=== PATIENT | female | born 1960 | race Caucasian/White ===

== ENCOUNTER → 2018-03-12 14:30 | Outpatient (CLI) | payer MEDICARE, OTHER, SELFPAY | PROVIDERS: PCP Physician Assistant Medical; Visit Provider Student in an Organized Health Care Education/Training Program | DX: Z47.89 Encounter for other orthopedic aftercare (principal); M70.22 Olecranon bursitis, left elbow; R22.32 Localized swelling, mass and lump, left upper limb ==

== ENCOUNTER → 2018-03-17 10:00 | Outpatient (CLI) | payer MEDICARE, OTHER, SELFPAY | PROVIDERS: PCP Physician Assistant Medical; Visit Provider Student in an Organized Health Care Education/Training Program | DX: T81.31XD Disruption of external operation (surgical) wound, not elsewhere classified, subsequent encounter (principal) ==

== ENCOUNTER → 2018-04-09 09:15 | Outpatient (CLI) | payer MEDICARE, OTHER, SELFPAY | PROVIDERS: PCP Physician Assistant Medical; Visit Provider Student in an Organized Health Care Education/Training Program | DX: Z47.89 Encounter for other orthopedic aftercare (principal); M70.22 Olecranon bursitis, left elbow | CPT/HCPCS: L3670 ==

== ENCOUNTER → 2018-04-25 09:55 | Outpatient (BNVA) | payer MEDICARE, OTHER, SELFPAY | PROVIDERS: PCP Physician Assistant Medical; Visit Provider Student in an Organized Health Care Education/Training Program | DX: Z47.89 Encounter for other orthopedic aftercare (principal); M70.22 Olecranon bursitis, left elbow ==

== ENCOUNTER → 2018-05-26 09:12 | Outpatient (BNVA) | payer MEDICARE, OTHER, SELFPAY | PROVIDERS: PCP Physician Assistant Medical; Referring Provider Physician Assistant Medical; Visit Provider Student in an Organized Health Care Education/Training Program | DX: T81.31XD Disruption of external operation (surgical) wound, not elsewhere classified, subsequent encounter (principal); M70.22 Olecranon bursitis, left elbow ==

== ENCOUNTER 2018-06-02 15:07 | Outpatient (REF) | payer MEDICARE, OTHER, SELFPAY ==
[2018-06-02 21:12] LABS: ALT 22 U/L (12-78); AST 14 U/L (15-37); Albumin 3.7 g/dL (3.4-5.0); Alkaline Phosphatase 80 U/L (46-116); Anion Gap 8.3 mmol/L (3-11); BUN 22 mg/dL (7-18); Bilirubin, Total 0.2 mg/dL (0.2-1.0); CO2 27.7 mmol/L (21.0-32.0); CREATININE 1.23 mg/dL (0.55-1.02); Calcium 9.5 mg/dL (8.5-10.1); Chloride 105 mmol/L (98-107); Cholesterol 165 mg/dL (50-200); Estimated GFR 45.33 (mL/min/1.73m2); Glucose 107 mg/dL (70-100); HDL Cholesterol 52 mg/dL (40-60); LDL CHOLESTEROL 87 mg/dL (<100); Potassium 4.7 mmol/L (3.5-5.1); Sodium 141 mmol/L (136-145); Total Protein 6.9 g/dL (6.4-8.2); Triglyceride 107 mg/dL (30-150)
== END 2018-06-02 15:27 ==
LOC: NCHCN 15:07
PROVIDERS: PCP Physician Assistant Medical; Visit Provider Physician Assistant Medical
DX: E78.5 Hyperlipidemia, unspecified (principal)
CPT/HCPCS: 80053; 80061; 83721

== ENCOUNTER → 2018-07-11 08:59 | Outpatient (BNVA) | payer MEDICARE, OTHER, SELFPAY | PROVIDERS: PCP Physician Assistant Medical; Referring Provider Physician Assistant Medical; Visit Provider Student in an Organized Health Care Education/Training Program | DX: M25.561 Pain in right knee (principal); T81.31XA Disruption of external operation (surgical) wound, not elsewhere classified, initial encounter; Z47.89 Encounter for other orthopedic aftercare; M70.22 Olecranon bursitis, left elbow | CPT/HCPCS: 99212; 99213 ==

== ENCOUNTER → 2018-08-15 09:59 | Outpatient (BNVA) | payer MEDICARE, OTHER, SELFPAY | PROVIDERS: PCP Physician Assistant Medical; Referring Provider Physician Assistant Medical; Visit Provider Student in an Organized Health Care Education/Training Program | DX: T81.31XD Disruption of external operation (surgical) wound, not elsewhere classified, subsequent encounter (principal); M70.22 Olecranon bursitis, left elbow | CPT/HCPCS: 99213 ==

== ENCOUNTER 2018-10-30 17:15 | Emergency (ER) | payer MEDICARE, OTHER, SELFPAY ==
[2018-10-30 17:39] VITALS: BP 160/90; PULSE 99; RESP 20; TEMP 36.8; O2SAT 97
--- NOTE | 2018-10-30 17:52 | ED.GENADUL_ITS ---
Discharge Plan Disposition Patient Disposition: HOME Condition: Stable Discharge Details Chief Complaint: RespSymp Clinical Impression: COPD exacerbation, Influenza A Primary Care Provider: [facility] ED Provider: Jacob Cevallos [place] Meds and New Rx's Prescriptions: New prednisone 20 mg tablet 60 mg PO DAILY 4 Days Qty: 12 RF: 0 levofloxacin 750 mg tablet 750 mg PO DAILY 4 Days Qty: 4 RF: 0 prochlorperazine maleate [Compazine] 10 mg tablet 10 mg PO TID PRN (Reason: nausea and vomiting) Qty: 30 RF: 0 oseltamivir [Tamiflu] 75 mg capsule 75 mg PO BID 5 Days Qty: 10 RF: 0 No Action ropinirole 2 mg tablet 2 mg PO QHS RF: 0 meloxicam 7.5 mg tablet 7.5 mg PO BID RF: 0 promethazine 25 mg tablet 25 mg PO Q6H PRNRF: 0 diphenoxylate-atropine 2.5-0.025 mg tablet 2 tab PO QID PRNRF: 0 furosemide [Lasix] 20 mg tablet 40 mg PO DAILY RF: 0 bupropion HCl [Wellbutrin SR] 200 mg tablet sustained-release 12 hr 200 mg PO BID RF: 0 ipratropium bromide 42 mcg (0.06 %) spray,non-aerosol 2 spray JOHNY TID RF: 0 albuterol sulfate [Ventolin HFA] 90 mcg/actuation HFA aerosol inhaler 2 puff IH Q6H PRNRF: 0 guaifenesin 200 mg tablet 600 mg PO BID RF: 0 oxycodone 20 mg tablet 20 mg PO BID RF: 0 Oxygen Tank .ROUTE .MEDSUPPLY Qty: 1 RF: 0 montelukast [Singulair] 10 MG tablet 10 mg PO HS RF: 0 rosuvastatin [Crestor] 10 MG tablet 10 mg PO HS RF: 0 loratadine [Claritin Liqui-Gel] 10 MG capsule 10 mg PO DAILY RF: 0 hydrochlorothiazide 25 MG tablet 25 mg PO DAILY RF: 0 Narcan 4 MG spray,non-aerosol 4 mg NS PRN Qty: 2 RF: 0 baclofen 10 mg tablet 10 mg PO TID PRNRF: 0 Dexilant 60 MG capsule,biphase delayed releas 60 mg PO DAILY RF: 0 gabapentin [Neurontin] 300 MG capsule 900 mg PO TID RF: 0 fluticasone propionate 16 GM spray,suspension 2 drp Intranasal DAILY RF: 0 citalopram 40 mg tablet 40 mg PO HS RF: 0 Symbicort 10.2 GM HFA aerosol inhaler 2 inh Inhalation BID RF: 0 lisinopril 10 MG tablet 10 mg PO DAILY RF: 0 Viberzi 100 MG tablet 100 mg PO BID RF: 0 Robitussin Cough and Cold CF 118 ML liquid 118 ml PO PRN PRNRF: 0 acetaminophen [Acetaminophen Extra Strength] 500 MG tablet 1,000 mg PO Q8H PRN PRNQty: 100 RF: 0 oxycodone 10 mg tablet 10 mg PO BID RF: 0 acetaminophen [Mapap Extra Strength] 500 MG tablet 1,000 mg PO QID PRNQty: 90 RF: 3 nystatin 100,000 UNIT/ML suspension 500,000 unit PO QID Qty: 200 RF: 1 Discharge Instructions Instructions: COPD (Chronic Obstructive Pulmonary Disease) (ED), H1N1 Influenza (ED) Additional Instructions: follow up with your primary care provider within a week if you feel you are becoming more ill or having worsening shortness of breath return to the emergency department for reevaluation Medical Decision Making 58 yo female with hx of copd comes in with chief complaint of increased cough for over a week along with myalgias and diarrhea. She denies recent travel or high fevers, has had chills. Denies ivdu, does smoke, denies alcohol. She is in no distress on exam speaking in full sentneces, she has wheezing throughout on her lung exam on both sides. No leg edema or calf pain and no pleuritic chest pain so doubt pe and no chest pressure or pain to suggest acs and physical exam is consistent with copd exacerbation. Will treat her for this wth neb and steroids and given increased cough start abx, will also chest for influenza pt remains hd stable, speaking in full sentences, only has mild apical wheezing now bilaterally. Flu test positive, will start tamiflu and will d/c home, advised f/u with pcp and return precautions given Differential Diagnosis copd exacerbation, uri, influenza, pna Lab Data Lab results reviewed: Yes I reviewed the patient's lab results. HPI General Mode of arrival: ambulatory . Date/Time Provider Initiated Documentation: 10/30/18 17:25 . Limitations to Documentation: no limitations . Information obtained by: patient . History of Present Illness 58 year old F presents to the emergency department with the chief complaint of cough, described as moderate, Patient started experiencing this week(s) (1) and it has been intermittent. No relieving factors improve symptom(s), No exacerbating factors reported . Patient did receive the following treatments prior to arrival, none Related Data Home Medications Medication Instructions Recorded Confirmed Dexilant 60 mg PO DAILY 07/11/13 10/30/18 fluticasone propionate 2 drp INTRANASAL DAILY 07/11/13 10/30/18 gabapentin [Neurontin] 900 mg PO TID 07/11/13 10/30/18 Symbicort 2 inh INHALATION BID 08/14/14 10/30/18 lisinopril 10 mg PO DAILY 08/14/14 10/30/18 montelukast [Singulair] 10 mg PO HS 02/21/17 10/30/18 rosuvastatin [Crestor] 10 mg PO HS 02/21/17 10/30/18 hydrochlorothiazide 25 mg PO DAILY tab-cap 02/25/17 10/30/18 loratadine [Claritin Liqui-Gel] 10 mg PO DAILY 02/25/17 10/30/18 Narcan 4 mg NS PRN #2 spray 06/04/17 10/30/18 acetaminophen [Mapap Extra 1,000 mg PO QID PRN #90 tab 06/04/17 10/30/18 Strength] Robitussin Cough and Cold CF 118 ml PO PRN PRN 03/03/18 10/30/18 Viberzi 100 mg PO BID 03/03/18 10/30/18 acetaminophen [Acetaminophen Extra 1,000 mg PO Q8H PRN PRN #100 tab 03/04/18 10/30/18 Strength] nystatin 500,000 unit PO QID #200 ml 03/18/18 10/30/18 Oxygen #1 each 10/16/18 10/30/18 albuterol sulfate HFA 90 2 puff IH Q6H PRN 10/16/18 10/30/18 mcg/actuation aerosol inhaler baclofen 10 mg tablet 10 mg PO TID PRN tab 10/16/18 10/30/18 bupropion HCl SR 200 mg tablet,12 200 mg PO BID 10/16/18 10/30/18 hr sustained-release citalopram 40 mg tablet 40 mg PO HS 10/16/18 10/30/18 diphenoxylate-atropine 2.5 2 tab PO QID PRN tab 10/16/18 10/30/18 mg-0.025 mg tablet furosemide 20 mg tablet 40 mg PO DAILY tab 10/16/18 10/30/18 guaifenesin 200 mg tablet 600 mg PO BID tab 10/16/18 10/30/18 ipratropium bromide 42 mcg (0.06 2 spray JOHNY TID 10/16/18 10/30/18 %) nasal spray meloxicam 7.5 mg tablet 7.5 mg PO BID tab 10/16/18 10/30/18 oxycodone 10 mg tablet 10 mg PO BID tab 10/16/18 10/30/18 oxycodone 20 mg tablet 20 mg PO BID tab 10/16/18 10/30/18 promethazine 25 mg tablet 25 mg PO Q6H PRN 10/16/18 10/30/18 ropinirole 2 mg tablet 2 mg PO QHS 10/16/18 10/30/18 levofloxacin 750 mg PO DAILY 4 Days #4 tab 10/30/18 oseltamivir [Tamiflu] 75 mg PO BID 5 Days #10 cap 10/30/18 prednisone 60 mg PO DAILY 4 Days #12 tab 10/30/18 prochlorperazine maleate 10 mg PO TID PRN #30 tab 10/30/18 [Compazine] Previous Rx's Medication Instructions Recorded Narcan 4 mg NS PRN #2 spray 06/04/17 acetaminophen [Mapap Extra 1,000 mg PO QID PRN #90 tab 06/04/17 Strength] acetaminophen [Acetaminophen Extra 1,000 mg PO Q8H PRN PRN #100 tab 03/04/18 Strength] nystatin 500,000 unit PO QID #200 ml 03/18/18 levofloxacin 750 mg PO DAILY 4 Days #4 tab 10/30/18 oseltamivir [Tamiflu] 75 mg PO BID 5 Days #10 cap 10/30/18 prednisone 60 mg PO DAILY 4 Days #12 tab 10/30/18 prochlorperazine maleate 10 mg PO TID PRN #30 tab 10/30/18 [Compazine] Allergies Allergy/AdvReac Type Severity Reaction Status Date / Time egg Allergy Mild Itching Unverified 10/30/18 17:42 pneumococcal vaccine Allergy Unknown Unverified 10/30/18 17:42 albuterol AdvReac Agitation Unverified 10/30/18 17:42 General Stated Complaint: RespSymp LATA: 3 Review of Systems Review of Systems All systems reviewed & are unremarkable except as noted in HPI and below Constitutional Denies chills and Denies weakness Eyes Denies loss of vision ENT Denies change in voice Cardiovascular Denies chest pain Gastrointestinal Denies vomiting Genitourinary Denies dysuria Integumentary/Breasts Denies rash Neurologic Denies loss of vision and Denies weakness [facility] Medical History Abdominal pain (Acute) Acute exacerbation of chronic obstructive pulmonary disease (COPD) (Acute) Elevated serum creatinine (Acute) Ganglion cyst (Acute) Hip pain, bilateral (Acute) Impaired fasting glucose (Acute) Knee pain, right (Acute) COPD (chronic obstructive pulmonary disease) (Chronic) Chronic back pain (Chronic) Chronic pain syndrome (Chronic) Depression (Chronic) GERD (gastroesophageal reflux disease) (Chronic) HTN (hypertension) (Chronic) Hyperlipidemia (Chronic) IBS (irritable bowel syndrome) (Chronic) Non-alcoholic fatty liver disease (Chronic) Restrictive lung disease (Chronic) Sleep disturbance (Chronic) Syncope (Chronic) Tobacco use disorder (Chronic) Surgical History Hx of cholecystectomy (Chronic) Social History Smoking/Tobacco Use Status: Current every day Alcohol Intake: never Drug use: Never Substance use type: does not use Do you feel safe in your relationship?: Yes Exam Const General: no acute distress Orientation: alert HENMT Head: normal to inspection Ears: external ears normal General nose exam: external nose normal Mouth: moist mucous membranes Eyes General: appearance normal, both eyes and all related structures Neck Neck: normal visual inspection Resp Effort & Inspection: normal respiratory effort and able to speak in complete sentences Cardio Rate: regular rate Skin General skin exam: no rashes or lesions noted Neuro General: alert and oriented x3 Extrem General: normal to inspection Psych Mental Status: mental status grossly normal Course Vital Signs Temperature 36.8 C 10/30/18 17:39 Pulse 99 H 10/30/18 17:39 Respiratory Rate 20 10/30/18 17:39 Blood Pressure 160/90 H 10/30/18 17:39 Pulse Oximetry 97 10/30/18 17:39 Temperature 36.8 C 10/30/18 17:39 Temperature Source Temporal Artery Scan 10/30/18 17:39 Pulse 99 H 10/30/18 17:39 Respiratory Rate 20 10/30/18 17:39 Respiratory Effort Non-Labored 10/30/18 17:39 Blood Pressure 160/90 H 10/30/18 17:39 Pulse Oximetry 97 10/30/18 17:39 Oxygen Delivery Method Room Air 10/30/18 17:39 Oxygen Flow Rate 0 10/30/18 17:39 Pain Level 12 10/30/18 17:39
[2018-10-30] MEDS: LEVOFLOXACIN 500 MG, LEVOFLOXACIN 250 MG 750 MG PO (18:03)
[2018-10-30] MEDS: methylPREDNISolone SUCC 125 MG VIAL IVP (18:03)
[2018-10-30] MEDS: Normal Saline 1,000 ML 1000 ML IV (18:03)
--- NOTE | 2018-10-30 18:04 | NUR.NOTE ---
patient medicated per MD order Nursing Note:
[2018-10-30 18:06] LABS: Abs Immature Grans 0.01 k/cumm (0.0-0.09); Absolute Basophil Count 0.02 k/cumm (0.0-0.2); Absolute Eosinophil Count 0.01 k/cumm (0.0-0.7); Absolute Monocyte Count 1.21 k/cumm (0.11-0.7); Absolute Neutrophil Count 4.51 k/cumm (1.2-6.7); Basophils % 0.3; Eosinophils % 0.1; HCT 40.7 % (36.0-46.0); HGB 12.9 g/dL (12.0-15.5); Immature Grans % 0.1; Lymphocytes % 18.4; Mean Corp. HGB Concentration 31.7 g/dL (32.0-36.0); Mean Corpuscular Hemoglobin 26.9 pg (27.0-33.0); Monocytes % 17.1; Platelet Count 271 x1000/uL (130-400); RBC 4.79 m/cumm (4.00-5.20); RBC Distribution Width 16.9 % (11.7-14.6); White Blood Cell Count 7.06 k/cumm (4.4-10.8)
[2018-10-30 18:17] LABS: ALT 30 U/L (12-78); AST 20 U/L (15-37); Albumin 3.6 g/dL (3.4-5.0); Alkaline Phosphatase 103 U/L (46-116); Anion Gap 8.6 mmol/L (3-11); BUN 11 mg/dL (7-18); Bilirubin, Total 0.2 mg/dL (0.2-1.0); CO2 28.4 mmol/L (21.0-32.0); CREATININE 1.12 mg/dL (0.55-1.02); Calcium 9.2 mg/dL (8.5-10.1); Chloride 101 mmol/L (98-107); Estimated GFR 50.32 (mL/min/1.73m2); Glucose 92 mg/dL (70-100); Potassium 3.7 mmol/L (3.5-5.1); Sodium 138 mmol/L (136-145); Total Protein 7.9 g/dL (6.4-8.2)
[2018-10-30] MEDS: Oseltamivir 75 MG CAP PO (18:44)
[2018-10-30 18:46] VITALS: BP 158/79; PULSE 93; RESP 20; TEMP 38.5; O2SAT 98
[2018-10-30] MEDS: Acetaminophen 500 MG TAB (19:15)
== END 2018-10-30 19:13 | disposition home or self-care (01) ==
PROVIDERS: Emergency Provider Emergency Medicine; PCP Physician Assistant Medical
DX: J44.1 Chronic obstructive pulmonary disease with (acute) exacerbation (principal); J10.1 Influenza due to other identified influenza virus with other respiratory manifestations; F17.210 Nicotine dependence, cigarettes, uncomplicated; I10 Essential (primary) hypertension
CPT/HCPCS: 36415; 80053; 87449; 96361; 96374; 99284; 85025; J2930

== ENCOUNTER 2018-11-13 04:59 | Inpatient (IN) | payer MEDICARE, OTHER, MEDICAID, SELFPAY ==
[2018-11-13] VITALS (110 sets, daily range): BP systolic 84–223; BP diastolic 54–157; PULSE 78–134; RESP 10–47; TEMP 35.5–36.3; O2SAT 55–95
--- NOTE | 2018-11-13 05:23 | ED.GENADUL_ITS ---
Discharge Plan Disposition Patient Disposition: [facility] INPATIENT Condition: Stable Discharge Details Chief Complaint: AMS/LOC Clinical Impression: Hypoxia, Pneumonia, Altered mental status Primary Care Provider: [facility] ED Provider: Jacob Cevallos [place] Meds and New Rx's Prescriptions: No Action ropinirole 2 mg tablet 2 mg PO QHS RF: 0 meloxicam 7.5 mg tablet 7.5 mg PO BID RF: 0 promethazine 25 mg tablet 25 mg PO Q6H PRNRF: 0 diphenoxylate-atropine 2.5-0.025 mg tablet 2 tab PO QID PRNRF: 0 furosemide [Lasix] 20 mg tablet 40 mg PO DAILY RF: 0 bupropion HCl [Wellbutrin SR] 200 mg tablet sustained-release 12 hr 200 mg PO BID RF: 0 ipratropium bromide 42 mcg (0.06 %) spray,non-aerosol 2 spray JOHNY TID RF: 0 albuterol sulfate [Ventolin HFA] 90 mcg/actuation HFA aerosol inhaler 2 puff IH Q6H PRNRF: 0 guaifenesin 200 mg tablet 600 mg PO BID RF: 0 oxycodone 20 mg tablet 20 mg PO BID RF: 0 Oxygen Tank .ROUTE .MEDSUPPLY Qty: 1 RF: 0 montelukast [Singulair] 10 MG tablet 10 mg PO HS RF: 0 rosuvastatin [Crestor] 10 MG tablet 10 mg PO HS RF: 0 loratadine [Claritin Liqui-Gel] 10 MG capsule 10 mg PO DAILY RF: 0 hydrochlorothiazide 25 MG tablet 25 mg PO DAILY RF: 0 Narcan 4 MG spray,non-aerosol 4 mg NS PRN Qty: 2 RF: 0 baclofen 10 mg tablet 10 mg PO TID PRNRF: 0 Dexilant 60 MG capsule,biphase delayed releas 60 mg PO DAILY RF: 0 gabapentin [Neurontin] 300 MG capsule 900 mg PO TID RF: 0 fluticasone propionate 16 GM spray,suspension 2 drp Intranasal DAILY RF: 0 citalopram 40 mg tablet 40 mg PO HS RF: 0 Symbicort 10.2 GM HFA aerosol inhaler 2 inh Inhalation BID RF: 0 lisinopril 10 MG tablet 10 mg PO DAILY RF: 0 Viberzi 100 MG tablet 100 mg PO BID RF: 0 Robitussin Cough and Cold CF 118 ML liquid 118 ml PO PRN PRNRF: 0 acetaminophen [Acetaminophen Extra Strength] 500 MG tablet 1,000 mg PO Q8H PRN PRNQty: 100 RF: 0 oxycodone 10 mg tablet 10 mg PO BID RF: 0 acetaminophen [Mapap Extra Strength] 500 MG tablet 1,000 mg PO QID PRNQty: 90 RF: 3 nystatin 100,000 UNIT/ML suspension 500,000 unit PO QID Qty: 200 RF: 1 prochlorperazine maleate [Compazine] 10 mg tablet 10 mg PO TID PRN (Reason: nausea and vomiting) Qty: 30 RF: 0 Medical Decision Making 58 yo female with hx of copd, gerd, anxiety, depression, chronic pain, comes in with her with her stating I'm crazy. The states he went to bed around 9pm last night before she goes to bed which is their usual routine. He woke up this morning at his normal time and went into the kitchen and the patient was sleeping standing up with her head on the kitchen table. When he w sukhjinder her up she was shaking her arms and speaking nonsense and gibberish per the so he brought her here. On arrival the patient is speaking in full sentences and does have tremors of her hand. She is oriented to her name and place and year, is not sure of exact time but knows it is morning. Her speech is clear, she does appear anxious on exam as well. PERRL, no focal motor deficits. Denies drug use or alcohol use. She just finished a course of tamiflu last week after being dx'd with influenza. She is noted to be on a lot of different medications, states he has told this to her providers but none have been taken off. She has not had any recent fevers or falls. Broad differential for her altered mental status, she is noted to be in the 70's on room air so this could be hypoxia driven, does have wheezing on exam, will treat with nebs and steroids, and eval for toxic ingestants, electrolyte abnormalities, and obtain imaging of the head to eval for structural causes such as sdh and also imaging of the chest to eval for pna vs pe as a cause for her hypoxia pt was still in the mid 80's after nrb, placed on bipap and had significant improvement with work of breathing and oxygenation now in the mid 90's and speaking better and states she feels much improved. Labs show wbc of 17, mike and anion gap acidosis. On my read of head ct I do not see acute pathology, on ct chest I do not see a PE but likely does have bilateral pna. Will obtain blood cultures, was on levfloxacin within the last 2 weeks so will tx with zosyn and discuss with hospitalist about admission spoke with Dr. Alvarez who accepts for admission and would like vancomycin given as well given recent influenza. CT head and chest reads still pending Differential Diagnosis delirium, pna, copd, polypharmacy, sdh, electrolyte abnormality Imaging Data Radiologic Study: Attestation: I personally reviewed and interpreted this imaging study as follows: Imaging: CT Scan My impression: no acute findings on head ct Radiologic Study #2: Attestation: I personally reviewed and interpreted this imaging study as follows: Imaging: CT Scan My impression: bilateral pneumonia on chest ct Lab Data Lab results reviewed: Yes I reviewed the patient's lab results. ECG Data Attestation: I personally reviewed and interpreted this ECG (s) as follows: Prior ECG tracings: not available for review Interpretation: sinus rhythm, rate of 114, pr 130, mild st depressions in the lateral leads HPI General Mode of arrival: wheelchair . Date/Time Provider Initiated Documentation: 11/13/18 05:01 . Limitations to Documentation: altered mental status . Information obtained by: patient and family . History of Present Illness 58 year old F presents to the emergency department with the chief complaint of I'm Crazy, described as severe, Patient started experiencing this unknown and it has been constant. No relieving factors improve symptom(s), No exacerbating factors reported . Patient did receive the following treatments prior to arrival, none Related Data Home Medications Medication Instructions Recorded Confirmed Dexilant 60 mg PO DAILY 07/11/13 11/13/18 fluticasone propionate 2 drp INTRANASAL DAILY 07/11/13 11/13/18 gabapentin [Neurontin] 900 mg PO TID 07/11/13 11/13/18 Symbicort 2 inh INHALATION BID 08/14/14 11/13/18 lisinopril 10 mg PO DAILY 08/14/14 11/13/18 montelukast [Singulair] 10 mg PO HS 02/21/17 11/13/18 rosuvastatin [Crestor] 10 mg PO HS 02/21/17 11/13/18 hydrochlorothiazide 25 mg PO DAILY tab-cap 02/25/17 11/13/18 loratadine [Claritin Liqui-Gel] 10 mg PO DAILY 02/25/17 11/13/18 Narcan 4 mg NS PRN #2 spray 06/04/17 11/13/18 acetaminophen [Mapap Extra 1,000 mg PO QID PRN #90 tab 06/04/17 11/13/18 Strength] Robitussin Cough and Cold CF 118 ml PO PRN PRN 03/03/18 11/13/18 Viberzi 100 mg PO BID 03/03/18 11/13/18 acetaminophen [Acetaminophen Extra 1,000 mg PO Q8H PRN PRN #100 tab 03/04/18 10/30/18 Strength] nystatin 500,000 unit PO QID #200 ml 03/18/18 11/13/18 Oxygen #1 each 10/16/18 10/30/18 albuterol sulfate HFA 90 2 puff IH Q6H PRN 10/16/18 11/13/18 mcg/actuation aerosol inhaler baclofen 10 mg tablet 10 mg PO TID PRN tab 10/16/18 11/13/18 bupropion HCl SR 200 mg tablet,12 200 mg PO BID 10/16/18 11/13/18 hr sustained-release citalopram 40 mg tablet 40 mg PO HS 10/16/18 11/13/18 diphenoxylate-atropine 2.5 2 tab PO QID PRN tab 10/16/18 11/13/18 mg-0.025 mg tablet furosemide 20 mg tablet 40 mg PO DAILY tab 10/16/18 11/13/18 guaifenesin 200 mg tablet 600 mg PO BID tab 10/16/18 11/13/18 ipratropium bromide 42 mcg (0.06 2 spray JOHNY TID 10/16/18 11/13/18 %) nasal spray meloxicam 7.5 mg tablet 7.5 mg PO BID tab 10/16/18 11/13/18 oxycodone 10 mg tablet 10 mg PO BID tab 10/16/18 11/13/18 oxycodone 20 mg tablet 20 mg PO BID tab 10/16/18 11/13/18 promethazine 25 mg tablet 25 mg PO Q6H PRN 10/16/18 11/13/18 ropinirole 2 mg tablet 2 mg PO QHS 10/16/18 11/13/18 prochlorperazine maleate 10 mg PO TID PRN #30 tab 10/30/18 11/13/18 [Compazine] Previous Rx's Medication Instructions Recorded Narcan 4 mg NS PRN #2 spray 06/04/17 acetaminophen [Mapap Extra 1,000 mg PO QID PRN #90 tab 06/04/17 Strength] acetaminophen [Acetaminophen Extra 1,000 mg PO Q8H PRN PRN #100 tab 03/04/18 Strength] nystatin 500,000 unit PO QID #200 ml 03/18/18 prochlorperazine maleate 10 mg PO TID PRN #30 tab 10/30/18 [Compazine] Allergies Allergy/AdvReac Type Severity Reaction Status Date / Time egg Allergy Mild Itching Unverified 11/13/18 05:37 pneumococcal vaccine Allergy Unknown Unverified 11/13/18 05:37 albuterol AdvReac Agitation Unverified 11/13/18 05:37 General LATA: 3 Review of Systems Review of Systems Unobtainable due to mental status [facility] Social History Smoking/Tobacco Use Status: Current every day Alcohol Intake: never Drug use: Never Substance use type: does not use Do you feel safe in your relationship?: Yes Exam Const General: anxious Orientation: alert HENMT Head: normal to inspection Ears: external ears normal General nose exam: external nose normal Mouth: moist mucous membranes Eyes General: appearance normal, both eyes and all related structures Neck Neck: normal visual inspection Resp Effort & Inspection: other (wheezing) Cardio Rate: tachycardic Skin General skin exam: no rashes or lesions noted Neuro General: alert and oriented Patient Orientation: Person and Place Extrem General: normal to inspection Psych Mental Status: mental status grossly normal Critical Care Time Critical Care Time: Yes Total Critical Care Time: 45 Attestation: time spent with ecg, lab review and frequent monitoring of hemodynamics and pt rechecks and initiating bipap in patient with hypoxia and respiratory distress and potential to deteriorate at any time
[2018-11-13 05:26] LABS: Abs Immature Grans 0.07 k/cumm (0.0-0.09); Basophils % 0.1; HCT 34.1 % (36.0-46.0); HGB 11.1 g/dL (12.0-15.5); Immature Grans % 0.4; Lymphocytes % 8.7; Mean Corp. HGB Concentration 32.6 g/dL (32.0-36.0); Mean Corpuscular Hemoglobin 27.5 pg (27.0-33.0); Mean Corpuscular Volume 84.4 fL (80-95); Mean Platelet Volume 11.1 fL (8.0-11.0); Neutrophils % 83.8; Platelet Count 278 x1000/uL (130-400); RBC 4.04 m/cumm (4.00-5.20); RBC Distribution Width 16.2 % (11.7-14.6); White Blood Cell Count 17.21 k/cumm (4.4-10.8)
[2018-11-13 05:27] LABS: Absolute Basophil Count 0.02 k/cumm (0.0-0.2); Absolute Neutrophil Count 14.42 k/cumm (1.2-6.7)
[2018-11-13] MEDS: Normal Saline 1,000 ML 1000 ML IV (05:30)
[2018-11-13] MEDS: Albuterol/Ipratropium 3 ML UPD VIAL UPD ×3 (05:30→14:34)
[2018-11-13] MEDS: methylPREDNISolone SUCC 125 MG VIAL IVP (05:30)
[2018-11-13 05:37] LABS: Ammonia < 10 umol/L (11-32)
[2018-11-13 05:40] LABS: HCO3 (Venous) 21 mmol/L (22-28); O2 Sat (Venous) 30 % (70-80); TCO2 (Venous) 20 mmol/L (22-29); pCO2 (Venous) 40 mm/Hg (34-47); pH (Venous) 7.33 (7.32-7.43); pO2 (Venous) 19 mm/Hg (28-44)
[2018-11-13 05:41] LABS: ALT 28 U/L (12-78); AST 25 U/L (15-37); Albumin 3.1 g/dL (3.4-5.0); Alkaline Phosphatase 99 U/L (46-116); Anion Gap 17.3 mmol/L (3-11); BUN 27 mg/dL (7-18); Bilirubin, Direct 0.14 mg/dL (0.00-0.20); Bilirubin, Total 0.5 mg/dL (0.2-1.0); CO2 19.7 mmol/L (21.0-32.0); CREATININE 1.92 mg/dL (0.55-1.02); Calcium 9.2 mg/dL (8.5-10.1); Chloride 98 mmol/L (98-107); Estimated GFR 27.02 (mL/min/1.73m2); Glucose 163 mg/dL (70-100); Lipase 77 U/L (73-393); Magnesium 1.3 mg/dL (1.8-2.4); Potassium 4.1 mmol/L (3.5-5.1); Sodium 135 mmol/L (136-145); Total Protein 7.5 g/dL (6.4-8.2)
--- NOTE | 2018-11-13 05:41 | DI.CT_ITS ---
SYMPTOM/DIAGNOSIS: SOB, HYPOXIA, ALTERED MENTAL STATUS PE CHEST CT: CT angiography was performed with multi slice acquisition and multi planar and 3D reconstruction. The examination was carried out with intravenous administration of 70 cc's of Omnipaque 350. There is no evidence of pulmonary embolic disease. Diffuse aveolar and interstitial opacities are noted in the lungs. Also multiple granulomas are identified. The heart is somewhat enlarged. There is no pericardial effusion. There is no evidence of right heart strain. There is no evidence of an aortic aneurysm or dissection. There is no evidence of a pneumothorax or pleural effusion. There is no evidence of lymphadenopathy. Incidental note is made of a 2.8 cm. left adrenal nodule. No acute bony abnormality is seen. The soft tissues are unremarkable. SUMMARY: Suboptimal examination due to patient motion revealing no evidence of pulmonary emboli. Note is made of diffuse aveolar and interstitial opacities, the findings could represent aveolar and interstitial pulmonary edema or conceivably an atypical infection. Note is also made of a 2.8 cm. left adrenal nodule. If a prior examination is not extant, then further assessment with CT or MRI could be performed. NONCONTRAST HEAD CT: A noncontrast enhanced examination was performed. There is no evidence of an intra/extra-axial hemorrhage. The majano white matter differentiation is maintained throughout. There is no mass or fluid collection. The ventricles are unremarkable. There is no evidence of a skull fracture. The paranasal sinuses are normal. There is no mastoid effusion. SUMMARY: No evidence of an acute intracranial abnormality.
[2018-11-13 05:42] LABS: Salicylate 3.7 mg/dL (2.8-20.0)
[2018-11-13 05:44] LABS: Acetaminophen < 2 ug/mL (10-30); PTT Activated 22.9 sec (21.0-31.4); Prothrombin Time 9.9 sec (9.3-11.0)
[2018-11-13 05:49] LABS: ETHANOL BLOOD < 3.0 mg/dL (<3)
[2018-11-13] MEDS: MAGNESIUM SULFATE 2 GM/50 ML BAG IVPB (06:10)
[2018-11-13] MEDS: Omnipaque 350 MG/ML 100 ML BTL IJ (06:11)
--- NOTE | 2018-11-13 06:38 | DI.VRAD_ITS ---
EXAM: CT Head Without Contrast EXAM DATE/TIME: 11/13/2018 5:11 AM CLINICAL HISTORY: 58 years old, female; Signs and symptoms; Alteration of consciousness; Transient alteration of awareness TECHNIQUE: Imaging protocol: Axial computed tomography images of the head/brain without contrast. Coronal and sagittal reformatted images were created and reviewed. Radiation optimization: All CT scans at this facility use at least one of these dose optimization techniques: automated exposure control; mA and/or kV adjustment per patient size (includes targeted exams where dose is matched to clinical indication); or iterative reconstruction. COMPARISON: No relevant prior studies available. FINDINGS: Brain: Typical for age. No hemorrhage. No evidence of acute infarct. No mass. Ventricles: No ventriculomegaly. Bones/joints: Unremarkable. Sinuses: No sinus fluid. Mastoid air cells: Unremarkable. Soft tissues: Unremarkable. IMPRESSION: No acute intracranial abnormality. Dictated and Authenticated by: Apolinar Frye MD. Ordering:ARJUN James MD
--- NOTE | 2018-11-13 06:43 | DI.VRAD_ITS ---
EXAM: CT Angiography Chest With Contrast EXAM DATE/TIME: 11/13/2018 5:18 AM CLINICAL HISTORY: 58 years old, female; Signs and symptoms; Shortness of breath and other: Hypoxia TECHNIQUE: Imaging protocol: Axial computed tomographic angiography images of the chest with intravenous contrast using CT angiography protocol. Coronal and sagittal reformatted images were created and reviewed. 3D rendering: MIP reconstructed images were created and reviewed. Radiation optimization: All CT scans at this facility use at least one of these dose optimization techniques: automated exposure control; mA and/or kV adjustment per patient size (includes targeted exams where dose is matched to clinical indication); or iterative reconstruction. Contrast material: [id number] Contrast volume: 70 ml Contrast route: iv COMPARISON: No relevant prior studies available. FINDINGS: Pulmonary arteries: Unremarkable. No obvious pulmonary emboli. Aorta: Unremarkable. No aortic aneurysm. No aortic dissection. Lungs: Diffuse alveolar and interstitial lung opacities. Multiple calcified granulomas in the lungs. Pleural space: Unremarkable. No pneumothorax. No pleural effusion. Heart: Unremarkable. No pericardial effusion. No obvious heart strain. Adrenals: 2.8 cm left adrenal nodule. Lymph nodes: Unremarkable. No enlarged lymph nodes. Bones/joints: Unremarkable. No acute fracture. Soft tissues: Unremarkable. Other findings: Limited motion degraded study. IMPRESSION: 1. Diffuse alveolar and interstitial lung opacities could be severe alveolar and interstitial pulmonary edema or atypical infection. 2. 2.8 cm left adrenal nodule. If there are no old studies to document stability then CT or MRI adrenal mass protocol could be performed. Dictated and Authenticated by: Apolinar Frye MD. Ordering:ARJUN James MD
[2018-11-13] MEDS: PIPERACILLIN/TAZO 4.5 GM in Normal Saline 100 ML IVPB ×2 (06:59→14:45)
[2018-11-13] MEDS: VANCOMYCIN 1,000 MG in Normal Saline 250 ML 166.6666 MG IVPB (07:20)
--- NOTE | 2018-11-13 07:21 | HPE_ITS ---
Date of service: 11/13/18 Time of Service: 07:21 Assessment and Plan (1) Acute respiratory failure with hypoxia: Current visit: Yes Status: Acute Continue broad-spectrum antibiotics including Zosyn, vancomycin, doxycycline. Patient recently received Levaquin for outpatient treatment of COPD exacerbation. Given her recent influenza A infection she should receive vancomycin for post influenza pneumonia. Zosyn is being used since she failed Levaquin treatment and has structural lung disease is at high risk for gram negatives including Pseudomonas. Patient be given stress dose IV corticosteroids and supportive care with noninvasive positive pressure ventilation. She did not require any Narcan as she exhibited no apneic spells and remains arousable to noxious stimulation. She will be kept n.p.o. until she is more alert and oriented and able to safely protect her airway. (2) COPD exacerbation: Current visit: Yes Status: Acute As above for treatment of complicated community-acquired pneumonia (3) Acute kidney injury (nontraumatic): Current visit: Yes Status: Acute Patient's baseline renal function is normal with a BUN of 11 and a creatinine of 1.12 but she presents with an elevated BUN of 27 and creatinine 1.92. I did a bedside [id number] ultrasound of her heart and lungs. Lung exam shows diffuse multiple B lines and multiple lung chin consistent with an acute interstitial process. Echocardiogram shows normal left ventricular function and an IVC that has greater than 50% respirophasic diameter changes. Suggesting that she is volume responsive. Patient received 1 L of normal saline in the emergency department and I have ordered a second liter of normal saline to go at a rate of 250 mL an hour over 4 hours. Further IV fluids will be adjudicated by the day hospitalist. (4) Community acquired pneumonia: Current visit: Yes Status: Acute Continue broad-spectrum IV antibiotics including doxycycline for atypical coverage, Zosyn for coverage of strep, H flu, Moraxella, gram negatives includin g resistant organisms such as Pseudomonas. Vancomycin has been added for staph coverage in the setting of recent influenza infection. Patient will continue on stress dose IV corticosteroids along with aerosolized bronchodilators and noninvasive positive pressure ventilation. If she becomes more obtunded and unarousable or hypercarbic or hypoxemic on the BiPAP and she will require intubation and mechanical ventilation. Qualifiers: Laterality: unspecified laterality Qualified Code(s): J18.9 - Pneumonia, unspecified organism (5) GERD (gastroesophageal reflux disease): Current visit: No Status: Chronic change dexilant to iv protonix while NPO (6) DVT prophylaxis: Current visit: Yes Status: Acute enoxaparin at renal reduced dosing History of Present Illness Chief Complaint: acute confusion Narrative: 58-year-old female with a history of COPD, depression, chronic pain, GERD, anxiety, hypertension, hyperlipidemia presents emergency department from home brought by her after the patient had been found early this morning sleeping with her head on the kitchen table. Patient's last new her to be in her normal state around 9 PM last night when he went to bed. It is not unusual for her to go to bed after he goes to bed. He got up for work this morning and found her with her head on the kitchen table asleep and when he attempted to wake her she was speaking nonsensical gibberish according to the and was shaking her arms. On arrival to the emergency department she was evaluated by Dr. Jacob Cevallos who found her responsive and able to speak in full sentences and she was oriented to person place time and circumstance but was somewhat tremulous in her arms and hands but no seizures. He did not find any focal motor deficits. She reportedly denied any alcohol or illicit drug use. She had recently been treated for influenza on October 30, 2018 and was also treated for COPD exacerbation with Levaquin and prednisone. She is on multiple medications for her chronic pain including baclofen, gabapentin, oxycodone and has multiple medications for nausea including Compazine and Phenergan as well as medications for her depression anxiety including Wellbutrin and citalopram. She denied any ingestion of extra doses of her medications. While in the emergency room she was noted to be hypoxemic with an oxygen saturation in the 70s on room air and only came up into the mid 80s on nonrebreather mask necessitating initiation of BiPAP noninvasive positive pressure ventilation which brought her saturation into the low to mid 90s. Because of the presentation with acute confusion noncontrast CT scan of the head was performed and showed no acute intracranial abnormality. CTA of the chest was performed was a suboptimal examination due to patient motion artifact but no evidence of pulmonary emboli were noted. Patient was found to have a diffuse alveolar and interstitial opacities which the radiologist read as conceivably atypical infection versus interstitial pulmonary edema. Incidental finding was a 2.8 cm left adrenal nodule. Treatment in the ER included multiple DuoNeb aerosol treatments, antibiotics (Zosyn and Vancomycin) and steroids (Solumedrol). Patient remains somnolent but not having any apnea spells. RR remains steady in the 15 to 18 range and her oxygen saturation remains 93-95%. She is admitted to ICU for treatment of complicated pneumonia and COPD leading to acute hypoxic respiratory failure. Review of Systems Review of Systems Unobtainable due to mental status PFSH Medical History GERD (gastroesophageal reflux disease) (Chronic) Tobacco abuse (Chronic) Essential hypertension (Chronic) Hyperlipidemia (Chronic) Anxiety disorder (Chronic) Depression (Chronic) Acute exacerbation of chronic obstructive pulmonary disease (COPD) (Acute) Elevated serum creatinine (Acute) COPD (chronic obstructive pulmonary disease) (Chronic) Chronic back pain (Chronic) Chronic pain syndrome (Chronic) GERD (gastroesophageal reflux disease) (Chronic) Ganglion cyst (Chronic) Hip pain, bilateral (Chronic) Hyperlipidemia (Chronic) IBS (irritable bowel syndrome) (Chronic) Impaired fasting glucose (Chronic) Knee pain, right (Chronic) Non-alcoholic fatty liver disease (Chronic) Restrictive lung disease (Chronic) Sleep disturbance (Chronic) Syncope (Chronic) Tobacco use disorder (Chronic) Abdominal pain (Resolved) Surgical History Hx of cholecystectomy (Chronic) History of bursectomy (Resolved) History of cholecystectomy (Resolved) Social History Smoking/Tobacco Use Status: Current every day Alcohol Intake: never Drug use: Never Substance use type: does not use Do you feel safe in your relationship?: Yes Meds Home Medications Medication Instructions Recorded Confirmed Type Dexilant 60 mg PO DAILY 07/11/13 11/13/18 History fluticasone propionate 2 drp INTRANASAL DAILY 07/11/13 11/13/18 History gabapentin [Neurontin] 900 mg PO TID 07/11/13 11/13/18 History Symbicort 2 inh INHALATION BID 08/14/14 11/13/18 History lisinopril 10 mg PO DAILY 08/14/14 11/13/18 History montelukast [Singulair] 10 mg PO HS 02/21/17 11/13/18 History rosuvastatin [Crestor] 10 mg PO HS 02/21/17 11/13/18 History hydrochlorothiazide 25 mg PO DAILY tab-cap 02/25/17 11/13/18 History loratadine [Claritin Liqui-Gel] 10 mg PO DAILY 02/25/17 11/13/18 History Narcan 4 mg NS PRN #2 spray 06/04/17 11/13/18 Rx acetaminophen [Mapap Extra 1,000 mg PO QID PRN #90 tab 06/04/17 11/13/18 Rx Strength] Robitussin Cough and Cold CF 118 ml PO PRN PRN 03/03/18 11/13/18 History Viberzi 100 mg PO BID 03/03/18 11/13/18 History acetaminophen [Acetaminophen Extra 1,000 mg PO Q8H PRN PRN #100 tab 03/04/18 10/30/18 Rx Strength] nystatin 500,000 unit PO QID #200 ml 03/18/18 11/13/18 Rx Oxygen #1 each 10/16/18 10/30/18 History albuterol sulfate HFA 90 2 puff IH Q6H PRN 10/16/18 11/13/18 History mcg/actuation aerosol inhaler baclofen 10 mg tablet 10 mg PO TID PRN tab 10/16/18 11/13/18 History bupropion HCl SR 200 mg tablet,12 200 mg PO BID 10/16/18 11/13/18 History hr sustained-release citalopram 40 mg tablet 40 mg PO HS 10/16/18 11/13/18 History diphenoxylate-atropine 2.5 2 tab PO QID PRN tab 10/16/18 11/13/18 History mg-0.025 mg tablet furosemide 20 mg tablet 40 mg PO DAILY tab 10/16/18 11/13/18 History guaifenesin 200 mg tablet 600 mg PO BID tab 10/16/18 11/13/18 History ipratropium bromide 42 mcg (0.06 2 spray JOHNY TID 10/16/18 11/13/18 History %) nasal spray meloxicam 7.5 mg tablet 7.5 mg PO BID tab 10/16/18 11/13/18 History oxycodone 10 mg tablet 10 mg PO BID tab 10/16/18 11/13/18 History oxycodone 20 mg tablet 20 mg PO BID tab 10/16/18 11/13/18 History promethazine 25 mg tablet 25 mg PO Q6H PRN 10/16/18 11/13/18 History ropinirole 2 mg tablet 2 mg PO QHS 10/16/18 11/13/18 History prochlorperazine maleate 10 mg PO TID PRN #30 tab 10/30/18 11/13/18 Rx [Compazine] Allergies Allergy/AdvReac Type Severity Reaction Status Date / Time egg Allergy Mild Itching Unverified 11/13/18 05:37 pneumococcal vaccine Allergy Unknown Unverified 11/13/18 05:37 albuterol AdvReac Agitation Unverified 11/13/18 05:37 Exam Const General: not in acute distress, ill appearing acutely and lethargic Nutritional Appearance: overweight Orientation: obtunded (she is arouseable to sternal rub and will answer my questions w/ repeated) Limitations: altered mental status [facility] Head: normal to inspection, no palpable skull fracture, normocephalic and atraumatic Ears: hearing grossly normal bilaterally General nose exam: external nose normal and nares normal Face and sinus: normal facial exam Mouth: oral mucosae normal Eyes General: appearance normal, both eyes and all related structures Visual Chin: normal visual chin by confrontation Alignment and Position: alignment normal Periorbital: periorbital findings normal Eyelids: eyelids normal Conjunctivae: conjunctivae normal Sclera: sclerae normal Cornea: corneas normal Pupils: PERRL and normal by confrontation EOM: EOM intact bilaterally Neck Neck: normal visual inspection, full ROM, no lymphadenopathy, trachea midline, supple and no JVD Thyroid: thyroid normal Carotids: normal carotid upstroke Lymphatic: no lymphadenopathy noted Chest Chest: normal inspection of the chest Resp Effort & Inspection: normal respiratory effort Auscultation: crackles bilaterally at the base, rhonchi upper bilaterally and lower bilaterally and wheezes scattered wheezes Cardio Jugular venous pressure: no JVD Palpation: normal PMI Rate: regular rate Rhythm: regular rhythm Heart Sounds: S1 normal, S2 normal and no murmurs Pulses: normal peripheral pulses GI Inspection: normal to inspection and obesity Palpation: soft, no hepatosplenomegaly and nontender Percussion: normal to percussion Auscultation: normal bowel sounds Skin General skin exam: no rashes or lesions noted, elasticity normal and turgor normal Neuro General: obtunded (lethargic but arouseable; when awakened she is oriented to person/place/yr) Cranial Nerves: CN's II-XI intact bilaterally Cognition: normal cognition Speech: speech normal Motor: muscle tone normal throughout, strength 5/5 throughout and tremor bilateral upper extremity asterixis Sensory Exam: no sensory deficits noted Pupils: Normal pupillary reactivity/response: bilateral Extrem General: normal to inspection, full ROM, normal capillary refill, no joint enlargement and no clubbing, cyanosis or edema Psych Appearance: well kempt Mental Status: other (somnolent but arouseable; unable to sustain conversation) Speech and Movement: speech and movement normal Mood: other (somnolent but arouseable; unable to sustain conversation) Attitude: cooperative Thought Process: circumstantial Thought Content: normal Insight: other (unable to assess) Judgment: other (unable to assess) Results Imaging CT scan - chest: report reviewed (SUMMARY: Suboptimal examination due to patient motion revealing no evidence of pulmonary emboli. Note is made of diffuse aveolar and interstitial opacities, the findings could represent aveolar and interstitial pulmonary edema or conceivably an atypical infection. Note is also made of a 2.8 cm. ) and image reviewed Additional studies: CT head w/out contrast: SUMMARY: No evidence of an acute intracranial abnormality. Labs : 11/13/18 05:15 11/13/18 05:15 Laboratory Results - last 24 hr 11/13/18 11/13/18 11/13/18 05:15 05:15 05:15 WBC RBC Hgb Hct MCV MCH MCHC RDW Plt Count MPV Immature Gran % Neutrophils % Lymphocytes % Monocytes % Eosinophils % Basophils % Absolute Neutrophils Absolute Lymphocytes Absolute Monocytes Absolute Eosinophils Absolute Basophils PT INR APTT VBG pH VBG pCO2 VBG pO2 VBG HCO3 VBG Total CO2 VBG O2 Saturation VBG Base Excess Sodium 135 L Potassium 4.1 Chloride 98 Carbon Dioxide 19.7 L Anion Gap 17.3 H BUN 27 H Creatinine 1.92 H Estimated GFR/1.73 m2 27.02 Glucose 163 H Calcium 9.2 Magnesium 1.3 L Total Bilirubin 0.5 Conjugated Bilirubin 0.14 AST 25 ALT 28 Alkaline Phosphatase 99 Ammonia < 10 L Total Protein 7.5 Albumin 3.1 L Lipase 77 Salicylates 3.7 Acetaminophen < 2 L Ethyl Alcohol < 3.0 11/13/18 11/13/18 11/13/18 05:15 05:15 05:37 WBC 17.21 H RBC 4.04 Hgb 11.1 L Hct 34.1 L MCV 84.4 MCH 27.5 MCHC 32.6 RDW 16.2 H Plt Count 278 MPV 11.1 H Immature Gran % 0.4 Neutrophils % 83.8 Lymphocytes % 8.7 Monocytes % 7.0 Eosinophils % 0.0 Basophils % 0.1 Absolute Neutrophils 14.42 H Absolute Lymphocytes 1.50 Absolute Monocytes 1.20 H Absolute Eosinophils 0.00 Absolute Basophils 0.02 PT 9.9 INR 1.0 APTT 22.9 VBG pH 7.33 VBG pCO2 40 VBG pO2 19 L VBG HCO3 21 L VBG Total CO2 20 L VBG O2 Saturation 30 L VBG Base Excess -5.0 L Sodium Potassium Chloride Carbon Dioxide Anion Gap BUN Creatinine Estimated GFR/1.73 m2 Glucose Calcium Magnesium Total Bilirubin Conjugated Bilirubin AST ALT Alkaline Phosphatase Ammonia Total Protein Albumin Lipase Salicylates Acetaminophen Ethyl Alcohol Last Vital Signs Temp 36 C L 11/13/18 05:05 Pulse 104 H 11/13/18 06:22 Resp 38 H 11/13/18 06:59 BP 100/68 11/13/18 05:05 Pulse Ox 94 L 11/13/18 06:22
[2018-11-13 07:52] LABS: HCO3 19 mmol/L (22-28); pCO2 36 mmHg (34-47); pH 7.34 (7.35-7.45); pO2 68 mmHg (83-108); sO2 94 % (94-98); tCO2 18 mmol/L (22-29)
[2018-11-13 07:54] LABS: BE -6.3 mmol/L (-3-3)
[2018-11-13 07:55] LABS: FIO2 60 %; FIO2L BIPAP L; Site Right Radial
[2018-11-13] MEDS: Normal Saline 1,000 ML 250 ML IV (08:00)
[2018-11-13 08:08] LABS: Bilirubin Negative (Negative); Blood Trace-lysed (Negative); Clarity Clear; Glucose Negative (Negative); Ketones Negative (Negative); Leukocyte Esterase Negative (Negative); Nitrite Negative (Negative); Urobilinogen 0.2 EU/dL (Up TO 0.2); pH 5.5 (5-8)
[2018-11-13 08:14] LABS: *AMPHETAMINES SCREEN URINE Negative (Negative); *BARBITURATES SCREEN URINE Negative (Negative); *BENZODIAZEPINES SCREEN URINE Negative (Negative); Cannabinoids THC Negative (Negative); Cocaine Screen,Urine Negative (Negative); METHADONE URINE SCREEN Negative (Negative); OPIATES URINE SCREEN POSITIVE (Negative)
[2018-11-13 08:17] LABS: Tricyclic Antidepressants POSITIVE (Negative)
--- NOTE | 2018-11-13 08:18 | NUR.NOTE ---
Nursing Note: Hospitalist in room during bedside echo. Pt more alert, moving all extremities. hernadez draining cyu. LS coarse rhonchi with rhales.per MD hold off administering narcan. pt able to state that she is in the ER at [facility].
[2018-11-13 08:23] LABS: Bacteria Rare HPF (Negative); C & S Indicated? No; Casts Negative LPF (Negative); Crystals Negative HPF (Negative); Epithelial Cells Few HPF (Negative); Mucus Negative (Negative); Other Cells Few Renal (Negative); RBC 0-2 (0-2); WBC 0-2 HPF (0-5)
[2018-11-13] MEDS: Pantoprazole 40 MG VIAL IVP (10:23)
[2018-11-13] MEDS: Enoxaparin 30 MG/0.3 ML SYR SC (10:24)
[2018-11-13] MEDS: Normal Saline Flush 10 ML SYR IVP ×3 (10:24→19:03)
[2018-11-13] MEDS: DOXYCYCLINE 100 MG in Normal Saline 100 ML IVPB (10:33)
[2018-11-13 10:35] LABS: Lactate 2.3 mmol/L (0.6-1.4)
[2018-11-13 10:47] LABS: Troponin I < 0.02 ng/mL (0.00-0.06)
[2018-11-13 10:51] LABS: NT-proBNP 1106 pg/mL
--- NOTE | 2018-11-13 11:05 | RESPIRATORY ---
This copy writer did a bipap check on this patient. Settings were changes by MD. New settings ipap 15/epap 8/70% fio2. Patient in not a retainer.
--- NOTE | 2018-11-13 12:10 | MERGE_ITS ---
*[facility]* *[facility]* [address] [place] [address] Date of study: 11/13/2018 Transthoracic Echocardiography M-mode, complete 2D, complete spectral Doppler, and color Doppler *STUDY CONCLUSIONS* Summary: 1. Left ventricle: The cavity size was normal. Wall thickness was increased in a pattern of mild LVH. Systolic function was normal. The estimated ejection fraction was 60-65%. Wall motion was normal; there were no regional wall motion abnormalities. 2. Right ventricle: The cavity size was at the upper limits of normal. Systolic function was low normal. 3. Ventricular septum: The contour showed diastolic flattening and systolic flattening. These changes are consistent with RV volume and RV pressure overload. 4. Left atrium: The atrium was mildly dilated. 5. Tricuspid valve: There was moderate-severe regurgitation. 6. Pulmonary arteries: Pulmonary systolic pressure was increased, in the range of 55mm Hg to 60mm Hg. *PATIENT PRESENTATION* Height: 154.9cm ((61in) ) S/D Pressure: 96 / 54 Weight: 82.6kg ((181.6lb) ) BSA: 1.92m^2 Test start time: 12:20 PM. Test stop time: 01:30 PM. PERFORMING Unknown PERFORMING [facility] ORDERING Marcial Barron REFERRING Marcial Barron Jeniane L DISTRIBUTOR OPERATOR RT Rossy (R)(CT), WILBER *PROCEDURE DATA* Procedure information: The patient was identified by two identifiers. This study was interpreted by [facility]. Pertinent images and digital data are archived for permanent storage and are available for subsequent review. No prior study was available for comparison. Study status: STAT. Transthoracic echocardiography. M-mode, complete 2D, complete spectral Doppler, and color Doppler. A Transthoracic Echocardiogram was performed. Scanning was performed from the parasternal, apical, subcostal, and suprasternal notch acoustic windows. Images were obtained using an [id number] cardiac ultrasound machine. Image quality was adequate. Study completion: The patient tolerated the procedure well. There were no complications. History: PMH: Acute respiratory failure eval LV RV function. *CARDIAC ANATOMY* Left ventricle: The cavity size was normal. Wall thickness was increased in a pattern of mild LVH. Systolic function was normal. The estimated ejection fraction was 60-65%. Wall motion was normal; there were no regional wall motion abnormalities. Findings consistent with diastolic dysfunction. There was no evidence of elevated ventricular filling pressure by Doppler parameters. Aortic valve: Trileaflet; mildly thickened leaflets. Mobility was not restricted. Doppler: Transvalvular velocity was within the normal range. There was no stenosis. There was no significant regurgitation. VTI ratio of LVOT to aortic valve: 0.76. Valve area (VTI): 2.2cm^2. Indexed valve area (VTI): 1.2cm^2/m^2. Peak velocity ratio of LVOT to aortic valve: 0.72. Valve area (Vmax): 2.1cm^2. Indexed valve area (Vmax): 1.1cm^2/m^2. Mean velocity ratio of LVOT to aortic valve: 0.79. Valve area (Vmean): 2.3cm^2. Indexed valve area (Vmean): 1.2cm^2/m^2. Mean gradient (S): 6.6mm Hg. Peak gradient (S): 11.3mm Hg. Aorta: Aortic root: The aortic root was normal in size. Ascending aorta: The ascending aorta was normal in size. Mitral valve: Structurally normal valve. Mobility was not restricted. Doppler: Transvalvular velocity was within the normal range. There was no evidence for stenosis. There was trivial regurgitation. Valve area by pressure half-time: 5cm^2. Indexed valve area by pressure half-time: 2.6cm^2/m^2. Peak gradient (D): 2.5mm Hg. Left atrium: The atrium was mildly dilated. Right ventricle: The cavity size was at the upper limits of normal. Systolic function was low normal. Ventricular septum: The contour showed diastolic flattening and systolic flattening. These changes are consistent with RV volume and RV pressure overload. Pulmonic valve: The pulmonary valve appears to be grossly normal. Doppler: Transvalvular velocity was within the normal range. There was no evidence for stenosis. There was trivial regurgitation. Tricuspid valve: Structurally normal valve. Doppler: Transvalvular velocity was within the normal range. There was no evidence for stenosis. There was moderate-severe regurgitation. Pulmonary artery: Poorly visualized. Pulmonary systolic pressure was increased, in the range of 55mm Hg to 60mm Hg. Right atrium: The atrium was normal in size. Pericardium: There was no pericardial effusion. Systemic veins: Inferior vena cava: Well visualized. The vessel was patent and normal in size. Patient on BiPAP therapy. Baseline ECG: Normal sinus rhythm. Measurements Left ventricle Value Reference LV ID, ED, PLAX 4.7 cm 3.5 - 6.0 LV ID, ES, PLAX 3.1 cm 2.1 - 4.0 LV PW thickness, ED, PLAX 1.1 cm LV end-diastolic volume, 1-p A2C 69 ml LV ejection fraction, 1-p A2C 67 % LV end-diastolic volume, 1-p A4C 75 ml LV ejection fraction, 1-p A4C 63 % LV e', lateral 0.114 m/sec LV E/e', lateral 7 LV e', medial 0.106 m/sec LV E/e', medial 7 LV e', average 0.11 m/sec LV E/e', average 7 Ventricular septum Value Reference IVS thickness, ED, PLAX 1.1 cm LVOT Value Reference LVOT ID, A-P 1.9 cm LVOT area 2.9 cm^2 LVOT peak velocity, S 1.21 m/sec LVOT mean velocity, S 0.96 m/sec LVOT VTI, S 23.5 cm LVOT peak gradient, S 5.8 mm Hg LVOT mean gradient, S 4 mm Hg Stroke volume (SV), LVOT DP 69 ml Stroke index (SV/bsa), LVOT DP 36 ml/m^2 Aortic valve Value Reference Aortic valve peak velocity, S 1.7 m/sec Aortic valve mean velocity, S 1.22 m/sec Aortic valve VTI, S 31.0 cm Aortic mean gradient, S 6.6 mm Hg Aortic peak gradient, S 11.3 mm Hg VTI ratio, LVOT/AV 0.76 Aortic valve area, VTI 2.2 cm^2 Velocity ratio, peak, LVOT/AV 0.72 Aortic valve area, peak velocity 2.1 cm^2 Velocity ratio, mean, LVOT/AV 0.79 Aortic valve area, mean velocity 2.3 cm^2 Aortic valve area/bsa, mean velocity 1.2 cm^2/m^2 Aorta Value Reference Aortic root ID, ED 3.7 cm Ascending aorta ID, A-P, S 3.7 cm Left atrium Value Reference LA ID, A-P, ES 3.0 cm LA ID/bsa, A-P 1.6 cm/m^2 <=2.2 LA area, ES, A4C 22.5 cm^2 8.8 - 23.4 LA area, ES, A2C 19 cm^2 LA volume/bsa, ES, 1-p A4C 40 ml/m^2 LA volume, ES, 2-p 62 ml LA volume/bsa, ES, 2-p 32 ml/m^2 LA/aortic root ratio 0.81 Mitral valve Value Reference Mitral E-wave peak velocity 0.79 m/sec Mitral A-wave peak velocity 0.59 m/sec Mitral deceleration time 153 ms 150 - 230 Mitral pressure half-time 44 ms Mitral peak gradient, D 2.5 mm Hg Mitral E/A ratio, peak 1.34 Mitral valve area, PHT, DP 5 cm^2 Pulmonary veins Value Reference Pulmonary vein peak velocity, S 0.54 m/sec Pulmonary vein peak velocity, D 0.5 m/sec Pulmonary vein velocity ratio, peak, 1.08 S/D Tricuspid valve Value Reference Tricuspid regurg peak velocity 3.7 m/sec Tricuspid peak RV-RA gradient 54.7 mm Hg Right atrium Value Reference RA area, ES, A4C 17.4 cm^2 8.3 - 19.5 Legend: (L) and (H) esperanza values outside specified reference range. I have personally reviewed the images and have reviewed and edited the reported findings. Electronically signed by Irineo Leo 11/13/2018 14:20
[2018-11-13 13:03] LABS: Lactate 1.9 mmol/L (0.6-1.4)
[2018-11-13 13:23] LABS: Anion Gap 11.8 mmol/L (3-11); BUN 23 mg/dL (7-18); CO2 20.2 mmol/L (21.0-32.0); CREATININE 1.36 mg/dL (0.55-1.02); Calcium 8.3 mg/dL (8.5-10.1); Chloride 104 mmol/L (98-107); Estimated GFR 40.22 (mL/min/1.73m2); Glucose 177 mg/dL (70-100); Potassium 4.3 mmol/L (3.5-5.1); Sodium 136 mmol/L (136-145)
[2018-11-13] MEDS: Normal Saline 250 ML 200 ML IV (13:24)
[2018-11-13] MEDS: methylPREDNISolone SUCC 125 MG VIAL 80 MG IVP (13:40)
[2018-11-13 14:42] LABS: Troponin I < 0.02 ng/mL (0.00-0.06)
[2018-11-13] MEDS: Midazolam 10 MG/10 ML 2 MG IVP (15:54)
[2018-11-13] MEDS: Rocuronium 50 MG/5 ML SYR IVP (16:00)
[2018-11-13] MEDS: Etomidate 20 MG/10 ML VIAL IVP (16:01)
[2018-11-13] MEDS: Succinylcholine 100 MG/5 ML SYR IVP ×2 (16:01→16:48)
[2018-11-13] MEDS: PROPOFOL 1,000 MG/100 ML BTL 40.32 MG IVPB ×2 (16:15→20:10)
[2018-11-13] MEDS: PROPOFOL 1,000 MG/100 ML BTL 84 MG (16:18)
--- NOTE | 2018-11-13 16:26 | DI.RAD_ITS ---
SYMPTOM/DIAGNOSIS: POST INTUBATION, POST CENTRAL LINE PLACEMENT PORTABLE AP CHEST AT 434 PM: There are diffuse bilateral intrapulmonary infiltrates as noted on CT. There is an endotracheal tube in good position and an NG tube is also noted in good position. The pulmonary findings as described may represent CHF, ARDS and/or multi focal pneumonia. PORTABLE AP CHEST AT 512 PM: Left subclavian line has been placed since the examination obtained earlier today and the tip of the left subclavian catheter overlies the superior vena cava. No pneumothorax is seen. Bilateral diffuse intrapulmonary predominantly interstitial infiltrates again noted. ET tube and NG tube in place.
[2018-11-13 16:39] LABS: HCO3 21 mmol/L (22-28); pCO2 54 mmHg (34-47); pO2 40 mmHg (83-108); sO2 63 % (94-98); tCO2 20 mmol/L (22-29)
[2018-11-13 16:40] LABS: BE -7.3 mmol/L (-3-3)
[2018-11-13] MEDS: Furosemide 40 MG/4 ML VIAL IVP (16:40)
[2018-11-13 16:41] LABS: Site Right Radial
[2018-11-13 16:42] LABS: FIO2 100 %
--- NOTE | 2018-11-13 16:54 | DI.VRAD_ITS ---
EXAM: XR Chest, 1 View EXAM DATE/TIME: 11/13/2018 4:27 PM CLINICAL HISTORY: 58 years old, female; Device placement; Other: Post intubation TECHNIQUE: Imaging protocol: XR of the chest, 1 view. COMPARISON: CR CHEST 2 VIEWS PA,LAT 11/10/2014 9:22 AM FINDINGS: Tubes, catheters and devices: Endotracheal tube present with tip 4 cm above the nicolasa. Nasogastric tube present with tip extending into the stomach. Lungs: Diffuse bilateral lung opacities, most prominent in the mid and lower lung zones, consistent with pulmonary edema and/or diffuse pneumonia. Pleural space: No pleural effusion or pneumothorax. Heart/Mediastinum: Unremarkable. No cardiomegaly. Bones/joints: Unremarkable. IMPRESSION: 1. Endotracheal and nasogastric tubes as described above. 2. Diffuse bilateral airspace disease. Dictated and Authenticated by: Kenrick Cisneros MD. Ordering:LOCO Castano MD
--- NOTE | 2018-11-13 16:58 | PDOC.ANES ---
Anesthesia Note At approximately 4 pm called to ER for elective intubation for female patient in respiratory failure. History obtained from Dr. Mccann. Patient becoming fatigued from day of bipap. Discussed with who understands the need. Patient per report from Dr. Morrell is not at baseline cognitively but seems to understand plan for sedation and intubation. Room prep done with equipmant/ meds/ RT present. [place] scope ready. Time out established everyone ready and understands roles. See RN notes for times and list of medications given. Rapid smooth intubation done with positive ETCo2 and bilateral lung sounds. Ascultation by surgeon who is present for possible central line. Patient slow to improvement in Sats, only briefly getting to 80. Tube secured and placed on vent. Poor sats. Stable BP. chest done with good tube position but now question ARDS. abg's pending. Dr. Morrell managing patient.
--- NOTE | 2018-11-13 17:13 | ANES_ITS ---
Anesthesia Note At approximately 4 pm called to ER for elective intubation for female patient in respiratory failure. History obtained from Dr. Mccann. Patient becoming fa tigued from day of bipap. Discussed with who understands the need. Patient per report from Dr. Morrell is not at baseline cognitively but seems to understand plan for sedation and intubation. Room prep done with equipmant/ meds/ RT present. [place] scope ready. Time out established everyone ready and understands roles. See RN notes for times and list of medications given. Rapid smooth intubation done with positive ETCo2 and bilateral lung sounds. Ascultation by surgeon who is present for possible central line. Patient slow to improvement in Sats, only briefly getting to 80. Tube secured and placed on vent. Poor sats. Stable BP. chest done with good tube position but now question ARDS. abg's pending. Dr. Morrell managing patient.
--- NOTE | 2018-11-13 17:23 | W.SURGCON ---
Date of service: 11/13/18 Time of Service: 17:24 Assessment and Plan (1) Acute kidney injury (nontraumatic): Current visit: Yes Status: Acute putting out good urine outptut at this time (2) COPD exacerbation: Current visit: Yes Status: Acute as below (3) Acute respiratory failure with hypoxia: Current visit: Yes Status: Acute intubated (4) ARDS (adult respiratory distress syndrome): Current visit: Yes Status: Acute pt diff to ventilate/oxygenate. results of echo and chest CT noted. appears to be fluid overloaded on CT she did respond to lasix 40mg and put out over 1000cc of urine (5) Poor venous access: Current visit: Yes Status: Acute central line placed. xray shows good position of central line as well as ET and NGT. no PTX. appears to be going in ards vs fluid overload >50% of the time spent with the patient today was spent in counseling regarding; medications, lifestyle modifications, wound care and/or coordinating care. 60 mins spent in acute care time. History of Present Illness Chief Complaint: pt is in the process of being intubated and cannot obtain Hx. per chart- s Narrative: pt is in the process of being intubated. cannot obtain hx from pt and taken from chart. Pt had flu-like illness last week- was on tamiflu. She came in to hosp early this am w/ SOB. she was started on broad spectrum abx. She was started on BiPAP but cont to have poor oxygenation and is being intubated. I was asked to see her for central line placement. Consults Consult date: 11/13/18 Requesting physician: Eyad Mccann Review of Systems Review of Systems Unobtainable due to endotracheal tube [facility] Medical History GERD (gastroesophageal reflux disease) (Chronic) Tobacco abuse (Chronic) Essential hypertension (Chronic) Hyperlipidemia (Chronic) Anxiety disorder (Chronic) Depression (Chronic) Acute exacerbation of chronic obstructive pulmonary disease (COPD) (Acute) Elevated serum creatinine (Acute) COPD (chronic obstructive pulmonary disease) (Chronic) Chronic back pain (Chronic) Chronic pain syndrome (Chronic) GERD (gastroesophageal reflux disease) (Chronic) Ganglion cyst (Chronic) Hip pain, bilateral (Chronic) Hyperlipidemia (Chronic) IBS (irritable bowel syndrome) (Chronic) Impaired fasting glucose (Chronic) Knee pain, right (Chronic) Non-alcoholic fatty liver disease (Chronic) Restrictive lung disease (Chronic) Sleep disturbance (Chronic) Syncope (Chronic) Tobacco use disorder (Chronic) Abdominal pain (Resolved) Surgical History Hx of cholecystectomy (Chronic) History of bursectomy (Resolved) History of cholecystectomy (Resolved) Social History Smoking/Tobacco Use Status: Current every day Alcohol Intake: never Drug use: Never Substance use type: does not use Do you feel safe in your relationship?: Yes Exam HENMT Head: normal to inspection Ears: hearing grossly normal bilaterally General nose exam: external nose normal Mouth: oral mucosae normal Teeth and gingiva: poor dentition and other (did have some gum trauma w/ intubation. no dental trauma ) Resp Auscultation: no rales, no rhonchi and no wheezes Other: diffuse wheeze throughout all will. sats in 70's Cardio Jugular venous pressure: no JVD Rate: tachycardic Rhythm: regular rhythm Other: tachy rhtymn GI Inspection: distended Skin Other: intact Extrem General: cyanosis Results Last Vital Signs Temp 36.3 C L 11/13/18 09:30 Pulse 95 H 11/13/18 15:22 Resp 41 H 11/13/18 15:01 BP 131/101 H 11/13/18 15:01 Pulse Ox 94 L 11/13/18 15:22 Labs : 11/13/18 05:15 11/13/18 12:46 Laboratory Results - last 24 hr 11/13/18 11/13/18 11/13/18 05:15 05:15 05:15 WBC RBC Hgb Hct MCV MCH MCHC RDW Plt Count MPV Immature Gran % Neutrophils % Lymphocytes % Monocytes % Eosinophils % Basophils % Absolute Neutrophils Absolute Lymphocytes Absolute Monocytes Absolute Eosinophils Absolute Basophils PT INR APTT Sample Site pCO2 pO2 O2 Saturation ABG pH ABG HCO3 ABG Total CO2 ABG Base Excess VBG pH VBG pCO2 VBG pO2 VBG HCO3 VBG Total CO2 VBG O2 Saturation VBG Base Excess Oxygen Liter Flow FiO2 Sodium 135 L Potassium 4.1 Chloride 98 Carbon Dioxide 19.7 L Anion Gap 17.3 H BUN 27 H Creatinine 1.92 H Estimated GFR/1.73 m2 27.02 Glucose 163 H Lactate Calcium 9.2 Magnesium 1.3 L Total Bilirubin 0.5 Conjugated Bilirubin 0.14 AST 25 ALT 28 Alkaline Phosphatase 99 Ammonia < 10 L Troponin I NT-Pro-B Natriuret Pep Total Protein 7.5 Albumin 3.1 L Lipase 77 Urine Color Urine Clarity Urine pH Ur Specific [place] Urine Protein Urine Ketones Urine Blood Urine Nitrite Urine Bilirubin Urine Urobilinogen Ur Leukocyte Esterase Urine RBC Urine WBC Ur Epithelial Cells Urine Crystals Urine Bacteria Urine Casts Urine Mucus Urine Other Ur Culture Indicated? Urine Glucose Salicylates 3.7 Urine Opiates Screen Urine Methadone Screen Acetaminophen < 2 L Ur Barbiturates Screen Ur Tricyclics Screen Ur Amphetamines Screen U Benzodiazepines Scrn Urine Cocaine Screen Ur THC Screen Ethyl Alcohol < 3.0 11/13/18 11/13/18 11/13/18 05:15 05:15 05:37 WBC 17.21 H RBC 4.04 Hgb 11.1 L Hct 34.1 L MCV 84.4 MCH 27.5 MCHC 32.6 RDW 16.2 H Plt Count 278 MPV 11.1 H Immature Gran % 0.4 Neutrophils % 83.8 Lymphocytes % 8.7 Monocytes % 7.0 Eosinophils % 0.0 Basophils % 0.1 Absolute Neutrophils 14.42 H Absolute Lymphocytes 1.50 Absolute Monocytes 1.20 H Absolute Eosinophils 0.00 Absolute Basophils 0.02 PT 9.9 INR 1.0 APTT 22.9 Sample Site pCO2 pO2 O2 Saturation ABG pH ABG HCO3 ABG Total CO2 ABG Base Excess VBG pH 7.33 VBG pCO2 40 VBG pO2 19 L VBG HCO3 21 L VBG Total CO2 20 L VBG O2 Saturation 30 L VBG Base Excess -5.0 L Oxygen Liter Flow FiO2 Sodium Potassium Chloride Carbon Dioxide Anion Gap BUN Creatinine Estimated GFR/1.73 m2 Glucose Lactate Calcium Magnesium Total Bilirubin Conjugated Bilirubin AST ALT Alkaline Phosphatase Ammonia Troponin I NT-Pro-B Natriuret Pep Total Protein Albumin Lipase Urine Color Urine Clarity Urine pH Ur Specific [place] Urine Protein Urine Ketones Urine Blood Urine Nitrite Urine Bilirubin Urine Urobilinogen Ur Leukocyte Esterase Urine RBC Urine WBC Ur Epithelial Cells Urine Crystals Urine Bacteria Urine Casts Urine Mucus Urine Other Ur Culture Indicated? Urine Glucose Salicylates Urine Opiates Screen Urine Methadone Screen Acetaminophen Ur Barbiturates Screen Ur Tricyclics Screen Ur Amphetamines Screen U Benzodiazepines Scrn Urine Cocaine Screen Ur THC Screen Ethyl Alcohol 11/13/18 11/13/18 11/13/18 07:47 07:47 07:48 WBC RBC Hgb Hct MCV MCH MCHC RDW Plt Count MPV Immature Gran % Neutrophils % Lymphocytes % Monocytes % Eosinophils % Basophils % Absolute Neutrophils Absolute Lymphocytes Absolute Monocytes Absolute Eosinophils Absolute Basophils PT INR APTT Sample Site Right radial pCO2 36 pO2 68 L O2 Saturation 94 ABG pH 7.34 L ABG HCO3 19 L ABG Total CO2 18 L ABG Base Excess -6.3 L VBG pH VBG pCO2 VBG pO2 VBG HCO3 VBG Total CO2 VBG O2 Saturation VBG Base Excess Oxygen Liter Flow Bipap FiO2 60 Sodium Potassium Chloride Carbon Dioxide Anion Gap BUN Creatinine Estimated GFR/1.73 m2 Glucose Lactate Calcium Magnesium Total Bilirubin Conjugated Bilirubin AST ALT Alkaline Phosphatase Ammonia Troponin I NT-Pro-B Natriuret Pep Total Protein Albumin Lipase Urine Color Yellow Urine Clarity Clear Urine pH 5.5 Ur Specific [place] 1.010 Urine Protein 30 H Urine Ketones Negative Urine Blood Trace-lysed H Urine Nitrite Negative Urine Bilirubin Negative Urine Urobilinogen 0.2 Ur Leukocyte Esterase Negative Urine RBC 0-2 Urine WBC 0-2 Ur Epithelial Cells Few Urine Crystals Negative Urine Bacteria Rare Urine Casts Negative Urine Mucus Negative Urine Other Few renal Ur Culture Indicated? No Urine Glucose Negative Salicylates Urine Opiates Screen Positive Urine Methadone Screen Negative Acetaminophen Ur Barbiturates Screen Negative Ur Tricyclics Screen Positive Ur Amphetamines Screen Negative U Benzodiazepines Scrn Negative Urine Cocaine Screen Negative Ur THC Screen Negative Ethyl Alcohol 11/13/18 11/13/18 11/13/18 10:08 10:08 10:08 WBC RBC Hgb Hct MCV MCH MCHC RDW Plt Count MPV Immature Gran % Neutrophils % Lymphocytes % Monocytes % Eosinophils % Basophils % Absolute Neutrophils Absolute Lymphocytes Absolute Monocytes Absolute Eosinophils Absolute Basophils PT INR APTT Sample Site pCO2 pO2 O2 Saturation ABG pH ABG HCO3 ABG Total CO2 ABG Base Excess VBG pH VBG pCO2 VBG pO2 VBG HCO3 VBG Total CO2 VBG O2 Saturation VBG Base Excess Oxygen Liter Flow FiO2 Sodium Potassium Chloride Carbon Dioxide Anion Gap BUN Creatinine Estimated GFR/1.73 m2 Glucose Lactate 2.3 H* Calcium Magnesium Total Bilirubin Conjugated Bilirubin AST ALT Alkaline Phosphatase Ammonia Troponin I < 0.02 NT-Pro-B Natriuret Pep 1106 H Total Protein Albumin Lipase Urine Color Urine Clarity Urine pH Ur Specific [place] Urine Protein Urine Ketones Urine Blood Urine Nitrite Urine Bilirubin Urine Urobilinogen Ur Leukocyte Esterase Urine RBC Urine WBC Ur Epithelial Cells Urine Crystals Urine Bacteria Urine Casts Urine Mucus Urine Other Ur Culture Indicated? Urine Glucose Salicylates Urine Opiates Screen Urine Methadone Screen Acetaminophen Ur Barbiturates Screen Ur Tricyclics Screen Ur Amphetamines Screen U Benzodiazepines Scrn Urine Cocaine Screen Ur THC Screen Ethyl Alcohol 11/13/18 11/13/18 11/13/18 12:46 12:46 14:15 WBC RBC Hgb Hct MCV MCH MCHC RDW Plt Count MPV Immature Gran % Neutrophils % Lymphocytes % Monocytes % Eosinophils % Basophils % Absolute Neutrophils Absolute Lymphocytes Absolute Monocytes Absolute Eosinophils Absolute Basophils PT INR APTT Sample Site pCO2 pO2 O2 Saturation ABG pH ABG HCO3 ABG Total CO2 ABG Base Excess VBG pH VBG pCO2 VBG pO2 VBG HCO3 VBG Total CO2 VBG O2 Saturation VBG Base Excess Oxygen Liter Flow FiO2 Sodium 136 Potassium 4.3 Chloride 104 Carbon Dioxide 20.2 L Anion Gap 11.8 H BUN 23 H Creatinine 1.36 H Estimated GFR/1.73 m2 40.22 Glucose 177 H Lactate 1.9 H Calcium 8.3 L Magnesium Total Bilirubin Conjugated Bilirubin AST ALT Alkaline Phosphatase Ammonia Troponin I < 0.02 NT-Pro-B Natriuret Pep Total Protein Albumin Lipase Urine Color Urine Clarity Urine pH Ur Specific [place] Urine Protein Urine Ketones Urine Blood Urine Nitrite Urine Bilirubin Urine Urobilinogen Ur Leukocyte Esterase Urine RBC Urine WBC Ur Epithelial Cells Urine Crystals Urine Bacteria Urine Casts Urine Mucus Urine Other Ur Culture Indicated? Urine Glucose Salicylates Urine Opiates Screen Urine Methadone Screen Acetaminophen Ur Barbiturates Screen Ur Tricyclics Screen Ur Amphetamines Screen U Benzodiazepines Scrn Urine Cocaine Screen Ur THC Screen Ethyl Alcohol 11/13/18 11/13/18 15:30 16:30 WBC RBC Hgb Hct MCV MCH MCHC RDW Plt Count MPV Immature Gran % Neutrophils % Lymphocytes % Monocytes % Eosinophils % Basophils % Absolute Neutrophils Absolute Lymphocytes Absolute Monocytes Absolute Eosinophils Absolute Basophils PT INR APTT Sample Site Right radial pCO2 54 H pO2 40 L O2 Saturation 63 L ABG pH 7.20 L ABG HCO3 21 L ABG Total CO2 20 L ABG Base Excess -7.3 L VBG pH VBG pCO2 VBG pO2 VBG HCO3 VBG Total CO2 VBG O2 Saturation VBG Base Excess Oxygen Liter Flow FiO2 100 Sodium Potassium Chloride Carbon Dioxide Anion Gap BUN Creatinine Estimated GFR/1.73 m2 Glucose Lactate 2.0 H Calcium Magnesium Total Bilirubin Conjugated Bilirubin AST ALT Alkaline Phosphatase Ammonia Troponin I NT-Pro-B Natriuret Pep Total Protein Albumin Lipase Urine Color Urine Clarity Urine pH Ur Specific [place] Urine Protein Urine Ketones Urine Blood Urine Nitrite Urine Bilirubin Urine Urobilinogen Ur Leukocyte Esterase Urine RBC Urine WBC Ur Epithelial Cells Urine Crystals Urine Bacteria Urine Casts Urine Mucus Urine Other Ur Culture Indicated? Urine Glucose Salicylates Urine Opiates Screen Urine Methadone Screen Acetaminophen Ur Barbiturates Screen Ur Tricyclics Screen Ur Amphetamines Screen U Benzodiazepines Scrn Urine Cocaine Screen Ur THC Screen Ethyl Alcohol Procedures Central Line Placement Left SC: Time out performed: Yes Patient placed on monitor/pulse ox: Yes MD prep: mask, gown and gloves Central line prep: Chlorhexidine scrub Local anesthesia used: lidocaine 1% Amount of anesthesia used (ml): 5 Ultrasound used for placement: No Central line lumen inserted: triple Post procedure: sutured in place Post procedure x-ray: tip of catheter in good position and no pneumothorax seen Patient tolerated procedure: well Complications: none
[2018-11-13 17:56] LABS: HCO3 23 mmol/L (22-28); pO2 81 mmHg (83-108); sO2 91 % (94-98); tCO2 23 mmol/L (22-29)
[2018-11-13 18:00] LABS: BE -7.4 mmol/L (-3-3); FIO2L Vent L; Site Left Radial; pCO2 80 mmHg (34-47); pH 7.07 (7.35-7.45)
[2018-11-13 18:01] LABS: FIO2 90 %
--- NOTE | 2018-11-13 18:03 | DI.VRAD_ITS ---
EXAM: XR Chest, 1 View EXAM DATE/TIME: 11/13/2018 5:09 PM CLINICAL HISTORY: 58 years old, female; Device placement; Other: Post central line placement TECHNIQUE: Imaging protocol: XR of the chest, 1 view. COMPARISON: SC XR PORTABLE CHEST AP 11/13/2018 4:34 PM FINDINGS: Tubes, catheters and devices: Endotracheal tube terminates 5 cm above the [place]. Enteric tube in place. Left subclavian central venous access line, tip projecting over the lower SVC. Lungs: Redemonstration of diffuse bilateral airspace opacities. Pleural space: No pleural effusion or pneumothorax. Heart/Mediastinum: Cardiac and mediastinal silhouettes are unremarkable. Bones/joints: No acute osseus lesion or fracture. IMPRESSION: 1. Lines and tubes, as above. 2. Redemonstration of diffuse bilateral airspace opacities, which could represent combination of pulmonary edema, multifocal pneumonia, and/or ARDS. Dictated and Authenticated by: Vijay Diggs MD. Ordering:LOCO Castano MD
[2018-11-13 18:10] LABS: Troponin I < 0.02 ng/mL (0.00-0.06)
--- NOTE | 2018-11-13 18:11 | DSE_ITS ---
Date of service: 11/13/18 Time of Service: 17:47 DS: Diagnosis Discharge Diagnosis (1) Acute kidney injury (nontraumatic): Status: Acute (2) COPD exacerbation: Status: Acute (3) Acute respiratory failure with hypoxia: Status: Acute (4) ARDS (adult respiratory distress syndrome): Status: Acute (5) Poor venous access: Status: Acute Discharge Plan Disposition Patient Disposition: [facility] Condition: Poor Discharge Details Reason For Visit: Acute Hypoxic Respiratory Failure Admit Date/Time: 11/13/18 06:37 Admit Provider: Haroldo Barron Attending Provider: Haroldo Barron Primary Care Provider: [facility] Hospital Course Hospital Course: For Details of Patient's initial admission, please see detailed H&P from earlier today by Dr. Barron. In short, 58 year old woman with a prior history of COPD, tobacco use, and obesity, recently diagnosed and treated for Influenza (October 30) with Oseltamivir, as well as a concurrent COPD exacerbation with Levofloxacin and a course of Prednisone via [facility] Emergency Department. Mrs. Mclaughlin returned to the ED early this morning with a reported altered mental status. She was in her normal state at 9pm last night when her went to bed, but was found this morning somnolent and altered. In the ED she was found to be hypoxic, with oxygen saturation in the 70's on room air. CT of her head was negative, and CTA of the chest was significant for diffuse alveolar and interstitial opacities consistent with either atypical infection or interstitial pulmonary edema. She was noted to have ANGE as well as a leukocytosis by labs. She was admitted and initiated on broad spectrum antibiotics with Vancomycin (post-influenza), Pip-Tazo, and Doxycycline for atypical coverage. Unfortunately Mrs. Mclaughlin failed to improve through the day. She required continuous BiPAP, and remained somewhat altered from a mental status standpoint. Consideration was given for potential non-cardiogenic pulmonary edema given the CT findings, and an ECHO was checked by the admitting physician and confirmed a normal LVEF without significant valvulopathy. Note was made of elevated PA pressures and evidence of RV Volume and pressure overload. Decision was made to intubate patient electively. Stat CXR was also obtained showing diffuse bilateral airway disease, clinically appearing to favor ARDS. Following a successful intubation she was noted to have continued worsening of her oxygenation, dropping to as low as 58%. A lot Tidal Volume Mechanical ventilation strategy was pursued, and following aggressive bagging by RT Mrs. Mclaughlin's oxygenation improved to the high 80 to low 90's. She was sedated using propofol. Central Line access was obtained via surgery, and patient has a left SC TLC in place, as well as 2 peripheral IVs. A hernadez catheter was also placed. She also received 40 of IV Lasix with approximately 1 L of output. Following discussion with [facility] she was accepted in transfer for a higher level of care. Current Inpatient Medications: Duonebs Lovenox 30mg Solumedrol 60mg IV Q8 Zosyn Vancomycin Doxycyclin Propofol gtt Home medications as below. Home Meds and New Rx's Prescriptions: Continued ropinirole 2 mg tablet 2 mg PO QHS RF: 0 meloxicam 7.5 mg tablet 7.5 mg PO BID RF: 0 promethazine 25 mg tablet 25 mg PO Q6H PRNRF: 0 diphenoxylate-atropine 2.5-0.025 mg tablet 2 tab PO QID PRNRF: 0 furosemide [Lasix] 20 mg tablet 40 mg PO DAILY RF: 0 bupropion HCl [Wellbutrin SR] 200 mg tablet sustained-release 12 hr 200 mg PO BID RF: 0 ipratropium bromide 42 mcg (0.06 %) spray,non-aerosol 2 spray JOHNY TID RF: 0 albuterol sulfate [Ventolin HFA] 90 mcg/actuation HFA aerosol inhaler 2 puff IH Q6H PRNRF: 0 guaifenesin 200 mg tablet 600 mg PO BID RF: 0 oxycodone 20 mg tablet 20 mg PO BID RF: 0 Oxygen Tank .ROUTE .MEDSUPPLY Qty: 1 RF: 0 montelukast [Singulair] 10 MG tablet 10 mg PO HS RF: 0 rosuvastatin [Crestor] 10 MG tablet 10 mg PO HS RF: 0 loratadine [Claritin Liqui-Gel] 10 MG capsule 10 mg PO DAILY RF: 0 hydrochlorothiazide 25 MG tablet 25 mg PO DAILY RF: 0 Narcan 4 MG spray,non-aerosol 4 mg NS PRN Qty: 2 RF: 0 baclofen 10 mg tablet 10 mg PO TID PRNRF: 0 Dexilant 60 MG capsule,biphase delayed releas 60 mg PO DAILY RF: 0 gabapentin [Neurontin] 300 MG capsule 900 mg PO TID RF: 0 fluticasone propionate 16 GM spray,suspension 2 drp Intranasal DAILY RF: 0 citalopram 40 mg tablet 40 mg PO HS RF: 0 Symbicort 10.2 GM HFA aerosol inhaler 2 inh Inhalation BID RF: 0 lisinopril 10 MG tablet 10 mg PO DAILY RF: 0 Viberzi 100 MG tablet 100 mg PO BID RF: 0 Robitussin Cough and Cold CF 118 ML liquid 118 ml PO PRN PRNRF: 0 acetaminophen [Acetaminophen Extra Strength] 500 MG tablet 1,000 mg PO Q8H PRN PRNQty: 100 RF: 0 oxycodone 10 mg tablet 10 mg PO BID RF: 0 acetaminophen [Mapap Extra Strength] 500 MG tablet 1,000 mg PO QID PRNQty: 90 RF: 3 nystatin 100,000 UNIT/ML suspension 500,000 unit PO QID Qty: 200 RF: 1 prochlorperazine maleate [Compazine] 10 mg tablet 10 mg PO TID PRN (Reason: nausea and vomiting) Qty: 30 RF: 0 Discharge Instructions Activity:: Bedrest Diet:: NPO Discharge Orders Discharge Orders: Discharge Order (Routine); Ordered 11/13/18 Ordered By: Eyad Mccann Exam Narrative Exam Narrative: GEN: Patient is sedated, Intubated, Mechanically ventilated Neck: Supple CV: Regular, Tachycardic Pulmonary: Diffuse crackles with mild diffuse wheezing Abdomen: +BS, soft, NT, ND Vascular: No LE Edema DS: Data Vitals/I&O Vitals and I&O: Vital Signs Temperature 36.3 C L 11/13/18 09:30 Temperature Source Temporal Artery Scan 11/13/18 09:30 Pulse 95 H 11/13/18 15:22 Pulse 102 H 11/13/18 15:01 Respiratory Rate 41 H 11/13/18 15:01 Respiratory Effort Incrsd Work of Breathing 11/13/18 09:30 Respiratory Depth Normal 11/13/18 09:30 Respiratory Pattern Tachypnea 11/13/18 09:30 Blood Pressure 131/101 H 11/13/18 15:01 Blood Pressure Mean 108 11/13/18 15:01 Blood Pressure Position Supine 11/13/18 09:30 Pulse Oximetry 94 L 11/13/18 15:22 Respiratory End-tidal CO2 19 11/13/18 15:01 Oxygen Delivery Method Bi-pap 11/13/18 09:30 Oxygen Flow Rate 0 11/13/18 05:05 Fraction of Inspired Oxygen (FIO2) 80 11/13/18 15:22 Pain Level 0 11/13/18 09:30 Intake & Output 11/12/18 11/13/18 11/13/18 23:59 11:59 23:59 Intake Total 2229.167 / 2530.000 300.833 / 2530.000 Output Total 250 / 250 Balance 2229.167 / 2280.000 50.833 / 2280.000 Weight 84 kg Intake: IV 2229.167 / 2500.000 270.833 / 2500.000 Oral 30 / 30 Output: Urine 250 / 250 Other: Urine Color Yellow Yellow Urine Appearance Clear Clear Completed studies during hospitalization [Text1]: EXAM: CT Head Without Contrast EXAM DATE/TIME: 11/13/2018 5:11 AM CLINICAL HISTORY: 58 years old, female; Signs and symptoms; Alteration of consciousness; Transient alteration of awareness TECHNIQUE: Imaging protocol: Axial computed tomography images of the head/brain without contrast. Coronal and sagittal reformatted images were created and reviewed. Radiation optimization: All CT scans at this facility use at least one of these dose optimization techniques: automated exposure control; mA and/or kV adjustment per patient size (includes targeted exams where dose is matched to clinical indication); or iterative reconstruction. COMPARISON: No relevant prior studies available. FINDINGS: Brain: Typical for age. No hemorrhage. No evidence of acute infarct. No mass. Ventricles: No ventriculomegaly. Bones/joints: Unremarkable. Sinuses: No sinus fluid. Mastoid air cells: Unremarkable. Soft tissues: Unremarkable. IMPRESSION: No acute intracranial abnormality. --------- EXAM: CT Angiography Chest With Contrast EXAM DATE/TIME: 11/13/2018 5:18 AM CLINICAL HISTORY: 58 years old, female; Signs and symptoms; Shortness of breath and other: Hypoxia TECHNIQUE: Imaging protocol: Axial computed tomographic angiography images of the chest with intravenous contrast using CT angiography protocol. Coronal and sagittal reformatted images were created and reviewed. 3D rendering: MIP reconstructed images were created and reviewed. Radiation optimization: All CT scans at this facility use at least one of these dose optimization techniques: automated exposure control; mA and/or kV adjustment per patient size (includes targeted exams where dose is matched to clinical indication); or iterative reconstruction. Contrast material: [id number] Contrast volume: 70 ml Contrast route: iv COMPARISON: No relevant prior studies available. FINDINGS: Pulmonary arteries: Unremarkable. No obvious pulmonary emboli. Aorta: Unremarkable. No aortic aneurysm. No aortic dissection. Lungs: Diffuse alveolar and interstitial lung opacities. Multiple calcified granulomas in the lungs. Pleural space: Unremarkable. No pneumothorax. No pleural effusion. Heart: Unremarkable. No pericardial effusion. No obvious heart strain. Adrenals: 2.8 cm left adrenal nodule. Lymph nodes: Unremarkable. No enlarged lymph nodes. Bones/joints: Unremarkable. No acute fracture. Soft tissues: Unremarkable. Other findings: Limited motion degraded study. IMPRESSION: 1. Diffuse alveolar and interstitial lung opacities could be severe alveolar and interstitial pulmonary edema or atypical infection. 2. 2.8 cm left adrenal nodule. If there are no old studies to document stability then CT or MRI adrenal mass protocol could be performed. -------- Exam(s) a US:US echocardiogram Date of study: 11/13/2018 Transthoracic Echocardiography M-mode, complete 2D, complete spectral Doppler, and color Doppler *STUDY CONCLUSIONS* Summary: 1. Left ventricle: The cavity size was normal. Wall thickness was increased in a pattern of mild LVH. Systolic function was normal. The estimated ejection fraction was 60-65%. Wall motion was normal; there were no regional wall motion abnormalities. 2. Right ventricle: The cavity size was at the upper limits of normal. Systolic function was low normal. 3. Ventricular septum: The contour showed diastolic flattening and systolic flattening. These changes are consistent with RV volume and RV pressure overload. 4. Left atrium: The atrium was mildly dilated. 5. Tricuspid valve: There was moderate-severe regurgitation. 6. Pulmonary arteries: Pulmonary systolic pressure was increased, in the range of 55mm Hg to 60mm Hg. --------- EXAM: XR Chest, 1 View EXAM DATE/TIME: 11/13/2018 4:27 PM CLINICAL HISTORY: 58 years old, female; Device placement; Other: Post intubation TECHNIQUE: Imaging protocol: XR of the chest, 1 view. COMPARISON: CR CHEST 2 VIEWS PA,LAT 11/10/2014 9:22 AM FINDINGS: Tubes, catheters and devices: Endotracheal tube present with tip 4 cm above the nicolasa. Nasogastric tube present with tip extending into the stomach. Lungs: Diffuse bilateral lung opacities, most prominent in the mid and lower lung zones, consistent with pulmonary edema and/or diffuse pneumonia. Pleural space: No pleural effusion or pneumothorax. Heart/Mediastinum: Unremarkable. No cardiomegaly. Bones/joints: Unremarkable. IMPRESSION: 1. Endotracheal and nasogastric tubes as described above. 2. Diffuse bilateral airspace disease. --------- Labs on day of discharge: Labs from last 24 hours 11/13/18 11/13/18 11/13/18 17:41 17:30 16:30 WBC RBC Hgb Hct MCV MCH MCHC RDW Plt Count MPV Immature Gran % Neutrophils % Lymphocytes % Monocytes % Eosinophils % Basophils % Absolute Neutrophils Absolute Lymphocytes Absolute Monocytes Absolute Eosinophils Absolute Basophils PT INR APTT Sample Site Pending Right radial pCO2 Pending 54 H pO2 Pending 40 L O2 Saturation Pending 63 L ABG pH Pending 7.20 L ABG HCO3 Pending 21 L ABG Total CO2 Pending 20 L ABG Base Excess Pending -7.3 L VBG pH VBG pCO2 VBG pO2 VBG HCO3 VBG Total CO2 VBG O2 Saturation VBG Base Excess Oxygen Liter Flow FiO2 100 Sodium Potassium Chloride Carbon Dioxide Anion Gap BUN Creatinine Estimated GFR/1.73 m2 Glucose Lactate Calcium Magnesium Total Bilirubin Conjugated Bilirubin AST ALT Alkaline Phosphatase Ammonia Troponin I Pending NT-Pro-B Natriuret Pep Total Protein Albumin Lipase Urine Color Urine Clarity Urine pH Ur Specific [place] Urine Protein Urine Ketones Urine Blood Urine Nitrite Urine Bilirubin Urine Urobilinogen Ur Leukocyte Esterase Urine RBC Urine WBC Ur Epithelial Cells Urine Crystals Urine Bacteria Urine Casts Urine Mucus Urine Other Ur Culture Indicated? Urine Glucose Salicylates Urine Opiates Screen Urine Methadone Screen Acetaminophen Ur Barbiturates Screen Ur Tricyclics Screen Ur Amphetamines Screen U Benzodiazepines Scrn Urine Cocaine Screen Ur THC Screen Ethyl Alcohol Legionella Source Legionella Reprt Status Legionella Final Result M. pneumoniae Source M. pneumoniae (PCR) Ur Strep pneumoniae Ag 04/04/19 04/04/19 04/04/19 15:30 14:15 12:46 WBC RBC Hgb Hct MCV MCH MCHC RDW Plt Count MPV Immature Gran % Neutrophils % Lymphocytes % Monocytes % Eosinophils % Basophils % Absolute Neutrophils Absolute Lymphocytes Absolute Monocytes Absolute Eosinophils Absolute Basophils PT INR APTT Sample Site pCO2 pO2 O2 Saturation ABG pH ABG HCO3 ABG Total CO2 ABG Base Excess VBG pH VBG pCO2 VBG pO2 VBG HCO3 VBG Total CO2 VBG O2 Saturation VBG Base Excess Oxygen Liter Flow FiO2 Sodium 136 Potassium 4.3 Chloride 104 Carbon Dioxide 20.2 L Anion Gap 11.8 H BUN 23 H Creatinine 1.36 H Estimated GFR/1.73 m2 40.22 Glucose 177 H Lactate 2.0 H Calcium 8.3 L Magnesium Total Bilirubin Conjugated Bilirubin AST ALT Alkaline Phosphatase Ammonia Troponin I < 0.02 NT-Pro-B Natriuret Pep Total Protein Albumin Lipase Urine Color Urine Clarity Urine pH Ur Specific [place] Urine Protein Urine Ketones Urine Blood Urine Nitrite Urine Bilirubin Urine Urobilinogen Ur Leukocyte Esterase Urine RBC Urine WBC Ur Epithelial Cells Urine Crystals Urine Bacteria Urine Casts Urine Mucus Urine Other Ur Culture Indicated? Urine Glucose Salicylates Urine Opiates Screen Urine Methadone Screen Acetaminophen Ur Barbiturates Screen Ur Tricyclics Screen Ur Amphetamines Screen U Benzodiazepines Scrn Urine Cocaine Screen Ur THC Screen Ethyl Alcohol Legionella Source Legionella Reprt Status Legionella Final Result M. pneumoniae Source M. pneumoniae (PCR) Ur Strep pneumoniae Ag 11/13/18 11/13/18 11/13/18 12:46 10:32 10:08 WBC RBC Hgb Hct MCV MCH MCHC RDW Plt Count MPV Immature Gran % Neutrophils % Lymphocytes % Monocytes % Eosinophils % Basophils % Absolute Neutrophils Absolute Lymphocytes Absolute Monocytes Absolute Eosinophils Absolute Basophils PT INR APTT Sample Site pCO2 pO2 O2 Saturation ABG pH ABG HCO3 ABG Total CO2 ABG Base Excess VBG pH VBG pCO2 VBG pO2 VBG HCO3 VBG Total CO2 VBG O2 Saturation VBG Base Excess Oxygen Liter Flow FiO2 Sodium Potassium Chloride Carbon Dioxide Anion Gap BUN Creatinine Estimated GFR/1.73 m2 Glucose Lactate 1.9 H Calcium Magnesium Total Bilirubin Conjugated Bilirubin AST ALT Alkaline Phosphatase Ammonia Troponin I NT-Pro-B Natriuret Pep 1106 H Total Protein Albumin Lipase Urine Color Urine Clarity Urine pH Ur Specific [place] Urine Protein Urine Ketones Urine Blood Urine Nitrite Urine Bilirubin Urine Urobilinogen Ur Leukocyte Esterase Urine RBC Urine WBC Ur Epithelial Cells Urine Crystals Urine Bacteria Urine Casts Urine Mucus Urine Other Ur Culture Indicated? Urine Glucose Salicylates Urine Opiates Screen Urine Methadone Screen Acetaminophen Ur Barbiturates Screen Ur Tricyclics Screen Ur Amphetamines Screen U Benzodiazepines Scrn Urine Cocaine Screen Ur THC Screen Ethyl Alcohol Legionella Source Legionella Reprt Status Legionella Final Result M. pneumoniae Source Pending M. pneumoniae (PCR) Pending Ur Strep pneumoniae Ag 11/13/18 11/13/18 11/13/18 10:08 10:08 07:48 WBC RBC Hgb Hct MCV MCH MCHC RDW Plt Count MPV Immature Gran % Neutrophils % Lymphocytes % Monocytes % Eosinophils % Basophils % Absolute Neutrophils Absolute Lymphocytes Absolute Monocytes Absolute Eosinophils Absolute Basophils PT INR APTT Sample Site Right radial pCO2 36 pO2 68 L O2 Saturation 94 ABG pH 7.34 L ABG HCO3 19 L ABG Total CO2 18 L ABG Base Excess -6.3 L VBG pH VBG pCO2 VBG pO2 VBG HCO3 VBG Total CO2 VBG O2 Saturation VBG Base Excess Oxygen Liter Flow Bipap FiO2 60 Sodium Potassium Chloride Carbon Dioxide Anion Gap BUN Creatinine Estimated GFR/1.73 m2 Glucose Lactate 2.3 H* Calcium Magnesium Total Bilirubin Conjugated Bilirubin AST ALT Alkaline Phosphatase Ammonia Troponin I < 0.02 NT-Pro-B Natriuret Pep Total Protein Albumin Lipase Urine Color Urine Clarity Urine pH Ur Specific [place] Urine Protein Urine Ketones Urine Blood Urine Nitrite Urine Bilirubin Urine Urobilinogen Ur Leukocyte Esterase Urine RBC Urine WBC Ur Epithelial Cells Urine Crystals Urine Bacteria Urine Casts Urine Mucus Urine Other Ur Culture Indicated? Urine Glucose Salicylates Urine Opiates Screen Urine Methadone Screen Acetaminophen Ur Barbiturates Screen Ur Tricyclics Screen Ur Amphetamines Screen U Benzodiazepines Scrn Urine Cocaine Screen Ur THC Screen Ethyl Alcohol Legionella Source Legionella Reprt Status Legionella Final Result M. pneumoniae Source M. pneumoniae (PCR) Ur Strep pneumoniae Ag 11/13/18 11/13/18 11/13/18 07:47 07:47 07:47 WBC RBC Hgb Hct MCV MCH MCHC RDW Plt Count MPV Immature Gran % Neutrophils % Lymphocytes % Monocytes % Eosinophils % Basophils % Absolute Neutrophils Absolute Lymphocytes Absolute Monocytes Absolute Eosinophils Absolute Basophils PT INR APTT Sample Site pCO2 pO2 O2 Saturation ABG pH ABG HCO3 ABG Total CO2 ABG Base Excess VBG pH VBG pCO2 VBG pO2 VBG HCO3 VBG Total CO2 VBG O2 Saturation VBG Base Excess Oxygen Liter Flow FiO2 Sodium Potassium Chloride Carbon Dioxide Anion Gap BUN Creatinine Estimated GFR/1.73 m2 Glucose Lactate Calcium Magnesium Total Bilirubin Conjugated Bilirubin AST ALT Alkaline Phosphatase Ammonia Troponin I NT-Pro-B Natriuret Pep Total Protein Albumin Lipase Urine Color Yellow Urine Clarity Clear Urine pH 5.5 Ur Specific [place] 1.010 Urine Protein 30 H Urine Ketones Negative Urine Blood Trace-lysed H Urine Nitrite Negative Urine Bilirubin Negative Urine Urobilinogen 0.2 Ur Leukocyte Esterase Negative Urine RBC 0-2 Urine WBC 0-2 Ur Epithelial Cells Few Urine Crystals Negative Urine Bacteria Rare Urine Casts Negative Urine Mucus Negative Urine Other Few renal Ur Culture Indicated? No Urine Glucose Negative Salicylates Urine Opiates Screen Positive Urine Methadone Screen Negative Acetaminophen Ur Barbiturates Screen Negative Ur Tricyclics Screen Positive Ur Amphetamines Screen Negative U Benzodiazepines Scrn Negative Urine Cocaine Screen Negative Ur THC Screen Negative Ethyl Alcohol Legionella Source Pending Legionella Reprt Status Pending Legionella Final Result Pending M. pneumoniae Source M. pneumoniae (PCR) Ur Strep pneumoniae Ag Pending 11/13/18 11/13/18 11/13/18 05:37 05:15 05:15 WBC 17.21 H RBC 4.04 Hgb 11.1 L Hct 34.1 L MCV 84.4 MCH 27.5 MCHC 32.6 RDW 16.2 H Plt Count 278 MPV 11.1 H Immature Gran % 0.4 Neutrophils % 83.8 Lymphocytes % 8.7 Monocytes % 7.0 Eosinophils % 0.0 Basophils % 0.1 Absolute Neutrophils 14.42 H Absolute Lymphocytes 1.50 Absolute Monocytes 1.20 H Absolute Eosinophils 0.00 Absolute Basophils 0.02 PT 9.9 INR 1.0 APTT 22.9 Sample Site pCO2 pO2 O2 Saturation ABG pH ABG HCO3 ABG Total CO2 ABG Base Excess VBG pH 7.33 VBG pCO2 40 VBG pO2 19 L VBG HCO3 21 L VBG Total CO2 20 L VBG O2 Saturation 30 L VBG Base Excess -5.0 L Oxygen Liter Flow FiO2 Sodium Potassium Chloride Carbon Dioxide Anion Gap BUN Creatinine Estimated GFR/1.73 m2 Glucose Lactate Calcium Magnesium Total Bilirubin Conjugated Bilirubin AST ALT Alkaline Phosphatase Ammonia Troponin I NT-Pro-B Natriuret Pep Total Protein Albumin Lipase Urine Color Urine Clarity Urine pH Ur Specific [place] Urine Protein Urine Ketones Urine Blood Urine Nitrite Urine Bilirubin Urine Urobilinogen Ur Leukocyte Esterase Urine RBC Urine WBC Ur Epithelial Cells Urine Crystals Urine Bacteria Urine Casts Urine Mucus Urine Other Ur Culture Indicated? Urine Glucose Salicylates Urine Opiates Screen Urine Methadone Screen Acetaminophen Ur Barbiturates Screen Ur Tricyclics Screen Ur Amphetamines Screen U Benzodiazepines Scrn Urine Cocaine Screen Ur THC Screen Ethyl Alcohol Legionella Source Legionella Reprt Status Legionella Final Result M. pneumoniae Source M. pneumoniae (PCR) Ur Strep pneumoniae Ag 11/13/18 11/13/18 11/13/18 05:15 05:15 05:15 WBC RBC Hgb Hct MCV MCH MCHC RDW Plt Count MPV Immature Gran % Neutrophils % Lymphocytes % Monocytes % Eosinophils % Basophils % Absolute Neutrophils Absolute Lymphocytes Absolute Monocytes Absolute Eosinophils Absolute Basophils PT INR APTT Sample Site pCO2 pO2 O2 Saturation ABG pH ABG HCO3 ABG Total CO2 ABG Base Excess VBG pH VBG pCO2 VBG pO2 VBG HCO3 VBG Total CO2 VBG O2 Saturation VBG Base Excess Oxygen Liter Flow FiO2 Sodium 135 L Potassium 4.1 Chloride 98 Carbon Dioxide 19.7 L Anion Gap 17.3 H BUN 27 H Creatinine 1.92 H Estimated GFR/1.73 m2 27.02 Glucose 163 H Lactate Calcium 9.2 Magnesium 1.3 L Total Bilirubin 0.5 Conjugated Bilirubin 0.14 AST 25 ALT 28 Alkaline Phosphatase 99 Ammonia < 10 L Troponin I NT-Pro-B Natriuret Pep Total Protein 7.5 Albumin 3.1 L Lipase 77 Urine Color Urine Clarity Urine pH Ur Specific [place] Urine Protein Urine Ketones Urine Blood Urine Nitrite Urine Bilirubin Urine Urobilinogen Ur Leukocyte Esterase Urine RBC Urine WBC Ur Epithelial Cells Urine Crystals Urine Bacteria Urine Casts Urine Mucus Urine Other Ur Culture Indicated? Urine Glucose Salicylates 3.7 Urine Opiates Screen Urine Methadone Screen Acetaminophen < 2 L Ur Barbiturates Screen Ur Tricyclics Screen Ur Amphetamines Screen U Benzodiazepines Scrn Urine Cocaine Screen Ur THC Screen Ethyl Alcohol < 3.0 Legionella Source Legionella Reprt Status Legionella Final Result M. pneumoniae Source M. pneumoniae (PCR) Ur Strep pneumoniae Ag 11/13/18 10:32 Sputum Sputum Culture - Pending 11/13/18 06:45 Blood Blood Culture - Pending 11/13/18 06:25 Blood Blood Culture - Pending Preliminary micro results at discharge 11/13/18 10:32 Sputum Culture - Pending Sputum 11/13/18 06:45 Blood Culture - Pending Blood 11/13/18 06:25 Blood Culture - Pending Blood [facility] Medical History ARDS (adult respiratory distress syndrome) (Acute) GERD (gastroesophageal reflux disease) (Chronic) Tobacco abuse (Chronic) Essential hypertension (Chronic) Hyperlipidemia (Chronic) Anxiety disorder (Chronic) Depression (Chronic) Acute exacerbation of chronic obstructive pulmonary disease (COPD) (Acute) Elevated serum creatinine (Acute) COPD (chronic obstructive pulmonary disease) (Chronic) Chronic back pain (Chronic) Chronic pain syndrome (Chronic) GERD (gastroesophageal reflux disease) (Chronic) Ganglion cyst (Chronic) Hip pain, bilateral (Chronic) Hyperlipidemia (Chronic) IBS (irritable bowel syndrome) (Chronic) Impaired fasting glucose (Chronic) Knee pain, right (Chronic) Non-alcoholic fatty liver disease (Chronic) Restrictive lung disease (Chronic) Sleep disturbance (Chronic) Syncope (Chronic) Tobacco use disorder (Chronic) Abdominal pain (Resolved) Surgical History Hx of cholecystectomy (Chronic) History of bursectomy (Resolved) History of cholecystectomy (Resolved) Social History Smoking/Tobacco Use Status: Current every day Alcohol Intake: never Drug use: Never Substance use type: does not use Do you feel safe in your relationship?: Yes
[2018-11-13] MEDS: PROPOFOL 1,000 MG/100 ML BTL 37.8 MG IVPB (18:15)
[2018-11-13] MEDS: Normal Saline-STERILE FIELD 0.9% 10 ML SYR (18:46)
[2018-11-13] MEDS: Sodium Bicarbonate 50 MEQ/50 ML SYR 150 MEQ IVP (18:55)
[2018-11-13] MEDS: DEXTROSE 5%-WATER 1,000 ML 50 ML IV (18:57)
--- NOTE | 2018-11-14 10:30 | ROE_ITS ---
DATE OF PROCEDURE: November 13, 2018 PREOPERATIVE DIAGNOSIS: Need for central venous access/respiratory failure/ARDS/pneumonia. POSTOPERATIVE DIAGNOSIS: Same. PROCEDURE: Left subclavian central line insertion. SURGEON: Peg Mercedes D.O. ANESTHESIA: IV Sedation and local. ESTIMATED BLOOD LOSS: 5 cc's CONDITION: The patient tolerated the procedure well without complication, remained intubated and sed ated in the ICU. HISTORY: Ms. Mclaughlin is a 58-year-old female seen at the request of Dr. Mccann regarding central richelle ous access. Informed consent was obtained from her , as the patient is unable to give consent because she is on the ventilator. Risk include bleeding, infection, perforation, aspiration, pneumo thorax, damage to vein, artery, nerve; blood stream infections; fistulas and other unforetold complic ations. PROCEDURE: The patient is placed in the Trendelenburg position. She is intubated and sedated on the vent in the ICU. A time-out is performed. The area of the left subclavian and IJ is prepped and dr aped in the usual sterile fashion using a ChloraPrep scrub solution and infiltrated with 5 cc's of 1% Lidocaine plain. A Cook needle was used to cannulate the left subclavian vein; return or dark red, non-pulsatile blood. Guidewire is easily inserted over the needle and the needle was removed. A christiano k is made with a #11 blade; dilator inserted over the wire and removed, keeping good control of the g uidewire at all times. The previously-flushed catheter is then inserted over the wire to the fifteen esperanza and the wire is removed. Dark red, non-pulsatile blood is aspirated from all of the ports and the ports are flushed. The catheter is sewn into place. A sterile dressing is applied. Portable ch est x-ray shows good position and no PTX. The patient tolerated the procedure well without complication and remained in the ICU throughout the entirety of the procedure.
[2018-11-14 16:54] LABS: Streptococcus Pneumoniae Ag, U Negative (Negative)
[2018-11-15 00:18] LABS: Mycoplasma Pneumoniae PCR Negative; Specimen source SPUTUM
== END 2018-11-13 20:10 | disposition short-term general hospital (02) | DRG 208 ==
LOC: ER 06:54 → ICU 09:38
PROVIDERS: Admitting Provider Internal Medicine; Emergency Provider Emergency Medicine; PCP Physician Assistant Medical; Visit Provider Internal Medicine
DX: J96.01 Acute respiratory failure with hypoxia (principal); J18.9 Pneumonia, unspecified organism; J81.0 Acute pulmonary edema; J44.0 Chronic obstructive pulmonary disease with (acute) lower respiratory infection; J44.1 Chronic obstructive pulmonary disease with (acute) exacerbation; N17.9 Acute kidney failure, unspecified; E87.70 Fluid overload, unspecified; R25.1 Tremor, unspecified; K21.9 Gastro-esophageal reflux disease without esophagitis; I10 Essential (primary) hypertension; E78.5 Hyperlipidemia, unspecified; F41.8 Other specified anxiety disorders; F17.210 Nicotine dependence, cigarettes, uncomplicated; Z78.1 Physical restraint status; R41.82 Altered mental status, unspecified
CPT/HCPCS: 36415; 36592; 71045; 71275; 80048; 80053; 80076; 80307; 82805; 83690; 87040; 87077; 87449; 93005; 93306; 96361; 96365; 96366; 96368; 99222; 99223; 99239; 99253; 99285; 36600; 70450; 80320; 80329; 81003; 81015; 82140; 83605; 83735; 83880; 84484; 85025; 85610; 85730; 87070; 87186; 87205; 87450; 87581; 93010; 94002; 94640; 94660; J1650; J1940; J2250; J2543; J2930; J3490; J7620

== ENCOUNTER 2018-12-26 12:14 | Outpatient (REF) | payer MEDICARE, OTHER, SELFPAY ==
[2018-12-26 20:01] LABS: Abs Immature Grans 0.01 k/cumm (0.0-0.09); Absolute Basophil Count 0.04 k/cumm (0.0-0.2); Absolute Eosinophil Count 0.16 k/cumm (0.0-0.7); Absolute Lymphocyte Count 3.03 k/cumm (1.2-3.4); Absolute Monocyte Count 0.72 k/cumm (0.11-0.7); Absolute Neutrophil Count 4.35 k/cumm (1.2-6.7); Basophils % 0.5; Eosinophils % 1.9; HCT 36.9 % (36.0-46.0); HGB 11.5 g/dL (12.0-15.5); Immature Grans % 0.1; Lymphocytes % 36.5; Mean Corp. HGB Concentration 31.2 g/dL (32.0-36.0); Mean Corpuscular Hemoglobin 27.6 pg (27.0-33.0); Mean Corpuscular Volume 88.7 fL (80-95); Mean Platelet Volume 10.8 fL (8.0-11.0); Monocytes % 8.7; Neutrophils % 52.3; Platelet Count 321 x1000/uL (130-400); RBC 4.16 m/cumm (4.00-5.20); RBC Distribution Width 17.9 % (11.7-14.6); White Blood Cell Count 8.31 k/cumm (4.4-10.8)
[2018-12-26 20:38] LABS: ALT 18 U/L (12-78); AST 14 U/L (15-37); Albumin 3.7 g/dL (3.4-5.0); Alkaline Phosphatase 66 U/L (46-116); Anion Gap 11.8 mmol/L (3-11); BUN 14 mg/dL (7-18); Bilirubin, Total 0.2 mg/dL (0.2-1.0); CO2 25.2 mmol/L (21.0-32.0); CREATININE 1.03 mg/dL (0.55-1.02); Calcium 9.7 mg/dL (8.5-10.1); Chloride 104 mmol/L (98-107); Estimated GFR 55.43 (mL/min/1.73m2); Glucose 97 mg/dL (70-100); Potassium 4.7 mmol/L (3.5-5.1); Sodium 141 mmol/L (136-145); TSH 0.46 uIU/mL (0.358-3.74); Total Protein 7.1 g/dL (6.4-8.2)
[2018-12-27 14:43] LABS: FREE T4 1.09 ng/dL (0.76-1.46)
[2018-12-27 14:45] LABS: Hemoglobin A1C 5.9 % (4.5-6.2)
== END 2018-12-26 12:34 ==
LOC: NCHCN 12:14
PROVIDERS: PCP Physician Assistant Medical; Visit Provider Physician Assistant Medical
DX: I10 Essential (primary) hypertension (principal); R79.89 Other specified abnormal findings of blood chemistry; J96.92 Respiratory failure, unspecified with hypercapnia
CPT/HCPCS: 80053; 83036; 84439; 84443; 85025

== ENCOUNTER 2019-04-14 22:16 | Outpatient (REF) | payer MEDICARE, OTHER, SELFPAY ==
[2019-04-14 21:33] LABS: Hemoglobin A1C 5.9 % (4.5-6.2)
[2019-04-14 21:40] LABS: ALT 15 U/L (14-59); AST 16 U/L (15-37); Albumin 3.6 g/dL (3.4-5.0); Alkaline Phosphatase 82 U/L (46-116); Anion Gap 9.5 mmol/L (3-11); BUN 17 mg/dL (7-18); Bilirubin, Total 0.2 mg/dL (0.2-1.0); CO2 25.5 mmol/L (21.0-32.0); CREATININE 1.14 mg/dL (0.55-1.02); Calcium 9.3 mg/dL (8.5-10.1); Calculated LDL 168 mg/dL; Chloride 104 mmol/L (98-107); Cholesterol 238 mg/dL (50-200); Estimated GFR 49.31 (mL/min/1.73m2); Glucose 90 mg/dL (70-100); HDL Cholesterol 45 mg/dL (40-60); Potassium 4.8 mmol/L (3.5-5.1); Sodium 139 mmol/L (136-145); Total Protein 6.6 g/dL (6.4-8.2); Triglyceride 128 mg/dL (30-150)
== END 2019-04-14 22:36 ==
LOC: NCHCN 22:16
PROVIDERS: PCP Physician Assistant Medical; Visit Provider Physician Assistant Medical
DX: E78.5 Hyperlipidemia, unspecified (principal); I10 Essential (primary) hypertension; R73.01 Impaired fasting glucose
CPT/HCPCS: 80053; 80061; 83036

== ENCOUNTER 2019-05-13 14:59 | Outpatient (REF) | payer MEDICARE, OTHER, SELFPAY ==
--- NOTE | 2019-05-13 13:15 | PAPFT_PTH ---
PATIENT: Poppy Mclaughlin LOC: NCN #:[id number] AGE/SX: 58/F ROOM: RE05/13/[address]: Cb Florence : 1960 BED: DIS: 05/13/2019 SPEC #: [id number] RECD: 05/14/19 12:57 STATUS: LESLIE REChantal #: [id number] WILLIAN: 05/13/19 13:[address]: Cb Florence DEPT: [facility] Cytology RECD BY: Keena Lemus Tissues: 1 - CX/ENDOCX FOR PAP SMEARS Procedures: PAP THIN PREP/UVM Screening HPV DNA PROBE Comments: [id number]
== END 2019-05-13 15:19 ==
LOC: NCHCN 14:59
PROVIDERS: PCP Physician Assistant Medical; Visit Provider Physician Assistant Medical
DX: Z12.4 Encounter for screening for malignant neoplasm of cervix (principal); Z11.51 Encounter for screening for human papillomavirus (HPV)
CPT/HCPCS: 88142; 87624

== ENCOUNTER 2019-06-17 14:50 | Outpatient (REF) | payer MEDICARE, OTHER, SELFPAY ==
[2019-06-17 20:26] LABS: ALT 20 U/L (14-59); AST 10 U/L (15-37); Albumin 3.5 g/dL (3.4-5.0); Alkaline Phosphatase 74 U/L (46-116); Anion Gap 10.9 mmol/L (3-11); BUN 21 mg/dL (7-18); CO2 27.1 mmol/L (21.0-32.0); CREATININE 1.08 mg/dL (0.55-1.02); Calcium 9.2 mg/dL (8.5-10.1); Calculated LDL 112 mg/dL; Chloride 105 mmol/L (98-107); Cholesterol 184 mg/dL (50-200); Estimated GFR 52.48 (mL/min/1.73m2); Glucose 88 mg/dL (70-100); HDL Cholesterol 44 mg/dL (40-60); Potassium 4.3 mmol/L (3.5-5.1); Sodium 143 mmol/L (136-145); Total Protein 6.6 g/dL (6.4-8.2); Triglyceride 142 mg/dL (30-150)
[2019-06-17 21:36] LABS: Hemoglobin A1C 5.6 % (4.5-6.2)
[2019-06-17 21:41] LABS: Bilirubin, Total 0.2 mg/dL (0.2-1.0)
== END 2019-06-17 15:10 ==
LOC: NCHCN 14:50
PROVIDERS: PCP Physician Assistant Medical; Visit Provider Physician Assistant Medical
DX: E78.5 Hyperlipidemia, unspecified (principal); I10 Essential (primary) hypertension; R73.01 Impaired fasting glucose
CPT/HCPCS: 80053; 80061; 83036

== ENCOUNTER 2019-07-13 14:18 | Outpatient (REF) | payer MEDICARE, OTHER, SELFPAY ==
[2019-07-13 20:51] LABS: Anion Gap 11.2 mmol/L (3-11); BUN 21 mg/dL (7-18); CO2 26.8 mmol/L (21.0-32.0); CREATININE 1.19 mg/dL (0.55-1.02); Calcium 9.4 mg/dL (8.5-10.1); Chloride 104 mmol/L (98-107); Estimated GFR 46.92 (mL/min/1.73m2); Glucose 92 mg/dL (74-106); Potassium 4.5 mmol/L (3.5-5.1); Sodium 142 mmol/L (136-145)
== END 2019-07-13 14:38 ==
LOC: NCHCN 14:18
PROVIDERS: PCP Physician Assistant Medical; Visit Provider Physician Assistant Medical
DX: I10 Essential (primary) hypertension (principal)
CPT/HCPCS: 80048

== ENCOUNTER 2019-07-27 13:41 | Outpatient (REF) | payer MEDICARE, OTHER, SELFPAY ==
[2019-07-27 21:24] LABS: BUN 22 mg/dL (7-18); CREATININE 1.12 mg/dL (0.55-1.02); Calcium 9.7 mg/dL (8.5-10.1); Chloride 104 mmol/L (98-107); Estimated GFR 50.32 (mL/min/1.73m2); Glucose 96 mg/dL (74-106); Potassium 5.3 mmol/L (3.5-5.1); Sodium 141 mmol/L (136-145)
== END 2019-07-27 14:01 ==
LOC: NCHCN 13:41
PROVIDERS: PCP Physician Assistant Medical; Visit Provider Physician Assistant Medical
DX: I10 Essential (primary) hypertension (principal)
CPT/HCPCS: 80048

== ENCOUNTER 2019-09-01 21:52 | Outpatient (REF) | payer MEDICARE, OTHER, SELFPAY ==
[2019-09-01 19:22] LABS: Anion Gap 9.6 mmol/L (3-11); BUN 23 mg/dL (7-18); CO2 29.4 mmol/L (21.0-32.0); CREATININE 1.07 mg/dL (0.55-1.02); Calcium 9.3 mg/dL (8.5-10.1); Chloride 104 mmol/L (98-107); Estimated GFR 53.05 (mL/min/1.73m2); Glucose 83 mg/dL (74-106); Potassium 4.5 mmol/L (3.5-5.1); Sodium 143 mmol/L (136-145)
== END 2019-09-01 22:12 ==
LOC: NCHCN 21:52
PROVIDERS: PCP Physician Assistant Medical; Visit Provider Physician Assistant Medical
DX: I10 Essential (primary) hypertension (principal); R79.89 Other specified abnormal findings of blood chemistry
CPT/HCPCS: 80048

== ENCOUNTER 2019-09-30 12:49 | Outpatient (REF) | payer MEDICARE, OTHER, SELFPAY ==
[2019-09-30 20:14] LABS: Abs Immature Grans 0.02 k/cumm (0.0-0.09); Absolute Basophil Count 0.03 k/cumm (0.0-0.2); Absolute Eosinophil Count 0.09 k/cumm (0.0-0.7); Absolute Lymphocyte Count 2.44 k/cumm (1.2-3.4); Absolute Monocyte Count 0.41 k/cumm (0.11-0.7); Absolute Neutrophil Count 6.15 k/cumm (1.2-6.7); Basophils % 0.3; HCT 39.5 % (36.0-46.0); HGB 12.6 g/dL (12.0-15.5); Immature Grans % 0.2 %; Lymphocytes % 26.7; Mean Corp. HGB Concentration 31.9 g/dL (32.0-36.0); Mean Corpuscular Hemoglobin 29.5 pg (27.0-33.0); Mean Corpuscular Volume 92.5 fL (80-95); Mean Platelet Volume 10.7 fL (8.0-11.0); Monocytes % 4.5; Neutrophils % 67.3; Platelet Count 307 x1000/uL (130-400); RBC 4.27 m/cumm (4.00-5.20); RBC Distribution Width 15.3 % (11.7-14.6); White Blood Cell Count 9.14 k/cumm (4.4-10.8)
== END 2019-09-30 13:09 ==
LOC: NCHCN 12:49
PROVIDERS: PCP Physician Assistant Medical; Visit Provider Physician Assistant Medical
DX: M79.675 Pain in left toe(s) (principal)
CPT/HCPCS: 85025; 86140

== ENCOUNTER 2020-03-08 13:13 | Outpatient (REF) | payer MEDICARE, OTHER, SELFPAY ==
[2020-03-08 20:02] LABS: ALT 23 U/L (14-59); AST 12 U/L (15-37); Albumin 3.7 g/dL (3.4-5.0); Alkaline Phosphatase 68 U/L (46-116); Anion Gap 8.7 mmol/L (3-11); BUN 17 mg/dL (7-18); Bilirubin, Total 0.3 mg/dL (0.2-1.0); CO2 28.3 mmol/L (21.0-32.0); Calcium 9.7 mg/dL (8.5-10.1); Chloride 105 mmol/L (98-107); Estimated GFR 42.22 (mL/min/1.73m2); Glucose 89 mg/dL (74-106); Potassium 4.7 mmol/L (3.5-5.1); Sodium 142 mmol/L (136-145); Total Protein 6.7 g/dL (6.4-8.2); Vitamin B12 228 pg/mL (193-986)
== END 2020-03-08 13:33 ==
LOC: NCHCN 13:13
PROVIDERS: PCP Physician Assistant Medical; Visit Provider Physician Assistant Medical
DX: R79.89 Other specified abnormal findings of blood chemistry (principal); R25.9 Unspecified abnormal involuntary movements
CPT/HCPCS: 80053; 82607

== ENCOUNTER 2020-05-03 13:49 | Outpatient (REF) | payer MEDICARE, OTHER, SELFPAY ==
[2020-05-03 19:14] LABS: Anion Gap 5.8 mmol/L (3-11); BUN 19 mg/dL (7-18); CO2 30.2 mmol/L (21.0-32.0); CREATININE 1.26 mg/dL (0.55-1.02); Calcium 9.2 mg/dL (8.5-10.1); Chloride 106 mmol/L (98-107); Estimated GFR 43.77 (mL/min/1.73m2); Glucose 80 mg/dL (74-106); Potassium 4.9 mmol/L (3.5-5.1); Sodium 142 mmol/L (136-145)
[2020-05-03 19:17] LABS: Abs Immature Grans 0.03 10^3/uL (0.0-0.06); Absolute Basophil Count 0.06 10^3/uL (0.0-0.2); Absolute Eosinophil Count 0.39 10^3/uL (0.0-0.7); Absolute Lymphocyte Count 3.32 10^3/uL (1.2-3.4); Absolute Monocyte Count 0.49 10^3/uL (0.1-0.8); Absolute Neutrophil Count 4.13 10^3/uL (1.2-6.7); Basophils % 0.7; Eosinophils % 4.6; HCT 36.3 % (36.0-46.0); HGB 11.4 g/dL (11.2-15.7); Immature Grans % 0.4; Lymphocytes % 39.4; MCH 28.9 pg (27.0-33.0); MCHC 31.4 % (32.0-36.0); MCV 92.1 fL (80-95); MPV 10.8 fL (8.0-11.0); Monocytes % 5.8; Neutrophils % 49.1; Nucleated RBC 0 %; Platelet Count 267 10^3/uL (130-400); RBC 3.94 10^6/uL (3.93-5.22); RDW-SD 54.6 fL; WBC 8.42 10^3/uL (4.4-10.8)
[2020-05-03 20:05] LABS: Hemoglobin A1C 5.7 % (<5.7)
== END 2020-05-03 14:09 ==
LOC: NCHCN 13:49
PROVIDERS: PCP Physician Assistant Medical; Visit Provider Physician Assistant Medical
DX: R73.01 Impaired fasting glucose (principal); I10 Essential (primary) hypertension; Z01.818 Encounter for other preprocedural examination
CPT/HCPCS: 80048; 83036; 85025

== ENCOUNTER 2020-09-13 16:29 | Outpatient (REF) | payer MEDICARE, OTHER, SELFPAY ==
[2020-09-13 15:59] LABS: ALT 19 U/L (14-59); AST 11 U/L (15-37); Albumin 3.6 g/dL (3.4-5.0); Alkaline Phosphatase 72 U/L (46-116); Anion Gap 7.4 mmol/L (3-11); BUN 21 mg/dL (7-18); Bilirubin, Total 0.2 mg/dL (0.2-1.0); CO2 27.6 mmol/L (21.0-32.0); CREATININE 1.1 mg/dL (0.55-1.02); Calculated LDL 166 mg/dL (<100); Chloride 106 mmol/L (98-107); Cholesterol 251 mg/dL (<200); Estimated GFR 51.02 (mL/min/1.73m2); Glucose 90 mg/dL (74-106); HDL Cholesterol 51 mg/dL (40-60); Potassium 4.5 mmol/L (3.5-5.1); Sodium 141 mmol/L (136-145); Total Protein 6.7 g/dL (6.4-8.2); Triglyceride 171 mg/dL (<150)
== END 2020-09-13 16:30 | disposition home or self-care (01) ==
LOC: NCHCN 16:29
PROVIDERS: PCP Physician Assistant Medical; Visit Provider Physician Assistant Medical
DX: E78.5 Hyperlipidemia, unspecified (principal); R79.89 Other specified abnormal findings of blood chemistry
CPT/HCPCS: 80053; 80061

== ENCOUNTER 2021-01-11 15:12 | Outpatient (REF) | payer MEDICARE, OTHER, SELFPAY ==
[2021-01-11 15:31] LABS: ALT 16 U/L (14-59); AST 10 U/L (15-37); Albumin 3.6 g/dL (3.4-5.0); Alkaline Phosphatase 76 U/L (46-116); Anion Gap 7.8 mmol/L (3-11); BUN 15 mg/dL (7-18); Bilirubin, Total 0.3 mg/dL (0.2-1.0); CO2 27.2 mmol/L (21.0-32.0); CREATININE 1.3 mg/dL (0.55-1.02); Calcium 8.9 mg/dL (8.5-10.1); Calculated LDL 92 mg/dL (<100); Chloride 105 mmol/L (98-107); Cholesterol 164 mg/dL (<200); Estimated GFR 42.07 (mL/min/1.73m2); Glucose 89 mg/dL (74-106); HDL Cholesterol 42 mg/dL (40-60); Potassium 4.8 mmol/L (3.5-5.1); Sodium 140 mmol/L (136-145); Total Protein 6.6 g/dL (6.4-8.2); Triglyceride 150 mg/dL (<150)
== END 2021-01-11 15:13 | disposition home or self-care (01) ==
LOC: NCHCN 15:12
PROVIDERS: PCP Physician Assistant Medical; Visit Provider Physician Assistant Medical
DX: E78.5 Hyperlipidemia, unspecified (principal)
CPT/HCPCS: 80053; 80061

== ENCOUNTER → 2021-05-01 12:51 | Outpatient (BNVA) | payer MEDICARE, OTHER, SELFPAY | PROVIDERS: PCP Physician Assistant Medical; Referring Provider Physician Assistant Medical; Visit Provider Student in an Organized Health Care Education/Training Program | DX: L72.8 Other follicular cysts of the skin and subcutaneous tissue (principal) | CPT/HCPCS: 99213 ==

== ENCOUNTER 2021-05-15 02:53 | Outpatient (CLI) | payer MEDICARE, OTHER, SELFPAY ==
[2021-05-15 12:43] LABS: Source Nasal/Nares
[2021-05-15 21:31] LABS: COVID-19 PCR Negative (Negative)
== END 2021-05-15 02:54 | disposition home or self-care (01) ==
LOC: LBO 02:53
PROVIDERS: PCP Physician Assistant Medical; Visit Provider Student in an Organized Health Care Education/Training Program
DX: Z20.822 Contact with and (suspected) exposure to COVID-19 (principal); Z01.818 Encounter for other preprocedural examination
CPT/HCPCS: 87635

== ENCOUNTER 2021-05-16 12:18 | Day surgery (SDC) | payer MEDICARE, OTHER, SELFPAY ==
--- NOTE | 2021-05-16 12:44 | PDOC.DSDIS_ITS ---
Discharge Plan Disposition Patient Disposition: HOME Condition: Good Discharge Details Reason For Visit: Right hand cyst Attending Provider: Dion Lopez Primary Care Provider: Cb Florence Home Meds and New Rx's Prescriptions: New hydrocodone-acetaminophen 5-325 mg tablet 1 tab PO Q8H PRN (Reason: severe pain) Qty: 3 RF: 0 Continued meloxicam 7.5 mg tablet 7.5 mg PO BID RF: 0 promethazine 25 mg tablet 25 mg PO Q6H PRNRF: 0 diphenoxylate-atropine 2.5-0.025 mg tablet 2 tab PO QID PRNRF: 0 bupropion HCl [Wellbutrin SR] 200 mg tablet sustained-release 12 hr 200 mg PO DAILY RF: 0 albuterol sulfate [Ventolin HFA] 90 mcg/actuation HFA aerosol inhaler 2 puff IH Q6H PRNRF: 0 guaifenesin 200 mg tablet 600 mg PO BID PRNRF: 0 (DME) Oxygen Tank See Dose Instructions .ROUTE .MEDSUPPLY Qty: 1 RF: 0 Belsomra 10 mg tablet 10 mg PO QHS RF: 0 montelukast [Singulair] 10 MG tablet 10 mg PO DAILY RF: 0 rosuvastatin [Crestor] 10 MG tablet 10 mg PO HS RF: 0 loratadine [Claritin Liqui-Gel] 10 MG capsule 10 mg PO DAILY RF: 0 Narcan 4 MG spray,non-aerosol 4 mg NS PRN Qty: 2 RF: 0 baclofen 10 mg tablet 10 mg PO TID PRNRF: 0 budesonide-formoterol [Symbicort] 10.2 GM HFA aerosol inhaler 2 inh Inhalation BID RF: 0 lisinopril 10 MG tablet 10 mg PO DAILY RF: 0 Robitussin Cough and Cold CF 118 ML liquid 118 ml PO PRN PRNRF: 0 acetaminophen [Mapap Extra Strength] 500 MG tablet 1,000 mg PO QID PRNQty: 90 RF: 3 nystatin 100,000 UNIT/ML suspension 500,000 unit PO QID Qty: 200 RF: 1 prochlorperazine maleate [Compazine] 10 mg tablet 10 mg PO TID PRN (Reason: nausea and vomiting) Qty: 30 RF: 0 tramadol 50 mg tablet 50 mg PO TID RF: 0 pregabalin 150 mg capsule 150 mg PO BID RF: 0 Spiriva Respimat 2.5 mcg/actuation mist 2 puff INHALATION PRN PRNRF: 0 Discharge Instructions Additional Instructions: Cyst Excision Discharge Instructions Activity: You may use your fingers for light activity. You should limit any excessive motion or forceful gripping until the sutures have been removed. Dressings: You should keep the initial surgical dressing in place for at least 3 days. You may remove your dressings and get the wound wet after 3 days. You should keep the dressings and the wound clean at all times. You may keep the initial dressing in place until your follow-up but keep the wound covered with light gauze until the sutures are removed. Medications: - You should take Tylenol and Ibuprofen around the clock per instructional design specialist's recommendations. - You take meloxicam at baseline - please feel free to either continue with meloxicam as previously prescribed or take ibuprofen. Both ibuprofen and meloxicam are from the medication class and should not be taken together. - You have been prescribed a narcotic medication, hydrocodone, to help with breakthrough pain as needed. Follow-up: 7-10 days for wound check and suture removal. Referrals: Dion Lopez MD [ [facility] STAFF PHYSICIAN] - Activity:: Elevate Remove Dressings/Wound Care:: 72 hours Shower/Bathe:: 72 hours Diet:: As Tolerated Discharge Orders Discharge Orders: Discharge Order (Routine); Ordered 05/16/21 Ordered By: Peg Talbot DS: Diagnosis Discharge Diagnosis (1) Cyst in hand: Status: Acute
[2021-05-16 12:52] VITALS: BP 133/87; PULSE 76; RESP 20; TEMP 36.6; O2SAT 92
[2021-05-16] MEDS: Sodium Bicarbonate 50 MEQ/50 ML VIAL (14:25)
[2021-05-16 14:29] VITALS: BP 157/87; PULSE 74; RESP 16; TEMP 36.3; O2SAT 93
--- NOTE | 2021-05-17 08:16 | W.PM.OP ---
Date of service: 05/16/21 Time of Service: 14:42 Operative Note Operative Note DATE OF PROCEDURE: 05/16/21 PRE-OP DIAGNOSIS: Right Hand Mass POST-OP DIAGNOSIS: other Right 1st Webspace Inclusion Cyst PROCEDURE: Excision of Subcutaneous Cyst - Right hand SURGEON: Dion Lopez ANESTHESIA TYPE: Local By Surgeon Refer to Anesthesia Record ESTIMATED BLOOD LOSS: 0 PATHOLOGY: none sent TOURNIQUET TIME: 0 COMPLICATIONS: None Patient was transported to: same day Patient's condition: stable Indications: I have seen Poppy for a mass in the first abscess of the right hand. It causes pain and occasionally has a discharge to it. Is been present for some time and has not gone away. Therefore, I offered excision of this likely inclusion cyst. I discussed the risk of the procedure to include recurrence, pain, stiffness, damage to nerves and vessels, infection, wound healing complications. Despite these risk, she elects to proceed. Findings: There is a defect of the skin which is currently scarred over with a dense mass underlying it. This was excised completely including the skin. The hard nodule deep to the skin was an inclusion cyst. Procedure Description: Poppy was greeted in the preoperative holding area where the correct side was identified and marked. The consent was reviewed with the patient and signed. All questions were answered. Poppy was taken back to the operating room. The patient was placed into the supine position on the operating room table with the right arm on an arm board. All bony prominences were well padded. No prophylactic antibiotics were administered since this was a clean, elective hand surgical case. The right arm was then prepped with Chloraprep and draped in a standard fashion with stockinette and extremity drape. A timeout to confirm correct identity, side and site, procedure, allergies, anesthesia, and medical concerns was performed. The surgical site was marked as a ellipse around the skin and subtendinous mass. This area was then anesthetized with 1% Lidocaine. The patient tolerated this well and once the anesthetic had setup, the procedure began. The incision was carried through skin only, approximately 1cm. The mass was directly connected to the skin and was excised sharply with the skin. Once the density was passed, the tissues were transected and this was removed in whole. It was examined on the back table which showed to be an inclusion cyst. There is no other signs of infection or other remnant mass. There was some thickening of the skin. The wound was then thoroughly irrigated. The skin was closed with a 4-0 Nylon. This was dressed with gauze and a Conform dressing. The patient tolerated the procedure well and was returned to the Same Day Surgery area in a stable condition suffering no known complication.
== END 2021-05-16 14:59 | disposition home or self-care (01) ==
PROVIDERS: PCP Physician Assistant Medical; Visit Provider Student in an Organized Health Care Education/Training Program
PROC: (CPT 26160; principal; 2021-05-16 14:30)
DX: L72.0 Epidermal cyst (principal)
CPT/HCPCS: 11421

== ENCOUNTER → 2021-05-25 11:10 | Outpatient (BNVA) | payer MEDICARE, OTHER, SELFPAY | PROVIDERS: PCP Physician Assistant Medical; Referring Provider Physician Assistant Medical; Visit Provider Student in an Organized Health Care Education/Training Program | DX: Z47.89 Encounter for other orthopedic aftercare (principal) ==

== ENCOUNTER 2021-06-20 13:00 | Outpatient (REF) | payer MEDICARE, OTHER, SELFPAY ==
[2021-06-20 14:38] LABS: Abs Immature Grans 0.01 10^3/uL (0.0-0.06); Absolute Basophil Count 0.03 10^3/uL (0.0-0.2); Absolute Lymphocyte Count 2.97 10^3/uL (1.2-3.4); Absolute Monocyte Count 0.41 10^3/uL (0.1-0.8); Absolute Neutrophil Count 5.03 10^3/uL (1.2-6.7); Basophils % 0.3; Eosinophils % 2.3; HCT 38.2 % (36.0-46.0); Immature Grans % 0.1; Lymphocytes % 34.3; MCH 29.4 pg (27.0-33.0); MCHC 31.4 % (32.0-36.0); MCV 93.6 fL (80-95); MPV 11.9 fL (8.0-11.0); Monocytes % 4.7; Neutrophils % 58.3; Nucleated RBC 0 %; Platelet Count 179 10^3/uL (130-400); RBC 4.08 10^6/uL (3.93-5.22); RDW 13.9 % (11.7-14.6); RDW-SD 47.4 fL; WBC 8.65 10^3/uL (4.4-10.8)
[2021-06-20 14:45] LABS: Prothrombin Time 9.9 sec (9.3-11.0)
[2021-06-21 00:20] LABS: Albumin 3.6 g/dL (3.4-5.0); Alkaline Phosphatase 80 U/L (46-116); BUN 22 mg/dL (7-18); Bilirubin, Total 0.3 mg/dL (0.2-1.0); CREATININE 1.3 mg/dL (0.55-1.02); Calcium 9.3 mg/dL (8.5-10.1); Estimated GFR 42.07 (mL/min/1.73m2); Glucose 90 mg/dL (74-106); Total Protein 6.3 g/dL (6.4-8.2)
[2021-06-21 00:21] LABS: ALT 19 U/L (14-59); AST 12 U/L (15-37); Anion Gap 7.3 mmol/L (3-11); CO2 30.7 mmol/L (21.0-32.0); Chloride 106 mmol/L (98-107); Potassium 4.9 mmol/L (3.5-5.1); Sodium 144 mmol/L (136-145)
== END 2021-06-20 13:01 | disposition home or self-care (01) ==
LOC: NCHCN 13:00
PROVIDERS: PCP Physician Assistant Medical; Visit Provider Physician Assistant Medical
DX: Z01.818 Encounter for other preprocedural examination (principal)
CPT/HCPCS: 80053; 85025; 85610

== ENCOUNTER 2021-10-25 19:12 | Outpatient (REF) | payer MEDICARE, OTHER, SELFPAY ==
[2021-10-25 21:35] LABS: Abs Immature Grans 0.01 10^3/uL (0.0-0.06); Absolute Basophil Count 0.06 10^3/uL (0.0-0.2); Absolute Eosinophil Count 0.22 10^3/uL (0.0-0.7); Absolute Lymphocyte Count 2.51 10^3/uL (1.2-3.4); Absolute Monocyte Count 0.45 10^3/uL (0.1-0.8); Absolute Neutrophil Count 4.86 10^3/uL (1.2-6.7); Basophils % 0.7; Eosinophils % 2.7; HCT 36.2 % (36.0-46.0); Immature Grans % 0.1; Lymphocytes % 30.9; MCH 26.3 pg (27.0-33.0); MCHC 30.4 % (32.0-36.0); MCV 86.6 fL (80-95); MPV 11.9 fL (8.0-11.0); Monocytes % 5.5; Neutrophils % 60.1; Nucleated RBC 0 %; Platelet Count 212 10^3/uL (130-400); RBC 4.18 10^6/uL (3.93-5.22); RDW 16.7 % (11.7-14.6); RDW-SD 52.1 fL; WBC 8.11 10^3/uL (4.4-10.8)
[2021-10-25 21:50] LABS: Hemoglobin A1C 6.2 % (<5.7)
[2021-10-25 21:54] LABS: ALT 20 U/L (14-59); AST 14 U/L (15-37); Albumin 3.6 g/dL (3.4-5.0); Alkaline Phosphatase 89 U/L (46-116); Anion Gap 8.2 mmol/L (3-11); BUN 14 mg/dL (7-18); Bilirubin, Total 0.2 mg/dL (0.2-1.0); CO2 27.8 mmol/L (21.0-32.0); CREATININE 1.2 mg/dL (0.55-1.02); Calcium 8.9 mg/dL (8.5-10.1); Chloride 104 mmol/L (98-107); Estimated GFR 45.98 (mL/min/1.73m2); Glucose 84 mg/dL (74-106); Potassium 4.3 mmol/L (3.5-5.1); Sodium 140 mmol/L (136-145); Total Protein 6.9 g/dL (6.4-8.2)
== END 2021-10-25 19:13 | disposition home or self-care (01) ==
LOC: NCHCN 19:12
PROVIDERS: PCP Physician Assistant Medical; Visit Provider Physician Assistant Medical
DX: R73.03 Prediabetes (principal)
CPT/HCPCS: 80053; 83036; 83735; 85025

== ENCOUNTER → 2022-01-19 00:10 | Outpatient (CLI) | payer MEDICARE, OTHER, SELFPAY ==
--- NOTE | 2022-01-19 13:00 | DI.CTLCSR_ITS ---
Exam(s) CT CHEST LUNG CANCER SCREEN EXAM: CT CHEST LUNG CANCER SCREEN CLINICAL HISTORY: [employer], F17.210 TECHNIQUE: Imaging Protocol: Axial computed tomography images with coronal and sagittal reformatted images were created and reviewed COMPARISON: CT ABD PELVIS WITH CONTRAST from 09/11/[address] CHEST PE CTA from 11/13/2018 FINDINGS: Tracheobronchial tree: Patent where visualized. Pulmonary parenchyma: Scarring or atelectasis is seen in the lingula and right middle lobe. Mild efren trilobular emphysematous changes are present. Lung Nodules: There are multiple calcified granulomas present. There is a 5 mm noncalcified pulmonar y nodule in the left upper lobe. Mediastinum and Barb: No dominant adenopathy or fluid collection. The esophagus is unremarkable. Thyroid gland: Unremarkable. Lymph nodes: Unremarkable. Pleura: No effusion or pneumothorax. Heart: The heart is not dilated. Coronary artery calcifications are present. No pericardial effusion . Aorta: Thoracic aorta non-dilated.Atherosclerosis is present. Upper abdomen: There is a stable 2.7 cm left adrenal nodule. This is unchanged dating back to 2011. This likely reflects an adenoma. No follow-up is recommended. Soft Tissues: Unremarkable. Bones: Within normal limits. There are postsurgical changes seen in the lower cervical spine. IMPRESSION: 1. 5 mm noncalcified pulmonary nodule in the left upper lobe. 2. Multiple calcified granulomas. 3. Mild centrilobular emphysema. Lung RADS Cat 2 - Benign Appearance / Behavior: Nodules with a very low likelihood of becoming a clin ically active cancer due to size or lack of growth Lung-RADS 1.0 CATEGORIES: Category 0 - Prior chest CT exam(s) being located for comparison. Category 1 - Annual screening in 12 months. No nodules or definitely benign nodules. Category 2 - Annual screening in 12 months. Benign appearance. Nodules with low likelihood of becomin g active cancer. Category 3 - 6-month follow-up. Probably benign. Short-term follow-up suggested. Nodules with low lik elihood of becoming active cancer. Category 4A - 3-month follow-up and CT/PET if >8 mm in size. Suspicious finding. Findings which requi re additional testing. Category 4B - Findings which require additional testing and tissue sampling. Suspicious finding. Category 4X - Category 3 or 4 nodules with additional features or imaging findings that increases the suspicion of malignancy. Modifier S- Potentially clinically significant finding. (Non lung cancer) RADIATION DOSE DELIVERED: 87.6mGy.cm Total DLP 2.21mGyCTDIvol 87.6mGy.cm Total DLP 2.21mGy CTDIvol DATA REPOSITORY: All CT scans at this facility are submitted to the National Radiology Data Registry (NRDR) Dose Index Registry (DIR) with the [employer] (A[employer]). RADIATION OPTIMIZATION: All CT scans at this facility use at least one of these dose optimization te chniques: automated exposure control; mA and/or kV adjustment per patient size (includes targeted exa ms where dose is matched to clinical indication); or iterative reconstruction.
--- NOTE | 2022-01-19 13:48 | DI.MAMMO_ITS ---
Exam(s) MAMMO SCREENING EXAM: MAMMO SCREENING CLINICAL HISTORY: BASELINE SCREENING, [facility], Z00.00 TECHNIQUE: Bilateral full field digital CC and MLO mammographic images were obtained with 3D tomosyn thesis and utilizing computer aided detection (CAD). COMPARISON: None. FINDINGS: Masses/Architectural Distortion: There is an ovoid density in the upper-outer quadrant of the right b reast. Microcalcifications: No suspicious pleomorphic-type are seen. Skin Thickening/Nipple Retraction: None. IMPRESSION: 1. There is an ovoid density in the upper-outer quadrant of the right breast. 2. This area should be further evaluated with a spot compression view. Ultrasound may be indicated a t that time. BI-RADS Category 0 - Assessment Incomplete: Need additional imaging evaluation Breast Density - Category B - Scattered areas of fibroglandular density Breast density category C or D implies that the patient has dense breast tissue. Dense breast tissue is very common and is not abnormal but dense breast tissue can make it harder to find cancer on a ma mmogram. Also, dense breast tissue may increase their breast cancer risk. This information about the result of the mammogram report was provided to the patient to raise their awareness. Use this report when you speak with the patient about their risks for breast cancer, which includes their family hist ory. At that time, you may recommend for more screening tests (Ultrasound or MRI) as they might be us eful based on their risk. A negative radiographic report should not delay biopsy if a dominant or clinically suspicious mass is present. Up to ten percent of cancers are not identified on mammography. A negative report may reinforce clinical impression. Adenosis and dense breasts may obscure an underlying neoplasm. False positive reports average 6 to 10%. Patient will receive a letter notifying them of these results.
== END ==
PROVIDERS: PCP Physician Assistant Medical; Visit Provider Family Medicine
DX: Z12.31 Encounter for screening mammogram for malignant neoplasm of breast (principal); R92.8 Other abnormal and inconclusive findings on diagnostic imaging of breast; Z12.2 Encounter for screening for malignant neoplasm of respiratory organs; F17.210 Nicotine dependence, cigarettes, uncomplicated; J43.2 Centrilobular emphysema; J98.4 Other disorders of lung; R91.1 Solitary pulmonary nodule
CPT/HCPCS: 71271; 77063; 77067

== ENCOUNTER → 2022-01-30 00:16 | Outpatient (CLI) | payer MEDICARE, OTHER, SELFPAY | PROVIDERS: PCP Physician Assistant Medical; Visit Provider Physician Assistant Medical ==

== ENCOUNTER 2022-02-23 12:08 | Outpatient (REF) | payer MEDICARE, OTHER, SELFPAY ==
[2022-02-23 17:31] LABS: Hemoglobin A1C 6.1 % (<5.7)
[2022-02-23 18:10] LABS: ALT 15 U/L (14-59); AST 12 U/L (15-37); Albumin 3.6 g/dL (3.4-5.0); Alkaline Phosphatase 72 U/L (46-116); Anion Gap 7.9 mmol/L (3-11); BUN 11 mg/dL (7-18); Bilirubin, Total 0.2 mg/dL (0.2-1.0); CO2 28.1 mmol/L (21.0-32.0); CREATININE 1.2 mg/dL (0.55-1.02); Calcium 9.2 mg/dL (8.5-10.1); Calculated LDL 75 mg/dL (<100); Chloride 106 mmol/L (98-107); Cholesterol 154 mg/dL (<200); Estimated GFR 45.98 (mL/min/1.73m2); Glucose 103 mg/dL (74-106); HDL Cholesterol 43 mg/dL (40-60); Potassium 4.1 mmol/L (3.5-5.1); Sodium 142 mmol/L (136-145); Total Protein 7.3 g/dL (6.4-8.2); Triglyceride 183 mg/dL (<150)
== END 2022-02-23 12:09 | disposition home or self-care (01) ==
LOC: NCHCN 12:08
PROVIDERS: PCP Physician Assistant Medical; Visit Provider Physician Assistant Medical
DX: I10 Essential (primary) hypertension (principal); R73.03 Prediabetes
CPT/HCPCS: 80053; 80061; 83036

== ENCOUNTER 2022-05-18 16:12 | Outpatient (REF) | payer MEDICARE, OTHER, SELFPAY | END 2022-05-18 16:13 | disposition home or self-care (01) | LOC: NCHCN 16:12 | PROVIDERS: PCP Physician Assistant Medical; Visit Provider Physician Assistant Medical | DX: R21 Rash and other nonspecific skin eruption (principal) | CPT/HCPCS: 87077; 87070; 87186; 87205 ==

== ENCOUNTER 2022-09-14 13:42 | Outpatient (REF) | payer MEDICARE, OTHER, SELFPAY ==
[2022-09-14 16:14] LABS: *AMPHETAMINES SCREEN URINE Negative (Negative); *BARBITURATES SCREEN URINE Negative (Negative); *BENZODIAZEPINES SCREEN URINE Negative (Negative); Cannabinoids THC Negative (Negative); Cocaine Screen,Urine Negative (Negative); METHADONE URINE SCREEN Negative (Negative); OPIATES URINE SCREEN Negative (Negative); Tricyclic Antidepressants Negative (Negative)
== END 2022-09-14 13:43 | disposition home or self-care (01) ==
LOC: NCHCN 13:42
PROVIDERS: PCP Physician Assistant Medical; Visit Provider Physician Assistant Medical
DX: Z02.89 Encounter for other administrative examinations (principal); Z51.81 Encounter for therapeutic drug level monitoring
CPT/HCPCS: 80307

== ENCOUNTER 2023-03-19 13:21 | Outpatient (REF) | payer MEDICARE, OTHER, SELFPAY ==
[2023-03-19 16:12] LABS: Abs Immature Grans 0.01 10^3/uL (0.0-0.06); Absolute Basophil Count 0.03 10^3/uL (0.0-0.2); Absolute Eosinophil Count 0.23 10^3/uL (0.0-0.7); Absolute Lymphocyte Count 2.93 10^3/uL (1.2-3.4); Absolute Monocyte Count 0.36 10^3/uL (0.1-0.8); Basophils % 0.3; Eosinophils % 2.6; HCT 37.4 % (36.0-46.0); HGB 12.2 g/dL (11.2-15.7); Immature Grans % 0.1; Lymphocytes % 33.4; MCH 29.5 pg (27.0-33.0); MCHC 32.6 % (32.0-36.0); MCV 91 fL (80-95); MPV 11.8 fL (8.0-11.0); Monocytes % 4.1; Neutrophils % 59.5; Platelet Count 191 10^3/uL (130-400); RBC 4.13 10^6/uL (3.93-5.22); RDW 15.2 % (11.7-14.6); RDW-SD 50.5 fL; WBC 8.76 10^3/uL (4.4-10.8)
[2023-03-19 16:29] LABS: ALT 15 U/L (14-59); AST 15 U/L (15-37); Albumin 3.5 g/dL (3.4-5.0); Alkaline Phosphatase 64 U/L (46-116); Anion Gap 6.9 mmol/L (3-11); BUN 14 mg/dL (7-18); Bilirubin, Total 0.3 mg/dL (0.2-1.0); CO2 29.1 mmol/L (21.0-32.0); CREATININE 1.3 mg/dL (0.55-1.02); Calcium 9.2 mg/dL (8.5-10.1); Calculated LDL 83 mg/dL (<100); Chloride 106 mmol/L (98-107); Cholesterol 152 mg/dL (<200); Estimated GFR 47.08 (mL/min/1.73m2); Glucose 89 mg/dL (74-106); HDL Cholesterol 52 mg/dL (40-60); Potassium 4.1 mmol/L (3.5-5.1); Sodium 142 mmol/L (136-145); Total Protein 6.7 g/dL (6.4-8.2); Triglyceride 87 mg/dL (<150)
[2023-03-19 16:48] LABS: Hemoglobin A1C 5.7 % (<5.7)
== END 2023-03-19 13:22 | disposition home or self-care (01) ==
LOC: NCHCN 13:21
PROVIDERS: PCP Physician Assistant Medical; Visit Provider Physician Assistant Medical
DX: E78.5 Hyperlipidemia, unspecified (principal); R73.03 Prediabetes; R79.89 Other specified abnormal findings of blood chemistry
CPT/HCPCS: 80053; 80061; 83036; 85025

== ENCOUNTER → 2023-09-16 09:00 | Outpatient (BNVA) | payer MEDICARE, OTHER, MEDICAID, SELFPAY | PROVIDERS: PCP Physician Assistant Medical; Referring Provider Physician Assistant Medical; Visit Provider Student in an Organized Health Care Education/Training Program | DX: M65.331 Trigger finger, right middle finger (principal) | CPT/HCPCS: 99213 ==

== ENCOUNTER 2023-10-09 05:58 | Day surgery (SDC) | payer MEDICARE, OTHER, MEDICAID, SELFPAY ==
[2023-10-09 06:22] VITALS: BP 110/86; PULSE 79; RESP 18; TEMP 36.7; O2SAT 95
--- NOTE | 2023-10-09 07:21 | W.PM.DSUDISC ---
Date of service: 10/09/23 Time of Service: 07:21 Discharge Plan Disposition Patient Disposition: Home Condition: Good Discharge Details Reason For Visit: RMF Trigger Release Attending Provider: Dion Lopez Primary Care Provider: Cb Florence Home Meds and New Rx's Prescriptions: Continued promethazine 25 mg tablet 25 mg PO Q6H PRN bupropion HCl [Wellbutrin SR] 200 mg tablet sustained-release 12 hr 200 mg PO DAILY albuterol sulfate [Ventolin HFA] 90 mcg/actuation HFA aerosol inhaler 2 puff IH Q6H PRN (DME) Oxygen Tank See Dose Instructions .ROUTE .MEDSUPPLY Qty: 1 Rx Instructions: As directed 2LPM at night trazodone 100 mg tablet 100 mg PO QHS PRN montelukast [Singulair] 10 MG tablet 10 mg PO DAILY rosuvastatin [Crestor] 10 MG tablet 10 mg PO HS Claritin Liqui-Gel 10 MG capsule 10 mg PO DAILY baclofen 10 mg tablet 10 mg PO TID PRN Patient Comments: Pt reports 10mg, 10mg, 20mg HS 05/16/21 celecoxib [Celebrex] 200 mg capsule 200 mg PO DAILY duloxetine 60 mg capsule,delayed release(DR/EC) 60 mg PO DAILY budesonide-formoterol [Symbicort] 10.2 GM HFA aerosol inhaler 2 inh Inhalation BID Patient Comments: 03/03/18 uses only sometime gives her thrush per pt.jw lisinopril 10 MG tablet 10 mg PO DAILY Patient Comments: 03/03/18 per not only takes sometimesjw 02/08/17 pt records show 5mg/day.HE tizanidine 4 mg tablet Patient Comments: TAKE 1 TABLET BY MOUTH THREE TIMES DAILY NEEDED famotidine 40 mg tablet Patient Comments: TAKE 1 TABLET BY MOUTH ONCE DAILY FOR GERD/INDIGESTION trazodone 150 mg tablet Patient Comments: TAKE 1 TABLET BY MOUTH AT BEDTIME Spiriva Respimat 2.5 mcg/actuation mist INHALATION acetaminophen [Mapap Extra Strength] 500 MG tablet 1,000 mg PO QID PRNQty: 90 3RF prochlorperazine maleate [Compazine] 10 mg tablet 10 mg PO TID PRN (Reason: nausea and vomiting) Qty: 30 0RF tramadol 50 mg tablet 50 mg PO TID Patient Comments: TAKE 1 TABLET BY MOUTH THREE TIMES DAILY NEEDED FOR PAIN pregabalin 150 mg capsule 150 mg PO BID Patient Comments: TAKE 1 CAPSULE BY MOUTH TWICE DAILY Discharge Instructions Additional Instructions: You should continue your Celebrex and Tylenol for pain control. Stand Alone Forms: Jessica Levi Finger Release Activity:: Activity as Tolerated Remove Dressings/Wound Care:: 48 hours Shower/Bathe:: 48 hours Diet:: As Tolerated Discharge Orders Discharge Orders: Discharge Order (Routine); Ordered 10/09/23 Ordered By: Joshua Sabillon DS: Diagnosis Discharge Diagnosis (1) Trigger finger, right middle finger: Status: Acute
[2023-10-09] MEDS: Lidocaine 1% Multi-Dose W/EPI 1/100,000 50 ML VIAL (07:34)
[2023-10-09] MEDS: Sodium Bicarbonate 50 MEQ/50 ML VIAL (07:35)
[2023-10-09 07:40] VITALS: BP 115/82; PULSE 69; RESP 18; TEMP 36.6; O2SAT 95
--- NOTE | 2023-10-09 07:41 | ROE_ITS ---
Date of service: 10/09/23 Time of Service: 07:25 Operative Note Operative Note DATE OF PROCEDURE: 10/09/23 PRE-OP DIAGNOSIS: Right Middle Finger Trigger Finger POST-OP DIAGNOSIS: same PROCEDURE: Trigger Finger Release - Right Middle Finger SURGEON: Dion Lopez ANESTHESIA TYPE: Local By Surgeon Refer to Anesthesia Record ESTIMATED BLOOD LOSS: 0 PATHOLOGY: none sent TOURNIQUET TIME: 0 COMPLICATIONS: None Patient was transported to: same day Patient's condition: stable Indications: I have seen Poppy in clinic for symptoms of a trigger finger. The catching, clicking, locking, and pain limited function. The diagnosis of trigger finger was evident. The symptoms had not responded to conservative measures. I d iscussed trigger finger release with the patient. I reviewed the risks of the procedure to include, but not limited to, bleeding, infection, pain, stiffness, incomplete release, damage to nerves or vessels, continued catching, recurrence. Despite these risks, the patient elected to proceed. Findings: There was a tightened A1 xuan which was released. The flexor tendons were inspected and the patient was able to move the finger without any catching, clicking, or locking. Procedure Description: Poppy was greeted in the preoperative holding area where the correct side was identified and marked. The consent was reviewed with the patient and signed. All questions were answered. She was taken back to the operating room. The patient was placed into the supine position on the operating room table with the right arm on an arm board. All bony prominences were well padded. No prophylactic antibiotics were administered since this was a clean, elective hand surgical case. The right arm was then prepped with Chloraprep and draped in a standard fashion with stockinette and extremity drape. A timeout to confirm correct identity, side and site, procedure, allergies, anesthesia, and medical concerns was performed. The surgical site was marked over the distal palmar flexion crease over the A1 xuan of the involved digit. This was confirmed with palpation during finger flexion. This area, overlying the metacarpal head, was then anesthetized with 1% Lidocaine. The patient tolerated this well and once the anesthetic had setup, the procedure began. A longitudinal incision was made through skin only, approximately 1cm. The deep tissues were dissected bluntly. Once the A1 xuan and flexor tendons were identified the soft tissue including neurovascular structures were retracted medially and laterally. There were no crossing structures over the A1 xuan. The proximal edge of the xuan was identified and the xuan was incised with tenotomy scissors. There was a release of the tendons once this was fully released. The tendons were then removed from the wound and inspected. Excess synovium was resected. The tendons were then returned and the patient was asked to move the finger into deep flexion and back to extension. There was no recreation of the pre-operative symptoms. The hand was then once more inspected for any A0 xuan or area of possible constriction. The wound was then irrigated and the skin was closed with a 4-0 Nylon. This was dressed with gauze and a Conform dressing. The patient tolerated the procedure well and was returned to the Same Day Surgery area in a stable condition suffering no known complication.
== END 2023-10-09 08:01 | disposition home or self-care (01) ==
PROVIDERS: PCP Physician Assistant Medical; Visit Provider Student in an Organized Health Care Education/Training Program
PROC: (CPT 26055; principal; 2023-10-09 07:30)
DX: M65.331 Trigger finger, right middle finger (principal)
CPT/HCPCS: 26055; J2004

== ENCOUNTER → 2023-10-18 08:56 | Outpatient (BNVA) | payer MEDICARE, OTHER, MEDICAID, SELFPAY | PROVIDERS: PCP Physician Assistant Medical; Referring Provider Physician Assistant Medical | DX: Z47.89 Encounter for other orthopedic aftercare (principal); M65.331 Trigger finger, right middle finger ==

== ENCOUNTER → 2023-11-01 08:42 | Outpatient (BNVA) | payer MEDICARE, OTHER, MEDICAID, SELFPAY | PROVIDERS: PCP Physician Assistant Medical; Referring Provider Physician Assistant Medical; Visit Provider Physician Assistant | DX: Z47.89 Encounter for other orthopedic aftercare (principal); M65.331 Trigger finger, right middle finger ==

== ENCOUNTER → 2024-01-20 03:43 | Outpatient (CLI) | payer MEDICARE, OTHER, MEDICAID, SELFPAY ==
--- NOTE | 2024-01-20 | DI.MAMMO_ITS ---
Exam(s) MAMMO SCREENING EXAM: MAMMO SCREENING CLINICAL HISTORY: SCREENING, Z12.31. TECHNIQUE: Bilateral full field digital CC and MLO mammographic images were obtained with 3D tomosyn thesis and utilizing computer aided detection (CAD). COMPARISON: Prior baseline mammogram of January 2022 was reviewed. FINDINGS: There are no new left breast findings. In the right breast there is again noted an abnormal oval density located 6 cm in from the nipple and measuring 1.5 by 0.7 cm.. Further imaging required. There are no malignant-appearing microcalcification groups in this region nor elsewhere in either samuel ast. There is no significant architectural distortion nor skin thickening-retraction. IMPRESSION: 1. No radiographic evidence of malignancy in left breast. 2. Oval noncalcified well-defined 15 x 7 mm nodule posteriorly in the right breast. Spot compression view and ultrasound recommended. BI-RADS Category 0 - Assessment Incomplete: Need additional imaging evaluation Breast Density - Category B - Scattered areas of fibroglandular density Breast density Category C or D implies that the patient has dense breast tissue. Dense breast tissue can make it harder to find cancer on a mammogram. Dense breast tissue is also associated with an incr eased risk of breast cancer. This information about the result of the mammogram report was provided to the patient to raise their awareness. Use this report when you speak with the patient about their risks for breast cancer, which includes their family history. At that time, you may recommend additional screening tests (Ultrasoun d or MRI) as these tests may add significant information. A negative radiographic report should not delay biopsy if a dominant or clinically suspicious mass is present. Up to ten percent of cancers are not identified on mammography. A negative report may reinforce clinical impression. Adenosis and dense breasts may obscure an underlying neoplasm. False positive reports average 6 to 10%. Patient will receive a letter notifying them of these results.
--- NOTE | 2024-01-20 12:51 | DI.CTLCSR_ITS ---
Exam(s) CT CHEST LUNG CANCER SCREEN EXAM: CT CHEST LUNG CANCER SCREEN CLINICAL HISTORY: SCREENING FOR LUNG CANCER, NICOTINE DEPENDENCE, F17.210. TECHNIQUE: Imaging Protocol: Low Dose Technique CONTRAST MATERIAL: None COMPARISON: CT CT CHEST LUNG CANCER SCREEN from 01/19/2022 FINDINGS: CHEST: LUNGS: There are numerous calcified granulomas throughout both lung will.. The previously describe d 5 millimeter nodule in the left upper lobe is unchanged. There are no new noncalcified nodules, co nfluent infiltrates, nor pleural effusions. There are no significant focal findings in the trachea a nd mainstem bronchi. MEDIASTINUM: There is no obvious hilar nor mediastinal adenopathy. CARDIAC: Heart size is normal. There is no pericardial effusion.The diameter of the ascending thorac ic aorta is enlarged, measuring 4.1 cm. The diameter of the aortic arch is also prominent. Diameter of the descending thoracic aorta is upper normal. OTHER: OSSEOUS: No significant osseous lesions.No fractures. Chlor due fixation plate lower cervical spine again noted. Mild loss of height of superior endplate of T4 is unchanged. No new compression fractu res.. IMPRESSION: 1. Stable appearance of the solitary noncalcified 5 millimeter nodule in the left upper lobe. There are numerous benign small calcified granulomas throughout both lung will again noted. There are no new noncalcified lung nodules. 2. No infiltrates nor pleural effusions nor intrathoracic adenopathy. Dilated ascending thoracic aor ta noted which exhibits diameter of 4.1 cm. This requires follow-up. 3. Lung RADS Cat 2S - Benign Appearance / Behavior: Nodules with a very low likelihood of becoming a clinically active cancer due to size or lack of growth Lung-RADS 1.0 CATEGORIES: Category 0 - Prior chest CT exam(s) being located for comparison. Category 1 - Annual screening in 12 months. No nodules or definitely benign nodules. Category 2 - Annual screening in 12 months. Benign appearance. Nodules with low likelihood of becomin g active cancer. Category 3 - 6-month follow-up. Probably benign. Short-term follow-up suggested. Nodules with low lik elihood of becoming active cancer. Category 4A - 3-month follow-up and CT/PET if >8 mm in size. Suspicious finding. Findings which requi re additional testing. Category 4B - Findings which require additional testing and tissue sampling. Category 4X - Category 3 or 4 nodules with additional features or imaging findings that increases the suspicion of malignancy. Modifier S- Potentially clinically significant findings (non lung cancer) RADIATION DOSE DELIVERED: 69.87mGy.cm Total DLP DATA REPOSITORY: All CT scans at this facility are submitted to the National Radiology Data Registry (NRDR) Dose Index Registry (DIR) with the [employer] (ACR). RADIATION OPTIMIZATION: All CT scans at this facility use at least one of these dose optimization te chniques: automated exposure control; mA and/or kV adjustment per patient size (includes targeted exa ms where dose is matched to clinical indication); or iterative reconstruction.
== END ==
PROVIDERS: PCP Physician Assistant Medical; Visit Provider Physician Assistant Medical
DX: F17.210 Nicotine dependence, cigarettes, uncomplicated (principal); Z12.31 Encounter for screening mammogram for malignant neoplasm of breast; Z12.2 Encounter for screening for malignant neoplasm of respiratory organs; R91.1 Solitary pulmonary nodule
CPT/HCPCS: 71271; 77063; 77067

== ENCOUNTER → 2024-01-24 00:40 | Outpatient (CLI) | payer MEDICARE, OTHER, MEDICAID, SELFPAY ==
--- NOTE | 2024-01-24 | DI.MAMMO_ITS ---
Exam(s) MG MAMMO SCREEN CALL BACK UNI US BREAST RT COMPLETE EXAM: MG MAMMO SCREEN CALL BACK UNI-RIGHT AND COMPLETE RIGHT BREAST ULTRASOUND CLINICAL HISTORY: F/U MAMMO, RT BREAST DENSITY,/NODULE,R92.8. TECHNIQUE: Unilateral RIGHT BREAST spot mammographic images obtained with 3D tomosynthesisand utiliz ing computer aided detection (CAD). . Complete RIGHT breast Ultrasound was also performed, including all 4 quadrants, the retroareolar michele on, and the ipsilateral axilla. COMPARISON: Prior mammograms were reviewed. Her baseline mammogram was in January 2022.. This additio nal imaging was performed due to findings described on the recent screening mammogram of 01/20/2024. FINDINGS: DIAGNOSTIC MAMMOGRAM: Additional mammographic views performed todaydoes not dissipate this finding. We proceeded with ultr asound... COMPLETE RIGHT BREAST ULTRASOUND: Ultrasound performed today reveals a solitary finding which is at the 7 o'clock position and correspo nds to the oval well-defined finding on the mammogram. This is a slightly lobulated solid nodule wit h neutral through transmission, with maximum measurement of 1.5 x 0.5 cm. It has appearance of a pro bable fibroadenoma.. There are no other focal findings in all 4 quadrants of the right breast. Scanning of the ipsilateral axilla reveals no significant adenopathy. IMPRESSION: 1. At the 7 o'clock position of the right breast there is a 15 x 5 mm lobulated solid well-defined n odule which has appearance of a probable fibroadenoma. Exhibits no significant change in size on the mammogram when compared to her baseline mammogram of 2 years ago (January 2022). She did not have an u ltrasound at that time. Appropriate follow-up given that this is probably a fibroadenoma is repeat right breast mammogram and ultrasound in 6 months to ensure stability. Unfortunately the mammogram of January 2022 was her 1st ma mmogram and therefore there are none more remote to compare. The patient was informed of these findings and recommendations by myself prior to leaving the departm ent today. BI-RADS Category 3 - 6 month - Probably Benign Finding: Recommend follow-up mammography and ultrasoun d in 6 months Breast Density - Category B - Scattered areas of fibroglandular density Breast density Category C or D implies that the patient has dense breast tissue. Dense breast tissue can make it harder to find cancer on a mammogram. Dense breast tissue is also associated with an incr eased risk of breast cancer. This information about the result of the mammogram report was provided to the patient to raise their awareness. Use this report when you speak with the patient about their risks for breast cancer, which includes their family history. At that time, you may recommend additional screening tests (Ultrasoun d or MRI) as these tests may add significant information. A negative radiographic report should not delay biopsy if a dominant or clinically suspicious mass is present. Up to ten percent of cancers are not identified on mammography. A negative report may reinforce clinical impression. Adenosis and dense breasts may obscure an underlying neoplasm. False positive reports average 6 to 10%. Patient will receive a letter notifying them of these results.
== END ==
PROVIDERS: PCP Physician Assistant Medical; Visit Provider Physician Assistant Medical
DX: Z12.31 Encounter for screening mammogram for malignant neoplasm of breast (principal); R92.8 Other abnormal and inconclusive findings on diagnostic imaging of breast
CPT/HCPCS: 76642; 77063; 77067

== ENCOUNTER 2024-02-19 09:14 | Day surgery (SDC) | payer MEDICARE, OTHER, MEDICAID, SELFPAY ==
[2024-02-19 09:28] VITALS: BP 153/85; PULSE 71; RESP 18; TEMP 36.4; O2SAT 96
--- NOTE | 2024-02-19 11:36 | W.PM.DSUDISC ---
Date of service: 02/19/24 Time of Service: 11:36 Discharge Plan Disposition Patient Disposition: Home Condition: Good Discharge Details Reason For Visit: Excision Dupuytren's R hand Attending Provider: Dion Lopez Primary Care Provider: Cb Florence Home Meds and New Rx's Prescriptions: New acetaminophen 500 mg tablet 1,000 mg PO TID Qty: 90 0RF tramadol 50 mg tablet 50 mg PO Q4H PRNQty: 8 0RF Continued promethazine 25 mg tablet 25 mg PO Q6H PRN bupropion HCl [Wellbutrin SR] 200 mg tablet sustained-release 12 hr 200 mg PO DAILY albuterol sulfate [Ventolin HFA] 90 mcg/actuation HFA aerosol inhaler 2 puff IH Q6H PRN (DME) Oxygen Tank See Dose Instructions .ROUTE .MEDSUPPLY Qty: 1 Rx Instructions: As directed 2LPM at night trazodone 100 mg tablet 100 mg PO QHS PRN montelukast [Singulair] 10 MG tablet 10 mg PO DAILY rosuvastatin [Crestor] 10 MG tablet 10 mg PO HS Claritin Liqui-Gel 10 MG capsule 10 mg PO DAILY baclofen 10 mg tablet 10 mg PO TID PRN Patient Comments: Pt reports 10mg, 10mg, 20mg HS 05/16/21 celecoxib [Celebrex] 200 mg capsule 200 mg PO DAILY duloxetine 60 mg capsule,delayed release(DR/EC) 60 mg PO DAILY budesonide-formoterol [Symbicort] 10.2 GM HFA aerosol inhaler 2 inh Inhalation BID Patient Comments: 03/03/18 uses only sometime gives her thrush per pt.jw lisinopril 10 MG tablet 10 mg PO DAILY Patient Comments: 03/03/18 per not only takes sometimesjw 02/08/17 pt records show 5mg/day.HE tizanidine 4 mg tablet Patient Comments: TAKE 1 TABLET BY MOUTH THREE TIMES DAILY NEEDED famotidine 40 mg tablet Patient Comments: TAKE 1 TABLET BY MOUTH ONCE DAILY FOR GERD/INDIGESTION trazodone 150 mg tablet Patient Comments: TAKE 1 TABLET BY MOUTH AT BEDTIME Spiriva Respimat 2.5 mcg/actuation mist INHALATION prochlorperazine maleate [Compazine] 10 mg tablet 10 mg PO TID PRN (Reason: nausea and vomiting) Qty: 30 0RF pregabalin 150 mg capsule 150 mg PO BID Patient Comments: TAKE 1 CAPSULE BY MOUTH TWICE DAILY Discontinued acetaminophen [Mapap Extra Strength] 500 MG tablet 1,000 mg PO QID PRNQty: 90 3RF tramadol 50 mg tablet 50 mg PO TID Patient Comments: TAKE 1 TABLET BY MOUTH THREE TIMES DAILY NEEDED FOR PAIN Discharge Instructions Additional Instructions: Dupuytren's Contracture Discharge Instructions Activity: You may use your fingers for light activity. You should limit any excessive motion or forceful gripping until the sutures have been removed. Dressings: You should keep the initial surgical dressing in place for at least 3 days. You may remove your dressings and get the wound wet after 3 days. You should keep the dressings and the wound clean at all times. You may keep the initial dressing in place until your follow-up but keep the wound covered with light gauze until the sutures are removed. Medications: - You should take Tylenol and Ibuprofen around the clock as prescribed or per chief supply chain officer's recommendations. - You have tramadol prescribed for breakthrough pain control. Take only as needed and limit use as much as possible. This may cause constipation. Follow-up: 7-10 days for wound check and suture removal. Stand Alone Forms: Jerome Antonio (U) Referrals: Dion Lopez MD [ [facility] STAFF PHYSICIAN] - 03/02/24 1:00 pm Activity:: Activity as Tolerated Remove Dressings/Wound Care:: Do Not Remove Shower/Bathe:: Cover Diet:: As Tolerated Discharge Orders Discharge Orders: Discharge Order (Routine); Ordered 02/19/24 Ordered By: Joshua Sabillon DS: Diagnosis Discharge Diagnosis (1) Dupuytren's contracture of right hand: Status: Acute
[2024-02-19] MEDS: Sodium Bicarbonate 50 MEQ/50 ML VIAL (12:50)
[2024-02-19] MEDS: Lidocaine 1% Multi-Dose W/EPI 1/100,000 50 ML VIAL (12:50)
[2024-02-19 13:35] VITALS: BP 147/82; PULSE 66; RESP 18; TEMP 36.2; O2SAT 94
--- NOTE | 2024-02-19 14:09 | W.PM.OP ---
Date of service: 02/19/24 Time of Service: 13:00 Operative Note Operative Note DATE OF PROCEDURE: 02/19/24 PRE-OP DIAGNOSIS: Dupuytren's Contracture - Right Hand POST-OP DIAGNOSIS: same PROCEDURE: Partial palmar fasciectomy?right hand SURGEON: Dion Lopez ANESTHESIA TYPE: Local By Surgeon Refer to Anesthesia Record ESTIMATED BLOOD LOSS: 5 COMPLICATIONS: None Patient was transported to: same day Patient's condition: stable Indications: Heather is a 63-year-old female who is status post right middle finger trigger release. Unfortunate, after her surgery she started developing contracture about the right hand which is clearly Dupuytren's contracture and worsened. The nodularity and contracture interfere with her daily activities. It is primarily about the middle finger ray but also extending over the ring finger ray. Given the persistent of the symptoms she desired this to be removed. Therefore I offered partial palmar fasciectomy. I reviewed the risk to include bleeding, infection, pain, stiffness, recurrence, damage to nerves and vessels. Despite these risk, she elected to proceed. Findings: There was a dense central cord about the middle finger ray with adhesions to the underlying xuan region. There is also some natatory contributions to a ring finger central cord. This pathologic tissue was removed. Procedure Description: Poppy was greeted in the preoperative holding area. Her identity was confirmed the correct site identified and marked. The consent was reviewed the patient and signed. History and physical was updated. She was taken to the operating room placed in the supine position with the right hand on a hand table. The right hand was then prepped ChloraPrep draped in a standard fashion. No antibiotics were used given these clean elective nature of this case. A timeout was performed for safe surgery. A incision was drawn out on the skin within the distal palmar flexion crease and then extending obliquely back towards the proximal hand overlying the middle finger central cord as well as a portion of the ring finger central cord. This area is then anesthetized with 1% lidocaine with epinephrine, buffered with sodium bicarbonate. Once that set up, surgery began. The skin was incised sharply through the skin only. Deep dissection was carried down through with tenotomy scissors. The scissors were used to free the overlying skin from the underlying cord. The cord was identified proximally where was transected and elevated out of the wound. This cord was quite dense and adherent at the level of the A1 xuan. It was removed in whole such that the flexor tendon was these identifiable and the A1 xuan was noticed to be released. There is some natatory contributions over to the ring finger. These were transected. I then identified the central cord about the ring finger ray. This was elevated from the skin overlying and the deep tissues underneath. It was transected proximally and removed. The wound was then thoroughly irrigated. There was no significant bleeding. The skin was closed with interrupted 4-0 nylon sutures. The wound was dressed with Xeroform, 4 x 4's, conformer dressing. A short arm splint was applied with the fingers in extension.
== END 2024-02-19 13:55 | disposition home or self-care (01) ==
PROVIDERS: PCP Physician Assistant Medical; Visit Provider Student in an Organized Health Care Education/Training Program
PROC: (CPT 26123; principal; 2024-02-19 13:00)
DX: M72.0 Palmar fascial fibromatosis [Dupuytren] (principal)
CPT/HCPCS: 26123; J2004

== ENCOUNTER → 2024-03-02 12:58 | Outpatient (BNVA) | payer MEDICARE, OTHER, MEDICAID, SELFPAY | PROVIDERS: PCP Physician Assistant Medical; Referring Provider Physician Assistant Medical; Visit Provider Student in an Organized Health Care Education/Training Program | DX: Z47.89 Encounter for other orthopedic aftercare (principal); M79.641 Pain in right hand ==

== ENCOUNTER → 2024-03-09 09:44 | Outpatient (BNVA) | payer MEDICARE, OTHER, MEDICAID, SELFPAY | PROVIDERS: PCP Physician Assistant Medical; Visit Provider Student in an Organized Health Care Education/Training Program | DX: Z47.89 Encounter for other orthopedic aftercare (principal) ==

== ENCOUNTER 2024-03-17 18:21 | Outpatient (REF) | payer MEDICARE, OTHER, MEDICAID, SELFPAY ==
[2024-03-17 15:32] LABS: Abs Immature Grans 0.02 10^3/uL (0.0-0.06); Absolute Basophil Count 0.06 10^3/uL (0.0-0.2); Absolute Eosinophil Count 0.34 10^3/uL (0.0-0.7); Absolute Lymphocyte Count 3.18 10^3/uL (1.2-3.4); Absolute Monocyte Count 0.53 10^3/uL (0.1-0.8); Absolute Neutrophil Count 4.96 10^3/uL (1.2-6.7); Basophils % 0.7 %; Eosinophils % 3.7 %; HGB 12.3 g/dL (11.2-15.7); Immature Grans % 0.2 %; MCH 30.1 pg (27.0-33.0); MCHC 33.2 % (32.0-36.0); MCV 91 fL (80-95); MPV 11.2 fL (8.0-11.0); Monocytes % 5.8 %; Neutrophils % 54.6 %; Platelet Count 188 10^3/uL (130-400); RBC 4.09 10^6/uL (3.93-5.22); WBC 9.09 10^3/uL (4.4-10.8)
[2024-03-17 16:48] LABS: ALT 23 U/L (14-59); AST 15 U/L (15-37); Albumin 3.6 g/dL (3.4-5.0); Alkaline Phosphatase 62 U/L (46-116); Anion Gap 6.4 mmol/L (3-11); BUN 24 mg/dL (7-18); Bilirubin, Total 0.27 mg/dL (0.2-1.0); CO2 29.6 mmol/L (21.0-32.0); CREATININE 1.2 mg/dL (0.55-1.02); Calcium 9.6 mg/dL (8.5-10.1); Calculated LDL 119 mg/dL (<100); Chloride 105 mmol/L (98-107); Cholesterol 197 mg/dL (<200); Glucose 94 mg/dL (74-106); HDL Cholesterol 49 mg/dL (40-60); Potassium 4.2 mmol/L (3.5-5.1); Sodium 141 mmol/L (136-145); Total Protein 6.8 g/dL (6.4-8.2); Triglyceride 146 mg/dL (<150)
--- OUTSIDE RECORDS SUMMARY | 2024-03-17 18:25 | XMS_ITS | Encounter Summary ---
Author Organization [facility] [place] [address] Care Team Providers Care Reference Librarian Name Role Phone Cb Florence Primary Care Provider [phone] Encounter Details Date Type Department Care Team (Latest Contact Info) Description 07/19/2022 4:20 PM EST Office Visit [facility] [place] [address] Rios Acuna MD [facility] [place] [address] s/p Right L4-5 hemilaminectomy and L4-S1 instrumented fusion on 07/11/21 (Dr. Acuna) Social History Tobacco Use Types Packs/Day Years Used Date Smoking Tobacco: Former Cigarettes 1 20 Smokeless Tobacco: Never Alcohol Use Standard Drinks/Week Comments No 0 (1 standard drink = 0.6 oz pur e alcohol) quit 2011 Sex and Gender Information Value Date Recorded Sex Assigned at Not on file Gender Identity Not on file Sexual Orientation Not on file documented as of this encounter Progress Notes * Melissa Pardo LNA - 07/19/2022 4:20 PM EST Reason for today's visit/goal for visit in patient's words: follow up, right L4- L5 hemilami with complete facetectomy, [id number] Patient accompanied by: [employer] Handicapper or pocket talker required? no Pain Score ( scale of 0-10) Today: 7 In past 7 days Best: 5 Worst: 8 Weight: 175lb Miranda: 5'0 * Rios Acuna MD - 07/19/2022 4:20 PM EST Date of surgery: 07/11/2021 ?? Surgery: Revision right L4-L5 hemilaminectomy with transpedicular discectomy and L4-S1 posterolateral instrumented fusion using right iliac crest bone graft Interval history: Ms. Mclaughlin returns today about 1 year out from surgery. She is doing fairly well.She continues to have back pain with prolonged sitting or prolonged standing with some radiation toher right buttock. She had some intermittent numbness and tingling in her right lower extremity. The severe right lower extremity pain that she had before surgery is resolved. She has been doing physical therapy making some progress. She is currently taking tramadol, tizanidine, Lyrica, they do nothelp much. She has not had any recent injections. Physical exam General: Patient is comfortable, no acute distress Back: She has a well-healed incision. Her back is tender to palpation in the midline. She can flex 80 degrees and extend 5 degrees. Neurological exam: She has 5/5 strength of all lower extreme motors. She has mildly altered sensation in her right lateral thigh. Hip exam: She is tender palpation over her right greater trochanter. Imaging: AP and lateral x-rays of the lumbar spine from 08/02 were reviewed. These demonstrate no change in line of the spine or the hardware. There is nothing to suggest hardware failure or loosening. There is mature bone graft present bilaterally. Assessment/plan: Ms. Mclaughlin is 1 year out from her lumbar decompression and fusion, and she has made some progress since I saw her last. She continues to have back pain. I encouraged her to continue with physical therapy. I suggested she could try ibuprofen if tolerated. I suggested that she could see a pain provider if she is interested in injections. She indicated she may call Dr. Hartman in [facility]. She has seen him in the past. If she wants to see one of our pain providers, she can call and I can make that referral. I will follow-up with her on an as-needed basis. documented in this encounter Plan of Treatment Not on file documented as of this encounter Visit Diagnoses Diagnosis s/p Right L4-5 hemilaminectomy and L4-S1 instrumented fusion on 07/11/21 (Dr. Acuna) Arthrodesis status documented in this encounter Care Teams Reference Librarian Relationship Specialty Start Date End Date Cb Florence PA [address] [place] [address] PCP - General Family Medicine 04/08/20 documented as of this encounter
--- OUTSIDE RECORDS SUMMARY | 2024-03-17 18:25 | XMS_ITS | Encounter Summary ---
Author Organization [facility] Address [facility] [place] [address] Care Team Providers Care Biology Lecturer Name Role Phone Cb Florence Primary Care Provider [phone]- [phone] Encounter Details Date Type Department Care Team (Latest Contact Info) Description 07/19/2022 3:16 PM EST - 07/19/2022 11:59 PM [facility] Hospital Encounter XRay at [address] [place] [address] Rios Acuna MD [facility] [place] [address] s/p Right L4-5 hemilaminectomy and L4-S1 instrumented fusion on 07/11/21 (Dr. Acuna) Discharge Disposition: Home Social History Tobacco Use Types Packs/Day Years [...] on file documented as of this encounter Medications at Time of Discharge Medication Sig Dispensed Refills Start Date End Date tiZANidine (Zanaflex) 4 mg Tablet 4 mg every 8 hours as needed. 07/16/2022 acetaminophen (Tylenol) 500 mg Tablet Take 2 tablets by mouth every 6 hours. 0 07/14/[address] (Cymbalta) 30 mg Capsule, Delayed Release(E.C.) TAKE 1 CAPSULE BY MOUTH ONCE DAILY 03/17/2021 Narcan 4 mg/actuation [place], Non-Aerosol ADMINISTER A SINGLE SPRAY INTRANASALLY INTO ONE NOSTRIL. CALL 911. MAY REPEAT X1. 01/11/2021 pregabalin (LYRICA) 150 mg Capsule 2 times daily. 05/01/2021 triamcinolone (Kenalog) 0.1 % Ointment as needed. 01/11/2021 buPROPion SR (Wellbutrin SR) 200 mg tablet sustained-release 12 hr daily. 05/17/2020 fluconazole (Diflucan) 150 mg Tablet as needed. 05/18/2020 lisinopriL (Prinivil;Zestril) 10 mg Tablet daily. 03/14/2020 traZODone (Desyrel) 50 mg Tablet nightly. 05/14/2020 Miscellaneous Medical Supply MiscIndications:PAH (pulmonary artery hypertension) Face mask for nocturnal O2, and appropriate accessories. 1 each 04/18/2020 rosuvastatin (CRESTOR) 10 mg Tablet Take 10 mg by mouth nightly. prochlorperazine (COMPAZINE) 10 mg Tablet Take 10 mg by mouth every 8 hours as needed for Nausea. montelukast (SINGULAIR) 10 mg Tablet Take 10 mg by mouth every morning. benzonatate (TESSALON) 100 mg Capsule Take 100 mg by mouth 3 times daily as needed for Cough. guaiFENesin 600 mg Tablet Extended Release 12hrIndications:COPD, moderate Take 1 tablet by mouth 2 times daily. 60 tablet 11 10/03/2016 SYMBICORT 160-4.5 mcg/actuation HFA Aerosol Inhaler Inhale 2 puffs into the lungs 2 times daily. 05/02/2016 OXYGEN-AIR DELIVERY SYSTEMS ( CLASSIC OXYGEN CONCENTRATOR MISC) 3 L by Misc.(Non-Drug; Combo Route) route nightly. diphenoxylate-atropine (LOMOTIL) 2.5-0.025 mg Tablet Take 1 tablet by mouth 4 times daily. DO NOT restarted this unless you are having diarrhea. 120 tablet 7 06/11/2014 albuterol (PROVENTIL HFA;VENTOLIN HFA) 90 mcg/actuation HFA Aerosol Inhaler Inhale 2 puffs into the lungs every 4 hours as needed. Use with spacer Inhalational Spacing Device Spcr 2 puffs by [facility] [place].(Non-Drug; Combo Route) route daily. promethazine (PHENERGAN) 25 mg tablet Take 25 mg by mouth every 6 hours as needed. MULTIVITAMIN ORAL Take 2 tablets by mouth daily. ASCORBATE CALCIUM (VITAMIN C ORAL) Take 1 tablet by mouth daily. oxyCODONE (Roxicodone) 5 mg Tablet Take 0.5-1 tablets by mouth every 6 hours as needed for Pain. Max of 5 tabs in 24 hrs; less as able. 25 tablet 08/03/2021 Belsomra 10 mg Tablet TAKE 1 TABLET BY MOUTH ONCE DAILY AT BEDTIME 04/01/2021 diazePAM (Valium) 5 mg Tablet TAKE 1 TABLET BY MOUTH TWICE DAILY NEEDED FOR PAIN 01/12/2021 OneTouch Ultra Blue Test Strip Strip USE 1 STRIP TO CHECK GLUCOSE ONCE DAILY DIRECTED 04/11/2020 Chantix Starting Month Box 0.5 mg (11)- 1 mg (42) Tablets, Dose Pack TAKE 1 TABLET BY MOUTH IN MORNING WITH FOOD FOR 3 DAYS THEN INCREASE TO 1 TABLET BY MOUTH TWICE DAILY WITH FOOD THEREAFTER DIRECTED ON PA 04/28/2020 baclofen (LIORESAL) 10 mg Tablet Take 10 mg by mouth 3 times daily. Takes 20mg at night 06/23/2016 albuterol (PROVENTIL) 2.5 mg /3 mL (0.083 %) Solution for Nebulization Take 2.5 mg by nebulization every 4 hours as needed for Wheezing. chlorpheniramine (CHLOR-TRIMETON) 4 mg Tablet Take 4 mg by mouth every 6 hours as needed for Allergies. cholecalciferol, Vitamin D3, 400 unit tablet Take 400 Units by mouth daily. loratadine (CLARITIN) 10 mg tabletIndications:Mult iple nodules of lung Take 10 mg by mouth daily. documented as of this encounter Plan of Treatment Not on file documented as of this encounter Procedures Procedure Name Priority Date/Time Associated Diagnosis Comments XR LUMBAR SPINE 2 OR 3 VIEWS Routine 07/19/2022 3:45 PM EST s/p Right L4-5 hemilaminectomy and L4-S1 instrumented fusion on 07/11/21 (Dr. Acuna) documented in this encounter Results * XR Lumbar Spine 2 Or 3 Views (Generic) (07/19/2022 3:45 PM EST) Anatomical Region Laterality Modality L-spine N/A Digital Radiogra phy Impressions 07/20/2022 1:52 PM EST Lower lumbar instrumented fusion without complication. Thank you for letting us participate in the care of this patient. ??If you are a health care provider and have any questions regarding this report, please contact the number below. ??For patients who have questions please contact the health home care aide that requested your imaging first. ? Narrative 07/20/2022 1:52 PM EST EXAMINATION: XR LUMBAR SPINE 2 OR 3 VIEWS (GENERIC) CLINICAL HISTORY: s/p fusion TECHNIQUE: 2 views of the lumbar spine COMPARISON: Lumbar radiograph 10/01/2021. FINDINGS: Status post posterior instrumented fusion of L4-S1 without screw fracture or change in hardware position. Associated bone graft. A 3 mm anterolisthesis at L4-L5 and 7 mm anterolisthesis at L5-S1 are similar to comparison radiographs. Slight levoconvex lumbar curvature. No new spondylolisthesis or spinal curvature. Vertebral body heights are normal. Mild disc space height loss. Sacroiliac joint degenerative changes including sclerosis and osteophytes. Aortic calcification. Procedure Note Viri Richter MD - 07/20/2022 EXAMINATION: XR LUMBAR SPINE 2 OR 3 VIEWS (GENERIC) CLINICAL HISTORY: s/p fusion TECHNIQUE: 2 views of the lumbar spine COMPARISON: Lumbar radiograph 10/01/2021. FINDINGS: Status post posterior instrumented fusion of L4-S1 without screw fractureor change in hardware position. Associated bone graft. A 3 mm anterolisthesisat L4-L5 and 7 mm anterolisthesis at L5-S1 are similar to comparisonradiographs. Slight levoconvex lumbar curvature. No new spondylolisthesis or spinal curvature. Vertebral body heights are normal. Mild disc space heightloss. Sacroiliac joint degenerative changes including sclerosis andosteophytes. Aortic calcification. IMPRESSION Lower lumbar instrumented fusion without complication. Thank you for letting us participate in the care of this patient. If youare a health care provider and have any questions regarding this report,please contact the number below. For patients who have questions please contactthe health home care aide that requested your imaging first. Rios Acuna MD IMG DX ORDERABLES documented in this encounter Visit Diagnoses Diagnosis s/p Right L4-5 hemilaminectomy and L4-S1 instrumented fusion on 07/11/21 (Dr. Acuna) Arthrodesis status documented in this encounter Care Teams Biology Lecturer Relationship Specialty Start Date End Date Cb Florence PA [address] [place] [address] PCP - General Family Medicine 04/08/20 documented as of this encounter
--- OUTSIDE RECORDS SUMMARY | 2024-03-17 18:25 | XMS_ITS | Continuity of Care Document ---
Author Organization [facility] Address [address] [place] [address] Care Team Providers Care Webmethods Consultant Name Role Phone DEMAR RABAGO PA-C Primary Care Ronnie henderson Encounter LTTL_SC FIN NBR [id number] Date(s): 06/05/23 - 06/05/[address] [address] Encounter Diagnosis Encounter for other administrative examinations(Final) - Discharge Disposition: Home or Self Care Attending Physician: Katia Thao APRN Admitting Physician: Katia Thao APRN Allergies, Adverse Reactions, Alerts Substance Reaction Severity Status albuterol Moderate Active Assessment and Plan Future Scheduled Tests Radiology* XR Ankle Complete 3+ Views Right 06/04/23 Medications buPROPion 200 mg/12 hours (SR) oral tablet, extended release 90 EA, 0 Refill(s), TAKE 1 TABLET BY MOUTH ONCE DAILY, 0 Refill(s) Start Date: 06/05/23 Status: Ordered celecoxib 200 mg oral capsule 200 mg = 1 cap, Oral, Daily, Take once daily for 14 days - in addition to 200mg celebrex capsules once daily, # 14 cap, 0 Refill(s), Pharmacy: [id number] Start Date: 05/03/23 Stop Date: 05/17/23 Status: Ordered DULoxetine 60 mg oral delayed release capsule 90 EA, 0 Refill(s), TAKE 1 CAPSULE BY MOUTH ONCE DAILY, 0 Refill(s) Start Date: 06/05/23 Status: Ordered famotidine 20 mg oral tablet 90 EA, 0 Refill(s), TAKE 1 TABLET BY MOUTH ONCE DAILY FOR GERD/INDIGESTION, 0 Refill(s) Start Date: 06/05/23 Status: Ordered famotidine 40 mg oral tablet 90 EA, 0 Refill(s), TAKE 1 TABLET BY MOUTH ONCE DAILY FOR GERD/INDIGESTION, 0 Refill(s) Start Date: 06/05/23 Status: Ordered lisinopril 10 mg oral tablet 90 EA, 0 Refill(s), TAKE 1 TABLET BY MOUTH ONCE DAILY, 0 Refill(s) Start Date: 06/05/23 Status: Ordered montelukast 10 mg oral tablet 90 EA, 0 Refill(s), TAKE 1 TABLET BY MOUTH ONCE DAILY, 0 Refill(s) Start Date: 06/05/23 Status: Ordered pregabalin 150 mg oral capsule 180 EA, 0 Refill(s), TAKE 1 CAPSULE BY MOUTH TWICE DAILY, 0 Refill(s) Start Date: 06/05/23 Status: Ordered rosuvastatin 10 mg oral tablet 90 EA, 0 Refill(s), TAKE 1 TABLET BY MOUTH ONCE DAILY AT NIGHT, 0 Refill(s) Start Date: 06/05/23 Status: Ordered tiZANidine 4 mg oral tablet 90 EA, 0 Refill(s), TAKE 1 TABLET BY MOUTH THREE TIMES DAILY NEEDED, 0 Refill(s) Start Date: 06/05/23 Status: Ordered traMADol 50 mg oral tablet 90 EA, 0 Refill(s), TAKE 1 TABLET BY MOUTH THREE TIMES DAILY NEEDED, 0 Refill(s) Start Date: 06/05/23 Status: Ordered traZODone 150 mg oral tablet 90 EA, 0 Refill(s), TAKE 1 TABLET BY MOUTH AT BEDTIME, 0 Refill(s) Start Date: 06/05/23 Status: Ordered Social History Social History Type Response Tobacco Current everyday tob acco user Tobacco Use:. 30 per day. Sex Patient Care team information Care Team Personnel Name: DEMAR RABAGO PA-C Position: No Access Member Role: Primary Care Physician Address: Address: [place] [address]- Care Team Related Persons Name: LIBERTY PINO Address: Home [address] [place] [phone] [facility] Name: DANETTE PATEL Address: Home [address] [place] [address] Name: DANETTE PATEL Address: Home [address] [place] [phone] [facility]
--- OUTSIDE RECORDS SUMMARY | 2024-03-17 18:25 | XMS_ITS | Continuity of Care Document ---
Author Organization [facility] Address [address] [place] [phone] Care Team Providers Care Roll Weigher Name Role Phone CARMELLA AGUILERA D.O. Primary Care Physician Unavailable Encounter LTTL_MI FIN NBR [id number] Date(s): 05/17/22 - 02/04/[address] [address]- Encounter Diagnosis Arthrodesis status(Final) - Discharge Disposition: Home-No Follow Up Attending Physician: Virgie Webber Referring Physician: EMILE GONZALEZ Physical therapy Progress note * Event Display: Physical Therapy Progress Note * Event Display: Physical Therapy Progress Note Patient Care team information Care Team Related Persons Name: LIBERTY PINO Address: Home [address] [place] [id number] [place]
--- OUTSIDE RECORDS SUMMARY | 2024-03-17 18:25 | XMS_ITS | Continuity of Care Document ---
Author Organization [facility] Ambulatory Clinics Address [address] [place] [address] Care Team Providers Care Bankruptcy Law Specialist Name Role Phone DEMAR RABAGO PA-C Primary Care Ronnie henderson Encounter [facility] NBR [id number] Date(s): 06/05/23 - 06/05/23 [facility] Ambulatory Clinics [address] [place], [place] [address] Encounter Diagnosis Osteoarthritis of right knee(Discharge Diagnosis) - 06/05/23 Discharge Disposition: Home or Self Care Attending Physician: Katia Thao APRN Referring Physician: Sanaz Diaz PA-C Allergies, Adverse Reactions, Alerts Substance Reaction Severity [...] daily, # 14 cap, 0 Refill(s), Pharmacy: [id number] Start Date: 05/03/23 Stop Date: 05/17/23 Status: [...] 0 Refill(s) Start Date: 06/05/23 Status: Ordered Vital Signs Most recent to oldest [Reference Range]: 1 Peripheral Pulse Rate [60-100 bpm] 81 bp m (06/05/23 7:46 AM) Blood Pressure [90-140/60-90 mmHg] 124/8 2mmHg (06/05/23 7:46 AM) Mean Arterial Pressure, Cuff [65-140 mmH g] 96 mmHg (06/05/23 7:46 AM) Weight 84.64 kg (06/05/23 7:46 AM) Weight Measured (lbs) 186.599 lb (06/05/23 7:46 AM) [place] Body Weight Calculated 45.5 kg (06/05/23 7:46 AM) Height 152.40 cm (06/05/23 7:46 AM) Height/Length Measured (inches) 60 inch (06/05/23 7:46 AM) BSA Measured 1.89 m2 (06/05/23 7:46 AM) Body Mass Index 36.44 kg/m2 (06/05/23 7:46 AM) Social History Social History Type Response Tobacco Current everyday tob acco user Tobacco Use:. 30 per day. Sex Physician Outpatient Note * Katia Thao, ART MODEL: PERFORM Event Display: Office Clinic Note Physician Authored Date: [id number] REBECCAQUINCY SOTOGERMÁN Del Cid :[id number] Age:62 years Sex:Female Visit Date:06/05/2023 Primary Care Physician: GEM CARRILLO, DEMAR VASQUEZ Chief Complaint Right Knee Pain History of Present Illness Heather??is a 62-year-old female, was evaluated in urgent care on 05/03/2023,??2 weeks prior to that she had had a trip forward onto her right lower extremity, she also??at that time had tweaked her lowback and her??left shoulder.?? X-rays were obtained,??she was told to follow-up with orthopedics should her symptoms not relent.?? She is here today for follow-up of her right knee??mostly.?? She is a new patient to our clinic.?? She has been feeling in her normal state of health.?? Taking celebrexand tylenol.?? On O2 at night, smoker. ?? Right knee did not bother really until this slip and fall, she does have a history of right knee arthroscopy and Dr Lopez.?? At that time it was popping and grinding. ?? Now she is having a burning pain, numbness anterior thigh and to ankle, my leg goes dumb, weakness as well-this chronic.?? The knee pain to ankle is more intense. The knee is popping and medial pain, moves more than it should,?? standing causes more pain, stairs are difficult, pivoting causes a pop. ?? 2020 had an MRI right neural foraminal narrowing, is seen at [facility] Dr Acuna, has not seen them recently. Review of Systems Constitutional:?No??fevers,?No??chills,?No??sweats Eye:?No??recent visual problems ENT:?No??ear pain,?No??nasal congestion,?No??sore throat Respiratory:?No??shortness of breath,?No??cough Cardiovascular:?No??Chest pain,?No??palpitations,?No??syncope Gastrointestinal:?Nonausea,?No??vomiting,?No??diarrhea Genitourinary:?No??hematuria Vladislav/Lymph:?No??bruising tendency,?No??swollen lymph glands Endocrine:?No??excessive thirst,??No??excessive hunger Musculoskeletal:??No??back pain,??No??neck pain,??Positive for??joint pain,??No??muscle pain,??No??decreased range of motion Integumentary:?No??rash,?No??pruritus,?No??abrasions Neurologic: Alert & oriented X 4 Psychiatric:?No??anxiety,?No??depression Physical Exam Vitals & Measurements HR:??81??(Peripheral)?? BP:??124/82?? SpO2:??91%?? HT:??152.40??cm?? WT:??84.64??kg?? BMI:??36.44?? BSA:??1.89?? General: ??appears stated age, well dressed HEENT: no loss of hearing, normocephalic, EOMs intact Neuro: ??grossly intact, if indicated see specific neurology exam Psych: ??alert and oriented to place and time, pleasant, cooperative Dermatology: ??no gross open areas of skin-see exam of limb for specifics Lymphatics: ??no lymphedema of affected limb Gait: Normal Vascular: ??pulses distally of limb are 2+?? Musculoskeletal: Right knee: To inspection there are well-healed prior arthroscopy portals, there is slight swelling in the popliteal fossa, no redness no erythema. ??She is able to fully extend she is able to flex healed but??varus valgus stress with solid endpoint anterior drawer with solid endpoint there is tenderness to palpation of the medial joint line less with the lateral joint line patellar prehension and grind are negative. ??Shea's test is negative. Procedure Risks and benefit of injection are discussed with the patient to include but not limited to steroidflare, fat atrophy, infection, neurovascular injury, incomplete resolutions of their symptoms, theygive verbal consent, the right anterior??lateral joint space is prepped with alcohol x3, 3 mL's of 1% lidocaine plain and 40 mg Kenalog sterilely injected intra-articularly they tolerated the procedure very well and a sterile dressing is applied. ?? I did asked that they do not take a shower or bath this evening to try to reduce risk of infection, they may shower and bathe in 24 hours. ??Bandage to remain in place for the next 12 hours at least. Assessment/Plan 1.??Osteoarthritis of right knee??M17.11 [facility] which shows medial joint space narrowing of the femoral??tibial joint,??PFJ with very small osteophytes, no acute change such as fracture ?? Heather and I spent 30 minutes together today with 20 those minutes spent reviewing her injury, where she is at about 6 weeks later, the fact that she is still having some soreness and achiness, shedoes seem to have some underlying??stenotic symptoms of this right leg which seems to be chronic, Idid discuss with her that possibly she should follow-up at [facility] for that.?? In any rate??after physical exam today I think this is likely an arthritic exacerbation, we discussed continuing Celebrex and??Tylenol as well as icing and it should relent, or we could try CSI to see if we could get it along. ??She did decide on CSI today, hopefully this will provide symptomatic benefit, if she is not quite a lot better in 2 weeks she is encouraged to call and likely I would consider MRI to look for possible torn cartilage although she does have??fairly degenerative knee on x-ray.?? Viscosupplementation could also be considered. Orders: XR Ankle Complete 3+ Views Right, 06/04/23, Routine, Reason: ankle pain, Transport Mode: Ambulatory, Ankle pain, right, ABN Status: Not Required Problem List/Past Medical History Ongoing No qualifying data Historical No qualifying data Medications CeleBREX celecoxib 200 mg oral capsule, 200 mg= 1 cap, Oral, Daily Crestor, 10 mg, Oral, Daily Cymbalta, 60 mg, Oral, Daily lisinopril, 10 mg, Oral, Daily tiZANidine, 4 mg, Oral, every 8 hr, PRN traMADol, 50 mg, Oral, every 8 hr, PRN traZODone, 150 mg, Oral, every night at bedtime Wellbutrin, See Instructions Allergies albuterol Social History Alcohol Current, Beer, Wine, Liquor, 1-2 times per month Electronic Cigarette/Vaping Electronic Cigarette Use: Never. Substance Use Never Tobacco Current everyday tobacco user Tobacco Use:. 30 per day. Health Maintenance ?Pending??(in the next year) ?Due?Adult Wellness Exam due?06/05/23?and every 1?years ?Alcohol Use Screening due?06/05/23?and every 1?years ?Annual Wellness Visit (Medicare) due?06/05/23?and every 1?years ?Breast Cancer Screening due?06/05/23?and every 2?years ?Cervical Cancer Screening due?06/05/23?Variable frequency ?Colorectal Cancer Screening due?06/05/23?Variable frequency ?Depression Screening due?06/05/23?and every 1?years ?Glaucoma Screening due?06/05/23?and every 1?years ?HIV Screening due?06/05/23?and every 1?years ?Hepatitis C Screening due?06/05/23?One-time only ?Initial Preventative Physical Examination (Medicare) due?06/05/23?One-time only ?Lipid Screening due?06/05/23?and every 5?years ?Satisfied??(in the past 1 year) ?Satisfied?Body Mass Index on?06/05/23.?Satisfied by Caitlin Scott ?? Electronically Signed on 06/05/23 08:14 AM Katia Thao APRN Patient Care team information Care Team Personnel Name: DEMAR RABAGO PA-C Position: No Access Member Role: Primary Care Physician Address: Address: [place] [address]- Care Team Related Persons Name: LIBERTY PINO Address: Home [address] Name: DANETTE PATEL Address: Home [address] Name: DANETTE PATEL Address: Home [address]
--- OUTSIDE RECORDS SUMMARY | 2024-03-17 18:25 | XMS_ITS | Clinical Summary ---
Author Organization [facility] Address [facility] [place] [address] Care Team Providers Care Waste Reduction Coordinator Name Role Phone Cb Florence Primary Care Provider [phone] Allergies Active Allergy Reactions Criticality Noted Date Comments Albuterol Other (See Comments) 11/09/2011 Liquid--Per patient, she gets hyperactivity. Pneumococcal Vaccine Other (See Comments) High 11/18 Cold/Flu like symptoms Medications Medication Sig Dispensed Refills Start Date End Date Status loratadine (CLARITIN) 10 mg tabletIndications:M ultiple nodules of lung Take 10 mg by mouth daily. Active ASCORBATE CALCIUM (VITAMIN C ORAL) Take 1 tablet by mouth daily. Active MULTIVITAMIN ORAL Take 2 tablets by mouth daily. Active cholecalciferol, Vitamin D3, 400 unit tablet Take 400 Units by mouth daily. Active promethazine (PHENERGAN) 25 mg tablet Take 25 mg by mouth every 6 hours as needed. Active Inhalational Spacing Device Spcr 2 puffs by [facility].(Non-Drug; Combo Route) route daily. Active albuterol (PROVENTIL HFA;VENTOLIN HFA) 90 mcg/actuation HFA Aerosol Inhaler Inhale 2 puffs into the lungs every 4 hours as needed. Use with spacer Active diphenoxylate-atrop ine (LOMOTIL) 2.5-0.025 mg Tablet Take 1 tablet by mouth 4 times daily. DO NOT restarted this unless you are having diarrhea. 120 tablet 7 06/11/2014 Active Additional Information Patient taking differently:1 tablet OralPRN, DO NOT restarted this unless you are having diarrhea., Reported on 05/16/2016 OXYGEN-AIR DELIVERY SYSTEMS ( CLASSIC OXYGEN CONCENTRATOR MISC) 3 L by [facility].(Non-Drug; Combo Route) route nightly. Active chlorpheniramine (CHLOR-TRIMETON) 4 mg Tablet Take 4 mg by mouth every 6 hours as needed for Allergies. Active albuterol (PROVENTIL) 2.5 mg /3 mL (0.083 %) Solution for Nebulization Take 2.5 mg by nebulization every 4 hours as needed for Wheezing. Active SYMBICORT 160-4.5 mcg/actuation HFA Aerosol Inhaler Inhale 2 puffs into the lungs 2 times daily. 05/02/2016 Active baclofen (LIORESAL) 10 mg Tablet Take 10 mg by mouth 3 times daily. 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 60 tablet 11 10/03/2016 Active benzonatate (TESSALON) 100 mg Capsule Take 100 mg by mouth 3 times daily as needed for Cough. Active rosuvastatin (CRESTOR) 10 mg Tablet Take 10 mg by mouth nightly. Active prochlorperazine (COMPAZINE) 10 mg Tablet Take 10 mg by mouth every 8 hours as needed for Nausea. Active montelukast (SINGULAIR) 10 mg Tablet Take 10 mg by mouth every morning. Active Miscellaneous Medical Supply MiscIndications:PAH (pulmonary artery hypertension) Face mask for nocturnal O2, and appropriate accessories. 1 each 04/18/2020 Active OneTouch Ultra Blue Test Strip Strip USE 1 STRIP TO CHECK GLUCOSE ONCE DAILY DIRECTED 04/11/2020 Active buPROPion SR (Wellbutrin SR) 200 mg tablet sustained-release 12 hr daily. 05/17/2020 Active fluconazole (Diflucan) 150 mg Tablet as needed. 05/18/2020 Active lisinopriL (Prinivil;Zestril) 10 mg Tablet daily. 03/14/2020 Active traZODone (Desyrel) 50 mg Tablet nightly. 05/14/2020 Active Chantix Starting Month Box 0.5 mg (11)- 1 mg (42) Tablets, Dose Pack TAKE 1 TABLET BY MOUTH IN MORNING WITH FOOD FOR 3 DAYS THEN INCREASE TO 1 TABLET BY MOUTH TWICE DAILY WITH FOOD THEREAFTER DIRECTED ON PA 04/28/2020 Active diazePAM (Valium) 5 mg Tablet TAKE 1 TABLET BY MOUTH TWICE DAILY NEEDED FOR PAIN 01/12/[address] (Cymbalta) 30 mg Capsule, Delayed Release(E.C.) TAKE 1 CAPSULE BY MOUTH ONCE DAILY 03/17/2021 Active Narcan 4 mg/actuation [place], Non-Aerosol ADMINISTER A SINGLE SPRAY INTRANASALLY INTO ONE NOSTRIL. CALL 911. MAY REPEAT X1. 01/11/2021 Active pregabalin (LYRICA) 150 mg Capsule 2 times daily. 05/01/2021 Active Belsomra 10 mg Tablet TAKE 1 TABLET BY MOUTH ONCE DAILY AT BEDTIME 04/01/2021 Active triamcinolone (Kenalog) 0.1 % Ointment as needed. 01/11/2021 Active acetaminophen (Tylenol) 500 mg Tablet Take 2 tablets by mouth every 6 hours. 0 07/14/2021 Active oxyCODONE (Roxicodone) 5 mg Tablet Take 0.5-1 tablets by mouth every 6 hours as needed for Pain. Max of 5 tabs in 24 hrs; less as able. 25 tablet 08/03/2021 Active Additional Information Patient not taking.Reported on 10/09/2021 tiZANidine (Zanaflex) 4 mg Tablet 4 mg every 8 hours as needed. 07/16/2022 Active Active Problems Problem Noted Date Diagnosed Date s/p Right L4-5 hemilaminecto my and L4-S1 instrumented fusion on 07/11/21 (Dr. 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 09/08/2015 Chronic low back pain 02/27/2016 Syncope 08/29/2015 PAH (pulmonary artery hypertension) 08/29/2015 COPD, moderate 02/21/2015 Thrush 02/21/2015 Edema 08/03/2014 Trochanteric bursitis 06/03/2014 Radiculopathy of lumbar region 04/07/2014 Urinary retention with incom plete bladder emptying- improved 09/09/2013 Cigarette smoker 09/09/2013 Allergic rhinitis 09/09/2013 Depression 09/09/2013 Anxiety 09/09/2013 Esophageal reflux 09/09/2013 Chronic diarrhea 09/09/2013 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 09/09/2013 Hypertension 09/09/2013 Herniated nucleus pulposus, C6-7 Right, S/P C5-7 ACDF 09/08/13 11/03/2012 Biliary colic 10/27/2012 Dyspnea 10/14/2012 Multiple nodules of lung 08/28/2012 Abdominal distention 12/27/2011 Family History Medical History Relation Comments Cancer Father Coronary Artery Disease Father Diabetes Father Heart Disease Father High Cholesterol Father Coronary Artery Disease Maternal Grandfather Coronary Artery Disease Mother Relation Status Comments Father Maternal Grandfather Mother Social History Tobacco Use Types Packs/Day Years Used Date Smoking Tobacco: Former Cigarettes 1 20 Smokeless Tobacco: Never Tobacco Cessation:Counseling Given: Yes Alcohol Use Standard Drinks/Week Comments No 0 (1 standard drink = 0.6 oz pur e alcohol) quit 2011 Sex and Gender Information Value Date Recorded Sex Assigned at Not on file Gender Identity Not on file Sexual Orientation Not on file Last Filed Vital Signs Vital Sign Reading Time Taken Comments Blood Pressure 143/72 10/09/2021 9:54 AM EST Pulse 69 10/09/2021 9:54 AM EST Temperature 37 ??C (98.6 ??F) 07/14/2021 12:34 PM EST Respiratory Rate 17 07/14/2021 12:34 PM EST Oxygen Saturation 93% 07/14/2021 12:34 PM EST Inhaled Oxygen Concentration - - Weight 83.5 kg (184 lb) 10/09/2021 9:54 AM EST Height 154.9 cm (5' 1) 10/09/2021 9:54 AM EST Body Mass Index 34.77 10/09/2021 9:54 AM EST Plan of Treatment Health Maintenance Due Date Last Done Comments CT Colonography 1962 Colonoscopy 1962 Colorectal Cancer Screening 1962 FIT DNA 1962 FIT 1962 Sigmoidoscopy (10 year) with FIT yearly 1962 Sigmoidoscopy 1962 Pneumococcal Vaccine: At-Ris k 5-64yrs (1 of 2 - PCV) 1968 HIV screen 1980 Hepatitis C Screening 1980 Tdap adult 1981 Tetanus vaccine 1981 HPV test 1992 PAP Smear 1992 Breast Cancer Share Decision Needed 2002 Breast Cancer screening 2002 Zoster vaccine (1 of 2) 2012 Advance Directive 2017 Covid-19 Vaccine (1 - 2022-2 4 season) 2023 Influenza (Flu) vaccine (1 o f 1 - Influenza standard series) 04/12/2024 Diabetes Screening (HgbA1C o r Glucose) 07/14/2024 07/14/2021, 07/13/2021, 07/12/2021, Additional history exists Medical Devices Implanted Type Area 8Th Grade Mathematics Teacher Device Identifier Shelf Expiration Date Model / Serial / Lot Allograft,Bne,Cer v,7mm ([id number]) (Autoreq) - [id number] Implanted:Qty: 1 on 09/08/2013 by Rios Acuna MD at [facility] IMPLANTS DO NOT USE Palmer Hargre[employer] - [id number] 10/08/2017 835.207 / / [id number] Allograft,Bne,Cer v,7mm ([id number]) (Autoreq) - [id number] Implanted:Qty: 1 on 09/08/2013 by Rios Acuna MD at [facility] IMPLANTS DO NOT USE Palmer [employer]argre[employer] - [id number] 11/14/2015 835.207 / / [id number] Plate,Prvdce,Cerv ,2-Lvl,30mm ([id number]) (Autoreq) - [id number] Implanted:Qty: 1 on 09/08/2013 by Rios Acuna MD at [facility] IMPLANTS DO NOT USE Palmer [employer]argreaves - [id number] 150.230 / / Screw,Prvdce,Jason, Stap,4.2x14mm ([id number]) (Autoreq) - [id number] Implanted:Qty: 6 on 09/08/2013 by Rios Acuna MD at [facility] IMPLANTS DO NOT USE Palmer Hargreaves - [id number] 150.814 / / Anderson Spinal 5.5x60mm Lumbar Prebent Ti ([id number]) ([employer]oreq) - [id number] Implanted:Qty: 2 on 07/11/2021 by Rios Acuna MD at [facility] IMPLANTS Spine Lumbar [employer] [id number] / / End Cap Spinal 5.5mm Thoracolumbar Locking Ti ([id number]) ([employer]oreq) - [id number] Implanted:Qty: 6 on 07/11/2021 by Rios Acuna MD at [facility] IMPLANTS Spine Lumbar [employer] [id number] / / Screw Spinal 6.5x40mm Pedicle Plaxl Thread Sld ([id number]) ([employer]oreq) - [id number] Implanted:Qty: 2 on 07/11/2021 by Rios Acuna MD at [facility] IMPLANTS Spine Lumbar [employer] [id number] / / Screw Spinal 6.5x45mm Pedicle Plaxl Thread Sld ([id number]) ([employer]oreq) - [id number] Implanted:Qty: 3 on 07/11/2021 by Rios Acuna MD at [facility] IMPLANTS Spine Lumbar [employer] [id number] / / Screw Spinal 6.5x50mm Pedicle Plaxl Thread Sld ([id number]) ([employer]oreq) - [id number] Implanted:Qty: 1 on 07/11/2021 by Rios Acuna MD at [facility] IMPLANTS Spine Lumbar [employer] [id number] / / Explanted Type Area 8Th Grade Mathematics Teacher Device Identifier Shelf Expiration Date Model / Serial / Lot Screw,Disctn,1 4mm ([id number]) - [id number] Explanted:Qty: 2 on 09/08/2013 at [facility] IMPLANTS SPINAL [employer] - [id number] / / Procedures Procedure Name Priority Date/Time Associated Diagnosis Comments HC VENIPUNCTURE Routine 07/14/2021 11:33 AM EST from Last 3 Months or Most Recently Relevant to Health Maintenance Results * Basic Metabolic Panel (non-fasting) (07/14/2021 11:33 AM EST) [facility] Signature Glucose 115 65 - 199 mg/dL [facility] Comment:Diabetes: >=200 mg/d L plus symptoms Blood Urea Nitrogen 16 8 - 18 mg/dL [facility] Creatinine 0.96 0.70 - 1.20 mg/dL [facility] Sodium 137 135 - 145 mmol/L [facility] Potassium 4.4 3.5 - 5.0 mmol/L [facility] Comment: Please note: ??Patients with WBC >100,000 may have falsely elevated Potassium levels. ??For accurate Potassium quantification in these patients send serum separator tube (gold top) for subsequent determinations. ??Contact the Clinical Chemistry Laboratory if there are any questions. Chloride 99 98 - 107 mmol/L [facility] Carbon Dioxide 27 22 - 31 mmol/L [facility] Anion Gap 11 5 - 15 mmol/L [facility] Calcium 9.8 8.5 - 10.5 mg/dL [facility] Est Glomerular Filtration Rate 65 >=60 mL/min/1. 73 m?? [facility] Comment: This patient? s estimated glomerular filtration rate (eGFR) is between 65 mL/min/1.73 m2 (patients with less muscle mass) and 76 mL/min/1.73 m2 (patients with more muscle mass) as determined by the CKD-EPI equation. Assessment of eGFR is not appropriate when creatinine concentrations are rapidly changing. For clinical decisions where creatinine clearance will affect therapy, a 24-hour urine creatinine clearance may be advised. Assignment of CKD stage 1 - 5 for patients with an eGFR near the transition point between stages may be based on clinical assessment of muscle mass and symptoms in addition to eGFR. Blood 07/14/2021 11:3 3 AM EST 07/14/2021 12:15 PM EST Narrative Resulting Agency Comment Spec In Lab Jane León APRN CHEMISTRY ORDERABLE S [facility] [place] [address] from Last 3 Months or Most Recently Relevant to Health Maintenance Advance Directives * Attempt Cardiopulmonary Resuscitation - Inpatient (Latest Code Status on File) Date Activated Date Inactivated Comments 07/11/2021 3:56 PM 07/14/2021 4:15 PM Question Answer Comments Code Status decision made by: Patient * Full Code Date Activated Date Inactivated Comments 11/20/2018 3:30 PM 11/25/2018 3:26 PM Question Answer Comments Does patient have capacity to make decision: Yes * Full Code Date Activated Date Inactivated Comments 11/13/2018 9:49 PM 11/20/2018 3:30 PM Question Answer Comments Does patient have capacity to make decision: No Code Status decision being made per: Discussion with next of kin Name (and relationship if needed): will discuss with next of kin * Full Code Date Activated Date Inactivated Comments 10/02/2016 1:03 PM 10/02/2016 4:52 PM Question Answer Comments Does patient have capacity to make decision: Yes * Full Code Date Activated Date Inactivated Comments 09/08/2013 3:22 PM 09/09/2013 7:12 PM Care Teams Waste Reduction Coordinator Relationship Specialty Start Date End Date Cb Florence PA [address] [facility] [place] [address] PCP - General Family Medicine 04/08/20
--- OUTSIDE RECORDS SUMMARY | 2024-03-17 18:25 | XMS_ITS | Continuity of Care Document ---
Author Organization [facility] Address [address] [place] [address] Care Team Providers Care Chalk Cutter Name Role Phone CARMELLA AGUILERA D.O. Primary Care Physician Unavailable Encounter [facility] FIN NBR [id number] Date(s): 05/03/23 - 05/03/23 [facility] [address] [place], [place] [address] Encounter Diagnosis Contusion of lower leg, left(Discharge Diagnosis) - 05/03/23 Knee injury(Discharge Diagnosis) - 05/03/23 Shoulder injury(Discharge Diagnosis) - 05/03/23 Low back strain(Discharge Diagnosis) - 05/03/23 Discharge Disposition: Home or Self Care Attending Physician: Sanaz Diaz PA-C Admitting Physician: Sanaz Diaz PA-C Allergies, Adverse Reactions, Alerts Substance Reaction Severity Status albuterol Moderate Active Medications CeleBREX 0 Refill(s) Start Date: 05/03/23 Status: Ordered celecoxib 200 mg oral capsule 200 mg = 1 cap, Oral, Daily, Take once daily for 14 days - in addition to 200mg celebrex capsules once daily, # 14 cap, 0 Refill(s), Pharmacy: [id number] Start Date: 05/03/23 Stop Date: 05/17/23 Status: Ordered Crestor 0 Refill(s) Start Date: 05/03/23 Status: Ordered Cymbalta 0 Refill(s) Start Date: 05/03/23 Status: Ordered lisinopril 0 Refill(s) Start Date: 05/03/23 Status: Ordered tiZANidine 0 Refill(s) Start Date: 05/03/23 Status: Ordered traMADol 0 Refill(s) Start Date: 05/03/23 Status: Ordered traZODone 0 Refill(s) Start Date: 05/03/23 Status: Ordered Wellbutrin 0 Refill(s) Start Date: 05/03/23 Status: Ordered Vital Signs Most recent to oldest [Reference Range]: 1 Temperature Tympanic [36.6-37.9 Deg C] 3 6.8 Deg C (05/03/23 5:25 PM) Peripheral Pulse Rate [60-100 bpm] 90 bp m (05/03/23 5:25 PM) Respiratory Rate [12-24 br/min] 18 br/mi n (05/03/23 5:25 PM) Blood Pressure [90-140/60-90 mmHg] 147/8 2mmHg *HI* (05/03/23 5:25 PM) Weight 77.1 kg (05/03/23 5:25 PM) Weight Measured (lbs) 169.976 lb (05/03/23 5:25 PM) Height 156 cm (05/03/23 5:25 PM) Height/Length Measured (inches) 61.42 in ch (05/03/23 5:25 PM) BSA Measured 1.83 m2 (05/03/23 5:25 PM) Body Mass Index 31.68 kg/m2 (05/03/23 5:25 PM) Social History Social History Type Response Tobacco Current everyday tob acco user Tobacco Use:. 30 per day. Sex Hospital Discharge Instructions Patient Education 05/03/2023 17:28:39 Acute Pain, Adult Acute Pain, Adult Acute pain is a type of sudden pain that may last for just a few days or for as long as six months.It is often related to an illness, injury, or medical procedure. Acute pain may be mild, moderate, or severe. Pain can make it hard for you to do your normal, daily activities. It can cause anxiety and lead toother problems if it is left untreated. Treatment depends on the cause and severity of your pain. Acute pain usually goes away once your injury has healed or you are no longer ill. Follow these instructions at home: Medicines ??? Take smds-via-khktqak and prescription medicines only as told by your health care provider. ??? Take the lowest dose of medicine for the shortest amount of time needed to relieve the pain. ??? If you are taking prescription pain medicine: ??? Do not stop taking the medicine suddenly. Talk to your health care provider about how and when to discontinue prescription medicine. ??? Do not take more pills than told by your health care provider even if your pain is severe. ??? Do not take other fcwn-cpe-hjhxhha pain medicines in addition to prescription pain medicine unless told by your health care provider. ??? Ask your health care provider if the medicine requires you to avoid driving or using heavy machinery. ??? Ask your health care provider if the medicine can cause constipation. You may need to take these actions to prevent or treat constipation: ??? Drink enough fluid to keep your urine pale yellow. ??? Eat foods that are high in fiber, such as beans, whole grains, and fresh fruits and vegetables. ??? Take qncg-vaz-chhsrvn or prescription medicines. ??? Limit foods that are high in fat and processed sugars, such as fried or sweet foods. Managing pain, stiffness, and swelling If directed, put ice on the affected area. To do this: ??? Put ice in a plastic bag. ??? Place a towel between your skin and the bag. ??? Leave the ice on for 20 minutes, 2???3 times a day. If directed, apply heat to the affected area as often as told by your health care provider. Use theheat source that your health care provider recommends, such as a moist heat pack or a heating pad. ??? Place a towel between your skin and the heat source. ??? Leave the heat on for 20???30 minutes. ??? Remove the heat if your skin turns bright red. This is especially important if you are unable to feel pain, heat, or cold. You may have a greater risk of getting burned. Activity ??? Rest as told by your health care provider. ??? Return to your normal activities as told by your health care provider. Ask your health care provider what activities are safe for you. General instructions ??? Check your pain level as told by your health care provider. ??? Ask your health care provider if other strategies such as distraction, relaxation, or physical therapies can help your pain. ??? Keep all follow-up visits as told by your health care provider. This is important. Contact a health care provider if: ??? Your pain is not controlled by medicine. ??? Your pain does not improve or gets worse. ??? You have side effects from pain medicines, such as vomiting or confusion. Get help right away if you: ??? Have severe pain. ??? Have trouble breathing. ??? Lose consciousness. ??? Have chest pain or pressure that lasts for more than a few minutes, or if you have other symptoms along with chest pain, including if you: ??? Have pain or discomfort in one or both arms, your back, neck, jaw, or stomach. ??? Have shortness of breath. ??? Break out in a cold sweat. ??? Feel nauseous. ??? Become light-headed. These symptoms may represent a serious problem that is an emergency. Do not wait to see if the symptoms will go away. Get medical help right away. Call your local emergency services (911 in the [place] Do not drive yourself to the hospital. Summary ??? Acute pain may be mild, moderate, or severe. It usually goes away once your injury has healed or you are no longer ill. ??? Take fyow-yid-yspolss and prescription medicines only as told by your health care provider. ??? Ask your health care provider if the medicine prescribed to you can cause constipation. ??? Contact a health care provider if your pain is not controlled by medicine. This information is not intended to replace advice given to you by your health care provider. Make sure you discuss any questions you have with your health care provider. Document Revised: 12/14/2019 Document Reviewed: 12/14/2019 [employer] Patient Education ?? 2022 [employer]. Physician Outpatient Note * Sanaz Diaz PA-C: PERFORM Event Display: Office Clinic Note Physician Authored Date: [id number] DEEPAK PINO :1960 Age:62 years Sex:Female Visit Date:05/03/2023 Primary Care Physician: CARMELLA AGUILERA D.O. Chief Complaint Pt states that a couple of weeks ago pt fell and hit L awan, R knee, L shoulder. Pt states pain hasremained History of Present Illness The patient is a 62-year-old female??that presents to the urgent care office today with 2-week history??of??right anterior knee??pain, left midshaft anterior awan??pain, left shoulder??pain??and??lowback pain??after she had??tripped??and fallen forward.?? Associated??sharp pain??down the right lower extremity, no weakness??of the foot. ??There is no head injury or loss of consciousness.?? Not onany anticoagulants.?? She has been taking yvzv-oyv-dbtezui Tylenol with minimal improvement of symptoms.?? This is the first time being evaluated??by provider or having any imaging. Review of Systems see HPI Physical Exam Vitals & Measurements T:??36.8?C ??(Tympanic)?? HR:??90??(Peripheral)?? RR:??18?? BP:??147/82?? SpO2:??90%?? HT:??156??cm?? WT:??77.1??kg?? BMI:??31.68?? Pain Score:??8?? BSA:??1.83?? Appears much older than stated age, smells of tobacco. Ambulating without any assistance. Good range of motion of the left shoulder joint. ??No appreciable swelling redness or warmth.?? Tenderness localized to the posterior shoulder joint.?? Normal handgrip. Right knee: Tenderness localized to the patella, no crepitus.?? Normal range of motion in flexion and extension. ??No tenderness at the popliteal fossa, medial or lateral epicondyles.?? No edema. Left anterior awan: Palpable contusion along mid aspect??with depressed deformity of tibial cartilage.?? Minimal edema. Normal dorsiflexion and plantarflexion of both ankles. Reduced range of motion of lumbar spine. ??Well-healed vertical surgical incision??overlying??lumbar??region. Medical Decision Making: Trip and fall: 62-year-old female??that sustained a mechanical??trip and fall??2 weeks ago. ??She sustained soft tissue injury to the right knee, left anterior awan, left shoulder and low back. ??Radiograph of right knee did not reveal any??acute finding, only??arthritic changes.?? I recommended increasing her??Celebrex to 200 mg twice daily x14 days, alternate with Tylenol. ??She is agreeable with this plan. ??I did refer her to orthopedics for follow-up of the right knee??for eval. return precautions provided, please see discharge instructions. Assessment/Plan 1.??Contusion of lower leg, left??S80.12XA Soft tissue injury. ??Recommended topical??ice??twice daily. Ordered: celecoxib 200 mg oral capsule, 200 mg = 1 cap, Oral, Daily, Take once daily for 14 days - in addition to 200mg celebrex capsules once daily, # 14 cap, 0 Refill(s), Pharmacy: [id number] ?? 2.??Knee injury??S89.90XA Plan XR reveals??mild arthritic changes. ??No fracture. Increase Celebrex??200 mg twice a day x 14 days Ordered: celecoxib 200 mg oral capsule, 200 mg = 1 cap, Oral, Daily, Take once daily for 14 days - in addition to 200mg celebrex capsules once daily, # 14 cap, 0 Refill(s), Pharmacy: [facility] ?? 3.??Shoulder injury??S49.90XA Soft tissue. Ordered: celecoxib 200 mg oral capsule, 200 mg = 1 cap, Oral, Daily, Take once daily for 14 days - in addition to 200mg celebrex capsules once daily, # 14 cap, 0 Refill(s), Pharmacy: [facility] ?? 4.??Low back strain??S39.012A ?? Patient Instructions Continue the Celebrex 200 mg capsules once daily. Take the additional Celebrex 200 mg capsule for 14 days You may use??topical ice as well as??Joshua bandage around the knee. You also have referral to orthopedics for follow-up of the right knee injury/pain. Referral Orders Referral Management, Medical Service: Orthopedics, Reason: R knee pain - [facility], Start: 05/03/23 Patient Education Acute Pain, Adult Problem List/Past Medical History Ongoing No qualifying data Historical No qualifying data Medications CeleBREX celecoxib 200 mg oral capsule, 200 mg= 1 cap, Oral, Daily Crestor Cymbalta lisinopril tiZANidine traMADol traZODone Wellbutrin Allergies albuterol Social History Alcohol Current, Beer, Wine, Liquor, 1-2 times per month Electronic Cigarette/Vaping Electronic Cigarette Use: Never. Substance Use Never Tobacco Current everyday tobacco user Tobacco Use:. 30 per day. Electronically Signed on 05/03/23 07:47 PM Sanaz Diaz PA-C Outpatient Summary note * Sanaz Diaz PA-C: PERFORM Event Display: Ambulatory Patient Summary Authored Date: [id number] DEEPAK PINO :1960 Age:62 years Sex:Female Visit Date:05/03/2023 Primary Care Physician: CARMELLA AGUILERA D.O. Ambulatory Visit Instructions We would like to thank you for allowing us to assist you with your healthcare needs. The following includes patient education materials and information regarding your injury/illness. Your Next Steps Instructions From Your Care Team Continue the Celebrex 200 mg capsules once daily. Take the additional Celebrex 200 mg capsule for 14 days You may use??topical ice as well as??Joshua bandage around the knee. You also have referral to orthopedics for follow-up of the right knee injury/pain. Someone Will Contact You Regarding Your Referrals Referral Management, Medical Service: Orthopedics, Reason: R knee pain - [facility], Start: 05/03/23 Medications What How Much When Why Instructions Changed celecoxib (CeleBREX) Changed celecoxib (celecoxib 200 mg oral capsule) 1 Capsules Oral (given by mouth) Every day Contusion of lower leg, left Knee injury Shoulder injury Duration: 14 Days Take once daily for 14 days - in addition to 200mg celebrex capsules once daily ?? Pickup at [facility] Unchanged buPROPion (Wellbutrin) Unchanged DULoxetine (Cymbalta) Unchanged lisinopril Unchanged rosuvastatin (Crestor) Unchanged tiZANidine Unchanged traMADol Unchanged traZODone Pharmacy Information [facility]: [address], [place] [phone] Your Summary Your Diagnosis Contusion of lower leg, left Knee injury Shoulder injury Your Care Team Admitting Physician - Sanaz Diaz PA-C Attending Physician - Sanaz Diaz PA-C Primary Care Physician - CARMELLA AGUILERA D.O. Discharge Vitals Temperature??(Tympanic) 98.2 ??F (36.8 ??C) Heart Rate??(Peripheral) 90 Respiratory Rate?? 18 Blood Pressure?? 147/82?? Height?? 61.42 in (156 cm) Weight?? 170.01 lb (77.1 kg) BMI?? 31.68 Allergies albuterol Education Materials Acute Pain, Adult Acute pain is a type of sudden pain that may last for just a few days or for as long as six months.It is often related to an illness, injury, or medical procedure. Acute pain may be mild, moderate, or severe. Pain can make it hard for you to do your normal, daily activities. It can cause anxiety and lead toother problems if it is left untreated. Treatment depends on the cause and severity of your pain. Acute pain usually goes away once your injury has healed or you are no longer ill. Follow these instructions at home: Medicines ? Take gkaq-uoy-qaggzpv and prescription medicines only as told by your health care provider. ? Take the lowest dose of medicine for the shortest amount of time needed to relieve the pain. ? If you are taking prescription pain medicine: ? Do not stop taking the medicine suddenly. Talk to your health care provider about how and when to discontinue prescription medicine. ? Do not take more pills than told by your health care provider even if your pain is severe. ? Do not take other sdnl-jaa-kpgnvwo pain medicines in addition to prescription pain medicine unless told by your health care provider. ? Ask your health care provider if the medicine requires you to avoid driving or using heavy machinery. ? Ask your health care provider if the medicine can cause constipation. You may need to take these actions to prevent or treat constipation: ? Drink enough fluid to keep your urine pale yellow. ? Eat foods that are high in fiber, such as beans, whole grains, and fresh fruits and vegetables. ? Take yogi-aab-lneajxu or prescription medicines. ? Limit foods that are high in fat and processed sugars, such as fried or sweet foods. Managing pain, stiffness, and swelling If directed, put ice on the affected area. To do this: ? Put ice in a plastic bag. ? Place a towel between your skin and the bag. ? Leave the ice on for 20 minutes, 2???3 times a day. If directed, apply heat to the affected area as often as told by your health care provider. Use theheat source that your health care provider recommends, such as a moist heat pack or a heating pad. ? Place a towel between your skin and the heat source. ? Leave the heat on for 20???30 minutes. ? Remove the heat if your skin turns bright red. This is especially important if you are unable to feel pain, heat, or cold. You may have a greater risk of getting burned. Activity ? Rest as told by your health care provider. ? Return to your normal activities as told by your health care provider. Ask your health care provider what activities are safe for you. General instructions ? Check your pain level as told by your health care provider. ? Ask your health care provider if other strategies such as distraction, relaxation, or physical therapies can help your pain. ? Keep all follow-up visits as told by your health care provider. This is important. Contact a health care provider if: ? Your pain is not controlled by medicine. ? Your pain does not improve or gets worse. ? You have side effects from pain medicines, such as vomiting or confusion. Get help right away if you: ? Have severe pain. ? Have trouble breathing. ? Lose consciousness. ? Have chest pain or pressure that lasts for more than a few minutes, or if you have other symptoms along with chest pain, including if you: ? Have pain or discomfort in one or both arms, your back, neck, jaw, or stomach. ? Have shortness of breath. ? Break out in a cold sweat. ? Feel nauseous. ? Become light-headed. These symptoms may represent a serious problem that is an emergency. Do not wait to see if the symptoms will go away. Get medical help right away. Call your local emergency services (911 in the [place] Do not drive yourself to the hospital. Summary ? Acute pain may be mild, moderate, or severe. It usually goes away once your injury has healed or you are no longer ill. ? Take wlfo-prk-aixylxg and prescription medicines only as told by your health care provider. ? Ask your health care provider if the medicine prescribed to you can cause constipation. ? Contact a health care provider if your pain is not controlled by medicine. This information is not intended to replace advice given to you by your health care provider. Make sure you discuss any questions you have with your health care provider. Document Revised: 12/14/2019 Document Reviewed: 12/14/2019 [employer] Patient Education ?? 2022 [employer] Electronically Signed on: 05/03/2023 18:29 EDTSigned by: Patient Care team information Care Team Related Persons Name: LIBERTY PINO Address: Home [address] [place] [phone] [facility] Name: DANETTE PATEL Address: Home [address] [place] [phone] [facility] Name: DANETTE PATEL Address: Home [address] [place] [address] [facility]
--- OUTSIDE RECORDS SUMMARY | 2024-03-17 18:25 | XMS_ITS | Continuity of Care Document ---
Author Organization [facility] Address [address] [place] [address] Care Team Providers Care Video Effects Editor Name Role Phone CARMELLA AGUILERA D.O. Primary Care Physician Unavailable Encounter [facility] FIN NBR [id number] Date(s): 05/03/23 - 05/03/[address] [address] Discharge Disposition: Home or Self Care Attending [...] daily, # 14 cap, 0 Refill(s), Pharmacy: [id number] Start Date: 05/03/23 Stop Date: [...] 0 Refill(s) Start Date: 05/03/23 Status: Ordered Results Radiology Reports * Exam Date Time Procedure Performing Provider Status 05/03/23 6:14 PM XR Knee 3 Views Right Constance Galvan ; Auth (Verified) Notes: (XR Knee 3 Views Right) Reason For Exam: R knee injury XR Knee 3 Views Right PROCEDURE INFORMATION: Exam: XR Right Knee Exam date and time: 05/03/2023 6:07 PM Age: 62 years old Clinical indication: Unspecified injury of shoulder and upper arm, unspecified arm, initial encounter; Unspecified injury of shoulder and upper arm, unspecified arm, initial encounter; Contusion of left lower leg, initial encounter; Contusion of left lower leg, initial encounter; Unspecified injury of unspecified lower leg, initial encounter; Unspecified injury of unspecified lower leg, initial encounter; Additional info: R knee injury TECHNIQUE: Imaging protocol: Radiologic exam of the right knee. Views: 3 views. COMPARISON: No relevant prior studies available. FINDINGS: Bones/joints: No acute fracture. Soft tissues: Unremarkable. IMPRESSION: No acute osseous process. THIS DOCUMENT HAS BEEN ELECTRONICALLY SIGNED BY NENO JOSEPH MD on 05/03/2023 06:31 PM Final Signed by: Neno Joseph MD Signed (Electronic Signature): 05/03/2023 6:31 pm Social History Social History Type Response Tobacco Current everyday tob acco user Tobacco Use:. 30 per day. Sex Patient Care team information Care Team Related Persons Name: LIBERTY PINO Address: Home [address] [place] [phone] [facility] Name: DANETTE PATEL Address: Home [address] [place] [phone] [facility] Name: DANETTE PATEL Address: Home [address] [place], [place] [address] [facility]
--- OUTSIDE RECORDS SUMMARY | 2024-03-17 18:26 | XMS_ITS | Encounter Summary ---
[place] [address] Care Team Providers Care Director Search Name Role Phone Cb [place] Primary Care Provider +1- [phone] Reason for Visit * Reason Onset Date Comments Medication Refill 07/20/2021 Encounter Details Date Type Department Care Team (Late st Contact Info) Description 07/20/2021 Refill [facility] [place] [phone] Chen Valencia, RN Social History Tobacco Use Types Packs/Day Years [...] on file documented as of this encounter Miscellaneous Notes * Telephone Encounter - Chen Valencia, RN - 07/20/2021 9:18 AM EST Received return call from pt requesting medication refill. We had left 2 messages for her followingan incoming VM message from her on 07/18 advising we needed to speak with her prior to rprocessing refill request. Pt indicated she had not recieived eithr message. Pt is s/p R L4-5 lami, bilat L4-[address] Corbett 07/11/21 ( 1+ wk); Pt was discharged home on07/14/21 w script for on oxycodone 5 mg, 1/2- 1 tab q 4 hrs prn, # 30 tabs.. Pt has scheduled FU w Xray pending on 08/10/21. ?? PDMP query performed. Acute Opioid Prescribing: Opioid PDMP 07/20/2021 05/04/2021 [place] Query Date 07/20/2021 05/05/2021 Comment pdmp query performed; noted historical tramadol scripts; the oxycodone script which was filed at d/c on 07/14 for #30 was not listed. Query done. Patient takes Tramadol 50 mg routinely for past year, prescribed by Cb [place] MS PA-C No flowsheet data found. Acute Opioid Specific Questions 05/04/2021 Date Acute Consent signed 05/05/2021 Comment Discussed and reviewed opioid consent. No questions. Patient expresses understanding. Declines a copy. Considered the risk of opioid misuse, abuse, diversion? Yes Comment Discussed and reviewed the proper use of, misuse/abuse of opioid medication. Patient expresses understanding. Considered options for non-pharmacological modalities and non-opioid therapy? Yes Comment Discussed and reviewed the use of ice, repositioning, Tylenol and Ibuprofen as the first line of defense for pain management. Patient expresses understanding. Some recent data might be hidden Calculations performed; pt is taking opioid as instructed. Was taking 1 tablet every 4 hrs or pain;Has reduced to 1/2 tab to make supply last but is interested in taking a full tablet for some dosesto achieve appropriate pain mgmt. Pt reports Back, right hip and tingling sensation in right anterior thigh and great toe. Pt reportsthat at times her prop sxs are less; at other times her current akhtar level is very similar to that postoperatively. Pt is icing as instructed and using tylenol regularly. Pt reports having been takingthe tylenol every 4 hrs with her oxycodone; Advised pt that that was excessive tylenol use; that she needed to reduce use to 2 Tylenol ES three times/day. Pt reports understanding. Reviewed other non opioid pain mgmt strategies to include activity modification, Activity restrictions and regularly assuming the position of most comfort as a respite. Pt understand that opioid use is for moderate to severe pain not managed by all the non opioid pain mgmt options. Informed pt that Dr Corbett was in clinic that I would pend a script for him to sign; that we wouldbe doing calculations allowng for a mix of 1/2 tab and 1 tab dosing. Pt familiar with med use and dosing instructions. Reviewed date/time for pending HCK. informed pt that I would watch for the script to be signed off and try to call to advise her it was al set. Script pended to Dr corbett. documented in this encounter Plan of Treatment Not on file documented as of this encounter Visit Diagnoses Not on filedocumented in this encounter Care Teams Director Search Relationship Specialty Start Date End Date Cb [place] PA [address] [place] [address] PCP - General Family Medicine 04/08/20 documented as of this encounter
--- OUTSIDE RECORDS SUMMARY | 2024-03-17 18:26 | XMS_ITS | Encounter Summary ---
[place] [address] Care Team Providers Care Jet Inspector Name Role Phone Cb [place] Primary Care Provider +1- [phone] Encounter Details Date Type Department Care Team (Late st Contact Info) Description 08/10/2021 Notes Only [facility] [place] [address] Milvia Fernandez RN Social History Tobacco Use Types Packs/Day [...] as of this encounter Progress Notes * Milvia Fernandez RN - 08/10/2021 4:32 PM EST Per order of Dr. Acuna patient's sutures were removed without difficulty. Steri strips were applied with mastisol. documented in this encounter Plan of Treatment Not on file documented as of this encounter Visit Diagnoses Not on filedocumented in this encounter Care Teams Jet Inspector Relationship Specialty Start Date End Date Cb [place] PA [address] [place] [address] PCP - General Family Medicine 04/08/20 documented as of this encounter
--- OUTSIDE RECORDS SUMMARY | 2024-03-17 18:26 | XMS_ITS | Encounter Summary ---
Author Organization [facility] Address [facility] [place] [address] Care Team Providers Care Asbestos Shingle Inspector Name Role Phone Cb [place] Primary Care Provider +1- [phone] Encounter Details Date Type Department Care Team (Latest Contact Info) Description 08/10/2021 2:48 PM EST - 08/10/2021 11:59 PM [facility] Hospital Encounter XRay at [address] [place] [address] Rios Acuna MD [facility] [place] [address] Spondylolisthesis of lumbar region Discharge Disposition: Home Social History Tobacco Use [...] Sig Dispensed Refills Start Date End Date acetaminophen (Tylenol) 500 mg Tablet Take 2 tablets by mouth every 6 hours. 0 07/14/[address] (Cymbalta) 30 mg Capsule, Delayed Release(E.C.) TAKE 1 CAPSULE BY MOUTH ONCE DAILY 03/17/2021 Narcan 4 mg/actuation [place], Non-Aerosol ADMINISTER A SINGLE SPRAY INTRANASALLY INTO [...] CLASSIC OXYGEN CONCENTRATOR MISC) 3 L by [facility].(Non-Drug; Combo Route) route nightly. diphenoxylate-atropin e (LOMOTIL) 2.5-0.025 mg Tablet Take 1 tablet by mouth 4 times daily. DO NOT restarted this unless you are having diarrhea. 120 tablet 7 06/11/2014 albuterol (PROVENTIL HFA;VENTOLIN HFA) 90 mcg/actuation HFA Aerosol Inhaler Inhale 2 puffs into the lungs every 4 hours as needed. Use with spacer Inhalational Spacing Device Spcr 2 puffs by [facility].(Non-Drug; Combo Route) route daily. promethazine (PHENERGAN) 25 [...] by mouth daily. loratadine (CLARITIN) 10 mg tabletIndications:Mul tiple nodules of lung Take 10 mg by mouth daily. senna-docusate (Pericolace) 8.6-50 mg Tablet Take 2 tablets by mouth 2 times daily as needed for Constipation for up to 30 days. 0 07/14/2021 08/13/2021 polyethylene glycoL (Miralax) 17 gram/dose Powder Take 17 g by mouth 2 times daily as needed for up to 30 days. 0 07/14/2021 08/13/2021 documented as of this encounter Plan of Treatment Not on file documented as of this encounter Procedures Procedure Name Priority Date/Time Associated Diagnosis Comments XR LUMBAR SPINE 2 OR 3 VIEWS Routine 08/10/2021 2:58 PM EST Spondylolisthesis of lumbar region documented in this encounter Results * XR Lumbar Spine 2 Or 3 Views (Generic) (08/10/2021 2:58 PM EST) Anatomical Region Laterality Modality L-spine N/A Digital Radiogra phy Impressions 08/10/2021 3:04 PM EST L4 L4-S1 spinal fusion without evidence of complication. No change in alignment. Thank you for letting us participate in the care of this patient. ??If you are a health care provider and have any questions regarding this report, please contact the number below. ??For patients who have questions please contact the health rn critical care that requested your imaging first. ? Electronically signed by: Dion Austni MD, [facility] ([phone]), at 08/10/2021 3:04 PM Narrative 08/10/2021 3:04 PM EST EXAMINATION: XR LUMBAR SPINE 2 OR 3 VIEWS (GENERIC) CLINICAL HISTORY: s/p surgery TECHNIQUE: AP and lateral views of the lumbar spine COMPARISON: Lumbar spine radiographs 07/11/2021 FINDINGS: Instrumented spinal fusion of L4-S1. The hardware is intact and unchanged in appearance. Unchanged grade 1 anterolisthesis of L4-L5 and L5 on S1. No spondylolisthesis at the remaining lumbar levels. The vertebral bodies and intervertebral disc spaces are normal in height. Moderate bilateral sacroiliac joint arthropathy. Mineralization is diffusely decreased. Procedure Note Dion Austin MD - 08/10/2021 EXAMINATION: XR LUMBAR SPINE 2 OR 3 VIEWS (GENERIC) CLINICAL HISTORY: s/p surgery TECHNIQUE: AP and lateral views of the lumbar spine COMPARISON: Lumbar spine radiographs 07/11/2021 FINDINGS: Instrumented spinal fusion of L4-S1. The hardware is intact and unchangedin appearance. Unchanged grade 1 anterolisthesis of L4-L5 and L5 on S1. No spondylolisthesis at the remaining lumbar levels. The vertebral bodiesand intervertebral disc spaces are normal in height. Moderate bilateralsacroiliac joint arthropathy. Mineralization is diffusely decreased. IMPRESSION L4 L4-S1 spinal fusion without evidence of complication. No change inalignment. Thank you for letting us participate in the care of this patient. If youare a health care provider and have any questions regarding this report,please contact the number below. For patients who have questions please contactthe health rn critical care that requested your imaging first. Rios Acuna MD IMG DX ORDERABLES documented in this encounter Visit Diagnoses Diagnosis Spondylolisthesis of lumbar region Acquired spondylolisthesis documented in this encounter Care Teams Asbestos Shingle Inspector Relationship Specialty Start Date End Date Cb [place] PA [address] [place] [address] PCP - General Family Medicine 04/08/20 documented as of this encounter
--- OUTSIDE RECORDS SUMMARY | 2024-03-17 18:26 | XMS_ITS | Encounter Summary ---
[place] [address] Care Team Providers Care Behavior Analyst Name Role Phone Cb [place] Primary Care Provider +1- [phone] Encounter Details Date Type Department Care Team (Late st Contact Info) Description 08/14/2021 Telephone [facility] [place] [phone] Lucretia Moreno LPN Social History Tobacco Use Types Packs/Day Years [...] encounter Miscellaneous Notes * Telephone Encounter - Lucretia Moreno LPN - 08/14/2021 1:28 PM EST PT called to advise they are dc'ing home PT as Poppy is independent with exercises. documented in this encounter Plan of Treatment Not on file documented as of this encounter Visit Diagnoses Not on filedocumented in this encounter Care Teams Behavior Analyst Relationship Specialty Start Date End Date Cb [place] PA [address] [place] [address] PCP - General Family Medicine 04/08/20 documented as of this encounter
--- OUTSIDE RECORDS SUMMARY | 2024-03-17 18:26 | XMS_ITS | Encounter Summary ---
[place] [address] Care Team Providers Care Db2 Systems Programmer Name Role Phone Cb [place] Primary Care Provider +1- [phone] Reason for Referral * Physical Therapy (Routine) - Closed Specialty Diagnoses / Procedures Referred By Chava alejo Referred To Contact Physical Therapy Diagnoses Status post lumbar spinal fusion Rios Acuna MD [facility] [place] [address] Rehab, [address] [address] Referral ID Status Reason Start Date Expiration Date V isits Requested Visits Authorized [id number] Closed Evaluate and Treat 10/09/2021 04/07/2022 1 1 Reason for Visit * Reason Comments Follow Up Surgery Encounter Details Date Type Department Care Team (Latest Contact Info) Description 10/09/2021 10:00 AM EST Office Visit [facility] [place] [address] Rios Acuna MD [facility] [place] [address] s/p Right L4-5 hemilaminectomy and L4-S1 instrumented [...] on file documented as of this encounter Last Filed Vital Signs Vital Sign Reading Time Taken Comments Blood Pressure 143/72 10/09/2021 9:54 AM EST Pulse 69 10/09/2021 9:54 AM EST Temperature - - Respiratory Rate - - Oxygen Saturation - - Inhaled Oxygen Concentration - - Weight 83.5 kg (184 lb) 10/09/2021 9:54 AM EST Height 154.9 cm (5' 1) 10/09/2021 9:54 AM EST Body Mass Index 34.77 10/09/2021 9:54 AM EST documented in this encounter Patient Instructions * Patient Instructions* Rios Acuna MD - 10/09/2021 10:46 AM EST X-rays prior to next visit. documented in this encounter Progress Notes * Rios Acuna MD - 10/09/2021 10:00 AM EST Date of surgery: 07/11/2021 ?? Surgery: Revision right L4-L5 hemilaminectomy with transpedicular discectomy and L4-S1 posterolateral instrumented fusion using right iliac crest bone graft Interval history: Ms. Mclaughlin returns today about 3 months out from surgery. She reports that she continues to make progress. She gets some pain in her low back that radiates to her right buttock but no pain going distally. She continues to have some numbness and tingling in her right anterolateral thigh, though she notes this is also improving. She has been gradually increasing her activity and did some home physical therapy. She has not yet started outpatient physical therapy. She is taking Tylenol and tramadol as needed. Overall, she is pleased with how she is doing. Physical exam General: Patient is comfortable, no acute distress Back: She has a well-healed incision. There is a scab present just to the right of the incision andthe cranial aspect of the wound, similar to when I saw her last. There is no drainage or surrounding erythema. Neurological exam: She has 5/5 strength of all lower extremity motors. She has mildly altered sensation in her right anterolateral thigh. Imaging: AP and lateral x-rays of the lumbar spine from 10/09/2021 were reviewed. These demonstrate no change in alignment of the spine or the hardware. There is nothing to suggest hardware failure orloosening. There is maturing bone graft present bilaterally. Assessment/plan: Ms. Mclaughlin is 3 months out from her lumbar decompression and fusion, and she continues to make good progress. I gave her a referral for physical therapy. I offered referral to the wound clinic for them to assess the chronic scab just the right of her wound, though she declined that. I will plan to see her back in 9 months with repeat x-rays at that time documented in this encounter Plan of Treatment Scheduled Referrals Name Type Priority Associated Diagnoses Orde r Schedule Referral to Physical Therapy Outpatient Referral Routine s/p Right L4-5 hemilaminectomy and L4-S1 instrumented fusion on 07/11/21 (Dr. Acuna) Ordered: 10/09/2021 documented as of this encounter Results * XR Lumbar Spine [...] who have questions please contact the health critical care rn that requested your imaging first. ? Electronically signed by: VIRI RICHTER MD, [facility] ([phone]), at 07/20/2022 1:52 PM Narrative 07/20/2022 1:52 PM EST EXAMINATION: XR [...] patients who have questions please contactthe health critical care rn that requested your imaging first. Rios Acuna MD IMG DX ORDERABLES documented in this encounter Visit Diagnoses Diagnosis s/p Right L4-5 hemilaminectomy and L4-S1 instrumented fusion on 07/11/21 (Dr. Acuna) Arthrodesis status s/p Right L4-5 hemilaminectomy and L4-S1 instrumented fusion on 07/11/21 (Dr. Acuna) Arthrodesis status documented in this encounter Care Teams Db2 Systems Programmer Relationship Specialty Start Date End Date Cb [place] PA [address] [place] [address] PCP - General Family Medicine 04/08/20 documented as of this encounter
--- OUTSIDE RECORDS SUMMARY | 2024-03-17 18:26 | XMS_ITS | Encounter Summary ---
[place] [address] Care Team Providers Care Sheet Metal Assembler Name Role Phone Cb [place] Primary Care Provider +1- [phone] Reason for Visit * Reason Onset Date Comments Oxygen Dependence 01/24/2022 Confirmation o f Order Form Encounter Details Date Type Department Care Team (Late st Contact Info) Description 01/24/2022 Telephone [place] [phone] Suzanne Sears RN Oxygen Dependence (Confirmation of Order Form) Social History Tobacco Use Types Packs/Day Years [...] encounter Miscellaneous Notes * Telephone Encounter - Suzanne Sears RN - 01/24/2022 1:05 PM EDT Faxed completed Written Confirmation of Order form for oxygen, signed by Dr. Holloway, to [employer]. This covered the following items: E1390 - Concentrator Oxlife 3LPM E1392 - Portable Oxygen E0424 - Regulator O2 Stationary 0-8 LPM Fax submission confirmation time stamped for 01/24/2022 @ 0743. 2 pages with cover sheet. Copy of Written Confirmation of Order form sent to scanning for inclusion to patient records. documented in this encounter Plan of Treatment Not on file documented as of this encounter Visit Diagnoses Not on filedocumented in this encounter Care Teams Sheet Metal Assembler Relationship Specialty Start Date End Date Cb [place] PA [address] [place] [address] PCP - General Family Medicine 04/08/20 documented as of this encounter
--- OUTSIDE RECORDS SUMMARY | 2024-03-17 18:26 | XMS_ITS | Encounter Summary ---
Author Organization [facility] [address] Care Team Providers Care Live Games Dealer Name Role Phone Cb [place] Primary Care Provider +1- [phone] Encounter Details Date Type Department Care Team (Late st Contact Info) Description 09/14/2021 [place] [address] Osmany Holloway MD [facility] [place] [address] COPD, moderate; PAH (pulmonary artery hypertension) Social History Tobacco Use Types Packs/Day Years [...] on file documented as of this encounter Plan of Treatment Not on file documented as of this encounter Visit Diagnoses Diagnosis COPD, moderate Chronic airway obstruction, not elsewhere classified PAH (pulmonary artery hypertension) Other chronic pulmonary heart diseases documented in this encounter Care Teams Live Games Dealer Relationship Specialty Start Date End Date Cb [place] PA [address] [place] [address] PCP - General Family Medicine 04/08/20 documented as of this encounter
--- OUTSIDE RECORDS SUMMARY | 2024-03-17 18:26 | XMS_ITS | Encounter Summary ---
Author Organization [facility] [address] Care Team Providers Care Rn Infusion Name Role Phone Cb [place] Primary Care Provider +1- [phone] Encounter Details Date Type Department Care Team (Late st Contact Info) Description 07/14/2021 Telephone [place] [phone] Vj Reyes MD [facility] [place] [address] Social History Tobacco Use Types Packs/Day Years [...] encounter Miscellaneous Notes * Telephone Encounter - Vj Reyes MD - 07/14/2021 5:19 PM EST [facility] pharmacy called because only 26 pills of oxycodone 5mg were in stock. The patient was prescribed 30 pills. I informed pharmacy that 26 pills would be acceptable and that patient has dischargeinstructions and can contact clinic if more pain medication is needed. documented in this encounter Plan of Treatment Not on file documented as of this encounter Visit Diagnoses Not on filedocumented in this encounter Care Teams Rn Infusion Relationship Specialty Start Date End Date Cb [place] PA [address] [place] [address] PCP - General Family Medicine 04/08/20 documented as of this encounter
--- OUTSIDE RECORDS SUMMARY | 2024-03-17 18:26 | XMS_ITS | Encounter Summary ---
[place] [address] Care Team Providers Care Bird Cage Assembler Name Role Phone Cb [place] Primary Care Provider +1- [phone] Encounter Details Date Type Department Care Team (Late st Contact Info) Description 07/28/2021 Telephone [facility] [place] [phone] Lucretia Moreno LPN Social History Tobacco Use [...] Telephone Encounter - Lucretia Moreno LPN - 07/28/2021 4:07 PM EST Images from the original note were not included. Poppy sent in this pic of her wound today. She is s/p 07/11/21 1. L4-S1 posterolateral fusion 2. Right L4-L5 revision transpedicular discectomy 3. Right L4-L5 hemilaminectomy with facetectomy and foraminotomies 4. Pedicle screw instrumentation L4-S1 5. Right iliac crest bone grafting Will route to Dr. Acuna for his review Patient aware that Dr. Acuna thinks the wound looks good and sees no red flags. She is to have sutures out later this week, and that provider will make judgement as to whether they come out or not.She follows up with Dr. Acuna 08-10-2021 documented in this encounter Plan of Treatment Not on file documented as of this encounter Visit Diagnoses Not on filedocumented in this encounter Care Teams Bird Cage Assembler Relationship Specialty Start Date End Date Cb [place] PA [address] [place] [address] PCP - General Family Medicine 04/08/20 documented as of this encounter
--- OUTSIDE RECORDS SUMMARY | 2024-03-17 18:26 | XMS_ITS | Encounter Summary ---
[place] [address] Care Team Providers Care Document Control Associate Name Role Phone Cb Florence Primary Care Provider [phone] Reason for Visit * Reason Onset Date Comments Pre Procedure Call 05/04/2021 Encounter Details Date Type Department Care Team (Late st Contact Info) Description 05/04/2021 Telephone [facility] [place] [address] Virgie Lopez RN Pre Procedure Call Social History Tobacco Use Types Packs/Day Years Used Date Smoking Tobacco: Every Day Cigarettes 1 20 Smokeless Tobacco: Never Comments:pt would like to sp eak with someone about quiting. Tobacco cessation packet given Alcohol Use Standard Drinks/Week Comments No 0 (1 standard drink = 0.6 oz pur e alcohol) quit 2011 Sex and Gender Information Value Date Recorded Sex Assigned at Not on file Gender Identity Not on file Sexual Orientation Not on file documented as of this encounter Miscellaneous Notes * Telephone Encounter - Virgie Lopez RN - 05/05/2021 2:12 PM EDT Met with today following the surgical evaluation for purpose of providing pre and post operative instructions and to plan for any pre/post- operative discharge needs. Pre-op Medication Holds: Advised pt of need to hold anticoagulants, NSAIDs, ASA products, and Fish Oil for ~10 days preoperatively. Reviewed medication list. Pt agreed to hold her Meloxicam as instructed. Ms Mclaughlin is not noted to be taking any prescription anticoagulants. Opioid Risks and Pain Management: Reviewed salient points within Acute Opioid Therapy Informed Consent. denies any questions or concerns. Offered pt a copy of consent for home reference. Signed Consent Form passed to the [facility] counsellors for scanning. Reviewed with that she is likely to experience some postoperative incisional and extremity pain, to include expectations re potential new or increased N/T. Explained that the timing and intensity of this pain is variable. Reviewed in detail non-opioid pain mgmt strategies that should be put in place postoperatively to minimize opioid use. Strategies discussed included: rest and relaxation, activity modification, regular repositioning, regular Acetaminophen use, hourly ice application for local analgesia/inflammation. Explained that the non-opioid pain mgmt strategies are intended to be the first line of treatment t o assist with her postop pain. Instructed to Initiate the regular use of ice and OTC medication immediately upon return home, even if this was not documented in her discharge instructions. Reinforced with pt that she should continue the non-opioid pain mgmt treatments for as long as he isrequiring any opioids; that the opioid is the first treatment that should be discontinued. Advised that any opioid pain medication that is prescribed is to be used to supplement the non-opioid methods. Advised pt that she is to take the least amt of opioid possible, and the expectation is that she will reduce use as the postoperative pain subsides. Advised pt that she should never exceed the prescribed amt without obtaining authorization from the prescribing provider. See PDMP query below. Reviewed current and historical opioid use. Yes reviewed is noted to be on opioids currently as prescribed by Cb Florence MS, PA-C Opioid Contract: Yes Reviewed with pt to make efforts to minimize opioid use preop as this will aid post-op pain management. - Call her prescribing provider to advise of surgical plans and determine their willingness to manage postoperative opioid needs after the initial script (typically 1 wk). Call made/response: Call to Ms Florence's office,( ) I spoke to Deep (nursing) for arequest to Ms Florence to take over pain management after discharge, (with anticipated 1 week pain med script on discharge) I gave them out phone number for a response from Ms Florence. Acute post-operative pain mgmt is expected to be managed by: [facility], initially, the hope is to transfer this medication to Ms Florence after initial discharge script. Call out to Provider Provided instructions and general expectations re prescription refill practices/timing. Acute Opioid Prescribing: Opioid PDMP 05/04/2021 [place] PDMP Query Date 05/05/2021 Comment Query done. Patient takes Tramadol 50 mg routinely for past year, prescribed by Cb Florence MS GERARDO No flowsheet data found. Acute Opioid Specific [...] understanding. Some recent data might be hidden Activity: Reviewed with our expectations re activity postoperatively, to include use of good body mechanics, to relax when moving rather than tensing/guarding, and our expectations re progressive walking upon return home. Advised that he would not be able to drive while taking opioid painmedication. Home Support/Services Expected: Discussed home environment and support available following discharge. Patient has the support of her , José Manuel at discharge. It's anticipated that pt will go home. Employment Status/Disability/FMLA: Employment status: Patient is out on Disability Job demands: Usual Activities of Daily Living Expected first day of disability: Day of Surgery Length of time pt is expecting to be OOW: 8-12 weeks. Reviewed with pt where to send disability forms and expectations regarding completion. Postoperative PT Evaluation: Given provider preference, current physical capacity, and/or work demands, discussed value of and timing of a [facility] PT evaluation in coordination with surgeon's hospital check. has opted to defer PT at this time. A copy of [facility] Pre/Post-Operative Reference sheet provided to pt; reviewed the content. Encouraged to review these instructions prior to coming into the hospital and then again uponreturn home so that the instructions will be recalled easily. verbalized understanding of the information reviewed.. was given the contact information for the [facility] Nursing staff; she was encouraged to call pre or postoperatively withany questions or concerns. documented in this encounter Plan of Treatment Not on file documented as of this encounter Visit Diagnoses Not on filedocumented in this encounter Care Teams Document Control Associate Relationship Specialty Start Date End Date Cb Florence PA [address] [place] [address] PCP - General Family Medicine 04/08/20 documented as of this encounter
--- OUTSIDE RECORDS SUMMARY | 2024-03-17 18:26 | XMS_ITS | Encounter Summary ---
Author Organization [facility] [address] Care Team Providers Care [employer] Volley[employer] Coach Name Role Phone Cb Florence Primary Care Provider +1- [phone] Reason for Visit * Auth/Cert Specialty Diagnoses / Procedures Referred By Chava alejo Referred To Contact Diagnoses Status post lumbar spinal fusion Degenerative spondylolisthesis with spinal stenosis Procedures PRO LUMBAR SPINE FUSN, POST TECH PRO SPINE FUSN, POST TECH, EA ADDNL SGMT PRO LAMINEC/FACETECT/FORAMIN, LUMBAR 1 SEG PRO LAMINEC/FACETECT/FORAMIN, EACH ADDNL PRO POSTERIOR SEGMENTAL INSTRUMENTATION 3-6 VRT SEG PRO AUTOGRAFT SPINE SURGERY MORSELIZED SEP INCISION ARTHRODESIS, LUMBAR SPINE, SINGLE LEVEL (WRVU 23.53) ARTHRODESIS, POSTERIOR VERTEBRAL EA.ADD. SEGMENT (WRVU 6.43) LAMINECTOMY, FACETECTOMY & FORAMINOTOMY,LUMBAR, ONE LEVEL (WRVU 15.37) ADD'L INTERSPACES CX., THORACIC, LUMBAR (WRVU 3.47) POST SPINAL INSTRUMENTATION, 3-6 VERTEBRA, NON SEGMENTAL (WRVU 12.56) AUTOGRAFT FOR SPINE SURGERY ONLY; MORSELIZED (THROUGH SEPARATE SKIN OR FASCIAL INCISION) (WRVU 2.79) MODIFIER GLOBUS CREO MODIFIER L4 MODIFIER L5 Referral ID Status Reason Start Date Expiration Date Visits Re quested Visits Authorized [id number] 1 1 Encounter Details Date Type Department Care Team (Late st Contact Info) Description 07/11/2021 10:22 AM EST Anesthesia Event [place] [address] Natali Zaldivar MD [facility] [place] [address] Anesthesia Record Procedure Summary Procedure Name Responsible Anesthesiologist Anesthesia Start Time Anesthesia Stop Time ARTHRODESIS, LUMBAR SPINE, SINGLE INTERSPACE (WRVU 23.53) (Bilateral: Back) Natali Zaldivar MD 07/11/21 1022 07/11/21 1527 Events Date Time Event Comment 07/11/2021 0948 1022 AN Verify 1022 Start 1022 An Start Data 1030 An Induction 1033 An Intubation 1040 Anesthesia Ready 1133 Break/Relief In I assumed ca re for Break Relief before which we: 1. Identified the patient 2. Identified the responsible provider(s) 3. Reviewed the pertinent medical history 4. Discussed the surgical plan and course 5. Reviewed intra-op anesthesia management and issues during anesthesia 6. Set expectations for the relief (and/or post-procedure) period 7. Allowed opportunity for questions and acknowledgement of understanding Chastity De Guzman CRNA 1147 An Data Art Surgeon leaning on NIBP Cuff, cuff moved to forearm 1202 Break/Relief Out 1503 Break/Relief In I assumed ca re for Break Relief before which we: 1. Identified the patient 2. Identified the responsible provider(s) 3. Reviewed the pertinent medical history 4. Discussed the surgical plan and course 5. Reviewed intra-op anesthesia management and issues during anesthesia 6. Set expectations for the relief (and/or post-procedure) period 7. Allowed opportunity for questions and acknowledgement of understanding Dominic Gamez CRNA 1516 Extubation/LMA Out Extubatio n criteria met including spontaneous Vt > 5 mL/kg, spontaneous RR > 7 bpm, full reversal of muscle relaxation, and intact cough/gag reflexes. Oropharynx suctioned and patient extubated to 8 L of oxygen via facemask with a 90mm OPA in place. Hemodynamically stable and spontaneous ventilation maintained. 1519 an stop data 1527 Recovery or ICU Handoff Kathy ent care was transferred to the destination unit staff after review of the patient's medical history, current anesthetic/surgical status and plan, according to the Provider Handoff Checklist. 1527 Stop Meds Name Total Midazolam 2 mg fentaNYL 50 mcg IV Lidocaine 100 mg Propofol 200 mg Rocuronium 50 mg PHENYLephrine 160 mcg ePHEDrine 5 mg Ondansetron 8 mg Dexamethasone 4 mg Neostigmine 3 mg Glycopyrrolate 0.4 mg ceFAZolin (Ancef) 2 g in dextrose 5% 100 mL infusion 4 g tranexamic acid (Cyklokapron ) 1,286 mg in sodium chloride 0.9% 112.86 mL infusion 1,286 mg tranexamic acid (Cyklokapron ) (10 mg/mL) in sodium chloride 100 mL continuous infusion 314.23 mg Ketamine 10 mg/mL 100 mg Propofol INF 634.18 mg PHENYLephrine INF 10,430 mcg HYDROmorphone 2 mg/mL 2 mg acetaminophen IV 1,000 mg Lactated Ringers 2,000 mL * Agents Name O2 Air N2O Sevoflurane (et) * Blood No blood administrations on file. Lines, Drains, and Airways Type Details Placement Removal Incision 07/11/21; 1104; lumb ar spine 07/11/21 1104 by Peg Flores RN Incision 11/04/12; 1412; abdomen; LDA not present upon assessment (healed); 07/12/21; 0157 11/04/12 1412 by Jesus Fritz RN 07/12/21 0157 by Shobha Padilla RN Incision 09/08/13; 1156; cervical spine; LDA not present upon assessment (healed); 07/12/21; 0157 09/08/13 1156 by Sanaz Briscoe RN 07/12/21 0157 by Shobha Padilla RN Incision 08/31/14; lumbar spi ne; L4 L5 ; LDA not present upon assessment (healed); 07/12/21; 0158 08/31/14 0000 by Yana Yuen RN 07/12/21 0158 by Shobha Padilla RN Wound 11/21/18; 0902; gluteal; LDA not present upon assessment (healed); 07/12/21; 0158 11/21/18 0902 by Puja Colindres RN 07/12/21 0158 by Shobha Padilla RN (RETIRED) Peripheral IV Line - Single Lumen 07/11/21; 1011; metacarpal vein (top of hand), right; [id number] catheter system; Anatomical Landmarks; 20 gauge; distraction; LDA not present upon assessment; 07/14/21; 1423 07/11/21 1011 by Sydnee Cantu RN 07/14/21 1423 by Lucretia Samuel RN ETT Mask Ventilation: Ea sy (1); ETT Type: Cuffed, Oral; ETT Size: 7 mm; Mac Blade: 3; Attempts: 1; Laryngoscopy Grade: 2; ETT Placement Verified By: Auscultation, Capnometry, Visual; Secured at Teeth: 22 cm; Inserted by: Sanaz Coffey CRNA; Removal Date: 07/11/21; Removal Time: 151507/11/21 1032 by Sanaz Coffey CRNA 07/11/21 1516 by Dominic Gamez CRNA (RETIRED) Peripheral IV Line - Single Lumen 07/11/21; 1045; dorsal arch vein (top of hand), left; [id number] catheter system; Anatomical Landmarks; 18 gauge; Sanaz Coffey CLINICAL TRIAL DATA MANAGER; no longer indicated, catheter/device intact; 07/14/21; 1342 07/11/21 1045 by Sanaz Coffey CLINICAL TRIAL DATA MANAGER 07/14/21 1342 by Sanaz Greco Urethral Catheter 07/11/21; 1045; Surg gabby longer than 2 hours, Physician order; indwelling catheter with core temperature probe; 100% silicone; 14; inserted at this facility; 1; 5; 10; none; drainage bag to dependent drainage; 07/12/21; 0835 07/11/21 1045 by Ana Luisa Robertson 07/12/21 0835 by Nina Valenzuela Drain/Device Site 07/11/21; 1458; Left ; lower; back; collapsible closed device; 07/13/21; 1321 07/11/21 1458 by Ana Luisa Robertson 07/13/21 1321 by Fabian Koenig Jr. RN documented in this encounter Social History Tobacco Use Types Packs/Day Years [...] on file documented as of this encounter OR Notes * Anesthesia Postprocedure Evaluation - Natali Zaldivar MD - 07/11/2021 4:53 PM EST Department of Anesthesiology Post-procedure Note Patient: Poppy Mclaughlin Procedure Summary Date: 07/11/21 Room / Location: [facility] OR [facility] MAIN OR Anesthesia Start: 1022 Anesthesia Stop: 1526 Procedures: ARTHRODESIS, LUMBAR SPINE, SINGLE LEVEL (WRVU 23.53) (Bilateral Back) ARTHRODESIS, POSTERIOR VERTEBRAL EA.ADD. SEGMENT (WRVU 6.43) (Bilateral ) ADD'L INTERSPACES CX., THORACIC, LUMBAR (WRVU 3.47) (Bilateral Spine Thoracic) POST SPINAL INSTRUMENTATION, 3-6 VERTEBRA, NON SEGMENTAL (WRVU 12.56) (Bilateral Spine Lumbar) AUTOGRAFT FOR SPINE SURGERY ONLY; MORSELIZED (THROUGH SEPARATE SKIN OR FASCIAL INCISION) (WRVU 2.79) (Bilateral ) MODIFIER GLOBUS CREO (Bilateral Back) MODIFIER L4 (Bilateral ) MODIFIER L5 (Bilateral ) TRANSPEDICULAR LUMBAR DECOMPRESSION SPINAL CORD,EQUINA & NERVE ROOTS, ONE LVL. (WRVU 21.86) (N/A Back) LAMINECTOMY, FACETECTOMY & FORAMINOTOMY,LUMBAR, ONE LEVEL (WRVU 15.37) (N/A Spine Lumbar) Diagnosis: Spondylolisthesis of lumbar region (Degenerative spondylolisthesis with spinal stenosis) Surgeons: Rios Acuna MD Responsible Provider: Natali Zaldivar MD Anesthesia Type: general ASA Status: 3 All Anesthesia Providers: Anesthesiologist: Natali Zaldivar MD CLINICAL TRIAL DATA MANAGER: Beth Pinon CRNA; Sanaz Coffey CRNA Vitals Value Taken Time BP 109/70 07/11/21 1645 Temp Pulse 80 07/11/21 1653 Resp 14 07/11/21 1653 SpO2 96 % 07/11/21 1653 Pain Level 8 07/11/21 1625 Vitals shown include unvalidated device data. Patient Location: PACU/SDP Level of Consciousness: Conscious but Sleepy Pain Management: Pain Being Addressed PONV: None Cardiovascular Status: Hemodynamically Stable Respiratory Status: Supplemental O2 (NC or FM) Postoperative Fluid Status: Intravascular EUvolemia Possible Anesthetic Complications: NONE apparent at time of evaluation Final Primary Anesthesia Type: General (The anesthetic type performed was the same as planned.) Comments: NATALI ZALDIVAR MD * Anesthesia Preprocedure Evaluation - Natali Zaldivar MD - 07/11/2021 9:43 AM EST Pre-Anesthesia Evaluation for: Poppy Mclaughlin a 60 y.o. female. Procedure(s): ARTHRODESIS, LUMBAR SPINE, SINGLE LEVEL (WRVU 23.53) ARTHRODESIS, POSTERIOR VERTEBRAL EA.ADD. SEGMENT (WRVU 6.43) LAMINECTOMY, FACETECTOMY & FORAMINOTOMY,LUMBAR, ONE LEVEL (WRVU 15.37) ADD'L INTERSPACES CX., THORACIC, LUMBAR (WRVU 3.47) POST SPINAL INSTRUMENTATION, 3-6 VERTEBRA, NON SEGMENTAL (WRVU 12.56) AUTOGRAFT FOR SPINE SURGERY ONLY; MORSELIZED (THROUGH SEPARATE SKIN OR FASCIAL INCISION) (WRVU 2.79) MODIFIER GLOBUS CREO MODIFIER L4 MODIFIER L5 Patient Active Problem List Diagnosis ??? Spondylolisthesis ??? Influenza due to identified novel H1N1 influenza virus with identified novel H1N1 influenza pneumonia ??? Viral sepsis ??? Acquired hypothyroidism ??? ANGE (acute kidney injury) ??? ARDS (adult respiratory distress syndrome) ??? Influenza vaccination contraindicated ??? Mixed restrictive and obstructive lung disease ??? Chronic low back pain ??? Syncope ??? PAH (pulmonary artery hypertension) ??? COPD, moderate ??? Thrush ??? Edema ??? Trochanteric bursitis ??? Radiculopathy of lumbar region ??? Urinary retention with incomplete bladder emptying- improved ??? Cigarette smoker ??? Allergic rhinitis ??? Depression ??? Anxiety ??? Esophageal reflux ??? Chronic diarrhea ??? 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 Hypertension ??? Herniated nucleus pulposus, C6-7 Right, S/P C5-7 ACDF 09/08/13 ??? Biliary colic ??? Dyspnea ??? Multiple nodules of lung ??? Abdominal distention Past Medical History: Diagnosis Date ??? Allergy liquid abuterol, egg sensitivity ??? Breathing problem im seeing dr zapata ??? Chronic pain ??? Diabetes mellitus 03/19/2016 ??? Digestive problems 12-11 ?? gerd, nutcracker syndrome abdominal gistention dr holder ??? ENT disease 3-[address] alex ??? Headache(784.0) ? Hypertensive disease they have said my bp is running high ??? Skin disorder ?? acne Past Surgical History: Procedure Laterality Date ??? PRG UNLISTED DIAGNOSTIC GASTROENTEROLOGY PROCEDURE [address] jimenez ??? PRO ALLOGRAFT FOR SPINE SURGERY ONLY STRUCTURAL 09/08/2013 ALLOGRAFT FOR SPINE SURGERY ONLY; STRUCTUAL performed by Rios Acuna MD at [facility] MAIN OR ??? PRO ANTERIOR INSTRUMENTATION 2-3 VERTEBRAL SEGMENTS 09/08/2013 @ANT. SPINAL INSTRUMENTATION, 2-3 VERTEBRA, SEGMENTED performed by Rios Acuna MD at [facility] [place] ??? PRO ARTHRD ANT INTERDY CERVCL BELW C2 EA ADDL NTRSPC 09/08/2013 @ARTHRODESIS ANT INTERBDY CERVCL BELOW C2 EA ADDL INTRSPACE performed by Rois Acuna MD at [facility] MAIN OR ??? PRO ARTHRODESIS, ANT INTERBODY,DECOMPRESSION; CERVICAL BELOW C2 09/08/2013 ARTHRODESIS, ANT INTERBODY,DECOMPRESSION; CERVICAL BELOW C2 performed by Rios Acuna MD at [facility] MAIN OR ??? PRO DECOMPRESS SPINAL CORD, 1 SEG Right 08/31/2014 TRANSPEDICULAR LUMBAR DECOMPRESSION SPINAL CORD,EQUINA & NERVE ROOTS, ONE LVL. performed by Rios Acuna MD at [facility] MAIN OR ??? PRO LAP, CHOLECYSTECTOMY/GRAPH 11/04/2012 LAPAROSCOPIC CHOLECYSTECTOMY WITH CHOLANGIOGRAM performed by Abel Carlton MD at [facility] MAIN OR ??? PRO UPPER GI ENDOSCOPY, BIOPSY N/A 10/26/2015 UPPER GASTROINTESTINAL ENDOSCOPY,WITH BIOPSY SINGLE OR MULTIPLE performed by Apolinar Sepulveda MDat [facility] ENDOSCOPY ??? PRO UPPER GI ENDOSCOPY, DIAGNOSTIC N/A 10/26/2015 EGD, UPPER GI ENDOSCOPY performed by Apolinar Sepulveda MD at [facility] ENDOSCOPY ??? PRO UPPER GI ENDOSCOPY, DIAGNOSTIC N/A 10/02/2016 EGD, UPPER GI ENDOSCOPY performed by Justin Starkey MD at [facility] ENDOSCOPY ??? PRO UPPER GI ENDOSCOPY, W/DIR SUBMUC INJ 11/05/2017 EGD, W DIRECTED SUBMUCOSAL INJECTION(S) performed by Osmany Keller MD at [facility] ENDOSCOPY Social History Tobacco Use ??? Smoking status: Current Every Day Smoker Packs/day: 1.00 Years: 20.00 Pack years: 20.00 Types: Cigarettes ??? Smokeless tobacco: Never Used ??? Tobacco comment: pt would like to speak with someone about quiting. Tobacco cessation packet given Substance Use Topics ??? Alcohol use: No Comment: quit 2011 Social History Substance and Sexual Activity Drug Use Not Currently ??? Types: Narcotics Comment: pain meds 3x day Allergies Allergen Reactions ??? Pneumococcal Vaccine Other (See Comments) Cold/Flu like symptoms ??? Albuterol Other (See Comments) Liquid--Per patient, she gets hyperactivity. Medications: MAR and/or home medications have been reviewed. Physical Exam: Preprocedure Vitals Current as of 07/11/21 0943 BP: Pulse: 76 Resp: SpO2: 99 Temp: Height: 154.9 cm (5' 1) (05/04/21) Weight: 85.7 kg (189 lb) (05/04/21) BMI: 35.71 IBW: 47.8 kg (105 lb 4.8 oz) Last edited 07/11/21 0939 by CD Airway Assessment: Mallampati: II Neck ROM: limited Limited extension Hx of Mac 3 Gr 1 Cardiovascular Assessment: Rate: normal Pulmonary Assessment: (+) decreased breath sounds Dental Assessment: Comment: No upper teeth Poor lower dentition Misc Assessment: IV access: Peripheral line Last Filed Perioperative Cognitive Screening None Anesthesia Plan: ASA 3 general, with a(n) intravenous induction 60 yo with chronic back pain (baclofen, lyrica, tramadol 2-3 per day) presents for L4-5 facetomy and L4-S1 fusion + smoker had quit recently but now 1/2 PPD, last cig this am COPD 3L oxygen at night Complex digestive problems Depression/Anxiety Hx prior cervical and lumbar spine surgeries Reports rough to wake up but no other problems with anesthesia HTN ELO but has not tolerated CPAP FVC 71%, FEV1 60% Room air sat 94-98% after our conversation After last spine surgery and difficult pain to control in PACU but also very sleepy per notes Risks and benefits (including but not limited to worsening pain and pulmonary problems discussed) All questions answered NATALI ZALDIVAR MD Region - Other Informed Consent: Anesthetic plan and risks discussed with patient and spouse. Use of blood products discussed with patient who consented to blood products. Plan discussed with CLINICAL TRIAL DATA MANAGER. Anesthesia Screening documented in this encounter Plan of Treatment Not on file documented as of this encounter Visit Diagnoses Not on filedocumented in this encounter Administered Medications Inactive Administered Medications - up to 3 most recent administrations Medication Order MAR Action Action Date Dose Rate Site acetaminophen (Ofirmev) (1000 mg/100 mL) infusion Intravenous, Administer over 15 Minutes, PRN, Starting on Sat07/11/21 at 1426, Until Sat07/11/21 at 1527, Anesthesia Intra-op, Routine Given 07/11/2021 2:26 PM EST 1,000 mg ceFAZolin (Ancef) 2 g in dextrose 5% 100 mL infusion 2 g, Intravenous, EVERY 3 HOURS, 1 dose, First dose on Sat07/11/21 at 1000, Administer over 30 Minutes, Redose after 3 hours., Intra-Operative (Intra-Procedure), Indication for (Active or Suspected): Prophylaxis Given 07/11/2021 2:33 PM EST 2 g Given 07/11/2021 10:43 AM EST 2 g dexamethasone (Decadron) injection Intravenous, PRN, Starting on Sat07/11/21 at 1121, Until Sat07/11/21 at 1527, Anesthesia Intra-op, Routine Given 07/11/2021 11:21 AM EST 4 mg ePHEDrine sulfate (5 mg/mL) multi-dose injection Intravenous, PRN, Starting on Sat07/11/21 at 1156, Until Sat07/11/21 at 1527, Anesthesia Intra-op, Routine Given 07/11/2021 11:56 AM EST 5 mg fentaNYL (pf) (50 mcg/mL) multi-dose injection Intravenous, PRN, Starting on Sat07/11/21 at 1030, Until Sat07/11/21 at 1527, Anesthesia Intra-op, Routine Given 07/11/2021 10:30 AM EST 50 mcg glycopyrrolate (Robinul) (0.2 mg/mL) multi-dose injection Intravenous, PRN, Starting on Sat07/11/21 at 1430, Until Sat07/11/21 at 1527, Anesthesia Intra-op, Routine Given 07/11/2021 2:30 PM EST 0.4 mg HYDROmorphone (Dilaudid) (2 mg/mL) multi-dose injection solution Intravenous, PRN, Starting on Sat07/11/21 at 1125, Until Sat07/11/21 at 1527, Anesthesia Intra-op, Routine Given 07/11/2021 2:43 PM EST 0.4 mg Given 07/11/2021 2:30 PM EST 0.6 mg Given 07/11/2021 1:46 PM EST 0.4 mg ketamine (Ketalar) (10 mg/mL) IV bolus injection (Anesthesia) Intravenous, PRN, Starting on Sat07/11/21 at 1030, Until Sat07/11/21 at 1527, Anesthesia Intra-op Given 07/11/2021 11:01 AM EST 50 mg Given 07/11/2021 10:30 AM EST 50 mg lactated ringers infusion Intravenous, CONTINUOUS PRN, Starting on Sat07/11/21 at 1022, Until Sat07/11/21 at 1527, Anesthesia Intra-op New Bag 07/11/2021 10:22 AM EST lidocaine (pf) (Xylocaine) (20 mg/mL) 2% injection syringe Intravenous, PRN, Starting on Sat07/11/21 at 1030, Until Sat07/11/21 at 1527, Anesthesia Intra-op, Routine Given 07/11/2021 10:30 AM EST 100 mg midazolam (pf) (Versed) (1 mg/mL) multi-dose injection Intravenous, PRN, Starting on Sat07/11/21 at 1022, Until Sat07/11/21 at 1527, Anesthesia Intra-op, Routine Given 07/11/2021 10:22 AM EST 2 mg neostigmine (Bloxiver) (1 mg/mL) injection Intravenous, PRN, Starting on Sat07/11/21 at 1430, Until Sat07/11/21 at 1527, Anesthesia Intra-op, Routine Given 07/11/2021 2:30 PM EST 3 mg ondansetron (pf) (Zofran) (2 mg/mL) injection Intravenous, PRN, Starting on Sat07/11/21 at 1042, Until Sat07/11/21 at 1527, Anesthesia Intra-op, Routine Given 07/11/2021 11:21 AM EST 4 mg Given 07/11/2021 10:42 AM EST 4 mg PHENYLephrine (Marques-Synephrine) (80 mcg/mL) in sodium chloride 0.9% 250 mL infusion Intravenous, CONTINUOUS PRN, Starting on Sat07/11/21 at 1037, Until Sat07/11/21 at 1527, Anesthesia Intra-op, Routine Rate/Dose Change 07/11/2021 2:44 PM EST 20 mcg/min 15 mL/hr Rate/Dose Change 07/11/2021 12:29 PM EST 40 mcg/min 30 mL/ hr Rate/Dose Change 07/11/2021 11:55 AM EST 60 mcg/min 45 mL/ hr PHENYLephrine in NS (PF) (MARQUES-SYNEPHRINE) 0.8 mg/10 mL (80 mcg/mL) multi-dose injection Syrg Intravenous, PRN, Starting on Sat07/11/21 at 1051, Until Sat07/11/21 at 1527, Anesthesia Intra-op, Routine Given 07/11/2021 12:12 PM EST 80 mcg Given 07/11/2021 10:51 AM EST 80 mcg propofoL (Diprivan) (10 mg/mL) infusion Intravenous, CONTINUOUS PRN, Starting on Sat07/11/21 at 1040, Until Sat07/11/21 at 1527, Anesthesia Intra-op, Routine Rate/Dose Change 07/11/2021 11:02 AM EST 30 mcg/kg/min 15.426 mL/hr New Bag 07/11/2021 10:40 AM EST 50 mcg/kg/min 25.71 mL/ hr propofoL (Diprivan) 10 mg/mL bolus injection (Anesthesia) Intravenous, PRN, Starting on Sat07/11/21 at 1030, Until Sat07/11/21 at 1527, Anesthesia Intra-op Given 07/11/2021 10:30 AM EST 200 mg rocuronium (Zemuron) (10 mg/mL) multi-dose injection Intravenous, PRN, Starting on Sat07/11/21 at 1032, Until Sat07/11/21 at 1527, Anesthesia Intra-op, Routine Given 07/11/2021 10:32 AM EST 50 mg tranexamic acid (Cyklokapron) (10 mg/mL) in sodium chloride 100 mL continuous infusion 1 mg/kg/hr ? 85.7 kg (8.57 mL/hr, rounded to 8.6 mL/hr), Intravenous, CONTINUOUS, Starting on Sat07/11/21 at 1000, Until Sat07/11/21 at 2008 New Bag 07/11/2021 11:05 AM EST 1 mg/kg/hr 8.57 mL/hr tranexamic acid (Cyklokapron) 1,286 mg in sodium chloride 0.9% 112.86 mL infusion 1,286 mg (rounded from 1,285.5 mg = 15 mg/kg/dose ? 85.7 kg), Intravenous, ONCE, 1 dose, On Sat07/11/21 at 1000, Administer over 30 Minutes, Day of Surgery (Day of Procedure) New Bag 07/11/2021 11:05 AM EST 1,286 mg documented in this encounter Care Teams [employer] Volleyball Coach Relationship Specialty Start Date End Date Cb Florence PA [address] [place] [address] PCP - General Family Medicine 04/08/20 documented as of this encounter
--- OUTSIDE RECORDS SUMMARY | 2024-03-17 18:26 | XMS_ITS | Encounter Summary ---
[place] [address] Care Team Providers Care Sap Payroll Consultant Name Role Phone Cb Florence Primary Care Provider [phone]- [phone] Reason for Visit * Reason Onset Date Comments Medication Refill 07/18/2021 Encounter Details Date Type Department Care Team (Late st Contact Info) Description 07/18/2021 Telephone [facility] [place] [address] Chen Valencia, large animal veterinarian Refill Social History Tobacco Use Types Packs/Day Years [...] Telephone Encounter - Chen Valencia, RN - 07/18/2021 2:53 PM EST Received VM message from pt w requesting medication refill. Pt is s/p R L4-5 lami, bilat L4-[address] Acuna 07/11/21; Pt was discharged home on07/14/21 w script for on oxycodone 5 mg, 1/2- 1 tab q 4 hrs prn, # 30 tabs.. Pt has scheduled FU w Xray pending on 08/10/21. Two calls out to pt, leaving messages for pt to return call to spine nsg office (ph # provided) to allow us to gather more information re pain and med use, script needs; Awaiting return call. documented in this encounter Plan of Treatment Not on file documented as of this encounter Visit Diagnoses Not on filedocumented in this encounter Care Teams Sap Payroll Consultant Relationship Specialty Start Date End Date Cb Florence PA [address] [place] [address] PCP - General Family Medicine 04/08/20 documented as of this encounter
--- OUTSIDE RECORDS SUMMARY | 2024-03-17 18:26 | XMS_ITS | Encounter Summary ---
[place] [address] Care Team Providers Care Jewelry Sales Associate Name Role Phone Cb Florence Primary Care Provider [phone]- [phone] Encounter Details Date Type Department Care Team (Late st Contact Info) Description 08/02/2021 Telephone [facility] [place] [id number] Lucretia Moreno LPN Social History Tobacco Use [...] Telephone Encounter - Lucretia Moreno LPN - 08/02/2021 10:04 AM EST Rec'd call from PT, they were to take out Armaan sutures today but did not have the supplies, Poppy wants to wait until her appt here 08-10-21. documented in this encounter Plan of Treatment Not on file documented as of this encounter Visit Diagnoses Not on filedocumented in this encounter Care Teams Jewelry Sales Associate Relationship Specialty Start Date End Date Cb Florence PA [address] [place] [address] PCP - General Family Medicine 04/08/20 documented as of this encounter
--- OUTSIDE RECORDS SUMMARY | 2024-03-17 18:26 | XMS_ITS | Encounter Summary ---
Author Organization [facility] [place] [address] Care Team Providers Care Biochemist Name Role Phone Cb Florence Primary Care Provider +1- [phone] Reason for Visit * Auth/Cert Specialty Diagnoses [...] Expiration Date Visits Re quested Visits Authorized [id number] 1 1 Encounter Details Date Type Department Care Team (Latest Contact Info) Description 07/11/2021 8:15 AM EST Laboratory Appointment Lab [address] [place] [address] Spondylolisthesis of lumbar region; Pain in extremity, unspecified extremity Social History Tobacco Use Types Packs/Day Years [...] Procedure Name Priority Date/Time Associated Diagnosis Comments TYPE AND SCREEN VALIDITY Routine 07/11/2021 9:01 AM EST ABORH RECHECK STATUS Routine 07/11/2021 9:01 AM EST HEMOGRAM Routine 07/11/2021 9:01 AM EST Pain in extremity, unspecified extremity Spondylolisthesis of lumbar region DIFFERENTIAL, AUTOMATED Routine 07/11/2021 9:01 AM EST Pain in extremity, unspecified extremity Spondylolisthesis of lumbar region HC ANTIBODY DETECTION,CAPTURE-R Routine 07/11/2021 9:01 AM EST Spondylolisthesis of lumbar region ABO/RH TYPING Routine 07/11/2021 9:01 AM EST Spondylolisthesis of lumbar region HC PROTHROMBIN TIME Routine 07/11/2021 9 :01 AM EST Pain in extremity, unspecified extremity Spondylolisthesis of lumbar region HC CBC,PLT & AUTO DIFF Routine 07/11/2021 9:01 AM EST Pain in extremity, unspecified extremity Spondylolisthesis of lumbar region ANTIBODY SCREEN Routine 07/11/2021 9:01 AM EST Spondylolisthesis of lumbar region BASIC METABOLIC PANEL Routine 07/11/2021 9:01 AM EST Spondylolisthesis of lumbar region documented in this encounter Results * Type and Screen Validity (07/11/2021 9:01 AM EST) Pathologist [facility] T&S only valid at [facility] LABORATORY Comment:This Type and Screen result is only valid at the [facility] Blood 07/11/2021 9:01 AM EST 07/11/2021 9:07 AM EST Narrative Resulting Agency Comment Spec In Lab Rios Acuna MD BLOOD BANK LAB ORDER DAMARIS [facility] [place] [address] * ABORH Recheck Status (07/11/2021 9:01 AM EST) [facility] ABORH Type Recheck Completed [facility] Blood 07/11/2021 9:01 AM EST 07/11/2021 9:07 AM EST Narrative Resulting Agency Comment Spec In Lab Rios Acuna MD BLOOD BANK LAB ORDER DAMARIS Performing Organization Address City/[facility]/ZIP Co de Phone Number [facility] [place] [address] * (ABNORMAL) Differential, Automated (07/11/2021 9:01 AM EST) [facility] Neutrophil % 52.5 % [facility] Neutrophil Absolute 4.89 1.70 - 6.10 x10(3)/mc L [facility] Lymph % 38.5 % [facility] Lymphocytes Abs 3.6(H) 0.9 - 3.2 x10(3)/mc L [facility] Monocyte % 5.3 % [facility] Monocyte Abs 0.5 0.3 - 0.9 x10(3)/mc L [facility] Eos % 3.1 % [facility] Eosinophils Abs 0.3 0.0 - 0.4 x10(3)/mc L [facility] Basophil % 0.5 % [facility] Baso Absolute 0.0 0.0 - 0.1 x10(3)/ L [facility] Immature Gran % 0.10 % [facility] Comment: Immature granulocytes(IG's)percentage and absolute count will include metamyelocytes, myelocytes, and promyelocytes. Blood smears from CBCs yielding IG's will be scanned manually for concordance. If this scan disagrees with the automated IG or if promyelocytes are noted, a manual differential will be performed. Immature Gran Absolute 0.01 0.00 - 0.04 x10(3)/ L [facility] Blood 07/11/2021 9:01 AM EST 07/11/2021 9:10 AM EST Narrative Resulting Agency Comment Spec In Lab Rios Acuna MD HEMATOLOGY ORDERABLE S Performing Organization Address City/State/[facility] Co de Phone Number [facility] [place] [address] * (ABNORMAL) Hemogram (07/11/2021 9:01 AM EST) White Blood Cell 9.3 4.0 - 9.5 x10(3)/[facility] LABORATORY Red Blood Cell 4.26 4.00 - 5.21 x10(6)/ L [facility] Hemoglobin 12.6 11.7 - 15.5 g/dL [facility] Hematocrit 39.7 35.7 - 45.8 % [facility] Mean Cell Volume 93.2 82.6 - 94.4 fL [facility] Mean Cell Hemoglobin 29.6 27.1 - 32.0 pg [facility] Mean Cell Hemoglobin Concentration 31.7 31.7 - 35.0 g/dL [facility] Platelet 207 145 - 357 x10(3)/ L [facility] RDW Standard Deviation 46.5(H) 37.0 - 46.0 fL [facility] RDW coefficient of variation 13.7 11.5 - 14.1 % [facility] Mean Platelet Volume 11.1 7.6 - 12.9 fL [facility] NRBC% auto 0.0 % [facility] NRBC Absolute 0.000 0.000 - 0.000 x10(3)/mc L [facility] Blood 07/11/2021 9:01 AM EST 07/11/2021 9:10 AM EST Narrative Resulting Agency Comment Spec In Lab Rios Acuna MD HEMATOLOGY ORDERABLE S Performing Organization Address City/[facility]/ZIP Co de Phone Number [facility] [place] [address] * Antibody screen (07/11/2021 9:01 AM EST) Ab Screen Interp Negative [facility] Expires at [id number] on: 07/14/2021 [facility] Blood 07/11/2021 9:01 AM EST 07/11/2021 9:07 AM EST Narrative Resulting Agency Comment Spec In Lab Rios Acuna MD BLOOD BANK LAB ORDER DAMARIS Performing Organization Address City/[facility]/ZIP Co de Phone Number [facility] [place] [address] * ABO/Rh Typing (07/11/2021 9:01 AM EST) ABORH Type A Pos [facility] Blood 07/11/2021 9:01 AM EST 07/11/2021 9:07 AM EST Narrative Resulting Agency Comment Spec In Lab Rios Acuna MD BLOOD BANK LAB ORDER DAMARIS Performing Organization Address City/[facility]/ZIP Co de Phone Number [facility] [place] [address] * (ABNORMAL) Basic Metabolic Panel (non-fasting) (07/11/2021 9:01 AM EST) Glucose 84 65 - 199 mg/dL [facility] Comment:Diabetes: >=200 mg/d L plus symptoms Blood Urea Nitrogen 22(H) 8 - 18 mg/dL [facility] Creatinine 1.26(H) 0.70 - 1.20 mg/dL [facility] Sodium 141 135 - 145 mmol/L [facility] Potassium 3.9 3.5 - 5.0 mmol/L [facility] Comment: Please note: ??Patients with WBC >100,000 may have falsely elevated Potassium levels. ??For accurate Potassium quantification in these patients send serum separator tube (gold top) for subsequent determinations. ??Contact the Clinical Chemistry Laboratory if there are any questions. Chloride 104 98 - 107 mmol/L [facility] Carbon Dioxide 26 22 - 31 mmol/L [facility] Anion Gap 11 5 - 15 mmol/L [facility] Calcium 9.7 8.5 - 10.5 mg/dL [facility] Est Glomerular Filtration Rate 47(L) >=60 mL/min/1. 73 m?? [facility] Comment: This patient? s estimated glomerular filtration rate (eGFR) is between 47 mL/min/1.73 m2 (patients with less muscle mass) and 54 mL/min/1.73 m2 (patients with more muscle mass) [...] and symptoms in addition to eGFR. Blood 07/11/2021 9:01 AM EST 07/11/2021 9:11 AM EST Narrative Resulting Agency Comment Spec In Lab Rios Acuna MD CHEMISTRY ORDERABLES [facility] [place] [place] [address] * Prothrombin Time (07/11/2021 9:01 AM EST) Prothrombin Time 11.2 9.4 - 12.5 sec [facility] International Normalization Ratio 1.0 [facility] Comment: An INR <2.0 indicates adequate procoagulant activity for hemostasis in most patients without underlying bleeding disorders, though the INR may not adequately reflect hemostatic capacity in patients with liver disease and synthetic impairment. The recommended target INR range for therapeutic anticoagulation is 2.0 ? 3.0 for most applications, though lower and higher ranges may be appropriate depending on clinical circumstances. Blood 07/11/2021 9:01 AM EST 07/11/2021 9:10 AM EST Narrative Resulting Agency Comment Spec In Lab Rios Acuna MD HEMATOLOGY ORDERABLE S [facility] [place] [address] documented in this encounter Visit Diagnoses Diagnosis Spondylolisthesis of lumbar region Acquired spondylolisthesis Pain in extremity, unspecified extremity documented in this encounter Care Teams Biochemist Relationship Specialty Start Date End Date Cb Florence PA [address] [place] [address] PCP - General Family Medicine 04/08/20 documented as of this encounter
--- OUTSIDE RECORDS SUMMARY | 2024-03-17 18:26 | XMS_ITS | Encounter Summary ---
Author Organization [facility] Address [facility] [place] [address] Care Team Providers Care Harness Puller Name Role Phone Cb Florence Primary Care Provider +1- [phone] Encounter Details Date Type Department Care Team (Latest Contact Info) Description 10/09/2021 8:46 AM EST - 10/09/2021 11:59 PM [facility] Hospital Encounter XRay at [address] [place] [address] Rios Acuna MD [facility] [place] [address] s/p Right L4-5 hemilaminectomy and L4-S1 instrumented [...] MOUTH ONCE DAILY 03/17/2021 Narcan 4 mg/actuation [place], Non-Aerosol ADMINISTER A SINGLE SPRAY INTRANASALLY INTO [...] CLASSIC OXYGEN CONCENTRATOR MISC) 3 L by [facility]Non-Drug; Combo Route) route nightly. diphenoxylate-atropine (LOMOTIL) 2.5-0.025 mg Tablet Take 1 tablet by mouth 4 times daily. DO NOT restarted this unless you are having diarrhea. 120 tablet 7 06/11/2014 albuterol (PROVENTIL HFA;VENTOLIN HFA) 90 mcg/actuation HFA Aerosol Inhaler Inhale 2 puffs into the lungs every 4 hours as needed. Use with spacer Inhalational Spacing Device Spcr 2 puffs by [facility]Non-Drug; Combo Route) route daily. promethazine (PHENERGAN) 25 [...] LUMBAR SPINE 2 OR 3 VIEWS Routine 10/09/2021 9:30 AM EST s/p Right L4-5 hemilaminectomy and L4-S1 instrumented fusion on 07/11/21 (Dr. Acuna) documented in this encounter Results * XR Lumbar Spine 2 Or 3 Views (Generic) (10/09/2021 9:30 AM EST) Anatomical Region Laterality Modality L-spine N/A Digital Radiogra phy Impressions 10/09/2021 11:30 AM EST Post L4-S1 posterior instrumented effusion, without complication. I have personally reviewed the image(s) and the resident's interpretation and agree with the findings, Kermit Reyna MD at 10/09/2021 11:30 AM Thank you for letting us participate in the care of this patient. ??If you are a health care provider and have any questions regarding this report, please contact the number below. ??For patients who have questions please contact the health day care teacher that requested your imaging first. ? Electronically signed by: Kermit Reyna MD, [facility] ([phone]), at 10/09/2021 11:30 AM Narrative 10/09/2021 11:30 AM EST EXAMINATION: XR LUMBAR SPINE 2 OR 3 VIEWS (GENERIC) CLINICAL HISTORY: s/p fusion TECHNIQUE: 2 views of the lumbar spine COMPARISON: Lumbar spine x-ray dated 08/10/2021. FINDINGS: Posterior fusion hardware from L4 through S1. The hardware is intact. No evidence of loosening. Minimal levoscoliosis centered at L4-L5. Grade 1 anterolisthesis of L4 on L5, and L5 on S1, unchanged. Vertebral body heights are largely maintained. Mild disc height loss at L3-L4, L4-L5, and L5-S1. Procedure Note Kermit Reyna MD - 10/09/2021 EXAMINATION: XR LUMBAR SPINE 2 OR 3 VIEWS (GENERIC) CLINICAL HISTORY: s/p fusion TECHNIQUE: 2 views of the lumbar spine COMPARISON: Lumbar spine x-ray dated 08/10/2021. FINDINGS: Posterior fusion hardware from L4 through S1. The hardware is intact. No evidence of loosening. Minimal levoscoliosis centered at L4-L5. Grade 1 anterolisthesis of L4 on L5, and L5 on S1, unchanged. Vertebral bodyheights are largely maintained. Mild disc height loss at L3-L4, L4-L5, and L5-S1. IMPRESSION Post L4-S1 posterior instrumented effusion, without complication. I have personally reviewed the image(s) and the resident's interpretationand agree with the findings, Kermit Reyna MD at 10/09/2021 11:30 AM Thank you for letting us participate in the care of this patient. If youare a health care provider and have any questions regarding this report,please contact the number below. For patients who have questions please contactthe health day care teacher that requested your imaging first. Rios Acuna MD IMG DX ORDERABLES documented in this encounter Visit Diagnoses Diagnosis s/p Right L4-5 hemilaminectomy and L4-S1 instrumented fusion on 07/11/21 (Dr. Acuna) Arthrodesis status documented in this encounter Care Teams Harness Puller Relationship Specialty Start Date End Date Cb Florence PA [address] [place] [address] PCP - General Family Medicine 04/08/20 documented as of this encounter
--- OUTSIDE RECORDS SUMMARY | 2024-03-17 18:26 | XMS_ITS | Encounter Summary ---
[place] [address] Care Team Providers Care Drafter Detail Name Role Phone Cb Florence Primary Care Provider +1- [phone] Encounter Details Date Type Department Care Team (Late st Contact Info) Description 07/31/2021 Telephone [facility] [place] [address] Agueda Coker RN Social History Tobacco Use Types Packs/Day [...] encounter Miscellaneous Notes * Telephone Encounter - Agueda Coker RN - 07/31/2021 10:26 AM EST Pt called into the operating room manager line and left a message asking if anyone has had the chance to review the photo of her incision. Message routed to the Spine Center nurses. documented in this encounter Plan of Treatment Not on file documented as of this encounter Visit Diagnoses Not on filedocumented in this encounter Care Teams Drafter Detail Relationship Specialty Start Date End Date Cb Florence PA [address] [place] [address] PCP - General Family Medicine 04/08/20 documented as of this encounter
--- OUTSIDE RECORDS SUMMARY | 2024-03-17 18:26 | XMS_ITS | Encounter Summary ---
[place] [address] Care Team Providers Care Winding Rack Operator Name Role Phone Cb Florence Primary Care Provider +1- [phone] Encounter Details Date Type Department Care Team (Late st Contact Info) Description 01/12/2022 [place] [phone] Daniela Singh Social History Tobacco Use Types Packs/Day Years [...] on filedocumented in this encounter Care Teams Winding Rack Operator Relationship Specialty Start Date End Date Cb Florence PA [address] [place], [place] [id number] PCP - General Family Medicine 04/08/20 documented as of this encounter
--- OUTSIDE RECORDS SUMMARY | 2024-03-17 18:26 | XMS_ITS | Encounter Summary ---
Author Organization [facility] [place] [address] Care Team Providers Care Assembler Corncob Pipes Name Role Phone Cb Florence Primary Care Provider [phone]- [phone] Reason for Visit * Auth/Cert Specialty Diagnoses [...] Expiration Date Visits Re quested Visits Authorized [id number] 1 1 Encounter Details Date Type Department Care Team (Latest Contact Info) Description 07/11/2021 9:12 AM EST - 07/14/2021 2:10 PM EST Hospital Encounter [address] [place] [address] Rios Gonzalez MD [facility] [place] [address] s/p Right L4-5 hemilaminectomy and L4-S1 instrumented fusion on 07/11/21 (Dr. Gonzalez) (Primary Dx); Spondylolisthesis of lumbar region Discharge Disposition: Home [...] Sign Reading Time Taken Comments Blood Pressure 124/74 07/14/2021 12:34 PM EST Pulse 90 07/14/2021 3:43 AM EST Temperature 37 ??C (98.6 ??F) 07/14/2021 12:34 PM EST Respiratory Rate 17 07/14/2021 12:34 PM EST Oxygen Saturation 93% 07/14/2021 12:34 PM EST Inhaled Oxygen Concentration - - Weight 87.5 kg (193 lb) 07/12/2021 12:06 PM EST Height 154.9 cm (5' 0.98) 07/12/2021 12:[address] Body Mass Index 36.49 07/12/2021 12:06 PM EST documented in this encounter Discharge Summaries * Keren Hammond APRN - 07/14/2021 12:36 PM EST Images from the original note were not included. Discharge Summary Patient Name: Poppy Mclaughlin Patient Age: 60 y.o. Language: Citizen Of [place] Race: White Ethnicity: Not nor Admit date: 07/11/2021 Discharge date and time: 07/14/2021 Attending Physician: Rios Gonzalez MD Discharge Physician: Rios Gonzalez MD Follow-up Recommendations for Providers: See discharge instructions for additional details. Future Appointments Date Time Provider Department Center 08/10/2021 3:[address] [facility] DX ROOM [address] [facility] Rad 08/10/2021 3:40 PM Rios Gonzalez MD [facility] Pain Sp [facility] Inpatient Provider Contact Information: Rios Gonzalez MD Spine Center: [phone] After hours and weekends, call [facility] Pediatrics Teacher, , and have the Orthopedic resident paged. Discharge Diagnoses (Hospital Problems) and Secondary Diagnoses (Chronic Problems): Active Hospital Problems Diagnosis ??? s/p Right L4-5 hemilaminectomy and L4-S1 instrumented fusion on 07/11/21 (Dr. Gonzalez) Resolved Hospital Problems No resolved problems to display. Active Non-Hospital Problems Diagnosis ??? Spondylolisthesis ??? Influenza due to [...] Multiple nodules of lung ??? Abdominal distention Operations/Major Procedures: 07/11/2021 Surgeon(s) and Role: * Rios Gonzalez MD - Primary * Demetris Blakely MD - Resident Procedure(s): 1. L4-S1 posterolateral fusion 2. Right L4-L5 revision transpedicular discectomy 3. Right L4-L5 hemilaminectomy with facetectomy and foraminotomies 4. Pedicle screw instrumentation L4-S1 5. Right iliac crest bone grafting Operative findings: There was severe foraminal stenosis on the right at L4-L5 due to scar formationand a recurrent foraminal and far lateral disk herniation. There was moderate right L4-L5 lateral recess stenosis. At the conclusion of the case the right L4 and L5 roots were fully decompressed. History of Presentation: Poppy Mclaughlin is a 60 y.o. female who had previously undergone a right L4-L5 far lateral discectomy with a good result. She subsequently developed back pain radiating to her right lower extremity in the setting of spondylolisthesis at L4-L5 and L5-S1 with a right L4-L5 recurrent foraminal and farlateral disc herniation and right L4-L5 lateral recess stenosis. She failed to improve despite nonoperative treatment and elected undergo surgery after a full discussion of the potential risks and benefits thereof. ?? Hospital Course: Poppy Mclaughlin was admitted for the above operation. Operative course was uneventful. On POD#1 shewas allowed out of bed ad thomas, with no bending or twisting, no lifting more than10 pounds, and no pushing or pulling. These parameters were reinforced by physical and occupational therapy. Poppy Mclaughlin was changed to oral pain medications on POD#1 and was comfortable after adjustments were made.The hernadez catheter was removed on POD#1 and she was voiding without difficulty. The drain was removed on POD#2. On POD#2 the dressing was dry and intact and the wound was benign. She did have a bowel movement prior to discharge and was passing flatus and taking PO without difficulty. Prior to discharge on POD#3 Poppy Mclaughlin was afebrile, with stable vital signs, ON ROOM AIR, successfully cleared PT and was deemed stable for discharge to home. Vital Signs at Discharge: Weight: Wt Readings from Last 1 Encounters: //21 87.5 kg (193 lb) Height: Ht Readings from Last 1 Encounters: //21 154.9 cm (5' 0.98) HC: HC Readings from Last 1 Encounters: No data found for HC BMI: Body mass index is 36.49 kg/m??. Last value Range last 24 hrs Temperature Temp: 37 ??C (98.6 ??F) Temp: [36.7 ??C (98.1 ??F)-37.3 ??C (99.1 ??F)] Heart Rate Heart Rate: 90 Heart Rate: [90] Blood Pressure BP: 124/74 BP: (101-145)/(70-86) Respiratory Rate Resp: 17 Resp: [16-20] SpO2 SpO2: 93 % SpO2: [88 %-94 %] Functional and Cognitive Status: Patient mobilizing with a walker, cognitively intact at baseline mental status at time of discharge. Important Lab Data: Last 3 wbc, hgb, hct plt Recent Labs 07/12/21 0220 07/11/21 0901 WBC 13.9* 9.3 HGB 10.2* 12.6 HCT 32.2* 39.7 PLATELET 168 207 Last 3 Lytes Recent Labs 07/14/21 1133 07/13/21 0926 07/12/21 0220 NA 137 137 140 K 4.4 4.1 4.8 CL 99 102 105 CO2 27 26 25 BUN 16 20* 17 CREATININE 0.96 1.11 1.12 Last Ca, Mg, Phos Recent Labs 07/14/21 1133 CALCIUM 9.8 MAGNESIUM 0.87 Studies: XR Fluoro No Rad <1Hr - OR Use Result Date: 07/11/2021 This exam is auto-finalizing. No interpretation was done. XR Lumbar Spine 2 Or 3 Views (Generic) Result Date: 07/11/2021 EXAMINATION: XR LUMBAR SPINE 2 OR 3 VIEWS (GENERIC) CLINICAL HISTORY: S/p L4-S1 instrumented fusionand L4-5 right sided decompression TECHNIQUE: 2 views of the lumbar spine are provided for review. COMPARISON: 05/04/2021 FINDINGS/IMPRESSION: Patient is status posterior williams and interlocking transpedicular screws fixation from L5 to S1 without immediate postoperative complication. There is residual 9.0 mm anterolisthesis of L5 on S1 and 3.5 mm anterolisthesis of L4 on L5. Expected postoperative changes are noted in the soft tissues. Thank you for letting us participate in the care of this patient. If you are a health care provider and have any questions regarding this report, please contact the number below. For patients who have questions please contact the health memory care program resident that requested your imaging first. Electronically signed by: Bianca Mcdonnell MD, [facility] ([phone]), at 07/11/2021 7:55 PM Pending Studies and Lab Data at Discharge: * No orders in the log * Transfusions: No Discharge Conditions/Prognosis: Stable, awake, and alert. Mobilizing as noted above, pain controlled on oral medications. Discharge to: [facility]: [facility]. PHONE: [phone] FAX: [phone] Updated Allergies/ADRs: Allergies Allergen Reactions ??? Pneumococcal Vaccine Other (See Comments) Cold/Flu like symptoms ??? Albuterol Other (See Comments) Liquid--Per patient, she gets hyperactivity. Immunizations Given this Hospitalization: There is no immunization history on file for this patient. Discharge Medications: Your Medications New Medications Dose Details oxyCODONE 5 mg Tab Commonly known as: Roxicodone Take 0.5-1 tablets by mouth every 4 hours as needed for Pain. 2.5-5 mg Quantity: 30 tablet Refills: 0 polyethylene glycoL 17 gram/dose Powd Commonly known as: Miralax Take 17 g by mouth 2 times daily as needed for up to 30 days. 17 g Refills: 0 senna-docusate 8.6-50 mg Tab Commonly known as: Pericolace Take 2 tablets by mouth 2 times daily as needed for Constipation for up to 30 days. 2 tablet Refills: 0 Continued medications with new dosing Dose Details acetaminophen 500 mg Tab Commonly known as: Tylenol Take 2 tablets by mouth every 6 hours. What changed: ?? when to take this ?? reasons to take this 1,000 mg Refills: 0 diphenoxylate-atropine 2.5-0.025 mg Tab Commonly known as: LomotiL Take 1 tablet by mouth 4 times daily. DO NOT restarted this unless you are having diarrhea. What changed: ?? when to take this ?? reasons to take this 1 tablet Quantity: 120 tablet Refills: 7 Continued medications, unchanged Dose Details * albuteroL 90 mcg/actuation Hfaa Inhale 2 puffs into the lungs every 4 hours as needed. Use with spacer 2 puff Refills: 0 * albuteroL 2.5 mg /3 mL (0.083 %) Nebu Commonly known as: Proventil Take 2.5 mg by nebulization every 4 hours as needed for Wheezing. 2.5 mg Refills: 0 baclofen 10 mg Tab Commonly known as: Lioresal Take 10 mg by mouth 3 times daily. Takes 20mg at night 10 mg Refills: 0 Belsomra 10 mg Tab TAKE 1 TABLET BY MOUTH ONCE DAILY AT BEDTIME Generic drug: suvorexant Refills: 0 benzonatate 100 mg Cap Commonly known as: Tessalon Take 100 mg by mouth 3 times daily as needed for Cough. 100 mg Refills: 0 buPROPion SR 200 mg Sr12 Commonly known as: Wellbutrin SR daily. Refills: 0 Chantix Starting Month Box 0.5 mg (11)- 1 mg (42) Dspk TAKE 1 TABLET BY MOUTH IN MORNING WITH FOOD FOR 3 DAYS THEN INCREASE TO 1 TABLET BY MOUTH TWICE DAILY WITH FOOD THEREAFTER DIRECTED ON PA Generic drug: varenicline Refills: 0 chlorpheniramine 4 mg Tab Commonly known as: Chlor-Trimeton Take 4 mg by mouth every 6 hours as needed for Allergies. 4 mg Refills: 0 cholecalciferol (Vitamin D3) 400 unit Tab Commonly known as: Vitamin D3 Take 400 Units by mouth daily. 400 Units Refills: 0 diazePAM 5 mg Tab Commonly known as: Valium TAKE 1 TABLET BY MOUTH TWICE DAILY NEEDED FOR PAIN Refills: [address] 30 mg Cpdr Commonly known as: Cymbalta TAKE 1 CAPSULE BY MOUTH ONCE DAILY Refills: 0 fluconazole 150 mg Tab Commonly known as: Diflucan as needed. Refills: 0 guaiFENesin ER 600 mg Ta12 Commonly known as: Mucinex Take 1 tablet by mouth 2 times daily. 600 mg Quantity: 60 tablet Refills: 11 inhalational spacing device Spcr Commonly known as: Joshua Aerosol Beadle Enhancer 2 puffs by Misc.(Non-Drug; Combo Route) route daily. 2 puff Refills: 0 lisinopriL 10 mg Tab Commonly known as: Zestril daily. Refills: 0 loratadine 10 mg Tab Commonly known as: Claritin Take 10 mg by mouth daily. 10 mg Refills: 0 CLASSIC OXYGEN CONCENTRATOR MISC 3 L by [facility].(Non-Drug; Combo Route) route nightly. 3 L Refills: 0 Miscellaneous Medical Supply [facility] Face mask for nocturnal O2, and appropriate accessories. Quantity: 1 each Refills: PRN montelukast 10 mg Tab Commonly known as: Singulair Take 10 mg by mouth nightly. 10 mg Refills: 0 MULTIVITAMIN ORAL Take 2 tablets by mouth daily. 2 tablet Refills: 0 Narcan 4 mg/actuation [place] ADMINISTER A SINGLE SPRAY INTRANASALLY INTO ONE NOSTRIL. CALL 911. MAY REPEAT X1. Generic drug: naloxone Refills: 0 OneTouch Ultra Blue Test Strip Strp USE 1 STRIP TO CHECK GLUCOSE ONCE DAILY DIRECTED Generic drug: blood sugar diagnostic strips Refills: 0 pregabalin 150 mg Cap Commonly known as: LYRICA 2 times daily. Refills: 0 prochlorperazine 10 mg Tab Commonly known as: Compazine Take 10 mg by mouth every 8 hours as needed for Nausea. 10 mg Refills: 0 promethazine 25 mg Tab Commonly known as: Phenergan Take 25 mg by mouth every 6 hours as needed. 25 mg Refills: 0 rosuvastatin 10 mg Tab Commonly known as: Crestor Take 10 mg by mouth nightly. 10 mg Refills: 0 Symbicort 160-4.5 mcg/actuation Hfaa Inhale 2 puffs into the lungs 2 times daily. Generic drug: budesonide-formoteroL 2 puff Refills: 0 traZODone 50 mg Tab Commonly known as: Desyrel nightly. Refills: 0 triamcinolone 0.1 % Oint Commonly known as: Kenalog APPLY A SMALL AMOUNT OF OINTMENT TOPICALLY TO AFFECTED AREA AROUND EYE TWICE DAILY Refills: 0 VITAMIN C ORAL Take 1 tablet by mouth daily. 1 tablet Refills: 0 * This list has 2 medication(s) that are the same as other medications prescribed for you. Read thedirections carefully, and ask your doctor or other care provider to review them with you. STOPPED Medications citalopram 40 mg Tab Commonly known as: celeXA fluticasone propionate 50 mcg/actuation Spsn Commonly known as: Flonase gabapentin 600 mg Tab Commonly known as: NEURONTIN ipratropium 42 mcg (0.06 %) [place] Commonly known as: ATROVENT meloxicam 15 mg Tab Commonly known as: MOBIC sulfamethoxazole-trimethoprim DS 800-160 mg Tab Commonly known as: Bactrim DS traMADoL 50 mg Tab Commonly known as: Ultram Viberzi 100 mg Tab Generic drug: eluxadoline Smoking Status at Discharge: Social History Tobacco Use Smoking Status Former Smoker ??? Packs/day: 1.00 ??? Years: 20.00 ??? Pack years: 20.00 ??? Types: Cigarettes Smokeless Tobacco Never Used Instructions for Rehab Providers or PCP: See below Instructions Given to Patient at Discharge: Patient Instructions Activity: 1. You may perform your daily activities as tolerated but minimize bending at the waist greater than 90 degrees, twisting around your waist, or lifting anything heavier than 5-10 lbs (about a full gallon of water). 2. In general, guide your activity by the thought that if it hurts, don???t do it. 3. In addition, we recommend taking several walks every day after surgery and gradually increasing your distance and duration over the next 2-4 weeks. Diet: 1. Eat your normal diet, with adequate amounts of protein and fiber. 2. The pain medications you are taking can cause constipation, so increase your intake of fluids and fiber while you are taking them. 3. You should also take an aygp-iwu-kwukbve stool softener of laxative, such as Miriam-colace or Miralax, to facilitate a bowel movement. Drivin. You are not allowed to drive if you are still requiring narcotic pain medication to manage your discomfort. 2. In general, you may begin to drive once you are off of your pain medications and you are comfortable. Call the Spine Center or your Primary Care Physician if you have questions or concerns. Medication: 1. You are being discharged on a narcotic pain medication. Common side effects of this medication include drowsiness, nausea, and constipation. You should only take the smallest amount of pain medication that adequately controls your pain. 2. You may take Tylenol (acetaminophen) around the clock as directed on the package insert to help reduce the amount of narcotic medication you need. Do not take more than 3,000mg of acetaminophen henrry 24 hour period. 3. You have had a spinal fusion surgery. DO NOT take any nonsteroidal anti- inflammatory medication (NSAID) such as Aleve, Ibuprofen, Motrin, Naprosyn, or Advil. 4. If you need a renewal of your pain medication, please contact the Spine Center Prescription Lineat [phone]. PRESCRIPTION RENEWAL REQUESTS CAN TAKE UP TO 3 DAYS TO FILL. YOU WILL BE REQUIRED TO CHEMICAL DEPENDENCY ATTENDANT YOUR NARCOTIC REFILL PRESCRIPTION IN PERSON AT [facility] OR IT CAN BE MAILED TO YOUR PHARMACY. Wound Care/Shower/Bath: 1. You have sutures that need to be removed 3 weeks after your surgery (approximately 08/01/21). This can be done by your VISITING NURSE. The sutures are covered by a silver Mepilex dressing. 2. This dressing should stay in place until 7 days after your surgery. After 7 days, on 07/18/21, you may remove the dressing and leave the incision uncovered so long as there is no continued drainage. If there is drainage, you may replace the dressing with a clean, dry gauze held in place with tape. Any bandage over the incision should be dry at all times and should be replaced if wet. If the incision continues to drain 5 days after surgery, please call the Spine Center at the number below. 3. For the first 7 days after surgery, shower with the clear plastic Tegaderm dressing covering your incision to keep it dry. After 7 days when the dressing has been removed, you may allow water to run over the incision when you shower but do not scrub the surrounding skin. Gently pat dry with a clean, dry towel after showering. 4. Do not soak the incision underwater (i.e. lakes, pools, hot tubs, bath tubs, etc.) for at least 4 weeks until the incision has completely healed. Smoking Cessation: - Smoking impairs wound healing and can increase your risk of infection. If you are a smoker, you need to quit smoking today to help you recover after surgery and encourage your healing. - You should contact your PCP to assist you with setting up a cessation program and helping you achieve a smoke-free lifestyle. You can also call local [place] or [place] quit lines for additional assistance. [place] Quit Line: 5-989-FYPR-NOW Online at [employer] [place] Quit Line: 1-011-OELN-NOW Online at [employer] PLEASE CALL US AT [phone] TO SPEAK WITH A SPINE CENTER NURSE IF YOU EXPERIENCE THE FOLLOWING: ?? Fevers greater than 101.5 degrees Fahrenheit ?? Chills or night sweats ?? Nausea or vomiting ?? Wound Redness or drainage after 5 days ?? New numbness or tingling in your hands or feet ?? Incontinence of bowel or bladder ?? Any questions or concerns Important Phone Numbers: Clinical issues, nurse questions, medication renewals: [phone] Gonzalez: [phone] Evenings after 5pm and weekends you may contact the Orthopaedic resident stonemason apprentice: [phone], askthe head sugar reprocess operator to page the Orthopaedic resident Follow Up Appointments: 1. You will have follow-up appointments at [facility] as indicated in the ???Future Appointments and Orders?? section of your discharge summary. If X-rays have been ordered for you prior to this appointment you will need to report to the Radiology department, desk 3T, 1 hour prior to your spine center appointment. Future Appointments Date Time Provider Department Center 08/10/2021 3:[address] [facility] DX ROOM [address] [facility] Rad 08/10/2021 3:40 PM Rios Gonzalez MD [facility] Pain Sp [facility] General Instructions None Future Appointments and Orders Future Appointments and Orders Future Appointments Provider Department Dept Phone 08/10/2021 3:[address] [facility] DX ROOM 2 XRay at [facility] Arrive at: Gaming Investigator Area 3T [phone] Please go to Gaming Investigator Area 3T ([place] Location). 08/10/2021 3:40 PM Rios Gonzalez MD Pain and Spine Center at [facility] Arrive at: Gaming Investigator Area 3D [phone] Future Orders Complete By Expires Referral to Home Health - at DISCHARGE [[id number] CPT(R)] As directed Process Instructions: Scheduling Instructions: Comments: DOCUMENTATION FOR VNA SERVICES (INCLUDING THOSE PATIENTS WITH MEDICARE COVERAGE REQUIRING HOME VNA SERVICES AND/OR HOSPICE SERVICES) PATIENT'S LOCATION: Poppy Mclaughlin [address] [place] [id number] Cell: Telephone Information: Signal Processing Engineer's Name: self/patient In discussion with the attending physician, it is certified that this patient is under their care and that they, or a Nurse Practitioner,Clinical Nurse specialist or Physician Barback who is working directly with them, had a face to face encounter that meets the physician face to face encounter requirements with this patient on 07/13/2021 The encounter with the patient was in whole, or in part, for the following medical condition, whichis the primary reason for home health care services: s/p right L4-L5 hemilaminectomy with revision right transpedicular diskectomy, L4-S1 posterolateral instrumented fusion with right iliac crest bone graft. In discussion with the provider, it is certified that, based on their findings, the following services are medically necessary for home health services. To provide the following care/treatments with the clinical findings supporting the need for services as follows: HOME CARE ORDERS: PT ORDERS: Continue rehab for endurance, gait stability and strength with mobility and transfers. Home safety evaluation. Home exercise program if appropriate. Activity: Activity as tolerated, avoiding b/t/l >5 lb Closure: Sutures (remove 21 days) - please remove approximately 08/01 Dressing: Mepilex x 7 days HOME HEALTH CARE AGENCY: [facility] PHONE: [phone] FAX: [phone] Start of care: 24 to 48 hours discharge FOR MEDICARE ONLY: (please delete this section if not Medicare) In discussion with the attending physician, it is certified that the clinical findings support thatthis patient is homebound because absences from home require considerable and taxing effort due to:requires assistance of another to navigate community surfaces Please note that any additional orders needs or changes will need to be obtained from this patient's PCP: KIARA Jesus [address] / [place] [address] All A agencies which cover the area of patient's residence have been reviewed, either verbally laila writing, and patient/family have chosen the home health care agency noted Questions: Agency name and contact information: [facility] Patient location post discharge: home What services are requested: Physical Therapy Start date: Responsible MD post discharge contact info: Primary Care Provider: KIARA Jesus [phone] Discharge References/Attachments SMOKING: STOPPING (THAI) documented in this encounter Discharge Instructions * Patient Instructions* Keren Hammond, SLITTER HELPER - 07/11/2021 4:53 PM EST Activity: 1. You may perform your daily activities as tolerated but minimize bending at the waist greater than 90 degrees, twisting around your waist, or lifting anything heavier than 5-10 lbs (about a full gallon of water). 2. In general, guide your activity by the thought that if it hurts, don???t do it. 3. In addition, we recommend taking several walks every day after surgery and gradually increasing your distance and duration over the next 2-4 weeks. Diet: 1. Eat your normal diet, with adequate amounts of protein and fiber. 2. The pain medications you are taking can cause constipation, so increase your intake of fluids and fiber while you are taking them. 3. You should also take an pvrv-gyd-fairnnw stool softener of laxative, such as Miriam-colace or Miralax, to facilitate a bowel movement. Drivin. You are not allowed to drive if you are still requiring narcotic pain medication to manage your discomfort. 2. In general, you may begin to drive once you are off of your pain medications and you are comfortable. Call the Spine Center or your Primary Care Physician if you have questions or concerns. Medication: 1. You are being discharged on a narcotic pain medication. Common side effects of this medication include drowsiness, nausea, and constipation. You should only take the smallest amount of pain medication that adequately controls your pain. 2. You may take Tylenol (acetaminophen) around the clock as directed on the package insert to help reduce the amount of narcotic medication you need. Do not take more than 3,000mg of acetaminophen henrry 24 hour period. 3. You have had a spinal fusion surgery. DO NOT take any nonsteroidal anti- inflammatory medication (NSAID) such as Aleve, Ibuprofen, Motrin, Naprosyn, or Advil. 4. If you need a renewal of your pain medication, please contact the Spine Center Prescription Lineat [phone]. PRESCRIPTION RENEWAL REQUESTS CAN TAKE UP TO 3 DAYS TO FILL. YOU WILL BE REQUIRED TO CHEMICAL DEPENDENCY ATTENDANT YOUR NARCOTIC REFILL PRESCRIPTION IN PERSON AT [facility] OR IT CAN BE MAILED TO YOUR PHARMACY. Wound Care/Shower/Bath: 1. You have sutures that need to be removed 3 weeks after your surgery (approximately 08/01/21). This can be done by your VISITING NURSE. The sutures are covered by a silver Mepilex dressing. 2. This dressing should stay in place until 7 days after your surgery. After 7 days, on 07/18/21, you may remove the dressing and leave the incision uncovered so long as there is no continued drainage. If there is drainage, you may replace the dressing with a clean, dry gauze held in place with tape. Any bandage over the incision should be dry at all times and should be replaced if wet. If the incision continues to drain 5 days after surgery, please call the Spine Center at the number below. 3. For the first 7 days after surgery, shower with the clear plastic Tegaderm dressing covering your incision to keep it dry. After 7 days when the dressing has been removed, you may allow water to run over the incision when you shower but do not scrub the surrounding skin. Gently pat dry with a clean, dry towel after showering. 4. Do not soak the incision underwater (i.e. lakes, pools, hot tubs, bath tubs, etc.) for at least 4 weeks until the incision has completely healed. Smoking Cessation: - Smoking impairs wound healing and can increase your risk of infection. If you are a smoker, you need to quit smoking today to help you recover after surgery and encourage your healing. - You should contact your PCP to assist you with setting up a cessation program and helping you achieve a smoke-free lifestyle. You can also call local [place] or [place] quit lines for additional assistance. [place] Quit Line: 1-938-VPHR-NOW Online at [employer] [place] Quit Line: 6-623-EFHC-NOW Online at quitnoCoSchedule.org PLEASE CALL US AT [phone] TO SPEAK WITH A SPINE CENTER NURSE IF YOU EXPERIENCE THE FOLLOWING: ?? Fevers greater than 101.5 degrees Fahrenheit ?? Chills or night sweats ?? Nausea or vomiting ?? Wound Redness or drainage after 5 days ?? New numbness or tingling in your hands or feet ?? Incontinence of bowel or bladder ?? Any questions or concerns Important Phone Numbers: Clinical issues, nurse questions, medication renewals: [phone] Gonzalez: [phone] Evenings after 5pm and weekends you may contact the Orthopaedic resident stonemason apprentice: [phone], askthe head sugar reprocess operator to page the Orthopaedic resident Follow Up Appointments: 1. You will have follow-up appointments at [facility] as indicated in the ???Future Appointments and Orders?? section of your discharge summary. If X-rays have been ordered for you prior to this appointment you will need to report to the Radiology department, desk 3T, 1 hour prior to your spine center appointment. Future Appointments Date Time Provider Department Center 08/10/2021 3:[address] [facility] DX ROOM [address] [facility] Rad 08/10/2021 3:40 PM Rios Gonzalez MD [facility] Pain Sp [facility] * Attachments The following attachments cannot be sent through Care Everywhere. * SMOKING: STOPPING (THAI) documented in this encounter Medications at Time of Discharge Medication Sig Dispensed Refills Start Date End Date acetaminophen (Tylenol) 500 mg Tablet Take 2 tablets by mouth every 6 hours. 0 07/14/[address] (Cymbalta) 30 mg Capsule, Delayed Release(E.C.) TAKE 1 CAPSULE BY MOUTH ONCE DAILY 03/17/2021 Narcan 4 mg/actuation [place], Non-Aerosol ADMINISTER A SINGLE SPRAY INTRANASALLY INTO [...] CLASSIC OXYGEN CONCENTRATOR MISC) 3 L by [facility].(Non-Drug; Combo Route) route nightly. diphenoxylate-atropin e (LOMOTIL) 2.5-0.025 mg Tablet Take 1 tablet by mouth 4 times daily. DO NOT restarted this unless you are having diarrhea. 120 tablet 7 06/11/2014 albuterol (PROVENTIL HFA;VENTOLIN HFA) 90 mcg/actuation HFA Aerosol Inhaler Inhale 2 puffs into the lungs every 4 hours as needed. Use with spacer Inhalational Spacing Device Spcr [facility]Non-Drug; Combo Route) route daily. promethazine (PHENERGAN) 25 mg tablet Take 25 mg by mouth every 6 hours as needed. MULTIVITAMIN ORAL Take 2 tablets by mouth daily. ASCORBATE CALCIUM (VITAMIN C ORAL) Take 1 tablet by mouth daily. Belsomra 10 mg Tablet TAKE 1 TABLET [...] up to 30 days. 0 07/14/2021 08/13/2021 oxyCODONE (Roxicodone) 5 mg Tablet Take 0.5-1 tablets by mouth every 4 hours as needed for Pain. 30 tablet 07/14/2021 07/20/2021 documented as of this encounter Progress Notes * Lucretia Samuel RN - 07/14/2021 2:06 PM EST Patient discharged to home w/ VNA. A&Ox4, VSS on RA. IV removed, site benign. My assessment remains unchanged from my previous assessment. Dressing to incision CDI. RN Discussed pain management with patient, pain tolerable. Patient medicated prior to discharge. Patient has all belongings and supplies needed. Patient received After Visit Summary, patient verbalizes understanding of AVS. All questions answered. Patient encouraged to call with questions or concerns. Patient discharged to home with family. * Rios Gonzalez MD - 07/14/2021 6:05 AM EST ORTHOPAEDIC SURGERY INPATIENT PROGRESS NOTE Patient Name: Poppy Mclaughlin Age: 60 y.o. Surgery/Issue: Right L4-L5 hemilaminectomy with revision right transpedicular diskectomy, L4-S1 posterolateral instrumented fusion with right iliac crest bone graft Attending: Dr. Gonzalez Date of surgery: 07/11/2021 SUBJECTIVE / INTERVAL HISTORY: Afebrile, VSS on 4L NC. Pain well controlled. Patient denies new numbness/weakness, chest pain, shortness of breath, nausea, vomiting. Did not clear PT yesterday, but anticipating clearance to home, was able to progress with stairs. Drain removed yesterday. No BM, but is passing flatus. Pre-op Symptoms: Back pain that radiates to her right buttock, anterolateral thigh, anteromedial leg; worse with prolonged sitting or standing, activities. Pre-op symptoms currently present: Denies leg pain since surgery. Improvement in sensation in her thigh as well as foot. Less tingling in her leg. FOCUSED REVIEW OF SYSTEMS: as above. Active Hospital Problems Diagnosis ??? s/p Right L4-5 hemilaminectomy and L4-S1 instrumented fusion on 07/11/21 (Dr. Gonzalez) Resolved Hospital Problems No resolved problems to display. Active Non-Hospital Problems Diagnosis ??? Spondylolisthesis ??? Influenza due to [...] Multiple nodules of lung ??? Abdominal distention MEDICATIONS: ??? lidocaine (Lidoderm) 5% patch 3 patch AND lidocaine (Lidoderm) topical patch REMOVAL ??? melatonin tablet 6 mg ??? acetaminophen (Tylenol) tablet 1,000 mg ??? lactulose (Chronulac) (0.67 gram/mL) oral liquid 20 g ??? bisacodyl EC (Dulcolax) tablet 10 mg ??? bisacodyL (Dulcolax) suppository 10 mg ??? oxyCODONE (Roxicodone) tablet 2.5 mg OR oxyCODONE (Roxicodone) tablet 5 mg OR [DISCONTINUED] oxyCODONE (Roxicodone) tablet 15 mg ??? budesonide-formoteroL (Symbicort) 160-4.5 mcg/actuation inhaler 2 Inhalation ??? gelatin adsorbable 100 (Gelfoam) sponge ??? thrombin (Bovine) (Thrombinar) kit ??? vancomycin (Vancocin) injection ??? BUpivacaine (pf) (Marcaine) (2.5 mg/mL) 0.25% injection ??? albuteroL (Proventil) nebulizer solution 2.5 mg ??? ascorbic acid (Vitamin C) (Vitamin C) tablet 500 mg ??? benzonatate (Tessalon) capsule 100 mg ??? buPROPion SR (Wellbutrin SR) tablet 200 mg ??? DULoxetine DR (Cymbalta) capsule 30 mg ??? lisinopriL (Zestril) tablet 10 mg ??? montelukast (Singulair) tablet 10 mg ??? pregabalin (Lyrica) capsule 150 mg ??? rosuvastatin (Crestor) tablet 10 mg ??? traZODone (Desyrel) tablet 50 mg ??? sodium chloride 0.9 % (flush) (BD PosiFlush Normal Saline 0.9) flush 5 mL ??? sodium chloride 0.9 % (flush) (BD PosiFlush Normal Saline 0.9) flush 5-20 mL ??? polyethylene glycoL (Miralax) packet 17 g ??? senna-docusate (Pericolace) 8.6-50 mg per tablet 2 tablet ??? ondansetron (pf) (Zofran) (2 mg/mL) injection 4 mg ??? multivitamin with minerals (Thera M) tablet 1 tablet OBJECTIVE: Temp: [36.7 ??C (98.1 ??F)-37.3 ??C (99.1 ??F)] Heart Rate: [90] Resp: [16-20] BP: (101-145)/(70-86) SpO2: [88 %-93 %] Heart Rate from SpO2: [74 bpm-94 bpm] Intake/Output Summary (Last 24 hours) at 07/14/2021 0630 Last data filed at 07/13/2021 2118 Gross per 24 hour Intake 904 ml Output 1650 ml Net -746 ml Body mass index is 36.49 kg/m??. Drain output: Removed 07/13/21 Exam: General: NAD, awake/alert, responds to questions CV: RRR assessed peripherally Resp: Breathing comfortably on 3L NC Back: Dressing c/d/i, no hematoma. Drain to bulb suction. Motor: Segment Muscle Action R L L2 Iliopsoas Hip flexion 5 5 L3 Quadriceps Knee extension 5 5 L4,5 Hamstring Knee Flexion 5 5 L4 Tibialis anterior Dorsiflexion 4+ 5 L5 Extensor hallucis Great toe extension 4+ 5 S1 Gastrocnemius, FHL Plantar flexion 5 5 Sensory: Sensation (light touch) (0=absent, 1=impaired, 2=normal) Segment Location Right Left L1 upper inner thigh 2 2 L2 mid-ant thigh 2* 2 L3 med femoral condyle 2 2 L4 Anteromedial leg 1 2 L5 dorsum foot, 3rd MT 2* 2 S1 lat heal 2 2 S2 Popliteal fossa 2 2 * Some residual tingling in these distributions, but sensation improved to nearly normal by patientreport. Lab Results Component Value Date NA 137 07/13/2021 K 4.1 07/13/2021 CL 102 07/13/2021 CO2 26 07/13/2021 BUN 20 (H) 07/13/2021 CREATININE 1.11 07/13/2021 GLUCOSE 146 07/13/2021 GLUCFASTING 126 (H) 11/16/2018 CALCIUM 9.0 07/13/2021 Lab Results Component Value Date WBC 13.9 (H) 07/12/2021 HGB 10.2 (L) 07/12/2021 HCT 32.2 (L) 07/12/2021 MCV 94.2 07/12/2021 PLATELET 168 07/12/2021 Lab Results Component Value Date INR 1.0 07/11/2021 IMAGING: Xray lumbar spine demonstrates interval placement of posterior instrumentation and pedicle screws from L4-S1. No obvious acute post operative complications. ASSESSMENT / PLAN: Poppy Mclaughlin is a 60 y.o. female 3 Days Post-Op s/p right L4-L5 hemilaminectomy with revision right transpedicular diskectomy, L4-S1 posterolateral instrumented fusion with right iliac crest bone graft. Progressing well post operatively. Pain well controlled. Hernadez removed. Hgb drop to 10.2 from 12.6 on POD1 consistent with acute post operative blood loss anemia. Drain removed on POD2. Discharge pending repeat evaluation by PT/OT today. Activity: Activity as tolerated, avoiding b/t/l >5 lb Closure: Sutures (remove 21 days) Dressing: Mepilex x 7 days Drain: 1 drain, 10 holes, removed on 07/13/21 Anticoagulation: Hold x 72h Antibiotics: Periop Consults: PT/OT Dispo:Pending PT/OT Follow-up: 08/10/21 Demetris Blakely MD Orthopaedic Surgery PGY4 07/14/2021 Future Appointments Date Time Provider Department Center 08/10/2021 3:[address] [facility] DX ROOM [address] [facility] Rad 08/10/2021 3:40 PM Rios Gonzalez MD [facility] Pain Sp [facility] Spine Attending I have seen and examined the patient and agree with the resident's findings and plan. She reports well-controlled surgical site pain, no LE pain. Mobilizing well with PT. Neuro exam as above. Ready for d/c home today. * Alisha Hawkins RN - 07/13/2021 6:44 PM EST OUTCOME EVALUATION NOTE: OUTCOME SUMMARY: Patient a/ox4, lethargic throughout shift, team aware, PRN pain meds only given 1x. Patient's pain adequately controlled with scheduled and PRN medications, see MAR for medications given, PRN oxy dose reduced. VSS on 2L NC, increased to 3-4L while asleep. Dressing to spine C/D/I. BAUDILIO drain removed. PIV intact, IVF stopped. Tolerating regular diet. LBM 07/11, PRN Lactulose given. OOB to ambulate inhall with OT. Plan Moving Forward is to d/c tomorrow with FWW, pt has portable home O2 concentrator. Will continue to monitor and help patient reach d/c goals. PLAN MOVING FORWARD: Pain control Mobilize Monitor LOC Monitor desat while asleep PRN bowel meds to promote BM D/C planning INDIVIDUALIZED FALL PREVENTION: Patient is currently a high risk to Fall. Patient educated on bed/chair alarm, demonstrates proper use of call thomas and verbalizes understanding of fall preventions implemented. Patient-specific fall risk factors per assessment: [current deficits]: PIV, O2 tubing, Pain, Medications, Hospital Environment, Impaired Mobility, Recent Surgery Assistance [level of assistance required for transfers and ambulation]: SBA with FWW Supervision [direct monitoring required during toileting and ADLs]: Moderate assitance with ADL's Surveillance [continuous indirect monitoring]: Lynn, Purposeful Rounding, Nurse Knowledge Exchange at Bedside, Bed Alarm Set * Jonna Herzog OTA - 07/13/2021 3:11 PM EST Occupational Therapy Treatment #2 Patient profile: Poppy Mclaughlin is a 60 y.o. R handed female who is s/p L4-5 hemilaminectomy and L4-S1 fusion with R iliac bone graft on 07/11/21. Past Medical History: Diagnosis Date ??? Allergy liquid abuterol, egg sensitivity ??? Breathing problem im seeing dr zapata ??? Chronic pain ??? Diabetes mellitus 03/19/2016 ??? Digestive problems 12- ?? gerd, nutcracker syndrome abdominal gistention dr [...] SPINE SURGERY ONLY; STRUCTUAL performed by Rios Gonzalez MD at [facility] MAIN OR ??? PRO ANTERIOR INSTRUMENTATION 2-3 VERTEBRAL SEGMENTS 09/08/2013 @ANT. SPINAL INSTRUMENTATION, 2-3 VERTEBRA, SEGMENTED performed by Rios Gonzalez MD at [facility] [place] ??? PRO ARTHRD ANT INTERDY CERVCL BELW C2 EA ADDL NTRSPC 09/08/2013 @ARTHRODESIS ANT INTERBDY CERVCL BELOW C2 EA ADDL INTRSPACE performed by Rios Gonzalez MD at [facility] MAIN OR ??? PRO ARTHRODESIS, ANT INTERBODY,DECOMPRESSION; CERVICAL BELOW C2 09/08/2013 ARTHRODESIS, ANT INTERBODY,DECOMPRESSION; CERVICAL BELOW C2 performed by Rios Gonzalez MD at [facility] MAIN OR ??? PRO AUTOGRAFT SPINE SURGERY MORSELIZED SEP INCISION Bilateral 07/11/2021 AUTOGRAFT FOR SPINE SURGERY ONLY; MORSELIZED (THROUGH SEPARATE SKIN OR FASCIAL INCISION) (WRVU 2.79) performed by Rios Gonzalez MD at [facility] MAIN OR ??? PRO DECOMPRESS SPINAL CORD, 1 SEG Right 08/31/2014 TRANSPEDICULAR LUMBAR DECOMPRESSION SPINAL CORD,EQUINA & NERVE ROOTS, ONE LVL. performed by Rios Gonzalez MD at [facility] OR ??? PRO DECOMPRESS SPINAL CORD, 1 SEG N/A 07/11/2021 TRANSPEDICULAR LUMBAR DECOMPRESSION SPINAL CORD,EQUINA & NERVE ROOTS, ONE LVL. (WRVU 21.86) performed by Rios Gonzalez MD at [facility] MAIN OR ??? PRO LAMINEC/FACETECT/FORAMIN, EACH ADDNL Bilateral 07/11/2021 ADD'L INTERSPACES CX., THORACIC, LUMBAR (WRVU 3.47) performed by Rios Gonzalez MD at [facility] MAIN OR ??? PRO LAMINEC/FACETECT/FORAMIN, LUMBAR 1 SEG N/A 07/11/2021 LAMINECTOMY, FACETECTOMY & FORAMINOTOMY,LUMBAR, ONE LEVEL (WRVU 15.37) performed by Rios Gonzalez MD at [facility] MAIN OR ??? PRO LAP, CHOLECYSTECTOMY/GRAPH 11/04/2012 LAPAROSCOPIC CHOLECYSTECTOMY WITH CHOLANGIOGRAM performed by Abel Carlton MD at [facility] MAIN OR ??? PRO LUMBAR SPINE FUSN, POST TECH Bilateral 07/11/2021 ARTHRODESIS, LUMBAR SPINE, SINGLE LEVEL (WRVU 23.53) performed by Rios Gonzalez MD at [facility] MAIN OR ??? PRO POSTERIOR SEGMENTAL INSTRUMENTATION 3-6 VRT SEG Bilateral 07/11/2021 POST SPINAL INSTRUMENTATION, 3-6 VERTEBRA, NON SEGMENTAL (WRVU 12.56) performed by Rios Gonzalez MD at [facility] MAIN OR ??? PRO SPINE FUSN, POST TECH, EA ADDNL SGMT Bilateral 07/11/2021 ARTHRODESIS, POSTERIOR VERTEBRAL EA.ADD. SEGMENT (WRVU 6.43) performed by Rios Gonzalez MD at [facility] MAIN OR ??? PRO UPPER GI ENDOSCOPY, BIOPSY N/A 10/26/2015 UPPER GASTROINTESTINAL ENDOSCOPY,WITH BIOPSY SINGLE OR MULTIPLE performed by Apolinar Sepulveda MDat [facility] ENDOSCOPY ??? PRO UPPER GI ENDOSCOPY, DIAGNOSTIC N/A 10/26/2015 EGD, UPPER GI ENDOSCOPY performed by Apolinar Sepulveda MD at [facility] ENDOSCOPY ??? PRO UPPER GI ENDOSCOPY, DIAGNOSTIC N/A 10/02/2016 EGD, UPPER GI ENDOSCOPY performed by Justin Starkey MD at [facility] ENDOSCOPY ??? PRO UPPER GI ENDOSCOPY, W/DIR SUBMUC INJ 11/05/2017 EGD, W DIRECTED SUBMUCOSAL INJECTION(S) performed by Osmany Keller MD at [facility] ENDOSCOPY Social History: Patient lives w/ her who has the next week off. Home Setup: 10 ARELI w/ bilateral rails, once in the home is one level. Bathroom: tub shower, low toilet. Pt typically sleeps in a flat bed; however, also has a recliner. DME: 4WW?, shower chair? Baseline ADL/Mobility: Pt independent ADLs, mobility, does not use AD for mobility. Pt reports using O2 when sleeping at home. Precautions/Special Considerations: AAT, fall, Minimize bending, lifting > 5lbs, twisting Subjective: My will help me with whatever I need him to do. Objective: Seen today for occupational therapy: Cognitive Status/Behavior: ?? Behavior / Mood: alert and cooperative ?? Alert and oriented to: person, place, time and situation ?? Follows commands: 100% of the time ?? Attention: WFL ?? Safety awareness: WFL, fully aware of deficits and good safety precautions Activities of Daily Living: Self-feeding: Independent w/ set up Grooming: Independent w/ set up Dressing: already wearing pants at start of session. Able to dress UB w/o issue Bathing: Pt plans to obtain shower chair for home from [employer] and work with home OT on showering Toileting: Supervision Functional Mobility: Supine to sit: At EOB at start of session Sit to stand: CGA w/ FWW d Ambulation: supervision with FWW Stand to sit: supervision with FWW Balance: Sitting balance: good Standing balance: good w/ fWW Vitals: Pt on 2L O2 SpO2 RA 91-93% Heart Rate 70s-80s Pain: no pain reported Skin: dressing c/d/i Education: patient have been educated on Role of occupational therapy/rehabilitation, Transfers, Assistive device/technique, Adaptive equipment training, ADL, Positioning, Safety, Precautions/Protocol, Functional Mobility, Activity pacing/Energy conservation, Home Management, Balance, Recommendations and Discharge planning and verbalizes, demonstrates and needs reinforcement for full understanding. Patient status, treatment, and mobility recommendations discussed with nursing. Assessment: Pt able to able to participate with self care and functional mobiltiy with FWW. Anticipate pt will be able to d/c home w/ her S.O. assistance once medically appropriate. Pt would benefit from further inpatient OT interventions to address performance deficits and maximize participation and independence with occupations of daily living. Equipment needs at discharge: TBD: pt checking on walker, shower chair Anticipated Discharge Disposition (OT): home with supervision,home with home health Other Recommendations: ?? Utilize upright chair position using bed features or transfer to recliner chair as appropriate with SBA-CGA w/ FWW, ambulate as tolerated ?? Encourage participation in ADL's by providing set up A on tray table and physical assist only asneeded Other Recommendations: No other consults recommended at this time Goals: To be achieved by 07/26/21. Pt will verbalize safe plan for bathing given reported home set up and supports. Pt will don clothing independently w/ set up and AE/AD as needed. Pt will perform functional mobility a house hold distance for ADL/IADL task independently. Pt will independently demonstrate recommended hand placement/techniue during sit<>stand transitions w/ use of FWW. Pt will perform all aspects of toileting independently w/ AE/AD as needed. Plan: OT: Therapy Frequency (OT): 1-3 more times Planned OT interventions: Role of occupational therapy/rehabilitation, Transfers, Assistive device/technique, Adaptive equipment training, ADL, Positioning, Safety, Precautions/Protocol, Functional Mobility, Activity pacing/Energy conservation, Home Management, Balance, Recommendations and Discharge planning. Pager: [phone] JUSTIN ESPINO 07/13/2021 Occupational Therapy Rehabilitation Department * Monica Rivera RN - 07/13/2021 12:51 PM EST Phone call to [facility] re patient's home oxygen set up. Spoke to Jaclyn Nassar [phone] clarified that patient has portable oxygen concentrator at home and it has battery back up. Update to patient. Phone call from Mitch with [facility] informing that patient's front wheel walker will not be covered by medicare since patient purchased 4 wheel walker less than 5 years ago.Update to patient andspouse; spouse informed that he opts to purchase FWW at [facility], informed that patient will need FWW for anticipated discharge tomorrow. * Malgorzata Fish, PT - 07/13/2021 10:55 AM EST Physical Therapy Note Treatment Number PT: 2 Patient profile: Pt is a 60 y/o female who is s/p right L4-L5 hemilaminectomy with revision right transpedicular diskectomy, L4-S1 posterolateral instrumented fusion with right iliac crest bone graft. Interval History: drain removed Social History: Home set-up: lives in a mobile home with her . works during the day, pt does not work. Bathroom Set-up: tub/shower Stairs: 10 steps to enter with bilateral railings (although too wide to use both at the same time) Baseline Mobility: Independent Equipment at home: rollator Fall history: none Pt wears supplemental O2 at night only. Has 2 cats, enjoys doing crafts, gardening. Precautions/Special Considerations: Fall risk, spine precautions Lines: none Mobility and Positioning Recommendations: ?? Pt. Can ambulate with FWW and SBA. Recommend ambulating in hallway 3x/day ?? Please encourage up to chair for meal times as able. Subjective: I feel good about going home Objective: Patient seen for physical therapy and demonstrated the following: Pain: Number Location At rest 710 Lower back Vital Signs: At Rest With Activity SpO2 (2L) 94% 90-91% ?? Pt seated at EOB on therapist arrival ?? SBA sit>stand from bed with FWW ?? Pt ambulated ~60ft with SBA and FWW and took a seated rest break ?? Performed stair negotiation on practice stairs (3 steps x 3 reps) using bilateral rails. CGA provided initially, progressed to SBA. Educated pt on leading with LLE to ascend and RLE to descend. ?? Ambulated ~60ft back to room with SBA and FWW ?? Pt left Sitting EOB with bed alarm activated, call thomas within reach following visit. Education: Reiterated spinal precautions (pt able to list precautions independently), stair negotiation strategies, pacing, use of assistive device Assessment: Poppy Mclaughlin was seen today for physical therapy treatment session for continuation of POC. She is mobilizing well, able to negotiate 9 steps with SBA-CGA. can assist as neededat home. Pt will benefit from ongoing therapeutic interventions to achieve therapy goals. Discharge Recommendations: Based on the current findings, Anticipated Discharge Disposition (PT): home with home health when medically ready for hospital discharge. Consult Recommendations: No other consults recommended at this time. Equipment needs: Anticipated Equipment Needs at Discharge (PT): walker, front wheeled Goals: To be achieved by 07/26/21: ?? 1. Pt. to demonstrate knowledge of safety limitations and precautions and will appropriately request assistance for functional activities and to mobilize. 2. Pt. to perform bed mobility with modified independence. 3. Pt. to perform sit<>stand transfers with modified independence using the LRAD. 4. Pt. to ambulate 150 feet with modified independence using a the LRAD. 5. Pt. to ambulate up/down 10 step/stairs using one rail with supervision. Plan: Therapy Frequency (PT): 1-3 more times for as outlined in initial evaluation. Patient agrees with plan as stated. Time IN / OUT: 0773-2368 Total Minutes, Physical Therapy: 30 Billing Code: 1 gait training, 1 therapeutic activity Malgorzata Fish PT Pager: [phone] Physical Therapy Inpatient Rehabilitation Department * Rios Gonzalez MD - 07/13/2021 6:09 AM EST ORTHOPAEDIC SURGERY INPATIENT PROGRESS NOTE Patient Name: Poppy Mclaughlin Age: 60 y.o. Surgery/Issue: Right L4-L5 hemilaminectomy with revision right transpedicular diskectomy, L4-S1 posterolateral instrumented fusion with right iliac crest bone graft Attending: Dr. Gonzalez Date of surgery: 07/11/2021 SUBJECTIVE / INTERVAL HISTORY: Afebrile, VSS on 3L NC. Pain well controlled. Patient denies new numbness/weakness, chest pain, shortness of breath, nausea, vomiting. Did not clear PT yesterday, but anticipating clearance to home. Drain remains to bulb suction with 25cc output overnight. Hernadez removed yesterday. Pre-op Symptoms: Back pain that radiates to her right buttock, anterolateral thigh, anteromedial leg; worse with prolonged sitting or standing, activities. Pre-op symptoms currently present: Denies leg pain since surgery. Improvement in sensation in her thigh as well as foot. Less tingling in her leg. FOCUSED REVIEW OF SYSTEMS: as above. Active Hospital Problems Diagnosis ??? s/p Right L4-5 hemilaminectomy and L4-S1 instrumented fusion on 07/11/21 (Dr. Gonzalez) Resolved Hospital Problems No resolved problems to display. Active Non-Hospital Problems Diagnosis ??? Spondylolisthesis ??? Influenza due to [...] Multiple nodules of lung ??? Abdominal distention MEDICATIONS: ??? gelatin adsorbable 100 (Gelfoam) sponge ??? thrombin (Bovine) (Thrombinar) kit ??? vancomycin (Vancocin) injection ??? BUpivacaine (pf) (Marcaine) (2.5 mg/mL) 0.25% injection ??? albuteroL (Proventil) nebulizer solution 2.5 mg ??? ascorbic acid (Vitamin C) (Vitamin C) tablet 500 mg ??? benzonatate (Tessalon) capsule 100 mg ??? buPROPion SR (Wellbutrin SR) tablet 200 mg ??? DULoxetine DR (Cymbalta) capsule 30 mg ??? lisinopriL (Zestril) tablet 10 mg ??? montelukast (Singulair) tablet 10 mg ??? pregabalin (Lyrica) capsule 150 mg ??? rosuvastatin (Crestor) tablet 10 mg ??? traZODone (Desyrel) tablet 50 mg ??? sodium chloride 0.9 % (flush) (BD PosiFlush Normal Saline 0.9) flush 5 mL ??? sodium chloride 0.9 % (flush) (BD PosiFlush Normal Saline 0.9) flush 5-20 mL ??? polyethylene glycoL (Miralax) packet 17 g ??? senna-docusate (Pericolace) 8.6-50 mg per tablet 2 tablet ??? ondansetron (pf) (Zofran) (2 mg/mL) injection 4 mg ??? lactated ringers infusion ??? oxyCODONE (Roxicodone) tablet 5 mg OR oxyCODONE (Roxicodone) tablet 10 mg OR oxyCODONE (Roxicodone) tablet 15 mg ??? acetaminophen (Tylenol) tablet 1,000 mg ??? multivitamin with minerals (Thera M) tablet 1 tablet ??? lactated Ringers 75 mL/hr (07/12/212234) OBJECTIVE: Temp: [36.6 ??C (97.9 ??F)-37.6 ??C (99.7 ??F)] Heart Rate: [78-90] Resp: [16-18] BP: (90-147)/(55-85) SpO2: [78 %-93 %] Heart Rate from SpO2: [77 bpm-90 bpm] Intake/Output Summary (Last 24 hours) at 07/13/2021 06 Last data filed at 07/13/2021 0603 Gross per 24 hour Intake 2100 ml Output 3850 ml Net -1750 ml Body mass index is 36.49 kg/m??. Drain output: 25cc overnight Exam: General: NAD, awake/alert, responds to questions CV: RRR assessed peripherally Resp: Breathing comfortably on 3L NC Back: Dressing c/d/i, no hematoma. Drain to bulb suction. Motor: Segment Muscle Action R L L2 Iliopsoas Hip flexion 5 5 L3 Quadriceps Knee extension 5 5 L4,5 Hamstring Knee Flexion 5 5 L4 Tibialis anterior Dorsiflexion 4+ 5 L5 Extensor hallucis Great toe extension 4+ 5 S1 Gastrocnemius, FHL Plantar flexion 5 5 Sensory: Sensation (light touch) (0=absent, 1=impaired, 2=normal) Segment Location Right Left L1 upper inner thigh 2 2 L2 mid-ant thigh 2* 2 L3 med femoral condyle 2 2 L4 Anteromedial leg 1 2 L5 dorsum foot, 3rd MT 2* 2 S1 lat heal 2 2 S2 Popliteal fossa 2 2 * Some residual tingling in these distributions, but sensation improved to nearly normal by patientreport. Lab Results Component Value Date NA 140 07/12/2021 K 4.8 07/12/2021 CL 105 07/12/2021 CO2 25 07/12/2021 BUN 17 07/12/2021 CREATININE 1.12 07/12/2021 GLUCOSE 150 07/12/2021 GLUCFASTING 126 (H) 11/16/2018 CALCIUM 8.6 07/12/2021 Lab Results Component Value Date WBC 13.9 (H) 07/12/2021 HGB 10.2 (L) 07/12/2021 HCT 32.2 (L) 07/12/2021 MCV 94.2 07/12/2021 PLATELET 168 07/12/2021 Lab Results Component Value Date INR 1.0 07/11/2021 IMAGING: Xray lumbar spine demonstrates interval placement of posterior instrumentation and pedicle screws from L4-S1. No obvious acute post operative complications. ASSESSMENT / PLAN: Poppy Mclaughlin is a 60 y.o. female 2 Days Post-Op s/p right L4-L5 hemilaminectomy with revision right transpedicular diskectomy, L4-S1 posterolateral instrumented fusion with right iliac crest bone graft. Progressing well post operatively. Pain well controlled. Hernadez removed. Hgb drop to 10.2 from 12.6 on POD1 consistent with acute post operative blood loss anemia. Drain with 25cc overnight and removed on POD2. Discharge pending repeat evaluation by PT/OT. Activity: Activity as tolerated, avoiding b/t/l >5 lb Closure: Sutures (remove 21 days) Dressing: Mepilex x 7 days Drain: 1 drain, 10 holes, removed on 07/13/21 Anticoagulation: Hold x 72h Antibiotics: Periop Consults: PT/OT Dispo:Pending PT/OT Follow-up: 08/10/21 Demetris Blakely MD Orthopaedic Surgery PGY4 07/13/2021 Future Appointments Date Time Provider Department Center 08/10/2021 3:[address] [facility] DX ROOM [address] [facility] Rad 08/10/2021 3:40 PM Rios Gonzalez MD [facility] Pain Sp [facility] Spine Attending I have seen and examined the patient and agree with the resident's findings and plan. She reports expected surgical site pain, no LE pain. Mobilized some with PT yest. Neuro exam as above. Will cont to work on pain control and mobilization, d/c home when cleared by PT. * Monica Rivera RN - 07/12/2021 4:50 PM EST The patient has been provided a list of Home Health Agencies/DME vendors which serve their preferred geographic area. A letter describing our affiliations was reviewed with them and they were educated about their right to choose where referrals are placed. Patient requests referral to [facility] [employer]. PHONE: [phone] FAX: [phone] Ortho Care Located @ [facility] Center [place], [place] Equipment needed: Front wheel walker Expected date of discharge: 07/13/2021 Referral routed to the Neck Band Operator for matching with agency/vendor and to provide any required information. * Malgorzata Fish, PT - 07/12/2021 10:10 AM EST Physical Therapy Evaluation Patient profile: Poppy Mclaughlin is a 60 y.o. R handed female who is s/p L4-5 hemilaminectomy and L4-S1 fusion with R iliac bone graft on 07/11/21. Patient with the following active problems: Past Medical History: Diagnosis Date ??? Allergy [...] SPINE SURGERY ONLY; STRUCTUAL performed by Rios Gonzalez MD at [facility] MAIN OR ??? PRO ANTERIOR INSTRUMENTATION 2-3 VERTEBRAL SEGMENTS 09/08/2013 @ANT. SPINAL INSTRUMENTATION, 2-3 VERTEBRA, SEGMENTED performed by Rios Gonzalez MD at [facility] ??? PRO ARTHRD ANT INTERDY CERVCL BELW C2 EA ADDL NTRSPC 09/08/2013 @ARTHRODESIS ANT INTERBDY CERVCL BELOW C2 EA ADDL INTRSPACE performed by Rios Gonzalez MD at [facility] OR ??? PRO ARTHRODESIS, ANT INTERBODY,DECOMPRESSION; CERVICAL BELOW C2 09/08/2013 ARTHRODESIS, ANT INTERBODY,DECOMPRESSION; CERVICAL BELOW C2 performed by Rios Gonzalez MD at [facility] MAIN OR ??? PRO AUTOGRAFT SPINE SURGERY MORSELIZED SEP INCISION Bilateral 07/11/2021 AUTOGRAFT FOR SPINE SURGERY ONLY; MORSELIZED (THROUGH SEPARATE SKIN OR FASCIAL INCISION) (WRVU 2.79) performed by Rios Gonzalez MD at [facility] MA[facility] OR ??? PRO DECOMPRESS SPINAL CORD, 1 SEG Right 08/31/2014 TRANSPEDICULAR LUMBAR DECOMPRESSION SPINAL CORD,EQUINA & NERVE ROOTS, ONE LVL. performed by Rios Gonzalez MD at [facility] OR ??? PRO DECOMPRESS SPINAL CORD, 1 SEG N/A 07/11/2021 TRANSPEDICULAR LUMBAR DECOMPRESSION SPINAL CORD,EQUINA & NERVE ROOTS, ONE LVL. (WRVU 21.86) performed by Rios Gonzalez MD at [facility] MA[facility] OR ??? PRO LAMINEC/FACETECT/FORAMIN, EACH ADDNL Bilateral 07/11/2021 ADD'L INTERSPACES CX., THORACIC, LUMBAR (WRVU 3.47) performed by Rios Gonzalez MD at [facility] MA[facility] OR ??? PRO LAMINEC/FACETECT/FORAMIN, LUMBAR 1 SEG N/A 07/11/2021 LAMINECTOMY, FACETECTOMY & FORAMINOTOMY,LUMBAR, ONE LEVEL (WRVU 15.37) performed by Rios Gonzalez MD at [facility] MA[facility] OR ??? PRO LAP, CHOLECYSTECTOMY/GRAPH 11/04/2012 LAPAROSCOPIC CHOLECYSTECTOMY WITH CHOLANGIOGRAM performed by Abel Carlton MD at [facility] OR ??? PRO LUMBAR SPINE FUSN, POST TECH Bilateral 07/11/2021 ARTHRODESIS, LUMBAR SPINE, SINGLE LEVEL (WRVU 23.53) performed by Rios Gonzalez MD at [facility] OR ??? PRO POSTERIOR SEGMENTAL INSTRUMENTATION 3-6 VRT SEG Bilateral 07/11/2021 POST SPINAL INSTRUMENTATION, 3-6 VERTEBRA, NON SEGMENTAL (WRVU 12.56) performed by Rios Gonzalez MD at [facility] MAIN OR ??? PRO SPINE FUSN, POST TECH, EA ADDNL SGMT Bilateral 07/11/2021 ARTHRODESIS, POSTERIOR VERTEBRAL EA.ADD. SEGMENT (WRVU 6.43) performed by Rios Gonzalez MD at [facility] MA[facility] OR ??? PRO UPPER GI ENDOSCOPY, BIOPSY N/A 10/26/2015 UPPER GASTROINTESTINAL ENDOSCOPY,WITH BIOPSY SINGLE OR MULTIPLE performed by Apolinar Sepulveda MDat [facility] ENDOSCOPY ??? PRO UPPER GI ENDOSCOPY, DIAGNOSTIC N/A 10/26/2015 EGD, UPPER GI ENDOSCOPY performed by Apolinar Sepulveda MD at [facility] ENDOSCOPY ??? PRO UPPER GI ENDOSCOPY, DIAGNOSTIC N/A 10/02/2016 EGD, UPPER GI ENDOSCOPY performed by Justin Starkey MD at [facility] ENDOSCOPY ??? PRO UPPER GI ENDOSCOPY, W/DIR SUBMUC INJ 11/05/2017 EGD, W DIRECTED SUBMUCOSAL INJECTION(S) performed by Osmany Keller MD at [facility] ENDOSCOPY Active Non-Hospital Problems Diagnosis ??? Spondylolisthesis ??? Influenza due to [...] Multiple nodules of lung ??? Abdominal distention Social History: Home set-up: lives in a mobile home with her . works during the day, pt does not work. Bathroom Set-up: tub/shower Stairs: 10 steps to enter with bilateral railings (although too wide to use both at the same time) Baseline Mobility: Independent Equipment at home: rollator Fall history: none Pt wears supplemental O2 at night only. Has 2 cats, enjoys doing crafts, gardening. Precautions/Special Considerations: Fall risk, spine precautions Lines: BAUDILIO drain, PIV Activity Orders: as tolerated Mobility and Positioning Recommendations: ?? Pt. to utilize FWW and 1 assist for ambulation and transfers with nursing. ?? Please encourage up to chair for meal times as able. ?? Pt encouraged to ambulate frequently with staff, getting into the bathroom for toileting and walking out in the [place] >/= 3 times daily as able. Subjective: ???It feels better than before?? Objective: Pt seen for evaluation today. Pain: Number Location At rest 7/10 Lower back Vital Signs: Pt weaned to room air, SpO2 reading was inconsistent, when pleth was good SpO2 was >90%. All other VSS. Educated pt on use of incentive spirometer, performed 5 reps to 500-750 mL. Pt with wet cough throughout session, states she is a former smoker and has a cough at baseline. Mental Status: alert, oriented to person, place, and time. Pt sleeping on therapist arrival, slow to arouse but more alert once up and moving Vision: WFL Skin: Spine incision c/d/i, BAUDILIO drain intact, PIV intact Musculoskeletal: ROM: WFL Strength: WFL Sensation: Pt reports RLE numbness has improved, light touch intact on exam Bed Mobility: Rolling to the left: CGA with verbal cues for log roll and hand placement Supine to Sit: CGA Sit to Supine: not assessed- left in chair at end of session Transfers: Sit to Stand: CGA with FWW Stand to Sit: CGA-SBA with FWW Bed to Chair: CGA with FWW Gait: Distance: 25ft x 2 (to bathroom and back to chair) Device used: FWW Level of assist: CGA Gait mechanics: Slightly antalgic, slow grace. No LOB noted Stairs: not assessed during evaluation Balance: Sitting Static: good Sitting Dynamic: good Standing Static: good with FWW Standing Dynamic / Gait: Good with FWW Education: patient has been educated on Bed mobility, Transfers, Assistive device/technique, Breathing exercises, Safety , Precautions/protocol, Equipment use, Gait , Activity pacing/Energy conservation, Role of therapy, Balance and Discharge planning and verbalizes understanding. Patient status, treatment, and mobility recommendations discussed with nursing. Assessment: Poppy Mclaughlin was seen today for physical therapy evaluation. Pt is mobilizing well post-op, would benefit from ambulating a few more times today with nursing. Plan to practice stairs prior to discharge. She states she has a rollator at home but needs to locate it. She may benefit from a FWW for increased stability pending progress. The pt would benefit from skilled therapy services while in the hospital to maximize functional abilities. Discharge Recommendations: Based on the current findings, Anticipated Discharge Disposition (PT): home with home health when medically ready for hospital discharge. Consult Recommendations: No other consults recommended at this time. Equipment needs: Anticipated Equipment Needs at Discharge (PT): to be determined (may need FWW) Goals: To be achieved by 07/26/21: 1. Pt. to demonstrate knowledge of safety limitations and precautions and will appropriately request assistance for functional activities and to mobilize. 2. Pt. to perform bed mobility with modified independence. 3. Pt. to perform sit<>stand transfers with modified independence using the LRAD. 4. Pt. to ambulate 150 feet with modified independence using a the LRAD. 5. Pt. to ambulate up/down 10 step/stairs using one rail with supervision. Plan: Therapy Frequency (PT): 1-3 more times for therapy including balance training, bed mobility training, gait training, patient/family education, stair training and transfer training. Patient/family understand and agree with plan as stated above. 2017 PT Evaluation Code Rationale: ?? Diagnosis & Pertinent Co-Morbidities, personal factors, and present illness affecting Plan of Care: (see above); Additional personal factors or co- morbidities that impact plan: ?? Total # of Factors: 0 1-2 3+ x ?? Examination of body system impairments, functional limitations and behaviors, and/or participation restrictions. Addressing 1-2 elements Addressing 3 + elements x Addressing 4 + elements ?? Clinical presentation: See assessment above. Stable/Uncomplicated Evolving/Fluctuating Symptoms Unstable/Unpredictable x ?? Clinical decision making of moderate complexity based on pt's functional performance as outlinedin this evaluation. Time IN / OUT: 8395-4959 Total Minutes, Physical Therapy: 43 Malgorzata Fish PT Pager: [phone] Physical Therapy Inpatient Rehabilitation Department * Siria Samuel Aileen, OT - 07/12/2021 9:30 AM EST Occupational Therapy Evaluation Patient profile: Poppy Mclaughlin is a 60 y.o. R handed female who is s/p L4-5 hemilaminectomy and L4-S1 fusion with R iliac bone graft on 07/11/21. Past Medical History: Diagnosis Date ??? Allergy liquid abuterol, egg sensitivity ??? Breathing problem im seeing dr zapata ??? Chronic pain ??? Diabetes mellitus 03/19/2016 ??? Digestive problems - ?? gerd, nutcracker syndrome abdominal gistention dr holder ??? ENT disease 3- rhinitus dr alex ??? Headache(784.0) ? Hypertensive disease they have said my bp is running high ??? Skin disorder ?? acne Past Surgical History: Procedure Laterality Date ??? PRG UNLISTED DIAGNOSTIC GASTROENTEROLOGY PROCEDURE [address] jimenez ??? PRO ALLOGRAFT FOR SPINE SURGERY ONLY STRUCTURAL 09/08/2013 ALLOGRAFT FOR SPINE SURGERY ONLY; STRUCTUAL performed by Rios Gonzalez MD at [facility] MA[facility] OR ??? PRO ANTERIOR INSTRUMENTATION 2-3 VERTEBRAL SEGMENTS 09/08/2013 @ANT. SPINAL INSTRUMENTATION, 2-3 VERTEBRA, SEGMENTED performed by Rios Gonzalez MD at [facility] ??? PRO ARTHRD ANT INTERDY CERVCL BELW C2 EA ADDL NTRSPC 09/08/2013 @ARTHRODESIS ANT INTERBDY CERVCL BELOW C2 EA ADDL INTRSPACE performed by Rios Gonzalez MD at [facility] OR ??? PRO ARTHRODESIS, ANT INTERBODY,DECOMPRESSION; CERVICAL BELOW C2 09/08/2013 ARTHRODESIS, ANT INTERBODY,DECOMPRESSION; CERVICAL BELOW C2 performed by Rios Gonzalez MD at [facility] OR ??? PRO AUTOGRAFT SPINE SURGERY MORSELIZED SEP INCISION Bilateral 07/11/2021 AUTOGRAFT FOR SPINE SURGERY ONLY; MORSELIZED (THROUGH SEPARATE SKIN OR FASCIAL INCISION) (WRVU 2.79) performed by Rios Gonzalez MD at [facility] OR ??? PRO DECOMPRESS SPINAL CORD, 1 SEG Right 08/31/2014 TRANSPEDICULAR LUMBAR DECOMPRESSION SPINAL CORD,EQUINA & NERVE ROOTS, ONE LVL. performed by Rios Gonzalez MD at [facility] OR ??? PRO DECOMPRESS SPINAL CORD, 1 SEG N/A 07/11/2021 TRANSPEDICULAR LUMBAR DECOMPRESSION SPINAL CORD,EQUINA & NERVE ROOTS, ONE LVL. (WRVU 21.86) performed by Rios Gonzalez MD at [facility] OR ??? PRO LAMINEC/FACETECT/FORAMIN, EACH ADDNL Bilateral 07/11/2021 ADD'L INTERSPACES CX., THORACIC, LUMBAR (WRVU 3.47) performed by Rios Gonzalez MD at [facility] MA[facility] OR ??? PRO LAMINEC/FACETECT/FORAMIN, LUMBAR 1 SEG N/A 07/11/2021 LAMINECTOMY, FACETECTOMY & FORAMINOTOMY,LUMBAR, ONE LEVEL (WRVU 15.37) performed by Rios Gonzalez MD at [facility] MA[facility] OR ??? PRO LAP, CHOLECYSTECTOMY/GRAPH 11/04/2012 LAPAROSCOPIC CHOLECYSTECTOMY WITH CHOLANGIOGRAM performed by Abel Carlton MD at [facility] MA[facility] OR ??? PRO LUMBAR SPINE FUSN, POST TECH Bilateral 07/11/2021 ARTHRODESIS, LUMBAR SPINE, SINGLE LEVEL (WRVU 23.53) performed by Rios Gonzalez MD at [facility] MA[facility] OR ??? PRO POSTERIOR SEGMENTAL INSTRUMENTATION 3-6 VRT SEG Bilateral 07/11/2021 POST SPINAL INSTRUMENTATION, 3-6 VERTEBRA, NON SEGMENTAL (WRVU 12.56) performed by Rios Gonzalez MD at [facility] OR ??? PRO SPINE FUSN, POST TECH, EA ADDNL SGMT Bilateral 07/11/2021 ARTHRODESIS, POSTERIOR VERTEBRAL EA.ADD. SEGMENT (WRVU 6.43) performed by Rios Gonzalez MD at [facility] MA[facility] OR ??? PRO UPPER GI ENDOSCOPY, BIOPSY N/A 10/26/2015 UPPER GASTROINTESTINAL ENDOSCOPY,WITH BIOPSY SINGLE OR MULTIPLE performed by Apolinar Sepulveda MDat [facility] ??? PRO UPPER GI ENDOSCOPY, DIAGNOSTIC N/A 10/26/2015 EGD, UPPER GI ENDOSCOPY performed by Apolinar Sepulveda MD at [facility] ??? PRO UPPER GI ENDOSCOPY, DIAGNOSTIC N/A 10/02/2016 EGD, UPPER GI ENDOSCOPY performed by Justin Starkey MD at [facility] END[facility] ??? PRO UPPER GI ENDOSCOPY, W/DIR SUBMUC INJ 11/05/2017 EGD, W DIRECTED SUBMUCOSAL INJECTION(S) performed by Osmany Keller MD at [facility] ENDOS[facility] Social History: Patient lives w/ her who has the next week off. Home Setup: 10 ARELI w/ bilateral rails, once in the home is one level. Bathroom: tub shower, low toilet. Pt typically sleeps in a flat bed; however, also has a recliner. DME: 4WW?, shower chair? Baseline ADL/Mobility: Pt independent ADLs, mobility, does not use AD for mobility. Pt reports using O2 when sleeping at home. Precautions/Special Considerations: AAT, BAUDILIO drain, fall, Minimize bending, lifting > 5lbs, twisting Subjective: I can feel more than before. Objective: Seen today for OT evaluation. Cognitive Status/Behavior: ?? Behavior / Mood: alert and cooperative ?? Alert and oriented to: person, place, time and situation ?? Follows commands: 100% of the time ?? Attention: WFL ?? Safety awareness: WFL, fully aware of deficits and good safety precautions Vision & Perception: ?? WNL/WFL Communication: WFL Range of motion, strength, coordination: Hand dominance: right Bilateral UEs are within functional limitations LE limitations: grossly WFL for ADL Sensation: decreased sensation to RLE: able to localize touch, subjectively improved compared to baseline Activities of Daily Living: Self-feeding: Independent w/ set up Grooming: Pt stood at sink level: used mouth wash, washed face; brushed hair sitting EOB. Dressing: Pt donned pants EOB, CGA during sit<>stand transition. Pt issued educated on use ofsock aid, demonstrated the ability to don. Bathing: Pt reports tub shower set up, with possible shower chair at home will review in future sessions to ensure safe plan for bathing. Pt issued and educated on use of LH sponge, pt verbalized understanding. Toileting: Transfer: CGA w/ FWW Hygiene: independent Functional Mobility: Supine to sit: Kristel w/ HOB slightly elevated, verbal cues for log roll Sit to stand: CGA w/ FWW , verbal cues/demo for hand placement during sit<>stand Ambulation: SBA-CGA w/ FWW ~ 30' B side of room<>bathroom Stand to sit: SBA w/ FWW, verbal cues/demo for hand placement during sit<>stand Sit to supine: Not performed, pt left w/ all needs met seated in chair Balance: Sitting balance: good Standing balance: good w/ fWW Vitals: Pt initially on 4L O2 due to desaturation at night (pt wears O2 at night at baseline) SpO2 RA 92-96% Heart Rate 67-104 Pain: 02/18 incisional Skin: dressing c/d/i Education: patient have been educated on Role of occupational therapy/rehabilitation, Transfers, Assistive device/technique, Adaptive equipment training, ADL, Positioning, Safety, Precautions/Protocol, Functional Mobility, Activity pacing/Energy conservation, Home Management, Balance, Recommendations and Discharge planning and verbalizes, demonstrates and needs reinforcement for full understanding. Patient status, treatment, and mobility recommendations discussed with nursing. Assessment: Pt has been seen for occupational therapy evaluation. Poppy Mclaughlin presents with thefollowing performance skill deficits and client factors: increased pain, decreased activity tolerance, decreased flexibility/ROM, decreased strength, decreased sitting/standing balance, precautions/bracing and compromised mobility status. These performance deficits have led to activity limitations and participation restrictions in the following areas of occupation: dressing, bathing, grooming, toileting, transfers/mobility, rest/sleep, home management, leisure, driving and community mobility. Pt AO x 4, initially lethargic; however, once transfer to EOB pt WNL. Pt demonstrated the ability to don pants, short distance mobility, toilet transfer, and standing ADL task w/ CGA, use of FWW, and verbal cues for modified techniques/safety. Pt limited in mobility distance and participation in ADL tasks due to increased pain and fatigue; however, anticipate pt will progress and d/c home w/ her S.O. assistance once medically appropriate. Pt would benefit from further inpatient OT interventions to address performance deficits and maximize participation and independence with occupations of dailyliving. Equipment needs at discharge: TBD: pt checking on walker, shower chair Anticipated Discharge Disposition (OT): home with supervision Other Recommendations: ?? Utilize upright chair position using bed features or transfer to recliner chair as appropriate with SBA-CGA w/ FWW, ambulate as tolerated ?? Encourage participation in ADL's by providing set up A on tray table and physical assist only asneeded Other Recommendations: No other consults recommended at this time Goals: To be achieved by 07/26/21. Pt will verbalize safe plan for bathing given reported home set up and supports. Pt will don clothing independently w/ set up and AE/AD as needed. Pt will perform functional mobility a house hold distance for ADL/IADL task independently. Pt will independently demonstrate recommended hand placement/techniue during sit<>stand transitions w/ use of FWW. Pt will perform all aspects of toileting independently w/ AE/AD as needed. Plan: OT: Therapy Frequency (OT): 1-3 more times Planned OT interventions: Role of occupational therapy/rehabilitation, Transfers, Assistive device/technique, Adaptive equipment training, ADL, Positioning, Safety, Precautions/Protocol, Functional Mobility, Activity pacing/Energy conservation, Home Management, Balance, Recommendations and Discharge planning. Total Minutes, Occupational Therapy: 43 (eval + sc) 2017 OT Evaluation Code Rationale: ?? Diagnosis & Pertinent Co-Morbidities affecting Plan of Care: see PMHx ?? Occupational Profile & Client History: Brief Expanded Extensive x ?? Assessment of Occupational Performance: 1-3 performance deficits 3-5 performance deficits x 5 + performance deficits ?? Clinical Decision Making: Low Moderate High x Clinical decision making of moderate complexity using standardized patient assessment instrument and measurable assessment of functional outcome. Pager: [phone] Samuel Beverly OT 07/12/2021 Occupational Therapy Rehabilitation Department * Shobha Padilla RN - 07/12/2021 6:58 AM EST OUTCOME EVALUATION NOTE: OUTCOME SUMMARY: Received patient from PACU at start of shift. Pt w/o c/o n/t to BLE on neuro vasc checks. BAUDILIO drain monitored and emptied through out the night. VSS for the shift. Patient resting through out the night. Scheduled Tylenol given per MAR as well as one time oxycodone early in the AM. Up to the chair early in the morning for about 2 hours and returned before shift change. Dressing to lower back is CDI. 4L NC continued for now, but patient only uses 3L NC at night time. Will give report to oncoming shift. PLAN MOVING FORWARD: Pain Control (scheduled Tylenol, prn oxycodone) Mobilize OOB OT/PT Evaluation BAUDILIO drain maintenance Discharge planning INDIVIDUALIZED FALL PREVENTION: Fall Score: 45 Baseline mobility: Independent Assistance: SBA -assist with walker Supervision: Eyes-on for all transfers and ambulation Arms-Reach for all transfers and ambulation Surveillance: Bed Alarm/Chair Alarm Purposeful Rounding Team Care Bedside Nurse Knowledge Exchange CPG OUTCOME EVALUATION: * Rios Gonzalez MD - 07/12/2021 6:10 AM EST ORTHOPAEDIC SURGERY INPATIENT PROGRESS NOTE Patient Name: Poppy Mclaughlin Age: 60 y.o. Surgery/Issue: Right L4-L5 hemilaminectomy with revision right transpedicular diskectomy, L4-S1 posterolateral instrumented fusion with right iliac crest bone graft Attending: Dr. Gonzalez Date of surgery: 07/11/2021 SUBJECTIVE / INTERVAL HISTORY: Afebrile, VSS on 3L NC. Pain well controlled. Patient denies new numbness/weakness, chest pain, shortness of breath, nausea, vomiting. Reports she has already been OOB. Drain remains to bulb suction. Pre-op Symptoms: Back pain that radiates to her right buttock, anterolateral thigh, anteromedial leg; worse with prolonged sitting or standing, activities. Pre-op symptoms currently present: Denies leg pain since surgery. Improvement in sensation in her thigh as well as foot. Less tingling in her leg. FOCUSED REVIEW OF SYSTEMS: as above. Active Hospital Problems Diagnosis ??? s/p Right L4-5 hemilaminectomy and L4-S1 instrumented fusion on 07/11/21 (Dr. Gonzalez) Resolved Hospital Problems No resolved problems to display. Active Non-Hospital Problems Diagnosis ??? Spondylolisthesis ??? Influenza due to [...] Multiple nodules of lung ??? Abdominal distention MEDICATIONS: ??? gelatin adsorbable 100 (Gelfoam) sponge ??? thrombin (Bovine) (Thrombinar) kit ??? vancomycin (Vancocin) injection ??? BUpivacaine (pf) (Marcaine) (2.5 mg/mL) 0.25% injection ??? albuteroL (Proventil) nebulizer solution 2.5 mg ??? ascorbic acid (Vitamin C) (Vitamin C) tablet 500 mg ??? benzonatate (Tessalon) capsule 100 mg ??? buPROPion SR (Wellbutrin SR) tablet 200 mg ??? DULoxetine DR (Cymbalta) capsule 30 mg ??? lisinopriL (Zestril) tablet 10 mg ??? montelukast (Singulair) tablet 10 mg ??? pregabalin (Lyrica) capsule 150 mg ??? rosuvastatin (Crestor) tablet 10 mg ??? traZODone (Desyrel) tablet 50 mg ??? sodium chloride 0.9 % (flush) (BD PosiFlush Normal Saline 0.9) flush 5 mL ??? sodium chloride 0.9 % (flush) (BD PosiFlush Normal Saline 0.9) flush 5-20 mL ??? polyethylene glycoL (Miralax) packet 17 g ??? senna-docusate (Pericolace) 8.6-50 mg per tablet 2 tablet ??? ondansetron (pf) (Zofran) (2 mg/mL) injection 4 mg ??? lactated ringers infusion ??? ceFAZolin (Ancef) 1 g in dextrose 5% 50 mL infusion ??? oxyCODONE (Roxicodone) tablet 5 mg OR oxyCODONE (Roxicodone) tablet 10 mg OR oxyCODONE (Roxicodone) tablet 15 mg ??? acetaminophen (Tylenol) tablet 1,000 mg ??? multivitamin with minerals (Thera M) tablet 1 tablet ??? lactated Ringers 75 mL/hr (07/12/21 0556) OBJECTIVE: Temp: [36.2 ??C (97.2 ??F)-37 ??C (98.6 ??F)] Heart Rate: [72-86] Resp: [10-18] BP: (93-139)/(65-85) SpO2: [91 %-99 %] Heart Rate from SpO2: [70 bpm-86 bpm] Intake/Output Summary (Last 24 hours) at 07/12/2021 0630 Last data filed at 07/12/2021 0612 Gross per 24 hour Intake 2414.72 ml Output 2830 ml Net -415.28 ml Body mass index is 35.7 kg/m??. Drain output: 265cc overnight with decreasing rate since midnight. Exam: General: NAD, awake/alert, responds to questions CV: RRR assessed peripherally Resp: Breathing comfortably on 3L NC Back: Dressing c/d/i, no hematoma. Drain to bulb suction. Motor: Segment Muscle Action R L L2 Iliopsoas Hip flexion 5 5 L3 Quadriceps Knee extension 5 5 L4,5 Hamstring Knee Flexion 5 5 L4 Tibialis anterior Dorsiflexion 4+ 5 L5 Extensor hallucis Great toe extension 4+ 5 S1 Gastrocnemius, FHL Plantar flexion 5 5 Sensory: Sensation (light touch) (0=absent, 1=impaired, 2=normal) Segment Location Right Left L1 upper inner thigh 2 2 L2 mid-ant thigh 2* 2 L3 med femoral condyle 2 2 L4 Anteromedial leg 1 2 L5 dorsum foot, 3rd MT 2* 2 S1 lat heal 2 2 S2 Popliteal fossa 2 2 * Some residual tingling in these distributions, but sensation improved to nearly normal by patientreport. Lab Results Component Value Date NA 140 07/12/2021 K 4.8 07/12/2021 CL 105 07/12/2021 CO2 25 07/12/2021 BUN 17 07/12/2021 CREATININE 1.12 07/12/2021 GLUCOSE 150 07/12/2021 GLUCFASTING 126 (H) 11/16/2018 CALCIUM 8.6 07/12/2021 Lab Results Component Value Date WBC 13.9 (H) 07/12/2021 HGB 10.2 (L) 07/12/2021 HCT 32.2 (L) 07/12/2021 MCV 94.2 07/12/2021 PLATELET 168 07/12/2021 Lab Results Component Value Date INR 1.0 07/11/2021 IMAGING: Xray lumbar spine demonstrates interval placement of posterior instrumentation and pedicle screws from L4-S1. No obvious acute post operative complications. ASSESSMENT / PLAN: Poppy Mclaughlin is a 60 y.o. female 1 Day Post-Op s/p right L4-L5 hemilaminectomy with revision right transpedicular diskectomy, L4-S1 posterolateral instrumented fusion with rightiliac crest bone graft. Progressing well post operatively. Pain well controlled. Plan for hernadez to be removed this morning at attempt at voiding. Hgb drop to 10.2 from 12.6 consistent with acute postoperative blood loss anemia. Drain with 265cc overnight, although rate decreasing since midnight. Will plan to monitor output and rate and keep in place for now. Discharge pending evaluation by PT/OT. Activity: Activity as tolerated, avoiding b/t/l >5 lb Closure: Sutures (remove 21 days) Dressing: Mepilex x 7 days Drain: 1 drain, 10 holes, removed <80cc per shift Anticoagulation: Hold x 72h Antibiotics: Periop Consults: PT/OT Dispo:Pending PT/OT Follow-up: 08/10/21 Demetris Blakely MD Orthopaedic Surgery PGY4 07/12/2021 Future Appointments Date Time Provider Department Center 08/10/2021 3:[address] [facility] DX ROOM [address] [facility] Rad 08/10/2021 3:40 PM Rios Gonzalez MD [facility] Pain Sp [facility] Spine Attending I have seen and examined the patient and agree with the resident's findings and plan. She reports expected surgical site pain, no LE pain. Neuro exam as above. X-rays show appropriate position of hardware. Will mobilize with PT today. * Beth Gentile MD - 07/11/2021 6:57 PM EST ORTHOPAEDIC SURGERY INPATIENT POST OP NOTE Patient Name: Poppy Mclaughlin Age: 60 y.o. Surgery/Issue: Right L4-L5 hemilaminectomy with revision right transpedicular diskectomy, L4-S1 posterolateral instrumented fusion with right iliac crest bone graft Attending: Dr. Gonzalez Date of surgery: 07/11/2021 SUBJECTIVE / INTERVAL HISTORY: Pain well controlled. Patient denies numbness/weakness, chest pain, shortness of breath, nausea, vomiting. Patient appears a little out of it, answering questions with eyes closed. Pre-op Symptoms: Back pain that radiates to her right buttock, anterolateral thigh, anteromedial leg; worse with prolonged sitting or standing, activities. Pre-op symptoms currently present: right sided weakness per patient FOCUSED REVIEW OF SYSTEMS: as above. Active Hospital Problems Diagnosis ??? s/p Right L4-5 hemilaminectomy and L4-S1 instrumented fusion on 07/11/21 (Dr. Gonzalez) Resolved Hospital Problems No resolved problems to display. Active Non-Hospital Problems Diagnosis ??? Spondylolisthesis ??? Influenza due to [...] Multiple nodules of lung ??? Abdominal distention MEDICATIONS: ??? tranexamic acid (Cyklokapron) (10 mg/mL) in sodium chloride 100 mL continuous infusion ??? gelatin adsorbable 100 (Gelfoam) sponge ??? thrombin (Bovine) (Thrombinar) kit ??? vancomycin (Vancocin) injection ??? BUpivacaine (pf) (Marcaine) (2.5 mg/mL) 0.25% injection ??? albuteroL (Proventil) nebulizer solution 2.5 mg ??? pregabalin (Lyrica) capsule 150 mg ??? sodium chloride 0.9 % (flush) (BD PosiFlush Normal Saline 0.9) flush 5 mL ??? sodium chloride 0.9 % (flush) (BD PosiFlush Normal Saline 0.9) flush 5-20 mL ??? lactated ringers infusion ??? ceFAZolin (Ancef) 1 g in dextrose 5% 50 mL infusion ??? oxyCODONE (Roxicodone) tablet 5 mg OR oxyCODONE (Roxicodone) tablet 10 mg OR oxyCODONE (Roxicodone) tablet 15 mg ??? acetaminophen (Tylenol) tablet 1,000 mg ??? tranexamic acid Stopped (07/11/21 1445) ??? lactated Ringers 75 mL/hr (07/11/21 1610) OBJECTIVE: Temp: [36.2 ??C (97.2 ??F)-36.9 ??C (98.4 ??F)] Heart Rate: [72-86] Resp: [10-18] BP: (93-139)/(65-85) SpO2: [91 %-99 %] Heart Rate from SpO2: [70 bpm-86 bpm] Intake/Output Summary (Last 24 hours) at 07/11/2021 1857 Last data filed at 07/11/2021 1800 Gross per 24 hour Intake 2414.72 ml Output 960 ml Net 1454.72 ml Body mass index is 35.7 kg/m??. Drain output: 250cc Exam: General: NAD, awake/alert, responds to questions CV: RRR assessed peripherally Resp: Breathing comfortably on 4L NC Back: Dressing c/d/i, no hematoma Motor: Segment Muscle Action R L L2 Iliopsoas Hip flexion 5 5 L3 Quadriceps Knee extension 5 5 L4,5 Hamstring Knee Flexion 5 5 L4 Tibialis anterior Dorsiflexion 4 5 L5 Extensor hallucis Great toe extension 4 5 S1 Gastrocnemius, FHL Plantar flexion 5 5 Sensory: Sensation (light touch) (0=absent, 1=impaired, 2=normal) Segment Location Right Left L1 upper inner thigh 1 2 L2 mid-ant thigh 1 2 L3 med femoral condyle 2 2 L4 medial mal 2 2 L5 dorsum foot, 3rd MT 1 2 S1 lat heal 2 2 S2 Popliteal fossa 2 2 Lab Results Component Value Date NA 141 07/11/2021 K 3.9 07/11/2021 CL 104 07/11/2021 CO2 26 07/11/2021 BUN 22 (H) 07/11/2021 CREATININE 1.26 (H) 07/11/2021 GLUCOSE 84 07/11/2021 GLUCFASTING 126 (H) 11/16/2018 CALCIUM 9.7 07/11/2021 Lab Results Component Value Date WBC 9.3 07/11/2021 HGB 12.6 07/11/2021 HCT 39.7 07/11/2021 MCV 93.2 07/11/2021 PLATELET 207 07/11/2021 Lab Results Component Value Date INR 1.0 07/11/2021 ASSESSMENT / PLAN: Poppy Mclaughlin is a 60 y.o. female Day of Surgery s/p right L4-L5 hemilaminectomy with revision right transpedicular diskectomy, L4-S1 posterolateral instrumented fusion with right iliac crest bone graft. Discharge pending evaluation by PT/OT on POD1. Activity: Activity as tolerated, avoiding b/t/l >5 lb Closure: Sutures (remove 21 days) Dressing: Mepilex x 7 days Drain: 1 drain, 10 holes, removed <80cc per shift Anticoagulation: Hold x 72h Antibiotics: Periop Consults: PT/OT Dispo:Pending PT/OT Follow-up: 08/10/21 Beth Gentile MD 07/11/2021 Future Appointments Date Time Provider Department Center 08/10/2021 3:[address] [facility] DX ROOM [address] [facility] Rad 08/10/2021 3:40 PM Rios Gonzalez MD [facility] Pain Sp [facility] * Mahnaz Grijalva RN - 07/11/2021 5:57 PM EST 1520: Arrived from OR in bed. Attached to monitors and alarms set appropriately for patient. Oral airway in place upon arrival. 1645: Pt able to move all extremities, states she has tingling in hands bilaterally, denies any numbness. 1711: Pt complaining of 7/10 back pain. Pt states this is tolerable for her. 1756: Pt states she feels comfortable. Report given to KAMLA Boykin on . Pt will go to [facility] on way to her room. documented in this encounter H&P Notes * Rios Gonzalez MD - 07/11/2021 9:30 AM EST 24-Hour Pre-Operative H&P Update Poppy Mclaughlin 1960 [id number] Patient seen in pre-op holding area today. There are no clinically significant changes to the patient's health since the original H&P. Patient denies any recent fevers or chills. Gen- well appearing, NAD CV- RR Pulm- CTAB RLE- 4/5 EHL and ADF. 5/5 to APF. Decreased sensation over anterolateral thigh, anteromedial left and dorsum of the foot, LLE- 5/5 EHL, ADP, APF. Sensation intact. The patient is ready to proceed with the planned surgical procedure today. Surgical consent form reviewed. Operative extremity marked. All questions sought and answered. Demetris Blakely MD Orthopaedic Surgery PGY4 07/11/2021 Spine Attending I have seen and examined the patient and agree with the resident's findings and plan. She cont to have back pain radiating to RLE. Exam as above. Will proceed with right L4-L5 hemilami with complete facetectomy and L4-S1 posterolateral instrumented fusion using ICBG. I reinforced need for continuednicotine avoidance post-op. documented in this encounter Miscellaneous Notes * Plan of Care - Robert Blankenship RN - 07/14/2021 4:11 AM EST OUTCOME EVALUATION NOTE: OUTCOME SUMMARY: Patient was A/O x4, VSS throughout shift on 3L NC Os sats intermittently dropping to high 80s. Painmoderately controlled. Up to commode to void frequently. Silver mepilex dressing CDI to spine. PO bisacodyl given for constipation. Plan to d/c today w/ FWW and home O2. Will continue to monitor. PLAN MOVING FORWARD: Pain control Mobilize Monitor LOC Monitor O2 sats while sleeping PRN bowel meds D/c planning INDIVIDUALIZED FALL PREVENTION: Patient-specific fall risk factors per assessment: [current deficits]: Hospital environment, generalized weakness Assistance [level of assistance required for transfers and ambulation]: SBA w/ FWW Supervision [direct monitoring required during toileting and ADLs]: min assist with ADL's Surveillance [continuous indirect monitoring]: Masimo, safety checks, hourly rounds, Q4 vitals, NKE Patient-specific fall prevention interventions for sensory deficits provided, if applicable: N/A * Consult Note - Yasmani Chaudhry RN - 07/13/2021 10:10 AM EST INPATIENT TOBACCO TREATMENT CONSULT NOTE DATE: 07/13/2021 NAME: Poppy Mclaughlin : 1960 Reason for visit: Poppy Mclaughlin was referred by Rios Gonzalez MD for smoking cessation counseling. Social History: Marital status: ETOH: denies Drug Use: denies Caffeine: coffee, occasionaly Smoking history: Type of tobacco used: ( ) Smokeless tobacco ( ) e-cigarette (X ) Cigarettes Brand currently smoking: L&M Current amount: 1 ppd Most recent quit attempt: April 2021 Are there other smokers in the home: also smokes Reasons for quitting: Preparation for surgery, recent oxygen requirement at night Ready to set a quit date: Pt reports that she has remained tobacco free for the past few months. She has had a couple puffs here and there, but not everyday. Stage of Change: Action (Pt has committed to a quit attempt and has remained tobacco-free for < 6 months) Precontemplative: Contemplative: Preparation: Action: Maintenance: Assessment/Plan: Referral received. Chart reviewed. I met with Poppy Mclaughlin to discuss her tobacco use and assess readiness to quit. I reviewed the physiology of addiction as well as apparent health risks specific for her. I reviewed several tips for helping with quitting including the 4D's, using straws cut the length of cigarettes, cinnamon sticks, flavored toothpicks, sugar free candy, etc.She has been provided with a Tobacco Treatment Program Brochure and the contents have been reviewed with her. Yasmani Chaudhry, MSN, RN, [facility] Tobacco Sampling Expert [facility] Pager #[phone] * Initial Assessments - Monica Rivera RN - 07/13/2021 7:54 AM EST Office of Care Management Initial Assessment Monica Rivera RN reviewed record and discussed patient with Care Team. Source of Information: Team, bedside nurse, medical record, and Patient Introduced self/reviewed role; services accepted. Reason for Hospitalization: back surgery Right L4-L5 hemilaminectomy with revision right transpedicular diskectomy, L4-S1 posterolateral instrumented fusion with right iliac crest bone graft Last COVID test: Lab Results Component Value Date [id number] Not Detected 07/11/2021 Past medical History: Past Medical History: Diagnosis Date ??? Allergy liquid abuterol, egg sensitivity ??? Breathing problem im seeing dr zaptaa ??? Chronic pain ??? Diabetes mellitus 03/19/2016 ??? Digestive problems 12-11 ?? gerd, nutcracker syndrome abdominal gistention dr holder ??? ENT disease 3-[address] alex ??? Headache(784.0) ? Hypertensive disease they have said my bp is running high ??? Skin disorder ?? acne Hospitalizations Within the Past 30 Days: no previous admission in last 30 days Current Decision-Making Capacity: Self Advance Care Planning: Attempt Cardiopulmonary Resuscitation - Inpatient <no information> -Advanced Directive: (not on file) If AD's have not been completed spouse José Manuel would be surrogate decision maker per [place] surrogate decision making law. (Only good for 180 days) Current Coping/Education/Information Needs: feels updated on the plan of care and hospital course Current Functional Ability: Assistive Equipment Functional Status Prior to Admission: Independent Home Environment: Others in the home: spouse. Current Living Arrangements: home/apartment/condo (one level mobile home, 10 ARELI to enter). Accessibility Concerns: . Stairs to manage Current DME: none (has 4 wheel walker) Home Address confirmed as: [address] [place] [address] [place] [address] Social & Family Supports: All names listed below confirmed with patient as current and correct Extended Emergency Contact Information Primary Emergency Contact: José Manuel Mclaughlin Address: [address] [place], [place] [address] [address] [facility] Relation: Spouse Secondary Emergency Contact: [facility]add Ferrera [facility] [id number] [facility] Relation: Child Mother: [facility]per[facility]acobyLety [facility] Current Care Provided by: self Provides Primary Care For: no one Caregiver if needed: spouse Quality of Family relationships: supportive Community Resources being provided currently: none Behavioral Health History: no concern noted Substance Use/Abuse confirmed: Social History Tobacco Use Smoking Status Current Every Day Smoker ??? Packs/day: 1.00 ??? Years: 20.00 ??? Pack years: 20.00 ??? Types: Cigarettes Smokeless Tobacco Never Used Tobacco Comment pt would like to speak with someone about quiting. 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 Has concentrator at home, no portables. Health/Prescription Coverage: Primary Insurance: MEDICARE Payor: MEDICARE / Plan: MEDICARE PART A & B / Product Type: *No Product type* / Secondary Insurance: Prescription Coverage: Yes Preferred Pharmacy: [facility] [address] [place] [address] [place] [id number] [facility] [address] Status: Patient is a : No Primary Care Provider: KIARA Jesus [phone] Patient/Caregiver Goals of Treatment: recovery post surgery Potential Needs for Transition of Care: none Agency Referrals: referral in place to [facility] Transportation: no concerns Transportation Anticipated: family or friend will provide (car by spouse) Concerns to be Addressed: discharge planning Assessment: Patient is s/p Right L4-L5 hemilaminectomy with revision right transpedicular diskectomy, L4-S1 posterolateral instrumented fusion with right iliac crest bone graft, anticipated to discharge home with support of spouse and home health upon completion of hospital course has prescription coverage, uses home O2 at night. Plan: A member of the Care Management team will continue to monitor progress, follow for continuity of care and assist with transition of care planning. Office of Care Management Surgery Team Curator Of Photography And Prints [email or web address] Pager #[phone] * Plan of Care - Georgette Zarate RN - 07/13/2021 2:24 AM EST OUTCOME EVALUATION NOTE: OUTCOME SUMMARY: A&Ox4, VSS on 2L NC, pain well controlled with medication (See MAR). Dressing over incision CDI, BAUDILIO having moderate serosanguineous output. Neurovascular checks remain unchanged, denies any numbness or tingling. Patient voiding frequently without difficulty, ambulating to [facility] x1 with FWW. Resting well in between care. PLAN MOVING FORWARD: Pain control Mobilize IV fluids INDIVIDUALIZED FALL PREVENTION INTERVENTIONS: Patient-specific fall risk factors per assessment: [current deficits]: Pain, medication, hospital environment, recent procedure. Assistance [level of assistance required for transfers and ambulation]: X1 with FWW Supervision [direct monitoring required during toileting and ADLs]: Hands on Surveillance [continuous indirect monitoring]: JULES Bailey, purposeful rounding, Room close to nurses station, bed alarm. Patient-specific fall prevention interventions for sensory deficits provided, if applicable: CPG GOAL OUTCOME EVALUATION: * Plan of Care - Lucretia Samuel RN - 07/12/2021 3:20 PM EST OUTCOME EVALUATION NOTE: OUTCOME SUMMARY: Patient progressing towards d/c goals appropriately at this time. Patient's pain adequately controlled with scheduled and PRN medications, see MAR for medications given. A&Ox4, VSS on 2L NC. Pt on 4L NC overnight, reports being on RA at home but desatted when weaned to RA, O2 reapplied and weaned down to 2L throughout the shift. Dressing to incision CDI. BAUDILIO draining moderate amount of serosanguineous drainage. Denies numbness or tingling. IV abx given. Worked w/ PT/OT, 1A w/ FWW. Hernadez pulled at 0830, pt unable to void. Bladder scanned for 376, scanned again after one hour for 448. Pt able to void 300 mL, PVR 259. Will continue to monitor and help patient reach d/c goals. PLAN MOVING FORWARD: Pain control Mobilize D/C planning INDIVIDUALIZED FALL PREVENTION: Patient is currently a high risk to Fall. Patient educated on bed/chair alarm, demonstrates proper use of call thomas and verbalizes understanding of fall preventions implemented. Patient-specific fall risk factors per assessment: [current deficits]: Pain, Medications, Hospital Environment, Impaired Mobility, Recent Surgery Assistance [level of assistance required for transfers and ambulation]: 1A w/ FWW Supervision [direct monitoring required during toileting and ADLs]: Eyes on with ADL's Surveillance [continuous indirect monitoring]: Masimo, Purposeful Rounding, Nurse Knowledge Exchange at Bedside, Bed Alarm Set * Brief Op Note - Rios Gonzalez MD - 07/11/2021 2:54 PM EST Brief Operative Note Patient Name: Poppy Pickeringthor : [id number] MR#: [id number] Case Date: 07/11/2021 Surgeon: Surgeon(s) and Role: * Rios Gonzalez MD - Primary * Demetris Blakely MD - Resident Preoperative diagnosis: Degenerative spondylolisthesis with spinal stenosis, recurrent foraminal and far lateral disk herniation Postoperative diagnosis: Degenerative spondylolisthesis with spinal stenosis, recurrent foraminal and far lateral disk herniation Procedure: Right L4-L5 hemilaminectomy with revision right transpedicular diskectomy, L4-S1 posterolateral instrumented fusion with right iliac crest bone graft ([id number], [id number], [id number], [id number], [id number], [id number], [id number]) Anesthesia: General Findings: There was severe foraminal stenosis on the right at L4-L5 due to scar formation and a recurrent foraminal and far lateral disk herniation. There was moderate right L4-L5 lateral recess stenosis. At the conclusion of the case the right L4 and L5 roots were fully decompressed. No CSF. Complications: None Intake: 1.7 L crystalloid Output: Estimated Blood Loss: 400 mL Urine Output:: 200 mL Drains: Lumbar x 1 Specimens removed during surgery: None Disposition: awakened from anesthesia, extubated and taken to the recovery room in a stable condition, having suffered no apparent untoward event. Condition: doing well without problems Attestation: Case Date: 07/11/2021 I was present and I participated during the entire procedure (does not need to include opening and closing). * Op Note - Rios Gonzalez MD - 07/11/2021 11:03 AM EST [facility] [place] Operative Note Patient Name: Poppy Mclaughlin : [id number] MR#: [id number] Case Date: 07/11/2021 Surgeon: Surgeon(s) and Role: * Rios Gonzalez MD - Primary * Demetris Blakely MD - Resident Preoperative diagnosis: Degenerative spondylolisthesis with spinal stenosis, recurrent foraminal and far lateral disk herniation Postoperative diagnosis: Degenerative spondylolisthesis with spinal stenosis, recurrent foraminal and far lateral disk herniation Procedure: 1. L4-S1 posterolateral fusion 2. Right L4-L5 revision transpedicular discectomy 3. Right L4-L5 hemilaminectomy with facetectomy and foraminotomies 4. Pedicle screw instrumentation L4-S1 5. Right iliac crest bone grafting Implants: Globus Creo Anesthesia: General Operative findings: There was severe foraminal stenosis on the right at L4-L5 due to scar formationand a recurrent foraminal and far lateral disk herniation. There was moderate right L4-L5 lateral recess stenosis. At the conclusion of the case the right L4 and L5 roots were fully decompressed. Indications for procedure: Ms. Mclaughlin is a 60-year-old female who had previously undergone a right L4-L5 far lateral discectomy with a good result. She subsequently developed back pain radiating to her right lower extremity in the setting of spondylolisthesis at L4-L5 and L5-S1 with a right L4-L5 recurrent foraminal and far lateral disc herniation and right L4-L5 lateral recess stenosis. She failed to improve despite nonoperative treatment and elected undergo surgery after a full discussion of the potential risks and benefits thereof. Description of procedure: The patient was taken to the operating room, and general anesthesia was administered. She was positioned prone on Long spine table with all bony prominences well-padded. A timeout was performed to identify the patient and the planned procedure. She received preoperativeantibiotics. The back was prepped with Hibiclens and DuraPrep and draped in the usual sterile fashion. The area of the planned incision was injected with 15 cc of 0.25% Marcaine. A midline incision was made from approximately L3-S1. The electrocautery was used to dissect down to the level of the fascia, which was divided in the midline. The paraspinal muscles were elevated from the spinous processes and laminae from L3-S1. Dissection further laterally brought us to the L4 and L5 transverse processes and the sacral ala. Care was taken not to disrupt the L3-L4 facet capsules. The C-arm was brought in, and we confirmed our level. The facet capsules at L4- L5 and L5-S1 were taken down. We then turned our attention to placing pedicle screws. We started at the sacrum. The starting oint was identified using anatomic and radial graphic landmarks and opened with a high-speed bur. The pedicle was cannulated with a pedicle finder. The ball-tip probe was used to confirm bone on all aspects of the airline pilot hole. The sacral ala or transverse process was decorticated with a high-speed bur. The pedicle screw was placed under direct fluoroscopic guidance. Screws were placed in this fashion bilaterally from L4-S1. AP and lateral fluoroscopy demonstrated appropriate position of the hardware. We then turned our attention to harvesting the right iliac crest bone graft. We dissected just superficial to the fascia to the right iliac crest. This was exposed in a subperiosteal fashion. The capof iliac crest was removed with osteotomes. The cancellous bone between the tables was harvested with a gouge. The bone graft harvest site was copiously irrigated. Hemostasis was achieved with bone wax. The fascia was closing interrupted #1 Vicryl. The space was closed using interrupted #1 Vicryl. We then turned our attention to the right L4-L5 hemilaminectomy. The ligamentum flavum was elevatedfrom the cranial edge of the right L5 hemilamina, and a right L5 hemilaminectomy was performed downto the level of the L5 pedicle. We then used our Kerrison to remove the flavum from the interspace and perform a right L4 hemilaminectomy up to the level of the L4 pedicle. We performed a foraminotomy on the right at L4-L5 after identifying the exiting L4 nerve root. We transected the pars and removed the inferior L4 facet. We removed the superior and medial aspect of the L5 superior facet and confirmed that the traversing L5 nerve root was fully decompressed. We performed a foraminotomy at the entry zone of the L5-S1 foramen and confirmed that the exiting L5 nerve root was fully decompressed. We then turned our attention to the revision transpedicular discectomy. There was significant scarring around the right L4 nerve root in the foramen and far lateral space. We mobilized the root and explored the axilla of the root. We encountered multiple fragments of extruded disc material in the foraminal and far lateral space. These were removed. We confirmed that the exiting L4 nerve root was fully decompressed. Hemostasis was achieved in the epidural space using the bipolar and FloSeal. The wound was irrigated with 3 L of normal saline containing bacitracin. The posterior elements from L4-S1 on the left were decorticated with a high-speed bur. The right L5-S1 facet joint was decorticated with a high-speedbur. The iliac crest bone graft and morselized local bone graft was placed over the decorticated posterior elements from L4-S1. Rods were placed into the screw heads and fixed in place with caps. These were tightened using the torque- limited screwdriver. AP and lateral fluoroscopy demonstrated appropriate position of the hardware. 1 g of vancomycin powder was placed in the wound. A drain was placed exiting inferiorly on the left. The fascia was closing interrupted #1 Vicryl. The subcutaneous tissues were closed using interrupted 2-0 Vicryl. The skin was closed using 3-0 nylon in a vertical mattress fashion. Incision was injected with an additional 15 cc of 0.25% Marcaine. A Mepilex dressing was applied. The patient was transferred to the hospital bed and awakened from general anesthesia. She was taken to the recovery room in stable condition. There were no evident complications. Attestation: Case Date: 07/11/2021 I was present and I participated during the entire procedure (does not need to include opening and closing). RIOS GONZALEZ MD 07/11/2021 documented in this encounter Plan of Treatment Not on file documented as of this encounter Procedures Procedure Name Priority Date/Time Associated Diagnosis Comments LAVENDER TUBE HOLD Routine 07/14/2021 11 :33 AM EST HC MAGNESIUM, SERUM Routine 07/14/2021 1 1:33 AM EST HC VENIPUNCTURE Routine 07/14/2021 11:33 AM EST HC MAGNESIUM, SERUM Routine 07/13/2021 9 :26 AM EST HC VENIPUNCTURE Routine 07/13/2021 9:26 AM EST HEMOGRAM Routine 07/12/2021 2:20 AM EST DIFFERENTIAL, AUTOMATED Routine 07/12/20 2:20 AM EST HC CBC,PLT & AUTO DIFF Routine 2:20 AM EST BASIC METABOLIC PANEL Routine 07/12/2021 2:20 AM EST XR LUMBAR SPINE 2 OR 3 VIEWS STAT 07/11/2021 7:18 PM EST TRANSPEDICULAR LUMBAR DCOMPRESS SPINAL CORD/EQUINA/NERVE ROOTS 1LVL Routine 07/11/2021 2:50 PM EST Spondylolisthesis of lumbar region XR FLUORO NO RAD <1HR - OR USE Routine 07/11/2021 2:33 PM EST Laminec/Facetect/Forami n, Lumbar 1 Seg ([id number]) 07/11/2021 10:21 AM EST Spondylolisthesis of lumbar region Decompress Spinal Cord, 1 Seg ([id number]) 07/11/2021 10:21 AM EST Spondylolisthesis of lumbar region MODIFIER L5 07/11/2021 10:21 AM EST Spondylolisthesis of lumbar region MODIFIER L4 07/11/2021 10:21 AM EST Spondylolisthesis of lumbar region MODIFIER GLOBUS CREO 07/11/2021 10:21 AM EST Spondylolisthesis of lumbar region Autograft Spine Surgery Morselized Sep Incision ([id number]) 07/11/2021 10:21 AM EST Spondylolisthesis of lumbar region Posterior Segmental Instrumentation 3-6 Vrt Seg ([id number]) 07/11/2021 10:21 AM EST Spondylolisthesis of lumbar region Guevara Facetectomy&Foramot 1 Vrt Sgm Ea Addl Sgm ([id number]) 07/11/2021 10:21 AM EST Spondylolisthesis of lumbar region Arthrodesis Posterior/Pstlat Technique 1 Interspace Lumbar, Ea Add'L Interspace ([id number]) 07/11/2021 10:21 AM EST Spondylolisthesis of lumbar region Arthrodesis Posterior/Pstlat Technique 1 Interspace Lumbar ([id number]) 07/11/2021 10:21 AM EST Spondylolisthesis of lumbar region RAPID COVID-19 PCR ([facility]) Routine 07/11/2021 10:16 AM EST ADD'L INTERSPACES CX., THORACIC, LUMBAR Routine 07/11/2021 8:58 AM EST Spondylolisthesis of lumbar region LAMINECTOMY, FACETECTOMY & FORAMINOTOMY,LUMAR, ONE LEVEL Routine 07/11/2021 8:58 AM EST Spondylolisthesis of lumbar region POST SPINAL INSTRUMENTATION, 3-6 VERTEBRA,NON SEGMENTAL Routine 07/11/2021 8:58 AM EST Spondylolisthesis of lumbar region ARTHRODESIS,POSTERIOR VERTEBRAL EA.ADD.SEGMENT Routine 07/11/2021 8:58 AM EST Spondylolisthesis of lumbar region ARTHRODESIS,LUMBAR SPINE,SINGLE LEVEL Routine 07/11/2021 8:58 AM EST Spondylolisthesis of lumbar region AUTOGRAFT FOR SPINE SURGERY ONLY;MORSELIZED Routine 07/11/2021 8:58 AM EST Spondylolisthesis of lumbar region documented in this encounter Results * Lavender Tube HOLD (07/14/2021 11:33 AM EST) Lavender Hold Sample in lab. [facility] Blood Venous Draw / Unknown 07/14/2021 11:33 AM EST 07/14/2021 12:16 PM EST Jane León SLITTER HELPER HEMATOLOGY ORDERABL ES [facility] [place] [address] * Magnesium (07/14/2021 11:33 AM EST) Magnesium 0.87 0.69 - 1.07 mmol/L [facility] Blood 07/14/2021 11:3 3 AM EST 07/14/2021 12:15 PM EST Narrative Resulting Agency Comment Spec In Lab Jane León MANUELA CHEMISTRY ORDERABLE S [facility] [place] [address] * Basic Metabolic Panel (non-fasting) (07/14/2021 11:33 AM EST) Glucose 115 65 - 199 mg/dL [facility] Comment:Diabetes: >=200 mg/d L plus symptoms Blood Urea Nitrogen 16 8 - 18 mg/dL [facility] Creatinine 0.96 0.70 - 1.20 mg/dL [facility] Sodium 137 135 - 145 mmol/L [facility] Potassium 4.4 3.5 - 5.0 mmol/L [facility] Comment: Please note: ??Patients with WBC >100,000 may have falsely elevated Potassium levels. ??For accurate Potassium quantification in these patients send serum separator tube (gold top) for subsequent determinations. ??Contact the Clinical Chemistry Laboratory if there are any questions. Chloride 99 98 - 107 mmol/L [facility] Carbon Dioxide 27 22 - 31 mmol/L [facility] Anion Gap 11 5 - 15 mmol/L [facility] Calcium 9.8 8.5 - 10.5 mg/dL [facility] Est Glomerular Filtration Rate 65 >=60 mL/min/1. 73 m?? [facility] Comment: This patient? s estimated [...] Agency Comment Spec In Lab Jane León MANUELA CHEMISTRY ORDERABLE S [facility] [place] [address] * (ABNORMAL) Magnesium (07/13/2021 9:26 AM EST) Magnesium 0.65(L) 0.69 - 1.07 mmol/L [facility] Blood 07/13/2021 9:26 AM EST 07/13/2021 9:53 AM EST Narrative Resulting Agency Comment Spec In Lab Jane León MANUELA CHEMISTRY ORDERABLE S Performing Organization Address [facility] Co de Phone Number [facility] [place] [address] * (ABNORMAL) Basic Metabolic Panel (non-fasting) (07/13/2021 9:26 AM EST) Glucose 146 65 - 199 mg/dL [facility] Comment:Diabetes: >=200 mg/d L plus symptoms Blood Urea Nitrogen 20(H) 8 - 18 mg/dL [facility] Creatinine 1.11 0.70 - 1.20 mg/dL [facility] Sodium 137 135 - 145 mmol/L [facility] Potassium 4.1 3.5 - 5.0 mmol/L [facility] Comment: Please note: ??Patients with WBC >100,000 may have falsely elevated Potassium levels. ??For accurate Potassium quantification in these patients send serum separator tube (gold top) for subsequent determinations. ??Contact the Clinical Chemistry Laboratory if there are any questions. Chloride 102 98 - 107 mmol/L [facility] Carbon Dioxide 26 22 - 31 mmol/L [facility] Anion Gap 9 5 - 15 mmol/L [facility] Calcium 9.0 8.5 - 10.5 mg/dL [facility] Est Glomerular Filtration Rate 55(L) >=60 mL/min/1. 73 m?? [facility] Comment: This patient? s estimated glomerular filtration rate (eGFR) is between 55 mL/min/1.73 m2 (patients with less muscle mass) and 63 mL/min/1.73 m2 (patients with more muscle mass) [...] and symptoms in addition to eGFR. Blood 07/13/2021 9:26 AM EST 07/13/2021 9:53 AM EST Narrative Resulting Agency Comment Spec In Lab Jane León APRN CHEMISTRY ORDERABLE S Performing Organization Address City/State/[facility] Co de Phone Number [facility] [place] [address] * (ABNORMAL) Differential, Automated (07/12/2021 2:20 AM EST) Neutrophil % 83.4 % [facility] Neutrophil Absolute 11.61(H) 1.70 - 6.10 x10(3)/mc L [facility] Lymph % 10.9 % [facility] Lymphocytes Abs 1.5 0.9 - 3.2 x10(3)/mc L [facility] Monocyte % 5.2 % [facility] Monocyte Abs 0.7 0.3 - 0.9 x10(3)/mc L [facility] Eos % 0.0 % [facility] Eosinophils Abs 0.0 0.0 - 0.4 x10(3)/mc L [facility] Basophil % 0.1 % [facility] Baso Absolute 0.0 0.0 - 0.1 x10(3)/mc L [facility] Immature Gran % 0.40 % [facility] Comment: Immature granulocytes(IG's)percentage and absolute count will include metamyelocytes, myelocytes, and promyelocytes. Blood smears from CBCs yielding IG's will be scanned manually for concordance. If this scan disagrees with the automated IG or if promyelocytes are noted, a manual differential will be performed. Immature Gran Absolute 0.05(H) 0.00 - 0.04 x10(3)/mc L [facility] Blood 07/12/2021 2:20 AM EST 07/12/2021 2:34 AM EST Narrative Resulting Agency Comment Spec In Lab Demetris Blakely MD HEMATOLOGY ORDERABLE S [facility] [place] [address] * (ABNORMAL) Hemogram (07/12/2021 2:20 AM EST) White Blood Cell 13.9(H) 4.0 - 9.5 x10(3)/mc L [facility] Red Blood Cell 3.42(L) 4.00 - 5.21 x10(6)/mc L [facility] Hemoglobin 10.2(L) 11.7 - 15.5 g/dL [facility] Hematocrit 32.2(L) 35.7 - 45.8 % [facility] Mean Cell Volume 94.2 82.6 - 94.4 fL [facility] Mean Cell Hemoglobin 29.8 27.1 - 32.0 pg [facility] Mean Cell Hemoglobin Concentration 31.7 31.7 - 35.0 g/dL [facility] Platelet 168 145 - 357 x10(3)/mc L [facility] RDW Standard Deviation 47.3(H) 37.0 - 46.0 fL [facility] RDW coefficient of variation 13.7 11.5 - 14.1 % [facility] Mean Platelet Volume 11.6 7.6 - 12.9 fL [facility] NRBC% auto 0.0 % [facility] NRBC Absolute 0.000 0.000 - 0.000 x10(3)/mc L [facility] Blood 07/12/2021 2:20 AM EST 07/12/2021 2:34 AM EST Narrative Resulting Agency Comment Spec In Lab Demetris Blakely MD HEMATOLOGY ORDERABLE S [facility] [place] [address] * (ABNORMAL) Basic Metabolic Panel (non-fasting) (07/12/2021 2:20 AM EST) Glucose 150 65 - 199 mg/dL [facility] Comment:Diabetes: >=200 mg/d L plus symptoms Blood Urea Nitrogen 17 8 - 18 mg/dL [facility] Creatinine 1.12 0.70 - 1.20 mg/dL [facility] Sodium 140 135 - 145 mmol/L [facility] Potassium 4.8 3.5 - 5.0 mmol/L [facility] Comment: Please note: ??Patients with WBC >100,000 may have falsely elevated Potassium levels. ??For accurate Potassium quantification in these patients send serum separator tube (gold top) for subsequent determinations. ??Contact the Clinical Chemistry Laboratory if there are any questions. Chloride 105 98 - 107 mmol/L [facility] Carbon Dioxide 25 22 - 31 mmol/L [facility] Anion Gap 10 5 - 15 mmol/L [facility] Calcium 8.6 8.5 - 10.5 mg/dL [facility] Comment:result rechecked-ng Est Glomerular Filtration Rate 54(L) >=60 mL/min/1. 73 m?? [facility] Comment: This patient? s estimated glomerular filtration rate (eGFR) is between 54 mL/min/1.73 m2 (patients with less muscle mass) and 63 mL/min/1.73 m2 (patients with more muscle mass) [...] and symptoms in addition to eGFR. Blood 07/12/2021 2:20 AM EST 07/12/2021 2:34 AM EST Narrative Resulting Agency Comment Spec In Lab Rios Gonzalez MD CHEMISTRY ORDERABLES [facility] [place] [id number] * XR Lumbar Spine 2 Or 3 Views (Generic) (07/11/2021 7:18 PM EST) Anatomical Region Laterality Modality L-spine N/A Digital Radiogra phy Impressions 07/11/2021 7:55 PM EST FINDINGS/IMPRESSION: Patient is status posterior williams and interlocking transpedicular screws fixation from L5 to S1 without immediate postoperative complication. There is residual 9.0 mm anterolisthesis of L5 on S1 and 3.5 mm anterolisthesis of L4 on L5. Expected postoperative changes are noted in the soft tissues. Thank you for letting us participate in the care of this patient. ??If you are a health care provider and have any questions regarding this report, please contact the number below. ??For patients who have questions please contact the health memory care program resident that requested your imaging first. ? Electronically signed by: Bianca Mcdonnell MD, [facility] ([phone]), at 07/11/2021 7:55 PM Narrative 07/11/2021 7:55 PM EST EXAMINATION: XR LUMBAR SPINE 2 OR 3 VIEWS (GENERIC) CLINICAL HISTORY: S/p L4-S1 instrumented fusion and L4-5 right sided decompression TECHNIQUE: 2 views of the lumbar spine are provided for review. COMPARISON: 05/04/2021 Procedure Note Bianca Mcdonnell MD - 07/11/2021 EXAMINATION: XR LUMBAR SPINE 2 OR 3 VIEWS (GENERIC) CLINICAL HISTORY: S/p L4-S1 instrumented fusion and L4-5 right sided decompression TECHNIQUE: 2 views of the lumbar spine are provided for review. COMPARISON: 05/04/2021 IMPRESSION FINDINGS/IMPRESSION: Patient is status posterior williams and interlocking transpedicular screws fixation from L5 to S1 without immediatepostoperative complication. There is residual 9.0 mm anterolisthesis of L5 on S1 and 3.5mm anterolisthesis of L4 on L5. Expected postoperative changes are noted inthe soft tissues. Thank you for letting us participate in the care of this patient. If youare a health care provider and have any questions regarding this report,please contact the number below. For patients who have questions please contactthe health memory care program resident that requested your imaging first. Electronically signed by: Bianca Mcdonnell MD, [facility]([phone]), at 07/11/2021 7:55 PM Rios Gonzalez MD IMG DX ORDERABLES * XR Fluoro No Rad <1Hr - OR Use (07/11/2021 2:33 PM EST) Narrative Dicom, Auditing User - 07/11/2021 2:34 PM EST This exam is auto-finalizing. No interpretation was done. Rios DU FLUORO ORDERABLE S * COVID-19 PCR (07/11/2021 10:16 AM EST) SARS-CoV-2 RNA (Rapid) Not Detected Not Detected [facility] Comment: This result should be interpreted in combination with the clinical observations, patient history and epidemiological information. For testing of asymptomatic individuals, assay performance characteristics and clinical utility have not been evaluated. Testing for SARS-CoV-2 (Severe acute respiratory syndrome coronavirus 2, formerly known as 2019 novel coronavirus or 2019-nCoV) to aid in the diagnosis of COVID-19 is performed using the Simplexa COVID-19 Direct Assay by [employer] as authorized by the FDA issued Emergency Use Authorization (EUA). This assay is intended for In-vitro Diagnostic (IVD) use with nasopharyngeal swabs collected from individuals meeting the CDC criteria for testing. The assay is performed based on the instructions for use and additional guidance provided by the FDA. Testing is performed in the Microbiology Laboratory within the Department of Pathology and Laboratory Medicine at [facility], certified under the Clinical Laboratory Improvement Amendments of 1988 (CLIA), 42 U.S.C. section 263a, to perform high complexity tests. Assay performance has been verified according to clinical laboratory regulatory requirements. Test results are provided above. A result of Not Detected indicates that the viral RNA target is not present but does not preclude SARS-CoV-2 infection. False negative results may occur if a specimen is improperly collected, transported or handled; if amplification inhibitors are present; or if inadequate numbers of viral particles are present in the specimen. A result of Detected suggests a current or recent infection and the patient is presumed to be infected. Positive and negative predictive values for this test are highly dependent on disease prevalence. A result of Invalid indicates the inability to conclusively determine the presence or absence of SARS-CoV-2 RNA in the sample which can be due to a variety of factors. Recollection is recommended in the case of an invalid result. CDC COVID-19 criteria for testing on human specimens and clinical management guidance information are available at the CDC Coronavirus Disease 2019 (COVID-19) webpage under Information for Healthcare Professionals (https://www.cdc.gov/coronavirus/2019-ncov/hcp/index.html). Additional information about this and other EUA tests can be found in provider and patient fact sheets at the following FDA website: https://www.fda.gov/medical-devices/rlsrhnwyton-kshacxn-1020-narfe-83-wrwbfxuoo- use-a suehozpbhsvai-cyyiida-hddsnoa/dtsgg-ymezjxwpbyz-acrt SARS-CoV-2 Source [employer] Swab [facility] Nasopharyngeal Swab 07/11/20 10:16 AM EST 07/11/2021 11:24 AM EST Comment:Symptoms->Surveillan ce Narrative Resulting Agency Comment Spec In Lab Sanaz Coffey [employer]PECTING [employer] TESTING LEAD HAND MICROBIOLOGY - GENER AL ORDERABLES [facility] [place] [address] documented in this encounter Visit Diagnoses Diagnosis s/p Right L4-5 hemilaminectomy and L4-S1 instrumented fusion on 07/11/21 (Dr. Gonzalez)- Primary Arthrodesis status Spondylolisthesis of lumbar region Acquired spondylolisthesis s/p Right L4-5 hemilaminectomy and L4-S1 instrumented fusion on 07/11/21 (Dr. Gonzalez) Arthrodesis status documented in this encounter Admitting Diagnoses Diagnosis Status post lumbar spinal fusion Arthrodesis status documented in this encounter Administered Medications Inactive Administered Medications - up to 3 most recent administrations Medication Order MAR Action Action Date Dose Rate Site acetaminophen (Tylenol) tablet 1,000 mg 1,000 mg, Oral, ONCE, 1 dose, On Sat07/11/21 at 1000, Administer with SIP of H2O only., Day of Surgery (Day of Procedure), Routine Given 07/11/2021 10:00 AM EST 1,000 mg acetaminophen (Tylenol) tablet 1,000 mg 1,000 mg, Oral, EVERY 8 HOURS SCHEDULED, First dose on Sat07/11/21 at 1630, Until Discontinued, Maximum dose of acetaminophen is 4000 mg from all sources in 24 hours. When ordered for pain, acetaminophen should be given even when other ordered pain medications are indicated. , Routine Given 07/13/2021 5:14 AM EST 1,000 mg Given 07/12/2021 10:31 PM EST 1,000 mg Given 07/12/2021 2:06 PM EST 1,000 mg acetaminophen (Tylenol) tablet 1,000 mg 1,000 mg, Oral, EVERY 6 HOURS SCHEDULED, First dose (after last modification) on Sat07/13/21 at 1200, Until Discontinued, Maximum dose of acetaminophen is 4000 mg from all sources in 24 hours. When ordered for pain, acetaminophen should be given even when other ordered pain medications are indicated. , Routine Given 07/14/2021 12:55 PM EST 1,000 mg Given 07/14/2021 5:26 AM EST 1,000 mg Given 07/13/2021 11:09 PM EST 1,000 mg ascorbic acid (Vitamin C) (Vitamin C) tablet 500 mg 500 mg, Oral, DAILY, First dose on Sat07/12/21 at 0900, Until Discontinued Given 07/14/2021 9:08 AM EST 500 mg Given 07/13/2021 8:47 AM EST 500 mg Given 07/12/2021 8:11 AM EST 500 mg bisacodyL (Dulcolax) suppository 10 mg 10 mg, Rectal, DAILY, First dose (after last modification) on Sat07/14/21 at 0900, Until Discontinued, Administer if no bowel movement within 48 hours to achieve: (1) One bowel movement at least every 48 hours, AND (2) without straining., Routine Given 07/14/2021 9:07 AM EST 10 mg bisacodyl EC (Dulcolax) tablet 10 mg 10 mg, Oral, 2 TIMES DAILY PRN, Starting on Sat07/13/21 at 1505, Until Sat07/14/21 at 1610, Constipation, DO NOT CRUSH OR OPEN Administer if no bowel movement within 48 hours to achieve: (1) One bowel movement at least every 48 hours, AND (2) without straining. If multiple PRN bowel medications ordered, start with polyethylene glycol, then lactulose, then oral bisacodyl, then bisacodyl suppository, then magnesium citrate, then tap water enema. Multiple medications may be given concomitantly for constipation., Routine Given 07/14/2021 3:08 AM EST 10 mg budesonide-formoteroL (Symbicort) 160-4.5 mcg/actuation inhaler 2 Inhalation 2 Inhalation , Inhalation, 2 TIMES DAILY, First dose on Sat07/13/21 at 2100, Until Discontinued, Routine Given 07/14/2021 9:30 AM EST 2 Inhalati on Given 07/13/2021 9:26 PM EST 2 Inhalation buPROPion SR (Wellbutrin SR) tablet 200 mg 200 mg, Oral, DAILY, First dose on Sat07/12/21 at 0900, Until Discontinued, DO NOT CRUSH OR OPEN, Routine Given 07/14/2021 9:08 AM EST 200 mg Given 07/13/2021 9:00 AM EST 200 mg Given 07/12/2021 8:11 AM EST 200 mg ceFAZolin (Ancef) 1 g in dextrose 5% 50 mL infusion 1 g, Intravenous, EVERY 8 HOURS, 3 doses, First dose on Sat07/11/21 at 1630, Last dose on Sat07/12/21 at 0830, Administer over 30 Minutes, Adjust to 4 hours from intraoperative dose. * Beta-lactam based antibiotics (eg. Ampicillin, Cefazolin, Aztreonam) should be administered within 4 hours of the preceding intraoperative dose. * Vancomycin, Flouroquinolones, Clindamycin, Gentamicin, and Metronidazole should be administered within 8 hours of the preceding intraoperative dose., Recovery (Recovery-Hospital Unit), Indication for (Active or Suspected): Prophylaxis New Bag 07/12/2021 2:12 PM EST 1 g 100 mL/hr New Bag 07/12/2021 5:55 AM EST 1 g 100 mL/hr New Bag 07/11/2021 10:14 PM EST 1 g 100 mL/hr DULoxetine DR (Cymbalta) capsule 30 mg 30 mg, Oral, DAILY, First dose on Sat07/12/21 at 0900, Until Discontinued, Routine Given 07/14/2021 9:07 AM EST 30 mg Given 07/13/2021 9:00 AM EST 30 mg Given 07/12/2021 8:12 AM EST 30 mg gabapentin (Neurontin) capsule 600 mg 600 mg, Oral, ONCE, 1 dose, On Sat07/11/21 at 1000, Administer with SIP of H2O only., Day of Surgery (Day of Procedure), Routine Given 07/11/2021 10:00 AM EST 600 mg lactated ringers infusion 1,000 mL, at 100 mL/hr, Intravenous, CONTINUOUS, Starting on Sat07/11/21 at 1000, Until Sat07/11/21 at 1801, Day of Surgery (Day of Procedure) New Bag 07/11/2021 10:11 AM EST 1,000 mLs 100 mL/hr lactated ringers infusion 75 mL/hr, Intravenous, CONTINUOUS, Starting on Sat07/11/21 at 1630, Until Jessie 07/13/21 at 0735, Recovery (Recovery-Hospital Unit) New Bag 07/12/2021 10:35 PM EST 75 mL/hr 75 mL /hr New Bag 07/12/2021 5:56 AM EST 75 mL/hr 75 mL/hr New Bag 07/11/2021 4:10 PM EST 75 mL/hr 75 mL/hr lactated ringers infusion 750 mL, at 250 mL/hr, Intravenous, ONCE, 1 dose, On Sat07/12/21 at 1730 New Bag 07/12/2021 4:56 PM EST 750 mLs 250 mL/hr lactulose (Chronulac) (0.67 gram/mL) oral liquid 20 g 20 g, Oral, DAILY PRN, Starting on Sat07/13/21 at 1505, Until Sat07/14/21 at 1610, Constipation, Administer if needed per patient's routine or if no bowel movement within 48 hours to achieve: (1) One bowel movement at least every 48 hours, AND (2) Without straining. Start with 30 mL orally. If no bowel movement within 24 hours, increase to 60 mL orally Once Daily PRN. If multiple PRN bowel medications ordered, start with polyethylene glycol, then lactulose, then oral bisacodyl, then bisacodyl suppository, then magnesium citrate, then tap water enema. Multiple medications may be given concomitantly for constipation., Routine Given 07/13/2021 5:17 PM EST 20 g lidocaine (Lidoderm) 5% patch 3 patch 3 patch, Transdermal, EVERY 24 HOURS, First dose on Sat07/13/21 at 1030, Until Discontinued, Apply patch(es) for 12 hours, and then remove for 12 hours., Routine Patch Applied 07/14/2021 10:50 AM EST 3 patches 06- Back Upper (Right) Patch Applied 07/13/2021 10:31 AM EST 3 patches 06- Back Upper (Right) lidocaine (Lidoderm) topical patch REMOVAL Transdermal, EVERY 24 HOURS, First dose on Sat07/13/21 at 2230, Until Discontinued, Remove lidocaine 5% patch lisinopriL (Zestril) tablet 10 mg 10 mg, Oral, DAILY, First dose on Sat07/12/21 at 0900, Until Discontinued, Hold if SBP<115, Routine Given 07/14/2021 9:07 AM EST 10 mg Given 07/13/2021 8:48 AM EST 10 mg Given 07/12/2021 8:11 AM EST 10 mg magnesium sulfate 2 g in sterile water 50 mL infusion 2 g, Intravenous, ONCE, 1 dose, On Sat07/13/21 at 1600, Administer over 120 Minutes New Bag 07/13/2021 5:15 PM EST 2 g 25 mL/hr melatonin tablet 6 mg 6 mg, Oral, NIGHTLY PRN, Starting on Sat07/13/21 at 0942, Until Sat07/14/21 at 1610, sleep, Routine montelukast (Singulair) tablet 10 mg 10 mg, Oral, NIGHTLY, First dose on Sat07/11/21 at 2100, Until Discontinued, Routine Given 07/13/2021 9:26 PM EST 10 mg Given 07/12/2021 8:05 PM EST 10 mg Given 07/11/2021 10:16 PM EST 10 mg multivitamin with minerals (Thera M) tablet 1 tablet 1 tablet, Oral, DAILY, First dose on Sat07/12/21 at 0900, Until Discontinued, Routine Given 07/14/2021 9:08 AM EST 1 tablet Given 07/13/2021 8:45 AM EST 1 tablet Given 07/12/2021 8:10 AM EST 1 tablet oxyCODONE (Roxicodone) tablet 10 mg 10 mg, Oral, EVERY 4 HOURS PRN, Starting on Sat07/11/21 at 1602, Until Sat07/13/21 at 1514, Pain, moderate pain (4-6), For moderate pain (4-6). Do not exceed 15 mg in 4 hours. If pain not relieved, call provider., Routine Given 07/13/2021 5:14 AM EST 1 0 mg Given 07/11/2021 4:25 PM EST 10 mg oxyCODONE (Roxicodone) tablet 10 mg 10 mg, Oral, EVERY 4 HOURS PRN, Starting on Sat07/13/21 at 1513, Until Sat07/13/21 at 1815, Pain, moderate to severe pain (6-10), If pain not relieved, call provider., Routine Given 07/13/2021 5:1 7 PM EST 10 mg oxyCODONE (Roxicodone) tablet 15 mg 15 mg, Oral, EVERY 4 HOURS PRN, Starting on Sat07/11/21 at 1602, Until Sat07/13/21 at 1514, Pain, severe pain (7-10), For severe pain (7-10). Do not exceed 15 mg in 4 hours. If pain not relieved, call provider., Routine Given 07/12/2021 8:0 5 PM EST 15 mg oxyCODONE (Roxicodone) tablet 2.5 mg 2.5 mg, Oral, EVERY 4 HOURS PRN, Starting on Sat07/13/21 at 1814, Until Sat07/14/21 at 1610, Pain, mild to moderate pain (1-5) Hold for sedation, If pain not relieved, call provider, Routine Given 07/14/2021 9:08 AM EST 2.5 mg oxyCODONE (Roxicodone) tablet 5 mg 5 mg, Oral, EVERY 4 HOURS PRN, Starting on Sat07/11/21 at 1602, Until Sat07/13/21 at 1514, Pain, mild pain (1-3), For mild pain (1-3). Do not exceed 15 mg in 4 hours. If pain not relieved, call provider, Routine Given 07/12/2021 4:09 PM EST 5 mg Given 07/12/2021 10:51 AM EST 5 mg Given 07/12/2021 6:03 AM EST 5 mg oxyCODONE (Roxicodone) tablet 5 mg 5 mg, Oral, EVERY 4 HOURS PRN, Starting on Sat07/13/21 at 1814, Until Sat07/14/21 at 1610, Pain, moderate to severe pain (6-10) Hold for sedation, If pain not relieved, call provider., Routine Given 07/14/2021 1:11 PM EST 5 mg Given 07/14/2021 5:26 AM EST 5 mg Given 07/13/2021 9:27 PM EST 5 mg polyethylene glycoL (Miralax) packet 17 g 17 g, Oral, 2 TIMES DAILY, First dose on Sat07/11/21 at 2100, Until Discontinued, Routine Given 07/14/2021 9:08 AM EST 17 g Given 07/13/2021 9:25 PM EST 17 g Given 07/13/2021 8:45 AM EST 17 g pregabalin (Lyrica) capsule 150 mg 150 mg, Oral, 2 TIMES DAILY, First dose on Sat07/11/21 at 2100, Until Discontinued, Routine Given 07/14/2021 9:07 AM EST 150 mg Given 07/13/2021 9:26 PM EST 150 mg Given 07/13/2021 8:48 AM EST 150 mg rosuvastatin (Crestor) tablet 10 mg 10 mg, Oral, NIGHTLY, First dose on Sat07/11/21 at 2100, Until Discontinued, Routine Given 07/13/2021 9:2 6 PM EST 10 mg Given 07/12/2021 8:05 PM EST 10 mg Given 07/11/2021 10:12 PM EST 10 mg senna-docusate (Pericolace) 8.6-50 mg per tablet 2 tablet 2 tablet, Oral, 2 TIMES DAILY, First dose on Sat07/11/21 at 2100, Until Discontinued, Routine Given 07/14/2021 9:08 AM EST 2 tablets Given 07/13/2021 9:26 PM EST 2 tablets Given 07/13/2021 8:45 AM EST 2 tablets sodium chloride 0.9 % (flush) (BD PosiFlush Normal Saline 0.9) flush 5 mL 5 mL, Intravenous, 2 TIMES DAILY, First dose on Sat07/11/21 at 2100, Until Discontinued, Recovery (Recovery-Hospital Unit), Routine Given 07/14/2021 9:30 AM EST 5 mLs Given 07/13/2021 9:26 PM EST 5 mLs Given 07/12/2021 8:06 PM EST 5 mLs documented in this encounter Active and Recently Administered Medications Times are shown in EST. Scheduled Medication Order 07/12/2021 07/13/2021 07/14/2021 acetaminophen (Tylenol) tablet 1,000 mg (CANCELED) 1,000 mg, Oral, EVERY 8 HOURS SCHEDULED, First dose on Sat07/11/21 at 1630, Until Discontinued, Maximum dose of acetaminophen is 4000 mg from all sources in 24 hours. When ordered for pain, acetaminophen should be given even when other ordered pain medications are indicated. , Routine 0555 (Given - Provider: Shobha Padilla RN)1406 (Given - Provider: Nohemy Ribera LPN)5558 (Given - Provider: Kalie Gomez RN) 0514 (Given - Provider: Georgette Zarate RN) acetaminophen (Tylenol) tablet 1,000 mg 1,000 mg, Oral, EVERY 6 HOURS SCHEDULED, First dose (after last modification) on Sat07/13/21 at 1200, Until Discontinued, Maximum dose of acetaminophen is 4000 mg from all sources in 24 hours. When ordered for pain, acetaminophen should be given even when other ordered pain medications are indicated. , Routine 1229 (Given - Provider: Fabian Koenig Jr., RN)1716 (Given - Provider: Alisha Hawkins, KAMLA)2309 (Given - Provider: Robert Blankenship RN) 0526 (Given - Provider: Robert Blankenship RN)1255 (Given - Provider: Lucretia Samuel RN) ascorbic acid (Vitamin C) (Vitamin C) tablet 500 mg 500 mg, Oral, DAILY, First dose on Sat07/12/21 at 0900, Until Discontinued 08 (Given - Provider: Lucretia Samuel RN) 0847 (Given - Provider: Gloria Zaragoza LPN) 09 (Given - Provider: Lucretia Samuel RN) bisacodyL (Dulcolax) suppository 10 mg 10 mg, Rectal, DAILY, First dose (after last modification) on Sat07/14/21 at 0900, Until Discontinued, Administer if no bowel movement within 48 hours to achieve: (1) One bowel movement at least every 48 hours, AND (2) without straining., Routine 09 (Given - Provider: Lucretia Samuel RN) budesonide-formoteroL (Symbicort) 160-4.5 mcg/actuation inhaler 2 Inhalation 2 Inhalation , Inhalation, 2 TIMES DAILY, First dose on Sat07/13/21 at 2100, Until Discontinued, Routine 2125 (Given - Provider: Robert Blankenship RN) 0930 (Given - Provider: Lucretia Samule RN) buPROPion SR (Wellbutrin SR) tablet 200 mg 200 mg, Oral, DAILY, First dose on Sat07/12/21 at 0900, Until Discontinued, DO NOT CRUSH OR OPEN, Routine 0811 (Given - Provider: Lucretia Samuel RN) 0900 (Given - Provider: Gloria Zaragoza LPN) 0908 (Given - Provider: Lucretia Samuel RN) ceFAZolin (Ancef) 1 g in dextrose 5% 50 mL infusion (COMPLETED) 1 g, Intravenous, EVERY 8 HOURS, 3 doses, First dose on Sat07/11/21 at 1630, Last dose on Sat07/12/21 at 0830, Administer over 30 Minutes, Adjust to 4 hours from intraoperative dose. * Beta-lactam based antibiotics (eg. Ampicillin, Cefazolin, Aztreonam) should be administered within 4 hours of the preceding intraoperative dose. * Vancomycin, Flouroquinolones, Clindamycin, Gentamicin, and Metronidazole should be administered within 8 hours of the preceding intraoperative dose., Recovery (Recovery-Hospital Unit), Indication for (Active or Suspected): Prophylaxis 0555 (New Bag - Provider: Shobha Padilla RN)0625 (Stopped - Provider: Shobha Padilla RN)1412 (New Bag - Provider: Nohemy Ribera LPN)1442 (Stopped - Provider: Lucretia Samuel RN) DULoxetine DR (Cymbalta) capsule 30 mg 30 mg, Oral, DAILY, First dose on Sat07/12/21 at 0900, Until Discontinued, Routine 0812 (Given - Provider: Lucretia Samuel RN) 0900 (Given - Provider: Gloria Zaragoza LPN) 0907 (Given - Provider: Lucretia Samuel RN) lactated ringers infusion (COMPLETED) 750 mL, at 250 mL/hr, Intravenous, ONCE, 1 dose, On Sat07/12/21 at 1730 1656 (New Bag - Provider: Lucretia Samuel RN) lidocaine (Lidoderm) 5% patch 3 patch(Linked Group 1) 3 patch, Transdermal, EVERY 24 HOURS, First dose on Sat07/13/21 at 1030, Until Discontinued, Apply patch(es) for 12 hours, and then remove for 12 hours., Routine 1031 (Patch Applied - Provider: Alisha Hawkins RN) 1050 (Patch Applied - Provider: Lucretia Samuel RN) lidocaine (Lidoderm) topical patch REMOVAL(Linked Group 1) Transdermal, EVERY 24 HOURS, First dose on Sat07/13/21 at 2230, Until Discontinued, Remove lidocaine 5% patch 223 (Patch Removed - Provider: Robert Blankenship RN) lisinopriL (Zestril) tablet 10 mg 10 mg, Oral, DAILY, First dose on Sat07/12/21 at 0900, Until Discontinued, Hold if SBP<115, Routine 0811 (Given - Provider: Lucretia Samuel RN) 0848 (Given - Provider: Gloria Zaragoza LPN) 0907 (Given - Provider: Lucretia Samuel RN) magnesium sulfate 2 g in sterile water 50 mL infusion (COMPLETED) 2 g, Intravenous, ONCE, 1 dose, On Sat07/13/21 at 1600, Administer over 120 Minutes 1715 (New Bag - Provider: Alisha Hawkins, KAMLA)1915 (Stopped - Provider: Robert Blankenship RN) montelukast (Singulair) tablet 10 mg 10 mg, Oral, NIGHTLY, First dose on Sat07/11/21 at 2100, Until Discontinued, Routine 2004 (Given - Provider: Georgette Zarate RN) 2125 (Given - Provider: Robert Blankenship RN) multivitamin with minerals (Thera M) tablet 1 tablet 1 tablet, Oral, DAILY, First dose on Sat07/12/21 at 0900, Until Discontinued, Routine 0810 (Given - Provider: Lucretia Samuel RN) 08 (Given - Provider: Gloria Zaragoza LPN) 09 (Given - Provider: Lucretia Samuel RN) polyethylene glycoL (Miralax) packet 17 g 17 g, Oral, 2 TIMES DAILY, First dose on Sat07/11/21 at 2100, Until Discontinued, Routine 0900 (Not Given - Provider: Lucretia Samuel RN - Reason: Patient/family refused)2003 (Given - Provider: Georgette Zarate RN) 844 (Given - Provider: Gloria Zaragoza LPN)2124 (Given - Provider: Robert Blankenship RN) 09 (Given - Provider: Lucretia Samuel RN) pregabalin (Lyrica) capsule 150 mg 150 mg, Oral, 2 TIMES DAILY, First dose on Sat07/11/21 at 2100, Until Discontinued, Routine 0811 (Given - Provider: Lucretia Samuel RN)2003 (Given - Provider: Georgette Zarate RN) 0848 (Given - Provider: Gloria Zaragoza LPN)2125 (Given - Provider: Robert Blankenship RN) 0907 (Given - Provider: Lucretia Samuel RN) rosuvastatin (Crestor) tablet 10 mg 10 mg, Oral, NIGHTLY, First dose on Sat07/11/21 at 2100, Until Discontinued, Routine 2004 (Given - Provider: Georgette Zarate RN) 2125 (Given - Provider: Robert Blankenship RN) senna-docusate (Pericolace) 8.6-50 mg per tablet 2 tablet 2 tablet, Oral, 2 TIMES DAILY, First dose on Sat07/11/21 at 2100, Until Discontinued, Routine 08 (Given - Provider: Lucretia Samuel RN)2004 (Given - Provider: Georgette Zarate RN) 0845 (Given - Provider: Gloria Zaragoza LPN)2125 (Given - Provider: Robert Blankenship RN) 0908 (Given - Provider: Lucretia Samuel RN) sodium chloride 0.9 % (flush) (BD PosiFlush Normal Saline 0.9) flush 5 mL 5 mL, Intravenous, 2 TIMES DAILY, First dose on Sat07/11/21 at 2100, Until Discontinued, Recovery (Recovery-Hospital Unit), Routine 0817 (Given - Provider: Lucretia Samuel RN)2005 (Given - Provider: Georgette Zarate RN) 0850 (Not Given - Provider: Gloria Zaragoza LPN - Reason: See comment - Comment: Patient currently has LR infusing through PIV.)2125 (Given - Provider: Robert Blankenship RN) 09 (Given - Provider: Lucretia Samuel RN) Continuous Medication Order 07/12/2021 07/13/2021 07/14/2021 lactated ringers infusion (CANCELED) 75 mL/hr, Intravenous, CONTINUOUS, Starting on Sat07/11/21 at 1630, Until Jessie 07/13/21 at 0735, Recovery (Recovery-Hospital Unit) 0556 (New Bag - Provider: Shobha Padilla RN)2235 (New Bag - Provider: Georgette Zarate RN) 1044 (Stopped - Provider: Alisha Hawkins, KAMLA) PRN Medication Order 07/12/2021 07/13/2021 07/14/2021 albuteroL (Proventil) nebulizer solution 2.5 mg 2.5 mg, Nebulization, EVERY 4 HOURS PRN, Starting on Tu07/11/21 at 1602, Until Sat07/14/21 at 1610, Wheezing, Shortness of Breath, Routine benzonatate (Tessalon) capsule 100 mg 100 mg, Oral, 3 TIMES DAILY PRN, Starting on 07/11/21 at 2002, Until Sat07/14/21 at 1610, Cough, DO NOT CRUSH OR OPEN, Routine bisacodyl EC (Dulcolax) tablet 10 mg 10 mg, Oral, 2 TIMES DAILY PRN, Starting on Jessie 07/13/21 at 1505, Until Sat07/14/21 at 1610, Constipation, DO NOT CRUSH OR OPEN Administer if no bowel movement within 48 hours to achieve: (1) One bowel movement at least every 48 hours, AND (2) without straining. If multiple PRN bowel medications ordered, start with polyethylene glycol, then lactulose, then oral bisacodyl, then bisacodyl suppository, then magnesium citrate, then tap water enema. Multiple medications may be given concomitantly for constipation., Routine 0308 (Given - Provider: Robert Blankenship RN) lactulose (Chronulac) (0.67 gram/mL) oral liquid 20 g 20 g, Oral, DAILY PRN, Starting on Jessie 07/13/21 at 1505, Until Sat07/14/21 at 1610, Constipation, Administer if needed per patient's routine or if no bowel movement within 48 hours to achieve: (1) One bowel movement at least every 48 hours, AND (2) Without straining. Start with 30 mL orally. If no bowel movement within 24 hours, increase to 60 mL orally Once Daily PRN. If multiple PRN bowel medications ordered, start with polyethylene glycol, then lactulose, then oral bisacodyl, then bisacodyl suppository, then magnesium citrate, then tap water enema. Multiple medications may be given concomitantly for constipation., Routine 1717 (Given - Provider: Alisha Hawkins, KAMLA) melatonin tablet 6 mg 6 mg, Oral, NIGHTLY PRN, Starting on Sat07/13/21 at 0942, Until Sat07/14/21 at 1610, sleep, Routine ondansetron (pf) (Zofran) (2 mg/mL) injection 4 mg 4 mg, Intravenous, EVERY 8 HOURS PRN, Starting on Sat07/11/21 at 2003, Until Sat07/14/21 at 1610, Nausea, If multiple antiemetics are ordered, use ondansetron first, prochlorperazine second, metoclopramide third. oxyCODONE (Roxicodone) tablet 10 mg (CANCELED) 10 mg, Oral, EVERY 4 HOURS PRN, Starting on Sat07/11/21 at 1602, Until Sat07/13/21 at 1514, Pain, moderate pain (4-6), For moderate pain (4-6). Do not exceed 15 mg in 4 hours. If pain not relieved, call provider., Routine 0603 (See Alternative - Provider: Shobha Padilla RN)105 (See Alternative - Provider: Lucretia Samuel, KAMLA)160 (See Alternative - Provider: Lucretia Samuel, KAMLA)2004 (See Alternative - Provider: Georgette Zarate, KAMLA) 05 (Given - Provider: Georgette Zarate, KAMLA) oxyCODONE (Roxicodone) tablet 10 mg (CANCELED) 10 mg, Oral, EVERY 4 HOURS PRN, Starting on Sat07/13/21 at 1513, Until Sat07/13/21 at 1815, Pain, moderate to severe pain (6-10), If pain not relieved, call provider., Routine 1717 (Given - Provider: Alisha Hawkins, KAMLA) oxyCODONE (Roxicodone) tablet 15 mg (CANCELED) 15 mg, Oral, EVERY 4 HOURS PRN, Starting on Sat07/11/21 at 1602, Until Jessie 07/13/21 at 1514, Pain, severe pain (7-10), For severe pain (7-10). Do not exceed 15 mg in 4 hours. If pain not relieved, call provider., Routine 0603 (See Alternative - Provider: Shobha Padilla RN)105 (See Alternative - Provider: Lucretia Samuel RN)1608 (See Alternative - Provider: Lucretia Samuel RN)2004 (Given - Provider: Georgette Zarate, KAMLA) 513 (See Alternative - Provider: Georgette Zarate, RN) oxyCODONE (Roxicodone) tablet 2.5 mg(Linked Group 2) 2.5 mg, Oral, EVERY 4 HOURS PRN, Starting on Jessie 07/13/21 at 1814, Until Sat07/14/21 at 1610, Pain, mild to moderate pain (1-5) Hold for sedation, If pain not relieved, call provider, Routine 2126 (See Alternative - Provider: Robert Blankenship RN) 525 (See Alternative - Provider: Robert Blankenship RN)0908 (Given - Provider: Lucretia Samuel RN - Comment: pt requested lower dose)131 (See Alternative - Provider: Lucretia Samuel RN) oxyCODONE (Roxicodone) tablet 5 mg (CANCELED) 5 mg, Oral, EVERY 4 HOURS PRN, Starting on Sat07/11/21 at 1602, Until Sat07/13/21 at 1514, Pain, mild pain (1-3), For mild pain (1-3). Do not exceed 15 mg in 4 hours. If pain not relieved, call provider, Routine 06 (Given - Provider: Shobha Padilla RN)105 (Given - Provider: Lucretia Samuel RN)1608 (Given - Provider: Lucretia Samuel RN - Comment: low dose per pt request)2004 (See Alternative - Provider: Georgette Zarate, KAMLA) 513 (See Alternative - Provider: Georgette Zarate, KAMLA) oxyCODONE (Roxicodone) tablet 5 mg(Linked Group 2) 5 mg, Oral, EVERY 4 HOURS PRN, Starting on Jessie 07/13/21 at 1814, Until Sat07/14/21 at 1610, Pain, moderate to severe pain (6-10) Hold for sedation, If pain not relieved, call provider., Routine 2126 (Given - Provider: Robert Blankenship RN) 7791 (Given - Provider: Robert Blankenship RN)0908 (See Alternative - Provider: Lucretia Samuel, RN)1311 (Given - Provider: Lucretia Samuel, KAMLA) sodium chloride 0.9 % (flush) (BD PosiFlush Normal Saline 0.9) flush 5-20 mL 5-20 mL, Intravenous, EVERY 1 MIN PRN, Starting on Sat07/11/21 at 1600, Until Sat07/14/21 at 1610, flush, Flush pertains to all indwelling lines. Flush per protocol found in the job aid using the link provided on this medication record., Recovery (Recovery-Hospital Unit), Routine traZODone (Desyrel) tablet 50 mg 50 mg, Oral, NIGHTLY PRN, Starting on Sat07/11/21 at 2002, Until Sat07/14/21 at 1610, Sleep, Routine Linked Groups Order Group 1: lidocaine (Lidoderm) 5% patch 3 patchJump to med 3 patch, Transdermal, EVERY 24 HOURS, First dose on Sat07/13/21 at 1030, Until Discontinued, Apply patch(es) for 12 hours, and then remove for 12 hours., Routine And lidocaine (Lidoderm) topical patch REMOVALJump to med Transdermal, EVERY 24 HOURS, First dose on Sat07/13/21 at 2230, Until Discontinued, Remove lidocaine 5% patch Group 2: oxyCODONE (Roxicodone) tablet 2.5 mgJump to med 2.5 mg, Oral, EVERY 4 HOURS PRN, Starting on Sat07/13/21 at 1814, Until Sat07/14/21 at 1610, Pain, mild to moderate pain (1-5) Hold for sedation, If pain not relieved, call provider, Routine Or oxyCODONE (Roxicodone) tablet 5 mgJump to med 5 mg, Oral, EVERY 4 HOURS PRN, Starting on Sat07/13/21 at 1814, Until Sat07/14/21 at 1610, Pain, moderate to severe pain (6-10) Hold for sedation, If pain not relieved, call provider., Routine documented in this encounter Care Teams Assembler Corncob Pipes Relationship Specialty Start Date End Date Cb Florence PA [address] [place] [address] PCP - General Family Medicine 04/08/20 documented as of this encounter
--- OUTSIDE RECORDS SUMMARY | 2024-03-17 18:26 | XMS_ITS | Encounter Summary ---
[facility] Organization [facility] [address] Care Team Providers Care Broadcast Operations Director Name Role Phone Cb Florence Primary Care Provider [phone]- [phone] Reason for Visit * Auth/Cert Specialty Diagnoses [...] Expiration Date Visits Re quested Visits Authorized [id number] 1 1 Encounter Details Date Type Department Care Team (Late st Contact Info) Description 07/11/2021 10:15 AM EST - 07/11/2021 3:30 PM EST Surgery [place] [address] Rios Gonzalez MD [facility] [place] [address] ARTHRODESIS, LUMBAR SPINE, SINGLE INTERSPACE (WRVU 23.53) Social History Tobacco Use Types Packs/Day Years [...] Sign Reading Time Taken Comments Blood Pressure 104/78 07/11/2021 3:30 PM EST Pulse 77 07/11/2021 3:30 PM EST Temperature 36.2 ??C (97.2 ??F) 07/11/2021 3:20 PM ES T Respiratory Rate 10 07/11/2021 3:30 PM EST Oxygen Saturation 98% 07/11/2021 3:30 PM EST Inhaled Oxygen Concentration - - Weight 85.7 kg (188 lb 15 oz) 07/11/2021 9:39 AM EST Height - - Body Mass Index 36.49 07/12/2021 12:06 PM EST documented in this encounter Discharge Summaries * Keren Hammond APRN - 07/14/2021 12:36 PM EST Images from the original note were not included. Discharge Summary Patient Name: Poppy Mclaughlin Patient Age: 60 y.o. Language: Vincentian Race: White Ethnicity: Not nor Admit date: 07/11/2021 Discharge date and time: 07/14/2021 Attending Physician: Rios Gonzalez MD Discharge Physician: Rios Gonzalez MD Follow-up Recommendations for Providers: See discharge instructions for additional details. Future Appointments Date Time Provider Department Center 08/10/2021 3:00 PM [facility] DX ROOM 2 MH Xray [facility] Rad 08/10/2021 3:40 PM Rios Gonzalez MD [facility] Pain Sp [facility] Inpatient Provider Contact Information: Rios Gonzalez MD Spine Center: [phone] After hours and weekends, call [facility] Programmer Or Analyst, , and have the Orthopedic resident paged. [...] have questions please contact the health home health care physician that requested your imaging first. Electronically signed by: Bianca Mcdonnell MD, [facility] ([phone]), at 07/11/2021 7:55 PM Pending Studies and Lab Data at Discharge: * No orders in the log * Transfusions: No Discharge Conditions/Prognosis: Stable, awake, and alert. Mobilizing as noted above, pain controlled on oral medications. Discharge to: Home HOME HEALTH CARE AGENCY: [facility] PHONE: [phone] FAX: [phone] Updated Allergies/ADRs: Allergies Allergen Reactions ??? Pneumococcal [...] device Spcr Commonly known as: Joshua Aerosol Meigs Enhancer 2 puffs by [facility].(Non-Drug; Combo Route) route daily. 2 puff Refills: 0 lisinopriL 10 mg Tab Commonly known as: Zestril daily. Refills: 0 loratadine 10 mg Tab Commonly known as: Claritin Take 10 mg by mouth daily. 10 mg Refills: 0 CLASSIC OXYGEN CONCENTRATOR MISC 3 L by [facility].(Non-Drug; Combo Route) route nightly. 3 L Refills: 0 Miscellaneous Medical Supply [facility] Face mask for nocturnal O2, and appropriate accessories. Quantity: 1 each Refills: PRN montelukast 10 mg Tab Commonly known as: Singulair Take 10 mg by mouth nightly. 10 mg Refills: 0 MULTIVITAMIN ORAL Take 2 tablets by mouth daily. 2 tablet Refills: 0 Narcan 4 mg/actuation [place] ADMINISTER A SINGLE SPRAY INTRANASALLY INTO ONE [...] as: NEURONTIN ipratropium 42 mcg (0.06 %) [place] Commonly known as: ATROVENT meloxicam 15 mg [...] them. 3. You should also take an ndnu-ict-asgwkln stool softener of laxative, such as Miriam-colace [...] please contact the Spine Center Prescription Lineat [phone]. PRESCRIPTION RENEWAL REQUESTS CAN TAKE UP TO 3 DAYS TO FILL. YOU WILL BE REQUIRED TO STEAM TURBINE OPERATOR YOUR NARCOTIC REFILL PRESCRIPTION IN PERSON AT [facility] OR IT CAN BE MAILED TO YOUR [...] smoke-free lifestyle. You can also call local [place] or [place] quit lines for additional assistance. [place] Quit Line: 2-476-ZPED-NOW Online at [employer]Bixti.com [place] Quit Line: 5-345-TLPV-NOW Online at quitPressLabs.org PLEASE CALL US AT [phone] TO SPEAK WITH A SPINE CENTER NURSE [...] Numbers: Clinical issues, nurse questions, medication renewals: [phone] Gonzalez: [phone] Evenings after 5pm and weekends you may contact the Orthopaedic resident insurance sales professional: [phone], askthe insulating machine operator to page the Orthopaedic resident Follow Up Appointments: 1. You will have follow-up appointments at [facility] as indicated in the ???Future Appointments and Orders?? section of your discharge summary. If X-rays have been ordered for you prior to this appointment you will need to report to the Radiology department, desk 3T, 1 hour prior to your spine center appointment. Future Appointments Date Time Provider Department Center 08/10/2021 3:00 PM [facility] DX ROOM 2 MH Xray [facility] Rad 08/10/2021 3:40 PM Rios Gonzalez MD [facility] Pain Sp [facility] General Instructions None Future Appointments and Orders Future Appointments and Orders Future Appointments Provider Department Dept Phone 08/10/2021 3:00 PM [facility] DX ROOM 2 XRay at [facility] Arrive at: Operations Supervisor 2Nd Shift Area 3T [phone] Please go to Operations Supervisor 2Nd Shift Area 3T ([place] Location). 08/10/2021 3:40 PM Rios Gonzalez MD Pain and Spine Center at [facility] Arrive at: Operations Supervisor 2Nd Shift Area 3D [phone] Future Orders Complete By Expires Referral to Home Health - at DISCHARGE [[id number] CPT(R)] As directed Process Instructions: Scheduling Instructions: Comments: DOCUMENTATION FOR VNA SERVICES (INCLUDING THOSE PATIENTS WITH MEDICARE COVERAGE REQUIRING HOME VNA SERVICES AND/OR HOSPICE SERVICES) PATIENT'S LOCATION: Poppy Mclaughlin [address] [place] [phone] Cell: Telephone Information: Metal Solderer's Name: self/patient In discussion with the attending physician, it is certified that this patient is under their care and that they, or a Nurse Practitioner,Clinical Nurse specialist or Physician Rail Signal Mechanic who is working directly with them, had [...] x 7 days HOME HEALTH CARE AGENCY: [facility] PHONE: [phone] FAX: [phone] Start of care: 24 to 48 hours [...] Jesus [address] / [place] [address] All A agencies which cover the area of patient's residence have been reviewed, either verbally laila writing, and patient/family have chosen the home health care agency noted Questions: Agency name and contact information: [facility] Patient location post discharge: home What services are requested: Physical Therapy Start date: Responsible MD post discharge contact info: Primary Care Provider: KIARA Jesus [phone] Discharge References/Attachments SMOKING: STOPPING (GREENLANDIC) documented in this encounter Discharge Instructions * Patient Instructions* Keren Hammond APRN - 07/11/2021 4:53 PM EST Activity: 1. [...] them. 3. You should also take an dwkq-pjs-rbxwspw stool softener of laxative, such as Miriam-colace [...] please contact the Spine Center Prescription Lineat [phone]. PRESCRIPTION RENEWAL REQUESTS CAN TAKE UP TO 3 DAYS TO FILL. YOU WILL BE REQUIRED TO STEAM TURBINE OPERATOR YOUR NARCOTIC REFILL PRESCRIPTION IN PERSON AT [facility] OR IT CAN BE MAILED TO YOUR [...] smoke-free lifestyle. You can also call local [place] or [place] quit lines for additional assistance. [place] Quit Line: 6-058-JELJ-NOW Online at [employer].org [place] Quit Line: 6-268-EECS-NOW Online at quitnowPow Health.org PLEASE CALL US AT [phone] TO SPEAK WITH A SPINE CENTER NURSE [...] Numbers: Clinical issues, nurse questions, medication renewals: [phone] Gonzalez: [phone] Evenings after 5pm and weekends you may contact the Orthopaedic resident insurance sales professional: [phone], askthe insulating machine operator to page the Orthopaedic resident Follow Up Appointments: 1. You will have follow-up appointments at [facility] as indicated in the ???Future Appointments and Orders?? section of your discharge summary. If X-rays have been ordered for you prior to this appointment you will need to report to the Radiology department, desk 3T, 1 hour prior to your spine center appointment. Future Appointments Date Time Provider Department Center 08/10/2021 3:00 PM [facility] DX ROOM 2 MH Xray [facility] Rad 08/10/2021 3:40 PM Rios Gonzalez MD [facility] Pain Sp [facility] * Attachments The following attachments cannot be sent through Care Everywhere. * SMOKING: STOPPING (GREENLANDIC) documented in this encounter Medications at Time of Discharge Medication Sig Dispensed Refills Start Date End Date acetaminophen (Tylenol) 500 mg Tablet Take 2 tablets by mouth every 6 hours. 0 07/14/[address] (Cymbalta) 30 mg Capsule, Delayed Release(E.C.) TAKE 1 CAPSULE BY MOUTH ONCE DAILY 03/17/2021 Narcan 4 mg/actuation [place], Non-Aerosol ADMINISTER A SINGLE SPRAY INTRANASALLY INTO [...] 2 times daily. 05/02/2016 OXYGEN-AIR DELIVERY SYSTEMS (MC CLASSIC OXYGEN CONCENTRATOR MISC) 3 L by Mis.(Non-Drug; Combo Route) route nightly. diphenoxylate-atropin e (LOMOTIL) 2.5-0.025 mg Tablet Take 1 tablet by mouth 4 times daily. DO NOT restarted this unless you are having diarrhea. 120 tablet 7 06/11/2014 albuterol (PROVENTIL HFA;VENTOLIN HFA) 90 mcg/actuation HFA Aerosol Inhaler Inhale 2 puffs into the lungs every 4 hours as needed. Use with spacer Inhalational Spacing Device Spcr 2 puffs by Misc.(Non-Drug; Combo Route) route daily. promethazine (PHENERGAN) 25 [...] Time Provider Department Center 08/10/2021 3:00 PM [facility] DX ROOM 2 Xray [facility] Rad 08/10/2021 3:40 PM Rios Gonzalez MD [facility] Pain Sp [facility] Spine Attending I have seen and examined [...] assitance with ADL's Surveillance [continuous indirect monitoring]: Jimmyimo, Purposeful Rounding, Nurse Knowledge Exchange at Bedside, Bed Alarm Set * Jonna Herzog OTA - 07/13/2021 3:11 PM EST Occupational Therapy Treatment #2 Patient profile: oPppy Mclaughlin is a 60 y.o. R handed [...] STRUCTUAL performed by Rios Gonzalez MD at [facility] MAIN OR ??? PRO ANTERIOR INSTRUMENTATION 2-3 VERTEBRAL SEGMENTS 09/08/2013 @ANT. SPINAL INSTRUMENTATION, 2-3 VERTEBRA, SEGMENTED performed by Rios Gonzalez MD at [facility] AGAPITO ??? PRO ARTHRD ANT INTERDY CERVCL BELW C2 EA ADDL NTRSPC 09/08/2013 @ARTHRODESIS ANT INTERBDY CERVCL BELOW C2 EA ADDL INTRSPACE performed by Rios Gonzalez MD at [facility] MAIN OR ??? PRO ARTHRODESIS, ANT INTERBODY,DECOMPRESSION; CERVICAL BELOW C2 09/08/2013 ARTHRODESIS, ANT INTERBODY,DECOMPRESSION; CERVICAL BELOW C2 performed by Rios Gonzalez MD at [facility] MAIN OR ??? PRO AUTOGRAFT SPINE SURGERY MORSELIZED SEP INCISION Bilateral 07/11/2021 AUTOGRAFT FOR SPINE SURGERY ONLY; MORSELIZED (THROUGH SEPARATE SKIN OR FASCIAL INCISION) (WRVU 2.79) performed by Rios Gonzalez MD at [facility] MAIN OR ??? PRO DECOMPRESS SPINAL CORD, 1 SEG Right 08/31/2014 TRANSPEDICULAR LUMBAR DECOMPRESSION SPINAL CORD,EQUINA & NERVE ROOTS, ONE LVL. performed by Rios Gonzalez MD at [facility] MAIN OR ??? PRO DECOMPRESS SPINAL CORD, 1 SEG N/A 07/11/2021 TRANSPEDICULAR LUMBAR DECOMPRESSION SPINAL CORD,EQUINA & NERVE ROOTS, ONE LVL. (WRVU 21.86) performed by Rios Gonzalez MD at [facility] MAIN OR ??? PRO LAMINEC/FACETECT/FORAMIN, EACH ADDNL Bilateral 07/11/2021 ADD'L INTERSPACES CX., THORACIC, LUMBAR (WRVU 3.47) performed by Rios Gonzalez MD at [facility] MAIN OR ??? PRO LAMINEC/FACETECT/FORAMIN, LUMBAR 1 SEG N/A 07/11/2021 LAMINECTOMY, FACETECTOMY & FORAMINOTOMY,LUMBAR, ONE LEVEL (WRVU 15.37) performed by Rios Gonzalez MD at [facility] MAIN OR ??? PRO LAP, CHOLECYSTECTOMY/GRAPH 11/04/2012 LAPAROSCOPIC CHOLECYSTECTOMY WITH CHOLANGIOGRAM performed by Abel Carlton MD at [facility] MAIN OR ??? PRO LUMBAR SPINE FUSN, POST TECH Bilateral 07/11/2021 ARTHRODESIS, LUMBAR SPINE, SINGLE LEVEL (WRVU 23.53) performed by Rios Gonzalez MD at [facility] MAIN OR ??? PRO POSTERIOR SEGMENTAL INSTRUMENTATION 3-6 VRT SEG Bilateral 07/11/2021 POST SPINAL INSTRUMENTATION, 3-6 VERTEBRA, NON SEGMENTAL (WRVU 12.56) performed by Rios Gonzalez MD at [facility] MAIN OR ??? PRO SPINE FUSN, POST TECH, EA ADDNL SGMT Bilateral 07/11/2021 ARTHRODESIS, POSTERIOR VERTEBRAL EA.ADD. SEGMENT (WRVU 6.43) performed by Rios Gonzalez MD at [facility] MAIN OR ??? PRO UPPER GI ENDOSCOPY, BIOPSY N/A 10/26/2015 UPPER GASTROINTESTINAL ENDOSCOPY,WITH BIOPSY SINGLE OR MULTIPLE performed by Apolinar Sepulveda MDat [facility] ENDOSCOPY ??? PRO UPPER GI ENDOSCOPY, DIAGNOSTIC N/A 10/26/2015 EGD, UPPER GI ENDOSCOPY performed by Apolinar Sepulveda MD at [facility] ENDOSCOPY ??? PRO UPPER GI ENDOSCOPY, DIAGNOSTIC N/A 10/02/2016 EGD, UPPER GI ENDOSCOPY performed by Justin Starkey MD at [facility] ENDOSCOPY ??? PRO UPPER GI ENDOSCOPY, W/DIR SUBMUC INJ 11/05/2017 EGD, W DIRECTED SUBMUCOSAL INJECTION(S) performed by Osmany Keller MD at [facility] ENDOSCOPY Social History: Patient lives w/ her [...] to obtain shower chair for home from [employer] and work with home OT on showering [...] Management, Balance, Recommendations and Discharge planning. Pager: [phone] JUSTIN ESPINO 07/13/2021 Occupational Therapy Rehabilitation Department * Monica Rivera RN - 07/13/2021 12:51 PM EST Phone call to [facility] re patient's home oxygen set up. Spoke to Jaclyn Nassar [phone] clarified that patient has portable oxygen concentrator at home and it has battery back up. Update to patient. Phone call from Mitch with [facility] informing that patient's front wheel walker will not be covered by medicare since patient purchased 4 wheel walker less than 5 years ago.Update to patient andspouse; spouse informed that he opts to purchase FWW at [facility], informed that patient will need FWW for anticipated discharge tomorrow. * Malgorzata Fish PT - 07/13/2021 10:55 AM EST Physical [...] the following: Pain: Number Location At rest 7/10 Lower back Vital Signs: At Rest With [...] plan as stated. Time IN / OUT: 0661-7299 Total Minutes, Physical Therapy: 30 Billing Code: 1 gait training, 1 therapeutic activity Malgorzata Fish PT Pager: [phone] Physical Therapy Inpatient Rehabilitation Department * Rios [...] Time Provider Department Center 08/10/2021 3:00 PM [facility] DX ROOM 2 MH Xray [facility] Rad 08/10/2021 3:40 PM Rios Gonzalez MD [facility] Pain Sp [facility] Spine Attending I have seen and examined [...] referrals are placed. Patient requests referral to [facility] PHONE: [phone] FAX: [phone] Ortho Care Located @ [facility] [place], [place] Equipment needed: Front wheel walker Expected date of discharge: 07/13/2021 Referral routed to the Retort Operator for matching with agency/vendor and to [...] STRUCTUAL performed by Rios Gonzalez MD at [facility] MAIN OR ??? PRO ANTERIOR INSTRUMENTATION 2-3 VERTEBRAL SEGMENTS 09/08/2013 @ANT. SPINAL INSTRUMENTATION, 2-3 VERTEBRA, SEGMENTED performed by Rios Gonzalez MD at [facility] [place] ??? PRO ARTHRD ANT INTERDY CERVCL BELW C2 EA ADDL NTRSPC 09/08/2013 @ARTHRODESIS ANT INTERBDY CERVCL BELOW C2 EA ADDL INTRSPACE performed by Rios Gonzalez MD at [facility] MAIN OR ??? PRO ARTHRODESIS, ANT INTERBODY,DECOMPRESSION; CERVICAL BELOW C2 09/08/2013 ARTHRODESIS, ANT INTERBODY,DECOMPRESSION; CERVICAL BELOW C2 performed by Rios Gonzalez MD at [facility] MAIN OR ??? PRO AUTOGRAFT SPINE SURGERY MORSELIZED SEP INCISION Bilateral 07/11/2021 AUTOGRAFT FOR SPINE SURGERY ONLY; MORSELIZED (THROUGH SEPARATE SKIN OR FASCIAL INCISION) (WRVU 2.79) performed by Rios Gonzalez MD at [facility] MAIN OR ??? PRO DECOMPRESS SPINAL CORD, 1 SEG Right 08/31/2014 TRANSPEDICULAR LUMBAR DECOMPRESSION SPINAL CORD,EQUINA & NERVE ROOTS, ONE LVL. performed by Rios Gonzalez MD at [facility] MAIN OR ??? PRO DECOMPRESS SPINAL CORD, 1 SEG N/A 07/11/2021 TRANSPEDICULAR LUMBAR DECOMPRESSION SPINAL CORD,EQUINA & NERVE ROOTS, ONE LVL. (WRVU 21.86) performed by Rios Gonzalez MD at [facility] MAIN OR ??? PRO LAMINEC/FACETECT/FORAMIN, EACH ADDNL Bilateral 07/11/2021 ADD'L INTERSPACES CX., THORACIC, LUMBAR (WRVU 3.47) performed by Rios Gonzalez MD at [facility] MAIN OR ??? PRO LAMINEC/FACETECT/FORAMIN, LUMBAR 1 SEG N/A 07/11/2021 LAMINECTOMY, FACETECTOMY & FORAMINOTOMY,LUMBAR, ONE LEVEL (WRVU 15.37) performed by Rios Gonzalez MD at [facility] MAIN OR ??? PRO LAP, CHOLECYSTECTOMY/GRAPH 11/04/2012 LAPAROSCOPIC CHOLECYSTECTOMY WITH CHOLANGIOGRAM performed by Abel Carlton MD at [facility] OR ??? PRO LUMBAR SPINE FUSN, POST TECH Bilateral 07/11/2021 ARTHRODESIS, LUMBAR SPINE, SINGLE LEVEL (WRVU 23.53) performed by Rios Gonzalez MD at [facility] MAIN OR ??? PRO POSTERIOR SEGMENTAL INSTRUMENTATION 3-6 VRT SEG Bilateral 07/11/2021 POST SPINAL INSTRUMENTATION, 3-6 VERTEBRA, NON SEGMENTAL (WRVU 12.56) performed by Rios Gonzalez MD at [facility] MAIN OR ??? PRO SPINE FUSN, POST TECH, EA ADDNL SGMT Bilateral 07/11/2021 ARTHRODESIS, POSTERIOR VERTEBRAL EA.ADD. SEGMENT (WRVU 6.43) performed by Rios Gonzalez MD at [facility] MAIN OR ??? PRO UPPER GI ENDOSCOPY, BIOPSY N/A 10/26/2015 UPPER GASTROINTESTINAL ENDOSCOPY,WITH BIOPSY SINGLE OR MULTIPLE performed by Apolinar Sepulveda MDat [facility] ENDOSCOPY ??? PRO UPPER GI ENDOSCOPY, DIAGNOSTIC N/A 10/26/2015 EGD, UPPER GI ENDOSCOPY performed by Apolinar Sepulveda MD at [facility] ENDOSCOPY ??? PRO UPPER GI ENDOSCOPY, DIAGNOSTIC N/A 10/02/2016 EGD, UPPER GI ENDOSCOPY performed by Justin Starkey MD at [facility] ENDOSCOPY ??? PRO UPPER GI ENDOSCOPY, W/DIR SUBMUC INJ 11/05/2017 EGD, W DIRECTED SUBMUCOSAL INJECTION(S) performed by Osmany Keller MD at [facility] ENDOSCOPY Active Non-Hospital Problems Diagnosis ??? Spondylolisthesis [...] outlinedin this evaluation. Time IN / OUT: 8815-3778 Total Minutes, Physical Therapy: 43 Malgorzata Fish PT Pager: [phone] Physical Therapy Inpatient Rehabilitation Department * Samuel Beverly, OT - 07/12/2021 9:30 AM EST Occupational [...] STRUCTUAL performed by Rios Gonzalez MD at [facility] MAIN OR ??? PRO ANTERIOR INSTRUMENTATION 2-3 VERTEBRAL SEGMENTS 09/08/2013 @ANT. SPINAL INSTRUMENTATION, 2-3 VERTEBRA, SEGMENTED performed by Rios Gonzalez MD at [facility] [place] ??? PRO ARTHRD ANT INTERDY CERVCL BELW C2 EA ADDL NTRSPC 09/08/2013 @ARTHRODESIS ANT INTERBDY CERVCL BELOW C2 EA ADDL INTRSPACE performed by Rios Gonzalez MD at [facility] MAIN OR ??? PRO ARTHRODESIS, ANT INTERBODY,DECOMPRESSION; CERVICAL BELOW C2 09/08/2013 ARTHRODESIS, ANT INTERBODY,DECOMPRESSION; CERVICAL BELOW C2 performed by Rios Gonzalez MD at [facility] MAIN OR ??? PRO AUTOGRAFT SPINE SURGERY MORSELIZED SEP INCISION Bilateral 07/11/2021 AUTOGRAFT FOR SPINE SURGERY ONLY; MORSELIZED (THROUGH SEPARATE SKIN OR FASCIAL INCISION) (WRVU 2.79) performed by Rios Gonzalez MD at [facility] MAIN OR ??? PRO DECOMPRESS SPINAL CORD, 1 SEG Right 08/31/2014 TRANSPEDICULAR LUMBAR DECOMPRESSION SPINAL CORD,EQUINA & NERVE ROOTS, ONE LVL. performed by Rios Gonzalez MD at [facility] MAIN OR ??? PRO DECOMPRESS SPINAL CORD, 1 SEG N/A 07/11/2021 TRANSPEDICULAR LUMBAR DECOMPRESSION SPINAL CORD,EQUINA & NERVE ROOTS, ONE LVL. (WRVU 21.86) performed by Rios Gonzalez MD at [facility] MAIN OR ??? PRO LAMINEC/FACETECT/FORAMIN, EACH ADDNL Bilateral 07/11/2021 ADD'L INTERSPACES CX., THORACIC, LUMBAR (WRVU 3.47) performed by Rios Gonzalez MD at [facility] MAIN OR ??? PRO LAMINEC/FACETECT/FORAMIN, LUMBAR 1 SEG N/A 07/11/2021 LAMINECTOMY, FACETECTOMY & FORAMINOTOMY,LUMBAR, ONE LEVEL (WRVU 15.37) performed by Rios Gonzalez MD at [facility] MAIN OR ??? PRO LAP, CHOLECYSTECTOMY/GRAPH 11/04/2012 LAPAROSCOPIC CHOLECYSTECTOMY WITH CHOLANGIOGRAM performed by Abel Carlton MD at [facility] OR ??? PRO LUMBAR SPINE FUSN, POST TECH Bilateral 07/11/2021 ARTHRODESIS, LUMBAR SPINE, SINGLE LEVEL (WRVU 23.53) performed by Rios Gonzalez MD at [facility] MAIN OR ??? PRO POSTERIOR SEGMENTAL INSTRUMENTATION 3-6 VRT SEG Bilateral 07/11/2021 POST SPINAL INSTRUMENTATION, 3-6 VERTEBRA, NON SEGMENTAL (WRVU 12.56) performed by Rios Gonzalez MD at [facility] OR ??? PRO SPINE FUSN, POST TECH, EA ADDNL SGMT Bilateral 07/11/2021 ARTHRODESIS, POSTERIOR VERTEBRAL EA.ADD. SEGMENT (WRVU 6.43) performed by Rios Gonzalez MD at [facility] MAIN OR ??? PRO UPPER GI ENDOSCOPY, BIOPSY N/A 10/26/2015 UPPER GASTROINTESTINAL ENDOSCOPY,WITH BIOPSY SINGLE OR MULTIPLE performed by Apolinar [facility]ulveda MDat [facility] ENDOSCOPY ??? PRO UPPER GI ENDOSCOPY, DIAGNOSTIC N/A 10/26/2015 EGD, UPPER GI ENDOSCOPY performed by Apolinar Sepulveda MD at [facility] ENDOSCOPY ??? PRO UPPER GI ENDOSCOPY, DIAGNOSTIC N/A 10/02/2016 EGD, UPPER GI ENDOSCOPY performed by Justin Starkey MD at [facility] ENDOSCOPY ??? PRO UPPER GI ENDOSCOPY, W/DIR SUBMUC INJ 11/05/2017 EGD, W DIRECTED SUBMUCOSAL INJECTION(S) performed by Osmany Keller MD at [facility] ENDOSCOPY Social History: Patient lives w/ her [...] and measurable assessment of functional outcome. Pager: [phone] Samuel Beverly OT 07/12/2021 Occupational Therapy Rehabilitation [...] Time Provider Department Center 08/10/2021 3:00 PM [facility] DX ROOM 2 Xray [facility] Rad 08/10/2021 3:40 PM Rios Gonzalez MD [facility] Pain Sp [facility] Spine Attending I have seen and examined [...] Time Provider Department Center 08/10/2021 3:00 PM [facility] DX ROOM 2 MH Xray [facility] Rad 08/10/2021 3:40 PM Rios Gonzalez MD [facility] Pain Sp [facility] * Mahnaz Grijalva RN - 07/11/2021 5:57 [...] [place] on . Pt will go to ay on way to her room. documented in this encounter H&P Notes * Rios Gonzalez MD - 07/11/2021 9:30 AM EST 24-Hour Pre-Operative H&P Update Poppy Del Cid Arnoldo 1960 [id number] Patient seen in pre-op holding area today. [...] reviewed with her. Yasmani Chaudhry, MSN, RN, [facility] Tobacco Entry Level Sales Associate [facility] Pager #[phone] * Initial Assessments - Monica Rivera RN [...] COVID test: Lab Results Component Value Date [id number] Not Detected 07/11/2021 Past medical History: Past [...] Manuel would be surrogate decision maker per [place] surrogate decision making law. (Only good for [...] 4 wheel walker) Home Address confirmed as: [address] [address] Social & Family Supports: All names listed below confirmed with patient as current and correct Extended Emergency Contact Information Primary Emergency Contact: José Manuel Mclaughlin [address] [place] [address] [facility] [place] Relation: Spouse Secondary Emergency Contact: [place] [address] [facility] Relation: Child Mother: CamposLety [facility] Current Care Provided by: self Provides Primary [...] Information: Patient uses home O2 at night, 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 Has concentrator at home, no portables. Health/Prescription Coverage: Primary Insurance: MEDICARE Payor: MEDICARE / Plan: MEDICARE PART A & B / Product Type: *No Product type* / Secondary Insurance: Prescription Coverage: Yes Preferred Pharmacy: [facility] [address] [place] [id number] [facility] - [place], [place] - [facility] [address] Status: Patient is a : No Primary Care Provider: KIARA Jesus [phone] Patient/Caregiver Goals of Treatment: recovery post surgery Potential Needs for Transition of Care: none Agency Referrals: referral in place to [facility] Transportation: no concerns Transportation Anticipated: family [...] planning. Office of Care Management Surgery Team Entry Level Manufacturing Engineer [email or web address] [email or web address] Pager #[phone] * Plan of Care - Georgette Zarate RN - 07/13/2021 2:24 AM EST OUTCOME EVALUATION NOTE: OUTCOME SUMMARY: A&Ox4, VSS on 2L NC, pain well controlled with medication (See MAR). Dressing over incision CDI, BAUDILIO having moderate serosanguineous output. Neurovascular checks remain unchanged, denies any numbness or tingling. Patient voiding frequently without difficulty, ambulating to [facility] x1 with FWW. Resting well in between care. PLAN MOVING FORWARD: Pain control Mobilize IV fluids INDIVIDUALIZED FALL PREVENTION INTERVENTIONS: Patient-specific fall risk factors per assessment: [current deficits]: Pain, medication, hospital environment, recent procedure. Assistance [level of assistance required for transfers and ambulation]: X1 with FWW Supervision [direct monitoring required during toileting and ADLs]: Hands on Surveillance [continuous indirect monitoring]: Rosao, NKE, purposeful rounding, Room close to nurses station, [...] on with ADL's Surveillance [continuous indirect monitoring]: Lynn, Annyful Rounding, Nurse Knowledge Exchange at Bedside, Bed Alarm Set * Brief Op Note - Rios Gonzalez MD - 07/11/2021 2:54 PM EST Brief Operative Note Patient Name: Poppy Mclaughlin : [id number] MR#: [id number] Case Date: 07/11/2021 Surgeon: Surgeon(s) and Role: [...] fusion with right iliac crest bone graft (12279, 02380, 87476, 02587, 84305, 31146, 18342) Anesthesia: General Findings: There was severe foraminal [...] Gonzalez MD - 07/11/2021 11:03 AM EST [facility] Operative Note Patient Name: Poppy Mclaughlin : [id number] MR#: [id number] Case Date: 07/11/2021 Surgeon: Surgeon(s) and Role: [...] confirm bone on all aspects of the aeroplane pilot hole. The sacral ala or transverse [...] PM EST Laminec/Facetect/Forami n, Lumbar 1 Seg ([id number]) 07/11/2021 10:21 AM EST Spondylolisthesis of lumbar region Decompress Spinal Cord, 1 Seg (62574) 07/11/2021 10:21 AM EST Spondylolisthesis of lumbar region MODIFIER L5 07/11/2021 10:21 AM EST Spondylolisthesis of lumbar region MODIFIER L4 07/11/2021 10:21 AM EST Spondylolisthesis of lumbar region MODIFIER GLOBUS CREO 07/11/2021 10:21 AM EST Spondylolisthesis of lumbar region Autograft Spine Surgery Morselized Sep Incision ([id number]) 07/11/2021 10:21 AM EST Spondylolisthesis of lumbar region Posterior Segmental Instrumentation 3-6 Vrt Seg ([id number]) 07/11/2021 10:21 AM EST Spondylolisthesis of lumbar region Guevara Facetectomy&Foramot 1 Vrt Sgm Ea Addl Sgm ([id number]) 07/11/2021 10:21 AM EST Spondylolisthesis of lumbar region Arthrodesis Posterior/Pstlat Technique 1 Interspace Lumbar, Ea Add'L Interspace ([id number]) 07/11/2021 10:21 AM EST Spondylolisthesis of lumbar region Arthrodesis Posterior/Pstlat Technique 1 Interspace Lumbar ([id number]) 07/11/2021 10:21 AM EST Spondylolisthesis of lumbar region RAPID COVID-19 PCR ([facility]) Routine 07/11/2021 10:16 AM EST ADD'L INTERSPACES [...] AM EST) Lavender Hold Sample in lab. [facility] Blood Venous Draw / Unknown 07/14/2021 11:33 AM EST 07/14/2021 12:16 PM EST Jane León CARD PROCESSING CLERK HEMATOLOGY ORDERABL ES Performing Organization Address City/[facility]/ZIP Co de Phone Number [facility] [place] [address] * Magnesium (07/14/2021 11:33 AM EST) Magnesium 0.87 0.69 - 1.07 mmol/L [facility] Blood 07/14/2021 11:3 3 AM EST 07/14/2021 12:15 PM EST Narrative Resulting Agency Comment Spec In Lab Jane León CARD PROCESSING CLERK CHEMISTRY ORDERABLE S [facility] [place] [address] * Basic Metabolic Panel (non-fasting) (07/14/2021 11:33 AM EST) Glucose 115 65 - 199 mg/dL [facility] Comment:Diabetes: >=200 mg/d L plus symptoms Blood Urea Nitrogen 16 8 - 18 mg/dL [facility] Creatinine 0.96 0.70 - 1.20 mg/dL [facility] Sodium 137 135 - 145 mmol/L [facility] Potassium 4.4 3.5 - 5.0 mmol/L [facility] Comment: Please note: ??Patients with WBC >100,000 may have falsely elevated Potassium levels. ??For accurate Potassium quantification in these patients send serum separator tube (gold top) for subsequent determinations. ??Contact the Clinical Chemistry Laboratory if there are any questions. Chloride 99 98 - 107 mmol/L [facility] Carbon Dioxide 27 22 - 31 mmol/L [facility] Anion Gap 11 5 - 15 mmol/L [facility] Calcium 9.8 8.5 - 10.5 mg/dL [facility] Est Glomerular Filtration Rate 65 >=60 mL/min/1. 73 m?? [facility] Comment: This patient? s estimated [...] Lab Jane León APRN CHEMISTRY ORDERABLE S [facility] [place] [address] * (ABNORMAL) Magnesium (07/13/2021 9:26 AM EST) Magnesium 0.65(L) 0.69 - 1.07 mmol/L [facility] Blood 07/13/2021 9:26 AM EST 07/13/2021 9:53 AM EST Narrative Resulting Agency Comment Spec In Lab Jane León APRN CHEMISTRY ORDERABLE S [facility] [place] [address] * (ABNORMAL) Basic Metabolic Panel (non-fasting) (07/13/2021 9:26 AM EST) Glucose 146 65 - 199 mg/dL [facility] Comment:Diabetes: >=200 mg/d L plus symptoms Blood Urea Nitrogen 20(H) 8 - 18 mg/dL [facility] Creatinine 1.11 0.70 - 1.20 mg/dL [facility] Sodium 137 135 - 145 mmol/L [facility] Potassium 4.1 3.5 - 5.0 mmol/L [facility] Comment: Please note: ??Patients with WBC >100,000 may have falsely elevated Potassium levels. ??For accurate Potassium quantification in these patients send serum separator tube (gold top) for subsequent determinations. ??Contact the Clinical Chemistry Laboratory if there are any questions. Chloride 102 98 - 107 mmol/L [facility] Carbon Dioxide 26 22 - 31 mmol/L [facility] Anion Gap 9 5 - 15 mmol/L [facility] Calcium 9.0 8.5 - 10.5 mg/dL [facility] Est Glomerular Filtration Rate 55(L) >=60 mL/min/1. 73 m?? [facility] Comment: This patient? s estimated [...] APRN CHEMISTRY ORDERABLE S Performing Organization Address City/State/[facility] Co de Phone Number [facility] [place] [address] * (ABNORMAL) Differential, Automated (07/12/2021 2:20 AM EST) Neutrophil % 83.4 % [facility] Neutrophil Absolute 11.61(H) 1.70 - 6.10 x10(3)/mc L [facility] Lymph % 10.9 % [facility] Lymphocytes Abs 1.5 0.9 - 3.2 x10(3)/mc L [facility] Monocyte % 5.2 % [facility] Monocyte Abs 0.7 0.3 - 0.9 x10(3)/mc L [facility] Eos % 0.0 % [facility] Eosinophils Abs 0.0 0.0 - 0.4 x10(3)/mc L [facility] Basophil % 0.1 % [facility] Baso Absolute 0.0 0.0 - 0.1 x10(3)/mc L [facility] Immature Gran % 0.40 % [facility] Comment: Immature granulocytes(IG's)percentage and absolute count will include metamyelocytes, myelocytes, and promyelocytes. Blood smears from CBCs yielding IG's will be scanned manually for concordance. If this scan disagrees with the automated IG or if promyelocytes are noted, a manual differential will be performed. Immature Gran Absolute 0.05(H) 0.00 - 0.04 x10(3)/ L [facility] Blood 07/12/2021 2:20 AM EST 07/12/2021 2:34 AM EST Narrative Resulting Agency Comment Spec In Lab Demetris Blakely MD HEMATOLOGY ORDERABLE S [facility] [place] [address] * (ABNORMAL) Hemogram (07/12/2021 2:20 AM EST) White Blood Cell 13.9(H) 4.0 - 9.5 x10(3)/ L [facility] Red Blood Cell 3.42(L) 4.00 - 5.21 x10(6)/[facility] Hemoglobin 10.2(L) 11.7 - 15.5 g/dL [facility] Hematocrit 32.2(L) 35.7 - 45.8 % [facility] Mean Cell Volume 94.2 82.6 - 94.4 [facility] Mean Cell Hemoglobin 29.8 27.1 - 32.0 pg [facility] Mean Cell Hemoglobin Concentration 31.7 31.7 - 35.0 g/dL [facility] Platelet 168 145 - 357 x10(3)/ L [facility] RDW Standard Deviation 47.3(H) 37.0 - 46.0 [facility] RDW coefficient of variation 13.7 11.5 - 14.1 % [facility] Mean Platelet Volume 11.6 7.6 - 12.9 [facility] NRBC% auto 0.0 % [facility] NRBC Absolute 0.000 0.000 - 0.000 x10(3)/ L [facility] Blood 07/12/2021 2:20 AM EST 07/12/2021 2:34 AM EST Narrative Resulting Agency Comment Spec In Lab Demetris Blakely MD HEMATOLOGY ORDERABLE S [facility] [place] [address] * (ABNORMAL) Basic Metabolic Panel (non-fasting) (07/12/2021 2:20 AM EST) Glucose 150 65 - 199 mg/dL [facility] Comment:Diabetes: >=200 mg/d L plus symptoms Blood Urea Nitrogen 17 8 - 18 mg/dL [facility] Creatinine 1.12 0.70 - 1.20 mg/dL [facility] Sodium 140 135 - 145 mmol/L [facility] Potassium 4.8 3.5 - 5.0 mmol/L [facility] Comment: Please note: ??Patients with WBC >100,000 may have falsely elevated Potassium levels. ??For accurate Potassium quantification in these patients send serum separator tube (gold top) for subsequent determinations. ??Contact the Clinical Chemistry Laboratory if there are any questions. Chloride 105 98 - 107 mmol/L [facility] Carbon Dioxide 25 22 - 31 mmol/L [facility] Anion Gap 10 5 - 15 mmol/L [facility] Calcium 8.6 8.5 - 10.5 mg/dL [facility] Comment:result rechecked-ng Est Glomerular Filtration Rate 54(L) >=60 mL/min/1. 73 m?? [facility] Comment: This patient? s estimated [...] In Lab Rios Gonzalez MD CHEMISTRY ORDERABLES [facility] [place] [address] * XR Lumbar Spine 2 Or 3 [...] have questions please contact the health home health care physician that requested your imaging first. ? Electronically signed by: Bianca Mcdonnell MD, [facility] ([phone]), at 07/11/2021 7:55 PM Narrative 07/11/2021 7:55 [...] who have questions please contactthe health home health care physician that requested your imaging first. Rios Gonzalez MD IMG DX ORDERABLES * XR Fluoro No Rad <1Hr - OR Use (07/11/2021 2:33 PM EST) Narrative Dicom, Auditing User - 07/11/2021 2:34 PM EST This exam is auto-finalizing. No interpretation was done. Rios Gonzalez MD IMG FLUORO ORDERABLE S * COVID-19 PCR (07/11/2021 10:16 AM EST) SARS-CoV-2 RNA (Rapid) Not Detected Not Detected [facility] Comment: This result should be [...] using the Simplexa COVID-19 Direct Assay by [employer] as authorized by the FDA issued Emergency [...] Department of Pathology and Laboratory Medicine at [facility], certified under the Clinical Laboratory Improvement Amendments [...] fact sheets at the following FDA website: https://www.fda.gov/medical-devices/nibzlufotzu-jrqfbms-4444-vzpjd-60-upzzrhbul- use-a zoamphbajxgfo-wixtmuy-hokxitv/sgfnc-ytyvvvqbdwm-kzty SARS-CoV-2 Source TERRESTRIAL ECOLOGIST Swab [facility] Nasopharyngeal Swab 07/11/20 10:16 AM EST 07/11/2021 11:24 AM EST Comment:Symptoms->Surveillan ce Narrative Resulting Agency Comment Spec In Lab Sanaz Coffey CRNA MICROBIOLOGY - GENER AL ORDERABLES [facility] [place] [address] documented in this encounter Visit Diagnoses Diagnosis s/p Right L4-5 hemilaminectomy and L4-S1 instrumented fusion on 07/11/21 (Dr. Gonzalez)- Primary Arthrodesis status Spondylolisthesis of lumbar region Acquired spondylolisthesis Spondylolisthesis of lumbar region Acquired spondylolisthesis documented in this encounter Admitting Diagnoses Diagnosis [...] Given 07/13/2021 9:26 PM EST 2 Inhalation BUpivacaine (pf) (Marcaine) (2.5 mg/mL) 0.25% injection ONCE PRN, Starting on Sat07/11/21 at 1505, Until Sat07/14/21 at 1610, Intra-Operative (Intra-Procedure), Routine Given 07/11/2021 3:05 PM EST 30 mLs 19- Surgical Site buPROPion SR (Wellbutrin SR) tablet 200 mg 200 mg, Oral, DAILY, First dose on Sat07/12/21 at 0900, Until Discontinued, DO NOT CRUSH OR OPEN, Routine Given 07/14/2021 9:08 AM EST 200 mg Given 07/13/2021 9:00 AM EST 200 mg Given 07/12/2021 8:11 AM EST [address] (Cymbalta) capsule 30 mg 30 mg, Oral, DAILY, First dose on Sat07/12/21 at 0900, Until Discontinued, Routine Given 07/14/2021 9:07 AM EST 30 mg Given 07/13/2021 9:00 AM EST 30 mg Given 07/12/2021 8:12 AM EST 30 mg gelatin adsorbable 100 (Gelfoam) sponge ONCE PRN, Starting on Sat07/11/21 at 1207, Until Sat07/14/21 at 1610, Intra-Operative (Intra-Procedure), Routine Given 07/11/2021 12:07 PM EST 1 each 19- Surgical Site lactulose (Chronulac) (0.67 gram/mL) oral liquid 20 [...] Given 07/12/2021 8:11 AM EST 10 mg melatonin tablet 6 mg 6 mg, Oral, [...] AM EST 1 tablet oxyCODONE (Roxicodone) tablet 2.5 mg 2.5 mg, [...] Given 07/12/2021 8:06 PM EST 5 mLs thrombin (Bovine) (Thrombinar) kit ONCE PRN, Starting on Sat07/11/21 at 1207, Until Sat07/14/21 at 1610, Intra-Operative (Intra-Procedure) Given 07/11/2021 12:07 PM EST 20,000 Units 19- Surgical Site vancomycin (Vancocin) injection ONCE PRN, Starting on Sat07/11/21 at 1208, Until Sat07/14/21 at 1610, Intra-Operative (Intra-Procedure), Routine Given 07/11/2021 12:08 PM EST 1 g 19- Surgical Site documented in this encounter Active and Recently [...] Padilla RN)1406 (Given - Provider: Nohemy Ribera LPN)0883 (Given - Provider: Kalie Gomez RN) 0514 (Given - Provider: Georgette Zarate, KAMLA) acetaminophen (Tylenol) tablet 1,000 mg 1,000 mg, [...] Koenig Jr., RN)1716 (Given - Provider: Alisha Hawkins RN)2309 (Given - Provider: Robert Blankenship, KAMLA) 0526 (Given - Provider: Robert Blankenship, KAMLA)1255 (Given - Provider: Lucretia Samuel RN) ascorbic acid (Vitamin C) (Vitamin C) tablet 500 mg 500 mg, Oral, DAILY, First dose on Sat07/12/21 at 0900, Until Discontinued 08 (Given - Provider: Lucretia Samuel RN) 0847 (Given - Provider: Gloria Zaragoza LPN) 0908 (Given - Provider: Lucretia Samuel RN) bisacodyL [...] Blankenship RN) 0930 (Given - Provider: Lucretia Samuel RN) buPROPion SR (Wellbutrin SR) tablet 200 mg 200 mg, Oral, DAILY, First dose on Sat07/12/21 at 0900, Until Discontinued, DO NOT CRUSH OR OPEN, Routine 0811 (Given - Provider: Lucretia Samuel RN) 0900 (Given - Provider: Gloria Zaragzoa LPN) 0908 (Given - Provider: Lucretia Samuel [...] 2230, Until Discontinued, Remove lidocaine 5% patch 2229 (Patch Removed - Provider: Robert Blankenship, KAMLA) lisinopriL (Zestril) tablet 10 mg 10 mg, Oral, DAILY, First dose on Sat07/12/21 at 0900, Until Discontinued, Hold if SBP<115, Routine 08 (Given - Provider: Lucretia Samuel RN) 0848 (Given - Provider: Gloria Zaragoza LPN) 09 (Given - Provider: Lucretia Samuel RN) magnesium sulfate 2 g in sterile water 50 mL infusion (COMPLETED) 2 g, Intravenous, ONCE, 1 dose, On Sat07/13/21 at 1600, Administer over 120 Minutes 1715 (New Bag - Provider: Alisha Hawkins RN)1915 (Stopped - Provider: Robert Blankenship, KAMLA) montelukast (Singulair) tablet 10 mg 10 mg, Oral, NIGHTLY, First dose on Sat07/11/21 at 2100, Until Discontinued, Routine 2004 (Given - Provider: Georgette Zarate RN) 2125 (Given - Provider: Robert Blankenship, KAMLA) multivitamin with minerals (Thera M) tablet 1 tablet 1 tablet, Oral, DAILY, First dose on Sat07/12/21 at 0900, Until Discontinued, Routine 08 (Given - Provider: Lucretia Samuel RN) 08 (Given - Provider: Gloria Zaragoza LPN) 09 (Given - Provider: Lucretia Samuel RN) polyethylene glycoL (Miralax) packet 17 g 17 g, Oral, 2 TIMES DAILY, First dose on Sat07/11/21 at 2100, Until Discontinued, Routine 0900 (Not Given - Provider: Lucretia Samuel RN - Reason: Patient/family refused)2003 (Given - Provider: Georgette Zarate RN) 08 (Given - Provider: Gloria Zaragoza LPN)2124 (Given [...] Routine 0811 (Given - Provider: Lucretia Samuel RN)2004 (Given [...] Unit) 0556 (New Bag - Provider: Shobha Padilla, RN)2235 (New Bag - Provider: Georgette Zarate, RN) 1044 (Stopped - Provider: Alisha Hawkins RN) PRN Medication Order 07/12/2021 07/13/2021 07/14/2021 albuteroL (Proventil) nebulizer solution 2.5 mg 2.5 mg, Nebulization, EVERY 4 HOURS PRN, Starting on Sat07/11/21 at 1602, Until Sat07/14/21 at 1610, Wheezing, Shortness of Breath, Routine benzonatate (Tessalon) capsule 100 mg 100 mg, Oral, 3 TIMES DAILY PRN, Starting on Sat07/11/21 at 2002, Until Sat07/14/21 at 1610, Cough, [...] may be given concomitantly for constipation., Routine 1716 (Given - Provider: Alisha Hawkins, KAMLA) melatonin [...] If pain not relieved, call provider., Routine 06 (See Alternative - Provider: Shobha Padilla RN)1051 (See Alternative - Provider: Lucretia Samuel RN)1609 (See Alternative - Provider: Lucretia Samuel RN)2004 (See Alternative - Provider: Georgette Zarate, KAMLA) 0514 (Given - Provider: Georgette Zarate RN) oxyCODONE (Roxicodone) tablet 10 mg (CANCELED) 10 mg, Oral, EVERY 4 HOURS PRN, Starting on Sat07/13/21 at 1513, Until Jessie 07/13/21 at 1815, Pain, moderate to severe pain (6-10), If pain not relieved, call provider., Routine 1716 (Given - Provider: Alisha Hawkins RN) oxyCODONE (Roxicodone) tablet 15 mg (CANCELED) 15 mg, Oral, EVERY 4 HOURS PRN, Starting on Sat07/11/21 at 1602, Until Sat07/13/21 at 1514, Pain, severe pain (7-10), For severe pain (7-10). Do not exceed 15 mg in 4 hours. If pain not relieved, call provider., Routine 06 (See Alternative - Provider: Shobha Padilla RN)105 (See Alternative - Provider: Lucretia Samuel RN)160 (See Alternative - Provider: Lucretia Samuel RN)2004 (Given - Provider: Georgette Zarate RN) 513 (See Alternative - Provider: Georgette Zarate RN) oxyCODONE (Roxicodone) tablet 2.5 mg(Linked Group 2) 2.5 mg, Oral, EVERY 4 HOURS PRN, Starting on Jessie 07/13/21 at 1814, Until Sat07/14/21 at 1610, Pain, mild to moderate pain (1-5) Hold for sedation, If pain not relieved, call provider, Routine 2126 (See Alternative - Provider: Robert Blankenship RN) 05 (See Alternative - Provider: Robert Blankenship RN)0908 (Given - Provider: Lucretia Samuel RN - Comment: pt requested lower dose)131 (See Alternative - Provider: Lucretia Samuel RN) oxyCODONE (Roxicodone) tablet 5 mg (CANCELED) 5 mg, Oral, EVERY 4 HOURS PRN, Starting on Sat07/11/21 at 1602, Until Jessie 07/13/21 at 1514, Pain, mild pain (1-3), For mild pain (1-3). Do not exceed 15 mg in 4 hours. If pain not relieved, call provider, Routine 06 (Given - Provider: Shobha Padilla RN)105 (Given - Provider: Lucretia Samuel RN)160 (Given - Provider: Lucretia Samuel RN - Comment: low dose per pt request)2004 (See Alternative - Provider: Georgette Zarate RN) 513 (See Alternative - Provider: Georgette Zarate, KAMLA) oxyCODONE (Roxicodone) tablet 5 mg(Linked Group 2) 5 mg, Oral, EVERY 4 HOURS PRN, Starting on Sat07/13/21 at 1814, Until Sat07/14/21 at 1610, Pain, moderate to severe pain (6-10) Hold for sedation, If pain not relieved, call provider., Routine 2126 (Given - Provider: Robert Blankenship, RN) 05 (Given - Provider: Robert Blankenship RN)0908 (See Alternative - Provider: Lucretia Samuel, KAMLA)1311 (Given - Provider: Lucretia Samuel, KAMLA) sodium [...] Transdermal, EVERY 24 HOURS, First dose on Jessie 07/13/21 at 1030, Until Discontinued, Apply patch(es) for [...] Routine documented in this encounter Care Teams Broadcast Operations Director Relationship Specialty Start Date End Date Cb Florence PA [address] [place] [address] PCP - General Family Medicine 04/08/20 documented as of this encounter
--- OUTSIDE RECORDS SUMMARY | 2024-03-17 18:26 | XMS_ITS | Encounter Summary ---
[place] [address] Care Team Providers Care Eclectic Doctor Name Role Phone Cb Florence Primary Care Provider +1- [phone] Reason for Visit * Reason Comments Follow Up Surgery Encounter Details Date Type Department Care Team (Latest Contact Info) Description 08/10/2021 3:40 PM EST Office Visit [facility] [place] [address] Rios Acuna MD [facility] [place] [address] s/p Right L4-5 hemilaminectomy and L4-S1 instrumented [...] Sign Reading Time Taken Comments Blood Pressure - - Pulse - - Temperature - - Respiratory Rate - - Oxygen Saturation - - Inhaled Oxygen Concentration - - Weight 88.5 kg (195 lb) 08/10/2021 3:21 PM EST Height 154.9 cm (5' 1) 08/10/2021 3:21 PM EST Body Mass Index 36.84 08/10/2021 3:21 PM EST documented in this encounter Patient Instructions * Patient Instructions* Rios Acuna MD - 08/10/2021 3:40 PM EST X-rays prior to next visit. documented in this encounter Progress Notes * Rios Acuna MD - 08/10/2021 3:40 PM EST Date of surgery: 07/11/2021 Surgery: Revision right L4-L5 hemilaminectomy with transpedicular discectomy and L4-S1 posterolateral instrumented fusion using right iliac crest bone graft Interval history: Ms. Mclaughlin returns today 1 month out from surgery. She is doing fairly well. She reports surgical site pain that is mild to moderate. She has some radiation to the right buttock andproximal thigh but none of the nerve pain going distally. She is still taking 2.5 mg of oxycodone every 4 hours or so. She has been instructed to wean off that medication. She has been staying off the cigarettes. She denies any fevers, chills, or drainage from the incision. She is pleased with her progress so far. Physical exam General: Patient is comfortable, no acute distress Back: Her incision is healed. There is no drainage or surrounding erythema. There is an area of scab formation in the upper half of the incision. Neurological exam: She has 5/5 strength in all lower extremity motors. She has mildly altered sensation in her right lateral thigh. Imaging: AP and lateral x-rays of the lumbar spine from 08/10/2021 were reviewed. These demonstratesome increase in the listhesis at L5-S1 back to the preoperative position. Otherwise there is no change in alignment. There are no signs of hardware failure or loosening. Assessment/plan: Ms. Mclaughlin is 2 months out from her revision decompression and fusion, and she is doing fairly well. I told her that she can grab advance her activities as tolerated. I encouraged her to wean off the oxycodone by the end of her current prescription. I will plan to see her back in 2months with repeat x-rays at that time. documented in this encounter Plan of Treatment Not on file documented as of this encounter Results * [...] who have questions please contact the health professional healthcare representative that requested your imaging first. ? Narrative 10/09/2021 11:30 AM EST EXAMINATION: XR [...] patients who have questions please contactthe health professional healthcare representative that requested your imaging first. Rios Acuna MD IMG DX ORDERABLES documented in this encounter Visit Diagnoses Diagnosis s/p Right L4-5 hemilaminectomy and L4-S1 instrumented fusion on 07/11/21 (Dr. Acuna) Arthrodesis status s/p Right L4-5 hemilaminectomy and L4-S1 instrumented fusion on 07/11/21 (Dr. Acuna) Arthrodesis status documented in this encounter Care Teams Eclectic Doctor Relationship Specialty Start Date End Date Cb Florence PA [address] [place] [address] PCP - General Family Medicine 04/08/20 documented as of this encounter
--- OUTSIDE RECORDS SUMMARY | 2024-03-17 18:26 | XMS_ITS | Encounter Summary ---
[place] [address] Care Team Providers Care Industrial Engineering Name Role Phone Cb Florence Primary Care Provider +1- [phone] Reason for Visit * Reason Onset Date Comments Medication Refill 08/03/2021 Encounter Details Date Type Department Care Team (Late st Contact Info) Description 08/03/2021 Refill [place] [id number] Lucretia Moreno LPN Social History Tobacco Use [...] Telephone Encounter - Lucretia Moreno LPN - 08/03/2021 1:19 PM EST Poppy called requesting refill of Oxycodone 5 mg. She is s/p 07-11-21 1. L4-S1 posterolateral fusion 2. Right L4-L5 revision transpedicular discectomy 3. Right L4-L5 hemilaminectomy with facetectomy and foraminotomies 4. Pedicle screw instrumentation L4-S1 5. Right iliac crest bone grafting She takes typically 0.5 tablet every 4 hours or so at night she typically takes 1 tablet. Advised Poppy that this is here last script from us and she should use this script as a weaning dose, Poppy is in agreement with this plan. Pending script to [facility] in Dr. Acuna's absence. documented in this encounter Plan of Treatment Not on file documented as of this encounter Visit Diagnoses Not on filedocumented in this encounter Care Teams Industrial Engineering Relationship Specialty Start Date End Date Cb Flornece PA [address] [place] [address] PCP - General Family Medicine 04/08/20 documented as of this encounter
--- OUTSIDE RECORDS SUMMARY | 2024-03-17 18:26 | XMS_ITS | Encounter Summary ---
[place] [address] Care Team Providers Care Electrical Installation Supervisor Name Role Phone Cb Florence Primary Care Provider +1- [phone] Encounter Details Date Type Department Care Team (Late st Contact Info) Description 12/29/2021 [place] [phone] Regine Child Social History Tobacco Use Types Packs/Day Years [...] encounter Miscellaneous Notes * Telephone Encounter - Regine Child - 12/29/2021 10:17 AM EDT called to sched pft called 1x documented in this encounter Plan of Treatment Not on file documented as of this encounter Visit Diagnoses Not on filedocumented in this encounter Care Teams Electrical Installation Supervisor Relationship Specialty Start Date End Date Cb Florence PA [address] [place], [place] [id number] PCP - General Family Medicine 04/08/20 documented as of this encounter
--- OUTSIDE RECORDS SUMMARY | 2024-03-17 18:26 | XMS_ITS | Encounter Summary ---
[place] [address] Care Team Providers Care Audiology Director Name Role Phone Cb Florence Primary Care Provider +1- [phone] Encounter Details Date Type Department Care Team (Latest Contact Info) Description 07/18/2022 Travel Social History Tobacco Use Types Packs/Day Years [...] on filedocumented in this encounter Care Teams Audiology Director Relationship Specialty Start Date End Date Cb Florence PA [address] [place] [address] PCP - General Family Medicine 04/08/20 documented as of this encounter
--- OUTSIDE RECORDS SUMMARY | 2024-03-17 18:26 | XMS_ITS | Encounter Summary ---
Author Organization [facility] Address [facility] [place] [address] Care Team Providers Care Automotive Alignment Specialist Name Role Phone Cb Florence Primary Care Provider +1- [phone] Encounter Details Date Type Department Care Team (Latest Contact Info) Description 05/04/2021 9:47 AM EDT - 05/04/2021 11:59 PM EDT Hospital Encounter XRay at [address] [place] [address] [facility] [place] [address] Spondylolisthesis of lumbar region Discharge Disposition: Home [...] MOUTH ONCE DAILY 03/17/2021 Narcan 4 mg/actuation [place], Non-Aerosol ADMINISTER A SINGLE SPRAY INTRANASALLY INTO [...] CLASSIC OXYGEN CONCENTRATOR MISC) 3 L by [place] [facility] [place]Non-Drug; Combo Route) route nightly. diphenoxylate-atropin e (LOMOTIL) 2.5-0.025 mg Tablet Take 1 tablet by mouth 4 times daily. DO NOT restarted this unless you are having diarrhea. 120 tablet 7 06/11/2014 albuterol (PROVENTIL HFA;VENTOLIN HFA) 90 mcg/actuation HFA Aerosol Inhaler Inhale 2 puffs into the lungs every 4 hours as needed. Use with spacer Inhalational Spacing Device Spcr 2 puffs by [facility] [place]Non-Drug; Combo Route) route daily. promethazine (PHENERGAN) 25 [...] needed for Pain. 30 tablet 07/14/2021 07/20/2021 sulfamethoxazole-trim ethoprim DS (Bactrim DS) 800-160 mg TabletIndications:MULTIFOCAL BUTTON GRINDER D, moderate Take 1 tablet by mouth 2 times daily. 10 tablet 01/20/2021 07/14/2021 gabapentin (NEURONTIN) 600 mg TabletIndications:Ess ential tremor,Hand paresthesia, unspecified laterality Take 1 tablet by mouth 3 times daily. 90 tablet 5 06/01/2020 07/14/2021 meloxicam (MOBIC) 15 mg Tablet daily. 04/08/2020 07/14/2021 traMADoL (Ultram) 50 mg Tablet 3 times daily. 04/30/2020 07/14/2021 eluxadoline (Viberzi) 100 mg TabletIndications:Irr itable bowel syndrome with diarrhea Take 100 mg by mouth daily. 30 tablet 1 01/08/2020 07/14/2021 Viberzi 100 mg TabletIndications:Irr itable bowel syndrome with diarrhea Take 1 tablet by mouth twice daily 60 tablet 5 01/08/2020 07/14/2021 acetaminophen (TYLENOL) 500 mg Tablet Take 1,000 mg by mouth every 6 hours as needed. 07/14/2021 fluticasone (FLONASE) 50 mcg/actuation nasal spray USE ONE SPRAY IN EACH NOSTRIL TWICE DAILY 1 each 3 11/07/2013 07/14/2021 ipratropium (ATROVENT) 0.06 % nasal spray USE TWO SPRAYS BY NASAL ROUTE 4 TIMES DAILY 15 mL 2 10/21/2013 07/14/2021 citalopram (CELEXA) 40 mg tablet Take 1 tablet by mouth daily. 90 tablet 3 08/19/2012 07/14/2021 documented as of this encounter Plan of Treatment Not on file documented as of this encounter Procedures Procedure Name Priority Date/Time Associated Diagnosis Comments XR LUMBAR SPINE 2 OR 3 VIEWS Routine 05/04/2021 10:00 AM EDT Spondylolisthesis of lumbar region documented in this encounter Results * XR Lumbar Spine 2 Or 3 Views (Generic) (05/04/2021 10:00 AM EDT) Anatomical Region Laterality Modality L-spine N/A Digital Radiogra phy Impressions 05/04/2021 10:18 AM EDT New grade 1 anterolisthesis of L4 on L5. Slight progression of grade 1/2 anterolisthesis of L5 and S1. No dynamic instability on today's radiographs. Thank you for letting us participate in the care of this patient. ??If you are a health care provider and have any questions regarding this report, please contact the number below. ??For patients who have questions please contact the health career technical education instructor that requested your imaging first. ? Narrative 05/04/2021 10:18 AM EDT EXAMINATION: XR LUMBAR SPINE 2 OR 3 VIEWS (GENERIC) CLINICAL HISTORY: Please do AP and lat flex-ext x-rays for pre-op planning, TODAY TECHNIQUE: 3 views of the lumbar spine COMPARISON: April 2018 FINDINGS: There are 5 nonrib-bearing lumbar-type vertebral bodies. Similar mild convex left curvature. The vertebral body heights are intact. In the upright position, there is 7 mm of anterolisthesis of L4 on L5, which is new compared to prior radiograph. There is 10 mm L5-S1, slightly increased compared to the prior radiograph. With flexion and extension the anterolisthesis at L4 on L5 and L5 and S1 are unchanged on today's radiographs. There is multilevel bilateral facet degeneration. There is partial disc height loss at L3-L4, L4-L5, L5-S1, widely progressed compared to prior. Procedure Note Kermit Reyna MD - 05/04/2021 EXAMINATION: XR LUMBAR SPINE 2 OR 3 VIEWS (GENERIC) CLINICAL HISTORY: Please do AP and lat flex-ext x-rays for pre-opplanning, TODAY TECHNIQUE: 3 views of the lumbar spine COMPARISON: April 2018 FINDINGS: There are 5 nonrib-bearing lumbar-type vertebral bodies. Similar mildconvex left curvature. The vertebral body heights are intact. In the uprightposition, there is 7 mm of anterolisthesis of L4 on L5, which is new compared toprior radiograph. There is 10 mm L5-S1, slightly increased compared to theprior radiograph. With flexion and extension the anterolisthesis at L4 on L5 and L5 and S1are unchanged on today's radiographs. There is multilevel bilateral facet degeneration. There is partial disc height loss at L3-L4, L4-L5, L5-S1,widely progressed compared to prior. IMPRESSION New grade 1 anterolisthesis of L4 on L5. Slight progression of grade 1/2 anterolisthesis of L5 and S1. No dynamic instability on today's radiographs. Thank you for letting us participate in the care of this patient. If youare a health care provider and have any questions regarding this report,please contact the number below. For patients who have questions please contactthe health career technical education instructor that requested your imaging first. Rios Acuna MD IMG DX ORDERABLES documented in this encounter Visit Diagnoses Diagnosis Spondylolisthesis of lumbar region Acquired spondylolisthesis documented in this encounter Care Teams Automotive Alignment Specialist Relationship Specialty Start Date End Date Cb Florence PA [address] [place] [address] PCP - General Family Medicine 04/08/20 documented as of this encounter
--- OUTSIDE RECORDS SUMMARY | 2024-03-17 18:27 | XMS_ITS | Encounter Summary ---
Author Organization [facility] [address] Care Team Providers Care Transmission Repairer Name Role Phone Cb Florence Primary Care Provider +1- [phone] Reason for Visit * Reason Comments Medication Refill Encounter Details Date Type Department Care Team (Late st Contact Info) Description 12/25/2019 [place] [address] Osmany Keller MD [facility] [place] [address] Irritable bowel syndrome with diarrhea Social History Tobacco Use Types Packs/Day Years Used Date Smoking Tobacco: Every Day Cigarettes 1.5 20 Smokeless Tobacco: Never Comments:pt would like [...] as of this encounter Visit Diagnoses Diagnosis Irritable bowel syndrome with diarrhea Irritable bowel syndrome documented in this encounter Care Teams Transmission Repairer Relationship Specialty Start Date End Date Cb Florence PA [address] [place] [address] PCP - General Family Medicine 11/13/18 03/29/20 documented as of this encounter
--- OUTSIDE RECORDS SUMMARY | 2024-03-17 18:27 | XMS_ITS | Encounter Summary ---
Author Organization [facility] [place] [address] Care Team Providers Care Project Development Leader Name Role Phone Cb Florence Primary Care Provider +1- [phone] Encounter Details Date Type Department Care Team (Latest Contact Info) Description 05/27/2020 8:30 AM EDT [place] [address] Marshall Montgomery MD [facility] [place] [address] Hand paresthesia, unspecified laterality Social History Tobacco Use Types Packs/Day Years [...] Sign Reading Time Taken Comments Blood Pressure 138/90 05/27/2020 8:07 AM EDT Pulse 77 05/27/2020 8:07 AM EDT Temperature - - Respiratory Rate - - Oxygen Saturation - - Inhaled Oxygen Concentration - - Weight 79.4 kg (175 lb) 05/27/2020 8:07 AM EDT Height 152.4 cm (5') 05/27/2020 8:07 AM EDT Body Mass Index 34.18 05/27/2020 8:07 AM EDT documented in this encounter Progress Notes * Joshua Tillman MD - 05/27/2020 8:30 AM EDT Neuromuscular Outpatient Clinic Note - 05/27/2020 PCP: [facility] Attending: Dr. Montgomery CC: Tingling bilateral hands HPI: Poppy Mclaughlin is a 59 y.o. female with PMHx of cervical nerve compression (s/p surgery) at multiple levels who has been referred for NCS/EMG testing by Dr. Reyez for bilateral parasthesias affecting the dorsal and palmar surfaces of the hands. Poppy is reporting intermittent tingling of bilateral forearms extending into the hand, which involves the palmar and dorsal surfaces and all fingers. No parasthesias about the elbow. She has rare breaks for parasthesias. Tingling is made worse by repeated lifting of things such as shopping bags. She reports subjective weakness in her hands and will sometimes drop things. She is able to lift things such as a full coffee cup, but will sometimes spill d/t shaking. She does not have numbness of her hand. She denies any shooting or burning pain. Denies parasthesias in her lower limbs, or weakness. No abnormalities in gait or lower extremity strength reported. Symptoms can sometimes be made worse by turning of her head. She describes neck movement as 'clunky'. Past Medical & Surgical History: Patient Active Problem List Diagnosis ??? Influenza due to identified novel H1N1 [...] STRUCTUAL performed by Rios Acuna MD at [facility] OR ??? PRO ANTERIOR INSTRUMENTATION 2-3 VERTEBRAL SEGMENTS 09/08/2013 @ANT. SPINAL INSTRUMENTATION, 2-3 VERTEBRA, SEGMENTED performed by Rios Acuna MD at [facility] [place] ??? PRO ARTHRD ANT INTERDY CERVCL BELW C2 EA ADDL NTRSPC 09/08/2013 @ARTHRODESIS ANT INTERBDY CERVCL BELOW C2 EA ADDL INTRSPACE performed by Rios Acuna MD at [facility] OR ??? PRO ARTHRODESIS, ANT INTERBODY,DECOMPRESSION; CERVICAL BELOW C2 09/08/2013 ARTHRODESIS, ANT INTERBODY,DECOMPRESSION; CERVICAL BELOW C2 performed by Rios Acuna MD at [facility] OR ??? PRO DECOMPRESS SPINAL CORD, 1 SEG Right 08/31/2014 TRANSPEDICULAR LUMBAR DECOMPRESSION SPINAL CORD,EQUINA & NERVE ROOTS, ONE LVL. performed by Rios Acuna MD at [facility] OR ??? PRO LAP, CHOLECYSTECTOMY/GRAPH 11/04/2012 LAPAROSCOPIC CHOLECYSTECTOMY WITH CHOLANGIOGRAM performed by Abel Carlton MD at [facility] OR ??? PRO UPPER GI ENDOSCOPY, BIOPSY N/A 10/26/2015 UPPER GASTROINTESTINAL ENDOSCOPY,WITH BIOPSY SINGLE OR MULTIPLE performed by Apolinar Sepulveda MDat [facility] ??? PRO UPPER GI ENDOSCOPY, DIAGNOSTIC N/A 10/26/2015 EGD, UPPER GI ENDOSCOPY performed by Apolinar Sepulveda MD at [facility] ??? PRO UPPER GI ENDOSCOPY, DIAGNOSTIC N/A 10/02/2016 EGD, UPPER GI ENDOSCOPY performed by Justin Starkey MD at [facility] ??? PRO UPPER GI ENDOSCOPY, W/DIR SUBMUC INJ 11/05/2017 EGD, W DIRECTED SUBMUCOSAL INJECTION(S) performed by Osmany Keller MD at [facility] ENDOSCOPY Medications: Current Outpatient Medications on File Prior to Visit Medication Sig Dispense Refill ??? Lumenis Ultra Blue Test Strip Strip USE 1 STRIP TO CHECK GLUCOSE ONCE DAILY DIRECTED ??? buPROPion SR (Wellbutrin SR) 200 mg tablet sustained-release 12 hr daily. ??? fluconazole (Diflucan) 150 mg Tablet as needed. ??? lisinopriL (Prinivil;Zestril) 10 mg Tablet daily. ??? meloxicam (MOBIC) 15 mg Tablet daily. ??? traMADoL (Ultram) 50 mg Tablet 3 times daily. ??? traZODone (Desyrel) 50 mg Tablet nightly. ??? Chantix Starting Month Box 0.5 mg (11)- 1 mg (42) Tablets, Dose Pack TAKE 1 TABLET BY MOUTH IN MORNING WITH FOOD FOR 3 DAYS THEN INCREASE TO 1 TABLET BY MOUTH TWICE DAILY WITH FOOD THEREAFTER DIRECTED ON PA ??? Miscellaneous Medical Supply Misc Face mask for nocturnal O2, and appropriate accessories. 1 each PRN ??? eluxadoline (Viberzi) 100 mg Tablet Take 100 mg by mouth daily. 30 tablet 1 ??? gabapentin (NEURONTIN) 300 mg Capsule Take 1 capsule by mouth 3 times daily. 90 capsule 12 ??? rosuvastatin (CRESTOR) 10 mg Tablet Take 10 mg by mouth nightly. ??? montelukast (SINGULAIR) 10 mg Tablet Take 10 mg by mouth nightly. ??? benzonatate (TESSALON) 100 mg Capsule Take 100 mg by mouth 3 times daily as needed for Cough. ??? guaiFENesin 600 mg Tablet Extended Release 12hr Take 1 tablet by mouth 2 times daily. 60 [id number] ??? baclofen (LIORESAL) 10 mg Tablet Take 10 mg by mouth 3 times daily. Takes 20mg at night ??? SYMBICORT 160-4.5 mcg/actuation HFA Aerosol Inhaler Inhale 2 puffs into the lungs 2 times daily. ??? albuterol (PROVENTIL) 2.5 mg /3 mL (0.083 %) Solution for Nebulization Take 2.5 mg by nebulization every 4 hours as needed for Wheezing. ??? OXYGEN-AIR DELIVERY SYSTEMS ( CLASSIC OXYGEN CONCENTRATOR MISC) [address] [facility]Non-Drug; Combo Route) route nightly. ??? diphenoxylate-atropine (LOMOTIL) 2.5-0.025 mg Tablet Take 1 tablet by mouth 4 times daily. DO NOT restarted this unless you are having diarrhea. (Patient taking differently: Take 1 tablet by mouth as needed. DO NOT restarted this unless you are having diarrhea.) 120 tablet 7 ??? albuterol (PROVENTIL HFA;VENTOLIN HFA) 90 mcg/actuation HFA Aerosol Inhaler Inhale 2 puffs intothe lungs every 4 hours as needed. Use with spacer ??? acetaminophen (TYLENOL) 500 mg Tablet Take 1,000 mg by mouth every 6 hours as needed. ??? Inhalational Spacing Device Spcr [address] [facility].(Non-Drug; Combo Route) route daily. ??? promethazine (PHENERGAN) 25 mg tablet Take 25 mg by mouth every 6 hours as needed. ??? cholecalciferol, Vitamin D3, 400 unit tablet Take 400 Units by mouth daily. ??? MULTIVITAMIN ORAL Take 2 tablets by mouth daily. ??? ASCORBATE CALCIUM (VITAMIN C ORAL) Take 1 tablet by mouth daily. ??? citalopram (CELEXA) 40 mg tablet Take 1 tablet by mouth daily. 90 tablet 3 ??? Viberzi 100 mg Tablet Take 1 tablet by mouth twice daily (Patient not taking: Reported on 05/27/2020) 60 tablet 5 ??? sulfamethoxazole-trimethoprim DS (Bactrim DS) 800-160 mg Tablet Take 1 tablet by mouth 2 times daily. (Patient not taking: Reported on 05/27/2020) 14 tablet 1 ??? prochlorperazine (COMPAZINE) 10 mg Tablet Take 10 mg by mouth every 8 hours as needed for Nausea. ??? chlorpheniramine (CHLOR-TRIMETON) 4 mg Tablet Take 4 mg by mouth every 6 hours as needed for Allergies. ??? fluticasone (FLONASE) 50 mcg/actuation nasal spray USE ONE SPRAY IN EACH NOSTRIL TWICE DAILY (Patient not taking: Reported on 04/14/2020) 1 each 3 ??? ipratropium (ATROVENT) 0.06 % nasal spray USE TWO SPRAYS BY NASAL ROUTE 4 TIMES DAILY (Patient not taking: No sig reported) 15 mL 2 ??? loratadine (CLARITIN) 10 mg tablet Take 10 mg by mouth daily. No current facility-administered medications on file prior to visit. Physical Exam: Vitals: Last value Range last 24 hrs Temperature Temp: -- Heart Rate Heart Rate: 77 Heart Rate: [77] Blood Pressure BP: 138/90 BP: (138)/(90) Respiratory Rate Resp: -- SpO2 SpO2: -- I/O: No intake/output data recorded. General: Appears stated age, WDWN, NAD HEENT: NC/AT, MMM Pulm: Normal WOB. Mild dyspnea. Intermittent cough. CV: NRRR Abdomen: Soft, NT/ND. Extremities: No C/C/E. Peripheral pulses intact. Tinel's and Phalen's signs were not present. Neuro: MS: AAOx4, Language: Fluent, no dysarthria or paraphasic errors CN: CN II, III, IV, - PERRLA, EOMI without nystagmus CN V - Facial sensation intact/symmetric CN VII - No facial asymmetry CN VIII - Hearing intact to voice/finger rub CN IX, X - Symmetric palate elevation CN XI - SCM, trap strength symmetric 5/5 CN XII - Tongue midline Motor: Normal bulk and tone Symmetric hand/finger roll Strength 5/5 in all extremities. Specifically no weakness in APB, OP or wrist extension. Sensory: Intact to light touch, pinprick, vibration and temperature throughout Romberg absent Reflexes: Diffusely reduced reflexes. Coordination: FNF intact, no dysmetria. Mild tremor noted in bilateral hand when holding hands out. ROSALINA, finger tapping smooth and symmetric Gait: Stable, equal stride, normal armswing Diagnostic Tests and Imaging: Normal EMG and NCS studies. Specifically no evidence of right or left median neuropathy, left ulnarneuropathy, right radial neuropathy or cervical radiculopathy. Assessment / Plan: Poppy Mclaughlin is a 59 y.o. female with PMHx of cervical nerve compression (s/p surgery) at multiple levels who has been referred for NCS/EMG testing by Dr. Reyez for bilateral parasthesias affecting the dorsal and palmar surfaces of the hands. Neurologic examination and electrodiagnostic studies were normal. There was no evidence of neuropathy in named nerves or evidence of cervical radiculopathy. // Patient seen with Dr. Ulises Tillman MD Neurology, PGY-2 05/27/2020 I have seen the patient and reviewed the resident's above history and I agree with the details as written. The assessment and plan were formulated in discussion with me and I agree with them as documented. I assisted Dr. Tillman with the EMG. Marshall Montgomery MD documented in this encounter Plan of Treatment Not on file documented as of this encounter Visit Diagnoses Diagnosis Hand paresthesia, unspecified laterality documented in this encounter Care Teams Project Development Leader Relationship Specialty Start Date End Date Cb Florence PA [address] [place] [address] PCP - General Family Medicine 04/08/20 documented as of this encounter
--- OUTSIDE RECORDS SUMMARY | 2024-03-17 18:27 | XMS_ITS | Encounter Summary ---
[place] [address] Care Team Providers Care Admissions Rn Name Role Phone Cb Florence Primary Care Provider +1- [phone] Reason for Visit * Reason Onset Date Comments Oxygen Dependence 02/02/2020 Written Confir mation of Oxygen Order Encounter Details Date Type Department Care Team (Late st Contact Info) Description 02/02/2020 [place] [address] Suzanne Sears RN Oxygen Dependence (Written Confirmation of Oxygen Order) Social History Tobacco Use Types Packs/Day Years [...] Telephone Encounter - Suzanne Sears RN - 02/03/2020 8:06 AM EDT Faxed completed Written Confirmation of Order for Oxygen form, signed by Dr. Holloway, to [employer] This covered the following: E1392 - Portable Oxygen E1390 - Concentrator Oxlife 3 LPM Fax submission confirmation time stamped for 02/02/2020 @ 9844. 2 pages with cover sheet. Copy of Written Confirmation of Order form sent to scanning for inclusion to patient records. documented in this encounter Plan of Treatment Not on file documented as of this encounter Visit Diagnoses Not on filedocumented in this encounter Care Teams Admissions Rn Relationship Specialty Start Date End Date Cb Florence PA [address] [place] [address] PCP - General Family Medicine 11/13/18 03/29/20 documented as of this encounter
--- OUTSIDE RECORDS SUMMARY | 2024-03-17 18:27 | XMS_ITS | Encounter Summary ---
[place] [address] Care Team Providers Care Surveillance Inspector Name Role Phone Cb Florence Primary Care Provider +1- [phone] Reason for Visit * Reason Onset Date Comments Oxygen Dependence 01/27/2021 Certificate of Medical Necessity Encounter Details Date Type Department Care Team (Late st Contact Info) Description 01/27/2021 [place] [address] Suzanne Sears RN Oxygen Dependence (Certificate of Medical Necessity) Social History Tobacco Use Types Packs/Day Years [...] Telephone Encounter - Suzanne Sears RN - 02/02/2021 8:02 AM EDT Faxed completed Certificate of Medical Necessity for Oxygen, signed by Dr. Holloway, to [facility]. This covered the following items: E0424 - Regulator O2 Stationary 0-8 LPM. E1390 - Concentrator 5 LPM W/ O2 Sen Port E1392 - Portable Oxygen Fax submission confirmation time stamped for 01/27/2021 @ 0514. 4 pages with cover sheet. Copy of Certificate of Medical Necessity for Oxygen sent to scanning for inclusion to patient records. documented in this encounter Plan of Treatment Not on file documented as of this encounter Visit Diagnoses Not on filedocumented in this encounter Care Teams Surveillance Inspector Relationship Specialty Start Date End Date Cb Florence PA [address] [place] [address] PCP - General Family Medicine 04/08/20 documented as of this encounter
--- OUTSIDE RECORDS SUMMARY | 2024-03-17 18:27 | XMS_ITS | Encounter Summary ---
Author Organization [facility] [address] Care Team Providers Care Agriculture Manager Name Role Phone Cb Florence Primary Care Provider +1- [phone] Reason for Visit * Diagnostic Test (Routine) - Closed Specialty Diagnoses / Procedures Referred By Chava alejo Referred To Contact Radiology Diagnoses Type 2 diabetes mellitus with complication, with long-term current use of insulin Procedures NM Gastric Emptying Scan Mary Alice Scanlon MD [facility] GENERAL [place] [address] [place] [address] Referral ID Status Reason Start Date Expiration Date V isits Requested Visits Authorized [id number] Closed Specialty Service Requested 10/08/2018 10/08/2019 1 1 Encounter Details Date Type Department Care Team (Latest Contact Info) Description 01/01/2019 9:46 AM EDT Hospital Encounter [place] [address] Osmany Keller MD [facility] [place] [address] Discharge Disposition: Home Social History Tobacco Use [...] Sig Dispensed Refills Start Date End Date rosuvastatin (CRESTOR) 10 mg Tablet Take 10 [...] 2 times daily. 05/02/2016 OXYGEN-AIR DELIVERY SYSTEMS ([employer] CLASSIC OXYGEN CONCENTRATOR MISC) 3 L by [facility] [place].(Non-Drug; Combo Route) route nightly. diphenoxylate-atropin e (LOMOTIL) [...] ORAL) Take 1 tablet by mouth daily. baclofen (LIORESAL) 10 mg Tablet Take 10 [...] lung Take 10 mg by mouth daily. gabapentin (NEURONTIN) 300 mg Capsule Take 1 capsule by mouth 3 times daily. 90 capsule 12 11/25/2018 06/01/2020 eluxadoline (VIBERZI) 100 mg TabletIndications:Irr itable bowel syndrome with diarrhea Take 100 mg by mouth 2 times daily. 180 tablet 1 08/29/2018 07/27/2019 Miscellaneous Medical Supply MiscIndications:PAH (pulmonary artery hypertension) Face mask for nocturnal O2 1 each 10/24/2016 04/18/2020 acetaminophen (TYLENOL) 500 mg Tablet Take 1,000 [...] Procedure Name Priority Date/Time Associated Diagnosis Comments NM GASTRIC EMPTYING SCAN Routine 01/01/2019 12:11 PM EDT Type 2 diabetes mellitus with complication, with long-term current use of insulin documented in this encounter Results * NM Gastric Emptying Scan (01/01/2019 12:11 PM EDT) Anatomical Region Laterality Modality Nuclear Medicine Impressions 01/01/2019 5:35 PM EDT Normal gastric emptying. I have personally reviewed the image(s) and the residents interpretation and agree with the findings, Anatoliy Flores at 01/01/2019 5:35 PM Thank you for letting us participate in the care of this patient. For questions regarding this report, please contact the number below. ? Narrative 01/01/2019 5:35 PM EDT EXAMINATION: NM GASTRIC EMPTYING SCAN CLINICAL HISTORY: Gastroparesis TECHNIQUE: A standard meal was labeled with 0.8 mCi of Technetium-99m sulfur colloid and ingested. Images of the stomach were obtained in the anterior and posterior projections immediately thereafter and 1 and 2 hours later. COMPARISON: None FINDINGS: Activity fills the stomach on the initial images obtained immediately after ingesting the meal. Small bowel is visible at one hour. There is minimal activity present in the stomach at 2 hours. Quantitative analysis: 1 hours: 37 percent remains in the stomach (normal less than 60% at 2 hours) 2 hours: 4 percent remains in the stomach (normal less than 10% at four hours) Procedure Note Anatoliy Flores MD - 01/01/2019 EXAMINATION: NM GASTRIC EMPTYING SCAN CLINICAL HISTORY: Gastroparesis TECHNIQUE: A standard meal was labeled with 0.8 mCi of Technetium-99msulfur colloid and ingested. Images of the stomach were obtained in the anteriorand posterior projections immediately thereafter and 1 and 2 hours later. COMPARISON: None FINDINGS: Activity fills the stomach on the initial images obtained immediatelyafter ingesting the meal. Small bowel is visible at one hour. There is minimal activity present in the stomach at 2 hours. Quantitative analysis: 1 hours: 37 percent remains in the stomach (normal less than 60% at 2hours) 2 hours: 4 percent remains in the stomach (normal less than 10% at fourhours) IMPRESSION Normal gastric emptying. I have personally reviewed the image(s) and the residents interpretationand agree with the findings, Anatoliy Flores at 01/01/2019 5:35 PM Thank you for letting us participate in the care of this patient. Forquestions regarding this report, please contact the number below. Osmany Overton MD IMG NM ORDERABLE S documented in this encounter Visit Diagnoses Not on filedocumented in this encounter Care Teams Agriculture Manager Relationship Specialty Start Date End Date Cb Florence PA [address] [place] [address] PCP - General Family Medicine 11/13/18 03/29/20 documented as of this encounter
--- OUTSIDE RECORDS SUMMARY | 2024-03-17 18:27 | XMS_ITS | Encounter Summary ---
Author Organization [facility] [place] [address] Care Team Providers Care Wood Scaler Name Role Phone Cb Florence Primary Care Provider +1- [phone] Reason for Visit * Diagnostic Test (Routine) - Closed Specialty Diagnoses / Procedures Referred By Chava alejo Referred To Contact Radiology Diagnoses Type 2 diabetes mellitus with complication, with long-term current use of insulin Procedures NM Gastric Emptying Scan Mary Alice Scanlon MD [facility] GENERAL [place] [address] [place] [address] Referral ID Status Reason Start Date Expiration Date V isits Requested Visits Authorized [id number] Closed Specialty Service Requested 10/08/2018 10/08/2019 1 1 Encounter Details Date Type Department Care Team (Latest Contact Info) Description 01/01/2019 9:46 AM EDT Hospital Encounter [place] [address] Osmany Keller MD [facility] [place] [address] Discharge Disposition: Home Social History [...] 2 times daily. 05/02/2016 OXYGEN-AIR DELIVERY SYSTEMS (ISIS CLASSIC OXYGEN CONCENTRATOR MISC) 3 L by [facility] [place].(Non-Drug; Combo Route) route nightly. diphenoxylate-atropin e (LOMOTIL) [...] on filedocumented in this encounter Care Teams Wood Scaler Relationship Specialty Start Date End Date Cb Florence PA [address] [place] [address] PCP - General Family Medicine 11/13/18 03/29/20 documented as of this encounter
--- OUTSIDE RECORDS SUMMARY | 2024-03-17 18:27 | XMS_ITS | Encounter Summary ---
[place] [address] Care Team Providers Care Linoleum Floor Installer Name Role Phone Cb Florence Primary Care Provider +1- [phone] Encounter Details Date Type Department Care Team (Late st Contact Info) Description 02/21/2021 Ancillary Procedure [place] [address] Cb Florence PA [address] [place] [address] Social History Tobacco Use Types Packs/Day Years [...] Procedure Name Priority Date/Time Associated Diagnosis Comments FILM LIBRARY STORAGE ONLY MR SPINE Routine 02/21/2021 12:00 AM EDT documented in this encounter Results * Film Library- Storage Only MR Spine (02/21/2021 12:00 AM EDT) Narrative [facility] - 03/30/2021 10:59 AM EDT This exam is auto-finalizing. It's purpose is for storage only. Cb CRAIG IMG FILM LIBRARY O RDERABLES [place], [place] documented in this encounter Visit Diagnoses Not on filedocumented in this encounter Care Teams Linoleum Floor Installer Relationship Specialty Start Date End Date Cb Florence PA [address] [place] [address] PCP - General Family Medicine 04/08/20 documented as of this encounter
--- OUTSIDE RECORDS SUMMARY | 2024-03-17 18:27 | XMS_ITS | Encounter Summary ---
[place] [address] Care Team Providers Care Fuel Management Handler Name Role Phone Cb Florence Primary Care Provider +1- [phone] Reason for Visit * Reason Onset Date Comments Oxygen Dependence 03/23/2019 Written Confir mation of an order for oxygen Encounter Details Date Type Department Care Team (Late st Contact Info) Description 03/23/2019 [place] [address] Suzanne Sears RN Oxygen Dependence (Written Confirmation of an order for oxygen) Social History Tobacco Use Types Packs/Day Years [...] Telephone Encounter - Suzanne Sears RN - 03/23/2019 2:21 PM EDT Faxed completed Confirmation of an Order for Oxygen covering the following E1392 - Portable Oxygen E1390 - Concentrator Oxlife [address] Holloway, fax submission confirmation time stamped for 03/23/2019, @ 7052. Copy sent to scanning for inclusion to patient records. documented in this encounter Plan of Treatment Not on file documented as of this encounter Visit Diagnoses Not on filedocumented in this encounter Care Teams Fuel Management Handler Relationship Specialty Start Date End Date Cb Florence PA [address] [place] [address] PCP - General Family Medicine 11/13/18 03/29/20 documented as of this encounter
--- OUTSIDE RECORDS SUMMARY | 2024-03-17 18:27 | XMS_ITS | Encounter Summary ---
[place] [address] Care Team Providers Care Electroplating Sales Representative Name Role Phone Cb Florence Primary Care Provider +1- [phone] Encounter Details Date Type Department Care Team (Late st Contact Info) Description 12/16/2019 [place] [address] Stef Paul, KAMLA Irritable bowel syndrome with diarrhea Social History [...] encounter Miscellaneous Notes * Telephone Encounter - Stef Paul RN - 12/16/2019 11:15 AM EDT Patient calls the office leaving a message on the RN voicemail asking about her request for Viberzirefill. Returned call to patient making er aware that this technical report writer tried reaching her last week via phone and [facility], but was not able. Made patient aware that Dr. Keller is willing to refill Viberzi, but would like patient to schedule a phone or telehealth visit. Patient verbalized understanding and will call the office to schedule. Will send prescription for 30 day supply with one refill until patients appointment is scheduled. documented in this encounter Plan of Treatment Not on file documented as of this encounter Visit Diagnoses Diagnosis Irritable bowel syndrome with diarrhea Irritable bowel syndrome documented in this encounter Care Teams Electroplating Sales Representative Relationship Specialty Start Date End Date Cb Florence PA [address] [place] [address] PCP - General Family Medicine 11/13/18 03/29/20 documented as of this encounter
--- OUTSIDE RECORDS SUMMARY | 2024-03-17 18:27 | XMS_ITS | Encounter Summary ---
Author Organization [facility] [address] Care Team Providers Care Cover Cutter Machine Name Role Phone Cb Florence Primary Care Provider +1- [phone] Reason for Visit * Diagnostic Test (Routine) - Closed Specialty Diagnoses / Procedures Referred By Chava alejo Referred To Contact Radiology Diagnoses Type 2 diabetes mellitus with complication, with long-term current use of insulin Procedures NM Gastric Emptying Scan Mary Alice Scanlon MD [facility] [place] [address] [place] [address] Referral ID Status Reason Start Date Expiration Date V isits Requested Visits Authorized [id number] Closed Specialty Service Requested 10/08/2018 10/08/2019 1 1 Encounter Details Date Type Department Care Team (Latest Contact Info) Description 01/01/2019 9:47 AM EDT - 01/01/2019 11:59 PM EDT Hospital Encounter [place] [address] Osmany Keller MD [facility] [place] [address] Discharge Disposition: Home Social History [...] L by Misc.(Non-Drug; Combo Route) route nightly. diphenoxylate-atropin e (LOMOTIL) [...] report, please contact the number below. ? Electronically signed by: Anatoliy Flores [facility] ([phone]), at 01/01/2019 5:35 PM Narrative 01/01/2019 5:35 PM EDT EXAMINATION: NM [...] on filedocumented in this encounter Care Teams Cover Cutter Machine Relationship Specialty Start Date End Date Cb Florence [address] [place] [address] PCP - General Family Medicine 11/13/18 03/29/20 documented as of this encounter
--- OUTSIDE RECORDS SUMMARY | 2024-03-17 18:27 | XMS_ITS | Encounter Summary ---
Author Organization [facility] [address] Care Team Providers Care Recordak Operator Name Role Phone Cb Florence Primary Care Provider +1- [phone] Encounter Details Date Type Department Care Team (Latest Contact Info) Description 10/09/2019 8:00 AM EST - 10/09/2019 11:59 PM [facility] Hospital En[place] [address] Chronic obstructive pulmonary disease, unspecified COPD type Discharge Disposition: Home Social History Tobacco Use [...] Inhalational Spacing Device Spcr 2 puffs by [facility].(Non-Drug; Combo Route) route daily. promethazine (PHENERGAN) 25 [...] lung Take 10 mg by mouth daily. 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 14 tablet 1 10/09/2019 01/20/2021 VIBERZI 100 mg TabletIndications:Irr itable bowel syndrome with diarrhea TAKE 1 TABLET BY MOUTH TWICE DAILY 60 tablet 1 07/28/2019 12/16/2019 gabapentin (NEURONTIN) 300 mg Capsule Take 1 capsule by mouth 3 times daily. 90 capsule 12 11/25/2018 06/01/2020 Miscellaneous Medical Supply MiscIndications:PAH (pulmonary artery hypertension) [...] 08/19/2012 07/14/2021 documented as of this encounter Procedure Notes * Lester Pritchard MD - 10/09/2019 12:44 PM ESTAssociated Order(s): PULMONARY FUNCTION TEST Pulmonary Function Test Interpretation FEV1 is reduced. FVC is reduced. The FEV1/FVC ratio is normal. Uncorrected single-breath diffusion capacity for CO was reduced. 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 LESTER PRITCHARD MD documented in this encounter Plan of Treatment Not on file documented as of this encounter Procedures Procedure Name Priority Date/Time Associated Diagnosis Comments COMMON PULMONARY FUNCTION TEST Routine 10/09/2019 12:44 PM EST Chronic obstructive pulmonary disease, unspecified COPD type documented in this encounter Results * Pulmonary Function Testing (10/09/2019 12:44 PM EST) Narrative Lester Pritchard MD - 10/09/2019 12:44 PM EST Lester Pritchard MD ? 10/09/2019 12:45 PM Pulmonary Function Test Interpretation FEV1 is reduced. ??FVC is reduced. ??The FEV1/FVC ratio is normal. Uncorrected single-breath diffusion capacity for CO was reduced. 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 LESTER PRITCHARD MD Osmany Overton MD PFT ORDERABLES documented in this encounter Visit Diagnoses Diagnosis Chronic obstructive pulmonary disease, unspecified COPD type documented in this encounter Care Teams Recordak Operator Relationship Specialty Start Date End Date Cb Florence PA [address] [place] [address] PCP - General Family Medicine 11/13/18 03/29/20 documented as of this encounter
--- OUTSIDE RECORDS SUMMARY | 2024-03-17 18:27 | XMS_ITS | Encounter Summary ---
Author Organization [facility] [place] [address] Care Team Providers Care Radiopharmacist Name Role Phone Cb Florence Primary Care Provider +1- [phone] Encounter Details Date Type Department Care Team (Late st Contact Info) Description 01/20/2021 3:30 PM EDT Office [place] [address] Osmany Holloway MD [facility] [place] [address] Chronic obstructive pulmonary disease, unspecified COPD type; COPD, moderate Social History Tobacco Use Types Packs/Day Years [...] Sign Reading Time Taken Comments Blood Pressure 128/77 01/20/2021 3:48 PM EDT Pulse 97 01/20/2021 3:48 PM EDT Temperature 37.3 ??C (99.1 ??F) 01/20/2021 3:48 PM ED T Respiratory Rate 20 01/20/2021 3:48 PM EDT Oxygen Saturation 93% 01/20/2021 3:48 PM EDT Inhaled Oxygen Concentration - - Weight 84 kg (185 lb 3 oz) 01/20/2021 3:48 PM ED T Height 152.2 cm (4' 11.92) 01/20/2021 3:48 PM E DT Body Mass Index 36.26 01/20/2021 3:48 PM EDT documented in this encounter Progress Notes * Osmany Holloway MD - 01/20/2021 3:30 PM EDT Images from the original note were not included. ? DEPARTMENT ??OF MEDICINE ?SECTION OF PULMONARY AND CRITICAL CARE??MEDICINE Pulmonary and Critical Care Medicine [facility] [place] [address] Outpatient follow-up visit Follow-up 60 y.o. female smoker with hx of dyspnea, diaphragmatic weakness, with cervical nerve compression (s/p surgery) at multiple levels. She developed ARDS 2/2 influenza in 11/28, intubated x about a week, and her course was complicated by ?rhabdomyolysis, PAH, RV strain. She was discharged to a rehab facility several weeks after this episode, and shortly after discharge to home started back smoking. She has been diagnosed with sleep apnea but was not able to tolerate CPAP, and complains ofdaytime fatigue and somnolence. She is using 3 L/min of oxygen at night, but she complains of chronic nasal congestion and does not feel that the nasal cannula deliver much oxygen to her, particularly as she is a mouth breather at night. She is on Symbicort, albuterol by MDI and by nebulizer as needed, and Singulair. She still smokes up to a pack a day, and she also complains of never feeling hungry. At the same time she says that her weight is stable. She endorses frequent cough, productive of creamy sputum, though this is not unusual for her. No sweats, chills, fevers. PAST MEDICAL HISTORY Patient Active Problem List Diagnosis Code ??? Abdominal distention R14.0 ??? Multiple nodules of lung R91.8 ??? Dyspnea R06.00 ??? Biliary colic K80.50 ??? Herniated nucleus pulposus, C6-7 Right, S/P C5-7 ACDF 09/08/13 M50.223 ??? Urinary retention with incomplete bladder emptying- improved R33.9 ??? Cigarette smoker F17.210 ??? Allergic rhinitis J30.9 ??? Depression F32.9 ??? Anxiety F41.9 ??? Esophageal reflux K21.9 ??? Chronic diarrhea K52.9 ??? 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 Hypertension I10 ??? Radiculopathy of lumbar region M54.16 ??? Trochanteric bursitis M70.60 ??? Edema R60.9 ??? COPD, moderate J44.9 ??? Thrush B37.0 ??? Syncope R55 ??? PAH (pulmonary artery hypertension) I27.21 ??? Chronic low back pain M54.5, G89.29 ??? 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 Influenza vaccination contraindicated Z28.09 ??? ARDS (adult respiratory distress syndrome) J80 ??? ANGE (acute kidney injury) N17.9 ??? Influenza due to identified novel H1N1 influenza virus with identified novel H1N1 influenza pneumonia J10.01 ??? Viral sepsis A41.89, B97.89 ??? Acquired hypothyroidism E03.9 MEDICATIONS: Current Outpatient Medications Medication Sig Dispense Refill ??? diazePAM (Valium) 5 mg Tablet TAKE 1 TABLET BY MOUTH TWICE DAILY NEEDED FOR PAIN ??? gabapentin (NEURONTIN) 600 mg Tablet Take 1 tablet by mouth 3 times daily. 90 tablet 5 ??? [employer] Ultra Blue Test Strip Strip USE 1 [...] DIRECTED ON PA ??? Miscellaneous Medical Supply [facility] Face mask for nocturnal O2, and appropriate accessories. 1 each PRN ??? rosuvastatin (CRESTOR) 10 mg Tablet Take 10 mg by mouth nightly. ??? prochlorperazine (COMPAZINE) 10 mg Tablet Take 10 mg by mouth every 8 hours as needed for Nausea. ??? montelukast (SINGULAIR) 10 mg Tablet Take 10 mg by mouth nightly. ??? benzonatate (TESSALON) 100 mg Capsule Take 100 mg by mouth 3 times daily as needed for Cough. ??? guaiFENesin 600 mg Tablet Extended Release 12hr Take 1 tablet by mouth 2 times daily. 60 [id number] ??? SYMBICORT 160-4.5 mcg/actuation HFA Aerosol Inhaler Inhale 2 puffs into the lungs 2 times daily. ??? albuterol (PROVENTIL) 2.5 mg /3 mL (0.083 %) Solution for Nebulization Take 2.5 mg by nebulization every 4 hours as needed for Wheezing. ??? OXYGEN-AIR DELIVERY SYSTEMS ( CLASSIC OXYGEN CONCENTRATOR [facility]) 3 L by [facility].(Non-Drug; Combo Route) route nightly. ??? diphenoxylate-atropine (LOMOTIL) [...] Inhalational Spacing Device Spcr 2 puffs by [facility].(Non-Drug; Combo Route) route daily. ??? promethazine (PHENERGAN) 25 mg tablet Take 25 mg by mouth every 6 hours as needed. ??? cholecalciferol, Vitamin D3, 400 unit tablet Take 400 Units by mouth daily. ??? MULTIVITAMIN ORAL Take 2 tablets by mouth daily. ??? ASCORBATE CALCIUM (VITAMIN C ORAL) Take 1 tablet by mouth daily. ??? eluxadoline (Viberzi) 100 mg Tablet Take 100 mg by mouth daily. (Patient not taking: Reported on 01/20/2021) 30 tablet 1 ??? Viberzi 100 mg Tablet Take 1 tablet by mouth twice daily (Patient not taking: Reported on 01/20/2021) 60 tablet 5 ??? sulfamethoxazole-trimethoprim DS (Bactrim DS) 800-160 mg Tablet Take 1 tablet by mouth 2 times daily. (Patient not taking: Reported on 05/27/2020) 14 tablet 1 ??? baclofen (LIORESAL) 10 mg Tablet Take 10 mg by mouth 3 times daily. Takes 20mg at night ??? chlorpheniramine (CHLOR-TRIMETON) 4 mg Tablet Take [...] tablet Take 10 mg by mouth daily. ??? citalopram (CELEXA) 40 mg tablet Take 1 tablet by mouth daily. (Patient not taking: Reported on01/20/2021) 90 tablet 3 No current facility-administered medications for this visit. ALLERGIES: Pneumococcal vaccine and Albuterol PHYSICAL EXAM Last value Range last 24 hrs Temperature Temp: 37.3 ??C (99.1 ??F) Temp: [37.3 ??C (99.1 ??F)] Heart Rate Heart Rate: 97 Heart Rate: [97] Blood Pressure BP: 128/77 BP: (128)/(77) Respiratory Rate Resp: 20 Resp: [20] SpO2 SpO2: 93 % SpO2: [93 %] WDWN 59 y.o. female in NAD. HEENT-NC/AT; unremarkable Neck-supple without masses or, nodes Chest-diminished breath sounds bilaterally with a few scattered rhonchi Heart-Normal rate and rhythm, without murmers, gallops, or rubs. Abdomen-benign without organomegaly or tenderness Extremities-no cyanosis, clubbing; tr LE edema Skin-no rashes or lesions Musculoskeletal-no joint swelling, tenderness, redness or deformities Neurologic-Nonfocal, without weakness or sensory deficits Lymphatics-unremarkable Pulmonary function studies were performed today and my interpretation is as follows: FVC of 1.96 L (71% of predicted), FEV1 of 1.33 L (60% predicted), FEV1/FVC of 68%. Diffusing capacity 41% of predicted. Resting room air oxygen saturation of 95%. Mild restriction with a decrement in her gas exchange, though neither her volumes nor her diffusing capacity have changed since 2016. IMPRESSION: In summary, this is a 60 y.o. female with a history of restrictive and obstructive lungphysiology, (restriction primarily extraparenchymal), with hx of elevated residual volume, and intermittent sputum production. I discussed sending off sputum culture today for routine bacterial and mycobacterial organisms. Her last echocardiogram estimated PA systolic pressure of 43 mmHg, likely secondary to nocturnal desaturation (intolerant of CPAP) and her modest use of portable oxygen when walking. I discussed this with her, as well as the importance of smoking cessation (which she understands). I will see her back in about 12 months for follow-up with PFTs. Greater than 20 minutes of this 25 minute visit was spent in direct [id number] counseling with the patient regarding the management of her nocturnal (and exertional) desaturation, and working on smoking cessation. documented in this encounter Plan of Treatment Not on file documented as of this encounter Procedures Procedure Name Priority Date/Time Associated Diagnosis Comments HC MYCOBACTERIA CULTURE Routine 01/20/2021 4:40 PM EDT Chronic obstructive pulmonary disease, unspecified COPD type HC SPUTUM CULTURE Routine 01/20/2021 4:4 0 PM EDT Chronic obstructive pulmonary disease, unspecified COPD type documented in this encounter Results * Lower Respiratory Culture Sputum Expectorated (01/20/2021 4:40 PM EDT) Lower Respiratory Culture Few mixed bacterial morphotypes suggestive of normal upper respiratory caryn [facility] Gram Stain Moderate Neutrophils seen Moderate squamous epithelial cells Many mixed bacterial morphotypes suggestive of normal upper respiratory caryn [facility] Sputum Expectorated 01/21/20 4:40 PM EDT 01/20/2021 5:04 PM EDT Narrative Resulting Agency Comment Spec In Lab Osmany Overton MD MICROBIOLOGY - GENE RAL ORDERABLES Performing Organization Address City/[facility]/ZIP Co de Phone Number [facility] [place] [address] * AFB culture Sputum Expectorated (01/20/2021 4:40 PM EDT) Acid Fast Bacilli Culture No Acid Fast Bacilli isolated If active tuberculosis is suspected, the patient should be on [employer] PRECAUTIONS. Call Infection Prevention for assistance if needed. [facility] Acid Fast Stain No Acid Fast Bacilli seen [facility] Sputum Expectorated 01/21/20 4:40 PM EDT 01/20/2021 5:05 PM EDT Narrative Resulting Agency Comment Spec In Lab Osmany Overton MD MICROBIOLOGY - GENE RAL ORDERABLES Performing Organization Address City/[facility]/ZIP Co de Phone Number [facility] [place] [address] documented in this encounter Visit Diagnoses Diagnosis Chronic obstructive pulmonary disease, unspecified COPD type COPD, moderate Chronic airway obstruction, not elsewhere classified documented in this encounter Care Teams Radiopharmacist Relationship Specialty Start Date End Date Cb Florence PA [address] [place] [address] PCP - General Family Medicine 04/08/20 documented as of this encounter
--- OUTSIDE RECORDS SUMMARY | 2024-03-17 18:27 | XMS_ITS | Encounter Summary ---
Author Organization [facility] [place] [address] Care Team Providers Care Machine I Engraver Name Role Phone Cb Florence Primary Care Provider +1- [phone] Encounter Details Date Type Department Care Team (Latest Contact Info) Description 06/01/2020 11:00 AM EDT TH Visit (TeleHealth) [place] [address] Erika Reyez, [facility] [place] [address] Essential tremor; Hand paresthesia, unspecified laterality Social History Tobacco [...] on file documented as of this encounter Patient Instructions * Patient Instructions* Erika Reyez DO - 06/01/2020 11:00 AM EDT Increase Gabapentin for tremors as follows: 300 mg capsules: Week 1: Take 1 in the AM, 1 in the afternoon, and 2 at bedtime Week 2: Take 1 in the AM, 2 in the afternoon, and 2 at bedtime Week 3: Take 2 in the AM, 2 in the afternoon, and 2 at bedtime After you are taking 600 mg three times daily and tolerating, switch to the 600 mg tablets, and take only ONE TABLET THREE TIMES DAILY AND STAY ON THIS. I sent a new prescription to your pharmacy in [place]. Let me know if you have any problems with the increase in dosage. Erika Reyez DO documented in this encounter Progress Notes * Erika Reyez DO - 06/01/2020 11:00 AM EDT Movement Disorders Telehealth Follow-up Note [facility] Poppy Del Cid Raheelthor presents for a telehealth follow-up regarding hand paresthesias as well as tremors.We connected via video, then our connection failed after a few minutes so we connected via telephone. She did have an EMG/ nerve conduction study, and presents to review those results today. She is interested in talking about a medication to help with her tremors. Last visit, we discussed either bryan midone or increasing gabapentin. She is not a good candidate for propranolol secondary to her breathing issues. Problem List: Patient Active Problem List Diagnosis Code ??? [...] sepsis A41.89, B97.89 ??? Acquired hypothyroidism E03.9 Current Medications See updated medication list below. Outpatient Medications Prior to Visit Medication Sig Dispense Refill ??? [employer] Blue Test Strip Strip USE 1 STRIP [...] by mouth daily. 30 tablet 1 ??? Viberzi 100 mg Tablet Take 1 tablet by mouth twice daily (Patient not taking: Reported on 05/27/2020) 60 tablet 5 ??? sulfamethoxazole-trimethoprim DS (Bactrim DS) 800-160 mg Tablet Take 1 tablet by mouth 2 times daily. (Patient not taking: Reported on 05/27/2020) 14 tablet 1 ??? gabapentin (NEURONTIN) 300 mg [...] tablet by mouth 2 times daily. 60 [id number] ??? baclofen (LIORESAL) 10 mg Tablet Take [...] CLASSIC OXYGEN CONCENTRATOR MISC) 3 L by [facility].(Non-Drug; Combo Route) route nightly. ??? chlorpheniramine (CHLOR-TRIMETON) 4 mg Tablet Take 4 mg by mouth every 6 hours as needed for Allergies. ??? diphenoxylate-atropine (LOMOTIL) 2.5-0.025 mg Tablet Take [...] Inhalational Spacing Device Spcr 2 puffs by [facility].(Non-Drug; Combo Route) route daily. ??? fluticasone (FLONASE) 50 mcg/actuation nasal spray USE ONE SPRAY IN EACH NOSTRIL TWICE DAILY (Patient not taking: Reported on 04/14/2020) 1 each 3 ??? ipratropium (ATROVENT) 0.06 % nasal spray USE TWO SPRAYS BY NASAL ROUTE 4 TIMES DAILY (Patient not taking: No sig reported) 15 mL 2 ??? promethazine (PHENERGAN) 25 mg tablet Take 25 mg by mouth every 6 hours as needed. ??? cholecalciferol, Vitamin D3, 400 unit tablet Take 400 Units by mouth daily. ??? MULTIVITAMIN ORAL Take 2 tablets by mouth daily. ??? ASCORBATE CALCIUM (VITAMIN C ORAL) Take 1 tablet by mouth daily. ??? loratadine (CLARITIN) 10 mg tablet Take 10 mg by mouth daily. ??? citalopram (CELEXA) 40 mg tablet Take 1 tablet by mouth daily. 90 tablet 3 No facility-administered medications prior to visit. Drug Allergies and Adverse Drug Reactions See updated allergy/ADR list below. Pneumococcal vaccine and Albuterol Review of Systems + tremors + hand tingling + sinus difficulty (scheduled for surgery tomorrow) PHYSICAL EXAMINATION (over telehealth) General Physical Examination Appearance: The patient is healthy-appearing and appears of stated age. she appears well-nourished and comfortable. Head: Atruamatic. Normocephalic. Neurological Examination Mental status: The patient is alert, calm, oriented x 3 Cranial nerves: Speech clear and fluent. Face appeared symmetric. Hearing intact. Eye movements intact. Motor: no apparent focality EMG/NCS - Reviewed. Normal. No signs of radiculopathy, plexopathy, or neuropathy ASSESSMENT AND PLAN Poppy Mclaughlin is a pleasant 59 y.o. yr old female who appears to have a mild essential tremor, likely exacerbated by COPD medications/breathing medications - discussed with her. She also c/o paraesthesias in her hands. EMG/NCS was normal -this was discussed with her today. Given the paresthesias, I feel that the best option for treatment of her tremors is to increase the gabapentin. She is alread y taking 300 mg 3 times a day. We will slowly titrate up to 600 mg 3 times daily. She will do this by increasing by 300 mg weekly to a goal dose of 600 mg 3 times daily. I have written out instructions for her. If she experiences any side effects she will let me know. I have given her a new prescription to the [facility] pharmacy in [place] for his 600 mg tablets. She can follow-up with me in 1 year. All questions were answered. The patient was told to call with any additional questions or concernsthat should arise in the interim. Erika Reyez D.O. Movement Disorders [place] [address] TEL: [phone] FAX: [phone] [email or web address] documented in this encounter Plan of Treatment Not on file documented as of this encounter Visit Diagnoses Diagnosis Essential tremor Essential and other specified forms of tremor Hand paresthesia, unspecified laterality documented in this encounter Care Teams Machine I Engraver Relationship Specialty Start Date End Date Cb Florence PA [address] [place] [address] PCP - General Family Medicine 04/08/20 documented as of this encounter
--- OUTSIDE RECORDS SUMMARY | 2024-03-17 18:27 | XMS_ITS | Encounter Summary ---
Author Organization [facility] [address] Care Team Providers Care Security Engineer Name Role Phone Cb Florence Primary Care Provider +1- [phone] Reason for Visit * Reason Onset Date Comments TeleHealth 05/31/2020 apt 06/01 Encounter Details Date Type Department Care Team (Late st Contact Info) Description 05/31/2020 Tele[place] [address] [facility] [place] [place] [address] TeleHealth (apt 06/01) Social History Tobacco Use Types Packs/Day Years [...] encounter Miscellaneous Notes * Telephone Encounter - Karissa Gramajo CCMA - 05/31/2020 2:03 PM EDT Unable to reach patient to review medications and allergies prior to upcoming tele- appointment scheduled with Neurology provider. documented in this encounter Plan of Treatment Not on file documented as of this encounter Visit Diagnoses Not on filedocumented in this encounter Care Teams Security Engineer Relationship Specialty Start Date End Date Cb Florence PA [address] [place] [address] PCP - General Family Medicine 04/08/20 documented as of this encounter
--- OUTSIDE RECORDS SUMMARY | 2024-03-17 18:27 | XMS_ITS | Encounter Summary ---
[place] [address] Care Team Providers Care Spring Clipper Name Role Phone Cb Florence Primary Care Provider +1- [phone] Encounter Details Date Type Department Care Team (Late st Contact Info) Description 03/16/2020 Telephone [place] [address] Gardenia Bueno CMA GASTROENTEROLOGY DEPT Social History Tobacco Use Types Packs/Day Years [...] encounter Miscellaneous Notes * Telephone Encounter - Gardenia Bueno CMA - 03/16/2020 3:13 PM EDT Gastroenterology / Hepatology at [facility]?[address]?[place] [address]? Subscriber Insurance: [employer] ?Fax: ? Physician:?Osmany Keller ? Return ?? Pharmacy:?[facility] ?? Phone:??[phone] Fax:??[phone] ?? Medication Requested: ??Viberzi ?? Strength:??100 mg?Frequency: ??BID ?? Disp:60? Refills: 5 ?? Currently taking: yes ?? Diagnosis for this medication: IBS-D ?? ICD-10 code: K58.0 ? Prior medications trialed in this patient: ?xifaxan ?? lomotil ?? imodium ? Medication: Outcome/Adverse Reactions:??treatment failure ?? Decision:??approved ?? Tracking number/Case number/Reference number: ?[id number] ? Effective date: ??End: 09/16/2020 documented in this encounter Plan of Treatment Not on file documented as of this encounter Visit Diagnoses Not on filedocumented in this encounter Care Teams Spring Clipper Relationship Specialty Start Date End Date Cb Florence PA [address] [place] [address] PCP - General Family Medicine 11/13/18 03/29/20 documented as of this encounter
--- OUTSIDE RECORDS SUMMARY | 2024-03-17 18:27 | XMS_ITS | Encounter Summary ---
Author Organization [facility] [place] [address] Care Team Providers Care Bread Jockey Name Role Phone Cb Florence Primary Care Provider +1- [phone] Reason for Visit * Reason Comments Medication Refill Encounter Details Date Type Department Care Team (Late st Contact Info) Description 02/14/2020 Refill Internal Medicine at [address] [address] Vito Hartman MD [facility] [place] [address] Social History Tobacco Use Types Packs/Day Years [...] on filedocumented in this encounter Care Teams Bread Jockey Relationship Specialty Start Date End Date Cb Florence PA [address] [place] [address] PCP - General Family Medicine 04/08/20 documented as of this encounter
--- OUTSIDE RECORDS SUMMARY | 2024-03-17 18:27 | XMS_ITS | Encounter Summary ---
Author Organization [facility] [address] Care Team Providers Care Finisher Cold Rolling Name Role Phone Cb Florence Primary Care Provider +1- [phone] Reason for Visit * Reason Comments Medication Refill Encounter Details Date Type Department Care Team (Late st Contact Info) Description 07/26/2019 Ref[place] [address] Osmany Keller MD [facility] [place] [address] Irritable bowel syndrome with diarrhea Social History [...] syndrome documented in this encounter Care Teams Finisher Cold Rolling Relationship Specialty Start Date End Date Cb Florence PA [address] [place] [address] PCP - General Family Medicine 11/13/18 03/29/20 documented as of this encounter
--- OUTSIDE RECORDS SUMMARY | 2024-03-17 18:27 | XMS_ITS | Encounter Summary ---
[place] [address] Care Team Providers Care Sash Sticker Name Role Phone Cb Florence Primary Care Provider +1- [phone] Encounter Details Date Type Department Care Team (Late st Contact Info) Description 11/03/2019 Telephone [place] [address] Beth Riggs Social History Tobacco Use Types Packs/Day Years [...] encounter Miscellaneous Notes * Telephone Encounter - Beth Riggs - 11/03/2019 11:28 AM EDT Patient called to schedule a F/U visit in march with PFTs. Let patient know we are currently not scheduling out that far and will call her when we have that schedule. documented in this encounter Plan of Treatment Not on file documented as of this encounter Visit Diagnoses Not on filedocumented in this encounter Care Teams Sash Sticker Relationship Specialty Start Date End Date Cb Florence PA [address] [place] [address] PCP - General Family Medicine 11/13/18 03/29/20 documented as of this encounter
--- OUTSIDE RECORDS SUMMARY | 2024-03-17 18:27 | XMS_ITS | Encounter Summary ---
Author Organization [facility] [place] [address] Care Team Providers Care Fishing Tackle Repairer Name Role Phone Cb Florence Primary Care Provider +1- [phone] Encounter Details Date Type Department Care Team (Late st Contact Info) Description 10/08/2019 Orders [place] [address] Osmany Holloway MD [facility] [place] [address] Chronic obstructive pulmonary disease, unspecified COPD type (Primary Dx) Social History Tobacco Use Types Packs/Day Years [...] documented as of this encounter Results * Pulmonary Function Testing [...] Diagnosis Chronic obstructive pulmonary disease, unspecified COPD type- Primary Chronic obstructive pulmonary disease, unspecified COPD type documented in this encounter Care Teams Fishing Tackle Repairer Relationship Specialty Start Date End Date Cb Florence PA [address] [place] [address] PCP - General Family Medicine 11/13/18 03/29/20 documented as of this encounter
--- OUTSIDE RECORDS SUMMARY | 2024-03-17 18:27 | XMS_ITS | Encounter Summary ---
Author Organization [facility] [place] [address] Care Team Providers Care Desktop Publishing Specialist Name Role Phone Cb Florence Primary Care Provider +1- [phone] Reason for Visit * Reason Comments Follow-up Encounter Details Date Type Department Care Team (Late st Contact Info) Description 10/09/2019 9:00 AM EST Office [place] [address] Osmany Holloway MD [facility] [place] [address] Thrush, oral; COPD, moderate; Gastroesophageal reflux disease, esophagitis presence not specified Social History Tobacco Use Types Packs/Day Years [...] Sign Reading Time Taken Comments Blood Pressure 174/94 10/09/2019 8:52 AM EST Pulse 87 10/09/2019 8:52 AM EST Temperature - - Respiratory Rate 20 10/09/2019 8:52 AM EST Oxygen Saturation 97% 10/09/2019 8:52 AM EST Inhaled Oxygen Concentration - - Weight 78.8 kg (173 lb 11.6 oz) 10/09/2019 8:52 AM EST Height 153.7 cm (5' 0.51) 10/09/2019 8:52 AM ES T Body Mass Index 33.36 10/09/2019 8:52 AM EST documented in this encounter Progress Notes * Osmany Holloway MD - 10/09/2019 9:00 AM EST Images from the original note were not included. ? DEPARTMENT ??OF MEDICINE ?SECTION OF PULMONARY AND CRITICAL CARE??MEDICINE Pulmonary and Critical Care Medicine [facility] [place] [address] Outpatient follow-up visit Follow-up 59 y.o. female smoker with hx of dyspnea, diaphragmatic weakness, with cervical nerve compression (s/p surgery) at multiple levels. She developed ARDS 2/2 influenza in 11/28, intubated x about a week, and her course was complicated by ?rhabdomyolysis, PAH, RV strain. She was discharged to a rehab facility several weeks after this episode, and shortly after discharge to home started back smoking, up to a pack a day. About a month ago (or more) developed URI, cough productive of purulentsputum. She has been diagnosed with sleep apnea but was not able to tolerate CPAP, and complains ofdaytime fatigue and somnolence. PAST MEDICAL HISTORY Patient Active Problem List [...] Outpatient Medications Medication Sig Dispense Refill ??? VIBERZI 100 mg Tablet TAKE 1 TABLET BY MOUTH TWICE DAILY 60 tablet 1 ??? gabapentin (NEURONTIN) 300 mg [...] tablet by mouth 2 times daily. 60 [id number] ??? baclofen (LIORESAL) 10 mg Tablet Take by mouth 3 times daily. ??? SYMBICORT 160-4.5 mcg/actuation HFA Aerosol Inhaler Inhale 2 puffs into the lungs 2 times daily. ??? albuterol (PROVENTIL) 2.5 mg /3 mL (0.083 %) Solution for Nebulization Take 2.5 mg by nebulization every 4 hours as needed for Wheezing. ??? OXYGEN-AIR DELIVERY SYSTEMS ( CLASSIC OXYGEN CONCENTRATOR MISC) 3 L by [facility].(Non-Drug; Combo Route) route nightly. ??? chlorpheniramine (CHLOR-TRIMETON) [...] Inhalational Spacing Device Spcr 2 puffs by [facility].(Non-Drug; Combo Route) route daily. ??? fluticasone (FLONASE) 50 mcg/actuation nasal spray USE ONE SPRAY IN EACH NOSTRIL TWICE DAILY (Patient taking differently: USE TWO SPRAYS IN EACH NOSTRIL EACH MORNING) 1 each 3 ??? ipratropium (ATROVENT) 0.06 % nasal spray USE TWO SPRAYS BY NASAL ROUTE 4 TIMES DAILY (Patient taking differently: USE TWO SPRAYS BY NASAL ROUTE 3 TIMES DAILY) 15 mL 2 ??? promethazine (PHENERGAN) 25 mg tablet Take 25 mg by mouth every 6 hours as needed. ??? cholecalciferol, Vitamin D3, 400 unit tablet Take 400 Units by mouth daily. ??? MULTIVITAMIN ORAL Take 2 tablets by mouth daily. ??? ASCORBATE CALCIUM (VITAMIN C ORAL) Take 2 tablets by mouth daily. ??? loratadine (CLARITIN) 10 mg tablet Take 10 mg by mouth daily. ??? citalopram (CELEXA) 40 mg tablet Take 1 tablet by mouth daily. 90 tablet 3 ??? Miscellaneous Medical Supply [facility] Face mask for nocturnal O2 (Patient not taking: Reported on 08/21/2017) 1 each PRN No current facility-administered medications for this visit. ALLERGIES: Pneumococcal vaccine and Albuterol PHYSICAL EXAM Last value Range last 24 hrs Temperature Temp: -- Heart Rate Heart Rate: 87 Heart Rate: [87] Blood Pressure BP: (!) 174/94 BP: (174)/(94) Respiratory Rate Resp: 20 Resp: [20] SpO2 SpO2: 97 % SpO2: [97 %] WDWN 59 y.o. female in NAD. HEENT-NC/AT; unremarkable Neck-supple without masses or, nodes Chest-slightly diminished breath sounds but otherwise clear. Heart-Normal rate and rhythm, without murmers, gallops, or rubs. Abdomen-benign without organomegaly or tenderness Extremities-no cyanosis, clubbing; 1-2+ LE edema Skin-no rashes or lesions Musculoskeletal-no joint swelling, tenderness, redness or deformities Neurologic-Nonfocal, without weakness or sensory deficits Lymphatics-unremarkable PFTs were performed today and my interpretation is as follows: FVC 2.87L (76% pred); FEV1 1.59L (69% pred); FEV1/FVC 73%. Diffusing capacity of 45% pred. C/W combined obstructive and restrictive lungdisease, with significant improvement in her spirometry but significant drop in her diffusing capacity. IMPRESSION: In summary, this is a 59 y.o. female with restrictive and obstructive lung physiology, (restriction primarily extraparenchymal), with hx of elevated residual volume, intermittent sputum production. She had influenza last winter and developed severe ARDS requiring intubation, ultimately resulting in a prolonged rehab. Afterwards she did well, though despite an extended period of time without smoking, started back not long after discharge from rehab facility. She currently smoking 1 pack a day again, and continues to have mild ongoing chronic bronchitis. Due to her recent URI, her mild chronic bronchitis became less mild, and despite 1 course of antibiotic continues to cough quite productively with rather dark phlegm. I had her give me a sample, which she did without difficulty,and we will send that off for culture. She has had issues with recurrent thrush so I suggested she drop to 1 puff twice daily of the Symbicort (and gave her spacer with instructions on proper usage, as well as proper gargling after her doses), and prescribed fluconazole 150 mg x 2 (1 now and 1 at the tail end of her antibiotic course). Her airflow is currently very good both clinically and on pulmonary function so I suggested she might also benefit from holding the Spiriva (which may be drying out her secretions), and suggested a one-week course of Bactrim 1 twice daily. We will see her back in 4 to 6 months with repeat pulmonary function studies, since I suspect the drop in diffusing capacity is artifactual (but needs follow-up), and she will call me for any problems between now and then. She did have an influenza vaccine this year. Follow-up with PCP for blood pressure control. Greater than 20 minutes of this 25-minute visit was spent in direct flft-of-oyrs counseling with the patient regarding the management of her chronic productive cough with acute exacerbation, as well as discussing smoking cessation, methods and importance. documented in this encounter Plan of Treatment Not on file documented as of this encounter Procedures Procedure Name Priority Date/Time Associated Diagnosis Comments HC SPUTUM CULTURE Routine 10/09/2019 10: 27 AM EST COPD, moderate documented in this encounter Results * Pulmonary Function Testing (04/08/2020 5:53 PM EDT) Narrative Lester Pritchard MD - 04/08/2020 5:53 PM EDT Lester Pritchard MD ? 04/08/2020 ??5:56 PM Pulmonary Function Test Interpretation Impression: Moderate obstructive ventilatory defect (FEV1 60-69% predicted) Reduced FVC suggests possible restrictive ventilatory defect. This could be evaluated by lung volume measurements. Uncorrected single-breath diffusion capacity for carbon monoxide (DLCO) was reduced. This occurs when there is a barrier to gas diffusion at the alveolar-capillary interface. LESTER PRITCHARD MD 04/08/2020 Osmany Overton MD PFT ORDERABLES * Lower Respiratory Culture Sputum Expectorated (10/09/2019 10:27 AM EST) Lower Respiratory Culture Many mixed bacterial morphotypes suggestive of normal upper respiratory caryn [facility] Gram Stain Moderate squamous epithelial cells seen Many Neutrophils seen Many normal upper respiratory caryn [facility] Sputum specimen (specimen) 10/09/2019 10:27 AM EST 10/09/2019 12:22 PM EST Narrative Resulting Agency Comment Spec In Lab Osmany Ovreton MD MICROBIOLOGY - GENE [facility] ORDERABLES [facility] [place] [address] documented in this encounter Visit Diagnoses Diagnosis Thrush, oral Candidiasis of mouth COPD, moderate Chronic airway obstruction, not elsewhere classified Gastroesophageal reflux disease, esophagitis presence not specified COPD, moderate Chronic airway obstruction, not elsewhere classified documented in this encounter Care Teams Desktop Publishing Specialist Relationship Specialty Start Date End Date Cb Florence PA [address] [place] [address] PCP - General Family Medicine 11/13/18 03/29/20 documented as of this encounter
--- OUTSIDE RECORDS SUMMARY | 2024-03-17 18:27 | XMS_ITS | Encounter Summary ---
Author Organization [facility] [place] [address] Care Team Providers Care Senior Software Architect Name Role Phone Cb Florence Primary Care Provider [phone] Reason for Visit * Consultation (Routine) - Specialty Diagnoses / Procedures Referred By Chava alejo Referred To Contact Neurology Diagnoses Unspecified abnormal involuntary movements Cb Florence PA [address] [place] [address] [facility] Neurology [address] [place] [phone] Referral ID Status Reason Start Date Expiration Date V isits Requested Visits Authorized [id number] Consult, Test & Treat PCP Updated and/or Approved 03/10/2020 03/10/2021 6 6 Encounter Details Date Type Department Care Team (Late st Contact Info) Description 04/14/2020 10:00 AM EDT [place] [address] Erika Reyez, [facility] [address] Essential tremor; Paresthesias Social History Tobacco Use Types Packs/Day Years [...] Sign Reading Time Taken Comments Blood Pressure 148/98 04/14/2020 9:40 AM EDT Pulse 87 04/14/2020 9:40 AM EDT Temperature - - Respiratory Rate - - Oxygen Saturation - - Inhaled Oxygen Concentration - - Weight 79.4 kg (175 lb) 04/14/2020 9:40 AM EDT Height 154.9 cm (5' 1) 04/14/2020 9:40 AM EDT Body Mass Index 33.07 04/14/2020 9:40 AM EDT documented in this encounter Patient Instructions * Patient Instructions* Erika Reyez DO - 04/14/2020 10:00 AM EDT Your tremor is most consistent with an essential tremor. It is exacerbated by your breathing issues/medications. There are no Parkinson's features. You can try a medication like Primidone - or increase Gabapentin. You cannot take Propranolol because your lung function is poor. You need an EMG/NCS to help determine why your hands are so tingly. Erika Reyez DO documented in this encounter Progress Notes * Erika Reyez DO - 04/14/2020 10:00 AM EDT Movement Disorders Consultation Note [facility] Reason for Consultation It is my pleasure to perform a neurologic consultation at the request of KIARA Villanueva, on Poppy Mclaughlin, who is a 59 y.o. right handed female for abnormal movements. I reviewed her medical records provided. HISTORY History of Present Illness Poppy Mclaughlin states that she had weird sensations in her hands and also abnormal movements. She states that her hands feels like pins and needles, all over the entire surface. This involves onlythe hands, on the dorsum and palmar surface. She states her hands feel numb and tingling. She thinks that this is the whole hand. She has a hx of cervical fusion. She does not have neck pain. No radicular type symptoms. She does not work, on disability. No repetitive type motions of her hands that she is aware of, no injuries that she is aware of. Going on for about 1 year, maybe getting worse, very bothersome to her. She does not endorse tingling of the toes. She states that her hands also tend to shake. She states that this has been going on for about 1 year. This seems to be getting worse over time. She thinks that her handwriting is sloppier. She feels that her tremor is a daily occurrence and not necessarily related to her inhalers/breathing medications. She has not tried any medications for the tremor. There is no family hx of tremor. Past Medical History Past Medical History: Diagnosis Date ??? Allergy [...] ??? Skin disorder ?? acne Past Surgical History Past Surgical History: Procedure Laterality Date ??? PRG UNLISTED DIAGNOSTIC GASTROENTEROLOGY PROCEDURE [address] jimenez ??? PRO ALLOGRAFT FOR SPINE SURGERY ONLY STRUCTURAL 09/08/2013 ALLOGRAFT FOR SPINE SURGERY ONLY; STRUCTUAL performed by Rios Acuna MD at [facility] MAIN OR ??? PRO ANTERIOR INSTRUMENTATION 2-3 VERTEBRAL SEGMENTS 09/08/2013 @ANT. SPINAL INSTRUMENTATION, 2-3 VERTEBRA, SEGMENTED performed by Rios Acuna MD at [facility] AGAPITO ??? PRO ARTHRD ANT INTERDY CERVCL BELW C2 EA ADDL NTRSPC 09/08/2013 @ARTHRODESIS ANT INTERBDY CERVCL BELOW C2 EA ADDL INTRSPACE performed by Rios Acuna MD at [facility] MAIN OR ??? PRO ARTHRODESIS, ANT INTERBODY,DECOMPRESSION; CERVICAL BELOW C2 09/08/2013 ARTHRODESIS, ANT INTERBODY,DECOMPRESSION; CERVICAL BELOW C2 performed by Rios Acuna MD at [facility] MAIN OR ??? PRO DECOMPRESS SPINAL CORD, 1 SEG Right 08/31/2014 TRANSPEDICULAR LUMBAR DECOMPRESSION SPINAL CORD,EQUINA & NERVE ROOTS, ONE LVL. performed by Rios Acuna MD at [facility] MAIN OR ??? PRO LAP, CHOLECYSTECTOMY/GRAPH 11/04/2012 LAPAROSCOPIC CHOLECYSTECTOMY WITH CHOLANGIOGRAM performed by Abel Carlton MD at [facility] MAIN OR ??? PRO UPPER GI ENDOSCOPY, BIOPSY N/A 10/26/2015 UPPER GASTROINTESTINAL ENDOSCOPY,WITH BIOPSY SINGLE OR MULTIPLE performed by Apolinar Sepulveda MDat [facility] ENDOSCOPY ??? PRO UPPER GI ENDOSCOPY, DIAGNOSTIC N/A 10/26/2015 EGD, UPPER GI ENDOSCOPY performed by Apolinar Sepulveda MD at [facility] ENDOSCOPY ??? PRO UPPER GI ENDOSCOPY, DIAGNOSTIC N/A 10/02/2016 EGD, UPPER GI ENDOSCOPY performed by Justin Starkey MD at [facility] ENDOSCOPY ??? PRO UPPER GI ENDOSCOPY, W/DIR SUBMUC INJ 11/05/2017 EGD, W DIRECTED SUBMUCOSAL INJECTION(S) performed by Osmany Keller MD at [facility] ENDOSCOPY Current Medications See updated medication list below. Medications 04/14/20 0922 Medication Sig Taking? eluxadoline (Viberzi) 100 mg Tablet Take 100 mg by mouth daily. Yes Viberzi 100 mg Tablet Take 1 tablet by mouth twice daily Yes gabapentin (NEURONTIN) 300 mg Capsule Take 1 capsule by mouth 3 times daily. Yes rosuvastatin (CRESTOR) 10 mg Tablet Take 10 mg by mouth nightly. Yes prochlorperazine (COMPAZINE) 10 mg Tablet Take 10 mg by mouth every 8 hours as needed for Nausea. Yes montelukast (SINGULAIR) 10 mg Tablet Take 10 mg by mouth nightly. Yes benzonatate (TESSALON) 100 mg Capsule Take 100 mg by mouth 3 times daily as needed for Cough. Yes guaiFENesin 600 mg Tablet Extended Release 12hr Take 1 tablet by mouth 2 times daily. Yes baclofen (LIORESAL) 10 mg Tablet Take 10 mg by mouth 3 times daily. Takes 20mg at night Yes SYMBICORT 160-4.5 mcg/actuation HFA Aerosol Inhaler Inhale 2 puffs into the lungs 2 times daily. Yes albuterol (PROVENTIL) 2.5 mg /3 mL (0.083 %) Solution for Nebulization Take 2.5 mg by nebulization every 4 hours as needed for Wheezing. Yes OXYGEN-AIR DELIVERY SYSTEMS ( CLASSIC OXYGEN CONCENTRATOR MISC) 3 L by [facility].(Non-Drug; Combo Route) route nightly. Yes diphenoxylate-atropine (LOMOTIL) 2.5-0.025 mg Tablet Take 1 tablet by mouth 4 times daily. DO NOT restarted this unless you are having diarrhea. Patient taking differently: Take 1 tablet by mouth as needed. DO NOT restarted this unless you are having diarrhea. Yes albuterol (PROVENTIL HFA;VENTOLIN HFA) 90 mcg/actuation HFA Aerosol Inhaler Inhale 2 puffs into thelungs every 4 hours as needed. Use with spacer Yes acetaminophen (TYLENOL) 500 mg Tablet Take 1,000 mg by mouth every 6 hours as needed. Yes ipratropium (ATROVENT) 0.06 % nasal spray USE TWO SPRAYS BY NASAL ROUTE 4 TIMES DAILY Patient taking differently: as needed. Yes promethazine (PHENERGAN) 25 mg tablet Take 25 mg by mouth every 6 hours as needed. Yes cholecalciferol, Vitamin D3, 400 unit tablet Take 400 Units by mouth daily. Yes MULTIVITAMIN ORAL Take 2 tablets by mouth daily. Yes ASCORBATE CALCIUM (VITAMIN C ORAL) Take 1 tablet by mouth daily. Yes citalopram (CELEXA) 40 mg tablet Take 1 tablet by mouth daily. Yes sulfamethoxazole-trimethoprim DS (Bactrim DS) 800-160 mg Tablet Take 1 tablet by mouth 2 times daily. [facility] Face mask for nocturnal O2 Patient not taking: Reported on 08/21/2017 chlorpheniramine (CHLOR-TRIMETON) 4 mg Tablet Take 4 mg by mouth every 6 hours as needed for Allergies. Inhalational Spacing Device Spcr 2 puffs by [facility].(Non-Drug; Combo Route) route daily. fluticasone (FLONASE) 50 mcg/actuation nasal spray USE ONE SPRAY IN EACH NOSTRIL TWICE DAILY Patient not taking: Reported on 04/14/2020 loratadine (CLARITIN) 10 mg tablet Take 10 mg by mouth daily. Drug Allergies and Adverse Drug Reactions See updated allergy/ADR list below. Pneumococcal vaccine and Albuterol Family History Family History Problem Relation Age of Onset ??? Cancer Father ??? Coronary Artery Disease Father ??? Diabetes Father ??? Heart Disease Father ??? High Cholesterol Father ??? Coronary Artery Disease Maternal Grandfather ??? Coronary Artery Disease Mother Social History Social History Socioeconomic History ??? Marital status: Spouse name: None ??? Number of children: None ??? Years of education: None ??? Highest education level: None Occupational History ??? None Social Needs ??? Financial resource strain: None ??? Food insecurity Worry: None Inability: None ??? Transportation needs Medical: None Non-medical: None Tobacco Use ??? Smoking status: Current Every Day Smoker Packs/day: 1.00 Years: 20.00 Pack years: 20.00 Types: Cigarettes ??? Smokeless tobacco: Never Used ??? Tobacco comment: pt would like to speak with someone about quiting. Tobacco cessation packet given Substance and Sexual Activity ??? Alcohol use: No Comment: quit 2011 ??? Drug use: Not Currently Types: Narcotics Comment: pain meds 3x day ??? Sexual activity: None Comment: question Lifestyle ??? Physical activity Days per week: None Minutes per session: None ??? Stress: None Relationships ??? Social connections Talks on phone: None Gets together: None Attends episcopalian service: None Active member of club or organization: None Attends meetings of clubs or organizations: None Relationship status: None ??? Intimate partner violence Fear of current or ex partner: None Emotionally abused: None Physically abused: None Forced sexual activity: None Other Topics Concern ??? Abuse or Threat: Physical, Sexual, Verbal No ??? Abuse or Threat: Help requested by patient No Social History Narrative ??? None Review of Systems Review of Systems Constitutional: Positive for malaise/fatigue. Respiratory: Positive for sputum production, shortness of breath and wheezing. Smokes ppd Musculoskeletal: Positive for neck pain. Neurological: Positive for tremors. Psychiatric/Behavioral: Positive for depression. The patient is nervous/anxious and has insomnia. PHYSICAL EXAMINATION General Physical Examination Appearance: The patient is healthy appearing and who appears of stated age. she appears well-nourished and comfortable. Vital Signs: Recorded by the nurse as listed above. Head: Atruamatic. Normocephalic. Neck: Supple with normal range of movements. No cervical muscle spasm or tenderness. Carotid arteries: Normal pulsations without bruits. Heart: Normal heart sounds without murmurs. Lungs: Clear to auscultation in all will Extremities: Normal limb color and temperature; normal radial pulses; no pedal or ankle edema. Skin: Without rash or lesions Neurological Examination Mental status: The patient is alert, calm, oriented x 3, and exhibits normal language function, attention, concentration, and praxis. Short-term and long- term memory are normal. Fund of knowledge is normal for educational level. Cranial nerves: Pupils are symmetric, equal, round, and normally reactive to light. Visual will are full in all will. Eye movements are conjugate and full without nystagmus. Facial movements and facial sensation are normal. Hearing is normal bilaterally. Tongue and uvula are midline. Speech is clear and fluent. Shoulder shrug and head movements are normal. Motor: Limb muscles show no weakness, atrophy, fasciculations, myoclonus, or drift. She has a mild postural and action tremor present b/l, mildly worse on the right. There is tremulousness present with archimedes spiral drawing. There is no bradykinesia, rigidity, or tremor at rest. Sensory: Limbs show normal sensation bilaterally to touch, pin, vibration, and temperture stimuli. Cerebellar: [id number] test and heel to awan of upper and lower extremities are normal without cerebellar ataxia or dysmetria Gait and station: Normal stance; fairly normal gait - slightly slow; tandem gait is performed reasonably well; Romberg negative. Deep Tendon reflexes: Normal throughout symmetrically in the upper as well as lower extremities RADIOLOGY AND LABORATORY Radiology: No brain imaging has been done. Last C spine MRI that I see in our system is from 2012: Multilevel degenerative disc changes. Significant improvement in the disc extrusion on the right at C6-C7. Moderate foraminal narrowing bilaterally at C5-C6. Laboratory: Lab Results Component Value Date WBC 10.0 (H) 11/25/2018 HGB 10.5 (L) 11/25/2018 HCT 33.5 (L) 11/25/2018 MCV 86.1 11/25/2018 PLATELET 347 11/25/2018 Lab Results Component Value Date NA 138 11/25/2018 K 4.4 11/25/2018 CL 104 11/25/2018 CO2 19 (L) 11/25/2018 BUN 21 (H) 11/25/2018 CREATININE 0.91 11/25/2018 GLUCOSE 117 11/25/2018 GLUCFASTING 126 (H) 11/16/2018 CALCIUM 9.4 11/25/2018 ESTGFR 71 11/25/2018 Lab Results Component Value Date [id number] 237 11/15/2018 Lab Results Component Value Date TSH 0.18 (L) 11/13/2018 Lab Results Component Value Date SFOLATE 3.1 (L) 11/15/2018 ASSESSMENT AND PLAN Poppy Mclaughlin is a pleasant 59 y.o. female who appears to have underlying essential tremor (marked by postural and action tremor R hand more affected than L hand), which is likely exacerbated by several of her medications which she uses for COPD. I discussed this with her today. The tremor is bothersome to her, but she does not want to begin a medication at this point, such as primidone, or increase Gabapentin until she thinks about this further and gets her lab work back. She will let me know after she reviews the information I gave her today. She is not a good candidate for propanolol as discussed given her breathing issues. Regarding the tingling in her b/l hands, I will set up an EMG/NCS to help pin-point what the problem may be before proceeding with a more extensive work-up. This tingling does not seem to follow a particular dermatome on exam today, and it does not follow a neuropathy type pattern on exam. It is not exactly consistent with CTS per her exam, as it involves alsothe 4th and 5th digits, so I will wait for more electrodiagnostic information. We will talk via telemed after the testing, and to see if she would like to begin a medication for her tremor. All questions were answered. The patient was told to call with any additional questions or concernsthat should arise in the interim. Erika Reyez D.O. Movement Disorders [place] [address] TEL: [phone] FAX: [phone] [email or web address] documented in this encounter Plan of Treatment Not on file documented as of this encounter Visit Diagnoses Diagnosis Essential tremor Essential and other specified forms of tremor Paresthesias Disturbance of skin sensation documented in this encounter Care Teams Senior Software Architect Relationship Specialty Start Date End Date Cb Florence PA [address] [place] [address] PCP - General Family Medicine 04/08/20 documented as of this encounter
--- OUTSIDE RECORDS SUMMARY | 2024-03-17 18:27 | XMS_ITS | Encounter Summary ---
[place] [address] Care Team Providers Care Production Intern Name Role Phone Cb Florence Primary Care Provider [phone]- [phone] Reason for Referral * Diagnostic Test (Routine) - Closed Specialty Diagnoses / Procedures Referred By Contac t Referred To Contact Cardiology Diagnoses PAH (pulmonary artery hypertension) Procedures Echocardiogram Transthoracic([facility]) Osmany Holloway MD [facility] [place] [address] [facility] [place] [address] Referral ID Status Reason Start Date Expiration Date V isits Requested Visits Authorized [id number] Closed Specialty Service Requested 04/18/2020 04/18/2021 1 1 Reason for Visit * Diagnostic Test (Routine) - Closed Specialty Diagnoses / Procedures Referred By Contac t Referred To Contact Cardiology Diagnoses PAH (pulmonary artery hypertension) Procedures Echocardiogram Transthoracic([facility]) Osmany Holloway MD [facility] [place] [address] [facility] [place] [address] Referral ID Status Reason Start Date Expiration Date V isits Requested Visits Authorized [id number] Closed Specialty Service Requested 04/18/2020 04/18/2021 1 1 Encounter Details Date Type Department Care Team (Latest Contact Info) Description 07/29/2020 12:43 PM EST - 07/29/2020 2:18 PM EST Hospital Encounter Non-Invasive Cardiology Lab Formerly [facility], [facility] [address] [place] [address] Osmany Holloway MD [facility] DR PULMONARY MEDICINE [place] [id number] PAH (pulmonary artery hypertension) Discharge Disposition: Home Social History Tobacco Use [...] Sig Dispensed Refills Start Date End Date buPROPion SR (Wellbutrin SR) 200 mg tablet [...] CLASSIC OXYGEN CONCENTRATOR MISC) 3 L by [facility].(Non-Drug; Combo Route) route nightly. diphenoxylate-atropin e (LOMOTIL) 2.5-0.025 mg Tablet Take 1 tablet by mouth 4 times daily. DO NOT restarted this unless you are having diarrhea. 120 tablet 7 06/11/2014 albuterol (PROVENTIL HFA;VENTOLIN HFA) 90 mcg/actuation HFA Aerosol Inhaler Inhale 2 puffs into the lungs every 4 hours as needed. Use with spacer Inhalational Spacing Device Spcr 2 puffs by [facility].(Non-Drug; Combo Route) route daily. promethazine (PHENERGAN) 25 mg tablet Take 25 mg by mouth every 6 hours as needed. MULTIVITAMIN ORAL Take 2 tablets by mouth daily. ASCORBATE CALCIUM (VITAMIN C ORAL) Take 1 tablet by mouth daily. OneTouch Ultra Blue Test Strip Strip USE [...] 10 mg by mouth daily. gabapentin (NEURONTIN) 600 mg TabletIndications:Ess ential tremor,Hand [...] twice daily 60 tablet 5 01/08/2020 07/14/2021 sulfamethoxazole-trim ethoprim DS (Bactrim DS) 800-160 mg TabletIndications:WOOD [employer] D, moderate Take 1 tablet by mouth 2 times daily. 14 tablet 1 10/09/2019 01/20/2021 acetaminophen (TYLENOL) 500 mg Tablet Take 1,000 [...] Procedure Name Priority Date/Time Associated Diagnosis Comments ECHO COMPLETE W CONTRAST Routine 07/29/2020 2:08 PM EST PAH (pulmonary artery hypertension) documented in this encounter Results * ECHO COMPLETE W CONTRAST (07/29/2020 2:08 PM EST) Pathologist [facility] EF 75 HEARTTriposo SYSTEM Anatomical Region Laterality Modality Other 07/29/2020 Narrative 07/29/2020 2:52 PM EST Procedure: ?Transthoracic Echocardiogram Patient: ?ODETTE Del Cid ? (Age): 1960(59y) Med Rec#: ? [id number] ?Sex: ?F ? Site Loc: ? [facility] ?Ht / Wt: ??154.94(cm)/79.0 Pt. Loc: ?Echo Lab ?BSA: ?1.78 Study Date: ?? 07/29/2020 ?Pt. Type: Same-Day Patient Tape: ? Referring: Osmany Holloway Reading: Parker Narvaez ([id number]) General Machine Operator: Peg Jose Diagnosis: *Other secondary pulmonary hypertension (I27.2) BP: ? 154/80 SUMMARY: 1. The left ventricular chamber size is normal. Concentric left ventricular remodeling is observed. ??There is normal global left ventricular systolic function. The quantitative left ventricular ejection fraction by biplane Salazar's method is 75%. There are no left ventricular segmental wall motion abnormalities. Left ventricular diastolic function is probably normal. 2. The left atrium is normal in size. 3. The right ventricle is normal in size. Right ventricular global systolic function is normal. 4. There is evidence of mild pulmonary hypertension. The estimated pulmonary artery systolic pressure is 43 mmHg. The estimated right atrial pressure is 3 mmHg. 5. Mild (1+/4+) aortic valve regurgitation is present. 6. There is mild to moderate (1-2+/4+) tricuspid regurgitation present. 7. There is mild dilatation of the ascending aorta (4.0 cm). 8. Compared to 10/03/2016, the estimated pulmonary artery systolic pressure has increased from 33 to 43 mmHg. Findings ? : Study Quality: ? Adequate Left Ventricle: ? The left ventricular chamber size is normal. ?Borderline concentric left ventricular hypertrophy is observed. remodeling ?There is no evidence of LVOT obstruction. ?No ventricular septal defect is visualized. ?There is normal global left ventricular systolic function. ?The quantitative left ventricular ejection fraction by biplane Salazar's method is 75%. ?There are no left ventricular segmental wall motion abnormalities. ?Left ventricular diastolic function is probably normal. Left Atrium: ? The left atrium is normal in size.(21 ml/m2) ?There is a possible patent foramen ovale demonstrated by color Doppler. Right Ventricle: ? The right ventricle is normal in size. ?Right ventricular global systolic function is normal. ?There is evidence of mild pulmonary hypertension. ?The estimated pulmonary artery systolic pressure is 43 mmHg. ?The estimated right atrial pressure is 3 mmHg. Right Atrium: ? The right atrium is normal in size. Aortic Valve: ? The aortic valve is tricuspid. ?There is no evidence of aortic valve stenosis. ?Mild (1+/4+) aortic valve regurgitation is present. Mitral Valve: ? The mitral valve leaflets appear normal. ?There is no evidence of mitral stenosis. ?There is trace mitral regurgitation present. Tricuspid Valve: ? The tricuspid valve leaflets are morphologically normal. ?There is mild to moderate (1-2+/4+) tricuspid regurgitation present. Pulmonic Valve: ? The pulmonic valve appears normal. ?There is no pulmonic stenosis present. ?There is no evidence of pulmonic regurgitation. Pericardium: ? There is no pericardial effusion. Aorta: ? The aortic root is normal in size. ?There is mild dilatation of the ascending aorta.(4.0cm) Pulmonary Artery: ? The main pulmonary artery appears normal. Venous: ? The inferior vena cava appears normal. ?There is a greater than 50% respiratory change in the inferior vena cava dimension. Misc: ? Two-dimensional echo, spectral Doppler and color Doppler performed. ?Definity contrast (one 1.5 ml vial)was used to enhance endocardial definition. Excess contrast was discarded. Chambers 2D ?Value ?Units (Range) ? IVSd (2D) ? 1.03 ? cm ? LVPWd (2D) ?0.95 ? cm ? IVS:LVPW ratio (2D) 1.08 ? ratio ? RWT (2D) ?0.46 ? ratio ? RWT PW (2D) ? 0.44 ? ratio ? LVIDd (2D) ?4.29 ? cm ? LVIDs (2D) ?2.96 ? cm ? LVIDd (2D) index ?2.41 ? cm/m2 ? LVIDs (2D) index ?1.66 ? cm/m2 ? LV FS (2D) ?31 ? % ? EF Teichholz (2D) ?? 59 ? % ? Ao root diameter (2D3.5 ?cm (2.1 - 3.6) ? Ascending Ao ?4 ?cm (2 - 3.5) ? Volumes/Mass ?Value ?Units (Range) ? LA Area 4 CH ?15 ? cm2 (<21) ? RA AREA 4CH ? 12 ? cm2 ? LA ESV BP (MOD) inde20.94 ?ml/m2 ? LV ESV SP 4CH (MOD) 24.5 ? ml ? LV ESV SP 2CH (MOD) 25.9 ? ml ? LV EDV BP ? 101 ?ml ? LV ESV BP ? 25.2 ? ml ? LV EDV BP index ? 56.7 ? ml/m2 ? LV ESV BP index ? 14.15 ?ml/m2 ? BP EF (MOD) ? 75.05 ?% ? LV mass (2D) ?140.19 ? g ? LV mass (2D) index ??78.7 ? g/m2 ? Diastolic/Systolic Function ?Value ?Units (Range) ? MV E-wave Vmax ?0.67 ? m/sec ? MV deceleration [id number] ?msec ? MV A-wave Vmax ?0.75 ? m/sec ? MV E:A ratio ?0.89 ? ratio ? LV septal e' Vmax ?? 0.07 ? m/sec ? LV lateral e' Vmax ??0.11 ? m/sec ? LV average e' Vmax ??0.09 ? m/sec ? LV E:e' septal ratio9.61 ? ratio ? LV E:e' lateral rati6.12 ? ratio ? LV average E:e' rati7.48 ? ratio ? Mitral Valve ?Value ?Units (Range) ? MV PHT ?49 ? msec ? MVA (PHT) ? 4.49 ? cm2 ? Tricuspid Valve ?Value ?Units (Range) ? TR Vmax ? 3.18 ? m/sec ? TR peak gradient ?40.45 ?mmHg ? RAP ? 3 ?mmHg ? RVSP ?43 ? mmHg ? Wall Motion: Segment Name ?Rest ? Base-Anteroseptal ?? Normal ? Base-Anterior ? Normal ? Base-Anterolateral ??Normal ? Base-Posterolateral Normal ? Base-Inferior ? Normal ? Base-Inferoseptal ?? Normal ? Mid-Anteroseptal ?Normal ? Mid-Anterior ?Normal ? Mid-Anterolateral ?? Normal ? Mid-Posterolateral ??Normal ? Mid-Inferior ?Normal ? Mid-Inferoseptal ?Normal ? [place]-Septal ? Normal ? [place]-Anterior ? Normal ? [place]-Lateral ?Normal ? [place]-Inferior ? Normal ? [place]-Tip ?Normal ? This report has been electronically signed by: Parker Narvaez MD ? 07/29/2020 14:51:18 Images reviewed and interpretation verified [facility] Cardiac Ultrasound Laboratory Procedure Note Parker Narvaez MD - 07/29/2020 Procedure: Transthoracic Echocardiogram Patient: ODETTE Del Cid DOB(Age): 1960(59y) Med Rec#: [id number] Sex: F Site Loc: [facility] Ht / Wt: 154.94(cm)/79.0 Pt. Loc: Echo Lab BSA: 1.78 Study Date: 07/29/2020 Pt. Type: Same-Day Patient Tape: Referring: Osmany Holloway Reading: Parker Narvaez ([id number]) General Machine Operator: Peg Jose Diagnosis: *Other secondary pulmonary hypertension (I27.2) BP: 154/80 SUMMARY: 1. The left ventricular chamber size is normal. Concentric left ventricular remodeling is observed. There is normal global left ventricular systolic function. The quantitative left ventricular ejection fraction by biplane Salazar's method is 75%. There are no left ventricular segmental wall motion abnormalities. Left ventricular diastolic function is probably normal. 2. The left atrium is normal in size. 3. The right ventricle is normal in size. Right ventricular global systolic function is normal. 4. There is evidence of mild pulmonary hypertension. The estimated pulmonary artery systolic pressure is 43 mmHg. The estimated right atrial pressure is 3 mmHg. 5. Mild (1+/4+) aortic valve regurgitation is present. 6. There is mild to moderate (1-2+/4+) tricuspid regurgitation present. 7. There is mild dilatation of the ascending aorta (4.0 cm). 8. Compared to 10/03/2016, the estimated pulmonary artery systolic pressure has increased from 33 to 43 mmHg. Findings : Study Quality: Adequate Left Ventricle: The left ventricular chamber size is normal. Borderline concentric left ventricular hypertrophy is observed. remodeling There is no evidence of LVOT obstruction. No ventricular septal defect is visualized. There is normal global left ventricular systolic function. The quantitative left ventricular ejection fraction by biplane Salazar's method is 75%. There are no left ventricular segmental wall motion abnormalities. Left ventricular diastolic function is probably normal. Left Atrium: The left atrium is normal in size.(21 ml/m2) There is a possible patent foramen ovale demonstrated by color Doppler. Right Ventricle: The right ventricle is normal in size. Right ventricular global systolic function is normal. There is evidence of mild pulmonary hypertension. The estimated pulmonary artery systolic pressure is 43 mmHg. The estimated right atrial pressure is 3 mmHg. Right Atrium: The right atrium is normal in size. Aortic Valve: The aortic valve is tricuspid. There is no evidence of aortic valve stenosis. Mild (1+/4+) aortic valve regurgitation is present. Mitral Valve: The mitral valve leaflets appear normal. There is no evidence of mitral stenosis. There is trace mitral regurgitation present. Tricuspid Valve: The tricuspid valve leaflets are morphologically normal. There is mild to moderate (1-2+/4+) tricuspid regurgitation present. Pulmonic Valve: The pulmonic valve appears normal. There is no pulmonic stenosis present. There is no evidence of pulmonic regurgitation. Pericardium: There is no pericardial effusion. Aorta: The aortic root is normal in size. There is mild dilatation of the ascending aorta.(4.0cm) Pulmonary Artery: The main pulmonary artery appears normal. Venous: The inferior vena cava appears normal. There is a greater than 50% respiratory change in the inferior vena cava dimension. Misc: Two-dimensional echo, spectral Doppler and color Doppler performed. Definity contrast (one 1.5 ml vial)was used to enhance endocardial definition. Excess contrast was discarded. Chambers 2D Value Units (Range) IVSd (2D) 1.03 cm LVPWd (2D) 0.95 cm IVS:LVPW ratio (2D) 1.08 ratio RWT (2D) 0.46 ratio RWT PW (2D) 0.44 ratio LVIDd (2D) 4.29 cm LVIDs (2D) 2.96 cm LVIDd (2D) index 2.41 cm/m2 LVIDs (2D) index 1.66 cm/m2 LV FS (2D) 31 % EF Teichholz (2D) 59 % Ao root diameter (2D3.5 cm (2.1 - 3.6) Ascending Ao 4 cm (2 - 3.5) Volumes/Mass Value Units (Range) LA Area 4 CH 15 cm2 (<21) RA AREA 4CH 12 cm2 LA ESV BP (MOD) inde20.94 ml/m2 LV ESV SP 4CH (MOD) 24.5 ml LV ESV SP 2CH (MOD) 25.9 ml LV EDV BP 101 ml LV ESV BP 25.2 ml LV EDV BP index 56.7 ml/m2 LV ESV BP index 14.15 ml/m2 BP EF (MOD) 75.05 % LV mass (2D) 140.19 g LV mass (2D) index 78.7 g/m2 Diastolic/Systolic Function Value Units (Range) MV E-wave Vmax 0.67 m/sec MV deceleration [id number] msec MV A-wave Vmax 0.75 m/sec MV E:A ratio 0.89 ratio LV septal e' Vmax 0.07 m/sec LV lateral e' Vmax 0.11 m/sec LV average e' Vmax 0.09 m/sec LV E:e' septal ratio9.61 ratio LV E:e' lateral rati6.12 ratio LV average E:e' rati7.48 ratio Mitral Valve Value Units (Range) MV PHT 49 msec MVA (PHT) 4.49 cm2 Tricuspid Valve Value Units (Range) TR Vmax 3.18 m/sec TR peak gradient 40.45 mmHg RAP 3 mmHg RVSP 43 mmHg Wall Motion: Segment Name Rest Base-Anteroseptal Normal Base-Anterior Normal Base-Anterolateral Normal Base-Posterolateral Normal Base-Inferior Normal Base-Inferoseptal Normal Mid-Anteroseptal Normal Mid-Anterior Normal Mid-Anterolateral Normal Mid-Posterolateral Normal Mid-Inferior Normal Mid-Inferoseptal Normal [place]-Septal Normal [place]-Anterior Normal [place]-Lateral Normal [place]-Inferior Normal [place]-Tip Normal This report has been electronically signed by: aPrker Narvaez MD 07/29/2020 14:51:18 Images reviewed and interpretation verified [facility] Cardiac Ultrasound Laboratory Osmany Overton MD ECHO ORDERABLES documented in this encounter Visit Diagnoses Diagnosis PAH (pulmonary artery hypertension) Other chronic pulmonary heart diseases documented in this encounter Administered Medications Inactive Administered Medications - up to 3 most recent administrations Medication Order MAR Action Action Date Dose Rate Site perflutren lipid microspheres (Definity) injection 0.5 mL 0.5 mL, Intravenous, ONCE PRN, 1 dose, Starting on Sat07/29/20 at 1409, Until Sat07/29/20 at 1330, Other, for enhancement of sub-optimal echo images, Echo Lab (Intra-Procedure), Routine Given 07/29/2020 1:30 PM EST 1.5 mLs documented in this encounter Care Teams Production Intern Relationship Specialty Start Date End Date Cb Florence PA [address] [place] [address] PCP - General Family Medicine 04/08/20 documented as of this encounter
--- OUTSIDE RECORDS SUMMARY | 2024-03-17 18:27 | XMS_ITS | Encounter Summary ---
[place] [address] Care Team Providers Care Ear Nose And Throat Specialist Name Role Phone Cb Florence Primary Care Provider +1- [phone] Reason for Referral * Diagnostic Test (Routine) - Closed Specialty Diagnoses / Procedures Referred By Chava alejo Referred To Contact Cardiology Diagnoses PAH (pulmonary artery hypertension) Procedures Echocardiogram Transthoracic([facility]) Osmany Holloway MD [facility] [place] [address] [place] [address] Referral ID Status Reason Start Date Expiration Date V isits Requested Visits Authorized [id number] Closed Specialty Service Requested 04/18/2020 04/18/2021 1 1 Reason for Visit * Reason Comments Follow-up Encounter Details Date Type Department Care Team (Late st Contact Info) Description 04/08/2020 2:00 PM EDT [place] [address] Osmany Holloway MD [facility] [place] [address] PAH (pulmonary artery hypertension); COPD, moderate Social History Tobacco Use Types [...] Sign Reading Time Taken Comments Blood Pressure 164/96 04/08/2020 1:24 PM EDT Pulse 85 04/08/2020 1:24 PM EDT Temperature 37.1 ??C (98.7 ??F) 04/08/2020 1:24 PM ED T Respiratory Rate - - Oxygen Saturation 98% 04/08/2020 1:24 PM EDT Inhaled Oxygen Concentration - - Weight 82.4 kg (181 lb 10.5 oz) 04/08/2020 1:24 PM EDT Height 153.2 cm (5' 0.32) 04/08/2020 1:24 PM ED T Body Mass Index 35.11 04/08/2020 1:24 PM EDT documented in this encounter Progress Notes * Osmany Holloway MD - 04/08/2020 2:00 PM EDT Images from the original note were not included. ? DEPARTMENT ??OF MEDICINE ?SECTION OF PULMONARY AND CRITICAL CARE??MEDICINE Pulmonary and Critical Care Medicine Formerly [place] [address] [id number] Outpatient follow-up visit Follow-up 59 y.o. female [...] smoking, up to a pack a day. She has been diagnosed with sleep apnea but was not able to tolerate CPAP, and complains of daytime fatigue and somnolence. She is using 3 L/min of oxygen at night, but she complains of chronic nasal congestion and does not feel that the nasal cannula deliver much oxygento her, particularly as she is a mouth breather at night. PAST MEDICAL HISTORY Patient Active Problem List [...] Outpatient Medications Medication Sig Dispense Refill ??? eluxadoline (Viberzi) 100 mg Tablet Take 100 mg by mouth daily. 30 tablet 1 ??? Viberzi 100 mg Tablet Take 1 tablet by mouth twice daily 60 tablet 5 ??? sulfamethoxazole-trimethoprim DS (Bactrim DS) 800-160 mg Tablet Take 1 tablet by mouth 2 times daily. 14 tablet 1 ??? gabapentin (NEURONTIN) 300 [...] tablet by mouth 2 times daily. 60 [id number] ??? baclofen (LIORESAL) 10 mg Tablet Take [...] CLASSIC OXYGEN CONCENTRATOR MISC) 3 L by [facility]Non-Drug; Combo Route) route nightly. ??? chlorpheniramine (CHLOR-TRIMETON) [...] Inhalational Spacing Device Spcr 2 puffs by [facility].(Non-Drug; Combo Route) route daily. ??? fluticasone (FLONASE) [...] Take 2 tablets by mouth daily. ??? citalopram (CELEXA) 40 mg tablet Take 1 tablet by mouth daily. 90 tablet 3 ??? Miscellaneous [employer] [facility] Face mask for nocturnal O2 (Patient not taking: Reported on 08/21/2017) 1 each PRN ??? ASCORBATE CALCIUM (VITAMIN C ORAL) Take 2 tablets by mouth daily. ??? loratadine (CLARITIN) 10 mg tablet Take 10 mg by mouth daily. No current facility-administered medications for this visit. ALLERGIES: Pneumococcal vaccine and Albuterol PHYSICAL EXAM Last value Range last 24 hrs Temperature Temp: 37.1 ??C (98.7 ??F) Temp: [37.1 ??C (98.7 ??F)] Heart Rate Heart Rate: 85 Heart Rate: [85] Blood Pressure BP: (!) 164/96 BP: (164)/(96) Respiratory Rate Resp: -- SpO2 SpO2: 98 % SpO2: [98 %] WDWN 59 y.o. female in NAD. HEENT-NC/AT; unremarkable Neck-supple without masses or, nodes Chest-diminished breath sounds bilaterally with a few scattered rhonchi at her bases Heart-Normal rate and rhythm, without murmers, gallops, or rubs. Abdomen-benign without organomegaly or tenderness Extremities-no cyanosis, clubbing; 1+ LE edema Skin-no rashes or lesions Musculoskeletal-no joint swelling, tenderness, redness or deformities Neurologic-Nonfocal, without weakness or sensory deficits Lymphatics-unremarkable PFTs were performed today and my interpretation is as follows: FVC 2.07L (73% pred); FEV1 1.37L (61% pred); FEV1/FVC 66%. Diffusing capacity of 42% pred. C/W combined obstructive and restrictive lung disease, with a modest decline since her previous studies. IMPRESSION: In summary, this is a 59 [...] long after discharge from rehab facility. She began smoking 1 pack a day again, though now she states she has dropped to a quarter of a pack per day. She continues to have mild ongoing chronic bronchitis. I gave her a full facemask with an adapter to which she can connect her oxygen, but she will need a prescription for this from [employer] so that he can be replaced at reasonable intervals. Greater than 10 minutes of this 15-minute visit was spent in direct [id number] counseling with the patient regarding the management of her nocturnal desaturation, and working on smoking cessation. documented in this encounter Plan of Treatment Not on file documented as of this encounter Results * ECHO COMPLETE W CONTRAST (07/29/2020 2:08 PM EST) EF 75 HEARTLAB SYSTEM Anatomical Region Laterality Modality Other 07/29/2020 Narrative 07/29/2020 2:52 PM EST Procedure: ?Transthoracic Echocardiogram Patient: ?ODETTE POPPY Del Cid ? (Age): 1960(59y) Med Rec#: ? [id number] ?Sex: ?F ? Site Loc: ? [facility] ?Ht / Wt: ??154.94(cm)/79.0 Pt. Loc: ?Echo Lab ?BSA: ?1.78 Study Date: ?? 07/29/2020 ?Pt. Type: Same-Day Patient Tape: ? Referring: Osmany Holloway Reading: Parker Narvaez ([id number]) Smash Piecer: Peg Jose Diagnosis: *Other secondary pulmonary hypertension [...] Vmax ?0.67 ? m/sec ? MV deceleration [id number] ?msec ? MV A-wave Vmax ?0.75 ? [...] ? Mid-Inferior ?Normal ? Mid-Inferoseptal ?Normal ? [place]-Septal ? Normal ? [place]-Anterior ? Normal ? [place]-Lateral ?Normal ? [place]-Inferior ? Normal ? [place]-Tip ?Normal ? This report has been electronically signed by: Parker Narvaez MD ? 07/29/2020 14:51:18 Images reviewed and interpretation verified [facility] Cardiac Ultrasound Laboratory Procedure Note Parker Narvaez MD - 07/29/2020 Procedure: Transthoracic Echocardiogram Patient: ODETTE Del Cid DOB(Age): 1960(59y) Med Rec#: [id number] Sex: F Site Loc: [facility] Ht / Wt: 154.94(cm)/79.0 Pt. Loc: Echo Lab BSA: 1.78 Study Date: 07/29/2020 Pt. Type: Same-Day Patient Tape: Referring: Osmany Holloway Reading: Parker Narvaez ([id number]) Smash Piecer: Pge Jose Diagnosis: *Other secondary pulmonary hypertension (I27.2) [...] MV E-wave Vmax 0.67 m/sec MV deceleration [id number] msec MV A-wave Vmax 0.75 m/sec MV [...] Normal Mid-Posterolateral Normal Mid-Inferior Normal Mid-Inferoseptal Normal [place]-Septal Normal [place]-Anterior Normal [place]-Lateral Normal [place]-Inferior Normal [place]-Tip Normal This report has been electronically signed by: Parker Narvaez MD 07/29/2020 14:51:18 Images reviewed and interpretation verified [facility] Cardiac Ultrasound Laboratory Osmany Overton MD ECHO ORDERABLES * Pulmonary Function Testing (07/29/2020 12:00 AM EST) Narrative COMPAS PFT - 07/29/2020 12:00 AM EST Normal resting oximetry. Exercise-induced oxygen desaturation was observed. Patient required 2 L/min of supplemental oxygen during ambulation for adequate SpO2. Procedure Note Unknown - 07/30/2020 Normal resting oximetry. Exercise-induced oxygen desaturation wasobserved. Patient required 2 L/min of supplemental oxygen during ambulation for adequate SpO2. Osmany Overton MD PFT ORDERABLES COMPAS PFT documented in this encounter Visit Diagnoses Diagnosis PAH (pulmonary artery hypertension) Other chronic pulmonary heart diseases COPD, moderate Chronic airway obstruction, not elsewhere classified PAH (pulmonary artery hypertension) Other chronic pulmonary heart diseases COPD, moderate Chronic airway obstruction, not elsewhere classified PAH (pulmonary artery hypertension) Other chronic pulmonary heart diseases documented in this encounter Care Teams Ear Nose And Throat Specialist Relationship Specialty Start Date End Date Cb Florence PA [address] [place] [address] PCP - General Family Medicine 04/08/20 documented as of this encounter
--- OUTSIDE RECORDS SUMMARY | 2024-03-17 18:27 | XMS_ITS | Encounter Summary ---
[place] [address] Care Team Providers Care Clinical Admissions Manager Name Role Phone Cb Florence Primary Care Provider +1- [phone] Reason for Visit * Reason Onset Date Comments Reminder Appointment 12/23/2019 Encounter Details Date Type Department Care Team (Late st Contact Info) Description 12/23/2019 [place] [address] Gay Ceron CCMA Reminder Appointment Social History Tobacco Use Types Packs/Day Years [...] encounter Miscellaneous Notes * Telephone Encounter - Gay Ceron CCMA - 12/23/2019 8:58 AM EDT Called patient to review medications and allergies for their upcoming gastroenterology Type of Appointment: Telehealth appointment. Reach Patient during MA Check: Yes Notes for the provider: Notes for the nurse: documented in this encounter Plan of Treatment Not on file documented as of this encounter Visit Diagnoses Not on filedocumented in this encounter Care Teams Clinical Admissions Manager Relationship Specialty Start Date End Date Cb Florence PA [address] [place] [address] PCP - General Family Medicine 11/13/18 03/29/20 documented as of this encounter
--- OUTSIDE RECORDS SUMMARY | 2024-03-17 18:27 | XMS_ITS | Encounter Summary ---
Author Organization [facility] [address] Care Team Providers Care Regional Company Truck Driver Name Role Phone Cb Florence Primary Care Provider +1- [phone] Encounter Details Date Type Department Care Team (Late st Contact Info) Description 05/27/2020 External [place] [address] Marshall Montgomery MD [facility] [place] [address] Social History Tobacco Use Types Packs/Day Years [...] Procedure Name Priority Date/Time Associated Diagnosis Comments EMG SCAN Routine 05/27/2020 documented in this encounter Results * Scan Doc: EMG (05/27/2020) Marshall Montgomery MD MEDIA MGR SCAN EXT O RDR/RSLT documented in this encounter Visit Diagnoses Not on filedocumented in this encounter Care Teams Regional Company Truck Driver Relationship Specialty Start Date End Date Cb Florence PA [address] [place] [address] PCP - General Family Medicine 04/08/20 documented as of this encounter
--- OUTSIDE RECORDS SUMMARY | 2024-03-17 18:27 | XMS_ITS | Encounter Summary ---
[place] [address] Care Team Providers Care Truckload Owner Operator Name Role Phone Cb Florence Primary Care Provider +1- [phone] Reason for Visit * Reason Onset Date Comments Other 05/13/2020 faxed order for O2 face mask, demographics and chart note to [facility] Encounter Details Date Type Department Care Team (Late st Contact Info) Description 05/13/2020 Tele[place] [address] Julia Marshall, RN Other (faxed order for O2 face mask, demographics and chart note to [facility]) Social History Tobacco Use Types Packs/Day Years [...] on filedocumented in this encounter Care Teams Truckload Owner Operator Relationship Specialty Start Date End Date Cb Florence PA [address] [place] [address] PCP - General Family Medicine 04/08/20 documented as of this encounter
--- OUTSIDE RECORDS SUMMARY | 2024-03-17 18:27 | XMS_ITS | Encounter Summary ---
[place] [address] Care Team Providers Care Movie Stunt Performer Name Role Phone Cb Florence Primary Care Provider +1- [phone] Reason for Visit * Reason Comments Back Pain lower mid back to lo wer back into RT hip * Consultation (Routine) - Closed Specialty Diagnoses / Procedures Referred By Contac t Referred To Contact [facility] Diagnoses Dorsalgia, unspecified Spine - Chronic low back pain/ RLE pain/ h/o L4-L5 diskectomy 2014 w/ AMP/ MRI 02/21/21 @ [facility] Cb Florence PA [address] [place] [address] [facility] [place] [place] [address] Referral ID Status Reason Start Date Expiration Date Visits Re quested Visits Authorized [id number] Closed 03/10/2021 03/10/2022 1 1 Encounter Details Date Type Department Care Team (Latest Contact Info) Description 05/04/2021 8:40 AM EDT Office Visit [facility] [place] [address] Rios Acuna MD [facility] [place] [address] Spondylolisthesis of lumbar region; Pain in extremity, [...] Sign Reading Time Taken Comments Blood Pressure 160/88 05/04/2021 8:08 AM EDT Pulse 78 05/04/2021 8:08 AM EDT Temperature - - Respiratory Rate - - Oxygen Saturation - - Inhaled Oxygen Concentration - - Weight 85.7 kg (189 lb) 05/04/2021 8:08 AM EDT Height 154.9 cm (5' 1) 05/04/2021 8:08 AM EDT Body Mass Index 35.71 05/04/2021 8:08 AM EDT documented in this encounter Progress Notes * Rios Acuna MD - 05/04/2021 8:40 AM EDT Chief complaint: Low back pain radiating to right lower extremity History of present illness: Ms. Mclaughlin is a 60-year-old female whom I am seeing in consultation Lisa Florence in regards to her back pain that radiates to her right buttock, anterolateral thigh, and anteromedial leg. The symptoms have been worse for the last 3 or 4 months, though she has hadsimilar symptoms for many years. The pain is worse with prolonged sitting or prolonged standing as w ell as activity. She gets relief by leaning forward and changing position. It limits her standing to about 10 minutes and walking to less than 100 yards. She reports numbness in the same distributionas her pain. Her right lower extremity feels weak to her. The pain bothers her at night. She deniesconstitutional symptoms or any change in her bowel or bladder function. She has been taking tramadol, Lyrica, baclofen, Mobic, and Tylenol without much improvement. She did 3 months of physical therapy that made things worse. She has not had recent injections and had a bad experience with her last injection. She underwent a right L4-L5 far lateral discectomy 2014 by myself with a good result. Stevie underwent a C5-C7 ACDF, also by me with a good result in 2013. Past medical history: Prediabetes, hypothyroidism, COPD, depression, anxiety Past surgical history: Spine surgery as above, right knee arthroscopy, ORIF left elbow Medications and allergies were reviewed and are in ED H. Family history: Heart disease, cancer, diabetes Social history: She is on disability. She quit smoking a couple of months ago. She does not drink. Review of systems: All negative except musculoskeletal above. Physical exam Patient is 5 foot 1, 189 pounds, with a BMI of 36 General: Patient is comfortable, no acute distress Back: She has a well-healed right paramedian incision. Her back is tender to palpation in the lowerlumbar spine and over her right sciatic notch. She can flex 40 degrees and extend 5 degrees. Neurological exam: She walks with an antalgic gait. She can heel walk and toe walk. Motor exam reveals 4+/5 strength of her right ankle dorsiflexor and right EHL. Other motors are 5/5. She has diminished sensation in her right anterior leg and anterolateral thigh. Reflexes are trace at the knees and ankles. Straight leg raise is negative bilaterally. She has no clonus. Hip exam: She has normal, painless range of motion of both hips. Vascular exam: She has palpable pulses bilaterally. Imaging: MRI of the lumbar spine from 02/21/2021 is reviewed. This shows a grade 1 spondylolisthesisat L4-L5 with a grade 1/2 spondylolisthesis at L5-S1. I see no pars defects. At L4-L5, she has mildcentral and severe right foraminal stenosis. At L5-S1, she has mild lateral recess stenosis withoutnerve root compression. She has moderate left-sided foraminal narrowing. Assessment/plan: Ms. Mclaughlin is a 60-year-old female who presents with longstanding back pain and right L4 radiculopathy that has been worse for the past 3 or 4 months in the setting of severe right-sided foraminal stenosis at L4-L5 with degenerative spondylolisthesis at L4-L5 and L5-S1. There is not significant nerve root compression at L5-S1. We discussed treatment options for this that include continued medication, further physical therapy, epidural steroid injection, and surgery. At this point, she feels as though she has failed to improve despite extensive nonoperative treatment and that this is markedly compromising her quality of life. She would like to proceed with surgery. Surgery in her case will involve a right L4-L5 hemilaminectomy and complete facetectomy in order to decompress the L4 nerve root in the foramen. This would then necessitate a fusion from L4-S1 given the listhesis at those levels. We will plan on using right iliac crest bone graft as there will not be sufficient local bone graft. The planned surgery was demonstrated on the spine model. Consent was obtained.Risk reduction on the consent form. The typical recovery was reviewed. She will need a history and physical from her primary care physician and preadmission testing. I told her to avoid any aspirin, anti- inflammatory medication, or fish oil within 1 week of surgery. I reinforced the need for continued smoking cessation in order to avoid an increased risk of pseudoarthrosis. We will obtain uprightx-rays today. We will schedule surgery at her convenience. documented in this encounter Plan of Treatment [...] who have questions please contact the health youth career specialist that requested your imaging first. ? Electronically signed by: Dion Austin MD, [facility] ([phone]), at 08/10/2021 3:04 PM Narrative 08/10/2021 3:04 [...] patients who have questions please contactthe health youth career specialist that requested your imaging first. Electronically signed by: Dion Austin MD, [facility]([phone]), at 08/10/2021 3:04 PM Rios Acuna MD IMG DX ORDERABLES * Prothrombin Time (07/11/2021 9:01 AM EST) Prothrombin Time 11.2 9.4 - 12.5 sec [facility] International Normalization Ratio 1.0 [facility] Comment: An INR <2.0 indicates [...] Lab Rios Acuna MD HEMATOLOGY ORDERABLE S [facility] [place] [address] * (ABNORMAL) Basic Metabolic Panel (non-fasting) (07/11/2021 9:01 AM EST) Glucose 84 65 - 199 mg/dL [facility] Comment:Diabetes: >=200 mg/d L plus symptoms Blood Urea Nitrogen 22(H) 8 - 18 mg/dL [facility] Creatinine 1.26(H) 0.70 - 1.20 mg/dL [facility] Sodium 141 135 - 145 mmol/L [facility] Potassium 3.9 3.5 - 5.0 mmol/L [facility] Comment: Please note: ??Patients with WBC >100,000 may have falsely elevated Potassium levels. ??For accurate Potassium quantification in these patients send serum separator tube (gold top) for subsequent determinations. ??Contact the Clinical Chemistry Laboratory if there are any questions. Chloride 104 98 - 107 mmol/L [facility] Carbon Dioxide 26 22 - 31 mmol/L [facility] Anion Gap 11 5 - 15 mmol/L [facility] Calcium 9.7 8.5 - 10.5 mg/dL [facility] Est Glomerular Filtration Rate 47(L) >=60 mL/min/1. 73 m?? [facility] Comment: This patient? s estimated [...] In Lab Rios Acuna MD CHEMISTRY ORDERABLES [facility] [place] [address] * XR Lumbar Spine 2 Or 3 [...] who have questions please contact the health youth career specialist that requested your imaging first. ? Narrative [...] patients who have questions please contactthe health youth career specialist that requested your imaging first. Electronically signed by: Kermit Reyna MD, [facility]([phone]), at 05/04/2021 10:18 AM Rios Acuna MD IMG DX ORDERABLES documented in this encounter Visit Diagnoses Diagnosis Spondylolisthesis of lumbar region Acquired spondylolisthesis Pain in extremity, unspecified extremity Spondylolisthesis of lumbar region Acquired spondylolisthesis Spondylolisthesis of lumbar region Acquired spondylolisthesis documented in this encounter Care Teams Movie Stunt Performer Relationship Specialty Start Date End Date Cb Florence PA [address] [place] [address] PCP - General Family Medicine 04/08/20 documented as of this encounter
--- OUTSIDE RECORDS SUMMARY | 2024-03-17 18:27 | XMS_ITS | Encounter Summary ---
[place] [address] Care Team Providers Care Editor Publications Name Role Phone Cb Florence Primary Care Provider +1- [phone] Reason for Visit * Reason Onset Date Comments Oxygen Dependence 01/28/2020 Written Confir mation of an Order Encounter Details Date Type Department Care Team (Late st Contact Info) Description 01/28/2020 [place] [address] Suzanne Sears RN Oxygen Dependence (Written Confirmation of an Order) Social History Tobacco Use Types Packs/Day [...] Telephone Encounter - Suzanne Sears RN - 01/28/2020 2:42 PM EDT Faxed completed Written Confirmation of an Order form, signed by Dr. Holloway, to [employer]. This covered the following items: E1392 Portable Oxygen RNT PORTO2 (4) E1390 Concentrator Oxlife 3 LPMNT Concentr 20 (4) Fax submission confirmation time stamped for 01/28/2020 @ 5560. 2 pages with cover sheet. Copy of Written Confirmation of Order for Oxygen form sent to scanning for inclusion to patient records. documented in this encounter Plan of Treatment Not on file documented as of this encounter Visit Diagnoses Not on filedocumented in this encounter Care Teams Editor Publications Relationship Specialty Start Date End Date Cb Florence PA [address] [place] [address] PCP - General Family Medicine 11/13/18 03/29/20 documented as of this encounter
--- OUTSIDE RECORDS SUMMARY | 2024-03-17 18:27 | XMS_ITS | Encounter Summary ---
Author Organization [facility] [place] [address] Care Team Providers Care Field Clerk Name Role Phone Cb Florence Primary Care Provider +1- [phone] Reason for Visit * Reason Comments Follow-up Encounter Details Date Type Department Care Team (Late st Contact Info) Description 07/29/2020 3:30 PM EST [place] [address] Osmany Holloway MD [facility] [place] [address] COPD, moderate; PAH (pulmonary artery hypertension) Social [...] Sign Reading Time Taken Comments Blood Pressure 133/82 07/29/2020 2:56 PM EST Pulse 86 07/29/2020 2:56 PM EST Temperature 37.4 ??C (99.3 ??F) 07/29/2020 2:56 PM ES T Respiratory Rate 16 07/29/2020 2:56 PM EST Oxygen Saturation 97% 07/29/2020 2:56 PM EST Inhaled Oxygen Concentration - - Weight 82.4 kg (181 lb 10.5 oz) 07/29/2020 2:56 PM EST Height 153.2 cm (5' 0.32) 07/29/2020 2:56 PM ES T Body Mass Index 35.11 07/29/2020 2:56 PM EST documented in this encounter Progress Notes * Osmany Holloway MD - 07/29/2020 3:30 PM EST Images from the original note were not included. ? DEPARTMENT ??OF MEDICINE ?SECTION OF PULMONARY AND CRITICAL CARE??MEDICINE Pulmonary and Critical Care Medicine [facility] [place] [address] Outpatient follow-up visit Follow-up 59 y.o. female [...] night. She is on Symbicort, albuterol by [place] andby nebulizer as needed, and Singulair. PAST MEDICAL HISTORY Patient Active Problem List [...] Outpatient Medications Medication Sig Dispense Refill ??? gabapentin (NEURONTIN) 600 mg Tablet Take 1 tablet by mouth 3 times daily. 90 tablet 5 ??? [employer] Consumer Productsuch Ultra Blue Test Strip Strip USE 1 [...] traZODone (Desyrel) 50 mg Tablet nightly. ??? Miscellaneous Medical Supply Misc Face mask for nocturnal O2, and appropriate accessories. 1 each PRN ??? eluxadoline (Viberzi) 100 mg Tablet Take 100 mg by mouth daily. 30 tablet 1 ??? rosuvastatin (CRESTOR) 10 mg Tablet Take [...] tablet by mouth 2 times daily. 60 [id number] ??? baclofen (LIORESAL) 10 mg Tablet Take 10 mg by mouth 3 times daily. Takes 20mg at night ??? SYMBICORT 160-4.5 mcg/actuation HFA Aerosol Inhaler Inhale 2 puffs into the lungs 2 times daily. ??? OXYGEN-AIR DELIVERY SYSTEMS ( CLASSIC OXYGEN CONCENTRATOR MISC) 3 L by [facility]Non-Drug; Combo Route) route nightly. ??? diphenoxylate-atropine (LOMOTIL) [...] puffs by Misc.(Non-Drug; Combo Route) route daily. ??? promethazine (PHENERGAN) [...] by mouth daily. 90 tablet 3 ??? Chantix Starting Month Box 0.5 mg (11)- 1 mg (42) Tablets, Dose Pack TAKE 1 TABLET BY MOUTH IN MORNING WITH FOOD FOR 3 DAYS THEN INCREASE TO 1 TABLET BY MOUTH TWICE DAILY WITH FOOD THEREAFTER DIRECTED ON PA ??? Viberzi 100 mg Tablet Take 1 tablet by mouth twice daily 60 tablet 5 ??? sulfamethoxazole-trimethoprim DS (Bactrim DS) 800-160 mg Tablet Take 1 tablet by mouth 2 times daily. (Patient not taking: Reported on 05/27/2020) 14 tablet 1 ??? albuterol (PROVENTIL) 2.5 mg /3 mL (0.083 %) Solution for Nebulization Take 2.5 mg by nebulization every 4 hours as needed for Wheezing. ??? chlorpheniramine (CHLOR-TRIMETON) 4 mg Tablet Take [...] value Range last 24 hrs Temperature Temp: 37.4 ??C (99.3 ??F) Temp: [37.4 ??C (99.3 ??F)] Heart Rate Heart Rate: 86 Heart Rate: [86] Blood Pressure BP: 133/82 BP: (133)/(82) Respiratory Rate Resp: 16 Resp: [16] SpO2 SpO2: 97 % SpO2: [97 %] [...] today and my interpretation is as follows: Home O2 evaluation revealed desaturation after walking several 100 feet on room air. This was mitigated by supplemental oxygen at 2 L/min while exerting herself. Echocardiogram was performed and revealed an increase in estimated PA systolic pressure to 43 mmHg.There was also evidence of a PFO though this was not a bubble study. IMPRESSION: In summary, this is a 59 [...] continues to have mild ongoing chronic bronchitis. Her nocturnal desaturation (intolerant of CPAP) and her use ofportable oxygen with walking very sparingly likely are contributing factors to her rising PA systolic pressure. I discussed this with her, as well as the importance of smoking cessation (which she understands). I will see her back in about 6 months for follow-up with PFTs. Greater than 20 minutes of this 25 minute visit was spent in direct zijq-ke-[id number] counseling with the patient regarding the management of her nocturnal (and exertional) desaturation, and working on smoking cessation. documented in this encounter Plan of Treatment Not on file documented as of this encounter Results * Pulmonary Function Testing (01/20/2021 2:48 PM EDT) FVC Actual Pre-BD 1.96 L COMPAS PFT FVC Pre-BD % of Predicted 71 % COMPAS PFT FVC Predicted 2.77 L COMPAS PFT FVC Pre-BD Z-Score -2.04 COMPAS PFT FVC Lower Limits of Normal 2.11 L COMPAS PFT FEV1 Actual Pre-BD 1.33 L COMPAS PFT FEV1 Pre-BD % of Predicted 60 % COMPAS PFT FEV1 Predicted 2.21 L COMPAS PFT FEV1 Pre-BD Z-Score -2.69 COMPAS PFT FEV1 Lower Limits of Normal 1.68 L COMPAS PFT FEV1 / FVC Actual Pre-BD 68 % COMPAS PFT FEV1/FVC Pre-BD Z-Score -1.66 COMPAS PFT FEV1 / FVC LLN 68 % COMPAS PFT [id number] Actual Pre-BD 0.68 L/s COMPAS PFT [id number] Pre-BD % of Predicted 32 % COMPAS PFT [id number] Predicted 2.14 L/s COMPAS PFT [id number] Pre-BD Z-Score -2.58 COMPAS PFT DLCO Hb Actual Pre-BD 7.29 mL/min/mmHg COMPAS PFT DLCO Hb Pre-BD % of Predicted 41 % COMPAS PFT DLCO Hb Pre-BD Z-Score -5.86 COMPAS PFT DLCO Hb Predicted 17.66 mL/min/mmHg COMPAS PFT DLCO UNC ACT PRE-BD 7.29 mL/min/mmHg COMPAS PFT DLCO UNC PRE-BD % of PRED 41 % COMPAS PFT DLCO UNC PRE-BD Z-SCORE -5.86 % COMPAS PFT DLCO UNC Predicted 17.66 mL/min/mmHg COMPAS PFT DLCO/VA Actual Pre-BD 2.20 mL/min/mmHg /L COMPAS PFT DLCO/VA Pre-BD % of Predicted 50 % COMPAS PFT DLCO/VA Pre-BD Z-Score -4.04 COMPAS PFT DLCO/VA Predicted 4.40 mL/min/mmHg /L COMPAS PFT Narrative COMPAS PFT - 01/20/2021 2:48 PM EDT FINDINGS: FEV1, FVC and FEV1/VC are reduced. Diffusion capacity not adjusted for hemoglobin is reduced. Normal resting oximetry.IMPRESSION: These data demonstrate a moderate (FEV1 60 to 69%) obstructive ventilatory deficit. ??The presence of concurrent restriction or air trapping can be tested by measurement of lung volumes. Moderate reduction in diffusing capacity (DLCO 40 to 60%). The combination of obstruction with a decreased diffusing capacity suggests emphysema. Procedure Note Justin Amezcua MD - 01/20/2021 FINDINGS: FEV1, FVC and FEV1/VC are reduced. Diffusion capacity notadjusted for hemoglobin is reduced. Normal resting oximetry.IMPRESSION: These data demonstrate amoderate (FEV1 60 to 69%) obstructive ventilatory deficit. The presence of concurrent restrictionor air trapping can be tested by measurement of lung volumes. Moderate reduction in diffusingcapacity (DLCO 40 to 60%). The combination of obstruction with a decreased diffusing capacitysuggests emphysema. Osmany Overton MD PFT ORDERABLES COMPAS PFT documented in this encounter Visit Diagnoses Diagnosis COPD, moderate Chronic airway obstruction, not elsewhere classified PAH (pulmonary artery hypertension) Other chronic pulmonary heart diseases COPD, moderate Chronic airway obstruction, not elsewhere classified PAH (pulmonary artery hypertension) Other chronic pulmonary heart diseases documented in this encounter Care Teams Field Clerk Relationship Specialty Start Date End Date Cb Florence PA [address] [place] [address] PCP - General Family Medicine 04/08/20 documented as of this encounter
--- OUTSIDE RECORDS SUMMARY | 2024-03-17 18:27 | XMS_ITS | Encounter Summary ---
[place] [address] Care Team Providers Care Mortgage Field Inspector Name Role Phone Cb Florence Primary Care Provider +1- [phone] Encounter Details Date Type Department Care Team (Latest Contact Info) Description 07/29/2020 2:19 PM EST - 07/29/2020 11:59 PM EST Hospital En[place] [id number] PAH (pulmonary artery hypertension); COPD, moderate Discharge Disposition: Home Social History Tobacco Use [...] sulfamethoxazole-trim ethoprim DS (Bactrim DS) 800-160 mg TabletIndications:MAILS SUPERVISOR D, moderate Take 1 tablet by mouth [...] Diagnosis Comments COMMON PULMONARY FUNCTION TEST Routine 07/29/2020 12:00 AM EST PAH (pulmonary artery hypertension) COPD, moderate documented in this encounter Results * Pulmonary Function Testing (07/29/2020 12:00 AM [...] classified documented in this encounter Care Teams Mortgage Field Inspector Relationship Specialty Start Date End Date Cb Florence PA [address] [place] [address] PCP - General Family Medicine 04/08/20 documented as of this encounter
--- OUTSIDE RECORDS SUMMARY | 2024-03-17 18:27 | XMS_ITS | Encounter Summary ---
[place] [address] Care Team Providers Care Axle Inspector Name Role Phone Cb Florence Primary Care Provider +1- [phone] Encounter Details Date Type Department Care Team (Late st Contact Info) Description 12/16/2019 Telephone [place] [id number] Lori Candelario Social History Tobacco Use Types Packs/Day Years [...] on filedocumented in this encounter Care Teams Axle Inspector Relationship Specialty Start Date End Date Cb Florence PA [address] [place], [place] [id number] PCP - General Family Medicine 11/13/18 03/29/20 documented as of this encounter
--- OUTSIDE RECORDS SUMMARY | 2024-03-17 18:27 | XMS_ITS | Encounter Summary ---
[place] [address] Care Team Providers Care Motorcycle Builder Name Role Phone Cb Florence Primary Care Provider +1- [phone] Reason for Visit * Reason Onset Date Comments Referral 03/18/2020 Encounter Details Date Type Department Care Team (Late st Contact Info) Description 03/18/2020 [place] [address] Lucrecia Dougherty Referral Social History Tobacco Use Types Packs/Day Years [...] encounter Miscellaneous Notes * Telephone Encounter - Georgette Ren - 03/23/2020 12:50 PM EDT Patient is calling the office back very frustrated that she hasn't been able to schedule yet. The patient is wondering if someone would be able to reach out to her before the end of the week. [phone] * Telephone Encounter - Lucrecia Dougherty - 03/18/2020 2:25 PM EDT Caller: Virginie [facility] If not PT/Relation to PT: [facility] Best number to reach caller: [phone] Reason for the Call: Schedule EMG from the referral that was sent. To check on the status of their referral: Yes If not, what is the reason for their call: If their referral has not been reviewed by the department, ask these questions below so the processcan get started sooner: Has the patient seen another Neurologist: No If so, when and where: Has the patient had any imagining done: No If so, when and where: Virginie stated Saturday- works for best for the patient, and mid morning is preferred. documented in this encounter Plan of Treatment Not on file documented as of this encounter Visit Diagnoses Not on filedocumented in this encounter Care Teams Motorcycle Builder Relationship Specialty Start Date End Date Cb Florence PA [address] [place] [address] PCP - General Family Medicine 04/08/20 documented as of this encounter
--- OUTSIDE RECORDS SUMMARY | 2024-03-17 18:27 | XMS_ITS | Encounter Summary ---
[place] [address] Care Team Providers Care Watch Train Assembler Name Role Phone Cb Florence Primary Care Provider +1- [phone] Reason for Visit * Reason Onset Date Comments Oxygen Dependence 03/14/2020 Certificate of Medical Necessity Encounter Details Date Type Department Care Team (Late st Contact Info) Description 03/14/2020 Tele[place] [address] Suzanne Sears RN Oxygen Dependence [...] Telephone Encounter - Suzanne Sears RN - 03/23/2020 12:43 PM EDT Faxed completed Certificate of Medical Necessity for Oxygen, signed by Dr. Holloway, to [facility]. This covered the following: E0424 Regulator O2 Stationary 0-8 LPM E1390 Concentrator Oxlife 3 LPM E1392 Portable Oxygen Fax submission confirmation time stamped for 03/14/2020 @ 0855. 4 pages with cover sheet. Copy of Certificate of Medical Necessity sent to scanning for inclusion to patient records. documented in this encounter Plan of Treatment Not on file documented as of this encounter Visit Diagnoses Not on filedocumented in this encounter Care Teams Watch Train Assembler Relationship Specialty Start Date End Date Cb Florence PA [address] [place] [address] PCP - General Family Medicine 11/13/18 03/29/20 documented as of this encounter
--- OUTSIDE RECORDS SUMMARY | 2024-03-17 18:27 | XMS_ITS | Encounter Summary ---
[place] [address] Care Team Providers Care Bridge Worker Name Role Phone Cb Florence Primary Care Provider +1- [phone] Encounter Details Date Type Department Care Team (Latest Contact Info) Description 01/20/2021 2:30 PM EDT - 01/20/2021 11:59 PM EDT Hospital En[place] [id number] COPD, moderate; PAH (pulmonary artery hypertension) Discharge Disposition: Home [...] Sig Dispensed Refills Start Date End Date Narcan 4 mg/actuation Gleason, Non-Aerosol ADMINISTER A SINGLE SPRAY INTRANASALLY INTO ONE NOSTRIL. CALL 911. DECEMBER REPEAT X1. 01/11/2021 triamcinolone (Kenalog) 0.1 % Ointment as needed. [...] CLASSIC OXYGEN CONCENTRATOR MISC) 3 L by [facility] [...] Inhalational Spacing Device Spcr [facility]Non-Drug; Combo Route) route daily. promethazine (PHENERGAN) 25 mg tablet Take 25 mg by mouth every 6 hours as needed. MULTIVITAMIN ORAL Take 2 tablets by mouth daily. ASCORBATE CALCIUM (VITAMIN C ORAL) Take 1 tablet by mouth daily. diazePAM (Valium) 5 mg Tablet TAKE 1 [...] sulfamethoxazole-trim ethoprim DS (Bactrim DS) 800-160 mg TabletIndications:SALICYLIC ACID BLENDER D, moderate Take 1 tablet by mouth [...] Diagnosis Comments COMMON PULMONARY FUNCTION TEST Routine 01/20/2021 2:48 PM EDT COPD, moderate PAH (pulmonary artery hypertension) documented in this encounter Results * Pulmonary [...] / FVC LLN 68 % COMPAS PFT [id number] Actual Pre-BD 0.68 L/s COMPAS PFT VGS67-85 Pre-BD % of Predicted 32 % COMPAS PFT OZN04-73 Predicted 2.14 L/s COMPAS PFT WBC86-93 Pre-BD Z-Score -2.58 COMPAS PFT DLCO Hb [...] diseases documented in this encounter Care Teams Bridge Worker Relationship Specialty Start Date End Date Cb Florence PA [address] [place] [address] PCP - General Family Medicine 04/08/20 documented as of this encounter
--- OUTSIDE RECORDS SUMMARY | 2024-03-17 18:27 | XMS_ITS | Encounter Summary ---
[place] [address] Care Team Providers Care Shearing Machine Tender Name Role Phone Cb Florence Primary Care Provider +1- [phone] Encounter Details Date Type Department Care Team (Late st Contact Info) Description 04/11/2020 Telephone [place] [id number] Lamont Cardenas Social History Tobacco Use Types Packs/Day Years [...] encounter Miscellaneous Notes * Telephone Encounter - Lamont Cardenas - 04/11/2020 2:35 PM EDT Reviewed office note from Dr. Holloway from 04/08. As of today 04/11, encounter is still open; unsureif patient needs f/u appointment. No AVS instructions included in encounter at this time. documented in this encounter Plan of Treatment Not on file documented as of this encounter Visit Diagnoses Not on filedocumented in this encounter Care Teams Shearing Machine Tender Relationship Specialty Start Date End Date Cb Florence PA [address] [place] [address] PCP - General Family Medicine 04/08/20 documented as of this encounter
--- OUTSIDE RECORDS SUMMARY | 2024-03-17 18:27 | XMS_ITS | Encounter Summary ---
[place] [address] Care Team Providers Care License Examiner Name Role Phone Cb Florence Primary Care Provider +1- [phone] Encounter Details Date Type Department Care Team (Late st Contact Info) Description 12/09/2019 Telephone [place] [address] Stef Paul, RN Social History Tobacco Use Types Packs/Day [...] Telephone Encounter - Stef Paul RN - 12/10/2019 9:15 AM EDT Returned call to patient to discuss below, was not able to speak with patient or leave a message asa recording stated this number has calling restrictions that have prevented completion of your call. Will send a [facility] message to patient asking her to call the office. Per Dr. Keller: ?? Ok to continue the medication. Can do telehealth f/u call when we can. Thanks Rich * Telephone Encounter - Stef Paul RN - 12/09/2019 1:58 PM EDT Patient calls the office leaving a message on the RN voicemail requesting a prescription for Viberzi 100mg twice daily and would like a 90 day supply. Patient last seen in the office in 09/[address] Mujica office note at that time stated patient to return to clinic in 2-3 months, this did not happen. Will forward to Dr. Keller for review and advise. documented in this encounter Plan of Treatment Not on file documented as of this encounter Visit Diagnoses Not on filedocumented in this encounter Care Teams License Examiner Relationship Specialty Start Date End Date Cb Florence PA [address] [place] [address] PCP - General Family Medicine 11/13/18 03/29/20 documented as of this encounter
--- OUTSIDE RECORDS SUMMARY | 2024-03-17 18:27 | XMS_ITS | Encounter Summary ---
Author Organization [facility] [address] Care Team Providers Care Consumer Marketing Manager Name Role Phone Cb Florence Primary Care Provider +1- [phone] Encounter Details Date Type Department Care Team (Latest Contact Info) Description 04/08/2020 12:53 PM EDT - 04/08/2020 11:59 PM EDT Hospital En[place] [phone] COPD, moderate Discharge Disposition: Home Social History [...] Sig Dispensed Refills Start Date End Date lisinopriL (Prinivil;Zestril) 10 mg Tablet daily. 03/14/2020 Miscellaneous Medical Supply MiscIndications:PAH (pulmonary artery hypertension) [...] CLASSIC OXYGEN CONCENTRATOR MISC) 3 L [place] [facility]Non-Drug; Combo Route) route nightly. diphenoxylate-atropin e (LOMOTIL) 2.5-0.025 mg Tablet Take 1 tablet by mouth 4 times daily. DO NOT restarted this unless you are having diarrhea. 120 tablet 7 06/11/2014 albuterol (PROVENTIL HFA;VENTOLIN HFA) 90 mcg/actuation HFA Aerosol Inhaler Inhale 2 puffs into the lungs every 4 hours as needed. Use with spacer Inhalational Spacing Device Spcr 2 puffs by [facility].(Non-Drug; Combo Route) route daily. promethazine (PHENERGAN) 25 [...] lung Take 10 mg by mouth daily. meloxicam (MOBIC) 15 mg Tablet daily. 04/08/2020 07/14/2021 eluxadoline (Viberzi) 100 mg TabletIndications:Irr itable bowel syndrome with diarrhea Take 100 mg by mouth daily. 30 tablet 1 01/08/2020 07/14/2021 Viberzi 100 mg TabletIndications:Irr itable bowel syndrome with diarrhea Take 1 tablet by mouth twice daily 60 tablet 5 01/08/2020 07/14/2021 sulfamethoxazole-trim ethoprim DS (Bactrim DS) 800-160 mg TabletIndications:HOME CARE PROVIDER D, moderate Take 1 tablet by mouth 2 times daily. 14 tablet 1 10/09/2019 01/20/2021 gabapentin (NEURONTIN) 300 mg Capsule Take 1 [...] Procedure Notes * Lester Pritchard MD - 04/08/2020 5:53 PM EDTAssociated Order(s): PULMONARY FUNCTION TEST Pulmonary Function Test Interpretation Impression: Moderate obstructive ventilatory defect (FEV1 60-69% predicted) Reduced FVC suggests possible restrictive ventilatory defect. This could be evaluated by lung volume measurements. Uncorrected single-breath diffusion capacity for carbon monoxide (DLCO) was reduced. This occurs when there is a barrier to gas diffusion at the alveolar- capillary interface. LESTER PRITCHARD MD 04/08/2020 documented in this encounter Plan of Treatment Not on file documented as of this encounter Procedures Procedure Name Priority Date/Time Associated Diagnosis Comments COMMON PULMONARY FUNCTION TEST Routine 04/08/2020 5:53 PM EDT COPD, moderate documented in this encounter Results [...] MD 04/08/2020 Osmany Overton MD PFT ORDERABLES documented in this encounter Visit Diagnoses Diagnosis COPD, moderate Chronic airway obstruction, not elsewhere classified documented in this encounter Care Teams Consumer Marketing Manager Relationship Specialty Start Date End Date Cb Florence PA [address] [place] [address] PCP - General Family Medicine 04/08/20 documented as of this encounter
--- OUTSIDE RECORDS SUMMARY | 2024-03-17 18:27 | XMS_ITS | Encounter Summary ---
[place] [address] Care Team Providers Care Aviation Ordnance Officer Name Role Phone Cb Florence Primary Care Provider +1- [phone] Encounter Details Date Type Department Care Team (Late st Contact Info) Description 04/22/2020 Telephone [place] [phone] Kena Pagan LNA Social History Tobacco Use Types Packs/Day Years [...] encounter Miscellaneous Notes * Telephone Encounter - Kena Pagan LNA - 04/22/2020 11:16 AM EDT Pt called to schedule Echo, pft and f/u with Dr. Thorne on 07/29. Pt aware date, time, location. documented in this encounter Plan of Treatment Not on file documented as of this encounter Visit Diagnoses Not on filedocumented in this encounter Care Teams Aviation Ordnance Officer Relationship Specialty Start Date End Date Cb Florence PA [address] [place] [address] PCP - General Family Medicine 04/08/20 documented as of this encounter
--- OUTSIDE RECORDS SUMMARY | 2024-03-17 18:28 | XMS_ITS | Encounter Summary ---
[place] [address] Care Team Providers Care Vertical Boring Mill Operator Name Role Phone Cb Florence Primary Care Provider +1- [phone] Reason for Visit * Reason Onset Date Comments Prior Authorization 11/28/2018 Encounter Details Date Type Department Care Team (Late st Contact Info) Description 11/28/2018 Tele[place] [phone] Amanda Sanchez CCMA Prior Authorization Social History Tobacco Use Types Packs/Day Years [...] encounter Miscellaneous Notes * Telephone Encounter - Amanda Sanchez LNA - 11/28/2018 11:09 AM EDT Medication Prior Authorization 4L Gastroenterology / Hepatology at [facility], [address] Subscriber Insurance: [employer] [facility] Part D Phone: Fax: Physician: Osmany Keller Return Pharmacy: [facility] Fax: Medication Requested: Viberzi Strength:100mg Frequency: Twice Daily Disp.: 180 Refills: 1 Currently taking: Diagnosis for this medication: IBS-D ICD-10 code: K58.0 Prior medications trialed in this patient: Medication: Outcome/Adverse Reactions: Decision: Approved Tracking number/Case number/Reference number: [id number] Effective date: 11/28/2018 to 05/30/2019 Start: End: documented in this encounter Plan of Treatment Not on file documented as of this encounter Visit Diagnoses Not on filedocumented in this encounter Care Teams Vertical Boring Mill Operator Relationship Specialty Start Date End Date Cb Florence PA [address] [place] [address] PCP - General Family Medicine 11/13/18 03/29/20 documented as of this encounter
--- OUTSIDE RECORDS SUMMARY | 2024-03-17 18:28 | XMS_ITS | Encounter Summary ---
[place] [address] Care Team Providers Care Candy Wrapping Machine Operator Name Role Phone Cb Florence Primary Care Provider +1- [phone] Reason for Visit * Reason Onset Date Comments Other 12/12/2018 Nebulizer Order Encounter Details Date Type Department Care Team (Late st Contact Info) Description 12/12/2018 Telephone [place] [address] Suzanne Seasr RN Other (Nebulizer Order) Social History Tobacco Use Types Packs/Day [...] Telephone Encounter - Suzanne Sears RN - 12/12/2018 7:39 AM EDT Faxed copy of written confirmation of order for nebulizer hand help disp kit. [id number] 6 each 3 months. Fax submission confirmation time stamped for 12/12/2018 @ 9780. 2 pages. documented in this encounter Plan of Treatment Not on file documented as of this encounter Visit Diagnoses Not on filedocumented in this encounter Care Teams Candy Wrapping Machine Operator Relationship Specialty Start Date End Date Cb Florence PA [address] [place] [address] PCP - General Family Medicine 11/13/18 03/29/20 documented as of this encounter
--- OUTSIDE RECORDS SUMMARY | 2024-03-17 18:28 | XMS_ITS | Encounter Summary ---
Author Organization [facility] [place] [address] Care Team Providers Care Dramatic Coach Name Role Phone Cb Florence Primary Care Provider +1- [phone] Reason for Visit * Diagnostic Test (Routine) - Closed Specialty Diagnoses / Procedures Referred By Chava alejo Referred To Contact Radiology Diagnoses Type 2 diabetes mellitus with complication, with long-term current use of insulin Procedures NM Gastric Emptying Scan Mary Alice Scanlon MD [facility] [place] [address] [place] [address] Referral ID Status Reason Start Date Expiration Date V isits Requested Visits Authorized [id number] Closed Specialty Service Requested 10/08/2018 10/08/2019 1 1 Encounter Details Date Type Department Care Team (Latest Contact Info) Description 01/01/2019 9:44 AM EDT - 01/01/2019 9:45 AM EDT Hospital Encounter [place] [address] Osmany Keller MD [facility] [place] [address] Discharge Disposition: Home Social History [...] below. ? Electronically signed by: Anatoliy Flores [facility] ([phone]), at 01/01/2019 5:35 PM Narrative 01/01/2019 5:35 [...] on filedocumented in this encounter Care Teams Dramatic Coach Relationship Specialty Start Date End Date Cb Florence PA [address] [place] [address] PCP - General Family Medicine 11/13/18 03/29/20 documented as of this encounter
--- OUTSIDE RECORDS SUMMARY | 2024-03-17 18:28 | XMS_ITS | Encounter Summary ---
[place] [address] Care Team Providers Care Green Promotions Specialist Name Role Phone Cb Florence Primary Care Provider +1- [phone] Reason for Referral * Diagnostic Test (Routine) - Closed Specialty Diagnoses / Procedures Referred By Chava alejo Referred To Contact Radiology Diagnoses Type 2 diabetes mellitus with complication, with long-term current use of insulin Procedures NM Gastric Emptying Scan Mary Alice Scanlon MD [facility] [place] [address] [place] [address] Referral ID Status Reason Start Date Expiration Date V isits Requested Visits Authorized [id number] Closed Specialty Service Requested 10/08/2018 10/08/2019 1 1 Reason for Visit * Diagnostic Test (Routine) - Closed Specialty Diagnoses / Procedures Referred By Chava alejo Referred To Contact Radiology Diagnoses Type 2 diabetes mellitus with complication, with long-term current use of insulin Procedures NM Gastric Emptying Scan Mary Alice Scanlon MD [facility] [address] [address] [place] [address] Referral ID Status Reason Start Date Expiration Date V isits Requested Visits Authorized [id number] Closed Specialty Service Requested 10/08/2018 10/08/2019 1 1 Encounter Details Date Type Department Care Team (Latest Contact Info) Description 01/01/2019 9:30 AM EDT - 01/01/2019 9:43 AM EDT Hospital Encounter [place] [address] Osmany Keller MD [facility] [place] [address] Type 2 diabetes mellitus with complication, with long-term current use of insulin Discharge Disposition: Home Social History Tobacco Use [...] Inhalational Spacing Device Spcr 2 puffs by [facility].(Non-Drug; Combo Route) route daily. promethazine (PHENERGAN) 25 [...] S documented in this encounter Visit Diagnoses Diagnosis Type 2 diabetes mellitus with complication, with long-term current use of insulin documented in this encounter Administered Medications Inactive Administered Medications - up to 3 most recent administrations Medication Order MAR Action Action Date Dose Rate Site technetium (Tc-99m) sulfur colloid injection 0.8 mCi 0.8 mCi, Oral, ONCE PRN, 1 dose, Starting on Jessie 01/01/19 at 1005, Until Jessie 01/01/19 at 1005, Per Protocol, Routine Given 01/01/2019 10:05 AM EDT 0.8 mCi documented in this encounter Care Teams Green Promotions Specialist Relationship Specialty Start Date End Date Cb Florence PA [address] [place] [address] PCP - General Family Medicine 11/13/18 03/29/20 documented as of this encounter
--- OUTSIDE RECORDS SUMMARY | 2024-03-17 18:29 | XMS_ITS | Encounter Summary ---
Author Organization [facility] [address] Care Team Providers Care Candy Cutter Machine Name Role Phone ArmstrongMary Alice davis Rajendra ROY Primary Care Provider [phone] Reason for Visit * Reason Comments Follow-up Encounter Details Date Type Department Care Team (Late st Contact Info) Description 01/01/2018 9:30 AM EDT Office [place] [address] Osmany Keller MD [facility] [place] [address] Esophageal dysmotility; Irritable bowel syndrome with diarrhea; Chronic abdominal pain; Gastroesophageal reflux disease, esophagitis presence not specified [...] Sign Reading Time Taken Comments Blood Pressure 158/92 01/01/2018 9:26 AM EDT Pulse 79 01/01/2018 9:26 AM EDT Temperature - - Respiratory Rate - - Oxygen Saturation - - Inhaled Oxygen Concentration - - Weight 85.5 kg (188 lb 6.4 oz) 01/01/2018 9:26 A M EDT Height 154.4 cm (5' 0.8) 01/01/2018 9:26 AM EDT Body Mass Index 35.83 01/01/2018 9:26 AM EDT documented in this encounter Progress Notes * Osmany Keller MD - 01/01/2018 9:30 AM EDT Poppy M Arnoldo presents for consultation and further evaluation of ongoing GI symptoms Has been off the agent for diarrhea control in IBS. Ran out for past month. Has had more flatus of late. In past had been on low fodmap diet - no appreciable change Had taken antibiotics for left arm infection - got thrush - took diflucan and that cleared it Swallows are better after the BOTOX treatment Having more heartburn of late, was off dexilant Has tried altoids and they help Weight is steady Bowels are looser Bloat is there, abdominal pain can bother, gets distended If passes flatus or defecates, can get transient relief. Charcoal was not helpful IB KIRK was also not helpful Some sleep disturbance - uses night O2 Only sleeps 4 hours at a time PAST MEDICAL HISTORY 1. COPD; on home oxygen 2-3 liters. 2. IBS with diarrhea. 3. 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 Verified October 2015. 5. Reflux. 6. Chronic back and neck pain, treated with Vicodin. 7. Anxiety. 8. Depression. 9. Hypertension, treated with atenolol and spironolactone. 10. Elevated cholesterol, treated with simvastatin. 11. Obesity. 12. Diabetes; hemoglobin A1c 09/12/16 was 16.2. 13. Fractured ribs -??occurred after fallApril 2017. ? PAST SURGICAL HISTORY 1. Emergency hernia repair May 2011, [facility]. 2. Cholecystectomy 11/24/12. 3. Cervical spine fusion surgery August 2013. 4. Lumbar discectomy 08/2014. 5. Left hand surgery April 2017, [facility] -??tendon release.. MEDICATION/DIET TRIALS 1. Neomycin - no help. 2. Rifaximin - some help with gas and bloating on the first trial; no benefit on the second trial. 3. Align x90 days - no help. 4. Low-FODMAP diet - no help. 5. Bentyl - no significant help with esophageal spasms. 6. Lomotil - has helped diarrhea symptoms. 7. Tetracycline - no help with gas and bloating. 8. Culturelle - no help with gas and bloating. 9. Dexilant - helps reflux symptoms. 10. Flagyl - minimal help with gas and bloating. 11. Cardizem - no help with chest pain for a short trial, but caused low blood pressure and fainting. 12. Ciprofloxacin - no significant help with gas and bloating. 13. Fior tea - made reflux symptoms worse. 14. Albuterol puffer (for esophageal spastic disorder) - no help with esophageal spastic disorder. 15. Azithromycin - no help with gas and bloating. 16. Eluxadoline - significant help with IBS and diarrhea symptoms; no side effects. PMHx: Patient Active Problem List Diagnosis Code ??? [...] ??? 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 Influenza vaccination contraindicated Z28.09 PHYSICAL EXAM: Most Recent Vitals: 01/01/18 0926 BP: (!) 158/92 Pulse: 79 NAD Chest clear Heart normal Abdomen - distended, normal BS, diffusely stated to be tender on palpation, no organomegaly IMPRESSION: Bothers everywhere in abdomen, and stools are a bit more frequent off the viberzi past weeks. Also some increase in heartburn past weeks off dexilant. There is baseline bloat, flatus, distentiona nd abdominal pain, for which many therapeutic trials have been initiated (see above). Shegets transient relief of these symptoms with passage of flatus or defecation, suggesting decompressing her lumen is helpful. On chronic opiates, there could be contraction and distention, related to symptom production. The previous trial of charcoal was short and she felt it was not helpful. There is opportunity to try a longer use of decreasing fermentation. A food diary may again be revealing. T he peppermint intake is helpful for esophagus, less so for colonic symptoms. The injection of BOTOXhas been working well to control swallow symptoms, and we will plan to repeat that prn. I will set up a follow-up clinic appointment in a few months to monitor symptoms. 20 of 30 minutes spent in direct [id number] counseling and the rest in taking history and performing exam. PLAN: Try charcoal again for 2 weeks. Restart viberzi and dexilant Diary of food intake versus symptoms Reconnect with Pain Clinic (Dr. Hartman) for overall pain status management and specific back/hip painmanagement with injections, as before RTC GIF in April 2018 Osmany Keller MD Section of Gastroenterology and Hepatology documented in this encounter Plan of Treatment Not on file documented as of this encounter Visit Diagnoses Diagnosis Esophageal dysmotility Dyskinesia of esophagus Irritable bowel syndrome with diarrhea Irritable bowel syndrome Chronic abdominal pain Abdominal pain, unspecified site Gastroesophageal reflux disease, esophagitis presence not specified documented in this encounter Care Teams Candy Cutter Machine Relationship Specialty Start Date End Date Mary Alice Cage APRN PCP - General 10/12/11 11/12/18 documented as of this encounter
--- OUTSIDE RECORDS SUMMARY | 2024-03-17 18:29 | XMS_ITS | Encounter Summary ---
Author Organization [facility] [address] Care Team Providers Care Coffee Machine Technician Name Role Phone Mary Alice Cage APRN Primary Care Provider Reason for Visit * Reason Onset Date Comments Medication Refill 12/09/2017 Encounter Details Date Type Department Care Team (Late st Contact Info) Description 12/09/2017 Refill [place] [address] Osmany Keller MD [facility] [place] [address] Social History Tobacco Use Types Packs/Day Years [...] on filedocumented in this encounter Care Teams Coffee Machine Technician Relationship Specialty Start Date End Date Mary Alice Cage APRN PCP - General 10/12/11 11/12/18 documented as of this encounter
--- OUTSIDE RECORDS SUMMARY | 2024-03-17 18:29 | XMS_ITS | Encounter Summary ---
[place] [address] Care Team Providers Care Boat Engines Installer Name Role Phone Mary Alice Cage APRN Primary Care Provider Reason for Visit * Reason Onset Date Comments Prior Authorization 04/29/2018 Encounter Details Date Type Department Care Team (Late st Contact Info) Description 04/29/2018 Telephone [place] [address] Gardenia Bueno CMA GASTROENTEROLOGY DEPT Prior Authorization Social History Tobacco Use Types [...] Telephone Encounter - Gardenia Bueno CMA - 04/29/2018 2:14 PM EDT Medication Prior Authorization 4L Gastroenterology / [place] [address] ?? Subscriber Insurance: [employer] ?? Phone: Fax: ? Physician: Osmany Keller ? Return ?? Pharmacy: [facility] ? Medication Requested: Viberzi ?? Strength: 100 mg Frequency: BID ?? Disp.: 60 Refills: 5 ?? Currently taking: yes ?? Diagnosis for this medication: IBS-D ?? ICD-10 code: K58.0 ? Prior medications trialed in this patient: xifaxan,lomotil, imodium ? Medication: Outcome/Adverse Reactions: treatment failure ?? Decision: approved ? Tracking number/Case number/Reference number: [id number] ?? Effective date: ?? Start: End: 10/27/2018 documented in this encounter Plan of Treatment Not on file documented as of this encounter Visit Diagnoses Not on filedocumented in this encounter Care Teams Boat Engines Installer Relationship Specialty Start Date End Date Mary Alice Cage APRN PCP - General 10/12/11 11/12/18 documented as of this encounter
--- OUTSIDE RECORDS SUMMARY | 2024-03-17 18:29 | XMS_ITS | Encounter Summary ---
Author Organization [facility] [address] Care Team Providers Care Building Performance Specialist Name Role Phone Mary Alice Cage APRN Primary Care Provider Reason for Visit * Reason Onset Date Comments Medication Refill 01/02/2018 Encounter Details Date Type Department Care Team (Late st Contact Info) Description 01/02/2018 Ref[place] [address] Osmany Keller MD [facility] [place] [address] Gastroesophageal reflux disease, esophagitis presence not specified [...] as of this encounter Visit Diagnoses Diagnosis Gastroesophageal reflux disease, esophagitis presence not specified documented in this encounter Care Teams Building Performance Specialist Relationship Specialty Start Date End Date Mary Alice Cage APRN PCP - General 10/12/11 11/12/18 documented as of this encounter
--- OUTSIDE RECORDS SUMMARY | 2024-03-17 18:29 | XMS_ITS | Encounter Summary ---
Author Organization [facility] [place] [address] Care Team Providers Care Office Machine Embossograph Operator Name Role Phone Mary Alice Cage MANUELA Primary Care Provider [phone] Encounter Details Date Type Department Care Team (Late st Contact Info) Description 11/05/2017 1:46 PM EDT Anesthesia [place] [address] Tara Madrid MD [facility] [place] [address] DelilahKimberly Means CRNA [facility] [place] [address] Anesthesia Record Procedure Summary Procedure Name Responsible Anesthesiologist Anesthesia Start Time Anesthesia Stop Time EGD, W DIRECTED SUBMUCOSAL INJECTION(S) (WRVU 2.39) Tara Madrid MD 11/05/17 1346 11/05/17 1422 Events Date Time Event Comment 11/05/2017 1330 1346 Start 1350 AN Verify 1350 An Start Data 1352 An Induction 1353 Anesthesia Ready 1417 an stop data 1422 Recovery or ICU Handoff Kathy ent care was transferred to the destination unit staff after review of the patient's medical history, current anesthetic/surgical status and plan, according to the Provider Handoff Checklist. 1422 Stop Meds Name Total IV Lidocaine 60 mg Propofol 100 mg Propofol INF 155.88 mg lactated Ringers infusion 1,000 mL * Agents Name O2 Air N2O * Blood No blood administrations on file. Lines, Drains, and Airways Type Details Placement Removal Incision 11/04/12; 1412; abdomen; LDA not present [...] Yana Yuen RN 07/12/21 0158 by Shobha aPdilla, KAMLA (RETIRED) Peripheral IV Line - Single Lumen 10/26/15; 22 gauge, 1 in length; median cubital vein (antecubital fossa), left; 11/25/17 (Auto removal via utility); 0921 (Auto removal via utility) 10/26/15 0000 by Davon Kiser RN 11/25/17 0921 by Gardenia Nuñez (RETIRED) Peripheral IV Line - Single Lumen 11/05/17; 1115; cephalic vein (lateral side of arm), right; [id number] catheter system; 20 gauge; Judi Padron RN; intradermal injection; 11/05/17; 1520 11/05/17 1115 by Soledad Padron RN 11/05/17 1520 by Kandi Monteiro RN documented in this encounter Social History [...] OR Notes * Anesthesia Postprocedure Evaluation - Tara Madrid MD - 11/05/2017 2:59 PM EDT [facility] Department of Anesthesiology Post-procedure Note Patient: Poppy Mclaughlin Procedure Summary Date Anesthesia Start Anesthesia Stop Room / Location 11/05/17 1346 1422 [facility] ENDO 5 / [facility] ENDOSCOPY Procedure Diagnosis Surgeon Responsible Provider EGD, W DIRECTED SUBMUCOSAL INJECTION(S) (NUTCRACKER ESOPHAGUS -BOTOX INJECTION; (consult)) Osmany Keller MD Procopio, Marcia A, MD All Anesthesia Providers: Anesthesiologist: Tara Madrid MD MANAGEMENT LIAISON: Kimberly Mazariegos CRNA Most Recent Vitals: 11/05/17 1450 BP: 162/85 Pulse: Resp: 16 SpO2: Pain 0 (11/05/17 1450) Patient Location: PACU/[facility] Level of Consciousness: Awake and Alert Pain Management: Satisfactory Analgesia PONV: None Cardiovascular Status: At Baseline and Hemodynamically Stable Respiratory Status: At Baseline and Room Air Postoperative Fluid Status: Intravascular EUvolemia Possible Anesthetic Complications: NONE apparent at time of evaluation Final Primary Anesthesia Type: MAC (The anesthetic type performed was the same as planned.) Comments: TARA MADRID MD * Anesthesia Preprocedure Evaluation - Tara Madrid MD - 11/05/2017 1:30 PM EDT Pre-Anesthesia Evaluation for: Poppy Mclaughlin a 57 y.o. female. Procedure(s): EGD, UPPER GI ENDOSCOPY Patient Active Problem List Diagnosis ??? Influenza vaccination contraindicated ??? Mixed restrictive [...] Past Surgical History: Procedure Laterality Date ??? PRO ALLOGRAFT FOR SPINE SURGERY ONLY STRUCTURAL 09/08/2013 ALLOGRAFT FOR SPINE SURGERY ONLY; STRUCTUAL performed by Rios Acuna MD at [facility] MAIN OR ??? PRO ANTERIOR INSTRUMENTATION 2-3 VERTEBRAL SEGMENTS 09/08/2013 @ANT. SPINAL INSTRUMENTATION, 2-3 VERTEBRA, SEGMENTED performed by Rios Acuna MD at [facility] [place] ??? PRO ARTHRD ANT INTERDY CERVCL BELW C2 EA ADDL NTRSPC 09/08/2013 @ARTHRODESIS ANT INTERBDY CERVCL BELOW C2 EA ADDL INTRSPACE performed by Rios Acuna MD at [facility] MAIN OR ??? PRO ARTHRODESIS, ANT INTERBODY,DECOMPRESSION; CERVICAL BELOW C2 09/08/2013 ARTHRODESIS, ANT INTERBODY,DECOMPRESSION; CERVICAL BELOW C2 performed by Rios Acuna MD at [facility] MAIN OR ??? PRO DECOMPRESS SPINAL CORD, 1 SEG Right 08/31/2014 TRANSPEDICULAR LUMBAR DECOMPRESSION SPINAL CORD,EQUINA & NERVE ROOTS, ONE LVL. performed by Rios Acuna MD at [facility] MAIN OR ??? PRO LAP, CHOLECYSTECTOMY/GRAPH 11/04/2012 LAPAROSCOPIC CHOLECYSTECTOMY WITH CHOLANGIOGRAM performed by Abel Carlton MD at [facility] OR ??? PRO UNLISTED DIAGNOSTIC GASTROENTEROLOGY PROCEDURE [address] jimenez ??? PRO UPPER GI ENDOSCOPY, BIOPSY N/A 10/26/2015 UPPER GASTROINTESTINAL ENDOSCOPY,WITH BIOPSY SINGLE OR MULTIPLE performed by Apolinar Sepulveda MDat [facility] ENDOSCOPY ??? PRO UPPER GI ENDOSCOPY, DIAGNOSTIC N/A 10/26/2015 EGD, UPPER GI ENDOSCOPY performed by Apolinar Sepulveda MD at [facility] ENDOSCOPY ??? PRO UPPER GI ENDOSCOPY, DIAGNOSTIC N/A 10/02/2016 EGD, UPPER GI ENDOSCOPY performed by Justin Starkey MD at [facility] END[facility]COPY Social History Substance Use Topics ??? Smoking status: Current Every Day Smoker Packs/day: 1.50 Years: 20.00 Types: Cigarettes ??? Smokeless tobacco: Never Used Comment: pt would like to speak with someone about quiting. Tobacco cessation packet given ??? Alcohol use No Comment: quit 2011 History Drug Use ??? Yes ??? Special: Narcotics Comment: pain meds 3x day Allergies Allergen Reactions ??? Pneumococcal Vaccine Other (See Comments) Cold/Flu like symptoms ??? Albuterol Other (See Comments) Liquid--Per patient, she gets hyperactivity. ??? Egg Nausea And Vomiting Medications: MAR and/or home medications have been reviewed. Physical Exam: Most Recent Vitals: 11/05/17 1057 BP: 151/84 Pulse: 78 SpO2: 97% Body mass index is 36.45 kg/(m^2). Weight: 86.6 kg (191 lb) Airway Assessment: Mallampati: I TM distance: >3 FB Neck ROM: full Cardiovascular Assessment: cardiovascular exam normal Pulmonary Assessment: pulmonary exam normal Dental Assessment: Comment: Poor dentition, multiple missing and broken, not loose according to patient Misc Assessment: Patient is wearing No contact(s). IV access: Peripheral line Other exam findings: Patient is falling asleep between sentences. States she did not sleep last night at all. 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 Plan discussed with MANAGEMENT LIAISON. PAT Staff Note documented in this encounter Plan of Treatment Not on file documented as of this encounter Visit Diagnoses Not on filedocumented in this encounter Administered Medications Inactive Administered Medications - up to 3 most recent administrations Medication Order MAR Action Action Date Dose Rate Site lactated Ringers infusion 100 mL/hr, Intravenous, CONTINUOUS, Starting on Sat11/05/17 at 1115, Until Sat11/05/17 at 1521, Endoscopy (Day of Procedure) New Bag 11/05/2017 1:46 PM EDT New Bag 11/05/2017 11:16 AM EDT 100 mL/hr 100 mL/hr lidocaine (PF) (XYLOCAINE) 100 mg/5 mL (2 %) injection PRN, Starting on Sat11/05/17 at 1352, Until Sat11/05/17 at 1430, Anesthesia Intra-op, Routine Given 11/05/2017 1:52 PM EDT 60 mg propofol (DIPRIVAN) 10 mg/mL bolus injection (Anesthesia) PRN, Starting on Sat11/05/17 at 1352, Until Sat11/05/17 at 1430, Anesthesia Intra-op Given 11/05/2017 1:53 PM EDT 50 mg Given 11/05/2017 1:52 PM EDT 50 mg propofol (DIPRIVAN) infusion CONTINUOUS PRN, Starting on Sat11/05/17 at 1352, Until Sat11/05/17 at 1430, Anesthesia Intra-op, Routine New Bag 11/05/2017 1:52 PM EDT 200 mcg/kg/min 103.9 mL/hr documented in this encounter Care Teams Office Machine Embossograph Operator Relationship Specialty Start Date End Date Mary Alice Cage APRN PCP - General 10/12/11 11/12/18 documented as of this encounter
--- OUTSIDE RECORDS SUMMARY | 2024-03-17 18:29 | XMS_ITS | Encounter Summary ---
Author Organization [facility] [place] [address] Care Team Providers Care Cardiovascular Sonographer Name Role Phone Cb Florence Primary Care Provider [phone] Encounter Details Date Type Department Care Team (Late st Contact Info) Description 11/13/2018 7:50 PM EDT Ancillary Procedure [place] [address] Andriy Valdez Jr., MD [facility] [place] [address] Social History Tobacco Use Types Packs/Day Years [...] Associated Diagnosis Comments FILM LIBRARY STORAGE ONLY CT HEAD Routine 11/13/2018 7:45 PM EDT documented in this encounter Results * Film Library- Storage Only CT Head (11/13/2018 7:45 PM EDT) Narrative HELENE CHRISTINA - 11/13/2018 7:45 PM EDT This exam is auto-finalizing. It's purpose is for storage only. Andriy Valdez Jr., MD IMG FILM LIBRARY ORDERABLES CARRI [place], [place] documented in this encounter Visit Diagnoses Not on filedocumented in this encounter Care Teams Cardiovascular Sonographer Relationship Specialty Start Date End Date Cb Florence PA [address] [place] [address] PCP - General Family Medicine 11/13/18 03/29/20 documented as of this encounter
--- OUTSIDE RECORDS SUMMARY | 2024-03-17 18:29 | XMS_ITS | Encounter Summary ---
Author Organization [facility] [address] Care Team Providers Care Counselor Aid Name Role Phone Mary Alice Cage APRN Primary Care Provider Reason for Visit * Reason Comments Medication Refill Encounter Details Date Type Department Care Team (Late st Contact Info) Description 08/09/2018 Ref[place] [address] Osmany Keller MD [facility] [place] [address] Irritable bowel syndrome with diarrhea Social History [...] syndrome documented in this encounter Care Teams Counselor Aid Relationship Specialty Start Date End Date Mary Alice Cage APRN PCP - General 10/12/11 11/12/18 documented as of this encounter
--- OUTSIDE RECORDS SUMMARY | 2024-03-17 18:29 | XMS_ITS | Encounter Summary ---
Author Organization [facility] [place] [address] Care Team Providers Care Systems Engineer Name Role Phone Cb Florence Primary Care Provider [phone] Encounter Details Date Type Department Care Team (Late st Contact Info) Description 11/13/2018 7:45 PM EDT Ancillary Procedure [place] [address] Andriy Valdez Jr., MD [facility] [place] [address] Social History Tobacco Use Types Packs/Day Years [...] Associated Diagnosis Comments FILM LIBRARY STORAGE ONLY DX CHEST Routine 11/13/2018 7:43 PM EDT documented in this encounter Results * Film Library- Storage Only DX Chest (11/13/2018 7:43 PM EDT) Narrative HELENE CHRISTINA - 11/13/2018 7:43 PM EDT This exam is auto-finalizing. It's purpose is for storage only. Andriy Valdez Jr., MD IMG FILM LIBRARY ORDERABLES CARRI [place], [place] documented in this encounter Visit Diagnoses Not on filedocumented in this encounter Care Teams Systems Engineer Relationship Specialty Start Date End Date Cb Florence PA [address] [place] [address] PCP - General Family Medicine 11/13/18 03/29/20 documented as of this encounter
--- OUTSIDE RECORDS SUMMARY | 2024-03-17 18:29 | XMS_ITS | Encounter Summary ---
[place] [address] Care Team Providers Care Calculus Professor Name Role Phone MississippiMary Alice davis MANUELA Primary Care Provider Encounter Details Date Type Department Care Team (Late st Contact Info) Description 08/14/2018 [place] [address] Puja Leon Social History Tobacco Use Types Packs/Day Years [...] as of this encounter Miscellaneous Notes * Addendum Note - Estelle Paul RN - 08/14/2018 10:21 AM ESTAddended by: ESTELLE PAUL on: 08/14/2018 10:21 AM Modules accepted: Orders * Telephone Encounter - Estelle Paul RN - 08/14/2018 10:13 AM EST This assembly instructions writer called the pharmacy to clarify what was needed. Pharmacy states that patient would still like to get a three months supply at a time, 180 pills, but this way insurance will only allow onerefill. pharmacy states that they will need a new prescription. Will forward new prescription to Dr. Keller for review and approve. * Telephone Encounter - Puja Leon - 08/14/2018 9:59 AM EST Caller: mari in [place] Call for: nurse Reason for call: med viberzi written for a yrs worth but can only for 6 months worth Call back urgency: routine Ok to leave detailed message? yes Preferred method of communication: [phone] documented in this encounter Plan of Treatment Not on file documented as of this encounter Visit Diagnoses Not on filedocumented in this encounter Care Teams Calculus Professor Relationship Specialty Start Date End Date Mary Alice Cage APRN PCP - General 10/12/11 11/12/18 documented as of this encounter
--- OUTSIDE RECORDS SUMMARY | 2024-03-17 18:29 | XMS_ITS | Encounter Summary ---
[place] [address] Care Team Providers Care Mobile Disc Jockey Name Role Phone Mary Alice Cage APRN Primary Care Provider [phone] Reason for Referral * Diagnostic Test (Routine) - Closed Specialty Diagnoses / Procedures Referred By Chava alejo Referred To Contact Radiology Diagnoses Type 2 diabetes mellitus with complication, with long-term current use of insulin Procedures NM Gastric Emptying Scan Mary Alice Scanlon MD [facility] GENERAL [place] [address] [place] [address] Referral ID Status Reason Start Date Expiration Date V isits Requested Visits Authorized [id number] Closed Specialty Service Requested 10/08/2018 10/08/2019 1 1 Reason for Visit * Reason Comments Follow-up Encounter Details Date Type Department Care Team (Late st Contact Info) Description 10/08/2018 10:00 AM EST Office [place] [phone] Osmany Keller MD [facility] [place] [address] Type 2 diabetes mellitus with complication, with long-term current use of insulin Social History Tobacco Use Types Packs/Day Years [...] Sign Reading Time Taken Comments Blood Pressure 158/97 10/08/2018 9:55 AM EST Pulse 83 10/08/2018 9:55 AM EST Temperature - - Respiratory Rate - - Oxygen Saturation - - Inhaled Oxygen Concentration - - Weight 88.7 kg (195 lb 9.6 oz) 10/08/2018 9:55 A M EST Height 152.4 cm (5') 10/08/2018 9:55 AM EST Body Mass Index 38.2 10/08/2018 9:55 AM EST documented in this encounter Progress Notes * Mary Alice Scanlon - 10/08/2018 10:00 AM EST Images from the original note were not included. Chief Complaint: Poppy Mclaughlin is a 58 y.o. patient with IBS-D and GERD History of Present Illness: RECENT TESTING 1. Colonoscopy, [facility]: normal approximately 2010. 2. Upper endoscopy [facility]: normal approximately 2010. 3. CT scan [facility]: normal. 4. Abdominal ultrasound: gallstones noted. 5. 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 6. Breath hydrogen test 05/13/12: no evidence of bacterial overgrowth; methane overproduction. 7. High-resolution esophageal manometry 10/26/15: evidence of mild EGJ outflow obstruction; hypertensive peristalsis of the body thus characterized as ???nutcracker esophagus?with DCI of 5404. 8. EGD 10/26/15: normal; Z-line at 41. 9. Swosu-gadrq-duik wireless pH capsule 10/26/15 to 10/28/15 off PPI therapy: DeMeester score of 19.2on day one and 13.0 on day two. 10. EGD with Botox injection of the esophagus for treatment of nutcracker esophagus 2/21/17. 11. EGD with Botox injection of the esophagus for treatment of nutcracker esophagus 11/05/17. ?? MEDICATION/DIET TRIALS 1. Neomycin -??no help. 2. Rifaximin -??some help with gas and bloating on the first trial; no benefit on the second trial. 3. Align x90 days -??no help. 4. Low-FODMAP diet -??no help. 5. Bentyl -??no significant help with esophageal spasms. 6. Lomotil -??has helped diarrhea symptoms. 7. Tetracycline -??no help with gas and bloating. 8. Culturelle -??no help with gas and bloating. 9. Dexilant -??helps reflux symptoms. 10. Flagyl -??minimal help with gas and bloating. 11. Cardizem -??no help with chest pain for a short trial, but caused low blood pressure and fainting. 12. Ciprofloxacin -??no significant help with gas and bloating. 13. Fior tea -??made reflux symptoms worse. 14. Albuterol puffer (for esophageal spastic disorder) -??no help with esophageal spastic disorder. 15. Azithromycin -??no help with gas and bloating. 16. Eluxadoline -??significant help with IBS and diarrhea symptoms; no side effects. 17. Robinul - insurance company would not approve. 18. Botox injection of the esophagus - significant help for nutcracker esophagus. 19. Bactrim DS twice daily - no significant help with gas and bloating. 20. Peppermint oil - increased constipation, increased gas, bloating, and flatus INTERVAL HISTORY: Reflux symptoms are minimal following lifestyle modifications and taking Dexilant. Denies any side effects on the medications. For IBS with diarrhea, she trialed peppermint oil and off of Viberzi. She reports that with peppermint oil, her stool was overly hard and she had more burping and flatus. She is currently back on Viberzi and reports that her symptoms are much improved with one normal bowel movement once per day. Off of Viberzi, her stool is loose and five times per day. She reports decreased pain with bowel movement and denies straining with bowel movements. She received Botox injection which she reports helpedwith her symptoms. Her weight continues to be stable at 196 lbs. ?? She reports that she has early satiety and nausea/vomiting. Her biggest complaint today is diffuse abdominal pain, currently 02/18. Abdominal pain is worse with eating, better with burping, passing flatus, and defecating. Denies melena/hematochezia. Currently on a diet which minimizes her abdominal pain. Ate toast this morning, has chocolate bar, and has cake at home. Medications: Outpatient Medications Prior to Visit Medication Sig Dispense Refill ??? levoFLOXacin (LEVAQUIN) 500 mg Tablet Take 500 mg by mouth daily. ??? benzonatate (TESSALON) 100 mg Capsule Take 100 mg by mouth 3 times daily as needed for Cough. ??? fluconazole (DIFLUCAN) 100 mg Tablet Take 100 mg by mouth daily. ??? eluxadoline (VIBERZI) 100 mg Tablet Take 100 mg by mouth 2 times daily. 180 tablet 1 ??? dexlansoprazole (DEXILANT) 60 mg Cap, Delayed Rel., Multiphasic Take 1 capsule by mouth daily. 90 capsule 3 ??? predniSONE (DELTASONE) 10 mg Tablet As dIRECTED ??? nystatin (MYCOSTATIN) 100,000 unit/mL Suspension 4 times daily. ??? oxyCODONE (ROXICODONE) 10 mg Tablet Take 10 mg by mouth 2 times daily as needed. ??? lisinopril (PRINIVIL;ZESTRIL) 5 mg Tablet daily. ??? guaiFENesin 600 mg Tablet Extended Release 12hr Take 1 tablet by mouth 2 times daily. 60 ??? baclofen (LIORESAL) 10 mg Tablet Take by mouth 2 times daily. ??? meloxicam (MOBIC) 7.5 mg Tablet 2 times daily. ??? hydroCHLOROthiazide (HYDRODIURIL) 25 mg Tablet Take 1 tablet by mouth daily. 30 tablet 12 ??? SYMBICORT 160-4.5 mcg/actuation HFA Aerosol Inhaler Inhale 2 puffs into the lungs 2 times daily. ??? rOPINIRole (REQUIP) 2 mg Tablet Take 2 mg by mouth nightly. Reported on 12/20/2016 ??? gabapentin (NEURONTIN) 300 mg Capsule Take 300 mg by mouth 3 times daily. ??? oxyCODONE (ROXICODONE) 10 mg Tablet Take 20 mg by mouth 2 times daily. ??? albuterol (PROVENTIL) 2.5 mg /3 mL (0.083 %) Solution for Nebulization Take 2.5 mg by nebulization every 4 hours as needed for Wheezing. ??? simvastatin (ZOCOR) 20 mg Tablet Take 20 mg by mouth nightly. ??? OXYGEN-AIR DELIVERY SYSTEMS ( CLASSIC OXYGEN CONCENTRATOR MISC) [address] [facility].(Non-Drug; Combo Route) route nightly. ??? chlorpheniramine (CHLOR-TRIMETON) 4 mg Tablet Take 4 mg by mouth every 6 hours as needed for Allergies. ??? atenolol (TENORMIN) 25 mg Tablet Take 25 mg by mouth daily. ??? diphenoxylate-atropine (LOMOTIL) 2.5-0.025 mg Tablet Take [...] mg Tablet Take 1,000 mg by mouth 3 times daily. ??? Inhalational Spacing Device Spcr [address] [facility].(Non-Drug; Combo Route) route daily. ??? fluticasone (FLONASE) 50 mcg/actuation nasal spray USE ONE SPRAY IN EACH NOSTRIL TWICE DAILY 1 each 3 ??? ipratropium (ATROVENT) 0.06 % nasal spray USE TWO SPRAYS BY NASAL ROUTE 4 TIMES DAILY 15 mL 2 ??? BUPROPION HCL (WELLBUTRIN ORAL) Take 150 mg by mouth 2 times daily. ??? promethazine (PHENERGAN) 25 mg tablet [...] by mouth daily. 90 tablet 3 ??? oseltamivir (TAMIFLU) 75 mg Capsule Take 1 capsule by mouth daily. For exposure to influenza (Patient not taking: Reported on 10/08/2018) 10 capsule 0 ??? Miscellaneous Medical Supply Misc Face mask for nocturnal O2 (Patient not taking: Reported on 08/21/2017) 1 each PRN ??? ASCORBATE CALCIUM (VITAMIN C ORAL) Take 2 tablets by mouth daily. No facility-administered medications prior to visit. Allergies: is allergic to pneumococcal vaccine; albuterol; and egg. PAST MEDICAL HISTORY 1. COPD; on home oxygen 2. IBS with diarrhea. 3. 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 Verified October 2015. 5. Reflux. 6. Chronic back and neck pain, treated with Vicodin. 7. Anxiety. 8. Depression. 9. Hypertension, treated with atenolol and spironolactone. 10. Elevated cholesterol, treated with simvastatin. 11. Obesity. 12. Diabetes mellitus 13. Fractured ribs - occurred after fall April 2017. 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 PAST SURGICAL HISTORY 1. Emergency hernia repair May 2011, [place]. 2. Cholecystectomy 11/24/12. 3. Cervical spine fusion surgery August 2013. 4. Lumbar discectomy 08/2014. 5. Left hand surgery April 2017, [facility] - tendon release. ?? FAMILY HISTORY Noncontributory. No first-degree family member with a history of IBD, celiac disease, or any type of GI malignancy. ?? SOCIAL HISTORY , not currently working, on disability. Active smoking cigarettes. 30+ pack-year history Denies alcohol or illicits. On chronic narcotics for low back pain. Physical Exam: VITAL SIGNS: BP (!) 158/97 Pulse 83 Ht 152.4 cm (5') Wt 88.7 kg (195 lb 9.6 oz) LMP 08/16/2014 (Approximate) BMI 38.20 kg/m?? BMI: Body mass index is 38.2 kg/m??. Gen: Obese woman sitting in bed in NAD HEENT: NCAT, no scleral icterus, poor dentition GI: Soft without masses, TTP in the epigastric, LUQ, and LLQ. +bowel sounds, no hernias, obese. Skin: Warm, dry, no rashes, no induration Laboratory studies, imaging, and procedures: Assessment/Plan: Ms. Mclaughlin is a 58 y.o. patient with IBS-D and GERD who continues to experience chronic abdominal pain. She continues to have stool habit which has slowed on Viberzi, although she continues to experience abdominal pain. Her abdominal pain may be secondary to decreased bowel movement s. The transient relief with passing of flatus or defecation raises likelyhood of sigmoid spasm/colonic distension as cause of LLQ distress and we discussed that having more bowel movements may be helpful for her abdominal pain. In the interim, given her history of longstanding diabetes, will pursue gastric emptying study to evaluate for gastroparesis. In addition, will test for celiac disease atthis time given the intraepithelial lymphocytes and villous blunting seen on recent EGD. Other differential diagnosis for villous blunting include SIBO, Crohn's disease, and Whipple disease. Patient will also require follow-up for her diagnosis of Rudd's esophagus. We will plan some of these interventions and a follow-up in 3 months. Recommendations: - Gastric emptying NM study - Peppermint oil once per week - TTG IgA to evaluate for celiac disease Ms. Poppy Mclaughlin was seen and examined together with Dr. Mary Alice Scanlon who has documented our findings and recommendations in the note above, with which this note is linked and with which I concur. Seeabove note for full details. There are symptoms suggesting delayed gastric emptying. Last gastric nuclide scan was normal but years ago. Given her diabetes and current symptoms, a repeat emptying study would be reasonable. Thereare varying bowel symptoms and some question for celiac changes in small intestinal biopsies. Will test for TTG/IgA. Continuing current meds regimen but add some intermittent peppermint oil. Will f/uin 3 months. 15 of 25 minutes spent in direct fufm-dy-jynp counseling and the rest in taking history and performing physical exam. Osmany Keller MD Section of Gastroenterology and Hepatology documented in this encounter Plan of Treatment Not on file documented as of this encounter Results * NM Gastric Emptying [...] below. ? Electronically signed by: Anatoliy Flores [facility] ([phone]), at 01/01/2019 5:35 PM Narrative 01/01/2019 5:35 [...] this report, please contact the number below. Electronically signed by: Anatoliy Flores [facility]([phone]), at 01/01/2019 5:35 PM Osmany Overton MD IMG NM ORDERABLE S documented in this encounter Visit Diagnoses Diagnosis Type 2 diabetes mellitus with complication, with long-term current use of insulin Type 2 diabetes mellitus with complication, with long-term current use of insulin documented in this encounter Care Teams Mobile Disc Jockey Relationship Specialty Start Date End Date Mary Alice Cage APRN PCP - General 10/12/11 11/12/18 documented as of this encounter
--- OUTSIDE RECORDS SUMMARY | 2024-03-17 18:29 | XMS_ITS | Encounter Summary ---
[place] [address] Care Team Providers Care Administrative Assistant Office Manager Name Role Phone Mary Alice Cage APRN Primary Care Provider [phone] Reason for Visit * Reason Onset Date Comments Prior Authorization 10/14/2018 Encounter Details Date Type Department Care Team (Late st Contact Info) Description 10/14/2018 Telephone [place] [address] Amanda Sanchez CCMA Prior Authorization Social History [...] Telephone Encounter - Amanda Sanchez LNA - 10/14/2018 9:29 AM EST Medication Prior Authorization 4L Gastroenterology / [place] [address] Subscriber Insurance: [place] Phone: Fax: Physician: Osmany Keller Return Pharmacy: [facility] Fax: Medication Requested: Dexilant Strength: 60 mg Frequency: Once Daily Disp.: 90 Refills: 3 Currently taking: Diagnosis for this medication: GERD ICD-10 code: K21.9 Prior medications trialed in this patient: Esomeprazole, Omeprazole Medication: Outcome/Adverse Reactions: Treatment Failure Decision: Tracking number/Case number/Reference number: Effective date: Start: End: documented in this encounter Plan of Treatment Not on file documented as of this encounter Visit Diagnoses Not on filedocumented in this encounter Care Teams Administrative Assistant Office Manager Relationship Specialty Start Date End Date Mary Alice Cage APRN PCP - General 10/12/11 11/12/18 documented as of this encounter
--- OUTSIDE RECORDS SUMMARY | 2024-03-17 18:29 | XMS_ITS | Encounter Summary ---
[place] [address] Care Team Providers Care Synthetic Staple Extruder Name Role Phone [place] Alice dav[place] Rajendra ROY Primary Care Provider Encounter Details Date Type Department Care Team (Late st Contact Info) Description 01/17/2018 Telephone [place] [address] Stef Paul, RN Social History Tobacco Use [...] Telephone Encounter - Stef Paul RN - 01/17/2018 10:54 AM EDT Patient calls the office leaving a message on the RN voicemail stating that' she still has not heard back regarding the prior Authorization for her Dexilant. PA was sent on 01/09/18, our office apparently did not receive decision. Phone call was made and decision was faxed to out office. PA for Dexilant was denied because it is not a covered drug and patient needs to try Pantoprazolefirst. Reviewing the patient chart, she had tried and failed Pantoprazole, Omeprazole and Aciphex in 2011,but this information was not placed on the PA by the person that place the PA. This junior underwriter resubmitted PA with above information in hopes Dexilant will be approved on re review. Returned call to patient, was unable to reach patient by phone, left message on voicemail with above information. documented in this encounter Plan of Treatment Not on file documented as of this encounter Visit Diagnoses Not on filedocumented in this encounter Care Teams Synthetic Staple Extruder Relationship Specialty Start Date End Date Mary Alice Cage APRN PCP - General 10/12/11 11/12/18 documented as of this encounter
--- OUTSIDE RECORDS SUMMARY | 2024-03-17 18:29 | XMS_ITS | Encounter Summary ---
Author Organization [facility] [address] Care Team Providers Care Benefit Specialist Name Role Phone [place] Alice davis Rajendra ROY Primary Care Provider [phone] Encounter Details Date Type Department Care Team (Late st Contact Info) Description 08/20/2018 Telephone [place] [id number] Puja Leon Social History Tobacco Use Types [...] encounter Miscellaneous Notes * Telephone Encounter - Puja Leon - 08/20/2018 9:17 AM EST Caller: trinity from [facility] in [place] Call for: nurse Reason for call: controlled substance med was called in last month for more then 6 months worth andby law they cant fill more then 6 months. Please resend script for 6 months worth only Call back urgency: none Ok to leave detailed message?Preferred method of communication: documented in this encounter Plan of Treatment Not on file documented as of this encounter Visit Diagnoses Not on filedocumented in this encounter Care Teams Benefit Specialist Relationship Specialty Start Date End Date Mary Alice Cage APRN PCP - General 10/12/11 11/12/18 documented as of this encounter
--- OUTSIDE RECORDS SUMMARY | 2024-03-17 18:29 | XMS_ITS | Encounter Summary ---
[place] [address] Care Team Providers Care Charge Accounts Audit Clerk Name Role Phone [place] Alice davis Rajendra ROY Primary Care Provider [phone] Encounter Details Date Type Department Care Team (Late st Contact Info) Description 08/13/2018 Telephone [place] [phone] Jessica Tejeda Social History Tobacco Use Types Packs/Day Years [...] encounter Miscellaneous Notes * Telephone Encounter - Jessica Tejeda - 08/13/2018 11:46 AM EST Caller: pt Call for: RN/MA Reason for call: PA & refill for [facility] Call back urgency: routine Ok to leave detailed message? yes Preferred method of communication: phone documented in this encounter Plan of Treatment Not on file documented as of this encounter Visit Diagnoses Not on filedocumented in this encounter Care Teams Charge Accounts Audit Clerk Relationship Specialty Start Date End Date Mary Alice Cage APRN PCP - General 10/12/11 11/12/18 documented as of this encounter
--- OUTSIDE RECORDS SUMMARY | 2024-03-17 18:29 | XMS_ITS | Encounter Summary ---
[place] [address] Care Team Providers Care Imaging Technologist Name Role Phone Mary Alice Cage APRN Primary Care Provider [phone] Reason for Visit * Reason Onset Date Comments Medication Refill 08/13/2018 Encounter Details Date Type Department Care Team (Late st Contact Info) Description 08/13/2018 Refill [place] [address] Gardenia Bueno CMA GASTROENTEROLOGY DEPT Irritable bowel syndrome with diarrhea Social History [...] syndrome documented in this encounter Care Teams Imaging Technologist Relationship Specialty Start Date End Date Mary Alice Cage APRN PCP - General 10/12/11 11/12/18 documented as of this encounter
--- OUTSIDE RECORDS SUMMARY | 2024-03-17 18:29 | XMS_ITS | Encounter Summary ---
Author Organization [facility] [address] Care Team Providers Care Baler Operator Name Role Phone Mary Alice Cage APRN Primary Care Provider [phone] Reason for Visit * Reason Onset Date Comments Medication Refill 08/20/2018 Encounter Details Date Type Department Care Team (Late st Contact Info) Description 08/20/2018 [place] [address] Osmany Keller MD [facility] [place] [address] Chronic diarrhea Social History Tobacco Use Types Packs/Day [...] as of this encounter Visit Diagnoses Diagnosis Chronic diarrhea Diarrhea documented in this encounter Care Teams Baler Operator Relationship Specialty Start Date End Date Mary Alice Cage APRN PCP - General 10/12/11 11/12/18 documented as of this encounter
--- OUTSIDE RECORDS SUMMARY | 2024-03-17 18:29 | XMS_ITS | Encounter Summary ---
Author Organization [facility] [place] [address] Care Team Providers Care Historic Preservationist Name Role Phone Mary Alice Cage APRN Primary Care Provider Reason for Visit * Reason Onset Date Comments Medication Refill 11/03/2018 Encounter Details Date Type Department Care Team (Late st Contact Info) Description 11/03/2018 [place] [address] Osmany Keller MD [facility] [place] [address] Social History Tobacco Use Types Packs/Day Years [...] on filedocumented in this encounter Care Teams Historic Preservationist Relationship Specialty Start Date End Date Mary Alice Cage APRN PCP - General 10/12/11 11/12/18 documented as of this encounter
--- OUTSIDE RECORDS SUMMARY | 2024-03-17 18:29 | XMS_ITS | Encounter Summary ---
Author Organization Formerly [facility] [address] Care Team Providers Care Ropewalk Rope Maker Name Role Phone PittMary Alice davis Rajendra ROY Primary Care Provider [phone] Encounter Details Date Type Department Care Team (Late st Contact Info) Description 08/27/2018 10:00 AM EST Office Visit [place] [address] Osmany Keller MD [facility] [place] [address] Irritable bowel syndrome, unspecified type; Esophageal dysmotility Social History Tobacco Use Types Packs/Day Years [...] Sign Reading Time Taken Comments Blood Pressure 157/78 08/27/2018 10:05 AM EST Pulse 79 08/27/2018 10:05 AM EST Temperature - - Respiratory Rate - - Oxygen Saturation - - Inhaled Oxygen Concentration - - Weight 89.3 kg (196 lb 12.8 oz) 019 10:05 AM EST Height 152.4 cm (5') 08/27/2018 10:05 AM EST Body Mass Index 38.43 08/27/2018 10:05 AM EST documented in this encounter Progress Notes * Osmany Keller MD - 08/27/2018 10:00 AM EST HISTORY: Poppy Mclaughlin presents for consultation and further evaluation of left lower abdominal pain alongwith GERD Has had chronic left lower abdominal pain, and the severity waxes and wanes Eating makes it worse Passing gas sometimes helpful Defecation sometimes helpful No blood in stool Stool is occasional pellet like Having less frequent stools. Usually has a BM daily to every other day. On Viberzi the stools are formed, off it looser (was 5 loose stools a day) Abdominal symptoms felt today are like those she has even when the bowel habit was as before the Viberzi On Dexilant the reflux symptoms are mainly controlled No dysphagia Weight is stable When bloated, she does not want to eat Has postprandial increases in LLq cramping Post prandially her abdomen gets tight Has scybalous stools Had colonoscopy 2010 stated to be normal without polyps PMHx:PAST MEDICAL HISTORY 1. COPD; on home oxygen [...] A1c 09/12/16 was 16.2. 13. Fractured ribs - occurred after fall April 2017. ?? PAST SURGICAL HISTORY 1. Emergency hernia repair May 2011, [place]. 2. Cholecystectomy 11/24/12. 3. Cervical spine fusion surgery August 2013. 4. Lumbar discectomy 08/2014. 5. Left hand surgery April 2017, [facility] - tendon release. RECENT TESTING 1. Colonoscopy, [facility]: normal approximately [...] EGD 10/26/15: normal; Z-line at 41. 9. Ggnul-nzqmh-usma wireless pH capsule 10/26/15 to 10/28/15 off PPI therapy: DeMeester score of 19.2on day one and 13.0 on day two. 10. EGD with Botox injection of the esophagus for treatment of nutcracker esophagus 10/02/16, 11/05/17 Patient Active Problem List Diagnosis Code ??? [...] contraindicated Z28.09 PHYSICAL EXAM: Most Recent Vitals: 08/27/18 1005 BP: 157/78 Pulse: 79 NAD No adenopathy Chest clear Heart normal exam Abdomen tender without mass or focality in LLQ Rectal exam shows soft formed stool high in vault, no impaction No edema IMPRESSION: Stool habit has slowed as intended on Viberzi, and it is likely that there is increasedLLQ distress due to underlying IBS/hypersensitivity from this. There are no alarm symptoms of bleeding, unexpected weight loss, fevers, etc. Had last colonoscopy in 2010. The rectal exam was without impaction. We discussed a trial of sigmoid spasm reduction with IB KIRK, possibly with anticholinergics, and with fluid and fiber, and we can reduce the Viberzi to alternating bid or qd days. There may be a contingency for repeat colonoscopy if symptoms worsen or persist without Improvement. The transient relief with passing of flatus or defecation raises likelyhood of sigmoid spasm/colonic distension as cause of LLQ distress. We will plan some of these interventions and a follow-up in 6 to 8 weeks. The esophageal symptoms are improved after the last BOTOX treatment. 18 of 25 minutes spent in direct jqsc-ze-pauc counseling and the rest in taking history and performing exam. PLAN: Osmany Keller MD Section of Gastroenterology and Hepatology documented in this encounter Plan of Treatment Not on file documented as of this encounter Visit Diagnoses Diagnosis Irritable bowel syndrome, unspecified type Esophageal dysmotility Dyskinesia of esophagus documented in this encounter Care Teams Ropewalk Rope Maker Relationship Specialty Start Date End Date Mary Alice Cage APRN PCP - General 10/12/11 11/12/18 documented as of this encounter
--- OUTSIDE RECORDS SUMMARY | 2024-03-17 18:29 | XMS_ITS | Encounter Summary ---
[place] [address] Care Team Providers Care Director Search Marketing Strategies Name Role Phone Mary Alice Cage APRN Primary Care Provider [phone] Encounter Details Date Type Department Care Team (Late st Contact Info) Description 08/13/2018 Telephone [place] [address] Gardenia Bueno CMA GASTROENTEROLOGY DEPT Social History [...] Telephone Encounter - Gardenia Bueno CMA - 08/13/2018 12:07 PM EST Gastroenterology / Hepatology at [facility]?[address]?[place] [address]? Subscriber Insurance: [employer] ?? Phone: ?Fax: ? Physician:?Osmany Keller ? Return ?? Pharmacy:?[facility] ?? Phone:??[phone] Fax:??[phone] ?? Medication Requested: ??Viberzi ?? Strength:??100 mg?Frequency: ??BID ?? Disp.: ??60?Refills: 5 ?? Currently taking: yes ?? Diagnosis for this medication: IBS-D ?? ICD-10 code: K58.0 ? Prior medications trialed in this patient: ??xifaxan,lomotil, imodium ? Medication: Outcome/Adverse Reactions:??treatment failure ?? Decision:??approved? Tracking number/Case number/Reference number: [id number] ? Effective date: ?? 04/29/2018 to 10/17/2018 (previously approved) documented in this encounter Plan of Treatment Not on file documented as of this encounter Visit Diagnoses Not on filedocumented in this encounter Care Teams Director Search Marketing Strategies Relationship Specialty Start Date End Date Mary Alice Cage APRN PCP - General 10/12/11 11/12/18 documented as of this encounter
--- OUTSIDE RECORDS SUMMARY | 2024-03-17 18:29 | XMS_ITS | Encounter Summary ---
[place] [address] Care Team Providers Care Farm Crew Leader Name Role Phone Mary Alice Cage MANUELA Primary Care Provider [phone] Encounter Details Date Type Department Care Team (Late st Contact Info) Description 11/07/2017 Telephone [place] [address] Charmaine Martinez MD [facility] [place] [address] Social History Tobacco Use Types Packs/Day Years [...] encounter Miscellaneous Notes * Telephone Encounter - Charmaine Martinez - 11/07/2017 2:08 PM EDT Returned a call from pt. Was having vomiting post-procedure with botox injection. No answer, but asked her to call back if symptoms are persistent. documented in this encounter Plan of Treatment Not on file documented as of this encounter Visit Diagnoses Not on filedocumented in this encounter Care Teams Farm Crew Leader Relationship Specialty Start Date End Date Mary Alice Cage APRN PCP - General 10/12/11 11/12/18 documented as of this encounter
--- OUTSIDE RECORDS SUMMARY | 2024-03-17 18:29 | XMS_ITS | Encounter Summary ---
[place] [address] Care Team Providers Care Surgeon/President Name Role Phone NilesMary Alice Rajendra ROY Primary Care Provider [phone] Reason for Visit * Reason Onset Date Comments Post Procedure Call 11/07/2017 Patient call ed with concern s/p EGD with botox on 11/05. Pt reports vomiting and unable to keep solids or liquids down for 24 hours post procedure but is currently keeping softs down. Instructed to call back to the GI clinic if symtoms return. Encounter Details Date Type Department Care Team (Late st Contact Info) Description 11/07/2017 [place]phone [place] [id number] Osmany Keller MD [facility] [place] [address] Post Procedure Call (Patient called with concern s/p EGD with botox on 11/05. Pt reports vomiting and unable to keep solids or liquids down for 24 hours post procedure but is currently keeping softs down. Instructed to call back to the GI clinic if symtoms return.) Social History Tobacco Use Types Packs/Day Years [...] on filedocumented in this encounter Care Teams Surgeon/President Relationship Specialty Start Date End Date Mary Alice Cage APRN PCP - General 10/12/11 11/12/18 documented as of this encounter
--- OUTSIDE RECORDS SUMMARY | 2024-03-17 18:29 | XMS_ITS | Encounter Summary ---
Author Organization [facility] [place] [address] Care Team Providers Care Employment Counselor Name Role Phone Cb Florence Primary Care Provider [phone] Encounter Details Date Type Department Care Team (Late st Contact Info) Description 11/13/2018 7:55 PM EDT Ancillary Procedure [place] [address] Andriy Valdez Jr., MD [facility] [place] [address] Social History Tobacco Use Types Packs/Day Years [...] Diagnosis Comments FILM LIBRARY STORAGE ONLY CT CHEST Routine 11/13/2018 7:46 PM EDT documented in this encounter Results * Film Library- Storage Only CT Chest (11/13/2018 7:46 PM EDT) Narrative HELENE CHRISTINA - 11/13/2018 7:46 PM EDT This exam is auto-finalizing. It's purpose is for storage only. Andriy Valdez Jr., MD IMG FILM LIBRARY ORDERABLES CARRI [place], [place] documented in this encounter Visit Diagnoses Not on filedocumented in this encounter Care Teams Employment Counselor Relationship Specialty Start Date End Date Cb Florence PA [address] [place] [address] PCP - General Family Medicine 11/13/18 03/29/20 documented as of this encounter
--- OUTSIDE RECORDS SUMMARY | 2024-03-17 18:29 | XMS_ITS | Encounter Summary ---
[place] [address] Care Team Providers Care Shift Supervisor Melting Name Role Phone AmadorMary Alice davis Rajendra ROY Primary Care Provider [phone] Encounter Details Date Type Department Care Team (Late st Contact Info) Description 08/15/2018 Telephone [place] [phone] Puja Leon Social History Tobacco Use Types [...] * Telephone Encounter - Puja Leon - 08/15/2018 10:49 AM EST [facility]er: [facility] Call for:nurse Reason for call: wanted to let us know that the prescription for Viberzi can only be filled for 6 months worth due to it being a controlled med Call back urgency: no need for call back Ok to leave detailed message? Preferred method of communication: documented in this encounter Plan of Treatment Not on file documented as of this encounter Visit Diagnoses Not on filedocumented in this encounter Care Teams Shift Supervisor Melting Relationship Specialty Start Date End Date Mary Alice Cage APRN PCP - General 10/12/11 11/12/18 documented as of this encounter
--- OUTSIDE RECORDS SUMMARY | 2024-03-17 18:29 | XMS_ITS | Encounter Summary ---
Author Organization [facility] [place] [address] Care Team Providers Care Computer Support Technician Name Role Phone Cb Florence Primary Care Provider [phone] Reason for Visit * Auth/Cert Specialty Diagnoses / Procedures Referred By Chava alejo Referred To Contact Diagnoses COPD exacerbation ARDS Referral ID Status Reason Start Date Expiration Date Visits Re quested Visits Authorized [id number] 1 1 Encounter Details Date Type Department Care Team (Late st Contact Info) Description 11/13/2018 9:40 PM EDT - 11/25/2018 1:26 PM EDT Hospital Encounter [address] [id number] Vivian Valdez Jr., MD [facility] [place] [address] Justin Amezcua MD [facility] [place] [address] [place] [address] [place] [address] Hypertension, unspecified type; Screening for cardiovascular condition Discharge Disposition: Halfway Facility Social History Tobacco Use Types Packs/Day Years [...] Sign Reading Time Taken Comments Blood Pressure 133/84 11/25/2018 11:42 AM EDT Pulse 86 11/25/2018 11:42 AM EDT Temperature 36.8 ??C (98.2 ??F) 11/25/2018 11:42 AM E DT Respiratory Rate 18 11/25/2018 11:42 AM EDT Oxygen Saturation 95% 11/25/2018 11:42 AM EDT Inhaled Oxygen Concentration - - Weight 83.5 kg (184 lb) 11/25/2018 4:13 AM EDT Height 165.1 cm (5' 5) 11/15/2018 8:00 PM EDT Body Mass Index 30.62 11/15/2018 8:00 PM EDT documented in this encounter Discharge Summaries * Harsha Tejeda MD - 11/25/2018 8:52 AM EDT Images from the original note were not included. Inpatient Hospital Medicine - Discharge Summary Patient Name: Poppy Pino Patient Age: 58 y.o. Birthdate: 1960 Admit date: 11/13/2018 Discharge date and time: 11/25/2018 Attending Physician: Kim Dick MD Follow-up Recommendations for Providers: - Patient found to have low iron and iron saturation, supplementation deferred given acute infection, consider supplementation as an outpatient ?? - Patient was found to be hypothyroid in the setting of acute illness, please repeat thyroid studies as an outpatient - Patient on bupropion previously, not continued during her hospitalization for concerns during herICU stay, can continue on close monitoring of PCP - Patient BP meds held, lisinopril, HCTZ, lasix in setting of hypotension, continued to be of normal pressure while inpatient, these can be restarted one at a time as needing per her pressures - Patient on clotrimazole sachin for oral candidiasis, ensure she completes full course Discharge Diagnoses (Hospital Problems) and Secondary Diagnoses (Chronic Problems): Active Hospital Problems Diagnosis ??? Influenza due to identified novel H1N1 influenza virus with identified novel H1N1 influenza pneumonia ??? Viral sepsis ??? Acquired hypothyroidism ??? ANGE (acute kidney injury) ??? ARDS (adult respiratory distress syndrome) ??? Influenza vaccination contraindicated ??? COPD, moderate ??? Depression ??? Anxiety ??? Cigarette smoker ??? Hypertension ??? Dyspnea Resolved Hospital Problems No resolved problems to display. Operations/Major Procedures: None History of Presentation: Poppy Pino is a 58 year old female with past medical history of COPD on home O2 2-3L, IBS, diabetes mellitus, and hypertension presenting as transfer from [facility] for acute hypoxemic and hypercarbic respiratory failure. ?? Patient was diagnosed with influenza on October 30 and received course of Oseltamivir as well levofloxacin and prednisone for concurrent COPD exacerbation following evaluation in [facility]. ?? Patient was clinically improving per her , José Manuel, however still continued to have ongoing cough. ??Patient was last seen in usual state of health around 9 PM on 11/12 when she went to bed. ??Thefollowing morning, her found her to be somnolent and confused. ??Patient was taken to [facility] emergency department where was noted to be hypoxic with oxygen satu rations in the 70s. ?? CT head was negative for acute process and CTA of chest was concerning for bilateral interstitial opacities concerning for underlying infectious process. ??Patient was started on vancomycin as concern for post-influenza infection, zosyn, and doxycyline for atypical coverage. ?? After further discussion with patient and family, there was concern that she had ongoing extensive work of breathing while on BiPAP and patient elected to be intubated. ??Following intubation, she remained sedated on propofol and had a right subclavian central line placed. ??Additionally, she received 40 mg IV lasix for volume overload. ?? Patient was transferred to [facility] ICU for acute hypoxemic and hypercarbic respiratory failure with concerns for ARDS. ?? Laboratory studies at [facility]: ?? from 0800: WBC: 17.2, Hgb 11.1, Plt 278 Na 135, K 4.1, Cl 98, CO2 19.7, AG 17.3, BUN 27, Cr 1.92 Ca 9.2, Mg 1.3 Tot Pro 7.5, Alb 3.1, TBili 0.5, AST 25, ALT 28, ALP 99 Lipase 77, Ammonia <10 Troponin <0.02 NT-Pro BNP 1106 Urinalysis: pH 5.5, SG 1.01, negative nitrite, Leuk esterase, rare bacteria ?? Toxicology: Salicylate 3.7 Acetaminophen <2 Positive for tricyclics Negative for methadone, barbiturates, amphetamine, benzodiazepine, cocaine, THC ?? ABG 7.34/68/94/19 on FiO2 60 Hospital Course: #ARDS #COPD exacerbation #Influenza H1 -2008 The patient was started on the ARDS ventilator protocol. She was sedated with fentanyl and versed and paralyzed with Nimbex for ventilator synchrony. She was not proned as her ABGs showed good oxygenation and it was thought that the risk of proning outweighed the potential benefits. She was startedon Vancomycin and Zosyn for empiric coverage, particularly given contact with the healthcare system. Per ID since the patient had completed a course of TamiFlu several weeks ago further influenza treatment was not necessary. Steroids were not given as the patient had ARDS. Sputum cultures grew upper respiratory caryn and Vancomycin was discontinued. She continued having intermittent fevers, but in fectious work-up continued to be unrevealing. She completed a 5 day course of Zosyn. Her fevers resolved. She was extubated on 11/19/18 to NE and her oxygen saturations remained stable, back to her baseline prior to discharge. She continued to have coarse lungs sounds which improved over time to herD/C. Following ICU stay, she was incredibly weak. This did improved gradually with in-patient PT and OT, with recommendations for rehab placement. ?? #Blood Pressure The patient's home lisinopril was initially held as she was hypotensive and requiring levophed. Herlevophed was weaned. On hospital day 6 she was hypertensive to 150-170s and her home lisinopril wasre-started. Had an increase in her creatinine following lisinopril administration, held and gave fluid with resolution, discharged without lisinopril or HCTZ on board as her pressures were low stable. ?? #Volume overload The patient was noted to have bilateral lower extremity edema. She was diuresed with IV Lasix pushes as tolerated by her renal function. She continued to have adequate urine production without issuesbreathing following her stay in the ICU. Her pena was removed without issues and without signs of obstruction. ?? #ANGE On presentation the patient had a creatinine of 1.3 up from her baseline of about 0.7. This what thought to be pre-renal in nature. Lisinopril was restarted and patient was discharged from the ICU, patient had an abrupt increase over the next day, which improved with cessation of her lisinopril andIV fluids. #anemia The patient was noted to be anemic. Work-up revealed a low B12, folate, iron, and iron saturation. She was started on folate and B12 supplementation. Iron supplementation was deferred given her acuteinfection. She was discharged with stable hemoglobin without oral supplementation and out patient instruction to follow her CBC. #Oral Candidiasis Patient found to have oral thrush following ICU stay. Per patient this is typical for her followingantibiotics. She was started; on clortrimazole sachin to be continued outpatient. Important Studies and Lab Data: Labs: Recent Labs 11/25/18 0751 11/24/18 1144 11/23/18 0805 WBC 10.0* 9.5 11.1* HGB 10.5* 11.1* 10.6* PLATELET 347 328 308 Recent Labs 11/25/18 0533 11/24/18 1144 11/23/18 0805 NA 138 138 140 K 4.4 4.4 4.1 CL 104 102 102 CO2 19* 21* 23 BUN 21* 26* 31* CREATININE 0.91 0.97 1.15 No results for input(s): AST, ALT, ALKPHOS, BILITOT, BILIDIR in the last 168 hours. Recent Labs 11/25/18 0533 11/24/18 1144 11/23/18 0805 11/18/18 2140 CALCIUM 9.4 9.8 9.5 < > 9.3 MAGNESIUM -- -- -- -- 0.75 < > = values in this interval not displayed. No results for input(s): INR, PT in the last 168 hours. Radiology/Studies: None Pending Studies and Lab Data: No current labs Discharge Conditions/Prognosis: Upon discharge the pt is hemodynamically stable, fully ambulatory requiring supplemental oxygen, holding down food/drink, afebrile and pain free controlled with stable oral regimen. Discharge to: Rehab Discharge Medications: Your Medications New Medications Dose Details clotrimazole 10 mg Troc Commonly known as: MYCELEX Take 1 tablet by mouth 5 times daily for 11 days. 10 mg Quantity: 55 tablet Refills: 0 Continued medications with new dosing Dose Details diphenoxylate-atropine 2.5-0.025 mg Tab Commonly known as: LOMOTIL Take 1 tablet by mouth 4 times daily. DO NOT restarted this unless you are having diarrhea. What changed: ?? when to take this ?? reasons to take this ?? additional instructions 1 tablet Quantity: 120 tablet Refills: 7 fluticasone 50 mcg/actuation Spsn Commonly known as: FLONASE USE ONE SPRAY IN EACH NOSTRIL TWICE DAILY What changed: See the new instructions. Quantity: 1 each Refills: 3 ipratropium 42 mcg (0.06 %) Crayne Commonly known as: ATROVENT USE TWO SPRAYS BY NASAL ROUTE 4 TIMES DAILY What changed: See the new instructions. Quantity: 15 mL Refills: 2 Continued medications, unchanged Dose Details acetaminophen 500 mg Tab Commonly known as: TYLENOL Take 1,000 mg by mouth every 6 hours as needed. 1000 mg Refills: 0 * albuterol 90 mcg/actuation Hfaa Inhale 2 puffs into the lungs every 4 hours as needed. Use with spacer 2 puff Refills: 0 * albuterol 2.5 mg /3 mL (0.083 %) Nebu Commonly known as: PROVENTIL Take 2.5 mg by nebulization every 4 hours as needed for Wheezing. 2.5 mg Refills: 0 baclofen 10 mg Tab Commonly known as: LIORESAL Take by mouth 3 times daily. Refills: 0 benzonatate 100 mg Cap Commonly known as: TESSALON Take 100 mg by mouth 3 times daily as needed for Cough. 100 mg Refills: 0 chlorpheniramine 4 mg Tab Commonly known as: CHLOR-TRIMETON Take 4 mg by mouth every 6 hours as needed for Allergies. 4 mg Refills: 0 cholecalciferol (Vitamin D3) 400 unit Tab Take 400 Units by mouth daily. 400 Units Refills: 0 citalopram 40 mg Tab Commonly known as: celeXA Take 1 tablet by mouth daily. 40 mg Quantity: 90 tablet Refills: 3 eluxadoline 100 mg Tab Commonly known as: VIBERZI Take 100 mg by mouth 2 times daily. 100 mg Quantity: 180 tablet Refills: 1 gabapentin 300 mg Cap Commonly known as: NEURONTIN Take 1 capsule by mouth 3 times daily. 300 mg Quantity: 90 capsule Refills: 12 guaiFENesin 600 mg Ta12 Take 1 tablet by mouth 2 times daily. 600 mg Quantity: 60 tablet Refills: 11 inhalational spacing device Spcr 2 puffs by [facility].(Non-Drug; Combo Route) route daily. 2 puff Refills: 0 loratadine 10 mg Tab Commonly known as: CLARITIN Take 10 mg by mouth daily. 10 mg Refills: 0 [facility] L by [facility].(Non-Drug; Combo Route) route nightly. 3 L Refills: 0 [facility] Face mask for nocturnal O2 Quantity: 1 each Refills: PRN montelukast 10 mg Tab Commonly known as: SINGULAIR Take 10 mg by mouth nightly. 10 mg Refills: 0 MULTIVITAMIN ORAL Take 2 tablets by mouth daily. 2 tablet Refills: 0 prochlorperazine 10 mg Tab Commonly known as: COMPAZINE Take 10 mg by mouth every 8 hours as needed for Nausea. 10 mg Refills: 0 promethazine 25 mg Tab Commonly known as: PHENERGAN Take 25 mg by mouth every 6 hours as needed. 25 mg Refills: 0 rosuvastatin 10 mg Tab Commonly known as: CRESTOR Take 10 mg by mouth nightly. 10 mg Refills: 0 SYMBICORT 160-4.5 mcg/actuation Hfaa Inhale 2 puffs into the lungs 2 times daily. Generic drug: budesonide-formoterol 2 puff Refills: 0 VITAMIN C ORAL Take 2 tablets by mouth daily. 2 tablet Refills: 0 * This list has 2 medication(s) that are the same as other medications prescribed for you. Read thedirections carefully, and ask your doctor or other care provider to review them with you. STOPPED Medications atenolol 25 mg Tab Commonly known as: TENORMIN dexlansoprazole 60 mg Cpdm Commonly known as: DEXILANT fluconazole 100 mg Tab Commonly known as: DIFLUCAN furosemide 20 mg Tab Commonly known as: LASIX hydroCHLOROthiazide 25 mg Tab Commonly known as: HYDRODIURIL levoFLOXacin 500 mg Tab Commonly known as: LEVAQUIN lisinopril 5 mg Tab Commonly known as: PRINIVIL;ZESTRIL meloxicam 7.5 mg Tab Commonly known as: MOBIC nystatin 100,000 unit/mL Susp Commonly known as: Mycostatin nystatin 500,000 unit Tab Commonly known as: MYCOSTATIN oxyCODONE 10 mg Tab Commonly known as: ROXICODONE rOPINIRole 2 mg Tab Commonly known as: REQUIP simvastatin 20 mg Tab Commonly known as: ZOCOR WELLBUTRIN ORAL Updated Allergies/ADRs: Allergies Allergen Reactions ??? Pneumococcal Vaccine Other (See Comments) Cold/Flu like symptoms ??? Albuterol Other (See Comments) Liquid--Per patient, she gets hyperactivity. Instructions Given to Patient at Discharge: Patient Instructions Nursing Patient Care Recommendations: Bowel function (most recent BM, potential for constipation and plan to prevent it) - Day of discharge, normal Bladder function (Pena, ISC, bladder scan, straight cath, etc.) - No pena, urinating without issues Diabetes management(?started on insulin in the hospital, issues) - DM2 previously diet controlled, getting 1-2 units of SSI Mental status assessment (Dementia? Delirium? stable, worsening, improving?) - None Diet/Nutrition (supplemental nutrition types, tube feed type and rates, limitations in diet such asnectars, soft-mechanical, ability to feed ,speech pathology recs) - Regular diet Physical Therapy Recommendations Summary: ?? 11/24/18 1035 Rehab Evaluation Document Type therapy note (daily note) Total Evaluation Minutes, Physical Therapy 25 Patient Effort good Symptoms Noted During/After Treatment fatigue;shortness of breath (pt rates dyspnea as 5/10 at rest, 7/10 walking) General Information Patient Profile Review yes Patient/Family/Caregiver Comments/Observations I am feeling a lot better, I still think a little rehab would be the best thing before I go home Pertinent History of Current Problem 58 y.o. female w/ PMH of COPD on home O2 2- 3L, IBS, GERD, diabetes mellitus, and HTN who presented as a transfer from [facility] for acute hypoxemic and hypercarbic respiratory failure and ARDS in the setting of recent influenza infection. Treatment Number PT 2 Vital Signs Heart Rate 91 (after walking HR in 100s) SpO2 95 % (95% at rest, dips to 88% after ambulating) Pain Scale/Rating Pain Level 5 Transfer Assessment/Treatment Bed-Chair [place] (Transfers) supervision required Anv-Njwvr-Jog Assistive Device (Transfers) rolling walker [place] (Sit-Stand Transfers) contact guard assist [place] (Stand-Sit Transfers) contact guard assist Tqx-Jwtlh-Mac Assistive Device (Transfers) rolling walker Comment (Transfers) several reps sit<>stand, with cues and contact guard assist Gait Assessment/Treatment [place] (Gait) contact guard assist Assistive Device (Gait) rolling walker Distance in Feet (Gait) 75 Comment (Gait) slow moving, steady with no LOB Am-[facility] Basic Mobility 5 Click AM-[facility] Mobility 5 Click Completed? Yes Turning from your back to your side while in a flat bed w/o using handrails? 4 - None Standing up from a chair using your arms (e.g. wheelchair, or bedside commode)? 3- A Little Moving from lying on your back to sitting on the side of a flat bed w/o using bedrails? 4 - None Moving to and from a bed to a chair (inclucing a wheelchair) 3- A Little To walk in [facility]? 3 - A Little -[facility] Basic Mobility Raw Score 5 item 17 Basic Mobility Standardized T-Scale Score 5 42.42 Basic Mobility 5 CMS 0-100% 35.81 AM-[facility] Basic Mobility CMS Modifier CJ Balance Skills Training Sitting Balance: Static good balance Sitting Balance: Dynamic good balance Lqj-hc-Btvbi Balance good balance Standing Balance: Static good balance Standing Balance: Dynamic fair balance Therapeutic Exercise Comment (Therapeutic Exercise) Provided IS and instructed in use. maribel to achieve 1000 mL after several trials Bed Mobility Goal Bed Mobility Goal, Date Established 11/21/18 Bed Mobility Goal, Time to Achieve 30 days Bed Mobility Goal, Activity Type supine to sit/sit to supine Bed Mobility Goal, [place] Level conditional independence Bed Mobility Goal, Date Goal Reviewed 11/24/18 Bed Mobility Goal, Outcome Achieved goal ongoing Gait Training Goal Gait Training Goal, Date Established 11/21/18 Gait Training Goal, Time to Achieve 30 days Gait Training Goal, [place] Level supervision required Gait Training Goal, Assist Device walker, rolling Gait Training Goal, Distance to Achieve >100 Gait Training Goal, Additional Goal Pt to ascend/descend 4 steps with use of railing and LRAD simulating home set up in order to enter and exit her home Gait Training Goal, Date Goal Reviewed 11/24/18 Gait Training Goal, Outcome goal ongoing Transfer Training Goal Transfer Training Goal, Date Established 11/21/18 Transfer Training Goal, Time to Achieve 30 days Transfer Training Goal, Activity Type lix-fm-jcphw/revhp-rn-xmf;ghd-wd-hravt/ydjjm-ni-zyo Transfer Train Goal, [place] Level supervision required Transfer Training Goal, Assist Device walker, rolling Transfer Train Goal, Date Goal Reviewed 11/24/18 Transfer Training Goal, Outcome goal ongoing Clinical Impression Therapy Frequency 2-4 times/wk Anticipated Discharge Disposition snf facility ?? Occupational Therapy Recommendations Summary: Occupational Therapy Evaluation ?? Pertinent History of Current Problem: Poppy Pino is a 58 y.o. female w/ PMH of COPD on home O22-3L, IBS, GERD, diabetes mellitus, and HTN who presented as a transfer from [facility] for acute hypoxemic and hypercarbic respiratory failure and ARDS in the setting of recent influenza infection. ?? Precautions/Restrictions: fall, oxygen therapy device and L/min Precautions Comments: Up with assist, droplet precautions ?? Assessment: Pt has been seen for occupational therapy evaluation, please refer to associated flowsheet data listed below for details. Poppy Pino presents with the following performance skill deficits and client factors: generalized weakness, decreased ROM, impaired coordination, impaired balance and postural control, and decreased activity tolerance. These performance deficits have led to activity limitations and participation restrictions in the following areas of occupation: dressing, bathing, grooming, toileting, self-feeding, mobility, transfers, home management, roles/routines, leisure, driving, community mobility, communication, and social participation. Pt presented as lethargicand cooperative with increased alertness over time when sitting upright. She was motivated to participate despite fatigue and generalized weakness. Pt required min assist of 2 for supine to sit transfer and fatigued quickly with simple task of washing her face while seated EOB requiring mod assist to complete the task. Pt stood with moderate assist using a gait belt for toilet hygiene. She took a seated rest break after approximately 2 minutes of standing and then transferred bed to chair with min assist of 2. Pt was set up for self feeding and was able to lift UEs with noted difficulty managing sustained position against gravity and fine motor skills required for self feeding. Pt's husbandarrived during the evaluation and was agreeable to assist Pt with self feeding as needed. Anticipate Pt will require a short inpatient rehab stay when medically ready for discharge for return to prior level of functioning. Pt would benefit from further inpatient OT interventions to address performance deficits and maximize participation and independence with occupations of daily living. ?? Staff Recommendations: Encourage OOB activity (min assist of 2 stand pivot) and participation in all self care tasks. ?? Anticipated Discharge Disposition: inpatient rehabilitation facility General Instructions Speech Pathology Recommendations as of 11/24/2018 RECOMMENDATIONS: ?? Regular texture diet and thin liquids. ?? Upright to feed. ?? Medications whole with water. BENI CUADRA MS, CCC-STRIPING MACHINE OPERATOR Future Appointments and Orders Future Appointments and Orders Future Appointments Provider Department Dept Phone 12/17/2018 10:00 AM Osmany Keller MD Gastroenterology at [place] Arrive at: [employer] [phone] Provider Contact Information: Harsha Te[place]eda [place] [address] Discharge References/Attachments: Discharge References/Attachments None For questions regarding this document or issues relating to this hospitalization on the Medical Service, please contact your inpatient physician through the [facility] Gas Meter Checker . Issues afterhours and on weekends will be handled by the Hospitalist staff on-call. Signed: Harsha Tejeda MD 11/25/2018 documented in this encounter Discharge Instructions * Discharge Instructions* Vijay Powers STRIPING MACHINE OPERATOR - 11/24/2018 11:54 AM EDT Speech Pathology Recommendations as of 11/24/2018 RECOMMENDATIONS: ?? Regular texture diet and thin liquids. ?? Upright to feed. ?? Medications whole with water. VIJAY B DORKO, STRIPING MACHINE OPERATOR MS, CCC-STRIPING MACHINE OPERATOR * Patient Instructions* Harhsa Tejeda MD - 11/25/2018 8:47 AM EDT Nursing Patient Care Recommendations: Bowel function (most recent BM, potential for constipation and plan to prevent it) - Day of discharge, normal Bladder function (Pena, ISC, bladder scan, straight cath, etc.) - No pena, urinating without issues Diabetes management(?started on insulin in the hospital, issues) - DM2 previously diet controlled, getting 1-2 units of SSI Mental status assessment (Dementia? Delirium? stable, worsening, improving?) - None Diet/Nutrition (supplemental nutrition types, tube feed type and rates, limitations in diet such asnectars, soft-mechanical, ability to feed ,speech pathology recs) - Regular diet Physical Therapy Recommendations Summary: ?? 11/24/18 1035 Rehab Evaluation Document Type therapy note (daily note) Total Evaluation Minutes, Physical Therapy 25 Patient Effort good Symptoms Noted During/After Treatment fatigue;shortness of breath (pt rates dyspnea as 5/10 at rest, 7/10 walking) General Information Patient Profile Review yes Patient/Family/Caregiver Comments/Observations I am feeling a lot better, I still think a little rehab would be the best thing before I go home Pertinent History of Current Problem 58 y.o. female w/ PMH of COPD on home O2 2- 3L, IBS, GERD, diabetes mellitus, and HTN who presented as a transfer from [facility] for acute hypoxemic and hypercarbic respiratory failure and ARDS in the setting of recent influenza infection. Treatment Number PT 2 Vital Signs Heart Rate 91 (after walking HR in 100s) SpO2 95 % (95% at rest, dips to 88% after ambulating) Pain Scale/Rating Pain Level 5 Transfer Assessment/Treatment Bed-Chair [place] (Transfers) supervision required Wle-Uadyj-Ifp Assistive Device (Transfers) rolling walker [place] (Sit-Stand Transfers) contact guard assist [place] (Stand-Sit Transfers) contact guard assist Xee-Gzseq-Yem Assistive Device (Transfers) rolling walker Comment (Transfers) several reps sit<>stand, with cues and contact guard assist Gait Assessment/Treatment [place] (Gait) contact guard assist Assistive Device (Gait) rolling walker Distance in Feet (Gait) 75 Comment (Gait) slow moving, steady with no LOB Am-[facility] Basic Mobility 5 Click AM-[facility] Mobility 5 Click Completed? Yes Turning from your back to your side while in a flat bed w/o using handrails? 4 - None Standing up from a chair using your arms (e.g. wheelchair, or bedside commode)? 3- A Little Moving from lying on your back to sitting on the side of a flat bed w/o using bedrails? 4 - None Moving to and from a bed to a chair (inclucing a wheelchair) 3- A Little To walk in [facility]? 3 - A Little AM-[facility] Basic Mobility Raw Score 5 item 17 Basic Mobility Standardized T-Scale Score 5 42.42 Basic Mobility 5 CMS 0-100% 35.81 AM-[facility] Basic Mobility CMS Modifier CJ Balance Skills Training Sitting Balance: Static good balance Sitting Balance: Dynamic good balance Hyp-eq-Wqqsc Balance good balance Standing Balance: Static good balance Standing Balance: Dynamic fair balance Therapeutic Exercise Comment (Therapeutic Exercise) Provided IS and instructed in use. maribel to achieve 1000 mL after several trials Bed Mobility Goal Bed Mobility Goal, Date Established 11/21/18 Bed Mobility Goal, Time to Achieve 30 days Bed Mobility Goal, Activity Type supine to sit/sit to supine Bed Mobility Goal, [place] Level conditional independence Bed Mobility Goal, Date Goal Reviewed 11/24/18 Bed Mobility Goal, Outcome Achieved goal ongoing Gait Training Goal Gait Training Goal, Date Established 11/21/18 Gait Training Goal, Time to Achieve 30 days Gait Training Goal, [place] Level supervision required Gait Training Goal, Assist Device walker, rolling Gait Training Goal, Distance to Achieve >100 Gait Training Goal, Additional Goal Pt to ascend/descend 4 steps with use of railing and LRAD simulating home set up in order to enter and exit her home Gait Training Goal, Date Goal Reviewed 11/24/18 Gait Training Goal, Outcome goal ongoing Transfer Training Goal Transfer Training Goal, Date Established 11/21/18 Transfer Training Goal, Time to Achieve 30 days Transfer Training Goal, Activity Type swx-gf-jecjl/tmbtz-tq-was;wgm-cm-cvncq/tbqcc-ss-mmh Transfer Train Goal, [place] Level supervision required Transfer Training Goal, Assist Device walker, rolling Transfer Train Goal, Date Goal Reviewed 11/24/18 Transfer Training Goal, Outcome goal ongoing Clinical Impression Therapy Frequency 2-4 times/wk Anticipated Discharge Disposition snf facility ?? Occupational Therapy Recommendations Summary: Occupational Therapy Evaluation ?? Pertinent History of Current Problem: Poppy Pino is a 58 y.o. female w/ PMH of COPD on home O22-3L, IBS, GERD, diabetes mellitus, and HTN who presented as a transfer from [facility] for acute hypoxemic and hypercarbic respiratory failure and ARDS in the setting of recent influenza infection. ?? Precautions/Restrictions: fall, oxygen therapy device and L/min Precautions Comments: Up with assist, droplet precautions ?? Assessment: Pt has been seen for occupational therapy evaluation, please refer to associated flowsheet data listed below for details. Poppy Pino presents with the following performance skill deficits and client factors: generalized weakness, decreased ROM, impaired coordination, impaired balance and postural control, and decreased activity tolerance. These performance deficits have led to activity limitations and participation restrictions in the following areas of occupation: dressing, bathing, grooming, toileting, self-feeding, mobility, transfers, home management, roles/routines, leisure, driving, community mobility, communication, and social participation. Pt presented as lethargicand cooperative with increased alertness over time when sitting upright. She was motivated to participate despite fatigue and generalized weakness. Pt required min assist of 2 for supine to sit transfer and fatigued quickly with simple task of washing her face while seated EOB requiring mod assist to complete the task. Pt stood with moderate assist using a gait belt for toilet hygiene. She took a seated rest break after approximately 2 minutes of standing and then transferred bed to chair with min assist of 2. Pt was set up for self feeding and was able to lift UEs with noted difficulty managing sustained position against gravity and fine motor skills required for self feeding. Pt's husbandarrived during the evaluation and was agreeable to assist Pt with self feeding as needed. Anticipate Pt will require a short inpatient rehab stay when medically ready for discharge for return to prior level of functioning. Pt would benefit from further inpatient OT interventions to address performance deficits and maximize participation and independence with occupations of daily living. ?? Staff Recommendations: Encourage OOB activity (min assist of 2 stand pivot) and participation in all self care tasks. ?? Anticipated Discharge Disposition: inpatient rehabilitation facility documented in this encounter Medications at Time [...] CLASSIC OXYGEN CONCENTRATOR MISC) 3 L by [facility].(Non-Drug; Combo Route) route [...] 2 puffs [facility]Non-Drug; Combo Route) route daily. promethazine (PHENERGAN) 25 [...] lung Take 10 mg by mouth daily. clotrimazole (MYCELEX) 10 mg Sachin Take 1 tablet by mouth 5 times daily for 11 days. 55 tablet 11/25/2018 12/06/2018 gabapentin (NEURONTIN) 300 mg Capsule Take 1 [...] 08/19/2012 07/14/2021 documented as of this encounter Progress Notes * Lizbet Diaz RN - 11/25/2018 1:07 PM EDT Patient Name: Poppy Pino Patient Age: 58 y.o. Birthdate: 1960 Admit date: 11/13/2018 Attending Physician: Kim Dick MD Pt discharged to Rehab at [facility]. D/C instructions reviewed. IVs d/c'd. Report given to RN at [facility]. Pt and spouse verbalized understanding. Transported via wheelchair w and all belongings. NAD * Dianne Toure - 11/25/2018 12:44 PM EDT Office of Care Management/Seed Yeast Operator Patient Name: Poppy Pino : 1960 Patient has been offered a snf bed at [facility] . is transporting pt. Please call Nursing Report to [phone], ask for anti tank missileman. Info to accompany patient: Narcotic Prescriptions Copies of Medication Administration Records and IV sheets for past 10 days. Plan: Seed Yeast Operator will be available to the patient and Administrative Liaison-RN and/or Social Workerfor further assistance. Patient [facility] be discharged to: [facility] [address] [place] [id number] [address] * Nery Marin RN - 11/25/2018 11:29 AM EDT Office of Care Management (OCM)-Administrative Liaison discharge planning Administrative LiaisonNery Service:[id number] Reviewed medical record and in rounds with,Charge/Resource RN, TRIMMING ASSEMBLER, and CM, PT and Hospitalist. Poppy Pino is ready for discharge to [facility]. Met with the patient who is comfortable with the plan. DPOA/POA/surrogate notified by this administrative underwriter of the plan. Transportation provided by via private car. notified of plan. Charge Nurse updated. Resource Specialists updated. Nery Marin Administrative Liaison, Care Management [phone] * Kim Dick MD - 11/25/2018 9:09 AM EDT Hospital Medicine - Attending Day of Discharge Documentation Discharge diagnosis Active Hospital Problems Diagnosis ??? Influenza due to identified novel H1N1 influenza virus with identified novel H1N1 influenza pneumonia ??? Viral sepsis ??? Acquired hypothyroidism ??? ANGE (acute kidney injury) ??? ARDS (adult respiratory distress syndrome) ??? Influenza vaccination contraindicated ??? COPD, moderate ??? Depression ??? Anxiety ??? Cigarette smoker ??? Hypertension ??? Dyspnea Resolved Hospital Problems No resolved problems to display. Secondary Issues Active Non-Hospital Problems Diagnosis ??? Mixed restrictive and obstructive lung disease ??? Chronic low back pain ??? Syncope ??? PAH (pulmonary artery hypertension) ??? Thrush ??? Edema ??? Trochanteric bursitis ??? Radiculopathy of lumbar region ??? Urinary retention with incomplete bladder emptying- improved ??? Allergic rhinitis ??? Esophageal reflux ??? Chronic diarrhea ??? 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 Herniated nucleus pulposus, C6-7 Right, S/P C5-7 ACDF 09/08/13 ??? Biliary colic ??? Multiple nodules of lung ??? Abdominal distention I have personally seen and examined the patient and they are ready for discharge. I spent >30 minutes (Day of Discharge Code 13977) involved in the final examination of the patient, discussion of the hospital stay, instructions for continuing care to all relevant caregivers, and preparation of discharge records, prescriptions and referral forms. Plans ? Discharge to rehab ? Please see the Discharge Summary for complete details of any medication changes and additional plans. * Nery Marin RN - 11/24/2018 2:21 PM EDT Office of Care Management/Discharge Planning Note Care reviewed with primary medical team (Service: [id number]) and discussed in interdisciplinary rounds. Medical record reviewed. Patient is medically ready to go today to SNf. Met with patient and at bedside and receivedchoices. [facility] will take tomorrow and will be transported by via private car. Care Management will continue to monitor progress, follow for continuity of care, and assist with discharge planning. Administrative Liaison: Nery Marin Pager [phone] * Nery Marin RN - 11/24/2018 12:53 PM EDT Based on discussions with the multi-disciplinary healthcare team, the patient would benefit from snf level of care at discharge. ?? I have met with the patient/litigation claim representative to discuss discharge planning needs. I have provided the [facility], Office of Care Management letter from the Rn Picu pertaining to rehab referrals. I have also provided a letter describing our affiliations within the [facility] and educated them about their right to choose where referrals are placed. ?? I reviewed the different levels of rehab including SNF, swing, acute and LTAC with the patient/litigation claim representative. ?? The patient/litigation claim representative has been provided a list of facilities within their preferred geographic area. ?? I have requested that the patient/litigation claim representative provide at least three choices for referral. ?? The patient/litigation claim representative have requested referrals to: ?? 1. [facility] ?? 2. [facility] ?? 3. [facility] ?? Expected date of discharge:now Note routed to Seed Yeast Operator who will communicate referrals to facilities and provide any required information. * Harsha Tejeda MD - 11/24/2018 7:02 AM EDT Images from the original note were not included. Hospital Medicine Progress Note Patient Name: Poppy Pino Date of Admission: 11/13/2018 ( Hospital Day 11 days ) Service: Medicine Purple ID:Poppy Pino??is a 58 y.o.??female??w/ PMH of COPD on home O2 2-3L, IBS, GERD, diabetes mellitus, and HTN who presented as a transfer from [facility] for acute hypoxemic and hypercarbic respiratory failure and ARDS in the setting of recent influenza infection. Active Problems: Active Hospital Problems Diagnosis ??? Influenza due to identified novel H1N1 influenza virus with identified novel H1N1 influenza pneumonia ??? Viral sepsis ??? Acquired hypothyroidism ??? ANGE (acute kidney injury) ??? ARDS (adult respiratory distress syndrome) ??? Influenza vaccination contraindicated ??? COPD, moderate ??? Depression ??? Anxiety ??? Cigarette smoker ??? Hypertension ??? Dyspnea Resolved Hospital Problems No resolved problems to display. 24 hr events/Subjective: - Improvement in ANGE, removal of pena without issues - NAEO - Patient feeling good this AM without complaints, very concerned - Afebrile, vitals stable, sating 95% 2L NC - Pending AM lab collection Physical Exam: Last value Range last 24 hrs Temperature Temp: 36.5 ??C (97.7 ??F) Temp: [36.5 ??C (97.7 ??F)-37.4 ??C (99.3 ??F)] Heart Rate Heart Rate: 81 Heart Rate: [76-89] Blood Pressure BP: 126/73 BP: (93-126)/(56-86) Respiratory Rate Resp: 18 Resp: [18-20] SpO2 SpO2: 95 % SpO2: [90 %-95 %] Intake/Output Summary (Last 24 hours) at 11/24/2018 0702 Last data filed at 11/24/2018 0601 Gross per 24 hour Intake 740 ml Output 1450 ml Net -710 ml cumulative I/O's since admission: Patient Vitals for the past 168 hrs: Weight 11/24/18 0320 82.6 kg (182 lb) 11/23/18 0329 81.7 kg (180 lb 1.6 oz) 11/21/18 0353 80 kg (176 lb 6.4 oz) 11/20/18 0600 80.4 kg (177 lb 4 oz) 11/19/18 0024 81.8 kg (180 lb 5.4 oz) 11/18/18 0000 85.3 kg (188 lb 0.8 oz) ?? Gen: NAD in bed HEENT: moist mucous membranes CV: RRR, normal S1 and S2, no murmurs, rubs, or gallops Resp: Diffuse rhonchi throughout left and right lungs Abd: +BS, soft, nontender, nondistended Ext: warm, well-perfused, 2+ PT/DP pulses Skin: No rashes, erythema, petechiae Neuro: Alert and oriented x 3, follows commands, globally weak upper and lower extremities without focal neuro deficits Labs Recent Labs 11/23/18 0805 11/22/18 0715 11/21/18 0617 WBC 11.1* 14.3* 11.3* HGB 10.6* 10.9* 11.3* HCT 33.5* 34.8* 37.2 PLATELET 308 260 271 Recent Labs 11/23/18 0805 11/22/18 0715 11/21/18 0617 NA 140 137 140 K 4.1 3.8 3.9 CL 102 98 102 CO2 23 23 22 BUN 31* 42* 30* CREATININE 1.15 1.84* 0.93 No results for input(s): AST, ALT, ALKPHOS, BILITOT, BILIDIR in the last 168 hours. Recent Labs 11/23/18 0805 11/22/18 0715 11/21/18 0617 11/18/18 2140 11/18/18 0030 CALCIUM 9.5 9.5 9.5 < > 9.3 8.6 MAGNESIUM -- -- -- -- 0.75 0.79 PHOS -- -- -- -- -- 3.8 < > = values in this interval not displayed. No results for input(s): INR, PT, PTT in the last 168 hours. Recent Labs 11/20/18 0135 11/18/18 0030 11/17/18 1125 CK 831* 2,424* 2,493* Glucose: Recent Labs 11/23/18 0805 GLUCOSE 111 Microbiology Microbiology Results (Last 30 days) Procedure Component Value Units Date/Time Blood culture [[id number]] Collected: 11/17/18 1420 Lab Status: Final result Specimen: Blood from Wrist, Left Updated: 11/22/18 1501 Blood Culture No growth at 5 days. Lower Respiratory Culture Bronchial Alveolar Lavage [[id number]] (Abnormal) Collected: 11/17/18 1349 Lab Status: Final result Specimen: Bronchial Alveolar Lavage Updated: 11/19/18 0922 Lower Respiratory Culture No growth Gram Stain -- Few Neutrophils seen Rare Gram Positive Rods seen Blood culture [[id number]] Collected: 11/17/18 1230 Lab Status: Final result Specimen: Blood from Hand, Right Updated: 11/22/18 1501 Blood Culture No growth at 5 days. Lower Respiratory Culture Tracheal Aspirate [[id number]] Collected: 11/16/18 1009 Lab Status: Final result Specimen: Tracheal Aspirate Updated: 11/16/18 1338 Gram Stain -- Few Neutrophils seen No squamous epithelial cells seen No microorganisms seen. Useful clinical information is unlikely from specimens in which no microorganisms are seen on Gram Stain, Culture not performed. Blood culture [[id number]] Collected: 11/14/18 0143 Lab Status: Final result Specimen: Blood Updated: 11/19/18 0701 Blood Culture No growth at 5 days. Legionella Urinary Antigen [[id number]] Collected: 11/13/18 2350 Lab Status: Final result Specimen: Urine Updated: 11/14/18 0821 Legionella Urinary Antigen Negative Comment: A negative Legionella Urinary Antigen by EIA suggests no recent or current infection with L. pneumophila Serogroup 1. Antigen may not be present in urine in early infection, and the level of antigen present in the urine may be below the detection limit of the test. Sensitivity: 95% Specificity 95%. Blood culture [[id number]] Collected: 11/13/18 2240 Lab Status: Final result Specimen: Blood Updated: 11/19/18 0701 Blood Culture No growth at 5 days. Lower Respiratory Culture Bronchial Alveolar Lavage [[id number]] Collected: 11/13/182214 Lab Status: Final result Specimen: Bronchial Alveolar Lavage Updated: 11/16/18824 Lower Respiratory Culture No growth Gram Stain -- Few Neutrophils seen No squamous epithelial cells Rare mixed bacterial morphotypes suggestive of normal upper respiratory caryn Respiratory Panel PCR [[id number]] (Abnormal) Collected: 11/13/182214 Lab Status: Final result Specimen: Nasopharyngeal Swab Updated: 11/13/182349 Resp Panel Source SEAM PRESS OPERATOR Swab Resp Panel PCR Positive Comment: Respiratory Panels are performed on the MicroEnsure, using multiplexed PCR nucleic acid detection. Negative results do not preclude respiratory infection and should not be used as the sole basis for diagnosis, treatment or other management decisions. Adenovirus Not Detected Coronavirus HKU1 Not Detected Coronavirus NL63 Not Detected Coronavirus 229E Not Detected Coronavirus OC43 Not Detected Human Metapneumovirus Not Detected Human Rhino/Enterovirus Not Detected Influenza A Not Detected Influenza A H1 Not Detected Influenza A H1-2009 Detected Influenza A H3 Not Detected Influenza B Not Detected Parainfluenza 1 Not Detected Parainfluenza 2 Not Detected Parainfluenza 3 Not Detected Parainfluenza 4 Not Detected Respiratory Syncytial Virus Not Detected Chlamydophila pneumoniae Not Detected Mycoplasma pneumoniae Not Detected Imaging/Studies: None new Medications: Scheduled: ??? clotrimazole 10 mg Oral 5 Times Daily ??? acetaminophen 1,000 mg Oral Q6H ROSEMARY ??? lidocaine 1 patch Transdermal Daily And ??? lidocaine 1 patch Transdermal Nightly ??? citalopram 40 mg Oral Daily ??? gabapentin 300 mg Oral TID ??? traZODone 12.5 mg Oral Nightly ??? sodium chloride 0.9 % 5 mL Intravenous BID ??? enoxaparin 40 mg Subcutaneous Nightly ??? pantoprazole 40 mg Oral Daily ??? senna-docusate 1 tablet Oral BID ??? folic acid 1 mg Oral Daily ??? cyanocobalamin (vitamin B-12) 1,000 mcg Oral Daily ??? insulin lispro 1-4 Units Subcutaneous Q4H ROSEMARY ??? ipratropium-albuterol 3 mL Nebulization Q4H ROSEMARY Infusions: ??? sodium chloride 0.9% 10 mL/hr (11/19/18 0120) PRNs: diphenoxylate-atropine, sodium chloride 0.9 %, lidocaine, bisacodyl, Glucose 40% oral gel OR dextrose OR glucagon (human recombinant) Poppy Pino is a 58 year old female with past medical history of COPD on home O2 2-3L, IBS, diabetes mellitus, and hypertension presenting as transferred from [facility] for ARDS in the setting of Influenza HI 2008 after recently completing a course of TamiFlu and steroids for influenza and COPD exacerbation. Hospital course complicated by recurrent fever of unrevealing infectious work-up, s/p zosyn. ?? Patient doing well with pena out, will follow up BMP to evaluate her previous ANGE. Still weak but slowly improving. Plans for discharge to rehab if possible today. Continue with clortrimazole trochefor oral candidiasis PLAN: ?? #ARDS #COPD exacerbation #Influenza H1 -2008 - Blood cultures NGTD - Sputum cultures with GPRS - S/P 5 days of zosyn for COPD exacerbation - Droplet precautions - PT/OT for diffuse global weakness ?? #Hypertension - hold lisinopril - hold home HCTZ for now ?? #ANGE #Urinary retention - Daily labs to monitor - Need fluids monitored today, will probably give another bolus this afternoon - UA w/ microscopy - Pena out 11/23 - Q6h bladder scan #Oral Candidiasis - Clortrimazole Sachin 11/23- for 14 days ?? #Normocytic Anemia - Daily CBC - Folate 100 mg daily - Vitamin B12 1mg daily ?? #Acquired Hypothyroid - likely in the setting of infection - repeat outpatient thyroid studies ?? #Hyperlipidemia - Holding statin until CK resolved ?? #Spastic Esophageal disorder - C/w home gabapentin ?? #IBS - C/w home lomotil ?? #Sleep #Depression - Trazadone QHS - Hold Quetiapine - Citalopram ?? # Other - DVT ppx: Lovenox - Diet: Dysphagia soft - code status: Full Code [] Alternative decision-maker Harsha Tejeda MD, PGY-1 Medicine Purple #[id number] 11/24/18 Associated attestation - Kim Dick MD - 11/24/2018 7:08 PM EDT Attending Attestation Please see Dr. Tejeda's note for details of the patient history of presentation and data. I have discussed, reviewed and agree with the documented History, Physical findings, Assessment and Plan ofcare. I have examined the patient myself and personally reviewed all studies. In addition, I certify thatI am a D-H credentialed attending provider with admitting privileges and that the patient meets or has met medical necessity to require an inpatient IPI level of care meeting a minimum of two midnights or is on the [facility] inpatient only procedure list (status C) due to: the patient has met Inpatient IPI criteria and is awaiting rehabilitation or snf facility placement with active referrals in process * Harsha Tejeda MD - 11/23/2018 7:18 AM EDT Images from the original note were not included. Hospital Medicine Progress Note Patient Name: Poppy Pino Date of Admission: 11/13/2018 ( Hospital Day 10 days ) Service: Medicine Purple ID:Poppy Pino??is a 58 y.o.??female??w/ PMH of COPD on home O2 2-3L, IBS, GERD, diabetes mellitus, and HTN who presented as a transfer from [facility] for acute hypoxemic and hypercarbic respiratory failure and ARDS in the setting of recent influenza infection. Active Problems: Active Hospital Problems Diagnosis ??? Influenza due to identified novel H1N1 influenza virus with identified novel H1N1 influenza pneumonia ??? Viral sepsis ??? Acquired hypothyroidism ??? ANGE (acute kidney injury) ??? ARDS (adult respiratory distress syndrome) ??? Influenza vaccination contraindicated ??? COPD, moderate ??? Depression ??? Anxiety ??? Cigarette smoker ??? Hypertension ??? Dyspnea Resolved Hospital Problems No resolved problems to display. 24 hr events/Subjective: - New ANGE yesterday treated with 1 L LR and holding nephrotoxic drugs in the setting of hypotension - NAEO - Patient feeling stronger this AM, notices that she has - Afebrile, pressures continue to be on low side 90s-100s systolic, Sating 92% on 1L NC - CBC improving WBC, BMP with improving creatinine Physical Exam: Last value Range last 24 hrs Temperature Temp: 36.9 ??C (98.4 ??F) Temp: [36.3 ??C (97.3 ??F)-37.2 ??C (99 ??F)] Heart Rate Heart Rate: 89 Heart Rate: [73-94] Blood Pressure BP: 112/56 BP: (84-112)/(35-65) Respiratory Rate Resp: 20 Resp: [20] SpO2 SpO2: 95 % SpO2: [91 %-96 %] Intake/Output Summary (Last 24 hours) at 11/23/2018 1049 Last data filed at 11/23/2018 1033 Gross per 24 hour Intake 1240 ml Output 1050 ml Net 190 ml cumulative I/O's since admission: Patient Vitals for the past 168 hrs: Weight 11/23/18 0329 81.7 kg (180 lb 1.6 oz) 11/21/18 0353 80 kg (176 lb 6.4 oz) 11/20/18 0600 80.4 kg (177 lb 4 oz) 11/19/18 0024 81.8 kg (180 lb 5.4 oz) 11/18/18 0000 85.3 kg (188 lb 0.8 oz) 11/17/18 0000 83.9 kg (184 lb 15.5 oz) ?? Gen: NAD in bed HEENT: moist mucous membranes CV: RRR, normal S1 and S2, no murmurs, rubs, or gallops Resp: Diffuse rhonchi throughout left and right lungs Abd: +BS, soft, nontender, nondistended Ext: warm, well-perfused, 2+ PT/DP pulses Skin: No rashes, erythema, petechiae Neuro: Alert and oriented x 3, follows commands, globally weak upper and lower extremities without focal neuro deficits Labs Recent Labs 11/23/18 0805 11/22/18 0715 11/21/18 0617 WBC 11.1* 14.3* 11.3* HGB 10.6* 10.9* 11.3* HCT 33.5* 34.8* 37.2 PLATELET 308 260 271 Recent Labs 11/23/18 0805 11/22/18 0715 11/21/18 0617 NA 140 137 140 K 4.1 3.8 3.9 CL 102 98 102 CO2 23 23 22 BUN 31* 42* 30* CREATININE 1.15 1.84* 0.93 No results for input(s): AST, ALT, ALKPHOS, BILITOT, BILIDIR in the last 168 hours. Recent Labs 11/23/18 0805 11/22/18 0715 11/21/18 0617 11/18/18 2140 11/18/18 0030 CALCIUM 9.5 9.5 9.5 < > 9.3 8.6 MAGNESIUM -- -- -- -- 0.75 0.79 PHOS -- -- -- -- -- 3.8 < > = values in this interval not displayed. No results for input(s): INR, PT, PTT in the last 168 hours. Recent Labs 11/20/18 0135 11/18/18 0030 11/17/18 1125 CK 831* 2,424* 2,493* Glucose: Recent Labs 11/23/18 0805 GLUCOSE 111 Microbiology Microbiology Results (Last 30 days) Procedure Component Value Units Date/Time Blood culture [[id number]] Collected: 11/17/18 1420 Lab Status: Final result Specimen: Blood from Wrist, Left Updated: 11/22/18 1501 Blood Culture No growth at 5 days. Lower Respiratory Culture Bronchial Alveolar Lavage [[id number]] (Abnormal) Collected: 11/17/18 1349 Lab Status: Final result Specimen: Bronchial Alveolar Lavage Updated: 11/19/18 0922 Lower Respiratory Culture No growth Gram Stain -- Few Neutrophils seen Rare Gram Positive Rods seen Blood culture [[id number]] Collected: 11/17/18 1230 Lab Status: Final result Specimen: Blood from Hand, Right Updated: 11/22/18 1501 Blood Culture No growth at 5 days. Lower Respiratory Culture Tracheal Aspirate [[id number]] Collected: 11/16/18 1009 Lab Status: Final result Specimen: Tracheal Aspirate Updated: 11/16/18 1338 Gram Stain -- Few Neutrophils seen No squamous epithelial cells seen No microorganisms seen. Useful clinical information is unlikely from specimens in which no microorganisms are seen on Gram Stain, Culture not performed. Blood culture [[id number]] Collected: 11/14/18 0143 Lab Status: Final result Specimen: Blood Updated: 11/19/18 0701 Blood Culture No growth at 5 days. Legionella Urinary Antigen [[id number]] Collected: 11/13/18 2350 Lab Status: Final result Specimen: Urine Updated: 11/14/18 0821 Legionella Urinary Antigen Negative Comment: A negative Legionella Urinary Antigen by EIA suggests no recent or current infection with L. pneumophila Serogroup 1. Antigen may not be present in urine in early infection, and the level of antigen present in the urine may be below the detection limit of the test. Sensitivity: 95% Specificity 95%. Blood culture [[id number]] Collected: 11/13/18 2240 Lab Status: Final result Specimen: Blood Updated: 11/19/18 0701 Blood Culture No growth at 5 days. Lower Respiratory Culture Bronchial Alveolar Lavage [[id number]] Collected: 11/13/182214 Lab Status: Final result Specimen: Bronchial Alveolar Lavage Updated: 11/16/18 0825 Lower Respiratory Culture No growth Gram Stain -- Few Neutrophils seen No squamous epithelial cells Rare mixed bacterial morphotypes suggestive of normal upper respiratory caryn Respiratory Panel PCR [[id number]] (Abnormal) Collected: 11/13/182214 Lab Status: Final result Specimen: Nasopharyngeal Swab Updated: 11/13/182349 Resp Panel Source SEAM PRESS OPERATOR Swab Resp Panel PCR Positive Comment: Respiratory Panels are performed on the MicroEnsure, using multiplexed PCR nucleic acid detection. Negative results do not preclude respiratory infection and should not be used as the sole basis for diagnosis, treatment or other management decisions. Adenovirus Not Detected Coronavirus HKU1 Not Detected Coronavirus NL63 Not Detected Coronavirus 229E Not Detected Coronavirus OC43 Not Detected Human Metapneumovirus Not Detected Human Rhino/Enterovirus Not Detected Influenza A Not Detected Influenza A H1 Not Detected Influenza A H1-2009 Detected Influenza A H3 Not Detected Influenza B Not Detected Parainfluenza 1 Not Detected Parainfluenza 2 Not Detected Parainfluenza 3 Not Detected Parainfluenza 4 Not Detected Respiratory Syncytial Virus Not Detected Chlamydophila pneumoniae Not Detected Mycoplasma pneumoniae Not Detected Imaging/Studies: None new Medications: Scheduled: ??? acetaminophen 1,000 mg Oral Q6H ROSEMARY ??? lidocaine 1 patch Transdermal Daily And ??? lidocaine 1 patch Transdermal Nightly ??? citalopram 40 mg Oral Daily ??? gabapentin 300 mg Oral TID ??? traZODone 12.5 mg Oral Nightly ??? sodium chloride 0.9 % 5 mL Intravenous BID ??? enoxaparin 40 mg Subcutaneous Nightly ??? pantoprazole 40 mg Oral Daily ??? senna-docusate 1 tablet Oral BID ??? folic acid 1 mg Oral Daily ??? cyanocobalamin (vitamin B-12) 1,000 mcg Oral Daily ??? insulin lispro 1-4 Units Subcutaneous Q4H ROSEMARY ??? ipratropium-albuterol 3 mL Nebulization Q4H ROSEMARY Infusions: ??? sodium chloride 0.9% 10 mL/hr (11/19/18 0120) PRNs: sodium chloride 0.9 %, lidocaine, bisacodyl, Glucose 40% oral gel OR dextrose OR glucagon (human recombinant) Poppy Pino is a 58 year old female with past medical history of COPD on home O2 2-3L, IBS, diabetes mellitus, and hypertension presenting as transferred from OSH for ARDS in the setting of Influenza [place] 2008 after recently completing a course of TamiFlu and steroids for influenza and COPD exacerbation. Hospital course complicated by recurrent fever of unrevealing infectious work-up, s/p zosyn. ?? Continue monitoring patient, she appears stronger and looks good today. We will discontinue her pena and see if she voids. Her ANGE has resolved this AM. Per OT and PT patient will need rehab placement. We will continue looking. PLAN: ?? #ARDS #COPD exacerbation #Influenza H1 -2009 - Blood cultures NGTD - Sputum cultures with GPRS - S/P 5 days of zosyn for COPD exacerbation - Droplet precautions - PT/OT for diffuse global weakness ?? #Hypertension - hold lisinopril - hold home HCTZ for now ?? #ANGE #Urinary retention - Daily labs to monitor - Need fluids monitored today, will probably give another bolus this afternoon - UA w/ microscopy - Pena out 11/23 - Q6h bladder scan ?? #Normocytic Anemia - Daily CBC - Folate 100 mg daily - Vitamin B12 1mg daily ?? #Acquired Hypothyroid - likely in the setting of infection - repeat outpatient thyroid studies ?? #Hyperlipidemia - Holding statin until CK resolved ?? #Spastic Esophageal disorder - C/w home gabapentin ?? #IBS - C/w home lomotil ?? #Sleep #Depression - Trazadone QHS - Hold Quetiapine - Citalopram ?? # Other - DVT ppx: Lovenox - Diet: Dysphagia soft - code status: Full Code [] Alternative decision-maker Harsha Tejeda MD, PGY-1 [facility] #[id number] 11/23/18 Associated attestation - Kim Dick MD - 11/23/2018 8:23 PM EDT Attending Attestation Please see Dr. Tejeda's note for details of the patient history of presentation and data. I have discussed, reviewed and agree with the documented History, Physical findings, Assessment and Plan ofcare. I have examined the patient myself and personally reviewed all studies. In addition, I certify thatI am a D-H credentialed attending provider with admitting privileges and that the patient meets or has met medical necessity to require an inpatient IPI level of care meeting a minimum of two midnights or is on the CMS inpatient only procedure list (status C) due to: the patient has met Inpatient IPI criteria and is awaiting rehabilitation or snf facility placement with active referrals in process * Carlie Talbotlex H - 11/22/2018 1:28 PM EDT Images from the original note were not included. Hospital Medicine Progress Note Patient Name: Poppy Pino Date of Admission: 11/13/2018 ( Hospital Day 9 days ) Service: Medicine [facility] ID:Poppy Pino??is a 58 y.o.??female??w/ PMH of COPD on home O2 2-3L, IBS, GERD, diabetes mellitus, and HTN who presented as a transfer from [facility] for acute hypoxemic and hypercarbic respiratory failure and ARDS in the setting of recent influenza infection. Active Problems: Active Hospital Problems Diagnosis ??? Shock ??? ANGE (acute kidney injury) ??? ARDS (adult respiratory distress syndrome) Resolved Hospital Problems No resolved problems to display. 24 hr events/Subjective: - Hypotensive last night, lisinopril 10 mg given - New ANGE - Otherwise, feels fine, no lightedheadness/dizziness. No new symptoms - Concerned about PCP appointment and insulin dosing at home. Physical Exam: Last value Range last 24 hrs Temperature Temp: 36.8 ??C (98.2 ??F) Temp: [36.5 ??C (97.7 ??F)-36.9 ??C (98.4 ??F)] Heart Rate Heart Rate: 89 Heart Rate: [76-100] Blood Pressure BP: (!) 100/35 BP: (86-105)/(35-69) Respiratory Rate Resp: 20 Resp: [16-24] SpO2 SpO2: 92 % SpO2: [92 %-99 %] Intake/Output Summary (Last 24 hours) at 11/22/2018 1328 Last data filed at 11/22/2018 0629 Gross per 24 hour Intake 1270 ml Output 175 ml Net 1095 ml cumulative I/O's since admission: Patient Vitals for the past 168 hrs: Weight 11/21/18 0353 80 kg (176 lb 6.4 oz) 11/20/18 0600 80.4 kg (177 lb 4 oz) 11/19/18 0024 81.8 kg (180 lb 5.4 oz) 11/18/18 0000 85.3 kg (188 lb 0.8 oz) 11/17/18 0000 83.9 kg (184 lb 15.5 oz) 11/16/18 0200 84 kg (185 lb 3 oz) ?? Gen: NAD in bed HEENT: moist mucous membranes CV: RRR, normal S1 and S2, no murmurs, rubs, or gallops Resp: Diffuse rhonchi throughout left and right lungs Abd: +BS, soft, nontender, nondistended Ext: warm, well-perfused, 2+ PT/DP pulses Skin: No rashes, erythema, petechiae Neuro: Alert and oriented x 3, follows commands, globally weak upper and lower extremities without focal neuro deficits Labs Recent Labs 11/22/18 0715 11/21/18 0617 11/20/18 0135 WBC 14.3* 11.3* 11.5* HGB 10.9* 11.3* 11.2* HCT 34.8* 37.2 34.8* PLATELET 260 271 224 Recent Labs 11/22/18 0715 11/21/18 0617 11/20/18 0135 NA 137 140 135 K 3.8 3.9 3.8 CL 98 102 95* CO2 23 22 23 BUN 42* 30* 19* CREATININE 1.84* 0.93 0.73 No results for input(s): AST, ALT, ALKPHOS, BILITOT, BILIDIR in the last 168 hours. Recent Labs 11/22/18 0715 11/21/18 0617 11/20/18 0135 11/18/18 2140 11/18/18 0030 11/16/18 0225 CALCIUM 9.5 9.5 10.1 < > 9.3 8.6 < > 8.8 MAGNESIUM -- -- -- -- 0.75 0.79 -- 1.02 PHOS -- -- -- -- -- 3.8 -- -- < > = values in this interval not displayed. No results for input(s): INR, PT, PTT in the last 168 hours. Recent Labs 11/20/18 0135 11/18/18 0030 11/17/18 1125 CK 831* 2,424* 2,493* Glucose: Recent Labs 11/22/18 0715 GLUCOSE 103 Microbiology Microbiology Results (Last 30 days) Procedure Component Value Units Date/Time Blood culture [[id number]] Collected: 11/17/18 1420 Lab Status: Preliminary result Specimen: Blood from Wrist, Left Updated: 11/21/18 1501 Blood Culture No growth at 4 days. Lower Respiratory Culture Bronchial Alveolar Lavage [[id number]] (Abnormal) Collected: 11/17/18 1349 Lab Status: Final result Specimen: Bronchial Alveolar Lavage Updated: 11/19/18 0922 Lower Respiratory Culture No growth Gram Stain -- Few Neutrophils seen Rare Gram Positive Rods seen Blood culture [[id number]] Collected: 11/17/18 1230 Lab Status: Preliminary result Specimen: Blood from Hand, Right Updated: 11/21/18 1501 Blood Culture No growth at 4 days. Lower Respiratory Culture Tracheal Aspirate [[id number]] Collected: 11/16/18 1009 Lab Status: Final result Specimen: Tracheal Aspirate Updated: 11/16/18 1338 Gram Stain -- Few Neutrophils seen No squamous epithelial cells seen No microorganisms seen. Useful clinical information is unlikely from specimens in which no microorganisms are seen on Gram Stain, Culture not performed. Blood culture [[id number]] Collected: 11/14/18 0143 Lab Status: Final result Specimen: Blood Updated: 11/19/18 0701 Blood Culture No growth at 5 days. Legionella Urinary Antigen [[id number]] Collected: 11/13/18 235 Lab Status: Final result Specimen: Urine Updated: 11/14/18 0821 Legionella Urinary Antigen Negative Comment: A negative Legionella Urinary Antigen by EIA suggests no recent or current infection with L. pneumophila Serogroup 1. Antigen may not be present in urine in early infection, and the level of antigen present in the urine may be below the detection limit of the test. Sensitivity: 95% Specificity 95%. Blood culture [[id number]] Collected: 11/13/18 2240 Lab Status: Final result Specimen: Blood Updated: 11/19/18 0701 Blood Culture No growth at 5 days. Lower Respiratory Culture Bronchial Alveolar Lavage [[id number]] Collected: 11/13/182214 Lab Status: Final result Specimen: Bronchial Alveolar Lavage Updated: 11/16/18 0825 Lower Respiratory Culture No growth Gram Stain -- Few Neutrophils seen No squamous epithelial cells Rare mixed bacterial morphotypes suggestive of normal upper respiratory caryn Respiratory Panel PCR [[id number]] (Abnormal) Collected: 11/13/182214 Lab Status: Final result Specimen: Nasopharyngeal Swab Updated: 11/13/182349 Resp Panel Source SEAM PRESS OPERATOR Swab Resp Panel PCR Positive Comment: Respiratory Panels are performed on the MicroEnsure, using multiplexed PCR nucleic acid detection. Negative results do not preclude respiratory infection and should not be used as the sole basis for diagnosis, treatment or other management decisions. Adenovirus Not Detected Coronavirus HKU1 Not Detected Coronavirus NL63 Not Detected Coronavirus 229E Not Detected Coronavirus OC43 Not Detected Human Metapneumovirus Not Detected Human Rhino/Enterovirus Not Detected Influenza A Not Detected Influenza A H1 Not Detected Influenza A H1-2009 Detected Influenza A H3 Not Detected Influenza B Not Detected Parainfluenza 1 Not Detected Parainfluenza 2 Not Detected Parainfluenza 3 Not Detected Parainfluenza 4 Not Detected Respiratory Syncytial Virus Not Detected Chlamydophila pneumoniae Not Detected Mycoplasma pneumoniae Not Detected Imaging/Studies: None new Medications: Scheduled: ??? bolus IV fluid Intravenous Once ??? acetaminophen 1,000 mg Oral Q6H ROSEMARY ??? lidocaine 1 patch Transdermal Daily And ??? lidocaine 1 patch Transdermal Nightly ??? citalopram 40 mg Oral Daily ??? gabapentin 300 mg Oral TID ??? traZODone 12.5 mg Oral Nightly ??? sodium chloride 0.9 % 5 mL Intravenous BID ??? enoxaparin 40 mg Subcutaneous Nightly ??? pantoprazole 40 mg Oral Daily ??? senna-docusate 1 tablet Oral BID ??? folic acid 1 mg Oral Daily ??? cyanocobalamin (vitamin B-12) 1,000 mcg Oral Daily ??? insulin lispro 1-4 Units Subcutaneous Q4H ROSEMARY ??? ipratropium-albuterol 3 mL Nebulization Q4H ROSEMARY Infusions: ??? sodium chloride 0.9% 10 mL/hr (11/19/18 0120) PRNs: sodium chloride 0.9 %, lidocaine, bisacodyl, Glucose 40% oral gel OR dextrose OR glucagon (human recombinant) Poppy Pino is a 58 year old female with past medical history of COPD on home O2 2-3L, IBS, diabetes mellitus, and hypertension presenting as transferred from OSH for ARDS in the setting of Influenza [place] 2008 after recently completing a course of TamiFlu and steroids for influenza and COPD exacerbation. Hospital course complicated by recurrent fever of unrevealing infectious work-up, currently on Zosyn. ?? I believe that restarting her anti-hypertensives may have caused her low BPs and ANGE. She still hasurine output, which we will follow throughout the day today and give her IV fluids for support. Will repeat UA with microscopy looking for casts, since she has had a pena and unlikely to be due to aUTI. Encouraged PO intake. Otherwise, she is stable for now. Will need rehab for disposition. PLAN: ?? #ARDS #COPD exacerbation #Influenza H1 -2009 - Blood cultures NGTD - Sputum cultures with GPRS - S/P 5 days of zosyn for COPD exacerbation - Droplet precautions - PT/OT for diffuse global weakness ?? #Hypertension - hold lisinopril - hold home HCTZ for now ?? #ANGE #Urinary retention - Daily labs to monitor - Need fluids monitored today, will probably give another bolus this afternoon - UA w/ microscopy ?? #Normocytic Anemia - Daily CBC - Folate 100 mg daily - Vitamin B12 1mg daily ?? #Hypothyroid - likely in the setting of infection - repeat outpatient thyroid studies ?? #Hyperlipidemia - Holding statin until CK resolved ?? #Spastic Esophageal disorder - C/w home gabapentin ?? #IBS - C/w home lomotil ?? #Sleep #Depression - Trazadone QHS - Hold Quetiapine - Citalopram ?? # Other - DVT ppx: Lovenox - Diet: Dysphagia soft - code status: Full Code [] Alternative decision-maker Morgan Talbot MD, PGY-2 [facility] #[id number] 11/22/18 Associated attestation - Kim Dick MD - 11/22/2018 5:26 PM EDT Attending Attestation Please see Dr. Talbot's note for details of the patient history of presentation and data. I have discussed, reviewed and agree with the documented History, Physical findings, Assessment and Plan of care. I have examined the patient myself and personally reviewed all studies. In addition, I certify thatI am a D-H credentialed attending provider with admitting privileges and that the patient meets or has met medical necessity to require an inpatient IPI level of care meeting a minimum of two midnights or is on the CMS inpatient only procedure list (status C) due to: acute kidney injury necessitating close monitoring of fluid balance such as intravenous fluids and/or titration of medication to achieve optimal effect and minimize the chance of immediate or severe side effects and acute respiratory compromise and/or hypoxia requiring assessment every 4 hours and the ability to respond immediatel y to the patient's need Unfortunately, lisinopril was given last night. We think this is the cause of hypotension, which inconjunction with lisinopril effect, is the likely cause of ANGE, seen today on BMP. Hold lisinopril.Give additional LR boluses today and continue to closely monitor urine output and renal function. Pena remains in place due to failed voiding trial on 11/19. Anticipate discharge to rehab once medically stable, likely in the next 24-48 hours. * Jillian Lyon, RD - 11/21/2018 3:08 PM EDT Nutrition Progress Note Poppy Pino is a 58 y.o. female Reason for intervention: Follow up Nutrition Recommendations: Will offer Boost Glucose Control on all trays Will delete egg allergy as pt & family deny allergy Continue current diet; if hyperglycemic, consider addition of level 2 CHO Controlled Will provide paper pureed menu for pt/family to complete Patient Active Problem List Diagnosis Code ??? [...] J44.9, J98.4 ??? Influenza vaccination contraindicated Z28.09 ??? ARDS (adult respiratory distress syndrome) J80 ??? Shock R57.9 ??? ANGE (acute kidney injury) N17.9 Past Medical History: Diagnosis Date ??? Allergy liquid abuterol, egg sensitivity ??? Breathing problem im seeing dr zapata ??? Chronic pain ??? Diabetes mellitus 03/19/2016 ??? Digestive problems 12-11 ?? gerd, nutcracker syndrome abdominal gistention dr holder ??? ENT disease 3-[address] alex ??? Headache(784.0) ? Hypertensive disease they have said my bp is running high ??? Skin disorder ?? acne Active Orders Diet Puree diet Frequency: Effective Now Number of Occurrences: Until Specified Admit Weight: 82.4 kg Estimated body mass index is 29.35 kg/m?? as calculated from the following: Height as of this encounter: 165.1 cm (5' 5). Weight as of this encounter: 80 kg (176 lb 6.4 oz). Eckerty Body Weight (IBW): Eckerty body weight: 57 kg (125 lb 10.6 oz) Adjusted ideal body weight: 66.2 kg (145 lb 15.3 oz) Estimated needs: Calories:1600 Protein: 75 grams Today's medications: Lispro (not requiring) Lab Results Component Value Date NA 140 11/21/2018 K 3.9 11/21/2018 CL 102 11/21/2018 CO2 22 11/21/2018 BUN 30 (H) 11/21/2018 CREATININE 0.93 11/21/2018 GLUCOSE 103 11/21/2018 MAGNESIUM 0.75 11/18/2018 CALCIUM 9.5 11/21/2018 PHOS 3.8 11/18/2018 AST 30 11/13/2018 ALT 16 11/13/2018 ALKPHOS 89 11/13/2018 BILITOT 0.2 11/13/2018 BILIDIR 0.1 05/26/2012 TRIG 202 11/18/2018 Last Bowel Movement: 11/21/18 Assessment: F/u w/ pt & now out of ICU and off TFs. Pt now on pureed diet w/ fair appetite. She is agreeable to Boost Glucose Control on trays. Last A1C of 6.2 indicates good bld glu control; pt reports she is careful. Pt currently not requiring Lispro; if she becomes hyperglycemic, would suggest level 2 CHO Controlled diet restriction. Pt & family deny egg allergy; will remove from allergy list. Nutrition Services to follow I was able to reach the patient's provider, team pager #[phone], regarding above. VICKIE BARRIENTOS Beeper #: * Antonette Ulrich MD - 11/21/2018 7:13 AM EDT Images from the original note were not included. Hospital Medicine Progress Note Patient Name: Poppy Pino Date of Admission: 11/13/2018 ( Hospital Day 8 days ) Service: Medicine [facility] ID:Poppy Pino??is a 58 y.o.??female??w/ PMH of COPD on home O2 2-3L, IBS, GERD, diabetes mellitus, and HTN who presented as a transfer from [facility] for acute hypoxemic and hypercarbic respiratory failure and ARDS in the setting of recent influenza infection. Active Problems: Active Hospital Problems Diagnosis ??? Shock ??? ANGE (acute kidney injury) ??? ARDS (adult respiratory distress syndrome) Resolved Hospital Problems No resolved problems to display. 24 hr events/Subjective: - Transferred to hospital medicine service - Home antihypertensives restarted - Patient with decreased urine output over night 250cc for the shift - NAEO - States she feels better this am, feeling stronger. - Afebrile, continues to be tachycardic to low 100s, BP labile from 110s-160s systolic, sating 92% 1.5L NC - WBC and Hgb stable, BMPstable Physical Exam: Last value Range last 24 hrs Temperature Temp: 36.7 ??C (98.1 ??F) Temp: [36 ??C (96.8 ??F)-37.1 ??C (98.8 ??F)] Heart Rate Heart Rate: 87 Heart Rate: [87-108] Blood Pressure BP: 111/68 BP: (111-168)/(68-93) Respiratory Rate Resp: 24 Resp: [24-35] SpO2 SpO2: 92 % SpO2: [91 %-100 %] Intake/Output Summary (Last 24 hours) at 11/21/2018 0714 Last data filed at 11/21/2018 0634 Gross per 24 hour Intake 750 ml Output 635 ml Net 115 ml cumulative I/O's since admission: Patient Vitals for the past 168 hrs: Weight 11/21/18 0353 80 kg (176 lb 6.4 oz) 11/20/18 06 80.4 kg (177 lb 4 oz) 11/19/18 0024 81.8 kg (180 lb 5.4 oz) 11/18/18 0000 85.3 kg (188 lb 0.8 oz) 11/17/18 0000 83.9 kg (184 lb 15.5 oz) 11/16/18 0200 84 kg (185 lb 3 oz) 11/15/18 0600 83.2 kg (183 lb 6.8 oz) ?? Gen: NAD in bed HEENT: moist mucous membranes CV: RRR, normal S1 and S2, no murmurs, rubs, or gallops Resp: Diffuse rhonchi throughout left and right lungs Abd: +BS, soft, nontender, nondistended Ext: warm, well-perfused, 2+ PT/DP pulses Skin: No rashes, erythema, petechiae Neuro: Alert and oriented x 2, follows commands, globally weak upper and lower extremities without focal neuro deficits Labs Recent Labs 11/21/18 0617 11/20/1813411/19/18 0345 WBC 11.3* 11.5* 9.6* HGB 11.3* 11.2* 9.6* HCT 37.2 34.8* 30.1* PLATELET 271 224 217 Recent Labs 11/20/1813411/19/1834411/18/18 2140 NA 135 136 140 K 3.8 4.3 4.5 CL 95* 95* 97* CO2 23 29 30 BUN 19* 24* 25* CREATININE 0.73 0.87 0.91 No results for input(s): AST, ALT, ALKPHOS, BILITOT, BILIDIR in the last 168 hours. Recent Labs 11/20/18 01311/19/18 0345 11/18/18 2140 11/18/18 0030 11/16/18 0225 CALCIUM 10.1 9.2 9.3 8.6 < > 8.8 MAGNESIUM -- -- 0.75 0.79 -- 1.02 PHOS -- -- -- 3.8 -- -- < > = values in this interval not displayed. No results for input(s): INR, PT, PTT in the last 168 hours. Recent Labs 11/20/18 0135 11/18/18 0030 11/17/18 1125 CK 831* 2,424* 2,493* Glucose: Recent Labs 11/20/18 0135 GLUCOSE 92 Microbiology Microbiology Results (Last 30 days) Procedure Component Value Units Date/Time Blood culture [[id number]] Collected: 11/17/18 1420 Lab Status: Preliminary result Specimen: Blood from Wrist, Left Updated: 11/20/18 1501 Blood Culture No growth at 3 days. Lower Respiratory Culture Bronchial Alveolar Lavage [[id number]] (Abnormal) Collected: 11/17/18 1349 Lab Status: Final result Specimen: Bronchial Alveolar Lavage Updated: 11/19/18 0922 Lower Respiratory Culture No growth Gram Stain -- Few Neutrophils seen Rare Gram Positive Rods seen Blood culture [[id number]] Collected: 11/17/18 1230 Lab Status: Preliminary result Specimen: Blood from Hand, Right Updated: 11/20/18 1501 Blood Culture No growth at 3 days. Lower Respiratory Culture Tracheal Aspirate [[id number]] Collected: 11/16/18 1009 Lab Status: Final result Specimen: Tracheal Aspirate Updated: 11/16/18 1338 Gram Stain -- Few Neutrophils seen No squamous epithelial cells seen No microorganisms seen. Useful clinical information is unlikely from specimens in which no microorganisms are seen on Gram Stain, Culture not performed. Blood culture [[id number]] Collected: 11/14/18 0143 Lab Status: Final result Specimen: Blood Updated: 11/19/18 0701 Blood Culture No growth at 5 days. Legionella Urinary Antigen [[id number]] Collected: 11/13/18 2350 Lab Status: Final result Specimen: Urine Updated: 11/14/18 0821 Legionella Urinary Antigen Negative Comment: A negative Legionella Urinary Antigen by EIA suggests no recent or current infection with L. pneumophila Serogroup 1. Antigen may not be present in urine in early infection, and the level of antigen present in the urine may be below the detection limit of the test. Sensitivity: 95% Specificity 95%. Blood culture [[id number]] Collected: 11/13/18 2240 Lab Status: Final result Specimen: Blood Updated: 11/19/18 0701 Blood Culture No growth at 5 days. Lower Respiratory Culture Bronchial Alveolar Lavage [[id number]] Collected: 11/13/182214 Lab Status: Final result Specimen: Bronchial Alveolar Lavage Updated: 11/16/18 0825 Lower Respiratory Culture No growth Gram Stain -- Few Neutrophils seen No squamous epithelial cells Rare mixed bacterial morphotypes suggestive of normal upper respiratory caryn Respiratory Panel PCR [[id number]] (Abnormal) Collected: 11/13/182214 Lab Status: Final result Specimen: Nasopharyngeal Swab Updated: 11/13/18 2350 Resp Panel Source SEAM PRESS OPERATOR Swab Resp Panel PCR Positive Comment: Respiratory Panels are performed on the MicroEnsure, using multiplexed PCR nucleic acid detection. Negative results do not preclude respiratory infection and should not be used as the sole basis for diagnosis, treatment or other management decisions. Adenovirus Not Detected Coronavirus HKU1 Not Detected Coronavirus NL63 Not Detected Coronavirus 229E Not Detected Coronavirus OC43 Not Detected Human Metapneumovirus Not Detected Human Rhino/Enterovirus Not Detected Influenza A Not Detected Influenza A H1 Not Detected Influenza A H1-2009 Detected Influenza A H3 Not Detected Influenza B Not Detected Parainfluenza 1 Not Detected Parainfluenza 2 Not Detected Parainfluenza 3 Not Detected Parainfluenza 4 Not Detected Respiratory Syncytial Virus Not Detected Chlamydophila pneumoniae Not Detected Mycoplasma pneumoniae Not Detected Imaging/Studies: None new Medications: Scheduled: ??? acetaminophen 1,000 mg Oral Q6H ROSEMARY ??? lidocaine 1 patch Transdermal Daily And ??? lidocaine 1 patch Transdermal Nightly ??? citalopram 40 mg Oral Daily ??? gabapentin 300 mg Oral TID ??? diphenoxylate-atropine 1 tablet Oral 4 Times Daily ??? traZODone 12.5 mg Oral Nightly ??? sodium chloride 0.9 % 5 mL Intravenous BID ??? enoxaparin 40 mg Subcutaneous Nightly ??? pantoprazole 40 mg Oral Daily ??? lisinopril 10 mg Oral Nightly ??? polyethylene glycol 17 g Oral BID ??? senna-docusate 1 tablet Oral BID ??? folic acid 1 mg Oral Daily ??? cyanocobalamin (vitamin B-12) 1,000 mcg Oral Daily ??? insulin lispro 1-4 Units Subcutaneous Q4H ROSEMARY ??? ipratropium-albuterol 3 mL Nebulization Q4H ROSEMARY Infusions: ??? sodium chloride 0.9% 10 mL/hr (11/19/18 0120) PRNs: sodium chloride 0.9 %, lidocaine, bisacodyl, Glucose 40% oral gel OR dextrose OR glucagon (human recombinant) Poppy Pino is a 58 year old female with past medical history of COPD on home O2 2-3L, IBS, diabetes mellitus, and hypertension presenting as transferred from OSH for ARDS in the setting of Influenza HI 2008 after recently completing a course of TamiFlu and steroids for influenza and COPD exacerbation. Hospital course complicated by recurrent fever of unrevealing infectious work-up, currently on Zosyn. ?? Patient now s/p zosyn, 48 hours following extubation. She has been started on home lisinopril for hypertension. Patient making strides from her presentation to the hospital. She already looks much stronger than she did yesterday, more conversational with stable labs and vitals. Will need PT/OT to see the patient to for therapy and recommendations for placement. PLAN: ?? #ARDS #COPD exacerbation #Influenza H1 -2008 - Blood cultures NGTD - Sputum cultures with GPRS - S/P 5 days of zosyn for COPD exacerbation - Droplet precautions - PT/OT for diffuse global weakness ?? #Hypertension - C/w home lisinopril - hold home HCTZ for now ?? #ANGE #Urinary retention - Daily labs to monitor - Voiding trial 11/19, repeat when patient more alert/able ?? #Normocytic Anemia - Daily CBC - Folate 100 mg daily - Vitamin B12 1mg daily ?? #Hypothyroid - likely in the setting of infection - repeat outpatient thyroid studies ?? #Hyperlipidemia - Holding statin until CK resolved ?? #Spastic Esophageal disorder - C/w home gabapentin ?? #IBS - C/w home lomotil ?? #Sleep #Depression - Trazadone QHS - Hold Quetiapine - Citalopram ?? # Other - DVT ppx: Lovenox - Diet: Dysphagia soft - code status: Full Code [] Alternative decision-maker Harsha Tejeda MD, PGY-1 Medicine [facility] #[id number] Attending Attestation Please see Ileana's note for details of the patient history of presentation and data. I have discussed, reviewed and agree with the documented History, Physical findings, Assessment and Plan of care. I have examined the patient myself and personally reviewed all studies. In addition, I certify thatI am a [facility]-H credentialed attending provider with admitting privileges and that the patient meets or has met medical necessity to require an inpatient IPI level of care meeting a minimum of two midnights or is on the CMS inpatient only procedure list (status C) due to: the patient has met Inpatient IPI criteria and is awaiting rehabilitation or snf facility placement with active referrals in process Antonette Ulrich MD * Lizbet Diaz RN - 11/20/2018 5:56 PM EDT Pt transferred to [facility] Rm 262. DBP elevated, tachypneaic other VSS on 2L. José Manuel at bedside. Most Recent Vitals: 11/20/18 1721 BP: (!) 144/91 Pulse: (!) 101 Resp: 28 Temp: 36.9 ??C (98.4 ??F) SpO2: 100% * Harsha Tejeda MD - 11/20/2018 1:17 PM EDT Images from the original note were not included. Hospital Medicine Progress Note Patient Name: Poppy Pino Date of Admission: 11/13/2018 ( Hospital Day 7 days ) Service: Medicine Purple ID: Poppy Pino is a 58 y.o. female w/ PMH of COPD on home O2 2-3L, IBS, GERD, diabetes mellitus, and HTN who presented as a transfer from [facility] for acute hypoxemic and hypercarbic respiratory failure and ARDS in the setting of recent influenza infection, now HD# 6. Active Problems: Active Hospital Problems Diagnosis ??? Shock ??? ANGE (acute kidney injury) ??? ARDS (adult respiratory distress syndrome) Resolved Hospital Problems No resolved problems to display. 24 hr events/Subjective: - Patient transferred to hospital medicine team - Restarted home lisinopril Brief hospital course: #ARDS #COPD exacerbation #Influenza H1 -2008 The patient was started on the ARDS ventilator protocol. She was sedated with fentanyl and versed and paralyzed with Nimbex for ventilator synchrony. She was not proned as her ABGs showed good oxygenation and it was thought that the risk of proning outweighed the potential benefits. She was startedon Vancomycin and Zosyn for empiric coverage, particularly given contact with the healthcare system. Per ID since the patient had completed a course of TamiFlu several weeks ago further influenza treatment was not necessary. Steroids were not given as the patient had ARDS. Sputum cultures grew upper respiratory caryn and Vancomycin was discontinued. She continued having intermittent fevers, but in fectious work-up continued to be unrevealing. She completed a 5 day course of Zosyn. Her fevers resolved. She was extubated on 11/19/18 to [place] and her oxygen saturations remained stable. ?? #Blood Pressure The patient's home lisinopril was initially held as she was hypotensive and requiring levophed. Herlevophed was weaned. On hospital day 6 she was hypertensive to 150-170s and her home lisinopril wasre-started. ?? #Volume overload The patient was noted to have bilateral lower extremity edema. She was diuresed with IV Lasix pushes as tolerated by her renal function. ?? #ANGE #Urinary retention On presentation the patient had a creatinine of 1.3 up from her baseline of about 0.7. This what thought to be pre-renal in nature. Her creatinine downtrended to baseline and diuresis was pursued as tolerated by her renal function. Patient had a trial of voiding 24 hours ago, overnight had increasing, bladder scan with high volume, pena returned returned with resolution of agitation. ?? #Anemia The patient was noted to be anemic. Work-up revealed a low B12, folate, iron, and iron saturation. She was started on folate and B12 supplementation. Iron supplementation was deferred given her acuteinfection. Physical Exam: Last value Range last 24 hrs Temperature Temp: 36.8 ??C (98.3 ??F) Temp: [36.7 ??C (98.1 ??F)-37.1 ??C (98.8 ??F)] Heart Rate Heart Rate: 96 Heart Rate: [83-108] Blood Pressure BP: 127/69 BP: (115-178)/(69-109) Respiratory Rate Resp: 24 Resp: [16-31] SpO2 SpO2: 96 % SpO2: [91 %-100 %] Intake/Output Summary (Last 24 hours) at 11/20/2018 1318 Last data filed at 11/20/2018 0600 Gross per 24 hour Intake 100 ml Output 2030 ml Net -1930 ml cumulative I/O's since admission: Patient Vitals for the past 168 hrs: Weight 11/20/18 0600 80.4 kg (177 lb 4 oz) 11/19/18 0024 81.8 kg (180 lb 5.4 oz) 11/18/18 0000 85.3 kg (188 lb 0.8 oz) 11/17/18 0000 83.9 kg (184 lb 15.5 oz) 11/16/18 0200 84 kg (185 lb 3 oz) 11/15/18 0600 83.2 kg (183 lb 6.8 oz) 11/13/18 2252 82.4 kg (181 lb 10.5 oz) Gen: NAD in bed HEENT: moist mucous membranes CV: RRR, normal S1 and S2, no murmurs, rubs, or gallops Resp: Diffuse rhonchi throughout left and right lungs Abd: +BS, soft, nontender, nondistended Ext: warm, well-perfused, 2+ PT/DP pulses Skin: No rashes, erythema, petechiae Neuro: Alert and oriented x 2, follows commands, globally weak upper and lower extremities without focal neuro deficits Labs Recent Labs 11/20/1813411/19/185 11/18/18 0030 WBC 11.5* 9.6* 11.9* HGB 11.2* 9.6* 9.0* HCT 34.8* 30.1* 28.5* PLATELET 224 217 201 Recent Labs 11/20/1813411/19/1834411/18/18 2140 NA 135 136 140 K 3.8 4.3 4.5 CL 95* 95* 97* CO2 23 29 30 BUN 19* 24* 25* CREATININE 0.73 0.87 0.91 Recent Labs 11/13/18 2220 AST 30 ALT 16 ALKPHOS 89 BILITOT 0.2 Recent Labs 11/20/18 0135 11/19/18 0345 11/18/18 2140 11/18/18 0030 11/16/18 0225 11/13/18 2220 CALCIUM 10.1 9.2 9.3 8.6 < > 8.8 < > 8.6 MAGNESIUM -- -- 0.75 0.79 -- 1.02 -- 0.94 PHOS -- -- -- 3.8 -- -- -- 5.6* < > = values in this interval not displayed. Recent Labs 11/13/18 2220 INR 1.1 PT 12.5 PTT 24* Recent Labs 11/20/18 0135 11/18/18 0030 11/17/18 1125 11/13/18 2220 CK 831* 2,424* 2,493* 159 TROPONINT -- -- -- <0.01 Glucose: Recent Labs 11/20/18 013 GLUCOSE 92 Microbiology Microbiology Results (Last 30 days) Procedure Component Value Units Date/Time Blood culture [[id number]] Collected: 11/17/18 1420 Lab Status: Preliminary result Specimen: Blood from Wrist, Left Updated: 11/19/18 1501 Blood Culture No growth at 2 days. Lower Respiratory Culture Bronchial Alveolar Lavage [[id number]] (Abnormal) Collected: 11/17/18 1349 Lab Status: Final result Specimen: Bronchial Alveolar Lavage Updated: 11/19/18 0922 Lower Respiratory Culture No growth Gram Stain -- Few Neutrophils seen Rare Gram Positive Rods seen Blood culture [[id number]] Collected: 11/17/18 1230 Lab Status: Preliminary result Specimen: Blood from Hand, Right Updated: 11/19/18 1501 Blood Culture No growth at 2 days. Lower Respiratory Culture Tracheal Aspirate [[id number]] Collected: 11/16/18 1009 Lab Status: Final result Specimen: Tracheal Aspirate Updated: 11/16/18 1338 Gram Stain -- Few Neutrophils seen No squamous epithelial cells seen No microorganisms seen. Useful clinical information is unlikely from specimens in which no microorganisms are seen on Gram Stain, Culture not performed. Blood culture [[id number]] Collected: 11/14/18 0143 Lab Status: Final result Specimen: Blood Updated: 11/19/18 0701 Blood Culture No growth at 5 days. Legionella Urinary Antigen [[id number]] Collected: 11/13/18 2350 Lab Status: Final result Specimen: Urine Updated: 11/14/18 0821 Legionella Urinary Antigen Negative Comment: A negative Legionella Urinary Antigen by EIA suggests no recent or current infection with L. pneumophila Serogroup 1. Antigen may not be present in urine in early infection, and the level of antigen present in the urine may be below the detection limit of the test. Sensitivity: 95% Specificity 95%. Blood culture [[id number]] Collected: 11/13/18 2240 Lab Status: Final result Specimen: Blood Updated: 11/19/18 0701 Blood Culture No growth at 5 days. 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 Negative results do not preclude respiratory infection and should not be used as the sole basis for diagnosis, treatment or other management decisions. Adenovirus Not Detected Coronavirus HKU1 Not Detected Coronavirus NL63 Not Detected Coronavirus 229E Not Detected Coronavirus OC43 Not Detected Human Metapneumovirus Not Detected Human Rhino/Enterovirus Not Detected Influenza A Not Detected Influenza A H1 Not Detected Influenza A H1-2009 Detected Influenza A H3 Not Detected Influenza B Not Detected Parainfluenza 1 Not Detected Parainfluenza 2 Not Detected Parainfluenza 3 Not Detected Parainfluenza 4 Not Detected Respiratory Syncytial Virus Not Detected Chlamydophila pneumoniae Not Detected Mycoplasma pneumoniae Not Detected Imaging/Studies Medications: Scheduled: ??? acetaminophen 1,000 mg Oral Q6H ROSEMARY ??? lidocaine 1 patch Transdermal Daily And ??? lidocaine 1 patch Transdermal Nightly ??? citalopram 40 mg Oral Daily ??? gabapentin 300 mg Oral TID ??? diphenoxylate-atropine 1 tablet Oral 4 Times Daily ??? traZODone 12.5 mg Oral Nightly ??? pantoprazole 40 mg Oral Daily ??? lisinopril 10 mg Oral Nightly ??? polyethylene glycol 17 g Oral BID ??? senna-docusate 1 tablet Oral BID ??? folic acid 1 mg Oral Daily ??? cyanocobalamin (vitamin B-12) 1,000 mcg Oral Daily ??? insulin lispro 1-4 Units Subcutaneous Q4H ROSEMARY ??? heparin (Porcine) 5,000 Units Subcutaneous Q8H ROSEMARY ??? ipratropium-albuterol 3 mL Nebulization Q4H ROSEMARY Infusions: ??? sodium chloride 0.9% 10 mL/hr (11/19/18 0120) PRNs: bisacodyl, Glucose 40% oral gel OR dextrose OR glucagon (human recombinant) Assessment: Poppy Pino is a 58 year old female with past medical history of COPD on home O2 2-3L, IBS, diabetes mellitus, and hypertension presenting as transferred from OSH for ARDS in the setting of Influenza HI 2008 after recently completing a course of TamiFlu and steroids for influenza and COPD exacerbation. Hospital course complicated by recurrent fever of unrevealing infectious work-up, currently on Zosyn. Patient now s/p zosyn, 24 hours following extubation. She has been started on home lisinopril for hypertension. Patient making strides from her presentation to the hospital. Plans to continue therapyshhéctor was receiving in the ICU at this time with primary goals including PT, OT and Speech, as well as monitoring her anemia and her ANGE in the setting of large urinary retention. Will continue to follow her examination as she currently has diffuse rhonchi 2/2 to the flu, however she has been nearingher baseline O2 requirement. Will likely need SNF at discharge. PLAN: #ARDS #COPD exacerbation #Influenza H1 -2008 - Blood cultures NGTD - Sputum cultures with GPRS - S/P 5 days of zosyn for COPD exacerbation - Droplet precautions - PT/OT for diffuse global weakness #Hypertension - C/w home lisinopril - hold home HCTZ for now #ANGE #Urinary retention - Daily labs to monitor - Voiding trial 11/19, repeat when patient more alert/able ?? #Normocytic Anemia - Daily CBC - Folate 100 mg daily - Vitamin B12 1mg daily #Hypothyroid - likely in the setting of infection - repeat outpatient thyroid studies #Hyperlipidemia - Holding statin until CK resolved #Spastic Esophageal disorder - C/w home gabapentin #IBS - C/w home lomotil #Sleep #Depression - Trazadone QHS - Hold Quetiapine - Citalopram # Other - DVT ppx: Lovenox - Diet: Dysphagia soft - code status: Full Code [] Alternative decision-maker Harsha Tejeda MD, PGY-1 [facility] #[id number] * Justin Amezcua MD - 11/20/2018 11:10 AM EDT MICU STAFF PROGRESS NOTE Critical Care Medicine Author: Justin Amezcua MD Patient seen and examined on critical care rounds. Brief HPI: Poppy Pino is a 58 y.o. woman with ARDS in the setting of recent Influenza A pneumonia. Active Problem and Important Diagnoses: ?? ARDS, moderate ?? Influenza A pneumonia ?? Multiple pulmonary granulomas, chronic ?? Acute on chronic hypoxemic respiratory failure (COPD on home O2) ?? Anemia (iron, B12, folate) ?? Hypernatremia, resolved ?? Elevated CK ASSESSMENT, MANAGEMENT, and DECISION MAKING: Stable oxygen needs. Continue ipratropium/albuterol (DuoNeb). She has been doing well from a respiratory status but is not yet near prior baseline. Mental status is improved, but not to baseline with somnolence. Stop quetiapine. Urine retention and Pena replaced. Follow up CK is down. No need to recheck. Passed swallow evaluation with pureed diet. BP down with lisinopril 10 mg daily. No pneumothorax on imaging, but there definitely was one briefly yesterday on her ultrasound exam after the CVC was removed (Had been place at the referring hospital). Not a clear indication for inhaled corticosteroids would hold for now. Can reconsider at time of discharge, but inhaled corticosteroids are risk factor for pneumonia. Okay for acute care, but prefer step down. EXAM: Physical Exam Constitutional: She appears lethargic. She is cooperative. Cardiovascular: Normal rate, regular rhythm and normal heart sounds. Pulmonary/Chest: Effort normal. She has wheezes. Neurological: She appears lethargic. GCS eye subscore is 4. GCS verbal subscore is 4. GCS motor subscore is 6. Skin: Skin is warm and dry. Normal capillary refill Last value Range last 24 hrs Temperature Temp: 36.8 ??C (98.3 ??F) Temp: [36.7 ??C (98.1 ??F)-37.1 ??C (98.8 ??F)] Heart Rate Heart Rate: 96 Heart Rate: [76-108] Blood Pressure BP: 127/69 BP: (115-178)/(69-109) Respiratory Rate Resp: 26 Resp: [16-31] SpO2 SpO2: 91 % SpO2: [91 %-100 %] Art BP BP (Arterial Line): 118/114 BP (Arterial Line): -- Last Ht 11/15/18 165.1 cm (5' 5) Last Wt 11/20/18 80.4 kg (177 lb 4 oz) Body mass index is 29.5 kg/m??. IS PATIENT CRITICALLY ILL ? Is there a high potential of sudden, clinically significant, or life threatening deterioration? No Is there a need for direct personal assessment and management to treat/prevent multiple vital organfailure/deterioration? No If this patient is not critically ill, I certify the patient requires continued in-patient hospitalization for: Needs frequent respiratory treatments. Mental status not adequate for self care. PATIENT IS CRITICALLY ILL WITH THESE DIAGNOSES BEING MANAGED BY CCS TEAM: ARDS I personally performed 30 minutes of aggregate critical care time exclusive of procedures and teaching. This includes time spent during direct patient evaluation and reassessment, interpreting diagnostic tests, directing life and/or organ supporting interventions and documentation on the unit. Justin Amezcua MD, PhD 11/20/2018 * Kelly Bermudez MD - 11/20/2018 7:06 AM EDT PGY-1 Progress Note Date: 11/20/18 Patient Information Name: Poppy Pino : 1960 PCP: KIARA Jesus PCP Admit Date: 11/13/2018 Attending: Coleman Cummings MD ID: Poppy Pino is a 58 year old female with past medical history of COPD on home O2 2-3L, IBS, diabetes mellitus, and hypertension presenting as transferred from OSH for ARDS in the setting of Influenza HI 2008 after recently completing a course of TamiFlu and steroids for influenza and COPD exacerbation. Hospital course complicated by recurrent fever of unrevealing infectious work-up, currently on Zosyn. Active Problems: ARDS (adult respiratory distress syndrome) Shock ANGE (acute kidney injury) Subjective/24h Events - patient extubated to NC - weaned off of precedex - pulled central line, air noted in bandage site concern for pneumo on u/s not on CXR, patient placed on non-rebreather, stable on repeat CXR - VSS no concern for tampanode - overnight re-started home lisinopril because patient hypertensive to 150-170s. - agitated with increased work of breathing overnight RR 30s ABG showed respiratory alkalosis, pena placed for PVR of 1L and symptoms resolved - given trazodone 50 mg for sleep. Objective Scheduled Meds: ??? traZODone 50 mg Oral Nightly ??? pantoprazole 40 mg Oral Daily ??? lisinopril 10 mg Oral Nightly ??? polyethylene glycol 17 g Oral BID ??? QUEtiapine 50 mg Oral Nightly ??? senna-docusate 1 tablet Oral BID ??? folic acid 1 mg Oral Daily ??? cyanocobalamin (vitamin B-12) 1,000 mcg Oral Daily ??? insulin lispro 1-4 Units Subcutaneous Q4H ROSEMARY ??? heparin (Porcine) 5,000 Units Subcutaneous Q8H ROSEMARY ??? ipratropium-albuterol 3 mL Nebulization Q4H ROSEMARY Continuous Infusions: ??? dexmedetomidine Stopped (11/19/18 1311) ??? sodium chloride 0.9% 10 mL/hr (11/19/18 0120) PRN Meds:.haloperidol lactate, acetaminophen, bisacodyl, Glucose 40% oral gel OR dextrose OR glucagon (human recombinant) Last value Range last 24 hrs Temperature Temp: 36.9 ??C (98.5 ??F) Temp: [36.7 ??C (98.1 ??F)-37.7 ??C (99.9 ??F)] Heart Rate Heart Rate: 98 Heart Rate: [70-108] Blood Pressure (arterial) .BP (Arterial Line): 118/114 BP (Arterial Line): -- Blood Pressure BP: 115/77 BP: (115-178)/(77-109) Respiratory Rate Resp: 24 Resp: [16-31] SpO2 SpO2: 100 % SpO2: [93 %-100 %] Ventilator Settings: VC 400 cc RR 18 FIO2 45 PEEP 8 ABG: ABG (Arterial Blood Gas) No results found for: PHART, PO2ART, [id number] Lines: Central Line L subclavian, L radial arterial line, PIV, pena, ETT, OG tube Intake/Output Summary (Last 24 hours) at 11/20/2018 0706 Last data filed at 11/20/2018 0600 Gross per 24 hour Intake 493.6 ml Output 2505 ml Net -2011.4 ml Patient Vitals for the past 168 hrs: Weight 11/20/18 0600 80.4 kg (177 lb 4 oz) 11/19/18 0024 81.8 kg (180 lb 5.4 oz) 11/18/18 0000 85.3 kg (188 lb 0.8 oz) 11/17/18 0000 83.9 kg (184 lb 15.5 oz) 11/16/18 0200 84 kg (185 lb 3 oz) 11/15/18 0600 83.2 kg (183 lb 6.8 oz) 11/13/18 2252 82.4 kg (181 lb 10.5 oz) Physical Exam GEN: extubated, fatigued appearing HEENT/neck: difficult to appreciate JVD Lungs: coarse breath sounds bilaterally Heart: S1 S2, no murmurs, rubs, or gallops Abdomen: soft, normal bowel sounds, no hepatosplenomegaly Extremities:+2 pitting edema to knees, present peripheral pulses Skin: warm and dry, no rashes Neuro: sedated and intubated ?? Recent Labs 11/20/18 0135 11/19/18 0345 11/18/18 0030 WBC 11.5* 9.6* 11.9* HGB 11.2* 9.6* 9.0* HCT 34.8* 30.1* 28.5* PLATELET 224 217 201 Recent Labs 11/20/18 0135 11/19/18 0345 11/18/18 2140 NA 135 136 140 K 3.8 4.3 4.5 CL 95* 95* 97* CO2 23 29 30 BUN 19* 24* 25* CREATININE 0.73 0.87 0.91 Recent Labs 11/13/18 2220 AST 30 ALT 16 ALKPHOS 89 BILITOT 0.2 Recent Labs 11/20/18 0135 11/19/18 0345 11/18/18 2140 11/18/18 0030 11/16/18 0225 11/13/18 2220 CALCIUM 10.1 9.2 9.3 8.6 < > 8.8 < > 8.6 MAGNESIUM -- -- 0.75 0.79 -- 1.02 -- 0.94 PHOS -- -- -- 3.8 -- -- -- 5.6* < > = values in this interval not displayed. Recent Labs 11/13/18 2220 INR 1.1 PT 12.5 PTT 24* Recent Labs 11/18/18 0030 11/17/18 1125 11/13/18 2220 CK 2,424* 2,493* 159 TROPONINT -- -- <0.01 Recent Labs 11/20/18 0337 11/19/18 2320 11/19/18 1955 11/19/18 1558 11/19/18 1148 11/19/18 0756 POCGLU 93 98 96 113 117 125 Imaging: CXR 11/20/18: IMPRESSION FINDINGS/IMPRESSION: Cardiomediastinal contours are magnified and unchanged. Supporting devices have been disconnected in the interval. Diffuse bilateral pulmonary parenchymal nodularities are again noted. Trace of atelectasis at both bases. No focal consolidation. No large pleural effusions. Overall, there is improved aeration of the lungs. No pneumothorax. Suspected radiographic evidence of trace of subcutaneous air in the soft tissues of the left. Repeat CXR: 11/19/18 IMPRESSION Stable examination, no pneumothorax. ?? Assessment & Plan Poppy Pino is a 58 year old female with past medical history of COPD on home O2 2-3L, IBS, diabetes mellitus, and hypertension presenting as transferred from OSH for ARDS in the setting of Influenza HI 2008 after recently completing a course of TamiFlu and steroids for influenza and COPD exacerbation. Hospital course complicated by recurrent fever of unrevealing infectious work-up, s/p 5 day course of Zosyn. ?? Patient is extubated and sating well on 2L NC. There was concern for a pneumothorax post pulling the central line, however serial x-rays are not concerning and the patient no longer has air in the bandage or palpable crepitus. Patient was agitated and had difficulty falling asleep last night and received several sedating medications that led to somnolence this morning. Will re-start her home gabapentin and citalopram, discontinue the seroquel and decrease her dose of trazodone to 12.5 nightly. Patient's states that she often naps during the day from 1pm to 5pm and also notes some concern in her taking chronic opioids for back pain and becoming addicted to them. Neurologic/Sedation/Analgesia: #agitation/anxiety - d/c haldol - night time Trazodone 12.5 mg - re-start home citalopram - re-start home gabapentin #chronic low back pain #chronic opioid use - lidocaine patches - consider BIT team consult ?? Cardiovascular: #HTN - re-start home lisinopril ?? Respiratory: #Bilateral opacities concerning for ARDS #COPD exacerbation #fevers - duonebs q4 hr - no steroids given that the patient had ARDS - s/p 5 days of Zosyn last day 11/18 #Air in bandage at site of central line #Concern for pneumothorax - no evidence of pneumonthorax on repeat CXR - no more air in bandage or crepitus in surrounding tissue - VSS ?? GastrointestinalNutrition: - Protonix Renal/Electrolytes: #Acute kidney injury - creatinine at baseline - avoid nephrotoxic agents #Urinary retention - pena in place - repeat voiding trial once patient off of sedatives for several days ?? Infectious Disease: #fevers #Concern for post-influenza pneumonia - blood cultures - NGTD - sputum cultures - GPRs likely corynebacterium - s/p 5 day course of zosyn for pseudomonal coverage in COPD exacerbation - respiratory PCR positive for influenza H1-2009 Hematology/Oncology: #normocytic anemia, likely mixed from B12, folate, and iron deficiency - iron 31 with iron sat 14, starting ferrous sulfate 325 mg daily - folate 14, starting folate 100 mg daily - vitamin B12, starting vitamin B12 1 mg daily ?? Endocrine: #hypothyroid - likely in the setting of infection - repeat outpatient thyroid studies ?? GI PPx: protonix DVT PPx: enoxaparin Lines: PIV Diet: Tube feeds Code Status: FULL CODE Disposition: tranfer to [facility] Kelly Bermudez MD Internal Medicine Resident, PGY-1 11/20/18 7:06 AM * Real Sanchez, FRAME COVERER - 11/20/2018 12:49 AM EDT Received Pt on 2L N/C. Pt was extubated prior shift with no incident. ABG 7.50/28/66/21/-1.4. Will continue to follow and provide inhaled medications. Esperanza Sanchez RRT * Maddie Winkler, RT - 11/19/2018 4:51 PM EDT Respiratory Mechanical Ventilation Note AMV (Yes) SBT (Yes) SPO2 > 92% Vent settings: Mode: Pressure Support/CPAP PS Above PEEP (cm H2O): (S) 5(end SBT) Set PEEP (cm H2O): 5 Set FiO2: 30 % Vent Measurements: Tidal Volume Measured Exp.: 505 Mean Airway Pressure (cm H2O): 7 Minute Ventilation Total Exhaled (L/min): 13.3 Resp: 21 SpO2: 100 % SBT Assessment Initial Vent Settings: PSV: PS above PEEP: O, PEEP 5, and FiO2 30% Initial Measurements: HR:71 BP: 146/85 RR: 20 VT: 434 MV: 9 SpO2: 95% ETCO2: 31 RSBI: 47 RASS (Dewitt Agitation-Sedation Scale): 1-->restless 30 minute measurements: HR: 86 BP: 153/86 RR: 22 VT: 751 MV: 12.2 SpO2: 93% ETCO2: 28 Airway: 7.0 mm ETT, 23 cm @ gum. AB11/18/2018 07:53 pH Art 7.49 (H) pCO2 Art 37 pO2 Art 64 (L) HCO3 Art 27.2 (H) BE Art 3.8 (H) O2HB Art 91.2 (L) COHB Art 0.2 METHB Art 0.3 FIO2 Art 30 PF Ratio Art 213 Lung sounds: Clear bilaterally Secretions: Appreciated a moderate amount of thin white secretions Assessment: Assumed care of patient orally intubated on PS: PS above PEEP 8, PEEP 5 and FiO2 30%. 0810: Transitioned patient to SBT (see data above). 0843: The patient passed a SBT. Transitioned the patient to PSV: PS above PEEP 5, PEEP 5, and FiO2 30%. 0859: Extubated patient to 2L NC (home oxygen requirement). The patient had a cuff leak prior to extubation. The patient had a dry, nonproductive cough post- extubation and stridor was not appreciated. Plan: Continue to provide the patient with inhaled medication. Encourage IS X10 breaths/hour. Encourage ambulation as tolerated. RT Joshua * Kelly Bermudez MD - 11/19/2018 9:55 AM EDT PGY-1 Progress Note Date: 11/19/18 Patient Information Name: Poppy Pino : 1960 PCP: KIARA Jesus PCP Admit Date: 11/13/2018 Attending: Coleman Cummings MD ID: Poppy Pino is a 58 year old female with past medical history of COPD on home O2 2-3L, IBS, diabetes mellitus, and hypertension presenting as transferred from OSH for ARDS in the setting of Influenza HI 2008 after recently completing a course of TamiFlu and steroids for influenza and COPD exacerbation. Hospital course complicated by recurrent fever of unrevealing infectious work-up, currently on Zosyn. Active Problems: ARDS (adult respiratory distress syndrome) Shock ANGE (acute kidney injury) Subjective/24h Events - Diuresed with Lasix 40mg IV, net negative 1.7L - awake and following commands this am - extubated this am, sating well on NC - off of fentanyl, weaning precedex Objective Scheduled Meds: ??? free water bolus 300 mL Per NG tube TID ??? polyethylene glycol 17 g Oral BID ??? QUEtiapine 50 mg Oral Nightly ??? shift total and Settings verification 1 each Intravenous 2 Times Daily - Shift Total ??? senna-docusate 1 tablet Oral BID ??? folic acid 1 mg Oral Daily ??? cyanocobalamin (vitamin B-12) 1,000 mcg Oral Daily ??? chlorhexidine 15 mL Oral BID ??? pantoprazole 40 mg Intravenous Daily ??? insulin lispro 1-4 Units Subcutaneous Q4H ROSEMARY ??? heparin (Porcine) 5,000 Units Subcutaneous Q8H ROSEMARY ??? ipratropium-albuterol 3 mL Nebulization Q4H ROSEMARY Continuous Infusions: ??? dexmedetomidine 1.4 mcg/kg/hr (11/19/18 0914) ??? fentaNYL Stopped (11/19/18 0854) ??? propofol Stopped (11/18/18 1700) ??? tube feeding diet 1,300 mL (11/18/18 1800) ??? sodium chloride 0.9% 10 mL/hr (11/19/18 0120) PRN Meds:.haloperidol lactate, acetaminophen, Assess AND [] fentaNYL AND fentaNYL AND fentaNYL AND shift total and Settings verification, bisacodyl, Glucose 40% oral gel ORdextrose OR glucagon (human recombinant) Last value Range last 24 hrs Temperature Temp: 37.7 ??C (99.9 ??F) Temp: [36.6 ??C (97.9 ??F)-37.8 ??C (100 ??F)] Heart Rate Heart Rate: 89 Heart Rate: [68-105] Blood Pressure (arterial) .BP (Arterial Line): 118/114 BP (Arterial Line): -- Blood Pressure BP: 147/88 BP: (105-171)/(64-88) Respiratory Rate Resp: 22 Resp: [12-58] SpO2 SpO2: 95 % SpO2: [91 %-98 %] Ventilator Settings: VC 400 cc RR 18 FIO2 45 PEEP 8 ABG: ABG (Arterial Blood Gas) No results found for: PHART, PO2ART, [id number] Lines: Central Line L subclavian, L radial arterial line, PIV, pena, ETT, OG tube Intake/Output Summary (Last 24 hours) at 11/19/2018 0955 Last data filed at 11/19/2018 0854 Gross per 24 hour Intake 3483.59 ml Output 5130 ml Net -1646.41 ml Patient Vitals for the past 168 hrs: Weight 11/19/18 0024 81.8 kg (180 lb 5.4 oz) 11/18/18 0000 85.3 kg (188 lb 0.8 oz) 11/17/18 0000 83.9 kg (184 lb 15.5 oz) 11/16/18 0200 84 kg (185 lb 3 oz) 11/15/18 0600 83.2 kg (183 lb 6.8 oz) 11/13/18 2252 82.4 kg (181 lb 10.5 oz) Physical Exam GEN: intubated, mildly agitated HEENT/neck: difficult to appreciate JVD Lungs: coarse breath sounds bilaterally Heart: S1 S2, no murmurs, rubs, or gallops Abdomen: soft, normal bowel sounds, no hepatosplenomegaly Extremities:+2 pitting edema to knees, present peripheral pulses Skin: warm and dry, no rashes Neuro: sedated and intubated ?? Recent Labs 11/19/18 0345 11/18/18 0030 11/17/18 0125 WBC 9.6* 11.9* 9.5 HGB 9.6* 9.0* 8.3* HCT 30.1* 28.5* 26.4* PLATELET 217 201 201 Recent Labs 11/19/18 0345 11/18/18 2140 11/18/18 0030 NA 136 140 141 K 4.3 4.5 4.4 CL 95* 97* 104 CO2 29 30 28 BUN 24* 25* 26* CREATININE 0.87 0.91 0.74 Recent Labs 11/13/18 2220 AST 30 ALT 16 ALKPHOS 89 BILITOT 0.2 Recent Labs 11/19/18 0345 11/18/18 2140 11/18/18 0030 11/16/18 0225 11/13/18 2220 CALCIUM 9.2 9.3 8.6 < > 8.8 < > 8.6 MAGNESIUM -- 0.75 0.79 -- 1.02 -- 0.94 PHOS -- -- 3.8 -- -- -- 5.6* < > = values in this interval not displayed. Recent Labs 11/13/18 2220 INR 1.1 PT 12.5 PTT 24* Recent Labs 11/18/18 0030 11/17/18 1125 11/13/18 2220 CK 2,424* 2,493* 159 TROPONINT -- -- <0.01 Recent Labs 11/19/18 0756 11/19/18 0346 11/19/18 0015 11/18/18 1925 11/18/18 1530 11/18/18 1206 POCGLU 125 133 136 152 106 94 Imaging: CXR: Diffuse airspace and interstitial opacities; differential considerations include pneumonia (bacterial, atypical/mycoplasma, viral, pneumocystic), pulmonary edema, ARDS, pulmonary alveolar proteinosis, pulmonary hemorrhage, acute interstitial pneumonia, hypersensitivity or drug induced pneumonitis, among other possible etiologies. ?? Abdomen XR: OG tube tip projects over the fundus, although the side port projects over the apparently region of the gastric cardia; consider slight advancement. ?? Assessment & Plan Poppy Pino is a 58 year old female with past medical history of COPD on home O2 2-3L, IBS, diabetes mellitus, and hypertension presenting as transferred from OSH for ARDS in the setting of Influenza HI 2008 after recently completing a course of TamiFlu and steroids for influenza and COPD exacerbation. Hospital course complicated by recurrent fever of unrevealing infectious work-up, currently on Zosyn. ?? Overall patient is doing well, she was awake and following commands this morning and was successfully extubated to nasal cannula. As she is no longer intubated we will wean her precedex, decrease he dose of haldol, and discontinue her seroquel. Will pull her central line and discontinue her pena. As she will be taking PO will discontinue her free water boluses. Neurologic/Sedation/Analgesia: #Sedated for mechanical ventilation - wean precedex - decrease dose of haldol ?? Cardiovascular: #Hypotension secondary to sedation - resolved ?? #Volume overload - pro BNP 2920 - negative 1.7 L yesterday - decreased edema on exam - follow up I/O ?? Respiratory: #Bilateral opacities concerning for ARDS #COPD exacerbation #fevers - duonebs q4 hr - hold steroids in setting of influenza - s/p 5 days of Zosyn last day 11/18 ?? GastrointestinalNutrition: - Protonix - NPO pending speech and swallow eval Renal/Electrolytes: Acute kidney injury - creatinine baseline - avoid nephrotoxic agents ?? Infectious Disease: #fevers #Concern for post-influenza pneumonia - f/up blood cultures - NGTD - f/up sputum cultures - NGTD, GPRs likely corynebacterium - zosyn for pseudomonal coverage in COPD exacerbation day 12/14 - respiratory PCR positive for influenza H1-2008 - f/up blood cx -NGTD Hematology/Oncology: #normocytic anemia, likely mixed from B12, folate, and iron deficiency - iron 31 with iron sat 14, starting ferrous sulfate 325 mg daily - folate 14, starting folate 100 mg daily - vitamin B12, starting vitamin B12 1 mg daily ?? Endocrine: #hypothyroid - likely in the setting of infection ?? GI PPx: protonix DVT PPx: enoxaparin Lines: PIV Diet: Tube feeds Code Status: FULL CODE Disposition: ICU Kelly Bermudez MD Internal Medicine Resident, PGY-1 11/19/18 9:55 AM * Justin Amezcua MD - 11/19/2018 9:54 AM EDT MICU STAFF PROGRESS NOTE Critical Care Medicine Author: Justin Amezcua MD Patient seen and examined on critical care rounds. Brief HPI: Poppy Pino is a 58 y.o. woman with ARDS in the setting of recent Influenza A pneumonia. Active Problem and Important Diagnoses: ?? ARDS, moderate ?? Acute on chronic hypoxemic respiratory failure (COPD on home O2) ?? Anemia (iron, B12, folate) ?? Hypernatremia, resolved ?? Elevated CK ASSESSMENT, MANAGEMENT, and DECISION MAKING: Good improvements with change in sedation strategy. Passed SBT, extubated on rounds. Good saturations on 2 LPM NC oxygen. NSVT overnight. Magnesium replaced. Will follow. If continues will start beta-yulia. Remains on dexmedetomidine 1.0, will wean. Can stop free water, hypernatremia is resolved. Discontinue Pena. Discontinue central venous catheter. Blood pressure okay if continues to climb, can restart lisinopril. ADDENDUM: When the left subclavian CVC placed before transfer here was removed the reassessing rapidly filled with air and there were new subcutaneous crepitance. On ultrasound there was no apical lung sliding, but on chest radiograph there was no a convincing pneumothorax. Suspect rapid resolution. Will obtain a follow up chest radiograph in about 4 hours. EXAM: Physical Exam Constitutional: She appears lethargic. She is cooperative. Cardiovascular: Normal rate, regular rhythm and normal heart sounds. Pulmonary/Chest: Effort normal and breath sounds normal. Neurological: She appears lethargic. GCS eye subscore is 4. GCS verbal subscore is 4. GCS motor subscore is 6. Skin: Skin is warm and dry. Normal capillary refill Last value Range last 24 hrs Temperature Temp: 37.7 ??C (99.9 ??F) Temp: [36.6 ??C (97.9 ??F)-37.8 ??C (100 ??F)] Heart Rate Heart Rate: 89 Heart Rate: [68-105] Blood Pressure BP: 147/88 BP: (105-171)/(64-88) Respiratory Rate Resp: 22 Resp: [12-58] SpO2 SpO2: 95 % SpO2: [91 %-98 %] Art BP BP (Arterial Line): 118/114 BP (Arterial Line): -- Last Ht 11/15/18 165.1 cm (5' 5) Last Wt 11/19/18 81.8 kg (180 lb 5.4 oz) Body mass index is 30.01 kg/m??. IS PATIENT CRITICALLY ILL ? Is there a high potential of sudden, clinically significant, or life threatening deterioration? Yes Is there a need for direct personal assessment and management to treat/prevent multiple vital organfailure/deterioration? Yes If this patient is not critically ill, I certify the patient requires continued in-patient hospitalization for: Not applicable (N/A) PATIENT IS CRITICALLY ILL WITH THESE DIAGNOSES BEING MANAGED BY CCS TEAM: ARDS I personally performed 50 minutes of aggregate critical care time exclusive of procedures and teaching. This includes time spent during direct patient evaluation and reassessment, interpreting diagnostic tests, directing life and/or organ supporting interventions and documentation on the unit. Justin Amezcua MD, PhD 11/19/2018 * Erika Hernandez RN - 11/19/2018 4:32 AM EDT Pt initiated in SBT * Real Sanchez RRT - 11/18/2018 10:42 PM EDT AMV Protocol: Yes SBT Protocol: Yes Vent Settings: Servo I Ventilator Mode: PS/CPAP PEEP Set: 5 FiO2: 30 % PSV: 8 Ventilator Measurements: Resp: 22 Vt Spontaneous: 438 Ve: 8.9 SpO2: 93 % EtCO2: 32 mmHg Airway: 7.0 @ 23 cm at the Gum. Skin Integrity: WDL Nebulized Medications: Albuterol & Ipratroprium Q4 Breath Sounds: Clear Secretions: scant amount of clear white secretions Assessment / Events / Plan of the Day: Received Pt on PSV 8/8 30%. Weaned Pt to 8/5 30% Pt maintaining sats above 92%. 0357 Attempted to try Pt on SBT, however Pt became agitated needing more sedation to calm Pt. Will continue to wean as tolerated and per AMV and SBT protocol. Real Sanchez RRT * Maddie Winkler RT - 11/18/2018 5:26 PM EDT AMV Protocol: Yes SBT Protocol: No SBT: Not performed/Excluded Vent Settings: Servo I Ventilator Mode: PS/CPAP PEEP Set: 8 FiO2: 30 % PSV: 8 Ventilator Measurements: Resp: 12 Vt Spontaneous: 635 Ve: 9.8 SpO2: 98 % EtCO2: 33 mmHg Airway: 7.0 @ 23 cm at the Gum. Skin Integrity: WDL Nebulized Medications: Albuterol & Ipratroprium Q4 Breath Sounds: Clear bilaterally Secretions: Appreciate a small amount of thin clear/white secretions Assessment / Events / Plan of the Day: Assessment: Assumed care of patient orally intubated on PSV: PS above PEEP 10, PEEP 10 and FiO2 30%. 1140: Titrated FiO2 to 25% per SpO2. 1558: Titrated PEEP to 8 and increased FiO2 to 30%. Plan: Maintain mechanical ventilation per AMV protocol. Continue to provide inhaled medication. RT Joshua * Kelly Bermudez MD - 11/18/2018 11:38 AM EDT PGY-1 Progress Note Date: 11/18/18 Patient Information Name: Poppy Pino : 1960 PCP: KIARA Jesus PCP Admit Date: 11/13/2018 Attending: Coleman Cummings MD ID: Poppy Pino is a 58 year old female with past medical history of COPD on home O2 2-3L, IBS, diabetes mellitus, and hypertension presenting as transferred from OSH for ARDS in the setting of Influenza HI 2008 after recently completing a course of TamiFlu and steroids for influenza and COPD exacerbation. Hospital course complicated by recurrent fever of unrevealing infectious work-up, currently on Zosyn. Active Problems: ARDS (adult respiratory distress syndrome) Shock ANGE (acute kidney injury) Subjective/24h Events - discontinued versed - BAL sputum culture and other infectious work-up unremarkable - discontinued Bicarb and added free water boluses for hypernatremia - agitated overnight requiring increase in propofol dose Objective Scheduled Meds: ??? shift total and Settings verification 1 each Intravenous 2 Times Daily - Shift Total ??? polyethylene glycol 17 g Oral Daily ??? senna-docusate 1 tablet Oral BID ??? folic acid 1 mg Oral Daily ??? cyanocobalamin (vitamin B-12) 1,000 mcg Oral Daily ??? chlorhexidine 15 mL Oral BID ??? white petrolatum-mineral oil 1 each Both Eyes BID ??? pantoprazole 40 mg Intravenous Daily ??? insulin lispro 1-4 Units Subcutaneous Q4H ROSEMARY ??? heparin (Porcine) 5,000 Units Subcutaneous Q8H ROSEMARY ??? ipratropium-albuterol 3 mL Nebulization Q4H ROSEMARY ??? piperacillin-tazobactam 3.375 g Intravenous Q8H Continuous Infusions: ??? fentaNYL 200 mcg/hr (11/18/18 1000) ??? propofol 35 mcg/kg/min (11/18/18 1109) ??? tube feeding diet 1,300 mL (11/18/18 1000) ??? sodium chloride 0.9% 10 mL/hr (11/18/18 1000) ??? NORepinephrine Stopped (11/17/18 191) PRN Meds:.acetaminophen, Assess AND [] fentaNYL AND fentaNYL AND fentaNYL AND shift total and Settings verification, bisacodyl, Glucose 40% oral gel OR dextrose OR glucagon (human recombinant) Last value Range last 24 hrs Temperature Temp: 37.4 ??C (99.3 ??F) Temp: [37.1 ??C (98.8 ??F)-38.1 ??C (100.6 ??F)] Heart Rate Heart Rate: 97 Heart Rate: [67-108] Blood Pressure (arterial) .BP (Arterial Line): 118/114 BP (Arterial Line): (100-189)/(56-114) Blood Pressure BP: 156/86 BP: (156)/(86) Respiratory Rate Resp: 28 Resp: [12-36] SpO2 SpO2: 96 % SpO2: [90 %-100 %] Ventilator Settings: VC 400 cc RR 18 FIO2 45 PEEP 8 ABG: ABG (Arterial Blood Gas) Lab Results Component Value Date pH Art 7.49 (H) 11/18/2018 pO2 Art 64 (L) 11/18/2018 pCO2 Art 37 11/18/2018 Lines: Central Line L subclavian, L radial arterial line, PIV, pena, ETT, OG tube Intake/Output Summary (Last 24 hours) at 11/18/2018 1139 Last data filed at 11/18/2018 1000 Gross per 24 hour Intake 3178.4 ml Output 2055 ml Net 1123.4 ml Patient Vitals for the past 168 hrs: Weight 11/18/18 0000 85.3 kg (188 lb 0.8 oz) 11/17/18 0000 83.9 kg (184 lb 15.5 oz) 11/16/18 0200 84 kg (185 lb 3 oz) 11/15/18 0600 83.2 kg (183 lb 6.8 oz) 11/13/18 2252 82.4 kg (181 lb 10.5 oz) Physical Exam GEN: intubated, mildly agitated HEENT/neck: difficult to appreciate JVD Lungs: coarse breath sounds bilaterally Heart: S1 S2, no murmurs, rubs, or gallops Abdomen: soft, normal bowel sounds, no hepatosplenomegaly Extremities:+2 pitting edema to knees, present peripheral pulses Skin: warm and dry, no rashes Neuro: sedated and intubated ?? Recent Labs 11/18/182911/17/1812411/16/18224 WBC 11.9* 9.5 10.8* HGB 9.0* 8.3* 8.2* HCT 28.5* 26.4* 26.4* PLATELET 201 201 187 Recent Labs 11/18/182911/17/1812411/16/18224 NA 141 148* 145 K 4.4 4.3 4.4 CL 104 110* 109* CO2 28 28 27 BUN 26* 30* 31* CREATININE 0.74 0.92 1.03 Recent Labs 11/13/18 2220 AST 30 ALT 16 ALKPHOS 89 BILITOT 0.2 Recent Labs 11/18/180 11/17/1812411/16/185 11/13/18 2220 CALCIUM 8.6 8.5 8.8 < > 8.6 MAGNESIUM 0.79 -- 1.02 -- 0.94 PHOS 3.8 -- -- -- 5.6* < > = values in this interval not displayed. Recent Labs 11/13/18 2220 INR 1.1 PT 12.5 PTT 24* Recent Labs 11/18/180 11/17/18 1125 11/13/18 2220 CK 2,424* 2,493* 159 TROPONINT -- -- <0.01 Recent Labs 11/18/18 0753 11/18/18 0407 11/18/18 0026 11/17/18200711/17/18 1608 11/17/18 1156 POCGLU 103 99 96 95 114 106 Imaging: CXR: Diffuse airspace and interstitial opacities; differential considerations include pneumonia (bacterial, atypical/mycoplasma, viral, pneumocystic), pulmonary edema, ARDS, pulmonary alveolar proteinosis, pulmonary hemorrhage, acute interstitial pneumonia, hypersensitivity or drug induced pneumonitis, among other possible etiologies. ?? Abdomen XR: OG tube tip projects over the fundus, although the side port projects over the apparently region of the gastric cardia; consider slight advancement. ?? Assessment & Plan Poppy Pino is a 58 year old female with past medical history of COPD on home O2 2-3L, IBS, diabetes mellitus, and hypertension presenting as transferred from OSH for ARDS in the setting of Influenza HI 2008 after recently completing a course of TamiFlu and steroids for influenza and COPD exacerbation. Hospital course complicated by recurrent fever of unrevealing infectious work-up, currently on Zosyn. ?? Patient is doing well on pressure support, however has been experiencing agitation as we are weaning sedation. Will aim for a DARYN of 0 to -1 will given prn fentanyl boluses and consider adding precedex to minimize agitation as we slowly have the patient wake up. Patient is net positive since admission and renal function has returned to baseline. Will diurese with 40 IV Lasix. Hypernatremia has normalized will decreased free water boluses to 300cc TID to avoid making her hypernatremic again. Neurologic/Sedation/Analgesia: #Sedated for mechanical ventilation - fentanyl prn boluses - titrate propofol as needed for sedation - consider precedex ?? Cardiovascular: #Hypotension secondary to sedation - norepinephrine gtt titrate to MAPS>65 ?? #Volume overload - pro BNP 2920, patient has edema on exam - Lasix 40mg IV - goal net negative 1L - Kdur 40 meq to avoid hypokalemia - follow up I/O ?? Respiratory: #Bilateral opacities concerning for ARDS #COPD exacerbation #fevers - duonebs q4 hr - hold steroids in setting of influenza - zosyn day 12/14 ?? GastrointestinalNutrition: - protonix - tube feeds - 300cc free water bolus q8h Renal/Electrolytes: Acute kidney injury - creatinine baseline - avoid nephrotoxic agents ?? Infectious Disease: #fevers #Concern for post-influenza pneumonia - f/up blood cultures - NGTD - f/up sputum cultures - NGTD - zosyn for pseudomonal coverage in COPD exacerbation day 12/14 - respiratory PCR positive for influenza H1-2009 - f/up blood cx -NGTD Hematology/Oncology: #normocytic anemia, likely mixed from B12, folate, and iron deficiency - iron 31 with iron sat 14, starting ferrous sulfate 325 mg daily - folate 14, starting folate 100 mg daily - vitamin B12, starting vitamin B12 1 mg daily ?? Endocrine: #hypothyroid - likely in the setting of infection ?? GI PPx: protonix DVT PPx: enoxaparin Lines: left subclavian central line, left radial arterial line Diet: Tube feeds Code Status: FULL CODE Disposition: ICU Kelly Bermudez MD Internal Medicine Resident, PGY-1 11/18/18 11:39 AM * Justin Amezcua MD - 11/18/2018 11:37 AM EDT MICU STAFF PROGRESS NOTE Critical Care Medicine Author: Justin Amezcua MD Patient seen and examined on critical care rounds. Brief HPI: Poppy Pino is a 58 y.o. woman with ARDS in the setting of recent Influenza A pneumonia. Active Problem and Important Diagnoses: ?? ARDS, moderate ?? Acute on chronic hypoxemic respiratory failure (COPD on home O2) ?? Anemia (iron, B12, folate) ?? Hypernatremia ?? Elevated CK ASSESSMENT, MANAGEMENT, and DECISION MAKING: Weaned over the pressure support and generally doing well. The mini-BAL with rare GPRs not felt to reflect infection. She has been afebrile. Will complete piperacillin-tazobactam as planned. Will continue to wean ventilatory support as possible, but mental status is a barrier to extubation. After agitation on lower dose of propofol will start dexmedetomidine. She has a good response to haldol can use as needed. Avoid benzodiazepines. If needing frequent fentanyl can try hydromorphone. Target RAAS 0 to -1. She is now off norepinephrine with lower propofol. Arterial line removed. On enteric feeds. Sodium is 41, can continue some free water to maintain good urine output. I do favor some mild diuresis today. EXAM: Physical Exam Constitutional: She is sedated and intubated. Minimally responsive Cardiovascular: Normal rate, regular rhythm and normal heart sounds. Pulmonary/Chest: Effort normal and breath sounds normal. She is intubated. Neurological: GCS eye subscore is 1. GCS motor subscore is 5. Skin: Skin is warm and dry. Normal capillary refill Last value Range last 24 hrs Temperature Temp: 37.4 ??C (99.3 ??F) Temp: [37.1 ??C (98.8 ??F)-38.1 ??C (100.6 ??F)] Heart Rate Heart Rate: 97 Heart Rate: [67-108] Blood Pressure BP: 156/86 BP: (156)/(86) Respiratory Rate Resp: 28 Resp: [12-36] SpO2 SpO2: 96 % SpO2: [90 %-100 %] Art BP BP (Arterial Line): 118/114 BP (Arterial Line): (100-189)/(56-114) Last Ht 11/15/18 165.1 cm (5' 5) Last Wt 11/18/18 85.3 kg (188 lb 0.8 oz) Body mass index is 31.29 kg/m??. IS PATIENT CRITICALLY ILL ? Is there a high potential of sudden, clinically significant, or life threatening deterioration? Yes Is there a need for direct personal assessment and management to treat/prevent multiple vital organfailure/deterioration? Yes If this patient is not critically ill, I certify the patient requires continued in-patient hospitalization for: Not applicable (N/A) PATIENT IS CRITICALLY ILL WITH THESE DIAGNOSES BEING MANAGED BY [facility] TEAM: ARDS I personally performed 40 minutes of aggregate critical care time exclusive of procedures and teaching. This includes time spent during direct patient evaluation and reassessment, interpreting diagnostic tests, directing life and/or organ supporting interventions and documentation on the unit. Justin Amezcua MD, PhD 11/18/2018 * Real Sanchez RRT - 11/17/2018 9:27 PM EDT AMV Protocol: Yes SBT Protocol: No Vent Settings: Servo I Ventilator Mode: PS/CPAP PEEP Set: 10 FiO2: 30 % PSV: 10 Ventilator Measurements: Resp: 22 Vt Spontaneous: 438 Ve: 11.1 SpO2: 95 % EtCO2: 39 mmHg Airway: 7.0 @ 23 cm at the Teeth. Skin Integrity: WDL Nebulized Medications: Albuterol & Ipratroprium Q4 Breath Sounds: Diminished Secretions: Small amount white frothy Assessment / Events / Plan of the Day: Received Pt on VCV 400 18 10 40%. Sedation was lightened and Pt became desynchronous with vent, placed Pt on PSV . Pt tolerating settings well. Will continue to follow and wean as tolerated and per AMV protocol. Real Sanchez RRT * Marcos Mcgraw RCP - 11/17/2018 6:31 PM EDT Brief HPI: Poppy Pino is a 58 y.o. woman with ARDS in the setting of recent Influenza A pneumonia. ?? Active Problem and Important Diagnoses: ?? ARDS, moderate ?? Acute on chronic hypoxemic respiratory failure (COPD on home O2) ?? Anemia (iron, B12, folate) ?? Hypernatremia ?? Elevated CK AMV Protocol: Yes SBT Protocol: No SBT: Not performed/Excluded: Predefined weaning plan Vent Settings: Servo I Ventilator Mode: VC Tidal Volume Set: 400 Resp Rate Set: 18 PEEP Set: 10 FiO2: 40 % Ventilator Measurements: Resp: 21 Vt Exhaled: 423 PIP: 39 MAP: 13.3 Plateau Press: 18 Ve: 9 PEEP: 8 cmH20 SpO2: 100 % EtCO2:36 mmHg Airway: 7.0 @ 23 cm at the Teeth. Skin Integrity: WDL Nebulized Medications: Albuterol & Ipratroprium Breath Sounds: Adria and decreased, occasional rhonchi improves with sx and nebulizers. Secretions: BAL performed right side directed Assessment / Events / Plan of the Day: The pt has been stable on the current settings overall the decision to increase her peep to [id number] at 1030 based on her CXR and her P/F ratio of 177 down some from the day before. The pt is overall stable on these settings and no plan for SBT at this time. Marcos Mcgraw RCP * Justin Amezcua MD - 11/17/2018 10:02 AM EDT MICU STAFF PROGRESS NOTE Critical Care Medicine Author: Justin Amezcua MD Patient seen and examined on critical care rounds. Brief HPI: Poppy Pino is a 58 y.o. woman with ARDS in the setting of recent Influenza A pneumonia. Active Problem and Important Diagnoses: ?? ARDS, moderate ?? Acute on chronic hypoxemic respiratory failure (COPD on home O2) ?? Anemia (iron, B12, folate) ?? Hypernatremia ?? Elevated CK ASSESSMENT, MANAGEMENT, and DECISION MAKING: Mental status has been a barrier. Will stop midazolam. Continue propofol. Target RASS -3, but less to -1 if tolerating ventilation. Had ventilator dyssynchrony improved with shortened iTime. Lung mechanics are very good. Culture without growth. Given fevers will do mini BAL with increased secretions. The chest radiograph is changed if anything. Can target higher PEEP with lower P/f today. Favor lower tidal volume, but can continue 7 mL/kg now. EXAM: Physical Exam Constitutional: She is sedated and intubated. Minimally responsive Cardiovascular: Normal rate, regular rhythm and normal heart sounds. Pulmonary/Chest: Effort normal and breath sounds normal. She is intubated. Neurological: GCS eye subscore is 1. GCS motor subscore is 5. Skin: Skin is warm and dry. Normal capillary refill Last value Range last 24 hrs Temperature Temp: (!) 38.1 ??C (100.6 ??F) Temp: [36.9 ??C (98.4 ??F)-38.1 ??C (100.6 ??F)] Heart Rate Heart Rate: 82 Heart Rate: [79-114] Blood Pressure BP: 108/67 BP: -- Respiratory Rate Resp: 19 Resp: [18-40] SpO2 SpO2: 95 % SpO2: [90 %-99 %] Art BP BP (Arterial Line): 101/54 BP (Arterial Line): (83-188)/(44-110) Last Ht 11/15/18 165.1 cm (5' 5) Last Wt 11/17/18 83.9 kg (184 lb 15.5 oz) Body mass index is 30.78 kg/m??. IS PATIENT CRITICALLY ILL ? Is there a high potential of sudden, clinically significant, or life threatening deterioration? Yes Is there a need for direct personal assessment and management to treat/prevent multiple vital organfailure/deterioration? Yes If this patient is not critically ill, I certify the patient requires continued in-patient hospitalization for: Not applicable (N/A) PATIENT IS CRITICALLY ILL WITH THESE DIAGNOSES BEING MANAGED BY [facility]CS TEAM: ARDS I personally performed 38 minutes of aggregate critical care time exclusive of procedures and teaching. This includes time spent during direct patient evaluation and reassessment, interpreting diagnostic tests, directing life and/or organ supporting interventions and documentation on the unit. Justin Amezcua MD, PhD 11/17/2018 * Sherice Garcia, RD - 11/17/2018 9:35 AM EDT Nutrition Services Tube Feeding Note Poppy Pino is a 58 y.o. female with Active Problems: ARDS (adult respiratory distress syndrome) Shock ANGE (acute kidney injury) Estimated body mass index is 30.78 kg/m?? as calculated from the following: Height as of this encounter: 165.1 cm (5' 5). Weight as of this encounter: 83.9 kg (184 lb 15.5 oz). Admit Weight: 82.4 kg BMI: 32.18 [place] Body Weight: 56.7 kg I/O last 1 completed shift: In: 1488 [I.V.:610; Other:115; NG/GT:763] Out: 520 [Urine:520] TF order: Peptamen 1.5 at 40 ml per hour to provide volume of 800 ml per day. (This rate is calculated to compensate for unplanned time off feedings due to potential procedures, etc.). Enteral Access: NGT Tube feedings provide-> 1200 kcal, 54 gm protein, 617 ml water from formula, 80% of RDI's for vitamins and minerals. Last BM: None recorded since admission - received suppository today in addition to bowel meds per RN Continuous Infusions: ??? fentaNYL 200 mcg/hr (11/17/18 1100) ??? propofol 40 mcg/kg/min (11/17/18 1135) ??? tube feeding diet 960 mL (11/16/18 1800) ??? sodium chloride 0.9% 10 mL/hr (11/16/18 1800) ??? NORepinephrine 1 mcg/min (11/17/18 0658) Scheduled Medications: ??? free water bolus 300 mL Per NG tube 4 Times Daily ??? shift total and Settings verification 1 each Intravenous 2 Times Daily - Shift Total ??? polyethylene glycol 17 g Oral Daily ??? senna-docusate 1 tablet Oral BID ??? folic acid 1 mg Oral Daily ??? cyanocobalamin (vitamin B-12) 1,000 mcg Oral Daily ??? chlorhexidine 15 mL Oral BID ??? white petrolatum-mineral oil 1 each Both Eyes BID ??? pantoprazole 40 mg Intravenous Daily ??? insulin lispro 1-4 Units Subcutaneous Q4H ROSEMARY ??? heparin (Porcine) 5,000 Units Subcutaneous Q8H ROSEMARY ??? ipratropium-albuterol 3 mL Nebulization Q4H ROSEMARY ??? piperacillin-tazobactam 3.375 g Intravenous Q8H Lab Results Component Value Date NA 148 (H) 11/17/2018 K 4.3 11/17/2018 CL 110 (H) 11/17/2018 CO2 28 11/17/2018 BUN 30 (H) 11/17/2018 CREATININE 0.92 11/17/2018 GLUCOSE 112 11/17/2018 MAGNESIUM 1.02 11/16/2018 CALCIUM 8.5 11/17/2018 PHOS 5.6 (H) 11/13/2018 AST 30 11/13/2018 ALT 16 11/13/2018 ALKPHOS 89 11/13/2018 BILITOT 0.2 11/13/2018 BILIDIR 0.1 05/26/2012 *noted free water increased today for hypernatremia Nutrition needs assessed at: 1320 -1650 Calories (hypocaloric high protein) 100-125 gm Protein (2060 calories for maintenance) Assessment/Recommendations: Average tube feeding intake of 445 ml over the last 2 days met 55% of ordered goal. Of note, current TF order of Peptamen 1.5 at 40 ml/hr does not meet nutrition needs and was not recommended by Nutrition Services. Now on propofol which is providing ~ 528 calories from lipid daily. Suggest change tube feedings to Peptamen Intense VHP at goal rate of 65 ml per hour to provide volume of 1300 ml per day. (This rate is calculated to compensate for unplanned time off feedings due topotential procedures, etc.). This will provide 1300 kcal, 120 gm protein, 1092 ml water from formula, 87% of RDI's for vitamins and minerals. Monitor pt closely while on TF and vasopressors - at increased risk of gastrointestinal hypoperfusion and ischemia - suggest hold tube feedings for increasing abdominal distention, vomiting, ileus, or worsening hypotension. Suggest add magnesium and phosphorus to next lab draw and check daily thereafter until levels are stable. Suggest check triglyceride level twice weekly while on Propofol. Monitor weight. Discussed with blue team in interdisciplinary ICU rounds. Nutrition to follow. VICKIE CAVAZOS Pager [phone] * Kelly Bermudez MD - 11/17/2018 6:47 AM EDT PGY-1 Progress Note Date: 11/17/18 Patient Information Name: Poppy Pino : 1960 PCP: KIARA Jesus PCP Admit Date: 11/13/2018 Attending: Coleman Cummings MD ID: Poppy Pino is a 58 year old female with past medical history of COPD on home O2 2-3L, IBS, diabetes mellitus, and hypertension presenting as transferred from OSH for ARDS in the setting of Influenza HI 2008 after recently completing a course of TamiFlu and steroids for influenza and COPD exacerbation. Hospital course complicated by recurrent fever of unrevealing infectious work-up, currently on Zosyn. Active Problems: ARDS (adult respiratory distress syndrome) Shock ANGE (acute kidney injury) Subjective/24h Events - weaning down midazolam, patient became more agitated overnight with breath stacking requiring several boluses of fentanyl and propofol and increased infusion rate of propofol - CXR with interval improvement in pulmonary edema - PEEP decreased to 8 - urine had sediment, but appropriate output with flushing of pena - febrile this am to 38.4 - continues to have copious secretions, sputum cultures negative to date Objective Scheduled Meds: ??? shift total and Settings verification Intravenous 2 Times Daily - Shift Total ??? polyethylene glycol 17 g Oral Daily ??? senna-docusate 1 tablet Oral BID ??? shift total and Settings verification 1 each Intravenous 2 Times Daily - Shift Total ??? folic acid 1 mg Oral Daily ??? cyanocobalamin (vitamin B-12) 1,000 mcg Oral Daily ??? chlorhexidine 15 mL Oral BID ??? white petrolatum-mineral oil 1 each Both Eyes BID ??? sodium bicarbonate 650 mg Per NG tube Q8H ??? pantoprazole 40 mg Intravenous Daily ??? insulin lispro 1-4 Units Subcutaneous Q4H ROSEMARY ??? heparin (Porcine) 5,000 Units Subcutaneous Q8H ROSEMARY ??? ipratropium-albuterol 3 mL Nebulization Q4H ROSEMARY ??? piperacillin-tazobactam 3.375 g Intravenous Q8H Continuous Infusions: ??? fentaNYL 200 mcg/hr (11/17/18 0600) ??? tube feeding diet 960 mL (11/16/18 1800) ??? propofol 40 mcg/kg/min (11/17/18 0637) ??? midazolam in normal saline 3 mg/hr (11/17/18 0600) ??? sodium chloride 0.9% 10 mL/hr (11/16/18 1800) ??? NORepinephrine 2 mcg/min (11/17/18 0638) PRN Meds:.bisacodyl, Assess AND [] fentaNYL AND fentaNYL AND fentaNYL AND shift total and Settings verification, Glucose 40% oral gel OR dextrose OR glucagon (human recombinant) Last value Range last 24 hrs Temperature Temp: 37.3 ??C (99.1 ??F) Temp: [36.9 ??C (98.4 ??F)-37.6 ??C (99.7 ??F)] Heart Rate Heart Rate: 88 Heart Rate: [76-114] Blood Pressure (arterial) .BP (Arterial Line): 85/47 BP (Arterial Line): (83-188)/(44-110) Blood Pressure BP: 108/67 BP: -- Respiratory Rate Resp: 18 Resp: [18-40] SpO2 SpO2: 95 % SpO2: [90 %-99 %] Ventilator Settings: VC 400 cc RR 18 FIO2 45 PEEP 8 ABG: ABG (Arterial Blood Gas) Lab Results Component Value Date pH Art 7.45 11/16/2018 pO2 Art 70 (L) 11/16/2018 pCO2 Art 38 11/16/2018 Lines: Central Line L subclavian, L radial arterial line, PIV, pena, ETT, OG tube Intake/Output Summary (Last 24 hours) at 11/17/2018 0647 Last data filed at 11/17/2018 0600 Gross per 24 hour Intake 2966 ml Output 870 ml Net 2096 ml Patient Vitals for the past 168 hrs: Weight 11/17/18 0000 83.9 kg (184 lb 15.5 oz) 11/16/18 0200 84 kg (185 lb 3 oz) 11/15/18 0600 83.2 kg (183 lb 6.8 oz) 11/13/18 2252 82.4 kg (181 lb 10.5 oz) Physical Exam GEN: intubated, sedated HEENT/neck: difficult to appreciate JVD Lungs: coarse breath sounds bilaterally Heart: S1 S2, no murmurs, rubs, or gallops Abdomen: soft, normal bowel sounds, no hepatosplenomegaly Extremities:+2 pitting edema to knees, present peripheral pulses Skin: warm and dry, no rashes Neuro: sedated and intubated ?? Recent Labs 11/17/18 0125 11/16/18 0225 11/15/18 0035 WBC 9.5 10.8* 11.5* HGB 8.3* 8.2* 8.9* HCT 26.4* 26.4* 29.6* PLATELET 201 187 190 Recent Labs 11/17/18 0125 11/16/18 0225 11/15/18 0035 NA 148* 145 144 K 4.3 4.4 4.8 CL 110* 109* 107 CO2 28 27 25 BUN 30* 31* 30* CREATININE 0.92 1.03 1.45* Recent Labs 11/13/18 2220 AST 30 ALT 16 ALKPHOS 89 BILITOT 0.2 Recent Labs 11/17/18 0125 11/16/18 0225 11/15/18 0035 11/13/18 2220 CALCIUM 8.5 8.8 8.7 < > 8.6 MAGNESIUM -- 1.02 -- -- 0.94 PHOS -- -- -- -- 5.6* < > = values in this interval not displayed. Recent Labs 11/13/18 2220 INR 1.1 PT 12.5 PTT 24* Recent Labs 11/13/18 2220 CK 159 TROPONINT <0.01 Recent Labs 11/17/18 0357 11/17/18 0016 11/16/18 2034 11/16/18 1553 11/16/18 1207 11/16/18 1023 POCGLU 115 111 133 115 113 114 Imaging: CXR: Diffuse airspace and interstitial opacities; differential considerations include pneumonia (bacterial, atypical/mycoplasma, viral, pneumocystic), pulmonary edema, ARDS, pulmonary alveolar proteinosis, pulmonary hemorrhage, acute interstitial pneumonia, hypersensitivity or drug induced pneumonitis, among other possible etiologies. ?? Abdomen XR: OG tube tip projects over the fundus, although the side port projects over the apparently region of the gastric cardia; consider slight advancement. ?? Assessment & Plan Poppy Pino is a 58 year old female with past medical history of COPD on home O2 2-3L, IBS, diabetes mellitus, and hypertension presenting as transferred from OSH for ARDS in the setting of Influenza HI 2008 after recently completing a course of TamiFlu and steroids for influenza and COPD exacerbation. Hospital course complicated by recurrent fever of unrevealing infectious work-up, currently on Zosyn. ?? ABG this am shows a PF ratio of 150 down from 200. Will increase PEEP in an effort to improve pO2. Worsening respiratory status in the setting of a new fever is concerning for an infection. Patient has been on Zosyn since admission and cultures are negative to date. Will send BAL cultures for more complete evaluation of sputum especially as patient has had a large amount of secretions. Will obtain blood cultures and repeat CXR for infectious work-up. Holding off on urine cultures as patient hasa pena in place, which is likely colonized. Will discontinue versed and titrate propofol for sedation. After receiving bicarbonate tablets for 3 days she is becoming more alkalotic so will discontinue the bicarbonate tablets. Sodium this morning is 148 equivalent to a 2.4L free water deficit. Will addfree water boluses equaling 1.2L (300cc q6h) to replace. Neurologic/Sedation/Analgesia: #Sedated for mechanical ventilation - d/c versed - fentanyl gtt - 200 mcg - titrate propofol as needed for sedation ?? Cardiovascular: #Hypotension secondary to sedation - norepinephrine gtt titrate to MAPS>65 ?? #Volume overload - pro BNP 2920, patient has edema on exam - hold off diuresis particularly given alkalosis - follow up I/O ?? Respiratory: #Bilateral opacities concerning for ARDS #COPD exacerbation #fevers - duonebs q4 hr - hold steroids in setting of influenza - BAL sputum culture - Blood cultures - CXR - continue zosyn ?? GastrointestinalNutrition: - protonix - tube feeds - 300cc free water bolus q6h Renal/Electrolytes: Acute kidney injury - Cr improving 1.3 --> 0.98 - avoid nephrotoxic agents ?? Infectious Disease: #fevers #Concern for post-influenza pneumonia - f/up blood cultures - NGTD - f/up sputum cultures - NGTD - zosyn for pseudomonal coverage in COPD exacerbation - respiratory PCR positive for influenza H1-2009 - BAL sputum culture - Blood cultures - CXR - continue zosyn ?? Hematology/Oncology: #normocytic anemia, likely mixed from B12, folate, and iron deficiency - iron 31 with iron sat 14, starting ferrous sulfate 325 mg daily - folate 14, starting folate 100 mg daily - vitamin B12, starting vitamin B12 1 mg daily ?? Endocrine: #hypothyroid - likely in the setting of infection ?? GI PPx: protonix DVT PPx: enoxaparin Lines: left subclavian central line, left radial arterial line Diet: Tube feeds Code Status: FULL CODE Disposition: ICU Kelly Bermudez MD Internal Medicine Resident, PGY-1 11/17/18 6:47 AM * Kim Sams, FRAME COVERER - 11/16/2018 8:37 PM EDT AMV Protocol: Yes SBT Protocol: No Vent Settings: Servo I Ventilator Mode: VC Tidal Volume Set: 400 Resp Rate Set: 18 PEEP Set: 8 FiO2: (S) 40 % Ventilator Measurements: Resp: 20 Vt Exhaled: 400 PIP: 27 MAP: 11 Plateau Press: 15 Ve: 8 PEEP: 9 cmH20 SpO2: 93 % EtCO2: 36mmHg Airway: 7.0 @ 23 cm at the Teeth. Skin Integrity: WDL Nebulized Medications: Albuterol & Ipratroprium Breath Sounds: Rhonchi Secretions: Moderate to large thick zuniga Assessment / Events / Plan: (0330) Patient had desaturation episode to 88% . FIO2 increased to 45% SPO2 increased to 93%. Pt rested on settings overnight-continue to wean per AMV protocol. 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 Data AMV Protocol: Yes SBT Protocol: Yes SBT: Not performed/Excluded: PEEP greater than 10 cmH2O Vent Settings: Servo I Ventilator Mode: VC Tidal Volume Set: 400 Resp Rate Set: 18 PEEP Set: (S) 8 FiO2: 35 % Ventilator Measurements: Resp: 22 Vt Exhaled: 474 PIP: 29 MAP: 11.9 Plateau Press: 17 MVe: 7.7 PEEP: 8 cmH20 SpO2: 94 % EtCO2: 36 mmHg Airway: 7.0 @ 23 cm at the Teeth. Skin Integrity: WDL Scheduled Meds: Nebulized Medications: Albuterol & Ipratroprium The pt had an overall good day on MV. Today her rate and her Peep were weaned from RR of 22 and a peep of 10. The pt has adria BS with improving CXR. She is on Nebulizer therapy and tolerates this well. She has been sxd for small to moderate thin secretions and at times has bit down on the Ett however this is not the norm. Will hold here for the moment and discuss with the team the plan if further weaning is indicated. * Coleman Cummings MD - 11/16/2018 11:12 AM EDT Images from the original note were not included. MICU STAFF PROGRESS NOTE Critical Care / Pulmonary / Internal Medicine Coleman Cummings MD [facility] Hospital Course 58 y.o. female w/ PMH of COPD on home O2 2-3L, IBS, diabetes mellitus, and HTN who presented as a transfer from [facility] for ARDS in the setting of recent influenza. She was intubated and transferred here 11/13/18. PaO2: FiO2 about 150 initially and exhibiting poor compliance out of proportion to her depressed oxygenation with chest CT showing widespread interstitial and alveolar opacities. Modest hemodynamic instability with a mild pressor requirement. Acute kidney injury that initially improved. Anelevated BNP that could reflect right ventricular strain. She was paralyzed and not initially proned. Improved 11/15/18 with PaO2:FiO2 170 and Ppl 21, thus paralytics stopped. Sedation breakthrough on Versed 8/hr so tapering off and using propofol given respiratory improvement. ASSESSMENT, MANAGEMENT, and DECISION MAKING: ?? ARDS-post influenzal. Better with Ppl 23 on higher TV and 0.35/10 peep ?? ? Post influenza bacterial pneumonia- broadly covered, empirically ?? Acute kidney injury-improved initially, with downturn today post diuresis ?? Underlying COPD reportedly on nocturnal oxygen-but FVC much greater than 50% of predicted.?Sleepdisordered breathing ?? Possible PFO- currently without an oxygenation problem. Uninterrupted VT E prophylaxis essential. Could consider bubble study down the road ?? Right heart strain related to diffuse lung disease Plan: ?? Rapidly decrease Versed as ineffective and she was on it briefly ?? Propofol for sedation ?? Continue Fentanyl for analgesia ?? Check ABG and CXR. If all favorable with stable PaO2:FiO2 dec PEEP to 8 ?? Continue low tidal volume though liberalized a bit ?? VTE prophylaxis with subcutaneous heparin ?? GI prophylaxis with pantoprazole ?? CODE STATUS: Full Patient seen and examined on critical care rounds. Active Problems: ARDS (adult respiratory distress syndrome) Shock ANGE (acute kidney injury) Overnight events: ?? Sedation switched to Propofol ?? Improved oxygenation and compliance ?? Improved hemodynamics ??? free water bolus 200 mL Per NG tube TID ??? polyethylene glycol 17 g Oral Daily ??? senna-docusate 1 tablet Oral BID ??? shift total and Settings verification 1 each Intravenous 2 Times Daily - Shift Total ??? folic acid 1 mg Oral Daily ??? cyanocobalamin (vitamin B-12) 1,000 mcg Oral Daily ??? chlorhexidine 15 mL Oral BID ??? white petrolatum-mineral oil 1 each Both Eyes BID ??? sodium bicarbonate 650 mg Per NG tube Q8H ??? pantoprazole 40 mg Intravenous Daily ??? insulin lispro 1-4 Units Subcutaneous Q4H ROSEMARY ??? heparin (Porcine) 5,000 Units Subcutaneous Q8H ROSEMARY ??? ipratropium-albuterol 3 mL Nebulization Q4H ROSEMARY ??? piperacillin-tazobactam 3.375 g Intravenous Q8H ??? fentaNYL 200 mcg/hr (11/16/18 1000) ??? tube feeding diet 960 mL (11/16/18 0938) ??? propofol 30 mcg/kg/min (11/16/18 0823) ??? midazolam in normal saline 3 mg/hr (11/16/18 1000) ??? sodium chloride 0.9% 10 mL/hr (11/14/18 1800) ??? NORepinephrine 2 mcg/min (11/16/18 0325) Exam: Last value Range last 24 hrs Temperature Temp: 37.5 ??C (99.5 ??F) Temp: [37.2 ??C (99 ??F)-37.8 ??C (100 ??F)] Heart Rate Heart Rate: 76 Heart Rate: [76-223] Blood Pressure BP: 108/67 BP: -- Respiratory Rate Resp: 22 Resp: [20-36] SpO2 SpO2: 97 % SpO2: [78 %-100 %] Art BP BP (Arterial Line): 111/60 BP (Arterial Line): (49-192)/(39-120) Intake/Output Summary (Last 24 hours) at 11/16/2018 1113 Last data filed at 11/16/2018 1000 Gross per 24 hour Intake 1562 ml Output 820 ml Net 742 ml PEx: Gen middle-age woman sedated, comfortably ventilated Skin No rash HEENT PERRL, OP clear without thrush LNs No AC/PC/Ax JOSEPH Chest coarse anterior breath sounds, without wheezes or crackles appreciated Cor Without MRG Abd Soft, NT, +BS, without organomegaly MS No active synovitis Ext No clubbing, trace edema Neuro Sedated Ventilator: Rate 22/400/35/10 Labs/studies: Recent Labs 11/16/1822411/15/183411/14/18 0850 WBC 10.8* 11.5* 15.2* HGB 8.2* 8.9* 9.3* HCT 26.4* 29.6* 31.2* PLATELET 187 190 247 NEUTROABS 6.82* 8.37* 12.67* Recent Labs 11/16/1822411/15/18 0035 11/14/18 0520 NA 145 144 143 K 4.4 4.8 4.9 CL 109* 107 108* CO2 27 25 23 BUN 31* 30* 24* CREATININE 1.03 1.45* 1.30* Recent Labs 11/13/18 2220 AST 30 ALT 16 ALKPHOS 89 BILITOT 0.2 Recent Labs 11/16/1822411/15/185 11/14/18 0520 11/13/18 2220 CALCIUM 8.8 8.7 8.3* 8.6 MAGNESIUM 1.02 -- -- 0.94 PHOS -- -- -- 5.6* Recent Labs 11/13/18 2220 PT 12.5 PTT 24* No results for input(s): LDH, URICACID in the last 168 hours. ABG (Arterial Blood Gas) Lab Results Component Value Date pH Art 7.44 11/15/2018 pO2 Art 65 (L) 11/15/2018 pCO2 Art 43 11/15/2018 Microbiology Results (Last 30 days) Procedure Component Value Units Date/Time Blood culture [[id number]] Collected: 11/14/18 0143 Lab Status: Preliminary result Specimen: Blood Updated: 11/16/18700 Blood Culture No growth at 2 days. Legionella Urinary Antigen [[id number]] Collected: 11/13/182349 Lab Status: Final result Specimen: Urine Updated: 11/14/18820 Legionella Urinary Antigen Negative Comment: A negative Legionella Urinary Antigen by EIA suggests no recent or current infection with L. pneumophila Serogroup 1. Antigen may not be present in urine in early infection, and the level of antigen present in the urine may be below the detection limit of the test. Sensitivity: 95% Specificity 95%. Blood culture [[id number]] Collected: 11/13/18 2240 Lab Status: Preliminary result Specimen: Blood Updated: 11/16/18700 Blood Culture No growth at 2 days. Lower Respiratory Culture Bronchial Alveolar Lavage [[id number]] Collected: 11/13/182214 Lab Status: Final result Specimen: Bronchial Alveolar Lavage Updated: 11/16/18824 Lower Respiratory Culture No growth Gram Stain -- Few Neutrophils seen No squamous epithelial cells Rare mixed bacterial morphotypes suggestive of normal upper respiratory caryn Respiratory Panel PCR [[id number]] (Abnormal) Collected: 11/13/182214 Lab Status: Final result Specimen: Nasopharyngeal Swab Updated: 11/13/182349 Resp Panel Source SEAM PRESS OPERATOR Swab Resp Panel PCR Positive Comment: Respiratory Panels are performed on the MicroEnsure, using multiplexed PCR nucleic acid detection. Negative results do not preclude respiratory infection and should not be used as the sole basis for diagnosis, treatment or other management decisions. Adenovirus Not Detected Coronavirus HKU1 Not Detected Coronavirus NL63 Not Detected Coronavirus 229E Not Detected Coronavirus OC43 Not Detected Human Metapneumovirus Not Detected Human Rhino/Enterovirus Not Detected Influenza A Not Detected Influenza A H1 Not Detected Influenza A H1-2009 Detected Influenza A H3 Not Detected Influenza B Not Detected Parainfluenza 1 Not Detected Parainfluenza 2 Not Detected Parainfluenza 3 Not Detected Parainfluenza 4 Not Detected Respiratory Syncytial Virus Not Detected Chlamydophila pneumoniae Not Detected Mycoplasma pneumoniae Not Detected 11/13/18 CTA 11/13 1. Diffuse alveolar and interstitial lung opacities could be severe alveolar and interstitial pulmonary edema or atypical infection 2. 2.8 cm left adrenal nodule. If there are no old studies to document stability then CT or MRI adrenal mass protocol could be performed. Results for POPPY PINO ( ) as of 11/14/2018 12:29 Ref. Range 11/13/2018 22:20 ProBNP Latest Ref Range: <=125 pg/mL 2,920 (H) PFT 09/29 FEV1 1.5 / 62 FVC 2.2 71 FEV1 / FVC 69 / 79 DLCO 16 / 75 TTE [facility] 11/28 Transthoracic Echocardiogram: 1. Left ventricle: the cavity size was normal. Wall thickness was increased in a pattern of mild LVH. Systolic function was normal. The estimated ejection fraction was 60-65%. Wall motion was normal;there were no regional wall motion abnormalities. 2. Right ventricle: the cavity size was at the upper limits of normal. Systolic function was normal. 3. Ventricular septum: the contour showed diastolic flattening and systolic flattening. These changes are consistent with RV volume and RV pressure overload. 4. Left atrium: the atrium was mildly dilated. 5. Tricuspid valve: there was moderate-severe regurgitation 6. Pulmonary arteries: Pulmonary systolic pressure was increased, in the range of 55 mm Hg to 60 mmHg TTE 09/28 1. The left ventricular chamber size is normal. Left ventricular wall thickness is normal. There is normal global left ventricular systolic function. Ejection fraction is estimated to be 65%. There are no left ventricular segmental wall motion abnormalities. Doppler assessment is consistent with normal left sided filling pressure. 2. Right ventricular chamber size, wall thickness, and systolic function are within normal limits. The estimated pulmonary artery systolic pressure is 33 mmHg. 3. The left atrium is normal in size. The right atrium appears normal. There is a possible patent foramen ovale demonstrated by color Doppler IS P/ATIENT CRITICALLY ILL ? Is there a high potential of sudden, clinically significant, or life threatening deterioration? Yes Is there a need for direct personal assessment and management to treat/prevent multiple vital organfailure/deterioration? Yes PATIENT IS CRITICALLY ILL WITH THESE DIAGNOSES BEING MANAGED BY [facility] TEAM: ARDs I personally performed 30 minutes of aggregate critical care time exclusive of procedures and teaching. This includes time spent during direct patient evaluation and reassessment, interpreting diagnostic tests, directing life and/or organ supporting interventions and documentation on the unit. Coleman Cummings MD [facility] Clinical Integration Project Managerhigh school social studies teacher [facility] [employer] Rn Picu - ICU/Pulmonary/Critical Care [facility] * Natali Kingston A - 11/16/2018 7:24 AM EDT PGY-1 Progress Note Date: 11/16/18 Patient Information Name: Poppy Pino : 1960 PCP: KIARA Jesus PCP Admit Date: 11/13/2018 Attending: Coleman Cummings MD ID: Poppy Pino is a 58 year old female with past medical history of COPD on home O2 2-3L, IBS, diabetes mellitus, and hypertension presenting as transferred from OSH for ARDS in the setting of Influenza HI 2008 after recently completing a course of TamiFlu and steroids for influenza and COPD exacerbation. Active Problems: ARDS (adult respiratory distress syndrome) Shock ANGE (acute kidney injury) Subjective/24h Events - weaned off nimbex - anemia workup significant for iron, folate, and B12 deficiency - breath stacking - switched back to propofol with good effect - levophed added back on for blood pressure support - increased ventilation to 7 cc/kg Objective Scheduled Meds: ??? polyethylene glycol 17 g Oral Daily ??? senna-docusate 1 tablet Oral BID ??? shift total and Settings verification 1 each Intravenous 2 Times Daily - Shift Total ??? folic acid 1 mg Oral Daily ??? cyanocobalamin (vitamin B-12) 1,000 mcg Oral Daily ??? chlorhexidine 15 mL Oral BID ??? white petrolatum-mineral oil 1 each Both Eyes BID ??? sodium bicarbonate 650 mg Per NG tube Q8H ??? pantoprazole 40 mg Intravenous Daily ??? insulin lispro 1-4 Units Subcutaneous Q4H ROSEMARY ??? heparin (Porcine) 5,000 Units Subcutaneous Q8H ROSEMARY ??? ipratropium-albuterol 3 mL Nebulization Q4H ROSEMARY ??? piperacillin-tazobactam 3.375 g Intravenous Q8H Continuous Infusions: ??? fentaNYL 200 mcg/hr (11/16/18 0400) ??? tube feeding diet ??? propofol 50 mcg/kg/min (11/16/18 0200) ??? midazolam in normal saline 5 mg/hr (11/16/18 0400) ??? sodium chloride 0.9% 10 mL/hr (11/14/18 1800) ??? NORepinephrine 2 mcg/min (11/16/18 0325) PRN Meds:.bisacodyl, Assess AND [] fentaNYL AND fentaNYL AND fentaNYL AND shift total and Settings verification, Glucose 40% oral gel OR dextrose OR glucagon (human recombinant) Last value Range last 24 hrs Temperature Temp: 37.2 ??C (99 ??F) Temp: [37.2 ??C (99 ??F)-37.8 ??C (100 ??F)] Heart Rate Heart Rate: 81 Heart Rate: [76-223] Blood Pressure (arterial) .BP (Arterial Line): 99/56 BP (Arterial Line): (49-192)/(39-120) Blood Pressure BP: 108/67 BP: -- Respiratory Rate Resp: 22 Resp: [20-36] SpO2 SpO2: 97 % SpO2: [78 %-100 %] Ventilator Settings: VC 270cc, RR 30, 40% FiO2, 10 PEEP ABG: ABG (Arterial Blood Gas) Lab Results Component Value Date pH Art 7.44 11/15/2018 pO2 Art 65 (L) 11/15/2018 pCO2 Art 43 11/15/2018 Lines: Central Line L subclavian, L radial arterial line, PIV, pena, ETT, OG tube Intake/Output Summary (Last 24 hours) at 11/16/2018 0724 Last data filed at 11/16/2018 0600 Gross per 24 hour Intake 1244 ml Output 920 ml Net 324 ml Patient Vitals for the past 168 hrs: Weight 11/16/18 0200 84 kg (185 lb 3 oz) 11/15/18 0600 83.2 kg (183 lb 6.8 oz) 11/13/18 2252 82.4 kg (181 lb 10.5 oz) Physical Exam GEN: intubated, sedated HEENT/neck: difficult to appreciate JVD Lungs: coarse breath sounds bilaterally particular worse on right heard anteriorly, no wheezes Heart: S1 S2, no murmurs, rubs, or gallops Abdomen: soft, normal bowel sounds, no hepatosplenomegaly Extremities:+2 pitting edema to knees, present peripheral pulses Skin: warm and dry, no rashes Neuro: sedated and intubated ?? Recent Labs 11/16/1822411/15/18 0035 11/14/18 0850 WBC 10.8* 11.5* 15.2* HGB 8.2* 8.9* 9.3* HCT 26.4* 29.6* 31.2* PLATELET 187 190 247 Recent Labs 11/16/1822411/15/18 0035 11/14/18 0520 NA 145 144 143 K 4.4 4.8 4.9 CL 109* 107 108* CO2 27 25 23 BUN 31* 30* 24* CREATININE 1.03 1.45* 1.30* Recent Labs 11/13/18 2220 AST 30 ALT 16 ALKPHOS 89 BILITOT 0.2 Recent Labs 11/16/18 0225 11/15/18 0035 11/14/18 0520 11/13/18 2220 CALCIUM 8.8 8.7 8.3* 8.6 MAGNESIUM 1.02 -- -- 0.94 PHOS -- -- -- 5.6* Recent Labs 11/13/18 2220 INR 1.1 PT 12.5 PTT 24* Recent Labs 11/13/18 2220 CK 159 TROPONINT <0.01 Recent Labs 11/16/18 0350 11/16/18 0051 11/15/18 2120 11/15/18 1519 11/15/18 1140 11/15/18 0745 POCGLU 145 132 121 116 105 118 Imaging: CXR: Diffuse airspace and interstitial opacities; differential considerations include pneumonia (bacterial, atypical/mycoplasma, viral, pneumocystic), pulmonary edema, ARDS, pulmonary alveolar proteinosis, pulmonary hemorrhage, acute interstitial pneumonia, hypersensitivity or drug induced pneumonitis, among other possible etiologies. ?? Abdomen XR: OG tube tip projects over the fundus, although the side port projects over the apparently region of the gastric cardia; consider slight advancement. ?? Assessment & Plan Poppy Pino is a 58 year old female with past medical history of COPD on home O2 2-3L, IBS, diabetes mellitus, and hypertension presenting as transferred from OSH for ARDS in the setting of Influenza HI 2008 after recently completing a course of TamiFlu and steroids for influenza and COPD exacerbation. ?? Patient is clinically improving after discontinuing cistracurium. Patient was breath stacking overnight with tremendous amounts of midazolam on board, which subsequently improved with propofol. She is currently on volume control with tidal volume of 400, FiO2 35, and PEEP 10. Will attempt to wean midazolam and following up ABG and chest xray. Consideration to lower PEEP as patient is showing clinical signs of improvement. Patient had several seconds of NSVT overnight. Electrolytes appear stable with K> 4.0 and Mg > 1.0. Will continue to monitor. Neurologic/Sedation/Analgesia: #Sedated for mechanical ventilation - consider weaning versed gtt - fentanyl gtt - 200 mcg - off cistracurium ( ?? Cardiovascular: #Hypotension secondary to sedation - resolved off pressors ?? #Volume overload - pro BNP 2920, patient has edema on exam - hold off diuresis, fluid balance net even since admission - follow up I/O ?? Respiratory: #Bilateral opacities concerning for ARDS #COPD exacerbation - ARDS ventilator protocol - f/up sputum culture - duonebs q4 hr - hold steroids in setting of influenza - d/c vancomycin - continue zosyn - repeat CXR and ABG on 11/16 ?? GastrointestinalNutrition: - protonix - tube feeds Renal/Electrolytes: Acute kidney injury - Cr improved 1.3 --> 1.03 - FEUrea 18% indicating prerenal - avoid nephrotoxic agents ?? Infectious Disease: #Concern for post-influenza pneumonia - f/up blood cultures - NGTD - f/up sputum cultures - NGTD - zosyn for pseudomonal coverage in COPD exacerbation - respiratory PCR positive for influenza H1-2009 ?? Hematology/Oncology: #normocytic anemia, likely mixed from B12, folate, and iron deficiency - iron 31 with iron sat 14, starting ferrous sulfate 325 mg daily - folate 14, starting folate 100 mg daily - vitamin B12, starting vitamin B12 1 mg daily ?? Endocrine: #hypothyroid - likely in the setting of infection ?? GI PPx: protonix DVT PPx: enoxaparin Lines: right subclavian central line, left radial arterial line Diet: Tube feeds Code Status: FULL CODE Disposition: ICU Natali Kingston MD Internal Medicine Resident, PGY-2 11/16/18 7:24 AM * Monica Kemp, KAMLA - 11/16/2018 5:45 AM EDT Pt RASS 2 at beginning of shift. Pt awake without stimulus, bucking vent, visibly uncomfortable on 8 of versed and 200 of fentanyl, despite PRN boluses (see mar). Team was notified and propofol gtt was added, versed was weaned to 5 per MD. Pt became hypotensive 80s/50s (50s). With goal of maintaining map>65 levo gtt initiated and at currently at 2. Pt remains in VC 35%, TV 400, peep 10. [id number] pt had 40 beat run of Vtach. BP dropped to 49/39 (42) during episode and did not sustain, pt converted back to NSR without intervention. Team was notified of event by covering RN. Afebrile. UOP adequate. Will continue to monitor. * Joyce Hardy [facility] - 11/15/2018 8:01 PM EDT AMV: Yes SBT: No Vent Settings: Servo I Ventilator Mode: VC Tidal Volume Set: 400 Resp Rate Set: 22 PEEP Set: 10 FiO2: 35 % Ventilator Measurements: Resp: 22 Vt Exhaled: 419 PIP: 33 MAP: 15 Plateau Press: 23 Ve: 9.2 PEEP: 12 cmH20 SpO2: 97 % EtCO2:33 mmHg Airway: 7.0 @ 23 cm at the Gum. Skin Integrity: blanchable breakdown on lips Nebulized Medications: Albuterol & Ipratroprium Breath Sounds: rhonchi/exp wheeze Secretions: large amounts of thick zuniga secretions Assessment / Events / Plan of the Day: Received patient VCV 270 x 30 PEEP 10 and 35%. Per report plan was to keep patient at above settings overnight though paralytics where weaned during the day. Patient had a few episodes of vent dyschrony despite sedation adjustment; Dr Cummings removed patient from ARDs settings and asked that she be liberated to 7cc/kg/IBW. Settings were adjusted as above. AB.44/43/65/28.3 (P/F: 186) Team aware. Pt rested on settings overnight-continue to wean per AMV protocol. Joyce Hardy RCP * Marcos Mcgraw RCP - 11/15/2018 5:12 PM EDT 58 y.o.??female??w/ PMH of COPD on home O2 2-3L, IBS, diabetes mellitus, and HTN who presented as atransfer from [facility] for ARDS in the setting of recent influenza. She was intubated and transferred here 11/13/18. Modest hemodynamic instability with a mild pressor requirement. Acute kidney injury thatinitially improved. An elevated BNP that could reflect right ventricular strain. She was paralyzed and not initially proned. ?? AMV Protocol: No ARDS Protocol: Yes CTICU Protocol: No SBT Protocol: No SBT: Not performed/Excluded: PEEP greater than 10 cmH2O Vent Settings: Servo I Ventilator Mode: VC Tidal Volume Set: 270 Resp Rate Set: 30 PEEP Set: 10 FiO2: 40 % Ventilator Measurements: Resp: (!) 32 Vt Exhaled: 287 PIP: 24 MAP: 14.9 Plateau Press: 21 Ve: 8.4 PEEP: 12 cmH20 SpO2: 98 % EtCO2: 42 mmHg Airway: 7.0 @ 23 cm at the Gum. Skin Integrity: WDL Nebulized Medications: Albuterol & Ipratroprium Breath Sounds: BBS clear and occasional rhonchi and wheezes Secretions: Thin and small to moderate white creamy secretions. Assessment / Events / Plan of the Day: The pt remains on Mechanical ventilation and was titrated from 12 to [id number] peep today, she remains on a rate of 30 Last ABG 4/6 0613 7.29/57/84/26.5/-0.1 on 40% Pt remains on the ARDS protocol; has had episodes of desaturations with turning. Will follow on current settings and likely not titrate Peep any further at this time. Marcos Mcgraw RCP * Coleman Cummings MD - 11/15/2018 1:01 PM EDT Images from the original note were not included. MICU STAFF PROGRESS NOTE Critical Care / Pulmonary / Internal Medicine Coleman Cummings MD [facility] Hospital Course 58 y.o. female w/ PMH of COPD on home O2 2-3L, IBS, diabetes mellitus, and HTN who presented as a transfer from [facility] for ARDS in the setting of recent influenza. She was intubated and transferred here 11/13/18. PaO2: FiO2 about 150 initially and exhibiting poor compliance out of proportion to her depressed oxygenation with chest CT showing widespread interstitial and alveolar opacities. Modest hemodynamic instability with a mild pressor requirement. Acute kidney injury that initially improved. Anelevated BNP that could reflect right ventricular strain. She was paralyzed and not initially proned. Improved 11/15/18 with PaO2:FiO2 170 and Ppl 21, thus paralytics stopped. ASSESSMENT, MANAGEMENT, and DECISION MAKING: ?? ARDS-post influenzal. ?? ? Post influenza bacterial pneumonia- broadly covered, empirically ?? Acute kidney injury-improved initially, with downturn today post diuresis ?? Underlying COPD reportedly on nocturnal oxygen-but FVC much greater than 50% of predicted.?Sleepdisordered breathing ?? Possible PFO- currently without an oxygenation problem. Uninterrupted VT E prophylaxis essential. Could consider bubble study down the road ?? Right heart strain related to diffuse lung disease Plan: ?? Wean off paralytics ?? Continue current PEEP level without manipulation ?? Continue low tidal volume ?? Hold further diuresis at the moment ?? Start trickle tube feeds ?? Because complaints of the respiratory system is improved will increase fentanyl given nursing concerns about suboptimal sedation/analgesia ?? VTE prophylaxis with subcutaneous heparin ?? GI prophylaxis with pantoprazole ?? CODE STATUS: Full ?? , José Manuel, updated at the bedside Patient seen and examined on critical care rounds. Active Problems: ARDS (adult respiratory distress syndrome) Shock ANGE (acute kidney injury) Overnight events: ?? ID input: dc Tamiflu ?? Propofol switch to Versed gtt ?? Improved oxygenation and compliance ?? Improved hemodynamics ??? polyethylene glycol 17 g Oral Daily ??? senna-docusate 1 tablet Oral BID ??? shift total and Settings verification 1 each Intravenous 2 Times Daily - Shift Total ??? chlorhexidine 15 mL Oral BID ??? shift total and Settings verification Intravenous 2 Times Daily - Shift Total ??? white petrolatum-mineral oil 1 each Both Eyes BID ??? sodium bicarbonate 650 mg Per NG tube Q8H ??? pantoprazole 40 mg Intravenous Daily ??? insulin lispro 1-4 Units Subcutaneous Q4H ROSEMARY ??? heparin (Porcine) 5,000 Units Subcutaneous Q8H ROSEMARY ??? ipratropium-albuterol 3 mL Nebulization Q4H ROSEMARY ??? piperacillin-tazobactam 3.375 g Intravenous Q8H ??? fentaNYL 200 mcg/hr (11/15/18 0845) ??? midazolam in normal saline 8 mg/hr (11/15/18 0600) ??? cisatracurium (NIMBEX) (standard ADULT) infusion Stopped (11/15/18 1045) ??? sodium chloride 0.9% 10 mL/hr (11/14/18 1800) ??? NORepinephrine Stopped (11/14/18 1805) Exam: Last value Range last 24 hrs Temperature Temp: 37.4 ??C (99.3 ??F) Temp: [37 ??C (98.6 ??F)-37.4 ??C (99.3 ??F)] Heart Rate Heart Rate: 92 Heart Rate: [88-101] Blood Pressure BP: 108/67 BP: -- Respiratory Rate Resp: 30 Resp: [30] SpO2 SpO2: 98 % SpO2: [94 %-100 %] Art BP BP (Arterial Line): 110/60 BP (Arterial Line): (95-125)/(56-67) Intake/Output Summary (Last 24 hours) at 11/15/2018 1305 Last data filed at 11/15/2018 1000 Gross per 24 hour Intake 1352.45 ml Output 1185 ml Net 167.45 ml PEx: Gen middle-age woman paralyzed, sedated, comfortably ventilated Skin No rash HEENT PERRL, OP clear without thrush LNs No AC/PC/Ax JOSEPH Chest coarse anterior breath sounds, without wheezes or crackles appreciated Cor Without MRG Abd Soft, NT, +BS, without organomegaly MS No active synovitis Ext No clubbing, trace edema Neuro Sedated Ventilator: Rate 30/tidal volume 270/0 0.4/10 Labs/studies: Recent Labs 11/15/18 0035 11/14/18 0850 11/13/18 2220 WBC 11.5* 15.2* 16.2* HGB 8.9* 9.3* 10.0* HCT 29.6* 31.2* 32.4* PLATELET 190 247 225 NEUTROABS 8.37* 12.67* 13.88* Recent Labs 11/15/18 0035 11/14/18 0520 11/13/18 2220 NA 144 143 140 K 4.8 4.9 4.9 CL 107 108* 105 CO2 25 23 22 BUN 30* 24* 20* CREATININE 1.45* 1.30* 1.33* Recent Labs 11/13/18 2220 AST 30 ALT 16 ALKPHOS 89 BILITOT 0.2 Recent Labs 11/15/18 0035 11/14/18 0520 11/13/18 2220 CALCIUM 8.7 8.3* 8.6 MAGNESIUM -- -- 0.94 PHOS -- -- 5.6* Recent Labs 11/13/18 2220 PT 12.5 PTT 24* No results for input(s): LDH, URICACID in the last 168 hours. ABG (Arterial Blood Gas) Lab Results Component Value Date pH Art 7.29 (CRIT) 11/15/2018 pO2 Art 84 (L) 11/15/2018 pCO2 Art 57 (H) 11/15/2018 Microbiology Results (Last 30 days) Procedure Component Value Units Date/Time Blood culture [[id number]] Collected: 11/14/18 0143 Lab Status: Preliminary result Specimen: Blood Updated: 11/15/18 0701 Blood Culture No growth at 1 day. Legionella Urinary Antigen [[id number]] Collected: 11/13/182349 Lab Status: Final result Specimen: Urine Updated: 11/14/18 0821 Legionella Urinary Antigen Negative Comment: A negative Legionella Urinary Antigen by EIA suggests no recent or current infection with L. pneumophila Serogroup 1. Antigen may not be present in urine in early infection, and the level of antigen present in the urine may be below the detection limit of the test. Sensitivity: 95% Specificity 95%. Blood culture [[id number]] Collected: 11/13/18 2240 Lab Status: Preliminary result Specimen: Blood Updated: 11/15/18 0701 Blood Culture No growth at 1 day. Lower Respiratory Culture Bronchial Alveolar Lavage [[id number]] Collected: 11/13/182214 Lab Status: Preliminary result Specimen: Bronchial Alveolar Lavage Updated: 11/15/18 0923 Lower Respiratory Culture No growth to date. Gram Stain -- Few Neutrophils seen No squamous epithelial cells Rare mixed bacterial morphotypes suggestive of normal upper respiratory caryn Respiratory Panel PCR [[id number]] (Abnormal) Collected: 11/13/182214 Lab Status: Final result Specimen: Nasopharyngeal Swab Updated: 11/13/182349 Resp Panel Source SEAM PRESS OPERATOR Swab Resp Panel PCR Positive Comment: Respiratory Panels are performed on the MicroEnsure, using multiplexed PCR nucleic acid detection. Negative results do not preclude respiratory infection and should not be used as the sole basis for diagnosis, treatment or other management decisions. Adenovirus Not Detected Coronavirus HKU1 Not Detected Coronavirus NL63 Not Detected Coronavirus 229E Not Detected Coronavirus OC43 Not Detected Human Metapneumovirus Not Detected Human Rhino/Enterovirus Not Detected Influenza A Not Detected Influenza A H1 Not Detected Influenza A H1-2009 Detected Influenza A H3 Not Detected Influenza B Not Detected Parainfluenza 1 Not Detected Parainfluenza 2 Not Detected Parainfluenza 3 Not Detected Parainfluenza 4 Not Detected Respiratory Syncytial Virus Not Detected Chlamydophila pneumoniae Not Detected Mycoplasma pneumoniae Not Detected 11/13/18 CTA 11/13 1. Diffuse alveolar and interstitial lung opacities could be severe alveolar and interstitial pulmonary edema or atypical infection 2. 2.8 cm left adrenal nodule. If there are no old studies to document stability then CT or MRI adrenal mass protocol could be performed. Results for POPPY PINO ( ) as of 11/14/2018 12:29 Ref. Range 11/13/2018 22:20 11/13/2018 22:21 11/14/2018 01:40 11/14/2018 05:22 11/14/2018 08:50 11/14/2018 10:26 Eosinophils % Latest Units: % 0.0 0.0 Results for POPPY PINO ( ) as of 11/14/2018 12:29 Ref. Range 11/13/2018 22:21 11/14/2018 01:40 11/14/2018 05:22 11/14/2018 10:26 pH Art Latest Ref Range: 7.35 - 7.45 7.22 (CRIT) 7.08 (CRIT) 7.13 (CRIT) 7.21 (CRIT) pCO2 Art Latest Ref Range: 35 - 45 mmHg 53 (H) 77 (CRIT) 71 (CRIT) 60 (H) pO2 Art Latest Ref Range: 85 - 104 mmHg 98 114 (H) 79 (L) 77 (L) HCO3 Art Latest Ref Range: 20.0 - 26.0 mmol/L 21.0 22.4 23.0 23.5 BE Art Latest Ref Range: -3.0 - 3.0 mmol/L -6.7 (L) -7.6 (L) -6.2 (L) -4.3 (L) O2HB Art Latest Ref Range: 94.0 - 97.0 % 95.5 96.0 91.6 (L) 92.7 (L) Results for POPPY PINO ( ) as of 11/14/2018 12:29 Ref. Range 11/13/2018 22:20 ProBNP Latest Ref Range: <=125 pg/mL 2,920 (H) PFT 09/29 FEV1 1.5 / 62 FVC 2.2 /71 FEV1 / FVC 69 / 79 DLCO 16 / 75 TTE NV 11/28 Transthoracic Echocardiogram: 1. Left ventricle: the cavity size was normal. Wall thickness was increased in a pattern of mild LVH. Systolic function was normal. The estimated ejection fraction was 60-65%. Wall motion was normal;there were no regional wall motion abnormalities. 2. Right ventricle: the cavity size was at the upper limits of normal. Systolic function was normal. 3. Ventricular septum: the contour showed diastolic flattening and systolic flattening. These changes are consistent with RV volume and RV pressure overload. 4. Left atrium: the atrium was mildly dilated. 5. Tricuspid valve: there was moderate-severe regurgitation 6. Pulmonary arteries: Pulmonary systolic pressure was increased, in the range of 55 mm Hg to 60 mmHg TTE 09/28 1. The left ventricular chamber size is normal. Left ventricular wall thickness is normal. There is normal global left ventricular systolic function. Ejection fraction is estimated to be 65%. There are no left ventricular segmental wall motion abnormalities. Doppler assessment is consistent with normal left sided filling pressure. 2. Right ventricular chamber size, wall thickness, and systolic function are within normal limits. The estimated pulmonary artery systolic pressure is 33 mmHg. 3. The left atrium is normal in size. The right atrium appears normal. There is a possible patent foramen ovale demonstrated by color Doppler IS P/ATIENT CRITICALLY ILL ? Is there a high potential of sudden, clinically significant, or life threatening deterioration? Yes Is there a need for direct personal assessment and management to treat/prevent multiple vital organfailure/deterioration? Yes PATIENT IS CRITICALLY ILL WITH THESE DIAGNOSES BEING MANAGED BY CCS TEAM: ARDs I personally performed 35 minutes of aggregate critical care time exclusive of procedures and teaching. This includes time spent during direct patient evaluation and reassessment, interpreting diagnostic tests, directing life and/or organ supporting interventions and documentation on the unit. Coleman Cummings MD [facility] Clinical Integration Project Managerhigh school social studies teacher [employer] [facility] [employer] Rn [place]u - ICU/Pulmonary/Critical Care [facility] * Kelly Bermudez MD - 11/15/2018 7:08 AM EDT PGY-1 Progress Note Date: 11/15/18 Patient Information Name: Poppy Pino : 1960 PCP: KIARA Jesus PCP Admit Date: 11/13/2018 Attending: Coleman Cummings MD ID: Poppy Pino is a 58 year old female with past medical history of COPD on home O2 2-3L, IBS, diabetes mellitus, and hypertension presenting as transferred from OSH for ARDS in the setting of Influenza HI 2008 after recently completing a course of TamiFlu and steroids for influenza and COPD exacerbation. Active Problems: ARDS (adult respiratory distress syndrome) Shock ANGE (acute kidney injury) Subjective/24h Events - transitioned from propofol to versed - decreased dose of fentanyl - weaned off of levo - diuresed with 40 IV Lasix - 1.5 L of urine, net positive 250 cc - bicarb 25, creatinine 1.45 from 1.3 - started on bicab tablets - started on SSI - overnight nursing concerned that patient not fully sedated as she becomes tachycardic and hypertensive when lied flat - ABG this am improved: 7.29/57/84/26 PF 210 - discontinued TamiFlu per ID Objective Scheduled Meds: ??? vancomycin 1,250 mg Intravenous Q18H ??? chlorhexidine 15 mL Oral BID ??? shift total and Settings verification 1 each Intravenous 2 Times Daily - Shift Total ??? shift total and Settings verification Intravenous 2 Times Daily - Shift Total ??? white petrolatum-mineral oil 1 each Both Eyes BID ??? sodium bicarbonate 650 mg Per NG tube Q8H ??? pantoprazole 40 mg Intravenous Daily ??? insulin lispro 1-4 Units Subcutaneous Q4H ROSEMARY ??? heparin (Porcine) 5,000 Units Subcutaneous Q8H ROSEMARY ??? ipratropium-albuterol 3 mL Nebulization Q4H ROSEMARY ??? piperacillin-tazobactam 3.375 g Intravenous Q8H Continuous Infusions: ??? fentaNYL 100 mcg/hr (11/15/18 0600) ??? midazolam in normal saline 8 mg/hr (11/15/18 06) ??? cisatracurium (NIMBEX) (standard ADULT) infusion 2 mcg/kg/min (11/14/18 194) ??? sodium chloride 0.9% 10 mL/hr (11/14/18 1800) ??? NORepinephrine Stopped (11/14/181804) PRN Meds:.Assess AND [] fentaNYL AND fentaNYL AND fentaNYL AND shift total and Settings verification, midazolam in normal saline AND midazolam AND shift total and Settings verification, Glucose 40% oral gel OR dextrose OR glucagon (human recombinant) Last value Range last 24 hrs Temperature Temp: 37 ??C (98.6 ??F) Temp: [36.8 ??C (98.2 ??F)-37.3 ??C (99.1 ??F)] Heart Rate Heart Rate: 97 Heart Rate: [73-101] Blood Pressure (arterial) .BP (Arterial Line): 110/62 BP (Arterial Line): (89-111)/(53-66) Blood Pressure BP: 108/67 BP: -- Respiratory Rate Resp: 30 Resp: [30] SpO2 SpO2: 97 % SpO2: [94 %-100 %] Ventilator Settings: VC 270cc, RR 30, 40% FiO2, 10 PEEP ABG: ABG (Arterial Blood Gas) Lab Results Component Value Date pH Art 7.29 (CRIT) 11/15/2018 pO2 Art 84 (L) 11/15/2018 pCO2 Art 57 (H) 11/15/2018 Lines: Central Line L subclavian, L radial arterial line, PIV, pena, ETT, OG tube Intake/Output Summary (Last 24 hours) at 11/15/2018 0709 Last data filed at 11/15/2018 0600 Gross per 24 hour Intake 1675.32 ml Output 1410 ml Net 265.32 ml Patient Vitals for the past 168 hrs: Weight 11/15/18 0600 83.2 kg (183 lb 6.8 oz) 11/13/18 2252 82.4 kg (181 lb 10.5 oz) Physical Exam GEN: intubated, sedated HEENT/neck: difficult to appreciate JVD Lungs: coarse breath sounds bilaterally particular worse on right heard anteriorly, no wheezes Heart: S1 S2, no murmurs, rubs, or gallops Abdomen: soft, normal bowel sounds, no hepatosplenomegaly Extremities:+2 pitting edema to knees, present peripheral pulses Skin: warm and dry, no rashes Neuro: sedated and intubated ?? Recent Labs 11/15/18 0035 11/14/18 0850 11/13/18 2220 WBC 11.5* 15.2* 16.2* HGB 8.9* 9.3* 10.0* HCT 29.6* 31.2* 32.4* PLATELET 190 247 225 Recent Labs 11/15/18 0035 11/14/18 0520 11/13/18 2220 NA 144 143 140 K 4.8 4.9 4.9 CL 107 108* 105 CO2 25 23 22 BUN 30* 24* 20* CREATININE 1.45* 1.30* 1.33* Recent Labs 11/13/18 2220 AST 30 ALT 16 ALKPHOS 89 BILITOT 0.2 Recent Labs 11/15/18 0035 11/14/18 0520 11/13/18 2220 CALCIUM 8.7 8.3* 8.6 MAGNESIUM -- -- 0.94 PHOS -- -- 5.6* Recent Labs 11/13/18 2220 INR 1.1 PT 12.5 PTT 24* Recent Labs 11/13/18 2220 CK 159 TROPONINT <0.01 Recent Labs 11/15/18 0353 11/15/18 0034 11/14/18 1954 11/14/18 1618 11/14/18 1208 11/14/18 0851 POCGLU 120 126 128 131 164 181 Imaging: CXR: Diffuse airspace and interstitial opacities; differential considerations include pneumonia (bacterial, atypical/mycoplasma, viral, pneumocystic), pulmonary edema, ARDS, pulmonary alveolar proteinosis, pulmonary hemorrhage, acute interstitial pneumonia, hypersensitivity or drug induced pneumonitis, among other possible etiologies. ?? Abdomen XR: OG tube tip projects over the fundus, although the side port projects over the apparently region of the gastric cardia; consider slight advancement. ?? Assessment & Plan Poppy Pino is a 58 year old female with past medical history of COPD on home O2 2-3L, IBS, diabetes mellitus, and hypertension presenting as transferred from OSH for ARDS in the setting of Influenza HI 2008 after recently completing a course of TamiFlu and steroids for influenza and COPD exacerbation. ?? Patient appears to be improving as evidenced by her ABGs and her rising PF ratio. Will wean off herNimbex and increase her fentanyl dose to 200mg/hr to increase her sedation given the vital sign changes associated with re- positioning. Will be mindful of plateau pressures on increased dose of fentanyl. If she does well can start weaning the versed today as well. Sputum culture growing normal upper respiratory caryn, will discontinue vancomycin as staph aureus had it been present would have likely grown by now. ?? Neurologic/Sedation/Analgesia: #Sedated for mechanical ventilation - consider weaning versed gtt - fentanyl gtt - increase dose to 200 mcg - cisatracurium for ventilator synchrony ?? Cardiovascular: #Hypotension secondary to sedation - resolved off pressors ?? #Volume overload - pro BNP 2920, patient has edema on exam - hold off diuresis today given increase in creatinine - bicarb supplementation - follow up I/O ?? Respiratory: #Bilateral opacities concerning for ARDS #COPD exacerbation - ARDS ventilator protocol - f/up sputum culture - duonebs q4 hr - hold steroids in setting of influenza - d/c vancomycin - continue zosyn ?? GastrointestinalNutrition: - protonix ?? Renal/Electrolytes: Acute kidney injury - Cr 1.45 from 1.3 yesterday, hold off diuresis today - likely prerenal vs ATN in setting of infectious process - avoid nephrotoxic agents ?? Infectious Disease: #Concern for post-influenza pneumonia - f/up blood cultures - f/up sputum cultures - zosyn for pseudomonal coverage in COPD exacerbation - respiratory PCR positive for influenza H1-2009 ?? Hematology/Oncology: #normocytic anemia - iron studies - folate - B12 ?? Endocrine: #hypothyroid - likely in the setting of infection ?? GI PPx: protonix DVT PPx: enoxaparin Lines: right subclavian central line, left radial arterial line Diet: Tube feeds Code Status: FULL CODE Disposition: ICU Kelly Bermudez MD Internal Medicine Resident, PGY-1 11/15/18 7:09 AM * Nina Enriquez [facility] - 11/14/2018 9:00 PM EDT AMV Protocol: No ARDS Protocol: Yes CTICU Protocol: No SBT Protocol: No SBT: Not performed/Excluded: PEEP greater than 10 cmH2O Vent Settings: Servo I Ventilator Mode: VC Tidal Volume Set: 270 Resp Rate Set: 30 PEEP Set: 12 FiO2: 40 % Ventilator Measurements: Resp: 30 Vt Exhaled: 275 PIP: 26 MAP: 17 Plateau Press: 23 Ve: 4.7 PEEP: 16 cmH20 SpO2: 100 % EtCO2: 39 mmHg Airway: 7.0 @ 23 cm at the Gum. Skin Integrity: WDL Nebulized Medications: Albuterol & Ipratroprium Breath Sounds: clear and diminished Secretions: small/white-clear/thick Assessment / Events / Plan of the Day: keep pt on the above settings and titrate according to ABG'sand consult with CCS team. 0613 AB.28, 56, 83, 26, P/F=207 on the above settings. Will continue to monitor and support. Nina Enriquez RCP * Justin Frank RCP - 11/14/2018 6:27 PM EDT AMV Protocol: No ARDS Protocol: Yes CTICU Protocol: No SBT Protocol: No Vent Settings: Servo I Ventilator Mode: VC Tidal Volume Set: 270 Resp Rate Set: 30 PEEP Set: (S) 12FiO2: 40 % Ventilator Measurements: Resp: 30 Vt Exhaled: 274 PIP: 30 MAP: 19.1 Plateau Press: 28 Ve: 8.3 PEEP: 18 cmH20 SpO2: 96 % EtCO2: 39 mmHg Airway: 7.0 @ 23 cm at the Gum. Skin Integrity: WDL Nebulized Medications: Albuterol & Ipratroprium Breath Sounds: Diminished Secretions: Small amount Assessment / Events / Plan of the Day: Pt received on VCV as noted, P:F was 158 this morning. PEEP was weaned to 12, FiO2 remains at 40% ABG revealed a P:F of 180. Justin Frank RCP * Ayesha Hahn, RD - 11/14/2018 4:02 PM EDT Clinical Nutrition Initial Note Reason for intervention: Consult TF Recommendations: Suggest: Peptamen AF with a goal rate of 63 ml per hour plus 1 scoop(s) of protein powder daily. Total goal volume daily is 1260 ml. This rate is calculated to compensate for unplanned time off feedings due to potential procedures, etc. At goal, this will provide 1537 calories, 101 grams protein, 1018 ml water from formula + 50 ml water from protein powder administration and 100% of RDI's for vitamins and minerals. *Pt is on pressors which may increase risk for gastrointestinal hypoperfusion with enteral feeds. Monitor for increasing abdominal distention, constipation, elevated gastric residuals, or ileus. Labs: check Mg and Phos with daily BMP for now. Monitor weight. I was able to speak with Blue Team during interdisciplinary rounds. Poppy Pino is a 58 y.o. 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 fentaNYL 100 mcg/hr (11/14/18 1400) ??? midazolam in normal saline 8 mg/hr (11/14/18 1431) ??? cisatracurium (NIMBEX) (standard ADULT) infusion 2 mcg/kg/min (11/14/18 1400) ??? sodium chloride 0.9% 10 mL/hr (11/14/18 1432) ??? NORepinephrine 2 mcg/min (11/14/18 1512) Scheduled Meds: ??? vancomycin 1,250 mg Intravenous Q18H ??? chlorhexidine 15 mL Oral BID ??? shift total and Settings verification 1 each Intravenous 2 Times Daily - Shift Total ??? shift total and Settings verification Intravenous 2 Times Daily - Shift Total ??? white petrolatum-mineral oil 1 each Both Eyes BID ??? sodium bicarbonate 650 mg Per NG tube Q8H ??? pantoprazole 40 mg Intravenous Daily ??? insulin lispro 1-4 Units Subcutaneous Q4H ROSEMARY ??? oseltamivir 30 mg Oral BID ??? heparin (Porcine) 5,000 Units Subcutaneous Q8H ROSEMARY ??? ipratropium-albuterol 3 mL Nebulization Q4H ROSEMARY ??? piperacillin-tazobactam 3.375 g Intravenous Q8H PRN Meds: Assess AND [] fentaNYL AND fentaNYL AND fentaNYL AND shift total and Settings verification, midazolam in normal saline AND midazolam AND shift total and Settings verification, Glucose 40% oral gel OR dextrose OR glucagon (human recombinant) Estimated body mass index is 32.19 kg/m?? as calculated from the following: Height as of this encounter: 160 cm (5' 2.99). Weight as of this encounter: 82.4 kg (181 lb 10.5 oz). Adm weight (kg): 82.4 kg Eckerty body weight: 52.4 kg (115 lb 7.7 oz) Adjusted ideal body weight: 64.4 kg (141 lb 15.2 oz) Nutrition needs estimated at: 5381-9597 calories and 100 grams protein daily. VICKIE COWAN Pager # [phone] * Coleman Cummings MD - 11/14/2018 12:19 PM EDT Images from the original note were not included. MICU STAFF PROGRESS NOTE Critical Care / Pulmonary / Internal Medicine Coleman Cummings MD [facility] Hospital Course 58 y.o. female w/ PMH of COPD on home O2 2-3L, IBS, diabetes mellitus, and HTN who presented as a transfer from [facility] for acute hypoxemic and hypercarbic respiratory failure in the setting of recent influenza. She was intubated and transferred here 11/13/18. PaO2: FiO2 about 150 initially and exhibiting poor compliance out of proportion to her depressed oxygenation with chest CT showing widespread interstitial and alveolar opacities. Modest hemodynamic instability with a mild pressor requirement. Acute kidney injury that initially improved. An elevated BNP that could reflect right ventricular strain. She was paralyzed and not initially proned. ASSESSMENT, MANAGEMENT, and DECISION MAKING: ?? ARDS-post influenzal. Little reason to suspect another process such as eosinophilic pneumonia that might be steroid responsive. Compliance poor with a plateau pressure of 27 on 5 cc/kg tidal volume but oxygenation relatively preserved. ?? Hypotension-likely sedation related ?? Influenza-? Reinfection ? Resistance. ?? ? Post influenza bacterial pneumonia- broadly covered, empirically ?? Acute kidney injury-improved ?? Underlying COPD reportedly on nocturnal oxygen-but FVC much greater than 50% of predicted.?Sleepdisordered breathing ?? Possible PFO- currently without an oxygenation problem. Uninterrupted VT E prophylaxis essential. Could consider bubble study down the road ?? Right heart strain- consider inhaled epoprostenol Plan: ?? Continue paralysis but move to titratable drip with [id number] guided manipulation ?? In my judgment proning offers more risk (tube dislodgment, etc.) then benefit given her current oxygenation ?? Continue high PEEP/low tidal volume ?? Given need for permissive hypercapnia begin bicarbonate supplementation, enterally. Happily, ventilator manipulations overnight have been productive ?? Given I do not suspect a steroid responsive process or uncovered infection the Risk: Benefit of bronchoscopy is currently unfavorable ?? Continue current antibiotic/antiviral therapy. ID consult regarding possible influenza resistance ?? Continue levophed to mean arterial pressure of 65. Wean off propofol and if levophed requirementpersists add vasopressin ?? Start trickle tube feeds ?? Although unlikely that fentanyl is causing decreased chest while compliance given paralysis, would prefer to lower level of analgesia and increase density of sedation. Therefore transitioning propofol to Versed and decreasing fentanyl to 50 mcg an hour as she is reasonably narcotic-na??ve ?? VTE prophylaxis with subcutaneous heparin ?? GI prophylaxis with pantoprazole ?? CODE STATUS: Full ?? , José Manuel, updated at the bedside Patient seen and examined on critical care rounds. Active Problems: ARDS (adult respiratory distress syndrome) Shock ANGE (acute kidney injury) Overnight events: ?? Ventilator manipulations ?? Hemodynamic instability, on norepinephrine ??? vancomycin 1,250 mg Intravenous Q18H ??? chlorhexidine 15 mL Oral BID ??? shift total and Settings verification 1 each Intravenous 2 Times Daily - Shift Total ??? shift total and Settings verification Intravenous 2 Times Daily - Shift Total ??? white petrolatum-mineral oil 1 each Both Eyes BID ??? sodium bicarbonate 650 mg Per NG tube Q8H ??? pantoprazole 40 mg Intravenous Daily ??? insulin lispro 1-4 Units Subcutaneous Q4H ROSEMARY ??? oseltamivir 30 mg Oral BID ??? heparin (Porcine) 5,000 Units Subcutaneous Q8H ROSEMARY ??? ipratropium-albuterol 3 mL Nebulization Q4H ROSEMARY ??? piperacillin-tazobactam 3.375 g Intravenous Q8H ??? fentaNYL 100 mcg/hr (11/14/18 1044) ??? midazolam in normal saline 5 mg/hr (11/14/18 1050) ??? cisatracurium (NIMBEX) (standard ADULT) infusion 2 mcg/kg/min (11/14/18 1104) ??? NORepinephrine 6 mcg/min (11/14/18 1235) ??? propofol Stopped (11/14/18 1155) Exam: Last value Range last 24 hrs Temperature Temp: 37 ??C (98.6 ??F) Temp: [36.5 ??C (97.7 ??F)-37 ??C (98.6 ??F)] Heart Rate Heart Rate: 80 Heart Rate: [61-85] Blood Pressure BP: 108/67 BP: (69-130)/(42-89) Respiratory Rate Resp: 30 Resp: [22-32] SpO2 SpO2: 95 % SpO2: [72 %-98 %] Art BP BP (Arterial Line): 89/53 BP (Arterial Line): (89-102)/(51-56) Intake/Output Summary (Last 24 hours) at 11/14/2018 1253 Last data filed at 11/14/2018 0800 Gross per 24 hour Intake 1148.57 ml Output 1005 ml Net 143.57 ml PEx: Gen middle-age woman paralyzed, sedated, comfortably ventilated Skin No rash HEENT PERRL, OP clear without thrush LNs No AC/PC/Ax JOSEPH Chest coarse anterior breath sounds, without wheezes or crackles appreciated Cor Without MRG Abd Soft, NT, +BS, without organomegaly MS No active synovitis Ext No clubbing, trace edema Neuro Sedated Ventilator: Assist control/rate 10/tidal volume 270 (4.8/kilogram)/0.4/14 Labs/studies: Recent Labs 11/14/18 0850 11/13/182219 WBC 15.2* 16.2* HGB 9.3* 10.0* HCT 31.2* 32.4* PLATELET 247 225 NEUTROABS 12.67* 13.88* Recent Labs 11/14/18 0511/13/18 222 NA 143 140 K 4.9 4.9 CL 108* 105 CO2 23 22 BUN 24* 20* CREATININE 1.30* 1.33* Recent Labs 11/13/18 222 AST 30 ALT 16 ALKPHOS 89 BILITOT 0.2 Recent Labs 11/14/1851911/13/182219 CALCIUM 8.3* 8.6 MAGNESIUM -- 0.94 PHOS -- 5.6* Recent Labs 11/13/182219 PT 12.5 PTT 24* No results for input(s): LDH, URICACID in the last 168 hours. ABG (Arterial Blood Gas) Lab Results Component Value Date pH Art 7.21 (CRIT) 11/14/2018 pO2 Art 77 (L) 11/14/2018 pCO2 Art 60 (H) 11/14/2018 Microbiology Results (Last 30 days) Procedure Component Value Units Date/Time Legionella Urinary Antigen [[id number]] Collected: 11/13/180 Lab Status: Final result Specimen: Urine Updated: 11/14/18820 Legionella Urinary Antigen Negative Comment: A negative Legionella Urinary Antigen by EIA suggests no recent or current infection with L. pneumophila Serogroup 1. Antigen may not be present in urine in early infection, and the level of antigen present in the urine may be below the detection limit of the test. Sensitivity: 95% Specificity 95%. Lower Respiratory Culture Bronchial Alveolar Lavage [[id number]] Collected: 11/13/182214 Lab Status: Preliminary result Specimen: Bronchial Alveolar Lavage Updated: 11/14/18837 Gram Stain -- Few Neutrophils seen No squamous epithelial cells Rare mixed bacterial morphotypes suggestive of normal upper respiratory caryn Respiratory Panel PCR [[id number]] (Abnormal) Collected: 11/13/182214 Lab Status: Final result Specimen: Nasopharyngeal Swab Updated: 11/13/18 2350 Resp Panel Source SEAM PRESS OPERATOR Swab Resp Panel PCR Positive Comment: Respiratory Panels are performed on the [employer], using multiplexed PCR nucleic acid detection. Negative results do not preclude respiratory infection and should not be used as the sole basis for diagnosis, treatment or other management decisions. Adenovirus Not Detected Coronavirus HKU1 Not Detected Coronavirus NL63 Not Detected Coronavirus 229E Not Detected Coronavirus OC43 Not Detected Human Metapneumovirus Not Detected Human Rhino/Enterovirus Not Detected Influenza A Not Detected Influenza A H1 Not Detected Influenza A H1-2009 Detected Influenza A H3 Not Detected Influenza B Not Detected Parainfluenza 1 Not Detected Parainfluenza 2 Not Detected Parainfluenza 3 Not Detected Parainfluenza 4 Not Detected Respiratory Syncytial Virus Not Detected Chlamydophila pneumoniae Not Detected Mycoplasma pneumoniae Not Detected 11/13/18 CTA 11/13 1. Diffuse alveolar and interstitial lung opacities could be severe alveolar and interstitial pulmonary edema or atypical infection 2. 2.8 cm left adrenal nodule. If there are no old studies to document stability then CT or MRI adrenal mass protocol could be performed. Results for POPPY PINO ( ) as of 11/14/2018 12:29 Ref. Range 11/13/2018 22:20 11/13/2018 22:21 11/14/2018 01:40 11/14/2018 05:22 11/14/2018 08:50 11/14/2018 10:26 Eosinophils % Latest Units: % 0.0 0.0 Results for POPPY PINO ( ) as of 11/14/2018 12:29 Ref. Range 11/13/2018 22:21 11/14/2018 01:40 11/14/2018 05:22 11/14/2018 10:26 pH Art Latest Ref Range: 7.35 - 7.45 7.22 (CRIT) 7.08 (CRIT) 7.13 (CRIT) 7.21 (CRIT) pCO2 Art Latest Ref Range: 35 - 45 mmHg 53 (H) 77 (CRIT) 71 (CRIT) 60 (H) pO2 Art Latest Ref Range: 85 - 104 mmHg 98 114 (H) 79 (L) 77 (L) HCO3 Art Latest Ref Range: 20.0 - 26.0 mmol/L 21.0 22.4 23.0 23.5 BE Art Latest Ref Range: -3.0 - 3.0 mmol/L -6.7 (L) -7.6 (L) -6.2 (L) -4.3 (L) O2HB Art Latest Ref Range: 94.0 - 97.0 % 95.5 96.0 91.6 (L) 92.7 (L) Results for POPPY PINO ( ) as of 11/14/2018 12:29 Ref. Range 11/13/2018 22:20 ProBNP Latest Ref Range: <=125 pg/mL 2,920 (H) PFT 09/29 FEV1 1.5 / 62 FVC 2.2 FEV1 / FVC 69 / 79 DLCO 16 / 75 TTE [facility] 11/28 Transthoracic Echocardiogram: 1. Left ventricle: the cavity size was normal. Wall thickness was increased in a pattern of mild LVH. Systolic function was normal. The estimated ejection fraction was 60-65%. Wall motion was normal;there were no regional wall motion abnormalities. 2. Right ventricle: the cavity size was at the upper limits of normal. Systolic function was normal. 3. Ventricular septum: the contour showed diastolic flattening and systolic flattening. These changes are consistent with RV volume and RV pressure overload. 4. Left atrium: the atrium was mildly dilated. 5. Tricuspid valve: there was moderate-severe regurgitation 6. Pulmonary arteries: Pulmonary systolic pressure was increased, in the range of 55 mm Hg to 60 mmHg TTE 09/28 1. The left ventricular chamber size is normal. Left ventricular wall thickness is normal. There is normal global left ventricular systolic function. Ejection fraction is estimated to be 65%. There are no left ventricular segmental wall motion abnormalities. Doppler assessment is consistent with normal left sided filling pressure. 2. Right ventricular chamber size, wall thickness, and systolic function are within normal limits. The estimated pulmonary artery systolic pressure is 33 mmHg. 3. The left atrium is normal in size. The right atrium appears normal. There is a possible patent foramen ovale demonstrated by color Doppler IS P/ATIENT CRITICALLY ILL ? Is there a high potential of sudden, clinically significant, or life threatening deterioration? Yes Is there a need for direct personal assessment and management to treat/prevent multiple vital organfailure/deterioration? Yes PATIENT IS CRITICALLY ILL WITH THESE DIAGNOSES BEING MANAGED BY [facility]CS TEAM: ARDs I personally performed 85 minutes [9:50-10:30; 12:15-1:00] of aggregate critical care time exclusive of procedures and teaching. This includes time spent during direct patient evaluation and reassessment, interpreting diagnostic tests, directing life and/or organ supporting interventions and documentation on the unit. Coleman Cummings MD [facility] Clinical Integration Project Managerhigh school social studies teacher [employer] [employer] Rn Picu - ICU/Pulmonary/Critical Care [facility] * Kelly Bermudez MD - 11/14/2018 7:24 AM EDT PGY-1 Progress Note Date: 11/14/18 Patient Information Name: Poppy Pino : 1960 PCP: KIARA Jesus PCP Admit Date: 11/13/2018 Attending: Coleman Cummings MD ID: Poppy Pino is a 58 year old female with past medical history of COPD on home O2 2-3L, IBS, diabetes mellitus, and hypertension presenting as transferred from OSH for ARDS in the setting of Influenza HI 2008 after recently completing a course of TamiFlu and steroids for influenza and COPD exacerbation. Active Problems: COPD exacerbation Subjective/24h Events - Patient admitted, started on the ARDS protocol (not proned) - FiO2 continues to be acidemic with a pH of 7.08 and a pCO2 of 77 Objective Scheduled Meds: ??? oseltamivir 30 mg Oral BID ??? vancomycin 1,250 mg Intravenous Q18H ??? heparin (Porcine) 5,000 Units Subcutaneous Q8H ROSEMARY ??? fentaNYL 25 mcg Intravenous Once And ??? shift total and Settings verification 1 each Intravenous 2 Times Daily - Shift Total ??? ipratropium-albuterol 3 mL Nebulization Q4H ROSEMARY ??? famotidine 20 mg Intravenous Daily ??? piperacillin-tazobactam 3.375 g Intravenous Q8H ??? cisatracurium 10 mg Intravenous Once Continuous Infusions: ??? NORepinephrine 10 mcg/min (11/14/18 0455) ??? cisatracurium (NIMBEX) (standard ADULT) infusion 2 mcg/kg/min (11/14/18 0002) ??? propofol 50 mcg/kg/min (11/14/18539) ??? fentaNYL 300 mcg/hr (11/14/18516) PRN Meds:.Assess AND fentaNYL AND fentaNYL AND fentaNYL AND shift total and Settings verification Last value Range last 24 hrs Temperature Temp: 36.8 ??C (98.2 ??F) Temp: [36.5 ??C (97.7 ??F)-36.8 ??C (98.2 ??F)] Heart Rate Heart Rate: 70 Heart Rate: [61-85] Blood Pressure (arterial) .BP (Arterial Line): 92/51 BP (Arterial Line): (92-102)/(51-56) Blood Pressure BP: 108/67 BP: (69-130)/(42-89) Respiratory Rate Resp: 30 Resp: [22-32] SpO2 SpO2: 95 % SpO2: [72 %-98 %] Ventilator Settings: VC 270cc, RR 30, 50% FiO2, 16 PEEP ABG: ABG (Arterial Blood Gas) Lab Results Component Value Date pH Art 7.08 (CRIT) 11/14/2018 pO2 Art 114 (H) 11/14/2018 pCO2 Art 77 (CRIT) 11/14/2018 Lines: Central Line L subclavian, L radial arterial line, PIV, pena, ETT, OG tube Intake/Output Summary (Last 24 hours) at 11/14/2018 0724 Last data filed at 11/14/2018 0517 Gross per 24 hour Intake 890.27 ml Output 905 ml Net -14.73 ml Patient Vitals for the past 168 hrs: Weight 11/13/18 2252 82.4 kg (181 lb 10.5 oz) Physical Exam GEN: intubated, sedated HEENT/neck: difficult to appreciate JVD Lungs: coarse breath sounds bilaterally particular worse on right heard anteriorly, no wheezes Heart: S1 S2, no murmurs, rubs, or gallops Abdomen: soft, normal bowel sounds, no hepatosplenomegaly Extremities:+2 pitting edema to knees, present peripheral pulses Skin: warm and dry, no rashes Neuro: sedated and intubated ?? Recent Labs 11/13/18 2220 WBC 16.2* HGB 10.0* HCT 32.4* PLATELET 225 Recent Labs 11/14/18 0520 11/13/18 2220 NA 143 140 K 4.9 4.9 CL 108* 105 CO2 23 22 BUN 24* 20* CREATININE 1.30* 1.33* Recent Labs 11/13/18 2220 AST 30 ALT 16 ALKPHOS 89 BILITOT 0.2 Recent Labs 11/14/18 0511/13/18 2220 CALCIUM 8.3* 8.6 MAGNESIUM -- 0.94 PHOS -- 5.6* Recent Labs 11/13/18 222 INR 1.1 PT 12.5 PTT 24* Recent Labs 11/13/18 2220 CK 159 TROPONINT <0.01 Recent Labs 11/14/18 0233 POCGLU 192 Imaging: CXR: Diffuse airspace and interstitial opacities; differential considerations include pneumonia (bacterial, atypical/mycoplasma, viral, pneumocystic), pulmonary edema, ARDS, pulmonary alveolar proteinosis, pulmonary hemorrhage, acute interstitial pneumonia, hypersensitivity or drug induced pneumonitis, among other possible etiologies. ?? Abdomen XR: OG tube tip projects over the fundus, although the side port projects over the apparently region of the gastric cardia; consider slight advancement. ?? Assessment & Plan Poppy Pino is a 58 year old female with past medical history of COPD on home O2 2-3L, IBS, diabetes mellitus, and hypertension presenting as transferred from OSH for ARDS in the setting of Influenza HI 2008 after recently completing a course of TamiFlu and steroids for influenza and COPD exacerbation. ?? She is currently sedated and paralyzed for vent synchrony, she remains acidotic. Will discontinue the propofol in favor of versed and wean down fentanyl as it may cause increased rigidity and thoracic pressure. Will try to wean the levophed, if unable will start vasopressin to help wean off the vasopressin. Will diurese as part of ARDs management ?? Neurologic/Sedation/Analgesia: #Sedated for mechanical ventilation - propofol gtt - d/c - start versed - fentanyl gtt - decrease dose to 50 mcg - cisatracurium for ventilator synchrony ?? Cardiovascular: #Hypotension secondary to sedation - norepinephrine gtt - add vasopressin if unable to wean norepinephrine - hold home antihypertensives ?? #Volume overload - pro BNP 2920 - furosemide 40 mg IV - bicarb supplementation - follow up I/O ?? Respiratory: #Bilateral opacities concerning for ARDS #COPD exacerbation - ARDS ventilator protocol, wean FiO2 to < 60% - f/up sputum culture - duonebs q4 hr - hold steroids in setting of influenza - vancomycin - zosyn ?? GastrointestinalNutrition: - protonix ?? Renal/Electrolytes: Acute kidney injury - Cr 1.3, (Cr 0.86 in 2014) - likely prerenal vs ATN in setting of infectious process - avoid nephrotoxic agents ?? Infectious Disease: #Concern for post-influenza pneumonia - blood cultures - sputum cultures - legionella - vancomycin - zosyn for pseudomonal coverage in COPD exacerbation - respiratory PCR positive for influenza H1-2009 - oseltamivir 30 mg BID (renal adjustment) - d/c per ID recommendation ?? Hematology/Oncology: No active issues ?? Endocrine: #hypothyroid - likely in the setting of infection ?? GI PPx: protonix DVT PPx: enoxaparin Lines: right subclavian central line, left radial arterial line Diet: Tube feeds Code Status: FULL CODE Disposition: ICU Kelly Bermudez MD Internal Medicine Resident, PGY-1 11/14/18 7:24 AM * Trinity Hussein RT - 11/14/2018 3:35 AM EDT AMV Protocol: No ARDS Protocol: Yes CTICU Protocol: No SBT Protocol: Yes SBT: Not performed/Excluded: Acid base imbalance with pH less than 7.20 Vent Settings: Servo I Ventilator Mode: VC Tidal Volume Set: 250 Resp Rate Set: (S) 28 PEEP Set: 16FiO2: (S) 55 % Ventilator Measurements: Resp: 28 Vt Exhaled: 253 PIP: 29 MAP: 19.6 Plateau Press: 29 Ve: 6.9 PEEP: SpO2: 96 % EtCO2: 47 mmHg Airway: 7.0 @ 23 cm at the Gum. Skin Integrity: WDL Nebulized Medications: Albuterol & Ipratroprium Breath Sounds: diminished Secretions: moderate pink thin Assessment / Events / Plan of the Day: Received pt from OSH intubated with a 7.0 ETT. Pt placed on ARDS settings 250(5cc/kg)X22+16 100% ABG @ 7.22/53/98/21. FiO2 decreased to 80% ABG @ 01:40 7.1/77/114/22.4. P/F Ratio 142. RR increased to 28 and FiO2 decreased to 70%. Pt FiO2 weaned to 50% ABG @ 0522 7.13/71/79/23 P/F Ratio 158. PEEP decreased to 14, increased RR to 30 and Vt increased to 270, Plateau pressure 27mmHg. RT Keke * Vivian Valdez Jr., MD - 11/13/2018 6:17 PM EDT Critical Care Attending Daily Progress Note Author VIVIAN VALDEZ JR, MD Date 11/13/2018 I saw and examined this patient in the critical care unit. Active Problems 1. Acute hypoxemic respiratory failure, mechanically ventilated 2. Recent Influenza A respiratory infection 3. ARDS 4. Neuromuscular blockade 5. Chart history of COPD on home O2, GERD, depression, hypertension Physical Exam General Critically ill, sedated, endotracheally intubated and mechanically ventilated Lungs Coarse (B) no wheeze Heart RR no M Abdomen Soft, BS(+) Extremities No C/C/E Neuro RASS -4 Outside hardware R subclavian Pena catheter OG tube Endotracheal tube Vasoactive Infusions n/a Respiratory Support VC R 22 Vt 250 FiO2 1.0 PEEP 16 Imaging CXR / CCT demonstrating multifocal airspace disease, question ARDS, question volume overload, question acute pneumonitis. Background centrilobular emphysema Assessment, Management, and Decision Making 1. Acute hypoxemic respiratory failure in context of recent influenza A respiratory tract infection. Likely ARDS. Will continue with lung protective ventilation strategy: low lung volumes, increased PEEP, goal of achieving FiO2 < 0.60. Maintain euvolemia. Initiate neuromuscular blockade. Low threshold to start prone positioning.. No indication for steroids at this time. 2. Analgesia first approach to sedation: utilizing fentanyl and propofol. Goal RASS -2 to -3 3. Initiate enteral nutritional support 4. Activity as tolerated; passive range of motion at this time 5. Routine ICU prophylaxis 6. Full code, confirmed with who was updated as to the current working diagnosis Is this patient critically ill? Is there a high potential of sudden, clinically significant, or life threatening deterioration? Yes Is there a need for direct personal assessment and management to treat/prevent multiple vital organfailure/deterioration? Yes Patient is critically ill with these diagnoses being managed by the Critical Care Team: ARDs Other COPD (home O2) Pneumonia Viral: Specify suspected or known virus: influenza A Respiratory Failure Acute with hypoxia IPI Certification I certify that I am a [facility] credentialed attending provider with admitting privileges and that the patient meets or has met medical necessity to require an inpatient IPI level of care meeting a minimumof two midnights or is on the [facility] inpatient only procedure list (status C) due to: delivery of critical care services as outlined in assessment and plan above I personally performed 45 minutes of aggregate critical care time exclusive of procedures and teaching. This includes time spent during direct patient evaluation and reassessment, interpreting diagnostic tests, directing life and/or organ supporting interventions and documentation on the unit. --Deyanira Valdez MD documented in this encounter H&P Notes * Natali Kingston - 11/13/2018 7:13 PM EDT Critical Care Admission Note HPI: Poppy Pino is a 58 year old female with past medical history of COPD on home O2 2-3L, IBS, diabetes mellitus, and hypertension presenting as transfer from [facility] for acute hypoxemic and hypercarbic respiratory failure. Patient was diagnosed with influenza on October 30 and received course of Oseltamivir as well levofloxacin and prednisone for concurrent COPD exacerbation following evaluation in [facility]. Patient was clinically improving per her , José Manuel, however still continued to have ongoing cough. Patient was last seen in usual state of health around 9 PM on 11/12 when she went to bed. The following morning, her found her to be somnolent and confused. Patient was taken to [facility] emergency department where was noted to be hypoxic with oxygen saturations in the 70s. CT head was negative for acute process and CTA of chest was concerning for bilateral interstitial opacities concerning for underlying infectious process. Patient was started on vancomycin as concern for post-influenza infection, zosyn, and doxycyline for atypical coverage. After further discussion with patient and family, there was concern that she had ongoing extensive work of breathing while on BiPAP and patient elected to be intubated. Following intubation, she remained sedated on propofol and had a right subclavian central line placed. Additionally, she received 40 mg IV lasix for volume overload. Patient was transferred to [facility] ICU for acute hypoxemic and hypercarbic respiratory failure with concerns for ARDS. Laboratory studies at [facility]: from 0800: WBC: 17.2, Hgb 11.1, Plt 278 Na 135, K 4.1, Cl 98, CO2 19.7, AG 17.3, BUN 27, Cr 1.92 Ca 9.2, Mg 1.3 Tot Pro 7.5, Alb 3.1, TBili 0.5, AST 25, ALT 28, ALP 99 Lipase 77, Ammonia <10 Troponin <0.02 NT-Pro BNP 1106 Urinalysis: pH 5.5, SG 1.01, negative nitrite, Leuk esterase, rare bacteria Toxicology: Salicylate 3.7 Acetaminophen <2 Positive for tricyclics Negative for methadone, barbiturates, amphetamine, benzodiazepine, cocaine, THC ABG 7.34/68/94/19 on FiO2 60% Follow up laboratory studies at 1600: Na 136, K 4.3, Cl 104, CO2 202. AG 11.8, BUN 23, Cr 1.36 ABG 7.20/54/63/21 on FiO2 100% CT Head: No acute intracranial abnormality CTA Chest: 1. Diffuse alveolar and interstitial lung opacities could be severe alveolar and interstitial pulmonary edema or atypical infection 2. 2.8 cm left adrenal nodule. If there are no old studies to document stability then CT or MRI adrenal mass protocol could be performed. Transthoracic Echocardiogram: 1. Left ventricle: the cavity size was normal. Wall thickness was increased in a pattern of mild LVH. Systolic function was normal. The estimated ejection fraction was 60-65%. Wall motion was normal;there were no regional wall motion abnormalities. 2. Right ventricle: the cavity size was at the upper limits of normal. Systolic function was normal. 3. Ventricular septum: the contour showed diastolic flattening and systolic flattening. These changes are consistent with RV volume and RV pressure overload. 4. Left atrium: the atrium was mildly dilated. 5. Tricuspid valve: there was moderate-severe regurgitation 6. Pulmonary arteries: Pulmonary systolic pressure was increased, in the range of 55 mm Hg to 60 mmHg CXR: Endotracheal tube present with tip 4 cm above nicolasa. Nasogastric tube present with tip extending into the stomach. Diffuse bilateral airspace disease ROS: Unable to obtain at this time as patient is intubated and sedated Allergies Allergen Reactions ??? Pneumococcal Vaccine Other (See Comments) Cold/Flu like symptoms ??? Albuterol Other (See Comments) Liquid--Per patient, she gets hyperactivity. ??? Egg Nausea And Vomiting Past Medical History: Past Medical History: Diagnosis Date ??? Allergy liquid abuterol, egg sensitivity ??? Breathing problem im seeing dr zapata ??? Chronic pain ??? Diabetes mellitus 03/19/2016 ??? Digestive problems 12-11 ?? gerd, nutcracker syndrome abdominal gistention dr holder ??? ENT disease 3-[address] alex ??? Headache(784.0) ? Hypertensive disease they have said my bp is running high ??? Skin disorder ?? acne No current facility-administered medications on file prior to encounter. Current Outpatient Medications on File Prior to Encounter Medication Sig Dispense Refill ??? pantoprazole (PROTONIX) 40 mg Tablet, Delayed Release (E.C.) Take 1 tablet by mouth daily. 90 tablet 3 ??? levoFLOXacin (LEVAQUIN) 500 mg Tablet Take [...] 100,000 unit/mL Suspension 4 times daily. ??? oseltamivir (TAMIFLU) 75 mg Capsule Take 1 capsule by mouth daily. For exposure to influenza (Patient not taking: Reported on 10/08/2018) 10 capsule 0 ??? oxyCODONE (ROXICODONE) 10 mg Tablet Take 10 mg by mouth 2 times daily as needed. ??? lisinopril (PRINIVIL;ZESTRIL) 5 mg Tablet daily. ??? Miscellaneous Medical Supply [facility] Face mask for nocturnal O2 (Patient not taking: Reported on 08/21/2017) 1 each PRN ??? guaiFENesin 600 mg Tablet Extended Release 12hr Take 1 tablet by mouth 2 times daily. 60 [id number] ??? baclofen (LIORESAL) 10 mg Tablet Take [...] OXYGEN-AIR DELIVERY SYSTEMS ( CLASSIC OXYGEN CONCENTRATOR [facility]) 3 L by [facility].(Non-Drug; Combo Route) route [...] by Misc.(Non-Drug; Combo Route) route daily. ??? fluticasone (FLONASE) [...] tablet by mouth daily. 90 tablet 3 Social History: Social History Socioeconomic History ??? Marital status: Spouse name: Not on file ??? Number of children: Not on file ??? Years of education: Not on file ??? Highest education level: Not on file Occupational History ??? Not on file Social Needs ??? Financial resource strain: Not on file ??? Food insecurity: Worry: Not on file Inability: Not on file ??? Transportation needs: Medical: Not on file Non-medical: Not on file Tobacco Use ??? Smoking status: Current Every Day Smoker Packs/day: 1.50 Years: 20.00 Pack years: 30.00 Types: Cigarettes ??? Smokeless tobacco: Never Used ??? Tobacco comment: pt would like to speak with someone about quiting. Tobacco cessation packet given Substance and Sexual Activity ??? Alcohol use: No Comment: quit 2011 ??? Drug use: Yes Types: Narcotics Comment: pain meds 3x day ??? Sexual activity: Not on file Comment: question Lifestyle ??? Physical activity: Days per week: Not on file Minutes per session: Not on file ??? Stress: Not on file Relationships ??? Social connections: Talks on phone: Not on file Gets together: Not on file Attends [employer] service: Not on file Active member of club or organization: Not on file Attends meetings of clubs or organizations: Not on file Relationship status: Not on file ??? Intimate partner violence: Fear of current or ex partner: Not on file Emotionally abused: Not on file Physically abused: Not on file Forced sexual activity: Not on file Other Topics Concern ??? Abuse or Threat: Physical, Sexual, Verbal No ??? Abuse or Threat: Help requested by patient No Social History Narrative ??? Not on file Family History Family History Problem Relation Age of Onset ??? Cancer Father ??? Coronary Artery Disease Father ??? Diabetes Father ??? Heart Disease Father ??? High Cholesterol Father ??? Coronary Artery Disease Maternal Grandfather ??? Coronary Artery Disease Mother ?? Physical Exam Temp: [36.8 ??C (98.2 ??F)] Heart Rate: [85] Resp: [24-32] BP: (130)/(89) SpO2: [72 %-96 %] Heart Rate from SpO2: [85 bpm] Ventilator: Volume control PEEP 16 RR 22 TV 250 O2 100% Drips: propofol, fentanyl, norepinephrine GEN: intubated, sedated HEENT/neck: difficult to appreciate JVD Lungs: coarse breath sounds bilaterally particular worse on right heard anteriorly, no wheezes Heart: S1 S2, no murmurs, rubs, or gallops Abdomen: soft, normal bowel sounds, no hepatosplenomegaly Extremities:+2 pitting edema to knees, present peripheral pulses Skin: warm and dry, no rashes Neuro: sedated and intubated ?? Fluid Balance: No intake or output data in the 24 hours ending 11/14/18 0020 ? Last Weight: Patient Vitals for the past 168 hrs: Weight 11/13/18 2252 82.4 kg (181 lb 10.5 oz) Admission Weight: 82.4 kg Laboratory Studies: CBC Lab Results Component Value Date WBC 16.2 (H) 11/13/2018 Hemoglobin 10.0 (L) 11/13/2018 Hematocrit 32.4 (L) 11/13/2018 Platelets 225 11/13/2018 Lab Results Component Value Date NA 140 11/13/2018 K 4.9 11/13/2018 CL 105 11/13/2018 CO2 22 11/13/2018 BUN 20 (H) 11/13/2018 CREATININE 1.33 (H) 11/13/2018 GLUCOSE 92 03/19/2016 GLUCFASTING 195 (H) 11/13/2018 CALCIUM 8.6 11/13/2018 Lab Results Component Value Date NA 140 11/13/2018 K 4.9 11/13/2018 CL 105 11/13/2018 CO2 22 11/13/2018 BUN 20 (H) 11/13/2018 CREATININE 1.33 (H) 11/13/2018 GLUCOSE 92 03/19/2016 GLUCFASTING 195 (H) 11/13/2018 CALCIUM 8.6 11/13/2018 Lab Results Component Value Date ALT 16 11/13/2018 AST 30 11/13/2018 ALKPHOS 89 11/13/2018 BILITOT 0.2 11/13/2018 BILIDIR 0.1 05/26/2012 ALBUMIN 3.1 (L) 11/13/2018 PROT 6.2 11/13/2018 Coags Lab Results Component Value Date INR 1.1 11/13/2018 PT 12.5 11/13/2018 PTT 24 (L) 11/13/2018 LFT's Lab Results Component Value Date Alk Phos 89 11/13/2018 AST 30 11/13/2018 Albumin 3.1 (L) 11/13/2018 Total Bilirubin 0.2 11/13/2018 ALT 16 11/13/2018 Total Protein 6.2 11/13/2018 Lab Results Component Value Date CK 159 11/13/2018 TROPONINT <0.01 11/13/2018 ABG (Arterial Blood Gas) No results found for: PHART, PO2ART, PHQ4WDC Lab Results Component Value Date NEUTROABS 13.88 (H) 11/13/2018 ?? Microbiology: Blood cultures x 2: in process Legionella urinary antigen: in process Lower respiratory culture: in process Respiratory PCR: positive for influenza H1-2009 Radiology/Imaging Studies (Last 24 Hours): CXR: Diffuse airspace and interstitial opacities; differential considerations include pneumonia (bacterial, atypical/mycoplasma, viral, pneumocystic), pulmonary edema, ARDS, pulmonary alveolar proteinosis, pulmonary hemorrhage, acute interstitial pneumonia, hypersensitivity or drug induced pneumonitis, among other possible etiologies. Abdomen XR: OG tube tip projects over the fundus, although the side port projects over the apparently region of the gastric cardia; consider slight advancement. From [facility] on 11/13/18: CT Head: No acute intracranial abnormality CTA Chest: 1. Diffuse alveolar and interstitial lung opacities could be severe alveolar and interstitial pulmonary edema or atypical infection 2. 2.8 cm left adrenal nodule. If there are no old studies to document stability then CT or MRI adrenal mass protocol could be performed. Transthoracic Echocardiogram: 1. Left ventricle: the cavity size was normal. Wall thickness was increased in a pattern of mild LVH. Systolic function was normal. The estimated ejection fraction was 60-65%. Wall motion was normal;there were no regional wall motion abnormalities. 2. Right ventricle: the cavity size was at the upper limits of normal. Systolic function was normal. 3. Ventricular septum: the contour showed diastolic flattening and systolic flattening. These changes are consistent with RV volume and RV pressure overload. 4. Left atrium: the atrium was mildly dilated. 5. Tricuspid valve: there was moderate-severe regurgitation 6. Pulmonary arteries: Pulmonary systolic pressure was increased, in the range of 55 mm Hg to 60 mmHg CXR: Endotracheal tube present with tip 4 cm above nicolasa. Nasogastric tube present with tip extending into the stomach. Diffuse bilateral airspace disease ?? Assessment & Plan Poppy Pino is a 58 year old female with past medical history of COPD on home O2 2-3L, IBS, diabetes mellitus, and hypertension presenting as transfer from [facility] for acute hypoxemic and hypercarbic respiratory failure. Patient presenting with acute hypoxemic and hypercarbic respiratory failure in the setting of recent influenza infection and COPD exacerbation. CXR reveals bilateral diffuse airspace and interstitialopacification concerning for ARDS. She has elevated white cell count and respiratory PCR revealing influenza H1- 2009. Concern that she has ongoing influenza infection with post-influenza pneumonia and will give vancomycin. Additionally, given her recent hospitalization for COPD exacerbation will give zosyn for pseudomonas coverage. Will hold steroid therapy in the setting of severe influenza infection as have potential harm without benefit. Will acquire blood cultures and legionella PCR. CTA did not reveal evidence of pulmonary embolus. Patient appeared volume overloaded on exam and had elevated pro-BNP. Will continue with further diuresis. Patient was hypotensive following additional sedation as she was asynchronous with the ventilator requiring norepinephrine. Will paralyze patient with cisatracurium for vent synchrony and place patient under ARDS protocol with attempts to wean FiO2 to 60%. Neurologic/Sedation/Analgesia: #Sedated for mechanical ventilation - propofol gtt - fentanyl gtt - cisatracurium for ventilator synchrony ?? Cardiovascular: #Hypotension secondary to sedation - norepinephrine gtt - hold home antihypertensives #Volume overload -pro BNP 2920 - furosemide 40 mg IV - follow up I/O - EKG normal sinus rhythm - negative troponin ?? Respiratory: #Bilateral opacities concerning for ARDS #COPD exacerbation - ARDS ventilator protocol, wean FiO2 to < 60% - sputum culture - duonebs q4 hr - hold steroids in setting of influenza - vancomycin - zosyn ?? GastrointestinalNutrition: - Famotidine while on ventilator ?? Renal/Electrolytes: Acute kidney injury - Cr 1.3, (Cr 0.86 in 2013) - likely prerenal vs ATN in setting of infectious process - FEurea 18.5% - avoid nephrotoxic agents ?? Infectious Disease: #Concern for post-influenza pneumonia - blood cultures - sputum cultures - legionella - start vancomycin - start zosyn for pseudomonal coverage in COPD exacerbation - respiratory PCR positive for influenza H1-2009 - oseltamivir 30 mg BID (renal adjustment) - infectious disease consult regarding duration of oseltamivir in setting of ongoing influenza infection following initial therapy Hematology/Oncology: No active issues ?? Endocrine: Follow up thyroid studies ?? GI PPx: famotidine DVT PPx: enoxaparin Lines: right subclavian central line, left radial arterial line Diet: NPO Code Status: FULL CODE - discussed code status with patient's , José Manuel. Family has never discussed patient's wishes. Will remain full code at this time. Disposition: ICU, status pending [facility], PGY2 Critical Care Blue #[id number] 11/14/18 12:20 AM documented in this encounter Procedure Notes * Na Chavez MD - 11/14/2018 1:53 AM EDTProcedure(s): INSERT ARTERIAL LINE Pre-Procedure Diagnose(s): Hypotension, unspecified hypotension type Post-Procedure Diagnose(s): Hypotension, unspecified hypotension type Arterial Line Placement Procedure Note Indication for Procedure: Arterial line was placed for invasive blood pressure monitoring, arterialblood gases and blood sampling for laboratory test. Procedure Diagnosis: ARDS Location of Procedure: Critical Care. Risks and Benefits: The risks and benefits of this procedure were reviewed and informed consent wasobtained. Time Out: Prior to the start of the procedure, the patient's identity, intended procedure, site/side, correct patient positioning and presence of the site jovon was confirmed as applicable. The medical history and chart were reviewed to rule out potential contraindications to the planned procedure. Hand Hygiene: The biodiesel processing technician did perform hand hygiene prior to arterial line insertion. Procedure Prep: Sterile draping was applied. Skin was prepped with chlorhexidine. Procedure Details: A 18 gauge, 0.75 inch catheter was placed in the left radial artery and secured with steri-strips. Tegaderm was applied. Ultrasound was used for guidance. Guide wire was used in this procedure. The guide wire had a diameter of .018 inches. There were 3 attempts. Findings: There were no procedure complications. Blood was drawn with ease. Good wave form. Procedure Comments: 2 attempts at the right radial artery site, able to get a good arterial blood flow but unable to wire the guide wire as it would coil; 2 attempt at the left radial artery which was successful after initial similar good blood flow but coiling of guidewire. Associated attestation - Vivian Valdez Jr., MD - 11/15/2018 10:18 AM EDT ICU Attending I was present during this procedure. --Deyanira Valdez MD documented in this encounter Miscellaneous Notes * Plan of Care - Inge Alvarez RN - 11/25/2018 1:56 AM EDT OUTCOME EVALUATION NOTE: ?? OUTCOME SUMMARY:??Patient is alert and oriented x 4.??No c/o pain. VSS on 2L NC overnight. BG monitoring WNL, insulin coverage given as needed. Adequate UOP, bladder scans WNL??Will continue to monitor and notify team of any changes.? PLAN MOVING FORWARD: Encourage intake I/Os PT/OT Diabetes management Q6 Bladder scans ?? INDIVIDUALIZED FALL PREVENTION INTERVENTIONS: ?? Patient-specific fall risk factors per assessment: [current deficits]:??Generalized weakness ?? Assistance [level of assistance required for transfers and ambulation]:??SBA w/walker ?? Supervision [direct monitoring required during toileting and ADLs]:?Arm's reach ?? Surveillance [continuous indirect monitoring]:?Masimo, room near unit station, call thomas within reach, purposeful rounding, bed alarm ?? Patient-specific fall prevention interventions for sensory deficits provided, if applicable:?n/a ? CPG GOAL OUTCOME EVALUATION:?Ongoing?? * Plan of Care - Jonna Thomas RN - 11/24/2018 3:32 PM EDT Problem: Patient Care Overview Goal: Plan of Care Review Outcome: Ongoing (Interventions Implemented as Appropriate) 11/23/18 1511 11/24/18 0900 Coping/Psychosocial Plan Of Care Reviewed With -- patient Plan of Care Review Progress improving -- OUTCOME EVALUATION NOTE: OUTCOME SUMMARY: A&Ox4. VSS on RA, complains of 5/10 lower back pain, lidocaine patch applied as per orders. FS q4 hours maintained as per orders. Scheduled nebs administered as per orders. at bedside most of day. Patient seen by speech, changed to regular diet as per orders. Bladder scanned as per orders. Plan is for patient to be discharged to rehab tomorrow. Patient able to make needs known, will CTM and notify MD of any changes. PLAN MOVING FORWARD: Encourage ambulation Encourage fluids/foods Monitor skin integrity/wound care FS q4 hours Discharge planning INDIVIDUALIZED FALL PREVENTION INTERVENTIONS: Patient-specific fall risk factors per assessment: [current deficits]: O2 monitor, IV sites, generalized weakness, impulsive at times Assistance [level of assistance required for transfers and ambulation]: 1 assist Supervision [direct monitoring required during toileting and ADLs]: Hands on Surveillance [continuous indirect monitoring]: Masimo, bed alarm, purposeful rounding, room near unit station, call light in reach Patient-specific fall prevention interventions for sensory deficits provided, if applicable: [X] N/A CPG GOAL OUTCOME EVALUATION: * Plan of Care - Jeff Herr - 11/24/2018 1:42 PM EDT Physical Therapy Treatment Treatment Number PT: 2 Pertinent History of Current Problem: 58 y.o. female w/ PMH of COPD on home O2 2-3L, IBS, GERD, diabetes mellitus, and HTN who presented as a transfer from [facility] for acute hypoxemic and hypercarbic respiratory failure and ARDS in the setting of recent influenza infection. Assessment: Pt seen for therapeutic activity. Pt demonstrated decreased activity tolerance, functional mobility and ambulation, and chronic back pain. Please see the flow sheet below for patient details and mobility. Pt would benefit from ongoing physical therapy interventions. Recommend SNF rehab at d/c Staff Mobility Recommendations Progressive walks using walker with one assist Anticipated Discharge Disposition: snf facility Jeff Herr, PT Pager: [phone] Inpatient Physical Therapy 11/24/18 1035 Rehab Evaluation Document Type therapy note (daily note) Total Evaluation Minutes, Physical Therapy 25 Patient Effort good Symptoms Noted During/After Treatment fatigue;shortness of breath (pt rates dyspnea as 5/10 at rest, 7/10 walking) General Information Patient Profile Review yes Patient/Family/Caregiver Comments/Observations I am feeling a lot better, I still think a little rehab would be the best thing before I go home Pertinent History of Current Problem 58 y.o. female w/ PMH of COPD on home O2 2- 3L, IBS, GERD, diabetes mellitus, and HTN who presented as a transfer from [facility] for acute hypoxemic and hypercarbic respiratory failure and ARDS in the setting of recent influenza infection. Treatment Number PT 2 Vital Signs Heart Rate 91 (after walking HR in 100s) SpO2 95 % (95% at rest, dips to 88% after ambulating) Pain Scale/Rating Pain Level 5 Transfer Assessment/Treatment Bed-Chair [place] (Transfers) supervision required [id number] Assistive Device (Transfers) rolling walker [place] (Sit-Stand Transfers) contact guard assist [place] (Stand-Sit Transfers) contact guard assist [id number] Assistive Device (Transfers) rolling walker Comment (Transfers) several reps sit<>stand, with cues and contact guard assist Gait Assessment/Treatment [place] (Gait) contact guard assist Assistive Device (Gait) rolling walker Distance in Feet (Gait) 75 Comment (Gait) slow moving, steady with no LOB [facility] Basic Mobility 5 Click AM-[facility] Mobility 5 Click Completed? Yes Turning from your back to your side while in a flat bed w/o using handrails? 4 - None Standing up from a chair using your arms (e.g. wheelchair, or bedside commode)? 3- A Little Moving from lying on your back to sitting on the side of a flat bed w/o using bedrails? 4 - None Moving to and from a bed to a chair (inclucing a wheelchair) 3- A Little To walk in [facility]? 3 - A Little [facility] Basic Mobility Raw Score 5 item 17 Basic Mobility Standardized T-Scale Score 5 42.42 Basic Mobility 5 CMS 0-100% 35.81 -[facility] Basic Mobility CMS Modifier CJ Balance Skills Training Sitting Balance: Static good balance Sitting Balance: Dynamic good balance Hzb-[id number]-Biysq Balance good balance Standing Balance: Static good balance Standing Balance: Dynamic fair balance Therapeutic Exercise Comment (Therapeutic Exercise) Provided IS and instructed in use. maribel to achieve 1000 mL after several trials Bed Mobility Goal Bed Mobility Goal, Date Established 11/21/18 Bed Mobility Goal, Time to Achieve 30 days Bed Mobility Goal, Activity Type supine to sit/sit to supine Bed Mobility Goal, [place] Level conditional independence Bed Mobility Goal, Date Goal Reviewed 11/24/18 Bed Mobility Goal, Outcome Achieved goal ongoing Gait Training Goal Gait Training Goal, Date Established 11/21/18 Gait Training Goal, Time to Achieve 30 days Gait Training Goal, [place] Level supervision required Gait Training Goal, Assist Device walker, rolling Gait Training Goal, Distance to Achieve >100 Gait Training Goal, Additional Goal Pt to ascend/descend 4 steps with use of railing and LRAD simulating home set up in order to enter and exit her home Gait Training Goal, Date Goal Reviewed 11/24/18 Gait Training Goal, Outcome goal ongoing Transfer Training Goal Transfer Training Goal, Date Established 11/21/18 Transfer Training Goal, Time to Achieve 30 days Transfer Training Goal, Activity Type ibr-cj-yarbq/suznn-hi-hvb;zzy-dv-ijrei/ocwrf-of-cju Transfer Train Goal, [place] Level supervision required Transfer Training Goal, Assist Device walker, rolling Transfer Train Goal, Date Goal Reviewed 11/24/18 Transfer Training Goal, Outcome goal ongoing Clinical Impression Therapy Frequency 2-4 times/wk Anticipated Discharge Disposition snf facility * Plan of Care - Vijay Powers STRIPING MACHINE OPERATOR - 11/24/2018 9:33 AM EDT Speech-Language Pathology Progress Note 11/24/2018 9:33 AM Total Evaluation Minutes, Speech Language Pathology: 24 Total Timed Code Treatment: 0 min. S: Pt is much more interactive. Improved response time. Appears much stronger. Pt denies pain with treatment. O: ?? Tolerating puree diet with thin liquids. ?? Limited dentition noted. Pt reports no dentures at baseline. ?? PO trials conducted with solids and thin liquids. Oral: Functional mastication with increased time. Negative labial loss. Functional bolus formulation and oral transit. Negative oral stasis. Pharyngeal: Timely initiation. Without cough and without change in vocal quality following swallows. No report of solids getting stuck in throat. A: Tolerating puree diet and thin liquids. Now that pt is generally stronger, pt is able to masticate solids despite significantly reduced dentition. No signs of aspiration with solids. Below recommendations are made. Will follow-up for diet tolerance. P: Therapy Frequency: 2-3 times/wk Pt/family are in agreement with plan. RECOMMENDATIONS: ?? Regular texture diet and thin liquids. ?? Upright to feed. ?? Medications whole with water. VIJAY POWERS, STRIPING MACHINE OPERATOR, MS, CCC-STRIPING MACHINE OPERATOR Speech-Language Pathologist Rehabilitation Medicine Pager #[phone] * Plan of Care - Inge Alvarez RN - 11/24/2018 2:45 AM EDT OUTCOME EVALUATION NOTE: ?? OUTCOME SUMMARY:??Patient is alert and oriented x 4. No c/o pain. Pressures soft at times, otherwise VSS. Sats >92% on 2L NC overnight. BG monitoring WNL, insulin coverage given as needed. Adequate UOP, bladder scans WNL Will continue to monitor and notify team of any changes.? PLAN MOVING FORWARD: Encourage intake I/Os PT/OT Diabetes management Speech Q6 Bladder scans ?? INDIVIDUALIZED FALL PREVENTION INTERVENTIONS: ?? Patient-specific fall risk factors per assessment: [current deficits]:??Generalized weakness ?? Assistance [level of assistance required for transfers and ambulation]:??SBA w/walker ?? Supervision [direct monitoring required during toileting and ADLs]:?Arm's reach ?? Surveillance [continuous indirect monitoring]:?Masimo, room near unit station, call thomas within reach, purposeful rounding, bed alarm ?? Patient-specific fall prevention interventions for sensory deficits provided, if applicable:?n/a ? CPG GOAL OUTCOME EVALUATION:?Ongoing * Plan of Care - Lizbet Diaz RN - 11/23/2018 3:17 PM EDT Problem: Patient Care Overview Goal: Plan of Care Review Outcome: Ongoing (Interventions Implemented as Appropriate) 11/23/18 1511 Coping/Psychosocial Plan Of Care Reviewed With patient Plan of Care Review Progress improving OUTCOME EVALUATION NOTE: OUTCOME SUMMARY: Pt much stronger today, ambulating in room w SBA and tolerating well. VSS on RA, but wearing 1L when sleeping. Up in chair for meals. Pena d/c'd and voiding. C/o urgency when need to move her bowelsand loose stool. PRN lomotil given. Eating well, however does not like pureed food, speech to re-eval tmrw. No other new complaints and no acute events. WCTM and notify team of any changes. PLAN MOVING FORWARD: PT/OT STRIPING MACHINE OPERATOR Encourage PO Bladder scan q6h D/c planning INDIVIDUALIZED FALL PREVENTION INTERVENTIONS: Patient-specific fall risk factors per assessment: [current deficits]: Generalized weakness, IV, O2sat monitor, O2 tubing Assistance [level of assistance required for transfers and ambulation]: SBA Supervision [direct monitoring required during toileting and ADLs]: Eyes on Surveillance [continuous indirect monitoring]: Masimo, purposeful rounding, room near nurses station Patient-specific fall prevention interventions for sensory deficits provided, if applicable: na CPG GOAL OUTCOME EVALUATION: ongoing * Plan of Care - Inge Alvarez RN - 11/23/2018 3:00 AM EDT OUTCOME EVALUATION NOTE: ?? OUTCOME SUMMARY: Patient is alert and oriented x 4. No c/o pain. Bp's remain soft, otherwise VSS. Sats >92% on 1L NC. BG monitoring WNL, no requirement for supplemental insulin. Pena intact and draining adequate amounts of urine. Will continue to monitor and notify team of any changes. ?? PLAN MOVING FORWARD: Encourage intake I/Os PT/OT Diabetes management Speech ?? INDIVIDUALIZED FALL PREVENTION INTERVENTIONS: ?? Patient-specific fall risk factors per assessment: [current deficits]: Generalized weakness ?? Assistance [level of assistance required for transfers and ambulation]: SBA w/walker ?? Supervision [direct monitoring required during toileting and ADLs]: Hands on ?? Surveillance [continuous indirect monitoring]: Masimo, room near unit station, call thomas within reach, purposeful rounding, bed alarm ?? Patient-specific fall prevention interventions for sensory deficits provided, if applicable: n/a ? CPG GOAL OUTCOME EVALUATION: Ongoing * Plan of Care - Lizbet Diaz RN - 11/22/2018 2:10 PM EDT Problem: Patient Care Overview Goal: Plan of Care Review Outcome: Ongoing (Interventions Implemented as Appropriate) 11/22/18 1406 Coping/Psychosocial Plan Of Care Reviewed With patient;spouse Plan of Care Review Progress improving OUTCOME EVALUATION NOTE: OUTCOME SUMMARY: Pt calm and cooperative, up to chair for breakfast and lunch. Reports feeling better & has beenmuch more alert. Pt was able to eat >50% of breakfast and lunch. BPs remain soft, bolus given. O2 requirement increased when napping, sat down to mid 80s. Pt recovered on 5L, now stable on 2L. Pena w low output, but draining w out issue. Incontinent of bowel x1. No acute events. WCTM and notify team of any changes. PLAN MOVING FORWARD: PT/OT Monitor O2 requirement BP mgmt INDIVIDUALIZED FALL PREVENTION INTERVENTIONS: Patient-specific fall risk factors per assessment: [current deficits]: O2 tubing, deconditioned, O2sat monitor, IV Assistance [level of assistance required for transfers and ambulation]: 1-2 assist w walker Supervision [direct monitoring required during toileting and ADLs]: Hands on Surveillance [continuous indirect monitoring]: Masimo, purposeful rounding, room near nurses station Patient-specific fall prevention interventions for sensory deficits provided, if applicable: na CPG GOAL OUTCOME EVALUATION: ongoing * Plan of Care - Inge Alvarez RN - 11/22/2018 4:18 AM EDT OUTCOME EVALUATION NOTE: OUTCOME SUMMARY: Patient is alert and oriented x 4, very lethargic and difficult to arouse but ableto answer questions. No c/o pain. Bp's soft, see docflow, 4400 pgr. notified, and given fluid bolusper MAR orders. Sats >92% on 2L NC. BG monitoring WNL, insulin given per MAR orders. Inadequate UOP overnight, 4400 pgr. aware. Heavy 2 assist stand and pivot from bed to commode. Will continue to monitor and notify team of any changes. PLAN MOVING FORWARD: Encourage intake I/Os PT/OT Diabetes management Speech INDIVIDUALIZED FALL PREVENTION INTERVENTIONS: Patient-specific fall risk factors per assessment: [current deficits]: Generalized weakness, lethargic, IV tubing Assistance [level of assistance required for transfers and ambulation]: Heavy 2a w/walker Supervision [direct monitoring required during toileting and ADLs]: Hands on Surveillance [continuous indirect monitoring]: Masimo, room near unit station, call thomas within reach, purposeful rounding, bed alarm Patient-specific fall prevention interventions for sensory deficits provided, if applicable: n/a CPG GOAL OUTCOME EVALUATION: Ongoing * Plan of Care - Jonna Thomas RN - 11/21/2018 6:13 PM EDT Problem: Patient Care Overview Goal: Plan of Care Review Outcome: Ongoing (Interventions Implemented as Appropriate) 11/19/18 1643 11/21/18 1313 Coping/Psychosocial Plan Of Care Reviewed With -- patient Plan of Care Review Progress progress toward functional goals as expected -- OUTCOME EVALUATION NOTE: OUTCOME SUMMARY: Patient alert and oriented, but intermittently lethargic throughout shift, drooling, apparently this is baseline. VSS on 1.5-2L NC, sats in mid 90s, denies pain. FS maintained q4 hours, no insulin coverage needed as per orders. Wound care consulted today, blister on R buttocks, redness blanchable, mepilex covering blister. Preventative mepilex over both elbows and sacrum. Speech consulted with patient today, recommended pureed diet through weekend. PT/OT worked with patient today. Patient up to chair, 2 assist with walker. at bedside most of day. Scheduled meds administered as per orders. Pena draining clear yellow urine, see doc flows for output. Patient able to make needs known, will CTM and notify MD of any changes. PLAN MOVING FORWARD: FS q4 hours Wound care Speech consults Up to chair PT/OT Encourage ambulation Encourage foods/fluids INDIVIDUALIZED FALL PREVENTION INTERVENTIONS: Patient-specific fall risk factors per assessment: [current deficits]: IV site, O2 monitor/tubing, generalized weakness, lethargic Assistance [level of assistance required for transfers and ambulation]: 2 assist with walker Supervision [direct monitoring required during toileting and ADLs]: Hands on Surveillance [continuous indirect monitoring]: Masimo, bed/chair alarm, purposeful rounding, room near unit station, call light in reach Patient-specific fall prevention interventions for sensory deficits provided, if applicable: [X] N/A CPG GOAL OUTCOME EVALUATION: * Plan of Care - Leelee Sinclair OT - 11/21/2018 1:40 PM EDT Occupational Therapy Evaluation Pertinent History of Current Problem: Poppy Pino is a 58 y.o. female w/ PMH of COPD on home O22-3L, IBS, GERD, diabetes mellitus, and HTN who presented as a transfer from [facility] for acute hypoxemic and hypercarbic respiratory failure and ARDS in the setting of recent influenza infection. Precautions/Restrictions: fall, oxygen therapy device and L/min Precautions Comments: Up with assist, droplet precautions Assessment: Pt has been seen for occupational therapy evaluation, please refer to associated flowsheet data listed below for details. Poppy Pino presents with the following performance skill deficits and client factors: generalized weakness, decreased ROM, impaired coordination, impaired balance and postural control, and decreased activity tolerance. These performance deficits have led to activity limitations and participation restrictions in the following areas of occupation: dressing, bathing, grooming, toileting, self-feeding, mobility, transfers, home management, roles/routines, leisure, driving, community mobility, communication, and social participation. Pt presented as lethargicand cooperative with increased alertness over time when sitting upright. She was motivated to participate despite fatigue and generalized weakness. Pt required min assist of 2 for supine to sit transfer and fatigued quickly with simple task of washing her face while seated EOB requiring mod assist to complete the task. Pt stood with moderate assist using a gait belt for toilet hygiene. She took a seated rest break after approximately 2 minutes of standing and then transferred bed to chair with min assist of 2. Pt was set up for self feeding and was able to lift UEs with noted difficulty managing sustained position against gravity and fine motor skills required for self feeding. Pt's husbandarrived during the evaluation and was agreeable to assist Pt with self feeding as needed. Anticipate Pt will require a short inpatient rehab stay when medically ready for discharge for return to prior level of functioning. Pt would benefit from further inpatient OT interventions to address performance deficits and maximize participation and independence with occupations of daily living. Staff Recommendations: Encourage OOB activity (min assist of 2 stand pivot) and participation in all self care tasks. Anticipated Discharge Disposition: inpatient rehabilitation facility Pager: [phone] Leelee Sinclair OT 11/22/2018 Occupational Therapy Rehabilitation Department 11/21/18 3960 Rehab Evaluation Document Type evaluation Total Evaluation Minutes, Occupational Therapy 25 Patient Effort good Symptoms Noted During/After Treatment fatigue General Information Patient Profile Review yes Patient/Family/Caregiver Comments/Observations Pt stated it's been 2 weeks after looking at the date on the white board. General Observations of Patient Pt was resting in bed and was willing to wake to participate. Pertinent History of Current Problem Poppy Pino is a 58 y.o. female w/ PMH of COPD on home O2 2-3L, IBS, GERD, diabetes mellitus, and HTN who presented as a transfer from [facility] for acute hypoxemic and hypercarbic respiratory failure and ARDS in the setting of recent influenza infection. Hearing Precautions/Limitations WFL Precautions/Restrictions fall;oxygen therapy device and L/min Precautions Comments Up with assist, droplet precautions Limitations/Impairments other (see comments) (diffuse global weakness) Treatment Number OT 1 Living Environment Patient population Adult Living Environment Living Environment Comment Pt lives with her in a mobile home with 4 ARELI. The bathroom has a tub shower. Functional Level Prior Prior Functional Level Comment Pt was independent with ADLs prior to admission She has a FWW and reportedly uses it occasionally. Vital Signs Heart Rate 95 SpO2 95 % O2 Flow Rate (L/min) 2 L/min O2 Device NC Cognitive Assessment Interventions Behavior/Mood Observations (Cognitive) lethargic;cooperative Orientation Status (Cognitive) oriented x 4 Attention (Cognitive) difficult dividing attention Follows Commands/Answers Questions (Cognitive) able to follow single-step instructions;needs cueing;needs increased time Pain Scale/Rating Pain Assessment Scale Word (verbal rating pain scale) Pain Level 0 (none reported) ROM (Range of Motion) General Range of Motion Detail Bilateral UE AROM limited by generalized weakness. Bed Mobility Assessment/Treatment Impairments (Bed Mobility) strength decreased;ROM (range of motion) decreased;flexibility decreased;coordination impaired [id number]-nd-Wqp [place] (Bed Mobility) minimum assist (75% patient effort);2 person assist required;verbal cues required Assistive Device (Bed Mobility) other (see comments) (HOB slightly elevated) Transfer Assessment/Treatment [place] (Sit-Stand Transfers) moderate assist (50% patient effort);verbal cues required [place] (Stand-Sit Transfers) minimum assist (75% patient effort);verbal cues required Ucy-Rgyxr-Pdx Assistive Device (Transfers) rolling walker Impairments (Transfers) strength decreased;ROM (range of motion) decreased;postural control impaired;balance impaired Jxt-Ttepb-Oms Assistive Device (Transfers) rolling walker;gait belt Bed-Chair [place] (Transfers) minimum assist (75% patient effort);2 person assist required;verbal cues required Toileting Assessment/Training Position (Toileting) sitting;standing [place] Level (Toileting) maximum assist (25% patient effort) Impairments (Toileting) strength decreased;ROM (range of motion) decreased;postural control impaired;flexibility decreased;coordination impaired;balance impaired;other (see comments) (decreased activity tolerance) Comment (Toileting) Pt stood with mod assist for toilet hygiene using the bed to brace herself for prolonged standing. Pt was incontinent and required max assist for hygiene tasks. Grooming Assessment/Training Position (Grooming) sitting [place] Level (Grooming) verbal cues required;moderate assist (50% patient effort) Impairments (Grooming) strength decreased;ROM (range of motion) decreased;coordination impaired;other (see comments) (activity tolerance decreased) Comment (Grooming) Pt fatigued with tasks of washing her face seated EOB and required mod assist tocomplete the task. Self-Feeding Assessment/Training Position (Self-Feeding) supported sitting [place] Level (Self-Feeding) moderate assist (50% patient effort) Impairments (Self-Feeding) strength decreased;ROM (range of motion) decreased;coordination impaired;other (see comments) (activity tolerance decreased) Plan of Care Review Plan Of Care Reviewed With patient Occupational Therapy Goal Types Occupational Therapy Goal Types Eating Self-Feeding Goal (Group);Grooming Goal (Group);Toileting Goal (Group);LB Dressing Goal (Group);Occupational Therapy Goal (Group) Eating Self-Feeding Goal Eat Self Feeding Goal, Date Established 11/21/18 Eat Self Feeding Goal, Time to Achieve 2 wks Eat Self Feeding Goal, Activity Type Pt will be conditionally independent with self feeding after set up. Eat Self Feeding Goal, Outcome goal ongoing Grooming Goal Grooming Goal, Date Established 11/21/18 Grooming Goal, Time to Achieve 2 wks Grooming Goal, Activity Type Pt will complete 2 grooming tasks seated in bathroom with supervision assist. Grooming Goal, Outcome goal ongoing Toileting Goal Toileting Goal, Date Established 11/21/18 Toileting Goal, Time to Achieve 2 wks Toileting Goal, Activity Type Pt will complete toileting routine including transfer with supervision assist using least restrictive AD. Toileting Goal, Outcome goal ongoing LB Dressing Goal LB Dressing Goal, Date Established 11/21/18 LB Dressing Goal, Time to Achieve 2 wks LB Dressing Goal, Activity Type Pt will complete LB dressing with supervision assist using AE as needed. LB Dressing Goal, Outcome goal ongoing Occupational Therapy Goal OT Goal, Date Established 11/21/18 OT Goal, Time to Achieve 2 wks OT Goal, Activity Type Pt will complete functional mobility of a household distance with supervision assist for participation in ADLs. OT Goal, Additional Goal Pt will participate in UE strength/ROM/coordination exercises as appropriate for improved participation in daily tasks. OT Goal, Outcome goal ongoing Clinical Impression Criteria for Skilled Therapeutic Interventions Met yes;treatment indicated Therapy Frequency 2-4 times/wk Anticipated Equipment Needs at Discharge other (see comments) (TBD) Anticipated Discharge Disposition inpatient rehabilitation facility General Therapy Interventions Additional Documentation Planned Therapy Interventions (Group) Planned Therapy Interventions ADL retraining;IADL retraining;balance training;bed mobility training;fine motor coordination training;neuromuscular re-education;ROM (range of motion);strengthening;transfer training 2016 OT Evaluation Code Rationale: ?? Diagnosis & Pertinent Co-Morbidities affecting Plan of Care: see PMHx ?? Occupational Profile & Client History: Brief Expanded Extensive X ?? Assessment of Occupational Performance: 1-3 performance deficits 3-5 performance deficits 5 + performance deficits X ?? Clinical Decision Making: Low Moderate High X Clinical decision making of high complexity using standardized patient assessment instrument and measurable assessment of functional outcome. * Plan of Care - Sanaz Wolff, PT - 11/21/2018 1:13 PM EDT Physical Therapy Evaluation Pertinent History of Current Problem: Per MD: Poppy Pino is a 58 y.o. female w/ PMH of COPD onhome O2 2-3L, IBS, GERD, diabetes mellitus, and HTN who presented as a transfer from [facility] for acutehypoxemic and hypercarbic respiratory failure and ARDS in the setting of recent influenza infection. Precautions/Restrictions: fall, oxygen therapy device and L/min Precautions Comments: 2L NC, Full code, AAT, Up with assist, Droplet precautions Assessment: Pt seen for physical therapy evaluation. Pt presents with the following impairments/limitations that have led to limitations and restrictions in regard to their functional mobility and independence: aerobic capacity/endurance;anthropometric characteristics;arousal, attention, and cognition;ergonomics and body mechanics;gait, locomotion, and balance;integumentary integrity;joint integrity and mobility;muscle performance;posture;ROM (range of motion);ventilation and respiration/gas exc hange. Pt limited this date by fatigue, somnolence, and lethargy. Pt slightly impulsive this visit yet redirectable. Upon arrival, pt extremely somnolent and unable to answer questions, HOB elevated and pt assisted to EOB and became more alert. Pt attempted to stand 2x prior to having chair/FWW setup, yet redirectable with verbal and tactile cueing. Pt performed transfers with min assistx1-2 andFWW requiring cues to not sit prior to squaring up to chair. Pt is well below her functional mobility baseline and would benefit greatly from a rehab stay after d/c. Pt was left sitting up in chair, alarm on, call thomas and all necessities within reach. Please see associated flow sheet data below for objective information regarding today's session. Staff Mobility Recommendations: 2 assist with FWW. Please encourage pt to get OOB to chair 3x/day Anticipated Discharge Disposition: inpatient rehabilitation facility Sanaz Wolff PT, DPT Pager: [phone] Inpatient Physical Therapy 2017 PT Evaluation Code Rationale: ?? Diagnosis & Pertinent Co-Morbidities, personal factors, and present illness affecting Plan of Care: Patient Active Problem List Diagnosis Code ??? [...] J44.9, J98.4 ??? Influenza vaccination contraindicated Z28.09 ??? ARDS (adult respiratory distress syndrome) J80 ??? Shock R57.9 ??? ANGE (acute kidney injury) N17.9 Additional personal factors or co-morbidities that impact plan: ?? Total # of Factors: 0 1-2 3+ X ?? Examination of body system impairments, functional limitations and behaviors, and/or participation restrictions. Addressing 1-2 elements Addressing 3 + elements Addressing 4 + elements X ?? Clinical presentation: See assessment above. Stable/Uncomplicated Evolving/Fluctuating Symptoms Unstable/Unpredictable X ?? Clinical decision making of moderate complexity based on pt's functional performance as outlinedin this evaluation. 11/21/18 1313 Rehab Evaluation Document Type evaluation Total Evaluation Minutes, Physical Therapy 24 (eval) Patient Effort good Symptoms Noted During/After Treatment fatigue (lethargy) General Information Patient Profile Review yes Patient/Family/Caregiver Comments/Observations I am just tired. General Observations of Patient Pt initially supine in bed, agreeable to participate. Pertinent History of Current Problem Per MD: Poppy Pino is a 58 y.o. female w/ PMH of COPD on home O2 2-3L, IBS, GERD, diabetes mellitus, and HTN who presented as a transfer from [facility] for acute hypoxemic and hypercarbic respiratory failure and ARDS in the setting of recent influenza infection. Precautions/Restrictions fall;oxygen therapy device and L/min Precautions Comments 2L NC, Full code, AAT, Up with assist, Droplet precautions Treatment Number PT 1 Living Environment Patient population Adult Living Environment Living Environment Comment Pt reports that she lives with her in a mobile home with 4 ARELI. It is all one level, tub shower no seat. Functional Level Prior Prior Functional Level Comment Pt was independent prior to admission, has a FWW, uses it occassionally Vital Signs SpO2 95 % O2 Flow Rate (L/min) 2 L/min O2 Device NC Pain Scale/Rating Pain Level (pt had no c/o pain) ROM (Range of Motion) Additional Documentation General Assessment (Group) General Range of Motion Detail BLE Grossly WFL MMT (Manual Muscle Testing) Additional Documentation General Assessment (Group) General Manual Muscle Testing Assessment Detail generalized weakness, deconditioned Mobility Assessment/Training Additional Documentation Bed Mobility Assessment/Treatment (Group);Transfer Assessment/Treatment (Group) Bed Mobility Assessment/Treatment Assistive Device (Bed Mobility) (HOB slightly elevated) Nvmzir-fi-Zol [place] (Bed Mobility) minimum assist (75% patient effort);2 person assist required;verbal cues required Impairments (Bed Mobility) balance impaired;flexibility decreased;ROM (range of motion) decreased;strength decreased Comment (Bed Mobility) Pt came to EOB with increasd time, able to sit EOB with UE support. No c.o dizziness or SOB Transfer Assessment/Treatment Bed-Chair [place] (Transfers) minimum assist (75% patient effort);2 person assist required;verbal cues required Qws-Pymnv-Zxw Assistive Device (Transfers) rolling walker;gait belt [place] (Sit-Stand Transfers) minimum assist (75% patient effort);verbal cues required [place] (Stand-Sit Transfers) minimum assist (75% patient effort);verbal cues required Qnc-Zvfvv-Dgk Assistive Device (Transfers) rolling walker Impairments (Transfers) balance impaired;flexibility decreased;strength decreased Comment (Transfers) Pt performed 2 sit<>stand with FWW, cues for hand placement and use UE for support. Pt stood and required total assist for reinaldo care, had one rest break than transferred from bed>chair with FWW and 2 assist Motor Skills/Interventions Additional Documentation Balance Skills Training (Group) Balance Skills Training Sitting Balance: Static good balance Sitting Balance: Dynamic fair balance Bzb-eh-Ejblr Balance fair balance Standing Balance: Static fair balance Standing Balance: Dynamic poor balance Plan of Care Review Plan Of Care Reviewed With patient Physical Therapy Goal Types Physical Therapy Goal Types Bed Mobility Goal (Group);Gait Training Goal (Group);Transfer Training Goal (Group) Bed Mobility Goal Bed Mobility Goal, Date Established 11/21/18 Bed Mobility Goal, Time to Achieve 30 days Bed Mobility Goal, Activity Type supine to sit/sit to supine Bed Mobility Goal, [place] Level conditional independence Gait Training Goal Gait Training Goal, Date Established 11/21/18 Gait Training Goal, Time to Achieve 30 days Gait Training Goal, [place] Level supervision required Gait Training Goal, Assist Device walker, rolling (or LRAD) Gait Training Goal, Distance to Achieve >100 Gait Training Goal, Additional Goal Pt to ascend/descend 4 steps with use of railing and LRAD simulating home set up in order to enter and exit her home Transfer Training Goal Transfer Training Goal, Date Established 11/21/18 Transfer Training Goal, Time to Achieve 30 days Transfer Training Goal, Activity Type aod-ec-xmyre/caush-ad-gsu;wfo-wd-zbfjl/bzjka-kp-usj Transfer Train Goal, [place] Level supervision required Transfer Training Goal, Assist Device walker, rolling (or LRAD) Clinical Impression Impairments Found (describe specific impairments) aerobic capacity/endurance;anthropometric characteristics;arousal, attention, and cognition;ergonomics and body mechanics;gait, locomotion, and balanc e;integumentary integrity;joint integrity and mobility;muscle performance;posture;ROM (range of motion);ventilation and respiration/gas exchange Therapy Frequency 2-4 times/wk Anticipated Equipment Needs at Discharge (TBD, pt has FWW) Anticipated Discharge Disposition inpatient rehabilitation facility General Interventions Additional Documentation Planned Therapy Interventions (Group) Planned Therapy Interventions balance training;bed mobility training;gait training;home exercise program;patient/family education;ROM (range of motion);stair training;strengthening;stretching;transfer training * Plan of Care - Vijay Powers, STRIPING MACHINE OPERATOR - 11/21/2018 10:04 AM EDT Speech-Language Pathology Progress Note 11/21/2018 10:04 AM Total Evaluation Minutes, Speech Language Pathology: 24 Total Timed Code Treatment: 0 min. S: Pt is more alert. Responses are more timely. Sitting on edge of bed upon entering room. Improving UE movement. Pt denies pain with treatment. O: ?? Currently on a puree diet and thin liquids. ?? Nursing reports no difficulty with current diet. ?? PO trials conducted with thin liquids by straw. Pt declined trials of soft solids today due to anticipated difficulty with mastication as was observed yesterday. Oral: Good draw on straw. Functional bolus formulation and oral transit. Negative labial loss. Negative oral stasis. Pharyngeal: Slight initiation delay. Functional laryngeal elevation to palpation. Without cough andwithout change in vocal quality following swallows. A: Tolerating puree diet and thin liquids. Pt declined trials of soft solids due to anticipated difficulty chewing and agreeable to remaining on puree diet for now. Below recommendations continue to be appropriate. P: Therapy Frequency: 2-3 times/wk Pt/family are in agreement with plan. RECOMMENDATIONS: ?? Continue Puree diet with thin liquids. ?? Upright to feed. ?? Medications whole in applesauce or with water. VIJAY POWERS, STRIPING MACHINE OPERATOR, MS, CCC-STRIPING MACHINE OPERATOR Speech-Language Pathologist Rehabilitation Medicine Pager #[phone] * Consult Note - Puja Colindres RN - 11/21/2018 9:03 AM EDT Certified Wound Care Nurse Note Situation: Asked to see Poppy Pino by nursing for right buttock open blister. Background: eD-H notes reviewed for history, admitting diagnosis and active problem list. Wound Assessment and Care Provided: RN at bedside for assessment. Purpose of visit explained and patient verbalized acceptance of assessment. Patient sitting at edge of bed. With assist of one, patient assisted to lying position. Mepilex Sacrum peeled back, skin toned intact and blanchable. Right buttock with circular epidermal skin loss with blanchable pink wound bed roughly 0.5x0.5x0.05. No bony prominence appreciated on palpation. Cleansed with saf clens wound cleanser and mepilex border reapplied. Yusef Score: 13 Current bed: [facility] Assessment: Unclear etiology of partial thickness tissue loss to right buttock, however it does danyel and no bony prominence is appreciated which appears that pressure is not involved. Possible friction as the cause, as the patient is an assist of one. Will monitor for evolution. Wound Care Recommendations: Right Buttock: Mepilex Border dressing-nursing to change every 3 days and as needed for dressing with 50% or greater strike though drainage. : 1. Cleanse wound with dermal wound cleanser and gauze. 2. Apply Mepilex Border dressing Mobility: Turn and reposition every 2 hours and document in ED-H. Place a pillow above and below sacral area to off load pressure to the sacrum Offload pressure from heels by placing pillows lengthwise beneath legs while in bed. Offload pressure from heels by adjusting length of foot of bed. Activity: Implement reminder system for repositioning every two hours while in bed Limit time OOB to the chair to 2 hour intervals. Use a [employer] chair cushion beneath patient at all times while in the chair. Reinforce teaching to shift weight every 15 minutes while in the chair. Following hospital standard for pressure ulcer prevention and skin care. Refer to adult/pediatric pressure ulcer prevention job aid in the clinical policy library. Wound Care Team will plan to follow: weekly. Discussed plan with: RN: Jonna Please contact Puja Colindres RN on pager [phone] or the wound care team at [phone] or pager [phone] with skin and wound care concerns or questions. * Plan of Care - Kerry Nina R - 11/21/2018 2:40 AM EDT OUTCOME EVALUATION NOTE: OUTCOME SUMMARY: Pt A&O x4 and able to hold a conversation but with delayed, slow speech. VSS, tachypnea at times, afebrile. On 2L O2 NC, which is baseline at home. Pt has minor expiratory wheezes and a productive cough. Incontinent of stool x1. Minimal urine output during shift, 250ml or nery colored urine. Team notified. Flushed per MD request. No resistance met, irrigation return, light yellow and clear. pt reported no pain. Requested a wound consult for small blister on right buttock. No acute events over night. Will ctm and notify team of any changes. PLAN MOVING FORWARD: Wound care Encouraged PO intake Monitor output INDIVIDUALIZED FALL PREVENTION INTERVENTIONS: Patient-specific fall risk factors per assessment: [current deficits]: O2 tubing, deconditioning, unfamiliar environment Assistance [level of assistance required for transfers and ambulation]: 2 assist Supervision [direct monitoring required during toileting and ADLs]: Hands on Surveillance [continuous indirect monitoring]: Purposeful rounding, close to nurses station, [facility] Patient-specific fall prevention interventions for sensory deficits provided, if applicable: [X] N/A CPG GOAL OUTCOME EVALUATION: * Plan of Care - Vijay Powers, STRIPING MACHINE OPERATOR - 11/20/2018 10:09 AM EDT Speech-Language Pathology Bedside Swallow Evaluation 11/20/2018 10:09 AM 1960 Total Evaluation Minutes, Speech Language Pathology: 35 Total Timed Code Treatment: 0 min. Hospital Course: Order received. Pt. is Poppy Pino is a 58 y.o. female admitted on 11/13/2018. Pt has a history of past medical history of COPD on home O2 2-3L, IBS, diabetes mellitus, and hypertension. Transferred from [facility] for ARDS in the setting of Influenza HI 2008 after recently completing a course of TamiFlu and steroids for influenza and COPD exacerbation. Past Medical history: Past Medical History: Diagnosis Date ??? Allergy liquid abuterol, egg sensitivity ??? Breathing problem im seeing dr zapata ??? Chronic pain ??? Diabetes mellitus 03/19/2016 ??? Digestive problems -11 ?? gerd, nutcracker syndrome abdominal gistention dr holder ??? ENT disease 3-[address] alex ??? Headache(784.0) ? Hypertensive disease they have said my bp is running high ??? Skin disorder ?? acne S: Pt. contacted, alert. HOB elevated to approximately 60 degrees. Pt. denies pain at this time. O: Current diet: NPO Respiratory Status: Currently on 2 liters NC and saturating at 96%. Feeding / Oral Care Status: Dependent. Oral / Laryngeal Mechanism Clinical Assessment: Lingual: Functional lingual ROM. Labial: Adequate labial seal. Adequate retraction, however ? Pt's overall effort during this part of evaluation. Vocal fold function and airway protection: Vocal quality is clear. Cough is strong. Bolus Presentation(s) ??? Thin liquid, ??? Puree ??? Regular consistency Oral Preparatory Phase Mastication: Insufficient mastication of solids following approximately 3 minutes of chewing. Solidbolus needed to be removed from oral cavity. Oral Transit: Normal across consistencies. Bolus Cohesion: Functional across consistencies. Labial Seal / Loss: Negative. Oral Stasis: Negative. Pharyngeal Phase Initiation: Suspect some mild initiation delay. Laryngeal Elevation: Normal to palpation. Vocal quality change: Without change in vocal quality with both purees and thin liquids. Cough: Without cough following swalows. Change in O2 sats: Negative. Pt. complaint of food getting stuck: Negative with purees and thin liquids. Esophageal Phase Appears to be WFL, No overt clinical s/s of esophageal phase dysphagia noted during this evaluation. A: Summary: Pt presents with functional oral manipulation of purees and thin liquids. Difficulty masticating solids and required removal of solids from oral cavity. Suspect difficulty is due to generalized weakness. No signs of aspiration with both purees and thin liquids. Below recommendations are made. Dx: Mild oral dysphagia with functionally appearing pharyngeal swallow. Education: Spoke with pt. re: above results and below recommendations. P: RECOMMENDATIONS: ??? Puree diet with thin liquids. ??? Upright to feed. ??? Medications whole with pudding/applesauce. Frequency of care: ??? Speech Pathology to follow : Therapy Frequency: 2-3 times/wk ??? Pt./family are in agreement with treatment plan. Short-Term Goals: (To be met by 12/09/18) ??? Pt will tolerate least restrictive diet without evidence of dysphagia / aspiration. ??? Pt / caregiver will be independent with aspiration precautions, diet modifications, and safe swallowing strategies. Long-Term Goal: ?? Pt will maintain hydration / nutrition with optimal safety and efficiency. Thank you for this consult with this patient. Please feel free to page me with any questions or concerns. VIJAY POWERS, STRIPING MACHINE OPERATOR MS, CCC-STRIPING MACHINE OPERATOR Inpatient Rehabilitation Medicine Pager: # [phone] * Med Student Progress Note - Amol Amezcuajoby Alejo - 11/20/2018 7:08 AM EDT ICU Blue (#[id number]) Progress Note Patient info: Name: Poppy Pino : 1960 PCP: KIARA Jesus PCP phone number: [phone] Date of Admission: 11/13/2018 ( Hospital Day 7 days ) Responsible Attending:Justin Amezcua MD Active Hospital Problems Diagnosis ??? Shock ??? ANGE (acute kidney injury) ??? ARDS (adult respiratory distress syndrome) Resolved Hospital Problems No resolved problems to display. ID: Poppy Pino is a 58 y.o. female w/ PMH of COPD on home O2 2-3L, IBS, GERD, diabetes mellitus, and HTN who presented as a transfer from [facility] for acute hypoxemic and hypercarbic respiratory failure and ARDS in the setting of recent influenza infection, now HD# 7. 24 Hour Events/Subjective: - Extubated yesterday, tolerating NC well, although still feels SOB (somewhat close to baseline) - L subclavian line pulled - air noticed in bandage afterward, no pneumothorax on CXR x2 - Hypertensive throughout yesterday - restarted on home lisinopril - Episode of agitation, hypertensive and tachypneic, found to have PVR of 1L, pena was placed and patient calmed down, also received trazodone 50mg with moderate effect Patient states she has pain in lower back/buttock, similar to chronic pain, as well as anxiety, somewhat worse than chronic anxiety Medications Scheduled Meds: ??? traZODone 50 mg Oral Nightly ??? pantoprazole 40 mg Oral Daily ??? lisinopril 10 mg Oral Nightly ??? polyethylene glycol 17 g Oral BID ??? QUEtiapine 50 mg Oral Nightly ??? senna-docusate 1 tablet Oral BID ??? folic acid 1 mg Oral Daily ??? cyanocobalamin (vitamin B-12) 1,000 mcg Oral Daily ??? insulin lispro 1-4 Units Subcutaneous Q4H ROSEMARY ??? heparin (Porcine) 5,000 Units Subcutaneous Q8H ROSEMARY ??? ipratropium-albuterol 3 mL Nebulization Q4H ROSEMARY Continuous Infusions: ??? dexmedetomidine Stopped (11/19/18 1311) ??? sodium chloride 0.9% 10 mL/hr (11/19/18 0120) PRN Meds:.haloperidol lactate, acetaminophen, bisacodyl, Glucose 40% oral gel OR dextrose OR glucagon (human recombinant) Objective: Vitals Last value Range last 24 hrs Temperature Temp: 36.9 ??C (98.5 ??F) Temp: [36.7 ??C (98.1 ??F)-37.7 ??C (99.9 ??F)] Heart Rate Heart Rate: 98 Heart Rate: [70-108] Blood Pressure BP: 115/77 BP: (115-178)/(77-109) Art Line BP BP (Arterial Line): 118/114 BP (Arterial Line): -- MAP (NBP): [85 mmHg-126 mmHg] Respiratory Rate Resp: 24 Resp: [16-31] SpO2 SpO2: 100 % SpO2: [93 %-100 %] Oxygen Delivery Oxygen Therapy O2 Device: Nasal cannula O2 Flow Rate (L/min): 2 L/min FiO2 (%): 30 % Intake/Output Summary (Last 24 hours) at 11/20/2018 0708 Last data filed at 11/20/2018 0600 Gross per 24 hour Intake 493.6 ml Output 2505 ml Net -2011.4 ml Patient Vitals for the past 168 hrs: Weight 11/20/18 0600 80.4 kg (177 lb 4 oz) 11/19/18 0024 81.8 kg (180 lb 5.4 oz) 11/18/18 0000 85.3 kg (188 lb 0.8 oz) 11/17/18 0000 83.9 kg (184 lb 15.5 oz) 11/16/18 0200 84 kg (185 lb 3 oz) 11/15/18 0600 83.2 kg (183 lb 6.8 oz) 11/13/18 2252 82.4 kg (181 lb 10.5 oz) Physical Exam: Gen: lying in bed, not in acute distress but tired and anxious appearing CV: tachycardic. Normal S1 and S2. No M/R/G. Pulm: diffuse expiratory wheezes throughout Abd: normal bowel sounds. Soft, mildly distended, nontender. Ext: no edema, clubbing, or cyanosis. Derm: small, <1cm skin tear, non-erythematous, possible; previous crepitus on L chest wall near site of previous subclavian line no longer present Lines: Pena PIV x2 Labs: Recent Labs 11/20/1813411/19/18 0345 11/18/18 0030 WBC 11.5* 9.6* 11.9* HGB 11.2* 9.6* 9.0* HCT 34.8* 30.1* 28.5* PLATELET 224 217 201 Recent Labs 11/20/18 0135 11/19/18 0345 11/18/18 2140 11/18/18 0030 NA 135 136 140 141 K 3.8 4.3 4.5 4.4 CL 95* 95* 97* 104 CO2 23 29 30 28 BUN 19* 24* 25* 26* CREATININE 0.73 0.87 0.91 0.74 GLUCOSE 92 133 146 94 CALCIUM 10.1 9.2 9.3 8.6 MAGNESIUM -- -- 0.75 0.79 PHOS -- -- -- 3.8 ProBNP (11/13/18) - 2920 CK, total 11/13 : 159 4: 2493 11/18: 2424 ABG (Arterial Blood Gas): 11/16/18 1055: 7.45 38 70 26.3 @ FiO2 35 PF ratio: 200 11/17/18 0732: 7.43 40 71 26.2 @ FiO2 45 PF ratio: 158 11/18/18 0753 7.49 37 64 27.2 @FiO2 30 PF ratio: 213 11/19/18 7.5 28 66 21 (during agitation/htn/tachypnic episode) Microbiology: BCx (11/13): NGTD BCx (11/14): NGTD Radiology: CXR 11/20/18 0147 IMPRESSION Stable examination, no pneumothorax. CXR 11/19/18 1600 IMPRESSION Overall, there is improved aeration of the lungs. No pneumothorax. Suspected radiographic evidence of trace of subcutaneous air in the soft tissues of the left. ASSESSMENT/PLAN: Poppy Pino is a 58 y.o. female w/ PMH of COPD on home O2 2-3L, IBS, diabetes mellitus, and HTNwho presented as a transfer from [facility] for acute hypoxemic and hypercarbic respiratory failure, withARDS in the setting of recent H1 influenza infection, now HD# 7 Doing well post-extubation on 2L O2 NC (home supplemental O2 needs). Her breathing is close to baseline. After removal of subclavian line yesterday, there was concern for a pneumothorax, however repeat CXRs are unremarkable and subcutaneous crepitus has resolved. She has had a few episodes of anxiety, agitation, and hypertension. She was restarted on her home HTN medication of lisinopril with good effect. Her anxiety and agitation is possibly due to underlying chronic anxiety vs post-extubation delirium. She is on chronic opioids for lower back pain at homeand thus there is a possibility of opioid withdrawal. However, this is unclear given symptoms couldbe due to post-extubation anxiety as well as her chronic IBS-D. Will restart her home citalopram and gabapentin for her anxiety and pain. Will hold off on opioids for now, but will schedule tylenol. Major Plans for Today: - Transfer to medical floor - Restart home meds (Citalopram / Gabapentin / IBS meds) Neuro #Agitation / Anxiety - Change Trazodone to 12.5 mg QHS - Start home citalopram - D/c Seroquel - D/c Haldol PRNs #Analgesia - Scheduled APAP 1000mg PO Q6hr - Gabapentin 300mg TID starting tonight - Lidocaine patch - Will hold off on opioids for now given hx of chronic use Cardiovascular #Hypertension - Continue home lisinopril 10mg QD #Volume overload 2/2 HFpEF? Increased proBNP, Echo as OSH with diastolic / systolic septal flattening, mod- sev TR, high PSP. Net -2.0 L yesterday, even for total admission - Will hold further diuresis for now Pulmonary #ARDS, resolved - Continue 2L O2 via NC (home supplemental O2 requirement) #COPD exacerbation - Held steroids in setting of influenza infection - Continue Duonebs q4hr Renal/Fluid/Electrolytes # ANGE due to pre-renal, resolved - Monitor Lytes, BMP daily Gastrointestinal/Metabolic/Nutrition # hx of IBS/ GERD - Continue pantoprazole PO - Restart home IBS meds (Lomotil) #DM - SSI and q4hr BG checks #Nutrition - Per STRIPING MACHINE OPERATOR swallow eval, will start puree diet Hematology/Infection #Concern secondary bacterial pneumonia - Stopped Vanc (11/13 - 11/14) given no indication of MRSA on cultures - Stopped Zosyn (11/13 - 11/18) given no indication or source of infection #Anemia, normocytic, likely mixed B12 / folate / iron deficiencies - Continue iron, folate, and B12 supplementation # Routine Diet: Puree DVT PPX: SubQ Heparin GI PPX: Protonix PO Activity: up as tolerated with assistance CODE STATUS: Full Code Dispo- transfer to medical floor Kleber Amezcua, M4 11/20/2018 Blue Team #[id number] * Plan of Care - Chloé Jacobs RN - 11/19/2018 5:00 PM EDT Problem: Patient Care Overview Goal: Plan of Care Review Outcome: Ongoing (Interventions Implemented as Appropriate) 11/19/18 0800 11/19/18 1643 Coping/Psychosocial Plan Of Care Reviewed With patient;spouse -- Plan of Care Review Progress -- progress toward functional goals as expected OUTCOME EVALUATION NOTE: OUTCOME SUMMARY: NSR. Hypertensive throughout the day, team aware. Extubated at ~0900, tolerating 2L NC. L subclavian line removed, about 5 minutes later there was air in the dressing and it was saturated in blood. Positive bilateral breath sounds, some L crepitus present, team at bedside. NRB applied for ~1 hour, CXR complete. Patient anxious requiring 2.5mg Haldol IV. Patient coughing with thin liquids during bedside swallow, STRIPING MACHINE OPERATOR consulted. High PVR (>700mL), straight cath x1. DTV at ~2100. PLAN MOVING FORWARD: Follow-up CXR @1999. INDIVIDUALIZED FALL PREVENTION INTERVENTIONS: Patient-specific fall risk factors per assessment: medical equipment, deconditioning Assistance: 2 assist Supervision: Hands on Surveillance: Bed locked in low position, call thomas within reach, purposeful hourly rounding, clutter free environment, bed alarm on, family at bedside Patient-specific fall prevention interventions for sensory deficits provided: Yes CPG GOAL OUTCOME EVALUATION: Continue care plan as documented. Problem: Constipation (Adult) Goal: Effective Bowel Elimination Patient will demonstrate the desired outcomes by discharge/transition of care. Outcome: Ongoing (Interventions Implemented as Appropriate) 11/19/18 1643 Constipation (Adult) Effective Bowel Elimination making progress toward outcome * Med Student Progress Note - Kleber Amezcua - 11/19/2018 6:59 AM EDT ICU Blue (#2020) Progress Note Patient info: Name: Poppy Pino : 1960 PCP: KIARA Jesus PCP phone number: [phone] Date of Admission: 11/13/2018 ( Hospital Day 6 days ) Responsible Attending:Justin Amezcua MD Active Hospital Problems Diagnosis ??? Shock ??? ANGE (acute kidney injury) ??? ARDS (adult respiratory distress syndrome) Resolved Hospital Problems No resolved problems to display. ID: Poppy Pino is a 58 y.o. female w/ PMH of COPD on home O2 2-3L, IBS, GERD, diabetes mellitus, and HTN who presented as a transfer from [facility] for acute hypoxemic and hypercarbic respiratory failure and ARDS in the setting of recent influenza infection, now HD# 6. 24 Hour Events/Subjective: - Weaned sedation with stopping propofol, switched to Precedex - Diuresed with lasix 40mg x1 with 5L of urine output - 10 beat run of asymptomatic VT, given magnesium - Initial SBT stopped due to agitation, second SBT passed Medications Scheduled Meds: ??? [START ON 11/20/2018] pantoprazole 40 mg Oral Daily ??? polyethylene glycol 17 g Oral BID ??? QUEtiapine 50 mg Oral Nightly ??? senna-docusate 1 tablet Oral BID ??? folic acid 1 mg Oral Daily ??? cyanocobalamin (vitamin B-12) 1,000 mcg Oral Daily ??? insulin lispro 1-4 Units Subcutaneous Q4H ROSEMARY ??? heparin (Porcine) 5,000 Units Subcutaneous Q8H ROSEMARY ??? ipratropium-albuterol 3 mL Nebulization Q4H ROSEMARY Continuous Infusions: ??? dexmedetomidine 1 mcg/kg/hr (11/19/18 1120) ??? sodium chloride 0.9% 10 mL/hr (11/19/18 0120) PRN Meds:.haloperidol lactate, acetaminophen, Assess AND [] fentaNYL AND fentaNYL AND fentaNYL AND shift total and Settings verification, bisacodyl, Glucose 40% oral gel ORdextrose OR glucagon (human recombinant) Objective: Vitals Last value Range last 24 hrs Temperature Temp: 36.9 ??C (98.4 ??F) Temp: [36.6 ??C (97.9 ??F)-37.8 ??C (100 ??F)] Heart Rate Heart Rate: 74 Heart Rate: [68-105] Blood Pressure BP: 144/79 BP: (105-171)/(64-88) Art Line BP BP (Arterial Line): 118/114 BP (Arterial Line): (118)/(114) MAP (NBP): [74 mmHg-107 mmHg] Respiratory Rate Resp: 20 Resp: [12-58] SpO2 SpO2: 91 % SpO2: [91 %-98 %] Oxygen Delivery Oxygen Therapy O2 Device: Ventilator FiO2 (%): 30 % Intake/Output Summary (Last 24 hours) at 11/19/2018 0659 Last data filed at 11/19/2018 0600 Gross per 24 hour Intake 3540.99 ml Output 5255 ml Net -1714.01 ml Patient Vitals for the past 168 hrs: Weight 11/19/18 0024 81.8 kg (180 lb 5.4 oz) 11/18/18 0000 85.3 kg (188 lb 0.8 oz) 11/17/18 0000 83.9 kg (184 lb 15.5 oz) 11/16/18 0200 84 kg (185 lb 3 oz) 11/15/18 0600 83.2 kg (183 lb 6.8 oz) 11/13/18 2252 82.4 kg (181 lb 10.5 oz) Physical Exam: Gen: intubated, but spontaneously moves extremities, opens eyes, responds to voice and tracks with eyes, RASS +1 CV: RRR. Normal S1 and S2. No M/R/G. Pulm: coarse breath sounds throughout Abd: normal bowel sounds. Soft, mildly distended, nontender. Ext: no edema, clubbing, or cyanosis. Vent: Mode PEEP PS RR TV FIO2 MV PS/CPAP 5 8 30 Lines: Central lines - L Subclav Pena Labs: Recent Labs 11/19/18 0345 11/18/18 0030 11/17/18 0125 WBC 9.6* 11.9* 9.5 HGB 9.6* 9.0* 8.3* HCT 30.1* 28.5* 26.4* PLATELET 217 201 201 Recent Labs 11/19/18 0345 11/18/18 2140 11/18/18 0030 NA 136 140 141 K 4.3 4.5 4.4 CL 95* 97* 104 CO2 29 30 28 BUN 24* 25* 26* CREATININE 0.87 0.91 0.74 GLUCOSE 133 146 94 CALCIUM 9.2 9.3 8.6 MAGNESIUM -- 0.75 0.79 PHOS -- -- 3.8 ProBNP (11/13/18) - 2920 CK, total 11/13 : 159 11/17: 2493 11/18: 2424 ABG (Arterial Blood Gas): 11/16/18 1055: 7.45 38 70 26.3 @ FiO2 35 PF ratio: 200 11/17/18 0732: 7.43 40 71 26.2 @ FiO2 45 PF ratio: 158 11/18/18 0753 7.49 37 64 27.2 @FiO2 30 PF ratio: 213 Microbiology: BCx (11/13): NGTD BCx (11/14): NGTD ASSESSMENT/PLAN: Poppy Pino is a 58 y.o. female w/ PMH of COPD on home O2 2-3L, IBS, diabetes mellitus, and HTNwho presented as a transfer from [facility] for acute hypoxemic and hypercarbic respiratory failure, withARDS in the setting of recent H1 influenza infection, now HD# 6 Improving mental status and passed SBT this morning, thus was extubated during rounds and doing well on 2L O2 via NC. We will continue to decrease sedation, with goal of stopping Precedex this afternoon and using 2.5mg haldol prn for agitation or delirium. If she continues to do well post-extubation, we will d/c her pena and central line, do a bedside swallow in order to restart PO meds and diet. Will consider restarting home lisinopril this afternoonfor persistent hypertension. Major Plans for Today: - Decrease precedex over today with PRN haldol for agitation/delirium as needed - Bedside swallow for PO meds/diet - Pull pena and central line - Consider restarting lisinopril later today Neuro #Sedation - Stopped Propofol/fentanyl gtt - Wean Precedex throughout AM with goal to be d/c by afternoon - D/C seroquel - Haldol 2.5mg Q6hr PRN agitation #Analgesia - APAP 650mg PO Q6hr PRN pain - Can consider opioid if patient has breakthrough pain Cardiovascular #Hypotension, resolved (occurred after sedation with propofol) -> now Hypertensive - Consider restarting home lisinopril 10mg QD this afternoon if hypertension persists #Volume overload 2/2 HFpEF? Increased proBNP, Echo as OSH with diastolic / systolic septal flattening, mod- sev TR, high PSP. Lasix 40mg x2 given, but had increase in Cr (now improved). Overall she has been net fluid positive during this admission. Diuresed net -1.7 L with lasix 40mg x1 on 11/18 - Will hold further diuresis for now Pulmonary #ARDS Extubated, on 2L O2 via NC #COPD exacerbation - Held steroids in setting of influenza infection - Continue Duonebs q4hr Renal/Fluid/Electrolytes # ANGE due to pre-renal, resolved - Monitor Lytes, BMP daily #Resp Acidosis with metabolic compensation, resolved #Hypernatremia, resolved - Stop free water boluses given no further diuresis planned and normalized sodium level Gastrointestinal/Metabolic/Nutrition # hx of IBS/ GERD - Switch to PO pantoprazole if able to take PO - holding home IBS meds #DM - SSI and q4hr BG checks #Nutrition - D/C tube feeds given extubation and removal of NG tube - Pending bedside swallow and if doing well post-extubation, will add back normal diet Hematology/Infection #Concern secondary bacterial pneumonia - Stopped Vanc (11/13 - 11/14) given no indication of MRSA on cultures - Stopped Zosyn (11/13 - 11/18) given no indication or source of infection #Anemia, normocytic, likely mixed B12 / folate / iron deficiencies - Continue iron, folate, and B12 supplementation # Routine Diet: NPO DVT PPX: SubQ Heparin GI PPX: Protonix PO Activity: up as tolerated with assistance CODE STATUS: Full Code Dispo- Continue ICU level care, possibly move to medicine floor tomorrow Kleber Amezcua, M4 11/19/2018 Blue Team #[id number] * Plan of Care - Erika Hernandez RN - 11/19/2018 6:54 AM EDT Problem: Patient Care Overview Goal: Plan of Care Review Outcome: Ongoing (Interventions Implemented as Appropriate) 11/19/18 0631 Coping/Psychosocial Plan Of Care Reviewed With patient Plan of Care Review Progress no change OUTCOME EVALUATION NOTE: OUTCOME SUMMARY: Pt sedated on 150-250mcg/hr Fentanyl requiring multiple boluses overnight for agitation/restlessness and 1.7mcg/kg/hr Precedex. RASS -2 to +2/3. Unable to follow commands @ this time. PS 8/8 on 30% FiO2 maintaining O2 sat low to mid 90's. Unable to complete SBT this AM d/t agitation. NSR with occasional PAC's 70's-80's. 13 beat run VT @ beginning of shift - MD Del Toro aware, 2g Mag replaced. TF paused this AM @ 0400 per discussion with MD Del Toro for possible extubation today. Adequate u/o. Bath completed. Will CTM. PLAN MOVING FORWARD: - Wean sedation as appropriate - Nutrition - Extubate? INDIVIDUALIZED FALL PREVENTION INTERVENTIONS: Patient-specific fall risk factors per assessment: [current deficits]: Unfamiliar environment, generalized weakness, sedated/intubated, SCD's, pena, IV sites/pole, mech vent, NGT Assistance [level of assistance required for transfers and ambulation]: Dependent Supervision [direct monitoring required during toileting and ADLs]: Dependent Surveillance [continuous indirect monitoring]: Eyes-on, hands-on, bed alarm, [place] [facility], family toremain @ bedside, room near nurses' station Patient-specific fall prevention interventions for sensory deficits provided, if applicable: [X] N/A CPG GOAL OUTCOME EVALUATION: * Plan of Care - Satya Pires RN - 11/18/2018 6:30 PM EDT Problem: Patient Care Overview Goal: Plan of Care Review Outcome: Ongoing (Interventions Implemented as Appropriate) 11/18/18 1822 Coping/Psychosocial Plan Of Care Reviewed With spouse Plan of Care Review Progress no change OUTCOME EVALUATION NOTE: OUTCOME SUMMARY: Patient neuro status improved through day. By end of day able to occasionally follow commands. Patient weaned off of Propofol and on to Precedex. Patient became agitated and restless and received two, one-time doses of Haldol 5mg. Plan to wean sedation over night. Patient switched over to pressure support, 8 over 8 with FI02 of 30. Patient receive 40mg of Lassix with good effect, -2.5 for shift. Patients tube feeds at goal 65ml/hr. PLAN MOVING FORWARD: Continue to wean sedation. Monitor neuro status for changes, Goal is RASS 0 to -2. * Med Student Progress Note - Kleber Amezcua T - 11/18/2018 7:14 AM EDT ICU Blue (#9274) Progress Note Patient info: Name: Poppy Pino : 1960 PCP: KIARA Jesus PCP phone number: [phone] Date of Admission: 11/13/2018 ( Hospital Day 5 days ) Responsible Attending:Justin Amezcua MD Active Hospital Problems Diagnosis ??? Shock ??? ANGE (acute kidney injury) ??? ARDS (adult respiratory distress syndrome) Resolved Hospital Problems No resolved problems to display. ID: Poppy Pino is a 58 y.o. female w/ PMH of COPD on home O2 2-3L, IBS, GERD, diabetes mellitus, and HTN who presented as a transfer from [facility] for acute hypoxemic and hypercarbic respiratory failure and ARDS in the setting of recent influenza infection, now HD# 5. 24 Hour Events/Subjective: - switched to PS/CPAP last evening - more awake but agitated overnight with SBPs to 170s-180s, tachycardic - Nursing up titrated propofol from 30-> 40 with resolution of agitation Medications Scheduled Meds: ??? shift total and Settings verification 1 each Intravenous 2 Times Daily - Shift Total ??? polyethylene glycol 17 g Oral Daily ??? senna-docusate 1 tablet Oral BID ??? folic acid 1 mg Oral Daily ??? cyanocobalamin (vitamin B-12) 1,000 mcg Oral Daily ??? chlorhexidine 15 mL Oral BID ??? white petrolatum-mineral oil 1 each Both Eyes BID ??? pantoprazole 40 mg Intravenous Daily ??? insulin lispro 1-4 Units Subcutaneous Q4H ROSEMARY ??? heparin (Porcine) 5,000 Units Subcutaneous Q8H ROSEMARY ??? ipratropium-albuterol 3 mL Nebulization Q4H RSOEMARY ??? piperacillin-tazobactam 3.375 g Intravenous Q8H Continuous Infusions: ??? fentaNYL 200 mcg/hr (11/18/18 0800) ??? propofol 40 mcg/kg/min (11/18/18 0802) ??? tube feeding diet 1,300 mL (11/18/18 08) ??? sodium chloride 0.9% 10 mL/hr (11/18/18 08) ??? NORepinephrine Stopped (11/17/181914) PRN Meds:.acetaminophen, Assess AND [] fentaNYL AND fentaNYL AND fentaNYL AND shift total and Settings verification, bisacodyl, Glucose 40% oral gel OR dextrose OR glucagon (human recombinant) Objective: Vitals Last value Range last 24 hrs Temperature Temp: 37.5 ??C (99.5 ??F) Temp: [37.1 ??C (98.8 ??F)-38.4 ??C (101.1 ??F)] Heart Rate Heart Rate: 96 Heart Rate: [67-108] Blood Pressure BP: 108/67 BP: -- Art Line BP BP (Arterial Line): 157/85 BP (Arterial Line): (100-189)/(54-104) MAP (NBP): -- Respiratory Rate Resp: 25 Resp: [12-36] SpO2 SpO2: 95 % SpO2: [90 %-100 %] Oxygen Delivery Oxygen Therapy O2 Device: Ventilator FiO2 (%): 30 % Intake/Output Summary (Last 24 hours) at 11/18/2018 0714 Last data filed at 11/18/2018 0600 Gross per 24 hour Intake 3215.4 ml Output 1810 ml Net 1405.4 ml Patient Vitals for the past 168 hrs: Weight 11/18/18 0000 85.3 kg (188 lb 0.8 oz) 11/17/18 0000 83.9 kg (184 lb 15.5 oz) 11/16/18 0200 84 kg (185 lb 3 oz) 11/15/18 0600 83.2 kg (183 lb 6.8 oz) 11/13/18 2252 82.4 kg (181 lb 10.5 oz) Physical Exam: Gen: intubated, but spontaneously moves extremities, opens eyes, but does not track, RASS -3 CV: RRR. Normal S1 and S2. No M/R/G. Pulm: clear to auscultation breath sounds throughout Abd: normal bowel sounds. Soft, mildly distended, nontender. Ext: no edema, clubbing, or cyanosis. Vent: Mode PEEP PS RR TV FIO2 MV PS/CPAP 10 10 30 Lines: ETT NG PIV x2 Central lines - L Subclav Arterial line - L radial Pena Labs: Recent Labs 11/18/18 0030 11/17/1812411/16/18224 WBC 11.9* 9.5 10.8* HGB 9.0* 8.3* 8.2* HCT 28.5* 26.4* 26.4* PLATELET 201 201 187 Recent Labs 11/18/18 0030 11/17/18 01211/16/18224 NA 141 148* 145 K 4.4 4.3 4.4 CL 104 110* 109* CO2 28 28 27 BUN 26* 30* 31* CREATININE 0.74 0.92 1.03 GLUCOSE 94 112 -- CALCIUM 8.6 8.5 8.8 MAGNESIUM 0.79 -- 1.02 PHOS 3.8 -- -- ProBNP (11/13/18) - 2920 CK, total 11/13 : 159 11/17: 2493 11/18: 2424 ABG (Arterial Blood Gas): 11/16/18 1055: 7.45 38 70 26.3 @ FiO2 35 PF ratio: 200 11/17/18 0732: 7.43 40 71 26.2 @ FiO2 45 PF ratio: 158 11/18/18 0753 7.49 37 64 27.2 @FiO2 30 PF ratio: 213 Microbiology: BCx (11/13): NGTD BCx (11/14): NGTD Lower Respiratory Culture via tracheal Aspirate (11/17): Few neutrophils, rare gram positive rods ASSESSMENT/PLAN: Poppy Pino is a 58 y.o. female w/ PMH of COPD on home O2 2-3L, IBS, diabetes mellitus, and HTNwho presented as a transfer from [facility] for acute hypoxemic and hypercarbic respiratory failure, withARDS in the setting of recent H1 influenza infection, now HD# 5 Her respiratory status continues to improve and she is tolerating PS/CPAP. We will wean PEEP today. With weaning of her sedation, she has been more awake but having intermittent episodes of agitation/anxiety. We will continue to wean her propofol for goal RAAS of -2 -> 0 with fentanyl boluses and up-titration of propofol as needed for episodes of agitation. May consider starting Precedex to bridge to extubation. She is no longer febrile, with only slight increase in WBC and rare GPR on BAL, which are likely normal upper resp caryn. There are no other identified sources of infectious. Thus will complete the 5-day course of Zosyn today (11/18). Stable elevated CK. Creatine and urine output improved. Will continue to monitor. Major Plans for Today: - Continue to reduce sedation to RAAS -2 -> 0 - Wean PEEP - Stop Zosyn Neuro #sedation - Continue Propofol, wean down to RASS -2 - 0, with fentanyl boluses as needed - Continue fentanyl gtt - Can consider a Precedex bridge to sedation #paralytics - Off Nimbex since 11/15 Cardiovascular # Hypotension, resolved (occurred after sedation with propofol) - Stopped levophed due to MAPs > 65 - Holding home htn medication #Volume overload 2/ HFpEF? Increased proBNP, Echo as OSH with diastolic / systolic septal flattening, mod- sev TR, high PSP. Lasix 40mg x2 given, but had increase in Cr (now improved). Overall she has been +4L during this admission - Lasix 40mg + 40 mEq K+ with goal of -1L Pulmonary #ARDS - Continue PS/CPAP - Will wean PEEP further today - If continues to improve, will consider extubation this afternoon or tomorrow #COPD exacerbation - Holding steroids in setting of influenza infection - Duonebs q4hr Renal/Fluid/Electrolytes # ANGE due to pre-renal - Cr improving - Monitor Lytes, BMP daily #Resp Acidosis with metabolic compensation - Now slightly alkalotic - Will stop sodium bicarb #Hypernatremia, resolved - Given diuresis plan, will given scheduled 300 mL q8hrs of free water boluses to prevent recurrence of hypernatremia Gastrointestinal/Metabolic/Nutrition # hx of IBS/ GERD - Continue Protonix - holding home IBS meds #DM - SSI and q4hr BG checks #Nutrition - Continue tube feeds Hematology/Infection #Concern secondary bacterial pneumonia - Stopped Vanc (11/13 - 11/14) given no indication of MRSA on cultures - Stop Zosyn (11/13 - 11/18) given no indication or source of infection - Tylenol PRN fever #Anemia, normocytic, likely mixed B12 / folate / iron deficiencies - Continue iron, folate, and B12 supplementation # Routine Diet: NPO DVT PPX: SubQ Heparin GI PPX: Protonix Activity: bedrest CODE STATUS: Full Code Dispo- Continue ICU level care Kleber Amezcua, M4 11/18/2018 Blue Team #[id number] * Plan of Care - Erika Hernandez RN - 11/18/2018 5:13 AM EDT Problem: Patient Care Overview Goal: Plan of Care Review Outcome: Ongoing (Interventions Implemented as Appropriate) 11/18/18 2674 Coping/Psychosocial Plan Of Care Reviewed With patient Plan of Care Review Progress no change OUTCOME EVALUATION NOTE: OUTCOME SUMMARY: Pt intubated @ beginning of shift in VC (see [facility] vent flow sheet for settings) with 35% FiO2. Transitioned to PS overnight with PEEP 10 and FiO2 30-40% maintaining O2 sat low to mid 90s. In-line suctioned multiple times with moderate, thick zuniga secretions. Sedated on 30-40mcg/kg/min Propofol and 20 0mcg/hr Fentanyl requiring boluses x3 (see MAR) for increased coughing episodes, HTN, and tachycardia d/t inadequate sedation and wakefulness. Katey TERRELL notified - per discussion, no intervention totreat BP though ok to go up on propofol and use fentanyl boluses as needed. RASS -2 to -1 overnight. Levo off since beginning of shift, MAP maintained >65. NSR with frequent ectopy. TF continued, tolerating well. Small mucous (clear/yellow) BM overnight. Adequate u/o. Turned and repositioned q2h. Bath completed. Supportive @ bedside overnight. Will CTM. PLAN MOVING FORWARD: - Monitor resp status - Wean FiO2 - Bowel regimen - Nutrition - Wean sedation as appropriate INDIVIDUALIZED FALL PREVENTION INTERVENTIONS: Patient-specific fall risk factors per assessment: [current deficits]: Generalized weakness, sedated/intubated, pena, restraints, IV sites/pole/tubing, monitor cords, ETT Assistance [level of assistance required for transfers and ambulation]: Dependent Supervision [direct monitoring required during toileting and ADLs]: Depenedent Surveillance [continuous indirect monitoring]: Eyes-on, hands-on, bed alarm, [place] [facility], family toremain @ bedside, room near nurses' station Patient-specific fall prevention interventions for sensory deficits provided, if applicable: [X] N/A CPG GOAL OUTCOME EVALUATION: * Plan of Care - Satya Pires RN - 11/17/2018 5:18 PM EDT Problem: Patient Care Overview Goal: Plan of Care Review Outcome: Ongoing (Interventions Implemented as Appropriate) 11/17/18 1544 Coping/Psychosocial Plan Of Care Reviewed With spouse Plan of Care Review Progress no change OUTCOME EVALUATION NOTE: OUTCOME SUMMARY: Patient unresponsive to pain, pupils are 3mm equal and reactive. Patient on restraints for ET tube protection. Patient febrile in am, broke with acetaminophen. Versad D/C. Patient on Propofol and fentynal to maintain sedation. Patient on Levophed to maintain map >65. Patient on VC with fi02 of 40 % and peep of 10, sating in the 90s. PLAN MOVING FORWARD: Continue to titrate levophed to maintain map of 65 and wean sedation as patients tolerates to vent synchrony. * Med Student Progress Note - Kleber Amezcua - 11/17/2018 7:13 AM EDT ICU Blue (#[id number]) Progress Note Patient info: Name: Poppy Pino : 1960 PCP: KIARA Jesus PCP phone number: [phone] Date of Admission: 11/13/2018 ( Hospital Day 4 days ) Responsible Attending:Vivian Valdez Jr., MD Active Hospital Problems Diagnosis ??? Shock ??? ANGE (acute kidney injury) ??? ARDS (adult respiratory distress syndrome) Resolved Hospital Problems No resolved problems to display. ID: Poppy Pino is a 58 y.o. female w/ PMH of COPD on home O2 2-3L, IBS, GERD, diabetes mellitus, and HTN who presented as a transfer from [facility] for acute hypoxemic and hypercarbic respiratory failure and ARDS in the setting of recent influenza infection, now HD# 4. 24 Hour Events/Subjective: - Yesterday RR decreased 22 -> 18, PEEP weaned 10 -> 8, increased TV over the weekend to 7cc/kg (400) - off ARDS protocol - noted to increased secretions (thick and zuniga) - Decrease Versed as it was ineffective, switched back to propofol for sedation - Levophed added for BP support (in setting of restarting propofol) - Fentanyl increased back for analgesia - anemia work-up -> iron/folate/B12 deficiencies - started on supplementation Last evening: ~0330: desat to 88%, hypertensive to 180s, tachycardic to 100s. FiO2 increased to 45%, propofol increased and Fentanyl bolused Medications Scheduled Meds: ??? shift total and Settings verification Intravenous 2 Times Daily - Shift Total ??? polyethylene glycol 17 g Oral Daily ??? senna-docusate 1 tablet Oral BID ??? shift total and Settings verification 1 each Intravenous 2 Times Daily - Shift Total ??? folic acid 1 mg Oral Daily ??? cyanocobalamin (vitamin B-12) 1,000 mcg Oral Daily ??? chlorhexidine 15 mL Oral BID ??? white petrolatum-mineral oil 1 each Both Eyes BID ??? sodium bicarbonate 650 mg Per NG tube Q8H ??? pantoprazole 40 mg Intravenous Daily ??? insulin lispro 1-4 Units Subcutaneous Q4H ROSEMARY ??? heparin (Porcine) 5,000 Units Subcutaneous Q8H ROSEMARY ??? ipratropium-albuterol 3 mL Nebulization Q4H ROSEMARY ??? piperacillin-tazobactam 3.375 g Intravenous Q8H Continuous Infusions: ??? fentaNYL 200 mcg/hr (11/17/18599) ??? tube feeding diet 960 mL (11/16/18 1800) ??? propofol 40 mcg/kg/min (11/17/18657) ??? midazolam in normal saline 3 mg/hr (11/17/18599) ??? sodium chloride 0.9% 10 mL/hr (11/16/18 1800) ??? NORepinephrine 1 mcg/min (11/17/18657) PRN Meds:.bisacodyl, Assess AND [] fentaNYL AND fentaNYL AND fentaNYL AND shift total and Settings verification, Glucose 40% oral gel OR dextrose OR glucagon (human recombinant) Objective: Vitals Last value Range last 24 hrs Temperature Temp: 37.3 ??C (99.1 ??F) Temp: [36.9 ??C (98.4 ??F)-37.6 ??C (99.7 ??F)] Heart Rate Heart Rate: 88 Heart Rate: [76-114] Blood Pressure BP: 108/67 BP: -- Art Line BP BP (Arterial Line): 85/47 BP (Arterial Line): (83-188)/(44-110) MAP (NBP): -- Respiratory Rate Resp: 18 Resp: [18-40] SpO2 SpO2: 95 % SpO2: [90 %-99 %] Oxygen Delivery Oxygen Therapy O2 Device: Ventilator FiO2 (%): 45 % Intake/Output Summary (Last 24 hours) at 11/17/2018 0713 Last data filed at 11/17/2018 0600 Gross per 24 hour Intake 2966 ml Output 870 ml Net 2096 ml Patient Vitals for the past 168 hrs: Weight 11/17/18 0000 83.9 kg (184 lb 15.5 oz) 11/16/18 0200 84 kg (185 lb 3 oz) 11/15/18 0600 83.2 kg (183 lb 6.8 oz) 11/13/18 2252 82.4 kg (181 lb 10.5 oz) Physical Exam: Gen: NAD, sedated, paralyzed and intubated, RASS -5 CV: RRR. Normal S1 and S2. No M/R/G. Pulm: coarse breath sounds throughout Abd: normal bowel sounds. Soft, nondistended, nontender. Ext: no edema, clubbing, or cyanosis. Vent: Mode PEEP PS RR TV FIO2 MV VC 8 18 400 45 10.4 Lines: ETT NG PIV x2 Central lines - L Subclav Arterial line - L radial Pena Labs: Recent Labs 11/17/18 0125 11/16/18 0225 11/15/18 0035 WBC 9.5 10.8* 11.5* HGB 8.3* 8.2* 8.9* HCT 26.4* 26.4* 29.6* PLATELET 201 187 190 Recent Labs 11/17/18 0125 11/16/18 0225 11/15/18 0035 NA 148* 145 144 K 4.3 4.4 4.8 CL 110* 109* 107 CO2 28 27 25 BUN 30* 31* 30* CREATININE 0.92 1.03 1.45* GLUCOSE 112 -- -- CALCIUM 8.5 8.8 8.7 MAGNESIUM -- 1.02 -- ProBNP (11/13/18) - 2920 ABG (Arterial Blood Gas): 11/16/18 1055: 7.45 38 70 26.3 @ FiO2 35 PF ratio: 200 11/17/18 0732: 7.43 40 71 26.2 @ FiO2 45 PF ratio: 158 Microbiology: BCx (11/13): NGTD BCx (11/14): NGTD Lower Respiratory Culture via tracheal Aspirate (11/16): No microorganisms seen Pertinent radiology/diagnostic studies: Xr Chest Pa Or Ap 1 View Result Date: 11/16/2018 IMPRESSION Interval improvement in pulmonary edema since 11/13/2018. Echo 11/12/18 (OSH): - mild LVH, EF 60-65% - RV normal size, - diastolic / systolic septal flattening, - Mod-severe Tricuspid regurg - PSP 55-60 ASSESSMENT/PLAN: Poppy Pino is a 58 y.o. female w/ PMH of COPD on home O2 2-3L, IBS, diabetes mellitus, and HTNwho presented as a transfer from [facility] for acute hypoxemic and hypercarbic respiratory failure, withARDS in the setting of recent H1 influenza infection vs secondary bacterial pneumomia, now HD# 4 Worsening PF ratio on repeat ABG this AM, thus will go back up on PEEP. Given thick secretions and new fevers this morning, will have a lower resp culture, BCx, and CXR done to evaluate for possible source of infection vs mucus plugging vs atelectasis. Major Plans for Today: - Lower respiratory culture - BAL - CXR - BCx - Increase PEEP Neuro #sedation - Stop midazolam gtt - Continue Propofol - Continue fentanyl gtt - check triglycerides for propofol induced hypertriglyceridemia #paralytics - Off Nimbex since 11/15 Cardiovascular # Hypotension Occurred after sedation with propofol - Continue levophed, wean as tolerated for MAP goal >65 - Holding home htn medication #Volume overload 2/2 HFpEF? Increased proBNP, Echo as OSH with diastolic / systolic septal flattening, mod- sev TR, high PSP. Lasix 40mg x2 given, but had increase in Cr. Holding for now Pulmonary #ARDS - Titrating PEEP and RR, increased TV over the weekend (off ARDS protocol) with initially improved PF ratios, however now worse. Will increase back PEEP. - Lower Resp Culture w/ BAL - CXR - BCx #COPD exacerbation - Holding steroids in setting of influenza infection - Duonebs q4hr Renal/Fluid/Electrolytes # ANGE due to pre-renal vs ATN - Cr improving - Monitor Lytes, BMP daily #Resp Acidosis with metabolic compensation - Now slightly alkalotic - Will stop sodium bicarb #Hypernatremia - Free water boluses 300ml per NG tube q6h to slowly correct Gastrointestinal/Metabolic/Nutrition # hx of IBS/ GERD - Continue Protonix - holding home IBS meds #DM - SSI and q4hr BG checks #Nutrition - Continue tube feeds Hematology/Infection #Concern secondary bacterial pneumonia - Stopped Vanc (11/13 - 11/14) given no indication of MRSA on cultures - Continue Zosyn (11/13 - ) - Tylenol PRN fever #Anemia, normocytic, likely mixed B12 / folate / iron deficiencies - Continue iron, folate, and B12 supplementation # Routine Diet: NPO DVT PPX: SubQ Heparin GI PPX: Protonix Activity: bedrest CODE STATUS: Full Code Dispo- Continue ICU level care Kleber Amezcua, M4 11/17/2018 Blue Team #[id number] * Plan of Care - Erika Hernandez RN - 11/17/2018 5:58 AM EDT Problem: Patient Care Overview Goal: Plan of Care Review Outcome: Ongoing (Interventions Implemented as Appropriate) 11/17/18 1252 Coping/Psychosocial Plan Of Care Reviewed With patient Plan of Care Review Progress no change OUTCOME EVALUATION NOTE: OUTCOME SUMMARY: At the beginning of the shift pt was intubated/sedated on VC (see [facility] vent flow sheet for settings) @ 35% FiO2 as well as 30mcg/kg/min Propofol, 3mg/hr Versed, 200mcg/hr Fentanyl, and Levo @ 2mcg/min to maintain MAP >65. NSR in 80's with frequent PACs. TF continued @ goal of 40mL/hr, toleratingwell. Low U/O intermittently overnight, primary team notified - pena flushed x2 with good result. Bath completed. ~0330 Pt desat to 88%, hypertensive in 180s (systolically), and tachycardic in 100s. Vent settings adjusted (see [facility] vent flow sheet) and FiO2 increased to 45%. Propofol increased to 50mcg/kg/min and multiple PRN Fentanyl boluses given to make pt more comfortable. 0355: Levo paused, MAP maintained @ goal >65. 0530: Pt remains tachycardic, hypertensive, and more awake - primary team notified. Propofol order adjusted and titrated as high as 70mcg/kg/min (see MAR) with good effect. Levo remains off @ this time. 3mg/hr Versed and 200mcg/hr Fentanyl continued. Will CTM. PLAN MOVING FORWARD: - Titrate sedation - Monitor VS - Monitor resp status INDIVIDUALIZED FALL PREVENTION INTERVENTIONS: Patient-specific fall risk factors per assessment: [current deficits]: IV sites/pole, sedated/intubated, pena, monitor cords, NGT Assistance [level of assistance required for transfers and ambulation]: Dependent Supervision [direct monitoring required during toileting and ADLs]: Dependent Surveillance [continuous indirect monitoring]: Eyes-on, hands-on, bed alarm, [place] [facility], room nearnurses' station Patient-specific fall prevention interventions for sensory deficits provided, if applicable: [X] N/A CPG GOAL OUTCOME EVALUATION: * Plan of Care - Satya Pires RN - 11/16/2018 4:52 PM EDT Problem: Patient Care Overview Goal: Plan of Care Review Outcome: Ongoing (Interventions Implemented as Appropriate) 11/16/18 1642 Coping/Psychosocial Plan Of Care Reviewed With patient;spouse Plan of Care Review Progress no change OUTCOME EVALUATION NOTE: OUTCOME SUMMARY: Patient weaned lower on versed from 5mg/hr to 3mg/hr to start to lower sedation. Pat still on VC, PEEP weaned to 8, RR weaned to 18, still on 35% FI02 sating High 90's. Patient was at bedsidemost of the shift. Patient had increased secretions after turns that were thick and zuniga. Patient still at a RASS -5 . Levophed on to maintain MAP greater than 65, fentanyl and propofol maintained same rate though out shift to maintain sedation. Tube feed goal rate was achieved. Urine output decrease during shift. PLAN MOVING FORWARD: Plan is to keep weaning on versed and ventilator support. Notify patients of any major changes. * Plan of Care - Emelia Bhagat RN - 11/15/2018 10:54 AM EDT Problem: Ventilation, Mechanical Invasive (Adult) Goal: Signs and Symptoms of Listed Potential Problems Will be Absent, Minimized or Managed (Ventilation, Mechanical Invasive) Signs and symptoms of listed potential problems will be absent, minimized or managed by discharge/transition of care (reference Ventilation, Mechanical Invasive (Adult) CPG). 11/15/18 1052 Ventilation, Mechanical Invasive Problems Assessed (Mechanical Ventilation, Invasive) all Problems Present (Mechanical Ventilation, Invasive) immobility;malnutrition Pt with improving ABGs. Plan to remove paralytic. Pt with S/S of distress during care, plan to increase sedation per team. Problem: Constipation (Adult) Goal: Identify Related Risk Factors and Signs and Symptoms Related risk factors and signs and symptoms are identified upon initiation of Human Response Clinical Practice Guideline (CPG) Outcome: Ongoing (Interventions Implemented as Appropriate) 11/15/18 1052 Constipation Constipation: Related Risk Factors diet/fluid restriction;hospitalization;impaired mobility;medication effects;weakness/fatigue Signs and Symptoms (Constipation) abdomen firm, tender Pt with no bowel movement since before admission. Bowel medications initiated. * Plan of Care - Yana Moreira RN - 11/15/2018 4:47 AM EDT OUTCOME EVALUATION NOTE: OUTCOME SUMMARY: Pt is intubated, sedated, and paralyzed at a RASS of -5. On Nimbex gtt at 2. Fentanyl gtt at 100. Midazolam gtt at 8. Bolus with PRN midazolam x2 for change in vitals with turns. TOF is 0/4 but nimbex remains unchanged for vent sync. Pt remains in VC on vent with TV 270, Rate of 30, PEEP of 12, andFI02 40%. ABG drawn at 0600. Pt remains NSR. BP stable. Adequate UOP. Finger sticks done q4h, no insulin given. Afebrile. remains at bedside. PLAN MOVING FORWARD: Continue to Monitor. Wean supportive care. Trend ABGs. INDIVIDUALIZED FALL PREVENTION INTERVENTIONS: Patient-specific fall risk factors per assessment: [current deficits]: Lines and drains. Assistance [level of assistance required for transfers and ambulation]: 2x person assist. Supervision [direct monitoring required during toileting and ADLs]: Room near unit station. Frequent RN room checks. Surveillance [continuous indirect monitoring]: [place] [facility]. Patient-specific fall prevention interventions for sensory deficits provided, if applicable: [X] N/A * Plan of Care - Agueda Lanier RN - 11/14/2018 6:41 PM EDT Problem: Skin Integrity Impairment, Risk/Actual (Adult) Goal: Identify Related Risk Factors and Signs and Symptoms Related risk factors and signs and symptoms are identified upon initiation of Human Response Clinical Practice Guideline (CPG) Outcome: Ongoing (Interventions Implemented as Appropriate) 11/14/187 Skin Integrity Impairment, Risk/Actual Skin Integrity Impairment, Risk/Actual: Related Risk Factors edema;fluid/nutrition status;immobility;infection/disease process;medication effects;metabolic imbalance Goal: Skin Integrity/Wound Healing Patient will demonstrate the desired outcomes by discharge/transition of care. Outcome: Ongoing (Interventions Implemented as Appropriate) 11/14/187 Skin Integrity Impairment, Risk/Actual (Adult) Skin Integrity/Wound Healing making progress toward outcome Problem: Patient Care Overview Goal: Plan of Care Review Outcome: Ongoing (Interventions Implemented as Appropriate) 11/14/18 0800 Coping/Psychosocial Plan Of Care Reviewed With spouse OUTCOME EVALUATION NOTE: OUTCOME SUMMARY: Pt is ventilated, sedated and paralyzed. TOF 0/4, in sync with ventilator. Weaning off the Levophed, sedation changed from propofol to Versed. at Bedside, Son in also to visit. updated by the team during AM round. PLAN MOVING FORWARD: Trending ABG's INDIVIDUALIZED FALL PREVENTION INTERVENTIONS: Patient-specific fall risk factors per assessment: [current deficits]: multiple lines and tubes to be considered when moving. Assistance [level of assistance required for transfers and ambulation]: 2 person assist when turning side to side. Supervision [direct monitoring required during toileting and ADLs]: Pt safety maintained and free from falls/injury this shift. Environmental modifications one to ensure safety; bed locked in low position, side rails raised x4, HOB elevated appropriately, lighting adjusted for task safety, frequentsurveillance. Fall risk assessment completed. Surveillance [continuous indirect monitoring]: ICU frank monitor, alarms on and audible, room near nursing station, frequent visual checks. Patient-specific fall prevention interventions for sensory deficits provided, if applicable: yes Goal: Fall Prevention-Safe Patient Handling Outcome: Ongoing (Interventions Implemented as Appropriate) 11/14/1879911/14/18 1800 Anderson Fall Risk History of Falling 0 -- Secondary Diagnosis 15 -- Ambulatory Aids 0 -- Intravenous Therapy/Heparin/Saline Lock 20 -- Gait/Transferring 0 -- Mental Status 15 -- Score 50 -- OTHER Anderson Fall Risk High -- Restraint Interventions Safety Promotion/Fall Prevention -- safety round/check completed Activity Activity Type -- bedrest Activity Assistance Provided -- assistance, 2 people Goal: Infection Control Outcome: Ongoing (Interventions Implemented as Appropriate) 11/13/18214411/14/18 0811/14/18 1800 Safety Interventions Isolation Precautions -- -- droplet precautions maintained Infection Prevention -- environmental surveillance performed -- Coping Strategies Supportive Measures active listening utilized;positive reinforcement provided -- -- Goal: Discharge Needs Assessment Outcome: Ongoing (Interventions Implemented as Appropriate) 11/14/181826 Discharge Needs Assessment Concerns To Be Addressed no discharge needs identified Problem: Ventilation, Mechanical Invasive (Adult) Goal: Signs and Symptoms of Listed Potential Problems Will be Absent, Minimized or Managed (Ventilation, Mechanical Invasive) Signs and symptoms of listed potential problems will be absent, minimized or managed by discharge/transition of care (reference Ventilation, Mechanical Invasive (Adult) CPG). Outcome: Ongoing (Interventions Implemented as Appropriate) 11/14/181826 Ventilation, Mechanical Invasive Problems Assessed (Mechanical Ventilation, Invasive) all Problems Present (Mechanical Ventilation, Invasive) immobility;malnutrition * Initial Assessments - Yuridia Chapman RN - 11/14/2018 3:41 PM EDT Office of Care Management Initial Assessment Yuridia Chapman RN reviewed record and discussed patient with Care Team. Source of Information: family; CC Team, nursing staff, and medical record review Introduced self/reviewed role; services accepted. Reason for Hospitalization: Reason for Admission as Stated by Patient: pt intubated/ sedated. states for Breathing issues Patient accepted in transfer from [facility] for higher level of care for acute hypoxemic and hypercarbic respiratory failure. Past Medical History: Diagnosis Date ??? Allergy [...] acne Hospitalizations Within the Past 30 Days: [facility] Anticipated Length Of Stay (If known): 7 days; TBD pending response to CC interventions Current Decision-Making Capacity: unable; intubated and sedated Advance Care Planning: Code Status: Full No Advance Care Directive on file at [facility]. Since AD's have not been completed spouse José Manuel Pino (ph: [phone]/cell: [phone]) would be surrogate decision maker per [place] surrogate decision making law. Any patient receiving care at [facility] must abide by [place] law. The hierarchy for surrogate decision making is: (a) Patient???s spouse, or civil union partner or common law spouse unless there is a divorce proceeding, separation agreement, or restraining order limiting that person???s relationship with the patient. (b) Any adult son or daughter of the patient. (c) Either parent of the patient. (d) Any adult brother or sister of the patient. (e) Any adult grandchild of the patient. (f) Any grandparent of the patient. (g) Any adult aunt, uncle, niece, or nephew of the patient. (h) A close friend of the patient. (i) The agent with financial power of bankruptcy attorney or a conservator appointed in accordance with RSA 464-A. (j) The guardian of the patient???s estate. Current Coping/Education/Information Needs: to be determined Current Functional Ability: intubated, sedated, and paralyzed Functional Status Prior to Admission: modified independence in the community; home oxygen use for COPD (2-3 L baseline) Home Environment: single family, one-level mobile/modular home in [place], [place].; Social & Family Supports/Community Resources: family Behavioral Health History: history of depression managed by medication through his PCP Substance Use/Abuse: no mention of substance use or abuse Other Pertinent/Service Specific Information: to be assessed Health/Prescription Coverage: Primary Insurance: MEDICARE Secondary Insurance: Prescription Coverage: Medicaid [place] Preferred Pharmacy: [facility] in [place], [place] Other: [facility] outpatient Primary Care Provider: KIARA Jesus [phone] Patient/Caregiver Goals of Treatment: home Potential Needs for Transition of Care: Rehab/SNF: to be determined Home Health: to be determined DME: pending PT/OT evaluations Dialysis: not applicable Community Resources: aware Transportation: private vehicle Other: has home oxygen, re-certified for 2L/min continuous. Vendor is: [facility] Central Intake office: tel: [phone] [facility] [address] [place] [address] [employer] provides her oxygen supplies; per staff, Poppy has been re-certified at 2L/min continuous and has portable concentrator unit for home and travel. This unit is only able to accommodate liter flow up to 3L/min. As such, she will need new O2 equipment if she has increased needs upon discharge. Anticipated Barriers to Discharge/Special Considerations: none readily identified but will continueto monitor; triggers for Palliative Care consultation with severe COPD requiring oxygen dependence prior to admission. Assessment: 58 yo female with known COPD accepted in transfer from [facility] for higher level of care 2/2acute respiratory failure in the setting of recent influenza. She initially was intubated (agreed to intubation at [facility]) and sedated; now paralyzed for hemodynamic instability and on ARDS protocol. Plan: CM will continue to monitor progress, follow for continuity of care and assist with transition of care planning. Yuridia Chapman RN Pager: [phone] * Hospital Course - Coleman Cummings MD - 11/14/2018 12:23 PM EDT 58 y.o. female w/ PMH of COPD on home O2 2-3L, IBS, diabetes mellitus, and HTN who presented as a transfer from [facility] for ARDS in the setting of recent influenza. She was intubated and transferred here 11/13/18. PaO2: FiO2 about 150 initially and exhibiting poor compliance out of proportion to her depressed oxygenation with chest CT showing widespread interstitial and alveolar opacities. Modest hemodynamic instability with a mild pressor requirement. Acute kidney injury that initially improved. Anelevated BNP that could reflect right ventricular strain. She was paralyzed and not initially proned. Improved 11/15/18 with PaO2:FiO2 170 and Ppl 21, thus paralytics stopped. Sedation breakthrough on Versed 8/hr so tapering off and using propofol given respiratory improvement. * Med Student Progress Note - Kleber Amezcua Sepideh - 11/14/2018 7:13 AM EDT Images from the original note were not included. ICU Blue (#[id number]) Progress Note Patient info: Name: Poppy Pino : 1960 PCP: KIARA Jesus PCP phone number: [phone] Date of Admission: 11/13/2018 ( Hospital Day 1 day ) Responsible Attending:Vivian Valdez Jr., MD Active Hospital Problems Diagnosis ??? COPD exacerbation Resolved Hospital Problems No resolved problems to display. ID: Poppy Pino is a 58 y.o. female w/ PMH of COPD on home O2 2-3L, IBS, GERD, diabetes mellitus, and HTN who presented as a transfer from [facility] for acute hypoxemic and hypercarbic respiratory failure in the setting of recent influenza infection, now HD# 1. 24 Hour Events/Subjective: - added fentanyl / nimbex for vent synchrony - Influenza H1 pos - on oseltamivir - Started on ARDS protocol - FiO2 improving from 100 -> 50% Medications Scheduled Meds: ??? oseltamivir 30 mg Oral BID ??? vancomycin 1,250 mg Intravenous Q18H ??? heparin (Porcine) 5,000 Units Subcutaneous Q8H ROSEMARY ??? fentaNYL 25 mcg Intravenous Once And ??? shift total and Settings verification 1 each Intravenous 2 Times Daily - Shift Total ??? ipratropium-albuterol 3 mL Nebulization Q4H ROSEMARY ??? famotidine 20 mg Intravenous Daily ??? piperacillin-tazobactam 3.375 g Intravenous Q8H ??? cisatracurium 10 mg Intravenous Once Continuous Infusions: ??? NORepinephrine 8 mcg/min (11/14/18 0832) ??? cisatracurium (NIMBEX) (standard ADULT) infusion 2 mcg/kg/min (11/14/18 0800) ??? propofol 50 mcg/kg/min (11/14/18 0834) ??? fentaNYL 300 mcg/hr (11/14/18 0833) PRN Meds:.Assess AND fentaNYL AND fentaNYL AND fentaNYL AND shift total and Settings verification Objective: Vitals Last value Range last 24 hrs Temperature Temp: 36.9 ??C (98.4 ??F) Temp: [36.5 ??C (97.7 ??F)-36.9 ??C (98.4 ??F)] Heart Rate Heart Rate: 78 Heart Rate: [61-85] Blood Pressure BP: 108/67 BP: (69-130)/(42-89) Art Line BP BP (Arterial Line): 98/56 BP (Arterial Line): (92-102)/(51-56) MAP (NBP): [67 mmHg-99 mmHg] Respiratory Rate Resp: 30 Resp: [22-32] SpO2 SpO2: 96 % SpO2: [72 %-98 %] Oxygen Delivery Oxygen Therapy O2 Device: Ventilator FiO2 (%): 50 % Intake/Output Summary (Last 24 hours) at 11/14/2018 0854 Last data filed at 11/14/2018 0800 Gross per 24 hour Intake 919.27 ml Output 905 ml Net 14.27 ml Patient Vitals for the past 168 hrs: Weight 11/13/18 2252 82.4 kg (181 lb 10.5 oz) Physical Exam: Gen: NAD, sedated, paralyzed and intubated, RASS -5 CV: RRR. Normal S1 and S2. No M/R/G. Pulm: coarse breath sounds throughout Abd: normal bowel sounds. Soft, nondistended, nontender. Ext: no edema, clubbing, or cyanosis. Vent: Mode PEEP PS RR TV FIO2 MV VC 14 30 270 50 8.4 Lines: ETT NG PIV x2 Central lines - L Subclav Arterial line - L radial Pena Labs: Recent Labs 11/14/18 0850 11/13/18 2220 WBC 15.2* 16.2* HGB 9.3* 10.0* HCT 31.2* 32.4* PLATELET 247 225 Recent Labs 11/14/18 0520 11/13/18 2220 NA 143 140 K 4.9 4.9 CL 108* 105 CO2 23 22 BUN 24* 20* CREATININE 1.30* 1.33* GLUCOSE 186 -- CALCIUM 8.3* 8.6 MAGNESIUM -- 0.94 PHOS -- 5.6* Recent Labs 11/13/18 2220 AST 30 ALT 16 ALKPHOS 89 BILITOT 0.2 ProBNP - 2920 ABG (Arterial Blood Gas): 11/13/182220: 7.22 53 98 21.0 PF ratio 98 11/14/18 0140: 7.08 77 114 22.4 PF ratio 142 11/14/18 0522: 7.13 71 79 23 PF ratio 158 Microbiology: Microbiology Results (Last 30 days) Procedure Component Value Units Date/Time Legionella Urinary Antigen [[id number]] Collected: 11/13/180 Lab Status: Final result Specimen: Urine Updated: 11/14/18820 Legionella Urinary Antigen Negative Comment: A negative Legionella Urinary Antigen by EIA suggests no recent or current infection with L. pneumophila Serogroup 1. Antigen may not be present in urine in early infection, and the level of antigen present in the urine may be below the detection limit of the test. Sensitivity: 95% Specificity 95%. Lower Respiratory Culture Bronchial Alveolar Lavage [[id number]] Collected: 11/13/182214 Lab Status: Preliminary result Specimen: Bronchial Alveolar Lavage Updated: 11/14/18 0838 Gram Stain -- Few Neutrophils seen No squamous epithelial cells Rare mixed bacterial morphotypes suggestive of normal upper respiratory caryn Respiratory Panel PCR [[id number]] (Abnormal) Collected: 11/13/182214 Lab Status: Final result Specimen: Nasopharyngeal Swab Updated: 11/13/18 2350 Resp Panel Source SEAM PRESS OPERATOR Swab Resp Panel PCR Positive Comment: Respiratory Panels are performed on the [employer], using multiplexed PCR nucleic acid detection. Negative results do not preclude respiratory infection and should not be used as the sole basis for diagnosis, treatment or other management decisions. Adenovirus Not Detected Coronavirus HKU1 Not Detected Coronavirus NL63 Not Detected Coronavirus 229E Not Detected Coronavirus OC43 Not Detected Human Metapneumovirus Not Detected Human Rhino/Enterovirus Not Detected Influenza A Not Detected Influenza A H1 Not Detected Influenza A H1-2009 Detected Influenza A H3 Not Detected Influenza B Not Detected Parainfluenza 1 Not Detected Parainfluenza 2 Not Detected Parainfluenza 3 Not Detected Parainfluenza 4 Not Detected Respiratory Syncytial Virus Not Detected Chlamydophila pneumoniae Not Detected Mycoplasma pneumoniae Not Detected Pertinent radiology/diagnostic studies: Xr Abdomen 1 View (generic) Result Date: 11/13/2018 FINDINGS/IMPRESSION: OG tube tip projects over the fundus, although the side port projects over theapparently region of the gastric cardia; consider slight advancement. Xr Chest Pa Or Ap 1 View Result Date: 11/13/2018 Diffuse airspace and interstitial opacities; differential considerations include pneumonia (bacterial, atypical/mycoplasma, viral, pneumocystic), pulmonary edema, ARDS, pulmonary alveolar proteinosis, pulmonary hemorrhage, acute interstitial pneumonia, hypersensitivity or drug induced pneumonitis, among other possible etiologies. CTA Chest 11/12/18 (OSH) 1. Diffuse alveolar and interstitial lung opacities could be severe alveolar and interstitial pulmonary edema or atypical infection 2. 2.8 cm left adrenal nodule. If there are no old studies to document stability then CT or MRI adrenal mass protocol could be performed Echo 11/12/18 (OSH): - mild LVH, EF 60-65% - RV normal size, - diastolic / systolic septal flattening, - Mod-severe Tricuspid regurg - PSP 55-60 ASSESSMENT/PLAN: Poppy Pino is a 58 y.o. female w/ PMH of COPD on home O2 2-3L, IBS, diabetes mellitus, and HTNwho presented as a transfer from [facility] for acute hypoxemic and hypercarbic respiratory failure, withARDS and H1 influenza infection vs secondary bacterial pneumomia, now HD# 1 Currently on ARDS protocol, with improving P/F ratio and adequate oxygenation but continued respiratory acidosis. There is concern for continued influenza treatment despite previous course of tamiflu (raising possible incomplete treatment or resistance) vs secondary bacterial infection. Major Plans for Today: - Change propofol to Versed - Decrease fentanyl to reduce possible chest wall rigidity - Continue ARDS protocol but no prone positioning at this time - Continue Vanc, Zosyn, and Tamiflu Neuro #sedation - D/c propofol and transition to midazolam 7mgx1 then 5mg/hr - Decreased fentanyl gtt to upper limit 100 #paralytics - Continue Nimbex for vent synchrony (change to titratable protocol for Train of Four 0/4) Cardiovascular # Hypotension Occurred after sedation with propofol - Continue levophed, wean as tolerated for MAP goal >65 - If continued hypotension, will add Vasopressin to decrease Levophed dose - Holding home htn medication #Volume overload 2/2 HFpEF? Increased proBNP, Echo as OSH with diastolic / systolic septal flattening, mod- sev TR, high PSP. Lasix 40mg given 4/4, with some output but overall net even - Will given lasix 40mg x1 again with goal to be slightly fluid negative Pulmonary #ARDS - Continue ARDS protocol, however will delay prone positioning for now given adequate oxygenation - Check ABG now #COPD exacerbation - Holding steroids in setting of influenza infection - Duonebs q4hr Renal/Fluid/Electrolytes # ANGE due to pre-renal vs ATN - Cr improving - Monitor Lytes, BMP daily #Resp Acidosis with metabolic compensation - Sodium bicarb 650mg via NG tube q6hr Gastrointestinal/Metabolic/Nutrition # hx of IBS/ GERD - D/C famotidine and switch to PPI (on chronically at home and for GI prophylaxis) - holding home IBS meds #DM - SSI and q4hr BG checks Hematology/Infection # H1 influenza infection / Secondary bacterial pneumonia - Continue Tamiflu - Consult ID on Tamiflu duration or need to switch anti-viral in setting of questionable resistance? - Continue Vancomycin and Zosyn for coverage of secondary pneumonia and pseudomonal coverage # Routine Diet: NPO DVT PPX: SubQ Heparin GI PPX: Protonix Activity: bedrest CODE STATUS: Full Code Dispo- Continue ICU level care Kleber Amezcua, M4 11/14/2018 Blue Team #[id number] * Plan of Care - Yana Moreira RN - 11/14/2018 6:49 AM EDT OUTCOME EVALUATION NOTE: OUTCOME SUMMARY: Pt is intubated, sedated, and paralyzed at a RASS -5. On Nimbex gtt at 2. Propofol gtt at 50. TOF is a 0/4 but nimbex remains unchanged per MD order for vent synchrony. Pt remains in VC with TV 250, a Rate 28, PEEP of 16, FiO2 of 55%. ABGs trended. Pt remains NSR. BP stable with levo at 10. Clawson placed at bedside by MD. NG advanced 2 cm to 60 at the nare. Lasix was given 1x during shift with good effect. Afebrile. PLAN MOVING FORWARD: Continue to monitor. Wean supportive care. Titrate pressors. INDIVIDUALIZED FALL PREVENTION INTERVENTIONS: Patient-specific fall risk factors per assessment: [current deficits]: Lines and drains. Assistance [level of assistance required for transfers and ambulation]: 2x person assist. Supervision [direct monitoring required during toileting and ADLs]: Room near unit station. Frequent RN room checks. Surveillance [continuous indirect monitoring]: Frank ICU monitor. Patient-specific fall prevention interventions for sensory deficits provided, if applicable: [X] N/A * Consult Note - Natali Amin [facility] - 11/14/2018 12:16 AM EDT Clinical Pharmacist Note-VancFD Poppy Del Cid Arnoldo [id number] 1960 Poppyhéctor Pino is a 58 y.o. femalewho is starting antibiotic therapy which includes intravenous vancomycin. Based on a review of the patient???s chart and/or conversation with the patient???s providers vancomycin is being used for empiric coverage of pneumonia with a targeted goal of 15 - 20 mcg/mL. The following Pharmacokinetic data has been evaluated: Wt Readings from Last 1 Encounters: 11/13/18 82.4 kg (181 lb 10.5 oz) Ht Readings from Last 1 Encounters: 11/13/18 160 cm (5' 2.99) Creatinine (mg/dL) Date Value 11/13/2018 1.33 (H) Estimated Creatinine Clearance: 48 mL/min (A) (based on SCr of 1.33 mg/dL (H)). (Cockcroft & Gault calculation) Dosing recommendations: ??? Based on this information, vancomycin therapy will be initiated with a one- time dose of 1,250 mg to be given now ??? A full dosing regimen will be ordered upon complete pharmacist consultation to follow. We will continue to monitor the patient as long as he/she remains on vancomycin therapy. Thank you for this consult and please page the care area pharmacist with any questions you may have. Alternately, during off-hours (9p-7a) you may call [phone] to contact a pharmacist. NATALI AMIN RPH documented in this encounter Plan of Treatment Not on file documented as of this encounter Procedures Procedure Name Priority Date/Time Associated Diagnosis Comments COMMUNICATIONS SENIOR ASSOCIATE SCAN 11/26/2018 12:00 AM EDT POCT GLUCOSE Routine 11/25/2018 11:41 AM EDT HEMOGRAM Routine 11/25/2018 7:51 AM EDT DIFFERENTIAL, AUTOMATED Routine 11/25/2018 7:51 AM EDT CBC (WITH DIFF) Routine 11/25/2018 7:51 AM EDT POCT GLUCOSE Routine 11/25/2018 7:22 AM EDT BASIC METABOLIC PANEL Routine 11/25/2018 5:33 AM EDT POCT GLUCOSE Routine 11/25/2018 4:13 AM EDT POCT GLUCOSE Routine 11/24/2018 11:26 PM EDT POCT GLUCOSE Routine 11/24/2018 7:32 PM EDT POCT GLUCOSE Routine 11/24/2018 4:22 PM EDT POCT GLUCOSE Routine 11/24/2018 11:57 AM EDT HEMOGRAM Routine 11/24/2018 11:44 AM EDT DIFFERENTIAL, AUTOMATED Routine 11/24/2018 11:44 AM EDT CBC (WITH DIFF) Routine 11/24/2018 11:44 AM EDT BASIC METABOLIC PANEL Routine 11/24/2018 11:44 AM EDT POCT GLUCOSE Routine 11/24/2018 7:29 AM EDT POCT GLUCOSE Routine 11/24/2018 4:29 AM EDT POCT GLUCOSE Routine 11/23/2018 11:11 PM EDT POCT GLUCOSE Routine 11/23/2018 7:22 PM EDT POCT GLUCOSE Routine 11/23/2018 4:24 PM EDT POCT GLUCOSE Routine 11/23/2018 11:46 AM EDT HEMOGRAM Routine 11/23/2018 8:05 AM EDT DIFFERENTIAL, AUTOMATED Routine 11/23/2018 8:05 AM EDT CBC (WITH DIFF) Routine 11/23/2018 8:05 AM EDT BASIC METABOLIC PANEL Routine 11/23/2018 8:05 AM EDT POCT GLUCOSE Routine 11/23/2018 7:25 AM EDT POCT GLUCOSE Routine 11/23/2018 3:35 AM EDT POCT GLUCOSE Routine 11/22/2018 11:58 PM EDT POCT GLUCOSE Routine 11/22/2018 7:52 PM EDT POCT GLUCOSE Routine 11/22/2018 4:23 PM EDT POCT GLUCOSE Routine 11/22/2018 11:30 AM EDT _URINALYSIS WITH MICRSOCOPIC Routine 11/22/2018 11:26 AM EDT POCT GLUCOSE Routine 11/22/2018 7:36 AM EDT SCAN, PERIPHERAL BLOOD Routine 11/22/2018 7:15 AM EDT HEMOGRAM Routine 11/22/2018 7:15 AM EDT DIFFERENTIAL, AUTOMATED Routine 11/22/2018 7:15 AM EDT CBC (WITH DIFF) Routine 11/22/2018 7:15 AM EDT BASIC METABOLIC PANEL Routine 11/22/2018 7:15 AM EDT POCT GLUCOSE Routine 11/22/2018 3:29 AM EDT POCT GLUCOSE Routine 11/21/2018 11:05 PM EDT POCT GLUCOSE Routine 11/21/2018 7:15 PM EDT POCT GLUCOSE Routine 11/21/2018 3:55 PM EDT POCT GLUCOSE Routine 11/21/2018 11:36 AM EDT POCT GLUCOSE Routine 11/21/2018 7:54 AM EDT HEMOGRAM Routine 11/21/2018 6:17 AM EDT DIFFERENTIAL, AUTOMATED Routine 11/21/2018 6:17 AM EDT CBC (WITH DIFF) Routine 11/21/2018 6:17 AM EDT BASIC METABOLIC PANEL Routine 11/21/2018 6:17 AM EDT POCT GLUCOSE Routine 11/21/2018 3:52 AM EDT POCT GLUCOSE Routine 11/20/2018 11:18 PM EDT POCT GLUCOSE Routine 11/20/2018 8:03 PM EDT POCT GLUCOSE Routine 11/20/2018 4:19 PM EDT POCT GLUCOSE Routine 11/20/2018 12:47 PM EDT POCT GLUCOSE Routine 11/20/2018 8:28 AM EDT POCT GLUCOSE Routine 11/20/2018 3:37 AM EDT HEMOGRAM Routine 11/20/2018 1:35 AM EDT DIFFERENTIAL, AUTOMATED Routine 11/20/2018 1:35 AM EDT CBC (WITH DIFF) Routine 11/20/2018 1:35 AM EDT CK Routine 11/20/2018 1:35 AM EDT BASIC METABOLIC PANEL Routine 11/20/2018 1:35 AM EDT BLOOD GAS ARTERIAL POC Routine 11/19/2018 11:35 PM EDT POCT GLUCOSE Routine 11/19/2018 11:20 PM EDT XR CHEST ONE VIEW Timed 11/19/2018 8:1 2 PM EDT POCT GLUCOSE Routine 11/19/2018 7:55 PM EDT POCT GLUCOSE Routine 11/19/2018 3:58 PM EDT XR CHEST ONE VIEW STAT 11/19/2018 3:5 4 PM EDT POCT GLUCOSE Routine 11/19/2018 11:48 AM EDT EXTUBATE Routine 11/19/2018 11:11 AM EDT EXTUBATE Routine 11/19/2018 8:52 AM EDT POCT GLUCOSE Routine 11/19/2018 7:56 AM EDT POCT GLUCOSE Routine 11/19/2018 3:46 AM EDT HEMOGRAM Routine 11/19/2018 3:45 AM EDT DIFFERENTIAL, AUTOMATED Routine 11/19/2018 3:45 AM EDT CBC (WITH DIFF) Routine 11/19/2018 3:45 AM EDT BASIC METABOLIC PANEL Routine 11/19/2018 3:45 AM EDT POCT GLUCOSE Routine 11/19/2018 12:15 AM EDT MAGNESIUM STAT 11/18/2018 9:40 PM EDT BASIC METABOLIC PANEL STAT 11/18/2018 9:40 PM EDT POCT GLUCOSE Routine 11/18/2018 7:25 PM EDT EKG 12-LEAD Routine 11/18/2018 6:46 PM EDT Screening for cardiovascular condition POCT GLUCOSE Routine 11/18/2018 3:30 PM EDT POCT GLUCOSE Routine 11/18/2018 12:06 PM EDT POCT GLUCOSE Routine 11/18/2018 7:53 AM EDT BLOOD GAS ARTERIAL POC Routine 11/18/2018 7:53 AM EDT POCT GLUCOSE Routine 11/18/2018 4:07 AM EDT HEMOGRAM Routine 11/18/2018 12:30 AM EDT DIFFERENTIAL, AUTOMATED Routine 11/18/2018 12:30 AM EDT CBC (WITH DIFF) Routine 11/18/2018 12:30 AM EDT TRIGLYCERIDE Routine 11/18/2018 12:30 AM EDT PHOSPHORUS Routine 11/18/2018 12:30 AM EDT MAGNESIUM Routine 11/18/2018 12:30 AM EDT CK Routine 11/18/2018 12:30 AM EDT BASIC METABOLIC PANEL Routine 11/18/2018 12:30 AM EDT POCT GLUCOSE Routine 11/18/2018 12:26 AM EDT POCT GLUCOSE Routine 11/17/2018 8:08 PM EDT POCT GLUCOSE Routine 11/17/2018 4:08 PM EDT BLOOD CULTURE Routine 11/17/2018 2:20 PM EDT LOWER RESPIRATORY CULTURE Routine 11/17/2018 1:49 PM EDT BLOOD CULTURE Routine 11/17/2018 12:30 PM EDT POCT GLUCOSE Routine 11/17/2018 11:56 AM EDT XR CHEST ONE VIEW Routine 11/17/2018 11: 36 AM EDT CK Routine 11/17/2018 11:25 AM EDT POCT GLUCOSE Routine 11/17/2018 7:54 AM EDT BLOOD GAS ARTERIAL POC Routine 11/17/2018 7:32 AM EDT POCT GLUCOSE Routine 11/17/2018 3:57 AM EDT HEMOGRAM Routine 11/17/2018 1:25 AM EDT DIFFERENTIAL, AUTOMATED Routine 11/17/2018 1:25 AM EDT CBC (WITH DIFF) Routine 11/17/2018 1:25 AM EDT BASIC METABOLIC PANEL Routine 11/17/2018 1:25 AM EDT POCT GLUCOSE Routine 11/17/2018 12:16 AM EDT POCT GLUCOSE Routine 11/16/2018 8:34 PM EDT POCT GLUCOSE Routine 11/16/2018 3:53 PM EDT POCT GLUCOSE Routine 11/16/2018 12:07 PM EDT XR CHEST ONE VIEW Routine 11/16/2018 11: 50 AM EDT BLOOD GAS ARTERIAL POC Routine 11/16/2018 10:55 AM EDT POCT GLUCOSE Routine 11/16/2018 10:23 AM EDT LOWER RESPIRATORY CULTURE Routine 11/16/2018 10:09 AM EDT POCT GLUCOSE Routine 11/16/2018 8:05 AM EDT POCT GLUCOSE Routine 11/16/2018 3:50 AM EDT BMP W/FASTING GLUCOSE Routine 11/16/2018 2:25 AM EDT HEMOGRAM Routine 11/16/2018 2:25 AM EDT DIFFERENTIAL, AUTOMATED Routine 11/16/2018 2:25 AM EDT CBC (WITH DIFF) Routine 11/16/2018 2:25 AM EDT MAGNESIUM Routine 11/16/2018 2:25 AM EDT POCT GLUCOSE Routine 11/16/2018 12:51 AM EDT BLOOD GAS ARTERIAL POC Routine 11/15/2018 10:47 PM EDT POCT GLUCOSE Routine 11/15/2018 9:20 PM EDT POCT GLUCOSE Routine 11/15/2018 3:19 PM EDT POCT GLUCOSE Routine 11/15/2018 11:40 AM EDT METHYLMALONIC ACID, SERUM Routine 11/15/2018 9:50 AM EDT IRON AND TIBC Routine 11/15/2018 9:50 AM EDT RETICULOCYTE COUNT Routine 11/15/2018 9: 50 AM EDT FOLATE, SERUM Routine 11/15/2018 9:50 AM EDT FERRITIN Routine 11/15/2018 9:50 AM EDT VITAMIN B12 Routine 11/15/2018 9:50 AM EDT POCT GLUCOSE Routine 11/15/2018 7:45 AM EDT BLOOD GAS ARTERIAL POC Routine 11/15/2018 6:13 AM EDT POCT GLUCOSE Routine 11/15/2018 3:53 AM EDT BMP W/FASTING GLUCOSE Routine 11/15/2018 12:35 AM EDT HEMOGRAM Routine 11/15/2018 12:35 AM EDT DIFFERENTIAL, AUTOMATED Routine 11/15/2018 12:35 AM EDT CBC (WITH DIFF) Routine 11/15/2018 12:35 AM EDT POCT GLUCOSE Routine 11/15/2018 12:34 AM EDT POCT GLUCOSE Routine 11/14/2018 7:54 PM EDT BLOOD GAS ARTERIAL POC Routine 11/14/2018 4:59 PM EDT POCT GLUCOSE Routine 11/14/2018 4:18 PM EDT POCT GLUCOSE Routine 11/14/2018 12:08 PM EDT BLOOD GAS ARTERIAL POC Routine 11/14/2018 10:26 AM EDT POCT GLUCOSE Routine 11/14/2018 8:51 AM EDT SCAN, PERIPHERAL BLOOD Routine 11/14/2018 8:50 AM EDT HEMOGRAM Routine 11/14/2018 8:50 AM EDT DIFFERENTIAL, AUTOMATED Routine 11/14/2018 8:50 AM EDT CBC (WITH DIFF) Routine 11/14/2018 8:50 AM EDT BLOOD GAS ARTERIAL POC Routine 11/14/2018 5:22 AM EDT BASIC METABOLIC PANEL Routine 11/14/2018 5:20 AM EDT POCT GLUCOSE Routine 11/14/2018 2:33 AM EDT BLOOD CULTURE STAT 11/14/2018 1:43 AM EDT BLOOD GAS ARTERIAL POC Routine 11/14/2018 1:40 AM EDT LEGIONELLA URINARY ANTIGEN Routine 11/13/2018 11:50 PM EDT UREA NITROGEN, URINE, RANDOM Routine 11/13/2018 11:50 PM EDT ELECTROLYTES, URINE, RANDOM Routine 11/13/2018 11:50 PM EDT CREATININE, URINE, RANDOM Routine 11/13/2018 11:50 PM EDT URINALYSIS MICROSCOPIC EXAM STAT 11/13/2018 11:39 PM EDT URINALYSIS WITH REFLEX CULTURE STAT 11/13/2018 11:39 PM EDT EKG 12-LEAD STAT 11/13/2018 11:11 PM EDT Hypertension, unspecified type BLOOD CULTURE Routine 11/13/2018 10:40 PM EDT BLOOD GAS ARTERIAL POC Routine 11/13/2018 10:21 PM EDT CMP W/FASTING GLUCOSE STAT 11/13/2018 10:20 PM EDT HEMOGRAM STAT 11/13/2018 10:20 PM EDT DIFFERENTIAL, AUTOMATED STAT 11/13/2018 10:20 PM EDT APTT STAT 11/13/2018 10:20 PM EDT PROTHROMBIN TIME STAT 11/13/2018 10:2 0 PM EDT CBC (WITH DIFF) STAT 11/13/2018 10:20 PM EDT TROPONIN STAT 11/13/2018 10:20 PM EDT TSH Routine 11/13/2018 10:20 PM EDT T4, FREE Routine 11/13/2018 10:20 PM EDT PHOSPHORUS STAT 11/13/2018 10:20 PM EDT PRO-BRAIN NATRIURETIC PEPTIDE Routine 11/13/2018 10:20 PM EDT MAGNESIUM STAT 11/13/2018 10:20 PM EDT LDL CHOLESTEROL, DIRECT Routine 11/13/2018 10:20 PM EDT HDL/CHOL PROFILE Routine 11/13/2018 10:2 0 PM EDT HEMOGLOBIN A1C Routine 11/13/2018 10:20 PM EDT CK Routine 11/13/2018 10:20 PM EDT XR ABDOMEN 1 VIEW STAT 11/13/2018 10: 19 PM EDT RESPIRATORY PANEL PCR Routine 11/13/2018 10:15 PM EDT LOWER RESPIRATORY CULTURE STAT 11/13/2018 10:15 PM EDT XR CHEST ONE VIEW STAT 11/13/2018 10: 05 PM EDT documented in this encounter Results * SCAN DOC: COMMUNICATIONS SENIOR ASSOCIATE (11/26/2018 12:00 AM EDT) Anatomical Region Laterality Modality Other Narrative 11/26/2018 12:00 AM EDT Ordered by an unspecified provider. Scanning Provider MEDIA MGR SCAN EXT O RDR/RSLT * POCT Glucose (11/25/2018 11:41 AM EDT) Glucose, POC 129 65 - 199 mg/dL [facility] Comment: Supplemental ranges: <140 mg/dL before meals <180 mg/dL all other times of the day Blood specimen (specimen) 11/25/2018 11:41 AM EDT 11/25/2018 11:41 AM EDT Kim Dick MD POINT OF CARE TEST O RDERABLES [facility] [place] [address] * (ABNORMAL) Differential, Automated (11/25/2018 7:51 AM EDT) Neutrophil % 66.9 % [facility] Neutrophil Absolute 6.68(H) 1.70 - 6.10 x10(3)/[facility] Lymph % 22.7 % [facility] Lymphocytes Abs 2.3 0.9 - 3.2 x10(3)/[facility] Monocyte % 7.7 % [facility] Monocyte Abs 0.8 0.3 - 0.9 x10(3)/[facility] Eos % 1.2 % [facility] Eosinophils Abs 0.1 0.0 - 0.4 x10(3)/[facility] Basophil % 0.7 % [facility] Baso Absolute 0.1 0.0 - 0.1 x10(3)/[facility] Immature Gran % 0.80 % [facility] Comment: Immature granulocytes(IG's)percentage and absolute count will include metamyelocytes, myelocytes, and promyelocytes. Blood smears from CBCs yielding IG's will be scanned manually for concordance. If this scan disagrees with the automated IG or if promyelocytes are noted, a manual differential will be performed. Immature Gran Absolute 0.08(H) 0.00 - 0.04 x10(3)/[facility] Blood specimen (specimen) 11/25/2018 7:51 AM EDT 11/25/2018 8:00 AM EDT Narrative Resulting Agency Comment Spec In Lab Marcial Carter MD HEMATOLOGY ORDERA BLES [facility] [place] [address] * (ABNORMAL) Hemogram (11/25/2018 7:51 AM EDT) White Blood Cell 10.0(H) 4.0 - 9.5 x10(3)/[facility] Red Blood Cell 3.89(L) 4.00 - 5.21 x10(6)/mc L [facility] Hemoglobin 10.5(L) 11.7 - 15.5 gm/dL [facility] Hematocrit 33.5(L) 35.7 - 45.8 % [facility] Mean Cell Volume 86.1 82.6 - 94.4 fL [facility] Mean Cell Hemoglobin 27.0(L) 27.1 - 32.0 pg [facility] Mean Cell Hemoglobin Concentration 31.3(L) 31.7 - 35.0 gm/dL [facility] Platelet 347 145 - 357 x10(3)/[facility] RDW Standard Deviation 53.8(H) 37.0 - 46.0 [facility] RDW coefficient of variation 17.4(H) 11.5 - 14.1 % [facility] Mean Platelet Volume 10.9 7.6 - 12.9 [facility] LABORATORY NRBC% auto 0.0 % [facility] LABORATORY NRBC Absolute 0.000 0.000 - 0.000 x10(3)/[facility] LABORATORY Blood specimen (specimen) 11/25/2018 7:51 AM EDT 11/25/2018 8:00 AM EDT Narrative Resulting Agency Comment Spec In Lab Marcial Carter MD HEMATOLOGY ORDERA BLES [facility] [place] [address] * POCT Glucose (11/25/2018 7:22 AM EDT) Glucose, POC 103 65 - 199 mg/dL [facility] Comment: Supplemental ranges: <140 mg/dL before meals <180 mg/dL all other times of the day Blood specimen (specimen) 11/25/2018 7:22 AM EDT 11/25/2018 7:22 AM EDT Kim Dick MD POINT OF CARE TEST O RDERABLES [facility] [place] [address] * (ABNORMAL) Basic Metabolic Panel (non-fasting) (11/25/2018 5:33 AM EDT) Glucose 117 65 - 199 mg/dL [facility] Comment:Diabetes: >=200 mg/d L plus symptoms Blood Urea Nitrogen 21(H) 8 - 18 mg/dL [facility] Creatinine 0.91 0.70 - 1.20 mg/dL [facility] Sodium 138 135 - 145 mmol/L [facility] Potassium 4.4 3.5 - 5.0 mmol/L [facility] Comment: Please note: ??Patients with WBC >100,000 may have falsely elevated Potassium levels. ??For accurate Potassium quantification in these patients send serum separator tube (gold top) for subsequent determinations. ??Contact the Clinical Chemistry Laboratory if there are any questions. Chloride 104 98 - 107 mmol/L [facility] Carbon Dioxide 19(L) 22 - 31 mmol/L [facility] Anion Gap 15 5 - 15 mmol/L [facility] Calcium 9.4 8.5 - 10.5 mg/dL [facility] Est Glomerular Filtration Rate 71 >=60 mL/min/1. 73 m?? [facility] Comment: The eGFR was calculated using the CKD-EPI equation. As with all creatinine based estimates of kidney function, eGFR values calculated with the CKD-EPI equation are not accurate in patients with acute kidney failure, extremes of body mass or the acutely ill. [email or web address] eGFR 82 >=60 mL/min/1. 73 m?? [facility] Comment: The eGFR was calculated using the CKD-EPI equation. As with all creatinine based estimates of kidney function, eGFR values calculated with the CKD-EPI equation are not accurate in patients with acute kidney failure, extremes of body mass or the acutely ill. [email or web address] Blood specimen (specimen) 11/25/2018 5:33 AM EDT 11/25/2018 5:44 AM EDT Narrative Resulting Agency Comment Spec In Lab Justin Amezcua MD CHEMISTRY ORDERABLES Performing Organization Address [facility]/ZIP Co de Phone Number [facility] [place] [address] * POCT Glucose (11/25/2018 4:13 AM EDT) Glucose, POC 111 65 - 199 mg/dL [facility] Comment: Supplemental ranges: <140 mg/dL before meals <180 mg/dL all other times of the day Blood specimen (specimen) 11/25/2018 4:13 AM EDT 11/25/2018 4:13 AM EDT Kim Dick MD POINT OF CARE TEST [place] PEREYRA Performing Organization Address [facility] Co de Phone Number [facility] [place] [address] * POCT Glucose (11/24/2018 11:26 PM EDT) Glucose, POC 119 65 - 199 mg/dL [facility] Comment: Supplemental ranges: <140 mg/dL before meals <180 mg/dL all other times of the day Blood specimen (specimen) 11/24/2018 11:26 PM EDT 11/24/2018 11:26 PM EDT Kim Dick MD POINT OF CARE TEST O RODDY Performing Organization Address [facility]/ZIP Co de Phone Number [facility] [place] [address] * POCT Glucose (11/24/2018 7:32 PM EDT) Glucose, POC 159 65 - 199 mg/dL [facility] Comment: Supplemental ranges: <140 mg/dL before meals <180 mg/dL all other times of the day Blood specimen (specimen) 11/24/2018 7:32 PM EDT 11/24/2018 7:32 PM EDT Kim Dick MD POINT OF CARE TEST O RODDY Performing Organization Address [facility] Co de Phone Number [facility] [place] [address] * POCT Glucose (11/24/2018 4:22 PM EDT) Glucose, POC 108 65 - 199 mg/dL [facility] Comment: Supplemental ranges: <140 mg/dL before meals <180 mg/dL all other times of the day Blood specimen (specimen) 11/24/2018 4:22 PM EDT 11/24/2018 4:22 PM EDT Kim Dick MD POINT OF CARE TEST O RODDY Performing Organization Address [facility] Co de Phone Number [facility] [place] [address] * POCT Glucose (11/24/2018 11:57 AM EDT) Glucose, POC 105 65 - 199 mg/dL [facility] Comment: Supplemental ranges: <140 mg/dL before meals <180 mg/dL all other times of the day Blood specimen (specimen) 11/24/2018 11:57 AM EDT 11/24/2018 11:57 AM EDT Kim Dick MD POINT OF CARE TEST O RODDY Performing Organization Address [facility] Co de Phone Number [facility] [place] [address] * (ABNORMAL) Differential, Automated (11/24/2018 11:44 AM EDT) Neutrophil % 65.4 % [facility] Neutrophil Absolute 6.22(H) 1.70 - 6.10 x10(3)/[facility] LABORATORY Lymph % 24.5 % [facility] Lymphocytes Abs 2.3 0.9 - 3.2 x10(3)/[facility] LABORATORY Monocyte % 8.3 % [facility] Monocyte Abs 0.8 0.3 - 0.9 x10(3)/[facility] LABORATORY Eos % 0.6 % [facility] Eosinophils Abs 0.1 0.0 - 0.4 x10(3)/[facility] LABORATORY Basophil % 0.4 % [facility] Baso Absolute 0.0 0.0 - 0.1 x10(3)/[facility] LABORATORY Immature Gran % 0.80 % [facility] Comment: Immature granulocytes(IG's)percentage and absolute count will include metamyelocytes, myelocytes, and promyelocytes. Blood smears from CBCs yielding IG's will be scanned manually for concordance. If this scan disagrees with the automated IG or if promyelocytes are noted, a manual differential will be performed. Immature Gran Absolute 0.08(H) 0.00 - 0.04 x10(3)/[facility] LABORATORY Blood specimen (specimen) 11/24/2018 11:44 AM EDT 11/24/2018 12:21 PM EDT Narrative Resulting Agency Comment Spec In Lab Harsha Tejeda MD HEMATOLOGY ORDERAB LES [facility] [place] [address] * (ABNORMAL) Hemogram (11/24/2018 11:44 AM EDT) White Blood Cell 9.5 4.0 - 9.5 x10(3)/[facility] LABORATORY Red Blood Cell 4.07 4.00 - 5.21 x10(6)/[facility] LABORATORY Hemoglobin 11.1(L) 11.7 - 15.5 gm/dL [facility] Hematocrit 35.2(L) 35.7 - 45.8 % [facility] Mean Cell Volume 86.5 82.6 - 94.4 fL [facility] Mean Cell Hemoglobin 27.3 27.1 - 32.0 pg [facility] Mean Cell Hemoglobin Concentration 31.5(L) 31.7 - 35.0 gm/dL [facility] Platelet 328 145 - 357 x10(3)/mc L [facility] RDW Standard Deviation 53.9(H) 37.0 - 46.0 fL [facility] RDW coefficient of variation 17.2(H) 11.5 - 14.1 % [facility] Mean Platelet Volume 11.6 7.6 - 12.9 fL [facility] NRBC% auto 0.0 % [facility] NRBC Absolute 0.000 0.000 - 0.000 x10(3)/mc L [facility] Blood specimen (specimen) 11/24/2018 11:44 AM EDT 11/24/2018 12:21 PM EDT Narrative Resulting Agency Comment Spec In Lab Harsha Tejeda MD HEMATOLOGY ORDERAB LES [facility] [place] [address] * (ABNORMAL) Basic Metabolic Panel (non-fasting) (11/24/2018 11:44 AM EDT) Glucose 112 65 - 199 mg/dL [facility] Comment:Diabetes: >=200 mg/d L plus symptoms Blood Urea Nitrogen 26(H) 8 - 18 mg/dL [facility] Creatinine 0.97 0.70 - 1.20 mg/dL [facility] Sodium 138 135 - 145 mmol/L [facility] Potassium 4.4 3.5 - 5.0 mmol/L [facility] Comment: Please note: ??Patients with WBC >100,000 may have falsely elevated Potassium levels. ??For accurate Potassium quantification in these patients send serum separator tube (gold top) for subsequent determinations. ??Contact the Clinical Chemistry Laboratory if there are any questions. Chloride 102 98 - 107 mmol/L [facility] Carbon Dioxide 21(L) 22 - 31 mmol/L [facility] Anion Gap 15 5 - 15 mmol/L [facility] Calcium 9.8 8.5 - 10.5 mg/dL [facility] Est Glomerular Filtration Rate 65 >=60 mL/min/1. 73 m?? [facility] Comment: The eGFR was calculated using the CKD-EPI equation. As with all creatinine based estimates of kidney function, eGFR values calculated with the CKD-EPI equation are not accurate in patients with acute kidney failure, extremes of body mass or the acutely ill. [email or web address] eGFR 76 >=60 mL/min/1. 73 m?? [facility] Comment: The eGFR was calculated using the CKD-EPI equation. As with all creatinine based estimates of kidney function, eGFR values calculated with the CKD-EPI equation are not accurate in patients with acute kidney failure, extremes of body mass or the acutely ill. [email or web address] Blood specimen (specimen) 11/24/2018 11:44 AM EDT 11/24/2018 12:21 PM EDT Narrative Resulting Agency Comment Spec In Lab Kim Dick MD CHEMISTRY ORDERABLES [facility] [place] [address] * POCT Glucose (11/24/2018 7:29 AM EDT) Glucose, POC 119 65 - 199 mg/dL [facility] Comment: Supplemental ranges: <140 mg/dL before meals <180 mg/dL all other times of the day Blood specimen (specimen) 11/24/2018 7:29 AM EDT 11/24/2018 7:29 AM EDT Kim Dick MD POINT OF CARE TEST O RDERABLES Performing Organization Address [facility] Co de Phone Number [facility] [place] [address] * POCT Glucose (11/24/2018 4:29 AM EDT) Glucose, POC 133 65 - 199 mg/dL [facility] Comment: Supplemental ranges: <140 mg/dL before meals <180 mg/dL all other times of the day Blood specimen (specimen) 11/24/2018 4:29 AM EDT 11/24/2018 4:29 AM EDT Kim Dick MD POINT OF CARE TEST O RDERABLES Performing Organization Address [facility] Co de Phone Number [facility] [place] [address] * POCT Glucose (11/23/2018 11:11 PM EDT) Glucose, POC 148 65 - 199 mg/dL [facility] Comment: Supplemental ranges: <140 mg/dL before meals <180 mg/dL all other times of the day Blood specimen (specimen) 11/23/2018 11:11 PM EDT 11/23/2018 11:11 PM EDT Kim Dick MD POINT OF CARE TEST O RDERABLES Performing Organization Address City/[facility] Co de Phone Number [facility] [place] [address] * POCT Glucose (11/23/2018 7:22 PM EDT) Glucose, POC 123 65 - 199 mg/dL [facility] Comment: Supplemental ranges: <140 mg/dL before meals <180 mg/dL all other times of the day Blood specimen (specimen) 11/23/2018 7:22 PM EDT 11/23/2018 7:22 PM EDT Kim Dick MD POINT OF CARE TEST O RDERABLES Performing Organization Address City/[facility]/ZIP Co de Phone Number [facility] [place] [address] * POCT Glucose (11/23/2018 4:24 PM EDT) Glucose, POC 113 65 - 199 mg/dL [facility] Comment: Supplemental ranges: <140 mg/dL before meals <180 mg/dL all other times of the day Blood specimen (specimen) 11/23/2018 4:24 PM EDT 11/23/2018 4:24 PM EDT Kim Dick MD POINT OF CARE TEST O RDERAKAYLEY Performing Organization Address City/[facility]/ZIP Co de Phone Number [facility] [place] [address] * POCT Glucose (11/23/2018 11:46 AM EDT) Glucose, POC 116 65 - 199 mg/dL [facility] Comment: Supplemental ranges: <140 mg/dL before meals <180 mg/dL all other times of the day Blood specimen (specimen) 11/23/2018 11:46 AM EDT 11/23/2018 11:46 AM EDT Kim Dick MD POINT OF CARE TEST O WILBERERAKAYLEY Performing Organization Address City/[facility]/ZIP Co de Phone Number [facility] [place] [address] * (ABNORMAL) Differential, Automated (11/23/2018 8:05 AM EDT) Neutrophil % 64.5 % [facility] Neutrophil Absolute 7.19(H) 1.70 - 6.10 x10(3)/mc L [facility] Lymph % 25.0 % [facility] Lymphocytes Abs 2.8 0.9 - 3.2 x10(3)/mc L [facility] Monocyte % 8.0 % [facility] Monocyte Abs 0.9 0.3 - 0.9 x10(3)/[facility] LABORAT[facility] Eos % 0.8 % [facility] Eosinophils Abs 0.1 0.0 - 0.4 x10(3)/[facility]OR[facility] Basophil % 0.4 % [facility] Baso Absolute 0.0 0.0 - 0.1 x10(3)/[facility]OR[facility] Immature Gran % 1.30 % [facility] Comment: Immature granulocytes(IG's)percentage and absolute count will include metamyelocytes, myelocytes, and promyelocytes. Blood smears from CBCs yielding IG's will be scanned manually for concordance. If this scan disagrees with the automated IG or if promyelocytes are noted, a manual differential will be performed. Immature Gran Absolute 0.14(H) 0.00 - 0.04 x10(3)/[facility] LABORAT[facility] Blood specimen (specimen) 11/23/2018 8:05 AM EDT 11/23/2018 8:12 AM EDT Narrative Resulting Agency Comment Spec In Lab Dion Angulo MD HEMATOLOGY PHYLLIS [facility] Organization Address City/State/ZIP Co de Phone Number [facility] [place] [address] * (ABNORMAL) Hemogram (11/23/2018 8:05 AM EDT) White Blood Cell 11.1(H) 4.0 - 9.5 x10(3)/[facility]ORAT[facility] Red Blood Cell 3.92(L) 4.00 - 5.21 x10(6)/[facility] Hemoglobin 10.6(L) 11.7 - 15.5 gm/dL [facility] Hematocrit 33.5(L) 35.7 - 45.8 % [facility] Mean Cell Volume 85.5 82.6 - 94.4 fL [facility] Mean Cell Hemoglobin 27.0(L) 27.1 - 32.0 pg [facility] Mean Cell Hemoglobin Concentration 31.6(L) 31.7 - 35.0 gm/dL [facility] Platelet 308 145 - 357 x10(3)/mc L [facility] RDW Standard Deviation 52.9(H) 37.0 - 46.0 fL [facility] RDW coefficient of variation 17.2(H) 11.5 - 14.1 % [facility] Mean Platelet Volume 11.7 7.6 - 12.9 fL [facility] NRBC% auto 0.0 % [facility] NRBC Absolute 0.000 0.000 - 0.000 x10(3)/mc L [facility] Blood specimen (specimen) 11/23/2018 8:05 AM EDT 11/23/2018 8:12 AM EDT Narrative Resulting Agency Comment Spec In Lab Dion Angulo MD HEMATOLOGY PHYLLIS DUKE [facility] [place] [address] * (ABNORMAL) Basic Metabolic Panel (non-fasting) (11/23/2018 8:05 AM EDT) Glucose 111 65 - 199 mg/dL [facility] Comment:Diabetes: >=200 mg/d L plus symptoms Blood Urea Nitrogen 31(H) 8 - 18 mg/dL [facility] Creatinine 1.15 0.70 - 1.20 mg/dL [facility] Sodium 140 135 - 145 mmol/L [facility] Potassium 4.1 3.5 - 5.0 mmol/L [facility] Comment: Please note: ??Patients with WBC >100,000 may have falsely elevated Potassium levels. ??For accurate Potassium quantification in these patients send serum separator tube (gold top) for subsequent determinations. ??Contact the Clinical Chemistry Laboratory if there are any questions. Chloride 102 98 - 107 mmol/L [facility] Carbon Dioxide 23 22 - 31 mmol/L [facility] Anion Gap 15 5 - 15 mmol/L [facility] Calcium 9.5 8.5 - 10.5 mg/dL [facility] Est Glomerular Filtration Rate 53(L) >=60 mL/min/1. 73 m?? [facility] Comment: The eGFR was calculated using the CKD-EPI equation. As with all creatinine based estimates of kidney function, eGFR values calculated with the CKD-EPI equation are not accurate in patients with acute kidney failure, extremes of body mass or the acutely ill. [email or web address] eGFR 62 >=60 mL/min/1. 73 m?? [facility] Comment: The eGFR was calculated using the CKD-EPI equation. As with all creatinine based estimates of kidney function, eGFR values calculated with the CKD-EPI equation are not accurate in patients with acute kidney failure, extremes of body mass or the acutely ill. [email or web address] Blood specimen (specimen) 11/23/2018 8:05 AM EDT 11/23/2018 8:12 AM EDT Narrative Resulting Agency Comment Spec In Lab Justin Amezcua MD CHEMISTRY ORDERABLES Performing Organization Address City/[facility]/ZIP Co de Phone Number [facility] [place] [address] * POCT Glucose (11/23/2018 7:25 AM EDT) Glucose, POC 110 65 - 199 mg/dL [facility] Comment: Supplemental ranges: <140 mg/dL before meals <180 mg/dL all other times of the day Blood specimen (specimen) 11/23/2018 7:25 AM EDT 11/23/2018 7:25 AM EDT Kim Dick MD POINT OF CARE TEST O RDERABLES [facility] [place] [address] * POCT Glucose (11/23/2018 3:35 AM EDT) Glucose, POC 124 65 - 199 mg/dL [facility] Comment: Supplemental ranges: <140 mg/dL before meals <180 mg/dL all other times of the day Blood specimen (specimen) 11/23/2018 3:35 AM EDT 11/23/2018 3:35 AM EDT Kim Dick MD POINT OF CARE TEST O RDERAKAYLEY [facility] [place] [address] * POCT Glucose (11/22/2018 11:58 PM EDT) Glucose, POC 104 65 - 199 mg/dL [facility] Comment: Supplemental ranges: <140 mg/dL before meals <180 mg/dL all other times of the day Blood specimen (specimen) 11/22/2018 11:58 PM EDT 11/22/2018 11:58 PM EDT Kim Dick MD POINT OF CARE TEST O RODDY Performing Organization Address City/[facility]/ZIP Co de Phone Number [facility] [place] [address] * POCT Glucose (11/22/2018 7:52 PM EDT) Glucose, POC 125 65 - 199 mg/dL [facility] Comment: Supplemental ranges: <140 mg/dL before meals <180 mg/dL all other times of the day Blood specimen (specimen) 11/22/2018 7:52 PM EDT 11/22/2018 7:52 PM EDT Kim Dick MD POINT OF CARE TEST O WILBERERAKAYLEY [facility] [place] [address] * POCT Glucose (11/22/2018 4:23 PM EDT) Glucose, POC 117 65 - 199 mg/dL [facility] Comment: Supplemental ranges: <140 mg/dL before meals <180 mg/dL all other times of the day Blood specimen (specimen) 11/22/2018 4:23 PM EDT 11/22/2018 4:23 PM EDT Kim Dick MD POINT OF CARE TEST O RODDY [facility] [place] [address] * POCT Glucose (11/22/2018 11:30 AM EDT) Glucose, POC 110 65 - 199 mg/dL [facility] Comment: Supplemental ranges: <140 mg/dL before meals <180 mg/dL all other times of the day Blood specimen (specimen) 11/22/2018 11:30 AM EDT 11/22/2018 11:30 AM EDT Kim Dick MD POINT OF CARE TEST O RODDY [facility] [place] [address] * (ABNORMAL) _Urinalysis with microscopic (11/22/2018 11:26 AM EDT) Glucose, Urine Dipstick Negative Negative mg/dL [facility] Protein, Urine Dipstick 30(A) Negative mg/dL [facility] Bilirubin, Urine Dipstick Negative Negative mg/dL [facility] Comment: Clinical correlation required for positive Urine Bilirubin results as false positive may occur with some drugs and drug related products. If a false positive is suspected a serum total bilirubin should be considered if clinically indicated. Urobilinogen, Urine Dipstick Normal Normal mg/dL [facility] pH, Urn (dipstick) 5.0 5.0 - 8.0 [facility] Blood, Urine Dipstick Moderate(A) Negative mg/dL [facility] Ketone, Urine Dipstick Negative Negative mg/dL [facility] Nitrite, Urine Dipstick Negative Negative [facility] Leukocytes, Urine Dipstick Large(A) Negative [facility] LABORATORY Appearance, Urine Dipstick Clear Clear [facility] Specific [place] Urine Automated 1.030 1.002 - 1.030 [facility] Color, Urine Dipstick Yellow Yellow [facility] RBC, Urine 58(H) 0 - 4 /HPF [facility] WBC, Urine 25(H) 0 - 5 /HPF [facility] Bacteria, Urine Moderate(A) None /HPF [facility] Squamous Epithelial Cells Raw Data, Urine <1 <=4 /HPF [facility] Hyaline Casts, Urine 31(H) 0 - 2 /LPF [facility] Urine specimen (specimen) 11/22/2018 11:26 AM EDT 11/22/2018 11:32 AM EDT Narrative Resulting Agency Comment Spec In Lab Kim Dick MD URINE ORDERABLES Performing Organization Address [facility] Co de Phone Number [facility] [place] [address] * POCT Glucose (11/22/2018 7:36 AM EDT) Glucose, POC 111 65 - 199 mg/dL [facility] Comment: Supplemental ranges: <140 mg/dL before meals <180 mg/dL all other times of the day Blood specimen (specimen) 11/22/2018 7:36 AM EDT 11/22/2018 7:36 AM EDT Kim Dick MD POINT OF CARE TEST O RDERABLES Performing Organization Address City/[facility] Co de Phone Number [facility] [place] [address] * Scan, Peripheral Blood (11/22/2018 7:15 AM EDT) Pathologist [facility] Plat estimate Normal [facility] RBC Morphology Normal [facility] Blood specimen (specimen) 11/22/2018 7:15 AM EDT 11/22/2018 7:19 AM EDT Narrative Resulting Agency Comment Spec In Lab Dion Angulo MD HEMATOLOGY PHYLLIS DUKE [facility] [place] [address] * (ABNORMAL) Differential, Automated (11/22/2018 7:15 AM EDT) Pathologist [facility] Neutrophil % 58.2 % [facility] Neutrophil Absolute 8.36(H) 1.70 - 6.10 x10(3)/mc L [facility] Lymph % 27.0 % [facility] Lymphocytes Abs 3.9(H) 0.9 - 3.2 x10(3)/mc L [facility] Monocyte % 10.6 % [facility] Monocyte Abs 1.5(H) 0.3 - 0.9 x10(3)/mc L [facility] Eos % 0.8 % [facility] Eosinophils Abs 0.1 0.0 - 0.4 x10(3)/mc L [facility] Basophil % 0.5 % [facility] LABORATORY Baso Absolute 0.1 0.0 - 0.1 x10(3)/mc L [facility] Immature Gran % 2.90 % [facility] Comment: Immature granulocytes(IG's)percentage and absolute count will include metamyelocytes, myelocytes, and promyelocytes. Blood smears from CBCs yielding IG's will be scanned manually for concordance. If this scan disagrees with the automated IG or if promyelocytes are noted, a manual differential will be performed. Immature Gran Absolute 0.41(H) 0.00 - 0.04 x10(3)/[facility] Blood specimen (specimen) 11/22/2018 7:15 AM EDT 11/22/2018 7:19 AM EDT Narrative Resulting Agency Comment Spec In Lab Dion Angulo MD HEMATOLOGY PHYLLIS DUKE Performing Organization Address City/State/[facility] Co de Phone Number [facility] [place] [address] * (ABNORMAL) Hemogram (11/22/2018 7:15 AM EDT) White Blood Cell 14.3(H) 4.0 - 9.5 x10(3)/[facility] Red Blood Cell 4.07 4.00 - 5.21 x10(6)/[facility] Hemoglobin 10.9(L) 11.7 - 15.5 gm/dL [facility] Hematocrit 34.8(L) 35.7 - 45.8 % [facility] Mean Cell Volume 85.5 82.6 - 94.4 fL [facility] Mean Cell Hemoglobin 26.8(L) 27.1 - 32.0 pg [facility] Mean Cell Hemoglobin Concentration 31.3(L) 31.7 - 35.0 gm/dL [facility] Platelet 260 145 - 357 x10(3)/[facility] RDW Standard Deviation 52.3(H) 37.0 - 46.0 fL [facility] RDW coefficient of variation 17.2(H) 11.5 - 14.1 % [facility] Mean Platelet Volume 12.0 7.6 - 12.9 fL [facility] NRBC% auto 0.0 % [facility] NRBC Absolute 0.000 0.000 - 0.000 x10(3)/[facility] Blood specimen (specimen) 11/22/2018 7:15 AM EDT 11/22/2018 7:19 AM EDT Narrative Resulting Agency Comment Spec In Lab Dion Angulo MD HEMATOLOGY PHYLLIS DUKE [facility] [place] [address] * (ABNORMAL) Basic Metabolic Panel (non-fasting) (11/22/2018 7:15 AM EDT) Glucose 103 65 - 199 mg/dL [facility] Comment:Diabetes: >=200 mg/d L plus symptoms Blood Urea Nitrogen 42(H) 8 - 18 mg/dL [facility] Creatinine 1.84(H) 0.70 - 1.20 mg/dL [facility] Comment:result rechecked-sb Sodium 137 135 - 145 mmol/L [facility] Potassium 3.8 3.5 - 5.0 mmol/L [facility] Comment: Please note: ??Patients with WBC >100,000 may have falsely elevated Potassium levels. ??For accurate Potassium quantification in these patients send serum separator tube (gold top) for subsequent determinations. ??Contact the Clinical Chemistry Laboratory if there are any questions. Chloride 98 98 - 107 mmol/L [facility] Carbon Dioxide 23 22 - 31 mmol/L [facility] Anion Gap 16(H) 5 - 15 mmol/L [facility] Calcium 9.5 8.5 - 10.5 mg/dL [facility] Est Glomerular Filtration Rate 30(L) >=60 mL/min/1. 73 m?? [facility] Comment: The eGFR was calculated using the CKD-EPI equation. As with all creatinine based estimates of kidney function, eGFR values calculated with the CKD-EPI equation are not accurate in patients with acute kidney failure, extremes of body mass or the acutely ill. [email or web address] eGFR 35(L) >=60 mL/min/1. 73 m?? [facility] Comment: The eGFR was calculated using the CKD-EPI equation. As with all creatinine based estimates of kidney function, eGFR values calculated with the CKD-EPI equation are not accurate in patients with acute kidney failure, extremes of body mass or the acutely ill. [email or web address] Blood specimen (specimen) 11/22/2018 7:15 AM EDT 11/22/2018 7:19 AM EDT Narrative Resulting Agency Comment Spec In Lab Justin Amezcua MD CHEMISTRY ORDERABLES [facility] [place] [address] * POCT Glucose (11/22/2018 3:29 AM EDT) Glucose, POC 102 65 - 199 mg/dL [facility] Comment: Supplemental ranges: <140 mg/dL before meals <180 mg/dL all other times of the day Blood specimen (specimen) 11/22/2018 3:29 AM EDT 11/22/2018 3:29 AM EDT Antonette Welsh MD POINT OF CARE BRI T ORDERABLES Performing Organization Address City/[facility] Co de Phone Number [facility] [place] [address] * POCT Glucose (11/21/2018 11:05 PM EDT) Glucose, POC 96 65 - 199 mg/dL [facility] Comment: Supplemental ranges: <140 mg/dL before meals <180 mg/dL all other times of the day Blood specimen (specimen) 11/21/2018 11:05 PM EDT 11/21/2018 11:05 PM EDT Antonette Welsh MD POINT OF CARE BRI T ORDERABLES Performing Organization Address City/[facility]/ZIP Co de Phone Number [facility] [place] [address] * (ABNORMAL) POCT Glucose (11/21/2018 7:15 PM EDT) Glucose, POC 212(H) 65 - 199 mg/dL [facility] Comment: Supplemental ranges: <140 mg/dL before meals <180 mg/dL all other times of the day Blood specimen (specimen) 11/21/2018 7:15 PM EDT 11/21/2018 7:15 PM EDT Antonette Welsh MD POINT OF CARE BRI T ORDERABLES [facility] [place] [address] * POCT Glucose (11/21/2018 3:55 PM EDT) Glucose, POC 115 65 - 199 mg/dL [facility] Comment: Supplemental ranges: <140 mg/dL before meals <180 mg/dL all other times of the day Blood specimen (specimen) 11/21/2018 3:55 PM EDT 11/21/2018 3:55 PM EDT Antonette Welsh MD POINT OF CARE BRI T ORDERABLES Performing Organization Address City/[facility]/ZIP Co de Phone Number [facility] [place] [address] * POCT Glucose (11/21/2018 11:36 AM EDT) Glucose, POC 121 65 - 199 mg/dL [facility] Comment: Supplemental ranges: <140 mg/dL before meals <180 mg/dL all other times of the day Blood specimen (specimen) 11/21/2018 11:36 AM EDT 11/21/2018 11:36 AM EDT Antonette Welsh MD POINT OF CARE BRI T ORDERABLES [facility] [place] [address] * POCT Glucose (11/21/2018 7:54 AM EDT) Glucose, POC 121 65 - 199 mg/dL [facility] Comment: Supplemental ranges: <140 mg/dL before meals <180 mg/dL all other times of the day Blood specimen (specimen) 11/21/2018 7:54 AM EDT 11/21/2018 7:54 AM EDT Antonette Welsh MD POINT OF CARE BRI T ORDERABLES [facility] [place] [address] * (ABNORMAL) Differential, Automated (11/21/2018 6:17 AM EDT) [facility] Neutrophil % 60.6 % [facility] Neutrophil Absolute 6.87(H) 1.70 - 6.10 x10(3)/mc L [facility] Lymph % 25.8 % [facility] Lymphocytes Abs 2.9 0.9 - 3.2 x10(3)/mc L [facility] Monocyte % 9.1 % [facility] Monocyte Abs 1.0(H) 0.3 - 0.9 x10(3)/mc L [facility] Eos % 0.9 % [facility] Eosinophils Abs 0.1 0.0 - 0.4 x10(3)/ L [facility] Basophil % 0.5 % [facility] Baso Absolute 0.1 0.0 - 0.1 x10(3)/mc L [facility] Immature Gran % 3.10 % [facility] Comment: Immature granulocytes(IG's)percentage and absolute count will include metamyelocytes, myelocytes, and promyelocytes. Blood smears from CBCs yielding IG's will be scanned manually for concordance. If this scan disagrees with the automated IG or if promyelocytes are noted, a manual differential will be performed. Immature Gran Absolute 0.35(H) 0.00 - 0.04 x10(3)/mc L [facility] Blood specimen (specimen) 11/21/2018 6:17 AM EDT 11/21/2018 6:40 AM EDT Narrative Resulting Agency Comment Spec In Lab Dion Angulo MD HEMATOLOGY PHYLLIS DUKE [facility] [place] [address] * (ABNORMAL) Hemogram (11/21/2018 6:17 AM EDT) White Blood Cell 11.3(H) 4.0 - 9.5 x10(3)/[facility] Red Blood Cell 4.33 4.00 - 5.21 x10(6)/[facility] Hemoglobin 11.3(L) 11.7 - 15.5 gm/dL [facility] Hematocrit 37.2 35.7 - 45.8 % [facility] Mean Cell Volume 85.9 82.6 - 94.4 fL [facility] Mean Cell Hemoglobin 26.1(L) 27.1 - 32.0 pg [facility] Mean Cell Hemoglobin Concentration 30.4(L) 31.7 - 35.0 gm/dL [facility] Platelet 271 145 - 357 x10(3)/[facility] RDW Standard Deviation 52.1(H) 37.0 - 46.0 fL [facility] RDW coefficient of variation 17.0(H) 11.5 - 14.1 % [facility] Mean Platelet Volume 11.6 7.6 - 12.9 fL [facility] NRBC% auto 0.0 % [facility] NRBC Absolute 0.000 0.000 - 0.000 x10(3)/[facility] Blood specimen (specimen) 11/21/2018 6:17 AM EDT 11/21/2018 6:40 AM EDT Narrative Resulting Agency Comment Spec In Lab Dion Angulo MD HEMATOLOGY PHYLLIS DUKE [facility] [place] [address] * (ABNORMAL) Basic Metabolic Panel (non-fasting) (11/21/2018 6:17 AM EDT) Glucose 103 65 - 199 mg/dL [facility] Comment:Diabetes: >=200 mg/d L plus symptoms Blood Urea Nitrogen 30(H) 8 - 18 mg/dL [facility] Creatinine 0.93 0.70 - 1.20 mg/dL [facility] Sodium 140 135 - 145 mmol/L [facility] Potassium 3.9 3.5 - 5.0 mmol/L [facility] Comment: Please note: ??Patients with WBC >100,000 may have falsely elevated Potassium levels. ??For accurate Potassium quantification in these patients send serum separator tube (gold top) for subsequent determinations. ??Contact the Clinical Chemistry Laboratory if there are any questions. Chloride 102 98 - 107 mmol/L [facility] Carbon Dioxide 22 22 - 31 mmol/L [facility] Anion Gap 16(H) 5 - 15 mmol/L [facility] Calcium 9.5 8.5 - 10.5 mg/dL [facility] Est Glomerular Filtration Rate 69 >=60 mL/min/1. 73 m?? [facility] Comment: The eGFR was calculated using the CKD-EPI equation. As with all creatinine based estimates of kidney function, eGFR values calculated with the CKD-EPI equation are not accurate in patients with acute kidney failure, extremes of body mass or the acutely ill. [email or web address] eGFR 80 >=60 mL/min/1. 73 m?? [facility] Comment: The eGFR was calculated using the CKD-EPI equation. As with all creatinine based estimates of kidney function, eGFR values calculated with the CKD-EPI equation are not accurate in patients with acute kidney failure, extremes of body mass or the acutely ill. [email or web address] Blood specimen (specimen) 11/21/2018 6:17 AM EDT 11/21/2018 6:40 AM EDT Narrative Resulting Agency Comment Spec In Lab Justin Amezcua MD CHEMISTRY ORDERABLES [facility] [place] [address] * POCT Glucose (11/21/2018 3:52 AM EDT) Glucose, POC 97 65 - 199 mg/dL [facility] Comment: Supplemental ranges: <140 mg/dL before meals <180 mg/dL all other times of the day Blood specimen (specimen) 11/21/2018 3:52 AM EDT 11/21/2018 3:52 AM EDT Antonette Welsh MD POINT OF CARE BRI T ORDERABLES Performing Organization Address [facility]/ZIP Co de Phone Number [facility] [place] [address] * POCT Glucose (11/20/2018 11:18 PM EDT) Glucose, POC 98 65 - 199 mg/dL [facility] Comment: Supplemental ranges: <140 mg/dL before meals <180 mg/dL all other times of the day Blood specimen (specimen) 11/20/2018 11:18 PM EDT 11/20/2018 11:18 PM EDT Antonette Welsh MD POINT OF CARE BRI T ORDERABLES Performing Organization Address City/[facility]/ZIP Co de Phone Number [facility] [place] [address] * POCT Glucose (11/20/2018 8:03 PM EDT) Glucose, POC 137 65 - 199 mg/dL [facility] Comment: Supplemental ranges: <140 mg/dL before meals <180 mg/dL all other times of the day Blood specimen (specimen) 11/20/2018 8:03 PM EDT 11/20/2018 8:03 PM EDT Antonette Welsh MD POINT OF CARE BRI T ORDERABLES Performing Organization Address [facility]/ZIP Co de Phone Number [facility] [place] [address] * POCT Glucose (11/20/2018 4:19 PM EDT) Glucose, POC 113 65 - 199 mg/dL [facility] Comment: Supplemental ranges: <140 mg/dL before meals <180 mg/dL all other times of the day Blood specimen (specimen) 11/20/2018 4:19 PM EDT 11/20/2018 4:19 PM EDT Antonette Welsh MD POINT OF CARE BRI T ORDERABLES Performing Organization Address [facility]/ZIP Co de Phone Number [facility] [place] [address] * POCT Glucose (11/20/2018 12:47 PM EDT) Glucose, POC 108 65 - 199 mg/dL [facility] Comment: Supplemental ranges: <140 mg/dL before meals <180 mg/dL all other times of the day Blood specimen (specimen) 11/20/2018 12:47 PM EDT 11/20/2018 12:47 PM EDT Justin Amezcua MD POINT OF CARE TEST O RDERABLES Performing Organization Address City/[facility]/ZIP Co de Phone Number [facility] [place] [address] * POCT Glucose (11/20/2018 8:28 AM EDT) Glucose, POC 98 65 - 199 mg/dL [facility] Comment: Supplemental ranges: <140 mg/dL before meals <180 mg/dL all other times of the day Blood specimen (specimen) 11/20/2018 8:28 AM EDT 11/20/2018 8:28 AM EDT Justin Amezcua MD POINT OF CARE TEST O RODDY Performing Organization Address [facility]/ZIP Co de Phone Number [facility] [place] [address] * POCT Glucose (11/20/2018 3:37 AM EDT) Pathologist [facility] Glucose, POC 93 65 - 199 mg/dL [facility] Comment: Supplemental ranges: <140 mg/dL before meals <180 mg/dL all other times of the day Blood specimen (specimen) 11/20/2018 3:37 AM EDT 11/20/2018 3:37 AM EDT Justin Amezcua MD POINT OF CARE TEST O RDERAKAYLEY Performing Organization Address [facility] Co de Phone Number [facility] [place] [address] * (ABNORMAL) CK (11/20/2018 1:35 AM EDT) [facility] Creatine Kinase 831(H) 0 - 160 unit/L [facility] Blood specimen (specimen) Venous Draw / Unknown 11/20/2018 1:35 AM EDT 11/20/2018 3:16 AM EDT Narrative Resulting Agency Comment Spec In Lab Justin Amezcua MD CHEMISTRY ORDERABLES Performing Organization Address [facility] Co de Phone Number [facility] [place] [address] * (ABNORMAL) Differential, Automated (11/20/2018 1:35 AM EDT) [facility] Neutrophil % 65.0 % [facility] Neutrophil Absolute 7.45(H) 1.70 - 6.10 x10(3)/mc L [facility] Lymph % 23.9 % [facility] Lymphocytes Abs 2.7 0.9 - 3.2 x10(3)/ L [facility] Monocyte % 6.6 % [facility] Monocyte Abs 0.8 0.3 - 0.9 x10(3)/[facility] Eos % 2.0 % [facility] Eosinophils Abs 0.2 0.0 - 0.4 x10(3)/[facility] Basophil % 0.2 % [facility] Baso Absolute 0.0 0.0 - 0.1 x10(3)/[facility] Immature Gran % 2.30 % [facility] Comment: Immature granulocytes(IG's)percentage and absolute count will include metamyelocytes, myelocytes, and promyelocytes. Blood smears from CBCs yielding IG's will be scanned manually for concordance. If this scan disagrees with the automated IG or if promyelocytes are noted, a manual differential will be performed. Immature Gran Absolute 0.26(H) 0.00 - 0.04 x10(3)/[facility] Blood specimen (specimen) 11/20/2018 1:35 AM EDT 11/20/2018 2:16 AM EDT Narrative Resulting Agency Comment Spec In Lab Kelly Bermudez MD HEMATOLOGY ORDERABLE S Performing Organization Address City/State/[facility] Co de Phone Number [facility] [place] [address] * (ABNORMAL) Hemogram (11/20/2018 1:35 AM EDT) White Blood Cell 11.5(H) 4.0 - 9.5 x10(3)/[facility] Red Blood Cell 4.19 4.00 - 5.21 x10(6)/[facility] Hemoglobin 11.2(L) 11.7 - 15.5 gm/dL [facility] Hematocrit 34.8(L) 35.7 - 45.8 % [facility] Mean Cell Volume 83.1 82.6 - 94.4 fL [facility] Mean Cell Hemoglobin 26.7(L) 27.1 - 32.0 pg [facility] Mean Cell Hemoglobin Concentration 32.2 31.7 - 35.0 gm/dL [facility] Platelet 224 145 - 357 x10(3)/mc L [facility] RDW Standard Deviation 49.4(H) 37.0 - 46.0 fL [facility] RDW coefficient of variation 16.6(H) 11.5 - 14.1 % [facility] Mean Platelet Volume 11.5 7.6 - 12.9 fL [facility] NRBC% auto 0.0 % [facility] NRBC Absolute 0.000 0.000 - 0.000 x10(3)/mc L [facility] Blood specimen (specimen) 11/20/2018 1:35 AM EDT 11/20/2018 2:16 AM EDT Narrative Resulting Agency Comment Spec In Lab Kelly Bermudez MD HEMATOLOGY ORDERABLE S Performing Organization Address City/State/[facility] Co de Phone Number [facility] [place] [address] * (ABNORMAL) Basic Metabolic Panel (non-fasting) (11/20/2018 1:35 AM EDT) Glucose 92 65 - 199 mg/dL [facility] Comment:Diabetes: >=200 mg/d L plus symptoms Blood Urea Nitrogen 19(H) 8 - 18 mg/dL [facility] Creatinine 0.73 0.70 - 1.20 mg/dL [facility] Sodium 135 135 - 145 mmol/L [facility] Potassium 3.8 3.5 - 5.0 mmol/L [facility] Comment: Please note: ??Patients with WBC >100,000 may have falsely elevated Potassium levels. ??For accurate Potassium quantification in these patients send serum separator tube (gold top) for subsequent determinations. ??Contact the Clinical Chemistry Laboratory if there are any questions. Chloride 95(L) 98 - 107 mmol/L [facility] Carbon Dioxide 23 22 - 31 mmol/L [facility] Anion Gap 17(H) 5 - 15 mmol/L [facility] Calcium 10.1 8.5 - 10.5 mg/dL [facility] Comment:result rechecked-yuly Est Glomerular Filtration Rate 92 >=60 mL/min/1. 73 m?? [facility] Comment: The eGFR was calculated using the CKD-EPI equation. As with all creatinine based estimates of kidney function, eGFR values calculated with the CKD-EPI equation are not accurate in patients with acute kidney failure, extremes of body mass or the acutely ill. [email or web address] eGFR 107 >=60 mL/min/1. 73 m?? [facility] Comment: The eGFR was calculated using the CKD-EPI equation. As with all creatinine based estimates of kidney function, eGFR values calculated with the CKD-EPI equation are not accurate in patients with acute kidney failure, extremes of body mass or the acutely ill. [email or web address] Blood specimen (specimen) 11/20/2018 1:35 AM EDT 11/20/2018 2:16 AM EDT Narrative Resulting Agency Comment Spec In Lab Justin Amezcua MD CHEMISTRY ORDERABLES Performing Organization Address City/State/[facility] Co de Phone Number [facility] [place] [address] * (ABNORMAL) BLOOD GAS 2 ARTERIAL (11/19/2018 11:35 PM EDT) pH, Arterial 7.50(H) 7.35 - 7.45 [facility] PCO2, Arterial 28(L) 35 - 45 mmHg [facility] PO2, Arterial 67(L) 85 - 104 mmHg [facility] Bicarbonate, Arterial 21.8 20.0 - 26.0 mmol/L [facility] Base Excess, Arterial -1.4 -3.0 - 3.0 mmol/L [facility] Hgb Blood Gas 12.0 11.7 - 15.5 gm/dL [facility] Oxyhemoglobin, Arterial 91.8(L) 94.0 - 97.0 % [facility] Carboxyhemoglob in, Arterial 0.6 % [facility] Comment: Nonsmokers: 0.5-1.5% COHB Smokers: Variable, but usually less than 10% Toxic: 20-30% COHB Lethal: Greater than 60% COHB Methemoglobin, Arterial 0.2 <=1.5 % [facility] Na Whole Blood 135 135 - 145 mmol/L [facility] K Whole Blood 4.0 3.5 - 5.0 mmol/L [facility] Comment: Please note: Patients with WBC >100,000 may have falsely elevated Potassium levels. Contact the Clinical Chemistry Laboratory if there are any questions. ICa Whole Blood 1.23 1.15 - 1.33 mmol/L [facility] Comment: Note: ??Total bilirubin higher than 20 mg/dL may lead to falsely low ionized calcium. CL Whole Blood 101 98 - 107 mmol/L [facility] Gluc Whole Bld 103 65 - 199 mg/dL [facility] Comment:Diabetes: >=200 mg/d L plus symptoms. Lactate WB 0.9 0.5 - 2.2 mmol/L [facility] FIO2 Art 28 % [facility] PF Ratio Art 239 [facility] Blood specimen (specimen) 11/19/2018 11:35 PM EDT 11/19/2018 11:35 PM EDT Justin Amezcua MD POINT OF CARE TEST O RDERABLES [facility] [place] [address] * POCT Glucose (11/19/2018 11:20 PM EDT) Glucose, POC 98 65 - 199 mg/dL [facility] Comment: Supplemental ranges: <140 mg/dL before meals <180 mg/dL all other times of the day Blood specimen (specimen) 11/19/2018 11:20 PM EDT 11/19/2018 11:20 PM EDT Justin Amezcua MD POINT OF CARE TEST O RDERABLES [facility] [place] [address] * XR Chest PA or AP 1 view (11/19/2018 8:12 PM EDT) Anatomical Region Laterality Modality Chest N/A Digital Radiogra phy Impressions 11/20/2018 1:47 AM EDT Stable examination, no pneumothorax. Thank you for letting us participate in the care of this patient. For questions regarding this report, please contact the number below. ? Electronically signed by: Enedelia Thompson [facility] ([phone]), at 11/20/2018 1:47 AM Narrative 11/20/2018 1:47 AM EDT EXAMINATION: XR CHEST PA OR AP 1 VIEW CLINICAL HISTORY: evaluate for development/progression of pneumothorax TECHNIQUE: 1 view of the chest COMPARISON: November 19, 2018 FINDINGS: Normal lung expansion. Diffuse bilateral punctate reticulonodular opacities throughout the lungs are redemonstrated. No focal consolidation. No pleural effusion or pneumothorax. Lower cervical fusion hardware is again seen. Procedure Note Enedelia Thompson MD - 11/20/2018 EXAMINATION: XR CHEST PA OR AP 1 VIEW CLINICAL HISTORY: evaluate for development/progression of pneumothorax TECHNIQUE: 1 view of the chest COMPARISON: November 19, 2018 FINDINGS: Normal lung expansion. Diffuse bilateral punctate reticulonodularopacities throughout the lungs are redemonstrated. No focal consolidation. Nopleural effusion or pneumothorax. Lower cervical fusion hardware is again seen. IMPRESSION Stable examination, no pneumothorax. Thank you for letting us participate in the care of this patient. Forquestions regarding this report, please contact the number below. Electronically signed by: Enedelia Thompson [facility]([phone]), at 11/20/2018 1:47 AM Justin Amezcua MD IMG DX ORDERABLES * POCT Glucose (11/19/2018 7:55 PM EDT) Glucose, POC 96 65 - 199 mg/dL [facility] Comment: Supplemental ranges: <140 mg/dL before meals <180 mg/dL all other times of the day Blood specimen (specimen) 11/19/2018 7:55 PM EDT 11/19/2018 7:55 PM EDT Justin Amezcua MD POINT OF CARE TEST O RDERAKAYLEY Performing Organization Address [facility]/ZIP Co de Phone Number [facility] [place] [address] * POCT Glucose (11/19/2018 3:58 PM EDT) Glucose, POC 113 65 - 199 mg/dL [facility] Comment: Supplemental ranges: <140 mg/dL before meals <180 mg/dL all other times of the day Blood specimen (specimen) 11/19/2018 3:58 PM EDT 11/19/2018 3:58 PM EDT Justin Amezcua MD POINT OF CARE TEST O RODDY Performing Organization Address [facility]/ZIP Co de Phone Number [facility] [place] [address] * XR Chest PA or AP 1 view (11/19/2018 3:54 PM EDT) Anatomical Region Laterality Modality Chest N/A Digital Radiogra phy Impressions 11/19/2018 4:00 PM EDT FINDINGS/IMPRESSION: Cardiomediastinal contours are magnified and unchanged. Supporting devices have been disconnected in the interval. Diffuse bilateral pulmonary parenchymal nodularities are again noted. Trace of atelectasis at both bases. No focal consolidation. No large pleural effusions. Overall, there is improved aeration of the lungs. No pneumothorax. Suspected radiographic evidence of trace of subcutaneous air in the soft tissues of the left. Thank you for letting us participate in the care of this patient. For questions regarding this report, please contact the number below. ? Narrative 11/19/2018 4:00 PM EDT EXAMINATION: XR CHEST PA OR AP 1 VIEW CLINICAL HISTORY: Subq air after subclavian line removal TECHNIQUE: 1 view of the chest COMPARISON: 11/17/2018. Procedure Note Kalyani Steward MD - 11/19/2018 EXAMINATION: XR CHEST PA OR AP 1 VIEW CLINICAL HISTORY: Subq air after subclavian line removal TECHNIQUE: 1 view of the chest COMPARISON: 11/17/2018. IMPRESSION FINDINGS/IMPRESSION: Cardiomediastinal contours are magnified and unchanged. Supporting devices have been disconnected in the interval. Diffuse bilateral pulmonary parenchymal nodularities are again noted. Trace of atelectasis at both bases. No focal consolidation. No large pleural effusions. Overall, there is improved aeration of the lungs. No pneumothorax. Suspected radiographic evidence of trace of subcutaneous air in the softtissues of the left. Thank you for letting us participate in the care of this patient. Forquestions regarding this report, please contact the number below. Justin Amezcua MD IMG DX ORDERABLES * POCT Glucose (11/19/2018 11:48 AM EDT) Glucose, POC 117 65 - 199 mg/dL [facility] Comment: Supplemental ranges: <140 mg/dL before meals <180 mg/dL all other times of the day Blood specimen (specimen) 11/19/2018 11:48 AM EDT 11/19/2018 11:48 AM EDT Justin Amezcua MD POINT OF CARE TEST O RDERABLES Performing Organization Address [facility] Co de Phone Number [facility] [place] [address] * POCT Glucose (11/19/2018 7:56 AM EDT) Glucose, POC 125 65 - 199 mg/dL [facility] Comment: Supplemental ranges: <140 mg/dL before meals <180 mg/dL all other times of the day Blood specimen (specimen) 11/19/2018 7:56 AM EDT 11/19/2018 7:56 AM EDT Justin Amezcua MD POINT OF CARE TEST O RDERABLES Performing Organization Address [facility] Co de Phone Number [facility] [place] [phone] * POCT Glucose (11/19/2018 3:46 AM EDT) Glucose, POC 133 65 - 199 mg/dL [facility] Comment: Supplemental ranges: <140 mg/dL before meals <180 mg/dL all other times of the day Blood specimen (specimen) 11/19/2018 3:46 AM EDT 11/19/2018 3:46 AM EDT Justin Amezcua MD POINT OF CARE TEST O RDERABLES Performing Organization Address City/[facility]/[place] [address] * (ABNORMAL) Differential, Automated (11/19/2018 3:45 AM EDT) Neutrophil % 59.9 % [facility] Neutrophil Absolute 5.76 1.70 - 6.10 x10(3)/mc L [facility] Lymph % 26.3 % [facility] Lymphocytes Abs 2.5 0.9 - 3.2 x10(3)/[facility] Monocyte % 7.1 % [facility] Monocyte Abs 0.7 0.3 - 0.9 x10(3)/ L [facility] Eos % 3.2 % [facility] Eosinophils Abs 0.3 0.0 - 0.4 x10(3)/[facility] Basophil % 0.3 % [facility] Baso Absolute 0.0 0.0 - 0.1 x10(3)/ L [facility] Immature Gran % 3.20 % [facility] Comment: Immature granulocytes(IG's)percentage and absolute count will include metamyelocytes, myelocytes, and promyelocytes. Blood smears from CBCs yielding IG's will be scanned manually for concordance. If this scan disagrees with the automated IG or if promyelocytes are noted, a manual differential will be performed. Immature Gran Absolute 0.31(H) 0.00 - 0.04 x10(3)/ L [facility] Blood specimen (specimen) 11/19/2018 3:45 AM EDT 11/19/2018 4:00 AM EDT Narrative Resulting Agency Comment Spec In Lab Kelly Bermudez MD HEMATOLOGY ORDERABLE S Performing Organization Address City/[facility]/[place] [address] * (ABNORMAL) Hemogram (11/19/2018 3:45 AM EDT) Pathologist [facility] White Blood Cell 9.6(H) 4.0 - 9.5 x10(3)/[facility] Red Blood Cell 3.60(L) 4.00 - 5.21 x10(6)/[facility] Hemoglobin 9.6(L) 11.7 - 15.5 gm/dL [facility] Hematocrit 30.1(L) 35.7 - 45.8 % [facility] Mean Cell Volume 83.6 82.6 - 94.4 fL [facility] Mean Cell Hemoglobin 26.7(L) 27.1 - 32.0 pg [facility] Mean Cell Hemoglobin Concentration 31.9 31.7 - 35.0 gm/dL [facility] Platelet 217 145 - 357 x10(3)/[facility] RDW Standard Deviation 49.5(H) 37.0 - 46.0 [facility] RDW coefficient of variation 16.5(H) 11.5 - 14.1 % [facility] Mean Platelet Volume 11.4 7.6 - 12.9 fL [facility] NRBC% auto 0.0 % [facility] NRBC Absolute 0.000 0.000 - 0.000 x10(3)/[facility] Blood specimen (specimen) 11/19/2018 3:45 AM EDT 11/19/2018 4:00 AM EDT Narrative Resulting Agency Comment Spec In Lab Kelly Bermudez MD HEMATOLOGY ORDERABLE S [facility] [place] [address] * (ABNORMAL) Basic Metabolic Panel (non-fasting) (11/19/2018 3:45 AM EDT) Pathologist [facility] Glucose 133 65 - 199 mg/dL [facility] Comment:Diabetes: >=200 mg/d L plus symptoms Blood Urea Nitrogen 24(H) 8 - 18 mg/dL [facility] Creatinine 0.87 0.70 - 1.20 mg/dL [facility] Sodium 136 135 - 145 mmol/L [facility] Potassium 4.3 3.5 - 5.0 mmol/L [facility] Comment: Please note: ??Patients with WBC >100,000 may have falsely elevated Potassium levels. ??For accurate Potassium quantification in these patients send serum separator tube (gold top) for subsequent determinations. ??Contact the Clinical Chemistry Laboratory if there are any questions. Chloride 95(L) 98 - 107 mmol/L [facility] Carbon Dioxide 29 22 - 31 mmol/L [facility] Anion Gap 12 5 - 15 mmol/L [facility] Calcium 9.2 8.5 - 10.5 mg/dL [facility] Est Glomerular Filtration Rate 74 >=60 mL/min/1. 73 m?? [facility] Comment: The eGFR was calculated using the CKD-EPI equation. As with all creatinine based estimates of kidney function, eGFR values calculated with the CKD-EPI equation are not accurate in patients with acute kidney failure, extremes of body mass or the acutely ill. [email or web address] eGFR 86 >=60 mL/min/1. 73 m?? [facility] Comment: The eGFR was calculated using the CKD-EPI equation. As with all creatinine based estimates of kidney function, eGFR values calculated with the CKD-EPI equation are not accurate in patients with acute kidney failure, extremes of body mass or the acutely ill. [email or web address] Blood specimen (specimen) 11/19/2018 3:45 AM EDT 11/19/2018 4:00 AM EDT Narrative Resulting Agency Comment Spec In Lab Justin Amezcua MD CHEMISTRY ORDERABLES [facility] [place] [address] * POCT Glucose (11/19/2018 12:15 AM EDT) Glucose, POC 136 65 - 199 mg/dL [facility] Comment: Supplemental ranges: <140 mg/dL before meals <180 mg/dL all other times of the day Blood specimen (specimen) 11/19/2018 12:15 AM EDT 11/19/2018 12:15 AM EDT uJstin Amezcua MD POINT OF CARE TEST O RDERABLES Performing Organization Address [facility]/ZIP Co de Phone Number [facility] [place] [address] * Magnesium (11/18/2018 9:40 PM EDT) [facility] Magnesium 0.75 0.69 - 1.07 mmol/L [facility] Blood specimen (specimen) 11/18/2018 9:40 PM EDT 11/18/2018 9:44 PM EDT Narrative Resulting Agency Comment Spec In Lab Justin Amezcua MD CHEMISTRY ORDERABLES Performing Organization Address [facility]/ZIP Co de Phone Number [facility] [place] [address] * (ABNORMAL) Basic Metabolic Panel (non-fasting) (11/18/2018 9:40 PM EDT) [facility] Glucose 146 65 - 199 mg/dL [facility] Comment:Diabetes: >=200 mg/d L plus symptoms Blood Urea Nitrogen 25(H) 8 - 18 mg/dL [facility] Creatinine 0.91 0.70 - 1.20 mg/dL [facility] Sodium 140 135 - 145 mmol/L [facility] Potassium 4.5 3.5 - 5.0 mmol/L [facility] Comment: Please note: ??Patients with WBC >100,000 may have falsely elevated Potassium levels. ??For accurate Potassium quantification in these patients send serum separator tube (gold top) for subsequent determinations. ??Contact the Clinical Chemistry Laboratory if there are any questions. Chloride 97(L) 98 - 107 mmol/L [facility] Carbon Dioxide 30 22 - 31 mmol/L [facility] Anion Gap 13 5 - 15 mmol/L [facility] Calcium 9.3 8.5 - 10.5 mg/dL [facility] Est Glomerular Filtration Rate 71 >=60 mL/min/1. 73 m?? [facility] Comment: The eGFR was calculated using the CKD-EPI equation. As with all creatinine based estimates of kidney function, eGFR values calculated with the CKD-EPI equation are not accurate in patients with acute kidney failure, extremes of body mass or the acutely ill. [email or web address] eGFR 82 >=60 mL/min/1. 73 m?? [facility] Comment: The eGFR was calculated using the CKD-EPI equation. As with all creatinine based estimates of kidney function, eGFR values calculated with the CKD-EPI equation are not accurate in patients with acute kidney failure, extremes of body mass or the acutely ill. [email or web address] Blood specimen (specimen) 11/18/2018 9:40 PM EDT 11/18/2018 9:44 PM EDT Narrative Resulting Agency Comment Spec In Lab Justin Amezcua MD CHEMISTRY ORDERABLES [facility] [place] [address] * POCT Glucose (11/18/2018 7:25 PM EDT) Glucose, POC 152 65 - 199 mg/dL [facility] Comment: Supplemental ranges: <140 mg/dL before meals <180 mg/dL all other times of the day Blood specimen (specimen) 11/18/2018 7:25 PM EDT 11/18/2018 7:25 PM EDT Justin Amezcua MD POINT OF CARE TEST O RDERABLES Performing Organization Address [facility] Co de Phone Number [facility] [place] [address] * EKG 12 Lead (11/18/2018 6:46 PM EDT) Ventricular rate 73 BPM MUSE SYSTEM Atrial Rate 73 BPM MUSE SYSTEM P-R Interval 122 ms MUSE SYSTEM QRS Duration 98 ms MUSE SYSTEM Q-T Interval 376 ms MUSE SYSTEM QTC Calculated (Bezet) 414 ms MUSE SYSTEM Calculated P [place] 63 degrees MUSE SYSTEM Calculated R [place] 61 degrees MUSE SYSTEM Calculated T [place] 55 degrees MUSE SYSTEM INTERPRETATION Normal sinus rhythm Normal ECG When compared with ECG of 13-NOV-2018 23:11, No significant change was found Confirmed by MD RADHA, ROHAN ([id number]) on 11/18/2018 8:51:11 PM MUSE SYSTEM 11/18/2018 6:46 PM EDT 11/18/2018 8:51 PM EDT Justin Amezcua MD ECG ORDERABLES Performing Organization Address [facility] de Phone Number MUSE SYSTEM * POCT Glucose (11/18/2018 3:30 PM EDT) Glucose, POC 106 65 - 199 mg/dL [facility] Comment: Supplemental ranges: <140 mg/dL before meals <180 mg/dL all other times of the day Blood specimen (specimen) 11/18/2018 3:30 PM EDT 11/18/2018 3:30 PM EDT Justin Amezcua MD POINT OF CARE TEST O RDERABLES Performing Organization Address [facility] Co de Phone Number [facility] [place] [address] * POCT Glucose (11/18/2018 12:06 PM EDT) Glucose, POC 94 65 - 199 mg/dL [facility] Comment: Supplemental ranges: <140 mg/dL before meals <180 mg/dL all other times of the day Blood specimen (specimen) 11/18/2018 12:06 PM EDT 11/18/2018 12:06 PM EDT Justin Amezcua MD POINT OF CARE TEST O RDALICIA [facility] [place] [address] * (ABNORMAL) BLOOD GAS 2 ARTERIAL (11/18/2018 7:53 AM EDT) pH, Arterial 7.49(H) 7.35 - 7.45 [facility] PCO2, Arterial 37 35 - 45 mmHg [facility] PO2, Arterial 64(L) 85 - 104 mmHg [facility] Bicarbonate, Arterial 27.2(H) 20.0 - 26.0 mmol/L [facility] Base Excess, Arterial 3.8(H) -3.0 - 3.0 mmol/L [facility] Hgb Blood Gas 10.0(L) 11.7 - 15.5 gm/dL [facility] Oxyhemoglobin, Arterial 91.2(L) 94.0 - 97.0 % [facility] Carboxyhemoglob in, Arterial 0.2 % [facility] Comment: Nonsmokers: 0.5-1.5% COHB Smokers: Variable, but usually less than 10% Toxic: 20-30% COHB Lethal: Greater than 60% COHB Methemoglobin, Arterial 0.3 <=1.5 % [facility] Na Whole Blood 137 135 - 145 mmol/L [facility] K Whole Blood 4.3 3.5 - 5.0 mmol/L [facility] Comment: Please note: Patients with WBC >100,000 may have falsely elevated Potassium levels. Contact the Clinical Chemistry Laboratory if there are any questions. ICa Whole Blood 1.16 1.15 - 1.33 mmol/L [facility] Comment: Note: ??Total bilirubin higher than 20 mg/dL may lead to falsely low ionized calcium. CL Whole Blood 103 98 - 107 mmol/L [facility] Gluc Whole Bld 97 65 - 199 mg/dL [facility] Comment:Diabetes: >=200 mg/d L plus symptoms. Lactate WB 0.6 0.5 - 2.2 mmol/L [facility] FIO2 Art 30 % [facility] PF Ratio Art 213 [facility] Blood specimen (specimen) 11/18/2018 7:53 AM EDT 11/18/2018 7:53 AM EDT Justin Amezcua MD POINT OF CARE TEST O RDERAKAYLEY [facility] [place] [address] * POCT Glucose (11/18/2018 7:53 AM EDT) Glucose, POC 103 65 - 199 mg/dL [facility] Comment: Supplemental ranges: <140 mg/dL before meals <180 mg/dL all other times of the day Blood specimen (specimen) 11/18/2018 7:53 AM EDT 11/18/2018 7:53 AM EDT Justin Amezcua MD POINT OF CARE TEST O RODDY Performing Organization Address City/[facility]/ZIP Co de Phone Number [facility] [place] [address] * POCT Glucose (11/18/2018 4:07 AM EDT) Glucose, POC 99 65 - 199 mg/dL [facility] Comment: Supplemental ranges: <140 mg/dL before meals <180 mg/dL all other times of the day Blood specimen (specimen) 11/18/2018 4:07 AM EDT 11/18/2018 4:07 AM EDT Justin Amezcua MD POINT OF CARE TEST O RODDY [facility] [place] [address] * (ABNORMAL) Differential, Automated (11/18/2018 12:30 AM EDT) Neutrophil % 55.1 % [facility] Neutrophil Absolute 6.56(H) 1.70 - 6.10 x10(3)/[facility] Lymph % 31.6 % [facility] Lymphocytes Abs 3.8(H) 0.9 - 3.2 x10(3)/[facility] Monocyte % 6.9 % [facility] Monocyte Abs 0.8 0.3 - 0.9 x10(3)/[facility] Eos % 3.7 % [facility] Eosinophils Abs 0.4 0.0 - 0.4 x10(3)/[facility] Basophil % 0.3 % [facility] Baso Absolute 0.0 0.0 - 0.1 x10(3)/[facility] Immature Gran % 2.40 % [facility] Comment: Immature granulocytes(IG's)percentage and absolute count will include metamyelocytes, myelocytes, and promyelocytes. Blood smears from CBCs yielding IG's will be scanned manually for concordance. If this scan disagrees with the automated IG or if promyelocytes are noted, a manual differential will be performed. Immature Gran Absolute 0.28(H) 0.00 - 0.04 x10(3)/[facility] Blood specimen (specimen) 11/18/2018 12:30 AM EDT 11/18/2018 12:39 AM EDT Narrative Resulting Agency Comment Spec In Lab Kelly Bermudez MD HEMATOLOGY ORDERABLE S [facility] [place] [address] * (ABNORMAL) Hemogram (11/18/2018 12:30 AM EDT) White Blood Cell 11.9(H) 4.0 - 9.5 x10(3)/ L [facility] Red Blood Cell 3.32(L) 4.00 - 5.21 x10(6)/mc L [facility] Hemoglobin 9.0(L) 11.7 - 15.5 gm/dL [facility] Hematocrit 28.5(L) 35.7 - 45.8 % [facility] Mean Cell Volume 85.8 82.6 - 94.4 fL [facility] Mean Cell Hemoglobin 27.1 27.1 - 32.0 pg [facility] Mean Cell Hemoglobin Concentration 31.6(L) 31.7 - 35.0 gm/dL [facility] Platelet 201 145 - 357 x10(3)/[facility] RDW Standard Deviation 52.6(H) 37.0 - 46.0 [facility] RDW coefficient of variation 17.1(H) 11.5 - 14.1 % [facility] Mean Platelet Volume 11.3 7.6 - 12.9 [facility] NRBC% auto 0.0 % [facility] NRBC Absolute 0.000 0.000 - 0.000 x10(3)/[facility] Blood specimen (specimen) 11/18/2018 12:30 AM EDT 11/18/2018 12:39 AM EDT Narrative Resulting Agency Comment Spec In Lab Kelly Bermudez MD HEMATOLOGY ORDERABLE S [facility] [place] [address] * (ABNORMAL) Basic Metabolic Panel (non-fasting) (11/18/2018 12:30 AM EDT) Glucose 94 65 - 199 mg/dL [facility] Comment:Diabetes: >=200 mg/d L plus symptoms Blood Urea Nitrogen 26(H) 8 - 18 mg/dL [facility] Creatinine 0.74 0.70 - 1.20 mg/dL [facility] Sodium 141 135 - 145 mmol/L [facility] Potassium 4.4 3.5 - 5.0 mmol/L [facility] Comment: Please note: ??Patients with WBC >100,000 may have falsely elevated Potassium levels. ??For accurate Potassium quantification in these patients send serum separator tube (gold top) for subsequent determinations. ??Contact the Clinical Chemistry Laboratory if there are any questions. Chloride 104 98 - 107 mmol/L [facility] Carbon Dioxide 28 22 - 31 mmol/L [facility] Anion Gap 9 5 - 15 mmol/L [facility] Calcium 8.6 8.5 - 10.5 mg/dL [facility] Est Glomerular Filtration Rate 91 >=60 mL/min/1. 73 m?? [facility] Comment: The eGFR was calculated using the CKD-EPI equation. As with all creatinine based estimates of kidney function, eGFR values calculated with the CKD-EPI equation are not accurate in patients with acute kidney failure, extremes of body mass or the acutely ill. [email or web address] eGFR 105 >=60 mL/min/1. 73 m?? [facility] Comment: The eGFR was calculated using the CKD-EPI equation. As with all creatinine based estimates of kidney function, eGFR values calculated with the CKD-EPI equation are not accurate in patients with acute kidney failure, extremes of body mass or the acutely ill. [email or web address] Blood specimen (specimen) 11/18/2018 12:30 AM EDT 11/18/2018 12:39 AM EDT Narrative Resulting Agency Comment Spec In Lab Justin Amezcua MD CHEMISTRY ORDERABLES [facility] [place] [address] * Phosphorus (11/18/2018 12:30 AM EDT) Phosphorus 3.8 2.5 - 4.5 mg/dL [facility] Blood specimen (specimen) 11/18/2018 12:30 AM EDT 11/18/2018 12:39 AM EDT Narrative Resulting Agency Comment Spec In Lab Justin Amezcua MD CHEMISTRY ORDERABLES Performing Organization Address [facility] Co de Phone Number [facility] [place] [address] * Magnesium (11/18/2018 12:30 AM EDT) Magnesium 0.79 0.69 - 1.07 mmol/L [facility] Blood specimen (specimen) 11/18/2018 12:30 AM EDT 11/18/2018 12:39 AM EDT Narrative Resulting Agency Comment Spec In Lab Justin Amezcua MD CHEMISTRY ORDERABLES Performing Organization Address [facility] Co de Phone Number [facility] [place] [address] * (ABNORMAL) CK (11/18/2018 12:30 AM EDT) Creatine Kinase 2,424(H) 0 - 160 unit/L [facility] Comment:result rechecked-yuly Blood specimen (specimen) 11/18/2018 12:30 AM EDT 11/18/2018 12:39 AM EDT Narrative Resulting Agency Comment Spec In Lab Justin Amezcua MD CHEMISTRY ORDERABLES Performing Organization Address [facility] Co de Phone Number [facility] [place] [address] * Triglyceride (11/18/2018 12:30 AM EDT) Triglyceride 202 mg/dL [facility] Comment: Average Risk/Lower Risk: <150 mg/dL Borderline High Risk: 150-199 mg/dL High Risk: 200-499 mg/dL Very High Risk: >sl=240 mg/dL Blood specimen (specimen) 11/18/2018 12:30 AM EDT 11/18/2018 12:39 AM EDT Narrative Resulting Agency Comment Spec In Lab Justin Amezcua MD CHEMISTRY ORDERABLES Performing Organization Address [facility] Co de Phone Number [facility] [place] [address] * POCT Glucose (11/18/2018 12:26 AM EDT) Glucose, POC 96 65 - 199 mg/dL [facility] Comment: Supplemental ranges: <140 mg/dL before meals <180 mg/dL all other times of the day Blood specimen (specimen) 11/18/2018 12:26 AM EDT 11/18/2018 12:26 AM EDT Justin Amezcua MD POINT OF CARE TEST O RDERABLES Performing Organization Address [facility] Co de Phone Number [facility] [place] [address] * POCT Glucose (11/17/2018 8:08 PM EDT) Glucose, POC 95 65 - 199 mg/dL [facility] Comment: Supplemental ranges: <140 mg/dL before meals <180 mg/dL all other times of the day Blood specimen (specimen) 11/17/2018 8:08 PM EDT 11/17/2018 8:08 PM EDT Justin Amezcua MD POINT OF CARE TEST O RODDY Performing Organization Address [facility] Co de Phone Number [facility] [place] [address] * POCT Glucose (11/17/2018 4:08 PM EDT) Glucose, POC 114 65 - 199 mg/dL [facility] Comment: Supplemental ranges: <140 mg/dL before meals <180 mg/dL all other times of the day Blood specimen (specimen) 11/17/2018 4:08 PM EDT 11/17/2018 4:08 PM EDT Vivian Valdez Jr., MD POINT OF CARE TE ST ORDERABLES Performing Organization Address [facility]/ZIP Co de Phone Number [facility] [place] [address] * Blood culture (11/17/2018 2:20 PM EDT) Blood Culture No growth at 5 days. [facility] Blood specimen (specimen) STRUCTURE OF LEFT WRIST REGION / Unknown 11/17/2018 2:20 PM EDT 11/17/2018 2:38 PM EDT Narrative Resulting Agency Comment Spec In Lab Justin Amezcua MD MICROBIOLOGY - BLOOD ORDERABLES Performing Organization Address [facility] Co de Phone Number [facility] [place] [address] * (ABNORMAL) Lower Respiratory Culture Bronchial Alveolar Lavage (11/17/2018 1:49 PM EDT) Lower Respiratory Culture No growth(A) [facility] Gram Stain Few Neutrophils seen Rare Gram Positive Rods seen (A) [facility] Organism Gram Positive Rods(A) [facility] Bronchoalveolar lavage fluid specimen (specimen) 11/17/2018 1:49 PM EDT 11/17/2018 6:45 PM EDT Narrative Resulting Agency Comment Spec In Lab Justin Amezcua MD MICROBIOLOGY - GENER AL ORDERABLES Performing Organization Address City/[facility]/ZIP Co de Phone Number [facility] [place] [address] * Blood culture (11/17/2018 12:30 PM EDT) Blood Culture No growth at 5 days. [facility] Blood specimen (specimen) STRUCTURE OF RIGHT HAND / Unknown 11/17/2018 12:30 PM EDT 11/17/2018 1:13 PM EDT Narrative Resulting Agency Comment Spec In Lab Justin Amezcua MD MICROBIOLOGY - BLOOD ORDERABLES Performing Organization Address [facility]/ZIP Co de Phone Number [facility] [place] [address] * POCT Glucose (11/17/2018 11:56 AM EDT) Glucose, POC 106 65 - 199 mg/dL [facility] Comment: Supplemental ranges: <140 mg/dL before meals <180 mg/dL all other times of the day Blood specimen (specimen) 11/17/2018 11:56 AM EDT 11/17/2018 11:56 AM EDT Vivian Valdez Jr., MD POINT OF CARE TE ST ORDERABLES Performing Organization Address [facility]/ZIP Co de Phone Number [facility] [place] [address] * XR Chest PA or AP 1 view (11/17/2018 11:36 AM EDT) Anatomical Region Laterality Modality Chest N/A Digital Radiogra phy Impressions 11/17/2018 11:51 AM EDT No acute cardiopulmonary process. Thank you for letting us participate in the care of this patient. For questions regarding this report, please contact the number below. ? Narrative 11/17/2018 11:51 AM EDT EXAMINATION: XR CHEST PA OR AP 1 VIEW CLINICAL HISTORY: fevers with ards TECHNIQUE: Portable AP semiupright chest COMPARISON: 11/16/2018 FINDINGS: There is a no interval change. In particular, there are no new pulmonary opacities. Again noted is diffuse vascular blurring consistent with resolving ARDS. Also again noted are the endotracheal tube, enteric tube, and left-sided central line. Procedure Note Maik Villatoro MD - 11/17/2018 EXAMINATION: XR CHEST PA OR AP 1 VIEW CLINICAL HISTORY: fevers with ards TECHNIQUE: Portable AP semiupright chest COMPARISON: 11/16/2018 FINDINGS: There is a no interval change. In particular, there are no new pulmonary opacities. Again noted is diffuse vascular blurring consistent withresolving ARDS. Also again noted are the endotracheal tube, enteric tube, andleft-sided central line. IMPRESSION No acute cardiopulmonary process. Thank you for letting us participate in the care of this patient. Forquestions regarding this report, please contact the number below. Justin Amezcua MD IMG DX ORDERABLES * (ABNORMAL) CK (11/17/2018 11:25 AM EDT) Creatine Kinase 2,493(H) 0 - 160 unit/L [facility] Blood specimen (specimen) 11/17/2018 11:25 AM EDT 11/17/2018 11:51 AM EDT Narrative Resulting Agency Comment Spec In Lab Vivian Valdez Jr., MD CHEMISTRY ORDERA BLES [facility] [place] [address] * POCT Glucose (11/17/2018 7:54 AM EDT) Glucose, POC 126 65 - 199 mg/dL [facility] Comment: Supplemental ranges: <140 mg/dL before meals <180 mg/dL all other times of the day Blood specimen (specimen) 11/17/2018 7:54 AM EDT 11/17/2018 7:54 AM EDT Vivian Valdez Jr., MD POINT OF CARE TE ST ORDERABLES [facility] [place] [address] * (ABNORMAL) BLOOD GAS 2 ARTERIAL (11/17/2018 7:32 AM EDT) pH, Arterial 7.43 7.35 - 7.45 [facility] PCO2, Arterial 40 35 - 45 mmHg [facility] PO2, Arterial 71(L) 85 - 104 mmHg [facility] Bicarbonate, Arterial 26.2(H) 20.0 - 26.0 mmol/L [facility] Base Excess, Arterial 1.9 -3.0 - 3.0 mmol/L [facility] Hgb Blood Gas 9.3(L) 11.7 - 15.5 gm/dL [facility] Oxyhemoglobin, Arterial 92.2(L) 94.0 - 97.0 % [facility] Carboxyhemoglob in, Arterial 0.4 % [facility] Comment: Nonsmokers: 0.5-1.5% COHB Smokers: Variable, but usually less than 10% Toxic: 20-30% COHB Lethal: Greater than 60% COHB Methemoglobin, Arterial 0.4 <=1.5 % [facility] Na Whole Blood 141 135 - 145 mmol/L [facility] K Whole Blood 4.1 3.5 - 5.0 mmol/L [facility] Comment: Please note: Patients with WBC >100,000 may have falsely elevated Potassium levels. Contact the Clinical Chemistry Laboratory if there are any questions. ICa Whole Blood 1.17 1.15 - 1.33 mmol/L [facility] Comment: Note: ??Total bilirubin higher than 20 mg/dL may lead to falsely low ionized calcium. CL Whole Blood 108(H) 98 - 107 mmol/L [facility] Gluc Whole Bld 120 65 - 199 mg/dL [facility] Comment:Diabetes: >=200 mg/d L plus symptoms. Lactate WB 0.7 0.5 - 2.2 mmol/L [facility] FIO2 Art 45 % [facility] PF Ratio Art 158 [facility] Blood specimen (specimen) 11/17/2018 7:32 AM EDT 11/17/2018 7:32 AM EDT Vivian Valdez Jr., MD POINT OF CARE TE ST ORDERABLES Performing Organization Address [facility] Co de Phone Number [facility] [place] [address] * POCT Glucose (11/17/2018 3:57 AM EDT) Pathologist [facility] Glucose, POC 115 65 - 199 mg/dL [facility] Comment: Supplemental ranges: <140 mg/dL before meals <180 mg/dL all other times of the day Blood specimen (specimen) 11/17/2018 3:57 AM EDT 11/17/2018 3:57 AM EDT Vivian Valdez Jr., MD POINT OF CARE TE ST ORDERABLES Performing Organization Address [facility] Co de Phone Number [facility] [place] [address] * (ABNORMAL) Differential, Automated (11/17/2018 1:25 AM EDT) Pathologist [facility] Neutrophil % 54.0 % [facility] Neutrophil Absolute 5.12 1.70 - 6.10 x10(3)/mc L [facility] Lymph % 35.9 % [facility] Lymphocytes Abs 3.4(H) 0.9 - 3.2 x10(3)/mc L [facility] Monocyte % 7.0 % [facility] Monocyte Abs 0.7 0.3 - 0.9 x10(3)/mc L [facility] Eos % 1.8 % [facility] Eosinophils Abs 0.2 0.0 - 0.4 x10(3)/mc L [facility] Basophil % 0.1 % [facility] Baso Absolute 0.0 0.0 - 0.1 x10(3)/ L [facility] Immature Gran % 1.20 % [facility] Comment: Immature granulocytes(IG's)percentage and absolute count will include metamyelocytes, myelocytes, and promyelocytes. Blood smears from CBCs yielding IG's will be scanned manually for concordance. If this scan disagrees with the automated IG or if promyelocytes are noted, a manual differential will be performed. Immature Gran Absolute 0.11(H) 0.00 - 0.04 x10(3)/ L [facility] Blood specimen (specimen) 11/17/2018 1:25 AM EDT 11/17/2018 1:39 AM EDT Narrative Resulting Agency Comment Spec In Lab Kelly Bermudez MD HEMATOLOGY ORDERABLE S Performing Organization Address City/State/[facility] Co de Phone Number [facility] [place] [address] * (ABNORMAL) Hemogram (11/17/2018 1:25 AM EDT) White Blood Cell 9.5 4.0 - 9.5 x10(3)/[facility] Red Blood Cell 3.09(L) 4.00 - 5.21 x10(6)/ L [facility] Hemoglobin 8.3(L) 11.7 - 15.5 gm/dL [facility] Hematocrit 26.4(L) 35.7 - 45.8 % [facility] Mean Cell Volume 85.4 82.6 - 94.4 fL [facility] Mean Cell Hemoglobin 26.9(L) 27.1 - 32.0 pg [facility] Mean Cell Hemoglobin Concentration 31.4(L) 31.7 - 35.0 gm/dL [facility] Platelet 201 145 - 357 x10(3)/[facility] RDW Standard Deviation 53.3(H) 37.0 - 46.0 fL [facility] RDW coefficient of variation 17.2(H) 11.5 - 14.1 % [facility] Mean Platelet Volume 11.4 7.6 - 12.9 fL [facility] NRBC% auto 0.2 % [facility] NRBC Absolute 0.020(H) 0.000 - 0.000 x10(3)/mc L [facility] Blood specimen (specimen) 11/17/2018 1:25 AM EDT 11/17/2018 1:39 AM EDT Narrative Resulting Agency Comment Spec In Lab Kelly Bermudez MD HEMATOLOGY ORDERABLE S [facility] [place] [address] * (ABNORMAL) Basic Metabolic Panel (non-fasting) (11/17/2018 1:25 AM EDT) Glucose 112 65 - 199 mg/dL [facility] Comment:Diabetes: >=200 mg/d L plus symptoms Blood Urea Nitrogen 30(H) 8 - 18 mg/dL [facility] Creatinine 0.92 0.70 - 1.20 mg/dL [facility] Sodium 148(H) 135 - 145 mmol/L [facility] Potassium 4.3 3.5 - 5.0 mmol/L [facility] Comment: Please note: ??Patients with WBC >100,000 may have falsely elevated Potassium levels. ??For accurate Potassium quantification in these patients send serum separator tube (gold top) for subsequent determinations. ??Contact the Clinical Chemistry Laboratory if there are any questions. Chloride 110(H) 98 - 107 mmol/L [facility] Carbon Dioxide 28 22 - 31 mmol/L [facility] Anion Gap 10 5 - 15 mmol/L [facility] Calcium 8.5 8.5 - 10.5 mg/dL [facility] Est Glomerular Filtration Rate 70 >=60 mL/min/1. 73 m?? [facility] Comment: The eGFR was calculated using the CKD-EPI equation. As with all creatinine based estimates of kidney function, eGFR values calculated with the CKD-EPI equation are not accurate in patients with acute kidney failure, extremes of body mass or the acutely ill. [email or web address] eGFR 81 >=60 mL/min/1. 73 m?? [facility] Comment: The eGFR was calculated using the CKD-EPI equation. As with all creatinine based estimates of kidney function, eGFR values calculated with the CKD-EPI equation are not accurate in patients with acute kidney failure, extremes of body mass or the acutely ill. [email or web address] Blood specimen (specimen) 11/17/2018 1:25 AM EDT 11/17/2018 1:39 AM EDT Narrative Resulting Agency Comment Spec In Lab Justin Amezcua MD CHEMISTRY ORDERABLES Performing Organization Address City/[facility]/ZIP Co de Phone Number [facility] [place] [address] * POCT Glucose (11/17/2018 12:16 AM EDT) Glucose, POC 111 65 - 199 mg/dL [facility] Comment: Supplemental ranges: <140 mg/dL before meals <180 mg/dL all other times of the day Blood specimen (specimen) 11/17/2018 12:16 AM EDT 11/17/2018 12:16 AM EDT Vivian Valdez Jr., MD POINT OF CARE TE ST ORDERABLES [facility] [place] [address] * POCT Glucose (11/16/2018 8:34 PM EDT) Glucose, POC 133 65 - 199 mg/dL [facility] Comment: Supplemental ranges: <140 mg/dL before meals <180 mg/dL all other times of the day Blood specimen (specimen) 11/16/2018 8:34 PM EDT 11/16/2018 8:34 PM EDT Vivian Valdez Jr., MD POINT OF CARE TE ST ORDERABLES Performing Organization Address [facility] Co de Phone Number [facility] [place] [address] * POCT Glucose (11/16/2018 3:53 PM EDT) Glucose, POC 115 65 - 199 mg/dL [facility] Comment: Supplemental ranges: <140 mg/dL before meals <180 mg/dL all other times of the day Blood specimen (specimen) 11/16/2018 3:53 PM EDT 11/16/2018 3:53 PM EDT Vivian Valdez Jr., MD POINT OF CARE TE ST ORDERABLES Performing Organization Address [facility] Co de Phone Number [facility] [place] [address] * POCT Glucose (11/16/2018 12:07 PM EDT) Glucose, POC 113 65 - 199 mg/dL [facility] Comment: Supplemental ranges: <140 mg/dL before meals <180 mg/dL all other times of the day Blood specimen (specimen) 11/16/2018 12:07 PM EDT 11/16/2018 12:07 PM EDT Vivian Valdez Jr., MD POINT OF CARE TE ST ORDERABLES Performing Organization Address [facility] Co de Phone Number [facility] [place] [address] * XR Chest PA or AP 1 view (11/16/2018 11:50 AM EDT) Anatomical Region Laterality Modality Chest N/A Digital Radiogra phy Impressions 11/16/2018 12:51 PM EDT Interval improvement in pulmonary edema since 11/13/2018. I have personally reviewed the image(s) and the residents interpretation and agree with the findings, Cirilo Bañuelos at 11/16/2018 12:51 PM Thank you for letting us participate in the care of this patient. For questions regarding this report, please contact the number below. ? Narrative 11/16/2018 12:51 PM EDT EXAMINATION: XR CHEST PA OR AP 1 VIEW CLINICAL HISTORY: 58-year-old woman with COPD who presents with ARDS the setting of influenza. Considering extubation. Evaluate for progression. TECHNIQUE: Frontal view chest radiograph COMPARISON: Chest radiograph 11/13/2018 FINDINGS: Endotracheal tube tip terminates 3.4 cm superior to the nicolasa. Enteric tube projects over the expected position of the esophagus and courses inferiorly off the [id number] over the abdomen. Left central venous catheter tip terminates in the proximal superior vena cava. Stable mild cardiomegaly.. Decreased prominence of the diffuse bilateral interstitial and airspace opacification. Persistent pulmonary vascular indistinctness. No radiographically evident pneumothorax or pleural effusion. Procedure Note Cirilo Bañuelos MD - 11/16/2018 EXAMINATION: XR CHEST PA OR AP 1 VIEW CLINICAL HISTORY: 58-year-old woman with COPD who presents with ARDS thesetting of influenza. Considering extubation. Evaluate for progression. TECHNIQUE: Frontal view chest radiograph COMPARISON: Chest radiograph 11/13/2018 FINDINGS: Endotracheal tube tip terminates 3.4 cm superior to the nicolasa. Enterictube projects over the expected position of the esophagus and coursesinferiorly off the [id number] over the abdomen. Left central venous catheter tipterminates in the proximal superior vena cava. Stable mild cardiomegaly.. Decreased prominence of the diffuse bilateral interstitial and airspace opacification. Persistent pulmonary vascular indistinctness. Noradiographically evident pneumothorax or pleural effusion. IMPRESSION Interval improvement in pulmonary edema since 11/13/2018. I have personally reviewed the image(s) and the residents interpretationand agree with the findings, Cirilo Bañuelos at 11/16/2018 12:51 PM Thank you for letting us participate in the care of this patient. Forquestions regarding this report, please contact the number below. Vivian Valdez Jr., MD IMG DX ORDERABLE S * (ABNORMAL) BLOOD GAS 2 ARTERIAL (11/16/2018 10:55 AM EDT) pH, Arterial 7.45 7.35 - 7.45 [facility] PCO2, Arterial 38 35 - 45 mmHg [facility] PO2, Arterial 70(L) 85 - 104 mmHg [facility] Bicarbonate, Arterial 26.3(H) 20.0 - 26.0 mmol/L [facility] Base Excess, Arterial 2.3 -3.0 - 3.0 mmol/L [facility] Hgb Blood Gas 9.4(L) 11.7 - 15.5 gm/dL [facility] Oxyhemoglobin, Arterial 92.5(L) 94.0 - 97.0 % [facility] Carboxyhemoglob in, Arterial 0.3 % [facility] Comment: Nonsmokers: 0.5-1.5% COHB Smokers: Variable, but usually less than 10% Toxic: 20-30% COHB Lethal: Greater than 60% COHB Methemoglobin, Arterial 0.3 <=1.5 % [facility] Na Whole Blood 141 135 - 145 mmol/L [facility] K Whole Blood 4.0 3.5 - 5.0 mmol/L [facility] Comment: Please note: Patients with WBC >100,000 may have falsely elevated Potassium levels. Contact the Clinical Chemistry Laboratory if there are any questions. ICa Whole Blood 1.19 1.15 - 1.33 mmol/L [facility] Comment: Note: ??Total bilirubin higher than 20 mg/dL may lead to falsely low ionized calcium. CL Whole Blood 110(H) 98 - 107 mmol/L [facility] Gluc Whole Bld 108 65 - 199 mg/dL [facility] Comment:Diabetes: >=200 mg/d L plus symptoms. Lactate WB 0.9 0.5 - 2.2 mmol/L [facility] FIO2 Art 35 % [facility] PF Ratio Art 200 [facility] Blood specimen (specimen) 11/16/2018 10:55 AM EDT 11/16/2018 10:55 AM EDT Vivian Valdez Jr., MD POINT OF CARE ST ORDERABLES Performing Organization Address City/[facility] Co de Phone Number [facility] [place] [address] * POCT Glucose (11/16/2018 10:23 AM EDT) Glucose, POC 114 65 - 199 mg/dL [facility] Comment: Supplemental ranges: <140 mg/dL before meals <180 mg/dL all other times of the day Blood specimen (specimen) 11/16/2018 10:23 AM EDT 11/16/2018 10:23 AM EDT Vivian Valdez Jr., MD POINT OF CARE TE ST ORDERABLES Performing Organization Address City/[facility]/ZIP Co de Phone Number [facility] [place] [address] * Lower Respiratory Culture Tracheal Aspirate (11/16/2018 10:09 AM EDT) Gram Stain Few Neutrophils seen No squamous epithelial cells seen No microorganisms seen. Useful clinical information is unlikely from specimens in which no microorganisms are seen on Gram Stain, Culture not performed. [facility] Specimen from trachea obtained by aspiration (specimen) 11/16/2018 10:09 AM EDT 11/16/2018 12:43 PM EDT Narrative Resulting Agency Comment Spec In Lab Vivian Valdez Jr., MD MICROBIOLOGY - G ENERAL ORDERABLES Performing Organization Address City/[facility]/ZIP Co de Phone Number [facility] [place] [address] * POCT Glucose (11/16/2018 8:05 AM EDT) Glucose, POC 124 65 - 199 mg/dL [facility] Comment: Supplemental ranges: <140 mg/dL before meals <180 mg/dL all other times of the day Blood specimen (specimen) 11/16/2018 8:05 AM EDT 11/16/2018 8:05 AM EDT Vivian Valdez Jr., MD POINT OF CARE TE ST ORDERABLES Performing Organization Address [facility]/ZIP Co de Phone Number [facility] [place] [address] * POCT Glucose (11/16/2018 3:50 AM EDT) Glucose, POC 145 65 - 199 mg/dL [facility] Comment: Supplemental ranges: <140 mg/dL before meals <180 mg/dL all other times of the day Blood specimen (specimen) 11/16/2018 3:50 AM EDT 11/16/2018 3:50 AM EDT Vivian Valdez Jr., MD POINT OF CARE TE ST ORDERABLES Performing Organization Address [facility]/ZIP Co de Phone Number [facility] [place] [address] * Magnesium (11/16/2018 2:25 AM EDT) Magnesium 1.02 0.69 - 1.07 mmol/L [facility] Blood specimen (specimen) Venous Draw / Unknown 11/16/2018 2:25 AM EDT 11/16/2018 3:45 AM EDT Narrative Resulting Agency Comment Spec In Lab Vickie Infante MD CHEMISTRY ORDERABLES [facility] [place] [address] * (ABNORMAL) Differential, Automated (11/16/2018 2:25 AM EDT) Neutrophil % 63.0 % [facility] Neutrophil Absolute 6.82(H) 1.70 - 6.10 x10(3)/ L [facility] Lymph % 29.2 % [facility] Lymphocytes Abs 3.2 0.9 - 3.2 x10(3)/[facility] Monocyte % 6.6 % [facility] Monocyte Abs 0.7 0.3 - 0.9 x10(3)/[facility] Eos % 0.3 % [facility] Eosinophils Abs 0.0 0.0 - 0.4 x10(3)/[facility] Basophil % 0.1 % [facility] Baso Absolute 0.0 0.0 - 0.1 x10(3)/mc L [facility] Immature Gran % 0.80 % [facility] Comment: Immature granulocytes(IG's)percentage and absolute count will include metamyelocytes, myelocytes, and promyelocytes. Blood smears from CBCs yielding IG's will be scanned manually for concordance. If this scan disagrees with the automated IG or if promyelocytes are noted, a manual differential will be performed. Immature Gran Absolute 0.09(H) 0.00 - 0.04 x10(3)/mc L [facility] Blood specimen (specimen) 11/16/2018 2:25 AM EDT 11/16/2018 2:38 AM EDT Narrative Resulting Agency Comment Spec In Lab Kelly Bermudez MD HEMATOLOGY ORDERABLE S Performing Organization Address City/[facility]/ZIP Co de Phone Number [facility] [place] [address] * (ABNORMAL) Hemogram (11/16/2018 2:25 AM EDT) White Blood Cell 10.8(H) 4.0 - 9.5 x10(3)/mc L [facility] Red Blood Cell 3.03(L) 4.00 - 5.21 x10(6)/mc L [facility] Hemoglobin 8.2(L) 11.7 - 15.5 gm/dL [facility] Hematocrit 26.4(L) 35.7 - 45.8 % [facility] Mean Cell Volume 87.1 82.6 - 94.4 fL [facility] Mean Cell Hemoglobin 27.1 27.1 - 32.0 pg [facility] Mean Cell Hemoglobin Concentration 31.1(L) 31.7 - 35.0 gm/dL [facility] Platelet 187 145 - 357 x10(3)/mc L [facility] RDW Standard Deviation 53.7(H) 37.0 - 46.0 fL [facility] RDW coefficient of variation 16.9(H) 11.5 - 14.1 % [facility] Mean Platelet Volume 11.5 7.6 - 12.9 fL [facility] NRBC% auto 0.0 % [facility] NRBC Absolute 0.000 0.000 - 0.000 x10(3)/mc L [facility] Blood specimen (specimen) 11/16/2018 2:25 AM EDT 11/16/2018 2:38 AM EDT Narrative Resulting Agency Comment Spec In Lab Kelly Bermudez MD HEMATOLOGY ORDERABLE S [facility] [place] [address] * (ABNORMAL) BMP w/fasting Glucose (11/16/2018 2:25 AM EDT) Glucose Fasting 126(H) 65 - 99 mg/dL [facility] Comment: ?Fasting* Glucose Interpretive Criteria Normal ?65-99 mg/dL Impaired Fasting glucose ?100-125 mg/dL Consistent with Diabetes Mellitus ? >or= 126 mg/dL *Fasting is defined as no caloric intake for at least 8 hours In the absence of unequivocal hyperglycemia a plasma glucose value of >or= 126 mg/dL should be repeated on a subsequent day. Diagnosis and Classification of Diabetes Mellitus, Position Statement from the [place] [employer]. ??Diabetes Care, Volume 33, Supplement 1, Aug 2009 Blood Urea Nitrogen 31(H) 8 - 18 mg/dL [facility] Creatinine 1.03 0.70 - 1.20 mg/dL [facility] Sodium 145 135 - 145 mmol/L [facility] Potassium 4.4 3.5 - 5.0 mmol/L [facility] Comment: Please note: ??Patients with WBC >100,000 may have falsely elevated Potassium levels. ??For accurate Potassium quantification in these patients send serum separator tube (gold top) for subsequent determinations. ??Contact the Clinical Chemistry Laboratory if there are any questions. Chloride 109(H) 98 - 107 mmol/L [facility] Carbon Dioxide 27 22 - 31 mmol/L [facility] Anion Gap 9 5 - 15 mmol/L [facility] Calcium 8.8 8.5 - 10.5 mg/dL [facility] Est Glomerular Filtration Rate 61 >=60 mL/min/1. 73 m?? [facility] Comment: The eGFR was calculated using the CKD-EPI equation. As with all creatinine based estimates of kidney function, eGFR values calculated with the CKD-EPI equation are not accurate in patients with acute kidney failure, extremes of body mass or the acutely ill. [email or web address] eGFR 70 >=60 mL/min/1. 73 m?? [facility] Comment: The eGFR was calculated using the CKD-EPI equation. As with all creatinine based estimates of kidney function, eGFR values calculated with the CKD-EPI equation are not accurate in patients with acute kidney failure, extremes of body mass or the acutely ill. [email or web address] Blood specimen (specimen) 11/16/2018 2:25 AM EDT 11/16/2018 2:37 AM EDT Narrative Resulting Agency Comment Spec In Lab Vivian Valdez Jr., MD CHEMISTRY ORDERA BLES Performing Organization Address [facility] Co de Phone Number [facility] [place] [address] * POCT Glucose (11/16/2018 12:51 AM EDT) Glucose, POC 132 65 - 199 mg/dL [facility] Comment: Supplemental ranges: <140 mg/dL before meals <180 mg/dL all other times of the day Blood specimen (specimen) 11/16/2018 12:51 AM EDT 11/16/2018 12:51 AM EDT Vivian Valdez Jr., MD POINT OF CARE TE ST ORDERABLES Performing Organization Address [facility] Co de Phone Number [facility] [place] [address] * (ABNORMAL) BLOOD GAS 2 ARTERIAL (11/15/2018 10:47 PM EDT) pH, Arterial 7.44 7.35 - 7.45 [facility] PCO2, Arterial 43 35 - 45 mmHg [facility] PO2, Arterial 65(L) 85 - 104 mmHg [facility] Bicarbonate, Arterial 28.3(H) 20.0 - 26.0 mmol/L [facility] Base Excess, Arterial 4.3(H) -3.0 - 3.0 mmol/L [facility] Hgb Blood Gas 9.5(L) 11.7 - 15.5 gm/dL [facility] Oxyhemoglobin, Arterial 91.6(L) 94.0 - 97.0 % [facility] Carboxyhemoglob in, Arterial 0.3 % [facility] Comment: Nonsmokers: 0.5-1.5% COHB Smokers: Variable, but usually less than 10% Toxic: 20-30% COHB Lethal: Greater than 60% COHB Methemoglobin, Arterial 0.2 <=1.5 % [facility] Na Whole Blood 141 135 - 145 mmol/L [facility] K Whole Blood 4.5 3.5 - 5.0 mmol/L [facility] Comment: Please note: Patients with WBC >100,000 may have falsely elevated Potassium levels. Contact the Clinical Chemistry Laboratory if there are any questions. ICa Whole Blood 1.19 1.15 - 1.33 mmol/L [facility] Comment: Note: ??Total bilirubin higher than 20 mg/dL may lead to falsely low ionized calcium. CL Whole Blood 110(H) 98 - 107 mmol/L [facility] Gluc Whole Bld 120 65 - 199 mg/dL [facility] Comment:Diabetes: >=200 mg/d L plus symptoms. Lactate WB 1.5 0.5 - 2.2 mmol/L [facility] FIO2 Art 35 % [facility] PF Ratio Art 186 [facility] Temp Art 37.7 Celsius [facility] Blood specimen (specimen) 11/15/2018 10:47 PM EDT 11/15/2018 10:47 PM EDT Vivian Valdez Jr., MD POINT OF CARE TE ST ORDERABLES [facility] [place] [address] * POCT Glucose (11/15/2018 9:20 PM EDT) Glucose, POC 121 65 - 199 mg/dL [facility] Comment: Supplemental ranges: <140 mg/dL before meals <180 mg/dL all other times of the day Blood specimen (specimen) 11/15/2018 9:20 PM EDT 11/15/2018 9:20 PM EDT Vivian Valdez Jr., MD POINT OF CARE TE ST ORDERABLES Performing Organization Address City/[facility]/ZIP Co de Phone Number [facility] [place] [address] * POCT Glucose (11/15/2018 3:19 PM EDT) Glucose, POC 116 65 - 199 mg/dL [facility] Comment: Supplemental ranges: <140 mg/dL before meals <180 mg/dL all other times of the day Blood specimen (specimen) 11/15/2018 3:19 PM EDT 11/15/2018 3:19 PM EDT Vivian Valdez Jr., MD POINT OF CARE [employer] ST ORDERABLES Performing Organization Address [facility] Co de Phone Number [facility] [place] [address] * POCT Glucose (11/15/2018 11:40 AM EDT) Glucose, POC 105 65 - 199 mg/dL [facility] Comment: Supplemental ranges: <140 mg/dL before meals <180 mg/dL all other times of the day Blood specimen (specimen) 11/15/2018 11:40 AM EDT 11/15/2018 11:40 AM EDT Vivian Valdez Jr., MD POINT OF CARE TE ST ORDERABLES Performing Organization Address City/[facility]/ZIP Co de Phone Number [facility] [place] [address] * Methylmalonic acid, serum (11/15/2018 9:50 AM EDT) [facility] Methylmalonic Acid (MAY) 0.29 <=0.40 nmol/mL [facility] Comment: ADDITIONAL INFORMATION This test was developed and its performance characteristics determined by [facility] in a manner consistent with CLIA requirements. This test has not been cleared or approved by the U.S. Food and Drug Administration. Test Performed by: [address] [address] Blood specimen (specimen) Venous Draw / Unknown 11/15/2018 9:50 AM EDT 11/17/2018 9:05 AM EDT Narrative Resulting Agency Comment Spec In Lab Natali Kingston MD LAB SEND OUT ORDERA BLES Performing Organization Address [facility]/ZIP Co de Phone Number [facility] [place] [address] * (ABNORMAL) Folate, serum (11/15/2018 9:50 AM EDT) [facility] Folate 3.1(L) 4.8 - 24.2 ng/mL [facility] Blood specimen (specimen) 11/15/2018 9:50 AM EDT 11/15/2018 9:55 AM EDT Narrative Resulting Agency Comment Spec In Lab Vivian Valdez Jr., MD CHEMISTRY ORDERA BLES Performing Organization Address [facility]/ZIP Co de Phone Number [facility] [place] [address] * (ABNORMAL) Reticulocyte Count (11/15/2018 9:50 AM EDT) [facility] Reticulocyte % 1.3 0.7 - 2.5 % [facility] Retic Abs # 0.040 0.020 - 0.110 x10(6)/mcL [facility] Immature Retic% 29.1(H) 0.5 - 13.8 % [facility] Reticulated Hgb 22.9(L) 29.8 - 39.4 pg [facility] Blood specimen (specimen) 11/15/2018 9:50 AM EDT 11/15/2018 9:55 AM EDT Narrative Resulting Agency Comment Spec In Lab Vivian Valdez Jr., MD HEMATOLOGY ORDER DAMARIS Performing Organization Address City/[facility] Co de Phone Number [facility] [place] [address] * Vitamin B12 (11/15/2018 9:50 AM EDT) [facility] Vitamin B12 237 232 - 1,245 pg/mL [facility] Blood specimen (specimen) 11/15/2018 9:50 AM EDT 11/15/2018 9:55 AM EDT Narrative Resulting Agency Comment Spec In Lab Vivian Valdez Jr., MD CHEMISTRY EUGENIA ZALDIVAR Performing Organization Address [facility] Co de Phone Number [facility] [place] [address] * (ABNORMAL) Ferritin (11/15/2018 9:50 AM EDT) [facility] Ferritin 502(H) 30 - 400 ng/mL [facility] Comment: Pediatric reference ranges not verified at [facility], interpret with caution. Reference ranges for females greater than 50 years of age approach values for men, i.e., 30-400 ng/mL. Blood specimen (specimen) 11/15/2018 9:50 AM EDT 11/15/2018 9:55 AM EDT Narrative Resulting Agency Comment Spec In Lab Vivian Valdez Jr., MD CHEMISTRY EUGENIA ZALDIVAR Performing Organization Address [facility] Co de Phone Number [facility] [place] [address] * (ABNORMAL) Iron and TIBC (11/15/2018 9:50 AM EDT) [facility] Signature Iron 31 30 - 150 mcg/dL [facility] TIBC 214(L) 250 - 450 mcg/dL [facility] Iron Saturation 14(L) 20 - 50 % [facility] Blood specimen (specimen) 11/15/2018 9:50 AM EDT 11/15/2018 9:55 AM EDT Narrative Resulting Agency Comment Spec In Lab Vivian Valdez Jr., MD CHEMISTRY ORDERA BLES Performing Organization Address [facility] de Phone Number [facility] [place] [address] * POCT Glucose (11/15/2018 7:45 AM EDT) [facility] Glucose, POC 118 65 - 199 mg/dL [facility] Comment: Supplemental ranges: <140 mg/dL before meals <180 mg/dL all other times of the day Blood specimen (specimen) 11/15/2018 7:45 AM EDT 11/15/2018 7:45 AM EDT Vivian Valdez Jr., MD POINT OF CARE TE ST ORDERABLES Performing Organization Address [facility] Phone Number [facility] [place] [address] * (ABNORMAL) BLOOD GAS 2 ARTERIAL (11/15/2018 6:13 AM EDT) [facility] pH, Arterial 7.29(Criti nanette) 7.35 - 7.45 [facility] Comment:Noted by panel instrument repairer. PCO2, Arterial 57(H) 35 - 45 mmHg [facility] PO2, Arterial 84(L) 85 - 104 mmHg [facility] Bicarbonate, Arterial 26.5(H) 20.0 - 26.0 mmol/L [facility] Base Excess, Arterial -0.1 -3.0 - 3.0 mmol/L [facility] Hgb Blood Gas 9.7(L) 11.7 - 15.5 gm/dL [facility] Oxyhemoglobin, Arterial 94.5 94.0 - 97.0 % [facility] Carboxyhemoglob in, Arterial 0.1 % [facility] Comment: Nonsmokers: 0.5-1.5% COHB Smokers: Variable, but usually less than 10% Toxic: 20-30% COHB Lethal: Greater than 60% COHB Methemoglobin, Arterial 0.4 <=1.5 % [facility] Na Whole Blood 143 135 - 145 mmol/L [facility] K Whole Blood 4.6 3.5 - 5.0 mmol/L [facility] Comment: Please note: Patients with WBC >100,000 may have falsely elevated Potassium levels. Contact the Clinical Chemistry Laboratory if there are any questions. ICa Whole Blood 1.20 1.15 - 1.33 mmol/L [facility] Comment: Note: ??Total bilirubin higher than 20 mg/dL may lead to falsely low ionized calcium. CL Whole Blood 111(H) 98 - 107 mmol/L [facility] Gluc Whole Bld 107 65 - 199 mg/dL [facility] Comment:Diabetes: >=200 mg/d L plus symptoms. Lactate WB 1.3 0.5 - 2.2 mmol/L [facility] FIO2 Art 40 % [facility] PF Ratio Art 210 [facility] Blood specimen (specimen) 11/15/2018 6:13 AM EDT 11/15/2018 6:13 AM EDT Vivian Valdez Jr., MD POINT OF CARE TE ST ORDERABLES [facility] [place] [address] * POCT Glucose (11/15/2018 3:53 AM EDT) Glucose, POC 120 65 - 199 mg/dL [facility] Comment: Supplemental ranges: <140 mg/dL before meals <180 mg/dL all other times of the day Blood specimen (specimen) 11/15/2018 3:53 AM EDT 11/15/2018 3:53 AM EDT Vivian Valdez Jr., MD POINT OF CARE TE ST ORDERABLES [facility] [place] [address] * (ABNORMAL) Differential, Automated (11/15/2018 12:35 AM EDT) Neutrophil % 72.9 % [facility] Neutrophil Absolute 8.37(H) 1.70 - 6.10 x10(3)/[facility] Lymph % 18.4 % [facility] Lymphocytes Abs 2.1 0.9 - 3.2 x10(3)/[facility] Monocyte % 7.8 % [facility] Monocyte Abs 0.9 0.3 - 0.9 x10(3)/[facility] Eos % 0.0 % [facility] Eosinophils Abs 0.0 0.0 - 0.4 x10(3)/[facility] Basophil % 0.1 % [facility] Baso Absolute 0.0 0.0 - 0.1 x10(3)/[facility] Immature Gran % 0.80 % [facility] Comment: Immature granulocytes(IG's)percentage and absolute count will include metamyelocytes, myelocytes, and promyelocytes. Blood smears from CBCs yielding IG's will be scanned manually for concordance. If this scan disagrees with the automated IG or if promyelocytes are noted, a manual differential will be performed. Immature Gran Absolute 0.09(H) 0.00 - 0.04 x10(3)/[facility] Blood specimen (specimen) 11/15/2018 12:35 AM EDT 11/15/2018 12:48 AM EDT Narrative Resulting Agency Comment Spec In Lab Kelly Bermudez MD HEMATOLOGY ORDERABLE S [facility] [place] [address] * (ABNORMAL) Hemogram (11/15/2018 12:35 AM EDT) White Blood Cell 11.5(H) 4.0 - 9.5 x10(3)/mc L [facility] Red Blood Cell 3.29(L) 4.00 - 5.21 x10(6)/mc L [facility] Hemoglobin 8.9(L) 11.7 - 15.5 gm/dL [facility] Hematocrit 29.6(L) 35.7 - 45.8 % [facility] Mean Cell Volume 90.0 82.6 - 94.4 fL [facility] Mean Cell Hemoglobin 27.1 27.1 - 32.0 pg [facility] Mean Cell Hemoglobin Concentration 30.1(L) 31.7 - 35.0 gm/dL [facility] Platelet 190 145 - 357 x10(3)/mc L [facility] RDW Standard Deviation 55.0(H) 37.0 - 46.0 fL [facility] RDW coefficient of variation 16.8(H) 11.5 - 14.1 % [facility] Mean Platelet Volume 11.4 7.6 - 12.9 fL [facility] NRBC% auto 0.0 % [facility] NRBC Absolute 0.000 0.000 - 0.000 x10(3)/mc L [facility] Blood specimen (specimen) 11/15/2018 12:35 AM EDT 11/15/2018 12:48 AM EDT Narrative Resulting Agency Comment Spec In Lab Kelly Bermudez MD HEMATOLOGY ORDERABLE S [facility] [place] [address] * (ABNORMAL) BMP w/fasting Glucose (11/15/2018 12:35 AM EDT) [facility] Signature Glucose Fasting 121(H) 65 - 99 mg/dL [facility] Comment: ?Fasting* Glucose Interpretive Criteria Normal ?65-99 mg/dL Impaired Fasting glucose ?100-125 mg/dL Consistent with Diabetes Mellitus ? >or= 126 mg/dL *Fasting is defined as no caloric intake for at least 8 hours In the absence of unequivocal hyperglycemia a plasma glucose value of >or= 126 mg/dL should be repeated on a subsequent day. Diagnosis and Classification of Diabetes Mellitus, Position Statement from the [place] [employer]. ??Diabetes Care, Volume 33, Supplement 1, Aug 2009 Blood Urea Nitrogen 30(H) 8 - 18 mg/dL [facility] Creatinine 1.45(H) 0.70 - 1.20 mg/dL [facility] Sodium 144 135 - 145 mmol/L [facility] Potassium 4.8 3.5 - 5.0 mmol/L [facility] Comment: Please note: ??Patients with WBC >100,000 may have falsely elevated Potassium levels. ??For accurate Potassium quantification in these patients send serum separator tube (gold top) for subsequent determinations. ??Contact the Clinical Chemistry Laboratory if there are any questions. Chloride 107 98 - 107 mmol/L [facility] Carbon Dioxide 25 22 - 31 mmol/L [facility] Anion Gap 12 5 - 15 mmol/L [facility] Calcium 8.7 8.5 - 10.5 mg/dL [facility] Est Glomerular Filtration Rate 40(L) >=60 mL/min/1. 73 m?? [facility] Comment: The eGFR was calculated using the CKD-EPI equation. As with all creatinine based estimates of kidney function, eGFR values calculated with the CKD-EPI equation are not accurate in patients with acute kidney failure, extremes of body mass or the acutely ill. [email or web address] eGFR 47(L) >=60 mL/min/1. 73 m?? [facility] Comment: The eGFR was calculated using the CKD-EPI equation. As with all creatinine based estimates of kidney function, eGFR values calculated with the CKD-EPI equation are not accurate in patients with acute kidney failure, extremes of body mass or the acutely ill. [email or web address] Blood specimen (specimen) 11/15/2018 12:35 AM EDT 11/15/2018 12:48 AM EDT Narrative Resulting Agency Comment Spec In Lab Vivian Valdez Jr., MD CHEMISTRY ORDERA BLES Performing Organization Address [facility] Co de Phone Number [facility] [place] [address] * POCT Glucose (11/15/2018 12:34 AM EDT) Glucose, POC 126 65 - 199 mg/dL [facility] Comment: Supplemental ranges: <140 mg/dL before meals <180 mg/dL all other times of the day Blood specimen (specimen) 11/15/2018 12:34 AM EDT 11/15/2018 12:34 AM EDT Vivian Valdez Jr., MD POINT OF CARE TE ST ORDERABLES [facility] [place] [address] * POCT Glucose (11/14/2018 7:54 PM EDT) Glucose, POC 128 65 - 199 mg/dL [facility] Comment: Supplemental ranges: <140 mg/dL before meals <180 mg/dL all other times of the day Blood specimen (specimen) 11/14/2018 7:54 PM EDT 11/14/2018 7:54 PM EDT Vivian Valdez Jr., MD POINT OF CARE TE ST ORDERABLES [facility] [place] [address] * (ABNORMAL) BLOOD GAS 2 ARTERIAL (11/14/2018 4:59 PM EDT) pH, Arterial 7.22(Criti nanette) 7.35 - 7.45 [facility] Comment:Noted by panel instrument repairer. PCO2, Arterial 63(Critica l) 35 - 45 mmHg [facility] Comment:Noted by panel instrument repairer. PO2, Arterial 72(L) 85 - 104 mmHg [facility] Bicarbonate, Arterial 25.4 20.0 - 26.0 mmol/L [facility] Base Excess, Arterial -2.2 -3.0 - 3.0 mmol/L [facility] Hgb Blood Gas 10.4(L) 11.7 - 15.5 gm/dL [facility] Oxyhemoglobin, Arterial 91.7(L) 94.0 - 97.0 % [facility] Carboxyhemoglob in, Arterial 0.3 % [facility] Comment: Nonsmokers: 0.5-1.5% COHB Smokers: Variable, but usually less than 10% Toxic: 20-30% COHB Lethal: Greater than 60% COHB Methemoglobin, Arterial 0.3 <=1.5 % [facility] Na Whole Blood 142 135 - 145 mmol/L [facility] K Whole Blood 4.7 3.5 - 5.0 mmol/L [facility] Comment: Please note: Patients with WBC >100,000 may have falsely elevated Potassium levels. Contact the Clinical Chemistry Laboratory if there are any questions. ICa Whole Blood 1.18 1.15 - 1.33 mmol/L [facility] Comment: Note: ??Total bilirubin higher than 20 mg/dL may lead to falsely low ionized calcium. CL Whole Blood 109(H) 98 - 107 mmol/L [facility] Gluc Whole Bld 135 65 - 199 mg/dL [facility] Comment:Diabetes: >=200 mg/d L plus symptoms. Lactate WB 1.2 0.5 - 2.2 mmol/L [facility] FIO2 Art 40 % [facility] PF Ratio Art 180 [facility] Blood specimen (specimen) 11/14/2018 4:59 PM EDT 11/14/2018 4:59 PM EDT Vivian Valdez Jr., MD POINT OF CARE TE ST ORDERABLES [facility] [place] [address] * POCT Glucose (11/14/2018 4:18 PM EDT) Glucose, POC 131 65 - 199 mg/dL [facility] Comment: Supplemental ranges: <140 mg/dL before meals <180 mg/dL all other times of the day Blood specimen (specimen) 11/14/2018 4:18 PM EDT 11/14/2018 4:18 PM EDT Vivian Valdez Jr., MD POINT OF CARE TE ST ORDERABLES Performing Organization Address City/[facility]/ZIP Co de Phone Number [facility] [place] [address] * POCT Glucose (11/14/2018 12:08 PM EDT) Glucose, POC 164 65 - 199 mg/dL [facility] Comment: Supplemental ranges: <140 mg/dL before meals <180 mg/dL all other times of the day Blood specimen (specimen) 11/14/2018 12:08 PM EDT 11/14/2018 12:08 PM EDT Vivian Valdez Jr., MD POINT OF CARE TE ST ORDERABLES Performing Organization Address City/[facility]/ZIP Co de Phone Number [facility] [place] [address] * (ABNORMAL) BLOOD GAS 2 ARTERIAL (11/14/2018 10:26 AM EDT) pH, Arterial 7.21(Criti nanette) 7.35 - 7.45 [facility] PCO2, Arterial 60(H) 35 - 45 mmHg [facility] PO2, Arterial 77(L) 85 - 104 mmHg [facility] Bicarbonate, Arterial 23.5 20.0 - 26.0 mmol/L [facility] Base Excess, Arterial -4.3(L) -3.0 - 3.0 mmol/L [facility] Hgb Blood Gas 10.6(L) 11.7 - 15.5 gm/dL [facility] Oxyhemoglobin, Arterial 92.7(L) 94.0 - 97.0 % [facility] Carboxyhemoglob in, Arterial 0.2 % [facility] Comment: Nonsmokers: 0.5-1.5% COHB Smokers: Variable, but usually less than 10% Toxic: 20-30% COHB Lethal: Greater than 60% COHB Methemoglobin, Arterial 0.3 <=1.5 % [facility] Na Whole Blood 141 135 - 145 mmol/L [facility] K Whole Blood 4.9 3.5 - 5.0 mmol/L [facility] Comment: Please note: Patients with WBC >100,000 may have falsely elevated Potassium levels. Contact the Clinical Chemistry Laboratory if there are any questions. ICa Whole Blood 1.19 1.15 - 1.33 mmol/L [facility] Comment: Note: ??Total bilirubin higher than 20 mg/dL may lead to falsely low ionized calcium. CL Whole Blood 108(H) 98 - 107 mmol/L [facility] Gluc Whole Bld 179 65 - 199 mg/dL [facility] Comment:Diabetes: >=200 mg/d L plus symptoms. Lactate WB 1.1 0.5 - 2.2 mmol/L [facility] FIO2 Art 50 % [facility] PF Ratio Art 154 [facility] Blood specimen (specimen) 11/14/2018 10:26 AM EDT 11/14/2018 10:26 AM EDT Vivian Valdez Jr., MD POINT OF CARE ST ORDERABLES Performing Organization Address [facility]/ZIP Co de Phone Number [facility] [place] [address] * POCT Glucose (11/14/2018 8:51 AM EDT) Pathologist [facility] Glucose, POC 181 65 - 199 mg/dL [facility] Comment: Supplemental ranges: <140 mg/dL before meals <180 mg/dL all other times of the day Blood specimen (specimen) 11/14/2018 8:51 AM EDT 11/14/2018 8:51 AM EDT Vivian Valdez Jr., MD POINT OF CARE ST ORDERABLES Performing Organization Address [facility] Co de Phone Number [facility] [place] [address] * Scan, Peripheral Blood (11/14/2018 8:50 AM EDT) [facility] Plat estimate Normal [facility] RBC Morphology Abnormal [facility] Hypochromia Slight [facility] Eckerman Cells 1-5 /HPF [facility] Blood specimen (specimen) 11/14/2018 8:50 AM EDT 11/14/2018 8:57 AM EDT Narrative Resulting Agency Comment Spec In Lab Kelly Bermudez MD HEMATOLOGY ORDERABLE S Performing Organization Address [facility] Co de Phone Number [facility] [place] [address] * (ABNORMAL) Differential, Automated (11/14/2018 8:50 AM EDT) [facility] Neutrophil % 83.3 % [facility] Neutrophil Absolute 12.67(H) 1.70 - 6.10 x10(3)/mc L [facility] Lymph % 10.1 % [facility] Lymphocytes Abs 1.5 0.9 - 3.2 x10(3)/[facility] Monocyte % 5.9 % [facility] Monocyte Abs 0.9 0.3 - 0.9 x10(3)/[facility] Eos % 0.0 % [facility] Eosinophils Abs 0.0 0.0 - 0.4 x10(3)/[facility] Basophil % 0.1 % [facility] Baso Absolute 0.0 0.0 - 0.1 x10(3)/[facility] Immature Gran % 0.60 % [facility] Comment: Immature granulocytes(IG's)percentage and absolute count will include metamyelocytes, myelocytes, and promyelocytes. Blood smears from CBCs yielding IG's will be scanned manually for concordance. If this scan disagrees with the automated IG or if promyelocytes are noted, a manual differential will be performed. Immature Gran Absolute 0.09(H) 0.00 - 0.04 x10(3)/[facility] Blood specimen (specimen) 11/14/2018 8:50 AM EDT 11/14/2018 8:57 AM EDT Narrative Resulting Agency Comment Spec In Lab Kelly Bermudez MD HEMATOLOGY ORDERABLE S [facility] [place] [address] * (ABNORMAL) Hemogram (11/14/2018 8:50 AM EDT) White Blood Cell 15.2(H) 4.0 - 9.5 x10(3)/[facility] Red Blood Cell 3.46(L) 4.00 - 5.21 x10(6)/[facility] Hemoglobin 9.3(L) 11.7 - 15.5 gm/dL [facility] Hematocrit 31.2(L) 35.7 - 45.8 % [facility] Mean Cell Volume 90.2 82.6 - 94.4 fL [facility] Mean Cell Hemoglobin 26.9(L) 27.1 - 32.0 pg [facility] Mean Cell Hemoglobin Concentration 29.8(L) 31.7 - 35.0 gm/dL [facility] Platelet 247 145 - 357 x10(3)/mc L [facility] RDW Standard Deviation 55.4(H) 37.0 - 46.0 fL [facility] RDW coefficient of variation 16.7(H) 11.5 - 14.1 % [facility] Mean Platelet Volume 11.5 7.6 - 12.9 fL [facility] NRBC% auto 0.0 % [facility] NRBC Absolute 0.000 0.000 - 0.000 x10(3)/mc L [facility] Blood specimen (specimen) 11/14/2018 8:50 AM EDT 11/14/2018 8:57 AM EDT Narrative Resulting Agency Comment Spec In Lab Kelly Bermudez MD HEMATOLOGY ORDERABLE S Performing Organization Address City/State/[facility] Co de Phone Number [facility] [place] [address] * (ABNORMAL) BLOOD GAS 2 ARTERIAL (11/14/2018 5:22 AM EDT) pH, Arterial 7.13(Criti nanette) 7.35 - 7.45 [facility] PCO2, Arterial 71(Critica l) 35 - 45 mmHg [facility] PO2, Arterial 79(L) 85 - 104 mmHg [facility] Bicarbonate, Arterial 23.0 20.0 - 26.0 mmol/L [facility] Base Excess, Arterial -6.2(L) -3.0 - 3.0 mmol/L [facility] Hgb Blood Gas 11.1(L) 11.7 - 15.5 gm/dL [facility] Oxyhemoglobin, Arterial 91.6(L) 94.0 - 97.0 % [facility] Carboxyhemoglob in, Arterial 0.5 % [facility] Comment: Nonsmokers: 0.5-1.5% COHB Smokers: Variable, but usually less than 10% Toxic: 20-30% COHB Lethal: Greater than 60% COHB Methemoglobin, Arterial 0.3 <=1.5 % [facility] Na Whole Blood 141 135 - 145 mmol/L [facility] K Whole Blood 4.8 3.5 - 5.0 mmol/L [facility] Comment: Please note: Patients with WBC >100,000 may have falsely elevated Potassium levels. Contact the Clinical Chemistry Laboratory if there are any questions. ICa Whole Blood 1.20 1.15 - 1.33 mmol/L [facility] Comment: Note: ??Total bilirubin higher than 20 mg/dL may lead to falsely low ionized calcium. CL Whole Blood 108(H) 98 - 107 mmol/L [facility] Gluc Whole Bld 193 65 - 199 mg/dL [facility] Comment:Diabetes: >=200 mg/d L plus symptoms. Lactate WB 0.9 0.5 - 2.2 mmol/L [facility] FIO2 Art 50 % [facility] PF Ratio Art 158 [facility] Blood specimen (specimen) 11/14/2018 5:22 AM EDT 11/14/2018 5:22 AM EDT Vivian Valdez Jr., MD POINT OF CARE TE ST ORDERABLES [facility] [place] [address] * (ABNORMAL) Basic Metabolic Panel (non-fasting) (11/14/2018 5:20 AM EDT) Glucose 186 65 - 199 mg/dL [facility] Comment:Diabetes: >=200 mg/d L plus symptoms Blood Urea Nitrogen 24(H) 8 - 18 mg/dL [facility] Creatinine 1.30(H) 0.70 - 1.20 mg/dL [facility] Sodium 143 135 - 145 mmol/L [facility] Potassium 4.9 3.5 - 5.0 mmol/L [facility] Comment: Please note: ??Patients with WBC >100,000 may have falsely elevated Potassium levels. ??For accurate Potassium quantification in these patients send serum separator tube (gold top) for subsequent determinations. ??Contact the Clinical Chemistry Laboratory if there are any questions. Chloride 108(H) 98 - 107 mmol/L [facility] Carbon Dioxide 23 22 - 31 mmol/L [facility] Anion Gap 12 5 - 15 mmol/L [facility] Calcium 8.3(L) 8.5 - 10.5 mg/dL [facility] Est Glomerular Filtration Rate 46(L) >=60 mL/min/1. 73 m?? [facility] Comment: The eGFR was calculated using the CKD-EPI equation. As with all creatinine based estimates of kidney function, eGFR values calculated with the CKD-EPI equation are not accurate in patients with acute kidney failure, extremes of body mass or the acutely ill. [email or web address] eGFR 53(L) >=60 mL/min/1. 73 m?? [facility] Comment: The eGFR was calculated using the CKD-EPI equation. As with all creatinine based estimates of kidney function, eGFR values calculated with the CKD-EPI equation are not accurate in patients with acute kidney failure, extremes of body mass or the acutely ill. [email or web address] Blood specimen (specimen) 11/14/2018 5:20 AM EDT 11/14/2018 5:32 AM EDT Narrative Resulting Agency Comment Spec In Lab Vivian Valdez Jr., MD CHEMISTRY ORDERA [facility] Organization Address City/State/ZIP Co de Phone Number [facility] [place] [address] * POCT Glucose (11/14/2018 2:33 AM EDT) [facility] Glucose, POC 192 65 - 199 mg/dL [facility] Comment: Supplemental ranges: <140 mg/dL before meals <180 mg/dL all other times of the day Blood specimen (specimen) 11/14/2018 2:33 AM EDT 11/14/2018 2:33 AM EDT Vivian Valdez Jr., MD POINT OF CARE TE ST ORDERABLES Performing Organization Address City/[facility]/ZIP Co de Phone Number [facility] [place] [address] * Blood culture (11/14/2018 1:43 AM EDT) [facility] Blood Culture No growth at 5 days. [facility] Blood specimen (specimen) 11/14/2018 1:43 AM EDT 11/14/2018 2:12 AM EDT Comment:NEW A LINE Narrative Resulting Agency Comment Spec In Lab Vivian Valdez Jr., MD MICROBIOLOGY - B LOOD ORDERABLES Performing Organization Address [facility]/ZIP Co de Phone Number [facility] [place] [address] * (ABNORMAL) BLOOD GAS 2 ARTERIAL (11/14/2018 1:40 AM EDT) [facility] pH, Arterial 7.08(Criti nanette) 7.35 - 7.45 [facility] Comment:Noted by panel instrument repairer. PCO2, Arterial 77(Critica l) 35 - 45 mmHg [facility] Comment:Noted by panel instrument repairer. PO2, Arterial 114(H) 85 - 104 mmHg [facility] Bicarbonate, Arterial 22.4 20.0 - 26.0 mmol/L [facility] Base Excess, Arterial -7.6(L) -3.0 - 3.0 mmol/L [facility] Hgb Blood Gas 11.4(L) 11.7 - 15.5 gm/dL [facility] Oxyhemoglobin, Arterial 96.0 94.0 - 97.0 % [facility] Carboxyhemoglob in, Arterial 0.1 % [facility] Comment: Nonsmokers: 0.5-1.5% COHB Smokers: Variable, but usually less than 10% Toxic: 20-30% COHB Lethal: Greater than 60% COHB Methemoglobin, Arterial 0.4 <=1.5 % [facility] Na Whole Blood 141 135 - 145 mmol/L [facility] K Whole Blood 4.4 3.5 - 5.0 mmol/L [facility] Comment: Please note: Patients with WBC >100,000 may have falsely elevated Potassium levels. Contact the Clinical Chemistry Laboratory if there are any questions. ICa Whole Blood 1.21 1.15 - 1.33 mmol/L [facility] Comment: Note: ??Total bilirubin higher than 20 mg/dL may lead to falsely low ionized calcium. CL Whole Blood 108(H) 98 - 107 mmol/L [facility] Gluc Whole Bld 196 65 - 199 mg/dL [facility] Comment:Diabetes: >=200 mg/d L plus symptoms. Lactate WB 0.8 0.5 - 2.2 mmol/L [facility] FIO2 Art 80 % [facility] PF Ratio Art 142 [facility] Blood specimen (specimen) 11/14/2018 1:40 AM EDT 11/14/2018 1:40 AM EDT Vivian Valdez Jr., MD POINT OF CARE TE ST ORDERABLES [facility] [place] [address] * Urea nitrogen, urine, random (11/13/2018 11:50 PM EDT) Urea Nitrogen, Urine 168 mg/dL [facility] Urine specimen (specimen) Urine / Unknown 11/13/2018 11:50 PM EDT 11/14/2018 Narrative Resulting Agency Comment Spec In Lab Natali Kingston MD URINE ORDERABLES Performing Organization Address City/[facility] Co de Phone Number [facility] [place] [address] * Creatinine, urine, random (11/13/2018 11:50 PM EDT) Creatinine, Urine 59 mg/dL [facility] Urine specimen (specimen) Urine / Unknown 11/13/2018 11:50 PM EDT 11/14/2018 Narrative Resulting Agency Comment Spec In Lab Natali Kingston MD URINE ORDERABLES Performing Organization Address [facility] Co de Phone Number [facility] [place] [address] * Electrolytes, urine, random (11/13/2018 11:50 PM EDT) Sodium, Urine 38 mmol/L [facility] Potassium, Urine 40 mmol/L [facility] Chloride, Urine 48 mmol/L [facility] Urine specimen (specimen) Urine / Unknown 11/13/2018 11:50 PM EDT 11/14/2018 Narrative Resulting Agency Comment Spec In Lab Natali Kingston MD URINE ORDERABLES Performing Organization Address [facility] Co de Phone Number [facility] [place] [address] * Legionella Urinary Antigen (11/13/2018 11:50 PM EDT) Legionella Urinary Antigen Negative Negative [facility] Comment: A negative Legionella Urinary Antigen by EIA suggests no recent or current infection with L. pneumophila Serogroup 1. Antigen may not be present in urine in early infection, and the level of antigen present in the urine may be below the detection limit of the test. Sensitivity: 95% Specificity 95%. Urine specimen (specimen) 11/13/2018 11:50 PM EDT 11/14/2018 7:55 AM EDT Narrative Resulting Agency Comment Spec In Lab Vivian Valdez Jr., MD MICROBIOLOGY - G ENERAL ORDERABLES Performing Organization Address [facility] Co de Phone Number [facility] [place] [address] * (ABNORMAL) Urinalysis Microscopic Exam (11/13/2018 11:39 PM EDT) RBC, Urine 28(H) 0 - 4 /HPF [facility] WBC, Urine 2 0 - 5 /HPF [facility] Urine specimen obtained via indwelling urinary catheter (specimen) 11/13/2018 11:39 PM EDT 11/13/2018 11:58 PM EDT Narrative Resulting Agency Comment Spec In Lab Natali Kingston MD URINE ORDERABLES Performing Organization Address [facility] Co de Phone Number [facility] [place] [address] * (ABNORMAL) Urinalysis with reflex Culture (11/13/2018 11:39 PM EDT) Glucose, Urine Dipstick Negative Negative mg/dL [facility] Protein, Urine Dipstick 30(A) Negative mg/dL [facility] Bilirubin, Urine Dipstick Negative Negative mg/dL [facility] Comment: Clinical correlation required for positive Urine Bilirubin results as false positive may occur with some drugs and drug related products. If a false positive is suspected a serum total bilirubin should be considered if clinically indicated. Urobilinogen, Urine Dipstick Normal Normal mg/dL [facility] pH, Urn (dipstick) 5.0 5.0 - 8.0 [facility] Blood, Urine Dipstick Moderate(A) Negative mg/dL [facility] Ketone, Urine Dipstick Negative Negative mg/dL [facility] Nitrite, Urine Dipstick Negative Negative [facility] Leukocytes, Urine Dipstick Negative Negative [facility] Appearance, Urine Dipstick Clear Clear [facility] Specific [place] Urine Automated 1.016 1.002 - 1.030 [facility] Color, Urine Dipstick Yellow Yellow [facility] Reflex to Culture No [facility] Urine specimen obtained via indwelling urinary catheter (specimen) 11/13/2018 11:39 PM EDT 11/13/2018 11:58 PM EDT Narrative Resulting Agency Comment Spec In Lab Vivian Valdez Jr., MD URINE ORDERABLES Performing Organization Address [facility] Co de Phone Number [facility] [place] [address] * EKG 12 Lead (11/13/2018 11:11 PM EDT) Ventricular rate 61 BPM MUSE SYSTEM Atrial Rate 61 BPM MUSE SYSTEM P-R Interval 140 ms MUSE SYSTEM QRS Duration 106 ms MUSE SYSTEM Q-T Interval 450 ms MUSE SYSTEM QTC Calculated (Bezet) 453 ms MUSE SYSTEM Calculated P [place] 3 degrees MUSE SYSTEM Calculated R [place] 61 degrees MUSE SYSTEM Calculated T [place] 70 degrees MUSE SYSTEM INTERPRETATION Normal sinus rhythm RSR' or QR pattern in V1 suggests right ventricular conduction delay Nonspecific ST abnormality Abnormal ECG No previous ECGs available Confirmed by MD Rick, Eran Levi ([id number]) on 11/14/2018 9:48:29 AM MUSE SYSTEM 11/13/2018 11:1 1 PM EDT 11/14/2018 9:48 AM EDT Vivian Valdez Jr., MD ECG ORDERABLES Performing Organization Address City/[facility] Co de Phone Number MUSE SYSTEM * Blood culture (11/13/2018 10:40 PM EDT) Blood Culture No growth at 5 days. [facility] Blood specimen (specimen) 11/13/2018 10:40 PM EDT 11/13/2018 11:20 PM EDT Comment:L AC Narrative Resulting Agency Comment Spec In Lab Vivian Valdez Jr., MD MICROBIOLOGY - B LOOD ORDERABLES [facility] [place] [address] * (ABNORMAL) BLOOD GAS 2 ARTERIAL (11/13/2018 10:21 PM EDT) pH, Arterial 7.22(Criti nanette) 7.35 - 7.45 [facility] Comment:Noted by panel instrument repairer. PCO2, Arterial 53(H) 35 - 45 mmHg [facility] PO2, Arterial 98 85 - 104 mmHg [facility] Bicarbonate, Arterial 21.0 20.0 - 26.0 mmol/L [facility] Base Excess, Arterial -6.7(L) -3.0 - 3.0 mmol/L [facility] Hgb Blood Gas 11.1(L) 11.7 - 15.5 gm/dL [facility] Oxyhemoglobin, Arterial 95.5 94.0 - 97.0 % [facility] Carboxyhemoglob in, Arterial 0.4 % [facility] Comment: Nonsmokers: 0.5-1.5% COHB Smokers: Variable, but usually less than 10% Toxic: 20-30% COHB Lethal: Greater than 60% COHB Methemoglobin, Arterial 0.3 <=1.5 % [facility] Na Whole Blood 138 135 - 145 mmol/L [facility] K Whole Blood 4.8 3.5 - 5.0 mmol/L [facility] Comment: Please note: Patients with WBC >100,000 may have falsely elevated Potassium levels. Contact the Clinical Chemistry Laboratory if there are any questions. ICa Whole Blood 1.19 1.15 - 1.33 mmol/L [facility] Comment: Note: ??Total bilirubin higher than 20 mg/dL may lead to falsely low ionized calcium. CL Whole Blood 108(H) 98 - 107 mmol/L [facility] Gluc Whole Bld 198 65 - 199 mg/dL [facility] Comment:Diabetes: >=200 mg/d L plus symptoms. Lactate WB 1.4 0.5 - 2.2 mmol/L [facility] FIO2 Art 100 % [facility] PF Ratio Art 98 [facility] Blood specimen (specimen) 11/13/2018 10:21 PM EDT 11/13/2018 10:21 PM EDT Vivian Valdez Jr., MD POINT OF CARE TE ST ORDERABLES Performing Organization Address City/[facility]/ZIP Co de Phone Number [facility] [place] [address] * LDL Cholesterol, Direct (11/13/2018 10:20 PM EDT) LDL Cholesterol, Direct 73 mg/dL [facility] Comment: Lowest Risk: <100 mg/dL Lower Risk: 100-129 mg/dL Borderline High Risk: 130-159 mg/dL High Risk: 160-189 mg/dL Very High Risk: >tc=511 mg/dL Blood specimen (specimen) 11/13/2018 10:20 PM EDT 11/14/2018 2:44 AM EDT Narrative Resulting Agency Comment Spec In Lab Vivian Valdez Jr., MD CHEMISTRY ORDERA BLES Performing Organization Address [facility]/ZIP Co de Phone Number [facility] [place] [address] * HDL/Cholesterol Profile (11/13/2018 10:20 PM EDT) Cholesterol, Total 143 mg/dL [facility] Comment: Lower Risk: <200 mg/dL Average Risk: 200-239 mg/dL Higher Risk: >ck=281 mg/dL HDL Cholesterol 32 mg/dL [facility] Comment: Males: ?? Higher Risk: <40 mg/dL Females: ?? HIgher Risk: <50 mg/dL Cholesterol/HDL Ratio 4.5 ratio [facility] Chol/HDL Interpretation See Note [facility] Comment: Lipid management should be guided by a patient? s ASCVD risk, goals and preferences. ACC/AHA Guidelines recommend high intensity statin if clinical ASCVD or LDL greater than or equal to 190 mg/dL. http://[email or web address]-[email or web address] Measure LDL if Total Cholesterol minus HDL Cholesterol is greater than 220 mg/dL. Adults aged 40-75 with LDL 70-189 mg/dL should have their 10 year ASCVD risk estimated with the ACC/AHA ASCVD risk commercial roofing estimator http://tools.acc.org/ZOQAK-Cdph-Mhynusayr/ Statin should be discussed if risk greater than or equal to 7.5% in non-diabetics. With diabetes, moderate intensity statin is recommended if risk less than 7.5%, high intensity if risk greater than or equal to 7.5%. Annual lipid monitoring on statins is not necessary. Lifestyle modification is a critical component of ASCVD risk reduction. Blood specimen (specimen) 11/13/2018 10:20 PM EDT 11/14/2018 2:44 AM EDT Narrative Resulting Agency Comment Spec In Lab Vivian Valdez Jr., MD CHEMISTRY ORDERA BLES [facility] [place] [address] * (ABNORMAL) Hemoglobin A1c (11/13/2018 10:20 PM EDT) Hemoglobin A1c 6.2(H) 4.3 - 5.6 % [facility] Comment: Reference Range: 4.3 - 5.6% 5.7 - 6.4% - Increased Risk of Developing Diabetes Mellitus >= 6.5% - Consistent with diagnosis of Diabetes Mellitus In the absence of hyperglycemia (i.e. plasma glucose > 200 mg/dL) or classic symptoms of hyperglycemia a repeat measurement of HbA1c should be performed on a separate sample to confirm the diagnosis. Diagnosis and Classification of Diabetes Mellitus, Diabetes Care 2013; 36: Suppl. 1, A50-86 Estimated Average Glucose 131 mg/dL [facility] Comment: eAG equivalents for HbA1c percentages: HbA1c(%) ?eAG(mg/dL) 6.0 ?126 6.5 ?140 7.0 ?154 7.5 ?169 8.0 ?183 8.5 ?197 9.0 ?212 9.5 ?226 10.0 ? 240 Limitations: The eAG calculation has not been validated on women, individuals below 18 years old and above 70 years old, and individuals with hemoglobinopathies. Additional resources are available on the ADA website. Matt GOODWIN, Lety J, Roland R, et al. ??Translating the A1C assay into estimated average glucose values. ??Diabetes Care 2008:31(8):3448-8903. Blood specimen (specimen) 11/13/2018 10:20 PM EDT 11/14/2018 3:03 AM EDT Narrative Resulting Agency Comment Spec In Lab Vivian Valdez Jr., MD CHEMISTRY [facility] [place] [address] * (ABNORMAL) Differential, Automated (11/13/2018 10:20 PM EDT) Neutrophil % 85.4 % [facility] Neutrophil Absolute 13.88(H) 1.70 - 6.10 x10(3)/mc L [facility] Lymph % 8.1 % [facility] Lymphocytes Abs 1.3 0.9 - 3.2 x10(3)/mc L [facility] Monocyte % 5.5 % [facility] Monocyte Abs 0.9 0.3 - 0.9 x10(3)/[facility] Eos % 0.0 % [facility] Eosinophils Abs 0.0 0.0 - 0.4 x10(3)/[facility] Basophil % 0.2 % [facility] Baso Absolute 0.0 0.0 - 0.1 x10(3)/[facility] Immature Gran % 0.80 % [facility] Comment: Immature granulocytes(IG's)percentage and absolute count will include metamyelocytes, myelocytes, and promyelocytes. Blood smears from CBCs yielding IG's will be scanned manually for concordance. If this scan disagrees with the automated IG or if promyelocytes are noted, a manual differential will be performed. Immature Gran Absolute 0.13(H) 0.00 - 0.04 x10(3)/[facility] Blood specimen (specimen) 11/13/2018 10:20 PM EDT 11/13/2018 10:35 PM EDT Narrative Resulting Agency Comment Spec In Lab Natali Kingston MD HEMATOLOGY ORDERABL ES [facility] [place] [address] * (ABNORMAL) Hemogram (11/13/2018 10:20 PM EDT) White Blood Cell 16.2(H) 4.0 - 9.5 x10(3)/[facility] Red Blood Cell 3.65(L) 4.00 - 5.21 x10(6)/[facility] Hemoglobin 10.0(L) 11.7 - 15.5 gm/dL [facility] Hematocrit 32.4(L) 35.7 - 45.8 % [facility] Mean Cell Volume 88.8 82.6 - 94.4 fL [facility] Mean Cell Hemoglobin 27.4 27.1 - 32.0 pg [facility] Mean Cell Hemoglobin Concentration 30.9(L) 31.7 - 35.0 gm/dL [facility] Platelet 225 145 - 357 x10(3)/mc L [facility] RDW Standard Deviation 53.9(H) 37.0 - 46.0 fL [facility] RDW coefficient of variation 16.6(H) 11.5 - 14.1 % [facility] Mean Platelet Volume 11.6 7.6 - 12.9 fL [facility] NRBC% auto 0.0 % [facility] NRBC Absolute 0.000 0.000 - 0.000 x10(3)/mc L [facility] Blood specimen (specimen) 11/13/2018 10:20 PM EDT 11/13/2018 10:35 PM EDT Narrative Resulting Agency Comment Spec In Lab Natali Kingston MD HEMATOLOGY ORDERABL ES Performing Organization Address [facility] Co de Phone Number [facility] [place] [address] * CK (11/13/2018 10:20 PM EDT) Pathologist [facility] Creatine Kinase 159 0 - 160 unit/L [facility] Blood specimen (specimen) 11/13/2018 10:20 PM EDT 11/13/2018 10:35 PM EDT Narrative Resulting Agency Comment Spec In Lab Vivian Valdez Jr., MD CHEMISTRY ORDERA BLES Performing Organization Address [facility]/ZIP Co de Phone Number [facility] [place] [address] * Troponin (11/13/2018 10:20 PM EDT) [facility] Troponin-T <0.01 0.00 - 0.00 ng/mL [facility] Comment: The 99th percentile for Troponin T is less than 0.01 ng/mL, any detectable cTnT concentration using this assay should be considered elevated. According to the third universal definition of myocardial infarction the following criteria with a clinical presentation consistent with acute myocardial ischemia meets the diagnosis for a myocardial infarction (MD). Detection of a rise and/or fall of cTnT, with at least one value greater than the 99th percentile (> or = 0.01) and with at least one of the following ?? Symptoms of ischemia ?? New or presumed new significant [id number] wave (ST-T) changes or new left bundle branch block (LBBB) ?? Development of pathologic Q waves in the ECG ?? Imaging evidence of new loss of viable myocardium or new regional wall motion abnormality ?? Identification of an intracoronary thrombus by angiography or autopsy Samples for cTnT testing should be obtained serially upon first assessment and again 3 to 6 hours later. If the clinical suspicion is high and previous samples have been negative an additional sample may be indicated. Reference: Third [place] Definition of Myocardial Infarction. Journal of the [place] [employer] 2012;60:1581-98 Blood specimen (specimen) 11/13/2018 10:20 PM EDT 11/13/2018 10:35 PM EDT Narrative Resulting Agency Comment Spec In Lab Vivian Valdze Jr., MD CHEMISTRY ORDERA BLES Performing Organization Address [facility]/ZIP Co de Phone Number [facility] [place] [address] * (ABNORMAL) T4, free (11/13/2018 10:20 PM EDT) Free T4 0.87(L) 0.93 - 1.70 ng/dL [facility] Blood specimen (specimen) 11/13/2018 10:20 PM EDT 11/13/2018 10:35 PM EDT Narrative Resulting Agency Comment Spec In Lab Vivian Valdez Jr., MD CHEMISTRY ORDERA BLEDelisa Performing Organization Address City/[facility]/ZIP Co de Phone Number [facility] [place] [address] * (ABNORMAL) TSH (11/13/2018 10:20 PM EDT) Thyroid Stimulating Hormone 0.18(L) 0.27 - 4.20 mcIU/mL [facility] Blood specimen (specimen) 11/13/2018 10:20 PM EDT 11/13/2018 10:35 PM EDT Narrative Resulting Agency Comment Spec In Lab Vivian Valdez Jr., MD CHEMISTRY ORDERA KAYLEY Performing Organization Address [facility] Co de Phone Number [facility] [place] [address] * (ABNORMAL) pro-Brain Natriuretic Peptide (11/13/2018 10:20 PM EDT) NT-proBNP 2,920(H) <=125 pg/mL [facility] Blood specimen (specimen) 11/13/2018 10:20 PM EDT 11/13/2018 10:35 PM EDT Narrative Resulting Agency Comment Spec In Lab Vivian Valdez Jr., MD CHEMISTRY ORDERA KAYLEY Performing Organization Address [facility] Co de Phone Number [facility] [place] [address] * (ABNORMAL) CMP w/fasting Glucose (11/13/2018 10:20 PM EDT) Glucose Fasting 195(H) 65 - 99 mg/dL [facility] Comment: ?Fasting* Glucose Interpretive Criteria Normal ?65-99 mg/dL Impaired Fasting glucose ?100-125 mg/dL Consistent with Diabetes Mellitus ? >or= 126 mg/dL *Fasting is defined as no caloric intake for at least 8 hours In the absence of unequivocal hyperglycemia a plasma glucose value of >or= 126 mg/dL should be repeated on a subsequent day. Diagnosis and Classification of Diabetes Mellitus, Position Statement from the [place] [employer]. ??Diabetes Care, Volume 33, Supplement 1, Aug 2009 Blood Urea Nitrogen 20(H) 8 - 18 mg/dL [facility] Creatinine 1.33(H) 0.70 - 1.20 mg/dL [facility] Sodium 140 135 - 145 mmol/L [facility] Potassium 4.9 3.5 - 5.0 mmol/L [facility] Comment: Please note: ??Patients with WBC >100,000 may have falsely elevated Potassium levels. ??For accurate Potassium quantification in these patients send serum separator tube (gold top) for subsequent determinations. ??Contact the Clinical Chemistry Laboratory if there are any questions. Chloride 105 98 - 107 mmol/L [facility] Carbon Dioxide 22 22 - 31 mmol/L [facility] Anion Gap 13 5 - 15 mmol/L [facility] Calcium 8.6 8.5 - 10.5 mg/dL [facility] Protein, Total 6.2 6.1 - 8.0 gm/dL [facility] Albumin 3.1(L) 3.2 - 5.2 gm/dL [facility] Aspartate Aminotransferase 30 0 - 30 unit/L [facility] Alanine Aminotransferase 16 0 - 30 unit/L [facility] Alkaline Phosphatase 89 40 - 104 unit/L [facility] Bilirubin, Total 0.2 0.2 - 1.3 mg/dL [facility] Est Glomerular Filtration Rate 45(L) >=60 mL/min/1. 73 m?? [facility] Comment: The eGFR was calculated using the CKD-EPI equation. As with all creatinine based estimates of kidney function, eGFR values calculated with the CKD-EPI equation are not accurate in patients with acute kidney failure, extremes of body mass or the acutely ill. [email or web address] eGFR 52(L) >=60 mL/min/1. 73 m?? [facility] Comment: The eGFR was calculated using the CKD-EPI equation. As with all creatinine based estimates of kidney function, eGFR values calculated with the CKD-EPI equation are not accurate in patients with acute kidney failure, extremes of body mass or the acutely ill. [email or web address] Blood specimen (specimen) 11/13/2018 10:20 PM EDT 11/13/2018 10:35 PM EDT Narrative Resulting Agency Comment Spec In Lab Vivian Valdez Jr., MD CHEMISTRY ORDERA BLES Performing Organization Address [facility] Co de Phone Number [facility] [place] [address] * (ABNORMAL) Phosphorus (11/13/2018 10:20 PM EDT) Phosphorus 5.6(H) 2.5 - 4.5 mg/dL [facility] Blood specimen (specimen) 11/13/2018 10:20 PM EDT 11/13/2018 10:35 PM EDT Narrative Resulting Agency Comment Spec In Lab Vivian Valdez Jr., MD CHEMISTRY WALLYA BLEDelisa Performing Organization Address [facility] Co de Phone Number [facility] [place] [address] * Magnesium (11/13/2018 10:20 PM EDT) Magnesium 0.94 0.69 - 1.07 mmol/L [facility] Blood specimen (specimen) 11/13/2018 10:20 PM EDT 11/13/2018 10:35 PM EDT Narrative Resulting Agency Comment Spec In Lab Vivian Valdez Jr., MD CHEMISTRY ORDERA BLEDelisa Performing Organization Address [facility] Co de Phone Number [facility] [place] [address] * (ABNORMAL) APTT (11/13/2018 10:20 PM EDT) Partial Thromboplastin Time 24(L) 25 - 37 sec [facility] Comment: The PTT is NOT appropriate for heparin monitoring. Use the Anti-Xa level for heparin monitoring (HEP UFH) or LMWH monitoring (HEP LMW). A PTT less than 37 seconds generally indicates adequate hemostasis. Blood specimen (specimen) 11/13/2018 10:20 PM EDT 11/13/2018 10:35 PM EDT Narrative Resulting Agency Comment Spec In Lab Vivian Valdez Jr., MD HEMATOLOGY ORDER DAMARIS Performing Organization Address [facility] de Phone Number [facility] [place] [address] * Prothrombin Time (11/13/2018 10:20 PM EDT) Prothrombin Time 12.5 9.4 - 12.5 sec [facility] International Normalization Ratio 1.1 [facility] Comment: An INR <2.0 indicates [...] be appropriate depending on clinical circumstances. Blood specimen (specimen) 11/13/2018 10:20 PM EDT 11/13/2018 10:35 PM EDT Narrative Resulting Agency Comment Spec In Lab Vivian Valdez Jr., MD HEMATOLOGY ORDER DAMARIS Performing Organization Address [facility] de Phone Number [facility] [place] [address] * XR Abdomen 1 view (Generic) (11/13/2018 10:19 PM EDT) Anatomical Region Laterality Modality Abdomen N/A Digital Radiogra phy Impressions 11/13/2018 10:55 PM EDT FINDINGS/IMPRESSION: OG tube tip projects over the fundus, although the side port projects over the apparently region of the gastric cardia; consider slight advancement. Thank you for letting us participate in the care of this patient. For questions regarding this report, please contact the number below. ? Narrative 11/13/2018 10:55 PM EDT EXAMINATION: XR ABDOMEN 1 VIEW (GENERIC) CLINICAL HISTORY: OG tube placement TECHNIQUE: Targeted single supine portable frontal radiograph centered over the upper abdomen dedicated for evaluation of transesophageal enteric tube positioning, and otherwise nondiagnostic. COMPARISON: None Procedure Note Delano Barajas MD - 11/13/2018 EXAMINATION: XR ABDOMEN 1 VIEW (GENERIC) CLINICAL HISTORY: OG tube placement TECHNIQUE: Targeted single supine portable frontal radiograph centeredover the upper abdomen dedicated for evaluation of transesophageal enteric tube positioning, and otherwise nondiagnostic. COMPARISON: None IMPRESSION FINDINGS/IMPRESSION: OG tube tip projects over the fundus, although the side port projects overthe apparently region of the gastric cardia; consider slight advancement. Thank you for letting us participate in the care of this patient. Forquestions regarding this report, please contact the number below. Vivian Valdez Jr., MD IMG DX ORDERABLE S * (ABNORMAL) Respiratory Panel PCR (11/13/2018 10:15 PM EDT) Respiratory Panel Source [employer] [facility] Respiratory Panel PCR Positive(A) Negative [facility] Comment: Respiratory Panels are performed on the [employer], using multiplexed PCR nucleic acid detection. ??Negative results do not preclude respiratory infection and should not be used as the sole basis for diagnosis, treatment or other management decisions. Adenovirus Not Detected Not Detected [facility] Coronavirus HKU1 Not Detected Not Detected [facility] Coronavirus NL63 Not Detected Not Detected [facility] Coronavirus 229E Not Detected Not Detected [facility] Coronavirus OC43 Not Detected Not Detected [facility] Human Metapneumovirus Not Detected Not Detected [facility] Human Rhinovirus/Enterov irus Not Detected Not Detected [facility] Influenza A Not Detected Not Detected [facility] Influenza A H1 Not Detected Not Detected [facility] Influenza A H1-2009 Detected(A) Not Detected [facility] Influenza A H3 Not Detected Not Detected [facility] Influenza B Not Detected Not Detected [facility] Parainfluenza 1 Not Detected Not Detected [facility] Parainfluenza 2 Not Detected Not Detected [facility] Parainfluenza 3 Not Detected Not Detected [facility] Parainfluenza 4 Not Detected Not Detected [facility] Respiratory Syncytial Virus Not Detected Not Detected [facility] Chlamydophila pneumoniae Not Detected Not Detected [facility] Mycoplasma pneumoniae Not Detected Not Detected [facility] Nasopharyngeal swab (specimen) 11/13/2018 10:15 PM EDT 11/13/2018 11:06 PM EDT Narrative Resulting Agency Comment Spec In Lab Vivian Valdez Jr., MD MICROBIOLOGY - G [facility] ORDERABLES Performing Organization Address City/State/[facility] Co de Phone Number [facility] [place] [address] * Lower Respiratory Culture Bronchial Alveolar Lavage (11/13/2018 10:15 PM EDT) Lower Respiratory Culture No growth [facility] Gram Stain Few Neutrophils seen No squamous epithelial cells Rare mixed bacterial morphotypes suggestive of normal upper respiratory caryn [facility] Bronchoalveolar lavage fluid specimen (specimen) 11/13/2018 10:15 PM EDT 11/14/2018 7:52 AM EDT Narrative Resulting Agency Comment Spec In Lab Vivian Valdez Jr., MD MICROBIOLOGY - G ENERAL ORDERABLES [facility] [address] * XR Chest PA or AP 1 view (11/13/2018 10:05 PM EDT) Anatomical Region Laterality Modality Chest N/A Digital Radiogra phy Impressions 11/13/2018 10:45 PM EDT Diffuse airspace and interstitial opacities; differential considerations include pneumonia (bacterial, atypical/mycoplasma, viral, pneumocystic), pulmonary edema, ARDS, pulmonary alveolar proteinosis, pulmonary hemorrhage, acute interstitial pneumonia, hypersensitivity or drug induced pneumonitis, among other possible etiologies. Thank you for letting us participate in the care of this patient. For questions regarding this report, please contact the number below. ? Narrative 11/13/2018 10:45 PM EDT EXAMINATION: XR CHEST PA OR AP 1 VIEW CLINICAL HISTORY: acute hypoxemic and hypercarbic respiratory failure, concern for infectious process TECHNIQUE: 1 view of the chest COMPARISON: November 13, 2018 FINDINGS: Redemonstrated diffuse airspace and interstitial opacities. Pulmonary vascular indistinctness. No pneumothorax or pleural effusion seen. Cardiomediastinal contours without significant change appreciated, including prominent cardiopericardial silhouette. LEFT central catheter tip projects over the mid SVC. Endotracheal tube tip 4.4 cm above the nicolasa. Tube along the expected course of the esophagus courses off the [id number] inferiorly over the abdomen. Procedure Note Delano Barajas MD - 11/13/2018 EXAMINATION: XR CHEST PA OR AP 1 VIEW CLINICAL HISTORY: acute hypoxemic and hypercarbic respiratory failure,concern for infectious process TECHNIQUE: 1 view of the chest COMPARISON: November 13, 2018 FINDINGS: Redemonstrated diffuse airspace and interstitial opacities. Pulmonaryvascular indistinctness. No pneumothorax or pleural effusion seen.Cardiomediastinal contours without significant change appreciated, including prominent cardiopericardial silhouette. LEFT central catheter tip projects over themid SVC. Endotracheal tube tip 4.4 cm above the nicolasa. Tube along theexpected course of the esophagus courses off the [id number] inferiorly overthe abdomen. IMPRESSION Diffuse airspace and interstitial opacities; differential considerationsinclude pneumonia (bacterial, atypical/mycoplasma, viral, pneumocystic),pulmonary edema, ARDS, pulmonary alveolar proteinosis, pulmonary hemorrhage, acute interstitial pneumonia, hypersensitivity or drug induced pneumonitis,among other possible etiologies. Thank you for letting us participate in the care of this patient. Forquestions regarding this report, please contact the number below. Vivian Valdez Jr., MD IMG DX ORDERABLE S documented in this encounter Visit Diagnoses Diagnosis Hypertension, unspecified type Screening for cardiovascular condition Screening for other and unspecified cardiovascular conditions ARDS (adult respiratory distress syndrome) Other pulmonary insufficiency, not elsewhere classified, following trauma and surgery ANGE (acute kidney injury) Acute kidney failure, unspecified Influenza due to identified novel H1N1 influenza virus with identified novel H1N1 influenza pneumonia Influenza due to identified 2009 H1N1 influenza virus with pneumonia Dyspnea Other dyspnea and respiratory abnormality Viral sepsis Viremia, unspecified COPD, moderate Chronic airway obstruction, not elsewhere classified Depression Depressive disorder, not elsewhere classified Anxiety Anxiety state, unspecified Cigarette smoker Tobacco use disorder Influenza vaccination contraindicated Vaccination not carried out for other reason Hypertension Unspecified essential hypertension Acquired hypothyroidism Unspecified hypothyroidism documented in this encounter Admitting Diagnoses Diagnosis COPD exacerbation Obstructive chronic bronchitis with exacerbation documented in this encounter Administered Medications Inactive Administered Medications - up to 3 most recent administrations Medication Order MAR Action Action Date Dose Rate Site acetaminophen (TYLENOL) tablet 1,000 mg 1,000 mg, Oral, EVERY 6 HOURS SCHEDULED, First dose (after last modification) on Jessie 11/20/18 at 1700, Until Discontinued, Maximum dose of acetaminophen is 4000 mg from all sources in 24 hours., Routine Given 11/25/2018 11:52 AM EDT 1,000 mg Given 11/25/2018 6:20 AM EDT 1,000 mg Given 11/25/2018 12:05 AM EDT 1,000 mg acetaminophen (TYLENOL) tablet 650 mg 650 mg, Oral, EVERY 6 HOURS PRN, Starting on 11/17/18 at 1035, Until Jessie 11/20/18 at 1121, Pain, Maximum dose of acetaminophen is 4000 mg from all sources in 24 hours., Routine Given 11/20/2018 10:50 AM EDT 650 mg Given 11/19/2018 8:21 PM EDT 650 mg Given 11/18/2018 2:04 AM EDT 650 mg bisacodyl (DULCOLAX) suppository 10 mg 10 mg, Rectal, DAILY PRN, Starting on 11/15/18 at 0723, Until 11/25/18 at 1526, Constipation, Routine Given 11/17/2018 8:15 AM EDT 10 mg chlorhexidine (PERIDEX) 0.12 % oral solution 15 mL 15 mL, Oral, 2 TIMES DAILY, First dose on Sat11/14/18 at 1030, Until Discontinued, Routine Given 11/19/2018 8:08 AM E DT 15 mLs Given 11/18/2018 9:39 PM EDT 15 mLs Given 11/18/2018 8:11 AM EDT 15 mLs cisatracurium (NIMBEX) 200 mg in sodium chloride 0.9% 220 mL infusion 2 mcg/kg/min ? 82.4 kg (10.8768 mL/hr, rounded to 10.9 mL/hr), Intravenous, CONTINUOUS, Starting on Jessie 11/13/18 at 2345, Until Sat11/14/18 at 1021, Titrate to vent synchrony, STAT Rate/Dose Verify 11/14/2018 8:00 AM EDT 2 mcg/kg/min 10.9 mL/hr New Bag 11/14/2018 12:02 AM EDT 2 mcg/kg/min 10.9 mL/hr cisatracurium (NIMBEX) 200 mg in sodium chloride 0.9% 220 mL infusion 0-5 mcg/kg/min ? 82.4 kg (0-27.192 mL/hr, rounded to 0-27.2 mL/hr), Intravenous, CONTINUOUS, Starting on Sat11/14/18 at 1130, Until 11/15/18 at 2109, Please ensure that patient is sedated to a RASS of -5 with continuous analgesia and sedative agents prior to beginning paralytics. After bolus, Start at 0.5 mcg/kg/min and adjust by 1 mcg/kg/min every 15 minutes to a Train of Four 0 out of 4 or ventilator synchrony, maximum rate of 5 mcg/kg/min., Routine, Is patient sedated to a RASS of -5? Yes, Please select indication: ARDS, Please indicate the name of the attending or fellow authorizing this medication: Dr. Emiliano Aleman 11/14/2018 7:47 PM EDT 2 mcg/kg/min 10.9 mL/hr Rate/Dose Verify 11/14/2018 6:00 PM EDT 2 mcg/kg/min 10.9 mL/hr Rate/Dose Verify 11/14/2018 4:00 PM EDT 2 mcg/kg/min 10.9 mL/hr citalopram (CeleXA) tablet 40 mg 40 mg, Oral, DAILY, First dose on Jessie 11/20/18 at 1145, Until Discontinued, Routine Given 11/25/2018 8:35 AM EDT 40 mg Given 11/24/2018 8:56 AM EDT 40 mg Given 11/23/2018 8:33 AM EDT 40 mg clotrimazole (MYCELEX) sachin 10 mg 10 mg, Oral, 5 TIMES DAILY, First dose on Sat11/23/18 at 1400, Until Discontinued, Routine Given 11/25/2018 11:5 2 AM EDT 10 mg Given 11/25/2018 6:20 AM EDT 10 mg Given 11/24/2018 10:18 PM EDT 10 mg cyanocobalamin (vitamin B-12) tablet 1,000 mcg 1,000 mcg, Oral, DAILY, First dose on 11/15/18 at 1830, Until Discontinued, Routine Given 11/25/2018 8:35 AM EDT 1,000 mcg Given 11/24/2018 8:56 AM EDT 1,000 mcg Given 11/23/2018 8:32 AM EDT 1,000 mcg dexmedetomidine (PRECEDEX) 4 mcg/mL (standard Adult & Pedi greater than 20kg) infusion (premix) 0-1.7 mcg/kg/hr ? 85.3 kg (0-36.2525 mL/hr, rounded to 0-36.3 mL/hr), Intravenous, CONTINUOUS, Starting on Sat11/18/18 at 1430, Until Jessie 11/20/18 at 0939, Titrate to sedation level of RASS Goal (-)1 to 0 . Start at 0.4 mcg/kg/hr, adjust by 0.4 mcg/kg/hr every 15 minutes. Once stable, reassess patient every 30 minutes. Rate not to exceed 1.7 mcg/kg/hr. Change rate only after assessing and documenting RASS. Reassess sedation scores within 30 minutes after every rate change. If under sedated, increase rate by 0.4 mcg/kg/hr. If over sedated, hold sedative until target RASS (-)1 to 0 achieved and then restart at 50% of previous rate. Call housekeeping room inspector if goal not achieved at maximum rate. If SAT is ordered and if patient meets criteria for Spontaneous Awakening Trial, titrate per protocol., Routine Rate/Dose Change 11/19/2018 12:50 PM EDT 0.6 mcg/kg/hr 12.8 mL/hr New Bag 11/19/2018 11:20 AM EDT 1 mcg/kg/hr 21.3 mL/hr Rate/Dose Change 11/19/2018 9:14 AM EDT 1.4 mcg/kg/hr 29.9 mL/hr dextrose 50% intravenous solution 25-50 mL 25-50 mL (12.5-25 g), Intravenous, EVERY 1 HOUR PRN, Starting on Sat11/14/18 at 1135, Until Sat11/25/18 at 1526, Low blood sugar, For BG 50-70 mg/dL: Oral treatment preferred:?? If able to drink, give 120 mL Juice or Regular (not diet) soda OR If NPO, give 15 gram glucose 40% oral gel massaged into buccal mucosa OR if unconscious or uncooperative, give 12.5 gram (25 mL) Dextrose 50% IV OR, if no IV access, give 1 mg Glucagon IM. For BG less than 50 mg/dL: Oral treatment preferred:?? If able to drink, give 240 mL Juice or Regular (not diet) soda OR If NPO, give 30 gram glucose 40% oral gel massaged in buccal mucosa OR if unconscious or uncooperative, give 25 gram (50 mL) Dextrose 50% IV OR, if no IV access, give 1 mg Glucagon IM. Recheck BG in 30 minutes. May repeat juice, gel, dextrose or glucagon once per episode. To avoid extravasation, push Dextrose 50% SLOWLY (3 mL over 1 minute) in a patent, running IV, preferably a central line. For persistent hypoglycemia, consider longer-acting treatment for the duration of the active insulin., Routine diphenoxylate-atropine (LOMOTIL) 2.5-0.025 mg per tablet 1 tablet 1 tablet, Oral, 4 TIMES DAILY, First dose on Sat11/20/18 at 1300, Until Discontinued, Do not exceed 8 tablets/ 24 hours, Routine Given 11/21/2018 8:35 P M EDT 1 tablet Given 11/21/2018 5:56 PM EDT 1 tablet Given 11/21/2018 12:13 PM EDT 1 tablet diphenoxylate-atropine (LOMOTIL) 2.5-0.025 mg per tablet 1 tablet 1 tablet, Oral, 4 TIMES DAILY PRN, Starting on Sat11/23/18 at 1103, Until Sat11/25/18 at 1526, Diarrhea, Do not exceed 8 tablets/ 24 hours, Routine Given 11/24/2018 4:37 AM EDT 1 tablet Given 11/23/2018 12:08 PM EDT 1 tablet enoxaparin (LOVENOX) injection 40 mg 40 mg, Subcutaneous, NIGHTLY, First dose on Sat11/20/18 at 2100, Until Discontinued, Routine Given 11/24/2018 8:08 PM EDT 40 mg Given 11/22/2018 8:06 PM EDT 40 mg Given 11/21/2018 8:35 PM EDT 40 mg famotidine (PEPCID) injection 20 mg 20 mg, Intravenous, DAILY, First dose on Sat11/14/18 at 0900, Until Discontinued Given 11/14/2018 9:07 AM EDT 20 mg fentaNYL 50 mcg/mL infusion 0-300 mcg/hr (0-6 mL/hr), Intravenous, CONTINUOUS, Starting on Sat11/14/18 at 0015, Until Sat11/14/18 at 1012, Pain Scale Goal Less than or equal to 3 or to patient verbalized goal. Initial Infusion rate: 50 mcg/hour; Adjust hourly rate by 50% AND bolus 50% of new hourly rate every 15 minutes to achieve goal. Rate not to exceed 200 mcg/hr. Pain assessment every 15 minutes initially and reassess pain 15 minutes after each bolus given. Pain assessment MUST be documented prior to rate change. Rate/Dose Verify 11/14/2018 8:33 AM EDT 300 mcg/hr 6 mL/hr Rate/Dose Verify 11/14/2018 8:00 AM EDT 300 mcg/hr 6 mL/hr New Bag 11/14/2018 5:17 AM EDT 300 mcg/hr 6 mL/hr fentaNYL 50 mcg/mL infusion 0-100 mcg/hr (0-2 mL/hr), Intravenous, CONTINUOUS, Starting on Sat11/14/18 at 1030, Until 11/15/18 at 0848, Pain Scale Goal Less than or equal to 3 or to patient verbalized goal. Initial Infusion rate: 50 mcg/hour; Adjust hourly rate by 50% AND bolus 50% of new hourly rate every 15 minutes to achieve goal. Rate not to exceed 200 mcg/hr. Pain assessment every 15 minutes initially and reassess pain 15 minutes after each bolus given. Pain assessment MUST be documented prior to rate change. Rate/Dose Verify 11/15/2018 6:00 AM EDT 100 mcg/hr 2 mL/hr New Bag 11/15/2018 4:29 AM EDT 100 mcg/hr 2 mL/hr Rate/Dose Verify 11/15/2018 4:00 AM EDT 100 mcg/hr 2 mL/hr fentaNYL 50 mcg/mL infusion 0-200 mcg/hr (0-4 mL/hr), Intravenous, CONTINUOUS, Starting on 11/15/18 at 0915, Until 11/17/18 at 1038, Pain Scale Goal Less than or equal to 3 or to patient verbalized goal. Initial Infusion rate: 50 mcg/hour; Adjust hourly rate by 50% AND bolus 50% of new hourly rate every 15 minutes to achieve goal. Rate not to exceed 200 mcg/hr. Pain assessment every 15 minutes initially and reassess pain 15 minutes after each bolus given. Pain assessment MUST be documented prior to rate change. New Bag 11/17/2018 9:32 AM EDT 200 mcg/ hr 4 mL/hr Rate/Dose Verify 11/17/2018 6:00 AM EDT 200 mcg/hr 4 mL/hr Rate/Dose Verify 11/17/2018 4:00 AM EDT 200 mcg/hr 4 mL/hr fentaNYL 50 mcg/mL infusion 0-300 mcg/hr (0-6 mL/hr), Intravenous, CONTINUOUS, Starting on 11/17/18 at 1100, Until Sat11/19/18 at 1003, Pain Scale Goal Less than or equal to 3 or to patient verbalized goal. Initial Infusion rate: 50 mcg/hour; Adjust hourly rate by 50% AND bolus 50% of new hourly rate every 15 minutes to achieve goal. Rate not to exceed 200 mcg/hr. Pain assessment every 15 minutes initially and reassess pain 15 minutes after each bolus given. Pain assessment MUST be documented prior to rate change. Rate/Dose Verify 11/19/2018 8:00 AM EDT 200 mcg/hr 4 mL/hr Rate/Dose Verify 11/19/2018 6:00 AM EDT 200 mcg/hr 4 mL/hr Rate/Dose Verify 11/19/2018 4:00 AM EDT 200 mcg/hr 4 mL/hr fentaNYL bolus from bag 25-100 mcg 25-100 mcg, Intravenous, EVERY 15 MIN PRN, Starting on Jessie 11/13/18 at 2358, Until Sat11/14/18 at 1012, Pain, Refer to infusion order for Bolus instructions. Reassess pain 15 minutes after bolus given., Routine Bolus from Bag 11/13/2018 11:00 PM EDT 100 mcg fentaNYL bolus from bag 25-100 mcg 25-100 mcg, Intravenous, EVERY 15 MIN PRN, Starting on 11/15/18 at 0846, Until Sat11/17/18 at 1038, Pain, Refer to infusion order for Bolus instructions. Reassess pain 15 minutes after bolus given., Routine Bolus from Bag 11/17/2018 5:33 AM EDT 100 mcg Bolus from Bag 11/17/2018 5:11 AM EDT 100 mcg Bolus from Bag 11/17/2018 4:56 AM EDT 100 mcg fentaNYL bolus from bag 25-100 mcg 25-100 mcg, Intravenous, EVERY 15 MIN PRN, Starting on Sat11/17/18 at 1038, Until Sat11/19/18 at 1003, Pain, Refer to infusion order for Bolus instructions. Reassess pain 15 minutes after bolus given., Routine Bolus from Bag 11/19/2018 6:08 AM EDT 100 mcg Bolus from Bag 11/19/2018 4:50 AM EDT 100 mcg Bolus from Bag 11/19/2018 4:00 AM EDT 100 mcg folic acid (FOLVITE) tablet 1,000 mcg 1,000 mcg (1 mg), Oral, DAILY, First dose on 11/15/18 at 1445, Until Discontinued, Routine Given 11/25/2018 8:35 AM EDT 1,000 mcg Given 11/24/2018 8:56 AM EDT 1,000 mcg Given 11/23/2018 8:32 AM EDT 1,000 mcg free water bolus 200 mL 200 mL, Per NG tube, 3 TIMES DAILY, 3 doses, First dose on Sat11/16/18 at 0900, Last dose on Sat11/16/18 at 2100, Routine Given 11/16/2018 8:16 PM EDT 200 mLs Given 11/16/2018 3:00 PM EDT 200 mLs Given 11/16/2018 9:00 AM EDT 200 mLs free water bolus 300 mL 300 mL, Per NG tube, 4 TIMES DAILY, First dose on Sat11/17/18 at 1300, Until Discontinued, Routine Given 11/17/2018 8:24 PM EDT 300 mLs Given 11/17/2018 5:00 PM EDT 300 mLs Given 11/17/2018 1:00 PM EDT 300 mLs free water bolus 300 mL 300 mL, Per NG tube, 3 TIMES DAILY, First dose on Sat11/18/18 at 1500, Until Discontinued, Routine Given 11/18/2018 9:39 PM EDT 300 mLs Given 11/18/2018 3:00 PM EDT 300 mLs furosemide (LASIX) injection 40 mg 40 mg, Intravenous, ONCE, 1 dose, On Jessie 11/13/18 at 2230 Given 11/13/2018 11:22 PM EDT 40 mg furosemide (LASIX) injection 40 mg 40 mg, Intravenous, ONCE, 1 dose, On Sat11/14/18 at 1045 Given 11/14/2018 11:08 AM EDT 40 mg furosemide (LASIX) injection 40 mg 40 mg, Intravenous, ONCE, 1 dose, On Sat11/18/18 at 1300, Routine Given 11/18/2018 1:06 PM EDT 40 mg gabapentin (NEURONTIN) capsule 300 mg 300 mg, Oral, 3 TIMES DAILY, First dose on Jessie 11/20/18 at 2100, Until Discontinued, Routine Given 11/25/2018 8:35 AM EDT 300 mg Given 11/24/2018 8:08 PM EDT 300 mg Given 11/24/2018 2:37 PM EDT 300 mg glucagon (human recombinant) injection SolR 1 mg 1 mg, Intramuscular, EVERY 1 HOUR PRN, Starting on Sat11/14/18 at 1135, Until Sat11/25/18 at 1526, Low blood sugar, For BG 50-70 mg/dL: Oral treatment preferred:?? If able to drink, give 120 mL Juice or Regular (not diet) soda OR If NPO, give 15 gram glucose 40% oral gel massaged into buccal mucosa OR if unconscious or uncooperative, give 12.5 gram (25 mL) Dextrose 50% IV OR, if no IV access, give 1 mg Glucagon IM. For BG less than 50 mg/dL: Oral treatment preferred:?? If able to drink, give 240 mL Juice or Regular (not diet) soda OR If NPO, give 30 gram glucose 40% oral gel massaged in buccal mucosa OR if unconscious or uncooperative, give 25 gram (50 mL) Dextrose 50% IV OR, if no IV access, give 1 mg Glucagon IM. Recheck BG in 30 minutes. May repeat juice, gel, dextrose or glucagon once per episode. To avoid extravasation, push Dextrose 50% SLOWLY (3 mL over 1 minute) in a patent, running IV, preferably a central line. For persistent hypoglycemia, consider longer-acting treatment for the duration of the active insulin., Routine glucose (GLUTOSE) 40% oral gel 15-30 g, Buccal, EVERY 30 MIN PRN, Starting on Sat11/14/18 at 1135, Until Sat11/25/18 at 1526, Low blood sugar, For BG 50-70 mg/dL: Oral treatment preferred:?? If able to drink, give 120 mL Juice or Regular (not diet) soda OR If NPO, give 15 gram glucose 40% oral gel massaged into buccal mucosa OR if unconscious or uncooperative, give 12.5 gram (25 mL) Dextrose 50% IV OR, if no IV access, give 1 mg Glucagon IM. For BG less than 50 mg/dL: Oral treatment preferred:?? If able to drink, give 240 mL Juice or Regular (not diet) soda OR If NPO, give 30 gram glucose 40% oral gel massaged in buccal mucosa OR if unconscious or uncooperative, give 25 gram (50 mL) Dextrose 50% IV OR, if no IV access, give 1 mg Glucagon IM. Recheck BG in 30 minutes. May repeat juice, gel, dextrose or glucagon once per episode. To avoid extravasation, push Dextrose 50% SLOWLY (3 mL over 1 minute) in a patent, running IV, preferably a central line. For persistent hypoglycemia, consider longer-acting treatment for the duration of the active insulin. 1 tube contains 15 grams of glucose (net weight of tube = 37.5 grams., Routine haloperidol lactate (HALDOL) 5 mg/mL injection 1 dose, Starting on Sat11/18/18 at 1236, Until Sat11/18/18 at 1240, Satya Pires.: cabinet override haloperidol lactate (HALDOL) injection 2.5-5 mg 2.5-5 mg, Intravenous, EVERY 6 HOURS PRN, Starting on Sat11/19/18 at 0958, Until Jessie 11/20/18 at 1119, Agitation, give 2.5mg, if no improvement after 10 minutes give another 2.5, If medication ordered subcutaneously, do not administer more than 2 mL as a single injection., Routine Given 11/19/2018 10:12 PM EDT 2.5 mg Given 11/19/2018 9:37 PM EDT 2.5 mg Given 11/19/2018 3:03 PM EDT 2.5 mg haloperidol lactate (HALDOL) injection 5 mg 5 mg, Intravenous, ONCE, 1 dose, On Sat11/18/18 at 1300, If medication ordered subcutaneously, do not administer more than 2 mL as a single injection., Routine Given 11/18/2018 12:40 PM EDT 5 mg haloperidol lactate (HALDOL) injection 5 mg 5 mg, Intravenous, ONCE, 1 dose, On Sat11/18/18 at 1745, If medication ordered subcutaneously, do not administer more than 2 mL as a single injection., Routine Given 11/18/2018 5:52 PM EDT 5 mg heparin (Porcine) subcutaneous injection 5,000 Units 5,000 Units, Subcutaneous, EVERY 8 HOURS SCHEDULED, First dose on Sat11/13/18 at 2215, Until Discontinued, Routine Given 11/20/2018 6:01 AM EDT 5,000 Units Right Lower Quadrant Given 11/19/2018 10:00 PM EDT 5,000 Units Left Lower Quadrant Given 11/19/2018 1:18 PM EDT 5,000 Units insulin lispro (HumaLOG) VIAL injection 1-4 Units 1-4 Units, Subcutaneous, EVERY 4 HOURS SCHEDULED, First dose on Sat11/14/18 at 1300, Until Discontinued, CORRECTION BOLUS Sensitive to insulin lean patient or total daily dose of all insulin needed to achieve glycemic control less than 30 units BG 140 - 160 Give 1 unit BG 161 - 200 Give 2 units BG 201 - 240 Give 3 units BG greater than 240, give 4 units and recheck BG in 2 hours. If less than 240 after two hours, give no insulin and resume prior schedule. If BG remains greater than 240, repeat 4 units (no more than three times) & call for new basal insulin orders. DO NOT hold if NPO, unless specifically told to do so., Routine Given 11/24/2018 8:08 PM EDT 1 Units Given 11/23/2018 11:19 PM EDT 2 Units Given 11/21/2018 8:35 PM EDT 3 Units ipratropium-albuterol (DUONEB) 0.5 mg-3 mg(2.5 mg base)/3 mL nebulizer solution 3 mL 3 mL, Nebulization, EVERY 4 HOURS SCHEDULED, First dose on Sat11/14/18 at 0000, Until Discontinued, Routine Given 11/25/2018 8:35 AM EDT 3 mLs Given 11/25/2018 4:20 AM EDT 3 mLs Given 11/25/2018 12:05 AM EDT 3 mLs ipratropium-albuterol (DUONEB) 0.5 mg-3 mg(2.5 mg base)/3 mL nebulizer solution 1 dose, Starting on Sat11/13/18 at 2319, Until Sat11/13/18 at 2330, TRINITY HUSSEIN (RT): cabinet override lactated Ringers 250 mL IV bolus at 250 mL/hr, Intravenous, ONCE, 1 dose, On Sat11/22/18 at 0415 New Bag 11/22/2018 4:14 AM EDT 250 mL/hr lactated Ringers 500 mL IV bolus at 500 mL/hr, Intravenous, ONCE, 1 dose, On Sat11/22/18 at 0545 New Bag 11/22/2018 5:35 AM EDT 500 mL/hr lactated Ringers 500 mL IV bolus at 166.7 mL/hr, Intravenous, ONCE, 1 dose, On Sat11/22/18 at 1130 New 11/22/2018 11:22 AM EDT 166.7 mL/hr lactated Ringers 500 mL IV bolus at 166.7 mL/hr, Intravenous, ONCE, 1 dose, On Sat11/22/18 at 1500 New 11/22/2018 2:43 PM EDT 166.7 mL/hr lidocaine (LIDODERM) 5 % patch 1 patch 1 patch, Transdermal, DAILY, First dose on Sat11/20/18 at 1130, Until Discontinued, Apply patch(es) for 12 hours, and then remove for 12 hours, Routine Patch Applied 11/25/2018 8:35 AM EDT 1 patch 08- Back Lower (Right) Patch Applied 11/24/2018 8:58 AM EDT 1 patch 07- Back Lower (Left) Patch Applied 11/23/2018 8:32 AM EDT 1 patch 07- Back Lower (Left) lidocaine (LIDODERM) patch REMOVAL Transdermal, NIGHTLY, First dose on Sat11/20/18 at 2100, Until Discontinued, Remove lidocaine 5 %(700 mg/patch) patch lisinopril (PRINIVIL;ZESTRIL) tablet 10 mg 10 mg, Oral, NIGHTLY, First dose on Sat11/19/18 at 2100, Until Discontinued, Routine Given 11/21/2018 8:36 PM EDT 10 mg Given 11/20/2018 9:25 PM EDT 10 mg Given 11/19/2018 8:57 PM EDT 10 mg magnesium sulfate 2 g in sterile water 50 mL 2 g, Intravenous, ONCE, 1 dose, On Sat11/18/18 at 2300, Administer over 120 Minutes New Bag 11/18/2018 11:36 PM EDT 2 g 25 mL/hr midazolam (PF) (VERSED) 1 mg/mL injection 1 dose, Starting on Sat11/13/18 at 2147, Until Sat11/14/18 at 0209, CHRIS, JOVON V.: cabinet override midazolam (PF) (VERSED) injection 2 mg 2 mg, Intravenous, ONCE, 1 dose, On Sat11/14/18 at 0015, Routine Given 11/14/2018 2:09 AM EDT 2 mg midazolam (VERSED) bolus from bag 7 mg 7 mg, Intravenous, EVERY 30 MIN PRN, Starting on Sat11/14/18 at 1012, Until 11/15/18 at 2100, Sedation, Refer to infusion order for Bolus instructions. Reassess within 30 minutes after bolus given., Routine Bolus from Bag 11/15/2018 4:15 PM EDT 7 mg Bolus from Bag 11/15/2018 12:44 PM EDT 2 mg Bolus from Bag 11/15/2018 5:38 AM EDT 2 mg midazolam 1 mg/mL (standard ADULT & Pedi greater than 20kg) infusion 0-8 mg/hr (0-8 mL/hr), Intravenous, CONTINUOUS, Starting on Sat11/14/18 at 1045, Until 11/15/18 at 2100, Initial bolus 1 mg midazolam with start of infusion. Titrate to sedation level of RASS Goal (-5). Start at 5 mg/hr, adjust by 1 mg/hr every 30 minutes. Rate not to exceed 8 mg/hr. , , Change rate only after documenting RASS. Reassess sedation scores after every rate change. Call housekeeping room inspector if goal not achieved at maximum rate., , If SAT is ordered and if patient meets criteria for Spontaneous Awakening Trial, titrate per protocol., Routine, Use of Midazolam for routine sedation is NOT recommended. Please indicate reason (Note - the need for low dose pressor, or slight increase in pressor is NOT a contraindication to propofoL or dexmedeTOMIDine): RASS target is -4, or -5 Rate/Dose Verify 11/15/2018 6:00 AM EDT 8 mg/hr 8 mL/hr Rate/Dose Verify 11/15/2018 4:00 AM EDT 8 mg/hr 8 mL/hr Rate/Dose Verify 11/15/2018 2:00 AM EDT 8 mg/hr 8 mL/hr midazolam 1 mg/mL (standard ADULT & Pedi greater than 20kg) infusion 1-5 mg/hr (1-5 mL/hr), Intravenous, CONTINUOUS, Starting on 11/15/18 at 2130, Until 11/17/18 at 1037, Initial bolus 1 mg midazolam with start of infusion. Titrate to sedation level of RASS Goal (-)1-0. Start at 1 mg/hr, adjust by 1 mg/hr every 30 minutes. Rate not to exceed 4 mg/hr. Change rate only after documenting RASS. Reassess sedation scores after every rate change. Call housekeeping room inspector if goal not achieved at maximum rate. If SAT is ordered and if patient meets criteria for Spontaneous Awakening Trial, titrate per protocol., Routine, Use of Midazolam for routine sedation is NOT recommended. Please indicate reason (Note - the need for low dose pressor, or slight increase in pressor is NOT a contraindication to propofoL or dexmedeTOMIDine): Severe hypotension on propofol/precedex Rate/Dose Verify 11/17/2018 6:00 AM EDT 3 mg/hr 3 mL/hr New Bag 11/17/2018 4:55 AM EDT 3 mg/hr 3 mL/hr Rate/Dose Verify 11/17/2018 4:00 AM EDT 3 mg/hr 3 mL/hr NORepinephrine (LEVOPHED) 4 mg/250 mL (16 mcg/mL) infusion 1 dose, Starting on Jessie 11/13/18 at 2210, Until Sat11/14/18 at 0209, Lizbet Conklin: cabinet override NORepinephrine 16 mcg/mL (standard ADULT and Pedi greater than 20 kg) infusion 0-100 mcg/min (0-375 mL/hr), Intravenous, CONTINUOUS, Starting on Jessie 11/13/18 at 2245, Until Sat11/18/18 at 1248, Titrate to keep MAP greater than 65 mmHg. Start at 2 mcg/min and increase by 2 mcg/min every 3 minutes until goal reached. Do not exceed 200 mcg/min., Routine Rate/Dose Verify 11/17/2018 6:00 PM EDT 1 mcg/min 3.8 mL/hr Rate/Dose Change 11/17/2018 5:00 PM EDT 1 mcg/min 3.8 mL/ hr Rate/Dose Verify 11/17/2018 4:15 PM EDT 2 mcg/min 7.5 mL/ hr oseltamivir (Tamiflu) (6 mg/mL) oral liquid 30 mg 30 mg, Oral, 2 TIMES DAILY, 5 doses, First dose on Sat11/14/18 at 0030, Last dose on Sat11/15/18 at 2100, Routine Given 11/14/2018 9:06 AM EDT 30 mg Given 11/14/2018 2:15 AM EDT 30 mg pantoprazole (PROTONIX) injection 40 mg 40 mg, Intravenous, DAILY, First dose on Sat11/14/18 at 1045, Until Discontinued Given 11/19/2018 8:08 AM EDT 40 mg Given 11/18/2018 8:22 AM EDT 40 mg Given 11/17/2018 8:14 AM EDT 40 mg pantoprazole (PROTONIX) tablet 40 mg 40 mg, Oral, DAILY, First dose on Sat11/20/18 at 0900, Until Discontinued, DO NOT CRUSH OR OPEN Given 11/25/2018 8:35 AM EDT 40 mg Given 11/24/2018 8:56 AM EDT 40 mg Given 11/23/2018 8:32 AM EDT 40 mg piperacillin-tazobactam (ZOSYN) 3.375 g vial attach to sodium chloride 0.9% 50 mL Mini-Bag Plus 3.375 g, Intravenous, EVERY 8 HOURS, 15 doses, First dose on Sat11/14/18 at 0015, Last dose on Sat11/18/18 at 1615, Administer over 4 Hours, Warning Vesicant/Irritant Medication Do not administer or Y-site with lactated ringers., Indication for (Active or Suspected): Pneumonia (Community) New Bag 11/18/2018 3:35 PM EDT 3.375 g 12.5 mL/hr New Bag 11/18/2018 8:19 AM EDT 3.375 g 12.5 mL/hr New Bag 11/18/2018 12:20 AM EDT 3.375 g 12.5 mL/hr polyethylene glycol (MIRALAX) packet 17 g 17 g, Oral, DAILY, First dose on Sat11/15/18 at 0900, Until Discontinued, Routine Given 11/18/2018 8:13 AM EDT 17 g Given 11/17/2018 8:15 AM EDT 17 g Given 11/16/2018 8:22 AM EDT 17 g polyethylene glycol (MIRALAX) packet 17 g 17 g, Oral, 2 TIMES DAILY, First dose (after last modification) on Sat11/18/18 at 2100, Until Discontinued, Routine Given 11/19/2018 8:08 AM EDT 17 g Given 11/18/2018 9:39 PM EDT 17 g potassium chloride (K-DUR/KLOR-CON) extended release tablet 40 mEq 40 mEq, Oral, ONCE, 1 dose, On Sat11/18/18 at 1300, 20 mEq tablet may be dissolved in water for administration, Routine Given 11/18/2018 12:59 PM EDT 40 mEq propofol (DIPRIVAN) 10 mg/mL infusion 1 dose, Starting on Sat11/13/18 at 2140, Until Sat11/13/18 at 2240, PENNY OMALLEY: cabinet override propofol (DIPRIVAN) infusion 0-50 mcg/kg/min, Intravenous, CONTINUOUS, Starting on Sat11/13/18 at 2215, Until Sat11/13/18 at 2316, Titrate to sedation level of RASS Goal (-)1 to 0 . Start at 20 mcg/kg/min, adjust rate by 10 mcg/kg/min every 3 minutes. Once stable, reassess patient every 30 minutes. Rate not to exceed 50 mcg/kg/minute. Change rate only after assessing and documenting RASS. Reassess sedation scores within 30 minutes after every rate change. If under sedated, increase rate by 10 mcg/kg/min. If over sedated, hold sedative until target RASS (-)1 to 0 achieved and then restart at 50% of previous rate. Call housekeeping room inspector if goal not achieved at maximum rate. If SAT is ordered and if patient meets criteria for Spontaneous Awakening Trial, titrate per protocol., Routine New Bag 11/13/2018 11:15 PM EDT 100 mcg/kg/min propofol (DIPRIVAN) infusion 0-50 mcg/kg/min ? 82.4 kg (0-24.72 mL/hr, rounded to 0-24.7 mL/hr), Intravenous, CONTINUOUS, Starting on Sat11/13/18 at 2345, Until Sat11/14/18 at 1400, Titrate to sedation level of RASS Goal (-)1 to 0 . Start at 20 mcg/kg/min, adjust rate by 10 mcg/kg/min every 3 minutes. Once stable, reassess patient every 30 minutes. Rate not to exceed 50 mcg/kg/minute. Change rate only after assessing and documenting RASS. Reassess sedation scores within 30 minutes after every rate change. If under sedated, increase rate by 10 mcg/kg/min. If over sedated, hold sedative until target RASS (-)1 to 0 achieved and then restart at 50% of previous rate. Call housekeeping room inspector if goal not achieved at maximum rate. If SAT is ordered and if patient meets criteria for Spontaneous Awakening Trial, titrate per protocol., Routine Rate/Dose Change 11/14/2018 11:28 AM EDT 25 mcg/kg/min 12.4 mL/hr New Bag 11/14/2018 9:43 AM EDT 50 mcg/kg/min 24.7 mL/hr Rate/Dose Verify 11/14/2018 8:34 AM EDT 50 mcg/kg/min 24.7 mL/hr propofol (DIPRIVAN) infusion 0-100 mcg/kg/min ? 83.2 kg (0-49.92 mL/hr, rounded to 0-49.9 mL/hr), Intravenous, CONTINUOUS, Starting on 11/15/18 at 2130, Until 11/17/18 at 1037, Titrate to sedation level of RASS Goal (-)1 to 0 . Start at 20 mcg/kg/min, adjust rate by 10 mcg/kg/min every 3 minutes. Once stable, reassess patient every 30 minutes. Rate not to exceed 50 mcg/kg/minute. Change rate only after assessing and documenting RASS. Reassess sedation scores within 30 minutes after every rate change. If under sedated, increase rate by 10 mcg/kg/min. If over sedated, hold sedative until target RASS (-)1 to 0 achieved and then restart at 50% of previous rate. Call housekeeping room inspector if goal not achieved at maximum rate. If SAT is ordered and if patient meets criteria for Spontaneous Awakening Trial, titrate per protocol., Routine New Bag 11/17/2018 6:58 AM EDT 40 mcg/kg/min 20 mL/hr Rate/Dose Change 11/17/2018 6:37 AM EDT 40 mcg/kg/min 20 m L/hr Rate/Dose Change 11/17/2018 5:56 AM EDT 50 mcg/kg/min 25 m L/hr propofol (DIPRIVAN) infusion 0-50 mcg/kg/min ? 83.9 kg (0-25.17 mL/hr, rounded to 0-25.2 mL/hr), Intravenous, CONTINUOUS, Starting on Sat11/17/18 at 1145, Until Sat11/19/18 at 1003, Titrate to sedation level of RASS Goal (-)1 to 0 . Start at 20 mcg/kg/min, adjust rate by 10 mcg/kg/min every 3 minutes. Once stable, reassess patient every 30 minutes. Rate not to exceed 50 mcg/kg/minute. Change rate only after assessing and documenting RASS. Reassess sedation scores within 30 minutes after every rate change. If under sedated, increase rate by 10 mcg/kg/min. If over sedated, hold sedative until target RASS (-)1 to 0 achieved and then restart at 50% of previous rate. Call housekeeping room inspector if goal not achieved at maximum rate. If SAT is ordered and if patient meets criteria for Spontaneous Awakening Trial, titrate per protocol., Routine Rate/Dose Change 11/18/2018 4:35 PM EDT 10 mcg/kg/min 5 mL/hr Rate/Dose Verify 11/18/2018 4:00 PM EDT 40 mcg/kg/min 20.1 mL/hr Rate/Dose Change 11/18/2018 3:35 PM EDT 30 mcg/kg/min 15.1 mL/hr QUEtiapine (SEROquel) tablet 50 mg 50 mg, Oral, NIGHTLY, First dose on Sat11/18/18 at 2100, Until Discontinued, Routine Given 11/19/2018 8:21 PM EDT 50 mg Given 11/18/2018 9:39 PM EDT 50 mg senna-docusate (PERICOLACE) 8.6-50 mg per tablet 1 tablet 1 tablet, Oral, 2 TIMES DAILY, First dose on Sat11/15/18 at 0900, Until Discontinued, Routine Given 11/24/2018 8:08 PM EDT 1 tablet Given 11/24/2018 8:56 AM EDT 1 tablet Given 11/23/2018 8:27 PM EDT 1 tablet sodium bicarbonate tablet 650 mg 650 mg, Per NG tube, EVERY 8 HOURS, First dose on Sat11/14/18 at 1100, Until Discontinued, Routine Given 11/17/2018 4:01 AM EDT 650 mg Given 11/16/2018 8:16 PM EDT 650 mg Given 11/16/2018 12:15 PM EDT 650 mg sodium chloride 0.9 % flush 5 mL 5 mL, Intravenous, 2 TIMES DAILY, First dose on [place] 11/20/18 at 2100, Until Discontinued, Routine Given 11/25/2018 8:38 AM EDT 5 mLs Given 11/24/2018 8:13 PM EDT 5 mLs Given 11/24/2018 9:00 AM EDT 5 mLs sodium chloride 0.9% infusion 10 mL/hr, Intravenous, CONTINUOUS, Starting on Sat11/14/18 at 1430, Until Sat11/25/18 at 1526 New Bag 11/19/2018 1:20 AM EDT 10 mL/hr 10 mL /hr Rate/Dose Verify 11/18/2018 6:00 PM EDT 10 mL/hr 10 mL/h r Rate/Dose Verify 11/18/2018 4:00 PM EDT 10 mL/hr 10 mL/h r traZODone (DESYREL) tablet 12.5 mg 12.5 mg, Oral, NIGHTLY, First dose (after last modification) on [place] 11/20/18 at 2100, Until Discontinued, Routine Given 11/24/2018 8:08 PM EDT 12.5 mg Given 11/23/2018 8:27 PM EDT 12.5 mg Given 11/22/2018 8:06 PM EDT 12.5 mg traZODone (DESYREL) tablet 50 mg 50 mg, Oral, ONCE, 1 dose, On [place] 11/20/18 at 0145, Routine Given 11/20/2018 1:28 AM EDT 50 mg tube feeding diet 960 mL, Per NG tube, CONTINUOUS, Starting on 11/15/18 at 1945, Until Sat11/17/18 at 1546, Administer flushes and check residuals per policy, Which tube feed product? Peptamen 1.5, Initial Rate: (mL/hr): 10, Advance by: (mL): 10, Advance every: Q4H, Goal final rate: (mL/hr): 40 Rate/Dose Verify 11/17/2018 2:00 PM EDT 960 mLs 40 mL/hr Rate/Dose Verify 11/17/2018 12:00 PM EDT 960 mLs 40 mL/ hr Rate/Dose Verify 11/17/2018 10:00 AM EDT 960 mLs 40 mL/ hr tube feeding diet 1,300 mL, Per NG tube, at 65 mL/hr, CONTINUOUS, Starting on Sat11/17/18 at 1615, Until Sat11/19/18 at 1009, Administer flushes and check residuals per policy, Which tube feed product? Peptamen Intense VHP (aka Bariatric), Initial Rate: (mL/hr): 40, Advance by: (mL): 10, Advance every: Q4H, Goal final rate: (mL/hr): 65 Rate/Dose Verify 11/18/2018 6:00 PM EDT 1,300 mLs 65 mL/hr Rate/Dose Verify 11/18/2018 4:00 PM EDT 1,300 mLs 65 mL/h r Rate/Dose Verify 11/18/2018 2:00 PM EDT 1,300 mLs 65 mL/h r vancomycin 1.25 g sodium in chloride 0.9% 250 mL 1,250 mg, Intravenous, at 200 mL/hr, ONCE, 1 dose, On Sat11/14/18 at 0045, Maximum infusion rate is 1 gram/hour. If flushing of the face, neck, upper body, arms, and/or back occurs decrease infusion rate by 50% to reduce the severity of symptoms. This medication may have an associated drug lab level. Please see MAR for scheduled level. Warning Vesicant/Irritant Medication , STAT New Bag 11/14/2018 2:26 AM EDT 1,250 mg 200 mL/hr vancomycin 1.25 g sodium in chloride 0.9% 250 mL 1,250 mg, Intravenous, at 200 mL/hr, EVERY 18 HOURS, First dose on Sat11/14/18 at 2030, Until Discontinued, Maximum infusion rate is 1 gram/hour. If flushing of the face, neck, upper body, arms, and/or back occurs decrease infusion rate by 50% to reduce the severity of symptoms. This medication may have an associated drug lab level. Please see MAR for scheduled level. Warning Vesicant/Irritant Medication , Routine New Bag 11/15/2018 12:41 AM EDT 1,250 mg 200 mL/hr white petrolatum-mineral oil ophthalmic ointment 1 each, Both Eyes, 2 TIMES DAILY, First dose on Sat11/14/18 at 1115, Until Discontinued Given 11/16/2018 8:36 PM EDT 1 each Given 11/15/2018 8:27 PM EDT Given 11/15/2018 8:57 AM EDT 1 each documented in this encounter Active and Recently Administered Medications Times are shown in EDT. Scheduled Medication Order 11/23/2018 11/24/2018 11/25/2018 acetaminophen (TYLENOL) tablet 1,000 mg 1,000 mg, Oral, EVERY 6 HOURS SCHEDULED, First dose (after last modification) on [place] 11/20/18 at 1700, Until Discontinued, Maximum dose of acetaminophen is 4000 mg from all sources in 24 hours., Routine 0010 (Given - Provider: Inge Alvarez RN)0617 (Given - Provider: Inge Alvarez RN)1208 (Given - Provider: Lizbet Diaz RN)1712 (Given - Provider: Lizbet Diaz RN)2320 (Given - Provider: Inge Alvarez RN) 0601 (Given - Provider: Inge Alvarez RN)1158 (Given - Provider: Jonna Thomas RN)1712 (Given - Provider: Jonna Thomas RN) 0005 (Given - Provider: Inge Alvarez RN)0620 (Given - Provider: Inge Alvarez RN)1152 (Given - Provider: Lizbet Diaz RN) citalopram (CeleXA) tablet 40 mg 40 mg, Oral, DAILY, First dose on [place] 11/20/18 at 1145, Until Discontinued, Routine 0833 (Given - Provider: Lizbet Diaz RN) 0856 (Given - Provider: Jonna Thomas RN) 0835 (Given - Provider: Lizbet Diaz RN) clotrimazole (MYCELEX) [place] 10 mg 10 mg, Oral, 5 TIMES DAILY, First dose on [place] 11/23/18 at 1400, Until Discontinued, Routine 1332 (Given - Provider: Lizbet Diaz RN)1712 (Given - Provider: Lizbet Diaz RN)2130 (Given - Provider: Inge Alvarez RN) 0650 (Given - Provider: Inge Alvarez RN)1158 (Given - Provider: Jonna Thomas RN)1437 (Given - Provider: Jonna Thomas RN)1712 (Given - Provider: Jonna Thomas RN)2218 (Given - Provider: Inge Alvarez RN) 0620 (Given - Provider: Inge Alvarez RN)1152 (Given - Provider: Lizbet Diaz RN) cyanocobalamin (vitamin B-12) tablet 1,000 mcg 1,000 mcg, Oral, DAILY, First dose on Sat11/15/18 at 1830, Until Discontinued, Routine 0832 (Given - Provider: Lizbet Diaz RN) 0856 (Given - Provider: Jonna Thomas RN) 0835 (Given - Provider: Lizbet Diaz RN) enoxaparin (LOVENOX) injection 40 mg 40 mg, Subcutaneous, NIGHTLY, First dose on [place] 11/20/18 at 2100, Until Discontinued, Routine 2100 (Not Given - Provider: Inge Alvarez RN - Reason: Patient/family refused) 2007 (Given - Provider: Inge Alvarez RN) folic acid (FOLVITE) tablet 1,000 mcg 1,000 mcg (1 mg), Oral, DAILY, First dose on 11/15/18 at 1445, Until Discontinued, Routine 0832 (Given - Provider: Lizbet Diaz RN) 0856 (Given - Provider: Jonna Thomas RN) 0835 (Given - Provider: Lizbet Diaz RN) gabapentin (NEURONTIN) capsule 300 mg 300 mg, Oral, 3 TIMES DAILY, First dose on Sat11/20/18 at 2100, Until Discontinued, Routine 0833 (Given - Provider: Lizbet Diaz RN)1407 (Given - Provider: Lizbet Diaz RN)2027 (Given - Provider: Inge Alvarez RN) 0856 (Given - Provider: Jonna Thomas RN)1437 (Given - Provider: Jonna Thomas RN)2007 (Given - Provider: Inge Alvarez RN) 0835 (Given - Provider: Lizbet Diaz RN) insulin lispro (HumaLOG) VIAL injection 1-4 Units 1-4 Units, Subcutaneous, EVERY 4 HOURS SCHEDULED, First dose on Sat11/14/18 at 1300, Until Discontinued, CORRECTION BOLUS Sensitive to insulin lean patient or total daily dose of all insulin needed to achieve glycemic control less than 30 units BG 140 - 160 Give 1 unit BG 161 - 200 Give 2 units BG 201 - 240 Give 3 units BG greater than 240, give 4 units and recheck BG in 2 hours. If less than 240 after two hours, give no insulin and resume prior schedule. If BG remains greater than 240, repeat 4 units (no more than three times) & call for new basal insulin orders. DO NOT hold if NPO, unless specifically told to do so., Routine 0000 (Not Given - Provider: Inge Alvarez RN - Reason: Order parameters not met)0400 (Not Given - Provider: Inge Alvarez RN - Reason: Order parameters not met)0800 (Not Given - Provider: Lizbet Diaz RN - Reason: Order parameters not met)1200 (Not Given - Provider: Lizbet Diaz RN - Reason: Order parameters not met)1600 (Not Given - Provider: Lizbet Diaz RN - Reason: Order parameters not met)2000 (Not Given - Provider: Inge Alvarez RN - Reason: Order parameters not met)2319 (Given - Provider: Inge Alvarez RN) 0400 (Not Given - Provider: Inge Alvarez RN - Reason: Order parameters not met)0800 (Not Given - Provider: Mariam Saravia RN - Reason: Order parameters not met - Comment: BG 119)1158 (Not Given - Provider: Jonna Thomas RN - Reason: Order parameters not met - Comment: BS 105)1600 (Not Given - Provider: Jonna Thomas RN - Reason: Order parameters not met)2008 (Given - Provider: Inge Alvarez RN) 0000 (Not Given - Provider: Inge Alvarez RN - Reason: Order parameters not met)0400 (Not Given - Provider: Inge Alvarez RN - Reason: Order parameters not met)0800 (Not Given - Provider: Lizbet Diaz RN - Reason: Order parameters not met)1200 (Not Given - Provider: Lizbet Diaz RN - Reason: Order parameters not met) ipratropium-albuterol (DUONEB) 0.5 mg-3 mg(2.5 mg base)/3 mL nebulizer solution 3 mL 3 mL, Nebulization, EVERY 4 HOURS SCHEDULED, First dose on Sat11/14/18 at 0000, Until Discontinued, Routine 0011 (Given - Provider: Inge Alvarez RN)0347 (Given - Provider: Inge Alvarez RN)0832 (Given - Provider: Lizbet Diaz RN)1200 (Not Given - Provider: Lizbet Diaz RN - Reason: Patient/family refused)1558 (Given - Provider: Lizbet Diaz RN)2027 (Given - Provider: Inge Alvarez RN)2320 (Given - Provider: Inge Alvarez RN) 0433 (Given - Provider: Inge Alvarez RN)0859 (Given - Provider: Jonna Thomas RN)1251 (Given - Provider: Jonna Thomas RN)1634 (Given - Provider: Jonna Thomas RN)2007 (Given - Provider: Inge Alvarez RN) 0005 (Given - Provider: Inge Alvarez RN)0420 (Given - Provider: Inge Alvarez RN)0835 (Given - Provider: Lizbet Diaz RN)1200 (Not Given - Provider: Lizbet Diaz RN - Reason: Patient/family refused) lidocaine (LIDODERM) 5 % patch 1 patch(Linked Group 1) 1 patch, Transdermal, DAILY, First dose on Sat11/20/18 at 1130, Until Discontinued, Apply patch(es) for 12 hours, and then remove for 12 hours, Routine 0832 (Patch Applied - Provider: Lizbet Diaz RN) 0858 (Patch Applied - Provider: Jonna Thomas RN) 0835 (Patch Applied - Provider: Lizbet Diaz RN) lidocaine (LIDODERM) patch REMOVAL(Linked Group 1) Transdermal, NIGHTLY, First dose on Sat11/20/18 at 2100, Until Discontinued, Remove lidocaine 5 %(700 mg/patch) patch 2100 (Patch Removed - Provider: Inge Alvarez RN) 2100 (Patch Removed - Provider: Inge Alvarez RN) pantoprazole (PROTONIX) tablet 40 mg 40 mg, Oral, DAILY, First dose on [place] 11/20/18 at 0900, Until Discontinued, DO NOT CRUSH OR OPEN 0832 (Given - Provider: Lizbet Diaz RN) 0856 (Given - Provider: Jonna Thomas, KAMLA) 0835 (Given - Provider: Lizbet Diaz RN) senna-docusate (PERICOLACE) 8.6-50 mg per tablet 1 tablet 1 tablet, Oral, 2 TIMES DAILY, First dose on [facility] 11/15/18 at 0900, Until Discontinued, Routine 0833 (Given - Provider: Lizbet Diaz RN)2026 (Given - Provider: Inge Alvarez RN) 0856 (Given - Provider: Jonna Thomas RN)2007 (Given - Provider: Inge Alvarez RN) 0900 (Not Given - Provider: Lizbet Diaz RN - Reason: Patient/family refused) sodium chloride 0.9 % flush 5 mL 5 mL, Intravenous, 2 TIMES DAILY, First dose on [place] 11/20/18 at 2100, Until Discontinued, Routine 0833 (Given - Provider: Lizbet Diaz RN)2027 (Given - Provider: Inge Alvarez RN) 0900 (Given - Provider: Jonna Thomas, KAMLA)2012 (Given - Provider: Inge Alvarez RN) 0838 (Given - Provider: Lizbet Diaz RN) traZODone (DESYREL) tablet 12.5 mg 12.5 mg, Oral, NIGHTLY, First dose (after last modification) on [place] 11/20/18 at 2100, Until Discontinued, Routine 2026 (Given - Provider: Inge Alvarez RN) 2007 (Given - Provider: Inge Alvarez RN) Continuous Medication Order 11/23/2018 11/24/2018 11/25/2018 sodium chloride 0.9% infusion 10 mL/hr, Intravenous, CONTINUOUS, Starting on Sat11/14/18 at 1430, Until Sat11/25/18 at 1526 PRN Medication Order 11/23/2018 11/24/2018 11/25/2018 bisacodyl (DULCOLAX) suppository 10 mg 10 mg, Rectal, DAILY PRN, Starting on 11/15/18 at 0723, Until Sat11/25/18 at 1526, Constipation, Routine dextrose 50% intravenous solution 25-50 mL(Linked Group 2) 25-50 mL (12.5-25 g), Intravenous, EVERY 1 HOUR PRN, Starting on Sat11/14/18 at 1135, Until Sat11/25/18 at 1526, Low blood sugar, For BG 50-70 mg/dL: Oral treatment preferred:?? If able to drink, give 120 mL Juice or Regular (not diet) soda OR If NPO, give 15 gram glucose 40% oral gel massaged into buccal mucosa OR if unconscious or uncooperative, give 12.5 gram (25 mL) Dextrose 50% IV OR, if no IV access, give 1 mg Glucagon IM. For BG less than 50 mg/dL: Oral treatment preferred:?? If able to drink, give 240 mL Juice or Regular (not diet) soda OR If NPO, give 30 gram glucose 40% oral gel massaged in buccal mucosa OR if unconscious or uncooperative, give 25 gram (50 mL) Dextrose 50% IV OR, if no IV access, give 1 mg Glucagon IM. Recheck BG in 30 minutes. May repeat juice, gel, dextrose or glucagon once per episode. To avoid extravasation, push Dextrose 50% SLOWLY (3 mL over 1 minute) in a patent, running IV, preferably a central line. For persistent hypoglycemia, consider longer-acting treatment for the duration of the active insulin., Routine diphenoxylate-atropine (LOMOTIL) 2.5-0.025 mg per tablet 1 tablet 1 tablet, Oral, 4 TIMES DAILY PRN, Starting on 11/23/18 at 1103, Until Sat11/25/18 at 1526, Diarrhea, Do not exceed 8 tablets/ 24 hours, Routine 1208 (Given - Provider: Libzet Diaz RN) 0437 (Given - Provider: Inge Alvarez RN) glucagon (human recombinant) injection SolR 1 mg(Linked Group 2) 1 mg, Intramuscular, EVERY 1 HOUR PRN, Starting on Sat11/14/18 at 1135, Until Sat11/25/18 at 1526, Low blood sugar, For BG 50-70 mg/dL: Oral treatment preferred:?? If able to drink, give 120 mL Juice or Regular (not diet) soda OR If NPO, give 15 gram glucose 40% oral gel massaged into buccal mucosa OR if unconscious or uncooperative, give 12.5 gram (25 mL) Dextrose 50% IV OR, if no IV access, give 1 mg Glucagon IM. For BG less than 50 mg/dL: Oral treatment preferred:?? If able to drink, give 240 mL Juice or Regular (not diet) soda OR If NPO, give 30 gram glucose 40% oral gel massaged in buccal mucosa OR if unconscious or uncooperative, give 25 gram (50 mL) Dextrose 50% IV OR, if no IV access, give 1 mg Glucagon IM. Recheck BG in 30 minutes. May repeat juice, gel, dextrose or glucagon once per episode. To avoid extravasation, push Dextrose 50% SLOWLY (3 mL over 1 minute) in a patent, running IV, preferably a central line. For persistent hypoglycemia, consider longer-acting treatment for the duration of the active insulin., Routine glucose (GLUTOSE) 40% oral gel(Linked Group 2) 15-30 g, Buccal, EVERY 30 MIN PRN, Starting on Sat11/14/18 at 1135, Until Sat11/25/18 at 1526, Low blood sugar, For BG 50-70 mg/dL: Oral treatment preferred:?? If able to drink, give 120 mL Juice or Regular (not diet) soda OR If NPO, give 15 gram glucose 40% oral gel massaged into buccal mucosa OR if unconscious or uncooperative, give 12.5 gram (25 mL) Dextrose 50% IV OR, if no IV access, give 1 mg Glucagon IM. For BG less than 50 mg/dL: Oral treatment preferred:?? If able to drink, give 240 mL Juice or Regular (not diet) soda OR If NPO, give 30 gram glucose 40% oral gel massaged in buccal mucosa OR if unconscious or uncooperative, give 25 gram (50 mL) Dextrose 50% IV OR, if no IV access, give 1 mg Glucagon IM. Recheck BG in 30 minutes. May repeat juice, gel, dextrose or glucagon once per episode. To avoid extravasation, push Dextrose 50% SLOWLY (3 mL over 1 minute) in a patent, running IV, preferably a central line. For persistent hypoglycemia, consider longer-acting treatment for the duration of the active insulin. 1 tube contains 15 grams of glucose (net weight of tube = 37.5 grams., Routine lidocaine (XYLOCAINE) 10 mg/mL (1 %) injection 3 mg 3 mg (0.3 mL), Subcutaneous, ONCE PRN, 1 dose, Starting on Sat11/20/18 at 1530, Until Sat11/25/18 at 1526, for discomfort with PIV insertion, Routine sodium chloride 0.9 % flush 5-20 mL 5-20 mL, Intravenous, EVERY 1 MIN PRN, Starting on Sat11/20/18 at 1530, Until Sat11/25/18 at 1526, flush, Flush pertains to all indwelling lines. Flush per protocol found in the job aid using the link provided on this medication record., Routine Linked Groups Order Group 1: lidocaine (LIDODERM) 5 % patch 1 patchJump to med 1 patch, Transdermal, DAILY, First dose on Sat11/20/18 at 1130, Until Discontinued, Apply patch(es) for 12 hours, and then remove for 12 hours, Routine And lidocaine (LIDODERM) patch REMOVALJump to med Transdermal, NIGHTLY, First dose on Sat11/20/18 at 2100, Until Discontinued, Remove lidocaine 5 %(700 mg/patch) patch Group 2: glucose (GLUTOSE) 40% oral gelJump to med 15-30 g, Buccal, EVERY 30 MIN PRN, Starting on Sat11/14/18 at 1135, Until Sat11/25/18 at 1526, Low blood sugar, For BG 50-70 mg/dL: Oral treatment preferred:?? If able to drink, give 120 mL Juice or Regular (not diet) soda OR If NPO, give 15 gram glucose 40% oral gel massaged into buccal mucosa OR if unconscious or uncooperative, give 12.5 gram (25 mL) Dextrose 50% IV OR, if no IV access, give 1 mg Glucagon IM. For BG less than 50 mg/dL: Oral treatment preferred:?? If able to drink, give 240 mL Juice or Regular (not diet) soda OR If NPO, give 30 gram glucose 40% oral gel massaged in buccal mucosa OR if unconscious or uncooperative, give 25 gram (50 mL) Dextrose 50% IV OR, if no IV access, give 1 mg Glucagon IM. Recheck BG in 30 minutes. May repeat juice, gel, dextrose or glucagon once per episode. To avoid extravasation, push Dextrose 50% SLOWLY (3 mL over 1 minute) in a patent, running IV, preferably a central line. For persistent hypoglycemia, consider longer- acting treatment for the duration of the active insulin. 1 tube contains 15 grams of glucose (net weight of tube = 37.5 grams., Routine Or dextrose 50% intravenous solution 25-50 mLJump to med 25-50 mL (12.5-25 g), Intravenous, EVERY 1 HOUR PRN, Starting on Sat11/14/18 at 1135, Until Sat11/25/18 at 1526, Low blood sugar, For BG 50-70 mg/dL: Oral treatment preferred:?? If able to drink, give 120 mL Juice or Regular (not diet) soda OR If NPO, give 15 gram glucose 40% oral gel massaged into buccal mucosa OR if unconscious or uncooperative, give 12.5 gram (25 mL) Dextrose 50% IV OR, if no IV access, give 1 mg Glucagon IM. For BG less than 50 mg/dL: Oral treatment preferred:?? If able to drink, give 240 mL Juice or Regular (not diet) soda OR If NPO, give 30 gram glucose 40% oral gel massaged in buccal mucosa OR if unconscious or uncooperative, give 25 gram (50 mL) Dextrose 50% IV OR, if no IV access, give 1 mg Glucagon IM. Recheck BG in 30 minutes. May repeat juice, gel, dextrose or glucagon once per episode. To avoid extravasation, push Dextrose 50% SLOWLY (3 mL over 1 minute) in a patent, running IV, preferably a central line. For persistent hypoglycemia, consider longer-acting treatment for the duration of the active insulin., Routine Or glucagon (human recombinant) injection SolR 1 mgJump to med 1 mg, Intramuscular, EVERY 1 HOUR PRN, Starting on Sat11/14/18 at 1135, Until Sat11/25/18 at 1526, Low blood sugar, For BG 50-70 mg/dL: Oral treatment preferred:?? If able to drink, give 120 mL Juice or Regular (not diet) soda OR If NPO, give 15 gram glucose 40% oral gel massaged into buccal mucosa OR if unconscious or uncooperative, give 12.5 gram (25 mL) Dextrose 50% IV OR, if no IV access, give 1 mg Glucagon IM. For BG less than 50 mg/dL: Oral treatment preferred:?? If able to drink, give 240 mL Juice or Regular (not diet) soda OR If NPO, give 30 gram glucose 40% oral gel massaged in buccal mucosa OR if unconscious or uncooperative, give 25 gram (50 mL) Dextrose 50% IV OR, if no IV access, give 1 mg Glucagon IM. Recheck BG in 30 minutes. May repeat juice, gel, dextrose or glucagon once per episode. To avoid extravasation, push Dextrose 50% SLOWLY (3 mL over 1 minute) in a patent, running IV, preferably a central line. For persistent hypoglycemia, consider longer-acting treatment for the duration of the active insulin., Routine documented in this encounter Additional Health Concerns Infection Onset Date Last Indicated Resolved Time INFLUENZA 11/13/2018 11/13/2018 11/25/2018 1:26 PM EDT documented as of this encounter Care Teams Computer Support Technician Relationship Specialty Start Date End Date Cb Florence PA [address] [place] [address] PCP - General Family Medicine 11/13/18 03/29/20 documented as of this encounter
--- OUTSIDE RECORDS SUMMARY | 2024-03-17 18:29 | XMS_ITS | Encounter Summary ---
Author Organization [facility] [place] [address] Care Team Providers Care Vibration Technician Name Role Phone Mary Alice Cage MANUELA Primary Care Provider [phone] Encounter Details Date Type Department Care Team (Late st Contact Info) Description 11/05/2017 12:30 PM EDT - 11/05/2017 1:00 PM EDT [place] [address] Machelle Keller MD [facility] [place] [address] EGD, W DIRECTED SUBMUCOSAL INJECTION(S) (WRVU 2.39) Social History Tobacco Use Types Packs/Day Years [...] Sign Reading Time Taken Comments Blood Pressure 151/84 11/05/2017 10:57 AM EDT Pulse 78 11/05/2017 10:57 AM EDT Temperature - - Respiratory Rate - - Oxygen Saturation 97% 11/05/2017 10:57 AM EDT Inhaled Oxygen Concentration - - Weight 86.6 kg (191 lb) 11/05/2017 10:57 AM EDT Height - - Body Mass Index 36.45 09/13/2017 3:54 PM EST documented in this encounter Discharge Instructions * Discharge Instructions* Kandi Monteiro, RN - 11/05/2017 2:22 PM EDT UPPER GI ENDOSCOPY WHAT TO EXPECT AFTER THE PROCEDURE After the test you may feel a little more gassy or bloated than usual, this is normal. ACTIVITY Because of the sedation that you received Your judgement and reaction time are affected ?? Go home and rest quietly for the remainder of the day. You may resume your normal activities tomorrow. ?? Change from one position to the next slowly. You may lose your balance unexpectedly Be careful on stairs, as you may be unsteady on your feet. FOR THE NEXT 24 HRS ?? DO NOT DRIVE OR OPERATE ANY MACHINERY ?? DO NOT DRINK ALCOHOLIC BEVERAGES ?? DO NOT SIGN LEGAL DOCUMENTS ?? If you are a smoker: DO NOT SMOKE WHILE YOU ARE ALONE Diet ?? Start by eating small portions of foods that ordinarily will not upset your stomach. Be gentle with what you choose to start with. ?? Drink plenty of fluids ( unless otherwise told not to) Medications You may have a mild sore throat. Ice chips, popsicles, over the counter throat lozenges or spray may help numb your throat. This procedure should not cause a fever. IV SITE-- slight redness or tenderness is normal, you can use warm compresses if you get concerned.If the tenderness +/or redness increases or foul drainage and a red streak occurs, please contact your PCP immediately. WHEN SHOULD YOU CALL FOR HELP? Call 911 anytime you think that you need emergency care. For example, call if: You passed out (lost consciousness). You cough up blood. You vomit blood or what looks like coffee grounds. You pass maroon or very bloody stools. Call your healthcare provider or seek immediate medical attention if: You have trouble swallowing. You have belly pain. Your stools are black or tarlike or have streaks of blood. You are sick to your stomach or cannot keep fluids down. Watch closely for changes in your health, and be sure to contact your doctor IF Your throat still hurts after a day or two You do not get better as expected. Saturday-Saturday Same Day Endo [phone] 7a-8p Otherwise contact [phone] and ask to speak to the airport guide chief telephone operator Follow-up care is a liriano part of your treatment and safety. Be sure to make and go to all appointments, and call your doctor if you are having problems. Instructions have been reviewed and patient expresses understanding * Patient Instructions* Machelle Keller MD - 11/05/2017 2:03 PM EDT Please see Recommendations in the Provation procedure report which is documented in the procedural note in E-[facility]. documented in this encounter Medications at Time of Discharge Medication Sig Dispensed Refills Start Date End Date guaiFENesin 600 mg Tablet Extended Release 12hrIndications:COPD, moderate Take 1 tablet by mouth 2 times daily. 60 tablet 11 10/03/2016 SYMBICORT 160-4.5 mcg/actuation HFA Aerosol Inhaler Inhale 2 puffs into the lungs 2 times daily. 05/02/2016 OXYGEN-AIR DELIVERY SYSTEMS ( CLASSIC OXYGEN CONCENTRATOR MISC) 3 L by [facility].(Non-Drug; Combo Route) route nightly. diphenoxylate-atropin e (LOMOTIL) 2.5-0.025 mg Tablet Take 1 tablet by mouth 4 times daily. DO NOT restarted this unless you are having diarrhea. 120 tablet 7 06/11/2014 albuterol (PROVENTIL HFA;VENTOLIN HFA) 90 mcg/actuation HFA Aerosol Inhaler Inhale 2 puffs into the lungs every 4 hours as needed. Use with spacer Inhalational Spacing Device Spcr 2 puffs by [facility].(Non-Drug; Combo Route) route daily. promethazine (PHENERGAN) 25 [...] lung Take 10 mg by mouth daily. nystatin (MYCOSTATIN) 100,000 unit/mL Suspension 4 times daily. 09/09/2017 11/14/2018 VIBERZI 100 mg Tablet 2 times daily. 08/01/201711/12 oxyCODONE (ROXICODONE) 10 mg Tablet Take 10 mg by mouth 2 times daily as needed. 11/25/2018 lisinopril (PRINIVIL;ZESTRIL) 5 mg Tablet 10 mg daily. 11/21/2016 11/25/2018 Miscellaneous Medical Supply MiscIndications:PAH (pulmonary artery hypertension) Face mask for nocturnal O2 1 each 10/24/2016 04/18/2020 dexlansoprazole (DEXILANT) 60 mg Cap, Delayed Rel., MultiphasicIndication s:Gastroesophageal reflux disease, esophagitis presence not specified Take 1 capsule by mouth daily. 30 capsule 11 09/13/2016 01/02/2018 meloxicam (MOBIC) 7.5 mg Tablet 2 times daily. 06/23/2016 11/14/2018 hydroCHLOROthiazide (HYDRODIURIL) 25 mg TabletIndications:Ess ential hypertension Take 1 tablet by mouth daily. 30 tablet 12 07/09/2016 11/25/2018 rOPINIRole (REQUIP) 2 mg Tablet Take 2 mg by mouth nightly. Reported on 12/20/2016 05/10/2016 11/14/2018 gabapentin (NEURONTIN) 300 mg Capsule Take 300 mg by mouth 3 times daily. 03/16/2016 11/14/2018 oxyCODONE (ROXICODONE) 10 mg Tablet Take 20 mg by mouth 2 times daily. 02/29/2016 11/25/2018 simvastatin (ZOCOR) 20 mg Tablet Take 20 mg by mouth nightly. 11/14/2018 atenolol (TENORMIN) 25 mg Tablet Take 25 mg by mouth daily. 11/14/2018 acetaminophen (TYLENOL) 500 mg Tablet Take 1,000 mg by mouth every 6 hours as needed. 07/14/2021 fluticasone (FLONASE) 50 mcg/actuation nasal spray USE ONE SPRAY IN EACH NOSTRIL TWICE DAILY 1 each 3 11/07/2013 07/14/2021 ipratropium (ATROVENT) 0.06 % nasal spray USE TWO SPRAYS BY NASAL ROUTE 4 TIMES DAILY 15 mL 2 10/21/2013 07/14/2021 BUPROPION HCL (WELLBUTRIN ORAL) Take 200 mg by mouth 2 times daily. 11/25/2018 citalopram (CELEXA) 40 mg tablet Take 1 tablet by mouth daily. 90 tablet 3 08/19/2012 07/14/2021 documented as of this encounter H&P Notes * Machelle Keller MD - 11/05/2017 12:47 PM EDT Gastroenterology and Hepatology Pre-Procedure History and Physical Exam Procedure: Upper endoscopy and BOTOX injection Indication: Esophageal dysmotility and dysphagia Patient Active Problem List Diagnosis Code ??? [...] J44.9, J98.4 ??? Influenza vaccination contraindicated Z28.09 EXAM: HEENT: Airway examined, oropharynx clear Mallampati Score: II (soft palate, uvula, fauces visible) LUNGS: Clear to auscultation HEART: Regular rate and rhythm, normal S1, S2 ABDOMEN: Normal bowel sounds, soft, non tender, non distended, A/P Proceed with the planned endoscopic procedure. ASA 2 - Patient with mild systemic disease with no functional limitations Sedation Plan: anesthesia Risks and benefits of the procedure explained to the patient. Consent signed. 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 documented in this encounter Plan of Treatment Not on file documented as of this encounter Procedures Procedure Name Priority Date/Time Associated Diagnosis Comments EGD, W DIRECTED SUBMUCOSAL INJECTION(S) (WRVU 2.39) 11/05/2017 1:48 PM EDT NUTCRACKER ESOPHAGUS -BOTOX INJECTION (consult) UPPER GI ENDOSCOPY Routine 11/05/2017 1: 36 PM EDT documented in this encounter Results * UPPER GI ENDOSCOPY (11/05/2017 1:36 PM EDT) [facility] UPPER GI ENDOSCOPY [facility] ___ Procedure Date: 11/05/2017 1:36 PM ? Patient Name: Poppy Mclaughlin ? Date of : 1960 ? Age: 57 ? Order #: [id number] ? Instrument Name: [id number] ? ___ Procedure: ? Upper GI endoscopy Indications: ? Dysphagia, Unexplained chest pain, ? Nutcracker esophagus Providers: ? Machelle Keller MD, Isabell ? KAMLA Martinez Referring MD: ?Mary Alice Cage MD Medicines: ? See the Anesthesia note for ? documentation of the administered ? medications Complications: ? No immediate complications. ___ Procedure: ? Pre-Anesthesia Assessment: ? - Prior to the procedure, a History ? and Physical was performed, and ? patient medications, allergies and ? sensitivities were reviewed. The ? patient's tolerance of previous ? anesthesia was reviewed. ? - The risks and benefits of the ? procedure and the sedation options ? and risks were discussed with the ? patient. All questions were answered ? and informed consent was obtained. ? - Abdominal Examination: bowel sounds ? present, abdomen soft and non-tender, ? no masses or organomegaly noted. ? - CV Examination: normal. ? - Mental Status Examination: alert ? and oriented. ? - Respiratory Examination: clear to ? auscultation. ? - ASA Grade Assessment: II - A ? patient with mild systemic disease. ? - After reviewing the risks and ? benefits, the patient was deemed in ? satisfactory condition to undergo the ? procedure. ? - Monitored anesthesia care under the ? supervision of an anesthesiologist ? was determined to be medically ? necessary for this procedure based on ? patient's history of problems with ? anesthesia. ? - The heart rate, respiratory rate, ? oxygen saturations, blood pressure, ? adequacy of pulmonary ventilation, ? and response to care were monitored ? throughout the procedure. ? - The physical status of the patient ? was re-assessed after the procedure. ? The procedure, indications, benefits, ? risks and alternatives were explained ? to the patient. Specifically ? discussed were potential ? complications including, but not ? limited to, bleeding, perforation, ? infection, missing a cancer, and ? adverse medication reactions. The ? Endoscope was introduced through the ? mouth, and advanced to the second ? part of duodenum. The patient ? tolerated the procedure well. The ? upper GI endoscopy was accomplished ? without difficulty. ? Findings: ? The Z-line was regular and was found 41 cm from the ? incisors. Area was successfully injected with 2 mL ? botulinum toxin for drug delivery in 10 locations ? helically placed coming up from 37 cm. A shallow ? non-obstructing ring was seen at the GE junction.. ? The stomach was normal. 2 cm hiatal hernia noted. ? The examined duodenum was normal. ? Moderate Sedation: ? Not applicable - See Anesthesia documentation Impression: ?- Z-line regular, 41 cm from the ? incisors. Injected at 10 helical ? locations coming proximal from 37 cm. ? 0.2 cc at each site. There was a ? shallow non-obstructing ring at the ? distal esophagus.. ? - Normal stomach. Small hiatal hernia ? noted. ? - Normal examined duodenum. ? - No specimens collected. Recommendation: ?- Continue present medications. ? - Observe patient's clinical course. ? - Repeat upper endoscopy PRN for ? retreatment. ? Attending Participation: ? I personally performed the entire procedure. ? Machelle Keller MD 11/05/2017 2:25:53 PM This report has been signed electronically. Number of Addenda: 0 Note Initiated On: 11/05/2017 1:36 PM PROVATION 11/05/2017 1:36 PM EDT Mary Alice Cage HOME AND FAMILY LIVING PROFESSOR GENERAL SURGICAL ORD ERABLES PROVATION documented in this encounter Visit Diagnoses Not on filedocumented in this encounter Administered Medications Inactive Administered Medications - up to 3 most recent administrations Medication Order MAR Action Action Date Dose Rate Site botulinum toxin type A (BOTOX) injection ONCE PRN, Starting on Tu11/05/17 at 1351, Until Sat11/05/17 at 1808, Intra-Operative (Intra-Procedure), Routine Given 11/05/2017 1:51 PM EDT 100 Units 20-Other (document in comment section) lactated Ringers infusion 100 mL/hr, Intravenous, CONTINUOUS, Starting on 11/05/17 at 1115, Until 11/05/17 at 1521, Endoscopy (Day of Procedure) New Bag 11/05/2017 1:46 PM EDT New Bag 11/05/2017 11:16 AM EDT 100 mL/hr 100 mL/hr documented in this encounter Active and Recently Administered Medications Times are shown in EDT. Continuous Medication Order 11/03/2017 11/04/2017 11/05/2017 lactated Ringers infusion (CANCELED) 100 mL/hr, Intravenous, CONTINUOUS, Starting on 11/05/17 at 1115, Until 11/05/17 at 1521, Endoscopy (Day of Procedure) 1116 (New Bag - Prov ider: Soledad Padron RN)1346 (New Bag - Provider: Kimberly Mazariegos CRNA)1348 (Anesthesia Volume Adjustment - Provider: Kimberly Mazariegos CRNA) PRN Medication Order 11/03/2017 11/04/2017 11/05/2017 botulinum toxin type A (BOTOX) injection (CANCELED) ONCE PRN, Starting on 11/05/17 at 1351, Until 11/05/17 at 1808, Intra-Operative (Intra-Procedure), Routine 1351 (Given - Provid er: Machelle Overton MD - Comment: divided injections with total of 100 units injected into esophagus endoscopically for nutcracker esophagus) documented in this encounter Care Teams Vibration Technician Relationship Specialty Start Date End Date Mary Alice Cage APRN PCP - General 10/12/11 11/12/18 documented as of this encounter
--- OUTSIDE RECORDS SUMMARY | 2024-03-17 18:29 | XMS_ITS | Encounter Summary ---
[place] [address] Care Team Providers Care Methods Engineer Name Role Phone DrewMary Alice davis Rajendra ROY Primary Care Provider [phone] Reason for Visit * Reason Onset Date Comments Prior Authorization 01/09/2018 Encounter Details Date Type Department Care Team (Late st Contact Info) Description 01/09/2018 Telephone [place] [address] Gardenia Bueno CMA GASTROENTEROLOGY DEPT Prior Authorization [...] encounter Miscellaneous Notes * Telephone Encounter - Ej Gilbert RN - 01/28/2018 10:23 AM EDT Approved on appeal Ref # [id number] 01/09/18 - 08/11/18 Left message for patient advising her medication approved. * Telephone Encounter - Gardenia Bueno CMA - 01/09/2018 2:49 PM EDT Medication Prior Authorization [facility] / [place] [address] Subscriber Insurance: [employer] rx Fax: Physician: Osmany Keller Return Pharmacy: Phone: Fax: Medication Requested: Dexilant Strength: 60 mg Frequency: Disp.: Refills: Currently taking: yes Diagnosis for this medication: GERD ICD-10 code: Prior medications trialed in this patient: omeprazole Medication: Outcome/Adverse Reactions: treatment failure Decision: pending Tracking number/Case number/Reference number: Effective date: Start: End: documented in this encounter Plan of Treatment Not on file documented as of this encounter Visit Diagnoses Not on filedocumented in this encounter Care Teams Methods Engineer Relationship Specialty Start Date End Date Mary Alice Cage APRN PCP - General 10/12/11 11/12/18 documented as of this encounter
--- OUTSIDE RECORDS SUMMARY | 2024-03-17 18:30 | XMS_ITS | Encounter Summary ---
Author Organization [facility] [place] [address] Care Team Providers Care Qc Manager Name Role Phone Mary Alice Cage MANUELA Primary Care Provider [phone] Encounter Details Date Type Department Care Team (Late st Contact Info) Description 05/07/2016 Telephone [facility] at [facility] [address] [place] [address] Annie Marino MD [facility] [place] [address] Social History Tobacco Use Types Packs/Day Years Used Date Smoking Tobacco: Every Day Cigarettes 1 20 Smokeless Tobacco: Never Comments:pt would like to sp eak with someone about quiting. Tobacco cessation packet given Alcohol Use Standard Drinks/Week Comments No 0 (1 standard drink = 0.6 oz pur e alcohol) stopped drinking 5 yrs. ago Sex and Gender Information Value Date Recorded Sex Assigned at Not on file Gender Identity Not on file Sexual Orientation Not on file documented as of this encounter Miscellaneous Notes * Telephone Encounter - Annie Marino MD - 05/07/2016 11:36 AM EDT Spoke with Ms. Mclaughlin. Reviewed PSG findings and plan. She reports she understands and is agreeableto returning for another study. documented in this encounter Plan of Treatment Not on file documented as of this encounter Visit Diagnoses Not on filedocumented in this encounter Care Teams Qc Manager Relationship Specialty Start Date End Date Mary Alice Cage APRN PCP - General 10/12/11 11/12/18 documented as of this encounter
--- OUTSIDE RECORDS SUMMARY | 2024-03-17 18:30 | XMS_ITS | Encounter Summary ---
[place] [address] Care Team Providers Care Varnish Mixer Name Role Phone PonceMary Alice davis Rajendra ROY Primary Care Provider [phone] Reason for Visit * Reason Onset Date Comments Prior Authorization 10/15/2016 Denial Encounter Details Date Type Department Care Team (Late st Contact Info) Description 10/15/2016 Telephone [place] [id number] Gardenia Bueno CMA GASTROENTEROLOGY DEPT Prior Authorization (Denial ) Social History Tobacco Use Types Packs/Day Years [...] Telephone Encounter - Gardenia Bueno CMA - 10/15/2016 6:42 AM EST ----- Message from Justin Starkey MD sent at 10/13/2016 9:37 AM EST ----- Regarding: RE: prior authorization Hi. Thank you. They denied the letter of appeal. Would you let her know please? No change in plans for now. Thanks. justin ----- Message ----- From: Gardenia Bueno CMA Sent: 09/25/2016 10:52 AM To: Justin Starkey MD Subject: RE: prior authorization I spoke to Ej, and she said it would be best to have you write a letter of medical necessity, and then I will take it from there. ----- Message ----- From: Justin Starkey MD Sent: 09/25/2016 8:59 AM To: Gardenia Bueno CMA Subject: RE: prior authorization Hi. Yes.let's see if that will work. justin Corral ----- Message ----- From: Gardenia Bueno CMA Sent: 09/25/2016 8:02 AM To: Justin Starkey MD Subject: prior authorization Dear Dr. Starkey, They denied the Glycopyrrolate due to being used as an off label use. 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 We can try and appeal this decision if you would like. documented in this encounter Plan of Treatment Not on file documented as of this encounter Visit Diagnoses Not on filedocumented in this encounter Care Teams Varnish Mixer Relationship Specialty Start Date End Date Mary Alice Cage APRN PCP - General 10/12/11 11/12/18 documented as of this encounter
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
--- OUTSIDE RECORDS SUMMARY | 2024-03-17 18:30 | XMS_ITS | Encounter Summary ---
Author Organization [facility] [place]a [address] [place] [address] Care Team Providers Care Psychometric Examiner Name Role Phone Mary Alice Cage MANUELA Primary Care Provider [phone] Encounter Details Date Type Department Care Team (Latest Contact Info) Description 11/05/2017 10:45 AM EDT - 11/05/2017 4:08 PM EDT Hospital Encounter [place] [address] Osmany Keller MD [facility] [place] [address] Discharge Disposition: Home Social History Tobacco Use [...] Sign Reading Time Taken Comments Blood Pressure 162/85 11/05/2017 2:50 PM EDT Pulse 78 11/05/2017 10:57 AM EDT Temperature - - Respiratory Rate 16 11/05/2017 2:50 PM EDT Oxygen Saturation 97% 11/05/2017 10:57 AM EDT [...] better as expected. Saturday-Saturday Same Day Endo [phone] 7a-8p Otherwise contact [phone] and ask to speak to the obiee obia solution architect senior management consultant Follow-up care is a liriano part of your treatment and safety. Be sure to make and go to all appointments, and call your doctor if you are having problems. Instructions have been reviewed and patient expresses understanding * Patient Instructions* sOmany Keller MD - 11/05/2017 2:03 PM EDT [...] CLASSIC OXYGEN CONCENTRATOR MISC) 3 L by [employer].(Non-Drug; Combo Route) route nightly. diphenoxylate-atropin e (LOMOTIL) 2.5-0.025 mg Tablet Take 1 tablet by mouth 4 times daily. DO NOT restarted this unless you are having diarrhea. 120 tablet 7 06/11/2014 albuterol (PROVENTIL HFA;VENTOLIN HFA) 90 mcg/actuation HFA Aerosol Inhaler Inhale 2 puffs into the lungs every 4 hours as needed. Use with spacer Inhalational Spacing Device Spcr 2 puffs by [facility].(Non-Drug; Combo Route) route daily. 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 documented in this encounter Plan of Treatment Not on file documented as of this encounter Procedures Procedure Name Priority Date/Time Associated Diagnosis Comments EGD, W DIRECTED SUBMUCOSAL INJECTION(S) (WRVU 2.39) 11/05/2017 1:48 PM EDT NUTCRACKER ESOPHAGUS -BOTOX INJECTION (consult) UPPER GI ENDOSCOPY Routine 11/05/2017 1: 36 PM EDT documented in this encounter Results * UPPER GI ENDOSCOPY (11/05/2017 1:36 PM EDT) UPPER GI ENDOSCOPY [facility] Endoscopy ___ Procedure Date: 11/05/2017 1:36 PM ? Patient Name: Poppy Mclaughlin ? Date of : 1960 ? Age: 57 ? Order #: [id number] ? Instrument Name: [id number] ? ___ Procedure: ? Upper GI endoscopy Indications: ? Dysphagia, Unexplained chest pain, ? Nutcracker esophagus Providers: ? Osmany Keller MD, Isabell ? KAMLA Martinez Referring [...] I personally performed the entire procedure. ? Osmany Keller MD 11/05/2017 2:25:53 PM This report has been signed electronically. Number of Addenda: 0 Note Initiated On: 11/05/2017 1:36 PM PROVATION 11/05/2017 1:36 PM EDT Mary Alice Cage PLANNING ASSOCIATE GENERAL SURGICAL ORD ERABLES PROVATION documented in this encounter Visit Diagnoses Not on filedocumented in this encounter Administered Medications Inactive Administered Medications - up to 3 most recent administrations Medication Order MAR Action Action Date Dose Rate Site lactated Ringers infusion 100 mL/hr, Intravenous, CONTINUOUS, Starting on 11/05/17 at 1115, Until Sat11/05/17 at 1521, Endoscopy [...] (Intra-Procedure), Routine 1351 (Given - Provid er: Osmany Overton MD - Comment: divided injections with total of 100 units injected into esophagus endoscopically for nutcracker esophagus) documented in this encounter Care Teams Psychometric Examiner Relationship Specialty Start Date End Date Mary Alice Cage APRN PCP - General 10/12/11 11/12/18 documented as of this encounter
--- OUTSIDE RECORDS SUMMARY | 2024-03-17 18:30 | XMS_ITS | Encounter Summary ---
Author Organization [facility] [address] Care Team Providers Care Air Marshal Name Role Phone Mary Alice Cage APRN Primary Care Provider [phone] Reason for Visit * Reason Comments Medication Refill Encounter Details Date Type Department Care Team (Late st Contact Info) Description 06/15/2016 Refill [place] [address] Justin Starkey MD [facility] [place] [address] Chronic abdominal pain Social History Tobacco Use Types Packs/Day Years [...] of this encounter Visit Diagnoses Diagnosis Chronic abdominal pain Abdominal pain, unspecified site documented in this encounter Care Teams Air Marshal Relationship Specialty Start Date End Date Mary Alice Cage APRN PCP - General 10/12/11 11/12/18 documented as of this encounter
--- OUTSIDE RECORDS SUMMARY | 2024-03-17 18:30 | XMS_ITS | Encounter Summary ---
[place] [address] Care Team Providers Care Hotel Lobby Concierge Name Role Phone CortlandMary Alice davis Rajendra ROY Primary Care Provider [phone] Encounter Details Date Type Department Care Team (Latest Contact Info) Description 07/09/2016 10:59 AM EST - 07/09/2016 11:59 PM [facility] Hospital [place] [address] PAH (pulmonary artery hypertension); COPD, moderate Discharge [...] Sig Dispensed Refills Start Date End Date SYMBICORT 160-4.5 mcg/actuation HFA Aerosol Inhaler Inhale [...] Inhalational Spacing Device Spcr 2 puffs by [facility].(Non-Drug; Combo Route) route daily. promethazine (PHENERGAN) 25 [...] 10 mg by mouth daily. 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 06/23/2016 11/14/2018 lisinopril (PRINIVIL;ZESTRIL) 10 mg TabletIndications:Ess ential hypertension Take 2 tablets by mouth daily. 60 tablet 11 07/09/2016 12/20/2016 hydroCHLOROthiazide (HYDRODIURIL) 25 mg TabletIndications:Ess ential hypertension Take 1 tablet by mouth daily. 30 tablet 12 07/09/2016 11/25/2018 dicyclomine (BENTYL) 10 mg CapsuleIndications:Ch ronic abdominal pain Take 1 capsule by mouth 4 times daily. 120 capsule 06/15/2016 08/10/2016 rOPINIRole (REQUIP) 2 mg Tablet Take 2 mg by mouth nightly. Reported on 12/20/2016 05/10/2016 11/14/2018 gabapentin (NEURONTIN) 300 mg Capsule Take 300 mg by mouth 3 times daily. 03/16/2016 11/14/2018 oxyCODONE (ROXICODONE) 10 mg Tablet Take 20 mg by mouth 2 times daily. 02/29/2016 11/25/2018 eluxadoline 100 mg Tablet Take 100 mg by mouth 2 times daily. 60 tablet 5 01/24/2016 01/23/2017 DEXILANT 60 mg Cap, Delayed Rel., MultiphasicIndication s:Gastroesophageal reflux disease, esophagitis presence not specified TAKE ONE CAPSULE BY MOUTH ONCE DAILY 30 capsule 5 11/28/2015 09/13/2016 Miscellaneous Medical Supply MiscIndications:PAH (pulmonary artery hypertension) Face mask for nocturnal O2 1 each PRN 08/29/2015 10/24/2016 simvastatin (ZOCOR) 20 mg Tablet Take 20 mg by mouth nightly. 11/14/2018 atenolol (TENORMIN) 25 mg Tablet Take 25 mg by mouth daily. 11/14/2018 fluconazole (DIFLUCAN) 100 mg TabletIndications:Thr ush Take 1 tablet by mouth daily. 5 tablet 3 02/21/2015 12/20/2016 BUDESONIDE/FORMOTEROL FUMARATE (SYMBICORT INHL) Inhale 2 puffs into the lungs every 12 hours. 09/13/2017 acetaminophen (TYLENOL) 500 mg Tablet Take 1,000 [...] mg by mouth 2 times daily. 11/25/2018 VITAMIN B COMPLEX ORAL Take 1 tablet by mouth. 09/13/2017 guaiFENesin (ROBITUSSIN) 100 mg/5 mL syrupIndications:Mult iple nodules of lung Take 200 mg by mouth 3 times daily as needed. 12/20/2016 citalopram (CELEXA) 40 mg tablet Take 1 tablet by mouth daily. 90 tablet 3 08/19/2012 07/14/2021 documented as of this encounter Procedure Notes * Delbert Nelson MD - 07/09/2016 2:06 PM ESTAssociated Order(s): PULMONARY FUNCTION TEST FEV1 and FVC are decreased. FEV1/FVC is at the low end of the normal range. Diffusing capacity is reduced. Oxygen saturation on room air at rest is normal. Impression: Spirometry suggests a moderate restrictive defect, which could be confirmed by measurement of lung volumes, if clinically indicated. The low- normal FEV1/FVC and disproportionate reductionin [id number] could represent a co- existent obstructive defect. The decreased diffusing capacity is anon-specific finding consistent with a variety of cardiopulmonary disorders (e.g. Emphysema) as well as anemia. documented in this encounter Plan of Treatment Pending Results Name Type Priority Associated Diagnoses Date /Time Pulmonary Function Testing PFT Routine COPD, moderate 07/09/2016 12:41 PM EST Scheduled Orders Name Type Priority Associated Diagnoses Orde r Schedule Pulmonary Function Testing PFT Routine COPD, moderate 1 Occurrences starting 07/09/2016 until 07/09/2016 documented as of this encounter Procedures Procedure Name Priority Date/Time Associated Diagnosis Comments COMMON PULMONARY FUNCTION TEST Routine 07/09/2016 2:09 PM EST PAH (pulmonary artery hypertension) documented in this encounter Results * Pulmonary Function Testing (07/09/2016 2:09 PM EST) Narrative Delbert Nelson MD - 07/09/2016 2:09 PM EST Delbert Nelson MD ? 07/09/2016 ??2:09 PM FEV1 and FVC are decreased. ??FEV1/FVC is at the low end of the normal range. ??Diffusing capacity is reduced. ??Oxygen saturation on room air at rest is normal. Impression: ??Spirometry suggests a moderate restrictive defect, which could be confirmed by measurement of lung volumes, if clinically indicated. ??The low-normal FEV1/FVC and disproportionate reduction in [id number] could represent a co-existent obstructive defect. ??The decreased diffusing capacity is a non-specific finding consistent with a variety of cardiopulmonary disorders (e.g. Emphysema) as well as anemia. Osmany Overton MD PFT ORDERABLES documented in this encounter Visit Diagnoses Diagnosis PAH (pulmonary artery hypertension) Other chronic pulmonary heart diseases COPD, moderate Chronic airway obstruction, not elsewhere classified documented in this encounter Care Teams Hotel Lobby Concierge Relationship Specialty Start Date End Date Mary Alice Cage APRN PCP - General 10/12/11 11/12/18 documented as of this encounter
--- OUTSIDE RECORDS SUMMARY | 2024-03-17 18:30 | XMS_ITS | Encounter Summary ---
Author Organization [facility] Address [facility] [place] [address] Care Team Providers Care Cash Management Coordinator Name Role Phone Mary Alice Cage Rajendra ROY Primary Care Provider [phone] Reason for Visit * Consultation (Routine) - Closed Specialty Diagnoses / Procedures Referred By Chava alejo Referred To Contact Sleep Center Diagnoses ELO (obstructive sleep apnea) Procedures PRG POLYLSOM 6+ YRS SLEEP W CPAP W 4+ ADDL BELEM Annie Pacheco MD [facility] [place] [address] [facility] Sleep Medicine [address] [place] [address] Referral ID Status Reason Start Date Expiration Date V isits Requested Visits Authorized [id number] Closed Test Only 05/03/2016 05/03/2017 1 1 Encounter Details Date Type Department Care Team (Late st Contact Info) Description 10/31/2016 8:30 PM EDT Procedure visit Sleep Center at [facility] [address] [place] [address] Bambi Angeles MD [facility] [place] [address] ELO (obstructive sleep apnea); Sleep stage dysfunction Social History Tobacco Use Types Packs/Day Years [...] as of this encounter Progress Notes * Bambi Angeles MD - 10/31/2016 8:30 PM EDT Images from the original note were not included. REPORT OF DIAGNOSTIC POLYSOMNOGRAM IDENTIFYING INFORMATION Poppy Mclaughlin : 1960 History Of Present Illness: Poppy Mclaughlin is a 56 y.o. female who presents for a polysomnogram. She returns for PSG/split study to evaluate sleep disordered breathing off of oxygen. She had a baseline PSG done here on 04/25/16 revealing arousal based ELO and sleep related hypoxemia: Snoring: moderate to loud Obstructive respiratory events [...] TCO2: 38.9 torr Max TCO2: 41.8 torr Polysomnography: The patient's sleep was evaluated for one night at the [facility]. Sleep was monitored in accordance with recommended AASM guidelines. The recording also included oral/nasal airflow, chest and abdominal respiratory effort, nasal pressure, single channel EKG, intercostalEMG, bilateral tibialis EMG, and oxygen saturation (by pulse oximeter). Comment: The patient is noted to be drinking Pepsi during the night. - Sleep/EEG: Sleep onset occurs at 9 minutes and sleep efficiency was 58% which is low. No REM sleep was recorded, and REM is also noted to be absent on prior PSG. There are periods of NREM sleep with intervening periods of wake. - Respiratory: Obstructive sleep apnea of a mild degree (AHI of 7) noted. [facility] AHI of 0.5 which includes only apneas and hypopneas with 4% desaturations noted. Minimum saturation asleep of 91%. Mean saturation asleep was 95%. No supplemental oxygen was used. The patient did not qualify for a split night study. No supine sleep was recorded, although the patient did try to sleep supine but was awakeduring that time. - EKG: Normal sinus rhythm with no significant ectopy. - EMG: PLM index of 0. - Study Conditions: Head of the bed: flat Supplemental oxygen: none - Subjective: The post sleep study questionnaire indicated the following: ...how did you sleep last night: average ..how well rested and alert do you feel right now: average Assessment: Ms. Poppy Mclaughlin is a 56 y.o. female whose polysomnogram reveals mild arousal based obstructive sleep apnea. In comparison to previous PSG, ELO appears to be improved. Oxygenation is noted to be significantly improved as well, with saturations staying in the 90s despite no supplemental oxygen used. I am curious to know what has caused this change which could have come about by smoking cessation, or perhaps change in treatment for COPD or pulmonary HTN, or perhaps the absence of arespiratory suppressant that was present during prior PSG. I called the patient's mobile number, but got voicemail and left her a detailed message with study results. Review of office notes reveal complaint of insomnia, which is confirmed during this PSG as well as prior one. The patient also complains of excessive daytime sleepiness, which appears to be due to aninsufficient amount of sleep at night. I recommend reviewing sleep hygiene, especially caffeine intake. The patient was noted to be drinking Pepsi during testing and is noted to drink coffee at home b efore bedtime. She may benefit from a referral for CBT for insomnia. She has a history of RLS, symptoms appear to be controlled on the night of testing. Absence of REM sleep may be due to medications and perhaps ELO. Recommendations: 1. Conservative interventions for this patient's [...] for CBT-I if the patient is agreeable. [facility] Sleep Disorders Center REPORT of Diagnostic Polysomnography Patient Name: Poppy Mclaughlin Study Date: 10/31/2016 Age & Sex: 56 y.o. Female Height: 5'0.8 Date of : 1960 Weight: 189.2 lbs BMI: 36.0 Referring Provider: Recording Technologist: MARLO DE ANDA Scoring Technologist: MARLO MOELLER Sleep Fellow: Sleep Specialist: BAMBI SPRINGER M.D. Scoring Technologist Comments: ECG: NSR Ectopy: PVC/PAC Description of Study: Diagnostic polysomnography was performed utilizing frontal, central & occipital EEG, EOG, submentalis EMG, oronasal thermocouple, nasal pressure, ECG, thoracic and abdominalinductance plethysmography, right and left anterior tibialis EMG, snore sensor, and pulse oximetry according to AASM established guidelines. Study Details & Sleep Architecture Diagnostic Start Time (Lights Off): 22:52:07 Total Recording Time: 427.0 min Diagnostic End Time (Lights On): 05:59:08 Total Sleep Time (minutes): 247.0 Total Num. of Stage Shifts: 102 Total Sleep Time (hrs:min): 4:7.0 Total Num. of Awakenings: 22 Sleep Onset Latency: 9.5 min Total Num. of Trans. to N1: 35 Sleep Efficiency: 57.8% Total Num. of REM Periods: 0 Stage Results: Time (minutes) %TST Latency (minutes) WASO: 170.5 - - N1: 44.5 18.0 0.0 N2: 136.5 55.3 3.5 N3: 66.0 26.7 21.0 REM: 0.0 0.0 - - (minus wake) Arousal Counts: NREM REM Total Spontaneous: 88 (21.4/hr) 0 (-/hr) 88 (21.4/hr) Sum of All Arousals: 103 (25.0/hr) 0 (-/hr) 103 (25.0/hr) Spontaneous arousals include only EEG arousals not associated with a respiratory event or PLM. Body Position: Supine Non-Supine Non-REM: 0.0 min 247.0 min REM: 0.0 min 0.0 min Total Sleep: 0.0 min (0.0%) 247.0 min (100.0%) Respiratory Events Apneas Obstructive Mixed Central Total Apneas Total Count: 0 0 0 0 Mean Duration (sec): 0 0 0 - Longest Duration (sec): 0 0 0 - Index (REM/NREM): 0.0 / 0.0 0.0 / 0.0 0.0 / 0.0 - Index (Sup./Non-Sup.): 0.0 / 0.0 0.0 / 0.0 0.0 / 0.0 - Index (Total): 0.0 0.0 0.0 0.0 Hypopneas & RERAs Hypopnea Definitions: Hypopnea* CMS Hypopnea 3% desat tiny. Hypopneas All RERA Total Count: 2 27 29 0 Mean Duration (sec): 29.1 16.8 - 0 Longest Duration (sec): 31.8 53.0 - 0 Index (REM/NREM): - / 0.5 - / 6.6 0 / 7.1 - / 0.0 Index (Sup./Non-Sup.): - / 0.5 - / 6.6 0 / 7.1 0.0 / 0.0 Index (Total): 0.5 6.6 7.1 0.0 *CMS-defined hypopneas include only hypopneas with a >=4% oxygen desaturation. Includes hypopneas with an arousal or with a 3%-4% desaturation. [facility] Hypopneas not included. Periodic Breathing Total Sleep Time Time (minutes) 0.0 Time (%Sleep Time) 0.0 AHI: Includes all apneas & all hypopneas associated with an arousal or a ? 3% desaturation. Supine Non-Sup. REM NREM Total Count: 0 29 0 29 29 Index (events/hr): 0.0 7.0 0.0 7.0 AHI = 7.0 CMS AHI: Includes all apneas & only hypopneas associated with a ? 4% desaturation. Supine Non-Sup. REM NREM Total Count: 0 2 0 2 2 Index (events/hr): 0 0.5 0 0.5 CMS = 0.5 Obstructive AHI: Includes obstructive & mixed apneas as well as all hypopneas. Excludes centralapneas and RERAs. Supine Non-Sup. REM NREM Total Count: 0 29 0 29 29 Index (events/hr): 0 7.0 0.0 7.0 OAHI = 7.0 RDI: Includes all apneas, all hypopneas, all RERAs, and all ???Unsure??? events. Supine Non-Sup. REM NREM Total Count: 0 29 0.0 28.8 29 Index (events/hr): - 7.0 0.0 7.0 RDI = 7.0 Oxygen Saturation Details SpO2 Awake NREM REM All Sleep DAMIEN Report Sleep Mean: 96% 95% -% 95% 3% DAMIEN 0.6 1.0 Minimum: - 91% -% 91% 4% DAMIEN 0.3 0.5 SpO2 Awake (minutes) NREM (minutes) REM (minutes) All Sleep (minutes) ?90% 0.1 0.0 0.0 0.0 ?89% 0.0 0.0 0.0 0.0 ?88% 0.0 0.0 0.0 0.0 90-99% 158.7 247.0 0.0 247.0 80-89.9% 0.0 0.0 0.0 0.0 70-79.9% 0.0 0.0 0.0 0.0 60-69.9% 0.0 0.0 0.0 0.0 50-59.9% 0.0 0.0 0.0 0.0 ?50% 0.0 0.0 0.0 0.0 Cardiac Details Heart Rate (bpm) Total Study NREM REM All Sleep Minimum - 68 - 68 Maximum 91 91 - 91 Mean - 79 0 79 Limb Movement Details Periodic Limb Movements Total PLMs (and Index) PLMs w/ Arousals (and Index) Wake (after ???Lights Off???): 0 (0.0/hr) 0 (0.0/hr) NREM: 0 (0.0/hr) 0 (0.0/hr) REM: 0 (0.0/hr) 0 (-/hr) Total Sleep: 0 (0.0/hr) 0 (0.0/hr) Graphs PLMs Body Position Supplemental Oxygen documented in this encounter Plan of Treatment Scheduled Referrals Name Type Priority Associated Diagnoses Orde r Schedule Referral to Sleep Disorders Center Outpatient Referral Routine ELO (obstructive sleep apnea) Ordered: 05/03/2016 documented as of this encounter Visit Diagnoses Diagnosis ELO (obstructive sleep apnea) Obstructive sleep apnea (adult) (pediatric) Sleep stage dysfunction Dysfunctions associated with sleep stages or arousal from sleep documented in this encounter Care Teams Cash Management Coordinator Relationship Specialty Start Date End Date Mary Alice Cage APRN PCP - General 10/12/11 11/12/18 documented as of this encounter
--- OUTSIDE RECORDS SUMMARY | 2024-03-17 18:30 | XMS_ITS | Encounter Summary ---
[place] [address] Care Team Providers Care Materials Planning Manager Name Role Phone MortonMary Alice davis Rajendra ROY Primary Care Provider [phone] Reason for Visit * Reason Onset Date Comments Prior Authorization 09/19/2016 Encounter Details Date Type Department Care Team (Late st Contact Info) Description 09/19/2016 [place] [address] Gardenia Bueno CMA GASTROENTEROLOGY DEPT Prior Authorization [...] Telephone Encounter - Gardenia Bueno CMA - 09/19/2016 2:22 PM EST Pharmacy called to check the status of the Glycopyrrolate prior authorization 2:15: I called the pharmacy back to let them know that I am waiting for the note to be completed before pursuing the prior authorization. The pharmacy coordinator agreed to this plan documented in this encounter Plan of Treatment Not on file documented as of this encounter Visit Diagnoses Not on filedocumented in this encounter Care Teams Materials Planning Manager Relationship Specialty Start Date End Date Mary Alice Cage APRN PCP - General 10/12/11 11/12/18 documented as of this encounter
--- OUTSIDE RECORDS SUMMARY | 2024-03-17 18:30 | XMS_ITS | Encounter Summary ---
Author Organization [facility] [address] Care Team Providers Care Loan Administrator Name Role Phone Mary Alice Cage MANUELA Primary Care Provider [phone] Encounter Details Date Type Department Care Team (Late st Contact Info) Description 10/02/2016 1:05 PM EST Anesthesia [place] [address] Fabian Schaeffer MD [facility] [place] [address] Re Palmer CRNA [facility] [place] [address] Anesthesia Record Procedure Summary Procedure Name Responsible Anesthesiologist Anesthesia Start Time Anesthesia Stop Time EGD, UPPER GI ENDOSCOPY (WRVU 2.09) (Trunk) Fabian Schaeffer MD 10/02/16 1305 10/02/16 1332 Events Date Time Event Comment 10/02/2016 1303 1305 AN Verify 1305 Start 1308 An Start Data 1313 An Induction 1315 Anesthesia Ready 1318 Quick Note 28 macedonian nasal trumpet to right nare, atraumatic 1332 an stop data 1332 Recovery or ICU Handoff Kathy ent care was transferred to the destination unit staff after review of the patient's medical history, current anesthetic/surgical status and plan, according to the Provider Handoff Checklist. 1332 Stop Meds Name Total IV Lidocaine 60 mg Propofol 100 mg Propofol INF 258 mg lactated ringers infusion 250 mL * Agents Name O2 * Blood No blood administrations on file. [...] Yana Yuen RN 07/12/21 0158 by Shobha Padilla, KAMAL (RETIRED) Peripheral IV Line - Single Lumen 10/26/15; 22 gauge, 1 in length; median cubital vein (antecubital fossa), left; 11/25/17 (Auto removal via utility); 0921 (Auto removal via utility) 10/26/15 0000 by Davon Kiser RN 11/25/17 0921 by Joaquin, Gardenia (RETIRED) Peripheral IV Line - Single Lumen 10/02/16; 1243; eder-szd-bunuyr catheter system; Tea Gonzales; distraction, intradermal injection; 10/02/16; 1451 10/02/16 1243 by Virgie Lopez RN 10/02/16 1451 by Robin Alonso, KAMLA documented in this encounter Social History Tobacco [...] OR Notes * Anesthesia Postprocedure Evaluation - Fabian Schaeffer MD - 10/02/2016 2:10 PM EST [facility] Department of Anesthesiology Post-procedure Note Patient: Poppy Mclaughlin Procedure Summary Date Anesthesia Start Anesthesia Stop Room / Location 10/02/16 1305 1332 [facility] ENDO 2 / [facility] ENDOSCOPY Procedure Diagnosis Surgeon Responsible Provider EGD, UPPER GI ENDOSCOPY (N/A Trunk) (EGD w/Botox-dysphagia (anesthesia consult)) Justin Starkey MD Surgenor, Stephen D, MD All Anesthesia Providers: Anesthesiologist: Fabian Schaeffer MD DIRECTOR MEDICAL SURGICAL: Re Palmer CRNA Last (1hr) Vitals: BP 106/72 (10/02/16 1335) Temp Pulse 81 (10/02/16 1335) Resp 16 (10/02/16 1335) SpO2 97 % (10/02/16 1335) Patient Location: PACU/MERGED WITH [facility] Level of Consciousness: Awake and Alert Pain Management: Satisfactory Analgesia PONV: None Cardiovascular Status: At Baseline and Hemodynamically Stable Respiratory Status: At Baseline and Room Air Postoperative Fluid Status: Intravascular EUvolemia Possible Anesthetic Complications: NONE apparent at time of evaluation Final Primary Anesthesia Type: General (The anesthetic type performed was the same as planned.) Comments: FABIAN SCHAEFFER MD * Anesthesia Preprocedure Evaluation - Fabian Schaeffer MD - 10/02/2016 11:37 AM EST Pre-Anesthesia Evaluation for: Poppy Mclaughlin a 56 y.o. female. Procedure(s): TRANSPEDICULAR LUMBAR DECOMPRESSION L4-L5 RIGHT Patient Active Problem List Diagnosis ??? Mixed restrictive and obstructive lung [...] of lung ??? Abdominal distention Past Medical History Diagnosis Date ??? Allergy liquid abuterol, egg sensitivity ??? Breathing problem im seeing dr zapata ??? Chronic pain ??? Diabetes mellitus 03/19/2016 ??? Digestive problems 12- ?? gerd, nutcracker syndrome abdominal gistention dr holder ??? ENT disease 3-[address] alex ??? Headache(784.0) ? Hypertensive disease they have said my bp is running high ??? Skin disorder ?? acne Past Surgical History Procedure Laterality Date ??? Pro unlisted diagnostic gastroenterology procedure [address] jimenez ??? Pro lap, cholecystectomy/graph 11/04/2012 LAPAROSCOPIC CHOLECYSTECTOMY WITH CHOLANGIOGRAM performed by Abel Carlton MD at [facility] MAIN OR ??? Pro arthrodesis, ant interbody,decompression; cervical below c2 09/08/2013 ARTHRODESIS, ANT INTERBODY,DECOMPRESSION; CERVICAL BELOW C2 performed by Rios Acuna MD at [facility] MAIN OR ??? Pro arthrd ant interdy cervcl belw c2 ea addl ntrspc 09/08/2013 @ARTHRODESIS ANT INTERBDY CERVCL BELOW C2 EA ADDL INTRSPACE performed by Rios Acuna MD at [facility] OR ??? Pro anterior instrumentation 2-3 vertebral segments 09/08/2013 @ANT. SPINAL INSTRUMENTATION, 2-3 VERTEBRA, SEGMENTED performed by Rios Acuna MD at [facility] [place] ??? Pro allograft for spine surgery only structural 09/08/2013 ALLOGRAFT FOR SPINE SURGERY ONLY; STRUCTUAL performed by Rios Acuna MD at [facility] OR ??? Pro decompress spinal cord, 1 seg Right 08/31/2014 TRANSPEDICULAR LUMBAR DECOMPRESSION SPINAL CORD,EQUINA & NERVE ROOTS, ONE LVL. performed by Rios Acuna MD at [facility] OR ??? Right 08/31/2014 MODIFIER L4 performed by Rios Acuna MD at [facility] MAIN OR ??? Right 08/31/2014 MODIFIER L5 performed by Rios Acuna MD at [facility] MAIN OR ??? Pro upper gi endoscopy, diagnostic N/A 10/26/2015 EGD, UPPER GI ENDOSCOPY performed by Apolinar Sepulveda MD at [facility] ENDOSCOPY ??? Pro upper gi endoscopy, biopsy N/A 10/26/2015 UPPER GASTROINTESTINAL ENDOSCOPY,WITH BIOPSY SINGLE OR MULTIPLE performed by Apolinar Sepulveda MDat [facility] ENDOSCOPY Social History Substance Use Topics ??? Smoking status: Current Every Day Smoker Packs/day: 1.00 Years: 20.00 Types: Cigarettes ??? Smokeless tobacco: Never Used Comment: pt would like to speak with someone about quiting. Tobacco cessation packet given ??? Alcohol use No Comment: stopped drinking 5 yrs. ago History Drug Use ??? Yes ??? Special: Narcotics Comment: pain meds 3x day Allergies Allergen Reactions ??? Pneumococcal Vaccine Other (See Comments) Cold/Flu like symptoms ??? Albuterol Other (See Comments) Liquid--Per patient, she gets hyperactivity. ??? Egg Nausea And Vomiting Medications: MAR and/or home medications have been reviewed. Physical Exam: There were no vitals filed for this visit. There is no height or weight on file to calculate BMI. Airway Assessment: Mallampati: III TM distance: >3 FB Neck ROM: limited 11/04/12 EZ FM, Mac 3 Gr 1 Cardiovascular Assessment: Rhythm: regular cardiovascular exam normal Pulmonary Assessment: breath sounds clear to auscultation (-) decreased breath sounds PE comment: Prolonged expiratory phase, no wheezes Dental Assessment: Comment: Multiple broken and missing teeth. Patient states those present are slightly loose. Extremely poor dentition Upper - stubs at gum level only Lower - no teeth left side of mouth. Remaining teeth poor condition, 5 remaining Misc Assessment: Patient is wearing No contact(s). IV access: Peripheral line Anesthesia Plan: ASA 3 general, with a(n) intravenous induction 53 y.o. female with active smoking; extensive digestive issuses(bloating, chronic diarrhea) following strangulated hernia repair several years ago, now being followed in GI clinic, No documented/reported h/o anesthetic complications. Egg allergy - vomiting but no problems with Propofol during lap CCY at [facility] in 2012. HTN GERD Asthma Depression/anxiety COPD, THOMAS Multiple pulmonary nodules/granulomata NPO: Code: Full Region - Other Informed Consent: Anesthetic plan and risks discussed with patient. Use of blood products discussed with patient who consented to blood products. Plan discussed with DIRECTOR MEDICAL SURGICAL. [facility]. Assessment: PAT Staff Note documented in this encounter Plan of Treatment Not on file documented as of this encounter Visit Diagnoses Not on filedocumented in this encounter Administered Medications Inactive Administered Medications - up to 3 most recent administrations Medication Order MAR Action Action Date Dose Rate Site lidocaine (PF) (XYLOCAINE) 100 mg/5 mL (2 %) injection PRN, Starting on Sat10/02/16 at 1313, Until Sat10/02/16 at 1332, Anesthesia Intra-op, Routine Given 10/02/2016 1:13 PM EST 60 mg propofol (DIPRIVAN) 10 mg/mL bolus injection (Anesthesia) PRN, Starting on Sat10/02/16 at 1313, Until Sat10/02/16 at 1332, Anesthesia Intra-op Given 10/02/2016 1:18 PM EST 20 mg Given 10/02/2016 1:16 PM EST 20 mg Given 10/02/2016 1:14 PM EST 30 mg propofol (DIPRIVAN) infusion CONTINUOUS PRN, Starting on Sat10/02/16 at 1310, Until Sat10/02/16 at 1332, Anesthesia Intra-op, Routine New Bag 10/02/2016 1:10 PM EST 250 mcg/kg/min 129 mL/hr documented in this encounter Care Teams Loan Administrator Relationship Specialty Start Date End Date Mary Alice Cage APRN PCP - General 10/12/11 11/12/18 documented as of this encounter
--- OUTSIDE RECORDS SUMMARY | 2024-03-17 18:30 | XMS_ITS | Encounter Summary ---
Author Organization [facility] [address] Care Team Providers Care Senior Net Software Developer Name Role Phone Mary Alice Cage APRN Primary Care Provider [phone] Reason for Visit * Reason Comments Medication Refill Encounter Details Date Type Department Care Team (Late st Contact Info) Description 08/10/2016 Ref[place] [address] Justin Starkey MD [facility] [place] [address] Chronic abdominal pain Social History Tobacco Use [...] site documented in this encounter Care Teams Senior Net Software Developer Relationship Specialty Start Date End Date Mary Alice Cage APRN PCP - General 10/12/11 11/12/18 documented as of this encounter
--- OUTSIDE RECORDS SUMMARY | 2024-03-17 18:30 | XMS_ITS | Encounter Summary ---
[place] [address] Care Team Providers Care Two Needle Machine Operator Name Role Phone GearyMary Alice davis Rajendra ROY Primary Care Provider [phone] Encounter Details Date Type Department Care Team (Latest Contact Info) Description 09/13/2017 3:26 PM EST - 09/13/2017 11:59 PM EST Hospital [place] [address] COPD, moderate Discharge Disposition: Home Social History [...] Inhalational Spacing Device Spcr 2 puffs by [facility]Non-Drug; Combo Route) route daily. promethazine (PHENERGAN) 25 [...] as of this encounter Procedure Notes * Justin Amezcua MD - 09/13/2017 4:52 PM ESTAssociated Order(s): PULMONARY FUNCTION TEST Pulmonary Function Test Interpretation Spirometry The FVC is reduced. FEV1 is reduced. The FEV1/FVC ratio is reduced. Diffusion Capacity Unadjusted single-breath diffusion capacity for CO is reduced. Oximetry Resting oxyhemoglobin saturation is normal. Resting oximetry was assessed while the patient was breathing room air. Impression: Moderate obstructive ventilatory defect Mild diffusion impairment present Normal resting oximetry Justin Amezcua MD, PhD documented in this encounter Plan of Treatment Not on file documented as of this encounter Procedures Procedure Name Priority Date/Time Associated Diagnosis Comments COMMON PULMONARY FUNCTION TEST Routine 09/13/2017 4:53 PM EST COPD, moderate documented in this encounter Results * Pulmonary Function Testing (09/13/2017 4:53 PM EST) Narrative Justin Amezcua MD - 09/13/2017 4:53 PM EST Justin Amezcua MD ? 09/13/2017 ??4:53 PM Pulmonary Function Test Interpretation Spirometry The FVC is reduced. ??FEV1 is reduced. ??The FEV1/FVC ratio is reduced. Diffusion Capacity Unadjusted single-breath diffusion capacity for CO is reduced. Oximetry Resting oxyhemoglobin saturation is normal. Resting oximetry was assessed while the patient was breathing room air. Impression: Moderate obstructive ventilatory defect Mild diffusion impairment present Normal resting oximetry Justin Amezcua MD, PhD Osmany Overton MD PFT ORDERABLES documented in this encounter Visit Diagnoses Diagnosis COPD, moderate Chronic airway obstruction, not elsewhere classified documented in this encounter Care Teams Two Needle Machine Operator Relationship Specialty Start Date End Date Mary Alice Cage APRN PCP - General 10/12/11 11/12/18 documented as of this encounter
--- OUTSIDE RECORDS SUMMARY | 2024-03-17 18:30 | XMS_ITS | Encounter Summary ---
[place] [address] Care Team Providers Care Recycle Coordinator Name Role Phone [place] Mary Alice Drew APRN Primary Care Provider [phone] Encounter Details Date Type Department Care Team (Latest Contact Info) Description 10/03/2016 1:58 PM EST - 10/03/2016 11:59 PM EST Hospital [place] [address] Mixed restrictive and obstructive lung disease Discharge Disposition: Home Social History Tobacco Use [...] Spacing Device Spcr 2 puffs by [facility] [place].(Non-Drug; Combo Route) route [...] lung Take 10 mg by mouth daily. glycopyrrolate (ROBINUL) 1 mg Tablet Take 1 tablet by mouth 2 times daily. 60 tablet 11 09/13/2016 09/13/2017 dexlansoprazole (DEXILANT) 60 mg Cap, Delayed Rel., MultiphasicIndication s:Gastroesophageal reflux disease, esophagitis presence not specified Take 1 capsule by mouth daily. 30 capsule 11 09/13/2016 01/02/2018 dicyclomine (BENTYL) 10 mg CapsuleIndications:Ch ronic abdominal pain TAKE ONE CAPSULE BY MOUTH 4 TIMES DAILY 360 capsule 3 08/14/2016 12/20/2016 meloxicam (MOBIC) 7.5 mg Tablet 2 times [...] times daily. 60 tablet 5 01/24/2016 01/23/2017 Miscellaneous Medical Supply MiscIndications:PAH (pulmonary artery hypertension) [...] as of this encounter Procedure Notes * Andriy Valdez Jr., MD - 10/03/2016 4:34 PM ESTAssociated Order(s): PULMONARY FUNCTION TEST Pulmonary Function Testing Spirometry reveals mild airflow obstruction with concurrent reduction in vital capacity. Lung volumes demonstrate an increased RV/TLC ratio. In proper context, this could suggest poor effort or neuromuscular limitation. Diffusing capacity is moderately reduced. Oxygen saturation is normal at rest, without ambulatory desaturation. Andriy Valdez MD Pulmonary Medicine documented in this encounter Plan of Treatment Not on file documented as of this encounter Procedures Procedure Name Priority Date/Time Associated Diagnosis Comments COMMON PULMONARY FUNCTION TEST Routine 10/03/2016 4:36 PM EST Mixed restrictive and obstructive lung disease documented in this encounter Results * Pulmonary Function Testing (10/03/2016 4:36 PM EST) Narrative Andriy Valdez Jr., MD - 10/03/2016 4:36 PM EST Andriy Valdez Jr., MD ? 10/03/2016 ??4:36 PM Pulmonary Function Testing Spirometry reveals mild airflow obstruction with concurrent reduction in vital capacity. ??Lung volumes demonstrate an increased RV/TLC ratio. ??In proper context, this could suggest poor effort or neuromuscular limitation. ??Diffusing capacity is moderately reduced. ??Oxygen saturation is normal at rest, without ambulatory desaturation. Andriy Valdez MD Pulmonary Medicine Osmany Overton MD PFT ORDERABLES documented in this encounter Visit Diagnoses Diagnosis Mixed restrictive and obstructive lung disease Chronic airway obstruction, not elsewhere classified documented in this encounter Care Teams Recycle Coordinator Relationship Specialty Start Date End Date Mary Alice Cage APRN PCP - General 10/12/11 11/12/18 documented as of this encounter
--- OUTSIDE RECORDS SUMMARY | 2024-03-17 18:30 | XMS_ITS | Encounter Summary ---
[place] [address] Care Team Providers Care Glycerine Plant Operator Name Role Phone TylerMary Alice davis Rajendra ROY Primary Care Provider [phone] Reason for Visit * Reason Onset Date Comments Prior Authorization 10/19/2016 Encounter Details Date Type Department Care Team (Late st Contact Info) Description 10/19/2016 Telephone [place] [address] Gardenia Bueno CMA GASTROENTEROLOGY DEPT Prior Authorization [...] Telephone Encounter - Ej Gilbert RN - 10/25/2016 11:48 AM EDT Update. Approved on appeal 10/19/16 - 08/11/17 [id number] Patient and pharmacy informed. * Telephone Encounter - Gardenia Bueno CMA - 10/23/2016 9:31 AM EDT Attempted to call patient to ask if she tried loperamide in the past. However, there was no identifier on her voicemail to leave a message. Will try contact her by other means. * Telephone Encounter - Gardenia Bueno CMA - 10/19/2016 2:47 PM EST Medication Prior Authorization [facility] Gastroenterology / [place] [address] Subscriber Insurance: [employer] Physician: Justin Starkey Return Pharmacy: [facility] Medication Requested: Viberzi Strength: 100 mg Frequency: BID Disp.: 60 Refills: 5 Currently taking: yes Diagnosis for this medication: IBS-D ICD-10 code: K58.0 Prior medications trialed in this patient: Dicyclomine, Lomotil, Xifaxan Medication: Outcome/Adverse Reactions: treatment failure Decision: Denied because they want the patient to try the preferred formulary which is loperamide. Unless provider feels that the medication is not appropriate to treat the condition. Tracking number/Case number/Reference number: [id number] Effective date: Start: End: documented in this encounter Plan of Treatment Not on file documented as of this encounter Visit Diagnoses Not on filedocumented in this encounter Care Teams Glycerine Plant Operator Relationship Specialty Start Date End Date Mary Alice Cage APRN PCP - General 10/12/11 11/12/18 documented as of this encounter
--- OUTSIDE RECORDS SUMMARY | 2024-03-17 18:30 | XMS_ITS | Encounter Summary ---
[place] [address] Care Team Providers Care Foam Rubber Fabricator Name Role Phone Mary Alice Cage MANUELA Primary Care Provider [phone] Reason for Visit * Reason Onset Date Comments Medication Refill 10/23/2016 Encounter Details Date Type Department Care Team (Late st Contact Info) Description 10/24/2016 Refill [place] [id number] Kalie Boss RN PAH (pulmonary artery hypertension) Social History Tobacco [...] encounter Miscellaneous Notes * Telephone Encounter - Kalie Boss RN - 10/24/2016 9:08 AM EDTFrom: Poppy Mclaughlin To: Machelle Bueno MD Sent: 10/23/2016 11:35 PM EDT Subject: Medication Renewal Request Original authorizing provider: MD Poppy FINLEY would like a refill of the following medications: Miscellaneous Medical Supply Misc [MACHELLE BUENO MD] Preferred pharmacy: [facility] [address] [place] [address] Comment: documented in this encounter Plan of Treatment Not on file documented as of this encounter Visit Diagnoses Diagnosis PAH (pulmonary artery hypertension) Other chronic pulmonary heart diseases documented in this encounter Care Teams Foam Rubber Fabricator Relationship Specialty Start Date End Date Mary Alice Cage APRN PCP - General 10/12/11 11/12/18 documented as of this encounter
--- OUTSIDE RECORDS SUMMARY | 2024-03-17 18:30 | XMS_ITS | Encounter Summary ---
[place] [address] Care Team Providers Care Auto Transport Driver Name Role Phone Mary Alice Cage APRN Primary Care Provider [phone] Reason for Referral * Diagnostic Test (Routine) - Closed Specialty Diagnoses / Procedures Referred By Contac t Referred To Contact Cardiology Diagnoses PAH (pulmonary artery hypertension) Procedures Echocardiogram Transthoracic(Leb) Osmany Holloway MD [facility] [place] [address] [facility] [place] [address] Referral ID Status Reason Start Date Expiration Date V isits Requested Visits Authorized [id number] Closed Specialty Service Requested 07/09/2016 07/09/2017 1 1 Reason for Visit * Diagnostic Test (Routine) - Closed Specialty Diagnoses / Procedures Referred By Contac t Referred To Contact Cardiology Diagnoses PAH (pulmonary artery hypertension) Procedures Echocardiogram Transthoracic(Leb) Osmany Holloway MD [facility] [place] [address] [facility] [place] [address] Referral ID Status Reason Start Date Expiration Date V isits Requested Visits Authorized [id number] Closed Specialty Service Requested 07/09/2016 07/09/2017 1 1 Encounter Details Date Type Department Care Team (Latest Contact Info) Description 10/03/2016 12:30 PM EST - 10/03/2016 1:57 PM EST Hospital Encounter Non-Invasive Cardiology Lab [facility] [place] [address] Osmany Holloway MD [facility] [place] [address] PAH (pulmonary artery hypertension) Discharge Disposition: Home [...] Priority Date/Time Associated Diagnosis Comments ECHO COMPLETE Routine 10/03/2016 1:24 PM EST PAH (pulmonary artery hypertension) documented in this encounter Results * ECHO COMPLETE (10/03/2016 1:24 PM EST) Anatomical Region Laterality Modality Other 10/03/2016 Narrative 10/03/2016 2:03 PM EST Procedure: ?Transthoracic Echocardiogram Patient: ?ODETTE Del Cid ? (Age): 1960(56y) Med Rec#: ? [id number] ?Sex: ?F ? Site Loc: ? [facility] ?Ht / Wt: ??155(cm)/86(kg) Pt. Loc: ?Echo Lab ?BSA: ?1.85 Study Date: ?? 10/03/2016 ?Pt. Type: Outpatient Tape: ? Referring: Osmany Holloway Reading: Hilario Aguilera ([id number]) Environmental Technology Professor: Andriy Garland Diagnosis: *ICD-10-PCS Other secondary pulmonary hypertension (I27.2) CPT Codes: *Echo Full (80383) *Spectral Doppler (31330) *Color Doppler (61100) Rhythm: ? Sinus BP: ? 106/72 SUMMARY: 1. The left ventricular chamber size is normal. ??Left ventricular wall thickness is normal. ??There is normal global left ventricular systolic function. ??Ejection fraction is estimated to be 65%. ??There are no left ventricular segmental wall motion abnormalities. ??Doppler assessment is consistent with normal left sided filling pressure. 2. Right ventricular chamber size, wall thickness, and systolic function are within normal limits. ??The estimated pulmonary artery systolic pressure is 33 mmHg. ?? 3. The left atrium is normal in size. ??The right atrium appears normal. There is a possible patent foramen ovale demonstrated by color Doppler. 4. There is no hemodynamically significant valve disease. 5. See remainder of report for additional findings. 6. Compared to the prior study on 11/30/2014, there are no significant changes. Findings ? : Study Quality: ? Adequate Left Ventricle: ? The left ventricular chamber size is normal. ?Left ventricular wall thickness is normal. ?There is normal global left ventricular systolic function. ??Ejection fraction is estimated to be 65%. ?There are no left ventricular segmental wall motion abnormalities. ?Doppler assessment is consistent with normal left sided filling pressure. Left Atrium: ? The left atrium is normal in size.22 ml/m2 ?There is a possible patent foramen ovale demonstrated by color Doppler. Right Ventricle: ? Right ventricular chamber size, wall thickness, and systolic function are within normal limits. ?The estimated pulmonary artery systolic pressure is 33 mmHg. Right Atrium: ? The right atrium appears normal. Aortic Valve: ? The aortic valve is trileaflet. The leaflets are thin with normal excursion. There is no aortic stenosis or regurgitation present. Mitral Valve: ? The mitral valve appears normal in structure and function. ?There is mild (1+/4+) mitral regurgitation present. Tricuspid Valve: ? The tricuspid valve appears normal in structure and function. ?There is mild (1+/4+) tricuspid regurgitation present. Pulmonic Valve: ? The pulmonic valve appears normal in structure and function. Pericardium: ? The pericardium appears normal and there is no evidence of a pericardial effusion. Aorta: ? The aortic root is normal in size. ?The ascending aorta is normal in size. Pulmonary Artery: ? The main pulmonary artery appears normal. Venous: ? The inferior vena cava appears normal in size. ?There is a greater than 50% respiratory change in the inferior vena cava dimension. Misc: ? There is no hemodynamically significant valve disease. ?See remainder of report for additional findings. ?Two-dimensional echo, spectral Doppler and color Doppler performed. Chambers 2D ?Value ?Units (Range) ? IVSd (2D) ? 1 ?cm ? LVPWd (2D) ?1 ?cm ? IVS:LVPW ratio (2D) 1 ?ratio ? LVIDd (2D) ?4.6 ?cm ? LVIDs (2D) ?2.6 ?cm ? LVIDd (2D) index ?2.5 ?cm/m2 ? LVIDs (2D) index ?1.4 ?cm/m2 ? LV FS (2D) ?43 ? % ? EF Teichholz (2D) ?? 75 ? % ? Ao root diameter (2D3.3 ?cm (2.1 - 3.6) ? Ascending Ao ?3.4 ?cm (2 - 3.5) ? Volumes/Mass ?Value ?Units (Range) ? LA Area 2 CH ?16 ? cm2 ? LA Area 4 CH ?15 ? cm2 (<21) ? LA ESV BP (A/L) inde22.2 ? ml/m2 ? RA AREA 4CH ? 13 ? cm2 ? LA ESV SP 4CH (MOD) 35.7 ? ml ? LA ESV SP 2CH (MOD) 38.7 ? ml ? LV mass (2D) ?156.3 ?g ? LV mass (2D) index ??84.5 ? g/m2 ? Diastolic/Systolic Function ?Value ?Units (Range) ? MV E-wave Vmax ?0.7 ?m/sec ? MV deceleration hntw088.6 ?msec ? MV A-wave Vmax ?0.7 ?m/sec ? MV E:A ratio ?1.1 ?ratio ? Tricuspid Valve ?Value ?Units (Range) ? TR Vmax ? 2.7 ?m/sec ? TR peak gradient ?29.8 ? mmHg ? RAP ? 3 ?mmHg ? RVSP ?33 ? mmHg ? Measurement Trending Name ? 10/03/2016 ? LVIDd (2D) ? 4.64 LVIDs (2D) ? 2.62 Wall Motion: Segment Name ?Rest ? Base-Anteroseptal ?? Normal ? Base-Anterior ? Normal ? Base-Anterolateral ??Normal ? Base-Posterolateral Normal ? Base-Inferior ? Normal ? Base-Inferoseptal ?? Normal ? Mid-Anteroseptal ?Normal ? Mid-Anterior ?Normal ? Mid-Anterolateral ?? Normal ? Mid-Posterolateral ??Normal ? Mid-Inferior ?Normal ? Mid-Inferoseptal ?Normal ? Call[place]-Septal ? Normal ? [place]-Anterior ? Normal ? [place]-Lateral ?Normal ? [place]-Inferior ? Normal ? [place]-Tip ?Normal ? This report has been electronically signed by: Hilario Aguilera MD ? 10/03/2016 14:03:21 Images reviewed and interpretation verified [facility] Procedure Note Hilario Aguilera MD - 10/03/2016 Procedure: Transthoracic Echocardiogram Patient: ODETTE Del Cid MARYAM(Age): 1960(56y) Med Rec#: [id number] Sex: F Site Loc: [facility] [place] Ht / Wt: 155(cm)/86(kg) Pt. Loc: Echo Lab BSA: 1.85 Study Date: 10/03/2016 Pt. Type: Outpatient Tape: Referring: Osmany Holloway Reading: Hilario Aguilera ([id number]) Environmental Technology Professor: Andriy Garland Diagnosis: *ICD-10-PCS Other secondary pulmonary hypertension (I27.2) CPT Codes: *Echo Full (86403) *Spectral Doppler (25482) *Color Doppler (91354) Rhythm: Sinus BP: 106/72 SUMMARY: 1. The left ventricular chamber size [...] patent foramen ovale demonstrated by color Doppler. 4. There is no hemodynamically significant valve disease. 5. See remainder of report for additional findings. 6. Compared to the prior study on 11/30/2014, there are no significant changes. Findings : Study Quality: Adequate Left Ventricle: The left ventricular chamber size is normal. Left ventricular wall thickness is normal. There is normal global left ventricular systolic function. Ejection fraction is estimated to be 65%. There are no left ventricular segmental wall motion abnormalities. Doppler assessment is consistent with normal left sided filling pressure. Left Atrium: The left atrium is normal in size.22 ml/m2 There is a possible patent foramen ovale demonstrated by color Doppler. Right Ventricle: Right ventricular chamber size, wall thickness, and systolic function are within normal limits. The estimated pulmonary artery systolic pressure is 33 mmHg. Right Atrium: The right atrium appears normal. Aortic Valve: The aortic valve is trileaflet. The leaflets are thin with normal excursion. There is no aortic stenosis or regurgitation present. Mitral Valve: The mitral valve appears normal in structure and function. There is mild (1+/4+) mitral regurgitation present. Tricuspid Valve: The tricuspid valve appears normal in structure and function. There is mild (1+/4+) tricuspid regurgitation present. Pulmonic Valve: The pulmonic valve appears normal in structure and function. Pericardium: The pericardium appears normal and there is no evidence of a pericardial effusion. Aorta: The aortic root is normal in size. The ascending aorta is normal in size. Pulmonary Artery: The main pulmonary artery appears normal. Venous: The inferior vena cava appears normal in size. There is a greater than 50% respiratory change in the inferior vena cava dimension. Misc: There is no hemodynamically significant valve disease. See remainder of report for additional findings. Two-dimensional echo, spectral Doppler and color Doppler performed. Chambers 2D Value Units (Range) IVSd (2D) 1 cm LVPWd (2D) 1 cm IVS:LVPW ratio (2D) 1 ratio LVIDd (2D) 4.6 cm LVIDs (2D) 2.6 cm LVIDd (2D) index 2.5 cm/m2 LVIDs (2D) index 1.4 cm/m2 LV FS (2D) 43 % EF Teichholz (2D) 75 % Ao root diameter (2D3.3 cm (2.1 - 3.6) Ascending Ao 3.4 cm (2 - 3.5) Volumes/Mass Value Units (Range) LA Area 2 CH 16 cm2 LA Area 4 CH 15 cm2 (<21) LA ESV BP (A/L) inde22.2 ml/m2 RA AREA 4CH 13 cm2 LA ESV SP 4CH (MOD) 35.7 ml LA ESV SP 2CH (MOD) 38.7 ml LV mass (2D) 156.3 g LV mass (2D) index 84.5 g/m2 Diastolic/Systolic Function Value Units (Range) MV E-wave Vmax 0.7 m/sec MV deceleration fsko574.6 msec MV A-wave Vmax 0.7 m/sec MV E:A ratio 1.1 ratio Tricuspid Valve Value Units (Range) TR Vmax 2.7 m/sec TR peak gradient 29.8 mmHg RAP 3 mmHg RVSP 33 mmHg Measurement Trending Name 10/03/2016 LVIDd (2D) 4.64 LVIDs (2D) 2.62 Wall Motion: Segment Name Rest Base-Anteroseptal Normal Base-Anterior Normal Base-Anterolateral Normal Base-Posterolateral Normal Base-Inferior Normal Base-Inferoseptal Normal Mid-Anteroseptal Normal Mid-Anterior Normal Mid-Anterolateral Normal Mid-Posterolateral Normal Mid-Inferior Normal Mid-Inferoseptal Normal Callaway-Septal Normal Callaway-Anterior Normal Call[place]-Lateral Normal Call[place]-Inferior Normal Call[place]-Tip Normal This report has been electronically signed by: Hilario Aguilera MD 10/03/2016 14:03:21 Images reviewed and interpretation verified [facility] Osmany Overton MD ECHO ORDERABLES documented in this encounter Visit Diagnoses Diagnosis PAH (pulmonary artery hypertension) Other chronic pulmonary heart diseases documented in this encounter Care Teams Auto Transport Driver Relationship Specialty Start Date End Date Mary Alice Cage APRN PCP - General 10/12/11 11/12/18 documented as of this encounter
--- OUTSIDE RECORDS SUMMARY | 2024-03-17 18:30 | XMS_ITS | Encounter Summary ---
[place] [address] Care Team Providers Care Press Box Custodian Name Role Phone Mary Alice Cage APRN Primary Care Provider [phone] Reason for Referral * Diagnostic Test (Routine) - Closed Specialty Diagnoses / Procedures Referred By Chava alejo Referred To Contact Cardiology Diagnoses PAH (pulmonary artery hypertension) Procedures Echocardiogram Transthoracic(Leb) Osmany Holloway MD [facility] [place] [address] [facility] [place] [address] Referral ID Status Reason Start Date Expiration Date V isits Requested Visits Authorized [id number] Closed Specialty Service Requested 07/09/2016 07/09/2017 1 1 Reason for Visit * Reason Comments Follow-up Encounter Details Date Type Department Care Team (Late st Contact Info) Description 07/09/2016 11:30 AM EST [place] [address] Osmany Holloway MD [facility] [place] [address] Mixed restrictive and obstructive lung disease; PAH (pulmonary artery hypertension); Essential hypertension Social History Tobacco Use Types Packs/Day Years [...] Sign Reading Time Taken Comments Blood Pressure 150/77 07/09/2016 11:34 AM EST Pulse 96 07/09/2016 11:34 AM EST Temperature - - Respiratory Rate 22 07/09/2016 11:34 AM EST Oxygen Saturation 96% 07/09/2016 11:34 AM EST Inhaled Oxygen Concentration - - Weight 93.9 kg (207 lb) 07/09/2016 11:34 AM EST Height 154.4 cm (5' 0.8) 07/09/2016 11:34 AM ES T Body Mass Index 39.37 07/09/2016 11:34 AM EST documented in this encounter Progress Notes * Osmany Holloway MD - 07/09/2016 11:30 AM EST PULMONARY MEDICINE Follow-Up Follow-up 55 y.o. female with dyspnea, diaphragmatic weakness, with cervical nerve compression (s/psurgery) at multiple levels. Always has cough, sputum, wheezing. Still smoking 1ppd. Sleep study seemed to show that SaO2 was maintained on supplemental O2 without CPAP. PAST MEDICAL HISTORY: Patient Active Problem List Diagnosis Code ??? [...] Syncope R55 ??? PAH (pulmonary artery hypertension) I27.2 ??? Chronic low back pain M54.5, G89.29 MEDICATIONS: Outpatient Prescriptions Marked as Taking for the 07/09/16 encounter (Office Visit) with Osmany Holloway MD Medication Sig Dispense Refill ??? baclofen (LIORESAL) 10 mg Tablet ??? dicyclomine (BENTYL) 10 mg Capsule Take 1 capsule by mouth 4 times daily. 120 capsule 0 ??? SYMBICORT 160-4.5 mcg/actuation HFA Aerosol Inhaler Inhale 2 puffs into the lungs 2 times daily. ??? rOPINIRole (REQUIP) 2 mg Tablet Take 2 mg by mouth nightly. ??? gabapentin (NEURONTIN) 300 mg Capsule Take 300 mg by mouth 3 times daily. ??? oxyCODONE (ROXICODONE) 10 mg Tablet Take 10 mg by mouth 3 times daily. ??? albuterol (PROVENTIL) 2.5 mg /3 mL (0.083 %) Solution for Nebulization Take 2.5 mg by nebulization every 4 hours as needed for Wheezing. ??? eluxadoline 100 mg Tablet Take 100 mg by mouth 2 times daily. 60 tablet 5 ??? DEXILANT 60 mg Cap, Delayed Rel., Multiphasic TAKE ONE CAPSULE BY MOUTH ONCE DAILY 30 capsule 5 ??? Miscellaneous Medical Supply [facility] Face mask for nocturnal O2 1 each PRN ??? simvastatin (ZOCOR) 20 mg Tablet Take 20 mg by mouth nightly. ??? OXYGEN-AIR DELIVERY SYSTEMS ([facility]GEN [facility] [place] by [facility].(Non-Drug; Combo Route) route nightly. ??? chlorpheniramine (CHLOR-TRIMETON) 4 mg Tablet Take 4 mg by mouth every 6 hours as needed for Allergies. ??? [DISCONTINUED] HYDROcodone-acetaminophen (VICODIN) 5-300 mg Tablet Take 1 tablet by mouth every4 hours. 10 mg ??? atenolol (TENORMIN) 25 mg Tablet Take 25 mg by mouth daily. ??? fluconazole (DIFLUCAN) 100 mg Tablet Take 1 tablet by mouth daily. 5 tablet 3 ??? [DISCONTINUED] spironolactone (ALDACTONE) 25 mg Tablet Take 25 mg by mouth daily. ??? lisinopril (PRINIVIL;ZESTRIL) 10 mg Tablet Take 1 tablet by mouth daily. 30 tablet 12 ??? BUDESONIDE/FORMOTEROL FUMARATE (SYMBICORT INHL) Inhale 2 puffs into the lungs every 12 hours. ??? diphenoxylate-atropine (LOMOTIL) 2.5-0.025 mg Tablet Take [...] mg by mouth 3 times daily. ??? [DISCONTINUED] ibuprofen (ADVIL;MOTRIN) 800 mg Tablet Take 800 mg by mouth 3 times daily. ??? Inhalational Spacing Device Spcr 2 puffs by [facility].(Non-Drug; Combo Route) route daily. ??? fluticasone (FLONASE) [...] Take 2 tablets by mouth daily. ??? VITAMIN B COMPLEX ORAL Take 1 tablet by mouth. ??? ASCORBATE CALCIUM (VITAMIN C ORAL) Take 2 tablets by mouth daily. ??? loratadine (CLARITIN) 10 mg tablet Take 10 mg by mouth daily. ??? guaiFENesin (ROBITUSSIN) 100 mg/5 mL syrup Take 200 mg by mouth 3 times daily as needed. ??? citalopram (CELEXA) 40 mg tablet Take 1 tablet by mouth daily. 90 tablet 3 ALLERGIES: Pneumococcal vaccine; Albuterol; and Egg PHYSICAL EXAM Last value Range last 24 hrs Temperature Heart Rate Heart Rate: 96 Heart Rate: [96] Blood Pressure BP: 150/77 BP: (150)/(77) Respiratory Rate Resp: 22 Resp: [22] SpO2 SpO2: 96 % SpO2: [96 %] WDWN 55 y.o. female in NAD. HEENT-NC/AT; unremarkable Neck-supple without masses or, nodes Chest- quiet BS with coarse rhonchi bilat Heart-Normal rate and rhythm, without murmers, gallops, or rubs. Abdomen-benign without organomegaly or tenderness Extremities-no cyanosis, clubbing; tr LE edema Skin-no rashes or lesions Musculoskeletal-no joint swelling, tenderness, redness or deformities Neurologic-Nonfocal, without weakness or sensory deficits Lymphatics-unremarkable PFTs were performed today and my interpretation is as follows: FVC 1.94L (63% pred); FEV1 1.38L (57% pred); FEV1/FVC 71%. Diffusing capacity of 43% pred. C/W restrictive lung disease, worse that previous study. IMPRESSION: In summary, this is a 55 y.o. female with restrictive lung physiology, primarily extraparenchymal, with a worsening diffusion abnormality. Clinically has airflow obstruction, and she clearly benefits from treatment for OAD. Sleep study revealed nocturnal desaturation, without hypercarbia, which did not clearly improve with PAP. May require repeat study, but will first get a repeat ECHO before making a decision on that. Using O2 at night already. Unclear why she has so much edema, but may be 2/2 diastolic dysfunction. BP is high and her anti-hypertensive regimen is pretty minimal. Discussed increasing the lisinopril to 20, and add HCTZ 25 mg/day. F/u 6 mo with PFTs. Greater than 20 min of this 25 minute visit was spent in face to face discussion with the patient regarding the nature and complexity of the problems described above, and the details of our diagnostic and therapeutic plans. Had extensive discussion about smoking cessation. documented in this encounter Plan [...] Pulmonary Medicine Osmany Overton MD PFT ORDERABLES * ECHO COMPLETE (10/03/2016 1:24 PM EST) Anatomical Region Laterality Modality Other 10/03/2016 Narrative 10/03/2016 2:03 PM EST Procedure: ?Transthoracic Echocardiogram Patient: ?REBECCACHARLES POPPY M ? (Age): 1960(56y) Med Rec#: ? [id number] ?Sex: ?F ? Site Loc: ? [facility] [place] ?Ht / Wt: ??155(cm)/86(kg) Pt. Loc: ?Echo Lab ?BSA: ?1.85 Study Date: ?? 10/03/2016 ?Pt. Type: Outpatient Tape: ? Referring: Osmany Holloway Reading: Hilario Aguilera ([id number]) Curing Room Supervisor: Andriy Garland Diagnosis: *ICD-10-PCS Other secondary pulmonary hypertension (I27.2) CPT Codes: *Echo Full (51316) *Spectral Doppler (96562) *Color Doppler (72329) Rhythm: ? Sinus BP: ? 106/72 SUMMARY: [...] E-wave Vmax ?0.7 ?m/sec ? MV deceleration gpal653.6 ?msec ? MV A-wave Vmax ?0.7 ?m/sec [...] ? Mid-Inferior ?Normal ? Mid-Inferoseptal ?Normal ? [place]-Septal ? Normal ? [place]-Anterior ? Normal ? [place]-Lateral ?Normal ? [place]-Inferior ? Normal ? [place]-Tip ?Normal ? This report has been electronically signed by: Hilario Aguilera MD ? 10/03/2016 14:03:21 Images reviewed and interpretation verified [facility] Cardiac Ultrasound Laboratory Procedure Note Hilario Aguilera MD - 10/03/2016 Procedure: Transthoracic Echocardiogram Patient: ODETTE Del Cid (Age): 1960(56y) Med Rec#: [id number] Sex: F Site Loc: [facility] [place] Ht / Wt: 155(cm)/86(kg) Pt. Loc: Echo Lab BSA: 1.85 Study Date: 10/03/2016 Pt. Type: Outpatient Tape: Referring: Osmany Holloway Reading: Hilario Aguilera ([id number]) Curing Room Supervisor: Andriy Garland Diagnosis: *ICD-10-PCS Other secondary pulmonary hypertension (I27.2) CPT Codes: *Echo Full (13747) *Spectral Doppler (95206) *Color Doppler (21161) Rhythm: Sinus BP: 106/72 SUMMARY: 1. The [...] MV E-wave Vmax 0.7 m/sec MV deceleration xpmv897.6 msec MV A-wave Vmax 0.7 m/sec MV [...] Normal Mid-Posterolateral Normal Mid-Inferior Normal Mid-Inferoseptal Normal [place]-Septal Normal [place]-Anterior Normal [place]-Lateral Normal [place]-Inferior Normal [place]-Tip Normal This report has been electronically signed by: Hilario Aguilera MD 10/03/2016 14:03:21 Images reviewed and interpretation verified [facility] Cardiac Ultrasound Laboratory Osmany Overton MD ECHO ORDERABLES documented in this encounter Visit Diagnoses Diagnosis Mixed restrictive and obstructive lung disease Chronic airway obstruction, not elsewhere classified PAH (pulmonary artery hypertension) Other chronic pulmonary heart diseases Essential hypertension Unspecified essential hypertension Mixed restrictive and obstructive lung disease Chronic airway obstruction, not elsewhere classified PAH (pulmonary artery hypertension) Other chronic pulmonary heart diseases documented in this encounter Care Teams Press Box Custodian Relationship Specialty Start Date End Date Kent, Mary Alice G, STAIN APPLICATOR PCP - General 10/12/11 11/12/18 documented as of this encounter
--- OUTSIDE RECORDS SUMMARY | 2024-03-17 18:30 | XMS_ITS | Encounter Summary ---
[place] [address] Care Team Providers Care Air Hoist Operator Name Role Phone CacheMary Alice davis Rajendra ROY Primary Care Provider [phone] Reason for Visit * Reason Onset Date Comments Prior Authorization 09/20/2016 Encounter Details Date Type Department Care Team (Late st Contact Info) Description 09/20/2016 Telephone [place] [address] Gardenia Bueno CMA GASTROENTEROLOGY DEPT Prior Authorization [...] Telephone Encounter - Gardenia Bueno CMA - 09/20/2016 12:18 PM EST Received a v/m from the patient regarding her prior authorization for the glycopyrrolate, and asking the status of the prior authorization. I called the patient back, and left a v/m letting her know that still waiting on the note, and oncethe note has been put in I will start the prior authorization, and if she had any questions to callme back. documented in this encounter Plan of Treatment Not on file documented as of this encounter Visit Diagnoses Not on filedocumented in this encounter Care Teams Air Hoist Operator Relationship Specialty Start Date End Date Mary Alice Cage APRN PCP - General 10/12/11 11/12/18 documented as of this encounter
--- OUTSIDE RECORDS SUMMARY | 2024-03-17 18:30 | XMS_ITS | Encounter Summary ---
[place] [address] Care Team Providers Care Alteration Tailor Name Role Phone PipestoneMary Alice davis Rajendra ROY Primary Care Provider [phone] Reason for Referral * Consultation (Routine) - Closed Specialty Diagnoses / Procedures Referred By Chava alejo Referred To Contact Gastroenterology Diagnoses Gastroesophageal reflux disease, esophagitis presence not specified Justin Starkey MD [facility] [address] GASTROENTER[place] [address] [facility] Endoscopy [address] [place] [id number] Referral ID Status Reason Start Date Expiration Date V isits Requested Visits Authorized [id number] Closed Consult, Test & Treat 09/13/2016 09/13/2017 1 1 Reason for Visit * Reason Comments Follow-up Encounter Details Date Type Department Care Team (Latest Contact Info) Description 09/13/2016 10:00 AM EST Office Visit [place] [address] Justin Starkey MD [facility] [address] GASTROENTER[place] [address] Gastroesophageal reflux disease, esophagitis presence not specified; Irritable bowel syndrome with diarrhea; Chronic abdominal pain; Small intestine disorder; Adjustment disorder with anxiety; Depression, unspecified depression type Social History Tobacco Use Types Packs/Day Years [...] Sign Reading Time Taken Comments Blood Pressure 129/82 09/13/2016 10:03 AM EST Pulse 93 09/13/2016 10:03 AM EST Temperature - - Respiratory Rate - - Oxygen Saturation - - Inhaled Oxygen Concentration - - Weight 86.2 kg (190 lb) 09/13/2016 10:03 AM EST shoes Height 154.4 cm (5' 0.8) 09/13/2016 10:03 AM ES T Body Mass Index 36.14 09/13/2016 10:03 AM EST documented in this encounter Progress Notes * Justin Starkey MD - 09/13/2016 10:00 AM EST GI FOLLOWUP Poppy Mclaughlin Female, 56 y.o., 1960 , SR None PCP: Mary Alice Cage APRN ONLINE MARKETING DIRECTOR: None REASON FOR VISIT This is a 56-year-old woman who returns today for a routine followup appointment. LAST VISIT I last saw her on 01/24/16. 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 At our last visit, she weighed 197 pounds. I suggested a trial of an albuterol puffer (swallowed not inhaled) for her esophageal spastic disorder. Shewas going to continue lifestyle modifications and Dexilant for reflux. We initiated a trial of azithromycin to help with gas and bloating related to methane overproduction; we instituted a trial of eluxadoline for her IVU-hfbe-kxqxnegd symptoms. She was going to call one month later in followup to report on her symptoms. ON REVIEW TODAY In terms of gas and bloating, symptoms persist despite trying to minimize foods with fructose and lactose. The azithromycin trial did not help. In terms of her esophageal spastic disorder, albuterol puffer did not help. We discussed using nitroglycerin, but she is nervous about this. We discussed using another antispasmodic (Robinul) or doing Botox injections of the esophagus. Finally, in terms of her IBS-D symptoms, eluxadoline helped. She did not have any side effects. Sheis running out of that prescription. In terms of overall health, she is followed closely by the pulmonary service for her worsening COPDand concerns over progressive pulmonary hypertension. She notes that a recent hemoglobin A1c was excellent at 6.2. She has not had any recent surgery. She had an emergency room visit after a pain clinic visit with an injection, and it may be related to elevated blood sugars. We had a nice discussion about symptoms. A treatment plan is outlined below. ALLERGIES/ADR See eD-H; reviewed. MEDICATIONS See eD-H; reviewed. PAST MEDICAL HISTORY 1. COPD; on home [...] 12. Diabetes; hemoglobin A1c 09/12/16 was 16.2. PAST SURGICAL HISTORY 1. Emergency hernia repair May 2011, [place]. 2. Cholecystectomy 11/24/12. 3. Cervical spine fusion surgery August 2013. 4. Lumbar discectomy 08/2014. HABITS Positive tobacco. No alcohol for fscy-lut-e-half years. FAMILY HISTORY Noncontributory. SOCIAL HISTORY for 14 years, not currently working, applying for disability. One vaginal delivery with episiotomy. RECENT TESTING 1. Colonoscopy, [facility]: normal. 2. Upper endoscopy [facility]: normal. 3. CT scan [facility]: normal. 4. Abdominal ultrasound: gallstones noted. 5. 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 6. Breath hydrogen test 05/13/12: no evidence of bacterial overgrowth; methane overproduction. 7. High-resolution esophageal manometry 10/26/15: evidence of mild EGJ outflow obstruction; hypertensive peristalsis of the body thus characterized as ???nutcracker esophagus?? with DCI of 5404. 8. EGD 10/26/15: normal; Z-line at 41. 9. Vapht-qxvoi-ugen wireless pH capsule 10/26/15 to 10/28/15 off PPI therapy: DeMeester score of 19.2on day one and 13.0 on day two. MEDICATION/DIET TRIALS 1. Neomycin - no help. [...] IBS and diarrhea symptoms; no side effects. PHYSICAL EXAM Height 5 feet 1 inch, weight 190 pounds. Abdomen: Rounded, soft. Bowel sounds present. Mildly distended, mildly tympanitic. IMPRESSIONS/RECOMMENDATIONS 1. Follow up with PCP as scheduled. 2. PRO lifestyle modifications. Continue Dexilant at 60 mg q.a.m. one-half hour before breakfast. Isent the new prescription to her local pharmacy. 3. For gas and bloating related to methane overproduction, trial of Bactrim DS one twice daily for 10 days. If that is not helpful, in the future, we can consider use of Augmentin. 4. For IBS with diarrhea, continue eluxadoline 100 mg twice daily. No further testing necessary. 5. For esophageal spastic disorder, a trial of Robinul at 1 mg once or twice daily. If not helpful,then EGD with Botox injection of the esophagus. 6. No specialized tests other than an upcoming endoscopy have been scheduled. 7. I will see the patient back in followup in six months. TIME SPENT WITH PATIENT Total Minutes: 40 Minutes of Zsjk-qz-Wyfb Counseling: Greater than 35 minutes were spent in raic-wd-iwfr counseling and coordination of care. Justin Starkey, PhD, MD pest control worker, [facility] [employer] [facility] [employer] Chief, Section of Gastroenterology and Hepatology [facility] [place] [address] V: [phone] F: [phone] BEL/mian CC/EC: PCP - staff msg copy 09/20/16 [facility] - staff msg copy 09/20/16 documented in this encounter Plan of Treatment Scheduled Referrals Name Type Priority Associated Diagnoses Order Schedule Referral to Gastroenterology Outpatient Referral Routine Gastroesophageal reflux disease, esophagitis presence not specified Ordered: 09/13/2016 documented as of this encounter Visit Diagnoses Diagnosis Gastroesophageal reflux disease, esophagitis presence not specified Irritable bowel syndrome with diarrhea Irritable bowel syndrome Chronic abdominal pain Abdominal pain, unspecified site Small intestine disorder Unspecified disorder of intestine Adjustment disorder with anxiety Depression, unspecified depression type documented in this encounter Care Teams Alteration Tailor Relationship Specialty Start Date End Date Mary Alice Cage APRN PCP - General 10/12/11 11/12/18 documented as of this encounter
--- OUTSIDE RECORDS SUMMARY | 2024-03-17 18:30 | XMS_ITS | Encounter Summary ---
Author Organization [facility] [place] [address] Care Team Providers Care Roping Machine Tender Name Role Phone Mary Alice Cage APRN Primary Care Provider [phone] Reason for Referral * Psychiatric (Routine) - Specialty Diagnoses / Procedures Referred By Chava alejo Referred To Contact Psychiatry Diagnoses Insomnia, unspecified type Sleep difficulties Shobha Duke APRN [facility] [place] [address] Referral ID Status Reason Start Date Expiration Date V isits Requested Visits Authorized [id number] Consult, Test & Treat 12/31/2016 06/29/2017 1 1 Encounter Details Date Type Department Care Team (Late st Contact Info) Description 12/28/2016 Telephone Sleep [facility] at [facility] [address] [place] [address] Jaclyn Arguello Social History Tobacco Use Types Packs/Day Years [...] encounter Miscellaneous Notes * Telephone Encounter - Shobha Duke APRN - 12/31/2016 12:15 PM EDT Referral sent today. MANUELA FRANK Sleep Medicine 12/31/16 documented in this encounter Plan of Treatment Scheduled Referrals Name Type Priority Associated Diagnoses Orde r Schedule Referral to Psychiatry Outpatient Referral Routine Insomnia, unspecified type Sleep difficulties Ordered: 12/31/2016 documented as of this encounter Visit Diagnoses Diagnosis Insomnia, unspecified type Sleep difficulties Sleep disturbance, unspecified documented in this encounter Care Teams Roping Machine Tender Relationship Specialty Start Date End Date Mary Alice Cage APRN PCP - General 10/12/11 11/12/18 documented as of this encounter
--- OUTSIDE RECORDS SUMMARY | 2024-03-17 18:30 | XMS_ITS | Encounter Summary ---
Author Organization [facility] Address [facility] [place] [address] Care Team Providers Care Applied Psychology Chair Name Role Phone [place] BluffMary Alice davis MANUELA Primary Care Provider [phone] Encounter Details Date Type Department Care Team (Late st Contact Info) Description 09/13/2017 4:00 PM EST Office [place] [address] Osmany Holloway MD [facility] [place] [address] Influenza vaccination contraindicated; COPD, moderate Social History Tobacco Use Types [...] Sign Reading Time Taken Comments Blood Pressure 139/78 09/13/2017 3:54 PM EST Pulse 93 09/13/2017 3:54 PM EST Temperature 36.8 ??C (98.2 ??F) 09/13/2017 3:54 PM ES T Respiratory Rate - - Oxygen Saturation 97% 09/13/2017 3:54 PM EST Inhaled Oxygen Concentration - - Weight 85.3 kg (188 lb) 09/13/2017 3:54 PM EST Height 154.2 cm (5' 0.7) 09/13/2017 3:54 PM EST Body Mass Index 35.87 09/13/2017 3:54 PM EST documented in this encounter Progress Notes * Osmany Holloway MD - 09/13/2017 4:00 PM EST PULMONARY MEDICINE Follow-Up Follow-up 57 y.o. female with dyspnea, diaphragmatic weakness, with cervical nerve compression (s/psurgery) at multiple levels. Always has cough, sputum, wheezing. Still smoking about 1 ppd. Sputum has been yellow and thick, mostly in the morning. Not using Aerobika, and still has sore right ribs after a fall. Did not have flu shot (allergic to eggs). No URI this season. She has been diagnosed with sleep apnea but was not able to tolerate CPAP, and complains of daytime fatigue and somnolence. PAST MEDICAL HISTORY: Patient Active Problem List [...] restrictive and obstructive lung disease J44.9, J98.4 MEDICATIONS: Outpatient Prescriptions Marked as Taking for the 09/13/17 encounter (Office Visit) with Osmany Holloway MD Medication Sig Dispense Refill ??? VIBERZI 100 mg Tablet 2 times daily. ??? oxyCODONE (ROXICODONE) 10 mg Tablet Take 10 mg by mouth 2 times daily as needed. ??? lisinopril (PRINIVIL;ZESTRIL) 5 mg Tablet daily. ??? guaiFENesin 600 mg Tablet Extended Release 12hr Take 1 tablet by mouth 2 times daily. 60 [id number] ??? dexlansoprazole (DEXILANT) 60 mg Cap, Delayed Rel., Multiphasic Take 1 capsule by mouth daily. 30 capsule 11 ??? glycopyrrolate (ROBINUL) 1 mg Tablet Take 1 tablet by mouth 2 times daily. 60 tablet 11 ??? baclofen (LIORESAL) 10 mg Tablet Take by mouth 2 times daily. ??? meloxicam (MOBIC) 7.5 mg Tablet 2 times daily. ??? hydroCHLOROthiazide (HYDRODIURIL) 25 mg Tablet Take 1 tablet by mouth daily. 30 tablet 12 ??? SYMBICORT 160-4.5 mcg/actuation HFA Aerosol Inhaler Inhale 2 puffs into the lungs 2 times daily. ??? gabapentin (NEURONTIN) 300 mg Capsule Take [...] L by Misc.(Non-Drug; Combo Route) route nightly. ??? chlorpheniramine (CHLOR-TRIMETON) 4 mg Tablet Take 4 mg by mouth every 6 hours as needed for Allergies. ??? atenolol (TENORMIN) 25 mg Tablet Take 25 mg by mouth daily. ??? [DISCONTINUED] BUDESONIDE/FORMOTEROL FUMARATE (SYMBICORT INHL) Inhale 2 puffs [...] hours as needed. Use with spacer ??? Inhalational Spacing Device Spcr 2 puffs by [facility].(Non-Drug; Combo Route) route [...] Take 2 tablets by mouth daily. ??? [DISCONTINUED] VITAMIN B COMPLEX ORAL Take 1 tablet by mouth. ??? loratadine (CLARITIN) 10 mg tablet Take 10 mg by mouth daily. ??? citalopram (CELEXA) 40 mg tablet Take 1 tablet by mouth daily. 90 tablet 3 ALLERGIES: Pneumococcal vaccine; Albuterol; and Egg PHYSICAL EXAM Last value Range last 24 hrs Temperature Temp: 36.8 ??C (98.2 ??F) Heart Rate Heart Rate: 93 Heart Rate: [93] Blood Pressure BP: 139/78 BP: (139)/(78) Respiratory Rate Resp: -- SpO2 SpO2: 97 % SpO2: [97 %] WDWN 57 y.o. female in NAD. HEENT-NC/AT; unremarkable Neck-supple without masses or, nodes Chest- diminished breath sounds but otherwise clear. Heart-Normal rate and rhythm, without murmers, gallops, or rubs. Abdomen-benign without organomegaly or tenderness Extremities-no cyanosis, clubbing; tr LE edema Skin-no rashes or lesions Musculoskeletal-no joint swelling, tenderness, redness or deformities Neurologic-Nonfocal, without weakness or sensory deficits Lymphatics-unremarkable PFTs were performed today and my interpretation is as follows: FVC 2.16L (71% pred); FEV1 1.49L (62% pred); FEV1/FVC 69%. Diffusing capacity of 75% pred. C/W combined obstructive and restrictive lungdisease, improved slightly since previous study, particularly her diffusing capacity. IMPRESSION: In summary, this is a 57 y.o. female with restrictive and obstructive lung physiology, primarily extraparenchymal, with hx of elevated residual volume, intermittent sputum production. Airflow (and smoking) unchanged. Concerned about influenza, so will give her an Rx for Tamiflu. Discussed ACT with Aerobika and Mucinex. F/U 6 mo w/PFTs. Greater than 20 min of this 25 minute visit was spent in face to face discussion with the patient regarding the multitude and combination of problems described above, and the possible approaches to dealing with her overall symptoms, particularly her respiratory problems. Had extensive discussion about smoking cessation. documented in this encounter Plan of Treatment Not on file documented as of this encounter Visit Diagnoses Diagnosis Influenza vaccination contraindicated Vaccination not carried out for other reason COPD, moderate Chronic airway obstruction, not elsewhere classified documented in this encounter Care Teams Applied Psychology Chair Relationship Specialty Start Date End Date Mary Alice Cage APRN PCP - General 10/12/11 11/12/18 documented as of this encounter
--- OUTSIDE RECORDS SUMMARY | 2024-03-17 18:30 | XMS_ITS | Encounter Summary ---
[place] [address] Care Team Providers Care Developmental Specialist Name Role Phone [place]Mary Alice davis MANUELA Primary Care Provider Encounter Details Date Type Department Care Team (Late st Contact Info) Description 05/04/2016 Telephone Sleep Center at [facility] [address] [place] [address] Annie Marino MD [facility] [place] [address] Social History Tobacco Use Types Packs/Day Years [...] Telephone Encounter - Annie Marino MD - 05/04/2016 4:47 PM EDT Called back - no answer. Left message. documented in this encounter Plan of Treatment Not on file documented as of this encounter Visit Diagnoses Not on filedocumented in this encounter Care Teams Developmental Specialist Relationship Specialty Start Date End Date Mary Alice Cage APRN PCP - General 10/12/11 11/12/18 documented as of this encounter
--- OUTSIDE RECORDS SUMMARY | 2024-03-17 18:30 | XMS_ITS | Encounter Summary ---
Author Organization [facility] [address] Care Team Providers Care Plycor Operator Name Role Phone Mary Alice Cage APRN Primary Care Provider Reason for Visit * Reason Comments Medication Refill Encounter Details Date Type Department Care Team (Late st Contact Info) Description 03/25/2017 [place] [address] Justin Starkey MD [facility] [place] [address] Social History Tobacco Use Types Packs/Day Years [...] on filedocumented in this encounter Care Teams Plycor Operator Relationship Specialty Start Date End Date Mary Alice Cage APRN PCP - General 10/12/11 11/12/18 documented as of this encounter
--- OUTSIDE RECORDS SUMMARY | 2024-03-17 18:30 | XMS_ITS | Encounter Summary ---
[place] [address] Care Team Providers Care Hand Bunch Maker Name Role Phone [place]haMary Alice davis Rajendra ROY Primary Care Provider Reason for Visit * Reason Onset Date Comments Prior Authorization 09/21/2016 Encounter Details Date Type Department Care Team (Late st Contact Info) Description 09/21/2016 Telephone [place] [address] Gardenia Bueno CMA GASTROENTEROLOGY DEPT Prior Authorization [...] Telephone Encounter - Gardenia Bueno CMA - 10/03/2016 3:13 PM EST Sent in the appeal for the Glycopyrrolate and waiting for decision * Telephone Encounter - Gardenia Bueno CMA - 09/25/2016 11:05 AM EST Called Malgorzata from the [facility] pharmacy to let them know that the Glycopyrrolate was denied. However, that the provider wants to appeal the decision. Malgorzata said that she put a note in, and will wait tohear the outcome of the decision. * Telephone Encounter - Gardenia Bueno CMA - 09/25/2016 10:54 AM EST Called the patient to tell her the status of the prior authorization, and that we going to attempt to appeal the decision. The v/m was unrecognizable so I was unable to leave a message will try another form of communication. * Telephone Encounter - Gardenia Bueno CMA - 09/21/2016 11:37 AM EST Medication Prior Authorization 4L Gastroenterology / [place] [address] Subscriber Insurance: [employer]umRX Physician: Justin Starkey Return Pharmacy: [facility] Telephone Fax ? [phone] Medication Requested: Glycopyrrolate Strength: 1 mg Frequency: BID Disp.: 30 Refills: 11 Currently taking: no Diagnosis for this medication: dyskinesia of esophagus ICD-10 code: K22.4 Prior medications trialed in this patient: Bentyl,Albuterol puffer Medication: Outcome/Adverse Reactions: treatment failure Decision: denied the claim being being used as an off label use. Tracking number/Case number/Reference number: [id number] Effective date: Start: End: documented in this encounter Plan of Treatment Not on file documented as of this encounter Visit Diagnoses Not on filedocumented in this encounter Care Teams Hand Bunch Maker Relationship Specialty Start Date End Date Mary Alice Cage APRN PCP - General 10/12/11 11/12/18 documented as of this encounter
--- OUTSIDE RECORDS SUMMARY | 2024-03-17 18:30 | XMS_ITS | Encounter Summary ---
Author Organization [facility] [place] [address] Care Team Providers Care Transportation Officer Name Role Phone Mary Alice Cage MANUELA Primary Care Provider [phone] Encounter Details Date Type Department Care Team (Late st Contact Info) Description 10/02/2016 1:00 PM EST - 10/02/2016 1:30 PM EST [place] [address] Justin Starkey MD [facility] DR [place] [address] EGD, UPPER GI ENDOSCOPY (WRVU 2.09) Social History Tobacco Use Types Packs/Day Years [...] Sign Reading Time Taken Comments Blood Pressure 116/81 10/02/2016 12:37 PM EST Pulse 86 10/02/2016 12:37 PM EST Temperature - - Respiratory Rate 18 10/02/2016 12:37 PM EST Oxygen Saturation 100% 10/02/2016 12:37 PM EST Inhaled Oxygen Concentration - - Weight - - Height - - Body Mass Index - - documented in this encounter Discharge Instructions * Discharge Instructions* Robin Alonso RN - 10/02/2016 1:36 PM EST You may have received medication before and/or during your procedure which effects judgement and reaction time. Do not drive, operate machinery, drink alcoholic beverages, or make important decisions for 24 hours. Be careful on stairs, as you may be unsteady on your feet. You may eat a regular diet as tolerated. Do not smoke if you are alone. IV site -- slight redness or tenderness is normal. You may use a warm compress. If tenderness and redness increases or foul drainage occurs please contact your M.D. Please call [phone] before 5 pm with problems, questions or concerns. After 5pm call [phone] and ask to speak with the residence leasing agent application security specialist. Discharge instructions reviewed with patient who expresses understanding. * Patient Instructions* Justin Starkey MD - 10/02/2016 1:24 PM EST Please see Recommendations in the Provation procedure report which is documented in the procedural note in E-DH. * Attachments The following attachments cannot be sent through Care Everywhere. * EGD (UPPER ENDOSCOPY): POST-OP ([place]IVEHI) documented in this encounter Medications at Time [...] Inhalational Spacing Device Spcr 2 puffs by [facility].(Non-Drug; Combo Route) route daily. promethazine (PHENERGAN) 25 [...] mouth daily. 30 capsule 11 09/13/2016 01/02/2018 eluxadoline 100 mg Tablet Take 100 mg by mouth 2 times daily. 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 60 tablet 01/24/2016 01/23/2017 Miscellaneous Medical Supply MiscIndications:PAH (pulmonary [...] as of this encounter H&P Notes * Justin Starkey MD - 10/02/2016 12:59 PM EST See my note; hypercontractile esophagus; failed standard therapy; here for EGD with botox; risks explained; consent signed; stable for egd with anesthesia assistance due to opioids and multiple medications and psychological issues. documented in this encounter Plan of Treatment Not on file documented as of this encounter Procedures Procedure Name Priority Date/Time Associated Diagnosis Comments EGD, UPPER GI ENDOSCOPY (WRVU 2.09) 10/02/2016 1:08 PM EST EGD w/Botox-dysphagia (anesthesia consult) UPPER GI ENDOSCOPY Routine 10/02/2016 12 :56 PM EST documented in this encounter Results * UPPER GI ENDOSCOPY (10/02/2016 12:56 PM EST) UPPER GI ENDOSCOPY [facility] End[facility] ___ Procedure Date: 10/02/2016 12:56 PM ? Patient Name: Poppy Mclaughlin ? Date of : 1960 ? Age: 56 ? Order #: [id number] ? Instrument Name: [id number] ? ___ Procedure: ? Upper GI endoscopy Indications: ? 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 neuromuscular dysfunction; need for ? botox injection; failed standard ? therapy Providers: ? Justin Starkey MD, Felipa Lau ? KAMLA Barrera, Davon Kiser RN Referring : ?Mary Alice Cage MD Medicines: ? Monitored Anesthesia Care Complications: ? No immediate complications. ___ Procedure: ? The procedure, indications, benefits, ? risks and alternatives were explained ? to the patient. Specifically ? discussed were potential ? complications including, but not ? limited to, bleeding, perforation, ? infection, missing a cancer, and ? adverse medication reactions. The ? Endoscope was introduced through the ? mouth, and advanced to the third part ? of duodenum. The patient tolerated ? the procedure well. The upper GI ? endoscopy was accomplished without ? difficulty. The patient tolerated the ? procedure well. ? Findings: ? The examined duodenum was normal. ? The entire examined stomach was normal. ? The Z-line was regular and was found 40 cm from the ? incisors. ? The examined esophagus was normal. The esophagus was ? successfully injected with 100 units botulinum toxin ? (standard sclerotherapy needle dissolved in 2 cc ? normal saline; 10 separate injection of ~ 0.2 cc ? each). The first injection was delivered ? approximately 4 cm above the z-line and then in ? radial fashion more proximally.. ? Impression: ?- Normal examined duodenum. ? - Normal stomach. ? - Z-line regular, 40 cm from the ? incisors. ? - Normal esophagus. Injected with ? botulinum toxin. ? - No specimens collected. Recommendation: ?- Return to primary care physician as ? previously scheduled. ? Procedure Code(s): ?? --- Professional --- ? 76123, Esophagogastroduode noscopy, ? flexible, transoral; with directed ? submucosal injection(s), any substance CPT copyright 2016 [employer]. All rights reserved. The codes documented in this report are preliminary and upon magnetic resonance imaging coordinator review may be revised to meet current compliance requirements. Attending Participation: ? I personally performed the entire procedure. ? Justin Starkey MD 10/02/2016 1:30:59 PM This report has been signed electronically. Number of Addenda: 0 Note Initiated On: 10/02/2016 12:56 PM PROVATION 10/02/2016 12:5 6 PM EST Mary Alice Cage APRN GENERAL SURGICAL ORD ERABLES PROVATION documented in this encounter Visit Diagnoses Not on filedocumented in this encounter Administered Medications Inactive Administered Medications - up to 3 most recent administrations Medication Order MAR Action Action Date Dose Rate Site botulinum toxin type A (BOTOX) injection ONCE PRN, Starting on Sat10/02/16 at 1315, Until Sat10/02/16 at 1652, Intra-Operative (Intra-Procedure), Routine Given 10/02/2016 1:15 PM EST 100 Units lactated ringers infusion 50 mL/hr, Intravenous, CONTINUOUS, Starting on Sat10/02/16 at 1300, Until Sat10/02/16 at 1452, Endoscopy (Day of Procedure) New Bag 10/02/2016 1:00 PM EST 50 mL/hr 50 mL/hr documented in this encounter Active and Recently Administered Medications Times are shown in EST. Continuous Medication Order 09/30/2016 10/01/2016 10/02/2016 lactated ringers infusion (CANCELED) 50 mL/hr, Intravenous, CONTINUOUS, Starting on Sat10/02/16 at 1300, Until Sat10/02/16 at 1452, Endoscopy (Day of Procedure) 1300 (New Bag - Prov ider: Virgie Lopez RN)1332 (Anesthesia Volume Adjustment - Provider: Re Palmer CRNA) PRN Medication Order 09/30/2016 10/01/2016 10/02/2016 botulinum toxin type A (BOTOX) injection (CANCELED) ONCE PRN, Starting on Sat10/02/16 at 1315, Until Sat10/02/16 at 1652, Intra-Operative (Intra-Procedure), Routine 1315 (Given - Provid er: Justin Starkey MD) documented in this encounter Care Teams Transportation Officer Relationship Specialty Start Date End Date Mary Alice Cage APRN PCP - General 10/12/11 11/12/18 documented as of this encounter
--- OUTSIDE RECORDS SUMMARY | 2024-03-17 18:30 | XMS_ITS | Encounter Summary ---
Author Organization [facility] [address] Care Team Providers Care Rn Quality Name Role Phone [place]stoneMary Alice davsi Rajendra ROY Primary Care Provider [phone] Reason for Visit * Reason Onset Date Comments Appointment 09/18/2017 schedule appt Encounter Details Date Type Department Care Team (Late st Contact Info) Description 09/18/2017 Telephone [place] [id number] Marcos Manley II Appointment (schedule appt ) Social History Tobacco Use Types Packs/Day [...] encounter Miscellaneous Notes * Telephone Encounter - Marcos Manley II - 09/18/2017 12:49 PM EST Called Poppy to schedule her for her f/u appt w/ Dr. Holloway. Target date is around 01/11/18 documented in this encounter Plan of Treatment Not on file documented as of this encounter Visit Diagnoses Not on filedocumented in this encounter Care Teams Rn Quality Relationship Specialty Start Date End Date Mary Alice Cage APRN PCP - General 10/12/11 11/12/18 documented as of this encounter
--- OUTSIDE RECORDS SUMMARY | 2024-03-17 18:30 | XMS_ITS | Encounter Summary ---
Author Organization [facility] [place] [address] Care Team Providers Care Front Desk Clerk Name Role Phone Mary Alice Cage MANUELA Primary Care Provider Encounter Details Date Type Department Care Team (Latest Contact Info) Description 10/02/2016 11:45 AM EST - 10/02/2016 2:52 PM EST Hospital Encounter [place] [address] Justin Starkey MD [facility] [place] [address] Discharge Disposition: Home Social History Tobacco Use [...] Sign Reading Time Taken Comments Blood Pressure 106/72 10/02/2016 1:35 PM EST Pulse 81 10/02/2016 1:35 PM EST Temperature - - Respiratory Rate 16 10/02/2016 1:35 PM EST Oxygen Saturation 97% 10/02/2016 1:35 PM EST Inhaled Oxygen Concentration - - [...] occurs please contact your M.D. Please call [phone] before 5 pm with problems, questions or concerns. After 5pm call [phone] and ask to speak with the electric locomotive crane operator director validation. Discharge instructions reviewed with patient who expresses understanding. * Patient Instructions* Justin Starkey MD - 10/02/2016 1:24 PM EST Please see Recommendations in the Provation procedure report which is documented in the procedural note in E-DH. * Attachments The following attachments cannot be sent through Care Everywhere. * EGD (UPPER ENDOSCOPY): POST-OP ([place]) documented in this encounter Medications at Time [...] Inhalational Spacing Device Spcr 2 puffs by [facility].(Non-Drug; Combo Route) route daily. [...] 12/20/2016 sulfamethoxazole-trim ethoprim (BACTRIM DS) 800-160 mg TabletIndications:CALF SKINNER D, moderate TAKE ONE TABLET BY MOUTH [...] (10/02/2016 12:56 PM EST) UPPER GI ENDOSCOPY [facility] Endoscopy ___ Procedure Date: 10/02/2016 12:56 PM ? Patient Name: Poppy Mclaughlin ? Date of : 1960 ? Age: 56 ? Order #: [id number] ? Instrument Name: [id number] ? ___ Procedure: ? Upper GI endoscopy Indications: ? 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 neuromuscular dysfunction; need for ? botox injection; failed standard ? therapy Providers: ? Justin Starkey MD, Felipa Arshad. ? KAMLA Barrera, Davon Kiser RN Referring [...] Procedure Code(s): ?? --- Professional --- ? 28867, Esophagogastroduode noscopy, ? flexible, transoral; with directed ? submucosal injection(s), any substance CPT copyright 2016 [employer]. All rights reserved. The codes documented in this report are preliminary and upon rib cutter review may be revised to meet current [...] Action Action Date Dose Rate Site lactated ringers infusion 50 mL/hr, Intravenous, CONTINUOUS, [...] CONTINUOUS, Starting on Sat10/02/16 at 1300, Until Tu10/02/16 at 1452, Endoscopy (Day of Procedure) 1300 (New Bag - Prov ider: Virgie Lopez RN)1332 (Anesthesia Volume Adjustment - Provider: Re Palmer CRNA) PRN Medication Order 09/30/2016 10/01/201610/02/2016 botulinum toxin type A (BOTOX) injection (CANCELED) ONCE PRN, Starting on Sat10/02/16 at 1315, Until Sat10/02/16 at 1652, Intra-Operative (Intra-Procedure), Routine 1315 (Given - Provid er: Justin Starkey MD) documented in this encounter Care Teams Front Desk Clerk Relationship Specialty Start Date End Date Mary Alice Cage APRN PCP - General 10/12/11 11/12/18 documented as of this encounter
--- OUTSIDE RECORDS SUMMARY | 2024-03-17 18:30 | XMS_ITS | Encounter Summary ---
Author Organization [facility] [place] [address] Care Team Providers Care Molding Machine Operator Name Role Phone LefloreMary Alice davis Rajendra ROY Primary Care Provider [phone] Reason for Visit * Reason Comments Follow-up Encounter Details Date Type Department Care Team (Latest Contact Info) Description 08/21/2017 10:00 AM EST Office [place] [address] Osmany Keller MD [facility] [place] [address] Gastroesophageal reflux disease, esophagitis presence not specified; Non-cardiac chest pain; Esophageal dysmotility Social History Tobacco Use Types [...] Sign Reading Time Taken Comments Blood Pressure 151/76 08/21/2017 10:05 AM EST Pulse 79 08/21/2017 10:05 AM EST Temperature - - Respiratory Rate - - Oxygen Saturation - - Inhaled Oxygen Concentration - - Weight 86.7 kg (191 lb 3.2 oz) 08/21/2017 10:05 AM EST Height 152.4 cm (5') 08/21/2017 10:05 AM EST Body Mass Index 37.34 08/21/2017 10:05 AM EST documented in this encounter Progress Notes * Osmany Keller MD - 08/21/2017 10:00 AM EST HISTORY: Poppy Mclaughlin presents for consultation and further evaluation of dysphagia Having trouble again with solids and liquids Did well with Botox injection for about 9 months, now at 11. She thinks she is ready for repeat injection. Had hi res manometry for nutcracker. SOLID GASTRIC EMPTYING SCAN, 12/11/11: INDICATION: Dyspepsia. Question gastroparesis. COMPARISON: None. TECHNIQUE: A standard solid meal was labeled with 0.5 mCi of technetium-99m sulfur colloid and then ingested by the patient. Anterior and posterior images of the abdomen were then obtained immediately, and at one hour, two hours, and four hours later. Quantitative analysis was then performed. A region of interest was drawn around the stomach and then decay-corrected time-activity plotted. FINDINGS: Activity is initially seen within the stomach and then moves into the bowel. At two hours, approximately 16% of the ingested meal remains within the stomach (normal less than 60%). At four hours, approximately 3% of the ingested meal remains within the stomach (normal less than 10%). IMPRESSION IMPRESSION: Normal solid gastric emptyingPAST MEDICAL HISTORY 1. COPD; on home oxygen [...] 5. Left hand surgery April 2017, [facility].. 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 Has developed recurrent symptoms. We reviewed setting up upper endoscopy for another treatment. Has IBS Has had normal gastric emtying study 30 of 45 minutes spent in direct face to face counseling and the rest in taking history PLAN: Upper endoscopy with BOTOX Consider swallowed smooth muscle relaxants, including peppermint. Osmany Keller MD Section of Gastroenterology and Hepatology documented in this encounter Plan of Treatment Not on file documented as of this encounter Visit Diagnoses Diagnosis Gastroesophageal reflux disease, esophagitis presence not specified Non-cardiac chest pain Other chest pain Esophageal dysmotility Dyskinesia of esophagus documented in this encounter Care Teams Molding Machine Operator Relationship Specialty Start Date End Date Mary Alice Cage APRN PCP - General 10/12/11 11/12/18 documented as of this encounter
--- OUTSIDE RECORDS SUMMARY | 2024-03-17 18:30 | XMS_ITS | Encounter Summary ---
[place] [address] Care Team Providers Care Special Education Itinerant Teacher Name Role Phone KayMary Alice davis Rajendra ROY Primary Care Provider [phone] Reason for Visit * Reason Onset Date Comments Prior Authorization 10/10/2017 Encounter Details Date Type Department Care Team (Late st Contact Info) Description 10/10/2017 Telephone [place] [id number] Gardenia Bueno CMA GASTROENTEROLOGY DEPT Prior Authorization [...] encounter Miscellaneous Notes * Telephone Encounter - Lyndsey Alejandro RN - 10/14/2017 1:09 PM EST Received call from patient stating I've been trying to get my medication, Viberzi. Call placed topatient; received voice mail. LVMM letting her know that PA approved and she should be able to fillmedication now. * Telephone Encounter - Gardenia Bueno CMA - 10/10/2017 10:10 AM EST Medication Prior Authorization 4L Gastroenterology / [place] [address] Subscriber Insurance: [employer] Phone: Fax: Physician: Osmany Keller [place] [facility] [place] Medication Requested: Viberzi Strength: 100 mg Frequency: BID Disp.: 60 Refills: 5 Currently taking: yes Diagnosis for this medication: IBS-D ICD-10 code: K58.0 Prior medications trialed in this patient: xifaxan,lomotil, imodium Medication: Outcome/Adverse Reactions: treatment failure Decision: Per cover my meds: Request Reference Number: [id number]. VIBERZI TAB 100MG is approved through 04/12/2018. For further questions, call . Tracking number/Case number/Reference number: Effective date: Start: End: documented in this encounter Plan of Treatment Not on file documented as of this encounter Visit Diagnoses Not on filedocumented in this encounter Care Teams Special Education Itinerant Teacher Relationship Specialty Start Date End Date Mary Alice Cage APRN PCP - General 10/12/11 11/12/18 documented as of this encounter
--- OUTSIDE RECORDS SUMMARY | 2024-03-17 18:30 | XMS_ITS | Encounter Summary ---
Author Organization [facility] [place] [address] Care Team Providers Care Manager Systems Name Role Phone TallahatchieMary Alice davis Rajendra ROY Primary Care Provider [phone] Reason for Visit * Reason Comments Follow-up Encounter Details Date Type Department Care Team (Late st Contact Info) Description 10/03/2016 3:30 PM EST Office [place] [address] Osmany Holloway MD [facility] [place] [address] COPD, moderate Social History Tobacco Use Types [...] Sign Reading Time Taken Comments Blood Pressure 105/77 10/03/2016 2:38 PM EST Pulse 91 10/03/2016 2:38 PM EST Temperature - - Respiratory Rate - - Oxygen Saturation - - Inhaled Oxygen Concentration - - Weight 84.4 kg (186 lb) 10/03/2016 2:38 PM EST Height 154.4 cm (5' 0.8) 10/03/2016 2:38 PM EST Body Mass Index 35.38 10/03/2016 2:38 PM EST documented in this encounter Progress Notes * Osmany Holloway MD - 10/03/2016 3:30 PM EST PULMONARY MEDICINE Follow-Up Follow-up 56 y.o. female with dyspnea, diaphragmatic weakness, with cervical nerve compression (s/psurgery) at multiple levels. Always has cough, sputum, wheezing. Still smoking 1ppd. Sputum has been brown and copious, mostly in the morning. PAST MEDICAL HISTORY: Patient Active Problem List [...] Outpatient Prescriptions Marked as Taking for the 10/03/16 encounter (Office Visit) with Osmany Holloway MD Medication Sig Dispense Refill ??? dexlansoprazole (DEXILANT) 60 mg Cap, Delayed Rel., Multiphasic Take 1 capsule by mouth daily. 30 capsule 11 ??? glycopyrrolate (ROBINUL) 1 mg Tablet Take 1 tablet by mouth 2 times daily. 60 tablet 11 ??? [DISCONTINUED] eluxadoline 100 mg Tablet Take 100 mg by mouth 2 times daily. 60 tablet 5 ??? dicyclomine (BENTYL) 10 mg Capsule TAKE ONE CAPSULE BY MOUTH 4 TIMES DAILY 360 capsule 3 ??? baclofen (LIORESAL) 10 mg Tablet ??? meloxicam (MOBIC) 7.5 mg Tablet ??? lisinopril (PRINIVIL;ZESTRIL) 10 mg Tablet Take 2 tablets by mouth daily. 60 tablet 11 ??? hydroCHLOROthiazide (HYDRODIURIL) 25 mg Tablet Take 1 tablet by mouth daily. 30 tablet 12 ??? [DISCONTINUED] sulfamethoxazole-trimethoprim (BACTRIM DS) 800-160 mg Tablet TAKE ONE TABLET BY MOUTH TWICE DAILY FOR 10 DAYS 20 tablet 0 ??? SYMBICORT 160-4.5 mcg/actuation HFA Aerosol [...] 2 times daily. 60 tablet 5 ??? Miscellaneous Medical Supply [facility] Face mask for nocturnal O2 1 each PRN ??? simvastatin (ZOCOR) 20 mg Tablet Take 20 mg by mouth nightly. ??? OXYGEN-AIR DELIVERY SYSTEMS ([facility]GEN [facility]) by [facility].(Non-Drug; Combo Route) route nightly. ??? chlorpheniramine (CHLOR-TRIMETON) 4 mg Tablet Take 4 mg by mouth every 6 hours as needed for Allergies. ??? atenolol (TENORMIN) 25 mg Tablet Take 25 mg by mouth daily. ??? fluconazole (DIFLUCAN) 100 mg Tablet Take 1 tablet by mouth daily. 5 tablet 3 ??? BUDESONIDE/FORMOTEROL FUMARATE (SYMBICORT INHL) Inhale 2 [...] Inhalational Spacing Device Spcr 2 puffs by [facility], [...] 24 hrs Temperature Heart Rate Heart Rate: 91 Heart Rate: [91] Blood Pressure BP: 105/77 BP: (105)/(77) Respiratory Rate Resp: -- SpO2 SpO2: -- WDWN 56 y.o. female in NAD. HEENT-NC/AT; unremarkable Neck-supple without masses or, nodes Chest- quiet BS with rhonchi bilat Heart-Normal rate and rhythm, without murmers, gallops, or rubs. Abdomen-benign without organomegaly or tenderness Extremities-no cyanosis, clubbing; tr LE edema Skin-no rashes or lesions Musculoskeletal-no joint swelling, tenderness, redness or deformities Neurologic-Nonfocal, without weakness or sensory deficits Lymphatics-unremarkable PFTs were performed today and my interpretation is as follows: FVC 2.26L (74% pred); FEV1 1.62L (67% pred); FEV1/FVC 72%. Normal TLC but elevated RV. Diffusing capacity of 58% pred. C/W restrictive lung disease, improved since previous study. IMPRESSION: In summary, this is a 56 y.o. female with restrictive lung physiology, primarily extraparenchymal, with elevated residual volume, significant sputum production. ECHO was normal with normal PAS. Discussed ACT with aerobika and Humibid. F/U 6 mo w/PFTs. Greater than 10 min of this 15 minute visit was spent in face to [...] moderate Chronic airway obstruction, not elsewhere classified COPD, moderate Chronic airway obstruction, not elsewhere classified documented in this encounter Care Teams Manager Systems Relationship Specialty Start Date End Date Mary Alice Cage APRN PCP - General 10/12/11 11/12/18 documented as of this encounter
--- OUTSIDE RECORDS SUMMARY | 2024-03-17 18:30 | XMS_ITS | Encounter Summary ---
Author Organization [facility] [place] [address] Care Team Providers Care Senior Vice President & General Counsel Name Role Phone Mary Alice Cage APRN Primary Care Provider Reason for Visit * Reason Comments Medication Refill Encounter Details Date Type Department Care Team (Late st Contact Info) Description 07/07/2016 [place] [address] Osmany Holloway MD [facility] [place] [address] COPD, moderate Social History Tobacco Use Types [...] classified documented in this encounter Care Teams Senior Vice President & General Counsel Relationship Specialty Start Date End Date Mary Alice Cage APRN PCP - General 10/12/11 11/12/18 documented as of this encounter
--- OUTSIDE RECORDS SUMMARY | 2024-03-17 18:30 | XMS_ITS | Encounter Summary ---
Author Organization [facility] [place] [address] Care Team Providers Care Cognos Architect Name Role Phone [place]aneMary Alice davis Rajendra ROY Primary Care Provider [phone] Reason for Visit * Reason Comments Follow-up Encounter Details Date Type Department Care Team (Latest Contact Info) Description 05/21/2017 10:00 AM EDT Office Visit [place] [address] Jutsin Starkey MD [facility] DR [place] [address] Gastroesophageal reflux disease, esophagitis presence not specified; Small intestinal bacterial overgrowth; Irritable bowel syndrome with diarrhea; Nutcracker esophagus Social History Tobacco Use Types Packs/Day Years [...] Sign Reading Time Taken Comments Blood Pressure 137/78 05/21/2017 9:48 AM EDT Pulse 88 05/21/2017 9:48 AM EDT Temperature - - Respiratory Rate - - Oxygen Saturation - - Inhaled Oxygen Concentration - - Weight 86.8 kg (191 lb 6.4 oz) 05/21/2017 9:48 A M EDT Height 154.9 cm (5' 1) 05/21/2017 9:48 AM EDT Body Mass Index 36.16 05/21/2017 9:48 AM EDT documented in this encounter Progress Notes * Justin Starkey MD - 05/21/2017 10:00 AM EDT GI FOLLOWUP Poppy Mclaughlin Female, 56 y.o., 1960 , SR None PCP: Mary Alice Cage APRN REASON FOR VISIT This is a very nice 56-year-old woman who returns today for routine followup appointment. LAST VISIT I last saw her on 09/13/16. Her GI issues are those of reflux, nutcracker esophagus, IBS with diarrhea and symptoms of gas and bloating related to methane overproduction. ON REVIEW TODAY Reflux symptoms are minimal by following lifestyle modifications and taking Dexilant at 60 mg q.a.m. She has not had any side effects on that medication. For IBS with diarrhea, eluxadoline 100 mg twice daily has continued to work well for her. She has not had any side effects. She now generally hasa bowel movement every day or a bowel movement every other day. This is in contrast to when I firstmet her when she was having up to 10 bowel movements per day. In terms of her nutcracker esophagus,the Botox injection in September worked quite well; she denied any side effects. She is having a fewissues now, but this is dramatically better than in the past. Finally, in terms of gas and bloating, the trial of Bactrim did not provide any significant relief. Her weight is stable at 191 pounds (although overweight). She notes that she saw her PCP in the last few months; blood work was apparently normal. I do not have a copy of those results. A hemoglobin A1c was reportedly normal at 6.3. We had a nice discussion about her symptoms; a treatment plan is outlined below. Questions were answered. ALLERGIES/ADR See eD-H; reviewed. MEDICATIONS See eD-H; [...] ribs - occurred after fall April 2017. PAST SURGICAL HISTORY 1. Emergency hernia repair May 2011, [facility]. 2. Cholecystectomy 11/24/12. 3. Cervical spine fusion surgery August 2013. 4. Lumbar discectomy 08/2014. 5. [facility]. HABITS Positive tobacco. No alcohol for lcrd-mbn-l-half years. FAMILY HISTORY Noncontributory. No first-degree family member with a history of IBD, celiac disease, or any type of GI malignancy. SOCIAL HISTORY for 14 years, not currently working, applying for disability. One vaginal delivery with episiotomy. RECENT TESTING 1. Colonoscopy, [facility]: normal approximately [...] EGD 10/26/15: normal; Z-line at 41. 9. Zmdfp-ejxic-twhi wireless pH capsule 10/26/15 to 10/28/15 off PPI therapy: DeMeester score of 19.2on day one and 13.0 on day two. 10. EGD with Botox injection of the esophagus for treatment of nutcracker esophagus 10/02/16. MEDICATION/DIET TRIALS 1. Neomycin - no help. [...] no significant help with gas and bloating. PHYSICAL EXAM Height 5 feet 1 inch, weight 191 pounds. See eD-H for vital signs. HENT: Pupils reactive to light, anicteric. Oropharynx clear without lesions. Neck supple without lymphadenopathy. Chest: Decreased breath sounds at bases. No wheezes. Cor: Regular rate and rhythm. Abdomen: Rounded, soft. Bowel sounds present. Spleen tip not felt. Liver edge non-nodular, nontender. No obvious masses, rebound, guarding, ascites. Extremities: reveal 2+ radial pulses. ALLERGIES See eD-H; reviewed. MEDICATIONS See eD-H; reviewed. IMPRESSIONS/RECOMMENDATIONS 1. Follow up with PCP as scheduled. 2. Lifestyle modifications for PRO. 3. Dexilant 60 mg q.a.m.; she is up to date on that prescription. 4. IBS with diarrhea. Lifestyle modifications, low-fiber diet, eluxadoline at 100 mg p.o. twice daily. A new prescription was provided. 5. Nutcracker esophagus. Trial of sublingual nitroglycerin at 0.3 mg. Patient warned of possible side effects. If that does not help, she will contact us and we can schedule repeat EGD with Botox injection. 6. For gas and bloating related to methane overproduction, trial of Augmentin twice daily for 10 days; this prescription was faxed to her pharmacy. 7. No specialized tests have been scheduled. 8. The patient is aware that I am leaving [facility]. She would like to follow up with Dr. Ramirez she initially saw at [facility] and who then referred her to Ms. O???Sarah and then to me. TIME SPENT WITH PATIENT Total Minutes: 40 Minutes of Kmmg-qu-Nuar Counseling: Greater than 35 minutes were spent in ukrd-cx-syus counseling and coordination of care. Justin Starkey, PhD, MD java analyst, [employer] Chief, Section of Gastroenterology and Hepatology [facility] [place] [address] V: [phone] F: [phone] MICKY/mian CC/EC: PCP - staff msg copy 05/24/17 [facility] GI Tanning Salon Attendant - staff msg copy 05/24/17 documented in this encounter Plan of Treatment Not on file documented as of this encounter Visit Diagnoses Diagnosis Gastroesophageal reflux disease, esophagitis presence not specified Small intestinal bacterial overgrowth Irritable bowel syndrome with diarrhea Irritable bowel syndrome Nutcracker esophagus Dyskinesia of esophagus documented in this encounter Care Teams Cognos Architect Relationship Specialty Start Date End Date Mary Alice Cage APRN PCP - General 10/12/11 11/12/18 documented as of this encounter
--- OUTSIDE RECORDS SUMMARY | 2024-03-17 18:30 | XMS_ITS | Encounter Summary ---
[place] [address] Care Team Providers Care Photographic Lithographer Name Role Phone CraneMary Alice davis MANUELA Primary Care Provider [phone] Encounter Details Date Type Department Care Team (Late st Contact Info) Description 03/05/2017 Telephone Sleep Center at [address] [address] Shobha Duke APRN [facility] [place] [address] Social History Tobacco Use Types Packs/Day Years [...] Telephone Encounter - Shobha Duke APRN - 03/05/2017 4:47 PM EDT Reviewed [facility] consultation notes today. As patient has continued symptoms that very strongly suggest ELO, recommend we try another diagnostic study (no split). Called patient, left voicemail on mobile phone, asking if she is interested. Asked her to call us or else email at [facility]. MANUELA FRANK Sleep Medicine documented in this encounter Plan of Treatment Not on file documented as of this encounter Visit Diagnoses Not on filedocumented in this encounter Care Teams Photographic Lithographer Relationship Specialty Start Date End Date Mary Alice Cage APRN PCP - General 10/12/11 11/12/18 documented as of this encounter
--- OUTSIDE RECORDS SUMMARY | 2024-03-17 18:30 | XMS_ITS | Encounter Summary ---
Author Organization [facility] [place] [address] Care Team Providers Care Strap Setter Name Role Phone NilesMary Alice Rajendra ROY Primary Care Provider Reason for Referral * Physical Therapy (Routine) - Closed Specialty Diagnoses / Procedures Referred By Chava alejo Referred To Contact Diagnoses Chronic bilateral low back pain with right-sided sciatica Jessy Olivera [facility] [place] [address] Unknown None Referral ID Status Reason Start Date Expiration Date V isits Requested Visits Authorized [id number] Closed Evaluate and Treat 05/16/2016 11/12/2016 24 24 Reason for Visit * Reason Comments Pain Management Back Pain Encounter Details Date Type Department Care Team (Late st Contact Info) Description 05/16/2016 8:00 AM EDT Office [place] [address] Jessy Olivera [facility] [place] [address] Chronic bilateral low back pain with right-sided sciatica; Facet arthropathy, lumbar Social History Tobacco Use Types Packs/Day Years [...] Sign Reading Time Taken Comments Blood Pressure 153/84 05/16/2016 7:51 AM EDT Pulse 88 05/16/2016 7:51 AM EDT Temperature - - Respiratory Rate - - Oxygen Saturation 97% 05/16/2016 7:51 AM EDT Inhaled Oxygen Concentration - - Weight 88.8 kg (195 lb 12.8 oz) 05/16/2016 7:51 AM EDT Height 152.4 cm (5') 05/16/2016 7:51 AM EDT Body Mass Index 38.24 05/16/2016 7:51 AM EDT documented in this encounter Patient Instructions * Patient Instructions* Jessy Olivera APRN - 05/16/2016 8:00 AM EDT - Referral for physical therapy for stretching muscles out - Try to increase physical activity a small amount each day - I am recommending the following things, please discuss with your primary care provider: - Increase gabapentin dose at night to 600mg (if kidney function allows) - Consider muscle relaxant at bedtime - Consider ordering hip x-rays and referral to orthopedics for possible hip injections, treatments,etc. - May consider medical cannabis in the future, but may be difficult financially because insurance does not cover it documented in this encounter Progress Notes * Jessy Olivera APRN - 05/16/2016 8:00 AM EDT PAIN CLINIC FOLLOW-UP DATE OF VISIT 05/16/2016 Patient Poppy Mclaughlin 1960 REFERRING PROVIDER Mary Alice Domingo APRN [address] [place] [address] PRIMARY CARE PROVIDER MARY ALICE DOMINGO APRN CHIEF COMPLAINT: Chronic pain management follow-up HPI: Poppy Mclaughlin is a 55 year-old female who has been seen a few times in the past in the [facility] for various injections. She has chronic low back and leg pain. She had a right L4-[address] diske[place] [address] Anderson with good relief of her symptoms until about December 2015. At that time she was having episodes of syncope and subsequently injured her back. She followed up with Dr. Anderson in February 2016 and he recommended pain clinic evaluation for injection options and physical therapy. She had a caudal LESI on 03/27/[address] Hartman. Following the procedure, she called to report profuse sweating, low grade fever, and blood sugars in the 220s- she was advised to present to the [facility] ED for evaluation. She went to [facility] and states that they gave her meds (she thinks morphine) and I had all kinds of tests. She reports that they did not find anything concerning, andthey were able to reduce her blood sugar. INTERVAL HISTORY: ED visits, hospitalizations, new medical problems or surgeries since previous visit? Yes, see above-- went to ED Changes in family, social, or functional history since previous visit? No - Still feeling clicking in her mid back and snapping in her hips. - Has not had any relief from the LESI. - States that she overdid it this weekend- went to a [place]. She reports that she hurts all over now and even her feet hurt. PAIN ASSESSMENT: - Constant low back pain, radiates into bilateral buttocks and hips and right lateral thigh to anterior calf to first three toes, hips feel like they are popping- I can actually hear it snap - Stiffness in bilateral mid to low back and bilateral hips - Denies numbness and tingling; some weakness in both legs (R>L) - No saddle anesthesia - Aggravated by: walking, moving, squatting - Alleviated by: laying down on side relieves the pressure - Average pain in past week: 03/21 MEDICATIONS Medications 05/16/16 0802 Medication Sig Taking? SYMBICORT 160-4.5 mcg/actuation HFA Aerosol Inhaler Inhale 2 puffs into the lungs 2 times daily. Yes rOPINIRole (REQUIP) 2 mg Tablet Take 2 mg by mouth nightly. Yes gabapentin (NEURONTIN) 300 mg Capsule Take 300 mg by mouth 3 times daily. Yes oxyCODONE (ROXICODONE) 10 mg Tablet Take 10 mg by mouth 3 times daily. Yes albuterol (PROVENTIL) 2.5 mg /3 mL (0.083 %) Solution for Nebulization Take 2.5 mg by nebulization every 4 hours as needed for Wheezing. Yes eluxadoline 100 mg Tablet Take 100 mg by mouth 2 times daily. Yes DEXILANT 60 mg Cap, Delayed Rel., Multiphasic TAKE ONE CAPSULE BY MOUTH ONCE DAILY Yes Miscellaneous Medical Supply [facility] Face mask for nocturnal O2 Yes HYDROcodone-acetaminophen (VICODIN) 5-300 mg Tablet Take 1 tablet by mouth every 4 hours. 10 mg Yes simvastatin (ZOCOR) 20 mg Tablet Take 20 mg by mouth nightly. Yes OXYGEN-AIR DELIVERY SYSTEMS ([facility]) by [facility].(Non- Drug; Combo Route) route nightly. Yes chlorpheniramine (CHLOR-TRIMETON) 4 mg Tablet Take 4 mg by mouth every 6 hours as needed for Allergies. Yes dicyclomine (BENTYL) 10 mg Capsule Take 1 capsule by mouth 4 times daily. Yes atenolol (TENORMIN) 25 mg Tablet Take 25 mg by mouth daily. Yes fluconazole (DIFLUCAN) 100 mg Tablet Take 1 tablet by mouth daily. Yes spironolactone (ALDACTONE) 25 mg Tablet Take 25 mg by mouth daily. Yes lisinopril (PRINIVIL;ZESTRIL) 10 mg Tablet Take 1 tablet by mouth daily. Yes BUDESONIDE/FORMOTEROL FUMARATE (SYMBICORT INHL) Inhale 2 puffs into the lungs every 12 hours. Yes diphenoxylate-atropine (LOMOTIL) 2.5-0.025 mg Tablet Take [...] hours as needed. Use with spacer Yes ibuprofen (ADVIL;MOTRIN) 800 mg Tablet Take 800 mg by mouth 3 times daily. Yes acetaminophen (TYLENOL) 500 mg Tablet Take 1,000 mg by mouth 3 times daily. Yes Inhalational Spacing Device Spcr 2 puffs by [facility].(Non-Drug; Combo Route) route daily. Yes fluticasone (FLONASE) 50 mcg/actuation nasal spray USE ONE SPRAY IN EACH NOSTRIL TWICE DAILY Yes ipratropium (ATROVENT) 0.06 % nasal spray USE TWO SPRAYS BY NASAL ROUTE 4 TIMES DAILY Yes BUPROPION HCL (WELLBUTRIN ORAL) Take 150 mg by mouth 2 times daily. Yes promethazine (PHENERGAN) 25 mg tablet Take 25 mg by mouth every 6 hours as needed. Yes cholecalciferol, Vitamin D3, 400 unit tablet Take 400 Units by mouth daily. Yes MULTIVITAMIN ORAL Take 2 tablets by mouth daily. Yes VITAMIN B COMPLEX ORAL Take 1 tablet by mouth. Yes ASCORBATE CALCIUM (VITAMIN C ORAL) Take 2 tablets by mouth daily. Yes loratadine (CLARITIN) 10 mg tablet Take 10 mg by mouth daily. Yes guaiFENesin (ROBITUSSIN) 100 mg/5 mL syrup Take 200 mg by mouth 3 times daily as needed. Yes citalopram (CELEXA) 40 mg tablet Take 1 tablet by mouth daily. Yes [place] and [place] Prescription Monitoring Program were checked and no concerns were identified. -- Oxycodone 10mg, three tabs/day, prescribed by KIARA Villanueva (last filled on 05/04/16). ADVERSE DRUG REACTIONS Allergies as of 05/16/2016 - Review Complete 05/16/2016 Allergen Reaction Noted ??? Pneumococcal vaccine Other (See Comments) 11/18/2014 ??? Albuterol Other (See Comments) 11/09/2011 ??? Egg Nausea And Vomiting 05/26/2012 CURRENT THERAPIES: - Oxycodone 10mg tid (prescribed by her PCP) - Gabapentin 300mg tid -- has never tried to increase it - Ibuprofen 800mg 2-3 times per day prn - Tylenol 1g 2-3 times per day prn - Bengay prn- doesn't relieve the pain PAST THERAPIES: - Vicodin - Caudal LESI 03/27/16 - L4-5 diskectomy in 2014 - Physical therapy -- last time I did physical therapy was after my diskectomy and I failed REVIEW OF SYSTEMS: Constitutional: denies fever, + chills with pain, denies weight changes, fatigue HEENT: denies headaches, vision changes, difficulty hearing Cardiac: denies chest pain or palpitations Lungs: + shortness of breath on exertion, denies wheezing, cough GI: denies constipation or diarrhea, nausea or vomiting, black or bloody stool, loss of control of bowel : + urgency, no incontinence Neuro: denies changes in attention or orientation; denies dizziness, seizures, tremors Muscloskeletal: denies joint swelling, use of ambulatory aide, + fall this week after leaning on her table (no injuries) Skin: denies open sores or rashes, pruritis Psychological/Mood: all right; they say I have anxiety and depression- does not see counselor; nosuicidal/homicidal ideations Sleep: uncomfortable, interrupted due to sleep FUNCTIONAL /SOCIAL Lives with: Work: disabled Interference with activities/ADL: able to care for self Exercise/activities: walks <100 feet daily without stopping RISK ASSESSMENT Smoking: current, 1ppd Alcohol: no Other drugs: no PHYSICAL EXAMINATION Body mass index is 38.24 kg/(m^2). Visit Vitals ??? Wt 88.8 kg (195 lb 12.8 oz) No flowsheet data found. Appearance/ Behavior Well groomed, good eye contact, relaxed, cooperative, normal speech, no acute distress. Seen alone. HEENT Sclera non-icteric, conjunctiva clear. Hearing grossly intact. Focused Musculoskeletal/Neurologic LUMBAR SPINE EXAMINATION: Inspection: Scar: Yes lumbar, consistent with stated surgery; Scoliosis: No; Obvious rash or infection: No Gait:normal gait and station and normal balance Range of motion: restricted with lumbar spine flexion, extension Left Right Muscle spasm/pain Yes, far lateral flank area Yes, far lateral flank area Sacroiliac joint tenderness No No Facet joint tenderness Yes Yes Tolbert's test (facet loading) Positive Positive Paraspinous region tenderness Yes Yes Heel walk Normal Normal Toe walk Normal Normal Straight leg raise negative negative HIP EXAMINATION: Left Right Range of motion restricted with internal and external rotation. restricted with internal and external rotation. Groin pain with range of motion? Negative Positive Trochanteric bursa tenderness? Negative Negative Psoas tenderness? Negative Negative Piriformis muscle tenderness Positive Positive Motor: Segment Muscle Action R L L3 Quadriceps Knee extension 5 /5 5/5 L4,5 Hamstring Knee Flexion 5/5 5 /5 L4 Tibialis anterior Dorsiflexion 5/5 5 /5 L5 Extensor hallucis Great toe extension 5/5 5 /5 S1 Gastrocnemius, FHL Plantar flexion 5/5 5/5 Hip ADduction 5/5 5/5 Hip ABduction 5/5 5/5 * exam limited by pain Reflexes: Segment Tendon Right Left L4 Patellar 1+ 1+ S1 Achilles 1+ 1+ Sensory: Light Touch (0=absent, 1-impaired, 2=normal) Segment location Right Left L1 upper inner thigh 2 2 L2 mid-ant thigh 2 2 L3 med femoral condyle 2 2 L4 medial mal 1 1 L5 dorsum foot, 3rd MT 1 1 S1 lat heel 2 2 S2 Popliteal fossa 2 2 Negative Hoffmans, no clonus, Babinski with downward going toes. Skin No rashes or lesions noted. 4x4cm areas in low back with some purple capillaries visible (states she may have hit her back during her most recent fall). Peripheral Vascular Skin is warm and well-perfused, +2 palpable radial pulses bilaterally. RADIOGRAPHIC STUDIES I have personally reviewed images from the following studies: Lumbar Spine MRI 02/27/16 FINDINGS: The study is moderately marred by patient motion. The grade I anterolisthesis of L5 with respect to S1 shows no interval alteration.. There is mild levoconvex scoliosis of the lumbar spine without change. Alignment is otherwise normal. There appearances of the intervertebral discs show no interval alteration. Marrow signal is unchanged. The conus medullaris is unchanged in contour and signal characteristics terminating the level of upper L3 At L1-2 and L2-3 there is no disc herniation or evidence of nerve root impingement. At L3-4 there is mild bilateral facet arthropathy greater on the right producing mild right neural foramen narrowing. At L4-5 there is a circumferential disc bulge and mild bilateral facet arthropathy. There is complete effacement of the fat within the neural foramen but this tissue shows abnormal enhancement and likely represents granulation tissue. No more than a small recurrent disc herniation is evident though visualization is difficult given the image quality. At L5-S1 there is marked bilateral facet arthropathy greater on the right. There is a circumferential disc bulge which combines with the facet arthropathy produce moderate bilateral neural foramen narrowing without change. IMPRESSION Interval development of abnormal enhancing material about the lateral aspect of the right L4-5 neural foramen most likely representing scar tissue. No evidence of recurrent disc herniation at this site or new disc herniation elsewhere in the lumbar spine. Lumbar Spine X-ray 02/27/16 FINDINGS: There are five nonrib-bearing lumbar-like vertebrae. Mild levoconvex lumbar scoliosis is unchanged. Vertebral body height and vertebral body alignment of L1-L5 is normal. There has been an interval increase in the degree of anterior spondylolisthesis of L5 upon S1 which is now approaching a grade 2. I do not see a definite spondylolisthesis at this level. Facet joint hypertrophy and sclerosis are present at L4-L5 and L5-S1. Calcification is seen in the lower abdominal aorta and common iliac arteries. IMPRESSION Interval increase in degree of anterior spondylolisthesis of L5 upon S1. ASSESSMENT Ms. Mclaughlin has chronic low back pain and right leg radiculopathy consistent with lumbar degenerative changes, including spondylosis, facet arthropathy, and degenerative disc disease. She had had a diskectomy at the right L4-5, but her symptoms have returned. She had an adverse reaction following a caudal LESI on 03/27, during which her blood sugars were elevated, she had profuse sweating, and she had a low grade fever. On physical exam today, she has no concerning findings for myelopathy or infection. She does have what resembles a healing bruise in her low back, but she cannot recall if she injured her back during a fall she had this week. Her muscles are very tight, and she does have indica tions of facet arthropathy as a pain generator as well. At this time, I am hesitant to recommend any further injections due to the reaction she had after the last steroid injection. I have recommended a combination of more conservative treatments for her back pain at this time. She complains of popping and pain in her bilateral hips, and she goes have groin pain with SANCHEZ maneuver on the right. She has not had her hips evaluated yet. PLAN/RECOMMENDATIONS 1. Referral given for physical therapy, to review stretching exercises for the muscles in her low back and buttocks. I have also encouraged her to increase her physical activity level a little bit each day, as she was very stiff today. I discussed the importance of daily exercise and stretching in managing chronic pain. 2. She advised me that she is seeing her primary care provider next week. I have discussed the following recommendations with Ms. Mclaughlin. I explained that I would feel more comfortable if her primarycare provider assesses whether she feels that Ms. Mclaughlin would tolerate/benefit from the following recommendations, since this is our first office visit with her today and she expresses that she has many other comorbidities. - Consider increasing gabapentin nighttime dose to 600 mg. I have reviewed her most recent BMP (03/19/16) and it looks as though her GFR is 47 and her BUN is slightly elevated. If her renal function remains declined, may consider changing from three times/day dosing to two times/day dosing, and increasing to 600mg two times/day. - Consider switching from ibuprofen to a different NSAID such as meloxicam or Celebrex. - Consider adding a muscle relaxant at night while she is participating in physical therapy. - Consider ordering bilateral hip x-ray and referral to orthopedics for treatment if there are significant findings. She has groin pain and limited range of motion with internal and external rotationof her hips, and she also reports popping of her hips. These indicate that she may have some osteoar thritis of her hip. 3. We may consider LMBB with RFA in the future if she continues to have significant pain after implementing the conservative treatments listed above. Because she was so sensitive to her last steroid injection, I would not recommend repeating LESI or steroid injections on her back in the future. I have discussed degenerative changes and arthritis in the spine using anatomical models- I have reassured her that popping in the back is a common complaint with osteoarthritis of the spine. 4. Follow up as needed. Poppy Mclaughlin had the opportunity to ask questions and indicated that all questions were answeredto her satisfaction. Jessy Olivera, SAMUEL, ELECTRIC TRAIN DRIVER-BC, DEPUTY PROGRAM MANAGER Nurse Practitioner [facility] documented in this encounter Plan of Treatment Scheduled Referrals Name Type Priority Associated Diagnoses Orde r Schedule Referral to Physical Therapy Outpatient Referral Routine Chronic bilateral low back pain with right-sided sciatica Ordered: 05/16/2016 documented as of this encounter Visit Diagnoses Diagnosis Chronic bilateral low back pain with right-sided sciatica Facet arthropathy, lumbar Lumbosacral spondylosis without myelopathy documented in this encounter Care Teams Strap Setter Relationship Specialty Start Date End Date Mary Alice Domingo APRN PCP - General 10/12/11 11/12/18 documented as of this encounter
--- OUTSIDE RECORDS SUMMARY | 2024-03-17 18:31 | XMS_ITS | Encounter Summary ---
[place] [address] Care Team Providers Care Radio Interference Expert Name Role Phone Min[place]okaMary Alice davis Rajendra ROY Primary Care Provider [phone] Reason for Visit * Reason Onset Date Comments Follow-up 12/23/2015 Encounter Details Date Type Department Care Team (Late st Contact Info) Description 12/23/2015 [place] [id number] Peg Abel, RN Follow-up Social History Tobacco Use Types Packs/Day Years [...] encounter Miscellaneous Notes * Telephone Encounter - Livia Abel RN - 12/23/2015 3:40 PM EDT Pt calls again to speak to regarding test results. * Telephone Encounter - Livia Abel RN - 12/23/2015 7:59 AM EDT Pt calls for PFT results and Zio patchresults documented in this encounter Plan of Treatment Not on file documented as of this encounter Visit Diagnoses Not on filedocumented in this encounter Care Teams Radio Interference Expert Relationship Specialty Start Date End Date Mary Alice Cage APRN PCP - General 10/12/11 11/12/18 documented as of this encounter
--- OUTSIDE RECORDS SUMMARY | 2024-03-17 18:31 | XMS_ITS | Encounter Summary ---
Author Organization [facility] [place] [address] Care Team Providers Care Allergist Immunologist Name Role Phone GarlandMary Alice davis Rajendra ROY Primary Care Provider [phone] Reason for Visit * Reason Comments Follow-up Encounter Details Date Type Department Care Team (Latest Contact Info) Description 01/24/2016 9:00 AM EDT Office [place] [address] Justin Starkey MD [facility] [place] [address] Gastroesophageal reflux disease, esophagitis presence not specified; Chronic abdominal pain; Irritable bowel syndrome with diarrhea Social History [...] Sign Reading Time Taken Comments Blood Pressure 153/87 01/24/2016 8:59 AM EDT Pulse 92 01/24/2016 8:59 AM EDT Temperature - - Respiratory Rate - - Oxygen Saturation - - Inhaled Oxygen Concentration - - Weight 89.4 kg (197 lb) 01/24/2016 8:59 AM EDT Height 152.4 cm (5') 01/24/2016 8:59 AM EDT Body Mass Index 38.47 01/24/2016 8:59 AM EDT documented in this encounter Progress Notes * Justin Starkey MD - 01/29/2016 5:42 PM EDT GI FOLLOWUP Poppy Mclaughlin Female, 55 y.o., 1960 , SR None PCP: Mary Alice Cage APRN BOOK SHELVER: None REASON FOR VISIT This is a 55-year-old woman who returns today for routine office visit. LAST VISIT I last saw her on 08/11/15. Her GI issues are those of reflux, nutcracker esophagus, IBS with diarrhea and gas and bloating. At her last visit, she weighed 201.3 pounds. We had her continue Dexilant at 60 mg each morning for reflux. I initiated a trial of Cardizem to help with the spastic disorder of the esophagus (which may also have helped with her IBS and diarrhea). We had her use Lomotil on ap.r.n. basis for the IBS with diarrhea. She was going to continue Neurontin at 900 mg p.o. t.i.d. for visceral pain and we initiated a trial of ciprofloxacin to help with gas and bloating. We had herreturn for specialized testing including high-resolution esophageal manometry which showed evidenceof a hypercontractile disorder of the esophagus; upper endoscopy in October of this year was normal; a Donald pH capsule study while off PPI therapy showed evidence of mild reflux on day one (7.3% acid exposure time; DeMeester score 19.2) but a normal study on day two. ON REVIEW TODAY The patient notes that when she came off her Dexilant for the Donald pH capsule study, her reflux symptoms were significantly worse; they are better on the daily Dexilant. The Cardizem trial, used only for a brief period because of low blood pressure and some fainting, did not help the chest pain. She continues with gas and bloating. Unfortunately, the trial of ciprofloxacin was not very helpful. Generally, she has three loose bowel movements per day. This is definitely better than when I first met her when she was having up to six or seven loose, watery bowel movements. She continues on Neurontin for visceral pain along with neck and back pain. Her weight remains an issue. She had dropped down to 195 pounds; today she is 197 pounds, which is slightly lower than when I saw her in the winter at 201 pounds. She knows that this is a good 80 pounds more than she should weigh. Diet has not been helpful. She cannot exercise due to a variety of medical issues. We had a lengthy discussion about her symptoms; we discussed alternative therapies for her spastic esophageal disorder. We discussed possible anti-reflux surgery. She understands that anti-reflux surgery might help reflux symptoms and get her off the Dexilant, but could potentially worsen her spastic esophageal disorder and could worsen her gas and bloating. She would like to wero this over. A treatment plan is outlined below. ALLERGIES/ADR [...] cholesterol, treated with simvastatin. 11. Obesity. 12. Diabetes. PAST SURGICAL HISTORY 1. Emergency hernia repair May 2011, [place]. 2. Cholecystectomy 11/24/12. 3. Cervical spine fusion surgery August 2013. 4. Lumbar diskectomy 08/2014. HABITS Positive tobacco. No alcohol for yvru-fgh-e-half years. FAMILY HISTORY Noncontributory. SOCIAL HISTORY for 12 years, not currently working, applying for disability. [...] EGD 10/26/15: normal; Z-line at 41. 9. Qfebm-yxzja-wcjm wireless pH capsule 10/26/15 to 10/28/15 off [...] Fior tea - made reflux symptoms worse. PHYSICAL EXAM Height 5 feet 1 inch. Weight 197 pounds. IMPRESSIONS/RECOMMENDATIONS 1. Follow up with PCP for medical and psychological issues. 2. For esophageal spastic disorder, trial of albuterol puffer swallowed using 2 puffs twice daily (swallowed, not inhaled). She has that prescription. 3. For reflux, continue lifestyle modifications and Dexilant at 60 mg q.a.m. one-half hour before breakfast; she is up to date on that prescription. 4. For gas and bloating related to methane overproduction, trial of azithromycin at 250 mg p.o. daily for 10 days. She is aware of possible side effects including severe C. difficile colitis. 5. For IBS with diarrhea, the azithromycin may help. Also, start eluxadoline at 100 mg daily and after two weeks, if no help, increase to 100 mg twice daily. 6. Call in one month. If the esophageal spastic disorder is not better, then return here for EGD with Botox injection of the esophagus. 7. No specialized tests have been scheduled. I will see the patient back in followup in approximately six to eight months. TIME SPENT WITH PATIENT Total Minutes: 40 Minutes of Ypgw-ni-Mukq Counseling: The entire visit was spent in xrgl-pg-nanq counseling and coordination of care. Justin Starkey, PhD, MD furniture finisher, [facility] [employer] Chief, Section of Gastroenterology and Hepatology [facility] [place] [address] V: [phone] F: [phone] BEL/mian CC/EC: PCP - staff msg copy 01/27/16 [facility] GI Project Superintendent - staff msg copy 01/27/16 documented in this encounter Plan of Treatment Not on file documented as of this encounter Visit Diagnoses Diagnosis Gastroesophageal reflux disease, esophagitis presence not specified Chronic abdominal pain Abdominal pain, unspecified site Irritable bowel syndrome with diarrhea Irritable bowel syndrome documented in this encounter Care Teams Allergist Immunologist Relationship Specialty Start Date End Date Mary Alice Cage APRN PCP - General 10/12/11 11/12/18 documented as of this encounter
--- OUTSIDE RECORDS SUMMARY | 2024-03-17 18:31 | XMS_ITS | Encounter Summary ---
[place] [address] Care Team Providers Care Retrimmer Name Role Phone Mary Alice Cage APRN Primary Care Provider [phone] Reason for Visit * Diagnostic Test (Routine) - Closed Specialty Diagnoses / Procedures Referred By Chava t Referred To Contact Radiology Diagnoses Low back pain, non-specific Procedures MRI Lumbar Spine With/WO Contrast MRI Lumbar Spine Without Contrast (GENERIC) MRI Lumbar Spine With/WO Contrast Rios Acuna MD [facility] [address] [place] [address] Referral ID Status Reason Start Date Expiration Date V isits Requested Visits Authorized [id number] Closed Specialty Service Requested 02/27/2016 02/26/2017 1 1 Encounter Details Date Type Department Care Team (Latest Contact Info) Description 02/27/2016 1:04 PM EDT - 02/27/2016 2:14 PM EDT [place] [address] Rios Acuna MD [facility] [address] Low back pain, non-specific Discharge Disposition: Home Social History Tobacco Use [...] Sig Dispensed Refills Start Date End Date OXYGEN-AIR DELIVERY SYSTEMS ( CLASSIC OXYGEN CONCENTRATOR MISC) 3 L by Mis.(Non-Drug; Combo Route) route nightly. diphenoxylate-atropine (LOMOTIL) 2.5-0.025 [...] ORAL) Take 1 tablet by mouth daily. chlorpheniramine (CHLOR-TRIMETON) 4 mg Tablet Take 4 mg by mouth every 6 hours as needed for Allergies. cholecalciferol, Vitamin D3, 400 unit tablet Take 400 Units by mouth daily. loratadine (CLARITIN) 10 mg tabletIndications:Mult iple nodules of lung Take 10 mg by mouth daily. eluxadoline 100 mg Tablet Take 100 mg by mouth 2 times daily. 60 tablet 5 01/24/2016 01/23/2017 rOPINIRole (REQUIP) 0.5 mg Tablet Take 0.5 mg by mouth nightly. 11/15/2015 05/16/2016 sulfamethoxazole-trime thoprim (BACTRIM DS) 800-160 mg TabletIndications:COPD , moderate Take 1 tablet by mouth 2 times daily for 10 days. 20 tablet 1 12/09/2015 07/07/2016 DEXILANT 60 mg Cap, Delayed Rel., MultiphasicIndications :Gastroesophageal reflux disease, esophagitis presence not specified TAKE ONE CAPSULE BY MOUTH ONCE DAILY 30 capsule 5 11/28/2015 09/13/2016 Miscellaneous Medical Supply MiscIndications:PAH (pulmonary artery hypertension) Face mask for nocturnal O2 1 each PRN 08/29/2015 10/24/2016 HYDROcodone-acetaminop hen (VICODIN) 5-300 mg Tablet Take 1 tablet by mouth every 4 hours. 10 mg 07/09/2016 simvastatin (ZOCOR) 20 mg Tablet Take 20 mg by mouth nightly. 11/14/2018 dicyclomine (BENTYL) 10 mg CapsuleIndications:Chr onic abdominal pain Take 1 capsule by mouth 4 times daily. 120 capsule 11 05/24/2015 06/15/2016 atenolol (TENORMIN) 25 mg Tablet Take 25 mg by mouth daily. 11/14/2018 fluconazole (DIFLUCAN) 100 mg TabletIndications:Thru sh Take 1 tablet by mouth daily. 5 tablet 3 02/21/2015 12/20/2016 spironolactone (ALDACTONE) 25 mg Tablet Take 25 mg by mouth daily. 07/09/2016 lisinopril (PRINIVIL;ZESTRIL) 10 mg TabletIndications:Giovanny a,Hypertension Take 1 tablet by mouth daily. 30 tablet 12 08/03/2014 07/09/2016 BUDESONIDE/FORMOTEROL FUMARATE (SYMBICORT INHL) Inhale 2 puffs into the lungs every 12 hours. 09/13/2017 ibuprofen (ADVIL;MOTRIN) 800 mg Tablet Take 800 mg by mouth 3 times daily. 07/09/2016 acetaminophen (TYLENOL) 500 mg Tablet Take 1,000 [...] mouth. 09/13/2017 guaiFENesin (ROBITUSSIN) 100 mg/5 mL syrupIndications:Multi ple nodules of lung Take 200 mg by mouth 3 times daily as needed. 12/20/2016 citalopram (CELEXA) 40 mg tablet Take 1 tablet by mouth daily. 90 tablet 3 08/19/2012 07/14/2021 documented as of this encounter Plan of Treatment Not on file documented as of this encounter Procedures Procedure Name Priority Date/Time Associated Diagnosis Comments MRI LUMBAR SPINE WITH/WO CONTRAST Routine 02/27/2016 2:21 PM EDT Low back pain, non-specific documented in this encounter Results * MRI Lumbar Spine With/WO Contrast (02/27/2016 2:21 PM EDT) Anatomical Region Laterality Modality L-spine Magnetic Resonan ce Impressions 02/27/2016 4:02 PM EDT Interval development of abnormal enhancing material about the lateral aspect of the right L4-5 neural foramen most likely representing scar tissue. No evidence of recurrent disc herniation at this site or new disc herniation elsewhere in the lumbar spine. Comment: The following findings are so common in people without low back pain that while we report their presence, they must be interpreted with caution and in context of the clinical situation (Reference- Jazminevik et al, Spine 2001). Findings: (Prevalence in patients without low back pain), disc degeneration (decreased T2 signal, height loss, bulge) (91%), disc T2-signal loss (83%), disc height loss (56%), disc bulge (64%), disc protrusion (32%), annular fissure (38%). Narrative 02/27/2016 4:02 PM EDT EXAMINATION: MRI LUMBAR SPINE WITH/WO CONTRAST CLINICAL HISTORY: back pain, weakness in legs TECHNIQUE: MRI of the lumbar spine is obtained both before and after the administration of 9 cc Gadavist. COMPARISON: MRI of the lumbar spine of 04/07/2014. Lumbar spine radiographs of 02/27/2016. FINDINGS: The study is moderately marred by [...] moderate bilateral neural foramen narrowing without change. Procedure Note Facundo Rainey MD - 02/27/2016 EXAMINATION: MRI LUMBAR SPINE WITH/WO CONTRAST CLINICAL HISTORY: back pain, weakness in legs TECHNIQUE: MRI of the lumbar spine is obtained both before and after the administration of 9 cc Gadavist. COMPARISON: MRI of the lumbar spine of 04/07/2014. Lumbar spine radiographsof 02/27/2016. FINDINGS: The study is moderately marred by patient motion. The grade I anterolisthesis of L5 with respect to S1 shows no interval alteration.. There is mild levoconvex scoliosis of the lumbar spinewithout change. Alignment is otherwise normal. There appearances of theintervertebral discs show no interval alteration. Marrow signal is unchanged. The conus medullaris is unchanged in contour and signal characteristics terminatingthe level of upper L3 At L1-2 and L2-3 there is no disc herniation or evidence of nerve root impingement. At L3-4 there is mild bilateral facet arthropathy greater on the rightproducing mild right neural foramen narrowing. At L4-5 there is a circumferential disc bulge and mild bilateral facet arthropathy. There is complete effacement of the fat within the neuralforamen but this tissue shows abnormal enhancement and likely representsgranulation tissue. No more than a small recurrent disc herniation is evident though visualization is difficult given the image quality. At L5-S1 there is marked bilateral facet arthropathy greater on the right.There is a circumferential disc bulge which combines with the facetarthropathy produce moderate bilateral neural foramen narrowing without change. IMPRESSION Interval development of abnormal enhancing material about the lateralaspect of the right L4-5 neural foramen most likely representing scar tissue. Noevidence of recurrent disc herniation at this site or new disc herniation elsewherein the lumbar spine. Comment: The following findings are so common in people without low backpain that while we report their presence, they must be interpreted with cautionand in context of the clinical situation (Reference- Jarvik et al, [id number]). Findings: (Prevalence in patients without low back pain), discdegeneration (decreased T2 signal, height loss, bulge) (91%), disc T2-signal loss(83%), disc height loss (56%), disc bulge (64%), disc protrusion (32%), annularfissure (38%). Rios Acuna MD IMG MRI ORDERABLES documented in this encounter Visit Diagnoses Diagnosis Low back pain, non-specific documented in this encounter Administered Medications Inactive Administered Medications - up to 3 most recent administrations Medication Order MAR Action Action Date Dose Rate Site gadobutrol (GADAVIST) 1 mMol/mL injection 9.03 mL 9.03 mL (0.1 mL/kg/dose ? 90.3 kg Order-specific weight), Intravenous, ONCE PRN, 1 dose, Starting on Sat02/27/16 at 1422, Until Sat02/27/16 at 1422, Per Protocol, Routine Given 02/27/2016 2:22 PM EDT 9 mLs documented in this encounter Care Teams Retrimmer Relationship Specialty Start Date End Date Mary Alice Cage APRN PCP - General 10/12/11 11/12/18 documented as of this encounter
--- OUTSIDE RECORDS SUMMARY | 2024-03-17 18:31 | XMS_ITS | Encounter Summary ---
Author Organization [facility] [place] [address] Care Team Providers Care Quarry Manager Name Role Phone Mary Alice Cage APRN Primary Care Provider [phone] Reason for Referral * Consultation (Routine) - Specialty Diagnoses / Procedures Referred By Chava alejo Referred To Contact Sleep Center Diagnoses PAH (pulmonary artery hypertension) Osmany Holloway MD [facility] [place] [address] [facility] Sleep Medicine [address] [place] [address] Referral ID Status Reason Start Date Expiration Date V isits Requested Visits Authorized [id number] Consult, Test & Treat Connection Center 12/23/2015 12/22/2016 5 5 Encounter Details Date Type Department Care Team (Late st Contact Info) Description 12/23/2015 [place] [address] Osmany Holloway MD [facility] [place] [address] PAH (pulmonary artery hypertension) Social History Tobacco [...] as of this encounter Plan of Treatment Scheduled Referrals Name Type Priority Associated Diagnoses Orde r Schedule Referral to Sleep Disorders Center Outpatient Referral Routine PAH (pulmonary artery hypertension) Ordered: 12/23/2015 documented as of this encounter Visit Diagnoses Diagnosis PAH (pulmonary artery hypertension) Other chronic pulmonary heart diseases documented in this encounter Care Teams Quarry Manager Relationship Specialty Start Date End Date Mary Alice Cage APRN PCP - General 10/12/11 11/12/18 documented as of this encounter
--- OUTSIDE RECORDS SUMMARY | 2024-03-17 18:31 | XMS_ITS | Encounter Summary ---
Author Organization [facility] [place] [address] Care Team Providers Care Oil Refinery Operator Name Role Phone MoffatMary Alice davis Rajendra ROY Primary Care Provider Reason for Visit * Reason Comments Follow-up Encounter Details Date Type Department Care Team (Late st Contact Info) Description 03/19/2016 10:00 AM EDT Office [place] [address] Osmany Holloway MD [facility] [place] [address] Chronic diarrhea; COPD, moderate Social History Tobacco Use Types [...] Sign Reading Time Taken Comments Blood Pressure 143/76 03/19/2016 9:35 AM EDT Pulse 94 03/19/2016 9:35 AM EDT Temperature - - Respiratory Rate 20 03/19/2016 9:35 AM EDT Oxygen Saturation 99% 03/19/2016 9:35 AM EDT Inhaled Oxygen Concentration - - Weight 89.4 kg (197 lb) 03/19/2016 9:35 AM EDT Height 156.2 cm (5' 1.5) 03/19/2016 9:35 AM EDT Body Mass Index 36.62 03/19/2016 9:35 AM EDT documented in this encounter Progress Notes * Osmany Holloway MD - 03/19/2016 10:00 AM EDT PULMONARY MEDICINE Follow-Up Follow-up 55 y.o. female with dyspnea, diaphragmatic weakness, with cervical nerve compression (s/psurgery) at multiple levels. Continued cough, sputum, wheezing, and moderately elevated PAS on ECHO. Still smoking 1ppd. Recently had Ziopatch for syncope evaluation, which was unrevealing. C/o constant thirst, and is on nothing for diabetes. PAST MEDICAL HISTORY: Patient Active Problem List Diagnosis Code ??? Abdominal distention R14.0 ??? Multiple nodules of lung R91.8 ??? Dyspnea R06.00 ??? Biliary colic K80.50 ??? Herniated nucleus pulposus, C6-7 Right, S/P C5-7 ACDF 09/08/13 M50.22 ??? Urinary retention with incomplete bladder emptying- [...] Outpatient Prescriptions Marked as Taking for the 03/19/16 encounter (Office Visit) with Osmany Holloway MD Medication Sig Dispense Refill ??? albuterol (PROVENTIL) 2.5 mg /3 mL (0.083 %) Solution for Nebulization Take 2.5 mg by nebulization every 4 hours as needed for Wheezing. ??? eluxadoline 100 mg Tablet Take 100 mg by mouth 2 times daily. 60 tablet 5 ??? rOPINIRole (REQUIP) 0.5 mg Tablet ??? DEXILANT 60 mg Cap, Delayed Rel., Multiphasic TAKE ONE CAPSULE BY MOUTH ONCE DAILY 30 capsule 5 ??? Miscellaneous Medical Supply [facility] Face mask for nocturnal O2 1 each PRN ??? HYDROcodone-acetaminophen (VICODIN) 5-300 mg Tablet Take 1 tablet by mouth every 4 hours. 10 mg ??? simvastatin (ZOCOR) 20 mg Tablet Take 20 mg by mouth nightly. ??? OXYGEN-AIR DELIVERY SYSTEMS ([facility] OXYGEN [facility]CENTRATOR [facility]) by [facility].(Non-Drug; Combo Route) route nightly. ??? chlorpheniramine (CHLOR-TRIMETON) 4 mg Tablet Take 4 mg by mouth every 6 hours as needed for Allergies. ??? dicyclomine (BENTYL) 10 mg Capsule Take 1 capsule by mouth 4 times daily. 120 capsule 11 ??? atenolol (TENORMIN) 25 mg Tablet Take 25 mg by mouth daily. ??? fluconazole (DIFLUCAN) 100 mg Tablet Take 1 tablet by mouth daily. 5 tablet 3 ??? spironolactone (ALDACTONE) 25 mg Tablet Take 25 [...] you are having diarrhea. 120 tablet 7 ??? albuterol (PROVENTIL HFA;VENTOLIN HFA) 90 mcg/actuation HFA Aerosol Inhaler Inhale 2 puffs intothe lungs every 4 hours as needed. Use with spacer ??? ibuprofen (ADVIL;MOTRIN) 800 mg Tablet Take 800 mg by mouth 3 times daily. ??? acetaminophen (TYLENOL) 500 mg Tablet Take 1,000 mg by mouth 3 times daily. ??? Inhalational Spacing Device Spcr 2 puffs by [facility].(Non-Drug; Combo Route) route daily. ??? fluticasone (FLONASE) [...] 24 hrs Temperature Heart Rate Heart Rate: 94 Heart Rate: [94] Blood Pressure BP: 143/76 BP: (143)/(76) Respiratory Rate Resp: 20 Resp: [20] SpO2 SpO2: 99 % SpO2: [99 %] WDWN 55 y.o. female in NAD. [...] today and my interpretation is as follows: Sats started at 98% on RA and dropped to 93% after 600' with moderate SOB. Mild desaturation with exertion. IMPRESSION: In summary, this is a 55 y.o. female with restrictive lung physiology, primarily extraparenchymal. Clinically has airflow obstruction, and she clearly benefits from treatment for OAD. Pulmonary hypertension is mild, but also has elevated LV filling pressures. Awaiting PSG in Apr. Will check BS today, and may need metformin to keep under better control. F/u 6 mo with PFTs. Greater than 20 min of this 25 minute visit was spent in face to face discussion with the patient regarding the nature and complexity of the problems described above, and the details of our diagnostic and therapeutic plans. Had extensive discussion about smoking cessation. documented in this encounter Miscellaneous Notes * Addendum Note - Deisy Ojeda - 03/19/2016 11:18 AM EDTAddended by: DEISY OJEDA on: 03/19/2016 11:18 AM Modules accepted: Orders documented in this encounter Plan of Treatment Pending Results Name Type Priority Associated Diagnoses Date /Time Pulmonary Function Testing PFT Routine COPD, moderate 07/09/2016 12:41 PM EST Scheduled Orders Name Type Priority Associated Diagnoses Orde r Schedule Pulmonary Function Testing PFT Routine COPD, moderate Expected: 07/17/2016 (Approximate), Expires: 03/19/2017 documented as of this encounter Procedures Procedure Name Priority Date/Time Associated Diagnosis Comments BASIC METABOLIC PANEL Routine 03/19/2016 11:27 AM EDT Chronic diarrhea documented in this encounter Results * (ABNORMAL) Basic Metabolic Panel (non-fasting) (03/19/2016 11:27 AM EDT) Glucose 92 65 - 199 mg/dL [facility] Comment:Diabetes: >=200 mg/d L plus symptoms Blood Urea Nitrogen 21(H) 8 - 18 mg/dL [facility] Creatinine 1.20 0.70 - 1.20 mg/dL [facility] Comment: Please note that the pediatric reference intervals supplied above were not validated at [facility]. Results from pediatric patients should be interpreted in conjunction to the patient's age, height and muscle mass. Sodium 142 135 - 145 mmol/L [facility] Potassium 4.4 3.5 - 5.0 mmol/L [facility] Comment: Please note: ??Patients with WBC >100,000 may have falsely elevated Potassium levels. ??For accurate Potassium quantification in these patients send serum separator tube (gold top) for subsequent determinations. ??Contact the Clinical Chemistry Laboratory if there are any questions. Chloride 103 98 - 107 mmol/L [facility] Carbon Dioxide 24 22 - 31 mmol/L [facility] Anion Gap 15 5 - 15 mmol/L [facility] Calcium 9.5 8.5 - 10.5 mg/dL [facility] Est Glomerular Filtration Rate 47(L) >=60 [facility] Comment: This estimated GFR (eGFR) value was calculated using the MDRD equation which has been validated on patients between the ages of 18 and 70. The MDRD should not be used to assess kidney function in patients < 18 years of age or in patients with extremes of body mass, or in patients with acute kidney failure. This value should be multiplied by 1.2 for patients. For further information please copy and paste the following links into your internet browser. http://[employer]/DHnkdep http://[employer]/DHMCnkf Blood specimen (specimen) 03/19/2016 11:27 AM EDT 03/19/2016 11:41 AM EDT Narrative Resulting Agency Comment Spec In Lab Osmany Overton MD CHEMISTRY ORDERABLE S [facility] [place] [address] documented in this encounter Visit Diagnoses Diagnosis Chronic diarrhea Diarrhea COPD, moderate Chronic airway obstruction, not elsewhere classified documented in this encounter Care Teams Oil Refinery Operator Relationship Specialty Start Date End Date Mary Alice Cage APRN PCP - General 10/12/11 11/12/18 documented as of this encounter
--- OUTSIDE RECORDS SUMMARY | 2024-03-17 18:31 | XMS_ITS | Encounter Summary ---
[place] [address] Care Team Providers Care Bit Shaver Name Role Phone LymanMary Alice davis Rajendra ROY Primary Care Provider [phone] Encounter Details Date Type Department Care Team (Late st Contact Info) Description 05/03/2016 Orders Only [facility] [address] [place] [address] Annie Marino MD [facility] [place] [address] Social History Tobacco Use Types Packs/Day Years [...] as of this encounter Progress Notes * Annie Marino MD - 05/03/2016 11:00 AM EDT Polysomnogram Order Form Room # Technologist Assignment: To be read by on PSG Patient Information Date of study: : 1960 Name: Poppy Mclaughlin Height: 60in Weight: 196# 55 y.o. female Normal sleep hours: 11-6 Arrival Time: Physical/Mobility Limitations: No Cognitive Limitations: No Requires Male Tech: No Requires Female Tech: No Requires 1:1 Care: No Requires Parent/Caregiver: [place] of Parent/Caregiver staying: Using Home Oxygen: YES - 2 lpm At home sleeps in: Bed PSG Indications: moderate arousal based ELO (didn't meet Medicare criteria because on supplemental oxygen) -- split study with PAP titration Other Medical Conditions: pulmonary htn, HTN, COPD, depression, anxiety, back pain PSG Orders Type of study: Split study -- please run for up to 3 hrs without CPAP or oxygen (her sats will likely stay in the low 80s) then split to CPAP. Can split once CMS AHI is clearly>5 Additional data required: no Special instructions: 1. Start on room air as above -- can add oxygen back if patient has any complaints of shortness of breath, chest pain, lightheadedness, but trying to qualify for CPAP with Medicare 2. Assess whether O2 needed with CPAP - can start if on CPAP and sats remaining less than 90% *Initiate CPAP/BPAP/oxygen per previously determined protocols unless otherwise specified. documented in this encounter Plan of Treatment Not on file documented as of this encounter Visit Diagnoses Not on filedocumented in this encounter Care Teams Bit Shaver Relationship Specialty Start Date End Date Mary Alice Cage APRN PCP - General 10/12/11 11/12/18 documented as of this encounter
--- OUTSIDE RECORDS SUMMARY | 2024-03-17 18:31 | XMS_ITS | Encounter Summary ---
[place] [address] Care Team Providers Care Tail Dogger Name Role Phone VillalbaMary Alice davis MANUELA Primary Care Provider [phone] Encounter Details Date Type Department Care Team (Late st Contact Info) Description 11/25/2015 Telephone [place] [id number] Peg Abel, RN Social History Tobacco Use Types Packs/Day [...] Miscellaneous Notes * Telephone Encounter - Livia Abel, RN - 11/25/2015 11:36 AM EDT 54 y.o. female with dyspnea, diaphragmatic weakness, with cervical nerve compression (s/p surgery) at multiple levels. S/P lumbar surgery for spinal stenosis, with residual incontinence. Still with cough, sputum, wheezing.?? States that she has had multiple syncopal episodes, without palpitations or lightheadedness.?? Cardiac ECHO showed good LV systolic function and moderately elevated PAS.?? Onmultiple antihypertensives. ? She got Zio patch placed on 11/21 by the order of her lever miller. She called that her Zio cameoff after shower yesterday. She taped the bottom part of it. Wondering what se should do. ? She did call somebody yesterday and was expecting a call today (but it didn't happen). ? I will forward the note and talk to Zio department tomorrow. ? Her mom's apartment number is [phone] (she is leaving some time tomorrow to got there). ? Will forward note to Dr. Holloway as well. 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 The Zio patch was removed by patient after 24 hours due to itching and redness. She will need an alternative To this patch to hold her event monitor. I sent patient back to cardiology after speaking with Inderjit.He suggested she return and speak to one of the techs. Area on chest red but skin is in tact. documented in this encounter Plan of Treatment Not on file documented as of this encounter Visit Diagnoses Not on filedocumented in this encounter Care Teams Tail Dogger Relationship Specialty Start Date End Date Mary Alice Cage APRN PCP - General 10/12/11 11/12/18 documented as of this encounter
--- OUTSIDE RECORDS SUMMARY | 2024-03-17 18:31 | XMS_ITS | Encounter Summary ---
[place] [address] Care Team Providers Care Cup Machine Operator Name Role Phone Mar yAlice Cage APRN Primary Care Provider [phone] Reason for Referral * Consultation (Routine) - Closed Specialty Diagnoses / Procedures Referred By Chava alejo Referred To Contact Sleep Center Diagnoses ELO (obstructive sleep apnea) Procedures PRG POLYLSOM 6+ YRS SLEEP W CPAP W 4+ ADDL BELEM Emily Pacheco MD [facility] [place] [address] [facility] Sleep Medicine [address] [place] [address] Referral ID Status Reason Start Date Expiration Date V isits Requested Visits Authorized [id number] Closed Test Only 05/03/2016 05/03/2017 1 1 Reason for Visit * Consultation (Routine) - Closed Specialty Diagnoses / Procedures Referred By Chava alejo Referred To Contact Sleep Center Diagnoses Snoring Excessive daytime sleepiness Unrefreshed by Shobha Urbano APRN [facility] [place] [address] [facility] Sleep Medicine [address] [place] [address] Referral ID Status Reason Start Date Expiration Date V isits Requested Visits Authorized [id number] Closed Test Only 04/23/2016 04/23/2017 1 1 Encounter Details Date Type Department Care Team (Late st Contact Info) Description 04/25/2016 8:30 PM EDT Procedure visit [facility] [address] [place] [id number] Emily Marino MD [facility] [place] [address] ELO (obstructive sleep apnea); Nocturnal hypoxemia Social History Tobacco Use Types Packs/Day Years [...] Sign Reading Time Taken Comments Blood Pressure 142/78 04/25/2016 8:00 PM EDT Pulse 96 04/25/2016 8:00 PM EDT Temperature - - Respiratory Rate - - Oxygen Saturation - - Inhaled Oxygen Concentration - - Weight 88.9 kg (196 lb) 04/25/2016 8:00 PM EDT Height 152.4 cm (5') 04/25/2016 8:00 PM EDT Body Mass Index 38.28 04/25/2016 8:00 PM EDT documented in this encounter Progress Notes * Emily Marino MD - 04/25/2016 8:30 PM EDT Images from the original note were not included. REPORT OF DIAGNOTIC POLYSOMNOGRAM History Of Present Illness: Poppy Mclaughlin is a 55 y.o. female who presents for a polysomnogram. Polysomnography: The patient's sleep was evaluated for one night at the [facility]. Sleep was monitored in accordance with recommended AASM guidelines. The recording also included oral/nasal airflow, chest and abdominal respiratory effort, nasal pressure, single channel EKG, intercostalEMG, bilateral tibialis EMG, and oxygen saturation (by pulse oximeter). Comment: Supplemental oxygen added at 1:14am due to persistent hypoxemia - Sleep/EEG: Sleep efficiency: reduced Sleep architecture: generally normal other than lack of REM REM observed: no Supine sleep observed: yes - Respiratory: Snoring: moderate to loud Obstructive respiratory events observed: yes - scattered hypopneas, predominantly arousal-based AHI: 30 [facility] AHI: 0 (includes apneas + only hypopneas associated with 4% or greater desaturation) Mean SaO2 on room air during sleep: 87% Total sleep time with SaO2<=89%: 36 min Total sleep time with SaO2<=88%: 35.5 min Minimum SaO2: 83% 1 lpm oxygen added: Mean SaO2 92% Minimum SaO2: 90% Mean TCO2: 38.9 torr Max TCO2: 41.8 torr - EKG: Normal sinus rhythm without significant ectopy. - EMG: Unremarkable. Assessment: .Poppy Mclaughlin is a 55 y.o. female whose polysomnogram reveals evidence of sleep-disordered breathing. Sleep related hypoxemia was present, with a oxyhemoglobin saturations remaining less than 89% persistently on room air. With 1 lpm supplemental oxygen, the baseline saturation did improve and generally remain >90%. There was not evidence of hypoventilation/hypercapnea based on normal transcutaneous CO2 values. Adding the supplemental oxygen did not affect the CO2 values. Therewas also evidence of obstructive sleep apnea. This was in the moderate range when assessed by arousal-based criteria, although there were not significant desaturation-based events. This however, may have been impacted by the addition of supplemental oxygen. Sleep efficiency was reduced, with awakenings after sleep onset. No REM was observed, although sleep architecture was otherwise normal. No motor disorder identified. Phone message left for Ms. Mclaughlin regarding results and management options.She does not meet Medicare criteria to cover CPAP, although I indicated that she can consider returning for a PAP titration and then if she wanted to proceed with CPAP, she can try to work with a DMEto obtain equipment. We could also obtain a split night study and keep the oxygen off for longer toassess whether this impacts the [facility] AHI. Recommendations: 1. Consider CPAP trial (will order split) [facility] REPORT of Split-Night Polysomnography Patient Name: Poppy Mclaughlin Study Date: 04/25/2016 Age & Sex: 55 y.o. Female Height: 5' Date of : 1960 Weight: 196.2 lbs BMI: 38.3 Referring Provider: Recording Technologist: GERMAN VELARDE Scoring Technologist: BYRON COON Sleep Fellow: Sleep Specialist: EMILY MARINO M.D. Scoring Technologist Comments: ECG: Ectopy: Description of Study: Diagnostic polysomnography was performed utilizing frontal, central & occipital EEG, EOG, submentalis EMG, oronasal thermocouple, nasal pressure, ECG, thoracic and abdominalinductance plethysmography, right and left anterior tibialis EMG, snore sensor, transcutaneous CO2,and pulse oximetry according to AASM established guidelines. Study Details & Sleep Architecture Diagnostic Start Time (Lights Off): 23:40:30 Total Recording Time: 91.0 min Diagnostic End Time (Lights On): 01:11:31 Total Sleep Time (minutes): 49.5 Total Num. of Stage Shifts: 23 Total Sleep Time (hrs:min): 0:49.5 Total Num. of Awakenings: 7 Sleep Onset Latency: 17.5 min Total Num. of Trans. to N1: 5 Sleep Efficiency: 54.4% Total Num. of REM Periods: 0 Stage Results: Time (minutes) %TST Latency (minutes) WASO: 24.0 - - N1: 4.0 8.1 0.0 N2: 40.5 81.8 4.0 N3: 5.0 10.1 68.5 REM: 0.0 0.0 - - (minus wake) Arousal Counts: NREM REM Total Spontaneous: 34 (41.2/hr) 0 (-/hr) 34 (41.2/hr) Sum of All Arousals: 38 (46.1/hr) 0 (-/hr) 38 (46.1/hr) Spontaneous arousals include only EEG arousals not associated with a respiratory event or PLM. Body Position: Supine Non-Supine Non-REM: 36.0 min 13.5 min REM: 0.0 min 0.0 min Total Sleep: 36.0 min (72.7%) 13.5 min (27.3%) Respiratory Events Apneas Obstructive Mixed Central Total [...] Hypopnea Definitions: Hypopnea* CMS Hypopnea 3% desat itny. Hypopneas All RERA Total Count: 0 4 4 0 Mean Duration (sec): - 17.9 - 0 Longest Duration (sec): 0.0 21.2 - 0 Index (REM/NREM): - / 0.0 - / 4.8 0 / 4.8 - / 0.0 Index (Sup./Non-Sup.): 0.0 / 0.0 6.7 / 0.0 6.7 / 0.0 0.0 / 0.0 Index (Total): 0.0 4.8 4.8 0.0 *[facility]-defined hypopneas include only hypopneas with a >=4% oxygen desaturation. Includes hypopneas with an arousal or with a 3%-4% desaturation. [facility] Hypopneas not included. Periodic Breathing Total Sleep Time Time (minutes) 0.0 Time (%Sleep Time) 0.0 AHI: Includes all apneas & all hypopneas associated with an arousal or a ? 3% desaturation. Supine Non-Sup. REM NREM Total Count: 4 0 0 4 4 Index (events/hr): 6.7 0.0 0.0 4.8 AHI = 4.8 CMS AHI: Includes all apneas & only hypopneas associated with a ? 4% desaturation. Supine Non-Sup. REM NREM Total Count: 0 0 0 0 0 Index (events/hr): 0.0 0.0 0 0.0 CMS = 0.0 Obstructive AHI: Includes obstructive & mixed apneas as well as all hypopneas. Excludes centralapneas and RERAs. Supine Non-Sup. REM NREM Total Count: 4 0 0 4 4 Index (events/hr): 6.7 0.0 0.0 4.8 OAHI = 4.8 RDI: Includes all apneas, all hypopneas, all RERAs, and all ???Unsure??? events. Supine Non-Sup. REM NREM Total Count: 4 0 0.0 4.0 4 Index (events/hr): 6.7 0.0 0.0 4.8 RDI = 4.8 Oxygen Saturation Details SpO2 Awake NREM REM All Sleep DAMIEN Report Sleep Mean: 91% 87% -% 87% 3% DAMIEN 0.0 0.0 Minimum: - 83% -% 83% 4% DAMIEN 0.0 0.0 SpO2 Awake (minutes) NREM (minutes) REM (minutes) All Sleep (minutes) ?90% 10.8 36.8 0.0 36.8 ?89% 6.5 36.0 0.0 36.0 ?88% 1.7 35.5 0.0 35.5 90-99% 18.8 12.7 0.0 12.7 80-89.9% 6.5 36.0 0.0 36.0 79-79.9% 0.0 0.0 0.0 0.0 60-69.9% 0.0 0.0 0.0 0.0 50-59.9% 0.0 0.0 0.0 0.0 ?50% 0.0 0.0 0.0 0.0 Transcutaneous CO2 Details TCO2: NREM REM All Sleep Max. (torr) 41.2 - 41.2 Mean (torr) 38.8 - 38.8 NREM REM All Sleep TCO2: Minutes %NREM Minutes %REM Minutes %TST >45 torr 0.00 0.0% 0.00 0% 0.00 0.0% >50 torr 0.00 0.0% 0.00 0% 0.00 0.0% >51 torr 0.00 0.0% 0.00 0% 0.00 0.0% >52 torr 0.00 0.0% 0.00 0% 0.00 0.0% >53 torr 0.00 0.0% 0.00 0% 0.00 0.0% >54 torr 0.00 0.0% 0.00 0% 0.00 0.0% >55 torr 0.00 0.0% 0.00 0% 0.00 0.0% >60 torr 0.00 0.0% 0.00 0% 0.00 0.0% >65 torr 0.00 0.0% 0.00 0% 0.00 0.0% >70 torr 0.00 0.0% 0.00 0% 0.00 0.0% Cardiac Details Heart Rate (bpm) Total Study NREM REM All Sleep Minimum - 70 - 70 Maximum 93 93 - 93 Mean - 86 - 86 Limb Movement Details Periodic Limb Movements Total PLMs (and Index) PLMs w/ Arousals (and Index) Wake (after ???Lights Off???): 0 (0.0/hr) 0 (0.0/hr) NREM: 0 (0.0/hr) 0 (0.0/hr) REM: 0 (0.0/hr) 0 (-/hr) Total Sleep: 0 (0.0/hr) 0 (0.0/hr) Therapeutic Analysis Study Details & Sleep Architecture (Therapeutic Portion) Diagnostic Start Time (Lights Off): 01:14:00 Total Recording Time: 299.5 min Diagnostic End Time (Lights On): 06:13:31 Total Sleep Time (minutes): 179.0 Total Num. of Stage Shifts: 97 Total Sleep Time (hrs:min): 2:59.0 Total Num. of Awakenings: 29 Sleep Onset Latency: 8.5 min Total Num. of Trans. to N1: 24 Sleep Efficiency: 59.8% Total Num. of REM Periods: 0 Stage Results: Time (minutes) %TST Latency (minutes) WASO: 112.0 - - N1: 23.5 13.1 5.0 N2: 131.5 73.5 0.0 N3: 24.0 13.4 33.5 REM: 0.0 0.0 - - (minus wake) Arousal Counts: NREM REM Total Spontaneous: 57 (19.1/hr) 0 (-/hr) 57 (19.1/hr) Sum of All Arousals: 109 (36.5/hr) 0 (-/hr) 109 (36.5/hr) Spontaneous arousals include only EEG arousals not associated with a respiratory event or PLM. Body Position: Supine Non-Supine Non-REM: 116.5 min 62.5 min REM: 0.0 min 0.0 min Total Sleep: 116.5 min (65.1%) 62.5 min (34.9%) Respiratory Events (Therapeutic Portion) Apneas Obstructive Mixed Central Total Apneas Total [...] desat tiny. Hypopneas All RERA Total Count: 3 72 75 1 Mean Duration (sec): 19.9 22.1 - 25.8 Longest Duration (sec): 23.8 47.2 - 25.8 Index (REM/NREM): - / 1.0 - / 24.1 0 / 25.1 - / 0.3 Index (Sup./Non-Sup.): 1.5 / 0.0 20.1 / 31.7 21.6 / 31.7 0.0 / 0.5 Index (Total): 1.0 24.1 25.1 0.2 *[facility]-defined hypopneas include only hypopneas with a >=4% oxygen desaturation. Includes hypopneas with an arousal or with a 3%-4% desaturation. [facility] Hypopneas not included. Periodic Breathing Total Sleep Time Time (minutes) 0.0 Time (%Sleep Time) 0.0 AHI: Includes all apneas & all hypopneas associated with an arousal or a ? 3% desaturation. Supine Non-Sup. REM NREM Total Count: 42 33 0 75 75 Index (events/hr): 21.6 31.7 0.0 25.1 AHI = 25.1 CMS AHI: Includes all apneas & only hypopneas associated with a ? 4% desaturation. Supine Non-Sup. REM NREM Total Count: 3 0 0 3 3 Index (events/hr): 1.5 0.0 0 1.0 CMS = 1.0 Obstructive AHI: Includes obstructive & mixed apneas as well as all hypopneas. Excludes centralapneas and RERAs. Supine Non-Sup. REM NREM Total Count: 42 33 0 75 75 Index (events/hr): 21.6 31.7 0.0 25.1 OAHI = 25.1 RDI: Includes all apneas, all hypopneas, all RERAs, and all ???Unsure??? events. Supine Non-Sup. REM NREM Total Count: 42 34 0.0 76.1 76 Index (events/hr): 21.6 32.6 0.0 25.5 RDI = 25.5 Oxygen Saturation Details (Therapeutic Portion) SpO2 Awake NREM REM All Sleep DAMIEN Report Sleep Mean: 93% 92% -% 92% 3% DAMIEN 5.8 4.0 Minimum: - 90% -% 90% 4% DAMIEN 2.2 0.7 SpO2 Awake (minutes) NREM (minutes) REM (minutes) All Sleep (minutes) ?90% 1.7 0.1 0.0 0.1 ?89% 0.1 0.0 0.0 0.0 ?88% 0.1 0.0 0.0 0.0 90-99% 103.9 178.9 0.0 178.9 80-89.9% 0.1 0.0 0.0 0.0 79-79.9% 0.0 0.0 0.0 0.0 60-69.9% 0.0 0.0 0.0 0.0 50-59.9% 0.0 0.0 0.0 0.0 ?50% 0.0 0.0 0.0 0.0 Transcutaneous CO2 Details (Therapeutic Portion) TCO2: NREM REM All Sleep Max. (torr) 42.4 - 42.4 Mean (torr) 39.1 - 39.1 NREM REM All Sleep TCO2: Minutes %NREM Minutes %REM Minutes %TST >45 torr 0.00 0.0% 0.00 0% 0.00 0.0% >50 torr 0.00 0.0% 0.00 0% 0.00 0.0% >51 torr 0.00 0.0% 0.00 0% 0.00 0.0% >52 torr 0.00 0.0% 0.00 0% 0.00 0.0% >53 torr 0.00 0.0% 0.00 0% 0.00 0.0% >54 torr 0.00 0.0% 0.00 0% 0.00 0.0% >55 torr 0.00 0.0% 0.00 0% 0.00 0.0% >60 torr 0.00 0.0% 0.00 0% 0.00 0.0% >65 torr 0.00 0.0% 0.00 0% 0.00 0.0% >70 torr 0.00 0.0% 0.00 0% 0.00 0.0% Cardiac Details (Therapeutic Portion) Heart Rate (bpm) Total Study NREM REM All Sleep Minimum - 69 - 69 Maximum 93 93 - 93 Mean - 78 - 78 Limb Movement Details (Therapeutic Portion) Periodic Limb Movements Total PLMs (and Index) PLMs w/ Arousals (and Index) Wake (after ???Lights Off???): 0 (0.0/hr) 0 (0.0/hr) NREM: 0 (0.0/hr) 0 (0.0/hr) REM: 0 (0.0/hr) 0 (-/hr) Total Sleep: 0 (0.0/hr) 0 (0.0/hr) Pressure Analysis Time (hh:mm:ss) IP/EP/O2 TST Supine Non-Sup. REM Non-REM REM Sup. 0/0/1 2:59:00 1:56:30 1:02:30 0:00:00 2:59:00 0:00:00 Respiratory Event Counts IP/EP/O2 Obstr. Ap. Mixed Ap. Central Ap. Hypopneas* RERAs 0/0/1 0 0 0 75 1 *Includes all types of hypopneas: those associated with arousals or ?3% desaturations. Respiratory Indices (events per hour) IP/EP/O2 OAI LASHAWN JAZIEL HI* RDI 0/0/1 0.0 0.0 0.0 25.1 25.5 *Includes all types of hypopneas: those associated with arousals or ?3% desaturations. Respiratory Indices (events per hour) IP/EP/O2 AHI Supine Non-Sup. REM Non-REM 0/0/1 25.1 21.6 31.7 0.0 25.1 *Includes all types of hypopneas: those associated with arousals or ?3% desaturations. Oxygen Saturations Transcutaneous CO2 Levels (torr) IP/EP/O2 Minimum Mean Mean REM Mean NREM Mean Sleep 0/0/1 90 92 0.0 39.1 39.1 Graphs CPAP/Bi-Level PLMs Body Position documented in this encounter Plan of Treatment Scheduled Referrals Name Type Priority Associated Diagnoses Orde r Schedule Referral to Sleep Disorders Center Outpatient Referral Routine ELO (obstructive sleep apnea) Ordered: 05/03/2016 documented as of this encounter Visit Diagnoses Diagnosis ELO (obstructive sleep apnea) Obstructive sleep apnea (adult) (pediatric) Nocturnal hypoxemia Hypoxemia documented in this encounter Care Teams Cup Machine Operator Relationship Specialty Start Date End Date Mary Alice Cage APRN PCP - General 10/12/11 11/12/18 documented as of this encounter
--- OUTSIDE RECORDS SUMMARY | 2024-03-17 18:31 | XMS_ITS | Encounter Summary ---
Author Organization [facility] [place] [address] Care Team Providers Care Cake Decorator Name Role Phone Mary Alice Cage MANUELA Primary Care Provider [phone] Encounter Details Date Type Department Care Team (Late st Contact Info) Description 09/26/2015 Orders [place] [address] Osmany Holloway MD [facility] PULMON[facility] MEDIC[facility] [place] [id number] Syncope, unspecified syncope type Social History Tobacco Use Types Packs/Day Years Used Date Smoking Tobacco: Every Day Cigarettes 1 20 Smokeless Tobacco: Never Comments:pt would like to sp eak with someone about quiting. Tobacco cessation packet given Alcohol Use Standard Drinks/Week Comments No 0 (1 standard drink = 0.6 oz pure alcohol) stopped drinking 2 yrs. ago after a surgery in 2010 Sex and Gender Information Value Date Recorded Sex Assigned at Not on file Gender Identity Not on file Sexual Orientation Not on file documented as of this encounter Plan of Treatment Not on file documented as of this encounter Results * Laura (11/22/2015 10:19 AM EDT) Anatomical Region Laterality Modality Other Narrative 12/15/2015 12:48 PM EDT See separate report Osmany Overton MD [facility] DERAB[facility] documented in this encounter Visit Diagnoses Diagnosis Syncope, unspecified syncope type Syncope, unspecified syncope type documented in this encounter Care Teams Cake Decorator Relationship Specialty Start Date End Date Mary Alice Cage APRN PCP - General 10/12/11 11/12/18 documented as of this encounter
--- OUTSIDE RECORDS SUMMARY | 2024-03-17 18:31 | XMS_ITS | Encounter Summary ---
[place] [address] Care Team Providers Care Tubular Splitting Machine Tender Name Role Phone HarneyMary Alice davis Rajendra ROY Primary Care Provider [phone] Encounter Details Date Type Department Care Team (Late st Contact Info) Description 11/24/2015 [place] [id number] Chandni Hager MD [facility] [place] [address] Social History Tobacco Use Types Packs/Day Years [...] encounter Miscellaneous Notes * Telephone Encounter - Chandni Hager MD - 11/24/2015 5:29 PM EDT 54 y.o. female with dyspnea, diaphragmatic weakness, with cervical nerve compression (s/p surgery) at multiple levels. S/P lumbar surgery for spinal stenosis, with residual incontinence. Still with cough, sputum, wheezing.?? States that she has had multiple syncopal episodes, without palpitations or lightheadedness.?? Cardiac ECHO showed good LV systolic function and moderately elevated PAS.?? Onmultiple antihypertensives. She got Zio patch placed on 11/21 by the order of her electronic system engineer. She called that her Zio came off after shower yesterday. She taped the bottom part of it. Wondering what se should do. She did call somebody yesterday and was expecting a call today (but it didn't happen). I will forward the note and talk to Zio department tomorrow. Her mom's apartment number is [phone] (she is leaving some time tomorrow to got there). Will forward note to Dr. Holloway as well. documented in this encounter Plan of Treatment Not on file documented as of this encounter Visit Diagnoses Not on filedocumented in this encounter Care Teams Tubular Splitting Machine Tender Relationship Specialty Start Date End Date Mary Alice Cage APRN PCP - General 10/12/11 11/12/18 documented as of this encounter
--- OUTSIDE RECORDS SUMMARY | 2024-03-17 18:31 | XMS_ITS | Encounter Summary ---
[place] [address] Care Team Providers Care Pamphlet Distributor Name Role Phone Lane Mary Alicepham Drew APRN Primary Care Provider [phone] Reason for Referral * Consultation (Routine) - Closed Specialty Diagnoses / Procedures Referred By Contluisa t Referred To Contact Pain Management Diagnoses Chronic right-sided low back pain without sciatica Rios Acuna MD [facility] [place] [address] [facility] [address] [place] [address] Referral ID Status Reason Start Date Expiration Date V isits Requested Visits Authorized [id number] Closed Consult, Test & Treat 02/27/2016 02/26/2017 1 1 Reason for Visit * Reason Comments Back Pain lower back pain Right Leg Pain upper thigh Encounter Details Date Type Department Care Team (Late st Contact Info) Description 02/27/2016 3:20 PM EDT Office [place] [id number] Rios Acuna MD [facility] [place] [address] Chronic right-sided low back pain without sciatica Social History Tobacco Use Types Packs/Day Years [...] as of this encounter Progress Notes * Rios Acuna MD - 02/27/2016 3:20 PM EDT DATE OF SURGERY: 08/31/14 SURGERY: Right L4-L5 far lateral diskectomy. INTERVAL HISTORY: Ms. Mclaughlin returns today about a year and a half out from surgery. She initially did quite well. About 2 months ago, she notes that she was passing out frequently due to a medication and injured her back. Since then, she is having increasing low back pain that radiates to her right greater than left buttock and posterior thigh. She rarely gets any pain distal to her knee. The pain at the belt line and in the buttocks is the worst. It tends to be worse with standing and walking. She feels that the right lower extremity is numb and weak. She has been taking Vicodin, Tylenol and ibuprofen that have helped to some degree. She has not had any recent physical therapy or injections. PHYSICAL EXAM: GENERAL: The patient is comfortable, no acute distress. BACK: She has a well-healed right paramidline incision. Her back is somewhat tender to palpation. NEUROLOGIC EXAM: She has 5 out of 5 strength in all lower extremity motor groups. She has some diffusely altered sensation throughout the right lower extremity. Reflexes are trace at the knees and ankles and symmetric. IMAGING: AP and lateral flexion-extension x-rays of the lumbar spine demonstrate a subtle apex to the left curve in the lower lumbar spine on the AP view. On the lateral view, she has some degenerative changes throughout the lumbar spine, including grade I L5-S1 spondylolisthesis. That is new compared to the prior image. It does not translate or rotate much with flexion or extension. MRI of the lumbar spine with and without contrast obtained today demonstrates the grade I spondylolisthesis at L5 on S1. It appears to be degenerative in nature. She has some scar formation in the far lateral space at L4-L5 where she had her far lateral diskectomy. ASSESSMENT/PLAN: Ms. Mclaughlin is a 55-year-old female who has acute on chronic low back pain for the last 2 months. She does not have any clear cut radicular symptoms. She wants to discuss the possibility of an injection, so I am going to refer her to the Pain Clinic to determine what injection they think would help her most. I recommend she also start some physical therapy after she has an injection. I do not see a role for surgery in her case. documented in this encounter Plan of Treatment Scheduled Referrals Name Type Priority Associated Diagnoses Orde r Schedule Referral to Pain Clinic Outpatient Referral Routine Chronic right-sided low back pain without sciatica Ordered: 02/27/2016 documented as of this encounter Visit Diagnoses Diagnosis Chronic right-sided low back pain without sciatica documented in this encounter Care Teams Pamphlet Distributor Relationship Specialty Start Date End Date Mary Alice Cage APRN PCP - General 10/12/11 11/12/18 documented as of this encounter
--- OUTSIDE RECORDS SUMMARY | 2024-03-17 18:31 | XMS_ITS | Encounter Summary ---
Author Organization [facility] Address [facility] Musa friendh[address] [address] Care Team Providers Care Camper Assembler Name Role Phone Mary Alice Cage MANUELA Primary Care Provider [phone] Encounter Details Date Type Department Care Team (Latest Contact Info) Description 02/27/2016 2:15 PM EDT - 02/27/2016 11:59 PM EDT Hospital Encounter XRay at [address] [place] [address] Rios Acuna MD [facility] [place] [address] Low back pain, unspecified back pain laterality, unspecified chronicity, with sciatica presence unspecified Discharge Disposition: Home Social History Tobacco Use [...] Inhalational Spacing Device Spcr 2 puffs by [facility].(Non-Drug; Combo Route) route daily. promethazine (PHENERGAN) 25 [...] LUMBAR SPINE 2 OR 3 VIEWS Routine 02/27/2016 2:58 PM EDT Low back pain, unspecified back pain laterality, unspecified chronicity, with sciatica presence unspecified documented in this encounter Results * XR Lumbar Spine 2 Or 3 Views (GENERIC) (02/27/2016 2:58 PM EDT) Anatomical Region Laterality Modality L-spine N/A Digital Radiogra phy Impressions 02/27/2016 5:08 PM EDT Interval increase in degree of anterior spondylolisthesis of L5 upon S1. Narrative 02/27/2016 5:08 PM EDT EXAMINATION: XR LUMBAR SPINE 2 OR 3 VIEWS CLINICAL HISTORY: AP lat flex/ext 3 views to eval lumbar back pain TECHNIQUE: AP and lateral flexion and extension views of the lumbar spine. COMPARISON: 09/16/2014. FINDINGS: There are five nonrib-bearing lumbar-like vertebrae. [...] lower abdominal aorta and common iliac arteries. Procedure Note Cirilo Bañuelos MD - 02/27/2016 EXAMINATION: XR LUMBAR SPINE 2 OR 3 VIEWS CLINICAL HISTORY: AP lat flex/ext 3 views to eval lumbar back pain TECHNIQUE: AP and lateral flexion and extension views of the lumbarspine. COMPARISON: 09/16/2014. FINDINGS: There are five nonrib-bearing lumbar-like vertebrae. Mild levoconvexlumbar scoliosis is unchanged. Vertebral body height and vertebral body alignmentof L1-L5 is normal. There has been an interval increase in the degree ofanterior spondylolisthesis of L5 upon S1 which is now approaching a grade 2. I donot see a definite spondylolisthesis at this level. Facet joint hypertrophy and sclerosis are present at L4-L5 and L5-S1. Calcification is seen in thelower abdominal aorta and common iliac arteries. IMPRESSION Interval increase in degree of anterior spondylolisthesis of L5 upon S1. Rios Acuna MD IMG DX ORDERABLES documented in this encounter Visit Diagnoses Diagnosis Low back pain, unspecified back pain laterality, unspecified chronicity, with sciatica presence unspecified documented in this encounter Care Teams Camper Assembler Relationship Specialty Start Date End Date Mary Alice Cage APRN PCP - General 10/12/11 11/12/18 documented as of this encounter
--- OUTSIDE RECORDS SUMMARY | 2024-03-17 18:31 | XMS_ITS | Encounter Summary ---
Author Organization Pending [facility] To [facility] Address [facility] [place] [address] Care Team Providers Care Certified Prosthetist/Orthotist Name Role Phone Mary Alice Caeg MANUELA Primary Care Provider Encounter Details Date Type Department Care Team (Latest Contact Info) Description 11/22/2015 10:00 AM EDT - 11/22/2015 11:59 PM EDT Hospital Encounter Non-[place] [phone] Osmany Holloway MD [facility] PULMONARY MEDICINE [place] [id number] Syncope, unspecified syncope type Discharge Disposition: Home Social History Tobacco [...] Start Date End Date OXYGEN-AIR DELIVERY SYSTEMS ([facility] [...] [facility] [place]Non-Drug; Combo Route) route daily. promethazine [...] lung Take 10 mg by mouth daily. rOPINIRole (REQUIP) 0.5 mg Tablet Take 0.5 mg by mouth nightly. 11/15/2015 05/16/2016 Miscellaneous Medical Supply MiscIndications:PAH (pulmonary artery hypertension) [...] mouth daily. 5 tablet 3 02/21/2015 12/20/2016 dexlansoprazole (DEXILANT) 60 mg Cap, Delayed Rel., Multiphasic Take 1 capsule by mouth daily. 30 capsule 11 11/18/2014 11/26/2015 spironolactone (ALDACTONE) 25 mg Tablet Take 25 [...] Procedure Name Priority Date/Time Associated Diagnosis Comments MARIA EUGENIA Routine 11/22/2015 10:19 AM EDT Syncope, unspecified syncope type documented in this encounter Results * Ziopatch (11/22/2015 10:19 AM EDT) Anatomical Region Laterality Modality Other Narrative 12/15/2015 12:48 PM EDT See separate report Osmany Overton MD CARDIAC SERVICES OR DERABLES documented in this encounter Visit Diagnoses Diagnosis Syncope, unspecified syncope type documented in this encounter Care Teams Certified Prosthetist/Orthotist Relationship Specialty Start Date End Date Mary Alice Cage APRN PCP - General 10/12/11 11/12/18 documented as of this encounter
--- OUTSIDE RECORDS SUMMARY | 2024-03-17 18:31 | XMS_ITS | Encounter Summary ---
[place] [address] Care Team Providers Care Concrete Swimming Pool Installer Name Role Phone Mary Alice Cage APRN Primary Care Provider [phone] Encounter Details Date Type Department Care Team (Late st Contact Info) Description 01/30/2016 [place] [address] Gardenia Bueno CMA GASTROENTEROLOGY DEPT Social History [...] Telephone Encounter - Gardenia Bueno CMA - 01/30/2016 8:38 AM EDT Medication Prior Authorization 4L Gastroenterology / [place] [address] Subscriber Insurance: optum rx Physician: Justin Starkey Return [facility]acy: [facility] Medication Requested: Viberzi Strength: 100 mg Frequency: BID Disp.: 60 Refills: 5 Currently taking: no Diagnosis for this medication: IBS-D ICD-10 code: k58.0 Prior medications trialed in this patient: Lomotil, xifaxan Medication: Outcome/Adverse Reactions: treatment failure Decision: Approved Tracking number/ Effective date: Start: End: 08/11/2016 documented in this encounter Plan of Treatment Not on file documented as of this encounter Visit Diagnoses Not on filedocumented in this encounter Care Teams Concrete Swimming Pool Installer Relationship Specialty Start Date End Date Mary Alice Cage APRN PCP - General 10/12/11 11/12/18 documented as of this encounter
--- OUTSIDE RECORDS SUMMARY | 2024-03-17 18:31 | XMS_ITS | Encounter Summary ---
[place] [address] Care Team Providers Care Travel Specialist Name Role Phone GrundyMary Alice davis Rajendra ROY Primary Care Provider [phone] Encounter Details Date Type Department Care Team (Late st Contact Info) Description 09/16/2015 Telephone [place] [phone] Ines Lopez, RN Social History Tobacco Use Types Packs/Day [...] encounter Miscellaneous Notes * Telephone Encounter - Ines Lopez RN - 09/16/2015 4:42 PM EST Order for overnight oximetry faxed to [facility]. Order for face mask for oxygen faxed to [facility]. documented in this encounter Plan of Treatment Not on file documented as of this encounter Visit Diagnoses Diagnosis COPD, moderate Chronic airway obstruction, not elsewhere classified PAH (pulmonary artery hypertension) Other chronic pulmonary heart diseases Syncope, unspecified syncope type documented in this encounter Care Teams Travel Specialist Relationship Specialty Start Date End Date Mary Alice Cage APRN PCP - General 10/12/11 11/12/18 documented as of this encounter
--- OUTSIDE RECORDS SUMMARY | 2024-03-17 18:31 | XMS_ITS | Encounter Summary ---
Author Organization [facility] [place] [address] Care Team Providers Care Glass Blower Helper Name Role Phone Mary Alice Cage APRN Primary Care Provider [phone] Reason for Referral * Consultation (Routine) - Closed Specialty Diagnoses / Procedures Referred By Contac t Referred To Contact Sleep Center Diagnoses Snoring Excessive daytime sleepiness Unrefreshed by sleep Shobha Duke APRN [facility] [place] [address] [facility] Sleep Medicine [address] [place] [address] Referral ID Status Reason Start Date Expiration Date V isits Requested Visits Authorized [id number] Closed Test Only 04/23/2016 04/23/2017 1 1 Reason for Visit * Consultation (Routine) - Specialty Diagnoses / Procedures Referred By Contac t Referred To Contact Sleep Center Diagnoses PAH (pulmonary artery hypertension) Osmany Holloway MD [facility] [place] [address] [facility] Sleep Medicine [address] [place] [address] Referral ID Status Reason Start Date Expiration Date V isits Requested Visits Authorized [id number] Consult, Test & Treat Connection Center 12/23/2015 12/22/2016 5 5 Encounter Details Date Type Department Care Team (Late st Contact Info) Description 04/23/2016 10:00 AM EDT Office Visit Sleep Center at [address] [place] [address] Shobha Duke, MANUELA [facility] [place] [address] Snoring; Excessive daytime sleepiness; Unrefreshed by sleep Social History Tobacco Use Types Packs/Day Years [...] Sign Reading Time Taken Comments Blood Pressure 142/86 04/23/2016 9:41 AM EDT Pulse 80 04/23/2016 9:41 AM EDT Temperature - - Respiratory Rate - - Oxygen Saturation 93% 04/23/2016 9:41 AM EDT Inhaled Oxygen Concentration - - Weight 90.6 kg (199 lb 11.2 oz) 04/23/2016 9:41 AM EDT Height 157.5 cm (5' 2) 04/23/2016 9:41 AM EDT Body Mass Index 36.53 04/23/2016 9:41 AM EDT documented in this encounter Progress Notes * Shobha Duke, MANUELA - 04/23/2016 10:00 AM EDT Sleep Medicine Consultation Note HPI: Poppy Mclaughlin is a 55 y.o. female seen at the request of Dr. Osmany Holloway for advice regarding patient's pulmonary arteriole hypertension (PAH). Her says she snores loudly, wakes with dry mouth most mornings but denies nocturnal gasping, witnessed apneas, and nasal obstructions. She has been on nocturnal oxygen at around 2lpm for 6-8 months. Mrs. Mclaughlin reports sometimes she sleeps better with it on, sometimes not. Mrs. Mclaughlin sleeps with a pillow under her arm and another pillow perpendicular to her between her middle and low back. She has a cervical and lumbar plate and can tell if she's at a good sleep position. Bedtime is 10:30p-2a (she takes her medicine at 10p), ligh ts are out, is already asleep. Sleep latency is up to a half hour. She wakes after about 4 hours to void, get a drink or for unknown reasons, is able to fall back asleep quickly, but she justmay stay up, especially if she wakes at say, 5am. Wake time is within 4 hours of when she goes to sleep or she may go back to sleep and then wake at 8am. She often wakes unrefreshed. Mrs. Mclaughlin may get 4-6 hours sleep per night. If she has a chance to nap during the day; she will also doze, too. She knows when he she needs to lay down and reports occasional daytime cognitive difficulty. Patient reports her mother is older than she and her mother can last longer than patient can (like during shopping). She drives but will not get drowsy, yet she can fall asleep as a passenger. No driving close calls or accidents in the past. HPI continues below. Daytime Symptoms: Patient-reported scores: Eldena: 13 MEAGAN 24 Other Associated Sleep Symptoms: Parasomnias: Sleep Walking: no Dream Enactment: yes, she will rock and moan and may fall out of bed and she may wake up with her head on the nightstand Bruxism: yes, no mouth guard, has TMJ; Motor: RLS: yes, on Requip via PCP for about a year, not sure if it helps much PLMS: doesn't know, though when she had stuff on her nightstand, it would get all over and break Narcolepsy: Hallucinations: no Paralysis: no Cataplexy: none Family History: Family history of sleep disorders: mom has sleep apnea, uses machine ROS: CON: weight change: weight gain over the past several years ENT: nasal obstruction: none Environmental allergies: yes, pollen, hayfever PUL: THOMAS: yes, has nodules in her lungs (granulatomas) CV: chest pain: no Palpitations: yes, sometimes but when she's trying to leiva if she overextends LE edema: yes, bilateral swelling in calves, ankles, feet, may not take lasix if she needs to do things GI: GERD: yes, Dexilant helps; nutcracker syndrome (takes Bentyl) : Nocturia: no, maybe twice at most MSK: Pain: yes, keeps her from getting to sleep and staying asleep NEURO: sleep related headaches: no, they were taken care of when she had her spinal fusion PSY: Depression: yes, on Celexa which helps Anxiety: yes, see depression Past Surgical History: Past Surgical History Procedure Laterality Date ??? Pro unlisted diagnostic gastroenterology procedure [address] jimenez ??? Pro lap, cholecystectomy/graph 11/04/2012 LAPAROSCOPIC CHOLECYSTECTOMY WITH CHOLANGIOGRAM performed by Abel Carlton MD at [facility] ??? Pro arthrodesis, ant interbody,decompression; cervical below c2 09/08/2013 ARTHRODESIS, ANT INTERBODY,DECOMPRESSION; CERVICAL BELOW C2 performed by Rios Acuna MD at [facility] ??? Pro arthrd ant interdy cervcl belw c2 ea addl ntrspc 09/08/2013 @ARTHRODESIS ANT INTERBDY CERVCL BELOW C2 EA ADDL INTRSPACE performed by iRos Acuan MD at [facility] ??? Pro anterior instrumentation 2-3 vertebral segments 09/08/2013 @ANT. SPINAL INSTRUMENTATION, 2-3 VERTEBRA, SEGMENTED performed by Rios Acuna MD at [facility] ??? Pro allograft for spine surgery only structural 09/08/2013 ALLOGRAFT FOR SPINE SURGERY ONLY; STRUCTUAL performed by Rios Acuna MD at [facility] ??? Pro decompress spinal cord, 1 seg Right 08/31/2014 TRANSPEDICULAR LUMBAR DECOMPRESSION SPINAL CORD,EQUINA & NERVE ROOTS, ONE LVL. performed by Rios Acuna MD at [facility] ??? Right 08/31/2014 MODIFIER L4 performed by Rios Acuna MD at [facility] ??? Right 08/31/2014 MODIFIER L5 performed by Rios Acuna MD at [facility] OR ??? Pro upper gi endoscopy, diagnostic N/A 10/26/2015 EGD, UPPER GI ENDOSCOPY performed by Apolinar Sepulveda MD at [facility] ??? Pro upper gi endoscopy, biopsy N/A 10/26/2015 UPPER GASTROINTESTINAL ENDOSCOPY,WITH BIOPSY SINGLE OR MULTIPLE performed by Apolinar Sepulveda MDat [facility] END[facility] Past Medical History: Past Medical History Diagnosis Date ??? Allergy liquid abuterol, egg sensitivity ??? Breathing problem im seeing dr zapata ??? Chronic pain ??? Diabetes mellitus 03/19/2016 ??? Digestive problems - ?? gerd, nutcracker syndrome abdominal gistention dr holder ??? ENT disease 3-[address] alex ??? Headache(784.0) ? Hypertensive disease they have said my bp is running high ??? Skin disorder ?? acne Problem List: Patient Active Problem List Diagnosis [...] ??? Chronic low back pain M54.5, G89.29 Medications: Outpatient Prescriptions Marked as Taking for the 04/23/16 encounter (Office Visit) with Shobha Duke APRN Medication Sig Dispense Refill ??? gabapentin (NEURONTIN) 300 mg Capsule ??? oxyCODONE (ROXICODONE) 10 mg Tablet ??? albuterol (PROVENTIL) 2.5 mg /3 mL [...] 30 capsule 5 ??? Miscellaneous Medical Supply [facility] Face mask for nocturnal O2 1 each PRN ??? simvastatin (ZOCOR) 20 mg Tablet Take 20 mg by mouth nightly. ??? OXYGEN-AIR DELIVERY SYSTEMS ([facility] by [facility].(Non-Drug; Combo Route) route [...] Inhalational Spacing Device Spcr 2 puffs by [facility].(Non-Drug; Combo Route) route [...] mouth daily. 90 tablet 3 Social History: Living situation: lives her Employment: doesn't work, on disability Alcohol: none for > 6 years Smoking: yes, about 1.5 pack per day Caffeine: yes, daily, has to have a cup of coffee before going to sleep Other drugs: none PE: BP 142/86 Pulse 80 Ht 157.5 cm (5' 2) Wt 90.6 kg (199 lb 11.2 oz) SpO2 93% BMI 36.53 kg/m2 General: 55yo F, NAD, pleasant Eyes: PERRL, conjunctiva clear ENT: oropharynx MP: 4, narrow airway passage, high hard palate Crowded: yes, small mouth Dentition: poor Mandibular structure and position: normal occlusion NECK: Submental fat present: yes, supple, no LAD, no thyroid enlargement Circumference: 16 inches LUNGS: respirations even and unlabored; CTA, rhonchi heard lower left lobe upon expiration CV: RRR, no m/g/r (+) non-pitting bilateral LE edema ABD: BS+, soft, non-tender, no HSM NEURO: gait and station normal, no tremor SKIN: warm and dry PSYCH: Alert and appropriate: yes Oriented to person, place and time: AOx3 Affect: normal Judgement and insight: intact Assessment: Poppy Mclaughlin is a 55 y.o. female with a history of snoring, excessive daytime sleepiness, unrefreshed sleep, inadequate sleep, xerostomia, daytime cognitive difficulty, and a family history of sleep apnea. Patient is on supplemental nocturnal oxygen at about 3lpm in relation to moderate COPD, pulmonary hypertension, syncope. Mrs. 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 Significant comorbidities include hypertension, PAH, moderate COPD, syncope, dyspnea, urinary retention, depression, anxiety, GERD, chronic diarrhea, chronic low back pain (see Problem List above). Patient current smokes 1.5 ppd cigarettes. Mrs. Mclaughlin's history and symptoms are suspicious for obstructive sleep apnea. The diagnosis of obstructive sleep apnea was reviewed in detail with the patient at this time. Potential consequences ofuntreated obstructive sleep apnea reviewed. Treatment options reviewed in detail. Questions regarding diagnosis and management answered at this time. Patient education included how caffeine, smoking,and alcohol intake may impact sleep. Recommend in-lab diagnostic split PSG, on supplemental oxygen,with TCO2, and good EMG leads to monitor chin/leg movements. The patient confirms that study results can be called to [phone] (M) and a detailed message left if they are not available for call. Time spent face to face: 60 minutes Recommendations: --Overnight diagnostic split PSG, with supplemental oxygen, TCO2 monitoring, good EMG leads for recording leg movement --Role of weight loss reviewed --Safe driving precautions reviewed with the patient. The patient indicates understanding of these issues and agrees with the plan. Shobha Duke APRN Cc: Osmany Holloway MD, Mary Alice Cgae APRN documented in this encounter Plan of Treatment Scheduled Referrals Name Type Priority Associated Diagnoses Orde r Schedule Referral to Sleep Disorders Center Outpatient Referral Routine Snoring Excessive daytime sleepiness Unrefreshed by sleep Ordered: 04/23/2016 documented as of this encounter Visit Diagnoses Diagnosis Snoring Other dyspnea and respiratory abnormality Excessive daytime sleepiness Unrefreshed by sleep Other sleep disturbances documented in this encounter Care Teams Glass Blower Helper Relationship Specialty Start Date End Date Mary Alice Cage APRN PCP - General 10/12/11 11/12/18 documented as of this encounter
--- OUTSIDE RECORDS SUMMARY | 2024-03-17 18:31 | XMS_ITS | Encounter Summary ---
[place] [address] Care Team Providers Care Aircraft Refueler Name Role Phone [place] Mary Alicepham Drew APRN Primary Care Provider [phone] Reason for Visit * Reason Comments Pain Management * Consultation (Routine) - Closed Specialty Diagnoses / Procedures Referred By Chava t Referred To Contact Pain Management Diagnoses Chronic right-sided low back pain without sciatica Rios Acuna MD [facility] [place] [address] [facility] [address] [place] [phone] Referral ID Status Reason Start Date Expiration Date V isits Requested Visits Authorized [id number] Closed Consult, Test & Treat 02/27/2016 02/26/2017 1 1 Encounter Details Date Type Department Care Team (Latest Contact Info) Description 03/27/2016 3:00 PM EDT Office [place] [address] Kim Forbes DO [facility] [place] [address] Radiculopathy of lumbar region Social History Tobacco Use Types Packs/Day Years [...] Sign Reading Time Taken Comments Blood Pressure 155/111 03/27/2016 2:59 PM EDT Pulse 116 03/27/2016 2:59 PM EDT Temperature - - Respiratory Rate - - Oxygen Saturation 94% 03/27/2016 2:59 PM EDT Inhaled Oxygen Concentration - - Weight 88.9 kg (196 lb) 03/27/2016 2:59 PM EDT Height 152.4 cm (5') 03/27/2016 2:59 PM EDT Body Mass Index 38.28 03/27/2016 2:59 PM EDT documented in this encounter Progress Notes * Kim Forbes DO - 03/27/2016 3:00 PM EDT This is a 55 year old female who presents for consultation for low back and leg pain. We briefly reviewed her history, examination and MRI. I offered a cuadal epidural steroid injection and she did consent to this after we discussed the risks, benefits, and indications. KIM FORBES DO, MPH Well [employer] Instructor of Anesthesiology/[employer] [facility] Certified [employer]ell Engineer, Pain Medicine Fellowship ABPM[employer]R - Subspecialty board certification in Pain Medicine documented in this encounter Plan of Treatment Scheduled Referrals Name Type Priority Associated Diagnoses Orde r Schedule Referral to Pain Clinic Outpatient Referral Routine Chronic right-sided low back pain without sciatica Ordered: 02/27/2016 documented as of this encounter Visit Diagnoses Diagnosis Radiculopathy of lumbar region Thoracic or lumbosacral neuritis or radiculitis, unspecified documented in this encounter Care Teams Aircraft Refueler Relationship Specialty Start Date End Date Mary Alice Cage APRN PCP - General 10/12/11 11/12/18 documented as of this encounter
--- OUTSIDE RECORDS SUMMARY | 2024-03-17 18:31 | XMS_ITS | Encounter Summary ---
[place] [address] Care Team Providers Care Clinical Trial Educator Name Role Phone Mary Alice Cage APRN Primary Care Provider [phone] Encounter Details Date Type Department Care Team (Late st Contact Info) Description 01/27/2016 Telephone [place] [phone] Eloise Nicole Social History Tobacco Use Types Packs/Day Years [...] filedocumented in this encounter Care Teams Clinical Trial Educator Relationship Specialty Start Date End Date Mary Alice Cage APRN PCP - General 10/12/11 11/12/18 documented as of this encounter
--- OUTSIDE RECORDS SUMMARY | 2024-03-17 18:31 | XMS_ITS | Encounter Summary ---
Author Organization [facility] [place] [address] Care Team Providers Care Teacher Lip Reading Name Role Phone ColquittMary Alice davis Rajendra ROY Primary Care Provider [phone] Reason for Visit * Reason Comments Follow-up Encounter Details Date Type Department Care Team (Late st Contact Info) Description 12/09/2015 3:00 PM EDT Office [place] [address] Osmany Holloway MD [facility] [place] [address] COPD, moderate Social History Tobacco Use Types [...] Sign Reading Time Taken Comments Blood Pressure 113/74 12/09/2015 2:55 PM EDT Pulse 99 12/09/2015 2:55 PM EDT Temperature - - Respiratory Rate 20 12/09/2015 2:55 PM EDT Oxygen Saturation 97% 12/09/2015 2:55 PM EDT Inhaled Oxygen Concentration - - Weight 88.5 kg (195 lb) 12/09/2015 2:55 PM EDT Height 154.9 cm (5' 1) 12/09/2015 2:55 PM EDT Body Mass Index 36.84 12/09/2015 2:55 PM EDT documented in this encounter Progress Notes * Osmany Holloway MD - 12/09/2015 4:12 PM EDT PULMONARY MEDICINE Follow-Up Follow-up 55 y.o. female with dyspnea, diaphragmatic weakness, with cervical nerve compression (s/psurgery) at multiple levels. Continued cough, sputum, wheezing, and moderately elevated PAS on ECHO. Still smoking 1ppd. Recently had Ziopatch for syncope evaluation. PAST MEDICAL HISTORY: Patient Active Problem List [...] R55 ??? PAH (pulmonary artery hypertension) I27.2 MEDICATIONS: Outpatient Prescriptions Marked as Taking for the 12/09/15 encounter (Office Visit) with Osmany Holloway MD Medication Sig Dispense Refill ??? DEXILANT 60 mg Cap, Delayed Rel., Multiphasic TAKE ONE CAPSULE BY MOUTH ONCE DAILY 30 capsule 5 ??? Miscellaneous Medical Supply Misc Face mask for nocturnal O2 1 each PRN ??? HYDROcodone-acetaminophen (VICODIN) 5-300 mg Tablet Take 1 tablet by mouth every 4 hours. 10 mg ??? simvastatin (ZOCOR) 20 mg Tablet Take 20 mg by mouth nightly. ??? OXYGEN-AIR DELIVERY SYSTEMS ([facility] [place] by [facility].(Non-Drug; Combo Route) route nightly. ??? chlorpheniramine (CHLOR-TRIMETON) [...] Inhalational Spacing Device Spcr 2 puffs by [facility].(Non-Drug; Combo Route) route daily. ??? fluticasone (FLONASE) [...] 24 hrs Temperature Heart Rate Heart Rate: 99 Heart Rate: [99] Blood Pressure BP: 113/74 mmHg BP: (113)/(74) Respiratory Rate Resp: 20 Resp: [20] SpO2 SpO2: 97 % SpO2: [97 %] WDWN 55 y.o. female in NAD. HEENT-NC/AT; unremarkable Neck-supple without masses or, nodes Chest- quiet BS with coarse rhonchi bilat Heart-Normal rate and rhythm, without murmers, gallops, or rubs. Abdomen-benign without organomegaly or tenderness Extremities-no cyanosis, clubbing; tr LE edema Skin-no rashes or lesions Musculoskeletal-no joint swelling, tenderness, redness or deformities Neurologic-Nonfocal, without weakness or sensory deficits Lymphatics-unremarkable FVC 2.27L (73%), FEV1 1.63L (66%), FEV1/FVC 72%. Diffusing capacity 48%. Mild restrictive physiology with significant diffusion abnormality. IMPRESSION: In summary, this is a 55 y.o. female with restrictive lung physiology, primarily extraparenchymal. Clinically has airflow obstruction, and she clear benefits from treatment for OAD. Continues on 2L/M O2 at night and had a repeat oximetry, the results of which are not in the record. Ziopatch results are not available. Will give her a course of Bactrim for her exacerbation of bronchitis. F/U 3 months with PFTs. Greater than 20 min of [...] this encounter Results * Pulmonary Function Testing (03/19/2016 10:35 PM EDT) Narrative Osmany Holloway MD - 03/19/2016 10:35 PM EDT Osmany Holloway MD ? 03/19/2016 10:35 PM No significant desaturation with exertion. Osmany Overton MD PFT ORDERABLES documented in this encounter Visit Diagnoses Diagnosis COPD, moderate Chronic airway obstruction, not elsewhere classified COPD, moderate Chronic airway obstruction, not elsewhere classified documented in this encounter Care Teams Teacher Lip Reading Relationship Specialty Start Date End Date Mary Alice Cage APRN PCP - General 10/12/11 11/12/18 documented as of this encounter
--- OUTSIDE RECORDS SUMMARY | 2024-03-17 18:31 | XMS_ITS | Encounter Summary ---
[place] [address] Care Team Providers Care Honing Job Setter Name Role Phone KnottMary Alice davis Rajendra ROY Primary Care Provider [phone] Reason for Visit * Reason Onset Date Comments Results 11/03/2015 Encounter Details Date Type Department Care Team (Late st Contact Info) Description 11/03/2015 Telephone [place] [address] Lyndsey Alejandro, RN Results Social History Tobacco Use Types Packs/Day Years [...] Telephone Encounter - Lyndsey Alejandro RN - 11/03/2015 1:09 PM EDT Patient calling to ask for results of recent upper endoscopy and PALMER study. Results not yet available. Patient will check in with us later next week. documented in this encounter Plan of Treatment Not on file documented as of this encounter Visit Diagnoses Not on filedocumented in this encounter Care Teams Honing Job Setter Relationship Specialty Start Date End Date Mary Alice Cage APRN PCP - General 10/12/11 11/12/18 documented as of this encounter
--- OUTSIDE RECORDS SUMMARY | 2024-03-17 18:31 | XMS_ITS | Encounter Summary ---
[place] [address] Care Team Providers Care Inspector Bicycle Name Role Phone NilesMary Alice Rajendra ROY Primary Care Provider [phone] Reason for Visit * Auth/Cert Specialty Diagnoses / Procedures Referred By Chava alejo Referred To Contact Diagnoses Gerd monomity off meds 2 weeks Procedures PRO UPPER GI ENDOSCOPY, DIAGNOSTIC EGD, UPPER GI ENDOSCOPY Referral ID Status Reason Start Date Expiration Date Visits Re quested Visits Authorized [id number] 1 1 Encounter Details Date Type Department Care Team (Latest Contact Info) Description 10/26/2015 10:00 AM EDT Procedure visit [place] [address] Stef Paul RN Gastroesophageal reflux disease, esophagitis presence not specified [...] as of this encounter Progress Notes * Stef Paul RN - 10/26/2015 10:30 AM EDT HROEM catheter placed via Left nare without difficulty. Patient tolerated procedure well. documented in this encounter Plan of Treatment Not on file documented as of this encounter Procedures Procedure Name Priority Date/Time Associated Diagnosis Comments UPPER GI ENDOSCOPY Routine 10/26/2015 12 :27 PM EDT documented in this encounter Results * UPPER GI ENDOSCOPY (10/26/2015 12:27 PM EDT) [facility] UPPER GI ENDOSCOPY [facility] Patient Name: Poppy Mclaughlin ? Procedure Date: 10/26/2015 12:27 PM ? N: [id number] ? Date of : 1960 ? Age: 55 ? Order #: [id number] ? Procedure: ? Upper GI endoscopy Indications: ? Dyspepsia Providers: ? Apolinar Sepulveda MD, Davon Hernandez. ? KAMLA Kiser, Hayde Murguia MD: ? Medicines: ? Fentanyl 200 micrograms IV, Midazolam ? 4 mg IV Complications: ? No immediate complications. Procedure: ? Pre-Anesthesia Assessment: ? - Prior to the procedure, a History ? and Physical was performed, and ? patient medications and allergies ? were reviewed. The patient is ? competent. The risks and benefits of ? the procedure and the sedation ? options and risks were discussed with ? the patient. All questions were ? answered and informed consent was ? obtained. Patient identification and ? proposed procedure were verified by ? the physician in the pre-procedure ? area. Mental Status Examination: ? alert and oriented. Airway ? Examination: normal oropharyngeal ? airway and neck mobility. Respiratory ? Examination: clear to auscultation. ? CV Examination: normal. Prophylactic ? Antibiotics: The patient does not ? require prophylactic antibiotics. ? Prior Anticoagulants: The patient has ? taken no previous anticoagulant or ? antiplatelet agents. ASA Grade ? Assessment: III - A patient with ? severe systemic disease. After ? reviewing the risks and benefits, the ? patient was deemed in satisfactory ? condition to undergo the procedure. ? The anesthesia plan was to use ? conscious anesthesia. Immediately ? prior to administration of ? medications, the patient was ? re-assessed for adequacy to receive ? sedatives. The heart rate, ? respiratory rate, oxygen saturations, ? blood pressure, adequacy of pulmonary ? ventilation, and response to care ? were monitored throughout the ? procedure. The physical status of the ? patient was re-assessed after the ? procedure. ? The procedure, indications, benefits, ? [...] ? procedure well. ? Findings: ? The esophagus was normal. There was no hiatal hernia ? or sign of esophagitis. The z-line was at 41 cm. ? The stomach was normal. Multiple biopsies were taken ? with the cold forceps of the antrum ? The examined duodenum was normal. Multiple biopsies ? were taken with the cold forceps of the duodenum ? PALMER Capsule subsequently placed at 35 cm.\B ? Impression: ?- Normal esophagus. ? - Normal stomach. ? - Normal examined duodenum. ? - Palmer capsule placed Recommendation: ?- Await pathology and PALMER capsule ? results ? ___ Apolinar Sepulveda MD 10/26/2015 1:20 PM This report has been signed electronically. Number of Addenda: 0 Note Initiated On: 10/26/2015 12:27 PM PROVATION 10/26/2015 12:2 7 PM EDT Unknown GENERAL SURGICAL ORD ERABLES PROVATION documented in this encounter Visit Diagnoses Diagnosis Gastroesophageal reflux disease, esophagitis presence not specified documented in this encounter Care Teams Inspector Bicycle Relationship Specialty Start Date End Date Mary Alice Cage APRN PCP - General 10/12/11 11/12/18 documented as of this encounter
--- OUTSIDE RECORDS SUMMARY | 2024-03-17 18:31 | XMS_ITS | Encounter Summary ---
Author Organization [facility] [address] Care Team Providers Care Youth Manager Name Role Phone BeadleMary Alice davis Rajendra ROY Primary Care Provider [phone] Reason for Visit * Reason Comments Right Leg Pain Encounter Details Date Type Department Care Team (Latest Contact Info) Description 03/27/2016 1:00 PM EDT Procedure [place] [address] [facility] [place] [address] Spinal stenosis, lumbar region, without neurogenic claudication Social History Tobacco Use Types Packs/Day Years [...] Sign Reading Time Taken Comments Blood Pressure 146/94 03/27/2016 3:32 PM EDT Pulse 104 03/27/2016 3:32 PM EDT Temperature - - Respiratory Rate - - Oxygen Saturation 97% 03/27/2016 3:32 PM EDT Inhaled Oxygen Concentration - - Weight 88.5 kg (195 lb) 03/27/2016 3:23 PM EDT Height 152.4 cm (5') 03/27/2016 3:23 PM EDT Body Mass Index 38.08 03/27/2016 3:23 PM EDT documented in this encounter Patient Instructions * Patient Instructions* Griselda Walker RN - 03/27/2016 1:00 PM EDT Pain Management Center Discharge Instructions: You were seen by Dr. Melchor Hartman DO and Trevor Acosta MD who performed Caudal Epidural Steroid Injection. It is normal that the injection site will be sore for up to 48 hours. You may also experience mild stiffness in the joint near the injection site. [x] You may resume your normal activities: tomorrow. You may shower today. DO NOT tub bathe, use whirlpools, hot tubs or pool therapy for 2 days. RemoveBand-Aid(s) later today/tomorrow. Do not drive until tomorrow. Use caution walking/climbing stairs as you may be unsteady on your feet. You may use your usual medications, including pain medications, as directed, unless otherwise instructed. You may use an ice pack as needed for the first 24 hours, on for 20 minutes then off for 20 minutes. Do not apply heat today. Attempt to empty your bladder 4-6 hours after your procedure. [x] If you have diabetes, monitor your blood sugars frequently. If your blood sugar increases and is of concern, contact your Primary Care Provider. You received the following medications: Omnipaque (contrast dye) and Dexamethasone Sodium [id number] mg. During regular business hours, please phone the Pain Management Center at for appointments or with any questions or if the following or other troubling symptoms develop: 1) Prolonged dizziness or weakness (more than 1 day). 2) Localized swelling, redness or drainage at the injection site(s). 3) Temperature of 101 degrees that lasts for more than 4 hours. After 5 PM or on weekends, call and ask for Pain Clinic provider on-call. If you are unable to reach the Pain Management Center and have a complication, please call your Primary Care Provider or proceed to your local emergency department. Griselda Walker RN documented in this encounter Progress Notes * Griselda Walker RN - 03/27/2016 1:00 PM EDT Pre-Procedure Screening Questions: 1. Status: No 2. Patient states they have a transit driver to transport after procedure? Yes 3. Patient taking antibiotics at present? No 4. NPO per Pain Management Center protocol? No 5. Patient diabetic: Yes Patient routinely taking anticoagulants ? No Patient Vital Signs documented in Doc Flowsheets associated with this encounter. Patient Discharge Instructions were reviewed with patient and copy provided to patient. documented in this encounter Procedure Notes * Trevor Acosta MD - 03/27/2016 1:00 PM EDTAssociated Order(s): EPIDURAL STEROID INJECTION Procedure(s): EPIDURAL STEROID INJECTION Pre-Procedure Diagnose(s): Spinal stenosis, lumbar region, without neurogenic claudication PROCEDURE NOTE CAUDAL EPIDURAL STERIOID INJECTION Date of Service: 03/27/2016 Patient: Poppy Mclaughlin Provider: Trevor Acosta MD Poppy Mclaughlin has been referred to the Pain Management Center for caudal epidural steroid injection. COMMENTS: Ms. Mclaughlin was interviewed and the medical record was reviewed. There were no medical, pharmacologic, radiographic or other structural contraindications to attempting fluoroscopically guided epiduralsteroid injection. Risks and expected side effects as well as potential benefit of the procedure were reviewed with Ms. Mclaughlin, and her voiced concerns were addressed. The printed consent form was signed and witnessed. Standard time-out procedure was performed. Ms. Mclaughlin was placed in the prone position on the fluoroscopy table and automated blood pressure cuff and pulse oximeter applied. The skin entry point for entering/approaching the epidural space by a caudal approach through the sacral hiatus ed identified with surgical skin marking. Following thorough chlorhexidine preparation x 2 of the skin and draping and 1% lidocaine infiltration of the skinentry point and subcutaneous tissues, a 17 gauge Touhy needle was placed under fluoroscopic guidance into the epidural space. Needle tip placement and depth were aided and confirmed by fluoroscopy in the lateral and AP position. There was no paresthesia or return of blood or CSF through the needle. 2 cc of Omnipaque 240 wasinjected with clear epidural spread confirmed with fluoroscopy. An Arrow 19G radio-opaque epidural catheter was advanced into the epidural space to the L4-5 and 2 cc of Omnipaque 240 was injected with clear epidural spread. 80 mg of Depomedrol was injected. There was no unusual discomfort expressedby Ms. Mclaughlin. Ms. Mclaughlin's vital signs were stable throughout the procedure and were as recorded in the docflowsheet by the nursing staff. If given, dosages of intravenous drugs for anxiolysis and analgesia were documented in MAR. Follow up plans and appointments were discussed with Ms. Mclaughlin. Post procedure instruction was given as documented in nursing documentation and having met discharge criteria, she was discharged fromthe Pain Management Center. COMMENTS: No apparent complications Repeat up to 3 times in a 12 month period. Follow-up with primary care physician. I was the attending physician supervising the resident in the above care and I was present with theresident for the entire procedure. Melchor Hartman DO, MPH [facility]-subspecialty board certification in Pain Medicine Attending Physician-Pain Management Thank you for the referral! CC: Mary Alice Domingo, MANUELA [address] [place] [address] MARY ALICE DOMINGO, MANUELA [address] [place] [address] documented in this encounter Plan of Treatment Not on file documented as of this encounter Procedures Procedure Name Priority Date/Time Associated Diagnosis Comments EPIDURAL STEROID INJECTION Routine 03/29/2016 2:11 PM EDT Spinal stenosis, lumbar region, without neurogenic claudication documented in this encounter Results * EPIDURAL STEROID INJECTION (03/29/2016 2:11 PM EDT) Narrative Melchor Hartman DO - 03/29/2016 2:11 PM EDT Melchor Hartman DO ? 03/29/2016 ??2:11 PM PROCEDURE NOTE CAUDAL EPIDURAL STERIOID INJECTION Date of Service: ??03/27/2016 Patient: ??Poppy Mclaughlin ?? Provider: ??Trevor Acosta MD ?? Poppy Mclaughlin has been referred to the Pain Management Center for caudal epidural steroid injection. ?? COMMENTS: Ms. Mclaughlin was interviewed and the medical record was reviewed. ?? There were no medical, pharmacologic, radiographic or other structural contraindications to attempting fluoroscopically guided epidural steroid injection. ??Risks and expected side effects as well as potential benefit of the procedure were reviewed with Ms. Mclaughlin, and her voiced concerns were addressed. The printed consent form was signed and witnessed. ??Standard time-out procedure was performed. Ms. Mclaughlin was placed in the prone position on the fluoroscopy table and automated blood pressure cuff and pulse oximeter applied. ??The skin entry point for entering/approaching the epidural space by a caudal approach through the sacral hiatus ed identified with surgical skin marking. ??Following thorough chlorhexidine preparation x 2 of the skin and draping and 1% lidocaine infiltration of the skin entry point and subcutaneous tissues, a 17 gauge Touhy needle was placed under fluoroscopic guidance ??into the epidural space. Needle tip placement and depth were aided and confirmed by fluoroscopy in the lateral and AP position. There was no paresthesia or return of blood or CSF through the needle. 2 cc of Omnipaque 240 was injected with clear epidural spread confirmed with fluoroscopy. An Arrow 19G radio-opaque epidural catheter was advanced into the epidural space to the L4-5 and 2 cc of Omnipaque 240 was injected with clear epidural spread. ??80 mg of Depomedrol was ??injected. There was no unusual discomfort expressed by Ms. Mclaughlin. Ms. Mclaughlin's vital signs were stable throughout the procedure and were as recorded in the docflowsheet by the nursing staff. ??If given, dosages of intravenous drugs for anxiolysis and analgesia were documented in MAR. Follow up plans and appointments were discussed with Ms. Mclaughlin. ?? Post procedure instruction was given as documented in nursing documentation and having met discharge criteria, she was discharged from the Pain Management Center. COMMENTS: ??No apparent complications Repeat up to 3 times in a 12 month period. Follow-up with primary care physician. I was the attending physician supervising the resident in the above care and I was present with the resident for the entire procedure. Melchor Hartman DO, MPH [facility] certification in Pain Medicine Attending Physician-Pain Management Thank you for the referral! CC: Mary Alice Domingo APRN [address] [place] [address] MARY ALICE DOMINGO APRN [address] [place] [address] Melchor Hartman V, NEUROLOGY ORDERABLES documented in this encounter Visit Diagnoses Diagnosis Spinal stenosis, lumbar region, without neurogenic claudication documented in this encounter Administered Medications Inactive Administered Medications - up to 3 most recent administrations Medication Order MAR Action Action Date Dose Rate Site dexamethasone(PF) (DECADRON) 10 mg/mL injection 15 mg 15 mg, Epidural, ONCE, 1 dose, On Sat03/27/16 at 1730, Routine Given 03/27/2016 5:30 PM EDT 15 mg iohexol (OMNIPAQUE) 240 mg/mL solution 1 mL 1 mL, Other, ONCE, 1 dose, On Sat03/27/16 at 1730, 49 ml wasted, Routine Given 03/27/2016 5:30 PM EDT 1 mL documented in this encounter Care Teams Youth Manager Relationship Specialty Start Date End Date Mary Alice Domingo APRN PCP - General 10/12/11 11/12/18 documented as of this encounter
--- OUTSIDE RECORDS SUMMARY | 2024-03-17 18:31 | XMS_ITS | Encounter Summary ---
[place] [address] Care Team Providers Care Condemnation Engineer Name Role Phone MillardMary Alice davis MANUELA Primary Care Provider [phone] Encounter Details Date Type Department Care Team (Late st Contact Info) Description 04/23/2016 Orders Only Sleep Center at [facility] [address] [place] [address] Shobha Duke APRN [facility] [place] [address] Social History Tobacco Use Types Packs/Day Years [...] as of this encounter Progress Notes * Shobha Duke APRN - 04/23/2016 9:50 AM EDT Polysomnogram Order Form Room # Technologist Assignment: To be read by on PSG Patient Information: Date of Study: Name: Poppy Mclaughlin (55 y.o. female) : 1960 Ht Readings from Last 1 Encounters: 03/27/16 152.4 cm (5') Wt Readings from Last 1 Encounters: 03/27/16 88.9 kg (196 lb) Normal Sleep Hours:10:30p-2a To 5a or later Arrival Time: Physical/Mobility Limitations: No Cognitive Limitations: No Requires Male Tech: No Requires Female Tech: No Requires 1:1 Care: No Requires Parent/Caregiver: No Home Oxygen Useage: YES, on 2lpm nocturnal oxygen At Home, Sleeps in a: Bed. Mrs. Mclaughlin sleeps with a pillow under her arm and another pillow perpendicular to her between her middle and low back. PSG Indications: Snoring, EDS, PAH, xerostomia, unrefreshed sleep, inadequate sleep, dream enactment, bruxism, RLS Other Medical Conditions: PAH, HTN, moderate COPD, history of syncope, dyspnea (granulatomas), urinary retention, edema, depression, anxiety, GERD, chronic diarrhea, chronic low back pain. Currently cigarette smoker. PSG Orders Type of Study: Diagnostic split for AHI > 30 and CMS > 10 Additional Data Required: TCO2; good EMG leads to chin/legs for movement Special Instructions: Oxygen orders below: o Start OFF oxygen. If SpO2 <= 88% for 10 consecutive minutes, add oxygen at 1 L/min and titrateto keep SpO2 > 90%. o If split, start OFF oxygen and titrate PAP to control obstruction. Then use same criteria to add and titrate O2. o If immediate and severe desats (ie: sustained in 70's), okay to add oxygen sooner. documented in this encounter Plan of Treatment Not on file documented as of this encounter Visit Diagnoses Not on filedocumented in this encounter Care Teams Condemnation Engineer Relationship Specialty Start Date End Date Mary Alice Cage APRN PCP - General 10/12/11 11/12/18 documented as of this encounter
--- OUTSIDE RECORDS SUMMARY | 2024-03-17 18:31 | XMS_ITS | Encounter Summary ---
Author Organization [facility] [place] [address] Care Team Providers Care Plush Brusher Name Role Phone RandallMary Alice davis MANUELA Primary Care Provider [phone] Encounter Details Date Type Department Care Team (Late st Contact Info) Description 03/27/2016 Telephone [place] [address] Myrna Contreras MD [facility] [place] [address] Social History Tobacco Use Types Packs/Day Years [...] encounter Miscellaneous Notes * Telephone Encounter - Myrna Contreras - 03/27/2016 9:01 PM EDT The patient called complaining of profuse sweating s/p caudal epidural this afternoon that is not subsiding. This is accompanied by being pale and clammy, temp of 99.4, and blood sugars in the 220s (she states normal for her is 140s, diet controlled). Advised her to present to the nearest emergencydepartment for evaluation (she states the closest to her mother's house where she is staying the night is [place]). Discussed with Dr. Montesinos who is in agreement with the plan. documented in this encounter Plan of Treatment Not on file documented as of this encounter Visit Diagnoses Not on filedocumented in this encounter Care Teams Plush Brusher Relationship Specialty Start Date End Date Mary Alice Cage APRN PCP - General 10/12/11 11/12/18 documented as of this encounter
--- OUTSIDE RECORDS SUMMARY | 2024-03-17 18:31 | XMS_ITS | Encounter Summary ---
[place] [address] Care Team Providers Care Invoice Machine Operator Name Role Phone CurryMary Alice davis Rajendra ROY Primary Care Provider [phone] Reason for Visit * Reason Onset Date Comments Medication Reaction 11/07/2015 Encounter Details Date Type Department Care Team (Late st Contact Info) Description 11/07/2015 [place] [id number] Ej Gilbert, paper stripper Reaction Social History Tobacco Use Types Packs/Day Years [...] Telephone Encounter - Ej Gilbert RN - 11/07/2015 10:37 AM EDT Received an alert from patient's pharmacy, [facility], that there is potential interaction between herDiltiazem and her Simvastatin. 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 T.i.d., the simvastatin is 20 mg daily pr escribed by a Dr. Florence. Diltiazem can increase simvastatin levels, potentiating the risk of myopathy and rhabdomyolysis. Per Dr. Starkey this is all theoretical. Calcium channel blockers have been used for years (and years) with cholesterol medications Asked to call patient's PCP to discuss. Spoke to KAMLA Desir at Dr. Florence's office. Per Karlee patient was told to stop taking cardizem by their office on 10/18/15 following hypotension and complaints of dizziness. She was not prescribed an alternative and our office was not informed. Per Dr. Starkey Her HREM (read last night) shows spasticity. I asked that a copy be sent to her. Her rojas is pending. I'll send a copy too. Let's have her use warm peppermint tea three times daily forthe esophageal spasm for now. Do this for the next 3 weeks and call back. Attempted to call patient. Only phone number listed in chart [phone] disconnected. Patient sent [employer] message. documented in this encounter Plan of Treatment Not on file documented as of this encounter Visit Diagnoses Not on filedocumented in this encounter Care Teams Invoice Machine Operator Relationship Specialty Start Date End Date Mary Alice Cage APRN PCP - General 10/12/11 11/12/18 documented as of this encounter
--- OUTSIDE RECORDS SUMMARY | 2024-03-17 18:31 | XMS_ITS | Encounter Summary ---
[place] [address] Care Team Providers Care Senior It Auditor Name Role Phone LetcherMary Alice davis Rajendra ROY Primary Care Provider [phone] Encounter Details Date Type Department Care Team (Latest Contact Info) Description 11/25/2015 12:30 PM EDT - 11/25/2015 11:59 PM EDT Hospital Encounter Non-Invasive [place] [address] Syncope, unspecified syncope type Discharge Disposition: Home [...] Spcr 2 puffs [place] [facility]; Combo Route) route daily. promethazine [...] Procedure Name Priority Date/Time Associated Diagnosis Comments LAURA Routine 11/25/2015 12:33 PM EDT Syncope, unspecified syncope type documented in this encounter Results * Laura (11/25/2015 12:33 PM EDT) Anatomical Region Laterality Modality Other Narrative 12/15/2015 12:55 PM EDT ZIOPATCH MONITOR Hookup Date: 11/22/2015 Monitor duration: 16 days, one hour (15 days, 18 hours after artifact removed) Predominant rhythm: Sinus Average heart rate: 77-87 beats per minute Minimum sinus rate: 56 bpm at 8:16 AM Maximum sinus rate: 124 bpm at 8:31 PM Atrial ectopy: Rare (less than 1%) Rare single APCs, rare APC couplets, rare APC triplets 7 run(s) of SVT: The fastest and longest consisting of 21 beats and an average rate of 164 bpm Ventricular ectopy: Rare (less than 1%) Rare single VPCs, 0 VPC couplets, 1 VPC triplets No run(s) of ventricular tachycardia: Bradycardia: There were no significant pauses. Symptoms: There were 40 triggered events and no diary entries during sinus rhythm at a variety of heart rates. Osmany Overton MD CARD[facility] DERAB[facility] documented in this encounter Visit Diagnoses Diagnosis Syncope, unspecified syncope type documented in this encounter Care Teams Senior It Auditor Relationship Specialty Start Date End Date Mary Alice Cage APRN PCP - General 10/12/11 11/12/18 documented as of this encounter
--- OUTSIDE RECORDS SUMMARY | 2024-03-17 18:31 | XMS_ITS | Encounter Summary ---
[facility] [place] [address] Care Team Providers Care Timekeeper Supervisor Name Role Phone WashingtonMary Alice dvais Rajendra ROY Primary Care Provider [phone] Reason for Visit * Auth/Cert Specialty Diagnoses / Procedures Referred By Chava alejo Referred To Contact Diagnoses Gerd monomity off meds 2 weeks Procedures PRO UPPER GI ENDOSCOPY, DIAGNOSTIC EGD, UPPER GI ENDOSCOPY Referral ID Status Reason Start Date Expiration Date Visits Re quested Visits Authorized [id number] 1 1 Encounter Details Date Type Department Care Team (Late st Contact Info) Description 10/26/2015 1:00 PM EDT - 10/26/2015 1:30 PM EDT Surgery [place] [address] Apolinar Sepulveda MD [facility] [place] [address] EGD, UPPER GI ENDOSCOPY (WRVU 2.09) Social [...] Sign Reading Time Taken Comments Blood Pressure 108/70 10/26/2015 1:59 PM EDT Pulse 61 10/26/2015 1:59 PM EDT Temperature - - Respiratory Rate 16 10/26/2015 1:59 PM EDT Oxygen Saturation 93% 10/26/2015 1:59 PM EDT Inhaled Oxygen Concentration - - Weight 91.2 kg (201 lb) 10/26/2015 11:56 AM EDT Height - - Body Mass Index 37.73 08/29/2015 12:34 PM EST documented in this encounter Discharge Instructions * Discharge Instructions* Jodee Ang, RN - 10/26/2015 1:39 PM EDT UPPER GI ENDOSCOPY with Palmer PH Capsule WHAT TO EXPECT AFTER THE PROCEDEURE After the test you may feel a little more gassy or bloated than usual. This is normal. ACTIVITY Because of the sedation that you recieved Your judgement and reaction time are affected ?? Go home and rest quietly for the remainder of the day. You may resume your normal activities tomorrow. ?? Change from one position to the next slowly. You may loose your balance unexpectedly. ?? Be careful on stairs, as you may be unsteady on your feet. FOR THE NEXT 24 HRS ?? DO NOT DRIVE OR OPERATE ANY MACHINERY ?? DO NOT DRINK ALCOHOLIC BEVERAGES ?? DO NOT SIGN LEGAL DOCUMENTS or make important decisions ?? If you are a smoker: DO NOT SMOKE WHILE YOU ARE ALONE Diet ?? Start by eating small portions of foods that ordinarily won't upset your stomach. Be gentle withwhat you choose to start with. ?? Drink plenty of fluids ( unless otherwise told not to) Medications ?? You may have a mild sore throat. Ice chips, popsicles, over- the-counter throat lozenges or spaymay help numb your throat. This procedure should not cause a fever. ?? You may experience some chest discomfort that may or may not get worse with swallowing. If this happens try drinking a warm liquid which will help relax the esophagus. Or use pain medicine that you normally would use ( Tylenol, advil ...). Peppermint tea may also be useful. This discomfort usually passes after 24-48 hrs. Other Instructions Be sure to carry your manufacturing business analyst within 3 feet at all times . Follow the instructions that were givento you along with your diary. IV SITE may get red or tender. This is normal. You may use warm compresses 20 minutes at a time on and off for the next day or so. If the tenderness +/or redness increases or foul drainage and a red streak occurs, please contact your PCP WHEN SHOULD YOU CALL FOR HELP? Call 911 anytime you think that you need emergency care. For example, call if: You passed out (lost consciousness). You cough up blood. You vomit blood or what looks like coffee grounds. You pass maroon or very bloody stools. Call your doctor now or seek immediate medical attention if: Severe chest pain that gets worse with swallowing You have trouble swallowing. You have belly [...] better as expected. Saturday-Saturday Same Day Endo [phone] 7a-8p Otherwise contact [phone] and ask to speak to the choker hooker section chief Ade Paul RN [phone] if any problems with manufacturing business analyst Follow-up care is a liriano part of your treatment and safety. Be sure to make and go to all appointments, and call your doctor if you are having problems. Instructions have been reviewed and patient expresses understanding documented in this encounter Medications at Time of Discharge Medication Sig Dispensed Refills Start Date End Date OXYGEN-AIR DELIVERY SYSTEMS ( CLASSIC OXYGEN CONCENTRATOR MISC) 3 L by [facility].(Non-Drug; Combo Route) route nightly. diphenoxylate-atropine (LOMOTIL) 2.5-0.025 [...] lung Take 10 mg by mouth daily. Miscellaneous Medical Supply MiscIndications:PAH (pulmonary artery hypertension) [...] mouth daily. 5 tablet 3 02/21/2015 12/20/2016 gabapentin (NEURONTIN) 300 mg Capsule Take 3 capsules by mouth 3 times daily. 270 capsule 11 11/18/2014 11/18/2015 dexlansoprazole (DEXILANT) 60 mg Cap, Delayed Rel., [...] as of this encounter H&P Notes * Apolinar Sepulveda MD - 10/26/2015 1:05 PM EDT PROBLEM LIST Patient Active Problem List Diagnosis Code ??? [...] Chronic diarrhea K52.9 ??? 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 Hypertension I10 ??? Radiculopathy of lumbar region M54.16 ??? Trochanteric bursitis M70.60 ??? Edema R60.9 ??? COPD, moderate J44.9 ??? Thrush B37.0 ??? Syncope R55 ??? PAH (pulmonary artery hypertension) I27.2 HISTORY OF PRESENT ILLNESS Poppy Mclaughlin is a 55 y.o. y/o who presents for PALMER and EGD for refractory GERD. MEDICATIONS No current facility-administered medications on file prior to encounter. Current Outpatient Prescriptions on File Prior to Encounter Medication Sig Dispense Refill ??? Miscellaneous Medical Supply [facility] Face mask for nocturnal O2 1 each PRN ??? HYDROcodone-acetaminophen (VICODIN) 5-300 mg Tablet Take 1 tablet by mouth every 4 hours. 10 mg ??? simvastatin (ZOCOR) 20 mg Tablet Take 20 mg by mouth nightly. ??? OXYGEN-AIR DELIVERY SYSTEMS ( CLASSIC OXYGEN CONCENTRATOR [facility] [place]) by [facility].(Non-Drug; Combo Route) route nightly. ??? chlorpheniramine (CHLOR-TRIMETON) 4 mg Tablet Take 4 mg by mouth every 6 hours as needed for Allergies. ??? atenolol (TENORMIN) 25 mg Tablet Take 25 mg by mouth daily. ??? fluconazole (DIFLUCAN) 100 mg Tablet Take 1 tablet by mouth daily. 5 tablet 3 ??? gabapentin (NEURONTIN) 300 mg Capsule Take 3 capsules by mouth 3 times daily. 270 capsule 11 ??? dexlansoprazole (DEXILANT) 60 mg Cap, Delayed Rel., Multiphasic Take 1 capsule by mouth daily. 30 capsule 11 ??? spironolactone (ALDACTONE) 25 mg Tablet Take 25 mg by mouth daily. ??? BUDESONIDE/FORMOTEROL FUMARATE (SYMBICORT INHL) Inhale 2 [...] mg by mouth 2 times daily. ??? cholecalciferol, Vitamin D3, 400 unit tablet [...] by mouth daily. 90 tablet 3 ??? dicyclomine (BENTYL) 10 mg Capsule Take 1 capsule by mouth 4 times daily. 120 capsule 11 ??? lisinopril (PRINIVIL;ZESTRIL) 10 mg Tablet Take 1 tablet by mouth daily. 30 tablet 12 ??? ibuprofen (ADVIL;MOTRIN) 800 mg Tablet Take 800 mg by mouth 3 times daily. ??? promethazine (PHENERGAN) 25 mg tablet Take 25 mg by mouth every 6 hours as needed. PHYSICAL EXAM: Blood pressure 129/78, pulse 76, resp. rate 22, weight 91.173 kg (201 lb), last menstrual period 08/16/2014, SpO2 98 %. GEN: Alert, cooperative. Pleasant. In NAD HEENT: No oropharyngeal lesions. Neck supple. No masses. Thyroid symmetric LUNGS: CTAB CARD: RRR without m/g/r ABD: Non-distended. Active BS. Soft. Benign. No masses. No HSM. No succussion splash. No bruits RECTAL: Deferred EXT: No C/C/E NEURO: No focal RECENT LABS No results found for this or any previous visit (from the past 24 hour(s)). ASSESSMENT AND PLAN Poppy M Arnoldo is a 55 y.o. y/o who presents for endoscopy. Risks extensively discussed including bleeding, infection, reaction to anesthesia, perforation, and/or other unforseen complication. Consent signed and patient will informed of the risks of the procedure. documented in this encounter Plan of Treatment Not on file documented as of this encounter Procedures Procedure Name Priority Date/Time Associated Diagnosis Comments SPECIMEN TO PATHOLOGY Routine 10/26/2015 1:51 PM EDT SPECIMEN TO PATHOLOGY Routine 10/26/2015 1:49 PM EDT SPECIMEN TO PATHOLOGY Routine 10/26/2015 1:48 PM EDT SURGICAL PATHOLOGY REPORT Routine 10/26/2015 1:32 PM EDT SPECIMEN TO PATHOLOGY Routine 10/26/2015 1:32 PM EDT SPECIMEN TO PATHOLOGY Routine 10/26/2015 1:32 PM EDT UPPER GASTROINTESTINAL ENDOSCOPY,WITH BIOPSY SINGLE OR MULTIPLE (WRVU 2.39) 10/26/2015 1:03 PM EDT Gerd BEL bmp manomety off meds 2 weeks Palmer EGD, UPPER GI ENDOSCOPY (WRVU 2.09) 10/26/2015 1:03 PM EDT Gerd BEL bmp manomety off meds 2 weeks Palmer documented in this encounter Results * Specimen to Pathology (surgical or derm) (10/26/2015 1:51 PM EDT) AP Specimen 10/26/2015 1:51 PM EDT 10/26/2015 1:51 PM EDT Narrative [facility] - 10/26/2015 1:51 PM EDT Specimen requisition ordered. ??Separate Pathology report to follow Apolinar Sepulveda MD PATHOLOGY/CYTOLOGY ORDERABLES [facility] [place] [address] * Specimen to Pathology (surgical or derm) (10/26/2015 1:49 PM EDT) AP Specimen 10/26/2015 1:49 PM EDT 10/26/2015 1:49 PM EDT Narrative [facility] - 10/26/2015 1:49 PM EDT Specimen requisition ordered. ??Separate Pathology report to follow Apolinar Sepulveda MD PATHOLOGY/CYTOLOGY ORDERABLES Performing Organization Address [facility] [place] [address] * Specimen to Pathology (surgical or derm) (10/26/2015 1:48 PM EDT) AP Specimen 10/26/2015 1:48 PM EDT 10/26/2015 1:48 PM EDT Narrative [facility] - 10/26/2015 1:48 PM EDT Specimen requisition ordered. ??Separate Pathology report to follow Apolinar Sepulveda MD PATHOLOGY/CYTOLOGY ORDERABLES Performing Organization Address [facility] de Phone Number [facility] [place] [address] * Surgical Pathology Report (10/26/2015 1:32 PM EDT) Pathologist [facility] Final Diagnosis [id number] ? Location: The signing pathologist has (i) examined the relevant preparation(s) for the specimen(s) and (ii) rendered or confirmed the diagnosis(es). . ?Surgical Pathology DIAGNOSIS A - Duodenum, biopsy: - Duodenal mucosa, negative for diagnostic abnormality. B - Antrum, biopsy: - Gastric antrum-type and body/fundic-typ e mucosa, negative for diagnostic abnormality. 10/26/15 AAY 10/28/15 Verified by: ? Nadir Guy MD ?Pathologist ?(Electronic Signature) The attending pathologist whose signature appears on this report has reviewed all diagnostic slides and has edited the gross and/or microscopic portion of the report in rendering the final pathologic diagnosis. CLINICAL INFORMATION Specimen Submitted: A - Random Duodenum B - Random antrum Clinical History: Dyspepsia Clinical Diagnosis: Same SPECIMEN PROCESSING A - Labeled/Fixativ e: Duodenum, formalin. Quantity/Size: Four, averaging 0.3 cm. Tissue Description: Soft, zuniga-pink tissue. Sections/Proces sing: (T1) B - Labeled/Fixativ e: Random antrum, formalin. Quantity/Size: Two, averaging 0.3 cm. Tissue Description: Soft, zuniga-pink tissue. Sections/Proces sing: (T1) ??ejr 10/28/2015 12:00 PM EDT [facility] GI Biopsy 10/26/2015 1:32 PM EDT 10/26/2015 1:32 PM EDT GI Biopsy 10/26/2015 1:32 PM EDT 10/26/2015 1:32 PM EDT Apolinar Sepulveda MD PATHOLOGY/CYTOLOGY ORDERABLES Performing Organization Address [facility] Co de Phone Number [facility] [place] [address] * Specimen to Pathology (surgical or derm) (10/26/2015 1:32 PM EDT) AP Specimen 10/26/2015 1:32 PM EDT 10/26/2015 1:32 PM EDT Narrative [facility] - 10/26/2015 1:32 PM EDT Specimen requisition ordered. ??Separate Pathology report to follow Apolinar Sepulveda MD PATHOLOGY/CYTOLOGY ORDERABLES Performing Organization Address [facility] [place] [address] * Specimen to Pathology (surgical or derm) (10/26/2015 1:32 PM EDT) AP Specimen 10/26/2015 1:32 PM EDT 10/26/2015 1:32 PM EDT Narrative [facility] - 10/26/2015 1:32 PM EDT Specimen requisition ordered. ??Separate Pathology report to follow Apolinar Sepulveda MD PATHOLOGY/CYTOLOGY ORDERABLES [facility] [place] [address] documented in this encounter Visit Diagnoses Not on filedocumented in this encounter Administered Medications Inactive Administered Medications - up to 3 most recent administrations Medication Order MAR Action Action Date Dose Rate Site fentaNYL 50 mcg/mL multi-dose injection ONCE PRN, Starting on Sat10/26/15 at 1305, Until Sat10/26/15 at 1649, Intra-Operative (Intra-Procedure), Routine Given 10/26/2015 1:14 PM EDT 50 mcg Right Arm Given 10/26/2015 1:11 PM EDT 50 mcg Ri ght Arm Given 10/26/2015 1:08 PM EDT 50 mcg Ri ght Arm midazolam (PF) (VERSED) 1 mg/mL multi-dose injection ONCE PRN, Starting on Sat10/26/15 at 1305, Until Sat10/26/15 at 1649, Intra-Operative (Intra-Procedure), Routine Given 10/26/2015 1:14 PM EDT 1 mg Left Arm Given 10/26/2015 1:11 PM EDT 1 mg Le ft Arm Given 10/26/2015 1:08 PM EDT 1 mg Le ft Arm documented in this encounter Active and Recently Administered Medications Times are shown in EDT. PRN Medication Order 10/24/2015 10/25/2015 10/26/2015 fentaNYL 50 mcg/mL multi-dose injection (CANCELED) ONCE PRN, Starting on Sat10/26/15 at 1305, Until Sat10/26/15 at 1649, Intra-Operative (Intra-Procedure), Routine 1305 (Given - Provid er: Apolinar Sepulveda MD - Comment: start moderate sedation)1308 (Given - Provider: Apolinar Sepulveda MD - Comment: sleepy but awake)1311 (Given - Provider: Apolinar Sepulveda MD - Comment: easily aroused with passage of scope)1314 (Given - Provider: Apolinar Sepulveda MD - Comment: grimmacing and moving hands) midazolam (PF) (VERSED) 1 mg/mL multi-dose injection (CANCELED) ONCE PRN, Starting on Sat10/26/15 at 1305, Until Sat10/26/15 at 1649, Intra-Operative (Intra-Procedure), Routine 1305 (Given - Provid er: Apolinar Sepulveda MD - Comment: see fentanyl same time)1308 (Given - Provider: Apolinar Sepulveda MD - Comment: see fentanyl same time)1311 (Given - Provider: Apolinar Sepulveda MD - Comment: see fentanyl same time)1314 (Given - Provider: Apolinar Sepulveda MD - Comment: see fentanyl same time) documented in this encounter Care Teams Timekeeper Supervisor Relationship Specialty Start Date End Date Mary Alice Cage APRN PCP - General 10/12/11 11/12/18 documented as of this encounter
--- OUTSIDE RECORDS SUMMARY | 2024-03-17 18:31 | XMS_ITS | Encounter Summary ---
[facility] [place] [address] Care Team Providers Care Autocad Detailer Name Role Phone BaileyMary Alice davis Rajendra ROY Primary Care Provider [phone] Encounter Details Date Type Department Care Team (Latest Contact Info) Description 03/19/2016 9:15 AM EDT - 03/19/2016 11:59 PM EDT Hospital En[place] [id number] COPD, moderate Discharge Disposition: Home Social History [...] Inhalational Spacing Device Spcr 2 puffs by [facility].(Non-Drug; Combo Route) route daily. promethazine (PHENERGAN) 25 mg tablet Take 25 mg by mouth every 6 hours as needed. MULTIVITAMIN ORAL Take 2 tablets by mouth daily. ASCORBATE CALCIUM (VITAMIN C ORAL) Take 1 tablet by mouth daily. albuterol (PROVENTIL) 2.5 mg /3 mL (0.083 [...] daily. gabapentin (NEURONTIN) 300 mg Capsule Take 300 mg by mouth 3 times daily. 03/16/2016 11/14/2018 oxyCODONE (ROXICODONE) 10 mg Tablet Take 20 mg by mouth 2 times daily. 02/29/2016 11/25/2018 eluxadoline 100 mg Tablet Take 100 mg by mouth 2 times daily. 60 tablet 5 01/24/2016 01/23/2017 rOPINIRole (REQUIP) 0.5 mg Tablet Take 0.5 mg by mouth nightly. 11/15/2015 05/16/2016 sulfamethoxazole-trim ethoprim (BACTRIM DS) 800-160 mg TabletIndications:SOCIAL WORK SPECIALIST D, moderate Take 1 tablet by mouth 2 times daily for 10 days. 20 tablet 1 12/09/2015 07/07/2016 DEXILANT 60 mg Cap, Delayed Rel., MultiphasicIndication s:Gastroesophageal reflux disease, esophagitis presence not specified TAKE ONE CAPSULE BY MOUTH ONCE DAILY 30 capsule 5 11/28/2015 09/13/2016 Miscellaneous Medical Supply MiscIndications:PAH (pulmonary artery hypertension) Face mask for nocturnal O2 1 each PRN 08/29/2015 10/24/2016 HYDROcodone-acetamino phen (VICODIN) 5-300 mg Tablet Take 1 tablet by mouth every 4 hours. 10 mg 07/09/2016 simvastatin (ZOCOR) 20 mg Tablet Take 20 mg by mouth nightly. 11/14/2018 dicyclomine (BENTYL) 10 mg CapsuleIndications:Ch ronic abdominal [...] mouth daily. 07/09/2016 lisinopril (PRINIVIL;ZESTRIL) 10 mg TabletIndications:Rasta ma,Hypertension Take 1 tablet by mouth daily. 30 [...] as of this encounter Procedure Notes * Osmany Holloway MD - 03/19/2016 10:34 PM EDTAssociated Order(s): PULMONARY FUNCTION TEST No significant desaturation with exertion. documented in this encounter Plan of Treatment Not on file documented as of this encounter Procedures Procedure Name Priority Date/Time Associated Diagnosis Comments COMMON PULMONARY FUNCTION TEST Routine 03/19/2016 10:35 PM EDT COPD, moderate documented in this [...] classified documented in this encounter Care Teams Autocad Detailer Relationship Specialty Start Date End Date Mary Alice Cage APRN PCP - General 10/12/11 11/12/18 documented as of this encounter
--- OUTSIDE RECORDS SUMMARY | 2024-03-17 18:31 | XMS_ITS | Encounter Summary ---
[place] [address] Care Team Providers Care Sales Agent Fire Insurance Name Role Phone Mary Alice Cage MANUELA Primary Care Provider [phone] Reason for Visit * Reason Onset Date Comments Results 11/14/2015 Encounter Details Date Type Department Care Team (Late st Contact Info) Description 11/14/2015 Telephone [place] [phone] Edgardo Paul, RN Results Social History Tobacco Use Types [...] encounter Miscellaneous Notes * Telephone Encounter - Edgardo Paul, RN - 11/14/2015 3:28 PM EDT Spoke with patient. Discussed EGD findings (reviewed Dr. Geiger's 11/02/15 letter to patient). No record of PALMER study results in chart at this time, though patient recollects seeing a letter documenting these results. Patient is drinking peppermint tea, reports that is causes a heartburny sensation but she is continuing to follow this instruction. Awaits further advice from Dr. Starkey, based on study results. * Telephone Encounter - Edgardo Paul RN - 11/14/2015 10:00 AM EDT Patient LM requesting her test results. Returned patient's call at number patent provided in her VM from 11/11/15 ([phone]), no answer. LM that (per 11/02/[address] Sepulveda), EGD results/biopsy results normal, unremarkable, and PALMER capsule study results still pending. Also asked her to return call to [facility] to go over Dr. Starkey's advice regarding use of peppermint tea for esophageal spasms (see 11/07/15 chart note). documented in this encounter Plan of Treatment Not on file documented as of this encounter Visit Diagnoses Not on filedocumented in this encounter Care Teams Sales Agent Fire Insurance Relationship Specialty Start Date End Date Mary Alice Cage APRN PCP - General 10/12/11 11/12/18 documented as of this encounter
--- OUTSIDE RECORDS SUMMARY | 2024-03-17 18:31 | XMS_ITS | Encounter Summary ---
Author Organization [facility] [place] [address] Care Team Providers Care Layout Technician Name Role Phone CarltonMary Alice davis Rajendra ROY Primary Care Provider [phone] Reason for Visit * Auth/Cert Specialty Diagnoses / Procedures Referred By Chava alejo Referred To Contact Diagnoses Gerd monomity off meds 2 weeks Procedures PRO UPPER GI ENDOSCOPY, DIAGNOSTIC EGD, UPPER GI ENDOSCOPY Referral ID Status Reason Start Date Expiration Date Visits Re quested Visits Authorized [id number] 1 1 Encounter Details Date Type Department Care Team (Latest Contact Info) Description 10/26/2015 5:00 PM EDT Tech [place] [address] Justin Starkey MD [facility] [address] [place] [address] Gastroesophageal reflux disease, esophagitis presence not specified [...] as of this encounter Progress Notes * Justin Starkey MD - 11/06/2015 7:09 PM EDT HIGH-RESOLUTION ESOPHAGEAL MANOMETRY Poppy Mclaughlin [address] [place] [id number] : 1960 STUDY DATE: 10-26-2015 PROVIDER: [place] ([id number]) INDICATION GERD; history of esophageal spasms METHODS Stationary esophageal manometry was performed with the ManoScan ESO version 3.0 in a supervised setting after verbal consent and after topical anesthesia to the nares. This system uses 36 individual circumferential solid state sensors spaced 1 cm apart. The outer diameter of the probe is 4.2 mm. Length, resting pressure, pressure inversion point (PIP), and relaxation of the lower esophageal sphincter (LES) was measured. The high pressure zone of the upper esophageal sphincter (UES) was measured. Water swallows were provided after a 2-yu-5-minute accommodation period to assess LES function andfunction of the esophageal body. FINDINGS LES (lower esophageal sphincter) Distal border of LES identified at 47.3 cm. Proximal border of LES identified at 44.3 cm. Hiatal hernia present? No Basal pressure respiratory mean pressure 46 mmHg (normal = 15-34 mmHg). Residual mean pressure (integrated relaxation pressure - IRP) 32 mmHg (normal = <15 mmHg). BODY OF ESOPHAGUS Water Swallows: 10. Failed: 0%. Transmitted (peristaltic): 100%. Panesophageal pressurization: 0% Premature: 0% Rapid: 0% With large breaks: 0%. With small breaks: 0%. DCI (distal contractile integral): 5404 mmHg-cm-s (normal is 450 to 5000 mmHg-cm-s). Contractile front velocity: 4.2 cm/s (normal is <9.0 cm/s). Intrabolus pressure (average maximum): 17 mmHg (normal is <17.0 mmHg). Distal latency: 6.3 UES (upper esophageal sphincter) Distal border of UES identified at 19.8 cm and extended to 18.6 cm. UES basal pressure 62 mmHg (normal = 34-104 mmHg). Residual pressure 9.3 mmHg (normal = <12 mmHg). IMPRESSION 1. LES resting pressure just above normal limits consistent with mild EGJ outflow obstruction. Thiscan be associated with a hypercontractile state such as nutcracker esophagus. 2. LES relaxation is incomplete due to hypercontractile state in distal esophagus. This is not consistent with achalasia as all swallow were peristaltic. 3. Normal UES resting pressure. 4. Normal UES relaxation. 5. 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 6. No evidence of a hiatal hernia on this study. Justin Starkey, PhD, MD motor and generator assembler, [facility] [employer] Chief, Section of Gastroenterology and Hepatology [facility] [place] [address] V: [phone] F: [phone] CC/EC: PCP Patient documented in this encounter Plan of Treatment Not on file documented as of this encounter Visit Diagnoses Diagnosis Gastroesophageal reflux disease, esophagitis presence not specified documented in this encounter Care Teams Layout Technician Relationship Specialty Start Date End Date Mary Alice Cage APRN PCP - General 10/12/11 11/12/18 documented as of this encounter
--- OUTSIDE RECORDS SUMMARY | 2024-03-17 18:31 | XMS_ITS | Encounter Summary ---
[place] [address] Care Team Providers Care Newborn Hearing Screener Name Role Phone ChesterMary Alice davis Rajendra ROY Primary Care Provider [phone] Reason for Visit * Auth/Cert Specialty Diagnoses / Procedures Referred By Chava alejo Referred To Contact Diagnoses Gerd monomity off meds 2 weeks Procedures PRO UPPER GI ENDOSCOPY, DIAGNOSTIC EGD, UPPER GI ENDOSCOPY Referral ID Status Reason Start Date Expiration Date Visits Re quested Visits Authorized [id number] 1 1 Encounter Details Date Type Department Care Team (Latest Contact Info) Description 10/26/2015 11:38 AM EDT - 10/26/2015 2:40 PM EDT Hospital Encounter [place] [address] [facility] [place] [address] Discharge Disposition: Home Social History Tobacco Use [...] Other Instructions Be sure to carry your medical appointment clerk within 3 feet at all times . [...] better as expected. Saturday-Saturday Same Day Endo [phone]-[phone] Otherwise contact [phone] and ask to speak to the parts processor steam conditioner operator Ade Paul RN [phone] if any problems with medical appointment clerk Follow-up care is a liriano part of [...] CLASSIC OXYGEN CONCENTRATOR MISC) 3 L by [facility].(Non-Drug; Combo Route) route nightly. diphenoxylate-atropine (LOMOTIL) 2.5-0.025 mg Tablet Take 1 tablet by mouth 4 times daily. DO NOT restarted this unless you are having diarrhea. 120 tablet 7 06/11/2014 albuterol (PROVENTIL HFA;VENTOLIN HFA) 90 mcg/actuation HFA Aerosol Inhaler Inhale 2 puffs into the lungs every 4 hours as needed. Use with spacer Inhalational Spacing Device Spcr 2 puffs by [facility].(Non-Drug; Combo Route) route daily. promethazine (PHENERGAN) 25 [...] Sig Dispense Refill ??? Miscellaneous Medical Supply [facility] Face mask for nocturnal O2 1 each PRN ??? HYDROcodone-acetaminophen (VICODIN) 5-300 mg Tablet Take 1 tablet by mouth every 4 hours. 10 mg ??? simvastatin (ZOCOR) 20 mg Tablet Take 20 mg by mouth nightly. ??? OXYGEN-AIR DELIVERY SYSTEMS ( CLASSIC OXYGEN CONCENTRATOR [facility]) by [facility].(Non-Drug; Combo Route) route nightly. ??? chlorpheniramine (CHLOR-TRIMETON) [...] Inhalational Spacing Device Spcr 2 puffs by [facility].(Non-Drug; Combo Route) route daily. ??? fluticasone (FLONASE) [...] past 24 hour(s)). ASSESSMENT AND PLAN Poppy Mclaughlin is a 55 y.o. y/o [...] PM EDT 10/26/2015 1:51 PM EDT Narrative [facility] - 10/26/2015 1:51 PM EDT Specimen requisition ordered. ??Separate Pathology report to follow Apolinar Sepulveda MD PATHOLOGY/CYTOLOGY ORDERABLES [facility] [place] [address] * Specimen to Pathology (surgical or derm) (10/26/2015 1:49 PM EDT) AP Specimen 10/26/2015 1:49 PM EDT 10/26/2015 1:49 PM EDT Narrative [facility] - 10/26/2015 1:49 PM EDT Specimen requisition ordered. ??Separate Pathology report to follow Apolinar Sepulveda MD PATHOLOGY/CYTOLOGY ORDERABLES Performing Organization Address [facility] [place] [address] * Specimen to Pathology (surgical or derm) (10/26/2015 1:48 PM EDT) AP Specimen 10/26/2015 1:48 PM EDT 10/26/2015 1:48 PM EDT Narrative [facility] - 10/26/2015 1:48 PM EDT Specimen requisition ordered. ??Separate Pathology report to follow Apolinar Sepulveda MD PATHOLOGY/CYTOLOGY ORDERABLES Performing Organization Address [facility] de Phone Number [facility] [place] [address] * Surgical Pathology Report (10/26/2015 1:32 PM EDT) Final Diagnosis [id number] ? Location: The signing pathologist has (i) [...] Two, averaging 0.3 cm. Tissue Description: Soft, zuinga-pink tissue. Sections/Proces sing: (T1) ??ejr 10/28/2015 12:00 PM EDT [facility] GI Biopsy 10/26/2015 1:32 PM EDT 10/26/2015 1:32 PM EDT GI Biopsy 10/26/2015 1:32 PM EDT 10/26/2015 1:32 PM EDT Apolinar Sepulveda MD PATHOLOGY/CYTOLOGY ORDERABLES Performing Organization Address [facility] Co de Phone Number [facility] [place] [address] * Specimen to Pathology (surgical or derm) (10/26/2015 1:32 PM EDT) AP Specimen 10/26/2015 1:32 PM EDT 10/26/2015 1:32 PM EDT Narrative [facility] - 10/26/2015 1:32 PM EDT Specimen requisition ordered. ??Separate Pathology report to follow Apolinar Sepulveda MD PATHOLOGY/CYTOLOGY ORDERABLES Performing Organization Address [facility]/ZIP Co de Phone Number [facility] [place] [address] * Specimen to Pathology (surgical or derm) (10/26/2015 1:32 PM EDT) AP Specimen 10/26/2015 1:32 PM EDT 10/26/2015 1:32 PM EDT Narrative [facility] - 10/26/2015 1:32 PM EDT Specimen requisition ordered. ??Separate Pathology report to follow Apolinar Sepulveda MD PATHOLOGY/CYTOLOGY ORDERABLES [facility] [place] [address] documented in this encounter Visit Diagnoses Not on filedocumented in this encounter Active and Recently Administered [...] time) documented in this encounter Care Teams Newborn Hearing Screener Relationship Specialty Start Date End Date Mary Alice Cage APRN PCP - General 10/12/11 11/12/18 documented as of this encounter
--- OUTSIDE RECORDS SUMMARY | 2024-03-17 18:31 | XMS_ITS | Encounter Summary ---
Author Organization [facility] [place] [address] Care Team Providers Care Bundle Shaker Name Role Phone Mary Alice Cage APRN Primary Care Provider [phone] Encounter Details Date Type Department Care Team (Latest Contact Info) Description 10/31/2015 11:00 PM EDT Tech [place] [address] Justin Starkey MD [facility] [place] [address] Gastroesophageal reflux disease, esophagitis presence not specified [...] Progress Notes * Justin Starkey MD - 11/08/2015 11:57 AM EDT [id number]-AOMHW-[id number] WIRELESS pH CAPSULE STUDY AFTER UPPER ENDOSCOPY Poppy Mclaughlin Female, 55 y.o., 1960 , SR None PCP: Mary Ailce Cage STONEWORKING SANDER: None STUDY DATES: 10/26/15 to 10/28/15 INTERPRETATION DATE: 11/06/15 PROVIDER: [place] ([id number]) INDICATION Reflux symptoms. Preoperative evaluation. NOTE: This study was performed off of medications used to treat acid reflux. METHODS After upper endoscopy where landmarks were visualized and measured, in a supervised setting, and after informed consent, a Donald pH telemetry capsule was deployed orally and attached to the esophageal wall at 5 cm above the upper border of the LES. No complications were noted during this procedure. FINDINGS Visual inspection of the study shows fluctuations in pH values throughout the study consistent witha technically adequate study. DAY ONE Upright: 19 hours, 46 minutes Supine: 4 hours, 14 minutes Total Number of Reflux Episodes: 16 Upright Position: 16 Supine Position: 0 Reflux Episodes Longer than Five Minutes: 5 Upright: 5 Supine: 0 Duration of Longest Episode: 25 minute(s), upright position Total Distal Esophageal Acid Exposure Time: 1 hour, 29 minute(s). Percent of Total Recording Time: 7.3% Percent of Upright Recording Time: 9% Percent of Supine Recording Time: 0% Calculated DeMeester Score (normal values are up to 14.72) Day One Calculated DeMeester Score: 19.2 DAY TWO Upright: 19 hours, 43 minutes Supine: 4 hours, 17 minutes Total Number of Reflux Episodes: 11 Upright Position: 11 Supine Position: 0 Reflux Episodes Longer than Five Minutes: 0 Upright: 0 Supine: 0 Duration of Longest Episode: 5 minute(s), upright position Total Distal Esophageal Acid Exposure Time: 17 minute(s). Percent of Total Recording Time: 1.5% Percent of Upright Recording Time: 1.9% Percent of Supine Recording Time: 0% Calculated DeMeester Score (normal values are up to 14.72) Day Two Calculated DeMeester Score: 3.9 Gedsk-Iuxrl-Jkeh DeMeester Score (Total): 13.0 Whdnd-Iapdr-Lxvm (Total) Fraction of Time with pH Less Than 4%: 4.5% Day One Symptoms Association Probability (SAP) for Heartburn: 0% Chest pain: 0% Regurgitation: 0% Day Two SAP for Heartburn: 0% Chest pain: 0% Regurgitation: 0% Zrqoo-Cwvai-Puay SAP for Heartburn: 0% Chest pain: 0% Regurgitation: 0% IMPRESSION During this recording period, while the patient was not on medications for acid reflux, there was evidence of mild pathologic acid reflux into the distal esophagus on day one, but not day two. Reported symptoms were few in nature and not accurately associated with documented acid reflux. NORMAL VALUES FOR WIRELESS pH CAPSULE STUDY 1. Total number of reflux episodes = less than 50. 2. Number of episodes longer than 5 minutes = less than 3. 3. Acid exposure time Total = less than 5.3% Upright = less than 6.3% Supine = less than 1.2%. ADDENDUM SAP expresses the likelihood that a specific symptom, i.e., heartburn, regurgitation, chest pain, is associated with acid reflux. By convention, SAP values greater than 95% are positive. Justin Starkey, PhD, MD cleaning manager, [facility] [employer] Chief, Section of Gastroenterology and Hepatology [facility] [place] [address] V: [phone] F: [phone] BEL/mian EC/CC: PCP - staff msg copy 11/07/15 Patient - mail copy 11/07/15 documented in this encounter Plan of Treatment Not on file documented as of this encounter Visit Diagnoses Diagnosis Gastroesophageal reflux disease, esophagitis presence not specified documented in this encounter Care Teams Bundle Shaker Relationship Specialty Start Date End Date Mary Alice Cage APRN PCP - General 10/12/11 11/12/18 documented as of this encounter
--- OUTSIDE RECORDS SUMMARY | 2024-03-17 18:31 | XMS_ITS | Encounter Summary ---
[place] [address] Care Team Providers Care Beater Out Leveling Machine Name Role Phone MariesMary Alice davis MANUELA Primary Care Provider [phone] Encounter Details Date Type Department Care Team (Late st Contact Info) Description 01/27/2016 Orders [place] [address] Lucretia Moreno LPN Low back pain, non-specific Social History Tobacco Use Types Packs/Day Years [...] of this encounter Progress Notes * Lucretia Moreno LPN - 01/27/2016 3:41 PM EDT MRI L spine with and without contrast ordered 01-26-[address] Ac[facility] staffmessage. documented in this encounter Plan of Treatment Not on file documented as of this encounter Visit Diagnoses Diagnosis Low back pain, non-specific documented in this encounter Care Teams Beater Out Leveling Machine Relationship Specialty Start Date End Date Mary Alice Cage APRN PCP - General 10/12/11 11/12/18 documented as of this encounter
--- OUTSIDE RECORDS SUMMARY | 2024-03-17 18:31 | XMS_ITS | Encounter Summary ---
[place] [address] Care Team Providers Care Bridal Gown Fitter Name Role Phone Mary Alice Cage APRN Primary Care Provider [phone] Reason for Visit * Reason Onset Date Comments Follow-up 12/13/2015 Encounter Details Date Type Department Care Team (Late st Contact Info) Description 12/13/2015 Telephone [place] [phone] Peg Abel, RN Follow-up Social History Tobacco [...] Telephone Encounter - Livia Abel RN - 12/13/2015 10:33 AM EDT Pt called and interested in follow up PFT results documented in this encounter Plan of Treatment Not on file documented as of this encounter Visit Diagnoses Not on filedocumented in this encounter Care Teams Bridal Gown Fitter Relationship Specialty Start Date End Date Mary Alice Cage APRN PCP - General 10/12/11 11/12/18 documented as of this encounter
--- OUTSIDE RECORDS SUMMARY | 2024-03-17 18:31 | XMS_ITS | Encounter Summary ---
[place] [address] Care Team Providers Care Collections Director Name Role Phone EdgecombeMary Alice davis Rajendra ROY Primary Care Provider [phone] Reason for Visit * Reason Onset Date Comments Other 10/20/2015 Explanation of A ppts Encounter Details Date Type Department Care Team (Late st Contact Info) Description 10/20/2015 Telephone [place] [address] Rosaura Amezcua Other (Explanation of Appts) Social History Tobacco Use Types Packs/Day Years [...] encounter Miscellaneous Notes * Telephone Encounter - Rosaura Amezcua - 10/20/2015 1:38 PM EST Pt called today stating she was very confused. Pt said it seemed like her appts have been changeda million times. Pt states she was called by Sylvie and didn't understand what was going on. I spoke with Sylvie. One of our GI docs requested that Sylvie add an endo pt on for 10/26/15, same day as pt's appts, so this moved time of pt's EGD. Unfortunately, there was a Donald attached to the EGD, and since motility nurse is overbooked that date, the Donald could not be changed. Pt's EGD time was changed back to original time (1:00 pm); pt was informed of this and also told that EGD would be done by Dr. Sepulveda and not BEL. Pt stated she was still confused as to arrival times, procedure times, appts displayed on her myD-Hpage. Pt and I went over what time she needed to arrive in motility lab 10/26/15 (9:45 am), and whattime she needed to arrive in endo (12:00 pm). We went over which tests would be performed and at what times, and pt stated she was writing this down. HREM at 10:00 am, Donald/EGD at 1:[address] Sepulveda instead of BEL. Pt said she was still confused, as there were four appts on her [facility] page. Iwent over each GI appt, explained reason for each, and time for each: HREM, Donald/EGD, tech appt w BEL (told her not to show up for this and explained why), fup appt w BEL in November. Pt also asked about returning Donald art supervisor and I reiterated what I told her when we booked the appt and what is in the letter she received: that the art supervisor needs to be returned in person within 72h of capsule placement. I also reminded pt that her letter sent to her in Sep had her arrival and appt times as well as prep instructions, a floor map showing her the way to endo and a floor map showing her where to return the Donald art supervisor. Pt said she wrote all this down and had her letter. -bcj documented in this encounter Plan of Treatment Not on file documented as of this encounter Visit Diagnoses Not on filedocumented in this encounter Care Teams Collections Director Relationship Specialty Start Date End Date Mary Alice Cage APRN PCP - General 3/2/12 4/3/19 documented as of this encounter
--- OUTSIDE RECORDS SUMMARY | 2024-03-17 18:31 | XMS_ITS | Encounter Summary ---
Author Organization [facility] [place] [address] Care Team Providers Care Business Writer Name Role Phone [place] GatewayMary Alice davis Rajendra ROY Primary Care Provider [phone] Encounter Details Date Type Department Care Team (Latest Contact Info) Description 12/09/2015 2:30 PM EDT - 12/09/2015 11:59 PM EDT Hospital En[place] [phone] COPD, moderate Discharge Disposition: Home Social History [...] Inhalational Spacing Device Spcr 2 puffs by [facility].(Non-Drug; Combo Route) route daily. promethazine [...] Procedure Notes * Delbert Nelson MD - 12/09/2015 4:57 PM EDTAssociated Order(s): PULMONARY FUNCTION TEST FEV1 and FVC are decreased. FEV1/FVC is normal. The diffusing capacity uncorrected for hemoglobin is decreased. Oxygen saturation on room air at rest is normal. Impression: Spirometry suggests a mild restrictive defect, which could be confirmed by measurement of lung volumes, if clinically indicated. The decreased diffusing capacity is a non-specific findingconsistent with a variety of cardiopulmonary disorders as well as anemia. documented in this encounter Plan of Treatment Not on file documented as of this encounter Procedures Procedure Name Priority Date/Time Associated Diagnosis Comments COMMON PULMONARY FUNCTION TEST Routine 12/09/2015 4:57 PM EDT COPD, moderate documented in this encounter Results * Pulmonary Function Testing (12/09/2015 4:57 PM EDT) Narrative Delbert Nelson MD - 12/09/2015 4:57 PM EDT Delbert Nelson MD ? 12/09/2015 ??4:57 PM FEV1 and FVC are decreased. ??FEV1/FVC is normal. ??The diffusing capacity uncorrected for hemoglobin is decreased. ??Oxygen saturation on room air at rest is normal. Impression: ??Spirometry suggests a mild restrictive defect, which could be confirmed by measurement of lung volumes, if clinically indicated. ??The decreased diffusing capacity is a non-specific finding consistent with a variety of cardiopulmonary disorders as well as anemia. Osmany Overton MD PFT ORDERABLES documented in this encounter Visit Diagnoses Diagnosis COPD, moderate Chronic airway obstruction, not elsewhere classified documented in this encounter Care Teams Business Writer Relationship Specialty Start Date End Date Mary Alice Cage APRN PCP - General 10/12/11 11/12/18 documented as of this encounter
--- OUTSIDE RECORDS SUMMARY | 2024-03-17 18:31 | XMS_ITS | Encounter Summary ---
[place] [address] Care Team Providers Care Datacap Developer Name Role Phone NilesMary Alice Rajendra ROY Primary Care Provider [phone] Reason for Visit * Auth/Cert Specialty Diagnoses / Procedures Referred By Chava alejo Referred To Contact Diagnoses Gerd monomity off meds 2 weeks Procedures PRO UPPER GI ENDOSCOPY, DIAGNOSTIC EGD, UPPER GI ENDOSCOPY Referral ID Status Reason Start Date Expiration Date Visits Re quested Visits Authorized [id number] 1 1 Encounter Details Date Type Department Care Team (Latest Contact Info) Description 10/26/2015 1:00 PM EDT Procedure [place] [address] Stef Paul RN Gastroesophageal reflux disease, esophagitis [...] Notes * Stef Paul RN - 10/26/2015 1:25 PM EDT 1:18pm Donald capsule deployed following EGD with Dr. Sepulveda Placed at 35cm from incisors without difficulty. Study being performed off acid suppresion First PH- 4.4 Donald teaching completed prior to procedures. Patient verbalized understanding of Donald procedure and use of the web marketing coordinator. documented in this encounter Plan of Treatment Not on file documented as of this encounter Visit Diagnoses Diagnosis Gastroesophageal reflux disease, esophagitis presence not specified documented in this encounter Care Teams Datacap Developer Relationship Specialty Start Date End Date Mary Alice Cage APRN PCP - General 10/12/11 11/12/18 documented as of this encounter
--- OUTSIDE RECORDS SUMMARY | 2024-03-17 18:31 | XMS_ITS | Encounter Summary ---
Author Organization [facility] [place] [address] Care Team Providers Care Shove Up Name Role Phone IsabellaMary Alice davis Rajendra ROY Primary Care Provider [phone] Reason for Visit * Reason Comments Follow-up Encounter Details Date Type Department Care Team (Late st Contact Info) Description 08/29/2015 1:00 PM EST [place] [address] Osmany Holloway MD [facility] [place] [address] Syncope, unspecified syncope type; PAH (pulmonary artery hypertension); COPD, moderate Social [...] Sign Reading Time Taken Comments Blood Pressure 135/75 08/29/2015 12:34 PM EST Pulse 79 08/29/2015 12:34 PM EST Temperature - - Respiratory Rate 22 08/29/2015 12:34 PM EST Oxygen Saturation 100% 08/29/2015 12:34 PM EST Inhaled Oxygen Concentration - - Weight 89.8 kg (198 lb) 08/29/2015 12:34 PM EST Height 155.4 cm (5' 1.2) 08/29/2015 12:34 PM ES T Body Mass Index 37.17 08/29/2015 12:34 PM EST documented in this encounter Progress Notes * Ines Lopez RN - 08/30/2015 2:22 PM EST Order for overnight oximetry on 2L oxygen faxed to [facility]. * Osmany Holloway MD - 08/29/2015 1:10 PM EST PULMONARY MEDICINE Follow-Up Follow-up 54 y.o. female with dyspnea, diaphragmatic weakness, with cervical nerve compression (s/psurgery) at multiple levels. S/P lumbar surgery for spinal stenosis, with residual incontinence. Still with cough, sputum, wheezing. States that she has had multiple syncopal episodes, without palpitations or lightheadedness. Cardiac ECHO showed good LV systolic function and moderately elevated PAS. On multiple antihypertensives. PAST MEDICAL HISTORY: Patient Active Problem List [...] ??? COPD, moderate J44.9 ??? Thrush B37.0 MEDICATIONS: Outpatient Prescriptions Marked as Taking for the 08/29/15 encounter (Office Visit) with Osmany Holloway MD Medication Sig Dispense Refill ??? HYDROcodone-acetaminophen (VICODIN) 5-300 mg Tablet Take 1 tablet by mouth every 4 hours. 10 mg ??? simvastatin (ZOCOR) 20 mg Tablet Take 20 mg by mouth nightly. ??? OXYGEN-AIR DELIVERY SYSTEMS ( CLASSIC OXYGEN CONCENTRATOR MISC) [place] [facility] [place]Non-Drug; Combo Route) route nightly. ??? chlorpheniramine (CHLOR-TRIMETON) 4 mg Tablet Take 4 mg by mouth every 6 hours as needed for Allergies. ??? DILTiazem (CARDIZEM) 30 mg Tablet Take 1 tablet by mouth 3 times daily for 30 days. 90 tablet 5 ??? dicyclomine (BENTYL) 10 mg Capsule Take 1 capsule by mouth 4 times daily. 120 capsule 11 ??? atenolol (TENORMIN) 25 mg Tablet Take 25 mg by mouth daily. ??? fluconazole (DIFLUCAN) 100 mg Tablet Take 1 tablet by mouth daily. 5 tablet 3 ??? gabapentin (NEURONTIN) 300 mg Capsule Take 3 capsules by mouth 3 times daily. 270 capsule 11 ??? spironolactone (ALDACTONE) 25 mg [...] 24 hrs Temperature Heart Rate Heart Rate: 79 Heart Rate: [79] Blood Pressure BP: 135/75 mmHg BP: (135)/(75) Respiratory Rate Resp: 22 Resp: [22] SpO2 SpO2: 100 % SpO2: [100 %] WDWN 54 y.o. female in NAD. HEENT-NC/AT; unremarkable Neck-supple without masses or, nodes Chest- quiet BS with bilat coarse rhonchi Heart-Normal rate and rhythm, without murmers, gallops, or rubs. Abdomen-benign without organomegaly or tenderness Extremities-no cyanosis, clubbing; 1+ LE edema Skin-no rashes or lesions Musculoskeletal-no joint swelling, tenderness, redness or deformities Neurologic-Nonfocal, without weakness or sensory deficits Lymphatics-unremarkable IMPRESSION: In summary, this is a 54 y.o. female with restrictive lung physiology, primarily extraparenchymal. Clinically has airflow obstruction, and responds to treatment for OAD. She has been using trhe 2L/M O2 at night but still has severe daytime somnolence. Will recheck overnight O2 sats and have her try a mask. Will also set up a cardiac event monitor for the syncopal episodes. Greater than 20 min of this 25 [...] ??The low-normal FEV1/FVC and disproportionate reduction in [id number] could represent a co-existent obstructive defect. ??The decreased diffusing capacity is a non-specific finding consistent with a variety of cardiopulmonary disorders (e.g. Emphysema) as well as anemia. Osmany Overton MD PFT ORDERABLES * Pulmonary Function Testing (12/09/2015 4:57 PM [...] Visit Diagnoses Diagnosis Syncope, unspecified syncope type PAH (pulmonary artery hypertension) Other chronic pulmonary heart diseases COPD, moderate Chronic airway obstruction, not elsewhere classified COPD, moderate Chronic airway obstruction, not elsewhere classified PAH (pulmonary artery hypertension) Other chronic pulmonary heart diseases COPD, moderate Chronic airway obstruction, not elsewhere classified documented in this encounter Care Teams Shove Up Relationship Specialty Start Date End Date Mary Alice Cage APRN PCP - General 10/12/11 11/12/18 documented as of this encounter
--- OUTSIDE RECORDS SUMMARY | 2024-03-17 18:31 | XMS_ITS | Encounter Summary ---
Author [facility] [address] Care Team Providers Care Rubber Tubing Backer Name Role Phone Mary Alice Cage APRN Primary Care Provider [phone] Reason for Visit * Reason Comments Medication Refill Encounter Details Date Type Department Care Team (Late st Contact Info) Description 11/26/2015 Refill [place] [address] Justin Starkey MD [facility] [place] [address] Gastroesophageal reflux disease, esophagitis presence not specified [...] specified documented in this encounter Care Teams Rubber Tubing Backer Relationship Specialty Start Date End Date Mary Alice Cage APRN PCP - General 10/12/11 11/12/18 documented as of this encounter
--- OUTSIDE RECORDS SUMMARY | 2024-03-17 18:32 | XMS_ITS | Encounter Summary ---
[place] [address] Care Team Providers Care Marine Pilot Name Role Phone Niles Mary Alicepham Drew APRN Primary Care Provider [phone] Reason for Referral * Physical Therapy (Routine) - Closed Specialty Diagnoses / Procedures Referred By Chava alejo Referred To Contact Physical Therapy Diagnoses Right lumbar radiculopathy Rios Acuna MD [facility] [place] [address] Referral ID Status Reason Start Date Expiration Date V isits Requested Visits Authorized [id number] Closed Evaluate and Treat 01/06/2015 07/05/2015 12 12 Encounter Details Date Type Department Care Team (Late st Contact Info) Description 01/06/2015 Orders [place] [address] Chen Valencia, RN Right lumbar radiculopathy Social History Tobacco Use Types Packs/Day Years [...] as of this encounter Progress Notes * Chen Valencia RN - 01/06/2015 10:14 AM EDT PT order replaced (as ordered previously ) to allow pt to schedule as last order given order date not acceptable to outside PT documented in this encounter Plan of Treatment Scheduled Referrals Name Type Priority Associated Diagnoses Orde r Schedule Referral to Physical Therapy Outpatient Referral Routine Right lumbar radiculopathy Ordered: 01/06/2015 documented as of this encounter Visit Diagnoses Diagnosis Right lumbar radiculopathy Thoracic or lumbosacral neuritis or radiculitis, unspecified documented in this encounter Care Teams Marine Pilot Relationship Specialty Start Date End Date Mary Alice Cage APRN PCP - General 10/12/11 11/12/18 documented as of this encounter
--- OUTSIDE RECORDS SUMMARY | 2024-03-17 18:32 | XMS_ITS | Encounter Summary ---
Author Organization [facility] [place] [address] Care Team Providers Care Radioactivity Technician Name Role Phone HillsdaleMary Alice davis MANUELA Primary Care Provider [phone] Encounter Details Date Type Department Care Team (Late st Contact Info) Description 11/30/2014 10:15 AM EDT [place] [address] SCHEDULE 1, PFT Osmany Holloway MD [facility] [place] [address] Dyspnea Discharge Disposition: Home Social History Tobacco Use [...] Sign Reading Time Taken Comments Blood Pressure 151/80 11/30/2014 10:59 AM EDT Pulse 78 11/30/2014 10:59 AM EDT Temperature - - Respiratory Rate 20 11/30/2014 10:59 AM EDT Oxygen Saturation 96% 11/30/2014 10:59 AM EDT Inhaled Oxygen Concentration - - Weight 92.5 kg (204 lb) 11/30/2014 10:59 AM EDT Height 154.9 cm (5' 1) 11/30/2014 10:59 AM EDT Body Mass Index 38.55 11/30/2014 10:59 AM EDT documented in this encounter Progress Notes * Osmany Holloway MD - 11/30/2014 11:44 AM EDT PULMONARY MEDICINE Follow-Up Follow-up 54 y.o. female with dyspnea, diaphragmatic weakness, with cervcal nerve compression (s/p surgery) at multiple levels. S/P lumbar surgery for spinal stenosis, with residual incontinence. Still with cough, sputum. Tried to quit smoking many times, but w/o success. Still dyspneic on minimal exertion. PAST MEDICAL HISTORY: Patient Active Problem List Diagnosis Code ??? Abdominal distention 787.3 ??? Multiple nodules of lung 793.19 ??? Dyspnea 786.09 ??? Biliary colic 574.20 ??? Herniated nucleus pulposus, C6-7 Right, S/P C5-7 ACDF 09/08/13 722.0 ??? Urinary retention with incomplete bladder emptying- improved 788.21 ??? Cigarette smoker 305.1 ??? Allergic rhinitis 477.9 ??? Depression 311 ??? Anxiety 300.00 ??? Esophageal reflux 530.81 ??? Chronic diarrhea 787.91 ??? 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 Hypertension 401.9 ??? Radiculopathy of lumbar region 724.4 ??? Trochanteric bursitis 726.5 ??? Edema 782.3 MEDICATIONS: Outpatient Prescriptions Marked as Taking for the 11/30/14 encounter (Follow-Up) with Osmany Holloway MD Medication Sig Dispense Refill ??? METRONIDAZOLE (FLAGYL ORAL) Take by mouth 3 times daily. ??? fluconazole (DIFLUCAN) 100 mg Tablet Take 100 mg by mouth daily. Indications: During antibiotic. ??? gabapentin (NEURONTIN) 300 mg Capsule Take [...] are having diarrhea. 120 tablet 7 ??? dicyclomine (BENTYL) 10 mg Capsule Take 10 mg by mouth 4 times daily (before meals and nightly). ??? albuterol (PROVENTIL HFA;VENTOLIN HFA) 90 mcg/actuation HFA Aerosol Inhaler Inhale 2 puffs intothe lungs every 4 hours as needed. Use with spacer ??? ibuprofen (ADVIL;MOTRIN) 800 mg Tablet Take 800 mg by mouth 3 times daily. ??? acetaminophen (TYLENOL) 500 mg Tablet Take 1,000 mg by mouth 3 times daily. ??? Inhalational Spacing Device Spcr 2 puffs [place] [facility] [place]Non-Drug; Combo Route) route daily. ??? fluticasone (FLONASE) [...] Take 10 mg by mouth daily. ??? pseudoephedrine (SUDAFED) 30 mg tablet Take 30 mg by mouth every 4 hours as needed. ??? guaiFENesin (ROBITUSSIN) 100 mg/5 mL syrup Take 200 mg by mouth 3 times daily as needed. ??? citalopram (CELEXA) 40 mg tablet Take 1 tablet by mouth daily. 90 tablet 3 ALLERGIES: Pneumococcal vaccine; Albuterol; and Egg PHYSICAL EXAM Last value Range last 24 hrs Temperature Heart Rate Heart Rate: 78 Heart Rate: [78] Blood Pressure BP: 151/80 mmHg BP: (151)/(80) Respiratory Rate Resp: 20 Resp: [20] SpO2 SpO2: 96 % SpO2: [96 %] WDWN 54 y.o. female in NAD. HEENT-NC/AT; unremarkable Neck-supple without masses or, nodes Chest- quiet but clear bilaterally at rest. Heart-Normal rate and rhythm, without murmers, gallops, or rubs. Abdomen-benign without organomegaly or tenderness Extremities-no cyanosis, clubbing; 1-2+ LE edema Skin-no rashes or lesions Musculoskeletal-no joint swelling, tenderness, redness or deformities Neurologic-Nonfocal, without weakness or sensory deficits Lymphatics-unremarkable IMPRESSION: In summary, this is a 54 y.o. female with restrictive lung physiology, primarily extraparenchymal. Her overnight oximetry was OK in 2012 but she has gained quite a bit of weight since then. She has daytime somnolence and mild PAH on ECHO today. Also has elevated L-sided filling pressures, which may be the root cause of her mild PAH as well as her THOMAS. I discussed with her the need to get MUCH better control of her BP. I discussed with her another overnight oximetry, and will repeat the HRCT of chest. Discussed the use of her inhalers and the nature of her known and unknown diseases. F/U in 3 months with HRCT/PFTs. Greater than 30 min of this 40 minute visit was spent in face to face discussion with the patient regarding the nature and complexity of the problems described above, and the details of our diagnostic and therapeutic plans. Had extensive discussion about smoking cessation. documented in this encounter Plan of Treatment Not on file documented as of this encounter Results * Pulmonary Function Testing (02/21/2015 5:18 PM EDT) Narrative José Manuel Burns MD - 02/21/2015 5:18 PM EDT José Manuel Burns MD ? 02/21/2015 ??5:18 PM Forced vital capacity is reduced. FEV1 is reduced. The ratio is normal. Flow volume loops show some flattening of the curve. Diffusing capacity is reduced. Spirometry suggests some restrictive disease. Suggest lung bombs clinically indicated. In addition flow volume loops suggests some flattening of the curve. Suggest clinical correlation. Diffusing capacity is reduced. This latter finding may be seen in pulmonary vascular disease, interstitial disease, or anemia. Osmany Overton MD PFT ORDERABLES * CT chest WO contrast (02/21/2015 10:19 AM EDT) Anatomical Region Laterality Modality Chest Computed Tomogra phy 02/21/2015 10:1 9 AM EDT Impressions 02/21/2015 11:50 AM EDT Impression: 1. Innumerable calcified and noncalcified tiny pulmonary nodules are stable and are consistent with old granulomatous infection. 2. Mild pulmonary emphysema. 3. Stable left adrenal lesion most likely represents an adenoma. This report was reviewed by Coleman Bal at 02/21/2015 11:45 AM Film and interpretation reviewed by the attending Narrative 02/21/2015 11:50 AM EDT EXAMINATION: CT Chest Without Contrast CLINICAL HISTORY: cough, nodules TECHNIQUE: Noncontrast axial CT images were acquired through the chest with coronal and sagittal MPR reconstructions. COMPARISON: 08/07/2012 FINDINGS: There is mild paraseptal and centrilobular pulmonary emphysema. There is no evidence of airway thickening or filling defects. Innumerable small scattered calcified and noncalcified pulmonary nodules are again seen in both lungs that are unchanged or smaller from the previous study. There are no new nodules or areas of consolidation. There is no evidence of mediastinal, hilar or axillary lymphadenopathy. Chest wall and lower neck appear normal. There is mild ectasia of the ascending aorta measuring 3.7 cm, unchanged from previous exam. Coronary artery calcifications are noted. There is no pericardial fluid. Heart size is upper limits of normal. A stable 1.5 cm cyst is seen in the medial segment of the left hepatic lobe. There is a stable 2.7 cm lesion in the left adrenal gland measuring 5 Hounsfield units. ??Surgical hardware seen in the lower cervical spine. Minor degenerative disc disease is noted in the thoracic spine. No additional osseous abnormalities are demonstrated. Procedure Note Coleman Bal MD - 02/21/2015 EXAMINATION: CT Chest Without Contrast CLINICAL HISTORY: cough, nodules TECHNIQUE: Noncontrast axial CT images were acquired through the chestwith coronal and sagittal MPR reconstructions. COMPARISON: 08/07/2012 FINDINGS: There is mild paraseptal and centrilobular pulmonary emphysema. There isno evidence of airway thickening or filling defects. Innumerable smallscattered calcified and noncalcified pulmonary nodules are again seen in both lungsthat are unchanged or smaller from the previous study. There are no new nodulesor areas of consolidation. There is no evidence of mediastinal, hilar or axillary lymphadenopathy.Chest wall and lower neck appear normal. There is mild ectasia of the ascendingaorta measuring 3.7 cm, unchanged from previous exam. Coronary arterycalcifications are noted. There is no pericardial fluid. Heart size is upper limits ofnormal. A stable 1.5 cm cyst is seen in the medial segment of the left hepaticlobe. There is a stable 2.7 cm lesion in the left adrenal gland measuring 5Hounsfield units. Surgical hardware seen in the lower cervical spine. Minordegenerative disc disease is noted in the thoracic spine. No additional osseousabnormalities are demonstrated. IMPRESSION Impression: 1. Innumerable calcified and noncalcified tiny pulmonary nodules arestable and are consistent with old granulomatous infection. 2. Mild pulmonary emphysema. 3. Stable left adrenal lesion most likely represents an adenoma. This report was reviewed by Coleman Bal at 02/21/2015 11:45 AM Film and interpretation reviewed by the attending Osmany Overton MD IMG CT ORDERABLES documented in this encounter Visit Diagnoses Diagnosis Dyspnea Other dyspnea and respiratory abnormality Dyspnea Other dyspnea and respiratory abnormality Dyspnea Other dyspnea and respiratory abnormality documented in this encounter Care Teams Radioactivity Technician Relationship Specialty Start Date End Date Mary Alice Cage APRN PCP - General 10/12/11 11/12/18 documented as of this encounter
--- OUTSIDE RECORDS SUMMARY | 2024-03-17 18:32 | XMS_ITS | Encounter Summary ---
[place] [address] Care Team Providers Care General Engineer Name Role Phone Mary Alice Cage MANUELA Primary Care Provider [phone] Reason for Visit * Reason Onset Date Comments Advice Only 12/21/2014 Encounter Details Date Type Department Care Team (Late st Contact Info) Description 12/21/2014 Telephone [place] [id number] Ej Gilbert, work counselor Only Social History Tobacco Use Types Packs/Day Years [...] Telephone Encounter - Ej Gilbert RN - 12/21/2014 2:[address] Starkey No change except, okay for a trial of ciprofloxacin. We have discussed risks of antibiotics before. She understands possibility of C. Diff. She was willing to accept that risk. Plan: cipro - 500 mg po bid x 10 days. No refills. Make sure she follows up with pcp as scheduled. No other tests or plans. Her follow up should be 6 months after our last visit. We can review symptoms again at that time. Relayed above to patient. Patient will try ciprofloxacin for 10 days. Discussed stacey of C. Diff with patient. She requested aprescription of diflucan as well since I always get a yeast infection on antibiotics. Will ask Dr. Starkey to order. Preferred pharmacy is [facility] in [place]. Patient will call with update after cipro course. Reviewed importance of following up with weight loss with PCP. Patient verbalized agreement. Transferred patient to Dr. Starkey's hand engraver to schedule f/u appointment for this winter. * Telephone Encounter - Ej Gilbert RN - 12/21/2014 12:40 PM EDT Patient calls with an update for Dr. Starkey. No real improvement since last follow-up. Patient's primary concern is bloating and weight gain. Bowel movements 3-4 times a day. Soft stool. No episodes of incontinence. Continued bloating and chest discomfort. Dr. Starkey's most recent plan with updates as follows: 1. Follow up with PCP for medical and psychological issues. I am quite concerned about her 45-poundweight gain over the last year. Patient says she's keeping a low fat diet. Still gaining weight. Weight is over 200 lb. She has seen her PCP at least once a month. 2. Follow up with accounting software specialist as scheduled for her worsening shortness of breath. Seeing accounting software specialist. Breathing makes exercise difficult. 3. 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 t.i.d. for 10days. She will call in five weeks. If no help, then the next reasonable trial would be ciprofloxacin. She understands the difficulty in trying to identify the methane-producing bacteria which causes many of her symptoms. Completed flagyl course. No improvement noted during or after. 4. For PRO, continue Dexilant at 60 mg q.a.m. 5. 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 Increase her Neurontin. She is currently on 600 in the morning and 900 in the evening. I have given her a new prescription so that over the course of the next month she can slowly increase to 900mg p.o. t.i.d. This should help her chronic visceral pain, her back pain, and also help her esophage al pain. Taking 900 TID, no real improvement with the pain. Is managing the esophageal spasms by stopping eating when she's getting backed up. 6. Kegel exercises four times daily to help with fecal incontinence. Doing kegels 7. For IBS with diarrhea, continue to use Lomotil. She may use up to two tablets four times daily. Taking 1-2 in the morning and in the afternoon as well. 8. No specialized tests have been scheduled. 9. She will call in five weeks. 10. I will see her in followup in six months. documented in this encounter Plan of Treatment Not on file documented as of this encounter Visit Diagnoses Diagnosis Diarrhea Dyspnea Other dyspnea and respiratory abnormality documented in this encounter Care Teams General Engineer Relationship Specialty Start Date End Date Mary Alice Cage APRN PCP - General 10/12/11 11/12/18 documented as of this encounter
--- OUTSIDE RECORDS SUMMARY | 2024-03-17 18:32 | XMS_ITS | Encounter Summary ---
Author Organization [facility] [address] Care Team Providers Care Extended Insurance Clerk Name Role Phone Mary Alice Cage Rajendra ROY Primary Care Provider [phone] Reason for Visit * Reason Onset Date Comments Medication Refill 02/25/2015 Encounter Details Date Type Department Care Team (Late st Contact Info) Description 02/25/2015 Telephone [place] [address] Osmany Holloway MD [facility] [place] [address] Medication Refill Social History Tobacco Use Types Packs/Day [...] encounter Miscellaneous Notes * Telephone Encounter - Osmany Holloway MD - 02/27/2015 3:51 PM EDT Rx O2 documented in this encounter Plan of Treatment Not on file documented as of this encounter Visit Diagnoses Diagnosis Chronic airway obstruction, not elsewhere classified documented in this encounter Care Teams Extended Insurance Clerk Relationship Specialty Start Date End Date Mary Alice Cage APRN PCP - General 10/12/11 11/12/18 documented as of this encounter
--- OUTSIDE RECORDS SUMMARY | 2024-03-17 18:32 | XMS_ITS | Encounter Summary ---
[place] [address] Care Team Providers Care Propagation Manager Name Role Phone Mary Alice Cage APRN Primary Care Provider Reason for Referral * Physical Therapy (Routine) - Closed Specialty Diagnoses / Procedures Referred By Chava alejo Referred To Contact Physical Therapy Diagnoses Right lumbar radiculopathy Rios Acuna MD [facility] [place] [address] Referral ID Status Reason Start Date Expiration Date V isits Requested Visits Authorized [id number] Closed Evaluate and Treat 09/16/2014 03/15/2015 1 1 Reason for Visit * Reason Comments Back Pain Encounter Details Date Type Department Care Team (Latest Contact Info) Description 09/16/2014 11:00 AM EST Office [place] [address] Rios Acuna MD [facility] [place] [address] Right lumbar radiculopathy Discharge Disposition: Home Social History Tobacco Use [...] Progress Notes * Rios Acuna MD - 09/16/2014 11:26 AM EST DATE OF SURGERY: 08/31/2014 SURGERY: Right L4-L5 far lateral diskectomy. INTERVAL HISTORY: Ms. Mclaughlin returns today just over two weeks out from a right L4-L5 far lateral diskectomy. She is doing well. Her right lower extremity pain is markedly improved. She continues to have chronic low back pain which she feels is now about at her baseline. She is taking 5 mg of oxycodone four times a day. She denies any fevers, chills or drainage from the wound. In addition, she also has underwent a C5 through C7 ACDF one year ago. She is having minimal neck pain. No upper extremity pain. She is pleased with how she is doing with that. PHYSICAL EXAMINATION: General: The patient is comfortable, in no acute distress. Neck: Her neck is nontender to palpation. She can flex 30 degrees, extend 40 degrees, rotate 50 degrees and side bend 20 degrees. Neurologic Exam: She has 5/5 strength in all upper and lower extremity motor groups. She has a normal sensory exam in the upper and lower extremities. IMAGING: AP and lateral views of the lumbar spine obtained today demonstrate no change in alignment of the spine. She has marked degenerative changes in the lower lumbar spine. Lateral flexion and extension x-rays of the cervical spine obtained today demonstrate a solid fusion at C5-C6. There may be a subtle radiolucency between the graft and the inferior endplate of C6 that is only visible on the flexion view. There is no motion between the spinous processes from flexion to extension. Nothing to suggest hardware failure or loosening. ASSESSMENT/PLAN: Ms. Mclaughlin is just over two weeks out from her lumbar diskectomy and about a year out from her neck surgery. She is doing well in terms of both. Her lumbar incision is well healed. I gave her a prescription for 30 more oxycodone tablets and told her that she should wean herself off those by the end of that supply. If she needs more pain medication, she should see her primary care physician. I also gave her a prescription for physical therapy for the back. I will follow up with her on an as-needed basis. documented in this encounter Plan of Treatment Scheduled Referrals Name Type Priority Associated Diagnoses Orde r Schedule Referral to Physical Therapy Outpatient Referral Routine Right lumbar radiculopathy Ordered: 09/16/2014 documented as of this encounter Visit Diagnoses Diagnosis Right lumbar radiculopathy Thoracic or lumbosacral neuritis or radiculitis, unspecified documented in this encounter Care Teams Propagation Manager Relationship Specialty Start Date End Date Mary Alice Cage APRN PCP - General 10/12/11 11/12/18 documented as of this encounter
--- OUTSIDE RECORDS SUMMARY | 2024-03-17 18:32 | XMS_ITS | Encounter Summary ---
Author Organization Formerly [facility] Address [facility] [place] [address] Care Team Providers Care Supervisor Molding Name Role Phone Mary Alice Cage APRN Primary Care Provider [phone] Encounter Details Date Type Department Care Team (Latest Contact Info) Description 09/16/2014 10:05 AM EST - 09/16/2014 11:59 PM [facility] Hospital Encounter XRay at [address] [place] [address] Radiculopathy of lumbar region Social History Tobacco [...] Sig Dispensed Refills Start Date End Date diphenoxylate-atropine (LOMOTIL) 2.5-0.025 mg Tablet Take 1 tablet by mouth 4 times daily. DO NOT restarted this unless you are having diarrhea. 120 tablet 7 06/11/2014 albuterol (PROVENTIL HFA;VENTOLIN HFA) 90 mcg/actuation HFA Aerosol Inhaler Inhale 2 puffs into the lungs every 4 hours as needed. Use with spacer Inhalational Spacing Device Spcr 2 puffs by [facility].(Non-Drug; Combo Route) route daily. promethazine (PHENERGAN) 25 mg tablet Take 25 mg by mouth every 6 hours as needed. MULTIVITAMIN ORAL Take 2 tablets by mouth daily. ASCORBATE CALCIUM (VITAMIN C ORAL) Take 1 tablet by mouth daily. cholecalciferol, Vitamin D3, 400 unit tablet Take 400 Units by mouth daily. loratadine (CLARITIN) 10 mg tabletIndications:Mult iple nodules of lung Take 10 mg by mouth daily. oxyCODONE (ROXICODONE) 5 mg Tablet Take 1 tablet by mouth every 6 hours as needed for Pain. 30 tablet 0 09/16/2014 11/18/2014 spironolactone (ALDACTONE) 25 mg Tablet Take 25 mg by mouth daily. 07/09/2016 lisinopril (PRINIVIL;ZESTRIL) 10 mg TabletIndications:Giovanny a,Hypertension Take 1 tablet by mouth daily. 30 tablet 12 08/03/2014 07/09/2016 BUDESONIDE/FORMOTEROL FUMARATE (SYMBICORT INHL) Inhale 2 puffs into the lungs every 12 hours. 09/13/2017 dicyclomine (BENTYL) 10 mg Capsule Take 10 mg by mouth 4 times daily (before meals and nightly). 05/24/2015 dexlansoprazole (DEXILANT) 60 mg Cap, Delayed Rel., Multiphasic Take 60 mg by mouth daily. 11/18/2014 ibuprofen (ADVIL;MOTRIN) 800 mg Tablet Take 800 [...] mg by mouth 2 times daily. 11/25/2018 gabapentin (NEURONTIN) 300 mg capsule Take 300 mg by mouth daily. 11/18/2014 VITAMIN B COMPLEX ORAL Take 1 tablet by mouth. 09/13/2017 pseudoephedrine (SUDAFED) 30 mg tabletIndications:Mult iple nodules of lung Take 30 mg by mouth every 4 hours as needed. 08/11/2015 guaiFENesin (ROBITUSSIN) 100 mg/5 mL syrupIndications:Multi ple [...] LUMBAR SPINE 2 OR 3 VIEWS Routine 09/16/2014 10:29 AM EST Radiculopathy of lumbar region documented in this encounter Results * XR lumbar spine 2 or 3 views (09/16/2014 10:29 AM EST) Anatomical Region Laterality Modality L-spine N/A Radiographic Martha ging 09/16/2014 10:2 9 AM EST Impressions 09/16/2014 10:49 AM EST IMPRESSION: No interval change. Narrative 09/16/2014 10:49 AM EST EXAMINATION: LSPINE 2 OR 3 VIEWS CLINICAL HISTORY: s/p surgery TECHNIQUE: Standing AP and lateral lumbar spine COMPARISON: 07/07/2014 FINDINGS: There is no interval change. Again noted are mild levoscoliosis grade 1 anterolisthesis of L5 on S1, mild disc space narrowing at L5-S1 and facet arthropathy at L4 through S1. Procedure Note Maik Villatoro MD - 09/16/2014 EXAMINATION: LSPINE 2 OR 3 VIEWS CLINICAL HISTORY: s/p surgery TECHNIQUE: Standing AP and lateral lumbar spine COMPARISON: 07/07/2014 FINDINGS: There is no interval change. Again noted are mild levoscoliosis grade 1 anterolisthesis of L5 on S1, mild disc space narrowing at L5-S1 andfacet arthropathy at L4 through S1. IMPRESSION IMPRESSION: No interval change. Rios Acuna MD IMG DX ORDERABLES documented in this encounter Visit Diagnoses Diagnosis Radiculopathy of lumbar region Thoracic or lumbosacral neuritis or radiculitis, unspecified documented in this encounter Care Teams Supervisor Molding Relationship Specialty Start Date End Date Mary Alice Cage APRN PCP - General 10/12/11 11/12/18 documented as of this encounter
--- OUTSIDE RECORDS SUMMARY | 2024-03-17 18:32 | XMS_ITS | Encounter Summary ---
[place] [address] Care Team Providers Care Blue Split Trimmer Name Role Phone [place]Mary Alice davis MANUELA Primary Care Provider [phone] Reason for Visit * Reason Onset Date Comments Advice Only 08/16/2015 Encounter Details Date Type Department Care Team (Late st Contact Info) Description 08/16/2015 Refill [place] [address] Ej Gilbert RN Thrush Social History Tobacco Use Types Packs/Day Years [...] Telephone Encounter - Ej Gilbert RN - 08/16/2015 9:33 AM EST Patient calls requesting script for diflucan. States that she started her antibiotic yesterday and is worried about getting a yeast infection. Patient says that Dr. Starkye told her he was going to callin a prescription for diflucan for her, but didn't. Patient states that she is not currently havingsymptoms of a yeast infection but I always get it in at least one place. Note that patient was prescribed diflucan 100 mg PO daily x 5 days on 02/21/[address] Holloway with 3refills. Called [facility] pharmacy in [place]. Pharmacist states she has all three refills remaining. Left message for patient that she has 3 refills remaining and doesn't need a new script at this time. documented in this encounter Plan of Treatment Not on file documented as of this encounter Visit Diagnoses Diagnosis Thrush Candidiasis of mouth documented in this encounter Care Teams Blue Split Trimmer Relationship Specialty Start Date End Date Mary Alice Cage APRN PCP - General 10/12/11 11/12/18 documented as of this encounter
--- OUTSIDE RECORDS SUMMARY | 2024-03-17 18:32 | XMS_ITS | Encounter Summary ---
[place] [address] Care Team Providers Care Manager Therapy Name Role Phone Mary Alice Cage Rajendra ROY Primary Care Provider [phone] Reason for Visit * Reason Onset Date Comments Prior Authorization 04/14/2015 Dexilant Encounter Details Date Type Department Care Team (Late st Contact Info) Description 04/14/2015 Telephone [place] [id number] Gardenia Bueno CMA GASTROENTEROLOGY DEPT Prior Authorization (Dexilant) Social History Tobacco Use Types Packs/Day Years [...] encounter Miscellaneous Notes * Telephone Encounter - Renetta Greenfield MA - 04/26/2015 10:33 AM EDT PRIOR AUTHORIZATION REQUEST for: dexilant Dose/Instructions: 60 mg QD Quantity/supply/refills: refill 11 Patient???s Preferred Pharmacy: [facility] [phone] Reason PA is needed: non formulary New Request or PA Renewal?: PA renewel Previously Approved? Yes ( see Debbie Note) PA Case No., Date Issued, Dated , Case No.: PA REQUEST SUBMITTED to: [place] medicaid Phone and [phone] Patient???s RX Insurance Plan ID No.: [id number] Rx Insurer???s Preferred drugs: PA Case No. Date Submitted: 04/14/2015 How Submitted: Fax Transmission Confirmed?: MEDICAL HISTORY/INFORMATION: Prescribing Provider: Justin Starkey Diagnosis and ICD Code (1): GERD 530.80 Diagnosis and ICD Code (2): Nutcracker esophagus Currently Taking or New Prescription? Currently taking Medications Previously Tried (list each medication name, dates tried, reasons failed): aciphex, omeprazole Contributing Conditions/Relevant History: PA REQUEST FOLLOW-UP: Expected Date of Response: 04/19/2015 Expected Form of Response: (phone, fax, letter) fax Documents Scanned: PA Notice Received from Pharmacy Completed Copy of Rx Insurance Provider???s PA Request Form PA REQUEST FOLLOW-UP ORIGINAL PA REQUEST for: Dexilant 60 mg ORIGINAL PA REQUEST SUBMITTED to: [employer] Rx Insurer: Phone and Fax: Patient???s RX Insurance Plan ID No.: PA Case No. Date Submitted: PA REQUEST APPROVED: PA Case No./Approval No.: [id number] Effective Dates: 04/15/2015-04/15/2016 Special Conditions/Notes: * Telephone Encounter - Renetta Greenfield MA - 04/15/2015 1:25 PM EDT Dexilant prior authorization received, still in process. * Telephone Encounter - Gardenia Bueno CMA - 04/14/2015 4:52 PM EDT PRIOR AUTHORIZATION REQUEST for: dexilant Dose/Instructions: 60 mg QD Quantity/supply/refills: refill 11 Patient???s Preferred Pharmacy: [facility] [phone] Reason PA is needed: non formulary New Request or PA Renewal?: PA renewel Previously Approved? Yes ( see Debbie Note) PA Case No., Date Issued, Dated , Case No.: PA REQUEST SUBMITTED to: [place] medicaid Phone and [phone] Patient???s RX Insurance Plan ID No.: [id number] Rx Insurer???s Preferred drugs: PA Case No. Date Submitted: 04/14/2015 How Submitted: Fax Transmission Confirmed?: MEDICAL HISTORY/INFORMATION: Prescribing Provider: Justin Starkey Diagnosis and ICD Code (1): GERD 530.80 Diagnosis and ICD Code (2): Nutcracker esophagus Currently Taking or New Prescription? Currently taking Medications Previously Tried (list each medication name, dates tried, reasons failed): aciphex, omeprazole Contributing Conditions/Relevant History: PA REQUEST FOLLOW-UP: Expected Date of Response: 04/19/2015 Expected Form of Response: (phone, fax, letter) fax Documents Scanned: PA Notice Received from Pharmacy Completed Copy of Rx Insurance Provider???s PA Request Form PA REQUEST FOLLOW-UP ORIGINAL PA REQUEST for: ORIGINAL PA REQUEST SUBMITTED to: Rx Insurer: Phone and Fax: Patient???s RX Insurance Plan ID No.: PA Case No. Date Submitted: PA REQUEST APPROVED: PA Case No./Approval No.: [id number] Effective Dates: 04/15/2015-04/15/2016 Special Conditions/Notes: documented in this encounter Plan of Treatment Not on file documented as of this encounter Procedures Procedure Name Priority Date/Time Associated Diagnosis Comments GI SCAN Routine 04/20/2015 GI SCAN Routine 04/16/2015 documented in this encounter Results * Scan Doc: GI (04/20/2015) Gardenia Bueno CMA MEDIA MGR SCAN EXT O RDR/RSLT * Scan Doc: GI (04/16/2015) Renetta Greenfield MA MEDIA MGR SCAN EXT O RDR/RSLT documented in this encounter Visit Diagnoses Not on filedocumented in this encounter Care Teams Manager Therapy Relationship Specialty Start Date End Date Mary Alice Cage APRN PCP - General 10/12/11 11/12/18 documented as of this encounter
--- OUTSIDE RECORDS SUMMARY | 2024-03-17 18:32 | XMS_ITS | Encounter Summary ---
Author Organization [facility] [address] Care Team Providers Care Heel Padder Name Role Phone Mary Alice Cage APRN Primary Care Provider [phone] Reason for Visit * Reason Comments Medication Refill Encounter Details Date Type Department Care Team (Late st Contact Info) Description 08/17/2015 [place] [address] Justin Starkey MD [facility] [place] [address] Social History Tobacco Use Types Packs/Day Years [...] on filedocumented in this encounter Care Teams Heel Padder Relationship Specialty Start Date End Date Mary Alice Cage APRN PCP - General 10/12/11 11/12/18 documented as of this encounter
--- OUTSIDE RECORDS SUMMARY | 2024-03-17 18:32 | XMS_ITS | Encounter Summary ---
Author Organization [facility] [address] Care Team Providers Care Occupational Therapist Home Based Name Role Phone ClayMary Alice davis Rajendra ROY Primary Care Provider [phone] Encounter Details Date Type Department Care Team (Late st Contact Info) Description 11/30/2014 9:22 AM EDT - 11/30/2014 11:59 PM EDT Hospital [place] [address] Dyspnea Social History Tobacco Use Types Packs/Day Years [...] lung Take 10 mg by mouth daily. METRONIDAZOLE (FLAGYL ORAL)Indications:Dyspn ea Take by mouth 3 times daily. 08/11/2015 fluconazole (DIFLUCAN) 100 mg TabletIndications:Duri ng antibiotic. Take 100 mg by mouth daily. Indications: During antibiotic. 12/21/2014 gabapentin (NEURONTIN) 300 mg Capsule Take 3 [...] times daily (before meals and nightly). 05/24/2015 ibuprofen (ADVIL;MOTRIN) 800 mg Tablet Take 800 [...] as of this encounter Procedure Notes * Bhavani Carr MD - 12/01/2014 2:27 PM EDTAssociated Order(s): PULMONARY FUNCTION TEST Both the FEV1 and FVC are reduced. The FEV1/FVC ratio is normal. Lung volumes are recommended. The total lung capacity is normal. The elevated RV/TLC ratio may suggest concomitant air trapping. Diffusion capacity is moderately reduced. The oxygen saturation on room air at rest is normal. Bhavani Carr MD documented in this encounter Plan of Treatment Not on file documented as of this encounter Procedures Procedure Name Priority Date/Time Associated Diagnosis Comments COMMON PULMONARY FUNCTION TEST Routine 12/01/2014 2:28 PM EDT Dyspnea documented in this encounter Results * Pulmonary Function Testing (12/01/2014 2:28 PM EDT) Narrative Bhavani Carr MD - 12/01/2014 2:28 PM EDT Bhavani Carr MD ? 12/01/2014 ??2:28 PM Both the FEV1 and FVC are reduced. The FEV1/FVC ratio is normal. Lung volumes are recommended. The total lung capacity is normal. The elevated RV/TLC ratio may suggest concomitant air trapping. Diffusion capacity is moderately reduced. The oxygen saturation on room air at rest is normal. Bhavani Carr MD Osmany Overton MD PFT ORDERABLES documented in this encounter Visit Diagnoses Diagnosis Dyspnea Other dyspnea and respiratory abnormality documented in this encounter Care Teams Occupational Therapist Home Based Relationship Specialty Start Date End Date Mary Alice Cage APRN PCP - General 10/12/11 11/12/18 documented as of this encounter
--- OUTSIDE RECORDS SUMMARY | 2024-03-17 18:32 | XMS_ITS | Encounter Summary ---
Author Organization [facility] [place] [address] Care Team Providers Care Bobbin Loose End Finder Name Role Phone Mary Alice Cage MANUELA Primary Care Provider [phone] Reason for Visit * Reason Comments Follow-up Encounter Details Date Type Department Care Team (Latest Contact Info) Description 11/18/2014 3:30 PM EDT [place] [address] Justin Starkey MD [facility] [place] [address] H/O gastroesophageal reflux (GERD); Diarrhea; Chronic abdominal pain Discharge Disposition: Home Social History Tobacco Use [...] Sign Reading Time Taken Comments Blood Pressure 123/67 11/18/2014 3:01 PM EDT Pulse 86 11/18/2014 3:01 PM EDT Temperature - - Respiratory Rate - - Oxygen Saturation - - Inhaled Oxygen Concentration - - Weight 91.4 kg (201 lb 9.6 oz) 11/18/2014 3:01 PM EDT Weighed with shoes. 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 Her GI issues are that of gas and bloating due to methane overproduction, and IBS with diarrhea. 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 LAST VISIT I last saw her on 05/20/14. At our last visit, she weighed 181 pounds, and we used a number of different medications to try to improve her symptoms. ON REVIEW TODAY On review today, the trial of tetracycline did not help the gas or bloating. She continues to use Lomotil for her diarrhea and IBS-D symptoms, and she varies the dose based on symptoms. She has required less since she is now using a cough syrup with codeine. The trial of Culturelle did not help thegas or bloating. Reflux symptoms are minimal on Dexilant each day. She is not having side effects. She seems to be having more chest discomfort and does not feel like the Bentyl is working quite as well. Anorectal manometry performed after our visit showed a weak EAS muscle with weak squeeze pressures and rapid fatigue. This obviously accounts for some of her episodes of incontinence. Since I last saw her, she has unfortunately gained 20 more pounds and today weighs 201.6 pounds. Her back pain and leg pain are slightly better after her most recent surgery of lumbar diskectomy in August 2014. Unfortunately, due to weather and other issues, she has not been able to get out to physical therapy. She continues with significant breathing problems. This seems worse. She has new lower-extremity edema, and Dr. Cage is working on that and has scheduled an echocardiogram. We had a nice discussion about her GI issues. A treatment plan is outlined below. ALLERGIES/ADR See eD-H; reviewed. MEDICATIONS See eD-H; reviewed. PAST MEDICAL HISTORY 1. COPD. 2. IBS with diarrhea. 3. 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 5. Reflux. 6. Chronic back pain. 7. Anxiety. 8. Depression. PAST SURGICAL HISTORY 1. Emergency hernia repair May 2011, [facility]. 2. Cholecystectomy 11/24/12. 3. Cervical spine fusion surgery August 2013. 4. Lumbar diskectomy 08/2014. HABITS Positive tobacco. No alcohol for four years. FAMILY HISTORY Noncontributory. SOCIAL HISTORY for 10 years, not currently working, applying for disability. One vaginal delivery with episiotomy. RECENT TESTING 1. Colonoscopy, [facility]: normal. 2. Upper endoscopy [facility]: normal. 3. CT scan [facility]: normal. 4. Abdominal ultrasound: gallstones noted. 5. 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 6. Breath hydrogen test 05/13/12: no evidence of bacterial overgrowth; methane overproduction. MEDICATION/DIET TRIALS 1. Neomycin - no help. 2. Rifaximin - some help with gas and bloating on the first trial; no benefit on the second trial. 3. Align x90 days - no help. 4. Low-FODMAP diet - no help. 5. Bentyl - helps esophageal spasms. 6. Lomotil - has helped diarrhea symptoms. 7. Tetracycline - no help with gas and bloating. 8. Culturelle - no help with gas and bloating. 9. Dexilant - helps reflux symptoms. PHYSICAL EXAM Height 5 feet 1 inch. Weight 201.6 pounds. IMPRESSIONS/RECOMMENDATIONS 1. Follow up with PCP for medical and psychological issues. I am quite concerned about her 45-poundweight gain over the last year. 2. Follow up with mechanical specialist as scheduled for her worsening shortness of breath. 3. 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 t.i.d. for 10days. She will call in five weeks. If no help, then the next reasonable trial would be ciprofloxacin. She understands the difficulty in trying to identify the methane-producing bacteria which causes many of her symptoms. 4. For PRO, continue Dexilant at 60 [...] and also help her esophage al pain. 6. Kegel exercises four times daily to help with fecal incontinence. 7. For IBS with diarrhea, continue to use Lomotil. She may use up to two tablets four times daily. 8. No specialized tests have been scheduled. 9. She will call in five weeks. 10. I will see her in followup in six months. TIME SPENT WITH PATIENT I spent 30 minutes with the patient. The entire visit was spent in [id number] counseling and coordination of care. Justin Starkey, PhD, MD dowel maker, [facility] [employer] Section of Gastroenterology and Hepatology [facility] [address] V: [phone] F: [phone] MICKY/kelsey/mian CC/EC: PCP - staff msg copy 11/30/14 documented in this encounter Plan of Treatment Not on file documented as of this encounter Visit Diagnoses Diagnosis H/O gastroesophageal reflux (GERD) Personal history of other diseases of digestive system Diarrhea Chronic abdominal pain Abdominal pain, unspecified site documented in this encounter Care Teams Bobbin Loose End Finder Relationship Specialty Start Date End Date Mary Alice Cage APRN PCP - General 10/12/11 11/12/18 documented as of this encounter
--- OUTSIDE RECORDS SUMMARY | 2024-03-17 18:32 | XMS_ITS | Encounter Summary ---
[place] [address] Care Team Providers Care Electron Beam Welder Setter Name Role Phone ChaffeeMary Alice davis Rajendra ROY Primary Care Provider [phone] Encounter Details Date Type Department Care Team (Late st Contact Info) Description 09/08/2014 Telephone [place] [id number] Lacey Steiner, RN Social History Tobacco Use Types Packs/Day [...] encounter Miscellaneous Notes * Telephone Encounter - Lacey Steiner, RN - 09/09/2014 8:49 AM EST Received call from Poppy requesting a refill of her Oxycodone 5 mg tablets. She reports her leg pain is better. She is taking 1 tablet Q 4 hours along with tylenol for her back pain. She reports hertemp has been around 99-100 and she feels chilled. She states she is always cold and feels as though she might be coming down with a cold. Her looked at her incision and reports it looks good. Denies any drainage or redness. She is moving her bowels and urinating without difficulty. Case was discussed with Dr. Acuna. Script as authorized by Dr. Acuna for Oxycodone 5 mg 1 Q 6 hours PRNpain was mailed to the patients preferred pharmacy. Call was placed to the patient to make her aware of the above. Dose and frequency was reviewed. She was encouraged to spread out the dosing on the #11 tablets she has on hand as once the script leaves the clinic it is out of our control. Poppy verbalized understanding and was in agreement with this plan. documented in this encounter Plan of Treatment Not on file documented as of this encounter Visit Diagnoses Not on filedocumented in this encounter Care Teams Electron Beam Welder Setter Relationship Specialty Start Date End Date Mary Alice Cage APRN PCP - General 10/12/11 11/12/18 documented as of this encounter
--- OUTSIDE RECORDS SUMMARY | 2024-03-17 18:32 | XMS_ITS | Encounter Summary ---
[place] [address] Care Team Providers Care Binder Cutter Name Role Phone Mary Alice Cage MANUELA Primary Care Provider [phone] Reason for Visit * Reason Onset Date Comments Pre Procedure Call 08/17/2014 pre op med ho ld, request for pain medication. Encounter Details Date Type Department Care Team (Late st Contact Info) Description 08/17/2014 Telephone [place] [address] Milvia Fernandez RN Pre Procedure Call ( pre op med hold, request for pain medication.) Social History Tobacco Use Types Packs/Day Years Used Date Smoking Tobacco: Every Day Cigarettes 1 20 Smokeless Tobacco: Never Alcohol [...] Miscellaneous Notes * Telephone Encounter - Chen Valencia RN - 08/17/2014 5:34 PM EST Pt returned called. Advised pt that Tommy had reviewed her information with Dr Acuna and Dr Acuna was deferring any preoperative medication mgmt to her PCP and that Dr Acuna is not planning to perform a fusion. Explained that a discectomy is planned; for 08/31/14; That a fusion surgery was more complicated, had greater risks and a longer recovery; based on her presentation, a discectomy, which is what she's been consented for is what's indicated/planned. Pt verbalized understanding, voicedappreciation of the information. * Telephone Encounter - Milvia Fernandez RN - 08/17/2014 12:08 PM EST Patient stopped by [facility] regarding pain medication, she was seen in her local ED over the past weekend and received a prescription for Percocet 5/325mg, 1 tab Q 4 hours along with 800 mg Ibuprofen. Sheis concerned because she will be holding the Ibuprofen 7-10 before surgery and doesn't feel that the percocet will manage the pain, she also reports she is running low on supply of Percocet. Patient is not taking any aspirin or fish oil, she will hold Ibuprofen as planned. She c/o mostly of right leg pain, some back discomfort described as I can feel my back slipping all the time. She states that she is hoping that Dr. Acuna will do a fusion, she is aware that she is currently scheduled for right L4-5 lateral disc excision, not a fusion. Will review with Dr. Acuna and f/u with patient.She is also on gabapentin prescribed by her PCP, she is taking 300 mg in the AM and 600 mg at HS and is tolerating it well. Above discussed with Dr. Acuna, he defers pre op med management to PCP, he does not plan on lumbar fusion, plan is for disc excision only. Contacted Lety at PCP's office regarding the above, she has reviewed patient's ED visit note and patient has been scheduled with PCP for f/u on 08/19/14. She was informed that Dr. Acuna has declinedto provide pre op narcotic prescription, he will manage post op pain medication. Discussed consideration for increasing gabapentin dose, she will review with patient's PCP. A call was placed to patient to update regarding the above, a message was left requesting return call. documented in this encounter Plan of Treatment Not on file documented as of this encounter Visit Diagnoses Not on filedocumented in this encounter Care Teams Binder Cutter Relationship Specialty Start Date End Date Mary Alice Cage APRN PCP - General 10/12/11 11/12/18 documented as of this encounter
--- OUTSIDE RECORDS SUMMARY | 2024-03-17 18:32 | XMS_ITS | Encounter Summary ---
Author Organization [facility] [address] Care Team Providers Care Vest Baster Name Role Phone CeibaMary Alice davis Rajendra ROY Primary Care Provider [phone] Encounter Details Date Type Department Care Team (Late st Contact Info) Description 02/21/2015 10:26 AM EDT - 02/21/2015 11:59 PM EDT Hospital [place] [phone] Dyspnea Social History Tobacco Use Types Packs/Day [...] Spacing Device Spcr 2 puffs by [facility].(Non-Drug; Combo Route) route daily. promethazine (PHENERGAN) 25 [...] lung Take 10 mg by mouth daily. atenolol (TENORMIN) 25 mg Tablet Take 25 mg by mouth daily. 11/14/2018 sulfamethoxazole-trime thoprim (BACTRIM DS) 800-160 mg TabletIndications:COPD , moderate Take 1 tablet by mouth 2 times daily. 10 tablet 1 02/21/2015 08/11/2015 fluconazole (DIFLUCAN) 100 mg TabletIndications:Thru sh Take 1 tablet by mouth daily. 5 tablet 3 02/21/2015 12/20/2016 fluconazole (DIFLUCAN) 100 mg TabletIndications:Duri ng antibiotic. Take 1 tablet by mouth daily for 10 days. Indications: During antibiotic. 10 tablet 0 12/22/2014 08/17/2015 METRONIDAZOLE (FLAGYL ORAL)Indications:Dyspn ea Take by mouth 3 times daily. 08/11/2015 gabapentin (NEURONTIN) 300 mg Capsule Take 3 [...] as of this encounter Procedure Notes * José Manuel Burns MD - 02/21/2015 5:18 PM EDTAssociated Order(s): PULMONARY FUNCTION TEST Forced vital capacity is reduced. FEV1 is reduced. The ratio is normal. Flow volume loops show someflattening of the curve. Diffusing capacity is reduced. Spirometry suggests some restrictive disease. Suggest lung bombs clinically indicated. In addition flow volume loops suggests some flattening of the curve. Suggest clinical correlation. Diffusing capacity is reduced. This latter finding may be seen in pulmonary vascular disease, interstitial disease, or anemia. documented in this encounter Plan of Treatment Not on file documented as of this encounter Procedures Procedure Name Priority Date/Time Associated Diagnosis Comments COMMON PULMONARY FUNCTION TEST Routine 02/21/2015 5:18 PM EDT Dyspnea documented in this encounter [...] or anemia. Osmany Overton MD PFT ORDERABLES documented in this encounter Visit Diagnoses Diagnosis Dyspnea Other dyspnea and respiratory abnormality documented in this encounter Care Teams Vest Baster Relationship Specialty Start Date End Date Mary Alice Cage APRN PCP - General 10/12/11 11/12/18 documented as of this encounter
--- OUTSIDE RECORDS SUMMARY | 2024-03-17 18:32 | XMS_ITS | Encounter Summary ---
[place] [address] Care Team Providers Care Handy Worker Name Role Phone CandlerMary Alice davis Rajendra ROY Primary Care Provider [phone] Reason for Visit * Reason Onset Date Comments Prior Authorization 04/08/2015 Dexilant Encounter Details Date Type Department Care Team (Late st Contact Info) Description 04/08/2015 Telephone [place] [phone] Renetta Greenfield MA GASTROENTEROLOGY DEPT Prior Authorization (Dexilant) Social History [...] Telephone Encounter - Renetta Greenfield MA - 04/08/2015 11:08 AM EDT Ms. Rust calls to let us know she needs a prior authorization for her Dexilant. Comment that she is feeling poorly. documented in this encounter Plan of Treatment Not on file documented as of this encounter Visit Diagnoses Not on filedocumented in this encounter Care Teams Handy Worker Relationship Specialty Start Date End Date Mary Alice Cage APRN PCP - General 10/12/11 11/12/18 documented as of this encounter
--- OUTSIDE RECORDS SUMMARY | 2024-03-17 18:32 | XMS_ITS | Encounter Summary ---
[place] [address] Care Team Providers Care Carton Filler Name Role Phone Mary Alice Cage MANUELA Primary Care Provider [phone] Encounter Details Date Type Department Care Team (Latest Contact Info) Description 08/31/2014 5:47 AM EST - 08/31/2014 1:25 PM EST Hospital Encounter [place] [id number] Rios Gonzalez MD [facility] [place] [address] Right lumbar radiculopathy (Primary Dx) Discharge Disposition: Home Social History Tobacco Use Types Packs/Day Years Used Date Smoking Tobacco: Every Day Cigarettes 1.5 20 Smokeless Tobacco: Never Tobacco Cessation:Ready to Q uit: Yes; Counseling Given: Yes Comments:pt would like to speak with someone about [...] Sign Reading Time Taken Comments Blood Pressure 120/54 08/31/2014 10:26 AM EST Pulse 88 08/31/2014 12:32 PM EST Temperature 36.9 ??C (98.4 ??F) 08/31/2014 10:[address] Respiratory Rate 18 08/31/2014 10:26 AM EST Oxygen Saturation 95% 08/31/2014 1:22 PM EST Inhaled Oxygen Concentration - - Weight 88.3 kg (194 lb 9.6 oz) 08/31/2014 6:14 A M EST Height 152.4 cm (5') 08/31/2014 6:14 AM EST Body Mass Index 38.01 08/31/2014 6:14 AM EST documented in this encounter Discharge Instructions * Discharge Instructions* Kaia Rivera RN - 08/31/2014 9:39 AM EST PATIENT INSTRUCTIONS POST-ANESTHESIA IMMEDIATELY FOLLOWING SURGERY: Do not drive or operate machinery for the first twenty four hours after surgery. Do not make any important decisions for twenty four hours after surgery or while takingnarcotic pain medications or sedatives. If you develop intractable nausea and vomiting or a severe headache please notify your doctor immediately. FOLLOW-UP: Please make an appointment with your surgeon as instructed. You do not need to follow upwith anesthesia unless specifically instructed to do so. WOUND CARE INSTRUCTIONS (if applicable): Keep a dry clean dressing on the anesthesia/puncture woundsite if there is drainage. Once the wound has quit draining you may leave it open to air. Generallyyou should leave the bandage intact for twenty four hours unless there is drainage. If the epiduralsite drains for more than 36-48 hours please call the anesthesia department. QUESTIONS?: Please feel free to call your physician or the hospital sprayer operator if you have any questions, and they will be happy to assist you. * Patient Instructions* Quinton Puri MD - 08/31/2014 6:50 AM EST Activity: 1. You may perform your daily activities as tolerated but minimize bending at the waist greater than 90 degrees, twisting around your waist, or lifting anything heavier than 5-10 lbs (about a full gallon of water.) 2. In general, guide your activity by [...] them. 3. You should also take an vyrw-bov-tjcuokq stool softener, such as Colace or Senna, to facilitate a bowel movement. Drivin. You [...] clock as directed on the package insert for the next 10 days to help reduce the amount of narcotic medication you need. Do not exceed 4000mg of acetaminophen in 24 hrs. Ibuprofen or Aleve may also be taken with dosages as directed on package inserts. 3. If you need a renewal of your pain medication, please contact the [facility] Prescription Lineat [phone]. PRESCRIPTION RENEWAL REQUESTS CAN TAKE UP TO 3 DAYS TO FILL. YOU WILL BE REQUIRED TO AUTOMATION CONSULTANT YOUR NARCOTIC REFILL PRESCRIPTION IN PERSON AT [facility] OR IT CAN BE MAILED TO YOUR PHARMACY. Wound Care/Shower/Bath: 1. For the first 72 hours after surgery, shower with a clear plastic Tegaderm dressing covering your wound to keep it dry. 2. After 72 hours you may remove the plastic dressing. At this point you may allow water to run over the wound but do not scrub the surrounding skin. Gently pat dry with a clean, dry towel. 3. At this time you may replace the plastic dressing with clean, dry gauze held in place with tape.Any bandage over the wound should be dry at all times and should be replaced if wet. 4. 4 days after surgery the wound can be left uncovered if there is no continued drainage. (You should continue to cover the wound for as long as there is continued drainage, please see the section below on when to call the [facility]ine Center.) 5. Do not soak the incision underwater (ie lakes, pools, hot tubs, bath tubs, etc) for at least four weeks until the incision has completely healed. 6. After the gauze dressing is removed the paper strips (steristrips) should be kept in place. You have absorbable sutures under your skin that do not need to be removed. They are covered by the steri-strips. The steri-strips may begin to fall off, and you may trim them as they peel back. After 14 days you can remove the remaining steri-strips if they have not fallen off already. PLEASE CALL US AT [phone] TO SPEAK WITH A [facility]ENTER NURSE IF YOU EXPERIENCE THE FOLLOWING: ?? Fevers greater than 101.5 degrees Fahrenheit ?? Chills or night sweats ?? Nausea or vomiting ?? Wound Redness or drainage after 5 days ?? New weakness, numbness, or tingling in your hands or feet ?? Incontinence of bowel or bladder ?? Any questions or concerns Important Phone Numbers: Clinical issues, nurse questions: [phone] Medication renewals: [phone]: Kalpana : [phone] Follow Up Appointments: 1. You will have follow-up appointments at [facility] as indicated in the ???Future Appointments and Orders?? section of your discharge summary. If X-rays have been ordered for you prior to this appointment you will need to report to the Radiology department, desk 3T, 1 hour prior to your spine center appointment. Future Appointments Date Time Provider Department Center 09/16/2014 11:00 AM Rios Gonzalez MD [facility] 10/04/2014 11:40 AM Rios Gonzalez MD [facility] 11/30/2014 8:30 AM Echo Regular NI Card None 11/30/2014 9:30 AM Pulmonary Function Test, Pft PFT None 11/30/2014 10:15 AM Osmany Holloway MD [facility] 11/30/2014 11:00 AM Justin Starkey MD [facility] documented in this encounter Medications at Time [...] Inhalational Spacing Device Spcr 2 puffs by [facility].(Non-Drug; Combo Route) route [...] daily. oxyCODONE (ROXICODONE) 5 mg Tablet Take 1-2 tablets by mouth every 4 hours as needed for Pain. 75 tablet 0 08/31/2014 09/09/2014 spironolactone (ALDACTONE) 25 mg Tablet Take 25 [...] as of this encounter Progress Notes * Kaia Rivera RN - 08/31/2014 12:33 PM EST Patient up OOB with 2 assist to the bathroom and voided a small amt. Bladder scan showed pt still had 495 cc in her bladder post void. Walked in the hallway with 2 assist. I gave patient an incentivespirometer and she was able to keep her O2 sat at 95 percent. She is using it often here and encouraged to use at home 2-4 days postop. Patient states her pain is a now a 6.5 and it was a 10 she saidwhen she came in for surgery this AM. Patient will have to void again before discharge. Instructions for d/c home gone over with patien, pts. Mom and . Kaia Rivera RN documented in this encounter H&P Notes * Rios Gonzalez MD - 08/31/2014 5:47 AM EST 24-Hour Pre-Operative H&P Update Poppy Mclaughlin [id number] Patient seen in pre-op holding area today. There are no clinically significant changes to the patient's oziel since the original H&P, dated 08/20/2014, which has been completed by the PCP. She continues to endorse pain and paresthesias/dysesthias originating in her lower back and radiating down the anterolateral aspect of the thigh, and anteromedial aspect of the lower leg, and dorsum of the foot. Please see Dr. Gonzalez's note for details regarding the exam. The patient is ready to proceed with the planned surgical procedure today. Surgical consent form reviewed and all questions sought and answered. Quinton Puri MD Orthopaedic Surgery Sp[facility] Attending I have seen and examined the patient and agree with the resident's findings and plan. Pt cont to have severe LBP radiating to RLE in L4 distribution. On exam, has 4/5 strength R ADF and EHL and numbness on medial leg, ankle, and foot. Will proceed with surgery as planned (R L4-5 far lateral diskectomy). Pt understands that goal of surgery is to treat radicular pain and that chronic LBP will likely persist. documented in this encounter Miscellaneous Notes * Op Note - Rios Gonzalez MD - 08/31/2014 10:00 AM EST [facility] Operative Note Patient Name: Poppy Mclaughlin : [id number] MR#: [id number] Case Date: 08/31/2014 Surgeon: Surgeon(s) and Role: * Rios Gonzalez MD - Primary * Quinton Puri MD - Resident PREOPERATIVE DIAGNOSIS: Right L4-L5 far lateral disk herniation. POSTOPERATIVE DIAGNOSIS: Right L4-L5 far lateral disk herniation. PROCEDURE: Right L4-L5 far lateral diskectomy by Silvano (transpedicular) approach. ANESTHESIA: General. OPERATIVE FINDINGS: There was a large far lateral disk protrusion at L4-L5 compressing the exiting L4 root, which was red and inflamed. At the conclusion of the case, the right L4 root was fully decompressed in the foramen and in the far lateral space. INDICATION FOR PROCEDURE: Ms. Mclaughlin is a 53-year-old female with chronic low back pain who developed a right L4 radiculopathy in the setting of a right L4-L5 far lateral disk herniation. She failed to improve despite extensive nonoperative treatment and elected to undergo surgery after a full discussion of the potential risks and benefits thereof. DESCRIPTION OF PROCEDURE: The patient was taken to the operating room and general anesthesia was administered. She was positioned prone on the Long spine table with all bony prominences well padded and her legs in the sling. The C-arm was used to localize the incision. A time-out was performed to identify the patient and the planned procedure. She received preoperative antibiotics. The back was prepped with Hibiclens and DuraPrep and draped in the usual sterile fashion. The area of the planned incision was injected with 20% of 0.25% Marcaine with epinephrine. A longitudinal paramedian incision was made about 2 cm to the right of the midline overlying the L4-L5 level. The electrocautery was used to dissect down to the level of the fascia, which was split in line with the incision. The plane between the multifidus and longissimus was developed bluntly. The Gabriel retractor was placed to expose the L4 and L5 transverse processes as well as the L4 pars. These structures were exposed subperiosteally. A Amy was placed on the right L4 transverse process, and an intraoperative fluoroscopy shot confirmed our location. The intertransverse membrane was elevated from the caudal edge of the L4 transverse process and removed with a Kerrison. The L4 pedicle was palpated with the [place], and we identified the L4-L5 foramen. The exiting L4 root was dissected free from the surrounding soft tissue and mobilized. Hemostasis was achieved using the bipolar and FloSeal. The nerve was mobilized cranially, and this revealed the disk protrusion. While retracting the L4 root cranially, a slit annulotomy was created, and protruding material emerged. The pituitary was used to remove all free fragments of disk. We did not enter deep within the disk space to remove any well-fixed material. Following diskectomy, the Hassan ball-tipped probe could be swept ventral to the root up to the level of the L4 pedicle, swept medial through the foramen along the ventral aspect of the canal to the L5 pedicle without obstruction, indicating that all free disk material had been removed. Satisfied with our decompression, hemostasis was achieved. 40 mg of Depo-Medrol was dripped over the red, inflamed L4 root. The fascia was closed using interrupted #1 Vicryl. The subcutaneous tissue was closed using interrupted 2-0 Vicryl. The skin was closed using a 4-0 Monocryl in a running, subcuticular fashion. The incision was injected with 20 mL of 0.25% Marcaine. The wound was dressed with Mastisol, Steri-Strips, sterile gauze, and Tegaderm. The patient was put back to the hospital bed and awakened from general anesthesia. She was taken to the recovery room in stable condition. There were no obvious complications. Attestation: Case Date: 08/31/2014 I was present and I participated during the entire procedure (does not need to include opening and closing). RIOS GONZALEZ MD 08/31/2014 * Brief Op Note - Rios Gonzalez MD - 08/31/2014 9:58 AM EST Brief Operative Note Patient Name: Poppy Mclaughlin : [id number] MR#: [id number] Case Date: 08/31/2014 Surgeon: Surgeon(s) and Role: * Rios Gonzalez MD - Primary * Quinton Puri MD Preoperative diagnosis: L4-5 far lateral hnp Postoperative diagnosis: L4-5 far lateral hnp Procedure(s): Right L4-5 far lateral diskectomy via Silvano (transpedicular) approach (02302) Anesthesia: General Findings: There was a far lateral disk protrusion on the right at L4-5 compressing the exiting L4 root, which was red and inflamed. At the conclusion of the case, the L4 root was fully decompressed in the foramen and far lateral space. No CSF. Complications: None Fluids: 1200 Estimated Blood Loss: 30 mL Urine: 0 Drains: None Disposition: awakened from anesthesia, extubated and taken to the recovery room in a stable condition, having suffered no apparent untoward event. Condition: doing well without problems Attestation: Case Date: 08/31/2014 I was present and I participated during the entire procedure (does not need to include opening and closing). (Please see the Surgical Encounter Summary for any Implant and Specimen details pertinent to this patient.) documented in this encounter Plan of Treatment Pending Results Name Type Priority Associated Diagnoses Date /Time XR Fluoro OR c-arm storage only Imaging Routine 08/31/2014 8:43 AM EST Scheduled Orders Name Type Priority Associated Diagnoses Orde r Schedule XR Fluoro OR c-arm storage only Imaging Routine Once PRN (for Ra diant use) for 1 Occurrences starting 08/31/2014 until 08/31/2014 documented as of this encounter Procedures Procedure Name Priority Date/Time Associated Diagnosis Comments MODIFIER L5 08/31/2014 7:34 AM EST Radiculopathy of lumbar region MODIFIER L4 08/31/2014 7:34 AM EST Radiculopathy of lumbar region TRANSPEDICULAR LUMBAR DECOMPRESSION SPINAL CORD,EQUINA & NERVE ROOTS, ONE LVL. (WRVU 21.86) 08/31/2014 7:34 AM EST Radiculopathy of lumbar region documented in this encounter Visit Diagnoses Diagnosis Right lumbar radiculopathy- Primary Thoracic or lumbosacral neuritis or radiculitis, unspecified documented in this encounter Administered Medications Inactive Administered Medications - up to 3 most recent administrations Medication Order MAR Action Action Date Dose Rate Site fentaNYL (PF) 50 mcg/mL 2mL syringe 25 mcg, Intravenous, EVERY 5 MIN PRN, Pain, for breakthrough pain, Starting on Tu08/31/14 at 0937, Until 08/31/14 at 1304, Hold for respiratory rate less than 10 per minute. Maximum dose: 250 mcg over one hour., PACU Recovery Given 08/31/2014 10:26 AM EST 25 mcg Given 08/31/2014 10:21 AM EST 25 mcg Given 08/31/2014 10:00 AM EST 25 mcg oxyCODONE (ROXICODONE) immediate release tablet 5 mg 5 mg, Oral, EVERY 4 HOURS PRN, Starting on e 08/31/14 at 1006, Until Tu08/31/14 at 1548, Pain, mild pain (1-3), May give additional 5 mg in 30 minutes once if pain not relieved., Routine Given 08/31/2014 1:00 PM EST 5 mg documented in this encounter Active and Recently Administered Medications Times are shown in EST. PRN Medication Order 08/29/2014 08/30/2014 08/31/2014 bacitracin injection (CANCELED) ONCE PRN, Starting on 08/31/14 at 0859, Until 08/31/14 at 1304, Intra-Operative (Intra-Procedure), Routine 0859 (Given - Provid er: Rios Gonzalez MD - Comment: Mixed with 1 L of normal saline.) BUpivacaine (PF) (MARCAINE) 0.25 % (2.5 mg/mL) injection (CANCELED) ONCE PRN, Starting on 08/31/14 at 0943, Until 08/31/14 at 1304, Intra-Operative (Intra-Procedure), Routine 0943 (Given - Provid er: Rios Gonzalez MD - Comment: 20 ml total) BUpivacaine-EPINEPHrine 0.25 %-1:200,000 injection (CANCELED) ONCE PRN, Starting on 08/31/14 at 0820, Until 08/31/14 at 1304, Intra-Operative (Intra-Procedure), Routine 08 (Given - Provid er: Rios Gonzalez MD) fentaNYL (PF) 50 mcg/mL 2mL syringe (CANCELED) 25 mcg, Intravenous, EVERY 5 MIN PRN, Pain, for breakthrough pain, Starting on e 08/31/14 at 0937, Until 08/31/14 at 1304, Hold for respiratory rate less than 10 per minute. Maximum dose: 250 mcg over one hour., PACU Recovery 1000 (Given - Provid er: Kaia Rivera RN)1021 (Given - Provider: Kaia Rivera RN)1026 (Given - Provider: Kaia Rivera RN) gelatin adsorbable 100 (GELFOAM) sponge (CANCELED) ONCE PRN, Starting on 08/31/14 at 0925, Until 08/31/14 at 1304, Intra-Operative (Intra-Procedure), Routine 09 (Given - Provid er: Rios Gonzalez MD - Comment: Soaked in thrombin) methylPREDNISolone acetate (depo-MEDROL) injection (CANCELED) ONCE PRN, Starting on 08/31/14 at 0921, Until 08/31/14 at 1304, Intra-Operative (Intra-Procedure), Routine 0921 (Given - Provid er: Rios Gonzalez MD - Comment: used topically on dura at end of case) oxyCODONE (ROXICODONE) immediate release tablet 5 mg (CANCELED)(Linked Group 1) 5 mg, Oral, EVERY 4 HOURS PRN, Starting on 08/31/15 at 1006, Until Tue 1/15 at 1548, Pain, mild pain (1-3), May give additional 5 mg in 30 minutes once if pain not relieved., Routine 1300 (Given - Provid er: Kaia Rivera RN) thrombin (Bovine) (THROMBINAR) kit (CANCELED) ONCE PRN, Starting on 08/31/14 at 0924, Until Tue 15 at 1304, Intra-Operative (Intra-Procedure) 0924 (Given - Provid er: Rios Gonzalez MD - Comment: Soaked using gelfoam patties.)0925 (Given - Provider: Rios Gonzalez MD - Comment: Soaked using gelfoam patties.) Linked Groups Order Group 1: oxyCODONE (ROXICODONE) immediate release tablet 5 mg (CANCELED)Jump to med 5 mg, Oral, EVERY 4 HOURS PRN, Starting on 08/31/15 at 1006, Until Tue 1/15 at 1548, Pain, mild pain (1-3), May give additional 5 mg in 30 minutes once if pain not relieved., Routine Or oxyCODONE (ROXICODONE) immediate release tablet 10 mg (CANCELED) 10 mg, Oral, EVERY 4 HOURS PRN, Starting on 08/31/15 at 1006, Until Tue 1/15 at 1548, Pain, moderate pain (4-6), May give additional 5 mg in 30 minutes once if pain not relieved., Routine Or oxyCODONE (ROXICODONE) immediate release tablet 15 mg (CANCELED) 15 mg, Oral, EVERY 4 HOURS PRN, Starting on Tue 1/15 at 1006, Until 1/20/15 at 1548, Pain, severe pain or opiate tolerant patient (7-10), Do not start patient with 15 mg dose. Do not give 15 mg if patient is opiate niave., Routine documented in this encounter Care Teams Carton Filler Relationship Specialty Start Date End Date Mary Alice Cage APRN PCP - General 10/12/11 11/12/18 documented as of this encounter
--- OUTSIDE RECORDS SUMMARY | 2024-03-17 18:32 | XMS_ITS | Encounter Summary ---
[place] [address] Care Team Providers Care Core Assembly Supervisor Name Role Phone PauldingMary Alice davis Rajendra ROY Primary Care Provider [phone] Encounter Details Date Type Department Care Team (Late st Contact Info) Description 02/21/2015 9:40 AM EDT - 02/21/2015 10:25 AM EDT Hospital [place] [address] CLINIC, DR MATEUSZ Walker Social History Tobacco Use Types Packs/Day Years [...] lung Take 10 mg by mouth daily. fluconazole (DIFLUCAN) 100 mg TabletIndications:Duri ng antibiotic. [...] Procedure Name Priority Date/Time Associated Diagnosis Comments CT CHEST WO CONTRAST (GENERIC) Routine 02/21/2015 10:19 AM EDT Dyspnea documented in this encounter Results * CT chest WO contrast (02/21/2015 10:19 [...] abnormality documented in this encounter Care Teams Core Assembly Supervisor Relationship Specialty Start Date End Date Mary Alice Cage APRN PCP - General 10/12/11 11/12/18 documented as of this encounter
--- OUTSIDE RECORDS SUMMARY | 2024-03-17 18:32 | XMS_ITS | Encounter Summary ---
[place] [address] Care Team Providers Care Diesel Maintenance Technician Name Role Phone LagrangeMary Alice davis Rajendar ROY Primary Care Provider [phone] Encounter Details Date Type Department Care Team (Late st Contact Info) Description 08/17/2014 10:20 AM EST Clinical [place] [id number] Social History Tobacco Use Types Packs/Day Years [...] Taken Comments Blood Pressure - - Pulse 114 08/17/2014 9:49 AM EST Temperature - - Respiratory Rate - - Oxygen Saturation 99% 08/17/2014 9:49 AM EST Inhaled Oxygen Concentration - - Weight 89.4 kg (197 lb) 08/17/2014 9:49 AM EST Height 154.9 cm (5' 0.98) 08/17/2014 9:49 AM ES T Body Mass Index 37.24 08/17/2014 9:49 AM EST documented in this encounter Progress Notes * Julita Mejia RN - 08/17/2014 10:14 AM EST PAT questionnaire reviewed with patient while in Pre Admission testing. Pt has tolerated anesthesiain the past without difficulty. Pt denies motion sickness. Pre-operative instruction booklet reviewed. Patient verbalizes a good understanding of all information reviewed. Pt has received hibiclens soap and instructions for use. Pt reports trip to ED for severe back pain on Aug 14. PLAN: Testing: Blood work Special medication instructions: Procedure date: 08/31/14 documented in this encounter Plan of Treatment Not on file documented as of this encounter Visit Diagnoses Not on filedocumented in this encounter Care Teams Diesel Maintenance Technician Relationship Specialty Start Date End Date Mary Alice Cage APRN PCP - General 10/12/11 11/12/18 documented as of this encounter
--- OUTSIDE RECORDS SUMMARY | 2024-03-17 18:32 | XMS_ITS | Encounter Summary ---
Author Organization [facility] Address [facility] [place] [address] Care Team Providers Care Management Supervisor Name Role Phone Mary Alice Cage APRN Primary Care Provider [phone] Encounter Details Date Type Department Care Team (Latest Contact Info) Description 09/16/2014 10:05 AM [facility] Hospital Encounter XRay at [address] [place] [address] Herniated nucleus pulposus, C6-7 Right, S/P C5-7 ACDF 09/08/13 Social History Tobacco Use Types Packs/Day Years [...] Inhalational Spacing Device Spcr 2 puffs by [facility] [place].(Non-Drug; Combo Route) route daily. promethazine [...] lung Take 10 mg by mouth daily. spironolactone (ALDACTONE) 25 mg Tablet Take 25 [...] Name Priority Date/Time Associated Diagnosis Comments XR CERVICAL SPINE FLEXION EXTENSION ONLY Routine 09/16/2014 10:29 AM EST Herniated nucleus pulposus, C6-7 Right, S/P C5-7 ACDF 09/08/13 documented in this encounter Results * XR cervical spine flexion extension ONLY (09/16/2014 10:29 AM EST) Anatomical Region Laterality Modality C-spine N/A Radiographic Martha ging 09/16/2014 10:2 9 AM EST Impressions 09/16/2014 10:44 AM EST IMPRESSION: No interval change. Narrative 09/16/2014 10:44 AM EST EXAMINATION: C Spine Flexion Extension Only CLINICAL HISTORY: s/p acdf TECHNIQUE: Lateral flexion-extension cervical spine COMPARISON: 03/15/2014 FINDINGS: There is no interval change, specifically in the alignment of the cervical spine and the position and integrity of the anterior fusion device spanning C5-C7. Again noted is approximately 2 mm of retrolisthesis of C3 on 4 on the extension view thought to be degenerative in nature. Procedure Note Maik Villatoro MD - 09/16/2014 EXAMINATION: C Spine Flexion Extension Only CLINICAL HISTORY: s/p acdf TECHNIQUE: Lateral flexion-extension cervical spine COMPARISON: 03/15/2014 FINDINGS: There is no interval change, specifically in the alignment of the cervicalspine and the position and integrity of the anterior fusion device spanningC5-C7. Again noted is approximately 2 mm of retrolisthesis of C3 on 4 on theextension view thought to be degenerative in nature. IMPRESSION IMPRESSION: No interval change. Rios Acuna MD IMG DX ORDERABLES documented in this encounter Visit Diagnoses Diagnosis Herniated nucleus pulposus, C6-7 Right, S/P C5-7 ACDF 09/08/13 Displacement of cervical intervertebral disc without myelopathy documented in this encounter Care Teams Management Supervisor Relationship Specialty Start Date End Date Mary Alice Cage APRN PCP - General 10/12/11 11/12/18 documented as of this encounter
--- OUTSIDE RECORDS SUMMARY | 2024-03-17 18:32 | XMS_ITS | Encounter Summary ---
[place] [address] Care Team Providers Care Nuclear Medicine Physician Name Role Phone Mary Alice Cage MANUELA Primary Care Provider [phone] Reason for Visit * Reason Onset Date Comments Other 03/24/2015 letter from kamron ROA Encounter Details Date Type Department Care Team (Late st Contact Info) Description 03/24/2015 Telephone [place] [address] Chen Valencia, RN Other (letter from analilia ROA) Social History Tobacco Use Types Packs/Day Years [...] Telephone Encounter - Chen Valencia RN - 03/24/2015 11:24 AM EDT Letter dated Mar 22, 2015 from Law Office of [employer]erm[employer] Clancy was reviewed today 03/24/15 seeking the completion of 2 questionnairs by Apr 25 for pt's upcoming social security disability hearing. Call placed to the office of [employer]per[employer] Clancy; left message acknowledging the receipt of the letter; advised in the message that Dr Corbett has not seen pt since September of 2014 in FU to her lumbar Discectomy; Explained that Dr corbett does not perform social security disability determinations or impairment ratings; That this is typically performed by a pt's PCP. In message informed senior trial attorney that if an opinion of a specialist was being sought; they could request an eval by an occupational medicine provider who perform such evals as a specialty. Informed senior trial attorney that the questionnaires wouldbe recycled. [facility] [place] is available through [facility]- Medical Records, Release of Information by request. Call placed to pt; left message requesting return call. Upon return call will advise pt that the service requested by her senior trial attorney is not one that the spine surgeon performs; that we have directed her senior trial attorney to direct his inquiry to her PCP. 11:38 Pt returned call; informed pt of above; pt indicated that the request had already been sent to her PCP for completion. documented in this encounter Plan of Treatment Not on file documented as of this encounter Visit Diagnoses Not on filedocumented in this encounter Care Teams Nuclear Medicine Physician Relationship Specialty Start Date End Date Mary Alice Cage APRN PCP - General 10/12/11 11/12/18 documented as of this encounter
--- OUTSIDE RECORDS SUMMARY | 2024-03-17 18:32 | XMS_ITS | Encounter Summary ---
[place] [address] Care Team Providers Care Correctional Officer Chief Name Role Phone NilesMary Alice Rajendra ROY Primary Care Provider [phone] Encounter Details Date Type Department Care Team (Late st Contact Info) Description 11/30/2014 8:30 AM EDT - 11/30/2014 9:21 AM EDT Hospital Encounter [place] [address] Edema; Dyspnea Social History Tobacco Use Types Packs/Day [...] Inhalational Spacing Device Spcr 2 puffs by [facility] [place].(Non-Drug; Combo Route) route [...] daily. gabapentin (NEURONTIN) 300 mg Capsule Take 3 [...] Procedure Name Priority Date/Time Associated Diagnosis Comments ECHOCARDIOGRAM TRANSTHORACIC Routine 11/30/2014 9:09 AM EDT Edema Dyspnea documented in this encounter Results * Echocardiogram Transthoracic(Leb) (11/30/2014 9:09 AM EDT) EF 65 HEARTLAB SYSTEM Anatomical Region Laterality Modality Other 11/30/2014 Narrative 11/30/2014 9:41 AM EDT Procedure: ? Transthoracic Echocardiogram Patient: ? ODETTE SOTELO Maria Eugenia ?(Age): 1960(54) Med Rec#: ?[id number] ? Sex: ?F ? [place] [place] Ht / Wt: ??154(cm)/91(kg) Pt. Loc: ? Echo Lab ? BSA: ?1.97 Study Date: ?11/30/2014 ? Pt. Type: Outpatient Tape: ? Referring: Osmany Holloway [employer]: Andriy Garland Diagnosis:CPT Code(s): ??Echo Full (03036), ??Spectral Doppler (30973), Color Doppler (18307), Indication(s): ??Edema Rhythm: Sinus HR ?BP ?150/88 ?? SUMMARY: 1. Left ventricular chamber size, wall thickness, global and segmental systolic function are within normal limits. Ejection fraction is estimated to be 65%. ??Doppler assessment and left atrial dilatation suggest elevated left sided filling pressure. 2. Right ventricular chamber size, wall thickness, and systolic function are within normal limits. ??The estimated pulmonary artery systolic pressure is mildly elevated to 39 mmHg. 3. There is no hemodynamically significant valve disease. 4. See remainder of report for additional findings. FINDINGS: Study Quality ?Adequate Left Ventricle ?Left ventricular chamber size, wall thickness, global and segmental systolic function are within normal limits. Ejection fraction is estimated to be 65%. ?There are no left ventricular segmental wall motion abnormalities. ?Doppler assessment is consistent with elevated left sided filling pressure. Left Atrium ?The left atrium is mildly dilated.36 ml/m2 Right Ventricle ?Right ventricular chamber size, wall thickness, and systolic function are within normal limits. ?The estimated pulmonary artery systolic pressure is 39 mmHg. Right Atrium ?The right atrium is normal in size. Aortic Valve ?The aortic valve is trileaflet. The leaflets are thin with normal excursion. There is no aortic stenosis or regurgitation present. Mitral Valve ?The mitral valve appears normal in structure and function. ?There is mild (1+/4+) mitral regurgitation present. Tricuspid Valve ?The tricuspid valve appears normal in structure and function. ?There is mild (1+/4+) tricuspid regurgitation present. Pulmonic Valve ?The pulmonic valve appears normal in structure and function. Pericardium ?The pericardium appears normal and there is no evidence of a pericardial effusion. Aorta ?The aortic root is normal in size. ?There is mild dilatation of the ascending aorta. ?The ascending aorta dimension is 3.6 cm. Pulmonary Artery ?The main pulmonary artery appears normal. Venous ?The inferior vena cava appears normal in size. ?There is a greater than 50% respiratory change in the inferior vena cava dimension. Misc ?There is no hemodynamically significant valve disease. ?See remainder of report for additional findings. ?Two-dimensional echo, spectral Doppler and color Doppler performed. Wall Motion: Segment Name ?Rest ? Base-Anteroseptal ?? Normal ? Base-Anterior ? Normal ? Base-Anterolateral ??Normal ? Base-Posterolateral Normal ? Base-Inferior ? Normal ? Base-Inferoseptal ?? Normal ? Mid-Anteroseptal ?Normal ? Mid-Anterior ?Normal ? Mid-Anterolateral ?? Normal ? Mid-Posterolateral ??Normal ? Mid-Inferior ?Normal ? Mid-Inferoseptal ?Normal ? [place]-Septal ? Normal ? [place]-Anterior ? Normal ? [place]-Lateral ?Normal ? [place]-Inferior ? Normal ? [place]-Tip ?Normal ? Chambers ?Value ?Units (Range) ? LV EF Est ? 65 ? % (55 to 80) ? IVSd 2D ? 0.8 ?cm ? LVIDd 2D ?5.1 ?cm ? PWd 2D ?1 ?cm ? LVIDs 2D ?3 ?cm ? LVFS 2D ? 41 ? % ? LA area ? 19 ? cm2 (<21) ? RA area ? 17 ? cm2 (<18) ? Ao root ? 3.3 ?cm (2.1 to 3.6) ? Asc Ao ?3.6 ?cm (2 to 3.5) ? Mitral Valve ?Value ?Units (Range) ? E peak ?0.97 ? m/sec ? E/A ratio ? 1.3 ?ratio ? MVDT ?192 ?msec ? E1 ?0.08 ? m/sec ? E/E1 ?12 ? ratio ? Tricuspid/Pulmonic Valves ?Value ?Units (Range) ? TR peak ilsa ? 3 ?m/sec ? RAP ? 3 ?mmHg ? RVSP/PASP ? 39 ? mmHg ? This report has been electronically signed by: Vinicio Skelton. ? 11/30/2014 09:40:46 Images reviewed and interpretation verified [facility] Cardiac Ultrasound Laboratory Procedure Note Vinicio Skelton MD - 11/30/2014 Procedure: Transthoracic Echocardiogram Patient: ODETTE Del Cid DOB(Age): 1960(54) Med Rec#: [id number] Sex: F [place] [facility] [place] Ht / Wt: 154(cm)/91(kg) Pt. Loc: Echo Lab BSA: 1.97 Study Date: 11/30/2014 Pt. Type: Outpatient Tape: Referring: Osmany Holloway [employer]: Andriy Garland Diagnosis:CPT Code(s): Echo Full (69780), Spectral Doppler (82921), Color Doppler (70989), Indication(s): Edema Rhythm: Sinus HR BP 150/88 SUMMARY: 1. Left ventricular chamber size, wall thickness, global and segmental systolic function are within normal limits. Ejection fraction is estimated to be 65%. Doppler assessment and left atrial dilatation suggest elevated left sided filling pressure. 2. Right ventricular chamber size, wall thickness, and systolic function are within normal limits. The estimated pulmonary artery systolic pressure is mildly elevated to 39 mmHg. 3. There is no hemodynamically significant valve disease. 4. See remainder of report for additional findings. FINDINGS: Study Quality Adequate Left Ventricle Left ventricular chamber size, wall thickness, global and segmental systolic function are within normal limits. Ejection fraction is estimated to be 65%. There are no left ventricular segmental wall motion abnormalities. Doppler assessment is consistent with elevated left sided filling pressure. Left Atrium The left atrium is mildly dilated.36 ml/m2 Right Ventricle Right ventricular chamber size, wall thickness, and systolic function are within normal limits. The estimated pulmonary artery systolic pressure is 39 mmHg. Right Atrium The right atrium is normal in size. Aortic Valve The aortic valve is trileaflet. The leaflets are thin with normal excursion. There is no aortic stenosis or regurgitation present. Mitral Valve The mitral valve appears normal in structure and function. There is mild (1+/4+) mitral regurgitation present. Tricuspid Valve The tricuspid valve appears normal in structure and function. There is mild (1+/4+) tricuspid regurgitation present. Pulmonic Valve The pulmonic valve appears normal in structure and function. Pericardium The pericardium appears normal and there is no evidence of a pericardial effusion. Aorta The aortic root is normal in size. There is mild dilatation of the ascending aorta. The ascending aorta dimension is 3.6 cm. Pulmonary Artery The main pulmonary artery appears normal. Venous The inferior vena cava appears normal in size. There is a greater than 50% respiratory change in the inferior vena cava dimension. Misc There is no hemodynamically significant valve disease. See remainder of report for additional findings. Two-dimensional echo, spectral Doppler and color Doppler performed. Wall Motion: Segment Name Rest Base-Anteroseptal Normal Base-Anterior Normal Base-Anterolateral Normal Base-Posterolateral Normal Base-Inferior Normal Base-Inferoseptal Normal Mid-Anteroseptal Normal Mid-Anterior Normal Mid-Anterolateral Normal Mid-Posterolateral Normal Mid-Inferior Normal Mid-Inferoseptal Normal [place]-Septal Normal [place]-Anterior Normal [place]-Lateral Normal [place]-Inferior Normal [place]-Tip Normal Chambers Value Units (Range) LV EF Est 65 % (55 to 80) IVSd 2D 0.8 cm LVIDd 2D 5.1 cm PWd 2D 1 cm LVIDs 2D 3 cm LVFS 2D 41 % LA area 19 cm2 (<21) RA area 17 cm2 (<18) Ao root 3.3 cm (2.1 to 3.6) Asc Ao 3.6 cm (2 to 3.5) Mitral Valve Value Units (Range) E peak 0.97 m/sec E/A ratio 1.3 ratio MVDT 192 msec E1 0.08 m/sec E/E1 12 ratio Tricuspid/Pulmonic Valves Value Units (Range) TR peak ilsa 3 m/sec RAP 3 mmHg RVSP/PASP 39 mmHg This report has been electronically signed by: Vinicio Skelton 11/30/2014 09:40:46 Images reviewed and interpretation verified [facility] Cardiac Ultrasound [facility] Osmany Overton MD ECHO ORDERABLES documented in this encounter Visit Diagnoses Diagnosis Edema Dyspnea Other dyspnea and respiratory abnormality documented in this encounter Care Teams Correctional Officer Chief Relationship Specialty Start Date End Date Mary Alice Cage, MANUELA PCP - General 10/12/11 11/12/18 documented as of this encounter
--- OUTSIDE RECORDS SUMMARY | 2024-03-17 18:32 | XMS_ITS | Encounter Summary ---
Author Organization [facility] [place] [address] Care Team Providers Care Application Infrastructure Engineer Name Role Phone Mary Alice Cage MANUELA Primary Care Provider [phone] Encounter Details Date Type Department Care Team (Late st Contact Info) Description 08/31/2014 7:35 AM EST Anesthesia Event [place] [address] Omar Donohue MD [facility] DR [place] [address] Anesthesia Record Procedure Summary Procedure Name Responsible Anesthesiologist Anesthesia Start Time Anesthesia Stop Time TRANSPEDICULAR LUMBAR DECOMPRESSION SPINAL CORD,EQUINA & NERVE ROOTS, ONE LVL. (WRVU 21.86) (Right: Back) Omar Donohue MD 08/31/14 0735 08/31/14 1009 Events Date Time Event Comment 08/31/2014 0721 0735 AN Verify 0735 Start 0735 An Start Data 0742 An Induction 0744 An Intubation 0804 Anesthesia Ready 0822 Procedure Start 0838 Break/Relief In KIM ROMANO CRNA 0852 Break/Relief Out 0953 Extubation/LMA Out 0953 an stop data 1009 Stop Meds Name Total Midazolam 2 mg fentaNYL 250 mcg IV Lidocaine 20 mg Propofol 170 mg Rocuronium 50 mg PHENYLephrine 160 mcg Ondansetron 4 mg Dexamethasone 8 mg Neostigmine 2 mg Glycopyrrolate 0.4 mg ceFAZolin 2 g Ketorolac 15 mg HYDROmorphone 1.6 mg Lidocaine 0.5% 20 mL Albuterol Inhaler 4 puff Lactated Ringers 1,200 mL * Agents Name O2 Air Sevoflurane (et) Desflurane (et) * Blood No blood administrations on file. Lines, Drains, and Airways Type Details Placement Removal Incision 11/04/12; 1412; abdo men; LDA not present upon assessment (healed); 07/12/21; 0157 11/04/12 1412 by Jesus Fritz RN 07/12/21 0157 by Shobha Padilla RN Incision 09/08/13; 1156; cerv ical spine; LDA not present upon assessment (healed); 07/12/21; 0157 09/08/13 1156 by Sanaz Briscoe RN 07/12/21 0157 by Shobha Padilla RN Incision 08/31/14; lumbar spi ne; L4 L5 ; LDA not present upon assessment (healed); 07/12/21; 0158 08/31/14 0000 by Yana Yuen RN 07/12/21 0158 by Shobha Padilla, KAMLA (RETIRED) Peripheral IV Line - Single Lumen 08/31/14; 0658; median vein left (underside of arm); [id number] catheter system; 20 gauge; Kaia Rivera RN; intradermal injection; 2; metacarpal vein (top of hand), left, metacarpal vein (top of hand), right; 08/31/14; 1304 08/31/14 0658 by Kaia Rivera RN 08/31/14 1304 by Kaia Rivera RN ETT Mask Ventilation: Ea sy (1); ETT Type: Cuffed, Oral; ETT Size: 7 mm; Mac Blade: 3; Attempts: 1; Laryngoscopy Grade: 1; ETT Placement Verified By: Auscultation, Capnometry, Visual; Secured at Teeth: 23 cm; Inserted by: Yamileth Velarde CRNA; Removal Date: 08/31/14; Removal Time: 0908/31/14 0744 by Puneet Velarde, HUMAN SERVICES CASE MANAGER 08/31/14 0953 by Puneet Vlearde CRNA documented in this encounter Social History Tobacco [...] OR Notes * Anesthesia Postprocedure Evaluation - Omar Donohue MD - 08/31/2014 11:59 AM EST Patient: Poppy Mclaughlin Procedure(s) Performed: Procedure(s): TRANSPEDICULAR LUMBAR DECOMPRESSION SPINAL CORD,EQUINA & NERVE ROOTS, ONE LVL. MODIFIER L4 MODIFIER L5 Actual Anesthetic: general Patient location: PACU Post-op pain: Claims to have 10/10 pain, but when unstimulated, she falls to sleep Post-op nausea: no nausea or vomiting Last Vitals: Filed Vitals: 08/31/14 1128 BP: Pulse: 92 Temp: Resp: Post-op cardiovascular and respiratory status: is stable Level of consciousness: awake and oriented Complications: no apparent complications and tolerated the procedure well Fluid Status: normal * Anesthesia Preprocedure Evaluation - Omar Donohue MD - 08/30/2014 5:18 PM EST Pre-Anesthesia Evaluation for: Poppy Mclaughlin a 53 y.o. female. Procedure(s): TRANSPEDICULAR LUMBAR DECOMPRESSION L4-L5 RIGHT Patient Active Problem List Diagnosis ??? Edema ??? Trochanteric bursitis ??? Radiculopathy [...] ??? Allergy liquid abuterol, egg sensitivity ??? Hypertensive disease they have said my bp is running high ??? Breathing problem im seeing dr zapata ??? Chronic pain ??? Digestive problems 12-11 ?? gerd, nutcracker syndrome abdominal gistention dr holder ??? ENT disease 3-[address] laex ??? Headache(784.0) ? Skin disorder ?? acne Past Surgical History Procedure Laterality Date ??? Gastroenterology procedure [address] jimenez ??? Lap, cholecystectomy/graph 11/04/2012 LAPAROSCOPIC CHOLECYSTECTOMY WITH CHOLANGIOGRAM performed by Abel Carlton MD at [facility] MAIN OR ??? Arthrodesis, ant interbody,decompression; cervical below c2 09/08/2013 ARTHRODESIS, ANT INTERBODY,DECOMPRESSION; CERVICAL BELOW C2 performed by Rios Acuna MD at [facility] MAIN OR ??? Arthrd ant interdy cervcl belw c2 ea addl ntrspc 09/08/2013 @ARTHRODESIS ANT INTERBDY CERVCL BELOW C2 EA ADDL INTRSPACE performed by Rios Acuna MD at [facility] MAIN OR ??? Anterior instrumentation 2-3 vertebral segments 09/08/2013 @ANT. SPINAL INSTRUMENTATION, 2-3 VERTEBRA, SEGMENTED performed by Rios Acuna MD at [facility] [place] ??? Allograft for spine surgery only structural 09/08/2013 ALLOGRAFT FOR SPINE SURGERY ONLY; STRUCTUAL performed by Rios Acuna MD at [facility] MAIN OR History Substance Use Topics ??? Smoking status: Current Every Day Smoker -- 1.00 packs/day for 20 years Types: Cigarettes ??? Smokeless tobacco: Never Used ??? Alcohol Use: No Comment: stopped drinking 2 yrs. ago after a surgery in 2010 History Drug Use No Allergies Allergen Reactions ??? Albuterol Liquid--Per patient, she gets hyperactivity. ??? Egg Per patient, she vomits. Medications: MAR and/or home medications have been reviewed. Physical Exam: There were no vitals filed for this visit. There is no weight on file to calculate BMI. Airway [...] mouth. Remaining teeth poor condition, 5 remaining [facility] [place]: Patient is wearing No contact(s). IV access: Peripheral line Anesthesia Plan: ASA 3 general, with a(n) intravenous induction 53 y.o. 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 No documented/reported h/o anesthetic complications. Egg allergy - vomiting but no problems with Propofol during lap [facility] at [facility] [place] in [place]. HTN, recent change in meds for edema, much improved GERD - moderately well controlled on dexilant, still with some regurgitation Asthma, breathing today 01/19, lung granulomatosis, small lung volumes Depression/anxiety COPD, [place], one flight, sometimes has to stop in the middle of 10 steps Multiple pulmonary nodules/granulomata Current smoker, 1 PPD No recent URI Allergies: Albuterol(couldn't sleep), eggs(nausea) Wt: 73.5 kg NPO: Code: Full Plan for GA with ETT; standard ASA monitoring. Region - Other Informed Consent: Anesthetic plan and risks discussed with patient. Use of blood products discussed with patient whom consented to blood products. Plan discussed with HUMAN SERVICES CASE MANAGER. [facility] Assessment: documented in this encounter Plan of Treatment Not on file documented as of this encounter Visit Diagnoses Not on filedocumented in this encounter Administered Medications Inactive Administered Medications - up to 3 most recent administrations Medication Order MAR Action Action Date Dose Rate Site albuterol (PROVENTIL HFA;VENTOLIN HFA) 90 mcg/actuation inhaler PRN, Starting on Sat08/31/14 at 0934, Until Sat08/31/14 at 1009, Wheezing, Anesthesia Intra-op, Routine Given 08/31/2014 9:34 AM EST 4 puffs ceFAZolin (ANCEF) 1g in dextrose 5% 50mL PRN, Starting on Sat08/31/14 at 0754, Until Sat08/31/14 at 1009, Administer over 30 Minutes, Anesthesia Intra-op Given 08/31/2014 7:54 AM EST 2 g dexamethasone (DECADRON) injection PRN, Starting on Sat08/31/14 at 0811, Until Sat08/31/14 at 1009, Anesthesia Intra-op, Routine Given 08/31/2014 8:11 AM EST 8 mg fentaNYL 50mcg/mL injection PRN, Starting on Sat08/31/14 at 0735, Until Sat08/31/14 at 1009, Pain, Anesthesia Intra-op, Routine Given 08/31/2014 8:55 AM EST 50 mcg Given 08/31/2014 8:41 AM EST 50 mcg Given 08/31/2014 8:25 AM EST 50 mcg glycopyrrolate (ROBINUL) injection PRN, Starting on Sat08/31/14 at 0921, Until Sat08/31/14 at 1009, Anesthesia Intra-op, Routine Given 08/31/2014 9:21 AM EST 0.4 mg HYDROmorphone (DILAUDID) injection PRN, Starting on Sat08/31/14 at 0932, Until Sat08/31/14 at 1009, Pain, Anesthesia Intra-op, Routine Given 08/31/2014 9:55 AM EST 0.4 mg Given 08/31/2014 9:50 AM EST 0.4 mg Given 08/31/2014 9:45 AM EST 0.4 mg ketorolac (TORADOL) injection PRN, Starting on Sat08/31/14 at 0918, Until Sat08/31/14 at 1009, Pain, Anesthesia Intra-op, Routine Given 08/31/2014 9:18 AM EST 15 mg lactated ringers infusion CONTINUOUS PRN, Starting on Sat08/31/14 at 0735, Until Sat08/31/14 at 1009, Anesthesia Intra-op New Bag 08/31/2014 8:41 AM EST New Bag 08/31/2014 7:35 AM EST lidocaine (PF) (XYLOCAINE) 100 mg/5 mL (2 %) injection PRN, Starting on Sat08/31/14 at 0739, Until Sat08/31/14 at 1009, Anesthesia Intra-op, Routine Given 08/31/2014 7:39 AM EST 20 mg lidocaine (PF) (XYLOCAINE) 5 mg/mL (0.5 %) injection PRN, Starting on Sat08/31/14 at 0934, Until Sat08/31/14 at 1009, Anesthesia Intra-op, Routine Given 08/31/2014 9:34 AM EST 20 mLs midazolam (PF) (VERSED) 1 mg/mL injection PRN, Starting on Sat08/31/14 at 0734, Until Sat08/31/14 at 1009, Sleep, Anesthesia Intra-op, Routine Given 08/31/2014 7:34 AM EST 2 mg neostigmine (PROSTIGMINE) injection PRN, Starting on Sat08/31/14 at 0921, Until Sat08/31/14 at 1009, Anesthesia Intra-op, Routine Given 08/31/2014 9:21 AM EST 2 mg ondansetron (ZOFRAN) injection PRN, Starting on Sat08/31/14 at 0917, Until Sat08/31/14 at 1009, Nausea, Anesthesia Intra-op, Routine Given 08/31/2014 9:17 AM EST 4 mg PHENYLephrine HCl in NS (PF) (KAMERON-SYNEPHRINE) 0.8 mg/10 mL (80 mcg/mL) injection Syrg PRN, Starting on Sat08/31/14 at 0745, Until Sat08/31/14 at 1009, Anesthesia Intra-op, Routine Given 08/31/2014 9:11 AM EST 40 mcg Given 08/31/2014 7:50 AM EST 80 mcg Given 08/31/2014 7:45 AM EST 40 mcg propofol (DIPRIVAN) 10 mg/mL bolus injection (Anesthesia) PRN, Starting on Sat08/31/14 at 0742, Until Sat08/31/14 at 1009, Anesthesia Intra-op Given 08/31/2014 7:42 AM EST 170 mg rocuronium (ZEMURON) injection PRN, Starting on Sat08/31/14 at 0742, Until Sat08/31/14 at 1009, Anesthesia Intra-op, Routine Given 08/31/2014 7:42 AM EST 50 mg documented in this encounter Care Teams Application Infrastructure Engineer Relationship Specialty Start Date End Date Mary Alice Cage APRN PCP - General 10/12/11 11/12/18 documented as of this encounter
--- OUTSIDE RECORDS SUMMARY | 2024-03-17 18:32 | XMS_ITS | Encounter Summary ---
[place] [address] Care Team Providers Care Revenue Cycle Specialist Name Role Phone CalhounMary Alice davis Rajendra ROY Primary Care Provider [phone] Encounter Details Date Type Department Care Team (Late st Contact Info) Description 07/27/2015 [place] [id number] Virgie Olvera Social History Tobacco Use Types Packs/Day Years [...] Miscellaneous Notes * Telephone Encounter - Virgie Olvera - 07/27/2015 1:49 PM EST I have called and left a message for patient to call back to reschedule her appointment with . The appointment on 08/26/15 has been cancelled and needs to be rescheduled. I have also sent a letter. documented in this encounter Plan of Treatment Not on file documented as of this encounter Visit Diagnoses Not on filedocumented in this encounter Care Teams Revenue Cycle Specialist Relationship Specialty Start Date End Date Mary Alice Cage APRN PCP - General 10/12/11 11/12/18 documented as of this encounter
--- OUTSIDE RECORDS SUMMARY | 2024-03-17 18:32 | XMS_ITS | Encounter Summary ---
[place] [address] Care Team Providers Care Heat Treater Apprentice Name Role Phone Mary Alice Cage MANUELA Primary Care Provider [phone] Reason for Visit * Reason Comments Advice Only Encounter Details Date Type Department Care Team (Late st Contact Info) Description 04/15/2015 Telephone [place] [phone] Nina Hollingsworth RN DEPT OF GASTROENTEROLOGY Advice Only Social History Tobacco Use Types Packs/Day [...] encounter Miscellaneous Notes * Telephone Encounter - Nina Julian RN - 04/15/2015 3:[address] Jaky Daley.We had a nice discussion about this. She didn't think it was helping. Let's do this. For the next 2 weeks, use enteric coated peppermint oil capsules. Purchase at [facility] store. Use 1 capsule 3 times a day (every day). Then she can compare to off meds, and on bentyl. If the bentyl works better, call back and we can start a new rx. But this may have fewer potential side effects Relayed above advice,also relayed her Dexilant PA was approved. Patient verbalized understanding, documented in this encounter Plan of Treatment Not on file documented as of this encounter Visit Diagnoses Not on filedocumented in this encounter Care Teams Heat Treater Apprentice Relationship Specialty Start Date End Date Mary Alice Cage APRN PCP - General 10/12/11 11/12/18 documented as of this encounter
--- OUTSIDE RECORDS SUMMARY | 2024-03-17 18:32 | XMS_ITS | Encounter Summary ---
[place] [address] Care Team Providers Care Composing Room Machinist Name Role Phone Mary Alice Cage MANUELA Primary Care Provider [phone] Reason for Visit * Reason Onset Date Comments Back Pain 08/16/2014 Seen in local ED this weekend for back pain - given Percocet - It's not touching it Encounter Details Date Type Department Care Team (Late st Contact Info) Description 08/16/2014 Telephone [facility] [place] [phone] Ashanti Wu RN Back Pain (Seen in local ED this weekend for back pain - given Percocet - It's not touching it) Social History Tobacco Use Types Packs/Day Years [...] encounter Miscellaneous Notes * Telephone Encounter - Ashanti Wu RN - 08/16/2014 9:00 AM EST TC from Poppy - C/O increased back pain over the weekend. Seen in local ED on Saturday because of the increased pain. Seen by Dr Acuna on 07/07/14. Scheduled for surgery on 08/31/14. Poppy stated that she felt something Pop over the weekend, and since that time her back pain has increased. [facility] in [place], [place]. She stated that she was given a prescription for Percocet 5-325 1 tablet every 4 hours for pain. She is also taking Ibuprofen 800 mg every 4 hours. It doesn't even touchthe pain. I still have pain at an 8 or 9 out of 10 on the pain scale. The pain is in her lower back, & radiates down her right leg. Poppy was advised that Dr Acuna was not available in clinicuntpr Saturday. He did not order pain medication for her when she was seen on 07/07/14. Poppy wasencouraged to call her PCP to discuss pain control prior to her surgery. Dr Acuna will provide pain management during her post op recovery. documented in this encounter Plan of Treatment Not on file documented as of this encounter Visit Diagnoses Not on filedocumented in this encounter Care Teams Composing Room Machinist Relationship Specialty Start Date End Date Mary Alice Cage APRN PCP - General 10/12/11 11/12/18 documented as of this encounter
--- OUTSIDE RECORDS SUMMARY | 2024-03-17 18:32 | XMS_ITS | Encounter Summary ---
[place] [address] Care Team Providers Care Elevator Erector Helper Name Role Phone Mary Alice Cage MANUELA Primary Care Provider [phone] Encounter Details Date Type Department Care Team (Late st Contact Info) Description 08/25/2015 Telephone [place] [phone] Virgie Olvera Social History Tobacco Use Types [...] * Telephone Encounter - Virgie Olvera - 08/25/2015 2:04 PM EST I have called patient and left a message for patient to call us back. Patient is currently scheduled for 08/29 with , he has a meeting at that time. The patient will need to be moved, will be happy to add on later that day or another day. We just need to be mindful of entering appointments on his outlook calendar to prevent overbooking's. documented in this encounter Plan of Treatment Not on file documented as of this encounter Visit Diagnoses Not on filedocumented in this encounter Care Teams Elevator Erector Helper Relationship Specialty Start Date End Date Mary Alice Cage APRN PCP - General 10/12/11 11/12/18 documented as of this encounter
--- OUTSIDE RECORDS SUMMARY | 2024-03-17 18:32 | XMS_ITS | Encounter Summary ---
[place] [address] Care Team Providers Care Butcher Name Role Phone AssumptionMary Alice davis Rajendra ROY Primary Care Provider [phone] Encounter Details Date Type Department Care Team (Late st Contact Info) Description 01/06/2015 Telephone [place] [phone] Gabriella Garcia Social History Tobacco Use Types Packs/Day Years [...] encounter Miscellaneous Notes * Telephone Encounter - Gabriella Garcia - 01/06/2015 10:53 AM EDT Ms. Mclaughlin called re: needing an updated PT referral. Facility requires orders less than 30 days old. New referral faxed to [facility]. [phone]. documented in this encounter Plan of Treatment Not on file documented as of this encounter Visit Diagnoses Not on filedocumented in this encounter Care Teams Butcher Relationship Specialty Start Date End Date Mary Alice Caeg APRN PCP - General 10/12/11 11/12/18 documented as of this encounter
--- OUTSIDE RECORDS SUMMARY | 2024-03-17 18:32 | XMS_ITS | Encounter Summary ---
[place] [address] Care Team Providers Care Weatherization And Housing Inspector Name Role Phone Mary Alice Cage MANUELA Primary Care Provider [phone] Reason for Visit * Reason Onset Date Comments Advice Only 05/24/2015 Encounter Details Date Type Department Care Team (Late st Contact Info) Description 05/24/2015 Telephone [place] [phone] Ej Gilbert, pattern stamper Only Social History Tobacco Use Types Packs/Day [...] Telephone Encounter - Ej Gilbert RN - 05/24/2015 1:00 PM EDT Attempted to return patient call Left message on unidentifiable voicemail that requested medication was sent to her pharmacy. Left clinic number for her to call with questions. Patient can discuss antibiotic treatment for gas/bloating in depth with Dr. Starkey at her July appointment with him. * Telephone Encounter - Ej Gilbert RN - 05/24/2015 12:28 PM EDT Patient calls. States that her trial of peppermint oil capsules didn't work. She would like to return to [facility]. Also states that her course of ciprofloxacin for gas and bloating was not helpful either. Routing to Dr. Starkey documented in this encounter Plan of Treatment Not on file documented as of this encounter Visit Diagnoses Diagnosis Chronic abdominal pain Abdominal pain, unspecified site documented in this encounter Care Teams Weatherization And Housing Inspector Relationship Specialty Start Date End Date Mary Alice Cage APRN PCP - General 10/12/11 11/12/18 documented as of this encounter
--- OUTSIDE RECORDS SUMMARY | 2024-03-17 18:32 | XMS_ITS | Encounter Summary ---
Author Organization [facility] [address] Care Team Providers Care Assembly Adjuster Name Role Phone [place] Alice davis Rajendra ROY Primary Care Provider [phone] Encounter Details Date Type Department Care Team (Latest Contact Info) Description 08/17/2014 9:56 AM [facility] - 08/17/2014 11:59 PM [facility] [place] [address] Rios Acuna MD [facility] [place] [address] Radiculopathy of lumbar region Discharge Disposition: Home Social [...] Inhalational Spacing Device Spcr 2 puffs by [facility]Non-Drug; Combo Route) route daily. promethazine (PHENERGAN) 25 [...] Procedure Name Priority Date/Time Associated Diagnosis Comments HEMOGRAM Routine 08/17/2014 10:17 AM EST Radiculopathy of lumbar region DIFFERENTIAL, AUTOMATED Routine 08/17/2014 10:17 AM EST Radiculopathy of lumbar region TYPE AND SCREEN, SDP (FUTURE SURGERY, [facility] SAME DAY PROGRAM ONLY) Routine 08/17/2014 10:17 AM EST Radiculopathy of lumbar region ABO/RH TYPING Routine 08/17/2014 10:17 AM EST Radiculopathy of lumbar region PROTHROMBIN TIME Routine 08/17/2014 10:1 7 AM EST Radiculopathy of lumbar region CBC (WITH DIFF) Routine 08/17/2014 10:17 AM EST Radiculopathy of lumbar region ANTIBODY SCREEN Routine 08/17/2014 10:17 AM EST Radiculopathy of lumbar region BASIC METABOLIC PANEL Routine 08/17/2014 10:17 AM EST Radiculopathy of lumbar region documented in this encounter Results * Antibody screen (08/17/2014 10:17 AM EST) Ab Screen Interp Negative [facility] Expires at [id number] on: [id number] [facility] Blood specimen (specimen) 08/17/2014 10:17 AM EST 08/17/2014 10:35 AM EST Narrative Resulting Agency Comment Spec In Lab Rios Acuna MD BLOOD BANK LAB ORDER DAMARIS CERNER AMANDAENNIUM * ABO/Rh Typing (08/17/2014 10:17 AM EST) ABORH Type A Pos CERNER MILLENNIUM Blood specimen (specimen) 08/17/2014 10:17 AM EST 08/17/2014 10:35 AM EST Narrative Resulting Agency Comment Spec In Lab Rios Acuna MD BLOOD BANK LAB ORDER DAMARIS Performing Organization Address City/[facility]/ZIP Co de Phone Number CERNER MILLENNIUM * (ABNORMAL) Differential, Automated (08/17/2014 10:17 AM EST) Neutrophil % 69.9 % CERNER MILLENNIUM Neutrophil Absolute 9.83(H) 1.50 - 6.30 x10(3)/mc L CERNER MILLENNIUM Lymph % 23.7 % CERNER MILLENNIUM Lymphocytes Abs 3.3 1.0 - 3.6 x10(3)/mc L CERNER MILLENNIUM Monocyte % 4.8 % CERNER MILLENNIUM Monocyte Abs 0.7 0.2 - 1.0 x10(3)/mc L CERNER MILLENNIUM Eos % 1.3 % CERNER MILLENNIUM Eosinophils Abs 0.2 0.0 - 0.5 x10(3)/mc L CERNER MILLENNIUM Basophil % 0.2 % CERNER MILLENNIUM Baso Absolute 0.0 0.0 - 0.2 x10(3)/mc L CERNER MILLENNIUM Immature Gran % 0.10 % CERN ER MILLENNIUM Comment: Immature granulocytes(IG's)percentage and absolute count will include metamyelocytes, myelocytes, and promyelocytes. Blood smears from CBCs yielding IG's will be scanned manually for concordance. If this scan disagrees with the automated IG or if promyelocytes are noted, a manual differential will be performed. Immature Gran Absolute 0.02 0.00 - 0.05 x10(3)/mc L CERNER MILLENNIUM Blood specimen (specimen) 08/17/2014 10:17 AM EST 08/17/2014 10:25 AM EST Narrative Resulting Agency Comment Spec In Lab Rios Acuna MD HEMATOLOGY ORDERABLE S Performing Organization Address [facility]/ZIP Co de Phone Number CERNER AMANDAENNIUM * (ABNORMAL) Hemogram (08/17/2014 10:17 AM EST) White Blood Cell 14.1(H) 4.0 - 10.0 x10(3)/mc L CERNER MILLENNIUM Red Blood Cell 4.06 3.93 - 5.22 x10(6)/mc L CERNER MILLENNIUM Hemoglobin 12.6 11.2 - 15.7 gm/dL CERNER MILLENNIUM Hematocrit 37.7 34.0 - 45.0 % CERNER MILLENNIUM Mean Cell Volume 92.9 79.0 - 94.0 fL CERNER MILLENNIUM Mean Cell Hemoglobin 31.0 26.6 - 32.2 pg CERNER MILLENNIUM Mean Cell Hemoglobin Concentration 33.4 32.0 - 36.5 gm/dL CERNER MILLENNIUM Platelet 277 145 - 370 x10(3)/mc L CERNER MILLENNIUM RDW Standard Deviation 47.9(H) 35.0 - 46.0 fL CERNER MILLENNIUM RDW coefficient of variation 14.1 10.9 - 14.4 % CERNER MILLENNIUM Mean Platelet Volume 10.1 9.0 - 12.0 fL CERNER MILLENNIUM Blood specimen (specimen) 08/17/2014 10:17 AM EST 08/17/2014 10:25 AM EST Narrative Resulting Agency Comment Spec In Lab Rios Acuna MD HEMATOLOGY ORDERABLE S CERJORGE PATELENNIUM * (ABNORMAL) Prothrombin Time (08/17/2014 10:17 AM EST) Prothrombin Time 12.0(L) 12.5 - 15.5 sec CERNER MILLENNIUM Comment: [facility] Transfusion Committee Guidelines: INR less than 2.0, PTT less than OR equal to 43.5 seconds, or Fibrinogen greater than or equal to 100 mg/dl indicate adequate procoagulant activity for hemostasis in patients without underlying bleeding disorders. International Normalization Ratio 0.8(L) 0.9 - 1.1 CERNER MILLENNIUM Blood specimen (specimen) 08/17/2014 10:17 AM EST 08/17/2014 10:25 AM EST Narrative Resulting Agency Comment Spec In Lab Rios Acuna MD HEMATOLOGY ORDERABLE S CERNER MILLENNIUM * (ABNORMAL) Basic Metabolic Panel (non-fasting) (08/17/2014 10:17 AM EST) Glucose 120 60 - 199 mg/dL CERNER MILLENNIUM Comment:Diabetes: >=200 mg/d L plus symptoms Blood Urea Nitrogen 15 8 - 18 mg/dL CERNER MILLENNIUM Creatinine 1.14 0.70 - 1.20 mg/dL CERNER MILLENNIUM Comment: Please note that the pediatric reference intervals supplied above were not validated at [facility]. Results from pediatric patients should be interpreted in conjunction to the patient's age, height and muscle mass. Sodium 139 135 - 145 mmol/L CERNER MILLENNIUM Potassium 4.0 3.5 - 5.0 mmol/L CERNER MILLENNIUM Comment: Please note: ??Patients with WBC >100,000 may have falsely elevated Potassium levels. ??For accurate Potassium quantification in these patients send serum separator tube (gold top) for subsequent determinations. ??Contact the Clinical Chemistry Laboratory if there are any questions. Chloride 101 98 - 107 mmol/L CERNER MILLENNIUM Carbon Dioxide 23 22 - 31 mmol/L CERNER MILLENNIUM Anion Gap 15 5 - 15 mmol/L CERNER MILLENNIUM Calcium 9.6 8.5 - 10.5 mg/dL CERNER MILLENNIUM Est Glomerular Filtration Rate 50(L) >=60 CERNER MILLENNIUM Comment: This estimated GFR (eGFR) value was [...] the following links into your internet browser. [email or web address] Blood specimen (specimen) 08/17/2014 10:17 AM EST 08/17/2014 10:25 AM EST Narrative Resulting Agency Comment Spec In Lab Rios Acuna MD CHEMISTRY ORDERABLES [facility] documented in this encounter Visit Diagnoses Diagnosis Radiculopathy of lumbar region Thoracic or lumbosacral neuritis or radiculitis, unspecified documented in this encounter Care Teams Assembly Adjuster Relationship Specialty Start Date End Date Mary Alice Cage APRN PCP - General 10/12/11 11/12/18 documented as of this encounter
--- OUTSIDE RECORDS SUMMARY | 2024-03-17 18:32 | XMS_ITS | Encounter Summary ---
Author Organization [facility] [place] [address] Care Team Providers Care Plumbing Technician Name Role Phone TerrellMary Alice davis Rajendra ROY Primary Care Provider [phone] Reason for Referral * Consultation (Routine) - Closed Specialty Diagnoses / Procedures Referred By Chava alejo Referred To Contact General Surgery Diagnoses H/O gastroesophageal reflux (GERD) Justin Starkey MD [facility] [place] [address] Malgorzata Miguel MD [facility] [place] [address] Referral ID Status Reason Start Date Expiration Date V isits Requested Visits Authorized [id number] Closed Specialty Service Requested 08/11/2015 08/10/2016 1 1 * Surgical (Routine) - Closed Specialty Diagnoses / Procedures Referred By Chava alejo Referred To Contact Gastroenterology Diagnoses H/O gastroesophageal reflux (GERD) GERD Procedures MANOMETRY ESOPHAGEAL PALMER CAPSULE PH TEST HREM; Palmer OFF meds, EGD. Pt will stop Dexilant 2 weeks in advance.?? Patient will call to schedule for september or october 2015 Justin Starkey MD [facility] [place] [address] [facility] [address] [place] [address] Referral ID Status Reason Start Date Expiration Date V isits Requested Visits Authorized [id number] Closed Test Only 08/11/2015 08/10/2016 1 1 Reason for Visit * Reason Comments Follow-up Encounter Details Date Type Department Care Team (Latest Contact Info) Description 08/11/2015 10:00 AM EST Office [place] [address] Justin Starkey MD [facility] [place] [address] H/O gastroesophageal reflux (GERD); IBS (irritable bowel syndrome); Diarrhea; Depression; Diabetes mellitus type 2, uncomplicated Social History Tobacco Use Types Packs/Day Years [...] Sign Reading Time Taken Comments Blood Pressure 133/77 08/11/2015 10:08 AM EST Pulse 71 08/11/2015 10:08 AM EST Temperature - - Respiratory Rate - - Oxygen Saturation - - Inhaled Oxygen Concentration - - Weight 92.1 kg (203 lb 1.6 oz) 08/11/2015 10:08 AM EST Height 156.2 cm (5' 1.5) 08/11/2015 10:08 AM ES T Body Mass Index 37.75 08/11/2015 10:08 AM EST documented in this encounter Progress Notes * Justin Starkey MD - 08/17/2015 5:04 PM EST GI FOLLOW-UP Poppy Mclaughlni Female, 54 yrs, 1960 , SR None PCP: Mary Alice Cage ANNEALER: NONE REASON FOR VISIT This is a 54-year-old woman who returns today for a scheduled follow-up appointment. I last saw keara 11/18/14. Her GI issues are those of reflux, nutcracker esophagus with chest spasm/discomfort, IBSwith diarrhea, and gas and bloating due in part to methane overproduction. LAST VISIT At our last visit she weighed 201.6 pounds. I asked that she follow up with her PCP for her medicaland psychological issues and also with her it training specialist for her COPD and worsening shortness of breath. We initiated a trial of Flagyl to help with gas and bloating, but unfortunately that did not seem to help to any significant degree. ON REVIEW TODAY Reflux symptoms are stable on Dexilant. When she misses a dose, reflux symptoms are certainly worse. Several days per week she has esophageal spasms. The higher dose of Neurontin may have helped to some degree. She did not have any side effects on the higher dose of Neurontin. IBS and diarrhea symptoms are better because she is now taking three Vicodin per day for chronic neck and back pain (10 mg dose). She uses Lomotil on a p.r.n. basis. Incontinence is less. We had a long discussion about her symptoms. We discussed other options for esophageal spasm. We also briefly discussed whether or not she might be a candidate for antireflux surgery. Her goal would be to come off Dexilant. Her othergoal is to minimize episodes of regurgitation. We discussed how antireflux surgery has the possibility of worsening gas and bloating and could also create either dysphagia or worsening of esophageal spasms. She would like to investigate this further. Although quite frustrated about the gas and bloating problem, she now recognizes, given the multiple medications that have been tried, that there isno easy fix. With that in mind, a treatment plan is outlined below. ALLERGIES/ADR See eD-H; reviewed. MEDICATIONS See eD-H; reviewed. PAST MEDICAL HISTORY 1. COPD. 2. IBS with diarrhea. 3. 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 5. Reflux. 6. Chronic back and neck [...] - minimal help with gas and bloating. PHYSICAL EXAM Height 5 feet 1 inch. Weight 201.3 pounds. IMPRESSIONS/RECOMMENDATIONS 1. Follow up with PCP for medical and psychological issues. 2. Follow up with it training specialist for her COPD. 3. PRO. Lifestyle modifications. Continue Dexilant at 60 mg q.a.m. 4. To determine whether she may be a candidate for antireflux surgery, she will return here in the spring for high resolution esophageal manometry, upper endoscopy with Palmer pH capsule off PPI therapy. She knows to stop the Dexilant two weeks in advance. She will discuss this with her and then call to schedule. We will then arrange a visit with one of our laparoscopic surgeons (Dr. Miguel) approximately three weeks after the tests are done so that all results are available to Dr. Miguel. 5. For spastic esophageal disorder, trial of Cardizem starting at 30 mg a day and increasing to 30 mg p.o. t.i.d. 6. For IBS with diarrhea, use Lomotil on a p.r.n. basis. Now that she is taking her Vicodin for neck and back pain, diarrhea symptoms are much better, although her abdominal pain is not much better. As she and I discussed, this highlights the fact that treating visceral pain is difficult. 7. For chronic visceral pain and also neck and back pain, she will continue her Neurontin at 900 mgp.o. t.i.d. Her PCP has taken care of that prescription. 8. For gas and bloating due to methane overproduction, trial of ciprofloxacin at 500 mg p.o. b.i.d.for 10 days. The patient was warned of side effects, including that of Clostridium difficile colitis. 9. I will see the patient back in follow-up in 6 months, schedule permitting. TIME SPENT WITH PATIENT I spent 40 minutes with the patient. The entire visit was spent in [id number] counseling and coordination of care. Justin Starkey, PhD, MD facility operations manager, [facility] [employer] Chief, Section of Gastroenterology and Hepatology [facility], Located [facility] [place] [address] V: [phone] F: [phone] MICKY/kelsey CC/EC: PCP - fax copy 08/16/15 [facility] Concrete Hopper Operator - staff msg copy 08/16/15 documented in this encounter Plan of Treatment Scheduled Referrals Name Type Priority Associated Diagnoses Orde r Schedule Referral to Gastroenterology Outpatient Referral Routine H/O gastroesophageal reflux (GERD) Ordered: 08/11/2015 Referral to General Surgery Outpatient Referral Routine H/O gastroesophageal reflux (GERD) Ordered: 08/11/2015 documented as of this encounter Visit Diagnoses Diagnosis H/O gastroesophageal reflux (GERD) Personal history of other diseases of digestive system IBS (irritable bowel syndrome) Irritable bowel syndrome Diarrhea Depression Depressive disorder, not elsewhere classified Diabetes mellitus type 2, uncomplicated Type II or unspecified type diabetes mellitus without mention of complication, not stated as uncontrolled documented in this encounter Care Teams Plumbing Technician Relationship Specialty Start Date End Date Mary Alice Cage APRN PCP - General 10/12/11 11/12/18 documented as of this encounter
--- OUTSIDE RECORDS SUMMARY | 2024-03-17 18:32 | XMS_ITS | Encounter Summary ---
[place] [address] Care Team Providers Care Mental Health Aide Name Role Phone Mary Alice Cage MANUELA Primary Care Provider [phone] Encounter Details Date Type Department Care Team (Late st Contact Info) Description 08/31/2014 7:30 AM EST - 08/31/2014 10:28 AM EST Surgery [place] [address] Rios Gonzalez MD [facility] [place] [address] TRANSPEDICULAR LUMBAR DECOMPRESSION SPINAL CORD,EQUINA & NERVE ROOTS, ONE LVL. (WRVU 21.86) Social History Tobacco Use Types Packs/Day Years [...] Pressure 120/54 08/31/2014 10:26 AM EST Pulse 86 08/31/2014 10:26 AM EST Temperature 36.9 ??C (98.4 ??F) 08/31/2014 10:[address] Respiratory Rate 18 08/31/2014 10:26 AM EST Oxygen Saturation 97% 08/31/2014 10:26 AM EST Inhaled Oxygen Concentration - - [...] to call your physician or the hospital double needle operator if you have any questions, and [...] them. 3. You should also take an [id number] stool softener, such as Colace or Senna, [...] please contact the [facility] Prescription Lineat [phone]. PRESCRIPTION RENEWAL REQUESTS CAN TAKE UP TO 3 DAYS TO FILL. YOU WILL BE REQUIRED TO SWAMPER YOUR NARCOTIC REFILL PRESCRIPTION IN PERSON AT [facility] OR IT CAN BE MAILED TO YOUR [...] fallen off already. PLEASE CALL US AT [phone] TO SPEAK WITH A [facility] NURSE [...] Important Phone Numbers: Clinical issues, nurse questions: [phone] Medication renewals: [phone]: Kalpana : [phone] Follow Up Appointments: 1. You will have follow-up appointments at [facility] as indicated in the ???Future Appointments and [...] Device Spcr 2 puffs by [facility]Non-Drug; Combo Route) route daily. promethazine (PHENERGAN) 25 [...] documented in this encounter H&P Notes * Rois Gonzalez MD - 08/31/2014 5:47 AM EST 24-Hour Pre-Operative H&P Update Poppy Mclaughlin 1960 [id number] Patient seen in pre-op holding area today. [...] Gonzalez MD - 08/31/2014 10:00 AM EST [facility] Operative Note Patient Name: Poppy Mclaughlin : [id number] MR#: [id number] Case Date: 08/31/2014 Surgeon: Surgeon(s) and Role: [...] The L4 pedicle was palpated with the Iona, and we identified the L4-L5 foramen. The [...] Operative Note Patient Name: Poppy Mclaughlin : [id number] MR#: [id number] Case Date: 08/31/2014 Surgeon: Surgeon(s) and Role: * Rios Gonzalez MD - Primary * Quinton Puri MD Preoperative diagnosis: L4-5 far lateral hnp Postoperative diagnosis: L4-5 far lateral hnp Procedure(s): Right L4-5 far lateral diskectomy via Silvano (transpedicular) approach (80678) Anesthesia: General Findings: There was a far [...] Thoracic or lumbosacral neuritis or radiculitis, unspecified Radiculopathy of lumbar region Thoracic or lumbosacral neuritis or radiculitis, unspecified documented in this encounter Administered Medications Inactive Administered Medications - up to 3 most recent administrations Medication Order MAR Action Action Date Dose Rate Site bacitracin injection ONCE PRN, Starting on Sat08/31/14 at 0859, Until Sat08/31/14 at 1304, Intra-Operative (Intra-Procedure), Routine Given 08/31/2014 8:59 AM EST 50,000 Units 19- Surgical Site BUpivacaine (PF) (MARCAINE) 0.25 % (2.5 mg/mL) injection ONCE PRN, Starting on Sat08/31/14 at 0943, Until Sat08/31/14 at 1304, Intra-Operative (Intra-Procedure), Routine Given 08/31/2014 9:43 AM EST 50 mg 19- Surgical Site BUpivacaine-EPINEPHrin e 0.25 %-1:200,000 injection ONCE PRN, Starting on Sat08/31/14 at 0820, Until Sat08/31/14 at 1304, Intra-Operative (Intra-Procedure), Routine Given 08/31/2014 8:20 AM EST 20 mLs 19- Surgical Site fentaNYL (PF) 50 mcg/mL 2mL syringe 25 mcg, Intravenous, EVERY 5 MIN PRN, Pain, for breakthrough pain, Starting on Sat08/31/14 at 0937, Until Sat08/31/14 at 1304, Hold for respiratory rate less than 10 per minute. Maximum dose: 250 mcg over one hour., PACU Recovery Given 08/31/2014 10:26 AM EST 25 mcg Given 08/31/2014 10:21 AM EST 25 mcg Given 08/31/2014 10:00 AM EST 25 mcg gelatin adsorbable 100 (GELFOAM) sponge ONCE PRN, Starting on Sat08/31/14 at 0925, Until Sat08/31/14 at 1304, Intra-Operative (Intra-Procedure), Routine Given 08/31/2014 9:25 AM EST 2 each 19- Surgical Site methylPREDNISolone acetate (depo-MEDROL) injection ONCE PRN, Starting on Sat08/31/14 at 0921, Until Sat08/31/14 at 1304, Intra-Operative (Intra-Procedure), Routine Given 08/31/2014 9:21 AM EST 40 mg 19- Surgical Site oxyCODONE (ROXICODONE) immediate release tablet 5 mg 5 mg, Oral, EVERY 4 HOURS PRN, Starting on Sat08/31/14 at 1006, Until Sat08/31/14 at 1548, Pain, mild pain (1-3), May give additional 5 mg in 30 minutes once if pain not relieved., Routine Given 08/31/2014 1:00 PM EST 5 mg thrombin (Bovine) (THROMBINAR) kit ONCE PRN, Starting on Sat08/31/14 at 0924, Until Sat08/31/14 at 1304, Intra-Operative (Intra-Procedure) Given 08/31/2014 9:25 AM EST 20,000 Units 19- Surgical Site Given 08/31/2014 9:24 AM EST 20,000 Units 19- Surgical Site documented in this encounter Active and Recently Administered Medications Times are shown in EST. PRN Medication Order 08/29/2014 08/30/2014 08/31/2014 bacitracin injection (CANCELED) ONCE PRN, Starting on Sat08/31/14 at 0859, Until 08/31/14 at 1304, Intra-Operative [...] Until 08/31/14 at 1304, Intra-Operative (Intra-Procedure), Routine 0820 (Given - Provid er: Rios Gonzalez MD) fentaNYL (PF) 50 mcg/mL 2mL syringe (CANCELED) 25 mcg, Intravenous, EVERY 5 MIN PRN, Pain, for breakthrough pain, Starting on 08/31/14 at 0937, Until 08/31/14 at 1304, Hold for respiratory rate less than 10 per minute. Maximum dose: 250 mcg over one hour., PACU Recovery 1000 (Given - Provid er: Kaia Rivera RN)1021 (Given - Provider: Kaia Rivera RN)1026 (Given - Provider: Kaia Rivera RN) gelatin adsorbable 100 (GELFOAM) sponge (CANCELED) ONCE PRN, Starting on e 08/31/14 at 0925, Until Tue 15 at 1304, Intra-Operative (Intra-Procedure), Routine 0925 (Given - Provid er: Rios Gonzalez MD - Comment: Soaked in thrombin) methylPREDNISolone acetate (depo-MEDROL) injection (CANCELED) ONCE PRN, Starting on 08/31/14 at 0921, Until Tue 15 at 1304, Intra-Operative (Intra-Procedure), Routine 0921 (Given - Provid er: Rios Gonzalez MD - Comment: used topically on dura at end of case) oxyCODONE (ROXICODONE) immediate release tablet 5 mg (CANCELED)(Linked Group 1) 5 mg, Oral, EVERY 4 HOURS PRN, Starting on 08/31/15 at 1006, Until 08/31/15 at 1548, Pain, mild pain (1-3), May give additional 5 mg in 30 minutes once if pain not relieved., Routine 1300 (Given - Provid er: Kaia Rivera RN) thrombin (Bovine) (THROMBINAR) kit (CANCELED) ONCE PRN, Starting on 08/31/14 at 0924, Until 08/31/14 at 1304, Intra-Operative (Intra-Procedure) 0924 (Given - Provid er: Rios Gonzalez MD - Comment: Soaked using gelfoam patties.)0925 (Given - Provider: Rios Gonzalez MD - Comment: Soaked using gelfoam patties.) Linked Groups Order Group 1: oxyCODONE (ROXICODONE) immediate release tablet 5 mg (CANCELED)Jump to med 5 mg, Oral, EVERY 4 HOURS PRN, Starting on 08/31/14 at 1006, Until Tue 115 at 1548, Pain, mild pain (1-3), May give additional 5 mg in 30 minutes once if pain not relieved., Routine Or oxyCODONE (ROXICODONE) immediate release tablet 10 mg (CANCELED) 10 mg, Oral, EVERY 4 HOURS PRN, Starting on Tue 15 at 1006, Until Tue 1/15 at 1548, Pain, moderate pain (4-6), May give additional 5 mg in 30 minutes once if pain not relieved., Routine Or oxyCODONE (ROXICODONE) immediate release tablet 15 mg (CANCELED) 15 mg, Oral, EVERY 4 HOURS PRN, Starting on Tue 15 at 1006, Until Tue 115 at 1548, Pain, severe pain or opiate tolerant patient (7-10), Do not start patient with 15 mg dose. Do not give 15 mg if patient is opiate niave., Routine documented in this encounter Care Teams Mental Health Aide Relationship Specialty Start Date End Date Mary Alice Cage APRN PCP - General 10/12/11 11/12/18 documented as of this encounter
--- OUTSIDE RECORDS SUMMARY | 2024-03-17 18:32 | XMS_ITS | Encounter Summary ---
Author Organization [facility] [place] [address] Care Team Providers Care Door Core Assembler Name Role Phone JuneauMary Alice davis Rajendra ROY Primary Care Provider [phone] Reason for Visit * Reason Comments Follow-up Encounter Details Date Type Department Care Team (Late st Contact Info) Description 02/21/2015 10:45 AM EDT Follow-[place] [address] Machelle Bueno MD [facility] [place] [address] COPD, moderate; Thrush Discharge Disposition: Home Social History Tobacco Use [...] Sign Reading Time Taken Comments Blood Pressure 115/77 02/21/2015 11:22 AM EDT Pulse 49 02/21/2015 11:22 AM EDT Temperature - - Respiratory Rate 18 02/21/2015 11:22 AM EDT Oxygen Saturation 96% 02/21/2015 11:22 AM EDT Inhaled Oxygen Concentration - - Weight 90.7 kg (200 lb) 02/21/2015 11:22 AM EDT Height 156.2 cm (5' 1.5) 02/21/2015 11:22 AM ED T Body Mass Index 37.18 02/21/2015 11:22 AM EDT documented in this encounter Progress Notes * Machelle Bueno MD - 02/21/2015 12:15 PM EDT PULMONARY MEDICINE Follow-Up Follow-up 54 y.o. female with dyspnea, diaphragmatic weakness, with cervical nerve compression (s/psurgery) at multiple levels. S/P lumbar surgery for spinal stenosis, with residual incontinence. Still with cough, sputum. Tried to quit smoking many times, but w/o success. Still dyspneic on minimalexertion, and feeling that this has gotten worse (though she is trying to do more). Going to PT. PAST MEDICAL HISTORY: Patient Active Problem List [...] Chronic diarrhea 787.91 ??? 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 Hypertension 401.9 ??? Radiculopathy of lumbar region 724.4 ??? Trochanteric bursitis 726.5 ??? Edema 782.3 MEDICATIONS: Outpatient Prescriptions Marked as Taking for the 02/21/15 encounter (Follow-Up) with Machelle Bueno MD Medication Sig Dispense Refill ??? atenolol (TENORMIN) 25 mg Tablet Take 25 mg by mouth daily. ??? gabapentin (NEURONTIN) 300 mg Capsule [...] [facility].(Non-Drug; Combo Route) route daily. ??? fluticasone (FLONASE) [...] 24 hrs Temperature Heart Rate Heart Rate: 49 Heart Rate: [49] Blood Pressure BP: 115/77 mmHg BP: (115)/(77) Respiratory Rate Resp: 18 Resp: [18] SpO2 SpO2: 96 % SpO2: [96 %] [...] obstruction, and responds to treatment for OAD. Her dyspnea is subjectively worse though PFTs are better. Discussed the use of her inhalers and strategies for smoking cessation. Will give her a short course of Bactrim (and diflucan) for her congestion. She has mildpulmonary hypertension, and her overnight oximetry revealed significant nocturnal desaturation. Will discuss using oxygen at night, followed by a repeat overnight oximetry. F/U 6 months with PFTs. Greater than 20 min of this 25 minute visit was spent in face to face discussion with the patient regarding the nature and complexity of the problems described above, and the details of our diagnostic and therapeutic plans. Had extensive discussion about smoking cessation. documented in this encounter Miscellaneous Notes * Addendum Note - Machelle Bueno MD - 03/06/2015 5:15 PM EDTAddended by: MACHELLE BUENO I on: 03/06/2015 05:15 PM Modules accepted: Level of Service documented in this encounter Plan of Treatment Not on file documented as of this encounter Results * Pulmonary Function Testing (09/01/2015 3:19 PM EST) Narrative Andriy Valdez Jr., MD - 09/01/2015 3:19 PM EST Andriy Valdez Jr., MD ? 09/01/2015 ??3:19 PM Pulmonary Function Testing Spirometry reveals moderate airflow obstruction.?? Lung volumes demonstrate an isolated elevation in RV/TLC ratio with preserved TLC and RV.?? In proper clinical scenario, this could suggest neuromuscular disease or poor effort.?? Diffusing capacity is moderately reduced.?? Note that SVC and FVC are not internally consistent, and VAsb and TLC are not internally consistent.?? In consistency may suggest poor patient effort or difficulty performing the test.?? Oxygen saturation is normal. Andriy Valdez MD Pulmonary Medicine Machelle Overton MD PFT ORDERABLES documented in this encounter Visit Diagnoses Diagnosis COPD, moderate Chronic airway obstruction, not elsewhere classified Thrush Candidiasis of mouth COPD, moderate Chronic airway obstruction, not elsewhere classified documented in this encounter Care Teams Door Core Assembler Relationship Specialty Start Date End Date Mary Alice Cage, RANGE SCIENTIST PCP - General 10/12/11 11/12/18 documented as of this encounter
--- OUTSIDE RECORDS SUMMARY | 2024-03-17 18:32 | XMS_ITS | Encounter Summary ---
[facility] [address] Care Team Providers Care Telemarketer Supervisor Name Role Phone WestonMary Alice davis Rajendra ROY Primary Care Provider [phone] Encounter Details Date Type Department Care Team (Latest Contact Info) Description 08/29/2015 11:06 AM EST - 08/29/2015 11:59 PM [facility] [place] [address] COPD, moderate Discharge Disposition: Home Social History [...] nocturnal O2 1 each PRN 08/29/2015 10/24/2016 DILTiazem (CARDIZEM) 30 mg Tablet Take 1 tablet by mouth 3 times daily for 30 days. 90 tablet 5 08/11/2015 2015 HYDROcodone-acetaminop hen (VICODIN) 5-300 mg Tablet Take [...] Notes * Andriy Valdez Jr., MD - 09/01/2015 3:19 PM ESTAssociated Order(s): PULMONARY FUNCTION TEST Pulmonary Function Testing Spirometry reveals moderate airflow [...] is normal. Andriy Valdez MD Pulmonary Medicine * Andriy Valdez Jr., MD - 08/29/2015 4:47 PM EST Pulmonary Function Testing Spirometry reveals moderate airflow obstruction. Lung volumes demonstrate an isolated elevation in RV/TLC ratio with preserved TLC and RV. In proper clinical scenario, this could suggest neuromuscular disease or poor effort. Diffusing capacity is moderately reduced. Note that SVC and FVC are not internally consistent, and VAsb and TLC are not internally consistent. In consistency may suggest poorpatient effort or difficulty performing the test. Oxygen saturation is normal. Andriy Valdez MD Pulmonary Medicine documented in this encounter Miscellaneous Notes * Addendum Note - Andriy Valdez Jr., MD - 09/01/2015 3:19 PM ESTEncounter addended by: Andriy Valdez Jr., MD on: 09/01/2015 3:19 PM
Documentation filed: Notes Section documented in this encounter Plan of Treatment Not on file documented as of this encounter Procedures Procedure Name Priority Date/Time Associated Diagnosis Comments COMMON PULMONARY FUNCTION TEST Routine 09/01/2015 3:19 PM EST COPD, moderate documented in this [...] is normal. Andriy Valdez MD Pulmonary Medicine Osmany Overton MD PFT ORDERABLES documented in this encounter Visit Diagnoses Diagnosis COPD, moderate Chronic airway obstruction, not elsewhere classified documented in this encounter Care Teams Telemarketer Supervisor Relationship Specialty Start Date End Date Mary Alice Cage APRN PCP - General 10/12/11 11/12/18 documented as of this encounter
--- OUTSIDE RECORDS SUMMARY | 2024-03-17 18:32 | XMS_ITS | Encounter Summary ---
Author Organization [facility] [place] [address] Care Team Providers Care Chain Mortiser Operator Name Role Phone Mary Alice Cage APRN Primary Care Provider [phone] Reason for Visit * Reason Onset Date Comments Medication Refill 03/10/2015 Encounter Details Date Type Department Care Team (Late st Contact Info) Description 03/10/2015 Refill [place] [address] Osmany Holloway MD [facility] [place] [address] Social History Tobacco Use Types Packs/Day Years [...] on filedocumented in this encounter Care Teams Chain Mortiser Operator Relationship Specialty Start Date End Date Mary Alice Cage APRN PCP - General 3//12 4/3/19 documented as of this encounter
--- OUTSIDE RECORDS SUMMARY | 2024-03-17 18:32 | XMS_ITS | Encounter Summary ---
[place] [address] Care Team Providers Care Wad Printing Machine Operator Name Role Phone MuscatineMary Alice davis MANUELA Primary Care Provider [phone] Reason for Visit * Reason Comments Dysphagia Encounter Details Date Type Department Care Team (Late st Contact Info) Description 04/15/2015 Telephone [place] [id number] Nina Hollingsworth, RN DEPT OF GASTROENTEROLOGY Dysphagia Social History Tobacco Use Types Packs/Day Years [...] Encounter - Nina Julian RN - 04/15/2015 2:43 PM EDT Patient calls states since Dr Starkey took my off bentyl my nutcracker has been acting up really bad. Please advise. documented in this encounter Plan of Treatment Not on file documented as of this encounter Visit Diagnoses Not on filedocumented in this encounter Care Teams Wad Printing Machine Operator Relationship Specialty Start Date End Date Mary Alice Cage APRN PCP - General 10/12/11 11/12/18 documented as of this encounter
--- OUTSIDE RECORDS SUMMARY | 2024-03-17 18:33 | XMS_ITS | Encounter Summary ---
[place] [address] Care Team Providers Care Supercalender Operator Name Role Phone Mary Alice Domingo APRN Primary Care Provider [phone] Encounter Details Date Type Department Care Team (Latest Contact Info) Description 06/01/2014 1:00 PM EDT Procedure visit [place] [address] CLINIC, Mary Alice Garcia, RN Fecal incontinence (Primary Dx) Discharge Disposition: Home Social History [...] Progress Notes * Justin Starkey MD - 06/08/2014 2:17 PM EDT ANORECTAL MANOMETRY, SENSORY TESTING, BALLOON EXPULSION David Mclaughlinkihéctor Del Cid Female, 53 yrs, 1960 PCP: MARY ALICE DOMINGO TROUBLE SHOOTING MECHANIC: NONE STUDY DATE: 06/01/14 PROVIDER: Justin Star[place] ([id number]) INDICATION Fecal incontinence. METHODS An anorectal manometry study was performed in a supervised setting, after verbal consent, using [employer]rikworks module with the [employer] software. A solid-state, four-channel circumferential transducer was inserted 6 cm in the rectum and sequentially withdrawn at 1-cm intervals. Resting pressures,sphincter function, anorectal reflex and rectal sensation were determined. No complications were not ed during this procedure. FINDINGS: Upper border of anal canal: 5.5 cm and extended to 1 cm. Resting pressure of anal canal 33 mmHg (normal =25 mmHg and above). Resting pressure of the external anal sphincter (EAS) muscle: 31 mmHg (normal=30 mmHg and above). During voluntary contraction of the EAS, the patient could achieve peak squeeze pressures of 52 mmHg above baseline and could maintain this for 2 seconds. Mean EAS squeeze pressures: 33 mmHg. During attempted sustained contractions the patient could generate pressures of 77 mmHg above baseline and maintain this for 2 seconds. Rectoanal inhibitory reflex (RAIR): present. Rectal Filling First sensation: 10 ml Constant sensation: 20 ml Maximum tolerable: 40 ml Balloon Expulsion Test With the patient in the right lateral recumbent position, a balloon expulsion test was performed. During a two-minute period, the patient was unable to expel a 50-cc rectal balloon. IMPRESSION 1. Normal anal canal pressures. This primarily reflects internal anal sphincter tone. 2. Normal EAS resting pressure. 3. Weak EAS squeeze pressures with rapid fatigue. 4. Normal RAIR rules out Hirschsprung's disease. 5. Evidence of rectal hypersensitivity given low first sensation, constant sensation, MTV. 6. Abnormal balloon expulsion test. RECOMMENDATION Please see recent consultation note for further details. Fecal incontinence in this patient likely reflects very weak EAS squeeze pressures. Rectal hypersensitivity, in many patients with fecal incontinence, is related to hypervigilance. Justin Starkey, PhD, MD geriatric social worker, [facility] [employer] Section of Gastroenterology and Hepatology [facility] [place] [address] [address] V: [phone] F: [phone] MICKY/mian EC/CC: PCP - staff msg copy 06/08/14 Malia Vidal APRN - staff msg copy 06/08/14 Patient - mail copy 06/08/14 * Mary Alice Galvan RN - 06/01/2014 1:58 PM EDT Anal manometry performed without difficulty and Was well tolerated. Was not able to expel the balloon. documented in this encounter Plan of Treatment Not on file documented as of this encounter Visit Diagnoses Diagnosis Fecal incontinence- Primary Full incontinence of feces documented in this encounter Care Teams Supercalender Operator Relationship Specialty Start Date End Date Mary Alice Domingo APRN PCP - General 10/12/11 11/12/18 documented as of this encounter
--- OUTSIDE RECORDS SUMMARY | 2024-03-17 18:33 | XMS_ITS | Encounter Summary ---
[place] [address] Care Team Providers Care Senior Statistician Name Role Phone LatimerMary Alice davis Rajendra ROY Primary Care Provider [phone] Reason for Visit * Reason Onset Date Comments Medication Refill 09/17/2013 refill post op pain meds. Encounter Details Date Type Department Care Team (Late st Contact Info) Description 09/17/2013 Refill [place] [id number] Milvia Fernandez, RN Social History Tobacco Use Types Packs/Day Years Used Date Smoking Tobacco: Some Days Cigarettes 1.5 20 Started: 07/07/1993; Last attempted to quit: 07/07/2013 Smokeless Tobacco: Never Alcohol Use Standard Drinks/Week Comments No 0 (1 standard drink = 0.6 oz pure alcohol) stopped drinking 2 yrs. ago after a surgery in 2010 Sex and Gender Information Value Date Recorded Sex Assigned at Not on file Gender Identity Not on file Sexual Orientation Not on file documented as of this encounter Miscellaneous Notes * Telephone Encounter - Milvia Fernandez RN - 09/17/2013 11:59 AM EST Received call from patient requesting refill of post op pain medication, she is currently taking Hydromorphone 2 mg tabs, 2 tabs Q 4 hours. She reports having 18 tabs on hand and she is asking that prescription be mailed to her local pharmacy, she is not able to have prescription picked up from [facility]. She states that she has tried to stop the dilaudid, using tylenol only but this was not enough. Discussed possibility of switching over to hydrocodone/acetaminophen that can be called in and patient, she has used this in the past. Patient is s/p 09/08/13 C 5-7 ACDF. Above discussed with Dr. Acuna, he authorized switch to hydrocodone/acetaminophen 5/325 mg, 1-2 tabs Q 6 hours as needed. A call was placed back to patient and she was informed of the above. Discussed dose, frequency, andmax of 8 tabs in 24 hours. Patient is aware that each tablet contains 325 mg of tylenol and she should stop other tylenol while taking this medication. documented in this encounter Plan of Treatment Not on file documented as of this encounter Visit Diagnoses Not on filedocumented in this encounter Care Teams Senior Statistician Relationship Specialty Start Date End Date Mary Alice Cage APRN PCP - General 10/12/11 11/12/18 documented as of this encounter
--- OUTSIDE RECORDS SUMMARY | 2024-03-17 18:33 | XMS_ITS | Encounter Summary ---
[place] [address] Care Team Providers Care Dispatcher Automobile Rental Name Role Phone GentryMary Alice davis Rajendra ROY Primary Care Provider [phone] Reason for Visit * Reason Onset Date Comments Questions 01/12/2014 Encounter Details Date Type Department Care Team (Late st Contact Info) Description 01/12/2014 Telephone [place] [address] Chen Valencia, RN Questions Social History Tobacco Use Types Packs/Day Years Used Date Smoking Tobacco: Some Days Cigarettes 0.5 20 Started: 07/07/1993; Last attempted to quit: [...] Telephone Encounter - Chen Valencia, RN - 01/12/2014 8:49 AM EDT Patient calling at the suggestion of her physical; therapist asking shanice when she was seen in Dr Acuna advised that she was not cleared to drive. Explained that if she was having paresthesia or weakness in her upper extremities or she did not have adequate neck And/or shoulder/upper body range of motion allowing full field of vision required to drive that she would not have been cleared. Suggested that if therapist has noted an improvement in these factors, that if the therapist tested and document that she did have necessary rom/field of vision and sensation that she would be cleared to drive. Pt verbalized appreciation of clarity as once she is cleared to drive she has an ability to return to work. documented in this encounter Plan of Treatment Not on file documented as of this encounter Visit Diagnoses Not on filedocumented in this encounter Care Teams Dispatcher Automobile Rental Relationship Specialty Start Date End Date Mary Alice Cage APRN PCP - General 10/12/11 11/12/18 documented as of this encounter
--- OUTSIDE RECORDS SUMMARY | 2024-03-17 18:33 | XMS_ITS | Encounter Summary ---
[place] [address] Care Team Providers Care District Captain Name Role Phone Mary Alice Cage MANUELA Primary Care Provider [phone] Reason for Visit * Reason Comments Neck Pain Mid Back Pain Low Back Pain Encounter Details Date Type Department Care Team (Late st Contact Info) Description 03/15/2014 11:00 AM EDT Office [place] [address] Rios Acuna MD [facility] [place] [address] Herniated nucleus pulposus, C6-7 Right, S/P C5-7 ACDF 09/08/13 (Primary Dx) Discharge Disposition: Home Social History [...] Progress Notes * Rios Acuna MD - 03/15/2014 11:28 AM EDT DATE OF SURGERY: 09/08/2013 SURGERY: C5-C7 ACDF. INTERVAL HISTORY: Ms. Mclaughlin returns today about six months out from surgery. She continues to do quite well in terms of her neck. She is having no upper extremity pain, and she notes that the hand function is almost back to normal. In fact, she has knit over 100 hats for newborns that she brought with her today to be distributed to the nursery. She is not needing any pain medication. She does continue to smoke, though she did try another round of Chantix. Also, she does note that she is having much more bothersome back pain that radiates to her right lower extremity. She is more concerned with that than her neck. PHYSICAL EXAMINATION: General: The patient is comfortable, in no acute distress. Neck: She has a well-healed anterior incision. She can flex 20 degrees, extend 30 degrees, rotate 30 degrees, and side bend 20 degrees. Neurologic Exam: She has 5/5 strength in all upper extremity motor groups. She has no upper extremity numbness. IMAGING: Lateral flexion-extension views of the cervical spine obtained today demonstrate no change in alignment of the grafts or the hardware. She appears to have gone on to a solid fusion at both levels. There is no motion from flexion to extension. ASSESSMENT/PLAN: Ms. Mclaughlin is about six months out from her anterior cervical diskectomy and fusion and is doing quite well. Her hand numbness and function continues to improve. While she has gone on to a solid fusion, I continued to advocate smoking cessation. Additionally, she is having significant back pain with some radiation to her right lower extremity. She did do some physical therapy for her back, but it did not help much. She wants to proceed with an MRI, which I think is reasonable. We will set that up, and I will see her back after that to discuss the back. I will also plan to see her back in six months with flexion-extension x-rays of the neck. documented in this encounter Plan of Treatment Not on file documented as of this encounter Results * XR cervical spine [...] change. Rios Acuna MD IMG DX ORDERABLES * MRI lumbar spine without contrast (04/07/2014 3:04 PM EDT) Anatomical Region Laterality Modality L-spine Magnetic Resonan ce 04/07/2014 3:04 PM EDT Narrative 04/07/2014 4:24 PM EDT Examination MR Lumbar Spine WO Clinical History Low back pain radiating to right lower extremity Technique Routine noncontrast MRI of the lumbar spine. Comparison None. Findings The examination demonstrates disc degenerative change at L5-S1 with disc desiccation changes and relative preservation of disc height. ??There is a grade 1 spondylolisthesis of L5 on S1 with facet arthropathy. ??No pars defects seen. ?? There is otherwise normal alignment of the remaining segments. ??Intervertebral disc spaces are maintained in height and signal above the level of L5. ?? Vertebral bodies are normal in height and signal. ??The conus demonstrates normal size shape and signal intensity and terminates at a low normal position at the caudal margin of L2. There is no abdominal aortic aneurysm. Findings at specific levels: ?? T12-L1, L1-2: normal. L2-3: There is a mild annular bulge with mild effacement of the ventral thecal sac and mild caudal foraminal narrowing. ?? L3-4: No disc protrusion or central stenosis. Mild facet arthropathy greater on the right. Mild caudal foraminal narrowing bilaterally associated with disc material and facet change. ?? L4-5: there is a facet arthropathy bilaterally and buckling of the ligamentum flavum greater on the right. Mild annular bulge. Right foraminal and far lateral disc protrusion with moderate right foraminal narrowing. ??Mild left foraminal narrowing. L5-S1: Extensive facet arthropathy bilaterally left greater than right. Left facet hypertrophic change with mild effacement of the posterior thecal sac. Mild disc protrusion without effacement of the ventral thecal sac. Mild to moderate bilateral foraminal narrowing associated with facet arthropathy and anterolisthesis of L5 on S1. ?? Impression Degenerative changes greatest at the L5-S1 level described in detail at individual levels in the body of the report. Grade 1 degenerative spondylolisthesis of L5 on S1. L4-5 right foraminal and far lateral disc protrusion Comment: The following findings are so common in people without low back pain that while we report their presence, they must be interpreted with caution and in the context of the clinical situation. (Reference-Liboriok et al, Spine 2001) Findings: (prevalence in patients without low back pain), Disk degeneration (decreased T2 signal, height loss, bulge) (91%), Disk T2-signal loss (83%), Disk height loss (56%), Disk bulge (64%), Disk protrusion (32%), Annular fissure (38%). Procedure Note Marcos Welsh MD - 04/07/2014 Examination MR Lumbar Spine WO Clinical History Low back pain radiating to right lower extremity Technique Routine noncontrast MRI of the lumbar spine. Comparison None. Findings The examination demonstrates disc degenerative change at L5-S1 with disc desiccation changes and relative preservation of disc height. There is agrade 1 spondylolisthesis of L5 on S1 with facet arthropathy. No pars defectsseen. There is otherwise normal alignment of the remaining segments.Intervertebral disc spaces are maintained in height and signal above the level of L5. Vertebral bodies are normal in height and signal. The conus demonstrates normal size shape and signal intensity and terminates at a low normalposition at the caudal margin of L2. There is no abdominal aortic aneurysm. Findings at specific levels: T12-L1, L1-2: normal. L2-3: There is a mild annular bulge with mild effacement of the ventralthecal sac and mild caudal foraminal narrowing. L3-4: No disc protrusion or central stenosis. Mild facet arthropathygreater on the right. Mild caudal foraminal narrowing bilaterally associated withdisc material and facet change. L4-5: there is a facet arthropathy bilaterally and buckling of theligamentum flavum greater on the right. Mild annular bulge. Right foraminal and far lateral disc protrusion with moderate right foraminal narrowing. Mildleft foraminal narrowing. L5-S1: Extensive facet arthropathy bilaterally left greater than right.Left facet hypertrophic change with mild effacement of the posterior thecalsac. Mild disc protrusion without effacement of the ventral thecal sac. Mild to moderate bilateral foraminal narrowing associated with facet arthropathyand anterolisthesis of L5 on S1. Impression Degenerative changes greatest at the L5-S1 level described in detail at individual levels in the body of the report. Grade 1 degenerative spondylolisthesis of L5 on S1. L4-5 right foraminal and far lateral disc protrusion Comment: The following findings are so common in people without low backpain that while we report their presence, they must be interpreted with cautionand in the context of the clinical situation. (Reference-Jarvik et al, [id number]) Findings: (prevalence in patients without low back pain), Diskdegeneration (decreased T2 signal, height loss, bulge) (91%), Disk T2-signal loss(83%), Disk height loss (56%), Disk bulge (64%), Disk protrusion (32%), Annular fissure (38%). Rios Acuna MD IMG MRI ORDERABLES documented in this encounter Visit Diagnoses Diagnosis Herniated nucleus pulposus, C6-7 Right, S/P C5-7 ACDF 09/08/13- Primary Displacement of cervical intervertebral disc without myelopathy Herniated nucleus pulposus, C6-7 Right, S/P C5-7 ACDF 09/08/13 Displacement of cervical intervertebral disc without myelopathy Herniated nucleus pulposus, C6-7 Right, S/P C5-7 ACDF 09/08/13 Displacement of cervical intervertebral disc without myelopathy documented in this encounter Care Teams District Captain Relationship Specialty Start Date End Date Mary Alice Cage APRN PCP - General 10/12/11 11/12/18 documented as of this encounter
--- OUTSIDE RECORDS SUMMARY | 2024-03-17 18:33 | XMS_ITS | Encounter Summary ---
[place] [address] Care Team Providers Care Commodities Requirements Analyst Name Role Phone Mary Alice Cage MANUELA Primary Care Provider [phone] Reason for Visit * Reason Comments Low Back Pain Encounter Details Date Type Department Care Team (Latest Contact Info) Description 04/07/2014 4:00 PM EDT Office Visit [place] [address] Rios Acuna MD [facility] [place] [address] Radiculopathy of lumbar region (Primary Dx) Discharge Disposition: Home Social History [...] - Inhaled Oxygen Concentration - - Weight 71.2 kg (157 lb) 04/07/2014 5:00 PM EDT Height 154.9 cm (5' 1) 04/07/2014 5:00 PM EDT Body Mass Index 29.66 04/07/2014 5:00 PM EDT documented in this encounter Patient Instructions * Patient Instructions* Magda Huff, FOUNDATION ENGINEER - 04/07/2014 5:00 PM EDT Images from the original note were not included. [facility] Stopping Smoking: After Your Visit Your Care Instructions Cigarette smokers crave the nicotine in cigarettes. Giving it up is much harder than simply changing a habit. Your body has to stop craving the nicotine. It is hard to quit, but you can do it. There are many tools that people use to quit smoking. You may find that combining tools works best for you. There are several steps to quitting. First you get ready to quit. Then you get support to help you.After that, you learn new skills and behaviors to become a nonsmoker. For many people, a necessary step is getting and using medicine. Your doctor will help you set up the plan that best meets your needs. You may want to attend a smoking cessation program to help you quit smoking. When you choose a program, look for one that has proven success. Ask your doctor for ideas. You will greatly increase your chances of success if you take medicine as well as get counseling or join a cessation program. Some of the changes you feel when you first quit tobacco are uncomfortable. Your body will miss thenicotine at first, and you may feel short-tempered and grumpy. You may have trouble sleeping or concentrating. Medicine can help you deal with these symptoms. You may struggle with changing your smoking habits and rituals. The last step is the tricky one: Be prepared for the smoking urge to continue for a time. This is a lot to deal with, but keep at it. You will feel better. Follow-up care is a liriano part of your treatment and safety. Be sure to make and go to all appointments, and call your doctor if you are having problems. It???s also a good idea to know your test results and keep a list of the medicines you take. How can you care for yourself at home? ?? Ask your family, friends, and coworkers for support. You have a better chance of quitting if youhave help and support. ?? Join a support group, such as Nicotine Anonymous, for people who are trying to quit smoking. ?? Consider signing up for a smoking cessation program, such as the [place] [employer]'s [place] from Smoking program. ?? Set a quit date. Pick your date carefully so that it is not right in the middle of a big deadline or stressful time. Once you quit, do not even take a puff. Get rid of all ashtrays and lighters after your last cigarette. Clean your house and your clothes so that they do not smell of smoke. ?? Learn how to be a nonsmoker. Think about ways you can avoid those things that make you reach fora cigarette. ?? Avoid situations that put you at greatest risk for smoking. For some people, it is hard to have a drink with friends without smoking. For others, they might skip a coffee break with coworkers who smoke. ?? Change your daily routine. Take a different route to work or eat a meal in a different place. ?? Cut down on stress. Calm yourself or release tension by doing an activity you enjoy, such as reading a book, taking a hot bath, or gardening. ?? Talk to your doctor or pharmacist about nicotine replacement therapy, which replaces the nicotine in your body. You still get nicotine but you do not use tobacco. Nicotine replacement products help you slowly reduce the amount of nicotine you need. These products come in several forms, many of them available [id number]: ?? Nicotine patches ?? Nicotine gum and lozenges ?? Nicotine inhaler ?? Ask your doctor about bupropion (Wellbutrin) or varenicline (Chantix), which are prescription medicines. They do not contain nicotine. They help you by reducing withdrawal symptoms, such as stressand anxiety. ?? Some people find hypnosis, acupuncture, and massage helpful for ending the smoking habit. ?? Eat a healthy diet and get regular exercise. Having healthy habits will help your body move pastits craving for nicotine. ?? Be prepared to keep trying. Most people are not successful the first few times they try to quit.Do not get mad at yourself if you smoke again. Make a list of things you learned and think about when you want to try again, such as next week, next month, or next year. Where can you learn more? Visit our health information library at http://Isai/healthinfo You can also view health information on [employer], your personal patient account. Log in or sign up today. Enter Y522 in the search box to learn more about Stopping Smoking: After Your Visit. ?? [id number] [employer]. Care instructions adapted under license by [facility]. This care instruction is for use with your licensed healthcare professional. If you have questions about a medical condition or this instruction, always ask your healthcare professional. [employer] disclaims any warranty or liability for your use of this information. Content Version: 9.9.051434; Last Revised: March 17, 2013 documented in this encounter Progress Notes * Rios Acuna MD - 04/07/2014 5:02 PM EDT INTERVAL HISTORY: Ms. Mclaughlin returns today to discuss her low back pain. This has been going on for over a year. The pain radiates from her low back to right buttock, anterolateral thigh, and sometimes distally to her anterior leg. The back pain as well as what she describes as tail bone pain is more bothersome than the leg pain. It comes on with both prolonged sitting or prolonged standing and improves if she moves around. This bothers her at night. She does get some diffuse numbness in the right lower extremity. She did not note any consistent weakness. She denies any changes in her bowel or bladder function. She saw a physical therapist, but that was of no help. She has been taking ibuprofen and Tylenol with no benefit. She has not had any injections or prior lumbar spine surgery. PHYSICAL EXAM: General: The patient is comfortable, in no acute distress. Back: Her back is tender to palpation in the midline, in the lower lumbar spine, and over her right SI joint and right sciatic notch. She can flex 80 degrees and extend 10 degrees, with extension being more painful. Neurologic exam: She walks with a normal gait. She can heel walk and toe walk. Motor exam reveals 5/5 strength in all lower extremity motor groups. She has a normal sensory exam. Reflexes are 1/4 at the knees and trace at the ankles, symmetric. She does get some pain in the right lower extremity with straight leg raise, though it is unclear if this is radicular pain versus hamstring tightness. She had no clonus, Babinski is negative. Hip exam: She has normal range of motion of both hips. She is tender to palpation over the right greater trochanter. Vascular exam: She has palpable pulses bilaterally. IMAGING: MRI of the lumbar spine obtained today demonstrated some mild degenerative changes in the lower lumbar spine. At L4-L5, she has a right foraminal and far lateral disk protrusion that abuts the exiting L4 root. It does not seem to displace it substantially. She may have a very subtle degenerative listhesis at L5-S1. She has no nerve compression at that level. ASSESSMENT/PLAN: Ms. Mclaughlin is a 53-year-old female with over a year of low back pain with some radiation to her right lower extremity. She does have a foraminal and far lateral disk protrusion on the right at L4-L5 that could be contributing to her symptoms. Additionally, she is quite tender over the greater trochanter, and she could have some trochanteric bursitis contributing. Given the that most of her pain is in the low back rather than the leg, it is hard to know how much benefit she would get from a right L4-L5 far lateral diskectomy. As such, I recommended that she try a right L4-L5 transforaminal epidural steroid injection for diagnostic and therapeutic purposes. If that markedly improved her pain and then it returned, I would be more confident about the results of a diskectomy. If the injection fails to give her relief, she could consider a right greater trochanteric bursal injection to see how much of a role the bursitis is playing. She is going to think over her options and let us know if she wants to proceed with an injection. documented in this encounter Plan of Treatment Not on file documented as of this encounter Procedures Procedure Name Priority Date/Time Associated Diagnosis Comments LAB SCAN 08/20/2014 12:00 AM EST documented in this encounter Results * SCAN DOC: LAB (08/20/2014 12:00 AM EST) Scanning Provider MEDIA MGR SCAN EXT O RDR/RSLT documented in this encounter Visit Diagnoses Diagnosis Radiculopathy of lumbar region- Primary Thoracic or lumbosacral neuritis or radiculitis, unspecified documented in this encounter Care Teams Commodities Requirements Analyst Relationship Specialty Start Date End Date Mary Alice Cage APRN PCP - General 10/12/11 11/12/18 documented as of this encounter
--- OUTSIDE RECORDS SUMMARY | 2024-03-17 18:33 | XMS_ITS | Encounter Summary ---
Author Organization [facility] Address [facility] [place] [address] Care Team Providers Care Operations Supervisor Name Role Phone Mary Alice Cage APRN Primary Care Provider [phone] Encounter Details Date Type Department Care Team (Latest Contact Info) Description 10/05/2013 10:23 AM EST - 10/05/2013 11:59 PM [facility] Hospital Encounter XRay at [address] [place] [address] Herniated nucleus pulposus, C6-7 Right, with degenderative changes Social History Tobacco Use Types Packs/Day Years [...] Sig Dispensed Refills Start Date End Date promethazine (PHENERGAN) 25 mg tablet Take 25 mg by mouth every 6 hours as needed. MULTIVITAMIN ORAL Take 2 tablets by mouth daily. ASCORBATE CALCIUM (VITAMIN C ORAL) Take 1 tablet by mouth daily. cholecalciferol, Vitamin D3, 400 unit tablet Take 400 Units by mouth daily. loratadine (CLARITIN) 10 mg tabletIndications:Mult iple nodules of lung Take 10 mg by mouth daily. HYDROcodone-acetaminop hen 5-325 mg per tablet Take 1-2 tablets by mouth every 8 hours as needed for Pain. Max of 6 tabs in 24 hours. 70 tablet 0 10/02/2013 10/16/2013 diphenoxylate-atropine (LOMOTIL) 2.5-0.025 mg per tablet Take 1 tablet by mouth 4 times daily as needed for Diarrhea. DO NOT restart this unless you are having diarrhea. 120 tablet 5 09/09/2013 11/24/2013 BUPROPION HCL (WELLBUTRIN ORAL) Take 200 mg by mouth 2 times daily. 11/25/2018 amlodipine (NORVASC) 5 mg tablet Take 5 mg by mouth daily. 08/17/2014 gabapentin (NEURONTIN) 300 mg capsule Take 300 mg by mouth daily. 11/18/2014 dicyclomine (BENTYL) 10 mg capsule Take 1 capsule by mouth 4 times daily. 120 capsule 5 12/05/2012 11/24/2013 VITAMIN B COMPLEX ORAL Take 1 tablet by mouth. 09/13/2017 pseudoephedrine (SUDAFED) 30 mg tabletIndications:Mult iple nodules of lung Take 30 mg by mouth every 4 hours as needed. 08/11/2015 guaiFENesin (ROBITUSSIN) 100 mg/5 mL syrupIndications:Multi ple nodules of lung Take 200 mg by mouth 3 times daily as needed. 12/20/2016 fluticasone (FLONASE) 50 mcg/actuation nasal sprayIndications:Rhini tis 1 spray by Each Nare route 2 times daily. 16 g 12 08/28/2012 11/07/2013 ipratropium (ATROVENT) 0.06 % nasal sprayIndications:Rhini tis 2 sprays by Nasal route 4 times daily. 15 mL 12 08/28/2012 10/21/2013 citalopram (CELEXA) 40 mg tablet Take 1 tablet by mouth daily. 90 tablet 3 08/19/2012 07/14/2021 dexlansoprazole (DEXILANT) 60 mg CpDM Take 60 mg by mouth 2 times daily. 60 tablet prn 05/28/2012 10/21/2013 documented as of this encounter Plan of Treatment Not on file documented as of this encounter Procedures Procedure Name Priority Date/Time Associated Diagnosis Comments XR CERVICAL SPINE 2 OR 3 VIEWS Routine 10/05/2013 10:33 AM EST Herniated nucleus pulposus, C6-7 Right, with degenderative changes documented in this encounter Results * XR Cervical Spine 2 or 3 views (10/05/2013 10:33 AM EST) Anatomical Region Laterality Modality C-spine N/A Radiographic Martha ging 10/05/2013 10:3 3 AM EST Narrative 10/05/2013 11:26 AM EST Examination Cervical Spine 2 or 3 Views Clinical History s/p surgery Comparison 08/31/2013. Technique AP and lateral views of the cervical spine. Findings The patient is status post anterior fusion of C5-C7 with anterior sideplate and screws and interposed bone graft. ??Alignment is unremarkable but there is some loss of cervical lordosis. ??There is mild spondylosis at C4-C5. ??Prevertebral soft tissues are normal. Impression Status post anterior fusion of C5-C7 with interposed bone graft. ??Mild spondylosis at C4-C5. Procedure Note Coleman Bal MD - 10/05/2013 Examination Cervical Spine 2 or 3 Views Clinical History s/p surgery Comparison 08/31/2013. Technique AP and lateral views of the cervical spine. Findings The patient is status post anterior fusion of C5-C7 with anteriorsideplate and screws and interposed bone graft. Alignment is unremarkable but there issome loss of cervical lordosis. There is mild spondylosis at C4-C5.Prevertebral soft tissues are normal. Impression Status post anterior fusion of C5-C7 with interposed bone graft. Mild spondylosis at C4-C5. Rios Acuna MD IMG DX ORDERABLES documented in this encounter Visit Diagnoses Diagnosis Herniated nucleus pulposus, C6-7 Right, with degenderative changes Displacement of cervical intervertebral disc without myelopathy documented in this encounter Care Teams Operations Supervisor Relationship Specialty Start Date End Date Mary Alice Cage APRN PCP - General 10/12/11 11/12/18 documented as of this encounter
--- OUTSIDE RECORDS SUMMARY | 2024-03-17 18:33 | XMS_ITS | Encounter Summary ---
Author Organization [facility] [address] Care Team Providers Care Animal Services Officer Name Role Phone Mary Alice Cage APRN Primary Care Provider [phone] Reason for Visit * Reason Comments Medication Refill Encounter Details Date Type Department Care Team (Late st Contact Info) Description 11/07/2013 Refill [place] [address] Samra Goodson SENIOR AGRICULTURAL ASSISTANT [facility] [place] [address] Social History Tobacco Use Types Packs/Day Years [...] on filedocumented in this encounter Care Teams Animal Services Officer Relationship Specialty Start Date End Date Mary Alice Cage APRN PCP - General 10/12/11 11/12/18 documented as of this encounter
--- OUTSIDE RECORDS SUMMARY | 2024-03-17 18:33 | XMS_ITS | Encounter Summary ---
[place] [address] Care Team Providers Care Shop Worker Name Role Phone TurnerMary Alice davis MANUELA Primary Care Provider Reason for Visit * Reason Onset Date Comments Other 05/05/2014 follow up to inj ection Encounter Details Date Type Department Care Team (Late st Contact Info) Description 05/05/2014 Telephone [place] [address] Lacey Steiner, RN Other (follow up to injection) Social History Tobacco Use Types Packs/Day Years [...] Telephone Encounter - Lacey Steiner, RN - 05/05/2014 10:58 AM EDT Received call from Heather in follow up to her recent injection. She report getting about 25 % releifin her symptoms from the injection and is questioning if she should repeat it. Case was discussed with Dr. Acuna. Call was placed back to the patient to make her aware Dr. Acuna is recommending she give the injection another week and then see where her symptoms are at. If she still is not experiencing good relief from the injection Dr. Acuna is in agreement with her scheduling a repeat. Sheverbalized understanding and was in agreement with this plan. documented in this encounter Plan of Treatment Not on file documented as of this encounter Visit Diagnoses Not on filedocumented in this encounter Care Teams Shop Worker Relationship Specialty Start Date End Date Mary Alice Cage APRN PCP - General 10/12/11 11/12/18 documented as of this encounter
--- OUTSIDE RECORDS SUMMARY | 2024-03-17 18:33 | XMS_ITS | Encounter Summary ---
[place] [address] Care Team Providers Care Front Of House Manager Name Role Phone Mary Alice Cage APRN Primary Care Provider [phone] Reason for Visit * Reason Onset Date Comments Medication Refill 06/11/2014 Encounter Details Date Type Department Care Team (Late st Contact Info) Description 06/11/2014 Refill [place] [address] Renetta Greenfield MA GASTROENTEROLOGY DEPT Social History Tobacco Use Types [...] on filedocumented in this encounter Care Teams Front Of House Manager Relationship Specialty Start Date End Date Mary Alice Cage APRN PCP - General 10/12/11 11/12/18 documented as of this encounter
--- OUTSIDE RECORDS SUMMARY | 2024-03-17 18:33 | XMS_ITS | Encounter Summary ---
[place] [address] Care Team Providers Care Stave Cutting Supervisor Name Role Phone FremontMary Alice davis Rajendra ROY Primary Care Provider [phone] Reason for Visit * Reason Onset Date Comments Other 06/23/2014 follow up to inj ection Encounter Details Date Type Department Care Team (Late st Contact Info) Description 06/23/2014 Telephone [place] [address] Lacey Steiner, RN Other (follow [...] Telephone Encounter - Lacey Steiner, RN - 06/23/2014 4:15 PM EST Received a call from Heather in follow up to her hip injection. She reports 10-15% relief in her symptoms following the greater trochanteric bursa injection and she is questioning what is next. Case was discussed with Dr. Acuna. Call was placed back to the patient to make her aware Dr. Acuna is happy to see her back with an xray prior to discuss surgical options. She was not available by phone.Xray order as authorized by Dr. Acuna was placed. Message was left to call the Spine Center; Nursing office number was provided. 06/24/14 - Received call back from Heather. She was made aware of the above and in agreement with this plan. Her call was passed to the scheduling staff. documented in this encounter Plan of Treatment Not on file documented as of this encounter Results * XR lumbar spine 2 or 3 views (07/07/2014 9:03 AM EST) Anatomical Region Laterality Modality L-spine N/A Radiographic Martha ging 07/07/2014 9:03 AM EST Narrative 07/07/2014 10:40 AM EST Examination LSPINE 2 OR 3 VIEWS Clinical History low back pain Comparison MR lumbar spine dated 04/07/2014. ?? Technique AP and lateral x-rays of lumbar spine. ?? Findings The lowest formed intervertebral disc space referred L5-S1 for purposes of this report in keeping with previous spine labeling on the MRI of 04/07/2014. There is a mild levo convex curvature of the lumbar spine. There is a grade 1 anterolisthesis of L5 on S1 which appears similar compared to a prior MR allowing for variations in modality. ??This is associated with facet arthropathy at this level. Facet arthropathy is also noted at the L4-5 level. There is mild disc height loss and L5-S1, otherwise, vertebral body and disk space heights appear maintained. Soft tissues are notable for calcification of the abdominal aorta. ?? Impression Lumbar spondylosis, most prominent at the L5-S1 level where there is disc height loss and facet arthropathy. ?? Film and interpretation reviewed by the attending Procedure Note Andriy Jay MD - 07/07/2014 Examination LSPINE 2 OR 3 VIEWS Clinical History low back pain Comparison MR lumbar spine dated 04/07/2014. Technique AP and lateral x-rays of lumbar spine. Findings The lowest formed intervertebral disc space referred L5-S1 for purposes ofthis report in keeping with previous spine labeling on the MRI of 04/07/2014.There is a mild levo convex curvature of the lumbar spine. There is a grade 1 anterolisthesis of L5 on S1 which appears similar compared to a prior MR allowing for variations in modality. This is associated with facetarthropathy at this level. Facet arthropathy is also noted at the L4-5 level. There ismild disc height loss and L5-S1, otherwise, vertebral body and disk spaceheights appear maintained. Soft tissues are notable for calcification of theabdominal aorta. Impression Lumbar spondylosis, most prominent at the L5-S1 level where there is disc height loss and facet arthropathy. Film and interpretation reviewed by the attending Rios Acuna MD IMG DX ORDERABLES documented in this encounter Visit Diagnoses Diagnosis Radiculopathy of lumbar region Thoracic or lumbosacral neuritis or radiculitis, unspecified Radiculopathy of lumbar region Thoracic or lumbosacral neuritis or radiculitis, unspecified documented in this encounter Care Teams Stave Cutting Supervisor Relationship Specialty Start Date End Date Mary Alice Cage APRN PCP - General 10/12/11 11/12/18 documented as of this encounter
--- OUTSIDE RECORDS SUMMARY | 2024-03-17 18:33 | XMS_ITS | Encounter Summary ---
Author Organization [facility] [place] [address] Care Team Providers Care Cigarette Machine Filler Name Role Phone Cb Florence Primary Care Provider [phone] Reason for Visit * Reason Onset Date Comments Medication Refill 10/01/2013 Encounter Details Date Type Department Care Team (Late st Contact Info) Description 10/01/2013 Refill [place] [address] Malia Vidal APRN [facility] [place] [address] Social History Tobacco Use Types Packs/Day Years [...] on filedocumented in this encounter Care Teams Cigarette Machine Filler Relationship Specialty Start Date End Date Cb Florence PA [address] [place] [address] PCP - General Family Medicine 04/08/20 documented as of this encounter
--- OUTSIDE RECORDS SUMMARY | 2024-03-17 18:33 | XMS_ITS | Encounter Summary ---
[place] [address] Care Team Providers Care Hands Parter Name Role Phone PerryMary Alice davis Rajendra ROY Primary Care Provider [phone] Reason for Visit * Reason Onset Date Comments Medication Refill 10/16/2013 Encounter Details Date Type Department Care Team (Late st Contact Info) Description 10/16/2013 Refill [place] [address] Chen Valencia, RN Social History Tobacco Use [...] Telephone Encounter - Chen Valencia, RN - 10/16/2013 3:26 PM EST Received call from Poppy who is s/p ACDF with Dr corbett 09/08/13 Patient is currently taking hydrocodone acetaminophen 5/325 1 tab three times daily during the day and 2 tabs at bed time; pt callingfor a refill. Discussed with ppt that she is beyound the 4 wk post op period and typically pts after this surgery would have transitioned to OTC meds. Patient acknowledged but reported having discussion re taper with Dr Corbett; citing the plan was to decrease to 4 tablet the next week. Above reviewed; script as authorized by Claudette in Dr Corbett immediate absence called to pt's preferred pharmacy. Instructed pt that a two week supply was ordered; at a max of 4 tabs per day for 1 wk then 3 tabs per day the following wk; instructed to use less as able; explaining to use as sparingly as possible as it would be best f this could last > 2 wks and if she might use it to transition to OTC medication. Pt understand the need to call if a final script is needed. Pt verbalized understanding. documented in this encounter Plan of Treatment Not on file documented as of this encounter Visit Diagnoses Not on filedocumented in this encounter Care Teams Hands Parter Relationship Specialty Start Date End Date Mary Alice Cage APRN PCP - General 10/12/11 11/12/18 documented as of this encounter
--- OUTSIDE RECORDS SUMMARY | 2024-03-17 18:33 | XMS_ITS | Encounter Summary ---
Author Organization [facility] Address [facility] [place] [address] Care Team Providers Care Vending Technician Name Role Phone Mary Alice Cage APRN Primary Care Provider [phone] Encounter Details Date Type Department Care Team (Latest Contact Info) Description 12/02/2013 9:59 AM EDT - 12/02/2013 11:59 PM EDT Hospital Encounter XRay at [address] [place] [address] Herniated nucleus pulposus, C6-7 Right, S/P C5-7 [...] lung Take 10 mg by mouth daily. dexlansoprazole (DEXILANT) 60 mg CpDM Take 1 capsule by mouth daily for 90 days. 90 capsule 3 11/24/2013 02/22/2014 diphenoxylate-atropine (LOMOTIL) 2.5-0.025 mg per tablet Take 1 tablet by mouth 4 times daily for 30 days. DO NOT restart this unless you are having diarrhea. 120 tablet 11 11/24/2013 12/24/2013 dicyclomine (BENTYL) 10 mg capsule Take 1 capsule by mouth 4 times daily for 30 days. 120 capsule 11 11/24/2013 12/24/2013 rifaximin (XIFAXIN) 550 mg Tab tablet Take 1 tablet by mouth 3 times daily for 10 days. 30 tablet 1 11/24/2013 12/04/2013 fluticasone (FLONASE) 50 mcg/actuation nasal spray USE [...] XR CERVICAL SPINE FLEXION EXTENSION ONLY Routine 12/02/2013 10:11 AM EDT Herniated nucleus pulposus, C6-7 Right, S/P C5-7 ACDF 09/08/13 documented in this encounter Results * XR cervical spine flexion extension ONLY (12/02/2013 10:11 AM EDT) Anatomical Region Laterality Modality C-spine N/A Radiographic Martha ging 12/02/2013 10:1 1 AM EDT Narrative 12/02/2013 10:33 AM EDT Examination C Spine Flexion Extension Only Clinical History s/p acdf Comparison Cervical spine radiographs 10/05/2013, 09/08/2013. Technique Lateral flexion and extension views of the cervical spine. Findings There is straightening of the normal cervical lordosis, as seen previously. ?? There has been no change in the appearance of the anterior fusion from C5-C7 with anterior plate and screws and interbody spacer placement. ??No evidence of hardware complication. ??No dynamic subluxation seen with flexion and extension. Impression No complication or evidence of instability following anterior fusion of C5-C7. Procedure Note Sachin Piña MD - 12/02/2013 Examination C Spine Flexion Extension Only Clinical History s/p acdf Comparison Cervical spine radiographs 10/05/2013, 09/08/2013. Technique Lateral flexion and extension views of the cervical spine. Findings There is straightening of the normal cervical lordosis, as seenpreviously. There has been no change in the appearance of the anterior fusion fromC5-C7 with anterior plate and screws and interbody spacer placement. Noevidence of hardware complication. No dynamic subluxation seen with flexion andextension. Impression No complication or evidence of instability following anterior fusion ofC5-C7. Rios Acuna MD IMG DX ORDERABLES documented in this encounter Visit Diagnoses Diagnosis Herniated nucleus pulposus, C6-7 Right, S/P C5-7 ACDF 09/08/13 Displacement of cervical intervertebral disc without myelopathy documented in this encounter Care Teams Vending Technician Relationship Specialty Start Date End Date Mary Alice Cage APRN PCP - General 10/12/11 11/12/18 documented as of this encounter
--- OUTSIDE RECORDS SUMMARY | 2024-03-17 18:33 | XMS_ITS | Encounter Summary ---
Author Organization [facility] [place] [address] Care Team Providers Care Legal Department Manager Name Role Phone LabetteMary Alice davis Rajendra ROY Primary Care Provider [phone] Reason for Visit * Reason Comments Follow-up Encounter Details Date Type Department Care Team (Late st Contact Info) Description 08/03/2014 3:45 PM EST Follow-[place] [address] Osmany Holloway MD [facility] [place] [address] Edema; Dyspnea; Hypertension Discharge Disposition: Home Social History Tobacco Use [...] Sign Reading Time Taken Comments Blood Pressure 144/82 08/03/2014 3:46 PM EST Pulse 89 08/03/2014 3:46 PM EST Temperature - - Respiratory Rate 18 08/03/2014 3:46 PM EST Oxygen Saturation 99% 08/03/2014 3:46 PM EST Inhaled Oxygen Concentration - - Weight 88 kg (194 lb) 08/03/2014 3:46 PM EST Height 154.9 cm (5' 1) 08/03/2014 3:46 PM EST Body Mass Index 36.66 08/03/2014 3:46 PM EST documented in this encounter Patient Instructions * Patient Instructions* Osmany Holloway MD - 08/03/2014 4:36 PM EST REDUCE NORVASC TO 5 mg/day, and add lisinopril 10 mg daily. documented in this encounter Progress Notes * Osmany Holloway MD - 08/03/2014 4:01 PM EST PULMONARY MEDICINE Follow-Up Follow-up 53 y.o. female with dyspnea, diaphragmatic weakness, with cervcal nerve compression (s/p surgery) at multiple levels. C/O dry cough, mild wheezing. Tried to quit smoking many times, but w/osuccess. Still dyspneic, but not much worse. PAST MEDICAL HISTORY: Patient Active Problem List [...] lumbar region 724.4 ??? Trochanteric bursitis 726.5 MEDICATIONS: Outpatient Prescriptions Marked as Taking for the 08/03/14 encounter (Follow-Up) with Osmany Holloway MD Medication Sig Dispense Refill ??? BUDESONIDE/FORMOTEROL FUMARATE (SYMBICORT INHL) Inhale 2 puffs into the lungs every 12 hours. ??? diphenoxylate-atropine (LOMOTIL) 2.5-0.025 mg Tablet Take 1 tablet by mouth 4 times daily. DO NOT restarted this unless you are having diarrhea. 120 tablet 7 ??? dicyclomine (BENTYL) 10 mg Capsule Take 10 mg by mouth 4 times daily (before meals and nightly). ??? dexlansoprazole (DEXILANT) 60 mg Cap, Delayed Rel., Multiphasic Take 60 mg by mouth daily. ??? albuterol (PROVENTIL HFA;VENTOLIN HFA) 90 mcg/actuation HFA Aerosol Inhaler Inhale 2 puffs intothe lungs every 4 hours as needed. Use with spacer ??? ibuprofen (ADVIL;MOTRIN) 800 mg Tablet Take 800 mg by mouth 3 times daily. ??? acetaminophen (TYLENOL) 500 mg Tablet Take 1,000 mg by mouth 3 times daily. ??? fluticasone (FLONASE) 50 mcg/actuation nasal spray USE ONE SPRAY IN EACH NOSTRIL TWICE DAILY 1 each 3 ??? ipratropium (ATROVENT) 0.06 % nasal spray USE TWO SPRAYS BY NASAL ROUTE 4 TIMES DAILY 15 mL 2 ??? BUPROPION HCL (WELLBUTRIN ORAL) Take 150 mg by mouth 2 times daily. ??? amlodipine (NORVASC) 5 mg tablet Take 5 mg by mouth daily. ??? promethazine (PHENERGAN) 25 mg tablet Take 25 mg by mouth every 6 hours as needed. ??? gabapentin (NEURONTIN) 300 mg capsule Take 300 mg by mouth daily. ??? cholecalciferol, Vitamin D3, 400 unit [...] by mouth daily. 90 tablet 3 No Facility-Administered Medications for the 08/03/14 encounter (Follow-Up) with Osmany Holloway MD. ALLERGIES: Albuterol and Egg PHYSICAL EXAM Last value Range last 24 hrs Temperature Heart Rate Heart Rate: 89 Heart Rate: [89] Blood Pressure BP: 144/82 mmHg BP: (144)/(82) Respiratory Rate Resp: 18 Resp: [18] SpO2 SpO2: 99 % SpO2: [99 %] WDWN 53 y.o. female in NAD. HEENT-NC/AT; unremarkable Neck-supple without masses or, nodes Chest- Few crackles at bases bilaterally Heart-Normal rate and rhythm, without murmers, gallops, or rubs. Abdomen-benign without organomegaly or tenderness Extremities-no cyanosis, clubbing; 3+ LE edema Skin-no rashes or lesions Musculoskeletal-no joint swelling, tenderness, redness or deformities Neurologic-Nonfocal, without weakness or sensory deficits Lymphatics-unremarkable IMPRESSION: In summary, this is a 53 y.o. female with restrictive lung physiology, primarily extraparenchymal. Her overnight oximetry was OK in 2012 but she has gained quite a bit of weight since then. The edema raises the concern of nocturnal desaturation, so I discussed with her another overnight oximetry, and cutting the amlodipine to 5/d. (I will add lisinopril 10 mg to her regimen, which is a very low starting dose). F/U in 3 months with PFTs. Greater than 30 min of this 40 minute visit was spent in face to face discussion with the patient and family regarding the nature and complexity of the problems described above, and the details of our diagnostic and therapeutic plans. documented in this encounter Plan of Treatment [...] Carr MD Osmany Overton MD PFT ORDERABLES * Echocardiogram Transthoracic(Leb) (11/30/2014 9:09 AM EDT) EF 65 HEARTLAB SYSTEM Anatomical Region Laterality Modality Other 11/30/2014 Narrative 11/30/2014 9:41 AM EDT Procedure: ? Transthoracic Echocardiogram Patient: ? ODETTE Del Cid ?(Age): 1960(54) Med Rec#: ?[id number] ? Sex: ?F ? [place] [place] Ht / Wt: ??154(cm)/91(kg) Pt. Loc: ? Echo Lab ? BSA: ?1.97 Study Date: ?11/30/2014 ? Pt. Type: Outpatient Tape: ? Referring: Osmany Holloway Chairman President And Chief Executive Officer: Andriy Garland Diagnosis:CPT Code(s): ??Echo Full (59721), ??Spectral Doppler (13122), Color Doppler (33406), Indication(s): ??Edema Rhythm: Sinus HR ?BP ?150/88 [...] ? Mid-Inferior ?Normal ? Mid-Inferoseptal ?Normal ? [employer]-Septal ? Normal ? [employer]-Anterior ? Normal ? [employer]-Lateral ?Normal ? [employer]-Inferior ? Normal ? [employer]-Tip ?Normal ? Chambers ?Value ?Units (Range) ? [...] has been electronically signed by: Vinicio Skelton ? 11/30/2014 09:40:46 Images reviewed and interpretation verified [facility] Cardiac Ultrasound Laboratory Procedure Note Vinicio Skelton MD - 11/30/2014 Procedure: Transthoracic Echocardiogram Patient: ODETTE FRANCISCO(Age): 1960(54) Med Rec#: [id number] Sex: F [place] [facility] [place] Ht / Wt: 154(cm)/91(kg) Pt. Loc: Echo Lab BSA: 1.97 Study Date: 11/30/2014 Pt. Type: Outpatient Tape: Referring: Osmany Holloway Chairman President And Chief Executive Officer: Andriy Garland Diagnosis:CPT Code(s): Echo Full (93409), Spectral Doppler (12119), Color Doppler (44441), Indication(s): Edema Rhythm: Sinus HR BP 150/88 [...] Normal Mid-Posterolateral Normal Mid-Inferior Normal Mid-Inferoseptal Normal [employer]-Septal Normal [employer]-Anterior Normal [employer]-Lateral Normal [employer]-Inferior Normal [employer]-Tip Normal Chambers Value Units (Range) LV EF [...] 11/30/2014 09:40:46 Images reviewed and interpretation verified [facility] Cardiac Ultrasound Laboratory Osmany Overton MD ECHO ORDERABLES documented in this encounter Visit Diagnoses Diagnosis Edema Dyspnea Other dyspnea and respiratory abnormality Hypertension Unspecified essential hypertension Dyspnea Other dyspnea and respiratory abnormality Edema Dyspnea Other dyspnea and respiratory abnormality documented in this encounter Care Teams Legal Department Manager Relationship Specialty Start Date End Date Mary Alice Cage APRN PCP - General 10/12/11 11/12/18 documented as of this encounter
--- OUTSIDE RECORDS SUMMARY | 2024-03-17 18:33 | XMS_ITS | Encounter Summary ---
[place] [address] Care Team Providers Care Resident Engineer Name Role Phone GarvinMary Alice davis Rajendra ROY Primary Care Provider [phone] Reason for Visit * Reason Onset Date Comments Prior Authorization 11/26/2013 dexilant Encounter Details Date Type Department Care Team (Late st Contact Info) Description 11/26/2013 Telephone [place] [address] Debbie Skinner, sleeve presser operator (dexilant ) Social History Tobacco Use Types Packs/Day [...] encounter Miscellaneous Notes * Telephone Encounter - Debbie Skinner RMA - 11/26/2013 12:04 PM EDT renewal Medication: Dexilant Dosage: 60 mg Frequency & Route: take 1 by mouth daily Insurance & Phone #[place] [phone] ID #: Trialed (dosage, frequency): Prilosec, Aciphex Notes: KIARA approved for one year. documented in this encounter Plan of Treatment Not on file documented as of this encounter Visit Diagnoses Not on filedocumented in this encounter Care Teams Resident Engineer Relationship Specialty Start Date End Date Mary Alice Cage APRN PCP - General 10/12/11 11/12/18 documented as of this encounter
--- OUTSIDE RECORDS SUMMARY | 2024-03-17 18:33 | XMS_ITS | Encounter Summary ---
[place] [address] Care Team Providers Care Applications Engineer Manufacturing Name Role Phone Mary Alice Cage MANUELA Primary Care Provider [phone] Reason for Visit * Reason Comments Neck Pain Bilateral Shoulder Pain Encounter Details Date Type Department Care Team (Late st Contact Info) Description 10/05/2013 11:20 AM EST Office [place] [address] Rios Acuna MD [facility] [place] [address] Herniated nucleus pulposus, C6-7 Right, S/P C5-7 [...] Progress Notes * Rios Acuna MD - 10/05/2013 12:18 PM EST DATE OF SURGERY: 09/08/2013 SURGERY: C5-C7 ACDF. INTERVAL HISTORY: Ms. Mclaughlin returns today about four weeks out from surgery. She is doing well. Her right upper extremity pain has completely resolved. She is still having some neck pain. She is still having difficulty swallowing dry food, but she feels this is improving. She is taking about six hydrocodone per day and trying to wean down. She did manage to quit smoking for two weeks, though then she got back to smoking unfortunately. She denies any fevers, chills, or drainage from the wound. She has been wearing the collar. PHYSICAL EXAMINATION: General: The patient is comfortable, in no acute distress. Neck: She has a well-healed anterior incision. There is no drainage or surrounding erythema. Neurologic Exam: She has 5/5 strength in all upper extremity motor groups. She has no numbness. IMAGING: AP and lateral views of the cervical spine obtained today demonstrate no change in alignment of the grafts or the hardware. There is nothing to suggest hardware failure or loosening. ASSESSMENT/PLAN: Ms. Mclaughlin is about four weeks out from her C5-C7 anterior cervical diskectomy and fusion and doing quite well. Her right upper extremity radicular symptoms are resolved. Her swallowing is improving. I emphasized how important it is to refrain from nicotine in order to obtain a successful fusion. I told her she should wean out of the collar in two weeks, and I gave her a prescription for a soft collar to forklift picker at [facility]. I will plan to see her back in two months with flexion-extension x-rays at that time. documented in this [...] myelopathy documented in this encounter Care Teams Applications Engineer Manufacturing Relationship Specialty Start Date End Date Mary Alice Cage APRN PCP - General 10/12/11 11/12/18 documented as of this encounter
--- OUTSIDE RECORDS SUMMARY | 2024-03-17 18:33 | XMS_ITS | Encounter Summary ---
[place] [address] Care Team Providers Care Environmental Planner Name Role Phone MorrillMary Alice davis Rajendra ROY Primary Care Provider [phone] Reason for Referral * Consultation (Routine) - Closed Specialty Diagnoses / Procedures Referred By Chava t Referred To Contact Pain Management Diagnoses Radiculopathy of lumbar region Rios Acuna MD [facility] [place] [address] [facility] [address] [place] [address] Referral ID Status Reason Start Date Expiration Date V isits Requested Visits Authorized [id number] Closed Consult, Test & Treat 05/17/2014 11/13/2014 1 1 Reason for Visit * Reason Onset Date Comments Other 05/17/2014 response to inje ction. Encounter Details Date Type Department Care Team (Late st Contact Info) Description 05/17/2014 Telephone [place] [address] Milvia Fernandez, RN Other (response to injection.) Social History Tobacco Use Types Packs/Day Years [...] Telephone Encounter - Milvia Fernandez RN - 05/17/2014 2:38 PM EDT Patient returned call and she was informed of order for right greater trochanteric bursal injection, she is aware that Pain Clinic schedulers will contact her to book the injection, she should f/u byphone 2 weeks after the injection to report her response. * Telephone Encounter - Lacey Steiner RN - 05/17/2014 11:12 AM EDT Received call back from pt in follow up to injection. She reports 23% relief in her symptoms. She continues to experience what she describes as a clicking sensation in her back and right leg pain. Case was dicussed with Dr. Acuna. Call was placed back to the patient to make her Dr. Acuna is recommending she try a bursa injection next. Order as authorized by Dr. Acuna was placed. A message was left to inform patient of the above. documented in this encounter Plan of Treatment Scheduled Referrals Name Type Priority Associated Diagnoses Orde r Schedule Referral to Pain Clinic Outpatient Referral Routine Radiculopathy of lumbar region Ordered: 05/17/2014 documented as of this encounter Visit Diagnoses Diagnosis Radiculopathy of lumbar region- Primary Thoracic or lumbosacral neuritis or radiculitis, unspecified documented in this encounter Care Teams Environmental Planner Relationship Specialty Start Date End Date Mary Alice Cage APRN PCP - General 10/12/11 11/12/18 documented as of this encounter
--- OUTSIDE RECORDS SUMMARY | 2024-03-17 18:33 | XMS_ITS | Encounter Summary ---
Author Organization Formerly [facility] [place] [address] Care Team Providers Care Cap Sewer Name Role Phone DoloresMary Alice davis Rajendra ROY Primary Care Provider [phone] Reason for Visit * Reason Comments Back Pain Encounter Details Date Type Department Care Team (Latest Contact Info) Description 06/01/2014 9:35 AM EDT Procedure [place] [address] Kim Forbes [facility] [place] [address] Trochanteric bursitis, right Discharge Disposition: Home Social History Tobacco Use [...] Sign Reading Time Taken Comments Blood Pressure 122/76 06/01/2014 10:27 AM EDT Pulse 77 06/01/2014 10:27 AM EDT Temperature - - Respiratory Rate 18 06/01/2014 10:27 AM EDT Oxygen Saturation 98% 06/01/2014 10:27 AM EDT Inhaled Oxygen Concentration - - Weight 84.8 kg (187 lb) 06/01/2014 9:59 AM EDT Height 154.9 cm (5' 1) 06/01/2014 9:59 AM EDT Body Mass Index 35.33 06/01/2014 9:59 AM EDT documented in this encounter Patient Instructions * Patient Instructions* Lexie Awad RN - 06/01/2014 10:23 AM EDT Pain Management Center Discharge Instructions: You were seen by Dr. Kim Forbes DO who performed right trochanteric bursa injection. It is normal that the injection site [...] your bladder 4-6 hours after your procedure. You received the following medications: Depo-Medrol 80 mg, Lidocaine and Bupivacaine. During regular business hours, please phone the [...] or proceed to your local emergency department. Lexie Awad RN Special instructions documented in this encounter Progress Notes * Isabell Walker LPN - 06/01/2014 10:00 AM EDT Pre-Procedure Screening Questions: 1. Status: No 2. 3. 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 Yes 4. Patient taking antibiotics at present? No 5. NPO per Pain Management Center protocol? No 6. 7. Patient diabetic: No __ borderline (not treated with medications) __ managed with oral medications __ managed with injected medications 8. Patient routinely taking anticoagulants ? No Date stopped Current INR Patient Vital Signs documented in Doc Flowsheets associated with this encounter. Patient Discharge Instructions were reviewed with patient and copy provided to patient. documented in this encounter Procedure Notes * Kim Forbes DO - 06/03/2014 1:56 PM EDTAssociated Order(s): ARTHROCENTESIS,DRAIN/INJECT JOINT/BURSA Pre-Procedure Diagnose(s): Trochanteric bursitis, right PROCEDURE NOTE Right HIP TROCHANTERIC BURSA INJECTION Date of Service: 06/01/2014 Patient: Poppy Mclaughlin Provider: KIM FORBES DO, MPH COMMENTS: None Poppy Mclaughlin has been referred to the Pain Management Center for a right trochanteric bursa injection. Ms. Mclaughlin was interviewed and the medical record reviewed. There were no medical, pharmacologic, radiographic or other structural contraindications to attempting fluoroscopically guided trochantericbursa injection. Risks and potential side effects as well as potential benefit of the procedure were reviewed with Ms. Mclaughlin, and her voiced concerns were addressed. After verbal informed consent was obtained, the printed consent form was signed. Standard time-out procedure was performed. Ms. Mclaughlin was placed in the lateral recumbant position on the fluoroscopy table with the affected side up. Next, automated blood pressure cuff and pulse oximeter applied. The skin entry point for approaching right trochanteric bursa was identified under the most advantageous fluoroscopic view and marked. Following thorough Chlorhexadine preparation of the skin and draping and 1% lidocaine infiltration of the skin entry point and subcutaneous tissues, a 25 gauge spinal needle was placed under fluoroscopic guidance into the trochanteric bursa. 4 ml 0.5% Bupivicaine and 80mg Depomedrol was injected into the bursa with an initial reproduction of a significant component of the usual pain. Ms. Mclaughlin's vital signs were stable throughout the procedure and were as recorded in the docflowsheet by the nursing staff. If given, dosages of intravenous drugs for anxiolysis and analgesia were documented in MAR. Follow up plans and appointments were discussed with the Ms. Mclaughlin. Post procedure instruction wasgiven as documented in nursing documentation and having met discharge criteria, she was discharged from the Pain Management Center. COMMENTS: No complications. Call with any questions. Pre-procedure right leg pain VAS: 8/10; Post-procedure: 02/18 F/U with our office for Dr. Acuna I personally performed this entire procedure. Kim Forbes DO, MPH [facility]-subspecialty board certification in Pain Medicine Attending Physician-Pain Management CC: MARY ALICE DOMINGO, RED HAT LINUX ADMINISTRATOR [address] [place] [address] Rios Acuna MD [facility] [place] [address] documented in this encounter Plan of Treatment Pending Results Name Type Priority Associated Diagnoses Date /Time XR Fluoro OR c-arm storage only Imaging Routine 06/01/2014 12:46 PM EDT Scheduled Orders Name Type Priority Associated Diagnoses Orde r Schedule XR Fluoro OR c-arm storage only Imaging Routine Once PRN (for Ra diant use) for 1 Occurrences starting 06/01/2014 until 06/01/2014 documented as of this encounter Procedures Procedure Name Priority Date/Time Associated Diagnosis Comments ARTHROCENTESIS,DRAI N/INJECT JOINT/BURSA Routine 06/03/2014 1:58 PM EDT Trochanteric bursitis, right documented in this encounter Results * Bursa Inject - Major (Shoulder,hip,knee) (06/03/2014 1:58 PM EDT) Narrative Kim Forbes DO - 06/03/2014 1:58 PM EDT Kim Forbes DO ? 06/03/2014 ??1:58 PM PROCEDURE NOTE Right HIP TROCHANTERIC BURSA INJECTION Date of Service: ??06/01/2014 Patient: ??Poppy Mclaughlin ?? Provider: ??IKM FORBES DO, MPH COMMENTS: None Poppy Mclaughlin has been referred to the Pain Management Center for a right trochanteric bursa injection. ?? Ms. Mclaughlin was interviewed and the medical record reviewed. ?? There were no medical, pharmacologic, radiographic or other structural contraindications to attempting fluoroscopically guided trochanteric bursa injection. ??Risks and potential side effects as well as potential benefit of the procedure were reviewed with Ms. Mclaughlin, and her voiced concerns were addressed. After verbal informed consent was obtained, the printed consent form was signed. ??Standard time-out procedure was performed. Ms. Mclaughlin was placed in the lateral recumbant position on the fluoroscopy table with the affected side up. ??Next, automated blood pressure cuff and pulse oximeter applied. ??The skin entry point for approaching right trochanteric bursa was identified under the most advantageous fluoroscopic view and marked. ?? Following thorough Chlorhexadine preparation of the skin and draping and 1% lidocaine infiltration of the skin entry point and subcutaneous tissues, a 25 gauge spinal needle was placed under fluoroscopic guidance into the trochanteric bursa. 4 ml 0.5% Bupivicaine and 80mg Depomedrol was injected into the bursa with an initial reproduction of a significant component of the usual pain. Ms. Abdis vital signs were stable throughout the procedure and were as recorded in the docflowsheet by the nursing staff. ??If given, dosages of intravenous drugs for anxiolysis and analgesia were documented in MAR. Follow up plans and appointments were discussed with the Ms. Mclaughlin. ??Post procedure instruction was given as documented in nursing documentation and having met discharge criteria, she was discharged from the Pain Management Center. COMMENTS: No complications. Call with any questions. Pre-procedure right leg pain VAS: 8/10; Post-procedure: 02/18 F/U with our office for Dr. Acuna I personally performed this entire procedure. Kim Forbes DO, MPH [facility]-subspecialty board certification in Pain Medicine Attending Physician-Pain Management CC: MARY ALICE DOMINGO APRN [address] [place] [address] Rios Acuna MD [facility] [place] [address] Procedure Note Kim Forbes DO - 06/03/2014 1:56 PM EDT PROCEDURE NOTE Right HIP TROCHANTERIC BURSA INJECTION Date of Service: 06/01/2014 Patient: Poppy Mclaughlin Provider: KIM FORBES DO, MPH COMMENTS: None Poppy Mclaughlin has been referred to the Pain Management Center for aright trochanteric bursa injection. Ms. Mclaughlin was interviewed and the medical record reviewed. There were nomedical, pharmacologic, radiographic or other structural contraindicationsto attempting fluoroscopically guided trochanteric bursa injection. Risksand potential side effects as well as potential benefit of the procedurewere reviewed with Ms. Mclaughlin, and her voiced concerns were addressed.After verbal informed consent was obtained, the printed consent form wassigned. Standard time-out procedure was performed. Ms. Mclaughlin was placed in the lateral recumbant position on the fluoroscopytable with the affected side up. Next, automated blood pressure cuff andpulse oximeter applied. The skin entry point for approaching righttrochanteric bursa was identified under the most advantageous fluoroscopicview and marked. Following thorough Chlorhexadine preparation of the skinand draping and 1% lidocaine infiltration of the skin entry point andsubcutaneous tissues, a 25 gauge spinal needle was placed underfluoroscopic guidance into the trochanteric bursa. 4 ml 0.5% Bupivicaineand 80mg Depomedrol was injected into the bursa with an initialreproduction of a significant component of the usual pain. Ms. Mclaughlin's vital signs were stable throughout the procedure and were asrecorded in the docflowsheet by the nursing staff. If given, dosages ofintravenous drugs for anxiolysis and analgesia were documented in MAR. Follow up plans and appointments were discussed with the Ms. Mclaughlin. Postprocedure instruction was given as documented in nursing documentation andhaving met discharge criteria, she was discharged from the Pain ManagementCenter. COMMENTS: No complications. Call with any questions. Pre-procedure right leg pain VAS: 8/10; Post-procedure: 7/10 F/U with our office for Dr. Kalpana Overton personally performed this entire procedure. Kim Forbes DO, MPH [facility]-subspecialty board certification in Pain Medicine Attending Physician-Pain Management CC: MARY ALICE DOMINGO APRN [address] [place] [address] Rios Acuna MD [facility] [place] [address] Kim [place] V, DO PROCEDURE/MINOR SURG ICAL ORDERABLES documented in this encounter Visit Diagnoses Diagnosis Trochanteric bursitis, right documented in this encounter Administered Medications Inactive Administered Medications - up to 3 most recent administrations Medication Order MAR Action Action Date Dose Rate Site BUpivacaine (PF) (MARCAINE) 0.5 % (5 mg/mL) injection 20 mg 20 mg (4 mL), INTRABURSAL, ONCE, 1 dose, On Jessie 06/03/14 at 1415, 6 mL Wasted, Routine Given 06/01/2014 2:15 PM EDT 20 mg methylPREDNISolone acetate (depo-MEDROL) injection 80 mg 80 mg, Intra-articular, ONCE, 1 dose, On Jessie 06/03/14 at 1415, Routine Given 06/01/2014 2:15 PM EDT 80 mg documented in this encounter Care Teams Cap Sewer Relationship Specialty Start Date End Date Mary Alice Domingo APRN PCP - General 10/12/11 11/12/18 documented as of this encounter
--- OUTSIDE RECORDS SUMMARY | 2024-03-17 18:33 | XMS_ITS | Encounter Summary ---
Author Organization [facility] [address] Care Team Providers Care Grain Loader Name Role Phone Cb Florence Primary Care Provider [phone] Reason for Visit * Reason Onset Date Comments Medication Refill 09/15/2013 Encounter Details Date Type Department Care Team (Latest Contact Info) Description 09/15/2013 Refill Initial Mahnaz Fischer PA [facility] [place] [address] Social History Tobacco Use Types Packs/Day Years [...] on filedocumented in this encounter Care Teams Grain Loader Relationship Specialty Start Date End Date Cb Florence PA [address] [place], [place] [address] PCP - General Family Medicine 04/08/20 documented as of this encounter
--- OUTSIDE RECORDS SUMMARY | 2024-03-17 18:33 | XMS_ITS | Encounter Summary ---
[place] [address] Care Team Providers Care Litigation Assistant Name Role Phone ChaseMary Alice davis MANUELA Primary Care Provider [phone] Encounter Details Date Type Department Care Team (Late st Contact Info) Description 04/26/2014 Telephone [place] [id number] Lexie Awad RN Social History Tobacco Use Types Packs/Day [...] encounter Miscellaneous Notes * Telephone Encounter - Lexie Awad RN - 04/26/2014 12:09 PM EDT Poppy Mclaughlin :1960 Message left: I left a message on answering machine Ms. Mclaughlin at 12:09 PM regarding her upcoming Right transforaminal injection with Dr. Melchor Hartman DO. Message included the followin. 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 2. Following instructions left in the message: - Call the Pain Clinic Nurse at for: ~Procedure instructions. Lexie Awad RN documented in this encounter Plan of Treatment Not on file documented as of this encounter Visit Diagnoses Not on filedocumented in this encounter Care Teams Litigation Assistant Relationship Specialty Start Date End Date Mary Alice Cage APRN PCP - General 10/12/11 11/12/18 documented as of this encounter
--- OUTSIDE RECORDS SUMMARY | 2024-03-17 18:33 | XMS_ITS | Encounter Summary ---
Author Organization [facility] Address [facility] [place] [address] Care Team Providers Care Coutierier Name Role Phone [place] Mary Alice Drew APRN Primary Care Provider [phone] Encounter Details Date Type Department Care Team (Latest Contact Info) Description 03/15/2014 10:02 AM EDT - 03/15/2014 11:59 PM EDT Hospital Encounter XRay at [address] [place] [address] Herniated nucleus pulposus, C6-7 Right, S/P C5-7 [...] Sig Dispensed Refills Start Date End Date Inhalational Spacing Device Spcr 2 puffs by Misc.(Non-Drug; Combo Route) route daily. promethazine (PHENERGAN) 25 mg tablet Take 25 mg by mouth every 6 hours as needed. MULTIVITAMIN ORAL Take 2 tablets by mouth daily. ASCORBATE CALCIUM (VITAMIN C ORAL) Take 1 tablet by mouth daily. cholecalciferol, Vitamin D3, 400 unit tablet Take 400 Units by mouth daily. loratadine (CLARITIN) 10 mg tabletIndications:Multi ple nodules of lung Take 10 mg by mouth daily. rifaximin (XIFAXAN) 200 mg tablet Take 400 mg by mouth 3 times daily. 04/26/2014 fluconazole (DIFLUCAN) 100 mg tablet Take 1 tablet by mouth daily. Take one a day for three days. 3 tablet 1 12/04/2013 04/26/2014 fluticasone (FLONASE) 50 mcg/actuation nasal spray USE [...] by mouth. 09/13/2017 pseudoephedrine (SUDAFED) 30 mg tabletIndications:Multi ple nodules of lung Take 30 mg by mouth every 4 hours as needed. 08/11/2015 guaiFENesin (ROBITUSSIN) 100 mg/5 mL syrupIndications:Multip le nodules of lung Take 200 mg by mouth 3 times daily as needed. 12/20/2016 citalopram (CELEXA) 40 mg tablet Take 1 tablet by mouth daily. 90 tablet 3 08/19/2012 07/14/2021 documented as of this encounter Plan of Treatment Not on file documented as of this encounter Procedures Procedure Name Priority Date/Time Associated Diagnosis Comments XR CERVICAL SPINE FLEXION EXTENSION ONLY Routine 03/15/2014 10:18 AM EDT Herniated nucleus pulposus, C6-7 Right, S/P C5-7 ACDF 09/08/13 documented in this encounter Results * XR cervical spine flexion extension ONLY (03/15/2014 10:18 AM EDT) Anatomical Region Laterality Modality C-spine N/A Radiographic Martha ging 03/15/2014 10:1 8 AM EDT Narrative 03/15/2014 11:53 AM EDT Examination C Spine Flexion Extension Only Clinical History s/p acdf Comparison December 02, 2013. Technique Findings C1 to bottom of C7 are visualized. The c 7 T1 alignment is difficult to evaluate due to overlap. Unchanged alignment and appearance of anterior cervical fusion across c 5 and c 7. ??The graft material at these 2 disc levels are incorporated. ??No radiolucency surrounding the fusion hardware. ??Unchanged disc space narrowing at C3-C4 and C4-C5 level. C3-4: 2 mm retrolisthesis of C3 on 4 is seen only on the extension image. ??No prevertebral soft tissue swelling. Impression ? 1. Uncomplicated anterior cervical fusion across C5 and C7. ? 2. 2 mm motion at C3- 4 level is likely related to degenerative disc disease. Procedure Note Marylin Elias MD - 03/15/2014 Examination C Spine Flexion Extension Only Clinical History s/p acdf Comparison December 02, 2013. Technique Findings C1 to bottom of C7 are visualized. The c 7 T1 alignment is difficult to evaluate due to overlap. Unchanged alignment and appearance of anterior cervical fusion across c 5and c 7. The graft material at these 2 disc levels are incorporated. No radiolucency surrounding the fusion hardware. Unchanged disc spacenarrowing at C3-C4 and C4-C5 level. C3-4: 2 mm retrolisthesis of C3 on 4 is seen only on the extension image.No prevertebral soft tissue swelling. Impression 1. Uncomplicated anterior cervical fusion across C5 and C7. 2. 2 mm motion at C3- 4 level is likely related to degenerative disc disease. Rios Acuna MD IMG DX ORDERABLES documented in this encounter Visit Diagnoses Diagnosis Herniated nucleus pulposus, C6-7 Right, S/P C5-7 ACDF 09/08/13 Displacement of cervical intervertebral disc without myelopathy documented in this encounter Care Teams Coutierier Relationship Specialty Start Date End Date Mary Alice Cage APRN PCP - General 10/12/11 11/12/18 documented as of this encounter
--- OUTSIDE RECORDS SUMMARY | 2024-03-17 18:33 | XMS_ITS | Encounter Summary ---
Author Organization [facility] [address] Care Team Providers Care Appeals Coordinator Name Role Phone Mary Alice Cage APRN Primary Care Provider [phone] Reason for Visit * Reason Comments Medication Refill Encounter Details Date Type Department Care Team (Late st Contact Info) Description 10/21/2013 Ref[place] [address] Samra Goodson APRN [facility] [place] [address] Social History Tobacco Use Types Packs/Day Years [...] on filedocumented in this encounter Care Teams Appeals Coordinator Relationship Specialty Start Date End Date Mary Alice Cage APRN PCP - General 10/12/11 11/12/18 documented as of this encounter
--- OUTSIDE RECORDS SUMMARY | 2024-03-17 18:33 | XMS_ITS | Encounter Summary ---
[place] [address] Care Team Providers Care Lugger Name Role Phone Mary Alice Cage APRN Primary Care Provider [phone] Reason for Visit * Reason Onset Date Comments Medication Refill 06/11/2014 Encounter Details Date Type Department Care Team (Late st Contact Info) Description 06/11/2014 Refill [place] [address] Renetta Greenfield MA GASTROENTEROLOGY DEPT Social History [...] on filedocumented in this encounter Care Teams Lugger Relationship Specialty Start Date End Date Mary Alice Cage APRN PCP - General 10/12/11 11/12/18 documented as of this encounter
--- OUTSIDE RECORDS SUMMARY | 2024-03-17 18:33 | XMS_ITS | Encounter Summary ---
Author Organization [facility] [place] [address] Care Team Providers Care Director Of Medical Services Name Role Phone YazooMary Alice davis MANUELA Primary Care Provider [phone] Encounter Details Date Type Department Care Team (Late st Contact Info) Description 05/17/2014 Orders [place] [address] José Manuel Irwin MD [facility] [place] [address] Social History Tobacco Use Types Packs/Day Years [...] FILM LIBRARY STORAGE ONLY DX CHEST Routine 05/17/2014 8:49 AM EDT documented in this encounter Results * Film Library- Storage only DX Chest (05/17/2014 8:49 AM EDT) Anatomical Region Laterality Modality Other 05/17/2014 8:49 AM EDT Narrative 07/29/2014 8:54 AM EST This is a Non-reportable exam Procedure Note NELLA, UNSIGNED REPORT - 07/29/2014 This is a Non-reportable exam José Manuel Irwin MD [facility] [place] ERABLES documented in this encounter Visit Diagnoses Not on filedocumented in this encounter Care Teams Director Of Medical Services Relationship Specialty Start Date End Date Mary Alice Cage APRN PCP - General 10/12/11 11/12/18 documented as of this encounter
--- OUTSIDE RECORDS SUMMARY | 2024-03-17 18:33 | XMS_ITS | Encounter Summary ---
[place] [address] Care Team Providers Care Office Specialist Name Role Phone NilesMary Alice Rajendra ROY Primary Care Provider [phone] Encounter Details Date Type Department Care Team (Latest Contact Info) Description 04/07/2014 1:53 PM EDT - 04/07/2014 11:59 PM EDT [place] [address] CLIN[address], DR CHILD Herniated nucleus pulposus, C6-7 Right, S/P C5-7 [...] 08/19/2012 07/14/2021 documented as of this encounter Miscellaneous Notes * Miscellaneous - Provider, Scanning - 04/22/2014 11:43 AM EDT documented in this encounter Plan of Treatment Not on file documented as of this encounter Procedures Procedure Name Priority Date/Time Associated Diagnosis Comments MRI LUMBAR SPINE WITHOUT CONTRAST Routine 04/07/2014 3:04 PM EDT Herniated nucleus pulposus, C6-7 Right, S/P C5-7 ACDF 09/08/13 documented in this encounter Results * MRI lumbar spine without contrast (04/07/2014 [...] of the clinical situation. (Reference-Jarvik et al, [id number]) Findings: (prevalence in patients without low back [...] myelopathy documented in this encounter Care Teams Office Specialist Relationship Specialty Start Date End Date Mary Alice Cage APRN PCP - General 10/12/11 11/12/18 documented as of this encounter
--- OUTSIDE RECORDS SUMMARY | 2024-03-17 18:33 | XMS_ITS | Encounter Summary ---
[facility] Organization [facility] [address] Care Team Providers Care Wick Tender Name Role Phone Mary Alice Cage APRN Primary Care Provider [phone] Reason for Visit * Reason Onset Date Comments Medication Refill 12/04/2013 Encounter Details Date Type Department Care Team (Late st Contact Info) Description 12/04/2013 [place] [address] Justin Starkey MD [facility] [place] [address] Social History Tobacco Use Types Packs/Day Years [...] on filedocumented in this encounter Care Teams Wick Tender Relationship Specialty Start Date End Date Mary Alice Cage APRN PCP - General 10/12/11 11/12/18 documented as of this encounter
--- OUTSIDE RECORDS SUMMARY | 2024-03-17 18:33 | XMS_ITS | Encounter Summary ---
[place] [address] Care Team Providers Care Braider Operator Name Role Phone AroostookMary Alice davis MANUELA Primary Care Provider [phone] Encounter Details Date Type Department Care Team (Late Contact Info) Description 05/28/2014 Telephone [place] [phone] Lexie Awad RN Social History Tobacco Use [...] encounter Miscellaneous Notes * Telephone Encounter - Colleen Valenzuela LPN - 05/31/2014 8:52 AM EDT Poppy Mclaughlin :1960 Contact made with patient: I spoke to Ms. Mclaughlin at 8:52 AM regarding her upcoming Right Greater Trochanteric bursal injectionscheduled on 06/01/14 (date) scheduled at 10:05 (time) with Dr. Melchor Hartman DO. Medication and Allergy reconciliation: 1. Changes were made in the telephone encounter per patient; marked as reviewed, and closed. 2. Patient confirmed no IVP dye allergy. 3. Have you had any steroid injections anywhere in your body within the last two weeks? no Arrival time: The patient was instructed to arrive at 9:35 (30 minutes prior to procedure start time - 60 minutesprior for RF patients with a pacemaker) on 06/01/14 (date of procedure). Risk Control Field Representative: The patient was reminded that they need to have a clamp truck driver accompany them to her procedure who will remain onsite. Antibiotics/Skin assessment/Illness symptoms/Pain level assessment : 1. The patient confirmed that she is not taking antibiotics at this time. 2. The patient confirmed that she does not have any rashes, blisters, or skin breakdown on their body. 3. The patient confirmed that she does not have any active infections. 4. The patient confirmed that she does not have any symptoms of illness: fever, chills, cold, flu, nausea, vomiting. 5. The patient confirmed that she isstill experiencing significant pain. (Significant pain is defined as interfering with performing ADL.) Pain and Anti-anxiety Medications: 1. Nerve Block Procedure Patients: Patient was instructed NOT to take their pain medications on theday of the procedure and anti-anxiety medications are part of their daily medication regiment; theycan and should continue taking that medication. 2. All Other Procedure Patients: The patient was instructed that if they take daily pain or anti-anxiety medications, they can and should continue taking on the day of the procedure. Does patient have history of any diagnosed bleeding disorders: No Anticoagulants: No Diabetic instructions: Patient was advised to inform their PCP regarding safe fasting and the NPO requirements for their upcoming procedure and given the [facility] Nurse Triage Line . Implant: Patient has pacemaker/defibrillator: No Prior to checking in at [employer], please be sure to empty your bladder. Patient confirmed understanding that if they do not follow the above their instructions, their procedure is likely to be cancelled. Colleen Valenzuela LPN * Telephone Encounter - Colleen Valenzuela LPN - 05/31/2014 8:25 AM EDT Poppy Mclaughlin :1960 Message left: I left a message on answering machine Ms. Mclaughlin at 8:25 AM regarding her upcoming Right greater trochanteric bursal injection with Dr. Melchor Hartman DO. Message included the followin. Patient instructed to arrive at 9:35 (30 minutes prior to procedure start time) on 06/01/14 (date of procedure) with their clamp truck driver. 2. Following instructions left in the message: - Bring Updated list of medications including dosage and reason for taking. - Call the Pain Clinic Nurse at for: ~Procedure instructions. ~If you are taking antibiotics. ~If you have any signs or symptoms of infection, cold or flu. ~If you have any skin breakdown (rashes, cysts, or abscess.) ~If you are taking anticoagulants / blood thinners (Plavix, Pletal, Lovenox, Coumadin, etc). ~If you had any steroid injections anywhere in your body within the last two weeks? Colleen Valenzuela LPN * Telephone Encounter - Lexie Awad RN - 05/28/2014 8:36 AM EDT Poppy Mclaughlin :1960 Message left: I left a message on answering machine Ms. Mclaughlin at 8:36 AM regarding her upcoming Right greater trochanteric bursal injection with Dr. Melchor Hartman DO. Message included the following: - Call the Pain Clinic Nurse at Lexie Awad RN documented in this encounter Plan of Treatment Not on file documented as of this encounter Visit Diagnoses Not on filedocumented in this encounter Care Teams Braider Operator Relationship Specialty Start Date End Date Mary Alice Cage APRN PCP - General 10/12/11 11/12/18 documented as of this encounter
--- OUTSIDE RECORDS SUMMARY | 2024-03-17 18:33 | XMS_ITS | Encounter Summary ---
[place] [address] Care Team Providers Care Mingle Operator Name Role Phone MccookMary Alice davis MANUELA Primary Care Provider [phone] Reason for Visit * Reason Comments Low Back Pain Bilateral Leg Pain Encounter Details Date Type Department Care Team (Latest Contact Info) Description 07/07/2014 10:00 AM EST Office [place] [address] Rios Acuna MD [facility] [place] [address] Radiculopathy of lumbar region Discharge Disposition: Home [...] Progress Notes * Rios Acuna MD - 07/07/2014 10:57 AM EST INTERVAL HISTORY: Ms. Mclaughlin returns to see me today to discuss her back pain and right L4 radiculopathy. It has been going on for many months at this point. The pain radiates from low back to her right buttock, lateral thigh over her anterior knee into the right medial leg. She underwent a right L4-L5 transforaminal epidural steroid injection that she feels gave her about 10% relief for no more than a couple of weeks. She underwent a right greater trochanteric bursal injection that improved her pain locally, but had no effect on her pain radiating distal down the leg. She has been taking ibuprofen and Tylenol. She has been working on smoking cessation. She feels at this point that nonoperative has failed, and she wants surgery to address her radicular pain. PHYSICAL EXAMINATION: General: The patient is comfortable, in no acute distress. Back: Her back is somewhat tender to palpation in the midline, over her right SI joint and right sciatic notch. Neurologic Exam: She has 4+/5 strength of her right ankle dorsiflexion and EHL. She has a normal sensory exam. Reflexes are 1/4 at the knees and ankles and symmetric. Straight leg raise is positive on the right. IMAGING: Plain films of the lumbar spine were obtained today. These demonstrate mild apex to the left lumbar curve and marked degenerative changes in the lower lumbar spine. She may have a subtle, grade 1 degenerative listhesis of L5 on S1. MRI of the lumbar spine from 04/07/2014 demonstrates some degenerative changes in the lower lumbar spine. At L4-L5, she has a foraminal and far lateral disk herniation that is primarily lateral to the pedicle and is compressing the exiting L4 root. She has no other areas of significant nerve compression. She does have an osteophyte emanating from the left L5-S1 facet joint, but it is not causing significant nerve compression. ASSESSMENT/PLAN: Ms. Mclaughlin has had many months of right L4 radiculopathy in the setting of a right L4-L5 far lateral disk herniation. She has failed to improve despite extensive nonoperative treatment. She wants to proceed with surgery, which will be a right L4-L5 far lateral diskectomy by the Silvano approach. The planned surgery was demonstrated on the spine model. Consent was obtained. Risks were documented on the consent form. She understands that we will be working around the sensitive dorsal root ganglion and sometimes symptoms are increased after surgery transiently. She understands that surgery is primarily need to address her radiculopathy and is unlikely to improve her back pain much. We will try to do this as a same day surgery. Risks were documented in the consent form. She will also see her primary care doctor for a history and physical prior to the surgery. She will need preadmission testing. We will schedule surgery at her convenience. documented in this encounter Plan of Treatment Not on file documented as of this encounter Procedures Procedure Name Priority Date/Time Associated Diagnosis Comments ECG SCAN 08/10/2014 12:00 AM EST TRANSPEDICULAR LUMBAR DCOMPRESS SPINAL CORD/EQUINA/NERVE ROOTS 1LVL Routine 07/07/2014 10:54 AM EST Radiculopathy of lumbar region documented [...] Rios Acuna MD IMG DX ORDERABLES * (ABNORMAL) Prothrombin Time (08/17/2014 10:17 AM EST) Prothrombin Time 12.0(L) 12.5 - 15.5 sec [facility] Comment: [facility] Transfusion Committee Guidelines: INR less than [...] intervals supplied above were not validated at [facility]. Results from pediatric patients should be interpreted [...] the following links into your internet browser. [email or web address] Blood specimen (specimen) 08/17/2014 10:17 AM EST 08/17/2014 10:25 AM EST Narrative Resulting Agency Comment Spec In Lab Rios Acuna MD CHEMISTRY ORDERABLES [facility] * SCAN DOC: ECG (08/10/2014 12:00 AM EST) Scanning Provider MEDIA MGR SCAN EXT O RDR/RSLT documented in this encounter Visit Diagnoses Diagnosis Radiculopathy of lumbar region Thoracic or lumbosacral neuritis or radiculitis, unspecified Radiculopathy of lumbar region Thoracic or lumbosacral neuritis or radiculitis, unspecified documented in this encounter Care Teams Mingle Operator Relationship Specialty Start Date End Date Mary Alice Cage APRN PCP - General 10/12/11 11/12/18 documented as of this encounter
--- OUTSIDE RECORDS SUMMARY | 2024-03-17 18:33 | XMS_ITS | Encounter Summary ---
[place] [address] Care Team Providers Care Optical Instrument Specialist Name Role Phone Niles Mary Alicepham Drew APRN Primary Care Provider [phone] Reason for Referral * Consultation (Routine) - Closed Specialty Diagnoses / Procedures Referred By Chava alejo Referred To Contact Pain Management Diagnoses Radiculopathy of lumbar region Rios Acuna MD [facility] [place] [address] [facility] [address] [place] [address] Referral ID Status Reason Start Date Expiration Date V isits Requested Visits Authorized [id number] Closed Assume Subset of Care 04/19/2014 10/16/2014 1 1 Reason for Visit * Reason Onset Date Comments Other 04/19/2014 Encounter Details Date Type Department Care Team (Late st Contact Info) Description 04/19/2014 Telephone [place] [address] Lacey Steiner, RN Other Social History Tobacco Use Types Packs/Day Years [...] Miscellaneous Notes * Telephone Encounter - Lacey Steiner RN - 04/19/2014 3:52 PM EDT Received call from Poppy stating she would like to proceed with the injection as discussed with Dr. Acuna. Injection referral was placed as authorized by Dr. Acuna. documented in this encounter Plan of Treatment Scheduled Referrals Name Type Priority Associated Diagnoses Orde r Schedule Referral to Pain Clinic Outpatient Referral Routine Radiculopathy of lumbar region Ordered: 04/19/2014 documented as of this encounter Visit Diagnoses Diagnosis Radiculopathy of lumbar region- Primary Thoracic or lumbosacral neuritis or radiculitis, unspecified documented in this encounter Care Teams Optical Instrument Specialist Relationship Specialty Start Date End Date Mary Alice Cage APRN PCP - General 10/12/11 11/12/18 documented as of this encounter
--- OUTSIDE RECORDS SUMMARY | 2024-03-17 18:33 | XMS_ITS | Encounter Summary ---
[place] [address] Care Team Providers Care Medication Aide Name Role Phone Mary Alice Cage MANUELA Primary Care Provider [phone] Reason for Visit * Reason Onset Date Comments Medication Refill 10/01/2013 hydrocodone/ac etaminophen 5/325mg. Encounter Details Date Type Department Care Team (Late st Contact Info) Description 10/01/2013 Refill [facility] at [place] [id number] Rios Acuna MD [facility] [place] [address] Social History Tobacco Use Types Packs/Day Years [...] Telephone Encounter - Milvia Fernandez RN - 10/02/2013 4:11 PM EST Patient contacted regarding request of refill of Hydrocodone/acetaminophen 5/325 mg, she has been taking 1-2 tabs Q 6 hours, during the day she tries to use just one tab but needs 2 tabs during the night. Patient is s/p 09/08/13 C5-7 ACDF. Above request discussed with ALMA Morgan in Dr. Acuna's absence. He authorized refill changing to 1-2 tabs Q 6 hours, max of 6 tabs in 24 hours. Patient was contacted and informed of the above, discussed change to 1-2 tabs Q 8 hours, max of 6 tabs in 24 hours and she stated understanding. documented in this encounter Plan of Treatment Not on file documented as of this encounter Visit Diagnoses Not on filedocumented in this encounter Care Teams Medication Aide Relationship Specialty Start Date End Date Mary Alice Cage APRN PCP - General 10/12/11 11/12/18 documented as of this encounter
--- OUTSIDE RECORDS SUMMARY | 2024-03-17 18:33 | XMS_ITS | Encounter Summary ---
[facility] [address] Care Team Providers Care Medical Supervisor Name Role Phone Mary Alice Cage APRN Primary Care Provider [phone] Reason for Visit * Reason Onset Date Comments Medication Refill 12/04/2013 Encounter Details Date Type Department Care Team (Late st Contact Info) Description 12/04/2013 Ref[place] [address] Justin Starkey MD [facility] DR GASTROENTEROLOGY [place] [address] Social History Tobacco Use Types Packs/Day Years [...] on filedocumented in this encounter Care Teams Medical Supervisor Relationship Specialty Start Date End Date MaryA lice Cage APRN PCP - General 10/12/11 11/12/18 documented as of this encounter
--- OUTSIDE RECORDS SUMMARY | 2024-03-17 18:33 | XMS_ITS | Encounter Summary ---
Author Organization [facility] [place] [address] Care Team Providers Care Pediatric Critical Care Nurse Name Role Phone Mary Alice Domingo MANUELA Primary Care Provider [phone] Reason for Visit * Reason Comments Follow-up Encounter Details Date Type Department Care Team (Late st Contact Info) Description 11/24/2013 1:00 PM EDT Follow-Up [place] [address] Justin Starkey MD [facility] [address] [place] [address] IBS (irritable bowel syndrome) (Primary Dx); Diarrhea Discharge Disposition: Home Social History Tobacco Use [...] Sign Reading Time Taken Comments Blood Pressure 150/86 11/24/2013 12:56 PM EDT Pulse 95 11/24/2013 12:56 PM EDT Temperature - - Respiratory Rate 18 11/24/2013 12:56 PM EDT Oxygen Saturation - - Inhaled Oxygen Concentration - - Weight 71.2 kg (157 lb) 11/24/2013 12:56 PM EDT Height - - Body Mass Index 29.66 09/08/2013 9:54 AM EST documented in this encounter Progress Notes * Justin Starkey MD - 11/29/2013 11:08 AM EDT GI FOLLOWUP Poppy Mclaughlin Female, 53 yrs, 1960 PCP: MARY ALICE DOMINGO TWIST TESTER: NONE REASON FOR VISIT PRIOR OFFICE VISITS REASON(S) I FOLLOW PATIENT This is a 53-year-old woman who returns today in followup. LAST VISIT I first saw her for a third opinion on 03/10/13. Her major issue at that time was that of abdominal gas and bloating. I recommended dietary changes and a trial of neomycin followed by a probiotic. Shereports today that none of these changes were effective. ON REVIEW TODAY At present, she has symptoms consistent with IBS with diarrhea. She describes lower abdominal cramps, spasms, significant urgency. She has two to three episodes of fecal incontinence a week associated with urgency. She typically has four to six loose, watery, non-bloody bowel movements per day. Shecontinues with gas and bloating. Her weight is 157 pounds. We reviewed her extensive testing to date and prior medication trials. A treatment plan is outlined below. ALLERGIES/ADR See eD-H; reviewed. MEDICATIONS See eD-H; reviewed. PAST MEDICAL HISTORY 1. See prior records. 2. IBS with diarrhea. 3. 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 5. Reflux. PAST SURGICAL HISTORY 1. Emergency hernia repair May 2011, [place]. 2. Cholecystectomy 11/24/12. 3. Spinal fusion surgery August 2013. HABITS Positive tobacco. FAMILY HISTORY Noncontributory. RECENT TESTING 1. Colonoscopy, [facility]: normal. 2. Upper endoscopy [facility]: normal. 3. CT scan [facility]: normal. 4. Abdominal ultrasound: gallstones noted. 5. 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 6. Breath hydrogen test 05/13/12: no evidence of bacterial overgrowth; methane overproduction. MEDICATION/DIET TRIALS 1. Neomycin - no help. 2. Rifaximin - some help with gas and bloating. 3. Align x90 days - no help. 4. Low-FODMAP diet - no help. 5. Bentyl - helps esophageal spasms. RECOMMENDATIONS AND PLANS 1. IBS with diarrhea. Start Lomotil and increase from once daily to four times daily over the next month; prescription provided. 2. Gas and bloating. Retrial of rifaximin at 550 mg p.o. t.i.d. for 10 days. 3. Continue Dexilant each day for reflux; a new prescription was provided. 4. For nutcracker esophagus, continue Bentyl four times daily; a new prescription was provided. 5. Follow up with PCP as scheduled. 6. She will call in one month. If symptoms persist, consider cholestyramine for her diarrhea. TIME SPENT WITH PATIENT Total Minutes: 30 Minutes of Tflb-cn-Nzfb Counseling: The entire visit was spent in rlqj-bj-[id number] counseling. I will see the patient back in followup in six months. Justin Starkey, PhD, MD grey [place]cher, [facility] [employer] Section of Gastroenterology and Hepatology [facility] [address] V: [phone] F: [phone] MICKY/mian CC/EC: PCP - staff msg copy 11/27/13 documented in this encounter Plan of Treatment Not on file documented as of this encounter Visit Diagnoses Diagnosis IBS (irritable bowel syndrome)- Primary Irritable bowel syndrome Diarrhea documented in this encounter Care Teams Pediatric Critical Care Nurse Relationship Specialty Start Date End Date Mary Alice Domingo APRN PCP - General 10/12/11 11/12/18 documented as of this encounter
--- OUTSIDE RECORDS SUMMARY | 2024-03-17 18:33 | XMS_ITS | Encounter Summary ---
[place] [address] Care Team Providers Care Color Card Maker Name Role Phone HamlinMary Alice davis MANUELA Primary Care Provider [phone] Encounter Details Date Type Department Care Team (Late st Contact Info) Description 05/05/2014 Telephone [place] [phone] Erika Etienne, RN Social History Tobacco Use Types Packs/Day [...] encounter Miscellaneous Notes * Telephone Encounter - Erika Etienne RN - 05/05/2014 10:56 AM EDT Ms. Mclaughlin called to report that since her TF injection of 04/29/2014 she has had increased urination which began a few days ago. No incontinence, loss of control,no urgency,fever or burning on urination. I told her that occasionally steroids can cause water retention and that she is possibly passing additional fluid. I instructed her to go to ED for any symptoms of incontinence. documented in this encounter Plan of Treatment Not on file documented as of this encounter Visit Diagnoses Not on filedocumented in this encounter Care Teams Color Card Maker Relationship Specialty Start Date End Date Mary Alice Cage APRN PCP - General 10/12/11 11/12/18 documented as of this encounter
--- OUTSIDE RECORDS SUMMARY | 2024-03-17 18:33 | XMS_ITS | Encounter Summary ---
Author Organization [facility] [address] Care Team Providers Care Sba Business Development Officer Name Role Phone Mary Alice Cage APRN Primary Care Provider [phone] Reason for Visit * Reason Comments Medication Refill Encounter Details Date Type Department Care Team (Late st Contact Info) Description 10/21/2013 Refill [place] [address] Malia Vidal [facility] DR [place]STR[place] [address] Social History Tobacco Use Types Packs/Day Years [...] on filedocumented in this encounter Care Teams Sba Business Development Officer Relationship Specialty Start Date End Date Mary Alice Cage APRN PCP - General 10/12/11 11/12/18 documented as of this encounter
--- OUTSIDE RECORDS SUMMARY | 2024-03-17 18:33 | XMS_ITS | Encounter Summary ---
[place] [address] Care Team Providers Care Histologic Aide Name Role Phone [place] Mary Alice Rajendra ROY Primary Care Provider [phone] Reason for Visit * Reason Onset Date Comments Neck And Arm Pain With Numbness 04/05/2014 bilat subsequent to slipping and falling three steps on bleacher Encounter Details Date Type Department Care Team (Late st Contact Info) Description 04/05/2014 Telephone [place] [address] Chen Valencia, RN Neck And Arm Pain With Numbness (bilat subsequent to slipping and falling three steps on bleacher) Social History Tobacco Use Types Packs/Day Years [...] Telephone Encounter - Chen Valencia, RN - 04/05/2014 2:04 PM EDT Received call from pt who is s/p ACDF C5-7 09/08/13. Pt was seen earlier this month at which time Xray was performed; doing well; Xray indicated fusion. Pt has a pending appt Saturday with Dr Corbettwith a LS spine MRI prior as at the last appt pt mentioned LB problems and Dr Corbett agreed to work this up. Pt calling this am to report that last evening she slipped on a bleacher; slipped down approx 3 steps onto the ground, hitting her back and shoulder along the way; jarring her self throughout the fall. Patient reports that since the fall she has had bilat upper extremity numbness and tingling; denies weakness. Some neck and shoulder discomfort. Ger reports increasing back pain and some intermitting increase in lower extremity N/T (reported previous to fall was having some intermittent leg N/T); denies leg weakness. Advised pt that following such a fall it would not be unusual for anyone to experience some neck, shoulder or back discomfort; advised pt that I would provide Dr corbett with an update; given her previous neck surgery to include a fusion would check with Dr Corbett to see if he wants any imaging inadvance of Sat's appt. 4:40 Call returned to pt; left VM message advising that I had reviewed above with Dr Corbett; that he would like to evaluate her as scheduled on Sat. During the eval of her LS spine, he would access her cervical spine and new N/T post fall; following evaluation he would determine next steps, including determining if any add'l imaging was needed. documented in this encounter Plan of Treatment Not on file documented as of this encounter Visit Diagnoses Not on filedocumented in this encounter Care Teams Histologic Aide Relationship Specialty Start Date End Date Mary Alice Cage APRN PCP - General 10/12/11 11/12/18 documented as of this encounter
--- OUTSIDE RECORDS SUMMARY | 2024-03-17 18:33 | XMS_ITS | Encounter Summary ---
[place] [address] Care Team Providers Care Finance Analyst Name Role Phone Mary Alice Cage APRN Primary Care Provider Encounter Details Date Type Department Care Team (Late st Contact Info) Description 12/04/2013 [place] [address] Rosaura Wolf, [facility] Social History Tobacco Use Types Packs/Day Years [...] on filedocumented in this encounter Care Teams Finance Analyst Relationship Specialty Start Date End Date Mary Alice Cage APRN PCP - General 10/12/11 11/12/18 documented as of this encounter
--- OUTSIDE RECORDS SUMMARY | 2024-03-17 18:33 | XMS_ITS | Encounter Summary ---
[place] [address] Care Team Providers Care Director Of Exhibits Name Role Phone [place]Mary Alice davis MANUELA Primary Care Provider [phone] Encounter Details Date Type Department Care Team (Late st Contact Info) Description 06/17/2014 Telephone [place] [address] Nina Hollingsworth, RN DEPT OF GASTROENTEROLOGY Social History Tobacco Use Types Packs/Day Years [...] Telephone Encounter - Nina Julian RN - 06/17/2014 2:[address] Starkey We should have her see PT. She can come here and I will then write the referral. Or francisco j PT in [place], if she wants (but I believe we're closer). That's the next step. Just let me know if I need to do the referral. Patient questions regarding pelvic floor PT, diarrhea, gas and bloating Explained rationale with pelvic floor PT, she states she will speak with her regarding this, and will let me know how she wishes to proceed. Patient states while on tetracycline for 10 days for gas and bloating in May she felt slightly better, but now feels exactly the same. She also mentions she has ongoing back problems that she is seeing Ortho for, wonders if this is contributing? Please advise. documented in this encounter Plan of Treatment Not on file documented as of this encounter Visit Diagnoses Not on filedocumented in this encounter Care Teams Director Of Exhibits Relationship Specialty Start Date End Date Mary Alice Cage APRN PCP - General 10/12/11 11/12/18 documented as of this encounter
--- OUTSIDE RECORDS SUMMARY | 2024-03-17 18:33 | XMS_ITS | Encounter Summary ---
[place] [address] Care Team Providers Care Table Saw Operator Name Role Phone Mary Alice Cage Rajendra ROY Primary Care Provider [phone] Reason for Visit * Reason Onset Date Comments Prior Authorization 11/30/2013 xifaxan Encounter Details Date Type Department Care Team (Late st Contact Info) Description 11/30/2013 Telephone [place] [address] Debbie Skinner, java manager (xifaxan ) Social History Tobacco Use Types Packs/Day [...] Notes * Telephone Encounter - Debbie Skinner Jeancarlos - 11/30/2013 1:02 PM EDT Medication: xifaxan Dosage: 200 mg Frequency & Route: 400 tid for 10 days Insurance & Phone #: [place] [id number] ID #: [id number] Trialed (dosage, frequency): neomycin Notes: PA approved - pharmacy informed. documented in this encounter Plan of Treatment Not on file documented as of this encounter Visit Diagnoses Not on filedocumented in this encounter Care Teams Table Saw Operator Relationship Specialty Start Date End Date Mary Alice Cage APRN PCP - General 10/12/11 11/12/18 documented as of this encounter
--- OUTSIDE RECORDS SUMMARY | 2024-03-17 18:33 | XMS_ITS | Encounter Summary ---
Author Organization [facility] [place] [address] Care Team Providers Care Real Estate Officer Name Role Phone [place]Mary Alice davis Rajendra ROY Primary Care Provider [phone] Reason for Visit * Reason Comments Back Pain Bilateral Leg Pain Encounter Details Date Type Department Care Team (Latest Contact Info) Description 04/28/2014 9:15 AM EDT Procedure [place] [address] [facility] [place] [address] Displacement of lumbar intervertebral disc without myelopathy (Primary Dx) Discharge Disposition: Home Social History [...] Sign Reading Time Taken Comments Blood Pressure 165/97 04/28/2014 9:59 AM EDT Pulse 82 04/28/2014 9:59 AM EDT Temperature - - Respiratory Rate 18 04/28/2014 9:59 AM EDT Oxygen Saturation 99% 04/28/2014 9:59 AM EDT Inhaled Oxygen Concentration - - Weight 81.2 kg (179 lb) 04/28/2014 9:18 AM EDT Height 154.9 cm (5' 1) 04/28/2014 9:18 AM EDT Body Mass Index 33.82 04/28/2014 9:18 AM EDT documented in this encounter Patient Instructions * Patient Instructions* Isabell Walker LPN - 04/28/2014 9:49 AM EDT Pain Management Center Discharge Instructions: You were seen by Dr. Kim Forbes DO who performed Right transforaminal injection. It is normal that the injection [...] your procedure. You received the following medications: Lidocaine, Omnipaque (contrast dye) and Dexamethasone Sodium Phosphate 10 mg. During regular business hours, please phone [...] or proceed to your local emergency department. Isabell Walker LPN Special instructions documented in this encounter Progress Notes * Colleen Valenzuela LPN - 04/28/2014 9:22 AM EDT Pre-Procedure Screening Questions: 1. Status: No 2. Patient states they have a shuttle van driver to transport after procedure? Yes 3. Patient taking antibiotics at present? No 4. NPO per Pain Management Center protocol? No 5. Patient diabetic: No 6. Patient routinely taking anticoagulants ? No Anticoagulant: Date Stopped: Current INR: Patient Vital Signs documented in Doc Flowsheets associated with this encounter. Patient Discharge Instructions were reviewed with patient and copy provided to patient. documented in this encounter Procedure Notes * Ivana Jung MD - 04/28/2014 9:49 AM EDTAssociated Order(s): TRANSFORAMINAL INJECTION Procedure(s): TRANSFORAMINAL INJECTION Pre-Procedure Diagnose(s): Displacement of lumbar intervertebral disc without myelopathy PROCEDURE NOTE Transforaminal Epidural Steroid Injection with Fluoroscopic Guidance at right L4-L5 Chief Complaint: right leg pain. Poppy Mclaughlin has been referred to the Pain Management Center for Lumbar Transforaminal Epidural Steroid Injection right L4-L5 COMMENTS: Referring provider: Dr. Acuna Allergies: Allergies Allergen Reactions ??? Albuterol Liquid--Per patient, she gets hyperactivity. ??? Egg Per patient, she vomits. Follow up with Dr. Acuna as scheduled or PRN. Poppy Mclaughlin was greeted by the nurse who verified patients name and . Patient was then takento the fluoroscopy suite. Ms. Mclaughlin was interviewed and the medical record reviewed. There were no medical, pharmacologic, radiographic or other structural contraindications to attempting fluoroscopically guided transforaminal lumbar epidural steroid injection. The risks, benefits, and potential side effects were reviewed with the patient. Risk include, but not limited to, post dural puncture, headache, infection, nerve injury, allergic reaction, possible increase in symptoms over the ensuing 24 to 48 hours, and paralysis. The patient appeared to understand, questions were answered and the patient agreed to proceed. Once I obtained informed verbal consent, the printed consent form was signed by the patient and myself. Standard time-out procedure was performed. TECHNIQUE: After informed written consent was obtained the patient was placed in the prone position. The lumbar spine spine was prepped with chloraprep and draped. Sterile technique was observed during the entire procedure ( cap, gloves, and mask were worn). Vitals signs were monitored throughout the procedure. The right side was marked with a radioopaque marker. The skin and subcutaneous structures were anesthetized with lidocaine 1% to a total volume of 3 ML at each level. Under fluoroscopic guidance, in ipsilateral oblique view, co-axial approach, 22 gauge spinal needle(s) were advanced to the base of the L-5. pedicle(s). The needle(s) were advanced to the superio-posterior aspect of the neural foramen under lateral view. Oblique and AP views were rechecked. Under AP view Omnipaque 240 1 cc's was injected while visualized with fluoroscopy. There was no evidence ofintravascular uptake, the epidural space was delineated. 10 mg Dexamethasone was injected after negative aspiration followed by lidocaine 1% 0.25-ML. Outcome: The patient tolerated the procedure well and had stable vital signs. Follow up plans and appointments were discussed with Ms. Mclaughlin. The patient was observed in the pain clinic and then discharged after having met discharge criteria to the care of a shuttle van driver. The patient received written instructions as documented in nursing records. Disposition: Ms. Mclaughlin was discharged from the procedure suite without new neurological complaints. Follow-up: Follow up with Dr. Acuna as scheduled or PRN. Consider trochanteric injection if pain not improved following injection. I was the attending physician supervising the resident in the above care and I was present with theresident for the entire procedure. KIM FORBES DO, MPH [facility]-subspecialty board certification in Pain Medicine Attending Physician-Pain Management CC: Rios Acuna MD [facility] [place] [address] documented in this encounter Plan of Treatment Pending Results Name Type Priority Associated Diagnoses Date /Time XR Fluoro OR c-arm storage only Imaging Routine 04/28/2014 12:07 PM EDT Scheduled Orders Name Type Priority Associated Diagnoses Orde r Schedule XR Fluoro OR c-arm storage only Imaging Routine Once PRN (for Ra diant use) for 1 Occurrences starting 04/28/2014 until 04/28/2014 documented as of this encounter Procedures Procedure Name Priority Date/Time Associated Diagnosis Comments TRANSFORAMINAL INJECTION Routine 04/29/2014 3:30 PM EDT Displacement of lumbar intervertebral disc without myelopathy documented in this encounter Results * TRANSFORAMINAL INJECTION (04/29/2014 3:30 PM EDT) Narrative Kim Forbes V, DO - 04/29/2014 3:30 PM EDT Kim Forbes V, DO ? 04/29/2014 ??3:30 PM PROCEDURE NOTE Transforaminal Epidural Steroid Injection with Fluoroscopic Guidance at right L4-L5 Chief Complaint: right leg pain. ?? Poppy Mclaughlin has been referred to the Pain Management Center for Lumbar Transforaminal Epidural Steroid Injection ??right L4-L5 COMMENTS: Referring provider: Dr. Acuna Allergies: Allergies Allergen Reactions ? ? Albuterol ?Liquid--Per patient, she gets hyperactivity. ? ? Egg ?Per patient, she vomits. Follow up with Dr. Acuna as scheduled or PRN. Poppy Mclaughlin was greeted by the nurse who verified patients name and . ??Patient was then taken to the fluoroscopy suite. Ms. Mclaughlin was interviewed and the medical record reviewed. ?? There were no medical, pharmacologic, radiographic or other structural contraindications to attempting fluoroscopically guided transforaminal lumbar epidural steroid injection. ??The risks, benefits, and potential side effects were reviewed with the patient. ??Risk include, but not limited to, post dural puncture, headache, infection, nerve injury, allergic reaction, possible increase in symptoms over the ensuing 24 to 48 hours, and paralysis. ??The patient appeared to understand, ??questions were answered and the patient agreed to proceed. ??Once I obtained informed verbal consent, the printed consent form was signed by the patient and myself. Standard time-out procedure was performed. TECHNIQUE: ??After informed written consent was obtained the patient was placed in the prone position. ??The lumbar spine spine was prepped with chloraprep and draped. ??Sterile technique was observed during the entire procedure ( cap, gloves, and mask were worn). Vitals signs were monitored throughout the procedure. ??The right side was marked with a radioopaque marker. ??The skin and subcutaneous structures were anesthetized with lidocaine 1% to a total volume of 3 ??ML at each level. Under fluoroscopic guidance, in ipsilateral oblique view, co-axial approach, ??22 gauge spinal needle(s) were advanced to the base of the ?? L-5. ?? pedicle(s). ??The needle(s) were advanced to the superio-posterior aspect of the neural foramen under lateral view. ??Oblique and AP views were rechecked. ?? Under AP view Omnipaque 240 ??1 cc's was injected while visualized with fluoroscopy. ?? There was no evidence of intravascular uptake, the epidural space was delineated. ??10 mg Dexamethasone was injected after negative aspiration followed by lidocaine 1% 0.25-ML. Outcome: The patient tolerated the procedure well and had stable vital signs. ?? Follow up plans and appointments were discussed with Ms. Mclaughlin. The patient was observed in the pain clinic and then discharged after having met discharge criteria ??to the care of a shuttle van driver. ?? The patient received written instructions as documented in nursing records. ?? Disposition: ??Ms. Mclaughlin was discharged from the procedure suite without new neurological complaints. Follow-up: Follow up with Dr. Acuna as scheduled or PRN. ?? Consider trochanteric injection if pain not improved following injection. I was the attending physician supervising the resident in the above care and I was present with the resident for the entire procedure. KIM FORBES DO, MPH [facility]-subspecialty board certification in Pain Medicine Attending Physician-Pain Management CC: Rios Acuna MD [facility] [place] [address] Procedure Note Ivana Jung MD - 04/28/2014 9:49 AM EDT PROCEDURE NOTE Transforaminal Epidural Steroid Injection with Fluoroscopic Guidance atright L4- L5 Chief Complaint: right leg pain. Poppy Mclaughlin has been referred to the Pain Management Center for LumbarTransforaminal Epidural Steroid Injection right L4-L5 COMMENTS: Referring provider: Dr. Acuna Allergies: Allergies Allergen Reactions ? ? Albuterol Liquid--Per patient, she gets hyperactivity. ? ? Egg Per patient, she vomits. Follow up with Dr. Acuna as scheduled or PRN. Poppy Mclaughlin was greeted by the nurse who verified patients name andDOB. Patient was then taken to the fluoroscopy suite. Ms. Mclaughlin was interviewed and the medical record reviewed. There were nomedical, pharmacologic, radiographic or other structural contraindicationsto attempting fluoroscopically guided transforaminal lumbar epiduralsteroid injection. The risks, benefits, and potential side effects werereviewed with the patient. Risk include, but not limited to, post duralpuncture, headache, infection, nerve injury, allergic reaction, possibleincrease in symptoms over the ensuing 24 to 48 hours, and paralysis. Thepatient appeared to understand, questions were answered and the patientagreed to proceed. Once I obtained informed verbal consent, the printedconsent form was signed by the patient and myself. Standard time-outprocedure was performed. TECHNIQUE: After informed written consent was obtained the patient wasplaced in the prone position. The lumbar spine spine was prepped withchloraprep and draped. Sterile technique was observed during the entireprocedure ( cap, gloves, and mask were worn). Vitals signs were monitoredthroughout the procedure. The right side was marked with a radioopaquemarker. The skin and subcutaneous structures were anesthetized withlidocaine 1% to a total volume of 3 ML at each level. Under fluoroscopic guidance, in ipsilateral oblique view, co-axialapproach, 22 gauge spinal needle(s) were advanced to the base of theL-5. pedicle(s). The needle(s) were advanced to the superio-posterioraspect of the neural foramen under lateral view. Oblique and AP viewswere rechecked. Under AP view Omnipaque 240 1 cc's was injected whilevisualized with fluoroscopy. There was no evidence of intravascularuptake, the epidural space was delineated. 10 mg Dexamethasone wasinjected after negative aspiration followed by lidocaine 1% 0.25-ML. Outcome: The patient tolerated the procedure well and had stable vitalsigns. Follow up plans and appointments were discussed with Ms. Mclaughlin. Thepatient was observed in the pain clinic and then discharged after havingmet discharge criteria to the care of a shuttle van driver. The patient receivedwritten instructions as documented in nursing records. Disposition: Ms. Mclaughlin was discharged from the procedure suite withoutnew neurological complaints. Follow-up: Follow up with Dr. Acuna as scheduled or PRN. Considertrochanteric injection if pain not improved following injection. I was the attending physician supervising the resident in the above careand I was present with the resident for the entire procedure. KIM FORBES DO, MPH [facility]-subspecialty board certification in Pain Medicine Attending Physician-Pain Management CC: Rios Acuna MD [facility] [address] Kim Jeong DO PROCEDURE/MINOR SURG ICAL ORDERABLES documented in this encounter Visit Diagnoses Diagnosis Displacement of lumbar intervertebral disc without myelopathy- Primary documented in this encounter Administered Medications Inactive Administered Medications - up to 3 most recent administrations Medication Order MAR Action Action Date Dose Rate Site dexamethasone sodium (PF) injection 10 mg 10 mg, Epidural, ONCE, 1 dose, On Sat04/28/14 at 1015, Wasted 2mg, Routine Given 04/28/2014 10:15 AM EDT 10 mg iohexol (OMNIPAQUE) injection 2 mL 2 mL, Epidural, ONCE, 1 dose, On Sat04/28/14 at 1015, Wasted 48 ml, Routine Given 04/28/2014 10:15 AM EDT 2 mLs documented in this encounter Care Teams Real Estate Officer Relationship Specialty Start Date End Date Mary Alice Cage APRN PCP - General 10/12/11 11/12/18 documented as of this encounter
--- OUTSIDE RECORDS SUMMARY | 2024-03-17 18:33 | XMS_ITS | Encounter Summary ---
[place] [address] Care Team Providers Care Cq Developer Name Role Phone Mary Alice Cage APRN Primary Care Provider [phone] Reason for Visit * Reason Comments Results Encounter Details Date Type Department Care Team (Late st Contact Info) Description 06/16/2014 Telephone [place] [address] Nina Hollingsworth, RN DEPT OF GASTROENTEROLOGY Results Social History Tobacco Use Types Packs/Day [...] Telephone Encounter - Nina Julian RN - 06/16/2014 8:52 AM EST Patient calls with questions and plan regarding her recent anal rectal manometry. Please advise. documented in this encounter Plan of Treatment Not on file documented as of this encounter Visit Diagnoses Not on filedocumented in this encounter Care Teams Cq Developer Relationship Specialty Start Date End Date Mary Alice Cage APRN PCP - General 10/12/11 11/12/18 documented as of this encounter
--- OUTSIDE RECORDS SUMMARY | 2024-03-17 18:33 | XMS_ITS | Encounter Summary ---
Author Organization [facility] [place] [address] Care Team Providers Care C++ Professor Name Role Phone [place] Mary Alice Rajendra ROY Primary Care Provider [phone] Reason for Referral * Consultation (Routine) - Closed Specialty Diagnoses / Procedures Referred By Chava alejo Referred To Contact Gastroenterology Diagnoses Bloat Esophageal reflux Diarrhea IBS (irritable bowel syndrome) Justin Starkey MD [facility] [place] [address] [facility] [address] [place] [address] Referral ID Status Reason Start Date Expiration Date V isits Requested Visits Authorized [id number] Closed Consult, Test & Treat 05/20/2014 11/16/2014 1 1 Encounter Details Date Type Department Care Team (Late st Contact Info) Description 05/20/2014 11:00 AM EDT [place] [address] Justin Starkey MD [facility] [place] [address] Bloat (Primary Dx); Esophageal reflux; Diarrhea; IBS (irritable bowel syndrome) Discharge Disposition: Home Social History Tobacco Use [...] Sign Reading Time Taken Comments Blood Pressure 156/96 05/20/2014 10:56 AM EDT Pulse 99 05/20/2014 10:56 AM EDT Temperature - - Respiratory Rate - - Oxygen Saturation - - Inhaled Oxygen Concentration - - Weight 81.6 kg (180 lb) 05/20/2014 10:56 AM EDT Height 154.9 cm (5' 1) 05/20/2014 10:56 AM EDT Body Mass Index 34.01 05/20/2014 10:56 AM EDT documented in this encounter Progress Notes * Justin Starkey MD - 06/10/2014 4:27 PM EDT GI FOLLOWUP Poppy Mclaughlin Female, 53 yrs, 1960 PCP: MARY ALICE DOMINGO ECOLOGIST TECHNICIAN: NONE REASON FOR VISIT This is a very nice 53-year-old woman who returns today for a scheduled followup appointment. PRIOR OFFICE VISITS I last saw her on 11/24/13. I follow her for symptoms of IBS with diarrhea in addition to significant problems with gas and bloating in part due to methane overproduction. LAST VISIT We instituted a trial of rifaximin to help with gas and bloating. We had her start Lomotil and increase the dose up to four per day. We continued Dexilant for reflux and had her use Bentyl for esophageal spasms. ON REVIEW Reflux symptoms are fairly well controlled on the Dexilant; esophageal spasms are better on the Bentyl; Lomotil has helped the diarrhea, although she continues to have fairly significant UGR-lisb-kgeeiitg symptoms. She has one or two good days per week, meaning that she does not have episodes of incontinence and generally has three bowel movements per day. The rest of the days per week are ???bad?? , meaning that she may have up to five loose, watery, non-bloody bowel movements along with episodes of fecal incontinence. We discussed risk factors for fecal incontinence and in this patient it may reflect a prior vaginal delivery with an episiotomy. The second rifaximin trial really did nothing at all; this is very frustrating. We discussed her diet, and she is doing better by avoiding certain ???danger foods?? (onions, peppers, high-fiber foods) although they still occasionally sneak into her diet. We discussed the difficulty treating methane overproduction and gas and bloating and therisks and benefits of antibiotics. I did my best to answer her questions. We noted that, despite the fact that she is having these ongoing symptoms, she has actually gained more weight and today weighs 181 pounds, a 24-pound weight gain compared to just six months ago. She is still struggling with back pain; she is working on disability forms with her assistant research scientist. A treatment plan is outlined below. ALLERGIES/ADR See eD-H; reviewed. MEDICATIONS See eD-H; reviewed. PAST MEDICAL HISTORY 1. See prior records. 2. IBS with diarrhea. 3. 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 5. Reflux. 6. Chronic back pain. PAST SURGICAL HISTORY 1. Emergency hernia repair May 2011, [place]. 2. Cholecystectomy 11/24/12. 3. Cervical spine fusion surgery August 2013. HABITS Positive tobacco. FAMILY HISTORY Noncontributory. SOCIAL HISTORY x10 years, not currently working, applying for disability. [...] 6. Lomotil - has helped diarrhea symptoms. PHYSICAL EXAM Weight 181 pounds. IMPRESSIONS/RECOMMENDATIONS 1. IBS with diarrhea. Increase Lomotil from 1 tablet four times daily to 2 in the morning, 1 at lunch, 1 at dinner, and 1 at bedtime. In two weeks, if diarrhea persists, increase to a 2-2-1-1 schedule. 2. Gas and bloating due to methane overproduction. Empiric trial of tetracycline at 250 mg p.o. t.i.d. As she finishes that 10-day trial, then start Culturelle probiotic for a 90-day trial period. Call in six weeks with results. Continue to decrease fiber intake and fructose intake in her diet. Dietary suggestions provided. 3. For reflux, continue lifestyle modifications. Continue Dexilant at 60 mg q.a.m.; she is up to date on that prescription. 4. For nutcracker esophagus and for heightened gastrocolic reflex, continue Bentyl on a q.i.d. dose; she is up to date on that prescription. 5. Follow up with PCP as scheduled. 6. I will arrange anorectal manometry due to episodes of fecal incontinence. 7. I will see the patient back in followup in six months. TIME SPENT WITH PATIENT Total Minutes: 40 Minutes of Qnci-nb-Lnii Counseling: The entire visit was spent in jcvj-xv-emrd counseling and coordination of care. Justin Starkey, PhD, MD printed circuit boards stripper etcher, [employer] Section of Gastroenterology and Hepatology [facility] [address] V: [phone] F: [phone] MICKY/mian CC/EC: PCP - staff msg copy 06/10/14 documented in this encounter Plan of Treatment Scheduled Referrals Name Type Priority Associated Diagnoses Order Schedule Referral to Gastroenterology Outpatient Referral Routine Bloat Esophageal reflux Diarrhea IBS (irritable bowel syndrome) Ordered: 05/20/2014 documented as of this encounter Visit Diagnoses Diagnosis Bloat- Primary Flatulence, eructation, and gas pain Esophageal reflux Diarrhea IBS (irritable bowel syndrome) Irritable bowel syndrome documented in this encounter Care Teams C++ Professor Relationship Specialty Start Date End Date Mary Alice Domingo APRN PCP - General 10/12/11 11/12/18 documented as of this encounter
--- OUTSIDE RECORDS SUMMARY | 2024-03-17 18:33 | XMS_ITS | Encounter Summary ---
Author Organization [facility] Address [facility] Musa friendhé[place] [address] Care Team Providers Care Flight Paramedic Name Role Phone Mary Alice Cage APRN Primary Care Provider [phone] Encounter Details Date Type Department Care Team (Latest Contact Info) Description 07/07/2014 8:52 AM EST - 07/07/2014 11:59 PM [facility] Encounter XRay at [address] [place] [address] Radiculopathy of lumbar region Social History Tobacco [...] Spacing Device Spcr 2 puffs by [facility].(Non-Drug; Combo Route) route daily. promethazine (PHENERGAN) 25 [...] for Pain. 75 tablet 0 08/31/2014 09/09/2014 BUDESONIDE/FORMOTEROL FUMARATE (SYMBICORT INHL) Inhale 2 puffs [...] LUMBAR SPINE 2 OR 3 VIEWS Routine 07/07/2014 9:03 AM EST Radiculopathy of lumbar region documented [...] unspecified documented in this encounter Care Teams Flight Paramedic Relationship Specialty Start Date End Date Mary Alice Cage APRN PCP - General 10/12/11 11/12/18 documented as of this encounter
--- OUTSIDE RECORDS SUMMARY | 2024-03-17 18:33 | XMS_ITS | Encounter Summary ---
[place] [address] Care Team Providers Care Director Banking Name Role Phone Mary Alice Cage MANUELA Primary Care Provider [phone] Encounter Details Date Type Department Care Team (Late st Contact Info) Description 04/26/2014 Telephone [place] [id number] Lexie Awad RN Social History Tobacco Use [...] Encounter - Lexie Awad RN - 04/26/2014 12:34 PM EDT Poppy Mclaughlin :1960 Contact made with patient: I spoke to Ms. Mclaughlin at 12:34 PM regarding her upcoming Right transforaminal injection scheduled on 04/28/2014 scheduled at 9:[address] Melchor Hartman DO. Medication and Allergy reconciliation: 1. Changes were made in the telephone encounter per patient; marked as reviewed, and closed. 2. Patient confirmed no IVP dye allergy. 3. Have you had any steroid injections anywhere in your body within the last two weeks? no Arrival time: The patient was instructed to arrive at 9:15 am (30 minutes prior to procedure start time - 60 minutes prior for RF patients with a pacemaker) on 04/28/2014. Loss Prevention Research Engineer: The patient was reminded that they need to have a equipment driver accompany them to her procedure who [...] vomiting. 5. The patient confirmed that she is still experiencing significant pain. (Significant pain is defined as interfering with performing ADL.) Pain and Anti-anxiety Medications: 1. All Other Procedure Patients: The patient was instructed that if they take daily pain or anti-anxiety medications, they can and should continue taking on the day of the procedure. Does patient have history of any diagnosed bleeding disorders: No Anticoagulants: No Implant: Patient has pacemaker/defibrillator: No Prior to checking in at [employer], please be sure to empty your bladder. Patient confirmed understanding that if they do not follow the above their instructions, their procedure is likely to be cancelled. Lexie Awad RN documented in this encounter Plan of Treatment Not on file documented as of this encounter Visit Diagnoses Not on filedocumented in this encounter Care Teams Director Banking Relationship Specialty Start Date End Date Mary Alice Cage APRN PCP - General 10/12/11 11/12/18 documented as of this encounter
--- OUTSIDE RECORDS SUMMARY | 2024-03-17 18:33 | XMS_ITS | Encounter Summary ---
[place] [address] Care Team Providers Care Fabric And Textile Factory Worker Name Role Phone Mary Alice Cage APRN Primary Care Provider [phone] Encounter Details Date Type Department Care Team (Late st Contact Info) Description 03/23/2014 Telephone [place] [id number] Alida Tabares V Social History Tobacco Use Types Packs/Day Years [...] encounter Miscellaneous Notes * Telephone Encounter - Alida Tabares V - 03/23/2014 9:53 AM EDT Per pt's request, left message on home phone with upcoming appt information. documented in this encounter Plan of Treatment Not on file documented as of this encounter Visit Diagnoses Not on filedocumented in this encounter Care Teams Fabric And Textile Factory Worker Relationship Specialty Start Date End Date Mary Alice Cage APRN PCP - General 10/12/11 11/12/18 documented as of this encounter
--- OUTSIDE RECORDS SUMMARY | 2024-03-17 18:33 | XMS_ITS | Encounter Summary ---
[place] [address] Care Team Providers Care Duty Manager Name Role Phone NilesMary Alice Rajendra ROY Primary Care Provider Reason for Referral * Physical Therapy (Routine) - Closed by system - Referral Specialty Diagnoses / Procedures Referred By Contac t Referred To Contact Physical Therapy Diagnoses Herniated nucleus pulposus, C6-7 Rios Acuna MD [facility] [address] Referral ID Status Reason Start Date Expiration Date Visits Requested Visits Authorized [id number] Closed by system - Referral Evaluate and Treat 12/02/2013 05/31/2014 1 1 Reason for Visit * Reason Comments Follow Up Surgery Encounter Details Date Type Department Care Team (Late st Contact Info) Description 12/02/2013 11:20 AM EDT Office [place] [address] Rios Acuna MD [facility] [place] [address] Herniated nucleus pulposus, C6-7 Right, S/P C5-7 [...] - - Weight 71.2 kg (157 lb) 12/02/2013 11:09 AM EDT Height 154.9 cm (5' 1) 12/02/2013 11:09 AM EDT Body Mass Index 29.66 12/02/2013 11:09 AM EDT documented in this encounter Patient Instructions * Patient Instructions* Magda Huff, CHROMIUM PLATER - 12/02/2013 11:09 AM EDT Images from the original note were not included. [facility] Stopping Smoking: After Your Visit Your [...] a smoking cessation program, such as the [place]'s [place] from Smoking program. ?? Set a quit [...] in several forms, many of them available zahl-khc-daxulkp: ?? Nicotine patches ?? Nicotine gum and [...] more? Visit our health information library at [email or web address] You can also view health information on [employer], your personal patient account. Log in or sign up today. Enter Y522 in the search box to learn more about Stopping Smoking: After Your Visit. ?? [id number] [employer]. Care instructions adapted under license by [facility]. This care instruction is for use with your licensed healthcare professional. If you have questions about a medical condition or this instruction, always ask your healthcare professional. [employer] disclaims any warranty or liability for your use of this information. Content Version: 9.9.271940; Last Revised: March 17, 2013 documented in this encounter Progress Notes * Rios Acuna MD - 12/02/2013 11:31 AM EDT DATE OF SURGERY: 09/08/2013 SURGERY: C5-C7 ACDF. INTERVAL HISTORY: Ms. Mclaughlin returns today about three months out from surgery. She continues to do reasonably well. She is having no upper extremity pain, and she notes that the right upper extremity numbness and function is markedly improved. 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 She is able to swallow without difficulty except for dry meat. She is off the strong pain medication and taking Tylenol and occasional ibuprofen. She continues to smoke some, though she is planing to talk to her PCP about Chantix. Overall, she is pleased with her progress. PHYSICAL EXAMINATION: General: The patient is comfortable, in no acute distress. Neck: She has a well-healed anterior incision. She can flex 20 degrees, extend 10 degrees, side bend 10 degrees, and rotate 20 degrees. Neurologic Exam: She has 5/5 strength in all upper extremity motor groups. She has no numbness. IMAGING: Lateral flexion and extension views of the cervical spine obtained today demonstrate no change in alignment of the graft or the hardware. There is no motion on flexion and extension. ASSESSMENT/PLAN: Ms. Mclaughlin is about three months out from her C5-C7 anterior cervical diskectomy and fusion, and doing well. Her radicular symptoms are resolved. I again reinforced the need to refrain from nicotine. I suggest she avoid ibuprofen if possible as that can also have a deleterious effect on fusion. I gave her a prescription for a wedge pillow, as she feels that this might help her sleep. I indicated it would be okay for her to use a vitamin E cream on the incision. I referred her to physical therapy to work on her neck range of motion as well as core strengthening as she does have some back pain as well. At this point, I do not feel it is safe for her to drive, so if there is any assistance that she needs to help with that, that would be appropriate. I will follow up with her in three months with flexion and extension x-rays at that time. documented in this encounter Miscellaneous Notes * Miscellaneous - Provider, Ruben - 12/20/2013 6:49 PM EDT documented in this encounter Plan of Treatment Scheduled Referrals Name Type Priority Associated Diagnoses Orde r Schedule Referral to Physical Therapy Outpatient Referral Routine Herniated nucleus pulposus, C6-7 Right, S/P C5-7 ACDF 09/08/13 Ordered: 12/02/2013 documented as of this encounter Results * [...] myelopathy documented in this encounter Care Teams Duty Manager Relationship Specialty Start Date End Date Mary Alice Cage APRN PCP - General 10/12/11 11/12/18 documented as of this encounter
--- OUTSIDE RECORDS SUMMARY | 2024-03-17 18:34 | XMS_ITS | Encounter Summary ---
[place] [address] Care Team Providers Care Engineering Aide Name Role Phone Mary Alice Cage APRN Primary Care Provider [phone] Encounter Details Date Type Department Care Team (Late st Contact Info) Description 10/31/2012 Abstract [place] [address] Renu Jacobsen, SIZING SPONGER Social History Tobacco Use Types Packs/Day Years Used Date Smoking Tobacco: Every Day Cigarettes 2 20 Smokeless Tobacco: Never Sex and Gender Information Value Date Recorded Sex Assigned at Not on file Gender Identity Not on file Sexual Orientation Not on file documented as of this encounter Plan of Treatment Not on file documented as of this encounter Visit Diagnoses Not on filedocumented in this encounter Care Teams Engineering Aide Relationship Specialty Start Date End Date Mary Alice Cage APRN PCP - General 10/12/11 11/12/18 documented as of this encounter
--- OUTSIDE RECORDS SUMMARY | 2024-03-17 18:34 | XMS_ITS | Encounter Summary ---
Author Organization [facility] [place] [address] Care Team Providers Care Seafood Specialist Name Role Phone BartholomewMary Alice davis MANUELA Primary Care Provider [phone] Reason for Visit * Reason Comments Follow-up S/P LAP NOAH Encounter Details Date Type Department Care Team (Late st Contact Info) Description 12/04/2012 1:30 PM EDT Office [place] [address] Jillian Wiley APRN [facility] [place] [address] Surgery follow-up (Primary Dx) Discharge Disposition: Home Social History Tobacco Use Types Packs/Day Years Used Date Smoking Tobacco: Every Day Cigarettes 2 20 Smokeless Tobacco: Never Alcohol Use Standard Drinks/Week Comments No 0 (1 standard drink = 0.6 oz pure alcohol) stopped drinking 2 yrs. ago after a surgery in 2010 Sex and Gender Information Value Date Recorded Sex Assigned at Not on file Gender Identity Not on file Sexual Orientation Not on file documented as of this encounter Progress Notes * Jillian Wiley APRN - 12/04/2012 1:58 PM EDT Poppy Mclaughlin is here for hospital check. 11/24/12:laparoscopic cholecystectomy-Trus Path:Chronic cholecystitis. Feels very well, denies fevers chills jaundice, pale stools or dark urine. Denies abdominal pain, nausea, or vomiting, appetite and energy good, denies any incisional pain. Pleased with progress, in good spirits. Exam: Well appearing, moves easily about the exam room and onto the exam table. Sclera clear and non icteric, no jaundice. Abd soft non tender non distended, with benign trocar sites. Impression/plan: Unremarkable post discharge course At this time there is no scheduled general surgery FU indicated. However, the patient knows to feelfree to call us should there be any question, concern, or should anything specific arise. documented in this encounter Plan of Treatment Not on file documented as of this encounter Visit Diagnoses Diagnosis Surgery follow-up- Primary Follow-up examination, following unspecified surgery documented in this encounter Care Teams Seafood Specialist Relationship Specialty Start Date End Date Mary Alice Cage APRN PCP - General 10/12/11 11/12/18 documented as of this encounter
--- OUTSIDE RECORDS SUMMARY | 2024-03-17 18:34 | XMS_ITS | Encounter Summary ---
Author Organization [facility] [place] [address] Care Team Providers Care Plumbing Mechanic Name Role Phone MelletteMary Alice davis Rajendra ROY Primary Care Provider [phone] Reason for Visit * Reason Onset Date Comments Medication Refill 12/08/2012 Encounter Details Date Type Department Care Team (Late st Contact Info) Description 12/08/2012 [place] [address] Malia Vidal APRN [facility] DR [place] [address] Social History Tobacco Use Types Packs/Day Years [...] Notes * Telephone Encounter - Debbie Skinner CMA - 12/09/2012 7:40 AM EDTFrom: Poppy Mclaughlin To: Malia Vidal APRN Sent: 12/08/2012 11:20 PM EDT Subject: Medication Renewal Request Original authorizing provider: MANUELA CHAVEZ would like a refill of the following medications: diphenoxylate-atropine (LOMOTIL) 2.5-0.025 mg per tablet [TRACIA Cleveland'YAIMA, EARLY CHILDHOOD SPECIALIST] dicyclomine (BENTYL) 10 mg capsule [TRACIA Cleveland'YAIMA, EARLY CHILDHOOD SPECIALIST] Preferred pharmacy: [facility] [address] [place] [address] Comment: documented in this encounter Plan of Treatment Not on file documented as of this encounter Visit Diagnoses Not on filedocumented in this encounter Care Teams Plumbing Mechanic Relationship Specialty Start Date End Date Mary Alice Cage APRN PCP - General 10/12/11 11/12/18 documented as of this encounter
--- OUTSIDE RECORDS SUMMARY | 2024-03-17 18:34 | XMS_ITS | Encounter Summary ---
Author Organization [facility] [place] [address] Care Team Providers Care Bowling Ball Grader Name Role Phone Mary Alice Cage MANUELA Primary Care Provider [phone] Encounter Details Date Type Department Care Team (Latest Contact Info) Description 12/09/2012 8:15 AM EDT [place] [address] Marshall Montgomery MD [facility] [place] [address] Cervical radiculopathy (Primary Dx) Discharge Disposition: Home Social [...] Sign Reading Time Taken Comments Blood Pressure 153/88 12/09/2012 8:29 AM EDT Pulse 90 12/09/2012 8:29 AM EDT Temperature - - Respiratory Rate - - Oxygen Saturation - - Inhaled Oxygen Concentration - - Weight 72.6 kg (160 lb 1.6 oz) 12/09/2012 8:29 A M EDT Height 154.9 cm (5' 1) 12/09/2012 8:29 AM EDT Body Mass Index 30.25 12/09/2012 8:29 AM EDT documented in this encounter Progress Notes * Marshall Montgomery MD - 12/09/2012 9:11 AM EDT I was asked to see Poppy Mclaughlin at the request of Dr. Acuna for EMG nerve conduction studies for evaluation of possible median neuropathy in the context of a history of a right cervical radiculopathy. Brief History: Poppy is a 52-year-old female who is being evaluated by Dr. Acuna regarding cervical radiculopathy. She has an abnormal MRI. She has pain in the right arm from the neck radiating down the hand including paresthesias radiating all the way down the arm. Dr. Acuna wondered if there was also median nerve entrapment as well. On focused exam there is no wasting or fasciculations. Power is grossly 5/5 throughout in the upper extremities. Sensory exam: With some altered sensation involving almost the entire hand on the right including the thumb, second, third, and fourth digits, mildly so on the fifth, also the palm to some extent. Tinel sign was positive at the wrist. However, even tapping more laterally to the median nerve led to paresthesias in the hand. EMG Nerve Conduction Studies: Please see report for complete data. The right median, ulnar, and radial sensory studies were normal. Right median and ulnar motor studies and their F waves were normal. EMG of the right upper extremity including deltoid, biceps, EDC, APB, and FDI showed no active denervation and normal motor unit action potentials. Assessment: EMG nerve conduction studies are normal and do not demonstrate any electrophysiologic evidence of right median nerve entrapment at the wrist. Clinical picture overall consistent with the patient's history of a right cervical radiculopathy, C5-6 and C6-7, where she is being evaluated by Dr. Acuna. She will follow up with Dr. Acuna. documented in this encounter Plan of Treatment Not on file documented as of this encounter Visit Diagnoses Diagnosis Cervical radiculopathy- Primary Brachial neuritis or radiculitis nos documented in this encounter Care Teams Bowling Ball Grader Relationship Specialty Start Date End Date [place], Mary Alice G, CELLAR PUMPER PCP - General 10/12/11 11/12/18 documented as of this encounter
--- OUTSIDE RECORDS SUMMARY | 2024-03-17 18:34 | XMS_ITS | Encounter Summary ---
Author Organization [facility] Address [facility] [address] [address] Care Team Providers Care English Language Arts Teacher Name Role Phone Mary Alice Cage MANUELA Primary Care Provider [phone] Encounter Details Date Type Department Care Team (Latest Contact Info) Description 07/07/2013 7:28 AM EST - 07/07/2013 11:59 PM [facility] Encounter XRay at [address] [place] [address] CLINIC, Rios Morris MD [facility] [place] [address] Herniated nucleus pulposus, C6-7 Right, with degenderative changes Discharge Disposition: Home Social History Tobacco Use Types Packs/Day Years Used Date Smoking Tobacco: Former Cigarettes 1.5 20 1 09/06/1992 - 07/07/2013 Smokeless Tobacco: Never Alcohol Use Standard [...] by mouth daily. gabapentin (NEURONTIN) 300 mg capsule Take 300 mg by mouth daily. 11/18/2014 diphenoxylate-atropine (LOMOTIL) 2.5-0.025 mg per tablet Take 1 tablet by mouth 4 times daily as needed for Diarrhea. 120 tablet 5 07/06/2013 09/09/2013 dicyclomine (BENTYL) 10 mg capsule Take 1 [...] times daily. 60 tablet prn 05/28/2012 10/21/2013 acetaminophen (TYLENOL EXTRA STRENGTH) 500 mg tablet Take 1,000 mg by mouth 4 times daily. 09/09/2013 ibuprofen (ADVIL;MOTRIN) 600 mg tablet Take 600 mg by mouth. Takes 2-3 times daily. 09/09/2013 documented as of this encounter Plan of Treatment Not on file documented as of this encounter Procedures Procedure Name Priority Date/Time Associated Diagnosis Comments XR CERVICAL SPINE 1 VIEW Routine 07/07/2013 7:43 AM EST Herniated nucleus pulposus, C6-7 Right, with degenderative changes documented in this encounter Results * XR cervical spine 1 view (07/07/2013 7:43 AM EST) Anatomical Region Laterality Modality C-spine N/A Radiographic Martha ging 07/07/2013 7:43 AM EST Narrative 07/07/2013 9:09 AM EST Examination CERVICAL SPINE LATERAL ONLY Clinical History R arm cervical radiculopathy, surgical planning Comparison Cervical spine radiographs from 11/03/2012. ??MR spine from 10/24/2007. Technique Single view of the cervical spine, lateral standing. Findings There is straightening of the normal cervical lordosis. ??No prevertebral soft tissue swelling. No fracture or subluxation. Vertebral body heights are maintained. ??There is multilevel degenerative changes, most pronounced at C4-C5 and C5-C6 with disc space narrowing and marginal osteophytosis. Impression Cervical spine spondylotic changes, as described above. Film and interpretation reviewed by the attending Procedure Note Andriy Jay MD - 07/07/2013 Examination CERVICAL SPINE LATERAL ONLY Clinical History R arm cervical radiculopathy, surgical planning Comparison Cervical spine radiographs from 11/03/2012. MR spine from 10/24/2007. Technique Single view of the cervical spine, lateral standing. Findings There is straightening of the normal cervical lordosis. No prevertebralsoft tissue swelling. No fracture or subluxation. Vertebral body heights are maintained. There is multilevel degenerative changes, most pronounced atC4-C5 and C5-C6 with disc space narrowing and marginal osteophytosis. Impression Cervical spine spondylotic changes, as described above. Film and interpretation reviewed by the attending Rios Acuna MD IMG DX ORDERABLES documented in this encounter Visit Diagnoses Diagnosis Herniated nucleus pulposus, C6-7 Right, with degenderative changes Displacement of cervical intervertebral disc without myelopathy documented in this encounter Care Teams English Language Arts Teacher Relationship Specialty Start Date End Date Mary Alice Cage APRN PCP - General 10/12/11 11/12/18 documented as of this encounter
--- OUTSIDE RECORDS SUMMARY | 2024-03-17 18:34 | XMS_ITS | Encounter Summary ---
[place] [address] Care Team Providers Care Hospice Registered Nurse Name Role Phone [place] Mary Alicepham Drew APRN Primary Care Provider [phone] Reason for Referral * Consultation (Routine) - Closed Specialty Diagnoses / Procedures Referred By Chava alejo Referred To Contact Pain Management Diagnoses Herniated nucleus pulposus, C6-7 Satya Alfaro MD [facility] [place] [address] [facility] [address] [place] [address] Referral ID Status Reason Start Date Expiration Date V isits Requested Visits Authorized [id number] Closed Consult, Test & Treat 11/03/2012 05/02/2013 1 1 Reason for Visit * Reason Comments Back Pain Bilateral Hip Pain Neck Pain Encounter Details Date Type Department Care Team (Latest Contact Info) Description 11/03/2012 9:55 AM EDT Office [place] [id number] Rios Acuna MD [facility] [place] [address] Herniated nucleus pulposus, C6-7 Right, with degenderative changes (Primary Dx) Discharge Disposition: Home Social History [...] - Inhaled Oxygen Concentration - - Weight 71.7 kg (158 lb) 11/03/2012 10:17 AM EDT Height 154.9 cm (5' 1) 11/03/2012 10:17 AM EDT Body Mass Index 29.85 11/03/2012 10:17 AM EDT documented in this encounter Progress Notes * Rios Acuna MD - 11/03/2012 11:25 AM EDT CHIEF COMPLAINT: Neck pain including right upper extremity pain. HISTORY OF PRESENT ILLNESS: Ms. Mclaughlin is a 52-year-old female I am seeing in consultation for Osmany Holloway in regards to her neck pain that radiates to her right upper extremity. She has had neck pain for many years, but has had the right upper extremity pain for the last two to three months. They were insidious in onset. It is associated with some numbness affecting her radial three digits in the right hand as well as sense of some weakness in her right upper extremity. She notes that the pain tends to be worse with coughing and nothing reliably relieves it. She has minimal left upper extremity symptoms. It does bother her at night. She has not noted any significant change in her gait or fine motor skills. She denies constitutional symptoms or change in her bowel or bladder function. Other than taking ibuprofen she has had no treatment for her neck. She has never had prior spine surgery. PAST MEDICAL HISTORY: Pulmonary nodule, decreased lung volumes, GERD, biliary colic, nutcracker syndrome, distended abdomen. PAST SURGICAL HISTORY: Hernia repair. MEDICATIONS: Reviewed and are in eD-H. ALLERGIES: REVIEWED AND ARE IN ED-H. FAMILY HISTORY: Cancer, heart disease, diabetes. 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 She last worked in 2010. She is not getting any disability. She smokes two packs per day. She has not consumed alcohol for two years. REVIEW OF SYSTEMS: She has biliary colic for which she is undergoing laparoscopic cholecystectomy tomorrow. All other system negative except musculoskeletal as above. PHYSICAL EXAMINATION: The patient is 5 feet 1 inch, 158 pounds. General: The patient is comfortable, in no acute distress. Neck: Her neck is tender to palpation posteriorly. She can flex 30 degrees, extend 40 degrees, rotate 40 degrees, and side bend 20 degrees. Neurologic Exam: She walks with a normal gait. She can perform tandem gait, heel walking, and toe walking. Motor exam reveals 4/5 strength to the right wrist extensors and right wrist flexors. She has diminished sensation affecting her right radial three digits. Reflexes are 1/4 throughout the upper extremities, 1/4 at the knees, and trace at the ankles. Spurling's is positive on the right. Walter, clonus, and Babinski all negative. Median nerve compression test and Phalen's test are positive on the right. Shoulder Exam: She has some pain with range of motion of her right shoulder. Vascular Exam: She has a palpable pulses bilaterally. IMAGING: MRI of the cervical spine from 10/23/2012 demonstrates some degenerative changes throughout the cervical spine. At C5-C6, she has a right-sided disk bulge causing right-sided compression of the spinal cord and right greater than left foraminal stenosis. At C6-C7, she has a large, right-sided disk herniation that has somewhat high signal intensity on T2 causing compression of the right side of the spinal cord and in the exiting right C7 nerve. ASSESSMENT/PLAN: Ms. Mclaughlin is a 52-year-old female who presents with neck pain and right upper extremity radicular symptoms in a C6 and C7 distribution who has right-sided C5-C6 and C6-C7 disk herniations. Additionally, she does have a positive median nerve compression test and Phalen's test on the right side, so she could have some carpal tunnel syndrome overlapping with this. I told in terms of her cervical radiculopathy, treatment options include continued anti-inflammatory medication, physical therapy, epidural steroid injection, and surgery. I told her we should also work her up for carpal tunnel syndrome with electrodiagnostic studies, we will order these. She would like to proceed with an injection, and we will set this up for her. I told her she could get up to three in a year. I told her would like to see her back after her nerve conduction studies with AP, lateral, and flexion and extension x-rays. At that point, we can assess her response to the injection as well as evaluate the electrodiagnostic studies. If she continues to be symptomatic and would like to go ahead with surgery, she is likely a candidate for C5-C6 and C6-C7 anterior cervical diskectomy and fusion. I told her she would have to stop smoking prior to that surgery in order to improve the chance of getting a fusion. documented in this encounter Plan of Treatment Scheduled Referrals Name Type Priority Associated Diagnoses Orde r Schedule Referral to Pain Clinic Outpatient Referral Routine Herniated nucleus pulposus, C6-7 Right, with degenderative changes Ordered: 11/03/2012 documented as of this encounter Results * XR cervical spine flexion extension ONLY (11/03/2012 12:12 PM EDT) Anatomical Region Laterality Modality C-spine N/A Radiographic Martha ging 11/03/2012 12:1 2 PM EDT Narrative 11/03/2012 3:20 PM EDT Examination C Spine Flexion Extention Only Clinical History degen cervical spine, C6-7 disc herniation, preop for intubation for gen surg proceedure Comparison None Technique Findings There are degenerative changes with disc space narrowing and osteophyte most severely affecting C5-6 and C4-5. No fracture or subluxation is seen and there is no evidence of motion between the flexion extension views. Impression Degenerative changes as described above. Procedure Note Maik Villatoro MD - 11/03/2012 Examination C Spine Flexion Extention Only Clinical History degen cervical spine, C6-7 disc herniation, preop for intubation for gensurg proceedure Comparison None Technique Findings There are degenerative changes with disc space narrowing and osteophytemost severely affecting C5-6 and C4-5. No fracture or subluxation is seen andthere is no evidence of motion between the flexion extension views. Impression Degenerative changes as described above. Rios Acuna MD IMG DX ORDERABLES documented in this encounter Visit Diagnoses Diagnosis Herniated nucleus pulposus, C6-7 Right, with degenderative changes- Primary Displacement of cervical intervertebral disc without myelopathy Herniated nucleus pulposus, C6-7 Right, with degenderative changes Displacement of cervical intervertebral disc without myelopathy documented in this encounter Care Teams Hospice Registered Nurse Relationship Specialty Start Date End Date Mary Alice Cage APRN PCP - General 10/12/11 11/12/18 documented as of this encounter
--- OUTSIDE RECORDS SUMMARY | 2024-03-17 18:34 | XMS_ITS | Encounter Summary ---
Author Organization [facility] [address] Care Team Providers Care Senior Education Specialist Name Role Phone Mary Alice Cage MANUELA Primary Care Provider [phone] Encounter Details Date Type Department Care Team (Late st Contact Info) Description 09/08/2013 11:02 AM EST Anesthesia Event [place] [address] Samra Zhong MD [facility] [place] [address] Anesthesia Record Procedure Summary Procedure Name Responsible Anesthesiologist Anesthesia Start Time Anesthesia Stop Time ARTHRODESIS, ANT INTERBODY,DECOMPRES KASH; CERVICAL BELOW C2 (WRVU 25) (Bilateral: Neck) Samra Zhong MD 09/08/13 1102 09/08/13 1508 Events Date Time Event Comment 09/08/2013 1020 1102 AN Verify 1102 Start 1106 An Start Data 1112 An Induction 1114 An Intubation 1127 Quick Note Arterial cannul ation attempted in R & L radial arteries with good flash, easy wire advancement but were all unable to pass catheter without resistance and further attempts at arterial access were abandoned 1135 An Data Art 1140 Anesthesia Ready 1156 Procedure Start 1204 Break/Relief In 1223 Quick Note Temp cable swit ched to T2 1236 Break/Relief Out 1240 Quick Note Surgeon on cuff 1322 An Data Art Surgeon on cuff 1450 Procedure Stop 1456 Extubation/LMA Out 1456 an stop data 1508 Stop Meds Name Total fentaNYL 350 mcg lidocaine IV 20 mg propofol 220 mg Rocuronium 50 mg ePHEDrine 30 mg Ondansetron 4 mg Neostigmine 5 mg Glycopyrrolate 0.6 mg vecuronium 19 mg ceFAZolin (ANCEF) 2g in dextrose 5% 50 m L 2 g Midazolam 2 mg HYDROmorphone 1 mg propofol INF 19.11 mg lidocaine 4% LTA 3 mL lactated ringers infusion 1,000 mL 0 mL lactated ringers 400 mL * Agents Name O2 Air N2O Isoflurane (et) * Blood No blood administrations on file. Lines, Drains, and Airways Type Details Placement Removal Incision 11/04/12; 1412; abdo men; LDA not present upon assessment (healed); 07/12/21; 01511/04/12 1412 by Jesus Fritz RN 07/12/21 0157 by Shobha Padilla RN Urethral Catheter 09/08/13; indwelling double lumen catheter; 100% silicone; 16; inserted; 1; leg bag to dependent drainage; 09/09/13; 0607 09/08/13 0000 by Radha Mae RN 09/09/13 0607 by Keren Hammond APRN (RETIRED) Peripheral IV Line - Single Lumen 09/08/13; 1022; 09/09/13; 1643 09/08/13 1022 by Tara Quan RN 09/09/13 1643 by Felipa Noble RN (RETIRED) Peripheral IV Line - Single Lumen 09/09/13; 1643 09/08/13 1147 by 09/09/13 1643 by Felipa Noble RN (RETIRED) Non-Surgical Airway Mask Ventilation: Easy (1); ETT Type: Cuffed, Oral; ETT Size: 7.5 mm; Removal Date: 09/08/13; Removal Time: 1202 09/08/13 1148 by 09/08/13 1202 by Herson Arenas MD Incision 09/08/13; 1156; cerv ical spine; LDA not present upon assessment (healed); 07/12/21; 0157 09/08/13 1156 by Sanaz Briscoe RN 07/12/21 0157 by Shobha Padilla, KAMLA Drain/Device Site 09/08/13; 1249; ante rior; other (see comments); autotransfusion system (drain placement in anterior cervical ); 09/10/13; 211309/08/13 1249 by Sanaz Briscoe RN 09/10/132113 by Felipa Noble RN documented in this encounter Social History [...] OR Notes * Anesthesia Postprocedure Evaluation - Herson Arenas - 09/08/2013 4:38 PM EST Patient: Poppy Mclaughlin Procedure(s) Performed: Procedure(s): ARTHRODESIS, ANT INTERBODY,DECOMPRESSION; CERVICAL BELOW C2 @ARTHRODESIS ANT INTERBDY CERVCL BELOW C2 EA ADDL INTRSPACE @ANT. SPINAL INSTRUMENTATION, 2-3 VERTEBRA, SEGMENTED ALLOGRAFT FOR SPINE SURGERY ONLY; STRUCTUAL MODIFIER C5 MODIFIER C6 MODIFIER C7 MODIFIER GLOBUS PROVIDENCE Actual AnestheticGETA Patient location: PACU Post-op pain: Adequate analgesia Post-op nausea: no nausea or vomiting Last Vitals: Filed Vitals: 09/08/13 1630 BP: 140/87 Pulse: 98 Temp: Resp: 16 Post-op cardiovascular and respiratory status: is stable Level of consciousness: awake, alert and oriented Complications: no apparent complications and tolerated the procedure well Fluid Status: normal Adequate pain control, minimal nausea, no recall. Director Of Public Health strength intact, hand paresthesias improved from baseline. * Anesthesia Preprocedure Evaluation - Samra Zhong MD - 09/07/2013 4:21 PM EST Pre-Anesthesia Evaluation for: Poppy Mclaughlin a 52 y.o. female. Procedure(s): ARTHRODESIS, ANT INTERBODY,DECOMPRESSION; CERVICAL BELOW C2 @ARTHRODESIS ANT INTERBDY CERVCL BELOW C2 EA ADDL INTRSPACE @ANT. SPINAL INSTRUMENTATION, 2-3 VERTEBRA, SEGMENTED ALLOGRAFT FOR SPINE SURGERY ONLY; STRUCTUAL MODIFIER C5 MODIFIER C6 MODIFIER C7 MODIFIER GLOBUS PROVIDENCE Patient Active Problem List Diagnosis ??? Herniated nucleus pulposus, C6-7 Right, with degenderative changes ??? Biliary colic ??? Dyspnea ??? Multiple nodules of lung ??? Abdominal distention Past Medical History Diagnosis Date ??? Allergy liquid abuterol, egg sensitivity ??? Hypertensive disease they have said my bp is running high ??? Breathing problem im seeing dr zapata ??? Chronic pain ??? Digestive problems 12- ?? gerd, nutcracker syndrome abdominal gistention dr holder ??? ENT disease - rhinitus dr alex ??? Headache ? Skin disorder ?? acne Past Surgical History Procedure Date ??? Gastroenterology procedure [address] jimenez ??? Lap, cholecystectomy/graph 11/04/2012 LAPAROSCOPIC CHOLECYSTECTOMY WITH CHOLANGIOGRAM performed by Abel Carlton MD at [facility] MAIN OR History Substance Use Topics ??? Smoking status: Current Some Day Smoker -- 1.5 packs/day for 20 years Types: Cigarettes Last Attempt to Quit: 07/07/2013 ??? Smokeless tobacco: Never Used ??? Alcohol [...] III TM distance: >3 FB Neck ROM: full 11/04/12 EZ FM, Mac 3 Gr 1 Cardiovascular Assessment: Rhythm: regular Rate: normal Pulmonary Assessment: breath sounds clear to auscultation (+) decreased breath sounds Dental Assessment: Comment: Multiple broken and missing teeth. Patient states none loose. Extremely poor dentition Upper - stubs at gum level only Lower - no teeth left side of mouth. Remaining teeth poor condition [facility] Assessment: Patient is wearing No contact(s). IV access: Peripheral line Other exam findings: 20 g PIV right hand Anesthesia Plan: ASA 3 general, with a(n) intravenous induction 52 y.o. female with h/o C6-7 herniation and R UE paresthesias, active smoking and 40pk yr hx, and extensive digestive issuses(bloating, chronic diarrhea) following strangulated hernia repair several years ago, now being followed in GI clinic, presents for 2 level C5-7 ACDF. No documented/reported h/o anesthetic complications. Egg allergy - vomiting but no problems with Propofol during lap [facility] at [facility] in 2012. HTN GERD - moderately well controlled on dexilant Depression/anxiety COPD Multiple pulmonary nodules/granulomata Former smoker - quit Jul 2013, 2ppd x 20 yrs No recent URI Allergies: Albuterol(couldn't sleep), eggs(nausea) Wt: 73.5 kg UPT: negative NPO: solids 2130, liquids 0900(H2O) Code: Full 08/18/13 WBC 9.2, H?H 12.8/38.6, plts 313 Na 139, K 4.5, BUN 11, Cr 0.94, eGFR greater than 60 PT 12.2, INR 0.9 T&S outdates 09/11/13, Ab screen neg Plan for GA with ETT, 2 PIV +/- L sided A Line; standard ASA monitoring. Cefazolin 2 gm IV ordered by surgeon Region - Other Informed Consent: Anesthetic plan and risks discussed with patient. Use of blood products discussed with patient whom consented to blood products. [facility]. Assessment: documented in this encounter Plan of Treatment Not on file documented as of this encounter Visit Diagnoses Not on filedocumented in this encounter Administered Medications Inactive Administered Medications - up to 3 most recent administrations Medication Order MAR Action Action Date Dose Rate Site ceFAZolin (ANCEF) 2g in dextrose 5% 50 mL 2 g, Intravenous, ONCE, 1 dose, On Sat09/08/13 at 1000, To be administered upon arrival to the OR within one hour prior to incision., Day of Surgery (Day of Procedure), Indication for (Active or Suspected): Prophylaxis Given 09/08/2013 11:35 AM EST 2 g ePHEDrine Sulfate in sodium chloride 0.9% (PF) 50 mg/10 mL (5 mg/mL) injection Syrg PRN, Starting on Sat09/08/13 at 1136, Until Sat09/08/13 at 1508, Anesthesia Intra-op Given 09/08/2013 12:39 PM EST 5 mg Given 09/08/2013 12:06 PM EST 5 mg Given 09/08/2013 11:36 AM EST 10 mg fentaNYL 50mcg/mL injection PRN, Starting on Sat09/08/13 at 1112, Until Sat09/08/13 at 1508, Pain, Anesthesia Intra-op, Routine Given 09/08/2013 12:59 PM EST 100 mcg Given 09/08/2013 12:24 PM EST 50 mcg Given 09/08/2013 12:20 PM EST 50 mcg glycopyrrolate (ROBINUL) injection PRN, Starting on Sat09/08/13 at 1434, Until Sat09/08/13 at 1508, Anesthesia Intra-op, Routine Given 09/08/2013 2:34 PM EST 0.6 mg hydromorphone (DILAUDID) injection PRN, Starting on Sat09/08/13 at 1317, Until Sat09/08/13 at 1508, Pain, Anesthesia Intra-op, Routine Given 09/08/2013 2:10 PM EST 0.4 mg Given 09/08/2013 1:17 PM EST 0.6 mg lactated ringers infusion 1,000 mL 1,000 mL, at 100 mL/hr, Intravenous, CONTINUOUS, Starting on Sat09/08/13 at 1000, Until Sat09/08/13 at 1813, Day of Surgery (Day of Procedure) New Bag 09/08/2013 11:03 AM EST mL New Bag 09/08/2013 10:22 AM EST 1,000 mLs 100 mL/hr lactated ringers infusion CONTINUOUS PRN, Starting on Sat09/08/13 at 1121, Until Sat09/08/13 at 1508, Anesthesia Intra-op New Bag 09/08/2013 11:21 AM EST mL lidocaine (PF) (XYLOCAINE) 100 mg/5 mL (2 %) injection PRN, Starting on Sat09/08/13 at 1112, Until Sat09/08/13 at 1508, Anesthesia Intra-op, Routine Given 09/08/2013 11:12 AM EST 20 mg lidocaine (XYLOCAINE) 4 % external solution PRN, Starting on Sat09/08/13 at 1114, Until Sat09/08/13 at 1508, Anesthesia Intra-op Given 09/08/2013 11:14 AM EST 3 mLs midazolam (PF) (VERSED) 1 mg/mL injection PRN, Starting on Sat09/08/13 at 1102, Until Sat09/08/13 at 1508, Sleep, Anesthesia Intra-op, Routine Given 09/08/2013 11:02 AM EST 2 mg neostigmine (PROSTIGMINE) injection PRN, Starting on Sat09/08/13 at 1434, Until Sat09/08/13 at 1508, Anesthesia Intra-op, Routine Given 09/08/2013 2:34 PM EST 5 mg ondansetron (ZOFRAN) injection PRN, Starting on Sat09/08/13 at 1320, Until Sat09/08/13 at 1508, Nausea, Anesthesia Intra-op, Routine Given 09/08/2013 1:20 PM EST 4 mg propofol (DIPRIVAN) 10 mg/mL bolus injection (Anesthesia) PRN, Starting on Sat09/08/13 at 1112, Until Sat09/08/13 at 1508, Anesthesia Intra-op Given 09/08/2013 2:32 PM EST 20 mg Given 09/08/2013 11:12 AM EST 200 mg propofol (DIPRIVAN) infusion CONTINUOUS PRN, Starting on Sat09/08/13 at 1432, Until Sat09/08/13 at 1508, Anesthesia Intra-op, Routine New Bag 09/08/2013 2:32 PM EST 20 mcg/kg/mi n 8.8 mL/hr rocuronium (ZEMURON) injection PRN, Starting on Sat09/08/13 at 1112, Until Sat09/08/13 at 1508, Anesthesia Intra-op, Routine Given 09/08/2013 11:12 AM EST 50 mg vecuronium (NORCURON) injection PRN, Starting on Sat09/08/13 at 1144, Until Sat09/08/13 at 1508, Anesthesia Intra-op, Routine Given 09/08/2013 1:38 PM EST 2 mg Given 09/08/2013 12:52 PM EST 4 mg Given 09/08/2013 12:42 PM EST 4 mg documented in this encounter Care Teams Senior Education Specialist Relationship Specialty Start Date End Date Mary Alice Cage APRN PCP - General 10/12/11 11/12/18 documented as of this encounter
--- OUTSIDE RECORDS SUMMARY | 2024-03-17 18:34 | XMS_ITS | Encounter Summary ---
Author Organization [place] [id number] Care Team Providers Care Flight Technician Name Role Phone [place] Mary Alicepham Drew APRN Primary Care Provider [phone] Reason for Referral * Surgical (Urgent) - Closed Specialty Diagnoses / Procedures Referred By Chava t Referred To Contact Orthopaedics Diagnoses Dyspnea Osmany Holloway MD [facility] [place] [address] [facility] [address] [place] [phone] Referral ID Status Reason Start Date Expiration Date V isits Requested Visits Authorized [id number] Closed Consult, Test & Treat 10/27/2012 04/25/2013 1 1 Encounter Details Date Type Department Care Team (Late st Contact Info) Description 10/27/2012 Orders [place] [address] Osmany Holloway MD [facility] [place] [address] Dyspnea (Primary Dx) Social History Tobacco Use Types Packs/Day Years Used Date Smoking Tobacco: Every Day Cigarettes 2 20 Smokeless Tobacco: Never Sex and Gender Information Value Date Recorded Sex Assigned at Not on file Gender Identity Not on file Sexual Orientation Not on file documented as of this encounter Plan of Treatment Scheduled Referrals Name Type Priority Associated Diagnoses Order Schedule Referral to Orthopaedics Outpatient Referral Routine Dyspnea Ordered: 10/27/2012 documented as of this encounter Visit Diagnoses Diagnosis Dyspnea- Primary Other dyspnea and respiratory abnormality documented in this encounter Care Teams Flight Technician Relationship Specialty Start Date End Date Mary Alice Cage APRN PCP - General 10/12/11 11/12/18 documented as of this encounter
--- OUTSIDE RECORDS SUMMARY | 2024-03-17 18:34 | XMS_ITS | Encounter Summary ---
Author Organization [facility] [place] [address] Care Team Providers Care Roll Mechanic Name Role Phone Mary Alice Domingo MANUELA Primary Care Provider [phone] Encounter Details Date Type Department Care Team (Late st Contact Info) Description 03/10/2013 2:30 PM EDT Follow-[place] [address] Justin Starkey MD [facility] DR GASTRO[place] [address] Gas (Primary Dx); Bloating; Diarrhea Discharge Disposition: Home Social History Tobacco Use Types Packs/Day Years Used Date Smoking Tobacco: Every Day Cigarettes 1.5 20 Smokeless Tobacco: Never Alcohol Use Standard [...] Sign Reading Time Taken Comments Blood Pressure 160/100 03/10/2013 3:01 PM EDT Pulse - - Temperature - - Respiratory Rate - - Oxygen Saturation - - Inhaled Oxygen Concentration - - Weight 70.8 kg (156 lb) 03/10/2013 3:01 PM EDT Height 154.9 cm (5' 1) 03/10/2013 3:01 PM EDT Body Mass Index 29.48 03/10/2013 3:01 PM EDT documented in this encounter Progress Notes * Justin Starkey MD - 03/18/2013 10:15 AM EDT NEW GI CONSULTATION Poppy Mclaughlin Female, 52 yrs, 1960 PCP: MARY ALICE DOMINGO FELT FINISHER: NONE PLANNED GIVING OFFICER: [place] ([id number]) REFERRING PROVIDER(S) REASON FOR CONSULTATION I was asked to see her specifically for problems with recurrent gas and bloating. TIME SPENT WITH PATIENT A one-hour appointment was scheduled so that we could review her lengthy and complicated history; unfortunately, she showed up 30 minutes late. Total Minutes: 25 reviewing records at the time of our visit Minutes of [id number] Counseling: Greater than 30 minutes were spent in direct, [id number] counseling. HISTORY OF PRESENT ILLNESS This is a 52-year-old woman sent for formal evaluation and a third opinion in gastroenterology. Thepatient was seen for quite some time by Dr. Keller, and has been actively followed by Malia Vidal who works in our GI division. In brief, the patient has had significant problems with gas and bloating since an emergency hernia repair at [facility] in May 2011. She received antibiotics during that procedure and afterwards. Since then, she has had problems with gas and bloating. She has undergone an exhaustive workup. This is all outlined in previous notes by Ms. Vidal. In brief, a colonoscopy at [facility] was normal; upper endoscopy at [facility] was normal; she had a CT scan at 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 We had a lengthy discussion about gas and bloating and I reviewed her diet.We have decided on the following treatment plan: 1. Change her whole-wheat breads to white bread to minimize fiber. 2. Continue to avoid fructans, galactans, cruciferous vegetables. 3. Change milk products to lactose-free dairy products. 4. Ten-day course of neomycin at 500 mg p.o. t.i.d. 5. On the day following the neomycin trial, start the probiotic, Align, at 1 capsule each day for 90 days. 6. Call in 90 days. 7. Patient will follow up with her PCP as scheduled for her other medical issues. 8. As noted above, her chart was reviewed including allergies, medications, past medical history, past surgical history, family history. Justin Starkey, PhD, MD sports umpire, [facility] [employer] Section of Gastroenterology and Hepatology [facility] [place] [id number] V: [phone] F: [phone] MICKY/mian EC/CC: PCP Malia Vidal APRN documented in this encounter Plan of Treatment Not on file documented as of this encounter Visit Diagnoses Diagnosis Gas- Primary Flatulence, eructation, and gas pain Bloating Flatulence, eructation, and gas pain Diarrhea documented in this encounter Care Teams Roll Mechanic Relationship Specialty Start Date End Date Mary Alice Domingo APRN PCP - General 10/12/11 11/12/18 documented as of this encounter
--- OUTSIDE RECORDS SUMMARY | 2024-03-17 18:34 | XMS_ITS | Encounter Summary ---
Author Organization [facility] [address] Care Team Providers Care Head Bander And Liner Operator Name Role Phone Mary Alice Cage APRN Primary Care Provider Reason for Visit * Reason Onset Date Comments Medication Refill 12/05/2012 Encounter Details Date Type Department Care Team (Late st Contact Info) Description 12/05/2012 Refill [place] [address] Malia Vidal LICENSING ENGINEER [facility] [place] [address] Social History Tobacco Use Types Packs/Day Years [...] on filedocumented in this encounter Care Teams Head Bander And Liner Operator Relationship Specialty Start Date End Date Mary Alice Cage APRN PCP - General 10/12/11 11/12/18 documented as of this encounter
--- OUTSIDE RECORDS SUMMARY | 2024-03-17 18:34 | XMS_ITS | Encounter Summary ---
Author Organization [facility] [place] [address] Care Team Providers Care Station Supervisor Name Role Phone Mary Alice Cage MANUELA Primary Care Provider [phone] Encounter Details Date Type Department Care Team (Latest Contact Info) Description 07/11/2013 11:11 AM EST - 07/11/2013 11:59 PM [facility] Hospital [place] [address] CLINIC, Rios Morris MD [facility] [place] [place] [address] Herniated nucleus pulposus, C6-7 Right, with degenderative [...] daily. 09/09/2013 documented as of this encounter Miscellaneous Notes * Miscellaneous - Provider, Scanning - 07/22/2013 11:43 AM EST documented in this encounter Plan of Treatment Not on file documented as of this encounter Procedures Procedure Name Priority Date/Time Associated Diagnosis Comments MRI CERVICAL SPINE WO CONTRAST Routine 07/11/2013 12:15 PM EST Herniated nucleus pulposus, C6-7 Right, with degenderative changes documented in this encounter Results * MRI cervical spine WO contrast (07/11/2013 12:15 PM EST) Anatomical Region Laterality Modality C-spine Magnetic Resonan ce 07/11/2013 12:1 5 PM EST Narrative 07/11/2013 3:37 PM EST Examination MR Steffenine WO Nehemias Clinical History Cervical radiculopathy update imaging/last MRI was of low quality Comparison Comparison is made to the prior MRI performed October 23, 2012. Technique Routine noncontrast MRI of the cervical spine. Findings There is straightening of the cervical spine. ??The cervical cord signal appears normal. ??There is motion artifact noted throughout. C2-C3: ??There is a central disc extrusion which causes mild narrowing of the central canal. ??There is no significant foraminal stenosis. C3-C4: ??There is a minimal disc bulge, but no canal or foraminal stenosis. C4-C5: ??There is a broad posterior disc and osteophyte complex. ??There is no significant canal or foraminal stenosis. C5-C6: ??There is moderate facet degenerative change along with uncovertebral osteophyte causes moderate bilateral foraminal narrowing. ??There is mild central canal narrowing. C6-C7: ??There is a small central disc protrusion that extends to the right with mild narrowing of the central canal and foramina. C7-T1: ??There is no canal or foraminal stenosis. When compared with the prior study, the large right-sided foraminal disc extrusion at c 6-C7 has significantly improved. Impression Multilevel degenerative disc changes. ??Significant improvement in the disc extrusion on the right at C6-C7. Moderate foraminal narrowing bilaterally at C5-C6. Procedure Note Facundo Son MD - 07/11/2013 Examination MR Cspine WO Nehemias Clinical History Cervical radiculopathy update imaging/last MRI was of low quality Comparison Comparison is made to the prior MRI performed October 23, 2012. Technique Routine noncontrast MRI of the cervical spine. Findings There is straightening of the cervical spine. The cervical cord signalappears normal. There is motion artifact noted throughout. C2-C3: There is a central disc extrusion which causes mild narrowing ofthe central canal. There is no significant foraminal stenosis. C3-C4: There is a minimal disc bulge, but no canal or foraminal stenosis. C4-C5: There is a broad posterior disc and osteophyte complex. There isno significant canal or foraminal stenosis. C5-C6: There is moderate facet degenerative change along withuncovertebral osteophyte causes moderate bilateral foraminal narrowing. There is mild central canal narrowing. C6-C7: There is a small central disc protrusion that extends to the rightwith mild narrowing of the central canal and foramina. C7-T1: There is no canal or foraminal stenosis. When compared with the prior study, the large right-sided foraminal disc extrusion at c 6-C7 has significantly improved. Impression Multilevel degenerative disc changes. Significant improvement in the disc extrusion on the right at C6-C7. Moderate foraminal narrowing bilaterallyat C5-C6. Rios Acuna MD IMG MRI ORDERABLES documented in this encounter Visit Diagnoses Diagnosis Herniated nucleus pulposus, C6-7 Right, with degenderative changes Displacement of cervical intervertebral disc without myelopathy documented in this encounter Care Teams Station Supervisor Relationship Specialty Start Date End Date Mary Alice Cage APRN PCP - General 10/12/11 11/12/18 documented as of this encounter
--- OUTSIDE RECORDS SUMMARY | 2024-03-17 18:34 | XMS_ITS | Encounter Summary ---
[place] [address] Care Team Providers Care Limehouse Worker Name Role Phone Mary Alice Cage APRN Primary Care Provider [phone] Encounter Details Date Type Department Care Team (Late st Contact Info) Description 08/17/2013 External Results [place] [address] Provider, Scanning Social History Tobacco Use Types Packs/Day Years [...] Procedure Name Priority Date/Time Associated Diagnosis Comments EKG 12-LEAD Routine 08/17/2013 documented in this encounter Results * EKG 12 Lead (08/17/2013) Scanning Provider ECG ORDERABLES documented in this encounter Visit Diagnoses Not on filedocumented in this encounter Care Teams Limehouse Worker Relationship Specialty Start Date End Date Mary Alice Cage APRN PCP - General 10/12/11 11/12/18 documented as of this encounter
--- OUTSIDE RECORDS SUMMARY | 2024-03-17 18:34 | XMS_ITS | Encounter Summary ---
[facility] Organization [facility] [address] Care Team Providers Care Dental Scheduling Coordinator Name Role Phone Mary Alice Cage MANUELA Primary Care Provider [phone] Encounter Details Date Type Department Care Team (Late st Contact Info) Description 11/04/2012 1:47 PM EDT - 11/04/2012 3:45 PM EDT [place] [phone] Abel Rhoades MD [facility] [place] [address] LAPAROSCOPIC CHOLECYSTECTOMY WITH CHOLANGIOGRAM (WRVU 11.47) Social History Tobacco Use Types Packs/Day Years [...] Sign Reading Time Taken Comments Blood Pressure 148/92 11/04/2012 4:16 PM EDT Pulse 75 11/04/2012 4:16 PM EDT Temperature 36.9 ??C (98.4 ??F) 11/04/2012 3:15 PM ED T Respiratory Rate 20 11/04/2012 4:16 PM EDT Oxygen Saturation 91% 11/04/2012 4:16 PM EDT Inhaled Oxygen Concentration - - Weight 70.8 kg (156 lb) 11/04/2012 1:11 PM EDT Height 154.9 cm (5' 1) 11/04/2012 1:11 PM EDT Body Mass Index 29.48 11/04/2012 1:11 PM EDT documented in this encounter Discharge Instructions * Discharge Instructions* Nina Garza RN - 11/04/2012 4:18 PM EDT POST ANESTHESIA INSTRUCTIONS Go home, rest, use caution on stairs. Change positions slowly. Do not smoke if you are alone. Diet light to regular as tolerated today. If nausea occurs start with clear liquids and progress slowly. No driving, operating machinery, alcoholic beverages and no important decisions for 24 hours. Monitor IV site for signs and symptoms of infection: increasing redness, swelling, foul drainage, if occurs contact M.D. Patients who have had endotrachial tubes (this tube, used by anesthesia department, is passed down your throat after you are asleep, to ensure safe air passage during your operation). A sore throat is normal due to the tube. Cold liquids or soothing lozenges will help ease the discomfort. The generalized muscle aches are due to the medication given to you just before the tube is inserted. As the medication wears off, you may develop muscle soreness, which usually goes away in 12-24 hours. * Patient Instructions* Gal Ferrell - 11/04/2012 3:11 PM EDT Instructions following Laparoscopic Cholecystectomy: Wound Care: Keep dressings/Band-Aids on your incisions for the next 2 days. Do not get the dressings wet. If they become wet or soaked with drainage you may change them as needed. If there are piecesof white tape (steri-strips or butterflys) directly on the incision, please leave these in place until they fall off on their own. You may trim them back if the edges begin to peel. After 2 days remove all dressings (except steri-strips/butterflys) and leave the incisions open to the air. You may shower and let warm soapy water pass over the incisions. Do not scrub vigorously for the next 2-3 weeks. Do not soak your incision(s) under water for the next 2 weeks (i.e. soaking henrry bath or swimming) as this may promote a wound infection. Your stitches will dissolve and do not need to be removed. Activity: No heavy lifting (greater than 10-15 pounds) for the next 2 weeks, then you may graduallylift heavier objects as tolerated. Otherwise, resume activities as tolerated by your comfort level. Call Doctor for: Please call if you notice worsening redness or drainage from the incision(s), foul-smelling drainage from the incision, pain not controlled by pain medications, persistent nausea or vomiting, or for any fevers greater than 101.3 F. The number for questions is [phone] before 5 PM weekdays and [phone] after 5 PM and weekends. Pain Medication: No driving for 8 hours after any dose of Percocet. You may use ibuprofen (motrin, advil) in addition if your pain is not totally controlled. Follow-up: A follow-up appointment will be scheduled with Dr. Rhoades in 4-6 weeks. The appointment will be mailed to you. Please call [phone] (clinic number for appointments) to confirm the date and time of your appointment if you do not receive your apointment in 2 weeks. documented in this encounter Medications at Time of Discharge Medication Sig Dispensed Refills Start Date End Date MULTIVITAMIN ORAL Take 2 tablets by mouth daily. ASCORBATE CALCIUM (VITAMIN C ORAL) Take 1 tablet by mouth daily. cholecalciferol, Vitamin D3, 400 unit tablet Take 400 Units by mouth daily. loratadine (CLARITIN) 10 mg tabletIndications:Mult iple nodules of lung Take 10 mg by mouth daily. OXYcodone (ROXICODONE) 5 mg immediate release tablet Take 1 tablet by mouth every 4 hours as needed for Pain (mild to moderate pain). 30 tablet 0 11/04/2012 12/09/2012 CALCIUM ORAL Take by mouth. 12/09/2012 VITAMIN B COMPLEX ORAL Take 1 tablet [...] mouth daily. 90 tablet 3 08/19/2012 07/14/2021 diphenoxylate-atropine (LOMOTIL) 2.5-0.025 mg per tablet Take 1 tablet by mouth 4 times daily as needed for Diarrhea. 120 tablet 0 07/10/2012 12/09/2012 dexlansoprazole (DEXILANT) 60 mg CpDM Take 60 mg by mouth 2 times daily. 60 tablet prn 05/28/2012 10/21/2013 dicyclomine (BENTYL) 10 mg capsule Take 1 capsule by mouth 4 times daily. 120 capsule 5 05/26/2012 12/05/2012 acetaminophen (TYLENOL EXTRA STRENGTH) 500 mg tablet Take 1,000 mg by mouth 4 times daily. 09/09/2013 ibuprofen (ADVIL;MOTRIN) 600 mg tablet Take 600 mg by mouth. Takes 2-3 times daily. 09/09/2013 documented as of this encounter Progress Notes * Eva Álvarez RN - 11/04/2012 5:20 PM EDT Patient discharge to home. IV removed, site benign. My assessment remains unchanged from my previous assessment. RN Discussed pain management with patient, pain tolerable. Patient has all belongings and supplies needed. Patient received After Visit Summary and prescriptions. These were reviewed, patient verbalizes understanding of AVS. All questions answered. Patient encouraged to call with questions or concerns. Patient discharged to home with family. documented in this encounter H&P Notes * Abel Rhoades MD - 11/04/2012 1:01 PM EDT No change from 10/27/12 note. documented in this encounter Miscellaneous Notes * Miscellaneous - Provider, Scanning - 11/04/2012 11:27 PM EDT * Op Note - Abel Rhoades MD - 11/04/2012 3:04 PM EDT [facility] [place] Patient Name: Poppy Pino : [id number] MR#: [id number] Case Date: 11/04/2012 Surgeon: Surgeon(s) and Role: * Abel Rhoades MD - Primary * Gal Ferrell MD Preoperative diagnosis: GALLSTONES Postoperative diagnosis: GALLSTONES Procedure(s): LAPAROSCOPIC CHOLECYSTECTOMY WITH CHOLANGIOGRAM General Estimated Blood Loss: 5cc Drains: none Disposition: awakened from anesthesia, extubated and taken to the recovery room in a stable condition, having suffered no apparent untoward event. Condition: doing well without problems This 52 y.o. female presented with a history of recurrent biliary colic and episodes consistent with cholecystitis. Investigations revealed gallstones and her symptoms being consistent with repeated biliary colic. Informed consent was obtained for cholecystectomy. Under general anesthesia and endotracheal intubation, the patient was prepped and draped in the supine position. After appropriate time-out procedure, the patient was confirmed to receive preoperative antibiotics and VTE prophylaxis. The abdomen was insufflated by first achieving access with a Veress needle in a small subumbilical incision. After adequate insufflation with CO2 to a pressure of 15 mmHg, the Veress needle was removed, and a 10-mm port was placed through this incision. A 30-degree telescope was inserted, and some omental adhesions were noted inthe umbilical region. A closer inspection of the abdominal cavity revealed some adhesions to the gallbladder with a slightly distended gallbladder. No other abnormalities were noted. Next, 5-mm ports were placed in the subxiphoid region and in the right upper quadrant and in the lateral aspect of the right mid abdominal wall. The fundus of the gallbladder was then grasped and retracted in a cephalad direction. The infundibulum was then placed under lateral traction and pulled inferiorly. Sharp and blunt dissection using hook cautery and graspers was used to free the gallbladder of any peritoneal attachments. Hook cautery was then used to completely skeletonize the cystic artery and cystic duct completely clearing the triangle of Calot and achieving a critical view of safety. The duct appeared somewhat large. The proximal cystic duct on the gallbladder end was then ligated with a clip, and a small ductotomy was made. Half-strength Hypaque was used after first threading a catheter through the ductotomy. With continuous fluro, the duct was injected, and we were able to image a normal-appearing common bile duct and intrahepatic ducts. Filling of the duodenum was noted. The catheter was then removed and the cystic duct doubly clipped and divided. The cystic artery was similarly clipped and divided. Hook cautery was then used to free the gallbladder from the liver bed. After adequate hemostasis was assured on the liver bed, the gallbladder was grasped by the neck, placed in a bag and fed through the umbilical port and removed. Some adhesions to her past hernia were taken down near her umbilicus, no bowel injury was noted. Re-inspection of the abdominal cavity revealed no ongoing bleeding or bile spillage or leak. All ports were then removed under direct vision. Fascia to the 10-mm port site was closed with interrupted [id number] 0-Vicryl suture followed by running subcuticular 4-0 Vicryl suture, Steri-Strips and Band-Aids to all skin sites. The patient returned to the Recovery Room in stable condition. Sponge and instrument counts were correct. Specimen Sent to Pathology: Gallbladder and contents. * OR Attestation - Abel Rhoades MD - 11/04/2012 3:04 PM EDT Attestation: Case Date: 11/04/2012 I was present and I participated during the entire procedure (does not need to include opening and closing). ABEL RHOADES MD 11/04/2012 * Miscellaneous - Provider, Scanning - 11/04/2012 12:14 PM EDT documented in this encounter Plan of Treatment Pending Results Name Type Priority Associated Diagnoses Date /Time XR Fluoro OR c-arm storage only Imaging Routine 11/04/2012 3:19 PM EDT Scheduled Orders Name Type Priority Associated Diagnoses Orde r Schedule XR Fluoro OR c-arm storage only Imaging Routine Once PRN (for Ra diant use) for 1 Occurrences starting 11/04/2012 until 11/04/2012 documented as of this encounter Procedures Procedure Name Priority Date/Time Associated Diagnosis Comments SURGICAL PATHOLOGY REPORT Routine 11/04/2012 2:55 PM EDT SPECIMEN TO PATHOLOGY Routine 11/04/2012 2:45 PM EDT LAPAROSCOPIC CHOLECYSTECTOMY WITH CHOLANGIOGRAM (WRVU 11.47) 11/04/2012 1:31 PM EDT GALLSTONES documented in this encounter Results * Surgical Pathology Report (11/04/2012 2:55 PM EDT) Surgical Pathology Report ? [facility] ? Provider: ?? ABEL RHOADES ? Pt. Name: ?? POPPY PINO ? Acc #: ?[id number] ?Pt. ? Col Date: ?? 11/04/2012 ? /Sex: ?1960,(52 years),Female ? Rec Date: ?? 11/04/2012 ? LOC: ?[facility] ? SURGICAL PATHOLOGY ? ---Pathologic Diagnosis--- ? Gallbladder, cholecystectomy : ?Chronic cholecystitis. ? CR-0 ? 11/06/12 ? [facility] ? 11/07/12 Verified by: ? Nadir Guy MD ? Pathologist ? (Electronic Signature) ? The attending pathologist whose signature appears on this report has ? reviewed all diagnostic slides and has edited the gross and/or ? microscopic portion of the report in rendering the final pathologic ? diagnosis. ? ---Microscopic Description--- ? Slides reviewed, microscopic description not recorded. ? ---Gross Description--- ? Labeled/Fixativ e: ? Gallbladder, fresh. ? Qty/Size/Weight : ?One, 8.0 x 3.5 x 0.7 cm. ? Tissue Description: ?? Intact gallbladder with dilated cystic duct. ?External surface: ??Smooth, glistening except for where it is cauterized. ?Lumen contents: ?Bloody, yellow, viscid bile. ??No choleliths ? identified. ?Mucosa: ?Flattened, smooth, without the usual velvety ? appearance. ?Wall: ?Uniform and 0.1 cm thick. ?Duct: ?Patent and dilated with a diameter of 0.6 cm. ? Sections/Proces sing: ??(R1) ??aje/CPH ? ---Clinical Information--- ? Specimen Submitted: ? A - Gallbladder ? Clinical History: ? Gallstones ? Clinical Diagnosis: ? Gallstones VIKTOR TODD 11/04/2012 2:55 PM EDT Abel Rhoades MD PATHOLOGY/CYTOLOGY O RODDY Performing Organization Address [facility] Co de Phone Number VIKTOR TODD * Specimen to Pathology (surgical or derm) (11/04/2012 2:45 PM EDT) AP Specimen 11/04/2012 2:45 PM EDT 11/04/2012 2:45 PM EDT Narrative VIKTOR TODD - 11/04/2012 2:45 PM EDT Specimen requisition ordered. ??Separate Pathology report to follow Abel Rhoades MD PATHOLOGY/CYTOLOGY O RODDY Performing Organization Address [facility] Co de Phone Number VIKTOR TODD documented in this encounter Visit Diagnoses Not on filedocumented in this encounter Administered Medications Inactive Administered Medications - up to 3 most recent administrations Medication Order MAR Action Action Date Dose Rate Site HYDROmorphone (DILAUDID) injection 0.2-0.4 mg 0.2-0.4 mg, Intravenous, EVERY 5 MIN PRN, Starting on Sat11/04/12 at 1522, Until Sat11/04/12 at 0, Pain, For moderate pain give: 0.2 mg every 5 minute prn For severe pain give: 0.4 mg every 5 minutes prn Maximum dose: 4 mg per hour Hold for respiratory rate less than 10 per minute., PACU Recovery, Routine Given 11/04/2012 4:17 PM EDT 0.4 mg Given 11/04/2012 4:03 PM EDT 0.2 mg Given 11/04/2012 3:47 PM EDT 0.4 mg lactated ringers infusion 1,000 mL 1,000 mL, at 100 mL/hr, Intravenous, CONTINUOUS, Starting on Sat11/04/12 at 1345, Until Sat11/04/12 at 2049, Day of Surgery (Day of Procedure) New Bag 11/04/2012 1:45 PM EDT 1,000 mLs 100 mL/hr OXYcodone (ROXICODONE) immediate release tablet 10 mg 10 mg, Oral, EVERY 4 HOURS PRN, Starting on Sat11/04/12 at 1511, Until Sat11/04/12 at 2049, Pain, severe pain, May give additional 5 mg in 30 minutes times 1 if pain not relieved., Routine Given 11/04/2012 4:09 PM EDT 10 mg documented in this encounter Active and Recently Administered Medications Times are shown in EDT. Continuous Medication Order 11/02/2012 11/03/2012 11/04/2012 lactated ringers infusion 1,000 mL (CANCELED) 1,000 mL, at 100 mL/hr, Intravenous, CONTINUOUS, Starting on Sat11/04/12 at 1345, Until Sat11/04/12 at 2049, Day of Surgery (Day of Procedure) 1345 (New Bag - Prov ider: Kaia Rivera RN) PRN Medication Order 11/02/2012 11/03/2012 11/04/2012 HYDROmorphone (DILAUDID) injection 0.2-0.4 mg (CANCELED) 0.2-0.4 mg, Intravenous, EVERY 5 MIN PRN, Starting on Sat11/04/12 at 1522, Until Sat11/04/12 at 2049, Pain, For moderate pain give: 0.2 mg every 5 minute prn For severe pain give: 0.4 mg every 5 minutes prn Maximum dose: 4 mg per hour Hold for respiratory rate less than 10 per minute., PACU Recovery, Routine 1532 (Given - Provid er: Nina Garza RN)1541 (Given - Provider: Nina Garza RN)1547 (Given - Provider: Nina Garza RN)1603 (Given - Provider: Nina Garza RN)1617 (Given - Provider: Nina Garza RN) OXYcodone (ROXICODONE) immediate release tablet 10 mg (CANCELED)(Linked Group 1) 10 mg, Oral, EVERY 4 HOURS PRN, Starting on Sat11/04/12 at 1511, Until Sat11/04/12 at 2049, Pain, severe pain, May give additional 5 mg in 30 minutes times 1 if pain not relieved., Routine 1609 (Given - Provid er: Nina Garza RN) OXYcodone (ROXICODONE) immediate release tablet 5 mg(Linked Group 1) 5 mg, Oral, EVERY 4 HOURS PRN, Starting on Sat11/04/12 at 1511, Until Sat11/04/12 at 2049, Pain, mild to moderate pain, May give additional 5 mg in 30 minutes times 1 if pain not relieved. , Routine 1609 (See Alternativ e - Provider: Nina Garza RN) Linked Groups Order Group 1: OXYcodone (ROXICODONE) immediate release tablet 5 mgJump to med 5 mg, Oral, EVERY 4 HOURS PRN, Starting on Sat11/04/12 at 1511, Until Sat11/04/12 at 0, Pain, mild to moderate pain, May give additional 5 mg in 30 minutes times 1 if pain not relieved. , Routine Or OXYcodone (ROXICODONE) immediate release tablet 10 mg (CANCELED)Jump to med 10 mg, Oral, EVERY 4 HOURS PRN, Starting on Sat11/04/12 at 1511, Until 11/04/12 at 0, Pain, severe pain, May give additional 5 mg in 30 minutes times 1 if pain not relieved., Routine documented in this encounter Care Teams Dental Scheduling Coordinator Relationship Specialty Start Date End Date Mary Alice Cage APRN PCP - General 10/12/11 11/12/18 documented as of this encounter
--- OUTSIDE RECORDS SUMMARY | 2024-03-17 18:34 | XMS_ITS | Encounter Summary ---
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 Operator Name Role Phone Mary Alice Domingo MANUELA Primary Care Provider [phone] Encounter Details Date Type Department Care Team (Late st Contact Info) Description 09/08/2013 10:58 AM EST - 09/08/2013 2:26 PM EST Surgery [place] [id number] Rios Gonzalez MD [facility] [address] [facility] [place] [id number] ARTHRODESIS, ANT INTERBODY,DECOMPRESSIO N; CERVICAL BELOW C2 (WRVU 25) Social History Tobacco Use Types Packs/Day Years [...] Sign Reading Time Taken Comments Blood Pressure 129/70 09/09/2013 1:00 PM EST Pulse 85 09/09/2013 1:00 PM EST Temperature 37 ??C (98.6 ??F) 09/09/2013 1:00 PM EST Respiratory Rate 19 09/09/2013 1:00 PM EST Oxygen Saturation 95% 09/09/2013 1:00 PM EST Inhaled Oxygen Concentration - - Weight 73.5 kg (162 lb) 09/08/2013 9:54 AM EST Height 154.9 cm (5' 1) 09/08/2013 9:54 AM EST Body Mass Index 30.61 09/08/2013 9:54 AM EST documented in this encounter Discharge Instructions * Discharge Instructions* Mahnaz Fischer PA - 09/09/2013 4:23 PM EST Activity: 1. You may perform [...] with adequate amounts of protein and fiber. For the next week or so, you may need to eat softer foods such as applesauce, scrambled eggs, or mashed potatoes. Take small bitesand chew carefully. Cold foods like popsicles may feel good on your throat. 2. The pain medications you are taking can cause constipation, so increase your intake of fluids and fiber while you are taking them. 3. You should also take an ycud-xor-ajxkbmr stool softener, such as Colace or Senna, to facilitate a bowel movement. Voiding (Urinating): For the next few days, monitor your urination at home. You should be going to the bathroom at least every 4 hours to urinate. Use the hats (white basins) in your toilet to helpmeasure the amount of urine you are making. You should make about 200-300 cc of urine every 4 hours. If you cannot urinate at all after 4-6 hours, you should go to your primary doctor's office, urgentcare, or emergency room. Drivin. You are not allowed to drive if you are still requiring narcotic pain medication to manage your discomfort. 2. Since you are being sent home in a Cervical Collar, do not drive until you have been cleared by your physician at your follow-up appointment. Call the Spine Center or your Primary Care Physician if you have questions or concerns. Medication: 1. You are being discharged on a narcotic pain medication- Dilaudid. Common side effects of this medication include drowsiness, nausea, and constipation. You should only take the smallest amount of pain medication that adequately controls your pain. As your pain gets better, decrease the amount of Dilaudid you are taking and space doses further apart. 2. You may take Tylenol (acetaminophen) around the clock as directed on the package insert for the next 10 days to help reduce the amount of narcotic medication you need. Do not exceed 3000 mg of acetaminophen in 24 hrs. You have had a spinal fusion surgery. DO NOT take any NSAID medication such as Aleve, Ibuprofen, Motrin, Naprosyn, or Advil. Also, DO NOT restart your home medication of Toradol! This can slow down the healing of your fusion. 3. If you need a renewal of your pain medication, please contact the [facility] [place] Prescription Lineat [phone]. PRESCRIPTION RENEWAL REQUESTS CAN TAKE UP TO 3 DAYS TO FILL. YOU WILL BE REQUIRED TO CERTIFIED WELDING INSPECTOR YOUR NARCOTIC REFILL PRESCRIPTION IN PERSON AT [facility] [place] OR IT CAN BE MAILED TO YOUR PHARMACY. [place] J Collar Instructions: 1. You are being sent home with a hard cervical collar. It must be worn at all times, including showers and while sleeping. 2. If you are required to wear the collar at all times, you may shower as usual with the collar in place. You will need to remove the collar to dry your skin and change the pads. While sitting upright, hold you head and neck steady while the front or back of your collar is removed. You should hold your head in place until the collar is back in position. After showers you should take care to remove any residual soap from your neck and to replace the wet pads with a clean, dry pair. You will be sent home from the hospital with extra pads and instructions on how to change them. 3. Do not put powder or lotion underneath the pads. 4. You should inspect your skin daily for redness or irritation caused by the collar. If you noticeirritation or you see areas where the hard plastic from the collar is pressing against the skin, please call the [facility] Nursing Line at the number below. 5. Wash the extra pads with mild soap, rinse well, and allow to air dry. Wound Care/Shower/Bath: 1. For the first 72 hours after surgery (until September 12), shower with a clear plastic Tegaderm dressing covering your wound to keep it dry. 2. After 72 hours (after September 12) you may remove the plastic dressing. At this point you may allow water to run over the wound but do not scrub the surrounding skin. Gently pat dry with a clean,dry towel. 3. At this time you may replace the plastic dressing with clean, dry gauze held in place with tape.Any bandage over the wound should be dry at all times and should be replaced if wet. 4. 4 days after surgery (after September 12) the wound can be left uncovered if there is no continued drainage. (You should continue to cover the wound for as long as there is continued drainage, please see the section below on when to call the Spine Center.) 5. Do not soak the incision underwater (ie lakes, pools, hot tubs, bath tubs, etc) for at least twoweeks until the incision has completely healed. 6. After the gauze dressing is removed the paper strips (steristrips) should be kept in place. You have absorbable sutures under your skin that do not need to be removed. They are covered by the steri-strips. The steri-strips may begin to fall off, and you may trim them as they peel back. After 14 days (September 22) you can remove the remaining steri-strips if they have not fallen off already. PLEASE CALL US AT [phone] TO SPEAK WITH A SPINE CENTER NURSE [...] Important Phone Numbers: Clinical issues, nurse questions: [phone] Medication renewals: [phone] Appointments for Marielena Gonzalez: [phone] Follow Up Appointments: You will have follow-up appointments at [facility] [place] as indicated in the ???Future Appointments and Orders?? section of your discharge summary. If X-rays have been ordered for you prior to this appointment you will need to report to the Radiology department, desk 3T, 1 hour prior to your spine center appointment. X-rays in Radiology 3T prior to follow up appointment: October 05 at 10:20 AM. Follow up appointment with Dr. Gonzalez in Orthopedics 3D: October 05 at 11:20 AM. Future Appointments Date Time Provider Department Center 10/05/2013 11:20 AM Rios Gonzalez MD [facility] 11/24/2013 1:00 PM Justin Starkey MD [facility] If you have questions or concerns: Saturday through Saturday, 8 AM- 5 PM, please call Dr. Gonzalez's office at . If it is after 5 PM or on the weekend, please call and ask for orthopedic resident on-call to be paged. documented in this encounter Medications at Time [...] by mouth daily. loratadine (CLARITIN) 10 mg tabletIndications:M ultiple nodules of lung Take 10 mg by mouth daily. acetaminophen (TYLENOL) 500 mg tablet Take 2 tablets by mouth every 8 hours for 7 days. After 7 days, may take Tylenol every 8 hours as needed for pain, DO NOT take more than 3000 mg in a 24 hour period. 42 tablet 0 09/09/2013 09/16/2013 hydromorphone (DILAUDID) 2 mg tablet Take 1-3 tablets by mouth every 4 hours as needed for Pain (as pain gets better, VERY important to decrease dose of Dilaudid and space doses further apart. ). 80 tablet 0 09/09/2013 09/17/2013 senna-docusate (PERICOLACE) 8.6-50 mg per tablet Take 1-4 tablets by mouth 2 times daily. 60 tablet 2 09/09/2013 10/05/2013 polyethylene glycol (MIRALAX) 17 gram/dose powder Take 17 g by mouth daily. 255 g 0 09/09/2013 10/05/2013 bisacodyl (DULCOLAX, BISACODYL,) [address] 1 suppository rectally daily. Use once a day until you have your first bowel movement, then use as needed for constipation or if no BM in 48 hours. 3 suppository 0 09/09/2013 10/05/2013 diphenoxylate-atrop ine (LOMOTIL) 2.5-0.025 mg per tablet Take 1 [...] by mouth. 09/13/2017 pseudoephedrine (SUDAFED) 30 mg tabletIndications:M ultiple nodules of lung Take 30 mg by mouth every 4 hours as needed. 08/11/2015 guaiFENesin (ROBITUSSIN) 100 mg/5 mL syrupIndications:Mu ltiple nodules of lung Take 200 mg by mouth 3 times daily as needed. 12/20/2016 fluticasone (FLONASE) 50 mcg/actuation nasal sprayIndications:Rh initis 1 spray by Each Nare route 2 times daily. 16 g 12 08/28/2012 11/07/2013 ipratropium (ATROVENT) 0.06 % nasal sprayIndications:Rh initis 2 sprays by Nasal route 4 times daily. 15 mL 12 08/28/2012 10/21/2013 citalopram (CELEXA) 40 mg tablet Take 1 tablet by mouth daily. 90 tablet 3 08/19/2012 07/14/2021 dexlansoprazole (DEXILANT) 60 mg CpDM Take 60 mg by mouth 2 times daily. 60 tablet prn 05/28/2012 10/21/2013 documented as of this encounter Progress Notes * Felipa Noble RN - 09/09/2013 4:39 PM EST Patient for D/C this afternoon. Scripts sent to pharmacy, dressing/showering supplies provided, IVsremoved. Voiding diary and 'hats' provided with instructions on use. Reviewed collar care with who states that he did collar care this morning and feels comfortable with the same. Patient declined walker for home use but when informed that PT had cleared her for D/C with a walker she agreedto take one home. Pain well controlled. D/C summary previded and question answered. 1700: Patient discharged home in stable condition. * Nissa Bah RN - 09/09/2013 3:34 PM EST Patient has had issues with voiding today. She started with no void and high PVR's and has progressed to voiding larger amounts with smaller PVR's . She has been followed by nursing and the ortho GRADING CLERK Mahnaz Fischer. The patients last void was 400cc with a PVR of 184cc. The ortho GRADING CLERK is aware of. * Isidoro Quezada - 09/09/2013 3:18 PM EST Neck drain with 10cc of output over 12 hours, removed at 1500. Tip intact. Pt tolerated procedure well. Dry sterile dressing applied. * Yasmani Ivory RN - 09/09/2013 12:07 PM EST S: My is going to stay home with me for about a wk. O: Chart reviewed and met with pt who is sitting up in cardiac chair answering questions with a raspy voice. Pt had C5-[address] Gonzalez. Pt's voice improved after I gave her a popsciclePt is , disabled amy, not employed, and lives in [place], [place]. Pt denies the need for VNAservices and feels she and her can manage. Pt requests a Jr FWW and has not preference so I have ordered from [facility] who will deliver to her room this afternoon. A: Progressing toward d/c to home with family assist. P: Will follow, anticipate d/c in 24 hrs. * Rios Gonzalez MD - 09/09/2013 6:46 AM EST Orthopaedic Surgery Inpatient Progress Note Poppy Mclaughlin is a 52 y.o. female who underwent C5-7 ACDF on 09/08/13. Date of Admission:09/08/2013 Hospital Day 1 day Active Hospital Problems Diagnosis ??? Herniated nucleus pulposus, C6-7 Right, s/p C5-7 ACDF 09/08/13 Resolved Hospital Problems Diagnosis Date Resolved No resolved problems to display. Subjective: The patient is is doing well this morning. Pain is under control. Able to swallow pudding and pills. Some nausea overnight but improved this morning. Pre-op arm, shoulder pain is improved. Denies headache/photophobia/CP/SOB. Objective: Vital signs stable. Last value Range last 12 hrs Temperature Temp: 36.9 ??C (98.4 ??F) Temp: [36.9 ??C (98.4 ??F)-37.1 ??C (98.8 ??F)] Heart Rate Heart Rate: 92 Heart Rate: [92-96] Blood Pressure BP: 125/74 mmHg BP: (120-129)/(69-74) Respiratory Rate Resp: 20 Resp: [18-20] SpO2 SpO2: 95 % SpO2: [94 %-95 %] Intake/Output Summary (Last 24 hours) at 09/09/13 0701 Last data filed at 09/09/13 0544 Gross per 24 hour Intake 4188 ml Output 1395 ml Net 2793 ml Drain: 80cc overnight Physical Exam: General: alert and oriented and no apparent distress Neuro: CN II - XII intact Cardio Vascular: RRR checked peripherally Abdomen:soft, non-tender and non-distended Dressing is clean, dry and intact C-collar in place Extremity Exam: Calves:soft and non-tender Sensory: intact C5- T1 Bilaterally Motor Function: Segment Muscle Action Right Left C 5 Deltoid Shoulder Abduction 5 5 C 5 Biceps Elbow Flexion 5 5 C 6 Ext Carpi Radialis Wrist Extension 5 5 C 7 Triceps Elbow extension 5 5 C 8, T 1 Hand Intrinsic Grasp 5 5 L 2 Illiopsoas Hip flexion 5 5 L 3 Quadraceps Knee extension 5 5 L 4 Tibialis anterior Dorsiflexion 5 5 L 5 Extensor hallucis Great toe extension 5 5 S 1 Gasrocnemius Plantar flexion 5 5 Imaging: Post-op films reviewed. Appropriate alignment. Hardware in position Laboratory No results found for this basename: WBC, Hgb, HCT, PLATELET, INR, PT, PTT, K, SODIUM, CALCIUM, CHLORIDE, HCO3, GLUCOSE, BUN, CREATININE, UNCONESRIOL, CRP Assessment: 52 yo F s/p above procedure. Doing well. Stable and neuro intact with improvement of pre-op symptoms. No clinical signs of CSF leak. Plan to d/c drain later this morning. Likely able to d/c later this afternoon if pain continues to be well controlled. Plan: Cervical collar at all times ?? DVT Plan: Mechanical compression ?? Change dressing daily, starting POD #2. ?? Antibiotics: Ancef x 24 hours ?? Pain Control: oral analgesia ?? Discharge Planning: Follow up in 4 weeks with Cervical XR as scheduled. VITO KUMARI MD 09/09/2013 Spine Attending I have seen and examined the patient and agree with the resident's finding and plan. Pt doing well,having expected surgical site pain, no RUE pain. Swallowing soft food and liquids without difficulty. On exam, has no numbness or weakness. Can likely be d/c'ed home today. F/U in 4 wks as scheduled. * Rios Gonzalez MD - 09/08/2013 6:46 PM EST Orthopaedic Surgery Post-Operative Progress Note Surgery: C5-7 ACDF Patient Active Problem List Diagnosis Code ??? Abdominal distention 787.3 ??? Multiple nodules of lung 793.19 ??? Dyspnea 786.09 ??? Biliary colic 574.20 ??? Herniated nucleus pulposus, C6-7 Right, with degenderative changes 722.0 Subjective/Events: Patient denies chest pain, shortness of breath, dizziness, headache, abdominal pain, hoarseness, difficulty swallowing. Some nausea, controlled with IV medicines. Pain well-controlled. Objective: Vitals: Temp: [36.7 ??C (98.1 ??F)-36.9 ??C (98.4 ??F)] Heart Rate: [91-98] Resp: [12-18] BP: (123-156)/(69-100) SpO2: [94 %-100 %] I/O this shift: In: 1400 [I.V.:1400] Out: 665 [Urine:615; Blood:50] Exam: General: NAD, awake/alert, responds to questions Neck: [place] J collar in place, left on with neck incisional dressings c/d/i Resp: Breathing comfortably Abd: Soft, nontender, nondistended. Back: Dressing c/d/i, no hematoma RUE: Sensation intact to light touch in: Axillary (C5-C6) Radial (C6-C8) Median (C5-C8) Ulnar (C8-T1) Motor intact to wrist flexion/extension, digit flexion/extension Brisk capillary refill distally, fingers warm/well-perfused. LUE: Sensation intact to light touch in: Axillary (C5-C6) Radial (C6-C8) Median (C5-C8) Ulnar (C8-T1) Motor intact to wrist flexion/extension, digit flexion/extension Brisk capillary refill distally, fingers warm/well-perfused. RLE: Sensory intact to light touch in: Femoral (ant thigh, medial leg, post foot - L2-L4), Sural (post/lat leg, lat ankle/foot - S1/S2) Sup peroneal (Dorsum foot - L4-S1) Deep peroneal (1st web space - L4/L5) Saphenous (medial leg - L3/L4) Motor intact to FHL/EHL/TA Brisk capillary refill distally, foot warm/well-perfused LLE: Sensory intact to light touch in: Femoral (ant thigh, medial leg, post foot - L2-L4), Sural (post/lat leg, lat ankle/foot - S1/S2) Sup peroneal (Dorsum foot - L4-S1) Deep peroneal (1st web space - L4/L5) Saphenous (medial leg - L3/L4) Motor intact to FHL/EHL/TA Brisk capillary refill distally, foot warm/well-perfused No results found for this basename: WBC:3,HGB:3,HCT:3,PLATELET:3,NA:3,K:3,CL:3,CO2:3,BUN:3,CREATININE:3 in the last 72 hours A/P: 52 y.o. year old female POD#0 s/p C5-7 ACDF. Vitals stable, uop adequate. - continue all post-operative care Spine Attending I have seen and examined the patient in the PACU on 09/08 and agree with the resident's finding and plan. * Lashawn Coker RN - 09/08/2013 4:33 PM EST 1630-Break relief. Family into visit. * Dion Light RN - 09/08/2013 3:42 PM EST 1540 VSS, c-collar in place on arrival to PACU. Patient awake but drowsy, complains of pain, deniesnausea - tolerating ice chips well. Patient states her right arm is feeling much improved from preop numbness/tingling, and pain. Moving all extremities to command, dressing CDI. Drain in place. 1615 Dr Gonzalez at bedside to see patient. Full assessment performed. No new orders received. 1620 Report to Ayad Coker RN for break coverage. 1715 Report to Julita CASON. Patient ready for transfer to [facility] for [place]ray. documented in this encounter H&P Notes * Rios Gonzalez MD - 09/08/2013 10:27 AM EST Patient seen and examined. Agree with assessment by PCP. Pt cont to have neck and RUE pain. On exam, has 4/5 R WE, WF and B HI with diminished sensation on the radial aspects of both hands, R>L. Pt notes she continues to smoke a small amount but has essentially quit. I informed her she needs to avoid nicotine for at least the next year until the fusion is solid. Will proceed with surgery as planned (C5-7 ACDF). Patient is a full-code. * Rios Gonzalez MD - 09/08/2013 10:27 AM EST Patient Name: Poppy Mclaughlin Patient Age: 52 y.o. Birthdate: 1960 Admit date: 09/08/2013 Attending Physician: Rios Gonzalez MD Please see H+P by PCP. documented in this encounter Procedure Notes * Provider, Scanning - 2013 9:11 AM ESTAssociated Order(s): SCAN DOC: IMPLANTABLE DEVICES documented in this encounter Miscellaneous Notes * Miscellaneous - Provider, Scanning - 2013 9:11 AM EST * Initial Assessments - Brendon Kincaid, OT - 09/09/2013 12:37 PM EST Occupational Therapy Evaluation Patient profile: Poppy Mclaughlin is a 52 y.o. female patient of Rios Luciano MD, admitted on 09/08/2013 s/p cervical ACDF. Past Medical History Diagnosis Date ??? Allergy liquid abuterol, egg sensitivity ??? Hypertensive disease they have said my bp is running high ??? Breathing problem im seeing dr zapata ??? Chronic pain ??? Digestive problems 12-11 ?? gerd, nutcracker syndrome abdominal gistention dr holder ??? ENT disease 3-[address] alex ??? Headache ? Skin disorder ?? acne Past Surgical History Procedure Date ??? Gastroenterology procedure [address] jimenez ??? Lap, cholecystectomy/graph 11/04/2012 LAPAROSCOPIC CHOLECYSTECTOMY WITH CHOLANGIOGRAM performed by Abel Carlton MD at [facility] ??? Arthrodesis, ant interbody,decompression; cervical below c2 09/08/2013 ARTHRODESIS, ANT INTERBODY,DECOMPRESSION; CERVICAL BELOW C2 performed by Rios Gonzalez MD at [facility] ??? Arthrd ant interdy cervcl belw c2 ea addl ntrspc 09/08/2013 @ARTHRODESIS ANT INTERBDY CERVCL BELOW C2 EA ADDL INTRSPACE performed by Rios Gonzalez MD at [facility] ??? Anterior instrumentation 2-3 vertebral segments 09/08/2013 @ANT. SPINAL INSTRUMENTATION, 2-3 VERTEBRA, SEGMENTED performed by Rios Gonzalez MD at [facility] ??? Allograft for spine surgery only structural 09/08/2013 ALLOGRAFT FOR SPINE SURGERY ONLY; STRUCTUAL performed by Rios Gonzalez MD at [facility] Social History: Patient lives with her Home Setup: n/a DME: n/a Baseline ADL/Mobility: Independent with ADL???s and IADL???s Precautions/Special Considerations: Cervical collar Subjective: this collar is so uncomfortable. Objective: Seen today for OT evaluation. Cognitive Status/Behavior: alert, oriented to person, place, and time Vision & Perception: Not assessed, WFL? s Range of motion, strength, coordination: Hand dominance: n/a Bilateral UEs are within functional limitations Sensation: numbness (pre-op) is resolving per pt report Activities of Daily Living: Self-feeding: N/A-Independent with set up Hygiene grooming: Moderate assist due to c-collar Upper and lower body dressing and bathing: ?? Min assist due to pain and stiffness in her neck ?? available and will be assisting as necessary, i did provide a plasma center nurse per her request. ?? Reviewed cervical collar management with showers. Toileting: Stand by assist Functional Mobility: Not assessed, see PT note. She is moving with supervision Balance: good sitting and standing. IADL???s: Assistance available to patient. Endurance: Information taken from last recorded vitals in flowsheet. Last value Range last 8 hrs Heart Rate Heart Rate: 88 Heart Rate: [88-92] Blood Pressure BP: 130/70 mmHg BP: (122-130)/(70-75) SpO2 SpO2: 93 % SpO2: [93 %-96 %] On room air Pain: C/o neck pain from the collar. Re-fitted her collar and pt reported it was much better. Skin: irineo drain Informed Consent: The patient agrees to and understands the OT treatment plan and goals. Education: patient and significant other have been educated on ADL and Safety and verbalizes understanding. Patient status, treatment, and mobility recommendations discussed with nursing. Assessment: Pt has been seen by OT for evaluation, and she demonstrates the ability to perform basic ADL???s with minimal assist. Anticipate that pt will return home with assistance from her , he was educated on how to safely assist. Do not anticipate further OT needs. Plan: d/c OT, 's assist. Eval Date: 09/09/2013 Total time spent with patient: 10 minutes brief eval, 10 min self care training Total timed interventions: 10 minutes Pager: [phone] BRENDON KINCAID OT 09/09/2013 Occupational Therapy Rehabilitation Department * Initial Assessments - Re Lay, PT - 09/09/2013 11:50 AM EST Physical Therapy Evaluation Post-Operative Spine Patient Profile: Pt. is a 52 y.o. y.o. female admitted on 09/08/2013 by Rios Luciano MD for C5-7 ACDF on 09/08/13 secondary to cervical radiculopathy. Pt found to have bilateral foraminal stenosis at C5-6, worse on the right than the left, due to disk osteophyte complex and uncovertebral hyper trophy. At C6-7, there was a soft disk herniation on the right with an overlying rent in the PLL that was compressing the exiting C7 root. PMH: Past Medical History Diagnosis Date ??? Allergy liquid abuterol, egg sensitivity ??? Hypertensive disease they have said my bp is running high ??? Breathing problem im seeing dr zapata ??? Chronic pain ??? Digestive problems 12-11 ?? gerd, nutcracker syndrome abdominal gistention dr holder ??? ENT disease 3-[address] alex ??? Headache ? Skin disorder ?? acne PSH: Past Surgical History Procedure Date ??? Gastroenterology procedure [address] jimenez ??? Lap, cholecystectomy/graph 11/04/2012 LAPAROSCOPIC CHOLECYSTECTOMY WITH CHOLANGIOGRAM performed by Abel Carlton MD at [facility] ??? Arthrodesis, ant interbody,decompression; cervical below c2 09/08/2013 ARTHRODESIS, ANT INTERBODY,DECOMPRESSION; CERVICAL BELOW C2 performed by Rios Gonzalez MD at [facility] ??? Arthrd ant interdy cervcl belw c2 ea addl ntrspc 09/08/2013 @ARTHRODESIS ANT INTERBDY CERVCL BELOW C2 EA ADDL INTRSPACE performed by Rios Gonzalez MD at [facility] ??? Anterior instrumentation 2-3 vertebral segments 09/08/2013 @ANT. SPINAL INSTRUMENTATION, 2-3 VERTEBRA, SEGMENTED performed by Rios Gonzalez MD at [facility] [place] ??? Allograft for spine surgery only structural 09/08/2013 ALLOGRAFT FOR SPINE SURGERY ONLY; STRUCTUAL performed by Rios Gonzalez MD at [facility] Social History: Patient is disabled and lives with her significant other in a mobile home in [place], [place]. 10 steps to enter with kait railing. Pt is independent with all mobility & ADLs at baseline, no device. Precautions/Special Considerations: c-collar at all times; no bending, twisting, or lifting >5-10 lbs Post-operative course: unremarkable Subjective: Patient states ???I sleep with a lot of pillows behind me at home. Objective: Vitals: SpO2: 94-95%, HR 91-102 Pain: 9/10 in neck, more on L side; pt medicated by RN at start of session and PT asked whether pt wanted PT to be deferred until after pain medication takes effect, but pt stated that she would rather work with PT now Sensation: Denied any numbness/tingling in extremities, reports that this is improved from pre-op Strength: WFL all extremities, reports significant improvement of pre-op UE weakness Functional Mobility: Supine->sit independent toward L side of bed via logroll technique, HOB flat Sit->supine independent from L side of bed via logroll technique, HOB flat Sit->Stand independent without use of walker Stand->sit independent Gait: Ambulated ~200 ft using FWW with steady gait, no obvious deviations. Pt ascended/descended 3 steps steadily using kait railing with reciprocal pattern, no deviations Informed Consent: The patient agrees to and understands the PT treatment plan and goals. Education: patient educated on Bed mobility, Transfers, Assistive device/technique, Stairs, Positioning, Safety , Gait , Role of therapy and Discharge planning and verbalizes and demonstrates understanding. Patient status, treatment, and mobility recommendations discussed with nursing staff. Assessment: Pt is POD#1 s/p C5-7 ACDF. Pt tolerated today's session well and is moving slowly but independently. Needed some cues to avoid her preference for excessive pillows behind her head in bed with goal ofkeeping her neck in neutral position. Anticipate safe d/c home with support of her significant other once medically ready. He is reportedly going to be with pt 24-7 x1 week upon d/c. No further PT needs at this time. Plan: D/c acute PT Equipment needs: Rolling walker. Activity plan w/nursing assist (discussed with nursing staff): Able to ambulate with supervision ofher significant other Discharge Recommendations: Home with support of significant other Physical Therapist recommends: Occupational Therapy consult Total treatment time: 25 minutes Total timed treatment: 0 minutes RE LAY, PT Pager: [phone] * Plan of Care - Keren Hammond RN - 09/09/2013 12:27 AM EST Problem: Skin Integrity Impairment, Risk/Actual (Adult, Obstetric) Goal: Skin Integrity Impairment, Risk/Actual: Skin Integrity/Wound Healing Outcome: Absent and monitoring Patients skin appears to be intact at this time except for operative dressings. Patient repositionsindependently or calls RN if help is need with repositioning. RN will continue to monitor patients skin. Problem: Pain Chronic (Adult, Pediatric, Obstetric) Goal: Chronic Pain: Acceptable Pain Control/Comfort Level - Pain Chronic (Adult, Pediatric, Obstetric) Outcome: Therapy, goal partially met Patient tolerating PRN dilaudid PO & IV for pain. Patient states pain is 4- 10/10, but was able to have periods of rest during the evening hours. Patient aware to alert RN if pain is not being controlled with current pain medication. RN will continue to monitor patient. Problem: Trauma/Injury Risk (Adult, Obstetric) Goal: Trauma/Injury Risk: Absence of Trauma/Injury/Falls Outcome: Absent and monitoring Patient remained in bed following her evening arrival to the floor. Patient remains free of falls during this hospitalization. Patient has a call thomas within reach and alerts RN appropriately when they want to mobilize. See doc flowsheet for additional documentation. * Discharge Summary - Mahnaz Fischer PA - 09/08/2013 3:44 PM EST Department of Orthopedic Medicine - Discharge Summary Patient Name: Poppy Mclaughlin Patient Age: 52 y.o. Birthdate: 1960 Admit date: 09/08/2013 Discharge date: 09/09/2013 Attending Physician: Rios Gonzalez MD Discharge Diagnoses (Hospital Problems) and Secondary Diagnoses (Chronic Problems): Active Hospital Problems Diagnosis ??? Herniated nucleus pulposus, C6-7 Right, S/P C5-7 ACDF 09/08/13 ??? Urinary retention with incomplete bladder emptying- improved Resolved Hospital Problems Diagnosis Date Resolved No resolved problems to display. Active Non-Hospital Problems Diagnosis ??? Cigarette smoker ??? Allergic rhinitis ??? Depression ??? Anxiety ??? Esophageal reflux ??? Chronic diarrhea ??? 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 Hypertension ??? Biliary colic ??? Dyspnea ??? Multiple nodules of lung ??? Abdominal distention Operations/Major Procedures: 09/08/2013 Surgeon(s) and Role: * Rios Gonzalez MD - Primary * Vito Kumari MD - Resident-Surgeon Chief Procedure:C5-7 ACDF Hospital Course: Poppy Mclaughlin was admitted for the above operation. Operative course was uneventful. On POD#1 she was allowed out of bed ad thomas, with no bending or twisting. The patient was instructed to wear a [place] J at all times. These parameters were reinforced by physical therapy. The patient???s LIVESTOCK SPECULATOR was discontinued on POD#1 and was transitioned to oral pain medications and was comfortable. The hernadez catheter was removed on POD#1 and she was voiding with difficulty- had some urinary retention. This was closely monitored and gradually improved over the day, she was generally voiding more out than retaining on bladder scan. She was sent home with a voiding diary and hats for the toilet to monitor urine output at home. On POD#1 the dressing was dry and intact and the wound was benign- drain was pulled. She did not have a bowel movement prior to discharge but was passing flatus andeating and drinking well. Prior to discharge the patient was afebrile, with stable vital signs and on POD#1, was deemed stable for discharge to home with her . Important Studies and Lab Data: Labs: Lab Results Component Value Date HGB 12.8 08/18/2013 HCT 38.6 08/18/2013 Transfusions: No Studies: 09/08/2013- AP and lateral Cervical spine The cervical spine below the C6 level is not well seen due to overlying structures. A cervical collar is in place. There are postsurgical changes of C5- C7 ACDF with intact fixation and intervertebralspacers. Prevertebral drain is in place. There is a small amount of prevertebral soft tissue gas compatible with recent surgery. No fracture or subluxation. Existing disc degenerative changes at C4-C5, unchanged. Impression - Status post C5-C7 ACDF with intact fixation. No fracture or subluxation identified. Discharge Conditions/Prognosis: Stable, awake, and alert. Mobilizing with walker/crutches, pain controlled on oral medications. Vital Signs: Last value Range last 24 hrs Temperature Temp: 37 ??C (98.6 ??F) Temp: [36.8 ??C (98.2 ??F)-37.1 ??C (98.8 ??F)] Heart Rate Heart Rate: 85 Heart Rate: [85-98] Blood Pressure BP: 129/70 mmHg BP: (120-140)/(69-89) Respiratory Rate Resp: 19 Resp: [14-20] SpO2 SpO2: 95 % SpO2: [93 %-96 %] Art BP BP (Arterial Line): -- Discharge to: Home Discharge Medications: Your Medications As of 09/09/2013 4:23 PM New Medications Dose Details bisacodyl 10 mg suppository Commonly known as: DULCOLAX Place 1 suppository rectally daily. Use once a day until you have your first bowel movement, then use as needed for constipation or if no BM in 48 hours. 10 mg Quantity: 3 suppository Refills: 0 hydromorphone 2 mg tablet Commonly known as: DILAUDID Take 1-3 tablets by mouth every 4 hours as needed for Pain (as pain gets better, VERY important to decrease dose of Dilaudid and space doses further apart. ). 2-6 mg Quantity: 80 tablet Refills: 0 polyethylene glycol 17 gram/dose powder Commonly known as: MIRALAX Take 17 g by mouth daily. 17 g Quantity: 255 g Refills: 0 senna-docusate 8.6-50 mg per tablet Commonly known as: PERICOLACE Take 1-4 tablets by mouth 2 times daily. 1-4 tablet Quantity: 60 tablet Refills: 2 Continued medications with new dosing Dose Details acetaminophen 500 mg tablet Commonly known as: TYLENOL Take 2 tablets by mouth every 8 hours for 7 days. After 7 days, may take Tylenol every 8 hours as needed for pain, DO NOT take more than 3000 mg in a 24 hour period. What changed: - how often to take the med - doctor's instructions 1000 mg Quantity: 42 tablet Refills: 0 diphenoxylate-atropine 2.5-0.025 mg per tablet Commonly known as: LOMOTIL Take 1 tablet by mouth 4 times daily as needed for Diarrhea. DO NOT restart this unless you are having diarrhea. What changed: doctor's instructions 1 tablet Quantity: 120 tablet Refills: 5 Continued medications, unchanged Dose Details amlodipine 5 mg tablet Commonly known as: NORVASC Take 5 mg by mouth daily. 5 mg Refills: 0 cholecalciferol (Vitamin D3) 400 unit tablet Take 400 Units by mouth daily. 400 Units Refills: 0 citalopram 40 mg tablet Commonly known as: celeXA Take 1 tablet by mouth daily. 40 mg Quantity: 90 tablet Refills: 3 dexlansoprazole 60 mg Cpdm Commonly known as: DEXILANT Take 60 mg by mouth 2 times daily. 60 mg Quantity: 60 tablet Refills: prn dicyclomine 10 mg capsule Commonly known as: BENTYL Take 1 capsule by mouth 4 times daily. 10 mg Quantity: 120 capsule Refills: 5 fluticasone 50 mcg/actuation nasal spray Commonly known as: FLONASE 1 spray by Each Nare route 2 times daily. 1 spray Quantity: 16 g Refills: 12 gabapentin 300 mg capsule Commonly known as: NEURONTIN Take 300 mg by mouth daily. 300 mg Refills: 0 guaifenesin 20 mg/mL syrup Commonly known as: ROBITUSSIN Take 200 mg by mouth 3 times daily as needed. 200 mg Refills: 0 ipratropium 0.06 % nasal spray Commonly known as: ATROVENT 2 sprays by Nasal route 4 times daily. 2 spray Quantity: 15 mL Refills: 12 loratadine 10 mg tablet Commonly known as: CLARITIN Take 10 mg by mouth daily. 10 mg Refills: 0 MULTIVITAMIN ORAL Take 2 tablets by mouth daily. 2 tablet Refills: 0 promethazine 25 mg tablet Commonly known as: PHENERGAN Take 25 mg by mouth every 6 hours as needed. 25 mg Refills: 0 pseudoephedrine 30 mg tablet Commonly known as: SUDAFED Take 30 mg by mouth every 4 hours as needed. 30 mg Refills: 0 VITAMIN B COMPLEX ORAL Take 1 tablet by mouth. 1 tablet Refills: 0 VITAMIN C ORAL Take 2 tablets by mouth daily. 2 tablet Refills: 0 WELLBUTRIN ORAL Take 150 mg by mouth 2 times daily. 150 mg Refills: 0 STOPPED Medications ibuprofen 600 mg tablet Commonly known as: ADVIL;MOTRIN ketorolac 10 mg tablet Commonly known as: TORADOL Updated Allergies/ADRs: Allergies Allergen Reactions ??? Albuterol Liquid--Per patient, she gets hyperactivity. ??? Egg Per patient, she vomits. Instructions Given to Patient at Discharge: General Instructions Activity: 1. You may perform your [...] with adequate amounts of protein and fiber. For the next week or so, you may need to eat softer foods such as applesauce, scrambled eggs, or mashed potatoes. Take small bitesand chew carefully. Cold foods like popsicles may feel good on your throat. 2. The pain medications you are taking can cause constipation, so increase your intake of fluids and fiber while you are taking them. 3. You should also take an wmas-ipa-zmdkhzs stool softener, such as Colace or Senna, to facilitate a bowel movement. Voiding (Urinating): For the next few days, monitor your urination at home. You should be going to the bathroom at least every 4 hours to urinate. Use the hats (white basins) in your toilet to helpmeasure the amount of urine you are making. You should make about 200-300 cc of urine every 4 hours. If you cannot urinate at all after 4-6 hours, you should go to your primary doctor's office, urgentcare, or emergency room. Drivin. You are not allowed to drive if you are still requiring narcotic pain medication to manage your discomfort. 2. Since you are being sent home in a Cervical Collar, do not drive until you have been cleared by your physician at your follow-up appointment. Call the Spine Center or your Primary Care Physician if you have questions or concerns. Medication: 1. You are being discharged on a narcotic pain medication- Dilaudid. Common side effects of this medication include drowsiness, nausea, and constipation. You should only take the smallest amount of pain medication that adequately controls your pain. As your pain gets better, decrease the amount of Dilaudid you are taking and space doses further apart. 2. You may take Tylenol (acetaminophen) around the clock as directed on the package insert for the next 10 days to help reduce the amount of narcotic medication you need. Do not exceed 3000 mg of acetaminophen in 24 hrs. You have had a spinal fusion surgery. DO NOT take any NSAID medication such as Aleve, Ibuprofen, Motrin, Naprosyn, or Advil. Also, DO NOT restart your home medication of Toradol! This can slow down the healing of your fusion. 3. If you need a renewal of your pain medication, please contact the [facility] Prescription Lineat [phone]. PRESCRIPTION RENEWAL REQUESTS CAN TAKE UP TO 3 DAYS TO FILL. YOU WILL BE REQUIRED TO CERTIFIED WELDING INSPECTOR YOUR NARCOTIC REFILL PRESCRIPTION IN PERSON AT [facility] OR IT CAN BE MAILED TO YOUR PHARMACY. [place] Collar Instructions: 1. You are being sent home with a hard cervical collar. It must be worn at all times, including showers and while sleeping. 2. If you are required to wear the collar at all times, you may shower as usual with the collar in place. You will need to remove the collar to dry your skin and change the pads. While sitting upright, hold you head and neck steady while the front or back of your collar is removed. You should hold your head in place until the collar is back in position. After showers you should take care to remove any residual soap from your neck and to replace the wet pads with a clean, dry pair. You will be sent home from the hospital with extra pads and instructions on how to change them. 3. Do not put powder or lotion underneath the pads. 4. You should inspect your skin daily for redness or irritation caused by the collar. If you noticeirritation or you see areas where the hard plastic from the collar is pressing against the skin, please call the [facility] Nursing Line at the number below. 5. Wash the extra pads with mild soap, rinse well, and allow to air dry. Wound Care/Shower/Bath: 1. For the first 72 hours after surgery (until September 12), shower with a clear plastic Tegaderm dressing covering your wound to keep it dry. 2. After 72 hours (after September 12) you may remove the plastic dressing. At this point you may allow water to run over the wound but do not scrub the surrounding skin. Gently pat dry with a clean,dry towel. 3. At this time you may replace the plastic dressing with clean, dry gauze held in place with tape.Any bandage over the wound should be dry at all times and should be replaced if wet. 4. 4 days after surgery (after September 12) the wound can be left uncovered if there is no continued drainage. (You should continue to cover the wound for as long as there is continued drainage, please see the section below on when to call the Spine Center.) 5. Do not soak the incision underwater (ie lakes, pools, hot tubs, bath tubs, etc) for at least twoweeks until the incision has completely healed. 6. After the gauze dressing is removed the paper strips (steristrips) should be kept in place. You have absorbable sutures under your skin that do not need to be removed. They are covered by the steri-strips. The steri-strips may begin to fall off, and you may trim them as they peel back. After 14 days (September 22) you can remove the remaining steri-strips if they have not fallen off already. PLEASE CALL US AT [phone] TO SPEAK WITH A SPINE CENTER NURSE [...] Important Phone Numbers: Clinical issues, nurse questions: [phone] Medication renewals: [phone] Appointments for Marielena Gonzlaez: [phone] Follow Up Appointments: You will have follow-up appointments at [facility] as indicated in the ???Future Appointments and Orders?? section of your discharge summary. If X-rays have been ordered for you prior to this appointment you will need to report to the Radiology department, desk 3T, 1 hour prior to your spine center appointment. X-rays in Radiology 3T prior to follow up appointment: October 05 at 10:20 AM. Follow up appointment with Dr. Gonzalez in Orthopedics 3D: October 05 at 11:20 AM. Future Appointments Date Time Provider Department Center 10/05/2013 11:20 AM Rios Gonzalez MD [facility] 11/24/2013 1:00 PM Justin Starkey MD [facility] If you have questions or concerns: Saturday through Saturday, 8 AM- 5 PM, please call Dr. Gonzalez's office at . If it is after 5 PM or on the weekend, please call and ask for orthopedic resident on-call to be paged. Future Appointments and Orders Future Appointments: Provider: Department: Dept Phone: Center: 10/05/2013 11:20 AM Rios Gonzalez MD Spine Center [phone] [facility] 11/24/2013 1:00 PM Justin Starkey MD Gastroenterology [phone] [facility] Primary Care Provider: MARY ALICE DOMINGO APRN [phone] Inpatient Provider Contact Information: If you have questions or concerns: Saturday through Saturday, 8 AM- 5 PM, please call Dr. Gonzalez's office at . If it is after 5 PM or on the weekend, please call and ask for orthopedic resident on-call to be paged. Electronically Signed by: KIARA GAMEZ 09/09/2013 * Op Note - Rios Gonzalez MD - 09/08/2013 2:55 PM EST [facility] Operative Note Patient Name: Poppy Mclaughlin : [id number] MR#: [id number] Case Date: 09/08/2013 Surgeon: Surgeon(s) and Role: * Rios Gonzalez MD - Primary * Vito Kumari MD - Resident PREOPERATIVE DIAGNOSIS: Cervical radiculopathy. POSTOPERATIVE DIAGNOSIS: Cervical radiculopathy. PROCEDURE: 1. C5-6 and C6-7 anterior cervical diskectomy and fusion. 2. Application of anterior cervical plate C5 through 7. 3. Structural fibular allografting C5-6 and C6-7. ANESTHESIA: General. OPERATIVE FINDINGS: There was bilateral foraminal narrowing at C5-C6, worse on the right than the left due to a combination of disk osteophyte complex and uncovertebral hypertrophy. At C6-C7, there was a rent in PLL on the right side and soft fragment of disk was compressing the exiting right C7 nerve. At the conclusion of the case, bilateral C6 and C7 nerve roots as well as the spinal cord was fully decompressed. INDICATION FOR PROCEDURE: Ms. Mclaughlin is a 52-year-old female who has had persistent neck pain and right upper extremity pain in the setting of disk herniations at C5-6 and C6-7. She failed to improve with extensive nonoperative treatment and elected to undergo surgery after a full discussion of the potential risk and benefits thereof. DESCRIPTION OF PROCEDURE: The patient was taken to the operating room and she was positioned supine on the operating room table. General anesthesia was administered. She received preoperative antibiotics. A time-out was performed to identify the patient and the planned procedure. Her neck was positioned slightly extended with her arms tucked by her sides. The neck was prepped with Hibiclens and DuraPrep and draped in the usual sterile fashion. The planned incision was injected with 5 mL of 0.25% Marcaine. The incision was made centered over the C6 level. This was made in a transverse fashion on the left from the midline to the anterior border of the sternocleidomastoid. The electrocautery was used to dissect down the level of the platysma, which was split in line with the incision. Cranial and caudal platysmal flaps were raised. The deep cervical fascia was divided along the medial border of the sternocleidomastoid, and the plane between the sternocleidomastoid laterally and the strap muscles medially was developed. Deeper dissection between the carotid sheath laterally and the trachea and the esophagus medially brought us to the prevertebral fascia, which was split in the midline. The prevertebral fascia was bluntly elevated off C5, C6, and C7. A distraction pin was placedin C5, and an intraoperative x-ray obtained demonstrating our level. We placed another distraction pin at C7, and distraction was applied across the interspaces. The longus colli muscles were elevated bilaterally, and the Boss self-retaining retractor was placed. Following retractor placement, the endotracheal balloon was deflated and re-inflated to decrease the pressure on the recurrent laryngeal nerve. We performed complete diskectomies at C5-C6 and C6-C7, starting at C5-C6. An annulotomy was created with a #15-blade, and the disk was removed in its entirety using a combination of the pituitary and curettes. The posterior osteophytes were taken down with a high speed aracelis. The PLL was divided in line with its fibers using a curette, and then taken down with a Kerrison. The posterior osteophytes were removed. Foraminotomies were performed bilaterally. Following this, we used a nerve hook to confirm there was no residual compression of the exiting nerve roots or the spinal cord. Hemostasis was achieved in the disk space using FloSeal. A similar diskectomy was performed at C6-C7. At this level, we noted a soft disk herniation of the right side as described above. We then found the 7-mm lordotic trial fit the disk spaces appropriately. The wound was then copiously irrigated with normal saline containing bacitracin. The 7-mm lordotic grafts were tamped into place at C5-C6 and C6-C7. Local bone graft as well as bone dust from the burring was placed anterior and lateral to the grafts. A plate was placed anteriorly and fixed to the vertebral bodies with screws. The screw holes were predrilled with a hand drill, and 14-mm screws were placed. These were locked to the plate with the torque-limited screwdriver. A lateral x-ray demonstrated appropriate position of the grafts and the hardware. A drain was placed along the anterior aspect of the spine. The platysma and subcutaneous tissue were closed using 3-0 Vicryl. The skin was closed using a 4-0 Monocryl in a running, subcuticular fashion. The wound was dressed with Maxitrol, Steri-Strips, sterile gauze, and Tegaderm. The patient was placed in the cervical collar. She was transferred back to the hospital bed. She was taken to the recovery room in stable condition. There were no obvious complications. * OR Attestation - Rios Gonzalez MD - 09/08/2013 2:52 PM EST Attestation: Case Date: 09/08/2013 I was present and I participated during the entire procedure (does not need to include opening and closing). RIOS GONZALEZ MD 09/08/2013 * Brief Op Note - Rios Gonzalez MD - 09/08/2013 2:49 PM EST Brief Operative Note Patient Name: Poppy Mclaughlin : [id number] MR#: [id number] Case Date: 09/08/2013 Surgeon: Surgeon(s) and Role: * Rios Gonzalez MD - Primary * Vito Kumari MD - Resident Preoperative diagnosis: Cervical radiculopathy Postoperative diagnosis: Cervical radiculopathy Procedure(s): C5-7 ACDF ([id number], [id number]) Anesthesia: General Findings: There was bilateral foraminal stenosis at C5-6, worse on the right than the left, due to disk osteophyte complex and uncovertebral hypertrophy. At C6-7, there was a soft disk herniation on the right with an overlying rent in the PLL that was compressing the exiting C7 root. At the conclusion of the case, bilateral C6 and C7 roots and the spinal cord were fully decompressed. No CSF. Complications: None Fluids: 1400 Estimated Blood Loss: 50 Drains: Anterior cervical x 1 Disposition: awakened from anesthesia, extubated and taken to the recovery room in a stable condition, having suffered no apparent untoward event. Condition: doing well without problems (Please see the Surgical Encounter Summary for any Implant and Specimen details pertinent to this patient.) * Miscellaneous - Provider, Scanning - 09/08/2013 12:24 PM EST documented in this encounter Plan of Treatment Not on file documented as of this encounter Procedures Procedure Name Priority Date/Time Associated Diagnosis Comments IMPLANTABLE DEVICES SCAN 2013 9:11 AM EST BASIC METABOLIC PANEL STAT 09/09/2013 10:50 AM EST XR CERVICAL SPINE 2 OR 3 VIEWS Routine 09/08/2013 6:35 PM EST XR CERVICAL SPINE 1 VIEW Routine 09/08/2013 2:30 PM EST XR CERVICAL SPINE 1 VIEW Routine 09/08/2013 12:36 PM EST MODIFIER G[facility] 09/08/2013 10:55 AM EST Herniated nucleus pulposus, C6-7 MODIFIER C7 09/08/2013 10:55 AM EST Herniated nucleus pulposus, C6-7 MODIFIER C6 09/08/2013 10:55 AM EST Herniated nucleus pulposus, C6-7 MODIFIER C5 09/08/2013 10:55 AM EST Herniated nucleus pulposus, C6-7 ALLOGRAFT FOR SPINE SURGERY ONLY; STRUCTUAL (WRVU 1.81) 09/08/2013 10:55 AM EST Herniated nucleus pulposus, C6-7 ANT. SPINAL INSTRUMENTATION, 2-3 VERTEBRA, SEGMENTED (WRVU 11.94) 09/08/2013 10:55 AM EST Herniated nucleus pulposus, C6-7 ARTHRODESIS ANT INTERBDY CERVCL BELOW C2 EA ADDL INTRSPACE (WRVU 6.5) 09/08/2013 10:55 AM EST Herniated nucleus pulposus, C6-7 ARTHRODESIS, ANT INTERBODY,DECOMPRESS ION; CERVICAL BELOW C2 (WRVU 25) 09/08/2013 10:55 AM EST Herniated nucleus pulposus, C6-7 ARTHRODESIS ANT INTERBDY CERVCL BELOW C2 EA ADDL INTRSPACE Routine 09/08/2013 9:38 AM EST Herniated nucleus pulposus, C6-7 ANT. SPINAL INSTRUMENTATION, 2-3 VERTEBRA, SEGMENTED Routine 09/08/2013 9:38 AM EST Herniated nucleus pulposus, C6-7 ALLOGRAFT FOR SPINE SURGERY ONLY;STRUCTUAL Routine 09/08/2013 9:38 AM EST Herniated nucleus pulposus, C6-7 POCT URINE Routine 09/08/2013 documented in this encounter Results * SCAN DOC: IMPLANTABLE DEVICES (2013 9:11 AM EST) Narrative 2013 9:11 AM EST Procedure Note Provider, Scanning - 2013 9:11 AM EST Scanning Provider MEDIA MGR SCAN EXT O RDR/RSLT * Basic Metabolic Panel (non-fasting) (09/09/2013 10:50 AM EST) Glucose 108 60 - 199 mg/dL CERNER MILLENNIUM Comment:Diabetes: >=200 mg/d L plus symptoms Blood Urea Nitrogen 10 8 - 18 mg/dL CERNER MILLENNIUM Creatinine 0.86 0.70 - 1.20 mg/dL CERNER MILLENNIUM Comment: Please note that the pediatric reference intervals supplied above were not validated at [facility] [place] [facility] [place]. Results from pediatric patients should be interpreted in conjunction to the patient's age, height and muscle mass. Sodium 138 135 - 145 mmol/L CERNER MILLENNIUM Potassium 4.3 3.5 - 5.0 mmol/L CERNER MILLENNIUM Comment: Please note: ??Patients with WBC >100,000 may have falsely elevated Potassium levels. ??For accurate Potassium quantification in these patients send serum separator tube (gold top) for subsequent determinations. ??Contact the Clinical Chemistry Laboratory if there are any questions. Chloride 101 98 - 107 mmol/L CERNER MILLENNIUM Carbon Dioxide 26 22 - 31 mmol/L CERNER MILLENNIUM Anion Gap 11 5 - 15 mmol/L CERNER MILLENNIUM Calcium 8.9 8.5 - 10.5 mg/dL CERNER MILLENNIUM Est Glomerular Filtration Rate >60 >=60 CERNER MILLENNIUM Comment: This estimated GFR [...] the following links into your internet browser. http://www.nkdep.nih.gov/lab-evaluation.shtml http://www.kidney.org/professionals/ Blood specimen (specimen) 09/09/2013 10:50 AM EST 09/09/2013 11:04 AM EST Narrative Resulting Agency Comment Spec In Lab Rios Gonzalez MD CHEMISTRY ORDERABLES VIKTOR TODD * XR Cervical Spine 2 or 3 views (09/08/2013 6:35 PM EST) Anatomical Region Laterality Modality C-spine N/A Radiographic Martha ging 09/08/2013 6:35 PM EST Narrative 09/09/2013 9:18 AM EST Examination Cervical Spine 2 or 3 Views Clinical History s/p C5-7 ACDF Comparison 03/31/2014. Technique AP, lateral, swimmer's view cervical spine. Findings The cervical spine below the C6 level is not well seen due to overlying structures. A cervical collar is in place. There are postsurgical changes of C5-C7 ACDF with intact fixation and intervertebral spacers. ??Prevertebral drain is in place. ??There is a small amount of prevertebral soft tissue gas compatible with recent surgery. ??No fracture or subluxation. ??Existing disc degenerative changes at C4-C5, unchanged. Impression Status post C5-C7 ACDF with intact fixation. No fracture or subluxation identified. Procedure Note Andriy Jay MD - 09/09/2013 Examination Cervical Spine 2 or 3 Views Clinical History s/p C5-7 ACDF Comparison 03/31/2014. Technique AP, lateral, swimmer's view cervical spine. Findings The cervical spine below the C6 level is not well seen due to overlying structures. A cervical collar is in place. There are postsurgical changesof C5-C7 ACDF with intact fixation and intervertebral spacers. Prevertebraldrain is in place. There is a small amount of prevertebral soft tissue gas compatible with recent surgery. No fracture or subluxation. Existingdisc degenerative changes at C4-C5, unchanged. Impression Status post C5-C7 ACDF with intact fixation. No fracture or subluxation identified. Rios Gonzalez MD IMG DX ORDERABLES * XR cervical spine 1 view (09/08/2013 2:30 PM EST) Anatomical Region Laterality Modality C-spine N/A Radiographic Martha ging 09/08/2013 2:30 PM EST Narrative 09/08/2013 3:29 PM EST Examination CERVICAL SPINE LATERAL ONLY/XPORT Clinical History Cervical radiculopathy- intra-op Comparison September 08, 2013. Technique Intraoperative lateral cervical spine. Findings In the interval since the prior examination an ACDF has been performed from C5-C7. ??The hardware and bone grafts appear well positioned. Procedure Note Marcell Sanders MD - 09/08/2013 Examination CERVICAL SPINE LATERAL ONLY/XPORT Clinical History Cervical radiculopathy- intra-op Comparison September 08, 2013. Technique Intraoperative lateral cervical spine. Findings In the interval since the prior examination an ACDF has been performedfrom C5-C7. The hardware and bone grafts appear well positioned. Rios Gonzalez MD IMG DX ORDERABLES * XR cervical spine 1 view (09/08/2013 12:36 PM EST) Anatomical Region Laterality Modality C-spine N/A Radiographic Martha ging 09/08/2013 12:3 6 PM EST Narrative 09/08/2013 1:55 PM EST Examination CERVICAL SPINE LATERAL ONLY/XPORT Clinical History intraoperative level confirmation Comparison None Technique Intraoperative lateral cervical spine. Findings A metallic device projects over the vertebral body of C5. Procedure Note Marcell Sanders MD - 09/08/2013 Examination CERVICAL SPINE LATERAL ONLY/XPORT Clinical History intraoperative level confirmation Comparison None Technique Intraoperative lateral cervical spine. Findings A metallic device projects over the vertebral body of C5. Rios Gonzalez MD IMG DX ORDERABLES * POCT urine (09/08/2013) POC Urine HCG Negative Negative - Negative POC Control Internal Controls Acceptable Samra Zhong MD POINT OF CARE TEST O RDERABLES documented in this encounter Visit Diagnoses Diagnosis Herniated nucleus pulposus, C6-7 Right, S/P C5-7 ACDF 09/08/13- Primary Displacement of cervical intervertebral disc without myelopathy Herniated nucleus pulposus, C6-7 Displacement of cervical intervertebral disc without myelopathy Rhinitis Chronic rhinitis Urinary retention with incomplete bladder emptying- improved Incomplete bladder emptying Herniated nucleus pulposus, C6-7 Displacement of cervical intervertebral disc without myelopathy documented in this encounter Administered Medications Inactive Administered Medications - up to 3 most recent administrations Medication Order MAR Action Action Date Dose Rate Site BUpivacaine-epiNEPHri ne 0.25 %-1:200,000 injection ONCE PRN, Starting on Sat09/08/13 at 1304, Until Sat09/08/13 at 1522, Intra-Operative (Intra-Procedure), Routine Given 09/08/2013 1:04 PM EST 11 mLs 19- Surgical Site gelatin adsorbable 100 (GELFOAM) sponge ONCE PRN, Starting on Sat09/08/13 at 1305, Until Sat09/08/13 at 1522, Intra-Operative (Intra-Procedure), Routine Given 09/08/2013 1:05 PM EST 1 each 19- Surgical Site thrombin (Bovine) (THROMBINAR) kit ONCE PRN, Starting on Sat09/08/13 at 1305, Until Sat09/08/13 at 1522, Intra-Operative (Intra-Procedure) Given 09/08/2013 1:05 PM EST 20,000 Units 19- Surgical Site documented in this encounter Active and Recently Administered Medications Times are shown in EST. Scheduled Medication Order 09/07/2013 09/08/2013 09/09/2013 acetaminophen (TYLENOL) tablet 1,000 mg 1,000 mg, Oral, EVERY 8 HOURS SCHEDULED, First dose on Sat09/08/13 at 2200, Until Discontinued, Maximum dose of acetaminophen is 4000 mg from all sources in 24 hours., Routine 2145 (Given - Provider: Keren Hammond RN) 0542 (Given - Provider: Keren Hammond RN)1352 (Given - Provider: Jyothi Khan RN) amlodipine (NORVASC) tablet 5 mg (CANCELED) 5 mg, Oral, DAILY, First dose on Sat09/08/13 at 2000, Until Discontinued, Routine 1999 (Not Given - Provider: Keren Hammond RN - Reason: Contraindicated - Comment: took in morning) 0855 (Given - Provider: Nissa Bah RN) buPROPion (WELLBUTRIN) tablet 150 mg (CANCELED) 150 mg, Oral, 2 TIMES DAILY, First dose on Sat09/08/13 at 2100, Until Discontinued 2005 (Given - Provider: Keren Hammond RN) 0847 (Given - Provider: Nissa Bah, KAMLA) ceFAZolin (ANCEF) 1g in dextrose 5% 50mL (COMPLETED) 1,000 mg (1 g), Intravenous, EVERY 8 HOURS, 3 doses, First dose on Sat09/08/13 at 1545, Last dose on Sat09/09/13 at 0745, Administer over 30 Minutes, For 3 doses postoperatively. Adjust to 8 hours from intraoperative dose., Indication for (Active or Suspected): Prophylaxis 1999 (New Bag - Provider: Keren Hammond RN - Comment: Dose in OR at 1135) 0420 (New Bag - Provider: Keren Hammond RN)1111 (New Bag - Provider: Nissa Bah, KAMLA) ceFAZolin (ANCEF) 2g in dextrose 5% 50 mL (COMPLETED) 2 g, Intravenous, ONCE, 1 dose, On Sat09/08/13 at 1000, To be administered upon arrival to the OR within one hour prior to incision., Day of Surgery (Day of Procedure), Indication for (Active or Suspected): Prophylaxis 1000 (Not Given - Provider: Dion Light RN - Reason: See comment - Comment: given at a later time)1135 (Given - Provider: Herson Arenas) citalopram (celeXA) tablet 40 mg (CANCELED) 40 mg, Oral, DAILY, First dose on Sat09/08/13 at 2000, Until Discontinued, Routine 2005 (Given - Provider: Keren Hammond RN) 0900 (Given - Provider: Nissa Bah, KAMLA) dicyclomine (BENTYL) capsule 10 mg (CANCELED) 10 mg, Oral, 4 TIMES DAILY, First dose on Sat09/08/13 at 2100, Until Discontinued, Routine 2002 (Given - Provider: Keren Hammond RN) 0848 (Given - Provider: Nissa Bah, KAMLA)1245 (Given - Provider: Nissa Bah, KAMLA)1700 (Due) esomeprazole (NEXIUM) capsule 40 mg (CANCELED) 40 mg, Oral, DAILY, First dose on Sat09/08/13 at 2000, Until Discontinued, Routine 2008 (Given - Provider: Keren Hammond RN) 0846 (Given - Provider: Nissa Bah, KAMLA) fluticasone (FLONASE) 50 mcg/actuation nasal spray 1 spray (CANCELED) 1 spray, Each Nare, 2 TIMES DAILY, First dose on Sat09/08/13 at 2100, Until Discontinued, Routine 2013 (Given - Provider: Keren Hammond RN) 09 (Given - Provider: Nissa Bah RN) gabapentin (NEURONTIN) capsule 300 mg (CANCELED) 300 mg, Oral, EVERY MORNING, First dose on Sat09/09/13 at 0700, Until Discontinued, Routine 603 (Given - Provider: Keren Hammond RN) gabapentin (NEURONTIN) capsule 600 mg (CANCELED) 600 mg, Oral, NIGHTLY, First dose on Sat09/08/13 at 2100, Until Discontinued, Routine 2006 (Given - Provider: Keren Hammond RN) multivitamin Naji-Tq-GT-Min (THERAPEUTIC-M) 27-0.4 mg tablet 1 tablet (CANCELED) 1 tablet, Oral, DAILY, First dose on Sat09/08/13 at 1999, Until Discontinued 1999 (Not Given - Provider: Keren Hammond RN - Reason: Patient/family refused) 0846 (Given - Provider: Nissa Bah, KAMLA) polyethylene glycol (MIRALAX) packet 17 g (CANCELED) 17 g, Oral, 2 TIMES DAILY, First dose on Sat09/08/13 at 2100, Until Discontinued, Administer if needed per patient's routine or if no bowel movement within 48 hours, Routine 2099 (Not Given - Provider: Keren Hammond RN - Reason: Order parameters not met) 0848 (Given - Provider: Nissa Bah, KAMLA) senna-docusate (PERICOLACE) 8.6-50 mg per tablet 1-4 tablet 1-4 tablet, Oral, 2 TIMES DAILY, First dose on Sat09/08/13 at 2100, Until Discontinued, Start with 1 tablet or liquid equivalent orally twice daily and titrate up to achieve: 1. One bowel movement at least every 48 hours, AND 2. Without straining, Routine 2008 (Given - Provider: Keren Hammond, RN) 0849 (Given - Provider: Nissa Bah, RN) sodium chloride 0.9 % flush 5 mL (CANCELED) 5 mL, Intravenous, 2 TIMES DAILY, First dose on Sat09/08/13 at 2100, Until Discontinued, Routine 2014 (Given - Provider: Keren Hammond, KAMLA) 0902 (Given - Provider: Nissa Bah, RN) Continuous Medication Order 09/07/2013 09/08/2013 09/09/2013 lactated ringers infusion 1,000 mL (CANCELED) 1,000 mL, at 100 mL/hr, Intravenous, CONTINUOUS, Starting on Sat09/08/13 at 1000, Until Sat09/08/13 at 1813, Day of Surgery (Day of Procedure) 1022 (New Bag - Provider: Tara Quan RN)1103 (New Bag - Provider: Herson Arenas)1150 (Anesthesia Volume Adjustment - Provider: Herson Arenas)1312 (Anesthesia Volume Adjustment - Provider: Herson Arenas)1420 (Anesthesia Volume Adjustment - Provider: Herson Arenas) lactated ringers infusion 1,000 mL (CANCELED) 1,000 mL, at 100 mL/hr, Intravenous, CONTINUOUS, Starting on Sat09/08/13 at 1545, Until Sat09/09/13 at 0937 1527 (New Bag - Provider: Dion Light RN) 0155 (New Bag - Provider: Keren Hammond RN)0929 (Stopped - Provider: Nissa Bah, KAMLA) PRN Medication Order 09/07/2013 09/08/2013 09/09/2013 BUpivacaine-epiNEPHrine 0.25 %-1:200,000 injection (CANCELED) ONCE PRN, Starting on Sat09/08/13 at 1304, Until Sat09/08/13 at 1522, Intra-Operative (Intra-Procedure), Routine 1304 (Given - Provider: Rios Gonzalez MD) gelatin adsorbable 100 (GELFOAM) sponge (CANCELED) ONCE PRN, Starting on Sat09/08/13 at 1305, Until Sat09/08/13 at 1522, Intra-Operative (Intra-Procedure), Routine 1305 (Given - Provider: Rios Gonzalez MD) hydromorphone (DILAUDID) injection 0.2-0.4 mg (CANCELED) 0.2-0.4 mg, Intravenous, EVERY 5 MIN PRN, Starting on Sat09/08/13 at 1439, Until Sat09/08/13 at 1813, Pain, For moderate pain give: 0.2 mg every 5 minute prn For severe pain give: 0.4 mg every 5 minutes prn Maximum dose: 4 mg per hour Hold for respiratory rate less than 10 per minute., PACU Recovery, Routine 1526 (Given - Provider: Dion Light RN)1535 (Given - Provider: Dion Light RN - Comment: A lot)1546 (Given - Provider: Dion Light RN)1612 (Given - Provider: Dion Light RN)1635 (Given - Provider: Lashawn Coker RN)1659 (Given - Provider: Dion Light RN) hydromorphone (DILAUDID) injection 0.4 mg (CANCELED) 0.4 mg, Intravenous, EVERY 2 HOURS PRN, Starting on Sat09/08/13 at 1522, Until Sat09/09/13 at 0938, Pain, Routine 2144 (Given - Provider: Keren Hammond RN) hydromorphone (DILAUDID) tablet 2 mg(Linked Group 1) 2 mg, Oral, EVERY 4 HOURS PRN, Starting on Sat09/08/13 at 1522, Until Sat09/09/13 at 1912, Pain, For Mild pain. Do not exceed 6 mg in 4 hours. If pain not relieved, call provider., Routine 171 (See Alternative - Provider: Dion Light RN)2008 (Given - Provider: Keren Hammond RN) 0055 (See Alternative - Provider: Keren Hammond RN)0542 (See Alternative - Provider: Keren Hammond RN)1119 (See Alternative - Provider: Nissa Bah RN)1548 (See Alternative - Provider: Felipa Noble RN) hydromorphone (DILAUDID) tablet 4 mg (CANCELED)(Linked Group 1) 4 mg, Oral, EVERY 4 HOURS PRN, Starting on Sat09/08/13 at 1522, Until Sat09/09/13 at 1912, Pain, For Moderate pain. Do not exceed 6 mg in 4 hours. If pain not relieved, call provider., Routine 1714 (Given - Provider: Dion Light RN)2008 (See Alternative - Provider: Keren Hammond RN) 005 (See Alternative - Provider: Keren Hammond RN)0542 (See Alternative - Provider: Keren Hammond RN)1119 (See Alternative - Provider: Nissa Bah, KAMLA)1548 (See Alternative - Provider: Felipa Noble, KAMLA) hydromorphone (DILAUDID) tablet 6 mg (CANCELED)(Linked Group 1) 6 mg, Oral, EVERY 4 HOURS PRN, Starting on Sat09/08/13 at 1522, Until Sat09/09/13 at 1912, Pain, For Severe pain. Do not exceed 6 mg in 4 hours. If pain not relieved, call provider., Routine 1714 (See Alternative - Provider: Dion Light RN)2008 (See Alternative - Provider: Keren Hammond RN) 005 (Given - Provider: Keren Hammond RN)0542 (Given - Provider: Keren Hammond RN)1119 (Given - Provider: Nissa Bah, KAMLA)1548 (Given - Provider: Felipa Noble, KAMLA) lorazepam (ATIVAN) injection 0.5 mg (CANCELED) 0.5 mg, Intravenous, EVERY 8 HOURS PRN, Starting on Sat09/08/13 at 1647, Until Sat09/09/13 at 0938, Anxiety, for nausea or vomiting, Routine 2219 (Given - Provider: Lizbet Conklin RN) thrombin (Bovine) (THROMBINAR) kit (CANCELED) ONCE PRN, Starting on Sat09/08/13 at 1305, Until Sat09/08/13 at 1522, Intra-Operative (Intra-Procedure) 1305 (Given - Provider: Rios Gonzalez MD) Linked Groups Order Group 1: hydromorphone (DILAUDID) tablet 2 mgJump to med 2 mg, Oral, EVERY 4 HOURS PRN, Starting on Sat09/08/13 at 1522, Until Sat09/09/13 at 1912, Pain, For Mild pain. Do not exceed 6 mg in 4 hours. If pain not relieved, call provider., Routine Or hydromorphone (DILAUDID) tablet 4 mg (CANCELED)Jump to med 4 mg, Oral, EVERY 4 HOURS PRN, Starting on Sat09/08/13 at 1522, Until Sat09/09/13 at 1912, Pain, For Moderate pain. Do not exceed 6 mg in 4 hours. If pain not relieved, call provider., Routine Or hydromorphone (DILAUDID) tablet 6 mg (CANCELED)Jump to med 6 mg, Oral, EVERY 4 HOURS PRN, Starting on Sat09/08/13 at 1522, Until Sat09/09/13 at 1912, Pain, For Severe pain. Do not exceed 6 mg in 4 hours. 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
--- OUTSIDE RECORDS SUMMARY | 2024-03-17 18:34 | XMS_ITS | Encounter Summary ---
[place] [address] Care Team Providers Care Hospice Patient Care Secretary Name Role Phone Mary Alice Domingo MANUELA Primary Care Provider [phone] Encounter Details Date Type Department Care Team (Latest Contact Info) Description 09/08/2013 9:14 AM EST - 09/09/2013 5:00 PM [facility] Hospital Encounter [address] [place] [address] Rios Gonzalez MD [facility] [address] Herniated nucleus pulposus, C6-7; Rhinitis Discharge Disposition: Home Social History Tobacco Use [...] them. 3. You should also take an uixg-sqh-lklfipx stool softener, such as Colace or Senna, [...] of your pain medication, please contact the [facility] Line[facility] [phone]. PRESCRIPTION RENEWAL REQUESTS CAN TAKE UP TO 3 DAYS TO FILL. YOU WILL BE REQUIRED TO PROCEDURE ANALYST YOUR NARCOTIC REFILL PRESCRIPTION IN PERSON AT [facility] OR IT CAN BE MAILED TO YOUR PHARMACY. [place] J Collar Instructions: 1. You are being [...] against the skin, please call the [facility] at the number below. 5. [...] fallen off already. PLEASE CALL US AT [phone] TO SPEAK WITH A SPINE CENTER NURSE [...] Important Phone Numbers: Clinical issues, nurse questions: [phone] Medication renewals: [phone] Appointments for Marielena Gonzalez: [phone] Follow Up Appointments: You will have follow-up appointments at [facility] as indicated in the ???Future Appointments and [...] Time Provider Department Center 10/05/2013 11:20 AM iRos Gonzalez MD [facility] 11/24/2013 1:00 PM Justin Starkey MD Le[facility] Gastro [facility] If you have questions or concerns: [...] been followed by nursing and the ortho WEB PRESS OPERATOR ASSISTANT Mahnaz Fischer. The patients last void was 400cc with a PVR of 184cc. The ortho WEB PRESS OPERATOR ASSISTANT is aware of. * Isidoro Quezada - [...] disabled amy, not employed, and lives in [place], [place]. Pt denies the need for VNAservices and feels she and her can manage. Pt requests a Jr FWW and has not preference so I have ordered from [facility] who will deliver to her room this [...] General: NAD, awake/alert, responds to questions Neck: King Sal[place] J collar in place, left on with [...] Julita CASON. Patient ready for transfer to [facility] for xray. documented in this encounter H&P [...] performed by Abel Carlton MD at [facility] ??? Arthrodesis, ant interbody,decompression; cervical below c2 09/08/2013 ARTHRODESIS, ANT INTERBODY,DECOMPRESSION; CERVICAL BELOW C2 performed by Rios Gonzalez MD at [facility] ??? Arthrd ant interdy cervcl belw c2 ea addl ntrspc 09/08/2013 @ARTHRODESIS ANT INTERBDY CERVCL BELOW C2 EA ADDL INTRSPACE performed by Rios Gonzalez MD at [facility] ??? Anterior instrumentation 2-3 vertebral segments 09/08/2013 @ANT. SPINAL INSTRUMENTATION, 2-3 VERTEBRA, SEGMENTED performed by Rios Gonzalez MD at [facility] ??? Allograft for spine surgery only structural 09/08/2013 ALLOGRAFT FOR SPINE SURGERY ONLY; STRUCTUAL performed by Rios Gonzalez MD at [facility] Social History: Patient lives [...] assisting as necessary, i did provide a environmental health and safety intern per her request. ?? Reviewed cervical collar [...] training Total timed interventions: 10 minutes Pager: [phone] BRENDON KINCAID OT 09/09/2013 Occupational Therapy Rehabilitation [...] performed by Abel Carlton MD at [facility] ??? Arthrodesis, ant interbody,decompression; cervical below c2 09/08/2013 ARTHRODESIS, ANT INTERBODY,DECOMPRESSION; CERVICAL BELOW C2 performed by Rios Gonzalez MD at [facility] ??? Arthrd ant interdy cervcl belw c2 ea addl ntrspc 09/08/2013 @ARTHRODESIS ANT INTERBDY CERVCL BELOW C2 EA ADDL INTRSPACE performed by Rios Gonzalez MD at [facility] ??? Anterior instrumentation 2-3 vertebral segments 09/08/2013 @ANT. SPINAL INSTRUMENTATION, 2-3 VERTEBRA, SEGMENTED performed by Rios Gonzalez MD at [facility] ??? Allograft for spine surgery only structural 09/08/2013 ALLOGRAFT FOR SPINE SURGERY ONLY; STRUCTUAL performed by Riso Gonzalez MD at [facility] Social History: Patient is disabled and lives with her significant other in a mobile home in [place], [place]. 10 steps to enter with kait [...] minutes Total timed treatment: 0 minutes RE LAY PT Pager: [phone] * Plan of Care - Keren Hammond [...] The patient was instructed to wear a [place] J at all times. These parameters were reinforced by physical therapy. The patient???s QUARTZ CUTTER was discontinued on POD#1 and was transitioned [...] them. 3. You should also take an rhgm-pkw-vfwdzwp stool softener, such as Colace or Senna, [...] of your pain medication, please contact the [facility] Prescription Lineat [phone]. PRESCRIPTION RENEWAL REQUESTS CAN TAKE UP TO 3 DAYS TO FILL. YOU WILL BE REQUIRED TO PROCEDURE ANALYST YOUR NARCOTIC REFILL PRESCRIPTION IN PERSON AT [facility] OR IT CAN BE MAILED TO YOUR PHARMACY. [place] J Collar Instructions: 1. You are being [...] pressing against the skin, please call the [facility] Nursing [facility] at the number below. 5. [...] fallen off already. PLEASE CALL US AT [phone] TO SPEAK WITH A SPINE CENTER NURSE [...] Important Phone Numbers: Clinical issues, nurse questions: [phone] Medication renewals: [phone] Appointments for Marielena Gonzalez: [phone] Follow Up Appointments: You will have follow-up appointments at [facility] as indicated in the ???Future Appointments and [...] 11:20 AM Rios Gonzalez MD Leb Spine [facility] 11/24/2013 1:00 PM Justin Starkey MD [facility] Gastro [facility] If you have questions or concerns: Saturday through Saturday, 8 AM- 5 PM, please call Dr. Gonzalez's office at . If it is after 5 PM or on the weekend, please call and ask for orthopedic resident on-call to be paged. Future Appointments and Orders Future Appointments: Provider: Department: Dept Phone: Center: 10/05/2013 11:20 AM Rios Gonzalez MD Spine Center [phone] [facility] 11/24/2013 1:00 PM Justin Starkey MD Gastroenterology [phone] [facility] Primary Care Provider: MARY ALICE DOMINGO APRN [phone] Inpatient Provider Contact Information: If you have questions or concerns: Saturday through Saturday, 8 AM- 5 PM, please call Dr. Gonzalez's office at . If it is after 5 PM or on the weekend, please call and ask for orthopedic resident on-call to be paged. Electronically Signed by: KIARA GAMEZ 09/09/2013 * Op Note - Rios Gonzalez MD - 09/08/2013 2:55 PM EST [facility] Operative Note Patient Name: Poppy Mclaughlin : [id number] MR#: [id number] Case Date: 09/08/2013 Surgeon: Surgeon(s) and Role: [...] Operative Note Patient Name: Poppy Mclaughlin : [id number] MR#: [id number] Case Date: 09/08/2013 Surgeon: Surgeon(s) and Role: * Rios Gonzalez MD - Primary * Vito Kumari MD - Resident Preoperative diagnosis: Cervical radiculopathy Postoperative diagnosis: Cervical radiculopathy Procedure(s): C5-7 ACDF (50061, 53649, 09987, 90312) Anesthesia: General Findings: There was bilateral foraminal [...] intervals supplied above were not validated at [facility]. Results from pediatric patients should be interpreted [...] grafts appear well positioned. Rios Gonzalez MD G DX ORDERABLES * XR cervical spine 1 [...] incomplete bladder emptying- improved Incomplete bladder emptying documented in this encounter Administered Medications Inactive Administered Medications - up to 3 most recent administrations Medication Order MAR Action Action Date Dose Rate Site acetaminophen (TYLENOL) tablet 1,000 mg 1,000 mg, Oral, EVERY 8 HOURS SCHEDULED, First dose on Sat09/08/13 at 2200, Until Discontinued, Maximum dose of acetaminophen is 4000 mg from all sources in 24 hours., Routine Given 09/09/2013 1:52 PM EST 1,000 mg Given 09/09/2013 5:42 AM EST 1,000 mg Given 09/08/2013 9:45 PM EST 1,000 mg amlodipine (NORVASC) tablet 5 mg 5 mg, Oral, DAILY, First dose on Sat09/08/13 at 2000, Until Discontinued, Routine Given 09/09/2013 8:55 AM EST 5 mg buPROPion (WELLBUTRIN) tablet 150 mg 150 mg, Oral, 2 TIMES DAILY, First dose on Sat09/08/13 at 2100, Until Discontinued Given 09/09/2013 8:47 AM EST 150 mg Given 09/08/2013 8:06 PM EST 150 mg ceFAZolin (ANCEF) 1g in dextrose 5% 50mL 1,000 mg (1 g), Intravenous, EVERY 8 HOURS, 3 doses, First dose on Sat09/08/13 at 1545, Last dose on Sat09/09/13 at 0745, Administer over 30 Minutes, For 3 doses postoperatively. Adjust to 8 hours from intraoperative dose., Indication for (Active or Suspected): Prophylaxis New Bag 09/09/2013 11:11 AM EST 1,000 mg 100 mL/hr New Bag 09/09/2013 4:20 AM EST 1,000 mg 100 mL/hr New Bag 09/08/2013 8:00 PM EST 1,000 mg 100 mL/hr citalopram (celeXA) tablet 40 mg 40 mg, Oral, DAILY, First dose on Sat09/08/13 at 2000, Until Discontinued, Routine Given 09/09/2013 9:00 AM EST 40 mg Given 09/08/2013 8:06 PM EST 40 mg dicyclomine (BENTYL) capsule 10 mg 10 mg, Oral, 4 TIMES DAILY, First dose on Sat09/08/13 at 2100, Until Discontinued, Routine Given 09/09/2013 12:4 5 PM EST 10 mg Given 09/09/2013 8:48 AM EST 10 mg Given 09/08/2013 8:03 PM EST 10 mg esomeprazole (NEXIUM) capsule 40 mg 40 mg, Oral, DAILY, First dose on Sat09/08/13 at 2000, Until Discontinued, Routine Given 09/09/2013 8:46 AM EST 40 mg Given 09/08/2013 8:09 PM EST 40 mg fluticasone (FLONASE) 50 mcg/actuation nasal spray 1 spray 1 spray, Each Nare, 2 TIMES DAILY, First dose on Sat09/08/13 at 2100, Until Discontinued, Routine Given 09/09/2013 9:01 AM EST 1 spray Given 09/08/2013 8:14 PM EST 1 spray gabapentin (NEURONTIN) capsule 300 mg 300 mg, Oral, EVERY MORNING, First dose on Sat09/09/13 at 0700, Until Discontinued, Routine Given 09/09/2013 6:04 AM EST 300 mg gabapentin (NEURONTIN) capsule 600 mg 600 mg, Oral, NIGHTLY, First dose on Sat09/08/13 at 2100, Until Discontinued, Routine Given 09/08/2013 8:07 PM EST 600 mg hydromorphone (DILAUDID) injection 0.2-0.4 mg 0.2-0.4 mg, Intravenous, EVERY 5 MIN PRN, Starting on Sat09/08/13 at 1439, Until Sat09/08/13 at 1813, Pain, For moderate pain give: 0.2 mg every 5 minute prn For severe pain give: 0.4 mg every 5 minutes prn Maximum dose: 4 mg per hour Hold for respiratory rate less than 10 per minute., PACU Recovery, Routine Given 09/08/2013 4:59 PM EST 0.4 mg Given 09/08/2013 4:35 PM EST 0.4 mg Given 09/08/2013 4:12 PM EST 0.2 mg hydromorphone (DILAUDID) injection 0.4 mg 0.4 mg, Intravenous, EVERY 2 HOURS PRN, Starting on Sat09/08/13 at 1522, Until Sat09/09/13 at 0938, Pain, Routine Given 09/08/2013 9:44 PM EST 0.4 mg hydromorphone (DILAUDID) tablet 2 mg 2 mg, Oral, EVERY 4 HOURS PRN, Starting on Sat09/08/13 at 1522, Until Sat09/09/13 at 1912, Pain, For Mild pain. Do not exceed 6 mg in 4 hours. If pain not relieved, call provider., Routine Given 09/08/2013 8:09 PM EST 2 mg hydromorphone (DILAUDID) tablet 4 mg 4 mg, Oral, EVERY 4 HOURS PRN, Starting on Sat09/08/13 at 1522, Until Sat09/09/13 at 1912, Pain, For Moderate pain. Do not exceed 6 mg in 4 hours. If pain not relieved, call provider., Routine Given 09/08/2013 5:15 PM EST 4 mg hydromorphone (DILAUDID) tablet 6 mg 6 mg, Oral, EVERY 4 HOURS PRN, Starting on Sat09/08/13 at 1522, Until Sat09/09/13 at 1912, Pain, For Severe pain. Do not exceed 6 mg in 4 hours. If pain not relieved, call provider., Routine Given 09/09/2013 3:48 PM EST 6 mg Given 09/09/2013 11:19 AM EST 6 mg Given 09/09/2013 5:42 AM EST 6 mg lactated ringers infusion 1,000 mL 1,000 mL, at 100 mL/hr, Intravenous, CONTINUOUS, Starting on Sat09/08/13 at 1000, Until Sat09/08/13 at 1813, Day of Surgery (Day of Procedure) New Bag 09/08/2013 11:03 AM EST mL New Bag 09/08/2013 10:22 AM EST 1,000 mLs 100 mL/hr lactated ringers infusion 1,000 mL 1,000 mL, at 100 mL/hr, Intravenous, CONTINUOUS, Starting on Sat09/08/13 at 1545, Until Sat09/09/13 at 0937 New Bag 09/09/2013 1:55 AM EST 1,000 mLs 100 m L/hr New Bag 09/08/2013 3:27 PM EST 1,000 mLs 100 mL/hr lorazepam (ATIVAN) injection 0.5 mg 0.5 mg, Intravenous, EVERY 8 HOURS PRN, Starting on Sat09/08/13 at 1647, Until Sat09/09/13 at 0938, Anxiety, for nausea or vomiting, Routine Given 09/08/2013 10:19 PM EST 0.5 mg multivitamin Ntno-Vz-PL-Min (THERAPEUTIC-M) 27-0.4 mg tablet 1 tablet 1 tablet, Oral, DAILY, First dose on Sat09/08/13 at 2000, Until Discontinued Given 09/09/2013 8:46 AM EST 1 tablet polyethylene glycol (MIRALAX) packet 17 g 17 g, Oral, 2 TIMES DAILY, First dose on Sat09/08/13 at 2100, Until Discontinued, Administer if needed per patient's routine or if no bowel movement within 48 hours, Routine Given 09/09/2013 8:48 AM EST 17 g senna-docusate (PERICOLACE) 8.6-50 mg per tablet 1-4 tablet 1-4 tablet, Oral, 2 TIMES DAILY, First dose on Sat09/08/13 at 2100, Until Discontinued, Start with 1 tablet or liquid equivalent orally twice daily and titrate up to achieve: 1. One bowel movement at least every 48 hours, AND 2. Without straining, Routine Given 09/09/2013 8:49 AM EST 2 tablets Given 09/08/2013 8:09 PM EST 2 tablets sodium chloride 0.9 % flush 5 mL 5 mL, Intravenous, 2 TIMES DAILY, First dose on Sat09/08/13 at 2100, Until Discontinued, Routine Given 09/09/2013 9:02 AM EST 5 mLs Given 09/08/2013 8:15 PM EST 5 mLs documented in this [...] in morning) 0855 (Given - Provider: Nissa Bah, KAMLA) buPROPion (WELLBUTRIN) tablet 150 mg (CANCELED) 150 [...] Hammond RN)1111 (New Bag - Provider: Nissa Bah RN) ceFAZolin (ANCEF) 2g in dextrose 5% 50 [...] Hammond RN) 0900 (Given - Provider: Nissa Bah RN) dicyclomine (BENTYL) capsule 10 mg (CANCELED) 10 mg, Oral, 4 TIMES DAILY, First dose on Sat09/08/13 at 2100, Until Discontinued, Routine 2002 (Given - Provider: Keren Hammond RN) 0848 (Given - Provider: Nissa Bah RN)1245 (Given - Provider: Nissa Bah RN)1700 (Due) esomeprazole (NEXIUM) capsule 40 mg (CANCELED) [...] (Given - Provider: Keren Hammond RN) multivitamin Twni-Xz-AQ-Min (THERAPEUTIC-M) 27-0.4 mg tablet 1 tablet (CANCELED) 1 tablet, Oral, DAILY, First dose on Sat09/08/13 at 1999, Until Discontinued 1999 (Not Given - Provider: Keren Hammond RN - Reason: Patient/family refused) 0846 (Given - Provider: Nissa Bah RN) polyethylene glycol (MIRALAX) packet 17 g (CANCELED) [...] RN)1119 (See Alternative - Provider: Nissa Bah, RN)1548 (See Alternative - Provider: Felipa Noble, RN) hydromorphone (DILAUDID) tablet 4 mg (CANCELED)(Linked Group 1) 4 mg, Oral, EVERY 4 HOURS PRN, Starting on Sat09/08/13 at 1522, Until Sat09/09/13 at 1912, Pain, For Moderate pain. Do not exceed 6 mg in 4 hours. If pain not relieved, call provider., Routine 1714 (Given - Provider: Dion Light RN)2008 (See Alternative - Provider: Keren Hammond RN) 54 (See Alternative - Provider: Keren Hammond RN)0542 [...] (See Alternative - Provider: Keren Hammond RN) 54 (Given - Provider: Keren Hammond RN)0542 (Given - Provider: Keren Hammond RN)1119 (Given - Provider: Nissa Bah, KAMLA)1548 (Given - Provider: Felipa Noble, KAMLA) lorazepam (ATIVAN) injection 0.5 mg (CANCELED) 0.5 mg, Intravenous, EVERY 8 HOURS PRN, Starting on Sat09/08/13 at 1647, Until Sat09/09/13 at 0938, Anxiety, for nausea or vomiting, Routine 221 (Given - Provider: Lizbet Conklin RN) thrombin [...] Routine documented in this encounter Care Teams Hospice Patient Care Secretary Relationship Specialty Start Date End Date Mary Alice Domingo APRN PCP - General 10/12/11 11/12/18 documented as of this encounter
--- OUTSIDE RECORDS SUMMARY | 2024-03-17 18:34 | XMS_ITS | Encounter Summary ---
Author Organization [facility] [place] [address] Care Team Providers Care Straight Knife Cutter Machine Name Role Phone Mary Alice Cage MANUELA Primary Care Provider [phone] Encounter Details Date Type Department Care Team (Latest Contact Info) Description 11/04/2012 11:38 AM EDT - 11/04/2012 5:20 PM EDT Hospital Encounter [place] [id number] Abel Rhoades MD [facility] [place] [address] Discharge Disposition: Home Social History Tobacco Use [...] 101.3 F. The number for questions is [phone] before 5 PM weekdays and [phone] after 5 PM and weekends. Pain Medication: No driving for 8 hours after any dose of Percocet. You may use ibuprofen (motrin, advil) in addition if your pain is not totally controlled. Follow-up: A follow-up appointment will be scheduled with Dr. Rhoades in 4-6 weeks. The appointment will be mailed to you. Please call [phone] (clinic number for appointments) to confirm the [...] Rhoades MD - 11/04/2012 3:04 PM EDT [facility] Operative Note Patient Name: Poppy Pino : [id number] MR#: [id number] Case Date: 11/04/2012 Surgeon: Surgeon(s) and Role: [...] 10-mm port site was closed with interrupted lhbuly-wp-wbpbj 0-Vicryl suture followed by running subcuticular 4-0 [...] 2:55 PM EDT) Surgical Pathology Report ? [facility] ? Provider: ?? ABEL RHOADES ? Pt. Name: ?? POPPY PINO ? Acc #: ?[id number] ?Pt. ? Col Date: ?? 11/04/2012 ? /Sex: ?1960,(52 years),Female ? Rec Date: ?? 11/04/2012 ? LOC: ?SDP ? SURGICAL PATHOLOGY ? ---Pathologic Diagnosis--- ? Gallbladder, cholecystectomy : ?Chronic cholecystitis. ? CR-0 ? 11/06/12 ? BJM ? 11/07/12 Verified by: ? Nadir uGy MD ? Pathologist ? (Electronic Signature) ? [...] MD PATHOLOGY/CYTOLOGY O RODDY Performing Organization Address [facility] Co de Phone Number VIKTOR TODD * Specimen to Pathology (surgical or derm) (11/04/2012 2:45 PM EDT) AP Specimen 11/04/2012 2:45 PM EDT 11/04/2012 2:45 PM EDT Narrative VIKTOR PATELCINTHYAASHLEY - 11/04/2012 2:45 PM EDT Specimen requisition ordered. ??Separate Pathology report to follow Abel Rhoades MD PATHOLOGY/CYTOLOGY O RODDY Performing Organization Address [facility] Co de Phone Number VIKTOR TODD documented [...] on Sat11/04/12 at 1345, Until Sat11/04/12 at 2050, Day of Surgery (Day of Procedure) New [...] on Sat11/04/12 at 1511, Until Sat11/04/12 at 2050, Pain, mild to moderate pain, May give [...] PRN, Starting on Sat11/04/12 at 1511, Until e 11/04/12 at 2050, Pain, severe pain, May give additional 5 mg in 30 minutes times 1 if pain not relieved., Routine documented in this encounter Care Teams Straight Knife Cutter Machine Relationship Specialty Start Date End Date Mary Alice Cage APRN PCP - General 10/12/11 11/12/18 documented as of this encounter
--- OUTSIDE RECORDS SUMMARY | 2024-03-17 18:34 | XMS_ITS | Encounter Summary ---
[place] [address] Care Team Providers Care Professor Of Poultry Science Name Role Phone Mary Alice Cage APRN Primary Care Provider Encounter Details Date Type Department Care Team (Late st Contact Info) Description 07/08/2013 Telephone [place] [address] Surendra Amezcua Social History Tobacco Use Types Packs/Day Years [...] encounter Miscellaneous Notes * Telephone Encounter - Surendra Amezcua - 07/08/2013 12:38 PM EST Let patient know of her her upcoming appointments documented in this encounter Plan of Treatment Not on file documented as of this encounter Visit Diagnoses Not on filedocumented in this encounter Care Teams Professor Of Poultry Science Relationship Specialty Start Date End Date Mary Alice Cage APRN PCP - General 10/12/11 11/12/18 documented as of this encounter
--- OUTSIDE RECORDS SUMMARY | 2024-03-17 18:34 | XMS_ITS | Encounter Summary ---
[place] [address] Care Team Providers Care Lathe Turner Name Role Phone Mary Alice Cage MANUELA Primary Care Provider [phone] Reason for Visit * Reason Comments Arm Pain RIGHT side Back Pain Right Shoulder Pain Encounter Details Date Type Department Care Team (Latest Contact Info) Description 07/07/2013 8:20 AM EST Office [place] [address] [facility] [place] [address] Herniated nucleus pulposus, C6-7 Right, with degenderative [...] - Inhaled Oxygen Concentration - - Weight 68.5 kg (151 lb) 07/07/2013 8:11 AM EST Height 154.9 cm (5' 1) 07/07/2013 8:11 AM EST Body Mass Index 28.53 07/07/2013 8:11 AM EST documented in this encounter Progress Notes * Rios Acuna MD - 07/07/2013 9:06 AM EST INTERVAL HISTORY: Ms. Mclaughlin returns to see me to discuss treatment for her neck pain and right C6-C7 radiculopathy. To review, this is a 52-year-old female who developed pain from her neck radiating primarily to her right shoulder, posterolateral arm and forearm into the radial aspect of the right hand. She feels this has been getting worse lately. She has been treated with an epidural steroid injection, ibuprofen, and physical therapy, none of which have helped. She notes that she quit smoking a week ago. She decided she wants to proceed with surgery. She did have an MRI in the past that demonstrated disk herniations on the right at C5-C6 and C6-C7. The quality of the MRI was low, though it did suggest disk herniations at both levels. PHYSICAL EXAMINATION: General: The patient is comfortable, in no acute distress. Neck: Her neck is tender to palpation posteriorly in the lower cervical spine. Her motion is quite limited, 20 degrees of flexion, 5 degrees of extension, 20 degrees of rotation, and 10 degrees of side bending. Neurologic Exam: She has 4/5 strength in her right wrist extensor, right wrist flexors, and 4/5 strength at her bilateral hand intrinsics. She has diminished sensation in the radial aspect of the right greater than left hand. Reflexes are 1/4 throughout the upper and lower extremities and symmetric. She has a positive Spurling's on the right. Brown's and Babinski are negative. She has no clonus. ASSESSMENT/PLAN: Ms. Mclaughlin is a 52-year-old female who has relatively longstanding neck and right C6 and C7 radicular symptoms. She has failed to improve with nonoperative treatment and wants to proceed with surgery. Prior to going ahead with surgery, we are going to repeat her MRI as it is eight months old and of rather poor quality. I will have her come back and see me after that is done. We will also get an AP x-ray as she has not had one in the past. Her MRI is difficult to interpret, and I am unable to tell if there is disk material posterior to the C6 vertebral body or if this just represents artifact. Based on the results of the MRI, we will determine if we will do a two-level anterior cervical diskectomy and fusion versus a C6 corpectomy. I do not believe she needs to have nerve conduction studies/EMG given that the epidural steroid injection markedly improved her radicular symptoms, implicating the cervical spine as the pain generator. documented in this encounter Plan of Treatment Not on file documented as of this encounter Results * MRI cervical spine WO contrast (07/11/2013 12:15 PM EST) Anatomical Region Laterality Modality C-spine Magnetic Resonan ce 07/11/2013 12:1 5 PM EST Narrative 07/11/2013 3:37 PM EST Examination MR Cspine WO Nehemias Clinical History [...] Facundo Son MD - 07/11/2013 Examination MR Mamie WO Nehemias Clinical History Cervical radiculopathy update [...] C5-C6. Rios Acuna MD IMG MRI ORDERABLES * XR cervical spine 1 view (07/07/2013 9:27 AM EST) Anatomical Region Laterality Modality C-spine N/A Radiographic Martha ging 07/07/2013 9:27 AM EST Narrative 07/07/2013 11:25 AM EST Examination CERVICAL SPINE LATERAL ONLY Clinical History Please do AP view only, was not previously Comparison Cervical spine radiograph from 07/07/2013 and 11/03/2012. MR cervical spine from 10/23/2012. CT chest from 08/07/2012. Technique Single view of the cervical spine, AP. Findings There are multilevel degenerative changes of the cervical spine with uncovertebral arthropathy most pronounced at C5-C6, in addition to diffuse facet arthropathy. No fracture or subluxation. Diffuse granuloma are visualized within the lung apices and are better appreciated on prior CT chest. ?? Impression ? 1. Cervical spine spondylitic changes, as described above. ? 2. Unchanged diffuse granulomatous disease of the lungs. Film and interpretation reviewed by the attending Procedure Note Andriy Jay MD - 07/07/2013 Examination CERVICAL SPINE LATERAL ONLY Clinical History Please do AP view only, was not previously Comparison Cervical spine radiograph from 07/07/2013 and 11/03/2012. MR cervicalspine from 10/23/2012. CT chest from 08/07/2012. Technique Single view of the cervical spine, AP. Findings There are multilevel degenerative changes of the cervical spine with uncovertebral arthropathy most pronounced at C5-C6, in addition to diffuse facet arthropathy. No fracture or subluxation. Diffuse granuloma arevisualized within the lung apices and are better appreciated on prior CT chest. Impression 1. Cervical spine spondylitic changes, as described above. 2. Unchanged diffuse granulomatous disease of the lungs. Film and interpretation reviewed by the attending [...] myelopathy documented in this encounter Care Teams Lathe Turner Relationship Specialty Start Date End Date Mary Alice Cage APRN PCP - General 10/12/11 11/12/18 documented as of this encounter
--- OUTSIDE RECORDS SUMMARY | 2024-03-17 18:34 | XMS_ITS | Encounter Summary ---
[place] [address] Care Team Providers Care Dross Puller Name Role Phone Mary Alice Cage MANUELA Primary Care Provider [phone] Reason for Visit * Reason Comments Neck And Arm Pain right Encounter Details Date Type Department Care Team (Latest Contact Info) Description 12/18/2012 11:00 AM EDT Office [place] [address] Rios Acuna MD [facility] [place] [address] Herniated nucleus pulposus, C6-7 Right, with degenderative [...] - Inhaled Oxygen Concentration - - Weight - - Height 154.9 cm (5' 1) 12/18/2012 10:59 AM EDT Body Mass Index - - documented in this encounter Progress Notes * Rios Acuna MD - 12/18/2012 11:57 AM EDT INTERVAL HISTORY: Ms. Mclaughlin returns today to discuss her neck and right upper extremity pain. Ms. Mclaughlin is a 52-year-old female who saw me over a month ago in regards to her neck pain that radiates to her right lateral and posterior arm and forearm with some numbness in her radial side digit. She did have a positive median nerve compression test, so I sent her for electrodiagnostic study that showed no evidence of median or ulnar neuropathy. I told her treatment options were antiinflammatory medications, physical therapy, injections, and C5 through C7 ACDF. She got an injection about three weeks ago that failed to give her any relief. If anything, she feels as though her neck is somewhat more stiff since the injection. She feels as though as she would likely want to proceed with surgery in the future, though she notes that she has to stop smoking first. She has looked into options for quitting smoking, but she has not made any strong effort as of yet. She did note that she switched to smoking light cigarettes, but she is still smoking [id number] packs per day. I told the patient that she would indeed need to quit all nicotine products prior to surgery in order to prevent an increased risk of pseudoarthrosis. I told her that surgery was elective and is primarily for improvement of pain in her right arm. She is going to work on smoking cessation, then will make an appointment to see me once she has successfully quit. Prior to that, I would like her to get an AP x-ray of the cervical spine as she has not yet had one. We do have lateral, flexion and extension views. Her MRI is from 10/23/2012. Over 15 minutes of this 20-minute visit were spent in direct patient counseling. documented in this encounter Plan of Treatment [...] myelopathy documented in this encounter Care Teams Dross Puller Relationship Specialty Start Date End Date Mary Alice Cage APRN PCP - General 10/12/11 11/12/18 documented as of this encounter
--- OUTSIDE RECORDS SUMMARY | 2024-03-17 18:34 | XMS_ITS | Encounter Summary ---
[facility] [address] Care Team Providers Care Mud Jack Operator Name Role Phone [place] Alice davis Rajendra ROY Primary Care Provider [phone] Reason for Visit * Reason Comments Symptom, Headache Cervicalgia Encounter Details Date Type Department Care Team (Latest Contact Info) Description 11/27/2012 7:00 AM EDT Procedure visit [place] [address] Hiro Cervantes MD [address] [place] [address] Hiro Cervantes MD [facility] [place] [address] Cervicalgia (Primary Dx) Discharge Disposition: Home Social History [...] Sign Reading Time Taken Comments Blood Pressure 142/91 11/27/2012 7:40 AM EDT Pulse 72 11/27/2012 7:40 AM EDT Temperature - - Respiratory Rate - - Oxygen Saturation 99% 11/27/2012 7:40 AM EDT Inhaled Oxygen Concentration - - Weight 74.8 kg (165 lb) 11/27/2012 7:16 AM EDT Height 160 cm (5' 3) 11/27/2012 7:16 AM EDT Body Mass Index 29.23 11/27/2012 7:16 AM EDT documented in this encounter Patient Instructions * Patient Instructions* Livia Davis RN - 11/27/2012 7:36 AM EDT [facility] Discharge Instructions: You were seen by Dr. Dominic Albarado MD and Hiro Cervantes MD who performed cervical epidural steroid injection. [x] You may resume your normal activities: [...] or proceed to your local emergency department. LIVIA DAVIS RN Special instructions documented in this encounter Progress Notes * Livia Davis RN - 11/27/2012 7:19 AM EDT Pre-Procedure Screening Questions: 1. Status: No 2. 3. Patient states they have a experienced truck driver to transport after procedure? Yes 4. Patient taking antibiotics at present? No 5. NPO per Pain Management Center protocol? Yes 6. 7. Patient diabetic: No __ borderline (not treated with medications) __ managed with oral medications __ managed with injected medications 8. Patient routinely taking anticoagulants ? No Date stopped Current INR Patient Vital Signs documented in Doc Flowsheets associated with this encounter. Patient Discharge Instructions were reviewed with patient and copy provided to patient. Ibuprofen. IV anxiolysis: Yes IV placement: Location of IV Insertion: [ x ] Right [ ] Left [ x ] hand [ ] anterior forearm [ ] posterior forearm [ ] AC [ ] upper arm [ ] other: IV Gauge: [ ] 24G x[ ] 22G [ ] 20G After IV insertion completed, IV was secured with occlusive transparent dressing. IV site is patentand intact. Patient is without complaint upon completion of IV insertion. Started by LAF Initiated by: Livia Davis RN IV Solution: LR 1000ml - rate as directed by proceduralist Total Volume Intravenous Fluid infused documented in the Medication Administration Record (MAR) Site condition at IV removal: [ x ] Clear [ ] Bruised [ ] other: Administration of IV anxiolysis procedural medications documented in MAR as ordered by proceduralist documented in this encounter Procedure Notes * Dominic Albarado MD - 11/27/2012 7:42 AM EDTAssociated Order(s): EPIDURAL STEROID INJECTION Procedure(s): EPIDURAL STEROID INJECTION Pre-Procedure Diagnose(s): Cervicalgia STERIOID INJECTION PROCEDURE NOTE Poppy Mclaughlin has been referred to the [facility] for cervical epidural steroid injection. Poppy Mclaughlin was greeted by the nurse who verified patients name and . Patient was then takento the fluoroscopy suite. Poppy Mclaughlin was interviewed and the medical record reviewed. There were no medical, pharmacologic, radiographic, or other structural contraindications to attempting fluoroscopically guided translaminar cervical epidural steroid injection. Risks and expected side effects as well as potential benefits of the procedure were reviewed with Poppy Mclaughlin and her voiced concerns addressed. The patient consent form was signed and witnessed. Standard time-out procedure was performed. Poppy Mclaughlin was placed in the prone position on the fluoroscopy table and automated blood pressure cuff and pulse oximeter applied. The skin entry point for entering/approaching the epidural space by a right C7-T1 and marked. Following thorough Chlorhexidine preparation of the skin and draping and 1% lidocaine infiltration of the skin entry point and subcutaneous tissues, a 18 gauge touhy needle was placed under fluoroscopic guidance and with loss of resistance technique into the epidural space. Needle tip placement and depth were aided and confirmed by fluoroscopy. There was no paresthesia or return of blood or CSF through the needle. 1 cc's of Omnipaque 240 were injected with clear epidural spread confirmed with fluoroscopy. 80 mg of Depomedrol was injected. There was not any unusual discomfort expressed by Poppy Mclaughlin. Poppy Mclaughlin's vital signs were stable throughout the procedure and were as recorded in nursing records. Intravenous drugs for sedation and analgesia were not given as ordered by me. Follow up plans and appointments were discussed with Poppy Mclaughlin. Post procedure instruction was given as documented in nursing records and having met discharge criteria she was discharged from the [facility]. COMMENTS: Follow up PRN. Dominic Albarado MD Pain Medicine Fellow, [facility] I was the attending physician supervising the resident in the above care and I was present with theresident for the entire procedure. HIRO CERVANTES MD documented in this encounter Miscellaneous Notes * Miscellaneous - Provider, Scanning - 11/30/2012 8:32 PM EDT documented in this encounter Plan of Treatment Not on file documented as of this encounter Procedures Procedure Name Priority Date/Time Associated Diagnosis Comments EPIDURAL STEROID INJECTION Routine 11/27/2012 2:04 PM EDT Cervicalgia documented in this encounter Results * EPIDURAL STEROID INJECTION (11/27/2012 2:04 PM EDT) Narrative Hiro Cervantes MD - 11/27/2012 2:04 PM EDT Hiro Cervantes MD ? 11/27/2012 ??2:04 PM STERIOID INJECTION PROCEDURE NOTE Poppy Mclaughlin has been referred to the [facility] for cervical epidural steroid injection. Poppy Mclaughlin was greeted by the nurse who verified patients name and . ??Patient was then taken to the fluoroscopy suite. Poppy Mclaughlin was interviewed and the medical record reviewed. ?? There were no medical, pharmacologic, radiographic, or other structural contraindications to attempting fluoroscopically guided translaminar cervical epidural steroid injection. Risks and expected side effects as well as potential benefits of the procedure were reviewed with Poppy Mclaughlin and her voiced concerns addressed. ??The patient consent form was signed and witnessed. ??Standard time-out procedure was performed. Poppy Mclaughlin was placed in the prone position on the fluoroscopy table and automated blood pressure cuff and pulse oximeter applied. ??The skin entry point for entering/approaching the epidural space by a right C7-T1 and marked. ??Following thorough Chlorhexidine preparation of the skin and draping and 1% lidocaine infiltration of the skin entry point and subcutaneous tissues, a 18 gauge touhy needle was placed under fluoroscopic guidance and with loss of resistance technique into the epidural space. ??Needle tip placement and depth were aided and confirmed by fluoroscopy. There was no paresthesia or return of blood or CSF through the needle. 1 cc's of Omnipaque 240 were injected with clear epidural spread confirmed with fluoroscopy. 80 mg of Depomedrol was injected. There was not any unusual discomfort expressed by Poppy Mclaughlin. Poppy Mclaughlin's vital signs were stable throughout the procedure and were as recorded in nursing records. ??Intravenous drugs for sedation and analgesia were not given as ordered by me. Follow up plans and appointments were discussed with Poppy Mclaughlin. Post procedure instruction was given as documented in nursing records and having met discharge criteria she was discharged from the [facility]. COMMENTS: Follow up PRN. Dominic Albarado MD Pain Medicine Fellow, [facility] I was the attending physician supervising the resident in the above care and I was present with the resident for the entire procedure. HIRO CERVANTES MD Procedure Note Dominic Albarado MD - 11/27/2012 7:42 AM EDT STERIOID INJECTION PROCEDURE NOTE Poppy Mclaughlin has been referred to the [facility] forcervical epidural steroid injection. Poppy Mclaughlin was greeted by the nurse who verified patients name andDOB. Patient was then taken to the fluoroscopy suite. Poppy Mclaughlin was interviewed and the medical record reviewed. Therewere no medical, pharmacologic, radiographic, or other structuralcontraindications to attempting fluoroscopically guided translaminarcervical epidural steroid injection. Risks and expected side effects aswell as potential benefits of the procedure were reviewed with Poppy Mccormick and her voiced concerns addressed. The patient consent form wassigned and witnessed. Standard time-out procedure was performed. Poppy Mclaughlin was placed in the prone position on the fluoroscopy tableand automated blood pressure cuff and pulse oximeter applied. The skinentry point for entering/approaching the epidural space by a right C7-T1and marked. Following thorough Chlorhexidine preparation of the skin anddraping and 1% lidocaine infiltration of the skin entry point andsubcutaneous tissues, a 18 gauge touhy needle was placed underfluoroscopic guidance and with loss of resistance technique into theepidural space. Needle tip placement and depth were aided and confirmedby fluoroscopy. There was no paresthesia or return of blood or CSF throughthe needle. 1 cc's of Omnipaque 240 were injected with clear epiduralspread confirmed with fluoroscopy. 80 mg of Depomedrol was injected. Therewas not any unusual discomfort expressed by Poppy Mclaughlin. Poppy Mclaughlin's vital signs were stable throughout the procedure andwere as recorded in nursing records. Intravenous drugs for sedation andanalgesia were not given as ordered by me. Follow up plans and appointments were discussed with Poppy Mclaughlin. Postprocedure instruction was given as documented in nursing records andhaving met discharge criteria she was [facility] from the [facility]. COMMENTS: Follow up PRN. Dominic Albarado MD Pain Medicine Fellow, [facility] I was the attending physician supervising the resident in the above careand I was present with the resident for the entire procedure. HIRO SCOTT MD Hiro Cervantes MD NEUROLOGY ORDERABLES documented in this encounter Visit Diagnoses Diagnosis Cervicalgia- Primary documented in this encounter Care Teams Mud Jack Operator Relationship Specialty Start Date End Date Mary Alice Cage APRN PCP - General 10/12/11 11/12/18 documented as of this encounter
--- OUTSIDE RECORDS SUMMARY | 2024-03-17 18:34 | XMS_ITS | Encounter Summary ---
[place] [address] Care Team Providers Care Information Systems Director Name Role Phone YaucoMary Alice davis Rajendra ROY Primary Care Provider [phone] Encounter Details Date Type Department Care Team (Late st Contact Info) Description 11/04/2012 1:38 PM EDT Anesthesia [place] [address] Tara Madrid MD [facility] [place] [address] Zachariah Kay MD [facility] [place] [address] Anesthesia Record Procedure Summary Procedure Name Responsible Anesthesiologist Anesthesia Start Time Anesthesia Stop Time LAPAROSCOPIC CHOLECYSTECTOMY WITH CHOLANGIOGRAM (WRVU 11.47) (Abdomen) Tara Madrid MD 11/04/12 1338 11/04/12 1513 Events Date Time Event Comment 11/04/2012 1317 1338 Start 1344 AN Verify 1344 An Start Data 1348 An Induction 1348 An Intubation 1354 Anesthesia Ready 1408 Skin Incision 1443 Break/Relief In 1503 Break/Relief Out 1506 Extubation/LMA Out 1507 an stop data 1513 Stop Meds Name Total Midazolam 2 mg fentaNYL 200 mcg propofol 200 mg Rocuronium 60 mg Ondansetron 8 mg Dexamethasone 8 mg Neostigmine 3 mg Glycopyrrolate 0.2 mg ceFAZolin 1 g lidocaine 4% LTA 4 mL BUPivacaine (Marcaine) (2.5 mg/mL) 0.25% bolus injection (Anesthesia) 10 mL Labetalol 10 mg lactated ringers 700 mL * Agents Name O2 Air N2O Sevoflurane (et) * Blood No blood administrations on file. Lines, Drains, and Airways Type Details Placement Removal (RETIRED) Peripheral IV Line - Single Lumen 11/04/12; 1317; 11/04/12; 1719 11/04/12 1317 by Kaia Rivera RN 11/04/12 1719 by Eva Álvarez RN (RETIRED) Non-Surgical Airway Mask Ventilation: Easy (1); ETT Type: Cuffed; ETT Size: 7 mm; Removal Date: 11/04/12; Removal Time: 1506 11/04/12 1400 by 11/04/12 1506 by Zachariah Kay MD Incision 11/04/12; 1412; abdomen; LDA not present upon assessment (healed); 07/12/21; 0157 11/04/12 1412 by Jesus Fritz RN 07/12/21 0157 by Shobha Padilla, KAMLA documented in this encounter Social History [...] OR Notes * Anesthesia Postprocedure Evaluation - Zachariah Kay MD - 11/06/2012 8:37 AM EDT Patient: Poppy Mclaughlin Procedure(s) Performed: Procedure(s): LAPAROSCOPIC CHOLECYSTECTOMY WITH CHOLANGIOGRAM Actual Anesthetic: general Patient location: PACU Post-op pain: Adequate analgesia Post-op nausea: no nausea or vomiting Last Vitals: Filed Vitals: 11/04/12 1616 BP: 148/92 Pulse: 75 Temp: Resp: 20 Post-op cardiovascular and respiratory status: is stable Level of consciousness: awake, alert and oriented Complications: no apparent complications Fluid Status: normal * Anesthesia Postprocedure Evaluation - Tara Madrid MD - 11/04/2012 5:09 PM EDT Patient: Poppy Mclaughlin Procedure(s) Performed: Procedure(s): LAPAROSCOPIC CHOLECYSTECTOMY WITH CHOLANGIOGRAM Actual Anesthetic: general Patient location: PACU Post-op pain: Adequate analgesia Post-op nausea: no nausea or vomiting Last Vitals: Filed Vitals: 11/04/12 1616 BP: 148/92 Pulse: 75 Temp: Resp: 20 Post-op cardiovascular and respiratory status: is stable Level of consciousness: awake and alert Complications: no apparent complications and tolerated the procedure well Fluid Status: normal * Anesthesia Postprocedure Evaluation - Zachariah Kay MD - 11/04/2012 3:13 PM EDT Patient: Poppy Mclaughlin Procedure(s) Performed: Procedure(s): LAPAROSCOPIC CHOLECYSTECTOMY WITH CHOLANGIOGRAM Actual Anesthetic: general Patient location: PACU Post-op pain: Adequate analgesia Post-op nausea: no nausea or vomiting Last Vitals: Filed Vitals: 11/04/12 1311 BP: 149/91 Pulse: 77 Temp: 37.1 ??C (98.8 ??F) Resp: 20 Post-op cardiovascular and respiratory status: is stable Level of consciousness: awake, alert and oriented Complications: no apparent complications, tolerated the procedure well and no evidence of recall Fluid Status: normal * Anesthesia Preprocedure Evaluation - Tara Madrid MD - 11/03/2012 7:02 PM EDT Today I evaluated Poppy Mclaughlin a 52 y.o. female. Procedure(s): LAPAROSCOPIC CHOLECYSTECTOMY WITH CHOLANGIOGRAM Patient Active Problem List Diagnoses ??? Herniated nucleus pulposus, C6-7 Right, with [...] Gastroenterology procedure [address] jimenez History Substance Use Topics ??? Smoking status: Current Everyday Smoker -- 2.0 packs/day for 20 years Types: Cigarettes ??? Smokeless tobacco: Never Used ??? Alcohol Use: No stopped drinking 2 yrs. ago after a surgery in 2010 Allergies Allergen Reactions ??? Albuterol liquid ??? Egg Medications: MAR and/or home medications have been reviewed. Physical Exam: There were no vitals filed for this visit. There is no height or weight on file to calculate BMI. Airway Assessment: Mallampati: I TM distance: >3 FB Neck ROM: full Cardiovascular Assessment: Pulmonary Assessment: Dental Assessment: Comment: Multiple broken and missing teeth. Patient states none loose. Extremely poot dentition [facility] Assessment: Anesthesia Plan: ASA 2 general, with a(n) intravenous induction 52yo F smoker for lap shruthi. Neg sleep study. pft reviewed and incomplete. Per allergy list: albuterol & egg. Informed Consent: Anesthetic plan and risks discussed with patient. Plan discussed with resident and attending. [facility]. Assessment: documented in this encounter Plan of Treatment Not on file documented as of this encounter Visit Diagnoses Not on filedocumented in this encounter Administered Medications Inactive Administered Medications - up to 3 most recent administrations Medication Order MAR Action Action Date Dose Rate Site BUpivacaine (MARACAINE) 0.25% bolus injection (Anesthesia) PRN, Starting on Sat11/04/12 at 1407, Until Sat11/04/12 at 1513, Anesthesia Intra-op, Routine Given 11/04/2012 2:14 PM EDT 2 mLs Given 11/04/2012 2:07 PM EDT 8 mLs ceFAZolin (ANCEF) injection PRN, Starting on Sat11/04/12 at 1352, Until Sat11/04/12 at 1513, Anesthesia Intra-op, Routine Given 11/04/2012 1:52 PM EDT 1 g dexamethasone (DECADRON) injection PRN, Starting on Sat11/04/12 at 1338, Until Sat11/04/12 at 1513, Anesthesia Intra-op, Routine Given 11/04/2012 1:38 PM EDT 8 mg fentaNYL 50mcg/mL injection PRN, Starting on Sat11/04/12 at 1338, Until Sat11/04/12 at 1513, Pain, Anesthesia Intra-op, Routine Given 11/04/2012 3:00 PM EDT 50 mcg Given 11/04/2012 2:14 PM EDT 50 mcg Given 11/04/2012 1:38 PM EDT 100 mcg glycopyrrolate (ROBINUL) injection PRN, Starting on Sat11/04/12 at 1435, Until Sat11/04/12 at 1513, Anesthesia Intra-op, Routine Given 11/04/2012 2:35 PM EDT 0.2 mg labetalol (NORMODYNE;TRANDATE) injection PRN, Starting on Sat11/04/12 at 1417, Until Sat11/04/12 at 1513, High Blood Pressure, Anesthesia Intra-op, Routine Given 11/04/2012 2:17 PM EDT 10 mg lactated ringers infusion CONTINUOUS PRN, Starting on Sat11/04/12 at 1338, Until Sat11/04/12 at 1513, Anesthesia Intra-op New Bag 11/04/2012 1:38 PM EDT mL lidocaine (XYLOCAINE) 4 % external solution PRN, Starting on Sat11/04/12 at 1348, Until Sat11/04/12 at 1513, Anesthesia Intra-op Given 11/04/2012 1:48 PM EDT 4 m Ls midazolam (VERSED) injection PRN, Starting on Sat11/04/12 at 1338, Until Sat11/04/12 at 1513, Sleep, Anesthesia Intra-op, Routine Given 11/04/2012 1:38 PM EDT 2 mg neostigmine (PROSTIGMINE) injection PRN, Starting on Sat11/04/12 at 1501, Until Sat11/04/12 at 1513, Anesthesia Intra-op, Routine Given 11/04/2012 3:01 PM EDT 3 mg ondansetron (ZOFRAN) injection PRN, Starting on Sat11/04/12 at 1452, Until Sat11/04/12 at 1513, Nausea, Anesthesia Intra-op, Routine Given 11/04/2012 2:52 PM EDT 8 mg propofol (DIPRIVAN) 10 mg/mL bolus injection (Anesthesia) PRN, Starting on Sat11/04/12 at 1338, Until Sat11/04/12 at 1513, Anesthesia Intra-op Given 11/04/2012 1:38 PM EDT 200 mg rocuronium (ZEMURON) injection PRN, Starting on Sat11/04/12 at 1338, Until Sat11/04/12 at 1513, Anesthesia Intra-op, Routine Given 11/04/2012 2:33 PM EDT 10 mg Given 11/04/2012 1:38 PM EDT 50 mg documented in this encounter Care Teams Information Systems Director Relationship Specialty Start Date End Date Mary Alice Cage APRN PCP - General 10/12/11 11/12/18 documented as of this encounter
--- OUTSIDE RECORDS SUMMARY | 2024-03-17 18:34 | XMS_ITS | Encounter Summary ---
Author Organization [facility] [place] [address] Care Team Providers Care Director Of Corporate Responsibility Name Role Phone NilesMary Alice Rajendra ROY Primary Care Provider [phone] Encounter Details Date Type Department Care Team (Late st Contact Info) Description 10/23/2012 External Results XRay at [address] [place] [address] Malia Vidal APRN [facility] [place] [address] Social History Tobacco Use Types Packs/Day Years [...] Procedure Name Priority Date/Time Associated Diagnosis Comments ULTRASOUND SCAN (SCAN) Routine 12/26/2011 CT SCAN (SCAN) Routine 09/11/2011 documented in this encounter Results * Scan Doc: Ultrasound (12/26/2011) Anatomical Region Laterality Modality Other Malia Vidal APRN MEDIA MGR SCAN EXT O RDR/RSLT * Scan Doc: CT Scan (09/11/2011) Anatomical Region Laterality Modality Other Axel Figueroa DO MEDIA MGR SCAN EXT O RDR/RSLT documented in this encounter Visit Diagnoses Not on filedocumented in this encounter Care Teams Director Of Corporate Responsibility Relationship Specialty Start Date End Date Mary Alice Cage APRN PCP - General 10/12/11 11/12/18 documented as of this encounter
--- OUTSIDE RECORDS SUMMARY | 2024-03-17 18:34 | XMS_ITS | Encounter Summary ---
Author Organization [facility]ly [facility] [place] [address] Care Team Providers Care Warp Dyeing Tender Name Role Phone IbervilleMary Alice davis Rajendra ROY Primary Care Provider [phone] Reason for Visit * Reason Onset Date Comments Medication Refill 07/05/2013 Encounter Details Date Type Department Care Team (Late st Contact Info) Description 07/05/2013 Refill [place] [address] Letty Vidal APRN [facility] [place] [address] Social History Tobacco Use Types Packs/Day Years [...] Telephone Encounter - Debbie Skinner Jeancarlos - 07/06/2013 8:26 AM ESTFrom: Poppy Mclaughlin To: Letty Vidal APRN Sent: 07/05/2013 1:31 PM EST Subject: Medication Renewal Request Original authorizing provider: MANUELA CHAVEZ would like a refill of the following medications: diphenoxylate-atropine (LOMOTIL) 2.5-0.025 mg per tablet [LETTY VIDAL, MANUELA] Preferred pharmacy: [facility] [address] [place] [address] Comment: documented in this encounter Plan of Treatment Not on file documented as of this encounter Visit Diagnoses Not on filedocumented in this encounter Care Teams Warp Dyeing Tender Relationship Specialty Start Date End Date Mary Alice Cage APRN PCP - General 10/12/11 11/12/18 documented as of this encounter
--- OUTSIDE RECORDS SUMMARY | 2024-03-17 18:34 | XMS_ITS | Encounter Summary ---
Author Organization [facility] [address] Care Team Providers Care Potato Chip Packaging Machine Operator Name Role Phone Mary Alice Cage APRN Primary Care Provider Reason for Visit * Reason Onset Date Comments Medication Refill 01/28/2013 Encounter Details Date Type Department Care Team (Late st Contact Info) Description 01/28/2013 Refill [place] [address] Malia Vidal ENERGY CONTROL OFFICER [facility] DR [place] [address] Social History Tobacco Use Types Packs/Day Years [...] on filedocumented in this encounter Care Teams Potato Chip Packaging Machine Operator Relationship Specialty Start Date End Date Mary Alice Cage APRN PCP - General 10/12/11 11/12/18 documented as of this encounter
--- OUTSIDE RECORDS SUMMARY | 2024-03-17 18:34 | XMS_ITS | Encounter Summary ---
[place] [address] Care Team Providers Care Paper Mill Superintendent Name Role Phone Mary Alice aCge APRN Primary Care Provider [phone] Reason for Visit * Reason Onset Date Comments Pre Procedure Call 08/21/2013 D/C NSAID's, ASA, and Fish oil Encounter Details Date Type Department Care Team (Late st Contact Info) Description 08/21/2013 Telephone [place] [address] Colleen Wright LPN Pre Procedure Call (D/C NSAID's, ASA, and Fish oil) Social History Tobacco Use Types Packs/Day Years [...] Telephone Encounter - Colleen Valenzuela LPN - 08/28/2013 10:27 AM EST Return call from Ms. Mclaughlin. Reviewed medication/allergy list. Patient voiced writing on her calendar to stop all NSAIDS on 09/01/13 and will stop on that day. Allergic to eggs therefore she hasn't had her flu shot. * Telephone Encounter - Colleen Valenzuela LPN - 08/28/2013 10:15 AM EST 10:00 AM 08/28/13 Left 2nd message. * Telephone Encounter - Colleen Valenzuela LPN - 08/21/2013 9:21 AM EST Scheduled for surgery 09/08/13 ACDF Bilat C5-7 Called to advise patient to stop all NSAID's, ASA, and Fish Oil 7-10 days prior to scheduled surgery. Left VM message for patient to call the [facility] nursing office at his first opportunity; advising that the need for a return call was time sensitive. [facility] nursing office hours and phone number provided. documented in this encounter Plan of Treatment Not on file documented as of this encounter Visit Diagnoses Not on filedocumented in this encounter Care Teams Paper Mill Superintendent Relationship Specialty Start Date End Date Mary Alice Cage APRN PCP - General 10/12/11 11/12/18 documented as of this encounter
--- OUTSIDE RECORDS SUMMARY | 2024-03-17 18:34 | XMS_ITS | Encounter Summary ---
Author Organization [facility] [place] [address] Care Team Providers Care Talent Development Consultant Name Role Phone OvertonMary Alice davis MANUELA Primary Care Provider [phone] Encounter Details Date Type Department Care Team (Late st Contact Info) Description 11/27/2012 Orders [place] [address] Catrachita Cervantes MD [facility] [place] [address] Social History Tobacco Use Types Packs/Day Years [...] Associated Diagnosis Comments FILM LIBRARY STORAGE ONLY PAIN CLINIC C ARM Routine 11/27/2012 7:30 AM EDT documented in this encounter Results * Film Library-storage only pain clinic C-arm (11/27/2012 7:30 AM EDT) 11/27/2012 7:30 AM EDT Narrative [facility] - 04/01/2014 6:09 PM EDT This is a non-reportable exam. Procedure Note Sachin Alvarez - 04/01/2014 This is a non-reportable exam. Catrachita Cervantes MD [facility] FILM LIBRARY ORD ERABLES [facility] [address] [place] [address] documented in this encounter Visit Diagnoses Not on filedocumented in this encounter Care Teams Talent Development Consultant Relationship Specialty Start Date End Date Mary Alice Cage APRN PCP - General 10/12/11 11/12/18 documented as of this encounter
--- OUTSIDE RECORDS SUMMARY | 2024-03-17 18:34 | XMS_ITS | Encounter Summary ---
Author Organization [facility] [place] [address] Care Team Providers Care Painter Name Role Phone Mray Alice Cage APRN Primary Care Provider [phone] Encounter Details Date Type Department Care Team (Late st Contact Info) Description 12/10/2012 External Results [place] [address] Marshall Montgomery MD [facility] [place] [address] Social History Tobacco Use Types Packs/Day Years [...] Date/Time Associated Diagnosis Comments EMG SCAN Routine 12/09/2012 documented in this encounter Results * Scan Doc: EMG (12/09/2012) Marshall Montgomery MD MEDIA MGR SCAN EXT O RDR/RSLT documented in this encounter Visit Diagnoses Not on filedocumented in this encounter Care Teams Painter Relationship Specialty Start Date End Date Mary Alice Cage APRN PCP - General 10/12/11 11/12/18 documented as of this encounter
--- OUTSIDE RECORDS SUMMARY | 2024-03-17 18:34 | XMS_ITS | Encounter Summary ---
Author Organization [facility] Address [facility] [place] [address] Care Team Providers Care Research Project Coordinator Name Role Phone Mary Alice Cage APRN Primary Care Provider Encounter Details Date Type Department Care Team (Latest Contact Info) Description 11/03/2012 12:04 PM EDT - 11/03/2012 11:59 PM EDT Hospital Encounter XRay at [address] [place] [address] Herniated nucleus pulposus, C6-7 Right, with degenderative [...] XR CERVICAL SPINE FLEXION EXTENSION ONLY Routine 11/03/2012 12:12 PM EDT Herniated nucleus pulposus, C6-7 Right, with degenderative [...] myelopathy documented in this encounter Care Teams Research Project Coordinator Relationship Specialty Start Date End Date Mary Alice Cage APRN PCP - General 10/12/11 11/12/18 documented as of this encounter
--- OUTSIDE RECORDS SUMMARY | 2024-03-17 18:34 | XMS_ITS | Encounter Summary ---
Author Organization [facility] [place] [address] Care Team Providers Care Tool Grinder Name Role Phone Mary Alice Cage MANUELA Primary Care Provider [phone] Encounter Details Date Type Department Care Team (Latest Contact Info) Description 08/18/2013 10:11 AM [facility] - 08/18/2013 11:59 PM [facility] [place] [address] Rios Acuna MD [facility] [place] [address] Herniated nucleus pulposus, C6-7 Right, with degenderative [...] hour period. 42 tablet 0 09/09/2013 09/16/2013 acetaminophen (TYLENOL) 500 mg tablet Take 2 tablets by mouth every 8 hours for 7 days. After 7 days, may take Tylenol every 8 hours as needed for pain, DO NOT take more than 3000 mg in a 24 hour period. 42 tablet 0 09/09/2013 09/09/2013 diphenoxylate-atrop ine (LOMOTIL) 2.5-0.025 mg per tablet Take 1 tablet by mouth 4 times daily as needed for Diarrhea. DO NOT restart this unless you are having diarrhea. 120 tablet 5 09/09/2013 09/09/2013 hydromorphone (DILAUDID) 2 mg tablet Take 1-3 [...] Take 5 mg by mouth daily. 08/17/2014 ketorolac (TORADOL) 10 mg tablet Take 10 mg by mouth every 6 hours as needed. 09/09/2013 gabapentin (NEURONTIN) 300 mg capsule Take 300 mg by mouth daily. 11/18/2014 diphenoxylate-atrop ine (LOMOTIL) 2.5-0.025 mg per tablet [...] Procedure Name Priority Date/Time Associated Diagnosis Comments URINALYSIS WITH REFLEX CULTURE Routine 08/18/2013 10:47 AM EST Herniated nucleus pulposus, C6-7 Right, with degenderative changes URINE CULTURE Routine 08/18/2013 10:47 AM EST Herniated nucleus pulposus, C6-7 Right, with degenderative changes DIFFERENTIAL, AUTOMATED Routine 08/18/2013 10:20 AM EST PROTHROMBIN TIME Routine 08/18/2013 10:2 0 AM EST Herniated nucleus pulposus, C6-7 Right, with degenderative changes CBC (WITH DIFF) Routine 08/18/2013 10:20 AM EST Herniated nucleus pulposus, C6-7 Right, with degenderative changes BASIC METABOLIC PANEL Routine 08/18/2013 10:20 AM EST Herniated nucleus pulposus, C6-7 Right, with degenderative changes TYPE AND SCREEN, SDP (FUTURE SURGERY, [facility] SAME DAY PROGRAM ONLY) Routine 08/18/2013 10:20 AM EST Herniated nucleus pulposus, C6-7 Right, with degenderative changes ABO/RH TYPING Routine 08/18/2013 10:20 AM EST Herniated nucleus pulposus, C6-7 ANTIBODY SCREEN Routine 08/18/2013 10:20 AM EST Herniated nucleus pulposus, C6-7 documented in this encounter Results * Urine culture Clean Catch Urine (08/18/2013 10:47 AM EST) Urine Culture ? Patient Name: ODETTEPOPPY ? Ordered By: LISA RIOS Del Cid ? MR#: [id number] ?LOC: ??4V ? /Sex: ??1960 (52 years), ? Female ? PROCEDURE: Urine Culture ?SOURCE: U CC ? COLLECTED: 08/18/2013 10:47 ? STARTED: 08/18/2013 11:11 ? FINAL REPORT ? Final Report ? Verified: 08:32 ? 1,000-9,000 cfu/ml mixed mucosal caryn ? 1,000-9,000 cfu/ml Gram Negative organisms ? Note: Multiple bacterial morphotypes present. Suggest appropriate ? recollection with timely delivery to ? the laboratory, if clinically significant. ? PRELIMINARY REPORT ? Preliminary Report ? Verified: 07:53 ? Culture in progress. ? CERNER MILLENNIUM Urine specimen obtained by clean catch procedure (specimen) 08/18/2013 10:47 AM EST 08/18/2013 11:11 AM EST Narrative Resulting Agency Comment Spec In Lab Rios Acuna MD MICROBIOLOGY - GENER AL ORDERABLES [facility] AMANDAEN[facility]ORMER[facility] * Urinalysis with microscopic (08/18/2013 10:47 AM EST) Glucose, Urine Dipstick Negative Negative mg/dL CERNER MILLENNIUM Protein, Urine Dipstick Negative mg/dL CERNER MILLENNIUM Bilirubin, Urine Dipstick Negative Negative mg/dL CERNER MILLENNIUM Comment: Clinical correlation required for positive Urine Bilirubin results as false positive may occur with some drugs and drug related products. If a false positive is suspected a serum total bilirubin should be considered if clinically indicated. Urobilinogen, Urine Dipstick Normal mg/dL CERNER MILLENNIUM pH, Urn (dipstick) 5.5 5.0 - 8.0 CERNER MILLENNIUM Blood, Urine Dipstick Negative mg/dL CERNER MILLENNIUM Ketone, Urine Dipstick Negative mg/dL CERNER MILLENNIUM Nitrite, Urine Dipstick Negative CERNER MILLENNIUM Leukocytes, Urine Dipstick Negative mcL CERNER MILLENNIUM Appearance, Urine Dipstick Clear Clear CERNER MILLENNIUM Specific [place] Urine Automated 1.007 1.002 - 1.030 CERNER MILLENNIUM Color, Urine Dipstick Light Yellow Yellow CERNER MILLENNIUM RBC, Urine Not Present 0 - 4 CERNER MILLENNIUM WBC, Urine <1 0 - 5 /HPF CERNER MILLENNIUM Squamous Epithelial Cells, Urine 1 <=4 /HPF CERNER MILLENNIUM Urine specimen (specimen) 08/18/2013 10:47 AM EST 08/18/2013 10:55 AM EST Narrative Resulting Agency Comment Spec In Lab Rios Acuna MD URINE ORDERABLES CERNER MILLENNIUM * Differential, Automated (08/18/2013 10:20 AM EST) Neutrophil % 66.2 34.0 - 71.0 % CERNER MILLENNIUM Neutrophil Absolute 6.06 1.50 - 6.30 x10(3)/mcL CERNER MILLENNIUM Lymph % 27.7 19.0 - 53.0 % CERNER MILLENNIUM Lymphocytes Abs 2.5 1.0 - 3.6 x10(3)/mcL CERNER MILLENNIUM Monocyte % 4.2 4.0 - 13.0 % CERNER MILLENNIUM Monocyte Abs 0.4 0.2 - 1.0 x10(3)/mcL CERNER MILLENNIUM Eos % 1.5 0.0 - 7.0 % CERNER MILLENNIUM Eosinophils Abs 0.1 0.0 - 0.5 x10(3)/mcL CERNER MILLENNIUM Basophil % 0.3 0.0 - 2.0 % CERNER MILLENNIUM Baso Absolute 0.0 0.0 - 0.2 x10(3)/mcL CERNER MILLENNIUM Immature Gran % 0.10 0.00 - 0.66 % CERBANNER MILLENNIUM Comment: Immature granulocytes(IG's)percentage and absolute count will include metamyelocytes, myelocytes, and promyelocytes. Blood smears from CBCs yielding IG's will be scanned manually for concordance. If this scan disagrees with the automated IG or if promyelocytes are noted, a manual differential will be performed. Immature Gran Absolute 0.01 0.00 - 0.05 x10(3)/mcL [facility] MILLENNIUM Blood specimen (specimen) 08/18/2013 10:20 AM EST 08/18/2013 10:30 AM EST Rios Acuna MD HEMATOLOGY ORDERABLE S Performing Organization Address [facility] Phone Number [facility] * Prothrombin Time (08/18/2013 10:20 AM EST) Prothrombin Time 12.2 12.0 - 15.0 sec [facility] Comment: [facility] Transfusion Committee Guidelines: INR less than 2.0, PTT less than OR equal to 43.5 seconds, or Fibrinogen greater than or equal to 100 mg/dl indicate adequate procoagulant activity for hemostasis in patients without underlying bleeding disorders. International Normalization Ratio 0.9 0.9 - 1.1 [facility] Blood specimen (specimen) 08/18/2013 10:20 AM EST 08/18/2013 10:30 AM EST Narrative Resulting Agency Comment Spec In Lab Rios Acuna MD HEMATOLOGY ORDERABLE S Performing Organization Address [facility] de Phone Number [facility] * Basic Metabolic Panel (non-fasting) (08/18/2013 10:20 AM EST) Glucose 110 60 - 199 mg/dL [facility] Comment:Diabetes: >=200 mg/d L plus symptoms Blood Urea Nitrogen 11 8 - 18 mg/dL [facility] Creatinine 0.94 0.70 - 1.20 mg/dL [facility] Comment: Please note that the pediatric reference intervals supplied above were not validated at [facility]. Results from pediatric patients should be interpreted in conjunction to the patient's age, height and muscle mass. Sodium 139 135 - 145 mmol/L CERNER MILLENNIUM Potassium 4.5 3.5 - 5.0 mmol/L CERNER MILLENNIUM Comment: Please note: ??Patients with WBC >100,000 may have falsely elevated Potassium levels. ??For accurate Potassium quantification in these patients send serum separator tube (gold top) for subsequent determinations. ??Contact the Clinical Chemistry Laboratory if there are any questions. Chloride 103 98 - 107 mmol/L CERNER MILLENNIUM Carbon Dioxide 24 22 - 31 mmol/L CERNER MILLENNIUM Anion Gap 12 5 - 15 mmol/L CERNER MILLENNIUM Calcium [...] internet browser. http://www.nkdep.nih.gov/lab-evaluation.shtml http://www.kidney.org/professionals/ Blood specimen (specimen) 08/18/2013 10:20 AM EST 08/18/2013 10:30 AM EST Narrative Resulting Agency Comment Spec In Lab Rios Acuna MD CHEMISTRY ORDERABLES CERNER AMANDAENNIUM * (ABNORMAL) CBC (with Diff) (08/18/2013 10:20 AM EST) White Blood Cell 9.2 4.0 - 10.0 x10(3)/mc L CERNER MILLENNIUM Red Blood Cell 4.03 3.93 - 5.22 x10(6)/mc L CERNER MILLENNIUM Hemoglobin 12.8 11.2 - 15.7 gm/dL CERNER MILLENNIUM Hematocrit 38.6 34.0 - 45.0 % CERNER MILLENNIUM Mean Cell Volume 95.8(H) 79.0 - 94.0 fL CERNER MILLENNIUM Mean Cell Hemoglobin 31.8 26.6 - 32.2 pg CERNER MILLENNIUM Mean Cell Hemoglobin Concentration 33.2 32.0 - 36.5 gm/dL CERNER MILLENNIUM Platelet 313 145 - 370 x10(3)/mc L CERNER MILLENNIUM RDW Standard Deviation 49.9(H) 35.0 - 46.0 fL CERNER MILLENNIUM RDW coefficient of variation 14.2 10.9 - 14.4 % CERNER MILLENNIUM Mean Platelet Volume 9.7 9.0 - 12.0 fL CERNER MILLENNIUM Blood specimen (specimen) 08/18/2013 10:20 AM EST 08/18/2013 10:30 AM EST Narrative Resulting Agency Comment Spec In Lab Rios Acuna MD HEMATOLOGY ORDERABLE S Performing Organization Address City/[facility] Co de Phone Number VIKTOR PATELENNIUM * Antibody screen (08/18/2013 10:20 AM EST) Ab Screen Interp Negative CERJORGE PATELENNIUM Expires at [id number] on: [id number] CERJORGE PATELENNIUM Blood specimen (specimen) 08/18/2013 10:20 AM EST 08/18/2013 10:31 AM EST Narrative Resulting Agency Comment Spec In Lab Rios Acuna MD BLOOD BANK LAB ORDER DAMARIS Performing Organization Address City/[facility] Co de Phone Number VIKTOR SAHAIUM * ABO/Rh Typing (08/18/2013 10:20 AM EST) ABORH Type A Pos CERNER MILLENNIUM Blood specimen (specimen) 08/18/2013 10:20 AM EST 08/18/2013 10:31 AM EST Narrative Resulting Agency Comment Spec In Lab Rios Acuna MD BLOOD BANK LAB ORDER DAMARIS Performing Organization Address City/[facility] Co de Phone Number VIKTOR SAHAIUM documented in this encounter Visit Diagnoses Diagnosis Herniated nucleus pulposus, C6-7 Right, with degenderative changes Displacement of cervical intervertebral disc without myelopathy documented in this encounter Care Teams Tool Grinder Relationship Specialty Start Date End Date Mary Alice Cage APRN PCP - General 10/12/11 11/12/18 documented as of this encounter
--- OUTSIDE RECORDS SUMMARY | 2024-03-17 18:34 | XMS_ITS | Encounter Summary ---
[place] [address] Care Team Providers Care Renewals Manager Name Role Phone Mary Alice Cage MANUELA Primary Care Provider [phone] Reason for Visit * Reason Comments Back Pain Right Arm Pain Encounter Details Date Type Department Care Team (Latest Contact Info) Description 07/13/2013 9:40 AM EST Office [place] [address] Rios Gonzalez MD [facility] [place] [address] Herniated nucleus pulposus, C6-7 Right, with degenderative [...] of this encounter Progress Notes * Rios Gonzalez MD - 07/13/2013 10:23 AM EST INTERVAL HISTORY: Ms. Pino returns to see me to discuss her treatment options and review her MRI. To review, she is a 52-year-old female who presented with right C6 and C7 radiculopathy in the setting of degenerative changes and foraminal narrowing at C5-C6 and a right-sided disk herniation at C6-C7. She had undergone nerve conduction studies in the past that demonstrated no carpal tunnel syndrome and the neurologist felt her symptoms were consistent with a right C6 and C7 radiculopathy. She was treatedwith medications, therapy, and an epidural steroid injection in the past that did not help. She wants to discuss surgical treatment. MRI from 07/11/2013 was reviewed. This shows degenerative changes throughout the cervical spine that are most pronounced at C5-C6 and C6-C7. At C5-C6, she has a broad-based disk bulge that is most pronounced right paracentrally and is combined with uncovertebral hypertrophy to cause bilateral [id number] foraminal narrowing. At C6-C7, the large disk herniation evident on the prior MRI has been resorbed to some degree, though there is still some residual disk material compressing the exiting C7 root. ASSESSMENT/PLAN: Ms. Pino presents with persistent right C6 and C7 radicular symptoms in the setting of foraminal narrowing at C5-C6, and a smaller but persistent disk herniation on the right at C6-C7. I discussed that her treatment options include continued nonoperative treatment with anti-inflammatory medication, physical therapy, and repeat injections as well as surgery. She feels that this has been going on long enough and she has failed to improve with nonoperative treatment and wants to proceed with surgery. I suggested that her likelihood of improvement following surgerymight be somewhat lower now given the chronic nature of her pain and the fact that the C6-7 disk has partially resorbed, but she wishes to proceed anyway. Surgery in her case would be a C5-C6 and C6-C7 ACDF. This was demonstrated on the spine model. Consent was obtained. Risks were documented on the consent form. I advised her that she had to continue to refrain from nicotine at least until she has radiographic evidence of a solid fusion, likely for a year following surgery. She will have to see her primary care doctor for history and physical. She will need to go to preadmission testing. I told her to stop anti-inflammatories and aspirin at least a week before surgery. documented in this encounter Plan of Treatment Not on file documented as of this encounter Procedures Procedure Name Priority Date/Time Associated Diagnosis Comments ARTHRODESIS, ANT INTERBODY,DECOMPRESSI ON; CERVICAL BELOW C2 Routine 07/13/2013 10:22 AM EST Herniated nucleus pulposus, C6-7 Right, [...] bone graft. Mild spondylosis at C4-C5. Rios Gonzalez MD IMG DX ORDERABLES * Urinalysis with microscopic (08/18/2013 10:47 AM [...] Urine Dipstick Clear Clear CERNER MILLENNIUM Specific [place] Urine Automated 1.007 1.002 - 1.030 CERNER [...] Comment Spec In Lab Rios Gonzalez MD URINE ORDERABLES CERNER MILLENNIUM * Urine culture Clean Catch Urine (08/18/2013 10:47 AM EST) Urine Culture ? Patient Name: POPPY PINO ? Ordered By: RIOS GONZALEZ ? MR#: [id number] ?LOC: ??4V ? /Sex: ??1960 (52 years), ? Female ? PROCEDURE: Urine Culture ?SOURCE: U CC ? COLLECTED: 08/18/2013 10:47 ? STARTED: 08/18/2013 11:11 ? FINAL REPORT ? Final Report ? Verified: 014 08:32 ? 1,000-9,000 cfu/ml mixed mucosal caryn ? 1,000-9,000 cfu/ml Gram Negative organisms ? Note: Multiple bacterial morphotypes present. Suggest appropriate ? recollection with timely delivery to ? the laboratory, if clinically significant. ? PRELIMINARY REPORT ? Preliminary Report ? Verified: 07:53 ? Culture in progress. ? VIKTOR TODD Urine specimen obtained by clean catch procedure (specimen) 08/18/2013 10:47 AM EST 08/18/2013 11:11 AM EST Narrative Resulting Agency Comment Spec In Lab Rios Gonzalez MD MICROBIOLOGY - GENER AL ORDERABLES [facility] * Prothrombin Time (08/18/2013 10:20 AM EST) Prothrombin Time 12.2 12.0 - 15.0 sec VIKTOR PATELLOS [facility] Comment: [facility] Transfusion Committee Guidelines: INR less than 2.0, PTT less than OR equal to 43.5 seconds, or Fibrinogen greater than or equal to 100 mg/dl indicate adequate procoagulant activity for hemostasis in patients without underlying bleeding disorders. International Normalization Ratio 0.9 0.9 - 1.1 VIKTOR TODD Blood specimen (specimen) 08/18/2013 10:20 AM EST 08/18/2013 10:30 AM EST Narrative Resulting Agency Comment Spec In Lab Rios Gonzalez MD [facility]ATOLOGY ORDERABLE S [facility] * Basic Metabolic Panel (non-fasting) (08/18/2013 10:20 AM EST) Glucose 110 60 - 199 mg/dL CERNER MILLENNIUM Comment:Diabetes: >=200 mg/d L plus symptoms Blood Urea Nitrogen 11 8 - 18 mg/dL CERNER MILLENNIUM Creatinine 0.94 0.70 - 1.20 mg/dL CERNER MILLENNIUM Comment: Please note that the pediatric reference intervals supplied above were not validated at [facility]. Results from pediatric patients should be interpreted [...] In Lab Rios Gonzalez MD CHEMISTRY ORDERABLES Performing Organization Address [facility] Co de Phone Number VIKTOR TODD * (ABNORMAL) CBC (with Diff) (08/18/2013 10:20 [...] Comment Spec In Lab Rios Gonzalez MD HEMATOLOGY ORDERABLE S Performing Organization Address [facility] Co de Phone Number VIKTOR TODD documented in this encounter Visit Diagnoses Diagnosis Herniated nucleus pulposus, C6-7 Right, with degenderative changes- Primary Displacement of cervical intervertebral disc without myelopathy Herniated nucleus pulposus, C6-7 Right, with degenderative changes Displacement of cervical intervertebral disc without myelopathy documented in this encounter Care Teams Renewals Manager Relationship Specialty Start Date End Date Mary Alice Cage APRN PCP - General 10/12/11 11/12/18 documented as of this encounter
--- OUTSIDE RECORDS SUMMARY | 2024-03-17 18:34 | XMS_ITS | Encounter Summary ---
Author Organization [facility] Address [facility] [place] [address] Care Team Providers Care Theatre Instructor Name Role Phone Mary Alice Cage APRN Primary Care Provider [phone] Encounter Details Date Type Department Care Team (Latest Contact Info) Description 07/07/2013 9:18 AM EST - 07/07/2013 11:59 PM [facility] Hospital Encounter XRay at [address] [place] [address] Herniated nucleus pulposus, C6-7 Right, with degenderative [...] XR CERVICAL SPINE 1 VIEW Routine 07/07/2013 9:27 AM EST Herniated nucleus pulposus, C6-7 Right, [...] myelopathy documented in this encounter Care Teams Theatre Instructor Relationship Specialty Start Date End Date Mary Alice aCge APRN PCP - General 10/12/11 11/12/18 documented as of this encounter
--- OUTSIDE RECORDS SUMMARY | 2024-03-17 18:34 | XMS_ITS | Encounter Summary ---
[place] [address] Care Team Providers Care Labor Trainer Name Role Phone SterlingMary Alice davis Rajendra ROY Primary Care Provider [phone] Encounter Details Date Type Department Care Team (Late st Contact Info) Description 08/18/2013 10:00 AM EST Clinical [place] [id number] Social History Tobacco Use Types Packs/Day Years [...] Taken Comments Blood Pressure - - Pulse 103 08/18/2013 9:44 AM EST Temperature - - Respiratory Rate - - Oxygen Saturation 99% 08/18/2013 9:44 AM EST Inhaled Oxygen Concentration - - Weight 73.5 kg (162 lb) 08/18/2013 9:44 AM EST Height 154.9 cm (5' 1) 08/18/2013 9:44 AM EST Body Mass Index 30.61 08/18/2013 9:44 AM EST documented in this encounter Progress Notes * Tia Barrera RN - 08/18/2013 10:56 AM EST Pre-anesthesia questionnaire reviewed with patient. No previous issues with anesthesia. Patient also states that she has multiple nodules of the lung and has dyspnea on exertion. Blood pressure has been a bit high recently and patient was put on norvasc. GERD is stable. Pre-op folder reviewed with patient and all questions addressed. Labs to be drawn today. Surgery with Dr. Acuna is scheduled for 09-08-13. Patient given information about Living Will and DPOA. documented in this encounter Plan of Treatment Not on file documented as of this encounter Visit Diagnoses Not on filedocumented in this encounter Care Teams Labor Trainer Relationship Specialty Start Date End Date Mary Alice Cage APRN PCP - General 10/12/11 11/12/18 documented as of this encounter
--- OUTSIDE RECORDS SUMMARY | 2024-03-17 18:35 | XMS_ITS | Encounter Summary ---
[place] [address] Care Team Providers Care Rebeamer Name Role Phone Mary Alice Cage APRN Primary Care Provider [phone] Reason for Visit * Reason Onset Date Comments Other 12/24/2011 Aciphex and Wedg e Encounter Details Date Type Department Care Team (Late st Contact Info) Description 12/24/2011 Telephone [place] [phone] Bhavani Knowles RN Other (Aciphex and Wedge) Social History Tobacco Use Types Packs/Day Years Used Date Smoking Tobacco: Every Day Cigarettes Smokeless Tobacco: Never Sex and Gender Information Value Date Recorded Sex Assigned at Not on file Gender Identity Not on file Sexual Orientation Not on file documented as of this encounter Miscellaneous Notes * Telephone Encounter - Bhavani Knowles RN - 12/24/2011 2:53 PM EDT Patient informed Insurance will not approve Dexilant prescription and must try Aciphex 20 mg once Daily. Patient is agreeable to trying Aciphex. This prescription was ordered and sent to her verifiedpreferred pharmacy. Patient requests prescription for incline pillow (wedge) for insurance coverage. The above information will be sent to Malia Vidal APRN. documented in this encounter Plan of Treatment Not on file documented as of this encounter Visit Diagnoses Not on filedocumented in this encounter Care Teams Rebeamer Relationship Specialty Start Date End Date Mary Alice Cage APRN PCP - General 10/12/11 11/12/18 documented as of this encounter
--- OUTSIDE RECORDS SUMMARY | 2024-03-17 18:35 | XMS_ITS | Encounter Summary ---
[place] [address] Care Team Providers Care Box Brander Name Role Phone DutchessMary Alice davis Rajendra ROY Primary Care Provider [phone] Encounter Details Date Type Department Care Team (Latest Contact Info) Description 02/04/2012 8:05 AM EDT - 02/04/2012 11:59 PM EDT Hospital Encounter [place] [address] Abdominal distention Social History Tobacco Use Types Packs/Day Years Used Date Smoking Tobacco: Every Day Cigarettes Smokeless Tobacco: Never Sex and Gender Information Value Date Recorded Sex Assigned at Not on file Gender Identity Not on file Sexual Orientation Not on file documented as of this encounter Medications at Time of Discharge Medication Sig Dispensed Refills Start Date End Date amitriptyline (ELAVIL) 25 mg tablet Take 25 mg by mouth nightly. 05/26/2012 rabeprazole (ACIPHEX) 20 mg tablet Take 1 tablet by mouth daily. 30 tablet 12 12/24/2011 05/26/2012 dexlansoprazole (DEXILANT) 60 mg CpDM Take 60 mg by mouth daily. 90 capsule 4 12/21/2011 05/26/2012 omeprazole (PRILOSEC) 20 mg capsule Take 20 mg by mouth 2 times daily. 05/26/2012 hydroCODone-acetaminoph en (LORTAB) 7.5-500 mg per tablet Take 1 tablet by mouth every 6 hours as needed. 05/26/2012 acetaminophen (TYLENOL EXTRA STRENGTH) 500 mg tablet Take 1,000 mg by mouth 4 times daily. 09/09/2013 ibuprofen (ADVIL;MOTRIN) 600 mg tablet Take 600 mg by mouth. Takes 2-3 times daily. 09/09/2013 documented as of this encounter Plan of Treatment Not on file documented as of this encounter Procedures Procedure Name Priority Date/Time Associated Diagnosis Comments US ABDOMEN LIMITED Routine 02/04/2012 8: 33 AM EDT Abdominal distention documented in this encounter Results * US abdomen limited (02/04/2012 8:33 AM EDT) Anatomical Region Laterality Modality Abdomen Ultrasound 02/04/2012 8:33 AM EDT Narrative 02/04/2012 8:38 AM EDT ?Abdominal ? (Signed Final 02/04/2012 08:37 am) Patient Info ID: ? [id number] ? : ??[birth year] (51 yrs) Name: ? POPPY PINO ? Visit Date: 02/04/2012 08:29 am Performed By Performed By: ?Lashawn Daniel RDMS Attending: ? Lucretia Calvillo MD Referred By: ? LETTY WORKMAN Service(s) Provided UABDLIM - Abdominal Limited Survey Single ? [id number] Organ or Quadrant - [id number] Indications Chronic Abdominal Distention, ? gallbladder issues Comparison None. ----- Liver ----- Right Lobe Length: ?? 15.7 ?? cm Echogenicity/Echotexture: ?? Normal Comment: ?No focal lesion. Gallbladder Cholelithiasis: ?Several small ??mobile stones Wall Thickness: ?Normal wall thickness Focal Tenderness: ?Negative sonographic Hassan's sign Biliary Tract Intrahepatic Ducts: ?? Normal Extrahepatic Ducts: ?? Normal Common Duct Size: ? 3 ? mm -------- Pancreas -------- Head: ? Normal Tail: ? Limited visualization Body: ? Normal Right Kidney Size (cm) ?L: ??9.9 Cortical Thickness: ?Normal Cortical Echogenicity: ?? Normal Hydronephrosis: ?No sonographic evidence Fluid Collections No ascites in the imaged RUQ. Impression Ultrasound - Abdomen Limited - Summary 1. ??Cholelithiasis. ??No evidence of cholecystitis. 2. ??Limited evaluation of the pancreatic tail. 3. ??Normal visualized pancreatic body/head, liver, and right kidney. I ??viewed the images and agree with the above interpretation. Thank you for allowing us to participate in the care of POPPY PINO. Please do not hesitate to call if you have any questions. ? Lucretia Calvillo MD Electronically Signed Final Report ?? 02/04/2012 08:37 am Procedure Note Lucretia Calvillo MD - 02/04/2012 Abdominal (Signed Final 02/04/2012 08:37 am) Patient Info ID: [id number] : [birth year] (51 yrs) Name: POPPY PINO Visit Date: 02/04/2012 08:29 am Performed By Performed By: Lashawn Daniel RDMS Attending: Lucretia Calvillo MD Referred By: LETTY WORKMAN Service(s) Provided UABDLIM - Abdominal Limited Survey Single 07839 Organ or Quadrant - [id number] Indications Chronic Abdominal Distention, ? gallbladder issues Comparison None. ----- Liver ----- Right Lobe Length: 15.7 cm Echogenicity/Echotexture: Normal Comment: No focal lesion. Gallbladder Cholelithiasis: Several small mobile stones Wall Thickness: Normal wall thickness Focal Tenderness: Negative sonographic Hassan's sign Biliary Tract Intrahepatic Ducts: Normal Extrahepatic Ducts: Normal Common Duct Size: 3 mm -------- Pancreas -------- Head: Normal Tail: Limited visualization Body: Normal Right Kidney Size (cm) L: 9.9 Cortical Thickness: Normal Cortical Echogenicity: Normal Hydronephrosis: No sonographic evidence Fluid Collections No ascites in the imaged RUQ. Impression Ultrasound - Abdomen Limited - Summary 1. Cholelithiasis. No evidence of cholecystitis. 2. Limited evaluation of the pancreatic tail. 3. Normal visualized pancreatic body/head, liver, and right kidney. I viewed the images and agree with the above interpretation. Thank you for allowing us to participate in the care of POPPY PINO. Please do not hesitate to call if you have any questions. Lucretia Calvillo MD Electronically Signed Final Report 02/04/2012 08:37 am Osmany Overton MD IMG US GEN ORDER DAMARIS documented in this encounter Visit Diagnoses Diagnosis Abdominal distention Flatulence, eructation, and gas pain documented in this encounter Care Teams Box Brander Relationship Specialty Start Date End Date Mary Alice Cage, MANUELA PCP - General 10/12/11 11/12/18 documented as of this encounter
--- OUTSIDE RECORDS SUMMARY | 2024-03-17 18:35 | XMS_ITS | Encounter Summary ---
[facility] [address] Care Team Providers Care Radio Operator Name Role Phone [place]. Lawrence[place] Alice davis Rajendra ROY Primary Care Provider [phone] Encounter Details Date Type Department Care Team (Late st Contact Info) Description 09/11/2012 Orders [place] [address] Abel Carlton MD [facility] [place] [address] Social History Tobacco Use Types Packs/Day Years [...] Diagnosis Comments FILM LIBRARY STORAGE ONLY CT ABDOMEN AND PELVIS Routine 09/11/2012 9:30 AM EST documented in this encounter Results * Film Library- Storage only CT abdomen & pelvis (09/11/2012 9:30 AM EST) 09/11/2012 9:30 AM EST Narrative RAD - 03/31/2014 11:06 PM EDT This is a non-reportable exam. Procedure Note Sachin Alvarez - 03/31/2014 This is a non-reportable exam. Abel Carlton MD IMG FILM LIBRARY ORD ERABLES RAD [address] [facility] [place] [address] documented in this encounter Visit Diagnoses Not on filedocumented in this encounter Care Teams Radio Operator Relationship Specialty Start Date End Date Mary Alice Cage APRN PCP - General 10/12/11 11/12/18 documented as of this encounter
--- OUTSIDE RECORDS SUMMARY | 2024-03-17 18:35 | XMS_ITS | Encounter Summary ---
[place] [address] Care Team Providers Care Electronic Warfare Specialist Name Role Phone CallowayMary Alice davis Rajendra ROY Primary Care Provider [phone] Encounter Details Date Type Department Care Team (Latest Contact Info) Description 08/28/2012 8:30 AM EST - 08/28/2012 11:59 PM [facility] Hospital [place] [address] Calcified granuloma of lung (Primary Dx) Social History Tobacco Use Types Packs/Day Years Used Date Smoking Tobacco: Every Day Cigarettes 2 20 Smokeless Tobacco: Never Sex and Gender Information Value Date Recorded Sex Assigned at Not on file Gender Identity Not on file Sexual Orientation Not on file documented as of this encounter Medications at Time of Discharge Medication Sig Dispensed Refills Start Date End Date loratadine (CLARITIN) 10 mg tabletIndications:Mult iple nodules of lung Take 10 mg by mouth daily. pseudoephedrine (SUDAFED) 30 mg tabletIndications:Mult iple nodules [...] times daily. 60 tablet prn 05/28/2012 10/21/2013 nystatin (MYCOSTATIN) 100,000 unit/mL suspension Take by mouth 4 times daily. Take 5ml qid for 7 days swish and swallow 140 mL 0 05/30/2012 10/14/2012 dicyclomine (BENTYL) 10 mg capsule Take 1 capsule by mouth 4 times daily. 120 capsule 5 05/26/2012 12/05/2012 acetaminophen (TYLENOL EXTRA STRENGTH) 500 mg tablet Take 1,000 mg by mouth 4 times daily. 09/09/2013 ibuprofen (ADVIL;MOTRIN) 600 mg tablet Take 600 mg by mouth. Takes 2-3 times daily. 09/09/2013 documented as of this encounter Procedure Notes * Deep Helms MD - 08/30/2012 7:58 AM ESTAssociated Order(s): PFT SCREEN (DLCO,OXIMETRY,SPIROMETRY) Pulmonary Function Test Interpretation (pertinent boxes checked) FEV1 is reduced. FVC is reduced. The FEV1/FVC ratio is normal. Uncorrected single-breath diffusion capacity for CO was [] normal [x] reduced Resting oxyhemoglobin saturation on air was [x] normal [] reduced Impression: Restrictive pattern; suggest lung volumes to confirm if clinically indicated. The reduction in diffusing capacity is nonspecific, and may be seen in a variety of disorders, including pulmonary vascular disease, pulmonary parenchymal disease (i.e. emphysema, ILD), and anemia. Steward/Stewardess Second Class notes during the spirometric procedure state that the patient could not exhale for more than three seconds, but per the graph provided, the pulmonary function test does appear to meet ATS criteria for interpretation (exhalation of six seconds). Clinical correlation is advised. documented in this encounter Plan of Treatment Not on file documented as of this encounter Procedures Procedure Name Priority Date/Time Associated Diagnosis Comments PFT SCREEN (DLCO,OXIMETRY,SPIR OMETRY) Routine 09/01/2012 7:47 AM EST Calcified granuloma of lung documented in this encounter Results * PFT Screen (DLCO,oximetry,spirometry) (09/01/2012 7:47 AM EST) FEV1 liters FVC liters FEV1/FVC % TLC liters DLCO ml/mmHg sec Narrative José Manuel Burns MD - 09/01/2012 7:47 AM EST Deep Helms MD ? 08/30/2012 ??8:01 AM Pulmonary Function Test Interpretation (pertinent boxes checked) FEV1 is reduced. ??FVC is reduced. ??The FEV1/FVC ratio is normal. Uncorrected single-breath diffusion capacity for CO was [] normal [x] reduced Resting oxyhemoglobin saturation on air was [x] normal [] reduced Impression: Restrictive pattern; suggest lung volumes to confirm if clinically indicated. The reduction in diffusing capacity is nonspecific, and may be seen in a variety of disorders, including pulmonary vascular disease, pulmonary parenchymal disease (i.e. emphysema, ILD), and anemia. Steward/Stewardess Second Class notes during the spirometric procedure state that the patient could not exhale for more than three seconds, but per the graph provided, the pulmonary function test does appear to meet ATS criteria for interpretation (exhalation of six seconds). Clinical correlation is advised. Procedure Note Deep Helms MD - 08/30/2012 7:58 AM EST Pulmonary Function Test Interpretation (pertinent boxes checked) FEV1 is reduced. FVC is reduced. The FEV1/FVC ratio is normal. Uncorrected single-breath diffusion capacity for CO was [] normal [x]reduced Resting oxyhemoglobin saturation on air was [x] normal [] reduced Impression: Restrictive pattern; suggest lung volumes to confirm ifclinically indicated. The reduction in diffusing capacity is nonspecific, and may be seen in avariety of disorders, including pulmonary vascular disease, pulmonaryparenchymal disease (i.e. emphysema, ILD), and anemia. Steward/Stewardess Second Class notes during the spirometric procedure state that the patientcould not exhale for more than three seconds, but per the graph provided,the pulmonary function test does appear to meet ATS criteria forinterpretation (exhalation of six seconds). Clinical correlation is advised. Andriy Valdez Jr., MD PROCEDURE/MINOR SURGICAL ORDERABLES documented in this encounter Visit Diagnoses Diagnosis Calcified granuloma of lung- Primary Postinflammatory pulmonary fibrosis documented in this encounter Care Teams Electronic Warfare Specialist Relationship Specialty Start Date End Date Mary Alice Cage APRN PCP - General 10/12/11 11/12/18 documented as of this encounter
--- OUTSIDE RECORDS SUMMARY | 2024-03-17 18:35 | XMS_ITS | Encounter Summary ---
[place] [address] Care Team Providers Care Wardrobe Mistress Name Role Phone Mary Alice Cage APRN Primary Care Provider [phone] Reason for Visit * Reason Onset Date Comments Other 09/26/2012 put in and call pt for referral Encounter Details Date Type Department Care Team (Late st Contact Info) Description 09/26/2012 Telephone [place] [address] Ashanti Talley RN Other (put in and call pt for referral) Social History Tobacco Use Types Packs/Day Years Used Date Smoking Tobacco: Every Day Cigarettes 2 20 Smokeless Tobacco: Never Sex and Gender Information Value Date Recorded Sex Assigned at Not on file Gender Identity Not on file Sexual Orientation Not on file documented as of this encounter Miscellaneous Notes * Telephone Encounter - Ashanti Talley RN - 09/26/2012 9:39 AM EST Tracia please order surgical consult - patient agrees to have Lucia please call her to schedule Thank you ashanti thornton documented in this encounter Plan of Treatment Not on file documented as of this encounter Visit Diagnoses Not on filedocumented in this encounter Care Teams Wardrobe Mistress Relationship Specialty Start Date End Date Mary Alice Cage APRN PCP - General 10/12/11 11/12/18 documented as of this encounter
--- OUTSIDE RECORDS SUMMARY | 2024-03-17 18:35 | XMS_ITS | Encounter Summary ---
[place] [address] Care Team Providers Care Fur Cutter Name Role Phone ChippewaMary Alice davis Rajendra ROY Primary Care Provider [phone] Reason for Visit * Reason Onset Date Comments Other 03/05/2012 aciphex failed a nd wants spasm med? Encounter Details Date Type Department Care Team (Late st Contact Info) Description 03/05/2012 Telephone [place] [address] Ashanti Tlaley RN Other (aciphex failed and wants spasm med?) Social History Tobacco Use Types Packs/Day Years Used Date Smoking Tobacco: Every Day Cigarettes Smokeless Tobacco: Never Sex and Gender Information Value Date Recorded Sex Assigned at Not on file Gender Identity Not on file Sexual Orientation Not on file documented as of this encounter Miscellaneous Notes * Telephone Encounter - Ashanti Talley RN - 03/05/2012 10:22 AM EDT [employer] alllows aciphex, dexilant and nexium covered. in that order. Aciphex failed and now trying dexilant called in. Dx nutcracker esophagus, gerd. aciphex not effective after 2 months - needs new PPI, side effect of Headche with aciphex. Take tylenol - taken off and told to avoid motrin and lortab recently. Eats once a day, fodmap. Needs small bowel follow thru - never got scheduled. Vomits after meals documented in this encounter Plan of Treatment Not on file documented as of this encounter Visit Diagnoses Not on filedocumented in this encounter Care Teams Fur Cutter Relationship Specialty Start Date End Date Mary Alice Cage APRN PCP - General 10/12/11 11/12/18 documented as of this encounter
--- OUTSIDE RECORDS SUMMARY | 2024-03-17 18:35 | XMS_ITS | Encounter Summary ---
[place] [address] Care Team Providers Care Aquacultural Worker Supervisor Name Role Phone Mary Alice Cage APRN Primary Care Provider [phone] Reason for Visit * Reason Onset Date Comments Medication Refill 05/26/2012 Encounter Details Date Type Department Care Team (Late st Contact Info) Description 05/26/2012 Refill [place] [address] Ashanti Talley RN Social History Tobacco Use Types Packs/Day [...] on filedocumented in this encounter Care Teams Aquacultural Worker Supervisor Relationship Specialty Start Date End Date Mary Alice Cage APRN PCP - General 10/12/11 11/12/18 documented as of this encounter
--- OUTSIDE RECORDS SUMMARY | 2024-03-17 18:35 | XMS_ITS | Encounter Summary ---
[place] [address] Care Team Providers Care Oracle Database Consultant Name Role Phone Mary Alice Cage APRN Primary Care Provider [phone] Reason for Visit * Reason Onset Date Comments Medication Refill 07/10/2012 Encounter Details Date Type Department Care Team (Late st Contact Info) Description 07/10/2012 Refill [place] [address] Ashanti Talley RN Social History Tobacco Use [...] on filedocumented in this encounter Care Teams Oracle Database Consultant Relationship Specialty Start Date End Date Mary Alice Cage APRN PCP - General 10/12/11 11/12/18 documented as of this encounter
--- OUTSIDE RECORDS SUMMARY | 2024-03-17 18:35 | XMS_ITS | Encounter Summary ---
[place] [address] Care Team Providers Care Computing Tutor Name Role Phone [place] Alice davis Rajendra ROY Primary Care Provider [phone] Reason for Visit * Reason Onset Date Comments Other 07/10/2012 assess GI Encounter Details Date Type Department Care Team (Late st Contact Info) Description 07/10/2012 Telephone [place] [address] Ashanti Talley RN Other (assess GI) Social History Tobacco Use Types Packs/Day Years Used Date Smoking Tobacco: Every Day Cigarettes Smokeless Tobacco: Never Sex and Gender Information Value Date Recorded Sex Assigned at Not on file Gender Identity Not on file Sexual Orientation Not on file documented as of this encounter Miscellaneous Notes * Telephone Encounter - Ashanti Talley RN - 07/10/2012 9:21 AM EST Returned pts call re bloating, distended abdomen Plan to discuss upon her recall and ask david Dee her plan: 1. Most bothersome symptoms of heartburn with n/v, bloat, distension, stool characteristics, swallowing 2. ? Percent of improvement with bentyl with swallow? Vs slow motility and bloat? Bentyl dose adjustment? 3. Testing is normal, % gerd and fodmap diet achieved, what foods are pronounced in her diet? 4. When is a gastric stimulator used - ask Sepideh Sumner for education 5. What over the counter meds does she use? 6. How active is she? documented in this encounter Plan of Treatment Not on file documented as of this encounter Visit Diagnoses Not on filedocumented in this encounter Care Teams Computing Tutor Relationship Specialty Start Date End Date Mary Alice Cage APRN PCP - General 10/12/11 11/12/18 documented as of this encounter
--- OUTSIDE RECORDS SUMMARY | 2024-03-17 18:35 | XMS_ITS | Encounter Summary ---
[place] [address] Care Team Providers Care Machine Feeder Floorperson Name Role Phone [place] Mary Alice Drew APRN Primary Care Provider [phone] Reason for Visit * Reason Onset Date Comments Other 03/05/2012 begin bentyl,ph testing Encounter Details Date Type Department Care Team (Late st Contact Info) Description 03/05/2012 Telephone [place] [address] Ashanti Talley RN Other (begin bentyl,ph testing) Social History Tobacco Use Types Packs/Day Years Used Date Smoking Tobacco: Every Day Cigarettes Smokeless Tobacco: Never Sex and Gender Information Value Date Recorded Sex Assigned at Not on file Gender Identity Not on file Sexual Orientation Not on file documented as of this encounter Miscellaneous Notes * Telephone Encounter - Ashanti Talley RN - 03/05/2012 11:30 AM EDT Called pt back per Sepideh Guthrie'damir COTTON BROKER: Nutcracker probably cause of discomfort and. will begin antispasmodic Bentyl. Also do ph testing when new ppi begins within a month (she is calling her insurance for the next in the list of preferredafter failing aciphex. Hold SBFT until ph testing, bentyl began. Go to [facility] if bentyl not helpful. documented in this encounter Plan of Treatment Not on file documented as of this encounter Visit Diagnoses Not on filedocumented in this encounter Care Teams Machine Feeder Floorperson Relationship Specialty Start Date End Date Mary Alice Cage APRN PCP - General 10/12/11 11/12/18 documented as of this encounter
--- OUTSIDE RECORDS SUMMARY | 2024-03-17 18:35 | XMS_ITS | Encounter Summary ---
Author Organization [facility] [place] [address] Care Team Providers Care Sewer Contractor Name Role Phone Mary Alice Cage APRN Primary Care Provider [phone] Reason for Visit * Reason Onset Date Comments Medication Refill 08/19/2012 Encounter Details Date Type Department Care Team (Late st Contact Info) Description 08/19/2012 [place] [address] Malia Vidal SAS DEVELOPER ANALYST [facility] DR GASTROENTEROLOGY [place] [address] Social History Tobacco Use Types Packs/Day Years [...] on filedocumented in this encounter Care Teams Sewer Contractor Relationship Specialty Start Date End Date Mary Alice Cage APRN PCP - General 10/12/11 11/12/18 documented as of this encounter
--- OUTSIDE RECORDS SUMMARY | 2024-03-17 18:35 | XMS_ITS | Encounter Summary ---
Author Organization [facility] [place] [address] Care Team Providers Care Superintendent Production Name Role Phone NilesMary Alice Rajendra ROY Primary Care Provider [phone] Reason for Referral * Surgical (Routine) - Closed Specialty Diagnoses / Procedures Referred By Chava alejo Referred To Contact General Surgery Diagnoses Dyspepsia Malia Vidal APRN [facility] [place] [address] Abel Carlton MD [facility] [place] [address] Referral ID Status Reason Start Date Expiration Date V isits Requested Visits Authorized [id number] Closed Consult, Test & Treat 09/29/2012 03/28/2013 1 1 Encounter Details Date Type Department Care Team (Late st Contact Info) Description 09/29/2012 Orders [place] [address] Malia Vidal [facility] [place] [address] Dyspepsia (Primary Dx) Social History Tobacco Use Types Packs/Day Years Used Date Smoking Tobacco: Every Day Cigarettes 2 20 Smokeless Tobacco: Never Sex and Gender Information Value Date Recorded Sex Assigned at Not on file Gender Identity Not on file Sexual Orientation Not on file documented as of this encounter Progress Notes * Malia Vidal RN - 09/29/2012 1:48 PM EST Pt would like to seek surgical opinion, if her sx due to her gallbladder. documented in this encounter Plan of Treatment Scheduled Referrals Name Type Priority Associated Diagnoses Orde r Schedule Referral to General Surgery Outpatient Referral Routine Dyspepsia Ordered: 09/29/2012 documented as of this encounter Visit Diagnoses Diagnosis Dyspepsia- Primary Dyspepsia and other specified disorders of function of stomach documented in this encounter Care Teams Superintendent Production Relationship Specialty Start Date End Date Mary Alice Cage APRN PCP - General 10/12/11 11/12/18 documented as of this encounter
--- OUTSIDE RECORDS SUMMARY | 2024-03-17 18:35 | XMS_ITS | Encounter Summary ---
Author Organization [facility] [place] [address] Care Team Providers Care Game Warden Name Role Phone Mary Alice Cage APRN Primary Care Provider [phone] Reason for Visit * Reason Comments Sinusitis Encounter Details Date Type Department Care Team (Late st Contact Info) Description 08/28/2012 10:45 AM EST Office [place] [address] Samra Goodson APRN [facility] [place] [address] Rhinitis (Primary Dx) Discharge Disposition: Home Social History Tobacco Use Types Packs/Day Years Used Date Smoking Tobacco: Every Day Cigarettes 2 20 Smokeless Tobacco: Never Sex and Gender Information Value Date Recorded Sex Assigned at Not on file Gender Identity Not on file Sexual Orientation Not on file documented as of this encounter Progress Notes * Samra Goodson APRN - 08/28/2012 10:55 AM EST Otolaryngology Outpatient Consultation Note Date of Visit: 08/28/2012 Location of Visit: Otolaryngology Clinic, [facility] Patient: Poppy Del Cid Arnoldo ([id number] ; 1960 Primary Care Provider: Mary Alice Cage APRN Referring Provider: Malia Vidal Reason for Visit: Poppy is a 51 y.o. female with c/o nasal congestion and postnasal drainage for many years seen at the request of Malia Vidal. History of Present Illness: Poppy presents with c/o nasal congestion/and postnasal drainage here for an evaluation. Poppy feels she has nasal congestion that then develops into bronchitis a few times a year. She was last treated with a Z-pack last May. She does have a hx of abdominal distention and is being followed by Malia Vidal for this. She does c/o reflux issues and is taking Dexilant. She does smoke 1 1/2 packs/day x 20 years and is has no plan to quit. She has been evaluated by pulmonary today. Hx of seasonal allergies. No otitis media issues. Past Medical History: Other then above, see list. Past Surgical History: Umbilical hernia repair. Medications: Current Outpatient Prescriptions on File Prior to Visit Medication Sig Dispense Refill ??? loratadine (CLARITIN) 10 mg tablet Take 10 mg by mouth daily. ??? pseudoephedrine (SUDAFED) 30 mg tablet Take 30 mg by mouth every 4 hours as needed. ??? guaiFENesin (ROBITUSSIN) 100 mg/5 mL syrup Take 200 mg by mouth 3 times daily as needed. ??? citalopram (CELEXA) 40 mg tablet Take 1 tablet by mouth daily. 90 tablet 3 ??? diphenoxylate-atropine (LOMOTIL) 2.5-0.025 mg per tablet Take 1 tablet by mouth 4 times daily as needed for Diarrhea. 120 tablet 0 ??? DISCONTD: citalopram (CELEXA) 10 mg tablet Take 2 tablets by mouth daily. 30 tablet 3 ??? dexlansoprazole (DEXILANT) 60 mg CpDM Take 60 mg by mouth 2 times daily. 60 tablet prn ??? nystatin (MYCOSTATIN) 100,000 unit/mL suspension Take by mouth 4 times daily. Take 5ml qid for 7 days swish and swallow 140 mL 0 ??? dicyclomine (BENTYL) 10 mg capsule Take 1 capsule by mouth 4 times daily. 120 capsule 5 ??? acetaminophen (TYLENOL EXTRA STRENGTH) 500 mg tablet Take 1,000 mg by mouth 4 times daily. ??? ibuprofen (ADVIL;MOTRIN) 600 mg tablet Take 600 mg by mouth daily. Allergies: Albuterol and Egg Social History: Poppy Mclaughlin lives [place] [facility] [address],with her . She does smoke 1 1/2 packs/day x 20 years. No alcohol use. Family History: Father is with a hx of COPD/and bone cancer. Mother has a hx of MS. Review of Systems: Pertinent positive findings discussed above. No other findings on review of constitutional, visual, cardiovascular, respiratory, gastrointestinal, genitourinary, musculoskeletal, dermatologic, neurological, psychiatric, endocrine, hematologic or immunologic systems. Physical Examination: Vitals: There were no vitals taken for this visit. General: A pleasant 51 y.o. In no acute distress. Face: Full and symmetric facial movement. No dysmorphic facial features. Eyes: Periocular structures and conjunctiva healthy without lesions. Pupils are equal, round, and reactive to light. Extraocular movement is full and intact. No dysconjugate gaze. No evidence of nystagmus. Ears: Auricles symmetric without lesions. External auditory canals clear. Right tympanic membrane clear. right middle ear well aerated. Left tympanic membrane translucent. left middle ear well aerated. Nose: Patent anteriorly with adequate airflow,mucosa with copious clear mucus. Septum is midline without significant deviation. Inferior turbinates boggy. Mouth: Lips and gingiva pink, moist, without lesions. Dentition in poor repair . Tongue and floor of mouth soft without lesions or masses. Hard palate without lesions. Pharynx: Soft palate without lesions. Uvula is intact without evidence of submucus cleft palate. Oropharynx symmetric. Neck: Soft, supple, without significant lymphadenopathy. Thyroid gland without masses or asymmetry.Trachea midline without deviation. Lungs: Clear to auscultation bilaterally without wheezes. Heart: Regular rate and rhythm without murmur. Extremities: Warm, well-perfused, mobile, and sensate. Lymphatic: Negative for additional peripheral lymphadenopathy or lymphedema. Neurologic: Cranial nerves II-XII intact and symmetric. Procedure - Flexible Fiberoptic Laryngoscopy: Topical anesthetic applied to the nasal cavity. Patient tolerated the procedure well without complication. Findings: Nasal Cavity: Nasal congestion with no polyps noted. Nasopharynx: Copious amounts of clear mucus, no masses noted Oropharynx: Copious amount of clear mucus. Larynx: Vocal cords mobile and symmetric. Arytenoid folds with minimal edema/and erythema. No specific masses or lesions. Hypopharynx: Unremarkable. Impression: 1)Nasal rhinitis with hx of GERD. 2)Nicotine abuse Recommendations: I have asked Poppy to use a nasal saline rinse with Flonase. Continue with the Loratadine. She was also offered ATrovent nasal spray to use prn. I encouraged her to stop smoking butpadmini is not interested at this time. I will see her back in 2 months for a recheck or sooner if needed. Samra WORKMAN [place], [place] [address] Office documented in this encounter Plan of Treatment Not on file documented as of this encounter Visit Diagnoses Diagnosis Rhinitis- Primary Chronic rhinitis documented in this encounter Care Teams Game Warden Relationship Specialty Start Date End Date Mary Alice Caeg APRN PCP - General 10/12/11 11/12/18 documented as of this encounter
--- OUTSIDE RECORDS SUMMARY | 2024-03-17 18:35 | XMS_ITS | Encounter Summary ---
[facility] [address] Care Team Providers Care Turfgrass Technician Name Role Phone Mary Alice Cage APRN Primary Care Provider [phone] Reason for Visit * Reason Onset Date Comments Other 04/16/2012 SBFT Encounter Details Date Type Department Care Team (Late st Contact Info) Description 04/16/2012 Tele[place] [address] Bhavani Knowles RN Other (SBFT) Social History Tobacco Use Types Packs/Day Years Used Date Smoking Tobacco: Every Day Cigarettes Smokeless Tobacco: Never Sex and Gender Information Value Date Recorded Sex Assigned at Not on file Gender Identity Not on file Sexual Orientation Not on file documented as of this encounter Miscellaneous Notes * Telephone Encounter - Bhavani Knowles RN - 04/16/2012 4:45 PM EDT Received faxed SBFT results from [facility]. A copy of the results and letter to be sent to patient to her mailing address. documented in this encounter Plan of Treatment Not on file documented as of this encounter Visit Diagnoses Not on filedocumented in this encounter Care Teams Turfgrass Technician Relationship Specialty Start Date End Date Mary Alice Cage APRN PCP - General 10/12/11 11/12/18 documented as of this encounter
--- OUTSIDE RECORDS SUMMARY | 2024-03-17 18:35 | XMS_ITS | Encounter Summary ---
Author Organization [facility] [address] Care Team Providers Care Knobber Name Role Phone Mary Alice Cage APRN Primary Care Provider [phone] Encounter Details Date Type Department Care Team (Late st Contact Info) Description 03/12/2012 Orders [place] [address] Malia Vidal APRN [facility] [address] [place] [address] Social History Tobacco Use Types Packs/Day Years [...] on filedocumented in this encounter Care Teams Knobber Relationship Specialty Start Date End Date Mary Alice Cage APRN PCP - General 10/12/11 11/12/18 documented as of this encounter
--- OUTSIDE RECORDS SUMMARY | 2024-03-17 18:35 | XMS_ITS | Encounter Summary ---
Author Organization [facility] [place] [address] Care Team Providers Care Manager Statistical Name Role Phone Mary Alice Cage APRN Primary Care Provider [phone] Reason for Visit * Reason Onset Date Comments Other 07/10/2012 pt calls Encounter Details Date Type Department Care Team (Late st Contact Info) Description 07/10/2012 Telephone [place] [address] Malia Vidal OFFICE AUTOMATION TECHNICIAN [facility] [place] [address] Other (pt calls) Social History Tobacco Use Types Packs/Day Years Used Date Smoking Tobacco: Every Day Cigarettes Smokeless Tobacco: Never Sex and Gender Information Value Date Recorded Sex Assigned at Not on file Gender Identity Not on file Sexual Orientation Not on file documented as of this encounter Miscellaneous Notes * Telephone Encounter - Ashanti Talley RN - 07/10/2012 3:03 PM EST error documented in this encounter Plan of Treatment Not on file documented as of this encounter Visit Diagnoses Not on filedocumented in this encounter Care Teams Manager Statistical Relationship Specialty Start Date End Date Mary Alice Cage APRN PCP - General 10/12/11 11/12/18 documented as of this encounter
--- OUTSIDE RECORDS SUMMARY | 2024-03-17 18:35 | XMS_ITS | Encounter Summary ---
Author Organization [facility] [place] [address] Care Team Providers Care Human Services Professional Name Role Phone CatoosaMary Alice davis MANUELA Primary Care Provider [phone] Encounter Details Date Type Department Care Team (Late st Contact Info) Description 12/27/2011 7:00 AM EDT Follow-[place] [address] Malia Vidal APRN [facility] DR GASTROENTER[place] [address] Abdominal pain, other specified site; GERD (gastroesophageal reflux disease) Discharge Disposition: Home Social History Tobacco Use Types Packs/Day Years Used Date Smoking Tobacco: Every Day Cigarettes Smokeless Tobacco: Never Sex and Gender Information Value Date Recorded Sex Assigned at Not on file Gender Identity Not on file Sexual Orientation Not on file documented as of this encounter Progress Notes * Young, Instructor, RN - 12/27/2011 7:41 AM EDT Pt is here for f/u regarding recent testing. Gastric emptying scan normal. Pt had abdominal u/s at [facility], normal. Pt had ttg, at [facility], will need to obtain. Per pt test was negative. Upper endoscopy: [facility], overall normal Abdominal/pelvic CT: [facility], normal Colonoscopy: [facility], normal Pt reports frequent belching, regurgitation. Little heartburn. Recently began Aciphex 20mg qd. Slowpassage of food, at times hang up distally. No regurgitation of the bolus. No n/v, chest pain, ent concerns. Eating very little. Mostly small frequent meals, soft foods. Early satiety. Post-prandially bloat and significant distention. Pt shows me today a distended, hard abdomen. She is uncomfortable, abdominal pain. She has stopped narcotics and advil. Bowels are regular, per day, formed. No blood. At times does not feel empty. Breakfast: coffee, with milk Lunch: cheese stick, slice of meat Supper: potato, veggie, meat Snacks: banana, grapes, strawberries Fluids: water Plan: 1. Abdominal distention: ?dysmotility, ?bacterial overgrowth, ?food intolerance. Fodmap diet. Smallbowel follow through. Hydrogen breath test. 2. Gerd: Aciphex 20mg qd, 30 minutes before breakfast. 3. F/u with pt once results received. documented in this encounter Plan of Treatment Not on file documented as of this encounter Visit Diagnoses Diagnosis Abdominal pain, other specified site GERD (gastroesophageal reflux disease) Esophageal reflux documented in this encounter Care Teams Human Services Professional Relationship Specialty Start Date End Date Mary Alice Cage APRN PCP - General 10/12/11 11/12/18 documented as of this encounter
--- OUTSIDE RECORDS SUMMARY | 2024-03-17 18:35 | XMS_ITS | Encounter Summary ---
[place] [address] Care Team Providers Care Toll Mechanic Name Role Phone BacaMary Alice davis MANUELA Primary Care Provider [phone] Reason for Visit * Reason Onset Date Comments Other 12/27/2011 wedge pillow Encounter Details Date Type Department Care Team (Late st Contact Info) Description 12/27/2011 Telephone [place] [address] Bhavani Knowles RN Other (wedge pillow) Social History Tobacco Use Types Packs/Day Years Used Date Smoking Tobacco: Every Day Cigarettes Smokeless Tobacco: Never Sex and Gender Information Value Date Recorded Sex Assigned at Not on file Gender Identity Not on file Sexual Orientation Not on file documented as of this encounter Miscellaneous Notes * Telephone Encounter - Bhavani Knowles RN - 12/27/2011 9:48 AM EDT Called [employer] at [phone] to order a wedge pillow for the patient. [employer] apprenticeship training representative states the pillow will not be covered by insurance and they cost $35. Also, they come in 7, 10 or 12 sizes. Called patient regarding her request for a prescription for awedge pillow so she can have insurance coverage for this item. Patient unavailable for discussion. L eft voice mail message with cost of wedge pillow ($35), there is no insurance coverage for this item, stated what pillow sizes are available and GI clinic phone number: [phone]. documented in this encounter Plan of Treatment Not on file documented as of this encounter Visit Diagnoses Not on filedocumented in this encounter Care Teams Toll Mechanic Relationship Specialty Start Date End Date Mary Alice Cage APRN PCP - General 10/12/11 11/12/18 documented as of this encounter
--- OUTSIDE RECORDS SUMMARY | 2024-03-17 18:35 | XMS_ITS | Encounter Summary ---
[place] [address] Care Team Providers Care Buttermaker Helper Name Role Phone BlountMary Alice davis Rajendra ROY Primary Care Provider [phone] Encounter Details Date Type Department Care Team (Latest Contact Info) Description 10/14/2012 3:21 PM EST - 10/14/2012 11:59 PM EST Hospital En[place] [address] Multiple nodules of lung (Primary Dx) Social History Tobacco [...] Sig Dispensed Refills Start Date End Date ASCORBATE CALCIUM (VITAMIN C ORAL) Take 1 tablet by mouth daily. loratadine (CLARITIN) 10 mg tabletIndications:Mult iple nodules of lung Take 10 mg by mouth daily. VITAMIN B COMPLEX ORAL Take 1 tablet [...] Notes * Andriy Valdez Jr., MD - 10/14/2012 4:59 PM ESTAssociated Order(s): LUNG VOLUMES; PFT MOUTH PRESSURES Pulmonary Function Testing Mouth pressures are reduced. Lung volumes reveal an elevated RV/TLC ratio, with reduced TLC and SVC. Results may be seen in air trapping or with neuromuscular weakness. Oxygen saturation is normal. Andriy Valdez MD Pulmonary Medicine documented in this encounter Plan of Treatment Not on file documented as of this encounter Procedures Procedure Name Priority Date/Time Associated Diagnosis Comments PFT MOUTH PRESSURES Routine 10/14/2012 5 :02 PM EST Multiple nodules of lung LUNG VOLUMES Routine 10/14/2012 5:02 PM EST Multiple nodules of lung documented in this encounter Results * Mouth Pressures (10/14/2012 5:02 PM EST) Narrative Andriy Valdez Jr., MD - 10/14/2012 5:02 PM EST Andriy Valdez Jr., MD ? 10/14/2012 ??5:02 PM Pulmonary Function Testing Mouth pressures are reduced. Lung volumes reveal an elevated RV/TLC ratio, with reduced TLC and SVC. ??Results may be seen in air trapping or with neuromuscular weakness. Oxygen saturation is normal. Andriy Valdez MD Pulmonary Medicine Procedure Note Andriy Valdez Jr., MD - 10/14/2012 4:59 PM EST Pulmonary Function Testing Mouth pressures are reduced. Lung volumes reveal an elevated RV/TLC ratio, with reduced TLC and SVC.Results may be seen in air trapping or with neuromuscular weakness. Oxygen saturation is normal. Andriy Valdez MD Pulmonary Medicine Osmany Overton MD PROCEDURE/MINOR DONA GICAL ORDERABLES * Lung Volumes (10/14/2012 5:02 PM EST) Narrative Andriy Valdez Jr., MD - 10/14/2012 5:02 PM EST Andriy Valdez Jr., MD ? 10/14/2012 ??5:02 PM Pulmonary Function Testing Mouth pressures are reduced. Lung volumes reveal an elevated RV/TLC ratio, with reduced TLC and SVC. ??Results may be seen in air trapping or with neuromuscular weakness. Oxygen saturation is normal. Andriy Valdez MD Pulmonary Medicine Procedure Note Andriy Valdez Jr., MD - 10/14/2012 4:59 PM EST Pulmonary Function Testing Mouth pressures are reduced. Lung volumes reveal an elevated RV/TLC ratio, with reduced TLC and SVC.Results may be seen in air trapping or with neuromuscular weakness. Oxygen saturation is normal. Andriy Valdez MD Pulmonary Medicine Osmany Overton MD PROCEDURE/MINOR DONA GICAL ORDERABLES documented in this encounter Visit Diagnoses Diagnosis Multiple nodules of lung- Primary Other nonspecific abnormal finding of lung field documented in this encounter Care Teams Buttermaker Helper Relationship Specialty Start Date End Date Mary Alice Cage APRN PCP - General 10/12/11 11/12/18 documented as of this encounter
--- OUTSIDE RECORDS SUMMARY | 2024-03-17 18:35 | XMS_ITS | Encounter Summary ---
[place] [address] Care Team Providers Care Assistant Professor Of Geography Name Role Phone Mary Alice Cage APRN Primary Care Provider [phone] Encounter Details Date Type Department Care Team (Late st Contact Info) Description 04/16/2012 Telephone [place] [address] Bhavani Knowles RN Social History Tobacco Use Types Packs/Day Years Used Date Smoking Tobacco: Every Day Cigarettes Smokeless Tobacco: Never Sex and Gender Information Value Date Recorded Sex Assigned at Not on file Gender Identity Not on file Sexual Orientation Not on file documented as of this encounter Miscellaneous Notes * Telephone Encounter - Bhavani Knowles RN - 04/16/2012 2:34 PM EDT Return call to patient who questions whether her SBFT results completed at a local hospital in [facility] were sent to [facility]. Patient unavailable for discussion. Left voice mail message with GI clinic phone number: [phone]. Note: according to [facility], no results for an SBFT have been received. documented in this encounter Plan of Treatment Not on file documented as of this encounter Visit Diagnoses Not on filedocumented in this encounter Care Teams Assistant Professor Of Geography Relationship Specialty Start Date End Date Mary Alice Cage APRN PCP - General 10/12/11 11/12/18 documented as of this encounter
--- OUTSIDE RECORDS SUMMARY | 2024-03-17 18:35 | XMS_ITS | Encounter Summary ---
[place] [address] Care Team Providers Care Food And Beverage Assistant Manager Name Role Phone Mary Alice Cage APRN Primary Care Provider Reason for Visit * Reason Onset Date Comments Other 01/03/2012 fatty liver Encounter Details Date Type Department Care Team (Late st Contact Info) Description 01/03/2012 Telephone [place] [address] Bhavani Knowles RN Other (fatty liver) Social History Tobacco Use Types Packs/Day Years Used Date Smoking Tobacco: Every Day Cigarettes Smokeless Tobacco: Never Sex and Gender Information Value Date Recorded Sex Assigned at Not on file Gender Identity Not on file Sexual Orientation Not on file documented as of this encounter Miscellaneous Notes * Telephone Encounter - Bhavani Knowles RN - 01/03/2012 8:36 AM EDT Called patient per Malia Vidal APRN to inform her of the followin. Patient has a fatty liver 2. For this, follow up with your primary care provider 3. Exercise and diet are a remedy for fatty liver Patient unavailable for discussion. Left voice mail message with the above information on ID'd phone and with GI clinic phone number: [phone]. documented in this encounter Plan of Treatment Not on file documented as of this encounter Visit Diagnoses Not on filedocumented in this encounter Care Teams Food And Beverage Assistant Manager Relationship Specialty Start Date End Date Mary Alice Cage APRN PCP - General 10/12/11 11/12/18 documented as of this encounter
--- OUTSIDE RECORDS SUMMARY | 2024-03-17 18:35 | XMS_ITS | Encounter Summary ---
Author Organization [facility] [address] Care Team Providers Care Upkeep Mechanic Name Role Phone Mary Alice Cage APRN Primary Care Provider [phone] Reason for Visit * Reason Onset Date Comments Medication Refill 05/28/2012 Encounter Details Date Type Department Care Team (Late st Contact Info) Description 05/28/2012 Refill [place] [address] Malia Vidal ROLL FILLER [facility] DR [place] [address] Social History Tobacco Use Types Packs/Day Years [...] on filedocumented in this encounter Care Teams Upkeep Mechanic Relationship Specialty Start Date End Date Mary Alice Cage APRN PCP - General 10/12/11 11/12/18 documented as of this encounter
--- OUTSIDE RECORDS SUMMARY | 2024-03-17 18:35 | XMS_ITS | Encounter Summary ---
Author Organization [facility] [place] [address] Care Team Providers Care Consulting Practice Director Name Role Phone Mary Alice Cage MANUELA Primary Care Provider [phone] Encounter Details Date Type Department Care Team (Late st Contact Info) Description 07/22/2012 Orders [place] [address] José Manuel Irwin MD [facility] [place] [address] Social History Tobacco Use Types Packs/Day Years [...] FILM LIBRARY STORAGE ONLY DX CHEST Routine 07/22/2012 8:51 AM EST documented in this encounter Results * Film Library- Storage only DX Chest (07/22/2012 8:51 AM EST) Anatomical Region Laterality Modality Other 07/22/2012 8:51 AM EST Narrative 07/29/2014 8:56 AM EST This is a Non-reportable exam Procedure Note NELLA, UNSIGNED REPORT - 07/29/2014 This is a Non-reportable exam José Manuel Irwin [place] [facility] [place] ORD ERABLES documented in this encounter Visit Diagnoses Not on filedocumented in this encounter Care Teams Consulting Practice Director Relationship Specialty Start Date End Date Mary Alice Cage APRN PCP - General 10/12/11 11/12/18 documented as of this encounter
--- OUTSIDE RECORDS SUMMARY | 2024-03-17 18:35 | XMS_ITS | Encounter Summary ---
[place] [address] Care Team Providers Care Tunnel Kiln Firer Name Role Phone BonnevilleMary Alice davis Rajendra ROY Primary Care Provider [phone] Reason for Visit * Reason Onset Date Comments Prior Authorization 05/28/2012 Dexilant Encounter Details Date Type Department Care Team (Late st Contact Info) Description 05/28/2012 Telephone [place] [phone] Debbie Skinner weight yardage checker (Dexilant) Social History Tobacco Use Types Packs/Day Years Used Date Smoking Tobacco: Every Day Cigarettes Smokeless Tobacco: Never Sex and Gender Information Value Date Recorded Sex Assigned at Not on file Gender Identity Not on file Sexual Orientation Not on file documented as of this encounter Miscellaneous Notes * Telephone Encounter - Debbie Skinner CMA - 05/28/2012 10:21 AM EDT Medication: Dexilant Dosage: 60 mg Frequency & Route: take 1 by mouth BID Insurance & Phone #: [employer] [phone] ID #: [id number] Trialed (dosage, frequency): Prilosec, Aciphex Notes: No PA needed. Informed pharmacy documented in this encounter Plan of Treatment Not on file documented as of this encounter Visit Diagnoses Not on filedocumented in this encounter Care Teams Tunnel Kiln Firer Relationship Specialty Start Date End Date Mary Alice Cage APRN PCP - General 10/12/11 11/12/18 documented as of this encounter
--- OUTSIDE RECORDS SUMMARY | 2024-03-17 18:35 | XMS_ITS | Encounter Summary ---
Author Organization [facility] [place] [address] Care Team Providers Care Crusher Feeder Name Role Phone EdgarMary Alice davis Rajendra ROY Primary Care Provider [phone] Reason for Visit * Reason Comments Referral Encounter Details Date Type Department Care Team (Late st Contact Info) Description 08/28/2012 9:00 AM EST Office [place] [address] Osmany Holloway MD [facility] [place] [address] Multiple nodules of lung (Primary Dx) Discharge Disposition: Home Social History [...] Sign Reading Time Taken Comments Blood Pressure 142/90 08/28/2012 9:16 AM EST Pulse 87 08/28/2012 9:16 AM EST Temperature - - Respiratory Rate 20 08/28/2012 9:16 AM EST Oxygen Saturation 98% 08/28/2012 9:16 AM EST Inhaled Oxygen Concentration - - Weight 72.6 kg (160 lb) 08/28/2012 9:16 AM EST Height 157.5 cm (5' 2) 08/28/2012 9:16 AM EST Body Mass Index 29.26 08/28/2012 9:16 AM EST documented in this encounter Progress Notes * Osmany Holloway MD - 08/28/2012 10:36 AM EST PULMONARY MEDICINE CONSULTATION Consulted by Mary Alice Cage APRN to evaluate this patient for multiple pulmonary nodules. I have personally interviewed and examined the patient on 08/28/2012, and reviewed the patient's radiographicstudies and laboratory data. HPI: In brief, Poppy Mclaughlin is a 51 y.o. female referred for evaluation of an abnormal chest x-ray and CT scan. She complains of frequent cough, mild dyspnea, but no hemoptysis, or significant constitutional symptoms. She does state that she gets bronchitis usually 1-2 times a year, and she is acurrent smoker (1-2 packs per day for as long as she can remember. She has lived most of her life in [place] though she did visit [place] when she was a child, though she doesn't remember beingill. She also complains of chronic abdominal pain, but the source of this has never been revealed. She has a history of gastroesophageal reflux, and he is on acid suppression. PAST MEDICAL HISTORY: Patient Active Problem List Diagnoses Code ??? Abdominal distention 787.3 ??? Multiple nodules of lung 793.19 MEDICATIONS: Outpatient Prescriptions Marked as Taking for the 08/28/12 encounter (Office Visit) with Osmany Holloway MD Medication Sig Dispense Refill ??? loratadine (CLARITIN) [...] 2 times daily. 60 tablet prn ??? dicyclomine (BENTYL) 10 mg capsule Take 1 capsule by mouth 4 times daily. 120 capsule 5 ??? acetaminophen (TYLENOL EXTRA STRENGTH) 500 mg tablet Take 1,000 mg by mouth 4 times daily. ??? ibuprofen (ADVIL;MOTRIN) 600 mg tablet Take 600 mg by mouth daily. ALLERGIES: Albuterol and Egg FAMILY HISTORY: Family history is remarkable for a father who at age 57 of emphysema, but he also had heart disease and diabetes. Mother is alive at 68 and she has MS, sleep apnea, and COPD. SOCIAL HISTORY: History Social History ??? Marital Status: Spouse Name: N/A Number of Children: N/A ??? Years of Education: N/A Occupational History ??? Not on file. Social History Main Topics ??? Smoking status: Current Everyday Smoker Types: Cigarettes ??? Smokeless tobacco: Never Used ??? Alcohol Use: Not on file ??? Drug Use: Not on file ??? Sexually Active: Not on file Other Topics Concern ??? Not on file Social History Narrative ??? No narrative on file she is now working at present. She grew up in [place], and has never lived outside of [place] other than the visit to [place] as indicated. She denies alcohol. She has one dog, one cat, no birds. REVIEW OF SYSTEMS: ( ) Constitutional: No fatigue, malaise, loss of appetite; no weight loss ( ) Head: No headache ( ) Eyes: No visual changes ( ) Ears: No hearing change, no pain ( ) Nose: No discharge, bleeding ( ) Throat: No pain (x) Chest: Cough and shortness of breath. (x GI: + pain, + heartburn ( ) Sleep Disturbance: N/A (x) Musculoskeletal: multiple joint pains and stiffness ( ) Neurologic: No weakness, numbness (x) The ROS was otherwise negative. PHYSICAL EXAM Last value Range last 24 hrs Temperature Heart Rate Heart Rate: 87 Heart Rate: [87] Blood Pressure BP: 142/90 mmHg BP: (142)/(90) Respiratory Rate Resp: 20 Resp: [20] SpO2 SpO2: 98 % SpO2: [98 %] WDWN 51 y.o. female in NAD. HEENT-NC/AT; unremarkable Neck-supple without masses or, nodes Chest-clear lung will bilaterally Heart-Normal rate and rhythm, without murmers, gallops, or rubs. Abdomen-benign without organomegaly or tenderness Extremities-no cyanosis, clubbing, or edema Skin-no rashes or lesions Musculoskeletal-no joint swelling, tenderness, redness or deformities Neurologic-Nonfocal, without weakness or sensory deficits Lymphatics-unremarkable I have personally reviewed the PFTs, and my interpretation is as follows: vital capacity of 2.16 L (65% of predicted), FEV1 of 1.59 L (60% of predicted), FEV1/FVC of 73%. She has a diffusing capacityof 57% of predicted. These studies are indicative of moderate restrictive lung disease. I have personally reviewed the radiographic studies and my interpretation is as follows: Numerous bilateral 2-3 mm nodules throughout both lung will, many of which are calcified but many of which are not. No significant adenopathy. No other parenchymal abnormalities. IMPRESSION: In summary, this is a 51 y.o. female with a very complex set of abnormalities, which are difficult to ascribe to a single diagnosis. Clearly the fact that many of these nodules are calcified would indicate that the radiographic abnormalities are long-standing, and though possibly could be due to histoplasmosis, this would seem pretty unlikely given the fact that she was a child when she visited [place], may the nodules are not calcified, and she has no calcified adenopathy. Furthermore, this would not explain her restriction on her pulmonary function studies. Another possibilityis occult sarcoidosis, which can percent in just about any manner, but again would appear to be chronic based upon calcification of some of the nodules, but nevertheless I will send off an YAYO level and sedimentation rate. I would like to get a set of lung volumes as well as mouth pressures to try and understand why she is restricted to the degree she has, but I don't expect there to be very revealing given the fact that her diffusing capacity is as low as it is. I will send her for an overnight oximetry as well and pursue pulmonary hypertension as a possible etiology of her diffusing abnormality if it is abnormal. I would like to see her back shortly after these labs and the additional pulmonary function studies to make a decision about the next step in her workup. documented in this encounter Plan of Treatment Not on file documented as of this encounter Procedures Procedure Name Priority Date/Time Associated Diagnosis Comments SEDIMENTATION RATE Routine 08/28/2012 12 :20 PM EST Multiple nodules of lung ANGIOTENSIN CONVERTING ENZYME Routine 08/28/2012 12:20 PM EST Multiple nodules of lung AMYLASE Routine 08/28/2012 12:20 PM EST Multiple nodules of lung documented [...] Overton MD PROCEDURE/MINOR DONA GICAL ORDERABLES * Amylase (08/28/2012 12:20 PM EST) Amylase 70 28 - 100 unit/L [facility] Blood specimen (specimen) 08/28/2012 12:20 PM EST 08/28/2012 12:30 PM EST Narrative Resulting Agency Comment Spec In Lab Osmany Overton MD CHEMISTRY ORDERABLE S Performing Organization Address [facility] Co de Phone Number [facility] * Sedimentation rate (08/28/2012 12:20 PM EST) Sedimentation Rate Automated 16 0 - 20 mm/hr [facility] Blood specimen (specimen) 08/28/2012 12:20 PM EST 08/28/2012 12:30 PM EST Narrative Resulting Agency Comment Spec In Lab Osmany Overton MD HEMATOLOGY ORDERABL ES Performing Organization Address [facility] Phone Number [facility] * Angiotensin Converting Enzyme (08/28/2012 12:20 PM EST) Yayo (DECEMBER) 31 8 - 53 unit/L [facility] Comment: Test Performed by: [place] [address] Ultimate Hoops Trainer: Keena Vogel, Ph.D. Blood specimen (specimen) 08/28/2012 12:20 PM EST 08/28/2012 1:30 PM EST Narrative Resulting Agency Comment Spec In Lab Osmany Overton MD LAB SEND OUT ORDERA BLES Performing Organization Address [facility] Co de Phone Number [facility] documented in this encounter Visit Diagnoses Diagnosis Multiple nodules of lung- Primary Other nonspecific abnormal finding of lung field Multiple nodules of lung- Primary Other nonspecific abnormal finding of lung field documented in this encounter Care Teams Crusher Feeder Relationship Specialty Start Date End Date Mary Alice Cage APRN PCP - General 10/12/11 11/12/18 documented as of this encounter
--- OUTSIDE RECORDS SUMMARY | 2024-03-17 18:35 | XMS_ITS | Encounter Summary ---
Author Organization [facility] [place] [address] Care Team Providers Care Breaker Mechanic Name Role Phone WillMary Alice davis [facility] Primary Care Provider [phone] Reason for Referral * Consultation (Routine) - Duplicate Referral Specialty Diagnoses / Procedures Referred By Chava t Referred To Contact Diagnoses FODMAP Diet Malia Vidal, [facility] [place] [address] Beth Blum LD [facility] [place] [address] Referral ID Status Reason Start Date Expiration Date Visits Requested Visits Authorized [id number] Duplicate Referral Consult Only 08/19/2012 02/15/2013 1 1 * Consultation (Routine) - Closed Specialty Diagnoses / Procedures Referred By Chava t Referred To Contact Otolaryngology Diagnoses Post-nasal drainage Malia Vidal [facility] [place] [address] [facility] Otolaryngology [address] [place] [phone] Referral ID Status Reason Start Date Expiration Date V isits Requested Visits Authorized [id number] Closed Consult, Test & Treat 08/19/2012 02/15/2013 1 1 * Consultation (Routine) - Closed Specialty Diagnoses / Procedures Referred By Contact Referred To Contact Pulmonary Disease / Pulmonology Diagnoses Abnormal chest CT Malia Vidal APRN [facility] [place] [address] [facility] Pulmonology [address] [place] [address] Referral ID Status Reason Start Date Expiration Date V isits Requested Visits Authorized [id number] Closed Consult, Test & Treat 08/19/2012 02/15/2013 1 1 * Consultation (Routine) - Closed Specialty Diagnoses / Procedures Referred By Contac t Referred To Contact Diagnoses FODMAP Diet OMalia Pena [facility] [place] [address] Beth Blum [facility] [place] [address] Referral ID Status Reason Start Date Expiration Date V isits Requested Visits Authorized [id number] Closed Consult, Test & Treat 08/19/2012 02/15/2013 1 1 Encounter Details Date Type Department Care Team (Late st Contact Info) Description 08/19/2012 Orders [place] [phone] Malia Vidal [facility] [place] [address] Dyspepsia; Post-nasal drainage; Abnormal chest CT Social History Tobacco Use Types Packs/Day Years Used Date Smoking Tobacco: Every Day Cigarettes Smokeless Tobacco: Never Sex and Gender Information Value Date Recorded Sex Assigned at Not on file Gender Identity Not on file Sexual Orientation Not on file documented as of this encounter Progress Notes * Malia Vidal RN - 08/19/2012 2:21 PM EST Pt stops in the clinic today. No appointment. Recent increase in celexa has helped her dyspeptic sxsome. Bentyl helps the nutcracker sx, no further choking. Pt continues with bloat, distention and intermittent lower abdominal pain. Normal egd, colo, abdominal u/s, CT, sbft, gastric emptying scan, hbt. Has not completed her hida scan, although low yield. 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 Lomotil prn for intermittent diarrhea. Pt has frequent colds, post nasal. Recent abnormal chest CT. Plan: 1. Refer to cattle and wheat farmer. Will mail pt food logs prior [address] Starkey 3. Celexa 40mg qd 4. Bentyl as directed 5. Lomotil prn. 6. Refer to ent and pulmonary. 7. Vitamin C and B complex. documented in this encounter Plan of Treatment Scheduled Referrals Name Type Priority Associated Diagnoses Order Schedule Referral to Gastroenterology Outpatient Referral Routine Dyspepsia Ordered: 08/19/2012 Referral to Pulmonology Outpatient Referral Routine Abnormal chest CT Ordered: 08/19/2012 Referral to ENT Outpatient Referral Routine Post-nasal drainage Ordered: 08/19/2012 Referral to Gastroenterology Outpatient Referral Routine Dyspepsia Ordered: 08/19/2012 documented as of this encounter Visit Diagnoses Diagnosis Dyspepsia Dyspepsia and other specified disorders of function of stomach Post-nasal drainage Unspecified sinusitis (chronic) Abnormal chest CT Nonspecific (abnormal) findings on radiological and other examination of other intrathoracic organs documented in this encounter Care Teams Breaker Mechanic Relationship Specialty Start Date End Date Mary Alice Cage APRN PCP - General 10/12/11 11/12/18 documented as of this encounter
--- OUTSIDE RECORDS SUMMARY | 2024-03-17 18:35 | XMS_ITS | Encounter Summary ---
Author Organization [facility] [address] Care Team Providers Care Central Supply Supervisor Name Role Phone Mary Alice Cage APRN Primary Care Provider [phone] Encounter Details Date Type Department Care Team (Late st Contact Info) Description 03/05/2012 Orders [place] [address] Malia Vidal APRN [facility] [place] [address] GI disease (Primary Dx) Social History Tobacco Use Types Packs/Day Years Used Date Smoking Tobacco: Every Day Cigarettes Smokeless Tobacco: Never Sex and Gender Information Value Date Recorded Sex Assigned at Not on file Gender Identity Not on file Sexual Orientation Not on file documented as of this encounter Plan of Treatment Not on file documented as of this encounter Visit Diagnoses Diagnosis GI disease- Primary Unspecified disorder of intestine documented in this encounter Care Teams Central Supply Supervisor Relationship Specialty Start Date End Date Mary Alice Cage APRN PCP - General 10/12/11 11/12/18 documented as of this encounter
--- OUTSIDE RECORDS SUMMARY | 2024-03-17 18:35 | XMS_ITS | Encounter Summary ---
[place] [address] Care Team Providers Care Field Radio Technician Name Role Phone IbervilleMary Alice davis MANUELA Primary Care Provider [phone] Reason for Visit * Reason Onset Date Comments Results 02/25/2012 ultrasound, mano metry Encounter Details Date Type Department Care Team (Late st Contact Info) Description 02/25/2012 Telephone [place] [address] Bhavani Knowles RN Results (ultrasound, manometry) Social History Tobacco Use Types Packs/Day Years Used Date Smoking Tobacco: Every Day Cigarettes Smokeless Tobacco: Never Sex and Gender Information Value Date Recorded Sex Assigned at Not on file Gender Identity Not on file Sexual Orientation Not on file documented as of this encounter Miscellaneous Notes * Telephone Encounter - Bhavani Knowles RN - 02/25/2012 4:02 PM EDT Called patient to report esophageal manometry results and ABD u/s results. 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 It was explained to thepatient that this condition involves the muscles of your esophagus yumiko too powerfully. Patient indicates understanding. She was also informed of her ABD u/s results (procedure completed on 02/04/12): showed gallstones, otherwise normal. Patient reports no change in her GI symptoms. She is requesting a remedy for her nutcracker esophagus. The above information was sent to Malia Vidal APRN documented in this encounter Plan of Treatment Not on file documented as of this encounter Visit Diagnoses Not on filedocumented in this encounter Care Teams Field Radio Technician Relationship Specialty Start Date End Date Mary Alice Cage APRN PCP - General 10/12/11 11/12/18 documented as of this encounter
--- OUTSIDE RECORDS SUMMARY | 2024-03-17 18:35 | XMS_ITS | Encounter Summary ---
[place] [address] Care Team Providers Care Family And Divorce Legal Assistant Name Role Phone Mary Alice Cage APRN Primary Care Provider [phone] Reason for Visit * Reason Onset Date Comments Other 02/05/2012 headaches Encounter Details Date Type Department Care Team (Late st Contact Info) Description 02/05/2012 Telephone [place] [address] Bhavani Knowles RN Other (headaches) Social History Tobacco Use Types Packs/Day Years Used Date Smoking Tobacco: Every Day Cigarettes Smokeless Tobacco: Never Sex and Gender Information Value Date Recorded Sex Assigned at Not on file Gender Identity Not on file Sexual Orientation Not on file documented as of this encounter Miscellaneous Notes * Telephone Encounter - Bhavani Knowles RN - 02/05/2012 10:02 AM EDT Return call to patient regarding frequent headaches. She wonders if this is caused by Amitiza. Patient unavailable for discussion. Left voice mail message on ID'd phone stating her question will be sent to Malia Vidal APRN. GI clinic phone number: [phone] given. documented in this encounter Plan of Treatment Not on file documented as of this encounter Visit Diagnoses Not on filedocumented in this encounter Care Teams Family And Divorce Legal Assistant Relationship Specialty Start Date End Date Mary Alice Cage APRN PCP - General 10/12/11 11/12/18 documented as of this encounter
--- OUTSIDE RECORDS SUMMARY | 2024-03-17 18:35 | XMS_ITS | Encounter Summary ---
[place] [address] Care Team Providers Care Disability Manager Name Role Phone Mary Alice Cage APRN Primary Care Provider [phone] Reason for Visit * Reason Onset Date Comments Medication Refill 03/05/2012 Encounter Details Date Type Department Care Team (Late st Contact Info) Description 03/05/2012 Refill [place] [address] Ashanti Talley RN Social History Tobacco Use [...] on filedocumented in this encounter Care Teams Disability Manager Relationship Specialty Start Date End Date Mary Alice Cage APRN PCP - General 10/12/11 11/12/18 documented as of this encounter
--- OUTSIDE RECORDS SUMMARY | 2024-03-17 18:35 | XMS_ITS | Encounter Summary ---
Author Organization [facility]ly [facility] Address [facility] [place] [address] Care Team Providers Care Tableau Analyst Name Role Phone CoffeeMary Alice davis Rajendra ROY Primary Care Provider [phone] Encounter Details Date Type Department Care Team (Late st Contact Info) Description 05/26/2012 1:45 PM EDT - 05/26/2012 11:59 PM EDT Hospital Encounter XRay at [address] [place] [address] Bloat Social History Tobacco Use Types Packs/Day Years Used Date Smoking Tobacco: Every Day Cigarettes Smokeless Tobacco: Never Sex and Gender Information Value Date Recorded Sex Assigned at Not on file Gender Identity Not on file Sexual Orientation Not on file documented as of this encounter Medications at Time of Discharge Medication Sig Dispensed Refills Start Date End Date rifaximin (XIFAXAN) 200 mg tablet Take 2 tablets by mouth 3 times daily for 10 days. 60 tablet 0 05/26/2012 06/05/2012 dexlansoprazole (DEXILANT) 60 mg CpDM Take 60 mg by mouth 2 times daily. 30 tablet prn 05/26/2012 05/28/2012 dicyclomine (BENTYL) 10 mg capsule Take 1 capsule by mouth 4 times daily. 120 capsule 5 05/26/2012 12/05/2012 citalopram (CELEXA) 10 mg tablet Take 1 tablet by mouth daily. 30 tablet 3 05/26/2012 06/23/2012 acetaminophen (TYLENOL EXTRA STRENGTH) 500 mg tablet Take 1,000 mg by mouth 4 times daily. 09/09/2013 ibuprofen (ADVIL;MOTRIN) 600 mg tablet Take 600 mg by mouth. Takes 2-3 times daily. 09/09/2013 documented as of this encounter Plan of Treatment Not on file documented as of this encounter Procedures Procedure Name Priority Date/Time Associated Diagnosis Comments XR CHEST PA AND LATERAL Routine 05/26/2012 1:55 PM EDT Bloat documented in this encounter Results * XR chest routine PA & lateral (05/26/2012 1:55 PM EDT) Anatomical Region Laterality Modality Chest N/A Radiographic Martha ging 05/26/2012 1:55 PM EDT Narrative 05/26/2012 3:08 PM EDT Examination CHEST ROUTINE PA+LAT Clinical History ?inflammatory process Comparison None Technique PA and lateral views of the chest. Findings Numerous tiny density sharply marginated pulmonary nodules are seen throughout both lungs. ??The lungs are otherwise clear. ??The cardiomediastinal silhouette, jay, pulmonary vessels, and pleura are unremarkable. ??No significant osseous findings. Impression No active cardiopulmonary pathology seen. ??However, numerous tiny pulmonary nodules appear consistent with granulomata. Question if there are prior radiographs that demonstrate this finding. Question prior travel to or residence in an endemic area. Procedure Note Peyton Meeks MD - 05/26/2012 Examination CHEST ROUTINE PA+LAT Clinical History ?inflammatory process Comparison None Technique PA and lateral views of the chest. Findings Numerous tiny density sharply marginated pulmonary nodules are seenthroughout both lungs. The lungs are otherwise clear. The cardiomediastinalsilhouette, jay, pulmonary vessels, and pleura are unremarkable. No significantosseous findings. Impression No active cardiopulmonary pathology seen. However, numerous tinypulmonary nodules appear consistent with granulomata. Question if there are prior radiographs that demonstrate this finding. Question prior travel to or residence in an endemic area. Justin Starkey MD IMG DX ORDERABLES documented in this encounter Visit Diagnoses Diagnosis Bloat Flatulence, eructation, and gas pain documented in this encounter Care Teams Tableau Analyst Relationship Specialty Start Date End Date Mary Alice Cage APRN PCP - General 10/12/11 11/12/18 documented as of this encounter
--- OUTSIDE RECORDS SUMMARY | 2024-03-17 18:35 | XMS_ITS | Encounter Summary ---
[facility] [address] Care Team Providers Care Rn Case Management Name Role Phone GlennMary Alice davis Rajendra ROY Primary Care Provider [phone] Encounter Details Date Type Department Care Team (Late st Contact Info) Description 12/26/2011 Orders Only [place] [address] Abel Carlton MD [facility] [place] [address] Social History Tobacco Use Types Packs/Day Years [...] Associated Diagnosis Comments FILM LIBRARY STORAGE ONLY ULTRASOUND STUDY Routine 12/26/2011 9:29 AM EDT documented in this encounter Results * Film Library- Storage only Ultrasound Study (12/26/2011 9:29 AM EDT) 12/26/2011 9:29 AM EDT Narrative RAD - 03/31/2014 11:06 PM EDT This is a non-reportable exam. Procedure Note Sachin Alvarez - 08/20/2014 This is a non-reportable exam. Abel Carlton MD IMG FILM LIBRARY ORD ERABLES RAD [address] [facility] ([facility] [place] [address] documented in this encounter Visit Diagnoses Not on filedocumented in this encounter Care Teams Rn Case Management Relationship Specialty Start Date End Date Mary Alice Cage APRN PCP - General 10/12/11 11/12/18 documented as of this encounter
--- OUTSIDE RECORDS SUMMARY | 2024-03-17 18:35 | XMS_ITS | Encounter Summary ---
Author Organization [facility] [place] [address] Care Team Providers Care Ice Guard Skating Rink Name Role Phone BuffaloMary Alice davis MANUELA Primary Care Provider [phone] Reason for Visit * Reason Comments Follow-up Encounter Details Date Type Department Care Team (Late st Contact Info) Description 05/26/2012 1:00 PM EDT [place] [address] Malia Vidal SWAGE [employer]OLSETTER [facility] [place] [address] Bloat (Primary Dx) Discharge Disposition: Home Social History Tobacco Use Types Packs/Day Years Used Date Smoking Tobacco: Every Day Cigarettes Smokeless Tobacco: Never Sex and Gender Information Value Date Recorded Sex Assigned at Not on file Gender Identity Not on file Sexual Orientation Not on file documented as of this encounter Last Filed Vital Signs Vital Sign Reading Time Taken Comments Blood Pressure 156/91 05/26/2012 12:35 PM EDT Pulse 102 05/26/2012 12:35 PM EDT Temperature - - Respiratory Rate - - Oxygen Saturation - - Inhaled Oxygen Concentration - - Weight 75.8 kg (167 lb) 05/26/2012 12:35 PM EDT Height 162.6 cm (5' 4) 05/26/2012 12:35 PM EDT Body Mass Index 28.67 05/26/2012 12:35 PM EDT documented in this encounter Progress Notes * Malia Vidal RN - 05/26/2012 2:34 PM EDT Pt is here for f/u regarding ongoing functional sx. HBT, was not highly correlated for bacterial overgrowth. Clinical correlation recommended. Pt continues with significant amount of bloat, distention, belching and flatulence. I feel horrible about myself. My abdomen is so uncomfortable. Continues with frequent breakthrough of heartburn and especially regurgitation. She notes she is trying to follow the fodmap diet. Occasionally will have n/v. Weight stable. In the last year unremarkable labs, stool studies, egd, colo, emptying study, abdominal u/s, abdominal/pelvic CT, sbft. She has found the bentyl helpful with her swallowing. Easier passage of food. Plan: 1. Sx are functional. Possible bacterial overgrowth: rifaximin 400mg tid x 10 days. 2. ?role of depression/anxiety. D/c elavil. celexa 10mg qd. If sx improve with ssri, would like to d/c bentyl and decrease ppi qd. 3. Continue with bentyl 10mg qid and increase dexilant to 60mg bid. 4. Pt will call with progress. documented in this encounter Plan of Treatment Not on file documented as of this encounter Results * Tissue transglutaminase, IgA (05/26/2012 2:01 PM EDT) TTG IgA Ab <4.0 <=3.9 u/ml [facility] Comment: Result Interpretation: Negative: ?<4 U/mL Weak Positive: ??4-10 U/mL Positive: ?>10 U/mL Blood specimen (specimen) 05/26/2012 2:01 PM EDT 05/27/2012 8:16 AM EDT Narrative Resulting Agency Comment Spec In Lab Justin Starkey MD IMMUNOLOGY ORDERABLE S [facility] * TSH (05/26/2012 2:01 PM EDT) Thyroid Stimulating Hormone 0.87 0.27 - 4.20 mcIU/mL CERNER MILLENNIUM Blood specimen (specimen) 05/26/2012 2:01 PM EDT 05/26/2012 2:08 PM EDT Narrative Resulting Agency Comment Spec In Lab Justin Starkey MD CHEMISTRY ORDERABLES [facility] * Comprehensive metabolic panel (non-fasting) (05/26/2012 2:01 PM EDT) Glucose 99 60 - 199 mg/dL CERNER MILLENNIUM Comment:Diabetes: >=200 mg/d L plus symptoms Blood Urea Nitrogen 12 8 - 18 mg/dL CERNER MILLENNIUM Creatinine 0.82 0.70 - 1.20 mg/dL CERNER MILLENNIUM Comment: Please note that the pediatric reference intervals supplied above were not validated at [facility]. Results from pediatric patients should be interpreted in conjunction to the patient's age, height and muscle mass. Sodium 138 135 - 145 mmol/L CERNER MILLENNIUM Potassium 3.7 3.5 - 5.0 mmol/L [facility]ERN[facility] MILLENNIUM Comment: [...] 5 - 15 mmol/L CERNER MILLENNIUM Calcium 9.5 8.5 - 10.5 mg/dL CERNER MILLENNIUM Protein, Total 7.6 6.4 - 8.3 gm/dL CERNER MILLENNIUM Albumin 4.7 3.2 - 5.2 gm/dL CERNER MILLENNIUM Aspartate Aminotransferase 18 0 - 30 unit/L CERNER MILLENNIUM Alanine Aminotransferase 12 0 - 30 unit/L CERNER MILLENNIUM Alkaline Phosphatase 45 40 - 104 unit/L CERNER MILLENNIUM Bilirubin, Total 0.3 0.2 - 1.3 mg/dL CERNER MILLENNIUM Bilirubin, Direct 0.1 0.0 - 0.3 mg/dL CERNER MILLENNIUM Est Glomerular Filtration Rate >60 >=60 CERNER MILLENNIUM Comment: The National Kidney Disease Education Program (NKDEP) has recommended all laboratories report estimated GFR (eGFR) along with plasma creatinine measurements to assist you with recognition of early kidney disease. Caveats: ??Plasma creatinine should be at steady-state (unchanged within the past week). For patients multiply eGFR by 1.2. The MDRD equation was developed using patients between the ages of 18 and 70 years. ?? The MDRD equation has not been validated for patients < 18 years of age and should not be used to assess renal function in the pediatric population. ??The MDRD eGFR equation will also overestimate the true GFR of patients above the age of 70. ??This overestimation is variable but increases with age. At present, NKDEP does NOT recommend using the MDRD equation for drug dosing purposes and pharmacists should continue to use their current dosing methods. In addition, numerical eGFR values greater than 60 ml/min/1.73 square meters should be treated as > 60, and not an exact number due to greater inaccuracies at these higher values. Per NKDEP, they classify normal renal function as any GFR >60ml/min/1.73 square meters; chronic kidney disease when GFR <60, and renal failure when GFR <15. ??This calculation may not be valid for patients with atypical muscle mass (very lean or obese), acute renal failure, and in patients with diabetic kidney disease. References: http://nkdep.nih.gov/resources/NKDEP_Suggestn4Labs_0606_508.pdf http://www.kidney.org/professionals/kls/pdf/faq_gfr.pdf Tae K, Jv NA, Royce AK, Danny TS, Zenaida AD, Jaylene TATA. Relative performance of the MDRD and CKD-EPI equations for estimating glomerular filtration rate among patients with varied clinical presentations. Clin J Am Soc Nephrol;6:1963-72. Blood specimen (specimen) 05/26/2012 2:01 PM EDT 05/26/2012 2:08 PM EDT Narrative Resulting Agency Comment Spec In Lab Justin Starkey MD CHEMISTRY ORDERABLES Performing Organization Address City/[facility]/ZIP Co de Phone Number VIKTOR SAHAIUM * (ABNORMAL) CBC (with Diff) (05/26/2012 2:01 PM EDT) White Blood Cell 9.9 4.0 - 10.0 x10(3)/mc L CERNER MILLENNIUM Red Blood Cell 4.01 3.93 - 5.22 x10(6)/mc L CERNER MILLENNIUM Hemoglobin 12.7 11.2 - 15.7 gm/dL CERNER MILLENNIUM Hematocrit 38.7 34.0 - 45.0 % CERNER MILLENNIUM Mean Cell Volume 96.5(H) 79.0 - 94.0 fL CERNER MILLENNIUM Mean Cell Hemoglobin 31.7 26.6 - 32.2 pg CERNER MILLENNIUM Mean Cell Hemoglobin Concentration 32.8 32.0 - 36.5 gm/dL CERNER MILLENNIUM Platelet 306 145 - 370 x10(3)/mc L CERNER MILLENNIUM RDW Standard Deviation 49.4(H) 35.0 - 46.0 fL CERNER MILLENNIUM RDW coefficient of variation 14.0 10.9 - 14.4 % CERNER MILLENNIUM Mean Platelet Volume 10.0 9.0 - 12.0 fL CERNER MILLENNIUM Blood specimen (specimen) 05/26/2012 2:01 PM EDT 05/26/2012 2:08 PM EDT Narrative Resulting Agency Comment Spec In Lab Justin Starkey MD HEMATOLOGY ORDERABLE S Performing Organization Address City/[facility] Co de Phone Number VIKTOR TODD * XR chest routine PA & lateral [...] area. Justin Starkey MD IMG DX ORDERABLES * XR abdomen flat and upright (05/26/2012 1:54 PM EDT) Anatomical Region Laterality Modality Abdomen N/A Radiographic Martha ging 05/26/2012 1:54 PM EDT Narrative 05/26/2012 6:12 PM EDT Examination ABD FLAT AND UPRIGHT Clinical History ?obstruction ?constipation Comparison None. Technique AP upright and supine abdomen. Findings Normal bowel gas pattern with air in the rectum. There are no dilated loops of bowel or free air. ??There is a small amount of stool scattered throughout the colon. Mild degenerative changes of the lumbar spine. ?? Multiple small rounded calcifications in the bilateral lower lung bases. This was further evaluated on the chest x-ray of the same date. ?? Impression 1. Possible mild constipation. ?? 2. No evidence for obstruction. Film and interpretation reviewed by the attending Procedure Note Angeline Adames MD - 05/26/2012 Examination ABD FLAT AND UPRIGHT Clinical History ?obstruction ?constipation Comparison None. Technique AP upright and supine abdomen. Findings Normal bowel gas pattern with air in the rectum. There are no dilatedloops of bowel or free air. There is a small amount of stool scattered throughoutthe colon. Mild degenerative changes of the lumbar spine. Multiple small rounded calcifications in the bilateral lower lung bases.This was further evaluated on the chest x-ray of the same date. Impression 1. Possible mild constipation. 2. No evidence for obstruction. Film and interpretation reviewed by the attending Justin Starkey MD IMG DX ORDERABLES documented in this encounter Visit Diagnoses Diagnosis Bloat- Primary Flatulence, eructation, and gas pain Bloat Flatulence, eructation, and gas pain Bloat Flatulence, eructation, and gas pain documented in this encounter Care Teams Ice Guard Skating Rink Relationship Specialty Start Date End Date Mary Alice Cage APRN PCP - General 10/12/11 11/12/18 documented as of this encounter
--- OUTSIDE RECORDS SUMMARY | 2024-03-17 18:35 | XMS_ITS | Encounter Summary ---
[place] [address] Care Team Providers Care Rules Examiner Name Role Phone Mary Alice Cage APRN Primary Care Provider [phone] Reason for Visit * Reason Onset Date Comments Other 05/05/2012 Encounter Details Date Type Department Care Team (Late st Contact Info) Description 05/05/2012 Tele[place] [address] Bhavani Knowles RN Other Social History Tobacco Use Types Packs/Day Years Used Date Smoking Tobacco: Every Day Cigarettes Smokeless Tobacco: Never Sex and Gender Information Value Date Recorded Sex Assigned at Not on file Gender Identity Not on file Sexual Orientation Not on file documented as of this encounter Miscellaneous Notes * Telephone Encounter - Bhavani Knowles RN - 05/05/2012 4:15 PM EDT Return call to patient regarding complaints of vomiting. Patient unavailable for discussion. Left voice mail message with GI clinic phone number: [phone]. documented in this encounter Plan of Treatment Not on file documented as of this encounter Visit Diagnoses Not on filedocumented in this encounter Care Teams Rules Examiner Relationship Specialty Start Date End Date Mary Alice Cage APRN PCP - General 10/12/11 11/12/18 documented as of this encounter
--- OUTSIDE RECORDS SUMMARY | 2024-03-17 18:35 | XMS_ITS | Encounter Summary ---
[place] [address] Care Team Providers Care Review Rn Name Role Phone Mary Alice Cage APRN Primary Care Provider [phone] Reason for Visit * Reason Onset Date Comments Other 03/05/2012 calling her insu brionna re PPi Encounter Details Date Type Department Care Team (Late st Contact Info) Description 03/05/2012 Telephone [place] [address] Ashanti Talley RN Other (calling her insurance re PPi) Social History Tobacco Use Types Packs/Day Years Used Date Smoking Tobacco: Every Day Cigarettes Smokeless Tobacco: Never Sex and Gender Information Value Date Recorded Sex Assigned at Not on file Gender Identity Not on file Sexual Orientation Not on file documented as of this encounter Miscellaneous Notes * Telephone Encounter - Ashanti Talley RN - 03/05/2012 10:52 AM EDT Asked pt to contact her insurance for the next PPI they will cover as she failed their 1st preferred aciphex. Await her call. documented in this encounter Plan of Treatment Not on file documented as of this encounter Visit Diagnoses Not on filedocumented in this encounter Care Teams Review Rn Relationship Specialty Start Date End Date Mary Alice Cage APRN PCP - General 10/12/11 11/12/18 documented as of this encounter
--- OUTSIDE RECORDS SUMMARY | 2024-03-17 18:35 | XMS_ITS | Encounter Summary ---
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 METHODS Stationary esophageal manometry was performed with the Natanael Ulien esophageal motility system utilizing the Rhomania software with a 4-channel solid-state motility probe. The transducers are spaced 5 cm apart, and the distal transducer is circumferential, while the proximal three transducers are placed radially above it. Station pull-through technique is utilized to define the lower esophageal sphincter, whose resting tone is determined by the circumferential transducer. Wet swallows are performed in the body of the esophagus with the distal transducer placed 3 and 8 cm above the lower esophageal sphincter zone. The upper esophageal sphincter zone is discerned by station pull-through technique and measured using the circumferential transducer. LES (lower esophageal sphincter) Lower Border: 48.5 cm Upper Border: 45 cm Mid-Inspiratory Resting Pressure: normal at 17 mmHg using the distal circumferential transducer (normal=13.5-34.5 mmHg). Water Swallows On 5 of 5 swallows the LES relaxed appropriately. Mean residual LES resting pressure was normal at 4 mmHg (normal less than or equal to 8 mmHg). BODY OF ESOPHAGUS Water Swallows: 10 Peristaltic: 10 Not Transmitted: 0 Simultaneous: 0 Poorly Propagated: 0 Mean Amplitude of Contraction At 3 cm above the mid portion of the LES: elevated at 252 mmHg (normal = 30 mmHg and above) At 8 cm above the mid portion the LES: elevated at 153 mmHg (normal = 30 mmHg and above) Only 1 of 10 swallows was characterized by normal-amplitude contraction in the distal esophagus (155 mmHg). UES (upper esophageal sphincter) Identified at 20.5 cm and extended to 18.5 cm. UES resting pressure normal at 35 mmHg (normal=30-150 mmHg); relaxation complete. IMPRESSION 1. Normal LES resting pressure. 2. Normal LES relaxation. 3. Normal UES resting pressure. 4. Normal UES relaxation. 5. 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 [address] V: [phone] F: [phone] MICKY/mian CC/EC: ANALI Vidal APRN * Mary Alice Galvan RN - 02/04/2012 9:37 AM EDT Esophageal manometry performed without difficulty and was well tolerated. Discharged from lab without voiced concerns. documented in this encounter Plan of Treatment Not on file documented as of this encounter Visit Diagnoses Diagnosis Nutcracker esophagus- Primary Dyskinesia of esophagus documented in this encounter Care Teams Bench Worker Relationship Specialty Start Date End Date Mary Alice Domingo APRN PCP - General 10/12/11 11/12/18 documented as of this encounter
--- OUTSIDE RECORDS SUMMARY | 2024-03-17 18:35 | XMS_ITS | Encounter Summary ---
Author Organization [facility] [place] [address] Care Team Providers Care Multicraft Operator Name Role Phone Mary Alice Domingo APRN Primary Care Provider [phone] Reason for Visit * Reason Comments Other dyspepsia Encounter Details Date Type Department Care Team (Late st Contact Info) Description 10/23/2012 11:00 AM EDT Office [place] [address] Abel Carlton MD [facility] [place] [address] Biliary colic (Primary Dx) Discharge Disposition: Home Social History Tobacco Use Types Packs/Day Years Used Date Smoking Tobacco: Every Day Cigarettes 2 20 Smokeless Tobacco: Never Sex and Gender Information Value Date Recorded Sex Assigned at Not on file Gender Identity Not on file Sexual Orientation Not on file documented as of this encounter Progress Notes * Abel Carlton MD - 10/27/2012 10:19 PM EDT Poppy Mclaughlin is a 52 y.o. female referred by MARY ALICE DOMINGO APRN for symptomatic gallstones. Rosendos had several episodes of acute abdominal pain. These episodes, which typically last 20 or 30 minutes, are manifest by epigastric pain, which often radiates to the right upper quadrant and chest. As sociated symptoms include nausea but no vomiting, fevers or other symptoms. Her other complaint is abdominal bloating. She denies jaundice, dark urine or pale stools. A right upper quadrant ultrasound revealed multiple gallstones, but no other abnormalities. HIDA scan reveals decreased emptying (dyskinesia) Past Medical History: Patient Active Problem List Diagnoses Code ??? Abdominal distention 787.3 ??? Multiple nodules of lung 793.19 ??? Dyspnea 786.09 ??? Biliary colic 574.20 Nutcracker esophagus No past surgical history on file. Medications: Current Outpatient Prescriptions on File Prior to Visit Medication Sig Dispense Refill ??? VITAMIN B COMPLEX ORAL Take by mouth daily. ??? ASCORBATE CALCIUM (VITAMIN C ORAL) Take by mouth. ??? loratadine (CLARITIN) 10 mg tablet Take 10 mg by mouth daily. ??? pseudoephedrine (SUDAFED) 30 mg tablet Take 30 mg by mouth every 4 hours as needed. ??? guaiFENesin (ROBITUSSIN) 100 mg/5 mL syrup Take 200 mg by mouth 3 times daily as needed. ??? fluticasone (FLONASE) 50 mcg/actuation nasal spray 1 spray by Each Nare route 2 times daily. 16g 12 ??? ipratropium (ATROVENT) 0.06 % nasal spray 2 sprays by Nasal route 4 times daily. 15 mL 12 ??? citalopram (CELEXA) 40 mg tablet Take 1 tablet by mouth daily. 90 tablet 3 ??? diphenoxylate-atropine (LOMOTIL) 2.5-0.025 mg per tablet Take 1 tablet by mouth 4 times daily as needed for Diarrhea. 120 tablet 0 ??? dexlansoprazole (DEXILANT) 60 mg CpDM Take [...] by mouth daily. Allergies: Albuterol and Egg Family History: No family history on file. Social History: reports that she has been smoking Cigarettes. She has a 40 pack-year smoking history. She has neverused smokeless tobacco. Review of Systems: Review of systems is negative for any unexplained weight loss or weight gain. She denies any cough,chest pain or shortness on breath on exertion. She has no fevers, chills or night sweats. She denies headaches, dizziness, weakness, numbness or ataxia. Bowel and bladder elimination is normal. All other system reviews are negative. On physical examination, this is a well appearing female. There is no scleral or skin icterus. Mucous membranes are moist. pupils reactive. Her lungs are clear to auscultation. Heart is regular, rate, and rhythm and without murmurs. Her abdomen is nontender and without palpable masses. There are nogroin hernias. Her extremity and neurological exam are grossly normal. Impression. Symptomatic gallstones. Because of the frequency of her biliary colic, I agree that laparoscopic cholecystectomy is indicated. The majority of this visit was spent discussing the nature of her gallstone disease and reasons for considering laparoscopic cholecystectomy (to eliminate current symptoms and prevent future complications). We also reviewed the risks of this procedure, including the possibility of bleeding requiring transfusion, infection, injury to the biliary tree, and theoccasional need to convert to an open procedure. Overall, she seems well informed and wishes to proceed. documented in this encounter Plan of Treatment Not on file documented as of this encounter Visit Diagnoses Diagnosis Biliary colic- Primary Calculus of gallbladder without mention of cholecystitis or obstruction documented in this encounter Care Teams Multicraft Operator Relationship Specialty Start Date End Date Mary Alice Domingo APRN PCP - General 10/12/11 11/12/18 documented as of this encounter
--- OUTSIDE RECORDS SUMMARY | 2024-03-17 18:35 | XMS_ITS | Encounter Summary ---
Author Organization [facility] [place] [address] Care Team Providers Care Information Services Tech Name Role Phone Mary Alice Cage MANUELA Primary Care Provider [phone] Encounter Details Date Type Department Care Team (Latest Contact Info) Description 08/07/2012 10:03 AM [facility] - 08/07/2012 11:59 PM [facility] Hospital [place] [address] CLINIC, Justin Babin MD [facility] [place] [address] Pulmonary nodules Discharge Disposition: Home Social History Tobacco Use [...] Date End Date diphenoxylate-atropine (LOMOTIL) 2.5-0.025 mg per tablet Take 1 tablet by mouth 4 times daily as needed for Diarrhea. 120 tablet 0 07/10/2012 12/09/2012 citalopram (CELEXA) 10 mg tablet Take 2 tablets by mouth daily. 30 tablet 3 06/23/2012 08/28/2012 dexlansoprazole (DEXILANT) 60 mg CpDM Take 60 [...] Comments CT CHEST WO CONTRAST (GENERIC) Routine 08/07/2012 10:14 AM EST Other nonspecific abnormal finding of lung field documented in this encounter Results * CT chest WO contrast (08/07/2012 10:14 AM EST) Anatomical Region Laterality Modality Chest Computed Tomogra phy 08/07/2012 10:1 4 AM EST Impressions 08/07/2012 10:38 AM EST Impression: Diffuse granulomata of the lungs only (no granulomata within the liver or spleen) consistent with an inhaled exposure and not hematogenously disseminated. No active/acute abnormality Incidental left adrenal myelolipoma Narrative 08/07/2012 10:[address] Chest Without Contrast Clinical History smoker, cxr showed nodules Comparison Comparison: Correlated CT May 2012. Technique: Non-contrast images obtained through the chest. Findings Findings: There diffuse calcified tiny granulomas throughout the lungs. No mass, scarring or lymphadenopathy. No emphysematous change. ?? Upper images of the abdomen show an ??incidental left adrenal lesion that has Hounsfield units less than 10. Remainder of the intra-abdominal organs within the field of view and as evaluated on a noncontrast technique are normal. ?? Bone windows are normal. ?? Impression Procedure Note Keli Velasquez MD - 08/07/[address] Chest Without Contrast Clinical History smoker, cxr showed nodules Comparison Comparison: Correlated CT May 2012. Technique: Non-contrast images obtained through the chest. Findings Findings: There diffuse calcified tiny granulomas throughout the lungs. No mass, scarring or lymphadenopathy. No emphysematous change. Upper images of the abdomen show an incidental left adrenal lesion thathas Hounsfield units less than 10. Remainder of the intra-abdominal organswithin the field of view and as evaluated on a noncontrast technique are normal. Bone windows are normal. Impression IMPRESSION Impression: Diffuse granulomata of the lungs only (no granulomata withinthe liver or spleen) consistent with an inhaled exposure and nothematogenously disseminated. No active/acute abnormality Incidental left adrenal myelolipoma Justin Starkey MD IMG CT ORDERABLES documented in this encounter Visit Diagnoses Diagnosis Pulmonary nodules Other nonspecific abnormal finding of lung field documented in this encounter Care Teams Information Services Tech Relationship Specialty Start Date End Date Mary Alice Cage APRN PCP - General 10/12/11 11/12/18 documented as of this encounter
--- OUTSIDE RECORDS SUMMARY | 2024-03-17 18:35 | XMS_ITS | Encounter Summary ---
Author Organization [facility] Address [facility] [place] [address] Care Team Providers Care Transfer And Pumphouse Operator Name Role Phone Mary Alice Cage MANUELA Primary Care Provider [phone] Encounter Details Date Type Department Care Team (Latest Contact Info) Description 05/26/2012 1:45 PM EDT - 05/26/2012 11:59 PM EDT Hospital Encounter XRay at [address] [place] [address] CLINIC, Justin Babin MD [facility] [place] [address] Bloat Discharge Disposition: Home Social History Tobacco Use [...] Procedure Name Priority Date/Time Associated Diagnosis Comments DIFFERENTIAL, AUTOMATED Routine 05/26/2012 2:01 PM EDT TISSUE TRANSGLUTAMINASE, IGA Routine 05/26/2012 2:01 PM EDT Bloat CBC (WITH DIFF) Routine 05/26/2012 2:01 PM EDT Bloat TSH Routine 05/26/2012 2:01 PM EDT Bloat COMPREHENSIVE METABOLIC PANEL Routine 05/26/2012 2:01 PM EDT Bloat XR ABDOMEN FLAT AND UPRIGHT Routine 05/26/2012 1:54 PM EDT Bloat documented in this encounter Results * (ABNORMAL) DIFFERENTIAL, AUTOMATED (05/26/2012 2:01 PM EDT) Neutrophil % 59.9 34.0 - 71.0 % [facility] MILLENNIUM Neutrophil Absolute 5.92 1.50 - 6.30 x10(3)/mc L CERNER MILLENNIUM Lymph % 34.4 19.0 - 53.0 % CERNER MILLENNIUM Lymphocytes Abs 3.4 1.0 - 3.6 x10(3)/mc L CERNER MILLENNIUM Monocyte % 3.7(L) 4.0 - 13.0 % CERNER MILLENNIUM Monocyte Abs 0.4 0.2 - 1.0 x10(3)/mc L CERNER MILLENNIUM Eos % 1.5 0.0 - 7.0 % CERNER MILLENNIUM Eosinophils Abs 0.2 0.0 - 0.5 x10(3)/mc L CERNER MILLENNIUM Basophil % 0.4 0.0 - 2.0 % CERNER MILLENNIUM Baso Absolute 0.0 0.0 - 0.2 x10(3)/mc L CERNER MILLENNIUM Immature Gran % 0.10 0.00 - 0.66 % CERNER MILLENNIUM Comment: Immature granulocytes(IG's)percentage and absolute count will include metamyelocytes, myelocytes, and promyelocytes. Blood smears from CBCs yielding IG's will be scanned manually for concordance. If this scan disagrees with the automated IG or if promyelocytes are noted, a manual differential will be performed. Immature Gran Absolute 0.01 0.00 - 0.05 x10(3)/mc L CERNER MILLENNIUM Blood specimen (specimen) 05/26/2012 2:01 PM EDT 05/26/2012 2:08 PM EDT Justin Starkey MD HEMATOLOGY ORDERABLE S Performing Organization Address [facility] Co de Phone Number [facility] * Tissue transglutaminase, IgA (05/26/2012 2:01 PM EDT) TTG IgA Ab <4.0 <=3.9 u/ml [facility] Comment: Result Interpretation: Negative: ?<4 U/mL Weak Positive: ??4-10 U/mL Positive: ?>10 U/mL Blood specimen (specimen) 05/26/2012 2:01 PM EDT 05/27/2012 8:16 AM EDT Narrative Resulting Agency Comment Spec In Lab Justin Starkey MD IMMUNOLOGY ORDERABLE S Performing Organization Address [facility] Co de Phone Number [facility] * TSH (05/26/2012 2:01 PM EDT) Thyroid Stimulating Hormone 0.87 0.27 - 4.20 mcIU/mL [facility] Blood specimen (specimen) 05/26/2012 2:01 PM EDT 05/26/2012 2:08 PM EDT Narrative Resulting Agency Comment Spec In Lab Justin Starkey MD CHEMISTRY ORDERABLES [facility] * Comprehensive metabolic panel (non-fasting) (05/26/2012 2:01 PM EDT) [facility] Glucose 99 60 - 199 mg/dL CERNER MILLENNIUM Comment:Diabetes: >=200 mg/d L plus symptoms Blood Urea Nitrogen 12 8 - 18 mg/dL CERNER MILLENNIUM Creatinine 0.82 0.70 - 1.20 mg/dL [facility]ERN[facility] MILLENNIUM Comment: Please note that the pediatric reference intervals supplied above were not validated at [facility]. Results from pediatric patients should be interpreted [...] Lab Justin Starkey MD CHEMISTRY ORDERABLES [facility] * (ABNORMAL) CBC (with Diff) (05/26/2012 2:01 [...] Lab Justin Starkey MD HEMATOLOGY ORDERABLE S [facility] * XR abdomen flat and upright (05/26/2012 [...] pain documented in this encounter Care Teams Transfer And Pumphouse Operator Relationship Specialty Start Date End Date Mary Alice Cage APRN PCP - General 10/12/11 11/12/18 documented as of this encounter
--- OUTSIDE RECORDS SUMMARY | 2024-03-17 18:35 | XMS_ITS | Encounter Summary ---
Author Organization [facility] Address [facility] [place] [address] Care Team Providers Care Food And Beverage Order Clerk Name Role Phone Mary Alice Cage MANUELA Primary Care Provider [phone] Encounter Details Date Type Department Care Team (Latest Contact Info) Description 10/23/2012 12:16 PM EDT - 10/23/2012 11:59 PM EDT Hospital [place] [address] CLINIC, DR MATEUSZ Holloway, Osmany Overton MD [facility] [place] [address] Dyspnea Discharge Disposition: Home Social History Tobacco [...] Notes * Miscellaneous - Provider, Scanning - 11/03/2012 5:12 AM EDT documented in this encounter Plan of Treatment Not on file documented as of this encounter Procedures Procedure Name Priority Date/Time Associated Diagnosis Comments MRI CERVICAL SPINE WO CONTRAST Routine 10/23/2012 12:59 PM EDT Dyspnea documented in this encounter Results * (ABNORMAL) MRI cervical spine WO contrast (10/23/2012 12:59 PM EDT) Anatomical Region Laterality Modality C-spine Magnetic Resonan ce 10/23/2012 12:5 9 PM EDT Narrative 10/23/2012 4:53 PM EDT Examination MR Cspine WO Nehemias Clinical History Severe respiratory muscle weakness ?? neck pain with radicular pain Comparison None. Technique MRI of the cervical spine without contrast. Findings Straightening of the normal lordotic curvature of the cervical spine which may be due to positioning or spasm. ??The vertebral body heights are preserved. ?? Desiccation of discs and disc space loss at the C4-C5 and C5-C6 levels. ??Normal bone marrow signal intensity. ?? C2-C3: Central disc protrusion mildly flattening the ventral thecal sac, is not canal or neural foraminal stenosis ?? C3-C4: Small central disc protrusion, mild left facet arthropathy, no central canal or neural foraminal stenosis ?? C4-C5: Small central mild central canal stenosis, left uncovertebral hypertrophy and facet arthropathy with mild left neural foraminal stenosis C5-C6: Large right paracentral disc protrusion with endplate osteophyte causing severe central canal stenosis, and flattening the right ventral spinal cord with moderate/severe right and left neural foraminal stenosis ?? C6-C7: Large right paracentral / lateral disc extrusion causing severe central canal stenosis and flattening the right aspect of the spinal cord and extending into the right neural foramen causing severe right neural foraminal stenosis, likely impinging on the exiting right C7 nerve root ?? C7-T1: No stenosis ?? The spinal cord is normal in caliber, except for flattening of the right aspect at the C5-6 and C6-7 levels, as detailed above. Suboptimal imaging but no obvious T2 prolongation in the cord. ?? Impression Degenerative disease throughout the cervical spine, as detailed above, including a large right paracentral/lateral C6-C7 disc extrusion causing severe central canal stenosis and likely impinging on the exiting right C7 nerve root, as well as large right paracentral C5-C6 disc protrusion causing severe central canal stenosis ?? Unexpected finding Resulting Agency Comment Unexpected Finding Procedure Note Susan Almanzar MD - 10/23/2012 Examination MR Mamei DEVINE Nehemias Clinical History Severe respiratory muscle weakness neck pain with radicular pain Comparison None. Technique MRI of the cervical spine without contrast. Findings Straightening of the normal lordotic curvature of the cervical spine whichmay be due to positioning or spasm. The vertebral body heights are preserved. Desiccation of discs and disc space loss at the C4-C5 and C5-C6 levels.Normal bone marrow signal intensity. C2-C3: Central disc protrusion mildly flattening the ventral thecal sac,is not canal or neural foraminal stenosis C3-C4: Small central disc protrusion, mild left facet arthropathy, nocentral canal or neural foraminal stenosis C4-C5: Small central mild central canal stenosis, left uncovertebral hypertrophy and facet arthropathy with mild left neural foraminal stenosis C5-C6: Large right paracentral disc protrusion with endplate osteophytecausing severe central canal stenosis, and flattening the right ventral spinalcord with moderate/severe right and left neural foraminal stenosis C6-C7: Large right paracentral / lateral disc extrusion causing severecentral canal stenosis and flattening the right aspect of the spinal cord andextending into the right neural foramen causing severe right neural foraminalstenosis, likely impinging on the exiting right C7 nerve root C7-T1: No stenosis The spinal cord is normal in caliber, except for flattening of the rightaspect at the C5-6 and C6-7 levels, as detailed above. Suboptimal imaging but no obvious T2 prolongation in the cord. Impression Degenerative disease throughout the cervical spine, as detailed above, including a large right paracentral/lateral C6-C7 disc extrusion causingsevere central canal stenosis and likely impinging on the exiting right C7 nerveroot, as well as large right paracentral C5-C6 disc protrusion causing severecentral canal stenosis Unexpected finding Osmany Overton MD IMG MRI ORDERABLES documented in this encounter Visit Diagnoses Diagnosis Dyspnea Other dyspnea and respiratory abnormality documented in this encounter Care Teams Food And Beverage Order Clerk Relationship Specialty Start Date End Date Mary Alice Cage APRN PCP - General 10/12/11 11/12/18 documented as of this encounter
--- OUTSIDE RECORDS SUMMARY | 2024-03-17 18:35 | XMS_ITS | Encounter Summary ---
[place] [address] Care Team Providers Care Manager Local Name Role Phone Mary Alice Cage APRN Primary Care Provider [phone] Reason for Visit * Reason Onset Date Comments Medication Refill 03/05/2012 Encounter Details Date Type Department Care Team (Late st Contact Info) Description 03/05/2012 [place]ill [place] [address] Ashanti Talley RN Social History Tobacco Use [...] filedocumented in this encounter Care Teams Manager Local Relationship Specialty Start Date End Date Mary Alice Cage APRN PCP - General 10/12/11 11/12/18 documented as of this encounter
--- OUTSIDE RECORDS SUMMARY | 2024-03-17 18:35 | XMS_ITS | Encounter Summary ---
Author Organization [facility] [place] [address] Care Team Providers Care Manager Information Name Role Phone Mary Alice Cage MANUELA Primary Care Provider [phone] Reason for Visit * Reason Comments Follow-up Encounter Details Date Type Department Care Team (Late st Contact Info) Description 10/14/2012 4:15 PM EST Follow-[place] [address] SCHEDULE 1, PFT Osmany Holloway MD [facility] [place] [address] Dyspnea (Primary Dx) Discharge Disposition: Home Social History [...] Sign Reading Time Taken Comments Blood Pressure 138/97 10/14/2012 4:04 PM EST Pulse 95 10/14/2012 4:04 PM EST Temperature - - Respiratory Rate 20 10/14/2012 4:04 PM EST Oxygen Saturation 100% 10/14/2012 4:04 PM EST Inhaled Oxygen Concentration - - Weight 69.9 kg (154 lb) 10/14/2012 4:04 PM EST Height 156.2 cm (5' 1.5) 10/14/2012 4:04 PM EST Body Mass Index 28.63 10/14/2012 4:04 PM EST documented in this encounter Progress Notes * Osmany Holloway MD - 10/14/2012 4:51 PM EST PULMONARY MEDICINE Follow-Up Follow-up 52 y.o. female with dyspnea PAST MEDICAL HISTORY: Patient Active Problem List Diagnoses Code ??? Abdominal distention 787.3 ??? Multiple nodules of lung 793.19 MEDICATIONS: Outpatient Prescriptions Marked as Taking for the 10/14/12 encounter (Follow-Up) with Josy Holloway MD Medication Sig Dispense Refill ??? VITAMIN B [...] by mouth daily. ALLERGIES: Albuterol and Egg PHYSICAL EXAM Last value Range last 24 hrs Temperature Heart Rate Heart Rate: 95 Heart Rate: [92-95] Blood Pressure BP: 138/97 mmHg BP: (138-175)/(94-97) Respiratory Rate Resp: 20 Resp: [20] SpO2 SpO2: 100 % SpO2: [100 %] WDWN 52 y.o. female in NAD. HEENT-NC/AT; unremarkable Neck-supple without masses or, nodes Chest- bases bilaterally Heart-Normal rate and rhythm, without murmers, gallops, or rubs. Abdomen-benign without organomegaly or tenderness Extremities-no cyanosis, clubbing, or edema Skin-no rashes or lesions Musculoskeletal-no joint swelling, tenderness, redness or deformities Neurologic-Nonfocal, without weakness or sensory deficits Lymphatics-unremarkable I have personally reviewed the PFTs, and my interpretation is as follows: I have personally reviewed the radiographic studies and my interpretation is as follows: IMPRESSION: In summary, this is a 52 y.o. female with Greater than 30 min of this 40 minute visit was spent in face to face discussion with the patient and family regarding the nature and complexity of the problems described above, and the details of our diagnostic and therapeutic plans. documented in this encounter Plan of Treatment Not on file documented as of this encounter Procedures Procedure Name Priority Date/Time Associated Diagnosis Comments [id number] Routine 10/14/2012 5 :43 PM EST Dyspnea CK Routine 10/14/2012 5:43 PM EST Dyspnea documented in this encounter Results * (ABNORMAL) MRI cervical spine WO contrast (10/23/2012 12:59 PM EDT) Anatomical Region Laterality Modality C-spine Magnetic Resonan ce 10/23/2012 12:5 9 PM EDT Narrative 10/23/2012 4:53 PM EDT Examination MR Hatch WO Nehemias Clinical History Severe respiratory muscle [...] Susan Almanzar MD - 10/23/2012 Examination MR Mamie WO Nehemias Clinical History Severe respiratory muscle [...] finding Osmany Overton MD IMG MRI ORDERABLES * CK (10/14/2012 5:43 PM EST) Creatine Kinase 86 0 - 160 unit/L [facility] Blood specimen (specimen) 10/14/2012 5:43 PM EST 10/14/2012 5:47 PM EST Narrative Resulting Agency Comment Spec In Lab Osmany Overton MD CHEMISTRY ORDERABLE S [facility] * A1AT Serum Concentration (10/14/2012 5:43 PM EST) A1AT 171 100 - 190 mg/dL [facility] Comment: Test Performed by: [facility] [address], [place] [address] [employer]s Drill Operator: Keena Vogel, Ph.D. Blood specimen (specimen) 10/14/2012 5:43 PM EST 10/15/2012 8:20 AM EST Narrative Resulting Agency Comment Spec In Lab Osmany Overton MD CHEMISTRY ORDERABLE S [facility] documented in this encounter Visit Diagnoses Diagnosis Dyspnea- Primary Other dyspnea and respiratory abnormality Dyspnea Other dyspnea and respiratory abnormality documented in this encounter Care Teams Manager Information Relationship Specialty Start Date End Date Mary Alice Cage APRN PCP - General 10/12/11 11/12/18 documented as of this encounter
--- OUTSIDE RECORDS SUMMARY | 2024-03-17 18:35 | XMS_ITS | Encounter Summary ---
Author Organization [facility] [place] [address] Care Team Providers Care Dampener Name Role Phone HowardMary Alice davis MANUELA Primary Care Provider [phone] Encounter Details Date Type Department Care Team (Late st Contact Info) Description 10/14/2012 2:00 PM EST Office [place] [address] Beth Blum LD [facility] [place] [address] Abdominal distension (Primary Dx) Discharge Disposition: Home Social History [...] Sign Reading Time Taken Comments Blood Pressure 175/94 10/14/2012 1:51 PM EST Pulse 92 10/14/2012 1:51 PM EST Temperature - - Respiratory Rate - - Oxygen Saturation - - Inhaled Oxygen Concentration - - Weight 71.7 kg (158 lb) 10/14/2012 1:51 PM EST Height 162.6 cm (5' 4) 10/14/2012 1:51 PM EST Body Mass Index 27.12 10/14/2012 1:51 PM EST documented in this encounter Patient Instructions * Patient Instructions* Beth Blum LD - 10/14/2012 2:20 PM EST Elimination Diet: Eat only the following for 2 weeks: -skinless chicken cooked in abram -fat free cottage cheese -potato-no skin. Salt and pepper ok -broth of any kind -smooth peanut butter Eat earlier in the day for a goal of adding a couple hundred calories for weight maintenance. Find a multivitamin with minerals and take with food. Find one with 500mg of calcium per serving. Calcium- 1,200mg/day including what is in your multivitamin. Vitamin D-get levels checked. Call me in 2 weeks and we will re evaluate ([phone]) documented in this encounter Progress Notes * Beth Blum LD - 10/14/2012 1:53 PM EST GI Nutrition-Initial Visit S: This is what my stomach looks like all the time, regardless of what I eat. They diagnosed me with Nutcracker esophagus. O: Patient Active Problem List Diagnoses Code ??? Abdominal distention 787.3 ??? Multiple nodules of lung 793.19 VITAMIN B COMPLEX ORAL; ASCORBATE CALCIUM (VITAMIN C ORAL); loratadine (CLARITIN) 10 mg tablet; pseudoephedrine (SUDAFED) 30 mg tablet; guaiFENesin (ROBITUSSIN) 100 mg/5 mL syrup; fluticasone (FLONASE) 50 mcg/actuation nasal spray; ipratropium (ATROVENT) 0.06 % nasal spray; citalopram (CELEXA) 40 mg tablet; diphenoxylate-atropine (LOMOTIL) 2.5-0.025 mg per tablet; dexlansoprazole (DEXILANT) 60 mgCpDM; dicyclomine (BENTYL) 10 mg capsule acetaminophen (TYLENOL EXTRA STRENGTH) 500 mg tablet; ibuprofen (ADVIL;MOTRIN) 600 mg tablet; DISCONTD: nystatin (MYCOSTATIN) 100,000 unit/mL suspension Lomotil a few times per week. Weight history: Vitals 10/14/2012 08/28/2012 08/28/2012 05/26/2012 Height (Bulgarian) 5' 4 5' 2 5' 4 Height (Metric) 162.6 cm 157.5 cm 162.6 cm Weight (Bulgarian) 158 lbs 160 lbs 167 lbs Weight (Metric) 71.668 kg 72.576 kg 75.751 kg BODY MASS INDEX 27.11 kg/m2 29.26 kg/m2 28.65 kg/m2 Vitals 11/09/2011 Height (Bulgarian) 5' 3.78 Height (Metric) 162 cm Weight (Bulgarian) 172 lbs Weight (Metric) 78.019 kg BODY MASS INDEX 29.73 kg/m2 Typical Day of Eating: Is up 8am-10am 4-5 cups of coffee. Noon has half of a sandwich or a banana. Dinner has potato, and small piece of meat, carrots. Crackers at bedtime. Drinks water. Snacks are rice cakes, chex cereal, ritz crackers. Smokes couple packs per day. Bowel Habits: Moves her bowels once/day now since starting Lomotil. She refers to this as her miracle pill. Social: Does not work because of this. Worked at [employer]. 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 lives there part of the time, and turns 3 this weekend. A: Poppy comes today for dietary management of abdominal distension/bloating.She describes her history leading up to today as follows. In May 2011 was discovered to have a strangulated hernia withrepair. October [address] Keller and has seen Malia Vidal since with multiple other providers between then who didn't find anything. Says the only answers she has received is distended abdomen. Was vomiting and choking on food at some point as well. Diet hx per above fairly limited butadherent to FODMAP aside from RITZ crackers. Weight history shows 15+lb wt loss over the past year with gradual and ongoing inability to tolerate po. She is never hungry and endorses pain with any food she eats, even the food she describes eating daily. Prior to May 2011, could eat anything and everything. She says at this time she weighed well over 200lbs. She has tested negative for Celiac Disease twice, and negative for bacterial overgrowth in May. She is frustrated and shows me her distended abdomen several times, feeling like it would be easier to be . We discussed the following strict elimination diet for 2 weeks to see if this helps. Poppy plans to start this early next week, as her granddaughter's birthday is this weekend and she would like to take part in eating food at this event.Radha is certainly deficient in protein, calcium, and vitaminD in her diet. She is having her D tested today, as she came fasting. Will start her on a multivitamin and calcium. P: Elimination Diet: Eat only the following for 2 weeks: -skinless chicken cooked in abram -fat free cottage cheese -potato-no skin. Salt and pepper ok -broth of any kind -smooth peanut butter Eat earlier in the day for a goal of adding a couple hundred calories for weight maintenance. Find a multivitamin with minerals and take with food. Find one with 500mg of calcium per serving. Calcium- 1,200mg/day including what is in your multivitamin. Vitamin D-get levels checked. Call me in 2 weeks and we will re evaluate ([phone]) documented in this encounter Plan of Treatment Not on file documented as of this encounter Procedures Procedure Name Priority Date/Time Associated Diagnosis Comments VITAMIN D, 25-HYDROXY Routine 10/14/2012 2:50 PM EST Abdominal distension documented in this encounter Results * (ABNORMAL) VIT D Total Evaluation (10/14/2012 2:50 PM EST) Vitamin D Total 25 OH 10(L) 30 - 100 ng/mL [facility] Comment: Deficient <10 ng/mL Insufficient 10 to 29 ng/mL Sufficient 30 to 100 ng/mL Potential Intoxication >100 ng/mL According to the US National Osteoporosis Foundation, Vitamin D concentrations >30 ng/mL are sufficient to protect bone health. ??The National Kidney Foundation has similarly stated that patients with Vitamin D concentrations <30ng/mL should be considered to be insufficient or deficient. http://www.kidney.org/professionals/KDOQI/guidelines_bone/Guide7.htm http://www.nof.org/professionals/clinical-guidelines The IDS iSYS Vitamin D Immunoassay detects both 25-OH Vitamin D2 and 25-OH Vitamin D3, but only a total Vitamin D concentration is reported. Blood specimen (specimen) 10/14/2012 2:50 PM EST 10/14/2012 2:55 PM EST Narrative Resulting Agency Comment Spec In Lab Justin Starkey MD CHEMISTRY ORDERABLES [facility] documented in this encounter Visit Diagnoses Diagnosis Abdominal distension- Primary Flatulence, eructation, and gas pain documented in this encounter Care Teams Dampener Relationship Specialty Start Date End Date Mary Alice Cage APRN PCP - General 10/12/11 11/12/18 documented as of this encounter
--- OUTSIDE RECORDS SUMMARY | 2024-03-17 18:35 | XMS_ITS | Encounter Summary ---
Author Organization [facility] [place] [address] Care Team Providers Care Cobbler Apprentice Name Role Phone [place] Mary Alicepham Drew APRN Primary Care Provider [phone] Reason for Visit * Reason Comments Follow-up Bloody noses once in a while Encounter Details Date Type Department Care Team (Late st Contact Info) Description 10/23/2012 9:45 AM EDT Follow-[place] [address] Samra Goodson SOAP DRIER OPERATOR [facility] [place] [address] Rhinitis (Primary Dx) Discharge Disposition: Home Social [...] Sign Reading Time Taken Comments Blood Pressure 153/94 10/23/2012 9:48 AM EDT Pulse 89 10/23/2012 9:48 AM EDT Temperature - - Respiratory Rate - - Oxygen Saturation - - Inhaled Oxygen Concentration - - Weight 73 kg (161 lb) 10/23/2012 9:48 AM EDT Height 154.9 cm (5' 1) 10/23/2012 9:48 AM EDT Body Mass Index 30.42 10/23/2012 9:48 AM EDT documented in this encounter Progress Notes * Samra Goodson, SOAP DRIER OPERATOR - 10/23/2012 10:16 AM EDT Date of Visit:10/23/2012 Location of Visit: Otolaryngology Clinic, [facility] Patient: Poppy Mclaughlin 1960, [id number] Chief Complaint: Poppy is a 51 year old with a hx of chronic nasal congestion here for a recheck after being started on nasal rinse and steroid nasal spray. Interval History: Poppy is a 51 year old with a hx of chronic nasal congestion here for a recheck.She feels her breathing through her nose is improving. She does feel her sense of smell has improved. No sinus issues. She is using the nasal rinse and spray every day. She has had occasional epistaxis in the a.m. That will stop within a few minutes. She continues to smoke 2 packs/day and is not quitting. She does have a hx of GERD and is being followed by Malia Vidal. She does have a hx of seasonal allergies. No c/o swallowing issues or dyshagia. Past Medical History: Other than above,see list Medications: Current Outpatient Prescriptions on File Prior [...] tablet Take 600 mg by mouth daily. Allergies:Albuterol and Egg ROS: Pertinent positive findings discussed above. No other findings on review of constitutional, visual, cardiovascular, respiratory, gastrointestinal, genitourinary, musculoskeletal, dermatologic, neurological, psychiatric, endocrine, hematologic or immunologic systems. Physical Examination: Blood pressure 153/94, pulse 89, height 154.9 cm (5' 1), weight 73.029 kg (161 lb). General: Age-appropriate interactive behavior in no acute distress. Face:Symmetric without dysmorphic features. Ears: Auricles symmetric bilaterally without lesions. External auditory canals are clear. On the left, tympanic membrane is clear. Middle ear on the left without middle ear pathology. On the right, tympanic membrane clear. Middle ear on the right without middle ear pathology. Nose: Patent anteriorly; healthy pink mucosa without lesions. Septum without significant deviation. Mouth: Lips and gingiva pink, moist, without lesions. Dentition in poor repair. Tongue and floor ofmouth soft without lesions or masses. Hard palate without lesions. Pharynx: Soft palate without lesions; uvula is midline but there is a posterior fossa tissue greater on the right then the left . It is intact without evidence of submucus cleft palate. Oropharynx symmetric. Tonsils 2+ Neck: No lymphadenopathy. Procedure Note: Flexible Fiberoptic Laryngoscopy: A pediatric scope was used. Topical anesthetic and decongestant applied to the nasal cavity. Patient tolerated the procedure well without any complications. Findings: Nasal cavity : anterior examination reveals septum wnl, turbinates non- edematous,no evidence of neoplastic process such as polyps, no mucopurulent drainage but copious clear mucus. Nasopharynx: clear without masses or lesions. Eustachian tube openings normal. Oropharynx: normal without masses or lesions. Larynx: base of tongue normal, valleculae is clear, epiglottis normal shape and contour without erythema or edema, vocal cords normal with some evidence of irritation with mild edema, discrete lesionor paralysis. Post-cricoid region normal. Piriform sinuses are clear. Hypopharynx:unremarkable. Impression: 1) rhinitis improved with a history of GERD 2) nicotine abuse Plan: Continue with nasal rinse and steroid nasal spray. Continue treatment for reflux issues and followup with gastroenterology as planned. Encouraged smoking cessation. Return to clinic as needed. Samra WORKMAN [facility] Otolaryngology-Head and Neck Surgery [place], [place] [address] documented in this encounter Plan of Treatment Not on file documented as of this encounter Visit Diagnoses Diagnosis Rhinitis- Primary Chronic rhinitis documented in this encounter Care Teams Cobbler Apprentice Relationship Specialty Start Date End Date Mary Alice Cage APRN PCP - General 10/12/11 11/12/18 documented as of this encounter
--- OUTSIDE RECORDS SUMMARY | 2024-03-17 18:35 | XMS_ITS | Encounter Summary ---
Author Organization [facility] [place] [address] Care Team Providers Care Occupational Health Nurse Name Role Phone GatesMary Alice davis Rajendra ROY Primary Care Provider [phone] Reason for Visit * Reason Comments Abdominal Pain Encounter Details Date Type Department Care Team (Late st Contact Info) Description 05/13/2012 1:00 PM EDT Office [place] [address] Prince Gentile MD [facility] DR [place]STRO[place] [address] Abdominal distention Discharge Disposition: Home Social History Tobacco Use Types Packs/Day Years Used Date Smoking Tobacco: Every Day Cigarettes Smokeless Tobacco: Never Sex and Gender Information Value Date Recorded Sex Assigned at Not on file Gender Identity Not on file Sexual Orientation Not on file documented as of this encounter Progress Notes * Mary Alice Galvan, RN - 05/14/2012 9:21 AM EDT Gastroenterology Breath Test Report ppmH2 ppmCH4 (f)CO2 Fasting Baseline 9 9 3.57 1.55 Administer sugar Type Lactulose 10 grams Sample Time ppmH2 ppmCH4 (f)CO2 1. 15 min 10 17 3.14 1.76 2. 30 min 11 11 4.13 1.34 3. 45 min 10 11 3.92 1.41 4. 60 min 9 24 3.78 1.47 5. 75 min 24 10 4.31 1.28 6. 90 min 30 8 4.22 1.31 7. 105 min 34 10 4.39 1.26 8. 120 min 45 19 3.98 1.39 9. 135 min 42 11 4.02 1.37 10. 150 min 47 18 4.31 1.28 11. 165 min 38 11 4.27 1.29 12. 180 min 28 5 3.68 1.50 Interpretation: Patient is both a hydrogen and methane independent producer. The methane data is remarkable fora single elevated value at 60 minutes of uncertain significance. The hydrogen data is normal with calculated orocecal transit time of ~ 75 minutes. This test is not highly consistent with bacterial overgrowth. Clincal correlation required. documented in this encounter Plan of Treatment Not on file documented as of this encounter Visit Diagnoses Diagnosis Abdominal distention Flatulence, eructation, and gas pain documented in this encounter Care Teams Occupational Health Nurse Relationship Specialty Start Date End Date Mary Alice Cage APRN PCP - General 10/12/11 11/12/18 documented as of this encounter
--- OUTSIDE RECORDS SUMMARY | 2024-03-17 18:35 | XMS_ITS | Encounter Summary ---
[place] [address] Care Team Providers Care Premium Note Interest Calculator Clerk Name Role Phone Mary Alice Cage APRN Primary Care Provider [phone] Reason for Visit * Reason Onset Date Comments Medication Refill 05/30/2012 Encounter Details Date Type Department Care Team (Late st Contact Info) Description 05/30/2012 Refill [place] [address] Ashanti Talley RN Social History Tobacco Use [...] on filedocumented in this encounter Care Teams Premium Note Interest Calculator Clerk Relationship Specialty Start Date End Date Mary Alice Cage APRN PCP - General 10/12/11 11/12/18 documented as of this encounter
--- OUTSIDE RECORDS SUMMARY | 2024-03-17 18:35 | XMS_ITS | Encounter Summary ---
Author Organization [facility] [address] Care Team Providers Care Sheet Metal Work Furnace Installer Name Role Phone UpshurMary Alice davis MANUELA Primary Care Provider [phone] Encounter Details Date Type Department Care Team (Late st Contact Info) Description 06/23/2012 Orders [place] [address] Malia Vidal APRN [facility] DR [place] [address] Pulmonary nodules (Primary Dx) Social History Tobacco Use Types Packs/Day Years Used Date Smoking Tobacco: Every Day Cigarettes Smokeless Tobacco: Never Sex and Gender Information Value Date Recorded Sex Assigned at Not on file Gender Identity Not on file Sexual Orientation Not on file documented as of this encounter Progress Notes * Malia Vidal RN - 06/23/2012 3:18 PM EST Spoke with pt. Continues with bloating and abdominal pain. No response from rifaximin. Normal egd, colonoscopy, abdomina/pelvic CT, abdominal u/s showed stones, normal emptying study, normal sbft. Plan: 1. Sx appear functional: hida scan. Increase celexa to 20mg qd. Continue with dexilant 60mg qd. 2. cxr revealed pulmonary nodules. Pt smokes. Consider chest CT. 3. F/u with pt once results received. documented in this encounter Plan of Treatment Not on file documented as of this encounter Visit Diagnoses Diagnosis Pulmonary nodules- Primary Other nonspecific abnormal finding of lung field documented in this encounter Care Teams Sheet Metal Work Furnace Installer Relationship Specialty Start Date End Date Mary Alice Cage APRN PCP - General 10/12/11 11/12/18 documented as of this encounter
--- OUTSIDE RECORDS SUMMARY | 2024-03-17 18:35 | XMS_ITS | Encounter Summary ---
[place] [address] Care Team Providers Care Digital Marketing Lead Name Role Phone Mary Alice Cage MANUELA Primary Care Provider [phone] Reason for Visit * Reason Onset Date Comments Other 03/05/2012 CT ordered in er ror - dept has removed Encounter Details Date Type Department Care Team (Late st Contact Info) Description 03/05/2012 Tele[place] [id number] Ashanti Talley, KAMLA Other (CT ordered in error - dept has removed) Social History Tobacco Use Types Packs/Day Years Used Date Smoking Tobacco: Every Day Cigarettes Smokeless Tobacco: Never Sex and Gender Information Value Date Recorded Sex Assigned at Not on file Gender Identity Not on file Sexual Orientation Not on file documented as of this encounter Miscellaneous Notes * Telephone Encounter - Ashanti Talley RN - 03/05/2012 1:57 PM EDT I entered an order for Malia Dee PSYCH ASSISTANT: a CT on this pt today. Wrong patient. It is in error and the CT dept was called to remove it. The order may remain but really was not scheduled. documented in this encounter Plan of Treatment Not on file documented as of this encounter Visit Diagnoses Not on filedocumented in this encounter Care Teams Digital Marketing Lead Relationship Specialty Start Date End Date Mary Alice Cage APRN PCP - General 10/12/11 11/12/18 documented as of this encounter
--- OUTSIDE RECORDS SUMMARY | 2024-03-17 18:35 | XMS_ITS | Encounter Summary ---
Author Organization [facility] [address] Care Team Providers Care Bottom Turner Name Role Phone Mary Alice Cage MANUELA Primary Care Provider [phone] Encounter Details Date Type Department Care Team (Late st Contact Info) Description 08/19/2012 Orders [place] [address] Deep Helms MD [facility] DR CRITICAL [place] [address] Calcified granuloma of lung (Primary Dx) Social [...] documented as of this encounter Results * PFT Screen (DLCO,oximetry,spirometry) [...] parenchymal disease (i.e. emphysema, ILD), and anemia. Waste Machine Offbearer notes during the spirometric procedure state that [...] pulmonaryparenchymal disease (i.e. emphysema, ILD), and anemia. Waste Machine Offbearer notes during the spirometric procedure state that the patientcould not exhale for more than three seconds, but per the graph provided,the pulmonary function test does appear to meet ATS criteria forinterpretation (exhalation of six seconds). Clinical correlation is advised. 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
--- OUTSIDE RECORDS SUMMARY | 2024-03-17 18:35 | XMS_ITS | Encounter Summary ---
Author Organization [facility] [address] Care Team Providers Care Welt Slasher Name Role Phone OregonMary Alice davis Rajendra ROY Primary Care Provider [phone] Encounter Details Date Type Department Care Team (Late st Contact Info) Description 09/09/2012 Orders [place] [address] Abel Carlton MD [facility] [place] [address] Social History Tobacco Use Types Packs/Day Years [...] Associated Diagnosis Comments FILM LIBRARY STORAGE ONLY NUCLEAR MEDICINE Routine 09/09/2012 9:31 AM EST documented in this encounter Results * Film Library- Storage only nuclear medicine (09/09/2012 9:31 AM EST) 09/09/2012 9:31 AM EST Narrative RAD - 03/31/2014 11:06 PM EDT This is a non-reportable exam. Procedure Note Sachin Alvarez - 03/31/2014 This is a non-reportable exam. Abel Carlton MD IMG FILM LIBRARY ORD ERABLES RAD [address] [facility] [place] [address] documented in this encounter Visit Diagnoses Not on filedocumented in this encounter Care Teams Welt Slasher Relationship Specialty Start Date End Date Mary Alice Cage APRN PCP - General 10/12/11 11/12/18 documented as of this encounter
--- OUTSIDE RECORDS SUMMARY | 2024-03-17 18:35 | XMS_ITS | Encounter Summary ---
Author Organization [facility] [place] [address] Care Team Providers Care Associate Juvenile Court Judge Name Role Phone PendletonMary Alice davis Rajendra ROY Primary Care Provider [phone] Reason for Referral * Consultation (Routine) - Closed Specialty Diagnoses / Procedures Referred By Chava alejo Referred To Contact Gastroenterology Diagnoses Dyspepsia Malia Vidal IMPLANT POLISHER [facility] [place] [address] [facility] [place] [address] Referral ID Status Reason Start Date Expiration Date V isits Requested Visits Authorized [id number] Closed Consult, Test & Treat 08/24/2012 02/20/2013 1 1 Encounter Details Date Type Department Care Team (Late st Contact Info) Description 08/24/2012 Orders [place] [address] Malia Vidal [facility] [place] [address] Dyspepsia (Primary Dx) Social History Tobacco Use [...] to Gastroenterology Outpatient Referral Routine Dyspepsia Ordered: 08/24/2012 documented as of this encounter Visit Diagnoses Diagnosis Dyspepsia- Primary Dyspepsia and other specified disorders of function of stomach documented in this encounter Care Teams Associate Juvenile Court Judge Relationship Specialty Start Date End Date Mary Alice Cage APRN PCP - General 10/12/11 11/12/18 documented as of this encounter
--- OUTSIDE RECORDS SUMMARY | 2024-03-17 18:36 | XMS_ITS | Encounter Summary ---
[place] [address] Care Team Providers Care Handicraft Or Hobby Shop Manager Name Role Phone Mary Alice Cage MANUELA Primary Care Provider [phone] Reason for Visit * Reason Onset Date Comments Other 12/21/2011 PREFERRED PHARMA CY Encounter Details Date Type Department Care Team (Late st Contact Info) Description 12/21/2011 Telephone [place] [address] Bhavani Knowles RN Other (PREFERRED PHARMACY) Social History Tobacco Use Types Packs/Day Years Used Date Smoking Tobacco: Every Day Cigarettes Smokeless Tobacco: Never Sex and Gender Information Value Date Recorded Sex Assigned at Not on file Gender Identity Not on file Sexual Orientation Not on file documented as of this encounter Miscellaneous Notes * Telephone Encounter - Bhavani Knowles RN - 12/21/2011 4:18 PM EDT Called patient to request information about her preferred pharmacy. Pharmacy information given by the patient and was entered into eDH. Patient informed she is being prescribed Dexilant 60 mg once daily by mouth, which will be eFaxed to her preferred pharmacy. Patient was connected to [facility] [employer] Specialist, so she can get scheduled for an abdominal ultrasound. documented in this encounter Plan of Treatment Not on file documented as of this encounter Visit Diagnoses Not on filedocumented in this encounter Care Teams Handicraft Or Hobby Shop Manager Relationship Specialty Start Date End Date Mary Alice Cage APRN PCP - General 10/12/11 11/12/18 documented as of this encounter
--- OUTSIDE RECORDS SUMMARY | 2024-03-17 18:36 | XMS_ITS | Encounter Summary ---
Author Organization [facility] [address] Care Team Providers Care Gate Watchman Name Role Phone Mary Alice Cage MANUELA Primary Care Provider [phone] Reason for Visit * Reason Comments GI Problem Encounter Details Date Type Department Care Team (Late st Contact Info) Description 11/09/2011 12:00 PM EDT Office [place] [address] Osmany Keller MD [facility] [place] [address] Abdominal pain (Primary Dx) Discharge Disposition: Home Social History Tobacco Use Types Packs/Day Years Used Date Smoking Tobacco: Every Day Cigarettes Smokeless Tobacco: Never Sex and Gender Information Value Date Recorded Sex Assigned at Not on file Gender Identity Not on file Sexual Orientation Not on file documented as of this encounter Last Filed Vital Signs Vital Sign Reading Time Taken Comments Blood Pressure 158/111 11/09/2011 12:05 PM EDT Pulse 105 11/09/2011 12:05 PM EDT Temperature - - Respiratory Rate - - Oxygen Saturation - - Inhaled Oxygen Concentration - - Weight 78 kg (172 lb) 11/09/2011 12:05 PM EDT Height 162 cm (5' 3.78) 11/09/2011 12:05 PM EDT Body Mass Index 29.73 11/09/2011 12:05 PM EDT documented in this encounter Progress Notes * Osmany Keller MD - 11/09/2011 12:58 PM EDT HISTORY: Poppy Mclaughlin presents for consultation and further evaluation of numerous GI issues. Symptoms began late last summer. Hunter like she had pulled her abdominal muscles. Has post-prandial fullness and regurgitation. Has occasional pyrosis on meds, more when off. Has constant abdominal bloat, and abdomen gets rock-hard after eating. In May had strangulated umbilical hernia with obstruction, and had repair. Intake of alcohol makes her symptomatic. Has early satiety (used to eat 3 plates of food at buffet to half to one). Has awakening in am and can have weird burps. Omeprazole helps to get rid of some gas and regurgitation. Has much rectal gas passage. Has sensation of slow passage with swallows of solids. Uses ibuprofen for TMJ. Uses daily narcotics for pain relief. Before her surgery she had a BM every 3 days. Since the surgery, has had daily formed bm. She is happy with her bowel habit. No blood. Weight is regular, appetite is down as described above. No liver or pancreas disease. No family GI history. Had CT scan of abdomen and pelvis. No findings related to her. Told she might have celiac sprue. Had some z-line goblet cells with what seems may be an irregular z-line and not discernable Rudd's Tried Bentyl, made her tired.. PMHx: Peripheral edema Hx htn No DM No mammography no pap smear. No heart lung kidney issues. There is no problem list on file for this patient. PHYSICAL EXAM: Filed Vitals: 11/09/11 1205 BP: 158/111 Pulse: 105 No succussion splash Tender in LLQ and in epigastrium No mass IMPRESSION: GERD, with symptoms consistent with possible gastroparesis. We discussed the testing for gastric emptying. This should be done off narcotics. She should go off use of chronic opiates. This may be contributing to her symptoms. The use of the ibuprofen may relate the the minimal findings on upper endoscopy and to symptoms. No dairy related symptoms. Can do TTG with IgA to determine additional info on celiac. Over 60 minutes spent in direct adxr-ul-vufo discussion of symptoms and planning further management. PLAN: Gastric nuclide emptying scan. Consider esophageal manometry to determine more generalized motility disordered. Continue PPI. Go off narcotics. Discuss work-up and management with referring MD May consider trial of TCAs (she was told of tiredness on this at least initially). Osmany Keller MD Section of Gastroenterology and Hepatology documented in this encounter Plan of Treatment Not on file documented as of this encounter Visit Diagnoses Diagnosis Abdominal pain- Primary Abdominal pain, unspecified site documented in this encounter Care Teams Gate Watchman Relationship Specialty Start Date End Date Mary Alice Cage, MANUELA PCP - General 10/12/11 11/12/18 documented as of this encounter
--- OUTSIDE RECORDS SUMMARY | 2024-03-17 18:36 | XMS_ITS | Encounter Summary ---
Author Organization [facility] Address [address] [place] [address] Care Team Providers Care Trust Manager Name Role Phone Unknown, Provider Primary Care Provider [phone] Encounter Details Date Type Department Care Team (Late st Contact Info) Description 09/21/2011 Results Only [facility] [phone] Raghu Figueroa, DO [address] [place] [address] Social History Tobacco Use Types Packs/Day Years Used Date Smoking Tobacco: Never Assessed Sex and Gender Information Value Date Recorded Sex Assigned at Not on file Gender Identity Not on file Sexual Orientation Not on file documented as of this encounter Plan of Treatment Not on file documented as of this encounter Procedures Procedure Name Priority Date/Time Associated Diagnosis Comments SURGICAL PATHOLOGY Routine 09/21/2011 0:00 EST documented in this encounter Results * SURGICAL PATHOLOGY (09/21/2011 0:00 EST) Pathology Report: SURGICAL PATHOLOGY REPORT Reports generated via electronic interface contain original data; however they are lacking the format of the original report. Caution should be taken when reading/interpreti ng unformatted reports. Name: ? AGGIE PINOE ? Accession #: ? [id number] ? : ? 1960 (Age: 51) ??F ? Collect Date: ? 09/21/2011 ? Location: ? [facility] ? Receive Date: ? 09/21/2011 ? Provider: RAGHU FIGUEROA DO Copy to: RADHA GAN MD ? Final Pathologic Diagnosis: A. ?Small bowel, duodenum, biopsies: 1. ?Mild patchy increase in intraepithelial lymphocytes with focal associated villous blunting. ??See comment. B. ?Stomach, antrum, biopsies: 1. ?Reactive (chemical) gastropathy. ?? 2. ? No Helicobacter pylori-like microorganisms identified on H&E-stained sections. ?? C. ?Gastroesophageal junction, biopsies: 1. 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 2. ? Squamocolumnar mucosa with acute and chronic inflammation and reactive epithelial changes. 3. ? No dysplasia identified. D. ?Colon, sigmoid, biopsies: 1. ?Colonic mucosa with no specific pathologic features. Comment: ? Given the histologic features of the duodenal biopsies, serologic testing for celiac disease may be warranted. ??Specimen (A) was reviewed in consultation with Dr. Sanaz Brand who agrees with the diagnosis. ??(Dr. Malloy)/n Document reviewed and electronically signed by: WASHINGTON MALLOY MD Report ??Date: 09/25/2011 15:44 By the signature above, the attending physician certifies that he/she has personally conducted a gross and/or microscopic examination of the described specimens and rendered or confirmed the above diagnosis. Specimen(s) Received: A. ?Duodenum bx B. ? Gastric antrum bx C. ? Bx GE junction D. ? Sigmoid bx Clinical History: ? Several mos hx of N/V and abd discomfort, S/P umbilical hernia repair Gross Description: ? Received in formalin labelled Gonyer, Poppy and bx duodenum are four zuniga-pink, irregular soft tissue fragments ranging from 0.2 x 0.2 x 0.2 cm to 0.5 x 0.2 x 0.2 cm. ??The specimen is entirely submitted as (A1) and (A2). Received in formalin labelled Gonyer, Poppy and bx gastric antrum are four zuniga-pink, irregular soft tissue fragments ranging from 0.2 x 0.2 x 0.2 cm to 0.3 x 0.2 x 0.2 cm. ??The specimen is entirely submitted as (B1) and (B2). Received in formalin labelled Gonyer, Poppy and bx GE junction are two zuniga-pink, irregular soft tissue fragments averaging 0.3 x 0.3 x 0.3 cm. ??The specimen is entirely submitted as (C). Received in formalin labelled Gonyer, Poppy and bx sigmoid are two zuniga-pink, irregular soft tissue fragments averaging 0.2 x 0.2 x 0.2 cm. ??The specimen is entirely submitted as (D). (Thomas Connolly)/[facility] End of Report IRAS[facility] SANC[facility] 09/21/2011 09/21/2011 11: 16 EST Raghu Figueroa DO PATHOLOGY ORDERABLES Performing Organization Address City/State/[facility] Co de Phone Number [facility] [address] [place] [address] documented in this encounter Visit Diagnoses Not on filedocumented in this encounter Care Teams Trust Manager Relationship Specialty Start Date End Date Unknown, Provider, PCP - General 09/24/11 09/26/11 documented as of this encounter
--- OUTSIDE RECORDS SUMMARY | 2024-03-17 18:36 | XMS_ITS | Encounter Summary ---
[place] [address] Care Team Providers Care Busboy Name Role Phone Mary Ailce Cage APRN Primary Care Provider Encounter Details Date Type Department Care Team (Late st Contact Info) Description 12/19/2011 External [place] [address] Provider, Scanning Social History Tobacco Use Types [...] Procedure Name Priority Date/Time Associated Diagnosis Comments MICROBIOLOGY SCAN Routine 11/28/2011 documented in this encounter Results * Scan Doc: Microbiology (11/28/2011) 11/28/2011 Scanning Provider MEDIA MGR SCAN EXT O RDR/RSLT documented in this encounter Visit Diagnoses Not on filedocumented in this encounter Care Teams Busboy Relationship Specialty Start Date End Date Mary Alice Cage APRN PCP - General 10/12/11 11/12/18 documented as of this encounter
--- OUTSIDE RECORDS SUMMARY | 2024-03-17 18:36 | XMS_ITS | Encounter Summary ---
[place] [address] Care Team Providers Care Rotor Assembler Name Role Phone [place] Mary Alicepham Drew APRN Primary Care Provider [phone] Reason for Visit * Reason Onset Date Comments Other 12/18/2011 test results Encounter Details Date Type Department Care Team (Late st Contact Info) Description 12/18/2011 Telephone [place] [address] Bhavani Knowles RN Other (test results) Social History Tobacco Use Types Packs/Day Years Used Date Smoking Tobacco: Every Day Cigarettes Smokeless Tobacco: Never Sex and Gender Information Value Date Recorded Sex Assigned at Not on file Gender Identity Not on file Sexual Orientation Not on file documented as of this encounter Miscellaneous Notes * Telephone Encounter - Bhavani Knowles RN - 12/18/2011 10:49 AM EDT Patient calls requesting test results for gastric emptying scan. The test results are normal. Patient indicates understanding of this information. The patient is requesting if any further testing canbe completed before her follow- up visit with Malia Vidal APRN on 12/27/11. The remaining recommendations from follow-up visit with Dr. Keller on 11/09/11 that have not yet been considered: esophageal manometry to determine more generalized motility disordered and/or trialof TCA. The above information will be sent to Malia Vidal APRN. documented in this encounter Plan of Treatment Not on file documented as of this encounter Visit Diagnoses Not on filedocumented in this encounter Care Teams Rotor Assembler Relationship Specialty Start Date End Date Mary Alice Cage APRN PCP - General 10/12/11 11/12/18 documented as of this encounter
--- OUTSIDE RECORDS SUMMARY | 2024-03-17 18:36 | XMS_ITS | Encounter Summary ---
[place] [address] Care Team Providers Care Manufacturing Technician Name Role Phone Mary Alice Cage APRN Primary Care Provider [phone] Reason for Visit * Reason Onset Date Comments Other 12/03/2011 appointment Encounter Details Date Type Department Care Team (Late st Contact Info) Description 12/03/2011 Telephone [place] [address] Bhavani Knowles RN Other (appointment) Social History Tobacco Use Types Packs/Day Years Used Date Smoking Tobacco: Every Day Cigarettes Smokeless Tobacco: Never Sex and Gender Information Value Date Recorded Sex Assigned at Not on file Gender Identity Not on file Sexual Orientation Not on file documented as of this encounter Miscellaneous Notes * Telephone Encounter - Bhavani Knowles RN - 12/03/2011 10:32 AM EDT Called patient. Informed her that gastric emptying scan was ordered for her, per Malia Vidal APRN. Patient also wants an appointment with Malia Vidal APRN. Patient wants a copy of Dr. Keller's office note from November 09, 2011. This was mailed to patient after confirmation of her mailing address. Patient was connected to GI chief crew scheduler to be scheduled for the above mentioned procedure and clinic visit. * Telephone Encounter - Lucia Salvador - 12/03/2011 10:27 AM EDT Per Bhavani, schedule pt for GES and follow up with Malia Vidal. Called patient and lm on m to call the office to schedule. documented in this encounter Plan of Treatment Not on file documented as of this encounter Visit Diagnoses Not on filedocumented in this encounter Care Teams Manufacturing Technician Relationship Specialty Start Date End Date Mary Alice Cage APRN PCP - General 10/12/11 11/12/18 documented as of this encounter
--- OUTSIDE RECORDS SUMMARY | 2024-03-17 18:36 | XMS_ITS | Encounter Summary ---
[place] [address] Care Team Providers Care Brick And Block Mason Name Role Phone WytheMary Alice davis MANUELA Primary Care Provider [phone] Reason for Visit * Reason Onset Date Comments Other 11/30/2011 Encounter Details Date Type Department Care Team (Late st Contact Info) Description 11/30/2011 Telephone [place] [address] Adelaida Walker Other Social History Tobacco Use Types Packs/Day Years Used Date Smoking Tobacco: Every Day Cigarettes Smokeless Tobacco: Never Sex and Gender Information Value Date Recorded Sex Assigned at Not on file Gender Identity Not on file Sexual Orientation Not on file documented as of this encounter Miscellaneous Notes * Telephone Encounter - Adelaida Walker - 11/30/2011 12:00 PM EDT Patient calling to schedule appointments recommended by Dr. Keller, She is having difficulty scheduling the appointments locally and would like to have them here. Unfortunately This typing secretary could not find the appointments suggested. Pt also noted that she has called previous to this to have her [facility], unfortunately this is not in our information system as of yet. Plan with patient: Acquire office note not transcribed and fax to PCP. Once office note available- assist with scheduling suggested appointments... Pt agreeable. documented in this encounter Plan of Treatment Not on file documented as of this encounter Visit Diagnoses Not on filedocumented in this encounter Care Teams Brick And Block Mason Relationship Specialty Start Date End Date Mary Alice Cage APRN PCP - General 10/12/11 11/12/18 documented as of this encounter
--- OUTSIDE RECORDS SUMMARY | 2024-03-17 18:36 | XMS_ITS | Encounter Summary ---
Author Organization [facility] [place] [address] Care Team Providers Care Banquet Prep Cook Name Role Phone SteeleMary Alice davis Rajendra ROY Primary Care Provider Encounter Details Date Type Department Care Team (Late st Contact Info) Description 12/21/2011 Orders [place] [address] Letty Vidal APRN [facility] [place] [address] Abdominal distention (Primary Dx) Social History Tobacco Use Types Packs/Day Years Used Date Smoking Tobacco: Every Day Cigarettes Smokeless Tobacco: Never Sex and Gender Information Value Date Recorded Sex Assigned at Not on file Gender Identity Not on file Sexual Orientation Not on file documented as of this encounter Plan of Treatment Not on file documented as of this encounter Results * US abdomen limited (02/04/2012 8:33 AM EDT) Anatomical Region Laterality Modality Abdomen Ultrasound 02/04/2012 8:33 AM EDT Narrative 02/04/2012 8:38 AM EDT ?Abdominal ? (Signed Final 02/04/2012 08:37 am) Patient Info ID: ? [id number] ? : ??[birth year] (51 yrs) Name: ? POPPY PINO ? Visit Date: 02/04/2012 08:29 am Performed By Performed By: ?Lashawn Daniel RDMS Attending: ? Karli TERRELL, Lucretia Lion Referred By: ? LETTY WORKMAN Service(s) Provided UABDLIM - Abdominal Limited Survey Single ? 25321 Organ or Quadrant - [id number] Indications Chronic Abdominal Distention, ? gallbladder issues [...] Final 02/04/2012 08:37 am) Patient Info ID: [id number] : [birth year] (51 yrs) Name: POPPY PINO Visit Date: 02/04/2012 08:29 am Performed By Performed By: Lashawn Daniel RDMS Attending: Lucretia Calvillo MD Referred By: LETTY WORKMAN Service(s) Provided UABDLIM - Abdominal Limited Survey Single [address]389 Organ or Quadrant - [id number] Indications Chronic Abdominal Distention, ? gallbladder issues [...] to participate in the care of POPPY Del Cid REBECCACHARLES. Please do not hesitate to call if you have any questions. Lucretia Calvillo MD Electronically Signed Final Report 02/04/2012 08:37 am Osmany Overton MD IMG US GEN ORDER DAMARIS documented in this encounter Visit Diagnoses Diagnosis Abdominal distention- Primary Flatulence, eructation, and gas pain Abdominal distention Flatulence, eructation, and gas pain documented in this encounter Care Teams Banquet Prep Cook Relationship Specialty Start Date End Date Mary Alice Cage APRN PCP - General 10/12/11 11/12/18 documented as of this encounter
--- OUTSIDE RECORDS SUMMARY | 2024-03-17 18:36 | XMS_ITS | Encounter Summary ---
Author Organization [facility] [place] [address] Care Team Providers Care Cdc Associate Name Role Phone Mary Alice Cage MANUELA Primary Care Provider Encounter Details Date Type Department Care Team (Latest Contact Info) Description 12/11/2011 9:10 AM EDT - 12/11/2011 11:59 PM EDT Hospital Encounter [place] [phone] CL[address], DR MATEUSZ Keller, Osmany Overton MD [facility] [address] Dyspepsia Discharge Disposition: Home Social History Tobacco Use Types Packs/Day Years Used Date Smoking Tobacco: Every Day Cigarettes Smokeless Tobacco: Never Sex and Gender Information Value Date Recorded Sex Assigned at Not on file Gender Identity Not on file Sexual Orientation Not on file documented as of this encounter Medications at Time of Discharge Medication Sig Dispensed Refills Start Date End Date omeprazole (PRILOSEC) 20 mg capsule Take 20 mg by mouth 2 times daily. 05/26/2012 hydroCODone-acetaminophen (LORTAB) 7.5-500 mg per tablet Take 1 [...] Diagnosis Comments NM GASTRIC EMPTYING SCAN Routine 12/11/2011 1:42 PM EDT Dyspepsia documented in this encounter Results * NM gastric emptying scan (12/11/2011 1:42 PM EDT) Anatomical Region Laterality Modality Other 12/11/2011 1:42 PM EDT Impressions 12/12/2011 12:20 AM EDT IMPRESSION: Normal solid gastric emptying. ?? Film and interpretation reviewed by the attending Narrative 12/12/2011 12:20 AM EDT SOLID GASTRIC EMPTYING SCAN, 12/11/11: INDICATION: ??Dyspepsia. ??Question gastroparesis. ?? COMPARISON: ??None. ? TECHNIQUE: ??A standard solid meal was labeled with 0.5 mCi of technetium-99m sulfur colloid and then ingested by the patient. ??Anterior and posterior images of the abdomen were then obtained immediately, and at one hour, two hours, and four hours later. ??Quantitative analysis was then performed. ??A region of interest was drawn around the stomach and then decay-corrected time-activity plotted. ?? FINDINGS: ??Activity is initially seen within the stomach and then moves into the bowel. ?? At two hours, approximately 16% of the ingested meal remains within the stomach (normal less than 60%). ??At four hours, approximately 3% of the ingested meal remains within the stomach (normal less than 10%). ?? Procedure Note Lucretia Calvillo MD - 12/12/2011 SOLID GASTRIC EMPTYING SCAN, 12/11/11: INDICATION: Dyspepsia. Question gastroparesis. COMPARISON: None. TECHNIQUE: A standard solid meal was labeled with 0.5 mCi oftechnetium-99m sulfur colloid and then ingested by the patient. Anterior and posteriorimages of the abdomen were then obtained immediately, and at one hour, two hours,and four hours later. Quantitative analysis was then performed. A region of interest was drawn around the stomach and then [id number] plotted. FINDINGS: Activity is initially seen within the stomach and then movesinto the bowel. At two hours, approximately 16% of the ingested meal remains within thestomach (normal less than 60%). At four hours, approximately 3% of the ingestedmeal remains within the stomach (normal less than 10%). IMPRESSION IMPRESSION: Normal solid gastric emptying. Film and interpretation reviewed by the attending Osmany Overton MD IMG NM ORDERABLE S documented in this encounter Visit Diagnoses Diagnosis Dyspepsia Dyspepsia and other specified disorders of function of stomach documented in this encounter Care Teams Cdc Associate Relationship Specialty Start Date End Date Mary Alice Cage APRN PCP - General 10/12/11 11/12/18 documented as of this encounter
--- OUTSIDE RECORDS SUMMARY | 2024-03-17 18:36 | XMS_ITS | Referral Summary ---
Author Organization [facility] Address [address] [place] [address] Care Team Providers Care Investigator Vice Name Role Phone Cb Florence PA-C Primary Care Provider + Social History Tobacco Use Types Packs/Day Years Used Date Smoking Tobacco: Never Assessed Sex and Gender Information Value Date Recorded Sex Assigned at Not on file Gender Identity Not on file Sexual Orientation Not on file Plan of Treatment Not on file Care Teams Investigator Vice Relationship Specialty Start Date End Date Cb Florence PA-C [address] [place] [phone] PCP - General 04/24/16
--- OUTSIDE RECORDS SUMMARY | 2024-03-17 18:36 | XMS_ITS | Encounter Summary ---
Author Organization [facility] Address [address] [place] [address] Care Team Providers Care Director Of Construction Name Role Phone Demar Rabago PA-C Primary Care Provider + Encounter Details Date Type Department Care Team ([facility] st Contact Info) Description 05/13/2019 Results Only [facility] [phone] Demar Rabago PA-C [address] [place] [phone] Social History Tobacco Use Types Packs/Day Years Used Date Smoking Tobacco: Never Assessed Sex and Gender Information Value Date Recorded Sex Assigned at Not on file Gender Identity Not on file Sexual Orientation Not on file documented as of this encounter Plan of Treatment Not on file documented as of this encounter Procedures Procedure Name Priority Date/Time Associated Diagnosis Comments PAP TEST- RESULT ONLY Routine 05/13/2019 0:00 EDT documented in this encounter Results * PAP TEST- RESULT ONLY (05/13/2019 0:00 EDT) Pathology Report: CYTOPATHOLOGY REPORT Reports generated via electronic interface contain original data; however they are lacking the format of the original report. Caution should be taken when reading/interpreti ng unformatted reports. Name: ? AGGIE IPNOE ? Accession #: ? [id number] ? : ? 1960 (Age: 58) ??F ?Collect Date: ? 05/13/2019 ? Location: ? [facility] ? Receive Date: ? 05/15/2019 ? Provider: DEMAR RABAGO PA-C Copy to: ? Final Report SPECIMEN ADEQUACY ? Satisfactory for Evaluation - transformation zone component absent GENERAL CATEGORIZATION ? Negative for Intraepithelial Lesion or Malignancy ?? Specimen/Source: ??Pap Test, Cervix/Endocervix, ThinPrep Imaging System with manual evaluation Document reviewed and electronically signed by: ? ZOIE Mayes(ASCP) ? Report ??Date: 05/18/2019 15:07 HPV with Pap Test ? Date Ordered: ? 05/18/2019 ? Status: ?? Signed Out ?Date Complete: ? 05/19/2019 ? By: ??System Interface ? Date Reported: ? 05/19/2019 ? Interpretation RESULT: Negative for HPV. No E6 or E7 mRNA is detected from HPV types 16,18,31,33,35, 39,45,51,52,56,58, 59,66, and 68 by soda fountain clerk mediated amplification. Comments Document reviewed and electronically signed by: ? System Interface ? Report date: 05/19/2019 By the signature above, the attending physician certifies that he/she has personally conducted a gross and/or microscopic examination of the described specimens and rendered or confirmed the above diagnosis. End of Report [facility] 05/13/2019 05/15/2019 Demar Rabago PA-C PATHOLOGY ORDERA KAYLEY [facility] [address] [place] [address] documented in this encounter Visit Diagnoses Not on filedocumented in this encounter Care Teams Director Of Construction Relationship Specialty Start Date End Date Demar Rabago PA-C [address] [place] [id number] PCP - General 04/24/16 documented as of this encounter
--- OUTSIDE RECORDS SUMMARY | 2024-03-17 18:36 | XMS_ITS | Encounter Summary ---
[place] [address] Care Team Providers Care Pens And Pencils Repairer Name Role Phone GuánicaMary Alice davis Rajendra ROY Primary Care Provider [phone] Reason for Visit * Reason Onset Date Comments Other 12/20/2011 Abdominal disten tion Encounter Details Date Type Department Care Team (Late st Contact Info) Description 12/20/2011 Telephone [place] [phone] Bhavani Knowles RN Other (Abdominal distention) Social History Tobacco Use Types Packs/Day Years Used Date Smoking Tobacco: Every Day Cigarettes Smokeless Tobacco: Never Sex and Gender Information Value Date Recorded Sex Assigned at Not on file Gender Identity Not on file Sexual Orientation Not on file documented as of this encounter Miscellaneous Notes * Telephone Encounter - Bhavani Knowles RN - 12/20/2011 11:45 AM EDT Called patient to discuss the followin. Consider fodmap, probiotics. If she has a gallbladder, abdominal U/S. 2. If current ppi not working, could try another. 3. If bowel issues, report them. Patient currently has the following symptoms: Daily reflux, Heartburn and ABD bloating. BM's: constipated, has BM every two days, no blood, no mucous. Patient is agreeable to doing an abdominal U/S. She will consider probiotic Align, FODMAP diet and GERD lifestyle and diet fact sheet. Will request from Malia Vidal APRN an order for abdominal U/S and for different PPI. The above information was sent to Malia Vidal. documented in this encounter Plan of Treatment Not on file documented as of this encounter Visit Diagnoses Not on filedocumented in this encounter Care Teams Pens And Pencils Repairer Relationship Specialty Start Date End Date Mary Alice Cage APRN PCP - General 10/12/11 11/12/18 documented as of this encounter
--- OUTSIDE RECORDS SUMMARY | 2024-03-17 18:36 | XMS_ITS | Encounter Summary ---
[place] [address] Care Team Providers Care Roper Operator Name Role Phone ClarendonMary Alice davis MANUELA Primary Care Provider [phone] Reason for Visit * Reason Onset Date Comments Other 11/27/2011 Request for pain medicine Encounter Details Date Type Department Care Team (Late st Contact Info) Description 11/27/2011 Telephone [place] [address] Bhavani Knowles RN Other (Request for pain medicine) Social History Tobacco Use Types Packs/Day Years Used Date Smoking Tobacco: Every Day Cigarettes Smokeless Tobacco: Never Sex and Gender Information Value Date Recorded Sex Assigned at Not on file Gender Identity Not on file Sexual Orientation Not on file documented as of this encounter Miscellaneous Notes * Telephone Encounter - Bhavani Knowles RN - 11/27/2011 8:51 AM EDT Return call to patient regarding request for pain medicine. Patient unavailable for discussion. Left voice mail message on ID'd phone with GI clinic phone number: [phone]. Note the following per Dr. Keller's note from patient's visit with him on 11/09/11: GERD, with symptoms consistent with possible gastroparesis. [...] celiac. Over 60 minutes spent in direct norn-sj-bfpj discussion of symptoms and planning further management. documented in this encounter Plan of Treatment Not on file documented as of this encounter Visit Diagnoses Not on filedocumented in this encounter Care Teams Roper Operator Relationship Specialty Start Date End Date Mary Alice Cage APRN PCP - General 10/12/11 11/12/18 documented as of this encounter
--- OUTSIDE RECORDS SUMMARY | 2024-03-17 18:36 | XMS_ITS | Encounter Summary ---
[place] [address] Care Team Providers Care Dry Starch Supervisor Name Role Phone NilesCariepham Drew APRN Primary Care Provider [phone] Reason for Visit * Reason Onset Date Comments Prior Authorization 12/24/2011 Dexilant Encounter Details Date Type Department Care Team (Late st Contact Info) Description 12/24/2011 Telephone [place] [phone] Debbie Skinner RNasphalt blender (Dexilant) Social History Tobacco Use Types Packs/Day Years Used Date Smoking Tobacco: Every Day Cigarettes Smokeless Tobacco: Never Sex and Gender Information Value Date Recorded Sex Assigned at Not on file Gender Identity Not on file Sexual Orientation Not on file documented as of this encounter Miscellaneous Notes * Telephone Encounter - Instructor Young, KAMLA - 12/26/2011 12:06 PM EDT Yes, 20mg qd, #30 prn refills * Telephone Encounter - Debbie Skinner CMA - 12/24/2011 2:25 PM EDT Medication: Dexilant Dosage: 60 mg Frequency & Route: take one by mouth daily Pharmacy & Phone#: Insurance & Phone #: [facility] [phone] ID #: [id number] Trialed (dosage, frequency): Approved medications: Next Step: Notes: PA denied-pt needs to have a trial of Aciphex. Would you like me to go ahead and order that? documented in this encounter Plan of Treatment Not on file documented as of this encounter Visit Diagnoses Not on filedocumented in this encounter Care Teams Dry Starch Supervisor Relationship Specialty Start Date End Date Mary Alice Cage APRN PCP - General 10/12/11 11/12/18 documented as of this encounter
--- OUTSIDE RECORDS SUMMARY | 2024-03-17 18:36 | XMS_ITS | Clinical Summary ---
Author Organization [facility] Address [address] [place] [address] Care Team Providers Care Small Arms Repairer Name Role Phone Cb Florence PA-C Primary Care Provider + Social History Tobacco Use Types Packs/Day Years Used Date Smoking Tobacco: Never Assessed Sex and Gender Information Value Date Recorded Sex Assigned at Not on file Gender Identity Not on file Sexual Orientation Not on file Plan of Treatment Health Maintenance Due Date Last Done Comments Hepatitis C Screen 1960 RSV Immunization ( o r 60+ Years) (1 - 1-dose 60+ series) 2022 COVID-19 Vaccine (2022-24 season) 2023 Care Teams Small Arms Repairer Relationship Specialty Start Date End Date Cb Florence PA-C [address] [place] [address] PCP - General 04/24/16
--- OUTSIDE RECORDS SUMMARY | 2024-03-17 18:36 | XMS_ITS | Encounter Summary ---
Author Organization [facility] [address] [place] [address] Care Team Providers Care Truck Body Builder Apprentice Name Role Phone GadsdenMary Alice davis Rajendra ROY Primary Care Provider [phone] Reason for Visit * Reason Onset Date Comments Medication Refill 12/03/2011 Encounter Details Date Type Department Care Team (Late st Contact Info) Description 12/03/2011 Ref[place] [address] Malia Vidal NUCLEAR POWER PLANT ENGINEER [facility] [place] [address] Dyspepsia (Primary Dx) Social History Tobacco Use Types Packs/Day Years Used Date Smoking Tobacco: Every Day Cigarettes Smokeless Tobacco: Never Sex and Gender Information Value Date Recorded Sex Assigned at Not on file Gender Identity Not on file Sexual Orientation Not on file documented as of this encounter Plan of Treatment Not on file documented as of this encounter Results * NM gastric emptying [...] was drawn around the stomach and then fxxyh-ipqgyzdqyecoa-hjayzyai plotted. FINDINGS: Activity is initially seen within [...] documented in this encounter Visit Diagnoses Diagnosis Dyspepsia- Primary Dyspepsia and other specified disorders of function of stomach Dyspepsia Dyspepsia and other specified disorders of function of stomach documented in this encounter Care Teams Truck Body Builder Apprentice Relationship Specialty Start Date End Date Mary Alcie Cage APRN PCP - General 10/12/11 11/12/18 documented as of this encounter
--- OUTSIDE RECORDS SUMMARY | 2024-03-17 18:36 | XMS_ITS | Encounter Summary ---
Author Organization [facility] [place] [address] Care Team Providers Care Surgical Assist Name Role Phone Mary Alice Cage APRN Primary Care Provider [phone] Reason for Visit * Reason Onset Date Comments Medication Refill 12/21/2011 Encounter Details Date Type Department Care Team (Late st Contact Info) Description 12/21/2011 Refill [place] [address] Malia Vidal POLICE STENOGRAPHER [facility] [place] [address] Social History Tobacco Use Types Packs/Day Years [...] on filedocumented in this encounter Care Teams Surgical Assist Relationship Specialty Start Date End Date Mary Alice Cage APRN PCP - General 10/12/11 11/12/18 documented as of this encounter
--- OUTSIDE RECORDS SUMMARY | 2024-03-17 18:36 | XMS_ITS | Encounter Summary ---
Author Organization [facility] Address [address] [place] [address] Care Team Providers Care Rn Flight Name Role Phone Erika Saavedra MD Primary Care Provider [phone] Encounter Details Date Type Department Care Team (Latest Contact Info) Description 04/17/2016 11:34 EDT - 04/17/2016 23:59 EDT Hospital Encounter [address] [address] Unknown, Provider, Discharge Disposition: Auto Discharge Social History Tobacco Use Types Packs/Day Years Used Date Smoking Tobacco: Never Assessed Sex and Gender Information Value Date Recorded Sex Assigned at Not on file Gender Identity Not on file Sexual Orientation Not on file documented as of this encounter Discharge Disposition Disposition Code Departure Means Destination Auto Discharge Home documented in this encounter Plan of Treatment Not on file documented as of this encounter Visit Diagnoses Not on filedocumented in this encounter Care Teams Rn Flight Relationship Specialty Start Date End Date Erika Saavedra MD [address] [place] [address] PCP - General 09/27/11 04/23/16 documented as of this encounter
--- OUTSIDE RECORDS SUMMARY | 2024-03-17 18:36 | XMS_ITS | Encounter Summary ---
[place] [address] Care Team Providers Care Press Helper Name Role Phone Mary Alice Cage APRN Primary Care Provider [phone] Reason for Visit * Reason Onset Date Comments Other 11/19/2011 Encounter Details Date Type Department Care Team (Late st Contact Info) Description 11/19/2011 Telephone [place] [phone] Lucia Cui Other Social History Tobacco Use Types Packs/Day Years Used Date Smoking Tobacco: Every Day Cigarettes Smokeless Tobacco: Never Sex and Gender Information Value Date Recorded Sex Assigned at Not on file Gender Identity Not on file Sexual Orientation Not on file documented as of this encounter Miscellaneous Notes * Telephone Encounter - Lucia Salvador - 11/19/2011 10:08 AM EDT Edi Kaplan, Can you please transcribe Dr. Keller's office note from 11/08 and fax over to patient's PCP, Mary Alice Cage NP? Thank you!! documented in this encounter Plan of Treatment Not on file documented as of this encounter Visit Diagnoses Not on filedocumented in this encounter Care Teams Press Helper Relationship Specialty Start Date End Date Mary Alice Cage APRN PCP - General 10/12/11 11/12/18 documented as of this encounter
--- OUTSIDE RECORDS SUMMARY | 2024-03-17 18:36 | XMS_ITS | Encounter Summary ---
Author Organization [facility] [address] Care Team Providers Care Case Finishing Machine Adjuster Name Role Phone Mary Alice Cage APRN Primary Care Provider [phone] Reason for Visit * Reason Onset Date Comments Medication Refill 12/24/2011 Encounter Details Date Type Department Care Team (Late st Contact Info) Description 12/24/2011 Refill [place] [address] Malia Vidal JORDAN WORKER [facility] DR [place]STRO[place] [address] Social History Tobacco Use Types Packs/Day Years [...] on filedocumented in this encounter Care Teams Case Finishing Machine Adjuster Relationship Specialty Start Date End Date Mary Alice Cage APRN PCP - General 10/12/11 11/12/18 documented as of this encounter
--- OUTSIDE RECORDS SUMMARY | 2024-03-17 18:36 | XMS_ITS | Encounter Summary ---
Author Organization [facility] Address [address] [place] [address] Care Team Providers Care Reinforced Concrete Inspector Name Role Phone Radha Gan MD Primary Care Provider [phone] Encounter Details Date Type Department Care Team (Late st Contact Info) Description 11/28/2011 Results Only [facility] [phone] Radha Gan MD [address] [place], [place] [id number] Social History Tobacco Use Types Packs/Day Years Used Date Smoking Tobacco: Never Assessed Sex and Gender Information Value Date Recorded Sex Assigned at Not on file Gender Identity Not on file Sexual Orientation Not on file documented as of this encounter Plan of Treatment Not on file documented as of this encounter Procedures Procedure Name Priority Date/Time Associated Diagnosis Comments SURGICAL PATHOLOGY Routine 11/28/2011 0:00 EDT documented in this encounter Results * SURGICAL PATHOLOGY (11/28/2011 0:00 EDT) Pathology Report: SURGICAL PATHOLOGY REPORT Reports generated via electronic interface contain original data; however they are lacking the format of the original report. Caution should be taken when reading/interpreting unformatted reports. Name: ? AGGIE PINOE ? Accession #: ? [id number] ? : ? 1960 (Age: 51) ??F ? Collect Date: ? 11/28/2011 ? Location: ? [facility] ? Receive Date: ? 11/29/2011 ? Provider: RADHA GAN MD Copy to: ? Final Pathologic Diagnosis: ? Skin of gluteal cleft, right, shave biopsy: - Condyloma acuminatum. ??See comment. Comment: ? Dr. Jeff Cardenas has reviewed this case and concurs with the diagnosis. (Dr. Salmon)/[facility] Microscopic Description: ? There is orthohyperkeratosis with foci of parakeratosis. ??The epidermis is acanthotic with low papillomatosis and anastomosing rete ridges. ??The superficial keratinocytes show variable degrees of perinuclear vacuolization and nuclear hyperchromasia. ??(Dr. Salmon)/[facility] Document reviewed and electronically signed by: ZAYRA SALMON MD Report ??Date: 12/03/2011 16:43 By the signature above, the attending physician certifies that he/she has personally conducted a gross and/or microscopic examination of the described specimens and rendered or confirmed the above diagnosis. Specimen(s) Received: ? 1.0 cm fleshy growth with filiform appearance Clinical History: ? Fleshy new growth R gluteal cleft Gross Description: ? Received in formalin labelled Gonyer, Poppy and skin tag is a 1.0 x 0.8 x 0.4 cm, irregular, majano-white nodule. ??The margin is inked. ??The specimen is serially sectioned and entirely submitted as (A1) and (A2).(Judi Bradford/lgk End of Report IRASEMA SANCHEZ 11/28/2011 11/29/2011 9:1 2 EDT Radha Gan MD PATHOLOGY ORDERABLES Performing Organization Address City/State/[facility] Co de Phone Number IRASEMA SANCHEZ [address] [place] [address] documented in this encounter Visit Diagnoses Not on filedocumented in this encounter Care Teams Reinforced Concrete Inspector Relationship Specialty Start Date End Date Radha Gan MD [address] [place] [address] PCP - General 09/27/11 04/23/16 documented as of this encounter
--- OUTSIDE RECORDS SUMMARY | 2024-03-17 18:36 | XMS_ITS | Encounter Summary ---
[place] [address] Care Team Providers Care Youth Ministry Director Name Role Phone BlandMary Alice davis MANUELA Primary Care Provider [phone] Reason for Visit * Reason Onset Date Comments Other 12/03/2011 Celiac Disease, tTG Encounter Details Date Type Department Care Team (Late st Contact Info) Description 12/03/2011 [place] [phone] Bhavani Knowles RN Other (Celiac Disease, tTG) Social History Tobacco Use Types Packs/Day Years Used Date Smoking Tobacco: Every Day Cigarettes Smokeless Tobacco: Never Sex and Gender Information Value Date Recorded Sex Assigned at Not on file Gender Identity Not on file Sexual Orientation Not on file documented as of this encounter Miscellaneous Notes * Telephone Encounter - Bhavani Knowles RN - 12/03/2011 9:14 AM EDT Return call to patient. She states that she has been trying to call weekly, regarding appointments. The last phone call received by patient involved her request for Lortab. Patient revealed frustration regarding these appointments because she hasn't been able to schedule them. It was discoveredwith more conversation with the patient that she is referring to her need for a gastric emptying scan. A request for this procedure will be made with Malia Vidal. Patient is aware. Confirmed with patient that she is no longer taking Lortab. She states she is now taking Amitriptyline. Patient is crying during our phone conversation. The patient's PCP office has been contacted to confirm that the patient is not on Lortab. The above information will be sent to Malia Vidal APRN. documented in this encounter Plan of Treatment Not on file documented as of this encounter Visit Diagnoses Not on filedocumented in this encounter Care Teams Youth Ministry Director Relationship Specialty Start Date End Date Mary Alice Cage APRN PCP - General 10/12/11 11/12/18 documented as of this encounter
--- OUTSIDE RECORDS SUMMARY | 2024-03-17 18:36 | XMS_ITS | Encounter Summary ---
Author Organization [facility] Address [address] [place] [address] Care Team Providers Care Air Cargo Specialist Name Role Phone Erika Saavedra MD Primary Care Provider [phone] Encounter Details Date Type Department Care Team (Late st Contact Info) Description 04/17/2016 Results Only [facility] [phone] Carmella Aguilera, [address] [place] [address] Social History Tobacco Use Types Packs/Day Years Used Date Smoking Tobacco: Never Assessed Sex and Gender Information Value Date Recorded Sex Assigned at Not on file Gender Identity Not on file Sexual Orientation Not on file documented as of this encounter Plan of Treatment Not on file documented as of this encounter Procedures Procedure Name Priority Date/Time Associated Diagnosis Comments SURGICAL PATHOLOGY Routine 04/17/2016 21 :06 EDT documented in this encounter Results * SURGICAL PATHOLOGY (04/17/2016 21:06 EDT) Pathology Report: SURGICAL PATHOLOGY REPORT Reports generated via electronic interface contain original data; however they are lacking the format of the original report. Caution should be taken when reading/interpret ing unformatted reports. Name: ? POPPY PINO ? Accession #: ? [id number] ? : ? 1960 (Age: 55) ??F ? Collect Date: ? 04/17/2016 ? Location: ? [facility] ? Receive Date: ? 04/19/2016 ? Provider: CARMELLA AGUILERA DO Copy to: DEMAR RABAGO PA-C ? Final Pathologic Diagnosis: A. ??SKIN OF EYELID, LEFT LOWER, SHAVE BIOPSY: - Seborrheic keratosis, pigmented. ?? B. ??SKIN OF EYELID, RIGHT LOWER, SHAVE BIOPSY: - Seborrheic keratosis, pigmented. ?? Microscopic Description: The stratum corneum is thickened by compact and basketweave orthokeratosis with formation of horn pseudocysts. ??The epidermis is acanthotic with formation of broad and anastomosing trabeculae. ??The trabeculae are composed of basaloid keratinocytes with round uniform nuclei. ??The keratinocytes have a variable amount of melanin pigment. ??(Dr. Salmon)/n Document reviewed and electronically signed by: ZAYRA SALMON MD Report ??Date: 04/23/2016 14:48 By the signature above, the attending physician certifies that he/she has personally conducted a gross and/or microscopic examination of the described specimens and rendered or confirmed the above diagnosis. Specimen(s) Received: A. ??Left lower eyelid B. ??Right lower eyelid Clinical History: Bothersome eyelid skin lesions; clinical diagnosis code: ??D49.2 Gross Description: A. ?Received in formalin labelled with proper patient identification (initials G, V) and left lower eyelid is a shave biopsy of a zuniga-pink granular papule (0.4 x 0.3 x 0.3 cm). The specimen is submitted entirely in A1. B. ?Received in formalin labelled with proper patient identification (initials G, V) and right lower eyelid is a shave biopsy of a zuniga-brown macule (0.2 x 0.2 x 0.1 cm). The specimen is submitted entirely in B1. KIARA Chowdhury (ASCP) 04/20/2016 9:17 AM End of Report [facility] 04/17/2016 21:0 6 EDT 04/19/2016 21:06 EDT Carmella Aguilera DO PATHOLOGY ORDER DAMARIS [facility] [address] [place] [address] documented in this encounter Visit Diagnoses Not on filedocumented in this encounter Care Teams Air Cargo Specialist Relationship Specialty Start Date End Date Erika Saavedra MD [address] [place] [address] PCP - General 09/27/11 04/23/16 documented as of this encounter
[2024-03-17 19:16] LABS: Hemoglobin A1C 5.3 % (<5.7)
== END 2024-03-17 18:22 | disposition home or self-care (01) ==
LOC: NCHCN 18:21
PROVIDERS: PCP Physician Assistant Medical; Visit Provider Physician Assistant Medical
DX: R73.03 Prediabetes (principal); E78.5 Hyperlipidemia, unspecified; K76.0 Fatty (change of) liver, not elsewhere classified
CPT/HCPCS: 80053; 80061; 83036; 85025

== ENCOUNTER → 2024-03-19 10:46 | Outpatient (BNVA) | payer MEDICARE, OTHER, MEDICAID, SELFPAY | PROVIDERS: PCP Physician Assistant Medical; Referring Provider Physician Assistant Medical | DX: Z47.89 Encounter for other orthopedic aftercare (principal); M25.541 Pain in joints of right hand ==

== ENCOUNTER 2024-06-15 10:24 | Outpatient (REF) | payer MEDICARE, OTHER, MEDICAID, SELFPAY ==
--- OUTSIDE RECORDS SUMMARY | 2024-06-15 10:26 | XMS_ITS | Encounter Summary ---
[place] [address] Care Team Providers Care Public Affairs Director Name Role Phone Cb Florence Primary Care Provider +1- [phone] Reason for Referral * Physical Therapy (Routine) - Closed Specialty Diagnoses / Procedures Referred By Chava alejo Referred To Contact Physical Therapy Diagnoses Status post lumbar spinal fusion Rios Acuna MD [facility] [place] [address] Rehab, [address] [address] Referral ID Status Reason Start Date Expiration Date V isits Requested Visits Authorized [id number] Closed Evaluate and Treat 10/09/2021 04/07/2022 1 1 Reason for Visit * Reason Comments Follow Up Surgery Encounter Details Date Type Department Care Team (Latest Contact Info) Description 10/09/2021 10:00 AM EST Office Visit [facility] [place] [address] Rios Acuna MD [facility] [place] [address] s/p Right L4-5 hemilaminectomy and L4-S1 instrumented [...] who have questions please contact the health dog day care attendant that requested your imaging first. ? Narrative [...] patients who have questions please contactthe health dog day care attendant that requested your imaging first. Electronically signed by: [facility]I RICHTER [facility]([phone]), at 07/20/2022 1:52 PM Rios Acuna MD IMG DX ORDERABLES documented in this encounter Visit Diagnoses Diagnosis s/p Right L4-5 hemilaminectomy and L4-S1 instrumented fusion on 07/11/21 (Dr. Acuna) Arthrodesis status s/p Right L4-5 hemilaminectomy and L4-S1 instrumented fusion on 07/11/21 (Dr. Acuna) Arthrodesis status documented in this encounter Care Teams Public Affairs Director Relationship Specialty Start Date End Date Cb Florence PA [address] [place] [address] PCP - General Family Medicine 04/08/20 documented as of this encounter
--- OUTSIDE RECORDS SUMMARY | 2024-06-15 10:26 | XMS_ITS | Clinical Summary ---
Author Organization [facility] Address [facility] [place] [address] Care Team Providers Care Plane Tender Name Role Phone Cb Florence Primary Care Provider +1- [phone] Allergies Active Allergy Reactions Criticality Noted Date [...] Inhalational Spacing Device Spcr 2 puffs by [facility].(Non-Drug; Combo Route) route daily. Active albuterol (PROVENTIL [...] CLASSIC OXYGEN CONCENTRATOR MISC) 3 L by [facility].(Non-Drug; Combo Route) route nightly. Active chlorpheniramine (CHLOR-TRIMETON) [...] Active guaiFENesin 600 mg Tablet Extended Release 12hrIndications:CASE SEALER D, moderate Take 1 tablet by mouth [...] ONCE DAILY 03/17/2021 Active Narcan 4 mg/actuation [place], Non-Aerosol ADMINISTER A SINGLE SPRAY INTRANASALLY INTO [...] HIV screen 1980 Hepatitis C Screening 1980 Tetanus/Diphtheria/Pertussis Vaccines (1 - Tdap) 1981 HPV test 1992 PAP Smear 1992 Breast Cancer Share Decision Needed 2002 Breast Cancer screening 2002 Zoster vaccine (1 of 2) 2012 Advance Directive 2017 Covid-19 Vaccine (1 - 2022-2 4 season) 2024 Influenza (Flu) vaccine (1 o f 1 - Influenza standard series) 04/12/2024 Diabetes Screening (HgbA1C o r Glucose) 07/14/2024 07/14/2021, 07/13/2021, 07/12/2021, Additional history exists Medical Devices Implanted Type Area Preparation Supervisor Device Identifier Shelf Expiration Date Model / Serial / Lot Allograft,Bne,Cer v,7mm ([id number]) (Autoreq) - [id number] Implanted:Qty: 1 on 09/08/2013 by Rios Acuna MD at [facility] IMPLANTS DO NOT USE [employer] - [id number] 10/08/2017 835.207 / / [id number] Allograft,Bne,Cer v,7mm ([id number]) (Autoreq) - [id number] Implanted:Qty: 1 on 09/08/2013 by Rios Acuna MD at [facility] IMPLANTS DO NOT USE [employer] - [id number] 11/14/2015 835.207 / / [id number] Plate,Prvdce,Cerv ,2-Lvl,30mm ([id number]) (Autoreq) - [id number] Implanted:Qty: 1 on 09/08/2013 by Rios Acuna MD at [facility] IMPLANTS DO NOT USE [employer] - [id number] 150.230 / / Screw,Prvdce,Jason, Stap,4.2x14mm ([id number]) (Autoreq) - [id number] Implanted:Qty: 6 on 09/08/2013 by Rios Acuna MD at [facility] IMPLANTS DO NOT USE [employer] - [id number] 150.814 / / Anderson Spinal 5.5x60mm Lumbar Prebent Ti ([id number]) (Autoreq) - [id number] Implanted:Qty: 2 on 07/11/2021 by Rios Acuna MD at [facility] IMPLANTS Spine Lumbar [employer] 1119.7060 / / End Cap Spinal 5.5mm Thoracolumbar Locking Ti ([id number]) (Autoreq) - [id number] Implanted:Qty: 6 on 07/11/2021 by Rios Acuna MD at [facility] IMPLANT[employer] Spine Lumbar [employer] 1119.0000 / / Screw Spinal 6.5x40mm Pedicle Plaxl Thread Sld ([id number]) (Autoreq) - [id number] Implanted:Qty: 2 on 07/11/2021 by Rios Acuna MD at [facility] IMPLANTS Spine Lumbar [employer] 5119.1640 / / Screw Spinal 6.5x45mm Pedicle Plaxl Thread Sld ([id number]) (Autoreq) - [id number] Implanted:Qty: 3 on 07/11/2021 by Rios Acuna MD at [facility] IMPLANT[employer] Spine Lumbar [employer] 5119.1645 / / Screw Spinal 6.5x50mm Pedicle Plaxl Thread Sld ([id number]) ([employer]oreq) - [id number] Implanted:Qty: 1 on 07/11/2021 by Rios Acuna MD at [facility] IMPLANTS Spine Lumbar [employer] 5119.1650 / / Explanted Type Area Preparation Supervisor Device Identifier Shelf Expiration Date Model / Serial / Lot Screw,Disctn,1 4mm ([id number]) - [id number] Explanted:Qty: 2 on 09/08/2013 at [facility] IMPLANTS [employer] - [id number] / / Procedures Procedure Name Priority Date/Time Associated Diagnosis Comments HC VENIPUNCTURE Routine 07/14/2021 11:33 AM EST from Last 3 Months or Most Recently Relevant to Health Maintenance Results * Basic Metabolic Panel (non-fasting) (07/14/2021 11:33 AM EST) [facility] Glucose 115 65 - 199 mg/dL [facility] Comment:Diabetes: >=200 mg/d L plus symptoms Blood Urea Nitrogen 16 8 - 18 mg/dL [facility] Creatinine 0.96 0.70 - 1.20 mg/dL [facility] Sodium 137 135 - 145 mmol/L [facility] Potassium 4.4 3.5 - 5.0 mmol/L [facility] Comment: Please note: ??Patients with WBC >100,000 may have falsely elevated Potassium levels. ??For accurate Potassium quantification in these patients send serum separator tube (gold top) for subsequent determinations. ??Contact the Clinical Chemistry Laboratory if there are any questions. Chloride 99 98 - 107 mmol/L [facility] Carbon Dioxide 27 22 - 31 mmol/L [facility] Anion Gap 11 5 - 15 mmol/L [facility] Calcium 9.8 8.5 - 10.5 mg/dL [facility] Est Glomerular Filtration Rate 65 >=60 mL/min/1. 73 m?? [facility] Comment: This patient? s estimated glomerular [...] Lab Jane León APRN CHEMISTRY ORDERABLE S [facility] [place] [address] from Last 3 Months or Most Recently [...] 3:22 PM 09/09/2013 7:12 PM Care Teams Plane Tender Relationship Specialty Start Date End Date Cb Florence PA [address] [place] [address] PCP - General Family Medicine 04/08/20
--- OUTSIDE RECORDS SUMMARY | 2024-06-15 10:26 | XMS_ITS | Encounter Summary ---
Author Organization [facility] Address [facility] [place] [address] Care Team Providers Care Ad Writer Name Role Phone Cb Florence Primary Care Provider +1- [phone] Encounter Details Date Type Department Care Team (Latest Contact Info) Description 10/09/2021 8:46 AM EST - 10/09/2021 11:59 PM [facility] Hospital Encounter XRay at [address] [place] [address] Rios Acuna MD [facility] [place] [address] s/p Right L4-5 hemilaminectomy and L4-S1 instrumented [...] MOUTH ONCE DAILY 03/17/2021 Narcan 4 mg/actuation [place], Non-Aerosol ADMINISTER A SINGLE SPRAY INTRANASALLY INTO [...] CLASSIC OXYGEN CONCENTRATOR MISC) 3 L by [facility]Non-Drug; Combo Route) route nightly. diphenoxylate-atropine (LOMOTIL) 2.5-0.025 mg Tablet Take 1 tablet by mouth 4 times daily. DO NOT restarted this unless you are having diarrhea. 120 tablet 7 06/11/2014 albuterol (PROVENTIL HFA;VENTOLIN HFA) 90 mcg/actuation HFA Aerosol Inhaler Inhale 2 puffs into the lungs every 4 hours as needed. Use with spacer Inhalational Spacing Device Spcr 2 puffs by [facility].(Non-Drug; Combo Route) route daily. [...] who have questions please contact the health health care coach that requested your imaging first. ? Narrative [...] patients who have questions please contactthe health health care coach that requested your imaging first. Rios Acuna MD IMG DX ORDERABLES documented in this encounter Visit Diagnoses Diagnosis s/p Right L4-5 hemilaminectomy and L4-S1 instrumented fusion on 07/11/21 (Dr. Acuna) Arthrodesis status documented in this encounter Care Teams Ad Writer Relationship Specialty Start Date End Date Cb Florence PA [address] [place] [address] PCP - General Family Medicine 04/08/20 documented as of this encounter
--- OUTSIDE RECORDS SUMMARY | 2024-06-15 10:26 | XMS_ITS | Encounter Summary ---
[place] [address] Care Team Providers Care Toy Packer Name Role Phone Cb Florence Primary Care Provider +1- [phone] Encounter Details Date Type Department Care Team (Late st Contact Info) Description 12/29/2021 Telephone [place] [id number] Regine Child Social History Tobacco Use Types [...] on filedocumented in this encounter Care Teams Toy Packer Relationship Specialty Start Date End Date Cb Florence PA [address] [place], [place] [id number] PCP - General Family Medicine 04/08/20 documented as of this encounter
--- OUTSIDE RECORDS SUMMARY | 2024-06-15 10:26 | XMS_ITS | Encounter Summary ---
Author Organization [facility] [address] Care Team Providers Care Dry Paste Supervisor Name Role Phone Cb Florence Primary Care Provider +1- [phone] Encounter Details Date Type Department Care Team (Latest Contact Info) Description 07/19/2022 4:20 PM EST Office Visit [place] [address] Rios Acuna MD [facility] [place] [address] s/p Right L4-5 hemilaminectomy and L4-S1 instrumented [...] right L4- L5 hemilami with complete facetectomy, [id number] Patient accompanied by: Tabber or pocket talker required? no Pain Score [...] indicated she may call Dr. Hartman in [facility]. She has seen him in the past. [...] status documented in this encounter Care Teams Dry Paste Supervisor Relationship Specialty Start Date End Date Cb Florence PA [address] [place] [address] PCP - General Family Medicine 04/08/20 documented as of this encounter
--- OUTSIDE RECORDS SUMMARY | 2024-06-15 10:26 | XMS_ITS | Encounter Summary ---
Author Organization [facility] Address [facility] [place] [address] Care Team Providers Care Cardiac Cath Lab Radiology Technologist Name Role Phone Cb Florence Primary Care Provider +1- [phone] Encounter Details Date Type Department Care Team (Latest Contact Info) Description 07/19/2022 3:16 PM EST - 07/19/2022 11:59 PM [facility] Hospital Encounter XRay at [address] [place] [address] Rios Acuna MD [facility] [place] [address] s/p Right L4-5 hemilaminectomy and L4-S1 instrumented [...] MOUTH ONCE DAILY 03/17/2021 Narcan 4 mg/actuation [place], Non-Aerosol ADMINISTER A SINGLE SPRAY INTRANASALLY INTO [...] Inhalational Spacing Device Spcr 2 puffs by [facility].(Non-Drug; Combo Route) route [...] questions please contact the health day care attendant that requested your imaging [...] have questions please contactthe health day care attendant that requested your imaging first. Rios Acuna MD IMG DX ORDERABLES documented in this encounter Visit Diagnoses Diagnosis s/p Right L4-5 hemilaminectomy and L4-S1 instrumented fusion on 07/11/21 (Dr. Acuna) Arthrodesis status documented in this encounter Care Teams Cardiac Cath Lab Radiology Technologist Relationship Specialty Start Date End Date Cb Florence PA [address] [place] [address] PCP - General Family Medicine 04/08/20 documented as of this encounter
--- OUTSIDE RECORDS SUMMARY | 2024-06-15 10:26 | XMS_ITS | Encounter Summary ---
[place] [address] Care Team Providers Care Tongue Binder Name Role Phone Cb Florence Primary Care Provider +1- [phone] Encounter Details Date Type Department Care Team (Late st Contact Info) Description 01/12/2022 Telephone [place] [address] Daniela Singh Social History Tobacco Use Types [...] on filedocumented in this encounter Care Teams Tongue Binder Relationship Specialty Start Date End Date Cb Florence PA [address] [place], [place] [address] PCP - General Family Medicine 04/08/20 documented as of this encounter
--- OUTSIDE RECORDS SUMMARY | 2024-06-15 10:26 | XMS_ITS | Encounter Summary ---
[place] [address] Care Team Providers Care Box Worker Name Role Phone Cb Florence Primary Care Provider +1- [phone] Encounter Details Date Type Department Care Team (Late st Contact Info) Description 07/31/2021 Telephone [facility] [place] [address] Agueda Coker RN Social History Tobacco Use [...] 10:26 AM EST Pt called into the carpenter refrigerator line and left a message asking if anyone has had the chance to review the photo of her incision. Message routed to the Spine Center nurses. documented in this encounter Plan of Treatment Not on file documented as of this encounter Visit Diagnoses Not on filedocumented in this encounter Care Teams Box Worker Relationship Specialty Start Date End Date Cb Florence PA [address] [place] [address] PCP - General Family Medicine 04/08/20 documented as of this encounter
--- OUTSIDE RECORDS SUMMARY | 2024-06-15 10:26 | XMS_ITS | Encounter Summary ---
[place] [address] Care Team Providers Care Marketing Traffic Coordinator Name Role Phone Cb Florence Primary Care Provider +1- [phone] Reason for Visit * Reason Onset Date Comments Oxygen Dependence 01/24/2022 Confirmation o f Order Form Encounter Details Date Type Department Care Team (Late st Contact Info) Description 01/24/2022 [place] [address] Suzanne Sears RN Oxygen Dependence (Confirmation of [...] for oxygen, signed by Dr. Holloway, to [employer]. This covered the following items: E1390 - [...] on filedocumented in this encounter Care Teams Marketing Traffic Coordinator Relationship Specialty Start Date End Date Cb Florence PA [address] [place] [address] PCP - General Family Medicine 04/08/20 documented as of this encounter
--- OUTSIDE RECORDS SUMMARY | 2024-06-15 10:26 | XMS_ITS | Encounter Summary ---
[place] [address] Care Team Providers Care Nurse Plastics Name Role Phone Cb Florence Primary Care Provider +1- [phone] Encounter Details Date Type Department Care Team [...] on filedocumented in this encounter Care Teams Nurse Plastics Relationship Specialty Start Date End Date Cb Florence PA [address] [place] [address] PCP - General Family Medicine 04/08/20 documented as of this encounter
--- OUTSIDE RECORDS SUMMARY | 2024-06-15 10:26 | XMS_ITS | Encounter Summary ---
Author Organization [facility] Address [facility] [place] [address] Care Team Providers Care Back Line Cook Name Role Phone Cb Florence Primary Care Provider +1- [phone] Encounter Details Date Type Department Care Team (Latest Contact Info) Description 08/10/2021 2:48 PM EST - 08/10/2021 11:[address] [facility] Hospital Encounter XRay at [address] [place] [address] Rios Acuna MD [facility] [place] [address] Spondylolisthesis of lumbar region Discharge Disposition: Home [...] MOUTH ONCE DAILY 03/17/2021 Narcan 4 mg/actuation [place], Non-Aerosol ADMINISTER A SINGLE SPRAY INTRANASALLY INTO [...] CLASSIC OXYGEN CONCENTRATOR MISC) 3 L by [facility]Non-Drug; Combo Route) route nightly. diphenoxylate-atropin e (LOMOTIL) 2.5-0.025 mg Tablet Take 1 tablet by mouth 4 times daily. DO NOT restarted this unless you are having diarrhea. 120 tablet 7 06/11/2014 albuterol (PROVENTIL HFA;VENTOLIN HFA) 90 mcg/actuation HFA Aerosol Inhaler Inhale 2 puffs into the lungs every 4 hours as needed. Use with spacer Inhalational Spacing Device Spcr 2 puffs by [facility].(Non-Drug; Combo Route) route daily. promethazine (PHENERGAN) 25 [...] who have questions please contact the health animal care supervisor that requested your imaging first. ? Narrative 08/10/2021 3:04 PM EST EXAMINATION: XR [...] patients who have questions please contactthe health animal care supervisor that requested your imaging first. Rios Acuna MD IMG DX ORDERABLES documented in this encounter Visit Diagnoses Diagnosis Spondylolisthesis of lumbar region Acquired spondylolisthesis documented in this encounter Care Teams Back Line Cook Relationship Specialty Start Date End Date Cb Florence PA [address] [place] [address] PCP - General Family Medicine 04/08/20 documented as of this encounter
--- OUTSIDE RECORDS SUMMARY | 2024-06-15 10:26 | XMS_ITS | Encounter Summary ---
[place] [address] Care Team Providers Care Auto Glass Worker Name Role Phone Cb Florence Primary Care Provider +1- [phone] Encounter Details Date Type Department Care Team (Late st Contact Info) Description 08/10/2021 Notes Only [facility] [place] [address] Milvia Fernandez RN Social History Tobacco Use [...] on filedocumented in this encounter Care Teams Auto Glass Worker Relationship Specialty Start Date End Date Cb Florence PA [address] [place] [address] PCP - General Family Medicine 04/08/20 documented as of this encounter
--- OUTSIDE RECORDS SUMMARY | 2024-06-15 10:26 | XMS_ITS | Encounter Summary ---
[place] [address] Care Team Providers Care Law Writer Name Role Phone Cb Florence Primary Care Provider +1- [phone] Reason for Visit * Reason Comments Follow Up Surgery Encounter Details Date Type Department Care Team (Latest Contact Info) Description 08/10/2021 3:40 PM EST Office Visit [place] [address] Rios Acuna MD [facility] [place] [address] s/p Right L4-5 hemilaminectomy and L4-S1 instrumented [...] who have questions please contact the health acute care physician that requested your imaging first. ? Electronically signed by: Kermit Reyna MD, [facility] ([phone]), at 10/09/2021 11:30 AM Narrative 10/09/2021 11:30 [...] patients who have questions please contactthe health acute care physician that requested your imaging first. Electronically signed by: Kermit Reyna MD, [facility]([phone]), at 10/09/2021 11:30 AM Rios Acuna MD IMG DX ORDERABLES documented in this encounter Visit Diagnoses Diagnosis s/p Right L4-5 hemilaminectomy and L4-S1 instrumented fusion on 07/11/21 (Dr. Acuna) Arthrodesis status s/p Right L4-5 hemilaminectomy and L4-S1 instrumented fusion on 07/11/21 (Dr. Acuna) Arthrodesis status documented in this encounter Care Teams Law Writer Relationship Specialty Start Date End Date Cb Florence PA [address] [place] [address] PCP - General Family Medicine 04/08/20 documented as of this encounter
--- OUTSIDE RECORDS SUMMARY | 2024-06-15 10:26 | XMS_ITS | Encounter Summary ---
[place] [address] Care Team Providers Care Acrobatic Dancer Name Role Phone Cb Florence Primary Care Provider +1- [phone] Reason for Visit * Reason Onset Date Comments Medication Refill 08/03/2021 Encounter Details Date Type Department Care Team (Late st Contact Info) Description 08/03/2021 Refill [place] [address] Lucretia Moreno LPN Social History Tobacco Use [...] on filedocumented in this encounter Care Teams Acrobatic Dancer Relationship Specialty Start Date End Date Cb Florence PA [address] [place] [address] PCP - General Family Medicine 04/08/20 documented as of this encounter
--- OUTSIDE RECORDS SUMMARY | 2024-06-15 10:26 | XMS_ITS | Encounter Summary ---
[place] [address] Care Team Providers Care Calciner Operator Name Role Phone Cb Florence Primary Care Provider +1- [phone] Encounter Details Date Type Department Care Team (Late st Contact Info) Description 07/28/2021 Telephone [facility] [place] [address] Lucretia Moreno LPN Social History Tobacco Use [...] on filedocumented in this encounter Care Teams Calciner Operator Relationship Specialty Start Date End Date Cb Florence PA [address] [place] [address] PCP - General Family Medicine 04/08/20 documented as of this encounter
--- OUTSIDE RECORDS SUMMARY | 2024-06-15 10:26 | XMS_ITS | Continuity of Care Document ---
Author Organization [facility] Ambulatory Clinics Address [address] [place] [address] Care Team Providers Care Director Of Sports Medicine Name Role Phone DEMAR RABAGO PA-C Primary Care Ronnie mejiamulu Encounter [facility] NBR [id number] Date(s): 04/09/24 - 04/09/24 [facility] Ambulatory Clinics [address] [place] [address]- Encounter Diagnosis Otitis media, acute(Discharge Diagnosis) - 04/09/24 Otitis media, unspecified, right ear(Final) - Tobacco use(Final) - Discharge Disposition: Home or Self Care Attending Physician: Naheed Wilson APRN Allergies, Adverse Reactions, Alerts Substance Criticality Severity Reaction Reaction Severity Status albuterol High criticality Moderate Act florencia Assessment and Plan Extracted from: Title:Office Visit Note Author:Jeancarlos Blandon PRAileen Date:04/09/24 1.??Otitis media, acute??H66 .90 Ordered: Augmentin 500 mg-125 mg oral tablet, 1 tab, Oral, every 12 hr, # 20 tab, 0 Refill(s), Pharmacy: [id number], 152.4, cm, 06/05/23 7:46:00 EDT, Height fluconazole 200 mg oral tablet, 200 mg = 1 tab, Oral, Daily, Take 1 tab then repeat in 3 days, # 2 tab, 0 Refill(s), Pharmacy: [id number], 152.4, cm, 06/05/23 7:46:00 EDT, Height ?? Future Appointments Future Scheduled Tests Radiology* XR Ankle Complete 3+ Views Right 06/04/23 Medications Augmentin 500 mg-125 mg oral tablet 1 tab, Oral, every 12 hr, # 20 tab, 0 Refill(s), Pharmacy: [id number], 152.4, cm, 06/05/23 7:46:00 EDT, Height Start Date: 04/09/24 Stop Date: 04/19/24 Status: Ordered buPROPion 200 mg/12 hours (SR) oral tablet, extended release 90 EA, 0 Refill(s), TAKE 1 TABLET BY MOUTH ONCE DAILY, 0 Refill(s) Start Date: 06/05/23 Status: Ordered celecoxib 200 mg oral capsule 200 mg = 1 cap, Oral, Daily, Take once daily for 14 days - in addition to 200mg celebrex capsules once daily, # 14 cap, 0 Refill(s), Pharmacy: [facility] Start Date: 05/03/23 Stop Date: 05/17/23 Status: [...] 0 Refill(s) Start Date: 06/05/23 Status: Ordered fluconazole 200 mg oral tablet 200 mg = 1 tab, Oral, Daily, Take 1 tab then repeat in 3 days, # 2 tab, 0 Refill(s), Pharmacy: [id number], 152.4, cm, 06/05/23 7:46:00 EDT, Height Start Date: 04/09/24 Stop Date: 04/11/24 Status: Ordered lisinopril 10 mg oral tablet [...] recent to oldest [Reference Range]: 1 Temperature Oral [35.8-37.3 Deg C] 37.2 Deg C (04/09/24 1:47 PM) Peripheral Pulse Rate [60-100 bpm] 68 bp m (04/09/24 1:47 PM) Respiratory Rate [12-24 br/min] 20 br/mi n (04/09/24 1:47 PM) Blood Pressure [90-140/60-90 mmHg] 161/8 7mmHg *HI* (04/09/24 1:47 PM) Mean Arterial Pressure, Cuff [65-140 mmH g] 112 mmHg (04/09/24 1:47 PM) Social History Social History Type Response Tobacco Current everyday tob acco user Tobacco Use:. 30 per day. Sex Sex Representation Female (finding) Hospital Discharge Instructions Patient Education 04/09/2024 13:04:29 Otitis Media, Adult Otitis Media, Adult Otitis media occurs when there is inflammation and fluid in the middle ear with signs and symptoms of an acute infection. The middle ear is a part of the ear that contains bones for hearing as well as air that helps send sounds to the brain. When infected fluid builds up in this space, it causes pressure and can lead to an ear infection. The eustachian tube connects the middle ear to the back of the nose (nasopharynx) and normally allows air into the middle ear. If the eustachian tube becomes blocked, fluid can build up and become infected. What are the causes? This condition is caused by a blockage in the eustachian tube. This can be caused by mucus or by swelling of the tube. Problems that can cause a blockage include: ??? A cold or other upper respiratory infection. ??? Allergies. ??? An irritant, such as tobacco smoke. ??? Enlarged adenoids. The adenoids are areas of soft tissue located high in the back of the throat, behind the nose and the roof of the mouth. They are part of the body's defense system (immune system). ??? A mass in the nasopharynx. ??? Damage to the ear caused by pressure changes (barotrauma). What increases the risk? You are more likely to develop this condition if you: ??? Smoke or are exposed to tobacco smoke. ??? Have an opening in the roof of your mouth (cleft palate). ??? Have gastroesophageal reflux. ??? Have an immune system disorder. What are the signs or symptoms? Symptoms of this condition include: ??? Ear pain. ??? Fever. ??? Decreased hearing. ??? Tiredness (lethargy). ??? Fluid leaking from the ear, if the eardrum is ruptured or has burst. ??? Ringing in the ear. How is this diagnosed? This condition is diagnosed with a physical exam. During the exam, your health care provider will use an instrument called an otoscope to look in your ear and check for redness, swelling, and fluid. He or she will also ask about your symptoms. Your health care provider may also order tests, such as: ??? A pneumatic otoscopy. This is a test to check the movement of the eardrum. It is done by squeezing a small amount of air into the ear. ??? A tympanogram. This is a test that shows how well the eardrum moves in response to air pressurein the ear canal. It provides a graph for your health care provider to review. How is this treated? This condition can go away on its own within 3???5 days. But if the condition is caused by a bacterial infection and does not go away on its own, or if it keeps coming back, your health care providermay: ??? Prescribe antibiotic medicine to treat the infection. ??? Prescribe or recommend medicines to control pain. Follow these instructions at home: ??? Take bffv-ahy-alnanyl and prescription medicines only as told by your health care provider. ??? If you were prescribed an antibiotic medicine, take it as told by your health care provider. Donot stop taking the antibiotic even if you start to feel better. ??? Keep all follow-up visits. This is important. Contact a health care provider if: ??? You have bleeding from your nose. ??? There is a lump on your neck. ??? You are not feeling better in 5 days. ??? You feel worse instead of better. Get help right away if: ??? You have severe pain that is not controlled with medicine. ??? You have swelling, redness, or pain around your ear. ??? You have stiffness in your neck. ??? A part of your face is not moving (paralyzed). ??? The bone behind your ear (mastoid bone) is tender when you touch it. ??? You develop a severe headache. Summary ??? Otitis media is redness, soreness, and swelling of the middle ear, usually resulting in pain and decreased hearing. ??? This condition can go away on its own within 3???5 days. ??? If the problem does not go away in 3???5 days, your health care provider may give you medicinesto treat the infection. ??? If you were prescribed an antibiotic medicine, take it as told by your health care provider. ??? Follow all instructions that were given to you by your health care provider. This information is not intended to replace advice given to you by your health care provider. Make sure you discuss any questions you have with your health care provider. Document Revised: 11/06/2021 Document Reviewed: 11/06/2021 Elsevier Patient Education ?? 2022 Elsevier Inc. Physician Outpatient Note * Naheed Wilson APRN: PERFORM Event Display: Office Clinic Note Physician Authored Date: [id number] DEEPAK PINO :1960 Age:63 years Sex:Female Visit Date:04/09/2024 Primary Care Physician: GEM CARRILLO, DEMAR VASQUEZ Chief Complaint onset of symptoms last saturday. ??R ear pain and drainage and sinus drainage, pt states she also hasa sore throat. ??unsure if she has had a fever. History of Present Illness Patient is a 63-year-old female who presents today with a chief complaint??of right??sided ear drainage and sore throat. ??Reports that she has had worsening symptoms??over the past 5 days. ??She denies fever, chills, body aches. ??Does have a right tympanostomy tube Review of Systems see hpi Physical Exam Vitals & Measurements T:??37.2?C ??(Oral)?? HR:??68??(Peripheral)?? RR:??20?? BP:??161/87?? SpO2:??97%?? Pain Score:??8?? Skin: No concerning lesions in examined areas. Head: Normal cephalic without trauma or injury. Neck: Supple, nontender, normal range of motion Eye: Pupils reactive. ??Conjunctiva clear. Sclera nonicteric. ??No swelling, obvious foreign bodies. ??Extraocular movement intact. ENT ear: Moderate drainage in the right ear canal, tympanostomy tube present nose: No discharge, normal mucosa, no swelling. ??Sinuses: Nontender to percussion. ??Oropharynx: Normal external, mucosalwithout mass, lesions, ulcerations.mild erythema, exudate, lesions, uvula midline. Cardiovascular: Regular rate and rhythm. ??No murmur, rubs, or gallops. Respiratory: Scattered wheeze Medical Decision Making: Evaluated for ear pain, positive drainage out of the tympanostomy tube. ??She was started on Augmentin??for antibiotic coverage. ??She??does report that she is prone to yeast infections, did provide fluconazole. ??She is to follow-up with her primary care for lack of improvement Assessment/Plan 1.??Otitis media, acute??H66.90 Ordered: Augmentin 500 mg-125 mg oral tablet, 1 tab, Oral, every 12 hr, # 20 tab, 0 Refill(s), Pharmacy: [id number], 152.4, cm, 06/05/23 7:46:00 EDT, Height fluconazole 200 mg oral tablet, 200 mg = 1 tab, Oral, Daily, Take 1 tab then repeat in 3 days, # 2 tab, 0 Refill(s), Pharmacy: [id number], 152.4, cm, 06/05/23 7:46:00 EDT, Height ?? Patient Education Otitis Media, Adult Problem List/Past Medical History Ongoing No qualifying data Historical No qualifying data Medications Augmentin 500 mg-125 mg oral tablet, 1 tab, Oral, every 12 hr buPROPion 200 mg/12 hours (SR) oral tablet, extended release celecoxib 200 mg oral capsule, 200 mg= 1 cap, Oral, Daily DULoxetine 60 mg oral delayed release capsule famotidine 20 mg oral tablet famotidine 40 mg oral tablet fluconazole 200 mg oral tablet, 200 mg= 1 tab, Oral, Daily lisinopril 10 mg oral tablet montelukast 10 mg oral tablet pregabalin 150 mg oral capsule rosuvastatin 10 mg oral tablet tiZANidine 4 mg oral tablet traMADol 50 mg oral tablet traZODone 150 mg oral tablet Allergies albuterol Social History Alcohol Current, Beer, Wine, Liquor, 1-2 times per month Electronic Cigarette/Vaping Electronic Cigarette Use: Never. Substance Use Never Tobacco Current everyday tobacco user Tobacco Use:. 30 per day. Electronically Signed on 04/09/2024 19:13 EDT Naheed Wilson APRN Outpatient Summary note * Naheed Wilson APRN: PERFORM Event Display: Ambulatory Patient Summary Authored Date: [id number] DEEPAK PINO Maria Eugenia :1960 Age:63 years Sex:Female Visit Date:04/09/2024 Primary Care Physician: DEMAR RABAGO PA-C Ambulatory Visit Instructions We would like to thank you for allowing us to assist you with your healthcare needs. The following includes patient education materials and information regarding your injury/illness. Your Next Steps Scheduled Future Appointments Saturday 8:30 AM EDT ?? With: MOSES Jeffery/Farzad, SANDYT Where: [facility] Rehabilitation Status: Confirmed Saturday 10:00 AM EDT ?? With: MOSES Jeffery/Farzad, CHT Where: [facility] Rehabilitation Status: Confirmed Saturday 8:30 AM EDT ?? With: Yudi Montgomery OTR/Farzad, CHT Where: [facility] Rehabilitation Status: Confirmed Medications What How Much When Why Instructions New amoxicillin-clavulanate (Augmentin 500 mg-125 mg oral tablet) 1 tab Oral (given by mouth) Every 12 hours Otitis media, acute Duration: [address] [facility] New fluconazole (fluconazole 200 mg oral tablet) 1 tab Oral (given by mouth) Every day Otitis media, acute Duration: 2 Days Take 1 tab then repeat in 3 days ?? Pickup at [facility] Unchanged buPROPion (buPROPion 200 mg/ 12 hours (SR) oral tablet, extended release) 90 EA, 0 Refill(s), TAKE 1 TABLET BY MOUTH ONCE DAILY ?? Unchanged celecoxib (celecoxib 200 mg oral capsule) 1 Capsules Oral (given by mouth) Every day Contusion of lower leg, left Knee injury Shoulder injury Duration: 14 Days Take once daily for 14 days - in addition to 200mg celebrex capsules once daily ?? Unchanged DULoxetine (DULoxetine 60 mg oral delayed release capsule) 90 EA, 0 Refill(s), TAKE 1 CAPSULE BY MOUTH ONCE DAILY ?? Unchanged famotidine (famotidine 20 mg oral tablet) 90 EA, 0 Refill(s), TAKE 1 TABLET BY MOUTH ONCE DAILY FOR GERD/ INDIGESTION ?? Unchanged famotidine (famotidine 40 mg oral tablet) 90 EA, 0 Refill(s), TAKE 1 TABLET BY MOUTH ONCE DAILY FOR GERD/ INDIGESTION ?? Unchanged lisinopril (lisinopril 10 mg oral tablet) 90 EA, 0 Refill(s), TAKE 1 TABLET BY MOUTH ONCE DAILY ?? Unchanged montelukast (montelukast 10 mg oral tablet) 90 EA, 0 Refill(s), TAKE 1 TABLET BY MOUTH ONCE DAILY ?? Unchanged pregabalin (pregabalin 150 mg oral capsule) 180 EA, 0 Refill(s), TAKE 1 CAPSULE BY MOUTH TWICE DAILY ?? Unchanged rosuvastatin (rosuvastatin 10 mg oral tablet) 90 EA, 0 Refill(s), TAKE 1 TABLET BY MOUTH ONCE DAILY AT NIGHT ?? Unchanged tiZANidine (tiZANidine 4 mg oral tablet) 90 EA, 0 Refill(s), TAKE 1 TABLET BY MOUTH THREE TIMES DAILY NEEDED ?? Unchanged traMADol (traMADol 50 mg oral tablet) 90 EA, 0 Refill(s), TAKE 1 TABLET BY MOUTH THREE TIMES DAILY NEEDED ?? Unchanged traZODone (traZODone 150 mg oral tablet) 90 EA, 0 Refill(s), TAKE 1 TABLET BY MOUTH AT BEDTIME ?? Pharmacy Information [facility]: [address] [place], [place] [id number] [phone] Your Summary Your Diagnosis Otitis media, acute Your Care Team Attending Physician - Naheed Wilson APRN Primary Care Physician - DEMAR RABAGO PA-C Discharge Vitals Temperature??(Oral) 99.0 ??F (37.2 ??C) Heart Rate??(Peripheral) 68 Respiratory Rate?? 20 Blood Pressure?? 161/87?? SpO2?? 97% Allergies albuterol Education Materials Otitis Media, Adult Otitis media occurs when there is inflammation and fluid in the middle ear with signs and symptoms of an acute infection. The middle ear is a part of the ear that contains bones for hearing as well as air that helps send sounds to the brain. When infected fluid builds up in this space, it causes pressure and can lead to an ear infection. The eustachian tube connects the middle ear to the back of the nose (nasopharynx) and normally allows air into the middle ear. If the eustachian tube becomes blocked, fluid can build up and become infected. What are the causes? This condition is caused by a blockage in the eustachian tube. This can be caused by mucus or by swelling of the tube. Problems that can cause a blockage include: ? A cold or other upper respiratory infection. ? Allergies. ? An irritant, such as tobacco smoke. ? Enlarged adenoids. The adenoids are areas of soft tissue located high in the back of the throat, behind the nose and the roof of the mouth. They are part of the body's defense system (immune system). ? A mass in the nasopharynx. ? Damage to the ear caused by pressure changes (barotrauma). What increases the risk? You are more likely to develop this condition if you: ? Smoke or are exposed to tobacco smoke. ? Have an opening in the roof of your mouth (cleft palate). ? Have gastroesophageal reflux. ? Have an immune system disorder. What are the signs or symptoms? Symptoms of this condition include: ? Ear pain. ? Fever. ? Decreased hearing. ? Tiredness (lethargy). ? Fluid leaking from the ear, if the eardrum is ruptured or has burst. ? Ringing in the ear. How is this diagnosed? This condition is diagnosed with a physical exam. During the exam, your health care provider will use an instrument called an otoscope to look in your ear and check for redness, swelling, and fluid. He or she will also ask about your symptoms. Your health care provider may also order tests, such as: ? A pneumatic otoscopy. This is a test to check the movement of the eardrum. It is done by squeezing a small amount of air into the ear. ? A tympanogram. This is a test that shows how well the eardrum moves in response to air pressure in the ear canal. It provides a graph for your health care provider to review. How is this treated? This condition can go away on its own within 3???5 days. But if the condition is caused by a bacterial infection and does not go away on its own, or if it keeps coming back, your health care providermay: ? Prescribe antibiotic medicine to treat the infection. ? Prescribe or recommend medicines to control pain. Follow these instructions at home: ? Take pwsa-ojk-lrfpgwa and prescription medicines only as told by your health care provider. ? If you were prescribed an antibiotic medicine, take it as told by your health care provider. Do notstop taking the antibiotic even if you start to feel better. ? Keep all follow-up visits. This is important. Contact a health care provider if: ? You have bleeding from your nose. ? There is a lump on your neck. ? You are not feeling better in 5 days. ? You feel worse instead of better. Get help right away if: ? You have severe pain that is not controlled with medicine. ? You have swelling, redness, or pain around your ear. ? You have stiffness in your neck. ? A part of your face is not moving (paralyzed). ? The bone behind your ear (mastoid bone) is tender when you touch it. ? You develop a severe headache. Summary ? Otitis media is redness, soreness, and swelling of the middle ear, usually resulting in pain and decreased hearing. ? This condition can go away on its own within 3???5 days. ? If the problem does not go away in 3???5 days, your health care provider may give you medicines to treat the infection. ? If you were prescribed an antibiotic medicine, take it as told by your health care provider. ? Follow all instructions that were given to you by your health care provider. This information is not intended to replace advice given to you by your health care provider. Make sure you discuss any questions you have with your health care provider. Document Revised: 11/06/2021 Document Reviewed: 11/06/2021 Elsevier Patient Education ?? 2022 Elsevier Inc. Electronically Signed on: 04/09/2024 14:04 EDTSigned by:[facility] Patient Care team information Care Team Personnel Name: DEMAR RABAGO PA-C Position: No Access Member Role: Primary Care Physician Address: [facility] [address] [place] [address]- Care Team Related Persons Name: LIBERTY PINO Name: DANETTE PATEL Name: DANETTE PATEL Insurance Providers Guarantor name: DEEPAK PINO Health Plan Information #: 3 Payer: [employer] [place] Member Number: [id number] Policy Number: NA Health Plan Information #: 1 Payer: [facility] Member Number: [id number] Policy Number: NA Health Plan Information #: 2 Payer: [place] Member Number: [id number] Policy Number: NA
--- OUTSIDE RECORDS SUMMARY | 2024-06-15 10:26 | XMS_ITS | Encounter Summary ---
Author Organization [facility] [address] Care Team Providers Care Lock Fitter Name Role Phone Cb Florence Primary Care Provider +1- [phone] Encounter Details Date Type Department Care Team (Late st Contact Info) Description 09/14/2021 Orders [place] [address] Osmany Holloway MD [facility] [place] [address] COPD, moderate; PAH (pulmonary artery hypertension) Social [...] diseases documented in this encounter Care Teams Lock Fitter Relationship Specialty Start Date End Date Cb Florence PA [address] [place] [address] PCP - General Family Medicine 04/08/20 documented as of this encounter
--- OUTSIDE RECORDS SUMMARY | 2024-06-15 10:26 | XMS_ITS | Encounter Summary ---
[place] [address] Care Team Providers Care Elementary Science Teacher Name Role Phone Cb Florence Primary Care Provider +1- [phone] Encounter Details Date Type Department Care Team (Late st Contact Info) Description 08/14/2021 Telephone [facility] [place] [id number] Lucretia Moreno LPN Social History Tobacco Use [...] on filedocumented in this encounter Care Teams Elementary Science Teacher Relationship Specialty Start Date End Date Cb Florence PA [address] [place] [address] PCP - General Family Medicine 04/08/20 documented as of this encounter
--- OUTSIDE RECORDS SUMMARY | 2024-06-15 10:26 | XMS_ITS | Encounter Summary ---
[place] [address] Care Team Providers Care Card Cutter Helper Name Role Phone Cb Florence Primary Care Provider +1- [phone] Encounter Details Date Type Department Care Team (Late st Contact Info) Description 08/02/2021 Telephone [facility] [place] [id number] Lucretia Moreno LPN Social History Tobacco Use [...] on filedocumented in this encounter Care Teams Card Cutter Helper Relationship Specialty Start Date End Date Cb Florence PA [address] [place] [address] PCP - General Family Medicine 04/08/20 documented as of this encounter
--- OUTSIDE RECORDS SUMMARY | 2024-06-15 10:26 | XMS_ITS | Encounter Summary ---
[place] [address] Care Team Providers Care Yeast Culture Operator Name Role Phone Cb Florence Primary Care Provider +1- [phone] Reason for Visit * Reason Onset Date Comments Medication Refill 07/20/2021 Encounter Details Date Type Department Care Team (Late st Contact Info) Description 07/20/2021 Refill [facility] [place] [phone] Chen Valencia, RN Social History Tobacco Use [...] on filedocumented in this encounter Care Teams Yeast Culture Operator Relationship Specialty Start Date End Date Cb Florence PA [address] [place] [address] PCP - General Family Medicine 04/08/20 documented as of this encounter
--- OUTSIDE RECORDS SUMMARY | 2024-06-15 10:27 | XMS_ITS | Encounter Summary ---
[place] [address] Care Team Providers Care Pvc Monitor Name Role Phone Cb Florence Primary Care Provider +1- [phone] Reason for Visit * Reason Onset Date Comments Pre Procedure Call 05/04/2021 Encounter Details Date Type Department Care Team (Late st Contact Info) Description 05/04/2021 Telephone [facility] [place] [address] Virgie Lopez RN Pre Procedure [...] reference. Signed Consent Form passed to the VTOR chief design engineer for scanning. Reviewed with that she is [...] on filedocumented in this encounter Care Teams Pvc Monitor Relationship Specialty Start Date End Date Cb Florence PA [address] [place] [address] PCP - General Family Medicine 04/08/20 documented as of this encounter
--- OUTSIDE RECORDS SUMMARY | 2024-06-15 10:27 | XMS_ITS | Encounter Summary ---
[place] [address] Care Team Providers Care Naphthalene Operator Helper Name Role Phone Cb Florence Primary Care Provider [phone]- [phone] Reason for Referral * Diagnostic Test (Routine) - Closed Specialty Diagnoses / Procedures Referred By Contac t Referred To Contact Cardiology Diagnoses PAH (pulmonary artery hypertension) Procedures Echocardiogram Transthoracic([facility]) Osmany Holloway MD [facility] [place] [address] [facility] [place] [address] Referral ID Status Reason Start Date Expiration Date V isits Requested Visits Authorized [id number] Closed Specialty Service Requested 04/18/2020 04/18/2021 1 1 Reason for Visit * Diagnostic Test (Routine) - Closed Specialty Diagnoses / Procedures Referred By Contac t Referred To Contact Cardiology Diagnoses PAH (pulmonary artery hypertension) Procedures Echocardiogram Transthoracic([facility]) Osmany Holloway MD [facility] [place] [address] [facility] [place] [address] Referral ID Status Reason Start Date Expiration Date V isits Requested Visits Authorized [id number] Closed Specialty Service Requested 04/18/2020 04/18/2021 1 1 Encounter Details Date Type Department Care Team (Latest Contact Info) Description 07/29/2020 12:43 PM EST - 07/29/2020 2:18 PM EST Hospital Encounter Non-Invasive Cardiology Lab [facility] [place] [address] Osmany Holloway MD [facility] [address] PULMONARY MEDICINE [place] [id number] PAH (pulmonary artery hypertension) Discharge Disposition: Home [...] CLASSIC OXYGEN CONCENTRATOR MISC) 3 L by [facility] [place] [place].(Non-Drug; Combo Route) route nightly. diphenoxylate-atropin e (LOMOTIL) 2.5-0.025 mg Tablet Take 1 tablet by mouth 4 times daily. DO NOT restarted this unless you are having diarrhea. 120 tablet 7 06/11/2014 albuterol (PROVENTIL HFA;VENTOLIN HFA) 90 mcg/actuation HFA Aerosol Inhaler Inhale 2 puffs into the lungs every 4 hours as needed. Use with spacer Inhalational Spacing Device Spcr 2 puffs by [facility] [place] [place].(Non-Drug; Combo Route) route daily. promethazine (PHENERGAN) 25 [...] sulfamethoxazole-trim ethoprim DS (Bactrim DS) 800-160 mg TabletIndications:VETERINARIAN EPIDEMIOLOGIST D, moderate Take 1 tablet by mouth [...] W CONTRAST (07/29/2020 2:08 PM EST) Pathologist [facility] EF [facility] [employer] SYSTEM Anatomical Region Laterality Modality Other 07/29/2020 Narrative 07/29/2020 2:52 PM EST Procedure: ?Transthoracic Echocardiogram Patient: ?ODTETE Del Cid ? (Age): 1960(59y) Med Rec#: ? [id number] ?Sex: ?F ? Site Loc: ? [facility] [place] ?Ht / Wt: ??154.94(cm)/79.0 Pt. Loc: ?Echo Lab ?BSA: ?1.78 Study Date: ?? 07/29/2020 ?Pt. Type: Same-Day Patient Tape: ? Referring: Osmany Holloway Reading: Parker Narvaez ([id number]) Metallography Teacher: Peg Jose Diagnosis: *Other secondary pulmonary hypertension [...] Vmax ?0.67 ? m/sec ? MV deceleration [id number] ?msec ? MV A-wave Vmax ?0.75 ? [...] ? Mid-Inferior ?Normal ? Mid-Inferoseptal ?Normal ? [place]-Septal ? Normal ? [place]-Anterior ? Normal ? [place]-Lateral ?Normal ? [place]-Inferior ? Normal ? [place]-Tip ?Normal ? This report has been electronically signed by: Parker Narvaez MD ? 07/29/2020 14:51:18 Images reviewed and interpretation verified [facility] Cardiac Ultrasound Laboratory Procedure Note Parker Narvaez MD - 07/29/2020 Procedure: Transthoracic Echocardiogram Patient: ODETTE Del Cid DOB(Age): 1960(59y) Med Rec#: [id number] Sex: F Site Loc: [facility] Ht / Wt: 154.94(cm)/79.0 Pt. Loc: Echo Lab BSA: 1.78 Study Date: 07/29/2020 Pt. Type: Same-Day Patient Tape: Referring: Osmany Holloway Reading: Parker Narvaez ([id number]) Metallography Teacher: Peg Jose Diagnosis: *Other secondary pulmonary hypertension [...] MV E-wave Vmax 0.67 m/sec MV deceleration [id number] msec MV A-wave Vmax 0.75 m/sec MV [...] Normal Mid-Posterolateral Normal Mid-Inferior Normal Mid-Inferoseptal Normal [place]-Septal Normal [place]-Anterior Normal [place]-Lateral Normal [place]-Inferior Normal [place]-Tip Normal This report has been electronically signed by: Parker Narvaez MD 07/29/2020 14:51:18 Images reviewed and interpretation verified [facility] Cardiac Ultrasound Laboratory Osmany Overton MD ECHO [...] mLs documented in this encounter Care Teams Naphthalene Operator Helper Relationship Specialty Start Date End Date Cb Florence PA [address] [place] [address] PCP - General Family Medicine 04/08/20 documented as of this encounter
--- OUTSIDE RECORDS SUMMARY | 2024-06-15 10:27 | XMS_ITS | Encounter Summary ---
[place] [address] Care Team Providers Care Renal Dialysis Technician Name Role Phone Cb Florence Primary Care Provider [phone]- [phone] Reason for Visit * Reason Onset Date Comments Oxygen Dependence 01/27/2021 Certificate of Medical Necessity Encounter Details Date Type Department Care Team (Late st Contact Info) Description 01/27/2021 [place] [address] Suzanne Sears RN Oxygen Dependence [...] for Oxygen, signed by Dr. Holloway, to [facility]. This covered the following items: [...] on filedocumented in this encounter Care Teams Renal Dialysis Technician Relationship Specialty Start Date End Date Cb Florence PA [address] [place] [address] PCP - General Family Medicine 04/08/20 documented as of this encounter
--- OUTSIDE RECORDS SUMMARY | 2024-06-15 10:27 | XMS_ITS | Encounter Summary ---
Author Organization Formerly [facility] [place] [address] Care Team Providers Care Gripper Installer Name Role Phone Cb Florence Primary Care Provider [phone]- [phone] Reason for Visit * Auth/Cert Specialty Diagnoses [...] Expiration Date Visits Re quested Visits Authorized [id number] 1 1 Encounter Details Date Type Department Care Team (Late st Contact Info) Description 07/11/2021 10:15 AM EST - 07/11/2021 3:30 PM EST Surgery [place] [address] Rios Gonzalez MD [facility] [place] [address] ARTHRODESIS, LUMBAR SPINE, SINGLE INTERSPACE (WRVU 23.53) [...] Poppy Mclaughlin Patient Age: 60 y.o. Language: Chilean Race: White Ethnicity: Not nor Admit date: 07/11/2021 Discharge date and time: 07/14/2021 Attending Physician: Rios Gonzalez MD Discharge Physician: Rios Gonzalez MD Follow-up Recommendations for Providers: See discharge instructions for additional details. Future Appointments Date Time Provider Department Center 08/10/2021 3:00 PM [facility] DX ROOM 2 MH Xray [facility] Rad 08/10/2021 3:40 PM Rios Gonzalez MD [facility] [place] [facility] [place] Provider Contact Information: Rios Gonzalez MD Spine Center: [phone] After hours and weekends, call [facility] Knock Out Hand, , and have the Orthopedic resident paged. [...] who have questions please contact the health customer care team coach that requested your imaging first. Pending Studies and Lab Data at Discharge: * No orders in the log * Transfusions: No Discharge Conditions/Prognosis: Stable, awake, and alert. Mobilizing as noted above, pain controlled on oral medications. Discharge to: Home HOME HEALTH CARE AGENCY: [facility] PHONE: [phone] FAX: [phone] Updated Allergies/ADRs: Allergies Allergen Reactions ??? Pneumococcal [...] device Spcr Commonly known as: Joshua Aerosol [place] Enhancer 2 puffs [place] [facility]Non-Drug; Combo Route) route daily. 2 puff Refills: 0 lisinopriL 10 mg Tab Commonly known as: Zestril daily. Refills: 0 loratadine 10 mg Tab Commonly known as: Claritin Take 10 mg by mouth daily. 10 mg Refills: 0 CLASSIC OXYGEN CONCENTRATOR MISC 3 L by [facility]Non-Drug; Combo Route) route nightly. 3 L Refills: 0 Miscellaneous Medical Supply [facility] Face mask for nocturnal O2, and appropriate accessories. Quantity: 1 each Refills: PRN montelukast 10 mg Tab Commonly known as: Singulair Take 10 mg by mouth nightly. 10 mg Refills: 0 MULTIVITAMIN ORAL Take 2 tablets by mouth daily. 2 tablet Refills: 0 Narcan 4 mg/actuation [place] ADMINISTER A SINGLE SPRAY INTRANASALLY INTO ONE [...] as: NEURONTIN ipratropium 42 mcg (0.06 %) [place] Commonly known as: ATROVENT meloxicam 15 mg [...] them. 3. You should also take an clqw-znm-obajwcj stool softener of laxative, such as Miriam-colace [...] please contact the Spine Center Prescription Lineat [phone]. PRESCRIPTION RENEWAL REQUESTS CAN TAKE UP TO 3 DAYS TO FILL. YOU WILL BE REQUIRED TO ACCESS COORDINATOR YOUR NARCOTIC REFILL PRESCRIPTION IN PERSON AT [facility] [place] IT CAN BE [...] You can also call local [place] or [place] quit lines for additional assistance. [place] Quit Line: 8-282-VRPQ-NOW Online at [employer] [place] Quit Line: 3-217-AUAD-NOW Online at quitOberScharrer.org PLEASE CALL US AT [phone] TO SPEAK WITH A SPINE CENTER NURSE [...] Numbers: Clinical issues, nurse questions, medication renewals: [phone] Gonzalez: [phone] Evenings after 5pm and weekends you may contact the Orthopaedic resident radiology interventional physician: [phone], askthe slip cover operator to page the Orthopaedic resident Follow Up Appointments: 1. You will have follow-up appointments at [facility] as indicated in the ???Future Appointments and Orders?? section of your discharge summary. If X-rays have been ordered for you prior to this appointment you will need to report to the Radiology department, desk 3T, 1 hour prior to your spine center appointment. Future Appointments Date Time Provider Department Center 08/10/2021 3:00 PM [facility] DX ROOM 2 MH Xray [facility] Rad 08/10/2021 3:40 PM Rios Gonzalez MD [facility] [place] [facility] General Instructions None Future Appointments and Orders Future Appointments and Orders Future Appointments Provider Department Dept Phone 08/10/2021 3:00 PM [facility] DX ROOM 2 XRay at [facility] Arrive at: Medical Lab Director Area 3T [phone] Please go to Medical Lab Director Area 3T ([place] Location). 08/10/2021 3:40 PM Rios Gonzalez MD Pain and Spine Center at [facility] Arrive at: Medical Lab Director Area 3D [phone] Future Orders Complete By Expires Referral to Home Health - at DISCHARGE [[id number] CPT(R)] As directed Process Instructions: Scheduling Instructions: Comments: DOCUMENTATION FOR VNA SERVICES (INCLUDING THOSE PATIENTS WITH MEDICARE COVERAGE REQUIRING HOME VNA SERVICES AND/OR HOSPICE SERVICES) PATIENT'S LOCATION: Poppy Mclaughlin [address] [place] [id number] Cell: Telephone Information: Clinical Informatics Strategist's Name: self/patient In discussion with the attending physician, it is certified that this patient is under their care and that they, or a Nurse Practitioner,Clinical Nurse specialist or Physician Glass Cut Off Supervisor who is working directly with them, had [...] x 7 days HOME HEALTH CARE AGENCY: [facility] PHONE: [phone] FAX: [phone] Start of care: 24 to 48 hours [...] Jesus [address] / [place] [address] All A agencies which cover the area of patient's residence have been reviewed, either verbally laila writing, and patient/family have chosen the home health care agency noted Questions: Agency name and contact information: [facility] Patient location post discharge: home What services are requested: Physical Therapy Start date: Responsible MD post discharge contact info: Primary Care Provider: KIARA Jesus [phone] Discharge References/Attachments SMOKING: STOPPING ([place]UR[place] AND [place]) documented in this encounter Discharge Instructions * [...] them. 3. You should also take an czhd-nrm-ilullsm stool softener of laxative, such as Miriam-colace [...] please contact the Spine Center Prescription Lineat [phone]. PRESCRIPTION RENEWAL REQUESTS CAN TAKE UP TO 3 DAYS TO FILL. YOU WILL BE REQUIRED TO ACCESS COORDINATOR YOUR NARCOTIC REFILL PRESCRIPTION IN PERSON AT [facility] [place] IT CAN BE [...] You can also call local [place] or [place] quit lines for additional assistance. [place] Quit Line: 6-495-OZZB-NOW Online at [employer].org [place] Quit Line: 2-204-FPOO-NOW Online at quitnowAdviceScene Enterprises.org PLEASE CALL US AT [phone] TO SPEAK WITH A SPINE CENTER NURSE [...] Numbers: Clinical issues, nurse questions, medication renewals: [phone] Gonzalez: [phone] Evenings after 5pm and weekends you may contact the Orthopaedic resident radiology interventional physician: [phone], askthe slip cover operator to page the Orthopaedic resident Follow Up Appointments: 1. You will have follow-up appointments at [facility] as indicated in the ???Future Appointments and Orders?? section of your discharge summary. If X-rays have been ordered for you prior to this appointment you will need to report to the Radiology department, desk 3T, 1 hour prior to your spine center appointment. Future Appointments Date Time Provider Department Center 08/10/2021 3:00 PM [facility] DX ROOM 2 MH Xray [facility] Rad 08/10/2021 3:40 PM Rios Gonzalez MD [facility] [place] Sp [facility] * Attachments The following attachments cannot be sent through Care Everywhere. * SMOKING: STOPPING ([place]UR[place] AND [place]) documented in this encounter Medications at Time of Discharge Medication Sig Dispensed Refills Start Date End Date acetaminophen (Tylenol) 500 mg Tablet Take 2 tablets by mouth every 6 hours. 0 07/14/[address] (Cymbalta) 30 mg Capsule, Delayed Release(E.C.) TAKE 1 CAPSULE BY MOUTH ONCE DAILY 03/17/2021 Narcan 4 mg/actuation [place], Non-Aerosol ADMINISTER A SINGLE SPRAY INTRANASALLY INTO [...] Time Provider Department Center 08/10/2021 3:00 PM [facility] DX ROOM 2 Xray [facility] Rad 08/10/2021 3:40 PM Rios Gonzalez MD [facility] [place] [facility] Spine Attending I have seen and examined [...] STRUCTUAL performed by Rios Gonzalez MD at [facility] MAIN OR ??? PRO ANTERIOR INSTRUMENTATION 2-3 VERTEBRAL SEGMENTS 09/08/2013 @ANT. SPINAL INSTRUMENTATION, 2-3 VERTEBRA, SEGMENTED performed by Rios Gonzalez MD at [facility] [place] ??? PRO ARTHRD ANT INTERDY CERVCL BELW C2 EA ADDL NTRSPC 09/08/2013 @ARTHRODESIS ANT INTERBDY CERVCL BELOW C2 EA ADDL INTRSPACE performed by Rios Gonzalez MD at [facility] MAIN OR ??? PRO ARTHRODESIS, ANT INTERBODY,DECOMPRESSION; CERVICAL BELOW C2 09/08/2013 ARTHRODESIS, ANT INTERBODY,DECOMPRESSION; CERVICAL BELOW C2 performed by Rios Gonzalez MD at [facility] MAIN OR ??? PRO AUTOGRAFT SPINE SURGERY MORSELIZED SEP INCISION Bilateral 07/11/2021 AUTOGRAFT FOR SPINE SURGERY ONLY; MORSELIZED (THROUGH SEPARATE SKIN OR FASCIAL INCISION) (WRVU 2.79) performed by Rios Gonzalez MD at [facility] MAIN OR ??? PRO DECOMPRESS SPINAL CORD, 1 SEG Right 08/31/2014 TRANSPEDICULAR LUMBAR DECOMPRESSION SPINAL CORD,EQUINA & NERVE ROOTS, ONE LVL. performed by Rios Gonzalez MD at [facility] MAIN OR ??? PRO DECOMPRESS SPINAL CORD, 1 SEG N/A 07/11/2021 TRANSPEDICULAR LUMBAR DECOMPRESSION SPINAL CORD,EQUINA & NERVE ROOTS, ONE LVL. (WRVU 21.86) performed by Rios Gonzalez MD at [facility] MAIN OR ??? PRO LAMINEC/FACETECT/FORAMIN, EACH ADDNL Bilateral 07/11/2021 ADD'L INTERSPACES CX., THORACIC, LUMBAR (WRVU 3.47) performed by Rios Gonzalez MD at [facility] MAIN OR ??? PRO LAMINEC/FACETECT/FORAMIN, LUMBAR 1 SEG N/A 07/11/2021 LAMINECTOMY, FACETECTOMY & FORAMINOTOMY,LUMBAR, ONE LEVEL (WRVU 15.37) performed by Rios Gonzalez MD at [facility] MAIN OR ??? PRO LAP, CHOLECYSTECTOMY/GRAPH 11/04/2012 LAPAROSCOPIC CHOLECYSTECTOMY WITH CHOLANGIOGRAM performed by Abel Carlton MD at [facility] MAIN OR ??? PRO LUMBAR SPINE FUSN, POST TECH Bilateral 07/11/2021 ARTHRODESIS, LUMBAR SPINE, SINGLE LEVEL (WRVU 23.53) performed by Rios Gonzalez MD at [facility] MAIN OR ??? PRO POSTERIOR SEGMENTAL INSTRUMENTATION 3-6 VRT SEG Bilateral 07/11/2021 POST SPINAL INSTRUMENTATION, 3-6 VERTEBRA, NON SEGMENTAL (WRVU 12.56) performed by Rios Gonzalez MD at [facility] MAIN OR ??? PRO SPINE FUSN, POST TECH, EA ADDNL SGMT Bilateral 07/11/2021 ARTHRODESIS, POSTERIOR VERTEBRAL EA.ADD. SEGMENT (WRVU 6.43) performed by Rios Gonzalez MD at [facility] MAIN OR ??? PRO UPPER GI ENDOSCOPY, BIOPSY N/A 10/26/2015 UPPER GASTROINTESTINAL ENDOSCOPY,WITH BIOPSY SINGLE OR MULTIPLE performed by Apolinar Sepulveda MDat [facility] ENDOSCOPY ??? PRO UPPER GI ENDOSCOPY, DIAGNOSTIC N/A 10/26/2015 EGD, UPPER GI ENDOSCOPY performed by Apolinar Sepulveda MD at [facility] ENDOSCOPY ??? PRO UPPER GI ENDOSCOPY, DIAGNOSTIC N/A 10/02/2016 EGD, UPPER GI ENDOSCOPY performed by Justin Starkey MD at [facility] ENDOSCOPY ??? PRO UPPER GI ENDOSCOPY, W/DIR SUBMUC INJ 11/05/2017 EGD, W DIRECTED SUBMUCOSAL INJECTION(S) performed by Osmany Keller MD at [facility] ENDOSCOPY Social History: Patient lives [...] to obtain shower chair for home from [employer] and work with home OT on showering [...] Management, Balance, Recommendations and Discharge planning. Pager: [phone] JUSTIN ESPINO 07/13/2021 Occupational Therapy Rehabilitation Department * Monica Rivera RN - 07/13/2021 12:51 PM EST Phone call to [facility] re patient's home oxygen set up. Spoke to Jaclyn Nassar [phone] clarified that patient has portable oxygen concentrator at home and it has battery back up. Update to patient. Phone call from Mitch with [facility] informing that patient's front wheel walker will not be covered by medicare since patient purchased 4 wheel walker less than 5 years ago.Update to patient andspouse; spouse informed that he opts to purchase FWW at [facility], informed that patient will need FWW [...] plan as stated. Time IN / OUT: 4289-1802 Total Minutes, Physical Therapy: 30 Billing Code: 1 gait training, 1 therapeutic activity Malgorzata Fish PT Pager: [phone] Physical Therapy Inpatient Rehabilitation Department * Rios [...] Time Provider Department Center 08/10/2021 3:00 PM [facility] DX ROOM 2 MH Xray [facility] Rad 08/10/2021 3:40 PM Rios Gonzalez MD [facility] [place] Sp [facility] Spine Attending I have seen and examined [...] referrals are placed. Patient requests referral to [facility] PHONE: [phone] FAX: [phone] Ortho Care Located @ [facility] [place], [place] Equipment needed: Front wheel walker Expected date of discharge: 07/13/2021 Referral routed to the Senior Environmental Consultant for matching with agency/vendor and to provide [...] STRUCTUAL performed by Rios Gonzalez MD at [facility] MAIN OR ??? PRO ANTERIOR INSTRUMENTATION 2-3 VERTEBRAL SEGMENTS 09/08/2013 @ANT. SPINAL INSTRUMENTATION, 2-3 VERTEBRA, SEGMENTED performed by Rios Gonzalez MD at [facility] [place] ??? PRO ARTHRD ANT INTERDY CERVCL BELW C2 EA ADDL NTRSPC 09/08/2013 @ARTHRODESIS ANT INTERBDY CERVCL BELOW C2 EA ADDL INTRSPACE performed by Rios Gonzalez MD at [facility] MAIN OR ??? PRO ARTHRODESIS, ANT INTERBODY,DECOMPRESSION; CERVICAL BELOW C2 09/08/2013 ARTHRODESIS, ANT INTERBODY,DECOMPRESSION; CERVICAL BELOW C2 performed by Rios Gonzalez MD at [facility] MAIN OR ??? PRO AUTOGRAFT SPINE SURGERY MORSELIZED SEP INCISION Bilateral 07/11/2021 AUTOGRAFT FOR SPINE SURGERY ONLY; MORSELIZED (THROUGH SEPARATE SKIN OR FASCIAL INCISION) (WRVU 2.79) performed by Rios Gonzalez MD at [facility] MAIN OR ??? PRO DECOMPRESS SPINAL CORD, 1 SEG Right 08/31/2014 TRANSPEDICULAR LUMBAR DECOMPRESSION SPINAL CORD,EQUINA & NERVE ROOTS, ONE LVL. performed by Rios Gonzalez MD at [facility] MAIN OR ??? PRO DECOMPRESS SPINAL CORD, 1 SEG N/A 07/11/2021 TRANSPEDICULAR LUMBAR DECOMPRESSION SPINAL CORD,EQUINA & NERVE ROOTS, ONE LVL. (WRVU 21.86) performed by Rios Gonzalez MD at [facility] MAIN OR ??? PRO LAMINEC/FACETECT/FORAMIN, EACH ADDNL Bilateral 07/11/2021 ADD'L INTERSPACES CX., THORACIC, LUMBAR (WRVU 3.47) performed by Rios Gonzalez MD at [facility] MAIN OR ??? PRO LAMINEC/FACETECT/FORAMIN, LUMBAR 1 SEG N/A 07/11/2021 LAMINECTOMY, FACETECTOMY & FORAMINOTOMY,LUMBAR, ONE LEVEL (WRVU 15.37) performed by Rios Gonzalez MD at [facility] MAIN OR ??? PRO LAP, CHOLECYSTECTOMY/GRAPH 11/04/2012 LAPAROSCOPIC CHOLECYSTECTOMY WITH CHOLANGIOGRAM performed by Abel Carlton MD at [facility] OR ??? PRO LUMBAR SPINE FUSN, POST TECH Bilateral 07/11/2021 ARTHRODESIS, LUMBAR SPINE, SINGLE LEVEL (WRVU 23.53) performed by Rios Gonzalez MD at [facility] MAIN OR ??? PRO POSTERIOR SEGMENTAL INSTRUMENTATION 3-6 VRT SEG Bilateral 07/11/2021 POST SPINAL INSTRUMENTATION, 3-6 VERTEBRA, NON SEGMENTAL (WRVU 12.56) performed by Rios Gonzalez MD at [facility] MAIN OR ??? PRO SPINE FUSN, POST TECH, EA ADDNL SGMT Bilateral 07/11/2021 ARTHRODESIS, POSTERIOR VERTEBRAL EA.ADD. SEGMENT (WRVU 6.43) performed by Rios Gonzalez MD at [facility] MAIN OR ??? PRO UPPER GI ENDOSCOPY, BIOPSY N/A 10/26/2015 UPPER GASTROINTESTINAL ENDOSCOPY,WITH BIOPSY SINGLE OR MULTIPLE performed by Apolinar Sepulveda MDat [facility] ENDOSCOPY ??? PRO UPPER GI ENDOSCOPY, DIAGNOSTIC N/A 10/26/2015 EGD, UPPER GI ENDOSCOPY performed by Apolinar Sepulveda MD at [facility] ENDOSCOPY ??? PRO UPPER GI ENDOSCOPY, DIAGNOSTIC N/A 10/02/2016 EGD, UPPER GI ENDOSCOPY performed by Justin Starkey MD at [facility] ENDOSCOPY ??? PRO UPPER GI ENDOSCOPY, W/DIR SUBMUC INJ 11/05/2017 EGD, W DIRECTED SUBMUCOSAL INJECTION(S) performed by Osmany Keller MD at [facility] ENDOSCOPY Active Non-Hospital Problems Diagnosis [...] outlinedin this evaluation. Time IN / OUT: 8087-1948 Total Minutes, Physical Therapy: 43 Malgorzata Fish PT Pager: [phone] Physical Therapy Inpatient Rehabilitation Department * Samuel [...] STRUCTUAL performed by Rios Gonzalez MD at [facility] MAIN OR ??? PRO ANTERIOR INSTRUMENTATION 2-3 VERTEBRAL SEGMENTS 09/08/2013 @ANT. SPINAL INSTRUMENTATION, 2-3 VERTEBRA, SEGMENTED performed by Rios Gonzalez MD at [facility] [place] ??? PRO ARTHRD ANT INTERDY CERVCL BELW C2 EA ADDL NTRSPC 09/08/2013 @ARTHRODESIS ANT INTERBDY CERVCL BELOW C2 EA ADDL INTRSPACE performed by Rios Gonzalez MD at [facility] MAIN OR ??? PRO ARTHRODESIS, ANT INTERBODY,DECOMPRESSION; CERVICAL BELOW C2 09/08/2013 ARTHRODESIS, ANT INTERBODY,DECOMPRESSION; CERVICAL BELOW C2 performed by Rios Gonzalez MD at [facility] MAIN OR ??? PRO AUTOGRAFT SPINE SURGERY MORSELIZED SEP INCISION Bilateral 07/11/2021 AUTOGRAFT FOR SPINE SURGERY ONLY; MORSELIZED (THROUGH SEPARATE SKIN OR FASCIAL INCISION) (WRVU 2.79) performed by Rios Gonzalez MD at [facility] MAIN OR ??? PRO DECOMPRESS SPINAL CORD, 1 SEG Right 08/31/2014 TRANSPEDICULAR LUMBAR DECOMPRESSION SPINAL CORD,EQUINA & NERVE ROOTS, ONE LVL. performed by Rios Gonzalez MD at [facility] MAIN OR ??? PRO DECOMPRESS SPINAL CORD, 1 SEG N/A 07/11/2021 TRANSPEDICULAR LUMBAR DECOMPRESSION SPINAL CORD,EQUINA & NERVE ROOTS, ONE LVL. (WRVU 21.86) performed by Rios Gonzalez MD at [facility] MAIN OR ??? PRO LAMINEC/FACETECT/FORAMIN, EACH ADDNL Bilateral 07/11/2021 ADD'L INTERSPACES CX., THORACIC, LUMBAR (WRVU 3.47) performed by Rios Gonzalez MD at [facility] MAIN OR ??? PRO LAMINEC/FACETECT/FORAMIN, LUMBAR 1 SEG N/A 07/11/2021 LAMINECTOMY, FACETECTOMY & FORAMINOTOMY,LUMBAR, ONE LEVEL (WRVU 15.37) performed by Rios Gonzalez MD at [facility] MAIN OR ??? PRO LAP, CHOLECYSTECTOMY/GRAPH 11/04/2012 LAPAROSCOPIC CHOLECYSTECTOMY WITH CHOLANGIOGRAM performed by Abel Carlton MD at [facility] OR ??? PRO LUMBAR SPINE FUSN, POST TECH Bilateral 07/11/2021 ARTHRODESIS, LUMBAR SPINE, SINGLE LEVEL (WRVU 23.53) performed by Rios Gonzalez MD at [facility] MAIN OR ??? PRO POSTERIOR SEGMENTAL INSTRUMENTATION 3-6 VRT SEG Bilateral 07/11/2021 POST SPINAL INSTRUMENTATION, 3-6 VERTEBRA, NON SEGMENTAL (WRVU 12.56) performed by Rios Gonzalez MD at [facility] OR ??? PRO SPINE FUSN, POST TECH, EA ADDNL SGMT Bilateral 07/11/2021 ARTHRODESIS, POSTERIOR VERTEBRAL EA.ADD. SEGMENT (WRVU 6.43) performed by Rios Gonzalez MD at [facility] MAIN OR ??? PRO UPPER GI ENDOSCOPY, BIOPSY N/A 10/26/2015 UPPER GASTROINTESTINAL ENDOSCOPY,WITH BIOPSY SINGLE OR MULTIPLE performed by Apolinar Sepulveda MDat [facility] ENDOSCOPY ??? PRO UPPER GI ENDOSCOPY, DIAGNOSTIC N/A 10/26/2015 EGD, UPPER GI ENDOSCOPY performed by Apolinar Sepulveda MD at [facility] ENDOSCOPY ??? PRO UPPER GI ENDOSCOPY, DIAGNOSTIC N/A 10/02/2016 EGD, UPPER GI ENDOSCOPY performed by Justin Starkey MD at [facility] ENDOSCOPY ??? PRO UPPER GI ENDOSCOPY, W/DIR SUBMUC INJ 11/05/2017 EGD, W DIRECTED SUBMUCOSAL INJECTION(S) performed by Osmany Keller MD at [facility] ENDOSCOPY Social History: Patient lives [...] and measurable assessment of functional outcome. Pager: [phone] Samuel Beverly OT 07/12/2021 Occupational Therapy Rehabilitation [...] Time Provider Department Center 08/10/2021 3:00 PM [facility] DX ROOM 2 Xray [facility] Rad 08/10/2021 3:40 PM Rios Gonzalez MD [facility] [place] [facility] Spine Attending I have seen and examined [...] Time Provider Department Center 08/10/2021 3:00 PM [facility] DX ROOM 2 MH Xray [facility] Rad 08/10/2021 3:40 PM Rios Gonzalez MD [facility] [place] Sp [facility] * Mahnaz Grijalva RN - 07/11/2021 5:57 [...] H&P Update Poppy Del Cid Arnoldo 1960 [id number] Patient seen in pre-op holding area today. [...] her. Yasmani Chaudhry, MSN, RN, [facility] N[facility] Tobacco Teenage Program Director [facility] Pager #[phone] * Initial Assessments - Monica Rivera RN [...] COVID test: Lab Results Component Value Date [id number] Not Detected 07/11/2021 Past medical History: Past [...] Manuel would be surrogate decision maker per [place] surrogate decision making law. (Only good for [...] 4 wheel walker) Home Address confirmed as: [address] [address] Social & Family Supports: All names listed below confirmed with patient as current and correct Extended Emergency Contact Information Primary Emergency Contact: José Manuel Mclaughlin [address] [place] [address] [facility] Mobile Relation: Spouse Secondary Emergency Contact: Chadd [place] [address] [facility] Relation: Child Mother: CamposLety [facility] Current Care Provided by: self Provides Primary [...] Information: Patient uses home O2 at night, 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 Has concentrator at home, no portables. Health/Prescription Coverage: Primary Insurance: MEDICARE Payor: MEDICARE / Plan: MEDICARE PART A & B / Product Type: *No Product type* / Secondary Insurance: Prescription Coverage: Yes Preferred Pharmacy: [facility] [address] [place] [id number] [facility] - [place], [place] - [facility] [address] [place] Status: Patient is a : No Primary Care Provider: KIARA Jesus [phone] Patient/Caregiver Goals of Treatment: recovery post surgery Potential Needs for Transition of Care: none Agency Referrals: referral in place to [facility] Transportation: no concerns Transportation Anticipated: family [...] planning. Office of Care Management Surgery Team [employer] Teacher'S Aide [email or web address] Pager #[phone] * Plan of Care - Georgette Zarate RN - 07/13/2021 2:24 AM EST OUTCOME EVALUATION NOTE: OUTCOME SUMMARY: A&Ox4, VSS on 2L NC, pain well controlled with medication (See MAR). Dressing over incision CDI, BAUDILIO having moderate serosanguineous output. Neurovascular checks remain unchanged, denies any numbness or tingling. Patient voiding frequently without difficulty, ambulating to [facility] x1 with FWW. Resting well in between [...] Operative Note Patient Name: Poppy Mclaughlin : [id number] MR#: [id number] Case Date: 07/11/2021 Surgeon: Surgeon(s) and Role: [...] fusion with right iliac crest bone graft (80984, 98891, 24354, 12232, 95307, 41294, 32472) Anesthesia: General Findings: There was severe foraminal [...] Gonzalez MD - 07/11/2021 11:03 AM EST [facility] [place] Patient Name: Poppy Mclaughlin : [id number] MR#: [id number] Case Date: 07/11/2021 Surgeon: Surgeon(s) and Role: * Rios Gonzalez MD - Primary * Deemtris Blakely MD - Resident Preoperative diagnosis: Degenerative [...] confirm bone 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 The sacral ala or [...] PM EST Laminec/Facetect/Forami n, Lumbar 1 Seg ([id number]) 07/11/2021 10:21 AM EST Spondylolisthesis of lumbar region Decompress Spinal Cord, 1 Seg (07982) 07/11/2021 10:21 AM EST Spondylolisthesis of lumbar region MODIFIER L5 07/11/2021 10:21 AM EST Spondylolisthesis of lumbar region MODIFIER L4 07/11/2021 10:21 AM EST Spondylolisthesis of lumbar region MODIFIER GLOBUS CREO 07/11/2021 10:21 AM EST Spondylolisthesis of lumbar region Autograft Spine Surgery Morselized Sep Incision ([id number]) 07/11/2021 10:21 AM EST Spondylolisthesis of lumbar region Posterior Segmental Instrumentation 3-6 Vrt Seg ([id number]) 07/11/2021 10:21 AM EST Spondylolisthesis of lumbar region Guevara Facetectomy&Foramot 1 Vrt Sgm Ea Addl Sgm ([id number]) 07/11/2021 10:21 AM EST Spondylolisthesis of lumbar region Arthrodesis Posterior/Pstlat Technique 1 Interspace Lumbar, Ea Add'L Interspace ([id number]) 07/11/2021 10:21 AM EST Spondylolisthesis of lumbar region Arthrodesis Posterior/Pstlat Technique 1 Interspace Lumbar ([id number]) 07/11/2021 10:21 AM EST Spondylolisthesis of lumbar region RAPID COVID-19 PCR ([facility]) Routine 07/11/2021 10:16 AM EST [...] AM EST) Lavender Hold Sample in lab. [facility] Blood Venous Draw / Unknown 07/14/2021 11:33 AM EST 07/14/2021 12:16 PM EST Jane León GRAB SETTER HEMATOLOGY ORDERABL ES Performing Organization Address City/[facility]/ZIP Co de Phone Number [facility] [place] [address] * Magnesium (07/14/2021 11:33 AM EST) Magnesium 0.87 0.69 - 1.07 mmol/L [facility] Blood 07/14/2021 11:3 3 AM EST 07/14/2021 12:15 PM EST Narrative Resulting Agency Comment Spec In Lab Jane León GRAB SETTER CHEMISTRY ORDERABLE S [facility] [place] [address] * Basic Metabolic Panel (non-fasting) (07/14/2021 11:33 AM EST) Glucose 115 65 - 199 mg/dL [facility] Comment:Diabetes: >=200 mg/d L plus symptoms Blood Urea Nitrogen 16 8 - 18 mg/dL [facility] Creatinine 0.96 0.70 - 1.20 mg/dL [facility] Sodium 137 135 - 145 mmol/L [facility] Potassium 4.4 3.5 - 5.0 mmol/L [facility] Comment: Please note: ??Patients with WBC >100,000 may have falsely elevated Potassium levels. ??For accurate Potassium quantification in these patients send serum separator tube (gold top) for subsequent determinations. ??Contact the Clinical Chemistry Laboratory if there are any questions. Chloride 99 98 - 107 mmol/L [facility] Carbon Dioxide 27 22 - 31 mmol/L [facility] Anion Gap 11 5 - 15 mmol/L [facility] Calcium 9.8 8.5 - 10.5 mg/dL [facility] Est Glomerular Filtration Rate 65 >=60 mL/min/1. 73 m?? [facility] Comment: This patient? s [...] Lab Jane León APRN CHEMISTRY ORDERABLE S [facility] [place] [address] * (ABNORMAL) Magnesium (07/13/2021 9:26 AM EST) Magnesium 0.65(L) 0.69 - 1.07 mmol/L [facility] Blood 07/13/2021 9:26 AM EST 07/13/2021 9:53 AM EST Narrative Resulting Agency Comment Spec In Lab Jane León APRN CHEMISTRY ORDERABLE S [facility] [place] [address] * (ABNORMAL) Basic Metabolic Panel (non-fasting) (07/13/2021 9:26 AM EST) Glucose 146 65 - 199 mg/dL [facility] Comment:Diabetes: >=200 mg/d L plus symptoms Blood Urea Nitrogen 20(H) 8 - 18 mg/dL [facility] Creatinine 1.11 0.70 - 1.20 mg/dL [facility] Sodium 137 135 - 145 mmol/L [facility] Potassium 4.1 3.5 - 5.0 mmol/L [facility] Comment: Please note: ??Patients with WBC >100,000 may have falsely elevated Potassium levels. ??For accurate Potassium quantification in these patients send serum separator tube (gold top) for subsequent determinations. ??Contact the Clinical Chemistry Laboratory if there are any questions. Chloride 102 98 - 107 mmol/L [facility] Carbon Dioxide 26 22 - 31 mmol/L [facility] Anion Gap 9 5 - 15 mmol/L [facility] Calcium 9.0 8.5 - 10.5 mg/dL [facility] Est Glomerular Filtration Rate 55(L) >=60 mL/min/1. 73 m?? [facility] Comment: This patient? s [...] APRN CHEMISTRY ORDERABLE S Performing Organization Address City/State/[facility] Co de Phone Number [facility] [place] [address] * (ABNORMAL) Differential, Automated (07/12/2021 2:20 AM EST) Neutrophil % 83.4 % [facility] Neutrophil Absolute 11.61(H) 1.70 - 6.10 x10(3)/mc L [facility] Lymph % 10.9 % [facility] Lymphocytes Abs 1.5 0.9 - 3.2 x10(3)/mc L [facility] Monocyte % 5.2 % [facility] Monocyte Abs 0.7 0.3 - 0.9 x10(3)/mc L [facility] Eos % 0.0 % [facility] Eosinophils Abs 0.0 0.0 - 0.4 x10(3)/mc L [facility] Basophil % 0.1 % [facility] Baso Absolute 0.0 0.0 - 0.1 x10(3)/mc L [facility] Immature Gran % 0.40 % [facility] Comment: Immature granulocytes(IG's)percentage and absolute count will include metamyelocytes, myelocytes, and promyelocytes. Blood smears from CBCs yielding IG's will be scanned manually for concordance. If this scan disagrees with the automated IG or if promyelocytes are noted, a manual differential will be performed. Immature Gran Absolute 0.05(H) 0.00 - 0.04 x10(3)/ L [facility] Blood 07/12/2021 2:20 AM EST 07/12/2021 2:34 AM EST Narrative Resulting Agency Comment Spec In Lab Demetris Blakely MD HEMATOLOGY ORDERABLE S [facility] [place] [address] * (ABNORMAL) Hemogram (07/12/2021 2:20 AM EST) White Blood Cell 13.9(H) 4.0 - 9.5 x10(3)/ L [facility] Red Blood Cell 3.42(L) 4.00 - 5.21 x10(6)/[facility] Hemoglobin 10.2(L) 11.7 - 15.5 g/dL [facility] Hematocrit 32.2(L) 35.7 - 45.8 % [facility] Mean Cell Volume 94.2 82.6 - 94.4 [facility] Mean Cell Hemoglobin 29.8 27.1 - 32.0 pg [facility] Mean Cell Hemoglobin Concentration 31.7 31.7 - 35.0 g/dL [facility] Platelet 168 145 - 357 x10(3)/ L [facility] RDW Standard Deviation 47.3(H) 37.0 - 46.0 [facility] RDW coefficient of variation 13.7 11.5 - 14.1 % [facility] Mean Platelet Volume 11.6 7.6 - 12.9 [facility] NRBC% auto 0.0 % [facility] NRBC Absolute 0.000 0.000 - 0.000 x10(3)/ L [facility] Blood 07/12/2021 2:20 AM EST 07/12/2021 2:34 AM EST Narrative Resulting Agency Comment Spec In Lab Demetris Blakely MD HEMATOLOGY ORDERABLE S [facility] [place] [address] * (ABNORMAL) Basic Metabolic Panel (non-fasting) (07/12/2021 2:20 AM EST) Glucose 150 65 - 199 mg/dL [facility] Comment:Diabetes: >=200 mg/d L plus symptoms Blood Urea Nitrogen 17 8 - 18 mg/dL [facility] Creatinine 1.12 0.70 - 1.20 mg/dL [facility] Sodium 140 135 - 145 mmol/L [facility] Potassium 4.8 3.5 - 5.0 mmol/L [facility] Comment: Please note: ??Patients with WBC >100,000 may have falsely elevated Potassium levels. ??For accurate Potassium quantification in these patients send serum separator tube (gold top) for subsequent determinations. ??Contact the Clinical Chemistry Laboratory if there are any questions. Chloride 105 98 - 107 mmol/L [facility] Carbon Dioxide 25 22 - 31 mmol/L [facility] Anion Gap 10 5 - 15 mmol/L [facility] Calcium 8.6 8.5 - 10.5 mg/dL [facility] Comment:result rechecked-ng Est Glomerular Filtration Rate 54(L) >=60 mL/min/1. 73 m?? [facility] Comment: This patient? s [...] In Lab Rios Gonzalez MD CHEMISTRY ORDERABLES [facility] [place] [address] * XR Lumbar Spine 2 Or 3 [...] who have questions please contact the health customer care team coach that requested your imaging first. ? Narrative 07/11/2021 7:55 PM EST EXAMINATION: XR [...] patients who have questions please contactthe health customer care team coach that requested your imaging first. Rios Gonzalez MD IMG DX ORDERABLES * XR Fluoro No Rad <1Hr - OR Use (07/11/2021 2:33 PM EST) Narrative Dicom, Auditing User - 07/11/2021 2:34 PM EST This exam is auto-finalizing. No interpretation was done. Rios Gonzalez MD IMG FLUORO ORDERABLE S * COVID-19 PCR (07/11/2021 10:16 AM EST) SARS-CoV-2 RNA (Rapid) Not Detected Not Detected [facility] Comment: This result should be interpreted [...] using the Simplexa COVID-19 Direct Assay by [employer] as authorized by the FDA issued Emergency [...] Department of Pathology and Laboratory Medicine at [facility], certified under the Clinical Laboratory Improvement [...] fact sheets at the following FDA website: https://www.fda.gov/medical-devices/kbcvdjznaxw-fhoxqfz-3742-pcvjn-65-hmzqcwzeh- use-a elthsytwuiiei-rwbapoi-shwmqqq/yybwr-ewffavjxqpe-pgty SARS-CoV-2 Source [employer] Swab [facility] Nasopharyngeal Swab 07/11/20 10:16 AM EST 07/11/2021 11:24 AM EST Comment:Symptoms->Surveillan ce Narrative Resulting Agency Comment Spec In Lab Sanaz Coffey CRNA MICROBIOLOGY - GENER AL ORDERABLES [facility] [place] [address] documented in this encounter Visit Diagnoses Diagnosis [...] (Symbicort) 160-4.5 mcg/actuation inhaler 2 Inhalation 2 .Inhalation , Inhalation, 2 TIMES DAILY, First dose on Sat07/13/21 at 2100, Until Discontinued, Routine Given 07/14/2021 9:30 AM EST 2 .Inhalat ion Given 07/13/2021 9:26 PM EST 2 .Inhalation BUpivacaine (pf) (Marcaine) (2.5 mg/mL) 0.25% injection [...] Padilla RN)1406 (Given - Provider: Nohemy Ribera LPN)2231 (Given - Provider: Kalie Gomez, KAMLA) 0514 (Given - Provider: Georgette Zarate, KAMLA) [...] Alisha Hawkins, KAMLA)2309 (Given - Provider: Robert Blankenship, KAMLA) 0526 (Given - Provider: Robert Blankenship, KAMLA)1255 (Given - Provider: Lcuretia Samuel RN) ascorbic acid (Vitamin C) (Vitamin [...] (Symbicort) 160-4.5 mcg/actuation inhaler 2 Inhalation 2 .Inhalation , Inhalation, 2 TIMES DAILY, First dose on Sat07/13/21 at 2100, Until Discontinued, Routine 212 (Given - Provider: Robert Blankenship RN) 0930 [...] refused)2003 (Given - Provider: Georgette Zarate RN) 0845 (Given - Provider: Gloria Zaragoza LPN)2124 (Given [...] 2125 (Given - Provider: Robert Blankenship, KAMLA) senna-docusate (Pericolace) 8.6-50 mg per tablet 2 [...] 0603 (See Alternative - Provider: Shobha Padilla RN)1051 [...] If pain not relieved, call provider., Routine 602 (See Alternative - Provider: Shobha Padilla RN)105 [...] Provider: Georgette Zarate RN) oxyCODONE (Roxicodone) tablet 5 mg(Linked Group 2) 5 mg, Oral, EVERY 4 HOURS PRN, Starting on Sat07/13/21 at 1814, Until Sat07/14/21 at 1610, Pain, moderate to severe pain (6-10) Hold for sedation, If pain not relieved, call provider., Routine 2126 (Given - Provider: Robert Blankenship, KAMLA) 05 (Given - Provider: Robert Blankenship RN)09 (See Alternative - Provider: Lucretia Samuel, KAMLA)1311 [...] Routine documented in this encounter Care Teams Gripper Installer Relationship Specialty Start Date End Date Cb Florence PA [address] [place] [address] PCP - General Family Medicine 04/08/20 documented as of this encounter
--- OUTSIDE RECORDS SUMMARY | 2024-06-15 10:27 | XMS_ITS | Encounter Summary ---
[place] [address] Care Team Providers Care Petroleum Refinery Operator Name Role Phone Cb Florence Primary Care Provider +1- [phone] Reason for Visit * Reason Comments Back Pain lower mid back to lo wer back into RT hip * Consultation (Routine) - Closed Specialty Diagnoses / Procedures Referred By Contac t Referred To Contact [facility] Diagnoses Dorsalgia, unspecified Spine - Chronic low back pain/ RLE pain/ h/o L4-L5 diskectomy 2014 w/ AMP/ MRI 02/21/[address] [facility] Cb Florence PA [address] [place] [address] [facility] [place] [address] Referral ID Status Reason Start Date Expiration Date Visits Re quested Visits Authorized [id number] Closed 03/10/2021 03/10/2022 1 1 Encounter Details Date Type Department Care Team (Latest Contact Info) Description 05/04/2021 8:40 AM EDT Office Visit [place] [address] Rios Acuna MD [facility] [place] [address] Spondylolisthesis of lumbar region; Pain in extremity, [...] who have questions please contact the health managed care liaison that requested your imaging first. ? Narrative [...] patients who have questions please contactthe health managed care liaison that requested your imaging first. Rios Acuna MD IMG DX ORDERABLES * Prothrombin Time (07/11/2021 9:01 AM EST) Prothrombin Time 11.2 9.4 - 12.5 sec [facility] International Normalization Ratio 1.0 [facility] Comment: An INR [...] Lab Rios Acuna MD HEMATOLOGY ORDERABLE S [facility] [place] [address] * (ABNORMAL) Basic Metabolic Panel (non-fasting) (07/11/2021 9:01 AM EST) Glucose 84 65 - 199 mg/dL [facility] Comment:Diabetes: >=200 mg/d L plus symptoms Blood Urea Nitrogen 22(H) 8 - 18 mg/dL [facility] Creatinine 1.26(H) 0.70 - 1.20 mg/dL [facility] [...] mmol/L [facility] Carbon Dioxide 26 22 - 31 mmol/L [facility] Anion Gap 11 5 - 15 mmol/L [facility] Calcium 9.7 8.5 - 10.5 mg/dL [facility] Est Glomerular Filtration Rate 47(L) >=60 mL/min/1. 73 m?? [facility] Comment: This patient? s [...] In Lab Rios Acuna MD CHEMISTRY ORDERABLES [facility] [place] [address] * XR Lumbar Spine 2 Or 3 [...] who have questions please contact the health managed care liaison that requested your imaging first. ? Narrative [...] patients who have questions please contactthe health managed care liaison that requested your imaging first. Rios Acuna MD IMG DX ORDERABLES documented in this encounter Visit Diagnoses Diagnosis Spondylolisthesis of lumbar region Acquired spondylolisthesis Pain in extremity, unspecified extremity Spondylolisthesis of lumbar region Acquired spondylolisthesis Spondylolisthesis of lumbar region Acquired spondylolisthesis documented in this encounter Care Teams Petroleum Refinery Operator Relationship Specialty Start Date End Date Cb Florence PA [address] [place] [address] PCP - General Family Medicine 04/08/20 documented as of this encounter
--- OUTSIDE RECORDS SUMMARY | 2024-06-15 10:27 | XMS_ITS | Encounter Summary ---
Author Organization [facility] Address [facility] [place] [address] Care Team Providers Care Rn Care Transition Name Role Phone Cb Florence Primary Care Provider +1- [phone] Encounter Details Date Type Department Care Team (Latest Contact Info) Description 05/04/2021 9:47 AM EDT - 05/04/2021 11:59 PM EDT Hospital Encounter XRay at [address] [place] [address] Rios Acuna MD [facility] [place] [address] Spondylolisthesis of lumbar region Discharge Disposition: Home [...] MOUTH ONCE DAILY 03/17/2021 Narcan 4 mg/actuation [place], Non-Aerosol ADMINISTER A SINGLE SPRAY INTRANASALLY INTO [...] sulfamethoxazole-trim ethoprim DS (Bactrim DS) 800-160 mg TabletIndications: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 ? Electronically signed by: Kermit Reyna MD, [facility] ([phone]), at 05/04/2021 10:18 AM Narrative 05/04/2021 10:18 AM EDT EXAMINATION: XR [...] patients who have questions please contactthe health manager medicare marketing that requested your imaging first. Electronically signed by: Kermit Reyna MD, [facility]([phone]), at 05/04/2021 10:18 AM Rios Acuna MD IMG DX ORDERABLES documented in this encounter Visit Diagnoses Diagnosis Spondylolisthesis of lumbar region Acquired spondylolisthesis documented in this encounter Care Teams Rn Care Transition Relationship Specialty Start Date End Date Cb Florence PA [address] [place] [address] PCP - General Family Medicine 04/08/20 documented as of this encounter
--- OUTSIDE RECORDS SUMMARY | 2024-06-15 10:27 | XMS_ITS | Encounter Summary ---
Author Organization [facility] [place] [address] Care Team Providers Care Tube Pusher Name Role Phone Cb Florence Primary Care Provider +1- [phone] Encounter Details Date Type Department Care Team (Late st Contact Info) Description 01/20/2021 3:30 PM EDT Office [place] [address] Osmany Holloway MD [facility] [place] [address] Chronic obstructive pulmonary disease, unspecified COPD type; [...] CRITICAL CARE??MEDICINE Pulmonary and Critical Care Medicine [facility] [place] [address] Outpatient follow-up visit Follow-up 60 y.o. female [...] 3 times daily. 90 tablet 5 ??? Celenouch Ultra Blue Test Strip Strip USE 1 [...] DIRECTED ON PA ??? [employer] [facility] Face mask for nocturnal O2, and appropriate [...] tablet by mouth 2 times daily. 60 [id number] ??? SYMBICORT 160-4.5 mcg/actuation HFA Aerosol Inhaler Inhale 2 puffs into the lungs 2 times daily. ??? albuterol (PROVENTIL) 2.5 mg /3 mL (0.083 %) Solution for Nebulization Take 2.5 mg by nebulization every 4 hours as needed for Wheezing. ??? OXYGEN-AIR DELIVERY SYSTEMS ( CLASSIC OXYGEN CONCENTRATOR [facility]) 3 L by [facility].(Non-Drug; Combo Route) route nightly. ??? diphenoxylate-atropine (LOMOTIL) [...] [facility] [place].(Non-Drug; Combo Route) route daily. ??? promethazine (PHENERGAN) [...] 25 minute visit was spent in direct oxjf-as-vzkj counseling with the patient regarding the management [...] morphotypes suggestive of normal upper respiratory caryn [facility] Gram Stain Moderate Neutrophils seen Moderate squamous epithelial cells Many mixed bacterial morphotypes suggestive of normal upper respiratory caryn [facility] Sputum Expectorated 01/21/20 4:40 PM EDT 01/20/2021 5:04 PM EDT Narrative Resulting Agency Comment Spec In Lab Osmany Overton MD MICROBIOLOGY - GENE RAL ORDERABLES Performing Organization Address City/[facility]/ZIP Co de Phone Number [facility] [place] [address] * AFB culture Sputum Expectorated (01/20/2021 4:40 PM EDT) Acid Fast Bacilli Culture No Acid Fast Bacilli isolated If active tuberculosis is suspected, the patient should be on AIRBORNE PRECAUTIONS. Call Infection Prevention for assistance if needed. [facility] Acid Fast Stain No Acid Fast Bacilli seen [facility] Sputum Expectorated 01/21/20 4:40 PM EDT 01/20/2021 5:05 PM EDT Narrative Resulting Agency Comment Spec In Lab Osmany Overton MD MICROBIOLOGY - GENE RAL ORDERABLES Performing Organization Address City/[facility]/ZIP Co de Phone Number [facility] [place] [address] documented in this encounter Visit Diagnoses Diagnosis Chronic obstructive pulmonary disease, unspecified COPD type COPD, moderate Chronic airway obstruction, not elsewhere classified documented in this encounter Care Teams Tube Pusher Relationship Specialty Start Date End Date Cb Florence PA [address] [place] [address] PCP - General Family Medicine 04/08/20 documented as of this encounter
--- OUTSIDE RECORDS SUMMARY | 2024-06-15 10:27 | XMS_ITS | Encounter Summary ---
Author Organization [facility] [place] [address] Care Team Providers Care Trimming Press Operator Name Role Phone Cb Florence Primary Care Provider +1- [phone] Encounter Details Date Type Department Care Team (Late st Contact Info) Description 02/21/2021 Ancillary Procedure Radiology Library at [facility] [place] [address] Cb Florence PA [address] [place] [address] Social History Tobacco Use Types [...] MR Spine (02/21/2021 12:00 AM EDT) Narrative [facility] - 03/30/2021 10:59 AM EDT This exam is auto-finalizing. It's purpose is for storage only. Cb CRAIG IMG FILM LIBRARY O RDERABLES [place], [place] documented in this encounter Visit Diagnoses Not on filedocumented in this encounter Care Teams Trimming Press Operator Relationship Specialty Start Date End Date Cb Florence PA [address] [place] [address] PCP - General Family Medicine 04/08/20 documented as of this encounter
--- OUTSIDE RECORDS SUMMARY | 2024-06-15 10:27 | XMS_ITS | Encounter Summary ---
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
--- OUTSIDE RECORDS SUMMARY | 2024-06-15 10:27 | XMS_ITS | Encounter Summary ---
Author Organization [facility] [place] [address] Care Team Providers Care Customer Support Engineer Name Role Phone Cb Florence Primary Care Provider +1- [phone] Reason for Visit * Reason Comments Follow-up Encounter Details Date Type Department Care Team (Late st Contact Info) Description 07/29/2020 3:30 PM EST Office [place] [address] Osmany Holloway MD [facility] [place] [address] COPD, moderate; PAH (pulmonary artery hypertension) Social [...] CRITICAL CARE??MEDICINE Pulmonary and Critical Care Medicine [facility] [place] [address] Outpatient follow-up visit Follow-up 59 y.o. female [...] 3 times daily. 90 tablet 5 ??? Green Chipsuch Ultra Blue Test Strip Strip USE 1 [...] tablet by mouth 2 times daily. 60 [id number] ??? baclofen (LIORESAL) 10 mg Tablet Take 10 mg by mouth 3 times daily. Takes 20mg at night ??? SYMBICORT 160-4.5 mcg/actuation HFA Aerosol Inhaler Inhale 2 puffs into the lungs 2 times daily. ??? OXYGEN-AIR DELIVERY SYSTEMS ( CLASSIC OXYGEN CONCENTRATOR MISC) 3 L by [facility].(Non-Drug; Combo Route) route nightly. ??? diphenoxylate-atropine (LOMOTIL) [...] 25 minute visit was spent in direct [id number] counseling with the patient regarding the management [...] / FVC LLN 68 % COMPAS PFT [id number] Actual Pre-BD 0.68 L/s COMPAS PFT [id number] Pre-BD % of Predicted 32 % COMPAS PFT [id number] Predicted 2.14 L/s COMPAS PFT [id number] Pre-BD Z-Score -2.58 COMPAS PFT DLCO Hb [...] diseases documented in this encounter Care Teams Customer Support Engineer Relationship Specialty Start Date End Date Cb Florence [address] [place] [address] PCP - General Family Medicine 04/08/20 documented as of this encounter
--- OUTSIDE RECORDS SUMMARY | 2024-06-15 10:27 | XMS_ITS | Encounter Summary ---
Author Organization [facility] [address] Care Team Providers Care Nail Puller Name Role Phone Cb Florence Primary Care Provider +1- [phone] Reason for Visit * Auth/Cert Specialty Diagnoses [...] Expiration Date Visits Re quested Visits Authorized [id number] 1 1 Encounter Details Date Type Department Care Team (Latest Contact Info) Description 07/11/2021 8:15 AM EST Laboratory Appointment Lab [address] [place] [address] Spondylolisthesis of lumbar region; Pain in extremity, [...] Screen Validity (07/11/2021 9:01 AM EST) Pathologist [facility] T&S only valid at [facility] LABORATORY Comment:This Type and Screen result is only valid at the [facility] Hospital Blood 07/11/2021 9:01 AM EST 07/11/2021 9:07 AM EST Narrative Resulting Agency Comment Spec In Lab Rios Acuna MD BLOOD BANK LAB ORDER DAMARIS [facility] [place] [address] * ABORH Recheck Status (07/11/2021 9:01 AM EST) [facility] ABORH Type Recheck Completed [facility] Blood 07/11/2021 9:01 AM EST 07/11/2021 9:07 AM EST Narrative Resulting Agency Comment Spec In Lab Rios Acuna MD BLOOD BANK LAB ORDER DAMARIS Performing Organization Address City/[facility]/ZIP Co de Phone Number [facility] [place] [address] * (ABNORMAL) Differential, Automated (07/11/2021 9:01 AM EST) [facility] Neutrophil % 52.5 % [facility] Neutrophil Absolute 4.89 1.70 - 6.10 x10(3)/mc L [facility] Lymph % 38.5 % [facility] Lymphocytes Abs 3.6(H) 0.9 - 3.2 x10(3)/mc L [facility] Monocyte % 5.3 % [facility] Monocyte Abs 0.5 0.3 - 0.9 x10(3)/mc L [facility] Eos % 3.1 % [facility] Eosinophils Abs 0.3 0.0 - 0.4 x10(3)/mc L [facility] Basophil % 0.5 % [facility] Baso Absolute 0.0 0.0 - 0.1 x10(3)/ L [facility] Immature Gran % 0.10 % [facility] Comment: Immature granulocytes(IG's)percentage and absolute count will include metamyelocytes, myelocytes, and promyelocytes. Blood smears from CBCs yielding IG's will be scanned manually for concordance. If this scan disagrees with the automated IG or if promyelocytes are noted, a manual differential will be performed. Immature Gran Absolute 0.01 0.00 - 0.04 x10(3)/ L [facility] Blood 07/11/2021 9:01 AM EST 07/11/2021 9:10 AM EST Narrative Resulting Agency Comment Spec In Lab Rios Acuna MD HEMATOLOGY ORDERABLE S Performing Organization Address City/State/[facility] Co de Phone Number [facility] [place] [address] * (ABNORMAL) Hemogram (07/11/2021 9:01 AM EST) White Blood Cell 9.3 4.0 - 9.5 x10(3)/[facility]OR[facility] Red Blood Cell 4.26 4.00 - 5.21 x10(6)/ L [facility] Hemoglobin 12.6 11.7 - 15.5 g/dL [facility] Hematocrit 39.7 35.7 - 45.8 % [facility] Mean Cell Volume 93.2 82.6 - 94.4 fL [facility] Mean Cell Hemoglobin 29.6 27.1 - 32.0 pg [facility] Mean Cell Hemoglobin Concentration 31.7 31.7 - 35.0 g/dL [facility] Platelet 207 145 - 357 x10(3)/ L [facility] RDW Standard Deviation 46.5(H) 37.0 - 46.0 fL [facility] RDW coefficient of variation 13.7 11.5 - 14.1 % [facility] Mean Platelet Volume 11.1 7.6 - 12.9 fL [facility] NRBC% auto 0.0 % [facility] NRBC Absolute 0.000 0.000 - 0.000 x10(3)/mc L [facility] Blood 07/11/2021 9:01 AM EST 07/11/2021 9:10 AM EST Narrative Resulting Agency Comment Spec In Lab Rios Acuna MD HEMATOLOGY ORDERABLE S Performing Organization Address City/[facility]/ZIP Co de Phone Number [facility] [place] [address] * Antibody screen (07/11/2021 9:01 AM EST) Ab Screen Interp Negative [facility] Expires at [id number] on: 07/14/2021 [facility] Blood 07/11/2021 9:01 AM EST 07/11/2021 9:07 AM EST Narrative Resulting Agency Comment Spec In Lab Rios Acuna MD BLOOD BANK LAB ORDER DAMARIS Performing Organization Address City/[facility]/ZIP Co de Phone Number [facility] [place] [address] * ABO/Rh Typing (07/11/2021 9:01 AM EST) ABORH Type A Pos [facility] Blood 07/11/2021 9:01 AM EST 07/11/2021 9:07 AM EST Narrative Resulting Agency Comment Spec In Lab Rios Acuna MD BLOOD BANK LAB ORDER DAMARIS Performing Organization Address City/[facility]/ZIP Co de Phone Number [facility] [place] [address] * (ABNORMAL) Basic Metabolic Panel (non-fasting) (07/11/2021 9:01 AM EST) Glucose 84 65 - 199 mg/dL [facility] Comment:Diabetes: >=200 mg/d L plus symptoms Blood Urea Nitrogen 22(H) 8 - 18 mg/dL [facility] Creatinine 1.26(H) 0.70 - 1.20 mg/dL [facility] Sodium 141 135 - 145 mmol/L [facility] Potassium 3.9 3.5 - 5.0 mmol/L [facility] Comment: Please note: ??Patients with WBC >100,000 may have falsely elevated Potassium levels. ??For accurate Potassium quantification in these patients send serum separator tube (gold top) for subsequent determinations. ??Contact the Clinical Chemistry Laboratory if there are any questions. Chloride 104 98 - 107 mmol/L [facility] Carbon Dioxide 26 22 - 31 mmol/L [facility] Anion Gap 11 5 - 15 mmol/L [facility] Calcium 9.7 8.5 - 10.5 mg/dL [facility] Est Glomerular Filtration Rate 47(L) >=60 mL/min/1. 73 m?? [facility] Comment: This patient? s [...] In Lab Rios Acuna MD CHEMISTRY ORDERABLES [facility] [place] [address] * Prothrombin Time (07/11/2021 9:01 AM EST) Prothrombin Time 11.2 9.4 - 12.5 sec [facility] International Normalization Ratio 1.0 [facility] Comment: An INR <2.0 indicates adequate [...] Lab Rios Acuna MD HEMATOLOGY ORDERABLE S [facility] [place] [place] [address] documented in this encounter Visit Diagnoses Diagnosis Spondylolisthesis of lumbar region Acquired spondylolisthesis Pain in extremity, unspecified extremity documented in this encounter Care Teams Nail Puller Relationship Specialty Start Date End Date Cb Florence PA [address] [place] [address] PCP - General Family Medicine 04/08/20 documented as of this encounter
--- OUTSIDE RECORDS SUMMARY | 2024-06-15 10:27 | XMS_ITS | Encounter Summary ---
Author Organization [facility] [place] [address] Care Team Providers Care Veneer Grader Name Role Phone Cb Florence Primary Care Provider +1- [phone] Encounter Details Date Type Department Care Team (Late st Contact Info) Description 07/14/2021 [place] [id number] Vj Reyes MD [facility] [place] [address] Social History Tobacco Use Types Packs/Day Years [...] Reyes MD - 07/14/2021 5:19 PM EST [facility] pharmacy called because only 26 pills of [...] on filedocumented in this encounter Care Teams Veneer Grader Relationship Specialty Start Date End Date Cb Florence PA [address] [place] [address] PCP - General Family Medicine 04/08/20 documented as of this encounter
--- OUTSIDE RECORDS SUMMARY | 2024-06-15 10:27 | XMS_ITS | Encounter Summary ---
Author Organization [facility] [place] [address] Care Team Providers Care Bottom Loader Name Role Phone Cb Florence Primary Care Provider +1- [phone] Reason for Visit * Auth/Cert Specialty Diagnoses [...] Expiration Date Visits Re quested Visits Authorized [id number] 1 1 Encounter Details Date Type Department Care Team (Late st Contact Info) Description 07/11/2021 10:22 AM EST Anesthesia Event [place] [address] Natali Zaldivar MD [facility] [place] [address] Anesthesia Record Procedure Summary Procedure Name Responsible [...] 1011; metacarpal vein (top of hand), right; awqy-[id number]-mrswcc catheter system; Anatomical Landmarks; 20 gauge; distraction; [...] dorsal arch vein (top of hand), left; wfvi-hxl-[id number] catheter system; Anatomical Landmarks; 18 gauge; Sanaz Coffey [employer]; no longer indicated, catheter/device intact; 07/14/21; 1342 07/11/21 1045 by Sanaz Coffey [employer] 07/14/21 1342 by Sanaz Greco Urethral Catheter 07/11/21; 1045; Surg gabby longer than 2 hours, Physician order; indwelling catheter with core temperature probe; 100% silicone; 14; inserted at this facility; 1; 5; 10; none; drainage bag to dependent drainage; 07/12/21; 0835 07/11/21 1045 by Ana Luisa Robertson 07/12/21 0835 by Nina Valenzuela LPN Drain/Device Site 07/11/21; 1458; Left ; lower; [...] Procedure Summary Date: 07/11/21 Room / Location: [facility] MAIN OR Anesthesia Start: 1022 Anesthesia Stop: [...] All Anesthesia Providers: Anesthesiologist: Natali Zaldivar MD [employer]: Beth Pinon CRNA; Sanaz Coffey CRNA Vitals [...] STRUCTUAL performed by Rios Acuna MD at [facility] MAIN OR ??? PRO ANTERIOR INSTRUMENTATION 2-3 VERTEBRAL SEGMENTS 09/08/2013 @ANT. SPINAL INSTRUMENTATION, 2-3 VERTEBRA, SEGMENTED performed by Rios Acuna MD at [facility] AGAPITO ??? PRO ARTHRD ANT INTERDY CERVCL BELW C2 EA ADDL NTRSPC 09/08/2013 @ARTHRODESIS ANT INTERBDY CERVCL BELOW C2 EA ADDL INTRSPACE performed by Rios Acuna MD at [facility] MAIN OR ??? PRO ARTHRODESIS, ANT INTERBODY,DECOMPRESSION; CERVICAL BELOW C2 09/08/2013 ARTHRODESIS, ANT INTERBODY,DECOMPRESSION; CERVICAL BELOW C2 performed by Rios Acuna MD at [facility] MAIN OR ??? PRO DECOMPRESS SPINAL CORD, 1 SEG Right 08/31/2014 TRANSPEDICULAR LUMBAR DECOMPRESSION SPINAL CORD,EQUINA & NERVE ROOTS, ONE LVL. performed by Rios Acuna MD at [facility] MAIN OR ??? PRO LAP, CHOLECYSTECTOMY/GRAPH 11/04/2012 LAPAROSCOPIC CHOLECYSTECTOMY WITH CHOLANGIOGRAM performed by Abel Carlton MD at [facility] MAIN OR ??? PRO UPPER GI ENDOSCOPY, BIOPSY N/A 10/26/2015 UPPER GASTROINTESTINAL ENDOSCOPY,WITH BIOPSY SINGLE OR MULTIPLE performed by Apolinar Sepulveda MDat [facility] ENDOSCOPY ??? PRO UPPER GI ENDOSCOPY, DIAGNOSTIC N/A 10/26/2015 EGD, UPPER GI ENDOSCOPY performed by Apolinar Sepulveda MD at [facility] ENDOSCOPY ??? PRO UPPER GI ENDOSCOPY, DIAGNOSTIC N/A 10/02/2016 EGD, UPPER GI ENDOSCOPY performed by Justin Starkey MD at [facility] ENDOSCOPY ??? PRO UPPER GI ENDOSCOPY, W/DIR SUBMUC INJ 11/05/2017 EGD, W DIRECTED SUBMUCOSAL INJECTION(S) performed by Osmany Keller MD at [facility] ENDOSCOPY Social History Tobacco Use ??? Smoking [...] consented to blood products. Plan discussed with HIGH S[employer]OL CO[employer]. Anesthesia Screening documented in this encounter Plan [...] mg documented in this encounter Care Teams Bottom Loader Relationship Specialty Start Date End Date Cb Florence PA [address] [place] [address] PCP - General Family Medicine 04/08/20 documented as of this encounter
--- OUTSIDE RECORDS SUMMARY | 2024-06-15 10:27 | XMS_ITS | Encounter Summary ---
Author Organization [facility] [address]a ronnah[address] [place] [address] Care Team Providers Care Department Mgr Name Role Phone Cb Florence Primary Care Provider [phone]- [phone] Reason for Visit * Auth/Cert Specialty Diagnoses [...] Expiration Date Visits Re quested Visits Authorized [id number] 1 1 Encounter Details Date Type Department Care Team (Latest Contact Info) Description 07/11/2021 9:12 AM EST - 07/14/2021 2:10 PM EST Hospital Encounter [address] [place] [address] Rios Gonzalez MD [facility] [place] [address] s/p Right L4-5 hemilaminectomy and L4-S1 instrumented [...] Poppy Mclaughlin Patient Age: 60 y.o. Language: Turkmen Race: White Ethnicity: Not nor Admit date: 07/11/2021 Discharge date and time: 07/14/2021 Attending Physician: Rios Gonzalez MD Discharge Physician: Rios Gonzalez MD Follow-up Recommendations for Providers: See discharge instructions for additional details. Future Appointments Date Time Provider Department Center 08/10/2021 3:00 PM [facility] DX ROOM 2 MH Xray [facility] Rad 08/10/2021 3:40 PM Rios Gonzalez MD [facility] Pain Sp [facility] Inpatient Provider Contact Information: Rios Gonzalez MD Spine Center: [phone] After hours and weekends, call [facility] Bessemer Bottom Maker, , and have the Orthopedic resident paged. [...] who have questions please contact the health healthcare receptionist that requested your imaging first. Electronically signed by: Bianca Mcdonnell MD, [facility] ([phone]), at 07/11/2021 7:55 PM Pending Studies and Lab Data at Discharge: * No orders in the log * Transfusions: No Discharge Conditions/Prognosis: Stable, awake, and alert. Mobilizing as noted above, pain controlled on oral medications. Discharge to: [place] [facility]: [facility]. PHONE: [phone] FAX: [phone] Updated Allergies/ADRs: Allergies Allergen Reactions ??? Pneumococcal [...] device Spcr Commonly known as: Joshua Aerosol [place] Enhancer 2 puffs by Misc.(Non-Drug; Combo Route) route daily. 2 puff Refills: 0 lisinopriL 10 mg Tab Commonly known as: Zestril daily. Refills: 0 loratadine 10 mg Tab Commonly known as: Claritin Take 10 mg by mouth daily. 10 mg Refills: 0 CLASSIC OXYGEN CONCENTRATOR MISC 3 L by [facility].(Non-Drug; Combo Route) route nightly. 3 L Refills: 0 Miscellaneous Medical Supply [facility] Face mask for nocturnal O2, and appropriate accessories. Quantity: 1 each Refills: PRN montelukast 10 mg Tab Commonly known as: Singulair Take 10 mg by mouth nightly. 10 mg Refills: 0 MULTIVITAMIN ORAL Take 2 tablets by mouth daily. 2 tablet Refills: 0 Narcan 4 mg/actuation [place] ADMINISTER A SINGLE SPRAY INTRANASALLY INTO ONE [...] as: NEURONTIN ipratropium 42 mcg (0.06 %) [place] Commonly known as: ATROVENT meloxicam 15 mg [...] them. 3. You should also take an bqox-ozq-ytmjcmo stool softener of laxative, such as Miriam-colace [...] please contact the Spine Center Prescription Lineat [phone]. PRESCRIPTION RENEWAL REQUESTS CAN TAKE UP TO 3 DAYS TO FILL. YOU WILL BE REQUIRED TO HANDICRAFT OR HOBBY SHOP MANAGER YOUR NARCOTIC REFILL PRESCRIPTION IN PERSON AT [facility] OR IT CAN BE [...] smoke-free lifestyle. You can also call local [place] or [place] quit lines for additional assistance. [place] Quit Line: 9-100-POYV-NOW Online at [employer] [place] Quit Line: 9-979-GDJT-NOW Online at [employer] PLEASE CALL US AT [phone] TO SPEAK WITH A SPINE CENTER NURSE [...] Numbers: Clinical issues, nurse questions, medication renewals: [phone] Gonzalez: [phone] Evenings after 5pm and weekends you may contact the Orthopaedic resident applications chemist: [phone], askthe air shovel operator to page the Orthopaedic resident Follow Up Appointments: 1. You will have follow-up appointments at [facility] as indicated in the ???Future Appointments and Orders?? section of your discharge summary. If X-rays have been ordered for you prior to this appointment you will need to report to the Radiology department, desk 3T, 1 hour prior to your spine center appointment. Future Appointments Date Time Provider Department Center 08/10/2021 3:00 PM [facility] DX ROOM 2 MH Xray [facility] Rad 08/10/2021 3:40 PM Rios Gonzalez MD [facility] Pain Sp [facility] General Instructions None Future Appointments and Orders Future Appointments and Orders Future Appointments Provider Department Dept Phone 08/10/2021 3:00 PM [facility] DX ROOM 2 XRay at [facility] Arrive at: [facility] [phone] Please go to [facility] ([place] Location). 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 PHONE: [phone] FAX: [phone] Start of care: 24 to 48 hours [...] Jesus [address] / [place] [address] All A agencies which cover the area of patient's residence have been reviewed, either verbally laila writing, and patient/family have chosen the home health care agency noted Questions: Agency name and contact information: [facility] Patient location post discharge: home What services are requested: Physical Therapy Start date: Responsible MD post discharge contact info: Primary Care Provider: KIARA Jesus [phone] Discharge References/Attachments SMOKING: STOPPING (NEPALI) documented in this encounter Discharge Instructions * Patient Instructions* Keren Hammond, NEWSPAPER CORRESPONDENT - 07/11/2021 4:53 PM EST Activity: 1. [...] them. 3. You should also take an lawr-usw-rscesas stool softener of laxative, such as Miriam-colace [...] please contact the Spine Center Prescription Lineat [phone]. PRESCRIPTION RENEWAL REQUESTS CAN TAKE UP TO 3 DAYS TO FILL. YOU WILL BE REQUIRED TO HANDICRAFT OR HOBBY SHOP MANAGER YOUR NARCOTIC REFILL PRESCRIPTION IN PERSON AT [facility] OR IT CAN BE [...] smoke-free lifestyle. You can also call local [place] or [place] quit lines for additional assistance. [place] Quit Line: 4-195-EAZC-NOW Online at [employer] [place] Quit Line: 9-637-ACPJ-NOW Online at [email or web address] PLEASE CALL US AT [phone] TO SPEAK WITH A SPINE CENTER NURSE [...] Numbers: Clinical issues, nurse questions, medication renewals: [phone] Gonzalez: [phone] Evenings after 5pm and weekends you may contact the Orthopaedic resident applications chemist: [phone], askthe air shovel operator to page the Orthopaedic resident Follow Up Appointments: 1. You will have follow-up appointments at [facility] as indicated in the ???Future Appointments and Orders?? section of your discharge summary. If X-rays have been ordered for you prior to this appointment you will need to report to the Radiology department, desk 3T, 1 hour prior to your spine center appointment. Future Appointments Date Time Provider Department Center 08/10/2021 3:00 PM [facility] DX ROOM 2 MH Xray [facility] Rad 08/10/2021 3:40 PM Rios Gonzalez MD [facility] Pain Sp [facility] * Attachments The following attachments cannot be sent through Care Everywhere. * SMOKING: STOPPING (NEPALI) documented in this encounter Medications at Time of Discharge Medication Sig Dispensed Refills Start Date End Date acetaminophen (Tylenol) 500 mg Tablet Take 2 tablets by mouth every 6 hours. 0 07/14/[address] (Cymbalta) 30 mg Capsule, Delayed Release(E.C.) TAKE 1 CAPSULE BY MOUTH ONCE DAILY 03/17/2021 Narcan 4 mg/actuation Alexis, Non-Aerosol ADMINISTER A SINGLE SPRAY INTRANASALLY INTO [...] CLASSIC OXYGEN CONCENTRATOR MISC) 3 L by [facility].(Non-Drug; Combo Route) route nightly. [...] Inhalational Spacing Device Spcr [facility]Non-[facility]rug; Combo Route) route daily. promethazine (PHENERGAN) 25 [...] Time Provider Department Center 08/10/2021 3:00 PM [facility] DX ROOM 2 Xray [facility] Rad 08/10/2021 3:40 PM Rios Gonzalez MD [facility] Pain Sp [facility] Spine Attending I have [...] STRUCTUAL performed by Rios Gonzalez MD at [facility] MAIN OR ??? PRO ANTERIOR INSTRUMENTATION 2-3 VERTEBRAL SEGMENTS 09/08/2013 @ANT. SPINAL INSTRUMENTATION, 2-3 VERTEBRA, SEGMENTED performed by Rios Gonzalez MD at [facility] [place] ??? PRO ARTHRD ANT INTERDY CERVCL BELW C2 EA ADDL NTRSPC 09/08/2013 @ARTHRODESIS ANT INTERBDY CERVCL BELOW C2 EA ADDL INTRSPACE performed by Rois Gonzalez MD at [facility] MAIN OR ??? PRO ARTHRODESIS, ANT INTERBODY,DECOMPRESSION; CERVICAL BELOW C2 09/08/2013 ARTHRODESIS, ANT INTERBODY,DECOMPRESSION; CERVICAL BELOW C2 performed by Rios Gonzalez MD at [facility] MAIN OR ??? PRO AUTOGRAFT SPINE SURGERY MORSELIZED SEP INCISION Bilateral 07/11/2021 AUTOGRAFT FOR SPINE SURGERY ONLY; MORSELIZED (THROUGH SEPARATE SKIN OR FASCIAL INCISION) (WRVU 2.79) performed by Rios Gonzalez MD at [facility] MAIN OR ??? PRO DECOMPRESS SPINAL CORD, 1 SEG Right 08/31/2014 TRANSPEDICULAR LUMBAR DECOMPRESSION SPINAL CORD,EQUINA & NERVE ROOTS, ONE LVL. performed by Rios Gonzalez MD at [facility] OR ??? PRO DECOMPRESS SPINAL CORD, 1 SEG N/A 07/11/2021 TRANSPEDICULAR LUMBAR DECOMPRESSION SPINAL CORD,EQUINA & NERVE ROOTS, ONE LVL. (WRVU 21.86) performed by Rios Gonzalez MD at [facility] MAIN OR ??? PRO LAMINEC/FACETECT/FORAMIN, EACH ADDNL Bilateral 07/11/2021 ADD'L INTERSPACES CX., THORACIC, LUMBAR (WRVU 3.47) performed by Rios Gonzalez MD at [facility] MAIN OR ??? PRO LAMINEC/FACETECT/FORAMIN, LUMBAR 1 SEG N/A 07/11/2021 LAMINECTOMY, FACETECTOMY & FORAMINOTOMY,LUMBAR, ONE LEVEL (WRVU 15.37) performed by Rios Gonzalez MD at [facility] MAIN OR ??? PRO LAP, CHOLECYSTECTOMY/GRAPH 11/04/2012 LAPAROSCOPIC CHOLECYSTECTOMY WITH CHOLANGIOGRAM performed by Abel Carlton MD at [facility] MAIN OR ??? PRO LUMBAR SPINE FUSN, POST TECH Bilateral 07/11/2021 ARTHRODESIS, LUMBAR SPINE, SINGLE LEVEL (WRVU 23.53) performed by Rios Gonzalez MD at [facility] MAIN OR ??? PRO POSTERIOR SEGMENTAL INSTRUMENTATION 3-6 VRT SEG Bilateral 07/11/2021 POST SPINAL INSTRUMENTATION, 3-6 VERTEBRA, NON SEGMENTAL (WRVU 12.56) performed by Rios Gonzalez MD at [facility] MAIN OR ??? PRO SPINE FUSN, POST TECH, EA ADDNL SGMT Bilateral 07/11/2021 ARTHRODESIS, POSTERIOR VERTEBRAL EA.ADD. SEGMENT (WRVU 6.43) performed by Rios Gonzalez MD at [facility] MAIN OR ??? PRO UPPER GI ENDOSCOPY, BIOPSY N/A 10/26/2015 UPPER GASTROINTESTINAL ENDOSCOPY,WITH BIOPSY SINGLE OR MULTIPLE performed by Apolinar Sepulveda MDat [facility] ENDOSCOPY ??? PRO UPPER GI ENDOSCOPY, DIAGNOSTIC N/A 10/26/2015 EGD, UPPER GI ENDOSCOPY performed by Apolinar Sepulveda MD at [facility] ENDOSCOPY ??? PRO UPPER GI ENDOSCOPY, DIAGNOSTIC N/A 10/02/2016 EGD, UPPER GI ENDOSCOPY performed by Justin Starkey MD at [facility] ENDOSCOPY ??? PRO UPPER GI ENDOSCOPY, W/DIR SUBMUC INJ 11/05/2017 EGD, W DIRECTED SUBMUCOSAL INJECTION(S) performed by Osmany Keller MD at [facility] ENDOSCOPY Social History: Patient lives w/ her [...] to obtain shower chair for home from [employer] and work with home OT on showering [...] Management, Balance, Recommendations and Discharge planning. Pager: [phone] JUSTIN ESPINO 07/13/2021 Occupational Therapy Rehabilitation Department * Monica Rivera RN - 07/13/2021 12:51 PM EST Phone call to [facility] re patient's home oxygen set up. Spoke to Jaclyn Nassar [phone] clarified that patient has portable oxygen concentrator at home and it has battery back up. Update to patient. Phone call from Mitch with [facility] informing that patient's front wheel walker will not be covered by medicare since patient purchased 4 wheel walker less than 5 years ago.Update to patient andspouse; spouse informed that he opts to purchase FWW at [facility], informed that patient will need FWW [...] plan as stated. Time IN / OUT: 4125-0948 Total Minutes, Physical Therapy: 30 Billing Code: 1 gait training, 1 therapeutic activity Malgorzata Fish PT Pager: [phone] Physical Therapy Inpatient Rehabilitation Department * Rios [...] Time Provider Department Center 08/10/2021 3:00 PM [facility] DX ROOM 2 Xray [facility] Rad 08/10/2021 3:40 PM Rios Gonzalez MD [facility] Pain Sp [facility] Spine Attending I have [...] referrals are placed. Patient requests referral to [facility]. PHONE: [phone] FAX: [phone] Ortho Care Located @ [facility] Center [place], [place] Equipment needed: Front wheel walker Expected date of discharge: 07/13/2021 Referral routed to the Manager Estate for matching with agency/vendor and to provide [...] STRUCTUAL performed by Rios Gonzalez MD at [facility] MAIN OR ??? PRO ANTERIOR INSTRUMENTATION 2-3 VERTEBRAL SEGMENTS 09/08/2013 @ANT. SPINAL INSTRUMENTATION, 2-3 VERTEBRA, SEGMENTED performed by Rios Gonzalez MD at [facility] [place] ??? PRO ARTHRD ANT INTERDY CERVCL BELW C2 EA ADDL NTRSPC 09/08/2013 @ARTHRODESIS ANT INTERBDY CERVCL BELOW C2 EA ADDL INTRSPACE performed by Rios Gonzalez MD at [facility] OR ??? PRO ARTHRODESIS, ANT INTERBODY,DECOMPRESSION; CERVICAL BELOW C2 09/08/2013 ARTHRODESIS, ANT INTERBODY,DECOMPRESSION; CERVICAL BELOW C2 performed by Rios Gonzalez MD at [facility] MAIN OR ??? PRO AUTOGRAFT SPINE SURGERY MORSELIZED SEP INCISION Bilateral 07/11/2021 AUTOGRAFT FOR SPINE SURGERY ONLY; MORSELIZED (THROUGH SEPARATE SKIN OR FASCIAL INCISION) (WRVU 2.79) performed by Rios Gonzalez MD at [facility] MAIN OR ??? PRO DECOMPRESS SPINAL CORD, 1 SEG Right 08/31/2014 TRANSPEDICULAR LUMBAR DECOMPRESSION SPINAL CORD,EQUINA & NERVE ROOTS, ONE LVL. performed by Rios Gonzalez MD at [facility] OR ??? PRO DECOMPRESS SPINAL CORD, 1 SEG N/A 07/11/2021 TRANSPEDICULAR LUMBAR DECOMPRESSION SPINAL CORD,EQUINA & NERVE ROOTS, ONE LVL. (WRVU 21.86) performed by Rios Gonzalez MD at [facility] MAIN OR ??? PRO LAMINEC/FACETECT/FORAMIN, EACH ADDNL Bilateral 07/11/2021 ADD'L INTERSPACES CX., THORACIC, LUMBAR (WRVU 3.47) performed by Rios Gonzalez MD at [facility] MAIN OR ??? PRO LAMINEC/FACETECT/FORAMIN, LUMBAR 1 SEG N/A 07/11/2021 LAMINECTOMY, FACETECTOMY & FORAMINOTOMY,LUMBAR, ONE LEVEL (WRVU 15.37) performed by Rios Gonzalez MD at [facility] MAIN OR ??? PRO LAP, CHOLECYSTECTOMY/GRAPH 11/04/2012 LAPAROSCOPIC CHOLECYSTECTOMY WITH CHOLANGIOGRAM performed by Abel Carlton MD at [facility] OR ??? PRO LUMBAR SPINE FUSN, POST TECH Bilateral 07/11/2021 ARTHRODESIS, LUMBAR SPINE, SINGLE LEVEL (WRVU 23.53) performed by Rios Gonzalez MD at [facility] OR ??? PRO POSTERIOR SEGMENTAL INSTRUMENTATION 3-6 VRT SEG Bilateral 07/11/2021 POST SPINAL INSTRUMENTATION, 3-6 VERTEBRA, NON SEGMENTAL (WRVU 12.56) performed by Rios Gonzalez MD at [facility] MAIN OR ??? PRO SPINE FUSN, POST TECH, EA ADDNL SGMT Bilateral 07/11/2021 ARTHRODESIS, POSTERIOR VERTEBRAL EA.ADD. SEGMENT (WRVU 6.43) performed by Rios Gonzalez MD at [facility] MAIN OR ??? PRO UPPER GI ENDOSCOPY, BIOPSY N/A 10/26/2015 UPPER GASTROINTESTINAL ENDOSCOPY,WITH BIOPSY SINGLE OR MULTIPLE performed by Apolinar Sepulveda MDat [facility] ENDOSCOPY ??? PRO UPPER GI ENDOSCOPY, DIAGNOSTIC N/A 10/26/2015 EGD, UPPER GI ENDOSCOPY performed by Apolinar Sepulveda MD at [facility] ENDOSCOPY ??? PRO UPPER GI ENDOSCOPY, DIAGNOSTIC N/A 10/02/2016 EGD, UPPER GI ENDOSCOPY performed by Justin Starkey MD at [facility] ENDOSCOPY ??? PRO UPPER GI ENDOSCOPY, W/DIR SUBMUC INJ 11/05/2017 EGD, W DIRECTED SUBMUCOSAL INJECTION(S) performed by Osmany Keller MD at [facility] ENDOSCOPY Active Non-Hospital Problems Diagnosis ??? Spondylolisthesis [...] outlinedin this evaluation. Time IN / OUT: 2508-0411 Total Minutes, Physical Therapy: 43 Malgorzata Fish PT Pager: [phone] Physical Therapy Inpatient Rehabilitation Department * Siria [...] holder ??? ENT disease 3- rhinitus dr laex ??? Headache(784.0) ? Hypertensive disease they have said my bp is running high ??? Skin disorder ?? acne Past Surgical History: Procedure Laterality Date ??? PRG UNLISTED DIAGNOSTIC GASTROENTEROLOGY PROCEDURE [address] jimenez ??? PRO ALLOGRAFT FOR SPINE SURGERY ONLY STRUCTURAL 09/08/2013 ALLOGRAFT FOR SPINE SURGERY ONLY; STRUCTUAL performed by Rios Gonzalez MD at [facility] MAIN OR ??? PRO ANTERIOR INSTRUMENTATION 2-3 VERTEBRAL SEGMENTS 09/08/2013 @ANT. SPINAL INSTRUMENTATION, 2-3 VERTEBRA, SEGMENTED performed by Rios Gonzalez MD at [facility] [place] ??? PRO ARTHRD ANT INTERDY CERVCL BELW C2 EA ADDL NTRSPC 09/08/2013 @ARTHRODESIS ANT INTERBDY CERVCL BELOW C2 EA ADDL INTRSPACE performed by Rios Gonzalez MD at [facility] MAIN OR ??? PRO ARTHRODESIS, ANT INTERBODY,DECOMPRESSION; CERVICAL BELOW C2 09/08/2013 ARTHRODESIS, ANT INTERBODY,DECOMPRESSION; CERVICAL BELOW C2 performed by Rios Gonzalez MD at [facility] MAIN OR ??? PRO AUTOGRAFT SPINE SURGERY MORSELIZED SEP INCISION Bilateral 07/11/2021 AUTOGRAFT FOR SPINE SURGERY ONLY; MORSELIZED (THROUGH SEPARATE SKIN OR FASCIAL INCISION) (WRVU 2.79) performed by Rios Gonzalez MD at [facility] MAIN OR ??? PRO DECOMPRESS SPINAL CORD, 1 SEG Right 08/31/2014 TRANSPEDICULAR LUMBAR DECOMPRESSION SPINAL CORD,EQUINA & NERVE ROOTS, ONE LVL. performed by Rios Gonzalez MD at [facility] MAIN OR ??? PRO DECOMPRESS SPINAL CORD, 1 SEG N/A 07/11/2021 TRANSPEDICULAR LUMBAR DECOMPRESSION SPINAL CORD,EQUINA & NERVE ROOTS, ONE LVL. (WRVU 21.86) performed by Rios Gonzalez MD at [facility] MAIN OR ??? PRO LAMINEC/FACETECT/FORAMIN, EACH ADDNL Bilateral 07/11/2021 ADD'L INTERSPACES CX., THORACIC, LUMBAR (WRVU 3.47) performed by Rios Gonzalez MD at [facility] MAIN OR ??? PRO LAMINEC/FACETECT/FORAMIN, LUMBAR 1 SEG N/A 07/11/2021 LAMINECTOMY, FACETECTOMY & FORAMINOTOMY,LUMBAR, ONE LEVEL (WRVU 15.37) performed by Rios Gonzalez MD at [facility] MAIN OR ??? PRO LAP, CHOLECYSTECTOMY/GRAPH 11/04/2012 LAPAROSCOPIC CHOLECYSTECTOMY WITH CHOLANGIOGRAM performed by Abel Carlton MD at [facility] MAIN OR ??? PRO LUMBAR SPINE FUSN, POST TECH Bilateral 07/11/2021 ARTHRODESIS, LUMBAR SPINE, SINGLE LEVEL (WRVU 23.53) performed by Riso Gonzalez MD at [facility] MAIN OR ??? PRO POSTERIOR SEGMENTAL INSTRUMENTATION 3-6 VRT SEG Bilateral 07/11/2021 POST SPINAL INSTRUMENTATION, 3-6 VERTEBRA, NON SEGMENTAL (WRVU 12.56) performed by Rios Gonzalez MD at [facility] OR ??? PRO SPINE FUSN, POST TECH, EA ADDNL SGMT Bilateral 07/11/2021 ARTHRODESIS, POSTERIOR VERTEBRAL EA.ADD. SEGMENT (WRVU 6.43) performed by Rios Gonzalez MD at [facility] MAIN OR ??? PRO UPPER GI ENDOSCOPY, BIOPSY N/A 10/26/2015 UPPER GASTROINTESTINAL ENDOSCOPY,WITH BIOPSY SINGLE OR MULTIPLE performed by Apolinar Sepulveda MDat [facility] ENDOSCOPY ??? PRO UPPER GI ENDOSCOPY, DIAGNOSTIC N/A 10/26/2015 EGD, UPPER GI ENDOSCOPY performed by Apolinar Sepulvdea MD at [facility] ENDOSCOPY ??? PRO UPPER GI ENDOSCOPY, DIAGNOSTIC N/A 10/02/2016 EGD, UPPER GI ENDOSCOPY performed by Justin Starkey MD at [facility] ENDOSCOPY ??? PRO UPPER GI ENDOSCOPY, W/DIR SUBMUC INJ 11/05/2017 EGD, W DIRECTED SUBMUCOSAL INJECTION(S) performed by Osmany Keller MD at [facility] ENDOSCOPY Social History: Patient lives w/ her [...] and measurable assessment of functional outcome. Pager: [phone] Samuel Beverly OT 07/12/2021 Occupational Therapy Rehabilitation [...] Time Provider Department Center 08/10/2021 3:00 PM [facility] DX ROOM 2 MH Xray [facility] Rad 08/10/2021 3:40 PM Rios Gonzalez MD [facility] Pain Sp [facility] Spine Attending I have [...] ??? Viral sepsis ??? Acquired hypothyroidism ??? ANEG (acute kidney injury) ??? ARDS (adult respiratory [...] Time Provider Department Center 08/10/2021 3:00 PM [facility] DX ROOM 2 MH Xray [facility] Rad 08/10/2021 3:40 PM Rios Gonzalez MD [facility] Pain Sp [facility] * Mahnaz Grijalva RN [...] [place] on . Pt will go to [facility] on way to her room. documented in this encounter H&P Notes * Rios Gonzalez MD - 07/11/2021 9:30 AM EST 24-Hour Pre-Operative H&P Update Poppy Mclaughlin 1960 [id number] Patient seen in pre-op holding area today. [...] Yasmani Chaudhry, MSN, RN, [facility] Tobacco P[employer] Roll [employer] [facility] Pager #[phone] * Initial Assessments - Monica Rivera RN [...] COVID test: Lab Results Component Value Date [id number] Not Detected 07/11/2021 Past medical History: Past [...] Manuel would be surrogate decision maker per [place] surrogate decision making law. (Only good for [...] 4 wheel walker) Home Address confirmed as: [address] [place] [address] [place] [address] Social & Family Supports: All names listed below confirmed with patient as current and correct Extended Emergency Contact Information Primary Emergency Contact: José Manuel Mclaughlin Address: [address] [place], [place] [address] [address] [facility] Mobile Relation: Spouse Secondary Emergency Contact: Chadd Ferrera [facility] [address] [facility] Relation: Child Mother: ZaneesperanzacobyLety [facility] Current Care Provided by: self Provides Primary [...] Information: Patient uses home O2 at night, 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 Has concentrator at home, no portables. Health/Prescription Coverage: Primary Insurance: MEDICARE Payor: MEDICARE / Plan: MEDICARE PART A & B / Product Type: *No Product type* / Secondary Insurance: Prescription Coverage: Yes Preferred Pharmacy: [facility] [address] [place] [address] [place] [id number] [facility] [address] Status: Patient is a : No Primary Care Provider: KIARA Jesus [phone] Patient/Caregiver Goals of Treatment: recovery post surgery Potential Needs for Transition of Care: none Agency Referrals: referral in place to [facility] Transportation: no concerns Transportation Anticipated: family or [...] planning. Office of Care Management Surgery Team Actuarial Consultant [email or web address] Pager #[phone] * Plan of Care - Georgette Zarate [...] Operative Note Patient Name: Poppy Pickeringthor : [id number] MR#: [id number] Case Date: 07/11/2021 Surgeon: Surgeon(s) and Role: [...] fusion with right iliac crest bone graft (20160, 28399, 56729, 68638, 41223, 14540, 13784) Anesthesia: General Findings: There was severe foraminal [...] Gonzalez MD - 07/11/2021 11:03 AM EST [facility] Operative Note Patient Name: Poppy Mclaughlin : [id number] MR#: [id number] Case Date: 07/11/2021 Surgeon: Surgeon(s) and Role: [...] confirm bone on all aspects of the pilot safety inspector hole. The sacral ala or transverse process [...] PM EST Laminec/Facetect/Forami n, Lumbar 1 Seg ([id number]) 07/11/2021 10:21 AM EST Spondylolisthesis of lumbar region Decompress Spinal Cord, 1 Seg (80114) 07/11/2021 10:21 AM EST Spondylolisthesis of lumbar region MODIFIER L5 07/11/2021 10:21 AM EST Spondylolisthesis of lumbar region MODIFIER L4 07/11/2021 10:21 AM EST Spondylolisthesis of lumbar region MODIFIER GLOBUS CREO 07/11/2021 10:21 AM EST Spondylolisthesis of lumbar region Autograft Spine Surgery Morselized Sep Incision ([id number]) 07/11/2021 10:21 AM EST Spondylolisthesis of lumbar region Posterior Segmental Instrumentation 3-6 Vrt Seg (35139) 07/11/2021 10:21 AM EST Spondylolisthesis of lumbar region Guevara Facetectomy&Foramot 1 Vrt Sgm Ea Addl Sgm ([id number]) 07/11/2021 10:21 AM EST Spondylolisthesis of lumbar region Arthrodesis Posterior/Pstlat Technique 1 Interspace Lumbar, Ea Add'L Interspace ([id number]) 07/11/2021 10:21 AM EST Spondylolisthesis of lumbar region Arthrodesis Posterior/Pstlat Technique 1 Interspace Lumbar ([id number]) 07/11/2021 10:21 AM EST Spondylolisthesis of lumbar region RAPID COVID-19 PCR ([facility]/APD/[facility]) Routine 07/11/2021 10:16 AM EST ADD'L INTERSPACES [...] AM EST) Lavender Hold Sample in lab. [facility] Blood Venous Draw / Unknown 07/14/2021 11:33 AM EST 07/14/2021 12:16 PM EST Jane León NEWSPAPER CORRESPONDENT HEMATOLOGY ORDERABL ES [facility] [place] [address] * Magnesium (07/14/2021 11:33 AM EST) Magnesium 0.87 0.69 - 1.07 mmol/L [facility] Blood 07/14/2021 11:3 3 AM EST 07/14/2021 12:15 PM EST Narrative Resulting Agency Comment Spec In Lab Jane León MANUELA CHEMISTRY ORDERABLE S [facility] [place] [address] * Basic Metabolic Panel (non-fasting) (07/14/2021 11:33 AM EST) Glucose 115 65 - 199 mg/dL [facility] Comment:Diabetes: >=200 mg/d L plus symptoms Blood Urea Nitrogen 16 8 - 18 mg/dL [facility] Creatinine 0.96 0.70 - 1.20 mg/dL [facility] Sodium 137 135 - 145 mmol/L [facility] Potassium 4.4 3.5 - 5.0 mmol/L [facility] Comment: Please note: ??Patients with WBC >100,000 may have falsely elevated Potassium levels. ??For accurate Potassium quantification in these patients send serum separator tube (gold top) for subsequent determinations. ??Contact the Clinical Chemistry Laboratory if there are any questions. Chloride 99 98 - 107 mmol/L [facility] Carbon Dioxide 27 22 - 31 mmol/L [facility] Anion Gap 11 5 - 15 mmol/L [facility] Calcium 9.8 8.5 - 10.5 mg/dL [facility] Est Glomerular Filtration Rate 65 >=60 mL/min/1. 73 m?? [facility] Comment: This patient? [...] Lab Jane León MANUELA CHEMISTRY ORDERABLE S [facility] [place] [address] * (ABNORMAL) Magnesium (07/13/2021 9:26 AM EST) Magnesium 0.65(L) 0.69 - 1.07 mmol/L [facility] Blood 07/13/2021 9:26 AM EST 07/13/2021 9:53 AM EST Narrative Resulting Agency Comment Spec In Lab Jane León MANUELA CHEMISTRY ORDERABLE S Performing Organization Address [facility] Co de Phone Number [facility] [place] [address] * (ABNORMAL) Basic Metabolic Panel (non-fasting) (07/13/2021 9:26 AM EST) Glucose 146 65 - 199 mg/dL [facility] Comment:Diabetes: >=200 mg/d L plus symptoms Blood Urea Nitrogen 20(H) 8 - 18 mg/dL [facility] Creatinine 1.11 0.70 - 1.20 mg/dL [facility] Sodium 137 135 - 145 mmol/L [facility] Potassium 4.1 3.5 - 5.0 mmol/L [facility] Comment: Please note: ??Patients with WBC >100,000 may have falsely elevated Potassium levels. ??For accurate Potassium quantification in these patients send serum separator tube (gold top) for subsequent determinations. ??Contact the Clinical Chemistry Laboratory if there are any questions. Chloride 102 98 - 107 mmol/L [facility] Carbon Dioxide 26 22 - 31 mmol/L [facility] Anion Gap 9 5 - 15 mmol/L [facility] Calcium 9.0 8.5 - 10.5 mg/dL [facility] Est Glomerular Filtration Rate 55(L) >=60 mL/min/1. 73 m?? [facility] Comment: This patient? [...] APRN CHEMISTRY ORDERABLE S Performing Organization Address City/State/[facility] Co de Phone Number [facility] [place] [address] * (ABNORMAL) Differential, Automated (07/12/2021 2:20 AM EST) Neutrophil % 83.4 % [facility] Neutrophil Absolute 11.61(H) 1.70 - 6.10 x10(3)/mc L [facility] Lymph % 10.9 % [facility] Lymphocytes Abs 1.5 0.9 - 3.2 x10(3)/mc L [facility] Monocyte % 5.2 % [facility] Monocyte Abs 0.7 0.3 - 0.9 x10(3)/mc L [facility] Eos % 0.0 % [facility] Eosinophils Abs 0.0 0.0 - 0.4 x10(3)/mc L [facility] Basophil % 0.1 % [facility] Baso Absolute 0.0 0.0 - 0.1 x10(3)/mc L [facility] Immature Gran % 0.40 % [facility] Comment: Immature granulocytes(IG's)percentage and absolute count will include metamyelocytes, myelocytes, and promyelocytes. Blood smears from CBCs yielding IG's will be scanned manually for concordance. If this scan disagrees with the automated IG or if promyelocytes are noted, a manual differential will be performed. Immature Gran Absolute 0.05(H) 0.00 - 0.04 x10(3)/mc L [facility] Blood 07/12/2021 2:20 AM EST 07/12/2021 2:34 AM EST Narrative Resulting Agency Comment Spec In Lab Demetris Blakely MD HEMATOLOGY ORDERABLE S [facility] [place] [address] * (ABNORMAL) Hemogram (07/12/2021 2:20 AM EST) White Blood Cell 13.9(H) 4.0 - 9.5 x10(3)/mc L [facility] Red Blood Cell 3.42(L) 4.00 - 5.21 x10(6)/mc L [facility] Hemoglobin 10.2(L) 11.7 - 15.5 g/dL [facility] Hematocrit 32.2(L) 35.7 - 45.8 % [facility] Mean Cell Volume 94.2 82.6 - 94.4 fL [facility] Mean Cell Hemoglobin 29.8 27.1 - 32.0 pg [facility] Mean Cell Hemoglobin Concentration 31.7 31.7 - 35.0 g/dL [facility] Platelet 168 145 - 357 x10(3)/mc L [facility] RDW Standard Deviation 47.3(H) 37.0 - 46.0 fL [facility] RDW coefficient of variation 13.7 11.5 - 14.1 % [facility] Mean Platelet Volume 11.6 7.6 - 12.9 fL [facility] NRBC% auto 0.0 % [facility] NRBC Absolute 0.000 0.000 - 0.000 x10(3)/mc L [facility] Blood 07/12/2021 2:20 AM EST 07/12/2021 2:34 AM EST Narrative Resulting Agency Comment Spec In Lab Demetris Blakely MD HEMATOLOGY ORDERABLE S [facility] [place] [address] * (ABNORMAL) Basic Metabolic Panel (non-fasting) (07/12/2021 2:20 AM EST) Glucose 150 65 - 199 mg/dL [facility] Comment:Diabetes: >=200 mg/d L plus symptoms Blood Urea Nitrogen 17 8 - 18 mg/dL [facility] Creatinine 1.12 0.70 - 1.20 mg/dL [facility] Sodium 140 135 - 145 mmol/L [facility] Potassium 4.8 3.5 - 5.0 mmol/L [facility] Comment: Please note: ??Patients with WBC >100,000 may have falsely elevated Potassium levels. ??For accurate Potassium quantification in these patients send serum separator tube (gold top) for subsequent determinations. ??Contact the Clinical Chemistry Laboratory if there are any questions. Chloride 105 98 - 107 mmol/L [facility] Carbon Dioxide 25 22 - 31 mmol/L [facility] Anion Gap 10 5 - 15 mmol/L [facility] Calcium 8.6 8.5 - 10.5 mg/dL [facility] Comment:result rechecked-ng Est Glomerular Filtration Rate 54(L) >=60 mL/min/1. 73 m?? [facility] Comment: This patient? [...] In Lab Rios Gonzalez MD CHEMISTRY ORDERABLES [facility] [place] [id number] * XR Lumbar Spine 2 Or 3 [...] who have questions please contact the health healthcare receptionist that requested your imaging first. ? Electronically signed by: Bianca Mcdonnell MD, [facility] ([phone]), at 07/11/2021 7:55 PM Narrative 07/11/2021 7:55 [...] patients who have questions please contactthe health healthcare receptionist that requested your imaging first. Electronically signed by: Bianca Mcdonnell MD, [facility]([phone]), at 07/11/2021 7:55 PM Rios Gonzalez MD IMG DX ORDERABLES * XR Fluoro No Rad <1Hr - OR Use (07/11/2021 2:33 PM EST) Narrative Dicom, Auditing User - 07/11/2021 2:34 PM EST This exam is auto-finalizing. No interpretation was done. Rios DU FLUORO ORDERABLE S * COVID-19 PCR (07/11/2021 10:16 AM EST) SARS-CoV-2 RNA (Rapid) Not Detected Not Detected [facility] Comment: This result [...] using the Simplexa COVID-19 Direct Assay by [employer] as authorized by the FDA issued Emergency [...] Department of Pathology and Laboratory Medicine at [facility], certified under the Clinical Laboratory Improvement Amendments [...] fact sheets at the following FDA website: https://www.fda.gov/medical-devices/ecaakjuhksv-cevbndh-1063-hblsn-22-enlwlioxn- use-a lvojwdoiqexvq-qoxhjkg-jnwhmru/awlwq-xtgnubtpkgl-cvkt SARS-CoV-2 Source BIOPROCESS DEVELOPMENT ENGINEER Swab [place] [facility] Nasopharyngeal Swab 07/11/20 10:16 AM EST 07/11/2021 11:24 AM EST Comment:Symptoms->Surveillan ce Narrative Resulting Agency Comment Spec In Lab Sanaz Coffey WIRE COINER MICROBIOLOGY - GENER AL ORDERABLES [facility] [place] [address] documented in this encounter Visit Diagnoses Diagnosis [...] Given 07/13/2021 9:26 PM EST 2 .Inhalation buPROPion SR (Wellbutrin SR) tablet 200 mg [...] Padilla RN)1406 (Given - Provider: Nohemy Ribera LPN)4886 (Given - Provider: Kalie Gomez RN) 0514 [...] Alisha Hawkins RN)2309 (Given - Provider: Robert Blankenship RN) 0526 [...] 2230, Until Discontinued, Remove lidocaine 5% patch 2230 (Patch Removed - Provider: Robert Blankenship, KAMLA) [...] 2 g, Intravenous, ONCE, 1 dose, On Jessie 07/13/21 at 1600, Administer over 120 Minutes 1715 (New Bag - Provider: Alisha Hawkins, KAMLA)1915 (Stopped - Provider: Robert Blankenship, KAMLA) montelukast [...] 08 (Given - Provider: Gloria Zaragoza LPN) 907 (Given - Provider: Lucretia Samuel RN) polyethylene glycoL (Miralax) packet 17 g 17 g, Oral, 2 TIMES DAILY, First dose on Sat07/11/21 at 2100, Until Discontinued, Routine 0900 (Not Given - Provider: Lucretia Samuel RN - Reason: Patient/family refused)2003 (Given - Provider: Georgette Zarate RN) 08 (Given - Provider: Gloria Zaragoza LPN)2124 (Given - Provider: Robert Blankenship RN) 907 (Given - Provider: Lucretia Samuel RN) pregabalin (Lyrica) capsule 150 mg 150 mg, Oral, 2 TIMES DAILY, First dose on Sat07/11/21 at 2100, Until Discontinued, Routine 08 (Given - Provider: Lucretia Samuel RN)2003 (Given [...] 2100, Until Discontinued, Recovery (Recovery-Hospital Unit), Routine 08 (Given - Provider: Lucretia Samuel RN)2005 (Given [...] Padilla RN)2235 (New Bag - Provider: Georgette O Tessa, RN) 1044 (Stopped - Provider: Alisha Hawkins, KAMLA) PRN Medication Order 07/12/2021 07/13/2021 07/14/2021 albuteroL (Proventil) nebulizer solution 2.5 mg 2.5 mg, Nebulization, EVERY 4 HOURS PRN, Starting on 07/11/21 at 1602, Until Sat07/14/21 at 1610, Wheezing, [...] constipation., Routine 0308 (Given - Provider: Robert Blankenship, KAMLA) lactulose (Chronulac) (0.67 gram/mL) oral liquid 20 [...] Samuel, KAMLA)2004 (See Alternative - Provider: Georgette Zaraet, RN) 0514 (Given - Provider: Georgette Zarate, KAMLA) oxyCODONE (Roxicodone) tablet 10 mg (CANCELED) 10 mg, Oral, EVERY 4 HOURS PRN, Starting on Sat07/13/21 at 1513, Until Sat07/13/21 at 1815, Pain, moderate to severe pain (6-10), If pain not relieved, call provider., Routine 1716 (Given - Provider: Alisha Hawkins, KAMLA) oxyCODONE [...] provider, Routine 2126 (See Alternative - Provider: Rboert Blankenship RN) 525 (See Alternative - Provider: [...] Alternative - Provider: Georgette Zarate, KAMLA) 05 (See Alternative - Provider: Georgette Zarate, KAMLA) oxyCODONE (Roxicodone) tablet 5 mg(Linked Group 2) 5 mg, Oral, EVERY 4 HOURS PRN, Starting on Jessie 07/13/21 at 1814, Until Sat07/14/21 at 1610, Pain, moderate to severe pain (6-10) Hold for sedation, If pain not relieved, call provider., Routine 2126 (Given - Provider: Robert Blankenship, RN) 0578 (Given - Provider: Robert Blankenship, RN)0908 (See Alternative - Provider: Lucretia Samuel, RN)1311 (Given - Provider: Lucretia Samuel, RN) sodium chloride 0.9 % (flush) (BD [...] Routine documented in this encounter Care Teams Department Mgr Relationship Specialty Start Date End Date Cb [place] [address] [place] [address] PCP - General Family Medicine 04/08/20 documented as of this encounter
--- OUTSIDE RECORDS SUMMARY | 2024-06-15 10:27 | XMS_ITS | Encounter Summary ---
[place] [address] Care Team Providers Care Healthcare Applications Analyst Name Role Phone Cb [place] Primary Care Provider +1- [phone] Encounter Details Date Type Department Care Team (Latest Contact Info) Description 01/20/2021 2:30 PM EDT - 01/20/2021 11:59 PM EDT Hospital En[place] [id number] COPD, moderate; PAH (pulmonary artery hypertension) Discharge [...] Start Date End Date Narcan 4 mg/actuation Delight, Non-Aerosol ADMINISTER A SINGLE SPRAY INTRANASALLY INTO [...] CLASSIC OXYGEN CONCENTRATOR MISC) 3 L by [facility].(Non-Drug; Combo Route) route nightly. diphenoxylate-atropin e (LOMOTIL) 2.5-0.025 mg Tablet Take 1 tablet by mouth 4 times daily. DO NOT restarted this unless you are having diarrhea. 120 tablet 7 06/11/2014 albuterol (PROVENTIL HFA;VENTOLIN HFA) 90 mcg/actuation HFA Aerosol Inhaler Inhale 2 puffs into the lungs every 4 hours as needed. Use with spacer Inhalational Spacing Device Spcr 2 puffs by [facility]Non-Drug; Combo Route) route daily. promethazine (PHENERGAN) 25 [...] sulfamethoxazole-trim ethoprim DS (Bactrim DS) 800-160 mg TabletIndications:DATAPOWER DEVELOPER D, moderate Take 1 tablet by mouth [...] / FVC LLN 68 % COMPAS PFT RIL70-97 Actual Pre-BD 0.68 L/s COMPAS PFT QAR34-32 Pre-BD % of Predicted 32 % COMPAS PFT ZFR88-82 Predicted 2.14 L/s COMPAS PFT QEG89-38 Pre-BD Z-Score -2.58 COMPAS PFT DLCO Hb [...] diseases documented in this encounter Care Teams Healthcare Applications Analyst Relationship Specialty Start Date End Date Cb [place] PA [address] [place] [address] PCP - General Family Medicine 04/08/20 documented as of this encounter
--- OUTSIDE RECORDS SUMMARY | 2024-06-15 10:27 | XMS_ITS | Encounter Summary ---
[place] [address] Care Team Providers Care Drying Machine Back Tender Name Role Phone Cb [place] Primary Care Provider +1- [phone] Reason for Visit * Reason Onset Date Comments Medication Refill 07/18/2021 Encounter Details Date Type Department Care Team (Late st Contact Info) Description 07/18/2021 Telephone [place] [address] Chen Valencia, dental mechanic Refill Social History Tobacco Use Types Packs/Day [...] on filedocumented in this encounter Care Teams Drying Machine Back Tender Relationship Specialty Start Date End Date Cb [place] PA [address] [place] [address] PCP - General Family Medicine 04/08/20 documented as of this encounter
--- OUTSIDE RECORDS SUMMARY | 2024-06-15 10:28 | XMS_ITS | Encounter Summary ---
Author Organization [facility] [place] [address] Care Team Providers Care Layout Man Name Role Phone Cb [place] Primary Care Provider +1- [phone] Reason for Visit * Diagnostic Test (Routine) - Closed Specialty Diagnoses / Procedures Referred By Chava alejo Referred To Contact Radiology Diagnoses Type 2 diabetes mellitus with complication, with long-term current use of insulin Procedures NM Gastric Emptying Scan Mary Alice Scanlon MD [facility] [place] [address] [place] [address] Referral ID Status Reason Start Date Expiration Date V isits Requested Visits Authorized [id number] Closed Specialty Service Requested 10/08/2018 10/08/2019 1 1 Encounter Details Date Type Department Care Team (Latest Contact Info) Description 01/01/2019 9:46 AM EDT Hospital Encounter [place] [address] Osmany Keller MD [facility] [place] [address] Discharge Disposition: Home Social History [...] 2 times daily. 05/02/2016 OXYGEN-AIR DELIVERY SYSTEMS ([employer] CLASSIC OXYGEN CONCENTRATOR MISC) 3 L by [facility].(Non-Drug; Combo Route) route [...] on filedocumented in this encounter Care Teams Layout Man Relationship Specialty Start Date End Date Cb [place] PA [address] [place] [address] PCP - General Family Medicine 11/13/18 03/29/20 documented as of this encounter
--- OUTSIDE RECORDS SUMMARY | 2024-06-15 10:28 | XMS_ITS | Encounter Summary ---
[place] [address] Care Team Providers Care Bakery Associate Name Role Phone Cb [place] Primary Care Provider +1- [phone] Reason for Visit * Reason Onset Date Comments Other 05/13/2020 faxed order for O2 face mask, demographics and chart note to [facility] Encounter Details Date Type Department Care Team (Late st Contact Info) Description 05/13/2020 Telephone [place] [address] Julia Marshall, RN Other (faxed order for O2 face mask, demographics and chart note to [facility]) Social History Tobacco Use Types Packs/Day Years [...] on filedocumented in this encounter Care Teams Bakery Associate Relationship Specialty Start Date End Date Cb [place] PA [address] [place] [address] PCP - General Family Medicine 04/08/20 documented as of this encounter
--- OUTSIDE RECORDS SUMMARY | 2024-06-15 10:28 | XMS_ITS | Encounter Summary ---
[place] [address] Care Team Providers Care Technology Education Instructor Name Role Phone Cb [place] Primary Care Provider +1- [phone] Encounter Details Date Type Department Care Team (Late st Contact Info) Description 12/16/2019 [place] [address] Stef Paul, KAMLA Irritable bowel syndrome with [...] to patient making er aware that this greeting card writer tried reaching her last week via phone and [facility], but was not able. Made patient [...] syndrome documented in this encounter Care Teams Technology Education Instructor Relationship Specialty Start Date End Date Cb [place] PA [address] [place] [address] PCP - General Family Medicine 11/13/18 03/29/20 documented as of this encounter
--- OUTSIDE RECORDS SUMMARY | 2024-06-15 10:28 | XMS_ITS | Encounter Summary ---
[place] [address] Care Team Providers Care Assembly Department Supervisor Name Role Phone Cb [place] Primary Care Provider +1- [phone] Reason for Visit * Reason Onset Date Comments Oxygen Dependence 03/14/2020 Certificate of Medical Necessity Encounter Details Date Type Department Care Team (Late st Contact Info) Description 03/14/2020 [place] [address] Suzanne Sears RN Oxygen Dependence [...] for Oxygen, signed by Dr. Holloway, to [facility]. This covered the following: E0424 [...] on filedocumented in this encounter Care Teams Assembly Department Supervisor Relationship Specialty Start Date End Date Cb [place] PA [address] [place] [address] PCP - General Family Medicine 11/13/18 03/29/20 documented as of this encounter
--- OUTSIDE RECORDS SUMMARY | 2024-06-15 10:28 | XMS_ITS | Encounter Summary ---
[place] [address] Care Team Providers Care Library Clerk Talking Books Name Role Phone Cb Florence Primary Care Provider +1- [phone] Reason for Visit * Reason Onset Date Comments Prior Authorization 11/28/2018 Encounter Details Date Type Department Care Team (Late st Contact Info) Description 11/28/2018 Telephone [place] [phone] Amanda Sanchez CCMA Prior Authorization Social History [...] Prior Authorization 4L Gastroenterology / Hepatology at [facility], [address] Subscriber Insurance: [facility] Part D Phone: Fax: Physician: Osmany Keller Return Pharmacy: [facility] Fax: Medication Requested: Viberzi Strength:100mg Frequency: Twice Daily Disp.: 180 Refills: 1 Currently taking: Diagnosis for this medication: IBS-D ICD-10 code: K58.0 Prior medications trialed in this patient: Medication: Outcome/Adverse Reactions: Decision: Approved Tracking number/Case number/Reference number: [id number] Effective date: 11/28/2018 to 05/30/2019 Start: End: documented in this encounter Plan of Treatment Not on file documented as of this encounter Visit Diagnoses Not on filedocumented in this encounter Care Teams Library Clerk Talking Books Relationship Specialty Start Date End Date Cb Florence PA [address] [place] [address] PCP - General Family Medicine 11/13/18 03/29/20 documented as of this encounter
--- OUTSIDE RECORDS SUMMARY | 2024-06-15 10:28 | XMS_ITS | Encounter Summary ---
[place] [address] Care Team Providers Care Head Refrigerating Engineer Name Role Phone Cb Florence Primary Care Provider +1- [phone] Reason for Visit * Reason Onset Date Comments Oxygen Dependence 02/02/2020 Written Confir mation of Oxygen Order Encounter Details Date Type Department Care Team (Late st Contact Info) Description 02/02/2020 Telephone [place] [address] Suzanne Sears RN Oxygen Dependence [...] Oxygen form, signed by Dr. Holloway, to [employer]. This covered the following: E1392 - Portable Oxygen E1390 - Concentrator [employer]life 3 LPM Fax submission confirmation time stamped for 02/02/2020 @ 2693. 2 pages with cover sheet. Copy of Written Confirmation of Order form sent to scanning for inclusion to patient records. documented in this encounter Plan of Treatment Not on file documented as of this encounter Visit Diagnoses Not on filedocumented in this encounter Care Teams Head Refrigerating Engineer Relationship Specialty Start Date End Date Cb Florence PA [address] [place] [address] PCP - General Family Medicine 11/13/18 03/29/20 documented as of this encounter
--- OUTSIDE RECORDS SUMMARY | 2024-06-15 10:28 | XMS_ITS | Encounter Summary ---
Author Organization [facility] [place] [address] Care Team Providers Care Personnel Monitor Name Role Phone Cb Florence Primary Care Provider +1- [phone] Reason for Visit * Consultation (Routine) - Specialty Diagnoses / Procedures Referred By Chava alejo Referred To Contact Neurology Diagnoses Unspecified abnormal involuntary movements Cb Florence PA [address] [place] [address] [facility] [address] [place] [phone] Referral ID Status Reason Start Date Expiration Date V isits Requested Visits Authorized [id number] Consult, Test & Treat PCP Updated and/or Approved 03/10/2020 03/10/2021 6 6 Encounter Details Date Type Department Care Team (Late st Contact Info) Description 04/14/2020 10:00 AM EDT [place] [address] Erika Reyez, [facility] [place] [address] Essential tremor; Paresthesias Social History [...] 10:00 AM EDT Movement Disorders Consultation Note [facility] Reason for Consultation It is my pleasure [...] STRUCTUAL performed by Rios Acuna MD at [facility] MAIN OR ??? PRO ANTERIOR INSTRUMENTATION 2-3 VERTEBRAL SEGMENTS 09/08/2013 @ANT. SPINAL INSTRUMENTATION, 2-3 VERTEBRA, SEGMENTED performed by Rios Acuna MD at [facility] [place] ??? PRO ARTHRD ANT INTERDY CERVCL BELW C2 EA ADDL NTRSPC 09/08/2013 @ARTHRODESIS ANT INTERBDY CERVCL BELOW C2 EA ADDL INTRSPACE performed by Rios Acuna MD at [facility] MAIN OR ??? PRO ARTHRODESIS, ANT INTERBODY,DECOMPRESSION; CERVICAL BELOW C2 09/08/2013 ARTHRODESIS, ANT INTERBODY,DECOMPRESSION; CERVICAL BELOW C2 performed by Rios Acuna MD at [facility] MAIN OR ??? PRO DECOMPRESS SPINAL CORD, 1 SEG Right 08/31/2014 TRANSPEDICULAR LUMBAR DECOMPRESSION SPINAL CORD,EQUINA & NERVE ROOTS, ONE LVL. performed by Rios Acuna MD at [facility] MAIN OR ??? PRO LAP, CHOLECYSTECTOMY/GRAPH 11/04/2012 LAPAROSCOPIC CHOLECYSTECTOMY WITH CHOLANGIOGRAM performed by Abel Carlton MD at [facility] MAIN OR ??? PRO UPPER GI ENDOSCOPY, BIOPSY N/A 10/26/2015 UPPER GASTROINTESTINAL ENDOSCOPY,WITH BIOPSY SINGLE OR MULTIPLE performed by Apolinar Sepulveda MDat [facility] ENDOSCOPY ??? PRO UPPER GI ENDOSCOPY, DIAGNOSTIC N/A 10/26/2015 EGD, UPPER GI ENDOSCOPY performed by Apolinar Sepulveda MD at [facility] ENDOSCOPY ??? PRO UPPER GI ENDOSCOPY, DIAGNOSTIC N/A 10/02/2016 EGD, UPPER GI ENDOSCOPY performed by Justin Starkey MD at [facility] ENDOSCOPY ??? PRO UPPER GI ENDOSCOPY, W/DIR SUBMUC INJ 11/05/2017 EGD, W DIRECTED SUBMUCOSAL INJECTION(S) performed by Osmany Keller MD at [facility] ENDOSCOPY Current Medications See updated medication list below. Medications 04/14/20 0912 Medication Sig Taking? eluxadoline (Viberzi) 100 mg [...] [facility].(Non-Drug; Combo Route) route nightly. Yes diphenoxylate-atropine (LOMOTIL) [...] 1 tablet by mouth 2 times daily. [facility] Face mask for nocturnal O2 Patient not taking: Reported on 08/21/2017 chlorpheniramine (CHLOR-TRIMETON) 4 mg Tablet Take 4 mg by mouth every 6 hours as needed for Allergies. Inhalational Spacing Device Spcr 2 puffs by [facility].(Non-Drug; Combo Route) route daily. fluticasone (FLONASE) 50 [...] on phone: None Gets together: None Attends bahai service: None Active member of club or [...] touch, pin, vibration, and temperture stimuli. Cerebellar: [id number] test and heel to awan of upper [...] 71 11/25/2018 Lab Results Component Value Date [id number] 11/15/2018 Lab Results Component Value Date [...] Erika Reyez D.O. Movement Disorders [place] [address] TEL: [phone] FAX: [phone] [email or web address] documented in this encounter Plan of Treatment Not on file documented as of this encounter Visit Diagnoses Diagnosis Essential tremor Essential and other specified forms of tremor Paresthesias Disturbance of skin sensation documented in this encounter Care Teams Personnel Monitor Relationship Specialty Start Date End Date Cb Florence PA [address] [place] [address] PCP - General Family Medicine 04/08/20 documented as of this encounter
--- OUTSIDE RECORDS SUMMARY | 2024-06-15 10:28 | XMS_ITS | Encounter Summary ---
Author Organization [facility] [place] [address] Care Team Providers Care Hand Drawer In Helper Name Role Phone Cb Florence Primary Care Provider +1- [phone] Reason for Visit * Reason Comments Medication Refill Encounter Details Date Type Department Care Team (Late st Contact Info) Description 07/26/2019 Refill [place] [address] Osmany Keller MD [facility] [place] [address] Irritable bowel syndrome with diarrhea Social History [...] syndrome documented in this encounter Care Teams Hand Drawer In Helper Relationship Specialty Start Date End Date Cb Florence PA [address] [place] [address] PCP - General Family Medicine 11/13/18 03/29/20 documented as of this encounter
--- OUTSIDE RECORDS SUMMARY | 2024-06-15 10:28 | XMS_ITS | Encounter Summary ---
Author Organization [facility] [place] [address] Care Team Providers Care Industrial Maintenance Electrician Name Role Phone Cb Florence Primary Care Provider +1- [phone] Encounter Details Date Type Department Care Team (Latest Contact Info) Description 06/01/2020 11:00 AM EDT TH Visit (TeleHealth) [place] [address] Erika Reyez, [facility] [place] [address] Essential tremor; Hand paresthesia, unspecified laterality Social [...] a new prescription to your pharmacy in [place]. Let me know if you have any problems with the increase in dosage. Erika Reyez DO documented in this encounter Progress Notes * Erika Reyez DO - 06/01/2020 11:00 AM EDT Movement Disorders Telehealth Follow-up Note [facility] Poppy Del Cid Raheelthor presents for [...] to Visit Medication Sig Dispense Refill ??? [employer] Blue Test Strip Strip USE 1 STRIP [...] tablet by mouth 2 times daily. 60 [id number] ??? baclofen (LIORESAL) 10 mg Tablet Take [...] CLASSIC OXYGEN CONCENTRATOR MISC) 3 L by [facility]Non-Drug; Combo Route) route nightly. ??? chlorpheniramine (CHLOR-TRIMETON) [...] Inhalational Spacing Device Spcr 2 puffs by [facility].(Non-Drug; Combo Route) route daily. ??? fluticasone (FLONASE) [...] given her a new prescription to the [facility] pharmacy in [place] for his 600 mg tablets. She can follow-up with me in 1 year. All questions were answered. The patient was told to call with any additional questions or concernsthat should arise in the interim. Erika Reyez D.O. Movement Disorders [place] [address] TEL: [phone] FAX: [phone] [email or web address] documented in this encounter Plan of Treatment Not on file documented as of this encounter Visit Diagnoses Diagnosis Essential tremor Essential and other specified forms of tremor Hand paresthesia, unspecified laterality documented in this encounter Care Teams Industrial Maintenance Electrician Relationship Specialty Start Date End Date Cb Florence PA [address] [place] [address] PCP - General Family Medicine 04/08/20 documented as of this encounter
--- OUTSIDE RECORDS SUMMARY | 2024-06-15 10:28 | XMS_ITS | Encounter Summary ---
[place] [address] Care Team Providers Care Deer Farm Worker Name Role Phone Cb Florence Primary Care Provider +1- [phone] Reason for Referral * Diagnostic Test (Routine) - Closed Specialty Diagnoses / Procedures Referred By Chava alejo Referred To Contact Radiology Diagnoses Type 2 diabetes mellitus with complication, with long-term current use of insulin Procedures NM Gastric Emptying Scan Mary Alice Scanlon MD [facility] [place] [address] [place] [address] Referral ID Status Reason Start Date Expiration Date V isits Requested Visits Authorized [id number] Closed Specialty Service Requested 10/08/2018 10/08/2019 1 1 Reason for Visit * Diagnostic Test (Routine) - Closed Specialty Diagnoses / Procedures Referred By Chava alejo Referred To Contact Radiology Diagnoses Type 2 diabetes mellitus with complication, with long-term current use of insulin Procedures NM Gastric Emptying Scan Mary Alice Scanlon MD [facility] [address] [place] [address] [place] [address] Referral ID Status Reason Start Date Expiration Date V isits Requested Visits Authorized [id number] Closed Specialty Service Requested 10/08/2018 10/08/2019 1 1 Encounter Details Date Type Department Care Team (Latest Contact Info) Description 01/01/2019 9:30 AM EDT - 01/01/2019 9:43 AM EDT Hospital Encounter [place] [address] Osmany Keller MD [facility] [place] [address] Type 2 diabetes mellitus with complication, with [...] mCi documented in this encounter Care Teams Deer Farm Worker Relationship Specialty Start Date End Date Cb Florence PA [address] [place] [address] PCP - General Family Medicine 11/13/18 03/29/20 documented as of this encounter
--- OUTSIDE RECORDS SUMMARY | 2024-06-15 10:28 | XMS_ITS | Encounter Summary ---
[place] [address] Care Team Providers Care Cloth Finishing Range Operator Name Role Phone Cb Florence Primary Care Provider +1- [phone] Encounter Details Date Type Department Care Team (Late st Contact Info) Description 04/22/2020 Telephone [place] [address] Kena Pagan LNA Social History Tobacco Use [...] on filedocumented in this encounter Care Teams Cloth Finishing Range Operator Relationship Specialty Start Date End Date Cb Florence PA [address] [place] [address] PCP - General Family Medicine 04/08/20 documented as of this encounter
--- OUTSIDE RECORDS SUMMARY | 2024-06-15 10:28 | XMS_ITS | Encounter Summary ---
Author Organization [facility] [address] Care Team Providers Care Petrography Teacher Name Role Phone Cb Florence Primary Care Provider +1- [phone] Encounter Details Date Type Department Care Team (Latest Contact Info) Description 05/27/2020 8:30 AM EDT Procedure [place] [address] Marshall Montgomery MD [facility] [place] [address] Hand paresthesia, unspecified laterality Social History Tobacco [...] STRUCTUAL performed by Rios Acuna MD at [facility] OR ??? PRO ANTERIOR INSTRUMENTATION 2-3 VERTEBRAL SEGMENTS 09/08/2013 @ANT. SPINAL INSTRUMENTATION, 2-3 VERTEBRA, SEGMENTED performed by Rios Acuna MD at [facility] [place] ??? PRO ARTHRD ANT INTERDY CERVCL BELW C2 EA ADDL NTRSPC 09/08/2013 @ARTHRODESIS ANT INTERBDY CERVCL BELOW C2 EA ADDL INTRSPACE performed by Rios Acuna MD at [facility] OR ??? PRO ARTHRODESIS, ANT INTERBODY,DECOMPRESSION; CERVICAL BELOW C2 09/08/2013 ARTHRODESIS, ANT INTERBODY,DECOMPRESSION; CERVICAL BELOW C2 performed by Rios Acuna MD at [facility] OR ??? PRO DECOMPRESS SPINAL CORD, 1 SEG Right 08/31/2014 TRANSPEDICULAR LUMBAR DECOMPRESSION SPINAL CORD,EQUINA & NERVE ROOTS, ONE LVL. performed by Rios Acuna MD at [facility] OR ??? PRO LAP, CHOLECYSTECTOMY/GRAPH 11/04/2012 LAPAROSCOPIC CHOLECYSTECTOMY WITH CHOLANGIOGRAM performed by Abel Carlton MD at [facility] OR ??? PRO UPPER GI ENDOSCOPY, BIOPSY N/A 10/26/2015 UPPER GASTROINTESTINAL ENDOSCOPY,WITH BIOPSY SINGLE OR MULTIPLE performed by Apolinar Sepulveda MDat [facility] ENDOSCOPY ??? PRO UPPER GI ENDOSCOPY, DIAGNOSTIC N/A 10/26/2015 EGD, UPPER GI ENDOSCOPY performed by Apolinar Sepulveda MD at [facility] ENDOSCOPY ??? PRO UPPER GI ENDOSCOPY, DIAGNOSTIC N/A 10/02/2016 EGD, UPPER GI ENDOSCOPY performed by Justin Starkey MD at [facility] ENDOSCOPY ??? PRO UPPER GI ENDOSCOPY, W/DIR SUBMUC INJ 11/05/2017 EGD, W DIRECTED SUBMUCOSAL INJECTION(S) performed by Osmany Keller MD at [facility] ENDOSCOPY Medications: Current Outpatient Medications on File Prior to Visit Medication Sig Dispense Refill ??? [email or web address] Ultra Blue Test Strip Strip USE 1 [...] tablet by mouth 2 times daily. 60 [id number] ??? baclofen (LIORESAL) 10 mg Tablet Take [...] CLASSIC OXYGEN CONCENTRATOR MISC) 3 L by [facility].(Non-Drug; Combo Route) route nightly. ??? diphenoxylate-atropine (LOMOTIL) [...] Inhalational Spacing Device Spcr 2 puffs by [facility].(Non-Drug; Combo Route) route daily. ??? promethazine (PHENERGAN) [...] laterality documented in this encounter Care Teams Petrography Teacher Relationship Specialty Start Date End Date Cb Florence PA [address] [place] [address] PCP - General Family Medicine 04/08/20 documented as of this encounter
--- OUTSIDE RECORDS SUMMARY | 2024-06-15 10:28 | XMS_ITS | Encounter Summary ---
[place] [address] Care Team Providers Care Telephone Assembler Name Role Phone Cb Florence Primary Care Provider +1- [phone] Reason for Visit * Reason Onset Date Comments Oxygen Dependence 03/23/2019 Written Confir mation of an order for oxygen Encounter Details Date Type Department Care Team (Late st Contact Info) Description 03/23/2019 Telephone [place] [address] Suzanne Sears RN Oxygen Dependence [...] submission confirmation time stamped for 03/23/2019, @ 0610. Copy sent to scanning for inclusion to patient records. documented in this encounter Plan of Treatment Not on file documented as of this encounter Visit Diagnoses Not on filedocumented in this encounter Care Teams Telephone Assembler Relationship Specialty Start Date End Date Cb Florence PA [address] [place] [address] PCP - General Family Medicine 11/13/18 03/29/20 documented as of this encounter
--- OUTSIDE RECORDS SUMMARY | 2024-06-15 10:28 | XMS_ITS | Encounter Summary ---
[place] [address] Care Team Providers Care Athletic Monitor Name Role Phone Cb Florence Primary Care Provider +1- [phone] Reason for Visit * Reason Onset Date Comments Referral 03/18/2020 Encounter Details Date Type Department Care Team (Late st Contact Info) Description 03/18/2020 [place] [address] Lucrecia Dougherty Referral Social History Tobacco Use [...] her before the end of the week. [phone] * Telephone Encounter - Lucrecia Dougherty - 03/18/2020 2:25 PM EDT Caller: [facility] If not PT/Relation to PT: [facility] Best number to reach caller: [phone] Reason for the Call: Schedule EMG from [...] on filedocumented in this encounter Care Teams Athletic Monitor Relationship Specialty Start Date End Date Cb Florence PA [address] [place] [address] PCP - General Family Medicine 04/08/20 documented as of this encounter
--- OUTSIDE RECORDS SUMMARY | 2024-06-15 10:28 | XMS_ITS | Encounter Summary ---
[place] [address] Care Team Providers Care President & Ceo Name Role Phone Cb Florence Primary Care Provider +1- [phone] Encounter Details Date Type Department Care Team (Late st Contact Info) Description 12/16/2019 Tele[place] [address] Lori Candelario Social History Tobacco Use Types [...] on filedocumented in this encounter Care Teams President & Ceo Relationship Specialty Start Date End Date Cb Florence PA [address] [place], [place] [address] PCP - General Family Medicine 11/13/18 03/29/20 documented as of this encounter
--- OUTSIDE RECORDS SUMMARY | 2024-06-15 10:28 | XMS_ITS | Encounter Summary ---
Author Organization [facility] [address] Care Team Providers Care Lab Specialist Name Role Phone Cb Florence Primary Care Provider +1- [phone] Encounter Details Date Type Department Care Team (Late st Contact Info) Description 05/27/2020 External Results [place] [address] Marshall Montgomery MD [facility] [address] Social History Tobacco Use Types Packs/Day Years [...] on filedocumented in this encounter Care Teams Lab Specialist Relationship Specialty Start Date End Date Cb Florence PA [address] [place] [address] PCP - General Family Medicine 04/08/20 documented as of this encounter
--- OUTSIDE RECORDS SUMMARY | 2024-06-15 10:28 | XMS_ITS | Encounter Summary ---
Author Organization [facility] [place] [address] Care Team Providers Care Dry Goods Clerk Name Role Phone Cb Florence Primary Care Provider +1- [phone] Reason for Visit * Reason Comments Medication Refill Encounter Details Date Type Department Care Team (Late st Contact Info) Description 02/14/2020 Refill Internal Medicine at [address] [address] Vito Hartman MD [facility] [place] [address] Social History Tobacco Use Types Packs/Day Years [...] filedocumented in this encounter Care Teams Dry Goods Clerk Relationship Specialty Start Date End Date Cb Florence PA [address] [place] [address] PCP - General Family Medicine 04/08/20 documented as of this encounter
--- OUTSIDE RECORDS SUMMARY | 2024-06-15 10:28 | XMS_ITS | Encounter Summary ---
[place] [address] Care Team Providers Care Aircraft Steel Fabricator Name Role Phone Cb Florence Primary Care Provider +1- [phone] Reason for Visit * Reason Onset Date Comments Reminder Appointment 12/23/2019 Encounter Details Date Type Department Care Team (Late st Contact Info) Description 12/23/2019 Telephone [place] [address] Gay Ceron CCMA Reminder Appointment Social History [...] on filedocumented in this encounter Care Teams Aircraft Steel Fabricator Relationship Specialty Start Date End Date Cb Florence PA [address] [place] [address] PCP - General Family Medicine 11/13/18 03/29/20 documented as of this encounter
--- OUTSIDE RECORDS SUMMARY | 2024-06-15 10:28 | XMS_ITS | Encounter Summary ---
[place] [address] Care Team Providers Care Cardiac Rehab Nurse Name Role Phone Cb Florence Primary Care Provider +1- [phone] Reason for Visit * Reason Onset Date Comments Other 12/12/2018 Nebulizer Order Encounter Details Date Type Department Care Team (Late st Contact Info) Description 12/12/2018 [place] [address] Suzanne Sears RN Other (Nebulizer Order) Social History Tobacco [...] submission confirmation time stamped for 12/12/2018 @ 8127. 2 pages. documented in this encounter Plan of Treatment Not on file documented as of this encounter Visit Diagnoses Not on filedocumented in this encounter Care Teams Cardiac Rehab Nurse Relationship Specialty Start Date End Date Cb Florence PA [address] [place] [address] PCP - General Family Medicine 11/13/18 03/29/20 documented as of this encounter
--- OUTSIDE RECORDS SUMMARY | 2024-06-15 10:28 | XMS_ITS | Encounter Summary ---
[place] [address] Care Team Providers Care Wirer Passenger Car Name Role Phone Cb Florence Primary Care Provider +1- [phone] Encounter Details Date Type Department Care Team (Late st Contact Info) Description 12/09/2019 Telephone [place] [address] Stef Paul, RN Social History Tobacco Use [...] completion of your call. Will send a [facility] message to patient asking her to [...] on filedocumented in this encounter Care Teams Wirer Passenger Car Relationship Specialty Start Date End Date Cb Florence PA [address] [place] [address] PCP - General Family Medicine 11/13/18 03/29/20 documented as of this encounter
--- OUTSIDE RECORDS SUMMARY | 2024-06-15 10:28 | XMS_ITS | Encounter Summary ---
Author Organization [facility] [place] [address] Care Team Providers Care Irrigator Valve Pipe Name Role Phone Cb Florence Primary Care Provider +1- [phone] Reason for Visit * Diagnostic Test (Routine) - Closed Specialty Diagnoses / Procedures Referred By Chava alejo Referred To Contact Radiology Diagnoses Type 2 diabetes mellitus with complication, with long-term current use of insulin Procedures NM Gastric Emptying Scan Mary Alice Scanlon MD [facility] [place] [address] [place] [address] Referral ID Status Reason Start Date Expiration Date V isits Requested Visits Authorized [id number] Closed Specialty Service Requested 10/08/2018 10/08/2019 1 1 Encounter Details Date Type Department Care Team (Latest Contact Info) Description 01/01/2019 9:44 AM EDT - 01/01/2019 9:45 AM EDT Hospital Encounter [place] [address] Osmany Keller MD [facility] [place] [address] Discharge Disposition: Home Social History [...] on filedocumented in this encounter Care Teams Irrigator Valve Pipe Relationship Specialty Start Date End Date Cb Florence [address] [place] [address] PCP - General Family Medicine 11/13/18 03/29/20 documented as of this encounter
--- OUTSIDE RECORDS SUMMARY | 2024-06-15 10:28 | XMS_ITS | Encounter Summary ---
Author Organization formerly [facility] [place] [address] Care Team Providers Care Chief Financial Officer Name Role Phone Cb [place] Primary Care Provider +1- [phone] Encounter Details Date Type Department Care Team (Latest Contact Info) Description 04/08/2020 12:53 PM EDT - 04/08/2020 11:59 PM EDT Hospital [place] [id number] COPD, moderate Discharge Disposition: Home Social History [...] [facility] [place].(Non-Drug; Combo Route) route nightly. diphenoxylate-atropin e (LOMOTIL) [...] [facility] [place].(Non-Drug; Combo Route) route daily. promethazine (PHENERGAN) 25 [...] sulfamethoxazole-trim ethoprim DS (Bactrim DS) 800-160 mg TabletIndications:CONCRETE BUCKET UNLOADER D, moderate Take 1 tablet by mouth [...] MD - 04/08/2020 5:53 PM EDT Lester Pricthard MD ? 04/08/2020 ??5:56 PM Pulmonary Function [...] classified documented in this encounter Care Teams Chief Financial Officer Relationship Specialty Start Date End Date Cb Florence [address] [place] [address] PCP - General Family Medicine 04/08/20 documented as of this encounter
--- OUTSIDE RECORDS SUMMARY | 2024-06-15 10:28 | XMS_ITS | Encounter Summary ---
Author Organization [facility] [place] [address] Care Team Providers Care Cook'S Assistant Name Role Phone Cb [place] Primary Care Provider +1- [phone] Reason for Visit * Diagnostic Test (Routine) - Closed Specialty Diagnoses / Procedures Referred By Chava alejo Referred To Contact Radiology Diagnoses Type 2 diabetes mellitus with complication, with long-term current use of insulin Procedures NM Gastric Emptying Scan Mary Alice Scanlon MD [facility] [place] [address] [place] [address] Referral ID Status Reason Start Date Expiration Date V isits Requested Visits Authorized [id number] Closed Specialty Service Requested 10/08/2018 10/08/2019 1 1 Encounter Details Date Type Department Care Team (Latest Contact Info) Description 01/01/2019 9:46 AM EDT Hospital [place] [address] Osmany Keller MD [facility] [place] [address] Discharge Disposition: Home Social History [...] 2 times daily. 05/02/2016 OXYGEN-AIR DELIVERY SYSTEMS ([employer] CLASSIC OXYGEN CONCENTRATOR MISC) 3 L by [facility]Non-Drug; Combo Route) route nightly. diphenoxylate-atropin e (LOMOTIL) [...] on filedocumented in this encounter Care Teams Cook'S Assistant Relationship Specialty Start Date End Date Cb Florence PA [address] [place] [address] PCP - General Family Medicine 11/13/18 03/29/20 documented as of this encounter
--- OUTSIDE RECORDS SUMMARY | 2024-06-15 10:28 | XMS_ITS | Encounter Summary ---
Author Organization [facility] [place] [address] Care Team Providers Care Senior Java Ui Developer Name Role Phone Cb [place] Primary Care Provider +1- [phone] Encounter Details Date Type Department Care Team (Latest Contact Info) Description 10/09/2019 8:00 AM EST - 10/09/2019 11:59 PM [facility] Hospital [place] [address] Chronic obstructive pulmonary disease, unspecified COPD type [...] Inhalational Spacing Device Spcr 2 puffs [facility]; Combo Route) route daily. promethazine (PHENERGAN) [...] sulfamethoxazole-trim ethoprim DS (Bactrim DS) 800-160 mg TabletIndications:ASSAULT AMPHIBIOUS VEHICLE OFFICER D, moderate Take 1 tablet [...] documented in this encounter Care Teams Senior Java Ui Developer Relationship Specialty Start Date End Date Cb Florence PA [address] [place] [address] PCP - General Family Medicine 11/13/18 03/29/20 documented as of this encounter
--- OUTSIDE RECORDS SUMMARY | 2024-06-15 10:28 | XMS_ITS | Encounter Summary ---
[place] [address] Care Team Providers Care Railroad Inspector Name Role Phone Cb [place] Primary Care Provider +1- [phone] Encounter Details Date Type Department Care Team (Late st Contact Info) Description 03/16/2020 Telephone [place] [address] Gardenia Bueno CMA GASTROENTEROLOGY DEPT Social History [...] 3:13 PM EDT Gastroenterology / Hepatology at [facility]?[address]?[place] [address]? Subscriber Insurance: [employer] ?Fax: ? Physician:?Osmany Keller ? Return ?? Pharmacy:?[facility] ?? Phone:??[phone] Fax:??[phone] ?? Medication Requested: ??Viberzi ?? Strength:??100 mg?Frequency: ??BID ?? Disp:60? Refills: 5 ?? Currently taking: yes ?? Diagnosis for this medication: IBS-D ?? ICD-10 code: K58.0 ? Prior medications trialed in this patient: ?xifaxan ?? lomotil ?? imodium ? Medication: Outcome/Adverse Reactions:??treatment failure ?? Decision:??approved ?? Tracking number/Case number/Reference number: ?[id number] ? Effective date: ??End: 09/16/2020 documented in this encounter Plan of Treatment Not on file documented as of this encounter Visit Diagnoses Not on filedocumented in this encounter Care Teams Railroad Inspector Relationship Specialty Start Date End Date Cb Florence PA [address] [place] [address] PCP - General Family Medicine 11/13/18 03/29/20 documented as of this encounter
--- OUTSIDE RECORDS SUMMARY | 2024-06-15 10:28 | XMS_ITS | Encounter Summary ---
[place] [address] Care Team Providers Care Golf Ball Cover Treater Name Role Phone Cb [place] Primary Care Provider +1- [phone] Reason for Visit * Reason Onset Date Comments Oxygen Dependence 01/28/2020 Written Confir mation of an Order Encounter Details Date Type Department Care Team (Late st Contact Info) Description 01/28/2020 [place] [address] Suzanne Sears RN Oxygen Dependence [...] Order form, signed by Dr. Holloway, to [employer]. This covered the following items: E1392 Portable Oxygen RNT PORTO2 (4) E1390 Concentrator Oxlife 3 LPMNT Concentr 20 (4) Fax submission confirmation time stamped for 01/28/2020 @ 4159. 2 pages with cover sheet. Copy of Written Confirmation of Order for Oxygen form sent to scanning for inclusion to patient records. documented in this encounter Plan of Treatment Not on file documented as of this encounter Visit Diagnoses Not on filedocumented in this encounter Care Teams Golf Ball Cover Treater Relationship Specialty Start Date End Date Cb Florence PA [address] [place] [address] PCP - General Family Medicine 11/13/18 03/29/20 documented as of this encounter
--- OUTSIDE RECORDS SUMMARY | 2024-06-15 10:28 | XMS_ITS | Encounter Summary ---
[place] [address] Care Team Providers Care Lithographic Platemaker Name Role Phone Cb [place] Primary Care Provider +1- [phone] Encounter Details Date Type Department Care Team (Late st Contact Info) Description 04/11/2020 Telephone [place] [address] Lamont Cardenas Social History Tobacco Use Types [...] on filedocumented in this encounter Care Teams Lithographic Platemaker Relationship Specialty Start Date End Date Cb Florence PA [address] [place] [address] PCP - General Family Medicine 04/08/20 documented as of this encounter
--- OUTSIDE RECORDS SUMMARY | 2024-06-15 10:28 | XMS_ITS | Encounter Summary ---
Author Organization [facility] [place] [address] Care Team Providers Care Fox Farmer Name Role Phone Cb [place] Primary Care Provider +1- [phone] Reason for Visit * Reason Onset Date Comments TeleHealth 05/31/2020 apt 06/01 Encounter Details Date Type Department Care Team (Late st Contact Info) Description 05/31/2020 [place] [address] [address] [facility] [place] [address] TeleHealth (apt 06/01) Social History Tobacco Use [...] on filedocumented in this encounter Care Teams Fox Farmer Relationship Specialty Start Date End Date Cb Florence PA [address] [place] [address] PCP - General Family Medicine 04/08/20 documented as of this encounter
--- OUTSIDE RECORDS SUMMARY | 2024-06-15 10:28 | XMS_ITS | Encounter Summary ---
Author Organization [facility] [place] [address] Care Team Providers Care Can Closing Machine Operator Name Role Phone Cb [place] Primary Care Provider +1- [phone] Reason for Visit * Reason Comments Medication Refill Encounter Details Date Type Department Care Team (Late st Contact Info) Description 12/25/2019 Ref[place] [address] Osmany Keller MD [facility] [place] [place] [address] Irritable bowel syndrome with diarrhea Social History [...] syndrome documented in this encounter Care Teams Can Closing Machine Operator Relationship Specialty Start Date End Date Cb Florence PA [address] [place] [address] PCP - General Family Medicine 11/13/18 03/29/20 documented as of this encounter
--- OUTSIDE RECORDS SUMMARY | 2024-06-15 10:28 | XMS_ITS | Encounter Summary ---
Author Organization [facility] [place] [address] Care Team Providers Care Industrial Furnace Fabricator Name Role Phone Cb [place] Primary Care Provider +1- [phone] Encounter Details Date Type Department Care Team (Late st Contact Info) Description 10/08/2019 Orders [place] [address] Osmany Holloway MD [facility] [place] [address] Chronic obstructive pulmonary disease, unspecified COPD type [...] Diffusion impairment present. LESTER PRITCHARD MD Osmany Overotn MD PFT ORDERABLES documented in this encounter Visit Diagnoses Diagnosis Chronic obstructive pulmonary disease, unspecified COPD type- Primary Chronic obstructive pulmonary disease, unspecified COPD type documented in this encounter Care Teams Industrial Furnace Fabricator Relationship Specialty Start Date End Date Cb Florence PA [address] [place] [address] PCP - General Family Medicine 11/13/18 03/29/20 documented as of this encounter
--- OUTSIDE RECORDS SUMMARY | 2024-06-15 10:28 | XMS_ITS | Encounter Summary ---
[place] [address] Care Team Providers Care Rod Tape Operator Name Role Phone Cb [place] Primary Care Provider +1- [phone] Reason for Referral * Diagnostic Test (Routine) - Closed Specialty Diagnoses / Procedures Referred By Chava alejo Referred To Contact Cardiology Diagnoses PAH (pulmonary artery hypertension) Procedures Echocardiogram Transthoracic([facility]) Osmany Holloway MD [facility] [place] [address] [facility] [place] [address] Referral ID Status Reason Start Date Expiration Date V isits Requested Visits Authorized [id number] Closed Specialty Service Requested 04/18/2020 04/18/2021 1 1 Reason for Visit * Reason Comments Follow-up Encounter Details Date Type Department Care Team (Late st Contact Info) Description 04/08/2020 2:00 PM EDT Office [place] [address] Osmany Holloway MD [facility] [place] [address] PAH (pulmonary artery hypertension); COPD, [...] CRITICAL CARE??MEDICINE Pulmonary and Critical Care Medicine [facility] [place] [address] Outpatient follow-up visit Follow-up 59 y.o. female [...] tablet by mouth 2 times daily. 60 [id number] ??? baclofen (LIORESAL) 10 mg Tablet Take [...] CLASSIC OXYGEN CONCENTRATOR MISC) 3 L by [facility]Non-Drug; Combo Route) route nightly. ??? chlorpheniramine (CHLOR-TRIMETON) [...] Device Spcr 2 puffs by [facility]Non-Drug; Combo Route) route daily. ??? fluticasone (FLONASE) [...] 90 tablet 3 ??? Miscellaneous Medical Supply [facility] Face mask for nocturnal O2 (Patient not [...] will need a prescription for this from [employer] so that he can be replaced at reasonable intervals. Greater than 10 minutes of this 15-minute visit was spent in direct evws-uv-vvbf counseling with the patient regarding the management [...] Cid ? (Age): 1960(59y) Med Rec#: ? [id number] ?Sex: ?F ? [place] [facility] [place]t / Wt: ??154.94(cm)/79.0 Pt. Loc: ?Echo Lab ?BSA: ?1.78 Study Date: ?? 07/29/2020 ?Pt. Type: Same-Day Patient Tape: ? Referring: Osmany Holloway Reading: Parker Narvaez ([id number]) Experimental Rocketsled Mechanic: Peg Jose Diagnosis: *Other secondary pulmonary hypertension [...] Vmax ?0.67 ? m/sec ? MV deceleration [id number] ?msec ? MV A-wave Vmax ?0.75 ? [...] ? Mid-Inferior ?Normal ? Mid-Inferoseptal ?Normal ? [place]-Septal ? Normal ? [place]-Anterior ? Normal ? [place]-Lateral ?Normal ? [place]-Inferior ? Normal ? [place]-Tip ?Normal ? This report has been electronically signed by: Parker Narvaez MD ? 07/29/2020 14:51:18 Images reviewed and interpretation verified [facility] Cardiac Ultrasound Laboratory Procedure Note Parker Narvaez MD - 07/29/2020 Procedure: Transthoracic Echocardiogram Patient: ODETTE eDl Cid DOB(Age): 1960(59y) Med Rec#: [id number] Sex: F [place] [facility] [place] Ht / Wt: 154.94(cm)/79.0 Pt. Loc: Echo Lab BSA: 1.78 Study Date: 07/29/2020 Pt. Type: Same-Day Patient Tape: Referring: Osmany Holloway Reading: Parker Narvaez ([id number]) Experimental Rocketsled Mechanic: Peg Jose Diagnosis: *Other secondary pulmonary hypertension [...] MV E-wave Vmax 0.67 m/sec MV deceleration [id number] msec MV A-wave Vmax 0.75 m/sec MV [...] Normal Mid-Posterolateral Normal Mid-Inferior Normal Mid-Inferoseptal Normal [place]-Septal Normal [place]-Anterior Normal [place]-Lateral Normal [place]-Inferior Normal [place]-Tip Normal This report has been electronically signed by: Parker Narvaez MD 07/29/2020 14:51:18 Images reviewed and interpretation verified [facility] Osmany Overton MD ECHO [...] diseases documented in this encounter Care Teams Rod Tape Operator Relationship Specialty Start Date End Date Cb Florence PA [address] [place] [address] PCP - General Family Medicine 04/08/20 documented as of this encounter
--- OUTSIDE RECORDS SUMMARY | 2024-06-15 10:28 | XMS_ITS | Encounter Summary ---
Author Organization [facility] [place] [address] Care Team Providers Care Seamless Hosiery Knitter Name Role Phone Cb Florence Primary Care Provider +1- [phone] Reason for Visit * Reason Comments Follow-up Encounter Details Date Type Department Care Team (Late st Contact Info) Description 10/09/2019 9:00 AM EST Office [place] [address] Osmany Holloway MD [facility] [place] [address] Thrush, oral; COPD, moderate; Gastroesophageal reflux disease, [...] CRITICAL CARE??MEDICINE Pulmonary and Critical Care Medicine [facility] [place] [address] Outpatient follow-up visit Follow-up 59 y.o. female [...] tablet by mouth 2 times daily. 60 [id number] ??? baclofen (LIORESAL) 10 mg Tablet Take [...] CLASSIC OXYGEN CONCENTRATOR MISC) 3 L by [facility]Non-Drug; Combo Route) route nightly. ??? chlorpheniramine (CHLOR-TRIMETON) [...] Inhalational Spacing Device Spcr 2 puffs by [facility].(Non-Drug; Combo Route) route daily. ??? fluticasone (FLONASE) [...] 90 tablet 3 ??? Miscellaneous Medical Supply [facility] Face mask for nocturnal O2 (Patient not [...] this 25-minute visit was spent in direct yaip-uk-lnvw counseling with the patient regarding the management [...] morphotypes suggestive of normal upper respiratory caryn [facility] Gram Stain Moderate squamous epithelial cells seen Many Neutrophils seen Many normal upper respiratory caryn [facility] Sputum specimen (specimen) 10/09/2019 10:27 AM EST 10/09/2019 12:22 PM EST Narrative Resulting Agency Comment Spec In Lab Osmany Overton MD MICROBIOLOGY - [facility] ORDERABLES [facility] [place] [address] documented in this encounter Visit Diagnoses Diagnosis Thrush, oral Candidiasis of mouth COPD, moderate Chronic airway obstruction, not elsewhere classified Gastroesophageal reflux disease, esophagitis presence not specified COPD, moderate Chronic airway obstruction, not elsewhere classified documented in this encounter Care Teams Seamless Hosiery Knitter Relationship Specialty Start Date End Date Cb Florence PA [address] [place] [address] PCP - General Family Medicine 11/13/18 03/29/20 documented as of this encounter
--- OUTSIDE RECORDS SUMMARY | 2024-06-15 10:28 | XMS_ITS | Encounter Summary ---
Author Organization [facility]a [facility] [address] Care Team Providers Care Lead Refinery Supervisor Name Role Phone Cb Florence Primary Care Provider +1- [phone] Reason for Visit * Diagnostic Test (Routine) - Closed Specialty Diagnoses / Procedures Referred By Chava alejo Referred To Contact Radiology Diagnoses Type 2 diabetes mellitus with complication, with long-term current use of insulin Procedures NM Gastric Emptying Scan Mary Alice Scanlon MD [facility] GENERAL [place] [address] [place] [address] Referral ID Status Reason Start Date Expiration Date V isits Requested Visits Authorized [id number] Closed Specialty Service Requested 10/08/2018 10/08/2019 1 1 Encounter Details Date Type Department Care Team (Latest Contact Info) Description 01/01/2019 9:47 AM EDT - 01/01/2019 11:59 PM EDT Hospital En[place] [address] Osmany Keller MD [facility] [place] [address] Discharge Disposition: Home Social History [...] on filedocumented in this encounter Care Teams Lead Refinery Supervisor Relationship Specialty Start Date End Date Cb Florence PA [address] [place] [address] PCP - General Family Medicine 11/13/18 03/29/20 documented as of this encounter
--- OUTSIDE RECORDS SUMMARY | 2024-06-15 10:28 | XMS_ITS | Encounter Summary ---
[place] [address] Care Team Providers Care Tax Compliance Agent Name Role Phone Cb Florence Primary Care Provider +1- [phone] Encounter Details Date Type Department Care Team (Late st Contact Info) Description 11/03/2019 [place] [address] Beth Riggs Social History Tobacco Use Types [...] on filedocumented in this encounter Care Teams Tax Compliance Agent Relationship Specialty Start Date End Date Cb Florence PA [address] [place] [address] PCP - General Family Medicine 11/13/18 03/29/20 documented as of this encounter
--- OUTSIDE RECORDS SUMMARY | 2024-06-15 10:30 | XMS_ITS | Encounter Summary ---
Author Organization [facility] [address] Care Team Providers Care Induction Machine Operator Name Role Phone Mary Alice Cage APRN Primary Care Provider Reason for Visit * Reason Comments Medication Refill Encounter Details Date Type Department Care Team (Late st Contact Info) Description 08/09/2018 Refill [place] [address] Osmany Keller MD [facility] [place] [address] Irritable bowel syndrome with diarrhea Social History [...] syndrome documented in this encounter Care Teams Induction Machine Operator Relationship Specialty Start Date End Date Mary Alice Cage APRN PCP - General 10/12/11 11/12/18 documented as of this encounter
--- OUTSIDE RECORDS SUMMARY | 2024-06-15 10:30 | XMS_ITS | Encounter Summary ---
[place] [address] Care Team Providers Care Medical Associate Name Role Phone Mary Alice Cage APRN Primary Care Provider [phone] Reason for Visit * Reason Onset Date Comments Prior Authorization 04/29/2018 Encounter Details Date Type Department Care Team (Late st Contact Info) Description 04/29/2018 [place] [address] Gardenia Bueno CMA GASTROENTEROLOGY DEPT Prior Authorization [...] Prior Authorization 4L Gastroenterology / [place] [address] ?? Subscriber Insurance: [employer] ?? Phone: Fax: ? Physician: Osmany Keller ? Return ?? Pharmacy: [facility] ? Medication Requested: Viberzi ?? Strength: 100 mg Frequency: BID ?? Disp.: 60 Refills: 5 ?? Currently taking: yes ?? Diagnosis for this medication: IBS-D ?? ICD-10 code: K58.0 ? Prior medications trialed in this patient: xifaxan,lomotil, imodium ? Medication: Outcome/Adverse Reactions: treatment failure ?? Decision: approved ? Tracking number/Case number/Reference number: [id number] ?? Effective date: ?? Start: End: 10/27/2018 documented in this encounter Plan of Treatment Not on file documented as of this encounter Visit Diagnoses Not on filedocumented in this encounter Care Teams Medical Associate Relationship Specialty Start Date End Date Mary Alice Cage APRN PCP - General 10/12/11 11/12/18 documented as of this encounter
--- OUTSIDE RECORDS SUMMARY | 2024-06-15 10:30 | XMS_ITS | Encounter Summary ---
Author Organization [facility] [address] Care Team Providers Care Manager Architecture Name Role Phone EdmundsMary Alice davis Rajendra ROY Primary Care Provider [phone] Reason for Visit * Reason Onset Date Comments Appointment 09/18/2017 schedule appt Encounter Details Date Type Department Care Team (Late st Contact Info) Description 09/18/2017 Tele[place] [address] Marcos Manley II Appointment (schedule appt ) [...] filedocumented in this encounter Care Teams Manager Architecture Relationship Specialty Start Date End Date Mary Alice Cage APRN PCP - General 10/12/11 11/12/18 documented as of this encounter
--- OUTSIDE RECORDS SUMMARY | 2024-06-15 10:30 | XMS_ITS | Encounter Summary ---
Author Organization [facility] [place] [address] Care Team Providers Care Armored Car Guard And Driver Name Role Phone CochiseMary Alice davis Rajendra ROY Primary Care Provider [phone] Encounter Details Date Type Department Care Team (Late st Contact Info) Description 08/20/2018 Telephone [place] [id number] Puja Leon Social History Tobacco Use Types [...] 08/20/2018 9:17 AM EST Caller: trinity from [facility] in [place] Call for: nurse Reason for call: controlled [...] on filedocumented in this encounter Care Teams Armored Car Guard And Driver Relationship Specialty Start Date End Date Mary Alice Cage APRN PCP - General 10/12/11 11/12/18 documented as of this encounter
--- OUTSIDE RECORDS SUMMARY | 2024-06-15 10:30 | XMS_ITS | Encounter Summary ---
[place] [address] Care Team Providers Care Haircutter Name Role Phone NilesMary Alice Rajendra ROY Primary Care Provider [phone] Reason for Visit * Reason Onset Date [...] Contact Info) Description 11/07/2017 Telephone [place] [phone] Osmany Keller MD [facility] [place] [address] Post Procedure Call (Patient called with concern [...] on filedocumented in this encounter Care Teams Haircutter Relationship Specialty Start Date End Date Mary Alice Cage APRN PCP - General 10/12/11 11/12/18 documented as of this encounter
--- OUTSIDE RECORDS SUMMARY | 2024-06-15 10:30 | XMS_ITS | Encounter Summary ---
[facility] [place] [address] Care Team Providers Care Hold Worker Name Role Phone Mary Alice Cage APRN Primary Care Provider Reason for Visit * Reason Onset Date Comments Medication Refill 08/20/2018 Encounter Details Date Type Department Care Team (Late st Contact Info) Description 08/20/2018 Refill [place] [address] Osmany Keller MD [facility] [place] [address] Chronic diarrhea Social History Tobacco Use Types [...] Diarrhea documented in this encounter Care Teams Hold Worker Relationship Specialty Start Date End Date Mary Alice Cage APRN PCP - General 10/12/11 11/12/18 documented as of this encounter
--- OUTSIDE RECORDS SUMMARY | 2024-06-15 10:30 | XMS_ITS | Encounter Summary ---
[place] [address] Care Team Providers Care Door Liner Name Role Phone Mary Alice Cage APRN Primary Care Provider [phone] Encounter Details Date Type Department Care Team (Late st Contact Info) Description 08/13/2018 Telephone [place] [address] Gardenia Bueno CMA GASTROENTEROLOGY DEPT Social History [...] 12:07 PM EST Gastroenterology / Hepatology at [facility]?[address]?[place] [address]? Subscriber Insurance: [employer] ?? Phone: ?Fax: ? Physician:?Osmany Keller ? Return ?? Pharmacy:?[facility] ?? Phone:??[phone] Fax:??[phone] ?? Medication Requested: ??Viberzi ?? Strength:??100 mg?Frequency: ??BID ?? Disp.: ??60?Refills: 5 ?? Currently taking: yes ?? Diagnosis for this medication: IBS-D ?? ICD-10 code: K58.0 ? Prior medications trialed in this patient: ??xifaxan,lomotil, imodium ? Medication: Outcome/Adverse Reactions:??treatment failure ?? Decision:??approved? Tracking number/Case number/Reference number: [id number] ? Effective date: ?? 04/29/2018 to 10/17/2018 (previously approved) documented in this encounter Plan of Treatment Not on file documented as of this encounter Visit Diagnoses Not on filedocumented in this encounter Care Teams Door Liner Relationship Specialty Start Date End Date Mary Alice Cage APRN PCP - General 10/12/11 11/12/18 documented as of this encounter
--- OUTSIDE RECORDS SUMMARY | 2024-06-15 10:30 | XMS_ITS | Encounter Summary ---
[place] [address] Care Team Providers Care Set Making Machine Operator Name Role Phone [place] IslandMary Alice davis Rajendra ROY Primary Care Provider [phone] Encounter Details Date Type Department Care Team (Late st Contact Info) Description 08/13/2018 Telephone [place] [phone] Jessica Tejeda Social History Tobacco Use Types [...] on filedocumented in this encounter Care Teams Set Making Machine Operator Relationship Specialty Start Date End Date Mary Alice Cage APRN PCP - General 10/12/11 11/12/18 documented as of this encounter
--- OUTSIDE RECORDS SUMMARY | 2024-06-15 10:30 | XMS_ITS | Encounter Summary ---
Author Organization [facility] [place] [address] Care Team Providers Care Bread Wrapping Machine Feeder Name Role Phone Mary Alice Cage MANUELA Primary Care Provider [phone] Encounter Details Date Type Department Care Team (Late st Contact Info) Description 11/05/2017 12:30 PM EDT - 11/05/2017 1:00 PM EDT Surgery [place] [address] Machelle Keller MD [facility] [place] [address] EGD, W DIRECTED SUBMUCOSAL INJECTION(S) (WRVU 2.39) [...] better as expected. Saturday-Saturday Same Day Endo [phone] 7a-8p Otherwise contact [phone] and ask to speak to the cloth reeler arch cushion press operator Follow-up care is a liriano part [...] Inhalational Spacing Device Spcr 2 puffs by [facility].(Non-Drug; Combo Route) route daily. [...] Keller MD - 11/05/2017 2:[address] [facility] Operative Note Patient Name: Poppy Mclaughlin : [id number] MR#: [id number] Case Date: 11/05/2017 Surgeon: Surgeon(s) and Role: [...] UPPER GI ENDOSCOPY (11/05/2017 1:36 PM EDT) [facility] UPPER GI ENDOSCOPY [facility] Endoscopy ___ Procedure Date: 11/05/2017 1:36 PM ? Patient Name: Poppy Mclaughlin ? Date of : 1960 ? Age: 57 ? Order #: [id number] ? Instrument Name: [id number] ? ___ Procedure: ? Upper GI endoscopy [...] 11/05/2017 1:36 PM EDT Mary Alice Cage MOTOR VEHICLE CLERK GENERAL SURGICAL ORD ERABLES PROVATION documented in [...] esophagus) documented in this encounter Care Teams Bread Wrapping Machine Feeder Relationship Specialty Start Date End Date Mary Alice Cage APRN PCP - General 10/12/11 11/12/18 documented as of this encounter
--- OUTSIDE RECORDS SUMMARY | 2024-06-15 10:30 | XMS_ITS | Encounter Summary ---
[place] [address] Care Team Providers Care Mine Inspector Federal Name Role Phone [place]Mary Alice davis Rajendra ROY Primary Care Provider [phone] Encounter Details Date Type Department Care Team (Late st Contact Info) Description 01/17/2018 Telephone [place] [address] Stef Paul, RN Social History Tobacco Use [...] the person that place the PA. This loan underwriter resubmitted PA with above information in hopes Dexilant will be approved on re review. Returned call to patient, was unable to reach patient by phone, left message on voicemail with above information. documented in this encounter Plan of Treatment Not on file documented as of this encounter Visit Diagnoses Not on filedocumented in this encounter Care Teams Mine Inspector Federal Relationship Specialty Start Date End Date Mary Alice Cage APRN PCP - General 10/12/11 11/12/18 documented as of this encounter
--- OUTSIDE RECORDS SUMMARY | 2024-06-15 10:30 | XMS_ITS | Encounter Summary ---
Author Organization [facility] [place] [address] Care Team Providers Care Wiping Rag Washer Name Role Phone [place] Alice davis Rajendra ROY Primary Care Provider [phone] Encounter Details Date Type Department Care Team (Late st Contact Info) Description 08/27/2018 10:00 AM EST Office [place] [address] Osmany Keller MD [facility] [place] [address] Irritable bowel syndrome, unspecified type; Esophageal dysmotility [...] HISTORY 1. Emergency hernia repair May 2011, [place]. 2. Cholecystectomy 11/24/12. 3. Cervical spine fusion surgery August 2013. 4. Lumbar discectomy 08/2014. 5. [facility] - tendon [facility]. RECENT TESTING 1. [...] EGD 10/26/15: normal; Z-line at 41. 9. Frkdp-sdimb-wfej wireless pH capsule 10/26/15 to 10/28/15 off [...] 18 of 25 minutes spent in direct xrse-wv-modw counseling and the rest in taking history and performing exam. PLAN: Osmany Keller MD Section of Gastroenterology and Hepatology documented in this encounter Plan of Treatment Not on file documented as of this encounter Visit Diagnoses Diagnosis Irritable bowel syndrome, unspecified type Esophageal dysmotility Dyskinesia of esophagus documented in this encounter Care Teams Wiping Rag Washer Relationship Specialty Start Date End Date Mary Alice Cage APRN PCP - General 10/12/11 11/12/18 documented as of this encounter
--- OUTSIDE RECORDS SUMMARY | 2024-06-15 10:30 | XMS_ITS | Encounter Summary ---
Author Organization [facility] [place] [address] Care Team Providers Care Marketing Administrator Name Role Phone Mary Alice Cage MANUELA Primary Care Provider [phone] Encounter Details Date Type Department Care Team (Latest Contact Info) Description 11/05/2017 10:45 AM EDT - 11/05/2017 4:08 PM EDT Hospital En[place] [address] Osmany Keller MD [facility] [place] [address] Discharge Disposition: Home Social History Tobacco Use [...] better as expected. Saturday-Saturday Same Day Endo [phone] 7a-8p Otherwise contact [phone] and ask to speak to the party plan sales unit sales leader c python developer Follow-up care is a liriano part of your treatment and safety. Be sure to make and go to all appointments, and call your doctor if you are having problems. Instructions have been reviewed and patient expresses understanding * Patient Instructions* Osmany Keller MD - 11/05/2017 2:03 PM EDT [...] CLASSIC OXYGEN CONCENTRATOR MISC) 3 L by [employer].(Non-Drug; Combo Route) route nightly. diphenoxylate-atropin e (LOMOTIL) [...] [facility] [place]Non-Drug; Combo Route) route daily. promethazine (PHENERGAN) 25 [...] Keller MD - 11/05/2017 2:02 PM EDT [facility] Operative Note Patient Name: Poppy Mclaughlin : [id number] MR#: [id number] Case Date: 11/05/2017 Surgeon: Surgeon(s) and Role: [...] (11/05/2017 1:36 PM EDT) UPPER GI ENDOSCOPY [facility] Endoscopy ___ Procedure Date: 11/05/2017 1:36 PM ? Patient Name: Poppy Mclaughlin ? Date of : 1960 ? Age: 57 ? Order #: [id number] ? Instrument Name: [id number] ? ___ Procedure: ? Upper GI endoscopy [...] 11/05/2017 1:36 PM EDT Mary Alice Cage SAUSAGE WRAPPER GENERAL SURGICAL ORD ERABLES PROVATION documented in [...] esophagus) documented in this encounter Care Teams Marketing Administrator Relationship Specialty Start Date End Date Mary Alice Cage APRN PCP - General 10/12/11 11/12/18 documented as of this encounter
--- OUTSIDE RECORDS SUMMARY | 2024-06-15 10:30 | XMS_ITS | Encounter Summary ---
Author [facility] [address] Care Team Providers Care Loan Underwriter Name Role Phone Mary Alice Cage APRN Primary Care Provider [phone] Reason for Visit * Reason Onset Date Comments Medication Refill 11/03/2018 Encounter Details Date Type Department Care Team (Late st Contact Info) Description 11/03/2018 [place] [address] [facility] [place] [address] Social History Tobacco Use Types Packs/Day Years [...] on filedocumented in this encounter Care Teams Loan Underwriter Relationship Specialty Start Date End Date Mary Alice Cage APRN PCP - General 10/12/11 11/12/18 documented as of this encounter
--- OUTSIDE RECORDS SUMMARY | 2024-06-15 10:30 | XMS_ITS | Encounter Summary ---
Author Organization [facility] [place] [address] Care Team Providers Care Quality Control Systems Manager Name Role Phone Cb Florence Primary Care Provider [phone] Reason for Visit * Auth/Cert Specialty Diagnoses / Procedures Referred By Chava alejo Referred To Contact Diagnoses COPD exacerbation ARDS Referral ID Status Reason Start Date Expiration Date Visits Re quested Visits Authorized [id number] 1 1 Encounter Details Date Type Department Care Team (Late st Contact Info) Description 11/13/2018 9:40 PM EDT - 11/25/2018 1:26 PM EDT Hospital Encounter [address] [id number] Vivian Valdez Jr., MD [facility] [place] [address] Danica Friedman MD [facility] [place] [place] [address] [place] [address] [place] [address] Hypertension, unspecified type; Screening for cardiovascular condition Discharge Disposition: Intermediate Facility Social History Tobacco Use Types Packs/Day [...] mellitus, and hypertension presenting as transfer from [facility] for acute hypoxemic and hypercarbic respiratory failure. ?? Patient was diagnosed with influenza on October 30 and received course of Oseltamivir as well levofloxacin and prednisone for concurrent COPD exacerbation following evaluation in [facility]. ?? Patient was clinically improving per her , José Manuel, however still continued to have ongoing cough. ??Patient was last seen in usual state of health around 9 PM on 11/12 when she went to bed. ??Thefollowing morning, her found her to be somnolent and confused. ??Patient was taken to [facility] emergency department where was noted to be [...] volume overload. ?? Patient was transferred to [facility] ICU for acute hypoxemic and hypercarbic respiratory failure with concerns for ARDS. ?? Laboratory studies at [facility]: ?? from 0800: WBC: 17.2, Hgb [...] resolved. She was extubated on 11/19/18 to [place] and her oxygen saturations remained stable, back [...] Refills: 3 ipratropium 42 mcg (0.06 %) [place] Commonly known as: ATROVENT USE TWO SPRAYS [...] inhalational spacing device Spcr 2 puffs by [facility].(Non-Drug; Combo Route) route daily. 2 puff Refills: 0 loratadine 10 mg Tab Commonly known as: CLARITIN Take 10 mg by mouth daily. 10 mg Refills: 0 [facility] 3 L by [facility].(Non-Drug; Combo Route) route nightly. 3 L Refills: 0 Replaced By [facility] Face mask for nocturnal O2 Quantity: 1 [...] HTN who presented as a transfer from [facility] for acute hypoxemic and hypercarbic respiratory failure and ARDS in the setting of recent influenza infection. Treatment Number PT 2 Vital Signs Heart Rate 91 (after walking HR in 100s) SpO2 95 % (95% at rest, dips to 88% after ambulating) Pain Scale/Rating Pain Level 5 Transfer Assessment/Treatment Bed-Chair [place] (Transfers) supervision required Uvg-Wphwz-Vsc Assistive Device (Transfers) rolling walker [place] (Sit-Stand Transfers) contact guard assist [place] (Stand-Sit Transfers) contact guard assist Fdu-Nhmxw-Gue Assistive Device (Transfers) rolling walker Comment (Transfers) several reps sit<>stand, with cues and contact guard assist Gait Assessment/Treatment [place] (Gait) contact guard assist Assistive Device (Gait) rolling walker Distance in Feet (Gait) 75 Comment (Gait) slow moving, steady with no LOB [facility] Basic Mobility 5 Click AM[facility] Mobility 5 Click Completed? Yes Turning from [...] wheelchair) 3- A Little To walk in [facility]? 3 - A Little -[facility] Basic Mobility Raw Score 5 item 17 Basic Mobility Standardized T-Scale Score 5 42.42 Basic Mobility 5 CMS 0-100% 35.81 AM-[facility] Basic Mobility CMS Modifier CJ Balance Skills Training Sitting Balance: Static good balance Sitting Balance: Dynamic good balance Yoq-oq-Hajts Balance good balance Standing Balance: Static good balance Standing Balance: Dynamic fair balance Therapeutic Exercise Comment (Therapeutic Exercise) Provided IS and instructed in use. maribel to achieve 1000 mL after several trials Bed Mobility Goal Bed Mobility Goal, Date Established 11/21/18 Bed Mobility Goal, Time to Achieve 30 days Bed Mobility Goal, Activity Type supine to sit/sit to supine Bed Mobility Goal, [place] Level conditional independence Bed Mobility Goal, Date Goal Reviewed 11/24/18 Bed Mobility Goal, Outcome Achieved goal ongoing Gait Training Goal Gait Training Goal, Date Established 11/21/18 Gait Training Goal, Time to Achieve 30 days Gait Training Goal, [place] Level supervision required Gait Training Goal, Assist [...] 30 days Transfer Training Goal, Activity Type cyq-mn-gkmqj/qniug-iu-ker;idy-tm-ggpvs/phxil-ic-dwn Transfer Train Goal, [place] Level supervision required Transfer Training Goal, Assist Device walker, rolling Transfer Train Goal, Date Goal Reviewed 11/24/18 Transfer Training Goal, Outcome goal ongoing Clinical Impression Therapy Frequency 2-4 times/wk Anticipated Discharge Disposition half-way facility ?? Occupational Therapy Recommendations Summary: Occupational Therapy Evaluation ?? Pertinent History of Current Problem: Poppy Pino is a 58 y.o. female w/ PMH of COPD on home O22-3L, IBS, GERD, diabetes mellitus, and HTN who presented as a transfer from [facility] for acute hypoxemic and hypercarbic respiratory [...] Medications whole with water. BENI CUADRA MS, CCC-[employer] CONSULTANT Future Appointments and Orders Future Appointments and Orders Future Appointments Provider Department Dept Phone 12/17/2018 10:00 AM Osmany Keller MD Gastroenterology at [place] Arrive at: Surveillance System Monitor Area [phone] Provider Contact Information: Harsha [place] [address] Discharge References/Attachments: Discharge References/Attachments None For questions regarding this document or issues relating to this hospitalization on the Medical Service, please contact your inpatient physician through the [facility] Skid Strapper . Issues afterhours and on weekends will be handled by the Hospitalist staff on-call. Signed: Harsha Tejeda MD 11/25/2018 documented in this encounter Discharge Instructions * Discharge Instructions* Vijay Powers [employer] CONSULTANT - 11/24/2018 11:54 AM EDT Speech Pathology Recommendations as of 11/24/2018 RECOMMENDATIONS: ?? Regular texture diet and thin liquids. ?? Upright to feed. ?? Medications whole with water. VIJAY B DORKO, [employer]ACLE [employer] CONSULTANT MS, CCC-[employer]AC[employer] CONSULTANT * Patient Instructions* Harsha Tejeda MD - 11/25/2018 8:47 AM EDT [...] HTN who presented as a transfer from [facility] for acute hypoxemic and hypercarbic respiratory failure and ARDS in the setting of recent influenza infection. Treatment Number PT 2 Vital Signs Heart Rate 91 (after walking HR in 100s) SpO2 95 % (95% at rest, dips to 88% after ambulating) Pain Scale/Rating Pain Level 5 Transfer Assessment/Treatment Bed-Chair [place] (Transfers) supervision required Fug-Zlbik-Cwo Assistive Device (Transfers) rolling walker [place] (Sit-Stand Transfers) contact guard assist [place] (Stand-Sit Transfers) contact guard assist Pvx-Pqeck-Hri Assistive Device (Transfers) rolling walker Comment (Transfers) several reps sit<>stand, with cues and contact guard assist Gait Assessment/Treatment [place] (Gait) contact guard assist Assistive Device (Gait) rolling walker Distance in Feet (Gait) 75 Comment (Gait) slow moving, steady with no LOB [facility] Basic Mobility 5 Click [facility] Mobility 5 Click Completed? Yes Turning from [...] wheelchair) 3- A Little To walk in [facility]? 3 - A Little [facility] Basic Mobility Raw Score 5 item 17 Basic Mobility Standardized T-Scale Score 5 42.42 Basic Mobility 5 CMS 0-100% 35.81 AM-[facility] Basic Mobility CMS Modifier CJ Balance Skills Training Sitting Balance: Static good balance Sitting Balance: Dynamic good balance Fij-ug-Hxfwt Balance good balance Standing Balance: Static good balance Standing Balance: Dynamic fair balance Therapeutic Exercise Comment (Therapeutic Exercise) Provided IS and instructed in use. maribel to achieve 1000 mL after several trials Bed Mobility Goal Bed Mobility Goal, Date Established 11/21/18 Bed Mobility Goal, Time to Achieve 30 days Bed Mobility Goal, Activity Type supine to sit/sit to supine Bed Mobility Goal, [place] Level conditional independence Bed Mobility Goal, Date Goal Reviewed 11/24/18 Bed Mobility Goal, Outcome Achieved goal ongoing Gait Training Goal Gait Training Goal, Date Established 11/21/18 Gait Training Goal, Time to Achieve 30 days Gait Training Goal, [place] Level supervision required Gait Training Goal, Assist [...] 30 days Transfer Training Goal, Activity Type cnr-rj-gcbgb/irxxi-cp-zhy;eux-nv-vwpdn/hksga-gt-yxe Transfer Train Goal, [place] Level supervision required Transfer Training Goal, Assist Device walker, rolling Transfer Train Goal, Date Goal Reviewed 11/24/18 Transfer Training Goal, Outcome goal ongoing Clinical Impression Therapy Frequency 2-4 times/wk Anticipated Discharge Disposition half-way facility ?? Occupational Therapy Recommendations Summary: Occupational Therapy Evaluation ?? Pertinent History of Current Problem: Poppy Pino is a 58 y.o. female w/ PMH of COPD on home O22-3L, IBS, GERD, diabetes mellitus, and HTN who presented as a transfer from [facility] for acute hypoxemic and hypercarbic respiratory [...] CLASSIC OXYGEN CONCENTRATOR MISC) 3 L by [facility].(Non-Drug; Combo Route) route nightly. diphenoxylate-atropin e (LOMOTIL) 2.5-0.025 mg Tablet Take 1 tablet by mouth 4 times daily. DO NOT restarted this unless you are having diarrhea. 120 tablet 7 06/11/2014 albuterol (PROVENTIL HFA;VENTOLIN HFA) 90 mcg/actuation HFA Aerosol Inhaler Inhale 2 puffs into the lungs every 4 hours as needed. Use with spacer Inhalational Spacing Device Spcr 2 puffs by Replaced By [facility].(Non-Drug; Combo Route) route daily. promethazine (PHENERGAN) 25 [...] Dick MD Pt discharged to Rehab at [facility]. D/C instructions reviewed. IVs d/c'd. Report given to RN at [facility]. Pt and spouse verbalized understanding. Transported via wheelchair w and all belongings. NAD * Dianne Toure - 11/25/2018 12:44 PM EDT Office of Care Management/Telephone Directory Distributor Driver Patient Name: Poppy Pino : 1960 Patient has been offered a snf bed at [facility] . is transporting pt. Please call Nursing Report to [phone], ask for hands hanger. Info to accompany patient: Narcotic Prescriptions Copies of Medication Administration Records and IV sheets for past 10 days. Plan: Telephone Directory Distributor Driver will be available to the patient and [employer] Advisor-RN and/or Social Workerfor further assistance. [facility] [address] [place] [id number] [address] [place] * Nery Marin RN - 11/25/2018 11:29 AM EDT Office of Care Management (OCM)-[employer] Advisor discharge planning [employer] AdvisorNery Service:[phone] Reviewed medical record and in rounds with,Charge/Resource RN, LEAD SPRINKLER, and CM, PT and Hospitalist. Poppy Pino is ready for discharge to [facility]. Met with the patient who is comfortable with the plan. DPOA/POA/surrogate notified by this health science writer of the plan. Transportation provided by via private car. notified of plan. Charge Nurse updated. Resource Specialists updated. Nery Marin [employer] Advisor, Care Management [phone] * Kim Dick MD [...] spent >30 minutes (Day of Discharge Code 70310) involved in the final examination of the [...] Care reviewed with primary medical team (Service: [id number]) and discussed in interdisciplinary rounds. Medical record reviewed. Patient is medically ready to go today to SNf. Met with patient and at bedside and receivedchoices. [facility] will take tomorrow and will be transported by via private car. Care Management will continue to monitor progress, follow for continuity of care, and assist with discharge planning. [employer] Advisor: Nery Marin Pager [phone] * Nery Marin RN - 11/24/2018 12:53 PM EDT Based on discussions with the multi-disciplinary healthcare team, the patient would benefit from snf level of care at discharge. ?? I have met with the patient/factory representative to discuss discharge planning needs. I have provided the [facility], Office of Care Management letter from the Region Manager pertaining to rehab referrals. I have also provided a letter describing our affiliations within the [facility] and educated them about their right to choose where referrals are placed. ?? I reviewed the different levels of rehab including SNF, swing, acute and LTAC with the patient/factory representative. ?? The patient/factory representative has been provided a list of facilities within their preferred geographic area. ?? I have requested that the patient/factory representative provide at least three choices for referral. ?? The patient/factory representative have requested referrals to: ?? 1. [facility] ?? 2. [facility] ?? 3. [facility] ?? Expected date of discharge:now Note routed to Telephone Directory Distributor Driver who will communicate referrals to facilities and [...] HTN who presented as a transfer from [facility] for acute hypoxemic and hypercarbic respiratory [...] Procedure Component Value Units Date/Time Blood culture [[id number]] Collected: 11/17/18 1420 Lab Status: Final result Specimen: Blood from Wrist, Left Updated: 11/22/18 1501 Blood Culture No growth at 5 days. Lower Respiratory Culture Bronchial Alveolar Lavage [[id number]] (Abnormal) Collected: 11/17/18 1349 Lab Status: Final result Specimen: Bronchial Alveolar Lavage Updated: 11/19/18 0922 Lower Respiratory Culture No growth Gram Stain -- Few Neutrophils seen Rare Gram Positive Rods seen Blood culture [[id number]] Collected: 11/17/18 1230 Lab Status: Final result Specimen: Blood from Hand, Right Updated: 11/22/18 1501 Blood Culture No growth at 5 days. Lower Respiratory Culture Tracheal Aspirate [[id number]] Collected: 11/16/18 1009 Lab Status: Final result Specimen: Tracheal Aspirate Updated: 11/16/18 1338 Gram Stain -- Few Neutrophils seen No squamous epithelial cells seen No microorganisms seen. Useful clinical information is unlikely from specimens in which no microorganisms are seen on Gram Stain, Culture not performed. Blood culture [[id number]] Collected: 11/14/18 0143 Lab Status: Final result Specimen: Blood Updated: 11/19/18 0701 Blood Culture No growth at 5 days. Legionella Urinary Antigen [[id number]] Collected: 11/13/18 2350 Lab Status: Final result [...] test. Sensitivity: 95% Specificity 95%. Blood culture [[id number]] Collected: 11/13/18 2240 Lab Status: Final result Specimen: Blood Updated: 11/19/18 0701 Blood Culture No growth at 5 days. Lower Respiratory Culture Bronchial Alveolar Lavage [[id number]] Collected: 11/13/182214 Lab Status: Final result Specimen: Bronchial Alveolar Lavage Updated: 11/16/18824 Lower Respiratory Culture No growth Gram Stain -- Few Neutrophils seen No squamous epithelial cells Rare mixed bacterial morphotypes suggestive of normal upper respiratory caryn Respiratory Panel PCR [[id number]] (Abnormal) Collected: 11/13/182214 Lab Status: Final result Specimen: Nasopharyngeal Swab Updated: 11/13/182349 Resp Panel Source LONG DISTANCE OPERATOR Swab Resp Panel PCR Positive Comment: Respiratory Panels are performed on the [employer], using multiplexed PCR nucleic acid detection. Negative [...] of two midnights or is on the [facility] inpatient only procedure list (status C) due to: the patient has met Inpatient IPI criteria and is awaiting rehabilitation or half-way facility placement with active referrals in process [...] HTN who presented as a transfer from [facility] for acute hypoxemic and hypercarbic respiratory [...] Procedure Component Value Units Date/Time Blood culture [[id number]] Collected: 11/17/18 1420 Lab Status: Final result Specimen: Blood from Wrist, Left Updated: 11/22/18 1501 Blood Culture No growth at 5 days. Lower Respiratory Culture Bronchial Alveolar Lavage [[id number]] (Abnormal) Collected: 11/17/18 1349 Lab Status: Final result Specimen: Bronchial Alveolar Lavage Updated: 11/19/18 0922 Lower Respiratory Culture No growth Gram Stain -- Few Neutrophils seen Rare Gram Positive Rods seen Blood culture [[id number]] Collected: 11/17/18 1230 Lab Status: Final result Specimen: Blood from Hand, Right Updated: 11/22/18 1501 Blood Culture No growth at 5 days. Lower Respiratory Culture Tracheal Aspirate [[id number]] Collected: 11/16/18 1009 Lab Status: Final result Specimen: Tracheal Aspirate Updated: 11/16/18 1338 Gram Stain -- Few Neutrophils seen No squamous epithelial cells seen No microorganisms seen. Useful clinical information is unlikely from specimens in which no microorganisms are seen on Gram Stain, Culture not performed. Blood culture [[id number]] Collected: 11/14/18 0143 Lab Status: Final result Specimen: Blood Updated: 11/19/18 0701 Blood Culture No growth at 5 days. Legionella Urinary Antigen [[id number]] Collected: 11/13/18 2350 Lab Status: Final result [...] test. Sensitivity: 95% Specificity 95%. Blood culture [[id number]] Collected: 11/13/18 2240 Lab Status: Final result Specimen: Blood Updated: 11/19/18 0701 Blood Culture No growth at 5 days. Lower Respiratory Culture Bronchial Alveolar Lavage [[id number]] Collected: 11/13/182214 Lab Status: Final result Specimen: Bronchial Alveolar Lavage Updated: 11/16/18 0825 Lower Respiratory Culture No growth Gram Stain -- Few Neutrophils seen No squamous epithelial cells Rare mixed bacterial morphotypes suggestive of normal upper respiratory caryn Respiratory Panel PCR [[id number]] (Abnormal) Collected: 11/13/182214 Lab Status: Final result Specimen: Nasopharyngeal Swab Updated: 11/13/182349 Resp Panel Source LONG DISTANCE OPERATOR Swab Resp Panel PCR Positive Comment: Respiratory Panels are performed on the [employer], using multiplexed PCR nucleic acid detection. Negative [...] IPI criteria and is awaiting rehabilitation or half-way facility placement with active referrals in process [...] HTN who presented as a transfer from [facility] for acute hypoxemic and hypercarbic respiratory [...] Procedure Component Value Units Date/Time Blood culture [[id number]] Collected: 11/17/18 1420 Lab Status: Preliminary result Specimen: Blood from Wrist, Left Updated: 11/21/18 1501 Blood Culture No growth at 4 days. Lower Respiratory Culture Bronchial Alveolar Lavage [[id number]] (Abnormal) Collected: 11/17/18 1349 Lab Status: Final result Specimen: Bronchial Alveolar Lavage Updated: 11/19/18 0922 Lower Respiratory Culture No growth Gram Stain -- Few Neutrophils seen Rare Gram Positive Rods seen Blood culture [[id number]] Collected: 11/17/18 1230 Lab Status: Preliminary result Specimen: Blood from Hand, Right Updated: 11/21/18 1501 Blood Culture No growth at 4 days. Lower Respiratory Culture Tracheal Aspirate [[id number]] Collected: 11/16/18 1009 Lab Status: Final result Specimen: Tracheal Aspirate Updated: 11/16/18 1338 Gram Stain -- Few Neutrophils seen No squamous epithelial cells seen No microorganisms seen. Useful clinical information is unlikely from specimens in which no microorganisms are seen on Gram Stain, Culture not performed. Blood culture [[id number]] Collected: 11/14/18 0143 Lab Status: Final result Specimen: Blood Updated: 11/19/18 0701 Blood Culture No growth at 5 days. Legionella Urinary Antigen [[id number]] Collected: 11/13/18 235 Lab Status: Final result [...] test. Sensitivity: 95% Specificity 95%. Blood culture [[id number]] Collected: 11/13/18 2240 Lab Status: Final result Specimen: Blood Updated: 11/19/18 0701 Blood Culture No growth at 5 days. Lower Respiratory Culture Bronchial Alveolar Lavage [[id number]] Collected: 11/13/182214 Lab Status: Final result Specimen: Bronchial Alveolar Lavage Updated: 11/16/18 0825 Lower Respiratory Culture No growth Gram Stain -- Few Neutrophils seen No squamous epithelial cells Rare mixed bacterial morphotypes suggestive of normal upper respiratory caryn Respiratory Panel PCR [[id number]] (Abnormal) Collected: 11/13/182214 Lab Status: Final result Specimen: Nasopharyngeal Swab Updated: 11/13/182349 Resp Panel Source LONG DISTANCE OPERATOR Swab Resp Panel PCR Positive Comment: Respiratory Panels are performed on the [employer], using multiplexed PCR nucleic acid detection. Negative [...] encounter: 80 kg (176 lb 6.4 oz). D Lo Body Weight (IBW): D Lo body weight: 57 kg (125 lb 10.6 [...] to reach the patient's provider, team pager #[phone], regarding above. VICKIE BARRIENTOS Beeper #: * [...] HTN who presented as a transfer from [facility] for acute hypoxemic and hypercarbic respiratory [...] Procedure Component Value Units Date/Time Blood culture [[id number]] Collected: 11/17/18 1420 Lab Status: Preliminary result Specimen: Blood from Wrist, Left Updated: 11/20/18 1501 Blood Culture No growth at 3 days. Lower Respiratory Culture Bronchial Alveolar Lavage [[id number]] (Abnormal) Collected: 11/17/18 1349 Lab Status: Final result Specimen: Bronchial Alveolar Lavage Updated: 11/19/18 0922 Lower Respiratory Culture No growth Gram Stain -- Few Neutrophils seen Rare Gram Positive Rods seen Blood culture [[id number]] Collected: 11/17/18 1230 Lab Status: Preliminary result Specimen: Blood from Hand, Right Updated: 11/20/18 1501 Blood Culture No growth at 3 days. Lower Respiratory Culture Tracheal Aspirate [[id number]] Collected: 11/16/18 1009 Lab Status: Final result Specimen: Tracheal Aspirate Updated: 11/16/18 1338 Gram Stain -- Few Neutrophils seen No squamous epithelial cells seen No microorganisms seen. Useful clinical information is unlikely from specimens in which no microorganisms are seen on Gram Stain, Culture not performed. Blood culture [[id number]] Collected: 11/14/18 0143 Lab Status: Final result Specimen: Blood Updated: 11/19/18 0701 Blood Culture No growth at 5 days. Legionella Urinary Antigen [[id number]] Collected: 11/13/18 2350 Lab Status: Final result [...] test. Sensitivity: 95% Specificity 95%. Blood culture [[id number]] Collected: 11/13/18 2240 Lab Status: Final result Specimen: Blood Updated: 11/19/18 0701 Blood Culture No growth at 5 days. Lower Respiratory Culture Bronchial Alveolar Lavage [[id number]] Collected: 11/13/182214 Lab Status: Final result Specimen: Bronchial Alveolar Lavage Updated: 11/16/18 0825 Lower Respiratory Culture No growth Gram Stain -- Few Neutrophils seen No squamous epithelial cells Rare mixed bacterial morphotypes suggestive of normal upper respiratory caryn Respiratory Panel PCR [[id number]] (Abnormal) Collected: 11/13/182214 Lab Status: Final result Specimen: Nasopharyngeal Swab Updated: 11/13/18 2350 Resp Panel Source LONG DISTANCE OPERATOR Swab Resp Panel PCR Positive Comment: Respiratory Panels are performed on the [employer], using multiplexed PCR nucleic acid detection. Negative [...] Alternative decision-maker Harsha Tejeda MD, PGY-1 Medicine [facility] #[id number] Attending Attestation Please see Ileana's note for [...] IPI criteria and is awaiting rehabilitation or half-way facility placement with active referrals in process Antonette Ulrich MD * Lizbet Diaz RN - 11/20/2018 5:56 PM EDT Pt transferred to [facility] Rm 262. DBP elevated, tachypneaic other [...] HTN who presented as a transfer from [facility] for acute hypoxemic and hypercarbic respiratory [...] resolved. She was extubated on 11/19/18 to [place] and her oxygen saturations remained stable. ?? [...] Procedure Component Value Units Date/Time Blood culture [[id number]] Collected: 11/17/18 1420 Lab Status: Preliminary result Specimen: Blood from Wrist, Left Updated: 11/19/18 1501 Blood Culture No growth at 2 days. Lower Respiratory Culture Bronchial Alveolar Lavage [[id number]] (Abnormal) Collected: 11/17/18 1349 Lab Status: Final result Specimen: Bronchial Alveolar Lavage Updated: 11/19/18 0922 Lower Respiratory Culture No growth Gram Stain -- Few Neutrophils seen Rare Gram Positive Rods seen Blood culture [[id number]] Collected: 11/17/18 1230 Lab Status: Preliminary result Specimen: Blood from Hand, Right Updated: 11/19/18 1501 Blood Culture No growth at 2 days. Lower Respiratory Culture Tracheal Aspirate [[id number]] Collected: 11/16/18 1009 Lab Status: Final result Specimen: Tracheal Aspirate Updated: 11/16/18 1338 Gram Stain -- Few Neutrophils seen No squamous epithelial cells seen No microorganisms seen. Useful clinical information is unlikely from specimens in which no microorganisms are seen on Gram Stain, Culture not performed. Blood culture [[id number]] Collected: 11/14/18 0143 Lab Status: Final result Specimen: Blood Updated: 11/19/18 0701 Blood Culture No growth at 5 days. Legionella Urinary Antigen [[id number]] Collected: 11/13/18 2350 Lab Status: Final result [...] test. Sensitivity: 95% Specificity 95%. Blood culture [[id number]] Collected: 11/13/18 2240 Lab Status: Final result Specimen: Blood Updated: 11/19/18 0701 Blood Culture No growth at 5 days. Lower Respiratory Culture Bronchial Alveolar Lavage [[id number]] Collected: 11/13/182214 Lab Status: Final result Specimen: Bronchial Alveolar Lavage Updated: 11/16/18 0825 Lower Respiratory Culture No growth Gram Stain -- Few Neutrophils seen No squamous epithelial cells Rare mixed bacterial morphotypes suggestive of normal upper respiratory caryn Respiratory Panel PCR [[id number]] (Abnormal) Collected: 11/13/182214 Lab Status: Final result Specimen: Nasopharyngeal Swab Updated: 11/13/18 2350 Resp Panel Source LONG DISTANCE OPERATOR Swab Resp Panel PCR Positive Comment: Respiratory Panels are performed on the [employer], using multiplexed PCR nucleic acid detection. Negative [...] decision-maker Harsha Tejeda MD, PGY-1 Medicine Purple #[id number] * Danica Friedman MD - 11/20/2018 11:10 AM EDT MICU STAFF PROGRESS NOTE Critical Care Medicine Author: Danica Friedman MD Patient seen and examined on critical [...] supporting interventions and documentation on the unit. Danica Friedman MD, PhD 11/20/2018 * Kelly Bermudez MD [...] Gas) No results found for: PHART, PO2ART, [id number] Lines: Central Line L subclavian, L radial [...] Code Status: FULL CODE Disposition: tranfer to [facility] medicine Kelly Bermudez MD Internal Medicine Resident, PGY-1 11/20/18 7:06 AM * Real Sanchez, SHADE HANGER - 11/20/2018 12:49 AM EDT Received Pt [...] Gas) No results found for: PHART, PO2ART, [id number] Lines: Central Line L subclavian, L radial [...] Medicine Resident, PGY-1 11/19/18 9:55 AM * Danica Friedman MD - 11/19/2018 9:54 AM EDT MICU STAFF PROGRESS NOTE Critical Care Medicine Author: Danica Friedman MD Patient seen and examined on critical [...] supporting interventions and documentation on the unit. Danica Friedman MD, PhD 11/19/2018 * Erika Hernandez RN [...] Medicine Resident, PGY-1 11/18/18 11:39 AM * Danica Friedman MD - 11/18/2018 11:37 AM EDT MICU STAFF PROGRESS NOTE Critical Care Medicine Author: Danica Friedman MD Patient seen and examined on critical [...] supporting interventions and documentation on the unit. Danica Friedman MD, PhD 11/18/2018 * Real Sanchez RRT [...] the decision to increase her peep to [id number] at 1030 based on her CXR and her P/F ratio of 177 down some from the day before. The pt is overall stable on these settings and no plan for SBT at this time. Marcos Mcgraw RCP * Danica Friedman MD - 11/17/2018 10:02 AM EDT MICU STAFF PROGRESS NOTE Critical Care Medicine Author: Danica Friedman MD Patient seen and examined on critical [...] supporting interventions and documentation on the unit. Danica Friedman MD, PhD 11/17/2018 * Sherice Garcia, RD [...] oz). Admit Weight: 82.4 kg BMI: 32.18 D Lo Body Weight: 56.7 kg I/O last 1 [...] rounds. Nutrition to follow. VICKIE CAVAZOS Pager [phone] * Kelly Bermudez MD - 11/17/2018 6:47 [...] PGY-1 11/17/18 6:47 AM * Kim Sams, SHADE HANGER - 11/16/2018 8:37 PM EDT AMV Protocol: [...] settings overnight-continue to wean per AMV protocol. IKM SAMS RRT * Marcos Mcgraw RCP - [...] Pulmonary / Internal Medicine Coleman Cummings MD [facility] Hospital Course 58 y.o. female w/ PMH of COPD on home O2 2-3L, IBS, diabetes mellitus, and HTN who presented as a transfer from [facility] for ARDS in the setting of [...] Procedure Component Value Units Date/Time Blood culture [[id number]] Collected: 11/14/18 0143 Lab Status: Preliminary result Specimen: Blood Updated: 11/16/18700 Blood Culture No growth at 2 days. Legionella Urinary Antigen [[id number]] Collected: 11/13/182349 Lab Status: Final result Specimen: [...] test. Sensitivity: 95% Specificity 95%. Blood culture [[id number]] Collected: 11/13/18 2240 Lab Status: Preliminary result Specimen: Blood Updated: 11/16/18700 Blood Culture No growth at 2 days. Lower Respiratory Culture Bronchial Alveolar Lavage [[id number]] Collected: 11/13/182214 Lab Status: Final result Specimen: Bronchial Alveolar Lavage Updated: 11/16/18824 Lower Respiratory Culture No growth Gram Stain -- Few Neutrophils seen No squamous epithelial cells Rare mixed bacterial morphotypes suggestive of normal upper respiratory caryn Respiratory Panel PCR [[id number]] (Abnormal) Collected: 11/13/182214 Lab Status: Final result Specimen: Nasopharyngeal Swab Updated: 11/13/182349 Resp Panel Source LONG DISTANCE OPERATOR Swab Resp Panel PCR Positive Comment: Respiratory Panels are performed on the [employer], using multiplexed PCR nucleic acid detection. Negative [...] / 79 DLCO 16 / 75 TTE [facility] 11/28 Transthoracic Echocardiogram: 1. Left ventricle: [...] documentation on the unit. Coleman Cummings MD [facility] Clinical [employer] report developer [facility] [employer] Region Manager - ICU/Pulmonary/Critical Care [facility] * Natali Kingston A - 11/16/2018 7:24 [...] in VC 35%, TV 400, peep 10. [id number] pt had 40 beat run of Vtach. BP dropped to 49/39 (42) during episode and did not sustain, pt converted back to NSR without intervention. Team was notified of event by covering RN. Afebrile. UOP adequate. Will continue to monitor. * Joyce Hardy [facility] - 11/15/2018 8:01 PM EDT AMV: Yes [...] and HTN who presented as atransfer from [facility] for ARDS in the setting of [...] ventilation and was titrated from 12 to [id number] peep today, she remains on a rate [...] Pulmonary / Internal Medicine Coleman Cummings MD [facility] Hospital Course 58 y.o. female w/ PMH of COPD on home O2 2-3L, IBS, diabetes mellitus, and HTN who presented as a transfer from [facility] for ARDS in the setting of [...] Procedure Component Value Units Date/Time Blood culture [[id number]] Collected: 11/14/18 0143 Lab Status: Preliminary result Specimen: Blood Updated: 11/15/18 0701 Blood Culture No growth at 1 day. Legionella Urinary Antigen [[id number]] Collected: 11/13/182349 Lab Status: Final result Specimen: [...] test. Sensitivity: 95% Specificity 95%. Blood culture [[id number]] Collected: 11/13/18 2240 Lab Status: Preliminary result Specimen: Blood Updated: 11/15/18 0701 Blood Culture No growth at 1 day. Lower Respiratory Culture Bronchial Alveolar Lavage [[id number]] Collected: 11/13/182214 Lab Status: Preliminary result Specimen: Bronchial Alveolar Lavage Updated: 11/15/18 0923 Lower Respiratory Culture No growth to date. Gram Stain -- Few Neutrophils seen No squamous epithelial cells Rare mixed bacterial morphotypes suggestive of normal upper respiratory caryn Respiratory Panel PCR [[id number]] (Abnormal) Collected: 11/13/182214 Lab Status: Final result Specimen: Nasopharyngeal Swab Updated: 11/13/182349 Resp Panel Source LONG DISTANCE OPERATOR Swab Resp Panel PCR Positive Comment: Respiratory Panels are performed on the [employer], using multiplexed PCR nucleic acid detection. Negative [...] documentation on the unit. Coleman Cummings MD [facility] Clinical [employer] report developer [facility] [employer] Region Manager - ICU/Pulmonary/Critical Care [facility] * Kelly Bermudez MD - 11/15/2018 7:08 [...] feeds Code Status: FULL CODE Disposition: ICU Kelyl Bermudez MD Internal Medicine Resident, PGY-1 11/15/18 7:09 AM * Nina Enriquez [facility] - 11/14/2018 9:00 PM EDT AMV Protocol: [...] monitor and support. Nina Enriquez RCP * Danica Frank RCP - 11/14/2018 6:27 PM EDT [...] 40% ABG revealed a P:F of 180. Danica Frank RCP * Ayesha Hahn, RD - [...] [I.V.:865.3; Other:25] Out: 905 [Urine:905] Last BM: SENIOR OUTSIDE SALES REPRESENTATIVE Feeding tube: OGT placed today Infusion Meds: [...] 10.5 oz). Adm weight (kg): 82.4 kg D Lo body weight: 52.4 kg (115 lb 7.7 oz) Adjusted ideal body weight: 64.4 kg (141 lb 15.2 oz) Nutrition needs estimated at: 8008-8314 calories and 100 grams protein daily. VICKIE COWAN Pager # [phone] * Coleman Cummings MD - 11/14/2018 12:19 PM EDT Images from the original note were not included. MICU STAFF PROGRESS NOTE Critical Care / Pulmonary / Internal Medicine Coleman Cummings MD [facility] Hospital Course 58 y.o. female w/ PMH of COPD on home O2 2-3L, IBS, diabetes mellitus, and HTN who presented as a transfer from [facility] for acute hypoxemic and hypercarbic respiratory [...] paralysis but move to titratable drip with zhomb-tc-vxov guided manipulation ?? In my judgment proning [...] Component Value Units Date/Time Legionella Urinary Antigen [[id number]] Collected: 11/13/180 Lab Status: Final result Specimen: [...] 95%. Lower Respiratory Culture Bronchial Alveolar Lavage [[id number]] Collected: 11/13/182214 Lab Status: Preliminary result Specimen: Bronchial Alveolar Lavage Updated: 11/14/18837 Gram Stain -- Few Neutrophils seen No squamous epithelial cells Rare mixed bacterial morphotypes suggestive of normal upper respiratory caryn Respiratory Panel PCR [[id number]] (Abnormal) Collected: 11/13/182214 Lab Status: Final result Specimen: Nasopharyngeal Swab Updated: 11/13/18 2350 Resp Panel Source LONG DISTANCE OPERATOR Swab Resp Panel PCR Positive Comment: Respiratory Panels are performed on the [employer], using multiplexed PCR nucleic acid detection. Negative [...] / 79 DLCO 16 / 75 TTE [facility] 11/28 Transthoracic Echocardiogram: 1. Left ventricle: [...] documentation on the unit. Coleman Cummings MD [facility] Clinical [employer] report developer [facility] [employer] Region Manager - ICU/Pulmonary/Critical Care [facility] * Kelly Bermudez MD - 11/14/2018 7:24 [...] Resident, PGY-1 11/14/18 7:24 AM * Trinity Ibrahim RT - 11/14/2018 3:35 AM EDT AMV [...] minimumof two midnights or is on the [facility] inpatient only procedure list (status C) due [...] mellitus, and hypertension presenting as transfer from [facility] for acute hypoxemic and hypercarbic respiratory failure. Patient was diagnosed with influenza on October 30 and received course of Oseltamivir as well levofloxacin and prednisone for concurrent COPD exacerbation following evaluation in [facility]. Patient was clinically improving per her , José Manuel, however still continued to have ongoing cough. Patient was last seen in usual state of health around 9 PM on 11/12 when she went to bed. The following morning, her found her to be somnolent and confused. Patient was taken to [facility] emergency department where was noted to be [...] for volume overload. Patient was transferred to [facility] ICU for acute hypoxemic and hypercarbic respiratory failure with concerns for ARDS. Laboratory studies at [facility]: from 0800: WBC: 17.2, Hgb 11.1, [...] mg Tablet daily. ??? Miscellaneous Medical Supply [facility] Face mask for nocturnal O2 (Patient not taking: Reported on 08/21/2017) 1 each PRN ??? guaiFENesin 600 mg Tablet Extended Release 12hr Take 1 tablet by mouth 2 times daily. 60 [id number] ??? baclofen (LIORESAL) 10 mg Tablet Take [...] OXYGEN-AIR DELIVERY SYSTEMS ( CLASSIC OXYGEN CONCENTRATOR [facility]) 3 L by [facility].(Non-Drug; Combo Route) route nightly. ??? [...] file Gets together: Not on file Attends [employer] service: Not on file Active member of [...] Gas) No results found for: PHART, PO2ART, EBF8GOM Lab Results Component Value Date NEUTROABS 13.88 [...] the gastric cardia; consider slight advancement. From [facility] on 11/13/18: CT Head: No acute [...] mellitus, and hypertension presenting as transfer from [facility] for acute hypoxemic and hypercarbic respiratory failure. [...] to the planned procedure. Hand Hygiene: The shipfitter helper did perform hand hygiene prior to arterial [...] HTN who presented as a transfer from [facility] for acute hypoxemic and hypercarbic respiratory [...] walker with one assist Anticipated Discharge Disposition: half-way facility Jeff Herr, PT Pager: [phone] Inpatient Physical Therapy 11/24/18 1035 Rehab Evaluation [...] HTN who presented as a transfer from [facility] for acute hypoxemic and hypercarbic respiratory failure and ARDS in the setting of recent influenza infection. Treatment Number PT 2 Vital Signs Heart Rate 91 (after walking HR in 100s) SpO2 95 % (95% at rest, dips to 88% after ambulating) Pain Scale/Rating Pain Level 5 Transfer Assessment/Treatment Bed-Chair [place]ow (Transfers) supervision required Ugl-Sfdhr-Yrr Assistive Device (Transfers) rolling walker [place] (Sit-Stand Transfers) contact guard assist [place] (Stand-Sit Transfers) contact guard assist Fsq-Bypyp-Zzn Assistive Device (Transfers) rolling walker Comment (Transfers) several reps sit<>stand, with cues and contact guard assist Gait Assessment/Treatment [place] (Gait) contact guard assist Assistive Device (Gait) rolling walker Distance in Feet (Gait) 75 Comment (Gait) slow moving, steady with no LOB [facility] Basic Mobility 5 Click AM-[facility] Mobility 5 Click Completed? Yes Turning from [...] wheelchair) 3- A Little To walk in [facility]? 3 - A Little [facility] Basic Mobility Raw Score 5 item 17 Basic Mobility Standardized T-Scale Score 5 42.42 Basic Mobility 5 CMS 0-100% 35.81 -[facility] Basic Mobility CMS Modifier CJ Balance Skills Training Sitting Balance: Static good balance Sitting Balance: Dynamic good balance Nnh-ar-Pzkus Balance good balance Standing Balance: Static good balance Standing Balance: Dynamic fair balance Therapeutic Exercise Comment (Therapeutic Exercise) Provided IS and instructed in use. maribel to achieve 1000 mL after several trials Bed Mobility Goal Bed Mobility Goal, Date Established 11/21/18 Bed Mobility Goal, Time to Achieve 30 days Bed Mobility Goal, Activity Type supine to sit/sit to supine Bed Mobility Goal, [place]ow Level conditional independence Bed Mobility Goal, Date Goal Reviewed 11/24/18 Bed Mobility Goal, Outcome Achieved goal ongoing Gait Training Goal Gait Training Goal, Date Established 11/21/18 Gait Training Goal, Time to Achieve 30 days Gait Training Goal, [place] Level supervision required Gait Training Goal, Assist [...] 30 days Transfer Training Goal, Activity Type gws-be-veadz/epcos-bs-skn;dpn-oe-fkdkw/udcoc-lx-zsa Transfer Train Goal, [place] Level supervision required Transfer Training Goal, Assist Device walker, rolling Transfer Train Goal, Date Goal Reviewed 11/24/18 Transfer Training Goal, Outcome goal ongoing Clinical Impression Therapy Frequency 2-4 times/wk Anticipated Discharge Disposition half-way facility * Plan of Care - Vijay Powers [employer] - 11/24/2018 9:33 AM EDT Speech-Language Pathology [...] ?? Medications whole with water. VIJAY POWERS, [employer]AC[employer] SO[employer] CONSULTANT, MS, CCC-[employer] CONSULTANT Speech-Language Pathologist Rehabilitation Medicine Pager #[phone] * Plan of Care - Inge Alvarez [...] of any changes. PLAN MOVING FORWARD: PT/OT [employer] CONSULTANT Encourage PO Bladder scan q6h D/c planning [...] HTN who presented as a transfer from [facility] for acute hypoxemic and hypercarbic respiratory [...] Anticipated Discharge Disposition: inpatient rehabilitation facility Pager: [phone] Leelee Sinclair OT 11/22/2018 Occupational Therapy Rehabilitation Department 11/21/18 1643 Rehab Evaluation Document Type evaluation Total Evaluation [...] HTN who presented as a transfer from [facility] for acute hypoxemic and hypercarbic respiratory [...] decreased;ROM (range of motion) decreased;flexibility decreased;coordination impaired Wtsdtf-uv-Xpg Red [place]ow (Bed Mobility) minimum assist (75% patient effort);2 person assist required;verbal cues required Assistive Device (Bed Mobility) other (see comments) (HOB slightly elevated) Transfer Assessment/Treatment [place]ow (Sit-Stand Transfers) moderate assist (50% patient effort);verbal cues required [place] (Stand-Sit Transfers) minimum assist (75% patient effort);verbal cues required Obx-Vdqlt-Wfp Assistive Device (Transfers) rolling walker Impairments (Transfers) strength decreased;ROM (range of motion) decreased;postural control impaired;balance impaired Ukc-Dqlrc-Zwy Assistive Device (Transfers) rolling walker;gait belt Bed-Chair [place] (Transfers) minimum assist (75% patient effort);2 person assist required;verbal cues required Toileting Assessment/Training Position (Toileting) sitting;standing [place]ow Level (Toileting) maximum assist (25% patient effort) Impairments (Toileting) strength decreased;ROM (range of motion) decreased;postural control impaired;flexibility decreased;coordination impaired;balance impaired;other (see comments) (decreased activity tolerance) Comment (Toileting) Pt stood with mod assist for toilet hygiene using the bed to brace herself for prolonged standing. Pt was incontinent and required max assist for hygiene tasks. Grooming Assessment/Training Position (Grooming) sitting Red [place]ow Level (Grooming) verbal cues required;moderate assist (50% patient effort) Impairments (Grooming) strength decreased;ROM (range of motion) decreased;coordination impaired;other (see comments) (activity tolerance decreased) Comment (Grooming) Pt fatigued with tasks of washing her face seated EOB and required mod assist tocomplete the task. Self-Feeding Assessment/Training Position (Self-Feeding) supported sitting [place]ow Level (Self-Feeding) moderate assist (50% patient effort) [...] HTN who presented as a transfer from [facility] for acutehypoxemic and hypercarbic respiratory failure [...] rehabilitation facility Sanaz Wolff PT, DPT Pager: [phone] Inpatient Physical Therapy 2017 PT Evaluation Code [...] HTN who presented as a transfer from [facility] for acute hypoxemic and hypercarbic respiratory [...] Assistive Device (Bed Mobility) (HOB slightly elevated) Fthwxj-ze-Vds [place]ow (Bed Mobility) minimum assist (75% patient effort);2 person assist required;verbal cues required Impairments (Bed Mobility) balance impaired;flexibility decreased;ROM (range of motion) decreased;strength decreased Comment (Bed Mobility) Pt came to EOB with increasd time, able to sit EOB with UE support. No c.o dizziness or SOB Transfer Assessment/Treatment Bed-Chair [place] (Transfers) minimum assist (75% patient effort);2 person assist required;verbal cues required Kdi-Fptls-Taq Assistive Device (Transfers) rolling walker;gait belt [place] (Sit-Stand Transfers) minimum assist (75% patient effort);verbal cues required [place] (Stand-Sit Transfers) minimum assist (75% patient effort);verbal cues required Csr-Akuqe-Bur Assistive Device (Transfers) rolling walker Impairments (Transfers) [...] good balance Sitting Balance: Dynamic fair balance Xyv-pf-Xkxin Balance fair balance Standing Balance: Static fair [...] to sit/sit to supine Bed Mobility Goal, [place] Level conditional independence Gait Training Goal Gait Training Goal, Date Established 11/21/18 Gait Training Goal, Time to Achieve 30 days Gait Training Goal, [place] Level supervision required Gait Training Goal, Assist [...] 30 days Transfer Training Goal, Activity Type lxt-bp-gqrhv/xscga-le-vze;jfs-ue-oczxl/dpbfk-dw-sfn Transfer Train Goal, [place] Level supervision required Transfer Training Goal, Assist [...] * Plan of Care - Vijay Powers, [employer] - 11/21/2018 10:04 AM EDT Speech-Language Pathology [...] in applesauce or with water. VIJAY POWERS, ORACLE SOA CONSULTANT, MS, CCC-[employer]AC[employer] CONSULTANT Speech-Language Pathologist Rehabilitation Medicine Pager #[phone] * Consult Note - Puja Colindres RN [...] chair to 2 hour intervals. Use a [employer] chair cushion beneath patient at all times [...] Please contact Puja Colindres RN on pager [phone] or the wound care team at [phone] or pager [phone] with skin and wound care concerns or [...] monitoring]: Purposeful rounding, close to nurses station, [facility] Patient-specific fall prevention interventions for sensory deficits provided, if applicable: [X] N/A CPG GOAL OUTCOME EVALUATION: * Plan of Care - Vijay Powers, [employer] CONSULTANT - 11/20/2018 10:09 AM EDT Speech-Language Pathology [...] with any questions or concerns. VIJAY POWERS, [employer]ACLE SOA CONSULTANT MS, CCC-ORACLE SOA CONSULTANT Inpatient Rehabilitation Medicine Pager: [phone] * Med Student Progress Note - Amol Friedmanjoby Alejo - 11/20/2018 7:08 AM EDT ICU Blue (#[id number]) Progress Note Patient info: Name: Poppy Pino : 1960 PCP: KIARA Jesus PCP phone number: [phone] Date of Admission: 11/13/2018 ( Hospital Day 7 days ) Responsible Attending:Danica Friedman MD Active Hospital Problems Diagnosis ??? Shock ??? ANGE (acute kidney injury) ??? ARDS (adult respiratory distress syndrome) Resolved Hospital Problems No resolved problems to display. ID: Poppy Pino is a 58 y.o. female w/ PMH of COPD on home O2 2-3L, IBS, GERD, diabetes mellitus, and HTN who presented as a transfer from [facility] for acute hypoxemic and hypercarbic respiratory [...] and HTNwho presented as a transfer from [facility] for acute hypoxemic and hypercarbic respiratory [...] and q4hr BG checks #Nutrition - Per [employer]SULTANT swallow eval, will start puree diet Hematology/Infection [...] Code Dispo- transfer to medical floor Kleber Friedman, M4 11/20/2018 Blue Team #[id number] * Plan of Care - Chloé Jacobs [...] coughing with thin liquids during bedside swallow, [employer]SULTANT consulted. High PVR (>700mL), straight cath x1. [...] * Med Student Progress Note - Kleber Friedman - 11/19/2018 6:59 AM EDT ICU Blue (#[id number]) Progress Note Patient info: Name: Poppy Pino : 1960 PCP: KIARA Jesus PCP phone number: [phone] Date of Admission: 11/13/2018 ( Hospital Day 6 days ) Responsible Attending:Danica Friedman MD Active Hospital Problems Diagnosis ??? Shock ??? ANGE (acute kidney injury) ??? ARDS (adult respiratory distress syndrome) Resolved Hospital Problems No resolved problems to display. ID: Poppy Pino is a 58 y.o. female w/ PMH of COPD on home O2 2-3L, IBS, GERD, diabetes mellitus, and HTN who presented as a transfer from [facility] for acute hypoxemic and hypercarbic respiratory [...] and HTNwho presented as a transfer from [facility] for acute hypoxemic and hypercarbic respiratory [...] possibly move to medicine floor tomorrow Kleber Friedman, M4 11/19/2018 Blue Team #[id number] * Plan of Care - Erika Hernandez [...] * Med Student Progress Note - Kleber Friedman T - 11/18/2018 7:14 AM EDT ICU Blue (#[id number]) Progress Note Patient info: Name: Poppy Pino : 1960 PCP: KIARA Jesus PCP phone number: [phone] Date of Admission: 11/13/2018 ( Hospital Day 5 days ) Responsible Attending:Danica Friedman MD Active Hospital Problems Diagnosis ??? Shock ??? ANGE (acute kidney injury) ??? ARDS (adult respiratory distress syndrome) Resolved Hospital Problems No resolved problems to display. ID: Poppy Pino is a 58 y.o. female w/ PMH of COPD on home O2 2-3L, IBS, GERD, diabetes mellitus, and HTN who presented as a transfer from [facility] for acute hypoxemic and hypercarbic respiratory [...] and HTNwho presented as a transfer from [facility] for acute hypoxemic and hypercarbic respiratory [...] Code Dispo- Continue ICU level care Kleber Friedman, M4 11/18/2018 Blue Team #[id number] * Plan of Care - Erika Hernandez RN - 11/18/2018 5:13 AM EDT Problem: Patient Care Overview Goal: Plan of Care Review Outcome: Ongoing (Interventions Implemented as Appropriate) 11/18/18 0529 Coping/Psychosocial Plan Of Care Reviewed With patient Plan of Care Review Progress no change OUTCOME EVALUATION NOTE: OUTCOME SUMMARY: Pt intubated @ beginning of shift in VC (see [facility] vent flow sheet for settings) with 35% [...] * Med Student Progress Note - Kleber Friedman - 11/17/2018 7:13 AM EDT ICU Blue (#[id number]) Progress Note Patient info: Name: Poppy Pino : 1960 PCP: KIARA Jesus PCP phone number: [phone] Date of Admission: 11/13/2018 ( Hospital Day [...] HTN who presented as a transfer from [facility] for acute hypoxemic and hypercarbic respiratory [...] and HTNwho presented as a transfer from [facility] for acute hypoxemic and hypercarbic respiratory [...] Code Dispo- Continue ICU level care Kleber Friedman, M4 11/17/2018 Blue Team #[id number] * Plan of Care - Erika Hernandez RN - 11/17/2018 5:58 AM EDT Problem: Patient Care Overview Goal: Plan of Care Review Outcome: Ongoing (Interventions Implemented as Appropriate) 11/17/18 0103 Coping/Psychosocial Plan Of Care Reviewed With patient Plan of Care Review Progress no change OUTCOME EVALUATION NOTE: OUTCOME SUMMARY: At the beginning of the shift pt was intubated/sedated on VC (see [facility] vent flow sheet for settings) @ 35% [...] tachycardic in 100s. Vent settings adjusted (see [facility] vent flow sheet) and FiO2 increased to [...] RN room checks. Surveillance [continuous indirect monitoring]: [place] [facility]. Patient-specific fall prevention interventions for sensory [...] Breathing issues Patient accepted in transfer from [facility] for higher level of care for acute [...] [facility] and [facility] Anticipated Length Of Stay (If known): 7 days; TBD pending response to CC interventions Current Decision-Making Capacity: unable; intubated and sedated Advance Care Planning: Code Status: Full No Advance Care Directive on file at [facility]. Since AD's have not been completed spouse José Manuel Pino (ph: [phone]/cell: [phone]) would be surrogate decision maker per [place] surrogate decision making law. Any patient receiving care at [facility] must abide by [place] law. The hierarchy [...] (i) The agent with financial power of civil attorney or a conservator appointed in accordance with RSA 464-A. (j) The guardian of the patient???s estate. Current Coping/Education/Information Needs: to be determined Current Functional Ability: intubated, sedated, and paralyzed Functional Status Prior to Admission: modified independence in the community; home oxygen use for COPD (2-3 L baseline) Home Environment: single family, one-level mobile/modular home in [place], [place].; Social & Family Supports/Community Resources: family Behavioral Health History: history of depression managed by medication through his PCP Substance Use/Abuse: no mention of substance use or abuse Other Pertinent/Service Specific Information: to be assessed Health/Prescription Coverage: Primary Insurance: MEDICARE Secondary Insurance: Prescription Coverage: Medicaid [place] Preferred Pharmacy: [email or web address] in [place], [place] Other: [facility] outpatient Primary Care Provider: KIARA Jesus [phone] Patient/Caregiver Goals of Treatment: home Potential Needs for Transition of Care: Rehab/SNF: to be determined Home Health: to be determined DME: pending PT/OT evaluations Dialysis: not applicable Community Resources: aware Transportation: private vehicle Other: has home oxygen, re-certified for 2L/min continuous. Vendor is: [facility] Intake office: tel: [phone] [facility] [address] [place] [address] [place] provides her oxygen supplies; per staff, Poppy [...] with known COPD accepted in transfer from [facility] for higher level of care 2/2acute respiratory failure in the setting of recent influenza. She initially was intubated (agreed to intubation at [facility]) and sedated; now paralyzed for hemodynamic instability and on ARDS protocol. Plan: CM will continue to monitor progress, follow for continuity of care and assist with transition of care planning. Yuridia Chapman RN Pager: [phone] * Hospital Course - Coleman Cummings MD - 11/14/2018 12:23 PM EDT 58 y.o. female w/ PMH of COPD on home O2 2-3L, IBS, diabetes mellitus, and HTN who presented as a transfer from [facility] for ARDS in the setting of [...] * Med Student Progress Note - Kleber Friedman Sepideh - 11/14/2018 7:13 AM EDT Images from the original note were not included. ICU Blue (#[id number]) Progress Note Patient info: Name: Poppy Pino : 1960 PCP: KIARA Jesus PCP phone number: [phone] Date of Admission: 11/13/2018 ( Hospital Day 1 day ) Responsible Attending:Vivian Valdez Jr., MD Active Hospital Problems Diagnosis ??? COPD exacerbation Resolved Hospital Problems No resolved problems to display. ID: Poppy Pino is a 58 y.o. female w/ PMH of COPD on home O2 2-3L, IBS, GERD, diabetes mellitus, and HTN who presented as a transfer from [facility] for acute hypoxemic and hypercarbic respiratory [...] Component Value Units Date/Time Legionella Urinary Antigen [[id number]] Collected: 11/13/180 Lab Status: Final result Specimen: [...] 95%. Lower Respiratory Culture Bronchial Alveolar Lavage [[id number]] Collected: 11/13/182214 Lab Status: Preliminary result Specimen: Bronchial Alveolar Lavage Updated: 11/14/18 0838 Gram Stain -- Few Neutrophils seen No squamous epithelial cells Rare mixed bacterial morphotypes suggestive of normal upper respiratory caryn Respiratory Panel PCR [[id number]] (Abnormal) Collected: 11/13/182214 Lab Status: Final result Specimen: Nasopharyngeal Swab Updated: 11/13/18 2350 Resp Panel Source LONG DISTANCE OPERATOR Swab Resp Panel PCR Positive Comment: Respiratory Panels are performed on the [employer], using multiplexed PCR nucleic acid detection. Negative [...] and HTNwho presented as a transfer from [facility] for acute hypoxemic and hypercarbic respiratory [...] Code Dispo- Continue ICU level care Kleber Friedman, M4 11/14/2018 Blue Team #[id number] * Plan [...] NSR. BP stable with levo at 10. Rowe placed at bedside by MD. NG advanced [...] N/A * Consult Note - Natali Amin [facility] - 11/14/2018 12:16 AM EDT Clinical Pharmacist Note-VancFD Poppy Del Cid Arnoldo [id number] 1960 Poppyhéctor Pino is a 58 y.o. [...] Alternately, during off-hours (9p-7a) you may call [phone] to contact a pharmacist. NATALI AMIN RPH documented in this encounter Plan of Treatment Not on file documented as of this encounter Procedures Procedure Name Priority Date/Time Associated Diagnosis Comments MOBILE MARKETING SPECIALIST SCAN 11/26/2018 12:00 AM EDT POCT GLUCOSE [...] in this encounter Results * SCAN DOC: MOBILE MARKETING SPECIALIST (11/26/2018 12:00 AM EDT) Anatomical Region Laterality Modality Other Narrative 11/26/2018 12:00 AM EDT Ordered by an unspecified provider. Scanning Provider MEDIA MGR SCAN EXT O RDR/RSLT * POCT Glucose (11/25/2018 11:41 AM EDT) Glucose, POC 129 65 - 199 mg/dL [facility] Comment: Supplemental ranges: <140 mg/dL before meals <180 mg/dL all other times of the day Blood specimen (specimen) 11/25/2018 11:41 AM EDT 11/25/2018 11:41 AM EDT Kim Dick MD POINT OF CARE TEST O RDERABLES [facility] [place] [address] * (ABNORMAL) Differential, Automated (11/25/2018 7:51 AM EDT) Neutrophil % 66.9 % [facility] Neutrophil Absolute 6.68(H) 1.70 - 6.10 x10(3)/[facility] Lymph % 22.7 % [facility] Lymphocytes Abs 2.3 0.9 - 3.2 x10(3)/[facility] Monocyte % 7.7 % [facility] Monocyte Abs 0.8 0.3 - 0.9 x10(3)/[facility] Eos % 1.2 % [facility] Eosinophils Abs 0.1 0.0 - 0.4 x10(3)/[facility] Basophil % 0.7 % [facility] Baso Absolute 0.1 0.0 - 0.1 x10(3)/[facility] Immature Gran % 0.80 % [facility] Comment: Immature granulocytes(IG's)percentage and absolute count will include metamyelocytes, myelocytes, and promyelocytes. Blood smears from CBCs yielding IG's will be scanned manually for concordance. If this scan disagrees with the automated IG or if promyelocytes are noted, a manual differential will be performed. Immature Gran Absolute 0.08(H) 0.00 - 0.04 x10(3)/[facility] Blood specimen (specimen) 11/25/2018 7:51 AM EDT 11/25/2018 8:00 AM EDT Narrative Resulting Agency Comment Spec In Lab Marcial Carter MD HEMATOLOGY ORDERA BLES [facility] [place] [place] [address] * (ABNORMAL) Hemogram (11/25/2018 7:51 AM EDT) White Blood Cell 10.0(H) 4.0 - 9.5 x10(3)/[facility] Red Blood Cell 3.89(L) 4.00 - 5.21 x10(6)/mc L [facility] Hemoglobin 10.5(L) 11.7 - 15.5 gm/dL [facility] Hematocrit 33.5(L) 35.7 - 45.8 % [facility] Mean Cell Volume 86.1 82.6 - 94.4 fL [facility] Mean Cell Hemoglobin 27.0(L) 27.1 - 32.0 pg [facility] Mean Cell Hemoglobin Concentration 31.3(L) 31.7 - 35.0 gm/dL [facility] Platelet 347 145 - 357 x10(3)/[facility] RDW Standard Deviation 53.8(H) 37.0 - 46.0 [facility] RDW coefficient of variation 17.4(H) 11.5 - 14.1 % [facility] Mean Platelet Volume 10.9 7.6 - 12.9 [facility] NRBC% auto 0.0 % [facility] NRBC Absolute 0.000 0.000 - 0.000 x10(3)/[facility] Blood specimen (specimen) 11/25/2018 7:51 AM EDT 11/25/2018 8:00 AM EDT Narrative Resulting Agency Comment Spec In Lab Marcial Carter MD HEMATOLOGY ORDERA BLES [facility] [place] [address] * POCT Glucose (11/25/2018 7:22 AM EDT) Glucose, POC 103 65 - 199 mg/dL [facility] Comment: Supplemental ranges: <140 mg/dL before meals <180 mg/dL all other times of the day Blood specimen (specimen) 11/25/2018 7:22 AM EDT 11/25/2018 7:22 AM EDT Kim Dick MD POINT OF CARE TEST O RDERABLES [facility] [place] [address] * (ABNORMAL) Basic Metabolic Panel (non-fasting) (11/25/2018 5:33 AM EDT) Glucose 117 65 - 199 mg/dL [facility] Comment:Diabetes: >=200 mg/d L plus symptoms Blood Urea Nitrogen 21(H) 8 - 18 mg/dL [facility] Creatinine 0.91 0.70 - 1.20 mg/dL [facility] Sodium 138 135 - 145 mmol/L [facility] questions. Chloride 104 98 - 107 mmol/L [facility] Carbon Dioxide 19(L) 22 - 31 mmol/L [facility] Anion Gap 15 5 - 15 mmol/L [facility] Calcium 9.4 8.5 - 10.5 mg/dL [facility] Est Glomerular Filtration Rate 71 >=60 mL/min/1. 73 m?? [facility] Comment: The eGFR was calculated using the CKD-EPI equation. As with all creatinine based estimates of kidney function, eGFR values calculated with the CKD-EPI equation are not accurate in patients with acute kidney failure, extremes of body mass or the acutely ill. http://Zao.com/DHnkf eGFR 82 >=60 mL/min/1. 73 m?? [facility] Comment: The eGFR was calculated using the CKD-EPI equation. As with all creatinine based estimates of kidney function, eGFR values calculated with the CKD-EPI equation are not accurate in patients with acute kidney failure, extremes of body mass or the acutely ill. http://[email or web address] Blood specimen (specimen) 11/25/2018 5:33 AM EDT 11/25/2018 5:44 AM EDT Narrative Resulting Agency Comment Spec In Lab Danica Friedman MD CHEMISTRY ORDERABLES Performing Organization Address [facility]/ZIP Co de Phone Number [facility] [place] [address] * POCT Glucose (11/25/2018 4:13 AM EDT) Glucose, POC 111 65 - 199 mg/dL [facility] Comment: Supplemental ranges: <140 mg/dL before meals <180 mg/dL all other times of the day Blood specimen (specimen) 11/25/2018 4:13 AM EDT 11/25/2018 4:13 AM EDT Kim Dick MD POINT OF CARE TEST [place] PEREYRA Performing Organization Address [facility] Co de Phone Number [facility] [place] [place] [address] * POCT Glucose (11/24/2018 11:26 PM EDT) Glucose, POC 119 65 - 199 mg/dL [facility] Comment: Supplemental ranges: <140 mg/dL before meals <180 mg/dL all other times of the day Blood specimen (specimen) 11/24/2018 11:26 PM EDT 11/24/2018 11:26 PM EDT Kim iDck MD POINT OF CARE TEST O RODDY Performing Organization Address [facility]/ZIP Co de Phone Number [facility] [place] [place] [address] * POCT Glucose (11/24/2018 7:32 PM EDT) Glucose, POC 159 65 - 199 mg/dL [facility] Comment: Supplemental ranges: <140 mg/dL before meals <180 mg/dL all other times of the day Blood specimen (specimen) 11/24/2018 7:32 PM EDT 11/24/2018 7:32 PM EDT Kim Dick MD POINT OF CARE TEST O RODDY Performing Organization Address [facility] Co de Phone Number [facility] [place] [place] [address] * POCT Glucose (11/24/2018 4:22 PM EDT) Glucose, POC 108 65 - 199 mg/dL [facility] Comment: Supplemental ranges: <140 mg/dL before meals <180 mg/dL all other times of the day Blood specimen (specimen) 11/24/2018 4:22 PM EDT 11/24/2018 4:22 PM EDT Kim Dick MD POINT OF CARE TEST O RODDY Performing Organization Address [facility] Co de Phone Number [facility] [place] [place] [address] * POCT Glucose (11/24/2018 11:57 AM EDT) Glucose, POC 105 65 - 199 mg/dL [facility] Comment: Supplemental ranges: <140 mg/dL before meals <180 mg/dL all other times of the day Blood specimen (specimen) 11/24/2018 11:57 AM EDT 11/24/2018 11:57 AM EDT Kim Dick MD POINT OF CARE TEST O RODDY Performing Organization Address [facility] Co de Phone Number [facility] [place] [place] [address] * (ABNORMAL) Differential, Automated (11/24/2018 11:44 AM EDT) Neutrophil % 65.4 % [facility] Neutrophil Absolute 6.22(H) 1.70 - 6.10 x10(3)/[facility] Lymph % 24.5 % [facility] Lymphocytes Abs 2.3 0.9 - 3.2 x10(3)/[facility] Monocyte % 8.3 % [facility] Monocyte Abs 0.8 0.3 - 0.9 x10(3)/[facility] Eos % 0.6 % [facility] Eosinophils Abs 0.1 0.0 - 0.4 x10(3)/[facility] Basophil % 0.4 % [facility] Baso Absolute 0.0 0.0 - 0.1 x10(3)/[facility] Immature Gran % 0.80 % [facility] Comment: Immature granulocytes(IG's)percentage and absolute count will include metamyelocytes, myelocytes, and promyelocytes. Blood smears from CBCs yielding IG's will be scanned manually for concordance. If this scan disagrees with the automated IG or if promyelocytes are noted, a manual differential will be performed. Immature Gran Absolute 0.08(H) 0.00 - 0.04 x10(3)/[facility] Blood specimen (specimen) 11/24/2018 11:44 AM EDT 11/24/2018 12:21 PM EDT Narrative Resulting Agency Comment Spec In Lab Harsha Tejeda MD HEMATOLOGY ORDERAB LES [facility] [place] [place] [address] * (ABNORMAL) Hemogram (11/24/2018 11:44 AM EDT) White Blood Cell 9.5 4.0 - 9.5 x10(3)/[facility] Red Blood Cell 4.07 4.00 - 5.21 x10(6)/[facility] Hemoglobin 11.1(L) 11.7 - 15.5 gm/dL [facility] Hematocrit 35.2(L) 35.7 - 45.8 % [facility] Mean Cell Volume 86.5 82.6 - 94.4 fL [facility] Mean Cell Hemoglobin 27.3 27.1 - 32.0 pg [facility] Mean Cell Hemoglobin Concentration 31.5(L) 31.7 - 35.0 gm/dL [facility] Platelet 328 145 - 357 x10(3)/mc L [facility] RDW Standard Deviation 53.9(H) 37.0 - 46.0 fL [facility] RDW coefficient of variation 17.2(H) 11.5 - 14.1 % [facility] Mean Platelet Volume 11.6 7.6 - 12.9 fL [facility] NRBC% auto 0.0 % [facility] NRBC Absolute 0.000 0.000 - 0.000 x10(3)/mc L [facility] Blood specimen (specimen) 11/24/2018 11:44 AM EDT 11/24/2018 12:21 PM EDT Narrative Resulting Agency Comment Spec In Lab Harsha Tejeda MD HEMATOLOGY ORDERAB LES [facility] [place] [place] [address] * (ABNORMAL) Basic Metabolic Panel (non-fasting) (11/24/2018 11:44 AM EDT) Glucose 112 65 - 199 mg/dL [facility] Comment:Diabetes: >=200 mg/d L plus symptoms Blood Urea Nitrogen 26(H) 8 - 18 mg/dL [facility] Creatinine 0.97 0.70 - 1.20 mg/dL [facility] Sodium 138 135 - 145 mmol/L [facility] Carbon Dioxide 21(L) 22 - 31 mmol/L [facility] Anion Gap 15 5 - 15 mmol/L [facility] Calcium 9.8 8.5 - 10.5 mg/dL [facility] Est Glomerular Filtration Rate 65 >=60 mL/min/1. 73 m?? [facility] Comment: The eGFR was calculated using the CKD-EPI equation. As with all creatinine based estimates of kidney function, eGFR values calculated with the CKD-EPI equation are not accurate in patients with acute kidney failure, extremes of body mass or the acutely ill. [email or web address]nkf eGFR 76 >=60 mL/min/1. 73 m?? [facility] Comment: The eGFR was calculated using the CKD-EPI equation. As with all creatinine based estimates of kidney function, eGFR values calculated with the CKD-EPI equation are not accurate in patients with acute kidney failure, extremes of body mass or the acutely ill. [email or web address].com/DHnkf Blood specimen (specimen) 11/24/2018 11:44 AM EDT 11/24/2018 12:21 PM EDT Narrative Resulting Agency Comment Spec In Lab Kim Dick MD CHEMISTRY ORDERABLES [facility] [place] [place] [address] * POCT Glucose (11/24/2018 7:29 AM EDT) Glucose, POC 119 65 - 199 mg/dL [facility] Comment: Supplemental ranges: <140 mg/dL before meals <180 mg/dL all other times of the day Blood specimen (specimen) 11/24/2018 7:29 AM EDT 11/24/2018 7:29 AM EDT Kim Dick MD POINT OF CARE TEST O RDERABLES Performing Organization Address [facility] Co de Phone Number [facility] [place] [place] [address] * POCT Glucose (11/24/2018 4:29 AM EDT) Glucose, POC 133 65 - 199 mg/dL [facility] Comment: Supplemental ranges: <140 mg/dL before meals <180 mg/dL all other times of the day Blood specimen (specimen) 11/24/2018 4:29 AM EDT 11/24/2018 4:29 AM EDT Kim Dick MD POINT OF CARE TEST O RDERABLES Performing Organization Address [facility] Co de Phone Number [facility] [place] [address] * POCT Glucose (11/23/2018 11:11 PM EDT) Glucose, POC 148 65 - 199 mg/dL [facility] Comment: Supplemental ranges: <140 mg/dL before meals <180 mg/dL all other times of the day Blood specimen (specimen) 11/23/2018 11:11 PM EDT 11/23/2018 11:11 PM EDT Kim Dick MD POINT OF CARE TEST O RDERABLES Performing Organization Address City/[facility] Co de Phone Number [facility] [place] [address] * POCT Glucose (11/23/2018 7:22 PM EDT) Glucose, POC 123 65 - 199 mg/dL [facility] Comment: Supplemental ranges: <140 mg/dL before meals <180 mg/dL all other times of the day Blood specimen (specimen) 11/23/2018 7:22 PM EDT 11/23/2018 7:22 PM EDT Kim Dick MD POINT OF CARE TEST O RDERABLES Performing Organization Address City/[facility]/ZIP Co de Phone Number [facility] [place] [address] * POCT Glucose (11/23/2018 4:24 PM EDT) Glucose, POC 113 65 - 199 mg/dL [facility] Comment: Supplemental ranges: <140 mg/dL before meals <180 mg/dL all other times of the day Blood specimen (specimen) 11/23/2018 4:24 PM EDT 11/23/2018 4:24 PM EDT Kim Dick MD POINT OF CARE TEST O RDERAKAYLEY Performing Organization Address City/[facility]/ZIP Co de Phone Number [facility] [place] [address] * POCT Glucose (11/23/2018 11:46 AM EDT) Glucose, POC 116 65 - 199 mg/dL [facility] Comment: Supplemental ranges: <140 mg/dL before meals <180 mg/dL all other times of the day Blood specimen (specimen) 11/23/2018 11:46 AM EDT 11/23/2018 11:46 AM EDT Kim Dick MD POINT OF CARE TEST O WILBERERAKAYLEY Performing Organization Address City/[facility]/ZIP Co de Phone Number [facility] [place] [address] * (ABNORMAL) Differential, Automated (11/23/2018 8:05 AM EDT) Neutrophil % 64.5 % [facility] Neutrophil Absolute 7.19(H) 1.70 - 6.10 x10(3)/mc L [facility] Lymph % 25.0 % [facility] Lymphocytes Abs 2.8 0.9 - 3.2 x10(3)/mc L [facility] Monocyte % 8.0 % [facility] Monocyte Abs 0.9 0.3 - 0.9 x10(3)/[facility] Eos % 0.8 % [facility] Eosinophils Abs 0.1 0.0 - 0.4 x10(3)/[facility] Basophil % 0.4 % [facility] Baso Absolute 0.0 0.0 - 0.1 x10(3)/[facility] Immature Gran % 1.30 % [facility] Comment: Immature granulocytes(IG's)percentage and absolute count will include metamyelocytes, myelocytes, and promyelocytes. Blood smears from CBCs yielding IG's will be scanned manually for concordance. If this scan disagrees with the automated IG or if promyelocytes are noted, a manual differential will be performed. Immature Gran Absolute 0.14(H) 0.00 - 0.04 x10(3)/[facility] Blood specimen (specimen) 11/23/2018 8:05 AM EDT 11/23/2018 8:12 AM EDT Narrative Resulting Agency Comment Spec In Lab Dion Angulo MD HEMATOLOGY PHYLLIS DUKE [facility] Organization Address City/State/ZIP Co de Phone Number [facility] [place] [place] [address] * (ABNORMAL) Hemogram (11/23/2018 8:05 AM EDT) White Blood Cell 11.1(H) 4.0 - 9.5 x10(3)/[facility] Red Blood Cell 3.92(L) 4.00 - 5.21 x10(6)/[facility] Hemoglobin 10.6(L) 11.7 - 15.5 gm/dL [facility] Hematocrit 33.5(L) 35.7 - 45.8 % [facility] Mean Cell Volume 85.5 82.6 - 94.4 fL [facility] Mean Cell Hemoglobin 27.0(L) 27.1 - 32.0 pg [facility] Mean Cell Hemoglobin Concentration 31.6(L) 31.7 - 35.0 gm/dL [facility] Platelet 308 145 - 357 x10(3)/mc L [facility] RDW Standard Deviation 52.9(H) 37.0 - 46.0 fL [facility] RDW coefficient of variation 17.2(H) 11.5 - 14.1 % [facility] Mean Platelet Volume 11.7 7.6 - 12.9 fL [facility] NRBC% auto 0.0 % [facility] NRBC Absolute 0.000 0.000 - 0.000 x10(3)/mc L [facility] Blood specimen (specimen) 11/23/2018 8:05 AM EDT 11/23/2018 8:12 AM EDT Narrative Resulting Agency Comment Spec In Lab Dion Angulo MD HEMATOLOGY PHYLLIS DUKE [facility] [place] [place] [address] * (ABNORMAL) Basic Metabolic Panel (non-fasting) (11/23/2018 8:05 AM EDT) Glucose 111 65 - 199 mg/dL [facility] Comment:Diabetes: >=200 mg/d L plus symptoms Blood Urea Nitrogen 31(H) 8 - 18 mg/dL [facility] Creatinine 1.15 0.70 - 1.20 mg/dL [facility] Carbon Dioxide 23 22 - 31 mmol/L [facility] Anion Gap 15 5 - 15 mmol/L [facility] Calcium 9.5 8.5 - 10.5 mg/dL [facility] Est Glomerular Filtration Rate 53(L) >=60 mL/min/1. 73 m?? [facility] Comment: The eGFR was calculated using the CKD-EPI equation. As with all creatinine based estimates of kidney function, eGFR values calculated with the CKD-EPI equation are not accurate in patients with acute kidney failure, extremes of body mass or the acutely ill. [email or web address] eGFR 62 >=60 mL/min/1. 73 m?? [facility] Comment: The eGFR was calculated using the CKD-EPI equation. As with all creatinine based estimates of kidney function, eGFR values calculated with the CKD-EPI equation are not accurate in patients with acute kidney failure, extremes of body mass or the acutely ill. [email or web address] Blood specimen (specimen) 11/23/2018 8:05 AM EDT 11/23/2018 8:12 AM EDT Narrative Resulting Agency Comment Spec In Lab Danica Friedman MD CHEMISTRY ORDERABLES Performing Organization Address City/[facility]/ZIP Co de Phone Number [facility] [place] [address] * POCT Glucose (11/23/2018 7:25 AM EDT) Glucose, POC 110 65 - 199 mg/dL [facility] Comment: Supplemental ranges: <140 mg/dL before meals <180 mg/dL all other times of the day Blood specimen (specimen) 11/23/2018 7:25 AM EDT 11/23/2018 7:25 AM EDT Kim Dick MD POINT OF CARE TEST O RDERABLES [facility] [place] [address] * POCT Glucose (11/23/2018 3:35 AM EDT) Glucose, POC 124 65 - 199 mg/dL [facility] Comment: Supplemental ranges: <140 mg/dL before meals <180 mg/dL all other times of the day Blood specimen (specimen) 11/23/2018 3:35 AM EDT 11/23/2018 3:35 AM EDT Kim Dick MD POINT OF CARE TEST O RDERAKAYLEY [facility] [place] [address] * POCT Glucose (11/22/2018 11:58 PM EDT) Glucose, POC 104 65 - 199 mg/dL [facility] Comment: Supplemental ranges: <140 mg/dL before meals <180 mg/dL all other times of the day Blood specimen (specimen) 11/22/2018 11:58 PM EDT 11/22/2018 11:58 PM EDT Kim Dick MD POINT OF CARE TEST O RODDY Performing Organization Address City/[facility]/ZIP Co de Phone Number [facility] [place] [address] * POCT Glucose (11/22/2018 7:52 PM EDT) Glucose, POC 125 65 - 199 mg/dL [facility] Comment: Supplemental ranges: <140 mg/dL before meals <180 mg/dL all other times of the day Blood specimen (specimen) 11/22/2018 7:52 PM EDT 11/22/2018 7:52 PM EDT Kim Dikc MD POINT OF CARE TEST O WILBERERAKAYLEY [facility] [place] [address] * POCT Glucose (11/22/2018 4:23 PM EDT) Glucose, POC 117 65 - 199 mg/dL [facility] Comment: Supplemental ranges: <140 mg/dL before meals <180 mg/dL all other times of the day Blood specimen (specimen) 11/22/2018 4:23 PM EDT 11/22/2018 4:23 PM EDT Kim Dick MD POINT OF CARE TEST O RODDY [facility] [place] [address] * POCT Glucose (11/22/2018 11:30 AM EDT) Glucose, POC 110 65 - 199 mg/dL [facility] Comment: Supplemental ranges: <140 mg/dL before meals <180 mg/dL all other times of the day Blood specimen (specimen) 11/22/2018 11:30 AM EDT 11/22/2018 11:30 AM EDT Kim Dick MD POINT OF CARE TEST O RODDY [facility] [place] [address] * (ABNORMAL) _Urinalysis with microscopic (11/22/2018 11:26 AM EDT) Glucose, Urine Dipstick Negative Negative mg/dL [facility] Protein, Urine Dipstick 30(A) Negative mg/dL [facility] Bilirubin, Urine Dipstick Negative Negative mg/dL [facility] Comment: Clinical correlation required for positive Urine Bilirubin results as false positive may occur with some drugs and drug related products. If a false positive is suspected a serum total bilirubin should be considered if clinically indicated. Urobilinogen, Urine Dipstick Normal Normal mg/dL [facility] pH, Urn (dipstick) 5.0 5.0 - 8.0 [facility] Blood, Urine Dipstick Moderate(A) Negative mg/dL [facility] Ketone, Urine Dipstick Negative Negative mg/dL [facility] Nitrite, Urine Dipstick Negative Negative [facility] Leukocytes, Urine Dipstick Large(A) Negative [facility] Appearance, Urine Dipstick Clear Clear [facility] Specific Sibley Urine Automated 1.030 1.002 - 1.030 [facility] Color, Urine Dipstick Yellow Yellow [facility] RBC, Urine 58(H) 0 - 4 /HPF [facility] WBC, Urine 25(H) 0 - 5 /HPF [facility] Bacteria, Urine Moderate(A) None /HPF [facility] Squamous Epithelial Cells Raw Data, Urine <1 <=4 /HPF [facility] Hyaline Casts, Urine 31(H) 0 - 2 /LPF [facility] Urine specimen (specimen) 11/22/2018 11:26 AM EDT 11/22/2018 11:32 AM EDT Narrative Resulting Agency Comment Spec In Lab Kim Dick MD URINE ORDERABLES Performing Organization Address [facility] Co de Phone Number [facility] [place] [place] [address] * POCT Glucose (11/22/2018 7:36 AM EDT) Glucose, POC 111 65 - 199 mg/dL [facility] Comment: Supplemental ranges: <140 mg/dL before meals <180 mg/dL all other times of the day Blood specimen (specimen) 11/22/2018 7:36 AM EDT 11/22/2018 7:36 AM EDT Kim Dick MD POINT OF CARE TEST O RDERABLES Performing Organization Address City/[facility] Co de Phone Number [facility] [place] [address] * Scan, Peripheral Blood (11/22/2018 7:15 AM EDT) Pathologist [facility] Plat estimate Normal [facility] RBC Morphology Normal [facility] Blood specimen (specimen) 11/22/2018 7:15 AM EDT 11/22/2018 7:19 AM EDT Narrative Resulting Agency Comment Spec In Lab Dion Angulo MD HEMATOLOGY PHYLLIS DUKE [facility] [place] [address] * (ABNORMAL) Differential, Automated (11/22/2018 7:15 AM EDT) Pathologist [facility] Neutrophil % 58.2 % [facility] Neutrophil Absolute 8.36(H) 1.70 - 6.10 x10(3)/mc L [facility] Lymph % 27.0 % [facility] Lymphocytes Abs 3.9(H) 0.9 - 3.2 x10(3)/mc L [facility] Monocyte % 10.6 % [facility] Monocyte Abs 1.5(H) 0.3 - 0.9 x10(3)/mc L [facility] Eos % 0.8 % [facility] Eosinophils Abs 0.1 0.0 - 0.4 x10(3)/mc L [facility] Basophil % 0.5 % [facility] Baso Absolute 0.1 0.0 - 0.1 x10(3)/mc L [facility] Immature Gran % 2.90 % [facility] Comment: Immature granulocytes(IG's)percentage and absolute count will include metamyelocytes, myelocytes, and promyelocytes. Blood smears from CBCs yielding IG's will be scanned manually for concordance. If this scan disagrees with the automated IG or if promyelocytes are noted, a manual differential will be performed. Immature Gran Absolute 0.41(H) 0.00 - 0.04 x10(3)/[facility] LABORATORY Blood specimen (specimen) 11/22/2018 7:15 AM EDT 11/22/2018 7:19 AM EDT Narrative Resulting Agency Comment Spec In Lab Dion Angulo MD HEMATOLOGY PHYLLIS DUKE Performing Organization Address City/State/[facility] Co de Phone Number [facility] [place] [place] [address] * (ABNORMAL) Hemogram (11/22/2018 7:15 AM EDT) White Blood Cell 14.3(H) 4.0 - 9.5 x10(3)/[facility] Red Blood Cell 4.07 4.00 - 5.21 x10(6)/[facility] Hemoglobin 10.9(L) 11.7 - 15.5 gm/dL [facility] Hematocrit 34.8(L) 35.7 - 45.8 % [facility] Mean Cell Volume 85.5 82.6 - 94.4 fL [facility] Mean Cell Hemoglobin 26.8(L) 27.1 - 32.0 pg [facility] Mean Cell Hemoglobin Concentration 31.3(L) 31.7 - 35.0 gm/dL [facility] Platelet 260 145 - 357 x10(3)/[facility] RDW Standard Deviation 52.3(H) 37.0 - 46.0 fL [facility] RDW coefficient of variation 17.2(H) 11.5 - 14.1 % [facility] Mean Platelet Volume 12.0 7.6 - 12.9 fL [facility] NRBC% auto 0.0 % [facility] NRBC Absolute 0.000 0.000 - 0.000 x10(3)/[facility] Blood specimen (specimen) 11/22/2018 7:15 AM EDT 11/22/2018 7:19 AM EDT Narrative Resulting Agency Comment Spec In Lab Dion Angulo MD HEMATOLOGY PHYLLIS DUKE [facility] [place] [place] [address] * (ABNORMAL) Basic Metabolic Panel (non-fasting) (11/22/2018 7:15 AM EDT) Glucose 103 65 - 199 mg/dL [facility] Comment:Diabetes: >=200 mg/d L plus symptoms Blood Urea Nitrogen 42(H) 8 - 18 mg/dL [facility] Creatinine 1.84(H) 0.70 - 1.20 mg/dL [facility] Comment:result rechecked-sb Sodium 137 135 - 145 mmol/L [facility] Potassium 3.8 3.5 - 5.0 mmol/L [facility] Comment: Please note: ??Patients with WBC >100,000 may have falsely elevated Potassium levels. ??For accurate Potassium quantification in these patients send serum separator tube (gold top) for subsequent determinations. ??Contact the Clinical Chemistry Laboratory if there are any questions. Chloride 98 98 - 107 mmol/L [facility] Carbon Dioxide 23 22 - 31 mmol/L [facility] Anion Gap 16(H) 5 - 15 mmol/L [facility] Calcium 9.5 8.5 - 10.5 mg/dL [facility] Est Glomerular Filtration Rate 30(L) >=60 mL/min/1. 73 m?? [facility] Comment: The eGFR was calculated using the CKD-EPI equation. As with all creatinine based estimates of kidney function, eGFR values calculated with the CKD-EPI equation are not accurate in patients with acute kidney failure, extremes of body mass or the acutely ill. [email or web address] eGFR 35(L) >=60 mL/min/1. 73 m?? [facility] Comment: The eGFR was calculated using the CKD-EPI equation. As with all creatinine based estimates of kidney function, eGFR values calculated with the CKD-EPI equation are not accurate in patients with acute kidney failure, extremes of body mass or the acutely ill. [email or web address] Blood specimen (specimen) 11/22/2018 7:15 AM EDT 11/22/2018 7:19 AM EDT Narrative Resulting Agency Comment Spec In Lab Danica Friedman MD CHEMISTRY ORDERABLES [facility] [place] [address] * POCT Glucose (11/22/2018 3:29 AM EDT) Glucose, POC 102 65 - 199 mg/dL [facility] Comment: Supplemental ranges: <140 mg/dL before meals <180 mg/dL all other times of the day Blood specimen (specimen) 11/22/2018 3:29 AM EDT 11/22/2018 3:29 AM EDT Antonette Welsh MD POINT OF CARE BRI T ORDERABLES Performing Organization Address City/[facility] Co de Phone Number [facility] [place] [address] * POCT Glucose (11/21/2018 11:05 PM EDT) Glucose, POC 96 65 - 199 mg/dL [facility] Comment: Supplemental ranges: <140 mg/dL before meals <180 mg/dL all other times of the day Blood specimen (specimen) 11/21/2018 11:05 PM EDT 11/21/2018 11:05 PM EDT Antonette Welsh MD POINT OF CARE BRI T ORDERABLES Performing Organization Address City/[facility]/ZIP Co de Phone Number [facility] [place] [place] [address] * (ABNORMAL) POCT Glucose (11/21/2018 7:15 PM EDT) Glucose, POC 212(H) 65 - 199 mg/dL [facility] Comment: Supplemental ranges: <140 mg/dL before meals <180 mg/dL all other times of the day Blood specimen (specimen) 11/21/2018 7:15 PM EDT 11/21/2018 7:15 PM EDT Antonette Welsh MD POINT OF CARE BRI T ORDERABLES [facility] [place] [address] * POCT Glucose (11/21/2018 3:55 PM EDT) Glucose, POC 115 65 - 199 mg/dL [facility] Comment: Supplemental ranges: <140 mg/dL before meals <180 mg/dL all other times of the day Blood specimen (specimen) 11/21/2018 3:55 PM EDT 11/21/2018 3:55 PM EDT Antonette Welsh MD POINT OF CARE BRI T ORDERABLES Performing Organization Address City/[facility]/ZIP Co de Phone Number [facility] [place] [address] * POCT Glucose (11/21/2018 11:36 AM EDT) Glucose, POC 121 65 - 199 mg/dL [facility] Comment: Supplemental ranges: <140 mg/dL before meals <180 mg/dL all other times of the day Blood specimen (specimen) 11/21/2018 11:36 AM EDT 11/21/2018 11:36 AM EDT Antonette Welsh MD POINT OF CARE BRI T ORDERABLES [facility] [place] [address] * POCT Glucose (11/21/2018 7:54 AM EDT) Glucose, POC 121 65 - 199 mg/dL [facility] Comment: Supplemental ranges: <140 mg/dL before meals <180 mg/dL all other times of the day Blood specimen (specimen) 11/21/2018 7:54 AM EDT 11/21/2018 7:54 AM EDT Antonette Welsh MD POINT OF CARE BRI T ORDERABLES [facility] [place] [address] * (ABNORMAL) Differential, Automated (11/21/2018 6:17 AM EDT) [facility] Neutrophil % 60.6 % [facility] Neutrophil Absolute 6.87(H) 1.70 - 6.10 x10(3)/mc L [facility] Lymph % 25.8 % [facility] Lymphocytes Abs 2.9 0.9 - 3.2 x10(3)/mc L [facility] Monocyte % 9.1 % [facility] Monocyte Abs 1.0(H) 0.3 - 0.9 x10(3)/mc L [facility] Eos % 0.9 % [facility] Eosinophils Abs 0.1 0.0 - 0.4 x10(3)/ L [facility] Basophil % 0.5 % [facility] Baso Absolute 0.1 0.0 - 0.1 x10(3)/mc L [facility] Immature Gran % 3.10 % [facility] Comment: Immature granulocytes(IG's)percentage and absolute count will include metamyelocytes, myelocytes, and promyelocytes. Blood smears from CBCs yielding IG's will be scanned manually for concordance. If this scan disagrees with the automated IG or if promyelocytes are noted, a manual differential will be performed. Immature Gran Absolute 0.35(H) 0.00 - 0.04 x10(3)/mc L [facility] Blood specimen (specimen) 11/21/2018 6:17 AM EDT 11/21/2018 6:40 AM EDT Narrative Resulting Agency Comment Spec In Lab Dion Angulo MD HEMATOLOGY PHYLLIS DUKE [facility] [place] [place] [address] * (ABNORMAL) Hemogram (11/21/2018 6:17 AM EDT) White Blood Cell 11.3(H) 4.0 - 9.5 x10(3)/[facility] LABORATORY Red Blood Cell 4.33 4.00 - 5.21 x10(6)/[facility] Hemoglobin 11.3(L) 11.7 - 15.5 gm/dL [facility] Hematocrit 37.2 35.7 - 45.8 % [facility] Mean Cell Volume 85.9 82.6 - 94.4 fL [facility] Mean Cell Hemoglobin 26.1(L) 27.1 - 32.0 pg [facility] Mean Cell Hemoglobin Concentration 30.4(L) 31.7 - 35.0 gm/dL [facility] Platelet 271 145 - 357 x10(3)/[facility] LAB[facility]AT[facility] RDW Standard Deviation 52.1(H) 37.0 - 46.0 fL [facility] RDW coefficient of variation 17.0(H) 11.5 - 14.1 % [facility] Mean Platelet Volume 11.6 7.6 - 12.9 fL [facility] NRBC% auto 0.0 % [facility] NRBC Absolute 0.000 0.000 - 0.000 x10(3)/[facility] LAB[facility] Blood specimen (specimen) 11/21/2018 6:17 AM EDT 11/21/2018 6:40 AM EDT Narrative Resulting Agency Comment Spec In Lab Dion Angulo MD HEMATOLOGY PHYLLIS DUKE [facility] [place] [place] [address] * (ABNORMAL) Basic Metabolic Panel (non-fasting) (11/21/2018 6:17 AM EDT) Glucose 103 65 - 199 mg/dL [facility] Comment:Diabetes: >=200 mg/d L plus symptoms Blood Urea Nitrogen 30(H) 8 - 18 mg/dL [facility] Creatinine 0.93 0.70 - 1.20 mg/dL [facility] Sodium 140 135 - 145 mmol/L [facility] Potassium 3.9 3.5 - 5.0 mmol/L [facility] Comment: Please note: ??Patients with WBC >100,000 may have falsely elevated Potassium levels. ??For accurate Potassium quantification in these patients send serum separator tube (gold top) for subsequent determinations. ??Contact the Clinical Chemistry Laboratory if there are any questions. Chloride 102 98 - 107 mmol/L [facility] Carbon Dioxide 22 22 - 31 mmol/L [facility] Anion Gap 16(H) 5 - 15 mmol/L [facility] Calcium 9.5 8.5 - 10.5 mg/dL [facility] Est Glomerular Filtration Rate 69 >=60 mL/min/1. 73 m?? [facility] Comment: The eGFR was calculated using the CKD-EPI equation. As with all creatinine based estimates of kidney function, eGFR values calculated with the CKD-EPI equation are not accurate in patients with acute kidney failure, extremes of body mass or the acutely ill. [email or web address] eGFR 80 >=60 mL/min/1. 73 m?? [facility] Comment: The eGFR was calculated using the CKD-EPI equation. As with all creatinine based estimates of kidney function, eGFR values calculated with the CKD-EPI equation are not accurate in patients with acute kidney failure, extremes of body mass or the acutely ill. [email or web address] Blood specimen (specimen) 11/21/2018 6:17 AM EDT 11/21/2018 6:40 AM EDT Narrative Resulting Agency Comment Spec In Lab Danica Friedman MD CHEMISTRY ORDERABLES [facility] [place] [address] * POCT Glucose (11/21/2018 3:52 AM EDT) Glucose, POC 97 65 - 199 mg/dL [facility] Comment: Supplemental ranges: <140 mg/dL before meals <180 mg/dL all other times of the day Blood specimen (specimen) 11/21/2018 3:52 AM EDT 11/21/2018 3:52 AM EDT Antonette Welsh MD POINT OF CARE BRI T ORDERABLES Performing Organization Address [facility]/ZIP Co de Phone Number [facility] [place] [address] * POCT Glucose (11/20/2018 11:18 PM EDT) Glucose, POC 98 65 - 199 mg/dL [facility] Comment: Supplemental ranges: <140 mg/dL before meals <180 mg/dL all other times of the day Blood specimen (specimen) 11/20/2018 11:18 PM EDT 11/20/2018 11:18 PM EDT Antonette Welsh MD POINT OF CARE BRI T ORDERABLES Performing Organization Address City/[facility]/ZIP Co de Phone Number [facility] [place] [id number] * POCT Glucose (11/20/2018 8:03 PM EDT) Glucose, POC 137 65 - 199 mg/dL [facility] Comment: Supplemental ranges: <140 mg/dL before meals <180 mg/dL all other times of the day Blood specimen (specimen) 11/20/2018 8:03 PM EDT 11/20/2018 8:03 PM EDT Antonette Welsh MD POINT OF CARE BRI T ORDERABLES Performing Organization Address [facility]/ZIP Co de Phone Number [facility] [place] [place] [address] * POCT Glucose (11/20/2018 4:19 PM EDT) Glucose, POC 113 65 - 199 mg/dL [facility] Comment: Supplemental ranges: <140 mg/dL before meals <180 mg/dL all other times of the day Blood specimen (specimen) 11/20/2018 4:19 PM EDT 11/20/2018 4:19 PM EDT Antonette Welsh MD POINT OF CARE BRI T ORDERABLES Performing Organization Address [facility]/ZIP Co de Phone Number [facility] [place] [place] [address] * POCT Glucose (11/20/2018 12:47 PM EDT) Glucose, POC 108 65 - 199 mg/dL [facility] Comment: Supplemental ranges: <140 mg/dL before meals <180 mg/dL all other times of the day Blood specimen (specimen) 11/20/2018 12:47 PM EDT 11/20/2018 12:47 PM EDT Danica Friedman MD POINT OF CARE TEST O RDERABLES Performing Organization Address City/[facility]/ZIP Co de Phone Number [facility] [place] [place] [address] * POCT Glucose (11/20/2018 8:28 AM EDT) Glucose, POC 98 65 - 199 mg/dL [facility] Comment: Supplemental ranges: <140 mg/dL before meals <180 mg/dL all other times of the day Blood specimen (specimen) 11/20/2018 8:28 AM EDT 11/20/2018 8:28 AM EDT Danica Friedman MD POINT OF CARE TEST O RODDY Performing Organization Address [facility]/ZIP Co de Phone Number [facility] [place] [place] [address] * POCT Glucose (11/20/2018 3:37 AM EDT) Pathologist [facility] Glucose, POC 93 65 - 199 mg/dL [facility] Comment: Supplemental ranges: <140 mg/dL before meals <180 mg/dL all other times of the day Blood specimen (specimen) 11/20/2018 3:37 AM EDT 11/20/2018 3:37 AM EDT Danica Friedman MD POINT OF CARE TEST O RDERAKAYLEY Performing Organization Address [facility] Co de Phone Number [facility] [place] [address] * (ABNORMAL) CK (11/20/2018 1:35 AM EDT) [facility] Creatine Kinase 831(H) 0 - 160 unit/L [facility] Blood specimen (specimen) Venous Draw / Unknown 11/20/2018 1:35 AM EDT 11/20/2018 3:16 AM EDT Narrative Resulting Agency Comment Spec In Lab Danica Friedman MD CHEMISTRY ORDERABLES Performing Organization Address [facility] Co de Phone Number [facility] [place] [place] [address] * (ABNORMAL) Differential, Automated (11/20/2018 1:35 AM EDT) [facility] Neutrophil % 65.0 % [facility] Neutrophil Absolute 7.45(H) 1.70 - 6.10 x10(3)/mc L [facility] Lymph % 23.9 % [facility] Lymphocytes Abs 2.7 0.9 - 3.2 x10(3)/ L [facility] Monocyte % 6.6 % [facility] Monocyte Abs 0.8 0.3 - 0.9 x10(3)/[facility] Eos % 2.0 % [facility] Eosinophils Abs 0.2 0.0 - 0.4 x10(3)/[facility] Basophil % 0.2 % [facility] Baso Absolute 0.0 0.0 - 0.1 x10(3)/[facility] Immature Gran % 2.30 % [facility] Comment: Immature granulocytes(IG's)percentage and absolute count will include metamyelocytes, myelocytes, and promyelocytes. Blood smears from CBCs yielding IG's will be scanned manually for concordance. If this scan disagrees with the automated IG or if promyelocytes are noted, a manual differential will be performed. Immature Gran Absolute 0.26(H) 0.00 - 0.04 x10(3)/[facility] Blood specimen (specimen) 11/20/2018 1:35 AM EDT 11/20/2018 2:16 AM EDT Narrative Resulting Agency Comment Spec In Lab Kelly Bermudez MD HEMATOLOGY ORDERABLE S Performing Organization Address City/State/[facility] Co de Phone Number [facility] [place] [address] * (ABNORMAL) Hemogram (11/20/2018 1:35 AM EDT) White Blood Cell 11.5(H) 4.0 - 9.5 x10(3)/[facility] Red Blood Cell 4.19 4.00 - 5.21 x10(6)/[facility] Hemoglobin 11.2(L) 11.7 - 15.5 gm/dL [facility] Hematocrit 34.8(L) 35.7 - 45.8 % [facility] Mean Cell Volume 83.1 82.6 - 94.4 fL [facility] Mean Cell Hemoglobin 26.7(L) 27.1 - 32.0 pg [facility] Mean Cell Hemoglobin Concentration 32.2 31.7 - 35.0 gm/dL [facility] Platelet 224 145 - 357 x10(3)/mc L [facility] RDW Standard Deviation 49.4(H) 37.0 - 46.0 fL [facility] RDW coefficient of variation 16.6(H) 11.5 - 14.1 % [facility] Mean Platelet Volume 11.5 7.6 - 12.9 fL [facility] NRBC% auto 0.0 % [facility] NRBC Absolute 0.000 0.000 - 0.000 x10(3)/mc L [facility] Blood specimen (specimen) 11/20/2018 1:35 AM EDT 11/20/2018 2:16 AM EDT Narrative Resulting Agency Comment Spec In Lab Kelly Bermudez MD HEMATOLOGY ORDERABLE S Performing Organization Address City/State/[facility] Co de Phone Number [facility] [place] [address] * (ABNORMAL) Basic Metabolic Panel (non-fasting) (11/20/2018 1:35 AM EDT) Glucose 92 65 - 199 mg/dL [facility] Comment:Diabetes: >=200 mg/d L plus symptoms Blood Urea Nitrogen 19(H) 8 - 18 mg/dL [facility] Creatinine 0.73 0.70 - 1.20 mg/dL [facility] Sodium 135 135 - 145 mmol/L [facility] Potassium 3.8 3.5 - 5.0 mmol/L [facility] Comment: Please note: ??Patients with WBC >100,000 may have falsely elevated Potassium levels. ??For accurate Potassium quantification in these patients send serum separator tube (gold top) for subsequent determinations. ??Contact the Clinical Chemistry Laboratory if there are any questions. Chloride 95(L) 98 - 107 mmol/L [facility] Carbon Dioxide 23 22 - 31 mmol/L [facility] Anion Gap 17(H) 5 - 15 mmol/L [facility] Calcium 10.1 8.5 - 10.5 mg/dL [facility] Comment:result rechecked-yuly Est Glomerular Filtration Rate 92 >=60 mL/min/1. 73 m?? [facility] Comment: The eGFR was calculated using the CKD-EPI equation. As with all creatinine based estimates of kidney function, eGFR values calculated with the CKD-EPI equation are not accurate in patients with acute kidney failure, extremes of body mass or the acutely ill. [email or web address] eGFR 107 >=60 mL/min/1. 73 m?? [facility] Comment: The eGFR was calculated using the CKD-EPI equation. As with all creatinine based estimates of kidney function, eGFR values calculated with the CKD-EPI equation are not accurate in patients with acute kidney failure, extremes of body mass or the acutely ill. [email or web address] Blood specimen (specimen) 11/20/2018 1:35 AM EDT 11/20/2018 2:16 AM EDT Narrative Resulting Agency Comment Spec In Lab Danica Friedman MD CHEMISTRY ORDERABLES Performing Organization Address City/State/[facility] Co de Phone Number [facility] [place] [place] [address] * (ABNORMAL) BLOOD GAS 2 ARTERIAL (11/19/2018 11:35 PM EDT) pH, Arterial 7.50(H) 7.35 - 7.45 [facility] PCO2, Arterial 28(L) 35 - 45 mmHg [facility] PO2, Arterial 67(L) 85 - 104 mmHg [facility] Bicarbonate, Arterial 21.8 20.0 - 26.0 mmol/L [facility] Base Excess, Arterial -1.4 -3.0 - 3.0 mmol/L [facility] Hgb Blood Gas 12.0 11.7 - 15.5 gm/dL [facility] Oxyhemoglobin, Arterial 91.8(L) 94.0 - 97.0 % [facility] Carboxyhemoglob in, Arterial 0.6 % [facility] Comment: Nonsmokers: 0.5-1.5% COHB Smokers: Variable, but usually less than 10% Toxic: 20-30% COHB Lethal: Greater than 60% COHB Methemoglobin, Arterial 0.2 <=1.5 % [facility] Na Whole Blood 135 135 - 145 mmol/L [facility] K Whole Blood 4.0 3.5 - 5.0 mmol/L [facility] Comment: Please note: Patients with WBC >100,000 may have falsely elevated Potassium levels. Contact the Clinical Chemistry Laboratory if there are any questions. ICa Whole Blood 1.23 1.15 - 1.33 mmol/L [facility] Comment: Note: ??Total bilirubin higher than 20 mg/dL may lead to falsely low ionized calcium. CL Whole Blood 101 98 - 107 mmol/L [facility] Gluc Whole Bld 103 65 - 199 mg/dL [facility] Comment:Diabetes: >=200 mg/d L plus symptoms. Lactate WB 0.9 0.5 - 2.2 mmol/L [facility] FIO2 Art 28 % [facility] PF Ratio Art 239 [facility] Blood specimen (specimen) 11/19/2018 11:35 PM EDT 11/19/2018 11:35 PM EDT Danica Friedman MD POINT OF CARE TEST O RDERABLES [facility] [place] [address] * POCT Glucose (11/19/2018 11:20 PM EDT) Glucose, POC 98 65 - 199 mg/dL [facility] Comment: Supplemental ranges: <140 mg/dL before meals <180 mg/dL all other times of the day Blood specimen (specimen) 11/19/2018 11:20 PM EDT 11/19/2018 11:20 PM EDT Danica Friedman MD POINT OF CARE TEST O RDERABLES [facility] [place] [address] * XR Chest PA or AP 1 view (11/19/2018 8:12 PM EDT) Anatomical Region Laterality Modality Chest N/A Digital Radiogra phy Impressions 11/20/2018 1:47 AM EDT Stable examination, no pneumothorax. Thank you for letting us participate in the care of this patient. For questions regarding this report, please contact the number below. ? Electronically signed by: Enedelia Thompson [facility] ([phone]), at 11/20/2018 1:47 AM Narrative 11/20/2018 1:47 [...] number below. Electronically signed by: Enedelia Thompson [facility]([phone]), at 11/20/2018 1:47 AM Danica Friedman MD IMG DX ORDERABLES * POCT Glucose (11/19/2018 7:55 PM EDT) Glucose, POC 96 65 - 199 mg/dL [facility] Comment: Supplemental ranges: <140 mg/dL before meals <180 mg/dL all other times of the day Blood specimen (specimen) 11/19/2018 7:55 PM EDT 11/19/2018 7:55 PM EDT Dancia Friedman MD POINT OF CARE TEST O RDERAKAYLEY Performing Organization Address [facility]/ZIP Co de Phone Number [facility] [place] [place] [address] * POCT Glucose (11/19/2018 3:58 PM EDT) Glucose, POC 113 65 - 199 mg/dL [facility] Comment: Supplemental ranges: <140 mg/dL before meals <180 mg/dL all other times of the day Blood specimen (specimen) 11/19/2018 3:58 PM EDT 11/19/2018 3:58 PM EDT Danica Friedman MD POINT OF CARE TEST O RODDY Performing Organization Address [facility]/ZIP Co de Phone Number [facility] [place] [place] [address] * XR Chest PA or AP 1 [...] this report, please contact the number below. Danica Friedman MD IMG DX ORDERABLES * POCT Glucose (11/19/2018 11:48 AM EDT) Glucose, POC 117 65 - 199 mg/dL [facility] Comment: Supplemental ranges: <140 mg/dL before meals <180 mg/dL all other times of the day Blood specimen (specimen) 11/19/2018 11:48 AM EDT 11/19/2018 11:48 AM EDT Danica Friedman MD POINT OF CARE TEST O RDERABLES Performing Organization Address [facility] Co de Phone Number [facility] [place] [address] * POCT Glucose (11/19/2018 7:56 AM EDT) Glucose, POC 125 65 - 199 mg/dL [facility] Comment: Supplemental ranges: <140 mg/dL before meals <180 mg/dL all other times of the day Blood specimen (specimen) 11/19/2018 7:56 AM EDT 11/19/2018 7:56 AM EDT Danica Friedman MD POINT OF CARE TEST O RDERABLES Performing Organization Address [facility] Co de Phone Number [facility] [place] [id number] * POCT Glucose (11/19/2018 3:46 AM EDT) Glucose, POC 133 65 - 199 mg/dL [facility] Comment: Supplemental ranges: <140 mg/dL before meals <180 mg/dL all other times of the day Blood specimen (specimen) 11/19/2018 3:46 AM EDT 11/19/2018 3:46 AM EDT Dancia Friedman MD POINT OF CARE TEST O RDERABLES Performing Organization Address City/[facility]/[place] [address] * (ABNORMAL) Differential, Automated (11/19/2018 3:45 AM EDT) Neutrophil % 59.9 % [facility] Neutrophil Absolute 5.76 1.70 - 6.10 x10(3)/mc L [facility] Lymph % 26.3 % [facility] Lymphocytes Abs 2.5 0.9 - 3.2 x10(3)/[facility] Monocyte % 7.1 % [facility] Monocyte Abs 0.7 0.3 - 0.9 x10(3)/ L [facility] Eos % 3.2 % [facility] Eosinophils Abs 0.3 0.0 - 0.4 x10(3)/[facility] Basophil % 0.3 % [facility] Baso Absolute 0.0 0.0 - 0.1 x10(3)/ L [facility] Immature Gran % 3.20 % [facility] Comment: Immature granulocytes(IG's)percentage and absolute count will include metamyelocytes, myelocytes, and promyelocytes. Blood smears from CBCs yielding IG's will be scanned manually for concordance. If this scan disagrees with the automated IG or if promyelocytes are noted, a manual differential will be performed. Immature Gran Absolute 0.31(H) 0.00 - 0.04 x10(3)/ L [facility] Blood specimen (specimen) 11/19/2018 3:45 AM EDT 11/19/2018 4:00 AM EDT Narrative Resulting Agency Comment Spec In Lab Kelly Bermudez MD HEMATOLOGY ORDERABLE S Performing Organization Address City/[facility]/[place] [address] * (ABNORMAL) Hemogram (11/19/2018 3:45 AM EDT) Pathologist [facility] White Blood Cell 9.6(H) 4.0 - 9.5 x10(3)/[facility] Red Blood Cell 3.60(L) 4.00 - 5.21 x10(6)/[facility] Hemoglobin 9.6(L) 11.7 - 15.5 gm/dL [facility] Hematocrit 30.1(L) 35.7 - 45.8 % [facility] Mean Cell Volume 83.6 82.6 - 94.4 fL [facility] Mean Cell Hemoglobin 26.7(L) 27.1 - 32.0 pg [facility] Mean Cell Hemoglobin Concentration 31.9 31.7 - 35.0 gm/dL [facility] Platelet 217 145 - 357 x10(3)/[facility] RDW Standard Deviation 49.5(H) 37.0 - 46.0 [facility] RDW coefficient of variation 16.5(H) 11.5 - 14.1 % [facility] Mean Platelet Volume 11.4 7.6 - 12.9 fL [facility] NRBC% auto 0.0 % [facility] NRBC Absolute 0.000 0.000 - 0.000 x10(3)/[facility] Blood specimen (specimen) 11/19/2018 3:45 AM EDT 11/19/2018 4:00 AM EDT Narrative Resulting Agency Comment Spec In Lab Kelly Bermudez MD HEMATOLOGY ORDERABLE S [facility] [place] [address] * (ABNORMAL) Basic Metabolic Panel (non-fasting) (11/19/2018 3:45 AM EDT) Pathologist [facility] Glucose 133 65 - 199 mg/dL [facility] Comment:Diabetes: >=200 mg/d L plus symptoms Blood Urea Nitrogen 24(H) 8 - 18 mg/dL [facility] Creatinine 0.87 0.70 - 1.20 mg/dL [facility] Sodium 136 135 - 145 mmol/L [facility] Potassium 4.3 3.5 - 5.0 mmol/L [facility] Comment: Please note: ??Patients with WBC >100,000 may have falsely elevated Potassium levels. ??For accurate Potassium quantification in these patients send serum separator tube (gold top) for subsequent determinations. ??Contact the Clinical Chemistry Laboratory if there are any questions. Chloride 95(L) 98 - 107 mmol/L [facility] Carbon Dioxide 29 22 - 31 mmol/L [facility] Anion Gap 12 5 - 15 mmol/L [facility] Calcium 9.2 8.5 - 10.5 mg/dL [facility] Est Glomerular Filtration Rate 74 >=60 mL/min/1. 73 m?? [facility] Comment: The eGFR was calculated using the CKD-EPI equation. As with all creatinine based estimates of kidney function, eGFR values calculated with the CKD-EPI equation are not accurate in patients with acute kidney failure, extremes of body mass or the acutely ill. [email or web address] eGFR 86 >=60 mL/min/1. 73 m?? [facility] Comment: The eGFR was calculated using the CKD-EPI equation. As with all creatinine based estimates of kidney function, eGFR values calculated with the CKD-EPI equation are not accurate in patients with acute kidney failure, extremes of body mass or the acutely ill. [email or web address] Blood specimen (specimen) 11/19/2018 3:45 AM EDT 11/19/2018 4:00 AM EDT Narrative Resulting Agency Comment Spec In Lab Danica Friedman MD CHEMISTRY ORDERABLES [facility] [place] [place] [address] * POCT Glucose (11/19/2018 12:15 AM EDT) Glucose, POC 136 65 - 199 mg/dL [facility] Comment: Supplemental ranges: <140 mg/dL before meals <180 mg/dL all other times of the day Blood specimen (specimen) 11/19/2018 12:15 AM EDT 11/19/2018 12:15 AM EDT Danica Friedman MD POINT OF CARE TEST O RDERABLES Performing Organization Address [facility]/ZIP Co de Phone Number [facility] [place] [place] [address] * Magnesium (11/18/2018 9:40 PM EDT) [facility] Magnesium 0.75 0.69 - 1.07 mmol/L [facility] Blood specimen (specimen) 11/18/2018 9:40 PM EDT 11/18/2018 9:44 PM EDT Narrative Resulting Agency Comment Spec In Lab Danica Friedman MD CHEMISTRY ORDERABLES Performing Organization Address [facility]/ZIP Co de Phone Number [facility] [place] [place] [address] * (ABNORMAL) Basic Metabolic Panel (non-fasting) (11/18/2018 9:40 PM EDT) [facility] Glucose 146 65 - 199 mg/dL [facility] Comment:Diabetes: >=200 mg/d L plus symptoms Blood Urea Nitrogen 25(H) 8 - 18 mg/dL [facility] Creatinine 0.91 0.70 - 1.20 mg/dL [facility] Sodium 140 135 - 145 mmol/L [facility] Potassium 4.5 3.5 - 5.0 mmol/L [facility] Comment: Please note: ??Patients with WBC >100,000 may have falsely elevated Potassium levels. ??For accurate Potassium quantification in these patients send serum separator tube (gold top) for subsequent determinations. ??Contact the Clinical Chemistry Laboratory if there are any questions. Chloride 97(L) 98 - 107 mmol/L [facility] Carbon Dioxide 30 22 - 31 mmol/L [facility] Anion Gap 13 5 - 15 mmol/L [facility] Calcium 9.3 8.5 - 10.5 mg/dL [facility] Est Glomerular Filtration Rate 71 >=60 mL/min/1. 73 m?? [facility] Comment: The eGFR was calculated using the CKD-EPI equation. As with all creatinine based estimates of kidney function, eGFR values calculated with the CKD-EPI equation are not accurate in patients with acute kidney failure, extremes of body mass or the acutely ill. [email or web address] eGFR 82 >=60 mL/min/1. 73 m?? [facility] Comment: The eGFR was calculated using the CKD-EPI equation. As with all creatinine based estimates of kidney function, eGFR values calculated with the CKD-EPI equation are not accurate in patients with acute kidney failure, extremes of body mass or the acutely ill. [email or web address] Blood specimen (specimen) 11/18/2018 9:40 PM EDT 11/18/2018 9:44 PM EDT Narrative Resulting Agency Comment Spec In Lab Danica Friedman MD CHEMISTRY ORDERABLES [facility] [place] [place] [address] * POCT Glucose (11/18/2018 7:25 PM EDT) Glucose, POC 152 65 - 199 mg/dL [facility] Comment: Supplemental ranges: <140 mg/dL before meals <180 mg/dL all other times of the day Blood specimen (specimen) 11/18/2018 7:25 PM EDT 11/18/2018 7:25 PM EDT Danica Friedman MD POINT OF CARE TEST O RDERABLES Performing Organization Address [facility] Co de Phone Number [facility] [place] [place] [address] * EKG 12 Lead (11/18/2018 6:46 PM EDT) Ventricular rate 73 BPM MUSE SYSTEM Atrial Rate 73 BPM MUSE SYSTEM P-R Interval 122 ms MUSE SYSTEM QRS Duration 98 ms MUSE SYSTEM Q-T Interval 376 ms MUSE SYSTEM QTC Calculated (Bezet) 414 ms MUSE SYSTEM Calculated P O'Brien 63 degrees MUSE SYSTEM Calculated R O'Brien 61 degrees MUSE SYSTEM Calculated T O'Brien 55 degrees MUSE SYSTEM INTERPRETATION Normal sinus rhythm Normal ECG When compared with ECG of 13-NOV-2018 23:11, No significant change was found Confirmed by MD RADHA, ROHAN ([id number]) on 11/18/2018 8:51:11 PM MUSE SYSTEM 11/18/2018 6:46 PM EDT 11/18/2018 8:51 PM EDT Danica Friedman MD ECG ORDERABLES Performing Organization Address [facility] de Phone Number MUSE SYSTEM * POCT Glucose (11/18/2018 3:30 PM EDT) Glucose, POC 106 65 - 199 mg/dL [facility] Comment: Supplemental ranges: <140 mg/dL before meals <180 mg/dL all other times of the day Blood specimen (specimen) 11/18/2018 3:30 PM EDT 11/18/2018 3:30 PM EDT Danica Friedman MD POINT OF CARE TEST O RDERABLES Performing Organization Address [facility] Co de Phone Number [facility] [place] [place] [address] * POCT Glucose (11/18/2018 12:06 PM EDT) Glucose, POC 94 65 - 199 mg/dL [facility] Comment: Supplemental ranges: <140 mg/dL before meals <180 mg/dL all other times of the day Blood specimen (specimen) 11/18/2018 12:06 PM EDT 11/18/2018 12:06 PM EDT Danica Friedman MD POINT OF CARE TEST O RDALICIA [facility] [address] * (ABNORMAL) BLOOD GAS 2 ARTERIAL (11/18/2018 7:53 AM EDT) pH, Arterial 7.49(H) 7.35 - 7.45 [facility] PCO2, Arterial 37 35 - 45 mmHg [facility] PO2, Arterial 64(L) 85 - 104 mmHg [facility] Bicarbonate, Arterial 27.2(H) 20.0 - 26.0 mmol/L [facility] Base Excess, Arterial 3.8(H) -3.0 - 3.0 mmol/L [facility] Hgb Blood Gas 10.0(L) 11.7 - 15.5 gm/dL [facility] Oxyhemoglobin, Arterial 91.2(L) 94.0 - 97.0 % [facility] Carboxyhemoglob in, Arterial 0.2 % [facility] Comment: Nonsmokers: 0.5-1.5% COHB Smokers: Variable, but usually less than 10% Toxic: 20-30% COHB Lethal: Greater than 60% COHB Methemoglobin, Arterial 0.3 <=1.5 % [facility] Na Whole Blood 137 135 - 145 mmol/L [facility] K Whole Blood 4.3 3.5 - 5.0 mmol/L [facility] Comment: Please note: Patients with WBC >100,000 may have falsely elevated Potassium levels. Contact the Clinical Chemistry Laboratory if there are any questions. ICa Whole Blood 1.16 1.15 - 1.33 mmol/L [facility] Comment: Note: ??Total bilirubin higher than 20 mg/dL may lead to falsely low ionized calcium. CL Whole Blood 103 98 - 107 mmol/L [facility] Gluc Whole Bld 97 65 - 199 mg/dL [facility] Comment:Diabetes: >=200 mg/d L plus symptoms. Lactate WB 0.6 0.5 - 2.2 mmol/L [facility] FIO2 Art 30 % [facility] PF Ratio Art 213 [facility] Blood specimen (specimen) 11/18/2018 7:53 AM EDT 11/18/2018 7:53 AM EDT Danica Friedman MD POINT OF CARE TEST O RDERAKAYLEY [facility] [place] [place] [address] * POCT Glucose (11/18/2018 7:53 AM EDT) Glucose, POC 103 65 - 199 mg/dL [facility] Comment: Supplemental ranges: <140 mg/dL before meals <180 mg/dL all other times of the day Blood specimen (specimen) 11/18/2018 7:53 AM EDT 11/18/2018 7:53 AM EDT Danica Friedman MD POINT OF CARE TEST O RODDY Performing Organization Address City/[facility]/ZIP Co de Phone Number [facility] [place] [address] * POCT Glucose (11/18/2018 4:07 AM EDT) Glucose, POC 99 65 - 199 mg/dL [facility] Comment: Supplemental ranges: <140 mg/dL before meals <180 mg/dL all other times of the day Blood specimen (specimen) 11/18/2018 4:07 AM EDT 11/18/2018 4:07 AM EDT Danica Friedman MD POINT OF CARE TEST O RODDY [facility] [place] [address] * (ABNORMAL) Differential, Automated (11/18/2018 12:30 AM EDT) Neutrophil % 55.1 % [facility] Neutrophil Absolute 6.56(H) 1.70 - 6.10 x10(3)/[facility] Lymph % 31.6 % [facility] Lymphocytes Abs 3.8(H) 0.9 - 3.2 x10(3)/[facility] Monocyte % 6.9 % [facility] Monocyte Abs 0.8 0.3 - 0.9 x10(3)/[facility] Eos % 3.7 % [facility] Eosinophils Abs 0.4 0.0 - 0.4 x10(3)/[facility] Basophil % 0.3 % [facility] Baso Absolute 0.0 0.0 - 0.1 x10(3)/[facility] Immature Gran % 2.40 % [facility] Comment: Immature granulocytes(IG's)percentage and absolute count will include metamyelocytes, myelocytes, and promyelocytes. Blood smears from CBCs yielding IG's will be scanned manually for concordance. If this scan disagrees with the automated IG or if promyelocytes are noted, a manual differential will be performed. Immature Gran Absolute 0.28(H) 0.00 - 0.04 x10(3)/[facility] Blood specimen (specimen) 11/18/2018 12:30 AM EDT 11/18/2018 12:39 AM EDT Narrative Resulting Agency Comment Spec In Lab Kelly Bermudez MD HEMATOLOGY ORDERABLE S [facility] [place] [place] [address] * (ABNORMAL) Hemogram (11/18/2018 12:30 AM EDT) White Blood Cell 11.9(H) 4.0 - 9.5 x10(3)/ L [facility] Red Blood Cell 3.32(L) 4.00 - 5.21 x10(6)/mc L [facility] Hemoglobin 9.0(L) 11.7 - 15.5 gm/dL [facility] Hematocrit 28.5(L) 35.7 - 45.8 % [facility] Mean Cell Volume 85.8 82.6 - 94.4 fL [facility] Mean Cell Hemoglobin 27.1 27.1 - 32.0 pg [facility] Mean Cell Hemoglobin Concentration 31.6(L) 31.7 - 35.0 gm/dL [facility] Platelet 201 145 - 357 x10(3)/[facility] LABORATORY RDW Standard Deviation 52.6(H) 37.0 - 46.0 [facility] LAB[facility]ORY RDW coefficient of variation 17.1(H) 11.5 - 14.1 % [facility] Mean Platelet Volume 11.3 7.6 - 12.9 [facility] NRBC% auto 0.0 % [facility] NRBC Absolute 0.000 0.000 - 0.000 x10(3)/[facility] Blood specimen (specimen) 11/18/2018 12:30 AM EDT 11/18/2018 12:39 AM EDT Narrative Resulting Agency Comment Spec In Lab Kelly Bermudez MD HEMATOLOGY ORDERABLE S [facility] [place] [place] [address] * (ABNORMAL) Basic Metabolic Panel (non-fasting) (11/18/2018 12:30 AM EDT) Glucose 94 65 - 199 mg/dL [facility] Comment:Diabetes: >=200 mg/d L plus symptoms Blood Urea Nitrogen 26(H) 8 - 18 mg/dL [facility] Creatinine 0.74 0.70 - 1.20 mg/dL [facility] Sodium 141 135 - 145 mmol/L [facility] questions. Chloride 104 98 - 107 mmol/L [facility] Carbon Dioxide 28 22 - 31 mmol/L [facility] Anion Gap 9 5 - 15 mmol/L [facility] Calcium 8.6 8.5 - 10.5 mg/dL [facility] Est Glomerular Filtration Rate 91 >=60 mL/min/1. 73 m?? [facility] Comment: The eGFR was calculated using the CKD-EPI equation. As with all creatinine based estimates of kidney function, eGFR values calculated with the CKD-EPI equation are not accurate in patients with acute kidney failure, extremes of body mass or the acutely ill. [email or web address] eGFR 105 >=60 mL/min/1. 73 m?? [facility] Comment: The eGFR was calculated using the CKD-EPI equation. As with all creatinine based estimates of kidney function, eGFR values calculated with the CKD-EPI equation are not accurate in patients with acute kidney failure, extremes of body mass or the acutely ill. [email or web address] Blood specimen (specimen) 11/18/2018 12:30 AM EDT 11/18/2018 12:39 AM EDT Narrative Resulting Agency Comment Spec In Lab Danica Friedman MD CHEMISTRY ORDERABLES [facility] [place] [address] * Phosphorus (11/18/2018 12:30 AM EDT) Phosphorus 3.8 2.5 - 4.5 mg/dL [facility] Blood specimen (specimen) 11/18/2018 12:30 AM EDT 11/18/2018 12:39 AM EDT Narrative Resulting Agency Comment Spec In Lab Danica Friedman MD CHEMISTRY ORDERABLES Performing Organization Address [facility] Co de Phone Number [facility] [place] [address] * Magnesium (11/18/2018 12:30 AM EDT) Magnesium 0.79 0.69 - 1.07 mmol/L [facility] Blood specimen (specimen) 11/18/2018 12:30 AM EDT 11/18/2018 12:39 AM EDT Narrative Resulting Agency Comment Spec In Lab Danica Friedman MD CHEMISTRY ORDERABLES Performing Organization Address [facility] Co de Phone Number [facility] [place] [place] [address] * (ABNORMAL) CK (11/18/2018 12:30 AM EDT) Creatine Kinase 2,424(H) 0 - 160 unit/L [facility] Comment:result rechecked-yuly Blood specimen (specimen) 11/18/2018 12:30 AM EDT 11/18/2018 12:39 AM EDT Narrative Resulting Agency Comment Spec In Lab Danica Friedman MD CHEMISTRY ORDERABLES Performing Organization Address [facility] Co de Phone Number [facility] [place] [place] [address] * Triglyceride (11/18/2018 12:30 AM EDT) Triglyceride 202 mg/dL [facility] Comment: Average Risk/Lower Risk: <150 mg/dL Borderline High Risk: 150-199 mg/dL High Risk: 200-499 mg/dL Very High Risk: >zd=289 mg/dL Blood specimen (specimen) 11/18/2018 12:30 AM EDT 11/18/2018 12:39 AM EDT Narrative Resulting Agency Comment Spec In Lab Danica Friedman MD CHEMISTRY ORDERABLES Performing Organization Address [facility] Co de Phone Number [facility] [place] [place] [address] * POCT Glucose (11/18/2018 12:26 AM EDT) Glucose, POC 96 65 - 199 mg/dL [facility] Comment: Supplemental ranges: <140 mg/dL before meals <180 mg/dL all other times of the day Blood specimen (specimen) 11/18/2018 12:26 AM EDT 11/18/2018 12:26 AM EDT Danica Friedman MD POINT OF CARE TEST O RDERABLES Performing Organization Address [facility] Co de Phone Number [facility] [place] [address] * POCT Glucose (11/17/2018 8:08 PM EDT) Glucose, POC 95 65 - 199 mg/dL [facility] Comment: Supplemental ranges: <140 mg/dL before meals <180 mg/dL all other times of the day Blood specimen (specimen) 11/17/2018 8:08 PM EDT 11/17/2018 8:08 PM EDT Danica Friedman MD POINT OF CARE TEST O RODDY Performing Organization Address [facility] Co de Phone Number [facility] [place] [place] [address] * POCT Glucose (11/17/2018 4:08 PM EDT) Glucose, POC 114 65 - 199 mg/dL [facility] Comment: Supplemental ranges: <140 mg/dL before meals <180 mg/dL all other times of the day Blood specimen (specimen) 11/17/2018 4:08 PM EDT 11/17/2018 4:08 PM EDT Vivian Valdez Jr., MD POINT OF CARE TE ST ORDERABLES Performing Organization Address [facility]/ZIP Co de Phone Number [facility] [place] [address] * Blood culture (11/17/2018 2:20 PM EDT) Blood Culture No growth at 5 days. [facility] Blood specimen (specimen) STRUCTURE OF LEFT WRIST REGION / Unknown 11/17/2018 2:20 PM EDT 11/17/2018 2:38 PM EDT Narrative Resulting Agency Comment Spec In Lab Danica Friedman MD MICROBIOLOGY - BLOOD ORDERABLES Performing Organization Address [facility] Co de Phone Number [facility] [place] [address] * (ABNORMAL) Lower Respiratory Culture Bronchial Alveolar Lavage (11/17/2018 1:49 PM EDT) Lower Respiratory Culture No growth(A) [facility] Gram Stain Few Neutrophils seen Rare Gram Positive Rods seen (A) [facility] Organism Gram Positive Rods(A) [facility] Bronchoalveolar lavage fluid specimen (specimen) 11/17/2018 1:49 PM EDT 11/17/2018 6:45 PM EDT Narrative Resulting Agency Comment Spec In Lab Danica Friedman MD MICROBIOLOGY - GENER AL ORDERABLES Performing Organization Address City/[facility]/ZIP Co de Phone Number [facility] [place] [address] * Blood culture (11/17/2018 12:30 PM EDT) Blood Culture No growth at 5 days. [facility] Blood specimen (specimen) STRUCTURE OF RIGHT HAND / Unknown 11/17/2018 12:30 PM EDT 11/17/2018 1:13 PM EDT Narrative Resulting Agency Comment Spec In Lab Danica Friedman MD MICROBIOLOGY - BLOOD ORDERABLES Performing Organization Address [facility]/ZIP Co de Phone Number [facility] [place] [place] [address] * POCT Glucose (11/17/2018 11:56 AM EDT) Glucose, POC 106 65 - 199 mg/dL [facility] Comment: Supplemental ranges: <140 mg/dL before meals <180 mg/dL all other times of the day Blood specimen (specimen) 11/17/2018 11:56 AM EDT 11/17/2018 11:56 AM EDT Vivian Valdez Jr., MD POINT OF CARE TE ST ORDERABLES Performing Organization Address [facility]/ZIP Co de Phone Number [facility] [place] [address] * XR Chest PA or AP 1 [...] this report, please contact the number below. Danica Friedman MD IMG DX ORDERABLES * (ABNORMAL) CK (11/17/2018 11:25 AM EDT) Creatine Kinase 2,493(H) 0 - 160 unit/L [facility] Blood specimen (specimen) 11/17/2018 11:25 AM EDT 11/17/2018 11:51 AM EDT Narrative Resulting Agency Comment Spec In Lab Vivian Valdez Jr., MD CHEMISTRY ORDERA BLES [facility] [place] [address] * POCT Glucose (11/17/2018 7:54 AM EDT) Glucose, POC 126 65 - 199 mg/dL [facility] Comment: Supplemental ranges: <140 mg/dL before meals <180 mg/dL all other times of the day Blood specimen (specimen) 11/17/2018 7:54 AM EDT 11/17/2018 7:54 AM EDT Vivian Valdez Jr., MD POINT OF CARE TE ST ORDERABLES [facility] [place] [address] * (ABNORMAL) BLOOD GAS 2 ARTERIAL (11/17/2018 7:32 AM EDT) pH, Arterial 7.43 7.35 - 7.45 [facility] PCO2, Arterial 40 35 - 45 mmHg [facility] PO2, Arterial 71(L) 85 - 104 mmHg [facility] Bicarbonate, Arterial 26.2(H) 20.0 - 26.0 mmol/L [facility] Base Excess, Arterial 1.9 -3.0 - 3.0 mmol/L [facility] Hgb Blood Gas 9.3(L) 11.7 - 15.5 gm/dL [facility] Oxyhemoglobin, Arterial 92.2(L) 94.0 - 97.0 % [facility] Carboxyhemoglob in, Arterial 0.4 % [facility] Comment: Nonsmokers: 0.5-1.5% COHB Smokers: Variable, but usually less than 10% Toxic: 20-30% COHB Lethal: Greater than 60% COHB Methemoglobin, Arterial 0.4 <=1.5 % [facility] Na Whole Blood 141 135 - 145 mmol/L [facility] K Whole Blood 4.1 3.5 - 5.0 mmol/L [facility] Comment: Please note: Patients with WBC >100,000 may have falsely elevated Potassium levels. Contact the Clinical Chemistry Laboratory if there are any questions. ICa Whole Blood 1.17 1.15 - 1.33 mmol/L [facility] Comment: Note: ??Total bilirubin higher than 20 mg/dL may lead to falsely low ionized calcium. CL Whole Blood 108(H) 98 - 107 mmol/L [facility] Gluc Whole Bld 120 65 - 199 mg/dL [facility] Comment:Diabetes: >=200 mg/d L plus symptoms. Lactate WB 0.7 0.5 - 2.2 mmol/L [facility] FIO2 Art 45 % [facility] PF Ratio Art 158 [facility] Blood specimen (specimen) 11/17/2018 7:32 AM EDT 11/17/2018 7:32 AM EDT Vivian Valdez Jr., MD POINT OF CARE TE ST ORDERABLES Performing Organization Address [facility] Co de Phone Number [facility] [place] [place] [address] * POCT Glucose (11/17/2018 3:57 AM EDT) Pathologist [facility] Glucose, POC 115 65 - 199 mg/dL [facility] Comment: Supplemental ranges: <140 mg/dL before meals <180 mg/dL all other times of the day Blood specimen (specimen) 11/17/2018 3:57 AM EDT 11/17/2018 3:57 AM EDT Vivian Valdez Jr., MD POINT OF CARE TE ST ORDERABLES Performing Organization Address [facility] Co de Phone Number [facility] [place] [place] [address] * (ABNORMAL) Differential, Automated (11/17/2018 1:25 AM EDT) Pathologist [facility] Neutrophil % 54.0 % [facility] Neutrophil Absolute 5.12 1.70 - 6.10 x10(3)/mc L [facility] Lymph % 35.9 % [facility] Lymphocytes Abs 3.4(H) 0.9 - 3.2 x10(3)/mc L [facility] Monocyte % 7.0 % [facility] Monocyte Abs 0.7 0.3 - 0.9 x10(3)/mc L [facility] Eos % 1.8 % [facility] Eosinophils Abs 0.2 0.0 - 0.4 x10(3)/mc L [facility] Basophil % 0.1 % [facility] Baso Absolute 0.0 0.0 - 0.1 x10(3)/ L [facility] Immature Gran % 1.20 % [facility] Comment: Immature granulocytes(IG's)percentage and absolute count will include metamyelocytes, myelocytes, and promyelocytes. Blood smears from CBCs yielding IG's will be scanned manually for concordance. If this scan disagrees with the automated IG or if promyelocytes are noted, a manual differential will be performed. Immature Gran Absolute 0.11(H) 0.00 - 0.04 x10(3)/ L [facility] Blood specimen (specimen) 11/17/2018 1:25 AM EDT 11/17/2018 1:39 AM EDT Narrative Resulting Agency Comment Spec In Lab Kelly Bermudez MD HEMATOLOGY ORDERABLE S Performing Organization Address City/State/[facility] Co de Phone Number [facility] [place] [address] * (ABNORMAL) Hemogram (11/17/2018 1:25 AM EDT) White Blood Cell 9.5 4.0 - 9.5 x10(3)/[facility] LABORAT[facility] Red Blood Cell 3.09(L) 4.00 - 5.21 x10(6)/ L [facility] Hemoglobin 8.3(L) 11.7 - 15.5 gm/dL [facility] Hematocrit 26.4(L) 35.7 - 45.8 % [facility] Mean Cell Volume 85.4 82.6 - 94.4 fL [facility] Mean Cell Hemoglobin 26.9(L) 27.1 - 32.0 pg [facility] Mean Cell Hemoglobin Concentration 31.4(L) 31.7 - 35.0 gm/dL [facility] Platelet 201 145 - 357 x10(3)/[facility] LABORATORY RDW Standard Deviation 53.3(H) 37.0 - 46.0 fL [facility] RDW coefficient of variation 17.2(H) 11.5 - 14.1 % [facility] Mean Platelet Volume 11.4 7.6 - 12.9 fL [facility] NRBC% auto 0.2 % [facility] NRBC Absolute 0.020(H) 0.000 - 0.000 x10(3)/mc L [facility] Blood specimen (specimen) 11/17/2018 1:25 AM EDT 11/17/2018 1:39 AM EDT Narrative Resulting Agency Comment Spec In Lab Kelly Bermudez MD HEMATOLOGY ORDERABLE S [facility] [place] [address] * (ABNORMAL) Basic Metabolic Panel (non-fasting) (11/17/2018 1:25 AM EDT) Glucose 112 65 - 199 mg/dL [facility] Comment:Diabetes: >=200 mg/d L plus symptoms Blood Urea Nitrogen 30(H) 8 - 18 mg/dL [facility] Creatinine 0.92 0.70 - 1.20 mg/dL [facility] Sodium 148(H) 135 - 145 mmol/L [facility] Potassium 4.3 3.5 - 5.0 mmol/L [facility] Comment: Please note: ??Patients with WBC >100,000 may have falsely elevated Potassium levels. ??For accurate Potassium quantification in these patients send serum separator tube (gold top) for subsequent determinations. ??Contact the Clinical Chemistry Laboratory if there are any questions. Chloride 110(H) 98 - 107 mmol/L [facility] Carbon Dioxide 28 22 - 31 mmol/L [facility] Anion Gap 10 5 - 15 mmol/L [facility] Calcium 8.5 8.5 - 10.5 mg/dL [facility] Est Glomerular Filtration Rate 70 >=60 mL/min/1. 73 m?? [facility] Comment: The eGFR was calculated using the CKD-EPI equation. As with all creatinine based estimates of kidney function, eGFR values calculated with the CKD-EPI equation are not accurate in patients with acute kidney failure, extremes of body mass or the acutely ill. [email or web address] eGFR 81 >=60 mL/min/1. 73 m?? [facility] Comment: The eGFR was calculated using the CKD-EPI equation. As with all creatinine based estimates of kidney function, eGFR values calculated with the CKD-EPI equation are not accurate in patients with acute kidney failure, extremes of body mass or the acutely ill. [email or web address] Blood specimen (specimen) 11/17/2018 1:25 AM EDT 11/17/2018 1:39 AM EDT Narrative Resulting Agency Comment Spec In Lab Danica Friedman MD CHEMISTRY ORDERABLES Performing Organization Address City/[facility]/ZIP Co de Phone Number [facility] [place] [address] * POCT Glucose (11/17/2018 12:16 AM EDT) Glucose, POC 111 65 - 199 mg/dL [facility] Comment: Supplemental ranges: <140 mg/dL before meals <180 mg/dL all other times of the day Blood specimen (specimen) 11/17/2018 12:16 AM EDT 11/17/2018 12:16 AM EDT Vivian Valdez Jr., MD POINT OF CARE TE ST ORDERABLES [facility] [place] [address] * POCT Glucose (11/16/2018 8:34 PM EDT) Glucose, POC 133 65 - 199 mg/dL [facility] Comment: Supplemental ranges: <140 mg/dL before meals <180 mg/dL all other times of the day Blood specimen (specimen) 11/16/2018 8:34 PM EDT 11/16/2018 8:34 PM EDT Vivian Valdez Jr., MD POINT OF CARE TE ST ORDERABLES Performing Organization Address [facility] Co de Phone Number [facility] [place] [address] * POCT Glucose (11/16/2018 3:53 PM EDT) Glucose, POC 115 65 - 199 mg/dL [facility] Comment: Supplemental ranges: <140 mg/dL before meals <180 mg/dL all other times of the day Blood specimen (specimen) 11/16/2018 3:53 PM EDT 11/16/2018 3:53 PM EDT Vivian Valdez Jr., MD POINT OF CARE TE ST ORDERABLES Performing Organization Address [facility] Co de Phone Number [facility] [place] [address] * POCT Glucose (11/16/2018 12:07 PM EDT) Glucose, POC 113 65 - 199 mg/dL [facility] Comment: Supplemental ranges: <140 mg/dL before meals <180 mg/dL all other times of the day Blood specimen (specimen) 11/16/2018 12:07 PM EDT 11/16/2018 12:07 PM EDT Vivian Valdez Jr., MD POINT OF CARE TE ST ORDERABLES Performing Organization Address [facility] Co de Phone Number [facility] [place] [place] [address] * XR Chest PA or AP 1 [...] the number below. ? Electronically signed by: Cirilo Bañuelos [facility] ([phone]), at 11/16/2018 12:51 PM Narrative 11/16/2018 12:51 PM EDT EXAMINATION: XR [...] the esophagus and courses inferiorly off the [id number] over the abdomen. Left central venous catheter [...] of the esophagus and coursesinferiorly off the [id number]-mosl over the abdomen. Left central venous catheter [...] EDT) pH, Arterial 7.45 7.35 - 7.45 [facility] PCO2, Arterial 38 35 - 45 mmHg [facility] PO2, Arterial 70(L) 85 - 104 mmHg [facility] Bicarbonate, Arterial 26.3(H) 20.0 - 26.0 mmol/L [facility] Base Excess, Arterial 2.3 -3.0 - 3.0 mmol/L [facility] Hgb Blood Gas 9.4(L) 11.7 - 15.5 gm/dL [facility] Oxyhemoglobin, Arterial 92.5(L) 94.0 - 97.0 % [facility] Carboxyhemoglob in, Arterial 0.3 % [facility] Comment: Nonsmokers: 0.5-1.5% COHB Smokers: Variable, but usually less than 10% Toxic: 20-30% COHB Lethal: Greater than 60% COHB Methemoglobin, Arterial 0.3 <=1.5 % [facility] Na Whole Blood 141 135 - 145 mmol/L [facility] K Whole Blood 4.0 3.5 - 5.0 mmol/L [facility] Comment: Please note: Patients with WBC >100,000 may have falsely elevated Potassium levels. Contact the Clinical Chemistry Laboratory if there are any questions. ICa Whole Blood 1.19 1.15 - 1.33 mmol/L [facility] Comment: Note: ??Total bilirubin higher than 20 mg/dL may lead to falsely low ionized calcium. CL Whole Blood 110(H) 98 - 107 mmol/L [facility] Gluc Whole Bld 108 65 - 199 mg/dL [facility] Comment:Diabetes: >=200 mg/d L plus symptoms. Lactate WB 0.9 0.5 - 2.2 mmol/L [facility] FIO2 Art 35 % [facility] PF Ratio Art 200 [facility] Blood specimen (specimen) 11/16/2018 10:55 AM EDT 11/16/2018 10:55 AM EDT Vivian Valdez Jr., MD POINT OF CARE ST ORDERABLES Performing Organization Address City/[facility] Co de Phone Number [facility] [place] [place] [address] * POCT Glucose (11/16/2018 10:23 AM EDT) Glucose, POC 114 65 - 199 mg/dL [facility] Comment: Supplemental ranges: <140 mg/dL before meals <180 mg/dL all other times of the day Blood specimen (specimen) 11/16/2018 10:23 AM EDT 11/16/2018 10:23 AM EDT Vivian Valdez Jr., MD POINT OF CARE TE ST ORDERABLES Performing Organization Address City/[facility]/ZIP Co de Phone Number [facility] [place] [place] [address] * Lower Respiratory Culture Tracheal Aspirate (11/16/2018 10:09 AM EDT) Gram Stain Few Neutrophils seen No squamous epithelial cells seen No microorganisms seen. Useful clinical information is unlikely from specimens in which no microorganisms are seen on Gram Stain, Culture not performed. [facility] Specimen from trachea obtained by aspiration (specimen) 11/16/2018 10:09 AM EDT 11/16/2018 12:43 PM EDT Narrative Resulting Agency Comment Spec In Lab Vivian Valdez Jr., MD MICROBIOLOGY - G ENERAL ORDERABLES Performing Organization Address City/[facility]/ZIP Co de Phone Number [facility] [place] [place] [address] * POCT Glucose (11/16/2018 8:05 AM EDT) Glucose, POC 124 65 - 199 mg/dL [facility] Comment: Supplemental ranges: <140 mg/dL before meals <180 mg/dL all other times of the day Blood specimen (specimen) 11/16/2018 8:05 AM EDT 11/16/2018 8:05 AM EDT Vivian Valdez Jr., MD POINT OF CARE TE ST ORDERABLES Performing Organization Address [facility]/ZIP Co de Phone Number [facility] [place] [address] * POCT Glucose (11/16/2018 3:50 AM EDT) Glucose, POC 145 65 - 199 mg/dL [facility] Comment: Supplemental ranges: <140 mg/dL before meals <180 mg/dL all other times of the day Blood specimen (specimen) 11/16/2018 3:50 AM EDT 11/16/2018 3:50 AM EDT Vivian Valdez Jr., MD POINT OF CARE TE ST ORDERABLES Performing Organization Address [facility]/ZIP Co de Phone Number [facility] [place] [address] * Magnesium (11/16/2018 2:25 AM EDT) Magnesium 1.02 0.69 - 1.07 mmol/L [facility] Blood specimen (specimen) Venous Draw / Unknown 11/16/2018 2:25 AM EDT 11/16/2018 3:45 AM EDT Narrative Resulting Agency Comment Spec In Lab Vickie Infante MD CHEMISTRY ORDERABLES [facility] [place] [place] [address] * (ABNORMAL) Differential, Automated (11/16/2018 2:25 AM EDT) Neutrophil % 63.0 % [facility] Neutrophil Absolute 6.82(H) 1.70 - 6.10 x10(3)/ L [facility] Lymph % 29.2 % [facility] Lymphocytes Abs 3.2 0.9 - 3.2 x10(3)/[facility] Monocyte % 6.6 % [facility] Monocyte Abs 0.7 0.3 - 0.9 x10(3)/[facility] Eos % 0.3 % [facility] Eosinophils Abs 0.0 0.0 - 0.4 x10(3)/[facility] Basophil % 0.1 % [facility] Baso Absolute 0.0 0.0 - 0.1 x10(3)/mc L [facility] Immature Gran % 0.80 % [facility] Comment: Immature granulocytes(IG's)percentage and absolute count will include metamyelocytes, myelocytes, and promyelocytes. Blood smears from CBCs yielding IG's will be scanned manually for concordance. If this scan disagrees with the automated IG or if promyelocytes are noted, a manual differential will be performed. Immature Gran Absolute 0.09(H) 0.00 - 0.04 x10(3)/mc L [facility] Blood specimen (specimen) 11/16/2018 2:25 AM EDT 11/16/2018 2:38 AM EDT Narrative Resulting Agency Comment Spec In Lab Kelly Bermudez MD HEMATOLOGY ORDERABLE S Performing Organization Address City/[facility]/ZIP Co de Phone Number [facility] [place] [place] [address] * (ABNORMAL) Hemogram (11/16/2018 2:25 AM EDT) White Blood Cell 10.8(H) 4.0 - 9.5 x10(3)/mc L [facility] Red Blood Cell 3.03(L) 4.00 - 5.21 x10(6)/mc L [facility] Hemoglobin 8.2(L) 11.7 - 15.5 gm/dL [facility] Hematocrit 26.4(L) 35.7 - 45.8 % [facility] Mean Cell Volume 87.1 82.6 - 94.4 fL [facility] Mean Cell Hemoglobin 27.1 27.1 - 32.0 pg [facility] Mean Cell Hemoglobin Concentration 31.1(L) 31.7 - 35.0 gm/dL [facility] Platelet 187 145 - 357 x10(3)/mc L [facility] RDW Standard Deviation 53.7(H) 37.0 - 46.0 fL [facility] RDW coefficient of variation 16.9(H) 11.5 - 14.1 % [facility] Mean Platelet Volume 11.5 7.6 - 12.9 fL [facility] NRBC% auto 0.0 % [facility] NRBC Absolute 0.000 0.000 - 0.000 x10(3)/mc L [facility] Blood specimen (specimen) 11/16/2018 2:25 AM EDT 11/16/2018 2:38 AM EDT Narrative Resulting Agency Comment Spec In Lab Kelly Bermudez MD HEMATOLOGY ORDERABLE S [facility] [place] [place] [address] * (ABNORMAL) BMP w/fasting Glucose (11/16/2018 2:25 AM EDT) Glucose Fasting 126(H) 65 - 99 mg/dL [facility] Comment: ?Fasting* Glucose Interpretive Criteria Normal [...] of Diabetes Mellitus, Position Statement from the [place] [employer]. ??Diabetes Care, Volume 33, Supplement 1, Aug 2009 Blood Urea Nitrogen 31(H) 8 - 18 mg/dL [facility] Creatinine 1.03 0.70 - 1.20 mg/dL [facility] Sodium 145 135 - 145 mmol/L [facility] questions. Chloride 109(H) 98 - 107 mmol/L [facility] Carbon Dioxide 27 22 - 31 mmol/L [facility] Anion Gap 9 5 - 15 mmol/L [facility] Calcium 8.8 8.5 - 10.5 mg/dL [facility] Est Glomerular Filtration Rate 61 >=60 mL/min/1. 73 m?? [facility] Comment: The eGFR was calculated using the CKD-EPI equation. As with all creatinine based estimates of kidney function, eGFR values calculated with the CKD-EPI equation are not accurate in patients with acute kidney failure, extremes of body mass or the acutely ill. [email or web address] eGFR 70 >=60 mL/min/1. 73 m?? [facility] Comment: The eGFR was calculated using the CKD-EPI equation. As with all creatinine based estimates of kidney function, eGFR values calculated with the CKD-EPI equation are not accurate in patients with acute kidney failure, extremes of body mass or the acutely ill. [email or web address] Blood specimen (specimen) 11/16/2018 2:25 AM EDT 11/16/2018 2:37 AM EDT Narrative Resulting Agency Comment Spec In Lab Vivian Valdez Jr., MD CHEMISTRY ORDERA BLES Performing Organization Address [facility] Co de Phone Number [facility] [place] [address] * POCT Glucose (11/16/2018 12:51 AM EDT) Glucose, POC 132 65 - 199 mg/dL [facility] Comment: Supplemental ranges: <140 mg/dL before meals <180 mg/dL all other times of the day Blood specimen (specimen) 11/16/2018 12:51 AM EDT 11/16/2018 12:51 AM EDT Vivian Valdez Jr., MD POINT OF CARE TE ST ORDERABLES Performing Organization Address [facility] Co de Phone Number [facility] [place] [address] * (ABNORMAL) BLOOD GAS 2 ARTERIAL (11/15/2018 10:47 PM EDT) pH, Arterial 7.44 7.35 - 7.45 [facility] PCO2, Arterial 43 35 - 45 mmHg [facility] PO2, Arterial 65(L) 85 - 104 mmHg [facility] Bicarbonate, Arterial 28.3(H) 20.0 - 26.0 mmol/L [facility] Base Excess, Arterial 4.3(H) -3.0 - 3.0 mmol/L [facility] Hgb Blood Gas 9.5(L) 11.7 - 15.5 gm/dL [facility] Oxyhemoglobin, Arterial 91.6(L) 94.0 - 97.0 % [facility] Carboxyhemoglob in, Arterial 0.3 % [facility] Comment: Nonsmokers: 0.5-1.5% COHB Smokers: Variable, but usually less than 10% Toxic: 20-30% COHB Lethal: Greater than 60% COHB Methemoglobin, Arterial 0.2 <=1.5 % [facility] Na Whole Blood 141 135 - 145 mmol/L [facility] K Whole Blood 4.5 3.5 - 5.0 mmol/L [facility] Comment: Please note: Patients with WBC >100,000 may have falsely elevated Potassium levels. Contact the Clinical Chemistry Laboratory if there are any questions. ICa Whole Blood 1.19 1.15 - 1.33 mmol/L [facility] Comment: Note: ??Total bilirubin higher than 20 mg/dL may lead to falsely low ionized calcium. CL Whole Blood 110(H) 98 - 107 mmol/L [facility] Gluc Whole Bld 120 65 - 199 mg/dL [facility] Comment:Diabetes: >=200 mg/d L plus symptoms. Lactate WB 1.5 0.5 - 2.2 mmol/L [facility] FIO2 Art 35 % [facility] PF Ratio Art 186 [facility] Temp Art 37.7 Celsius [facility] Blood specimen (specimen) 11/15/2018 10:47 PM EDT 11/15/2018 10:47 PM EDT Vivian Valdez Jr., MD POINT OF CARE TE ST ORDERABLES [facility] [place] [address] * POCT Glucose (11/15/2018 9:20 PM EDT) Glucose, POC 121 65 - 199 mg/dL [facility] Comment: Supplemental ranges: <140 mg/dL before meals <180 mg/dL all other times of the day Blood specimen (specimen) 11/15/2018 9:20 PM EDT 11/15/2018 9:20 PM EDT Vivian Valdez Jr., MD POINT OF CARE TE ST ORDERABLES Performing Organization Address City/[facility]/ZIP Co de Phone Number [facility] [place] [place] [address] * POCT Glucose (11/15/2018 3:19 PM EDT) Glucose, POC 116 65 - 199 mg/dL [facility] Comment: Supplemental ranges: <140 mg/dL before meals <180 mg/dL all other times of the day Blood specimen (specimen) 11/15/2018 3:19 PM EDT 11/15/2018 3:19 PM EDT Vivian Valdez Jr., MD POINT OF CARE [employer] ST ORDERABLES Performing Organization Address [facility] Co de Phone Number [facility] [place] [place] [address] * POCT Glucose (11/15/2018 11:40 AM EDT) Glucose, POC 105 65 - 199 mg/dL [facility] Comment: Supplemental ranges: <140 mg/dL before meals <180 mg/dL all other times of the day Blood specimen (specimen) 11/15/2018 11:40 AM EDT 11/15/2018 11:40 AM EDT Vivian Valdez Jr., MD POINT OF CARE TE ST ORDERABLES Performing Organization Address City/[facility]/ZIP Co de Phone Number [facility] [place] [place] [address] * Methylmalonic acid, serum (11/15/2018 9:50 AM EDT) [facility] Methylmalonic Acid (MAY) 0.29 <=0.40 nmol/mL [facility] Comment: ADDITIONAL INFORMATION This test was developed and its performance characteristics determined by [facility] in a manner consistent with CLIA requirements. This test has not been cleared or approved by the U.S. Food and Drug Administration. Test Performed by: [address] [address] Blood specimen (specimen) Venous Draw / Unknown 11/15/2018 9:50 AM EDT 11/17/2018 9:05 AM EDT Narrative Resulting Agency Comment Spec In Lab Natali Kingston MD LAB SEND OUT ORDERA BLES Performing Organization Address [facility]/ZIP Co de Phone Number [facility] [place] [place] [address] * (ABNORMAL) Folate, serum (11/15/2018 9:50 AM EDT) [facility] Folate 3.1(L) 4.8 - 24.2 ng/mL [facility] Blood specimen (specimen) 11/15/2018 9:50 AM EDT 11/15/2018 9:55 AM EDT Narrative Resulting Agency Comment Spec In Lab Vivian Valdez Jr., MD CHEMISTRY ORDERA BLES Performing Organization Address [facility]/ZIP Co de Phone Number [facility] [place] [place] [address] * (ABNORMAL) Reticulocyte Count (11/15/2018 9:50 AM EDT) [facility] Reticulocyte % 1.3 0.7 - 2.5 % [facility] Retic Abs # 0.040 0.020 - 0.110 x10(6)/mcL [facility] Immature Retic% 29.1(H) 0.5 - 13.8 % [facility] Reticulated Hgb 22.9(L) 29.8 - 39.4 pg [facility] Blood specimen (specimen) 11/15/2018 9:50 AM EDT 11/15/2018 9:55 AM EDT Narrative Resulting Agency Comment Spec In Lab Vivian Valdez Jr., MD HEMATOLOGY ORDER DAMARIS Performing Organization Address City/[facility] Co de Phone Number [facility] [place] [place] [address] * Vitamin B12 (11/15/2018 9:50 AM EDT) [facility] Vitamin B12 237 232 - 1,245 pg/mL [facility] Blood specimen (specimen) 11/15/2018 9:50 AM EDT 11/15/2018 9:55 AM EDT Narrative Resulting Agency Comment Spec In Lab Vivian Valdez Jr., MD CHEMISTRY EUGENIA ZALDIVAR Performing Organization Address [facility] Co de Phone Number [facility] [place] [place] [address] * (ABNORMAL) Ferritin (11/15/2018 9:50 AM EDT) [facility] Ferritin 502(H) 30 - 400 ng/mL [facility] Comment: Pediatric reference ranges not verified at [facility], interpret with caution. Reference ranges for females greater than 50 years of age approach values for men, i.e., 30-400 ng/mL. Blood specimen (specimen) 11/15/2018 9:50 AM EDT 11/15/2018 9:55 AM EDT Narrative Resulting Agency Comment Spec In Lab Vivian Valdez Jr., MD CHEMISTRY EUGENIA ZALDIVAR Performing Organization Address [facility] Co de Phone Number [facility] [place] [place] [address] * (ABNORMAL) Iron and TIBC (11/15/2018 9:50 AM EDT) [facility] Signature Iron 31 30 - 150 mcg/dL [facility] TIBC 214(L) 250 - 450 mcg/dL [facility] Iron Saturation 14(L) 20 - 50 % [facility] Blood specimen (specimen) 11/15/2018 9:50 AM EDT 11/15/2018 9:55 AM EDT Narrative Resulting Agency Comment Spec In Lab Vivian Valdez Jr., MD CHEMISTRY ORDERA BLES Performing Organization Address [facility] de Phone Number [facility] [place] [place] [address] * POCT Glucose (11/15/2018 7:45 AM EDT) [facility] Glucose, POC 118 65 - 199 mg/dL [facility] Comment: Supplemental ranges: <140 mg/dL before meals <180 mg/dL all other times of the day Blood specimen (specimen) 11/15/2018 7:45 AM EDT 11/15/2018 7:45 AM EDT Vivian Valdez Jr., MD POINT OF CARE TE ST ORDERABLES Performing Organization Address [facility] Phone Number [facility] [place] [address] * (ABNORMAL) BLOOD GAS 2 ARTERIAL (11/15/2018 6:13 AM EDT) [facility] pH, Arterial 7.29(Criti nanette) 7.35 - 7.45 [facility] Comment:Noted by teacher instrumental. PCO2, Arterial 57(H) 35 - 45 mmHg [facility] PO2, Arterial 84(L) 85 - 104 mmHg [facility] Bicarbonate, Arterial 26.5(H) 20.0 - 26.0 mmol/L [facility] Base Excess, Arterial -0.1 -3.0 - 3.0 mmol/L [facility] Hgb Blood Gas 9.7(L) 11.7 - 15.5 gm/dL [facility] Oxyhemoglobin, Arterial 94.5 94.0 - 97.0 % [facility] Carboxyhemoglob in, Arterial 0.1 % [facility] Comment: Nonsmokers: 0.5-1.5% COHB Smokers: Variable, but usually less than 10% Toxic: 20-30% COHB Lethal: Greater than 60% COHB Methemoglobin, Arterial 0.4 <=1.5 % [facility] Na Whole Blood 143 135 - 145 mmol/L [facility] K Whole Blood 4.6 3.5 - 5.0 mmol/L [facility] Comment: Please note: Patients with WBC >100,000 may have falsely elevated Potassium levels. Contact the Clinical Chemistry Laboratory if there are any questions. ICa Whole Blood 1.20 1.15 - 1.33 mmol/L [facility] Comment: Note: ??Total bilirubin higher than 20 mg/dL may lead to falsely low ionized calcium. CL Whole Blood 111(H) 98 - 107 mmol/L [facility] Gluc Whole Bld 107 65 - 199 mg/dL [facility] Comment:Diabetes: >=200 mg/d L plus symptoms. Lactate WB 1.3 0.5 - 2.2 mmol/L [facility] FIO2 Art 40 % [facility] PF Ratio Art 210 [facility] Blood specimen (specimen) 11/15/2018 6:13 AM EDT 11/15/2018 6:13 AM EDT Vivian Valdez Jr., MD POINT OF CARE TE ST ORDERABLES [facility] [place] [address] * POCT Glucose (11/15/2018 3:53 AM EDT) Glucose, POC 120 65 - 199 mg/dL [facility] Comment: Supplemental ranges: <140 mg/dL before meals <180 mg/dL all other times of the day Blood specimen (specimen) 11/15/2018 3:53 AM EDT 11/15/2018 3:53 AM EDT Vivian Valdez Jr., MD POINT OF CARE TE ST ORDERABLES [facility] [place] [address] * (ABNORMAL) Differential, Automated (11/15/2018 12:35 AM EDT) Neutrophil % 72.9 % [facility] Neutrophil Absolute 8.37(H) 1.70 - 6.10 x10(3)/[facility] Lymph % 18.4 % [facility] Lymphocytes Abs 2.1 0.9 - 3.2 x10(3)/[facility] Monocyte % 7.8 % [facility] Monocyte Abs 0.9 0.3 - 0.9 x10(3)/[facility] Eos % 0.0 % [facility] Eosinophils Abs 0.0 0.0 - 0.4 x10(3)/[facility] Basophil % 0.1 % [facility] Baso Absolute 0.0 0.0 - 0.1 x10(3)/[facility] Immature Gran % 0.80 % [facility] Comment: Immature granulocytes(IG's)percentage and absolute count will include metamyelocytes, myelocytes, and promyelocytes. Blood smears from CBCs yielding IG's will be scanned manually for concordance. If this scan disagrees with the automated IG or if promyelocytes are noted, a manual differential will be performed. Immature Gran Absolute 0.09(H) 0.00 - 0.04 x10(3)/[facility] Blood specimen (specimen) 11/15/2018 12:35 AM EDT 11/15/2018 12:48 AM EDT Narrative Resulting Agency Comment Spec In Lab Kelly Bermudez MD HEMATOLOGY ORDERABLE S [facility] [place] [place] [address] * (ABNORMAL) Hemogram (11/15/2018 12:35 AM EDT) White Blood Cell 11.5(H) 4.0 - 9.5 x10(3)/mc L [facility] Red Blood Cell 3.29(L) 4.00 - 5.21 x10(6)/mc L [facility] Hemoglobin 8.9(L) 11.7 - 15.5 gm/dL [facility] Hematocrit 29.6(L) 35.7 - 45.8 % [facility] Mean Cell Volume 90.0 82.6 - 94.4 fL [facility] Mean Cell Hemoglobin 27.1 27.1 - 32.0 pg [facility] Mean Cell Hemoglobin Concentration 30.1(L) 31.7 - 35.0 gm/dL [facility] Platelet 190 145 - 357 x10(3)/mc L [facility] RDW Standard Deviation 55.0(H) 37.0 - 46.0 fL [facility] RDW coefficient of variation 16.8(H) 11.5 - 14.1 % [facility] Mean Platelet Volume 11.4 7.6 - 12.9 fL [facility] NRBC% auto 0.0 % [facility] NRBC Absolute 0.000 0.000 - 0.000 x10(3)/mc L [facility] Blood specimen (specimen) 11/15/2018 12:35 AM EDT 11/15/2018 12:48 AM EDT Narrative Resulting Agency Comment Spec In Lab Kelly Bermudez MD HEMATOLOGY ORDERABLE S [facility] [place] [place] [address] * (ABNORMAL) BMP w/fasting Glucose (11/15/2018 12:35 AM EDT) [facility] Signature Glucose Fasting 121(H) 65 - 99 mg/dL [facility] Comment: ?Fasting* Glucose Interpretive Criteria Normal [...] of Diabetes Mellitus, Position Statement from the [place] [employer]. ??Diabetes Care, Volume 33, Supplement 1, Aug 2009 Blood Urea Nitrogen 30(H) 8 - 18 mg/dL [facility] Creatinine 1.45(H) 0.70 - 1.20 mg/dL [facility] Sodium 144 135 - 145 mmol/L [facility] questions. Chloride 107 98 - 107 mmol/L [facility] Carbon Dioxide 25 22 - 31 mmol/L [facility] Anion Gap 12 5 - 15 mmol/L [facility] Calcium 8.7 8.5 - 10.5 mg/dL [facility] Est Glomerular Filtration Rate 40(L) >=60 mL/min/1. 73 m?? [facility] Comment: The eGFR was calculated using the CKD-EPI equation. As with all creatinine based estimates of kidney function, eGFR values calculated with the CKD-EPI equation are not accurate in patients with acute kidney failure, extremes of body mass or the acutely ill. [email or web address] eGFR 47(L) >=60 mL/min/1. 73 m?? [facility] Comment: The eGFR was calculated using the CKD-EPI equation. As with all creatinine based estimates of kidney function, eGFR values calculated with the CKD-EPI equation are not accurate in patients with acute kidney failure, extremes of body mass or the acutely ill. [email or web address] Blood specimen (specimen) 11/15/2018 12:35 AM EDT 11/15/2018 12:48 AM EDT Narrative Resulting Agency Comment Spec In Lab Vivian Valdez Jr., MD CHEMISTRY ORDERA BLES Performing Organization Address [facility] Co de Phone Number [facility] [place] [place] [address] * POCT Glucose (11/15/2018 12:34 AM EDT) Glucose, POC 126 65 - 199 mg/dL [facility] Comment: Supplemental ranges: <140 mg/dL before meals <180 mg/dL all other times of the day Blood specimen (specimen) 11/15/2018 12:34 AM EDT 11/15/2018 12:34 AM EDT Vivian Valdez Jr., MD POINT OF CARE TE ST ORDERABLES [facility] [place] [address] * POCT Glucose (11/14/2018 7:54 PM EDT) Glucose, POC 128 65 - 199 mg/dL [facility] Comment: Supplemental ranges: <140 mg/dL before meals <180 mg/dL all other times of the day Blood specimen (specimen) 11/14/2018 7:54 PM EDT 11/14/2018 7:54 PM EDT Vivian Valdez Jr., MD POINT OF CARE TE ST ORDERABLES [facility] [place] [address] * (ABNORMAL) BLOOD GAS 2 ARTERIAL (11/14/2018 4:59 PM EDT) pH, Arterial 7.22(Criti nanette) 7.35 - 7.45 [facility] Comment:Noted by teacher instrumental. PCO2, Arterial 63(Critica l) 35 - 45 mmHg [facility] Comment:Noted by teacher instrumental. PO2, Arterial 72(L) 85 - 104 mmHg [facility] Bicarbonate, Arterial 25.4 20.0 - 26.0 mmol/L [facility] Base Excess, Arterial -2.2 -3.0 - 3.0 mmol/L [facility] Hgb Blood Gas 10.4(L) 11.7 - 15.5 gm/dL [facility] Oxyhemoglobin, Arterial 91.7(L) 94.0 - 97.0 % [facility] Carboxyhemoglob in, Arterial 0.3 % [facility] Comment: Nonsmokers: 0.5-1.5% COHB Smokers: Variable, but usually less than 10% Toxic: 20-30% COHB Lethal: Greater than 60% COHB Methemoglobin, Arterial 0.3 <=1.5 % [facility] Na Whole Blood 142 135 - 145 mmol/L [facility] K Whole Blood 4.7 3.5 - 5.0 mmol/L [facility] Comment: Please note: Patients with WBC >100,000 may have falsely elevated Potassium levels. Contact the Clinical Chemistry Laboratory if there are any questions. ICa Whole Blood 1.18 1.15 - 1.33 mmol/L [facility] Comment: Note: ??Total bilirubin higher than 20 mg/dL may lead to falsely low ionized calcium. CL Whole Blood 109(H) 98 - 107 mmol/L [facility] Gluc Whole Bld 135 65 - 199 mg/dL [facility] Comment:Diabetes: >=200 mg/d L plus symptoms. Lactate WB 1.2 0.5 - 2.2 mmol/L [facility] FIO2 Art 40 % [facility] PF Ratio Art 180 [facility] Blood specimen (specimen) 11/14/2018 4:59 PM EDT 11/14/2018 4:59 PM EDT Vivian Valdez Jr., MD POINT OF CARE TE ST ORDERABLES [facility] [place] [address] * POCT Glucose (11/14/2018 4:18 PM EDT) Glucose, POC 131 65 - 199 mg/dL [facility] Comment: Supplemental ranges: <140 mg/dL before meals <180 mg/dL all other times of the day Blood specimen (specimen) 11/14/2018 4:18 PM EDT 11/14/2018 4:18 PM EDT Vivian Valdez Jr., MD POINT OF CARE TE ST ORDERABLES Performing Organization Address City/[facility]/ZIP Co de Phone Number [facility] [place] [place] [address] * POCT Glucose (11/14/2018 12:08 PM EDT) Glucose, POC 164 65 - 199 mg/dL [facility] Comment: Supplemental ranges: <140 mg/dL before meals <180 mg/dL all other times of the day Blood specimen (specimen) 11/14/2018 12:08 PM EDT 11/14/2018 12:08 PM EDT Vivian Valdez Jr., MD POINT OF CARE TE ST ORDERABLES Performing Organization Address City/[facility]/ZIP Co de Phone Number [facility] [place] [address] * (ABNORMAL) BLOOD GAS 2 ARTERIAL (11/14/2018 10:26 AM EDT) pH, Arterial 7.21(Criti nanette) 7.35 - 7.45 [facility] PCO2, Arterial 60(H) 35 - 45 mmHg [facility] PO2, Arterial 77(L) 85 - 104 mmHg [facility] Bicarbonate, Arterial 23.5 20.0 - 26.0 mmol/L [facility] Base Excess, Arterial -4.3(L) -3.0 - 3.0 mmol/L [facility] Hgb Blood Gas 10.6(L) 11.7 - 15.5 gm/dL [facility] Oxyhemoglobin, Arterial 92.7(L) 94.0 - 97.0 % [facility] Carboxyhemoglob in, Arterial 0.2 % [facility] Comment: Nonsmokers: 0.5-1.5% COHB Smokers: Variable, but usually less than 10% Toxic: 20-30% COHB Lethal: Greater than 60% COHB Methemoglobin, Arterial 0.3 <=1.5 % [facility] Na Whole Blood 141 135 - 145 mmol/L [facility] K Whole Blood 4.9 3.5 - 5.0 mmol/L [facility] Comment: Please note: Patients with WBC >100,000 may have falsely elevated Potassium levels. Contact the Clinical Chemistry Laboratory if there are any questions. ICa Whole Blood 1.19 1.15 - 1.33 mmol/L [facility] Comment: Note: ??Total bilirubin higher than 20 mg/dL may lead to falsely low ionized calcium. CL Whole Blood 108(H) 98 - 107 mmol/L [facility] Gluc Whole Bld 179 65 - 199 mg/dL [facility] Comment:Diabetes: >=200 mg/d L plus symptoms. Lactate WB 1.1 0.5 - 2.2 mmol/L [facility] FIO2 Art 50 % [facility] PF Ratio Art 154 [facility] Blood specimen (specimen) 11/14/2018 10:26 AM EDT 11/14/2018 10:26 AM EDT Vivian Valdez Jr., MD POINT OF CARE ST ORDERABLES Performing Organization Address [facility]/ZIP Co de Phone Number [facility] [place] [address] * POCT Glucose (11/14/2018 8:51 AM EDT) Pathologist [facility] Glucose, POC 181 65 - 199 mg/dL [facility] Comment: Supplemental ranges: <140 mg/dL before meals <180 mg/dL all other times of the day Blood specimen (specimen) 11/14/2018 8:51 AM EDT 11/14/2018 8:51 AM EDT Vivian Valdez Jr., MD POINT OF CARE ST ORDERABLES Performing Organization Address [facility] Co de Phone Number [facility] [place] [address] * Scan, Peripheral Blood (11/14/2018 8:50 AM EDT) [facility] Plat estimate Normal [facility] RBC Morphology Abnormal [facility] Hypochromia Slight [facility] Cuero Cells 1-5 /HPF [facility] Blood specimen (specimen) 11/14/2018 8:50 AM EDT 11/14/2018 8:57 AM EDT Narrative Resulting Agency Comment Spec In Lab Kelly Bermudez MD HEMATOLOGY ORDERABLE S Performing Organization Address [facility] Co de Phone Number [facility] [place] [place] [address] * (ABNORMAL) Differential, Automated (11/14/2018 8:50 AM EDT) [facility] Neutrophil % 83.3 % [facility] Neutrophil Absolute 12.67(H) 1.70 - 6.10 x10(3)/mc L [facility] Lymph % 10.1 % [facility] Lymphocytes Abs 1.5 0.9 - 3.2 x10(3)/[facility] Monocyte % 5.9 % [facility] Monocyte Abs 0.9 0.3 - 0.9 x10(3)/[facility] Eos % 0.0 % [facility] Eosinophils Abs 0.0 0.0 - 0.4 x10(3)/[facility] Basophil % 0.1 % [facility] Baso Absolute 0.0 0.0 - 0.1 x10(3)/[facility] Immature Gran % 0.60 % [facility] Comment: Immature granulocytes(IG's)percentage and absolute count will include metamyelocytes, myelocytes, and promyelocytes. Blood smears from CBCs yielding IG's will be scanned manually for concordance. If this scan disagrees with the automated IG or if promyelocytes are noted, a manual differential will be performed. Immature Gran Absolute 0.09(H) 0.00 - 0.04 x10(3)/[facility] Blood specimen (specimen) 11/14/2018 8:50 AM EDT 11/14/2018 8:57 AM EDT Narrative Resulting Agency Comment Spec In Lab Kelly Bermudez MD HEMATOLOGY ORDERABLE S [facility] [place] [place] [address] * (ABNORMAL) Hemogram (11/14/2018 8:50 AM EDT) White Blood Cell 15.2(H) 4.0 - 9.5 x10(3)/[facility] Red Blood Cell 3.46(L) 4.00 - 5.21 x10(6)/[facility] Hemoglobin 9.3(L) 11.7 - 15.5 gm/dL [facility] Hematocrit 31.2(L) 35.7 - 45.8 % [facility] Mean Cell Volume 90.2 82.6 - 94.4 fL [facility] Mean Cell Hemoglobin 26.9(L) 27.1 - 32.0 pg [facility] Mean Cell Hemoglobin Concentration 29.8(L) 31.7 - 35.0 gm/dL [facility] Platelet 247 145 - 357 x10(3)/mc L [facility] RDW Standard Deviation 55.4(H) 37.0 - 46.0 fL [facility] RDW coefficient of variation 16.7(H) 11.5 - 14.1 % [facility] Mean Platelet Volume 11.5 7.6 - 12.9 fL [facility] NRBC% auto 0.0 % [facility] NRBC Absolute 0.000 0.000 - 0.000 x10(3)/mc L [facility] Blood specimen (specimen) 11/14/2018 8:50 AM EDT 11/14/2018 8:57 AM EDT Narrative Resulting Agency Comment Spec In Lab Kelly Bermudez MD HEMATOLOGY ORDERABLE S Performing Organization Address City/State/[facility] Co de Phone Number [facility] [place] [place] [address] * (ABNORMAL) BLOOD GAS 2 ARTERIAL (11/14/2018 5:22 AM EDT) pH, Arterial 7.13(Criti nanette) 7.35 - 7.45 [facility] PCO2, Arterial 71(Critica l) 35 - 45 mmHg [facility] PO2, Arterial 79(L) 85 - 104 mmHg [facility] Bicarbonate, Arterial 23.0 20.0 - 26.0 mmol/L [facility] Base Excess, Arterial -6.2(L) -3.0 - 3.0 mmol/L [facility] Hgb Blood Gas 11.1(L) 11.7 - 15.5 gm/dL [facility] Oxyhemoglobin, Arterial 91.6(L) 94.0 - 97.0 % [facility] Carboxyhemoglob in, Arterial 0.5 % [facility] Comment: Nonsmokers: 0.5-1.5% COHB Smokers: Variable, but usually less than 10% Toxic: 20-30% COHB Lethal: Greater than 60% COHB Methemoglobin, Arterial 0.3 <=1.5 % [facility] Na Whole Blood 141 135 - 145 mmol/L [facility] K Whole Blood 4.8 3.5 - 5.0 mmol/L [facility] Comment: Please note: Patients with WBC >100,000 may have falsely elevated Potassium levels. Contact the Clinical Chemistry Laboratory if there are any questions. ICa Whole Blood 1.20 1.15 - 1.33 mmol/L [facility] Comment: Note: ??Total bilirubin higher than 20 mg/dL may lead to falsely low ionized calcium. CL Whole Blood 108(H) 98 - 107 mmol/L [facility] Gluc Whole Bld 193 65 - 199 mg/dL [facility] Comment:Diabetes: >=200 mg/d L plus symptoms. Lactate WB 0.9 0.5 - 2.2 mmol/L [facility] FIO2 Art 50 % [facility] PF Ratio Art 158 [facility] Blood specimen (specimen) 11/14/2018 5:22 AM EDT 11/14/2018 5:22 AM EDT Vivian Valdez Jr., MD POINT OF CARE TE ST ORDERABLES [facility] [place] [address] * (ABNORMAL) Basic Metabolic Panel (non-fasting) (11/14/2018 5:20 AM EDT) Glucose 186 65 - 199 mg/dL [facility] Comment:Diabetes: >=200 mg/d L plus symptoms Blood Urea Nitrogen 24(H) 8 - 18 mg/dL [facility] Creatinine 1.30(H) 0.70 - 1.20 mg/dL [facility] Sodium 143 135 - 145 mmol/L [facility] Potassium 4.9 3.5 - 5.0 mmol/L [facility] Comment: Please note: ??Patients with WBC >100,000 may have falsely elevated Potassium levels. ??For accurate Potassium quantification in these patients send serum separator tube (gold top) for subsequent determinations. ??Contact the Clinical Chemistry Laboratory if there are any questions. Chloride 108(H) 98 - 107 mmol/L [facility] Carbon Dioxide 23 22 - 31 mmol/L [facility] Anion Gap 12 5 - 15 mmol/L [facility] Calcium 8.3(L) 8.5 - 10.5 mg/dL [facility] Est Glomerular Filtration Rate 46(L) >=60 mL/min/1. 73 m?? [facility] Comment: The eGFR was calculated using the CKD-EPI equation. As with all creatinine based estimates of kidney function, eGFR values calculated with the CKD-EPI equation are not accurate in patients with acute kidney failure, extremes of body mass or the acutely ill. [email or web address] eGFR 53(L) >=60 mL/min/1. 73 m?? [facility] Comment: The eGFR was calculated using the CKD-EPI equation. As with all creatinine based estimates of kidney function, eGFR values calculated with the CKD-EPI equation are not accurate in patients with acute kidney failure, extremes of body mass or the acutely ill. [email or web address] Blood specimen (specimen) 11/14/2018 5:20 AM EDT 11/14/2018 5:32 AM EDT Narrative Resulting Agency Comment Spec In Lab Vivian Valdez Jr., MD CHEMISTRY ORDERA [facility] Organization Address City/State/ZIP Co de Phone Number [facility] [place] [place] [address] * POCT Glucose (11/14/2018 2:33 AM EDT) [facility] Glucose, POC 192 65 - 199 mg/dL [facility] Comment: Supplemental ranges: <140 mg/dL before meals <180 mg/dL all other times of the day Blood specimen (specimen) 11/14/2018 2:33 AM EDT 11/14/2018 2:33 AM EDT Vivian Valdez Jr., MD POINT OF CARE TE ST ORDERABLES Performing Organization Address City/[facility]/ZIP Co de Phone Number [facility] [place] [address] * Blood culture (11/14/2018 1:43 AM EDT) [facility] Blood Culture No growth at 5 days. [facility] Blood specimen (specimen) 11/14/2018 1:43 AM EDT 11/14/2018 2:12 AM EDT Comment:NEW A LINE Narrative Resulting Agency Comment Spec In Lab Vivian Valdez Jr., MD MICROBIOLOGY - B LOOD ORDERABLES Performing Organization Address [facility]/ZIP Co de Phone Number [facility] [place] [address] * (ABNORMAL) BLOOD GAS 2 ARTERIAL (11/14/2018 1:40 AM EDT) [facility] pH, Arterial 7.08(Criti nanette) 7.35 - 7.45 [facility] Comment:Noted by teacher instrumental. PCO2, Arterial 77(Critica l) 35 - 45 mmHg [facility] Comment:Noted by teacher instrumental. PO2, Arterial 114(H) 85 - 104 mmHg [facility] Bicarbonate, Arterial 22.4 20.0 - 26.0 mmol/L [facility] Base Excess, Arterial -7.6(L) -3.0 - 3.0 mmol/L [facility] Hgb Blood Gas 11.4(L) 11.7 - 15.5 gm/dL [facility] Oxyhemoglobin, Arterial 96.0 94.0 - 97.0 % [facility] Carboxyhemoglob in, Arterial 0.1 % [facility] Comment: Nonsmokers: 0.5-1.5% COHB Smokers: Variable, but usually less than 10% Toxic: 20-30% COHB Lethal: Greater than 60% COHB Methemoglobin, Arterial 0.4 <=1.5 % [facility] Na Whole Blood 141 135 - 145 mmol/L [facility] K Whole Blood 4.4 3.5 - 5.0 mmol/L [facility] Comment: Please note: Patients with WBC >100,000 may have falsely elevated Potassium levels. Contact the Clinical Chemistry Laboratory if there are any questions. ICa Whole Blood 1.21 1.15 - 1.33 mmol/L [facility] Comment: Note: ??Total bilirubin higher than 20 mg/dL may lead to falsely low ionized calcium. CL Whole Blood 108(H) 98 - 107 mmol/L [facility] Gluc Whole Bld 196 65 - 199 mg/dL [facility] Comment:Diabetes: >=200 mg/d L plus symptoms. Lactate WB 0.8 0.5 - 2.2 mmol/L [facility] FIO2 Art 80 % [facility] PF Ratio Art 142 [facility] Blood specimen (specimen) 11/14/2018 1:40 AM EDT 11/14/2018 1:40 AM EDT Vivian Valdez Jr., MD POINT OF CARE TE ST ORDERABLES [facility] [place] [address] * Urea nitrogen, urine, random (11/13/2018 11:50 PM EDT) Urea Nitrogen, Urine 168 mg/dL [facility] Urine specimen (specimen) Urine / Unknown 11/13/2018 11:50 PM EDT 11/14/2018 Narrative Resulting Agency Comment Spec In Lab Natali Kingston MD URINE ORDERABLES Performing Organization Address City/[facility] Co de Phone Number [facility] [place] [address] * Creatinine, urine, random (11/13/2018 11:50 PM EDT) Creatinine, Urine 59 mg/dL [facility] Urine specimen (specimen) Urine / Unknown 11/13/2018 11:50 PM EDT 11/14/2018 Narrative Resulting Agency Comment Spec In Lab Natali Kingston MD URINE ORDERABLES Performing Organization Address [facility] Co de Phone Number [facility] [place] [address] * Electrolytes, urine, random (11/13/2018 11:50 PM EDT) Sodium, Urine 38 mmol/L [facility] Potassium, Urine 40 mmol/L [facility] Chloride, Urine 48 mmol/L [facility] Urine specimen (specimen) Urine / Unknown 11/13/2018 11:50 PM EDT 11/14/2018 Narrative Resulting Agency Comment Spec In Lab Natali Kingston MD URINE ORDERABLES Performing Organization Address [facility] Co de Phone Number [facility] [place] [address] * Legionella Urinary Antigen (11/13/2018 11:50 PM EDT) Legionella Urinary Antigen Negative Negative [facility] Comment: A negative Legionella Urinary [...] - G ENERAL ORDERABLES Performing Organization Address [facility] Co de Phone Number [facility] [place] [address] * (ABNORMAL) Urinalysis Microscopic Exam (11/13/2018 11:39 PM EDT) RBC, Urine 28(H) 0 - 4 /HPF [facility] WBC, Urine 2 0 - 5 /HPF [facility] Urine specimen obtained via indwelling urinary catheter (specimen) 11/13/2018 11:39 PM EDT 11/13/2018 11:58 PM EDT Narrative Resulting Agency Comment Spec In Lab Natali Kingston MD URINE ORDERABLES Performing Organization Address [facility] Co de Phone Number [facility] [place] [place] [address] * (ABNORMAL) Urinalysis with reflex Culture (11/13/2018 11:39 PM EDT) Glucose, Urine Dipstick Negative Negative mg/dL [facility] Protein, Urine Dipstick 30(A) Negative mg/dL [facility] Bilirubin, Urine Dipstick Negative Negative mg/dL [facility] Comment: Clinical correlation required for positive Urine Bilirubin results as false positive may occur with some drugs and drug related products. If a false positive is suspected a serum total bilirubin should be considered if clinically indicated. Urobilinogen, Urine Dipstick Normal Normal mg/dL [facility] pH, Urn (dipstick) 5.0 5.0 - 8.0 [facility] Blood, Urine Dipstick Moderate(A) Negative mg/dL [facility] Ketone, Urine Dipstick Negative Negative mg/dL [facility] Nitrite, Urine Dipstick Negative Negative [facility] Leukocytes, Urine Dipstick Negative Negative [facility] Appearance, Urine Dipstick Clear Clear [facility] Specific [place] Urine Automated 1.016 1.002 - 1.030 [facility] [facility] Color, Urine Dipstick Yellow Yellow [facility] Reflex to Culture No [facility] Urine specimen obtained via indwelling urinary catheter (specimen) 11/13/2018 11:39 PM EDT 11/13/2018 11:58 PM EDT Narrative Resulting Agency Comment Spec In Lab Vivian Valdez Jr., MD URINE ORDERABLES Performing Organization Address [facility] Co de Phone Number [facility] [place] [place] [address] * EKG 12 Lead (11/13/2018 11:11 PM EDT) Ventricular rate 61 BPM MUSE SYSTEM Atrial Rate 61 BPM MUSE SYSTEM P-R Interval 140 ms MUSE SYSTEM QRS Duration 106 ms MUSE SYSTEM Q-T Interval 450 ms MUSE SYSTEM QTC Calculated (Bezet) 453 ms MUSE SYSTEM Calculated P O'Brien 3 degrees MUSE SYSTEM Calculated R O'Brien 61 degrees MUSE SYSTEM Calculated T O'Brien 70 degrees MUSE SYSTEM INTERPRETATION Normal sinus rhythm RSR' or QR pattern in V1 suggests right ventricular conduction delay Nonspecific ST abnormality Abnormal ECG No previous ECGs available Confirmed by MD Rick, Eran Levi ([id number]) on 11/14/2018 9:48:29 AM MUSE SYSTEM 11/13/2018 11:1 1 PM EDT 11/14/2018 9:48 AM EDT Vivian Valdez Jr., MD ECG ORDERABLES Performing Organization Address City/[facility] Co de Phone Number MUSE SYSTEM * Blood culture (11/13/2018 10:40 PM EDT) Blood Culture No growth at 5 days. [facility] Blood specimen (specimen) 11/13/2018 10:40 PM EDT 11/13/2018 11:20 PM EDT Comment:L AC Narrative Resulting Agency Comment Spec In Lab Vivian Valdez Jr., MD MICROBIOLOGY - B LOOD ORDERABLES [facility] [place] [address] * (ABNORMAL) BLOOD GAS 2 ARTERIAL (11/13/2018 10:21 PM EDT) pH, Arterial 7.22(Criti nanette) 7.35 - 7.45 [facility] Comment:Noted by teacher instrumental. PCO2, Arterial 53(H) 35 - 45 mmHg [facility] PO2, Arterial 98 85 - 104 mmHg [facility] Bicarbonate, Arterial 21.0 20.0 - 26.0 mmol/L [facility] Base Excess, Arterial -6.7(L) -3.0 - 3.0 mmol/L [facility] Hgb Blood Gas 11.1(L) 11.7 - 15.5 gm/dL [facility] Oxyhemoglobin, Arterial 95.5 94.0 - 97.0 % [facility] Carboxyhemoglob in, Arterial 0.4 % [facility] Comment: Nonsmokers: 0.5-1.5% COHB Smokers: Variable, but usually less than 10% Toxic: 20-30% COHB Lethal: Greater than 60% COHB Methemoglobin, Arterial 0.3 <=1.5 % [facility] Na Whole Blood 138 135 - 145 mmol/L [facility] K Whole Blood 4.8 3.5 - 5.0 mmol/L [facility] Comment: Please note: Patients with WBC >100,000 may have falsely elevated Potassium levels. Contact the Clinical Chemistry Laboratory if there are any questions. ICa Whole Blood 1.19 1.15 - 1.33 mmol/L [facility] Comment: Note: ??Total bilirubin higher than 20 mg/dL may lead to falsely low ionized calcium. CL Whole Blood 108(H) 98 - 107 mmol/L [facility] Gluc Whole Bld 198 65 - 199 mg/dL [facility] Comment:Diabetes: >=200 mg/d L plus symptoms. Lactate WB 1.4 0.5 - 2.2 mmol/L [facility] FIO2 Art 100 % [facility] PF Ratio Art 98 [facility] Blood specimen (specimen) 11/13/2018 10:21 PM EDT 11/13/2018 10:21 PM EDT Vivian Valdez Jr., MD POINT OF CARE TE ST ORDERABLES Performing Organization Address City/[facility]/ZIP Co de Phone Number [facility] [place] [place] [address] * LDL Cholesterol, Direct (11/13/2018 10:20 PM EDT) LDL Cholesterol, Direct 73 mg/dL [facility] Comment: Lowest Risk: <100 mg/dL Lower Risk: 100-129 mg/dL Borderline High Risk: 130-159 mg/dL High Risk: 160-189 mg/dL Very High Risk: >jd=638 mg/dL Blood specimen (specimen) 11/13/2018 10:20 PM EDT 11/14/2018 2:44 AM EDT Narrative Resulting Agency Comment Spec In Lab Vivina Valdez Jr., MD CHEMISTRY ORDERA BLES Performing Organization Address [facility]/ZIP Co de Phone Number [facility] [place] [address] * HDL/Cholesterol Profile (11/13/2018 10:20 PM EDT) Cholesterol, Total 143 mg/dL [facility] Comment: Lower Risk: <200 mg/dL Average Risk: 200-239 mg/dL Higher Risk: >fo=974 mg/dL HDL Cholesterol 32 mg/dL [facility] Comment: Males: ?? Higher Risk: <40 mg/dL Females: ?? HIgher Risk: <50 mg/dL Cholesterol/HDL Ratio 4.5 ratio [facility] Chol/HDL Interpretation See Note [facility] Comment: Lipid management should be guided by a patient? s ASCVD risk, goals and preferences. ACC/AHA Guidelines recommend high intensity statin if clinical ASCVD or LDL greater than or equal to 190 mg/dL. http://Edlogicsurl.com/YXA-EDF-Hitjvpsme Measure LDL if Total Cholesterol minus HDL Cholesterol is greater than 220 mg/dL. Adults aged 40-75 with LDL 70-189 mg/dL should have their 10 year ASCVD risk estimated with the ACC/AHA ASCVD risk drapery and upholstery estimator http://tools.acc.org/ORRIT-Utgg-Zqdedywur/ Statin should be discussed if risk greater [...] Vivian Valdez Jr., MD CHEMISTRY ORDERA BLES [facility] [place] [address] * (ABNORMAL) Hemoglobin A1c (11/13/2018 10:20 PM EDT) Hemoglobin A1c 6.2(H) 4.3 - 5.6 % [facility] Comment: Reference Range: 4.3 - 5.6% [...] Mellitus, Diabetes Care 2013; 36: Suppl. 1, A94-88 Estimated Average Glucose 131 mg/dL [facility] Comment: eAG equivalents for HbA1c percentages: [...] into estimated average glucose values. ??Diabetes Care 2008:31(8):8764-3537. Blood specimen (specimen) 11/13/2018 10:20 PM EDT 11/14/2018 3:03 AM EDT Narrative Resulting Agency Comment Spec In Lab Vivian Valdez Jr., MD CHEMISTRY [facility] [place] [address] * (ABNORMAL) Differential, Automated (11/13/2018 10:20 PM EDT) Neutrophil % 85.4 % [facility] Neutrophil Absolute 13.88(H) 1.70 - 6.10 x10(3)/mc L [facility] Lymph % 8.1 % [facility] Lymphocytes Abs 1.3 0.9 - 3.2 x10(3)/mc L [facility] Monocyte % 5.5 % [facility] Monocyte Abs 0.9 0.3 - 0.9 x10(3)/[facility] Eos % 0.0 % [facility] Eosinophils Abs 0.0 0.0 - 0.4 x10(3)/[facility] Basophil % 0.2 % [facility] Baso Absolute 0.0 0.0 - 0.1 x10(3)/[facility] Immature Gran % 0.80 % [facility] Comment: Immature granulocytes(IG's)percentage and absolute count will include metamyelocytes, myelocytes, and promyelocytes. Blood smears from CBCs yielding IG's will be scanned manually for concordance. If this scan disagrees with the automated IG or if promyelocytes are noted, a manual differential will be performed. Immature Gran Absolute 0.13(H) 0.00 - 0.04 x10(3)/[facility] Blood specimen (specimen) 11/13/2018 10:20 PM EDT 11/13/2018 10:35 PM EDT Narrative Resulting Agency Comment Spec In Lab Natali Kingston MD HEMATOLOGY ORDERABL ES [facility] [place] [place] [address] * (ABNORMAL) Hemogram (11/13/2018 10:20 PM EDT) White Blood Cell 16.2(H) 4.0 - 9.5 x10(3)/[facility] Red Blood Cell 3.65(L) 4.00 - 5.21 x10(6)/[facility] Hemoglobin 10.0(L) 11.7 - 15.5 gm/dL [facility] Hematocrit 32.4(L) 35.7 - 45.8 % [facility] Mean Cell Volume 88.8 82.6 - 94.4 fL [facility] Mean Cell Hemoglobin 27.4 27.1 - 32.0 pg [facility] Mean Cell Hemoglobin Concentration 30.9(L) 31.7 - 35.0 gm/dL [facility] Platelet 225 145 - 357 x10(3)/mc L [facility] RDW Standard Deviation 53.9(H) 37.0 - 46.0 fL [facility] RDW coefficient of variation 16.6(H) 11.5 - 14.1 % [facility] Mean Platelet Volume 11.6 7.6 - 12.9 fL [facility] NRBC% auto 0.0 % [facility] NRBC Absolute 0.000 0.000 - 0.000 x10(3)/mc L [facility] Blood specimen (specimen) 11/13/2018 10:20 PM EDT 11/13/2018 10:35 PM EDT Narrative Resulting Agency Comment Spec In Lab Natali Kingston MD HEMATOLOGY ORDERABL ES Performing Organization Address [facility] Co de Phone Number [facility] [place] [place] [address] * CK (11/13/2018 10:20 PM EDT) Pathologist [facility] Creatine Kinase 159 0 - 160 unit/L [facility] Blood specimen (specimen) 11/13/2018 10:20 PM EDT 11/13/2018 10:35 PM EDT Narrative Resulting Agency Comment Spec In Lab Vivian Valdez Jr., MD CHEMISTRY ORDERA BLES Performing Organization Address [facility]/ZIP Co de Phone Number [facility] [place] [address] * Troponin (11/13/2018 10:20 PM EDT) [facility] Troponin-T <0.01 0.00 - 0.00 ng/mL [facility] Comment: The 99th percentile for Troponin T is less than 0.01 ng/mL, any detectable cTnT concentration using this assay should be considered elevated. According to the third universal definition of myocardial infarction the following criteria with a clinical presentation consistent with acute myocardial ischemia meets the diagnosis for a myocardial infarction (MN). Detection of a rise and/or fall of cTnT, with at least one value greater than the 99th percentile (> or = 0.01) and with at least one of the following ?? Symptoms of ischemia ?? New or presumed new significant WF-yltqhee-D wave (ST-T) changes or new left bundle [...] additional sample may be indicated. Reference: Third [place] Definition of Myocardial Infarction. Journal of the [place] College [employer] 2012;60:1581-98 Blood specimen (specimen) 11/13/2018 10:20 PM EDT 11/13/2018 10:35 PM EDT Narrative Resulting Agency Comment Spec In Lab Vivian Valdez Jr., MD CHEMISTRY ORDERA BLES Performing Organization Address [facility]/ZIP Co de Phone Number [facility] [place] [place] [address] * (ABNORMAL) T4, free (11/13/2018 10:20 PM EDT) Free T4 0.87(L) 0.93 - 1.70 ng/dL [facility] Blood specimen (specimen) 11/13/2018 10:20 PM EDT 11/13/2018 10:35 PM EDT Narrative Resulting Agency Comment Spec In Lab Vivian Valdez Jr., MD CHEMISTRY ORDERA BLEDelisa Performing Organization Address City/[facility]/ZIP Co de Phone Number [facility] [place] [place] [address] * (ABNORMAL) TSH (11/13/2018 10:20 PM EDT) Thyroid Stimulating Hormone 0.18(L) 0.27 - 4.20 mcIU/mL [facility] Blood specimen (specimen) 11/13/2018 10:20 PM EDT 11/13/2018 10:35 PM EDT Narrative Resulting Agency Comment Spec In Lab Vivian Valdez Jr., MD CHEMISTRY ORDERA KAYLEY Performing Organization Address [facility] Co de Phone Number [facility] [place] [place] [address] * (ABNORMAL) pro-Brain Natriuretic Peptide (11/13/2018 10:20 PM EDT) NT-proBNP 2,920(H) <=125 pg/mL [facility] Blood specimen (specimen) 11/13/2018 10:20 PM EDT 11/13/2018 10:35 PM EDT Narrative Resulting Agency Comment Spec In Lab Vivian Valdez Jr., MD CHEMISTRY ORDERA KAYLEY Performing Organization Address [facility] Co de Phone Number [facility] [place] [place] [address] * (ABNORMAL) CMP w/fasting Glucose (11/13/2018 10:20 PM EDT) Glucose Fasting 195(H) 65 - 99 mg/dL [facility] Comment: ?Fasting* Glucose Interpretive Criteria Normal [...] of Diabetes Mellitus, Position Statement from the [place] Diabetes Association. ??Diabetes Care, Volume 33, Supplement 1, Aug 2009 Blood Urea Nitrogen 20(H) 8 - 18 mg/dL [facility] Creatinine 1.33(H) 0.70 - 1.20 mg/dL [facility] Sodium 140 135 - 145 mmol/L [facility] Potassium 4.9 3.5 - 5.0 mmol/L [facility] Comment: Please note: ??Patients with WBC >100,000 may have falsely elevated Potassium levels. ??For accurate Potassium quantification in these patients send serum separator tube (gold top) for subsequent determinations. ??Contact the Clinical Chemistry Laboratory if there are any questions. Chloride 105 98 - 107 mmol/L [facility] Carbon Dioxide 22 22 - 31 mmol/L [facility] Anion Gap 13 5 - 15 mmol/L [facility] Calcium 8.6 8.5 - 10.5 mg/dL [facility] Protein, Total 6.2 6.1 - 8.0 gm/dL [facility] Albumin 3.1(L) 3.2 - 5.2 gm/dL [facility] Aspartate Aminotransferase 30 0 - 30 unit/L [facility] Alanine Aminotransferase 16 0 - 30 unit/L [facility] Alkaline Phosphatase 89 40 - 104 unit/L [facility] Bilirubin, Total 0.2 0.2 - 1.3 mg/dL [facility] Est Glomerular Filtration Rate 45(L) >=60 mL/min/1. 73 m?? [facility] Comment: The eGFR was calculated using the CKD-EPI equation. As with all creatinine based estimates of kidney function, eGFR values calculated with the CKD-EPI equation are not accurate in patients with acute kidney failure, extremes of body mass or the acutely ill. http://SolarPrint.TidbitDotCo/DHnkf eGFR 52(L) >=60 mL/min/1. 73 m?? [facility] Comment: The eGFR was calculated using the CKD-EPI equation. As with all creatinine based estimates of kidney function, eGFR values calculated with the CKD-EPI equation are not accurate in patients with acute kidney failure, extremes of body mass or the acutely ill. http://SolarPrint.TidbitDotCo/DHMCnkf Blood specimen (specimen) 11/13/2018 10:20 PM EDT 11/13/2018 10:35 PM EDT Narrative Resulting Agency Comment Spec In Lab Vivian Valdez Jr., MD CHEMISTRY ORDERA BLES Performing Organization Address [facility] Co de Phone Number [facility] [place] [address] * (ABNORMAL) Phosphorus (11/13/2018 10:20 PM EDT) Phosphorus 5.6(H) 2.5 - 4.5 mg/dL [facility] Blood specimen (specimen) 11/13/2018 10:20 PM EDT 11/13/2018 10:35 PM EDT Narrative Resulting Agency Comment Spec In Lab Vivian Valdez Jr., MD CHEMISTRY WALLYA BLEDelisa Performing Organization Address [facility] Co de Phone Number [facility] [place] [address] * Magnesium (11/13/2018 10:20 PM EDT) Magnesium 0.94 0.69 - 1.07 mmol/L [facility] Blood specimen (specimen) 11/13/2018 10:20 PM EDT 11/13/2018 10:35 PM EDT Narrative Resulting Agency Comment Spec In Lab Vivian Valdez Jr., MD CHEMISTRY ORDERA BLEDelisa Performing Organization Address [facility] Co de Phone Number [facility] [place] [place] [address] * (ABNORMAL) APTT (11/13/2018 10:20 PM EDT) Partial Thromboplastin Time 24(L) 25 - 37 sec [facility] Comment: The PTT is NOT appropriate for heparin monitoring. Use the Anti-Xa level for heparin monitoring (HEP UFH) or LMWH monitoring (HEP LMW). A PTT less than 37 seconds generally indicates adequate hemostasis. Blood specimen (specimen) 11/13/2018 10:20 PM EDT 11/13/2018 10:35 PM EDT Narrative Resulting Agency Comment Spec In Lab Vivian Valdez Jr., MD HEMATOLOGY ORDER DAMARIS Performing Organization Address [facility] de Phone Number [facility] [place] [address] * Prothrombin Time (11/13/2018 10:20 PM EDT) Prothrombin Time 12.5 9.4 - 12.5 sec [facility] International Normalization Ratio 1.1 [facility] Comment: An INR <2.0 [...] MD HEMATOLOGY ORDER DAMARIS Performing Organization Address [facility] de Phone Number [facility] [place] [address] * XR Abdomen 1 view (Generic) (11/13/2018 [...] (11/13/2018 10:15 PM EDT) Respiratory Panel Source LONG DISTANCE OPERATOR Swab [facility] Respiratory Panel PCR Positive(A) Negative [facility] Comment: Respiratory Panels are performed on the [employer], using multiplexed PCR nucleic acid detection. ??Negative results do not preclude respiratory infection and should not be used as the sole basis for diagnosis, treatment or other management decisions. Adenovirus Not Detected Not Detected [facility] Coronavirus HKU1 Not Detected Not Detected [facility] Coronavirus NL63 Not Detected Not Detected [facility] Coronavirus 229E Not Detected Not Detected [facility] Coronavirus OC43 Not Detected Not Detected [facility] Human Metapneumovirus Not Detected Not Detected [facility] Human Rhinovirus/Enterov irus Not Detected Not Detected [facility] Influenza A Not Detected Not Detected [facility] Influenza A H1 Not Detected Not Detected [facility] Influenza A H1-2009 Detected(A) Not Detected [facility] Influenza A H3 Not Detected Not Detected [facility] Influenza B Not Detected Not Detected [facility] Parainfluenza 1 Not Detected Not Detected [facility] Parainfluenza 2 Not Detected Not Detected [facility] Parainfluenza 3 Not Detected Not Detected [facility] Parainfluenza 4 Not Detected Not Detected [facility] Respiratory Syncytial Virus Not Detected Not Detected [facility] Chlamydophila pneumoniae Not Detected Not Detected [facility] Mycoplasma pneumoniae Not Detected Not Detected [facility] Nasopharyngeal swab (specimen) 11/13/2018 10:15 PM EDT 11/13/2018 11:06 PM EDT Narrative Resulting Agency Comment Spec In Lab Vivian Valdez Jr., MD [facility]OLOGY - [facility] ORDER[facility] Performing Organization Address City/State/[facility] Co de Phone Number [facility] [place] [address] * Lower Respiratory Culture Bronchial Alveolar Lavage (11/13/2018 10:15 PM EDT) Lower Respiratory Culture No growth [facility] Gram Stain Few Neutrophils seen No squamous epithelial cells Rare mixed bacterial morphotypes suggestive of normal upper respiratory caryn [facility] Bronchoalveolar lavage fluid specimen (specimen) 11/13/2018 10:15 PM EDT 11/14/2018 7:52 AM EDT Narrative Resulting Agency Comment Spec In Lab Vivian Valdez Jr., MD MICROBIOLOGY - G ENERAL ORDERABLES [facility] [place] [address] * XR Chest PA or AP 1 [...] course of the esophagus courses off the [id number] inferiorly over the abdomen. Procedure Note Delano [...] course of the esophagus courses off the [id number] inferiorly overthe abdomen. IMPRESSION Diffuse airspace and [...] restart at 50% of previous rate. Call bath house attendant if goal not achieved at maximum rate. If SAT is ordered and if patient meets criteria for Spontaneous Awakening Trial, titrate per protocol., Routine, Please indicate the name & specialty of the Attending Provider who authorized the use of this medication: danica friedman Rate/Dose Change 11/19/2018 12:50 PM EDT 0.6 [...] CONTINUOUS, Starting on 11/15/18 at 0915, Until Sat11/17/18 at 1038, Pain Scale Goal Less than [...] mcg/hr (0-6 mL/hr), Intravenous, CONTINUOUS, Starting on Sat11/17/18 at 1100, Until Sat11/19/18 at 1003, Pain [...] PRN, Starting on 11/15/18 at 0846, Until 11/17/18 at 1038, Pain, Refer to infusion order [...] TIMES DAILY, 3 doses, First dose on 11/16/18 at 0900, Last dose on Sat11/16/18 at [...] Sat11/20/18 at 2100, Until Discontinued, Routine Given 11/25/2018 [...] PRN, Starting on Sat11/19/18 at 0958, Until Sat11/20/18 at 1119, Agitation, give 2.5mg, if no [...] Sat11/13/18 at 2319, Until Sat11/13/18 at 2330, KANOZAK, TRINITY R. (RT): cabinet override lactated Ringers 250 mL [...] 1 dose, On Sat11/22/18 at 1130 New Bag 11/22/2018 11:22 AM EDT 166.7 mL/hr lactated Ringers 500 mL IV bolus at 166.7 mL/hr, Intravenous, ONCE, 1 dose, On Sat11/22/18 at 1500 New Bag 11/22/2018 2:43 PM EDT 166.7 mL/hr lidocaine [...] at 2300, Administer over 120 Minutes New 11/18/2018 11:36 PM EDT 2 g 25 mL/hr midazolam (PF) (VERSED) 1 mg/mL injection 1 dose, Starting on Jessie 11/13/18 at 2147, Until Sat11/14/18 at 0209, CHRIS, [...] sedation scores after every rate change. Call bath house attendant if goal not achieved at maximum rate., [...] sedation scores after every rate change. Call bath house attendant if goal not achieved at maximum rate. [...] at 2210, Until Sat11/14/18 at 0209, Lizbet Conklin.: cabinet override NORepinephrine 16 mcg/mL (standard ADULT [...] 17 g, Oral, DAILY, First dose on 11/15/18 at 0900, Until Discontinued, Routine Given 11/18/2018 [...] CONTINUOUS, Starting on Sat11/13/18 at 2215, Until Jessie 11/13/18 at 2316, Titrate to sedation level of [...] restart at 50% of previous rate. Call bath house attendant if goal not achieved at maximum rate. If SAT is ordered and if patient meets criteria for Spontaneous Awakening Trial, titrate per protocol., Routine New Bag 11/13/2018 11:15 PM EDT 100 mcg/kg/min propofol (DIPRIVAN) infusion 0-50 mcg/kg/min ? 82.4 kg (0-24.72 mL/hr, rounded to 0-24.7 mL/hr), Intravenous, CONTINUOUS, Starting on Jessie 11/13/18 at 2345, Until Sat11/14/18 at 1400, Titrate [...] restart at 50% of previous rate. Call bath house attendant if goal not achieved at maximum rate. [...] restart at 50% of previous rate. Call bath house attendant if goal not achieved at maximum rate. [...] restart at 50% of previous rate. Call bath house attendant if goal not achieved at maximum rate. [...] CONTINUOUS, Starting on 11/15/18 at 1945, Until 11/17/18 at 1546, Administer flushes and check residuals [...] for scheduled level. Warning Vesicant/Irritant Medication , STAT, Indication for (Active or Suspected): Pneumonia (Community) New Bag 11/14/2018 2:26 AM EDT 1,250 m g 200 mL/hr vancomycin 1.25 g sodium in [...] for scheduled level. Warning Vesicant/Irritant Medication , Routine, Indication for (Active or Suspected): Pneumonia (Health-Care) New Bag 11/15/2018 12:41 AM EDT 1,250 [...] SCHEDULED, First dose (after last modification) on Sat11/20/18 at 1700, Until Discontinued, Maximum dose of [...] on Sat11/23/18 at 1400, Until Discontinued, Routine 1332 (Given [...] on 11/15/18 at 1830, Until Discontinued, Routine 0832 (Given [...] Discontinued, Remove lidocaine 5 %(700 mg/patch) patch 2099 (Patch Removed - Provider: Inge Alvarez RN) 2099 (Patch Removed - Provider: Inge Alvarez RN) [...] on Sat11/15/18 at 0900, Until Discontinued, Routine 0833 (Given - Provider: Lizbet Diaz RN)2026 (Given - Provider: Inge Alvarez RN) 0856 (Given - Provider: Jonna Thomas RN)2007 (Given - Provider: Inge Alvarez RN) 09 (Not Given - Provider: Lizbet Diaz RN - Reason: Patient/family refused) sodium chloride 0.9 % flush 5 mL 5 mL, Intravenous, 2 TIMES DAILY, First dose on Jessie 11/20/18 at 2100, Until Discontinued, Routine 0833 (Given - Provider: Lizbet Diaz RN)2027 (Given - Provider: Inge Alvarez RN) 09 (Given - Provider: Jonna Thomas RN)2012 (Given - Provider: Inge Alvarez RN) 0838 (Given - Provider: Lizbet Diaz RN) traZODone (DESYREL) tablet 12.5 mg 12.5 mg, Oral, NIGHTLY, First dose (after last modification) on Ejssie 11/20/18 at 2100, Until Discontinued, Routine 2026 [...] 24 hours, Routine 1208 (Given - Provider: Lizbet Diaz RN) 0437 (Given - Provider: Inge [...] documented as of this encounter Care Teams Quality Control Systems Manager Relationship Specialty Start Date End Date Cb Florence [address] [place] [address] PCP - General Family Medicine 11/13/18 03/29/20 documented as of this encounter
--- OUTSIDE RECORDS SUMMARY | 2024-06-15 10:30 | XMS_ITS | Encounter Summary ---
Author Organization [facility] Address [facility] [place] [address] Care Team Providers Care Fiscal Services Manager Name Role Phone BourbonMary Alice davis MANUELA Primary Care Provider [phone] Encounter Details Date Type Department Care Team (Late st Contact Info) Description 09/13/2017 4:00 PM EST Office [place] [address] Osmany Holloway MD [facility] [place] [address] Influenza vaccination contraindicated; COPD, moderate Social History [...] tablet by mouth 2 times daily. 60 [id number] ??? dexlansoprazole (DEXILANT) 60 mg Cap, Delayed [...] [place]Non-Drug; Combo Route) route daily. ??? fluticasone (FLONASE) [...] classified documented in this encounter Care Teams Fiscal Services Manager Relationship Specialty Start Date End Date Mary Alice Cage APRN PCP - General 10/12/11 11/12/18 documented as of this encounter
--- OUTSIDE RECORDS SUMMARY | 2024-06-15 10:30 | XMS_ITS | Encounter Summary ---
Author Organization [facility] [place] [address] Care Team Providers Care Government Operations Consultant Name Role Phone Mary Alice Cage MANUELA Primary Care Provider [phone] Encounter Details Date Type Department Care Team (Late st Contact Info) Description 11/05/2017 1:46 PM EDT Anesthesia Event [place] [address] Tara Madrid MD [facility] DR ANESTHESIOLOGY [place] [address] DelilahKimberly Means CRNA [facility] DR ANESTHESIOLOGY [place] [address] Anesthesia Record Procedure Summary Procedure Name Responsible [...] cephalic vein (lateral side of arm), right; lrcq-rax-tkgqdy catheter system; 20 gauge; Judi Padron RN; [...] Madrid MD - 11/05/2017 2:59 PM EDT [facility] Anesthesiology Post-procedure Note Patient: Poppy Mclaughlin Procedure Summary Date Anesthesia Start Anesthesia Stop Room / Location 11/05/17 1346 1422 [facility] ENDO 5 / [facility] ENDOSCOPY Procedure Diagnosis Surgeon Responsible Provider EGD, W DIRECTED SUBMUCOSAL INJECTION(S) (NUTCRACKER ESOPHAGUS -BOTOX INJECTION; (consult)) Osmany Keller MD Procopio, Marcia A, MD All Anesthesia Providers: Anesthesiologist: Tara Madrid MD LAND SURVEYOR MANAGER: Kimberly Mazariegos CRNA Most Recent Vitals: 11/05/17 1450 BP: 162/85 Pulse: Resp: 16 SpO2: Pain 0 (11/05/17 1450) [facility] Level of Consciousness: Awake and Alert Pain [...] STRUCTUAL performed by Rios Acuna MD at [facility] MAIN OR ??? PRO ANTERIOR INSTRUMENTATION 2-3 VERTEBRAL SEGMENTS 09/08/2013 @ANT. SPINAL INSTRUMENTATION, 2-3 VERTEBRA, SEGMENTED performed by Rios Acuna MD at [facility] AG[place]O ??? PRO ARTHRD ANT INTERDY CERVCL BELW C2 EA ADDL NTRSPC 09/08/2013 @ARTHRODESIS ANT INTERBDY CERVCL BELOW C2 EA ADDL INTRSPACE performed by Rios Acuna MD at [facility] MAIN OR ??? PRO ARTHRODESIS, ANT INTERBODY,DECOMPRESSION; CERVICAL BELOW C2 09/08/2013 ARTHRODESIS, ANT INTERBODY,DECOMPRESSION; CERVICAL BELOW C2 performed by Rios Acuna MD at [facility] MAIN OR ??? PRO DECOMPRESS SPINAL CORD, 1 SEG Right 08/31/2014 TRANSPEDICULAR LUMBAR DECOMPRESSION SPINAL CORD,EQUINA & NERVE ROOTS, ONE LVL. performed by Rios Acuna MD at [facility] MAIN OR ??? PRO LAP, CHOLECYSTECTOMY/GRAPH 11/04/2012 LAPAROSCOPIC CHOLECYSTECTOMY WITH CHOLANGIOGRAM performed by Abel Carlton MD at [facility] OR ??? PRO UNLISTED DIAGNOSTIC GASTROENTEROLOGY PROCEDURE [address] jimenez ??? PRO UPPER GI ENDOSCOPY, BIOPSY N/A 10/26/2015 UPPER GASTROINTESTINAL ENDOSCOPY,WITH BIOPSY SINGLE OR MULTIPLE performed by Apolinar Sepulveda MDat [facility] ENDOSCOPY ??? PRO UPPER GI ENDOSCOPY, DIAGNOSTIC N/A 10/26/2015 EGD, UPPER GI ENDOSCOPY performed by Apolinar Sepulveda MD at [facility] ENDOSCOPY ??? PRO UPPER GI ENDOSCOPY, DIAGNOSTIC N/A 10/02/2016 EGD, UPPER GI ENDOSCOPY performed by Justin Starkey MD at [facility] ENDOSCOPY Social History Substance Use Topics ??? [...] risks discussed with patient. Plan discussed with LAND SURVEYOR MANAGER. PAT Staff Note documented in this encounter [...] mL/hr documented in this encounter Care Teams Government Operations Consultant Relationship Specialty Start Date End Date Mary Alice Cage APRN PCP - General 10/12/11 11/12/18 documented as of this encounter
--- OUTSIDE RECORDS SUMMARY | 2024-06-15 10:30 | XMS_ITS | Encounter Summary ---
Author Organization [facility] [place] [address] Care Team Providers Care Metal Burrer Name Role Phone Cb Florence Primary Care Provider [phone] Encounter Details Date Type Department Care Team (Late st Contact Info) Description 11/13/2018 7:45 PM EDT Ancillary Procedure Radiology Library at [facility] [place] [address] Andriy Valdez Jr., MD [facility] [place] [address] Social History Tobacco Use Types Packs/Day Years [...] DX Chest (11/13/2018 7:43 PM EDT) Narrative [facility] - 11/13/2018 7:43 PM EDT This exam is auto-finalizing. It's purpose is for storage only. Andriy Valdez Jr., MD IMG FILM LIBRARY ORDERABLES CARRI [place], [place] documented in this encounter Visit Diagnoses Not on filedocumented in this encounter Care Teams Metal Burrer Relationship Specialty Start Date End Date Cb Florence PA [address] [place] [address] PCP - General Family Medicine 11/13/18 03/29/20 documented as of this encounter
--- OUTSIDE RECORDS SUMMARY | 2024-06-15 10:30 | XMS_ITS | Encounter Summary ---
[place] [address] Care Team Providers Care Orchestra Musician Name Role Phone TuckerMary Alice davis Rajendra ROY Primary Care Provider [phone] Encounter Details Date Type Department Care Team (Late st Contact Info) Description 08/15/2018 Telephone [place] [address] Puja Leon Social History Tobacco Use Types [...] 10:49 AM EST Caller: [facility] Call for:nurse Reason for call: wanted to [...] on filedocumented in this encounter Care Teams Orchestra Musician Relationship Specialty Start Date End Date Mary Alice Cage APRN PCP - General 10/12/11 11/12/18 documented as of this encounter
--- OUTSIDE RECORDS SUMMARY | 2024-06-15 10:30 | XMS_ITS | Encounter Summary ---
Author Organization [facility] [address] Care Team Providers Care Lamp Shades Supervisor Name Role Phone NilesMary Alice Rajendra ROY Primary Care Provider [phone] Encounter Details Date Type Department Care Team (Latest Contact Info) Description 09/13/2017 3:26 PM EST - 09/13/2017 11:59 PM EST Hospital Encounter [place] [address] COPD, moderate Discharge Disposition: Home Social History [...] Spacing Device Spcr 2 [place]uffs [place] [facility]; Combo Route) route daily. promethazine (PHENERGAN) [...] classified documented in this encounter Care Teams Lamp Shades Supervisor Relationship Specialty Start Date End Date Mary Alice Cage APRN PCP - General 10/12/11 11/12/18 documented as of this encounter
--- OUTSIDE RECORDS SUMMARY | 2024-06-15 10:30 | XMS_ITS | Encounter Summary ---
Author Organization [facility] [place] [address] Care Team Providers Care Fourth Grade Teacher Name Role Phone LambMary Alice davis Rajendra ROY Primary Care Provider [phone] Reason for Visit * Reason Comments Follow-up Encounter Details Date Type Department Care Team (Late st Contact Info) Description 01/01/2018 9:30 AM EDT Office Visit [place] [address] Osmany Keller MD [facility] DR [place] [address] Esophageal dysmotility; Irritable bowel syndrome with diarrhea; [...] 5. [facility]tendon release.. MEDICATION/DIET TRIALS 1. Neomycin - [...] 20 of 30 minutes spent in direct yxpj-nw-ruac counseling and the rest in taking history [...] specified documented in this encounter Care Teams Fourth Grade Teacher Relationship Specialty Start Date End Date Mary Alice Cage APRN PCP - General 10/12/11 11/12/18 documented as of this encounter
--- OUTSIDE RECORDS SUMMARY | 2024-06-15 10:30 | XMS_ITS | Encounter Summary ---
[place] [address] Care Team Providers Care Appraiser Land Name Role Phone Mary Alice Cage APRN Primary Care Provider [phone] Reason for Visit * Reason Onset Date Comments Prior Authorization 10/14/2018 Encounter Details Date Type Department Care Team (Late st Contact Info) Description 10/14/2018 Telephone [place] [address] Amanda Sanchez CCMA Prior Authorization Social History [...] Prior Authorization 4L Gastroenterology / [place] [address] Subscriber Insurance: [place] Medicaid Phone: Fax: Physician: Osmany Keller Return [...] on filedocumented in this encounter Care Teams Appraiser Land Relationship Specialty Start Date End Date Mary Alice Cage APRN PCP - General 10/12/11 11/12/18 documented as of this encounter
--- OUTSIDE RECORDS SUMMARY | 2024-06-15 10:30 | XMS_ITS | Encounter Summary ---
[place] [address] Care Team Providers Care Mask Designer Name Role Phone McphersonMary Alice davis MANUELA Primary Care Provider [phone] Encounter Details Date Type Department Care Team (Late st Contact Info) Description 08/14/2018 Refill [place] [address] Puja Leon Social History Tobacco Use Types [...] RN - 08/14/2018 10:13 AM EST This leader writer called the pharmacy to clarify what [...] 08/14/2018 9:59 AM EST Caller: mari in [place] Call for: nurse Reason for call: med viberzi written for a yrs worth but can only for 6 months worth Call back urgency: routine Ok to leave detailed message? yes Preferred method of communication: [phone] documented in this encounter Plan of Treatment Not on file documented as of this encounter Visit Diagnoses Not on filedocumented in this encounter Care Teams Mask Designer Relationship Specialty Start Date End Date Mary Alice Cage APRN PCP - General 10/12/11 11/12/18 documented as of this encounter
--- OUTSIDE RECORDS SUMMARY | 2024-06-15 10:30 | XMS_ITS | Encounter Summary ---
Author Organization formerly [facility] [place] [address] Care Team Providers Care Lapel Baster Name Role Phone Mary Alice Cage APRN Primary Care Provider Reason for Visit * Reason Onset Date Comments Medication Refill 01/02/2018 Encounter Details Date Type Department Care Team (Late st Contact Info) Description 01/02/2018 Ref[place] [address] Osmany Keller MD [facility] [place] [address] Gastroesophageal reflux disease, esophagitis presence not specified [...] specified documented in this encounter Care Teams Lapel Baster Relationship Specialty Start Date End Date Mary Alice Cage APRN PCP - General 10/12/11 11/12/18 documented as of this encounter
--- OUTSIDE RECORDS SUMMARY | 2024-06-15 10:30 | XMS_ITS | Encounter Summary ---
Author Organization [facility] [place] [address] Care Team Providers Care Branch Maker Name Role Phone Cb Florence Primary Care Provider [phone] Encounter Details Date Type Department Care Team (Late st Contact Info) Description 11/13/2018 7:50 PM EDT Ancillary Procedure Radiology Library at [facility] [place] [address] Andriy Valdez Jr., MD [facility] [place] [address] Social History Tobacco Use Types Packs/Day Years [...] CT Head (11/13/2018 7:45 PM EDT) Narrative [facility] - 11/13/2018 7:45 PM EDT This exam is auto-finalizing. It's purpose is for storage only. Andriy Valdez Jr., MD IMG FILM LIBRARY ORDERABLES CARRI [place], [place] documented in this encounter Visit Diagnoses Not on filedocumented in this encounter Care Teams Branch Maker Relationship Specialty Start Date End Date Cb Florence PA [address] [place] [address] PCP - General Family Medicine 11/13/18 03/29/20 documented as of this encounter
--- OUTSIDE RECORDS SUMMARY | 2024-06-15 10:30 | XMS_ITS | Encounter Summary ---
[place] [address] Care Team Providers Care Belt Press Operator Name Role Phone Mary Alice Cage APRN Primary Care Provider [phone] Reason for Visit * Reason Onset Date Comments Medication Refill 08/13/2018 Encounter Details Date Type Department Care Team (Late st Contact Info) Description 08/13/2018 Ref[place] [address] Gardenia Bueno CMA GASTROENTEROLOGY DEPT Irritable bowel [...] syndrome documented in this encounter Care Teams Belt Press Operator Relationship Specialty Start Date End Date Mary Alice Cage APRN PCP - General 10/12/11 11/12/18 documented as of this encounter
--- OUTSIDE RECORDS SUMMARY | 2024-06-15 10:30 | XMS_ITS | Encounter Summary ---
[place] [address] Care Team Providers Care Planograph Operator Name Role Phone CleburneMary Alice davis Rajendra ROY Primary Care Provider [phone] Reason for Visit * Reason Onset Date Comments Prior Authorization 01/09/2018 Encounter Details Date Type Department Care Team (Late st Contact Info) Description 01/09/2018 Telephone [place] [address] Gardenia Bueno CMA GASTROENTEROLOGY DEPT Prior Authorization [...] AM EDT Approved on appeal Ref # [id number] 01/09/18 - 08/11/18 Left message for patient advising her medication approved. * Telephone Encounter - Gardenia Bueno CMA - 01/09/2018 2:49 PM EDT Medication Prior Authorization 4L Gastroenterology / [place] [address] Subscriber Insurance: [employer] rx Fax: Physician: Osmany [...] on filedocumented in this encounter Care Teams Planograph Operator Relationship Specialty Start Date End Date Mary Alice Cage APRN PCP - General 10/12/11 11/12/18 documented as of this encounter
--- OUTSIDE RECORDS SUMMARY | 2024-06-15 10:30 | XMS_ITS | Encounter Summary ---
[place] [address] Care Team Providers Care Nuclear Scientist Name Role Phone Mary Alice Cage APRN Primary Care Provider Reason for Referral * Diagnostic Test (Routine) - Closed Specialty Diagnoses / Procedures Referred By Chava alejo Referred To Contact Radiology Diagnoses Type 2 diabetes mellitus with complication, with long-term current use of insulin Procedures NM Gastric Emptying Scan Mary Alice Scanlon MD [facility] [place] [address] [place] [address] Referral ID Status Reason Start Date Expiration Date V isits Requested Visits Authorized [id number] Closed Specialty Service Requested 10/08/2018 10/08/2019 1 1 Reason for Visit * Reason Comments Follow-up Encounter Details Date Type Department Care Team (Late st Contact Info) Description 10/08/2018 10:00 AM EST Office Visit [place] [address] Osmany Keller MD [facility] [place] [address] Type 2 diabetes mellitus with [...] EGD 10/26/15: normal; Z-line at 41. 9. Czhed-bygar-veft wireless pH capsule 10/26/15 to 10/28/15 off [...] CONCENTRATOR MISC) 3 L by [facility].(Non-Drug; Combo Route) route nightly. [...] Device Spcr 2 puffs by [facility].(Non-Drug; Combo Route) route daily. [...] HISTORY 1. Emergency hernia repair May 2011, [place]. 2. Cholecystectomy 11/24/12. 3. Cervical spine fusion surgery August 2013. 4. Lumbar discectomy 08/2014. 5. [facility] April [facility] - [facility]. ?? FAMILY HISTORY [...] 15 of 25 minutes spent in direct deyl-ms-zjpq counseling and the rest in taking history [...] below. ? Electronically signed by: Anatoliy Flores [facility] ([phone]), at 01/01/2019 5:35 PM Narrative 01/01/2019 5:35 [...] number below. Electronically signed by: Anatoliy Flores [facility]([phone]), at 01/01/2019 5:35 PM Osmany Overton MD IMG NM ORDERABLE S documented in this encounter Visit Diagnoses Diagnosis Type 2 diabetes mellitus with complication, with long-term current use of insulin Type 2 diabetes mellitus with complication, with long-term current use of insulin documented in this encounter Care Teams Nuclear Scientist Relationship Specialty Start Date End Date Mary Alice Cage APRN PCP - General 10/12/11 11/12/18 documented as of this encounter
--- OUTSIDE RECORDS SUMMARY | 2024-06-15 10:30 | XMS_ITS | Encounter Summary ---
[place] [address] Care Team Providers Care Test Conductor Name Role Phone GogebicMary Alice davis Rajendra ROY Primary Care Provider [phone] Reason for Visit * Reason Onset Date Comments Prior Authorization 10/10/2017 Encounter Details Date Type Department Care Team (Late st Contact Info) Description 10/10/2017 Telephone [place] [address] Gardenia Bueno CMA GASTROENTEROLOGY DEPT Prior Authorization [...] Prior Authorization 4L Gastroenterology / [place] [address] Subscriber Insurance: [employer] Phone: Fax: Physician: Osmany Keller [place] [facility] Medication Requested: Viberzi Strength: 100 mg Frequency: BID Disp.: 60 Refills: 5 Currently taking: yes Diagnosis for this medication: IBS-D ICD-10 code: K58.0 Prior medications trialed in this patient: xifaxan,lomotil, imodium Medication: Outcome/Adverse Reactions: treatment failure Decision: Per cover my meds: Request Reference Number: [id number]. VIBERZI TAB 100MG is approved through 04/12/2018. For further questions, call . Tracking number/Case number/Reference number: Effective date: Start: End: documented in this encounter Plan of Treatment Not on file documented as of this encounter Visit Diagnoses Not on filedocumented in this encounter Care Teams Test Conductor Relationship Specialty Start Date End Date Mary Alice Cage APRN PCP - General 10/12/11 11/12/18 documented as of this encounter
--- OUTSIDE RECORDS SUMMARY | 2024-06-15 10:30 | XMS_ITS | Encounter Summary ---
Author Organization [facility] [place] [address] Care Team Providers Care Ambulatory Technologist Name Role Phone Cb Florence Primary Care Provider [phone] Encounter Details Date Type Department Care Team (Late st Contact Info) Description 11/13/2018 7:55 PM EDT Ancillary Procedure Radiology Library at [place] [address] Andriy Valdez Jr., MD [facility] [place] [address] Social History Tobacco Use Types Packs/Day Years [...] CT Chest (11/13/2018 7:46 PM EDT) Narrative [facility] - 11/13/2018 7:46 PM EDT This exam is auto-finalizing. It's purpose is for storage only. Andriy Valdez Jr., MD IMG FILM LIBRARY ORDERABLES CARRI [place], [place] documented in this encounter Visit Diagnoses Not on filedocumented in this encounter Care Teams Ambulatory Technologist Relationship Specialty Start Date End Date Cb Florence PA [address] [place] [address] PCP - General Family Medicine 11/13/18 03/29/20 documented as of this encounter
--- OUTSIDE RECORDS SUMMARY | 2024-06-15 10:30 | XMS_ITS | Encounter Summary ---
Author Organization [facility] [address] Care Team Providers Care Vacation Planner Name Role Phone Mary Alice Cage APRN Primary Care Provider Reason for Visit * Reason Onset Date Comments Medication Refill 12/09/2017 Encounter Details Date Type Department Care Team (Late st Contact Info) Description 12/09/2017 Refill [place] [address] Osmany Keller MD [facility] [place] [address] Social History Tobacco Use Types Packs/Day Years [...] on filedocumented in this encounter Care Teams Vacation Planner Relationship Specialty Start Date End Date Mary Alice Cage APRN PCP - General 10/12/11 11/12/18 documented as of this encounter
--- OUTSIDE RECORDS SUMMARY | 2024-06-15 10:30 | XMS_ITS | Encounter Summary ---
Author Organization [facility] [address] Care Team Providers Care Infant Nanny Name Role Phone BradleyMary Alice davis MANUELA Primary Care Provider [phone] Encounter Details Date Type Department Care Team (Late st Contact Info) Description 11/07/2017 Telephone [place] [address] Charmaine Martinez MD [facility] [place] [address] Social History Tobacco Use Types Packs/Day Years [...] on filedocumented in this encounter Care Teams Infant Nanny Relationship Specialty Start Date End Date Mary Alice Cage APRN PCP - General 10/12/11 11/12/18 documented as of this encounter
--- OUTSIDE RECORDS SUMMARY | 2024-06-15 10:31 | XMS_ITS | Encounter Summary ---
Author Organization [facility] [place] [address] Care Team Providers Care Behavioral Interventionist Name Role Phone Mary Alice Cage APRN Primary Care Provider Reason for Visit * Reason Comments Medication Refill Encounter Details Date Type Department Care Team (Late st Contact Info) Description 06/15/2016 Refill [place] [address] Justin Starkey MD [facility] [place] [address] Chronic abdominal pain Social History Tobacco Use [...] site documented in this encounter Care Teams Behavioral Interventionist Relationship Specialty Start Date End Date Mary Alice Cage APRN PCP - General 10/12/11 11/12/18 documented as of this encounter
--- OUTSIDE RECORDS SUMMARY | 2024-06-15 10:31 | XMS_ITS | Encounter Summary ---
Author Organization [facility] [address] [place] [address] Care Team Providers Care Sample Preparation Supervisor Name Role Phone Mary Alice Cage APRN Primary Care Provider [phone] Reason for Referral * Psychiatric (Routine) - Specialty Diagnoses / Procedures Referred By Chava alejo Referred To Contact Psychiatry Diagnoses Insomnia, unspecified type Sleep difficulties Shobha Duke APRN [facility] [place] [address] Referral ID Status Reason Start Date Expiration Date V isits Requested Visits Authorized [id number] Consult, Test & Treat 12/31/2016 06/29/2017 1 1 Encounter Details Date Type Department Care Team (Late st Contact Info) Description 12/28/2016 Telephone Sleep Center at [facility] [address] [place] [address] Jaclyn Arguello Social History Tobacco Use Types [...] unspecified documented in this encounter Care Teams Sample Preparation Supervisor Relationship Specialty Start Date End Date Mary Alice Cage APRN PCP - General 10/12/11 11/12/18 documented as of this encounter
--- OUTSIDE RECORDS SUMMARY | 2024-06-15 10:31 | XMS_ITS | Encounter Summary ---
[place] [address] Care Team Providers Care Clip And Hanger Attacher Name Role Phone SteeleMary Alice davis Rajendra ROY Primary Care Provider [phone] Reason for Visit * Reason Onset Date Comments Prior Authorization 09/20/2016 Encounter Details Date Type Department Care Team (Late st Contact Info) Description 09/20/2016 Telephone [place] [address] Gardenia Bueno CMA GASTROENTEROLOGY DEPT Prior Authorization [...] on filedocumented in this encounter Care Teams Clip And Hanger Attacher Relationship Specialty Start Date End Date Mary Alice Cage APRN PCP - General 10/12/11 11/12/18 documented as of this encounter
--- OUTSIDE RECORDS SUMMARY | 2024-06-15 10:31 | XMS_ITS | Encounter Summary ---
[place] [address] Care Team Providers Care Meter Engineer Name Role Phone Mary Alice Cage MANUELA Primary Care Provider [phone] Encounter Details Date Type Department Care Team (Late st Contact Info) Description 05/07/2016 Telephone Sleep Center at [facility] [address] [place] [address] Annie Marino MD [facility] [place] [address] Social History Tobacco Use Types Packs/Day Years [...] on filedocumented in this encounter Care Teams Meter Engineer Relationship Specialty Start Date End Date Mary Alice Cage APRN PCP - General 10/12/11 11/12/18 documented as of this encounter
--- OUTSIDE RECORDS SUMMARY | 2024-06-15 10:31 | XMS_ITS | Encounter Summary ---
Author Organization [facility] [place] [address] Care Team Providers Care Sole Rougher Name Role Phone Mary Alice Cage APRN Primary Care Provider Reason for Visit * Reason Comments Medication Refill Encounter Details Date Type Department Care Team (Late st Contact Info) Description 07/07/2016 [place] [address] Osmany Holloway MD [facility] [place] [address] COPD, moderate Social History Tobacco Use Types [...] classified documented in this encounter Care Teams Sole Rougher Relationship Specialty Start Date End Date Mary Alice Cage APRN PCP - General 10/12/11 11/12/18 documented as of this encounter
--- OUTSIDE RECORDS SUMMARY | 2024-06-15 10:31 | XMS_ITS | Encounter Summary ---
Author Organization [facility] Mus[facility] [place] [address] Care Team Providers Care Japanese Professor Name Role Phone GraingerMary Alice davis Rajendra ROY Primary Care Provider [phone] Reason for Visit * Reason Comments Follow-up Encounter Details Date Type Department Care Team (Latest Contact Info) Description 08/21/2017 10:00 AM EST Office Visit [place] [address] Osmany Keller MD [facility] [place] [address] Gastroesophageal reflux disease, esophagitis presence not specified; [...] 5. Left [facility] April [facility].. Social : still smoking, [...] esophagus documented in this encounter Care Teams Japanese Professor Relationship Specialty Start Date End Date Mary Alice Cage APRN PCP - General 10/12/11 11/12/18 documented as of this encounter
--- OUTSIDE RECORDS SUMMARY | 2024-06-15 10:31 | XMS_ITS | Encounter Summary ---
Author Organization [facility] Musa adair [place] [id number] Care Team Providers Care Jordan Worker Name Role Phone [place]iles Mary Alicepham Drew APRN Primary Care Provider [phone] Reason for Referral * Psychiatric (Routine) - Closed Specialty Diagnoses / Procedures Referred By Chava alejo Referred To Contact Psychiatry Diagnoses Snoring Insomnia, unspecified type Sleep difficulties Shobha Duke APRN [facility] [place] [address] Valentin Le, PhD [facility] [place] [address] Referral ID Status Reason Start Date Expiration Date V isits Requested Visits Authorized [id number] Closed Consult, Test & Treat 12/23/2016 12/23/2017 1 1 Encounter Details Date Type Department Care Team (Late st Contact Info) Description 12/20/2016 10:00 AM EDT Office Visit Sleep Center at [facility] [address] [place] [address] Shobha Duke APRN [facility] [place] [address] Snoring; Insomnia, unspecified type; Sleep difficulties Social [...] Recommendations: --Referral for CBT-i for patient in [facility] area (not up here) --Follow up with Dr. Holloway for pulmonary issues. Oxygenation is significantly improved compared with April of last year. Absence of REM sleep may miss oxygen desaturations that are normally worse during that sleep stage. --Driving safety discussed, recommend patient not drive if drowsy, if drowsy while driving, thread puller and nap. --Follow-up: RTC as needed [...] for CBT-I if the patient is agreeable. Mico: 12 today ROS: Constitutional: Weight change: Loss [...] prefer someone closer to her home in [place], [place], as it is difficulty for her [...] blood sugars (no recent A1C labs in [facility]), this can also interfere with her sleep [...] Recommendations: --Referral for CBT-i for patient in [facility] area, if possible; in [place], [place], far for patient to drive. May be provider in [facility] area on [employer] Find a Therapist [...] drive if drowsy, if drowsy while driving, thread puller and nap. --Consideration of future diagnostic [...] unspecified documented in this encounter Care Teams Jordan Worker Relationship Specialty Start Date End Date Mary Alice Cage APRN PCP - General 10/12/11 11/12/18 documented as of this encounter
--- OUTSIDE RECORDS SUMMARY | 2024-06-15 10:31 | XMS_ITS | Encounter Summary ---
Author Organization [facility] [place] [address] Care Team Providers Care Meteorologist In Charge Name Role Phone Mary Alice Cage MANUELA Primary Care Provider [phone] Encounter Details Date Type Department Care Team (Latest Contact Info) Description 10/02/2016 11:45 AM EST - 10/02/2016 2:52 PM EST Hospital Encounter [place] [address] Justin Starkey MD [facility] [place] [address] Discharge Disposition: Home Social History Tobacco Use [...] occurs please contact your M.D. Please call [phone] before 5 pm with problems, questions or concerns. After 5pm call [phone] and ask to speak with the events associate color television console monitor. Discharge instructions reviewed with patient who expresses understanding. * Patient Instructions* Justin Starkey MD - 10/02/2016 1:24 PM EST Please see Recommendations in the Provation procedure report which is documented in the procedural note in [facility]. * Attachments The following attachments cannot be sent through Care Everywhere. * EGD (UPPER ENDOSCOPY): POST-OP (ARABIC) documented in this encounter Medications at Time [...] Inhalational Spacing Device Spcr 2 puffs by [facility].(Non-Drug; Combo Route) route daily. promethazine (PHENERGAN) 25 [...] 12/20/2016 sulfamethoxazole-trim ethoprim (BACTRIM DS) 800-160 mg TabletIndications:JOB SITE SUPERINTENDENT D, moderate TAKE ONE TABLET BY MOUTH [...] (10/02/2016 12:56 PM EST) UPPER GI ENDOSCOPY [facility] Endoscopy ___ Procedure Date: 10/02/2016 12:56 PM ? Patient Name: Poppy Mclaughlin ? Date of : 1960 ? Age: 56 ? Order #: [id number] ? Instrument Name: [id number] ? ___ Procedure: ? Upper GI endoscopy [...] Procedure Code(s): ?? --- Professional --- ? 72047, Esophagogastroduode noscopy, ? flexible, transoral; with directed ? submucosal injection(s), any substance CPT copyright 2016 [employer]. All rights reserved. The codes documented in this report are preliminary and upon field scout review may be revised to meet current [...] MD) documented in this encounter Care Teams Meteorologist In Charge Relationship Specialty Start Date End Date Mary Alice Cage APRN PCP - General 10/12/11 11/12/18 documented as of this encounter
--- OUTSIDE RECORDS SUMMARY | 2024-06-15 10:31 | XMS_ITS | Encounter Summary ---
Author Organization [facility] Address [facility] [place] [address] Care Team Providers Care Kier Pleater Name Role Phone Mary Alice Cage Rajendra ROY Primary Care Provider [phone] Reason for Visit * Consultation (Routine) - Closed Specialty Diagnoses / Procedures Referred By Chava alejo Referred To Contact Sleep Center Diagnoses ELO (obstructive sleep apnea) Procedures PRG POLYLSOM 6+ YRS SLEEP W CPAP W 4+ ADDL BELEM Annie Pacheco MD [facility] [place] [address] [facility] [address] [place] [address] Referral ID Status Reason Start Date Expiration Date V isits Requested Visits Authorized [id number] Closed Test Only 05/03/2016 05/03/2017 1 1 Encounter Details Date Type Department Care Team (Late st Contact Info) Description 10/31/2016 8:30 PM EDT Procedure visit Sleep Center at [facility] [address] [place] [address] Bambi Angeles MD [facility] [place] [address] ELO (obstructive sleep apnea); Sleep [...] a mild degree (AHI of 7) noted. [facility] AHI of 0.5 which includes only apneas [...] for CBT-I if the patient is agreeable. [facility] Sleep Disorders Center REPORT of Diagnostic Polysomnography [...] an arousal or with a 3%-4% desaturation. [facility] Hypopneas not included. Periodic Breathing Total Sleep Time Time (minutes) 0.0 Time (%Sleep Time) 0.0 AHI: Includes all apneas & all hypopneas associated with an arousal or a >= 3% desaturation. Supine Non-Sup. REM NREM Total Count: 0 29 0 29 29 Index (events/hr): 0.0 7.0 0.0 7.0 AHI = 7.0 CMS AHI: Includes all apneas & only hypopneas associated with a >= 4% desaturation. Supine Non-Sup. REM NREM Total [...] NREM (minutes) REM (minutes) All Sleep (minutes) <=90% 0.1 0.0 0.0 0.0 <=89% 0.0 0.0 0.0 0.0 <=88% 0.0 0.0 0.0 0.0 90-99% 158.7 247.0 0.0 247.0 80-89.9% 0.0 0.0 0.0 0.0 70-79.9% 0.0 0.0 0.0 0.0 60-69.9% 0.0 0.0 0.0 0.0 50-59.9% 0.0 0.0 0.0 0.0 <=50% 0.0 0.0 0.0 0.0 Cardiac Details Heart [...] sleep documented in this encounter Care Teams Kier Pleater Relationship Specialty Start Date End Date Mary Alice Cage APRN PCP - General 10/12/11 11/12/18 documented as of this encounter
--- OUTSIDE RECORDS SUMMARY | 2024-06-15 10:31 | XMS_ITS | Encounter Summary ---
[place] [address] Care Team Providers Care Kettle Cleaner Name Role Phone Mary Alice Cage APRN Primary Care Provider [phone] Reason for Referral * Diagnostic Test (Routine) - Closed Specialty Diagnoses / Procedures Referred By Contac t Referred To Contact Cardiology Diagnoses PAH (pulmonary artery hypertension) Procedures Echocardiogram Transthoracic(Leb) Osmany Holloway MD [facility] [place] [address] [facility] [place] [address] Referral ID Status Reason Start Date Expiration Date V isits Requested Visits Authorized [id number] Closed Specialty Service Requested 07/09/2016 07/09/2017 1 1 Reason for Visit * Diagnostic Test (Routine) - Closed Specialty Diagnoses / Procedures Referred By Contac t Referred To Contact Cardiology Diagnoses PAH (pulmonary artery hypertension) Procedures Echocardiogram Transthoracic(Leb) Osmany Holloway MD [facility] [place] [address] [facility] [place] [address] Referral ID Status Reason Start Date Expiration Date V isits Requested Visits Authorized [id number] Closed Specialty Service Requested 07/09/2016 07/09/2017 1 1 Encounter Details Date Type Department Care Team (Latest Contact Info) Description 10/03/2016 12:30 PM EST - 10/03/2016 1:57 PM EST Hospital Encounter Non-Invasive Cardiology Lab [place] [address] Osmany Holloway MD [facility] [place] [address] PAH (pulmonary artery hypertension) Discharge Disposition: Home [...] Cid ? (Age): 1960(56y) Med Rec#: ? [id number] ?Sex: ?F ? Site Loc: ? [facility] ?Ht / Wt: ??155(cm)/86(kg) Pt. Loc: ?Echo Lab ?BSA: ?1.85 Study Date: ?? 10/03/2016 ?Pt. Type: Outpatient Tape: ? 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 Sinus BP: ? 106/72 SUMMARY: [...] E-wave Vmax ?0.7 ?m/sec ? MV deceleration ccqj716.6 ?msec ? MV A-wave Vmax ?0.7 ?m/sec [...] ? Mid-Inferior ?Normal ? Mid-Inferoseptal ?Normal ? Delta-Septal ? Normal ? Delta-Anterior ? Normal ? Delta-Lateral ?Normal ? Delta-Inferior ? Normal ? Delta-Tip ?Normal ? This report has been electronically signed by: Hilario Aguilera MD ? 10/03/2016 14:03:21 Images reviewed and interpretation verified [facility] Cardiac Ultrasound Laboratory Procedure Note Hilario Aguilera MD - 10/03/2016 Procedure: Transthoracic Echocardiogram Patient: ODETTE Del Cid MARYAM(Age): 1960(56y) Med Rec#: [id number] Sex: F Site Loc: [facility] Ht / Wt: 155(cm)/86(kg) Pt. Loc: Echo Lab BSA: 1.85 Study Date: 10/03/2016 Pt. 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 The [...] MV E-wave Vmax 0.7 m/sec MV deceleration [id number] msec MV A-wave Vmax 0.7 m/sec MV [...] Normal Mid-Posterolateral Normal Mid-Inferior Normal Mid-Inferoseptal Normal Delta-Septal Normal Delta-Anterior Normal Delta-Lateral Normal Delta-Inferior Normal Delta-Tip Normal This report has been electronically signed by: Hilario Aguilera MD 10/03/2016 14:03:21 Images reviewed and interpretation verified [facility] Cardiac Ultrasound Laboratory Osmany Overton MD ECHO ORDERABLES documented in this encounter Visit Diagnoses Diagnosis PAH (pulmonary artery hypertension) Other chronic pulmonary heart diseases documented in this encounter Care Teams Kettle Cleaner Relationship Specialty Start Date End Date Mary Alice Cage APRN PCP - General 10/12/11 11/12/18 documented as of this encounter
--- OUTSIDE RECORDS SUMMARY | 2024-06-15 10:31 | XMS_ITS | Encounter Summary ---
Author Organization [facility] [place] [address] Care Team Providers Care Production Superintendent Name Role Phone SacramentoMary Alice davis Rajendra ROY Primary Care Provider [phone] Reason for Visit * Reason Comments Follow-up Encounter Details Date Type Department Care Team (Latest Contact Info) Description 05/21/2017 10:00 AM EDT Office [place] [address] Justin Starkey MD [facility] [place] [address] Gastroesophageal reflux disease, esophagitis presence not specified; [...] HISTORY 1. Emergency hernia repair May 2011, [place]. 2. Cholecystectomy 11/24/12. 3. Cervical spine fusion surgery August 2013. 4. Lumbar discectomy 08/2014. 5. Left hand surgery April 2017, . [facility] - tendon release. HABITS Positive tobacco. No alcohol for jrdy-nlf-d-half years. FAMILY HISTORY Noncontributory. No first-degree family [...] EGD 10/26/15: normal; Z-line at 41. 9. Bgqsr-omngd-tqyk wireless pH capsule 10/26/15 to 10/28/15 off [...] patient is aware that I am leaving [facility]. She would like to follow up with Dr. Ramirez she initially saw at [facility] and who then referred her to Ms. O???Sarah and then to me. TIME SPENT WITH PATIENT Total Minutes: 40 Minutes of Pkfe-fu-Htfk Counseling: Greater than 35 minutes were spent in eurt-ef-gavm counseling and coordination of care. Justin Starkey, PhD, MD skin care technician, [employer] [employer] Chief, Section of Gastroenterology and Hepatology [facility] [place] [address] V: [phone] F: [phone] MICKY/mian CC/EC: PCP - staff msg copy 05/24/17 [facility] Employee Relations Representative - staff msg copy 05/24/17 documented in this encounter Plan of Treatment Not on file documented as of this encounter Visit Diagnoses Diagnosis Gastroesophageal reflux disease, esophagitis presence not specified Small intestinal bacterial overgrowth Irritable bowel syndrome with diarrhea Irritable bowel syndrome Nutcracker esophagus Dyskinesia of esophagus documented in this encounter Care Teams Production Superintendent Relationship Specialty Start Date End Date Mary Alice Cage APRN PCP - General 10/12/11 11/12/18 documented as of this encounter
--- OUTSIDE RECORDS SUMMARY | 2024-06-15 10:31 | XMS_ITS | Encounter Summary ---
Author Organization [facility] [address] Care Team Providers Care Rug Sizer Name Role Phone Mary Alice Cage APRN Primary Care Provider [phone] Reason for Referral * Diagnostic Test (Routine) - Closed Specialty Diagnoses / Procedures Referred By Chava alejo Referred To Contact Cardiology Diagnoses PAH (pulmonary artery hypertension) Procedures Echocardiogram Transthoracic(Leb) Osmany Holloway MD [facility] [place] [address] [facility] [place] [address] Referral ID Status Reason Start Date Expiration Date V isits Requested Visits Authorized [id number] Closed Specialty Service Requested 07/09/2016 07/09/2017 1 1 Reason for Visit * Reason Comments Follow-up Encounter Details Date Type Department Care Team (Late st Contact Info) Description 07/09/2016 11:30 AM EST Office [place] [address] Osmany Holloway MD [facility] [place] [address] Mixed restrictive and obstructive lung [...] 30 capsule 5 ??? Miscellaneous [employer] [facility] Face mask for nocturnal O2 1 each PRN ??? simvastatin (ZOCOR) 20 mg Tablet Take 20 mg by mouth nightly. ??? OXYGEN-AIR DELIVERY SYSTEMS ([facility] OXYGEN CONCENTRATOR [facility]) by [facility].(Non-Drug; Combo Route) route nightly. ??? chlorpheniramine (CHLOR-TRIMETON) [...] Spacing Device Spcr 2 puffs by [facility].(Non-Drug; Combo Route) route daily. ??? fluticasone (FLONASE) [...] M ? (Age): 1960(56y) Med Rec#: ? [id number] ?Sex: ?F ? Site Loc: ? [facility] ?Ht / Wt: ??155(cm)/86(kg) Pt. Loc: ?Echo Lab ?BSA: ?1.85 Study Date: ?? 10/03/2016 ?Pt. Type: Outpatient Tape: ? Referring: Osmany Holloway Reading: Hilario Aguilera ([id number]) Kettle Coordinator: Andriy Garland Diagnosis: *ICD-10-PCS Other secondary pulmonary hypertension (I27.2) CPT Codes: *Echo Full (31944) *Spectral Doppler (17759) *Color Doppler (45897) Rhythm: ? Sinus BP: ? 106/72 SUMMARY: [...] E-wave Vmax ?0.7 ?m/sec ? MV deceleration akjs806.6 ?msec ? MV A-wave Vmax ?0.7 ?m/sec [...] ? Mid-Inferior ?Normal ? Mid-Inferoseptal ?Normal ? Gates-Septal ? Normal ? Gates-Anterior ? Normal ? Gates-Lateral ?Normal ? Gates-Inferior ? Normal ? Gates-Tip ?Normal ? This report has been electronically signed by: Hilario Aguilera MD ? 10/03/2016 14:03:21 Images reviewed and interpretation verified [facility] Cardiac Ultrasound Laboratory Procedure Note Hilario Aguilera MD - 10/03/2016 Procedure: Transthoracic Echocardiogram Patient: ODETTE Del Cid (Age): 1960(56y) Med Rec#: [id number] Sex: F Site Loc: [facility] Ht / Wt: 155(cm)/86(kg) Pt. Loc: Echo Lab BSA: 1.85 Study Date: 10/03/2016 Pt. 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 The [...] MV E-wave Vmax 0.7 m/sec MV deceleration [id number] msec MV A-wave Vmax 0.7 m/sec MV [...] Normal Mid-Posterolateral Normal Mid-Inferior Normal Mid-Inferoseptal Normal Gates-Septal Normal Gates-Anterior Normal Gates-Lateral Normal Gates-Inferior Normal Gates-Tip Normal This report has been electronically signed by: Hilario Aguilera MD 10/03/2016 14:03:21 Images reviewed and interpretation verified [facility] Cardiac Ultrasound Laboratory Osmany Overton MD [...] diseases documented in this encounter Care Teams Rug Sizer Relationship Specialty Start Date End Date [place], Mary Alice G, RAILROAD CAR REPAIR SUPERVISOR PCP - General 10/12/11 11/12/18 documented as of this encounter
--- OUTSIDE RECORDS SUMMARY | 2024-06-15 10:31 | XMS_ITS | Encounter Summary ---
[place] [address] Care Team Providers Care Sheet Layer Name Role Phone AibonitoMary Alice davis Rajendra ROY Primary Care Provider [phone] Reason for Referral * Consultation (Routine) - Closed Specialty Diagnoses / Procedures Referred By Chava alejo Referred To Contact Gastroenterology Diagnoses Gastroesophageal reflux disease, esophagitis presence not specified Justin Starkey MD [facility] DR [place] [address] [facility] Endoscopy [address] [place] [id number] Referral ID Status Reason Start Date Expiration Date V isits Requested Visits Authorized [id number] Closed Consult, Test & Treat 09/13/2016 09/13/2017 1 1 Reason for Visit * Reason Comments Follow-up Encounter Details Date Type Department Care Team (Latest Contact Info) Description 09/13/2016 10:00 AM EST Office Visit [place] [address] Justin Starkey MD [facility] DR [place] [address] Gastroesophageal reflux disease, esophagitis presence [...] SR None PCP: Mary Alice Cage APRN ACTIVATED SLUDGE ATTENDANT: None REASON FOR VISIT This is a [...] instituted a trial of eluxadoline for her SKJ-ezns-kjhppsnq symptoms. She was going to call one [...] HISTORY 1. Emergency hernia repair May 2011, [place]. 2. Cholecystectomy 11/24/12. 3. Cervical spine fusion surgery August 2013. 4. Lumbar discectomy 08/2014. HABITS Positive tobacco. No alcohol for dxio-grt-l-half years. FAMILY HISTORY Noncontributory. SOCIAL HISTORY for [...] EGD 10/26/15: normal; Z-line at 41. 9. Usqqj-ffvdv-xrdm wireless pH capsule 10/26/15 to 10/28/15 off [...] WITH PATIENT Total Minutes: 40 Minutes of Wxrf-rw-Lydo Counseling: Greater than 35 minutes were spent in jccp-lp-vxmi counseling and coordination of care. Justin Starkey, PhD, MD ship wirer, [facility] Chief, Section of Gastroenterology and Hepatology [facility] [place] [address] V: [phone] F: [phone] BEL/mian CC/EC: PCP - staff msg copy 09/20/16 [facility] Brush Trimming Machine Setter - staff msg copy 09/20/16 documented in [...] type documented in this encounter Care Teams Sheet Layer Relationship Specialty Start Date End Date Mary Alice Cage APRN PCP - General 10/12/11 11/12/18 documented as of this encounter
--- OUTSIDE RECORDS SUMMARY | 2024-06-15 10:31 | XMS_ITS | Encounter Summary ---
[place] [address] Care Team Providers Care Senior Drafter Name Role Phone MccullochMary Alice davis Rajendra ROY Primary Care Provider [phone] Encounter Details Date Type Department Care Team (Latest Contact Info) Description 07/09/2016 10:59 AM EST - 07/09/2016 11:59 PM [facility] Hospital [place] [address] PAH (pulmonary artery hypertension); COPD, moderate Discharge [...] daily. sulfamethoxazole-trim ethoprim (BACTRIM DS) 800-160 mg TabletIndications:MID LEVEL PROJECT MANAGER D, moderate TAKE ONE TABLET BY MOUTH [...] The low- normal FEV1/FVC and disproportionate reductionin LBC92-67 could represent a co- existent obstructive defect. [...] ??The low-normal FEV1/FVC and disproportionate reduction in ZVZ79-55 could represent a co-existent obstructive defect. ??The decreased diffusing capacity is a non-specific finding consistent with a variety of cardiopulmonary disorders (e.g. Emphysema) as well as anemia. Osmany Overton MD PFT ORDERABLES documented in this encounter Visit Diagnoses Diagnosis PAH (pulmonary artery hypertension) Other chronic pulmonary heart diseases COPD, moderate Chronic airway obstruction, not elsewhere classified documented in this encounter Care Teams Senior Drafter Relationship Specialty Start Date End Date Mary Alice Cage APRN PCP - General 10/12/11 11/12/18 documented as of this encounter
--- OUTSIDE RECORDS SUMMARY | 2024-06-15 10:31 | XMS_ITS | Encounter Summary ---
Author Organization [facility] [address] Care Team Providers Care Branch Administrator Name Role Phone Mary Alice Cage MANUELA Primary Care Provider [phone] Encounter Details Date Type Department Care Team (Late st Contact Info) Description 10/02/2016 1:05 PM EST Anesthesia [place] [address] Fabian Schaeffer MD [facility] [place] [address] Re Palmer CRNA [facility] [place] [address] Anesthesia Record Procedure Summary Procedure Name Responsible Anesthesiologist Anesthesia Start Time Anesthesia Stop Time EGD, UPPER GI ENDOSCOPY (WRVU 2.09) (Trunk) Fabian Schaeffer MD 10/02/16 1305 10/02/16 1332 Events Date Time Event Comment 10/02/2016 1303 1305 AN Verify 1305 Start 1308 An Start Data 1313 An Induction 1315 Anesthesia Ready 1318 Quick Note 28 icelandic nasal trumpet to right nare, atraumatic 1332 [...] IV Line - Single Lumen 10/02/16; 1243; rdqj-gkk-qvruui catheter system; Tea Gonzales; distraction, intradermal injection; [...] Schaeffer MD - 10/02/2016 2:10 PM EST [facility] Department of Anesthesiology Post-procedure Note Patient: Poppy Mclaughlin Procedure Summary Date Anesthesia Start Anesthesia Stop Room / Location 10/02/16 1305 1332 [facility] ENDO 2 / [facility] ENDOSCOPY Procedure Diagnosis Surgeon Responsible Provider EGD, UPPER GI ENDOSCOPY (N/A Trunk) (EGD w/Botox-dysphagia (anesthesia consult)) Justin Starkey MD Surgenor, Stephen D, MD All Anesthesia Providers: Anesthesiologist: Fabian Schaeffer MD STUDIO ARTIST: Re Palmer CRNA Last (1hr) Vitals: BP 106/72 (10/02/16 1335) Temp Pulse 81 (10/02/16 1335) Resp 16 (10/02/16 1335) SpO2 97 % (10/02/16 1335) Patient Location: PACU/[facility] Level of Consciousness: Awake and Alert [...] CHOLANGIOGRAM performed by Abel Carlton MD at [facility] MAIN OR ??? Pro arthrodesis, ant interbody,decompression; cervical below c2 09/08/2013 ARTHRODESIS, ANT INTERBODY,DECOMPRESSION; CERVICAL BELOW C2 performed by Rios Acuna MD at [facility] MAIN OR ??? Pro arthrd ant interdy cervcl belw c2 ea addl ntrspc 09/08/2013 @ARTHRODESIS ANT INTERBDY CERVCL BELOW C2 EA ADDL INTRSPACE performed by Rios Acuna MD at [facility] OR ??? Pro anterior instrumentation 2-3 vertebral segments 09/08/2013 @ANT. SPINAL INSTRUMENTATION, 2-3 VERTEBRA, SEGMENTED performed by Rios Acuna MD at [facility] [place] ??? Pro allograft for spine surgery only structural 09/08/2013 ALLOGRAFT FOR SPINE SURGERY ONLY; STRUCTUAL performed by Rios Acuna MD at [facility] OR ??? Pro decompress spinal cord, 1 seg Right 08/31/2014 TRANSPEDICULAR LUMBAR DECOMPRESSION SPINAL CORD,EQUINA & NERVE ROOTS, ONE LVL. performed by Rios Acuna MD at [facility] OR ??? Right 08/31/2014 MODIFIER L4 performed by Rios Acuna MD at [facility] MAIN OR ??? Right 08/31/2014 MODIFIER L5 performed by Rios Acuna MD at [facility] MAIN OR ??? Pro upper gi endoscopy, diagnostic N/A 10/26/2015 EGD, UPPER GI ENDOSCOPY performed by Apolinar Sepulveda MD at [facility] ENDOSCOPY ??? Pro upper gi endoscopy, biopsy N/A 10/26/2015 UPPER GASTROINTESTINAL ENDOSCOPY,WITH BIOPSY SINGLE OR MULTIPLE performed by Apolinar Sepulveda MDat [facility] ENDOSCOPY Social History Substance Use Topics ??? [...] problems with Propofol during lap CCY at [facility] in 2012. HTN GERD Asthma Depression/anxiety COPD, THOMAS Multiple pulmonary nodules/granulomata NPO: Code: Full Region - Other Informed Consent: Anesthetic plan and risks discussed with patient. Use of blood products discussed with patient who consented to blood products. Plan [facility] with STUDIO ARTIST. [facility]: PAT Staff Note documented in this [...] mL/hr documented in this encounter Care Teams Branch Administrator Relationship Specialty Start Date End Date Mary Alice Cage APRN PCP - General 10/12/11 11/12/18 documented as of this encounter
--- OUTSIDE RECORDS SUMMARY | 2024-06-15 10:31 | XMS_ITS | Encounter Summary ---
[place] [address] Care Team Providers Care Umbrella Tipper Machine Name Role Phone [place]iles Mary Alice Drew APRN Primary Care Provider [phone] Encounter Details Date Type Department Care Team (Latest Contact Info) Description 10/03/2016 1:58 PM EST - 10/03/2016 11:59 PM EST Hospital En[place] [address] Mixed restrictive and obstructive lung disease Discharge [...] Inhalational Spacing Device Spcr [address] [facility].(Non-Drug; Combo Route) route [...] classified documented in this encounter Care Teams Umbrella Tipper Machine Relationship Specialty Start Date End Date Mary Alice Cage APRN PCP - General 10/12/11 11/12/18 documented as of this encounter
--- OUTSIDE RECORDS SUMMARY | 2024-06-15 10:31 | XMS_ITS | Encounter Summary ---
[place] [address] Care Team Providers Care Spinning Lathe Operator Automatic Name Role Phone [place] BenitoMary Alice davis MANUELA Primary Care Provider [phone] Encounter Details Date Type Department Care Team (Late st Contact Info) Description 03/05/2017 Telephone Sleep Center at [address] [address] Shobha Duke APRN [facility] DR [place] [address] Social History Tobacco Use Types Packs/Day Years [...] to call us or else email at [facility]. MANUELA FRANK Sleep Medicine documented in this encounter Plan of Treatment Not on file documented as of this encounter Visit Diagnoses Not on filedocumented in this encounter Care Teams Spinning Lathe Operator Automatic Relationship Specialty Start Date End Date Mary Alice Cage APRN PCP - General 10/12/11 11/12/18 documented as of this encounter
--- OUTSIDE RECORDS SUMMARY | 2024-06-15 10:31 | XMS_ITS | Encounter Summary ---
Author Organization [facility] [place] [address] Care Team Providers Care Windows Deployment Technician Name Role Phone Mary Alice Cage MANUELA Primary Care Provider [phone] Encounter Details Date Type Department Care Team (Late st Contact Info) Description 10/02/2016 1:00 PM EST - 10/02/2016 1:30 PM EST Surgery [place] [address] Justin Starkey MD [facility] [place] [address] EGD, UPPER GI ENDOSCOPY (WRVU 2.09) Social [...] occurs please contact your M.D. Please call [phone] before 5 pm with problems, questions or concerns. After 5pm call [phone] and ask to speak with the supervisor electric motor testing talent acquisition manager. Discharge instructions reviewed with patient who expresses [...] Spcr 2 puffs by [facility].(Non-Drug; Combo Route) route daily. promethazine [...] 12/20/2016 sulfamethoxazole-trim ethoprim (BACTRIM DS) 800-160 mg TabletIndications:COUNTER INTELLIGENCE AGENT D, moderate TAKE ONE TABLET BY MOUTH [...] (10/02/2016 12:56 PM EST) UPPER GI ENDOSCOPY [facility] Endoscopy ___ Procedure Date: 10/02/2016 12:56 PM ? Patient Name: Poppy Mclaughlin ? Date of : 1960 ? Age: 56 ? Order #: [id number] ? Instrument Name: [id number] ? ___ Procedure: ? Upper GI endoscopy [...] Procedure Code(s): ?? --- Professional --- ? 68647, Esophagogastroduode noscopy, ? flexible, transoral; with directed ? submucosal injection(s), any substance CPT copyright 2016 [employer]. All rights reserved. The codes documented in this report are preliminary and upon food service worker hospital review may be revised to meet current [...] MD) documented in this encounter Care Teams Windows Deployment Technician Relationship Specialty Start Date End Date Mary Alice Cage APRN PCP - General 10/12/11 11/12/18 documented as of this encounter
--- OUTSIDE RECORDS SUMMARY | 2024-06-15 10:31 | XMS_ITS | Encounter Summary ---
[place] [address] Care Team Providers Care Vendor Relationship Manager Name Role Phone Mary Alice Cage MANUELA Primary Care Provider [phone] Reason for Visit * Reason Onset Date Comments Medication Refill 10/23/2016 Encounter Details Date Type Department Care Team (Late st Contact Info) Description 10/24/2016 [place] [address] Kalie Boss RN PAH (pulmonary artery hypertension) [...] Supply Misc [MACHELLE BUENO MD] Preferred pharmacy: [facility] [address] [place] [address] Comment: documented in this encounter Plan of Treatment Not on file documented as of this encounter Visit Diagnoses Diagnosis PAH (pulmonary artery hypertension) Other chronic pulmonary heart diseases documented in this encounter Care Teams Vendor Relationship Manager Relationship Specialty Start Date End Date Mary Alice Cage APRN PCP - General 10/12/11 11/12/18 documented as of this encounter
--- OUTSIDE RECORDS SUMMARY | 2024-06-15 10:31 | XMS_ITS | Encounter Summary ---
[place] [address] Care Team Providers Care Drama Director Name Role Phone SchoharieMary Alice davis Rajendra ROY Primary Care Provider Reason for Visit * Reason Onset Date Comments Prior Authorization 09/19/2016 Encounter Details Date Type Department Care Team (Late st Contact Info) Description 09/19/2016 Telephone [place] [address] Gardenia Bueno CMA GASTROENTEROLOGY DEPT Prior Authorization [...] completed before pursuing the prior authorization. The hospital pharmacy director agreed to this plan documented in this encounter Plan of Treatment Not on file documented as of this encounter Visit Diagnoses Not on filedocumented in this encounter Care Teams Drama Director Relationship Specialty Start Date End Date Mary Alice Cage APRN PCP - General 10/12/11 11/12/18 documented as of this encounter
--- OUTSIDE RECORDS SUMMARY | 2024-06-15 10:31 | XMS_ITS | Encounter Summary ---
[place] [address] Care Team Providers Care Delivery Driver/Supervisor Name Role Phone CorozalMary Alice davis Rajendra ROY Primary Care Provider [phone] Reason for Visit * Reason Onset Date Comments Prior Authorization 10/19/2016 Encounter Details Date Type Department Care Team (Late st Contact Info) Description 10/19/2016 Telephone [place] [address] Gardenia Bueno CMA GASTROENTEROLOGY DEPT Prior Authorization [...] Update. Approved on appeal 10/19/16 - 08/11/17 [id number] Patient and pharmacy informed. * Telephone Encounter [...] Prior Authorization 4L Gastroenterology / [place] [address] Subscriber Insurance: [employer] Physician: Justin Starkey Return Pharmacy: [facility] Medication Requested: Viberzi Strength: 100 mg Frequency: [...] treat the condition. Tracking number/Case number/Reference number: [id number] Effective date: Start: End: documented in this encounter Plan of Treatment Not on file documented as of this encounter Visit Diagnoses Not on filedocumented in this encounter Care Teams Delivery Driver/Supervisor Relationship Specialty Start Date End Date Mary Alice Cage APRN PCP - General 10/12/11 11/12/18 documented as of this encounter
--- OUTSIDE RECORDS SUMMARY | 2024-06-15 10:31 | XMS_ITS | Encounter Summary ---
Author Organization [facility] [place] [address] Care Team Providers Care Lifestyle Consultant Name Role Phone NilesMary Alice Rajendra ROY Primary Care Provider [phone] Reason for Referral * Physical Therapy (Routine) - Closed Specialty Diagnoses / Procedures Referred By Chava alejo Referred To Contact Diagnoses Chronic bilateral low back pain with right-sided sciatica Jessy Olviera [facility] [place] [address] Unknown None Referral ID Status Reason Start Date Expiration Date V isits Requested Visits Authorized [id number] Closed Evaluate and Treat 05/16/2016 11/12/2016 24 24 Reason for Visit * Reason Comments Pain Management Back Pain Encounter Details Date Type Department Care Team (Late st Contact Info) Description 05/16/2016 8:00 AM EDT Office [place] [address] Jessy Olivera [facility] [place] [address] Chronic bilateral low back pain with right-sided [...] Patient Poppy Mclaughlin 1960 REFERRING PROVIDER Mary Ailce Domingo APRN [address] [place] [address] PRIMARY CARE PROVIDER MARY ALICE DOMINGO APRN CHIEF COMPLAINT: Chronic pain management follow-up HPI: Poppy Mclaughlin is a 55 year-old female who has been seen a few times in the past in the [facility] for various injections. She has [...] she was advised to present to the [facility] ED for evaluation. [place] [...] MOUTH ONCE DAILY Yes Miscellaneous Medical Supply [facility] Face mask for nocturnal O2 Yes HYDROcodone-acetaminophen (VICODIN) 5-300 mg Tablet Take 1 tablet by mouth every 4 hours. 10 mg Yes simvastatin (ZOCOR) 20 mg Tablet Take 20 mg by mouth nightly. Yes OXYGEN-AIR DELIVERY SYSTEMS ([facility]XYGEN [facility]) by [facility].(Non- Drug; Combo Route) route nightly. Yes chlorpheniramine [...] [facility] [place].(Non-Drug; Combo Route) route daily. Yes fluticasone (FLONASE) [...] were answeredto her satisfaction. Jessy Olivera, SAMUEL, PAYROLL AND BENEFITS SPECIALIST-BC, LOOM FIXER HELPER Nurse Practitioner [facility] Center documented in [...] myelopathy documented in this encounter Care Teams Lifestyle Consultant Relationship Specialty Start Date End Date Mary Alice Domingo APRN PCP - General 10/12/11 11/12/18 documented as of this encounter
--- OUTSIDE RECORDS SUMMARY | 2024-06-15 10:31 | XMS_ITS | Encounter Summary ---
[place] [address] Care Team Providers Care Church Administrator Name Role Phone BourbonMary Alice davis MANUELA Primary Care Provider [phone] Encounter Details Date Type Department Care Team (Late st Contact Info) Description 05/04/2016 Telephone Sleep Center at [facility] [address] [place] [address] Annie Marino MD [facility] [place] [address] Social History Tobacco Use Types Packs/Day Years [...] on filedocumented in this encounter Care Teams Church Administrator Relationship Specialty Start Date End Date Mary Alice Cage APRN PCP - General 10/12/11 11/12/18 documented as of this encounter
--- OUTSIDE RECORDS SUMMARY | 2024-06-15 10:31 | XMS_ITS | Encounter Summary ---
Author Organization [facility] [place] [address] Care Team Providers Care Air Traffic Control Operator Name Role Phone PhillipsMary Alice davis Rajendra ROY Primary Care Provider [phone] Reason for Visit * Reason Comments Follow-up Encounter Details Date Type Department Care Team (Late st Contact Info) Description 10/03/2016 3:30 PM EST Office [place] [address] Osmany Holloway MD [facility] [place] [address] COPD, moderate Social History Tobacco Use Types [...] 60 tablet 5 ??? Miscellaneous Medical Supply [facility] Face mask for nocturnal O2 1 each PRN ??? simvastatin (ZOCOR) 20 mg Tablet Take 20 mg by mouth nightly. ??? OXYGEN-AIR DELIVERY SYSTEMS ([facility]GEN [facility]) by [facility].(Non-Drug; Combo Route) route nightly. ??? chlorpheniramine (CHLOR-TRIMETON) [...] Device Spcr 2 puffs by [facility].(Non-Drug; Combo Route) route daily. ??? fluticasone (FLONASE) [...] classified documented in this encounter Care Teams Air Traffic Control Operator Relationship Specialty Start Date End Date Mary Alice Cage APRN PCP - General 10/12/11 11/12/18 documented as of this encounter
--- OUTSIDE RECORDS SUMMARY | 2024-06-15 10:31 | XMS_ITS | Encounter Summary ---
[place] [address] Care Team Providers Care Mattress Filling Machine Tender Name Role Phone BrewsterMary Alice davis Rajendra ROY Primary Care Provider [phone] Encounter Details Date Type Department Care Team (Late st Contact Info) Description 05/03/2016 Orders Only Sleep Center at [facility] [address] [place] [address] Annie Marino MD [facility] DR [place] [address] Social History Tobacco Use Types Packs/Day Years [...] No Requires 1:1 Care: No Requires Parent/Caregiver: [place] of Parent/Caregiver staying: Using Home Oxygen: YES [...] on filedocumented in this encounter Care Teams Mattress Filling Machine Tender Relationship Specialty Start Date End Date Mary Alice Cage APRN PCP - General 10/12/11 11/12/18 documented as of this encounter
--- OUTSIDE RECORDS SUMMARY | 2024-06-15 10:31 | XMS_ITS | Encounter Summary ---
[place] [address] Care Team Providers Care Quality Control Auditor Name Role Phone DuboisMary Alice davis Rajendra ROY Primary Care Provider [phone] Reason for Visit * Reason Onset Date Comments Prior Authorization 09/21/2016 Encounter Details Date Type Department Care Team (Late st Contact Info) Description 09/21/2016 Tele[place] [address] Gardenia Bueno CMA GASTROENTEROLOGY DEPT Prior Authorization [...] 11:05 AM EST Called Malgorzata from the [facility] to let them know that the [...] Prior Authorization 4L Gastroenterology / [place] [address] Subscriber Insurance: [employer]umRX Physician: Justin Starkey Return Pharmacy: [facility] Telephone Fax ? [phone] Medication Requested: Glycopyrrolate Strength: 1 mg Frequency: BID Disp.: 30 Refills: 11 Currently taking: no Diagnosis for this medication: dyskinesia of esophagus ICD-10 code: K22.4 Prior medications trialed in this patient: Bentyl,Albuterol puffer Medication: Outcome/Adverse Reactions: treatment failure Decision: denied the claim being being used as an off label use. Tracking number/Case number/Reference number: [id number] Effective date: Start: End: documented in this encounter Plan of Treatment Not on file documented as of this encounter Visit Diagnoses Not on filedocumented in this encounter Care Teams Quality Control Auditor Relationship Specialty Start Date End Date Mary Alice Cage APRN PCP - General 10/12/11 11/12/18 documented as of this encounter
--- OUTSIDE RECORDS SUMMARY | 2024-06-15 10:31 | XMS_ITS | Encounter Summary ---
Author Organization [facility] [address] [address] Care Team Providers Care Buffer Copper Name Role Phone Mary Alice Cage APRN Primary Care Provider [phone] Reason for Visit * Reason Comments Medication Refill Encounter Details Date Type Department Care Team (Late st Contact Info) Description 03/25/2017 [place] [address] Justin Starkey MD [facility] [place] [address] Social History Tobacco Use Types Packs/Day Years [...] on filedocumented in this encounter Care Teams Buffer Copper Relationship Specialty Start Date End Date Mary Alice Cage APRN PCP - General 10/12/11 11/12/18 documented as of this encounter
--- OUTSIDE RECORDS SUMMARY | 2024-06-15 10:31 | XMS_ITS | Encounter Summary ---
[place] [address] Care Team Providers Care Family Intervention Specialist Name Role Phone HickoryMary Alice davis Rajendra ROY Primary Care Provider Reason for Visit * Reason Onset Date Comments Prior Authorization 10/15/2016 Denial Encounter Details Date Type Department Care Team (Late st Contact Info) Description 10/15/2016 Telephone [place] [phone] Gardenia Bueno CMA GASTROENTEROLOGY DEPT Prior Authorization [...] filedocumented in this encounter Care Teams Family Intervention Specialist Relationship Specialty Start Date End Date Mary Alice Cage APRN PCP - General 10/12/11 11/12/18 documented as of this encounter
--- OUTSIDE RECORDS SUMMARY | 2024-06-15 10:31 | XMS_ITS | Encounter Summary ---
Author Organization [facility]ly [facility] [address] Care Team Providers Care Solutions Operator Name Role Phone Mary Alice Cage APRN Primary Care Provider Reason for Visit * Reason Comments Medication Refill Encounter Details Date Type Department Care Team (Late st Contact Info) Description 08/10/2016 Refill [place] [address] Justin Starkey MD [facility] DR [place] [address] Chronic abdominal pain Social History Tobacco Use [...] site documented in this encounter Care Teams Solutions Operator Relationship Specialty Start Date End Date Mary Alice Cage APRN PCP - General 10/12/11 11/12/18 documented as of this encounter
--- OUTSIDE RECORDS SUMMARY | 2024-06-15 10:31 | XMS_ITS | Encounter Summary ---
[place] [address] Care Team Providers Care Braid Pattern Setter Name Role Phone Mary Alice Cage APRN Primary Care Provider [phone] Reason for Referral * Consultation (Routine) - Closed Specialty Diagnoses / Procedures Referred By Chava alejo Referred To Contact Sleep Center Diagnoses ELO (obstructive sleep apnea) Procedures PRG POLYLSOM 6+ YRS SLEEP W CPAP W 4+ ADDL BELEM Emily Pacheco MD [facility] SLE[facility] [place] [address] [facility] Sleep Medicine [address] [place] [address] Referral ID Status Reason Start Date Expiration Date V isits Requested Visits Authorized [id number] Closed Test Only 05/03/2016 05/03/2017 1 1 Reason for Visit * Consultation (Routine) - Closed Specialty Diagnoses / Procedures Referred By Chava alejo Referred To Contact Sleep Center Diagnoses Snoring Excessive daytime sleepiness Unrefreshed by Shobha Urbano APRN [facility] [place] [address] [facility] Sleep Medicine [address] [place] [address] Referral ID Status Reason Start Date Expiration Date V isits Requested Visits Authorized [id number] Closed Test Only 04/23/2016 04/23/2017 1 1 Encounter Details Date Type Department Care Team (Late st Contact Info) Description 04/25/2016 8:30 PM EDT Procedure visit Sleep Center at [address] [place] [phone] Emily Marino MD [facility]EP [place] [address] ELO (obstructive sleep apnea); Nocturnal hypoxemia Social [...] - scattered hypopneas, predominantly arousal-based AHI: 30 [facility] AHI: 0 (includes apneas + only [...] for longer toassess whether this impacts the [facility] AHI. Recommendations: 1. Consider CPAP trial (will order split) [facility] REPORT of Split-Night Polysomnography [...] desat tiny. Hypopneas All RERA Total Count: 0 4 4 0 Mean Duration (sec): - 17.9 - 0 Longest Duration (sec): 0.0 21.2 - 0 Index (REM/NREM): - / 0.0 - / 4.8 0 / 4.8 - / 0.0 Index (Sup./Non-Sup.): 0.0 / 0.0 6.7 / 0.0 6.7 / 0.0 0.0 / 0.0 Index (Total): 0.0 4.8 4.8 0.0 *[facility]-defined hypopneas include only hypopneas with a >=4% oxygen desaturation. Includes hypopneas with an arousal or with a 3%-4% desaturation. [facility] Hypopneas not included. Periodic Breathing Total [...] (minutes) REM (minutes) All Sleep (minutes) <=90% 10.8 36.8 0.0 36.8 <=89% 6.5 36.0 0.0 36.0 <=88% 1.7 35.5 0.0 35.5 90-99% 18.8 12.7 0.0 12.7 80-89.9% 6.5 36.0 0.0 36.0 79-79.9% 0.0 0.0 0.0 0.0 60-69.9% 0.0 0.0 0.0 0.0 50-59.9% 0.0 0.0 0.0 0.0 <=50% 0.0 0.0 0.0 0.0 Transcutaneous CO2 Details [...] 0.5 Index (Total): 1.0 24.1 25.1 0.2 *[facility]-defined hypopneas include only hypopneas with a >=4% oxygen desaturation. Includes hypopneas with an arousal or with a 3%-4% desaturation. [facility] Hypopneas not included. Periodic Breathing Total [...] (minutes) REM (minutes) All Sleep (minutes) <=90% 1.7 0.1 0.0 0.1 <=89% 0.1 0.0 0.0 0.0 <=88% 0.1 0.0 0.0 0.0 90-99% 103.9 178.9 0.0 178.9 80-89.9% 0.1 0.0 0.0 0.0 79-79.9% 0.0 0.0 0.0 0.0 60-69.9% 0.0 0.0 0.0 0.0 50-59.9% 0.0 0.0 0.0 0.0 <=50% 0.0 0.0 0.0 0.0 Transcutaneous CO2 Details [...] of hypopneas: those associated with arousals or >=3% desaturations. Respiratory Indices (events per hour) IP/EP/O2 OAI LASHAWN JAZIEL HI* RDI 0/0/1 0.0 0.0 0.0 25.1 25.5 *Includes all types of hypopneas: those associated with arousals or >=3% desaturations. Respiratory Indices (events per hour) IP/EP/O2 AHI Supine Non-Sup. REM Non-REM 0/0/1 25.1 21.6 31.7 0.0 25.1 *Includes all types of hypopneas: those associated with arousals or >=3% desaturations. Oxygen Saturations Transcutaneous CO2 Levels (torr) [...] Hypoxemia documented in this encounter Care Teams Braid Pattern Setter Relationship Specialty Start Date End Date Mary Alice Cage APRN PCP - General 10/12/11 11/12/18 documented as of this encounter
--- OUTSIDE RECORDS SUMMARY | 2024-06-15 10:32 | XMS_ITS | Encounter Summary ---
[place] [address] Care Team Providers Care Hr Operations Advisor Name Role Phone [place] Mary Alicepham Drew APRN Primary Care Provider [phone] Reason for Referral * Consultation (Routine) - Closed Specialty Diagnoses / Procedures Referred By Contluisa t Referred To Contact Pain Management Diagnoses Chronic right-sided low back pain without sciatica Rios Acuna MD [facility] [place] [address] [facility] [address] [place] [address] Referral ID Status Reason Start Date Expiration Date V isits Requested Visits Authorized [id number] Closed Consult, Test & Treat 02/27/2016 02/26/2017 1 1 Reason for Visit * Reason Comments Back Pain lower back pain Right Leg Pain upper thigh Encounter Details Date Type Department Care Team (Late st Contact Info) Description 02/27/2016 3:20 PM EDT Office [place] [phone] Rios Acuna MD [facility] [place] [address] Chronic right-sided low back pain without sciatica [...] sciatica documented in this encounter Care Teams Hr Operations Advisor Relationship Specialty Start Date End Date Mary Alice Cage APRN PCP - General 10/12/11 11/12/18 documented as of this encounter
--- OUTSIDE RECORDS SUMMARY | 2024-06-15 10:32 | XMS_ITS | Encounter Summary ---
[place] [address] Care Team Providers Care Correctional Supply Supervisor Name Role Phone [place] Alice davis Rajendra ROY Primary Care Provider [phone] Reason for Visit * Reason Onset Date Comments Medication Reaction 11/07/2015 Encounter Details Date Type Department Care Team (Late st Contact Info) Description 11/07/2015 Telephone [place] [phone] Ej Gilbert, public health assistant Reaction Social History Tobacco Use Types Packs/Day [...] patient. Only phone number listed in chart [phone] disconnected. Patient sent [employer] message. documented in this encounter Plan of Treatment Not on file documented as of this encounter Visit Diagnoses Not on filedocumented in this encounter Care Teams Correctional Supply Supervisor Relationship Specialty Start Date End Date Mary Alice Cage APRN PCP - General 10/12/11 11/12/18 documented as of this encounter
--- OUTSIDE RECORDS SUMMARY | 2024-06-15 10:32 | XMS_ITS | Encounter Summary ---
Author Organization [facility] [address] Care Team Providers Care Photographic Aide Name Role Phone Mary Alice Cage APRN Primary Care Provider [phone] Reason for Referral * Consultation (Routine) - Specialty Diagnoses / Procedures Referred By Chava alejo Referred To Contact Sleep Center Diagnoses PAH (pulmonary artery hypertension) Osmany Holloway MD [facility] [place] [address] [facility] Sleep Medicine [address] [place] [address] Referral ID Status Reason Start Date Expiration Date V isits Requested Visits Authorized [id number] Consult, Test & Treat Connection Center 12/23/2015 12/22/2016 5 5 Encounter Details Date Type Department Care Team (Late st Contact Info) Description 12/23/2015 Orders [place] [address] Osmany Holloway MD [facility] [place] [address] PAH (pulmonary artery hypertension) Social [...] diseases documented in this encounter Care Teams Photographic Aide Relationship Specialty Start Date End Date Mary Alice Cage APRN PCP - General 10/12/11 11/12/18 documented as of this encounter
--- OUTSIDE RECORDS SUMMARY | 2024-06-15 10:32 | XMS_ITS | Encounter Summary ---
[place] [address] Care Team Providers Care Director Of State Name Role Phone DavidsonMary Alice davis Rajendra ROY Primary Care Provider [phone] Reason for Visit * Reason Onset Date Comments Follow-up 12/23/2015 Encounter Details Date Type Department Care Team (Late st Contact Info) Description 12/23/2015 Telephone [place] [address] Peg Abel, RN Follow-up Social History Tobacco [...] in this encounter Care Teams Director Of State Relationship Specialty Start Date End Date Mary Alice Cage APRN PCP - General 10/12/11 11/12/18 documented as of this encounter
--- OUTSIDE RECORDS SUMMARY | 2024-06-15 10:32 | XMS_ITS | Encounter Summary ---
[place] [address] Care Team Providers Care Stripper Opaquer Name Role Phone NilesMary Alice Rajendra ROY Primary Care Provider [phone] Reason for Visit * Auth/Cert Specialty Diagnoses / Procedures Referred By Chava alejo Referred To Contact Diagnoses Gerd monomity off meds 2 weeks Procedures PRO UPPER GI ENDOSCOPY, DIAGNOSTIC EGD, UPPER GI ENDOSCOPY Referral ID Status Reason Start Date Expiration Date Visits Re quested Visits Authorized [id number] 1 1 Encounter Details Date Type Department Care Team (Latest Contact Info) Description 10/26/2015 1:00 PM EDT Procedure [place] [address] Stef Paul RN Gastroesophageal reflux disease, esophagitis [...] of Donald procedure and use of the automation test engineer. documented in this encounter Plan of Treatment Not on file documented as of this encounter Visit Diagnoses Diagnosis Gastroesophageal reflux disease, esophagitis presence not specified documented in this encounter Care Teams Stripper Opaquer Relationship Specialty Start Date End Date Mary Alice Cage APRN PCP - General 10/12/11 11/12/18 documented as of this encounter
--- OUTSIDE RECORDS SUMMARY | 2024-06-15 10:32 | XMS_ITS | Encounter Summary ---
Author Organization [facility] [place] [address] Care Team Providers Care Economic Geographer Name Role Phone Mary Alice Cage APRN Primary Care Provider [phone] Encounter Details Date Type Department Care Team (Latest Contact Info) Description 10/31/2015 11:00 PM EDT Tech [place] [address] Justin Starkey MD [facility] DR [place]STRO[place] [address] Gastroesophageal reflux disease, esophagitis presence not specified [...] Starkey MD - 11/08/2015 11:57 AM EDT [id number] WIRELESS pH CAPSULE STUDY AFTER UPPER ENDOSCOPY Poppy Mclaughlin Female, 55 y.o., 1960 , SR None PCP: Mary Alice Cage ENGRAVER STEEL PLATE: None STUDY DATES: 10/26/15 to 10/28/15 INTERPRETATION DATE: 11/06/15 PROVIDER: Justin Star[place] ([id number]) INDICATION Reflux symptoms. Preoperative evaluation. NOTE: This [...] 14.72) Day Two Calculated DeMeester Score: 3.9 Dfhez-Dzezh-Rmqv DeMeester Score (Total): 13.0 Jzrmw-Iomuf-Itvo (Total) Fraction of Time with pH Less Than 4%: 4.5% Day One Symptoms Association Probability (SAP) for Heartburn: 0% Chest pain: 0% Regurgitation: 0% Day Two SAP for Heartburn: 0% Chest pain: 0% Regurgitation: 0% Qwbcx-Jutaw-Yffm SAP for Heartburn: 0% Chest pain: 0% [...] 95% are positive. Justin Starkey, PhD, MD family resource management professor, [employer] Chief, Section of Gastroenterology and Hepatology Formerly [facility] [place] [address] V: [phone] F: [phone] BEL/mian EC/CC: PCP - staff msg copy 11/07/15 Patient - mail copy 11/07/15 documented in this encounter Plan of Treatment Not on file documented as of this encounter Visit Diagnoses Diagnosis Gastroesophageal reflux disease, esophagitis presence not specified documented in this encounter Care Teams Economic Geographer Relationship Specialty Start Date End Date Mary Alice Cage APRN PCP - General 10/12/11 11/12/18 documented as of this encounter
--- OUTSIDE RECORDS SUMMARY | 2024-06-15 10:32 | XMS_ITS | Encounter Summary ---
[place] [address] Care Team Providers Care Gauge And Weigh Machine Operator Name Role Phone [place]quinMary Alice davis MANUELA Primary Care Provider [phone] Encounter Details Date Type Department Care Team (Late st Contact Info) Description 01/27/2016 Orders [place] [address] Lucretia Moreno LPN Low back pain, non-specific [...] 01-26-[address] Acuna [facility] staffmessage. documented in this encounter Plan of Treatment Not on file documented as of this encounter Visit Diagnoses Diagnosis Low back pain, non-specific documented in this encounter Care Teams Gauge And Weigh Machine Operator Relationship Specialty Start Date End Date Mary Alice Cage APRN PCP - General 10/12/11 11/12/18 documented as of this encounter
--- OUTSIDE RECORDS SUMMARY | 2024-06-15 10:32 | XMS_ITS | Encounter Summary ---
[place] [address] Care Team Providers Care Leadite Heater Name Role Phone CobbMary Alice davis Rajendra ROY Primary Care Provider [phone] Reason for Visit * Reason Onset Date Comments Other 10/20/2015 Explanation of A ppts Encounter Details Date Type Department Care Team (Late st Contact Info) Description 10/20/2015 Telephone [place]astroenterology [place] [address] Rosaura Amezcua Other (Explanation of [...] as there were four appts on her [employer]-Workboard page. Iwent over each GI appt, explained reason for each, and time for each: HREM, Donald/EGD, tech appt w BEL (told her not to show up for this and explained why), fup appt w BEL in November. Pt also asked about returning Donald shop firer/fireman and I reiterated what I told her when we booked the appt and what is in the letter she received: that the shop firer/fireman needs to be returned in person within 72h of capsule placement. I also reminded pt that her letter sent to her in Sep had her arrival and appt times as well as prep instructions, a floor map showing her the way to endo and a floor map showing her where to return the Donald shop firer/fireman. Pt said she wrote all this down and had her letter. -bcj documented in this encounter Plan of Treatment Not on file documented as of this encounter Visit Diagnoses Not on filedocumented in this encounter Care Teams Leadite Heater Relationship Specialty Start Date End Date Mary Alice Cage APRN PCP - General 3/2/12 4/3/19 documented as of this encounter
--- OUTSIDE RECORDS SUMMARY | 2024-06-15 10:32 | XMS_ITS | Encounter Summary ---
[place] [address] Care Team Providers Care Plastic Extrusion Operator Name Role Phone Mary Alice Cage APRN Primary Care Provider [phone] Reason for Visit * Diagnostic Test (Routine) - Closed Specialty Diagnoses / Procedures Referred By Chava t Referred To Contact Radiology Diagnoses Low back pain, non-specific Procedures MRI Lumbar Spine With/WO Contrast MRI Lumbar Spine Without Contrast (GENERIC) MRI Lumbar Spine With/WO Contrast Rios Acuna MD [facility] [place] [address] [place] [address] Referral ID Status Reason Start Date Expiration Date V isits Requested Visits Authorized [id number] Closed Specialty Service Requested 02/27/2016 02/26/2017 1 1 Encounter Details Date Type Department Care Team (Latest Contact Info) Description 02/27/2016 1:04 PM EDT - 02/27/2016 2:14 PM EDT Hospital [place] [address] Rios Acuna MD [facility] [place] [address] Low back pain, non-specific Discharge Disposition: Home [...] the clinical situation (Reference- Jarvik et al, [id number]). Findings: (Prevalence in patients without low back [...] mLs documented in this encounter Care Teams Plastic Extrusion Operator Relationship Specialty Start Date End Date Mary Alice Cage APRN PCP - General 10/12/11 11/12/18 documented as of this encounter
--- OUTSIDE RECORDS SUMMARY | 2024-06-15 10:32 | XMS_ITS | Encounter Summary ---
[place] [address] Care Team Providers Care Dry Food Products Mixer Name Role Phone AddisonMary Alice davis Rajendra ROY Primary Care Provider Reason for Visit * Auth/Cert Specialty Diagnoses / Procedures Referred By Chava alejo Referred To Contact Diagnoses Gerd monomity off meds 2 weeks Procedures PRO UPPER GI ENDOSCOPY, DIAGNOSTIC EGD, UPPER GI ENDOSCOPY Referral ID Status Reason Start Date Expiration Date Visits Re quested Visits Authorized [id number] 1 1 Encounter Details Date Type Department Care Team (Latest Contact Info) Description 10/26/2015 11:38 AM EDT - 10/26/2015 2:40 PM EDT Hospital Encounter [place] [address] Apolinar Sepulveda MD [facility] [place] [address] Discharge Disposition: Home Social History Tobacco Use [...] Other Instructions Be sure to carry your investigator cash shortage within 3 feet at all times . [...] better as expected. Saturday-Saturday Same Day Endo [phone] 7a-8p Otherwise contact [phone] and ask to speak to the scalp treatment specialist bronze plater Ade Paul RN [phone] if any problems with investigator cash shortage Follow-up care is a liriano part of [...] CONCENTRATOR MISC) 3 L by [facility]Non-Drug; Combo Route) route nightly. diphenoxylate-atropine [...] Sig Dispense Refill ??? Miscellaneous Medical Supply [facility] Face mask for nocturnal O2 1 each PRN ??? HYDROcodone-acetaminophen (VICODIN) 5-300 mg Tablet Take 1 tablet by mouth every 4 hours. 10 mg ??? simvastatin (ZOCOR) 20 mg Tablet Take 20 mg by mouth nightly. ??? OXYGEN-AIR DELIVERY SYSTEMS ( CLASSIC OXYGEN CONCENTRATOR [facility]) by [facility]Non-Drug; Combo Route) route nightly. ??? [...] [facility]Non-Drug; Combo Route) route daily. ??? [...] PM EDT 10/26/2015 1:[address] [facility] - 10/26/2015 1:51 PM EDT Specimen requisition ordered. ??Separate Pathology report to follow Apolinar Sepulveda MD PATHOLOGY/CYTOLOGY ORDERABLES [facility] [place] [address] * Specimen to Pathology (surgical or derm) (10/26/2015 1:49 PM EDT) AP Specimen 10/26/2015 1:49 PM EDT 10/26/2015 1:[address] [facility] - 10/26/2015 1:49 PM EDT Specimen requisition ordered. ??Separate Pathology report to follow Apolinar Sepulveda MD PATHOLOGY/CYTOLOGY ORDERABLES Performing Organization Address [facility] [place] [address] * Specimen to Pathology (surgical or derm) (10/26/2015 1:48 PM EDT) AP Specimen 10/26/2015 1:48 PM EDT 10/26/2015 1:[address] [facility] - 10/26/2015 1:48 PM EDT Specimen requisition ordered. ??Separate Pathology report to follow Apolinar Sepulveda MD PATHOLOGY/CYTOLOGY ORDERABLES Performing Organization Address [facility] de Phone Number [facility] [place] [address] * Surgical Pathology Report (10/26/2015 1:32 PM EDT) Final Diagnosis [id number] ? Location: The signing pathologist has (i) [...] Four, averaging 0.3 cm. Tissue Description: Soft, znuiga-pink tissue. Sections/Proces sing: (T1) B - Labeled/Fixativ e: Random antrum, formalin. Quantity/Size: Two, averaging 0.3 cm. Tissue Description: Soft, zuniga-pink tissue. Sections/Proces sing: (T1) ??ejr 10/28/2015 12:[address] [facility] GI Biopsy 10/26/2015 1:32 PM EDT 10/26/2015 1:32 PM EDT GI Biopsy 10/26/2015 1:32 PM EDT 10/26/2015 1:32 PM EDT Apolinar Sepulveda MD PATHOLOGY/CYTOLOGY ORDERABLES Performing Organization Address [facility] Co de Phone Number [facility] [place] [address] * Specimen to Pathology (surgical or derm) (10/26/2015 1:32 PM EDT) AP Specimen 10/26/2015 1:32 PM EDT 10/26/2015 1:[address] [facility] - 10/26/2015 1:32 PM EDT Specimen requisition ordered. ??Separate Pathology report to follow Apolinar Sepulveda MD PATHOLOGY/CYTOLOGY ORDERABLES Performing Organization Address [facility]/ZIP Co de Phone Number [facility] [place] [address] * Specimen to Pathology (surgical or derm) (10/26/2015 1:32 PM EDT) AP Specimen 10/26/2015 1:32 PM EDT 10/26/2015 1:[address] [facility] - 10/26/2015 1:32 PM EDT Specimen requisition ordered. ??Separate Pathology report to follow Apolinar Sepulveda MD PATHOLOGY/CYTOLOGY ORDERABLES [facility] [place] [address] documented in this encounter Visit Diagnoses Not [...] time) documented in this encounter Care Teams Dry Food Products Mixer Relationship Specialty Start Date End Date Mary Alice Cage APRN PCP - General 10/12/11 11/12/18 documented as of this encounter
--- OUTSIDE RECORDS SUMMARY | 2024-06-15 10:32 | XMS_ITS | Encounter Summary ---
Author Organization [facility] [place] [address] Care Team Providers Care Lead Generator Name Role Phone CampMary Alice advis Rajendra ROY Primary Care Provider [phone] Reason for Visit * Reason Comments Follow-up Encounter Details Date Type Department Care Team (Latest Contact Info) Description 01/24/2016 9:00 AM EDT Office Visit [place] [address] Justin Starkey MD [facility] [place] [address] Gastroesophageal reflux disease, esophagitis presence not specified; [...] SR None PCP: Mary Alice Cage APRN [place]: None REASON FOR VISIT This is a [...] HISTORY 1. Emergency hernia repair May 2011, [place]. 2. Cholecystectomy 11/24/12. 3. Cervical spine fusion surgery August 2013. 4. Lumbar diskectomy 08/2014. HABITS Positive tobacco. No alcohol for ikby-fct-e-half years. FAMILY HISTORY Noncontributory. SOCIAL HISTORY for [...] EGD 10/26/15: normal; Z-line at 41. 9. Fifsn-cifaz-ayep wireless pH capsule 10/26/15 to 10/28/15 off [...] WITH PATIENT Total Minutes: 40 Minutes of Umag-vt-Hyfy Counseling: The entire visit was spent in iggv-ge-eyyc counseling and coordination of care. Justin Starkey, PhD, MD hotel manager, [employer] Chief, Section of Gastroenterology and Hepatology [place] [address] V: [phone] F: [phone] BEL/mian CC/EC: PCP - staff msg copy 01/27/16 [facility] Consultant - staff msg copy 01/27/16 documented in this encounter Plan of Treatment Not on file documented as of this encounter Visit Diagnoses Diagnosis Gastroesophageal reflux disease, esophagitis presence not specified Chronic abdominal pain Abdominal pain, unspecified site Irritable bowel syndrome with diarrhea Irritable bowel syndrome documented in this encounter Care Teams Lead Generator Relationship Specialty Start Date End Date Mary Alice Cage APRN PCP - General 10/12/11 11/12/18 documented as of this encounter
--- OUTSIDE RECORDS SUMMARY | 2024-06-15 10:32 | XMS_ITS | Encounter Summary ---
[place] [address] Care Team Providers Care Pattern Developer Name Role Phone NilesMary Alice Rajendra ROY Primary Care Provider [phone] Reason for Visit * Auth/Cert Specialty Diagnoses / Procedures Referred By Chava alejo Referred To Contact Diagnoses Gerd monomity off meds 2 weeks Procedures PRO UPPER GI ENDOSCOPY, DIAGNOSTIC EGD, UPPER GI ENDOSCOPY Referral ID Status Reason Start Date Expiration Date Visits Re quested Visits Authorized [id number] 1 1 Encounter Details Date Type Department Care Team (Latest Contact Info) Description 10/26/2015 10:00 AM EDT Procedure [place] [address] Stef Paul RN Gastroesophageal reflux disease, esophagitis [...] UPPER GI ENDOSCOPY (10/26/2015 12:27 PM EDT) [facility] UPPER GI ENDOSCOPY [facility] Endoscopy Patient Name: Poppy Mclaughlin ? Procedure Date: 10/26/2015 12:27 PM ? N: [id number] ? Date of : 1960 ? Age: 55 ? Order #: [id number] ? Procedure: ? Upper GI endoscopy Indications: [...] specified documented in this encounter Care Teams Pattern Developer Relationship Specialty Start Date End Date Mary Alice Cage APRN PCP - General 10/12/11 11/12/18 documented as of this encounter
--- OUTSIDE RECORDS SUMMARY | 2024-06-15 10:32 | XMS_ITS | Encounter Summary ---
Author Organization [facility] [place] [address] Care Team Providers Care Rotary Surface Grinder Name Role Phone StaffordMary Alice davis Rajendra ROY Primary Care Provider [phone] Encounter Details Date Type Department Care Team (Latest Contact Info) Description 12/09/2015 2:30 PM EDT - 12/09/2015 11:59 PM EDT Hospital [place] [id number] COPD, moderate Discharge Disposition: Home Social History [...] Spacing Device Spcr 2 puffs by [facility]Non-Drug; Combo Route) route daily. [...] classified documented in this encounter Care Teams Rotary Surface Grinder Relationship Specialty Start Date End Date Mary Alice Cage APRN PCP - General 10/12/11 11/12/18 documented as of this encounter
--- OUTSIDE RECORDS SUMMARY | 2024-06-15 10:32 | XMS_ITS | Encounter Summary ---
Author Organization [facility] [place] [address] Care Team Providers Care Center Machine Operator Name Role Phone PageMary Alice davis Rajendra ROY Primary Care Provider [phone] Reason for Visit * Reason Comments Follow-up Encounter Details Date Type Department Care Team (Late st Contact Info) Description 03/19/2016 10:00 AM EDT Office [place] [address] Osmany Holloway MD [facility] [place] [address] Chronic diarrhea; COPD, moderate Social History Tobacco [...] 30 capsule 5 ??? Miscellaneous Medical Supply [facility] Face mask for nocturnal O2 1 each PRN ??? HYDROcodone-acetaminophen (VICODIN) 5-300 mg Tablet Take 1 tablet by mouth every 4 hours. 10 mg ??? simvastatin (ZOCOR) 20 mg Tablet Take 20 mg by mouth nightly. ??? OXYGEN-AIR DELIVERY SYSTEMS ([facility] OXYGEN CONCENTRATOR [facility]) by [facility].(Non-Drug; Combo Route) [...] Spacing Device Spcr 2 puffs by [facility].(Non-Drug; Combo Route) [...] intervals supplied above were not validated at [facility]. Results from pediatric patients should be interpreted [...] LABORATORY Est Glomerular Filtration Rate 47(L) >=60 [facility] Comment: This estimated GFR [...] the following links into your internet browser. [email or web address] Blood specimen (specimen) 03/19/2016 11:27 AM EDT 03/19/2016 11:41 AM EDT Narrative Resulting Agency Comment Spec In Lab Osmany Overton MD CHEMISTRY ORDERABLE S [facility] [place] [address] documented in this encounter Visit Diagnoses Diagnosis Chronic diarrhea Diarrhea COPD, moderate Chronic airway obstruction, not elsewhere classified documented in this encounter Care Teams Center Machine Operator Relationship Specialty Start Date End Date Mary Alice Cage APRN PCP - General 10/12/11 11/12/18 documented as of this encounter
--- OUTSIDE RECORDS SUMMARY | 2024-06-15 10:32 | XMS_ITS | Encounter Summary ---
[place] [address] Care Team Providers Care Financial Retirement Plan Specialist Name Role Phone [place] ClaireMary Alice davis MANUELA Primary Care Provider [phone] Encounter Details Date Type Department Care Team (Late st Contact Info) Description 04/23/2016 Orders Only Sleep Center at [facility] [address] [place] [address] Shobha Duke APRN [facility] [place] [address] Social History Tobacco Use Types Packs/Day Years [...] on filedocumented in this encounter Care Teams Financial Retirement Plan Specialist Relationship Specialty Start Date End Date Mary Alice Caeg APRN PCP - General 10/12/11 11/12/18 documented as of this encounter
--- OUTSIDE RECORDS SUMMARY | 2024-06-15 10:32 | XMS_ITS | Encounter Summary ---
Author Organization [facility] [place] [address] Care Team Providers Care Circulation Analyst Name Role Phone Mary Alice Cage MANUELA Primary Care Provider [phone] Encounter Details Date Type Department Care Team (Late st Contact Info) Description 09/26/2015 Orders [place] [address] Osmany Holloway MD [facility] PULMONARY MEDICINE [place] [id number] Syncope, unspecified syncope type Social History Tobacco [...] type documented in this encounter Care Teams Circulation Analyst Relationship Specialty Start Date End Date Mary Alice Cage APRN PCP - General 10/12/11 11/12/18 documented as of this encounter
--- OUTSIDE RECORDS SUMMARY | 2024-06-15 10:32 | XMS_ITS | Encounter Summary ---
[place] [address] Care Team Providers Care Grounding Engineer Name Role Phone JuniataMary Alice davis MANUELA Primary Care Provider [phone] Encounter Details Date Type Department Care Team (Late st Contact Info) Description 11/25/2015 Telephone [place] [phone] Peg Abel, RN Social History Tobacco Use [...] on 11/21 by the order of her surgical garment assembly supervisor. She called that her Zio cameoff after shower yesterday. She taped the bottom part of it. Wondering what se should do. ? She did call somebody yesterday and was expecting a call today (but it didn't happen). ? I will forward the note and talk to Zio department tomorrow. ? Her mom's apartment number is [phone] (she is leaving some time tomorrow to got there). ? Will forward note to Dr. Holloway as well. Pt Was in rotary soil stabilizer in the Pulmonary [facility]. The Zio patch [...] on filedocumented in this encounter Care Teams Grounding Engineer Relationship Specialty Start Date End Date Mary Alice Cage APRN PCP - General 10/12/11 11/12/18 documented as of this encounter
--- OUTSIDE RECORDS SUMMARY | 2024-06-15 10:32 | XMS_ITS | Encounter Summary ---
[place] [address] Care Team Providers Care Die Attaching Machine Tender Name Role Phone Mary Alice Cage APRN Primary Care Provider [phone] Encounter Details Date Type Department Care Team (Late st Contact Info) Description 01/30/2016 Telephone [place] [address] Gardenia Bueno CMA GASTROENTEROLOGY DEPT Social History [...] Prior Authorization 4L Gastroenterology / [place] [address] Subscriber Insurance: optum rx Physician: Justin Starkey [...] on filedocumented in this encounter Care Teams Die Attaching Machine Tender Relationship Specialty Start Date End Date Mary Alice Cage APRN PCP - General 10/12/11 11/12/18 documented as of this encounter
--- OUTSIDE RECORDS SUMMARY | 2024-06-15 10:32 | XMS_ITS | Encounter Summary ---
Author Organization [facility] [place] [address] Care Team Providers Care Bisque Ware Dipper Name Role Phone Mary Alice Cage MANUELA Primary Care Provider [phone] Encounter Details Date Type Department Care Team (Latest Contact Info) Description 11/22/2015 10:00 AM EDT - 11/22/2015 11:59 PM EDT Hospital Encounter Non-Invasive [place] [phone] Osmany Holloway MD [facility] PULMONARY MEDICINE [place] [id number] Syncope, unspecified syncope type Discharge Disposition: Home [...] Inhalational Spacing Device Spcr 2 puffs by [facility].(Non-Drug; Combo Route) route daily. promethazine [...] type documented in this encounter Care Teams Bisque Ware Dipper Relationship Specialty Start Date End Date Mary Alice Cage APRN PCP - General 10/12/11 11/12/18 documented as of this encounter
--- OUTSIDE RECORDS SUMMARY | 2024-06-15 10:32 | XMS_ITS | Encounter Summary ---
[place] [address] Care Team Providers Care Industrial Eng Name Role Phone Mary Alice Cage APRN Primary Care Provider Encounter Details Date Type Department Care Team (Late st Contact Info) Description 01/27/2016 Telephone [place] [phone] Eloise Nicole Social History Tobacco Use Types [...] filedocumented in this encounter Care Teams Industrial Eng Relationship Specialty Start Date End Date Mary Alice Cage APRN PCP - General 10/12/11 11/12/18 documented as of this encounter
--- OUTSIDE RECORDS SUMMARY | 2024-06-15 10:32 | XMS_ITS | Encounter Summary ---
Author Organization [facility] [address] Care Team Providers Care Street Department Dispatcher Name Role Phone Mary Alice Cage APRN Primary Care Provider Reason for Referral * Consultation (Routine) - Closed Specialty Diagnoses / Procedures Referred By Contac t Referred To Contact Sleep Center Diagnoses Snoring Excessive daytime sleepiness Unrefreshed by sleep Shobha Duke APRN [facility] [place] [address] [facility] Sleep Medicine [address] [place] [address] Referral ID Status Reason Start Date Expiration Date V isits Requested Visits Authorized [id number] Closed Test Only 04/23/2016 04/23/2017 1 1 Reason for Visit * Consultation (Routine) - Specialty Diagnoses / Procedures Referred By Contac t Referred To Contact Sleep Center Diagnoses PAH (pulmonary artery hypertension) Osmany Holloway MD [facility] [place] [address] [facility] Sleep Medicine [address] [place] [address] Referral ID Status Reason Start Date Expiration Date V isits Requested Visits Authorized [id number] Consult, Test & Treat Connection Center 12/23/2015 12/22/2016 5 5 Encounter Details Date Type Department Care Team (Late st Contact Info) Description 04/23/2016 10:00 AM EDT Office Visit Sleep Center at [address] [place] [address] Shobha Duke, MANUELA [facility] [place] [address] Snoring; Excessive daytime sleepiness; Unrefreshed by sleep [...] AM EDT Sleep Medicine Consultation Note HPI: Ppopy Mclaughlin is a 55 y.o. female seen [...] HPI continues below. Daytime Symptoms: Patient-reported scores: Windber: 13 MEAGAN 24 Other Associated Sleep Symptoms: [...] CHOLANGIOGRAM performed by Abel Carlton MD at [facility] MAIN OR ??? Pro arthrodesis, ant interbody,decompression; cervical below c2 09/08/2013 ARTHRODESIS, ANT INTERBODY,DECOMPRESSION; CERVICAL BELOW C2 performed by Rios Acuna MD at [facility] MAIN OR ??? Pro arthrd ant interdy cervcl belw c2 ea addl ntrspc 09/08/2013 @ARTHRODESIS ANT INTERBDY CERVCL BELOW C2 EA ADDL INTRSPACE performed by Rios Acuna MD at [facility] MAIN OR ??? Pro anterior instrumentation 2-3 vertebral segments 09/08/2013 @ANT. SPINAL INSTRUMENTATION, 2-3 VERTEBRA, SEGMENTED performed by Rios Acuna MD at [facility] [place] ??? Pro allograft for spine surgery only structural 09/08/2013 ALLOGRAFT FOR SPINE SURGERY ONLY; STRUCTUAL performed by Rios Acuna MD at [facility] MAIN OR ??? Pro decompress spinal cord, 1 seg Right 08/31/2014 TRANSPEDICULAR LUMBAR DECOMPRESSION SPINAL CORD,EQUINA & NERVE ROOTS, ONE LVL. performed by Rios Acuna MD at [facility] MAIN OR ??? Right 08/31/2014 MODIFIER L4 performed by Rios Acuna MD at [facility] MAIN OR ??? Right 08/31/2014 MODIFIER L5 performed by Rios Acuna MD at [facility] OR ??? Pro upper gi endoscopy, diagnostic N/A 10/26/2015 EGD, UPPER GI ENDOSCOPY performed by Apolinar Sepulveda MD at [facility] ENDOSCOPY ??? Pro upper gi endoscopy, biopsy N/A 10/26/2015 UPPER GASTROINTESTINAL ENDOSCOPY,WITH BIOPSY SINGLE OR MULTIPLE performed by Apolinar Sepulveda MDat [facility] ENDOSCOPY Past Medical History: Past Medical [...] capsule 5 ??? Miscellaneous Medical Supply [facility] Face mask for nocturnal O2 1 each PRN ??? simvastatin (ZOCOR) 20 mg Tablet Take 20 mg by mouth nightly. ??? OXYGEN-AIR DELIVERY SYSTEMS ([facility]GEN [facility] by [facility]Non-Drug; Combo Route) route nightly. ??? chlorpheniramine (CHLOR-TRIMETON) [...] Spacing Device Spcr 2 puffs by [facility].(Non-Drug; Combo Route) route daily. ??? fluticasone (FLONASE) [...] that study results can be called to [phone] (M) and a detailed message left if [...] disturbances documented in this encounter Care Teams Street Department Dispatcher Relationship Specialty Start Date End Date Mary Alice Cage APRN PCP - General 10/12/11 11/12/18 documented as of this encounter
--- OUTSIDE RECORDS SUMMARY | 2024-06-15 10:32 | XMS_ITS | Encounter Summary ---
Author Organization [facility] [place] [address] Care Team Providers Care Laboratory Animal Facility Supervisor Name Role Phone [place] Alice davis Rajendra ROY Primary Care Provider [phone] Reason for Visit * Reason Comments Follow-up Encounter Details Date Type Department Care Team (Late st Contact Info) Description 12/09/2015 3:00 PM EDT Office [place] [address] Osmany Holloway MD [facility] [place] [address] COPD, moderate Social History Tobacco Use Types [...] OXYGEN-AIR DELIVERY SYSTEMS ([facility] OXYGEN CONCENTRATOR [facility]) by [facility].(Non-Drug; Combo Route) route nightly. ??? [...] Spacing Device Spcr 2 puffs by [facility].(Non-Drug; Combo Route) route daily. ??? [...] classified documented in this encounter Care Teams Laboratory Animal Facility Supervisor Relationship Specialty Start Date End Date Mary Alice Cage APRN PCP - General 10/12/11 11/12/18 documented as of this encounter
--- OUTSIDE RECORDS SUMMARY | 2024-06-15 10:32 | XMS_ITS | Encounter Summary ---
Author Organization [facility] Address [facility] [place] [address] Care Team Providers Care Suspender Maker Name Role Phone Mary Alice Cage MANUELA Primary Care Provider [phone] Encounter Details Date Type Department Care Team (Latest Contact Info) Description 02/27/2016 2:15 PM EDT - 02/27/2016 11:59 PM EDT Hospital Encounter XRay at [address] [place] [address] Rios Acuna MD [facility] [place] [place] [address] Low back pain, unspecified back pain laterality, [...] [facility]Non-Drug; Combo Route) route daily. promethazine (PHENERGAN) 25 [...] unspecified documented in this encounter Care Teams Suspender Maker Relationship Specialty Start Date End Date Mary Alice Cage APRN PCP - General 10/12/11 11/12/18 documented as of this encounter
--- OUTSIDE RECORDS SUMMARY | 2024-06-15 10:32 | XMS_ITS | Encounter Summary ---
[place] [address] Care Team Providers Care Packaging Engineer Name Role Phone Niles Mary Alicepham Drew APRN Primary Care Provider [phone] Reason for Visit * Reason Comments Pain Management * Consultation (Routine) - Closed Specialty Diagnoses / Procedures Referred By Chava t Referred To Contact Pain Management Diagnoses Chronic right-sided low back pain without sciatica Rios Acuna MD [facility] [place] [address] [facility] [address] [place] [phone] Referral ID Status Reason Start Date Expiration Date V isits Requested Visits Authorized [id number] Closed Consult, Test & Treat 02/27/2016 02/26/2017 1 1 Encounter Details Date Type Department Care Team (Latest Contact Info) Description 03/27/2016 3:00 PM EDT Office [place] [address] Kim Forbes DO [facility] [place] [address] Radiculopathy of lumbar region Social History Tobacco [...] benefits, and indications. KIM FORBES DO, MPH Supervisor Filtration of Anesthesiology[facility] at [facility] Gear Machine Operator General, Pain Medicine Fellowship [employer]BP[employer] - Subspecialty board [...] unspecified documented in this encounter Care Teams Packaging Engineer Relationship Specialty Start Date End Date Mary Alice Cage APRN PCP - General 10/12/11 11/12/18 documented as of this encounter
--- OUTSIDE RECORDS SUMMARY | 2024-06-15 10:32 | XMS_ITS | Encounter Summary ---
Author Organization [facility] [address] Care Team Providers Care Manager Strategic Partnerships Name Role Phone SangamonMary Alice davis Rajendra ROY Primary Care Provider [phone] Reason for Visit * Auth/Cert Specialty Diagnoses / Procedures Referred By Chava alejo Referred To Contact Diagnoses Gerd monomity off meds 2 weeks Procedures PRO UPPER GI ENDOSCOPY, DIAGNOSTIC EGD, UPPER GI ENDOSCOPY Referral ID Status Reason Start Date Expiration Date Visits Re quested Visits Authorized [id number] 1 1 Encounter Details Date Type Department Care Team (Late st Contact Info) Description 10/26/2015 1:00 PM EDT - 10/26/2015 1:30 PM EDT [place] [address] Apolinar Sepulveda MD [facility] [place] [address] EGD, UPPER GI ENDOSCOPY (WRVU 2.09) Social [...] Other Instructions Be sure to carry your management instructor within 3 feet at all times . [...] better as expected. Saturday-Saturday Same Day Endo [phone] 7a-8p Otherwise contact [phone] and ask to speak to the monkey breeder arson and bomb investigator Ade Paul RN [phone] if any problems with management instructor Follow-up care is a liriano part of [...] MISC) 3 L by [facility].(Non-Drug; Combo Route) route nightly. diphenoxylate-atropine (LOMOTIL) 2.5-0.025 [...] Sig Dispense Refill ??? Miscellaneous Medical Supply [facility] Face mask for nocturnal O2 1 each PRN ??? HYDROcodone-acetaminophen (VICODIN) 5-300 mg Tablet Take 1 tablet by mouth every 4 hours. 10 mg ??? simvastatin (ZOCOR) 20 mg Tablet Take 20 mg by mouth nightly. ??? OXYGEN-AIR DELIVERY SYSTEMS ( CLASSIC OXYGEN CONCENTRATOR [facility]) by [facility].(Non-Drug; Combo Route) route nightly. ??? [...] [facility] [place]Non-Drug; Combo Route) route daily. ??? [...] MD PATHOLOGY/CYTOLOGY ORDERABLES [facility] [place] [address] * Specimen to Pathology (surgical or derm) (10/26/2015 1:49 PM EDT) AP Specimen 10/26/2015 1:49 PM EDT 10/26/2015 1:[address] [facility] - 10/26/2015 1:49 PM EDT Specimen requisition ordered. ??Separate Pathology report to follow Apolinar Sepulveda MD PATHOLOGY/CYTOLOGY ORDERABLES Performing Organization Address [facility] [place] [place] [address] * Specimen to Pathology (surgical or derm) (10/26/2015 1:48 PM EDT) AP Specimen 10/26/2015 1:48 PM EDT 10/26/2015 1:[address] [facility] - 10/26/2015 1:48 PM EDT Specimen requisition ordered. ??Separate Pathology report to follow Apolinar Sepulveda MD PATHOLOGY/CYTOLOGY ORDERABLES Performing Organization Address [facility] Phone Number [facility] [place] [address] * Surgical Pathology Report (10/26/2015 1:32 PM EDT) Pathologist [facility] Final Diagnosis [id number] ? Location: The signing pathologist has (i) [...] Sepulveda MD PATHOLOGY/CYTOLOGY ORDERABLES Performing Organization Address [facility] Co de Phone Number [facility] [place] [address] * Specimen to Pathology (surgical or derm) (10/26/2015 1:32 PM EDT) AP Specimen 10/26/2015 1:32 PM EDT 10/26/2015 1:[address] [facility] - 10/26/2015 1:32 PM EDT Specimen requisition ordered. ??Separate Pathology report to follow Apolinar Sepulveda MD PATHOLOGY/CYTOLOGY ORDERABLES Performing Organization Address [facility] [place] [address] * Specimen to Pathology (surgical or derm) (10/26/2015 1:32 PM EDT) AP Specimen 10/26/2015 1:32 PM EDT 10/26/2015 1:[address] [facility] - 10/26/2015 1:32 PM EDT Specimen requisition ordered. ??Separate Pathology report to follow Apolinar Sepulveda MD PATHOLOGY/CYTOLOGY ORDERABLES [facility] [place] [address] documented in this encounter Visit Diagnoses Not [...] see fentanyl same time)1308 (Given - Provider: pAolinar Sepulveda MD - Comment: see fentanyl same time)1311 (Given - Provider: Apolinar Sepulveda MD - Comment: see fentanyl same time)1314 (Given - Provider: Apolinar Sepulveda MD - Comment: see fentanyl same time) documented in this encounter Care Teams Manager Strategic Partnerships Relationship Specialty Start Date End Date Mary Alice Cage APRN PCP - General 10/12/11 11/12/18 documented as of this encounter
--- OUTSIDE RECORDS SUMMARY | 2024-06-15 10:32 | XMS_ITS | Encounter Summary ---
Author Organization Formerly [facility] [address] Care Team Providers Care Merchant Police Name Role Phone LowndesMary Alice davis Rajendra ROY Primary Care Provider [phone] Reason for Visit * Reason Comments Right Leg Pain Encounter Details Date Type Department Care Team (Latest Contact Info) Description 03/27/2016 1:00 PM EDT Procedure [place] [address] Melchor Hartman [facility] [place] [address] Spinal stenosis, lumbar region, without neurogenic claudication [...] medications: Omnipaque (contrast dye) and Dexamethasone Sodium Nnfuampfk02 mg. During regular business hours, please phone [...] No 2. Patient states they have a road driver to transport after procedure? Yes 3. [...] the entire procedure. Melchor Hartman DO, MPH [facility]-subspecialty board certification in Pain Medicine Attending Physician-Pain Management Thank you for the referral! CC: Mary Alice Domingo, MANUELA [address] [place] [address] MARY ALICE DOMINGO, MANUELA [address] [place] [address] documented in this encounter Plan of Treatment [...] the entire procedure. Melchor Hartman DO, [facility]-subspecialty board certification in Pain Medicine Attending Physician-Pain Management Thank you for the referral! CC: Mary Alice Domingo APRN [address] [place] [address] MARY ALICE DOMINGO APRN [address] [place] [address] Melchor Hartman V, NEUROLOGY ORDERABLES documented in [...] mL documented in this encounter Care Teams Merchant Police Relationship Specialty Start Date End Date Mary Alice Domingo APRN PCP - General 10/12/11 11/12/18 documented as of this encounter
--- OUTSIDE RECORDS SUMMARY | 2024-06-15 10:32 | XMS_ITS | Encounter Summary ---
Author Organization [facility] [place] [address] Care Team Providers Care Purchasing Manager/Sales Name Role Phone WapelloMary Alice davis Rajendra ROY Primary Care Provider Reason for Visit * Auth/Cert Specialty Diagnoses / Procedures Referred By Chava alejo Referred To Contact Diagnoses Gerd monomity off meds 2 weeks Procedures PRO UPPER GI ENDOSCOPY, DIAGNOSTIC EGD, UPPER GI ENDOSCOPY Referral ID Status Reason Start Date Expiration Date Visits Re quested Visits Authorized [id number] 1 1 Encounter Details Date Type Department Care Team (Latest Contact Info) Description 10/26/2015 5:00 PM EDT Tech [place] [address] Justin Starkey MD [facility] DR [place] [address] Gastroesophageal reflux disease, esophagitis presence not specified [...] PM EDT HIGH-RESOLUTION ESOPHAGEAL MANOMETRY Poppy Mclaughlin [address] [place] [id number] : 1960 STUDY DATE: 10-26-2015 PROVIDER: Justin Star[place] ([id number]) INDICATION GERD; history of esophageal spasms METHODS [...] measured. Water swallows were provided after a 3-nn-2-minute accommodation period to assess LES function andfunction [...] on this study. Justin Starkey, PhD, MD photographer apprentice lithographic, [facility] [employer] Chief, Section of Gastroenterology and Hepatology Formerly [facility] [place] [address] V: [phone] F: [phone] CC/EC: PCP Patient documented in this encounter Plan of Treatment Not on file documented as of this encounter Visit Diagnoses Diagnosis Gastroesophageal reflux disease, esophagitis presence not specified documented in this encounter Care Teams Purchasing Manager/Sales Relationship Specialty Start Date End Date Mary Alice Cage APRN PCP - General 10/12/11 11/12/18 documented as of this encounter
--- OUTSIDE RECORDS SUMMARY | 2024-06-15 10:32 | XMS_ITS | Encounter Summary ---
[place] [address] Care Team Providers Care Construction Technology Instructor Name Role Phone Mary Alice Cage MANUELA Primary Care Provider [phone] Reason for Visit * Reason Onset Date Comments Results 11/14/2015 Encounter Details Date Type Department Care Team (Late st Contact Info) Description 11/14/2015 Telephone [place] [phone] Edgardo Paul, RN Results Social History Tobacco [...] patent provided in her VM from 11/11/15 ([phone]), no answer. LM that (per 11/02/15 letter [...] on filedocumented in this encounter Care Teams Construction Technology Instructor Relationship Specialty Start Date End Date Mary Alice Cage APRN PCP - General 10/12/11 11/12/18 documented as of this encounter
--- OUTSIDE RECORDS SUMMARY | 2024-06-15 10:32 | XMS_ITS | Encounter Summary ---
Author Organization [facility] [address] Care Team Providers Care Calculus Tutor Name Role Phone GuayanillaMary Alice davis Rajendra ROY Primary Care Provider [phone] Encounter Details Date Type Department Care Team (Latest Contact Info) Description 03/19/2016 9:15 AM EDT - 03/19/2016 11:59 PM EDT Hospital En[place] [address] COPD, moderate Discharge Disposition: Home Social History [...] 05/16/2016 sulfamethoxazole-trim ethoprim (BACTRIM DS) 800-160 mg TabletIndications:MANAGER COSMETIC D, moderate Take 1 tablet by mouth [...] classified documented in this encounter Care Teams Calculus Tutor Relationship Specialty Start Date End Date Mary Alice Cage APRN PCP - General 10/12/11 11/12/18 documented as of this encounter
--- OUTSIDE RECORDS SUMMARY | 2024-06-15 10:32 | XMS_ITS | Encounter Summary ---
[place] [address] Care Team Providers Care Endless Track Vehicle Supervisor Name Role Phone Mary Alice Cage APRN Primary Care Provider [phone] Reason for Visit * Reason Onset Date Comments Follow-up 12/13/2015 Encounter Details Date Type Department Care Team (Late st Contact Info) Description 12/13/2015 Tele[place] [address] Peg Abel, RN Follow-up Social History Tobacco [...] on filedocumented in this encounter Care Teams Endless Track Vehicle Supervisor Relationship Specialty Start Date End Date Mary Alice Cage APRN PCP - General 10/12/11 11/12/18 documented as of this encounter
--- OUTSIDE RECORDS SUMMARY | 2024-06-15 10:32 | XMS_ITS | Encounter Summary ---
[place] [address] Care Team Providers Care Senior Research Scientist Name Role Phone PecosMary Alice davis Rajendra ROY Primary Care Provider Encounter Details Date Type Department Care Team (Late st Contact Info) Description 09/16/2015 Telephone [place] [address] Ines Lopez, RN Social History Tobacco Use [...] EST Order for overnight oximetry faxed to [facility]. Order for face mask for oxygen faxed to [facility]. documented in this encounter Plan of Treatment Not on file documented as of this encounter Visit Diagnoses Diagnosis COPD, moderate Chronic airway obstruction, not elsewhere classified PAH (pulmonary artery hypertension) Other chronic pulmonary heart diseases Syncope, unspecified syncope type documented in this encounter Care Teams Senior Research Scientist Relationship Specialty Start Date End Date Mary Alice Cage APRN PCP - General 10/12/11 11/12/18 documented as of this encounter
--- OUTSIDE RECORDS SUMMARY | 2024-06-15 10:32 | XMS_ITS | Encounter Summary ---
Author Organization [facility] [address] Care Team Providers Care Oil Well Pumper Name Role Phone Mary Alice Cage APRN Primary Care Provider Reason for Visit * Reason Comments Medication Refill Encounter Details Date Type Department Care Team (Late st Contact Info) Description 11/26/2015 Refill [place] [address] Justin Starkey MD [facility] DR [place]STRO[place] [address] Gastroesophageal reflux disease, esophagitis presence not specified [...] specified documented in this encounter Care Teams Oil Well Pumper Relationship Specialty Start Date End Date Mary Alice Cage APRN PCP - General 10/12/11 11/12/18 documented as of this encounter
--- OUTSIDE RECORDS SUMMARY | 2024-06-15 10:32 | XMS_ITS | Encounter Summary ---
[place] [address] Care Team Providers Care Field Applications Specialist Name Role Phone [place]inoMary Alice davis Rajendra ROY Primary Care Provider [phone] Encounter Details Date Type Department Care Team (Latest Contact Info) Description 11/25/2015 12:30 PM EDT - 11/25/2015 11:59 PM EDT Hospital Encounter Non-[place] [address] Syncope, unspecified syncope type Discharge [...] Spacing Device Spcr 2 puffs by [facility].(Non-Drug; Combo Route) route daily. promethazine (PHENERGAN) 25 [...] type documented in this encounter Care Teams Field Applications Specialist Relationship Specialty Start Date End Date Mary Alice Cage APRN PCP - General 10/12/11 11/12/18 documented as of this encounter
--- OUTSIDE RECORDS SUMMARY | 2024-06-15 10:32 | XMS_ITS | Encounter Summary ---
[place] [address] Care Team Providers Care Procedures Rn Name Role Phone JessamineMary Alice davis Rajendra ROY Primary Care Provider [phone] Reason for Visit * Reason Onset Date Comments Results 11/03/2015 Encounter Details Date Type Department Care Team (Late st Contact Info) Description 11/03/2015 Telephone [place] [address] Lyndsey Alejandro, RN Results Social History Tobacco [...] on filedocumented in this encounter Care Teams Procedures Rn Relationship Specialty Start Date End Date Mary Alice Cage APRN PCP - General 10/12/11 11/12/18 documented as of this encounter
--- OUTSIDE RECORDS SUMMARY | 2024-06-15 10:32 | XMS_ITS | Encounter Summary ---
[place] [address] Care Team Providers Care Genetic Coordinator Name Role Phone HillMary Alice davis Rajendra ROY Primary Care Provider [phone] Encounter Details Date Type Department Care Team (Late st Contact Info) Description 11/24/2015 [place] [phone] Chandni Hager MD [facility] [address] Social History Tobacco Use Types Packs/Day Years [...] on 11/21 by the order of her commercial real estate broker. She called that her Zio came off after shower yesterday. She taped the bottom part of it. Wondering what se should do. She did call somebody yesterday and was expecting a call today (but it didn't happen). I will forward the note and talk to Zio department tomorrow. Her mom's apartment number is [phone] (she is leaving some time tomorrow to got there). Will forward note to Dr. Holloway as well. documented in this encounter Plan of Treatment Not on file documented as of this encounter Visit Diagnoses Not on filedocumented in this encounter Care Teams Genetic Coordinator Relationship Specialty Start Date End Date Mary Alice Cage APRN PCP - General 10/12/11 11/12/18 documented as of this encounter
--- OUTSIDE RECORDS SUMMARY | 2024-06-15 10:32 | XMS_ITS | Encounter Summary ---
Author Organization [facility] [place] [address] Care Team Providers Care Nature Photographer Name Role Phone Mille LacsMary Alice davis MANUELA Primary Care Provider [phone] Encounter Details Date Type Department Care Team (Late st Contact Info) Description 03/27/2016 Telephone [place] [address] Myrna Contreras MD [facility] [place] [address] Social History Tobacco Use Types Packs/Day Years [...] on filedocumented in this encounter Care Teams Nature Photographer Relationship Specialty Start Date End Date Mary Alice Cage APRN PCP - General 10/12/11 11/12/18 documented as of this encounter
--- OUTSIDE RECORDS SUMMARY | 2024-06-15 10:33 | XMS_ITS | Encounter Summary ---
Author [place] [address] Care Team Providers Care Shop Lead Name Role Phone Mary Alice Cage MANUELA Primary Care Provider [phone] Encounter Details Date Type Department Care Team (Late st Contact Info) Description 08/31/2014 7:30 AM EST - 08/31/2014 10:28 AM EST Surgery [place] [address] Rios Gonzalez MD [facility] [place] [address] TRANSPEDICULAR LUMBAR DECOMPRESSION SPINAL CORD,EQUINA & NERVE [...] to call your physician or the hospital tying machine operator lumber if you have any questions, and they [...] them. 3. You should also take an ktxy-gfx-xntiuxa stool softener, such as Colace or Senna, [...] please contact the [facility] Center Prescription Lineat [phone]. PRESCRIPTION RENEWAL REQUESTS CAN TAKE UP TO 3 DAYS TO FILL. YOU WILL BE REQUIRED TO TOP LIFT AND AUTOMATIC WINDOW REPAIRER YOUR NARCOTIC REFILL PRESCRIPTION IN PERSON AT [facility] OR IT CAN BE MAILED TO YOUR [...] fallen off already. PLEASE CALL US AT [phone] TO SPEAK WITH A [facility] NURSE [...] Important Phone Numbers: Clinical issues, nurse questions: [phone] Medication renewals: [phone]: Kalpana : [phone] Follow Up Appointments: 1. You will have follow-up appointments at [facility] as indicated in the ???Future Appointments and [...] 24-Hour Pre-Operative H&P Update Poppy Mclaughlin 1960 [id number] Patient seen in pre-op holding area today. [...] Gonzalez MD - 08/31/2014 10:[address] [facility] Operative Note Patient Name: Poppy Mclaughlin : [id number] MR#: [id number] Case Date: 08/31/2014 Surgeon: Surgeon(s) and Role: [...] The L4 pedicle was palpated with the [place], and we identified the L4-L5 foramen. 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
--- OUTSIDE RECORDS SUMMARY | 2024-06-15 10:33 | XMS_ITS | Encounter Summary ---
Author Organization [facility] [place] [address] Care Team Providers Care Manager Studio Name Role Phone DeuelMary Alice davis Rajendra ROY Primary Care Provider [phone] Reason for Visit * Reason Comments Follow-up Encounter Details Date Type Department Care Team (Late st Contact Info) Description 08/29/2015 1:00 PM EST Office [place] [address] Osmany Holloway MD [facility] [place] [address] Syncope, unspecified syncope type; PAH (pulmonary artery [...] overnight oximetry on 2L oxygen faxed to [facility]. * Osmany Holloway MD - 08/29/2015 1:10 [...] CLASSIC OXYGEN CONCENTRATOR MISC) by [facility].(Non-Drug; Combo [...] ??The low-normal FEV1/FVC and disproportionate reduction in [id number] could represent a co-existent obstructive defect. ??The [...] documented in this encounter Care Teams Manager Studio Relationship Specialty Start Date End Date Mary Alice Cage APRN PCP - General 10/12/11 11/12/18 documented as of this encounter
--- OUTSIDE RECORDS SUMMARY | 2024-06-15 10:33 | XMS_ITS | Encounter Summary ---
Author Organization [facility] [address] Care Team Providers Care Day Care Director Name Role Phone Mary Alice Cage APRN Primary Care Provider [phone] Reason for Visit * Reason Comments Medication Refill Encounter Details Date Type Department Care Team (Late st Contact Info) Description 08/17/2015 [place] [address] Justin Starkey MD [facility] [place] [address] Social History Tobacco Use Types Packs/Day Years [...] on filedocumented in this encounter Care Teams Day Care Director Relationship Specialty Start Date End Date Mary Alice Cage APRN PCP - General 10/12/11 11/12/18 documented as of this encounter
--- OUTSIDE RECORDS SUMMARY | 2024-06-15 10:33 | XMS_ITS | Encounter Summary ---
Author Organization [facility] [place] [address] Care Team Providers Care Justowriter Operator Name Role Phone PiattMary Alice davis Rajendra RYO Primary Care Provider [phone] Encounter Details Date Type Department Care Team (Late st Contact Info) Description 11/30/2014 9:22 AM EDT - 11/30/2014 11:59 PM EDT Hospital Encounter [place] [address] Dyspnea Social History Tobacco Use Types Packs/Day [...] Spcr 2 puffs by [facility]Non-Drug; Combo Route) route daily. promethazine (PHENERGAN) 25 [...] abnormality documented in this encounter Care Teams Justowriter Operator Relationship Specialty Start Date End Date Mary Alice Cage APRN PCP - General 10/12/11 11/12/18 documented as of this encounter
--- OUTSIDE RECORDS SUMMARY | 2024-06-15 10:33 | XMS_ITS | Encounter Summary ---
[place] [address] Care Team Providers Care Network Cabler Name Role Phone MccormickMary Alice davis Rajendra ROY Primary Care Provider [phone] Encounter Details Date Type Department Care Team (Late st Contact Info) Description 02/21/2015 9:40 AM EDT - 02/21/2015 10:25 AM EDT Hospital [place] [address] CLINIC, DR MATEUSZ Walker Social History Tobacco [...] Inhalational Spacing Device Spcr 2 puffs by [facility].(Non-Drug; Combo Route) route daily. promethazine (PHENERGAN) 25 [...] abnormality documented in this encounter Care Teams Network Cabler Relationship Specialty Start Date End Date Mary Alice Cage APRN PCP - General 10/12/11 11/12/18 documented as of this encounter
--- OUTSIDE RECORDS SUMMARY | 2024-06-15 10:33 | XMS_ITS | Encounter Summary ---
[place] [address] Care Team Providers Care Biodiesel Plant Operations Engineer Name Role Phone Mary Alice Cage MANUELA Primary Care Provider [phone] Encounter Details Date Type Department Care Team (Latest Contact Info) Description 08/31/2014 5:47 AM EST - 08/31/2014 1:25 PM EST Hospital Encounter [place] [address] Rios Gonzalez MD [facility] [address] Right lumbar radiculopathy (Primary Dx) Discharge Disposition: [...] to call your physician or the hospital receptionist/telephone operator if you have any questions, and [...] them. 3. You should also take an nfsk-tuo-gofkycz stool softener, such as Colace or Senna, [...] please contact the Spine Center Prescription Lineat [phone]. PRESCRIPTION RENEWAL REQUESTS CAN TAKE UP TO 3 DAYS TO FILL. YOU WILL BE REQUIRED TO STUDENT FINANCE ADVISOR YOUR NARCOTIC REFILL PRESCRIPTION IN PERSON AT [facility] OR IT CAN BE MAILED TO YOUR [...] fallen off already. PLEASE CALL US AT [phone] TO SPEAK WITH A SPINE CENTER NURSE [...] Important Phone Numbers: Clinical issues, nurse questions: [phone] Medication renewals: [phone]: Kalpana : [phone] Follow Up Appointments: 1. You will have follow-up appointments at [facility] as indicated in the ???Future Appointments and [...] Inhalational Spacing Device Spcr 2 puffs by [facility].(Non-Drug; Combo Route) route daily. promethazine (PHENERGAN) 25 [...] 24-Hour Pre-Operative H&P Update Poppy Mclaughlin 1960 [id number] Patient seen in pre-op holding area today. [...] Gonzalez MD - 08/31/2014 10:00 AM EST [facility] Operative Note Patient Name: Poppy Mclaughlin : [id number] MR#: [id number] Case Date: 08/31/2014 Surgeon: Surgeon(s) and Role: [...] The L4 pedicle was palpated with the Mehdi, and we identified the L4-L5 foramen. The [...] Operative Note Patient Name: Poppy Mclaughlin : [id number] MR#: [id number] Case Date: 08/31/2014 Surgeon: Surgeon(s) and Role: * Rios Gonzalez MD - Primary * Quinton Puri MD Preoperative diagnosis: L4-5 far lateral hnp Postoperative diagnosis: L4-5 far lateral hnp Procedure(s): Right L4-5 far lateral diskectomy via Silvano (transpedicular) approach (60100) Anesthesia: General Findings: There was a far [...] Routine documented in this encounter Care Teams Biodiesel Plant Operations Engineer Relationship Specialty Start Date End Date Mary Alice Cage APRN PCP - General 10/12/11 11/12/18 documented as of this encounter
--- OUTSIDE RECORDS SUMMARY | 2024-06-15 10:33 | XMS_ITS | Encounter Summary ---
[place] [address] Care Team Providers Care Grocery Cashier Name Role Phone Mary Alice Cage MANUELA Primary Care Provider [phone] Encounter Details Date Type Department Care Team (Late st Contact Info) Description 08/25/2015 Telephone [place] [phone] Virgie Olvera Social History Tobacco Use Types [...] on filedocumented in this encounter Care Teams Grocery Cashier Relationship Specialty Start Date End Date Mary Alice Cage APRN PCP - General 10/12/11 11/12/18 documented as of this encounter
--- OUTSIDE RECORDS SUMMARY | 2024-06-15 10:33 | XMS_ITS | Encounter Summary ---
[place] [address] Care Team Providers Care Flower Machine Operator Name Role Phone Mary Alice Cage MANUELA Primary Care Provider [phone] Reason for Visit * Reason Onset Date Comments Advice Only 12/21/2014 Encounter Details Date Type Department Care Team (Late st Contact Info) Description 12/21/2014 Telephone [place] [phone] Ej Gilbert, secondary special education teacher Only Social History Tobacco Use Types Packs/Day [...] Dr. Starkey to order. Preferred pharmacy is [id number] in [place]. Patient will call with update after cipro course. Reviewed importance of following up with weight loss with PCP. Patient verbalized agreement. Transferred patient to Dr. Starkey's tester rocket engine to schedule f/u appointment for this winter. [...] once a month. 2. Follow up with health and nutrition specialist as scheduled for her worsening shortness of breath. Seeing health and nutrition specialist. Breathing makes exercise difficult. 3. For [...] abnormality documented in this encounter Care Teams Flower Machine Operator Relationship Specialty Start Date End Date Mary Alice Cage APRN PCP - General 10/12/11 11/12/18 documented as of this encounter
--- OUTSIDE RECORDS SUMMARY | 2024-06-15 10:33 | XMS_ITS | Encounter Summary ---
[place] [address] Care Team Providers Care Sulfide Head Operator Name Role Phone Mary Alice Cage MANUELA Primary Care Provider [phone] Reason for Visit * Reason Onset Date Comments Other 03/24/2015 letter from kamron ROA Encounter Details Date Type Department Care Team (Late st Contact Info) Description 03/24/2015 Telephone [place] [address] Chen Valencia, RN Other (letter [...] hearing. Call placed to the office of Culinary Directorjacob Clnacy; left message acknowledging the receipt of the letter; advised in the message that Dr Corbett has not seen pt since September of 2014 in FU to her lumbar Discectomy; Explained that Dr corbett does not perform social security disability determinations or impairment ratings; That this is typically performed by a pt's PCP. In message informed employment attorney that if an opinion of a specialist was being sought; they could request an eval by an occupational medicine provider who perform such evals as a specialty. Informed employment attorney that the questionnaires wouldbe recycled. [facility] clinic and hospital documentation is available through [facility]- Medical Records, Release of Information by request. Call placed to pt; left message requesting return call. Upon return call will advise pt that the service requested by her employment attorney is not one that the spine surgeon performs; that we have directed her employment attorney to direct his inquiry to her PCP. 11:38 Pt returned call; informed pt of above; pt indicated that the request had already been sent to her PCP for completion. documented in this encounter Plan of Treatment Not on file documented as of this encounter Visit Diagnoses Not on filedocumented in this encounter Care Teams Sulfide Head Operator Relationship Specialty Start Date End Date Mary Alice Cage APRN PCP - General 10/12/11 11/12/18 documented as of this encounter
--- OUTSIDE RECORDS SUMMARY | 2024-06-15 10:33 | XMS_ITS | Encounter Summary ---
[place] [address] Care Team Providers Care Pier Hand Name Role Phone Mary Alice Cage MANUELA Primary Care Provider [phone] Reason for Visit * Reason Comments Advice Only Encounter Details Date Type Department Care Team (Late st Contact Info) Description 04/15/2015 Telephone [place] [phone] Nina Hollingsworth RN DEPT OF GASTROENTEROLOGY Advice [...] enteric coated peppermint oil capsules. Purchase at [facility] store. Use 1 capsule 3 times a [...] on filedocumented in this encounter Care Teams Pier Hand Relationship Specialty Start Date End Date Mary Alice Cage APRN PCP - General 10/12/11 11/12/18 documented as of this encounter
--- OUTSIDE RECORDS SUMMARY | 2024-06-15 10:33 | XMS_ITS | Encounter Summary ---
Author Organization [facility] [place] [address] Care Team Providers Care Recovery Collector Name Role Phone GreenMary Alice davis Rajendra ROY Primary Care Provider [phone] Encounter Details Date Type Department Care Team (Latest Contact Info) Description 08/17/2014 9:56 AM [facility] - 08/17/2014 11:59 PM [facility] Hospital [place] [address] Rios Acuna MD [facility] [place] [address] Radiculopathy of lumbar region Discharge Disposition: Home [...] region TYPE AND SCREEN, SDP (FUTURE SURGERY, [facility] SAME DAY PROGRAM ONLY) Routine 08/17/2014 10:17 [...] 10:17 AM EST) Ab Screen Interp Negative [facility] Expires at [id number] on: [id number] [facility] Blood specimen (specimen) 08/17/2014 10:17 [...] BANK LAB ORDER DAMARIS Performing Organization Address City/[facility]/ZIP Co de Phone Number CERNER MILLENNIUM * [...] MD HEMATOLOGY ORDERABLE S Performing Organization Address [facility]/ZIP Co de Phone Number CERNER AMANDAENNIUM * [...] 12.5 - 15.5 sec CERNER MILLENNIUM Comment: [facility] Transfusion Committee Guidelines: INR less [...] intervals supplied above were not validated at [facility]. Results from pediatric patients should be interpreted [...] the following links into your internet browser. [email or web address] Blood specimen (specimen) 08/17/2014 10:17 AM EST 08/17/2014 10:25 AM EST Narrative Resulting Agency Comment Spec In Lab Rios Acuna MD CHEMISTRY ORDERABLES [facility] documented in this encounter Visit Diagnoses Diagnosis Radiculopathy of lumbar region Thoracic or lumbosacral neuritis or radiculitis, unspecified documented in this encounter Care Teams Recovery Collector Relationship Specialty Start Date End Date Mary Alice Cage APRN PCP - General 10/12/11 11/12/18 documented as of this encounter
--- OUTSIDE RECORDS SUMMARY | 2024-06-15 10:33 | XMS_ITS | Encounter Summary ---
Author Organization [facility] [place] [address] Care Team Providers Care End Lathe Operator Name Role Phone AndersonMary Alice davis Rajendra ROY Primary Care Provider [phone] Reason for Referral * Consultation (Routine) - Closed Specialty Diagnoses / Procedures Referred By Chava alejo Referred To Contact General Surgery Diagnoses H/O gastroesophageal reflux (GERD) Justin Starkey MD [facility] [address] [place] [address] Malgorzata Miguel MD [facility] [place] [address] Referral ID Status Reason Start Date Expiration Date V isits Requested Visits Authorized [id number] Closed Specialty Service Requested 08/11/2015 08/10/2016 1 1 * Surgical (Routine) - Closed Specialty Diagnoses / Procedures Referred By Chava laejo Referred To Contact Gastroenterology Diagnoses H/O gastroesophageal reflux (GERD) GERD Procedures MANOMETRY ESOPHAGEAL PALMER CAPSULE PH TEST HREM; Palmer OFF meds, EGD. Pt will stop Dexilant 2 weeks in advance.?? Patient will call to schedule for september or october 2015 Justin Starkey MD [facility] [address] [place] [address] [facility] [address] [place] [address] Referral ID Status Reason Start Date Expiration Date V isits Requested Visits Authorized [id number] Closed Test Only 08/11/2015 08/10/2016 1 1 Reason for Visit * Reason Comments Follow-up Encounter Details Date Type Department Care Team (Latest Contact Info) Description 08/11/2015 10:00 AM EST Office [place] [address] Justin Starkey MD [facility] [address] [place] [address] H/O gastroesophageal reflux (GERD); IBS (irritable bowel [...] 08/17/2015 5:04 PM EST GI FOLLOW-UP Poppy Mclaughlin Female, 54 yrs, 1960 , SR None PCP: Mary Alice Cage WOOD PREPARATION SUPERVISOR: NONE REASON FOR VISIT This is a [...] medicaland psychological issues and also with her clinical application specialist for her COPD and worsening shortness [...] HISTORY 1. Emergency hernia repair May 2011, [place]. 2. Cholecystectomy 11/24/12. 3. Cervical spine fusion [...] and psychological issues. 2. Follow up with clinical application specialist for her COPD. 3. PRO. Lifestyle [...] patient. The entire visit was spent in [id number]-gcnq counseling and coordination of care. Justin Starkey, PhD, MD hvac r tech, [employer] [facility] [employer] Chief, Section of Gastroenterology and Hepatology [facility] THADDEUS [place] [address] V: [phone] F: [phone] MICKY/kelsey CC/EC: PCP - fax copy 08/16/15 [facility] GI Machinist 2Nd Shift - staff msg copy 08/16/15 documented in [...] uncontrolled documented in this encounter Care Teams End Lathe Operator Relationship Specialty Start Date End Date Mary Alice Cage APRN PCP - General 10/12/11 11/12/18 documented as of this encounter
--- OUTSIDE RECORDS SUMMARY | 2024-06-15 10:33 | XMS_ITS | Encounter Summary ---
[place] [address] Care Team Providers Care Blueberry Grower Name Role Phone LeelanauMary Alice davis Rajendra ROY Primary Care Provider [phone] Encounter Details Date Type Department Care Team (Late st Contact Info) Description 09/08/2014 Telephone [place] [address] Lacey Steiner, RN Social History Tobacco Use [...] on filedocumented in this encounter Care Teams Blueberry Grower Relationship Specialty Start Date End Date Mary Alice Cage APRN PCP - General 10/12/11 11/12/18 documented as of this encounter
--- OUTSIDE RECORDS SUMMARY | 2024-06-15 10:33 | XMS_ITS | Encounter Summary ---
[place] [address] Care Team Providers Care Senior Validation Engineer Name Role Phone Mary Alice Cage MANUELA Primary Care Provider [phone] Reason for Visit * Reason Onset Date Comments Pre Procedure Call 08/17/2014 pre op med ho ld, request for pain medication. Encounter Details Date Type Department Care Team (Late st Contact Info) Description 08/17/2014 [place] [address] Milvia Fernandez RN Pre Procedure [...] filedocumented in this encounter Care Teams Senior Validation Engineer Relationship Specialty Start Date End Date Mary Alice Cage APRN PCP - General 10/12/11 11/12/18 documented as of this encounter
--- OUTSIDE RECORDS SUMMARY | 2024-06-15 10:33 | XMS_ITS | Encounter Summary ---
Author Organization [facility] [place] [address] Care Team Providers Care Associate Property Manager Name Role Phone VilasMary Alice davis Rajendra ROY Primary Care Provider [phone] Reason for Visit * Reason Comments Follow-up Encounter Details Date Type Department Care Team (Late st Contact Info) Description 02/21/2015 10:45 AM EDT [place] [address] Machelle Bueno MD [facility] [place] [address] COPD, moderate; Thrush Discharge Disposition: Home Social [...] Inhalational Spacing Device Spcr 2 puffs by [facility]Non-Drug; Combo Route) route daily. ??? [...] classified documented in this encounter Care Teams Associate Property Manager Relationship Specialty Start Date End Date Mary Alice Cage, ARABIC LINGUIST PCP - General 10/12/11 11/12/18 documented as of this encounter
--- OUTSIDE RECORDS SUMMARY | 2024-06-15 10:33 | XMS_ITS | Encounter Summary ---
Author Organization [facility] [address] Care Team Providers Care Motion And Time Study Teacher Name Role Phone [place] PineMary Alice davis Rajendra ROY Primary Care Provider [phone] Encounter Details Date Type Department Care Team (Late st Contact Info) Description 02/21/2015 10:26 AM EDT - 02/21/2015 11:59 PM EDT Hospital En[place] [address] Dyspnea Social History Tobacco Use Types Packs/Day [...] Inhalational Spacing Device Spcr 2 puffs by [facility].(Non-Drug; Combo Route) route daily. promethazine (PHENERGAN) 25 [...] abnormality documented in this encounter Care Teams Motion And Time Study Teacher Relationship Specialty Start Date End Date Mary Alice Cage APRN PCP - General 10/12/11 11/12/18 documented as of this encounter
--- OUTSIDE RECORDS SUMMARY | 2024-06-15 10:33 | XMS_ITS | Encounter Summary ---
[place] [address] Care Team Providers Care Corrosion Control Fitter Name Role Phone LehighMary Alice davis Rajendra ROY Primary Care Provider [phone] Encounter Details Date Type Department Care Team (Late st Contact Info) Description 07/27/2015 Tele[place] [phone] Virgie Olvera Social History Tobacco Use Types [...] on filedocumented in this encounter Care Teams Corrosion Control Fitter Relationship Specialty Start Date End Date Mary Alice Cage APRN PCP - General 10/12/11 11/12/18 documented as of this encounter
--- OUTSIDE RECORDS SUMMARY | 2024-06-15 10:33 | XMS_ITS | Encounter Summary ---
Author Organization [facility] [place] [address] Care Team Providers Care Flat Knitter Name Role Phone Mary Alice Cage APRN Primary Care Provider [phone] Reason for Visit * Reason Onset Date Comments Medication Refill 03/10/2015 Encounter Details Date Type Department Care Team (Late st Contact Info) Description 03/10/2015 [place] [address] Osmany Holloway MD [facility] [place] [address] Social History Tobacco Use Types Packs/Day Years [...] on filedocumented in this encounter Care Teams Flat Knitter Relationship Specialty Start Date End Date Mary Alice Cage APRN PCP - General 3//12 4/3/19 documented as of this encounter
--- OUTSIDE RECORDS SUMMARY | 2024-06-15 10:33 | XMS_ITS | Encounter Summary ---
Author Organization [facility] [place] [address] Care Team Providers Care Community Health Nurse Staff Name Role Phone Mary Alice Cage Rajendra ROY Primary Care Provider [phone] Reason for Visit * Reason Onset Date Comments Medication Refill 02/25/2015 Encounter Details Date Type Department Care Team (Late st Contact Info) Description 02/25/2015 Tele[place] [address] Osmany Holloway MD [facility] [place] [address] Medication Refill Social History Tobacco Use Types [...] classified documented in this encounter Care Teams Community Health Nurse Staff Relationship Specialty Start Date End Date Mary Alice Cage APRN PCP - General 10/12/11 11/12/18 documented as of this encounter
--- OUTSIDE RECORDS SUMMARY | 2024-06-15 10:33 | XMS_ITS | Encounter Summary ---
[place] [address] Care Team Providers Care Pay Station Collector Name Role Phone LongMary Alice davis MANUELA Primary Care Provider [phone] Reason for Visit * Reason Comments Dysphagia Encounter Details Date Type Department Care Team (Late st Contact Info) Description 04/15/2015 Telephone [place] [address] Nina Hollingsworth, RN DEPT OF GASTROENTEROLOGY Dysphagia [...] on filedocumented in this encounter Care Teams Pay Station Collector Relationship Specialty Start Date End Date Mary Alice Cage APRN PCP - General 10/12/11 11/12/18 documented as of this encounter
--- OUTSIDE RECORDS SUMMARY | 2024-06-15 10:33 | XMS_ITS | Encounter Summary ---
Author Organization [facility] Address [facility] [place] [address] Care Team Providers Care Modeling And Simulation Analyst Name Role Phone Mary Alice Cage APRN Primary Care Provider [phone] Encounter Details Date Type Department Care Team (Latest Contact Info) Description 09/16/2014 10:05 AM EST - 09/16/2014 11:59 PM [facility] Hospital Encounter XRay at [address] [place] [address] Radiculopathy of lumbar region Social History Tobacco [...] unspecified documented in this encounter Care Teams Modeling And Simulation Analyst Relationship Specialty Start Date End Date Mary Alice Cage APRN PCP - General 10/12/11 11/12/18 documented as of this encounter
--- OUTSIDE RECORDS SUMMARY | 2024-06-15 10:33 | XMS_ITS | Encounter Summary ---
[place] [address] Care Team Providers Care Microsoft Exchange Architect Name Role Phone NilesCariepham Drew APRN Primary Care Provider [phone] Encounter Details Date Type Department Care Team (Late st Contact Info) Description 11/30/2014 8:30 AM EDT - 11/30/2014 9:21 AM EDT Hospital Encounter Non-Invasive [place] [address] Edema; Dyspnea Social History Tobacco [...] Inhalational Spacing Device Spcr 2 puffs by [facility].(Non-Drug; Combo Route) route daily. promethazine (PHENERGAN) 25 [...] SOTELO Maria Eugenia ?(Age): 1960(54) Med Rec#: ?[id number] ? Sex: ?F ? Site Loc: ?[facility] ? Ht / Wt: ??154(cm)/91(kg) Pt. Loc: ? Echo Lab ? BSA: ?1.97 Study Date: ?11/30/2014 ? Pt. Type: Outpatient Tape: ? Referring: Osmany Holloway Cardiology Nurse: Andriy Garland Diagnosis:CPT Code(s): ??Echo Full (68437), ??Spectral Doppler (31340), Color Doppler (40500), Indication(s): ??Edema Rhythm: Sinus HR ?BP ?150/88 [...] ? Mid-Inferior ?Normal ? Mid-Inferoseptal ?Normal ? [place]-Septal ? Normal ? [place]-Anterior ? Normal ? [place]-Lateral ?Normal ? [place]-Inferior ? Normal ? [place]-Tip ?Normal ? Chambers ?Value ?Units (Range) ? [...] 11/30/2014 09:40:46 Images reviewed and interpretation verified [facility] Cardiac Ultrasound Laboratory Procedure Note Vinicio Skelton MD - 11/30/2014 Procedure: Transthoracic Echocardiogram Patient: ODETTE Del Cid DOB(Age): 1960(54) Med Rec#: [id number] Sex: F Site Loc: [facility] Ht / Wt: 154(cm)/91(kg) Pt. Loc: Echo Lab BSA: 1.97 Study Date: 11/30/2014 Pt. Type: Outpatient Tape: Referring: Osmany Holloway Cardiology Nurse: Andriy Garland Diagnosis:CPT Code(s): Echo Full (78601), Spectral Doppler (64752), Color Doppler (62562), Indication(s): Edema Rhythm: Sinus HR BP 150/88 [...] Normal Mid-Posterolateral Normal Mid-Inferior Normal Mid-Inferoseptal Normal [place]-Septal Normal [place]-Anterior Normal [place]-Lateral Normal [place]-Inferior Normal [place]-Tip Normal Chambers Value Units (Range) LV EF [...] 11/30/2014 09:40:46 Images reviewed and interpretation verified [facility] Cardiac Ultrasound Laboratory Osmany Overton MD ECHO ORDERABLES documented in this encounter Visit Diagnoses Diagnosis Edema Dyspnea Other dyspnea and respiratory abnormality documented in this encounter Care Teams Microsoft Exchange Architect Relationship Specialty Start Date End Date Mary Alice Cage, MANUELA PCP - General 10/12/11 11/12/18 documented as of this encounter
--- OUTSIDE RECORDS SUMMARY | 2024-06-15 10:33 | XMS_ITS | Encounter Summary ---
[place] [address] Care Team Providers Care Electrophysiology Scientist Name Role Phone LucasMary Alice davis Rajendra ROY Primary Care Provider [phone] Encounter Details Date Type Department Care Team (Late st Contact Info) Description 01/06/2015 Telephone [place] [address] Gabriella Garcia Social History Tobacco Use Types [...] 30 days old. New referral faxed to [facility]. [phone]. documented in this encounter Plan of Treatment Not on file documented as of this encounter Visit Diagnoses Not on filedocumented in this encounter Care Teams Electrophysiology Scientist Relationship Specialty Start Date End Date Mary Alice Cage APRN PCP - General 10/12/11 11/12/18 documented as of this encounter
--- OUTSIDE RECORDS SUMMARY | 2024-06-15 10:33 | XMS_ITS | Encounter Summary ---
[place] [address] Care Team Providers Care Academic Manager Name Role Phone ManateeMary Alice davis MANUELA Primary Care Provider [phone] Reason for Visit * Reason Onset Date Comments Advice Only 08/16/2015 Encounter Details Date Type Department Care Team (Late st Contact Info) Description 08/16/2015 Refill [place] [address] Ej Gilbert RN Thrush Social History Tobacco [...] a yeast infection. Patient says that Dr. Starkey told her he was going to callin a prescription for diflucan for her, but didn't. Patient states that she is not currently havingsymptoms of a yeast infection but I always get it in at least one place. Note that patient was prescribed diflucan 100 mg PO daily x 5 days on 02/21/[address] Holloway with 3refills. Called [facility] pharmacy in [place]. Pharmacist states she has all three refills remaining. Left message for patient that she has 3 refills remaining and doesn't need a new script at this time. documented in this encounter Plan of Treatment Not on file documented as of this encounter Visit Diagnoses Diagnosis Thrush Candidiasis of mouth documented in this encounter Care Teams Academic Manager Relationship Specialty Start Date End Date Mary Alice Cage APRN PCP - General 10/12/11 11/12/18 documented as of this encounter
--- OUTSIDE RECORDS SUMMARY | 2024-06-15 10:33 | XMS_ITS | Encounter Summary ---
[place] [address] Care Team Providers Care Inspector Chief Name Role Phone Mary Alice Cage Rajendra ROY Primary Care Provider [phone] Reason for Visit * Reason Onset Date Comments Prior Authorization 04/14/2015 Dexilant Encounter Details Date Type Department Care Team (Late st Contact Info) Description 04/14/2015 Telephone [place] [phone] Gardenia Bueno CMA GASTROENTEROLOGY DEPT Prior Authorization [...] QD Quantity/supply/refills: refill 11 Patient???s Preferred Pharmacy: [facility] [phone] Reason PA is needed: non formulary New Request or PA Renewal?: PA renewel Previously Approved? Yes ( see Debbie Note) PA Case No., Date Issued, Dated , Case No.: PA REQUEST SUBMITTED to: [place] medicaid Phone and -[phone] Patient???s RX Insurance Plan ID No.: [id number] Rx Insurer???s Preferred drugs: PA Case No. [...] 60 mg ORIGINAL PA REQUEST SUBMITTED to: [employer] [facility] [employer] Rx Insurer: Phone and Fax: Patient???s RX Insurance Plan ID No.: PA Case No. Date Submitted: PA REQUEST APPROVED: PA Case No./Approval No.: [id number] Effective Dates: 04/15/2015-04/15/2016 Special Conditions/Notes: * Telephone Encounter - Renetta Greenfield MA - 04/15/2015 1:25 PM EDT Dexilant prior authorization received, still in process. * Telephone Encounter - Gardenia Bueno CMA - 04/14/2015 4:52 PM EDT PRIOR AUTHORIZATION REQUEST for: dexilant Dose/Instructions: 60 mg QD Quantity/supply/refills: refill 11 Patient???s Preferred Pharmacy: [facility] [phone] Reason PA is needed: non formulary New Request or PA Renewal?: PA renewel Previously Approved? Yes ( see Debbie Note) PA Case No., Date Issued, Dated , Case No.: PA REQUEST SUBMITTED to: [place] medicaid Phone and -[phone] Patient???s RX Insurance Plan ID No.: [id number] Rx Insurer???s Preferred drugs: PA Case No. [...] PA REQUEST APPROVED: PA Case No./Approval No.: [id number] Effective Dates: 04/15/2015-04/15/2016 Special Conditions/Notes: documented in [...] on filedocumented in this encounter Care Teams Inspector Chief Relationship Specialty Start Date End Date Mary Alice Cage APRN PCP - General 10/12/11 11/12/18 documented as of this encounter
--- OUTSIDE RECORDS SUMMARY | 2024-06-15 10:33 | XMS_ITS | Encounter Summary ---
Author Organization [facility] [place] [address] Care Team Providers Care Business Job Titles Name Role Phone Mary Alice Cage MANUELA Primary Care Provider [phone] Reason for Visit * Reason Comments Follow-up Encounter Details Date Type Department Care Team (Latest Contact Info) Description 11/18/2014 3:30 PM EDT Follow-Up [place] [address] Justin Starkey MD [facility] [place] [address] H/O gastroesophageal reflux (GERD); Diarrhea; Chronic abdominal [...] 54 yrs, 1960 PCP: Mary Alice Cage PULP MIXER: NONE REASON FOR VISIT This is a [...] the last year. 2. Follow up with biomedical specialist as scheduled for her worsening shortness [...] patient. The entire visit was spent in [id number] counseling and coordination of care. Justin Starkey, PhD, MD mobile lab technician, [facility] [employer] Section of Gastroenterology and Hepatology [facility] [address] V: [phone] F: [phone] MICKY/kelsey/mian CC/EC: PCP - staff msg copy 11/30/14 documented in this encounter Plan of Treatment Not on file documented as of this encounter Visit Diagnoses Diagnosis H/O gastroesophageal reflux (GERD) Personal history of other diseases of digestive system Diarrhea Chronic abdominal pain Abdominal pain, unspecified site documented in this encounter Care Teams Business Job Titles Relationship Specialty Start Date End Date Mary Alice Cage APRN PCP - General 10/12/11 11/12/18 documented as of this encounter
--- OUTSIDE RECORDS SUMMARY | 2024-06-15 10:33 | XMS_ITS | Encounter Summary ---
Author Organization [facility] Address [facility] [place] [address] Care Team Providers Care Shock Absorption Floor Layer Name Role Phone Mary Alice Cage APRN Primary Care Provider [phone] Encounter Details Date Type Department Care Team (Latest Contact Info) Description 09/16/2014 10:05 AM [facility] Encounter XRay at [address] [place] [address] Herniated nucleus pulposus, C6-7 Right, S/P C5-7 [...] Inhalational Spacing Device Spcr 2 puffs by [facility].(Non-Drug; Combo Route) route daily. promethazine (PHENERGAN) 25 [...] myelopathy documented in this encounter Care Teams Shock Absorption Floor Layer Relationship Specialty Start Date End Date Mary Alice Cage APRN PCP - General 10/12/11 11/12/18 documented as of this encounter
--- OUTSIDE RECORDS SUMMARY | 2024-06-15 10:33 | XMS_ITS | Encounter Summary ---
Author Organization [facility] [place] [address] Care Team Providers Care Parking Lot Attendant Name Role Phone QuayMary Alice davis MANUELA Primary Care Provider [phone] Encounter Details Date Type Department Care Team (Late st Contact Info) Description 11/30/2014 10:15 AM EDT Follow-[place] [address] SCHEDULE 1, PFT Osmany Holloway MD [facility] [place] [address] Dyspnea Discharge Disposition: Home Social History Tobacco [...] Inhalational Spacing Device Spcr 2 puffs by [facility]Non-Drug; Combo Route) route daily. ??? fluticasone (FLONASE) [...] abnormality documented in this encounter Care Teams Parking Lot Attendant Relationship Specialty Start Date End Date Mary Alice Cage APRN PCP - General 10/12/11 11/12/18 documented as of this encounter
--- OUTSIDE RECORDS SUMMARY | 2024-06-15 10:33 | XMS_ITS | Encounter Summary ---
Author Organization [facility] [place] [address] Care Team Providers Care Exhauster Name Role Phone Mary Alice Cage MANUELA Primary Care Provider Encounter Details Date Type Department Care Team (Late st Contact Info) Description 08/31/2014 7:35 AM EST Anesthesia Event [place] [address] Omar Donohue MD [facility] DR [place] [address] Anesthesia Record Procedure Summary Procedure Name Responsible [...] 0658; median vein left (underside of arm); huwm-xpt-dpwldh catheter system; 20 gauge; Kaia Rivera RN; [...] Removal Time: 0908/31/14 0744 by Puneet Velarde, IDENTIFICATION AND RECORDS COMMANDER 08/31/14 0953 by Puneet Velarde CRNA documented in this encounter Social History [...] 3-[address] alex ??? Headache(784.0) ? Skin disorder ?? acne Past Surgical History Procedure Laterality Date ??? Gastroenterology procedure [address] jimenez ??? Lap, cholecystectomy/graph 11/04/2012 LAPAROSCOPIC CHOLECYSTECTOMY WITH CHOLANGIOGRAM performed by Abel Carlton MD at [facility] ??? Arthrodesis, ant interbody,decompression; cervical below c2 09/08/2013 ARTHRODESIS, ANT INTERBODY,DECOMPRESSION; CERVICAL BELOW C2 performed by Rios Acuna MD at [facility] ??? Arthrd ant interdy cervcl belw c2 ea addl ntrspc 09/08/2013 @ARTHRODESIS ANT INTERBDY CERVCL BELOW C2 EA ADDL INTRSPACE performed by Rios Acuna MD at [facility] ??? Anterior instrumentation 2-3 vertebral segments 09/08/2013 @ANT. SPINAL INSTRUMENTATION, 2-3 VERTEBRA, SEGMENTED performed by Rios Acuna MD at [facility] [place] ??? Allograft for spine surgery only structural 09/08/2013 ALLOGRAFT FOR SPINE SURGERY ONLY; STRUCTUAL performed by Rios Acuna MD at [facility] History Substance Use Topics [...] mouth. Remaining teeth poor condition, 5 remaining [facility] Assessment: Patient is wearing No contact(s). IV [...] problems with Propofol during lap [facility] at [facility] in 2012. HTN, recent change in meds [...] consented to blood products. Plan discussed with IDENTIFICATION AND RECORDS COMMANDER. [facility]. Assessment: documented in this encounter Plan of [...] mg documented in this encounter Care Teams Exhauster Relationship Specialty Start Date End Date Mary Alice Cage APRN PCP - General 10/12/11 11/12/18 documented as of this encounter
--- OUTSIDE RECORDS SUMMARY | 2024-06-15 10:33 | XMS_ITS | Encounter Summary ---
[place] [address] Care Team Providers Care Seo Coordinator Name Role Phone MorrowMary Alice davis Rajendra ROY Primary Care Provider [phone] Reason for Visit * Reason Onset Date Comments Prior Authorization 04/08/2015 Dexilant Encounter Details Date Type Department Care Team (Late st Contact Info) Description 04/08/2015 Telephone [place] [address] Renetta Greenfield MA GASTROENTEROLOGY DEPT Prior Authorization [...] on filedocumented in this encounter Care Teams Seo Coordinator Relationship Specialty Start Date End Date Mary Alice Cage APRN PCP - General 10/12/11 11/12/18 documented as of this encounter
--- OUTSIDE RECORDS SUMMARY | 2024-06-15 10:33 | XMS_ITS | Encounter Summary ---
[place] [address] Care Team Providers Care Impregnator And Drier Helper Name Role Phone [place] Mary Alicepham Drew APRN Primary Care Provider [phone] Reason for Referral * Physical Therapy (Routine) - Closed Specialty Diagnoses / Procedures Referred By Chava alejo Referred To Contact Physical Therapy Diagnoses Right lumbar radiculopathy Rios Acuna MD [facility] [place] [address] Referral ID Status Reason Start Date Expiration Date V isits Requested Visits Authorized [id number] Closed Evaluate and Treat 01/06/2015 07/05/2015 12 12 Encounter Details Date Type Department Care Team (Late st Contact Info) Description 01/06/2015 Orders Only [place] [address] Chen Valencia, RN Right lumbar radiculopathy Social [...] unspecified documented in this encounter Care Teams Impregnator And Drier Helper Relationship Specialty Start Date End Date Mary Alice Cage APRN PCP - General 10/12/11 11/12/18 documented as of this encounter
--- OUTSIDE RECORDS SUMMARY | 2024-06-15 10:33 | XMS_ITS | Encounter Summary ---
Author Organization [facility] [place] [address] Care Team Providers Care Inner Tube Tuber Machine Operator Name Role Phone GordonMary Alice davis Rajendra ROY Primary Care Provider [phone] Encounter Details Date Type Department Care Team (Latest Contact Info) Description 08/29/2015 11:06 AM EST - 08/29/2015 11:59 PM [facility] Encounter [place] [address] COPD, moderate Discharge Disposition: Home Social History [...] Spcr 2 puffs by [facility].(Non-Drug; Combo Route) route daily. promethazine [...] classified documented in this encounter Care Teams Inner Tube Tuber Machine Operator Relationship Specialty Start Date End Date Mary Alice Cage APRN PCP - General 10/12/11 11/12/18 documented as of this encounter
--- OUTSIDE RECORDS SUMMARY | 2024-06-15 10:33 | XMS_ITS | Encounter Summary ---
[place] [address] Care Team Providers Care Marketing Strategy Manager Name Role Phone LinnMary Alice davis Rajendra ROY Primary Care Provider [phone] Encounter Details Date Type Department Care Team (Late st Contact Info) Description 08/17/2014 10:20 AM EST Clinical [place] [address] Social History Tobacco Use Types Packs/Day Years [...] filedocumented in this encounter Care Teams Marketing Strategy Manager Relationship Specialty Start Date End Date Mary Alice Cage APRN PCP - General 10/12/11 11/12/18 documented as of this encounter
--- OUTSIDE RECORDS SUMMARY | 2024-06-15 10:33 | XMS_ITS | Encounter Summary ---
Author Organization [place] [id number] Care Team Providers Care Picking Machine Operator Name Role Phone Mary Alice Cage APRN Primary Care Provider [phone] Reason for Referral * Physical Therapy (Routine) - Closed Specialty Diagnoses / Procedures Referred By Chava alejo Referred To Contact Physical Therapy Diagnoses Right lumbar radiculopathy Rios Acuna MD [facility] [place] [address] Referral ID Status Reason Start Date Expiration Date V isits Requested Visits Authorized [id number] Closed Evaluate and Treat 09/16/2014 03/15/2015 1 1 Reason for Visit * Reason Comments Back Pain Encounter Details Date Type Department Care Team (Latest Contact Info) Description 09/16/2014 11:00 AM EST Office [place] [address] Rios Acuna MD [facility] [place] [address] Right lumbar radiculopathy Discharge Disposition: Home Social [...] unspecified documented in this encounter Care Teams Picking Machine Operator Relationship Specialty Start Date End Date Mary Alice Cage APRN PCP - General 10/12/11 11/12/18 documented as of this encounter
--- OUTSIDE RECORDS SUMMARY | 2024-06-15 10:33 | XMS_ITS | Encounter Summary ---
[place] [address] Care Team Providers Care Congressional Assistant Name Role Phone Mary Alice Cage MANUELA Primary Care Provider [phone] Reason for Visit * Reason Onset Date Comments Advice Only 05/24/2015 Encounter Details Date Type Department Care Team (Late st Contact Info) Description 05/24/2015 Telephone [place] [address] Ej Gilbert, reconsignment clerk Only Social History Tobacco Use Types Packs/Day [...] work. She would like to return to [employer] [employer]. Also states that her course of ciprofloxacin for gas and bloating was not helpful either. Routing to Dr. Starkey documented in this encounter Plan of Treatment Not on file documented as of this encounter Visit Diagnoses Diagnosis Chronic abdominal pain Abdominal pain, unspecified site documented in this encounter Care Teams Congressional Assistant Relationship Specialty Start Date End Date Mary Alice Cage APRN PCP - General 10/12/11 11/12/18 documented as of this encounter
--- OUTSIDE RECORDS SUMMARY | 2024-06-15 10:34 | XMS_ITS | Encounter Summary ---
Author Organization [facility] Address [facility] [place] [address] Care Team Providers Care Stonework Supervisor Name Role Phone Mary Alice Cage APRN Primary Care Provider [phone] Encounter Details Date Type Department Care Team (Latest Contact Info) Description 03/15/2014 10:02 AM EDT - 03/15/2014 11:59 PM EDT Hospital Encounter XRay at [address] [place] [address] Herniated nucleus pulposus, C6-7 Right, S/P C5-7 [...] myelopathy documented in this encounter Care Teams Stonework Supervisor Relationship Specialty Start Date End Date Mary Alice Cage APRN PCP - General 10/12/11 11/12/18 documented as of this encounter
--- OUTSIDE RECORDS SUMMARY | 2024-06-15 10:34 | XMS_ITS | Encounter Summary ---
Author Organization [facility] Address [facility] [place] [address] Care Team Providers Care Vocational Training Teacher Name Role Phone Mary Alice Cage APRN Primary Care Provider [phone] Encounter Details Date Type Department Care Team (Latest Contact Info) Description 12/02/2013 9:59 AM EDT - 12/02/2013 11:59 PM EDT Hospital Encounter XRay at [address] [place] [address] Herniated nucleus pulposus, C6-7 Right, S/P C5-7 [...] myelopathy documented in this encounter Care Teams Vocational Training Teacher Relationship Specialty Start Date End Date Mary Alice Cage APRN PCP - General 10/12/11 11/12/18 documented as of this encounter
--- OUTSIDE RECORDS SUMMARY | 2024-06-15 10:34 | XMS_ITS | Encounter Summary ---
[place] [address] Care Team Providers Care Chemical Engineering Technician Name Role Phone [place] Mary Alice Rajendra ROY Primary Care Provider [phone] Reason for Visit * Reason Onset Date Comments Neck And Arm Pain With Numbness 04/05/2014 bilat subsequent to slipping and falling three steps on bleacher Encounter Details Date Type Department Care Team (Late st Contact Info) Description 04/05/2014 Telephone [place] [address] Chen Valencia, RN Neck And [...] on filedocumented in this encounter Care Teams Chemical Engineering Technician Relationship Specialty Start Date End Date Mary Alice Cage APRN PCP - General 10/12/11 11/12/18 documented as of this encounter
--- OUTSIDE RECORDS SUMMARY | 2024-06-15 10:34 | XMS_ITS | Encounter Summary ---
[place] [address] Care Team Providers Care Cuffer Name Role Phone Mary Alice Cage MANUELA Primary Care Provider [phone] Reason for Visit * Reason Comments Neck Pain Mid Back Pain Low Back Pain Encounter Details Date Type Department Care Team (Late st Contact Info) Description 03/15/2014 11:00 AM EDT Office [place] [address] Rios Acuna MD [facility] [place] [address] Herniated nucleus pulposus, C6-7 Right, S/P C5-7 [...] of the clinical situation. (Reference-Jarvik et al, [id number]) Findings: (prevalence in patients without low back [...] myelopathy documented in this encounter Care Teams Cuffer Relationship Specialty Start Date End Date Mary Alice Cage APRN PCP - General 10/12/11 11/12/18 documented as of this encounter
--- OUTSIDE RECORDS SUMMARY | 2024-06-15 10:34 | XMS_ITS | Encounter Summary ---
Author Organization [facility] [place] [address] Care Team Providers Care Block Hacker Name Role Phone Cb [place] Primary Care Provider [phone] Reason for Visit * Reason Onset Date Comments Medication Refill 10/01/2013 Encounter Details Date Type Department Care Team (Late st Contact Info) Description 10/01/2013 Refill [place] [address] Malia Vidal APRN [facility] [place] [address] Social History Tobacco Use Types Packs/Day Years [...] on filedocumented in this encounter Care Teams Block Hacker Relationship Specialty Start Date End Date Cb [place] PA [address] [place] [address] PCP - General Family Medicine 04/08/20 documented as of this encounter
--- OUTSIDE RECORDS SUMMARY | 2024-06-15 10:34 | XMS_ITS | Encounter Summary ---
[place] [address] Care Team Providers Care Vp & General Counsel Name Role Phone Mary Alice Cage MANUELA Primary Care Provider [phone] Reason for Visit * Reason Onset Date Comments Medication Refill 10/01/2013 hydrocodone/ac etaminophen 5/325mg. Encounter Details Date Type Department Care Team (Late st Contact Info) Description 10/01/2013 Refill Spine Center at [place] [id number] Rios Acuna MD [facility] [place] [place] [address] Social History Tobacco Use Types Packs/Day Years [...] on filedocumented in this encounter Care Teams Vp & General Counsel Relationship Specialty Start Date End Date Mary Alice Cage APRN PCP - General 10/12/11 11/12/18 documented as of this encounter
--- OUTSIDE RECORDS SUMMARY | 2024-06-15 10:34 | XMS_ITS | Encounter Summary ---
[place] [address] Care Team Providers Care Supervisor Labor Gang Name Role Phone Mary Alice Cage APRN Primary Care Provider Reason for Visit * Reason Comments Results Encounter Details Date Type Department Care Team (Late st Contact Info) Description 06/16/2014 Telephone [place] [address] Nina Hollingsworth, RN DEPT OF GASTROENTEROLOGY Results [...] on filedocumented in this encounter Care Teams Supervisor Labor Gang Relationship Specialty Start Date End Date Mary Alice Cage APRN PCP - General 10/12/11 11/12/18 documented as of this encounter
--- OUTSIDE RECORDS SUMMARY | 2024-06-15 10:34 | XMS_ITS | Encounter Summary ---
[place] [address] Care Team Providers Care Optical Dispenser Name Role Phone WashingtonMary Alice davis MANUELA Primary Care Provider [phone] Encounter Details Date Type Department Care Team (Late st Contact Info) Description 05/05/2014 Telephone [place] [address] Erika Etienne, RN Social History Tobacco Use [...] on filedocumented in this encounter Care Teams Optical Dispenser Relationship Specialty Start Date End Date Mary Alice Cage APRN PCP - General 10/12/11 11/12/18 documented as of this encounter
--- OUTSIDE RECORDS SUMMARY | 2024-06-15 10:34 | XMS_ITS | Encounter Summary ---
[place] [address] Care Team Providers Care Production Solderer Name Role Phone BarrenMary Alice davis Rajendra ROY Primary Care Provider [phone] Reason for Visit * Reason Onset Date Comments Questions 01/12/2014 Encounter Details Date Type Department Care Team (Late st Contact Info) Description 01/12/2014 Telephone [place] [address] Chen Valencia, RN Questions Social History Tobacco [...] on filedocumented in this encounter Care Teams Production Solderer Relationship Specialty Start Date End Date Mary Alice Cage APRN PCP - General 10/12/11 11/12/18 documented as of this encounter
--- OUTSIDE RECORDS SUMMARY | 2024-06-15 10:34 | XMS_ITS | Encounter Summary ---
[place] [address] Care Team Providers Care American Sign Language Teacher Name Role Phone NilesMary Alice Rajendra ROY Primary Care Provider [phone] Reason for Referral * Physical Therapy (Routine) - Closed by system - Referral Specialty Diagnoses / Procedures Referred By Contac t Referred To Contact Physical Therapy Diagnoses Herniated nucleus pulposus, C6-7 Rios Acuna MD [facility] [place] [address] Referral ID Status Reason Start Date Expiration Date Visits Requested Visits Authorized [id number] Closed by system - Referral Evaluate and Treat 12/02/2013 05/31/2014 1 1 Reason for Visit * Reason Comments Follow Up Surgery Encounter Details Date Type Department Care Team (Late st Contact Info) Description 12/02/2013 11:20 AM EDT Office [place] [address] Rios Acuna MD [facility] [address] Herniated nucleus pulposus, C6-7 Right, S/P C5-7 [...] Patient Instructions * Patient Instructions* Magda Huff, OFFICE RENTAL CLERK - 12/02/2013 11:09 AM EDT Images from the original note were not included. [facility] Stopping Smoking: After Your Visit Your [...] a smoking cessation program, such as the [employer]'s Romeo from Smoking program. ?? Set a quit [...] in several forms, many of them available vahm-vie-oarvjoh: ?? Nicotine patches ?? Nicotine gum and [...] more? Visit our health information library at [email or web address] You can also view health information on [employer] Experience, your personal patient account. Log in or sign up today. Enter Y522 in the search box to learn more about Stopping Smoking: After Your Visit. ?? [id number] [employer]. Care instructions adapted under license by [facility]. This care instruction is for use with your licensed healthcare professional. If you have questions about a medical condition or this instruction, always ask your healthcare professional. [employer] disclaims any warranty or liability for your use of this information. Content Version: 9.9.427776; Last Revised: March 17, 2013 documented in [...] myelopathy documented in this encounter Care Teams American Sign Language Teacher Relationship Specialty Start Date End Date Mary Alice Cage APRN PCP - General 10/12/11 11/12/18 documented as of this encounter
--- OUTSIDE RECORDS SUMMARY | 2024-06-15 10:34 | XMS_ITS | Encounter Summary ---
Author Organization [facility] Address [facility] Musa [place] [address] Care Team Providers Care Sleeve Baster Name Role Phone Mary Alice Cage APRN Primary Care Provider [phone] Encounter Details Date Type Department Care Team (Latest Contact Info) Description 07/07/2014 8:52 AM EST - 07/07/2014 11:59 PM [facility] Hospital Encounter XRay at [address] [place] [address] Radiculopathy of lumbar region Social History Tobacco [...] unspecified documented in this encounter Care Teams Sleeve Baster Relationship Specialty Start Date End Date Mary Alice Cage APRN PCP - General 10/12/11 11/12/18 documented as of this encounter
--- OUTSIDE RECORDS SUMMARY | 2024-06-15 10:34 | XMS_ITS | Encounter Summary ---
Author Organization [facility] [place] [address] Care Team Providers Care Intelligence Operations Name Role Phone WashingtonMary Alice davis Rajendra ROY Primary Care Provider [phone] Reason for Visit * Reason Comments Back Pain Bilateral Leg Pain Encounter Details Date Type Department Care Team (Latest Contact Info) Description 04/28/2014 9:15 AM EDT Procedure [place] [address] [facility] [place] [address] Displacement of lumbar intervertebral disc without myelopathy [...] No 2. Patient states they have a test car driver to transport after procedure? Yes 3. [...] discharge criteria to the care of a test car driver. The patient received written instructions as [...] the entire procedure. KIM FORBES DO, MPH [facility]-subspecialty board certification in Pain Medicine Attending Physician-Pain Management CC: Rios Acuna MD [facility] [place] [address] documented in this encounter Plan of Treatment [...] discharge criteria ??to the care of a test car driver. ?? The patient received written instructions [...] Attending Physician-Pain Management CC: Rios Acuna MD [facility] [place] [address] Procedure Note Ivana Jung MD - 04/28/2014 [...] discharge criteria to the care of a test car driver. The patient receivedwritten instructions as documented [...] Attending Physician-Pain Management CC: Rios Acuna MD [facility] [place] [address] Kim Jeong DO PROCEDURE/MINOR SURG ICAL ORDERABLES [...] mLs documented in this encounter Care Teams Intelligence Operations Relationship Specialty Start Date End Date MaryA lice Cage APRN PCP - General 10/12/11 11/12/18 documented as of this encounter
--- OUTSIDE RECORDS SUMMARY | 2024-06-15 10:34 | XMS_ITS | Encounter Summary ---
[place] [address] Care Team Providers Care Dental Floss Packer Name Role Phone MillsMary Alice davis Rajendra ROY Primary Care Provider [phone] Reason for Visit * Reason Onset Date Comments Prior Authorization 11/26/2013 dexilant Encounter Details Date Type Department Care Team (Late st Contact Info) Description 11/26/2013 Telephone [place] [address] Debbie Skinner, staff development manager (dexilant ) Social History Tobacco Use Types [...] 1 by mouth daily Insurance & Phone #:[place] [phone] ID #: Trialed (dosage, frequency): Prilosec, Aciphex Notes: [place] approved for one year. documented in this encounter Plan of Treatment Not on file documented as of this encounter Visit Diagnoses Not on filedocumented in this encounter Care Teams Dental Floss Packer Relationship Specialty Start Date End Date Mary Alice Cage APRN PCP - General 10/12/11 11/12/18 documented as of this encounter
--- OUTSIDE RECORDS SUMMARY | 2024-06-15 10:34 | XMS_ITS | Encounter Summary ---
[place] [address] Care Team Providers Care Pony Rougher Name Role Phone CamasMary Alice davis Rajendra ROY Primary Care Provider [phone] Reason for Referral * Consultation (Routine) - Closed Specialty Diagnoses / Procedures Referred By Chava t Referred To Contact Pain Management Diagnoses Radiculopathy of lumbar region Rios Acuna MD [facility] [place] [address] [facility] [address] [place] [address] Referral ID Status Reason Start Date Expiration Date V isits Requested Visits Authorized [id number] Closed Consult, Test & Treat 05/17/2014 11/13/2014 1 1 Reason for Visit * Reason Onset Date Comments Other 05/17/2014 response to inje ction. Encounter Details Date Type Department Care Team (Late st Contact Info) Description 05/17/2014 Telephone [place] [address] Milvia Fernandez, RN Other (response [...] unspecified documented in this encounter Care Teams Pony Rougher Relationship Specialty Start Date End Date Mary Alice Cage APRN PCP - General 10/12/11 11/12/18 documented as of this encounter
--- OUTSIDE RECORDS SUMMARY | 2024-06-15 10:34 | XMS_ITS | Encounter Summary ---
Author Organization [facility] [place] [address] Care Team Providers Care Elevator Starter Name Role Phone Mary Alice Domingo MANUELA Primary Care Provider [phone] Reason for Visit * Reason Comments Follow-up Encounter Details Date Type Department Care Team (Late st Contact Info) Description 11/24/2013 1:00 PM EDT Follow-[place] [address] Justin Starkey MD [facility] [place] [address] IBS (irritable bowel syndrome) (Primary Dx); Diarrhea [...] 53 yrs, 1960 PCP: MARY ALICE DOMINGO BACK ORDER CLERK: NONE REASON FOR VISIT PRIOR OFFICE VISITS [...] HISTORY 1. Emergency hernia repair May 2011, [place]. 2. Cholecystectomy 11/24/12. 3. Spinal fusion surgery [...] WITH PATIENT Total Minutes: 30 Minutes of Lipq-ro-Sqtu Counseling: The entire visit was spent in gdaj-rb-stfc counseling. I will see the patient back in followup in six months. Justin Starkey, PhD, MD colorer, [facility] [employer] Section of Gastroenterology and Hepatology [facility] [address] V: [phone] F: [phone] MICKY/mian CC/EC: PCP - staff msg copy 11/27/13 documented in this encounter Plan of Treatment Not on file documented as of this encounter Visit Diagnoses Diagnosis IBS (irritable bowel syndrome)- Primary Irritable bowel syndrome Diarrhea documented in this encounter Care Teams Elevator Starter Relationship Specialty Start Date End Date Mary Alice Domingo APRN PCP - General 10/12/11 11/12/18 documented as of this encounter
--- OUTSIDE RECORDS SUMMARY | 2024-06-15 10:34 | XMS_ITS | Encounter Summary ---
[place] [address] Care Team Providers Care Digital Marketing Lead Name Role Phone Mary Alice Cage MANUELA Primary Care Provider [phone] Encounter Details Date Type Department Care Team (Late st Contact Info) Description 04/26/2014 Telephone [place] [address] Lexie Awad RN Social History Tobacco Use [...] RF patients with a pacemaker) on 04/28/2014. Driveway Attendant: The patient was reminded that they need to have a fork truck driver accompany them to her procedure [...] No Prior to checking in at [employer], please be sure to empty your bladder. [...]
--- OUTSIDE RECORDS SUMMARY | 2024-06-15 10:34 | XMS_ITS | Encounter Summary ---
Author Organization [facility] [address] Care Team Providers Care Pricing Director Name Role Phone Mary Alice Cage APRN Primary Care Provider [phone] Reason for Visit * Reason Onset Date Comments Medication Refill 12/04/2013 Encounter Details Date Type Department Care Team (Late st Contact Info) Description 12/04/2013 Ref[place] [address] Justin Starkey MD [facility] [place] [address] Social History Tobacco Use Types Packs/Day Years [...] on filedocumented in this encounter Care Teams Pricing Director Relationship Specialty Start Date End Date Mary Alice Cage APRN PCP - General 10/12/11 11/12/18 documented as of this encounter
--- OUTSIDE RECORDS SUMMARY | 2024-06-15 10:34 | XMS_ITS | Encounter Summary ---
Author Organization [facility] [place] [address] Care Team Providers Care Machine Tool Designer Name Role Phone Mary Alice Cage APRN Primary Care Provider [phone] Reason for Visit * Reason Onset Date Comments Medication Refill 12/04/2013 Encounter Details Date Type Department Care Team (Late st Contact Info) Description 12/04/2013 Ref[place] [address] Justin Starkey MD [facility] [place] [address] Social History Tobacco Use Types Packs/Day Years [...] filedocumented in this encounter Care Teams Machine Tool Designer Relationship Specialty Start Date End Date Mary Alice Cage APRN PCP - General 10/12/11 11/12/18 documented as of this encounter
--- OUTSIDE RECORDS SUMMARY | 2024-06-15 10:34 | XMS_ITS | Encounter Summary ---
[place] [address] Care Team Providers Care Instrument Specialist Name Role Phone NilesMary Alice Rajendra ROY Primary Care Provider [phone] Encounter Details Date Type Department Care Team (Latest Contact Info) Description 04/07/2014 1:53 PM EDT - 04/07/2014 11:59 PM EDT Hospital [place] [address] CLIN[address], [address] CHILD Herniated nucleus pulposus, C6-7 [...] of the clinical situation. (Reference-Jarvik et al, [id number]) Findings: (prevalence in patients without low back [...] myelopathy documented in this encounter Care Teams Instrument Specialist Relationship Specialty Start Date End Date Mary Alice Cage APRN PCP - General 10/12/11 11/12/18 documented as of this encounter
--- OUTSIDE RECORDS SUMMARY | 2024-06-15 10:34 | XMS_ITS | Encounter Summary ---
[place] [address] Care Team Providers Care Respiratory Director Name Role Phone Mary Alice Cage APRN Primary Care Provider [phone] Encounter Details Date Type Department Care Team (Late st Contact Info) Description 12/04/2013 Orders [place] [address] Rosaura Wolf, [facility] Social History Tobacco Use Types Packs/Day Years [...] on filedocumented in this encounter Care Teams Respiratory Director Relationship Specialty Start Date End Date Mary Alice Cage APRN PCP - General 10/12/11 11/12/18 documented as of this encounter
--- OUTSIDE RECORDS SUMMARY | 2024-06-15 10:34 | XMS_ITS | Encounter Summary ---
Author Organization [facility] [place] [address] Care Team Providers Care Manager Of Tax Name Role Phone Mary Alice Cage APRN Primary Care Provider [phone] Reason for Visit * Reason Comments Medication Refill Encounter Details Date Type Department Care Team (Late st Contact Info) Description 11/07/2013 Refill [place] [address] Samra Goodson [facility] [place] [address] Social History Tobacco Use Types Packs/Day Years [...] filedocumented in this encounter Care Teams Manager Of Tax Relationship Specialty Start Date End Date Mary Alice Cage APRN PCP - General 10/12/11 11/12/18 documented as of this encounter
--- OUTSIDE RECORDS SUMMARY | 2024-06-15 10:34 | XMS_ITS | Encounter Summary ---
[place] [address] Care Team Providers Care Fiberglass Model Maker Name Role Phone CottonMary Alice davis Rajendra ROY Primary Care Provider [phone] Reason for Visit * Reason Onset Date Comments Medication Refill 09/17/2013 refill post op pain meds. Encounter Details Date Type Department Care Team (Late st Contact Info) Description 09/17/2013 Refill [place] [address] Milvia Fernandez, RN Social History Tobacco Use [...] able to have prescription picked [place] from [facility]. She states that she has tried to [...] on filedocumented in this encounter Care Teams Fiberglass Model Maker Relationship Specialty Start Date End Date Mary Alice Cage APRN PCP - General 10/12/11 11/12/18 documented as of this encounter
--- OUTSIDE RECORDS SUMMARY | 2024-06-15 10:34 | XMS_ITS | Encounter Summary ---
[place] [address] Care Team Providers Care Paper Mill Manager Name Role Phone GoliadMary Alice davis Rajendra ROY Primary Care Provider [phone] Reason for Visit * Reason Onset Date Comments Other 06/23/2014 follow up to inj ection Encounter Details Date Type Department Care Team (Late st Contact Info) Description 06/23/2014 Telephone [place] [address] Lacey Steiner, RN Other (follow [...] unspecified documented in this encounter Care Teams Paper Mill Manager Relationship Specialty Start Date End Date Mary Alice Cage APRN PCP - General 10/12/11 11/12/18 documented as of this encounter
--- OUTSIDE RECORDS SUMMARY | 2024-06-15 10:34 | XMS_ITS | Encounter Summary ---
[place] [address] Care Team Providers Care Electrodynamicist Name Role Phone Mary Alice Cage MANUELA Primary Care Provider [phone] Reason for Visit * Reason Comments Neck Pain Bilateral Shoulder Pain Encounter Details Date Type Department Care Team (Late st Contact Info) Description 10/05/2013 11:20 AM EST Office [place] [address] Rios Acuna MD [facility] [place] [address] Herniated nucleus pulposus, C6-7 Right, S/P C5-7 [...] a prescription for a soft collar to cone picker at [facility]. I will plan to [...] myelopathy documented in this encounter Care Teams Electrodynamicist Relationship Specialty Start Date End Date Mary Alice Cage APRN PCP - General 10/12/11 11/12/18 documented as of this encounter
--- OUTSIDE RECORDS SUMMARY | 2024-06-15 10:34 | XMS_ITS | Encounter Summary ---
Author Organization [facility] [address] Care Team Providers Care Control Panel Operator Crude Unit Name Role Phone Mary Alice Cage APRN Primary Care Provider [phone] Reason for Visit * Reason Comments Medication Refill Encounter Details Date Type Department Care Team (Late st Contact Info) Description 10/21/2013 Refill [place] [address] Samra Goodson CONTROL OPERATOR [facility] [place] [address] Social History Tobacco Use Types Packs/Day Years [...] on filedocumented in this encounter Care Teams Control Panel Operator Crude Unit Relationship Specialty Start Date End Date Mary Alice Cage APRN PCP - General 10/12/11 11/12/18 documented as of this encounter
--- OUTSIDE RECORDS SUMMARY | 2024-06-15 10:34 | XMS_ITS | Encounter Summary ---
[place] [address] Care Team Providers Care Gauge Controller Name Role Phone Mary Alice Cage Rajendra ROY Primary Care Provider [phone] Reason for Visit * Reason Onset Date Comments Prior Authorization 11/30/2013 xifaxan Encounter Details Date Type Department Care Team (Late st Contact Info) Description 11/30/2013 Telephone [place] [address] Debbie Skinner, hand blocker (xifaxan ) Social History Tobacco Use Types [...] for 10 days Insurance & Phone #: [place] [phone] ID #: [id number] Trialed (dosage, frequency): neomycin Notes: [place] approved - pharmacy informed. documented in this encounter Plan of Treatment Not on file documented as of this encounter Visit Diagnoses Not on filedocumented in this encounter Care Teams Gauge Controller Relationship Specialty Start Date End Date Mary Alice Cage APRN PCP - General 10/12/11 11/12/18 documented as of this encounter
--- OUTSIDE RECORDS SUMMARY | 2024-06-15 10:34 | XMS_ITS | Encounter Summary ---
[place] [address] Care Team Providers Care Hoop Driving Machine Operator Name Role Phone RunnelsMary Alice davis MANUELA Primary Care Provider [phone] Reason for Visit * Reason Comments Low Back Pain Bilateral Leg Pain Encounter Details Date Type Department Care Team (Latest Contact Info) Description 07/07/2014 10:00 AM EST Office [place] [address] Rios Acuna MD [facility] [place] [address] Radiculopathy of lumbar region Discharge Disposition: Home [...] Prothrombin Time 12.0(L) 12.5 - 15.[address] [facility] Comment: [facility] Transfusion Committee Guidelines: INR less than 2.0, [...] intervals supplied above were not validated at [facility]. Results from pediatric patients should be interpreted [...] the following links into your internet browser. [email or web address] Blood specimen (specimen) 08/17/2014 10:17 AM EST 08/17/2014 10:25 AM EST Narrative Resulting Agency Comment Spec In Lab Rios Acuna MD CHEMISTRY ORDERABLES [facility] [employer] * SCAN DOC: ECG (08/10/2014 12:00 AM EST) Scanning Provider MEDIA MGR SCAN EXT O RDR/RSLT documented in this encounter Visit Diagnoses Diagnosis Radiculopathy of lumbar region Thoracic or lumbosacral neuritis or radiculitis, unspecified Radiculopathy of lumbar region Thoracic or lumbosacral neuritis or radiculitis, unspecified documented in this encounter Care Teams Hoop Driving Machine Operator Relationship Specialty Start Date End Date Mary Alice Cage APRN PCP - General 10/12/11 11/12/18 documented as of this encounter
--- OUTSIDE RECORDS SUMMARY | 2024-06-15 10:34 | XMS_ITS | Encounter Summary ---
[place] [address] Care Team Providers Care Application Chemist Name Role Phone Mary Alice Cage APRN Primary Care Provider [phone] Reason for Visit * Reason Onset Date Comments Medication Refill 06/11/2014 Encounter Details Date Type Department Care Team (Late st Contact Info) Description 06/11/2014 Ref[place] [address] Renetta Greenfield MA GASTROENTEROLOGY DEPT Social History [...] on filedocumented in this encounter Care Teams Application Chemist Relationship Specialty Start Date End Date Mary Ailce Cage APRN PCP - General 10/12/11 11/12/18 documented as of this encounter
--- OUTSIDE RECORDS SUMMARY | 2024-06-15 10:34 | XMS_ITS | Encounter Summary ---
Author Organization [facility] [place] [address] Care Team Providers Care Irrigation Specialist Name Role Phone Cb [place] Primary Care Provider [phone] Reason for Visit * Reason Onset Date Comments Medication Refill 09/15/2013 Encounter Details Date Type Department Care Team (Latest Contact Info) Description 09/15/2013 Refill Initial Mahnaz Fischer PA [facility] [place] [address] Social History Tobacco Use Types Packs/Day Years [...] on filedocumented in this encounter Care Teams Irrigation Specialist Relationship Specialty Start Date End Date Cb [place] PA [address] [place], [place] [address] PCP - General Family Medicine 04/08/20 documented as of this encounter
--- OUTSIDE RECORDS SUMMARY | 2024-06-15 10:34 | XMS_ITS | Encounter Summary ---
[place] [address] Care Team Providers Care Pipe Insulator Name Role Phone BurnetMary Alice davis MANUELA Primary Care Provider Encounter Details Date Type Department Care Team (Late Contact Info) Description 05/28/2014 Telephone [place] [address] Lexie Awad RN Social History Tobacco Use [...] a pacemaker) on 06/01/14 (date of procedure). Passenger Representative: The patient was reminded that they need to have a restaurant delivery driver accompany them to her procedure who [...] No Prior to checking in at [employer], please be sure to empty your bladder. [...] on 06/01/14 (date of procedure) with their restaurant delivery driver. 2. Following instructions left in the [...] Awad RN - 05/28/2014 8:36 AM EDT oPppy Mclaughlin :1960 Message left: I left a [...] on filedocumented in this encounter Care Teams Pipe Insulator Relationship Specialty Start Date End Date Mary Alice Cage APRN PCP - General 10/12/11 11/12/18 documented as of this encounter
--- OUTSIDE RECORDS SUMMARY | 2024-06-15 10:34 | XMS_ITS | Encounter Summary ---
[place] [address] Care Team Providers Care Marketing Copywriter Name Role Phone Mary Alice Cage APRN Primary Care Provider [phone] Encounter Details Date Type Department Care Team (Late st Contact Info) Description 03/23/2014 Telephone [place] [address] Alida Tabares V Social History Tobacco Use [...] filedocumented in this encounter Care Teams Marketing Copywriter Relationship Specialty Start Date End Date Mary Alice Cage APRN PCP - General 10/12/11 11/12/18 documented as of this encounter
--- OUTSIDE RECORDS SUMMARY | 2024-06-15 10:34 | XMS_ITS | Encounter Summary ---
Author Organization [facility] [place] [address] Care Team Providers Care Computer Programming Professor Name Role Phone Mary Alice Cage APRN Primary Care Provider [phone] Reason for Visit * Reason Comments Medication Refill Encounter Details Date Type Department Care Team (Late st Contact Info) Description 10/21/2013 Refill [place] [address] Malia Vidal AUTOMAT[employer]OVE [facility] [place] [address] Social History Tobacco Use Types Packs/Day Years [...] on filedocumented in this encounter Care Teams Computer Programming Professor Relationship Specialty Start Date End Date Mary Alice Cage APRN PCP - General 10/12/11 11/12/18 documented as of this encounter
--- OUTSIDE RECORDS SUMMARY | 2024-06-15 10:34 | XMS_ITS | Encounter Summary ---
[place] [address] Care Team Providers Care Process Coordinator Name Role Phone Mary Alice Cage MANUELA Primary Care Provider [phone] Reason for Visit * Reason Onset Date Comments Back Pain 08/16/2014 Seen in local ED this weekend for back pain - given Percocet - It's not touching it Encounter Details Date Type Department Care Team (Late st Contact Info) Description 08/16/2014 Telephone Spine Center at [place] [phone] Ashanti Wu RN Back Pain (Seen in [...] increased. She was seen in the EDat [facility] in [place], [place]. She stated that she was given [...] that Dr Acuna was not available in clinicuntmt Saturday. He did not order pain medication [...] on filedocumented in this encounter Care Teams Process Coordinator Relationship Specialty Start Date End Date Mary Alice Cage APRN PCP - General 10/12/11 11/12/18 documented as of this encounter
--- OUTSIDE RECORDS SUMMARY | 2024-06-15 10:34 | XMS_ITS | Encounter Summary ---
[place] [address] Care Team Providers Care Ticket Maker Name Role Phone BergenMary Alice davis MANUELA Primary Care Provider [phone] Reason for Visit * Reason Onset Date Comments Other 05/05/2014 follow up to inj ection Encounter Details Date Type Department Care Team (Late st Contact Info) Description 05/05/2014 Tele[place] [address] Lacey Steiner, RN Other (follow [...] on filedocumented in this encounter Care Teams Ticket Maker Relationship Specialty Start Date End Date Mary Alice Cage APRN PCP - General 10/12/11 11/12/18 documented as of this encounter
--- OUTSIDE RECORDS SUMMARY | 2024-06-15 10:34 | XMS_ITS | Encounter Summary ---
[place] [address] Care Team Providers Care Harvest Manager Name Role Phone PinalMary Alice davis Rajendra ROY Primary Care Provider [phone] Reason for Visit * Reason Onset Date Comments Medication Refill 10/16/2013 Encounter Details Date Type Department Care Team (Late st Contact Info) Description 10/16/2013 [place] [address] Chen Valencia, RN Social History Tobacco Use [...] on filedocumented in this encounter Care Teams Harvest Manager Relationship Specialty Start Date End Date Mary Alice Cage APRN PCP - General 10/12/11 11/12/18 documented as of this encounter
--- OUTSIDE RECORDS SUMMARY | 2024-06-15 10:34 | XMS_ITS | Encounter Summary ---
[place] [address] Care Team Providers Care Imaging Account Manager Name Role Phone NomeMary Alice davis MANUELA Primary Care Provider [phone] Encounter Details Date Type Department Care Team (Late st Contact Info) Description 06/17/2014 [place] [address] Nina Hollingsworth, RN DEPT OF GASTROENTEROLOGY Social [...] the referral. Or francisco j PT in [place], if she wants (but I believe we're [...] on filedocumented in this encounter Care Teams Imaging Account Manager Relationship Specialty Start Date End Date Mary Alice Cage APRN PCP - General 10/12/11 11/12/18 documented as of this encounter
--- OUTSIDE RECORDS SUMMARY | 2024-06-15 10:34 | XMS_ITS | Encounter Summary ---
[place] [address] Care Team Providers Care Voice Writing Reporter Name Role Phone Mary Alice Cage MANUELA Primary Care Provider [phone] Reason for Visit * Reason Comments Low Back Pain Encounter Details Date Type Department Care Team (Latest Contact Info) Description 04/07/2014 4:00 PM EDT Office [place] [address] Rios Acuna MD [facility] [address] Radiculopathy of lumbar region (Primary Dx) Discharge [...] Patient Instructions * Patient Instructions* Magda Huff, DISPOSAL PLANT OPERATOR - 04/07/2014 5:00 PM EDT Images from the original note were not included. [facility] Stopping Smoking: After Your Visit Your [...] a smoking cessation program, such as the [employer]'s [place] from Smoking program. ?? Set a quit [...] in several forms, many of them available khvb-pdn-ekmwfii: ?? Nicotine patches ?? Nicotine gum and [...] more? Visit our health information library at [email or web address]/healthinfo You can also view health information on [employer], your personal patient account. Log in or sign up today. Enter Y522 in the search box to learn more about Stopping Smoking: After Your Visit. ?? [id number] [employer]. Care instructions adapted under license by [facility]. This care instruction is for use with your licensed healthcare professional. If you have questions about a medical condition or this instruction, always ask your healthcare professional. [employer] disclaims any warranty or liability for your use of this information. Content Version: 9.9.481547; Last Revised: March 17, 2013 documented in [...] unspecified documented in this encounter Care Teams Voice Writing Reporter Relationship Specialty Start Date End Date Mary Alice Cage APRN PCP - General 10/12/11 11/12/18 documented as of this encounter
--- OUTSIDE RECORDS SUMMARY | 2024-06-15 10:34 | XMS_ITS | Encounter Summary ---
Author Organization [facility] [place] [address] Care Team Providers Care Factory Maintenance Manager Name Role Phone CoosaMary Alice davis Rajendra ROY Primary Care Provider [phone] Reason for Visit * Reason Comments Back Pain Encounter Details Date Type Department Care Team (Latest Contact Info) Description 06/01/2014 9:35 AM EDT Procedure [place] [address] [facility] [place] [address] Trochanteric bursitis, right Discharge Disposition: Home Social [...] 2. 3. Patient states they have a interstate bus driver to transport after procedure? Yes 4. [...] this entire procedure. Kim Forbes DO, MPH [facility]-subspecialty board certification in Pain Medicine Attending Physician-Pain Management CC: MARY ALICE DOMINGO, FIXTURE FABRICATOR REPAIRER [address] [place] [address] Rios Acuna MD [facility] [address] documented in this encounter Plan of Treatment [...] Service: ??06/01/2014 Patient: ??Poppy Mclaughlin ?? Provider: ??KIM FORBES DO, MPH COMMENTS: None Poppy Mclaughlin [...] this entire procedure. Kim Forbes DO, MPH [facility]-subspecialty board certification in Pain Medicine Attending Physician-Pain Management CC: MARY ALICE DOMINGO APRN [address] [place] [address] Rios Acuna MD [facility] [address] Procedure Note Kim Forbes DO - 06/03/2014 [...] this entire procedure. Kim Forbes DO, MPH [facility]-subspecialty board certification in Pain Medicine Attending Physician-Pain Management CC: MARY ALICE DOMINGO APRN [address] [place] [address] Rios Acuna MD [facility] [place] [address] Kim [place] V, DO PROCEDURE/MINOR SURG ICAL ORDERABLES documented [...] mg documented in this encounter Care Teams Factory Maintenance Manager Relationship Specialty Start Date End Date Mary Alice Domingo APRN PCP - General 10/12/11 11/12/18 documented as of this encounter
--- OUTSIDE RECORDS SUMMARY | 2024-06-15 10:34 | XMS_ITS | Encounter Summary ---
Author Organization [facility] [place] [address] Care Team Providers Care Banquet Pilot Name Role Phone [place]oaMary Alice davis Rajendra ROY Primary Care Provider [phone] Reason for Visit * Reason Comments Follow-up Encounter Details Date Type Department Care Team (Late st Contact Info) Description 08/03/2014 3:45 PM EST Follow-[place] [address] Osmany Holloway MD [facility] DR [place] [address] Edema; Dyspnea; Hypertension Discharge Disposition: Home Social [...] ODETTE Del Cid ?(Age): 1960(54) Med Rec#: ?[id number] ? Sex: ?F ? Site Loc: ?[facility] ? Ht / Wt: ??154(cm)/91(kg) Pt. Loc: ? Echo Lab ? BSA: ?1.97 Study Date: ?11/30/2014 ? Pt. Type: Outpatient Tape: ? Referring: Osmany Holloway Tin Flipper: Andriy Garland Diagnosis:CPT Code(s): ??Echo Full (15189), ??Spectral Doppler (89376), Color Doppler (57664), Indication(s): ??Edema Rhythm: Sinus HR ?BP ?150/88 [...] ? Mid-Inferior ?Normal ? Mid-Inferoseptal ?Normal ? [place]-Septal ? Normal ? [place]-Anterior ? Normal ? [place]-Lateral ?Normal ? [place]-Inferior ? Normal ? [place]-Tip ?Normal ? Chambers ?Value ?Units (Range) ? [...] 11/30/2014 09:40:46 Images reviewed and interpretation verified [facility] Cardiac Ultrasound Laboratory Procedure Note Vinicio Skelton MD - 11/30/2014 Procedure: Transthoracic Echocardiogram Patient: ODETTE FRANCISCO(Age): 1960(54) Med Rec#: [id number] Sex: F Site Loc: [facility] Ht / Wt: 154(cm)/91(kg) Pt. Loc: Echo Lab BSA: 1.97 Study Date: 11/30/2014 Pt. Type: Outpatient Tape: Referring: Osmany Holloway Tin Flipper: Andriy Garland Diagnosis:CPT Code(s): Echo Full (87991), Spectral Doppler (53090), Color Doppler (75645), Indication(s): Edema Rhythm: Sinus HR BP 150/88 [...] Normal Mid-Posterolateral Normal Mid-Inferior Normal Mid-Inferoseptal Normal [place]-Septal Normal [place]-Anterior Normal [place]-Lateral Normal [place]-Inferior Normal [place]-Tip Normal Chambers Value Units (Range) LV EF [...] 11/30/2014 09:40:46 Images reviewed and interpretation verified [facility] Cardiac Ultrasound Laboratory Osmany Overton MD ECHO ORDERABLES documented in this encounter Visit Diagnoses Diagnosis Edema Dyspnea Other dyspnea and respiratory abnormality Hypertension Unspecified essential hypertension Dyspnea Other dyspnea and respiratory abnormality Edema Dyspnea Other dyspnea and respiratory abnormality documented in this encounter Care Teams Banquet Pilot Relationship Specialty Start Date End Date Mary Alice Cage APRN PCP - General 10/12/11 11/12/18 documented as of this encounter
--- OUTSIDE RECORDS SUMMARY | 2024-06-15 10:34 | XMS_ITS | Encounter Summary ---
Author Organization [facility] Address [facility] [address] Care Team Providers Care Account Support Analyst Name Role Phone Mary Alice Cage APRN Primary Care Provider [phone] Encounter Details Date Type Department Care Team (Latest Contact Info) Description 10/05/2013 10:23 AM EST - 10/05/2013 11:59 PM [facility] Hospital Encounter XRay at [address] [place] [address] Herniated nucleus pulposus, C6-7 Right, with degenderative [...] myelopathy documented in this encounter Care Teams Account Support Analyst Relationship Specialty Start Date End Date Mary Alice Cage APRN PCP - General 10/12/11 11/12/18 documented as of this encounter
--- OUTSIDE RECORDS SUMMARY | 2024-06-15 10:34 | XMS_ITS | Encounter Summary ---
[place] [address] Care Team Providers Care Information Resources Manager Name Role Phone Mary Alice Cage APRN Primary Care Provider [phone] Reason for Referral * Consultation (Routine) - Closed Specialty Diagnoses / Procedures Referred By Chava alejo Referred To Contact Pain Management Diagnoses Radiculopathy of lumbar region Rios Acuna MD [facility] [place] [address] [facility] [address] [place] [address] Referral ID Status Reason Start Date Expiration Date V isits Requested Visits Authorized [id number] Closed Assume Subset of Care 04/19/2014 10/16/2014 1 1 Reason for Visit * Reason Onset Date Comments Other 04/19/2014 Encounter Details Date Type Department Care Team (Late st Contact Info) Description 04/19/2014 Telephone [place] [address] Lacey Steiner, RN Other Social [...] unspecified documented in this encounter Care Teams Information Resources Manager Relationship Specialty Start Date End Date Mary Alice Cage APRN PCP - General 10/12/11 11/12/18 documented as of this encounter
--- OUTSIDE RECORDS SUMMARY | 2024-06-15 10:34 | XMS_ITS | Encounter Summary ---
[place] [address] Care Team Providers Care Hide Dyer Name Role Phone [place] AugustineMary Alice davis MANUELA Primary Care Provider [phone] Encounter Details Date Type Department Care Team (Late st Contact Info) Description 04/26/2014 Telephone [place] [address] Lexie Awad RN Social History Tobacco Use [...] procedure start time) on 04/28/2014 with their assembly line driver. 2. Following instructions left in the message: - Call the Pain Clinic Nurse at for: ~Procedure instructions. Lexie Awad RN documented in this encounter Plan of Treatment Not on file documented as of this encounter Visit Diagnoses Not on filedocumented in this encounter Care Teams Hide Dyer Relationship Specialty Start Date End Date Mary Alice Cage APRN PCP - General 10/12/11 11/12/18 documented as of this encounter
--- OUTSIDE RECORDS SUMMARY | 2024-06-15 10:34 | XMS_ITS | Encounter Summary ---
[place] [address] Care Team Providers Care Recycling Program Manager Name Role Phone Mary Alice Cage APRN Primary Care Provider Reason for Visit * Reason Onset Date Comments Medication Refill 06/11/2014 Encounter Details Date Type Department Care Team (Late st Contact Info) Description 06/11/2014 [place] [address] Renetta Greenfield MA GASTROENTEROLOGY DEPT Social History [...] on filedocumented in this encounter Care Teams Recycling Program Manager Relationship Specialty Start Date End Date Mary Alice Cage APRN PCP - General 10/12/11 11/12/18 documented as of this encounter
--- OUTSIDE RECORDS SUMMARY | 2024-06-15 10:34 | XMS_ITS | Encounter Summary ---
Author Organization [facility] [place] [address] Care Team Providers Care Auto Mechanics Instructor Name Role Phone [place] Mary Alice Rajendra ROY Primary Care Provider Reason for Referral * Consultation (Routine) - Closed Specialty Diagnoses / Procedures Referred By Chava alejo Referred To Contact Gastroenterology Diagnoses Bloat Esophageal reflux Diarrhea IBS (irritable bowel syndrome) Justin Starkey MD [facility] [place] [address] [facility] Gastro [address] [place] [address] Referral ID Status Reason Start Date Expiration Date V isits Requested Visits Authorized [id number] Closed Consult, Test & Treat 05/20/2014 11/16/2014 1 1 Encounter Details Date Type Department Care Team (Late st Contact Info) Description 05/20/2014 11:00 AM EDT Follow-[place] [address] Justin Starkey MD [facility] [place] [address] Bloat (Primary Dx); Esophageal reflux; Diarrhea; IBS [...] 53 yrs, 1960 PCP: MARY ALICE DOMINGO TAR POT MAN: NONE REASON FOR VISIT This is a [...] although she continues to have fairly significant ELR-wnml-chljpwos symptoms. 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 A treatment plan is outlined below. ALLERGIES/ADR See eD-H; reviewed. MEDICATIONS See eD-H; reviewed. PAST MEDICAL HISTORY 1. See prior records. 2. IBS with diarrhea. 3. 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 5. Reflux. 6. Chronic back pain. PAST SURGICAL HISTORY 1. Emergency hernia repair May 2011, [place]. 2. Cholecystectomy 11/24/12. 3. Cervical spine fusion [...] WITH PATIENT Total Minutes: 40 Minutes of Xpso-uq-Sexw Counseling: The entire visit was spent in fvkm-dx-cxmj counseling and coordination of care. Justin Starkey, PhD, MD strainer mill operator, [facility] [employer] Section of Gastroenterology and Hepatology [facility] [address] V: [phone] F: [phone] MICKY/mian CC/EC: PCP - staff msg copy [...] syndrome documented in this encounter Care Teams Auto Mechanics Instructor Relationship Specialty Start Date End Date Mary Alice Domingo APRN PCP - General 10/12/11 11/12/18 documented as of this encounter
--- OUTSIDE RECORDS SUMMARY | 2024-06-15 10:34 | XMS_ITS | Encounter Summary ---
[place] [address] Care Team Providers Care Director Automotive Name Role Phone Mary Alice Domingo APRN Primary Care Provider [phone] Encounter Details Date Type Department Care Team (Latest Contact Info) Description 06/01/2014 1:00 PM EDT Procedure [place] [address] CLINIC, Mary Alice Garcia, RN Fecal incontinence [...] 53 yrs, 1960 PCP: MARY ALICE DOMINGO WOMEN SPECIALIST: NONE STUDY DATE: 06/01/14 PROVIDER: Justin Starkey, PhD, [place] ([id number]) INDICATION Fecal incontinence. METHODS An anorectal manometry study was performed in a supervised setting, after verbal consent, using Mobii module with the AeroS[employer] software. A solid-state, four-channel circumferential transducer was [...] related to hypervigilance. Justin Starkey, PhD, MD plumbing technician, [facility] [employer] Section of Gastroenterology and Hepatology [facility] [place] [address] V: [phone] F: [phone] MICKY/mian EC/CC: PCP - staff msg copy [...] feces documented in this encounter Care Teams Director Automotive Relationship Specialty Start Date End Date Mary Alice Domingo APRN PCP - General 10/12/11 11/12/18 documented as of this encounter
--- OUTSIDE RECORDS SUMMARY | 2024-06-15 10:34 | XMS_ITS | Encounter Summary ---
Author Organization [facility] [place] [address] Care Team Providers Care Sole Painter Name Role Phone [place]odaMary Alice davis MANUELA Primary Care Provider [phone] Encounter Details Date Type Department Care Team (Late st Contact Info) Description 05/17/2014 Orders [place] [address] José Manuel Irwin MD [facility] [place] [address] Social History Tobacco Use Types Packs/Day Years [...] a Non-reportable exam José Manuel Irwin MD [facility] FILM LIBRARY ORD ERABLES documented in this encounter Visit Diagnoses Not on filedocumented in this encounter Care Teams Sole Painter Relationship Specialty Start Date End Date Mary Alice Cage APRN PCP - General 10/12/11 11/12/18 documented as of this encounter
--- OUTSIDE RECORDS SUMMARY | 2024-06-15 10:35 | XMS_ITS | Encounter Summary ---
[place] [address] Care Team Providers Care Sumatra Opener Name Role Phone Mary Alice Cage APRN Primary Care Provider [phone] Encounter Details Date Type Department Care Team (Late st Contact Info) Description 08/17/2013 External [place] [address] Provider, Scanning Social History Tobacco Use Types [...] on filedocumented in this encounter Care Teams Sumatra Opener Relationship Specialty Start Date End Date Mary Alice Cage APRN PCP - General 10/12/11 11/12/18 documented as of this encounter
--- OUTSIDE RECORDS SUMMARY | 2024-06-15 10:35 | XMS_ITS | Encounter Summary ---
Author Organization [facility] [address] Care Team Providers Care Oil Deliverer Name Role Phone [place] Alice davis Rajendra ROY Primary Care Provider Reason for Visit * Reason Comments Symptom, Headache Cervicalgia Encounter Details Date Type Department Care Team (Latest Contact Info) Description 11/27/2012 7:00 AM EDT Procedure visit [place] [address] Hiro Cervantes MD [address] [place] [address] Hiro Cervantes MD [facility] [place] [address] Cervicalgia (Primary Dx) Discharge Disposition: Home Social [...] 2. 3. Patient states they have a cart driver to transport after procedure? Yes 4. [...] PRN. Dominic Albarado MD Pain Medicine Fellow, [facility] I was the attending physician supervising the [...] PRN. Dominic Albarado MD Pain Medicine Fellow, [facility] I was the attending physician supervising the [...] PRN. Dominic Albarado MD Pain Medicine Fellow, [facility] I was the attending physician supervising the resident in the above careand I was present with the resident for the entire procedure. HIRO SCOTT MD Hiro Cervantes MD NEUROLOGY ORDERABLES documented in this encounter Visit Diagnoses Diagnosis Cervicalgia- Primary documented in this encounter Care Teams Oil Deliverer Relationship Specialty Start Date End Date Mary Alice Cage APRN PCP - General 10/12/11 11/12/18 documented as of this encounter
--- OUTSIDE RECORDS SUMMARY | 2024-06-15 10:35 | XMS_ITS | Encounter Summary ---
Author Organization [facility] [address] Care Team Providers Care Farm Assistant Name Role Phone Mary Alice Cage APRN Primary Care Provider Reason for Visit * Reason Onset Date Comments Medication Refill 12/05/2012 Encounter Details Date Type Department Care Team (Late st Contact Info) Description 12/05/2012 Refill [place] [address] Malia Vidal END PACKER [facility] DR [place] [address] Social History Tobacco Use Types Packs/Day Years [...] filedocumented in this encounter Care Teams Farm Assistant Relationship Specialty Start Date End Date Mary Alice Cage APRN PCP - General 10/12/11 11/12/18 documented as of this encounter
--- OUTSIDE RECORDS SUMMARY | 2024-06-15 10:35 | XMS_ITS | Encounter Summary ---
Author Organization [facility] Address [facility] [place] [address] Care Team Providers Care Dedenter Name Role Phone Mary Alice Cage APRN Primary Care Provider [phone] Encounter Details Date Type Department Care Team (Latest Contact Info) Description 07/07/2013 9:18 AM EST - 07/07/2013 11:59 PM [facility] Hospital Encounter XRay at [address] [place] [address] Herniated nucleus pulposus, C6-7 Right, with degenderative [...] myelopathy documented in this encounter Care Teams Dedenter Relationship Specialty Start Date End Date Mary Alice Cage APRN PCP - General 10/12/11 11/12/18 documented as of this encounter
--- OUTSIDE RECORDS SUMMARY | 2024-06-15 10:35 | XMS_ITS | Encounter Summary ---
Author Organization [facility] [address] Care Team Providers Care Stacker Driver Name Role Phone Mary Alice Cage MANUELA Primary Care Provider [phone] Encounter Details Date Type Department Care Team (Latest Contact Info) Description 12/09/2012 8:15 AM EDT [place] [address] Marshall Montgomery MD [facility] [place] [address] Cervical radiculopathy (Primary Dx) Discharge Disposition: Home [...] nos documented in this encounter Care Teams Stacker Driver Relationship Specialty Start Date End Date Walton, Mary Alice G, BOND TRADER PCP - General 10/12/11 11/12/18 documented as of this encounter
--- OUTSIDE RECORDS SUMMARY | 2024-06-15 10:35 | XMS_ITS | Encounter Summary ---
[place] [address] Care Team Providers Care Senior Report Developer Name Role Phone Mary Alice Cage MANUELA Primary Care Provider [phone] Reason for Visit * Reason Comments Back Pain Right Arm Pain Encounter Details Date Type Department Care Team (Latest Contact Info) Description 07/13/2013 9:40 AM EST Office [place] [address] Rios Gonzalez MD [facility] [place] [address] Herniated nucleus pulposus, C6-7 Right, with degenderative [...] combined with uncovertebral hypertrophy to cause bilateral kjsoqqlj-tu-yvnkgr foraminal narrowing. At C6-C7, the large disk [...] Urine Dipstick Clear Clear CERNER MILLENNIUM Specific [place] Urine Automated 1.007 1.002 - 1.030 CERNER [...] ? Ordered By: RIOS GONZALEZ ? MR#: [id number] ?LOC: ??4V ? /Sex: ??1960 (52 years), [...] Gonzalez MD MICROBIOLOGY - GENER AL ORDERABLES [facility] * Prothrombin Time (08/18/2013 10:20 AM EST) Prothrombin Time 12.2 12.0 - 15.0 sec [facility] Comment: [facility] Transfusion Committee Guidelines: INR less than 2.0, [...] Lab Rios Gonzalez MD HEMATOLOGY ORDERABLE S [facility] * Basic Metabolic Panel (non-fasting) (08/18/2013 10:20 AM EST) Glucose 110 60 - 199 mg/dL CERNER MILLENNIUM Comment:Diabetes: >=200 mg/d L plus symptoms Blood Urea Nitrogen 11 8 - 18 mg/dL CERNER MILLENNIUM Creatinine 0.94 0.70 - 1.20 mg/dL CERNER MILLENNIUM Comment: Please note that the pediatric reference intervals supplied above were not validated at [facility] [place] [place]. Results from pediatric patients should be interpreted [...] Gonzalez MD CHEMISTRY ORDERABLES Performing Organization Address [facility] Co de Phone Number VIKTOR TODD [...] MD HEMATOLOGY ORDERABLE S Performing Organization Address [facility] Co de Phone Number VIKTOR TODD documented in this encounter Visit Diagnoses Diagnosis Herniated nucleus pulposus, C6-7 Right, with degenderative changes- Primary Displacement of cervical intervertebral disc without myelopathy Herniated nucleus pulposus, C6-7 Right, with degenderative changes Displacement of cervical intervertebral disc without myelopathy documented in this encounter Care Teams Senior Report Developer Relationship Specialty Start Date End Date Mary Alice Cage APRN PCP - General 10/12/11 11/12/18 documented as of this encounter
--- OUTSIDE RECORDS SUMMARY | 2024-06-15 10:35 | XMS_ITS | Encounter Summary ---
[place] [address] Care Team Providers Care Cyber Defense Incident Responder Name Role Phone Mary Alice Domingo MANUELA Primary Care Provider [phone] Encounter Details Date Type Department Care Team (Late st Contact Info) Description 09/08/2013 10:58 AM EST - 09/08/2013 2:26 PM EST [place] [id number] Rios Gonzalez MD [facility] [address] SPINE [place] [id number] ARTHRODESIS, ANT INTERBODY,DECOMPRESSIO N; CERVICAL BELOW C2 [...] them. 3. You should also take an bctv-fme-amfzwke stool softener, such as Colace or Senna, [...] your pain medication, please contact the [facility] Prescription Lineat [phone]. PRESCRIPTION RENEWAL REQUESTS CAN TAKE UP TO 3 DAYS TO FILL. YOU WILL BE REQUIRED TO INTERNAL COMBUSTION ENGINE ASSEMBLER YOUR NARCOTIC REFILL PRESCRIPTION IN PERSON AT [facility] OR IT CAN BE MAILED TO YOUR PHARMACY. [place] Collar Instructions: 1. You are being [...] fallen off already. PLEASE CALL US AT [phone] TO SPEAK WITH A SPINE CENTER NURSE [...] Important Phone Numbers: Clinical issues, nurse questions: [phone] Medication renewals: [phone] Appointments for Marielena Gonzalez: [phone] Follow Up Appointments: You will have follow-up appointments at [facility] as indicated in the ???Future Appointments and [...] been followed by nursing and the ortho MATTRESS PACKER Mahnaz Fischer. The patients last void was 400cc with a PVR of 184cc. The ortho MATTRESS PACKER is aware of. * Isidoro Quezada - [...] disabled amy, not employed, and lives in [place], [place]. Pt denies the need for VNAservices and feels she and her can manage. Pt requests a Jr FWW and has not preference so I have ordered from [facility] who will deliver to her room [...] General: NAD, awake/alert, responds to questions Neck: [place] J collar in place, left on with [...] Julita CASON. Patient ready for transfer to [facility] for xray. documented in this encounter [...] CHOLANGIOGRAM performed by Abel Carlton MD at [facility] MAIN OR ??? Arthrodesis, ant interbody,decompression; cervical below c2 09/08/2013 ARTHRODESIS, ANT INTERBODY,DECOMPRESSION; CERVICAL BELOW C2 performed by Rios Gonzalez MD at [facility] MAIN OR ??? Arthrd ant interdy cervcl belw c2 ea addl ntrspc 09/08/2013 @ARTHRODESIS ANT INTERBDY CERVCL BELOW C2 EA ADDL INTRSPACE performed by Rios Gonzalez MD at [facility] MAIN OR ??? Anterior instrumentation 2-3 vertebral segments 09/08/2013 @ANT. SPINAL INSTRUMENTATION, 2-3 VERTEBRA, SEGMENTED performed by Rios Gonzalez MD at [facility] [place] ??? Allograft for spine surgery only structural 09/08/2013 ALLOGRAFT FOR SPINE SURGERY ONLY; STRUCTUAL performed by Rios Gonzalez MD at [facility] MAIN OR Social History: Patient lives with [...] assisting as necessary, i did provide a program coordinator per her request. ?? Reviewed cervical collar [...] training Total timed interventions: 10 minutes Pager: [phone] BRENDON KINCAID OT 09/09/2013 Occupational Therapy Rehabilitation [...] CHOLANGIOGRAM performed by Abel Carlton MD at [facility] MAIN OR ??? Arthrodesis, ant interbody,decompression; cervical below c2 09/08/2013 ARTHRODESIS, ANT INTERBODY,DECOMPRESSION; CERVICAL BELOW C2 performed by Rios Gonzalez MD at [facility] MAIN OR ??? Arthrd ant interdy cervcl belw c2 ea addl ntrspc 09/08/2013 @ARTHRODESIS ANT INTERBDY CERVCL BELOW C2 EA ADDL INTRSPACE performed by Rios Gonzalez MD at [facility] MAIN OR ??? Anterior instrumentation 2-3 vertebral segments 09/08/2013 @ANT. SPINAL INSTRUMENTATION, 2-3 VERTEBRA, SEGMENTED performed by Rios Gonzalez MD at [facility] [place] ??? Allograft for spine surgery only structural 09/08/2013 ALLOGRAFT FOR SPINE SURGERY ONLY; STRUCTUAL performed by Rios Gonzalez MD at [facility] MAIN OR Social History: Patient is disabled and lives with her significant other in a mobile home in [place], [place]. 10 steps to enter with kait [...] treatment: 0 minutes RE LAY, PT Pager: [phone] * Plan of Care - Keren Hammond [...] The patient was instructed to wear a [place] J at all times. These parameters were reinforced by physical therapy. The patient???s TOOL INSPECTOR was discontinued on POD#1 and was transitioned [...] them. 3. You should also take an ickk-dus-ixbjpqz stool softener, such as Colace or Senna, [...] of your pain medication, please contact the [facility] Prescription Lineat [phone]. PRESCRIPTION RENEWAL REQUESTS CAN TAKE UP TO 3 DAYS TO FILL. YOU WILL BE REQUIRED TO INTERNAL COMBUSTION ENGINE ASSEMBLER YOUR NARCOTIC REFILL PRESCRIPTION IN PERSON AT [facility] OR IT CAN BE MAILED TO YOUR PHARMACY. [place] Collar Instructions: 1. You are being [...] pressing against the skin, please call the [facility] Nursing Line at the number below. [...] fallen off already. PLEASE CALL US AT [phone] TO SPEAK WITH A SPINE CENTER NURSE [...] Important Phone Numbers: Clinical issues, nurse questions: [phone] Medication renewals: [phone] Appointments for Marielena Gonzalez: [phone] Follow Up Appointments: You will have follow-up appointments at [facility] as indicated in the ???Future Appointments and [...] 11:20 AM Rios Gonzalez MD Leb Spine [facility] 11/24/2013 1:00 PM Justin Starkey MD [facility] If you have questions or concerns: Saturday through Saturday, 8 AM- 5 PM, please call Dr. Gonzalez's office at . If it is after 5 PM or on the weekend, please call and ask for orthopedic resident on-call to be paged. Future Appointments and Orders Future Appointments: Provider: Department: Dept Phone: Center: 10/05/2013 11:20 AM Rios Gonzalez MD Spine Center [phone] [facility] 11/24/2013 1:00 PM Justin Starkey MD Gastroenterology [phone] [facility] Primary Care Provider: MARY ALICE DOMINGO APRN [phone] Inpatient Provider Contact Information: If you have questions or concerns: Saturday through Saturday, 8 AM- 5 PM, please call Dr. Gonzalez's office at . If it is after 5 PM or on the weekend, please call and ask for orthopedic resident on-call to be paged. Electronically Signed by: KIARA GAMEZ 09/09/2013 * Op Note - Rios Gonzalez MD - 09/08/2013 2:55 PM EST [facility] Operative Note Patient Name: Poppy Mclaughlin : [id number] MR#: [id number] Case Date: 09/08/2013 Surgeon: Surgeon(s) and Role: [...] Operative Note Patient Name: Poppy Mclaughlin : [id number] MR#: [id number] Case Date: 09/08/2013 Surgeon: Surgeon(s) and Role: * Rios Gonzalez MD - Primary * Vito Kumari MD - Resident Preoperative diagnosis: Cervical radiculopathy Postoperative diagnosis: Cervical radiculopathy Procedure(s): C5-7 ACDF (13280, 90444, 56568, 31425) Anesthesia: General Findings: There was bilateral foraminal [...] intervals supplied above were not validated at [facility]. Results from pediatric patients should [...] (Given - Provider: Keren Hammond RN) multivitamin Bjjt-Jn-MB-Min (THERAPEUTIC-M) 27-0.4 mg tablet 1 tablet (CANCELED) [...] Routine documented in this encounter Care Teams Cyber Defense Incident Responder Relationship Specialty Start Date End Date Mary Alice Domingo APRN PCP - General 10/12/11 11/12/18 documented as of this encounter
--- OUTSIDE RECORDS SUMMARY | 2024-06-15 10:35 | XMS_ITS | Encounter Summary ---
[place] [address] Care Team Providers Care Online Merchant Name Role Phone Mary Alice Cage MANUELA Primary Care Provider [phone] Reason for Visit * Reason Comments Arm Pain RIGHT side Back Pain Right Shoulder Pain Encounter Details Date Type Department Care Team (Latest Contact Info) Description 07/07/2013 8:20 AM EST Office [place] [address] Rios Acuna MD [facility] [place] [address] Herniated nucleus pulposus, C6-7 Right, with degenderative [...] myelopathy documented in this encounter Care Teams Online Merchant Relationship Specialty Start Date End Date Mary Alice Cage APRN PCP - General 10/12/11 11/12/18 documented as of this encounter
--- OUTSIDE RECORDS SUMMARY | 2024-06-15 10:35 | XMS_ITS | Encounter Summary ---
Author Organization [facility] [place] [address] Care Team Providers Care Fireworks Inspector Name Role Phone Mary Alice Cage MANUELA Primary Care Provider [phone] Encounter Details Date Type Department Care Team (Latest Contact Info) Description 07/11/2013 11:11 AM EST - 07/11/2013 11:59 PM [facility] Hospital [place] [address] CLINIC, Rios Morris MD [facility] [place] [address] Herniated nucleus pulposus, C6-7 Right, with degenderative [...] myelopathy documented in this encounter Care Teams Fireworks Inspector Relationship Specialty Start Date End Date Mary Alice Cage APRN PCP - General 10/12/11 11/12/18 documented as of this encounter
--- OUTSIDE RECORDS SUMMARY | 2024-06-15 10:35 | XMS_ITS | Encounter Summary ---
Author Organization [facility] [place] [address] Care Team Providers Care Global Marketing Operations Manager Name Role Phone [place]'SMary Alice davis MANUELA Primary Care Provider [phone] Reason for Visit * Reason Comments Follow-up S/P LAP NOAH Encounter Details Date Type Department Care Team (Late st Contact Info) Description 12/04/2012 1:30 PM EDT Office [place] [address] Jillian Wiley APRN [facility] [place] [address] Surgery follow-up (Primary Dx) Discharge Disposition: Home [...] surgery documented in this encounter Care Teams Global Marketing Operations Manager Relationship Specialty Start Date End Date Mary Alice Cage APRN PCP - General 10/12/11 11/12/18 documented as of this encounter
--- OUTSIDE RECORDS SUMMARY | 2024-06-15 10:35 | XMS_ITS | Encounter Summary ---
Author Organization [facility] [address] Care Team Providers Care Sas Analyst Name Role Phone Mary Alice Cage APRN Primary Care Provider [phone] Reason for Visit * Reason Onset Date Comments Medication Refill 01/28/2013 Encounter Details Date Type Department Care Team (Late st Contact Info) Description 01/28/2013 Refill [place] [address] Malia Vidal [facility] [address] [place] [address] Social History Tobacco Use Types Packs/Day Years [...] on filedocumented in this encounter Care Teams Sas Analyst Relationship Specialty Start Date End Date Mary Alice Cage APRN PCP - General 10/12/11 11/12/18 documented as of this encounter
--- OUTSIDE RECORDS SUMMARY | 2024-06-15 10:35 | XMS_ITS | Encounter Summary ---
Author Organization [facility] [place] [address] Care Team Providers Care Outboard Technician Name Role Phone Mary Alice Cage APRN Primary Care Provider [phone] Encounter Details Date Type Department Care Team (Late st Contact Info) Description 12/10/2012 External [place] [address] Marshall Montgomery MD [facility] [place] [address] Social History Tobacco Use Types Packs/Day Years [...] on filedocumented in this encounter Care Teams Outboard Technician Relationship Specialty Start Date End Date Mary Alice Cage APRN PCP - General 10/12/11 11/12/18 documented as of this encounter
--- OUTSIDE RECORDS SUMMARY | 2024-06-15 10:35 | XMS_ITS | Encounter Summary ---
[place] [address] Care Team Providers Care Mobile Electronics Installer Name Role Phone SummersMary Alice davis Rajendra ROY Primary Care Provider [phone] Encounter Details Date Type Department Care Team (Late st Contact Info) Description 08/18/2013 10:00 AM EST Clinical [place] [address] Social History Tobacco Use Types Packs/Day Years [...] on filedocumented in this encounter Care Teams Mobile Electronics Installer Relationship Specialty Start Date End Date Mary Alice Cage APRN PCP - General 10/12/11 11/12/18 documented as of this encounter
--- OUTSIDE RECORDS SUMMARY | 2024-06-15 10:35 | XMS_ITS | Encounter Summary ---
[place] [address] Care Team Providers Care Shoe Planner Name Role Phone Mary Alice Domingo MANUELA Primary Care Provider [phone] Encounter Details Date Type Department Care Team (Latest Contact Info) Description 09/08/2013 9:14 AM EST - 09/09/2013 5:00 PM [facility] Hospital Encounter [address] [place] [address] Rios Gonzalez MD [facility] [place] [address] Herniated nucleus pulposus, C6-7; Rhinitis Discharge Disposition: [...] them. 3. You should also take an tmzo-fmr-hutnhjo stool softener, such as Colace or Senna, [...] of your pain medication, please contact the [facility] Prescription Lineat [phone]. PRESCRIPTION RENEWAL REQUESTS CAN TAKE UP TO 3 DAYS TO FILL. YOU WILL BE REQUIRED TO RETAIL SERVICE LEAD MERCHANDISER YOUR NARCOTIC REFILL PRESCRIPTION IN PERSON AT [facility] OR IT CAN BE MAILED TO YOUR PHARMACY. Clarendon J Collar Instructions: 1. You are being [...] against the skin, please call the Spine [facility]oy Nursing Line at the number below. 5. [...] fallen off already. PLEASE CALL US AT [phone] TO SPEAK WITH A SPINE CENTER NURSE [...] Important Phone Numbers: Clinical issues, nurse questions: [phone] Medication renewals: [phone] Appointments for Marielena Gonzalez: [phone] Follow Up Appointments: You will have follow-up appointments at [facility] as indicated in the ???Future Appointments and [...] 1:00 PM Justin Starkey MD [facility] If you have questions or concerns: [...] been followed by nursing and the ortho NETWORK LIAISON Mahnaz Fischer. The patients last void was 400cc with a PVR of 184cc. The ortho NETWORK LIAISON is aware of. * Isidoro Quezada - [...] disabled amy, not employed, and lives in [place], [place]. Pt denies the need for VNAservices and feels she and her can manage. Pt requests a Jr FWW and has not preference so I have ordered from [facility] who will deliver to her [...] General: NAD, awake/alert, responds to questions Neck: Clarendon J collar in place, left on with [...] Julita CASON. Patient ready for transfer to [facility] for xray. documented in this encounter H&P [...] by Abel Carlton MD at [facility] MAIN OR ??? Arthrodesis, ant interbody,decompression; cervical below c2 09/08/2013 ARTHRODESIS, ANT INTERBODY,DECOMPRESSION; CERVICAL BELOW C2 performed by Rios Gonzalez MD at [facility] MAIN OR ??? Arthrd ant interdy cervcl belw c2 ea addl ntrspc 09/08/2013 @ARTHRODESIS ANT INTERBDY CERVCL BELOW C2 EA ADDL INTRSPACE performed by Rios Gonzalez MD at [facility] MAIN OR ??? Anterior instrumentation 2-3 vertebral segments 09/08/2013 @ANT. SPINAL INSTRUMENTATION, 2-3 VERTEBRA, SEGMENTED performed by Rios Gonzalez MD at [facility] [place] ??? Allograft for spine surgery only structural 09/08/2013 ALLOGRAFT FOR SPINE SURGERY ONLY; STRUCTUAL performed by Rios Gonzalez MD at [facility] MAIN OR Social History: Patient [...] assisting as necessary, i did provide a paintless dent repair technician per her request. ?? Reviewed cervical collar [...] training Total timed interventions: 10 minutes Pager: [phone] BRENDON KINCAID OT 09/09/2013 Occupational Therapy Rehabilitation [...] by Abel Carlton MD at [facility] MAIN OR ??? Arthrodesis, ant interbody,decompression; cervical below c2 09/08/2013 ARTHRODESIS, ANT INTERBODY,DECOMPRESSION; CERVICAL BELOW C2 performed by Rios Gonzalez MD at [facility] MAIN OR ??? Arthrd ant interdy cervcl belw c2 ea addl ntrspc 09/08/2013 @ARTHRODESIS ANT INTERBDY CERVCL BELOW C2 EA ADDL INTRSPACE performed by Rios Gonzalez MD at [facility] MAIN OR ??? Anterior instrumentation 2-3 vertebral segments 09/08/2013 @ANT. SPINAL INSTRUMENTATION, 2-3 VERTEBRA, SEGMENTED performed by Rios Gonzalez MD at [facility] [place] ??? Allograft for spine surgery only structural 09/08/2013 ALLOGRAFT FOR SPINE SURGERY ONLY; STRUCTUAL performed by Rios Gonzalez MD at [facility] MAIN OR Social History: Patient is disabled and lives with her significant other in a mobile home in [place], [place]. 10 steps to enter with kait [...] treatment: 0 minutes RE LAY PT Pager: [phone] * Plan of Care - Keren Hammond [...] The patient was instructed to wear a Clarendon J at all times. These parameters were reinforced by physical therapy. The patient???s MINERAL RESOURCES INSPECTOR was discontinued on POD#1 and was [...] them. 3. You should also take an kpru-jgk-hmfvwrm stool softener, such as Colace or Senna, [...] of your pain medication, please contact the [facility] Prescription Lineat [phone]. PRESCRIPTION RENEWAL REQUESTS CAN TAKE UP TO 3 DAYS TO FILL. YOU WILL BE REQUIRED TO RETAIL SERVICE LEAD MERCHANDISER YOUR NARCOTIC REFILL PRESCRIPTION IN PERSON AT [facility] OR IT CAN BE MAILED TO YOUR PHARMACY. Clarendon J Collar Instructions: 1. You are being [...] pressing against the skin, please call the [facility] Nursing Line at the [...] fallen off already. PLEASE CALL US AT [phone] TO SPEAK WITH A SPINE CENTER NURSE [...] Important Phone Numbers: Clinical issues, nurse questions: [phone] Medication renewals: [phone] Appointments for Marielena Gonzalez: [phone] Follow Up Appointments: You will have follow-up appointments at [facility] as indicated in the ???Future Appointments and [...] 11:20 AM Rios Gonzalez MD Leb Spine [facility] 11/24/2013 1:00 PM Justin Starkey MD [facility] Gastro [facility] If you have questions or concerns: Saturday through Saturday, 8 AM- 5 PM, please call Dr. Gonzalez's office at . If it is after 5 PM or on the weekend, please call and ask for orthopedic resident on-call to be paged. Future Appointments and Orders Future Appointments: Provider: Department: Dept Phone: Center: 10/05/2013 11:20 AM Rios Gonzalez MD Spine Center [phone] [facility] 11/24/2013 1:00 PM Justin Starkey MD Gastroenterology [phone] [facility] Primary Care Provider: MARY ALICE DOMINGO APRN [phone] Inpatient Provider Contact Information: If you have questions or concerns: Saturday through Saturday, 8 AM- 5 PM, please call Dr. Gonzalez's office at . If it is after 5 PM or on the weekend, please call and ask for orthopedic resident on-call to be paged. Electronically Signed by: KIARA GAMEZ 09/09/2013 * Op Note - Rios Gonzalez MD - 09/08/2013 2:55 PM EST [facility] Operative Note Patient Name: Poppy Mclaughlin : [id number] MR#: [id number] Case Date: 09/08/2013 Surgeon: Surgeon(s) and Role: [...] Operative Note Patient Name: Poppy Mclaughlin : [id number] MR#: [id number] Case Date: 09/08/2013 Surgeon: Surgeon(s) and Role: * Rios Gonzalez MD - Primary * Vito Kumari MD - Resident Preoperative diagnosis: Cervical radiculopathy Postoperative diagnosis: Cervical radiculopathy Procedure(s): C5-7 ACDF (43981, 23752, 24031, 07953) Anesthesia: General Findings: There was bilateral foraminal [...] intervals supplied above were not validated at [facility]. Results from pediatric patients should be interpreted [...] bone grafts appear well positioned. Procedure Note Marclel Sanders MD - 09/08/2013 Examination CERVICAL SPINE [...] 09/08/2013 10:19 PM EST 0.5 mg multivitamin Erez-Eq-UF-Min (THERAPEUTIC-M) 27-0.4 mg tablet 1 tablet 1 [...] (Given - Provider: Keren Hammond RN) multivitamin Nsvj-Ev-XM-Min (THERAPEUTIC-M) 27-0.4 mg tablet 1 tablet (CANCELED) [...] Arenas)1420 (Anesthesia Volume Adjustment - Provider: Herson rAenas) lactated ringers infusion 1,000 mL (CANCELED) 1,000 [...] Routine documented in this encounter Care Teams Shoe Planner Relationship Specialty Start Date End Date Mary Alice Domingo APRN PCP - General 10/12/11 11/12/18 documented as of this encounter
--- OUTSIDE RECORDS SUMMARY | 2024-06-15 10:35 | XMS_ITS | Encounter Summary ---
Author Organization [facility] [place] [address] Care Team Providers Care Economics Analyst Name Role Phone Mary Alice Domingo MANUELA Primary Care Provider [phone] Encounter Details Date Type Department Care Team (Late st Contact Info) Description 03/10/2013 2:30 PM EDT Follow-[place] [address] Justin Starkey MD [facility] [place] [address] Gas (Primary Dx); Bloating; Diarrhea Discharge Disposition: [...] 52 yrs, 1960 PCP: MARY ALICE DOMINGO HUMAN RESOURCES DEPARTMENT SUPERVISOR: NONE BASKET PATCHER: Justin Starkey, PhD, MD ([id number]) REFERRING PROVIDER(S) REASON FOR CONSULTATION I was asked to see her specifically for problems with recurrent gas and bloating. TIME SPENT WITH PATIENT A one-hour appointment was scheduled so that we could review her lengthy and complicated history; unfortunately, she showed up 30 minutes late. Total Minutes: 25 reviewing records at the time of our visit Minutes of Tujz-ob-Nwfv Counseling: Greater than 30 minutes were spent in direct, grey-yg-onow counseling. HISTORY OF PRESENT ILLNESS This is a 52-year-old woman sent for formal evaluation and a third opinion in gastroenterology. Thepatient was seen for quite some time by Dr. Keller, and has been actively followed by Malia Vidal who works in our GI division. In brief, the patient has had significant problems with gas and bloating since an emergency hernia repair at [facility] in May 2011. She received antibiotics during that procedure and afterwards. Since then, she has had problems with gas and bloating. She has undergone an exhaustive workup. This is all outlined in previous notes by Ms. Vidal. In brief, a colonoscopy at [facility] was normal; upper endoscopy at [facility] was normal; she had a CT scan at [facility] which was normal; an abdominal ultrasound here [...] history, family history. Justin Starkey, PhD, MD ux research associate, [employer] Section of Gastroenterology and [place]atology [place] [address] V: [phone] F: [phone] MICKY/mian EC/CC: PCP Malia Vidal APRN documented in this encounter Plan of Treatment Not on file documented as of this encounter Visit Diagnoses Diagnosis Gas- Primary Flatulence, eructation, and gas pain Bloating Flatulence, eructation, and gas pain Diarrhea documented in this encounter Care Teams Economics Analyst Relationship Specialty Start Date End Date Mary Alice Domingo APRN PCP - General 10/12/11 11/12/18 documented as of this encounter
--- OUTSIDE RECORDS SUMMARY | 2024-06-15 10:35 | XMS_ITS | Encounter Summary ---
Author Organization [facility] [place] [address] Care Team Providers Care Farm Helper Name Role Phone Mary Alice Cage MANUELA Primary Care Provider [phone] Encounter Details Date Type Department Care Team (Latest Contact Info) Description 11/04/2012 11:38 AM EDT - 11/04/2012 5:20 PM EDT Hospital Encounter [place] [id number] Abel Rhoades MD [facility] [place] [address] Discharge Disposition: Home Social History Tobacco Use [...] 101.3 F. The number for questions is [phone] before 5 PM weekdays and [phone] after 5 PM and weekends. Pain Medication: No driving for 8 hours after any dose of Percocet. You may use ibuprofen (motrin, advil) in addition if your pain is not totally controlled. Follow-up: A follow-up appointment will be scheduled with Dr. Rhoades in 4-6 weeks. The appointment will be mailed to you. Please call [phone] (clinic number for appointments) to confirm the [...] Rhoades MD - 11/04/2012 3:04 PM EDT [facility] Operative Note Patient Name: Poppy Pino : [id number] MR#: [id number] Case Date: 11/04/2012 Surgeon: Surgeon(s) and Role: [...] 10-mm port site was closed with interrupted gksccp-cz-zsnsk 0-Vicryl suture followed by running subcuticular 4-0 [...] 2:55 PM EDT) Surgical Pathology Report ? [facility] ? Provider: ?? ABEL RHOADES ? Pt. Name: ?? POPPY PINO ? Acc #: ?[id number] ?Pt. ? Col Date: ?? 11/04/2012 ? [...] PATHOLOGY/CYTOLOGY O RODDY Performing Organization Address [facility] Co de Phone Number VIKTOR TODD * Specimen to Pathology (surgical or derm) (11/04/2012 2:45 PM EDT) AP Specimen 11/04/2012 2:45 PM EDT 11/04/2012 2:45 PM EDT Narrative VIKTOR PATELCINTHYAASHLEY - 11/04/2012 2:45 PM EDT Specimen requisition ordered. ??Separate Pathology report to follow Abel Rhoades MD PATHOLOGY/CYTOLOGY O RODDY Performing Organization Address [facility] Co de Phone Number VIKTOR [...] Routine documented in this encounter Care Teams Farm Helper Relationship Specialty Start Date End Date Mary Alice Cage APRN PCP - General 10/12/11 11/12/18 documented as of this encounter
--- OUTSIDE RECORDS SUMMARY | 2024-06-15 10:35 | XMS_ITS | Encounter Summary ---
[place] [address] Care Team Providers Care Forest Supervisor Name Role Phone Mary Alice Cage MANUELA Primary Care Provider [phone] Reason for Visit * Reason Comments Neck And Arm Pain right Encounter Details Date Type Department Care Team (Latest Contact Info) Description 12/18/2012 11:00 AM EDT Office [place] [address] Rios Acuna MD [facility] [place] [address] Herniated nucleus pulposus, C6-7 Right, with degenderative [...] light cigarettes, but she is still smoking dky-wzb-r-half packs per day. I told the patient [...] myelopathy documented in this encounter Care Teams Forest Supervisor Relationship Specialty Start Date End Date Mary Alice Cage APRN PCP - General 10/12/11 11/12/18 documented as of this encounter
--- OUTSIDE RECORDS SUMMARY | 2024-06-15 10:35 | XMS_ITS | Encounter Summary ---
Author Organization [facility] [address] Care Team Providers Care Master Ship Name Role Phone BatesMary Alice davis Rajendra ROY Primary Care Provider [phone] Reason for Visit * Reason Onset Date Comments Medication Refill 12/08/2012 Encounter Details Date Type Department Care Team (Late st Contact Info) Description 12/08/2012 [place] [address] Malia Vidal APRN [facility] DR GASTROENTEROLOGY [place] [address] Social History Tobacco Use Types Packs/Day Years [...] (LOMOTIL) 2.5-0.025 mg per tablet [TRACIA [place]'YAIMA, HOSPICE EDUCATOR] dicyclomine (BENTYL) 10 mg capsule [TRACIA [place]'YAIMA, HOSPICE EDUCATOR] Preferred pharmacy: [facility] [address] [place] [address] Comment: documented in this encounter Plan of Treatment Not on file documented as of this encounter Visit Diagnoses Not on filedocumented in this encounter Care Teams Master Ship Relationship Specialty Start Date End Date Mary Alice Cage APRN PCP - General 10/12/11 11/12/18 documented as of this encounter
--- OUTSIDE RECORDS SUMMARY | 2024-06-15 10:35 | XMS_ITS | Encounter Summary ---
Author Organization [facility] [address] Care Team Providers Care Glass Etcher Name Role Phone Mary Alice Cage MANUELA Primary Care Provider [phone] Encounter Details Date Type Department Care Team (Late st Contact Info) Description 09/08/2013 11:02 AM EST Anesthesia Event [place] [address] Samra Zhong MD [facility] [address] [place] [address] Anesthesia Record Procedure Summary Procedure Name Responsible [...] Adequate pain control, minimal nausea, no recall. Foam Rubber Mixer strength intact, hand paresthesias improved from baseline. [...] CHOLANGIOGRAM performed by Abel Carlton MD at [facility] MAIN OR History Substance Use [...] side of mouth. Remaining teeth poor condition [facility] [place] Assessment: Patient is wearing No contact(s). IV [...] problems with Propofol during lap CC[facility] at [facility] in 2012. HTN GERD - moderately well [...] with patient whom consented to blood products. [facility] [place]. Assessment: documented in this encounter Plan of [...] mg documented in this encounter Care Teams Glass Etcher Relationship Specialty Start Date End Date Mary Alice Cage APRN PCP - General 10/12/11 11/12/18 documented as of this encounter
--- OUTSIDE RECORDS SUMMARY | 2024-06-15 10:35 | XMS_ITS | Encounter Summary ---
[place] [address] Care Team Providers Care Shadowgraph Scale Operator Name Role Phone Mary Alice Cage APRN Primary Care Provider Encounter Details Date Type Department Care Team (Late st Contact Info) Description 07/08/2013 Telephone [place] [address] Surendra Amezcua Social History Tobacco Use Types [...] on filedocumented in this encounter Care Teams Shadowgraph Scale Operator Relationship Specialty Start Date End Date Mary Alice Cage APRN PCP - General 10/12/11 11/12/18 documented as of this encounter
--- OUTSIDE RECORDS SUMMARY | 2024-06-15 10:35 | XMS_ITS | Encounter Summary ---
Author Organization [facility] [place] [address] Care Team Providers Care Architectural Engineer Name Role Phone EctorMary Alice davis MANUELA Primary Care Provider [phone] Encounter Details Date Type Department Care Team (Late st Contact Info) Description 11/27/2012 Orders [place] [address] Catrachita Cervantes MD [facility] [place] [address] Social History Tobacco Use Types Packs/Day Years [...] AM EDT) 11/27/2012 7:30 AM EDT Narrative [facility] - 04/01/2014 6:09 PM EDT This is a non-reportable exam. Procedure Note Sachin Alvarez - 04/01/2014 This is a non-reportable exam. Catrachita Cervantes MD [facility] FILM LIBRARY ORD ERABLES [facility] [address] [place] [address] documented in this encounter Visit Diagnoses Not on filedocumented in this encounter Care Teams Architectural Engineer Relationship Specialty Start Date End Date Mary Alice Cage APRN PCP - General 10/12/11 11/12/18 documented as of this encounter
--- OUTSIDE RECORDS SUMMARY | 2024-06-15 10:35 | XMS_ITS | Encounter Summary ---
Author Organization [facility] [place] [address] Care Team Providers Care Chucking Lathe Operator Name Role Phone Mary Alice Cage MANUELA Primary Care Provider [phone] Encounter Details Date Type Department Care Team (Latest Contact Info) Description 08/18/2013 10:11 AM [facility] - 08/18/2013 11:59 PM [facility] Hospital Encounter [place] [address] [facility] [place] [address] Herniated nucleus pulposus, C6-7 Right, with degenderative [...] changes TYPE AND SCREEN, SDP (FUTURE SURGERY, [facility] SAME DAY PROGRAM ONLY) Routine 08/18/2013 10:20 [...] By: LISA RIOS Del Cid ? MR#: [id number] ?LOC: ??4V ? /Sex: ??1960 (52 years), [...] Acuna MD MICROBIOLOGY - GENER AL ORDERABLES [facility] AMANDAENNFORM[facility]LY [facility] * Urinalysis with microscopic (08/18/2013 [...] Urine Dipstick Clear Clear CERNER MILLENNIUM Specific [place] Urine Automated 1.007 1.002 - 1.030 CERNER [...] Gran % 0.10 0.00 - 0.66 % [facility] MARYVALE MILLENNIUM Comment: Immature granulocytes(IG's)percentage and absolute count will include metamyelocytes, myelocytes, and promyelocytes. Blood smears from CBCs yielding IG's will be scanned manually for concordance. If this scan disagrees with the automated IG or if promyelocytes are noted, a manual differential will be performed. Immature Gran Absolute 0.01 0.00 - 0.05 x10(3)/mcL [facility] MILLENNIUM Blood specimen (specimen) 08/18/2013 10:20 AM EST 08/18/2013 10:30 AM EST Rios Acuna MD HEMATOLOGY ORDERABLE S Performing Organization Address [facility] Phone Number [facility] * Prothrombin Time (08/18/2013 10:20 AM EST) Prothrombin Time 12.2 12.0 - 15.0 sec [facility] Comment: [facility] Transfusion Committee Guidelines: INR less than 2.0, PTT less than OR equal to 43.5 seconds, or Fibrinogen greater than or equal to 100 mg/dl indicate adequate procoagulant activity for hemostasis in patients without underlying bleeding disorders. International Normalization Ratio 0.9 0.9 - 1.1 [facility] Blood specimen (specimen) 08/18/2013 10:20 AM EST 08/18/2013 10:30 AM EST Narrative Resulting Agency Comment Spec In Lab Rios Acuna MD HEMATOLOGY ORDERABLE S Performing Organization Address [facility] de Phone Number [facility] * Basic Metabolic Panel (non-fasting) (08/18/2013 10:20 AM EST) Glucose 110 60 - 199 mg/dL [facility] Comment:Diabetes: >=200 mg/d L plus symptoms Blood Urea Nitrogen 11 8 - 18 mg/dL [facility] Creatinine 0.94 0.70 - 1.20 mg/dL [facility] Comment: Please note that the pediatric reference intervals supplied above were not validated at [facility]. Results from pediatric patients should [...] MD HEMATOLOGY ORDERABLE S Performing Organization Address City/[facility] Co de Phone Number VIKTOR PATELENNIUM * Antibody screen (08/18/2013 10:20 AM EST) Ab Screen Interp Negative CERJORGE PATELENNIUM Expires at [id number] on: [id number] CERJORGE PATELENNIUM Blood specimen (specimen) 08/18/2013 10:20 AM EST 08/18/2013 10:31 AM EST Narrative Resulting Agency Comment Spec In Lab Rios Acuna MD BLOOD BANK LAB ORDER DAMARIS Performing Organization Address City/[facility] Co de Phone Number VIKTOR SAHAIUM * ABO/Rh Typing (08/18/2013 10:20 AM EST) ABORH Type A Pos CERNER MILLENNIUM Blood specimen (specimen) 08/18/2013 10:20 AM EST 08/18/2013 10:31 AM EST Narrative Resulting Agency Comment Spec In Lab Rios Acuna MD BLOOD BANK LAB ORDER DAMARIS Performing Organization Address City/[facility] Co de Phone Number VIKTOR SAHAIUM documented in this encounter Visit Diagnoses Diagnosis Herniated nucleus pulposus, C6-7 Right, with degenderative changes Displacement of cervical intervertebral disc without myelopathy documented in this encounter Care Teams Chucking Lathe Operator Relationship Specialty Start Date End Date Mary Alice Cage APRN PCP - General 10/12/11 11/12/18 documented as of this encounter
--- OUTSIDE RECORDS SUMMARY | 2024-06-15 10:35 | XMS_ITS | Encounter Summary ---
[place] [address] Care Team Providers Care Ink Maker Name Role Phone MifflinMary Alice davis Rajendra ROY Primary Care Provider [phone] Encounter Details Date Type Department Care Team (Late st Contact Info) Description 11/04/2012 1:38 PM EDT Anesthesia Event [place] [address] Tara Madrid MD [facility] [place] [address] Zachariah Kay MD [facility] [place] [address] Anesthesia Record Procedure Summary Procedure Name Responsible [...] Patient states none loose. Extremely poot dentition [facility] Assessment: Anesthesia Plan: ASA 2 general, with a(n) intravenous induction 52yo F smoker for lap shruthi. Neg sleep study. pft reviewed and incomplete. Per allergy list: albuterol & egg. Informed Consent: Anesthetic plan and risks discussed with patient. Plan discussed with resident and attending. [facility]. Assessment: documented in this encounter Plan of [...] mg documented in this encounter Care Teams Ink Maker Relationship Specialty Start Date End Date Mary Alice Cage APRN PCP - General 10/12/11 11/12/18 documented as of this encounter
--- OUTSIDE RECORDS SUMMARY | 2024-06-15 10:35 | XMS_ITS | Encounter Summary ---
Author Organization [facility] Address [facility] [place] [address] Care Team Providers Care Sales Floor Team Leader Name Role Phone Mary Alice Cage MANUELA Primary Care Provider [phone] Encounter Details Date Type Department Care Team (Latest Contact Info) Description 07/07/2013 7:28 AM EST - 07/07/2013 11:59 PM [facility] Hospital Encounter XRay at [address] [place] [address] CLINIC, Rios Morris MD [facility] [place] [address] Herniated nucleus pulposus, C6-7 Right, with degenderative [...] myelopathy documented in this encounter Care Teams Sales Floor Team Leader Relationship Specialty Start Date End Date Mary Alice Cage APRN PCP - General 10/12/11 11/12/18 documented as of this encounter
--- OUTSIDE RECORDS SUMMARY | 2024-06-15 10:35 | XMS_ITS | Encounter Summary ---
Author Organization Formerly [facility] [place] [address] Care Team Providers Care Audiovisual Production Specialist Name Role Phone MilamMary Alice davis Rajenrda ROY Primary Care Provider [phone] Reason for Visit * Reason Onset Date Comments Medication Refill 07/05/2013 Encounter Details Date Type Department Care Team (Late st Contact Info) Description 07/05/2013 Refill [place] [address] Letty Vidal APRN [facility] DR [place] [address] Social History Tobacco Use Types Packs/Day Years [...] per tablet [LETTY VIDAL, MANUELA] Preferred pharmacy: [facility] [address] [place] [address] Comment: documented in this encounter Plan of Treatment Not on file documented as of this encounter Visit Diagnoses Not on filedocumented in this encounter Care Teams Audiovisual Production Specialist Relationship Specialty Start Date End Date Mary Alice Cage APRN PCP - General 10/12/11 11/12/18 documented as of this encounter
--- OUTSIDE RECORDS SUMMARY | 2024-06-15 10:35 | XMS_ITS | Encounter Summary ---
[place] [address] Care Team Providers Care Rustic Terrazzo Setter Name Role Phone Mary Alice Cage APRN Primary Care Provider Reason for Visit * Reason Onset Date Comments Pre Procedure Call 08/21/2013 D/C NSAID's, ASA, and Fish oil Encounter Details Date Type Department Care Team (Late st Contact Info) Description 08/21/2013 Telephone [place] [address] Colleen Wright LPN Pre Procedure [...] on filedocumented in this encounter Care Teams Rustic Terrazzo Setter Relationship Specialty Start Date End Date Mary Alice Cage APRN PCP - General 10/12/11 11/12/18 documented as of this encounter
--- OUTSIDE RECORDS SUMMARY | 2024-06-15 10:35 | XMS_ITS | Encounter Summary ---
Author Organization [facility] [place] [address] Care Team Providers Care Director Of Analytics Name Role Phone Mary Alice Cage MANUELA Primary Care Provider [phone] Encounter Details Date Type Department Care Team (Late st Contact Info) Description 11/04/2012 1:47 PM EDT - 11/04/2012 3:45 PM EDT [place] [address] Abel Rhoades MD [facility] [place] [address] LAPAROSCOPIC CHOLECYSTECTOMY WITH CHOLANGIOGRAM (WRVU 11.47) Social [...] 101.3 F. The number for questions is [phone] before 5 PM weekdays and [phone] after 5 PM and weekends. Pain Medication: No driving for 8 hours after any dose of Percocet. You may use ibuprofen (motrin, advil) in addition if your pain is not totally controlled. Follow-up: A follow-up appointment will be scheduled with Dr. Rhoades in 4-6 weeks. The appointment will be mailed to you. Please call [phone] (clinic number for appointments) to confirm the [...] Rhoades MD - 11/04/2012 3:04 PM EDT [facility] Operative Note Patient Name: Poppy Pino : [id number] MR#: [id number] Case Date: 11/04/2012 Surgeon: Surgeon(s) and Role: [...] 10-mm port site was closed with interrupted ynwsmw-bo-cfmea 0-Vicryl suture followed by running subcuticular 4-0 [...] 2:55 PM EDT) Surgical Pathology Report ? [facility] ? Provider: ?? ABEL RHOADES ? Pt. Name: ?? POPPY PINO ? Acc #: ?[id number] ?Pt. ? Col Date: ?? 11/04/2012 ? [...] MD PATHOLOGY/CYTOLOGY O RODDY Performing Organization Address [facility] Co de Phone Number VIKTOR TODD * Specimen to Pathology (surgical or derm) (11/04/2012 2:45 PM EDT) AP Specimen 11/04/2012 2:45 PM EDT 11/04/2012 2:45 PM EDT Narrative VIKTOR TODD - 11/04/2012 2:45 PM EDT Specimen requisition ordered. ??Separate Pathology report to follow Abel Rhoades MD PATHOLOGY/CYTOLOGY O RODDY Performing Organization Address [facility] Co de Phone Number VIKTOR TODD [...] Routine documented in this encounter Care Teams Director Of Analytics Relationship Specialty Start Date End Date Mary Alice Cage APRN PCP - General 10/12/11 11/12/18 documented as of this encounter
--- OUTSIDE RECORDS SUMMARY | 2024-06-15 10:36 | XMS_ITS | Encounter Summary ---
Author Organization Formerly [facility] [place] [address] Care Team Providers Care Information Services Vice President Name Role Phone Mary Alice Domingo APRN Primary Care Provider [phone] Reason for Visit * Reason Comments Other dyspepsia Encounter Details Date Type Department Care Team (Late st Contact Info) Description 10/23/2012 11:00 AM EDT Office Visit [place] [address] Abel Carlton MD [facility] [place] [address] Biliary colic (Primary Dx) Discharge Disposition: Home [...] obstruction documented in this encounter Care Teams Information Services Vice President Relationship Specialty Start Date End Date Mary Alice Domingo APRN PCP - General 10/12/11 11/12/18 documented as of this encounter
--- OUTSIDE RECORDS SUMMARY | 2024-06-15 10:36 | XMS_ITS | Encounter Summary ---
Author Organization [facility] [place] [address] Care Team Providers Care Dog Walker Name Role Phone Mary Alice Cage APRN Primary Care Provider [phone] Reason for Visit * Reason Onset Date Comments Other 04/16/2012 SBFT Encounter Details Date Type Department Care Team (Late st Contact Info) Description 04/16/2012 [place] [address] Bhavani Knowles RN Other (SBFT) Social History [...] PM EDT Received faxed SBFT results from [facility]. A copy of the results and letter to be sent to patient to her mailing address. documented in this encounter Plan of Treatment Not on file documented as of this encounter Visit Diagnoses Not on filedocumented in this encounter Care Teams Dog Walker Relationship Specialty Start Date End Date Mary Alice Cage APRN PCP - General 10/12/11 11/12/18 documented as of this encounter
--- OUTSIDE RECORDS SUMMARY | 2024-06-15 10:36 | XMS_ITS | Encounter Summary ---
Author Organization [facility] [place] [address] Care Team Providers Care Business Intelligence Etl Developer Name Role Phone Mary Alice Cage APRN Primary Care Provider [phone] Reason for Visit * Reason Comments Sinusitis Encounter Details Date Type Department Care Team (Late st Contact Info) Description 08/28/2012 10:45 AM EST Office [place] [address] Samra Goodson APRN [facility] [place] [address] Rhinitis (Primary Dx) Discharge Disposition: Home Social [...] Visit: 08/28/2012 Location of Visit: Otolaryngology Clinic, [facility] Patient: Poppy Del Cid Arnoldo ([id number] ; 1960 Primary Care Provider: Mary Alice [...] Egg Social History: Poppy Mclaughlin lives in [place] [address],with her . She does smoke 1 1/2 [...] recheck or sooner if needed. Samra WORKMAN [place], [place] [address] Office documented in this encounter Plan of Treatment Not on file documented as of this encounter Visit Diagnoses Diagnosis Rhinitis- Primary Chronic rhinitis documented in this encounter Care Teams Business Intelligence Etl Developer Relationship Specialty Start Date End Date Mary Alice Cage APRN PCP - General 10/12/11 11/12/18 documented as of this encounter
--- OUTSIDE RECORDS SUMMARY | 2024-06-15 10:36 | XMS_ITS | Encounter Summary ---
Author Organization [facility] [place] [address] Care Team Providers Care Quality Systems Engineer Name Role Phone OutagamieMary Alice davis MANUELA Primary Care Provider [phone] Encounter Details Date Type Department Care Team (Late st Contact Info) Description 10/14/2012 2:00 PM EST Office [place] [address] Beth Blum LD [place] [address] Abdominal distension (Primary Dx) Discharge Disposition: Home [...] 2 weeks and we will re evaluate ([phone]) documented in this encounter Progress Notes * [...] history: Vitals 10/14/2012 08/28/2012 08/28/2012 05/26/2012 Height (Maltese) 5' 4 5' 2 5' 4 Height (Metric) 162.6 cm 157.5 cm 162.6 cm Weight (Maltese) 158 lbs 160 lbs 167 lbs Weight (Metric) 71.668 kg 72.576 kg 75.751 kg BODY MASS INDEX 27.11 kg/m2 29.26 kg/m2 28.65 kg/m2 Vitals 11/09/2011 Height (Maltese) 5' 3.78 Height (Metric) 162 cm Weight (Maltese) 172 lbs Weight (Metric) 78.019 kg BODY [...] not work because of this. Worked at [employer]. 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 [...] 2 weeks and we will re evaluate ([phone]) documented in this encounter Plan of Treatment Not on file documented as of this encounter Procedures Procedure Name Priority Date/Time Associated Diagnosis Comments VITAMIN D, 25-HYDROXY Routine 10/14/2012 2:50 PM EST Abdominal distension documented in this encounter Results * (ABNORMAL) VIT D Total Evaluation (10/14/2012 2:50 PM EST) Vitamin D Total 25 OH 10(L) 30 - 100 ng/mL [facility] Comment: Deficient <10 ng/mL Insufficient 10 to [...] Lab Justin Starkey MD CHEMISTRY ORDERABLES [facility] documented in this encounter Visit Diagnoses Diagnosis Abdominal distension- Primary Flatulence, eructation, and gas pain documented in this encounter Care Teams Quality Systems Engineer Relationship Specialty Start Date End Date Mary Alice Cage APRN PCP - General 10/12/11 11/12/18 documented as of this encounter
--- OUTSIDE RECORDS SUMMARY | 2024-06-15 10:36 | XMS_ITS | Encounter Summary ---
Author Organization [facility] [place] [address] Care Team Providers Care Ward Aide Name Role Phone LawrenceMary Alice davis Rajendra ROY Primary Care Provider [phone] Reason for Visit * Reason Comments Abdominal Pain Encounter Details Date Type Department Care Team (Late st Contact Info) Description 05/13/2012 1:00 PM EDT Office [place] [address] Prince Gentile MD [facility] 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 The methane data is remarkable fora [...] pain documented in this encounter Care Teams Ward Aide Relationship Specialty Start Date End Date Mary Alice Cage APRN PCP - General 10/12/11 11/12/18 documented as of this encounter
--- OUTSIDE RECORDS SUMMARY | 2024-06-15 10:36 | XMS_ITS | Encounter Summary ---
Author Organization [facility] [place] [address] Care Team Providers Care Resource Program Teacher Name Role Phone NilesMary Alice Rajendra ROY Primary Care Provider [phone] Reason for Referral * Surgical (Routine) - Closed Specialty Diagnoses / Procedures Referred By Chava alejo Referred To Contact General Surgery Diagnoses Dyspepsia Malia Vidal APRN [facility] [place] [address] Abel Carlton MD [facility] [place] [address] Referral ID Status Reason Start Date Expiration Date V isits Requested Visits Authorized [id number] Closed Consult, Test & Treat 09/29/2012 03/28/2013 1 1 Encounter Details Date Type Department Care Team (Late st Contact Info) Description 09/29/2012 Orders [place] [address] Malia Vidal [facility] [place] [address] Dyspepsia (Primary Dx) Social History Tobacco Use [...] stomach documented in this encounter Care Teams Resource Program Teacher Relationship Specialty Start Date End Date Mary Alice Cage APRN PCP - General 10/12/11 11/12/18 documented as of this encounter
--- OUTSIDE RECORDS SUMMARY | 2024-06-15 10:36 | XMS_ITS | Encounter Summary ---
[place] [address] Care Team Providers Care Web Ui Developer Name Role Phone CopiahMary Alice davis Rajendra ROY Primary Care Provider [phone] Encounter Details Date Type Department Care Team (Latest Contact Info) Description 08/28/2012 8:30 AM EST - 08/28/2012 11:59 PM [facility] Hospital En[place] [address] Calcified granuloma of lung (Primary Dx) Social [...] parenchymal disease (i.e. emphysema, ILD), and anemia. Automotive Parts Coordinator notes during the spirometric procedure state that [...] parenchymal disease (i.e. emphysema, ILD), and anemia. Automotive Parts Coordinator notes during the spirometric procedure state that [...] pulmonaryparenchymal disease (i.e. emphysema, ILD), and anemia. Automotive Parts Coordinator notes during the spirometric procedure state that [...] fibrosis documented in this encounter Care Teams Web Ui Developer Relationship Specialty Start Date End Date Mary Alice Cage APRN PCP - General 10/12/11 11/12/18 documented as of this encounter
--- OUTSIDE RECORDS SUMMARY | 2024-06-15 10:36 | XMS_ITS | Encounter Summary ---
Author [place] [address] Care Team Providers Care Drying Machine Back Tender Name Role Phone Mary Alice Cage APRN Primary Care Provider [phone] Reason for Visit * Reason Onset Date Comments Medication Refill 05/30/2012 Encounter Details Date Type Department Care Team (Late st Contact Info) Description 05/30/2012 [place] [address] Ashanti Talley RN Social History Tobacco Use [...]
--- OUTSIDE RECORDS SUMMARY | 2024-06-15 10:36 | XMS_ITS | Encounter Summary ---
Author Organization [facility] [place] [address] Care Team Providers Care Oracle Fusion Developer Name Role Phone WilkesMary Alice davis Rajendra ROY Primary Care Provider [phone] Reason for Visit * Reason Comments Referral Encounter Details Date Type Department Care Team (Late st Contact Info) Description 08/28/2012 9:00 AM EST Office [place] [address] Osmany Holloway MD [facility] [place] [address] Multiple nodules of lung (Primary Dx) Discharge [...] has lived most [place] she did visit [place] when she was a child, though she [...] [place], and has never lived outside of [place] other than the visit to [place] as indicated. She denies alcohol. She has [...] she was a child when she visited [place], may the nodules are not calcified, and [...] with neuromuscular weakness. Oxygen saturation is normal. Adnriy Valdez MD Pulmonary Medicine Osmany Overton MD [...] EST) Amylase 70 28 - 100 unit/L [facility] Blood specimen (specimen) 08/28/2012 12:20 PM EST 08/28/2012 12:30 PM EST Narrative Resulting Agency Comment Spec In Lab Osmany Overton MD CHEMISTRY ORDERABLE S Performing Organization Address [facility] Co de Phone Number [facility] * Sedimentation rate (08/28/2012 12:20 PM EST) Sedimentation Rate Automated 16 0 - 20 mm/hr [facility] Blood specimen (specimen) 08/28/2012 12:20 PM EST 08/28/2012 12:30 PM EST Narrative Resulting Agency Comment Spec In Lab Osmany Overton MD HEMATOLOGY ORDERABL ES Performing Organization Address [facility] Phone Number [facility] * Angiotensin Converting Enzyme (08/28/2012 12:20 PM EST) Yayo (DECEMBER) 31 8 - 53 unit/L [facility] Comment: Test Performed by: [employer] [email or web address] [address] Test Case Developer: Keena Vogel, Ph.D. Blood specimen (specimen) 08/28/2012 12:20 PM EST 08/28/2012 1:30 PM EST Narrative Resulting Agency Comment Spec In Lab Osmany Overton MD LAB SEND OUT ORDERA BLES Performing Organization Address [facility] Co de Phone Number [facility] documented in this encounter Visit Diagnoses Diagnosis Multiple nodules of lung- Primary Other nonspecific abnormal finding of lung field Multiple nodules of lung- Primary Other nonspecific abnormal finding of lung field documented in this encounter Care Teams Oracle Fusion Developer Relationship Specialty Start Date End Date Mary Alice Cage APRN PCP - General 10/12/11 11/12/18 documented as of this encounter
--- OUTSIDE RECORDS SUMMARY | 2024-06-15 10:36 | XMS_ITS | Encounter Summary ---
Author Organization [facility] Address [facility] [place] [address] Care Team Providers Care Tour Counselor Name Role Phone Mary Alice Cage MANUELA Primary Care Provider [phone] Encounter Details Date Type Department Care Team (Latest Contact Info) Description 10/23/2012 12:16 PM EDT - 10/23/2012 11:59 PM EDT Hospital [place] [address] CLINIC, DR MATEUSZ Holloway, Osmany Overton MD [facility] [place] [address] Dyspnea Discharge Disposition: Home Social History Tobacco [...] Almanzar MD - 10/23/2012 Examination MR Mamie DEVINE Nehemias Clinical History Severe respiratory muscle [...] abnormality documented in this encounter Care Teams Tour Counselor Relationship Specialty Start Date End Date Mary Alice Cage APRN PCP - General 10/12/11 11/12/18 documented as of this encounter
--- OUTSIDE RECORDS SUMMARY | 2024-06-15 10:36 | XMS_ITS | Encounter Summary ---
Author Organization [facility] [address] Care Team Providers Care Sewer Contractor Name Role Phone HayesMary Alice davis MANUELA Primary Care Provider [phone] Encounter Details Date Type Department Care Team (Late st Contact Info) Description 06/23/2012 Orders Only [place] [address] Malia Vidal APRN [facility] [place] [address] Pulmonary nodules (Primary Dx) Social History Tobacco [...] field documented in this encounter Care Teams Sewer Contractor Relationship Specialty Start Date End Date Mary Alice Cage APRN PCP - General 10/12/11 11/12/18 documented as of this encounter
--- OUTSIDE RECORDS SUMMARY | 2024-06-15 10:36 | XMS_ITS | Encounter Summary ---
[place] [address] Care Team Providers Care Automation Test Engineer Name Role Phone CanóvanasMary Alice davis MANUELA Primary Care Provider [phone] Reason for Visit * Reason Onset Date Comments Results 02/25/2012 ultrasound, mano metry Encounter Details Date Type Department Care Team (Late st Contact Info) Description 02/25/2012 Telephone [place] [address] Bhavani Knowles RN Results (ultrasound, manometry) Social [...] on filedocumented in this encounter Care Teams Automation Test Engineer Relationship Specialty Start Date End Date Mary Alice Cage APRN PCP - General 10/12/11 11/12/18 documented as of this encounter
--- OUTSIDE RECORDS SUMMARY | 2024-06-15 10:36 | XMS_ITS | Encounter Summary ---
[place] [address] Care Team Providers Care Space Technologist Name Role Phone ClarkMary Alice davis Rajendra ROY Primary Care Provider [phone] Reason for Visit * Reason Onset Date Comments Other 03/05/2012 aciphex failed a nd wants spasm med? Encounter Details Date Type Department Care Team (Late st Contact Info) Description 03/05/2012 Telephone [place] [address] Ashanti Talley RN Other (aciphex failed and wants spasm [...] on filedocumented in this encounter Care Teams Space Technologist Relationship Specialty Start Date End Date Mary Alice Cage APRN PCP - General 10/12/11 11/12/18 documented as of this encounter
--- OUTSIDE RECORDS SUMMARY | 2024-06-15 10:36 | XMS_ITS | Encounter Summary ---
Author Organization [facility] [place] [address] Care Team Providers Care Physics Department Chair Name Role Phone Mary Alice Cage APRN Primary Care Provider [phone] Reason for Visit * Reason Onset Date Comments Other 07/10/2012 pt calls Encounter Details Date Type Department Care Team (Late st Contact Info) Description 07/10/2012 Telephone [place] [address] Malia Vidal [facility] DR GASTROENTEROLOGY [place] [address] Other (pt calls) Social History Tobacco Use [...] on filedocumented in this encounter Care Teams Physics Department Chair Relationship Specialty Start Date End Date Mary Alice Cage APRN PCP - General 10/12/11 11/12/18 documented as of this encounter
--- OUTSIDE RECORDS SUMMARY | 2024-06-15 10:36 | XMS_ITS | Encounter Summary ---
Author Organization [place] [id number] Care Team Providers Care Frame Expander Name Role Phone Niles Mary Alicepham Drew APRN Primary Care Provider [phone] Reason for Referral * Surgical (Urgent) - Closed Specialty Diagnoses / Procedures Referred By Chava t Referred To Contact Orthopaedics Diagnoses Dyspnea Osmany Holloway MD [facility] [place] [address] [facility] [address] [place] [phone] Referral ID Status Reason Start Date Expiration Date V isits Requested Visits Authorized [id number] Closed Consult, Test & Treat 10/27/2012 04/25/2013 1 1 Encounter Details Date Type Department Care Team (Late st Contact Info) Description 10/27/2012 Orders [place] [address] Osmany Holloway MD [facility] [place] [address] Dyspnea (Primary Dx) Social History [...] abnormality documented in this encounter Care Teams Frame Expander Relationship Specialty Start Date End Date Mary Alice Cage APRN PCP - General 10/12/11 11/12/18 documented as of this encounter
--- OUTSIDE RECORDS SUMMARY | 2024-06-15 10:36 | XMS_ITS | Encounter Summary ---
[place] [address] Care Team Providers Care Clinical Support Tech Name Role Phone Mary Alice Cage APRN Primary Care Provider [phone] Reason for Visit * Reason Onset Date Comments Other 02/05/2012 headaches Encounter Details Date Type Department Care Team (Late st Contact Info) Description 02/05/2012 Tele[place] [address] Bhavani Knowles RN Other (headaches) Social History [...] Malia Vidal APRN. GI clinic phone number: [phone] given. documented in this encounter Plan of Treatment Not on file documented as of this encounter Visit Diagnoses Not on filedocumented in this encounter Care Teams Clinical Support Tech Relationship Specialty Start Date End Date Mary Alice Cage APRN PCP - General 10/12/11 11/12/18 documented as of this encounter
--- OUTSIDE RECORDS SUMMARY | 2024-06-15 10:36 | XMS_ITS | Encounter Summary ---
[facility] [address] Care Team Providers Care Coordinator Of Genetic Services Name Role Phone ThayerMary Alice davis Rajendra ROY Primary Care Provider [phone] Encounter Details Date Type Department Care Team (Late st Contact Info) Description 09/09/2012 Orders Only [place] [address] Abel Carlton MD [facility] [place] [address] Social History Tobacco Use Types Packs/Day Years [...] IMG FILM LIBRARY ORD ERABLES RAD [address] [facility] [place] [address] documented in this encounter Visit Diagnoses Not on filedocumented in this encounter Care Teams Coordinator Of Genetic Services Relationship Specialty Start Date End Date Mary Alice Cage APRN PCP - General 10/12/11 11/12/18 documented as of this encounter
--- OUTSIDE RECORDS SUMMARY | 2024-06-15 10:36 | XMS_ITS | Encounter Summary ---
Author Organization [facility] [place] [address] Care Team Providers Care Figure Clerk Name Role Phone Mary Alice Cage APRN Primary Care Provider Encounter Details Date Type Department Care Team (Late st Contact Info) Description 03/05/2012 Orders [place] [address] Malia Vidal APRN [facility] [place] [address] GI disease (Primary Dx) Social History Tobacco [...] intestine documented in this encounter Care Teams Figure Clerk Relationship Specialty Start Date End Date Mary Alice Cage APRN PCP - General 10/12/11 11/12/18 documented as of this encounter
--- OUTSIDE RECORDS SUMMARY | 2024-06-15 10:36 | XMS_ITS | Encounter Summary ---
[facility] Organization [facility] [address] Care Team Providers Care Sustainability Project Coordinator Name Role Phone Mary Alice Cage MANUELA Primary Care Provider [phone] Encounter Details Date Type Department Care Team (Late st Contact Info) Description 08/19/2012 Orders [place] [address] Deep Helms MD [facility] [place] [address] Calcified granuloma of lung (Primary Dx) Social [...] parenchymal disease (i.e. emphysema, ILD), and anemia. Field Horticultural Specialty Grower notes during the spirometric procedure state that [...] pulmonaryparenchymal disease (i.e. emphysema, ILD), and anemia. Field Horticultural Specialty Grower notes during the spirometric procedure state that [...] fibrosis documented in this encounter Care Teams Sustainability Project Coordinator Relationship Specialty Start Date End Date Mary Alice Cage APRN PCP - General 10/12/11 11/12/18 documented as of this encounter
--- OUTSIDE RECORDS SUMMARY | 2024-06-15 10:36 | XMS_ITS | Encounter Summary ---
[place] [address] Care Team Providers Care Utility Accounts Director Name Role Phone Niles Mary Alicepham Drew APRN Primary Care Provider [phone] Reason for Referral * Consultation (Routine) - Closed Specialty Diagnoses / Procedures Referred By Chava alejo Referred To Contact Pain Management Diagnoses Herniated nucleus pulposus, C6-7 Satya Alfaro MD [facility] [place] [address] [facility] [address] [place] [address] Referral ID Status Reason Start Date Expiration Date V isits Requested Visits Authorized [id number] Closed Consult, Test & Treat 11/03/2012 05/02/2013 1 1 Reason for Visit * Reason Comments Back Pain Bilateral Hip Pain Neck Pain Encounter Details Date Type Department Care Team (Latest Contact Info) Description 11/03/2012 9:55 AM EDT Office [place] [address] Rios Acuna MD [facility] [place] [address] Herniated nucleus pulposus, C6-7 Right, with degenderative [...] 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 She is [...] myelopathy documented in this encounter Care Teams Utility Accounts Director Relationship Specialty Start Date End Date Mary Alice Cage APRN PCP - General 10/12/11 11/12/18 documented as of this encounter
--- OUTSIDE RECORDS SUMMARY | 2024-06-15 10:36 | XMS_ITS | Encounter Summary ---
Author Organization [facility] [place] [address] Care Team Providers Care Cut Off Worker Name Role Phone Mary Alice Cage MANUELA Primary Care Provider Reason for Visit * Reason Comments Follow-up Encounter Details Date Type Department Care Team (Late st Contact Info) Description 10/14/2012 4:15 PM EST Follow-[place] [address] SCHEDULE 1, PFT Osmany Holloway MD [facility] [place] [address] Dyspnea (Primary Dx) Discharge Disposition: Home Social [...] Procedure Name Priority Date/Time Associated Diagnosis Comments [id number] Routine 10/14/2012 5 :43 PM EST Dyspnea [...] Creatine Kinase 86 0 - 160 unit/L [facility] Blood specimen (specimen) 10/14/2012 5:43 PM EST 10/14/2012 5:47 PM EST Narrative Resulting Agency Comment Spec In Lab Osmany Overton MD CHEMISTRY ORDERABLE S [facility] * A1AT Serum Concentration (10/14/2012 5:43 PM EST) A1AT 171 100 - 190 mg/dL [facility] Comment: Test Performed by: [facility] [employer] [address], [place] [address] Group Activities Aide: Keena Vogel, Ph.D. Blood specimen (specimen) 10/14/2012 5:43 PM EST 10/15/2012 8:20 AM EST Narrative Resulting Agency Comment Spec In Lab Osmany Overton MD CHEMISTRY ORDERABLE S [facility] documented in this encounter Visit Diagnoses Diagnosis Dyspnea- Primary Other dyspnea and respiratory abnormality Dyspnea Other dyspnea and respiratory abnormality documented in this encounter Care Teams Cut Off Worker Relationship Specialty Start Date End Date Mary Alice Cage APRN PCP - General 10/12/11 11/12/18 documented as of this encounter
--- OUTSIDE RECORDS SUMMARY | 2024-06-15 10:36 | XMS_ITS | Encounter Summary ---
[place] [address] Care Team Providers Care Department Specialist Name Role Phone Mary Alice Cage APRN Primary Care Provider [phone] Encounter Details Date Type Department Care Team (Late st Contact Info) Description 10/31/2012 Abstract [place] [address] Renu Jacobsen, PICTURE ENGRAVER Social History Tobacco Use Types Packs/Day Years [...] on filedocumented in this encounter Care Teams Department Specialist Relationship Specialty Start Date End Date Mary Alice Cage APRN PCP - General 10/12/11 11/12/18 documented as of this encounter
--- OUTSIDE RECORDS SUMMARY | 2024-06-15 10:36 | XMS_ITS | Encounter Summary ---
Author Organization [facility] [address] Care Team Providers Care Internal Audit Manager Name Role Phone BrookeMary Alice davis Rajendra ROY Primary Care Provider Encounter Details Date Type Department Care Team (Late st Contact Info) Description 09/11/2012 Orders [place] [address] Abel Carlton MD [facility] [place] [address] Social History Tobacco Use Types Packs/Day Years [...] [address] [facility] [place] [address] documented in this encounter Visit Diagnoses Not on filedocumented in this encounter Care Teams Internal Audit Manager Relationship Specialty Start Date End Date Mary Alice Cage APRN PCP - General 10/12/11 11/12/18 documented as of this encounter
--- OUTSIDE RECORDS SUMMARY | 2024-06-15 10:36 | XMS_ITS | Encounter Summary ---
[place] [address] Care Team Providers Care Theater Set Production Designer Name Role Phone Mary Alice Cage APRN Primary Care Provider [phone] Reason for Visit * Reason Onset Date Comments Medication Refill 03/05/2012 Encounter Details Date Type Department Care Team (Late st Contact Info) Description 03/05/2012 Refill [place] [address] Ashanti Talley RN Social History Tobacco Use [...] on filedocumented in this encounter Care Teams Theater Set Production Designer Relationship Specialty Start Date End Date Mary Alice Cage APRN PCP - General 10/12/11 11/12/18 documented as of this encounter
--- OUTSIDE RECORDS SUMMARY | 2024-06-15 10:36 | XMS_ITS | Encounter Summary ---
[place] [address] Care Team Providers Care Milk Tester Name Role Phone Mary Alice Cage APRN Primary Care Provider [phone] Reason for Visit * Reason Onset Date Comments Other 03/05/2012 calling her insu brionna re PPi Encounter Details Date Type Department Care Team (Late st Contact Info) Description 03/05/2012 Telephone [place] [address] Ashanti Talley RN Other (calling [...] on filedocumented in this encounter Care Teams Milk Tester Relationship Specialty Start Date End Date Mary Alice Cage APRN PCP - General 10/12/11 11/12/18 documented as of this encounter
--- OUTSIDE RECORDS SUMMARY | 2024-06-15 10:36 | XMS_ITS | Encounter Summary ---
[place] [address] Care Team Providers Care Hourly Sign Language Interpreter Name Role Phone Mary Alice Cage APRN Primary Care Provider Reason for Visit * Reason Onset Date Comments Other 03/05/2012 begin bentyl,ph testing Encounter Details Date Type Department Care Team (Late st Contact Info) Description 03/05/2012 Telephone [place] [address] Ashanti Talley RN Other (begin [...] EDT Called pt back per Sepideh Guthrie'damir MEDICAL AIDES TEACHER: Nutcracker probably cause of discomfort and. will [...] on filedocumented in this encounter Care Teams Hourly Sign Language Interpreter Relationship Specialty Start Date End Date Mary Alice Cage APRN PCP - General 10/12/11 11/12/18 documented as of this encounter
--- OUTSIDE RECORDS SUMMARY | 2024-06-15 10:36 | XMS_ITS | Encounter Summary ---
Author Organization [facility] [place] [address] Care Team Providers Care Trackmobile Operator Name Role Phone Mary Alice Cage MANUELA Primary Care Provider [phone] Encounter Details Date Type Department Care Team (Late st Contact Info) Description 07/22/2012 [place] [address] José Manuel Irwin MD [facility] [place] [address] Social History Tobacco Use Types Packs/Day Years [...] a Non-reportable exam José Manuel Irwin MD [facility] FILM LIBRARY ORD ERABLES documented in this encounter Visit Diagnoses Not on filedocumented in this encounter Care Teams Trackmobile Operator Relationship Specialty Start Date End Date Mary Alice Cage APRN PCP - General 10/12/11 11/12/18 documented as of this encounter
--- OUTSIDE RECORDS SUMMARY | 2024-06-15 10:36 | XMS_ITS | Encounter Summary ---
[place] [address] Care Team Providers Care Supervisor Yard Name Role Phone MarinetteMary Alice davis Rajendra ROY Primary Care Provider [phone] Encounter Details Date Type Department Care Team (Latest Contact Info) Description 10/14/2012 3:21 PM EST - 10/14/2012 11:59 PM EST Hospital En[place] [address] Multiple nodules of lung (Primary Dx) Social [...] field documented in this encounter Care Teams Supervisor Yard Relationship Specialty Start Date End Date Mary Alice Cage APRN PCP - General 10/12/11 11/12/18 documented as of this encounter
--- OUTSIDE RECORDS SUMMARY | 2024-06-15 10:36 | XMS_ITS | Encounter Summary ---
[place] [address] Care Team Providers Care Superintendent Job Name Role Phone Mary Alice Cage APRN Primary Care Provider [phone] Reason for Visit * Reason Onset Date Comments Medication Refill 07/10/2012 Encounter Details Date Type Department Care Team (Late st Contact Info) Description 07/10/2012 Ref[place] [address] Ashanti Talley RN Social History Tobacco Use [...] on filedocumented in this encounter Care Teams Superintendent Job Relationship Specialty Start Date End Date Mary Alice Cage APRN PCP - General 10/12/11 11/12/18 documented as of this encounter
--- OUTSIDE RECORDS SUMMARY | 2024-06-15 10:36 | XMS_ITS | Encounter Summary ---
Author Organization [facility] [place] [address] Care Team Providers Care Dye Blender Name Role Phone ColusaMary Alice davis MANUELA Primary Care Provider Reason for Visit * Reason Comments Follow-up Encounter Details Date Type Department Care Team (Late st Contact Info) Description 05/26/2012 1:00 PM EDT [place] [address] Malia Vidal FIELD HOCKEY COACH [facility] [place] [address] Bloat (Primary Dx) Discharge Disposition: Home Social [...] EDT) TTG IgA Ab <4.0 <=3.9 u/ml [facility] Comment: Result Interpretation: Negative: ?<4 U/mL Weak Positive: ??4-10 U/mL Positive: ?>10 U/mL Blood specimen (specimen) 05/26/2012 2:01 PM EDT 05/27/2012 8:16 AM EDT Narrative Resulting Agency Comment Spec In Lab Justin Starkey MD IMMUNOLOGY ORDERABLE S [facility] * TSH (05/26/2012 2:01 PM EDT) [...] supplied above were not validated at [facility]. Results from pediatric patients should [...] Starkey MD CHEMISTRY ORDERABLES Performing Organization Address City/[facility]/ZIP Co de Phone Number VIKTOR SAHAIUM * [...] MD HEMATOLOGY ORDERABLE S Performing Organization Address City/[facility]/[place] Co de Phone Number VIKTOR TODD * [...] pain documented in this encounter Care Teams Dye Blender Relationship Specialty Start Date End Date Mary Alice Cage APRN PCP - General 10/12/11 11/12/18 documented as of this encounter
--- OUTSIDE RECORDS SUMMARY | 2024-06-15 10:36 | XMS_ITS | Encounter Summary ---
Author Organization [facility] [address] Care Team Providers Care Skate Hop Name Role Phone Mary Alice Cage APRN Primary Care Provider Encounter Details Date Type Department Care Team (Late st Contact Info) Description 03/12/2012 Orders [place] [address] Malia Vidal APRN [facility] DR [place] [address] Social History Tobacco Use Types Packs/Day Years [...] on filedocumented in this encounter Care Teams Skate Hop Relationship Specialty Start Date End Date Mary Alice Cage APRN PCP - General 10/12/11 11/12/18 documented as of this encounter
--- OUTSIDE RECORDS SUMMARY | 2024-06-15 10:36 | XMS_ITS | Encounter Summary ---
[place] [address] Care Team Providers Care Seed Production Field Supervisor Name Role Phone Mary Alice Cage MANUELA Primary Care Provider [phone] Reason for Visit * Reason Onset Date Comments Other 03/05/2012 CT ordered in er ror - dept has removed Encounter Details Date Type Department Care Team (Late st Contact Info) Description 03/05/2012 Telephone [place] [address] Ashanti Talley, KAMLA Other (CT ordered in [...] I entered an order for Malia Dee CLOUD DEVELOPER: a CT on this pt today. Wrong patient. It is in error and the CT dept was called to remove it. The order may remain but really was not scheduled. documented in this encounter Plan of Treatment Not on file documented as of this encounter Visit Diagnoses Not on filedocumented in this encounter Care Teams Seed Production Field Supervisor Relationship Specialty Start Date End Date Mary Alice Cage APRN PCP - General 10/12/11 11/12/18 documented as of this encounter
--- OUTSIDE RECORDS SUMMARY | 2024-06-15 10:36 | XMS_ITS | Encounter Summary ---
Author Organization [facility] [place] [address] Care Team Providers Care Product Design Engineer Name Role Phone WilliamsMary Alice davis Rajendra ROY Primary Care Provider [phone] Reason for Referral * Consultation (Routine) - Closed Specialty Diagnoses / Procedures Referred By Chava alejo Referred To Contact Gastroenterology Diagnoses Dyspepsia Malia Vidal HYDRAMATIC SPECIALIST [facility] [place] [address] [facility] [place] [address] Referral ID Status Reason Start Date Expiration Date V isits Requested Visits Authorized [id number] Closed Consult, Test & Treat 08/24/2012 02/20/2013 1 1 Encounter Details Date Type Department Care Team (Late st Contact Info) Description 08/24/2012 Orders [place] [address] Malia Vidal [facility] [place] [address] Dyspepsia (Primary Dx) Social History [...] stomach documented in this encounter Care Teams Product Design Engineer Relationship Specialty Start Date End Date Mary lAice Cage APRN PCP - General 10/12/11 11/12/18 documented as of this encounter
--- OUTSIDE RECORDS SUMMARY | 2024-06-15 10:36 | XMS_ITS | Encounter Summary ---
[place] [address] Care Team Providers Care Funeral Attendant Name Role Phone LeelanauMary Alice davis Rajendra ROY Primary Care Provider [phone] Reason for Visit * Reason Onset Date Comments Prior Authorization 05/28/2012 Dexilant Encounter Details Date Type Department Care Team (Late st Contact Info) Description 05/28/2012 Telephone [place] [address] Debbie Skinner talent development director (Dexilant) Social History Tobacco Use Types Packs/Day [...] by mouth BID Insurance & Phone #: [facility] [phone] ID #: [id number] Trialed (dosage, frequency): Prilosec, Aciphex Notes: No PA needed. Informed pharmacy documented in this encounter Plan of Treatment Not on file documented as of this encounter Visit Diagnoses Not on filedocumented in this encounter Care Teams Funeral Attendant Relationship Specialty Start Date End Date Mary Alice Cage APRN PCP - General 10/12/11 11/12/18 documented as of this encounter
--- OUTSIDE RECORDS SUMMARY | 2024-06-15 10:36 | XMS_ITS | Encounter Summary ---
Author Organization [facility] Address [facility] [place] [address] Care Team Providers Care Brim Presser Name Role Phone WalthallMary Alice davis Rajendra ROY Primary Care Provider Encounter Details Date Type Department Care Team (Late st Contact Info) Description 05/26/2012 1:45 PM EDT - 05/26/2012 11:59 PM EDT Hospital Encounter XRay at [address] [place] [address] Bloat Social History Tobacco Use Types Packs/Day [...] pain documented in this encounter Care Teams Brim Presser Relationship Specialty Start Date End Date Mary Alice Cage APRN PCP - General 10/12/11 11/12/18 documented as of this encounter
--- OUTSIDE RECORDS SUMMARY | 2024-06-15 10:36 | XMS_ITS | Encounter Summary ---
[place] [address] Care Team Providers Care Glass Cylinder Flanger Name Role Phone Mary Alice Cage APRN Primary Care Provider [phone] Encounter Details Date Type Department Care Team (Late st Contact Info) Description 04/16/2012 Telephone [place] [address] Bhavani Knowles RN Social History Tobacco Use [...] results completed at a local hospital in [facility] were sent to [facility]. Patient unavailable for discussion. Left voice mail message with GI clinic phone number: [phone]. Note: according to [facility], no results for an SBFT have been received. documented in this encounter Plan of Treatment Not on file documented as of this encounter Visit Diagnoses Not on filedocumented in this encounter Care Teams Glass Cylinder Flanger Relationship Specialty Start Date End Date Mary Alice Cage APRN PCP - General 10/12/11 11/12/18 documented as of this encounter
--- OUTSIDE RECORDS SUMMARY | 2024-06-15 10:36 | XMS_ITS | Encounter Summary ---
Author Organization [facility] [place] [address] Care Team Providers Care Oil Well Logging Engineer Name Role Phone HaywoodMary Alice davis [facility] Primary Care Provider [phone] Reason for Referral * Consultation (Routine) - Duplicate Referral Specialty Diagnoses / Procedures Referred By Chava t Referred To Contact Diagnoses FODMAP Diet Malia Vidal, [facility] [place] [address] Beth Blum LD [facility] [place] [address] Referral ID Status Reason Start Date Expiration Date Visits Requested Visits Authorized [id number] Duplicate Referral Consult Only 08/19/2012 02/15/2013 1 1 * Consultation (Routine) - Closed Specialty Diagnoses / Procedures Referred By Chava alejo Referred To Contact Otolaryngology Diagnoses Post-nasal drainage Malia Vidal [facility] [place] [address] [facility] [address] [place] [id number] Referral ID Status Reason Start Date Expiration Date V isits Requested Visits Authorized [id number] Closed Consult, Test & Treat 08/19/2012 02/15/2013 1 1 * Consultation (Routine) - Closed Specialty Diagnoses / Procedures Referred By Contact Referred To Contact Pulmonary Disease / Pulmonology Diagnoses Abnormal chest CT Malia Vidal APRN [facility] [address] GASTROENTEROLOGY DEPT. [address] [facility] [address] [place] [address] Referral ID Status Reason Start Date Expiration Date V isits Requested Visits Authorized [id number] Closed Consult, Test & Treat 08/19/2012 02/15/2013 1 1 * Consultation (Routine) - Closed Specialty Diagnoses / Procedures Referred By Contac t Referred To Contact Diagnoses FODMAP Diet OMalia Pena [facility] DR GASTROENTEROLOGY DEPT. [address] Beth Blum [facility] [address] Referral ID Status Reason Start Date Expiration Date V isits Requested Visits Authorized [id number] Closed Consult, Test & Treat 08/19/2012 02/15/2013 1 1 Encounter Details Date Type Department Care Team (Late st Contact Info) Description 08/19/2012 Orders [place] [phone] Malia Vidal [facility] [place] [address] Dyspepsia; Post-nasal drainage; Abnormal chest CT Social [...] abnormal chest CT. Plan: 1. Refer to inspector. Will mail pt food logs prior 2 [...] organs documented in this encounter Care Teams Oil Well Logging Engineer Relationship Specialty Start Date End Date Mary Alice Cage APRN PCP - General 10/12/11 11/12/18 documented as of this encounter
--- OUTSIDE RECORDS SUMMARY | 2024-06-15 10:36 | XMS_ITS | Encounter Summary ---
Author Organization [facility] [place] [address] Care Team Providers Care Sample Steamer Name Role Phone Mary Alice Cage MANUELA Primary Care Provider Encounter Details Date Type Department Care Team (Latest Contact Info) Description 08/07/2012 10:03 AM [facility] - 08/07/2012 11:59 PM [facility] Hospital Encounter [place] [address] CLINIC, Justin Babin MD [facility] [place] [address] Pulmonary nodules Discharge Disposition: Home Social History [...] field documented in this encounter Care Teams Sample Steamer Relationship Specialty Start Date End Date Mary Alice Cage APRN PCP - General 10/12/11 11/12/18 documented as of this encounter
--- OUTSIDE RECORDS SUMMARY | 2024-06-15 10:36 | XMS_ITS | Encounter Summary ---
Author Organization [facility] Address [facility] [place] [address] Care Team Providers Care Threat Analyst Name Role Phone Mary Alice Cage MANUELA Primary Care Provider [phone] Encounter Details Date Type Department Care Team (Latest Contact Info) Description 05/26/2012 1:45 PM EDT - 05/26/2012 11:59 PM EDT Hospital Encounter XRay at [address] [place] [address] CLINIC, Justin Babin MD [facility] [place] [address] Bloat Discharge Disposition: Home Social History Tobacco [...] MD HEMATOLOGY ORDERABLE S Performing Organization Address [facility] Co de Phone Number [facility] * Tissue transglutaminase, IgA (05/26/2012 2:01 PM EDT) TTG IgA Ab <4.0 <=3.9 u/ml [facility] Comment: Result Interpretation: Negative: ?<4 U/mL Weak Positive: ??4-10 U/mL Positive: ?>10 U/mL Blood specimen (specimen) 05/26/2012 2:01 PM EDT 05/27/2012 8:16 AM EDT Narrative Resulting Agency Comment Spec In Lab Justin Starkey MD IMMUNOLOGY ORDERABLE S Performing Organization Address [facility] Co de Phone Number [facility] * TSH (05/26/2012 2:01 PM EDT) Thyroid Stimulating Hormone 0.87 0.27 - 4.20 mcIU/mL [facility] MILL[facility]UM Blood specimen (specimen) 05/26/2012 2:01 PM EDT 05/26/2012 2:08 PM EDT Narrative Resulting Agency Comment Spec In Lab Justin Starkey MD CHEMISTRY ORDERABLES [facility] * Comprehensive metabolic panel (non-fasting) (05/26/2012 2:01 PM EDT) [facility] Glucose 99 60 - 199 mg/dL [facility] MILLENNIUM Comment:Diabetes: >=200 mg/d L plus symptoms Blood Urea Nitrogen 12 8 - 18 mg/dL [facility] MILLENNIUM Creatinine 0.82 0.70 - 1.20 mg/dL [facility] MILLENNIUM Comment: Please note that the pediatric reference intervals supplied above were not validated at [facility]. Results from pediatric patients [...] Lab Justin Starkey MD CHEMISTRY ORDERABLES [facility] * (ABNORMAL) CBC (with Diff) (05/26/2012 [...] pain documented in this encounter Care Teams Threat Analyst Relationship Specialty Start Date End Date Mary Alice Cage APRN PCP - General 10/12/11 11/12/18 documented as of this encounter
--- OUTSIDE RECORDS SUMMARY | 2024-06-15 10:36 | XMS_ITS | Encounter Summary ---
[place] [address] Care Team Providers Care Metal Riveter Name Role Phone Mary Alice Cage APRN Primary Care Provider [phone] Reason for Visit * Reason Onset Date Comments Medication Refill 05/26/2012 Encounter Details Date Type Department Care Team (Late st Contact Info) Description 05/26/2012 Refill [place] [address] Ashanti Talley RN Social History Tobacco Use [...] filedocumented in this encounter Care Teams Metal Riveter Relationship Specialty Start Date End Date Mary Alice Cage APRN PCP - General 10/12/11 11/12/18 documented as of this encounter
--- OUTSIDE RECORDS SUMMARY | 2024-06-15 10:36 | XMS_ITS | Encounter Summary ---
Author Organization [facility] [place] [address] Care Team Providers Care Certified Retinal Angiographer Name Role Phone Mary Alice Cage APRN Primary Care Provider [phone] Reason for Visit * Reason Onset Date Comments Medication Refill 05/28/2012 Encounter Details Date Type Department Care Team (Late st Contact Info) Description 05/28/2012 Refill [place] [address] Malia Vidal SALES AND MARKETING ADMINISTRATOR [facility] [place] [address] Social History Tobacco Use Types Packs/Day Years [...] on filedocumented in this encounter Care Teams Certified Retinal Angiographer Relationship Specialty Start Date End Date Mary Alice Cage APRN PCP - General 10/12/11 11/12/18 documented as of this encounter
--- OUTSIDE RECORDS SUMMARY | 2024-06-15 10:36 | XMS_ITS | Encounter Summary ---
[place] [address] Care Team Providers Care Hydraulic Engineer Name Role Phone Mary Alice Cage APRN Primary Care Provider [phone] Reason for Visit * Reason Onset Date Comments Other 05/05/2012 Encounter Details Date Type Department Care Team (Late st Contact Info) Description 05/05/2012 Telephone [place] [address] Bhavani Knowles RN Other Social History Tobacco [...] mail message with GI clinic phone number: [phone]. documented in this encounter Plan of Treatment Not on file documented as of this encounter Visit Diagnoses Not on filedocumented in this encounter Care Teams Hydraulic Engineer Relationship Specialty Start Date End Date Mary Alice Cage APRN PCP - General 10/12/11 11/12/18 documented as of this encounter
--- OUTSIDE RECORDS SUMMARY | 2024-06-15 10:36 | XMS_ITS | Encounter Summary ---
Author Organization [facility] [place] [address] Care Team Providers Care Telephone Sex Worker Name Role Phone NilesMary Alice Rajendra ROY Primary Care Provider [phone] Encounter Details Date Type Department Care Team (Late st Contact Info) Description 10/23/2012 External Results XRay at [address] [place] [address] Malia Vidal APRN [facility] [place] [address] Social History Tobacco Use Types Packs/Day Years [...] filedocumented in this encounter Care Teams Telephone Sex Worker Relationship Specialty Start Date End Date Mary Alice Cage APRN PCP - General 10/12/11 11/12/18 documented as of this encounter
--- OUTSIDE RECORDS SUMMARY | 2024-06-15 10:36 | XMS_ITS | Encounter Summary ---
[place] [address] Care Team Providers Care Clam Dredge Boat Captain Name Role Phone Mary Alice Cage APRN Primary Care Provider [phone] Reason for Visit * Reason Onset Date Comments Other 09/26/2012 put in and call pt for referral Encounter Details Date Type Department Care Team (Late st Contact Info) Description 09/26/2012 Telephone [place] [address] Ashanti Talley RN Other (put [...] on filedocumented in this encounter Care Teams Clam Dredge Boat Captain Relationship Specialty Start Date End Date Mary Alice Cage APRN PCP - General 10/12/11 11/12/18 documented as of this encounter
--- OUTSIDE RECORDS SUMMARY | 2024-06-15 10:36 | XMS_ITS | Encounter Summary ---
[place] [address] Care Team Providers Care Psychologist Military Personnel Name Role Phone NessMary Alice davis Rajendra ROY Primary Care Provider [phone] Reason for Visit * Reason Onset Date Comments Other 07/10/2012 assess GI Encounter Details Date Type Department Care Team (Late st Contact Info) Description 07/10/2012 Telephone [place] [address] Ashanti Talley RN Other (assess GI) Social [...] on filedocumented in this encounter Care Teams Psychologist Military Personnel Relationship Specialty Start Date End Date Mary Alice Cage APRN PCP - General 10/12/11 11/12/18 documented as of this encounter
--- OUTSIDE RECORDS SUMMARY | 2024-06-15 10:36 | XMS_ITS | Encounter Summary ---
Author Organization [facility] [place] [address] Care Team Providers Care Mica Patcher Name Role Phone Mary Alice Cage APRN Primary Care Provider [phone] Reason for Visit * Reason Onset Date Comments Medication Refill 08/19/2012 Encounter Details Date Type Department Care Team (Late st Contact Info) Description 08/19/2012 Refill [place] [address] Malia Vidal SMALL BUSINESS SALES REPRESENTATIVE [facility] DR [place] [address] Social History Tobacco Use Types Packs/Day Years [...] on filedocumented in this encounter Care Teams Mica Patcher Relationship Specialty Start Date End Date Mary Alice Cage APRN PCP - General 10/12/11 11/12/18 documented as of this encounter
--- OUTSIDE RECORDS SUMMARY | 2024-06-15 10:36 | XMS_ITS | Encounter Summary ---
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
--- OUTSIDE RECORDS SUMMARY | 2024-06-15 10:36 | XMS_ITS | Encounter Summary ---
[place] [address] Care Team Providers Care Electro Optical Engineer Name Role Phone Mary Alice Cage APRN Primary Care Provider [phone] Reason for Visit * Reason Onset Date Comments Medication Refill 03/05/2012 Encounter Details Date Type Department Care Team (Late st Contact Info) Description 03/05/2012 Ref[place] [address] Ashanti Talley RN Social History Tobacco Use [...] on filedocumented in this encounter Care Teams Electro Optical Engineer Relationship Specialty Start Date End Date Mary Alice Cage APRN PCP - General 10/12/11 11/12/18 documented as of this encounter
--- OUTSIDE RECORDS SUMMARY | 2024-06-15 10:36 | XMS_ITS | Encounter Summary ---
Author Organization [facility] [place] [address] Care Team Providers Care Powerhouse Electrician Apprentice Name Role Phone [place]iles Mary Alicepham Drew APRN Primary Care Provider [phone] Reason for Visit * Reason Comments Follow-up Bloody noses once in a while Encounter Details Date Type Department Care Team (Late st Contact Info) Description 10/23/2012 9:45 AM EDT Follow-[place] [address] Samra Goodson WINDOWS INFRASTRUCTURE ENGINEER [facility] [place] [address] Rhinitis (Primary Dx) Discharge Disposition: Home Social [...] this encounter Progress Notes * Samra Goodson, WINDOWS INFRASTRUCTURE ENGINEER - 10/23/2012 10:16 AM EDT Date of Visit:10/23/2012 Location of Visit: Otolaryngology Clinic, [facility] Patient: Poppy Mclaughlin 1960, [id number] Chief Complaint: Poppy is a 51 year [...] Return to clinic as needed. Samra WORKMAN [facility] Otolaryngology-Head and Neck Surgery [place], [place] [address] documented in this encounter Plan of Treatment Not on file documented as of this encounter Visit Diagnoses Diagnosis Rhinitis- Primary Chronic rhinitis documented in this encounter Care Teams Powerhouse Electrician Apprentice Relationship Specialty Start Date End Date Mary Alice Cage APRN PCP - General 10/12/11 11/12/18 documented as of this encounter
--- OUTSIDE RECORDS SUMMARY | 2024-06-15 10:37 | XMS_ITS | Encounter Summary ---
Author [facility] [address] Care Team Providers Care University Extension Specialist Name Role Phone BlairMary Alice davis Rajendra ROY Primary Care Provider [phone] Encounter Details Date Type Department Care Team (Latest Contact Info) Description 02/04/2012 8:05 AM EDT - 02/04/2012 11:59 PM EDT Hospital [place] [address] Abdominal distention Social History Tobacco Use Types [...] 02/04/2012 08:37 am) Patient Info ID: ? [id number] ? : [birth year] (51 yrs) Name: ? POPPY PINO ? Visit Date: 02/04/2012 08:29 am Performed By Performed By: ?Lashawn Daniel RDMS Attending: ? Lucretia Calvillo MD Referred By: ? LETTY WORKMAN Service(s) Provided UABDLIM - Abdominal Limited Survey Single ? 54299 Organ or Quadrant - [id number] Indications Chronic Abdominal Distention, ? gallbladder issues [...] Final 02/04/2012 08:37 am) Patient Info ID: [id number] : [birth year] (51 yrs) Name: POPPY PINO Visit Date: 02/04/2012 08:29 am Performed By Performed By: Lashawn Daniel RDMS Attending: Lucretia Calvillo MD Referred By: LETTY WORKMAN Service(s) Provided UABDLIM - Abdominal Limited Survey Single 24692 Organ or Quadrant - [id number] Indications Chronic Abdominal Distention, ? gallbladder issues [...] pain documented in this encounter Care Teams University Extension Specialist Relationship Specialty Start Date End Date Mary Alice Cage, MANUELA PCP - General 10/12/11 11/12/18 documented as of this encounter
--- OUTSIDE RECORDS SUMMARY | 2024-06-15 10:37 | XMS_ITS | Encounter Summary ---
Author Organization [facility] [place] [address] Care Team Providers Care Footwear Stitcher Name Role Phone Mary Alice Cage MANUELA Primary Care Provider [phone] Encounter Details Date Type Department Care Team (Latest Contact Info) Description 12/11/2011 9:10 AM EDT - 12/11/2011 11:59 PM EDT Hospital Encounter [place] [address] CLINIC, DR MATEUSZ Keller, Osmany Overton MD [facility] [place] [address] Dyspepsia Discharge Disposition: Home Social History Tobacco [...] was drawn around the stomach and then gfayo-gcpakefsuaudm-gjvjamzc plotted. FINDINGS: Activity is initially seen within [...] stomach documented in this encounter Care Teams Footwear Stitcher Relationship Specialty Start Date End Date Mary Alice Cage APRN PCP - General 10/12/11 11/12/18 documented as of this encounter
--- OUTSIDE RECORDS SUMMARY | 2024-06-15 10:37 | XMS_ITS | Encounter Summary ---
[place] [address] Care Team Providers Care Shoe Laster Name Role Phone Mary Alice Cage APRN Primary Care Provider [phone] Reason for Visit * Reason Onset Date Comments Other 11/19/2011 Encounter Details Date Type Department Care Team (Late st Contact Info) Description 11/19/2011 Telephone [place] [address] Lucia Cui Other Social History Tobacco Use [...] on filedocumented in this encounter Care Teams Shoe Laster Relationship Specialty Start Date End Date Mary Alice Cage APRN PCP - General 10/12/11 11/12/18 documented as of this encounter
--- OUTSIDE RECORDS SUMMARY | 2024-06-15 10:37 | XMS_ITS | Encounter Summary ---
[place] [address] Care Team Providers Care Powder Blender And Pourer Name Role Phone Niles Mary Alicepham Drew APRN Primary Care Provider [phone] Reason for Visit * Reason Onset Date Comments Other 12/18/2011 test results Encounter Details Date Type Department Care Team (Late st Contact Info) Description 12/18/2011 Telephone [place] [address] Bhavani Knowles RN Other (test results) Social [...] on filedocumented in this encounter Care Teams Powder Blender And Pourer Relationship Specialty Start Date End Date Mary Alice Cage APRN PCP - General 10/12/11 11/12/18 documented as of this encounter
--- OUTSIDE RECORDS SUMMARY | 2024-06-15 10:37 | XMS_ITS | Encounter Summary ---
[place] [address] Care Team Providers Care Assembly Repairer Name Role Phone HolmesMary Alice davis MANUELA Primary Care Provider [phone] Reason for Visit * Reason Onset Date Comments Other 12/27/2011 wedge pillow Encounter Details Date Type Department Care Team (Late st Contact Info) Description 12/27/2011 Telephone [place] [address] Bhavani Knowles RN Other (wedge pillow) Social [...] RN - 12/27/2011 9:48 AM EDT Called [employer] at [phone] to order a wedge pillow for the patient. [employer] veterans employment representative states the pillow will not be [...] are available and GI clinic phone number: [phone]. documented in this encounter Plan of Treatment Not on file documented as of this encounter Visit Diagnoses Not on filedocumented in this encounter Care Teams Assembly Repairer Relationship Specialty Start Date End Date Mary Alice Cage APRN PCP - General 10/12/11 11/12/18 documented as of this encounter
--- OUTSIDE RECORDS SUMMARY | 2024-06-15 10:37 | XMS_ITS | Encounter Summary ---
Author Organization [facility] Address [address] [place] [address] Care Team Providers Care Early Childhood Services Coordinator Name Role Phone Demar Rabago PA-C Primary Care Provider + Encounter Details Date Type Department Care Team ([facility] st Contact Info) Description 05/13/2019 Results Only [facility] [phone] Demar Rabago PA-C [address] [place] [address] Social History Tobacco Use Types Packs/Day Years [...] ? AGGIE PINOE ? Accession #: ? [id number] ? : ? 1960 (Age: 58) ??F [...] types 16,18,31,33,35, 39,45,51,52,56,58, 59,66, and 70 by press tender incendiary grenade mediated amplification. Comments Document reviewed and electronically signed by: ? System Interface ? Report date: 05/19/2019 By the signature above, the attending physician certifies that he/she has personally conducted a gross and/or microscopic examination of the described specimens and rendered or confirmed the above diagnosis. End of Report [facility] 05/13/2019 05/15/2019 Demar Rabago PA-C PATHOLOGY ORDERA KAYLEY [facility] [address] [place] [address] documented in this encounter Visit Diagnoses Not on filedocumented in this encounter Care Teams Early Childhood Services Coordinator Relationship Specialty Start Date End Date Demar Rabago PA-C [address] [place] [phone] PCP - General 04/24/16 documented as of this encounter
--- OUTSIDE RECORDS SUMMARY | 2024-06-15 10:37 | XMS_ITS | Encounter Summary ---
[place] [address] Care Team Providers Care Director Mission Name Role Phone Mary Alice Cage APRN Primary Care Provider [phone] Reason for Visit * Reason Onset Date Comments Other 12/24/2011 Aciphex and Wedg e Encounter Details Date Type Department Care Team (Late st Contact Info) Description 12/24/2011 Tele[place] [address] Bhavain Knowles RN Other (Aciphex and Wedge) Social [...] filedocumented in this encounter Care Teams Director Mission Relationship Specialty Start Date End Date Mary Alice Cage APRN PCP - General 10/12/11 11/12/18 documented as of this encounter
--- OUTSIDE RECORDS SUMMARY | 2024-06-15 10:37 | XMS_ITS | Encounter Summary ---
[place] [address] Care Team Providers Care Lacquer Sprayer Name Role Phone Mary Alice Cage APRN Primary Care Provider [phone] Reason for Visit * Reason Onset Date Comments Other 12/03/2011 appointment Encounter Details Date Type Department Care Team (Late st Contact Info) Description 12/03/2011 Tele[place] [address] Bhavani Knowles RN Other (appointment) Social History [...] address. Patient was connected to GI chief [employer] division to be scheduled for the above mentioned [...] on filedocumented in this encounter Care Teams Lacquer Sprayer Relationship Specialty Start Date End Date Mary Alice Cage APRN PCP - General 10/12/11 11/12/18 documented as of this encounter
--- OUTSIDE RECORDS SUMMARY | 2024-06-15 10:37 | XMS_ITS | Encounter Summary ---
[place] [address] Care Team Providers Care Splicing Machine Operator Automatic Name Role Phone Mary Alice Domingo APRN Primary Care Provider [phone] Encounter Details Date Type Department Care Team (Latest Contact Info) Description 02/04/2012 10:00 AM EDT Procedure [place] [address] CLINIC, Mary Alice Garcia, RN Nutcracker esophagus [...] DATE: 02/04/2012 PROVIDER: [place] ([id number]) INDICATION Slow passage of food, belching, regurgitation, bloating. METHODS Stationary esophageal manometry was performed with the Sunsea esophageal motility system utilizing the Communicado software with a 4-channel solid-state motility probe. [...] than 185 mmHg Justin Starkey, PhD, MD mobile architect Section of Gastroenterology and Hepatology [facility] [place] [place] [address] V: [phone] F: [phone] MICKY/mian CC/EC: ANALI Vidal APRN * Mary Alice Galvan RN - 02/04/2012 9:37 AM EDT Esophageal manometry performed without difficulty and was well tolerated. Discharged from lab without voiced concerns. 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
--- OUTSIDE RECORDS SUMMARY | 2024-06-15 10:37 | XMS_ITS | Encounter Summary ---
Author Organization [facility] Address [address] [place] [address] Care Team Providers Care Icu Registered Nurse Name Role Phone Erika Saavedra MD Primary Care Provider [phone] Encounter Details Date Type Department Care Team (Late st Contact Info) Description 04/17/2016 Results Only [facility] [phone] Carmella Aguilera, [address] [place] [address] Social History Tobacco Use Types Packs/Day Years [...] ? POPPY PINO ? Accession #: ? [id number] ? : ? 1960 (Age: 55) ??F [...] (ASCP) 04/20/2016 9:17 AM End of Report [facility] 04/17/2016 21:0 6 EDT 04/19/2016 21:06 EDT Carmella Aguilera DO PATHOLOGY ORDER DAMARIS [facility] [address] [place] [address] documented in this encounter Visit Diagnoses Not on filedocumented in this encounter Care Teams Icu Registered Nurse Relationship Specialty Start Date End Date Erika Saavedra MD [address] [place] [address] PCP - General 09/27/11 04/23/16 documented as of this encounter
--- OUTSIDE RECORDS SUMMARY | 2024-06-15 10:37 | XMS_ITS | Encounter Summary ---
[place] [address] Care Team Providers Care Block Handler Name Role Phone DoughertyMary Alice davis MANUELA Primary Care Provider [phone] Reason for Visit * Reason Onset Date Comments Other 11/30/2011 Encounter Details Date Type Department Care Team (Late st Contact Info) Description 11/30/2011 Telephone [place] [address] Adelaida Walker Other Social History Tobacco Use [...] like to have them here. Unfortunately This placement secretary could not find the appointments suggested. Pt also noted that she has called previous to this to have her [facility] unfortunately this is [...] filedocumented in this encounter Care Teams Block Handler Relationship Specialty Start Date End Date Mary Alice Cage APRN PCP - General 10/12/11 11/12/18 documented as of this encounter
--- OUTSIDE RECORDS SUMMARY | 2024-06-15 10:37 | XMS_ITS | Encounter Summary ---
Author Organization [facility] [place] [address] Care Team Providers Care Reconciliation Coordinator Name Role Phone Mary Alice Cage MANUELA Primary Care Provider [phone] Reason for Visit * Reason Comments GI Problem Encounter Details Date Type Department Care Team (Late st Contact Info) Description 11/09/2011 12:00 PM EDT Office [place] [address] [facility] [place] [address] Abdominal pain (Primary Dx) Discharge Disposition: Home [...] GI issues. Symptoms began late last summer. [place] like she had pulled her abdominal muscles. [...] celiac. Over 60 minutes spent in direct ujli-fm-judx discussion of symptoms and planning further management. [...] site documented in this encounter Care Teams Reconciliation Coordinator Relationship Specialty Start Date End Date Mary Alice Cage, MANUELA PCP - General 10/12/11 11/12/18 documented as of this encounter
--- OUTSIDE RECORDS SUMMARY | 2024-06-15 10:37 | XMS_ITS | Encounter Summary ---
[place] [address] Care Team Providers Care Production Checker Name Role Phone NilesCariepham Drew APRN Primary Care Provider [phone] Reason for Visit * Reason Onset Date Comments Prior Authorization 12/24/2011 Dexilant Encounter Details Date Type Department Care Team (Late st Contact Info) Description 12/24/2011 Telephone [place] [address] Debbie Skinner RNcancer registrar (Dexilant) Social History Tobacco Use Types Packs/Day [...] Phone#: Insurance & Phone #: [employer] [phone] ID #: [id number] Trialed (dosage, frequency): Approved medications: Next Step: Notes: PA denied-pt needs to have a trial of Aciphex. Would you like me to go ahead and order that? documented in this encounter Plan of Treatment Not on file documented as of this encounter Visit Diagnoses Not on filedocumented in this encounter Care Teams Production Checker Relationship Specialty Start Date End Date Mary Alice Cage APRN PCP - General 10/12/11 11/12/18 documented as of this encounter
--- OUTSIDE RECORDS SUMMARY | 2024-06-15 10:37 | XMS_ITS | Encounter Summary ---
Author Organization [facility] [place] [address] Care Team Providers Care Hogshead Builder Name Role Phone TravisMary Alice davis Rajendra ROY Primary Care Provider Encounter Details Date Type Department Care Team (Late st Contact Info) Description 12/21/2011 Orders [place] [address] Letty Vidal APRN [facility] [address] [place] [address] Abdominal distention (Primary Dx) Social History Tobacco [...] 02/04/2012 08:37 am) Patient Info ID: ? [id number] ? : ??[birth year] (51 yrs) Name: ? POPPY PINO ? Visit Date: 02/04/2012 08:29 am Performed By Performed By: ?Lashawn Daniel RDMS Attending: ? Karli TERRELL, Lucretia Lion Referred By: ? LETTY WORKMAN Service(s) Provided UABDLIM - Abdominal Limited Survey Single ? 37340 Organ or Quadrant - [id number] Indications Chronic Abdominal Distention, ? gallbladder issues [...] Final 02/04/2012 08:37 am) Patient Info ID: [id number] : [birth year] (51 yrs) Name: POPPY PINO Visit Date: 02/04/2012 08:29 am Performed By Performed By: Lashawn Daniel RDMS Attending: Lucretia Calvillo MD Referred By: LETTY WORKMAN Service(s) Provided UABDLIM - Abdominal Limited Survey Single 19639 Organ or Quadrant - [id number] Indications Chronic Abdominal Distention, ? gallbladder issues [...] pain documented in this encounter Care Teams Hogshead Builder Relationship Specialty Start Date End Date Mary Alice Cage APRN PCP - General 10/12/11 11/12/18 documented as of this encounter
--- OUTSIDE RECORDS SUMMARY | 2024-06-15 10:37 | XMS_ITS | Encounter Summary ---
Author Organization [facility] Address [address] [place] [address] Care Team Providers Care Nutrition Teacher Name Role Phone Radha Gan MD Primary Care Provider [phone] Encounter Details Date Type Department Care Team (Late st Contact Info) Description 11/28/2011 Results Only [facility] [phone] Radha Gan MD [address] [place], [place] [id number] Social History Tobacco Use Types Packs/Day Years [...] ? AGGIE PINOE ? Accession #: ? [id number] ? : ? 1960 (Age: 51) ??F ? Collect Date: ? 11/28/2011 ? Location: ? [facility] ? Receive Date: ? 11/29/2011 ? Provider: RADHA GAN MD Copy to: ? Final Pathologic Diagnosis: ? Skin of gluteal cleft, right, shave biopsy: - Condyloma acuminatum. ??See comment. Comment: ? Dr. Jeff Cardenas has reviewed this case and concurs with the diagnosis. (Dr. Salmon)/[facility] Microscopic Description: ? There is orthohyperkeratosis with foci of parakeratosis. ??The epidermis is acanthotic with low papillomatosis and anastomosing rete ridges. ??The superficial keratinocytes show variable degrees of perinuclear vacuolization and nuclear hyperchromasia. ??(Dr. Salmon)/[facility] Document reviewed and electronically signed by: ZAYRA [...] Gan MD PATHOLOGY ORDERABLES Performing Organization Address City/State/[facility] Co de Phone Number IRASEMA SANCHEZ [address] [place] [address] documented in this encounter Visit Diagnoses Not on filedocumented in this encounter Care Teams Nutrition Teacher Relationship Specialty Start Date End Date Radha Gan MD [address] [place] [address] PCP - General 09/27/11 04/23/16 documented as of this encounter
--- OUTSIDE RECORDS SUMMARY | 2024-06-15 10:37 | XMS_ITS | Encounter Summary ---
[place] [address] Care Team Providers Care Athletic Gear Custodian Name Role Phone MoultrieMary Alice davis MANUELA Primary Care Provider [phone] Reason for Visit * Reason Onset Date Comments Other 12/03/2011 Celiac Disease, tTG Encounter Details Date Type Department Care Team (Late st Contact Info) Description 12/03/2011 Telephone [place] [address] Bhavani Knowles RN Other (Celiac Disease, tTG) [...] filedocumented in this encounter Care Teams Athletic Gear Custodian Relationship Specialty Start Date End Date Mary Alice Cage APRN PCP - General 10/12/11 11/12/18 documented as of this encounter
--- OUTSIDE RECORDS SUMMARY | 2024-06-15 10:37 | XMS_ITS | Clinical Summary ---
Author Organization [facility] Address [address] [place] [address] Care Team Providers Care Manager Supply Name Role Phone Cb Florence PA-C Primary [...] COVID-19 Vaccine (2022-24 season) 2023 Care Teams Manager Supply Relationship Specialty Start Date End Date Cb Florence PA-C [address] [place] [address] PCP - General 04/24/16
--- OUTSIDE RECORDS SUMMARY | 2024-06-15 10:37 | XMS_ITS | Encounter Summary ---
[place] [address] Care Team Providers Care Social Work Administrator Name Role Phone AudubonMary Alice davis Rajendra ROY Primary Care Provider [phone] Reason for Visit * Reason Onset Date Comments Other 12/20/2011 Abdominal disten tion Encounter Details Date Type Department Care Team (Late st Contact Info) Description 12/20/2011 Telephone [place] [phone] Bhavani Knowles RN Other (Abdominal distention) Social [...] on filedocumented in this encounter Care Teams Social Work Administrator Relationship Specialty Start Date End Date Mary Alice Cage APRN PCP - General 10/12/11 11/12/18 documented as of this encounter
--- OUTSIDE RECORDS SUMMARY | 2024-06-15 10:37 | XMS_ITS | Encounter Summary ---
Author Organization [facility] Address [address] [place] [address] Care Team Providers Care Income Tax Return Preparer Name Role Phone Unknown, Provider Primary Care Provider Unava ilable Encounter Details Date Type Department Care Team (Late st Contact Info) Description 09/21/2011 Results Only [facility] [phone] Raghu Figueroa, DO [address] [facility] [place] [address] Social History Tobacco Use Types [...] ? AGGIE PINOE ? Accession #: ? [id number] ? : ? 1960 (Age: 51) ??F [...] Brand who agrees with the diagnosis. ??(Dr. Malloy)/max Document reviewed and electronically signed by: [place] [...] specimen is entirely submitted as (D). (Thomas Connolly)/[facility] End of Report IRASEMA SANCHEZ 09/21/2011 09/21/2011 11: 16 EST Raghu Figueroa DO PATHOLOGY ORDERABLES Performing Organization Address City/State/[facility] Co de Phone Number [facility] [address] [place] [address] documented in this encounter Visit Diagnoses Not on filedocumented in this encounter Care Teams Income Tax Return Preparer Relationship Specialty Start Date End Date Unknown, Provider, PCP - General 09/24/11 09/26/11 documented as of this encounter
--- OUTSIDE RECORDS SUMMARY | 2024-06-15 10:37 | XMS_ITS | Encounter Summary ---
[place] [address] Care Team Providers Care Africana Studies Professor Name Role Phone Mary Alice Cage MANUELA Primary Care Provider [phone] Reason for Visit * Reason Onset Date Comments Other 12/21/2011 PREFERRED [facility] Encounter Details Date Type Department Care Team (Late st Contact Info) Description 12/21/2011 Telephone [place] [address] Bhavani Knowles RN Other (PREFERRED PHARMACY) Social [...] preferred pharmacy. Patient was connected to GI Formula Clerk, so she can get scheduled for an abdominal ultrasound. documented in this encounter Plan of Treatment Not on file documented as of this encounter Visit Diagnoses Not on filedocumented in this encounter Care Teams Africana Studies Professor Relationship Specialty Start Date End Date Mary Alice Cage APRN PCP - General 10/12/11 11/12/18 documented as of this encounter
--- OUTSIDE RECORDS SUMMARY | 2024-06-15 10:37 | XMS_ITS | Encounter Summary ---
Author Organization [facility] [place] [address] Care Team Providers Care Industrial Trainer Name Role Phone Mary Alice Cage APRN Primary Care Provider [phone] Reason for Visit * Reason Onset Date Comments Medication Refill 12/21/2011 Encounter Details Date Type Department Care Team (Late st Contact Info) Description 12/21/2011 Ref[place] [address] Malia Vidal CONTRACT MAIL CARRIER [facility] DR GASTROENTER[place] [address] Social History Tobacco Use Types Packs/Day Years [...] filedocumented in this encounter Care Teams Industrial Trainer Relationship Specialty Start Date End Date Mary Alice Cage APRN PCP - General 10/12/11 11/12/18 documented as of this encounter
--- OUTSIDE RECORDS SUMMARY | 2024-06-15 10:37 | XMS_ITS | Encounter Summary ---
[place] [address] Care Team Providers Care Employee Representative Name Role Phone Mary Alice Cage APRN Primary Care Provider [phone] Reason for Visit * Reason Onset Date Comments Other 01/03/2012 fatty liver Encounter Details Date Type Department Care Team (Late st Contact Info) Description 01/03/2012 Telephone [place] [address] Bhavani Knowles RN Other (fatty liver) Social History Tobacco Use Types Packs/Day Years Used Date Smoking Tobacco: Every Day Cigarettes Smokeless Tobacco: Never Sex and Gender Information Value Date Recorded Sex Assigned at Not on file Gender Identity Not on file Sexual Orientation Not on file documented as of this encounter Miscellaneous Notes * Telephone Encounter - Bhvaani Knowles RN - 01/03/2012 8:36 AM EDT [...] phone and with GI clinic phone number: [phone]. documented in this encounter Plan of Treatment Not on file documented as of this encounter Visit Diagnoses Not on filedocumented in this encounter Care Teams Employee Representative Relationship Specialty Start Date End Date Mary Alice Cage APRN PCP - General 10/12/11 11/12/18 documented as of this encounter
--- OUTSIDE RECORDS SUMMARY | 2024-06-15 10:37 | XMS_ITS | Referral Summary ---
Author Organization [facility] Address [address] [place] [address] Care Team Providers Care Security Operations Analyst Name Role Phone Cb Florence PA-C Primary Care Provider + Social History Tobacco Use Types Packs/Day Years Used Date Smoking Tobacco: Never Assessed Sex and Gender Information Value Date Recorded Sex Assigned at Not on file Gender Identity Not on file Sexual Orientation Not on file Plan of Treatment Not on file Care Teams Security Operations Analyst Relationship Specialty Start Date End Date Cb Florence PA-C [address] [place] [address] PCP - General 04/24/16
--- OUTSIDE RECORDS SUMMARY | 2024-06-15 10:37 | XMS_ITS | Encounter Summary ---
Author Organization [facility] [place] [address] Care Team Providers Care Station Mechanic Name Role Phone [place]-HyderMary Alice davis MANUELA Primary Care Provider [phone] Encounter Details Date Type Department Care Team (Late st Contact Info) Description 12/27/2011 7:00 AM EDT Follow-[place] [address] Malia Vidal APRN [facility] [place] [address] Abdominal pain, other specified site; GERD (gastroesophageal [...] scan normal. Pt had abdominal u/s at [facility], normal. Pt had ttg, at [facility], will need to obtain. Per pt test was negative. Upper endoscopy: [facility], overall normal Abdominal/pelvic CT: [facility], normal Colonoscopy: [facility], normal Pt reports frequent belching, regurgitation. Little [...] reflux documented in this encounter Care Teams Station Mechanic Relationship Specialty Start Date End Date Mary Alice Cage APRN PCP - General 10/12/11 11/12/18 documented as of this encounter
--- OUTSIDE RECORDS SUMMARY | 2024-06-15 10:37 | XMS_ITS | Encounter Summary ---
Author Organization [facility] Address [address] [place] [address] Care Team Providers Care Buncher Hand Name Role Phone Erika Saavedra MD Primary Care Provider [phone] Encounter Details Date Type Department Care Team (Latest Contact Info) Description 04/17/2016 11:34 EDT - 04/17/2016 23:59 EDT Hospital Encounter [address] [address] Unknown, Provider, MD Discharge Disposition: Auto Discharge Social History Tobacco [...] on filedocumented in this encounter Care Teams Buncher Hand Relationship Specialty Start Date End Date Erika Saavedra MD [address] [place] [address] PCP - General 09/27/11 04/23/16 documented as of this encounter
--- OUTSIDE RECORDS SUMMARY | 2024-06-15 10:37 | XMS_ITS | Encounter Summary ---
[place] [address] Care Team Providers Care Farmer And Grazier Name Role Phone Mary Alice Cage APRN Primary Care Provider Encounter Details Date Type Department Care Team (Late st Contact Info) Description 12/19/2011 External Results [place] [address] Provider, Scanning Social History Tobacco Use Types [...] on filedocumented in this encounter Care Teams Farmer And Grazier Relationship Specialty Start Date End Date Mary Alice Cage APRN PCP - General 10/12/11 11/12/18 documented as of this encounter
--- OUTSIDE RECORDS SUMMARY | 2024-06-15 10:37 | XMS_ITS | Encounter Summary ---
[place] [address] Care Team Providers Care Radial Drill Operator Name Role Phone WytheMary Alice davis MANUELA Primary Care Provider [phone] Reason for Visit * Reason Onset Date Comments Other 11/27/2011 Request for pain medicine Encounter Details Date Type Department Care Team (Late st Contact Info) Description 11/27/2011 Telephone [place] [address] Bhavani Knowles RN Other (Request for pain [...] ID'd phone with GI clinic phone number: [phone]. Note the following per Dr. Keller's note [...] celiac. Over 60 minutes spent in direct [id number]-am-zmpf discussion of symptoms and planning further management. documented in this encounter Plan of Treatment Not on file documented as of this encounter Visit Diagnoses Not on filedocumented in this encounter Care Teams Radial Drill Operator Relationship Specialty Start Date End Date Mary Alice Cage APRN PCP - General 10/12/11 11/12/18 documented as of this encounter
--- OUTSIDE RECORDS SUMMARY | 2024-06-15 10:37 | XMS_ITS | Encounter Summary ---
Author Organization [facility] [address] Care Team Providers Care Education Paraprofessional Name Role Phone Mary Alice Cage APRN Primary Care Provider Reason for Visit * Reason Onset Date Comments Medication Refill 12/24/2011 Encounter Details Date Type Department Care Team (Late st Contact Info) Description 12/24/2011 [place] [address] Malia Vidal DITCH INSPECTOR [facility] [place] [address] Social History Tobacco Use Types Packs/Day Years [...] on filedocumented in this encounter Care Teams Education Paraprofessional Relationship Specialty Start Date End Date Mary Alice Cage APRN PCP - General 10/12/11 11/12/18 documented as of this encounter
--- OUTSIDE RECORDS SUMMARY | 2024-06-15 10:37 | XMS_ITS | Encounter Summary ---
Author Organization [facility] [address] [place] [address] Care Team Providers Care Pen Tender Name Role Phone GalliaMary Alice davis Rajendra ROY Primary Care Provider [phone] Reason for Visit * Reason Onset Date Comments Medication Refill 12/03/2011 Encounter Details Date Type Department Care Team (Late st Contact Info) Description 12/03/2011 Refill [place] [address] Malia Vidal GARBAGE COLLECTION SUPERVISOR [facility] [place] [address] Dyspepsia (Primary Dx) Social History Tobacco Use [...] was drawn around the stomach and then zncpj-nsjhmmrejsndl-uzuivceg plotted. FINDINGS: Activity is initially seen within [...] stomach documented in this encounter Care Teams Pen Tender Relationship Specialty Start Date End Date Mary Alice Cage APRN PCP - General 10/12/11 11/12/18 documented as of this encounter
--- OUTSIDE RECORDS SUMMARY | 2024-06-15 10:37 | XMS_ITS | Encounter Summary ---
Author Organization [facility] [address] Care Team Providers Care Marketing Operations Consultant Name Role Phone QuitmanMary Alice davis Rajendra ROY Primary Care Provider [phone] Encounter Details Date Type Department Care Team (Late st Contact Info) Description 12/26/2011 Orders Only [place] [address] Abel Carlton MD [facility] [place] [address] Social History Tobacco Use Types Packs/Day Years [...] MD IMG FILM LIBRARY ORD ERABLES RAD [address] [facility] [place] [address] documented in this encounter Visit Diagnoses Not on filedocumented in this encounter Care Teams Marketing Operations Consultant Relationship Specialty Start Date End Date Mary Alice Cage APRN PCP - General 10/12/11 11/12/18 documented as of this encounter
[2024-06-15 15:23] LABS: BUN 17 mg/dL (7-18); CREATININE 1.3 mg/dL (0.55-1.02); Calcium 9.2 mg/dL (8.5-10.1); Chloride 105 mmol/L (98-107); Estimated GFR 46.78 (mL/min/1.73m2); Glucose 106 mg/dL (74-106); Magnesium 1.9 mg/dL (1.8-2.4); Potassium 4.2 mmol/L (3.5-5.1); Sodium 142 mmol/L (136-145)
[2024-06-15 15:54] LABS: COMMENT (LAB VIEW ONLY) 49.89 mg/dL; Microalb ug/mg Crea 11.4 ug/mg Cr
[2024-06-19 05:33] LABS: O-desmethyltramadol 6585 ng/mL (Cutoff:25); Tramadol 6595 ng/mL (Cutoff:25)
== END 2024-06-15 10:25 | disposition home or self-care (01) ==
LOC: NCHCN 10:24
PROVIDERS: PCP Physician Assistant Medical; Visit Provider Physician Assistant Medical
DX: G89.4 Chronic pain syndrome (principal); N18.9 Chronic kidney disease, unspecified
CPT/HCPCS: 80048; 80373; 82043; 82570; 83735

== ENCOUNTER 2024-07-24 00:39 | Outpatient (CLI) | payer MEDICARE, OTHER, MEDICAID, SELFPAY ==
--- NOTE | 2024-07-24 | DI.US_ITS ---
Exam(s) MG MAMMO DIAGNOSTIC UNI US BREAST RT COMPLETE EXAM: MG MAMMO DIAGNOSTIC UNI-RIGHT AND COMPLETE RIGHT BREAST ULTRASOUND CLINICAL HISTORY: ABNL MAMMO R92.8 6 MO FU FROM 01/24/24,RT NODULE. TECHNIQUE: Unilateral right breast CC and MLO mammographic images were obtained with 3D tomosynthesi s technique and utilizing computer aided detection (CAD). COMPLETE RIGHT BREAST ULTRASOUND was also performed including all 4 quadrants as well as the axillary regions. COMPARISON: Prior mammograms were reviewed, the most recent being January 2024. The only mammogram brayn or to was January 2022.. Prior ultrasound of 01/24/2024 was also reviewed. FINDINGS: DIAGNOSTIC RIGHT BREAST MAMMOGRAM: The previously described oval noncalcified nodule is again noted exhibiting minimal if any significan t change compared to the prior mammogram. There are no malignant-appearing microcalcification groups in the right breast. A benign microcalcif ication in the retroareolar region is unchanged. There is no new architectural distortion or skin thickening-retraction. COMPLETE RIGHT BREAST ULTRASOUND: At the 7 o'clock position there is again noted a slightly lobulated wider than taller solid nodule wi th neutral through transmission, again measuring 1.5 x 0.5 cm, unchanged and again having the appeara nce of a probable noncalcified fibroadenoma. At the 12 o'clock position there is a possible similar appearing but slightly smaller wider than tall er slightly lobulated noncalcified solid nodule measuring 9 x 4 mm. Visible on the submitted images but not as convincing on real-time imaging. It exhibits neutral through transmission and may be a 2n d fibroadenoma. There are no other significant focal findings in all 4 quadrants of the right breast. 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 There is also a possible 2nd similar but slightly smaller nodule at the 12 o'clock position of the ri ght breast, possibly another fibroadenoma. Appropriate follow-up, as discussed by myself with the patient today, is to repeat the ultrasound exa m at the time for next yearly mammogram which would be in 6 months from now. The patient was informed of the findings and follow-up recommendations by myself prior to leaving the department today. BI-RADS Category 3 - 6 month - Probably Benign Finding: Recommend follow-up mammography in 6 months Breast Density - Category C - Heterogeneously dense Breast density Category C or D implies that the patient has dense breast tissue. Dense breast tissue can make it harder to find cancer on a mammogram. Dense breast tissue is also associated with an incr eased risk of breast cancer. This information about the result of the mammogram report was provided to the patient to raise their awareness. Use this report when you speak with the patient about their risks for breast cancer, which includes their family history. At that time, you may recommend additional screening tests (Ultrasoun d or MRI) as these tests may add significant information. A negative radiographic report should not delay biopsy if a dominant or clinically suspicious mass is present. Up to ten percent of cancers are not identified on mammography. A negative report may reinforce clinical impression. Adenosis and dense breasts may obscure an underlying neoplasm. False positive reports average 6 to 10%. Patient will receive a letter notifying them of these results.
--- OUTSIDE RECORDS SUMMARY | 2024-07-24 00:47 | XMS_ITS | Encounter Summary ---
[place] [address] Care Team Providers Care Training Director Name Role Phone Cb Florence Primary Care Provider +1- [phone] Reason for Visit * Reason Comments Follow Up Surgery Encounter Details Date Type Department Care Team (Latest Contact Info) Description 08/10/2021 3:40 PM EST Office Visit [facility] [place] [address] Rios Acuna MD [facility] [place] [address] s/p Right L4-5 hemilaminectomy and L4-S1 instrumented [...] of hardware failure or loosening. Assessment/plan: Ms. Mlcaughlin is 2 months out from her revision [...] questions please contact the health managed care manager that requested your imaging first. ? Electronically signed by: Kermit Reyna MD, [facility] ([phone]), at 10/09/2021 11:30 AM Narrative 10/09/2021 11:30 [...] have questions please contactthe health managed care manager that requested your imaging first. Electronically signed by: Kermit Reyna MD, [facility]([phone]), at 10/09/2021 11:30 AM Rios Acuna MD IMG DX ORDERABLES documented in this encounter Visit Diagnoses Diagnosis s/p Right L4-5 hemilaminectomy and L4-S1 instrumented fusion on 07/11/21 (Dr. Acuna) Arthrodesis status s/p Right L4-5 hemilaminectomy and L4-S1 instrumented fusion on 07/11/21 (Dr. Acuna) Arthrodesis status documented in this encounter Care Teams Training Director Relationship Specialty Start Date End Date Cb Florence [address] [place] [address] PCP - General Family Medicine 04/08/20 documented as of this encounter
--- OUTSIDE RECORDS SUMMARY | 2024-07-24 00:47 | XMS_ITS | Encounter Summary ---
Author Organization [facility] [place] [address] Care Team Providers Care Air Filler Name Role Phone Cb Florence Primary Care Provider +1- [phone] Encounter Details Date Type Department Care Team (Late st Contact Info) Description 09/14/2021 Orders [place] [address] Osmany Holloway MD [facility] [place] [address] COPD, moderate; PAH (pulmonary artery hypertension) Social [...] diseases documented in this encounter Care Teams Air Filler Relationship Specialty Start Date End Date Cb Florence PA [address] [place] [address] PCP - General Family Medicine 04/08/20 documented as of this encounter
--- OUTSIDE RECORDS SUMMARY | 2024-07-24 00:47 | XMS_ITS | Encounter Summary ---
[place] [address] Care Team Providers Care Housing Officer Name Role Phone Cb Florence Primary Care Provider +1- [phone] Encounter Details Date Type Department Care Team (Late st Contact Info) Description 07/28/2021 Telephone [facility] [place] [phone] Lucretia Moreno LPN Social History Tobacco Use [...] on filedocumented in this encounter Care Teams Housing Officer Relationship Specialty Start Date End Date Cb Florence PA [address] [place] [address] PCP - General Family Medicine 04/08/20 documented as of this encounter
--- OUTSIDE RECORDS SUMMARY | 2024-07-24 00:47 | XMS_ITS | Encounter Summary ---
[place] [address] Care Team Providers Care Director Zone Name Role Phone Cb Florence Primary Care Provider +1- [phone] Reason for Visit * Reason Onset Date Comments Medication Refill 07/18/2021 Encounter Details Date Type Department Care Team (Late st Contact Info) Description 07/18/2021 Telephone [facility] [place] [address] Chen Valencia, spinner hydraulic Refill Social History Tobacco Use Types Packs/Day [...] filedocumented in this encounter Care Teams Director Zone Relationship Specialty Start Date End Date Cb Florence PA [address] [place] [address] PCP - General Family Medicine 04/08/20 documented as of this encounter
--- OUTSIDE RECORDS SUMMARY | 2024-07-24 00:47 | XMS_ITS | Encounter Summary ---
[place] [address] Care Team Providers Care Whitewasher Name Role Phone Cb Florence Primary Care Provider +1- [phone] Encounter Details Date Type Department Care Team (Late st Contact Info) Description 12/29/2021 Telephone [place] [phone] Regine Child Social History Tobacco Use Types [...] on filedocumented in this encounter Care Teams Whitewasher Relationship Specialty Start Date End Date Cb Florence PA [address] [place], [place] [id number] PCP - General Family Medicine 04/08/20 documented as of this encounter
--- OUTSIDE RECORDS SUMMARY | 2024-07-24 00:47 | XMS_ITS | Encounter Summary ---
Author Organization [facility] [address] Care Team Providers Care Pharmacy Order Entry Technician Name Role Phone Cb Florence Primary Care Provider +1- [phone] Encounter Details Date Type Department Care Team (Latest Contact Info) Description 07/19/2022 4:20 PM EST Office Visit [place] [address] Rios Acuna MD [facility] [address] s/p Right L4-5 hemilaminectomy and L4-S1 instrumented [...] right L4- L5 hemilami with complete facetectomy, [id number] Patient accompanied by: Electric Motor Control Assembler or pocket talker required? no Pain Score [...] indicated she may call Dr. Hartman in [facility]. She has seen him in the [...] status documented in this encounter Care Teams Pharmacy Order Entry Technician Relationship Specialty Start Date End Date Cb Florence PA [address] [place] [address] PCP - General Family Medicine 04/08/20 documented as of this encounter
--- OUTSIDE RECORDS SUMMARY | 2024-07-24 00:47 | XMS_ITS | Encounter Summary ---
[place] [address] Care Team Providers Care Digital Asset Manager Name Role Phone Cb Florence Primary Care Provider +1- [phone] Encounter Details Date Type Department Care Team (Late st Contact Info) Description 07/31/2021 Telephone [facility] [place] [address] Agueda Coker RN Social History Tobacco Use [...] 10:26 AM EST Pt called into the mine motor engineer line and left a message asking if anyone has had the chance to review the photo of her incision. Message routed to the Spine Center nurses. documented in this encounter Plan of Treatment Not on file documented as of this encounter Visit Diagnoses Not on filedocumented in this encounter Care Teams Digital Asset Manager Relationship Specialty Start Date End Date Cb Florence PA [address] [place] [address] PCP - General Family Medicine 04/08/20 documented as of this encounter
--- OUTSIDE RECORDS SUMMARY | 2024-07-24 00:47 | XMS_ITS | Encounter Summary ---
Author Organization [facility] [place] [address] Care Team Providers Care Oracle Manufacturing Consultant Name Role Phone Cb Florence Primary Care Provider +1- [phone] Encounter Details Date Type Department Care Team (Late st Contact Info) Description 07/14/2021 Telephone [place] [phone] Vj Reyes MD [facility] [place] [address] Social History Tobacco Use Types Packs/Day Years [...] Reyes MD - 07/14/2021 5:19 PM EST [facility] pharmacy called because only 26 pills [...] filedocumented in this encounter Care Teams Oracle Manufacturing Consultant Relationship Specialty Start Date End Date Cb Florence PA [address] [place] [address] PCP - General Family Medicine 04/08/20 documented as of this encounter
--- OUTSIDE RECORDS SUMMARY | 2024-07-24 00:47 | XMS_ITS | Encounter Summary ---
Author Organization [facility] [address] Care Team Providers Care Filter Cleaner Name Role Phone Cb Florence Primary Care Provider +1- [phone] Reason for Visit * Auth/Cert Specialty Diagnoses [...] Expiration Date Visits Re quested Visits Authorized [id number] 1 Encounter Details Date Type Department Care Team (Latest Contact Info) Description 07/11/2021 8:15 AM EST Laboratory Appointment Lab [address] [place] [address] Spondylolisthesis of lumbar region; Pain in extremity, [...] Pathologist [facility] T&S only valid at [facility] LABORATORY Comment:This Type and Screen result is only valid at the [facility] Blood 07/11/2021 9:01 AM EST 07/11/2021 9:07 AM EST Narrative Resulting Agency Comment Spec In Lab Rios Acuna MD BLOOD BANK LAB ORDER DAMARIS [facility] [place] [address] * ABORH Recheck Status (07/11/2021 9:01 AM EST) [facility] ABORH Type Recheck Completed [facility] Blood 07/11/2021 9:01 AM EST 07/11/2021 9:07 AM EST Narrative Resulting Agency Comment Spec In Lab Rios Acuna MD BLOOD BANK LAB ORDER DAMARIS Performing Organization Address City/[facility]/ZIP Co de Phone Number [facility] [place] [place] [address] * (ABNORMAL) Differential, Automated (07/11/2021 9:01 AM EST) [facility] Neutrophil % 52.5 % [facility] Neutrophil Absolute 4.89 1.70 - 6.10 x10(3)/mc L [facility] Lymph % 38.5 % [facility] Lymphocytes Abs 3.6(H) 0.9 - 3.2 x10(3)/mc L [facility] Monocyte % 5.3 % [facility] Monocyte Abs 0.5 0.3 - 0.9 x10(3)/mc L [facility] Eos % 3.1 % [facility] Eosinophils Abs 0.3 0.0 - 0.4 x10(3)/mc L [facility] Basophil % 0.5 % [facility] Baso Absolute 0.0 0.0 - 0.1 x10(3)/ L [facility] Immature Gran % 0.10 % [facility] Comment: Immature granulocytes(IG's)percentage and absolute count will include metamyelocytes, myelocytes, and promyelocytes. Blood smears from CBCs yielding IG's will be scanned manually for concordance. If this scan disagrees with the automated IG or if promyelocytes are noted, a manual differential will be performed. Immature Gran Absolute 0.01 0.00 - 0.04 x10(3)/ L [facility] Blood 07/11/2021 9:01 AM EST 07/11/2021 9:10 AM EST Narrative Resulting Agency Comment Spec In Lab Rios Acuna MD HEMATOLOGY ORDERABLE S Performing Organization Address City/State/[facility] Co de Phone Number [facility] [place] [address] * (ABNORMAL) Hemogram (07/11/2021 9:01 AM EST) White Blood Cell 9.3 4.0 - 9.5 x10(3)/[facility] LABORATORY Red Blood Cell 4.26 4.00 - 5.21 x10(6)/ L [facility] Hemoglobin 12.6 11.7 - 15.5 g/dL [facility] Hematocrit 39.7 35.7 - 45.8 % [facility] Mean Cell Volume 93.2 82.6 - 94.[address] [facility] Mean Cell Hemoglobin 29.6 27.1 - 32.[address] [facility] Mean Cell Hemoglobin Concentration 31.7 31.7 - 35.0 g/dL [facility] Platelet 207 145 - 357 x10(3)/ L [facility] RDW Standard Deviation 46.5(H) 37.0 - 46.[address] [facility] RDW coefficient of variation 13.7 11.5 - 14.1 % [facility] Mean Platelet Volume 11.1 7.6 - 12.[address] [facility] NRBC% auto 0.0 % [facility] NRBC Absolute 0.000 0.000 - 0.000 x10(3)/mc L [facility] Blood 07/11/2021 9:01 AM EST 07/11/2021 9:10 AM EST Narrative Resulting Agency Comment Spec In Lab Rios Acuna MD HEMATOLOGY ORDERABLE S Performing Organization Address City/[facility]/ZIP Co de Phone Number [facility] [place] [address] * Antibody screen (07/11/2021 9:01 AM EST) Ab Screen Interp Negative [facility] Expires at [id number] on: 07/14/2021 [facility] Blood 07/11/2021 9:01 AM EST 07/11/2021 9:07 AM EST Narrative Resulting Agency Comment Spec In Lab Rios Acuna MD BLOOD BANK LAB ORDER DAMARIS Performing Organization Address City/[facility]/ZIP Co de Phone Number [facility] [place] [place] [address] * ABO/Rh Typing (07/11/2021 9:01 AM EST) ABORH Type A Pos [facility] Blood 07/11/2021 9:01 AM EST 07/11/2021 9:07 AM EST Narrative Resulting Agency Comment Spec In Lab Rios Acuna MD BLOOD BANK LAB ORDER DAMARIS Performing Organization Address City/[facility]/ZIP Co de Phone Number [facility] [place] [address] * (ABNORMAL) Basic Metabolic Panel (non-fasting) (07/11/2021 9:01 AM EST) Glucose 84 65 - 199 mg/dL [facility] Comment:Diabetes: >=200 mg/d L plus symptoms Blood Urea Nitrogen 22(H) 8 - 18 mg/dL [facility] Creatinine 1.26(H) 0.70 - 1.20 mg/dL [facility] Sodium 141 135 - 145 mmol/L [facility] Potassium 3.9 3.5 - 5.0 mmol/L [facility] Comment: Please note: ??Patients with WBC >100,000 may have falsely elevated Potassium levels. ??For accurate Potassium quantification in these patients send serum separator tube (gold top) for subsequent determinations. ??Contact the Clinical Chemistry Laboratory if there are any questions. Chloride 104 98 - 107 mmol/L [facility] Carbon Dioxide 26 22 - 31 mmol/L [facility] Anion Gap 11 5 - 15 mmol/L [facility] Calcium 9.7 8.5 - 10.5 mg/dL [facility] Est Glomerular Filtration Rate 47(L) >=60 mL/min/1. 73 m?? [facility] Comment: This patient? s estimated [...] In Lab Rios Acuna MD CHEMISTRY ORDERABLES [facility] [place] [place] [address] * Prothrombin Time (07/11/2021 9:01 AM EST) Prothrombin Time 11.2 9.4 - 12.[address] [facility] International Normalization Ratio 1.[address] [facility] Comment: An INR <2.0 indicates [...] Lab Rios Acuna MD HEMATOLOGY ORDERABLE S [facility] [place] [address] documented in this encounter Visit Diagnoses Diagnosis Spondylolisthesis of lumbar region Acquired spondylolisthesis Pain in extremity, unspecified extremity documented in this encounter Care Teams Filter Cleaner Relationship Specialty Start Date End Date Cb Florence PA [address] [place] [address] PCP - General Family Medicine 04/08/20 documented as of this encounter
--- OUTSIDE RECORDS SUMMARY | 2024-07-24 00:47 | XMS_ITS | Encounter Summary ---
[place] [address] Care Team Providers Care Legal Assistant Name Role Phone Cb Florence Primary Care Provider +1- [phone] Reason for Visit * Reason Onset Date Comments Medication Refill 07/20/2021 Encounter Details Date Type Department Care Team (Late st Contact Info) Description 07/20/2021 Refill [facility] [place] [phone] Chen Valencia, RN Social History Tobacco Use [...] on filedocumented in this encounter Care Teams Legal Assistant Relationship Specialty Start Date End Date Cb Florence PA [address] [place] [address] PCP - General Family Medicine 04/08/20 documented as of this encounter
--- OUTSIDE RECORDS SUMMARY | 2024-07-24 00:47 | XMS_ITS | Encounter Summary ---
[place] [address] Care Team Providers Care Quantitative Research Analyst Name Role Phone Cb Florence Primary Care Provider +1- [phone] Encounter Details Date Type Department Care Team [...] on filedocumented in this encounter Care Teams Quantitative Research Analyst Relationship Specialty Start Date End Date Cb Florence PA [address] [place] [address] PCP - General Family Medicine 04/08/20 documented as of this encounter
--- OUTSIDE RECORDS SUMMARY | 2024-07-24 00:47 | XMS_ITS | Encounter Summary ---
[place] [address] Care Team Providers Care Assignment Manager Name Role Phone Cb Florence Primary Care Provider +1- [phone] Encounter Details Date Type Department Care Team (Late st Contact Info) Description 01/12/2022 Telephone [place] [address] Daniela Singh Social History Tobacco Use Types [...] on filedocumented in this encounter Care Teams Assignment Manager Relationship Specialty Start Date End Date Cb Florence PA [address] [place], [place] [address] PCP - General Family Medicine 04/08/20 documented as of this encounter
--- OUTSIDE RECORDS SUMMARY | 2024-07-24 00:47 | XMS_ITS | Encounter Summary ---
[place] [address] Care Team Providers Care Bologna Lacer Name Role Phone Cb Florence Primary Care Provider +1- [phone] Reason for Visit * Reason Onset Date Comments Oxygen Dependence 01/24/2022 Confirmation o f Order Form Encounter Details Date Type Department Care Team (Late st Contact Info) Description 01/24/2022 Telephone [place] [phone] Suzanne Sears RN Oxygen Dependence (Confirmation of [...] for oxygen, signed by Dr. Holloway, to [employer] [facility]. This covered the following items: [id number] - [...] on filedocumented in this encounter Care Teams Bologna Lacer Relationship Specialty Start Date End Date Cb Florence PA [address] [place] [address] PCP - General Family Medicine 04/08/20 documented as of this encounter
--- OUTSIDE RECORDS SUMMARY | 2024-07-24 00:47 | XMS_ITS | Encounter Summary ---
Author Organization [facility] [address] [place] [address] Care Team Providers Care Bar Hostess Name Role Phone Cb Florence Primary Care Provider [phone]- [phone] Reason for Visit * Auth/Cert Specialty Diagnoses [...] Expiration Date Visits Re quested Visits Authorized [id number] 1 1 Encounter Details Date Type Department Care Team (Latest Contact Info) Description 07/11/2021 9:12 AM EST - 07/14/2021 2:10 PM EST Hospital Encounter 3 [place] [address] Rios Gonzalez MD [facility] [place] [address] s/p Right L4-5 hemilaminectomy and L4-S1 instrumented [...] Poppy Mclaughlin Patient Age: 60 y.o. Language: Italian Race: White Ethnicity: Not nor Admit date: 07/11/2021 Discharge date and time: 07/14/2021 Attending Physician: Rios Gonzalez MD Discharge Physician: Rios Gonzalez MD Follow-up Recommendations for Providers: See discharge instructions for additional details. Future Appointments Date Time Provider Department Center 08/10/2021 3:00 PM [facility] DX ROOM 2 MH Xray [facility] Rad 08/10/2021 3:40 PM Rios Gonzalez MD [facility] [place] Sp [facility] Inpatient Provider Contact Information: Rios Gonzalez MD Spine Center: [phone] After hours and weekends, call [facility] Composite Technician, , and have the Orthopedic resident paged. [...] who have questions please contact the health adult care manager that requested your imaging first. Electronically signed by: Bianca Mcdonnell MD, [facility] ([phone]), at 07/11/2021 7:55 PM Pending Studies and Lab Data at Discharge: * No orders in the log * Transfusions: No Discharge Conditions/Prognosis: Stable, awake, and alert. Mobilizing as noted above, pain controlled on oral medications. Discharge to: [place] [facility]: [facility]. PHONE: [phone] FAX: [phone] Updated Allergies/ADRs: Allergies Allergen Reactions ??? Pneumococcal [...] device Spcr Commonly known as: Joshua Aerosol [place]ook Enhancer 2 puffs by Misc.(Non-Drug; Combo Route) route daily. 2 puff Refills: 0 lisinopriL 10 mg Tab Commonly known as: Zestril daily. Refills: 0 loratadine 10 mg Tab Commonly known as: Claritin Take 10 mg by mouth daily. 10 mg Refills: 0 CLASSIC OXYGEN CONCENTRATOR MISC 3 L by [employer] [facility] [employer].(Non-Drug; Combo Route) route nightly. 3 L Refills: 0 Miscellaneous Medical Supply [employer] [facility] [employer] Face mask for nocturnal O2, and appropriate accessories. Quantity: 1 each Refills: PRN montelukast 10 mg Tab Commonly known as: Singulair Take 10 mg by mouth nightly. 10 mg Refills: 0 MULTIVITAMIN ORAL Take 2 tablets by mouth daily. 2 tablet Refills: 0 Narcan 4 mg/actuation Gifford ADMINISTER A SINGLE SPRAY INTRANASALLY INTO ONE [...] as: NEURONTIN ipratropium 42 mcg (0.06 %) Gifford Commonly known as: ATROVENT meloxicam 15 mg [...] them. 3. You should also take an yiyn-kie-xxlumgg stool softener of laxative, such as Miriam-colace [...] please contact the Spine Center Prescription Lineat [phone]. PRESCRIPTION RENEWAL REQUESTS CAN TAKE UP TO 3 DAYS TO FILL. YOU WILL BE REQUIRED TO NON DESTRUCTIVE TESTING TECHNICIAN YOUR NARCOTIC REFILL PRESCRIPTION IN PERSON AT [facility] OR IT CAN BE MAILED TO YOUR [...] smoke-free lifestyle. You can also call local [place] or [place] quit lines for additional assistance. [place] Quit Line: 0-114-TFYU-NOW Online at [employer] [place] Quit Line: 9-818-QLFY-NOW Online at [email or web address] PLEASE CALL US AT [phone] TO SPEAK WITH A SPINE CENTER NURSE [...] Numbers: Clinical issues, nurse questions, medication renewals: [phone] Gonzalez: [phone] Evenings after 5pm and weekends you may contact the Orthopaedic resident communications lead: [phone], askthe asphalt distributor operator to page the Orthopaedic resident Follow Up Appointments: 1. You will have follow-up appointments at [facility] as indicated in the ???Future Appointments and Orders?? section of your discharge summary. If X-rays have been ordered for you prior to this appointment you will need to report to the Radiology department, desk 3T, 1 hour prior to your spine center appointment. Future Appointments Date Time Provider Department Center 08/10/2021 3:00 PM [facility] DX ROOM 2 MH Xray [facility] Rad 08/10/2021 3:40 PM Rios Gonzalez MD [facility] [place] Sp [facility] General Instructions None Future Appointments and Orders Future Appointments and Orders Future Appointments Provider Department Dept Phone 08/10/2021 3:00 PM [facility] DX ROOM 2 XRay at [facility] Arrive at: [facility] [phone] Please go to [facility] ([place] Location). 08/10/2021 3:40 PM Rios Gonzalez MD Pain and Spine Center at [facility] Arrive at: [facility] [phone] Future Orders Complete By Expires Referral to Home Health - at DISCHARGE [CXB7225 CPT(R)] As directed Process Instructions: Scheduling Instructions: Comments: DOCUMENTATION FOR VNA SERVICES (INCLUDING THOSE PATIENTS WITH MEDICARE COVERAGE REQUIRING HOME VNA SERVICES AND/OR HOSPICE SERVICES) PATIENT'S LOCATION: Poppy Mclaughlin [address] [place] [address] Cell: Telephone Information: Physician Non Invasive Cardiologist's Name: self/patient In discussion with the attending physician, it is certified that this patient is under their care and that they, or a Nurse Practitioner,Clinical Nurse specialist or Physician Flange Turner who is working directly with them, had [...] x 7 days HOME HEALTH CARE AGENCY: [facility] PHONE: [phone] FAX: [phone] Start of care: 24 to 48 hours [...] Jesus [address] / [place] [address] All A agencies which cover the area of patient's residence have been reviewed, either verbally laila writing, and patient/family have chosen the home health care agency noted Questions: Agency name and contact information: [facility] Patient location post discharge: home What services are requested: Physical Therapy Start date: Responsible MD post discharge contact info: Primary Care Provider: KIARA Jesus [phone] Discharge References/Attachments SMOKING: STOPPING (ALBANIAN) documented in this encounter Discharge Instructions * Patient Instructions* Keren Hammond, SOC ANALYST - 07/11/2021 4:53 PM EST Activity: 1. [...] them. 3. You should also take an wvha-raa-zkuoaic stool softener of laxative, such as Miriam-colace [...] please contact the Spine Center Prescription Lineat [phone]. PRESCRIPTION RENEWAL REQUESTS CAN TAKE UP TO 3 DAYS TO FILL. YOU WILL BE REQUIRED TO NON DESTRUCTIVE TESTING TECHNICIAN YOUR NARCOTIC REFILL PRESCRIPTION IN PERSON AT [facility] OR IT CAN BE MAILED TO YOUR [...] smoke-free lifestyle. You can also call local [place] or [place] quit lines for additional assistance. [place] Quit Line: 9-940-NPKI-NOW Online at [email or web address] [place] Quit Line: 1-914-GSLC-NOW Online at quitnoShip It Bag Check.org PLEASE CALL US AT [phone] TO SPEAK WITH A SPINE CENTER NURSE [...] Numbers: Clinical issues, nurse questions, medication renewals: [phone] Gonzalez: [phone] Evenings after 5pm and weekends you may contact the Orthopaedic resident communications lead: [phone], askthe asphalt distributor operator to page the Orthopaedic resident Follow Up Appointments: 1. You will have follow-up appointments at [facility] as indicated in the ???Future Appointments and Orders?? section of your discharge summary. If X-rays have been ordered for you prior to this appointment you will need to report to the Radiology department, desk 3T, 1 hour prior to your spine center appointment. Future Appointments Date Time Provider Department Center 08/10/2021 3:00 PM [facility] DX ROOM 2 MH Xray [facility] Rad 08/10/2021 3:40 PM Rios Gonzalez MD [facility] Pain Sp [facility] * Attachments The following attachments cannot be sent through Care Everywhere. * SMOKING: STOPPING (ALBANIAN) documented in this encounter Medications at Time of Discharge Medication Sig Dispensed Refills Start Date End Date acetaminophen (Tylenol) 500 mg Tablet Take 2 tablets by mouth every 6 hours. 0 07/14/[address] (Cymbalta) 30 mg Capsule, Delayed Release(E.C.) TAKE 1 CAPSULE BY MOUTH ONCE DAILY 03/17/2021 Narcan 4 mg/actuation [place], Non-Aerosol ADMINISTER A SINGLE SPRAY INTRANASALLY INTO [...] CLASSIC OXYGEN CONCENTRATOR MISC) 3 L by [employer] [facility] [employer].(Non-Drug; Combo Route) route nightly. diphenoxylate-atropin e (LOMOTIL) 2.5-0.025 mg Tablet Take 1 tablet by mouth 4 times daily. DO NOT restarted this unless you are having diarrhea. 120 tablet 7 06/11/2014 albuterol (PROVENTIL HFA;VENTOLIN HFA) 90 mcg/actuation HFA Aerosol Inhaler Inhale 2 puffs into the lungs every 4 hours as needed. Use with spacer Inhalational Spacing Device Spcr 2 puffs by [facility].(Non-Drug; Combo Route) route daily. promethazine (PHENERGAN) 25 [...] Time Provider Department Center 08/10/2021 3:00 PM [facility] DX ROOM 2 Xray [facility] Rad 08/10/2021 3:40 PM Rios Gonzalez MD [facility] [place] Sp [facility] Spine Attending I have seen and examined [...] STRUCTUAL performed by Rios Gonzalez MD at [facility] MAIN OR ??? PRO ANTERIOR INSTRUMENTATION 2-3 VERTEBRAL SEGMENTS 09/08/2013 @ANT. SPINAL INSTRUMENTATION, 2-3 VERTEBRA, SEGMENTED performed by Rios Gonzalez MD at [facility] [place] ??? PRO ARTHRD ANT INTERDY CERVCL BELW C2 EA ADDL NTRSPC 09/08/2013 @ARTHRODESIS ANT INTERBDY CERVCL BELOW C2 EA ADDL INTRSPACE performed by Rios Gonzalez MD at [facility] MAIN OR ??? PRO ARTHRODESIS, ANT INTERBODY,DECOMPRESSION; CERVICAL BELOW C2 09/08/2013 ARTHRODESIS, ANT INTERBODY,DECOMPRESSION; CERVICAL BELOW C2 performed by Rios Gonzalez MD at [facility] MAIN OR ??? PRO AUTOGRAFT SPINE SURGERY MORSELIZED SEP INCISION Bilateral 07/11/2021 AUTOGRAFT FOR SPINE SURGERY ONLY; MORSELIZED (THROUGH SEPARATE SKIN OR FASCIAL INCISION) (WRVU 2.79) performed by Rios Gonzalez MD at [facility] MAIN OR ??? PRO DECOMPRESS SPINAL CORD, 1 SEG Right 08/31/2014 TRANSPEDICULAR LUMBAR DECOMPRESSION SPINAL CORD,EQUINA & NERVE ROOTS, ONE LVL. performed by Rios Gonzalez MD at [facility] OR ??? PRO DECOMPRESS SPINAL CORD, 1 SEG N/A 07/11/2021 TRANSPEDICULAR LUMBAR DECOMPRESSION SPINAL CORD,EQUINA & NERVE ROOTS, ONE LVL. (WRVU 21.86) performed by Rios Gonzalez MD at [facility] MAIN OR ??? PRO LAMINEC/FACETECT/FORAMIN, EACH ADDNL Bilateral 07/11/2021 ADD'L INTERSPACES CX., THORACIC, LUMBAR (WRVU 3.47) performed by Rios Gonzalez MD at [facility] MAIN OR ??? PRO LAMINEC/FACETECT/FORAMIN, LUMBAR 1 SEG N/A 07/11/2021 LAMINECTOMY, FACETECTOMY & FORAMINOTOMY,LUMBAR, ONE LEVEL (WRVU 15.37) performed by Rios Gonzalez MD at [facility] MAIN OR ??? PRO LAP, CHOLECYSTECTOMY/GRAPH 11/04/2012 LAPAROSCOPIC CHOLECYSTECTOMY WITH CHOLANGIOGRAM performed by Abel Carlton MD at [facility] MAIN OR ??? PRO LUMBAR SPINE FUSN, POST TECH Bilateral 07/11/2021 ARTHRODESIS, LUMBAR SPINE, SINGLE LEVEL (WRVU 23.53) performed by Rios Gonzalez MD at [facility] MAIN OR ??? PRO POSTERIOR SEGMENTAL INSTRUMENTATION 3-6 VRT SEG Bilateral 07/11/2021 POST SPINAL INSTRUMENTATION, 3-6 VERTEBRA, NON SEGMENTAL (WRVU 12.56) performed by Rios Gonzalez MD at [facility] MAIN OR ??? PRO SPINE FUSN, POST TECH, EA ADDNL SGMT Bilateral 07/11/2021 ARTHRODESIS, POSTERIOR VERTEBRAL EA.ADD. SEGMENT (WRVU 6.43) performed by Rios Gonzalez MD at [facility] MAIN OR ??? PRO UPPER GI ENDOSCOPY, BIOPSY N/A 10/26/2015 UPPER GASTROINTESTINAL ENDOSCOPY,WITH BIOPSY SINGLE OR MULTIPLE performed by Apolinar Sepulveda MDat [facility] ENDOSCOPY ??? PRO UPPER GI ENDOSCOPY, DIAGNOSTIC N/A 10/26/2015 EGD, UPPER GI ENDOSCOPY performed by Apolinar Sepulveda MD at [facility] ENDOSCOPY ??? PRO UPPER GI ENDOSCOPY, DIAGNOSTIC N/A 10/02/2016 EGD, UPPER GI ENDOSCOPY performed by Justin Starkey MD at [facility] ENDOSCOPY ??? PRO UPPER GI ENDOSCOPY, W/DIR SUBMUC INJ 11/05/2017 EGD, W DIRECTED SUBMUCOSAL INJECTION(S) performed by Osmany Keller MD at [facility] ENDOSCOPY Social History: Patient lives w/ [...] to obtain shower chair for home from [employer] and work with home OT on showering [...] Management, Balance, Recommendations and Discharge planning. Pager: [phone] JUSTIN ESPINO 07/13/2021 Occupational Therapy Rehabilitation Department * Monica Rivera RN - 07/13/2021 12:51 PM EST Phone call to [facility] re patient's home oxygen set up. Spoke to Jaclyn Nassar [phone] clarified that patient has portable oxygen concentrator at home and it has battery back up. Update to patient. Phone call from Mitch with [facility] informing that patient's front wheel walker will not be covered by medicare since patient purchased 4 wheel walker less than 5 years ago.Update to patient andspouse; spouse informed that he opts to purchase FWW at [facility], informed that patient will need FWW for [...] plan as stated. Time IN / OUT: 3786-8789 Total Minutes, Physical Therapy: 30 Billing Code: 1 gait training, 1 therapeutic activity Malgorzata Fish PT Pager: [phone] Physical Therapy Inpatient Rehabilitation Department * Rios [...] Time Provider Department Center 08/10/2021 3:00 PM [facility] DX ROOM 2 Xray [facility] Rad 08/10/2021 3:40 PM Rios Gonzalez MD [facility] Pain Sp [facility] Spine Attending I have seen and examined [...] referrals are placed. Patient requests referral to [facility]. PHONE: [phone] FAX: [phone] Ortho Care Located @ [facility] [place], [place] Equipment needed: Front wheel walker Expected date of discharge: 07/13/2021 Referral routed to the [employer] Worker for matching with agency/vendor and to provide [...] STRUCTUAL performed by Rios Gonzalez MD at [facility] MAIN OR ??? PRO ANTERIOR INSTRUMENTATION 2-3 VERTEBRAL SEGMENTS 09/08/2013 @ANT. SPINAL INSTRUMENTATION, 2-3 VERTEBRA, SEGMENTED performed by Rios Gonzalez MD at [facility] [place] ??? PRO ARTHRD ANT INTERDY CERVCL BELW C2 EA ADDL NTRSPC 09/08/2013 @ARTHRODESIS ANT INTERBDY CERVCL BELOW C2 EA ADDL INTRSPACE performed by Rios Gonzalez MD at [facility] OR ??? PRO ARTHRODESIS, ANT INTERBODY,DECOMPRESSION; CERVICAL BELOW C2 09/08/2013 ARTHRODESIS, ANT INTERBODY,DECOMPRESSION; CERVICAL BELOW C2 performed by Rios Gonzalez MD at [facility] MAIN OR ??? PRO AUTOGRAFT SPINE SURGERY MORSELIZED SEP INCISION Bilateral 07/11/2021 AUTOGRAFT FOR SPINE SURGERY ONLY; MORSELIZED (THROUGH SEPARATE SKIN OR FASCIAL INCISION) (WRVU 2.79) performed by Rios Gonzalez MD at [facility] MAIN OR ??? PRO DECOMPRESS SPINAL CORD, 1 SEG Right 08/31/2014 TRANSPEDICULAR LUMBAR DECOMPRESSION SPINAL CORD,EQUINA & NERVE ROOTS, ONE LVL. performed by Rios Gonzalez MD at [facility] OR ??? PRO DECOMPRESS SPINAL CORD, 1 SEG N/A 07/11/2021 TRANSPEDICULAR LUMBAR DECOMPRESSION SPINAL CORD,EQUINA & NERVE ROOTS, ONE LVL. (WRVU 21.86) performed by Rios Gonzalez MD at [facility] MAIN OR ??? PRO LAMINEC/FACETECT/FORAMIN, EACH ADDNL Bilateral 07/11/2021 ADD'L INTERSPACES CX., THORACIC, LUMBAR (WRVU 3.47) performed by Rios Gonzalez MD at [facility] MAIN OR ??? PRO LAMINEC/FACETECT/FORAMIN, LUMBAR 1 SEG N/A 07/11/2021 LAMINECTOMY, FACETECTOMY & FORAMINOTOMY,LUMBAR, ONE LEVEL (WRVU 15.37) performed by Rios Gonzalez MD at [facility] MAIN OR ??? PRO LAP, CHOLECYSTECTOMY/GRAPH 11/04/2012 LAPAROSCOPIC CHOLECYSTECTOMY WITH CHOLANGIOGRAM performed by Abel Carlton MD at [facility] OR ??? PRO LUMBAR SPINE FUSN, POST TECH Bilateral 07/11/2021 ARTHRODESIS, LUMBAR SPINE, SINGLE LEVEL (WRVU 23.53) performed by Rios Gonzalez MD at [facility] OR ??? PRO POSTERIOR SEGMENTAL INSTRUMENTATION 3-6 VRT SEG Bilateral 07/11/2021 POST SPINAL INSTRUMENTATION, 3-6 VERTEBRA, NON SEGMENTAL (WRVU 12.56) performed by Rios Gonzalez MD at [facility] MAIN OR ??? PRO SPINE FUSN, POST TECH, EA ADDNL SGMT Bilateral 07/11/2021 ARTHRODESIS, POSTERIOR VERTEBRAL EA.ADD. SEGMENT (WRVU 6.43) performed by Rios Gonzalez MD at [facility] MAIN OR ??? PRO UPPER GI ENDOSCOPY, BIOPSY N/A 10/26/2015 UPPER GASTROINTESTINAL ENDOSCOPY,WITH BIOPSY SINGLE OR MULTIPLE performed by Apolinar Sepulveda MDat [facility] ENDOSCOPY ??? PRO UPPER GI ENDOSCOPY, DIAGNOSTIC N/A 10/26/2015 EGD, UPPER GI ENDOSCOPY performed by Apolinar Sepulveda MD at [facility] ENDOSCOPY ??? PRO UPPER GI ENDOSCOPY, DIAGNOSTIC N/A 10/02/2016 EGD, UPPER GI ENDOSCOPY performed by Justin Starkey MD at [facility] ENDOSCOPY ??? PRO UPPER GI ENDOSCOPY, W/DIR SUBMUC INJ 11/05/2017 EGD, W DIRECTED SUBMUCOSAL INJECTION(S) performed by Osmany Keller MD at [facility] ENDOSCOPY Active Non-Hospital Problems Diagnosis ??? [...] moving Vision: WFL Skin: Spine incision c/d/i, BAUDLIIO drain intact, PIV intact Musculoskeletal: ROM: WFL [...] outlinedin this evaluation. Time IN / OUT: 0574-8644 Total Minutes, Physical Therapy: 43 Malgorzata Fish PT Pager: [phone] Physical Therapy Inpatient Rehabilitation Department * Siria [...] STRUCTUAL performed by Rios Gonzalez MD at [facility] MAIN OR ??? PRO ANTERIOR INSTRUMENTATION 2-3 VERTEBRAL SEGMENTS 09/08/2013 @ANT. SPINAL INSTRUMENTATION, 2-3 VERTEBRA, SEGMENTED performed by Rios Gonzalez MD at [facility] [place] ??? PRO ARTHRD ANT INTERDY CERVCL BELW C2 EA ADDL NTRSPC 09/08/2013 @ARTHRODESIS ANT INTERBDY CERVCL BELOW C2 EA ADDL INTRSPACE performed by Rios Gonzalez MD at [facility] MAIN OR ??? PRO ARTHRODESIS, ANT INTERBODY,DECOMPRESSION; CERVICAL BELOW C2 09/08/2013 ARTHRODESIS, ANT INTERBODY,DECOMPRESSION; CERVICAL BELOW C2 performed by Rios Gonzalez MD at [facility] MAIN OR ??? PRO AUTOGRAFT SPINE SURGERY MORSELIZED SEP INCISION Bilateral 07/11/2021 AUTOGRAFT FOR SPINE SURGERY ONLY; MORSELIZED (THROUGH SEPARATE SKIN OR FASCIAL INCISION) (WRVU 2.79) performed by Rios Gonzalez MD at [facility] MAIN OR ??? PRO DECOMPRESS SPINAL CORD, 1 SEG Right 08/31/2014 TRANSPEDICULAR LUMBAR DECOMPRESSION SPINAL CORD,EQUINA & NERVE ROOTS, ONE LVL. performed by Rios Gonzalez MD at [facility] MAIN OR ??? PRO DECOMPRESS SPINAL CORD, 1 SEG N/A 07/11/2021 TRANSPEDICULAR LUMBAR DECOMPRESSION SPINAL CORD,EQUINA & NERVE ROOTS, ONE LVL. (WRVU 21.86) performed by Rios Gonzalez MD at [facility] MAIN OR ??? PRO LAMINEC/FACETECT/FORAMIN, EACH ADDNL Bilateral 07/11/2021 ADD'L INTERSPACES CX., THORACIC, LUMBAR (WRVU 3.47) performed by Rios Gonzalez MD at [facility] MAIN OR ??? PRO LAMINEC/FACETECT/FORAMIN, LUMBAR 1 SEG N/A 07/11/2021 LAMINECTOMY, FACETECTOMY & FORAMINOTOMY,LUMBAR, ONE LEVEL (WRVU 15.37) performed by Rios Gonzalez MD at [facility] MAIN OR ??? PRO LAP, CHOLECYSTECTOMY/GRAPH 11/04/2012 LAPAROSCOPIC CHOLECYSTECTOMY WITH CHOLANGIOGRAM performed by Abel Carlton MD at [facility] MAIN OR ??? PRO LUMBAR SPINE FUSN, POST TECH Bilateral 07/11/2021 ARTHRODESIS, LUMBAR SPINE, SINGLE LEVEL (WRVU 23.53) performed by Rios Gonzalez MD at [facility] MAIN OR ??? PRO POSTERIOR SEGMENTAL INSTRUMENTATION 3-6 VRT SEG Bilateral 07/11/2021 POST SPINAL INSTRUMENTATION, 3-6 VERTEBRA, NON SEGMENTAL (WRVU 12.56) performed by Rios Gonzalez MD at [facility] OR ??? PRO SPINE FUSN, POST TECH, EA ADDNL SGMT Bilateral 07/11/2021 ARTHRODESIS, POSTERIOR VERTEBRAL EA.ADD. SEGMENT (WRVU 6.43) performed by Rios Gonzalez MD at [facility] MAIN OR ??? PRO UPPER GI ENDOSCOPY, BIOPSY N/A 10/26/2015 UPPER GASTROINTESTINAL ENDOSCOPY,WITH BIOPSY SINGLE OR MULTIPLE performed by Apolinar Sepulveda MDat [facility] ENDOSCOPY ??? PRO UPPER GI ENDOSCOPY, DIAGNOSTIC N/A 10/26/2015 EGD, UPPER GI ENDOSCOPY performed by Apolinar Sepulveda MD at [facility] ENDOSCOPY ??? PRO UPPER GI ENDOSCOPY, DIAGNOSTIC N/A 10/02/2016 EGD, UPPER GI ENDOSCOPY performed by Justin Starkey MD at [facility] ENDOSCOPY ??? PRO UPPER GI ENDOSCOPY, W/DIR SUBMUC INJ 11/05/2017 EGD, W DIRECTED SUBMUCOSAL INJECTION(S) performed by Osmany Keller MD at [facility] ENDOSCOPY Social History: Patient lives w/ [...] and measurable assessment of functional outcome. Pager: [phone] Samuel Beverly OT 07/12/2021 Occupational Therapy Rehabilitation [...] Time Provider Department Center 08/10/2021 3:00 PM [facility] DX ROOM 2 MH Xray [facility] Rad 08/10/2021 3:40 PM Rios Gonzalez MD [facility] Pain Sp [facility] Spine Attending I have seen and examined [...] Time Provider Department Center 08/10/2021 3:00 PM [facility] DX ROOM 2 MH Xray [facility] Rad 08/10/2021 3:40 PM Rios Gonzalez MD [facility] Pain Sp [facility] * Mahnaz Grijalva RN - 07/11/2021 5:57 [...] [place] on . Pt will go to [facility] on way to her room. documented in this encounter H&P Notes * Rios Gonzalez MD - 07/11/2021 9:30 AM EST 24-Hour Pre-Operative H&P Update Poppy Mclaughlin 1960 [id number] Patient seen in pre-op holding area today. [...] reviewed with her. Yasmani Chaudhry, MSN, RN, [facility] Tobacco Game Bird Farmer [facility] Pager #[phone] * Initial Assessments - Monica Rivera RN [...] COVID test: Lab Results Component Value Date [id number] Not Detected 07/11/2021 Past medical History: Past [...] Manuel would be surrogate decision maker per [place] surrogate decision making law. (Only good for [...] 4 wheel walker) Home Address confirmed as: [address] [place] [address] [place] [address] Social & Family Supports: All names listed below confirmed with patient as current and correct Extended Emergency Contact Information Primary Emergency Contact: José Manuel Mclaughlin Address: [address] [place], [place] [address] [place] [address] [facility] Mobile Relation: Spouse Secondary Emergency Contact: Chadd Ferrera [place] [address] [facility] Relation: Child Mother: ZaneesperanzacobyLety [facility] Current Care Provided by: self Provides Primary [...] Information: Patient uses home O2 at night, 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 Has concentrator at home, no portables. Health/Prescription Coverage: Primary Insurance: MEDICARE Payor: MEDICARE / Plan: MEDICARE PART A & B / Product Type: *No Product type* / Secondary Insurance: Prescription Coverage: Yes [facility] [facility] [address] [place] [address] [place] [id number] [facility] [address] [address] Status: Patient is a : No Primary Care Provider: KIARA Jesus [phone] Patient/Caregiver Goals of Treatment: recovery post surgery Potential Needs for Transition of Care: none Agency Referrals: referral in place to [facility] Transportation: no concerns Transportation Anticipated: family or [...] planning. Office of Care Management Surgery Team Light Bulb Assembler [email or web address] [email or web address] Pager #[phone] * Plan of Care - Georgette Zarate RN - 07/13/2021 2:24 AM EST OUTCOME EVALUATION NOTE: OUTCOME SUMMARY: A&Ox4, VSS on 2L NC, pain well controlled with medication (See MAR). Dressing over incision CDI, BAUDILIO having moderate serosanguineous output. Neurovascular checks remain unchanged, denies any numbness or tingling. Patient voiding frequently without difficulty, ambulating to [facility] x1 with FWW. Resting well in between [...] Operative Note Patient Name: Poppy Pickeringthor : [id number] MR#: [id number] Case Date: 07/11/2021 Surgeon: Surgeon(s) and Role: [...] fusion with right iliac crest bone graft (83931, 13300, 95230, 60272, 78114, 13046, 65587) Anesthesia: General Findings: There was severe foraminal [...] Gonzalez MD - 07/11/2021 11:03 AM EST [facility] [place] Patient Name: Poppy Mclaughlin : [id number] MR#: [id number] Case Date: 07/11/2021 Surgeon: Surgeon(s) and Role: [...] confirm bone on all aspects of the yard pilot hole. The sacral ala or transverse [...] PM EST Laminec/Facetect/Forami n, Lumbar 1 Seg (39904) 07/11/2021 10:21 AM EST Spondylolisthesis of lumbar region Decompress Spinal Cord, 1 Seg ([id number]) 07/11/2021 10:21 AM EST Spondylolisthesis of lumbar region MODIFIER L5 07/11/2021 10:21 AM EST Spondylolisthesis of lumbar region MODIFIER L4 07/11/2021 10:21 AM EST Spondylolisthesis of lumbar region MODIFIER GLOBUS CREO 07/11/2021 10:21 AM EST Spondylolisthesis of lumbar region Autograft Spine Surgery Morselized Sep Incision (31589) 07/11/2021 10:21 AM EST Spondylolisthesis of lumbar region Posterior Segmental Instrumentation 3-6 Vrt Seg ([id number]) 07/11/2021 10:21 AM EST Spondylolisthesis of lumbar region Guevara Facetectomy&Foramot 1 Vrt Sgm Ea Addl Sgm ([id number]) 07/11/2021 10:21 AM EST Spondylolisthesis of lumbar region Arthrodesis Posterior/Pstlat Technique 1 Interspace Lumbar, Ea Add'L Interspace ([id number]) 07/11/2021 10:21 AM EST Spondylolisthesis of lumbar region Arthrodesis Posterior/Pstlat Technique 1 Interspace Lumbar ([id number]) 07/11/2021 10:21 AM EST Spondylolisthesis of lumbar region RAPID COVID-19 PCR ([facility]) Routine 07/11/2021 10:16 AM EST ADD'L [...] AM EST) Lavender Hold Sample in lab. [facility] Blood Venous Draw / Unknown 07/14/2021 11:33 AM EST 07/14/2021 12:16 PM EST Jane León SOC ANALYST HEMATOLOGY ORDERABL ES [facility] [place] [address] * Magnesium (07/14/2021 11:33 AM EST) Magnesium 0.87 0.69 - 1.07 mmol/L [facility] Blood 07/14/2021 11:3 3 AM EST 07/14/2021 12:15 PM EST Narrative Resulting Agency Comment Spec In Lab Jane León MANUELA CHEMISTRY ORDERABLE S [facility] [place] [address] * Basic Metabolic Panel (non-fasting) (07/14/2021 11:33 AM EST) Glucose 115 65 - 199 mg/dL [facility] Comment:Diabetes: >=200 mg/d L plus symptoms Blood Urea Nitrogen 16 8 - 18 mg/dL [facility] Creatinine 0.96 0.70 - 1.20 mg/dL [facility] Sodium 137 135 - 145 mmol/L [facility] Potassium 4.4 3.5 - 5.0 mmol/L [facility] Comment: Please note: ??Patients with WBC >100,000 may have falsely elevated Potassium levels. ??For accurate Potassium quantification in these patients send serum separator tube (gold top) for subsequent determinations. ??Contact the Clinical Chemistry Laboratory if there are any questions. Chloride 99 98 - 107 mmol/L [facility] Carbon Dioxide 27 22 - 31 mmol/L [facility] Anion Gap 11 5 - 15 mmol/L [facility] Calcium 9.8 8.5 - 10.5 mg/dL [facility] Est Glomerular Filtration Rate 65 >=60 mL/min/1. 73 m?? [facility] [...] Lab Jane León MANUELA CHEMISTRY ORDERABLE S [facility] [place] [address] * (ABNORMAL) Magnesium (07/13/2021 9:26 AM EST) Magnesium 0.65(L) 0.69 - 1.07 mmol/L [facility] Blood 07/13/2021 9:26 AM EST 07/13/2021 9:53 AM EST Narrative Resulting Agency Comment Spec In Lab Jane León MANUELA CHEMISTRY ORDERABLE S Performing Organization Address [facility] Co de Phone Number [facility] [place] [address] * (ABNORMAL) Basic Metabolic Panel (non-fasting) (07/13/2021 9:26 AM EST) Glucose 146 65 - 199 mg/dL [facility] Comment:Diabetes: >=200 mg/d L plus symptoms Blood Urea Nitrogen 20(H) 8 - 18 mg/dL [facility] Creatinine 1.11 0.70 - 1.20 mg/dL [facility] Sodium 137 135 - 145 mmol/L [facility] Potassium 4.1 3.5 - 5.0 mmol/L [facility] Comment: Please note: ??Patients with WBC >100,000 may have falsely elevated Potassium levels. ??For accurate Potassium quantification in these patients send serum separator tube (gold top) for subsequent determinations. ??Contact the Clinical Chemistry Laboratory if there are any questions. Chloride 102 98 - 107 mmol/L [facility] Carbon Dioxide 26 22 - 31 mmol/L [facility] Anion Gap 9 5 - 15 mmol/L [facility] Calcium 9.0 8.5 - 10.5 mg/dL [facility] Est Glomerular Filtration Rate 55(L) >=60 mL/min/1. 73 m?? [facility] [...] CHEMISTRY ORDERABLE S Performing Organization Address City/State/[facility] Co de Phone Number [facility] [place] [address] * (ABNORMAL) Differential, Automated (07/12/2021 2:20 AM EST) Neutrophil % 83.4 % [facility] Neutrophil Absolute 11.61(H) 1.70 - 6.10 x10(3)/mc L [facility] Lymph % 10.9 % [facility] Lymphocytes Abs 1.5 0.9 - 3.2 x10(3)/mc L [facility] Monocyte % 5.2 % [facility] Monocyte Abs 0.7 0.3 - 0.9 x10(3)/mc L [facility] Eos % 0.0 % [facility] Eosinophils Abs 0.0 0.0 - 0.4 x10(3)/mc L [facility] Basophil % 0.1 % [facility] Baso Absolute 0.0 0.0 - 0.1 x10(3)/mc L [facility] Immature Gran % 0.40 % [facility] Comment: Immature granulocytes(IG's)percentage and absolute count will include metamyelocytes, myelocytes, and promyelocytes. Blood smears from CBCs yielding IG's will be scanned manually for concordance. If this scan disagrees with the automated IG or if promyelocytes are noted, a manual differential will be performed. Immature Gran Absolute 0.05(H) 0.00 - 0.04 x10(3)/mc L [facility] Blood 07/12/2021 2:20 AM EST 07/12/2021 2:34 AM EST Narrative Resulting Agency Comment Spec In Lab Demetris Blakely MD HEMATOLOGY ORDERABLE S [facility] [place] [address] * (ABNORMAL) Hemogram (07/12/2021 2:20 AM EST) White Blood Cell 13.9(H) 4.0 - 9.5 x10(3)/mc L [facility] Red Blood Cell 3.42(L) 4.00 - 5.21 x10(6)/mc L [facility] Hemoglobin 10.2(L) 11.7 - 15.5 g/dL [facility] Hematocrit 32.2(L) 35.7 - 45.8 % [facility] Mean Cell Volume 94.2 82.6 - 94.4 fL [facility] Mean Cell Hemoglobin 29.8 27.1 - 32.0 pg [facility] Mean Cell Hemoglobin Concentration 31.7 31.7 - 35.0 g/dL [facility] Platelet 168 145 - 357 x10(3)/mc L [facility] RDW Standard Deviation 47.3(H) 37.0 - 46.0 fL [facility] RDW coefficient of variation 13.7 11.5 - 14.1 % [facility] Mean Platelet Volume 11.6 7.6 - 12.9 fL [facility] NRBC% auto 0.0 % [facility] NRBC Absolute 0.000 0.000 - 0.000 x10(3)/mc L [facility] Blood 07/12/2021 2:20 AM EST 07/12/2021 2:34 AM EST Narrative Resulting Agency Comment Spec In Lab Demetris Blakely MD HEMATOLOGY ORDERABLE S [facility] [place] [address] * (ABNORMAL) Basic Metabolic Panel (non-fasting) (07/12/2021 2:20 AM EST) Glucose 150 65 - 199 mg/dL [facility] Comment:Diabetes: >=200 mg/d L plus symptoms Blood Urea Nitrogen 17 8 - 18 mg/dL [facility] Creatinine 1.12 0.70 - 1.20 mg/dL [facility] Sodium 140 135 - 145 mmol/L [facility] Potassium 4.8 3.5 - 5.0 mmol/L [facility] Comment: Please note: ??Patients with WBC >100,000 may have falsely elevated Potassium levels. ??For accurate Potassium quantification in these patients send serum separator tube (gold top) for subsequent determinations. ??Contact the Clinical Chemistry Laboratory if there are any questions. Chloride 105 98 - 107 mmol/L [facility] Carbon Dioxide 25 22 - 31 mmol/L [facility] Anion Gap 10 5 - 15 mmol/L [facility] Calcium 8.6 8.5 - 10.5 mg/dL [facility] Comment:result rechecked-ng Est Glomerular Filtration Rate 54(L) >=60 mL/min/1. 73 m?? [facility] [...] In Lab Rios Gonzalez MD CHEMISTRY ORDERABLES [facility] [place] [id number] * XR Lumbar Spine 2 Or 3 [...] who have questions please contact the health adult care manager that requested your imaging first. ? Electronically signed by: Bianca Mcdonnell MD, [facility] ([phone]), at 07/11/2021 7:55 PM Narrative 07/11/2021 7:55 [...] patients who have questions please contactthe health adult care manager that requested your imaging first. Electronically signed by: Bianca Mcdonnell MD, [facility]([phone]), at 07/11/2021 7:55 PM Rios Gonzalez MD IMG DX ORDERABLES * XR Fluoro No Rad <1Hr - OR Use (07/11/2021 2:33 PM EST) Narrative Dicom, Auditing User - 07/11/2021 2:34 PM EST This exam is auto-finalizing. No interpretation was done. Rios DU FLUORO ORDERABLE S * COVID-19 PCR (07/11/2021 10:16 AM EST) SARS-CoV-2 RNA (Rapid) Not Detected Not Detected [facility] Comment: This result should [...] using the Simplexa COVID-19 Direct Assay by [employer] as authorized by the FDA issued Emergency [...] Department of Pathology and Laboratory Medicine at [facility], certified under the Clinical Laboratory Improvement Amendments [...] fact sheets at the following FDA website: https://www.fda.gov/medical-devices/htwzdnuqxch-nukluad-5154-hzpgd-10-psqyhduyp- use-a kozyeudjzpbxx-bnmmvmq-xhpqfvs/clyvw-xfpvjmfwwra-bjmh SARS-CoV-2 Source TOWER HAND Swab RI [facility] Nasopharyngeal Swab 07/11/20 10:16 AM EST 07/11/2021 11:24 AM EST Comment:Symptoms->Surveillan ce Narrative Resulting Agency Comment Spec In Lab Sanaz Coffey CRITICAL CARE REGISTERED NURSE MICROBIOLOGY - GENER AL ORDERABLES [facility] [place] [address] documented in this encounter Visit Diagnoses Diagnosis [...] Padilla RN)1406 (Given - Provider: Nohemy Ribera LPN)9957 (Given - Provider: Kalie Gomez RN) 0514 [...] KAMLA)2004 (See Alternative - Provider: Georgette Zarate, RN) 0514 (Given - Provider: Georgette Zarate, [...] 2126 (Given - Provider: Robert Blankenship, RN) 0573 (Given - Provider: Robert Blankenship, RN)0908 (See [...] Routine documented in this encounter Care Teams Bar Hostess Relationship Specialty Start Date End Date Cb Florence PA [address] [place] [address] PCP - General Family Medicine 04/08/20 documented as of this encounter
--- OUTSIDE RECORDS SUMMARY | 2024-07-24 00:47 | XMS_ITS | Encounter Summary ---
Author Organization [facility] Address [facility] [place] [address] Care Team Providers Care Boiler House Inspector Name Role Phone Cb Florence Primary Care Provider +1- [phone] Encounter Details Date Type Department Care Team (Latest Contact Info) Description 07/19/2022 3:16 PM EST - 07/19/2022 11:59 PM [facility] Hospital Encounter XRay at [address] [place] [address] Rios Acuna MD [facility] [place] [address] s/p Right L4-5 hemilaminectomy and L4-S1 instrumented [...] MOUTH ONCE DAILY 03/17/2021 Narcan 4 mg/actuation [place], Non-Aerosol ADMINISTER A SINGLE SPRAY INTRANASALLY INTO [...] Device Spcr 2 puffs by [facility]Non-Drug; Combo Route) route daily. promethazine (PHENERGAN) 25 [...] attendant that requested your imaging first. ? Electronically signed by: VIRI RICHTER MD, [facility] ([phone]), at 07/20/2022 1:52 PM Narrative 07/20/2022 1:52 [...] imaging first. Electronically signed by: VIRI RICHTER MD, [facility]([phone]), at 07/20/2022 1:52 PM Rios Acuna MD IMG DX ORDERABLES documented in this encounter Visit Diagnoses Diagnosis s/p Right L4-5 hemilaminectomy and L4-S1 instrumented fusion on 07/11/21 (Dr. Acuna) Arthrodesis status documented in this encounter Care Teams Boiler House Inspector Relationship Specialty Start Date End Date Cb Florence PA [address] [place] [address] PCP - General Family Medicine 04/08/20 documented as of this encounter
--- OUTSIDE RECORDS SUMMARY | 2024-07-24 00:47 | XMS_ITS | Encounter Summary ---
[place] [address] Care Team Providers Care Hot Room Attendant Name Role Phone Cb Florence Primary Care Provider +1- [phone] Encounter Details Date Type Department Care Team (Late st Contact Info) Description 08/02/2021 Telephone [facility] [place] [phone] Lucretai Moreno LPN Social History Tobacco Use Types [...] on filedocumented in this encounter Care Teams Hot Room Attendant Relationship Specialty Start Date End Date Cb Florence PA [address] [place] [address] PCP - General Family Medicine 04/08/20 documented as of this encounter
--- OUTSIDE RECORDS SUMMARY | 2024-07-24 00:47 | XMS_ITS | Encounter Summary ---
[place] [address] Care Team Providers Care Technical Administrator Name Role Phone Cb Florence Primary Care Provider +1- [phone] Reason for Visit * Reason Onset Date Comments Medication Refill 08/03/2021 Encounter Details Date Type Department Care Team (Late st Contact Info) Description 08/03/2021 Refill [facility] [place] [id number] Lucretia Moreno LPN Social History Tobacco Use [...] on filedocumented in this encounter Care Teams Technical Administrator Relationship Specialty Start Date End Date Cb Florence PA [address] [place] [address] PCP - General Family Medicine 04/08/20 documented as of this encounter
--- OUTSIDE RECORDS SUMMARY | 2024-07-24 00:47 | XMS_ITS | Encounter Summary ---
Author Organization [facility] Address [facility] [place] [address] Care Team Providers Care Intake Coordinator Name Role Phone Cb Florence Primary Care Provider +1- [phone] Encounter Details Date Type Department Care Team (Latest Contact Info) Description 08/10/2021 2:48 PM EST - 08/10/2021 11:59 PM [facility] Hospital Encounter XRay at [address] [place] [address] Rios Acuna MD [facility] [place] [address] Spondylolisthesis of lumbar region Discharge Disposition: Home [...] MOUTH ONCE DAILY 03/17/2021 Narcan 4 mg/actuation [place], Non-Aerosol ADMINISTER A SINGLE SPRAY INTRANASALLY INTO [...] CLASSIC OXYGEN CONCENTRATOR MISC) 3 L by [facility].(Non-Drug; Combo Route) [...] Spacing Device Spcr 2 puffs by [facility].(Non-Drug; Combo Route) [...] who have questions please contact the health out of school hours care worker that requested your imaging first. ? Narrative [...] patients who have questions please contactthe health out of school hours care worker that requested your imaging first. Rios Acuna MD IMG DX ORDERABLES documented in this encounter Visit Diagnoses Diagnosis Spondylolisthesis of lumbar region Acquired spondylolisthesis documented in this encounter Care Teams Intake Coordinator Relationship Specialty Start Date End Date Cb Florence PA [address] [place] [address] PCP - General Family Medicine 04/08/20 documented as of this encounter
--- OUTSIDE RECORDS SUMMARY | 2024-07-24 00:47 | XMS_ITS | Encounter Summary ---
[place] [address] Care Team Providers Care Aerobics Instructor Name Role Phone Cb Florence Primary Care Provider +1- [phone] Encounter Details Date Type Department Care Team (Late st Contact Info) Description 08/14/2021 Telephone [facility] [place] [phone] Lucretia Moreno LPN Social History Tobacco Use [...] on filedocumented in this encounter Care Teams Aerobics Instructor Relationship Specialty Start Date End Date Cb Florence PA [address] [place] [address] PCP - General Family Medicine 04/08/20 documented as of this encounter
--- OUTSIDE RECORDS SUMMARY | 2024-07-24 00:47 | XMS_ITS | Encounter Summary ---
Author Organization Formerly [facility] [place] [address] Care Team Providers Care Insole Doubler Name Role Phone Cb Florence Primary Care Provider [phone]- [phone] Reason for Visit * Auth/Cert Specialty Diagnoses [...] Expiration Date Visits Re quested Visits Authorized [id number] 1 1 Encounter Details Date Type Department Care Team (Late st Contact Info) Description 07/11/2021 10:15 AM EST - 07/11/2021 3:30 PM EST Surgery [place] [address] Rios Gonzalez MD [facility] [place] [address] ARTHRODESIS, LUMBAR SPINE, SINGLE INTERSPACE (WRVU 23.53) [...] Poppy Mclaughlin Patient Age: 60 y.o. Language: Cymro Race: White Ethnicity: Not nor Admit date: 07/11/2021 Discharge date and time: 07/14/2021 Attending Physician: Rios Gonzalez MD Discharge Physician: Rios Gonzalez MD Follow-up Recommendations for Providers: See discharge instructions for additional details. Future Appointments Date Time Provider Department Center 08/10/2021 3:00 PM [facility] DX ROOM 2 MH Xray [facility] Rad 08/10/2021 3:40 PM Rios Gonzalez MD [facility] Pain Sp [facility] Inpatient Provider Contact Information: Rios Gonzalez MD Spine Center: [phone] After hours and weekends, call [facility] Aerial Photograph Interpreter, , and have the Orthopedic resident paged. [...] who have questions please contact the health daycare manager that requested your imaging first. Pending Studies and Lab Data at Discharge: * No orders in the log * Transfusions: No Discharge Conditions/Prognosis: Stable, awake, and alert. Mobilizing as noted above, pain controlled on oral medications. Discharge to: Home HOME HEALTH CARE AGENCY: [facility] PHONE: [phone] FAX: [phone] Updated Allergies/ADRs: Allergies Allergen Reactions ??? Pneumococcal [...] device Spcr Commonly known as: Joshua Aerosol [place] Enhancer [address] [facility]Non-Drug; Combo Route) route daily. 2 puff Refills: 0 lisinopriL 10 mg Tab Commonly known as: Zestril daily. Refills: 0 loratadine 10 mg Tab Commonly known as: Claritin Take 10 mg by mouth daily. 10 mg Refills: 0 CLASSIC OXYGEN CONCENTRATOR MISC [address] [facility]Non-Drug; Combo Route) route nightly. 3 L Refills: [address] [facility] Face mask for nocturnal O2, and appropriate accessories. Quantity: 1 each Refills: PRN montelukast 10 mg Tab Commonly known as: Singulair Take 10 mg by mouth nightly. 10 mg Refills: 0 MULTIVITAMIN ORAL Take 2 tablets by mouth daily. 2 tablet Refills: 0 Narcan 4 mg/actuation Neligh ADMINISTER A SINGLE SPRAY INTRANASALLY INTO ONE [...] as: NEURONTIN ipratropium 42 mcg (0.06 %) Neligh Commonly known as: ATROVENT meloxicam 15 mg [...] them. 3. You should also take an ecsn-ssj-cjbdeef stool softener of laxative, such as Miriam-colace [...] please contact the Spine Center Prescription Lineat [phone]. PRESCRIPTION RENEWAL REQUESTS CAN TAKE UP TO 3 DAYS TO FILL. YOU WILL BE REQUIRED TO BELLMAN CAPTAIN YOUR NARCOTIC REFILL PRESCRIPTION IN PERSON AT [...] smoke-free lifestyle. You can also call local [place] or [place] quit lines for additional assistance. [place] Quit Line: 7-294-IJPI-NOW Online at Pay by Shopping (deal united).[employer] [place] Quit Line: 3-739-SRES-NOW Online at quitWave Crest Group.org PLEASE CALL US AT [phone] TO SPEAK WITH A SPINE CENTER NURSE [...] Numbers: Clinical issues, nurse questions, medication renewals: [phone] Gonzalez: [phone] Evenings after 5pm and weekends you may contact the Orthopaedic resident contracts representative: [phone], askthe linking machine operator to page the Orthopaedic resident Follow Up Appointments: 1. You will have follow-up appointments at CREEK [...] Time Provider Department Center 08/10/2021 3:00 PM [facility] DX ROOM 2 MH Xray [facility] Rad 08/10/2021 3:40 PM Rios Gonzalez MD [facility] Pain Sp [facility] General Instructions None Future Appointments and Orders Future Appointments and Orders Future Appointments Provider Department Dept Phone 08/10/2021 3:00 PM [facility] DX ROOM 2 XRay at [facility] Arrive at: Billing Assistant Area 3T [phone] Please go to Billing Assistant Area 3T ([facility] Location). 08/10/2021 3:40 PM Rios Gonzalez MD Pain and Spine Center at [facility] Arrive at: Billing Assistant Area 3D [phone] Future Orders Complete By Expires Referral to Home Health - at DISCHARGE [[id number] CPT(R)] As directed Process Instructions: Scheduling Instructions: Comments: DOCUMENTATION FOR VNA SERVICES (INCLUDING THOSE PATIENTS WITH MEDICARE COVERAGE REQUIRING HOME VNA SERVICES AND/OR HOSPICE SERVICES) PATIENT'S LOCATION: Poppy Mclaughlin [address] [place] [id number] Cell: Telephone Information: Pipe Threading Machine Operator's Name: self/patient In discussion with the attending physician, it is certified that this patient is under their care and that they, or a Nurse Practitioner,Clinical Nurse specialist or Physician Arts And Crafts Instructor who is working directly with them, had [...] x 7 days HOME HEALTH CARE AGENCY: [facility] PHONE: [phone] FAX: [phone] Start of care: 24 to 48 hours [...] Jesus [address] / [place] [address] All A agencies which cover the area of patient's residence have been reviewed, either verbally laila writing, and patient/family have chosen the home health care agency noted Questions: Agency name and contact information: [facility] Patient location post discharge: home What services are requested: Physical Therapy Start date: Responsible MD post discharge contact info: Primary Care Provider: KIARA Jesus [phone] Discharge References/Attachments SMOKING: STOPPING (IRISH) documented in this encounter Discharge Instructions * [...] them. 3. You should also take an ekht-nmb-aiubfoo stool softener of laxative, such as Miriam-colace [...] please contact the Spine Center Prescription Lineat [phone]. PRESCRIPTION RENEWAL REQUESTS CAN TAKE UP TO 3 DAYS TO FILL. YOU WILL BE REQUIRED TO BELLMAN CAPTAIN YOUR NARCOTIC REFILL PRESCRIPTION IN PERSON AT [...] smoke-free lifestyle. You can also call local [place] or [place] quit lines for additional assistance. [place] Quit Line: 8-979-LKBN-NOW Online at In[employer]Fresh[employer].org [place] Quit Line: 9-720-UGVM-NOW Online at [email or web address].[email or web address] PLEASE CALL US AT [phone] TO SPEAK WITH A SPINE CENTER NURSE [...] Numbers: Clinical issues, nurse questions, medication renewals: [phone] Gonzalez: [phone] Evenings after 5pm and weekends you may contact the Orthopaedic resident contracts representative: [phone], askthe linking machine operator to page the Orthopaedic resident Follow Up Appointments: 1. You will have follow-up appointments at [facility] [...] Time Provider Department Center 08/10/2021 3:00 PM [facility] DX ROOM 2 MH Xray [facility] Rad 08/10/2021 3:40 PM Rios Gonzalez MD [facility] Pain Sp [facility] * Attachments The following attachments cannot be sent through Care Everywhere. * SMOKING: STOPPING (IRISH) documented in this encounter Medications at Time of Discharge Medication Sig Dispensed Refills Start Date End Date acetaminophen (Tylenol) 500 mg Tablet Take 2 tablets by mouth every 6 hours. 0 07/14/[address] (Cymbalta) 30 mg Capsule, Delayed Release(E.C.) TAKE 1 CAPSULE BY MOUTH ONCE DAILY 03/17/2021 Narcan 4 mg/actuation [place], Non-Aerosol ADMINISTER A SINGLE SPRAY INTRANASALLY INTO [...] Consults: PT/OT Dispo:Pending PT/OT Follow-up: 08/10/21 Demetris Blaekly MD Orthopaedic Surgery PGY4 07/14/2021 Future Appointments Date Time Provider Department Center 08/10/2021 3:00 PM [facility] DX ROOM 2 Xray [facility] Rad 08/10/2021 3:40 PM Rios Gonzalez MD [facility] Pain Sp [facility] Spine Attending I have seen and examined [...] STRUCTUAL performed by Rios Gonzalez MD at [facility] MAIN OR ??? PRO ANTERIOR INSTRUMENTATION 2-3 VERTEBRAL SEGMENTS 09/08/2013 @ANT. SPINAL INSTRUMENTATION, 2-3 VERTEBRA, SEGMENTED performed by Rios Gonzalez MD at [facility] [place] ??? PRO ARTHRD ANT INTERDY CERVCL BELW C2 EA ADDL NTRSPC 09/08/2013 @ARTHRODESIS ANT INTERBDY CERVCL BELOW C2 EA ADDL INTRSPACE performed by Rios Gonzalez MD at [facility] MAIN OR ??? PRO ARTHRODESIS, ANT INTERBODY,DECOMPRESSION; CERVICAL BELOW C2 09/08/2013 ARTHRODESIS, ANT INTERBODY,DECOMPRESSION; CERVICAL BELOW C2 performed by Rios Gonzalez MD at [facility] MAIN OR ??? PRO AUTOGRAFT SPINE SURGERY MORSELIZED SEP INCISION Bilateral 07/11/2021 AUTOGRAFT FOR SPINE SURGERY ONLY; MORSELIZED (THROUGH SEPARATE SKIN OR FASCIAL INCISION) (WRVU 2.79) performed by Rios Gonzalez MD at [facility] MAIN OR ??? PRO DECOMPRESS SPINAL CORD, 1 SEG Right 08/31/2014 TRANSPEDICULAR LUMBAR DECOMPRESSION SPINAL CORD,EQUINA & NERVE ROOTS, ONE LVL. performed by Rios Gonzalez MD at [facility] MAIN OR ??? PRO DECOMPRESS SPINAL CORD, 1 SEG N/A 07/11/2021 TRANSPEDICULAR LUMBAR DECOMPRESSION SPINAL CORD,EQUINA & NERVE ROOTS, ONE LVL. (WRVU 21.86) performed by Rios Gonzalez MD at [facility] MAIN OR ??? PRO LAMINEC/FACETECT/FORAMIN, EACH ADDNL Bilateral 07/11/2021 ADD'L INTERSPACES CX., THORACIC, LUMBAR (WRVU 3.47) performed by Rios Gonzalez MD at [facility] MAIN OR ??? PRO LAMINEC/FACETECT/FORAMIN, LUMBAR 1 SEG N/A 07/11/2021 LAMINECTOMY, FACETECTOMY & FORAMINOTOMY,LUMBAR, ONE LEVEL (WRVU 15.37) performed by Rios Gonzalez MD at [facility] MAIN OR ??? PRO LAP, CHOLECYSTECTOMY/GRAPH 11/04/2012 LAPAROSCOPIC CHOLECYSTECTOMY WITH CHOLANGIOGRAM performed by Abel Carlton MD at [facility] MAIN OR ??? PRO LUMBAR SPINE FUSN, POST TECH Bilateral 07/11/2021 ARTHRODESIS, LUMBAR SPINE, SINGLE LEVEL (WRVU 23.53) performed by Rios Gonzalez MD at [facility] MAIN OR ??? PRO POSTERIOR SEGMENTAL INSTRUMENTATION 3-6 VRT SEG Bilateral 07/11/2021 POST SPINAL INSTRUMENTATION, 3-6 VERTEBRA, NON SEGMENTAL (WRVU 12.56) performed by Rios Gonzalez MD at [facility] MAIN OR ??? PRO SPINE FUSN, POST TECH, EA ADDNL SGMT Bilateral 07/11/2021 ARTHRODESIS, POSTERIOR VERTEBRAL EA.ADD. SEGMENT (WRVU 6.43) performed by Rios Gonzalez MD at [facility] MAIN OR ??? PRO UPPER GI ENDOSCOPY, BIOPSY N/A 10/26/2015 UPPER GASTROINTESTINAL ENDOSCOPY,WITH BIOPSY SINGLE OR MULTIPLE performed by Apolinar Sepulveda MDat [facility] ENDOSCOPY ??? PRO UPPER GI ENDOSCOPY, DIAGNOSTIC N/A 10/26/2015 EGD, UPPER GI ENDOSCOPY performed by Apolinar Sepulveda MD at [facility] ENDOSCOPY ??? PRO UPPER GI ENDOSCOPY, DIAGNOSTIC N/A 10/02/2016 EGD, UPPER GI ENDOSCOPY performed by Justin Starkey MD at [facility] ENDOSCOPY ??? PRO UPPER GI ENDOSCOPY, W/DIR SUBMUC INJ 11/05/2017 EGD, W DIRECTED SUBMUCOSAL INJECTION(S) performed by Osmany Keller MD at [facility] ENDOSCOPY Social History: Patient lives w/ [...] to obtain shower chair for home from [employer] and work with home OT on showering [...] Management, Balance, Recommendations and Discharge planning. Pager: [phone] JUSTIN ESPINO 07/13/2021 Occupational Therapy Rehabilitation Department * Monica Rivera RN - 07/13/2021 12:51 PM EST Phone call to [facility] re patient's home oxygen set up. Spoke to Jaclyn Nassar [phone] clarified that patient has portable oxygen concentrator at home and it has battery back up. Update to patient. Phone call from Mitch with [facility] informing that patient's front wheel walker will not be covered by medicare since patient purchased 4 wheel walker less than 5 years ago.Update to patient andspouse; spouse informed that he opts to purchase FWW at [facility], informed that patient will need FWW [...] plan as stated. Time IN / OUT: 5329-4148 Total Minutes, Physical Therapy: 30 Billing Code: 1 gait training, 1 therapeutic activity Malgorzata Fish PT Pager: [phone] Physical Therapy Inpatient Rehabilitation Department * Rios [...] Time Provider Department Center 08/10/2021 3:00 PM [facility] DX ROOM 2 MH Xray [facility] Rad 08/10/2021 3:40 PM Rios Gonzalez MD [facility] Pain Sp [facility] Spine Attending I have seen and examined [...] referrals are placed. Patient requests referral to [facility] PHONE: [phone] FAX: [phone] Ortho Care Located @ [facility] Center [place], [place] Equipment needed: Front wheel walker Expected date of discharge: 07/13/2021 Referral routed to the Cream Separator Operator for matching with agency/vendor and to [...] STRUCTUAL performed by Rios Gonzalez MD at [facility] MAIN OR ??? PRO ANTERIOR INSTRUMENTATION 2-3 VERTEBRAL SEGMENTS 09/08/2013 @ANT. SPINAL INSTRUMENTATION, 2-3 VERTEBRA, SEGMENTED performed by Rios Gonzalez MD at [facility] [place] ??? PRO ARTHRD ANT INTERDY CERVCL BELW C2 EA ADDL NTRSPC 09/08/2013 @ARTHRODESIS ANT INTERBDY CERVCL BELOW C2 EA ADDL INTRSPACE performed by Rios Gonzalez MD at [facility] MAIN OR ??? PRO ARTHRODESIS, ANT INTERBODY,DECOMPRESSION; CERVICAL BELOW C2 09/08/2013 ARTHRODESIS, ANT INTERBODY,DECOMPRESSION; CERVICAL BELOW C2 performed by Rios Gonzalez MD at [facility] MAIN OR ??? PRO AUTOGRAFT SPINE SURGERY MORSELIZED SEP INCISION Bilateral 07/11/2021 AUTOGRAFT FOR SPINE SURGERY ONLY; MORSELIZED (THROUGH SEPARATE SKIN OR FASCIAL INCISION) (WRVU 2.79) performed by Rios Gonzalez MD at [facility] MAIN OR ??? PRO DECOMPRESS SPINAL CORD, 1 SEG Right 08/31/2014 TRANSPEDICULAR LUMBAR DECOMPRESSION SPINAL CORD,EQUINA & NERVE ROOTS, ONE LVL. performed by Rios Gonzalez MD at [facility] MAIN OR ??? PRO DECOMPRESS SPINAL CORD, 1 SEG N/A 07/11/2021 TRANSPEDICULAR LUMBAR DECOMPRESSION SPINAL CORD,EQUINA & NERVE ROOTS, ONE LVL. (WRVU 21.86) performed by Rios Gonzalez MD at [facility] MAIN OR ??? PRO LAMINEC/FACETECT/FORAMIN, EACH ADDNL Bilateral 07/11/2021 ADD'L INTERSPACES CX., THORACIC, LUMBAR (WRVU 3.47) performed by Rios Gonzalez MD at [facility] MAIN OR ??? PRO LAMINEC/FACETECT/FORAMIN, LUMBAR 1 SEG N/A 07/11/2021 LAMINECTOMY, FACETECTOMY & FORAMINOTOMY,LUMBAR, ONE LEVEL (WRVU 15.37) performed by Rios Gonzalez MD at [facility] MAIN OR ??? PRO LAP, CHOLECYSTECTOMY/GRAPH 11/04/2012 LAPAROSCOPIC CHOLECYSTECTOMY WITH CHOLANGIOGRAM performed by Abel Carlton MD at [facility] OR ??? PRO LUMBAR SPINE FUSN, POST TECH Bilateral 07/11/2021 ARTHRODESIS, LUMBAR SPINE, SINGLE LEVEL (WRVU 23.53) performed by Rios Gonzalez MD at [facility] MAIN OR ??? PRO POSTERIOR SEGMENTAL INSTRUMENTATION 3-6 VRT SEG Bilateral 07/11/2021 POST SPINAL INSTRUMENTATION, 3-6 VERTEBRA, NON SEGMENTAL (WRVU 12.56) performed by Rios Gonzalez MD at [facility] MAIN OR ??? PRO SPINE FUSN, POST TECH, EA ADDNL SGMT Bilateral 07/11/2021 ARTHRODESIS, POSTERIOR VERTEBRAL EA.ADD. SEGMENT (WRVU 6.43) performed by Rios Gonzalez MD at [facility] MAIN OR ??? PRO UPPER GI ENDOSCOPY, BIOPSY N/A 10/26/2015 UPPER GASTROINTESTINAL ENDOSCOPY,WITH BIOPSY SINGLE OR MULTIPLE performed by Apolinar Sepulveda MDat [facility] ENDOSCOPY ??? PRO UPPER GI ENDOSCOPY, DIAGNOSTIC N/A 10/26/2015 EGD, UPPER GI ENDOSCOPY performed by Apolinar Sepulveda MD at [facility] ENDOSCOPY ??? PRO UPPER GI ENDOSCOPY, DIAGNOSTIC N/A 10/02/2016 EGD, UPPER GI ENDOSCOPY performed by Justin Starkey MD at [facility] ENDOSCOPY ??? PRO UPPER GI ENDOSCOPY, W/DIR SUBMUC INJ 11/05/2017 EGD, W DIRECTED SUBMUCOSAL INJECTION(S) performed by Osmany Keller MD at [facility] ENDOSCOPY Active Non-Hospital Problems Diagnosis ??? [...] outlinedin this evaluation. Time IN / OUT: 5273-9045 Total Minutes, Physical Therapy: 43 Malgorzata Fish PT Pager: [phone] Physical Therapy Inpatient Rehabilitation Department * Samuel [...] STRUCTUAL performed by Rios Gonzalez MD at [facility] MAIN OR ??? PRO ANTERIOR INSTRUMENTATION 2-3 VERTEBRAL SEGMENTS 09/08/2013 @ANT. SPINAL INSTRUMENTATION, 2-3 VERTEBRA, SEGMENTED performed by Rios Gonzalez MD at [facility] [place] ??? PRO ARTHRD ANT INTERDY CERVCL BELW C2 EA ADDL NTRSPC 09/08/2013 @ARTHRODESIS ANT INTERBDY CERVCL BELOW C2 EA ADDL INTRSPACE performed by Rios Gonzalez MD at [facility] MAIN OR ??? PRO ARTHRODESIS, ANT INTERBODY,DECOMPRESSION; CERVICAL BELOW C2 09/08/2013 ARTHRODESIS, ANT INTERBODY,DECOMPRESSION; CERVICAL BELOW C2 performed by Rios Gonzalez MD at [facility] MAIN OR ??? PRO AUTOGRAFT SPINE SURGERY MORSELIZED SEP INCISION Bilateral 07/11/2021 AUTOGRAFT FOR SPINE SURGERY ONLY; MORSELIZED (THROUGH SEPARATE SKIN OR FASCIAL INCISION) (WRVU 2.79) performed by Rios Gonzalez MD at [facility] MAIN OR ??? PRO DECOMPRESS SPINAL CORD, 1 SEG Right 08/31/2014 TRANSPEDICULAR LUMBAR DECOMPRESSION SPINAL CORD,EQUINA & NERVE ROOTS, ONE LVL. performed by Rios Gonzalez MD at [facility] MAIN OR ??? PRO DECOMPRESS SPINAL CORD, 1 SEG N/A 07/11/2021 TRANSPEDICULAR LUMBAR DECOMPRESSION SPINAL CORD,EQUINA & NERVE ROOTS, ONE LVL. (WRVU 21.86) performed by Rios Gonzalez MD at [facility] MAIN OR ??? PRO LAMINEC/FACETECT/FORAMIN, EACH ADDNL Bilateral 07/11/2021 ADD'L INTERSPACES CX., THORACIC, LUMBAR (WRVU 3.47) performed by Rios Gonzalez MD at [facility] MAIN OR ??? PRO LAMINEC/FACETECT/FORAMIN, LUMBAR 1 SEG N/A 07/11/2021 LAMINECTOMY, FACETECTOMY & FORAMINOTOMY,LUMBAR, ONE LEVEL (WRVU 15.37) performed by Rios Gonzalez MD at [facility] MAIN OR ??? PRO LAP, CHOLECYSTECTOMY/GRAPH 11/04/2012 LAPAROSCOPIC CHOLECYSTECTOMY WITH CHOLANGIOGRAM performed by Abel Carlton MD at [facility] OR ??? PRO LUMBAR SPINE FUSN, POST TECH Bilateral 07/11/2021 ARTHRODESIS, LUMBAR SPINE, SINGLE LEVEL (WRVU 23.53) performed by Rios Gonzalez MD at [facility] MAIN OR ??? PRO POSTERIOR SEGMENTAL INSTRUMENTATION 3-6 VRT SEG Bilateral 07/11/2021 POST SPINAL INSTRUMENTATION, 3-6 VERTEBRA, NON SEGMENTAL (WRVU 12.56) performed by Rios Gonzalez MD at [facility] OR ??? PRO SPINE FUSN, POST TECH, EA ADDNL SGMT Bilateral 07/11/2021 ARTHRODESIS, POSTERIOR VERTEBRAL EA.ADD. SEGMENT (WRVU 6.43) performed by Rios Gonzalez MD at [facility] MAIN OR ??? PRO UPPER GI ENDOSCOPY, BIOPSY N/A 10/26/2015 UPPER GASTROINTESTINAL ENDOSCOPY,WITH BIOPSY SINGLE OR MULTIPLE performed by Apolinar Sepulveda MDat [facility] ENDOSCOPY ??? PRO UPPER GI ENDOSCOPY, DIAGNOSTIC N/A 10/26/2015 EGD, UPPER GI ENDOSCOPY performed by Apolinar Sepulveda MD at [facility] ENDOSCOPY ??? PRO UPPER GI ENDOSCOPY, DIAGNOSTIC N/A 10/02/2016 EGD, UPPER GI ENDOSCOPY performed by Justin Starkey MD at [facility] ENDOSCOPY ??? PRO UPPER GI ENDOSCOPY, W/DIR SUBMUC INJ 11/05/2017 EGD, W DIRECTED SUBMUCOSAL INJECTION(S) performed by Osmany Keller MD at [facility] ENDOSCOPY Social History: Patient lives w/ [...] and measurable assessment of functional outcome. Pager: [phone] Samuel Beverly OT 07/12/2021 Occupational Therapy Rehabilitation [...] Time Provider Department Center 08/10/2021 3:00 PM [facility] DX ROOM 2 Xray [facility] Rad 08/10/2021 3:40 PM iRos Gonzalez MD [facility] Pain Sp [facility] Spine Attending I have seen and examined [...] Time Provider Department Center 08/10/2021 3:00 PM [facility] DX ROOM 2 MH Xray [facility] Rad 08/10/2021 3:40 PM Rios Gonzalez MD [facility] Pain Sp [facility] * Mahnaz Grijalva RN - 07/11/2021 5:57 [...] H&P Update Poppy Del Cid Arnoldo 1960 [id number] Patient seen in pre-op holding area today. [...] reviewed with her. Yasmani Chaudhry, MSN, RN, [facility] Tobacco Collision Technician [facility] Pager #[phone] * Initial Assessments - Monica Rivera RN [...] COVID test: Lab Results Component Value Date [id number] Not Detected 07/11/2021 Past medical History: Past [...] Manuel would be surrogate decision maker per [place] surrogate decision making law. (Only good for [...] 4 wheel walker) Home Address confirmed as: [address] [address] Social & Family Supports: All names listed below confirmed with patient as current and correct Extended Emergency Contact Information Primary Emergency Contact: José Manuel Mclaughlin [address] [place] [address] [facility] Mobile Relation: Spouse Secondary Emergency Contact: [place] [address] [facility] Relation: Child Mother: CamposLety [facility] Current Care Provided by: self Provides Primary [...] Secondary Insurance: Prescription Coverage: Yes Preferred Pharmacy: [facility] [address] [place] [id number] [facility] - [place], [place] - [facility] [address] [place] Status: Patient is a : No Primary Care Provider: KIARA Jesus [phone] Patient/Caregiver Goals of Treatment: recovery post surgery Potential Needs for Transition of Care: none Agency Referrals: referral in place to [facility] Transportation: no concerns Transportation Anticipated: family or [...] planning. Office of Care Management Surgery Team Non Destructive Evaluation Technician [email or web address] Pager #[phone] * Plan of Care - Georgette Zarate RN - 07/13/2021 2:24 AM EST OUTCOME EVALUATION NOTE: OUTCOME SUMMARY: A&Ox4, VSS on 2L NC, pain well controlled with medication (See MAR). Dressing over incision CDI, BAUDILIO having moderate serosanguineous output. Neurovascular checks remain unchanged, denies any numbness or tingling. Patient voiding frequently without difficulty, ambulating to [facility] x1 with FWW. Resting well in between [...] Operative Note Patient Name: Poppy Mclaughlin : [id number] MR#: [id number] Case Date: 07/11/2021 Surgeon: Surgeon(s) and Role: [...] fusion with right iliac crest bone graft (72454, 92860, 35376, 35650, 56672, 50883, 07089) Anesthesia: General Findings: There was severe foraminal [...] Gonzalez MD - 07/11/2021 11:03 AM EST [facility] Operative Note Patient Name: Poppy Mclaughlin : [id number] MR#: [id number] Case Date: 07/11/2021 Surgeon: Surgeon(s) and Role: [...] confirm bone on all aspects of the maritime pilot hole. The sacral ala or transverse [...] PM EST Laminec/Facetect/Forami n, Lumbar 1 Seg (92167) 07/11/2021 10:21 AM EST Spondylolisthesis of lumbar region Decompress Spinal Cord, 1 Seg (18987) 07/11/2021 10:21 AM EST Spondylolisthesis of lumbar region MODIFIER L5 07/11/2021 10:21 AM EST Spondylolisthesis of lumbar region MODIFIER L4 07/11/2021 10:21 AM EST Spondylolisthesis of lumbar region MODIFIER GLOBUS CREO 07/11/2021 10:21 AM EST Spondylolisthesis of lumbar region Autograft Spine Surgery Morselized Sep Incision ([id number]) 07/11/2021 10:21 AM EST Spondylolisthesis of lumbar region Posterior Segmental Instrumentation 3-6 Vrt Seg ([id number]) 07/11/2021 10:21 AM EST Spondylolisthesis of lumbar region Guevara Facetectomy&Foramot 1 Vrt Sgm Ea Addl Sgm ([id number]) 07/11/2021 10:21 AM EST Spondylolisthesis of lumbar region Arthrodesis Posterior/Pstlat Technique 1 Interspace Lumbar, Ea Add'L Interspace ([id number]) 07/11/2021 10:21 AM EST Spondylolisthesis of lumbar region Arthrodesis Posterior/Pstlat Technique 1 Interspace Lumbar ([id number]) 07/11/2021 10:21 AM EST Spondylolisthesis of lumbar region RAPID COVID-19 PCR ([facility]) Routine 07/11/2021 10:16 AM EST ADD'L [...] AM EST) Lavender Hold Sample in lab. [facility] Blood Venous Draw / Unknown 07/14/2021 11:33 AM EST 07/14/2021 12:16 PM EST Jane León WIRE COILER MACHINE OPERATOR HEMATOLOGY ORDERABL ES Performing Organization Address City/[facility]/ZIP Co de Phone Number [facility] [place] [address] * Magnesium (07/14/2021 11:33 AM EST) Magnesium 0.87 0.69 - 1.07 mmol/L [facility] Blood 07/14/2021 11:3 3 AM EST 07/14/2021 12:15 PM EST Narrative Resulting Agency Comment Spec In Lab Jane León WIRE COILER MACHINE OPERATOR CHEMISTRY ORDERABLE S [facility] [place] [address] * Basic Metabolic Panel (non-fasting) (07/14/2021 11:33 AM EST) Glucose 115 65 - 199 mg/dL [facility] Comment:Diabetes: >=200 mg/d L plus symptoms Blood Urea Nitrogen 16 8 - 18 mg/dL [facility] Creatinine 0.96 0.70 - 1.20 mg/dL [facility] Sodium 137 135 - 145 mmol/L [facility] [...] questions. Chloride 99 98 - 107 mmol/L [facility] Carbon Dioxide 27 22 - 31 mmol/L [facility] Anion Gap 11 5 - 15 mmol/L [facility] Calcium 9.8 8.5 - 10.5 mg/dL [facility] Est Glomerular Filtration Rate 65 >=60 mL/min/1. 73 m?? [facility] [...] Lab Jane León APRN CHEMISTRY ORDERABLE S [facility] [place] [address] * (ABNORMAL) Magnesium (07/13/2021 9:26 AM EST) Magnesium 0.65(L) 0.69 - 1.07 mmol/L [facility] Blood 07/13/2021 9:26 AM EST 07/13/2021 9:53 AM EST Narrative Resulting Agency Comment Spec In Lab Jane León APRN CHEMISTRY ORDERABLE S [facility] [place] [address] * (ABNORMAL) Basic Metabolic Panel (non-fasting) (07/13/2021 9:26 AM EST) Glucose 146 65 - 199 mg/dL [facility] Comment:Diabetes: >=200 mg/d L plus symptoms Blood Urea Nitrogen 20(H) 8 - 18 mg/dL [facility] Creatinine 1.11 0.70 - 1.20 mg/dL [facility] Sodium 137 135 - 145 mmol/L [facility] Potassium 4.1 3.5 - 5.0 mmol/L [facility] Comment: Please note: ??Patients with WBC >100,000 may have falsely elevated Potassium levels. ??For accurate Potassium quantification in these patients send serum separator tube (gold top) for subsequent determinations. ??Contact the Clinical Chemistry Laboratory if there are any questions. Chloride 102 98 - 107 mmol/L [facility] Carbon Dioxide 26 22 - 31 mmol/L [facility] Anion Gap 9 5 - 15 mmol/L [facility] Calcium 9.0 8.5 - 10.5 mg/dL [facility] Est Glomerular Filtration Rate 55(L) >=60 mL/min/1. 73 m?? [facility] [...] City/State/[facility] Co de Phone Number [facility] [place] [address] * (ABNORMAL) Differential, Automated (07/12/2021 2:20 AM EST) Neutrophil % 83.4 % [facility] Neutrophil Absolute 11.61(H) 1.70 - 6.10 x10(3)/mc L [facility] Lymph % 10.9 % [facility] Lymphocytes Abs 1.5 0.9 - 3.2 x10(3)/mc L [facility] Monocyte % 5.2 % [facility] Monocyte Abs 0.7 0.3 - 0.9 x10(3)/mc L [facility] Eos % 0.0 % [facility] Eosinophils Abs 0.0 0.0 - 0.4 x10(3)/mc L [facility] Basophil % 0.1 % [facility] Baso Absolute 0.0 0.0 - 0.1 x10(3)/mc L [facility] Immature Gran % 0.40 % [facility] Comment: Immature granulocytes(IG's)percentage and absolute count will include metamyelocytes, myelocytes, and promyelocytes. Blood smears from CBCs yielding IG's will be scanned manually for concordance. If this scan disagrees with the automated IG or if promyelocytes are noted, a manual differential will be performed. Immature Gran Absolute 0.05(H) 0.00 - 0.04 x10(3)/ L [facility] Blood 07/12/2021 2:20 AM EST 07/12/2021 2:34 AM EST Narrative Resulting Agency Comment Spec In Lab Demetris Blakely MD HEMATOLOGY ORDERABLE S [facility] [place] [address] * (ABNORMAL) Hemogram (07/12/2021 2:20 AM EST) White Blood Cell 13.9(H) 4.0 - 9.5 x10(3)/ L [facility] Red Blood Cell 3.42(L) 4.00 - 5.21 x10(6)/[facility] Hemoglobin 10.2(L) 11.7 - 15.5 g/dL [facility] Hematocrit 32.2(L) 35.7 - 45.8 % [facility] Mean Cell Volume 94.2 82.6 - 94.4 [facility] Mean Cell Hemoglobin 29.8 27.1 - 32.0 pg [facility] Mean Cell Hemoglobin Concentration 31.7 31.7 - 35.0 g/dL [facility] Platelet 168 145 - 357 x10(3)/ L [facility] RDW Standard Deviation 47.3(H) 37.0 - 46.0 [facility] RDW coefficient of variation 13.7 11.5 - 14.1 % [facility] Mean Platelet Volume 11.6 7.6 - 12.9 [facility] NRBC% auto 0.0 % [facility] NRBC Absolute 0.000 0.000 - 0.000 x10(3)/ L [facility] Blood 07/12/2021 2:20 AM EST 07/12/2021 2:34 AM EST Narrative Resulting Agency Comment Spec In Lab Demetris Blakely MD HEMATOLOGY ORDERABLE S [facility] [place] [address] * (ABNORMAL) Basic Metabolic Panel (non-fasting) (07/12/2021 2:20 AM EST) Glucose 150 65 - 199 mg/dL [facility] Comment:Diabetes: >=200 mg/d L plus symptoms Blood Urea Nitrogen 17 8 - 18 mg/dL [facility] Creatinine 1.12 0.70 - 1.20 mg/dL [facility] Sodium 140 135 - 145 mmol/L [facility] Potassium 4.8 3.5 - 5.0 mmol/L [facility] Comment: Please note: ??Patients with WBC >100,000 may have falsely elevated Potassium levels. ??For accurate Potassium quantification in these patients send serum separator tube (gold top) for subsequent determinations. ??Contact the Clinical Chemistry Laboratory if there are any questions. Chloride 105 98 - 107 mmol/L [facility] Carbon Dioxide 25 22 - 31 mmol/L [facility] Anion Gap 10 5 - 15 mmol/L [facility] Calcium 8.6 8.5 - 10.5 mg/dL [facility] Comment:result rechecked-ng Est Glomerular Filtration Rate 54(L) >=60 mL/min/1. 73 m?? [facility] [...] In Lab Rios Gonzalez MD CHEMISTRY ORDERABLES [facility] [place] [address] * XR Lumbar Spine 2 Or 3 [...] who have questions please contact the health daycare manager that requested your imaging first. ? Narrative [...] patients who have questions please contactthe health daycare manager that requested your imaging first. Rios Gonzalez MD IMG DX ORDERABLES * XR Fluoro No Rad <1Hr - OR Use (07/11/2021 2:33 PM EST) Narrative Dicom, Auditing User - 07/11/2021 2:34 PM EST This exam is auto-finalizing. No interpretation was done. Rios Gonzalez MD IMG FLUORO ORDERABLE S * COVID-19 PCR (07/11/2021 10:16 AM EST) SARS-CoV-2 RNA (Rapid) Not Detected Not Detected [facility] Comment: This result should be [...] using the Simplexa COVID-19 Direct Assay by [employer] as authorized by the FDA issued Emergency [...] Department of Pathology and Laboratory Medicine at [facility], certified under the Clinical Laboratory Improvement Amendments [...] fact sheets at the following FDA website: https://www.fda.gov/medical-devices/fscdkcqdkng-ylmwuyd-9665-woksk-34-ohuhpkgmv- use-a bldffohmnqobm-ovnfyma-kqllbdq/nswhc-pclubtuwryt-vobd SARS-CoV-2 Source DIE STORAGE CLERK Swab [facility] Nasopharyngeal Swab 07/11/20 10:16 AM EST 07/11/2021 11:24 AM EST Comment:Symptoms->Surveillan ce Narrative Resulting Agency Comment Spec In Lab Sanaz Coffey CRNA MICROBIOLOGY - GENER AL ORDERABLES [facility] [place] [address] documented in this encounter Visit Diagnoses Diagnosis [...] Routine documented in this encounter Care Teams Insole Doubler Relationship Specialty Start Date End Date Cb Florence PA [address] [place] [address] PCP - General Family Medicine 04/08/20 documented as of this encounter
--- OUTSIDE RECORDS SUMMARY | 2024-07-24 00:47 | XMS_ITS | Encounter Summary ---
Author Organization [facility] Address [facility] [place] [address] Care Team Providers Care Boat Builder And Repairer Name Role Phone Cb Florence Primary Care Provider +1- [phone] Encounter Details Date Type Department Care Team (Latest Contact Info) Description 10/09/2021 8:46 AM EST - 10/09/2021 11:59 PM [facility] Encounter XRay at [address] [place] [address] Rios Acuna MD [facility] [place] [place] [address] s/p Right L4-5 hemilaminectomy and L4-S1 instrumented [...] MOUTH ONCE DAILY 03/17/2021 Narcan 4 mg/actuation [place], Non-Aerosol ADMINISTER A SINGLE SPRAY INTRANASALLY INTO [...] OXYGEN CONCENTRATOR MISC) 3 L by [facility].(Non-Drug; Combo Route) route nightly. diphenoxylate-atropine (LOMOTIL) 2.5-0.025 mg Tablet Take 1 tablet by mouth 4 times daily. DO NOT restarted this unless you are having diarrhea. 120 tablet 7 06/11/2014 albuterol (PROVENTIL HFA;VENTOLIN HFA) 90 mcg/actuation HFA Aerosol Inhaler Inhale 2 puffs into the lungs every 4 hours as needed. Use with spacer Inhalational Spacing Device Spcr 2 puffs by [facility].(Non-Drug; Combo Route) route [...] who have questions please contact the health urgent care physician assistant that requested your imaging first. ? Electronically signed by: Kermit Reyna MD, [facility] ([phone]), at 10/09/2021 11:30 AM Narrative 10/09/2021 11:30 [...] patients who have questions please contactthe health urgent care physician assistant that requested your imaging first. Electronically signed by: Kermit Reyna MD, [facility]([phone]), at 10/09/2021 11:30 AM Rios Acuna MD IMG DX ORDERABLES documented in this encounter Visit Diagnoses Diagnosis s/p Right L4-5 hemilaminectomy and L4-S1 instrumented fusion on 07/11/21 (Dr. Acuna) Arthrodesis status documented in this encounter Care Teams Boat Builder And Repairer Relationship Specialty Start Date End Date Cb Florence PA [address] [place] [address] PCP - General Family Medicine 04/08/20 documented as of this encounter
--- OUTSIDE RECORDS SUMMARY | 2024-07-24 00:47 | XMS_ITS | Encounter Summary ---
[place] [address] Care Team Providers Care Central Sterile Technician Name Role Phone Cb Florence Primary Care Provider +1- [phone] Encounter Details Date Type Department Care Team (Late st Contact Info) Description 08/10/2021 Notes Only [facility] [place] [address] Milvia Fernandez RN Social History Tobacco Use [...] on filedocumented in this encounter Care Teams Central Sterile Technician Relationship Specialty Start Date End Date Cb Florence PA [address] [place] [address] PCP - General Family Medicine 04/08/20 documented as of this encounter
--- OUTSIDE RECORDS SUMMARY | 2024-07-24 00:47 | XMS_ITS | Clinical Summary ---
Author Organization [facility] Address [facility] [place] [address] Care Team Providers Care Financial Coach Name Role Phone Cb Florence Primary Care Provider +1- [phone] Allergies Active Allergy Reactions Criticality Noted Date [...] [facility]Non-Drug; Combo Route) route daily. Active albuterol (PROVENTIL [...] [facility]Non-Drug; Combo Route) route nightly. Active chlorpheniramine (CHLOR-TRIMETON) [...] Active guaiFENesin 600 mg Tablet Extended Release 12hrIndications:MERCHANDISE APPRAISER D, moderate Take 1 tablet by mouth [...] ONCE DAILY 03/17/2021 Active Narcan 4 mg/actuation [place], Non-Aerosol ADMINISTER A SINGLE SPRAY INTRANASALLY INTO [...] (1 of 2) 2012 Advance Directive 2017 RSV Vaccine (1 - Risk 60-74 years 1-dose series) 2022 Covid-19 Vaccine (1 - 2023-2 5 season) 2024 Influenza (Flu) vaccine (1 o f 1 - Influenza standard series) 04/12/2024 Diabetes Screening (HgbA1C o r Glucose) 07/14/2024 07/14/2021, 07/13/2021, 07/12/2021, Additional history exists Medical Devices Implanted Type Area Junior Software Engineer Device Identifier Shelf Expiration Date Model / Serial / Lot Allograft,Bne,Cer v,7mm ([id number]) (Autoreq) - [id number] Implanted:Qty: 1 on 09/08/2013 by Rios Acuna MD at [facility] IMPLANTS DO NOT USE [employer] - [id number] 10/08/2017 835.207 / / [id number] Allograft,Bne,Cer v,7mm ([id number]) (Autoreq) - [id number] Implanted:Qty: 1 on 09/08/2013 by Rios Acuna MD at [facility] IMPLANTS DO NOT USE [employer] - [id number] 11/14/2015 835.207 / / [id number] Plate,Prvdce,Cerv ,2-Lvl,30mm ([id number]) (Autoreq) - [id number] Implanted:Qty: 1 on 09/08/2013 by Rios Acuna MD at [facility] IMPLANTS DO NOT USE [employer] - [id number] 150.230 / / Screw,Prvdce,Jason, Stap,4.2x14mm ([id number]) (Autoreq) - [id number] Implanted:Qty: 6 on 09/08/2013 by Rios Acuna MD at [facility] IMPLANTS DO NOT USE [employer] - [id number] 150.814 / / Anderson Spinal 5.5x60mm Lumbar Prebent Ti ([id number]) (Autoreq) - [id number] Implanted:Qty: 2 on 07/11/2021 by Riso Acuna MD at [facility] IMPLANTS Spine Lumbar [employer] [id number] / / End Cap Spinal 5.5mm Thoracolumbar Locking Ti ([id number]) (Autoreq) - [id number] Implanted:Qty: 6 on 07/11/2021 by Rios Acuna MD at [facility] IMPLANTS Spine Lumbar [employer] [id number] / / Screw Spinal 6.5x40mm Pedicle Plaxl Thread Sld ([id number]) (Autoreq) - [id number] Implanted:Qty: 2 on 07/11/2021 by Rios Acuna MD at [facility] IMPLANTS Spine Lumbar [employer] [id number] / / Screw Spinal 6.5x45mm Pedicle Plaxl Thread Sld ([id number]) (Autoreq) - [id number] Implanted:Qty: 3 on 07/11/2021 by Rios Acuna MD at [facility] IMPLANTS Spine Lumbar [employer] [id number] / / Screw Spinal 6.5x50mm Pedicle Plaxl Thread Sld ([id number]) ([employer]oreq) - [id number] Implanted:Qty: 1 on 07/11/2021 by Rios Acuna MD at [facility] IMPLANTS Spine Lumbar [employer] 5119.1650 / / Explanted Type Area Junior Software Engineer Device Identifier Shelf Expiration Date Model / Serial / Lot Screw,Disctn,1 4mm ([id number]) - [id number] Explanted:Qty: 2 on 09/08/2013 at [facility] IMPLANTS SPINAL [employer]IMENSIONS - [id number] / / Procedures Procedure Name Priority Date/Time Associated Diagnosis Comments HC VENIPUNCTURE Routine 07/14/2021 11:33 AM EST from Last 3 Months or Most Recently Relevant to Health Maintenance Results * Basic Metabolic Panel (non-fasting) (07/14/2021 11:33 AM EST) [facility] Signature Glucose 115 65 - 199 mg/dL [facility] Comment:Diabetes: >=200 mg/d L plus symptoms Blood Urea Nitrogen 16 8 - 18 mg/dL [facility] Creatinine 0.96 0.70 - 1.20 mg/dL [facility] Sodium 137 135 - 145 mmol/L [facility] Potassium 4.4 3.5 - 5.0 mmol/L [facility] Comment: Please note: ??Patients with WBC >100,000 may have falsely elevated Potassium levels. ??For accurate Potassium quantification in these patients send serum separator tube (gold top) for subsequent determinations. ??Contact the Clinical Chemistry Laboratory if there are any questions. Chloride 99 98 - 107 mmol/L [facility] Carbon Dioxide 27 22 - 31 mmol/L [facility] Anion Gap 11 5 - 15 mmol/L [facility] Calcium 9.8 8.5 - 10.5 mg/dL [facility] Est Glomerular Filtration Rate 65 >=60 mL/min/1. 73 m?? [facility] [...] Lab Jane León APRN CHEMISTRY ORDERABLE S [facility] [place] [address] from Last 3 Months or Most Recently [...] 3:22 PM 09/09/2013 7:12 PM Care Teams Financial Coach Relationship Specialty Start Date End Date Cb Florence PA [address] [place] [address] PCP - General Family Medicine 04/08/20
--- OUTSIDE RECORDS SUMMARY | 2024-07-24 00:47 | XMS_ITS | Encounter Summary ---
[place] [address] Care Team Providers Care Rock Climbing Team Member Name Role Phone Cb Florence Primary Care Provider +1- [phone] Reason for Referral * Physical Therapy (Routine) - Closed Specialty Diagnoses / Procedures Referred By Chava alejo Referred To Contact Physical Therapy Diagnoses Status post lumbar spinal fusion Rios Acuna MD [facility] [place] [address] Rehab, [address] [address] Referral ID Status Reason Start Date Expiration Date V isits Requested Visits Authorized [id number] Closed Evaluate and Treat 10/09/2021 04/07/2022 1 1 Reason for Visit * Reason Comments Follow Up Surgery Encounter Details Date Type Department Care Team (Latest Contact Info) Description 10/09/2021 10:00 AM EST Office Visit [facility] [place] [address] Rios Acuna MD [facility] [place] [address] s/p Right L4-5 hemilaminectomy and L4-S1 instrumented [...] who have questions please contact the health family day care provider that requested your imaging first. ? Electronically signed by: VIRI RICHTER MD, [facility] ([phone]), at 07/20/2022 1:52 PM Narrative 07/20/2022 1:52 [...] patients who have questions please contactthe health family day care provider that requested your imaging first. Rios Acuna MD IMG DX ORDERABLES documented in this encounter Visit Diagnoses Diagnosis s/p Right L4-5 hemilaminectomy and L4-S1 instrumented fusion on 07/11/21 (Dr. Acuna) Arthrodesis status s/p Right L4-5 hemilaminectomy and L4-S1 instrumented fusion on 07/11/21 (Dr. Acuna) Arthrodesis status documented in this encounter Care Teams Rock Climbing Team Member Relationship Specialty Start Date End Date Cb Florence PA [address] [place] [address] PCP - General Family Medicine 04/08/20 documented as of this encounter
--- OUTSIDE RECORDS SUMMARY | 2024-07-24 00:48 | XMS_ITS | Encounter Summary ---
[place] [address] Care Team Providers Care Services Executive Name Role Phone Cb Florence Primary Care Provider +1- [phone] Encounter Details Date Type Department Care Team (Late st Contact Info) Description 12/16/2019 [place] [id number] Lori Candelario Social History Tobacco Use Types [...] on filedocumented in this encounter Care Teams Services Executive Relationship Specialty Start Date End Date Cb Florence PA [address] [place], [place] [id number] PCP - General Family Medicine 11/13/18 03/29/20 documented as of this encounter
--- OUTSIDE RECORDS SUMMARY | 2024-07-24 00:48 | XMS_ITS | Encounter Summary ---
[place] [address] Care Team Providers Care Order Takers Supervisor Name Role Phone Cb Florence Primary Care Provider +1- [phone] Reason for Referral * Diagnostic Test (Routine) - Closed Specialty Diagnoses / Procedures Referred By Chava alejo Referred To Contact Cardiology Diagnoses PAH (pulmonary artery hypertension) Procedures Echocardiogram Transthoracic([facility]) Osmany Holloway MD [facility] [place] [address] [facility] [place] [address] Referral ID Status Reason Start Date Expiration Date V isits Requested Visits Authorized [id number] Closed Specialty Service Requested 04/18/2020 04/18/2021 1 1 Reason for Visit * Reason Comments Follow-up Encounter Details Date Type Department Care Team (Late st Contact Info) Description 04/08/2020 2:00 PM EDT Office [place] [address] Osmany Holloway MD [facility] [place] [address] PAH (pulmonary artery hypertension); COPD, [...] CRITICAL CARE??MEDICINE Pulmonary and Critical Care Medicine [facility] [place] [address] Outpatient follow-up visit Follow-up 59 y.o. female [...] tablet by mouth 2 times daily. 60 [id number] ??? baclofen (LIORESAL) 10 mg Tablet Take [...] OXYGEN CONCENTRATOR MISC) 3 L [place] [facility]Non-Drug; Combo Route) [...] 90 tablet 3 ??? Miscellaneous Medical Supply [facility] Face mask for nocturnal O2 (Patient not [...] will need a prescription for this from [facility] so that he can be replaced at reasonable intervals. Greater than 10 minutes of this 15-minute visit was spent in direct [id number]-[id number]-urry counseling with the patient regarding the management [...] Cid ? (Age): 1960(59y) Med Rec#: ? [id number] ?Sex: ?F ? Site Loc: ? [facility] ?Ht / Wt: ??154.94(cm)/79.0 Pt. Loc: ?Echo Lab ?BSA: ?1.78 Study Date: ?? 07/29/2020 ?Pt. Type: Same-Day Patient Tape: ? Referring: Osmany Holloway Reading: Parker Narvaez ([id number]) Marine Railway Operator: Peg Jose Diagnosis: *Other secondary pulmonary [...] Vmax ?0.67 ? m/sec ? MV deceleration [id number] ?msec ? MV A-wave Vmax ?0.75 ? [...] ? Mid-Inferior ?Normal ? Mid-Inferoseptal ?Normal ? [place]-Septal ? Normal ? [place]-Anterior ? Normal ? [place]-Lateral ?Normal ? [place]-Inferior ? Normal ? [place]-Tip ?Normal ? This report has been electronically signed by: Parker Narvaez MD ? 07/29/2020 14:51:18 Images reviewed and interpretation verified [facility] Cardiac Ultrasound Laboratory Procedure Note Parker Narvaez MD - 07/29/2020 Procedure: Transthoracic Echocardiogram Patient: ODETTE Del Cid DOB(Age): 1960(59y) Med Rec#: [id number] Sex: F Site Loc: [facility] Ht / Wt: 154.94(cm)/79.0 Pt. Loc: Echo Lab BSA: 1.78 Study Date: 07/29/2020 Pt. Type: Same-Day Patient Tape: Referring: Osmany Holloway Reading: Parker Narvaez ([id number]) Marine Railway Operator: Peg Jose Diagnosis: *Other secondary pulmonary [...] MV E-wave Vmax 0.67 m/sec MV deceleration [id number] msec MV A-wave Vmax 0.75 m/sec MV [...] Normal Mid-Posterolateral Normal Mid-Inferior Normal Mid-Inferoseptal Normal [place]-Septal Normal [place]-Anterior Normal [place]-Lateral Normal [place]-Inferior Normal [place]-Tip Normal This report has been electronically signed by: Parker Narvaez MD 07/29/2020 14:51:18 Images reviewed and interpretation verified [facility] Cardiac Ultrasound Laboratory Osmany Overton [...] diseases documented in this encounter Care Teams Order Takers Supervisor Relationship Specialty Start Date End Date Cb Florence PA [address] [place] [address] PCP - General Family Medicine 04/08/20 documented as of this encounter
--- OUTSIDE RECORDS SUMMARY | 2024-07-24 00:48 | XMS_ITS | Encounter Summary ---
[place] [address] Care Team Providers Care Sleeve Presser Operator Name Role Phone Cb Florence Primary Care Provider +1- [phone] Encounter Details Date Type Department Care Team (Late st Contact Info) Description 12/16/2019 [place] [address] Stef Paul, KAMLA Irritable bowel syndrome with [...] to patient making er aware that this financial writer tried reaching her last week via phone and [facility], but was not able. Made patient [...] syndrome documented in this encounter Care Teams Sleeve Presser Operator Relationship Specialty Start Date End Date Cb Florence [address] [place] [address] PCP - General Family Medicine 11/13/18 03/29/20 documented as of this encounter
--- OUTSIDE RECORDS SUMMARY | 2024-07-24 00:48 | XMS_ITS | Encounter Summary ---
Author Organization [facility] [address] Care Team Providers Care Reeling Machine Setup Operator Name Role Phone Cb [place] Primary Care Provider +1- [phone] Reason for Visit * Reason Comments Medication Refill Encounter Details Date Type Department Care Team (Late st Contact Info) Description 07/26/2019 Refill [place] [address] Osmany Keller MD [facility] [place] [address] Irritable bowel syndrome with diarrhea Social History [...] syndrome documented in this encounter Care Teams Reeling Machine Setup Operator Relationship Specialty Start Date End Date Cb Florence PA [address] [place] [address] PCP - General Family Medicine 11/13/18 03/29/20 documented as of this encounter
--- OUTSIDE RECORDS SUMMARY | 2024-07-24 00:48 | XMS_ITS | Encounter Summary ---
[place] [address] Care Team Providers Care Track Moving Machine Operator Name Role Phone Cb [place] Primary Care Provider +1- [phone] Reason for Visit * Reason Onset Date Comments Oxygen Dependence 01/28/2020 Written Confir mation of an Order Encounter Details Date Type Department Care Team (Late st Contact Info) Description 01/28/2020 [place] [address] Suzanne Sears RN Oxygen Dependence [...] Order form, signed by Dr. Holloway, to [employer]. This covered the following items: E1392 Portable Oxygen RNT PORTO2 (4) E1390 Concentrator Oxlife 3 LPMNT Concentr 20 (4) Fax submission confirmation time stamped for 01/28/2020 @ 3012. 2 pages with cover sheet. Copy of Written Confirmation of Order for Oxygen form sent to scanning for inclusion to patient records. documented in this encounter Plan of Treatment Not on file documented as of this encounter Visit Diagnoses Not on filedocumented in this encounter Care Teams Track Moving Machine Operator Relationship Specialty Start Date End Date Cb Florence PA [address] [place] [address] PCP - General Family Medicine 11/13/18 03/29/20 documented as of this encounter
--- OUTSIDE RECORDS SUMMARY | 2024-07-24 00:48 | XMS_ITS | Encounter Summary ---
Author Organization [facility] [address] Care Team Providers Care Hr Advisor Name Role Phone Cb [place] Primary Care Provider +1- [phone] Reason for Visit * Auth/Cert Specialty Diagnoses [...] Expiration Date Visits Re quested Visits Authorized [id number] 1 1 Encounter Details Date Type Department Care Team (Late st Contact Info) Description 07/11/2021 10:22 AM EST Anesthesia Event Main [place] [address] Natali Zaldivar MD [facility] [place] [address] Anesthesia Record Procedure Summary Procedure Name Responsible [...] 1011; metacarpal vein (top of hand), right; anpt-uqi-[id number] catheter system; Anatomical Landmarks; 20 gauge; distraction; [...] dorsal arch vein (top of hand), left; segh-wsx-[id number] catheter system; Anatomical Landmarks; 18 gauge; Sanaz Coffey SURVEYING OR SPATIAL SCIENCE TECHNICIAN; no longer indicated, catheter/device intact; 07/14/21; 1342 07/11/21 1045 by Sanaz Coffey SURVEYING OR SPATIAL SCIENCE TECHNICIAN 07/14/21 1342 by Sanaz Greco Urethral Catheter [...] Luisa Robertson 07/13/21 1321 by Fabian Koenig RN documented in this encounter Social History [...] Procedure Summary Date: 07/11/21 [facility] / [facility] Anesthesia Start: 1022 Anesthesia Stop: [...] All Anesthesia Providers: Anesthesiologist: Natali Zaldivar MD SURVEYING OR SPATIAL SCIENCE TECHNICIAN: Beth Pinon CRNA; Sanaz Coffey CRNA Vitals Value Taken Time BP 109/70 07/11/21 1645 Temp Pulse 80 07/11/21 1653 Resp 14 07/11/21 1653 SpO2 96 % 07/11/21 1653 Pain Level 8 07/11/21 1625 Vitals shown include unvalidated device data. Patient Location: PACU/[facility] Level of Consciousness: Conscious but Sleepy Pain [...] STRUCTUAL performed by Rios Acuna MD at [facility] ??? PRO ANTERIOR INSTRUMENTATION 2-3 VERTEBRAL SEGMENTS 09/08/2013 @ANT. SPINAL INSTRUMENTATION, 2-3 VERTEBRA, SEGMENTED performed by Rios Acuna MD at [facility] [place] ??? PRO ARTHRD ANT INTERDY CERVCL BELW C2 EA ADDL NTRSPC 09/08/2013 @ARTHRODESIS ANT INTERBDY CERVCL BELOW C2 EA ADDL INTRSPACE performed by Rios Acuna MD at [facility] ??? PRO ARTHRODESIS, ANT INTERBODY,DECOMPRESSION; CERVICAL BELOW C2 09/08/2013 ARTHRODESIS, ANT INTERBODY,DECOMPRESSION; CERVICAL BELOW C2 performed by Rios Acuna MD at [facility] ??? PRO DECOMPRESS SPINAL CORD, 1 SEG Right 08/31/2014 TRANSPEDICULAR LUMBAR DECOMPRESSION SPINAL CORD,EQUINA & NERVE ROOTS, ONE LVL. performed by Rios Acuna MD at [facility] ??? PRO LAP, CHOLECYSTECTOMY/GRAPH 11/04/2012 LAPAROSCOPIC CHOLECYSTECTOMY WITH CHOLANGIOGRAM performed by Abel Carlton MD at [facility] ??? PRO UPPER GI ENDOSCOPY, BIOPSY N/A 10/26/2015 UPPER GASTROINTESTINAL ENDOSCOPY,WITH BIOPSY SINGLE OR MULTIPLE performed by Apolinar Sepulveda MD[facility] ??? PRO UPPER GI ENDOSCOPY, DIAGNOSTIC N/A 10/26/2015 EGD, UPPER GI ENDOSCOPY performed by Apolinar Sepulveda MD at [facility] END[facility] ??? PRO UPPER GI ENDOSCOPY, DIAGNOSTIC N/A 10/02/2016 EGD, UPPER GI ENDOSCOPY performed by Justin Starkey MD at [facility] END[facility] ??? PRO UPPER GI ENDOSCOPY, W/DIR SUBMUC INJ 11/05/2017 EGD, W DIRECTED SUBMUCOSAL INJECTION(S) performed by Osmany Keller MD at [facility] END[facility] Social History Tobacco Use ??? Smoking [...] consented to blood products. Plan discussed with SURVEYING OR SPATIAL SCIENCE TECHNICIAN. Anesthesia Screening documented in this encounter Plan [...] mg documented in this encounter Care Teams Hr Advisor Relationship Specialty Start Date End Date Cb Florence PA [address] [place] [address] PCP - General Family Medicine 04/08/20 documented as of this encounter
--- OUTSIDE RECORDS SUMMARY | 2024-07-24 00:48 | XMS_ITS | Encounter Summary ---
Author Organization Formerly [facility] Address [facility] [place] [address] Care Team Providers Care Weigh And Charge Worker Name Role Phone Cb [place] Primary Care Provider +1- [phone] Encounter Details Date Type Department Care Team (Latest Contact Info) Description 05/04/2021 9:47 AM EDT - 05/04/2021 11:59 PM EDT Hospital Encounter XRay at [address] [place] [address] Rios Acuna MD [facility] [place] [address] Spondylolisthesis of lumbar region Discharge Disposition: Home [...] MOUTH ONCE DAILY 03/17/2021 Narcan 4 mg/actuation [place], Non-Aerosol ADMINISTER A SINGLE SPRAY INTRANASALLY INTO [...] OXYGEN CONCENTRATOR MISC) 3 L [place] [facility]Non[place]; Combo [...] Spacing Device Spcr 2 puffs [place] [facility]Non-Drug; Combo [...] sulfamethoxazole-trim ethoprim DS (Bactrim DS) 800-160 mg TabletIndications:ONLINE TRADER D, moderate Take 1 tablet by mouth [...] who have questions please contact the health campground caretaker that requested your imaging first. ? Narrative [...] patients who have questions please contactthe health campground caretaker that requested your imaging first. Rios Acuna MD IMG DX ORDERABLES documented in this encounter Visit Diagnoses Diagnosis Spondylolisthesis of lumbar region Acquired spondylolisthesis documented in this encounter Care Teams Weigh And Charge Worker Relationship Specialty Start Date End Date Cb Florence PA [address] [place] [address] PCP - General Family Medicine 04/08/20 documented as of this encounter
--- OUTSIDE RECORDS SUMMARY | 2024-07-24 00:48 | XMS_ITS | Encounter Summary ---
[place] [address] Care Team Providers Care Header Machine Operator Name Role Phone Cb [place] Primary Care Provider +1- [phone] Reason for Visit * Reason Onset Date Comments Reminder Appointment 12/23/2019 Encounter Details Date Type Department Care Team (Late st Contact Info) Description 12/23/2019 Telephone [place] [address] Gay Ceron CCMA Reminder Appointment Social History [...] on filedocumented in this encounter Care Teams Header Machine Operator Relationship Specialty Start Date End Date Cb Florence PA [address] [place] [address] PCP - General Family Medicine 11/13/18 03/29/20 documented as of this encounter
--- OUTSIDE RECORDS SUMMARY | 2024-07-24 00:48 | XMS_ITS | Encounter Summary ---
[place] [address] Care Team Providers Care Correspondence Dictator Name Role Phone Cb Florence Primary Care Provider +1- [phone] Reason for Referral * Diagnostic Test (Routine) - Closed Specialty Diagnoses / Procedures Referred By Contac t Referred To Contact Cardiology Diagnoses PAH (pulmonary artery hypertension) Procedures Echocardiogram Transthoracic([facility]) Osmany Holloway MD [facility] [place] [address] [facility] [place] [address] Referral ID Status Reason Start Date Expiration Date V isits Requested Visits Authorized [id number] Closed Specialty Service Requested 04/18/2020 04/18/2021 1 1 Reason for Visit * Diagnostic Test (Routine) - Closed Specialty Diagnoses / Procedures Referred By Contac t Referred To Contact Cardiology Diagnoses PAH (pulmonary artery hypertension) Procedures Echocardiogram Transthoracic([facility]) Osmany Holloway MD [facility] [place] [address] [facility] [place] [address] Referral ID Status Reason Start Date Expiration Date V isits Requested Visits Authorized [id number] Closed Specialty Service Requested 04/18/2020 04/18/2021 1 1 Encounter Details Date Type Department Care Team (Latest Contact Info) Description 07/29/2020 12:43 PM EST - 07/29/2020 2:18 PM EST Hospital Encounter Non-Invasive Cardiology Lab Count Includes [facility] [address] Osmany Holloway MD [facility] DR PULMONARY MEDICINE [place] [id number] PAH (pulmonary artery hypertension) Discharge Disposition: Home [...] CONCENTRATOR MISC) 3 L by [facility]Non-Drug; Combo Route) route nightly. diphenoxylate-atropin e (LOMOTIL) 2.5-0.025 mg Tablet Take 1 tablet by mouth 4 times daily. DO NOT restarted this unless you are having diarrhea. 120 tablet 7 06/11/2014 albuterol (PROVENTIL HFA;VENTOLIN HFA) 90 mcg/actuation HFA Aerosol Inhaler Inhale 2 puffs into the lungs every 4 hours as needed. Use with spacer Inhalational Spacing Device Spcr 2 puffs by [facility]Non-Drug; Combo Route) route daily. 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 (Age): 1960(59y) Med Rec#: ? [id number] ?Sex: ?F ? Site Loc: ? [facility] ?Ht / Wt: ??154.94(cm)/79.0 Pt. Loc: ?Echo Lab ?BSA: ?1.78 Study Date: ?? 07/29/2020 ?Pt. Type: Same-Day Patient Tape: ? Referring: Osmany Holloway Reading: Parker Narvaez ([id number]) Pouch Making Machine Operator: Peg Jose Diagnosis: *Other secondary [...] Vmax ?0.67 ? m/sec ? MV deceleration [id number] ?msec ? MV A-wave Vmax ?0.75 ? [...] ? Mid-Inferior ?Normal ? Mid-Inferoseptal ?Normal ? [place]-Septal ? Normal ? [place]-Anterior ? Normal ? [place]-Lateral ?Normal ? [place]-Inferior ? Normal ? [place]-Tip ?Normal ? This report has been electronically signed by: Parker Narvaez MD ? 07/29/2020 14:51:18 Images reviewed and interpretation verified [facility] Cardiac Ultrasound Laboratory Procedure Note Parker Narvaez MD - 07/29/2020 Procedure: Transthoracic Echocardiogram Patient: ODETTE Del Cid DOB(Age): 1960(59y) Med Rec#: [id number] Sex: F Site Loc: [facility] Ht / Wt: 154.94(cm)/79.0 Pt. Loc: Echo Lab BSA: 1.78 Study Date: 07/29/2020 Pt. Type: Same-Day Patient Tape: Referring: Osmany Holloway Reading: Parker Narvaez ([id number]) Pouch Making Machine Operator: Peg Jose Diagnosis: *Other secondary [...] MV E-wave Vmax 0.67 m/sec MV deceleration [id number] msec MV A-wave Vmax 0.75 m/sec MV [...] Normal Mid-Posterolateral Normal Mid-Inferior Normal Mid-Inferoseptal Normal [place]-Septal Normal [place]-Anterior Normal [place]-Lateral Normal [place]-Inferior Normal [place]-Tip Normal This report has been electronically signed by: Parker Narvaez MD 07/29/2020 14:51:18 Images reviewed and interpretation verified [facility] Cardiac Ultrasound Laboratory Osmany Overton [...] mLs documented in this encounter Care Teams Correspondence Dictator Relationship Specialty Start Date End Date Cb Florence PA [address] [place] [address] PCP - General Family Medicine 04/08/20 documented as of this encounter
--- OUTSIDE RECORDS SUMMARY | 2024-07-24 00:48 | XMS_ITS | Encounter Summary ---
Author Organization [facility] [address] Care Team Providers Care Clay Roaster Name Role Phone Cb [place] Primary Care Provider +1- [phone] Encounter Details Date Type Department Care Team (Late st Contact Info) Description 05/27/2020 External Results [place] [address] Marshall Montgomery MD [facility] [place] [address] Social History Tobacco Use Types Packs/Day Years [...] on filedocumented in this encounter Care Teams Clay Roaster Relationship Specialty Start Date End Date Cb Florence PA [address] [place] [address] PCP - General Family Medicine 04/08/20 documented as of this encounter
--- OUTSIDE RECORDS SUMMARY | 2024-07-24 00:48 | XMS_ITS | Encounter Summary ---
[place] [address] Care Team Providers Care Market Asset Protection Manager Name Role Phone Cb Florence Primary Care Provider +1- [phone] Reason for Visit * Reason Onset Date Comments Referral 03/18/2020 Encounter Details Date Type Department Care Team (Late st Contact Info) Description 03/18/2020 [place] [address] Lucrecia Dougherty Referral Social History Tobacco Use [...] her before the end of the week. [phone] * Telephone Encounter - Lucrecia Dougherty - 03/18/2020 2:25 PM EDT Caller: Virginie [facility] If not PT/Relation to PT: [facility] Best number to reach caller: [phone] Reason for the Call: Schedule EMG from [...] on filedocumented in this encounter Care Teams Market Asset Protection Manager Relationship Specialty Start Date End Date Cb Florence PA [address] [place] [address] PCP - General Family Medicine 04/08/20 documented as of this encounter
--- OUTSIDE RECORDS SUMMARY | 2024-07-24 00:48 | XMS_ITS | Encounter Summary ---
[place] [address] Care Team Providers Care Information Security Manager Name Role Phone Cb Florence Primary Care Provider +1- [phone] Reason for Visit * Reason Comments Back Pain lower mid back to lo wer back into RT hip * Consultation (Routine) - Closed Specialty Diagnoses / Procedures Referred By Contac t Referred To Contact [facility] Diagnoses Dorsalgia, unspecified Spine - Chronic low back pain/ RLE pain/ h/o L4-L5 diskectomy 2014 w/ AMP/ MRI 02/21/21 @ [facility] Cb Florence PA [address] [place] [address] [facility] [place] [address] Referral ID Status Reason Start Date Expiration Date Visits Re quested Visits Authorized [id number] Closed 03/10/2021 03/10/2022 1 1 Encounter Details Date Type Department Care Team (Latest Contact Info) Description 05/04/2021 8:40 AM EDT Office Visit [place] [address] Rios Acuna MD [facility] [place] [address] Spondylolisthesis of lumbar region; Pain in extremity, [...] questions please contact the health urgent care that requested your imaging first. ? Electronically signed by: Dion Austin MD, [facility] ([phone]), at 08/10/2021 3:04 PM Narrative 08/10/2021 3:04 [...] have questions please contactthe health urgent care that requested your imaging first. Electronically signed by: Dion Austin MD, [facility]([phone]), at 08/10/2021 3:04 PM Rios Acuna MD IMG DX ORDERABLES * Prothrombin Time (07/11/2021 9:01 AM EST) Prothrombin Time 11.2 9.4 - 12.5 sec [facility] International Normalization Ratio 1.0 [facility] Comment: An INR <2.0 indicates [...] Lab Rios Acuna MD HEMATOLOGY ORDERABLE S [facility] [place] [address] * (ABNORMAL) Basic Metabolic Panel (non-fasting) (07/11/2021 9:01 AM EST) Glucose 84 65 - 199 mg/dL [facility] Comment:Diabetes: >=200 mg/d L plus symptoms Blood Urea Nitrogen 22(H) 8 - 18 mg/dL [facility] Creatinine 1.26(H) 0.70 - 1.20 mg/dL [facility] Sodium 141 135 - 145 mmol/L [facility] Potassium 3.9 3.5 - 5.0 mmol/L [facility] Comment: Please note: ??Patients with WBC >100,000 may have falsely elevated Potassium levels. ??For accurate Potassium quantification in these patients send serum separator tube (gold top) for subsequent determinations. ??Contact the Clinical Chemistry Laboratory if there are any questions. Chloride 104 98 - 107 mmol/L [facility] Carbon Dioxide 26 22 - 31 mmol/L [facility] Anion Gap 11 5 - 15 mmol/L [facility] Calcium 9.7 8.5 - 10.5 mg/dL [facility] Est Glomerular Filtration Rate 47(L) >=60 mL/min/1. 73 m?? [facility] Comment: This patient? s estimated [...] In Lab Rios Acuna MD CHEMISTRY ORDERABLES [facility] [place] [address] * XR Lumbar Spine 2 Or 3 [...] questions please contact the health urgent care that requested your imaging first. ? Narrative [...] have questions please contactthe health urgent care that requested your imaging first. Electronically signed by: Kermit Reyna MD, [facility]([phone]), at 05/04/2021 10:18 AM Rios Acuna MD IMG DX ORDERABLES documented in this encounter Visit Diagnoses Diagnosis Spondylolisthesis of lumbar region Acquired spondylolisthesis Pain in extremity, unspecified extremity Spondylolisthesis of lumbar region Acquired spondylolisthesis Spondylolisthesis of lumbar region Acquired spondylolisthesis documented in this encounter Care Teams Information Security Manager Relationship Specialty Start Date End Date Cb Florence PA [address] [place] [address] PCP - General Family Medicine 04/08/20 documented as of this encounter
--- OUTSIDE RECORDS SUMMARY | 2024-07-24 00:48 | XMS_ITS | Encounter Summary ---
Author Organization [facility] [place] [address] Care Team Providers Care Tierce Filler Name Role Phone Cb [place] Primary Care Provider +1- [phone] Reason for Visit * Reason Comments Medication Refill Encounter Details Date Type Department Care Team (Late st Contact Info) Description 12/25/2019 [place] [address] Osmany Keller MD [facility] [place] [address] Irritable bowel syndrome with diarrhea Social History [...] syndrome documented in this encounter Care Teams Tierce Filler Relationship Specialty Start Date End Date Cb Florence PA [address] [place] [address] PCP - General Family Medicine 11/13/18 03/29/20 documented as of this encounter
--- OUTSIDE RECORDS SUMMARY | 2024-07-24 00:48 | XMS_ITS | Encounter Summary ---
Author Organization [facility] [place] [address] Care Team Providers Care Dry Cleaning Manager Name Role Phone Cb [place] Primary Care Provider +1- [phone] Encounter Details Date Type Department Care Team (Late st Contact Info) Description 02/21/2021 Ancillary Procedure Radiology Library [place] [facility] [place] [address] Cb [place] PA [address] [place] [address] Social History Tobacco Use Types [...] MR Spine (02/21/2021 12:00 AM EDT) Narrative [facility] - 03/30/2021 10:59 AM EDT This exam is auto-finalizing. It's purpose is for storage only. Cb CRAIG IMG FILM LIBRARY O RDERABLES Secretary, [place] documented in this encounter Visit Diagnoses Not on filedocumented in this encounter Care Teams Dry Cleaning Manager Relationship Specialty Start Date End Date Cb [place] PA [address] [place] [address] PCP - General Family Medicine 04/08/20 documented as of this encounter
--- OUTSIDE RECORDS SUMMARY | 2024-07-24 00:48 | XMS_ITS | Encounter Summary ---
[place] [address] Care Team Providers Care Welding Tester Name Role Phone Cb [place] Primary Care Provider +1- [phone] Reason for Visit * Reason Onset Date Comments Oxygen Dependence 03/14/2020 Certificate of Medical Necessity Encounter Details Date Type Department Care Team (Late st Contact Info) Description 03/14/2020 Telephone [place] [address] Suzanne Sears RN Oxygen Dependence [...] for Oxygen, signed by Dr. Holloway, to [facility]. This covered the following: E0424 Regulator O2 [...] on filedocumented in this encounter Care Teams Welding Tester Relationship Specialty Start Date End Date Cb [place] PA [address] [place] [address] PCP - General Family Medicine 11/13/18 03/29/20 documented as of this encounter
--- OUTSIDE RECORDS SUMMARY | 2024-07-24 00:48 | XMS_ITS | Encounter Summary ---
[place] [address] Care Team Providers Care Deputy Sheriff K9 Handler Name Role Phone Cb [place] Primary Care Provider +1- [phone] Encounter Details Date Type Department Care Team (Latest Contact Info) Description 01/20/2021 2:30 PM EDT - 01/20/2021 11:59 PM EDT Hospital Encounter [place] [id number] COPD, moderate; PAH (pulmonary artery hypertension) Discharge [...] Start Date End Date Narcan 4 mg/actuation [place], Non-Aerosol ADMINISTER A SINGLE SPRAY INTRANASALLY INTO [...] [facility]Non-Drug; Combo Route) route nightly. diphenoxylate-atropin e (LOMOTIL) 2.5-0.025 mg Tablet Take 1 tablet by mouth 4 times daily. DO NOT restarted this unless you are having diarrhea. 120 tablet 7 06/11/2014 albuterol (PROVENTIL HFA;VENTOLIN HFA) 90 mcg/actuation HFA Aerosol Inhaler Inhale 2 puffs into the lungs every 4 hours as needed. Use with spacer Inhalational Spacing Device Spcr [facility]Non-Drug; Combo Route) route daily. 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
--- OUTSIDE RECORDS SUMMARY | 2024-07-24 00:48 | XMS_ITS | Encounter Summary ---
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
--- OUTSIDE RECORDS SUMMARY | 2024-07-24 00:48 | XMS_ITS | Encounter Summary ---
[place] [address] Care Team Providers Care Porter Used Car Lot Name Role Phone Cb [place] Primary Care Provider +1- [phone] Encounter Details Date Type Department Care Team (Late st Contact Info) Description 03/16/2020 Telephone [place] [address] Gardenia Bueno CMA GASTROENTEROLOGY DEPT Social History [...] 3:13 PM EDT Gastroenterology / Hepatology at [facility]?[address]?[place] [address]? Subscriber Insurance: [employer] ?Fax: ? Physician:?Osmany Keller ? Return ?? Pharmacy:?[facility] ?? Phone:??[phone] Fax:??[phone] ?? Medication Requested: ??Viberzi ?? Strength:??100 mg?Frequency: ??BID ?? Disp:60? Refills: 5 ?? Currently taking: yes ?? Diagnosis for this medication: IBS-D ?? ICD-10 code: K58.0 ? Prior medications trialed in this patient: ?xifaxan ?? lomotil ?? imodium ? Medication: Outcome/Adverse Reactions:??treatment failure ?? Decision:??approved ?? Tracking number/Case number/Reference number: ?[id number] ? Effective date: ??End: 09/16/2020 documented in this encounter Plan of Treatment Not on file documented as of this encounter Visit Diagnoses Not on filedocumented in this encounter Care Teams Porter Used Car Lot Relationship Specialty Start Date End Date Cb [place] PA [address] [place] [address] PCP - General Family Medicine 11/13/18 03/29/20 documented as of this encounter
--- OUTSIDE RECORDS SUMMARY | 2024-07-24 00:48 | XMS_ITS | Encounter Summary ---
Author Organization [facility] [place] [address] Care Team Providers Care Collection Supervisor Name Role Phone Cb [place] Primary Care Provider +1- [phone] Encounter Details Date Type Department Care Team (Latest Contact Info) Description 06/01/2020 11:00 AM EDT TH Visit (TeleHealth) [place] [address] Erika Reyez, [facility] [place] [address] Essential tremor; Hand paresthesia, unspecified laterality Social [...] a new prescription to your pharmacy in [place]. Let me know if you have any problems with the increase in dosage. Erika Reyez DO documented in this encounter Progress Notes * Erika Reyez DO - 06/01/2020 11:00 AM EDT Movement Disorders Telehealth Follow-up Note [facility] Poppy Del Cid Raheelthor presents [...] to Visit Medication Sig Dispense Refill ??? Hit Streak Music Blue Test Strip Strip USE 1 STRIP [...] CLASSIC OXYGEN CONCENTRATOR MISC) 3 L by [facility].(Non-Drug; Combo Route) route nightly. ??? [...] Inhalational Spacing Device Spcr 2 puffs by [facility].(Non-Drug; Combo Route) route daily. ??? [...] given her a new prescription to the [facility] pharmacy in [place] for his 600 mg tablets. She can follow-up with me in 1 year. All questions were answered. The patient was told to call with any additional questions or concernsthat should arise in the interim. Erika Reyez D.O. Movement Disorders [place] [address] TEL: [phone] FAX: [phone] [email or web address] documented in this encounter Plan of Treatment Not on file documented as of this encounter Visit Diagnoses Diagnosis Essential tremor Essential and other specified forms of tremor Hand paresthesia, unspecified laterality documented in this encounter Care Teams Collection Supervisor Relationship Specialty Start Date End Date Cb [place] [address] [place] [address] PCP - General Family Medicine 04/08/20 documented as of this encounter
--- OUTSIDE RECORDS SUMMARY | 2024-07-24 00:48 | XMS_ITS | Encounter Summary ---
Author Organization [facility] [place] [address] Care Team Providers Care Associate Pathologist Name Role Phone Cb [place] Primary Care Provider +1- [phone] Reason for Visit * Reason Comments Follow-up Encounter Details Date Type Department Care Team (Late st Contact Info) Description 07/29/2020 3:30 PM EST Office [place] [address] Osmany Holloway MD [facility] [place] [address] COPD, moderate; PAH (pulmonary artery hypertension) Social [...] in this encounter Progress Notes * Osmany Hloloway MD - 07/29/2020 3:30 PM EST Images from the original note were not included. ? DEPARTMENT ??OF MEDICINE ?SECTION OF PULMONARY AND CRITICAL CARE??MEDICINE Pulmonary and Critical Care Medicine [facility] [place] [address] Outpatient follow-up visit Follow-up 59 y.o. female [...] 3 times daily. 90 tablet 5 ??? Beyond Oblivionuch Ultra Blue Test Strip Strip USE 1 [...] tablet by mouth 2 times daily. 60 [id number] ??? baclofen (LIORESAL) 10 mg Tablet Take 10 mg by mouth 3 times daily. Takes 20mg at night ??? SYMBICORT 160-4.5 mcg/actuation HFA Aerosol Inhaler Inhale 2 puffs into the lungs 2 times daily. ??? OXYGEN-AIR DELIVERY SYSTEMS ( CLASSIC OXYGEN CONCENTRATOR MISC) 3 L by [facility] [...] 25 minute visit was spent in direct [id number] counseling with the patient regarding the management [...] / FVC LLN 68 % COMPAS PFT LNJ63-43 Actual Pre-BD 0.68 L/s COMPAS PFT FFO91-59 Pre-BD % of Predicted 32 % COMPAS PFT XDX06-35 Predicted 2.14 L/s COMPAS PFT WEG10-81 Pre-BD Z-Score -2.58 COMPAS PFT DLCO Hb [...] diseases documented in this encounter Care Teams Associate Pathologist Relationship Specialty Start Date End Date Cb Florence [address] [place] [address] PCP - General Family Medicine 04/08/20 documented as of this encounter
--- OUTSIDE RECORDS SUMMARY | 2024-07-24 00:48 | XMS_ITS | Encounter Summary ---
Author Organization [facility] [address] Care Team Providers Care Insulation And Flooring Assembler Name Role Phone Cb [place] Primary Care Provider +1- [phone] Encounter Details Date Type Department Care Team (Latest Contact Info) Description 05/27/2020 8:30 AM EDT Procedure [place] [address] Marshall Montgomery MD [facility] [place] [address] Hand paresthesia, unspecified laterality Social History Tobacco [...] STRUCTUAL performed by Rios Acuna MD at [facility] OR ??? PRO ANTERIOR INSTRUMENTATION 2-3 VERTEBRAL SEGMENTS 09/08/2013 @ANT. SPINAL INSTRUMENTATION, 2-3 VERTEBRA, SEGMENTED performed by Rios Acuna MD at [facility] ??? PRO ARTHRD ANT INTERDY CERVCL BELW C2 EA ADDL NTRSPC 09/08/2013 @ARTHRODESIS ANT INTERBDY CERVCL BELOW C2 EA ADDL INTRSPACE performed by Rios Acuna MD at [facility] OR ??? PRO ARTHRODESIS, ANT INTERBODY,DECOMPRESSION; CERVICAL BELOW C2 09/08/2013 ARTHRODESIS, ANT INTERBODY,DECOMPRESSION; CERVICAL BELOW C2 performed by Rios Acuna MD at [facility] OR ??? PRO DECOMPRESS SPINAL CORD, 1 SEG Right 08/31/2014 TRANSPEDICULAR LUMBAR DECOMPRESSION SPINAL CORD,EQUINA & NERVE ROOTS, ONE LVL. performed by Rios Acuna MD at [facility] OR ??? PRO LAP, CHOLECYSTECTOMY/GRAPH 11/04/2012 LAPAROSCOPIC CHOLECYSTECTOMY WITH CHOLANGIOGRAM performed by Abel Carlton MD at [facility] OR ??? PRO UPPER GI ENDOSCOPY, BIOPSY N/A 10/26/2015 UPPER GASTROINTESTINAL ENDOSCOPY,WITH BIOPSY SINGLE OR MULTIPLE performed by Apolinar Sepulveda MDat [facility] ENDOSCOPY ??? PRO UPPER GI ENDOSCOPY, DIAGNOSTIC N/A 10/26/2015 EGD, UPPER GI ENDOSCOPY performed by Apolinar Sepulveda MD at [facility] ENDOSCOPY ??? PRO UPPER GI ENDOSCOPY, DIAGNOSTIC N/A 10/02/2016 EGD, UPPER GI ENDOSCOPY performed by Justin Starkey MD at [facility] ENDOSCOPY ??? PRO UPPER GI ENDOSCOPY, W/DIR SUBMUC INJ 11/05/2017 EGD, W DIRECTED SUBMUCOSAL INJECTION(S) performed by Osmany Keller MD at [facility] ENDOSCOPY Medications: Current Outpatient Medications on File Prior to Visit Medication Sig Dispense Refill ??? My [employer]box Ultra Blue Test Strip Strip USE 1 [...] CLASSIC OXYGEN CONCENTRATOR MISC) 3 L by [facility]Non-Drug; Combo Route) route nightly. ??? diphenoxylate-atropine (LOMOTIL) [...] [facility]Non-Drug; Combo Route) route daily. ??? promethazine (PHENERGAN) [...] laterality documented in this encounter Care Teams Insulation And Flooring Assembler Relationship Specialty Start Date End Date Cb [place] PA [address] [place] [address] PCP - General Family Medicine 04/08/20 documented as of this encounter
--- OUTSIDE RECORDS SUMMARY | 2024-07-24 00:48 | XMS_ITS | Encounter Summary ---
[place] [address] Care Team Providers Care Interpreter Name Role Phone Cb [place] Primary Care Provider +1- [phone] Reason for Visit * Reason Onset Date Comments Oxygen Dependence 03/23/2019 Written Confir mation of an order for oxygen Encounter Details Date Type Department Care Team (Late st Contact Info) Description 03/23/2019 Telephone [place] [address] Suzanne Sears RN Oxygen Dependence [...] submission confirmation time stamped for 03/23/2019, @ 5833. Copy sent to scanning for inclusion to patient records. documented in this encounter Plan of Treatment Not on file documented as of this encounter Visit Diagnoses Not on filedocumented in this encounter Care Teams Interpreter Relationship Specialty Start Date End Date Cb [place] PA [address] [place] [address] PCP - General Family Medicine 11/13/18 03/29/20 documented as of this encounter
--- OUTSIDE RECORDS SUMMARY | 2024-07-24 00:48 | XMS_ITS | Encounter Summary ---
Author Organization [facility] [place] [address] Care Team Providers Care Orchid Hand Name Role Phone Cb [place] Primary Care Provider +1- [phone] Reason for Visit * Reason Onset Date Comments TeleHealth 05/31/2020 apt 06/01 Encounter Details Date Type Department Care Team (Late st Contact Info) Description 05/31/2020 [place] [address] [facility] [facility] [place] [address] TeleHealth (apt 06/01) Social History Tobacco Use [...] on filedocumented in this encounter Care Teams Orchid Hand Relationship Specialty Start Date End Date Cb [place] PA [address] [place] [address] PCP - General Family Medicine 04/08/20 documented as of this encounter
--- OUTSIDE RECORDS SUMMARY | 2024-07-24 00:48 | XMS_ITS | Encounter Summary ---
Author Organization [facility] [place] [address] Care Team Providers Care Mold Filler Plastic Dolls Name Role Phone Cb [place] Primary Care Provider +1- [phone] Encounter Details Date Type Department Care Team (Late st Contact Info) Description 10/08/2019 Orders [place] [address] Osmany Holloway MD [facility] [place] [address] Chronic obstructive pulmonary disease, unspecified COPD type [...] type documented in this encounter Care Teams Mold Filler Plastic Dolls Relationship Specialty Start Date End Date Cb [place] PA [address] [place] [address] PCP - General Family Medicine 11/13/18 03/29/20 documented as of this encounter
--- OUTSIDE RECORDS SUMMARY | 2024-07-24 00:48 | XMS_ITS | Encounter Summary ---
[place] [address] Care Team Providers Care Spray Mixer Name Role Phone Cb [place] Primary Care Provider +1- [phone] Encounter Details Date Type Department Care Team (Late st Contact Info) Description 04/22/2020 Telephone [place] [address] Kena Pagan Social History Tobacco Use Types Packs/Day Years [...] on filedocumented in this encounter Care Teams Spray Mixer Relationship Specialty Start Date End Date Cb [place] PA [address] [place] [address] PCP - General Family Medicine 04/08/20 documented as of this encounter
--- OUTSIDE RECORDS SUMMARY | 2024-07-24 00:48 | XMS_ITS | Encounter Summary ---
Author Organization [facility] [place] [address] Care Team Providers Care Dog Hair Clipper Name Role Phone Cb [place] Primary Care Provider +1- [phone] Reason for Visit * Consultation (Routine) - Specialty Diagnoses / Procedures Referred By Chava alejo Referred To Contact Neurology Diagnoses Unspecified abnormal involuntary movements Cb [place] PA [address] [place] [address] [facility] [address] [place] [address] Referral ID Status Reason Start Date Expiration Date V isits Requested Visits Authorized [id number] Consult, Test & Treat PCP Updated and/or Approved 03/10/2020 03/10/2021 6 6 Encounter Details Date Type Department Care Team (Late st Contact Info) Description 04/14/2020 10:00 AM EDT [place] [address] Erika Reyez, [facility] [place] [address] Essential tremor; Paresthesias Social History [...] 10:00 AM EDT Movement Disorders Consultation Note [facility] Reason for Consultation It is my [...] STRUCTUAL performed by Rios Acuna MD at [facility] MAIN OR ??? PRO ANTERIOR INSTRUMENTATION 2-3 VERTEBRAL SEGMENTS 09/08/2013 @ANT. SPINAL INSTRUMENTATION, 2-3 VERTEBRA, SEGMENTED performed by Rios Acuna MD at [facility] [place] ??? PRO ARTHRD ANT INTERDY CERVCL BELW C2 EA ADDL NTRSPC 09/08/2013 @ARTHRODESIS ANT INTERBDY CERVCL BELOW C2 EA ADDL INTRSPACE performed by Rios Acuna MD at [facility] MAIN OR ??? PRO ARTHRODESIS, ANT INTERBODY,DECOMPRESSION; CERVICAL BELOW C2 09/08/2013 ARTHRODESIS, ANT INTERBODY,DECOMPRESSION; CERVICAL BELOW C2 performed by Rios Acuna MD at [facility] MAIN OR ??? PRO DECOMPRESS SPINAL CORD, 1 SEG Right 08/31/2014 TRANSPEDICULAR LUMBAR DECOMPRESSION SPINAL CORD,EQUINA & NERVE ROOTS, ONE LVL. performed by Rios Acuna MD at [facility] MA[facility] OR ??? PRO LAP, CHOLECYSTECTOMY/GRAPH 11/04/2012 LAPAROSCOPIC CHOLECYSTECTOMY WITH CHOLANGIOGRAM performed by Abel Carlton MD at [facility] MAIN OR ??? PRO UPPER GI ENDOSCOPY, BIOPSY N/A 10/26/2015 UPPER GASTROINTESTINAL ENDOSCOPY,WITH BIOPSY SINGLE OR MULTIPLE performed by Apolinar Sepulveda MDat [facility] ENDOSCOPY ??? PRO UPPER GI ENDOSCOPY, DIAGNOSTIC N/A 10/26/2015 EGD, UPPER GI ENDOSCOPY performed by Apolinar Sepulveda MD at [facility] ENDOSCOPY ??? PRO UPPER GI ENDOSCOPY, DIAGNOSTIC N/A 10/02/2016 EGD, UPPER GI ENDOSCOPY performed by Justin Starkey MD at [facility] ENDOSCOPY ??? PRO UPPER GI ENDOSCOPY, W/DIR SUBMUC INJ 11/05/2017 EGD, W DIRECTED SUBMUCOSAL INJECTION(S) performed by Osmany Keller MD at [facility] ENDOSCOPY Current Medications See updated medication list below. Medications 04/14/20 0988 Medication Sig Taking? eluxadoline (Viberzi) 100 mg [...] CLASSIC OXYGEN CONCENTRATOR MISC) 3 L by [facility].(Non-Drug; Combo Route) route nightly. Yes diphenoxylate-atropine (LOMOTIL) [...] 1 tablet by mouth 2 times daily. [facility] Face mask for nocturnal O2 Patient not taking: Reported on 08/21/2017 chlorpheniramine (CHLOR-TRIMETON) 4 mg Tablet Take 4 mg by mouth every 6 hours as needed for Allergies. Inhalational Spacing Device Spcr 2 puffs by [facility].(Non-Drug; Combo Route) route daily. fluticasone (FLONASE) 50 [...] on phone: None Gets together: None Attends judaism service: None Active member of club or [...] touch, pin, vibration, and temperture stimuli. Cerebellar: [id number] test and heel to awan of upper [...] 71 11/25/2018 Lab Results Component Value Date [id number] 11/15/2018 Lab Results Component Value Date [...] Erika Reyez D.O. Movement [place] [address] TEL: [phone] FAX: [phone] [email or web address] documented in this encounter Plan of Treatment Not on file documented as of this encounter Visit Diagnoses Diagnosis Essential tremor Essential and other specified forms of tremor Paresthesias Disturbance of skin sensation documented in this encounter Care Teams Dog Hair Clipper Relationship Specialty Start Date End Date Cb [place] PA [address] [place] [address] PCP - General Family Medicine 04/08/20 documented as of this encounter
--- OUTSIDE RECORDS SUMMARY | 2024-07-24 00:48 | XMS_ITS | Encounter Summary ---
Author Organization [facility] [place] [address] Care Team Providers Care Software Release Engineer Name Role Phone Cb [place] Primary Care Provider +1- [phone] Reason for Visit * Reason Comments Medication Refill Encounter Details Date Type Department Care Team (Late st Contact Info) Description 02/14/2020 Refill Internal Medicine at [address] [address] Vito Hartman MD [facility] GENERAL [place] [address] Social History Tobacco Use Types Packs/Day Years [...] on filedocumented in this encounter Care Teams Software Release Engineer Relationship Specialty Start Date End Date Cb [place] PA [address] [place] [address] PCP - General Family Medicine 04/08/20 documented as of this encounter
--- OUTSIDE RECORDS SUMMARY | 2024-07-24 00:48 | XMS_ITS | Encounter Summary ---
[place] [address] Care Team Providers Care Air Brake Rigger Name Role Phone Cb [place] Primary Care Provider +1- [phone] Encounter Details Date Type Department Care Team (Late st Contact Info) Description 11/03/2019 Telephone [place] [address] Beth Riggs Social History Tobacco Use Types [...] filedocumented in this encounter Care Teams Air Brake Rigger Relationship Specialty Start Date End Date Cb [place] PA [address] [place] [address] PCP - General Family Medicine 11/13/18 03/29/20 documented as of this encounter
--- OUTSIDE RECORDS SUMMARY | 2024-07-24 00:48 | XMS_ITS | Encounter Summary ---
Author Organization [facility] [place] [address] Care Team Providers Care Liquor Merchant Name Role Phone Cb Florence Primary Care Provider +1- [phone] Encounter Details Date Type Department Care Team (Late st Contact Info) Description 01/20/2021 3:30 PM EDT Office [place] [address] Osmany Holloway MD [facility] [place] [address] Chronic obstructive pulmonary disease, unspecified COPD type; [...] Pulmonary and Critical Care Medicine [facility] [place] [address] Outpatient follow-up visit Follow-up 60 y.o. female [...] 3 times daily. 90 tablet 5 ??? Mavrxuch Ultra Blue Test Strip Strip USE 1 [...] DIRECTED ON PA ??? Miscellaneous Medical Supply [facility] Face mask for nocturnal O2, and appropriate [...] tablet by mouth 2 times daily. 60 [id number] ??? SYMBICORT 160-4.5 mcg/actuation HFA Aerosol Inhaler Inhale 2 puffs into the lungs 2 times daily. ??? albuterol (PROVENTIL) 2.5 mg /3 mL (0.083 %) Solution for Nebulization Take 2.5 mg by nebulization every 4 hours as needed for Wheezing. ??? OXYGEN-AIR DELIVERY SYSTEMS ( CLASSIC OXYGEN CONCENTRATOR [facility] [place]) 3 L by [facility]Non-Drug; Combo Route) route nightly. ??? diphenoxylate-atropine (LOMOTIL) [...] [place].(Non-Drug; Combo Route) route daily. ??? promethazine (PHENERGAN) [...] 25 minute visit was spent in direct egvb-kl-pbny counseling with the patient regarding the management [...] morphotypes suggestive of normal upper respiratory caryn [facility] Gram Stain Moderate Neutrophils seen Moderate squamous epithelial cells Many mixed bacterial morphotypes suggestive of normal upper respiratory caryn [facility] Sputum Expectorated 01/21/20 4:40 PM EDT 01/20/2021 5:04 PM EDT Narrative Resulting Agency Comment Spec In Lab Osmany Overton MD MICROBIOLOGY - GENE RAL ORDERABLES Performing Organization Address City/[facility]/ZIP Co de Phone Number [facility] [place] [address] * AFB culture Sputum Expectorated (01/20/2021 4:40 PM EDT) Acid Fast Bacilli Culture No Acid Fast Bacilli isolated If active tuberculosis is suspected, the patient should be on AIR[employer]ORNE PRECAUTIONS. Call Infection Prevention for assistance if needed. [facility] Acid Fast Stain No Acid Fast Bacilli seen [facility] Sputum Expectorated 01/21/20 4:40 PM EDT 01/20/2021 5:05 PM EDT Narrative Resulting Agency Comment Spec In Lab Osmany Overton MD MICROBIOLOGY - GENE RAL ORDERABLES Performing Organization Address [facility]/ZIP Co de Phone Number [facility] [place] [address] documented in this encounter Visit Diagnoses Diagnosis Chronic obstructive pulmonary disease, unspecified COPD type COPD, moderate Chronic airway obstruction, not elsewhere classified documented in this encounter Care Teams Liquor Merchant Relationship Specialty Start Date End Date Cb Florence PA [address] [place] [address] PCP - General Family Medicine 04/08/20 documented as of this encounter
--- OUTSIDE RECORDS SUMMARY | 2024-07-24 00:48 | XMS_ITS | Encounter Summary ---
Author Organization [facility] [address] Care Team Providers Care Press Cleaner Name Role Phone Cb [place] Primary Care Provider +1- [phone] Encounter Details Date Type Department Care Team (Latest Contact Info) Description 04/08/2020 12:53 PM EDT - 04/08/2020 11:59 PM EDT Hospital [place] [address] COPD, moderate Discharge Disposition: Home Social History [...] CLASSIC OXYGEN CONCENTRATOR MISC) 3 L by [place].(Non-Drug; Combo Route) route nightly. diphenoxylate-atropin e (LOMOTIL) 2.5-0.025 mg Tablet Take 1 tablet by mouth 4 times daily. DO NOT restarted this unless you are having diarrhea. 120 tablet 7 06/11/2014 albuterol (PROVENTIL HFA;VENTOLIN HFA) 90 mcg/actuation HFA Aerosol Inhaler Inhale 2 puffs into the lungs every 4 hours as needed. Use with spacer Inhalational Spacing Device Spcr 2 puffs by [place].(Non-Drug; Combo Route) route daily. promethazine (PHENERGAN) 25 [...] sulfamethoxazole-trim ethoprim DS (Bactrim DS) 800-160 mg TabletIndications:CLINIC LICENSED PRACTICAL NURSE D, moderate Take 1 tablet by mouth [...] classified documented in this encounter Care Teams Press Cleaner Relationship Specialty Start Date End Date Cb Florence PA [address] [place] [address] PCP - General Family Medicine 04/08/20 documented as of this encounter
--- OUTSIDE RECORDS SUMMARY | 2024-07-24 00:48 | XMS_ITS | Encounter Summary ---
Author [place] [address] Care Team Providers Care Saddle Stitch Operator Name Role Phone Cb [place] Primary Care Provider +1- [phone] Encounter Details Date Type Department Care Team (Late st Contact Info) Description 04/11/2020 [place] [phone] Lamont Cardenas Social History Tobacco Use Types [...] on filedocumented in this encounter Care Teams Saddle Stitch Operator Relationship Specialty Start Date End Date Cb Florence PA [address] [place] [address] PCP - General Family Medicine 04/08/20 documented as of this encounter
--- OUTSIDE RECORDS SUMMARY | 2024-07-24 00:48 | XMS_ITS | Encounter Summary ---
[place] [address] Care Team Providers Care Dry Primer Powder Blender Name Role Phone Cb [place] Primary Care Provider +1- [phone] Reason for Visit * Reason Onset Date Comments Pre Procedure Call 05/04/2021 Encounter Details Date Type Department Care Team (Late st Contact Info) Description 05/04/2021 Telephone [place] [address] Virgie Lopez RN Pre Procedure [...] reference. Signed Consent Form passed to the [employer] materials director for scanning. Reviewed with that she is [...] filedocumented in this encounter Care Teams Dry Primer Powder Blender Relationship Specialty Start Date End Date Cb Florence PA [address] [place] [address] PCP - General Family Medicine 04/08/20 documented as of this encounter
--- OUTSIDE RECORDS SUMMARY | 2024-07-24 00:48 | XMS_ITS | Encounter Summary ---
Author Organization [facility] [address] Care Team Providers Care Elephant Keeper Name Role Phone Cb [place] Primary Care Provider +1- [phone] Encounter Details Date Type Department Care Team (Latest Contact Info) Description 10/09/2019 8:00 AM EST - 10/09/2019 11:59 PM [facility] Hospital [place] [address] Chronic obstructive pulmonary disease, unspecified COPD type [...] Inhalational Spacing Device Spcr 2 [facility]; Combo Route) route daily. promethazine (PHENERGAN) [...] sulfamethoxazole-trim ethoprim DS (Bactrim DS) 800-160 mg TabletIndications:ARCADE TECHNICIAN D, moderate Take 1 tablet by mouth [...] type documented in this encounter Care Teams Elephant Keeper Relationship Specialty Start Date End Date Cb Florence PA [address] [place] [address] PCP - General Family Medicine 11/13/18 03/29/20 documented as of this encounter
--- OUTSIDE RECORDS SUMMARY | 2024-07-24 00:48 | XMS_ITS | Encounter Summary ---
[place] [address] Care Team Providers Care Dtp Operator Name Role Phone Cb [place] Primary Care Provider +1- [phone] Reason for Visit * Reason Onset Date Comments Oxygen Dependence 02/02/2020 Written Confir mation of Oxygen Order Encounter Details Date Type Department Care Team (Late st Contact Info) Description 02/02/2020 Telephone [place] [address] Suzanne Sears RN Oxygen Dependence [...] Oxygen form, signed by Dr. Holloway, to [employer]. This covered the following: E1392 - Portable Oxygen E1390 - Concentrator Oxlife 3 LPM Fax submission confirmation time stamped for 02/02/2020 @ 4737. 2 pages with cover sheet. Copy of Written Confirmation of Order form sent to scanning for inclusion to patient records. documented in this encounter Plan of Treatment Not on file documented as of this encounter Visit Diagnoses Not on filedocumented in this encounter Care Teams Dtp Operator Relationship Specialty Start Date End Date Cb Florence PA [address] [place] [address] PCP - General Family Medicine 11/13/18 03/29/20 documented as of this encounter
--- OUTSIDE RECORDS SUMMARY | 2024-07-24 00:48 | XMS_ITS | Encounter Summary ---
Author Organization [facility] [place] [address] Care Team Providers Care Shake Packer Name Role Phone Cb [place] Primary Care Provider +1- [phone] Reason for Visit * Diagnostic Test (Routine) - Closed Specialty Diagnoses / Procedures Referred By Chava alejo Referred To Contact Radiology Diagnoses Type 2 diabetes mellitus with complication, with long-term current use of insulin Procedures NM Gastric Emptying Scan Mary Alice Scanlon MD [facility] GENERAL [place] [address] [place] [address] Referral ID Status Reason Start Date Expiration Date V isits Requested Visits Authorized [id number] Closed Specialty Service Requested 10/08/2018 10/08/2019 1 1 Encounter Details Date Type Department Care Team (Latest Contact Info) Description 01/01/2019 9:47 AM EDT - 01/01/2019 11:59 PM EDT Hospital Encounter [place] [address] Osmany Keller MD [facility] [place] [address] Discharge Disposition: Home Social History [...] on filedocumented in this encounter Care Teams Shake Packer Relationship Specialty Start Date End Date Cb Florence PA [address] [place] [address] PCP - General Family Medicine 11/13/18 03/29/20 documented as of this encounter
--- OUTSIDE RECORDS SUMMARY | 2024-07-24 00:48 | XMS_ITS | Encounter Summary ---
[place] [address] Care Team Providers Care Aerospace Engineer Officer Armament Name Role Phone Cb [place] Primary Care Provider +1- [phone] Reason for Visit * Reason Onset Date Comments Oxygen Dependence 01/27/2021 Certificate of Medical Necessity Encounter Details Date Type Department Care Team (Late st Contact Info) Description 01/27/2021 Telephone [place] [address] Suzanne Sears RN Oxygen Dependence (Certificate of [...] for Oxygen, signed by Dr. Holloway, to [facility]. This covered the following [...] on filedocumented in this encounter Care Teams Aerospace Engineer Officer Armament Relationship Specialty Start Date End Date Cb Florence PA [address] [place] [address] PCP - General Family Medicine 04/08/20 documented as of this encounter
--- OUTSIDE RECORDS SUMMARY | 2024-07-24 00:48 | XMS_ITS | Encounter Summary ---
[place] [address] Care Team Providers Care Reel Stripper Name Role Phone Cb [place] Primary Care Provider +1- [phone] Encounter Details Date Type Department Care Team (Late st Contact Info) Description 12/09/2019 Telephone [place] [address] Stef Paul, RN Social History Tobacco Use [...] completion of your call. Will send a [facility] message to patient asking her to [...] on filedocumented in this encounter Care Teams Reel Stripper Relationship Specialty Start Date End Date Cb Florence PA [address] [place] [address] PCP - General Family Medicine 11/13/18 03/29/20 documented as of this encounter
--- OUTSIDE RECORDS SUMMARY | 2024-07-24 00:48 | XMS_ITS | Encounter Summary ---
[place] [address] Care Team Providers Care Wholesale Parts Salesperson Name Role Phone Cb [place] Primary Care Provider +1- [phone] Reason for Visit * Reason Onset Date Comments Other 05/13/2020 faxed order for O2 face mask, demographics and chart note to [facility] Encounter Details Date Type Department Care Team (Late st Contact Info) Description 05/13/2020 Telephone [place] [address] Julia Marshall, RN Other (faxed order for O2 face mask, demographics and chart note to [facility]) Social History Tobacco Use Types Packs/Day Years [...] on filedocumented in this encounter Care Teams Wholesale Parts Salesperson Relationship Specialty Start Date End Date Cb Florence PA [address] [place] [address] PCP - General Family Medicine 04/08/20 documented as of this encounter
--- OUTSIDE RECORDS SUMMARY | 2024-07-24 00:48 | XMS_ITS | Encounter Summary ---
Author Organization [facility] [place] [address] Care Team Providers Care Mine Motor Operator Name Role Phone Cb [place] Primary Care Provider +1- [phone] Reason for Visit * Reason Comments Follow-up Encounter Details Date Type Department Care Team (Late st Contact Info) Description 10/09/2019 9:00 AM EST Office [place] [address] Osmany Holloway MD [facility] [place] [address] Thrush, oral; COPD, moderate; Gastroesophageal reflux disease, [...] CRITICAL CARE??MEDICINE Pulmonary and Critical Care Medicine [facility] [address] Outpatient follow-up visit Follow-up 59 y.o. female [...] tablet by mouth 2 times daily. 60 [id number] ??? baclofen (LIORESAL) 10 mg Tablet Take [...] CLASSIC OXYGEN CONCENTRATOR MISC) 3 L by [facility] [place].(Non-Drug; Combo Route) route [...] Inhalational Spacing Device Spcr 2 puffs by [facility].(Non-Drug; Combo Route) route [...] 90 tablet 3 ??? Miscellaneous Medical Supply [facility] Face mask for [...] this 25-minute visit was spent in direct jnqd-gw-[id number] counseling with the patient regarding the management [...] [facility] Gram Stain Moderate squamous epithelial cells seen Many Neutrophils seen Many normal upper respiratory caryn [facility] Sputum specimen (specimen) 10/09/2019 10:27 AM EST 10/09/2019 12:22 PM EST Narrative Resulting Agency Comment Spec In Lab Osmany Overton MD MICROBIOLOGY - GENE [facility] ORDERABLES [facility] [place] [address] documented in this encounter Visit Diagnoses Diagnosis Thrush, oral Candidiasis of mouth COPD, moderate Chronic airway obstruction, not elsewhere classified Gastroesophageal reflux disease, esophagitis presence not specified COPD, moderate Chronic airway obstruction, not elsewhere classified documented in this encounter Care Teams Mine Motor Operator Relationship Specialty Start Date End Date Cb Florence PA [address] [place] [address] PCP - General Family Medicine 11/13/18 03/29/20 documented as of this encounter
--- OUTSIDE RECORDS SUMMARY | 2024-07-24 00:49 | XMS_ITS | Encounter Summary ---
Author Organization [facility] [address] Care Team Providers Care Quality Assurance Lead Name Role Phone Cb [place] Primary Care Provider +1- [phone] Reason for Visit * Diagnostic Test (Routine) - Closed Specialty Diagnoses / Procedures Referred By Chava alejo Referred To Contact Radiology Diagnoses Type 2 diabetes mellitus with complication, with long-term current use of insulin Procedures NM Gastric Emptying Scan Mary Alice Scanlon MD [facility] GENERAL [place] [address] [place] [address] Referral ID Status Reason Start Date Expiration Date V isits Requested Visits Authorized [id number] Closed Specialty Service Requested 10/08/2018 10/08/2019 1 1 Encounter Details Date Type Department Care Team (Latest Contact Info) Description 01/01/2019 9:44 AM EDT - 01/01/2019 9:45 AM EDT Hospital En[place] [address] Osmany Keller MD [facility] [place] [address] Discharge Disposition: Home Social [...] below. ? Electronically signed by: Anatoliy Flores [facility] ([phone]), at 01/01/2019 5:35 PM Narrative 01/01/2019 5:35 [...] filedocumented in this encounter Care Teams Quality Assurance Lead Relationship Specialty Start Date End Date Cb Florence PA [address] [place] [address] PCP - General Family Medicine 11/13/18 03/29/20 documented as of this encounter
--- OUTSIDE RECORDS SUMMARY | 2024-07-24 00:49 | XMS_ITS | Encounter Summary ---
[place] [address] Care Team Providers Care Pigment Making Supervisor Name Role Phone Cb Florence Primary Care Provider +1- [phone] Reason for Visit * Reason Onset Date Comments Other 12/12/2018 Nebulizer Order Encounter Details Date Type Department Care Team (Late st Contact Info) Description 12/12/2018 [place] [address] Suzanne Sears RN Other (Nebulizer [...] submission confirmation time stamped for 12/12/2018 @ 6041. 2 pages. documented in this encounter Plan of Treatment Not on file documented as of this encounter Visit Diagnoses Not on filedocumented in this encounter Care Teams Pigment Making Supervisor Relationship Specialty Start Date End Date Cb Florence PA [address] [place] [address] PCP - General Family Medicine 11/13/18 03/29/20 documented as of this encounter
--- OUTSIDE RECORDS SUMMARY | 2024-07-24 00:49 | XMS_ITS | Encounter Summary ---
Author Organization [facility] [address] Care Team Providers Care Drafter Marine Name Role Phone Cb Florence Primary Care Provider +1- [phone] Reason for Visit * Diagnostic Test (Routine) - Closed Specialty Diagnoses / Procedures Referred By Chava alejo Referred To Contact Radiology Diagnoses Type 2 diabetes mellitus with complication, with long-term current use of insulin Procedures NM Gastric Emptying Scan Mary Alice Scanlon MD [facility] [place] [address] [place] [address] Referral ID Status Reason Start Date Expiration Date V isits Requested Visits Authorized [id number] Closed Specialty Service Requested 10/08/2018 10/08/2019 1 1 Encounter Details Date Type Department Care Team (Latest Contact Info) Description 01/01/2019 9:46 AM EDT Hospital En[place] [address] Osmany Keller MD [facility] [place] [address] Discharge Disposition: Home Social History [...] 2 times daily. 05/02/2016 OXYGEN-AIR DELIVERY SYSTEMS ([employer] CLASSIC OXYGEN CONCENTRATOR MISC) 3 L by [facility].(Non-Drug; Combo Route) route nightly. diphenoxylate-atropin e (LOMOTIL) [...] filedocumented in this encounter Care Teams Drafter Marine Relationship Specialty Start Date End Date Cb Florence PA [address] [place] [address] PCP - General Family Medicine 11/13/18 03/29/20 documented as of this encounter
--- OUTSIDE RECORDS SUMMARY | 2024-07-24 00:49 | XMS_ITS | Encounter Summary ---
[place] [address] Care Team Providers Care Engineer Geophysical Laboratory Name Role Phone Cb Florence Primary Care Provider +1- [phone] Reason for Referral * Diagnostic Test (Routine) - Closed Specialty Diagnoses / Procedures Referred By Chava alejo Referred To Contact Radiology Diagnoses Type 2 diabetes mellitus with complication, with long-term current use of insulin Procedures NM Gastric Emptying Scan Mary Alice Scanlon MD [facility] [place] [address] [place] [address] Referral ID Status Reason Start Date Expiration Date V isits Requested Visits Authorized [id number] Closed Specialty Service Requested 10/08/2018 10/08/2019 1 1 Reason for Visit * Diagnostic Test (Routine) - Closed Specialty Diagnoses / Procedures Referred By Chava alejo Referred To Contact Radiology Diagnoses Type 2 diabetes mellitus with complication, with long-term current use of insulin Procedures NM Gastric Emptying Scan Mary Alice Scanlon MD [facility] [address] [place] [address] [place] [address] Referral ID Status Reason Start Date Expiration Date V isits Requested Visits Authorized [id number] Closed Specialty Service Requested 10/08/2018 10/08/2019 1 1 Encounter Details Date Type Department Care Team (Latest Contact Info) Description 01/01/2019 9:30 AM EDT - 01/01/2019 9:43 AM EDT Hospital Encounter [place] [address] Osmany Keller MD [facility] [place] [address] Type 2 diabetes mellitus with complication, with [...] Inhalational Spacing Device Spcr 2 puffs by [facility].(Non-Drug; Combo Route) route daily. promethazine (PHENERGAN) 25 [...] mCi documented in this encounter Care Teams Engineer Geophysical Laboratory Relationship Specialty Start Date End Date Cb Florence PA [address] [place] [address] PCP - General Family Medicine 11/13/18 03/29/20 documented as of this encounter
--- OUTSIDE RECORDS SUMMARY | 2024-07-24 00:49 | XMS_ITS | Encounter Summary ---
Author Organization [facility] [address] Care Team Providers Care Second Baller Name Role Phone Cb Florence Primary Care Provider +1- [phone] Reason for Visit * Diagnostic Test (Routine) - Closed Specialty Diagnoses / Procedures Referred By Chava alejo Referred To Contact Radiology Diagnoses Type 2 diabetes mellitus with complication, with long-term current use of insulin Procedures NM Gastric Emptying Scan Mary Alice Scanlon MD [facility] [place] [address] [place] [address] Referral ID Status Reason Start Date Expiration Date V isits Requested Visits Authorized [id number] Closed Specialty Service Requested 10/08/2018 10/08/2019 1 1 Encounter Details Date Type Department Care Team (Latest Contact Info) Description 01/01/2019 9:46 AM EDT Hospital Encounter [place] [address] Osmany Keller MD [facility] [place] [address] Discharge Disposition: Home Social History [...] 2 times daily. 05/02/2016 OXYGEN-AIR DELIVERY SYSTEMS ([employer] CLASSIC OXYGEN CONCENTRATOR MISC) 3 L by [...] Electronically signed by: Anatoliy Flores [facility] ([phone]), at 01/01/2019 5:35 PM Narrative 01/01/2019 5:35 [...] than 10% at four hours) Procedure Note Anatoily Flores MD - 01/01/2019 EXAMINATION: NM GASTRIC [...] number below. Electronically signed by: Anatoliy Flores [facility]([phone]), at 01/01/2019 5:35 PM Osmany Overton MD IMG NM ORDERABLE S documented in this encounter Visit Diagnoses Not on filedocumented in this encounter Care Teams Second Baller Relationship Specialty Start Date End Date Cb Florence PA [address] [place] [address] PCP - General Family Medicine 11/13/18 03/29/20 documented as of this encounter
--- OUTSIDE RECORDS SUMMARY | 2024-07-24 00:49 | XMS_ITS | Encounter Summary ---
[place] [address] Care Team Providers Care Vice President Compliance Name Role Phone Cb Florence Primary Care Provider [phone] Reason for Visit * Reason Onset Date Comments Prior Authorization 11/28/2018 Encounter Details Date Type Department Care Team (Late st Contact Info) Description 11/28/2018 Telephone [place] [id number] Amanda Sanchez CCMA Prior Authorization Social History [...] Prior Authorization 4L Gastroenterology / Hepatology at [facility], [address] Subscriber Insurance: [employer] [facility] Part D Phone: Fax: Physician: Osmany Keller Return Pharmacy: [facility] Fax: Medication Requested: Viberzi Strength:100mg Frequency: Twice Daily Disp.: 180 Refills: 1 Currently taking: Diagnosis for this medication: IBS-D ICD-10 code: K58.0 Prior medications trialed in this patient: Medication: Outcome/Adverse Reactions: Decision: Approved Tracking number/Case number/Reference number: [id number] Effective date: 11/28/2018 to 05/30/2019 Start: End: documented in this encounter Plan of Treatment Not on file documented as of this encounter Visit Diagnoses Not on filedocumented in this encounter Care Teams Vice President Compliance Relationship Specialty Start Date End Date Cb Florence [address] [place] [address] PCP - General Family Medicine 11/13/18 03/29/20 documented as of this encounter
--- OUTSIDE RECORDS SUMMARY | 2024-07-24 00:50 | XMS_ITS | Encounter Summary ---
[facility] [address] Care Team Providers Care Saw Boss Name Role Phone Mary Alice Cage APRN Primary Care Provider Reason for Visit * Reason Onset Date Comments Medication Refill 11/03/2018 Encounter Details Date Type Department Care Team (Late st Contact Info) Description 11/03/2018 [place] [address] Osmany Keller MD [facility] [place] [address] Social History Tobacco Use Types Packs/Day Years [...] on filedocumented in this encounter Care Teams Saw Boss Relationship Specialty Start Date End Date Mary Alice Cage APRN PCP - General 10/12/11 11/12/18 documented as of this encounter
--- OUTSIDE RECORDS SUMMARY | 2024-07-24 00:50 | XMS_ITS | Encounter Summary ---
Author Organization [facility], [place] [address] Care Team Providers Care Packing Machine Pilot Can Router Name Role Phone YakimaMary Alice davis Rajendra ROY Primary Care Provider [phone] Reason for Visit * Reason Comments Follow-up Encounter Details Date Type Department Care Team (Late st Contact Info) Description 01/01/2018 9:30 AM EDT Office [place] [address] Osmany Keller MD [facility] [place] [address] Esophageal dysmotility; Irritable bowel syndrome with diarrhea; [...] 5. Left hand surgery April [facility], [facility] -??tendon release.. MEDICATION/DIET TRIALS 1. Neomycin [...] 20 of 30 minutes spent in direct [id number] counseling and the rest in taking history [...] specified documented in this encounter Care Teams Packing Machine Pilot Can Router Relationship Specialty Start Date End Date Mary Alice Cage APRN PCP - General 10/12/11 11/12/18 documented as of this encounter
--- OUTSIDE RECORDS SUMMARY | 2024-07-24 00:50 | XMS_ITS | Encounter Summary ---
Author Organization [facility] [place] [address] Care Team Providers Care Line Driver Name Role Phone Cb Florence Primary Care Provider [phone] Encounter Details Date Type Department Care Team (Late st Contact Info) Description 11/13/2018 7:45 PM EDT Ancillary Procedure Radiology Library at [facility] [place] [address] Andriy Valdez Jr., MD [facility] [place] [address] Social History Tobacco Use Types Packs/Day Years [...] DX Chest (11/13/2018 7:43 PM EDT) Narrative [facility] - 11/13/2018 7:43 PM EDT This exam is auto-finalizing. It's purpose is for storage only. Andriy Valdez Jr., MD IMG FILM LIBRARY ORDERABLES [place], [place] documented in this encounter Visit Diagnoses Not on filedocumented in this encounter Care Teams Line Driver Relationship Specialty Start Date End Date Cb Florence PA [address] [place] [address] PCP - General Family Medicine 11/13/18 03/29/20 documented as of this encounter
--- OUTSIDE RECORDS SUMMARY | 2024-07-24 00:50 | XMS_ITS | Encounter Summary ---
[place] [address] Care Team Providers Care Employee Benefits Administrator Name Role Phone Mary Alice Cage APRN Primary Care Provider [phone] Encounter Details Date Type Department Care Team (Late st Contact Info) Description 08/13/2018 Telephone [place] [address] Gardenia Bueno CMA GASTROENTEROLOGY DEPT Social History [...] 12:07 PM EST Gastroenterology / Hepatology at [facility]?[address]?[place] [address]? Subscriber Insurance: [employer] ?? Phone: ?Fax: ? Physician:?Osmany Keller ? Return ?? Pharmacy:?[facility] ?? Phone:??[phone] Fax:??[phone] ?? Medication Requested: ??Viberzi ?? Strength:??100 mg?Frequency: ??BID ?? Disp.: ??60?Refills: 5 ?? Currently taking: yes ?? Diagnosis for this medication: IBS-D ?? ICD-10 code: K58.0 ? Prior medications trialed in this patient: ??xifaxan,lomotil, imodium ? Medication: Outcome/Adverse Reactions:??treatment failure ?? Decision:??approved? Tracking number/Case number/Reference number: [id number] ? Effective date: ?? 04/29/2018 to 10/17/2018 (previously approved) documented in this encounter Plan of Treatment Not on file documented as of this encounter Visit Diagnoses Not on filedocumented in this encounter Care Teams Employee Benefits Administrator Relationship Specialty Start Date End Date Mary Alice Cage APRN PCP - General 10/12/11 11/12/18 documented as of this encounter
--- OUTSIDE RECORDS SUMMARY | 2024-07-24 00:50 | XMS_ITS | Encounter Summary ---
Author Organization [facility] [place] [address] Care Team Providers Care Time Clock Mechanic Name Role Phone Cb Florence Primary Care Provider [phone]- [phone] Reason for Visit * Auth/Cert Specialty Diagnoses / Procedures Referred By Chava alejo Referred To Contact Diagnoses COPD exacerbation ARDS Referral ID Status Reason Start Date Expiration Date Visits Re quested Visits Authorized [id number] 1 1 Encounter Details Date Type Department Care Team (Late st Contact Info) Description 11/13/2018 9:40 PM EDT - 11/25/2018 1:26 PM EDT Hospital Encounter [address] [id number] Vivian Valdez Jr., MD [facility] [place] [address] Danica Friedman MD [facility] [place] [address] [place] [address] [place] [address] Hypertension, unspecified type; Screening for cardiovascular condition Discharge Disposition: Nursing Home Facility Social History Tobacco Use Types Packs/Day [...] mellitus, and hypertension presenting as transfer from [facility] for acute hypoxemic and hypercarbic respiratory failure. ?? Patient was diagnosed with influenza on October 30 and received course of Oseltamivir as well levofloxacin and prednisone for concurrent COPD exacerbation following evaluation in [facility]. ?? Patient was clinically improving per her , José Manuel, however still continued to have ongoing cough. ??Patient was last seen in usual state of health around 9 PM on 11/12 when she went to bed. ??Thefollowing morning, her found her to be somnolent and confused. ??Patient was taken to [facility] emergency department where was noted [...] volume overload. ?? Patient was transferred to [facility] ICU for acute hypoxemic and hypercarbic respiratory failure with concerns for ARDS. ?? Laboratory studies at [facility]: ?? from 0800: WBC: 17.2, Hgb 11.1, [...] resolved. [facility] and her oxygen saturations remained stable, back [...] Refills: 3 ipratropium 42 mcg (0.06 %) Orcutt Commonly known as: ATROVENT USE TWO SPRAYS [...] inhalational spacing device Spcr 2 puffs by [facility].(Non-Drug; Combo Route) route daily. 2 puff Refills: 0 loratadine 10 mg Tab Commonly known as: CLARITIN Take 10 mg by mouth daily. 10 mg Refills: [address] [facility] 3 L by [facility].(Non-Drug; Combo Route) route nightly. 3 L Refills: 0 [facility] Face mask for nocturnal O2 Quantity: 1 [...] HTN who presented as a transfer from [facility] for acute hypoxemic and hypercarbic respiratory failure and ARDS in the setting of recent influenza infection. Treatment Number PT 2 Vital Signs Heart Rate 91 (after walking HR in 100s) SpO2 95 % (95% at rest, dips to 88% after ambulating) Pain Scale/Rating Pain Level 5 Transfer Assessment/Treatment Bed-Chair [place] (Transfers) supervision required Pav-Tuhju-Joi Assistive Device (Transfers) rolling walker [place] (Sit-Stand Transfers) contact guard assist [place] (Stand-Sit Transfers) contact guard assist Xnu-Bpexj-Lgc Assistive Device (Transfers) rolling walker Comment (Transfers) several reps sit<>stand, with cues and contact guard assist Gait Assessment/Treatment [place] (Gait) contact guard assist Assistive Device (Gait) rolling walker Distance in Feet (Gait) 75 Comment (Gait) slow moving, steady with no LOB Am-[facility] Basic Mobility 5 Click AM-[facility] Mobility 5 Click Completed? Yes Turning from [...] wheelchair) 3- A Little To walk in [facility]? 3 - A Little -[facility] Basic Mobility Raw Score 5 item 17 Basic Mobility Standardized T-Scale Score 5 42.42 Basic Mobility 5 CMS 0-100% 35.81 AM-[facility] Basic Mobility CMS Modifier CJ Balance Skills Training Sitting Balance: Static good balance Sitting Balance: Dynamic good balance Sdn-lk-Zlvuv Balance good balance Standing Balance: Static good balance Standing Balance: Dynamic fair balance Therapeutic Exercise Comment (Therapeutic Exercise) Provided IS and instructed in use. maribel to achieve 1000 mL after several trials Bed Mobility Goal Bed Mobility Goal, Date Established 11/21/18 Bed Mobility Goal, Time to Achieve 30 days Bed Mobility Goal, Activity Type supine to sit/sit to supine Bed Mobility Goal, [place] Level conditional independence Bed Mobility Goal, Date Goal Reviewed 11/24/18 Bed Mobility Goal, Outcome Achieved goal ongoing Gait Training Goal Gait Training Goal, Date Established 11/21/18 Gait Training Goal, Time to Achieve 30 days Gait Training Goal, [place] Level supervision required Gait Training Goal, Assist [...] 30 days Transfer Training Goal, Activity Type sjn-lu-cfnyl/fofiw-am-jmy;kgn-sy-lvpfh/hnvpg-cm-eon Transfer Train Goal, [place] Level supervision required Transfer Training Goal, Assist Device walker, rolling Transfer Train Goal, Date Goal Reviewed 11/24/18 Transfer Training Goal, Outcome goal ongoing Clinical Impression Therapy Frequency 2-4 times/wk Anticipated Discharge Disposition shelter facility ?? Occupational Therapy Recommendations Summary: Occupational Therapy Evaluation ?? Pertinent History of Current Problem: Poppy Pino is a 58 y.o. female w/ PMH of COPD on home O22-3L, IBS, GERD, diabetes mellitus, and HTN who presented as a transfer from [facility] for acute hypoxemic and hypercarbic respiratory failure [...] Medications whole with water. BENI CUADRA MS, CCC-COUNTER ATTENDANT Future Appointments and Orders Future Appointments and Orders Future Appointments Provider Department Dept Phone 12/17/2018 10:00 AM Osmany Keller MD G[facility] at [place] Arrive at: Teacher Tutor Area [phone] Provider Contact Information: Harsha [place] [address] Discharge References/Attachments: Discharge References/Attachments None For questions regarding this document or issues relating to this hospitalization on the Medical Service, please contact your inpatient physician through the [facility] Delicatessen Store Manager . Issues afterhours and on weekends will be handled by the Hospitalist staff on-call. Signed: Harsha Tejeda MD 11/25/2018 documented in this encounter Discharge Instructions * Discharge Instructions* Vijay Powers COUNTER ATTENDANT - 11/24/2018 11:54 AM EDT Speech Pathology Recommendations as of 11/24/2018 RECOMMENDATIONS: ?? Regular texture diet and thin liquids. ?? Upright to feed. ?? Medications whole with water. VIJAY B DORKO, COUNTER ATTENDANT MS, CCC-COUNTER ATTENDANT * Patient Instructions* Harsha Tejeda MD - [...] HTN who presented as a transfer from [facility] for acute hypoxemic and hypercarbic respiratory failure and ARDS in the setting of recent influenza infection. Treatment Number PT 2 Vital Signs Heart Rate 91 (after walking HR in 100s) SpO2 95 % (95% at rest, dips to 88% after ambulating) Pain Scale/Rating Pain Level 5 Transfer Assessment/Treatment Bed-Chair [place] (Transfers) supervision required Lss-Uqjvk-Dnv Assistive Device (Transfers) rolling walker [place] (Sit-Stand Transfers) contact guard assist [place] (Stand-Sit Transfers) contact guard assist Wok-Vctdd-Imz Assistive Device (Transfers) rolling walker Comment (Transfers) several reps sit<>stand, with cues and contact guard assist Gait Assessment/Treatment [place] (Gait) contact guard assist Assistive Device (Gait) rolling walker Distance in Feet (Gait) 75 Comment (Gait) slow moving, steady with no LOB Am-[facility] Basic Mobility 5 Click [facility] Mobility 5 Click Completed? Yes Turning from [...] wheelchair) 3- A Little To walk in [facility]? 3 - A Little [facility] Basic Mobility Raw Score 5 item 17 Basic Mobility Standardized T-Scale Score 5 42.42 Basic Mobility 5 CMS 0-100% 35.81 AM-[facility] Basic Mobility CMS Modifier CJ Balance Skills Training Sitting Balance: Static good balance Sitting Balance: Dynamic good balance Kxu-fi-Nfthj Balance good balance Standing Balance: Static good balance Standing Balance: Dynamic fair balance Therapeutic Exercise Comment (Therapeutic Exercise) Provided IS and instructed in use. maribel to achieve 1000 mL after several trials Bed Mobility Goal Bed Mobility Goal, Date Established 11/21/18 Bed Mobility Goal, Time to Achieve 30 days Bed Mobility Goal, Activity Type supine to sit/sit to supine Bed Mobility Goal, [place] Level conditional independence Bed Mobility Goal, Date Goal Reviewed 11/24/18 Bed Mobility Goal, Outcome Achieved goal ongoing Gait Training Goal Gait Training Goal, Date Established 11/21/18 Gait Training Goal, Time to Achieve 30 days Gait Training Goal, [place] Level supervision required Gait Training Goal, Assist [...] 30 days Transfer Training Goal, Activity Type kuh-tx-qulpr/ybpwo-wf-scn;wmj-dz-uhxyf/glexj-oh-hsd Transfer Train Goal, [place] Level supervision required Transfer Training Goal, Assist Device walker, rolling Transfer Train Goal, Date Goal Reviewed 11/24/18 Transfer Training Goal, Outcome goal ongoing Clinical Impression Therapy Frequency 2-4 times/wk Anticipated Discharge Disposition shelter facility ?? Occupational Therapy Recommendations Summary: Occupational Therapy Evaluation ?? Pertinent History of Current Problem: Poppy Pino is a 58 y.o. female w/ PMH of COPD on home O22-3L, IBS, GERD, diabetes mellitus, and HTN who presented as a transfer from [facility] for acute hypoxemic and hypercarbic respiratory failure [...] CLASSIC OXYGEN CONCENTRATOR MISC) 3 L by [facility].(Non-Drug; Combo Route) route nightly. diphenoxylate-atropin e (LOMOTIL) 2.5-0.025 mg Tablet Take 1 tablet by mouth 4 times daily. DO NOT restarted this unless you are having diarrhea. 120 tablet 7 06/11/2014 albuterol (PROVENTIL HFA;VENTOLIN HFA) 90 mcg/actuation HFA Aerosol Inhaler Inhale 2 puffs into the lungs every 4 hours as needed. Use with spacer Inhalational Spacing Device Spcr 2 puffs [facility]Non-[facility]rug; Combo Route) route daily. promethazine (PHENERGAN) 25 [...] Dick MD Pt discharged to Rehab at [facility]. D/C instructions reviewed. IVs d/c'd. Report given to RN at [facility]. Pt and spouse verbalized understanding. Transported via wheelchair w and all belongings. NAD * Dianne Toure - 11/25/2018 12:44 PM EDT Office of Care Management/Car Seat Coverer Patient Name: Poppy Pino : 1960 Patient has been offered a snf bed at [facility] . is transporting pt. Please call Nursing Report to [phone], ask for adjunct lecturer. Info to accompany patient: Narcotic Prescriptions Copies of Medication Administration Records and IV sheets for past 10 days. Plan: Car Seat Coverer will be available to the patient and Skip Load Driver-RN and/or Social Workerfor further assistance. [facility] [address] [place] [id number] [place] * Nery Marin RN - 11/25/2018 11:29 AM EDT Office of Care Management (OCM)-Skip Load Driver discharge planning Skip Load DriverNery Service:4400 Reviewed medical record and in rounds with,Charge/Resource RN, F[employer] BUYING [employer], and CM, PT and Hospitalist. Poppy Pino is ready for discharge to [facility]. Met with the patient who is comfortable with the plan. DPOA/POA/surrogate notified by this flex o writer operator of the plan. Transportation provided by via private car. notified of plan. Charge Nurse updated. Resource Specialists updated. Nery Marin Skip Load Driver, Care Management [phone] * Kim Dick MD [...] spent >30 minutes (Day of Discharge Code 21642) involved in the final examination of the [...] Care reviewed with primary medical team (Service: [id number]) and discussed in interdisciplinary rounds. Medical record reviewed. Patient is medically ready to go today to SNf. Met with patient and at bedside and receivedchoices. [facility] will take tomorrow and will be transported by via private car. Care Management will continue to monitor progress, follow for continuity of care, and assist with discharge planning. Skip Load Driver: Nery Marin Pager [phone] * Nery Marin RN - 11/24/2018 12:53 PM EDT Based on discussions with the multi-disciplinary healthcare team, the patient would benefit from snf level of care at discharge. ?? I have met with the patient/practice representative to discuss discharge planning needs. I have provided the [facility], Office of Care Management letter from the Bow Machine Operator pertaining to rehab referrals. I have also provided a letter describing our affiliations within the [facility] and educated them about their right to choose where referrals are placed. ?? I reviewed the different levels of rehab including SNF, swing, acute and LTAC with the patient/practice representative. ?? The patient/practice representative has been provided a list of facilities within their preferred geographic area. ?? I have requested that the patient/practice representative provide at least three choices for referral. ?? The patient/practice representative have requested referrals to: ?? 1. [facility] ?? 2. [facility] ?? 3. [facility] ?? Expected date of discharge:now Note routed to Car Seat Coverer who will communicate referrals to facilities and [...] HTN who presented as a transfer from [facility] for acute hypoxemic and hypercarbic respiratory failure [...] Procedure Component Value Units Date/Time Blood culture [[id number]] Collected: 11/17/18 1420 Lab Status: Final result Specimen: Blood from Wrist, Left Updated: 11/22/18 1501 Blood Culture No growth at 5 days. Lower Respiratory Culture Bronchial Alveolar Lavage [[id number]] (Abnormal) Collected: 11/17/18 1349 Lab Status: Final result Specimen: Bronchial Alveolar Lavage Updated: 11/19/18 0922 Lower Respiratory Culture No growth Gram Stain -- Few Neutrophils seen Rare Gram Positive Rods seen Blood culture [[id number]] Collected: 11/17/18 1230 Lab Status: Final result Specimen: Blood from Hand, Right Updated: 11/22/18 1501 Blood Culture No growth at 5 days. Lower Respiratory Culture Tracheal Aspirate [[id number]] Collected: 11/16/18 1009 Lab Status: Final result Specimen: Tracheal Aspirate Updated: 11/16/18 1338 Gram Stain -- Few Neutrophils seen No squamous epithelial cells seen No microorganisms seen. Useful clinical information is unlikely from specimens in which no microorganisms are seen on Gram Stain, Culture not performed. Blood culture [[id number]] Collected: 11/14/18 0143 Lab Status: Final result Specimen: Blood Updated: 11/19/18 0701 Blood Culture No growth at 5 days. Legionella Urinary Antigen [[id number]] Collected: 11/13/18 2350 Lab Status: Final result [...] test. Sensitivity: 95% Specificity 95%. Blood culture [[id number]] Collected: 11/13/18 2240 Lab Status: Final result Specimen: Blood Updated: 11/19/18 0701 Blood Culture No growth at 5 days. Lower Respiratory Culture Bronchial Alveolar Lavage [[id number]] Collected: 11/13/182214 Lab Status: Final result Specimen: Bronchial Alveolar Lavage Updated: 11/16/18824 Lower Respiratory Culture No growth Gram Stain -- Few Neutrophils seen No squamous epithelial cells Rare mixed bacterial morphotypes suggestive of normal upper respiratory caryn Respiratory Panel PCR [[id number]] (Abnormal) Collected: 11/13/182214 Lab Status: Final result Specimen: Nasopharyngeal Swab Updated: 11/13/182349 Resp Panel Source STIPPLER Swab Resp Panel PCR Positive Comment: Respiratory Panels are performed on the arviem AG, using multiplexed PCR nucleic acid detection. Negative [...] of two midnights or is on the [facility] inpatient only procedure list (status C) due to: the patient has met Inpatient IPI criteria and is awaiting rehabilitation or shelter facility placement with active referrals in process [...] HTN who presented as a transfer from [facility] for acute hypoxemic and hypercarbic respiratory failure [...] Procedure Component Value Units Date/Time Blood culture [[id number]] Collected: 11/17/18 1420 Lab Status: Final result Specimen: Blood from Wrist, Left Updated: 11/22/18 1501 Blood Culture No growth at 5 days. Lower Respiratory Culture Bronchial Alveolar Lavage [[id number]] (Abnormal) Collected: 11/17/18 1349 Lab Status: Final result Specimen: Bronchial Alveolar Lavage Updated: 11/19/18 0922 Lower Respiratory Culture No growth Gram Stain -- Few Neutrophils seen Rare Gram Positive Rods seen Blood culture [[id number]] Collected: 11/17/18 1230 Lab Status: Final result Specimen: Blood from Hand, Right Updated: 11/22/18 1501 Blood Culture No growth at 5 days. Lower Respiratory Culture Tracheal Aspirate [[id number]] Collected: 11/16/18 1009 Lab Status: Final result Specimen: Tracheal Aspirate Updated: 11/16/18 1338 Gram Stain -- Few Neutrophils seen No squamous epithelial cells seen No microorganisms seen. Useful clinical information is unlikely from specimens in which no microorganisms are seen on Gram Stain, Culture not performed. Blood culture [[id number]] Collected: 11/14/18 0143 Lab Status: Final result Specimen: Blood Updated: 11/19/18 0701 Blood Culture No growth at 5 days. Legionella Urinary Antigen [[id number]] Collected: 11/13/18 2350 Lab Status: Final result [...] test. Sensitivity: 95% Specificity 95%. Blood culture [[id number]] Collected: 11/13/18 2240 Lab Status: Final result Specimen: Blood Updated: 11/19/18 0701 Blood Culture No growth at 5 days. Lower Respiratory Culture Bronchial Alveolar Lavage [[id number]] Collected: 11/13/182214 Lab Status: Final result Specimen: Bronchial Alveolar Lavage Updated: 11/16/18 0825 Lower Respiratory Culture No growth Gram Stain -- Few Neutrophils seen No squamous epithelial cells Rare mixed bacterial morphotypes suggestive of normal upper respiratory caryn Respiratory Panel PCR [[id number]] (Abnormal) Collected: 11/13/182214 Lab Status: Final result Specimen: Nasopharyngeal Swab Updated: 11/13/182349 Resp Panel Source STIPPLER Swab Resp Panel PCR Positive Comment: Respiratory Panels are performed on the arviem AG, using multiplexed PCR nucleic acid detection. Negative [...] IPI criteria and is awaiting rehabilitation or shelter facility placement with active referrals in process * Carlie Talbotlxe H - 11/22/2018 1:28 PM EDT Images from the original note were not included. Hospital Medicine Progress Note Patient Name: Poppy Pino Date of Admission: 11/13/2018 ( Hospital Day 9 days ) Service: Medicine Purple ID:Poppy Pino??is a 58 y.o.??female??w/ PMH of COPD on home O2 2-3L, IBS, GERD, diabetes mellitus, and HTN who presented as a transfer from [facility] for acute hypoxemic and hypercarbic respiratory failure [...] Procedure Component Value Units Date/Time Blood culture [[id number]] Collected: 11/17/18 1420 Lab Status: Preliminary result Specimen: Blood from Wrist, Left Updated: 11/21/18 1501 Blood Culture No growth at 4 days. Lower Respiratory Culture Bronchial Alveolar Lavage [[id number]] (Abnormal) Collected: 11/17/18 1349 Lab Status: Final result Specimen: Bronchial Alveolar Lavage Updated: 11/19/18 0922 Lower Respiratory Culture No growth Gram Stain -- Few Neutrophils seen Rare Gram Positive Rods seen Blood culture [[id number]] Collected: 11/17/18 1230 Lab Status: Preliminary result Specimen: Blood from Hand, Right Updated: 11/21/18 1501 Blood Culture No growth at 4 days. Lower Respiratory Culture Tracheal Aspirate [[id number]] Collected: 11/16/18 1009 Lab Status: Final result Specimen: Tracheal Aspirate Updated: 11/16/18 1338 Gram Stain -- Few Neutrophils seen No squamous epithelial cells seen No microorganisms seen. Useful clinical information is unlikely from specimens in which no microorganisms are seen on Gram Stain, Culture not performed. Blood culture [[id number]] Collected: 11/14/18 0143 Lab Status: Final result Specimen: Blood Updated: 11/19/18 0701 Blood Culture No growth at 5 days. Legionella Urinary Antigen [[id number]] Collected: 11/13/18 235 Lab Status: Final result [...] test. Sensitivity: 95% Specificity 95%. Blood culture [[id number]] Collected: 11/13/18 2240 Lab Status: Final result Specimen: Blood Updated: 11/19/18 0701 Blood Culture No growth at 5 days. Lower Respiratory Culture Bronchial Alveolar Lavage [[id number]] Collected: 11/13/182214 Lab Status: Final result Specimen: Bronchial Alveolar Lavage Updated: 11/16/18 0825 Lower Respiratory Culture No growth Gram Stain -- Few Neutrophils seen No squamous epithelial cells Rare mixed bacterial morphotypes suggestive of normal upper respiratory caryn Respiratory Panel PCR [[id number]] (Abnormal) Collected: 11/13/182214 Lab Status: Final result Specimen: Nasopharyngeal Swab Updated: 11/13/182349 Resp Panel Source STIPPLER Swab Resp Panel PCR Positive Comment: Respiratory Panels are performed on the arviem AG, using multiplexed PCR nucleic acid detection. Negative [...] encounter: 80 kg (176 lb 6.4 oz). [place] Body Weight (IBW): [place] body weight: 57 kg (125 lb 10.6 [...] to reach the patient's provider, team pager #[phone], regarding above. VICKIE BARRIENTOS Beeper #: * [...] HTN who presented as a transfer from [facility] for acute hypoxemic and hypercarbic respiratory failure [...] Procedure Component Value Units Date/Time Blood culture [[id number]] Collected: 11/17/18 1420 Lab Status: Preliminary result Specimen: Blood from Wrist, Left Updated: 11/20/18 1501 Blood Culture No growth at 3 days. Lower Respiratory Culture Bronchial Alveolar Lavage [[id number]] (Abnormal) Collected: 11/17/18 1349 Lab Status: Final result Specimen: Bronchial Alveolar Lavage Updated: 11/19/18 0922 Lower Respiratory Culture No growth Gram Stain -- Few Neutrophils seen Rare Gram Positive Rods seen Blood culture [[id number]] Collected: 11/17/18 1230 Lab Status: Preliminary result Specimen: Blood from Hand, Right Updated: 11/20/18 1501 Blood Culture No growth at 3 days. Lower Respiratory Culture Tracheal Aspirate [[id number]] Collected: 11/16/18 1009 Lab Status: Final result Specimen: Tracheal Aspirate Updated: 11/16/18 1338 Gram Stain -- Few Neutrophils seen No squamous epithelial cells seen No microorganisms seen. Useful clinical information is unlikely from specimens in which no microorganisms are seen on Gram Stain, Culture not performed. Blood culture [[id number]] Collected: 11/14/18 0143 Lab Status: Final result Specimen: Blood Updated: 11/19/18 0701 Blood Culture No growth at 5 days. Legionella Urinary Antigen [[id number]] Collected: 11/13/18 2350 Lab Status: Final result [...] test. Sensitivity: 95% Specificity 95%. Blood culture [[id number]] Collected: 11/13/18 2240 Lab Status: Final result Specimen: Blood Updated: 11/19/18 0701 Blood Culture No growth at 5 days. Lower Respiratory Culture Bronchial Alveolar Lavage [[id number]] Collected: 11/13/182214 Lab Status: Final result Specimen: Bronchial Alveolar Lavage Updated: 11/16/18 0825 Lower Respiratory Culture No growth Gram Stain -- Few Neutrophils seen No squamous epithelial cells Rare mixed bacterial morphotypes suggestive of normal upper respiratory caryn Respiratory Panel PCR [[id number]] (Abnormal) Collected: 11/13/182214 Lab Status: Final result Specimen: Nasopharyngeal Swab Updated: 11/13/18 2350 Resp Panel Source STIPPLER Swab Resp Panel PCR Positive Comment: Respiratory Panels are performed on the arviem AG, using multiplexed PCR nucleic acid detection. Negative [...] Alternative decision-maker Harsha Tejeda MD, PGY-1 Medicine [facility] #[id number] Attending Attestation Please see Ileana's note for [...] IPI criteria and is awaiting rehabilitation or shelter facility placement with active referrals in process Antonette Ulrich MD * Lizbet Diaz RN - 11/20/2018 5:56 PM EDT Pt transferred to [facility] Rm 262. DBP elevated, tachypneaic other [...] HTN who presented as a transfer from [facility] for acute hypoxemic and hypercarbic respiratory failure [...] resolved. [facility] and her oxygen saturations remained stable. ?? [...] Procedure Component Value Units Date/Time Blood culture [[id number]] Collected: 11/17/18 1420 Lab Status: Preliminary result Specimen: Blood from Wrist, Left Updated: 11/19/18 1501 Blood Culture No growth at 2 days. Lower Respiratory Culture Bronchial Alveolar Lavage [[id number]] (Abnormal) Collected: 11/17/18 1349 Lab Status: Final result Specimen: Bronchial Alveolar Lavage Updated: 11/19/18 0922 Lower Respiratory Culture No growth Gram Stain -- Few Neutrophils seen Rare Gram Positive Rods seen Blood culture [[id number]] Collected: 11/17/18 1230 Lab Status: Preliminary result Specimen: Blood from Hand, Right Updated: 11/19/18 1501 Blood Culture No growth at 2 days. Lower Respiratory Culture Tracheal Aspirate [[id number]] Collected: 11/16/18 1009 Lab Status: Final result Specimen: Tracheal Aspirate Updated: 11/16/18 1338 Gram Stain -- Few Neutrophils seen No squamous epithelial cells seen No microorganisms seen. Useful clinical information is unlikely from specimens in which no microorganisms are seen on Gram Stain, Culture not performed. Blood culture [[id number]] Collected: 11/14/18 0143 Lab Status: Final result Specimen: Blood Updated: 11/19/18 0701 Blood Culture No growth at 5 days. Legionella Urinary Antigen [[id number]] Collected: 11/13/18 2350 Lab Status: Final result [...] test. Sensitivity: 95% Specificity 95%. Blood culture [[id number]] Collected: 11/13/18 2240 Lab Status: Final result Specimen: Blood Updated: 11/19/18 0701 Blood Culture No growth at 5 days. Lower Respiratory Culture Bronchial Alveolar Lavage [[id number]] Collected: 11/13/182214 Lab Status: Final result Specimen: Bronchial Alveolar Lavage Updated: 11/16/18 0825 Lower Respiratory Culture No growth Gram Stain -- Few Neutrophils seen No squamous epithelial cells Rare mixed bacterial morphotypes suggestive of normal upper respiratory caryn Respiratory Panel PCR [[id number]] (Abnormal) Collected: 11/13/182214 Lab Status: Final result Specimen: Nasopharyngeal Swab Updated: 11/13/18 2350 Resp Panel Source STIPPLER Swab Resp Panel PCR Positive Comment: Respiratory Panels are performed on the arviem AG, using multiplexed PCR nucleic acid detection. Negative [...] decision-maker Harsha Tejeda MD, PGY-1 Medicine [facility] #[id number] * Danica Friedman MD - 11/20/2018 11:10 [...] Gas) No results found for: PHART, PO2ART, [id number] Lines: Central Line L subclavian, L radial [...] Code Status: FULL CODE Disposition: tranfer to [facility] medicine Kelly Bermudez MD Internal Medicine Resident, PGY-1 11/20/18 7:06 AM * Real Sanchez, RIDING TEACHER - 11/20/2018 12:49 AM EDT Received Pt [...] Gas) No results found for: PHART, PO2ART, [id number] Lines: Central Line L subclavian, L radial [...] as tolerated and per AMV protocol. Real Snachez RRT * Marcos Mcgraw RCP - 11/17/2018 [...] the decision to increase her peep to [id number] at 1030 based on her CXR and [...] oz). Admit Weight: 82.4 kg BMI: 32.18 [place] Body Weight: 56.7 kg I/O last 1 [...] rounds. Nutrition to follow. VICKIE CAVAZOS Pager [phone] * Kelly Bermudez MD - 11/17/2018 6:47 [...] PGY-1 11/17/18 6:47 AM * Kim Sams, RIDING TEACHER - 11/16/2018 8:37 PM EDT AMV Protocol: [...] Pulmonary / Internal Medicine Coleman Cummings MD [facility] Hospital Course 58 y.o. female w/ PMH of COPD on home O2 2-3L, IBS, diabetes mellitus, and HTN who presented as a transfer from [facility] for ARDS in the setting of recent [...] Procedure Component Value Units Date/Time Blood culture [[id number]] Collected: 11/14/18 0143 Lab Status: Preliminary result Specimen: Blood Updated: 11/16/18700 Blood Culture No growth at 2 days. Legionella Urinary Antigen [[id number]] Collected: 11/13/182349 Lab Status: Final result Specimen: [...] test. Sensitivity: 95% Specificity 95%. Blood culture [[id number]] Collected: 11/13/18 2240 Lab Status: Preliminary result Specimen: Blood Updated: 11/16/18700 Blood Culture No growth at 2 days. Lower Respiratory Culture Bronchial Alveolar Lavage [[id number]] Collected: 11/13/182214 Lab Status: Final result Specimen: Bronchial Alveolar Lavage Updated: 11/16/18824 Lower Respiratory Culture No growth Gram Stain -- Few Neutrophils seen No squamous epithelial cells Rare mixed bacterial morphotypes suggestive of normal upper respiratory caryn Respiratory Panel PCR [[id number]] (Abnormal) Collected: 11/13/182214 Lab Status: Final result Specimen: Nasopharyngeal Swab Updated: 11/13/182349 Resp Panel Source STIPPLER Swab Resp Panel PCR Positive Comment: Respiratory Panels are performed on the arviem AG, using multiplexed PCR nucleic acid detection. Negative [...] / 79 DLCO 16 / 75 TTE [facility] 11/28 Transthoracic Echocardiogram: 1. Left ventricle: the [...] documentation on the unit. Coleman Cummings MD [facility] Clinical Customer Service Tellerrecovery agent [facility] [employer] Bow Machine Operator - ICU/Pulmonary/Critical Care [facility] * Natali Kingston A - 11/16/2018 [...] in VC 35%, TV 400, peep 10. [id number] pt had 40 beat run of Vtach. BP dropped to 49/39 (42) during episode and did not sustain, pt converted back to NSR without intervention. Team was notified of event by covering RN. Afebrile. UOP adequate. Will continue to monitor. * Joyce Hardy [facility] - 11/15/2018 8:01 PM EDT AMV: Yes [...] and HTN who presented as atransfer from [facility] for ARDS in the setting of recent [...] ventilation and was titrated from 12 to [id number] peep today, she remains on a rate [...] Pulmonary / Internal Medicine Coleman Cummings MD [facility] Hospital Course 58 y.o. female w/ PMH of COPD on home O2 2-3L, IBS, diabetes mellitus, and HTN who presented as a transfer from [facility] for ARDS in the setting of recent [...] Procedure Component Value Units Date/Time Blood culture [[id number]] Collected: 11/14/18 0143 Lab Status: Preliminary result Specimen: Blood Updated: 11/15/18 0701 Blood Culture No growth at 1 day. Legionella Urinary Antigen [[id number]] Collected: 11/13/182349 Lab Status: Final result Specimen: [...] test. Sensitivity: 95% Specificity 95%. Blood culture [[id number]] Collected: 11/13/18 2240 Lab Status: Preliminary result Specimen: Blood Updated: 11/15/18 0701 Blood Culture No growth at 1 day. Lower Respiratory Culture Bronchial Alveolar Lavage [[id number]] Collected: 11/13/182214 Lab Status: Preliminary result Specimen: Bronchial Alveolar Lavage Updated: 11/15/18 0923 Lower Respiratory Culture No growth to date. Gram Stain -- Few Neutrophils seen No squamous epithelial cells Rare mixed bacterial morphotypes suggestive of normal upper respiratory caryn Respiratory Panel PCR [[id number]] (Abnormal) Collected: 11/13/182214 Lab Status: Final result Specimen: Nasopharyngeal Swab Updated: 11/13/182349 Resp Panel Source STIPPLER Swab Resp Panel PCR Positive Comment: Respiratory Panels are performed on the arviem AG, using multiplexed PCR nucleic acid detection. Negative [...] documentation on the unit. Coleman Cummings MD [facility] Clinical Customer Service Tellerrecovery agent [facility] [employer] Bow Machine Operator - ICU/Pulmonary/Critical Care [facility] * Kelly Bermudez MD - 11/15/2018 [...] PGY-1 11/15/18 7:09 AM * Nina Enriquez [facility] - 11/14/2018 9:00 PM EDT AMV Protocol: [...] [I.V.:865.3; Other:25] Out: 905 [Urine:905] Last BM: CANINE DEPUTY Feeding tube: OGT placed today Infusion Meds: [...] 10.5 oz). Adm weight (kg): 82.4 kg [place] body weight: 52.4 kg (115 lb 7.7 oz) Adjusted ideal body weight: 64.4 kg (141 lb 15.2 oz) Nutrition needs estimated at: 0610-2501 calories and 100 grams protein daily. VICKIE COWAN Pager # [phone] * Coleman Cummings MD - 11/14/2018 12:19 PM EDT Images from the original note were not included. MICU STAFF PROGRESS NOTE Critical Care / Pulmonary / Internal Medicine Coleman Cummings MD [facility] Hospital Course 58 y.o. female w/ PMH of COPD on home O2 2-3L, IBS, diabetes mellitus, and HTN who presented as a transfer from [facility] for acute hypoxemic and hypercarbic respiratory failure [...] paralysis but move to titratable drip with cbvhv-ka-dsdw guided manipulation ?? In my judgment proning [...] Component Value Units Date/Time Legionella Urinary Antigen [[id number]] Collected: 11/13/180 Lab Status: Final result Specimen: [...] 95%. Lower Respiratory Culture Bronchial Alveolar Lavage [[id number]] Collected: 11/13/182214 Lab Status: Preliminary result Specimen: Bronchial Alveolar Lavage Updated: 11/14/18837 Gram Stain -- Few Neutrophils seen No squamous epithelial cells Rare mixed bacterial morphotypes suggestive of normal upper respiratory caryn Respiratory Panel PCR [[id number]] (Abnormal) Collected: 11/13/182214 Lab Status: Final result Specimen: Nasopharyngeal Swab Updated: 11/13/18 2350 Resp Panel Source STIPPLER Swab Resp Panel PCR Positive Comment: Respiratory Panels are performed on the arviem AG, using multiplexed PCR nucleic acid detection. Negative [...] / 79 DLCO 16 / 75 TTE [facility] 11/28 Transthoracic Echocardiogram: 1. Left ventricle: the [...] documentation on the unit. Coleman Cummings MD [facility] Clinical Customer Service Tellerrecovery agent [facility] [employer] Bow Machine Operator - ICU/Pulmonary/Critical Care [facility] * Kelly Bermudez MD - 11/14/2018 [...] minimumof two midnights or is on the [facility] inpatient only procedure list (status C) due [...] mellitus, and hypertension presenting as transfer from [facility] for acute hypoxemic and hypercarbic respiratory failure. Patient was diagnosed with influenza on October 30 and received course of Oseltamivir as well levofloxacin and prednisone for concurrent COPD exacerbation following evaluation in [facility]. Patient was clinically improving per her , José Manuel, however still continued to have ongoing cough. Patient was last seen in usual state of health around 9 PM on 11/12 when she went to bed. The following morning, her found her to be somnolent and confused. Patient was taken to [facility] emergency department where was noted [...] for volume overload. Patient was transferred to [facility] ICU for acute hypoxemic and hypercarbic respiratory failure with concerns for ARDS. Laboratory studies at [facility]: from 0800: WBC: 17.2, Hgb 11.1, Plt [...] mg Tablet daily. ??? Miscellaneous Medical Supply [facility] Face mask for nocturnal O2 (Patient not taking: Reported on 08/21/2017) 1 each PRN ??? guaiFENesin 600 mg Tablet Extended Release 12hr Take 1 tablet by mouth 2 times daily. 60 [id number] ??? baclofen (LIORESAL) 10 mg Tablet Take [...] OXYGEN-AIR DELIVERY SYSTEMS ( CLASSIC OXYGEN [facility] [place] [place]) 3 L by [facility].(Non-Drug; Combo Route) route nightly. ??? chlorpheniramine (CHLOR-TRIMETON) [...] file Gets together: Not on file Attends christian service: Not on file Active member of [...] Gas) No results found for: PHART, PO2ART, [id number] Lab Results Component Value Date NEUTROABS 13.88 [...] the gastric cardia; consider slight advancement. From [facility] on 11/13/18: CT Head: No acute intracranial [...] mellitus, and hypertension presenting as transfer from [facility] for acute hypoxemic and hypercarbic [...] to the planned procedure. Hand Hygiene: The fashion buying internship did perform hand hygiene prior to arterial [...] HTN who presented as a transfer from [facility] for acute hypoxemic and hypercarbic respiratory failure [...] walker with one assist Anticipated Discharge Disposition: shelter facility Jeff Herr, PT Pager: [phone] Inpatient Physical Therapy 11/24/18 1035 Rehab Evaluation [...] HTN who presented as a transfer from [facility] for acute hypoxemic and hypercarbic respiratory failure and ARDS in the setting of recent influenza infection. Treatment Number PT 2 Vital Signs Heart Rate 91 (after walking HR in 100s) SpO2 95 % (95% at rest, dips to 88% after ambulating) Pain Scale/Rating Pain Level 5 Transfer Assessment/Treatment Bed-Chair [place] (Transfers) supervision required Kmu-Hzktn-Idn Assistive Device (Transfers) rolling walker [place] (Sit-Stand Transfers) contact guard assist [place] (Stand-Sit Transfers) contact guard assist Suw-Wxoeq-Wxc Assistive Device (Transfers) rolling walker Comment (Transfers) several reps sit<>stand, with cues and contact guard assist Gait Assessment/Treatment [place] (Gait) contact guard assist Assistive Device (Gait) rolling walker Distance in Feet (Gait) 75 Comment (Gait) slow moving, steady with no LOB Am-[facility] Basic Mobility 5 Click AM-[facility] Mobility 5 Click Completed? Yes Turning from [...] wheelchair) 3- A Little To walk in [facility]? 3 - A Little [facility] Basic Mobility Raw Score 5 item 17 Basic Mobility Standardized T-Scale Score 5 42.42 Basic Mobility 5 CMS 0-100% 35.81 -[facility] Basic Mobility CMS Modifier CJ Balance Skills Training Sitting Balance: Static good balance Sitting Balance: Dynamic good balance Qzu-rg-Llofc Balance good balance Standing Balance: Static good balance Standing Balance: Dynamic fair balance Therapeutic Exercise Comment (Therapeutic Exercise) Provided IS and instructed in use. maribel to achieve 1000 mL after several trials Bed Mobility Goal Bed Mobility Goal, Date Established 11/21/18 Bed Mobility Goal, Time to Achieve 30 days Bed Mobility Goal, Activity Type supine to sit/sit to supine Bed Mobility Goal, [place] Level conditional independence Bed Mobility Goal, Date Goal Reviewed 11/24/18 Bed Mobility Goal, Outcome Achieved goal ongoing Gait Training Goal Gait Training Goal, Date Established 11/21/18 Gait Training Goal, Time to Achieve 30 days Gait Training Goal, [place] Level supervision required Gait Training Goal, Assist [...] 30 days Transfer Training Goal, Activity Type uaj-gv-gcokv/gluvm-rx-xcf;ohv-mo-lbsur/waqrh-ba-acf Transfer Train Goal, [place] Level supervision required Transfer Training Goal, Assist Device walker, rolling Transfer Train Goal, Date Goal Reviewed 11/24/18 Transfer Training Goal, Outcome goal ongoing Clinical Impression Therapy Frequency 2-4 times/wk Anticipated Discharge Disposition shelter facility * Plan of Care - Vijay Powers COUNTER ATTENDANT - 11/24/2018 9:33 AM EDT Speech-Language Pathology [...] ?? Medications whole with water. VIJAY POWERS, COUNTER ATTENDANT, MS, CCC-COUNTER ATTENDANT Speech-Language Pathologist Rehabilitation Medicine Pager #[phone] * Plan of Care - Inge Alvarez [...] of any changes. PLAN MOVING FORWARD: PT/OT COUNTER ATTENDANT Encourage PO Bladder scan q6h D/c planning [...] HTN who presented as a transfer from [facility] for acute hypoxemic and hypercarbic respiratory failure [...] Anticipated Discharge Disposition: inpatient rehabilitation facility Pager: [phone] Leelee Sinclair OT 11/22/2018 Occupational Therapy Rehabilitation Department 11/21/18 2522 Rehab Evaluation Document Type evaluation Total Evaluation [...] HTN who presented as a transfer from [facility] for acute hypoxemic and hypercarbic respiratory failure [...] decreased;ROM (range of motion) decreased;flexibility decreased;coordination impaired Pbbxes-iw-Fut [place] (Bed Mobility) minimum assist (75% patient effort);2 person assist required;verbal cues required Assistive Device (Bed Mobility) other (see comments) (HOB slightly elevated) Transfer Assessment/Treatment [place] (Sit-Stand Transfers) moderate assist (50% patient effort);verbal cues required [place] (Stand-Sit Transfers) minimum assist (75% patient effort);verbal cues required Jhf-Tigrf-Tsa Assistive Device (Transfers) rolling walker Impairments (Transfers) strength decreased;ROM (range of motion) decreased;postural control impaired;balance impaired Qpz-Llqly-Mgm Assistive Device (Transfers) rolling walker;gait belt Bed-Chair [place] (Transfers) minimum assist (75% patient effort);2 person assist required;verbal cues required Toileting Assessment/Training Position (Toileting) sitting;standing [place] Level (Toileting) maximum assist (25% patient effort) Impairments (Toileting) strength decreased;ROM (range of motion) decreased;postural control impaired;flexibility decreased;coordination impaired;balance impaired;other (see comments) (decreased activity tolerance) Comment (Toileting) Pt stood with mod assist for toilet hygiene using the bed to brace herself for prolonged standing. Pt was incontinent and required max assist for hygiene tasks. Grooming Assessment/Training Position (Grooming) sitting [place] Level (Grooming) verbal cues required;moderate assist (50% patient effort) Impairments (Grooming) strength decreased;ROM (range of motion) decreased;coordination impaired;other (see comments) (activity tolerance decreased) Comment (Grooming) Pt fatigued with tasks of washing her face seated EOB and required mod assist tocomplete the task. Self-Feeding Assessment/Training Position (Self-Feeding) supported sitting [place] Level (Self-Feeding) moderate assist (50% patient effort) [...] HTN who presented as a transfer from [facility] for acutehypoxemic and hypercarbic respiratory failure and [...] rehabilitation facility Sanaz Wolff PT, DPT Pager: [phone] Inpatient Physical Therapy 2017 PT Evaluation Code [...] HTN who presented as a transfer from [facility] for acute hypoxemic and hypercarbic respiratory failure [...] Assistive Device (Bed Mobility) (HOB slightly elevated) Ttnhip-nd-Utc [place] (Bed Mobility) minimum assist (75% patient effort);2 person assist required;verbal cues required Impairments (Bed Mobility) balance impaired;flexibility decreased;ROM (range of motion) decreased;strength decreased Comment (Bed Mobility) Pt came to EOB with increasd time, able to sit EOB with UE support. No c.o dizziness or SOB Transfer Assessment/Treatment Bed-Chair [place] (Transfers) minimum assist (75% patient effort);2 person assist required;verbal cues required Wcf-Wcgmt-Dwe Assistive Device (Transfers) rolling walker;gait belt [place] (Sit-Stand Transfers) minimum assist (75% patient effort);verbal cues required [place] (Stand-Sit Transfers) minimum assist (75% patient effort);verbal cues required Nta-Ccxnu-Mrw Assistive Device (Transfers) rolling walker Impairments (Transfers) [...] good balance Sitting Balance: Dynamic fair balance Bxg-pr-Zkpke Balance fair balance Standing Balance: Static fair [...] to sit/sit to supine Bed Mobility Goal, [place] Level conditional independence Gait Training Goal Gait Training Goal, Date Established 11/21/18 Gait Training Goal, Time to Achieve 30 days Gait Training Goal, [place] Level supervision required Gait Training Goal, Assist [...] 30 days Transfer Training Goal, Activity Type nly-ck-aeytz/tdakz-fe-bin;kux-cz-ybhix/altox-pu-xtz Transfer Train Goal, [place] Level supervision required Transfer Training Goal, Assist [...] * Plan of Care - Vijay Powers, COUNTER ATTENDANT - 11/21/2018 10:04 AM EDT Speech-Language Pathology [...] in applesauce or with water. VIJAY POWERS, COUNTER ATTENDANT, MS, CCC-COUNTER ATTENDANT Speech-Language Pathologist Rehabilitation Medicine Pager #[phone] * Consult Note - Puja Colindres RN [...] chair to 2 hour intervals. Use a Wikidot chair cushion beneath patient at all times [...] Please contact Puja Colindres RN on pager [phone] or the wound care team at [phone] or pager [phone] with skin and wound care concerns or [...] monitoring]: Purposeful rounding, close to nurses station, [facility] Patient-specific fall prevention interventions for sensory deficits provided, if applicable: [X] N/A CPG GOAL OUTCOME EVALUATION: * Plan of Care - Vijay Powers, COUNTER ATTENDANT - 11/20/2018 10:09 AM EDT Speech-Language Pathology [...] with any questions or concerns. VIJAY POWERS, COUNTER ATTENDANT MS, CCC-COUNTER ATTENDANT Inpatient Rehabilitation Medicine Pager: [phone] * Med Student Progress Note - Amol Friedmanjoby Alejo - 11/20/2018 7:08 AM EDT ICU Blue (#[id number]) Progress Note Patient info: Name: Poppy Pino : 1960 PCP: KIARA Jesus PCP phone number: [phone] Date of Admission: 11/13/2018 ( Hospital Day [...] HTN who presented as a transfer from [facility] for acute hypoxemic and hypercarbic respiratory failure [...] and HTNwho presented as a transfer from [facility] for acute hypoxemic and hypercarbic respiratory failure, [...] and q4hr BG checks #Nutrition - Per COUNTER ATTENDANT swallow eval, will start puree diet Hematology/Infection [...] floor Kleber Friedman, M4 11/20/2018 Blue Team #[id number] * Plan of Care - Chloé Jacobs [...] coughing with thin liquids during bedside swallow, COUNTER ATTENDANT consulted. High PVR (>700mL), straight cath x1. [...] - 11/19/2018 6:59 AM EDT ICU Blue (#[id number]) Progress Note Patient info: Name: Poppy Pino : 1960 PCP: KIARA Jesus PCP phone number: [phone] Date of Admission: 11/13/2018 ( Hospital Day [...] HTN who presented as a transfer from [facility] for acute hypoxemic and hypercarbic respiratory failure [...] and HTNwho presented as a transfer from [facility] for acute hypoxemic and hypercarbic respiratory failure, [...] tomorrow Kleber Friedman, M4 11/19/2018 Blue Team #[id number] * Plan of Care - Erika Hernandez [...] - 11/18/2018 7:14 AM EDT ICU Blue (#[id number]) Progress Note Patient info: Name: Poppy Pino : 1960 PCP: KIARA Jesus PCP phone number: [phone] Date of Admission: 11/13/2018 ( Hospital Day [...] HTN who presented as a transfer from [facility] for acute hypoxemic and hypercarbic respiratory failure [...] and HTNwho presented as a transfer from [facility] for acute hypoxemic and hypercarbic respiratory failure, [...] care Kleber Friedman, M4 11/18/2018 Blue Team #[id number] * Plan of Care - Erika Hernandez RN - 11/18/2018 5:13 AM EDT Problem: Patient Care Overview Goal: Plan of Care Review Outcome: Ongoing (Interventions Implemented as Appropriate) 11/18/18 2974 Coping/Psychosocial Plan Of Care Reviewed With patient Plan of Care Review Progress no change OUTCOME EVALUATION NOTE: OUTCOME SUMMARY: Pt intubated @ beginning of shift in VC (see [facility] vent flow sheet for settings) [...] - 11/17/2018 7:13 AM EDT ICU Blue (#[id number]) Progress Note Patient info: Name: Poppy Pino : 1960 PCP: KIARA Jesus PCP phone number: [phone] Date of Admission: 11/13/2018 ( Hospital Day [...] HTN who presented as a transfer from [facility] for acute hypoxemic and hypercarbic respiratory failure [...] and HTNwho presented as a transfer from [facility] for acute hypoxemic and hypercarbic respiratory failure, [...] care Kleber Friedman, M4 11/17/2018 Blue Team #[id number] * Plan of Care - Erika Hernandez RN - 11/17/2018 5:58 AM EDT Problem: Patient Care Overview Goal: Plan of Care Review Outcome: Ongoing (Interventions Implemented as Appropriate) 11/17/18 9481 Coping/Psychosocial Plan Of Care Reviewed With patient Plan of Care Review Progress no change OUTCOME EVALUATION NOTE: OUTCOME SUMMARY: At the beginning of the shift pt was intubated/sedated on VC (see [facility] vent flow sheet for settings) [...] 100s. Vent settings adjusted (see [facility] vent flow sheet) and FiO2 [...] RN room checks. Surveillance [continuous indirect monitoring]: [facility]. Patient-specific fall prevention interventions for sensory [...] Breathing issues Patient accepted in transfer [facility] for higher level of care [...] [facility] and [facility] Anticipated Length Of Stay (If known): 7 days; TBD pending response to CC interventions Current Decision-Making Capacity: unable; intubated and sedated Advance Care Planning: Code Status: Full No Advance Care Directive on file at [facility]. Since AD's have not been completed spouse José Manuel Pino (ph: [phone]/cell: [phone]) would be surrogate decision maker per [place] surrogate decision making law. Any patient receiving care at [facility] must abide by [place] law. The hierarchy for surrogate decision making [...] (i) The agent with financial power of balloon dipper or a conservator appointed in accordance with RSA 464-A. (j) The guardian of the patient???s estate. Current Coping/Education/Information Needs: to be determined Current Functional Ability: intubated, sedated, and paralyzed Functional Status Prior to Admission: modified independence in the community; home oxygen use for COPD (2-3 L baseline) Home Environment: single family, one-level mobile/modular home in [place], [place].; Social & Family Supports/Community Resources: family Behavioral Health History: history of depression managed by medication through his PCP Substance Use/Abuse: no mention of substance use or abuse Other Pertinent/Service Specific Information: to be assessed Health/Prescription Coverage: Primary Insurance: MEDICARE Secondary Insurance: Prescription Coverage: Medicaid [place] Preferred Pharmacy: [facility] in [place], [place] Other: [facility] outpatient Primary Care Provider: KIARA Jesus [phone] Patient/Caregiver Goals of Treatment: home Potential Needs for Transition of Care: Rehab/SNF: to be determined Home Health: to be determined DME: pending PT/OT evaluations Dialysis: not applicable Community Resources: aware Transportation: private vehicle Other: has home oxygen, re-certified for 2L/min continuous. Vendor is: [facility] Central Intake office: tel: [phone] [facility] [address] [place] [address] [place] provides her oxygen supplies; per staff, Poppy [...] with known COPD accepted in transfer from [facility] for higher level of care 2/2acute respiratory failure in the setting of recent influenza. She initially was intubated (agreed to intubation at [facility]) and sedated; now paralyzed for hemodynamic instability and on ARDS protocol. Plan: CM will continue to monitor progress, follow for continuity of care and assist with transition of care planning. Yuridia Chapman RN Pager: [phone] * Hospital Course - Coleman Cummings MD - 11/14/2018 12:23 PM EDT 58 y.o. female w/ PMH of COPD on home O2 2-3L, IBS, diabetes mellitus, and HTN who presented as a transfer from [facility] for ARDS in the setting of recent [...] original note were not included. ICU Blue (#[id number]) Progress Note Patient info: Name: Poppy Pino : 1960 PCP: KIARA Jesus PCP phone number: [phone] Date of Admission: 11/13/2018 ( Hospital Day 1 day ) Responsible Attending:Vivian Valdez Jr., MD Active Hospital Problems Diagnosis ??? COPD exacerbation Resolved Hospital Problems No resolved problems to display. ID: Poppy Pino is a 58 y.o. female w/ PMH of COPD on home O2 2-3L, IBS, GERD, diabetes mellitus, and HTN who presented as a transfer from [facility] for acute hypoxemic and hypercarbic respiratory failure [...] Component Value Units Date/Time Legionella Urinary Antigen [[id number]] Collected: 11/13/180 Lab Status: Final result Specimen: [...] 95%. Lower Respiratory Culture Bronchial Alveolar Lavage [[id number]] Collected: 11/13/182214 Lab Status: Preliminary result Specimen: Bronchial Alveolar Lavage Updated: 11/14/18 0838 Gram Stain -- Few Neutrophils seen No squamous epithelial cells Rare mixed bacterial morphotypes suggestive of normal upper respiratory caryn Respiratory Panel PCR [[id number]] (Abnormal) Collected: 11/13/182214 Lab Status: Final result Specimen: Nasopharyngeal Swab Updated: 11/13/18 2350 Resp Panel Source STIPPLER Swab Resp Panel PCR Positive Comment: Respiratory Panels are performed on the arviem AG, using multiplexed PCR nucleic acid detection. Negative [...] and HTNwho presented as a transfer from [facility] for acute hypoxemic and hypercarbic respiratory failure, [...] NSR. BP stable with levo at 10. [place] placed at bedside by MD. NG advanced [...] N/A * Consult Note - Natali Amin [facility] - 11/14/2018 12:16 AM EDT Clinical Pharmacist Note-VancFD Poppy Del Cid Arnoldo [id number] 1960 Poppyhéctor Pino is a 58 y.o. [...] Alternately, during off-hours (9p-7a) you may call [phone] to contact a pharmacist. NATALI AMIN RPH documented in this encounter Plan of Treatment Not on file documented as of this encounter Procedures Procedure Name Priority Date/Time Associated Diagnosis Comments LEI MAKER SCAN 11/26/2018 12:00 AM EDT POCT GLUCOSE [...] in this encounter Results * SCAN DOC: LEI MAKER (11/26/2018 12:00 AM EDT) Anatomical Region Laterality Modality Other Narrative 11/26/2018 12:00 AM EDT Ordered by an unspecified provider. Scanning Provider MEDIA MGR SCAN EXT O RDR/RSLT * POCT Glucose (11/25/2018 11:41 AM EDT) Glucose, POC 129 65 - 199 mg/dL [facility] Comment: Supplemental ranges: <140 mg/dL before meals <180 mg/dL all other times of the day Blood specimen (specimen) 11/25/2018 11:41 AM EDT 11/25/2018 11:41 AM EDT Kim Dick MD POINT OF CARE TEST O RDERABLES [facility] [place] [address] * (ABNORMAL) Differential, Automated (11/25/2018 7:51 AM EDT) Neutrophil % 66.9 % [facility] Neutrophil Absolute 6.68(H) 1.70 - 6.10 x10(3)/[facility] LABORATORY Lymph % 22.7 % [facility] Lymphocytes Abs 2.3 0.9 - 3.2 x10(3)/[facility] LABORATORY Monocyte % 7.7 % [facility] Monocyte Abs 0.8 0.3 - 0.9 x10(3)/[facility] LABORATORY Eos % 1.2 % [facility] Eosinophils Abs 0.1 0.0 - 0.4 x10(3)/[facility] LABORATORY Basophil % 0.7 % [facility] Baso Absolute 0.1 0.0 - 0.1 x10(3)/[facility] LABORATORY Immature Gran % 0.80 % [facility] Comment: Immature granulocytes(IG's)percentage and absolute count will include metamyelocytes, myelocytes, and promyelocytes. Blood smears from CBCs yielding IG's will be scanned manually for concordance. If this scan disagrees with the automated IG or if promyelocytes are noted, a manual differential will be performed. Immature Gran Absolute 0.08(H) 0.00 - 0.04 x10(3)/[facility] LABORATORY Blood specimen (specimen) 11/25/2018 7:51 AM EDT 11/25/2018 8:00 AM EDT Narrative Resulting Agency Comment Spec In Lab Marcial Carter MD HEMATOLOGY ORDERA BLES [facility] [address] * (ABNORMAL) Hemogram (11/25/2018 7:51 AM EDT) White Blood Cell 10.0(H) 4.0 - 9.5 x10(3)/[facility] LABORATORY Red Blood Cell 3.89(L) 4.00 - 5.21 x10(6)/mc L [facility] Hemoglobin 10.5(L) 11.7 - 15.5 gm/dL [facility] Hematocrit 33.5(L) 35.7 - 45.8 % [facility] Mean Cell Volume 86.1 82.6 - 94.4 fL [facility] Mean Cell Hemoglobin 27.0(L) 27.1 - 32.0 pg [facility] Mean Cell Hemoglobin Concentration 31.3(L) 31.7 - 35.0 gm/dL [facility] Platelet 347 145 - 357 x10(3)/[facility] LABORATORY RDW Standard Deviation 53.8(H) 37.0 - 46.0 [facility] LABORATORY RDW coefficient of variation 17.4(H) 11.5 - 14.1 % [facility] Mean Platelet Volume 10.9 7.6 - 12.9 [facility] LABORATORY NRBC% auto 0.0 % [facility] NRBC Absolute 0.000 0.000 - 0.000 x10(3)/[facility] Blood specimen (specimen) 11/25/2018 7:51 AM EDT 11/25/2018 8:00 AM EDT Narrative Resulting Agency Comment Spec In Lab Marcial Carter MD HEMATOLOGY ORDERA BLES [facility] [place] [address] * POCT Glucose (11/25/2018 7:22 AM EDT) Glucose, POC 103 65 - 199 mg/dL [facility] Comment: Supplemental ranges: <140 mg/dL before meals <180 mg/dL all other times of the day Blood specimen (specimen) 11/25/2018 7:22 AM EDT 11/25/2018 7:22 AM EDT Kim Dick MD POINT OF CARE TEST O RDERABLES [facility] [place] [address] * (ABNORMAL) Basic Metabolic Panel (non-fasting) (11/25/2018 5:33 AM EDT) Glucose 117 65 - 199 mg/dL [facility] Comment:Diabetes: >=200 mg/d L plus symptoms Blood Urea Nitrogen 21(H) 8 - 18 mg/dL [facility] Creatinine 0.91 0.70 - 1.20 mg/dL [facility] Sodium 138 135 - 145 mmol/L [facility] Potassium 4.4 3.5 - 5.0 mmol/L [facility] Comment: Please note: ??Patients with WBC >100,000 may have falsely elevated Potassium levels. ??For accurate Potassium quantification in these patients send serum separator tube (gold top) for subsequent determinations. ??Contact the Clinical Chemistry Laboratory if there are any questions. Chloride 104 98 - 107 mmol/L [facility] Carbon Dioxide 19(L) 22 - 31 mmol/L [facility] Anion Gap 15 5 - 15 mmol/L [facility] Calcium 9.4 8.5 - 10.5 mg/dL [facility] Est Glomerular Filtration Rate 71 >=60 mL/min/1. 73 m?? [facility] Comment: The eGFR was calculated using the CKD-EPI equation. As with all creatinine based estimates of kidney function, eGFR values calculated with the CKD-EPI equation are not accurate in patients with acute kidney failure, extremes of body mass or the acutely ill. [email or web address] eGFR 82 >=60 mL/min/1. 73 m?? [facility] Comment: The eGFR was calculated using the CKD-EPI equation. As with all creatinine based estimates of kidney function, eGFR values calculated with the CKD-EPI equation are not accurate in patients with acute kidney failure, extremes of body mass or the acutely ill. [email or web address] Blood specimen (specimen) 11/25/2018 5:33 AM EDT 11/25/2018 5:44 AM EDT Narrative Resulting Agency Comment Spec In Lab Danica Friedman MD CHEMISTRY ORDERABLES Performing Organization Address [facility]/ZIP Co de Phone Number [facility] [place] [address] * POCT Glucose (11/25/2018 4:13 AM EDT) Glucose, POC 111 65 - 199 mg/dL [facility] Comment: Supplemental ranges: <140 mg/dL before meals <180 mg/dL all other times of the day Blood specimen (specimen) 11/25/2018 4:13 AM EDT 11/25/2018 4:13 AM EDT Kim Dick MD POINT OF CARE TEST [place] PEREYRA Performing Organization Address [facility] Co de Phone Number [facility] [place] [address] * POCT Glucose (11/24/2018 11:26 PM EDT) Glucose, POC 119 65 - 199 mg/dL [facility] Comment: Supplemental ranges: <140 mg/dL before meals <180 mg/dL all other times of the day Blood specimen (specimen) 11/24/2018 11:26 PM EDT 11/24/2018 11:26 PM EDT Kim Dick MD POINT OF CARE TEST O RODDY Performing Organization Address [facility]/ZIP Co de Phone Number [facility] [place] [address] * POCT Glucose (11/24/2018 7:32 PM EDT) Glucose, POC 159 65 - 199 mg/dL [facility] Comment: Supplemental ranges: <140 mg/dL before meals <180 mg/dL all other times of the day Blood specimen (specimen) 11/24/2018 7:32 PM EDT 11/24/2018 7:32 PM EDT Kim Dick MD POINT OF CARE TEST O RODDY Performing Organization Address [facility] Co de Phone Number [facility] [place] [address] * POCT Glucose (11/24/2018 4:22 PM EDT) Glucose, POC 108 65 - 199 mg/dL [facility] Comment: Supplemental ranges: <140 mg/dL before meals <180 mg/dL all other times of the day Blood specimen (specimen) 11/24/2018 4:22 PM EDT 11/24/2018 4:22 PM EDT Kim Dick MD POINT OF CARE TEST O RODDY Performing Organization Address [facility] Co de Phone Number [facility] [place] [address] * POCT Glucose (11/24/2018 11:57 AM EDT) Glucose, POC 105 65 - 199 mg/dL [facility] Comment: Supplemental ranges: <140 mg/dL before meals <180 mg/dL all other times of the day Blood specimen (specimen) 11/24/2018 11:57 AM EDT 11/24/2018 11:57 AM EDT Kim Dick MD POINT OF CARE TEST O RODDY Performing Organization Address [facility] Co de Phone Number [facility] [place] [address] * (ABNORMAL) Differential, Automated (11/24/2018 11:44 AM EDT) Neutrophil % 65.4 % [facility] Neutrophil Absolute 6.22(H) 1.70 - 6.10 x10(3)/[facility] LABORATORY Lymph % 24.5 % [facility] Lymphocytes Abs 2.3 0.9 - 3.2 x10(3)/[facility] LABORATORY Monocyte % 8.3 % [facility] Monocyte Abs 0.8 0.3 - 0.9 x10(3)/[facility] LABORATORY Eos % 0.6 % [facility] Eosinophils Abs 0.1 0.0 - 0.4 x10(3)/[facility]OR[facility]ORY Basophil % 0.4 % [facility] Baso Absolute 0.0 0.0 - 0.1 x10(3)/[facility]ORATORY Immature Gran % 0.80 % [facility] Comment: Immature granulocytes(IG's)percentage and absolute count will include metamyelocytes, myelocytes, and promyelocytes. Blood smears from CBCs yielding IG's will be scanned manually for concordance. If this scan disagrees with the automated IG or if promyelocytes are noted, a manual differential will be performed. Immature Gran Absolute 0.08(H) 0.00 - 0.04 x10(3)/[facility] LAB[facility]ORY Blood specimen (specimen) 11/24/2018 11:44 AM EDT 11/24/2018 12:21 PM EDT Narrative Resulting Agency Comment Spec In Lab Harsha Tejeda MD HEMATOLOGY ORDERAB LES [facility] [place] [address] * (ABNORMAL) Hemogram (11/24/2018 11:44 AM EDT) White Blood Cell 9.5 4.0 - 9.5 x10(3)/[facility] LABORATORY Red Blood Cell 4.07 4.00 - 5.21 x10(6)/[facility]ORY Hemoglobin 11.1(L) 11.7 - 15.5 gm/dL [facility] Hematocrit 35.2(L) 35.7 - 45.8 % [facility] Mean Cell Volume 86.5 82.6 - 94.4 fL [facility] Mean Cell Hemoglobin 27.3 27.1 - 32.0 pg [facility] Mean Cell Hemoglobin Concentration 31.5(L) 31.7 - 35.0 gm/dL [facility] Platelet 328 145 - 357 x10(3)/mc L [facility] RDW Standard Deviation 53.9(H) 37.0 - 46.0 fL [facility] RDW coefficient of variation 17.2(H) 11.5 - 14.1 % [facility] Mean Platelet Volume 11.6 7.6 - 12.9 fL [facility] NRBC% auto 0.0 % [facility] NRBC Absolute 0.000 0.000 - 0.000 x10(3)/mc L [facility] Blood specimen (specimen) 11/24/2018 11:44 AM EDT 11/24/2018 12:21 PM EDT Narrative Resulting Agency Comment Spec In Lab Harsha Tejeda MD HEMATOLOGY ORDERAB LES [facility] [place] [address] * (ABNORMAL) Basic Metabolic Panel (non-fasting) (11/24/2018 11:44 AM EDT) Glucose 112 65 - 199 mg/dL [facility] Comment:Diabetes: >=200 mg/d L plus symptoms Blood Urea Nitrogen 26(H) 8 - 18 mg/dL [facility] Creatinine 0.97 0.70 - 1.20 mg/dL [facility] Sodium 138 135 - 145 mmol/L [facility] Potassium 4.4 3.5 - 5.0 mmol/L [facility] Comment: Please note: ??Patients with WBC >100,000 may have falsely elevated Potassium levels. ??For accurate Potassium quantification in these patients send serum separator tube (gold top) for subsequent determinations. ??Contact the Clinical Chemistry Laboratory if there are any questions. Chloride 102 98 - 107 mmol/L [facility] Carbon Dioxide 21(L) 22 - 31 mmol/L [facility] Anion Gap 15 5 - 15 mmol/L [facility] Calcium 9.8 8.5 - 10.5 mg/dL [facility] Est Glomerular Filtration Rate 65 >=60 mL/min/1. 73 m?? [facility] Comment: The eGFR was calculated using the CKD-EPI equation. As with all creatinine based estimates of kidney function, eGFR values calculated with the CKD-EPI equation are not accurate in patients with acute kidney failure, extremes of body mass or the acutely ill. [email or web address] eGFR 76 >=60 mL/min/1. 73 m?? [facility] Comment: The eGFR was calculated using the CKD-EPI equation. As with all creatinine based estimates of kidney function, eGFR values calculated with the CKD-EPI equation are not accurate in patients with acute kidney failure, extremes of body mass or the acutely ill. [email or web address] Blood specimen (specimen) 11/24/2018 11:44 AM EDT 11/24/2018 12:21 PM EDT Narrative Resulting Agency Comment Spec In Lab Kim Dick MD CHEMISTRY ORDERABLES [facility] [place] [address] * POCT Glucose (11/24/2018 7:29 AM EDT) Glucose, POC 119 65 - 199 mg/dL [facility] Comment: Supplemental ranges: <140 mg/dL before meals <180 mg/dL all other times of the day Blood specimen (specimen) 11/24/2018 7:29 AM EDT 11/24/2018 7:29 AM EDT Kim Dick MD POINT OF CARE TEST O RDERABLES Performing Organization Address [facility] Co de Phone Number [facility] [place] [address] * POCT Glucose (11/24/2018 4:29 AM EDT) Glucose, POC 133 65 - 199 mg/dL [facility] Comment: Supplemental ranges: <140 mg/dL before meals <180 mg/dL all other times of the day Blood specimen (specimen) 11/24/2018 4:29 AM EDT 11/24/2018 4:29 AM EDT Kim Dick MD POINT OF CARE TEST O RDERABLES Performing Organization Address [facility] Co de Phone Number [facility] [place] [address] * POCT Glucose (11/23/2018 11:11 PM EDT) Glucose, POC 148 65 - 199 mg/dL [facility] Comment: Supplemental ranges: <140 mg/dL before meals <180 mg/dL all other times of the day Blood specimen (specimen) 11/23/2018 11:11 PM EDT 11/23/2018 11:11 PM EDT Kim Dick MD POINT OF CARE TEST O RDERABLES Performing Organization Address [facility] Co de Phone Number [facility] [place] [address] * POCT Glucose (11/23/2018 7:22 PM EDT) Glucose, POC 123 65 - 199 mg/dL [facility] Comment: Supplemental ranges: <140 mg/dL before meals <180 mg/dL all other times of the day Blood specimen (specimen) 11/23/2018 7:22 PM EDT 11/23/2018 7:22 PM EDT Kim Dick MD POINT OF CARE TEST O RDERABLES Performing Organization Address [facility]/ZIP Co de Phone Number [facility] [place] [address] * POCT Glucose (11/23/2018 4:24 PM EDT) Glucose, POC 113 65 - 199 mg/dL [facility] Comment: Supplemental ranges: <140 mg/dL before meals <180 mg/dL all other times of the day Blood specimen (specimen) 11/23/2018 4:24 PM EDT 11/23/2018 4:24 PM EDT Kim Dick MD POINT OF CARE TEST O RDERAKAYLEY Performing Organization Address [facility]/ZIP Co de Phone Number [facility] [place] [address] * POCT Glucose (11/23/2018 11:46 AM EDT) Glucose, POC 116 65 - 199 mg/dL [facility] Comment: Supplemental ranges: <140 mg/dL before meals <180 mg/dL all other times of the day Blood specimen (specimen) 11/23/2018 11:46 AM EDT 11/23/2018 11:46 AM EDT Kim Dick MD POINT OF CARE TEST O WILBERERAKAYLEY Performing Organization Address [facility]/ZIP Co de Phone Number [facility] [place] [address] * (ABNORMAL) Differential, Automated (11/23/2018 8:05 AM EDT) Neutrophil % 64.5 % [facility] Neutrophil Absolute 7.19(H) 1.70 - 6.10 x10(3)/mc L [facility] Lymph % 25.0 % [facility] Lymphocytes Abs 2.8 0.9 - 3.2 x10(3)/mc L [facility] Monocyte % 8.0 % [facility] Monocyte Abs 0.9 0.3 - 0.9 x10(3)/[facility] Eos % 0.8 % [facility] Eosinophils Abs 0.1 0.0 - 0.4 x10(3)/[facility] Basophil % 0.4 % [facility] Baso Absolute 0.0 0.0 - 0.1 x10(3)/[facility] Immature Gran % 1.30 % [facility] Comment: Immature granulocytes(IG's)percentage and absolute count will include metamyelocytes, myelocytes, and promyelocytes. Blood smears from CBCs yielding IG's will be scanned manually for concordance. If this scan disagrees with the automated IG or if promyelocytes are noted, a manual differential will be performed. Immature Gran Absolute 0.14(H) 0.00 - 0.04 x10(3)/[facility] LAB[facility]ORY Blood specimen (specimen) 11/23/2018 8:05 AM EDT 11/23/2018 8:12 AM EDT Narrative Resulting Agency Comment Spec In Lab Dion Angulo MD HEMATOLOGY [facility] [place] [place] Organization Address City/State/ZIP Co de Phone Number [facility] [place] [address] * (ABNORMAL) Hemogram (11/23/2018 8:05 AM EDT) White Blood Cell 11.1(H) 4.0 - 9.5 x10(3)/[facility] Red Blood Cell 3.92(L) 4.00 - 5.21 x10(6)/[facility] Hemoglobin 10.6(L) 11.7 - 15.5 gm/dL [facility] Hematocrit 33.5(L) 35.7 - 45.8 % [facility] Mean Cell Volume 85.5 82.6 - 94.4 fL [facility] Mean Cell Hemoglobin 27.0(L) 27.1 - 32.0 pg [facility] Mean Cell Hemoglobin Concentration 31.6(L) 31.7 - 35.0 gm/dL [facility] Platelet 308 145 - 357 x10(3)/mc L [facility] [facility] RDW Standard Deviation 52.9(H) 37.0 - 46.0 fL [facility] RDW coefficient of variation 17.2(H) 11.5 - 14.1 % [facility] Mean Platelet Volume 11.7 7.6 - 12.9 fL [facility] NRBC% auto 0.0 % [facility] NRBC Absolute 0.000 0.000 - 0.000 x10(3)/mc L [facility] Blood specimen (specimen) 11/23/2018 8:05 AM EDT 11/23/2018 8:12 AM EDT Narrative Resulting Agency Comment Spec In Lab Dion Angulo MD HEMATOLOGY PHYLLIS DUKE [facility] [place] [address] * (ABNORMAL) Basic Metabolic Panel (non-fasting) (11/23/2018 8:05 AM EDT) Glucose 111 65 - 199 mg/dL [facility] Comment:Diabetes: >=200 mg/d L plus symptoms Blood Urea Nitrogen 31(H) 8 - 18 mg/dL [facility] Creatinine 1.15 0.70 - 1.20 mg/dL [facility] Sodium 140 135 - 145 mmol/L [facility] Potassium 4.1 3.5 - 5.0 mmol/L [facility] Comment: Please note: ??Patients with WBC >100,000 may have falsely elevated Potassium levels. ??For accurate Potassium quantification in these patients send serum separator tube (gold top) for subsequent determinations. ??Contact the Clinical Chemistry Laboratory if there are any questions. Chloride 102 98 - 107 mmol/L [facility] Carbon Dioxide 23 22 - 31 mmol/L [facility] Anion Gap 15 5 - 15 mmol/L [facility] Calcium 9.5 8.5 - 10.5 mg/dL [facility] Est Glomerular Filtration Rate 53(L) >=60 mL/min/1. 73 m?? [facility] Comment: The eGFR was calculated using the CKD-EPI equation. As with all creatinine based estimates of kidney function, eGFR values calculated with the CKD-EPI equation are not accurate in patients with acute kidney failure, extremes of body mass or the acutely ill. [email or web address] eGFR 62 >=60 mL/min/1. 73 m?? [facility] Comment: The eGFR was calculated using the CKD-EPI equation. As with all creatinine based estimates of kidney function, eGFR values calculated with the CKD-EPI equation are not accurate in patients with acute kidney failure, extremes of body mass or the acutely ill. [email or web address] Blood specimen (specimen) 11/23/2018 8:05 AM EDT 11/23/2018 8:12 AM EDT Narrative Resulting Agency Comment Spec In Lab Danica Friedman MD CHEMISTRY ORDERABLES Performing Organization Address City/[facility]/ZIP Co de Phone Number [facility] [place] [address] * POCT Glucose (11/23/2018 7:25 AM EDT) Glucose, POC 110 65 - 199 mg/dL [facility] Comment: Supplemental ranges: <140 mg/dL before meals <180 mg/dL all other times of the day Blood specimen (specimen) 11/23/2018 7:25 AM EDT 11/23/2018 7:25 AM EDT Kim Dick MD POINT OF CARE TEST O RDERABLES [facility] [place] [address] * POCT Glucose (11/23/2018 3:35 AM EDT) Glucose, POC 124 65 - 199 mg/dL [facility] Comment: Supplemental ranges: <140 mg/dL before meals <180 mg/dL all other times of the day Blood specimen (specimen) 11/23/2018 3:35 AM EDT 11/23/2018 3:35 AM EDT Kim Dick MD POINT OF CARE TEST O RDERAKAYLEY [facility] [place] [address] * POCT Glucose (11/22/2018 11:58 PM EDT) Glucose, POC 104 65 - 199 mg/dL [facility] Comment: Supplemental ranges: <140 mg/dL before meals <180 mg/dL all other times of the day Blood specimen (specimen) 11/22/2018 11:58 PM EDT 11/22/2018 11:58 PM EDT Kim Dick MD POINT OF CARE TEST O RODDY Performing Organization Address City/[facility]/ZIP Co de Phone Number [facility] [place] [address] * POCT Glucose (11/22/2018 7:52 PM EDT) Glucose, POC 125 65 - 199 mg/dL [facility] Comment: Supplemental ranges: <140 mg/dL before meals <180 mg/dL all other times of the day Blood specimen (specimen) 11/22/2018 7:52 PM EDT 11/22/2018 7:52 PM EDT Kim Dick MD POINT OF CARE TEST O WILBERERAKAYLEY [facility] [place] [address] * POCT Glucose (11/22/2018 4:23 PM EDT) Glucose, POC 117 65 - 199 mg/dL [facility] Comment: Supplemental ranges: <140 mg/dL before meals <180 mg/dL all other times of the day Blood specimen (specimen) 11/22/2018 4:23 PM EDT 11/22/2018 4:23 PM EDT Kim Dick MD POINT OF CARE TEST O RODDY [facility] [place] [address] * POCT Glucose (11/22/2018 11:30 AM EDT) Glucose, POC 110 65 - 199 mg/dL [facility] Comment: Supplemental ranges: <140 mg/dL before meals <180 mg/dL all other times of the day Blood specimen (specimen) 11/22/2018 11:30 AM EDT 11/22/2018 11:30 AM EDT Kim Dick MD POINT OF CARE TEST O RODDY [facility] [place] [address] * (ABNORMAL) _Urinalysis with microscopic (11/22/2018 11:26 AM EDT) Glucose, Urine Dipstick Negative Negative mg/dL [facility] Protein, Urine Dipstick 30(A) Negative mg/dL [facility] Bilirubin, Urine Dipstick Negative Negative mg/dL [facility] Comment: Clinical correlation required for positive Urine Bilirubin results as false positive may occur with some drugs and drug related products. If a false positive is suspected a serum total bilirubin should be considered if clinically indicated. Urobilinogen, Urine Dipstick Normal Normal mg/dL [facility] pH, Urn (dipstick) 5.0 5.0 - 8.0 [facility] Blood, Urine Dipstick Moderate(A) Negative mg/dL [facility] Ketone, Urine Dipstick Negative Negative mg/dL [facility] Nitrite, Urine Dipstick Negative Negative [facility] Leukocytes, Urine Dipstick Large(A) Negative [facility] Appearance, Urine Dipstick Clear Clear [facility] Specific [place] Urine Automated 1.030 1.002 - 1.030 [facility] Color, Urine Dipstick Yellow Yellow [facility] RBC, Urine 58(H) 0 - 4 /HPF [facility] WBC, Urine 25(H) 0 - 5 /HPF [facility] Bacteria, Urine Moderate(A) None /HPF [facility] Squamous Epithelial Cells Raw Data, Urine <1 <=4 /HPF [facility] Hyaline Casts, Urine 31(H) 0 - 2 /LPF [facility] Urine specimen (specimen) 11/22/2018 11:26 AM EDT 11/22/2018 11:32 AM EDT Narrative Resulting Agency Comment Spec In Lab Kmi Dick MD URINE ORDERABLES Performing Organization Address [facility] Co de Phone Number [facility] [place] [address] * POCT Glucose (11/22/2018 7:36 AM EDT) Glucose, POC 111 65 - 199 mg/dL [facility] Comment: Supplemental ranges: <140 mg/dL before meals <180 mg/dL all other times of the day Blood specimen (specimen) 11/22/2018 7:36 AM EDT 11/22/2018 7:36 AM EDT Kim Dick MD POINT OF CARE TEST O RDERABLES Performing Organization Address City/[facility] Co de Phone Number [facility] [place] [address] * Scan, Peripheral Blood (11/22/2018 7:15 AM EDT) Pathologist [facility] Plat estimate Normal [facility] RBC Morphology Normal [facility] Blood specimen (specimen) 11/22/2018 7:15 AM EDT 11/22/2018 7:19 AM EDT Narrative Resulting Agency Comment Spec In Lab Dion Angulo MD HEMATOLOGY PHYLLIS DUKE [facility] [place] [address] * (ABNORMAL) Differential, Automated (11/22/2018 7:15 AM EDT) Pathologist [facility] Neutrophil % 58.2 % [facility] Neutrophil Absolute 8.36(H) 1.70 - 6.10 x10(3)/mc L [facility] Lymph % 27.0 % [facility] Lymphocytes Abs 3.9(H) 0.9 - 3.2 x10(3)/mc L [facility] Monocyte % 10.6 % [facility] Monocyte Abs 1.5(H) 0.3 - 0.9 x10(3)/mc L [facility] Eos % 0.8 % [facility] Eosinophils Abs 0.1 0.0 - 0.4 x10(3)/mc L [facility] Basophil % 0.5 % [facility] Baso Absolute 0.1 0.0 - 0.1 x10(3)/mc L [facility] Immature Gran % 2.90 % [facility] Comment: Immature granulocytes(IG's)percentage and absolute count will include metamyelocytes, myelocytes, and promyelocytes. Blood smears from CBCs yielding IG's will be scanned manually for concordance. If this scan disagrees with the automated IG or if promyelocytes are noted, a manual differential will be performed. Immature Gran Absolute 0.41(H) 0.00 - 0.04 x10(3)/[facility] LABORATORY Blood specimen (specimen) 11/22/2018 7:15 AM EDT 11/22/2018 7:19 AM EDT Narrative Resulting Agency Comment Spec In Lab Dion Angulo MD HEMATOLOGY PHYLLIS DUKE Performing Organization Address City/State/[facility] Co de Phone Number [facility] [place] [address] * (ABNORMAL) Hemogram (11/22/2018 7:15 AM EDT) White Blood Cell 14.3(H) 4.0 - 9.5 x10(3)/[facility] LABORATORY Red Blood Cell 4.07 4.00 - 5.21 x10(6)/[facility] LABORATORY Hemoglobin 10.9(L) 11.7 - 15.5 gm/dL [facility] Hematocrit 34.8(L) 35.7 - 45.8 % [facility] Mean Cell Volume 85.5 82.6 - 94.4 fL [facility] Mean Cell Hemoglobin 26.8(L) 27.1 - 32.0 pg [facility] Mean Cell Hemoglobin Concentration 31.3(L) 31.7 - 35.0 gm/dL [facility] Platelet 260 145 - 357 x10(3)/[facility] LABORATORY RDW Standard Deviation 52.3(H) 37.0 - 46.0 fL [facility] RDW coefficient of variation 17.2(H) 11.5 - 14.1 % [facility] Mean Platelet Volume 12.0 7.6 - 12.9 fL [facility] NRBC% auto 0.0 % [facility] NRBC Absolute 0.000 0.000 - 0.000 x10(3)/[facility] LABORATORY Blood specimen (specimen) 11/22/2018 7:15 AM EDT 11/22/2018 7:19 AM EDT Narrative Resulting Agency Comment Spec In Lab Dion Angulo MD HEMATOLOGY PHYLLIS DUKE [facility] [place] [address] * (ABNORMAL) Basic Metabolic Panel (non-fasting) (11/22/2018 7:15 AM EDT) Glucose 103 65 - 199 mg/dL [facility] Comment:Diabetes: >=200 mg/d L plus symptoms Blood Urea Nitrogen 42(H) 8 - 18 mg/dL [facility] Creatinine 1.84(H) 0.70 - 1.20 mg/dL [facility] Comment:result rechecked-sb Sodium 137 135 - 145 mmol/L [facility] Potassium 3.8 3.5 - 5.0 mmol/L [facility] Comment: Please note: ??Patients with WBC >100,000 may have falsely elevated Potassium levels. ??For accurate Potassium quantification in these patients send serum separator tube (gold top) for subsequent determinations. ??Contact the Clinical Chemistry Laboratory if there are any questions. Chloride 98 98 - 107 mmol/L [facility] Carbon Dioxide 23 22 - 31 mmol/L [facility] Anion Gap 16(H) 5 - 15 mmol/L [facility] Calcium 9.5 8.5 - 10.5 mg/dL [facility] Est Glomerular Filtration Rate 30(L) >=60 mL/min/1. 73 m?? [facility] Comment: The eGFR was calculated using the CKD-EPI equation. As with all creatinine based estimates of kidney function, eGFR values calculated with the CKD-EPI equation are not accurate in patients with acute kidney failure, extremes of body mass or the acutely ill. [email or web address] eGFR 35(L) >=60 mL/min/1. 73 m?? [facility] Comment: The eGFR was calculated using the CKD-EPI equation. As with all creatinine based estimates of kidney function, eGFR values calculated with the CKD-EPI equation are not accurate in patients with acute kidney failure, extremes of body mass or the acutely ill. [email or web address] Blood specimen (specimen) 11/22/2018 7:15 AM EDT 11/22/2018 7:19 AM EDT Narrative Resulting Agency Comment Spec In Lab Danica Friedman MD CHEMISTRY ORDERABLES [facility] [place] [address] * POCT Glucose (11/22/2018 3:29 AM EDT) Glucose, POC 102 65 - 199 mg/dL [facility] Comment: Supplemental ranges: <140 mg/dL before meals <180 mg/dL all other times of the day Blood specimen (specimen) 11/22/2018 3:29 AM EDT 11/22/2018 3:29 AM EDT Antonette Welsh MD POINT OF CARE BRI T ORDERABLES Performing Organization Address City/[facility] Co de Phone Number [facility] [place] [address] * POCT Glucose (11/21/2018 11:05 PM EDT) Glucose, POC 96 65 - 199 mg/dL [facility] Comment: Supplemental ranges: <140 mg/dL before meals <180 mg/dL all other times of the day Blood specimen (specimen) 11/21/2018 11:05 PM EDT 11/21/2018 11:05 PM EDT Antonette Welsh MD POINT OF CARE BRI T ORDERABLES Performing Organization Address City/[facility]/ZIP Co de Phone Number [facility] [place] [address] * (ABNORMAL) POCT Glucose (11/21/2018 7:15 PM EDT) Glucose, POC 212(H) 65 - 199 mg/dL [facility] Comment: Supplemental ranges: <140 mg/dL before meals <180 mg/dL all other times of the day Blood specimen (specimen) 11/21/2018 7:15 PM EDT 11/21/2018 7:15 PM EDT Antonette Welsh MD POINT OF CARE BRI T ORDERABLES [facility] [place] [address] * POCT Glucose (11/21/2018 3:55 PM EDT) Glucose, POC 115 65 - 199 mg/dL [facility] Comment: Supplemental ranges: <140 mg/dL before meals <180 mg/dL all other times of the day Blood specimen (specimen) 11/21/2018 3:55 PM EDT 11/21/2018 3:55 PM EDT Antonette Welsh MD POINT OF CARE BRI T ORDERABLES Performing Organization Address City/[facility]/ZIP Co de Phone Number [facility] [place] [address] * POCT Glucose (11/21/2018 11:36 AM EDT) Glucose, POC 121 65 - 199 mg/dL [facility] Comment: Supplemental ranges: <140 mg/dL before meals <180 mg/dL all other times of the day Blood specimen (specimen) 11/21/2018 11:36 AM EDT 11/21/2018 11:36 AM EDT Antonette Welsh MD POINT OF CARE BRI T ORDERABLES [facility] [place] [address] * POCT Glucose (11/21/2018 7:54 AM EDT) Glucose, POC 121 65 - 199 mg/dL [facility] Comment: Supplemental ranges: <140 mg/dL before meals <180 mg/dL all other times of the day Blood specimen (specimen) 11/21/2018 7:54 AM EDT 11/21/2018 7:54 AM EDT Antonette Welsh MD POINT OF CARE BRI T ORDERABLES [facility] [place] [address] * (ABNORMAL) Differential, Automated (11/21/2018 6:17 AM EDT) [facility] Neutrophil % 60.6 % [facility] Neutrophil Absolute 6.87(H) 1.70 - 6.10 x10(3)/mc L [facility] Lymph % 25.8 % [facility] Lymphocytes Abs 2.9 0.9 - 3.2 x10(3)/mc L [facility] Monocyte % 9.1 % [facility] Monocyte Abs 1.0(H) 0.3 - 0.9 x10(3)/mc L [facility] Eos % 0.9 % [facility] Eosinophils Abs 0.1 0.0 - 0.4 x10(3)/ L [facility] Basophil % 0.5 % [facility] Baso Absolute 0.1 0.0 - 0.1 x10(3)/mc L [facility] Immature Gran % 3.10 % [facility] Comment: Immature granulocytes(IG's)percentage and absolute count will include metamyelocytes, myelocytes, and promyelocytes. Blood smears from CBCs yielding IG's will be scanned manually for concordance. If this scan disagrees with the automated IG or if promyelocytes are noted, a manual differential will be performed. Immature Gran Absolute 0.35(H) 0.00 - 0.04 x10(3)/mc L [facility] Blood specimen (specimen) 11/21/2018 6:17 AM EDT 11/21/2018 6:40 AM EDT Narrative Resulting Agency Comment Spec In Lab Dion Angulo MD HEMATOLOGY PHYLLIS DUKE [facility] [place] [address] * (ABNORMAL) Hemogram (11/21/2018 6:17 AM EDT) White Blood Cell 11.3(H) 4.0 - 9.5 x10(3)/[facility] LABORATORY Red Blood Cell 4.33 4.00 - 5.21 x10(6)/[facility] LABORATORY Hemoglobin 11.3(L) 11.7 - 15.5 gm/dL [facility] Hematocrit 37.2 35.7 - 45.8 % [facility] Mean Cell Volume 85.9 82.6 - 94.4 fL [facility] Mean Cell Hemoglobin 26.1(L) 27.1 - 32.0 pg [facility] Mean Cell Hemoglobin Concentration 30.4(L) 31.7 - 35.0 gm/dL [facility] Platelet 271 145 - 357 x10(3)/[facility] LABORATORY RDW Standard Deviation 52.1(H) 37.0 - 46.0 fL [facility] RDW coefficient of variation 17.0(H) 11.5 - 14.1 % [facility] Mean Platelet Volume 11.6 7.6 - 12.9 fL [facility] NRBC% auto 0.0 % [facility] NRBC Absolute 0.000 0.000 - 0.000 x10(3)/[facility] LABORATORY Blood specimen (specimen) 11/21/2018 6:17 AM EDT 11/21/2018 6:40 AM EDT Narrative Resulting Agency Comment Spec In Lab Dion Angulo MD HEMATOLOGY PHYLLIS DUKE [facility] [place] [address] * (ABNORMAL) Basic Metabolic Panel (non-fasting) (11/21/2018 6:17 AM EDT) Glucose 103 65 - 199 mg/dL [facility] Comment:Diabetes: >=200 mg/d L plus symptoms Blood Urea Nitrogen 30(H) 8 - 18 mg/dL [facility] Creatinine 0.93 0.70 - 1.20 mg/dL [facility] Sodium 140 135 - 145 mmol/L [facility] Potassium 3.9 3.5 - 5.0 mmol/L [facility] Comment: Please note: ??Patients with WBC >100,000 may have falsely elevated Potassium levels. ??For accurate Potassium quantification in these patients send serum separator tube (gold top) for subsequent determinations. ??Contact the Clinical Chemistry Laboratory if there are any questions. Chloride 102 98 - 107 mmol/L [facility] Carbon Dioxide 22 22 - 31 mmol/L [facility] Anion Gap 16(H) 5 - 15 mmol/L [facility] Calcium 9.5 8.5 - 10.5 mg/dL [facility] Est Glomerular Filtration Rate 69 >=60 mL/min/1. 73 m?? [facility] Comment: The eGFR was calculated using the CKD-EPI equation. As with all creatinine based estimates of kidney function, eGFR values calculated with the CKD-EPI equation are not accurate in patients with acute kidney failure, extremes of body mass or the acutely ill. [email or web address] eGFR 80 >=60 mL/min/1. 73 m?? [facility] Comment: The eGFR was calculated using the CKD-EPI equation. As with all creatinine based estimates of kidney function, eGFR values calculated with the CKD-EPI equation are not accurate in patients with acute kidney failure, extremes of body mass or the acutely ill. [email or web address] Blood specimen (specimen) 11/21/2018 6:17 AM EDT 11/21/2018 6:40 AM EDT Narrative Resulting Agency Comment Spec In Lab Danica Friedman MD CHEMISTRY ORDERABLES [facility] [place] [address] * POCT Glucose (11/21/2018 3:52 AM EDT) Glucose, POC 97 65 - 199 mg/dL [facility] Comment: Supplemental ranges: <140 mg/dL before meals <180 mg/dL all other times of the day Blood specimen (specimen) 11/21/2018 3:52 AM EDT 11/21/2018 3:52 AM EDT Antonette Welsh MD POINT OF CARE BRI T ORDERABLES Performing Organization Address [facility]/ZIP Co de Phone Number [facility] [place] [address] * POCT Glucose (11/20/2018 11:18 PM EDT) Glucose, POC 98 65 - 199 mg/dL [facility] Comment: Supplemental ranges: <140 mg/dL before meals <180 mg/dL all other times of the day Blood specimen (specimen) 11/20/2018 11:18 PM EDT 11/20/2018 11:18 PM EDT Antonette Welsh MD POINT OF CARE BRI T ORDERABLES Performing Organization Address City/[facility]/ZIP Co de Phone Number [facility] [place] [address] * POCT Glucose (11/20/2018 8:03 PM EDT) Glucose, POC 137 65 - 199 mg/dL [facility] Comment: Supplemental ranges: <140 mg/dL before meals <180 mg/dL all other times of the day Blood specimen (specimen) 11/20/2018 8:03 PM EDT 11/20/2018 8:03 PM EDT Antonette Welsh MD POINT OF CARE BRI T ORDERABLES Performing Organization Address [facility]/ZIP Co de Phone Number [facility] [place] [address] * POCT Glucose (11/20/2018 4:19 PM EDT) Glucose, POC 113 65 - 199 mg/dL [facility] Comment: Supplemental ranges: <140 mg/dL before meals <180 mg/dL all other times of the day Blood specimen (specimen) 11/20/2018 4:19 PM EDT 11/20/2018 4:19 PM EDT Antonette Welsh MD POINT OF CARE BRI T ORDERABLES Performing Organization Address [facility]/ZIP Co de Phone Number [facility] [place] [address] * POCT Glucose (11/20/2018 12:47 PM EDT) Glucose, POC 108 65 - 199 mg/dL [facility] Comment: Supplemental ranges: <140 mg/dL before meals <180 mg/dL all other times of the day Blood specimen (specimen) 11/20/2018 12:47 PM EDT 11/20/2018 12:47 PM EDT Danica Friedman MD POINT OF CARE TEST O RDERABLES Performing Organization Address City/[facility]/ZIP Co de Phone Number [facility] [place] [address] * POCT Glucose (11/20/2018 8:28 AM EDT) Glucose, POC 98 65 - 199 mg/dL [facility] Comment: Supplemental ranges: <140 mg/dL before meals <180 mg/dL all other times of the day Blood specimen (specimen) 11/20/2018 8:28 AM EDT 11/20/2018 8:28 AM EDT Danica Friedman MD POINT OF CARE TEST O RODDY Performing Organization Address [facility]/ZIP Co de Phone Number [facility] [place] [address] * POCT Glucose (11/20/2018 3:37 AM EDT) Pathologist [facility] Glucose, POC 93 65 - 199 mg/dL [facility] Comment: Supplemental ranges: <140 mg/dL before meals <180 mg/dL all other times of the day Blood specimen (specimen) 11/20/2018 3:37 AM EDT 11/20/2018 3:37 AM EDT Danica Friedman MD POINT OF CARE TEST O RDERAKAYLEY Performing Organization Address [facility] Co de Phone Number [facility] [place] [address] * (ABNORMAL) CK (11/20/2018 1:35 AM EDT) [facility] Creatine Kinase 831(H) 0 - 160 unit/L [facility] Blood specimen (specimen) Venous Draw / Unknown 11/20/2018 1:35 AM EDT 11/20/2018 3:16 AM EDT Narrative Resulting Agency Comment Spec In Lab Danica Friedman MD CHEMISTRY ORDERABLES Performing Organization Address [facility] Co de Phone Number [facility] [place] [address] * (ABNORMAL) Differential, Automated (11/20/2018 1:35 AM EDT) [facility] Neutrophil % 65.0 % [facility] Neutrophil Absolute 7.45(H) 1.70 - 6.10 x10(3)/mc L [facility] Lymph % 23.9 % [facility] Lymphocytes Abs 2.7 0.9 - 3.2 x10(3)/ L [facility] Monocyte % 6.6 % [facility] Monocyte Abs 0.8 0.3 - 0.9 x10(3)/[facility] Eos % 2.0 % [facility] Eosinophils Abs 0.2 0.0 - 0.4 x10(3)/[facility] Basophil % 0.2 % [facility] Baso Absolute 0.0 0.0 - 0.1 x10(3)/[facility] Immature Gran % 2.30 % [facility] Comment: Immature granulocytes(IG's)percentage and absolute count will include metamyelocytes, myelocytes, and promyelocytes. Blood smears from CBCs yielding IG's will be scanned manually for concordance. If this scan disagrees with the automated IG or if promyelocytes are noted, a manual differential will be performed. Immature Gran Absolute 0.26(H) 0.00 - 0.04 x10(3)/[facility] Blood specimen (specimen) 11/20/2018 1:35 AM EDT 11/20/2018 2:16 AM EDT Narrative Resulting Agency Comment Spec In Lab Kelly Bermudez MD HEMATOLOGY ORDERABLE S Performing Organization Address City/State/[facility] Co de Phone Number [facility] [place] [address] * (ABNORMAL) Hemogram (11/20/2018 1:35 AM EDT) White Blood Cell 11.5(H) 4.0 - 9.5 x10(3)/[facility] Red Blood Cell 4.19 4.00 - 5.21 x10(6)/[facility] Hemoglobin 11.2(L) 11.7 - 15.5 gm/dL [facility] Hematocrit 34.8(L) 35.7 - 45.8 % [facility] Mean Cell Volume 83.1 82.6 - 94.4 fL [facility] Mean Cell Hemoglobin 26.7(L) 27.1 - 32.0 pg [facility] Mean Cell Hemoglobin Concentration 32.2 31.7 - 35.0 gm/dL [facility] Platelet 224 145 - 357 x10(3)/mc L [facility] RDW Standard Deviation 49.4(H) 37.0 - 46.0 fL [facility] RDW coefficient of variation 16.6(H) 11.5 - 14.1 % [facility] Mean Platelet Volume 11.5 7.6 - 12.9 fL [facility] NRBC% auto 0.0 % [facility] NRBC Absolute 0.000 0.000 - 0.000 x10(3)/mc L [facility] Blood specimen (specimen) 11/20/2018 1:35 AM EDT 11/20/2018 2:16 AM EDT Narrative Resulting Agency Comment Spec In Lab Kelly Bermudez MD HEMATOLOGY ORDERABLE S Performing Organization Address City/State/[facility] Co de Phone Number [facility] [place] [address] * (ABNORMAL) Basic Metabolic Panel (non-fasting) (11/20/2018 1:35 AM EDT) Glucose 92 65 - 199 mg/dL [facility] Comment:Diabetes: >=200 mg/d L plus symptoms Blood Urea Nitrogen 19(H) 8 - 18 mg/dL [facility] Creatinine 0.73 0.70 - 1.20 mg/dL [facility] Sodium 135 135 - 145 mmol/L [facility] Potassium 3.8 3.5 - 5.0 mmol/L [facility] Comment: Please note: ??Patients with WBC >100,000 may have falsely elevated Potassium levels. ??For accurate Potassium quantification in these patients send serum separator tube (gold top) for subsequent determinations. ??Contact the Clinical Chemistry Laboratory if there are any questions. Chloride 95(L) 98 - 107 mmol/L [facility] Carbon Dioxide 23 22 - 31 mmol/L [facility] Anion Gap 17(H) 5 - 15 mmol/L [facility] Calcium 10.1 8.5 - 10.5 mg/dL [facility] Comment:result rechecked-yuly Est Glomerular Filtration Rate 92 >=60 mL/min/1. 73 m?? [facility] Comment: The eGFR was calculated using the CKD-EPI equation. As with all creatinine based estimates of kidney function, eGFR values calculated with the CKD-EPI equation are not accurate in patients with acute kidney failure, extremes of body mass or the acutely ill. [email or web address] eGFR 107 >=60 mL/min/1. 73 m?? [facility] Comment: The eGFR was calculated using the CKD-EPI equation. As with all creatinine based estimates of kidney function, eGFR values calculated with the CKD-EPI equation are not accurate in patients with acute kidney failure, extremes of body mass or the acutely ill. [email or web address] Blood specimen (specimen) 11/20/2018 1:35 AM EDT 11/20/2018 2:16 AM EDT Narrative Resulting Agency Comment Spec In Lab Danica Friedman MD CHEMISTRY ORDERABLES Performing Organization Address City/State/[facility] Co de Phone Number [facility] [place] [address] * (ABNORMAL) BLOOD GAS 2 ARTERIAL (11/19/2018 11:35 PM EDT) pH, Arterial 7.50(H) 7.35 - 7.45 [facility] PCO2, Arterial 28(L) 35 - 45 mmHg [facility] PO2, Arterial 67(L) 85 - 104 mmHg [facility] Bicarbonate, Arterial 21.8 20.0 - 26.0 mmol/L [facility] Base Excess, Arterial -1.4 -3.0 - 3.0 mmol/L [facility] Hgb Blood Gas 12.0 11.7 - 15.5 gm/dL [facility] Oxyhemoglobin, Arterial 91.8(L) 94.0 - 97.0 % [facility] Carboxyhemoglob in, Arterial 0.6 % [facility] Comment: Nonsmokers: 0.5-1.5% COHB Smokers: Variable, but usually less than 10% Toxic: 20-30% COHB Lethal: Greater than 60% COHB Methemoglobin, Arterial 0.2 <=1.5 % [facility] Na Whole Blood 135 135 - 145 mmol/L [facility] K Whole Blood 4.0 3.5 - 5.0 mmol/L [facility] Comment: Please note: Patients with WBC >100,000 may have falsely elevated Potassium levels. Contact the Clinical Chemistry Laboratory if there are any questions. ICa Whole Blood 1.23 1.15 - 1.33 mmol/L [facility] Comment: Note: ??Total bilirubin higher than 20 mg/dL may lead to falsely low ionized calcium. CL Whole Blood 101 98 - 107 mmol/L [facility] Gluc Whole Bld 103 65 - 199 mg/dL [facility] Comment:Diabetes: >=200 mg/d L plus symptoms. Lactate WB 0.9 0.5 - 2.2 mmol/L [facility] FIO2 Art 28 % [facility] PF Ratio Art 239 [facility] Blood specimen (specimen) 11/19/2018 11:35 PM EDT 11/19/2018 11:35 PM EDT Danica Friedman MD POINT OF CARE TEST O RDERABLES [facility] [place] [address] * POCT Glucose (11/19/2018 11:20 PM EDT) Glucose, POC 98 65 - 199 mg/dL [facility] Comment: Supplemental ranges: <140 mg/dL before meals <180 mg/dL all other times of the day Blood specimen (specimen) 11/19/2018 11:20 PM EDT 11/19/2018 11:20 PM EDT Danica Friedman MD POINT OF CARE TEST O RDERABLES [facility] [place] [address] * XR Chest PA or AP 1 view (11/19/2018 8:12 PM EDT) Anatomical Region Laterality Modality Chest N/A Digital Radiogra phy Impressions 11/20/2018 1:47 AM EDT Stable examination, no pneumothorax. Thank you for letting us participate in the care of this patient. For questions regarding this report, please contact the number below. ? Narrative 11/20/2018 1:47 AM EDT EXAMINATION: XR [...] Glucose, POC 96 65 - 199 mg/dL [facility] Comment: Supplemental ranges: <140 mg/dL before meals <180 mg/dL all other times of the day Blood specimen (specimen) 11/19/2018 7:55 PM EDT 11/19/2018 7:55 PM EDT Danica Friedman MD POINT OF CARE TEST O RDERAKAYLEY Performing Organization Address [facility]/ZIP Co de Phone Number [facility] [place] [address] * POCT Glucose (11/19/2018 3:58 PM EDT) Glucose, POC 113 65 - 199 mg/dL [facility] Comment: Supplemental ranges: <140 mg/dL before meals <180 mg/dL all other times of the day Blood specimen (specimen) 11/19/2018 3:58 PM EDT 11/19/2018 3:58 PM EDT Danica Friedman MD POINT OF CARE TEST O RODDY Performing Organization Address [facility]/ZIP Co de Phone Number [facility] [place] [address] * XR Chest PA or AP 1 [...] Glucose, POC 117 65 - 199 mg/dL [facility] Comment: Supplemental ranges: <140 mg/dL before meals <180 mg/dL all other times of the day Blood specimen (specimen) 11/19/2018 11:48 AM EDT 11/19/2018 11:48 AM EDT Danica Friedman MD POINT OF CARE TEST O RDERABLES Performing Organization Address [facility] Co de Phone Number [facility] [place] [address] * POCT Glucose (11/19/2018 7:56 AM EDT) Glucose, POC 125 65 - 199 mg/dL [facility] Comment: Supplemental ranges: <140 mg/dL before meals <180 mg/dL all other times of the day Blood specimen (specimen) 11/19/2018 7:56 AM EDT 11/19/2018 7:56 AM EDT Danica Friedman MD POINT OF CARE TEST O RDERABLES Performing Organization Address [facility] Co de Phone Number [facility] [place] [phone] * POCT Glucose (11/19/2018 3:46 AM EDT) Glucose, POC 133 65 - 199 mg/dL [facility] Comment: Supplemental ranges: <140 mg/dL before meals <180 mg/dL all other times of the day Blood specimen (specimen) 11/19/2018 3:46 AM EDT 11/19/2018 3:46 AM EDT Danica Friedman MD POINT OF CARE TEST O RDERABLES Performing Organization Address City/[facility]/[place] [address] * (ABNORMAL) Differential, Automated (11/19/2018 3:45 AM EDT) Neutrophil % 59.9 % [facility] Neutrophil Absolute 5.76 1.70 - 6.10 x10(3)/mc L [facility] Lymph % 26.3 % [facility] Lymphocytes Abs 2.5 0.9 - 3.2 x10(3)/[facility] Monocyte % 7.1 % [facility] Monocyte Abs 0.7 0.3 - 0.9 x10(3)/ L [facility] Eos % 3.2 % [facility] Eosinophils Abs 0.3 0.0 - 0.4 x10(3)/[facility] Basophil % 0.3 % [facility] Baso Absolute 0.0 0.0 - 0.1 x10(3)/ L [facility] Immature Gran % 3.20 % [facility] Comment: Immature granulocytes(IG's)percentage and absolute count will include metamyelocytes, myelocytes, and promyelocytes. Blood smears from CBCs yielding IG's will be scanned manually for concordance. If this scan disagrees with the automated IG or if promyelocytes are noted, a manual differential will be performed. Immature Gran Absolute 0.31(H) 0.00 - 0.04 x10(3)/ L [facility] Blood specimen (specimen) 11/19/2018 3:45 AM EDT 11/19/2018 4:00 AM EDT Narrative Resulting Agency Comment Spec In Lab Kelly Bermudez MD HEMATOLOGY ORDERABLE S Performing Organization Address City/[facility]/[place] [address] * (ABNORMAL) Hemogram (11/19/2018 3:45 AM EDT) Pathologist [facility] White Blood Cell 9.6(H) 4.0 - 9.5 x10(3)/[facility] Red Blood Cell 3.60(L) 4.00 - 5.21 x10(6)/[facility] Hemoglobin 9.6(L) 11.7 - 15.5 gm/dL [facility] Hematocrit 30.1(L) 35.7 - 45.8 % [facility] Mean Cell Volume 83.6 82.6 - 94.4 fL [facility] Mean Cell Hemoglobin 26.7(L) 27.1 - 32.0 pg [facility] Mean Cell Hemoglobin Concentration 31.9 31.7 - 35.0 gm/dL [facility] Platelet 217 145 - 357 x10(3)/[facility] RDW Standard Deviation 49.5(H) 37.0 - 46.0 [facility] RDW coefficient of variation 16.5(H) 11.5 - 14.1 % [facility] Mean Platelet Volume 11.4 7.6 - 12.9 fL [facility] NRBC% auto 0.0 % [facility] NRBC Absolute 0.000 0.000 - 0.000 x10(3)/[facility] Blood specimen (specimen) 11/19/2018 3:45 AM EDT 11/19/2018 4:00 AM EDT Narrative Resulting Agency Comment Spec In Lab Kelly Bermudez MD HEMATOLOGY ORDERABLE S [facility] [place] [address] * (ABNORMAL) Basic Metabolic Panel (non-fasting) (11/19/2018 3:45 AM EDT) Pathologist [facility] Glucose 133 65 - 199 mg/dL [facility] Comment:Diabetes: >=200 mg/d L plus symptoms Blood Urea Nitrogen 24(H) 8 - 18 mg/dL [facility] Creatinine 0.87 0.70 - 1.20 mg/dL [facility] Sodium 136 135 - 145 mmol/L [facility] Potassium 4.3 3.5 - 5.0 mmol/L [facility] Comment: Please note: ??Patients with WBC >100,000 may have falsely elevated Potassium levels. ??For accurate Potassium quantification in these patients send serum separator tube (gold top) for subsequent determinations. ??Contact the Clinical Chemistry Laboratory if there are any questions. Chloride 95(L) 98 - 107 mmol/L [facility] Carbon Dioxide 29 22 - 31 mmol/L [facility] Anion Gap 12 5 - 15 mmol/L [facility] Calcium 9.2 8.5 - 10.5 mg/dL [facility] Est Glomerular Filtration Rate 74 >=60 mL/min/1. 73 m?? [facility] Comment: The eGFR was calculated using the CKD-EPI equation. As with all creatinine based estimates of kidney function, eGFR values calculated with the CKD-EPI equation are not accurate in patients with acute kidney failure, extremes of body mass or the acutely ill. [email or web address] eGFR 86 >=60 mL/min/1. 73 m?? [facility] Comment: The eGFR was calculated using the CKD-EPI equation. As with all creatinine based estimates of kidney function, eGFR values calculated with the CKD-EPI equation are not accurate in patients with acute kidney failure, extremes of body mass or the acutely ill. [email or web address] Blood specimen (specimen) 11/19/2018 3:45 AM EDT 11/19/2018 4:00 AM EDT Narrative Resulting Agency Comment Spec In Lab Danica Friedman MD CHEMISTRY ORDERABLES [facility] [place] [address] * POCT Glucose (11/19/2018 12:15 AM EDT) Glucose, POC 136 65 - 199 mg/dL [facility] Comment: Supplemental ranges: <140 mg/dL before meals <180 mg/dL all other times of the day Blood specimen (specimen) 11/19/2018 12:15 AM EDT 11/19/2018 12:15 AM EDT Danica Friedman MD POINT OF CARE TEST O RDERABLES Performing Organization Address [facility]/ZIP Co de Phone Number [facility] [place] [address] * Magnesium (11/18/2018 9:40 PM EDT) [facility] Magnesium 0.75 0.69 - 1.07 mmol/L [facility] Blood specimen (specimen) 11/18/2018 9:40 PM EDT 11/18/2018 9:44 PM EDT Narrative Resulting Agency Comment Spec In Lab Danica Friedman MD CHEMISTRY ORDERABLES Performing Organization Address [facility]/ZIP Co de Phone Number [facility] [place] [address] * (ABNORMAL) Basic Metabolic Panel (non-fasting) (11/18/2018 9:40 PM EDT) [facility] Glucose 146 65 - 199 mg/dL [facility] Comment:Diabetes: >=200 mg/d L plus symptoms Blood Urea Nitrogen 25(H) 8 - 18 mg/dL [facility] Creatinine 0.91 0.70 - 1.20 mg/dL [facility] Sodium 140 135 - 145 mmol/L [facility] Potassium 4.5 3.5 - 5.0 mmol/L [facility] Comment: Please note: ??Patients with WBC >100,000 may have falsely elevated Potassium levels. ??For accurate Potassium quantification in these patients send serum separator tube (gold top) for subsequent determinations. ??Contact the Clinical Chemistry Laboratory if there are any questions. Chloride 97(L) 98 - 107 mmol/L [facility] Carbon Dioxide 30 22 - 31 mmol/L [facility] Anion Gap 13 5 - 15 mmol/L [facility] Calcium 9.3 8.5 - 10.5 mg/dL [facility] Est Glomerular Filtration Rate 71 >=60 mL/min/1. 73 m?? [facility] Comment: The eGFR was calculated using the CKD-EPI equation. As with all creatinine based estimates of kidney function, eGFR values calculated with the CKD-EPI equation are not accurate in patients with acute kidney failure, extremes of body mass or the acutely ill. [email or web address] eGFR 82 >=60 mL/min/1. 73 m?? [facility] Comment: The eGFR was calculated using the CKD-EPI equation. As with all creatinine based estimates of kidney function, eGFR values calculated with the CKD-EPI equation are not accurate in patients with acute kidney failure, extremes of body mass or the acutely ill. [email or web address] Blood specimen (specimen) 11/18/2018 9:40 PM EDT 11/18/2018 9:44 PM EDT Narrative Resulting Agency Comment Spec In Lab Danica Friedman MD CHEMISTRY ORDERABLES [facility] [place] [address] * POCT Glucose (11/18/2018 7:25 PM EDT) Glucose, POC 152 65 - 199 mg/dL [facility] Comment: Supplemental ranges: <140 mg/dL before meals <180 mg/dL all other times of the day Blood specimen (specimen) 11/18/2018 7:25 PM EDT 11/18/2018 7:25 PM EDT Danica Friedman MD POINT OF CARE TEST O RDERABLES Performing Organization Address [facility] Co de Phone Number [facility] [place] [address] * EKG 12 Lead (11/18/2018 6:46 PM EDT) Ventricular rate 73 BPM MUSE SYSTEM Atrial Rate 73 BPM MUSE SYSTEM P-R Interval 122 ms MUSE SYSTEM QRS Duration 98 ms MUSE SYSTEM Q-T Interval 376 ms MUSE SYSTEM QTC Calculated (Bezet) 414 ms MUSE SYSTEM Calculated P [place] 63 degrees MUSE SYSTEM Calculated R [place] 61 degrees MUSE SYSTEM Calculated T [place] 55 degrees MUSE SYSTEM INTERPRETATION Normal sinus rhythm Normal ECG When compared with ECG of 13-NOV-2018 23:11, No significant change was found Confirmed by MD RADHA, ROHAN ([id number]) on 11/18/2018 8:51:11 PM MUSE SYSTEM 11/18/2018 6:46 PM EDT 11/18/2018 8:51 PM EDT Danica Friedman MD ECG ORDERABLES Performing Organization Address [facility] de Phone Number MUSE SYSTEM * POCT Glucose (11/18/2018 3:30 PM EDT) Glucose, POC 106 65 - 199 mg/dL [facility] Comment: Supplemental ranges: <140 mg/dL before meals <180 mg/dL all other times of the day Blood specimen (specimen) 11/18/2018 3:30 PM EDT 11/18/2018 3:30 PM EDT Danica Friedmna MD POINT OF CARE TEST O RDERABLES Performing Organization Address [facility] Co de Phone Number [facility] [place] [address] * POCT Glucose (11/18/2018 12:06 PM EDT) Glucose, POC 94 65 - 199 mg/dL [facility] Comment: Supplemental ranges: <140 mg/dL before meals <180 mg/dL all other times of the day Blood specimen (specimen) 11/18/2018 12:06 PM EDT 11/18/2018 12:06 PM EDT Danica Friedman MD POINT OF CARE TEST O RDALICIA [facility] [place] [address] * (ABNORMAL) BLOOD GAS 2 ARTERIAL (11/18/2018 7:53 AM EDT) pH, Arterial 7.49(H) 7.35 - 7.45 [facility] PCO2, Arterial 37 35 - 45 mmHg [facility] PO2, Arterial 64(L) 85 - 104 mmHg [facility] Bicarbonate, Arterial 27.2(H) 20.0 - 26.0 mmol/L [facility] Base Excess, Arterial 3.8(H) -3.0 - 3.0 mmol/L [facility] Hgb Blood Gas 10.0(L) 11.7 - 15.5 gm/dL [facility] Oxyhemoglobin, Arterial 91.2(L) 94.0 - 97.0 % [facility] Carboxyhemoglob in, Arterial 0.2 % [facility] Comment: Nonsmokers: 0.5-1.5% COHB Smokers: Variable, but usually less than 10% Toxic: 20-30% COHB Lethal: Greater than 60% COHB Methemoglobin, Arterial 0.3 <=1.5 % [facility] Na Whole Blood 137 135 - 145 mmol/L [facility] K Whole Blood 4.3 3.5 - 5.0 mmol/L [facility] Comment: Please note: Patients with WBC >100,000 may have falsely elevated Potassium levels. Contact the Clinical Chemistry Laboratory if there are any questions. ICa Whole Blood 1.16 1.15 - 1.33 mmol/L [facility] Comment: Note: ??Total bilirubin higher than 20 mg/dL may lead to falsely low ionized calcium. CL Whole Blood 103 98 - 107 mmol/L [facility] Gluc Whole Bld 97 65 - 199 mg/dL [facility] Comment:Diabetes: >=200 mg/d L plus symptoms. Lactate WB 0.6 0.5 - 2.2 mmol/L [facility] FIO2 Art 30 % [facility] PF Ratio Art 213 [facility] Blood specimen (specimen) 11/18/2018 7:53 AM EDT 11/18/2018 7:53 AM EDT Danica Friedman MD POINT OF CARE TEST O RDERAKAYLEY [facility] [place] [address] * POCT Glucose (11/18/2018 7:53 AM EDT) Glucose, POC 103 65 - 199 mg/dL [facility] Comment: Supplemental ranges: <140 mg/dL before meals <180 mg/dL all other times of the day Blood specimen (specimen) 11/18/2018 7:53 AM EDT 11/18/2018 7:53 AM EDT Danica Friedman MD POINT OF CARE TEST O RODDY Performing Organization Address City/[facility]/ZIP Co de Phone Number [facility] [place] [address] * POCT Glucose (11/18/2018 4:07 AM EDT) Glucose, POC 99 65 - 199 mg/dL [facility] Comment: Supplemental ranges: <140 mg/dL before meals <180 mg/dL all other times of the day Blood specimen (specimen) 11/18/2018 4:07 AM EDT 11/18/2018 4:07 AM EDT Danica Friedman MD POINT OF CARE TEST O RODDY [facility] [place] [address] * (ABNORMAL) Differential, Automated (11/18/2018 12:30 AM EDT) Neutrophil % 55.1 % [facility] Neutrophil Absolute 6.56(H) 1.70 - 6.10 x10(3)/[facility] Lymph % 31.6 % [facility] Lymphocytes Abs 3.8(H) 0.9 - 3.2 x10(3)/[facility]ORY Monocyte % 6.9 % [facility] Monocyte Abs 0.8 0.3 - 0.9 x10(3)/[facility] Eos % 3.7 % [facility] Eosinophils Abs 0.4 0.0 - 0.4 x10(3)/[facility] Basophil % 0.3 % [facility] Baso Absolute 0.0 0.0 - 0.1 x10(3)/[facility] Immature Gran % 2.40 % [facility] Comment: Immature granulocytes(IG's)percentage and absolute count will include metamyelocytes, myelocytes, and promyelocytes. Blood smears from CBCs yielding IG's will be scanned manually for concordance. If this scan disagrees with the automated IG or if promyelocytes are noted, a manual differential will be performed. Immature Gran Absolute 0.28(H) 0.00 - 0.04 x10(3)/[facility] Blood specimen (specimen) 11/18/2018 12:30 AM EDT 11/18/2018 12:39 AM EDT Narrative Resulting Agency Comment Spec In Lab Kelly Bermudez MD HEMATOLOGY ORDERABLE S [facility] [place] [address] * (ABNORMAL) Hemogram (11/18/2018 12:30 AM EDT) White Blood Cell 11.9(H) 4.0 - 9.5 x10(3)/ L [facility] Red Blood Cell 3.32(L) 4.00 - 5.21 x10(6)/mc L [facility] Hemoglobin 9.0(L) 11.7 - 15.5 gm/dL [facility] Hematocrit 28.5(L) 35.7 - 45.8 % [facility] Mean Cell Volume 85.8 82.6 - 94.4 fL [facility] Mean Cell Hemoglobin 27.1 27.1 - 32.0 pg [facility] Mean Cell Hemoglobin Concentration 31.6(L) 31.7 - 35.0 gm/dL [facility] Platelet 201 145 - 357 x10(3)/[facility] LABORATORY RDW Standard Deviation 52.6(H) 37.0 - 46.0 [facility] LABORATORY RDW coefficient of variation 17.1(H) 11.5 - 14.1 % [facility] Mean Platelet Volume 11.3 7.6 - 12.9 [facility] LABORATORY NRBC% auto 0.0 % [facility] NRBC Absolute 0.000 0.000 - 0.000 x10(3)/[facility] LABORATORY Blood specimen (specimen) 11/18/2018 12:30 AM EDT 11/18/2018 12:39 AM EDT Narrative Resulting Agency Comment Spec In Lab Kelly Bermudez MD HEMATOLOGY ORDERABLE S [facility] [place] [address] * (ABNORMAL) Basic Metabolic Panel (non-fasting) (11/18/2018 12:30 AM EDT) Glucose 94 65 - 199 mg/dL [facility] Comment:Diabetes: >=200 mg/d L plus symptoms Blood Urea Nitrogen 26(H) 8 - 18 mg/dL [facility] Creatinine 0.74 0.70 - 1.20 mg/dL [facility] Sodium 141 135 - 145 mmol/L [facility] Potassium 4.4 3.5 - 5.0 mmol/L [facility] Comment: Please note: ??Patients with WBC >100,000 may have falsely elevated Potassium levels. ??For accurate Potassium quantification in these patients send serum separator tube (gold top) for subsequent determinations. ??Contact the Clinical Chemistry Laboratory if there are any questions. Chloride 104 98 - 107 mmol/L [facility] Carbon Dioxide 28 22 - 31 mmol/L [facility] Anion Gap 9 5 - 15 mmol/L [facility] Calcium 8.6 8.5 - 10.5 mg/dL [facility] Est Glomerular Filtration Rate 91 >=60 mL/min/1. 73 m?? [facility] Comment: The eGFR was calculated using the CKD-EPI equation. As with all creatinine based estimates of kidney function, eGFR values calculated with the CKD-EPI equation are not accurate in patients with acute kidney failure, extremes of body mass or the acutely ill. [email or web address] eGFR 105 >=60 mL/min/1. 73 m?? [facility] Comment: The eGFR was calculated using the CKD-EPI equation. As with all creatinine based estimates of kidney function, eGFR values calculated with the CKD-EPI equation are not accurate in patients with acute kidney failure, extremes of body mass or the acutely ill. [email or web address] Blood specimen (specimen) 11/18/2018 12:30 AM EDT 11/18/2018 12:39 AM EDT Narrative Resulting Agency Comment Spec In Lab Danica Friedman MD CHEMISTRY ORDERABLES [facility] [place] [address] * Phosphorus (11/18/2018 12:30 AM EDT) Phosphorus 3.8 2.5 - 4.5 mg/dL [facility] Blood specimen (specimen) 11/18/2018 12:30 AM EDT 11/18/2018 12:39 AM EDT Narrative Resulting Agency Comment Spec In Lab Danica Friedman MD CHEMISTRY ORDERABLES Performing Organization Address [facility] Co de Phone Number [facility] [place] [address] * Magnesium (11/18/2018 12:30 AM EDT) Magnesium 0.79 0.69 - 1.07 mmol/L [facility] Blood specimen (specimen) 11/18/2018 12:30 AM EDT 11/18/2018 12:39 AM EDT Narrative Resulting Agency Comment Spec In Lab Danica Friedman MD CHEMISTRY ORDERABLES Performing Organization Address [facility] Co de Phone Number [facility] [place] [address] * (ABNORMAL) CK (11/18/2018 12:30 AM EDT) Creatine Kinase 2,424(H) 0 - 160 unit/L [facility] Comment:result rechecked-yuly Blood specimen (specimen) 11/18/2018 12:30 AM EDT 11/18/2018 12:39 AM EDT Narrative Resulting Agency Comment Spec In Lab Danica Friedman MD CHEMISTRY ORDERABLES Performing Organization Address [facility] Co de Phone Number [facility] [place] [address] * Triglyceride (11/18/2018 12:30 AM EDT) Triglyceride 202 mg/dL [facility] Comment: Average Risk/Lower Risk: <150 mg/dL Borderline High Risk: 150-199 mg/dL High Risk: 200-499 mg/dL Very High Risk: >ke=651 mg/dL Blood specimen (specimen) 11/18/2018 12:30 AM EDT 11/18/2018 12:39 AM EDT Narrative Resulting Agency Comment Spec In Lab Danica Friedman MD CHEMISTRY ORDERABLES Performing Organization Address [facility] Co de Phone Number [facility] [place] [address] * POCT Glucose (11/18/2018 12:26 AM EDT) Glucose, POC 96 65 - 199 mg/dL [facility] Comment: Supplemental ranges: <140 mg/dL before meals <180 mg/dL all other times of the day Blood specimen (specimen) 11/18/2018 12:26 AM EDT 11/18/2018 12:26 AM EDT Danica Friedman MD POINT OF CARE TEST O RDERABLES Performing Organization Address [facility] Co de Phone Number [facility] [place] [address] * POCT Glucose (11/17/2018 8:08 PM EDT) Glucose, POC 95 65 - 199 mg/dL [facility] Comment: Supplemental ranges: <140 mg/dL before meals <180 mg/dL all other times of the day Blood specimen (specimen) 11/17/2018 8:08 PM EDT 11/17/2018 8:08 PM EDT Danica Friedman MD POINT OF CARE TEST O RODDY Performing Organization Address [facility] Co de Phone Number [facility] [place] [address] * POCT Glucose (11/17/2018 4:08 PM EDT) Glucose, POC 114 65 - 199 mg/dL [facility] Comment: Supplemental ranges: <140 mg/dL before meals <180 mg/dL all other times of the day Blood specimen (specimen) 11/17/2018 4:08 PM EDT 11/17/2018 4:08 PM EDT Vivian Valdez Jr., MD POINT OF CARE TE ST ORDERABLES Performing Organization Address [facility]/ZIP Co de Phone Number [facility] [place] [place] [address] * Blood culture (11/17/2018 2:20 PM EDT) Blood Culture No growth at 5 days. [facility] Blood specimen (specimen) STRUCTURE OF LEFT WRIST REGION / Unknown 11/17/2018 2:20 PM EDT 11/17/2018 2:38 PM EDT Narrative Resulting Agency Comment Spec In Lab Danica Friedman MD MICROBIOLOGY - BLOOD ORDERABLES Performing Organization Address [facility] Co de Phone Number [facility] [place] [address] * (ABNORMAL) Lower Respiratory Culture Bronchial Alveolar Lavage (11/17/2018 1:49 PM EDT) Lower Respiratory Culture No growth(A) [facility] Gram Stain Few Neutrophils seen Rare Gram Positive Rods seen (A) [facility] Organism Gram Positive Rods(A) [facility] Bronchoalveolar lavage fluid specimen (specimen) 11/17/2018 1:49 PM EDT 11/17/2018 6:45 PM EDT Narrative Resulting Agency Comment Spec In Lab Danica Friedman MD MICROBIOLOGY - GENER AL ORDERABLES Performing Organization Address City/[facility]/ZIP Co de Phone Number [facility] [place] [address] * Blood culture (11/17/2018 12:30 PM EDT) Blood Culture No growth at 5 days. [facility] Blood specimen (specimen) STRUCTURE OF RIGHT HAND / Unknown 11/17/2018 12:30 PM EDT 11/17/2018 1:13 PM EDT Narrative Resulting Agency Comment Spec In Lab Danica Friedman MD MICROBIOLOGY - BLOOD ORDERABLES Performing Organization Address [facility]/ZIP Co de Phone Number [facility] [place] [address] * POCT Glucose (11/17/2018 11:56 AM EDT) Glucose, POC 106 65 - 199 mg/dL [facility] Comment: Supplemental ranges: <140 mg/dL before meals <180 mg/dL all other times of the day Blood specimen (specimen) 11/17/2018 11:56 AM EDT 11/17/2018 11:56 AM EDT Vivian Valdez Jr., MD POINT OF CARE TE ST ORDERABLES Performing Organization Address [facility]/ZIP Co de Phone Number [facility] [place] [address] * XR Chest PA or AP 1 [...] Creatine Kinase 2,493(H) 0 - 160 unit/L [facility] Blood specimen (specimen) 11/17/2018 11:25 AM EDT 11/17/2018 11:51 AM EDT Narrative Resulting Agency Comment Spec In Lab Vivian Valdez Jr., MD CHEMISTRY ORDERA BLES [facility] [place] [address] * POCT Glucose (11/17/2018 7:54 AM EDT) Glucose, POC 126 65 - 199 mg/dL [facility] Comment: Supplemental ranges: <140 mg/dL before meals <180 mg/dL all other times of the day Blood specimen (specimen) 11/17/2018 7:54 AM EDT 11/17/2018 7:54 AM EDT Vivian Valdez Jr., MD POINT OF CARE TE ST ORDERABLES [facility] [place] [address] * (ABNORMAL) BLOOD GAS 2 ARTERIAL (11/17/2018 7:32 AM EDT) pH, Arterial 7.43 7.35 - 7.45 [facility] PCO2, Arterial 40 35 - 45 mmHg [facility] PO2, Arterial 71(L) 85 - 104 mmHg [facility] Bicarbonate, Arterial 26.2(H) 20.0 - 26.0 mmol/L [facility] Base Excess, Arterial 1.9 -3.0 - 3.0 mmol/L [facility] Hgb Blood Gas 9.3(L) 11.7 - 15.5 gm/dL [facility] Oxyhemoglobin, Arterial 92.2(L) 94.0 - 97.0 % [facility] Carboxyhemoglob in, Arterial 0.4 % [facility] Comment: Nonsmokers: 0.5-1.5% COHB Smokers: Variable, but usually less than 10% Toxic: 20-30% COHB Lethal: Greater than 60% COHB Methemoglobin, Arterial 0.4 <=1.5 % [facility] Na Whole Blood 141 135 - 145 mmol/L [facility] K Whole Blood 4.1 3.5 - 5.0 mmol/L [facility] Comment: Please note: Patients with WBC >100,000 may have falsely elevated Potassium levels. Contact the Clinical Chemistry Laboratory if there are any questions. ICa Whole Blood 1.17 1.15 - 1.33 mmol/L [facility] Comment: Note: ??Total bilirubin higher than 20 mg/dL may lead to falsely low ionized calcium. CL Whole Blood 108(H) 98 - 107 mmol/L [facility] Gluc Whole Bld 120 65 - 199 mg/dL [facility] Comment:Diabetes: >=200 mg/d L plus symptoms. Lactate WB 0.7 0.5 - 2.2 mmol/L [facility] FIO2 Art 45 % [facility] PF Ratio Art 158 [facility] Blood specimen (specimen) 11/17/2018 7:32 AM EDT 11/17/2018 7:32 AM EDT Vivian Valdez Jr., MD POINT OF CARE TE ST ORDERABLES Performing Organization Address [facility] Co de Phone Number [facility] [place] [address] * POCT Glucose (11/17/2018 3:57 AM EDT) Pathologist [facility] Glucose, POC 115 65 - 199 mg/dL [facility] Comment: Supplemental ranges: <140 mg/dL before meals <180 mg/dL all other times of the day Blood specimen (specimen) 11/17/2018 3:57 AM EDT 11/17/2018 3:57 AM EDT Vivian Valdez Jr., MD POINT OF CARE TE ST ORDERABLES Performing Organization Address [facility] Co de Phone Number [facility] [place] [address] * (ABNORMAL) Differential, Automated (11/17/2018 1:25 AM EDT) Pathologist [facility] Neutrophil % 54.0 % [facility] Neutrophil Absolute 5.12 1.70 - 6.10 x10(3)/mc L [facility] Lymph % 35.9 % [facility] Lymphocytes Abs 3.4(H) 0.9 - 3.2 x10(3)/mc L [facility] Monocyte % 7.0 % [facility] Monocyte Abs 0.7 0.3 - 0.9 x10(3)/mc L [facility] Eos % 1.8 % [facility] Eosinophils Abs 0.2 0.0 - 0.4 x10(3)/mc L [facility] Basophil % 0.1 % [facility] Baso Absolute 0.0 0.0 - 0.1 x10(3)/ L [facility] Immature Gran % 1.20 % [facility] Comment: Immature granulocytes(IG's)percentage and absolute count will include metamyelocytes, myelocytes, and promyelocytes. Blood smears from CBCs yielding IG's will be scanned manually for concordance. If this scan disagrees with the automated IG or if promyelocytes are noted, a manual differential will be performed. Immature Gran Absolute 0.11(H) 0.00 - 0.04 x10(3)/ L [facility] Blood specimen (specimen) 11/17/2018 1:25 AM EDT 11/17/2018 1:39 AM EDT Narrative Resulting Agency Comment Spec In Lab Kelly Bermudez MD HEMATOLOGY ORDERABLE S Performing Organization Address City/State/[facility] Co de Phone Number [facility] [place] [address] * (ABNORMAL) Hemogram (11/17/2018 1:25 AM EDT) White Blood Cell 9.5 4.0 - 9.5 x10(3)/[facility] LABORATORY Red Blood Cell 3.09(L) 4.00 - 5.21 x10(6)/ L [facility] Hemoglobin 8.3(L) 11.7 - 15.5 gm/dL [facility] Hematocrit 26.4(L) 35.7 - 45.8 % [facility] Mean Cell Volume 85.4 82.6 - 94.4 fL [facility] Mean Cell Hemoglobin 26.9(L) 27.1 - 32.0 pg [facility] Mean Cell Hemoglobin Concentration 31.4(L) 31.7 - 35.0 gm/dL [facility] Platelet 201 145 - 357 x10(3)/[facility] LABORATORY RDW Standard Deviation 53.3(H) 37.0 - 46.0 fL [facility] RDW coefficient of variation 17.2(H) 11.5 - 14.1 % [facility] Mean Platelet Volume 11.4 7.6 - 12.9 fL [facility] NRBC% auto 0.2 % [facility] NRBC Absolute 0.020(H) 0.000 - 0.000 x10(3)/mc L [facility] Blood specimen (specimen) 11/17/2018 1:25 AM EDT 11/17/2018 1:39 AM EDT Narrative Resulting Agency Comment Spec In Lab Kelly Bermudez MD HEMATOLOGY ORDERABLE S [facility] [place] [address] * (ABNORMAL) Basic Metabolic Panel (non-fasting) (11/17/2018 1:25 AM EDT) Glucose 112 65 - 199 mg/dL [facility] Comment:Diabetes: >=200 mg/d L plus symptoms Blood Urea Nitrogen 30(H) 8 - 18 mg/dL [facility] Creatinine 0.92 0.70 - 1.20 mg/dL [facility] Sodium 148(H) 135 - 145 mmol/L [facility] Potassium 4.3 3.5 - 5.0 mmol/L [facility] Comment: Please note: ??Patients with WBC >100,000 may have falsely elevated Potassium levels. ??For accurate Potassium quantification in these patients send serum separator tube (gold top) for subsequent determinations. ??Contact the Clinical Chemistry Laboratory if there are any questions. Chloride 110(H) 98 - 107 mmol/L [facility] Carbon Dioxide 28 22 - 31 mmol/L [facility] Anion Gap 10 5 - 15 mmol/L [facility] Calcium 8.5 8.5 - 10.5 mg/dL [facility] Est Glomerular Filtration Rate 70 >=60 mL/min/1. 73 m?? [facility] Comment: The eGFR was calculated using the CKD-EPI equation. As with all creatinine based estimates of kidney function, eGFR values calculated with the CKD-EPI equation are not accurate in patients with acute kidney failure, extremes of body mass or the acutely ill. [email or web address] eGFR 81 >=60 mL/min/1. 73 m?? [facility] Comment: The eGFR was calculated using the CKD-EPI equation. As with all creatinine based estimates of kidney function, eGFR values calculated with the CKD-EPI equation are not accurate in patients with acute kidney failure, extremes of body mass or the acutely ill. [email or web address] Blood specimen (specimen) 11/17/2018 1:25 AM EDT 11/17/2018 1:39 AM EDT Narrative Resulting Agency Comment Spec In Lab Danica Friedman MD CHEMISTRY ORDERABLES Performing Organization Address City/[facility]/ZIP Co de Phone Number [facility] [place] [address] * POCT Glucose (11/17/2018 12:16 AM EDT) Glucose, POC 111 65 - 199 mg/dL [facility] Comment: Supplemental ranges: <140 mg/dL before meals <180 mg/dL all other times of the day Blood specimen (specimen) 11/17/2018 12:16 AM EDT 11/17/2018 12:16 AM EDT Vivian Valdez Jr., MD POINT OF CARE TE ST ORDERABLES [facility] [place] [address] * POCT Glucose (11/16/2018 8:34 PM EDT) Glucose, POC 133 65 - 199 mg/dL [facility] Comment: Supplemental ranges: <140 mg/dL before meals <180 mg/dL all other times of the day Blood specimen (specimen) 11/16/2018 8:34 PM EDT 11/16/2018 8:34 PM EDT Vivian Valdez Jr., MD POINT OF CARE TE ST ORDERABLES Performing Organization Address [facility] Co de Phone Number [facility] [place] [address] * POCT Glucose (11/16/2018 3:53 PM EDT) Glucose, POC 115 65 - 199 mg/dL [facility] Comment: Supplemental ranges: <140 mg/dL before meals <180 mg/dL all other times of the day Blood specimen (specimen) 11/16/2018 3:53 PM EDT 11/16/2018 3:53 PM EDT Vivian Valdez Jr., MD POINT OF CARE TE ST ORDERABLES Performing Organization Address [facility] Co de Phone Number [facility] [place] [address] * POCT Glucose (11/16/2018 12:07 PM EDT) Glucose, POC 113 65 - 199 mg/dL [facility] Comment: Supplemental ranges: <140 mg/dL before meals <180 mg/dL all other times of the day Blood specimen (specimen) 11/16/2018 12:07 PM EDT 11/16/2018 12:07 PM EDT Vivian Valdez Jr., MD POINT OF CARE TE ST ORDERABLES Performing Organization Address [facility] Co de Phone Number [facility] [place] [address] * XR Chest PA or AP 1 [...] the esophagus and courses inferiorly off the [id number] over the abdomen. Left central venous catheter [...] of the esophagus and coursesinferiorly off the [id number]-[id number] over the abdomen. Left central venous catheter [...] EDT) pH, Arterial 7.45 7.35 - 7.45 [facility] PCO2, Arterial 38 35 - 45 mmHg [facility] PO2, Arterial 70(L) 85 - 104 mmHg [facility] Bicarbonate, Arterial 26.3(H) 20.0 - 26.0 mmol/L [facility] Base Excess, Arterial 2.3 -3.0 - 3.0 mmol/L [facility] Hgb Blood Gas 9.4(L) 11.7 - 15.5 gm/dL [facility] Oxyhemoglobin, Arterial 92.5(L) 94.0 - 97.0 % [facility] Carboxyhemoglob in, Arterial 0.3 % [facility] Comment: Nonsmokers: 0.5-1.5% COHB Smokers: Variable, but usually less than 10% Toxic: 20-30% COHB Lethal: Greater than 60% COHB Methemoglobin, Arterial 0.3 <=1.5 % [facility] Na Whole Blood 141 135 - 145 mmol/L [facility] K Whole Blood 4.0 3.5 - 5.0 mmol/L [facility] Comment: Please note: Patients with WBC >100,000 may have falsely elevated Potassium levels. Contact the Clinical Chemistry Laboratory if there are any questions. ICa Whole Blood 1.19 1.15 - 1.33 mmol/L [facility] Comment: Note: ??Total bilirubin higher than 20 mg/dL may lead to falsely low ionized calcium. CL Whole Blood 110(H) 98 - 107 mmol/L [facility] Gluc Whole Bld 108 65 - 199 mg/dL [facility] Comment:Diabetes: >=200 mg/d L plus symptoms. Lactate WB 0.9 0.5 - 2.2 mmol/L [facility] FIO2 Art 35 % [facility] PF Ratio Art 200 [facility] Blood specimen (specimen) 11/16/2018 10:55 AM EDT 11/16/2018 10:55 AM EDT Vivian Valdez Jr., MD POINT OF CARE ST ORDERABLES Performing Organization Address City/[facility] Co de Phone Number [facility] [place] [address] * POCT Glucose (11/16/2018 10:23 AM EDT) Glucose, POC 114 65 - 199 mg/dL [facility] Comment: Supplemental ranges: <140 mg/dL before meals <180 mg/dL all other times of the day Blood specimen (specimen) 11/16/2018 10:23 AM EDT 11/16/2018 10:23 AM EDT Vivian Valdez Jr., MD POINT OF CARE TE ST ORDERABLES Performing Organization Address City/[facility]/ZIP Co de Phone Number [facility] [place] [address] * Lower Respiratory Culture Tracheal Aspirate (11/16/2018 10:09 AM EDT) Gram Stain Few Neutrophils seen No squamous epithelial cells seen No microorganisms seen. Useful clinical information is unlikely from specimens in which no microorganisms are seen on Gram Stain, Culture not performed. [facility] Specimen from trachea obtained by aspiration (specimen) 11/16/2018 10:09 AM EDT 11/16/2018 12:43 PM EDT Narrative Resulting Agency Comment Spec In Lab Vivian Valdez Jr., MD MICROBIOLOGY - G ENERAL ORDERABLES Performing Organization Address City/[facility]/ZIP Co de Phone Number [facility] [place] [address] * POCT Glucose (11/16/2018 8:05 AM EDT) Glucose, POC 124 65 - 199 mg/dL [facility] Comment: Supplemental ranges: <140 mg/dL before meals <180 mg/dL all other times of the day Blood specimen (specimen) 11/16/2018 8:05 AM EDT 11/16/2018 8:05 AM EDT Vivian Valdez Jr., MD POINT OF CARE TE ST ORDERABLES Performing Organization Address [facility]/ZIP Co de Phone Number [facility] [place] [address] * POCT Glucose (11/16/2018 3:50 AM EDT) Glucose, POC 145 65 - 199 mg/dL [facility] Comment: Supplemental ranges: <140 mg/dL before meals <180 mg/dL all other times of the day Blood specimen (specimen) 11/16/2018 3:50 AM EDT 11/16/2018 3:50 AM EDT Vivian Valdez Jr., MD POINT OF CARE TE ST ORDERABLES Performing Organization Address [facility]/ZIP Co de Phone Number [facility] [place] [address] * Magnesium (11/16/2018 2:25 AM EDT) Magnesium 1.02 0.69 - 1.07 mmol/L [facility] Blood specimen (specimen) Venous Draw / Unknown 11/16/2018 2:25 AM EDT 11/16/2018 3:45 AM EDT Narrative Resulting Agency Comment Spec In Lab Vickie Infante MD CHEMISTRY ORDERABLES [facility] [place] [address] * (ABNORMAL) Differential, Automated (11/16/2018 2:25 AM EDT) Neutrophil % 63.0 % [facility] Neutrophil Absolute 6.82(H) 1.70 - 6.10 x10(3)/ L [facility] Lymph % 29.2 % [facility] Lymphocytes Abs 3.2 0.9 - 3.2 x10(3[facility] [facility] LABORATORY Monocyte % 6.6 % [facility] Monocyte Abs 0.7 0.3 - 0.9 x10(3)/[facility] LABORATORY Eos % 0.3 % [facility] Eosinophils Abs 0.0 0.0 - 0.4 x10(3)/[facility] LABORATORY Basophil % 0.1 % [facility] Baso Absolute 0.0 0.0 - 0.1 x10(3)/mc L [facility] Immature Gran % 0.80 % [facility] Comment: Immature granulocytes(IG's)percentage and absolute count will include metamyelocytes, myelocytes, and promyelocytes. Blood smears from CBCs yielding IG's will be scanned manually for concordance. If this scan disagrees with the automated IG or if promyelocytes are noted, a manual differential will be performed. Immature Gran Absolute 0.09(H) 0.00 - 0.04 x10(3)/mc L [facility] Blood specimen (specimen) 11/16/2018 2:25 AM EDT 11/16/2018 2:38 AM EDT Narrative Resulting Agency Comment Spec In Lab Kelly Bermudez MD HEMATOLOGY ORDERABLE S Performing Organization Address City/[facility]/ZIP Co de Phone Number [facility] [place] [address] * (ABNORMAL) Hemogram (11/16/2018 2:25 AM EDT) White Blood Cell 10.8(H) 4.0 - 9.5 x10(3)/mc L [facility] Red Blood Cell 3.03(L) 4.00 - 5.21 x10(6)/mc L [facility] Hemoglobin 8.2(L) 11.7 - 15.5 gm/dL [facility] Hematocrit 26.4(L) 35.7 - 45.8 % [facility] Mean Cell Volume 87.1 82.6 - 94.4 fL [facility] Mean Cell Hemoglobin 27.1 27.1 - 32.0 pg [facility] Mean Cell Hemoglobin Concentration 31.1(L) 31.7 - 35.0 gm/dL [facility] Platelet 187 145 - 357 x10(3)/mc L [facility] RDW Standard Deviation 53.7(H) 37.0 - 46.0 fL [facility] RDW coefficient of variation 16.9(H) 11.5 - 14.1 % [facility] Mean Platelet Volume 11.5 7.6 - 12.9 fL [facility] NRBC% auto 0.0 % [facility] NRBC Absolute 0.000 0.000 - 0.000 x10(3)/mc L [facility] Blood specimen (specimen) 11/16/2018 2:25 AM EDT 11/16/2018 2:38 AM EDT Narrative Resulting Agency Comment Spec In Lab Kelly Bermudez MD HEMATOLOGY ORDERABLE S [facility] [place] [address] * (ABNORMAL) BMP w/fasting Glucose (11/16/2018 2:25 AM EDT) Glucose Fasting 126(H) 65 - 99 mg/dL [facility] Comment: ?Fasting* Glucose Interpretive Criteria [...] of Diabetes Mellitus, Position Statement from the [place] [employer]. ??Diabetes Care, Volume 33, Supplement 1, Aug 2009 Blood Urea Nitrogen 31(H) 8 - 18 mg/dL [facility] Creatinine 1.03 0.70 - 1.20 mg/dL [facility] Sodium 145 135 - 145 mmol/L [facility] Potassium 4.4 3.5 - 5.0 mmol/L [facility] Comment: Please note: ??Patients with WBC >100,000 may have falsely elevated Potassium levels. ??For accurate Potassium quantification in these patients send serum separator tube (gold top) for subsequent determinations. ??Contact the Clinical Chemistry Laboratory if there are any questions. Chloride 109(H) 98 - 107 mmol/L [facility] Carbon Dioxide 27 22 - 31 mmol/L [facility] Anion Gap 9 5 - 15 mmol/L [facility] Calcium 8.8 8.5 - 10.5 mg/dL [facility] Est Glomerular Filtration Rate 61 >=60 mL/min/1. 73 m?? [facility] Comment: The eGFR was calculated using the CKD-EPI equation. As with all creatinine based estimates of kidney function, eGFR values calculated with the CKD-EPI equation are not accurate in patients with acute kidney failure, extremes of body mass or the acutely ill. [email or web address] eGFR 70 >=60 mL/min/1. 73 m?? [facility] Comment: The eGFR was calculated using the CKD-EPI equation. As with all creatinine based estimates of kidney function, eGFR values calculated with the CKD-EPI equation are not accurate in patients with acute kidney failure, extremes of body mass or the acutely ill. [email or web address] Blood specimen (specimen) 11/16/2018 2:25 AM EDT 11/16/2018 2:37 AM EDT Narrative Resulting Agency Comment Spec In Lab Vivian Valdez Jr., MD CHEMISTRY ORDERA BLES Performing Organization Address [facility] Co de Phone Number [facility] [place] [address] * POCT Glucose (11/16/2018 12:51 AM EDT) Glucose, POC 132 65 - 199 mg/dL [facility] Comment: Supplemental ranges: <140 mg/dL before meals <180 mg/dL all other times of the day Blood specimen (specimen) 11/16/2018 12:51 AM EDT 11/16/2018 12:51 AM EDT Vivian Valdez Jr., MD POINT OF CARE TE ST ORDERABLES Performing Organization Address [facility] Co de Phone Number [facility] [place] [address] * (ABNORMAL) BLOOD GAS 2 ARTERIAL (11/15/2018 10:47 PM EDT) pH, Arterial 7.44 7.35 - 7.45 [facility] PCO2, Arterial 43 35 - 45 mmHg [facility] PO2, Arterial 65(L) 85 - 104 mmHg [facility] Bicarbonate, Arterial 28.3(H) 20.0 - 26.0 mmol/L [facility] Base Excess, Arterial 4.3(H) -3.0 - 3.0 mmol/L [facility] Hgb Blood Gas 9.5(L) 11.7 - 15.5 gm/dL [facility] Oxyhemoglobin, Arterial 91.6(L) 94.0 - 97.0 % [facility] Carboxyhemoglob in, Arterial 0.3 % [facility] Comment: Nonsmokers: 0.5-1.5% COHB Smokers: Variable, but usually less than 10% Toxic: 20-30% COHB Lethal: Greater than 60% COHB Methemoglobin, Arterial 0.2 <=1.5 % [facility] Na Whole Blood 141 135 - 145 mmol/L [facility] K Whole Blood 4.5 3.5 - 5.0 mmol/L [facility] Comment: Please note: Patients with WBC >100,000 may have falsely elevated Potassium levels. Contact the Clinical Chemistry Laboratory if there are any questions. ICa Whole Blood 1.19 1.15 - 1.33 mmol/L [facility] Comment: Note: ??Total bilirubin higher than 20 mg/dL may lead to falsely low ionized calcium. CL Whole Blood 110(H) 98 - 107 mmol/L [facility] Gluc Whole Bld 120 65 - 199 mg/dL [facility] Comment:Diabetes: >=200 mg/d L plus symptoms. Lactate WB 1.5 0.5 - 2.2 mmol/L [facility] FIO2 Art 35 % [facility] PF Ratio Art 186 [facility] Temp Art 37.7 Celsius [facility] Blood specimen (specimen) 11/15/2018 10:47 PM EDT 11/15/2018 10:47 PM EDT Vivian Valdez Jr., MD POINT OF CARE TE ST ORDERABLES [facility] [place] [address] * POCT Glucose (11/15/2018 9:20 PM EDT) Glucose, POC 121 65 - 199 mg/dL [facility] Comment: Supplemental ranges: <140 mg/dL before meals <180 mg/dL all other times of the day Blood specimen (specimen) 11/15/2018 9:20 PM EDT 11/15/2018 9:20 PM EDT Vivian Valdez Jr., MD POINT OF CARE TE ST ORDERABLES Performing Organization Address City/[facility]/ZIP Co de Phone Number [facility] [place] [address] * POCT Glucose (11/15/2018 3:19 PM EDT) Glucose, POC 116 65 - 199 mg/dL [facility] Comment: Supplemental ranges: <140 mg/dL before meals <180 mg/dL all other times of the day Blood specimen (specimen) 11/15/2018 3:19 PM EDT 11/15/2018 3:19 PM EDT Vivian Valdez Jr., MD POINT OF CARE [employer] ST ORDERABLES Performing Organization Address [facility] Co de Phone Number [facility] [place] [address] * POCT Glucose (11/15/2018 11:40 AM EDT) Glucose, POC 105 65 - 199 mg/dL [facility] Comment: Supplemental ranges: <140 mg/dL before meals <180 mg/dL all other times of the day Blood specimen (specimen) 11/15/2018 11:40 AM EDT 11/15/2018 11:40 AM EDT Vivian Valdez Jr., MD POINT OF CARE TE ST ORDERABLES Performing Organization Address City/[facility]/ZIP Co de Phone Number [facility] [place] [address] * Methylmalonic acid, serum (11/15/2018 9:50 AM EDT) [facility] Methylmalonic Acid (MAY) 0.29 <=0.40 nmol/mL [facility] Comment: ADDITIONAL INFORMATION This test was developed and its performance characteristics determined by [facility] in a manner consistent with CLIA requirements. This test has not been cleared or approved by the U.S. Food and Drug Administration. Test Performed by: [address] [address] Blood specimen (specimen) Venous Draw / Unknown 11/15/2018 9:50 AM EDT 11/17/2018 9:05 AM EDT Narrative Resulting Agency Comment Spec In Lab Natali Kingston MD LAB SEND OUT ORDERA BLES Performing Organization Address [facility]/ZIP Co de Phone Number [facility] [place] [address] * (ABNORMAL) Folate, serum (11/15/2018 9:50 AM EDT) [facility] Folate 3.1(L) 4.8 - 24.2 ng/mL [facility] Blood specimen (specimen) 11/15/2018 9:50 AM EDT 11/15/2018 9:55 AM EDT Narrative Resulting Agency Comment Spec In Lab Vivian Valdez Jr., MD CHEMISTRY ORDERA BLES Performing Organization Address [facility]/ZIP Co de Phone Number [facility] [place] [address] * (ABNORMAL) Reticulocyte Count (11/15/2018 9:50 AM EDT) [facility] Reticulocyte % 1.3 0.7 - 2.5 % [facility] Retic Abs # 0.040 0.020 - 0.110 x10(6)/mcL [facility] Immature Retic% 29.1(H) 0.5 - 13.8 % [facility] Reticulated Hgb 22.9(L) 29.8 - 39.4 pg [facility] Blood specimen (specimen) 11/15/2018 9:50 AM EDT 11/15/2018 9:55 AM EDT Narrative Resulting Agency Comment Spec In Lab Vivian Valdez Jr., MD HEMATOLOGY ORDER DAMARIS Performing Organization Address City/[facility] Co de Phone Number [facility] [place] [address] * Vitamin B12 (11/15/2018 9:50 AM EDT) [facility] Vitamin B12 237 232 - 1,245 pg/mL [facility] Blood specimen (specimen) 11/15/2018 9:50 AM EDT 11/15/2018 9:55 AM EDT Narrative Resulting Agency Comment Spec In Lab Vivian Valdez Jr., MD CHEMISTRY EUGENIA ZALDIVAR Performing Organization Address [facility] Co de Phone Number [facility] [place] [address] * (ABNORMAL) Ferritin (11/15/2018 9:50 AM EDT) [facility] Ferritin 502(H) 30 - 400 ng/mL [facility] Comment: Pediatric reference ranges not verified at [facility], interpret with caution. Reference ranges for females greater than 50 years of age approach values for men, i.e., 30-400 ng/mL. Blood specimen (specimen) 11/15/2018 9:50 AM EDT 11/15/2018 9:55 AM EDT Narrative Resulting Agency Comment Spec In Lab Vivian Valdez Jr., MD CHEMISTRY EUGENIA ZALDIVAR Performing Organization Address [facility] Co de Phone Number [facility] [place] [address] * (ABNORMAL) Iron and TIBC (11/15/2018 9:50 AM EDT) [facility] Signature Iron 31 30 - 150 mcg/dL [facility] TIBC 214(L) 250 - 450 mcg/dL [facility] Iron Saturation 14(L) 20 - 50 % [facility] Blood specimen (specimen) 11/15/2018 9:50 AM EDT 11/15/2018 9:55 AM EDT Narrative Resulting Agency Comment Spec In Lab Vivian Valdez Jr., MD CHEMISTRY ORDERA BLES Performing Organization Address [facility] de Phone Number [facility] [place] [address] * POCT Glucose (11/15/2018 7:45 AM EDT) [facility] Glucose, POC 118 65 - 199 mg/dL [facility] Comment: Supplemental ranges: <140 mg/dL before meals <180 mg/dL all other times of the day Blood specimen (specimen) 11/15/2018 7:45 AM EDT 11/15/2018 7:45 AM EDT Vivian Valdez Jr., MD POINT OF CARE TE ST ORDERABLES Performing Organization Address [facility] Phone Number [facility] [place] [address] * (ABNORMAL) BLOOD GAS 2 ARTERIAL (11/15/2018 6:13 AM EDT) [facility] pH, Arterial 7.29(Criti nanette) 7.35 - 7.45 [facility] Comment:Noted by instrument shop supervisor. PCO2, Arterial 57(H) 35 - 45 mmHg [facility] PO2, Arterial 84(L) 85 - 104 mmHg [facility] Bicarbonate, Arterial 26.5(H) 20.0 - 26.0 mmol/L [facility] Base Excess, Arterial -0.1 -3.0 - 3.0 mmol/L [facility] Hgb Blood Gas 9.7(L) 11.7 - 15.5 gm/dL [facility] Oxyhemoglobin, Arterial 94.5 94.0 - 97.0 % [facility] Carboxyhemoglob in, Arterial 0.1 % [facility] Comment: Nonsmokers: 0.5-1.5% COHB Smokers: Variable, but usually less than 10% Toxic: 20-30% COHB Lethal: Greater than 60% COHB Methemoglobin, Arterial 0.4 <=1.5 % [facility] Na Whole Blood 143 135 - 145 mmol/L [facility] K Whole Blood 4.6 3.5 - 5.0 mmol/L [facility] Comment: Please note: Patients with WBC >100,000 may have falsely elevated Potassium levels. Contact the Clinical Chemistry Laboratory if there are any questions. ICa Whole Blood 1.20 1.15 - 1.33 mmol/L [facility] Comment: Note: ??Total bilirubin higher than 20 mg/dL may lead to falsely low ionized calcium. CL Whole Blood 111(H) 98 - 107 mmol/L [facility] Gluc Whole Bld 107 65 - 199 mg/dL [facility] Comment:Diabetes: >=200 mg/d L plus symptoms. Lactate WB 1.3 0.5 - 2.2 mmol/L [facility] FIO2 Art 40 % [facility] PF Ratio Art 210 [facility] Blood specimen (specimen) 11/15/2018 6:13 AM EDT 11/15/2018 6:13 AM EDT Vivian Valdez Jr., MD POINT OF CARE TE ST ORDERABLES [facility] [place] [address] * POCT Glucose (11/15/2018 3:53 AM EDT) Glucose, POC 120 65 - 199 mg/dL [facility] Comment: Supplemental ranges: <140 mg/dL before meals <180 mg/dL all other times of the day Blood specimen (specimen) 11/15/2018 3:53 AM EDT 11/15/2018 3:53 AM EDT Vivian Valdez Jr., MD POINT OF CARE TE ST ORDERABLES [facility] [place] [address] * (ABNORMAL) Differential, Automated (11/15/2018 12:35 AM EDT) Neutrophil % 72.9 % [facility] Neutrophil Absolute 8.37(H) 1.70 - 6.10 x10(3)/[facility] LABORATORY Lymph % 18.4 % [facility] Lymphocytes Abs 2.1 0.9 - 3.2 x10(3)/[facility] LABORATORY Monocyte % 7.8 % [facility] Monocyte Abs 0.9 0.3 - 0.9 x10(3)/[facility] LABORATORY Eos % 0.0 % [facility] Eosinophils Abs 0.0 0.0 - 0.4 x10(3)/[facility] LABORATORY Basophil % 0.1 % [facility] Baso Absolute 0.0 0.0 - 0.1 x10(3)/[facility] LABORATORY Immature Gran % 0.80 % [facility] Comment: Immature granulocytes(IG's)percentage and absolute count will include metamyelocytes, myelocytes, and promyelocytes. Blood smears from CBCs yielding IG's will be scanned manually for concordance. If this scan disagrees with the automated IG or if promyelocytes are noted, a manual differential will be performed. Immature Gran Absolute 0.09(H) 0.00 - 0.04 x10(3)/[facility] LABORATORY Blood specimen (specimen) 11/15/2018 12:35 AM EDT 11/15/2018 12:48 AM EDT Narrative Resulting Agency Comment Spec In Lab Kelly Bermudez MD HEMATOLOGY ORDERABLE S [facility] [place] [address] * (ABNORMAL) Hemogram (11/15/2018 12:35 AM EDT) White Blood Cell 11.5(H) 4.0 - 9.5 x10(3)/mc L [facility] Red Blood Cell 3.29(L) 4.00 - 5.21 x10(6)/mc L [facility] Hemoglobin 8.9(L) 11.7 - 15.5 gm/dL [facility] Hematocrit 29.6(L) 35.7 - 45.8 % [facility] Mean Cell Volume 90.0 82.6 - 94.4 fL [facility] Mean Cell Hemoglobin 27.1 27.1 - 32.0 pg [facility] Mean Cell Hemoglobin Concentration 30.1(L) 31.7 - 35.0 gm/dL [facility] Platelet 190 145 - 357 x10(3)/mc L [facility] RDW Standard Deviation 55.0(H) 37.0 - 46.0 fL [facility] RDW coefficient of variation 16.8(H) 11.5 - 14.1 % [facility] Mean Platelet Volume 11.4 7.6 - 12.9 fL [facility] NRBC% auto 0.0 % [facility] NRBC Absolute 0.000 0.000 - 0.000 x10(3)/mc L [facility] Blood specimen (specimen) 11/15/2018 12:35 AM EDT 11/15/2018 12:48 AM EDT Narrative Resulting Agency Comment Spec In Lab Kelly Bermudez MD HEMATOLOGY ORDERABLE S [facility] [place] [address] * (ABNORMAL) BMP w/fasting Glucose (11/15/2018 12:35 AM EDT) [facility] Signature Glucose Fasting 121(H) 65 - 99 mg/dL [facility] Comment: ?Fasting* Glucose Interpretive Criteria [...] of Diabetes Mellitus, Position Statement from the [place] [employer]. ??Diabetes Care, Volume 33, Supplement 1, Aug 2009 Blood Urea Nitrogen 30(H) 8 - 18 mg/dL [facility] Creatinine 1.45(H) 0.70 - 1.20 mg/dL [facility] Sodium 144 135 - 145 mmol/L [facility] Potassium 4.8 3.5 - 5.0 mmol/L [facility] Comment: Please note: ??Patients with WBC >100,000 may have falsely elevated Potassium levels. ??For accurate Potassium quantification in these patients send serum separator tube (gold top) for subsequent determinations. ??Contact the Clinical Chemistry Laboratory if there are any questions. Chloride 107 98 - 107 mmol/L [facility] Carbon Dioxide 25 22 - 31 mmol/L [facility] Anion Gap 12 5 - 15 mmol/L [facility] Calcium 8.7 8.5 - 10.5 mg/dL [facility] Est Glomerular Filtration Rate 40(L) >=60 mL/min/1. 73 m?? [facility] Comment: The eGFR was calculated using the CKD-EPI equation. As with all creatinine based estimates of kidney function, eGFR values calculated with the CKD-EPI equation are not accurate in patients with acute kidney failure, extremes of body mass or the acutely ill. [email or web address] eGFR 47(L) >=60 mL/min/1. 73 m?? [facility] Comment: The eGFR was calculated using the CKD-EPI equation. As with all creatinine based estimates of kidney function, eGFR values calculated with the CKD-EPI equation are not accurate in patients with acute kidney failure, extremes of body mass or the acutely ill. [email or web address] Blood specimen (specimen) 11/15/2018 12:35 AM EDT 11/15/2018 12:48 AM EDT Narrative Resulting Agency Comment Spec In Lab Vivian Valdez Jr., MD CHEMISTRY ORDERA BLES Performing Organization Address [facility] Co de Phone Number [facility] [place] [address] * POCT Glucose (11/15/2018 12:34 AM EDT) Glucose, POC 126 65 - 199 mg/dL [facility] Comment: Supplemental ranges: <140 mg/dL before meals <180 mg/dL all other times of the day Blood specimen (specimen) 11/15/2018 12:34 AM EDT 11/15/2018 12:34 AM EDT Vivian Valdez Jr., MD POINT OF CARE TE ST ORDERABLES [facility] [place] [address] * POCT Glucose (11/14/2018 7:54 PM EDT) Glucose, POC 128 65 - 199 mg/dL [facility] Comment: Supplemental ranges: <140 mg/dL before meals <180 mg/dL all other times of the day Blood specimen (specimen) 11/14/2018 7:54 PM EDT 11/14/2018 7:54 PM EDT Vivian Valdez Jr., MD POINT OF CARE TE ST ORDERABLES [facility] [place] [address] * (ABNORMAL) BLOOD GAS 2 ARTERIAL (11/14/2018 4:59 PM EDT) pH, Arterial 7.22(Criti nanette) 7.35 - 7.45 [facility] Comment:Noted by instrument shop supervisor. PCO2, Arterial 63(Critica l) 35 - 45 mmHg [facility] Comment:Noted by instrument shop supervisor. PO2, Arterial 72(L) 85 - 104 mmHg [facility] Bicarbonate, Arterial 25.4 20.0 - 26.0 mmol/L [facility] Base Excess, Arterial -2.2 -3.0 - 3.0 mmol/L [facility] Hgb Blood Gas 10.4(L) 11.7 - 15.5 gm/dL [facility] Oxyhemoglobin, Arterial 91.7(L) 94.0 - 97.0 % [facility] Carboxyhemoglob in, Arterial 0.3 % [facility] Comment: Nonsmokers: 0.5-1.5% COHB Smokers: Variable, but usually less than 10% Toxic: 20-30% COHB Lethal: Greater than 60% COHB Methemoglobin, Arterial 0.3 <=1.5 % [facility] Na Whole Blood 142 135 - 145 mmol/L [facility] K Whole Blood 4.7 3.5 - 5.0 mmol/L [facility] Comment: Please note: Patients with WBC >100,000 may have falsely elevated Potassium levels. Contact the Clinical Chemistry Laboratory if there are any questions. ICa Whole Blood 1.18 1.15 - 1.33 mmol/L [facility] Comment: Note: ??Total bilirubin higher than 20 mg/dL may lead to falsely low ionized calcium. CL Whole Blood 109(H) 98 - 107 mmol/L [facility] Gluc Whole Bld 135 65 - 199 mg/dL [facility] Comment:Diabetes: >=200 mg/d L plus symptoms. Lactate WB 1.2 0.5 - 2.2 mmol/L [facility] FIO2 Art 40 % [facility] PF Ratio Art 180 [facility] Blood specimen (specimen) 11/14/2018 4:59 PM EDT 11/14/2018 4:59 PM EDT Vivian Valdez Jr., MD POINT OF CARE TE ST ORDERABLES [facility] [place] [address] * POCT Glucose (11/14/2018 4:18 PM EDT) Glucose, POC 131 65 - 199 mg/dL [facility] Comment: Supplemental ranges: <140 mg/dL before meals <180 mg/dL all other times of the day Blood specimen (specimen) 11/14/2018 4:18 PM EDT 11/14/2018 4:18 PM EDT Vivian Valdez Jr., MD POINT OF CARE TE ST ORDERABLES Performing Organization Address City/[facility]/ZIP Co de Phone Number [facility] [place] [address] * POCT Glucose (11/14/2018 12:08 PM EDT) Glucose, POC 164 65 - 199 mg/dL [facility] Comment: Supplemental ranges: <140 mg/dL before meals <180 mg/dL all other times of the day Blood specimen (specimen) 11/14/2018 12:08 PM EDT 11/14/2018 12:08 PM EDT Vivian Valdez Jr., MD POINT OF CARE TE ST ORDERABLES Performing Organization Address City/[facility]/ZIP Co de Phone Number [facility] [place] [address] * (ABNORMAL) BLOOD GAS 2 ARTERIAL (11/14/2018 10:26 AM EDT) pH, Arterial 7.21(Criti nanette) 7.35 - 7.45 [facility] PCO2, Arterial 60(H) 35 - 45 mmHg [facility] PO2, Arterial 77(L) 85 - 104 mmHg [facility] Bicarbonate, Arterial 23.5 20.0 - 26.0 mmol/L [facility] Base Excess, Arterial -4.3(L) -3.0 - 3.0 mmol/L [facility] Hgb Blood Gas 10.6(L) 11.7 - 15.5 gm/dL [facility] Oxyhemoglobin, Arterial 92.7(L) 94.0 - 97.0 % [facility] Carboxyhemoglob in, Arterial 0.2 % [facility] Comment: Nonsmokers: 0.5-1.5% COHB Smokers: Variable, but usually less than 10% Toxic: 20-30% COHB Lethal: Greater than 60% COHB Methemoglobin, Arterial 0.3 <=1.5 % [facility] Na Whole Blood 141 135 - 145 mmol/L [facility] K Whole Blood 4.9 3.5 - 5.0 mmol/L [facility] Comment: Please note: Patients with WBC >100,000 may have falsely elevated Potassium levels. Contact the Clinical Chemistry Laboratory if there are any questions. ICa Whole Blood 1.19 1.15 - 1.33 mmol/L [facility] Comment: Note: ??Total bilirubin higher than 20 mg/dL may lead to falsely low ionized calcium. CL Whole Blood 108(H) 98 - 107 mmol/L [facility] Gluc Whole Bld 179 65 - 199 mg/dL [facility] Comment:Diabetes: >=200 mg/d L plus symptoms. Lactate WB 1.1 0.5 - 2.2 mmol/L [facility] FIO2 Art 50 % [facility] PF Ratio Art 154 [facility] Blood specimen (specimen) 11/14/2018 10:26 AM EDT 11/14/2018 10:26 AM EDT Vivian Valdez Jr., MD POINT OF CARE ST ORDERABLES Performing Organization Address [facility]/ZIP Co de Phone Number [facility] [place] [address] * POCT Glucose (11/14/2018 8:51 AM EDT) Pathologist [facility] Glucose, POC 181 65 - 199 mg/dL [facility] Comment: Supplemental ranges: <140 mg/dL before meals <180 mg/dL all other times of the day Blood specimen (specimen) 11/14/2018 8:51 AM EDT 11/14/2018 8:51 AM EDT Vivian Valdez Jr., MD POINT OF CARE ST ORDERABLES Performing Organization Address [facility] Co de Phone Number [facility] [place] [address] * Scan, Peripheral Blood (11/14/2018 8:50 AM EDT) [facility] Plat estimate Normal [facility] RBC Morphology Abnormal [facility] Hypochromia Slight [facility] Inocencio Cells 1-5 /HPF [facility] Blood specimen (specimen) 11/14/2018 8:50 AM EDT 11/14/2018 8:57 AM EDT Narrative Resulting Agency Comment Spec In Lab Kelly Bermudez MD HEMATOLOGY ORDERABLE S Performing Organization Address [facility] Co de Phone Number [facility] [place] [address] * (ABNORMAL) Differential, Automated (11/14/2018 8:50 AM EDT) [facility] Neutrophil % 83.3 % [facility] Neutrophil Absolute 12.67(H) 1.70 - 6.10 x10(3)/mc L [facility] Lymph % 10.1 % [facility] Lymphocytes Abs 1.5 0.9 - 3.2 x10(3)/[facility] Monocyte % 5.9 % [facility] Monocyte Abs 0.9 0.3 - 0.9 x10(3)/[facility] Eos % 0.0 % [facility] Eosinophils Abs 0.0 0.0 - 0.4 x10(3)/[facility] Basophil % 0.1 % [facility] Baso Absolute 0.0 0.0 - 0.1 x10(3)/[facility] Immature Gran % 0.60 % [facility] Comment: Immature granulocytes(IG's)percentage and absolute count will include metamyelocytes, myelocytes, and promyelocytes. Blood smears from CBCs yielding IG's will be scanned manually for concordance. If this scan disagrees with the automated IG or if promyelocytes are noted, a manual differential will be performed. Immature Gran Absolute 0.09(H) 0.00 - 0.04 x10(3)/[facility]ORY Blood specimen (specimen) 11/14/2018 8:50 AM EDT 11/14/2018 8:57 AM EDT Narrative Resulting Agency Comment Spec In Lab Kelly Bermudez MD HEMATOLOGY ORDERABLE S [facility] [place] [address] * (ABNORMAL) Hemogram (11/14/2018 8:50 AM EDT) White Blood Cell 15.2(H) 4.0 - 9.5 x10(3)/[facility]ATORY Red Blood Cell 3.46(L) 4.00 - 5.21 x10(6)/[facility]ORY Hemoglobin 9.3(L) 11.7 - 15.5 gm/dL [facility] Hematocrit 31.2(L) 35.7 - 45.8 % [facility] Mean Cell Volume 90.2 82.6 - 94.4 fL [facility] Mean Cell Hemoglobin 26.9(L) 27.1 - 32.0 pg [facility] Mean Cell Hemoglobin Concentration 29.8(L) 31.7 - 35.0 gm/dL [facility] Platelet 247 145 - 357 x10(3)/mc L [facility] RDW Standard Deviation 55.4(H) 37.0 - 46.0 fL [facility] RDW coefficient of variation 16.7(H) 11.5 - 14.1 % [facility] Mean Platelet Volume 11.5 7.6 - 12.9 fL [facility] NRBC% auto 0.0 % [facility] NRBC Absolute 0.000 0.000 - 0.000 x10(3)/mc L [facility] Blood specimen (specimen) 11/14/2018 8:50 AM EDT 11/14/2018 8:57 AM EDT Narrative Resulting Agency Comment Spec In Lab Kelly Bermudez MD HEMATOLOGY ORDERABLE S Performing Organization Address City/State/[facility] Co de Phone Number [facility] [place] [address] * (ABNORMAL) BLOOD GAS 2 ARTERIAL (11/14/2018 5:22 AM EDT) pH, Arterial 7.13(Criti nanette) 7.35 - 7.45 [facility] PCO2, Arterial 71(Critica l) 35 - 45 mmHg [facility] PO2, Arterial 79(L) 85 - 104 mmHg [facility] Bicarbonate, Arterial 23.0 20.0 - 26.0 mmol/L [facility] Base Excess, Arterial -6.2(L) -3.0 - 3.0 mmol/L [facility] Hgb Blood Gas 11.1(L) 11.7 - 15.5 gm/dL [facility] Oxyhemoglobin, Arterial 91.6(L) 94.0 - 97.0 % [facility] Carboxyhemoglob in, Arterial 0.5 % [facility] Comment: Nonsmokers: 0.5-1.5% COHB Smokers: Variable, but usually less than 10% Toxic: 20-30% COHB Lethal: Greater than 60% COHB Methemoglobin, Arterial 0.3 <=1.5 % [facility] Na Whole Blood 141 135 - 145 mmol/L [facility] K Whole Blood 4.8 3.5 - 5.0 mmol/L [facility] Comment: Please note: Patients with WBC >100,000 may have falsely elevated Potassium levels. Contact the Clinical Chemistry Laboratory if there are any questions. ICa Whole Blood 1.20 1.15 - 1.33 mmol/L [facility] Comment: Note: ??Total bilirubin higher than 20 mg/dL may lead to falsely low ionized calcium. CL Whole Blood 108(H) 98 - 107 mmol/L [facility] Gluc Whole Bld 193 65 - 199 mg/dL [facility] Comment:Diabetes: >=200 mg/d L plus symptoms. Lactate WB 0.9 0.5 - 2.2 mmol/L [facility] FIO2 Art 50 % [facility] PF Ratio Art 158 [facility] Blood specimen (specimen) 11/14/2018 5:22 AM EDT 11/14/2018 5:22 AM EDT Vivian Valdez Jr., MD POINT OF CARE TE ST ORDERABLES [facility] [place] [address] * (ABNORMAL) Basic Metabolic Panel (non-fasting) (11/14/2018 5:20 AM EDT) Glucose 186 65 - 199 mg/dL [facility] Comment:Diabetes: >=200 mg/d L plus symptoms Blood Urea Nitrogen 24(H) 8 - 18 mg/dL [facility] Creatinine 1.30(H) 0.70 - 1.20 mg/dL [facility] Sodium 143 135 - 145 mmol/L [facility] Potassium 4.9 3.5 - 5.0 mmol/L [facility] Comment: Please note: ??Patients with WBC >100,000 may have falsely elevated Potassium levels. ??For accurate Potassium quantification in these patients send serum separator tube (gold top) for subsequent determinations. ??Contact the Clinical Chemistry Laboratory if there are any questions. Chloride 108(H) 98 - 107 mmol/L [facility] Carbon Dioxide 23 22 - 31 mmol/L [facility] Anion Gap 12 5 - 15 mmol/L [facility] Calcium 8.3(L) 8.5 - 10.5 mg/dL [facility] Est Glomerular Filtration Rate 46(L) >=60 mL/min/1. 73 m?? [facility] Comment: The eGFR was calculated using the CKD-EPI equation. As with all creatinine based estimates of kidney function, eGFR values calculated with the CKD-EPI equation are not accurate in patients with acute kidney failure, extremes of body mass or the acutely ill. [email or web address] [email or web address] eGFR 53(L) >=60 mL/min/1. 73 m?? [facility] Comment: The eGFR was calculated using the CKD-EPI equation. As with all creatinine based estimates of kidney function, eGFR values calculated with the CKD-EPI equation are not accurate in patients with acute kidney failure, extremes of body mass or the acutely ill. [email or web address] Blood specimen (specimen) 11/14/2018 5:20 AM EDT 11/14/2018 5:32 AM EDT Narrative Resulting Agency Comment Spec In Lab Vivian Valdez Jr., MD CHEMISTRY ORDERA [facility] [place] Organization Address City/State/ZIP Co de Phone Number [facility] [place] [address] * POCT Glucose (11/14/2018 2:33 AM EDT) [facility] Glucose, POC 192 65 - 199 mg/dL [facility] Comment: Supplemental ranges: <140 mg/dL before meals <180 mg/dL all other times of the day Blood specimen (specimen) 11/14/2018 2:33 AM EDT 11/14/2018 2:33 AM EDT Vivian Valdez Jr., MD POINT OF CARE TE ST ORDERABLES Performing Organization Address City/[facility]/ZIP Co de Phone Number [facility] [place] [address] * Blood culture (11/14/2018 1:43 AM EDT) [facility] Blood Culture No growth at 5 days. [facility] Blood specimen (specimen) 11/14/2018 1:43 AM EDT 11/14/2018 2:12 AM EDT Comment:NEW A LINE Narrative Resulting Agency Comment Spec In Lab Vivian Valdez Jr., MD MICROBIOLOGY - B LOOD ORDERABLES Performing Organization Address [facility]/ZIP Co de Phone Number [facility] [place] [address] * (ABNORMAL) BLOOD GAS 2 ARTERIAL (11/14/2018 1:40 AM EDT) [facility] pH, Arterial 7.08(Criti nanette) 7.35 - 7.45 [facility] Comment:Noted by instrument shop supervisor. PCO2, Arterial 77(Critica l) 35 - 45 mmHg [facility] Comment:Noted by instrument shop supervisor. PO2, Arterial 114(H) 85 - 104 mmHg [facility] Bicarbonate, Arterial 22.4 20.0 - 26.0 mmol/L [facility] Base Excess, Arterial -7.6(L) -3.0 - 3.0 mmol/L [facility] Hgb Blood Gas 11.4(L) 11.7 - 15.5 gm/dL [facility] Oxyhemoglobin, Arterial 96.0 94.0 - 97.0 % [facility] Carboxyhemoglob in, Arterial 0.1 % [facility] Comment: Nonsmokers: 0.5-1.5% COHB Smokers: Variable, but usually less than 10% Toxic: 20-30% COHB Lethal: Greater than 60% COHB Methemoglobin, Arterial 0.4 <=1.5 % [facility] Na Whole Blood 141 135 - 145 mmol/L [facility] K Whole Blood 4.4 3.5 - 5.0 mmol/L [facility] Comment: Please note: Patients with WBC >100,000 may have falsely elevated Potassium levels. Contact the Clinical Chemistry Laboratory if there are any questions. ICa Whole Blood 1.21 1.15 - 1.33 mmol/L [facility] Comment: Note: ??Total bilirubin higher than 20 mg/dL may lead to falsely low ionized calcium. CL Whole Blood 108(H) 98 - 107 mmol/L [facility] Gluc Whole Bld 196 65 - 199 mg/dL [facility] Comment:Diabetes: >=200 mg/d L plus symptoms. Lactate WB 0.8 0.5 - 2.2 mmol/L [facility] FIO2 Art 80 % [facility] PF Ratio Art 142 [facility] Blood specimen (specimen) 11/14/2018 1:40 AM EDT 11/14/2018 1:40 AM EDT Vivian Valdez Jr., MD POINT OF CARE TE ST ORDERABLES [facility] [place] [address] * Urea nitrogen, urine, random (11/13/2018 11:50 PM EDT) Urea Nitrogen, Urine 168 mg/dL [facility] Urine specimen (specimen) Urine / Unknown 11/13/2018 11:50 PM EDT 11/14/2018 Narrative Resulting Agency Comment Spec In Lab Natali Kingston MD URINE ORDERABLES Performing Organization Address City/[facility] Co de Phone Number [facility] [address] * Creatinine, urine, random (11/13/2018 11:50 PM EDT) Creatinine, Urine 59 mg/dL [facility] Urine specimen (specimen) Urine / Unknown 11/13/2018 11:50 PM EDT 11/14/2018 Narrative Resulting Agency Comment Spec In Lab Natali Kingston MD URINE ORDERABLES Performing Organization Address [facility] Co de Phone Number [facility] [place] [address] * Electrolytes, urine, random (11/13/2018 11:50 PM EDT) Sodium, Urine 38 mmol/L [facility] Potassium, Urine 40 mmol/L [facility] Chloride, Urine 48 mmol/L [facility] Urine specimen (specimen) Urine / Unknown 11/13/2018 11:50 PM EDT 11/14/2018 Narrative Resulting Agency Comment Spec In Lab Natali Kingston MD URINE ORDERABLES Performing Organization Address [facility] Co de Phone Number [facility] [address] * Legionella Urinary Antigen (11/13/2018 11:50 PM EDT) Legionella Urinary Antigen Negative Negative [facility] Comment: A negative Legionella Urinary Antigen [...] - G ENERAL ORDERABLES Performing Organization Address [facility] Co de Phone Number [facility] [address] * (ABNORMAL) Urinalysis Microscopic Exam (11/13/2018 11:39 PM EDT) RBC, Urine 28(H) 0 - 4 /HPF [facility] WBC, Urine 2 0 - 5 /HPF [facility] Urine specimen obtained via indwelling urinary catheter (specimen) 11/13/2018 11:39 PM EDT 11/13/2018 11:58 PM EDT Narrative Resulting Agency Comment Spec In Lab Natali Kingston MD URINE ORDERABLES Performing Organization Address [facility] Co de Phone Number [facility] [place] [address] * (ABNORMAL) Urinalysis with reflex Culture (11/13/2018 11:39 PM EDT) Glucose, Urine Dipstick Negative Negative mg/dL [facility] Protein, Urine Dipstick 30(A) Negative mg/dL [facility] Bilirubin, Urine Dipstick Negative Negative mg/dL [facility] Comment: Clinical correlation required for positive Urine Bilirubin results as false positive may occur with some drugs and drug related products. If a false positive is suspected a serum total bilirubin should be considered if clinically indicated. Urobilinogen, Urine Dipstick Normal Normal mg/dL [facility] pH, Urn (dipstick) 5.0 5.0 - 8.0 [facility] Blood, Urine Dipstick Moderate(A) Negative mg/dL [facility] Ketone, Urine Dipstick Negative Negative mg/dL [facility] Nitrite, Urine Dipstick Negative Negative [facility] Leukocytes, Urine Dipstick Negative Negative [facility] Appearance, Urine Dipstick Clear Clear [facility] Specific [place] Urine Automated 1.016 1.002 - 1.030 [facility] Color, Urine Dipstick Yellow Yellow [facility] Reflex to Culture No [facility] Urine specimen obtained via indwelling urinary catheter (specimen) 11/13/2018 11:39 PM EDT 11/13/2018 11:58 PM EDT Narrative Resulting Agency Comment Spec In Lab Vivian Valdez Jr., MD URINE ORDERABLES Performing Organization Address [facility] Co de Phone Number [facility] [place] [address] * EKG 12 Lead (11/13/2018 11:11 PM EDT) Ventricular rate 61 BPM MUSE SYSTEM Atrial Rate 61 BPM MUSE SYSTEM P-R Interval 140 ms MUSE SYSTEM QRS Duration 106 ms MUSE SYSTEM Q-T Interval 450 ms MUSE SYSTEM QTC Calculated (Bezet) 453 ms MUSE SYSTEM Calculated P [place] 3 degrees MUSE SYSTEM Calculated R [place] 61 degrees MUSE SYSTEM Calculated T [place] 70 degrees MUSE SYSTEM INTERPRETATION Normal sinus rhythm RSR' or QR pattern in V1 suggests right ventricular conduction delay Nonspecific ST abnormality Abnormal ECG No previous ECGs available Confirmed by MD Rick, Eran Levi ([id number]) on 11/14/2018 9:48:29 AM MUSE SYSTEM 11/13/2018 11:1 1 PM EDT 11/14/2018 9:48 AM EDT Vivian Valdez Jr., MD ECG ORDERABLES Performing Organization Address City/[facility] Co de Phone Number MUSE SYSTEM * Blood culture (11/13/2018 10:40 PM EDT) Blood Culture No growth at 5 days. [facility] Blood specimen (specimen) 11/13/2018 10:40 PM EDT 11/13/2018 11:20 PM EDT Comment:L AC Narrative Resulting Agency Comment Spec In Lab Vivian Valdez Jr., MD MICROBIOLOGY - B LOOD ORDERABLES [facility] [place] [address] * (ABNORMAL) BLOOD GAS 2 ARTERIAL (11/13/2018 10:21 PM EDT) pH, Arterial 7.22(Criti nanette) 7.35 - 7.45 [facility] Comment:Noted by instrument shop supervisor. PCO2, Arterial 53(H) 35 - 45 mmHg [facility] PO2, Arterial 98 85 - 104 mmHg [facility] Bicarbonate, Arterial 21.0 20.0 - 26.0 mmol/L [facility] Base Excess, Arterial -6.7(L) -3.0 - 3.0 mmol/L [facility] Hgb Blood Gas 11.1(L) 11.7 - 15.5 gm/dL [facility] Oxyhemoglobin, Arterial 95.5 94.0 - 97.0 % [facility] Carboxyhemoglob in, Arterial 0.4 % [facility] Comment: Nonsmokers: 0.5-1.5% COHB Smokers: Variable, but usually less than 10% Toxic: 20-30% COHB Lethal: Greater than 60% COHB Methemoglobin, Arterial 0.3 <=1.5 % [facility] Na Whole Blood 138 135 - 145 mmol/L [facility] K Whole Blood 4.8 3.5 - 5.0 mmol/L [facility] Comment: Please note: Patients with WBC >100,000 may have falsely elevated Potassium levels. Contact the Clinical Chemistry Laboratory if there are any questions. ICa Whole Blood 1.19 1.15 - 1.33 mmol/L [facility] Comment: Note: ??Total bilirubin higher than 20 mg/dL may lead to falsely low ionized calcium. CL Whole Blood 108(H) 98 - 107 mmol/L [facility] Gluc Whole Bld 198 65 - 199 mg/dL [facility] Comment:Diabetes: >=200 mg/d L plus symptoms. Lactate WB 1.4 0.5 - 2.2 mmol/L [facility] FIO2 Art 100 % [facility] PF Ratio Art 98 [facility] Blood specimen (specimen) 11/13/2018 10:21 PM EDT 11/13/2018 10:21 PM EDT Vivian Valdez Jr., MD POINT OF CARE TE ST ORDERABLES Performing Organization Address City/[facility]/ZIP Co de Phone Number [facility] [place] [address] * LDL Cholesterol, Direct (11/13/2018 10:20 PM EDT) LDL Cholesterol, Direct 73 mg/dL [facility] Comment: Lowest Risk: <100 mg/dL Lower Risk: 100-129 mg/dL Borderline High Risk: 130-159 mg/dL High Risk: 160-189 mg/dL Very High Risk: >qg=003 mg/dL Blood specimen (specimen) 11/13/2018 10:20 PM EDT 11/14/2018 2:44 AM EDT Narrative Resulting Agency Comment Spec In Lab Vivian Valdez Jr., MD CHEMISTRY ORDERA BLES Performing Organization Address [facility]/ZIP Co de Phone Number [facility] [place] [address] * HDL/Cholesterol Profile (11/13/2018 10:20 PM EDT) Cholesterol, Total 143 mg/dL [facility] Comment: Lower Risk: <200 mg/dL Average Risk: 200-239 mg/dL Higher Risk: >bl=212 mg/dL HDL Cholesterol 32 mg/dL [facility] Comment: Males: ?? Higher Risk: <40 mg/dL Females: ?? HIgher Risk: <50 mg/dL Cholesterol/HDL Ratio 4.5 ratio [facility] Chol/HDL Interpretation See Note [facility] Comment: Lipid management should be guided by a patient? s ASCVD risk, goals and preferences. ACC/AHA Guidelines recommend high intensity statin if clinical ASCVD or LDL greater than or equal to 190 mg/dL. [email or web address] Measure LDL if Total Cholesterol minus HDL Cholesterol is greater than 220 mg/dL. Adults aged 40-75 with LDL 70-189 mg/dL should have their 10 year ASCVD risk estimated with the ACC/AHA ASCVD risk auto damage estimator http://tools.acc.org/USUHZ-Mavf-Wetpwryet/ Statin should be discussed if risk greater [...] Vivian Valdez Jr., MD CHEMISTRY ORDERA BLES [facility] [place] [address] * (ABNORMAL) Hemoglobin A1c (11/13/2018 10:20 PM EDT) Hemoglobin A1c 6.2(H) 4.3 - 5.6 % [facility] Comment: Reference Range: 4.3 - [...] Mellitus, Diabetes Care 2013; 36: Suppl. 1, F85-01 Estimated Average Glucose 131 mg/dL [facility] Comment: eAG equivalents for HbA1c [...] into estimated average glucose values. ??Diabetes Care 2008:31(8):8499-8276. Blood specimen (specimen) 11/13/2018 10:20 PM EDT 11/14/2018 3:03 AM EDT Narrative Resulting Agency Comment Spec In Lab Vivian Valdez Jr., MD CHEMISTRY [facility] [place] [address] * (ABNORMAL) Differential, Automated (11/13/2018 10:20 PM EDT) Neutrophil % 85.4 % [facility] Neutrophil Absolute 13.88(H) 1.70 - 6.10 x10(3)/mc L [facility] Lymph % 8.1 % [facility] Lymphocytes Abs 1.3 0.9 - 3.2 x10(3)/mc L [facility] Monocyte % 5.5 % [facility] Monocyte Abs 0.9 0.3 - 0.9 x10(3)/[facility] Eos % 0.0 % [facility] Eosinophils Abs 0.0 0.0 - 0.4 x10(3)/[facility] Basophil % 0.2 % [facility] Baso Absolute 0.0 0.0 - 0.1 x10(3)/[facility] Immature Gran % 0.80 % [facility] Comment: Immature granulocytes(IG's)percentage and absolute count will include metamyelocytes, myelocytes, and promyelocytes. Blood smears from CBCs yielding IG's will be scanned manually for concordance. If this scan disagrees with the automated IG or if promyelocytes are noted, a manual differential will be performed. Immature Gran Absolute 0.13(H) 0.00 - 0.04 x10(3)/[facility] LABORATORY Blood specimen (specimen) 11/13/2018 10:20 PM EDT 11/13/2018 10:35 PM EDT Narrative Resulting Agency Comment Spec In Lab Natali Kingston MD HEMATOLOGY ORDERABL ES [facility] [place] [address] * (ABNORMAL) Hemogram (11/13/2018 10:20 PM EDT) White Blood Cell 16.2(H) 4.0 - 9.5 x10(3)/[facility] LABORATORY Red Blood Cell 3.65(L) 4.00 - 5.21 x10(6)/[facility] LABORATORY Hemoglobin 10.0(L) 11.7 - 15.5 gm/dL [facility] Hematocrit 32.4(L) 35.7 - 45.8 % [facility] Mean Cell Volume 88.8 82.6 - 94.4 fL [facility] Mean Cell Hemoglobin 27.4 27.1 - 32.0 pg [facility] Mean Cell Hemoglobin Concentration 30.9(L) 31.7 - 35.0 gm/dL [facility] Platelet 225 145 - 357 x10(3)/mc L [facility] RDW Standard Deviation 53.9(H) 37.0 - 46.0 fL [facility] RDW coefficient of variation 16.6(H) 11.5 - 14.1 % [facility] Mean Platelet Volume 11.6 7.6 - 12.9 fL [facility] NRBC% auto 0.0 % [facility] LABORATORY NRBC Absolute 0.000 0.000 - 0.000 x10(3)/mc L [facility] Blood specimen (specimen) 11/13/2018 10:20 PM EDT 11/13/2018 10:35 PM EDT Narrative Resulting Agency Comment Spec In Lab Natali Kingston MD HEMATOLOGY ORDERABL ES Performing Organization Address [facility] Co de Phone Number [facility] [place] [address] * CK (11/13/2018 10:20 PM EDT) Pathologist [facility] Creatine Kinase 159 0 - 160 unit/L [facility] Blood specimen (specimen) 11/13/2018 10:20 PM EDT 11/13/2018 10:35 PM EDT Narrative Resulting Agency Comment Spec In Lab Vivian Valdez Jr., MD CHEMISTRY ORDERA BLES Performing Organization Address [facility]/ZIP Co de Phone Number [facility] [place] [address] * Troponin (11/13/2018 10:20 PM EDT) [facility] Troponin-T <0.01 0.00 - 0.00 ng/mL [facility] Comment: The 99th percentile for Troponin T is less than 0.01 ng/mL, any detectable cTnT concentration using this assay should be considered elevated. According to the third universal definition of myocardial infarction the following criteria with a clinical presentation consistent with acute myocardial ischemia meets the diagnosis for a myocardial infarction (ME). Detection of a rise and/or fall of cTnT, with at least one value greater than the 99th percentile (> or = 0.01) and with at least one of the following ?? Symptoms of ischemia ?? New or presumed new significant BX-[id number] wave (ST-T) changes or new left bundle [...] additional sample may be indicated. Reference: Third [place] Definition of Myocardial Infarction. Journal of the [place] College of Cardiology 2012;60:1581-98 Blood specimen (specimen) 11/13/2018 10:20 PM EDT 11/13/2018 10:35 PM EDT Narrative Resulting Agency Comment Spec In Lab Vivian Valdez Jr., MD CHEMISTRY ORDERA BLES Performing Organization Address [facility]/ZIP Co de Phone Number [facility] [place] [address] * (ABNORMAL) T4, free (11/13/2018 10:20 PM EDT) Free T4 0.87(L) 0.93 - 1.70 ng/dL [facility] Blood specimen (specimen) 11/13/2018 10:20 PM EDT 11/13/2018 10:35 PM EDT Narrative Resulting Agency Comment Spec In Lab Vivian Valdez Jr., MD CHEMISTRY ORDERA BLEDelias Performing Organization Address City/[facility]/ZIP Co de Phone Number [facility] [place] [address] * (ABNORMAL) TSH (11/13/2018 10:20 PM EDT) Thyroid Stimulating Hormone 0.18(L) 0.27 - 4.20 mcIU/mL [facility] Blood specimen (specimen) 11/13/2018 10:20 PM EDT 11/13/2018 10:35 PM EDT Narrative Resulting Agency Comment Spec In Lab Vivian Valdez Jr., MD CHEMISTRY ORDERA KAYLEY Performing Organization Address [facility] Co de Phone Number [facility] [place] [address] * (ABNORMAL) pro-Brain Natriuretic Peptide (11/13/2018 10:20 PM EDT) NT-proBNP 2,920(H) <=125 pg/mL [facility] Blood specimen (specimen) 11/13/2018 10:20 PM EDT 11/13/2018 10:35 PM EDT Narrative Resulting Agency Comment Spec In Lab Vivian Valdez Jr., MD CHEMISTRY ORDERA KAYLEY Performing Organization Address [facility] Co de Phone Number [facility] [place] [address] * (ABNORMAL) CMP w/fasting Glucose (11/13/2018 10:20 PM EDT) Glucose Fasting 195(H) 65 - 99 mg/dL [facility] Comment: ?Fasting* Glucose Interpretive Criteria [...] of Diabetes Mellitus, Position Statement from the [place] Diabetes Association. ??Diabetes Care, Volume 33, Supplement 1, Aug 2009 Blood Urea Nitrogen 20(H) 8 - 18 mg/dL [facility] Creatinine 1.33(H) 0.70 - 1.20 mg/dL [facility] Sodium 140 135 - 145 mmol/L [facility] Potassium 4.9 3.5 - 5.0 mmol/L [facility] Comment: Please note: ??Patients with WBC >100,000 may have falsely elevated Potassium levels. ??For accurate Potassium quantification in these patients send serum separator tube (gold top) for subsequent determinations. ??Contact the Clinical Chemistry Laboratory if there are any questions. Chloride 105 98 - 107 mmol/L [facility] Carbon Dioxide 22 22 - 31 mmol/L [facility] Anion Gap 13 5 - 15 mmol/L [facility] Calcium 8.6 8.5 - 10.5 mg/dL [facility] Protein, Total 6.2 6.1 - 8.0 gm/dL [facility] Albumin 3.1(L) 3.2 - 5.2 gm/dL [facility] Aspartate Aminotransferase 30 0 - 30 unit/L [facility] Alanine Aminotransferase 16 0 - 30 unit/L [facility] Alkaline Phosphatase 89 40 - 104 unit/L [facility] Bilirubin, Total 0.2 0.2 - 1.3 mg/dL [facility] Est Glomerular Filtration Rate 45(L) >=60 mL/min/1. 73 m?? [facility] Comment: The eGFR was calculated using the CKD-EPI equation. As with all creatinine based estimates of kidney function, eGFR values calculated with the CKD-EPI equation are not accurate in patients with acute kidney failure, extremes of body mass or the acutely ill. http://[employer]/DHnkf eGFR 52(L) >=60 mL/min/1. 73 m?? [facility] Comment: The eGFR was calculated using the CKD-EPI equation. As with all creatinine based estimates of kidney function, eGFR values calculated with the CKD-EPI equation are not accurate in patients with acute kidney failure, extremes of body mass or the acutely ill. http://[employer]/DHMCnkf Blood specimen (specimen) 11/13/2018 10:20 PM EDT 11/13/2018 10:35 PM EDT Narrative Resulting Agency Comment Spec In Lab Vivian Valdez Jr., MD CHEMISTRY ORDERA BLES Performing Organization Address [facility] Co de Phone Number [facility] [place] [address] * (ABNORMAL) Phosphorus (11/13/2018 10:20 PM EDT) Phosphorus 5.6(H) 2.5 - 4.5 mg/dL [facility] Blood specimen (specimen) 11/13/2018 10:20 PM EDT 11/13/2018 10:35 PM EDT Narrative Resulting Agency Comment Spec In Lab Vivian Valdez Jr., MD CHEMISTRY WALLYA BLEDelisa Performing Organization Address [facility] Co de Phone Number [facility] [place] [address] * Magnesium (11/13/2018 10:20 PM EDT) Magnesium 0.94 0.69 - 1.07 mmol/L [facility] Blood specimen (specimen) 11/13/2018 10:20 PM EDT 11/13/2018 10:35 PM EDT Narrative Resulting Agency Comment Spec In Lab Vivian Valdez Jr., MD CHEMISTRY ORDERA BLEDelisa Performing Organization Address [facility] Co de Phone Number [facility] [place] [address] * (ABNORMAL) APTT (11/13/2018 10:20 PM EDT) Partial Thromboplastin Time 24(L) 25 - 37 sec [facility] Comment: The PTT is NOT appropriate for heparin monitoring. Use the Anti-Xa level for heparin monitoring (HEP UFH) or LMWH monitoring (HEP LMW). A PTT less than 37 seconds generally indicates adequate hemostasis. Blood specimen (specimen) 11/13/2018 10:20 PM EDT 11/13/2018 10:35 PM EDT Narrative Resulting Agency Comment Spec In Lab Vivian Valdez Jr., MD HEMATOLOGY ORDER DAMARIS Performing Organization Address [facility] de Phone Number [facility] [address] * Prothrombin Time (11/13/2018 10:20 PM EDT) Prothrombin Time 12.5 9.4 - 12.5 sec [facility] International Normalization Ratio 1.1 [facility] Comment: An INR <2.0 indicates [...] Organization Address [facility] de Phone Number [facility] [address] * XR Abdomen 1 view (Generic) (11/13/2018 [...] (11/13/2018 10:15 PM EDT) Respiratory Panel Source STIPPLER Swab [facility] Respiratory Panel PCR Positive(A) Negative [facility] Comment: Respiratory Panels are performed on the arviem AG, using multiplexed PCR nucleic acid detection. ??Negative results do not preclude respiratory infection and should not be used as the sole basis for diagnosis, treatment or other management decisions. Adenovirus Not Detected Not Detected [facility] Coronavirus HKU1 Not Detected Not Detected [facility] Coronavirus NL63 Not Detected Not Detected [facility] Coronavirus 229E Not Detected Not Detected [facility] Coronavirus OC43 Not Detected Not Detected [facility] Human Metapneumovirus Not Detected Not Detected [facility] Human Rhinovirus/Enterov irus Not Detected Not Detected [facility] Influenza A Not Detected Not Detected [facility] Influenza A H1 Not Detected Not Detected [facility] Influenza A H1-2009 Detected(A) Not Detected [facility] Influenza A H3 Not Detected Not Detected [facility] Influenza B Not Detected Not Detected [facility] Parainfluenza 1 Not Detected Not Detected [facility] Parainfluenza 2 Not Detected Not Detected [facility] Parainfluenza 3 Not Detected Not Detected [facility] Parainfluenza 4 Not Detected Not Detected [facility] Respiratory Syncytial Virus Not Detected Not Detected [facility] Chlamydophila pneumoniae Not Detected Not Detected [facility] Mycoplasma pneumoniae Not Detected Not Detected [facility] Nasopharyngeal swab (specimen) 11/13/2018 10:15 PM EDT 11/13/2018 11:06 PM EDT Narrative Resulting Agency Comment Spec In Lab Vivian Valdez Jr., MD MICROBIOLOGY - [facility] ORDERABLES Performing Organization Address City/State/[facility] Co de Phone Number [facility] [place] [address] * Lower Respiratory Culture Bronchial Alveolar Lavage (11/13/2018 10:15 PM EDT) Lower Respiratory Culture No growth [facility] Gram Stain Few Neutrophils seen No squamous epithelial cells Rare mixed bacterial morphotypes suggestive of normal upper respiratory caryn [facility] Bronchoalveolar lavage fluid specimen (specimen) 11/13/2018 10:15 PM EDT 11/14/2018 7:52 AM EDT Narrative Resulting Agency Comment Spec In Lab Vivian Valdez Jr., MD MICROBIOLOGY - G ENERAL ORDERABLES [facility] [place] [address] * XR Chest PA or AP 1 [...] course of the esophagus courses off the kcwff-rj-mvve inferiorly over the abdomen. Procedure Note Delano [...] course of the esophagus courses off the znalc-tl-mimd inferiorly overthe abdomen. IMPRESSION Diffuse airspace and [...] restart at 50% of previous rate. Call powerhouse engineer if goal not achieved at maximum rate. [...] sedation scores after every rate change. Call powerhouse engineer if goal not achieved at maximum rate., [...] sedation scores after every rate change. Call powerhouse engineer if goal not achieved at maximum rate. [...] restart at 50% of previous rate. Call powerhouse engineer if goal not achieved at maximum rate. [...] restart at 50% of previous rate. Call powerhouse engineer if goal not achieved at maximum rate. [...] restart at 50% of previous rate. Call powerhouse engineer if goal not achieved at maximum rate. [...] restart at 50% of previous rate. Call powerhouse engineer if goal not achieved at maximum rate. [...] mg/patch) patch 2099 (Patch Removed - Provider: Igne Alvarez RN) 2099 (Patch Removed - Provider: [...] Discontinued, Routine 0833 (Given - Provider: Lizbet iDaz RN)2027 (Given - Provider: Inge Alvarez RN) [...] documented as of this encounter Care Teams Time Clock Mechanic Relationship Specialty Start Date End Date Cb [place] [address] [place] [address] PCP - General Family Medicine 11/13/18 03/29/20 documented as of this encounter
--- OUTSIDE RECORDS SUMMARY | 2024-07-24 00:50 | XMS_ITS | Encounter Summary ---
Author Organization [facility] [place] [address] Care Team Providers Care Director Of Vocational Training Name Role Phone Mary Alice Cage APRN Primary Care Provider Reason for Visit * Reason Onset Date Comments Medication Refill 08/20/2018 Encounter Details Date Type Department Care Team (Late st Contact Info) Description 08/20/2018 Refill [place] [address] Osmany Keller MD [facility] [place] [address] Chronic diarrhea Social History Tobacco Use Types [...] Diarrhea documented in this encounter Care Teams Director Of Vocational Training Relationship Specialty Start Date End Date Mary Alice Cage APRN PCP - General 10/12/11 11/12/18 documented as of this encounter
--- OUTSIDE RECORDS SUMMARY | 2024-07-24 00:50 | XMS_ITS | Encounter Summary ---
[place] [address] Care Team Providers Care Transportation Officer Name Role Phone Mary Alice Cage APRN Primary Care Provider [phone] Reason for Visit * Reason Onset Date Comments Prior Authorization 04/29/2018 Encounter Details Date Type Department Care Team (Late st Contact Info) Description 04/29/2018 Telephone [place] [address] Gardenia Bueno CMA GASTROENTEROLOGY DEPT Prior Authorization [...] Prior Authorization 4L Gastroenterology / [place] [address] ?? Subscriber Insurance: [employer] ?? Phone: Fax: ? Physician: Osmany Keller ? Return ?? Pharmacy: [facility] ? Medication Requested: Viberzi ?? Strength: 100 mg Frequency: BID ?? Disp.: 60 Refills: 5 ?? Currently taking: yes ?? Diagnosis for this medication: IBS-D ?? ICD-10 code: K58.0 ? Prior medications trialed in this patient: xifaxan,lomotil, imodium ? Medication: Outcome/Adverse Reactions: treatment failure ?? Decision: approved ? Tracking number/Case number/Reference number: [id number] ?? Effective date: ?? Start: End: 10/27/2018 documented in this encounter Plan of Treatment Not on file documented as of this encounter Visit Diagnoses Not on filedocumented in this encounter Care Teams Transportation Officer Relationship Specialty Start Date End Date Mary Alice Cage APRN PCP - General 10/12/11 11/12/18 documented as of this encounter
--- OUTSIDE RECORDS SUMMARY | 2024-07-24 00:50 | XMS_ITS | Encounter Summary ---
[place] [address] Care Team Providers Care Supervisor Crack Off Name Role Phone MoffatMary Alice davis Rajendra ROY Primary Care Provider [phone] Encounter Details Date Type Department Care Team (Late st Contact Info) Description 08/14/2018 Ref[place] [address] Puja Leon Social History Tobacco Use Types [...] RN - 08/14/2018 10:13 AM EST This service writer called the pharmacy to clarify what [...] 08/14/2018 9:59 AM EST Caller: mari in [place] Call for: nurse Reason for call: med viberzi written for a yrs worth but can only for 6 months worth Call back urgency: routine Ok to leave detailed message? yes Preferred method of communication: [phone] documented in this encounter Plan of Treatment Not on file documented as of this encounter Visit Diagnoses Not on filedocumented in this encounter Care Teams Supervisor Crack Off Relationship Specialty Start Date End Date Mary Alice Cage APRN PCP - General 10/12/11 11/12/18 documented as of this encounter
--- OUTSIDE RECORDS SUMMARY | 2024-07-24 00:50 | XMS_ITS | Encounter Summary ---
[place] [address] Care Team Providers Care Porter Used Car Lot Name Role Phone VillalbaMary Alice davis Rajendra ROY Primary Care Provider [phone] Reason for Visit * Reason Onset Date Comments Prior Authorization 01/09/2018 Encounter Details Date Type Department Care Team (Late st Contact Info) Description 01/09/2018 Telephone [place] [address] Gardenia Bueno CMA GASTROENTEROLOGY DEPT Prior Authorization [...] AM EDT Approved on appeal Ref # [id number] 01/09/18 - 08/11/18 Left message for patient advising her medication approved. * Telephone Encounter - Gardenia Bueno CMA - 01/09/2018 2:49 PM EDT Medication Prior Authorization 4L Gastroenterology / [place] [address] Subscriber Insurance: [employer] rx Fax: Physician: Osmany [...] Lot Relationship Specialty Start Date End Date Mary Alice Cage APRN PCP - General 10/12/11 11/12/18 documented as of this encounter
--- OUTSIDE RECORDS SUMMARY | 2024-07-24 00:50 | XMS_ITS | Encounter Summary ---
[place] [address] Care Team Providers Care Retail Sales Vitamin Consultant Name Role Phone Mary Alice Cage APRN Primary Care Provider [phone] Reason for Visit * Reason Onset Date Comments Medication Refill 08/13/2018 Encounter Details Date Type Department Care Team (Late st Contact Info) Description 08/13/2018 Ref[place] [address] Gardenia Bueno CMA GASTROENTEROLOGY DEPT Irritable bowel [...] syndrome documented in this encounter Care Teams Retail Sales Vitamin Consultant Relationship Specialty Start Date End Date Mary Alice Cage APRN PCP - General 10/12/11 11/12/18 documented as of this encounter
--- OUTSIDE RECORDS SUMMARY | 2024-07-24 00:50 | XMS_ITS | Encounter Summary ---
[place] [address] Care Team Providers Care Career Center Advisor Name Role Phone Mary Alice Cage APRN Primary Care Provider [phone] Reason for Visit * Reason Onset Date Comments Prior Authorization 10/14/2018 Encounter Details Date Type Department Care Team (Late st Contact Info) Description 10/14/2018 Telephone [place] [address] Amanda Sanchez CCMA Prior Authorization Social History [...] Prior Authorization 4L Gastroenterology / [place] [address] Subscriber [place] Phone: Fax: Physician: [...] on filedocumented in this encounter Care Teams Career Center Advisor Relationship Specialty Start Date End Date Mary Alice Cage APRN PCP - General 10/12/11 11/12/18 documented as of this encounter
--- OUTSIDE RECORDS SUMMARY | 2024-07-24 00:50 | XMS_ITS | Encounter Summary ---
Author Organization [facility] [address] Care Team Providers Care Medical Librarian Name Role Phone Mary Alice Cage APRN Primary Care Provider Reason for Visit * Reason Comments Medication Refill Encounter Details Date Type Department Care Team (Late st Contact Info) Description 08/09/2018 Refill [place] [address] Osmany Keller MD [facility] [place] [address] Irritable bowel syndrome with diarrhea Social History [...] syndrome documented in this encounter Care Teams Medical Librarian Relationship Specialty Start Date End Date Mary Alice Cage APRN PCP - General 10/12/11 11/12/18 documented as of this encounter
--- OUTSIDE RECORDS SUMMARY | 2024-07-24 00:50 | XMS_ITS | Encounter Summary ---
Author Organization [facility] [address] Care Team Providers Care Attending Physician Name Role Phone Mary Alice Cage APRN Primary Care Provider Reason for Visit * Reason Onset Date Comments Medication Refill 01/02/2018 Encounter Details Date Type Department Care Team (Late st Contact Info) Description 01/02/2018 Refill [place] [address] Osmany Keller MD [facility] [place] [address] Gastroesophageal reflux disease, esophagitis presence not specified [...] specified documented in this encounter Care Teams Attending Physician Relationship Specialty Start Date End Date Mary Alice Cage APRN PCP - General 10/12/11 11/12/18 documented as of this encounter
--- OUTSIDE RECORDS SUMMARY | 2024-07-24 00:50 | XMS_ITS | Encounter Summary ---
[place] [address] Care Team Providers Care Head Pastry Chef Name Role Phone TiogaMary Alice davis Rajendra ROY Primary Care Provider [phone] Encounter Details Date Type Department Care Team (Late st Contact Info) Description 08/13/2018 Telephone [place] [address] Jessica Tejeda Social History Tobacco Use Types [...] filedocumented in this encounter Care Teams Head Pastry Chef Relationship Specialty Start Date End Date Mary Alice Cage APRN PCP - General 10/12/11 11/12/18 documented as of this encounter
--- OUTSIDE RECORDS SUMMARY | 2024-07-24 00:50 | XMS_ITS | Encounter Summary ---
Author Organization [facility] [place] [address] Care Team Providers Care Chemists Name Role Phone Cb Florence Primary Care Provider [phone] Encounter Details Date Type Department Care Team (Late st Contact Info) Description 11/13/2018 7:55 PM EDT Ancillary Procedure Radiology [facility] [place] [address] Andriy Valdez Jr., MD [facility] [place] [address] Social History Tobacco Use Types Packs/Day Years [...] CT Chest (11/13/2018 7:46 PM EDT) Narrative [facility] - 11/13/2018 7:46 PM EDT This exam is auto-finalizing. It's purpose is for storage only. Andriy Valdez Jr., MD IMG FILM LIBRARY ORDERABLES [place], [place] documented in this encounter Visit Diagnoses Not on filedocumented in this encounter Care Teams Chemists Relationship Specialty Start Date End Date Cb Florence PA [address] [place] [address] PCP - General Family Medicine 11/13/18 03/29/20 documented as of this encounter
--- OUTSIDE RECORDS SUMMARY | 2024-07-24 00:50 | XMS_ITS | Encounter Summary ---
Author Organization [facility] [place] [address] Care Team Providers Care Life Sciences Instructor Name Role Phone ReaganMary Alice davis Rajendra ROY Primary Care Provider [phone] Encounter Details Date Type Department Care Team (Late st Contact Info) Description 08/20/2018 Telephone [place] [phone] Puja Leon Social History Tobacco Use Types [...] 08/20/2018 9:17 AM EST Caller: trinity from [facility] in [place] Call for: nurse Reason for call: controlled [...] on filedocumented in this encounter Care Teams Life Sciences Instructor Relationship Specialty Start Date End Date Mary Alice Cage APRN PCP - General 10/12/11 11/12/18 documented as of this encounter
--- OUTSIDE RECORDS SUMMARY | 2024-07-24 00:50 | XMS_ITS | Encounter Summary ---
[place] [address] Care Team Providers Care Public Welfare Director Name Role Phone SussexMary Alice davis Rajendra ROY Primary Care Provider [phone] Encounter Details Date Type Department Care Team (Late st Contact Info) Description 08/15/2018 Telephone [place] [phone] Puja Leon Social History Tobacco Use Types [...] 10:49 AM EST Caller: [facility] Call for:nurse Reason for call: wanted [...] on filedocumented in this encounter Care Teams Public Welfare Director Relationship Specialty Start Date End Date Mary Alice Cage APRN PCP - General 10/12/11 11/12/18 documented as of this encounter
--- OUTSIDE RECORDS SUMMARY | 2024-07-24 00:50 | XMS_ITS | Encounter Summary ---
Author Organization [facility] [place] [address] Care Team Providers Care Mine Car Repairer Name Role Phone EdgarMary Alice davis Rajendra ROY Primary Care Provider Encounter Details Date Type Department Care Team (Late st Contact Info) Description 08/27/2018 10:00 AM EST Office [place] [address] Osmany Keller MD [facility] [place] [address] Irritable bowel syndrome, unspecified type; Esophageal dysmotility [...] HISTORY 1. Emergency hernia repair May 2011, [place]. 2. Cholecystectomy 11/24/12. 3. Cervical spine fusion surgery August 2013. 4. Lumbar discectomy 08/2014. 5. Left hand surgery April 2017, [facility] - tendon release. RECENT TESTING 1. Colonoscopy, [...] EGD 10/26/15: normal; Z-line at 41. 9. Fodma-ieqam-ywnx wireless pH capsule 10/26/15 to 10/28/15 off [...] 18 of 25 minutes spent in direct yeak-nl-xgkg counseling and the rest in taking history and performing exam. PLAN: Osmany Keller MD Section of Gastroenterology and Hepatology documented in this encounter Plan of Treatment Not on file documented as of this encounter Visit Diagnoses Diagnosis Irritable bowel syndrome, unspecified type Esophageal dysmotility Dyskinesia of esophagus documented in this encounter Care Teams Mine Car Repairer Relationship Specialty Start Date End Date Mary Alice Cage APRN PCP - General 10/12/11 11/12/18 documented as of this encounter
--- OUTSIDE RECORDS SUMMARY | 2024-07-24 00:50 | XMS_ITS | Encounter Summary ---
Author Organization [facility] [address] Care Team Providers Care Instrument Repair Technician Name Role Phone Mary Alice Cage APRN Primary Care Provider Reason for Visit * Reason Onset Date Comments Medication Refill 12/09/2017 Encounter Details Date Type Department Care Team (Late st Contact Info) Description 12/09/2017 Refill [place] [address] Osmany Keller MD [facility] [place] [address] Social History Tobacco Use Types Packs/Day Years [...] on filedocumented in this encounter Care Teams Instrument Repair Technician Relationship Specialty Start Date End Date Mary Alice Cage APRN PCP - General 10/12/11 11/12/18 documented as of this encounter
--- OUTSIDE RECORDS SUMMARY | 2024-07-24 00:50 | XMS_ITS | Encounter Summary ---
[place] [address] Care Team Providers Care Time Buyer Name Role Phone Mary Alice Cage APRN Primary Care Provider [phone] Reason for Referral * Diagnostic Test (Routine) - Closed Specialty Diagnoses / Procedures Referred By Chava alejo Referred To Contact Radiology Diagnoses Type 2 diabetes mellitus with complication, with long-term current use of insulin Procedures NM Gastric Emptying Scan Mary Alice Scanlon MD [facility] [place] [address] [place] [address] Referral ID Status Reason Start Date Expiration Date V isits Requested Visits Authorized [id number] Closed Specialty Service Requested 10/08/2018 10/08/2019 1 1 Reason for Visit * Reason Comments Follow-up Encounter Details Date Type Department Care Team (Late st Contact Info) Description 10/08/2018 10:00 AM EST Office Visit [place] [phone] Osmany Keller MD [facility] [place] [address] Type 2 diabetes mellitus with [...] EGD 10/26/15: normal; Z-line at 41. 9. Ehixz-chunc-lemc wireless pH capsule 10/26/15 to 10/28/15 off [...] tablet by mouth 2 times daily. 60 [id number] ??? baclofen (LIORESAL) 10 mg Tablet Take [...] [facility] [place].(Non-Drug; Combo Route) route nightly. ??? [...] Inhalational Spacing Device Spcr 2 puffs by [facility].(Non-Drug; Combo Route) route daily. ??? [...] HISTORY 1. Emergency hernia repair May 2011, [place]. 2. Cholecystectomy 11/24/12. 3. Cervical spine fusion surgery August 2013. 4. Lumbar discectomy 08/2014. 5. Left hand [facility] April [place], [facility] - tendon release. ?? FAMILY HISTORY Noncontributory. [...] 15 of 25 minutes spent in direct sfli-zm-rpsv counseling and the rest in taking history [...] Electronically signed by: Anatoliy Flores [facility] ([phone]), at 01/01/2019 5:35 PM Narrative 01/01/2019 5:35 [...] Electronically signed by: Anatoliy Flores [facility]([phone]), at 01/01/2019 5:35 PM Osmany Overton MD IMG NM ORDERABLE S documented in this encounter Visit Diagnoses Diagnosis Type 2 diabetes mellitus with complication, with long-term current use of insulin Type 2 diabetes mellitus with complication, with long-term current use of insulin documented in this encounter Care Teams Time Buyer Relationship Specialty Start Date End Date Mary Alice Cage APRN PCP - General 10/12/11 11/12/18 documented as of this encounter
--- OUTSIDE RECORDS SUMMARY | 2024-07-24 00:50 | XMS_ITS | Encounter Summary ---
[place] [address] Care Team Providers Care Cell Installer Name Role Phone NilesMary Alice Rajendra ROY Primary Care Provider [phone] Reason for Visit * Reason Onset Date [...] Contact Info) Description 11/07/2017 Telephone [place] [phone] Osmany Keller MD [facility] [place] [address] Post Procedure Call (Patient called with concern [...] on filedocumented in this encounter Care Teams Cell Installer Relationship Specialty Start Date End Date Mary Alice Cage APRN PCP - General 10/12/11 11/12/18 documented as of this encounter
--- OUTSIDE RECORDS SUMMARY | 2024-07-24 00:50 | XMS_ITS | Encounter Summary ---
Author Organization [facility] [place] [address] Care Team Providers Care Ceramic Coater Machine Name Role Phone Cb Florence Primary Care Provider [phone] Encounter Details Date Type Department Care Team (Late st Contact Info) Description 11/13/2018 7:50 PM EDT Ancillary Procedure Radiology Library at [facility] [place] [address] Andriy Valdez Jr., MD [facility] [place] [address] Social History Tobacco Use Types Packs/Day Years [...] CT Head (11/13/2018 7:45 PM EDT) Narrative [facility] - 11/13/2018 7:45 PM EDT This exam is auto-finalizing. It's purpose is for storage only. Andriy Valdez Jr., MD IMG FILM LIBRARY ORDERABLES CARRI [place], [place] documented in this encounter Visit Diagnoses Not on filedocumented in this encounter Care Teams Ceramic Coater Machine Relationship Specialty Start Date End Date Cb Florence PA [address] [place] [address] PCP - General Family Medicine 11/13/18 03/29/20 documented as of this encounter
--- OUTSIDE RECORDS SUMMARY | 2024-07-24 00:50 | XMS_ITS | Encounter Summary ---
[place] [address] Care Team Providers Care Plumber Name Role Phone LipscombMary Alice davis Rajendra ROY Primary Care Provider [phone] Encounter Details Date Type Department Care Team (Late st Contact Info) Description 01/17/2018 Telephone [place] [address] Stef Paul, RN Social History Tobacco Use [...] the person that place the PA. This medical writer resubmitted PA with above information in hopes Dexilant will be approved on re review. Returned call to patient, was unable to reach patient by phone, left message on voicemail with above information. documented in this encounter Plan of Treatment Not on file documented as of this encounter Visit Diagnoses Not on filedocumented in this encounter Care Teams Plumber Relationship Specialty Start Date End Date Mary Alice Cage APRN PCP - General 10/12/11 11/12/18 documented as of this encounter
--- OUTSIDE RECORDS SUMMARY | 2024-07-24 00:51 | XMS_ITS | Encounter Summary ---
[place] [address] Care Team Providers Care Senior Back End Java Developer Name Role Phone MeagherMary Alice davis MANUELA Primary Care Provider [phone] Encounter Details Date Type Department Care Team (Late st Contact Info) Description 03/05/2017 Telephone Sleep Center at [address] [address] Shobha Duke APRN [facility] [place] [address] Social History Tobacco Use Types Packs/Day Years [...] to call us or else email at [facility]. MANUELA FRANK Sleep Medicine documented in this encounter Plan of Treatment Not on file documented as of this encounter Visit Diagnoses Not on filedocumented in this encounter Care Teams Senior Back End Java Developer Relationship Specialty Start Date End Date Mary Alice Cage APRN PCP - General 10/12/11 11/12/18 documented as of this encounter
--- OUTSIDE RECORDS SUMMARY | 2024-07-24 00:51 | XMS_ITS | Encounter Summary ---
Author Organization [facility] Address [facility] [place] [address] Care Team Providers Care Metal Lather Name Role Phone Mary Alice Cage Rajendra ROY Primary Care Provider [phone] Reason for Visit * Consultation (Routine) - Closed Specialty Diagnoses / Procedures Referred By Chava alejo Referred To Contact Sleep Center Diagnoses ELO (obstructive sleep apnea) Procedures PRG POLYLSOM 6+ YRS SLEEP W CPAP W 4+ ADDL BELEM Annie Pacheco MD [facility] [place] [address] [facility] [address] [place] [address] Referral ID Status Reason Start Date Expiration Date V isits Requested Visits Authorized [id number] Closed Test Only 05/03/2016 05/03/2017 1 1 Encounter Details Date Type Department Care Team (Late st Contact Info) Description 10/31/2016 8:30 PM EDT Procedure visit Sleep Center at [address] [place] [address] Bambi [place] MD [facility] [place] [address] ELO (obstructive sleep apnea); Sleep [...] a mild degree (AHI of 7) noted. [facility] AHI of 0.5 which includes only apneas [...] for CBT-I if the patient is agreeable. [facility] Sleep Disorders Center REPORT of Diagnostic Polysomnography [...] an arousal or with a 3%-4% desaturation. [facility] Hypopneas not included. Periodic Breathing Total Sleep [...] sleep documented in this encounter Care Teams Metal Lather Relationship Specialty Start Date End Date Mary Alice Cage APRN PCP - General 10/12/11 11/12/18 documented as of this encounter
--- OUTSIDE RECORDS SUMMARY | 2024-07-24 00:51 | XMS_ITS | Encounter Summary ---
Author Organization [facility] [place] [address] Care Team Providers Care Cold Patcher Name Role Phone BenningtonMary Alice davis Rajendra ROY Primary Care Provider Reason for Visit * Reason Comments Follow-up Encounter Details Date Type Department Care Team (Late st Contact Info) Description 10/03/2016 3:30 PM EST Office [place] [address] Osmany Holloway MD [facility] [place] [address] COPD, moderate Social History Tobacco Use Types [...] 60 tablet 5 ??? Miscellaneous Medical Supply [facility] Face mask for nocturnal O2 1 each PRN ??? simvastatin (ZOCOR) 20 mg Tablet Take 20 mg by mouth nightly. ??? OXYGEN-AIR DELIVERY SYSTEMS ([facility] OXYGEN CONCENTRATOR [facility]) by [facility].(Non-Drug; [...] classified documented in this encounter Care Teams Cold Patcher Relationship Specialty Start Date End Date Mary Alice Cage APRN PCP - General 10/12/11 11/12/18 documented as of this encounter
--- OUTSIDE RECORDS SUMMARY | 2024-07-24 00:51 | XMS_ITS | Encounter Summary ---
Author Organization [facility] [place] [address] Care Team Providers Care Retail Asset Protection Specialist Name Role Phone Mary Alice Cage MANUELA Primary Care Provider [phone] Encounter Details Date Type Department Care Team (Latest Contact Info) Description 10/02/2016 11:45 AM EST - 10/02/2016 2:52 PM EST Hospital Encounter [place] [address] Justin Starkey MD [facility] [place] [address] Discharge Disposition: Home Social History Tobacco Use [...] occurs please contact your M.D. Please call [phone] before 5 pm with problems, questions or concerns. After 5pm call [phone] and ask to speak with the tank charger outside solar sales consultant. Discharge instructions reviewed with patient who expresses understanding. * Patient Instructions* Justin Starkey MD - 10/02/2016 1:24 PM EST Please see Recommendations in the Provation procedure report which is documented in the procedural note in [facility]. * Attachments The following attachments cannot be sent through Care Everywhere. * EGD (UPPER ENDOSCOPY): POST-OP (NIUEAN) documented in this encounter Medications at Time of Discharge Medication Sig Dispensed Refills Start Date End Date baclofen (LIORESAL) 10 mg Tablet Take 10 mg by mouth 3 times daily. Takes 20mg at night 06/23/2016 albuterol (PROVENTIL) 2.5 mg /3 mL (0.083 %) Solution for Nebulization Take 2.5 mg by nebulization every 4 hours as needed for Wheezing. chlorpheniramine (CHLOR-TRIMETON) 4 mg Tablet Take 4 mg by mouth every 6 hours as needed for Allergies. albuterol (PROVENTIL HFA;VENTOLIN HFA) 90 mcg/actuation HFA Aerosol Inhaler Inhale 2 puffs into the lungs every 4 hours as needed. Use with spacer promethazine (PHENERGAN) 25 mg tablet Take 25 mg by mouth every 6 hours as needed. SYMBICORT 160-4.5 mcg/actuation HFA Aerosol Inhaler Inhale 2 puffs into the lungs 2 times daily. 05/02/2016 OXYGEN-AIR DELIVERY SYSTEMS ( CLASSIC OXYGEN CONCENTRATOR MISC) 3 L by [facility].(Non-Drug; Combo Route) route nightly. diphenoxylate-atropin e (LOMOTIL) 2.5-0.025 mg Tablet Take 1 tablet by mouth 4 times daily. DO NOT restarted this unless you are having diarrhea. 120 tablet 7 06/11/2014 Inhalational Spacing Device Spcr 2 puffs by [facility].(Non-Drug; Combo Route) route daily. cholecalciferol, Vitamin D3, 400 unit tablet Take 400 Units by mouth daily. MULTIVITAMIN ORAL Take 2 tablets by mouth daily. ASCORBATE CALCIUM (VITAMIN C ORAL) Take 1 tablet by mouth daily. loratadine (CLARITIN) 10 mg tabletIndications:Mul tiple nodules of lung Take 10 mg by mouth daily. dexlansoprazole (DEXILANT) 60 mg Cap, Delayed Rel., MultiphasicIndication s:Gastroesophageal reflux disease, esophagitis presence not specified Take 1 capsule by mouth daily. 30 capsule 11 09/13/2016 01/02/2018 hydroCHLOROthiazide (HYDRODIURIL) 25 mg TabletIndications:Ess ential hypertension Take 1 tablet by mouth daily. 30 tablet 12 07/09/2016 11/25/2018 gabapentin (NEURONTIN) 300 mg Capsule Take 300 [...] TWICE DAILY 1 each 3 11/07/2013 07/14/2021 BUPROPION HCL (WELLBUTRIN ORAL) Take 200 mg by mouth 2 times daily. 11/25/2018 citalopram (CELEXA) 40 mg tablet Take 1 tablet by mouth daily. 90 tablet 3 08/19/2012 07/14/2021 glycopyrrolate (ROBINUL) 1 mg Tablet Take 1 tablet by mouth 2 times daily. 60 tablet 11 09/13/2016 09/13/2017 eluxadoline 100 mg Tablet Take 100 mg by mouth 2 times daily. 60 tablet 5 09/13/2016 10/03/2016 dicyclomine (BENTYL) 10 mg CapsuleIndications:Ch ronic abdominal pain TAKE ONE CAPSULE BY MOUTH 4 TIMES DAILY 360 capsule 3 08/14/2016 12/20/2016 sulfamethoxazole-trim ethoprim (BACTRIM DS) 800-160 mg TabletIndications:TAG CLERK D, moderate TAKE ONE TABLET BY MOUTH TWICE DAILY FOR 10 DAYS 20 tablet 07/09/2016 10/03/2016 meloxicam (MOBIC) 7.5 mg Tablet 2 times daily. 06/23/2016 11/14/2018 lisinopril (PRINIVIL;ZESTRIL) 10 mg TabletIndications:Ess ential hypertension Take 2 tablets by mouth daily. 60 tablet 11 07/09/2016 12/20/2016 rOPINIRole (REQUIP) 2 mg Tablet Take 2 mg by mouth nightly. Reported on 12/20/2016 05/10/2016 11/14/2018 eluxadoline 100 mg Tablet Take 100 mg by mouth 2 times daily. 60 tablet 5 01/24/2016 01/23/2017 Miscellaneous Medical Supply MiscIndications:PAH (pulmonary artery hypertension) Face mask for nocturnal O2 1 each PRN 08/29/2015 10/24/2016 fluconazole (DIFLUCAN) 100 mg TabletIndications:Thr ush Take 1 tablet by mouth daily. 5 tablet 3 02/21/2015 12/20/2016 BUDESONIDE/FORMOTEROL FUMARATE (SYMBICORT INHL) Inhale 2 puffs into the lungs every 12 hours. 09/13/2017 ipratropium (ATROVENT) 0.06 % nasal spray USE TWO SPRAYS BY NASAL ROUTE 4 TIMES DAILY 15 mL 2 10/21/2013 07/14/2021 VITAMIN B COMPLEX ORAL Take 1 tablet by mouth. 09/13/2017 guaiFENesin (ROBITUSSIN) 100 mg/5 mL syrupIndications:Mult iple nodules of lung Take 200 mg by mouth 3 times daily as needed. 12/20/2016 documented as of this encounter H&P Notes [...] (10/02/2016 12:56 PM EST) UPPER GI ENDOSCOPY [facility] Endoscopy ___ Procedure Date: 10/02/2016 12:56 PM ? Patient Name: Poppy Mclaughlin ? Date of : 1960 ? Age: 56 ? Order #: [id number] ? Instrument Name: [id number] ? ___ Procedure: ? Upper GI endoscopy [...] Procedure Code(s): ?? --- Professional --- ? 57983, Esophagogastroduode noscopy, ? flexible, transoral; with directed ? submucosal injection(s), any substance CPT copyright 2016 [employer]. All rights reserved. The codes documented in this report are preliminary and upon electronics mechanic apprentice review may be revised to meet current [...] MD) documented in this encounter Care Teams Retail Asset Protection Specialist Relationship Specialty Start Date End Date Mary Alice Cage APRN PCP - General 10/12/11 11/12/18 documented as of this encounter
--- OUTSIDE RECORDS SUMMARY | 2024-07-24 00:51 | XMS_ITS | Encounter Summary ---
Author Organization [facility] [place] [address] Care Team Providers Care Dry Color Tester Name Role Phone Mary Alice Cage APRN Primary Care Provider Reason for Visit * Reason Comments Medication Refill Encounter Details Date Type Department Care Team (Late st Contact Info) Description 06/15/2016 Refill [place] [address] Justni Starkey MD [facility] DR GASTROENTEROLOGY [place] [address] Chronic abdominal pain Social History Tobacco Use [...] site documented in this encounter Care Teams Dry Color Tester Relationship Specialty Start Date End Date Mary Alice Cage APRN PCP - General 10/12/11 11/12/18 documented as of this encounter
--- OUTSIDE RECORDS SUMMARY | 2024-07-24 00:51 | XMS_ITS | Encounter Summary ---
[place] [address] Care Team Providers Care Psychiatry Resident Name Role Phone MchenryMary Alice davis Rajendra ROY Primary Care Provider [phone] Reason for Visit * Reason Onset Date Comments Prior Authorization 09/19/2016 Encounter Details Date Type Department Care Team (Late st Contact Info) Description 09/19/2016 Telephone [place] [address] Gardenia Bueno CMA GASTROENTEROLOGY DEPT Prior Authorization [...] before pursuing the prior authorization. The pharmacy tech customer service agreed to this plan documented in this encounter Plan of Treatment Not on file documented as of this encounter Visit Diagnoses Not on filedocumented in this encounter Care Teams Psychiatry Resident Relationship Specialty Start Date End Date Mary Alice Cage APRN PCP - General 10/12/11 11/12/18 documented as of this encounter
--- OUTSIDE RECORDS SUMMARY | 2024-07-24 00:51 | XMS_ITS | Encounter Summary ---
Author Organization [facility] [place] [address] Care Team Providers Care Supervisor In Charge Name Role Phone Mary Alice Cage MANUELA Primary Care Provider [phone] Encounter Details Date Type Department Care Team (Late st Contact Info) Description 11/05/2017 1:46 PM EDT Anesthesia [place] [address] Tara Madrid MD [facility] DR [place] [address] DelilahKimberly Means CRNA [facility] [place] [address] Anesthesia Record Procedure Summary Procedure Name Responsible [...] cephalic vein (lateral side of arm), right; tqqh-fyj-wqdlca catheter system; 20 gauge; Judi Padron RN; [...] Madrid MD - 11/05/2017 2:59 PM EDT [facility] Department of Anesthesiology Post-procedure Note Patient: Ppopy Mclaughlin Procedure Summary Date Anesthesia Start Anesthesia Stop Room / Location 11/05/17 1346 1422 [facility] ENDO 5 / [facility] ENDOSCOPY Procedure Diagnosis Surgeon Responsible Provider EGD, W DIRECTED SUBMUCOSAL INJECTION(S) (NUTCRACKER ESOPHAGUS -BOTOX INJECTION; (consult)) Osmany Keller MD Procopio, Marcia A, MD All Anesthesia Providers: Anesthesiologist: Tara Madrid MD DIESEL LOCOMOTIVE ENGINEER: Kimberly Mazariegos CRNA Most Recent Vitals: 11/05/17 1450 BP: 162/85 Pulse: Resp: 16 SpO2: Pain 0 (11/05/17 1450) Patient Location: PACU/[facility] Level of Consciousness: Awake and Alert Pain [...] risks discussed with patient. Plan discussed with DIESEL LOCOMOTIVE ENGINEER. PAT Staff Note documented in this encounter [...] mL/hr documented in this encounter Care Teams Supervisor In Charge Relationship Specialty Start Date End Date Mary Alice Cage APRN PCP - General 10/12/11 11/12/18 documented as of this encounter
--- OUTSIDE RECORDS SUMMARY | 2024-07-24 00:51 | XMS_ITS | Encounter Summary ---
Author Organization [facility] [place] [address] Care Team Providers Care Revenue Stamper Name Role Phone St. LawrenceMary Alice davis Rajendra ROY Primary Care Provider [phone] Reason for Visit * Reason Comments Follow-up Encounter Details Date Type Department Care Team (Latest Contact Info) Description 05/21/2017 10:00 AM EDT Office [place] [address] Justin Starkey MD [facility] [place] [address] Gastroesophageal reflux disease, esophagitis presence not specified; [...] HISTORY 1. Emergency hernia repair May 2011, [place]. 2. Cholecystectomy 11/24/12. 3. Cervical spine fusion surgery August 2013. 4. Lumbar discectomy 08/2014. 5. Left hand surgery April 2017, . [facility]. HABITS Positive tobacco. No alcohol for kmhn-mkv-k-half years. FAMILY HISTORY Noncontributory. No first-degree family [...] EGD 10/26/15: normal; Z-line at 41. 9. Fgaks-wrwzs-qqkz wireless pH capsule 10/26/15 to 10/28/15 off [...] patient is aware that I am leaving [facility]. She would like to follow up with Dr. Raimrez she initially saw at [facility] and who then referred her to Ms. O???Sarah and then to me. TIME SPENT WITH PATIENT Total Minutes: 40 Minutes of Vtkn-ru-Nylo Counseling: Greater than 35 minutes were spent in oljm-gz-vgve counseling and coordination of care. Justin Starkey, PhD, MD package drier, [facility] Chief, Section of Gastroenterology and Hepatology [facility] [place] [address] V: [phone] F: [phone] MICKY/mian CC/EC: PCP - staff msg copy 05/24/17 [facility] Auto Carrier Driver - staff msg copy 05/24/17 documented in this encounter Plan of Treatment Not on file documented as of this encounter Visit Diagnoses Diagnosis Gastroesophageal reflux disease, esophagitis presence not specified Small intestinal bacterial overgrowth Irritable bowel syndrome with diarrhea Irritable bowel syndrome Nutcracker esophagus Dyskinesia of esophagus documented in this encounter Care Teams Revenue Stamper Relationship Specialty Start Date End Date Mary Alice Cage APRN PCP - General 10/12/11 11/12/18 documented as of this encounter
--- OUTSIDE RECORDS SUMMARY | 2024-07-24 00:51 | XMS_ITS | Encounter Summary ---
Author [facility] [address] Care Team Providers Care Scale Model Maker Name Role Phone Mary Alice Cage APRN Primary Care Provider [phone] Reason for Referral * Psychiatric (Routine) - Specialty Diagnoses / Procedures Referred By Chava alejo Referred To Contact Psychiatry Diagnoses Insomnia, unspecified type Sleep difficulties Shobha Duke APRN [facility] DR SLEEP [place] [address] Referral ID Status Reason Start Date Expiration Date V isits Requested Visits Authorized [id number] Consult, Test & Treat 12/31/2016 06/29/2017 1 1 Encounter Details Date Type Department Care Team (Late st Contact Info) Description 12/28/2016 Telephone Sleep Center at [facility] [address] [place] [address] Jaclyn Arguello Social History Tobacco Use Types [...] unspecified documented in this encounter Care Teams Scale Model Maker Relationship Specialty Start Date End Date Mary Alice Cage APRN PCP - General 10/12/11 11/12/18 documented as of this encounter
--- OUTSIDE RECORDS SUMMARY | 2024-07-24 00:51 | XMS_ITS | Encounter Summary ---
Author Organization [facility] Address [facility] [place] [address] Care Team Providers Care Drop Hammer Pile Driver Operator Name Role Phone CraigheadMary Alice davis MANUELA Primary Care Provider [phone] Encounter Details Date Type Department Care Team (Late st Contact Info) Description 09/13/2017 4:00 PM EST Office [place] [address] Osmany Holloway MD [facility] [place] [address] Influenza vaccination contraindicated; COPD, moderate Social History [...] by mouth 2 times daily. 60 ??? dexlansoprazole (DEXILANT) 60 mg Cap, Delayed [...] classified documented in this encounter Care Teams Drop Hammer Pile Driver Operator Relationship Specialty Start Date End Date Mary Alice Cage APRN PCP - General 10/12/11 11/12/18 documented as of this encounter
--- OUTSIDE RECORDS SUMMARY | 2024-07-24 00:51 | XMS_ITS | Encounter Summary ---
[place] [address] Care Team Providers Care Fire Extinguisher Charger Name Role Phone TregoMary Alice davis Rajendra ROY Primary Care Provider [phone] Reason for Visit * Reason Onset Date Comments Prior Authorization 10/15/2016 Denial Encounter Details Date Type Department Care Team (Late st Contact Info) Description 10/15/2016 Telephone [place] [phone] Gardenia Bueno CMA GASTROENTEROLOGY DEPT Prior Authorization [...] on filedocumented in this encounter Care Teams Fire Extinguisher Charger Relationship Specialty Start Date End Date Mary Alice Cage APRN PCP - General 10/12/11 11/12/18 documented as of this encounter
--- OUTSIDE RECORDS SUMMARY | 2024-07-24 00:51 | XMS_ITS | Encounter Summary ---
[place] [address] Care Team Providers Care Beverage Inspection Machine Tender Name Role Phone CraigheadMary Alice davis Rajendra ROY Primary Care Provider [phone] Reason for Referral * Consultation (Routine) - Closed Specialty Diagnoses / Procedures Referred By Chava alejo Referred To Contact Gastroenterology Diagnoses Gastroesophageal reflux disease, esophagitis presence not specified Justin Starkey MD [facility] [place] [address] [facility] [address] [place] [phone] Referral ID Status Reason Start Date Expiration Date V isits Requested Visits Authorized [id number] Closed Consult, Test & Treat 09/13/2016 09/13/2017 1 1 Reason for Visit * Reason Comments Follow-up Encounter Details Date Type Department Care Team (Latest Contact Info) Description 09/13/2016 10:00 AM EST Office [place] [address] Justin Starkey MD [facility] [place] [address] Gastroesophageal reflux disease, esophagitis presence [...] SR None PCP: Mary Alice Cage APRN CONSUMER MARKETING SPECIALIST: None REASON FOR VISIT This is a [...] instituted a trial of eluxadoline for her MOV-kqfj-htfpuvlw symptoms. She was going to call one [...] HISTORY 1. Emergency hernia repair May 2011, [place]. 2. Cholecystectomy 11/24/12. 3. Cervical spine fusion surgery August 2013. 4. Lumbar discectomy 08/2014. HABITS Positive tobacco. No alcohol for jdag-fav-r-half years. FAMILY HISTORY Noncontributory. SOCIAL HISTORY for [...] EGD 10/26/15: normal; Z-line at 41. 9. Nqvpp-hkgrl-onmp wireless pH capsule 10/26/15 to 10/28/15 off [...] WITH PATIENT Total Minutes: 40 Minutes of Kozq-zg-Akgh Counseling: Greater than 35 minutes were spent in erpg-ka-tihc counseling and coordination of care. Justin Starkey, PhD, MD solid center winder, [facility], [facility] [employer] [facility] Chief, Section of Gastroenterology and Hepatology [facility] [place] [address] V: [phone] F: [phone] BEL/mian CC/EC: PCP - staff msg copy 09/20/16 [facility] GI Grants Director - staff msg copy 09/20/16 documented in [...] type documented in this encounter Care Teams Beverage Inspection Machine Tender Relationship Specialty Start Date End Date Mary Alice Cage APRN PCP - General 10/12/11 11/12/18 documented as of this encounter
--- OUTSIDE RECORDS SUMMARY | 2024-07-24 00:51 | XMS_ITS | Encounter Summary ---
[place] [address] Care Team Providers Care Diesel Engine Mechanic Name Role Phone Niles Mary Alice Drew APRN Primary Care Provider Encounter Details Date Type Department Care Team (Latest Contact Info) Description 07/09/2016 10:59 AM EST - 07/09/2016 11:[address] [facility] Hospital [place] [address] PAH (pulmonary artery hypertension); COPD, moderate Discharge [...] CLASSIC OXYGEN CONCENTRATOR MISC) 3 L by [facility]Non-Drug; Combo Route) route nightly. diphenoxylate-atropin e (LOMOTIL) 2.5-0.025 mg Tablet Take 1 tablet by mouth 4 times daily. DO NOT restarted this unless you are having diarrhea. 120 tablet 7 06/11/2014 Inhalational Spacing Device Spcr 2 puffs by [facility].(Non-Drug; Combo Route) route daily. cholecalciferol, Vitamin D3, 400 unit tablet Take 400 Units by mouth daily. MULTIVITAMIN ORAL Take 2 tablets by mouth daily. ASCORBATE CALCIUM (VITAMIN C ORAL) Take 1 tablet by mouth daily. loratadine (CLARITIN) 10 mg tabletIndications:Mul tiple nodules of lung Take 10 mg by mouth daily. hydroCHLOROthiazide (HYDRODIURIL) 25 mg TabletIndications:Ess ential hypertension [...] mouth daily. 90 tablet 3 08/19/2012 07/14/2021 sulfamethoxazole-trim ethoprim (BACTRIM DS) 800-160 mg TabletIndications:DRY WALL SPRAYER D, moderate TAKE ONE TABLET BY MOUTH TWICE DAILY FOR 10 DAYS 20 tablet 07/09/2016 10/03/2016 meloxicam (MOBIC) 7.5 mg Tablet 2 times daily. 06/23/2016 11/14/2018 lisinopril (PRINIVIL;ZESTRIL) 10 mg TabletIndications:Ess ential hypertension Take 2 tablets by mouth daily. 60 tablet 11 07/09/2016 12/20/2016 dicyclomine (BENTYL) 10 mg CapsuleIndications:Ch ronic abdominal [...] needed. 12/20/2016 documented as of this encounter Procedure Notes [...] The low- normal FEV1/FVC and disproportionate reductionin USE31-18 could represent a co- existent obstructive defect. [...] ??The low-normal FEV1/FVC and disproportionate reduction in FHF39-67 could represent a co-existent obstructive defect. ??The decreased diffusing capacity is a non-specific finding consistent with a variety of cardiopulmonary disorders (e.g. Emphysema) as well as anemia. Osmany Overton MD PFT ORDERABLES documented in this encounter Visit Diagnoses Diagnosis PAH (pulmonary artery hypertension) Other chronic pulmonary heart diseases COPD, moderate Chronic airway obstruction, not elsewhere classified documented in this encounter Care Teams Diesel Engine Mechanic Relationship Specialty Start Date End Date Mary Alice Cage APRN PCP - General 10/12/11 11/12/18 documented as of this encounter
--- OUTSIDE RECORDS SUMMARY | 2024-07-24 00:51 | XMS_ITS | Encounter Summary ---
[place] [address] Care Team Providers Care Legal Counsel Name Role Phone EscambiaMary Alice davis Rajendra ROY Primary Care Provider [phone] Reason for Visit * Reason Onset Date Comments Prior Authorization 09/20/2016 Encounter Details Date Type Department Care Team (Late st Contact Info) Description 09/20/2016 Tele[place] [address] Gardenia Bueno CMA GASTROENTEROLOGY DEPT Prior Authorization [...] filedocumented in this encounter Care Teams Legal Counsel Relationship Specialty Start Date End Date Mary Alice Cage APRN PCP - General 10/12/11 11/12/18 documented as of this encounter
--- OUTSIDE RECORDS SUMMARY | 2024-07-24 00:51 | XMS_ITS | Encounter Summary ---
Author Organization [facility] [place] [address] Care Team Providers Care Research Scientist Name Role Phone Mary Alice Cage MANUELA Primary Care Provider [phone] Encounter Details Date Type Department Care Team (Late st Contact Info) Description 11/05/2017 12:30 PM EDT - 11/05/2017 1:00 PM EDT [place] [address] Machelle Keller MD [facility] [place] [address] EGD, W DIRECTED SUBMUCOSAL INJECTION(S) (WRVU 2.39) [...] better as expected. Saturday-Saturday Same Day Endo [phone] 7a-8p Otherwise contact [phone] and ask to speak to the oil spreader operator paper production engineer Follow-up care is a liriano part of [...] 2 times daily. 60 tablet 11 10/03/2016 baclofen (LIORESAL) 10 mg Tablet Take 10 [...] Spacing Device Spcr 2 puffs by [facility].(Non-Drug; Combo Route) route daily. cholecalciferol, Vitamin D3, 400 unit tablet Take 400 Units by mouth daily. MULTIVITAMIN ORAL Take 2 tablets by mouth daily. ASCORBATE CALCIUM (VITAMIN C ORAL) Take 1 tablet by mouth daily. loratadine (CLARITIN) 10 mg tabletIndications:Mul tiple nodules of lung Take 10 mg by mouth daily. VIBERZI 100 mg Tablet 2 times daily. 08/01/201711/12 oxyCODONE (ROXICODONE) 10 mg Tablet Take 10 mg by mouth 2 times daily as needed. 11/25/2018 lisinopril (PRINIVIL;ZESTRIL) 5 mg Tablet 10 mg daily. 11/21/2016 11/25/2018 dexlansoprazole (DEXILANT) 60 mg Cap, Delayed Rel., [...] mouth daily. 90 tablet 3 08/19/2012 07/14/2021 nystatin (MYCOSTATIN) 100,000 unit/mL Suspension 4 times daily. 09/09/2017 11/14/2018 Miscellaneous Medical Supply MiscIndications:PAH (pulmonary artery hypertension) Face mask for nocturnal O2 1 each 10/24/2016 04/18/2020 meloxicam (MOBIC) 7.5 mg Tablet 2 times daily. 06/23/2016 11/14/2018 rOPINIRole (REQUIP) 2 mg Tablet Take 2 mg by mouth nightly. Reported on 12/20/2016 05/10/2016 11/14/2018 ipratropium (ATROVENT) 0.06 % nasal spray USE TWO SPRAYS BY NASAL ROUTE 4 TIMES DAILY 15 mL 2 10/21/2013 07/14/2021 documented as of this encounter H&P [...] Keller MD - 11/05/2017 2:02 PM EDT [facility] Operative Note Patient Name: Poppy Mclaughlin : [id number] MR#: [id number] Case Date: 11/05/2017 Surgeon: Surgeon(s) and Role: [...] UPPER GI ENDOSCOPY (11/05/2017 1:36 PM EDT) [facility] UPPER GI ENDOSCOPY [facility] Endoscopy ___ Procedure Date: 11/05/2017 1:36 PM ? Patient Name: Poppy Mclaughlin ? Date of : 1960 ? Age: 57 ? Order #: [id number] ? Instrument Name: [id number] ? ___ Procedure: ? Upper GI endoscopy [...] 11/05/2017 1:36 PM EDT Mary Alice Cage [employer] MACHINE OPERATOR GENERAL SURGICAL ORD ERABLES PROVATION documented in [...] esophagus) documented in this encounter Care Teams Research Scientist Relationship Specialty Start Date End Date Mary Alice Cage APRN PCP - General 10/12/11 11/12/18 documented as of this encounter
--- OUTSIDE RECORDS SUMMARY | 2024-07-24 00:51 | XMS_ITS | Encounter Summary ---
Author Organization [facility] [address] Care Team Providers Care Supervisor Television Chassis Repair Name Role Phone Mary Alice Cage APRN Primary Care Provider [phone] Reason for Referral * Diagnostic Test (Routine) - Closed Specialty Diagnoses / Procedures Referred By Chava alejo Referred To Contact Cardiology Diagnoses PAH (pulmonary artery hypertension) Procedures Echocardiogram Transthoracic(Leb) Osmany Holloway MD [facility] [place] [address] [facility] [place] [address] Referral ID Status Reason Start Date Expiration Date V isits Requested Visits Authorized [id number] Closed Specialty Service Requested 07/09/2016 07/09/2017 1 1 Reason for Visit * Reason Comments Follow-up Encounter Details Date Type Department Care Team (Late st Contact Info) Description 07/09/2016 11:30 AM EST Office [place] [address] Osmany Holloway MD [facility] [place] [address] Mixed restrictive and obstructive lung [...] 30 capsule 5 ??? Miscellaneous Medical Supply [facility] Face mask for nocturnal O2 1 each PRN ??? simvastatin (ZOCOR) 20 mg Tablet Take 20 mg by mouth nightly. ??? OXYGEN-AIR DELIVERY SYSTEMS ([facility]XYGEN CONCENTR[facility]) by [facility].(Non-Drug; Combo Route) route nightly. ??? chlorpheniramine (CHLOR-TRIMETON) [...] [facility]Non-Drug; Combo Route) route daily. ??? fluticasone (FLONASE) [...] M ? (Age): 1960(56y) Med Rec#: ? [id number] ?Sex: ?F ? Site Loc: ? [facility] ?Ht / Wt: ??155(cm)/86(kg) Pt. Loc: ?Echo Lab ?BSA: ?1.85 Study Date: ?? 10/03/2016 ?Pt. Type: Outpatient Tape: ? Referring: Osmany Holloway Reading: Hilario Aguilera ([id number]) Gospel Singer: Andriy Garland Diagnosis: *ICD-10-PCS Other secondary pulmonary hypertension (I27.2) CPT Codes: *Echo Full (59782) *Spectral Doppler (16314) *Color Doppler (15498) Rhythm: ? Sinus BP: ? 106/72 SUMMARY: [...] E-wave Vmax ?0.7 ?m/sec ? MV deceleration anfw754.6 ?msec ? MV A-wave Vmax ?0.7 ?m/sec [...] ? Mid-Inferior ?Normal ? Mid-Inferoseptal ?Normal ? [place]-Septal ? Normal ? [place]-Anterior ? Normal ? [place]-Lateral ?Normal ? [place]-Inferior ? Normal ? [place]-Tip ?Normal ? This report has been electronically signed by: Hilario Aguilera MD ? 10/03/2016 14:03:21 Images reviewed and interpretation verified [facility] Cardiac Ultrasound Laboratory Procedure Note Hilario Aguilera MD - 10/03/2016 Procedure: Transthoracic Echocardiogram Patient: ODETTE Del Cid (Age): 1960(56y) Med Rec#: [id number] Sex: F Site Loc: [facility] Ht / Wt: 155(cm)/86(kg) Pt. Loc: Echo Lab BSA: 1.85 Study Date: 10/03/2016 Pt. Type: Outpatient Tape: Referring: Osmany Holloway Reading: Hilario Aguilera ([id number]) Gospel Singer: Andriy Garland Diagnosis: *ICD-10-PCS Other secondary pulmonary hypertension (I27.2) CPT Codes: *Echo Full (21459) *Spectral Doppler (20522) *Color Doppler (68869) Rhythm: Sinus BP: 106/72 SUMMARY: 1. The [...] MV E-wave Vmax 0.7 m/sec MV deceleration [id number] msec MV A-wave Vmax 0.7 m/sec MV [...] Normal Mid-Posterolateral Normal Mid-Inferior Normal Mid-Inferoseptal Normal [place]-Septal Normal [place]-Anterior Normal [place]-Lateral Normal [place]-Inferior Normal [place]-Tip Normal This report has been electronically signed by: Hilario Aguilera MD 10/03/2016 14:03:21 Images reviewed and interpretation verified [facility] Cardiac Ultrasound Laboratory Osmany Overton MD [...] diseases documented in this encounter Care Teams Supervisor Television Chassis Repair Relationship Specialty Start Date End Date Monona, Mary Alice G, ASSEMBLER MOVEMENT PCP - General 10/12/11 11/12/18 documented as of this encounter
--- OUTSIDE RECORDS SUMMARY | 2024-07-24 00:51 | XMS_ITS | Encounter Summary ---
Author Organization [facility] Mus[facility] adair [place] [address] Care Team Providers Care Aviculturist Name Role Phone Niles Mary Alicepham Drew APRN Primary Care Provider [phone] Reason for Referral * Psychiatric (Routine) - Closed Specialty Diagnoses / Procedures Referred By Chava alejo Referred To Contact Psychiatry Diagnoses Snoring Insomnia, unspecified type Sleep difficulties Shobha Duke APRN [facility] [place] [address] Valentin Le, PhD [facility] [address] Referral ID Status Reason Start Date Expiration Date V isits Requested Visits Authorized [id number] Closed Consult, Test & Treat 12/23/2016 12/23/2017 1 1 Encounter Details Date Type Department Care Team (Late st Contact Info) Description 12/20/2016 10:00 AM EDT Office Visit Sleep Center at [facility] [address] [place] [address] Shobha Duke APRN [facility] [place] [address] Snoring; Insomnia, unspecified type; Sleep difficulties Social [...] Recommendations: --Referral for CBT-i for patient in [facility] area (not up here) --Follow up with Dr. Holloway for pulmonary issues. Oxygenation is significantly improved compared with April of last year. Absence of REM sleep may miss oxygen desaturations that are normally worse during that sleep stage. --Driving safety discussed, recommend patient not drive if drowsy, if drowsy while driving, pot puller and nap. --Follow-up: RTC as needed [...] for CBT-I if the patient is agreeable. [place]: 12 today ROS: Constitutional: Weight change: Loss [...] prefer someone closer to her home in [place], [place], as it is difficulty for her [...] blood sugars (no recent A1C labs in [facility]), this can also interfere with her sleep [...] Recommendations: --Referral for CBT-i for patient in [facility] area, if possible; in [place], [place], far for patient to drive. May be provider in [facility] area on [employer] Find a Therapist [...] drive if drowsy, if drowsy while driving, pot puller and nap. --Consideration of future diagnostic [...] unspecified documented in this encounter Care Teams Aviculturist Relationship Specialty Start Date End Date Mary Alice Cage APRN PCP - General 10/12/11 11/12/18 documented as of this encounter
--- OUTSIDE RECORDS SUMMARY | 2024-07-24 00:51 | XMS_ITS | Encounter Summary ---
Author Organization [facility] [place] [address] Care Team Providers Care Tare Man Name Role Phone Mary Alice Cage MANUELA Primary Care Provider [phone] Encounter Details Date Type Department Care Team (Latest Contact Info) Description 11/05/2017 10:45 AM EDT - 11/05/2017 4:08 PM EDT Hospital En[place] [address] Osmany Keller MD [facility] [place] [address] Discharge Disposition: Home Social History Tobacco Use [...] better as expected. Saturday-Saturday Same Day Endo [phone] 7a-8p Otherwise contact [phone] and ask to speak to the assembler caterpillar spider software configuration manager Follow-up care is a liriano part of [...] [facility] [place]Non-Drug; Combo Route) route daily. cholecalciferol, Vitamin D3, [...] Keller MD - 11/05/2017 2:02 PM EDT [facility] Operative Note Patient Name: Poppy Mclaughlin : [id number] MR#: [id number] Case Date: 11/05/2017 Surgeon: Surgeon(s) and Role: [...] (11/05/2017 1:36 PM EDT) UPPER GI ENDOSCOPY [facility] Endoscopy ___ Procedure Date: 11/05/2017 1:36 PM ? Patient Name: Poppy Mclaughlin ? Date of : 1960 ? Age: 57 ? Order #: [id number] ? Instrument Name: [id number] ? ___ Procedure: ? Upper GI endoscopy [...] 11/05/2017 1:36 PM EDT Mary Alice Cage CURRICULUM SPECIALIST GENERAL SURGICAL ORD ERABLES PROVATION documented in [...] esophagus) documented in this encounter Care Teams Tare Man Relationship Specialty Start Date End Date Mary Alice Cage APRN PCP - General 10/12/11 11/12/18 documented as of this encounter
--- OUTSIDE RECORDS SUMMARY | 2024-07-24 00:51 | XMS_ITS | Encounter Summary ---
Author Organization [facility] [address] Care Team Providers Care Drive Away Driver Name Role Phone SurryMary Alice davis Rajendra ROY Primary Care Provider [phone] Encounter Details Date Type Department Care Team (Latest Contact Info) Description 09/13/2017 3:26 PM EST - 09/13/2017 11:59 PM [facility] Hospital [place] [address] COPD, moderate Discharge Disposition: Home Social History [...] OXYGEN CONCENTRATOR MISC) 3 L by [facility].(Non-Drug; Combo Route) route nightly. diphenoxylate-atropin e (LOMOTIL) 2.5-0.025 mg Tablet Take 1 tablet by mouth 4 times daily. DO NOT restarted this unless you are having diarrhea. 120 tablet 7 06/11/2014 Inhalational Spacing Device Spcr 2 puffs [facility]; Combo Route) route daily. cholecalciferol, Vitamin D3, [...] 10/21/2013 07/14/2021 documented as of this encounter Procedure [...] classified documented in this encounter Care Teams Drive Away Driver Relationship Specialty Start Date End Date Mary Alice Cage APRN PCP - General 10/12/11 11/12/18 documented as of this encounter
--- OUTSIDE RECORDS SUMMARY | 2024-07-24 00:51 | XMS_ITS | Encounter Summary ---
[place] [address] Care Team Providers Care Brothel Keeper Name Role Phone ChaffeeMary Alice davis Rajendra ROY Primary Care Provider [phone] Reason for Visit * Reason Onset Date Comments Prior Authorization 10/19/2016 Encounter Details Date Type Department Care Team (Late st Contact Info) Description 10/19/2016 Tele[place] [address] Gardenia Bueno CMA GASTROENTEROLOGY DEPT Prior Authorization [...] Update. Approved on appeal 10/19/16 - 08/11/17 [id number] Patient and pharmacy informed. * Telephone Encounter [...] Prior Authorization 4L Gastroenterology / [place] [address] Subscriber Insurance: OPTUM RX Physician: Justin Starkey Return Pharmacy: [facility] Medication Requested: Viberzi Strength: 100 mg Frequency: [...] treat the condition. Tracking number/Case number/Reference number: [id number] Effective date: Start: End: documented in this encounter Plan of Treatment Not on file documented as of this encounter Visit Diagnoses Not on filedocumented in this encounter Care Teams Brothel Keeper Relationship Specialty Start Date End Date Mary Alice Cage APRN PCP - General 10/12/11 11/12/18 documented as of this encounter
--- OUTSIDE RECORDS SUMMARY | 2024-07-24 00:51 | XMS_ITS | Encounter Summary ---
Author Organization [facility] [place] [address] Care Team Providers Care Mosaic Tiler Name Role Phone Mary Alice Cage MANUELA Primary Care Provider Encounter Details Date Type Department Care Team (Late st Contact Info) Description 10/02/2016 1:00 PM EST - 10/02/2016 1:30 PM EST Surgery [place] [address] Justin Starkey MD [facility] DR GASTROENTEROLOGY [place] [address] EGD, UPPER GI ENDOSCOPY (WRVU 2.09) Social [...] occurs please contact your M.D. Please call [phone] before 5 pm with problems, questions or concerns. After 5pm call [phone] and ask to speak with the electronics production supervisor functional consultant. Discharge instructions reviewed with patient who expresses understanding. * Patient Instructions* Justin Starkey MD - 10/02/2016 1:24 PM EST Please see Recommendations in the Provation procedure report which is documented in the procedural note in E-DH. * Attachments The following attachments cannot be sent through Care Everywhere. * EGD (UPPER ENDOSCOPY): POST-OP (SINHALA) documented in this encounter Medications at Time [...] Inhalational Spacing Device Spcr [facility]Non-Drug; Combo Route) route daily. cholecalciferol, Vitamin D3, [...] 12/20/2016 sulfamethoxazole-trim ethoprim (BACTRIM DS) 800-160 mg TabletIndications:COAL GETTER D, moderate TAKE ONE TABLET BY MOUTH [...] (10/02/2016 12:56 PM EST) UPPER GI ENDOSCOPY [facility] Endoscopy ___ Procedure Date: 10/02/2016 12:56 PM ? Patient Name: Poppy Mclaughlin ? Date of : 1960 ? Age: 56 ? Order #: [id number] ? Instrument Name: [id number] ? ___ Procedure: ? Upper GI endoscopy [...] Procedure Code(s): ?? --- Professional --- ? 34968, Esophagogastroduode noscopy, ? flexible, transoral; with directed ? submucosal injection(s), any substance CPT copyright 2016 [employer]. All rights reserved. The codes documented in this report are preliminary and upon electrolysis engineer review may be revised to meet current [...] MD) documented in this encounter Care Teams Mosaic Tiler Relationship Specialty Start Date End Date Mary Alice Cage APRN PCP - General 10/12/11 11/12/18 documented as of this encounter
--- OUTSIDE RECORDS SUMMARY | 2024-07-24 00:51 | XMS_ITS | Encounter Summary ---
[place] [address] Care Team Providers Care Master Fisher Name Role Phone GraysonMary Alice davis Rajendra ROY Primary Care Provider [phone] Reason for Visit * Reason Onset Date Comments Prior Authorization 09/21/2016 Encounter Details Date Type Department Care Team (Late st Contact Info) Description 09/21/2016 Telephone [place] [address] Gardenia Bueno CMA GASTROENTEROLOGY DEPT Prior Authorization [...] 11:05 AM EST Called Malgorzata from the [facility] to let them know that the [...] Prior Authorization 4L Gastroenterology / [place] [address] Subscriber Insurance: optumRX Physician: Justin Starkey Return Pharmacy: [facility] Telephone Fax ? [phone] Medication Requested: Glycopyrrolate Strength: 1 mg Frequency: BID Disp.: 30 Refills: 11 Currently taking: no Diagnosis for this medication: dyskinesia of esophagus ICD-10 code: K22.4 Prior medications trialed in this patient: Bentyl,Albuterol puffer Medication: Outcome/Adverse Reactions: treatment failure Decision: denied the claim being being used as an off label use. Tracking number/Case number/Reference number: [id number] Effective date: Start: End: documented in this encounter Plan of Treatment Not on file documented as of this encounter Visit Diagnoses Not on filedocumented in this encounter Care Teams Master Fisher Relationship Specialty Start Date End Date Mary Alice Cage APRN PCP - General 10/12/11 11/12/18 documented as of this encounter
--- OUTSIDE RECORDS SUMMARY | 2024-07-24 00:51 | XMS_ITS | Encounter Summary ---
Author Organization [facility] [address] Care Team Providers Care Sweeper Operator Highways Name Role Phone Mary Alice Cage MANUELA Primary Care Provider [phone] Encounter Details Date Type Department Care Team (Late st Contact Info) Description 10/02/2016 1:05 PM EST Anesthesia [place] [address] Fabian Schaeffer MD [facility] [place] [address] Re Palmer CRNA [facility] [place] [address] Anesthesia Record Procedure Summary Procedure Name Responsible Anesthesiologist Anesthesia Start Time Anesthesia Stop Time EGD, UPPER GI ENDOSCOPY (WRVU 2.09) (Trunk) Fabian Schaeffer MD 10/02/16 1305 10/02/16 1332 Events Date Time Event Comment 10/02/2016 1303 1305 AN Verify 1305 Start 1308 An Start Data 1313 An Induction 1315 Anesthesia Ready 1318 Quick Note 28 mosotho nasal trumpet to right nare, atraumatic 1332 [...] IV Line - Single Lumen 10/02/16; 1243; degy-dij-vznfoq catheter system; eTa Gonzales; distraction, intradermal injection; 10/02/16; 1451 10/02/16 [...] Schaeffer MD - 10/02/2016 2:10 PM EST [facility] [place] of Anesthesiology Post-procedure Note Patient: Poppy Mclaughlin Procedure Summary Date Anesthesia Start Anesthesia Stop Room / Location 10/02/16 1305 1332 [facility] ENDO 2 / [facility] ENDOSCOPY Procedure Diagnosis Surgeon Responsible Provider EGD, UPPER GI ENDOSCOPY (N/A Trunk) (EGD w/Botox-dysphagia (anesthesia consult)) Justin Starkey MD Surgenor, Stephen D, MD All Anesthesia Providers: Anesthesiologist: Fabian Schaeffer MD TRAVELING BUYER: Re Palmer CRNA Last (1hr) Vitals: BP 106/72 (10/02/16 1335) Temp Pulse 81 (10/02/16 1335) Resp 16 (10/02/16 1335) SpO2 97 % (10/02/16 1335) [facility] Level of Consciousness: Awake and Alert Pain [...] CHOLANGIOGRAM performed by Abel Carlton MD at [facility] MAIN OR ??? Pro arthrodesis, ant interbody,decompression; cervical below c2 09/08/2013 ARTHRODESIS, ANT INTERBODY,DECOMPRESSION; CERVICAL BELOW C2 performed by Rios Acuna MD at [facility] MAIN OR ??? Pro arthrd ant interdy cervcl belw c2 ea addl ntrspc 09/08/2013 @ARTHRODESIS ANT INTERBDY CERVCL BELOW C2 EA ADDL INTRSPACE performed by Rios Acuna MD at [facility] OR ??? Pro anterior instrumentation 2-3 vertebral segments 09/08/2013 @ANT. SPINAL INSTRUMENTATION, 2-3 VERTEBRA, SEGMENTED performed by Rios Acuna MD at [facility] [place] ??? Pro allograft for spine surgery only structural 09/08/2013 ALLOGRAFT FOR SPINE SURGERY ONLY; STRUCTUAL performed by Rios Acuna MD at [facility] OR ??? Pro decompress spinal cord, 1 seg Right 08/31/2014 TRANSPEDICULAR LUMBAR DECOMPRESSION SPINAL CORD,EQUINA & NERVE ROOTS, ONE LVL. performed by Rios Acuna MD at [facility] OR ??? Right 08/31/2014 MODIFIER L4 performed by Rios Acuna MD at [facility] MAIN OR ??? Right 08/31/2014 MODIFIER L5 performed by Rios Acuna MD at [facility] MAIN OR ??? Pro upper gi endoscopy, diagnostic N/A 10/26/2015 EGD, UPPER GI ENDOSCOPY performed by Apolinar Sepulveda MD at [facility] ENDOSCOPY ??? Pro upper gi endoscopy, biopsy N/A 10/26/2015 UPPER GASTROINTESTINAL ENDOSCOPY,WITH BIOPSY SINGLE OR MULTIPLE performed by Apolinar Sepulveda MDat [facility] ENDOSCOPY Social History Substance Use Topics [...] problems with Propofol during [place] [facility] [place] [facility] [place]. HTN GERD Asthma Depression/anxiety COPD, THOMAS Multiple pulmonary nodules/granulomata NPO: Code: Full Region - Other Informed Consent: Anesthetic plan and risks discussed with patient. Use of blood products discussed with patient who consented to blood products. Plan [facility] with [facility]. [facility]: PAT Staff Note documented in [...] mL/hr documented in this encounter Care Teams Sweeper Operator Highways Relationship Specialty Start Date End Date Mary Alice Cage APRN PCP - General 10/12/11 11/12/18 documented as of this encounter
--- OUTSIDE RECORDS SUMMARY | 2024-07-24 00:51 | XMS_ITS | Encounter Summary ---
[place] [address] Care Team Providers Care Crop And Soil Technician Name Role Phone Mary Alice Cage MANUELA Primary Care Provider [phone] Encounter Details Date Type Department Care Team (Late st Contact Info) Description 11/07/2017 Telephone [place] [address] Charmaine Martinez MD [facility] DR [place] [address] Social History Tobacco Use Types Packs/Day Years [...] on filedocumented in this encounter Care Teams Crop And Soil Technician Relationship Specialty Start Date End Date Mary Alice Cage APRN PCP - General 10/12/11 11/12/18 documented as of this encounter
--- OUTSIDE RECORDS SUMMARY | 2024-07-24 00:51 | XMS_ITS | Encounter Summary ---
Author Organization [facility] [place] [address] Care Team Providers Care Tool Supervisor Name Role Phone MineralMary Alice davis Rajendra ROY Primary Care Provider [phone] Reason for Visit * Reason Comments Follow-up Encounter Details Date Type Department Care Team (Latest Contact Info) Description 08/21/2017 10:00 AM EST Office Visit [place] [address] Osmany Keller MD [facility] [place] [address] Gastroesophageal reflux disease, esophagitis presence not specified; [...] 5. [facility] hand [facility] April [facility] - tendon release.. Social : still [...] esophagus documented in this encounter Care Teams Tool Supervisor Relationship Specialty Start Date End Date Mary Alice Cage APRN PCP - General 10/12/11 11/12/18 documented as of this encounter
--- OUTSIDE RECORDS SUMMARY | 2024-07-24 00:51 | XMS_ITS | Encounter Summary ---
Author Organization [facility] [address] Care Team Providers Care Shell Core And Molding Supervisor Name Role Phone Mary Alice Cage APRN Primary Care Provider Reason for Visit * Reason Comments Medication Refill Encounter Details Date Type Department Care Team (Late st Contact Info) Description 03/25/2017 Refill [place] [address] Justin Starkey MD [facility] DR GASTROENTEROLOG[place] [address] Social History Tobacco Use Types Packs/Day Years [...] on filedocumented in this encounter Care Teams Shell Core And Molding Supervisor Relationship Specialty Start Date End Date Mary Alice Cage APRN PCP - General 10/12/11 11/12/18 documented as of this encounter
--- OUTSIDE RECORDS SUMMARY | 2024-07-24 00:51 | XMS_ITS | Encounter Summary ---
Author Organization [facility] [address] Care Team Providers Care Production Cost Estimator Name Role Phone ClaytonMary Alice davis Rajendra ROY Primary Care Provider [phone] Reason for Visit * Reason Onset Date Comments Appointment 09/18/2017 schedule appt Encounter Details Date Type Department Care Team (Late st Contact Info) Description 09/18/2017 Telephone [place] [address] Marcos Manley II Appointment (schedule appt ) [...] filedocumented in this encounter Care Teams Production Cost Estimator Relationship Specialty Start Date End Date Mary Alice Cage APRN PCP - General 10/12/11 11/12/18 documented as of this encounter
--- OUTSIDE RECORDS SUMMARY | 2024-07-24 00:51 | XMS_ITS | Encounter Summary ---
[place] [address] Care Team Providers Care Global Project Manager Name Role Phone PersonMary Alice davis Rajendra ROY Primary Care Provider [phone] Reason for Visit * Reason Onset Date Comments Prior Authorization 10/10/2017 Encounter Details Date Type Department Care Team (Late st Contact Info) Description 10/10/2017 Telephone [place] [address] Gardenia Bueno CMA GASTROENTEROLOGY DEPT Prior Authorization [...] Prior Authorization 4L Gastroenterology / [place] [address] Subscriber Insurance: [employer] Rx Phone: Fax: Physician: Osmany Keller Return Pharmacy: [facility] Medication Requested: Viberzi Strength: 100 mg Frequency: BID Disp.: 60 Refills: 5 Currently taking: yes Diagnosis for this medication: IBS-D ICD-10 code: K58.0 Prior medications trialed in this patient: xifaxan,lomotil, imodium Medication: Outcome/Adverse Reactions: treatment failure Decision: Per cover my meds: Request Reference Number: [id number]. VIBERZI TAB 100MG is approved through 04/12/2018. For further questions, call . Tracking number/Case number/Reference number: Effective date: Start: End: documented in this encounter Plan of Treatment Not on file documented as of this encounter Visit Diagnoses Not on filedocumented in this encounter Care Teams Global Project Manager Relationship Specialty Start Date End Date Mary Alice Cage APRN PCP - General 10/12/11 11/12/18 documented as of this encounter
--- OUTSIDE RECORDS SUMMARY | 2024-07-24 00:51 | XMS_ITS | Encounter Summary ---
[place] [address] Care Team Providers Care Quality Assurance Lead Name Role Phone Mary Alice Cage APRN Primary Care Provider [phone] Reason for Referral * Diagnostic Test (Routine) - Closed Specialty Diagnoses / Procedures Referred By Contac t Referred To Contact Cardiology Diagnoses PAH (pulmonary artery hypertension) Procedures Echocardiogram Transthoracic(Leb) Osmany Holloway MD [facility] [place] [address] [facility] [place] [address] Referral ID Status Reason Start Date Expiration Date V isits Requested Visits Authorized [id number] Closed Specialty Service Requested 07/09/2016 07/09/2017 1 1 Reason for Visit * Diagnostic Test (Routine) - Closed Specialty Diagnoses / Procedures Referred By Contac t Referred To Contact Cardiology Diagnoses PAH (pulmonary artery hypertension) Procedures Echocardiogram Transthoracic(Leb) Osmany Holloway MD [facility] [place] [address] [facility] [place] [address] Referral ID Status Reason Start Date Expiration Date V isits Requested Visits Authorized [id number] Closed Specialty Service Requested 07/09/2016 07/09/2017 1 1 Encounter Details Date Type Department Care Team (Latest Contact Info) Description 10/03/2016 12:30 PM EST - 10/03/2016 1:57 PM EST Hospital Encounter Non-Invasive Cardiology Lab [facility] [place] [address] Osmany Holloway MD [facility] [place] [address] PAH (pulmonary artery hypertension) Discharge Disposition: Home [...] Inhalational Spacing Device Spcr 2 puffs by [facility].(Non-Drug; Combo Route) route daily. cholecalciferol, Vitamin D3, [...] times daily. 60 tablet 11 09/13/2016 09/13/2017 dicyclomine (BENTYL) 10 mg CapsuleIndications:Ch ronic abdominal [...] needed. 12/20/2016 documented as of this encounter Plan of [...] Cid ? (Age): 1960(56y) Med Rec#: ? [id number] ?Sex: ?F ? Site Loc: ? [facility] ?Ht / Wt: ??155(cm)/86(kg) Pt. Loc: ?Echo Lab ?BSA: ?1.85 Study Date: ?? 10/03/2016 ?Pt. Type: Outpatient Tape: ? 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 Sinus BP: ? 106/72 SUMMARY: [...] E-wave Vmax ?0.7 ?m/sec ? MV deceleration lqxo249.6 ?msec ? MV A-wave Vmax ?0.7 ?m/sec [...] ? Mid-Inferior ?Normal ? Mid-Inferoseptal ?Normal ? Opal-Septal ? Normal ? Opal-Anterior ? Normal ? Opal-Lateral ?Normal ? Opal-Inferior ? Normal ? Opal-Tip ?Normal ? This report has been electronically signed by: Hilario Aguilera MD ? 10/03/2016 14:03:21 Images reviewed and interpretation verified [facility] Cardiac Ultrasound Laboratory Procedure Note Hilario Aguilera MD - 10/03/2016 Procedure: Transthoracic Echocardiogram Patient: ODETTE Del Cid MARYAM(Age): 1960(56y) Med Rec#: [id number] Sex: F Site Loc: [facility] Ht / Wt: 155(cm)/86(kg) Pt. Loc: Echo Lab BSA: 1.85 Study Date: 10/03/2016 Pt. Type: Outpatient Tape: Referring: Osmany Holloway Reading: Hilario Aguilera ([id number]) Metal Pickling Equipment Operator: Andriy Garland Diagnosis: *ICD-10-PCS Other secondary pulmonary hypertension (I27.2) CPT Codes: *Echo Full (26823) *Spectral Doppler (61047) *Color Doppler (31951) Rhythm: Sinus BP: 106/72 SUMMARY: 1. The [...] MV E-wave Vmax 0.7 m/sec MV deceleration jajo010.6 msec MV A-wave Vmax 0.7 m/sec MV [...] Normal Mid-Posterolateral Normal Mid-Inferior Normal Mid-Inferoseptal Normal Opal-Septal Normal Opal-Anterior Normal Opal-Lateral Normal Opal-Inferior Normal Opal-Tip Normal This report has been electronically signed by: Hilario Aguilera MD 10/03/2016 14:03:21 Images reviewed and interpretation verified [facility] Cardiac Ultrasound Laboratory Osmany Overton MD ECHO ORDERABLES documented in this encounter Visit Diagnoses Diagnosis PAH (pulmonary artery hypertension) Other chronic pulmonary heart diseases documented in this encounter Care Teams Quality Assurance Lead Relationship Specialty Start Date End Date Mary Alice Cage APRN PCP - General 10/12/11 11/12/18 documented as of this encounter
--- OUTSIDE RECORDS SUMMARY | 2024-07-24 00:51 | XMS_ITS | Encounter Summary ---
[place] [address] Care Team Providers Care Small Stock Facer Name Role Phone Mary Alice Cage MANUELA Primary Care Provider [phone] Reason for Visit * Reason Onset Date Comments Medication Refill 10/23/2016 Encounter Details Date Type Department Care Team (Late st Contact Info) Description 10/24/2016 [place] [address] Kalie Boss RN PAH (pulmonary artery hypertension) [...] Supply Misc [MACHELLE BUENO MD] Preferred pharmacy: [facility] [address] [place] [address] Comment: documented in this encounter Plan of Treatment Not on file documented as of this encounter Visit Diagnoses Diagnosis PAH (pulmonary artery hypertension) Other chronic pulmonary heart diseases documented in this encounter Care Teams Small Stock Facer Relationship Specialty Start Date End Date Mary Alice Cage APRN PCP - General 10/12/11 11/12/18 documented as of this encounter
--- OUTSIDE RECORDS SUMMARY | 2024-07-24 00:51 | XMS_ITS | Encounter Summary ---
[place] [address] Care Team Providers Care Retinal Angiographer Name Role Phone AlleganMary Alice davis MANUELA Primary Care Provider [phone] Encounter Details Date Type Department Care Team (Late st Contact Info) Description 05/04/2016 Telephone Sleep Center at [facility] [address] [place] [address] Annie Marino MD [facility] [place] [address] Social History Tobacco Use Types Packs/Day Years [...] on filedocumented in this encounter Care Teams Retinal Angiographer Relationship Specialty Start Date End Date Mary Alice Cage APRN PCP - General 10/12/11 11/12/18 documented as of this encounter
--- OUTSIDE RECORDS SUMMARY | 2024-07-24 00:51 | XMS_ITS | Encounter Summary ---
Author Organization [facility] [place] [address] Care Team Providers Care Director Of Advertising Sales Name Role Phone Mary Alice Cage MANUELA Primary Care Provider Encounter Details Date Type Department Care Team (Late st Contact Info) Description 05/07/2016 Telephone Sleep Center at [facility] [address] [place] [address] Annie Marino MD [facility] SLEEP [place] [address] Social History Tobacco Use Types Packs/Day Years [...] in this encounter Care Teams Director Of Advertising Sales Relationship Specialty Start Date End Date Mary Alice Cage APRN PCP - General 10/12/11 11/12/18 documented as of this encounter
--- OUTSIDE RECORDS SUMMARY | 2024-07-24 00:51 | XMS_ITS | Encounter Summary ---
Author Organization [facility] [address] Care Team Providers Care Scheduling Specialist Name Role Phone Mary Alice Cage APRN Primary Care Provider Reason for Visit * Reason Comments Medication Refill Encounter Details Date Type Department Care Team (Late st Contact Info) Description 08/10/2016 Refill [place] [address] Justin Starkey MD [facility] DR [place]STRO[place] [address] Chronic abdominal pain Social History Tobacco Use [...] site documented in this encounter Care Teams Scheduling Specialist Relationship Specialty Start Date End Date Mary Alice Cage APRN PCP - General 10/12/11 11/12/18 documented as of this encounter
--- OUTSIDE RECORDS SUMMARY | 2024-07-24 00:51 | XMS_ITS | Encounter Summary ---
Author Organization [facility] [place] [address] Care Team Providers Care Oil Well Fishing Tool Technician Name Role Phone NilesMary Alice Rajendra ROY Primary Care Provider [phone] Reason for Referral * Physical Therapy (Routine) - Closed Specialty Diagnoses / Procedures Referred By Chava alejo Referred To Contact Diagnoses Chronic bilateral low back pain with right-sided sciatica Jessy Olivera [facility] [place] [address] Unknown None Referral ID Status Reason Start Date Expiration Date V isits Requested Visits Authorized [id number] Closed Evaluate and Treat 05/16/2016 11/12/2016 24 24 Reason for Visit * Reason Comments Pain Management Back Pain Encounter Details Date Type Department Care Team (Late st Contact Info) Description 05/16/2016 8:00 AM EDT [place] [address] [address] [facility] [place] [address] Chronic bilateral low back pain with right-sided [...] Mary Alice Domingo APRN [address] [place] [address] PRIMARY CARE PROVIDER MARY ALICE DOMINGO APRN CHIEF COMPLAINT: Chronic pain management follow-up HPI: Poppy Mclaughlin is a 55 year-old female who has been seen a few times in the past in the [facility] for various injections. She has [...] she was advised to present to the critical access hospital ED for evaluation. She went to [...] MOUTH ONCE DAILY Yes Miscellaneous Medical Supply [facility] Face mask for nocturnal O2 Yes HYDROcodone-acetaminophen (VICODIN) 5-300 mg Tablet Take 1 tablet by mouth every 4 hours. 10 mg Yes simvastatin (ZOCOR) 20 mg Tablet Take 20 mg by mouth nightly. Yes OXYGEN-AIR DELIVERY SYSTEMS ([facility] OXYGEN CONCENTRATOR [facility]) by [facility].(Non- Drug; Combo Route) route nightly. Yes chlorpheniramine [...] Inhalational Spacing Device Spcr 2 puffs by [facility].(Non-Drug; Combo Route) route daily. Yes fluticasone (FLONASE) [...] were answeredto her satisfaction. Jessy Olivera, SAMUEL, LABOR RELATIONS ANALYST-BC, PROFESSIONAL VOLLEYBALL PLAYER Nurse Practitioner [facility] documented in [...] myelopathy documented in this encounter Care Teams Oil Well Fishing Tool Technician Relationship Specialty Start Date End Date Mary Alice Domingo APRN PCP - General 10/12/11 11/12/18 documented as of this encounter
--- OUTSIDE RECORDS SUMMARY | 2024-07-24 00:51 | XMS_ITS | Encounter Summary ---
[place] [address] Care Team Providers Care Linen Room Houseperson Name Role Phone Niles Mary Alice Drew APRN Primary Care Provider [phone] Encounter Details Date Type Department Care Team (Latest Contact Info) Description 10/03/2016 1:58 PM EST - 10/03/2016 11:59 PM EST Hospital Encounter [place] [address] Mixed restrictive and obstructive lung disease Discharge [...] CLASSIC OXYGEN CONCENTRATOR MISC) 3 L by [facility].(Non-Drug; Combo Route) route nightly. diphenoxylate-atropin e (LOMOTIL) 2.5-0.025 mg Tablet Take 1 tablet by mouth 4 times daily. DO NOT restarted this unless you are having diarrhea. 120 tablet 7 06/11/2014 Inhalational Spacing Device Spcr 2 puffs by [facility].(Non-Drug; Combo Route) route daily. cholecalciferol, Vitamin D3, [...] classified documented in this encounter Care Teams Linen Room Houseperson Relationship Specialty Start Date End Date Mary Alice Cage APRN PCP - General 10/12/11 11/12/18 documented as of this encounter
--- OUTSIDE RECORDS SUMMARY | 2024-07-24 00:51 | XMS_ITS | Encounter Summary ---
Author Organization [facility] [place] [address] Care Team Providers Care Print Inspector Name Role Phone Mary Alice Cage APRN Primary Care Provider [phone] Reason for Visit * Reason Comments Medication Refill Encounter Details Date Type Department Care Team (Late st Contact Info) Description 07/07/2016 Ref[place] [address] Osmany Holloway MD [facility] [place] [address] COPD, moderate Social History Tobacco Use Types [...] classified documented in this encounter Care Teams Print Inspector Relationship Specialty Start Date End Date Mary Alice Cage APRN PCP - General 10/12/11 11/12/18 documented as of this encounter
--- OUTSIDE RECORDS SUMMARY | 2024-07-24 00:52 | XMS_ITS | Encounter Summary ---
Author Organization [facility] [place] [address] Care Team Providers Care Rn Security Name Role Phone Mary Alice Cage MANUELA Primary Care Provider [phone] Encounter Details Date Type Department Care Team (Late st Contact Info) Description 09/26/2015 Orders [place] [address] Osmany Holloway MD [facility] PULMONARY MEDICINE [place] [id number] Syncope, unspecified syncope type Social History Tobacco [...] type documented in this encounter Care Teams Rn Security Relationship Specialty Start Date End Date Mary Alice Cage APRN PCP - General 10/12/11 11/12/18 documented as of this encounter
--- OUTSIDE RECORDS SUMMARY | 2024-07-24 00:52 | XMS_ITS | Encounter Summary ---
[place] [address] Care Team Providers Care Building Code Inspector Name Role Phone SargentMary Alice davis Rajendra ROY Primary Care Provider [phone] Reason for Visit * Auth/Cert Specialty Diagnoses / Procedures Referred By Chava alejo Referred To Contact Diagnoses Gerd monomity off meds 2 weeks Procedures PRO UPPER GI ENDOSCOPY, DIAGNOSTIC EGD, UPPER GI ENDOSCOPY Referral ID Status Reason Start Date Expiration Date Visits Re quested Visits Authorized [id number] 1 1 Encounter Details Date Type Department Care Team (Latest Contact Info) Description 10/26/2015 11:38 AM EDT - 10/26/2015 2:40 PM EDT Hospital [place] [address] Apolinar Sepulveda MD [facility] [place] [address] Discharge Disposition: Home Social History Tobacco Use [...] Other Instructions Be sure to carry your track moving machine operator within 3 feet at all times . [...] better as expected. Saturday-Saturday Same Day Endo [phone]-8p Otherwise contact [phone] and ask to speak to the luster repairer cook station Ade Paul RN [phone] if any problems with track moving machine operator Follow-up care is a liriano part [...] OXYGEN CONCENTRATOR MISC) 3 L by [facility].(Non-Drug; Combo Route) route nightly. chlorpheniramine (CHLOR-TRIMETON) 4 mg Tablet Take 4 mg by mouth every 6 hours as needed for Allergies. diphenoxylate-atropine (LOMOTIL) 2.5-0.025 mg Tablet Take 1 [...] lung Take 10 mg by mouth daily. promethazine (PHENERGAN) 25 mg tablet Take 25 mg by mouth every 6 hours as needed. Miscellaneous Medical Supply MiscIndications:PAH (pulmonary artery hypertension) [...] Take 25 mg by mouth daily. 07/09/2016 BUDESONIDE/FORMOTEROL FUMARATE (SYMBICORT INHL) Inhale 2 [...] mouth daily. 90 tablet 3 08/19/2012 07/14/2021 dicyclomine (BENTYL) 10 mg CapsuleIndications:Chr onic abdominal pain Take 1 capsule by mouth 4 times daily. 120 capsule 11 05/24/2015 06/15/2016 lisinopril (PRINIVIL;ZESTRIL) 10 mg TabletIndications:Giovanny a,Hypertension Take 1 tablet by mouth daily. 30 tablet 12 08/03/2014 07/09/2016 ibuprofen (ADVIL;MOTRIN) 800 mg Tablet Take 800 mg by mouth 3 times daily. 07/09/2016 documented as of this encounter H&P Notes [...] Sig Dispense Refill ??? Miscellaneous Medical Supply [facility] Face mask for nocturnal O2 1 each PRN ??? HYDROcodone-acetaminophen (VICODIN) 5-300 mg Tablet Take 1 tablet by mouth every 4 hours. 10 mg ??? simvastatin (ZOCOR) 20 mg Tablet Take 20 mg by mouth nightly. ??? OXYGEN-AIR DELIVERY SYSTEMS ( CLASSIC OXYGEN CONCEN[facility]ATOR [facility]) by [facility].(Non-Drug; Combo Route) route nightly. [...] PM EDT 10/26/2015 1:51 PM EDT Narrative [facility] - 10/26/2015 1:51 PM EDT Specimen requisition ordered. ??Separate Pathology report to follow Apolinar Sepulveda MD PATHOLOGY/CYTOLOGY ORDERABLES [facility] [place] [address] * Specimen to Pathology (surgical or derm) (10/26/2015 1:49 PM EDT) AP Specimen 10/26/2015 1:49 PM EDT 10/26/2015 1:49 PM EDT Narrative [facility] - 10/26/2015 1:49 PM EDT Specimen requisition ordered. ??Separate Pathology report to follow Apolinar Sepulveda MD PATHOLOGY/CYTOLOGY ORDERABLES Performing Organization Address [facility] [place] [address] * Specimen to Pathology (surgical or derm) (10/26/2015 1:48 PM EDT) AP Specimen 10/26/2015 1:48 PM EDT 10/26/2015 1:48 PM EDT Narrative [facility] - 10/26/2015 1:48 PM EDT Specimen requisition ordered. ??Separate Pathology report to follow Apolinar Sepulveda MD PATHOLOGY/CYTOLOGY ORDERABLES Performing Organization Address [facility] de Phone Number [facility] [place] [address] * Surgical Pathology Report (10/26/2015 1:32 PM EDT) Final Diagnosis [id number] ? Location: The signing pathologist has (i) [...] sing: (T1) ??ejr 10/28/2015 12:00 PM EDT [facility] GI Biopsy 10/26/2015 1:32 PM EDT 10/26/2015 1:32 PM EDT GI Biopsy 10/26/2015 1:32 PM EDT 10/26/2015 1:32 PM EDT Apolinar Sepulveda MD PATHOLOGY/CYTOLOGY ORDERABLES Performing Organization Address [facility] Co de Phone Number [facility] [place] [address] * Specimen to Pathology (surgical or derm) (10/26/2015 1:32 PM EDT) AP Specimen 10/26/2015 1:32 PM EDT 10/26/2015 1:32 PM EDT Narrative [facility] - 10/26/2015 1:32 PM EDT Specimen requisition ordered. ??Separate Pathology report to follow Apolinar Sepulveda MD PATHOLOGY/CYTOLOGY ORDERABLES Performing Organization Address [facility]/ZIP Co de Phone Number [facility] [place] [address] * Specimen to Pathology (surgical or derm) (10/26/2015 1:32 PM EDT) AP Specimen 10/26/2015 1:32 PM EDT 10/26/2015 1:32 PM EDT Narrative [facility] - 10/26/2015 1:32 PM EDT Specimen requisition ordered. ??Separate Pathology report to follow Apolinar Sepulveda MD PATHOLOGY/CYTOLOGY ORDERABLES [facility] [place] [address] documented in this encounter Visit Diagnoses Not [...] time) documented in this encounter Care Teams Building Code Inspector Relationship Specialty Start Date End Date Mary Alice Cage APRN PCP - General 10/12/11 11/12/18 documented as of this encounter
--- OUTSIDE RECORDS SUMMARY | 2024-07-24 00:52 | XMS_ITS | Encounter Summary ---
[place] [address] Care Team Providers Care Preschool Program Director Name Role Phone IssaquenaMary Alice davis MANUELA Primary Care Provider [phone] Encounter Details Date Type Department Care Team (Late st Contact Info) Description 11/25/2015 Telephone [place] [address] Peg Abel, RN Social History Tobacco Use [...] on 11/21 by the order of her compliance examiner. She called that her Zio cameoff after shower yesterday. She taped the bottom part of it. Wondering what se should do. ? She did call somebody yesterday and was expecting a call today (but it didn't happen). ? I will forward the note and talk to Zio department tomorrow. ? Her mom's apartment number is [phone] (she is leaving some time tomorrow to got there). ? Will forward note to Dr. Holloway as well. 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 The Zio patch [...] on filedocumented in this encounter Care Teams Preschool Program Director Relationship Specialty Start Date End Date Mary Alice Cage APRN PCP - General 10/12/11 11/12/18 documented as of this encounter
--- OUTSIDE RECORDS SUMMARY | 2024-07-24 00:52 | XMS_ITS | Encounter Summary ---
[place] [address] Care Team Providers Care Tray Room Worker Name Role Phone Mary Alice Cage APRN Primary Care Provider [phone] Reason for Visit * Diagnostic Test (Routine) - Closed Specialty Diagnoses / Procedures Referred By Chava t Referred To Contact Radiology Diagnoses Low back pain, non-specific Procedures MRI Lumbar Spine With/WO Contrast MRI Lumbar Spine Without Contrast (GENERIC) MRI Lumbar Spine With/WO Contrast Rios Acuna MD [facility] [place] [address] [place] [address] Referral ID Status Reason Start Date Expiration Date V isits Requested Visits Authorized [id number] Closed Specialty Service Requested 02/27/2016 02/26/2017 1 1 Encounter Details Date Type Department Care Team (Latest Contact Info) Description 02/27/2016 1:04 PM EDT - 02/27/2016 2:14 PM EDT Hospital [place] [address] Rios Acuna MD [facility] [place] [address] Low back pain, non-specific Discharge Disposition: Home [...] Sig Dispensed Refills Start Date End Date chlorpheniramine (CHLOR-TRIMETON) 4 mg Tablet Take 4 mg by mouth every 6 hours as needed for Allergies. albuterol (PROVENTIL HFA;VENTOLIN HFA) 90 mcg/actuation HFA Aerosol Inhaler Inhale 2 puffs into the lungs every 4 hours as needed. Use with spacer promethazine (PHENERGAN) 25 mg tablet Take 25 mg by mouth every 6 hours as needed. OXYGEN-AIR DELIVERY SYSTEMS ([employer] CLASSIC OXYGEN CONCENTRATOR MISC) 3 L by Misc.(Non-Drug; Combo Route) route nightly. diphenoxylate-atropine (LOMOTIL) 2.5-0.025 mg Tablet Take 1 tablet by mouth 4 times daily. DO NOT restarted this unless you are having diarrhea. 120 tablet 7 06/11/2014 Inhalational Spacing Device Spcr 2 puffs by Misc.(Non-Drug; Combo Route) route daily. cholecalciferol, Vitamin D3, 400 unit tablet Take 400 Units by mouth daily. MULTIVITAMIN ORAL Take 2 tablets by mouth daily. ASCORBATE CALCIUM (VITAMIN C ORAL) Take 1 tablet by mouth daily. loratadine (CLARITIN) 10 mg tabletIndications:Mult iple nodules of lung Take 10 mg by mouth daily. simvastatin (ZOCOR) 20 mg Tablet Take 20 [...] mouth daily. 90 tablet 3 08/19/2012 07/14/2021 eluxadoline 100 mg Tablet Take 100 mg [...] mouth every 4 hours. 10 mg 07/09/2016 dicyclomine (BENTYL) 10 mg CapsuleIndications:Chr onic abdominal pain Take 1 capsule by mouth 4 times daily. 120 capsule 11 05/24/2015 06/15/2016 fluconazole (DIFLUCAN) 100 mg TabletIndications:Thru sh Take [...] mg by mouth 3 times daily. 07/09/2016 ipratropium (ATROVENT) 0.06 % nasal spray USE [...] the clinical situation (Reference- Jarvik et al, [id number]). Findings: (Prevalence in patients without low back [...] mLs documented in this encounter Care Teams Tray Room Worker Relationship Specialty Start Date End Date Mary Alice Cage APRN PCP - General 10/12/11 11/12/18 documented as of this encounter
--- OUTSIDE RECORDS SUMMARY | 2024-07-24 00:52 | XMS_ITS | Encounter Summary ---
Author Organization [facility] [address] Care Team Providers Care Crimping Machine Operator Name Role Phone UintaMary Alice davis Rajendra ROY Primary Care Provider [phone] Reason for Visit * Auth/Cert Specialty Diagnoses / Procedures Referred By Chava alejo Referred To Contact Diagnoses Gerd monomity off meds 2 weeks Procedures PRO UPPER GI ENDOSCOPY, DIAGNOSTIC EGD, UPPER GI ENDOSCOPY Referral ID Status Reason Start Date Expiration Date Visits Re quested Visits Authorized [id number] 1 1 Encounter Details Date Type Department Care Team (Latest Contact Info) Description 10/26/2015 5:00 PM EDT Tech [place] [address] Justin Starkey MD [facility] DR [place]STROENTER[place] [address] Gastroesophageal reflux disease, esophagitis presence not specified [...] EDT HIGH-RESOLUTION ESOPHAGEAL MANOMETRY Poppy Mclaughlin [address] [place] [address] : 1960 STUDY DATE: 10-26-2015 PROVIDER: Justin Starkey, [place] ([id number]) INDICATION GERD; history of esophageal spasms METHODS [...] measured. Water swallows were provided after a 3-ws-5-minute accommodation period to assess LES function andfunction [...] on this study. Justin Starkey, PhD, MD construction foreman, [employer] Chief, Section of Gastroenterology and Hepatology [facility] [place] [address] V: [phone] F: [phone] CC/EC: PCP Patient documented in this encounter Plan of Treatment Not on file documented as of this encounter Visit Diagnoses Diagnosis Gastroesophageal reflux disease, esophagitis presence not specified documented in this encounter Care Teams Crimping Machine Operator Relationship Specialty Start Date End Date Mary Alice Cage APRN PCP - General 10/12/11 11/12/18 documented as of this encounter
--- OUTSIDE RECORDS SUMMARY | 2024-07-24 00:52 | XMS_ITS | Encounter Summary ---
[place] [address] Care Team Providers Care Motocross Racer Name Role Phone TarrantMary Alice davis Rajendra ROY Primary Care Provider [phone] Reason for Visit * Reason Onset Date Comments Medication Reaction 11/07/2015 Encounter Details Date Type Department Care Team (Late st Contact Info) Description 11/07/2015 Telephone [place] [address] Ej Gilbert, drywall finishing foreman Reaction Social History Tobacco Use Types Packs/Day [...] patient. Only phone number listed in chart [phone] disconnected. Patient sent [employer] message. documented in this encounter Plan of Treatment Not on file documented as of this encounter Visit Diagnoses Not on filedocumented in this encounter Care Teams Motocross Racer Relationship Specialty Start Date End Date MaryA lice Cage APRN PCP - General 10/12/11 11/12/18 documented as of this encounter
--- OUTSIDE RECORDS SUMMARY | 2024-07-24 00:52 | XMS_ITS | Encounter Summary ---
[place] [address] Care Team Providers Care Diamond Grinder Name Role Phone NilesMary Alice Rajendra ROY Primary Care Provider [phone] Reason for Visit * Auth/Cert Specialty Diagnoses / Procedures Referred By Chava alejo Referred To Contact Diagnoses Gerd monomity off meds 2 weeks Procedures PRO UPPER GI ENDOSCOPY, DIAGNOSTIC EGD, UPPER GI ENDOSCOPY Referral ID Status Reason Start Date Expiration Date Visits Re quested Visits Authorized [id number] 1 1 Encounter Details Date Type Department Care Team (Latest Contact Info) Description 10/26/2015 10:00 AM EDT Procedure [place] [address] Stef Paul RN Gastroesophageal reflux disease, esophagitis [...] UPPER GI ENDOSCOPY (10/26/2015 12:27 PM EDT) [facility] UPPER GI ENDOSCOPY [facility] Endoscopy Patient Name: Poppy Mlcaughlin ? Procedure Date: 10/26/2015 12:27 PM ? N: [id number] ? Date of : 1960 ? Age: 55 ? Order #: [id number] ? Procedure: ? Upper GI endoscopy Indications: [...] specified documented in this encounter Care Teams Diamond Grinder Relationship Specialty Start Date End Date Mary Alice Cage APRN PCP - General 10/12/11 11/12/18 documented as of this encounter
--- OUTSIDE RECORDS SUMMARY | 2024-07-24 00:52 | XMS_ITS | Encounter Summary ---
[place] [address] Care Team Providers Care Addiction Specialist Name Role Phone Mary Alice Cage APRN Primary Care Provider [phone] Reason for Referral * Consultation (Routine) - Closed Specialty Diagnoses / Procedures Referred By Chava alejo Referred To Contact Sleep Center Diagnoses ELO (obstructive sleep apnea) Procedures PRG POLYLSOM 6+ YRS SLEEP W CPAP W 4+ ADDL BELEM Emily Pacheco MD [facility] [place] [address] [facility] Sleep Medicine [address] [place] [address] Referral ID Status Reason Start Date Expiration Date V isits Requested Visits Authorized [id number] Closed Test Only 05/03/2016 05/03/2017 1 1 Reason for Visit * Consultation (Routine) - Closed Specialty Diagnoses / Procedures Referred By Chava alejo Referred To Contact Sleep Center Diagnoses Snoring Excessive daytime sleepiness Unrefreshed by Shobha Urbano APRN [facility] [place] [address] [facility] Sleep Medicine [address] [place] [address] Referral ID Status Reason Start Date Expiration Date V isits Requested Visits Authorized [id number] Closed Test Only 04/23/2016 04/23/2017 1 1 Encounter Details Date Type Department Care Team (Late st Contact Info) Description 04/25/2016 8:30 PM EDT Procedure visit Sleep Center at [address] [place] [address] Emily Mairno MD [facility] [place] [address] ELO (obstructive sleep apnea); Nocturnal hypoxemia Social [...] - scattered hypopneas, predominantly arousal-based AHI: 30 [facility] AHI: 0 (includes apneas + only [...] for longer toassess whether this impacts the [facility] AHI. Recommendations: 1. Consider CPAP trial (will order split) [facility] Sleep Disorders Center REPORT of Split-Night Polysomnography [...] 0.0 Index (Total): 0.0 4.8 4.8 0.0 *[facility]-defined hypopneas include only hypopneas with a >=4% oxygen desaturation. Includes hypopneas with an arousal or with a 3%-4% desaturation. [facility] Hypopneas not included. Periodic Breathing Total [...] 0.5 Index (Total): 1.0 24.1 25.1 0.2 *[facility]-defined hypopneas include only hypopneas with a >=4% oxygen desaturation. Includes hypopneas with an arousal or with a 3%-4% desaturation. [facility] Hypopneas not included. Periodic Breathing Total [...] Hypoxemia documented in this encounter Care Teams Addiction Specialist Relationship Specialty Start Date End Date Mary Alice Cage APRN PCP - General 10/12/11 11/12/18 documented as of this encounter
--- OUTSIDE RECORDS SUMMARY | 2024-07-24 00:52 | XMS_ITS | Encounter Summary ---
Author Organization [facility] [place] [address] Care Team Providers Care Seed Pelleter Name Role Phone CarltonMary Alice davis Rajendra ROY Primary Care Provider [phone] Reason for Visit * Reason Comments Follow-up Encounter Details Date Type Department Care Team (Late st Contact Info) Description 08/29/2015 1:00 PM EST Office [place] [address] Osmany Holloway MD [facility] [place] [address] Syncope, unspecified syncope type; PAH (pulmonary artery [...] overnight oximetry on 2L oxygen faxed to [facility]. * Osmany Holloway MD - 08/29/2015 [...] SYSTEMS ( CLASSIC OXYGEN CONCENTRATOR MISC) by [facility]Non-Drug; Combo Route) route nightly. ??? chlorpheniramine (CHLOR-TRIMETON) [...] ??The low-normal FEV1/FVC and disproportionate reduction in [id number] could represent a co-existent obstructive defect. ??The [...] classified documented in this encounter Care Teams Seed Pelleter Relationship Specialty Start Date End Date Mary Alice Cage APRN PCP - General 10/12/11 11/12/18 documented as of this encounter
--- OUTSIDE RECORDS SUMMARY | 2024-07-24 00:52 | XMS_ITS | Encounter Summary ---
Author Organization [facility] [place] [address] Care Team Providers Care V Block Saw Operator Name Role Phone SitkaMary Alice davis Rajendra ROY Primary Care Provider [phone] Reason for Visit * Reason Comments Right Leg Pain Encounter Details Date Type Department Care Team (Latest Contact Info) Description 03/27/2016 1:00 PM EDT Procedure [place] [address] Melchor Hartman V [facility] [place] [address] Spinal stenosis, lumbar region, without neurogenic claudication [...] medications: Omnipaque (contrast dye) and Dexamethasone Sodium Vlushoyng73 mg. During regular business hours, please phone [...] No 2. Patient states they have a newspaper delivery driver to transport after procedure? Yes 3. [...] the entire procedure. Melchor Hartman DO, MPH [facility]-subspecialty board certification in Pain Medicine Attending Physician-Pain Management Thank you for the referral! CC: Mary Alice Domingo, MANUELA [address] [place] [address] MARY ALICE DOMINGO, MANUELA [address] [place] [address] documented in this encounter Plan of Treatment [...] the entire procedure. Mel[facility] Hart[facility] DO, MPH [facility]sub[facility] certification in Pain Medicine Attending Physician-Pain Management Thank you for the referral! CC: Mary Alice Domingo APRN [address] [place] [address] MARY ALICE DOMINGO APRN [address] [place] [address] Melchor Hartman V, NEUROLOGY ORDERABLES documented in [...] mL documented in this encounter Care Teams V Block Saw Operator Relationship Specialty Start Date End Date Mary Alice Domingo APRN PCP - General 10/12/11 11/12/18 documented as of this encounter
--- OUTSIDE RECORDS SUMMARY | 2024-07-24 00:52 | XMS_ITS | Encounter Summary ---
[place] [address] Care Team Providers Care Certified Alcohol And Drug Counselor Name Role Phone Mary Alice Cage APRN Primary Care Provider [phone] Encounter Details Date Type Department Care Team (Late st Contact Info) Description 01/30/2016 Telephone [place] [address] Gardenia Bueno CMA GASTROENTEROLOGY DEPT Social History [...] Prior Authorization 4L Gastroenterology / [place] [address] Subscriber Insurance: optum rx Physician: Justin Starkey [...] filedocumented in this encounter Care Teams Certified Alcohol And Drug Counselor Relationship Specialty Start Date End Date Mary Alice Cage APRN PCP - General 10/12/11 11/12/18 documented as of this encounter
--- OUTSIDE RECORDS SUMMARY | 2024-07-24 00:52 | XMS_ITS | Encounter Summary ---
[place] [address] Care Team Providers Care Spring Fitter Helper Name Role Phone Mary Alice Cage APRN Primary Care Provider [phone] Encounter Details Date Type Department Care Team (Late st Contact Info) Description 01/27/2016 Telephone [place] [address] Eloise Nicole Social History Tobacco Use Types [...] filedocumented in this encounter Care Teams Spring Fitter Helper Relationship Specialty Start Date End Date Mary Alice Cage APRN PCP - General 10/12/11 11/12/18 documented as of this encounter
--- OUTSIDE RECORDS SUMMARY | 2024-07-24 00:52 | XMS_ITS | Encounter Summary ---
Author Organization [facility] Address [facility] [place] [address] Care Team Providers Care Switch Maker Name Role Phone Mary Alice Cage MANUELA Primary Care Provider [phone] Encounter Details Date Type Department Care Team (Latest Contact Info) Description 02/27/2016 2:15 PM EDT - 02/27/2016 11:59 PM EDT Hospital Encounter XRay at [address] [place] [address] Rios Acuna MD [facility] [place] [address] Low back pain, unspecified back pain laterality, [...] 6 hours as needed. OXYGEN-AIR DELIVERY SYSTEMS ( CLASSIC OXYGEN CONCENTRATOR MISC) 3 L by [facility].(Non-Drug; Combo Route) route nightly. diphenoxylate-atropine (LOMOTIL) 2.5-0.025 mg Tablet Take 1 tablet by mouth 4 times daily. DO NOT restarted this unless you are having diarrhea. 120 tablet 7 06/11/2014 Inhalational Spacing Device Spcr 2 puffs by [facility].(Non-Drug; Combo Route) route daily. cholecalciferol, Vitamin D3, [...] unspecified documented in this encounter Care Teams Switch Maker Relationship Specialty Start Date End Date Mary Alice Cage APRN PCP - General 10/12/11 11/12/18 documented as of this encounter
--- OUTSIDE RECORDS SUMMARY | 2024-07-24 00:52 | XMS_ITS | Encounter Summary ---
[place] [address] Care Team Providers Care Computer Aide Name Role Phone Niles Mary Alicepham Drew APRN Primary Care Provider [phone] Reason for Visit * Reason Comments Pain Management * Consultation (Routine) - Closed Specialty Diagnoses / Procedures Referred By Chava t Referred To Contact Pain Management Diagnoses Chronic right-sided low back pain without sciatica Rios Acuna MD [facility] [place] [address] [facility] [address] [place] [id number] Referral ID Status Reason Start Date Expiration Date V isits Requested Visits Authorized [id number] Closed Consult, Test & Treat 02/27/2016 02/26/2017 1 1 Encounter Details Date Type Department Care Team (Latest Contact Info) Description 03/27/2016 3:00 PM EDT Office [place] [address] Kim Forbes DO [facility] [place] [place] [address] Radiculopathy of lumbar region Social History Tobacco [...] benefits, and indications. KIM FORBES DO, MPH Filler Room Attendant of Anesthesiology/[facility] at [facility] Bluing Oven Tender, Pain Medicine Fellowship [employer] - Subspecialty board [...] unspecified documented in this encounter Care Teams Computer Aide Relationship Specialty Start Date End Date Mary Alice Cage APRN PCP - General 10/12/11 11/12/18 documented as of this encounter
--- OUTSIDE RECORDS SUMMARY | 2024-07-24 00:52 | XMS_ITS | Encounter Summary ---
Author Organization [facility] [place] [address] Care Team Providers Care Outside Deliverer Name Role Phone SierraMary Alice davis Rajenrda ROY Primary Care Provider Reason for Visit * Reason Comments Follow-up Encounter Details Date Type Department Care Team (Late st Contact Info) Description 12/09/2015 3:00 PM EDT Office [place] [address] Osmany Holloway MD [facility] [place] [address] COPD, moderate Social History Tobacco Use Types [...] by mouth nightly. ??? OXYGEN-AIR DELIVERY SYSTEMS ([facility] OXYGEN CONCENTRATOR [facility]) by [facility].(Non-Drug; Combo Route) route nightly. ??? chlorpheniramine (CHLOR-TRIMETON) [...] [facility].(Non-Drug; Combo Route) route daily. ??? fluticasone (FLONASE) [...] classified documented in this encounter Care Teams Outside Deliverer Relationship Specialty Start Date End Date Mary Alice Cage APRN PCP - General 10/12/11 11/12/18 documented as of this encounter
--- OUTSIDE RECORDS SUMMARY | 2024-07-24 00:52 | XMS_ITS | Encounter Summary ---
Author Organization [facility] [place] [address] Care Team Providers Care Stripping Cutter And Winder Name Role Phone BleckleyMary Alice davis Rajendra ROY Primary Care Provider [phone] Reason for Visit * Reason Comments Follow-up Encounter Details Date Type Department Care Team (Late st Contact Info) Description 03/19/2016 10:00 AM EDT Office [place] [address] Osmany Holloway MD [facility] [place] [address] Chronic diarrhea; COPD, moderate Social History Tobacco [...] 30 capsule 5 ??? Miscellaneous Medical Supply [facility] Face mask for nocturnal O2 1 each PRN ??? HYDROcodone-acetaminophen (VICODIN) 5-300 mg Tablet Take 1 tablet by mouth every 4 hours. 10 mg ??? simvastatin (ZOCOR) 20 mg Tablet Take 20 mg by mouth nightly. ??? OXYGEN-AIR DELIVERY SYSTEMS ([facility] OXYGEN CONCENTRATOR [facility]) by [facility].(Non-Drug; Combo Route) route nightly. ??? chlorpheniramine (CHLOR-TRIMETON) [...] Inhalational Spacing Device Spcr 2 puffs by [facility].(Non-Drug; Combo Route) route daily. ??? fluticasone (FLONASE) [...] 18 mg/dL [facility] Creatinine 1.20 0.70 - 1.20 mg/dL [facility] Comment: Please note that the pediatric reference intervals supplied above were not validated at [facility]. Results from pediatric patients should be interpreted in conjunction to the patient's age, height and muscle mass. Sodium 142 135 - 145 mmol/L [facility] [...] questions. Chloride 103 98 - 107 mmol/L [facility] Carbon Dioxide 24 22 - 31 mmol/L [facility] Anion Gap 15 5 - 15 mmol/L [facility] Calcium 9.5 8.5 - 10.5 mg/dL [facility] Est Glomerular Filtration Rate 47(L) >=60 [facility] Comment: This estimated GFR [...] the following links into your internet browser. [email or web address] Blood specimen (specimen) 03/19/2016 11:27 AM EDT 03/19/2016 11:41 AM EDT Narrative Resulting Agency Comment Spec In Lab Osmany Overton MD CHEMISTRY ORDERABLE S [facility] [place] [address] documented in this encounter Visit Diagnoses Diagnosis Chronic diarrhea Diarrhea COPD, moderate Chronic airway obstruction, not elsewhere classified documented in this encounter Care Teams Stripping Cutter And Winder Relationship Specialty Start Date End Date Mary Alice Cage APRN PCP - General 10/12/11 11/12/18 documented as of this encounter
--- OUTSIDE RECORDS SUMMARY | 2024-07-24 00:52 | XMS_ITS | Encounter Summary ---
[place] [address] Care Team Providers Care Silk Screen Painter Name Role Phone HaleMary Alice davis Rajendra ROY Primary Care Provider [phone] Encounter Details Date Type Department Care Team (Late st Contact Info) Description 11/24/2015 [place] [phone] Chandni Hager MD [facility] [place] [address] Social History Tobacco Use Types Packs/Day Years [...] on 11/21 by the order of her blueprint clerk. She called that her Zio came off after shower yesterday. She taped the bottom part of it. Wondering what se should do. She did call somebody yesterday and was expecting a call today (but it didn't happen). I will forward the note and talk to Zio department tomorrow. Her mom's apartment number is [phone] (she is leaving some time tomorrow to got there). Will forward note to Dr. Holloway as well. documented in this encounter Plan of Treatment Not on file documented as of this encounter Visit Diagnoses Not on filedocumented in this encounter Care Teams Silk Screen Painter Relationship Specialty Start Date End Date Mary Alice Cage APRN PCP - General 10/12/11 11/12/18 documented as of this encounter
--- OUTSIDE RECORDS SUMMARY | 2024-07-24 00:52 | XMS_ITS | Encounter Summary ---
Author Organization [facility] Address [facility] [place] [address] Care Team Providers Care Automatic Clipper And Stripper Name Role Phone Mary Alice Cage MANUELA Primary Care Provider [phone] Encounter Details Date Type Department Care Team (Latest Contact Info) Description 11/22/2015 10:00 AM EDT - 11/22/2015 11:59 PM EDT Hospital Encounter Non-[place]vasive [place] [address] Osmany Holloway MD [facility] PULMONARY MEDICINE [place] [id number] Syncope, unspecified syncope type Discharge Disposition: Home [...] L by Misc.(Non-Drug; Combo Route) route nightly. chlorpheniramine (CHLOR-TRIMETON) 4 [...] by mouth every 6 hours as needed. cholecalciferol, Vitamin D3, 400 unit tablet Take [...] type documented in this encounter Care Teams Automatic Clipper And Stripper Relationship Specialty Start Date End Date Mary Alice Cage APRN PCP - General 10/12/11 11/12/18 documented as of this encounter
--- OUTSIDE RECORDS SUMMARY | 2024-07-24 00:52 | XMS_ITS | Encounter Summary ---
[place] [address] Care Team Providers Care Shop Router Name Role Phone Mary Alice Cage MANUELA Primary Care Provider [phone] Reason for Visit * Reason Onset Date Comments Results 11/14/2015 Encounter Details Date Type Department Care Team (Late st Contact Info) Description 11/14/2015 Telephone [place] [address] Edgardo Paul, RN Results Social History Tobacco [...] patent provided in her VM from 11/11/15 ([phone]), no answer. LM that (per 11/02/15 letter [...] filedocumented in this encounter Care Teams Shop Router Relationship Specialty Start Date End Date Mary Alice Cage APRN PCP - General 10/12/11 11/12/18 documented as of this encounter
--- OUTSIDE RECORDS SUMMARY | 2024-07-24 00:52 | XMS_ITS | Encounter Summary ---
Author Organization [facility] [place] [address] Care Team Providers Care Plant Production Manager Name Role Phone Mary Alice Cage APRN Primary Care Provider [phone] Encounter Details Date Type Department Care Team (Latest Contact Info) Description 10/31/2015 11:00 PM EDT Tech [place] [address] Justin Starkey MD [facility] [place] [address] Gastroesophageal reflux disease, esophagitis presence not specified [...] Starkey MD - 11/08/2015 11:57 AM EDT [facility] WIRELESS pH CAPSULE STUDY AFTER UPPER ENDOSCOPY Poppy Mclaughlin Female, 55 y.o., 1960 , SR None PCP: Mary Ailce Cage ICT DEVELOPER: None STUDY DATES: 10/26/15 to 10/28/15 INTERPRETATION DATE: 11/06/15 PROVIDER: [place] ([id number]) INDICATION Reflux symptoms. Preoperative evaluation. NOTE: This [...] 14.72) Day Two Calculated DeMeester Score: 3.9 Cvisz-Paczb-Iegw DeMeester Score (Total): 13.0 Zbwsf-Pdwel-Iqoe (Total) Fraction of Time with pH Less Than 4%: 4.5% Day One Symptoms Association Probability (SAP) for Heartburn: 0% Chest pain: 0% Regurgitation: 0% Day Two SAP for Heartburn: 0% Chest pain: 0% Regurgitation: 0% Wklxc-Dbdkp-Fuas SAP for Heartburn: 0% Chest pain: 0% [...] 95% are positive. Justin Starkey, PhD, MD bisque kiln drawer, [facility] [employer] Chief, Section of Gastroenterology and Hepatology [facility] [place] [address] V: [phone] F: [phone] BEL/mian EC/CC: PCP - staff msg copy 11/07/15 Patient - mail copy 11/07/15 documented in this encounter Plan of Treatment Not on file documented as of this encounter Visit Diagnoses Diagnosis Gastroesophageal reflux disease, esophagitis presence not specified documented in this encounter Care Teams Plant Production Manager Relationship Specialty Start Date End Date Mary Alice Cage APRN PCP - General 10/12/11 11/12/18 documented as of this encounter
--- OUTSIDE RECORDS SUMMARY | 2024-07-24 00:52 | XMS_ITS | Encounter Summary ---
Author Organization [facility] [address] Care Team Providers Care Pilates Coordinator Name Role Phone AllendaleMary Alice davis Rajendra ROY Primary Care Provider [phone] Encounter Details Date Type Department Care Team (Latest Contact Info) Description 12/09/2015 2:30 PM EDT - 12/09/2015 11:59 PM EDT Hospital En[place] [address] COPD, moderate Discharge Disposition: Home Social History [...] OXYGEN CONCENTRATOR MISC) 3 L by [facility].(Non-Drug; Combo Route) route nightly. diphenoxylate-atropine (LOMOTIL) 2.5-0.025 mg Tablet Take 1 tablet by mouth 4 times daily. DO NOT restarted this unless you are having diarrhea. 120 tablet 7 06/11/2014 Inhalational Spacing Device Spcr 2 puffs by [facility].(Non-Drug; Combo Route) route daily. cholecalciferol, Vitamin D3, [...] mouth daily. 90 tablet 3 08/19/2012 07/14/2021 rOPINIRole (REQUIP) 0.5 mg Tablet Take 0.5 [...] classified documented in this encounter Care Teams Pilates Coordinator Relationship Specialty Start Date End Date Mary Alice Cage APRN PCP - General 10/12/11 11/12/18 documented as of this encounter
--- OUTSIDE RECORDS SUMMARY | 2024-07-24 00:52 | XMS_ITS | Encounter Summary ---
Author Organization [facility] [address] Care Team Providers Care Distribution Operations Supervisor Name Role Phone RavalliMary Alice davis Rajendra ROY Primary Care Provider [phone] Encounter Details Date Type Department Care Team (Latest Contact Info) Description 03/19/2016 9:15 AM EDT - 03/19/2016 11:59 PM EDT Hospital Encounter [place] [address] COPD, moderate Discharge Disposition: Home Social History [...] Sig Dispensed Refills Start Date End Date albuterol (PROVENTIL) 2.5 mg /3 mL (0.083 [...] OXYGEN-AIR DELIVERY SYSTEMS ( CLASSIC OXYGEN CONCENTRATOR MIS) 3 L by [facility] [...] 05/16/2016 sulfamethoxazole-trim ethoprim (BACTRIM DS) 800-160 mg TabletIndications:SPACE OPERATIONS OFFICER D, moderate Take 1 tablet by [...] 10 mg 07/09/2016 dicyclomine (BENTYL) 10 mg CapsuleIndications:Ch ronic abdominal pain Take 1 capsule by mouth 4 times daily. 120 capsule 11 05/24/2015 06/15/2016 fluconazole (DIFLUCAN) 100 mg TabletIndications:Thr ush Take [...] classified documented in this encounter Care Teams Distribution Operations Supervisor Relationship Specialty Start Date End Date Mary Alice Cage APRN PCP - General 10/12/11 11/12/18 documented as of this encounter
--- OUTSIDE RECORDS SUMMARY | 2024-07-24 00:52 | XMS_ITS | Encounter Summary ---
Author Organization [facility] [address] Care Team Providers Care Mri Ct Tech Name Role Phone Mary Alice Cage APRN Primary Care Provider [phone] Reason for Referral * Consultation (Routine) - Specialty Diagnoses / Procedures Referred By Chava alejo Referred To Contact Sleep Center Diagnoses PAH (pulmonary artery hypertension) Osmany Holloway MD [facility] [place] [address] [facility] [address] [place] [address] Referral ID Status Reason Start Date Expiration Date V isits Requested Visits Authorized [id number] Consult, Test & Treat Connection Center 12/23/2015 12/22/2016 5 5 Encounter Details Date Type Department Care Team (Late st Contact Info) Description 12/23/2015 Orders [place] [address] Osmany Holloway MD [facility] [place] [address] PAH (pulmonary artery hypertension) Social [...] diseases documented in this encounter Care Teams Mri Ct Tech Relationship Specialty Start Date End Date Mary Alice Cage APRN PCP - General 10/12/11 11/12/18 documented as of this encounter
--- OUTSIDE RECORDS SUMMARY | 2024-07-24 00:52 | XMS_ITS | Encounter Summary ---
[place] [address] Care Team Providers Care Hand Candle Molder Name Role Phone TraverseMary Alice davis Rajendra ROY Primary Care Provider [phone] Reason for Visit * Reason Onset Date Comments Results 11/03/2015 Encounter Details Date Type Department Care Team (Late st Contact Info) Description 11/03/2015 Telephone [place] [address] Lyndsey Alejandro, RN Results Social History Tobacco [...] filedocumented in this encounter Care Teams Hand Candle Molder Relationship Specialty Start Date End Date Mary Alice Cage APRN PCP - General 10/12/11 11/12/18 documented as of this encounter
--- OUTSIDE RECORDS SUMMARY | 2024-07-24 00:52 | XMS_ITS | Encounter Summary ---
[place] [address] Care Team Providers Care Retrofit Installer Name Role Phone [place] Mary Alicepham Drew APRN Primary Care Provider [phone] Reason for Referral * Consultation (Routine) - Closed Specialty Diagnoses / Procedures Referred By Contluisa t Referred To Contact Pain Management Diagnoses Chronic right-sided low back pain without sciatica Rios Acuna MD [facility] [place] [address] [facility] [address] [place] [address] Referral ID Status Reason Start Date Expiration Date V isits Requested Visits Authorized [id number] Closed Consult, Test & Treat 02/27/2016 02/26/2017 1 1 Reason for Visit * Reason Comments Back Pain lower back pain Right Leg Pain upper thigh Encounter Details Date Type Department Care Team (Late st Contact Info) Description 02/27/2016 3:20 PM EDT Office [place] [address] Rios Acuna MD [facility] [place] [place] [address] Chronic right-sided low back pain without sciatica [...] sciatica documented in this encounter Care Teams Retrofit Installer Relationship Specialty Start Date End Date Mary Alice Cage APRN PCP - General 10/12/11 11/12/18 documented as of this encounter
--- OUTSIDE RECORDS SUMMARY | 2024-07-24 00:52 | XMS_ITS | Encounter Summary ---
[place] [address] Care Team Providers Care Gender Studies Professor Name Role Phone DurhamMary Alice davis Rajendra ROY Primary Care Provider [phone] Encounter Details Date Type Department Care Team (Late st Contact Info) Description 05/03/2016 Orders Only Sleep Center at [facility] [address] [place] [address] Annie Marino MD [facility] [place] [address] Social History Tobacco Use Types Packs/Day Years [...] No Requires 1:1 Care: No Requires Parent/Caregiver: [place] of Parent/Caregiver staying: Using Home Oxygen: YES [...] on filedocumented in this encounter Care Teams Gender Studies Professor Relationship Specialty Start Date End Date Mary Alice Cage APRN PCP - General 10/12/11 11/12/18 documented as of this encounter
--- OUTSIDE RECORDS SUMMARY | 2024-07-24 00:52 | XMS_ITS | Encounter Summary ---
[place] [address] Care Team Providers Care Police Judge Name Role Phone NilesMary Alice Rajendra ROY Primary Care Provider [phone] Reason for Visit * Auth/Cert Specialty Diagnoses / Procedures Referred By Chava alejo Referred To Contact Diagnoses Gerd monomity off meds 2 weeks Procedures PRO UPPER GI ENDOSCOPY, DIAGNOSTIC EGD, UPPER GI ENDOSCOPY Referral ID Status Reason Start Date Expiration Date Visits Re quested Visits Authorized [id number] 1 1 Encounter Details Date Type Department Care Team (Latest Contact Info) Description 10/26/2015 1:00 PM EDT Procedure [place] [address] Stef Paul RN Gastroesophageal reflux disease, esophagitis [...] of Donald procedure and use of the aircraft engine dismantler. documented in this encounter Plan of Treatment Not on file documented as of this encounter Visit Diagnoses Diagnosis Gastroesophageal reflux disease, esophagitis presence not specified documented in this encounter Care Teams Police Judge Relationship Specialty Start Date End Date Mary Alice Cage APRN PCP - General 10/12/11 11/12/18 documented as of this encounter
--- OUTSIDE RECORDS SUMMARY | 2024-07-24 00:52 | XMS_ITS | Encounter Summary ---
[place] [address] Care Team Providers Care Rolling Up Machine Operator Name Role Phone New LondonMary Alice davis MANUELA Primary Care Provider [phone] Encounter Details Date Type Department Care Team (Late st Contact Info) Description 01/27/2016 Orders [place] [address] Lucretia Moreno LPN Low back pain, non-specific [...] non-specific documented in this encounter Care Teams Rolling Up Machine Operator Relationship Specialty Start Date End Date Mary Alice Cage APRN PCP - General 10/12/11 11/12/18 documented as of this encounter
--- OUTSIDE RECORDS SUMMARY | 2024-07-24 00:52 | XMS_ITS | Encounter Summary ---
Author Organization [facility] [address] Care Team Providers Care Auto Rental Clerk Name Role Phone Mary Alice Cage APRN Primary Care Provider Reason for Visit * Reason Comments Medication Refill Encounter Details Date Type Department Care Team (Late st Contact Info) Description 11/26/2015 Ref[place] [address] Justin Starkey MD [facility] [place] [address] Gastroesophageal reflux disease, esophagitis presence not specified [...] specified documented in this encounter Care Teams Auto Rental Clerk Relationship Specialty Start Date End Date Mary Alice Cage APRN PCP - General 10/12/11 11/12/18 documented as of this encounter
--- OUTSIDE RECORDS SUMMARY | 2024-07-24 00:52 | XMS_ITS | Encounter Summary ---
[place] [address] Care Team Providers Care Hotel Maintenance Engineer Name Role Phone BullittMary Alice davis Rajendra ROY Primary Care Provider [phone] Reason for Visit * Reason Onset Date Comments Follow-up 12/23/2015 Encounter Details Date Type Department Care Team (Late st Contact Info) Description 12/23/2015 Tele[place] [address] Peg Abel, RN Follow-up Social History Tobacco [...] on filedocumented in this encounter Care Teams Hotel Maintenance Engineer Relationship Specialty Start Date End Date Mary Alice Cage APRN PCP - General 10/12/11 11/12/18 documented as of this encounter
--- OUTSIDE RECORDS SUMMARY | 2024-07-24 00:52 | XMS_ITS | Encounter Summary ---
Author Organization [facility] [address] Care Team Providers Care Order Checker Packer Processer Name Role Phone EarlyMary Alice davis Rajendra ROY Primary Care Provider [phone] Reason for Visit * Reason Comments Follow-up Encounter Details Date Type Department Care Team (Latest Contact Info) Description 01/24/2016 9:00 AM EDT Office Visit [place] [address] Justin Starkey MD [facility] DR [place] [address] Gastroesophageal reflux disease, esophagitis presence not specified; [...] SR None PCP: Mary Alice Cage APRN SUPERVISOR SINTERING PLANT: None REASON FOR VISIT This is a [...] HISTORY 1. Emergency hernia repair May 2011, [place]. 2. Cholecystectomy 11/24/12. 3. Cervical spine fusion surgery August 2013. 4. Lumbar diskectomy 08/2014. HABITS Positive tobacco. No alcohol for sdmk-qud-z-half years. FAMILY HISTORY Noncontributory. SOCIAL HISTORY for [...] EGD 10/26/15: normal; Z-line at 43. 9. Ehlch-uqwjl-mlzp wireless pH capsule 10/26/15 to 10/28/15 off [...] WITH PATIENT Total Minutes: 40 Minutes of Uyiq-ii-Iuzb Counseling: The entire visit was spent in xffx-ec-pvkv counseling and coordination of care. Justin Starkey, PhD, MD operating room nurse, Formerly [facility], [facility] [employer] Chief, Section of Gastroenterology and Hepatology [place] [address] V: [phone] F: [phone] BEL/mian CC/EC: PCP - staff msg copy 01/27/16 [facility] Hairpiece Stylist - staff msg copy 01/27/16 documented in this encounter Plan of Treatment Not on file documented as of this encounter Visit Diagnoses Diagnosis Gastroesophageal reflux disease, esophagitis presence not specified Chronic abdominal pain Abdominal pain, unspecified site Irritable bowel syndrome with diarrhea Irritable bowel syndrome documented in this encounter Care Teams Order Checker Packer Processer Relationship Specialty Start Date End Date Mary Alice Cage APRN PCP - General 10/12/11 11/12/18 documented as of this encounter
--- OUTSIDE RECORDS SUMMARY | 2024-07-24 00:52 | XMS_ITS | Encounter Summary ---
[place] [address] Care Team Providers Care Livestock Yard Supervisor Name Role Phone MecostaMary Alice davis Rajendra ROY Primary Care Provider [phone] Encounter Details Date Type Department Care Team (Latest Contact Info) Description 11/25/2015 12:30 PM EDT - 11/25/2015 11:59 PM EDT Hospital Encounter Non-[place] [address] Syncope, unspecified syncope type Discharge [...] CLASSIC OXYGEN CONCENTRATOR MISC) 3 L by [facility].(Non-Drug; Combo Route) route nightly. diphenoxylate-atropine (LOMOTIL) 2.5-0.025 mg Tablet Take 1 tablet by mouth 4 times daily. DO NOT restarted this unless you are having diarrhea. 120 tablet 7 06/11/2014 Inhalational Spacing Device Spcr 2 puffs by [facility].(Non-Drug; Combo Route) route daily. cholecalciferol, Vitamin D3, [...] 0.5 mg by mouth nightly. 11/15/2015 05/16/2016 [employer] MiscIndications:PAH (pulmonary artery hypertension) Face [...] type documented in this encounter Care Teams Livestock Yard Supervisor Relationship Specialty Start Date End Date Mary Alice Cage APRN PCP - General 10/12/11 11/12/18 documented as of this encounter
--- OUTSIDE RECORDS SUMMARY | 2024-07-24 00:52 | XMS_ITS | Encounter Summary ---
[place] [address] Care Team Providers Care Manager Payroll Name Role Phone NeoshoMary Alice davis Rajendra ROY Primary Care Provider [phone] Reason for Visit * Reason Onset Date Comments Other 10/20/2015 Explanation of A ppts Encounter Details Date Type Department Care Team (Late st Contact Info) Description 10/20/2015 Telephone [place] [address] Rosaura Amezcua Other (Explanation of [...] as there were four appts on her [employer] page. Iwent over each GI appt, explained reason for each, and time for each: HREM, Donald/EGD, tech appt w BEL (told her not to show up for this and explained why), fup appt w BEL in November. Pt also asked about returning Donald passenger service supervisor and I reiterated what I told her when we booked the appt and what is in the letter she received: that the passenger service supervisor needs to be returned in person within 72h of capsule placement. I also reminded pt that her letter sent to her in Sep had her arrival and appt times as well as prep instructions, a floor map showing her the way to endo and a floor map showing her where to return the Donald passenger service supervisor. Pt said she wrote all this down and had her letter. -bcj documented in this encounter Plan of Treatment Not on file documented as of this encounter Visit Diagnoses Not on filedocumented in this encounter Care Teams Manager Payroll Relationship Specialty Start Date End Date Mary Alice Cage APRN PCP - General 3/2/12 4/3/19 documented as of this encounter
--- OUTSIDE RECORDS SUMMARY | 2024-07-24 00:52 | XMS_ITS | Encounter Summary ---
Author Organization [facility] [place] [address] Care Team Providers Care Plant Supervisor Name Role Phone PonceMary Alice davis MANUELA Primary Care Provider [phone] Encounter Details Date Type Department Care Team (Late st Contact Info) Description 03/27/2016 Telephone [place] [address] Myrna Contreras MD [facility] [place] [address] Social History Tobacco Use Types Packs/Day Years [...] on filedocumented in this encounter Care Teams Plant Supervisor Relationship Specialty Start Date End Date Mary Alice Cage APRN PCP - General 10/12/11 11/12/18 documented as of this encounter
--- OUTSIDE RECORDS SUMMARY | 2024-07-24 00:52 | XMS_ITS | Encounter Summary ---
[place] [address] Care Team Providers Care Track Walker Name Role Phone Mary Alice Cage APRN Primary Care Provider [phone] Reason for Visit * Reason Onset Date Comments Follow-up 12/13/2015 Encounter Details Date Type Department Care Team (Late st Contact Info) Description 12/13/2015 [place] [address] Peg Abel, RN Follow-up Social History Tobacco [...] filedocumented in this encounter Care Teams Track Walker Relationship Specialty Start Date End Date Mary Alice Cage APRN PCP - General 10/12/11 11/12/18 documented as of this encounter
--- OUTSIDE RECORDS SUMMARY | 2024-07-24 00:52 | XMS_ITS | Encounter Summary ---
[place] [address] Care Team Providers Care Powdered Sugar Supervisor Name Role Phone ThayerMary Alice davis MANUELA Primary Care Provider [phone] Encounter Details Date Type Department Care Team (Late st Contact Info) Description 04/23/2016 Orders Only Sleep Center at [facility] [address] [place] [address] Shobha Duke APRN [facility] [place] [address] Social History Tobacco Use Types Packs/Day Years [...] on filedocumented in this encounter Care Teams Powdered Sugar Supervisor Relationship Specialty Start Date End Date Mary Alice Cage APRN PCP - General 10/12/11 11/12/18 documented as of this encounter
--- OUTSIDE RECORDS SUMMARY | 2024-07-24 00:52 | XMS_ITS | Encounter Summary ---
Author Organization [facility] [address] Care Team Providers Care Methods Time Analyst Name Role Phone Mary Alice Cage APRN Primary Care Provider [phone] Reason for Referral * Consultation (Routine) - Closed Specialty Diagnoses / Procedures Referred By Contac t Referred To Contact Sleep Center Diagnoses Snoring Excessive daytime sleepiness Unrefreshed by sleep Shobha Duke APRN [facility] [place] [address] [facility] Sleep Medicine [address] [place] [address] Referral ID Status Reason Start Date Expiration Date V isits Requested Visits Authorized [id number] Closed Test Only 04/23/2016 04/23/2017 1 1 Reason for Visit * Consultation (Routine) - Specialty Diagnoses / Procedures Referred By Contac t Referred To Contact Sleep Center Diagnoses PAH (pulmonary artery hypertension) Osmany Holloway MD [facility] [place] [address] [facility] Sleep Medicine [address] [place] [address] Referral ID Status Reason Start Date Expiration Date V isits Requested Visits Authorized [id number] Consult, Test & Treat Connection Center 12/23/2015 12/22/2016 5 5 Encounter Details Date Type Department Care Team (Late st Contact Info) Description 04/23/2016 10:00 AM EDT Office Visit Sleep Center at [address] [place] [address] Shobha Duke, MANUELA [facility] DR [place]EP [place] [address] Snoring; Excessive daytime sleepiness; Unrefreshed by sleep [...] HPI continues below. Daytime Symptoms: Patient-reported scores: [place]: 13 MEAGAN 24 Other Associated Sleep Symptoms: [...] yes, sometimes but when she's trying to lieva if she overextends LE edema: yes, bilateral [...] CHOLANGIOGRAM performed by Abel Carlton MD at [facility] MAIN OR ??? Pro arthrodesis, ant interbody,decompression; cervical below c2 09/08/2013 ARTHRODESIS, ANT INTERBODY,DECOMPRESSION; CERVICAL BELOW C2 performed by Rios Acuna MD at [facility] MAIN OR ??? Pro arthrd ant interdy cervcl belw c2 ea addl ntrspc 09/08/2013 @ARTHRODESIS ANT INTERBDY CERVCL BELOW C2 EA ADDL INTRSPACE performed by Rios Acuna MD at [facility] MAIN OR ??? Pro anterior instrumentation 2-3 vertebral segments 09/08/2013 @ANT. SPINAL INSTRUMENTATION, 2-3 VERTEBRA, SEGMENTED performed by Rios Acuna MD at [facility] [place] ??? Pro allograft for spine surgery only structural 09/08/2013 ALLOGRAFT FOR SPINE SURGERY ONLY; STRUCTUAL performed by Rios Acuna MD at [facility] MAIN OR ??? Pro decompress spinal cord, 1 seg Right 08/31/2014 TRANSPEDICULAR LUMBAR DECOMPRESSION SPINAL CORD,EQUINA & NERVE ROOTS, ONE LVL. performed by Rios Acuna MD at [facility] MAIN OR ??? Right 08/31/2014 MODIFIER L4 performed by Rios Acuna MD at [facility] MAIN OR ??? Right 08/31/2014 MODIFIER L5 performed by Rios Acuna MD at [facility] OR ??? Pro upper gi endoscopy, diagnostic N/A 10/26/2015 EGD, UPPER GI ENDOSCOPY performed by Apolinar Sepulveda MD at [facility] ENDOSCOPY ??? Pro upper gi endoscopy, biopsy N/A 10/26/2015 UPPER GASTROINTESTINAL ENDOSCOPY,WITH BIOPSY SINGLE OR MULTIPLE performed by Apolinar Sepulveda MDat [facility] ENDOSCOPY Past Medical History: Past Medical History [...] 30 capsule 5 ??? Miscellaneous Medical Supply [facility] Face mask for nocturnal O2 1 each PRN ??? simvastatin (ZOCOR) 20 mg Tablet Take 20 mg by mouth nightly. ??? OXYGEN-AIR DELIVERY SYSTEMS ([facility] OXYGEN CONCENTRATOR [facility]) by [facility].(Non-Drug; Combo [...] Inhalational Spacing Device Spcr 2 puffs by [facility].(Non-Drug; Combo Route) route daily. ??? fluticasone (FLONASE) [...] that study results can be called to [phone] (M) and a detailed message left if [...] APRN Cc: Osmany Holloway MD, Mary Alice Cage APRN documented in this encounter Plan of [...] disturbances documented in this encounter Care Teams Methods Time Analyst Relationship Specialty Start Date End Date Mary Alice Cage APRN PCP - General 10/12/11 11/12/18 documented as of this encounter
--- OUTSIDE RECORDS SUMMARY | 2024-07-24 00:52 | XMS_ITS | Encounter Summary ---
[place] [address] Care Team Providers Care Stepdown Nurse Name Role Phone DeweyMary Alice davis Rajendra ROY Primary Care Provider [phone] Encounter Details Date Type Department Care Team (Late st Contact Info) Description 09/16/2015 [place] [address] Ines Lopez, RN Social History Tobacco Use [...] EST Order for overnight oximetry faxed to [facility]. Order for face mask for oxygen faxed to [facility]. documented in this encounter Plan of Treatment Not on file documented as of this encounter Visit Diagnoses Diagnosis COPD, moderate Chronic airway obstruction, not elsewhere classified PAH (pulmonary artery hypertension) Other chronic pulmonary heart diseases Syncope, unspecified syncope type documented in this encounter Care Teams Stepdown Nurse Relationship Specialty Start Date End Date Mary Alice Cage APRN PCP - General 10/12/11 11/12/18 documented as of this encounter
--- OUTSIDE RECORDS SUMMARY | 2024-07-24 00:52 | XMS_ITS | Encounter Summary ---
Author Organization [facility] [address] Care Team Providers Care Customs Inspector Name Role Phone CalhounMary Alice davis Rajendra ROY Primary Care Provider [phone] Reason for Visit * Auth/Cert Specialty Diagnoses / Procedures Referred By Chava alejo Referred To Contact Diagnoses Gerd monomity off meds 2 weeks Procedures PRO UPPER GI ENDOSCOPY, DIAGNOSTIC EGD, UPPER GI ENDOSCOPY Referral ID Status Reason Start Date Expiration Date Visits Re quested Visits Authorized [id number] 1 1 Encounter Details Date Type Department Care Team (Late st Contact Info) Description 10/26/2015 1:00 PM EDT - 10/26/2015 1:30 PM EDT [place] [address] Apolinar Sepulveda MD [facility] [place] [address] EGD, UPPER GI ENDOSCOPY (WRVU 2.09) Social [...] Other Instructions Be sure to carry your labels molder within 3 feet at all times . [...] better as expected. Saturday-Saturday Same Day Endo [phone] Otherwise contact [phone] and ask to speak to the channel development manager rugby union footballer Ade Paul RN [phone] if any problems with labels molder Follow-up care is a liriano part of [...] [facility]-Drug; Combo Route) route nightly. chlorpheniramine (CHLOR-TRIMETON) 4 [...] [facility].(Non-Drug; Combo Route) route daily. cholecalciferol, Vitamin D3, [...] Sig Dispense Refill ??? Miscellaneous Medical Supply [facility] Face mask for nocturnal O2 1 each PRN ??? HYDROcodone-acetaminophen (VICODIN) 5-300 mg Tablet Take 1 tablet by mouth every 4 hours. 10 mg ??? simvastatin (ZOCOR) 20 mg Tablet Take 20 mg by mouth nightly. ??? OXYGEN-AIR DELIVERY SYSTEMS ( CLASSIC OXYGEN CONCENTRATOR [facility]) by [facility].(Non-Drug; Combo Route) route nightly. ??? chlorpheniramine (CHLOR-TRIMETON) [...] [facility].(Non-Drug; Combo Route) route daily. ??? fluticasone (FLONASE) [...] PM EDT 10/26/2015 1:51 PM EDT Narrative [facility] - 10/26/2015 1:51 PM EDT Specimen requisition ordered. ??Separate Pathology report to follow Apolinar Sepulveda MD PATHOLOGY/CYTOLOGY ORDERABLES [facility] [place] [address] * Specimen to Pathology (surgical or derm) (10/26/2015 1:49 PM EDT) AP Specimen 10/26/2015 1:49 PM EDT 10/26/2015 1:49 PM EDT Narrative [facility] - 10/26/2015 1:49 PM EDT Specimen requisition ordered. ??Separate Pathology report to follow Apolinar Sepulveda MD PATHOLOGY/CYTOLOGY ORDERABLES Performing Organization Address [facility] [place] [address] * Specimen to Pathology (surgical or derm) (10/26/2015 1:48 PM EDT) AP Specimen 10/26/2015 1:48 PM EDT 10/26/2015 1:48 PM EDT Narrative [facility] - 10/26/2015 1:48 PM EDT Specimen requisition ordered. ??Separate Pathology report to follow Apolinar Sepulveda MD PATHOLOGY/CYTOLOGY ORDERABLES Performing Organization Address [facility] de Phone Number [facility] [place] [address] * Surgical Pathology Report (10/26/2015 1:32 PM EDT) Pathologist [facility] Final Diagnosis [id number] ? Location: The signing pathologist has (i) [...] sing: (T1) ??ejr 10/28/2015 12:00 PM EDT [facility] GI Biopsy 10/26/2015 1:32 PM EDT 10/26/2015 1:32 PM EDT GI Biopsy 10/26/2015 1:32 PM EDT 10/26/2015 1:32 PM EDT Apolinar Sepulveda MD PATHOLOGY/CYTOLOGY ORDERABLES Performing Organization Address [facility] Co de Phone Number [facility] [place] [address] * Specimen to Pathology (surgical or derm) (10/26/2015 1:32 PM EDT) AP Specimen 10/26/2015 1:32 PM EDT 10/26/2015 1:32 PM EDT Narrative [facility] - 10/26/2015 1:32 PM EDT Specimen requisition ordered. ??Separate Pathology report to follow Apolinar Sepulveda MD PATHOLOGY/CYTOLOGY ORDERABLES Performing Organization Address [facility] [place] [address] * Specimen to Pathology (surgical or derm) (10/26/2015 1:32 PM EDT) AP Specimen 10/26/2015 1:32 PM EDT 10/26/2015 1:32 PM EDT Narrative [facility] - 10/26/2015 1:32 PM EDT Specimen requisition ordered. ??Separate Pathology report to follow Apolinar Sepulveda MD PATHOLOGY/CYTOLOGY ORDERABLES [facility] [place] [address] documented in this encounter Visit Diagnoses Not [...] time) documented in this encounter Care Teams Customs Inspector Relationship Specialty Start Date End Date Mary Alice Cage APRN PCP - General 10/12/11 11/12/18 documented as of this encounter
--- OUTSIDE RECORDS SUMMARY | 2024-07-24 00:53 | XMS_ITS | Encounter Summary ---
Author Organization [facility] [address] Care Team Providers Care Top Taper Machine Name Role Phone HardinMary Alice davis Rajendra ROY Primary Care Provider [phone] Encounter Details Date Type Department Care Team (Latest Contact Info) Description 08/29/2015 11:06 AM EST - 08/29/2015 11:59 PM [facility] En[place] [address] COPD, moderate Discharge Disposition: Home Social History [...] classified documented in this encounter Care Teams Top Taper Machine Relationship Specialty Start Date End Date Mary Alice Cage APRN PCP - General 10/12/11 11/12/18 documented as of this encounter
--- OUTSIDE RECORDS SUMMARY | 2024-07-24 00:53 | XMS_ITS | Encounter Summary ---
[place] [address] Care Team Providers Care Cut Off Saw Grader Name Role Phone Mary Alice Cage MANUELA Primary Care Provider [phone] Reason for Visit * Reason Onset Date Comments Advice Only 12/21/2014 Encounter Details Date Type Department Care Team (Late st Contact Info) Description 12/21/2014 Telephone [place] [address] Ej Gilbert, hydroelectric production manager Only Social History Tobacco Use Types Packs/Day [...] Dr. Starkey to order. Preferred pharmacy is [facility] in [place]. Patient will call with update after cipro course. Reviewed importance of following up with weight loss with PCP. Patient verbalized agreement. Transferred patient to Dr. Starkey's loan secretary to schedule f/u appointment for this winter. [...] once a month. 2. Follow up with flight operations specialist as scheduled for her worsening shortness of breath. Seeing flight operations specialist. Breathing makes exercise difficult. 3. For [...] in this encounter Care Teams Cut Off Saw Grader Relationship Specialty Start Date End Date Mary Alice Cage APRN PCP - General 10/12/11 11/12/18 documented as of this encounter
--- OUTSIDE RECORDS SUMMARY | 2024-07-24 00:53 | XMS_ITS | Encounter Summary ---
[place] [address] Care Team Providers Care Tool Drawing Checker Name Role Phone WashoeMary Alice davis MANUELA Primary Care Provider [phone] Reason for Visit * Reason Onset Date Comments Advice Only 08/16/2015 Encounter Details Date Type Department Care Team (Late st Contact Info) Description 08/16/2015 Ref[place] [address] Ej Gilbert RN Thrush Social History Tobacco [...] 02/21/[address] Holloway with 3refills. Called [facility] pharmacy in [place]. Pharmacist states she has all three refills remaining. Left message for patient that she has 3 refills remaining and doesn't need a new script at this time. documented in this encounter Plan of Treatment Not on file documented as of this encounter Visit Diagnoses Diagnosis Thrush Candidiasis of mouth documented in this encounter Care Teams Tool Drawing Checker Relationship Specialty Start Date End Date Mary Alice Cage APRN PCP - General 10/12/11 11/12/18 documented as of this encounter
--- OUTSIDE RECORDS SUMMARY | 2024-07-24 00:53 | XMS_ITS | Encounter Summary ---
Author Organization [facility] [place] [address] Care Team Providers Care Salt Machine Operator Name Role Phone Anne ArundelMary Alice advis MANUELA Primary Care Provider [phone] Encounter Details Date Type Department Care Team (Late st Contact Info) Description 11/30/2014 10:15 AM EDT Follow-[place] [address] SCHEDULE 1, PFT Osmany Holloway MD [facility] [place] [address] Dyspnea Discharge Disposition: Home Social History [place] Combo Route) route daily. ??? fluticasone (FLONASE) [...] abnormality documented in this encounter Care Teams Salt Machine Operator Relationship Specialty Start Date End Date Mary Alice Cage APRN PCP - General 10/12/11 11/12/18 documented as of this encounter
--- OUTSIDE RECORDS SUMMARY | 2024-07-24 00:53 | XMS_ITS | Encounter Summary ---
[place] [address] Care Team Providers Care Patch Setter Name Role Phone Mary Alice Cage MANUELA Primary Care Provider [phone] Encounter Details Date Type Department Care Team (Late st Contact Info) Description 08/25/2015 Telephone [place] [address] Virgie Olvera Social History Tobacco Use Types [...] on filedocumented in this encounter Care Teams Patch Setter Relationship Specialty Start Date End Date Mary Alice Cage APRN PCP - General 10/12/11 11/12/18 documented as of this encounter
--- OUTSIDE RECORDS SUMMARY | 2024-07-24 00:53 | XMS_ITS | Encounter Summary ---
Author Organization [place] [id number] Care Team Providers Care Woven Paper Hat Mender Name Role Phone Mary Alice Cage APRN Primary Care Provider [phone] Reason for Referral * Physical Therapy (Routine) - Closed Specialty Diagnoses / Procedures Referred By Chava alejo Referred To Contact Physical Therapy Diagnoses Right lumbar radiculopathy Rios Acuna MD [facility] [place] [address] Referral ID Status Reason Start Date Expiration Date V isits Requested Visits Authorized [id number] Closed Evaluate and Treat 09/16/2014 03/15/2015 1 1 Reason for Visit * Reason Comments Back Pain Encounter Details Date Type Department Care Team (Latest Contact Info) Description 09/16/2014 11:00 AM EST Office [place] [address] Rios cAuna MD [facility] [place] [address] Right lumbar radiculopathy Discharge Disposition: Home Social [...] unspecified documented in this encounter Care Teams Woven Paper Hat Mender Relationship Specialty Start Date End Date Mary Alice Cage APRN PCP - General 10/12/11 11/12/18 documented as of this encounter
--- OUTSIDE RECORDS SUMMARY | 2024-07-24 00:53 | XMS_ITS | Encounter Summary ---
[place] [address] Care Team Providers Care Aircraft Engine Technician Name Role Phone [place] Mary Alicepham Drew APRN Primary Care Provider [phone] Reason for Referral * Physical Therapy (Routine) - Closed Specialty Diagnoses / Procedures Referred By Chava alejo Referred To Contact Physical Therapy Diagnoses Right lumbar radiculopathy Rios Acuna MD [facility] [place] [place] [address] Referral ID Status Reason Start Date Expiration Date V isits Requested Visits Authorized [id number] Closed Evaluate and Treat 01/06/2015 07/05/2015 12 12 Encounter Details Date Type Department Care Team (Late st Contact Info) Description 01/06/2015 Orders [place] [address] Chen Valencia, RN Right lumbar radiculopathy Social [...] documented in this encounter Care Teams Aircraft Engine Technician Relationship Specialty Start Date End Date Mary Alice Cage APRN PCP - General 10/12/11 11/12/18 documented as of this encounter
--- OUTSIDE RECORDS SUMMARY | 2024-07-24 00:53 | XMS_ITS | Encounter Summary ---
[place] [address] Care Team Providers Care Resource Coordinator Name Role Phone BeaverMary Alice davis Rajendra ROY Primary Care Provider Encounter Details Date Type Department Care Team (Late st Contact Info) Description 07/27/2015 [place] [address] Virgie Olvera Social History Tobacco Use Types [...] on filedocumented in this encounter Care Teams Resource Coordinator Relationship Specialty Start Date End Date Mary Alice Cage APRN PCP - General 10/12/11 11/12/18 documented as of this encounter
--- OUTSIDE RECORDS SUMMARY | 2024-07-24 00:53 | XMS_ITS | Encounter Summary ---
[place] [address] Care Team Providers Care Concrete Carpenter Name Role Phone WilbargerMary Alice davis Rajendra ROY Primary Care Provider [phone] Encounter Details Date Type Department Care Team (Late st Contact Info) Description 08/17/2014 10:20 AM EST Clinical [place] [phone] Social History Tobacco Use Types Packs/Day Years [...] filedocumented in this encounter Care Teams Concrete Carpenter Relationship Specialty Start Date End Date Mary Alice Cage APRN PCP - General 10/12/11 11/12/18 documented as of this encounter
--- OUTSIDE RECORDS SUMMARY | 2024-07-24 00:53 | XMS_ITS | Encounter Summary ---
[place] [address] Care Team Providers Care Typewriter Operator Automatic Name Role Phone Mary Alice Cage MANUELA Primary Care Provider [phone] Reason for Visit * Reason Onset Date Comments Advice Only 05/24/2015 Encounter Details Date Type Department Care Team (Late st Contact Info) Description 05/24/2015 Telephone [place] [address] Ej Gilbert, condominium manager Only Social History Tobacco Use Types [...] work. She would like to return to [facility]. Also states that her course of ciprofloxacin for gas and bloating was not helpful either. Routing to Dr. Starkey documented in this encounter Plan of Treatment Not on file documented as of this encounter Visit Diagnoses Diagnosis Chronic abdominal pain Abdominal pain, unspecified site documented in this encounter Care Teams Typewriter Operator Automatic Relationship Specialty Start Date End Date Mary Alice Cage APRN PCP - General 10/12/11 11/12/18 documented as of this encounter
--- OUTSIDE RECORDS SUMMARY | 2024-07-24 00:53 | XMS_ITS | Encounter Summary ---
[place] [address] Care Team Providers Care Front Desk Admin Name Role Phone Mary Alice Cage MANUELA Primary Care Provider [phone] Reason for Visit * Reason Onset Date Comments Pre Procedure Call 08/17/2014 pre op med ho ld, request for pain medication. Encounter Details Date Type Department Care Team (Late st Contact Info) Description 08/17/2014 Telephone [place] [address] Milvia Fernandez RN Pre Procedure [...] filedocumented in this encounter Care Teams Front Desk Admin Relationship Specialty Start Date End Date Mary Alice Cage APRN PCP - General 10/12/11 11/12/18 documented as of this encounter
--- OUTSIDE RECORDS SUMMARY | 2024-07-24 00:53 | XMS_ITS | Encounter Summary ---
[place] [address] Care Team Providers Care Shipping Services Sales Representative Name Role Phone Mary Alice Cage MANUELA Primary Care Provider [phone] Encounter Details Date Type Department Care Team (Late st Contact Info) Description 08/31/2014 7:30 AM EST - 08/31/2014 10:28 AM EST Surgery [place] [address] Rios Gonzalez MD [facility] [place] [address] TRANSPEDICULAR LUMBAR DECOMPRESSION SPINAL CORD,EQUINA & NERVE [...] to call your physician or the hospital mechanical spreader operator if you have any questions, and [...] them. 3. You should also take an jfpl-mad-iksjtry stool softener, such as Colace or Senna, [...] please contact the Spine Center Prescription Lineat [phone]. PRESCRIPTION RENEWAL REQUESTS CAN TAKE UP TO 3 DAYS TO FILL. YOU WILL BE REQUIRED TO MAIL SORTER YOUR NARCOTIC REFILL PRESCRIPTION IN PERSON AT [facility] OR IT CAN BE MAILED TO YOUR [...] fallen off already. PLEASE CALL US AT [phone] TO SPEAK WITH A SPINE CENTER NURSE [...] Important Phone Numbers: Clinical issues, nurse questions: [phone] Medication renewals: [phone]: Kalpana : [phone] Follow Up Appointments: 1. You will have follow-up appointments at [facility] as indicated in the ???Future Appointments and [...] 24-Hour Pre-Operative H&P Update Poppy Mclaughlin 1960 [id number] Patient seen in pre-op holding area today. [...] Gonzalez MD - 08/31/2014 10:00 AM EST [facility] Operative Note Patient Name: Poppy Mclaughlin : [id number] MR#: [id number] Case Date: 08/31/2014 Surgeon: Surgeon(s) and Role: [...] The L4 pedicle was palpated with the [place], and we identified the L4-L5 foramen. 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
--- OUTSIDE RECORDS SUMMARY | 2024-07-24 00:53 | XMS_ITS | Encounter Summary ---
Author Organization [facility] [place] [address] Care Team Providers Care Biotech Production Specialist Name Role Phone Mary Alice Cage APRN Primary Care Provider Reason for Visit * Reason Onset Date Comments Medication Refill 03/10/2015 Encounter Details Date Type Department Care Team (Late st Contact Info) Description 03/10/2015 [place] [address] Osmany Holloway MD [facility] [place] [address] Social History Tobacco Use Types Packs/Day Years [...] on filedocumented in this encounter Care Teams Biotech Production Specialist Relationship Specialty Start Date End Date Mary Alice Cage APRN PCP - General 3//12 4/3/19 documented as of this encounter
--- OUTSIDE RECORDS SUMMARY | 2024-07-24 00:53 | XMS_ITS | Encounter Summary ---
[place] [address] Care Team Providers Care Talent Acquisition Sourcer Name Role Phone [place]nehahaMary Alice davis Rajendra ROY Primary Care Provider [phone] Encounter Details Date Type Department Care Team (Late st Contact Info) Description 02/21/2015 9:40 AM EDT - 02/21/2015 10:25 AM EDT [place] [address] CLINIC, DR MATEUSZ Walker Social History Tobacco [...] Spacing Device Spcr 2 puffs by [facility]Non-Drug; Combo Route) route daily. promethazine (PHENERGAN) [...] abnormality documented in this encounter Care Teams Talent Acquisition Sourcer Relationship Specialty Start Date End Date Mary Alice Cage APRN PCP - General 10/12/11 11/12/18 documented as of this encounter
--- OUTSIDE RECORDS SUMMARY | 2024-07-24 00:53 | XMS_ITS | Encounter Summary ---
Author Organization [facility] [place] [address] Care Team Providers Care Studio Director Name Role Phone Mary Alice Cage MANUELA Primary Care Provider [phone] Reason for Visit * Reason Comments Follow-up Encounter Details Date Type Department Care Team (Latest Contact Info) Description 11/18/2014 3:30 PM EDT Follow-[place] [address] Justin Starkey MD [facility] [place] [address] H/O gastroesophageal reflux (GERD); Diarrhea; Chronic abdominal [...] 54 yrs, 1960 PCP: Mary Alice Cage CLERICAL ADVISER: NONE REASON FOR VISIT This is a [...] the last year. 2. Follow up with automation controls specialist as scheduled for her worsening shortness [...] patient. The entire visit was spent in ynqk-lo-ofua counseling and coordination of care. Justin Starkey, PhD, MD straight line edger, [facility] [employer] Section of Gastroenterology and Hepatology [facility] [address] V: [phone] F: [phone] MICKY/kelsey/mian CC/EC: PCP - staff msg copy 11/30/14 documented in this encounter Plan of Treatment Not on file documented as of this encounter Visit Diagnoses Diagnosis H/O gastroesophageal reflux (GERD) Personal history of other diseases of digestive system Diarrhea Chronic abdominal pain Abdominal pain, unspecified site documented in this encounter Care Teams Studio Director Relationship Specialty Start Date End Date Mary Alice Cage APRN PCP - General 10/12/11 11/12/18 documented as of this encounter
--- OUTSIDE RECORDS SUMMARY | 2024-07-24 00:53 | XMS_ITS | Encounter Summary ---
[place] [address] Care Team Providers Care Ball Shagger Name Role Phone Mary Alice Cage MANUELA Primary Care Provider [phone] Encounter Details Date Type Department Care Team (Latest Contact Info) Description 08/31/2014 5:47 AM EST - 08/31/2014 1:25 PM EST Hospital Encounter [place] [address] Rios Gonzalez MD [facility] [place] [address] Right lumbar radiculopathy (Primary Dx) Discharge Disposition: [...] to call your physician or the hospital cambering machine operator if you have any questions, and [...] them. 3. You should also take an ovdo-rqu-fxrhcwz stool softener, such as Colace or Senna, [...] please contact the Spine Center Prescription Lineat [phone]. PRESCRIPTION RENEWAL REQUESTS CAN TAKE UP TO 3 DAYS TO FILL. YOU WILL BE REQUIRED TO PLC TECHNICIAN YOUR NARCOTIC REFILL PRESCRIPTION IN PERSON AT [facility] OR IT CAN BE MAILED TO YOUR [...] fallen off already. PLEASE CALL US AT [phone] TO SPEAK WITH A SPINE CENTER NURSE [...] Important Phone Numbers: Clinical issues, nurse questions: [phone] Medication renewals: [phone]: Kalpana : [phone] Follow Up Appointments: 1. You will have follow-up appointments at [facility] as indicated in the ???Future Appointments and [...] Spine [facility] 10/04/2014 11:40 AM Rios Gnozalez MD [facility] 11/30/2014 8:30 [place]; Combo Route) route daily. promethazine (PHENERGAN) 25 [...] 24-Hour Pre-Operative H&P Update Poppy Mclaughlin 1960 [id number] Patient seen in pre-op holding area today. 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
--- OUTSIDE RECORDS SUMMARY | 2024-07-24 00:53 | XMS_ITS | Encounter Summary ---
[place] [address] Care Team Providers Care Foreign Broadcast Specialist Name Role Phone Mary Alice Cage MANUELA Primary Care Provider [phone] Reason for Visit * Reason Onset Date Comments Other 03/24/2015 letter from kamron ROA Encounter Details Date Type Department Care Team (Late st Contact Info) Description 03/24/2015 Telephone [place] [address] Chen Valencia, RN Other (letter [...] hearing. Call placed to the office of Configuration Developerjacob Clancy; left message acknowledging the receipt of the letter; advised in the message that Dr Corbett has not seen pt since September of 2014 in FU to her lumbar Discectomy; Explained that Dr corbett does not perform social security disability determinations or impairment ratings; That this is typically performed by a pt's PCP. In message informed junior network engineer that if an opinion of a specialist was being sought; they could request an eval by an occupational medicine provider who perform such evals as a specialty. Informed junior network engineer that the questionnaires wouldbe recycled. [facility] clinic and hospital documentation is available through [facility]- Medical Records, Release of Information by request. Call placed to pt; left message requesting return call. Upon return call will advise pt that the service requested by her junior network engineer is not one that the spine surgeon performs; that we have directed her junior network engineer to direct his inquiry to her PCP. 11:38 Pt returned call; informed pt of above; pt indicated that the request had already been sent to her PCP for completion. documented in this encounter Plan of Treatment Not on file documented as of this encounter Visit Diagnoses Not on filedocumented in this encounter Care Teams Foreign Broadcast Specialist Relationship Specialty Start Date End Date Mary Alice Cage APRN PCP - General 10/12/11 11/12/18 documented as of this encounter
--- OUTSIDE RECORDS SUMMARY | 2024-07-24 00:53 | XMS_ITS | Encounter Summary ---
Author [facility] [address] Care Team Providers Care Sap Bw Consultant Name Role Phone Mary Alice Cage APRN Primary Care Provider Reason for Visit * Reason Comments Medication Refill Encounter Details Date Type Department Care Team (Late st Contact Info) Description 08/17/2015 Refill [place] [address] Justin Starkey MD [facility] [place] [address] Social History Tobacco Use Types Packs/Day Years [...] filedocumented in this encounter Care Teams Sap Bw Consultant Relationship Specialty Start Date End Date Mary Alice Cage APRN PCP - General 10/12/11 11/12/18 documented as of this encounter
--- OUTSIDE RECORDS SUMMARY | 2024-07-24 00:53 | XMS_ITS | Encounter Summary ---
Author Organization [facility] Address [facility] [place] [address] Care Team Providers Care Play Reader Name Role Phone Mary Alice Cage APRN Primary Care Provider [phone] Encounter Details Date Type Department Care Team (Latest Contact Info) Description 09/16/2014 10:[address] [facility] Hospital Encounter XRay at [address] [place] [address] Herniated nucleus pulposus, C6-7 Right, S/P C5-7 [...] myelopathy documented in this encounter Care Teams Play Reader Relationship Specialty Start Date End Date Mary Alice Cage APRN PCP - General 10/12/11 11/12/18 documented as of this encounter
--- OUTSIDE RECORDS SUMMARY | 2024-07-24 00:53 | XMS_ITS | Encounter Summary ---
Author Organization [facility] Address [facility] [place] [address] Care Team Providers Care Ethylbenzene Converter Helper Name Role Phone Mary Alice Cage APRN Primary Care Provider [phone] Encounter Details Date Type Department Care Team (Latest Contact Info) Description 09/16/2014 10:05 AM EST - 09/16/2014 11:59 PM [facility] Hospital Encounter XRay at [address] [place] [address] Radiculopathy of lumbar region Social History Tobacco [...] unspecified documented in this encounter Care Teams Ethylbenzene Converter Helper Relationship Specialty Start Date End Date Mary Alice Cage APRN PCP - General 10/12/11 11/12/18 documented as of this encounter
--- OUTSIDE RECORDS SUMMARY | 2024-07-24 00:53 | XMS_ITS | Encounter Summary ---
Author Organization [facility] [place] [address] Care Team Providers Care Teletray Operator Name Role Phone SierraMary Alice davis Rajendra ROY Primary Care Provider [phone] Reason for Visit * Reason Comments Follow-up Encounter Details Date Type Department Care Team (Late st Contact Info) Description 08/03/2014 3:45 PM EST [place] [address] Osmany Holloway MD [facility] [place] [address] Edema; Dyspnea; Hypertension Discharge Disposition: Home Social [...] ODETTE Del Cid ?(Age): 1960(54) Med Rec#: ?[id number] ? Sex: ?F ? Site Loc: ?[facility] ? Ht / Wt: ??154(cm)/91(kg) Pt. Loc: ? Echo Lab ? BSA: ?1.97 Study Date: ?11/30/2014 ? Pt. Type: Outpatient Tape: ? Referring: Osmany Holloway Tier And Detonator: Andriy Garland Diagnosis:CPT Code(s): ??Echo Full (64752), ??Spectral Doppler (76662), Color Doppler (03004), Indication(s): ??Edema Rhythm: Sinus HR ?BP ?150/88 [...] ? Mid-Inferior ?Normal ? Mid-Inferoseptal ?Normal ? [place]-Septal ? Normal ? [place]-Anterior ? Normal ? [place]-Lateral ?Normal ? [place]-Inferior ? Normal ? [place]-Tip ?Normal ? Chambers ?Value ?Units (Range) ? [...] Images reviewed and interpretation verified [facility] Cardiac Ultrasound Laboratory Procedure Note Vinicio Skelton MD - 11/30/2014 Procedure: Transthoracic Echocardiogram Patient: ODETTE FRANCISCO(Age): 1960(54) Med Rec#: [id number] Sex: F Site Loc: [facility] Ht / Wt: 154(cm)/91(kg) Pt. Loc: Echo Lab BSA: 1.97 Study Date: 11/30/2014 Pt. Type: Outpatient Tape: Referring: Osmany Holloway Tier And Detonator: Andriy Garland Diagnosis:CPT Code(s): Echo Full (68315), Spectral Doppler (11298), Color Doppler (47875), Indication(s): Edema Rhythm: Sinus HR BP 150/88 [...] Normal Mid-Posterolateral Normal Mid-Inferior Normal Mid-Inferoseptal Normal [place]-Septal Normal [place]-Anterior Normal [place]-Lateral Normal [place]-Inferior Normal [place]-Tip Normal Chambers Value Units (Range) LV EF [...] Images reviewed and interpretation verified [facility] Cardiac Ultrasound Laboratory Osmany Overton MD ECHO ORDERABLES documented in this encounter Visit Diagnoses Diagnosis Edema Dyspnea Other dyspnea and respiratory abnormality Hypertension Unspecified essential hypertension Dyspnea Other dyspnea and respiratory abnormality Edema Dyspnea Other dyspnea and respiratory abnormality documented in this encounter Care Teams Teletray Operator Relationship Specialty Start Date End Date Mary Alice Cage APRN PCP - General 10/12/11 11/12/18 documented as of this encounter
--- OUTSIDE RECORDS SUMMARY | 2024-07-24 00:53 | XMS_ITS | Encounter Summary ---
[place] [address] Care Team Providers Care Radar Tester Name Role Phone [place]ganMary Alice davis Rajendra ROY Primary Care Provider [phone] Encounter Details Date Type Department Care Team (Late st Contact Info) Description 01/06/2015 Telephone [place] [address] Gabriella Garcia Social History Tobacco Use Types [...] 30 days old. New referral faxed to [facility]. [phone]. documented in this encounter Plan of Treatment Not on file documented as of this encounter Visit Diagnoses Not on filedocumented in this encounter Care Teams Radar Tester Relationship Specialty Start Date End Date Mary Alice Cage APRN PCP - General 10/12/11 11/12/18 documented as of this encounter
--- OUTSIDE RECORDS SUMMARY | 2024-07-24 00:53 | XMS_ITS | Encounter Summary ---
[place] [address] Care Team Providers Care Crusher Supervisor Name Role Phone LaurelMary Alice davis Rajendra ROY Primary Care Provider [phone] Encounter Details Date Type Department Care Team (Late st Contact Info) Description 09/08/2014 Telephone [place] [phone] Lacey Steiner, RN Social History Tobacco Use [...] on filedocumented in this encounter Care Teams Crusher Supervisor Relationship Specialty Start Date End Date Mary Alice Cage APRN PCP - General 10/12/11 11/12/18 documented as of this encounter
--- OUTSIDE RECORDS SUMMARY | 2024-07-24 00:53 | XMS_ITS | Encounter Summary ---
[facility] Organization [facility] [address] Care Team Providers Care Clean Out Driller Helper Name Role Phone ForrestMary Alice davis Rajendra ROY Primary Care Provider [phone] Encounter Details Date Type Department Care Team (Late st Contact Info) Description 11/30/2014 9:22 AM EDT - 11/30/2014 11:59 PM EDT Hospital En[place] [address] Dyspnea Social History Tobacco Use Types Packs/Day [...] abnormality documented in this encounter Care Teams Clean Out Driller Helper Relationship Specialty Start Date End Date Mary Alice Cage APRN PCP - General 10/12/11 11/12/18 documented as of this encounter
--- OUTSIDE RECORDS SUMMARY | 2024-07-24 00:53 | XMS_ITS | Encounter Summary ---
[place] [address] Care Team Providers Care Bad Work Gatherer Name Role Phone Mary Alice Cage Rajendra ROY Primary Care Provider [phone] Reason for Visit * Reason Onset Date Comments Prior Authorization 04/14/2015 Dexilant Encounter Details Date Type Department Care Team (Late st Contact Info) Description 04/14/2015 Telephone [place] [phone] Gardenia Bueno CMA GASTROENTEROLOGY DEPT Prior Authorization [...] QD Quantity/supply/refills: refill 11 Patient???s Preferred Pharmacy: [facility] [phone] Reason PA is needed: non formulary New Request or PA Renewal?: PA renewel Previously Approved? Yes ( see Debbie Note) PA Case No., Date Issued, Dated , Case No.: PA REQUEST SUBMITTED to: [place] medicaid Phone and -[phone] Patient???s RX Insurance Plan ID No.: [id number] Rx Insurer???s Preferred drugs: PA Case No. [...] 60 mg ORIGINAL PA REQUEST SUBMITTED to: [employer] Rx Insurer: Phone and Fax: Patient???s RX Insurance Plan ID No.: PA Case No. Date Submitted: PA REQUEST APPROVED: PA Case No./Approval No.: [id number] Effective Dates: 04/15/2015-04/15/2016 Special Conditions/Notes: * Telephone Encounter - Renetta Greenfield MA - 04/15/2015 1:25 PM EDT Dexilant prior authorization received, still in process. * Telephone Encounter - Gardenia Bueno CMA - 04/14/2015 4:52 PM EDT PRIOR AUTHORIZATION REQUEST for: dexilant Dose/Instructions: 60 mg QD Quantity/supply/refills: refill 11 Patient???s Preferred Pharmacy: [facility] [phone] Reason PA is needed: non formulary New Request or PA Renewal?: PA renewel Previously Approved? Yes ( see Debbie Note) PA Case No., Date Issued, Dated , Case No.: PA REQUEST SUBMITTED to: [place] medicaid Phone and -[phone] Patient???s RX Insurance Plan ID No.: [id number] Rx Insurer???s Preferred drugs: PA Case No. [...] PA REQUEST APPROVED: PA Case No./Approval No.: [id number] Effective Dates: 04/15/2015-04/15/2016 Special Conditions/Notes: documented in [...] on filedocumented in this encounter Care Teams Bad Work Gatherer Relationship Specialty Start Date End Date Mary Alice Cage APRN PCP - General 10/12/11 11/12/18 documented as of this encounter
--- OUTSIDE RECORDS SUMMARY | 2024-07-24 00:53 | XMS_ITS | Encounter Summary ---
[place] [address] Care Team Providers Care Slasher Machine Operator Name Role Phone Mary Alice Cage MANUELA Primary Care Provider [phone] Reason for Visit * Reason Comments Advice Only Encounter Details Date Type Department Care Team (Late st Contact Info) Description 04/15/2015 Telephone [place] [phone] Nina Hollingsworth RN DEPT OF GASTROENTEROLOGY Advice [...] enteric coated peppermint oil capsules. Purchase at [employer] store. Use 1 capsule 3 times a [...] on filedocumented in this encounter Care Teams Slasher Machine Operator Relationship Specialty Start Date End Date Mary Alice Cage APRN PCP - General 10/12/11 11/12/18 documented as of this encounter
--- OUTSIDE RECORDS SUMMARY | 2024-07-24 00:53 | XMS_ITS | Encounter Summary ---
Author Organization [facility] [place] [address] Care Team Providers Care Peanut Roaster Name Role Phone Mary Alice Cage Rajendra ROY Primary Care Provider [phone] Reason for Visit * Reason Onset Date Comments Medication Refill 02/25/2015 Encounter Details Date Type Department Care Team (Late st Contact Info) Description 02/25/2015 [place] [address] Osmany Holloway MD [facility] [place] [address] Medication Refill Social History Tobacco Use Types [...] classified documented in this encounter Care Teams Peanut Roaster Relationship Specialty Start Date End Date Mary Alice Cage APRN PCP - General 10/12/11 11/12/18 documented as of this encounter
--- OUTSIDE RECORDS SUMMARY | 2024-07-24 00:53 | XMS_ITS | Encounter Summary ---
[place] [address] Care Team Providers Care Project Administrative Assistant Name Role Phone NilesCariepham Drew APRN Primary Care Provider Encounter Details Date Type Department Care Team (Late st Contact Info) Description 11/30/2014 8:30 AM EDT - 11/30/2014 9:21 AM EDT Hospital Encounter Non-[place]vasive [place] [address] Edema; Dyspnea Social History Tobacco [...] SOTELO Maria Eugenia ?(Age): 1960(54) Med Rec#: ?[id number] ? Sex: ?F ? [place] [place] Ht / Wt: ??154(cm)/91(kg) Pt. Loc: ? Echo Lab ? BSA: ?1.97 Study Date: ?11/30/2014 ? Pt. Type: Outpatient Tape: ? Referring: Osmany Holloway Clinical Staff Anesthesiologist: Andriy Garland Diagnosis:CPT Code(s): ??Echo Full (62809), ??Spectral Doppler (13517), Color Doppler (01651), Indication(s): ??Edema Rhythm: Sinus HR ?BP ?150/88 [...] ? Mid-Inferior ?Normal ? Mid-Inferoseptal ?Normal ? Waucoma-Septal ? Normal ? Waucoma-Anterior ? Normal ? Waucoma-Lateral ?Normal ? Waucoma-Inferior ? Normal ? Waucoma-Tip ?Normal ? Chambers ?Value ?Units (Range) ? [...] 09:40:46 Images reviewed and interpretation verified [facility] Cardiac Ultrasound Laboratory Procedure Note Vinicio Skelton MD - 11/30/2014 Procedure: Transthoracic Echocardiogram Patient: ODETTE Del Cid DOB(Age): 1960(54) Med Rec#: [id number] Sex: F [place] [facility] Ht / Wt: 154(cm)/91(kg) Pt. Loc: Echo Lab BSA: 1.97 Study Date: 11/30/2014 Pt. Type: Outpatient Tape: Referring: Osmany Holloway Clinical Staff Anesthesiologist: Andriy Garland Diagnosis:CPT Code(s): Echo Full (02677), Spectral Doppler (72433), Color Doppler (92788), Indication(s): Edema Rhythm: Sinus HR BP 150/88 [...] Normal Mid-Posterolateral Normal Mid-Inferior Normal Mid-Inferoseptal Normal Waucoma-Septal Normal Waucoma-Anterior Normal Waucoma-Lateral Normal Waucoma-Inferior Normal Waucoma-Tip Normal Chambers Value Units (Range) LV EF [...] 09:40:46 Images reviewed and interpretation verified [facility] Cardiac Ultrasound Laboratory Osmany Overton MD ECHO ORDERABLES documented in this encounter Visit Diagnoses Diagnosis Edema Dyspnea Other dyspnea and respiratory abnormality documented in this encounter Care Teams Project Administrative Assistant Relationship Specialty Start Date End Date Mary Alice Cage, MANUELA PCP - General 10/12/11 11/12/18 documented as of this encounter
--- OUTSIDE RECORDS SUMMARY | 2024-07-24 00:53 | XMS_ITS | Encounter Summary ---
[place] [address] Care Team Providers Care Import And Export Clerk Name Role Phone RawlinsMary Alice davis MANUELA Primary Care Provider [phone] Reason for Visit * Reason Comments Dysphagia Encounter Details Date Type Department Care Team (Late st Contact Info) Description 04/15/2015 Telephone [place] [phone] Nina Hollingsworth, RN DEPT OF GASTROENTEROLOGY Dysphagia [...] on filedocumented in this encounter Care Teams Import And Export Clerk Relationship Specialty Start Date End Date Mary Alice Cage APRN PCP - General 10/12/11 11/12/18 documented as of this encounter
--- OUTSIDE RECORDS SUMMARY | 2024-07-24 00:53 | XMS_ITS | Encounter Summary ---
Author Organization [facility] [place] [address] Care Team Providers Care Business Planning Analyst Name Role Phone ForrestMary Alice davis Rajendra ROY Primary Care Provider [phone] Encounter Details Date Type Department Care Team (Latest Contact Info) Description 08/17/2014 9:56 AM [facility] - 08/17/2014 11:59 PM [facility] Hospital En[place] [address] Rios Acuna MD [facility] [place] [address] Radiculopathy of lumbar region Discharge Disposition: Home [...] Inhalational Spacing Device Spcr 2 puffs by [facility].(Non-Drug; Combo Route) route daily. promethazine (PHENERGAN) 25 [...] region TYPE AND SCREEN, SDP (FUTURE SURGERY, [facility] SAME DAY PROGRAM ONLY) Routine 08/17/2014 10:17 [...] 10:17 AM EST) Ab Screen Interp Negative [facility] Expires at 9100 on: [id number] [facility] Blood specimen (specimen) 08/17/2014 10:17 [...] BANK LAB ORDER DAMARIS Performing Organization Address City/[facility]/ZIP Co de Phone Number CERNER MILLENNIUM * [...] MD HEMATOLOGY ORDERABLE S Performing Organization Address [facility]/ZIP Co de Phone Number CERNER AMANDAENNIUM * [...] 12.5 - 15.5 sec CERNER MILLENNIUM Comment: [facility] Transfusion Committee Guidelines: INR less than [...] intervals supplied above were not validated at [facility]. Results from pediatric patients should be interpreted [...] the following links into your internet browser. [email or web address] Blood specimen (specimen) 08/17/2014 10:17 AM EST 08/17/2014 10:25 AM EST Narrative Resulting Agency Comment Spec In Lab Rios Acuna MD CHEMISTRY ORDERABLES [facility] documented in this encounter Visit Diagnoses Diagnosis Radiculopathy of lumbar region Thoracic or lumbosacral neuritis or radiculitis, unspecified documented in this encounter Care Teams Business Planning Analyst Relationship Specialty Start Date End Date Mary Alice Cage APRN PCP - General 10/12/11 11/12/18 documented as of this encounter
--- OUTSIDE RECORDS SUMMARY | 2024-07-24 00:53 | XMS_ITS | Encounter Summary ---
Author Organization [facility] [place] [address] Care Team Providers Care Bar Captain Name Role Phone WinklerMary Alice davis Rajendra ROY Primary Care Provider Reason for Referral * Consultation (Routine) - Closed Specialty Diagnoses / Procedures Referred By Cahva alejo Referred To Contact General Surgery Diagnoses H/O gastroesophageal reflux (GERD) Justin Starkey MD [facility] [place] [address] Malgorzata Miguel MD [facility] [place] [address] Referral ID Status Reason Start Date Expiration Date V isits Requested Visits Authorized [id number] Closed Specialty Service Requested 08/11/2015 08/10/2016 1 1 * Surgical (Routine) - Closed Specialty Diagnoses / Procedures Referred By Chava alejo Referred To Contact Gastroenterology Diagnoses H/O gastroesophageal reflux (GERD) GERD Procedures MANOMETRY ESOPHAGEAL PALMER CAPSULE PH TEST HREM; Palmer OFF meds, EGD. Pt will stop Dexilant 2 weeks in advance.?? Patient will call to schedule for september or october 2015 Jusitn Starkey MD [facility] [place] [address] [facility] [address] [place] [address] Referral ID Status Reason Start Date Expiration Date V isits Requested Visits Authorized [id number] Closed Test Only 08/11/2015 08/10/2016 1 1 Reason for Visit * Reason Comments Follow-up Encounter Details Date Type Department Care Team (Latest Contact Info) Description 08/11/2015 10:00 AM EST Office [place] [address] Justin Starkey MD [facility] [place] [address] H/O gastroesophageal reflux (GERD); IBS (irritable bowel [...] , SR None PCP: Mary Alice Cage GRANT ADMINISTRATOR: NONE REASON FOR VISIT This is a [...] medicaland psychological issues and also with her environmental health specialist for her COPD and worsening shortness [...] HISTORY 1. Emergency hernia repair May 2011, [place]. 2. Cholecystectomy 11/24/12. 3. Cervical spine fusion [...] and psychological issues. 2. Follow up with environmental health specialist for her COPD. 3. PRO. Lifestyle [...] patient. The entire visit was spent in [id number] counseling and coordination of care. Justin Starkey, PhD, MD food beverage supervisor, [facility] [employer] Chief, Section of Gastroenterology and Hepatology [facility] [place]DEUS [place] [address] V: [phone] F: [phone] MICKY/kelsey CC/EC: PCP - fax copy 08/16/15 [facility] Corporate Travel Agent - staff msg copy 08/16/15 documented in [...] uncontrolled documented in this encounter Care Teams Bar Captain Relationship Specialty Start Date End Date Mary Alice Cage APRN PCP - General 10/12/11 11/12/18 documented as of this encounter
--- OUTSIDE RECORDS SUMMARY | 2024-07-24 00:53 | XMS_ITS | Encounter Summary ---
[place] [address] Care Team Providers Care Alterations Sewer Name Role Phone Mary Alice Cage MANUELA Primary Care Provider [phone] Reason for Visit * Reason Onset Date Comments Back Pain 08/16/2014 Seen in local ED this weekend for back pain - given Percocet - It's not touching it Encounter Details Date Type Department Care Team (Late st Contact Info) Description 08/16/2014 Telephone Spine Center at [place] [phone] Ashanti Wu RN Back Pain (Seen in [...] increased. [facility] [place], [place]. She stated that she was given [...] that Dr Acuna was not available in clinic[facility]d Saturday. He did not order pain medication [...] on filedocumented in this encounter Care Teams Alterations Sewer Relationship Specialty Start Date End Date Mary Alice Cage APRN PCP - General 10/12/11 11/12/18 documented as of this encounter
--- OUTSIDE RECORDS SUMMARY | 2024-07-24 00:53 | XMS_ITS | Encounter Summary ---
Author Organization [facility] [address] Care Team Providers Care Ui Ux Developer Name Role Phone IberiaMary Alice davis Rajendra ROY Primary Care Provider [phone] Encounter Details Date Type Department Care Team (Late st Contact Info) Description 02/21/2015 10:26 AM EDT - 02/21/2015 11:59 PM EDT Hospital Encounter [place] [address] Dyspnea Social History Tobacco Use Types Packs/Day [...] Inhalational Spacing Device Spcr 2 puffs by [facility].(Non-Drug; Combo Route) route daily. promethazine (PHENERGAN) 25 [...] abnormality documented in this encounter Care Teams Ui Ux Developer Relationship Specialty Start Date End Date Mary Alice Cage APRN PCP - General 10/12/11 11/12/18 documented as of this encounter
--- OUTSIDE RECORDS SUMMARY | 2024-07-24 00:53 | XMS_ITS | Encounter Summary ---
Author Organization [facility] [place] [address] Care Team Providers Care Towel Cabinet Repairer Name Role Phone ManassasMary Alice davis Rajendra ROY Primary Care Provider [phone] Reason for Visit * Reason Comments Follow-up Encounter Details Date Type Department Care Team (Late st Contact Info) Description 02/21/2015 10:45 AM EDT Follow-[place] [address] Machelle Bueno MD [facility] [place] [address] COPD, moderate; Thrush Discharge Disposition: Home Social [...] [facility]Non-Drug; Combo Route) route daily. ??? fluticasone (FLONASE) [...] classified documented in this encounter Care Teams Towel Cabinet Repairer Relationship Specialty Start Date End Date Mary Alice Cage, IMPLEMENTATION TECHNICIAN PCP - General 10/12/11 11/12/18 documented as of this encounter
--- OUTSIDE RECORDS SUMMARY | 2024-07-24 00:53 | XMS_ITS | Encounter Summary ---
Author Organization [facility] [address] Care Team Providers Care Sql Server Bi Developer Name Role Phone Mary Alice Cage MANUELA Primary Care Provider [phone] Encounter Details Date Type Department Care Team (Late st Contact Info) Description 08/31/2014 7:35 AM EST Anesthesia [place] [address] Omar Donohue MD [facility] [place] [address] Anesthesia Record Procedure Summary Procedure Name Responsible [...] 0658; median vein left (underside of arm); [id number] catheter system; 20 gauge; Kaia Rivera RN; [...] Removal Time: 0908/31/14 0744 by Puneet Velarde, ZIPPER SEWING MACHINE OPERATOR 08/31/14 0953 by Puneet Velarde CRNA documented [...] CHOLANGIOGRAM performed by Abel Carlton MD at [facility] MAIN OR ??? Arthrodesis, ant interbody,decompression; cervical below c2 09/08/2013 ARTHRODESIS, ANT INTERBODY,DECOMPRESSION; CERVICAL BELOW C2 performed by Rios Acuna MD at [facility] MAIN OR ??? Arthrd ant interdy cervcl belw c2 ea addl ntrspc 09/08/2013 @ARTHRODESIS ANT INTERBDY CERVCL BELOW C2 EA ADDL INTRSPACE performed by Rios Acuna MD at [facility] MAIN OR ??? Anterior instrumentation 2-3 vertebral segments 09/08/2013 @ANT. SPINAL INSTRUMENTATION, 2-3 VERTEBRA, SEGMENTED performed by Rios Acuna MD at [facility] [place] ??? Allograft for spine surgery only structural 09/08/2013 ALLOGRAFT FOR SPINE SURGERY ONLY; STRUCTUAL performed by Rios Acuna MD at [facility] MAIN OR History Substance Use Topics [...] mouth. Remaining teeth poor condition, 5 remaining [facility] Assessment: Patient is wearing No contact(s). IV [...] problems with Propofol during lap [facility] at [facility] in 2012. HTN, recent change in meds [...] consented to blood products. Plan discussed with ZIPPER SEWING MACHINE OPERATOR. [facility]. Assessment: documented in this encounter Plan of [...] mg documented in this encounter Care Teams Sql Server Bi Developer Relationship Specialty Start Date End Date Mary Alice Cage APRN PCP - General 10/12/11 11/12/18 documented as of this encounter
--- OUTSIDE RECORDS SUMMARY | 2024-07-24 00:53 | XMS_ITS | Encounter Summary ---
[place] [address] Care Team Providers Care Front End Technician Name Role Phone IsantiMary Alice davis Rajendra ROY Primary Care Provider [phone] Reason for Visit * Reason Onset Date Comments Prior Authorization 04/08/2015 Dexilant Encounter Details Date Type Department Care Team (Late st Contact Info) Description 04/08/2015 Telephone [place] [phone] Renetta Greenfield MA GASTROENTEROLOGY DEPT Prior Authorization [...] filedocumented in this encounter Care Teams Front End Technician Relationship Specialty Start Date End Date Mary Alice Cage APRN PCP - General 10/12/11 11/12/18 documented as of this encounter
--- OUTSIDE RECORDS SUMMARY | 2024-07-24 00:54 | XMS_ITS | Encounter Summary ---
Author Organization [facility] [address] Care Team Providers Care Certified Forklift Operator Name Role Phone Mary Alice Cage APRN Primary Care Provider [phone] Reason for Visit * Reason Comments Medication Refill Encounter Details Date Type Department Care Team (Late st Contact Info) Description 11/07/2013 [place] [address] Samra Goodson VENEREAL DISEASE CONTROL [facility] [place] [address] Social History Tobacco Use Types Packs/Day Years [...] filedocumented in this encounter Care Teams Certified Forklift Operator Relationship Specialty Start Date End Date Mary Alice Cage APRN PCP - General 10/12/11 11/12/18 documented as of this encounter
--- OUTSIDE RECORDS SUMMARY | 2024-07-24 00:54 | XMS_ITS | Encounter Summary ---
Author Organization [facility] [place] [address] Care Team Providers Care Full Service Vending Driver Name Role Phone Mary Alice Cage APRN Primary Care Provider [phone] Reason for Visit * Reason Onset Date Comments Medication Refill 12/04/2013 Encounter Details Date Type Department Care Team (Late st Contact Info) Description 12/04/2013 Refill [place] [address] [facility] DR [place] [address] Social History Tobacco Use Types Packs/Day Years [...] on filedocumented in this encounter Care Teams Full Service Vending Driver Relationship Specialty Start Date End Date Mary Alice Cage APRN PCP - General 10/12/11 11/12/18 documented as of this encounter
--- OUTSIDE RECORDS SUMMARY | 2024-07-24 00:54 | XMS_ITS | Encounter Summary ---
[place] [address] Care Team Providers Care Rn Obgyn Name Role Phone KentMary Alice davis MANUELA Primary Care Provider [phone] Encounter Details Date Type Department Care Team (Late Contact Info) Description 05/28/2014 Telephone [place] [phone] Lexie Awad RN Social History Tobacco Use [...] a pacemaker) on 06/01/14 (date of procedure). Tobacco Roller: The patient was reminded that they need to have a courtesy van driver accompany them to her procedure who [...] No Prior to checking in at [employer], please be sure to empty your bladder. [...] on 06/01/14 (date of procedure) with their courtesy van driver. 2. Following instructions left in the [...] filedocumented in this encounter Care Teams Rn Obgyn Relationship Specialty Start Date End Date Mary Alice Cage APRN PCP - General 10/12/11 11/12/18 documented as of this encounter
--- OUTSIDE RECORDS SUMMARY | 2024-07-24 00:54 | XMS_ITS | Encounter Summary ---
[place] [address] Care Team Providers Care Pony Rougher Name Role Phone BoydMary Alice davis MANUELA Primary Care Provider [phone] Encounter Details Date Type Department Care Team (Late st Contact Info) Description 04/26/2014 Telephone [place] [phone] Lexie Awad RN Social History Tobacco Use [...] procedure start time) on 04/28/2014 with their local driver. 2. Following instructions left in the message: - Call the Pain Clinic Nurse at for: ~Procedure instructions. Lexie Awad RN documented in this encounter Plan of Treatment Not on file documented as of this encounter Visit Diagnoses Not on filedocumented in this encounter Care Teams Pony Rougher Relationship Specialty Start Date End Date Mary Alice Cage APRN PCP - General 10/12/11 11/12/18 documented as of this encounter
--- OUTSIDE RECORDS SUMMARY | 2024-07-24 00:54 | XMS_ITS | Encounter Summary ---
[place] [address] Care Team Providers Care Hearing Screen Coordinator Name Role Phone SocorroMary Alice davis Rajendra ROY Primary Care Provider [phone] Reason for Visit * Reason Onset Date Comments Other 06/23/2014 follow up to inj ection Encounter Details Date Type Department Care Team (Late st Contact Info) Description 06/23/2014 Telephone [place] [address] Lacey Steiner, RN Other (follow [...] unspecified documented in this encounter Care Teams Hearing Screen Coordinator Relationship Specialty Start Date End Date Mary Alice Cage APRN PCP - General 10/12/11 11/12/18 documented as of this encounter
--- OUTSIDE RECORDS SUMMARY | 2024-07-24 00:54 | XMS_ITS | Encounter Summary ---
Author Organization [facility] [place] [address] Care Team Providers Care Patternmaker Helper Name Role Phone [place] ColumbiaMary Alice davis Rajendra ROY Primary Care Provider [phone] Reason for Visit * Reason Comments Back Pain Bilateral Leg Pain Encounter Details Date Type Department Care Team (Latest Contact Info) Description 04/28/2014 9:15 AM EDT Procedure [place] [address] Kim Forbes [facility] [place] [address] Displacement of lumbar intervertebral disc without myelopathy [...] No 2. Patient states they have a cdl company flatbed driver to transport after procedure? Yes 3. [...] discharge criteria to the care of a cdl company flatbed driver. The patient received written instructions as [...] the entire procedure. KIM FORBES DO, MPH [facility]-subspecialty board certification in Pain Medicine Attending Physician-Pain Management CC: Rios Acuna MD [facility] [place] [address] documented in this encounter Plan of Treatment [...] discharge criteria ??to the care of a cdl company flatbed driver. ?? The patient received written instructions [...] Attending Physician-Pain Management CC: Rios Acuna MD [facility] [place] [address] Procedure Note Ivana Jung MD - 04/28/2014 [...] discharge criteria to the care of a cdl company flatbed driver. The patient receivedwritten instructions as documented [...] Attending Physician-Pain Management CC: Rios Acuna MD [facility] [address] Kim Jeong DO PROCEDURE/MINOR SURG ICAL ORDERABLES [...] mLs documented in this encounter Care Teams Patternmaker Helper Relationship Specialty Start Date End Date Mary Alice Cage APRN PCP - General 10/12/11 11/12/18 documented as of this encounter
--- OUTSIDE RECORDS SUMMARY | 2024-07-24 00:54 | XMS_ITS | Encounter Summary ---
[place] [address] Care Team Providers Care Inspector And Adjuster Golf Club Head Name Role Phone BenewahMary Alice davis Rajendra ROY Primary Care Provider Reason for Visit * Reason Onset Date Comments Questions 01/12/2014 Encounter Details Date Type Department Care Team (Late st Contact Info) Description 01/12/2014 Telephone [place] [address] Chen Valencia, RN Questions Social History Tobacco [...] filedocumented in this encounter Care Teams Inspector And Adjuster Golf Club Head Relationship Specialty Start Date End Date Mary Alice Cage APRN PCP - General 10/12/11 11/12/18 documented as of this encounter
--- OUTSIDE RECORDS SUMMARY | 2024-07-24 00:54 | XMS_ITS | Encounter Summary ---
[place] [address] Care Team Providers Care Corrections Cadet Name Role Phone Mary Alice Domingo MANUELA Primary Care Provider [phone] Encounter Details Date Type Department Care Team (Latest Contact Info) Description 09/08/2013 9:14 AM EST - 09/09/2013 5:00 PM [facility] Hospital Encounter [address] [place] [address] Rios Gonzalez MD [facility] [place] [address] Herniated nucleus pulposus, C6-7; Rhinitis Discharge Disposition: [...] them. 3. You should also take an jvzv-fbp-bnmocgz stool softener, such as Colace or Senna, [...] of your pain medication, please contact the [facility] Prescription Lineat [phone]. PRESCRIPTION RENEWAL REQUESTS CAN TAKE UP TO 3 DAYS TO FILL. YOU WILL BE REQUIRED TO PATIENT SAFETY MANAGER YOUR NARCOTIC REFILL PRESCRIPTION IN PERSON AT [facility] OR IT CAN BE MAILED TO YOUR PHARMACY. [place] J Collar Instructions: 1. You are being [...] against the skin, please call the [facility] Nursing Line at the number below. 5. [...] fallen off already. PLEASE CALL US AT [phone] TO SPEAK WITH A SPINE CENTER NURSE [...] Important Phone Numbers: Clinical issues, nurse questions: [phone] Medication renewals: [phone] Appointments for Marielena Gonzalez: [phone] Follow Up Appointments: You will have follow-up appointments at [facility] as indicated in the ???Future Appointments and [...] 1:00 PM Justin Starkey MD Leb Gastro [facility] If you have questions or concerns: [...] been followed by nursing and the ortho BAR FINISH OPERATOR Mahnaz Fischer. The patients last void was 400cc with a PVR of 184cc. The ortho BAR FINISH OPERATOR is aware of. * Isidoro Quezada - [...] disabled amy, not employed, and lives in [place], [place]. Pt denies the need for VNAservices and feels she and her can manage. Pt requests a Jr FWW and has not preference so I have ordered from [facility] who will deliver to her room [...] General: NAD, awake/alert, responds to questions Neck: [place] J collar in place, left on with [...] Julita CASON. Patient ready for transfer to [facility] [place]ray. documented in this encounter [...] 11/04/2012 LAPAROSCOPIC CHOLECYSTECTOMY WITH CHOLANGIOGRAM performed by Aebl Carlton MD at [facility] OR ??? Arthrodesis, ant interbody,decompression; cervical below c2 09/08/2013 ARTHRODESIS, ANT INTERBODY,DECOMPRESSION; CERVICAL BELOW C2 performed by Rios Gonzalez MD at [facility] ??? Arthrd ant interdy cervcl belw c2 ea addl ntrspc 09/08/2013 @ARTHRODESIS ANT INTERBDY CERVCL BELOW C2 EA ADDL INTRSPACE performed by Rios Gonzalez MD at [facility] ??? Anterior instrumentation 2-3 vertebral segments 09/08/2013 @ANT. SPINAL INSTRUMENTATION, 2-3 VERTEBRA, SEGMENTED performed by Rios Gonzalez MD at [facility] ??? Allograft for spine surgery only structural 09/08/2013 ALLOGRAFT FOR SPINE SURGERY ONLY; STRUCTUAL performed by Rios Gonzalez MD at [facility] Social History: Patient lives [...] assisting as necessary, i did provide a head transfer clerk per her request. ?? Reviewed cervical collar [...] training Total timed interventions: 10 minutes Pager: [phone] BRENDON KINCAID OT 09/09/2013 Occupational Therapy Rehabilitation [...] performed by Abel Carlton MD at [facility] ??? Arthrodesis, ant interbody,decompression; cervical below c2 09/08/2013 ARTHRODESIS, ANT INTERBODY,DECOMPRESSION; CERVICAL BELOW C2 performed by Rios Gonzalez MD at [facility] ??? Arthrd ant interdy cervcl belw c2 ea addl ntrspc 09/08/2013 @ARTHRODESIS ANT INTERBDY CERVCL BELOW C2 EA ADDL INTRSPACE performed by Rios Gonzalez MD at [facility] ??? Anterior instrumentation 2-3 vertebral segments 09/08/2013 @ANT. SPINAL INSTRUMENTATION, 2-3 VERTEBRA, SEGMENTED performed by Rios Gonzalez MD at [facility] ??? Allograft for spine surgery only structural 09/08/2013 ALLOGRAFT FOR SPINE SURGERY ONLY; STRUCTUAL performed by Rios Gonzalez MD at [facility] Social History: Patient is disabled and lives with her significant other in a mobile home in [place], [place]. 10 steps to enter with kait [...] treatment: 0 minutes RE LAY PT Pager: [phone] * Plan of Care - Keren Hammond [...] The patient was instructed to wear a [place] J at all times. These parameters were reinforced by physical therapy. The patient???s GAME TECHNICIAN was discontinued on POD#1 and was transitioned [...] them. 3. You should also take an ltsk-hpl-zqgbsti stool softener, such as Colace or Senna, [...] of your pain medication, please contact the [facility] Prescription Lineat [phone]. PRESCRIPTION RENEWAL REQUESTS CAN TAKE UP TO 3 DAYS TO FILL. YOU WILL BE REQUIRED TO PATIENT SAFETY MANAGER YOUR NARCOTIC REFILL PRESCRIPTION IN PERSON AT [facility] OR IT CAN BE MAILED TO YOUR PHARMACY. [place] J Collar Instructions: 1. You are being [...] pressing against the skin, please call the [facility] Nursing Line at the [...] fallen off already. PLEASE CALL US AT [phone] TO SPEAK WITH A SPINE CENTER NURSE [...] Important Phone Numbers: Clinical issues, nurse questions: [phone] Medication renewals: [phone] Appointments for Marielena Gonzalez: [phone] Follow Up Appointments: You will have follow-up appointments at [facility] as indicated in the ???Future Appointments and [...] 11:20 AM Rios Gonzalez MD Leb Spine [facility] 11/24/2013 1:00 PM Justin Starkey MD [facility] Gastro [facility] If you have questions or concerns: Saturday through Saturday, 8 AM- 5 PM, please call Dr. Gonzalez's office at . If it is after 5 PM or on the weekend, please call and ask for orthopedic resident on-call to be paged. Future Appointments and Orders Future Appointments: Provider: Department: Dept Phone: Center: 10/05/2013 11:20 AM Rios Gonzalez MD Spine Center [phone] [facility] 11/24/2013 1:00 PM Justin Starkey MD Gastroenterology [phone] [facility] Primary Care Provider: MARY ALICE DOMINGO APRN [phone] Inpatient Provider Contact Information: If you have questions or concerns: Saturday through Saturday, 8 AM- 5 PM, please call Dr. Gonzalez's office at . If it is after 5 PM or on the weekend, please call and ask for orthopedic resident on-call to be paged. Electronically Signed by: KIARA GAMEZ 09/09/2013 * Op Note - Rios Gonzalez MD - 09/08/2013 2:55 PM EST [facility] Operative Note Patient Name: Poppy Mclaughlin : [id number] MR#: [id number] Case Date: 09/08/2013 Surgeon: Surgeon(s) and Role: [...] Operative Note Patient Name: Poppy Mclaughlin : [id number] MR#: [id number] Case Date: 09/08/2013 Surgeon: Surgeon(s) and Role: * Rios Gonzalez MD - Primary * Vito Kumari MD - Resident Preoperative diagnosis: Cervical radiculopathy Postoperative diagnosis: Cervical radiculopathy Procedure(s): C5-7 ACDF (28844, 30453, 90497, 32417) Anesthesia: General Findings: There was bilateral foraminal [...] intervals supplied above were not validated at [facility]. Results from pediatric patients should be interpreted [...] 09/08/2013 10:19 PM EST 0.5 mg multivitamin Vzkp-Wg-RF-Min (THERAPEUTIC-M) 27-0.4 mg tablet 1 tablet 1 [...] Prophylaxis 1999 (New Bag - Provider: Keren Hmamond RN - Comment: Dose in OR at [...] (Given - Provider: Keren Hammond RN) multivitamin Ldlv-Pp-AM-Min (THERAPEUTIC-M) 27-0.4 mg tablet 1 tablet (CANCELED) [...] RN)1119 (See Alternative - Provider: Nissa Bah, KMALA)1548 (See Alternative - Provider: Felipa Noble, KAMLA) [...] Provider: Keren Hammond RN)1119 (Given - Provider: Nisas Bah, KAMLA)1548 (Given - Provider: Felipa Noble, [...] Routine documented in this encounter Care Teams Corrections Cadet Relationship Specialty Start Date End Date Mary Alice Domingo APRN PCP - General 10/12/11 11/12/18 documented as of this encounter
--- OUTSIDE RECORDS SUMMARY | 2024-07-24 00:54 | XMS_ITS | Encounter Summary ---
[place] [address] Care Team Providers Care Fruit Shipper Name Role Phone EmeryMary Alice davis MANUELA Primary Care Provider [phone] Reason for Visit * Reason Comments Low Back Pain Bilateral Leg Pain Encounter Details Date Type Department Care Team (Latest Contact Info) Description 07/07/2014 10:00 AM EST Office [place] [address] Rios Acuna MD [facility] [place] [address] Radiculopathy of lumbar region Discharge Disposition: Home [...] Prothrombin Time 12.0(L) 12.5 - 15.5 sec [facility] Comment: [facility] Transfusion Committee Guidelines: INR less than [...] intervals supplied above were not validated at [facility]. Results from pediatric [...] the following links into your internet browser. [email or web address] Blood specimen (specimen) 08/17/2014 10:17 AM EST 08/17/2014 10:25 AM EST Narrative Resulting Agency Comment Spec In Lab Rios Acuna MD CHEMISTRY ORDERABLES [facility] [employer] * SCAN DOC: ECG (08/10/2014 12:00 AM EST) Scanning Provider MEDIA MGR SCAN EXT O RDR/RSLT documented in this encounter Visit Diagnoses Diagnosis Radiculopathy of lumbar region Thoracic or lumbosacral neuritis or radiculitis, unspecified Radiculopathy of lumbar region Thoracic or lumbosacral neuritis or radiculitis, unspecified documented in this encounter Care Teams Fruit Shipper Relationship Specialty Start Date End Date Mary Alice Cage APRN PCP - General 10/12/11 11/12/18 documented as of this encounter
--- OUTSIDE RECORDS SUMMARY | 2024-07-24 00:54 | XMS_ITS | Encounter Summary ---
Author Organization [facility] [address] Care Team Providers Care Administrative Assistant Coordinator Name Role Phone Mary Alice Domingo MANUELA Primary Care Provider [phone] Reason for Visit * Reason Comments Follow-up Encounter Details Date Type Department Care Team (Late st Contact Info) Description 11/24/2013 1:00 PM EDT [place] [address] Justin Starkey MD [facility] [place] [address] IBS (irritable bowel syndrome) (Primary Dx); Diarrhea [...] 53 yrs, 1960 PCP: MARY ALICE DOMINGO END MATCHER: NONE REASON FOR VISIT PRIOR OFFICE VISITS [...] HISTORY 1. Emergency hernia repair May 2011, [place]. 2. Cholecystectomy 11/24/12. 3. Spinal fusion surgery [...] WITH PATIENT Total Minutes: 30 Minutes of Aqvf-jo-Cpdz Counseling: The entire visit was spent in sbrt-ad-rufi counseling. I will see the patient back in followup in six months. Justin Starkey, PhD, MD baby stroller rental clerk, [facility] [employer] Section of Gastroenterology and Hepatology [facility] [address] V: [phone] F: [phone] MICKY/mian CC/EC: PCP - staff msg copy 11/27/13 documented in this encounter Plan of Treatment Not on file documented as of this encounter Visit Diagnoses Diagnosis IBS (irritable bowel syndrome)- Primary Irritable bowel syndrome Diarrhea documented in this encounter Care Teams Administrative Assistant Coordinator Relationship Specialty Start Date End Date Mary Alice Domingo APRN PCP - General 10/12/11 11/12/18 documented as of this encounter
--- OUTSIDE RECORDS SUMMARY | 2024-07-24 00:54 | XMS_ITS | Encounter Summary ---
Author Organization [facility] [place] [address] Care Team Providers Care Clinical Neuropsychologist Name Role Phone Cb Florence Primary Care Provider [phone] Reason for Visit * Reason Onset Date Comments Medication Refill 10/01/2013 Encounter Details Date Type Department Care Team (Late st Contact Info) Description 10/01/2013 Ref[place] [address] Malia Vidal APRN [facility] DR GASTROENTER[place] [address] Social History Tobacco Use Types Packs/Day Years [...] filedocumented in this encounter Care Teams Clinical Neuropsychologist Relationship Specialty Start Date End Date Cb Florence PA [address] [place] [address] PCP - General Family Medicine 04/08/20 documented as of this encounter
--- OUTSIDE RECORDS SUMMARY | 2024-07-24 00:54 | XMS_ITS | Encounter Summary ---
[place] [address] Care Team Providers Care Chassis Engineer Name Role Phone Mary Alice Cage Rajendra ROY Primary Care Provider [phone] Reason for Visit * Reason Onset Date Comments Prior Authorization 11/30/2013 xifaxan Encounter Details Date Type Department Care Team (Late st Contact Info) Description 11/30/2013 Tele[place] [address] Debbie Skinner, research environmental scientist (xifaxan ) Social History Tobacco Use Types [...] for 10 days Insurance & Phone #: [place] [phone] ID #: [id number] Trialed (dosage, frequency): neomycin Notes: PA approved - pharmacy informed. documented in this encounter Plan of Treatment Not on file documented as of this encounter Visit Diagnoses Not on filedocumented in this encounter Care Teams Chassis Engineer Relationship Specialty Start Date End Date Mary Alice Cage APRN PCP - General 10/12/11 11/12/18 documented as of this encounter
--- OUTSIDE RECORDS SUMMARY | 2024-07-24 00:54 | XMS_ITS | Encounter Summary ---
[place] [address] Care Team Providers Care Budget Accountant Name Role Phone [place] Mary Alice Rajendra ROY Primary Care Provider Reason for Visit * Reason Onset Date Comments Neck And Arm Pain With Numbness 04/05/2014 bilat subsequent to slipping and falling three steps on bleacher Encounter Details Date Type Department Care Team (Late st Contact Info) Description 04/05/2014 Telephone [place] [address] Chen Valencia, RN Neck And [...] on filedocumented in this encounter Care Teams Budget Accountant Relationship Specialty Start Date End Date Mary Alice Cage APRN PCP - General 10/12/11 11/12/18 documented as of this encounter
--- OUTSIDE RECORDS SUMMARY | 2024-07-24 00:54 | XMS_ITS | Encounter Summary ---
[place] [address] Care Team Providers Care Dental Equipment Installer And Servicer Name Role Phone PortageMary Alice davis Rajendra ROY Primary Care Provider [phone] Reason for Visit * Reason Onset Date Comments Medication Refill 10/16/2013 Encounter Details Date Type Department Care Team (Late st Contact Info) Description 10/16/2013 [place] [address] Chen Valencia, RN Social History Tobacco Use [...] filedocumented in this encounter Care Teams Dental Equipment Installer And Servicer Relationship Specialty Start Date End Date Mary Alice Cage APRN PCP - General 10/12/11 11/12/18 documented as of this encounter
--- OUTSIDE RECORDS SUMMARY | 2024-07-24 00:54 | XMS_ITS | Encounter Summary ---
[place] [address] Care Team Providers Care Electrical Drafter Name Role Phone CowleyMary Alice davis MANUELA Primary Care Provider [phone] Encounter Details Date Type Department Care Team (Late st Contact Info) Description 05/05/2014 Telephone [place] [address] Erika Etienne, RN Social History Tobacco Use [...] filedocumented in this encounter Care Teams Electrical Drafter Relationship Specialty Start Date End Date Mary Alice Cage APRN PCP - General 10/12/11 11/12/18 documented as of this encounter
--- OUTSIDE RECORDS SUMMARY | 2024-07-24 00:54 | XMS_ITS | Encounter Summary ---
[place] [address] Care Team Providers Care Air Sampling And Monitoring Name Role Phone Mary Alice Cage APRN Primary Care Provider [phone] Encounter Details Date Type Department Care Team (Late st Contact Info) Description 03/23/2014 Telephone [place] [address] Alida Tabares V Social History Tobacco Use [...] filedocumented in this encounter Care Teams Air Sampling And Monitoring Relationship Specialty Start Date End Date Mary Alice Cage APRN PCP - General 10/12/11 11/12/18 documented as of this encounter
--- OUTSIDE RECORDS SUMMARY | 2024-07-24 00:54 | XMS_ITS | Encounter Summary ---
[place] [address] Care Team Providers Care Travel Sales Consultant Name Role Phone Mary Alice Domingo APRN Primary Care Provider [phone] Encounter Details Date Type Department Care Team (Latest Contact Info) Description 06/01/2014 1:00 PM EDT Procedure visit [place] [address] CLINIC, Mary Alice Garcia, RN Fecal incontinence [...] 53 yrs, 1960 PCP: MARY ALICE DOMINGO TOBACCO DRIER OPERATOR: NONE STUDY DATE: 06/01/14 PROVIDER: [place] ([id number]) INDICATION Fecal incontinence. METHODS An anorectal manometry study was performed in a supervised setting, after verbal consent, using KitchIn module with the TourPal software. A solid-state, four-channel circumferential transducer was [...] related to hypervigilance. Justin Starkey, PhD, MD buddhist monk, [facility] [employer] Section of Gastroenterology and Hepatology [facility] [address] V: [phone] F: [phone] MICKY/mian EC/CC: PCP - staff msg copy [...] feces documented in this encounter Care Teams Travel Sales Consultant Relationship Specialty Start Date End Date Mary Alice Domingo APRN PCP - General 10/12/11 11/12/18 documented as of this encounter
--- OUTSIDE RECORDS SUMMARY | 2024-07-24 00:54 | XMS_ITS | Encounter Summary ---
Author [facility] [address] Care Team Providers Care Metal Or Wood Blocker Name Role Phone Cb Florence Primary Care Provider [phone] Reason for Visit * Reason Onset Date Comments Medication Refill 09/15/2013 Encounter Details Date Type Department Care Team (Latest Contact Info) Description 09/15/2013 Refill Initial Mahnaz Fischer PA [facility] [place] [address] Social History Tobacco Use Types Packs/Day Years [...] filedocumented in this encounter Care Teams Metal Or Wood Blocker Relationship Specialty Start Date End Date Cb Florence PA [address] [place], [place] [address] PCP - General Family Medicine 04/08/20 documented as of this encounter
--- OUTSIDE RECORDS SUMMARY | 2024-07-24 00:54 | XMS_ITS | Encounter Summary ---
Author Organization [facility] [address] Care Team Providers Care Highway Maintenance Technician Name Role Phone Mary Alice Cage APRN Primary Care Provider Reason for Visit * Reason Comments Medication Refill Encounter Details Date Type Department Care Team (Late st Contact Info) Description 10/21/2013 Ref[place] [address] Samra Goodson APRN [facility] [place] [address] Social History Tobacco Use Types Packs/Day Years [...] on filedocumented in this encounter Care Teams Highway Maintenance Technician Relationship Specialty Start Date End Date Mary Alice Cage APRN PCP - General 10/12/11 11/12/18 documented as of this encounter
--- OUTSIDE RECORDS SUMMARY | 2024-07-24 00:54 | XMS_ITS | Encounter Summary ---
[place] [address] Care Team Providers Care Plastic Cnc Machine Operator Name Role Phone Mary Alice Cage APRN Primary Care Provider [phone] Reason for Visit * Reason Onset Date Comments Medication Refill 06/11/2014 Encounter Details Date Type Department Care Team (Late st Contact Info) Description 06/11/2014 Ref[place] [address] Renetta Greenfield MA GASTROENTEROLOGY DEPT Social History [...] on filedocumented in this encounter Care Teams Plastic Cnc Machine Operator Relationship Specialty Start Date End Date Mary Alice Cage APRN PCP - General 10/12/11 11/12/18 documented as of this encounter
--- OUTSIDE RECORDS SUMMARY | 2024-07-24 00:54 | XMS_ITS | Encounter Summary ---
Author Organization [facility] [address] Care Team Providers Care Shoe Clerk Name Role Phone Sebastian Mary Alice Rajendra ROY Primary Care Provider [phone] Reason for Referral * Consultation (Routine) - Closed Specialty Diagnoses / Procedures Referred By Chava alejo Referred To Contact Gastroenterology Diagnoses Bloat Esophageal reflux Diarrhea IBS (irritable bowel syndrome) Justin Starkey MD [facility] [place] [address] [facility] [place] [address] [place] [address] Referral ID Status Reason Start Date Expiration Date V isits Requested Visits Authorized [id number] Closed Consult, Test & Treat 05/20/2014 11/16/2014 1 1 Encounter Details Date Type Department Care Team (Late st Contact Info) Description 05/20/2014 11:00 AM EDT [place] [address] Justin Starkey MD [facility] 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 She has one or two good [...] is working on disability forms with her data analysis assistant. A treatment plan is outlined below. ALLERGIES/ADR See eD-H; reviewed. MEDICATIONS See eD-H; reviewed. PAST MEDICAL HISTORY 1. See prior records. 2. IBS with diarrhea. 3. 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 5. Reflux. 6. Chronic back pain. PAST SURGICAL HISTORY 1. Emergency hernia repair May 2011, Accident. 2. Cholecystectomy 11/24/12. 3. Cervical spine fusion [...] WITH PATIENT Total Minutes: 40 Minutes of Anwd-mx-Rqnp Counseling: The entire visit was spent in jmss-fx-uths counseling and coordination of care. Justin Starkey, PhD, MD belt turner, [facility] [employer] [facility] Section of Gastroenterology and Hepatology [facility] [address] V: [phone] F: [phone] MICKY/mian CC/EC: PCP - staff msg copy [...] syndrome documented in this encounter Care Teams Shoe Clerk Relationship Specialty Start Date End Date Mary Alice Domingo APRN PCP - General 10/12/11 11/12/18 documented as of this encounter
--- OUTSIDE RECORDS SUMMARY | 2024-07-24 00:54 | XMS_ITS | Encounter Summary ---
[place] [address] Care Team Providers Care Account Support Rep Name Role Phone Niles Mary Alicepham Drew APRN Primary Care Provider [phone] Reason for Referral * Consultation (Routine) - Closed Specialty Diagnoses / Procedures Referred By Chava alejo Referred To Contact Pain Management Diagnoses Radiculopathy of lumbar region Rios Acuna MD [facility] [place] [place] [address] [facility] [address] [place] [address] Referral ID Status Reason Start Date Expiration Date V isits Requested Visits Authorized [id number] Closed Assume Subset of Care 04/19/2014 10/16/2014 1 1 Reason for Visit * Reason Onset Date Comments Other 04/19/2014 Encounter Details Date Type Department Care Team (Late st Contact Info) Description 04/19/2014 Telephone [place] [address] Lacey Steiner, RN Other Social [...] unspecified documented in this encounter Care Teams Account Support Rep Relationship Specialty Start Date End Date Mary Alice Cage APRN PCP - General 10/12/11 11/12/18 documented as of this encounter
--- OUTSIDE RECORDS SUMMARY | 2024-07-24 00:54 | XMS_ITS | Encounter Summary ---
Author Organization [facility] [address] Care Team Providers Care Message Broker Developer Name Role Phone Mary Alice Cage APRN Primary Care Provider [phone] Reason for Visit * Reason Onset Date Comments Medication Refill 12/04/2013 Encounter Details Date Type Department Care Team (Late st Contact Info) Description 12/04/2013 Refill [place] [address] uJstin Starkey MD [facility] [place] [address] Social History Tobacco Use Types Packs/Day Years [...] on filedocumented in this encounter Care Teams Message Broker Developer Relationship Specialty Start Date End Date Mary Alice Cage APRN PCP - General 10/12/11 11/12/18 documented as of this encounter
--- OUTSIDE RECORDS SUMMARY | 2024-07-24 00:54 | XMS_ITS | Encounter Summary ---
Author Organization [facility] [address] Care Team Providers Care Straw Hat Brusher Name Role Phone Mary Alice Cage APRN Primary Care Provider [phone] Reason for Visit * Reason Comments Medication Refill Encounter Details Date Type Department Care Team (Late st Contact Info) Description 10/21/2013 [place] [address] Malia Viadl GOLF CLUB ASSEMBLER [facility] [place] [address] Social History Tobacco Use Types Packs/Day Years [...] on filedocumented in this encounter Care Teams Straw Hat Brusher Relationship Specialty Start Date End Date Mary Alice Cage APRN PCP - General 10/12/11 11/12/18 documented as of this encounter
--- OUTSIDE RECORDS SUMMARY | 2024-07-24 00:54 | XMS_ITS | Encounter Summary ---
[place] [address] Care Team Providers Care Cabin Cleaner Name Role Phone ShelbyMary Alice davis Rajendra ROY Primary Care Provider Reason for Referral * Consultation (Routine) - Closed Specialty Diagnoses / Procedures Referred By Chava t Referred To Contact Pain Management Diagnoses Radiculopathy of lumbar region Rios Acuna MD [facility] [place] [address] [facility] [address] [place] [address] Referral ID Status Reason Start Date Expiration Date V isits Requested Visits Authorized [id number] Closed Consult, Test & Treat 05/17/2014 11/13/2014 1 1 Reason for Visit * Reason Onset Date Comments Other 05/17/2014 response to inje ction. Encounter Details Date Type Department Care Team (Late st Contact Info) Description 05/17/2014 Telephone [place] [address] Milvia Fernandez, RN Other (response [...] unspecified documented in this encounter Care Teams Cabin Cleaner Relationship Specialty Start Date End Date Mary Alice Cage APRN PCP - General 10/12/11 11/12/18 documented as of this encounter
--- OUTSIDE RECORDS SUMMARY | 2024-07-24 00:54 | XMS_ITS | Encounter Summary ---
Author Organization [facility] Address [facility] [place] [address] Care Team Providers Care Data Warehousing Engineer Name Role Phone Mary Alice Cage APRN Primary Care Provider [phone] Encounter Details Date Type Department Care Team (Latest Contact Info) Description 03/15/2014 10:02 AM EDT - 03/15/2014 11:59 PM EDT Hospital Encounter XRay at [address] [place] [address] Herniated nucleus pulposus, C6-7 Right, S/P C5-7 [...] myelopathy documented in this encounter Care Teams Data Warehousing Engineer Relationship Specialty Start Date End Date Mary Alice Cage APRN PCP - General 10/12/11 11/12/18 documented as of this encounter
--- OUTSIDE RECORDS SUMMARY | 2024-07-24 00:54 | XMS_ITS | Encounter Summary ---
[place] [address] Care Team Providers Care Timber Mill Worker Name Role Phone Mary Alice Cage MANUELA Primary Care Provider [phone] Reason for Visit * Reason Onset Date Comments Medication Refill 10/01/2013 hydrocodone/ac etaminophen 5/325mg. Encounter Details Date Type Department Care Team (Late st Contact Info) Description 10/01/2013 Refill [facility] [place] [phone] Rios Acuna MD [facility] [place] [address] Social History Tobacco Use Types Packs/Day Years [...] on filedocumented in this encounter Care Teams Timber Mill Worker Relationship Specialty Start Date End Date Mary Alice Cage APRN PCP - General 10/12/11 11/12/18 documented as of this encounter
--- OUTSIDE RECORDS SUMMARY | 2024-07-24 00:54 | XMS_ITS | Encounter Summary ---
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 I will plan to see [...] myelopathy documented in this encounter Care Teams Production Ski Repairer Relationship Specialty Start Date End Date Mary Alice Cage APRN PCP - General 10/12/11 11/12/18 documented as of this encounter
--- OUTSIDE RECORDS SUMMARY | 2024-07-24 00:54 | XMS_ITS | Encounter Summary ---
[place] [address] Care Team Providers Care Hose Turner Name Role Phone Mary Alice Cage MANUELA Primary Care Provider [phone] Reason for Visit * Reason Comments Neck Pain Mid Back Pain Low Back Pain Encounter Details Date Type Department Care Team (Late st Contact Info) Description 03/15/2014 11:00 AM EDT Office [place] [address] Rios Acuna MD [facility] [place] [address] Herniated nucleus pulposus, C6-7 Right, S/P C5-7 [...] of the clinical situation. (Reference-Jarvik et al, [id number]) Findings: (prevalence in patients without low back [...] myelopathy documented in this encounter Care Teams Hose Turner Relationship Specialty Start Date End Date Mary Alice Cage APRN PCP - General 10/12/11 11/12/18 documented as of this encounter
--- OUTSIDE RECORDS SUMMARY | 2024-07-24 00:54 | XMS_ITS | Encounter Summary ---
Author Organization [facility] Address [facility] [place] [address] Care Team Providers Care Tin Recovery Worker Name Role Phone Mary Alice Cage APRN Primary Care Provider [phone] Encounter Details Date Type Department Care Team (Latest Contact Info) Description 10/05/2013 10:23 AM EST - 10/05/2013 11:59 PM [facility] Hospital Encounter XRay at [address] [place] [address] Herniated nucleus pulposus, C6-7 Right, with degenderative [...] myelopathy documented in this encounter Care Teams Tin Recovery Worker Relationship Specialty Start Date End Date Mary Alice Cage APRN PCP - General 10/12/11 11/12/18 documented as of this encounter
--- OUTSIDE RECORDS SUMMARY | 2024-07-24 00:54 | XMS_ITS | Encounter Summary ---
[place] [address] Care Team Providers Care One Piece Expansion Maker Hand Name Role Phone Mary Alice Cage MANUELA Primary Care Provider [phone] Reason for Visit * Reason Comments Low Back Pain Encounter Details Date Type Department Care Team (Latest Contact Info) Description 04/07/2014 4:00 PM EDT Office [place] [address] Rios Acuna MD [facility] [place] [address] Radiculopathy of lumbar region (Primary Dx) Discharge [...] Patient Instructions * Patient Instructions* Magda Huff, BRUSH MACHINE SETTER - 04/07/2014 5:00 PM EDT Images from the original note were not included. [facility] Stopping Smoking: After Your Visit Your Care [...] a smoking cessation program, such as the [employer]'s [place] from Smoking program. ?? Set a quit [...] in several forms, many of them available pmdy-btc-xrdridk: ?? Nicotine patches ?? Nicotine gum and [...] more? Visit our health information library at [email or web address] You can also view health information on [employer], your personal patient account. Log in or sign up today. Enter Y522 in the search box to learn more about Stopping Smoking: After Your Visit. ?? [id number] [employer]. Care instructions adapted under license by [facility]. This care instruction is for use with your licensed healthcare professional. If you have questions about a medical condition or this instruction, always ask your healthcare professional. [employer] disclaims any warranty or liability for your use of this information. Content Version: 9.9.771428; Last Revised: March 17, 2013 documented in [...] unspecified documented in this encounter Care Teams One Piece Expansion Maker Hand Relationship Specialty Start Date End Date Mary Alice Cage APRN PCP - General 10/12/11 11/12/18 documented as of this encounter
--- OUTSIDE RECORDS SUMMARY | 2024-07-24 00:54 | XMS_ITS | Encounter Summary ---
[place] [address] Care Team Providers Care Building Analyst/Supervisor Name Role Phone BoulderMary Alice davis MANUELA Primary Care Provider [phone] Reason for Visit * Reason Onset Date Comments Other 05/05/2014 follow up to inj ection Encounter Details Date Type Department Care Team (Late st Contact Info) Description 05/05/2014 Telephone [place] [address] Lacey Steiner, RN Other (follow [...] on filedocumented in this encounter Care Teams Building Analyst/Supervisor Relationship Specialty Start Date End Date Mary Alice Cage APRN PCP - General 10/12/11 11/12/18 documented as of this encounter
--- OUTSIDE RECORDS SUMMARY | 2024-07-24 00:54 | XMS_ITS | Encounter Summary ---
[place] [address] Care Team Providers Care Propeller Engineer Name Role Phone [place] Lake[place] Alice davis Rajendra ROY Primary Care Provider [phone] Reason for Visit * Reason Onset Date Comments Prior Authorization 11/26/2013 dexilant Encounter Details Date Type Department Care Team (Late st Contact Info) Description 11/26/2013 Telephone [place] [address] Debbie Skinner, concrete boom pump operator (dexilant ) Social History Tobacco Use [...] 1 by mouth daily Insurance & Phone #:pr medicaid [phone] ID #: Trialed (dosage, frequency): Prilosec, Aciphex Notes: KIARA approved for one year. documented in this encounter Plan of Treatment Not on file documented as of this encounter Visit Diagnoses Not on filedocumented in this encounter Care Teams Propeller Engineer Relationship Specialty Start Date End Date Mary Alice Cage APRN PCP - General 10/12/11 11/12/18 documented as of this encounter
--- OUTSIDE RECORDS SUMMARY | 2024-07-24 00:54 | XMS_ITS | Encounter Summary ---
[place] [address] Care Team Providers Care Case Packer And Sealer Name Role Phone Mary Alice Cage APRN Primary Care Provider Reason for Visit * Reason Comments Results Encounter Details Date Type Department Care Team (Late st Contact Info) Description 06/16/2014 Telephone [place] [address] Nina Hollingsworth, RN DEPT OF GASTROENTEROLOGY Results [...] filedocumented in this encounter Care Teams Case Packer And Sealer Relationship Specialty Start Date End Date Mary Alice Cage APRN PCP - General 10/12/11 11/12/18 documented as of this encounter
--- OUTSIDE RECORDS SUMMARY | 2024-07-24 00:54 | XMS_ITS | Encounter Summary ---
Author Organization [facility] Address [facility] Musa [place]hé[place] [address] Care Team Providers Care Crop Adjuster Name Role Phone Mary Alice Cage APRN Primary Care Provider Encounter Details Date Type Department Care Team (Latest Contact Info) Description 07/07/2014 8:52 AM EST - 07/07/2014 11:59 PM [facility] Hospital Encounter XRay at [address] [place] [address] Radiculopathy of lumbar region Social History Tobacco [...] [facility]Non-Drug; Combo Route) route daily. promethazine (PHENERGAN) 25 [...] unspecified documented in this encounter Care Teams Crop Adjuster Relationship Specialty Start Date End Date Mary Alice Cage APRN PCP - General 10/12/11 11/12/18 documented as of this encounter
--- OUTSIDE RECORDS SUMMARY | 2024-07-24 00:54 | XMS_ITS | Encounter Summary ---
[place] [address] Care Team Providers Care Mid Level Provider Name Role Phone Mary Alice Cage APRN Primary Care Provider [phone] Encounter Details Date Type Department Care Team (Late st Contact Info) Description 12/04/2013 Orders [place] [address] Rosaura Wolf, [facility] Social History Tobacco Use Types Packs/Day Years [...] on filedocumented in this encounter Care Teams Mid Level Provider Relationship Specialty Start Date End Date Mary Alice Cage APRN PCP - General 10/12/11 11/12/18 documented as of this encounter
--- OUTSIDE RECORDS SUMMARY | 2024-07-24 00:54 | XMS_ITS | Encounter Summary ---
[place] [address] Care Team Providers Care Vehicle Cost Engineer Name Role Phone NilesMary Alice Rajendra ROY Primary Care Provider [phone] Reason for Referral * Physical Therapy (Routine) - Closed by system - Referral Specialty Diagnoses / Procedures Referred By Contac t Referred To Contact Physical Therapy Diagnoses Herniated nucleus pulposus, C6-7 Rois Acuna MD [facility] [address] Referral ID Status Reason Start Date Expiration Date Visits Requested Visits Authorized [id number] Closed by system - Referral Evaluate and Treat 12/02/2013 05/31/2014 1 1 Reason for Visit * Reason Comments Follow Up Surgery Encounter Details Date Type Department Care Team (Late st Contact Info) Description 12/02/2013 11:20 AM EDT Office [place] [address] [facility] [place] [address] Herniated nucleus pulposus, C6-7 Right, S/P C5-7 [...] Patient Instructions * Patient Instructions* Magda Huff, CROP OR LIVESTOCK TENANT FARMER - 12/02/2013 11:09 AM EDT Images from the original note were not included. [facility] Stopping Smoking: After Your Visit Your Care [...] a smoking cessation program, such as the [employer]'s [place] from Smoking program. ?? Set a quit [...] in several forms, many of them available xlgq-eft-vtdgekp: ?? Nicotine patches ?? Nicotine gum and [...] more? Visit our health information library at [email or web address] [employer]/ACTION SPORTSo You can also view health information on [employer], your personal patient account. Log in or sign up today. Enter Y522 in the search box to learn more about Stopping Smoking: After Your Visit. ?? [id number] [employer]. Care instructions adapted under license by [facility]. This care instruction is for use with your licensed healthcare professional. If you have questions about a medical condition or this instruction, always ask your healthcare professional. [employer] disclaims any warranty or liability for your use of this information. Content Version: 9.9.414812; Last Revised: March 17, 2013 documented in [...] myelopathy documented in this encounter Care Teams Vehicle Cost Engineer Relationship Specialty Start Date End Date Mary Alice Cage APRN PCP - General 10/12/11 11/12/18 documented as of this encounter
--- OUTSIDE RECORDS SUMMARY | 2024-07-24 00:54 | XMS_ITS | Encounter Summary ---
Author Organization [facility] Address [facility] [address] Care Team Providers Care Compliance Consultant Name Role Phone Mary Alice Cage APRN Primary Care Provider [phone] Encounter Details Date Type Department Care Team (Latest Contact Info) Description 12/02/2013 9:59 AM EDT - 12/02/2013 11:59 PM EDT Hospital Encounter XRay at [address] [place] [address] Herniated nucleus pulposus, C6-7 Right, S/P C5-7 [...] myelopathy documented in this encounter Care Teams Compliance Consultant Relationship Specialty Start Date End Date Mary Alice Cage APRN PCP - General 10/12/11 11/12/18 documented as of this encounter
--- OUTSIDE RECORDS SUMMARY | 2024-07-24 00:54 | XMS_ITS | Encounter Summary ---
[place] [address] Care Team Providers Care Ecommerce Analyst Name Role Phone Mary Alice Cage APRN Primary Care Provider [phone] Reason for Visit * Reason Onset Date Comments Medication Refill 06/11/2014 Encounter Details Date Type Department Care Team (Late st Contact Info) Description 06/11/2014 Refill [place] [address] Renetta Greenfield MA GASTROENTEROLOGY DEPT Social History [...] on filedocumented in this encounter Care Teams Ecommerce Analyst Relationship Specialty Start Date End Date Mary Alice Cage APRN PCP - General 10/12/11 11/12/18 documented as of this encounter
--- OUTSIDE RECORDS SUMMARY | 2024-07-24 00:54 | XMS_ITS | Encounter Summary ---
[place] [address] Care Team Providers Care Mold Inspector Name Role Phone CrittendenMary Alice davis MANUELA Primary Care Provider [phone] Encounter Details Date Type Department Care Team (Late st Contact Info) Description 06/17/2014 Telephone [place] [address] Nina Hollingsworth, RN DEPT OF GASTROENTEROLOGY Social [...] the referral. Or francisco j PT in [place], if she wants (but I believe we're [...] on filedocumented in this encounter Care Teams Mold Inspector Relationship Specialty Start Date End Date Mary Alice Cage APRN PCP - General 10/12/11 11/12/18 documented as of this encounter
--- OUTSIDE RECORDS SUMMARY | 2024-07-24 00:54 | XMS_ITS | Encounter Summary ---
[place] [address] Care Team Providers Care Paint Prepper Name Role Phone NilesCariepham Drew APRN Primary Care Provider [phone] Encounter Details Date Type Department Care Team (Latest Contact Info) Description 04/07/2014 1:53 PM EDT - 04/07/2014 11:59 PM EDT Hospital [place] [address] [facility], DR CHILD Herniated nucleus pulposus, C6-7 [...] of the clinical situation. (Reference-Jarvik et al, [id number]) Findings: (prevalence in patients without low back [...] myelopathy documented in this encounter Care Teams Paint Prepper Relationship Specialty Start Date End Date Mary Alice Cage APRN PCP - General 10/12/11 11/12/18 documented as of this encounter
--- OUTSIDE RECORDS SUMMARY | 2024-07-24 00:54 | XMS_ITS | Encounter Summary ---
[place] [address] Care Team Providers Care Form Coverer Name Role Phone CialesMary Alice davis Rajendra ROY Primary Care Provider [phone] Reason for Visit * Reason Onset Date Comments Medication Refill 09/17/2013 refill post op pain meds. Encounter Details Date Type Department Care Team (Late st Contact Info) Description 09/17/2013 Refill [place] [address] Milvia Fernandez RN Social History Tobacco Use [...] able to have prescription picked up from [facility]. She states that she has tried to [...] on filedocumented in this encounter Care Teams Form Coverer Relationship Specialty Start Date End Date Mary Alice Cage APRN PCP - General 10/12/11 11/12/18 documented as of this encounter
--- OUTSIDE RECORDS SUMMARY | 2024-07-24 00:54 | XMS_ITS | Encounter Summary ---
Author Organization [facility] [place] [address] Care Team Providers Care Home Service Advisor Name Role Phone CallahanMary Alice davis MANUELA Primary Care Provider [phone] Encounter Details Date Type Department Care Team (Late st Contact Info) Description 05/17/2014 Orders [place] [address] José Manuel Irwin MD [facility] [place] [address] Social History Tobacco Use Types Packs/Day Years [...] a Non-reportable exam José Manuel Irwin MD [facility] FILM LIBRARY ORD ERABLES documented in this encounter Visit Diagnoses Not on filedocumented in this encounter Care Teams Home Service Advisor Relationship Specialty Start Date End Date Mary Alice Cage APRN PCP - General 10/12/11 11/12/18 documented as of this encounter
--- OUTSIDE RECORDS SUMMARY | 2024-07-24 00:54 | XMS_ITS | Encounter Summary ---
[place] [address] Care Team Providers Care Financial Health Counselor Name Role Phone Mary Alice Cage MANUELA Primary Care Provider Encounter Details Date Type Department Care Team (Late st Contact Info) Description 04/26/2014 [place]phone [place] [id number] Lexie Awad RN Social History Tobacco Use [...] RF patients with a pacemaker) on 04/28/2014. Photo Finisher: The patient was reminded that they need to have a cart driver accompany them to her procedure who [...] No Prior to checking in at [employer], please be sure to empty your bladder. Patient confirmed understanding that if they do not follow the above their instructions, their procedure is likely to be cancelled. Lexie Awad RN documented in this encounter Plan of Treatment Not on file documented as of this encounter Visit Diagnoses Not on filedocumented in this encounter Care Teams Financial Health Counselor Relationship Specialty Start Date End Date Mary Alice Cage APRN PCP - General 10/12/11 11/12/18 documented as of this encounter
--- OUTSIDE RECORDS SUMMARY | 2024-07-24 00:54 | XMS_ITS | Encounter Summary ---
Author Organization [facility] [place] [address] Care Team Providers Care Hearing Specialist Name Role Phone StearnsMary Alice davis Rajendra ROY Primary Care Provider [phone] Reason for Visit * Reason Comments Back Pain Encounter Details Date Type Department Care Team (Latest Contact Info) Description 06/01/2014 9:35 AM EDT Procedure [place] [address] [facility] [place] [address] Trochanteric bursitis, right Discharge Disposition: Home Social [...] 2. 3. Patient states they have a construction driver to transport after procedure? Yes 4. [...] this entire procedure. Kim Forbes DO, MPH [facility]-subspecialty board certification in Pain Medicine Attending Physician-Pain Management CC: MARY ALICE DOMINGO, EDUCATIONAL SPEECH LANGUAGE CLINICIAN [address] [place] [address] Rios Acuna MD [facility] [place] [address] documented in this encounter Plan of Treatment [...] this entire procedure. Kim Forbes DO, MPH [facility]-subspecialty board certification in Pain Medicine Attending Physician-Pain Management CC: MARY ALICE DOMINGO APRN [address] [place] [address] Rios Acuna MD [facility] [place] [address] Procedure Note Kim Forbes DO - 06/03/2014 [...] this entire procedure. Kim Forbes DO, MPH [facility]-subspecialty board certification in Pain Medicine Attending Physician-Pain Management CC: MARY ALICE DOMINGO APRN [address] [place] [address] Rios Acuna MD [facility] [place] [address] Kim Brown V, DO PROCEDURE/MINOR SURG ICAL ORDERABLES documented [...] mg documented in this encounter Care Teams Hearing Specialist Relationship Specialty Start Date End Date Mary Alice Domingo APRN PCP - General 10/12/11 11/12/18 documented as of this encounter
--- OUTSIDE RECORDS SUMMARY | 2024-07-24 00:55 | XMS_ITS | Encounter Summary ---
Author Organization [facility] [place] [place] [address] Care Team Providers Care Hand Ii Thermal Cutter Name Role Phone Mary Alice Cage AMNUELA Primary Care Provider [phone] Encounter Details Date Type Department Care Team (Late st Contact Info) Description 09/08/2013 11:02 AM EST Anesthesia Event [place] [address] Samra Zhong MD [facility] [place] [address] Anesthesia Record Procedure Summary Procedure Name Responsible [...] Adequate pain control, minimal nausea, no recall. Outside Laborer strength intact, hand paresthesias improved from baseline. [...] CHOLANGIOGRAM performed by Abel Carlton MD at [facility] MAIN OR History Substance Use Topics ??? [...] side of mouth. Remaining teeth poor condition [facility] Assessment: Patient is wearing No contact(s). IV [...] problems with Propofol during [place] [facility] [facility] [place]. HTN GERD - moderately well [...] with patient whom consented to blood products. [facility]. Assessment: documented in this encounter Plan of [...] mg documented in this encounter Care Teams Hand Ii Thermal Cutter Relationship Specialty Start Date End Date Mary Alice Cage APRN PCP - General 10/12/11 11/12/18 documented as of this encounter
--- OUTSIDE RECORDS SUMMARY | 2024-07-24 00:55 | XMS_ITS | Encounter Summary ---
Author Organization [facility] Address [facility] [place] [address] Care Team Providers Care Optic Fibre Drawer Name Role Phone Mary Alice Cage APRN Primary Care Provider [phone] Encounter Details Date Type Department Care Team (Latest Contact Info) Description 11/03/2012 12:04 PM EDT - 11/03/2012 11:59 PM EDT Hospital Encounter XRay at [address] [place] [address] Herniated nucleus pulposus, C6-7 Right, with degenderative [...] Sig Dispensed Refills Start Date End Date cholecalciferol, Vitamin D3, 400 unit tablet Take [...] myelopathy documented in this encounter Care Teams Optic Fibre Drawer Relationship Specialty Start Date End Date Mary Alice Cage APRN PCP - General 10/12/11 11/12/18 documented as of this encounter
--- OUTSIDE RECORDS SUMMARY | 2024-07-24 00:55 | XMS_ITS | Encounter Summary ---
Author Organization [facility] [place] [address] Care Team Providers Care Distribution Systems Serviceperson Name Role Phone Niles Mary Alicepham Drew APRN Primary Care Provider [phone] Reason for Visit * Reason Comments Follow-up Bloody noses once in a while Encounter Details Date Type Department Care Team (Late st Contact Info) Description 10/23/2012 9:45 AM EDT Follow-[place] [address] Samra Goodson MAIL READER [facility] [place] [address] Rhinitis (Primary Dx) Discharge Disposition: Home Social [...] this encounter Progress Notes * Samra Goodson, MAIL READER - 10/23/2012 10:16 AM EDT Date of Visit:10/23/2012 Location of Visit: Otolaryngology Clinic, [facility] Patient: Poppy Mclaughlin 1960, [id number] Chief Complaint: Poppy is a 51 year [...] GERD and is being followed by Malia Vidla. She does have a hx of seasonal [...] Return to clinic as needed. Samra WORKMAN [facility] Otolaryngology-Head and Neck Surgery [place], [place] [address] documented in this encounter Plan of Treatment Not on file documented as of this encounter Visit Diagnoses Diagnosis Rhinitis- Primary Chronic rhinitis documented in this encounter Care Teams Distribution Systems Serviceperson Relationship Specialty Start Date End Date Mary Alice Cage APRN PCP - General 10/12/11 11/12/18 documented as of this encounter
--- OUTSIDE RECORDS SUMMARY | 2024-07-24 00:55 | XMS_ITS | Encounter Summary ---
[facility] Organization [facility] [place] [address] Care Team Providers Care Medicine Teacher Name Role Phone Mary Alice Cage MANUELA Primary Care Provider [phone] Encounter Details Date Type Department Care Team (Late st Contact Info) Description 11/04/2012 1:47 PM EDT - 11/04/2012 3:45 PM EDT Surgery [place] [address] Abel Rhoades MD [facility] [place] [address] LAPAROSCOPIC CHOLECYSTECTOMY WITH CHOLANGIOGRAM (WRVU 11.47) Social [...] 101.3 F. The number for questions is [phone] before 5 PM weekdays and [phone] after 5 PM and weekends. Pain Medication: No driving for 8 hours after any dose of Percocet. You may use ibuprofen (motrin, advil) in addition if your pain is not totally controlled. Follow-up: A follow-up appointment will be scheduled with Dr. Rhoades in 4-6 weeks. The appointment will be mailed to you. Please call [phone] (clinic number for appointments) to confirm the [...] Rhoades MD - 11/04/2012 3:04 PM EDT [facility] [place] Patient Name: Poppy Pino : [id number] MR#: [id number] Case Date: 11/04/2012 Surgeon: Surgeon(s) and Role: [...] 10-mm port site was closed with interrupted dcrpgv-pm-jxcwu 0-Vicryl suture followed by running subcuticular 4-0 [...] 2:55 PM EDT) Surgical Pathology Report ? [facility] ? Provider: ?? ABEL RHOADES ? Pt. Name: ?? POPPY PINO ? Acc #: ?[id number] ?Pt. ? Col Date: ?? 11/04/2012 ? [...] MD PATHOLOGY/CYTOLOGY O RODDY Performing Organization Address [facility] Co de Phone Number VIKTOR TODD * Specimen to Pathology (surgical or derm) (11/04/2012 2:45 PM EDT) AP Specimen 11/04/2012 2:45 PM EDT 11/04/2012 2:45 PM EDT Narrative VIKTOR TODD - 11/04/2012 2:45 PM EDT Specimen requisition ordered. ??Separate Pathology report to follow Abel Rhoades MD PATHOLOGY/CYTOLOGY O RODDY Performing Organization Address [facility] Co de Phone Number VIKTOR [...] Routine documented in this encounter Care Teams Medicine Teacher Relationship Specialty Start Date End Date Mary Alice Cage APRN PCP - General 10/12/11 11/12/18 documented as of this encounter
--- OUTSIDE RECORDS SUMMARY | 2024-07-24 00:55 | XMS_ITS | Encounter Summary ---
Author Organization [facility] Address [facility] [place] [address] Care Team Providers Care Grease Rack Worker Name Role Phone Mary Alice Cage MANUELA Primary Care Provider [phone] Encounter Details Date Type Department Care Team (Latest Contact Info) Description 07/07/2013 7:28 AM EST - 07/07/2013 11:59 PM [facility] Hospital Encounter XRay at [address] [place] [address] CLINIC, Rios Morris MD [facility] [place] [address] Herniated nucleus pulposus, C6-7 Right, with degenderative [...] myelopathy documented in this encounter Care Teams Grease Rack Worker Relationship Specialty Start Date End Date Mary Alice Cage APRN PCP - General 10/12/11 11/12/18 documented as of this encounter
--- OUTSIDE RECORDS SUMMARY | 2024-07-24 00:55 | XMS_ITS | Encounter Summary ---
Author Organization [facility] [place] [address] Care Team Providers Care Bottle Capping Machine Operator Name Role Phone Mary Alice Domingo MANUELA Primary Care Provider [phone] Encounter Details Date Type Department Care Team (Late st Contact Info) Description 03/10/2013 2:30 PM EDT [place] [address] Justin Starkey MD [facility] [place] [address] Gas (Primary Dx); Bloating; Diarrhea Discharge Disposition: [...] 52 yrs, 1960 PCP: MARY ALICE DOMINGO LINK CUTTER: NONE MANAGER OF CORPORATE: [place] ([id number]) REFERRING PROVIDER(S) REASON FOR CONSULTATION I was asked to see her specifically for problems with recurrent gas and bloating. TIME SPENT WITH PATIENT A one-hour appointment was scheduled so that we could review her lengthy and complicated history; unfortunately, she showed up 30 minutes late. Total Minutes: 25 reviewing records at the time of our visit Minutes of Nlrf-tj-Jels Counseling: Greater than 30 minutes were spent in direct, lqcs-rd-bghw counseling. HISTORY OF PRESENT ILLNESS This is a 52-year-old woman sent for formal evaluation and a third opinion in gastroenterology. Thepatient was seen for quite some time by Dr. Keller, and has been actively followed by Malia Vidal who works in our GI division. In brief, the patient has had significant problems with gas and bloating since an emergency hernia repair at [facility] in May 2011. She received antibiotics during that procedure and afterwards. Since then, she has had problems with gas and bloating. She has undergone an exhaustive workup. This is all outlined in previous notes by Ms. Vidal. In brief, a colonoscopy at [facility] was normal; upper endoscopy at [facility] was normal; she had a CT scan at [facility] which was normal; an abdominal ultrasound here [...] history, family history. Justin Starkey, PhD, MD document control assistant, [employer] Section of Gastroenterology and Hepatology [facility] [place] [address] V: [phone] F: [phone] MICKY/mian EC/CC: PCP Malia Vidal APRN documented in this encounter Plan of Treatment Not on file documented as of this encounter Visit Diagnoses Diagnosis Gas- Primary Flatulence, eructation, and gas pain Bloating Flatulence, eructation, and gas pain Diarrhea documented in this encounter Care Teams Bottle Capping Machine Operator Relationship Specialty Start Date End Date Mary Alice Domingo APRN PCP - General 10/12/11 11/12/18 documented as of this encounter
--- OUTSIDE RECORDS SUMMARY | 2024-07-24 00:55 | XMS_ITS | Encounter Summary ---
[place] [address] Care Team Providers Care Meat And Poultry Inspector Name Role Phone Mary Alice Domingo MANUELA Primary Care Provider [phone] Encounter Details Date Type Department Care Team (Late st Contact Info) Description 09/08/2013 10:58 AM EST - 09/08/2013 2:26 PM EST Surgery [place] [address] Rios Gonzalez MD [facility] DR SPINE [place] [id number] ARTHRODESIS, ANT INTERBODY,DECOMPRESSIO N; CERVICAL BELOW C2 [...] them. 3. You should also take an ritd-elq-veznqnz stool softener, such as Colace or Senna, [...] your pain medication, please contact the [facility] Prescription Lineat [phone]. PRESCRIPTION RENEWAL REQUESTS CAN TAKE UP TO 3 DAYS TO FILL. YOU WILL BE REQUIRED TO ACTIVITIES OFFICER YOUR NARCOTIC REFILL PRESCRIPTION IN PERSON AT [facility] OR IT CAN BE MAILED TO YOUR PHARMACY. [place]a [place] J Collar Instructions: 1. You are being [...] fallen off already. PLEASE CALL US AT [phone] TO SPEAK WITH A SPINE CENTER NURSE [...] Important Phone Numbers: Clinical issues, nurse questions: [phone] Medication renewals: [phone] Appointments for Marielena Gonzalez: [phone] Follow Up Appointments: [facility] [...] been followed by nursing and the ortho POST ACUTE CARE NURSE PRACTITIONER Mahnaz Fischer. The patients last void was 400cc with a PVR of 184cc. The ortho POST ACUTE CARE NURSE PRACTITIONER is aware of. * Isidoro Quezada - [...] disabled amy, not employed, and lives in [place], [place]. Pt denies the need for VNAservices and feels she and her can manage. Pt requests a Jr FWW and has not preference so I have ordered from [facility] who will deliver to her room this [...] General: NAD, awake/alert, responds to questions Neck: [place] Shosh[place] J collar in place, left on with [...] Julita CASON. Patient ready for transfer to [facility] for xray. documented in this encounter H&P [...] CHOLANGIOGRAM performed by Abel Carlton MD at [facility] MAIN OR ??? Arthrodesis, ant interbody,decompression; cervical below c2 09/08/2013 ARTHRODESIS, ANT INTERBODY,DECOMPRESSION; CERVICAL BELOW C2 performed by Rios Gonzalez MD at [facility] MAIN OR ??? Arthrd ant interdy cervcl belw c2 ea addl ntrspc 09/08/2013 @ARTHRODESIS ANT INTERBDY CERVCL BELOW C2 EA ADDL INTRSPACE performed by Rios Gonzalez MD at [facility] MAIN OR ??? Anterior instrumentation 2-3 vertebral segments 09/08/2013 @ANT. SPINAL INSTRUMENTATION, 2-3 VERTEBRA, SEGMENTED performed by Rios Gonzalez MD at [facility] [place] ??? Allograft for spine surgery only structural 09/08/2013 ALLOGRAFT FOR SPINE SURGERY ONLY; STRUCTUAL performed by Rios Gonzalez MD at [facility] MAIN OR Social History: Patient [...] assisting as necessary, i did provide a revenue stamp cutter per her request. ?? Reviewed cervical collar [...] training Total timed interventions: 10 minutes Pager: [phone] BRENDON KINCAID OT 09/09/2013 Occupational Therapy Rehabilitation [...] CHOLANGIOGRAM performed by Abel Carlton MD at [facility] MAIN OR ??? Arthrodesis, ant interbody,decompression; cervical below c2 09/08/2013 ARTHRODESIS, ANT INTERBODY,DECOMPRESSION; CERVICAL BELOW C2 performed by Rios Gonzalez MD at [facility] MAIN OR ??? Arthrd ant interdy cervcl belw c2 ea addl ntrspc 09/08/2013 @ARTHRODESIS ANT INTERBDY CERVCL BELOW C2 EA ADDL INTRSPACE performed by Rios Gonzalez MD at [facility] MAIN OR ??? Anterior instrumentation 2-3 vertebral segments 09/08/2013 @ANT. SPINAL INSTRUMENTATION, 2-3 VERTEBRA, SEGMENTED performed by Rios Gonzalez MD at [facility] [place] ??? Allograft for spine surgery only structural 09/08/2013 ALLOGRAFT FOR SPINE SURGERY ONLY; STRUCTUAL performed by Rios Gonzalez MD at [facility] MAIN OR Social History: Patient is disabled and lives with her significant other in a mobile home in [place], [place]. 10 steps to enter with kait [...] treatment: 0 minutes RE LAY, PT Pager: [phone] * Plan of Care - Keren Hammond [...] The patient was instructed to wear a [place] J at all times. These parameters were reinforced by physical therapy. The patient???s DOCKING PILOT was discontinued on POD#1 and was transitioned [...] them. 3. You should also take an hzbr-ihl-awpauws stool softener, such as Colace or Senna, [...] of your pain medication, please contact the [facility] Prescription Lineat [phone]. PRESCRIPTION RENEWAL REQUESTS CAN TAKE UP TO 3 DAYS TO FILL. YOU WILL BE REQUIRED TO ACTIVITIES OFFICER YOUR NARCOTIC REFILL PRESCRIPTION IN PERSON AT [facility] OR IT CAN BE MAILED TO YOUR PHARMACY. Y[place]a [place] J Collar Instructions: 1. You are being [...] pressing against the skin, please call the [facility] Nursing Line at the number below. [...] fallen off already. PLEASE CALL US AT [phone] TO SPEAK WITH A SPINE CENTER NURSE [...] Important Phone Numbers: Clinical issues, nurse questions: [phone] Medication renewals: [phone] Appointments for Marielena Gonzalez: [phone] Follow Up Appointments: [facility] [...] 11:20 AM Rios Gonzalez MD [facility] 11/24/2013 1:00 PM Justin Starkey MD [facility] If you have questions or concerns: Saturday through Saturday, 8 AM- 5 PM, please call Dr. Gonzalez's office at . If it is after 5 PM or on the weekend, please call and ask for orthopedic resident on-call to be paged. Future Appointments and Orders Future Appointments: Provider: Department: Dept Phone: Center: 10/05/2013 11:20 AM Rios Gonzalez MD [facility] Center [phone] [facility] 11/24/2013 1:00 PM Justin Starkey MD Gastroenterology [phone] [facility] Primary Care Provider: MARY ALICE DOMINGO APRN [phone] Inpatient Provider Contact Information: If you have questions or concerns: Saturday through Saturday, 8 AM- 5 PM, please call Dr. Gonzalez's office at . If it is after 5 PM or on the weekend, please call and ask for orthopedic resident on-call to be paged. Electronically Signed by: KIARA GAMEZ 09/09/2013 * Op Note - Rios Gonzalez MD - 09/08/2013 2:55 PM EST [facility] Operative Note Patient Name: Poppy Mclaughlin : [id number] MR#: [id number] Case Date: 09/08/2013 Surgeon: Surgeon(s) and Role: [...] Operative Note Patient Name: Poppy Mclaughlin : [id number] MR#: [id number] Case Date: 09/08/2013 Surgeon: Surgeon(s) and Role: * Rios Gonzalez MD - Primary * Vito Kumari MD - Resident Preoperative diagnosis: Cervical radiculopathy Postoperative diagnosis: Cervical radiculopathy Procedure(s): C5-7 ACDF (57078, 05049, 91260, 94926) Anesthesia: General Findings: There was bilateral foraminal [...] intervals supplied above were not validated at [facility]. Results from pediatric patients should [...] (Given - Provider: Keren Hammond RN) multivitamin Awfo-Jp-ZL-Min (THERAPEUTIC-M) 27-0.4 mg tablet 1 tablet (CANCELED) [...] Routine documented in this encounter Care Teams Meat And Poultry Inspector Relationship Specialty Start Date End Date Mary Alice Domingo APRN PCP - General 10/12/11 11/12/18 documented as of this encounter
--- OUTSIDE RECORDS SUMMARY | 2024-07-24 00:55 | XMS_ITS | Encounter Summary ---
Author Organization [facility] [address] Care Team Providers Care Supervisor Sheet Manufacturing Name Role Phone LeslieMary Alice davis Rajendra ROY Primary Care Provider [phone] Reason for Visit * Reason Onset Date Comments Medication Refill 12/08/2012 Encounter Details Date Type Department Care Team (Late st Contact Info) Description 12/08/2012 Refill [place] [address] Malia Vidal APRN [facility] [place] [address] Social History Tobacco Use Types Packs/Day Years [...] (LOMOTIL) 2.5-0.025 mg per tablet [TRACIA [place]'YAIMA, REGISTRATION MANAGER] dicyclomine (BENTYL) 10 mg capsule [TRACIA [place]'YAIMA, REGISTRATION MANAGER] Preferred pharmacy: [facility] [address] [place] [address] Comment: documented in this encounter Plan of Treatment Not on file documented as of this encounter Visit Diagnoses Not on filedocumented in this encounter Care Teams Supervisor Sheet Manufacturing Relationship Specialty Start Date End Date Mary Alice Cage APRN PCP - General 10/12/11 11/12/18 documented as of this encounter
--- OUTSIDE RECORDS SUMMARY | 2024-07-24 00:55 | XMS_ITS | Encounter Summary ---
Author Organization [facility] [place] [address] Care Team Providers Care Manager Of Patient Name Role Phone Mary Alice Cage MANUELA Primary Care Provider [phone] Encounter Details Date Type Department Care Team (Latest Contact Info) Description 11/04/2012 11:38 AM EDT - 11/04/2012 5:20 PM EDT Hospital Encounter [place] [address] Abel Rhoades MD [facility] [place] [address] Discharge Disposition: Home Social History Tobacco Use [...] 101.3 F. The number for questions is [phone] before 5 PM weekdays and [phone] after 5 PM and weekends. Pain Medication: No driving for 8 hours after any dose of Percocet. You may use ibuprofen (motrin, advil) in addition if your pain is not totally controlled. Follow-up: A follow-up appointment will be scheduled with Dr. Rhoades in 4-6 weeks. The appointment will be mailed to you. Please call [phone] (clinic number for appointments) to confirm the [...] Rhoades MD - 11/04/2012 3:04 PM EDT [facility] Operative Note Patient Name: Poppy Pino : [id number] MR#: [id number] Case Date: 11/04/2012 Surgeon: Surgeon(s) and Role: [...] 10-mm port site was closed with interrupted [id number] 0-Vicryl suture followed by running subcuticular 4-0 [...] 2:55 PM EDT) Surgical Pathology Report ? [facility] ? Provider: ?? ABEL RHOADES ? Pt. Name: ?? POPPY PINO ? Acc #: ?[id number] ?Pt. ? Col Date: ?? 11/04/2012 ? [...] MD PATHOLOGY/CYTOLOGY O RODDY Performing Organization Address [facility] Co de Phone Number VIKTOR TODD * Specimen to Pathology (surgical or derm) (11/04/2012 2:45 PM EDT) AP Specimen 11/04/2012 2:45 PM EDT 11/04/2012 2:45 PM EDT Narrative VIKTOR PATELCINTHYAASHLEY - 11/04/2012 2:45 PM EDT Specimen requisition ordered. ??Separate Pathology report to follow Abel Rhoades MD PATHOLOGY/CYTOLOGY O RODDY Performing Organization Address [facility] Co de Phone Number VIKTOR TODD [...] Routine documented in this encounter Care Teams Manager Of Patient Relationship Specialty Start Date End Date Mary Alice Cage APRN PCP - General 10/12/11 11/12/18 documented as of this encounter
--- OUTSIDE RECORDS SUMMARY | 2024-07-24 00:55 | XMS_ITS | Encounter Summary ---
Author Organization [facility] [place] [address] Care Team Providers Care Knowledge Management Advisor Name Role Phone Mary Alice Cage MANUELA Primary Care Provider [phone] Encounter Details Date Type Department Care Team (Latest Contact Info) Description 12/09/2012 8:15 AM EDT [place] [address] Marshall Montgomery MD [facility] [place] [address] Cervical radiculopathy (Primary Dx) Discharge Disposition: Home [...] nos documented in this encounter Care Teams Knowledge Management Advisor Relationship Specialty Start Date End Date [place], Mary Alice G, MANAGER PUBLISHING PCP - General 10/12/11 11/12/18 documented as of this encounter
--- OUTSIDE RECORDS SUMMARY | 2024-07-24 00:55 | XMS_ITS | Encounter Summary ---
[place] [address] Care Team Providers Care Metalworker Name Role Phone Mary Alice Cage MANUELA Primary Care Provider [phone] Reason for Visit * Reason Comments Neck And Arm Pain right Encounter Details Date Type Department Care Team (Latest Contact Info) Description 12/18/2012 11:00 AM EDT Office [place] [address] Rios Acuna MD [facility] [place] [address] Herniated nucleus pulposus, C6-7 Right, with degenderative [...] light cigarettes, but she is still smoking bob-rob-z-half packs per day. I told the patient [...] myelopathy documented in this encounter Care Teams Metalworker Relationship Specialty Start Date End Date Mary Alice Cage APRN PCP - General 10/12/11 11/12/18 documented as of this encounter
--- OUTSIDE RECORDS SUMMARY | 2024-07-24 00:55 | XMS_ITS | Encounter Summary ---
Author Organization [facility] [place] [address] Care Team Providers Care Hide Mill Man Name Role Phone Mary Alice Cage MANUELA Primary Care Provider Encounter Details Date Type Department Care Team (Latest Contact Info) Description 07/11/2013 11:11 AM EST - 07/11/2013 11:59 PM [facility] Hospital En[place] [address] CLINIC, Rios Morris MD [facility] [place] [address] Herniated nucleus pulposus, C6-7 Right, with degenderative [...] myelopathy documented in this encounter Care Teams Hide Mill Man Relationship Specialty Start Date End Date Mary Alice Cage APRN PCP - General 10/12/11 11/12/18 documented as of this encounter
--- OUTSIDE RECORDS SUMMARY | 2024-07-24 00:55 | XMS_ITS | Encounter Summary ---
Author Organization [facility] [address] Care Team Providers Care Director Counseling Bureau Name Role Phone Mary Alice Cage APRN Primary Care Provider [phone] Reason for Visit * Reason Onset Date Comments Medication Refill 01/28/2013 Encounter Details Date Type Department Care Team (Late st Contact Info) Description 01/28/2013 Refill [place] [address] Malia Vidal ANIMAL GROOMER [facility] [place] [address] Social History Tobacco Use Types Packs/Day Years [...] filedocumented in this encounter Care Teams Director Counseling Bureau Relationship Specialty Start Date End Date Mary Alice Cage APRN PCP - General 10/12/11 11/12/18 documented as of this encounter
--- OUTSIDE RECORDS SUMMARY | 2024-07-24 00:55 | XMS_ITS | Encounter Summary ---
Author Organization [facility] [place] [address] Care Team Providers Care Sample Worker Name Role Phone Mary Alice Cage MANUELA Primary Care Provider [phone] Encounter Details Date Type Department Care Team (Latest Contact Info) Description 08/18/2013 10:11 AM [facility] - 08/18/2013 11:59 PM [facility] [place] [address] Rios Acuna MD [facility] [place] [address] Herniated nucleus pulposus, C6-7 Right, with degenderative [...] changes TYPE AND SCREEN, SDP (FUTURE SURGERY, [facility] SAME DAY PROGRAM ONLY) Routine 08/18/2013 10:20 [...] By: LISA RIOS Del Cid ? MR#: [id number] ?LOC: ??4V ? /Sex: ??1960 (52 years), [...] Narrative Resulting Agency Comment Spec In Lab Rois Acuna MD MICROBIOLOGY - GENER AL ORDERABLES [facility] * Urinalysis with microscopic (08/18/2013 10:47 AM [...] Urine Dipstick Clear Clear CERNER MILLENNIUM Specific [place] Urine Automated 1.007 1.002 - 1.030 CERNER [...] % 0.10 0.00 - 0.66 % [facility] MILLENNIUM Comment: Immature granulocytes(IG's)percentage and absolute count will include metamyelocytes, myelocytes, and promyelocytes. Blood smears from CBCs yielding IG's will be scanned manually for concordance. If this scan disagrees with the automated IG or if promyelocytes are noted, a manual differential will be performed. Immature Gran Absolute 0.01 0.00 - 0.05 x10(3)/mcL [facility] MILLENNIUM Blood specimen (specimen) 08/18/2013 10:20 AM EST 08/18/2013 10:30 AM EST Rios Acuna MD HEMATOLOGY ORDERABLE S Performing Organization Address [facility] Phone Number [facility] * Prothrombin Time (08/18/2013 10:20 AM EST) Prothrombin Time 12.2 12.0 - 15.0 sec [facility] Comment: [facility] Transfusion Committee Guidelines: INR less than 2.0, PTT less than OR equal to 43.5 seconds, or Fibrinogen greater than or equal to 100 mg/dl indicate adequate procoagulant activity for hemostasis in patients without underlying bleeding disorders. International Normalization Ratio 0.9 0.9 - 1.1 [facility] Blood specimen (specimen) 08/18/2013 10:20 AM EST 08/18/2013 10:30 AM EST Narrative Resulting Agency Comment Spec In Lab Rios Acuna MD HEMATOLOGY ORDERABLE S Performing Organization Address [facility] de Phone Number [facility] * Basic Metabolic Panel (non-fasting) (08/18/2013 10:20 AM EST) Glucose 110 60 - 199 mg/dL [facility] Comment:Diabetes: >=200 mg/d L plus symptoms Blood Urea Nitrogen 11 8 - 18 mg/dL [facility] Creatinine 0.94 0.70 - 1.20 mg/dL [facility] Comment: Please note that the pediatric reference intervals supplied above were not validated at [facility]. Results from pediatric patients should be interpreted [...] MD HEMATOLOGY ORDERABLE S Performing Organization Address [facility] Co de Phone Number VIKTOR PATELENNIUM * Antibody screen (08/18/2013 10:20 AM EST) Ab Screen Interp Negative CERJORGE PATELENNIUM Expires at 2359 on: [id number] [facility] PATELENNI[facility] Blood specimen (specimen) 08/18/2013 10:20 AM EST 08/18/2013 10:31 AM EST Narrative Resulting Agency Comment Spec In Lab Rios Acuna MD BLOOD BANK LAB ORDER DAMARIS Performing Organization Address [facility] Co de Phone Number VIKTOR SAHAIUM * ABO/Rh Typing (08/18/2013 10:20 AM EST) ABORH Type A Pos CERNER MILLENNIUM Blood specimen (specimen) 08/18/2013 10:20 AM EST 08/18/2013 10:31 AM EST Narrative Resulting Agency Comment Spec In Lab Rios Acuna MD BLOOD BANK LAB ORDER DAMARIS Performing Organization Address [facility] Co de Phone Number VIKTOR SAHAIUM documented in this encounter Visit Diagnoses Diagnosis Herniated nucleus pulposus, C6-7 Right, with degenderative changes Displacement of cervical intervertebral disc without myelopathy documented in this encounter Care Teams Sample Worker Relationship Specialty Start Date End Date Mary Alice Cage APRN PCP - General 10/12/11 11/12/18 documented as of this encounter
--- OUTSIDE RECORDS SUMMARY | 2024-07-24 00:55 | XMS_ITS | Encounter Summary ---
Author Organization [facility] Address [facility] [place] [address] Care Team Providers Care Caustic Room Operator Name Role Phone Mary Alice Cage MANUELA Primary Care Provider [phone] Encounter Details Date Type Department Care Team (Latest Contact Info) Description 10/23/2012 12:16 PM EDT - 10/23/2012 11:59 PM EDT [place] [address] CLINIC, DR MATEUSZ Holloway, Osmany Overton MD [facility] [place] [address] Dyspnea Discharge Disposition: Home Social History Tobacco [...] abnormality documented in this encounter Care Teams Caustic Room Operator Relationship Specialty Start Date End Date Mary Alice Cage APRN PCP - General 10/12/11 11/12/18 documented as of this encounter
--- OUTSIDE RECORDS SUMMARY | 2024-07-24 00:55 | XMS_ITS | Encounter Summary ---
Author Organization [facility] [place] [address] Care Team Providers Care Hospital Chief Financial Officer Name Role Phone Mary Alice Domingo APRN Primary Care Provider [phone] Reason for Visit * Reason Comments Other dyspepsia Encounter Details Date Type Department Care Team (Late st Contact Info) Description 10/23/2012 11:00 AM EDT Office [place] [address] Abel Carlton MD [facility] [place] [address] Biliary colic (Primary Dx) Discharge Disposition: Home [...] obstruction documented in this encounter Care Teams Hospital Chief Financial Officer Relationship Specialty Start Date End Date Mary Alice Domingo APRN PCP - General 10/12/11 11/12/18 documented as of this encounter
--- OUTSIDE RECORDS SUMMARY | 2024-07-24 00:55 | XMS_ITS | Encounter Summary ---
[place] [address] Care Team Providers Care Cuff Presser Name Role Phone BatesMary Alice davis Rajendra ROY Primary Care Provider [phone] Encounter Details Date Type Department Care Team (Late st Contact Info) Description 11/04/2012 1:38 PM EDT Anesthesia Event [place] [address] [facility] [place] [address] [facility] [place] [address] Anesthesia Record Procedure Summary Procedure Name Responsible [...] Patient states none loose. Extremely poot dentition [facility] Assessment: Anesthesia Plan: ASA 2 general, with a(n) intravenous induction 52yo F smoker for lap shruthi. Neg sleep study. pft reviewed and incomplete. Per allergy list: albuterol & egg. Informed Consent: Anesthetic plan and risks discussed with patient. Plan discussed with resident and attending. [facility]. Assessment: documented in this encounter Plan of [...] mg documented in this encounter Care Teams Cuff Presser Relationship Specialty Start Date End Date Mary Alice Cage APRN PCP - General 10/12/11 11/12/18 documented as of this encounter
--- OUTSIDE RECORDS SUMMARY | 2024-07-24 00:55 | XMS_ITS | Encounter Summary ---
Author Organization [facility] [address] Care Team Providers Care Police Patrol Officer Name Role Phone AthensMary Alice davis Rajendra ROY Primary Care Provider [phone] Reason for Visit * Reason Onset Date Comments Medication Refill 07/05/2013 Encounter Details Date Type Department Care Team (Late st Contact Info) Description 07/05/2013 Refill [place] [address] Letty Vidal APRN [facility] [place] [address] Social History Tobacco Use Types Packs/Day Years [...] per tablet [LETTY VIDAL, MANUELA] Preferred pharmacy: [facility] [address] [place] [address] Comment: documented in this encounter Plan of Treatment Not on file documented as of this encounter Visit Diagnoses Not on filedocumented in this encounter Care Teams Police Patrol Officer Relationship Specialty Start Date End Date Mary Alice Cage APRN PCP - General 10/12/11 11/12/18 documented as of this encounter
--- OUTSIDE RECORDS SUMMARY | 2024-07-24 00:55 | XMS_ITS | Encounter Summary ---
[place] [address] Care Team Providers Care Fuel Dock Attendant Name Role Phone Mary Alice Cage APRN Primary Care Provider [phone] Encounter Details Date Type Department Care Team (Late st Contact Info) Description 08/17/2013 External Results [place] [address] Provider, Scanning Social History Tobacco Use Types [...] filedocumented in this encounter Care Teams Fuel Dock Attendant Relationship Specialty Start Date End Date Mary Alice Cage APRN PCP - General 10/12/11 11/12/18 documented as of this encounter
--- OUTSIDE RECORDS SUMMARY | 2024-07-24 00:55 | XMS_ITS | Encounter Summary ---
[place] [address] Care Team Providers Care Loan Secretary Name Role Phone Mary Alice Cage MANUELA Primary Care Provider [phone] Reason for Visit * Reason Comments Arm Pain RIGHT side Back Pain Right Shoulder Pain Encounter Details Date Type Department Care Team (Latest Contact Info) Description 07/07/2013 8:20 AM EST Office [place] [address] Rios Acuna MD [facility] [place] [address] Herniated nucleus pulposus, C6-7 Right, with degenderative [...] myelopathy documented in this encounter Care Teams Loan Secretary Relationship Specialty Start Date End Date Mary Alice Cage APRN PCP - General 10/12/11 11/12/18 documented as of this encounter
--- OUTSIDE RECORDS SUMMARY | 2024-07-24 00:55 | XMS_ITS | Encounter Summary ---
[place] [address] Care Team Providers Care Wood Cut Engraver Name Role Phone Mary Alice Cage APRN Primary Care Provider [phone] Reason for Visit * Reason Onset Date Comments Pre Procedure Call 08/21/2013 D/C NSAID's, ASA, and Fish oil Encounter Details Date Type Department Care Team (Late st Contact Info) Description 08/21/2013 Telephone [place] [address] Colleen Wright LPN Pre Procedure [...] filedocumented in this encounter Care Teams Wood Cut Engraver Relationship Specialty Start Date End Date Mary Alice Cage APRN PCP - General 10/12/11 11/12/18 documented as of this encounter
--- OUTSIDE RECORDS SUMMARY | 2024-07-24 00:55 | XMS_ITS | Encounter Summary ---
Author Organization [facility] [place] [address] Care Team Providers Care Bouffant Curtain Machine Tender Name Role Phone [place] dav[place] MANUELA Primary Care Provider [phone] Encounter Details Date Type Department Care Team (Late st Contact Info) Description 11/27/2012 Orders [place] [address] Catrachita Cervantes MD [facility] [place] [address] Social History Tobacco Use Types Packs/Day Years [...] AM EDT) 11/27/2012 7:[address] [facility] - 04/01/2014 6:09 PM EDT This is a non-reportable exam. Procedure Note Sachin Alvarez - 04/01/2014 This is a non-reportable exam. Catrachita Cervantes MD [facility] FILM LIBRARY ORD ERABLES [facility] [address] [place] [address] documented in this encounter Visit Diagnoses Not on filedocumented in this encounter Care Teams Bouffant Curtain Machine Tender Relationship Specialty Start Date End Date Mary Alice Cage APRN PCP - General 10/12/11 11/12/18 documented as of this encounter
--- OUTSIDE RECORDS SUMMARY | 2024-07-24 00:55 | XMS_ITS | Encounter Summary ---
Author Organization [facility] [address] Care Team Providers Care Classroom Monitor Name Role Phone Mary Alice Cage APRN Primary Care Provider [phone] Encounter Details Date Type Department Care Team (Late st Contact Info) Description 12/10/2012 External [place] [address] Marshall Montgomery MD [facility] [place] [address] Social History Tobacco Use Types Packs/Day Years [...] on filedocumented in this encounter Care Teams Classroom Monitor Relationship Specialty Start Date End Date Mary Alice Cage APRN PCP - General 10/12/11 11/12/18 documented as of this encounter
--- OUTSIDE RECORDS SUMMARY | 2024-07-24 00:55 | XMS_ITS | Encounter Summary ---
Author Organization [place] [id number] Care Team Providers Care Route Manager Name Role Phone [place] Mary Alicepham Drew APRN Primary Care Provider [phone] Reason for Referral * Surgical (Urgent) - Closed Specialty Diagnoses / Procedures Referred By Chava t Referred To Contact Orthopaedics Diagnoses Dyspnea Osmany Holloway MD [facility] [place] [address] [facility] [address] [place] [phone] Referral ID Status Reason Start Date Expiration Date V isits Requested Visits Authorized [id number] Closed Consult, Test & Treat 10/27/2012 04/25/2013 1 1 Encounter Details Date Type Department Care Team (Late st Contact Info) Description 10/27/2012 Orders [place] [address] Osmany Holloway MD [facility] [place] [address] Dyspnea (Primary Dx) Social History [...] abnormality documented in this encounter Care Teams Route Manager Relationship Specialty Start Date End Date Mary Aliec Cage APRN PCP - General 10/12/11 11/12/18 documented as of this encounter
--- OUTSIDE RECORDS SUMMARY | 2024-07-24 00:55 | XMS_ITS | Encounter Summary ---
[place] [address] Care Team Providers Care Programmer Numerical Control Name Role Phone [place] Mary Alicepham Drew APRN Primary Care Provider Reason for Referral * Consultation (Routine) - Closed Specialty Diagnoses / Procedures Referred By Chava alejo Referred To Contact Pain Management Diagnoses Herniated nucleus pulposus, C6-7 Satya Alfaro MD [facility] [place] [address] [facility] [address] [place] [address] Referral ID Status Reason Start Date Expiration Date V isits Requested Visits Authorized [id number] Closed Consult, Test & Treat 11/03/2012 05/02/2013 1 1 Reason for Visit * Reason Comments Back Pain Bilateral Hip Pain Neck Pain Encounter Details Date Type Department Care Team (Latest Contact Info) Description 11/03/2012 9:55 AM EDT Office [place] [address] Rios Acuna MD [facility] [place] [address] Herniated nucleus pulposus, C6-7 Right, with degenderative [...] 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 She is [...] myelopathy documented in this encounter Care Teams Programmer Numerical Control Relationship Specialty Start Date End Date Mary Alice Cage APRN PCP - General 10/12/11 11/12/18 documented as of this encounter
--- OUTSIDE RECORDS SUMMARY | 2024-07-24 00:55 | XMS_ITS | Encounter Summary ---
Author Organization [facility] [place] [address] Care Team Providers Care Tree Puller Name Role Phone RogersMary Alice davis MANUELA Primary Care Provider [phone] Reason for Visit * Reason Comments Follow-up S/P LAP NOAH Encounter Details Date Type Department Care Team (Late st Contact Info) Description 12/04/2012 1:30 PM EDT Office [place] [address] Jillian Wiley APRN [facility] [place] [address] Surgery follow-up (Primary Dx) Discharge Disposition: Home [...] surgery documented in this encounter Care Teams Tree Puller Relationship Specialty Start Date End Date Mary Alice Cage APRN PCP - General 10/12/11 11/12/18 documented as of this encounter
--- OUTSIDE RECORDS SUMMARY | 2024-07-24 00:55 | XMS_ITS | Encounter Summary ---
[place] [address] Care Team Providers Care Operational Intelligence Officer Name Role Phone Mary Alice Cage APRN Primary Care Provider Encounter Details Date Type Department Care Team (Late st Contact Info) Description 07/08/2013 Telephone [place] [address] Surendra Amezcua Social History Tobacco Use Types [...] on filedocumented in this encounter Care Teams Operational Intelligence Officer Relationship Specialty Start Date End Date Mary Alice Cage APRN PCP - General 10/12/11 11/12/18 documented as of this encounter
--- OUTSIDE RECORDS SUMMARY | 2024-07-24 00:55 | XMS_ITS | Encounter Summary ---
Author Organization [facility] Address [facility] [place] [address] Care Team Providers Care Mechanical Technician Name Role Phone Mary Alice Cage APRN Primary Care Provider [phone] Encounter Details Date Type Department Care Team (Latest Contact Info) Description 07/07/2013 9:18 AM EST - 07/07/2013 11:59 PM [facility] Hospital Encounter XRay at [address] [place] [address] Herniated nucleus pulposus, C6-7 Right, with degenderative [...] myelopathy documented in this encounter Care Teams Mechanical Technician Relationship Specialty Start Date End Date Mary Alice Cage APRN PCP - General 10/12/11 11/12/18 documented as of this encounter
--- OUTSIDE RECORDS SUMMARY | 2024-07-24 00:55 | XMS_ITS | Encounter Summary ---
[place] [address] Care Team Providers Care Collar Worker Name Role Phone Mary Alice Cage MANUELA Primary Care Provider [phone] Reason for Visit * Reason Comments Back Pain Right Arm Pain Encounter Details Date Type Department Care Team (Latest Contact Info) Description 07/13/2013 9:40 AM EST Office [place] [address] Rios Gonzalez MD [facility] [place] [address] Herniated nucleus pulposus, C6-7 Right, with degenderative [...] combined with uncovertebral hypertrophy to cause bilateral ykrjbooo-kb-exlgob foraminal narrowing. At C6-C7, the large disk [...] Urine Dipstick Clear Clear CERNER MILLENNIUM Specific Surprise Urine Automated 1.007 1.002 - 1.030 CERNER [...] ? Ordered By: RIOS GONZALEZ ? MR#: [id number] ?LOC: ??4V ? /Sex: ??1960 (52 years), [...] Gonzalez MD MICROBIOLOGY - GENER AL ORDERABLES [facility] * Prothrombin Time (08/18/2013 10:20 AM EST) Prothrombin Time 12.2 12.0 - 15.0 sec [facility] Comment: [facility] Transfusion Committee Guidelines: INR less [...] Lab Rios Gonzalez MD HEMATOLOGY ORDERABLE S [facility] * Basic Metabolic Panel (non-fasting) (08/18/2013 10:20 AM EST) Glucose 110 60 - 199 mg/dL CERNER MILLENNIUM Comment:Diabetes: >=200 mg/d L plus symptoms Blood Urea Nitrogen 11 8 - 18 mg/dL CERNER MILLENNIUM Creatinine 0.94 0.70 - 1.20 mg/dL CERNER MILLENNIUM Comment: Please note that the pediatric reference intervals supplied above were not validated at [facility]. Results from pediatric patients should be interpreted [...] Gonzalez MD CHEMISTRY ORDERABLES Performing Organization Address [facility] Co de Phone Number VIKTOR TODD [...] MD HEMATOLOGY ORDERABLE S Performing Organization Address [facility] Co de Phone Number VIKTOR TODD documented in this encounter Visit Diagnoses Diagnosis Herniated nucleus pulposus, C6-7 Right, with degenderative changes- Primary Displacement of cervical intervertebral disc without myelopathy Herniated nucleus pulposus, C6-7 Right, with degenderative changes Displacement of cervical intervertebral disc without myelopathy documented in this encounter Care Teams Collar Worker Relationship Specialty Start Date End Date Mary Alice Cage APRN PCP - General 10/12/11 11/12/18 documented as of this encounter
--- OUTSIDE RECORDS SUMMARY | 2024-07-24 00:55 | XMS_ITS | Encounter Summary ---
Author Organization [facility] [place] [address] Care Team Providers Care Commuter Train Operator Name Role Phone EssexMary Alice davis Rajendra ROY Primary Care Provider [phone] Reason for Visit * Reason Comments Symptom, Headache Cervicalgia Encounter Details Date Type Department Care Team (Latest Contact Info) Description 11/27/2012 7:00 AM EDT Procedure [place] [address] Hiro Cervantes MD [address] [place] [address] Hiro Cervantes MD [facility] [place] [address] Cervicalgia (Primary Dx) Discharge Disposition: Home Social [...] 2. 3. Patient states they have a port cdl a driver to transport after procedure? Yes 4. [...] PRN. Dominic Albarado MD Pain Medicine Fellow, [facility] I was the attending physician supervising the [...] PRN. Dominic Albarado MD Pain Medicine Fellow, [facility] I was the attending physician supervising the [...] PRN. Dominic Albarado MD Pain Medicine Fellow, [facility] I was the attending physician supervising the resident in the above careand I was present with the resident for the entire procedure. HIRO SCOTT MD Hiro Cervantes MD NEUROLOGY ORDERABLES documented in this encounter Visit Diagnoses Diagnosis Cervicalgia- Primary documented in this encounter Care Teams Commuter Train Operator Relationship Specialty Start Date End Date Mary Alice Cage APRN PCP - General 10/12/11 11/12/18 documented as of this encounter
--- OUTSIDE RECORDS SUMMARY | 2024-07-24 00:55 | XMS_ITS | Encounter Summary ---
Author Organization [facility] [place] [place] [address] Care Team Providers Care Rewriter Name Role Phone Mary Alice Cage APRN Primary Care Provider Reason for Visit * Reason Onset Date Comments Medication Refill 12/05/2012 Encounter Details Date Type Department Care Team (Late st Contact Info) Description 12/05/2012 Refill [place] [address] Malia Vidal LAND CHECKER [facility] [place] [address] Social History Tobacco Use Types Packs/Day Years [...] on filedocumented in this encounter Care Teams Rewriter Relationship Specialty Start Date End Date Mary Alice Cage APRN PCP - General 10/12/11 11/12/18 documented as of this encounter
--- OUTSIDE RECORDS SUMMARY | 2024-07-24 00:55 | XMS_ITS | Encounter Summary ---
Author Organization [facility] [place] [address] Care Team Providers Care Director Of Clinical Education Name Role Phone NilesMary Alice Rajendra ROY Primary Care Provider [phone] Encounter Details Date Type Department Care Team (Late st Contact Info) Description 10/23/2012 External Results XRay at [address] [place] [address] Malia Vidal APRN [facility] [place]STROENTER[place] [address] Social History Tobacco Use Types Packs/Day Years [...] in this encounter Care Teams Director Of Clinical Education Relationship Specialty Start Date End Date Mary Alice Cage APRN PCP - General 10/12/11 11/12/18 documented as of this encounter
--- OUTSIDE RECORDS SUMMARY | 2024-07-24 00:55 | XMS_ITS | Encounter Summary ---
[place] [address] Care Team Providers Care Mold Yard Worker Name Role Phone Mary Alice Cage APRN Primary Care Provider [phone] Encounter Details Date Type Department Care Team (Late st Contact Info) Description 10/31/2012 Abstract [place] [address] Renu Jacobsen, PHOTOGRAPHY TEACHER Social History Tobacco Use Types Packs/Day Years [...] filedocumented in this encounter Care Teams Mold Yard Worker Relationship Specialty Start Date End Date Mary Alice Cage APRN PCP - General 10/12/11 11/12/18 documented as of this encounter
--- OUTSIDE RECORDS SUMMARY | 2024-07-24 00:55 | XMS_ITS | Encounter Summary ---
[place] [address] Care Team Providers Care In Store Marketing Representative Name Role Phone LynnMary Alice davis Rajendra ROY Primary Care Provider [phone] Encounter Details Date Type Department Care Team (Late st Contact Info) Description 08/18/2013 10:00 AM EST Clinical [place] [address] Social History Tobacco Use Types Packs/Day Years [...] on filedocumented in this encounter Care Teams In Store Marketing Representative Relationship Specialty Start Date End Date Mary Alice Cage APRN PCP - General 10/12/11 11/12/18 documented as of this encounter
--- OUTSIDE RECORDS SUMMARY | 2024-07-24 00:56 | XMS_ITS | Encounter Summary ---
Author Organization [facility] [place] [address] Care Team Providers Care Transport Company Manager Name Role Phone [place]att[place]augusMary Alice davis Rajendra ROY Primary Care Provider [phone] Reason for Referral * Consultation (Routine) - Closed Specialty Diagnoses / Procedures Referred By Chava alejo Referred To Contact Gastroenterology Diagnoses Dyspepsia Malia Vidal ATTENDANT [facility] [place] [address] [facility] [place] [address] Referral ID Status Reason Start Date Expiration Date V isits Requested Visits Authorized [id number] Closed Consult, Test & Treat 08/24/2012 02/20/2013 1 1 Encounter Details Date Type Department Care Team (Late st Contact Info) Description 08/24/2012 Orders Only [place] [address] Malia Vidal [facility] [place] [address] Dyspepsia (Primary Dx) Social History [...] stomach documented in this encounter Care Teams Transport Company Manager Relationship Specialty Start Date End Date Mary Alice Cage APRN PCP - General 10/12/11 11/12/18 documented as of this encounter
--- OUTSIDE RECORDS SUMMARY | 2024-07-24 00:56 | XMS_ITS | Encounter Summary ---
Author Organization [facility] [address] Care Team Providers Care Dining Chair Seat Cushion Trimmer Name Role Phone Mary Alice Cage APRN Primary Care Provider Encounter Details Date Type Department Care Team (Late st Contact Info) Description 03/05/2012 Orders [place] [address] Malia Vidal APRN [facility] [place] [address] GI disease (Primary Dx) Social History Tobacco [...] intestine documented in this encounter Care Teams Dining Chair Seat Cushion Trimmer Relationship Specialty Start Date End Date Mary Alice Cage APRN PCP - General 10/12/11 11/12/18 documented as of this encounter
--- OUTSIDE RECORDS SUMMARY | 2024-07-24 00:56 | XMS_ITS | Encounter Summary ---
Author Organization [facility] [place] [address] Care Team Providers Care Machine Hoop Maker Name Role Phone ChittendenMary Alice davis MANUELA Primary Care Provider [phone] Encounter Details Date Type Department Care Team (Late st Contact Info) Description 12/27/2011 7:00 AM EDT Follow-Up [place] [address] Malia Vidal APRN [facility] [place] [address] Abdominal pain, other specified site; GERD (gastroesophageal [...] scan normal. Pt had abdominal u/s at [facility], normal. Pt had ttg, at [facility], will need to obtain. Per pt test was negative. Upper endoscopy: [facility], overall normal Abdominal/pelvic CT: [facility], normal Colonoscopy: [facility], normal Pt reports frequent belching, regurgitation. [...] reflux documented in this encounter Care Teams Machine Hoop Maker Relationship Specialty Start Date End Date Mary Alice Cage APRN PCP - General 10/12/11 11/12/18 documented as of this encounter
--- OUTSIDE RECORDS SUMMARY | 2024-07-24 00:56 | XMS_ITS | Encounter Summary ---
[place] [address] Care Team Providers Care Aircraft Landing Gear Inspector Name Role Phone Mary Alice Cage APRN Primary Care Provider [phone] Reason for Visit * Reason Onset Date Comments Other 05/05/2012 Encounter Details Date Type Department Care Team (Late st Contact Info) Description 05/05/2012 Telephone [place] [address] Bhavani Knowles RN Other Social History Tobacco [...] mail message with GI clinic phone number: [phone]. documented in this encounter Plan of Treatment Not on file documented as of this encounter Visit Diagnoses Not on filedocumented in this encounter Care Teams Aircraft Landing Gear Inspector Relationship Specialty Start Date End Date Mary Alice Cage APRN PCP - General 10/12/11 11/12/18 documented as of this encounter
--- OUTSIDE RECORDS SUMMARY | 2024-07-24 00:56 | XMS_ITS | Encounter Summary ---
Author Organization [facility] [address] Care Team Providers Care Fire Warden Name Role Phone Mary Alice Cage MANUELA Primary Care Provider [phone] Encounter Details Date Type Department Care Team (Late st Contact Info) Description 08/19/2012 Orders Only [place] [address] Deep Helms MD [facility] DR CRITICAL [place] [address] Calcified granuloma of lung (Primary Dx) Social [...] parenchymal disease (i.e. emphysema, ILD), and anemia. Advertising Operations Manager notes during the spirometric procedure state that [...] pulmonaryparenchymal disease (i.e. emphysema, ILD), and anemia. Advertising Operations Manager notes during the spirometric procedure state that [...] fibrosis documented in this encounter Care Teams Fire Warden Relationship Specialty Start Date End Date Mary Alice Cage APRN PCP - General 10/12/11 11/12/18 documented as of this encounter
--- OUTSIDE RECORDS SUMMARY | 2024-07-24 00:56 | XMS_ITS | Encounter Summary ---
[place] [address] Care Team Providers Care Report Developer Name Role Phone Mary Alice Cage MANUELA Primary Care Provider [phone] Reason for Visit * Reason Onset Date Comments Other 03/05/2012 CT ordered in er ror - dept has removed Encounter Details Date Type Department Care Team (Late st Contact Info) Description 03/05/2012 Telephone [place] [address] Ashanti Talley, KAMLA Other (CT ordered in [...] I entered an order for Malia Dee CYBER WORKFORCE DEVELOPER AND MANAGER: a CT on this pt today. Wrong patient. It is in error and the CT dept was called to remove it. The order may remain but really was not scheduled. documented in this encounter Plan of Treatment Not on file documented as of this encounter Visit Diagnoses Not on filedocumented in this encounter Care Teams Report Developer Relationship Specialty Start Date End Date Mary Alice Cage APRN PCP - General 10/12/11 11/12/18 documented as of this encounter
--- OUTSIDE RECORDS SUMMARY | 2024-07-24 00:56 | XMS_ITS | Encounter Summary ---
Author Organization [facility] Address [facility] [place] [address] Care Team Providers Care Experimental Technician Name Role Phone Mary Alice Cage MANUELA Primary Care Provider [phone] Encounter Details Date Type Department Care Team (Latest Contact Info) Description 05/26/2012 1:45 PM EDT - 05/26/2012 11:59 PM EDT Hospital Encounter XRay at [address] [place] [address] CLINIC, Justin Babin MD [facility] [place] [address] Bloat Discharge Disposition: Home Social History Tobacco [...] MD HEMATOLOGY ORDERABLE S Performing Organization Address [place] Co de Phone Number [facility] * Tissue transglutaminase, IgA (05/26/2012 2:01 PM EDT) TTG IgA Ab <4.0 <=3.9 u/ml [facility] Comment: Result Interpretation: Negative: ?<4 U/mL Weak Positive: ??4-10 U/mL Positive: ?>10 U/mL Blood specimen (specimen) 05/26/2012 2:01 PM EDT 05/27/2012 8:16 AM EDT Narrative Resulting Agency Comment Spec In Lab Justin Starkey MD IMMUNOLOGY ORDERABLE S Performing Organization Address [place] Co de Phone Number [facility] * TSH (05/26/2012 2:01 PM EDT) Thyroid Stimulating Hormone 0.87 0.27 - 4.20 mcIU/mL [facility] Blood specimen (specimen) 05/26/2012 2:01 PM EDT 05/26/2012 2:08 PM EDT Narrative Resulting Agency Comment Spec In Lab Justin Starkey MD CHEMISTRY ORDERABLES CERNER AMANDAENNIUM * Comprehensive metabolic panel (non-fasting) (05/26/2012 2:01 PM EDT) [facility] Glucose 99 60 - 199 mg/dL CERNER MILLENNIUM Comment:Diabetes: >=200 mg/d L plus symptoms Blood Urea Nitrogen 12 8 - 18 mg/dL CERNER MILLENNIUM Creatinine 0.82 0.70 - 1.20 mg/dL CERNER MILLENNIUM Comment: Please note that the pediatric reference intervals supplied above were not validated at [facility]. Results from pediatric patients should be interpreted [...] Lab Justin Starkey MD CHEMISTRY ORDERABLES [facility] * (ABNORMAL) CBC (with Diff) (05/26/2012 [...] pain documented in this encounter Care Teams Experimental Technician Relationship Specialty Start Date End Date Mary Alice Cage APRN PCP - General 10/12/11 11/12/18 documented as of this encounter
--- OUTSIDE RECORDS SUMMARY | 2024-07-24 00:56 | XMS_ITS | Encounter Summary ---
Author Organization [facility] [place] [address] Care Team Providers Care Scale Reclamation Tender Name Role Phone Mary Alice Cage APRN Primary Care Provider [phone] Reason for Visit * Reason Comments Sinusitis Encounter Details Date Type Department Care Team (Late st Contact Info) Description 08/28/2012 10:45 AM EST Office [place] [address] Samra Goodson APRN [facility] [place] [address] Rhinitis (Primary Dx) Discharge Disposition: Home Social [...] Visit: 08/28/2012 Location of Visit: Otolaryngology Clinic, [facility] Patient: Poppy Pickeringthor ([id number] ; 1960 Primary Care Provider: Mary Alice [...] Egg Social History: Poppy Mclaughlin [place] [address],with her . She does smoke 1 1/2 [...] recheck or sooner if needed. Samra WORKMAN [place], [place] [address] Office documented in this encounter Plan of Treatment Not on file documented as of this encounter Visit Diagnoses Diagnosis Rhinitis- Primary Chronic rhinitis documented in this encounter Care Teams Scale Reclamation Tender Relationship Specialty Start Date End Date Mary Alice Cage APRN PCP - General 10/12/11 11/12/18 documented as of this encounter
--- OUTSIDE RECORDS SUMMARY | 2024-07-24 00:56 | XMS_ITS | Encounter Summary ---
Author Organization [facility] [address] Care Team Providers Care Systems Integrator Name Role Phone Mary Alice Cage APRN Primary Care Provider [phone] Reason for Visit * Reason Onset Date Comments Medication Refill 12/24/2011 Encounter Details Date Type Department Care Team (Late st Contact Info) Description 12/24/2011 Refill [place] [address] Malia Vidal AIR HOSE COUPLER [facility] [place] [address] Social History Tobacco Use Types Packs/Day Years [...] filedocumented in this encounter Care Teams Systems Integrator Relationship Specialty Start Date End Date Mary Alice Cage APRN PCP - General 10/12/11 11/12/18 documented as of this encounter
--- OUTSIDE RECORDS SUMMARY | 2024-07-24 00:56 | XMS_ITS | Encounter Summary ---
[place] [address] Care Team Providers Care Printing Manager Name Role Phone ComalMary Alice davis MANUELA Primary Care Provider [phone] Reason for Visit * Reason Onset Date Comments Results 02/25/2012 ultrasound, mano metry Encounter Details Date Type Department Care Team (Late st Contact Info) Description 02/25/2012 Telephone [place] [address] Bhavani Knowles RN Results (ultrasound, manometry) Social [...] on filedocumented in this encounter Care Teams Printing Manager Relationship Specialty Start Date End Date Mary Alice Cage APRN PCP - General 10/12/11 11/12/18 documented as of this encounter
--- OUTSIDE RECORDS SUMMARY | 2024-07-24 00:56 | XMS_ITS | Encounter Summary ---
Author Organization [facility] [place] [address] Care Team Providers Care It Infrastructure Manager Name Role Phone MorrisMary Alice davis Rajendra ROY Primary Care Provider [phone] Reason for Visit * Reason Comments Referral Encounter Details Date Type Department Care Team (Late st Contact Info) Description 08/28/2012 9:00 AM EST Office [place] [address] Osmany Holloway MD [facility] [place] [address] Multiple nodules of lung (Primary Dx) Discharge [...] has lived most of her life in [place] though she did visit [place] when she was a child, though she [...] working at present. She grew up in [place], and has never lived outside of [place] other than the visit to [place] as indicated. She denies alcohol. She has [...] she was a child when she visited [place], may the nodules are not calcified, and [...] normal. Andriy Valdez MD Pulmonary Medicine Osmany Overotn MD PROCEDURE/MINOR DONA GICAL ORDERABLES * Amylase (08/28/2012 12:20 PM EST) Amylase 70 28 - 100 unit/L [facility] Blood specimen (specimen) 08/28/2012 12:20 PM EST 08/28/2012 12:30 PM EST Narrative Resulting Agency Comment Spec In Lab Osmany Overton MD CHEMISTRY ORDERABLE S Performing Organization Address [facility] Co de Phone Number [facility] * Sedimentation rate (08/28/2012 12:20 PM EST) Sedimentation Rate Automated 16 0 - 20 mm/hr [facility] Blood specimen (specimen) 08/28/2012 12:20 PM EST 08/28/2012 12:30 PM EST Narrative Resulting Agency Comment Spec In Lab Osmany Overton MD HEMATOLOGY ORDERABL ES Performing Organization Address [facility] Phone Number [facility] * Angiotensin Converting Enzyme (08/28/2012 12:20 PM EST) Yayo (DECEMBER) 31 8 - 53 unit/L [facility] Comment: Test Performed by: [place] [employer] [address] Crusher Plant Operator: Keena Vogel, Ph.D. Blood specimen (specimen) 08/28/2012 12:20 PM EST 08/28/2012 1:30 PM EST Narrative Resulting Agency Comment Spec In Lab Osmany Overton MD LAB SEND OUT ORDERA BLES Performing Organization Address [facility] Co de Phone Number [facility] documented in this encounter Visit Diagnoses Diagnosis Multiple nodules of lung- Primary Other nonspecific abnormal finding of lung field Multiple nodules of lung- Primary Other nonspecific abnormal finding of lung field documented in this encounter Care Teams It Infrastructure Manager Relationship Specialty Start Date End Date Mary Alice Cage APRN PCP - General 10/12/11 11/12/18 documented as of this encounter
--- OUTSIDE RECORDS SUMMARY | 2024-07-24 00:56 | XMS_ITS | Encounter Summary ---
Author Organization [facility] [place] [address] Care Team Providers Care Power Project Manager Name Role Phone DecaturMary Alice davis MANUELA Primary Care Provider [phone] Reason for Visit * Reason Comments Follow-up Encounter Details Date Type Department Care Team (Late st Contact Info) Description 05/26/2012 1:00 PM EDT Follow-Up [place] [address] Malia Vidal STAFF WRITER [facility] DR [place]STRO[place] [address] Bloat (Primary Dx) Discharge Disposition: Home Social [...] documented in this encounter Progress Notes * Maila Vidal RN - 05/26/2012 2:34 PM EDT [...] EDT) TTG IgA Ab <4.0 <=3.9 u/ml [facility] Comment: Result Interpretation: Negative: ?<4 U/mL Weak Positive: ??4-10 U/mL Positive: ?>10 U/mL Blood specimen (specimen) 05/26/2012 2:01 PM EDT 05/27/2012 8:16 AM EDT Narrative Resulting Agency Comment Spec In Lab Justin Starkey MD IMMUNOLOGY ORDERABLE S [facility] * TSH (05/26/2012 2:01 PM EDT) [...] intervals supplied above were not validated at [facility]. Results from pediatric patients should be interpreted [...] Starkey MD CHEMISTRY ORDERABLES Performing Organization Address City/[facility]/ZIP Co de Phone Number VIKTOR SAHAIUM * [...] MD HEMATOLOGY ORDERABLE S Performing Organization Address [place]/[facility] Co de Phone Number VIKTOR TODD [...] pain documented in this encounter Care Teams Power Project Manager Relationship Specialty Start Date End Date Mary Alice Cage APRN PCP - General 10/12/11 11/12/18 documented as of this encounter
--- OUTSIDE RECORDS SUMMARY | 2024-07-24 00:56 | XMS_ITS | Encounter Summary ---
[place] [address] Care Team Providers Care Credit Operations Specialist Name Role Phone Jeff DavisMary Alice davis Rajendra ROY Primary Care Provider [phone] Reason for Visit * Reason Onset Date Comments Prior Authorization 05/28/2012 Dexilant Encounter Details Date Type Department Care Team (Late st Contact Info) Description 05/28/2012 [place] [address] Debbie Skinner parole agent (Dexilant) Social History Tobacco Use Types Packs/Day [...] by mouth BID Insurance & Phone #: [employer]) [phone] ID #: [id number] Trialed (dosage, frequency): Prilosec, Aciphex Notes: No PA needed. Informed pharmacy documented in this encounter Plan of Treatment Not on file documented as of this encounter Visit Diagnoses Not on filedocumented in this encounter Care Teams Credit Operations Specialist Relationship Specialty Start Date End Date Mary Alice Cage APRN PCP - General 10/12/11 11/12/18 documented as of this encounter
--- OUTSIDE RECORDS SUMMARY | 2024-07-24 00:56 | XMS_ITS | Encounter Summary ---
[place] [address] Care Team Providers Care Refinery Operator Name Role Phone Mary Alice Cage APRN Primary Care Provider [phone] Reason for Visit * Reason Onset Date Comments Other 03/05/2012 begin bentyl,ph testing Encounter Details Date Type Department Care Team (Late st Contact Info) Description 03/05/2012 Telephone [place] [address] Ashanti Talley RN Other (begin [...] EDT Called pt back per Sepideh Guthrie'damir JOINER HELPER: Nutcracker probably cause of discomfort and. will [...] on filedocumented in this encounter Care Teams Refinery Operator Relationship Specialty Start Date End Date Mary Alice Cage APRN PCP - General 10/12/11 11/12/18 documented as of this encounter
--- OUTSIDE RECORDS SUMMARY | 2024-07-24 00:56 | XMS_ITS | Encounter Summary ---
[place] [address] Care Team Providers Care Applier Name Role Phone Mary Alice Cage APRN Primary Care Provider [phone] Reason for Visit * Reason Onset Date Comments Other 02/05/2012 headaches Encounter Details Date Type Department Care Team (Late st Contact Info) Description 02/05/2012 Tele[place] [address] Bhavani Knowles RN Other (headaches) Social History [...] Malia Vidal APRN. GI clinic phone number: [phone] given. documented in this encounter Plan of Treatment Not on file documented as of this encounter Visit Diagnoses Not on filedocumented in this encounter Care Teams Applier Relationship Specialty Start Date End Date Mary Alice Cage APRN PCP - General 10/12/11 11/12/18 documented as of this encounter
--- OUTSIDE RECORDS SUMMARY | 2024-07-24 00:56 | XMS_ITS | Encounter Summary ---
[place] [address] Care Team Providers Care Robotics Application Engineer Name Role Phone Mary Alice Cage APRN Primary Care Provider [phone] Reason for Visit * Reason Onset Date Comments Medication Refill 07/10/2012 Encounter Details Date Type Department Care Team (Late st Contact Info) Description 07/10/2012 Refill [place] [address] Ashanti Talley RN Social History Tobacco Use [...] on filedocumented in this encounter Care Teams Robotics Application Engineer Relationship Specialty Start Date End Date Mary Alice Cage APRN PCP - General 10/12/11 11/12/18 documented as of this encounter
--- OUTSIDE RECORDS SUMMARY | 2024-07-24 00:56 | XMS_ITS | Encounter Summary ---
[facility] [place] [address] Care Team Providers Care Television Audio Engineer Name Role Phone Mary Alice Cage APRN Primary Care Provider Encounter Details Date Type Department Care Team (Late st Contact Info) Description 03/12/2012 Orders Only [place] [address] Malia Vidal APRN [facility] [address] [place] [address] Social History Tobacco Use Types Packs/Day Years [...] on filedocumented in this encounter Care Teams Television Audio Engineer Relationship Specialty Start Date End Date Mary Alice Cage APRN PCP - General 10/12/11 11/12/18 documented as of this encounter
--- OUTSIDE RECORDS SUMMARY | 2024-07-24 00:56 | XMS_ITS | Encounter Summary ---
[place] [address] Care Team Providers Care Insurance Salesman Name Role Phone RefugioMary Alice davis MANUELA Primary Care Provider [phone] Reason for Visit * Reason Onset Date Comments Other 12/27/2011 wedge pillow Encounter Details Date Type Department Care Team (Late st Contact Info) Description 12/27/2011 Telephone [place] [address] Bhavani Knowles RN Other (wedge pillow) Social [...] RN - 12/27/2011 9:48 AM EDT Called [employer] at [phone] to order a wedge pillow for the patient. [employer] financial sales representative states the pillow will not be [...] are available and GI clinic phone number: [phone]. documented in this encounter Plan of Treatment Not on file documented as of this encounter Visit Diagnoses Not on filedocumented in this encounter Care Teams Insurance Salesman Relationship Specialty Start Date End Date Mary Alice Cage APRN PCP - General 10/12/11 11/12/18 documented as of this encounter
--- OUTSIDE RECORDS SUMMARY | 2024-07-24 00:56 | XMS_ITS | Encounter Summary ---
Author Organization [facility] [place] [address] Care Team Providers Care Photo Print Specialist Name Role Phone Mary Alice Cage APRN Primary Care Provider [phone] Reason for Visit * Reason Onset Date Comments Other 07/10/2012 pt calls Encounter Details Date Type Department Care Team (Late st Contact Info) Description 07/10/2012 Telephone [place] [address] Malia Vidal STOCK WORKER AND DELIVERER [facility] DR [place] [address] Other (pt calls) Social History Tobacco Use [...] on filedocumented in this encounter Care Teams Photo Print Specialist Relationship Specialty Start Date End Date Mary Alice Cage APRN PCP - General 10/12/11 11/12/18 documented as of this encounter
--- OUTSIDE RECORDS SUMMARY | 2024-07-24 00:56 | XMS_ITS | Encounter Summary ---
[facility] [address] Care Team Providers Care Yard Crane Operator Name Role Phone RosebudMary Alice davis Rajendra ROY Primary Care Provider [phone] Encounter Details Date Type Department Care Team (Late st Contact Info) Description 12/26/2011 Orders [place] [address] Abel Carlton MD [facility] [place] [address] Social History Tobacco Use Types Packs/Day Years [...] - 08/20/2014 This is a non-reportable exam. bAel Carlton MD IMG FILM LIBRARY ORD ERABLES RAD [address] [facility] [place] [address] documented in this encounter Visit Diagnoses Not on filedocumented in this encounter Care Teams Yard Crane Operator Relationship Specialty Start Date End Date Mary Alice Cage APRN PCP - General 10/12/11 11/12/18 documented as of this encounter
--- OUTSIDE RECORDS SUMMARY | 2024-07-24 00:56 | XMS_ITS | Encounter Summary ---
Author Organization [facility] [place] [address] Care Team Providers Care Dough Mixer Operator Name Role Phone MontgomeryMary Alice davis Rajendra ROY Primary Care Provider [phone] Encounter Details Date Type Department Care Team (Late st Contact Info) Description 12/21/2011 Orders [place] [address] Letty Vidal APRN [facility] DR GASTROENTER[place] [address] Abdominal distention (Primary Dx) Social History Tobacco [...] 02/04/2012 08:37 am) Patient Info ID: ? [id number] ? : ??[birth year] (51 yrs) Name: ? POPPY PINO ? Visit Date: 02/04/2012 08:29 am Performed By Performed By: ?Lashawn Daniel RDMS Attending: ? Karli TERRELL, Lucretia Lion Referred By: ? LETTY WORKMAN Service(s) Provided UABDLIM - Abdominal Limited Survey Single ? 87018 Organ or Quadrant - [id number] Indications Chronic Abdominal Distention, ? gallbladder issues [...] Final 02/04/2012 08:37 am) Patient Info ID: [id number] : [birth year] (51 yrs) Name: POPPY PINO Visit Date: 02/04/2012 08:29 am Performed By Performed By: Lashawn Daniel RDMS Attending: Lucretia Calvillo MD Referred By: LETTY WORKMAN Service(s) Provided UABDLIM - Abdominal Limited Survey Single 83610 Organ or Quadrant - [id number] Indications Chronic Abdominal Distention, ? gallbladder issues [...] pain documented in this encounter Care Teams Dough Mixer Operator Relationship Specialty Start Date End Date Mary Alice Cage APRN PCP - General 10/12/11 11/12/18 documented as of this encounter
--- OUTSIDE RECORDS SUMMARY | 2024-07-24 00:56 | XMS_ITS | Encounter Summary ---
Author Organization [facility] [place] [address] Care Team Providers Care Suppression Crew Leader Name Role Phone DeshaMary Alice davis Rajendra ROY Primary Care Provider [phone] Reason for Visit * Reason Comments Abdominal Pain Encounter Details Date Type Department Care Team (Late st Contact Info) Description 05/13/2012 1:00 PM EDT Office [place] [address] Prince Gentile MD [facility] DR 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 The methane data is remarkable fora single [...] pain documented in this encounter Care Teams Suppression Crew Leader Relationship Specialty Start Date End Date Mary Alice Cage APRN PCP - General 10/12/11 11/12/18 documented as of this encounter
--- OUTSIDE RECORDS SUMMARY | 2024-07-24 00:56 | XMS_ITS | Encounter Summary ---
[place] [address] Care Team Providers Care Decision Unit Rn Name Role Phone GageMary Alice davis Rajendra ROY Primary Care Provider [phone] Encounter Details Date Type Department Care Team (Latest Contact Info) Description 08/28/2012 8:30 AM EST - 08/28/2012 11:59 PM [facility] Hospital [place] [address] Calcified granuloma of lung (Primary Dx) Social [...] parenchymal disease (i.e. emphysema, ILD), and anemia. Mangle Press Catcher notes during the spirometric procedure state that [...] parenchymal disease (i.e. emphysema, ILD), and anemia. Mangle Press Catcher notes during the spirometric procedure state that [...] pulmonaryparenchymal disease (i.e. emphysema, ILD), and anemia. Mangle Press Catcher notes during the spirometric procedure state that [...] fibrosis documented in this encounter Care Teams Decision Unit Rn Relationship Specialty Start Date End Date Mary Alice Cage APRN PCP - General 10/12/11 11/12/18 documented as of this encounter
--- OUTSIDE RECORDS SUMMARY | 2024-07-24 00:56 | XMS_ITS | Encounter Summary ---
Author Organization [facility], [place] [address] Care Team Providers Care Leak Operator Paraffin Plant Name Role Phone AlleganyMary Alice davis MANUELA Primary Care Provider [phone] Encounter Details Date Type Department Care Team (Late st Contact Info) Description 06/23/2012 Orders [place] [address] Malia Vidal APRN [facility] [place] [address] Pulmonary nodules (Primary Dx) Social History Tobacco [...] field documented in this encounter Care Teams Leak Operator Paraffin Plant Relationship Specialty Start Date End Date Mary Alice Cage APRN PCP - General 10/12/11 11/12/18 documented as of this encounter
--- OUTSIDE RECORDS SUMMARY | 2024-07-24 00:56 | XMS_ITS | Encounter Summary ---
Author Organization [facility] [place] [address] Care Team Providers Care Break Off Worker Name Role Phone Mary Alice Cage MANUELA Primary Care Provider [phone] Reason for Visit * Reason Comments Follow-up Encounter Details Date Type Department Care Team (Late st Contact Info) Description 10/14/2012 4:15 PM EST [place] [address] SCHEDULE 1, PFT Osmany Holloway MD [facility] [place] [address] Dyspnea (Primary Dx) Discharge Disposition: Home Social [...] Procedure Name Priority Date/Time Associated Diagnosis Comments [id number] Routine 10/14/2012 5 :43 PM EST Dyspnea [...] Creatine Kinase 86 0 - 160 unit/L [facility] Blood specimen (specimen) 10/14/2012 5:43 PM EST 10/14/2012 5:47 PM EST Narrative Resulting Agency Comment Spec In Lab Osmany Overton MD CHEMISTRY ORDERABLE S [facility] * A1AT Serum Concentration (10/14/2012 5:43 PM EST) A1AT 171 100 - 190 mg/dL [facility] Comment: Test Performed by: [facility] [employer] [address], [place] [address] Farm Equipment Engineer: Keena Vogel, Ph.D. Blood specimen (specimen) 10/14/2012 5:43 PM EST 10/15/2012 8:20 AM EST Narrative Resulting Agency Comment Spec In Lab Osmany Overton MD [facility] S [facility] documented in this encounter Visit Diagnoses Diagnosis Dyspnea- Primary Other dyspnea and respiratory abnormality Dyspnea Other dyspnea and respiratory abnormality documented in this encounter Care Teams Break Off Worker Relationship Specialty Start Date End Date Mary Alice Cage APRN PCP - General 10/12/11 11/12/18 documented as of this encounter
--- OUTSIDE RECORDS SUMMARY | 2024-07-24 00:56 | XMS_ITS | Encounter Summary ---
Author Organization [facility] [place] [address] Care Team Providers Care Tailercpa Name Role Phone Mary Alice Cage MANUELA Primary Care Provider [phone] Encounter Details Date Type Department Care Team (Latest Contact Info) Description 08/07/2012 10:03 AM [facility] - 08/07/2012 11:59 PM [facility] Hospital [place] [address] CLINIC, Justin Babin MD [facility] DR GASTROENTEROLOGY [place] [address] Pulmonary nodules Discharge Disposition: Home Social History [...] field documented in this encounter Care Teams Tailercpa Relationship Specialty Start Date End Date Mary Alice Cage APRN PCP - General 10/12/11 11/12/18 documented as of this encounter
--- OUTSIDE RECORDS SUMMARY | 2024-07-24 00:56 | XMS_ITS | Encounter Summary ---
[place] [address] Care Team Providers Care Animal Treatment Investigator Name Role Phone Mary Alice Domingo APRN Primary Care Provider Encounter Details Date Type Department Care Team (Latest Contact Info) Description 02/04/2012 10:00 AM EDT Procedure [place] [address] CLINIC, Mary Alice Garcia, RN Nutcracker esophagus [...] DATE: 02/04/2012 PROVIDER: [place] ([id number]) INDICATION Slow passage of food, belching, regurgitation, bloating. METHODS Stationary esophageal manometry was performed with the Edxact esophageal motility system utilizing the Vend software with a 4-channel solid-state motility probe. [...] than 185 mmHg Justin Starkey, PhD, MD dandy operator Section of Gastroenterology and Hepatology [facility] [place] [address] V: [phone] F: [phone] MICKY/mian CC/EC: ANALI Vidal APRN * Mary Alice Galvan RN - 02/04/2012 9:37 AM EDT Esophageal manometry performed without difficulty and was well tolerated. Discharged from lab without voiced concerns. 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
--- OUTSIDE RECORDS SUMMARY | 2024-07-24 00:56 | XMS_ITS | Encounter Summary ---
[place] [address] Care Team Providers Care Greenhouse Manager Name Role Phone Mary Alice Cage APRN Primary Care Provider [phone] Reason for Visit * Reason Onset Date Comments Other 01/03/2012 fatty liver Encounter Details Date Type Department Care Team (Late st Contact Info) Description 01/03/2012 Telephone [place] [address] Bhavani Knowles RN Other (fatty liver) Social [...] phone and with GI clinic phone number: [phone]. documented in this encounter Plan of Treatment Not on file documented as of this encounter Visit Diagnoses Not on filedocumented in this encounter Care Teams Greenhouse Manager Relationship Specialty Start Date End Date Mary Alice Cage APRN PCP - General 10/12/11 11/12/18 documented as of this encounter
--- OUTSIDE RECORDS SUMMARY | 2024-07-24 00:56 | XMS_ITS | Encounter Summary ---
[place] [address] Care Team Providers Care Counter Hand Name Role Phone St. MartinMary Alice davis Rajendra ROY Primary Care Provider [phone] Reason for Visit * Reason Onset Date Comments Other 07/10/2012 assess GI Encounter Details Date Type Department Care Team (Late st Contact Info) Description 07/10/2012 Telephone [place] [address] Ashanti Talley RN Other (assess GI) Social [...] on filedocumented in this encounter Care Teams Counter Hand Relationship Specialty Start Date End Date Mary Alice Cage APRN PCP - General 10/12/11 11/12/18 documented as of this encounter
--- OUTSIDE RECORDS SUMMARY | 2024-07-24 00:56 | XMS_ITS | Encounter Summary ---
Author Organization [facility] [place] [address] Care Team Providers Care Mineral Economist Name Role Phone BryanMary Alice davis Rajendra ROY Primary Care Provider [phone] Encounter Details Date Type Department Care Team (Late st Contact Info) Description 09/11/2012 Orders [place] [address] Abel Carlton MD [facility] [place] [address] Social History Tobacco Use Types Packs/Day Years [...] IMG FILM LIBRARY ORD ERABLES RAD [address] [facility] [place] [address] documented in this encounter Visit Diagnoses Not on filedocumented in this encounter Care Teams Mineral Economist Relationship Specialty Start Date End Date Mary Alice Cage APRN PCP - General 10/12/11 11/12/18 documented as of this encounter
--- OUTSIDE RECORDS SUMMARY | 2024-07-24 00:56 | XMS_ITS | Encounter Summary ---
[place] [address] Care Team Providers Care Personal Driver Name Role Phone Mary Alice Cage APRN Primary Care Provider [phone] Reason for Visit * Reason Onset Date Comments Other 03/05/2012 calling her insu brionna re PPi Encounter Details Date Type Department Care Team (Late st Contact Info) Description 03/05/2012 Telephone [place] [address] Ashanti Talley RN Other (calling her insurance [...] on filedocumented in this encounter Care Teams Personal Driver Relationship Specialty Start Date End Date Mary Alice Cage APRN PCP - General 10/12/11 11/12/18 documented as of this encounter
--- OUTSIDE RECORDS SUMMARY | 2024-07-24 00:56 | XMS_ITS | Encounter Summary ---
[place] [address] Care Team Providers Care Staff Internist Office Based Only Name Role Phone Mary Alice Cage APRN Primary Care Provider [phone] Reason for Visit * Reason Onset Date Comments Other 12/24/2011 Aciphex and Wedg e Encounter Details Date Type Department Care Team (Late st Contact Info) Description 12/24/2011 Telephone [place] [address] Bhavani Knowles RN Other (Aciphex and Wedge) [...] on filedocumented in this encounter Care Teams Staff Internist Office Based Only Relationship Specialty Start Date End Date Mary Alice Cage APRN PCP - General 10/12/11 11/12/18 documented as of this encounter
--- OUTSIDE RECORDS SUMMARY | 2024-07-24 00:56 | XMS_ITS | Encounter Summary ---
Author Organization [facility] [place] [address] Care Team Providers Care Recycler Forklift Driver Truck Driver Name Role Phone Mary Alice Cage APRN Primary Care Provider [phone] Reason for Visit * Reason Onset Date Comments Medication Refill 08/19/2012 Encounter Details Date Type Department Care Team (Late st Contact Info) Description 08/19/2012 Refill [place] [address] Malia Vidal [facility] RE[facility] [place] [address] Social History Tobacco Use Types Packs/Day Years [...] on filedocumented in this encounter Care Teams Recycler Forklift Driver Truck Driver Relationship Specialty Start Date End Date Mary Alice Cage APRN PCP - General 10/12/11 11/12/18 documented as of this encounter
--- OUTSIDE RECORDS SUMMARY | 2024-07-24 00:56 | XMS_ITS | Encounter Summary ---
[place] [address] Care Team Providers Care Depot Manager Name Role Phone Mary Alice Cage APRN Primary Care Provider [phone] Reason for Visit * Reason Onset Date Comments Other 09/26/2012 put in and call pt for referral Encounter Details Date Type Department Care Team (Late st Contact Info) Description 09/26/2012 Telephone [place] [address] Ashanti Talley RN Other (put [...] on filedocumented in this encounter Care Teams Depot Manager Relationship Specialty Start Date End Date Mary Alice Cage APRN PCP - General 10/12/11 11/12/18 documented as of this encounter
--- OUTSIDE RECORDS SUMMARY | 2024-07-24 00:56 | XMS_ITS | Encounter Summary ---
Author Organization [facility] [address] Care Team Providers Care Fuel Cell Designer Name Role Phone Mary Alice Cage APRN Primary Care Provider [phone] Reason for Visit * Reason Onset Date Comments Other 04/16/2012 SBFT Encounter Details Date Type Department Care Team (Late st Contact Info) Description 04/16/2012 Telephone [place] [address] Bhavani Knowles RN Other (SBFT) Social History [...] PM EDT Received faxed SBFT results from [facility]. A copy of the results and letter to be sent to patient to her mailing address. documented in this encounter Plan of Treatment Not on file documented as of this encounter Visit Diagnoses Not on filedocumented in this encounter Care Teams Fuel Cell Designer Relationship Specialty Start Date End Date Mary Alice Cage APRN PCP - General 10/12/11 11/12/18 documented as of this encounter
--- OUTSIDE RECORDS SUMMARY | 2024-07-24 00:56 | XMS_ITS | Encounter Summary ---
[place] [address] Care Team Providers Care Municipal Clerk Name Role Phone Mary Alice Cage APRN Primary Care Provider [phone] Reason for Visit * Reason Onset Date Comments Medication Refill 03/05/2012 Encounter Details Date Type Department Care Team (Late st Contact Info) Description 03/05/2012 Refill [place] [address] Ashanti Talley RN Social History Tobacco Use [...] on filedocumented in this encounter Care Teams Municipal Clerk Relationship Specialty Start Date End Date Mary Alice Cage APRN PCP - General 10/12/11 11/12/18 documented as of this encounter
--- OUTSIDE RECORDS SUMMARY | 2024-07-24 00:56 | XMS_ITS | Encounter Summary ---
Author Organization [facility] [place] [address] Care Team Providers Care Fingernail Sculptor Name Role Phone ColumbusMary Alice davis [facility] Primary Care Provider [phone] Reason for Referral * Consultation (Routine) - Duplicate Referral Specialty Diagnoses / Procedures Referred By Chava t Referred To Contact Diagnoses FODMAP Diet Malia Vidal, [facility] [place] [address] Beth Blum LD [facility] [place] [address] Referral ID Status Reason Start Date Expiration Date Visits Requested Visits Authorized [id number] Duplicate Referral Consult Only 08/19/2012 02/15/2013 1 1 * Consultation (Routine) - Closed Specialty Diagnoses / Procedures Referred By Chava alejo Referred To Contact Otolaryngology Diagnoses Post-nasal drainage Malia Vidal [facility] [place] [address] [facility] Otolaryngology [address] [place] [phone] Referral ID Status Reason Start Date Expiration Date V isits Requested Visits Authorized [id number] Closed Consult, Test & Treat 08/19/2012 02/15/2013 1 1 * Consultation (Routine) - Closed Specialty Diagnoses / Procedures Referred By Contact Referred To Contact Pulmonary Disease / Pulmonology Diagnoses Abnormal chest CT Malia Vidal APRN [facility] [place] [address] [facility] Pulmonology [address] [place] [address] Referral ID Status Reason Start Date Expiration Date V isits Requested Visits Authorized [id number] Closed Consult, Test & Treat 08/19/2012 02/15/2013 1 1 * Consultation (Routine) - Closed Specialty Diagnoses / Procedures Referred By Contac t Referred To Contact Diagnoses FODMAP Diet OMalia Pena [facility] [place] [address] Beth Blum [facility] [address] Referral ID Status Reason Start Date Expiration Date V isits Requested Visits Authorized [id number] Closed Consult, Test & Treat 08/19/2012 02/15/2013 1 1 Encounter Details Date Type Department Care Team (Late st Contact Info) Description 08/19/2012 Orders [place] [phone] Malia Vidal [facility] [place] [address] Dyspepsia; Post-nasal drainage; Abnormal chest CT Social [...] abnormal chest CT. Plan: 1. Refer to net application support specialist. Will mail pt food logs prior 2 [...] organs documented in this encounter Care Teams Fingernail Sculptor Relationship Specialty Start Date End Date Mary Alice Cage APRN PCP - General 10/12/11 11/12/18 documented as of this encounter
--- OUTSIDE RECORDS SUMMARY | 2024-07-24 00:56 | XMS_ITS | Encounter Summary ---
[place] [address] Care Team Providers Care Computer Engineer Name Role Phone StanleyMary Alice davis Rajendra ROY Primary Care Provider [phone] Reason for Visit * Reason Onset Date Comments Other 03/05/2012 aciphex failed a nd wants spasm med? Encounter Details Date Type Department Care Team (Late st Contact Info) Description 03/05/2012 Telephone [place] [address] Ashanti Talley RN Other (aciphex [...] filedocumented in this encounter Care Teams Computer Engineer Relationship Specialty Start Date End Date Mary Alice Cage APRN PCP - General 10/12/11 11/12/18 documented as of this encounter
--- OUTSIDE RECORDS SUMMARY | 2024-07-24 00:56 | XMS_ITS | Encounter Summary ---
[place] [address] Care Team Providers Care Upholsterer Assembly Line Name Role Phone Mary Alice Cage APRN Primary Care Provider [phone] Reason for Visit * Reason Onset Date Comments Medication Refill 05/26/2012 Encounter Details Date Type Department Care Team (Late st Contact Info) Description 05/26/2012 Refill [place] [address] Ashanti Talley RN Social History Tobacco Use [...] on filedocumented in this encounter Care Teams Upholsterer Assembly Line Relationship Specialty Start Date End Date Mary Alice Cage APRN PCP - General 10/12/11 11/12/18 documented as of this encounter
--- OUTSIDE RECORDS SUMMARY | 2024-07-24 00:56 | XMS_ITS | Encounter Summary ---
Author Organization [facility] Musa adair [place] [id number] Care Team Providers Care Inside Sales Trainer Name Role Phone NilesMary Alice Rajendra ROY Primary Care Provider [phone] Reason for Referral * Surgical (Routine) - Closed Specialty Diagnoses / Procedures Referred By Chava alejo Referred To Contact General Surgery Diagnoses Dyspepsia Malia Vidal APRN [facility] [place] [address] Abel Carlton MD [facility] [place] [place] [address] Referral ID Status Reason Start Date Expiration Date V isits Requested Visits Authorized [id number] Closed Consult, Test & Treat 09/29/2012 03/28/2013 1 1 Encounter Details Date Type Department Care Team (Late st Contact Info) Description 09/29/2012 Orders [place] [address] Malia Vidal [facility] [place] [address] Dyspepsia (Primary Dx) Social History Tobacco Use [...] stomach documented in this encounter Care Teams Inside Sales Trainer Relationship Specialty Start Date End Date Mary Alice Cage APRN PCP - General 10/12/11 11/12/18 documented as of this encounter
--- OUTSIDE RECORDS SUMMARY | 2024-07-24 00:56 | XMS_ITS | Encounter Summary ---
[place] [address] Care Team Providers Care Recreational Director Name Role Phone Mary Alice Cage APRN Primary Care Provider [phone] Encounter Details Date Type Department Care Team (Late st Contact Info) Description 04/16/2012 Telephone [place] [address] Bhavani Knowles RN Social History Tobacco Use [...] results completed at a local hospital in [facility] were sent to [facility]. Patient unavailable for discussion. Left voice mail message with GI clinic phone number: [phone]. Note: according to [facility], no results for an SBFT have been received. documented in this encounter Plan of Treatment Not on file documented as of this encounter Visit Diagnoses Not on filedocumented in this encounter Care Teams Recreational Director Relationship Specialty Start Date End Date Mary Alice Cage APRN PCP - General 10/12/11 11/12/18 documented as of this encounter
--- OUTSIDE RECORDS SUMMARY | 2024-07-24 00:56 | XMS_ITS | Encounter Summary ---
[place] [address] Care Team Providers Care Vice President Of Contracts Name Role Phone BarnwellMary Alice davis Rajendra ROY Primary Care Provider [phone] Encounter Details Date Type Department Care Team (Latest Contact Info) Description 10/14/2012 3:21 PM EST - 10/14/2012 11:59 PM EST Hospital En[place] [address] Multiple nodules of lung (Primary Dx) Social [...] field documented in this encounter Care Teams Vice President Of Contracts Relationship Specialty Start Date End Date Mary Alice Cage APRN PCP - General 10/12/11 11/12/18 documented as of this encounter
--- OUTSIDE RECORDS SUMMARY | 2024-07-24 00:56 | XMS_ITS | Encounter Summary ---
[facility] [place] [address] Care Team Providers Care Manager Inspection Name Role Phone [place]Mary Alice davis Rajendra ROY Primary Care Provider [phone] Encounter Details Date Type Department Care Team (Latest Contact Info) Description 02/04/2012 8:05 AM EDT - 02/04/2012 11:59 PM EDT Hospital Encounter [place] [address] Abdominal distention Social History Tobacco Use Types [...] 02/04/2012 08:37 am) Patient Info ID: ? [id number] ? : [birth year] (51 yrs) Name: ? POPPY PINO ? Visit Date: 02/04/2012 08:29 am Performed By Performed By: ?Lashawn Daniel RDMS Attending: ? Lucretia Calvillo MD Referred By: ? LETTY WORKMAN Service(s) Provided UABDLIM - Abdominal Limited Survey Single ? 88798 Organ or Quadrant - [id number] Indications Chronic Abdominal Distention, ? gallbladder issues [...] Final 02/04/2012 08:37 am) Patient Info ID: [id number] : [birth year] (51 yrs) Name: POPPY PINO Visit Date: 02/04/2012 08:29 am Performed By Performed By: Lashawn Daniel RDMS Attending: Lucretia Calvillo MD Referred By: LETTY WORKMAN Service(s) Provided UABDLIM - Abdominal Limited Survey Single 08777 Organ or Quadrant - [id number] Indications Chronic Abdominal Distention, ? gallbladder issues [...] pain documented in this encounter Care Teams Manager Inspection Relationship Specialty Start Date End Date Mary Alice Cage, MANUELA PCP - General 10/12/11 11/12/18 documented as of this encounter
--- OUTSIDE RECORDS SUMMARY | 2024-07-24 00:56 | XMS_ITS | Encounter Summary ---
[place] [address] Care Team Providers Care Pizza Cook Name Role Phone Mary Alice Cage MANUELA Primary Care Provider Reason for Visit * Reason Onset Date Comments Other 12/21/2011 PREFERRED PH[facility] Encounter Details Date Type Department Care Team (Late st Contact Info) Description 12/21/2011 Telephone [place] [address] Bhavani Knowles RN Other (PREFERRED PHARMACY) Social [...] preferred pharmacy. Patient was connected to [facility], so she can get scheduled for an abdominal ultrasound. documented in this encounter Plan of Treatment Not on file documented as of this encounter Visit Diagnoses Not on filedocumented in this encounter Care Teams Pizza Cook Relationship Specialty Start Date End Date Mary Alice Cage APRN PCP - General 10/12/11 11/12/18 documented as of this encounter
--- OUTSIDE RECORDS SUMMARY | 2024-07-24 00:56 | XMS_ITS | Encounter Summary ---
Author Organization [facility] [address] Care Team Providers Care Leak Gang Supervisor Name Role Phone Mary Alice Cage APRN Primary Care Provider [phone] Reason for Visit * Reason Onset Date Comments Medication Refill 12/21/2011 Encounter Details Date Type Department Care Team (Late st Contact Info) Description 12/21/2011 Refill [place] [address] Malia Vidal JOB COACHING [facility] DR GASTROENTEROLOGY [place] [address] Social History Tobacco Use Types Packs/Day Years [...] on filedocumented in this encounter Care Teams Leak Gang Supervisor Relationship Specialty Start Date End Date Mary Alice Cage APRN PCP - General 10/12/11 11/12/18 documented as of this encounter
--- OUTSIDE RECORDS SUMMARY | 2024-07-24 00:56 | XMS_ITS | Encounter Summary ---
[place] [address] Care Team Providers Care Aerial Gunner Name Role Phone Mary Alice Cage APRN Primary Care Provider [phone] Reason for Visit * Reason Onset Date Comments Medication Refill 05/30/2012 Encounter Details Date Type Department Care Team (Late st Contact Info) Description 05/30/2012 Ref[place] [address] Ashanti Talley RN Social History Tobacco Use [...] on filedocumented in this encounter Care Teams Aerial Gunner Relationship Specialty Start Date End Date Mary Alice Cage APRN PCP - General 10/12/11 11/12/18 documented as of this encounter
--- OUTSIDE RECORDS SUMMARY | 2024-07-24 00:56 | XMS_ITS | Encounter Summary ---
[place] [address] Care Team Providers Care Digital Intern Name Role Phone Mary Alice Cage APRN Primary Care Provider [phone] Reason for Visit * Reason Onset Date Comments Medication Refill 03/05/2012 Encounter Details Date Type Department Care Team (Late st Contact Info) Description 03/05/2012 Refill [place] [address] Ashanti Talley RN Social History Tobacco Use [...] filedocumented in this encounter Care Teams Digital Intern Relationship Specialty Start Date End Date Mary Alice Cage APRN PCP - General 10/12/11 11/12/18 documented as of this encounter
--- OUTSIDE RECORDS SUMMARY | 2024-07-24 00:56 | XMS_ITS | Encounter Summary ---
Author Organization [facility] [place] [address] Care Team Providers Care Personal Financial Counselor Name Role Phone WorcesterMary Aliec davis Rajendra ROY Primary Care Provider [phone] Encounter Details Date Type Department Care Team (Late st Contact Info) Description 09/09/2012 Orders [place] [address] Abel Carlton MD [facility] [place] [address] Social History Tobacco Use Types Packs/Day Years [...] MD IMG FILM LIBRARY ORD ERABLES RAD [address] [facility] [place] [address] documented in this encounter Visit Diagnoses Not on filedocumented in this encounter Care Teams Personal Financial Counselor Relationship Specialty Start Date End Date Mary Alice Cage APRN PCP - General 10/12/11 11/12/18 documented as of this encounter
--- OUTSIDE RECORDS SUMMARY | 2024-07-24 00:56 | XMS_ITS | Encounter Summary ---
Author Organization [facility] [place] [address] Care Team Providers Care Box Annealer Name Role Phone CatawbaMary Alice davis MANUELA Primary Care Provider [phone] Encounter Details Date Type Department Care Team (Late st Contact Info) Description 10/14/2012 2:00 PM EST Office [place] [address] Beth Blum LD [place] [address] Abdominal distension (Primary Dx) Discharge Disposition: Home [...] 2 weeks and we will re evaluate ([phone]) documented in this encounter Progress Notes * [...] history: Vitals 10/14/2012 08/28/2012 08/28/2012 05/26/2012 Height (Guamanian) 5' 4 5' 2 5' 4 Height (Metric) 162.6 cm 157.5 cm 162.6 cm Weight (Guamanian) 158 lbs 160 lbs 167 lbs Weight (Metric) 71.668 kg 72.576 kg 75.751 kg BODY MASS INDEX 27.11 kg/m2 29.26 kg/m2 28.65 kg/m2 Vitals 11/09/2011 Height (Guamanian) 5' 3.78 Height (Metric) 162 cm Weight (Guamanian) 172 lbs Weight (Metric) 78.019 kg BODY [...] not work because of this. Worked at [employer]. 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 [...] 2 weeks and we will re evaluate ([phone]) documented in this encounter Plan of Treatment Not on file documented as of this encounter Procedures Procedure Name Priority Date/Time Associated Diagnosis Comments VITAMIN D, 25-HYDROXY Routine 10/14/2012 2:50 PM EST Abdominal distension documented in this encounter Results * (ABNORMAL) VIT D Total Evaluation (10/14/2012 2:50 PM EST) Vitamin D Total 25 OH 10(L) 30 - 100 ng/mL [facility] Comment: Deficient <10 ng/mL Insufficient 10 to [...] Lab Justin Starkey MD CHEMISTRY ORDERABLES [facility] documented in this encounter Visit Diagnoses Diagnosis Abdominal distension- Primary Flatulence, eructation, and gas pain documented in this encounter Care Teams Box Annealer Relationship Specialty Start Date End Date Mary Alice Cage APRN PCP - General 10/12/11 11/12/18 documented as of this encounter
--- OUTSIDE RECORDS SUMMARY | 2024-07-24 00:56 | XMS_ITS | Encounter Summary ---
[place] [address] Care Team Providers Care Driver License Reviewing Officer Name Role Phone NilesCariepham Drew APRN Primary Care Provider [phone] Reason for Visit * Reason Onset Date Comments Prior Authorization 12/24/2011 Dexilant Encounter Details Date Type Department Care Team (Late st Contact Info) Description 12/24/2011 Telephone [place] [address] Debbie Skinner RNsenior administrator support (Dexilant) Social History Tobacco Use Types Packs/Day [...] Phone#: Insurance & Phone #: [employer] [phone] ID #: [id number] Trialed (dosage, frequency): Approved medications: Next Step: Notes: [place] denied-pt needs to have a trial of Aciphex. Would you like me to go ahead and order that? documented in this encounter Plan of Treatment Not on file documented as of this encounter Visit Diagnoses Not on filedocumented in this encounter Care Teams Driver License Reviewing Officer Relationship Specialty Start Date End Date Mary Alice Cage APRN PCP - General 10/12/11 11/12/18 documented as of this encounter
--- OUTSIDE RECORDS SUMMARY | 2024-07-24 00:56 | XMS_ITS | Encounter Summary ---
Author Organization [facility] Address [facility] [place] [address] Care Team Providers Care Flame Hardener Name Role Phone YumaMary Alice davis Rajendra ROY Primary Care Provider Encounter Details Date Type Department Care Team (Late st Contact Info) Description 05/26/2012 1:45 PM EDT - 05/26/2012 11:59 PM EDT Hospital Encounter XRay at [address] [place] [address] Bloat Social History Tobacco Use Types Packs/Day [...] pain documented in this encounter Care Teams Flame Hardener Relationship Specialty Start Date End Date Mary Alice Cage APRN PCP - General 10/12/11 11/12/18 documented as of this encounter
--- OUTSIDE RECORDS SUMMARY | 2024-07-24 00:56 | XMS_ITS | Encounter Summary ---
Author Organization [facility] [place] [address] Care Team Providers Care Spike Maker Name Role Phone Mary Alice Cage APRN Primary Care Provider [phone] Reason for Visit * Reason Onset Date Comments Medication Refill 05/28/2012 Encounter Details Date Type Department Care Team (Late st Contact Info) Description 05/28/2012 [place] [address] Malia Vidal DRUG SAFETY SPECIALIST [facility] [facility] [address] GASTROENTEROLOGY [place] [address] Social History Tobacco Use Types Packs/Day Years [...] on filedocumented in this encounter Care Teams Spike Maker Relationship Specialty Start Date End Date Mary Alice Cage APRN PCP - General 10/12/11 11/12/18 documented as of this encounter
--- OUTSIDE RECORDS SUMMARY | 2024-07-24 00:56 | XMS_ITS | Encounter Summary ---
Author Organization [facility] [place] [address] Care Team Providers Care Medical Scientific Liaison Name Role Phone Mary Alice Cage MANUELA Primary Care Provider [phone] Encounter Details Date Type Department Care Team (Late st Contact Info) Description 07/22/2012 [place] [address] José Manuel Irwin MD [facility] [place] [address] Social History Tobacco Use Types Packs/Day Years [...] a Non-reportable exam José Manuel Irwin MD [facility] FILM LIBRARY ORD ERABLES documented in this encounter Visit Diagnoses Not on filedocumented in this encounter Care Teams Medical Scientific Liaison Relationship Specialty Start Date End Date Mary Alice Cage APRN PCP - General 10/12/11 11/12/18 documented as of this encounter
--- OUTSIDE RECORDS SUMMARY | 2024-07-24 00:57 | XMS_ITS | Encounter Summary ---
Author Organization [facility] [place] [address] Care Team Providers Care High School Academic Coach Name Role Phone Mary Alice Cage MANUELA Primary Care Provider [phone] Encounter Details Date Type Department Care Team (Latest Contact Info) Description 12/11/2011 9:10 AM EDT - 12/11/2011 11:59 PM EDT Hospital Encounter [place] [address] CLINIC, DR MATEUSZ Keller, Osmany [place] MD [facility] GASTROENTEROLOGY [place] [id number] Dyspepsia Discharge Disposition: Home Social History Tobacco [...] was drawn around the stomach and then jpduv-hsekhxilrkecz-bctyopfs plotted. FINDINGS: Activity is initially seen within [...] stomach documented in this encounter Care Teams High School Academic Coach Relationship Specialty Start Date End Date Mary Alice Cage APRN PCP - General 10/12/11 11/12/18 documented as of this encounter
--- OUTSIDE RECORDS SUMMARY | 2024-07-24 00:57 | XMS_ITS | Encounter Summary ---
[place] [address] Care Team Providers Care Traffic Engineering Director Name Role Phone CidraMary Alice davis MANUELA Primary Care Provider [phone] Reason for Visit * Reason Onset Date Comments Other 12/03/2011 Celiac Disease, tTG Encounter Details Date Type Department Care Team (Late st Contact Info) Description 12/03/2011 Telephone [place] [address] Bhavani Knowles RN Other (Celiac Disease, tTG) [...] on filedocumented in this encounter Care Teams Traffic Engineering Director Relationship Specialty Start Date End Date Mary Alice Cage APRN PCP - General 10/12/11 11/12/18 documented as of this encounter
--- OUTSIDE RECORDS SUMMARY | 2024-07-24 00:57 | XMS_ITS | Encounter Summary ---
[place] [address] Care Team Providers Care Ict Business Development Manager Name Role Phone Mary Alice Cage APRN Primary Care Provider [phone] Reason for Visit * Reason Onset Date Comments Other 12/18/2011 test results Encounter Details Date Type Department Care Team (Late st Contact Info) Description 12/18/2011 Telephone [place] [address] Bhavani Knowles RN Other (test results) Social [...] on filedocumented in this encounter Care Teams Ict Business Development Manager Relationship Specialty Start Date End Date Mary Alice Cage APRN PCP - General 10/12/11 11/12/18 documented as of this encounter
--- OUTSIDE RECORDS SUMMARY | 2024-07-24 00:57 | XMS_ITS | Referral Summary ---
Author Organization [facility] Address [address] [place] [address] Care Team Providers Care Yoga Coordinator Name Role Phone Cb Florence PA-C Primary Care Provider + Social History Tobacco Use Types Packs/Day Years Used Date Smoking Tobacco: Never Assessed Comments Unknown Sex and Gender Information Value Date Recorded Sex Assigned at Not on file Legal Sex Female 18:19 EST Gender Identity Not on file Sexual Orientation Not on file Plan of Treatment Not on file Care Teams Yoga Coordinator Relationship Specialty Start Date End Date Cb Florence PA-C [address] [place] [address] PCP - General 04/24/16
--- OUTSIDE RECORDS SUMMARY | 2024-07-24 00:57 | XMS_ITS | Encounter Summary ---
[place] [address] Care Team Providers Care Manager Administration Name Role Phone Mary Alice Cage APRN Primary Care Provider [phone] Reason for Visit * Reason Onset Date Comments Other 12/03/2011 appointment Encounter Details Date Type Department Care Team (Late st Contact Info) Description 12/03/2011 Telephone [place] [address] Bhavani Knowles RN Other (appointment) Social History [...] mailing address. Patient was connected to GI rehabilitation aide/scheduler to be scheduled for the above mentioned [...] filedocumented in this encounter Care Teams Manager Administration Relationship Specialty Start Date End Date Mary Alice Cage APRN PCP - General 10/12/11 11/12/18 documented as of this encounter
--- OUTSIDE RECORDS SUMMARY | 2024-07-24 00:57 | XMS_ITS | Encounter Summary ---
[place] [address] Care Team Providers Care Business Support Liaison Name Role Phone Mary Alice Cage APRN Primary Care Provider [phone] Reason for Visit * Reason Onset Date Comments Other 11/19/2011 Encounter Details Date Type Department Care Team (Late st Contact Info) Description 11/19/2011 Telephone [place] [address] Lucia Cui Other Social History Tobacco Use [...] on filedocumented in this encounter Care Teams Business Support Liaison Relationship Specialty Start Date End Date Mary Alice Cage APRN PCP - General 10/12/11 11/12/18 documented as of this encounter
--- OUTSIDE RECORDS SUMMARY | 2024-07-24 00:57 | XMS_ITS | Encounter Summary ---
[place] [address] Care Team Providers Care Train Director Name Role Phone Mary Alice Cage APRN Primary Care Provider Encounter Details Date Type Department Care Team (Late st Contact Info) Description 12/19/2011 External Results [place] [address] Provider, Scanning Social History Tobacco Use Types [...] on filedocumented in this encounter Care Teams Train Director Relationship Specialty Start Date End Date Mary Alice Cage APRN PCP - General 10/12/11 11/12/18 documented as of this encounter
--- OUTSIDE RECORDS SUMMARY | 2024-07-24 00:57 | XMS_ITS | Encounter Summary ---
[place] [address] Care Team Providers Care Data Management Manager Name Role Phone MingoMary Alice davis Rajendra ROY Primary Care Provider [phone] Reason for Visit * Reason Onset Date Comments Other 12/20/2011 Abdominal disten tion Encounter Details Date Type Department Care Team (Late st Contact Info) Description 12/20/2011 Telephone [place] [phone] Bhavani Knowles RN Other (Abdominal distention) Social [...] on filedocumented in this encounter Care Teams Data Management Manager Relationship Specialty Start Date End Date Mary Alice Cage APRN PCP - General 10/12/11 11/12/18 documented as of this encounter
--- OUTSIDE RECORDS SUMMARY | 2024-07-24 00:57 | XMS_ITS | Encounter Summary ---
Author Organization [facility] Address [address] [place] [address] Care Team Providers Care Transmission Design Engineer Name Role Phone Erika Saavedra MD Primary Care Provider Encounter Details Date Type Department Care Team (Late st Contact Info) Description 04/17/2016 Results Only [facility] [phone] Carmella Aguilera, [address] [place], [place] [phone] Social History Tobacco Use Types Packs/Day Years [...] ? POPPY PINO ? Accession #: ? [id number] ? : ? 1960 (Age: 55) ??F [...] a variable amount of melanin pigment. ??(Dr. Salmon)/ljn Document reviewed and electronically signed by: ZAYRA [...] (ASCP) 04/20/2016 9:17 AM End of Report [facility] 04/17/2016 21:0 6 EDT 04/19/2016 21:06 EDT us Carmella Aguilera DO PATHOLOGY ORDERABLES Fi nal Result [facility] [address] [place] [address] documented in this encounter Visit Diagnoses Not on filedocumented in this encounter Care Teams Transmission Design Engineer Relationship Specialty Start Date End Date Erika Saavedra MD [address] [place], [place] [id number] PCP - General 09/27/11 04/23/16 documented as of this encounter
--- OUTSIDE RECORDS SUMMARY | 2024-07-24 00:57 | XMS_ITS | Encounter Summary ---
Author Organization [facility] [address] [place] [address] Care Team Providers Care Fitness Sales Associate Name Role Phone EdgarMary Alice davis Rajendra ROY Primary Care Provider [phone] Reason for Visit * Reason Onset Date Comments Medication Refill 12/03/2011 Encounter Details Date Type Department Care Team (Late st Contact Info) Description 12/03/2011 Ref[place] [address] Malia Vidal CARDIAC SPECIALIST [facility] DR GASTROENTER[place] [address] Dyspepsia (Primary Dx) Social History Tobacco Use [...] was drawn around the stomach and then icgmm-jjoqabirqmlqm-[id number] plotted. FINDINGS: Activity is initially seen within [...] stomach documented in this encounter Care Teams Fitness Sales Associate Relationship Specialty Start Date End Date Mary Alice Cage APRN PCP - General 10/12/11 11/12/18 documented as of this encounter
--- OUTSIDE RECORDS SUMMARY | 2024-07-24 00:57 | XMS_ITS | Clinical Summary ---
Author Organization [facility] Address [address] [place] [address] Care Team Providers Care Advertising Layout Worker Name Role Phone Cb Florence PA-C Primary [...] Last Done Comments Hepatitis C Screen 1960 COVID-19 Vaccine (2023-25 season) 2024 RSV Immunization ( o r 60+ Years) (1 - 1-dose 75+ series) 2037 Care Teams Advertising Layout Worker Relationship Specialty Start Date End Date Cb Florence PA-C [address] [place] [phone] PCP - General 04/24/16
--- OUTSIDE RECORDS SUMMARY | 2024-07-24 00:57 | XMS_ITS | Encounter Summary ---
Author Organization [facility] [place] [address] Care Team Providers Care Steel Erecting Pusher Name Role Phone Mary Alice Cage MANUELA Primary Care Provider [phone] Reason for Visit * Reason Comments GI Problem Encounter Details Date Type Department Care Team (Late st Contact Info) Description 11/09/2011 12:00 PM EDT Office Visit [place] [address] Osmany Keller MD [facility] [place] [address] Abdominal pain (Primary Dx) Discharge Disposition: Home [...] GI issues. Symptoms began late last summer. [place] like she had pulled her abdominal muscles. [...] celiac. Over 60 minutes spent in direct kauj-tc-[id number] discussion of symptoms and planning further management. [...] site documented in this encounter Care Teams Steel Erecting Pusher Relationship Specialty Start Date End Date Mary Alice Cage, MANUELA PCP - General 10/12/11 11/12/18 documented as of this encounter
--- OUTSIDE RECORDS SUMMARY | 2024-07-24 00:57 | XMS_ITS | Encounter Summary ---
Author Organization [facility] Address [address] [place] [address] Care Team Providers Care Cricket Coach Name Role Phone Demar Rabago PA-C Primary Care Provider + Encounter Details Date Type Department Care Team ([facility] st Contact Info) Description 05/13/2019 Results Only [facility] [phone] Demar Rabago PA-C [address] [place] [phone] Social History Tobacco Use Types Packs/Day Years [...] when reading/interpreti ng unformatted reports. Name: ? QUINCY PINOKIE ? Accession #: ? [id number] ? : ? 1960 (Age: 58) ??F [...] types 16,18,31,33,35, 39,45,51,52,56,58, 59,66, and 68 by back closer mediated amplification. Comments Document reviewed and electronically signed by: ? System Interface ? Report date: 05/19/2019 By the signature above, the attending physician certifies that he/she has personally conducted a gross and/or microscopic examination of the described specimens and rendered or confirmed the above diagnosis. End of Report [facility] 05/13/2019 05/15/2019 us Demar Rabago PA-C PATHOLOGY ORDERABLES Fin al Result [facility] [address] [place] [address] documented in this encounter Visit Diagnoses Not on filedocumented in this encounter Care Teams Cricket Coach Relationship Specialty Start Date End Date Demar Rabago PA-C [address] [place] [phone] PCP - General 04/24/16 documented as of this encounter
--- OUTSIDE RECORDS SUMMARY | 2024-07-24 00:57 | XMS_ITS | Encounter Summary ---
Author Organization [facility] Address [address] [place] [address] Care Team Providers Care Bushel Worker Name Role Phone Unknown, Provider Primary Care Provider January ilshmuel Encounter Details Date Type Department Care Team (Late st Contact Info) Description 09/21/2011 Results Only [facility] [phone] Raghu Figueroa, DO [address] [place] [address] Social History Tobacco Use Types [...] when reading/interpreti ng unformatted reports. Name: ? REBECCACHARLES POPPY ? Accession #: ? [id number] ? : ? 1960 (Age: 51) ??F [...] Brand who agrees with the diagnosis. ??(Dr. Malloy)/ljn Document reviewed and electronically signed by: [place] [...] specimen is entirely submitted as (D). (Thomas Connolly)/[facility] End of Report [facility] 09/21/2011 09/21/2011 11: 16 EST us Raghu Figueroa DO PATHOLOGY ORDERABLES Final Res ult [facility] [address] [place] [address] documented in this encounter Visit Diagnoses Not on filedocumented in this encounter Care Teams Bushel Worker Relationship Specialty Start Date End Date Unknown, Provider, PCP - General 09/24/11 09/26/11 documented as of this encounter
--- OUTSIDE RECORDS SUMMARY | 2024-07-24 00:57 | XMS_ITS | Encounter Summary ---
[place] [address] Care Team Providers Care Lead Material Handler Name Role Phone GreenleeMary Alice davis MANUELA Primary Care Provider [phone] Reason for Visit * Reason Onset Date Comments Other 11/27/2011 Request for pain medicine Encounter Details Date Type Department Care Team (Late st Contact Info) Description 11/27/2011 Telephone [place] [address] Bhavani Knowles RN Other (Request for pain [...] ID'd phone with GI clinic phone number: [phone]. Note the following per Dr. Keller's note [...] celiac. Over 60 minutes spent in direct lsqw-qe-yvub discussion of symptoms and planning further management. documented in this encounter Plan of Treatment Not on file documented as of this encounter Visit Diagnoses Not on filedocumented in this encounter Care Teams Lead Material Handler Relationship Specialty Start Date End Date Mary Alice Cage APRN PCP - General 10/12/11 11/12/18 documented as of this encounter
--- OUTSIDE RECORDS SUMMARY | 2024-07-24 00:57 | XMS_ITS | Encounter Summary ---
Author Organization [facility] Address [address] [place] [address] Care Team Providers Care Drafter Automotive Design Name Role Phone Radha Gan MD Primary Care Provider [phone] Encounter Details Date Type Department Care Team (Late st Contact Info) Description 11/28/2011 Results Only [facility] [phone] Radha Gan MD [address] [place], [place] [phone] Social History Tobacco Use Types Packs/Day Years [...] taken when reading/interpreting unformatted reports. Name: ? POPPY PINO ? Accession #: ? [id number] ? : ? 1960 (Age: 51) ??F ? Collect Date: ? 11/28/2011 ? Location: ? [facility] ? Receive Date: ? 11/29/2011 ? Provider: RADHA GAN MD Copy to: ? Final Pathologic Diagnosis: ? Skin of gluteal cleft, right, shave biopsy: - Condyloma acuminatum. ??See comment. Comment: ? Dr. Jeff Cardenas has reviewed this case and concurs with the diagnosis. (Dr. Salmon)/[facility] Microscopic Description: ? There is orthohyperkeratosis with foci of parakeratosis. ??The epidermis is acanthotic with low papillomatosis and anastomosing rete ridges. ??The superficial keratinocytes show variable degrees of perinuclear vacuolization and nuclear hyperchromasia. ??(Dr. Salmon)/[facility] Document reviewed and electronically signed by: ZAYRA [...] and entirely submitted as (A1) and (A2).(Judi Lucas)/lgk End of Report [facility] 11/28/2011 11/29/2011 9:1 2 EDT us Radha Gan MD PATHOLOGY ORDERABLES Final Resul t [facility] [address] [place] [address] documented in this encounter Visit Diagnoses Not on filedocumented in this encounter Care Teams Drafter Automotive Design Relationship Specialty Start Date End Date Radha Gan MD [address] [place] [address] PCP - General 09/27/11 04/23/16 documented as of this encounter
--- OUTSIDE RECORDS SUMMARY | 2024-07-24 00:57 | XMS_ITS | Encounter Summary ---
Author Organization [facility] Address [address] [place] [address] Care Team Providers Care Director Of Compensation Name Role Phone Erika Saavedra MD Primary Care Provider [phone] Encounter Details Date Type Department Care Team (Latest Contact Info) Description 04/17/2016 11:34 EDT - 04/17/2016 23:59 EDT Hospital Encounter [address] [address] Unknown, Provider, MD Discharge Disposition: Auto Discharge [...] in this encounter Care Teams Director Of Compensation Relationship Specialty Start Date End Date Erika Saavedra MD [address] [place] [address] PCP - General 09/27/11 04/23/16 documented as of this encounter
--- OUTSIDE RECORDS SUMMARY | 2024-07-24 00:57 | XMS_ITS | Encounter Summary ---
[place] [address] Care Team Providers Care Orthopedic Shoe Maker Name Role Phone LangladeMary Alice davis MANUELA Primary Care Provider [phone] Reason for Visit * Reason Onset Date Comments Other 11/30/2011 Encounter Details Date Type Department Care Team (Late st Contact Info) Description 11/30/2011 [place] [address] Adelaida Walker Other Social History Tobacco Use [...] like to have them here. Unfortunately This corporate secretary could not find the appointments suggested. Pt also noted that she has called previous to this to have her Most [facility] unfortunately this is not in our information system as of yet. Plan with patient: Acquire office note not transcribed and fax to PCP. Once office note available- assist with scheduling suggested appointments... Pt agreeable. documented in this encounter Plan of Treatment Not on file documented as of this encounter Visit Diagnoses Not on filedocumented in this encounter Care Teams Orthopedic Shoe Maker Relationship Specialty Start Date End Date Mary Alice Cage APRN PCP - General 10/12/11 11/12/18 documented as of this encounter
== END 2024-07-24 00:59 ==
LOC: DI 00:39
PROVIDERS: PCP Physician Assistant Medical; Visit Provider Physician Assistant Medical
DX: R92.8 Other abnormal and inconclusive findings on diagnostic imaging of breast (principal); Z12.31 Encounter for screening mammogram for malignant neoplasm of breast
CPT/HCPCS: 76642; 77061; 77065; G0279

== ENCOUNTER 2025-01-20 01:51 | Outpatient (CLI) | payer MEDICARE, OTHER, MEDICAID, SELFPAY ==
--- NOTE | 2025-01-20 | DI.US_ITS ---
Exam(s) US BREAST RT COMPLETE MG MAMMO DIAGNOSTIC BI EXAM: MG MAMMO DIAGNOSTIC BI and U/S breast RT complete CLINICAL HISTORY: R92.8 Other abn inconclusive findings on DI of breast,6 mo f/u, RT breast. TECHNIQUE: Craniocaudal and mediolateral oblique Full Field Digital Mammography views with Computer Aided Diagnosis followed by Tomosynthesis and complete right breast ultrasound. All 4 quadrants of t he right breast, the right axilla and right retroareolar region were evaluated sonographically. COMPARISON: Comparison is made with prior examinations. FINDINGS: Mammography/Tomosynthesis: Masses/Architectural Distortion: The well-circumscribed nodule in the outer right breast is stable. No suspicious nodules or architectural distortion is seen. Microcalcifictions: No suspicious pleomorphic-type are seen. Skin Thickening/Nipple Retraction: None. Complete right breast US: Echotexture: Normal appearance of the glandular tissue. Shadowing: No suspicious foci. Cyst: None. Solid lesions: The well-circumscribed nodule at the 7 o'clock position 2 cm from the nipple is presen t and unchanged. It measures 0.5 x 1.1 x 1.4 cm. No other cystic or solid nodules are seen in the r ight breast. Ductal dilation: None. IMPRESSION: 1. No evidence of malignancy is noted. 2. Unless there is more urgent need, follow-up screening mammography is recommended, as per [place] [employer] guidelines. 3. The findings were discussed with the patient on the date of the examination. BI-RADS Category 2 - Benign Findings Breast Density - Category B - There are scattered areas of fibroglandular density. Breast density Category C or D implies that the patient has dense breast tissue. Dense breast tissue can make it harder to find cancer on a mammogram. Dense breast tissue is also associated with an incr eased risk of breast cancer. This information about the result of the mammogram report was provided to the patient to raise their awareness. Use this report when you speak with the patient about their risks for breast cancer, which includes their family history. At that time, you may recommend additional screening tests (Ultrasoun d or MRI) as these tests may add significant information. A negative radiographic report should not delay biopsy if a dominant or clinically suspicious mass is present. Up to ten percent of cancers are not identified on mammography. A negative report may reinforce clinical impression. Adenosis and dense breasts may obscure an underlying neoplasm. False positive reports average 6 to 10%. Patient will receive a letter notifying them of these results.
== END 2025-01-20 02:11 ==
LOC: DI 01:52
PROVIDERS: PCP Physician Assistant Medical; Visit Provider Physician Assistant Medical
DX: Z12.31 Encounter for screening mammogram for malignant neoplasm of breast (principal); R92.8 Other abnormal and inconclusive findings on diagnostic imaging of breast
CPT/HCPCS: 76642; 77062; 77066; G0279

== ENCOUNTER 2025-01-29 00:25 | Outpatient (CLI) | payer MEDICARE, OTHER, MEDICAID, SELFPAY ==
--- NOTE | 2025-01-29 | DI.US_ITS ---
Exam(s) US AAA SCREENING EXAM: US AAA SCREENING CLINICAL HISTORY: F/u CT 01/20/24 showing dilatation of ascending thoracic aorta 4.1 cm, COMPARISON: US ABDOMEN ULTRASOUND (P) from 09/09/2017 FINDINGS: Abdominal Aorta: Proximal: 2.6 cm Mid: 2.4 cm Distal: 2.2 cm Iliacs: Right: 1.1 cm. Tortuous. Left: 1.1 cm. Tortuous IMPRESSION: No evidence of abdominal aortic aneurysm. DATA REPOSITORY:
--- NOTE | 2025-01-29 | DI.CTLCSR_ITS ---
Exam(s) CT CHEST LUNG CANCER SCREEN EXAM: CT CHEST LUNG CANCER SCREEN CLINICAL HISTORY: Nicotine dependence, cigarettes, F17.210; screening TECHNIQUE: Imaging Protocol: Axial computed tomography images with coronal and sagittal reformatted images were created and reviewed. Lung Computer Aided Detection (CAD) was utilized. COMPARISON: CT ABD PELVIS WITH CONTRAST from 09/11/[address] CHEST LUNG CANCER SCREEN from 01/19/[address] CHEST LUNG CANCER SCREEN from 01/20/2024 FINDINGS: Tracheobronchial tree: Patent where visualized. No bronchiectasis. Pulmonary parenchyma: Emphysematous changes are present in the lungs. There are calcified granuloma present throughout the lungs. No focal consolidating infiltrates are present. Lung Nodules: There is a stable noncalcified 5 mm nodule in the left upper lobe (series 4, image 54). No new noncalcified pulmonary nodules. Mediastinum and Barb: No dominant adenopathy or fluid collection. The esophagus is unremarkable. Thyroid gland: There is again seen a calcified right thyroid nodule which appears stable. No follow-up is recommended. Lymph nodes: Unremarkable. Pleura: No effusion or pneumothorax. Heart: The heart is not dilated. Coronary artery calcifications are present. No pericardial effusion. Aorta: The ascending thoracic aorta measures 4.1 x 4 cm.Atherosclerotic calcifications are present. Upper abdomen: The left adrenal nodule is stable. This is been present since 2012. No follow-up is recommended. This likely reflects a benign adenoma. Soft Tissues: Unremarkable. Bones: Within normal limits. There is calcific tendinitis associated with the left shoulder. IMPRESSION: No new pulmonary nodules. Stable left upper lobe 5 mm pulmonary nodule. Lung RADS Cat 2 - Benign Appearance / Behavior: Nodules with a very low likelihood of becoming a clinically active cancer due to size or lack of growth Lung-RADS 1.0 CATEGORIES: Category 0 - Prior chest CT exam(s) being located for comparison. Category 1 - Annual screening in 12 months. No nodules or definitely benign nodules. Category 2 - Annual screening in 12 months. Benign appearance. Nodules with low likelihood of becoming active cancer. Category 3 - 6-month follow-up. Probably benign. Short-term follow-up suggested. Nodules with low likelihood of becoming active cancer. Category 4A - 3-month follow-up and CT/PET if >8 mm in size. Suspicious finding. Findings which require additional testing. Category 4B - Findings which require additional testing and tissue sampling. Suspicious finding. Category 4X - Category 3 or 4 nodules with additional features or imaging findings that increases the suspicion of malignancy. Modifier S- Potentially clinically significant finding. (Non lung cancer) RADIATION DOSE DELIVERED: 35.77mGy.cm Total DLP 35.77mGy.cmTotal DLP DATA REPOSITORY: All CT scans at this facility are submitted to the National Radiology Data Registry (NRDR) Dose Index Registry (DIR) with the [employer] (ACR). RADIATION OPTIMIZATION: All CT scans at this facility use at least one of these dose optimization techniques: automated exposure control; mA and/or kV adjustment per patient size (includes targeted exams where dose is matched to clinical indication); or iterative reconstruction.
== END 2025-01-29 00:45 ==
LOC: DI 00:25
PROVIDERS: PCP Physician Assistant Medical; Visit Provider Physician Assistant Medical
DX: Z12.2 Encounter for screening for malignant neoplasm of respiratory organs (principal); F17.210 Nicotine dependence, cigarettes, uncomplicated; Z13.6 Encounter for screening for cardiovascular disorders; R91.8 Other nonspecific abnormal finding of lung field
CPT/HCPCS: 71271; 76706

== ENCOUNTER 2025-04-14 15:18 | Outpatient (REF) | payer MEDICARE, OTHER, SELFPAY ==
[2025-04-14 15:38] LABS: Abs Immature Grans 0.02 10^3/uL (0.0-0.06); HCT 40.8 % (36.0-46.0); HGB 13.6 g/dL (11.2-15.7); Immature Grans % 0.2 %; MCH 30.2 pg (27.0-33.0); MCHC 33.3 % (32.0-36.0); MCV 91 fL (80-95); MPV 10.4 fL (8.0-11.0); Platelet Count 271 10^3/uL (130-400); RBC 4.50 10^6/uL (3.93-5.22); RDW 14.6 % (11.7-14.6); RDW-SD 49.2 fL; WBC 9.21 10^3/uL (4.4-10.8)
[2025-04-14 16:11] LABS: ALT 20 U/L (14-59); AST 10 U/L (15-37); Albumin 3.7 g/dL (3.4-5.0); Alkaline Phosphatase 74 U/L (46-116); Anion Gap 8.9 mmol/L (3-11); BUN 18 mg/dL (7-18); Bilirubin, Total 0.4 mg/dL (0.2-1.0); CO2 28.1 mmol/L (21.0-32.0); Calcium 9.4 mg/dL (8.5-10.1); Calculated LDL 228 mg/dL (<100); Chloride 102 mmol/L (98-107); Cholesterol 314 mg/dL (<200); Estimated GFR 56.81 (mL/min/1.73m2); Glucose 108 mg/dL (74-106); HDL Cholesterol 35 mg/dL (>or=50); Potassium 4.2 mmol/L (3.5-5.1); Sodium 139 mmol/L (136-145); Total Protein 6.8 g/dL (6.4-8.2); Triglyceride 255 mg/dL (<150)
[2025-04-14 17:07] LABS: Magnesium 1.9 mg/dL (1.8-2.4)
[2025-04-14 17:29] LABS: Hemoglobin A1C 5.5 % (<5.7)
== END 2025-04-14 15:19 | disposition home or self-care (01) ==
LOC: NCHCN 15:18
PROVIDERS: PCP Physician Assistant Medical; Visit Provider Physician Assistant Medical
DX: E78.5 Hyperlipidemia, unspecified (principal); R73.03 Prediabetes
CPT/HCPCS: 80053; 80061; 83036; 83735; 85025